=== PATIENT | male | born 1960 | race Caucasian/White ===

== ENCOUNTER 2020-01-16 08:37 | Day surgery (SDC) | payer OTHER, SELFPAY ==
[2020-01-12 08:25] VITALS: BMI 29.1
--- NOTE | 2020-01-15 09:43 | P.CONAN_ITS ---
Documented by User: Gill Shepherd 01/15/20 09:51 HPI - Anesthesia Eval Consult details Narrative: 59yo M for Upper Endoscopy and Colonoscopy Plavix for PAD - OK'd to stop 3 days preop per vascular H/O trach [facility] Past Medical History Medical History (Updated 01/16/20 @ 09:17 by Yuriy Hammond) Atrial fibrillation COPD (chronic obstructive pulmonary disease) GERD (gastroesophageal reflux disease) History of Palmer's esophagus History of femoral angiogram Lab test negative for COVID-19 virus Peripheral arterial disease Splenic vein thrombosis Surgical History Surgical History (Updated 01/15/20 @ 09:45 by Gill Shepherd) H/O colonoscopy History of esophagogastroduodenoscopy (EGD) Hx of tracheostomy Social History Social History (Updated 01/16/20 @ 09:24 by Yuriy Hammond) Smoking Status: Current every day smoker Packs Per Day: 1 Years Smoked: 40 Smoking Quit Date: 04/2019 started smoking again August 2019 Advance Directives Information Provided: No Meds Allergies Allergy/AdvReac Type Severity Reaction Status Date / Time No Known Allergies Allergy Verified 01/12/20 08:31 Home Medications Medication Instructions Recorded Confirmed Type aspirin [Aspirin Low Dose] 81 mg PO DAILY 01/12/20 01/16/20 History pantoprazole 40 mg PO DAILY 01/12/20 01/12/20 History tamsulosin 0.8 mg PO BEDTIME 01/12/20 01/12/20 History tiotropium bromide [Spiriva with 1 cap INHALATION DAILY 01/12/20 01/12/20 History HandiHaler] clopidogrel 1 tab PO DAILY 01/15/20 01/16/20 History Exam Exam Date and Time: January 15, 2020 0943 Height,Weight and Vital Signs: Height 6 ft Weight 97.522 kg Assessment and Plan Assessment Anesthesia Assessment: Chart Reviewed Documented by User: Yuriy Hammond 01/16/20 09:53 [facility] Past Medical History Medical History (Updated 01/16/20 @ 09:17 by Yuriy Hammond) Atrial fibrillation COPD (chronic obstructive pulmonary disease) GERD (gastroesophageal reflux disease) History of Palmer's esophagus History of femoral angiogram Lab test negative for COVID-19 virus Peripheral arterial disease Splenic vein thrombosis Surgical History Surgical History (Updated 01/15/20 @ 09:45 by Gill Shepherd) H/O colonoscopy History of esophagogastroduodenoscopy (EGD) Hx of tracheostomy Social History Social History (Updated 01/16/20 @ 09:24 by Yuriy Hammond) Smoking Status: Current every day smoker Packs Per Day: 1 Years Smoked: 40 Smoking Quit Date: 04/2019 started smoking again August 2019 Advance Directives Information Provided: No Meds Allergies Allergy/AdvReac Type Severity Reaction Status Date / Time No Known Allergies Allergy Verified 01/12/20 08:31 Home Medications Medication Instructions Recorded Confirmed Type aspirin [Aspirin Low Dose] 81 mg PO DAILY 01/12/20 01/16/20 History pantoprazole 40 mg PO DAILY 01/12/20 01/12/20 History tamsulosin 0.8 mg PO BEDTIME 01/12/20 01/12/20 History tiotropium bromide [Spiriva with 1 cap INHALATION DAILY 01/12/20 01/12/20 History HandiHaler] clopidogrel 1 tab PO DAILY 01/15/20 01/16/20 History Exam Airway Mallampati Class: II TM Dist: >3cm Neck ROM: Full Denture: Upper and Lower Heart: irreg Assessment and Plan Assessment Anesthesia Assessment: Anesthesia Plan Discussed Final Anesthetic Review NPO: Yes ASA Class: III Final Preanesthetic Review: Consent Obtained/Reviewed Anesthetic Plan Anesthetic Plan: MAC: Disposition: Standard PACU
[2020-01-16 08:55] VITALS: BP 138/93; PULSE 71; RESP 18; TEMP 36.6; O2SAT 97
[2020-01-16] MEDS: Lactated Ringers 1,000 ML 100 ML IVCONT (09:06)
[2020-01-16 09:44] LABS: COVID-19 Test Negative (Negative); IDNOW Serial# 9DD0AD1C
[2020-01-16] MEDS: Albuterol Sulfate (0.083%) 2.5 MG/3 ML VIAL.NEB INHALE (09:56)
[2020-01-16 11:09] VITALS: BP 107/76; PULSE 63; RESP 18; TEMP 36.2; O2SAT 99
--- NOTE | 2020-01-16 11:12 | PM.OP ---
Brief Operative Note Date of Service: 01/16/20 Pre-op diagnosis: Palmer's esophagus, Screening Post-op diagnosis: other (Hiatal hernia, Palmer's esophagus, Colon polyps) Procedure: EGD with biopsies, Colonoscopy to cecum and TI with biopsy and removal of polyps Surgeon: Quinton Campos Anesthesia: MAC Estimated blood loss (mL): 4.0 Pathology: other (A. EG Junction at 39cm B. Polyp at 30cm C. Rectal polyp) Condition: stable Disposition: PACU
[2020-01-16 11:24] VITALS: BP 111/67; PULSE 63; RESP 18; O2SAT 99
--- NOTE | 2020-01-16 11:28 | OP_ITS ---
SURGEON: Quinton Capmos MD INDICATIONS: The patient presents for evaluation of Palmer's esophagus and colorectal cancer screening. Full consent has been obtained from him for this, including risks of bleeding and perforation. PREOPERATIVE DIAGNOSIS: POSTOPERATIVE DIAGNOSIS: PROCEDURE PERFORMED: Esophagogastroduodenoscopy with biopsies, and colonoscopy to cecum and terminal ileum with biopsy and removal of polyps. ESTIMATED BLOOD LOSS: COMPLICATIONS: ANESTHESIA: Monitored anesthesia care. ASSISTANTS: SPECIMENS: PREOPERATIVE DIAGNOSES: Gastroesophageal reflux, Palmer's esophagus, colorectal cancer screening. POSTOPERATIVE DIAGNOSES: Gastroesophageal reflux, Palmer's esophagus, colorectal cancer screening, hiatal hernia, colon polyps, diverticulosis and internal hemorrhoids. DESCRIPTION OF PROCEDURE: The patient was placed in the left lateral decubitus position. The Olympus video gastroscope was passed in the posterior oropharynx and upper esophagus under direct vision. The scope was passed slowly into the distal esophagus. The gastroesophageal junction appeared at 39 cm. There was some small, less than 1 cm areas of probable Palmer's mucosa. There was no evidence of any inflammation, lesions, nor ulceration. The scope was entered into the stomach. There was a small hiatal hernia. The scope was advanced to the pylorus and the duodenum was cannulated to the descending portion. The duodenum including the bulb appeared normal without mass or ulceration. The scope was withdrawn back in the stomach. The gastric antrum and body appeared normal with good peristalsis. The scope was retroflexed visualizing the proximal stomach carefully, which appeared normal, without any sign of mass or ulceration. The scope was straightened out and withdrawn back into the esophagus. Biopsies were obtained at the EG junction at 39 cm. Proximal to that, the esophageal mucosa appeared normal. The scope was withdrawn from the patient. He was turned around for colonoscopy. The digital rectal exam revealed no abnormalities. The Olympus video pediatric colonoscope was entered into the rectum and advanced easily to the cecum. Once in the cecum, I did identify normal-appearing cecal pouch with appendiceal orifice and a normal-appearing ileocecal valve. The terminal ileum was cannulated and appeared normal. The scope was withdrawn back in the colon. The entire cecum and ileocecal valve appeared normal. The scope was slowly withdrawn assessing all mucosal surfaces carefully. Preparation was excellent. At 30 cm and in the rectum, were flat approximately 4 or 5 mm probable hyperplastic polyps, which were each biopsied and completely removed with cold biopsy forceps. I did not visualize any other polyps, colitis, nor angiodysplasia. There was a mild amount of sigmoid diverticulosis. In the rectum, scope was retroflexed visualizing internal hemorrhoids, but no other pathology. The rectal mucosa appeared normal. The scope was straightened out and withdrawn from the patient. He tolerated both procedures well and was returned to the recovery area in stable condition. IMPRESSION: 1. Gastroesophageal reflux, hiatal hernia, history of Palmer's esophagus. 2. Colon polyps. 3. Diverticulosis. 4. Internal hemorrhoids. PLAN: The results of the biopsies will be checked. I would recommend a repeat upper endoscopy in 3 years assuming the Palmer's esophagus biopsies, had no dysplasia. He will continue his pantoprazole. If the colon polyps are tubular adenoma, I would recommend a followup colonoscopy in 5 years. If they are only hyperplastic, I would recommend a followup colonoscopy in 10 years. He was advised to resume his aspirin and Plavix in the next 24 to 48 hours. MD DARREL Sharp/ALISON / [id number]
--- NOTE | 2020-01-16 12:06 | HO.POSTANES ---
Post Anesthesia Evaluation Post Anesthesia Evaluation Vital Signs: Vital Signs Temp Pulse Resp BP Pulse Ox 01/16/20 11:24 97.1 F 63 18 111/67 99 01/16/20 11:09 97.1 F 63 18 107/76 99 01/16/20 08:55 97.8 F 71 18 138/93 H 97 Anesthesia: Monitored Mental Status: Awake Pain Control: Satisfactory Nausea/Vomiting: None Hydration: Adequate Anesthesia-Related Issues: No Anes. Related Issues
== END 2020-01-16 12:06 | disposition home or self-care (01) ==
PROVIDERS: Anesthesiology; PCP Internal Medicine Medical Oncology; Visit Provider Internal Medicine
PROC: (CPT 45380; principal; 2020-01-16 09:40)
DX: Z12.11 Encounter for screening for malignant neoplasm of colon (principal); K63.5 Polyp of colon; K62.1 Rectal polyp; K57.30 Diverticulosis of large intestine without perforation or abscess without bleeding; K64.8 Other hemorrhoids; K22.70 Barrett's esophagus without dysplasia; K21.9 Gastro-esophageal reflux disease without esophagitis; K44.9 Diaphragmatic hernia without obstruction or gangrene; I48.91 Unspecified atrial fibrillation; J44.9 Chronic obstructive pulmonary disease, unspecified; F17.210 Nicotine dependence, cigarettes, uncomplicated; Z79.82 Long term (current) use of aspirin; Z79.899 Other long term (current) drug therapy; Z79.51 Long term (current) use of inhaled steroids
CPT/HCPCS: 45380; 43239; 87635; 88305

== ENCOUNTER 2020-03-24 13:15 | Outpatient (REF) | payer OTHER, SELFPAY ==
--- NOTE | 2020-03-24 | US_ITS ---
EXAMINATION: COLOR-FLOW DUPLEX IMAGING OF THE BILATERAL LOWER EXTREMITY ARTERIAL SYSTEM. VELOCITY MEASUREMENTS THROUGHOUT THE FEMORAL ARTERIES WITH ANKLE-BRACHIAL PERIPHERAL ARTERIAL TESTING. CLINICAL INFORMATION: This is a 58-year-old male with peripheral vascular disease. History of stenting. Interventional Radiologist: Elder Eisenberg M.D., F.S.I.R., F.A.C.R. RIGHT FEMORAL RUNOFF VELOCITIES: The right common femoral artery measures 219 cm/s and triphasic. The right profunda femoral artery is 256 cm/s and is biphasic. Right proximal superficial femoral artery measures 133 cm/s and triphasic. Mid superficial femoral artery is 114 cm/s and triphasic. Distal right superficial femoral artery measures 192 cm/s and is triphasic. Right popliteal velocity measures 116 cm/s and is triphasic. The posterior tibial artery velocity measures 26 cm/s and was monophasic. The right ankle-brachial index is 0.95. This is in the dorsalis pedis. The right ankle-brachial index in the posterior tibial measured 0.46. The stent on the right side was evaluated as below: [place] artery proximal to the stent: 192 cm/s and triphasic. Proximal stent: 182 cm/s and triphasic. Mid stent: 148 cm/s and triphasic. Distal stent: 122 cm/s and triphasic. The [place] artery distal to the stent 147 cm/s and triphasic. LEFT FEMORAL RUNOFF VELOCITIES: The left common femoral artery measures 236 cm/s and triphasic. The left profunda femoral artery is 200 cm/s and is triphasic. Left proximal superficial femoral artery measures 137 cm/s and triphasic. Mid superficial femoral artery is 120 cm/s and triphasic. Distal left superficial femoral artery measures 138 cm/s and is triphasic. Left popliteal velocity measures 129 cm/s and is triphasic. The posterior tibial artery velocity measures 72 cm/s and was monophasic. The left ankle-brachial index is 1.14. US/US VANCE complete IMPRESSION: 1. The stent in the right side appears to be patent without hemodynamically significant stenosis. 2. There are elevated velocities bilaterally within the common femoral arteries and profunda femoral arteries which is suspicious for hemodynamically significant inflow stenoses.
--- NOTE | 2020-03-24 | US_ITS ---
EXAMINATION: COLOR-FLOW DUPLEX IMAGING OF THE BILATERAL LOWER EXTREMITY ARTERIAL SYSTEM. VELOCITY MEASUREMENTS THROUGHOUT THE FEMORAL ARTERIES WITH ANKLE-BRACHIAL PERIPHERAL ARTERIAL TESTING. CLINICAL INFORMATION: This is a 58-year-old male with peripheral vascular disease. History of stenting. Interventional Radiologist: Elder Eisenberg M.D., F.S.I.R., F.A.C.R. RIGHT FEMORAL RUNOFF VELOCITIES: The right common femoral artery measures 219 cm/s and triphasic. The right profunda femoral artery is 256 cm/s and is biphasic. Right proximal superficial femoral artery measures 133 cm/s and triphasic. Mid superficial femoral artery is 114 cm/s and triphasic. Distal right superficial femoral artery measures 192 cm/s and is triphasic. Right popliteal velocity measures 116 cm/s and is triphasic. The posterior tibial artery velocity measures 26 cm/s and was monophasic. The right ankle-brachial index is 0.95. This is in the dorsalis pedis. The right ankle-brachial index in the posterior tibial measured 0.46. The stent on the right side was evaluated as below: [place] artery proximal to the stent: 192 cm/s and triphasic. Proximal stent: 182 cm/s and triphasic. Mid stent: 148 cm/s and triphasic. Distal stent: 122 cm/s and triphasic. [place] artery distal to the stent 147 cm/s and triphasic. LEFT FEMORAL RUNOFF VELOCITIES: The left common femoral artery measures 236 cm/s and triphasic. The left profunda femoral artery is 200 cm/s and is triphasic. Left proximal superficial femoral artery measures 137 cm/s and triphasic. Mid superficial femoral artery is 120 cm/s and triphasic. Distal left superficial femoral artery measures 138 cm/s and is triphasic. Left popliteal velocity measures 129 cm/s and is triphasic. The posterior tibial artery velocity measures 72 cm/s and was monophasic. The left ankle-brachial index is 1.14. US/US arterial duplex LE BI IMPRESSION: 1. The stent in the right side appears to be patent without hemodynamically significant stenosis. 2. There are elevated velocities bilaterally within the common femoral arteries and profunda femoral arteries which is suspicious for hemodynamically significant inflow stenoses.
== END 2020-03-24 13:16 | disposition home or self-care (01) ==
LOC: HO.US 13:15
PROVIDERS: Visit Provider Surgery Vascular Surgery
DX: I73.9 Peripheral vascular disease, unspecified (principal)
CPT/HCPCS: 93923; 93925

== ENCOUNTER → 2020-05-04 15:26 | Outpatient (BNVA) | payer OTHER, SELFPAY | PROVIDERS: PCP Internal Medicine Medical Oncology; Visit Provider Surgery Vascular Surgery ==

== ENCOUNTER 2023-04-11 08:55 | Outpatient (REF) | payer MEDICARE, SELFPAY ==
--- NOTE | ~2023-04-11 | XR_ITS ---
EXAMINATION: XR LUMBOSACRAL SPINE WITH OBLIQUES CLINICAL INFORMATION: Right-sided low back pain with right-sided sciatica COMPARISON: None available. TECHNIQUE: 6 views of the lumbosacral spine FINDINGS: Overlying bowel gas limits evaluation. No acute visible fracture or dislocation. Mild multilevel degenerative changes with disc space narrowing, osteophyte formation, and facet arthropathy. Vertebral body heights and disc spaces are maintained. Posterior elements are intact. Paraspinal soft tissues are unremarkable. XR/XR lumbar spine 4V min IMPRESSION: 1. Overlying bowel gas limits evaluation. 2. No acute visible fracture or dislocation. 3. Mild multilevel degenerative changes.
[2023-04-11 09:18] LABS: MANUAL DIFF FLAG NO
[2023-04-11 09:48] LABS: Basophils Absolute Auto 0.1 X10*3/uL (0.0-0.2); Basophils Percent Auto 0.9 % (0-2); Eosinophils Absolute Auto 0.1 X10*3/uL (0.0-0.4); Eosinophils Percent Auto 2.2 % (0-4); Hematocrit 51.2 % (42.0-52.0); Hemoglobin 17.1 g/dl (14.0-18.0); Imm Gran Abs Auto 0.02 X10*3/uL (0.00-0.03); Imm Gran Pct Auto 0.3 % (0.0-0.4); Lymphocytes Absolute Auto 1.5 X10*3/uL (1.2-4.9); Lymphocytes Percent Auto 26.3 % (20-40); Mean Corpuscular HGB Conc 33.4 g/dl (31.0-36.0); Mean Corpuscular Hemoglobin 31.8 pg (27.0-33.0); Mean Corpuscular Volume 95.2 fL (80.0-98.0); Mean Platelet Volume 9.6 fL (9.4-12.4); Monocytes Absolute Auto 0.6 X10*3/uL (0.1-1.2); Monocytes Percent Auto 9.9 % (2-11); Neutrophils Absolute Auto 3.5 x10*3/uL (2.0-8.3); Neutrophils Percent Auto 60.4 % (45-73); Platelet Count 299 X10*3/uL (160-400); Red Blood Count 5.38 X10*6/uL (4.60-5.80); Red Cell Distribution Width 12.1 % (11.0-16.0); White Blood Count 5.9 X10*3/uL (4.8-10.8)
[2023-04-11 10:32] LABS: Alanine Aminotransferase 15 U/L (0-40); Albumin Level 3.8 g/dL (3.5-5.0); Alkaline Phosphatase 61 U/L (39-117); Anion Gap 11 (12-20); Aspartate Amino Transferase 22 U/L (5-37); Bilirubin Total 0.8 mg/dL (0.0-1.0); Blood Urea Nitrogen 16 mg/dL (9-16); Calcium 9.3 mg/dL (8.4-10.2); Carbon Dioxide 28 mmol/L (22-29); Chloride 105 mmol/L (96-108); Cholesterol 148 mg/dL (<200); Estimated Glomerular Filt Rate > 60; Glucose Fasting 91 mg/dL (60-99); HDL Cholesterol 57 mg/dL (>40); LDL Cholesterol Calculated 77 mg/dL (<100); Potassium 4.3 mmol/L (3.3-5.1); Sodium 140 mmol/L (135-145); Total Protein 6.4 g/dL (6.5-8.0); Triglycerides 72 mg/dL (<150)
[2023-04-11 10:44] LABS: Prostate Specific Antigen 1.08 ng/mL (<0.05-4.0)
== END 2023-04-11 08:56 | disposition home or self-care (01) ==
LOC: HO.XRAY 08:55
PROVIDERS: Visit Provider Internal Medicine Medical Oncology
DX: M54.41 Lumbago with sciatica, right side (principal); N40.1 Benign prostatic hyperplasia with lower urinary tract symptoms; N13.8 Other obstructive and reflux uropathy; K22.70 Barrett's esophagus without dysplasia; E66.3 Overweight; I73.9 Peripheral vascular disease, unspecified; E78.2 Mixed hyperlipidemia; Z12.5 Encounter for screening for malignant neoplasm of prostate
CPT/HCPCS: 36415; 72110; 80053; 80061; 84153; 85025

== ENCOUNTER 2023-05-10 08:41 | Outpatient (REF) | payer MEDICARE, SELFPAY ==
--- NOTE | ~2023-05-10 | US_ITS ---
EXAMINATION: Noninvasive assessment of the bilateral lower extremities with ARTERIAL DUPLEX and ANKLE BRACHIAL INDICES (ABIs). CLINICAL INFORMATION: Peripheral vascular disease with claudication TECHNIQUE: Duplex Doppler techniques with waveform analysis and measurement of velocities in the bilateral common femoral, profunda femoris, superficial femoral, popliteal and tibial arteries were performed. Additionally, ankle pulse volume recordings, ankle pressure measurements and ankle brachial indices were obtained of the lower extremity arterial system bilaterally. The study was performed only at rest. COMPARISON: 03/24/2020 FINDINGS: DIRECT DUPLEX DOPPLER FINDINGS: RIGHT LEG: Common femoral artery: 145 cm/s, phasicity: Triphasic. Mild calcified plaque Profunda femoris artery: 130 cm/s, phasicity: Triphasic Superficial femoral artery (proximal): 133 cm/s, phasicity: Triphasic. Mild noncalcified plaque Superficial femoral artery (mid): 73.6 cm/s, phasicity: Monophasic Superficial femoral artery (distal): Underlying vascular stent with occlusion at the proximal margin. Collateral vessels arising from the distal superficial femoral artery. Popliteal artery: Proximal segment is occluded. Reconstituted flow in the mid to distal segment. 29.0 Cm/s, phasicity: Monophasic Posterior tibial artery: Proximal and mid segments are occluded with reconstituted flow in the distal segment. Velocity measures 15.8 cm/s, phasicity: Monophasic Peroneal artery: 10.9 cm/s, phasicity: Monophasic Anterior tibial artery: 22.5 cm/s, phasicity: Monophasic Dorsalis pedis artery: Occluded LEFT LEG: Common femoral artery: 117 cm/s, phasicity: Triphasic Profunda femoris artery: 163 cm/s, phasicity: Triphasic Superficial femoral artery (proximal): 148 cm/s, phasicity: Triphasic Superficial femoral artery (mid): 118 cm/s, phasicity: Triphasic Superficial femoral artery (distal): 126 cm/s, phasicity: Triphasic Popliteal artery: 96 cm/s, phasicity: Triphasic Posterior tibial artery: 17.3 cm/s, phasicity: Monophasic within the proximal segment. Mid and distal segments are occluded Peroneal artery: 73.1 cm/s, phasicity: Biphasic Anterior tibial artery: 70.8 cm/s, phasicity: Triphasic Dorsalis pedis artery: 48.4 cm/s, phasicity: Monophasic ANKLE-BRACHIAL INDEX: Right: Nondiagnostic? Left: Nondiagnostic ANKLE PRESSURES: Right: PT inaudible, DP inaudible Left: PT?inaudible, DP?inaudible ANKLE PVR WAVEFORMS: Right: Abnormal Left: Abnormal US/US arterial duplex LE BI IMPRESSION: Right leg: Stent in the distal superficial femoral artery is occluded with occlusion extending through the proximal popliteal artery. Reconstituted flow in the distal popliteal artery. Markedly dampened arterial waveforms in the below-knee runoff vessels with areas of occlusive changes in the posterior tibial and dorsalis pedis artery Left leg: Patent arterial flow within the left lower extremity except for occlusive changes in the mid to distal posterior tibial artery. This critical result was discussed with Dr. Payton at 1114 on 05/10/2023 and it was ascertained that the content and urgency of the report was understood at the time of direct communication. VANCE Reference: - >1.4 = calcified vessels - 0.9 - 1.4 = normal - no significant arterial disease - 0.7 - 0.89 = mild peripheral arterial disease - 0.51 - 0.69 = moderate peripheral arterial disease - ? 0.50 = severe peripheral arterial disease - < .30 = critical arterial disease
== END 2023-05-10 08:42 | disposition home or self-care (01) ==
LOC: HO.US 08:41
PROVIDERS: PCP Internal Medicine Medical Oncology; Visit Provider Surgery Vascular Surgery
DX: I70.213 Atherosclerosis of native arteries of extremities with intermittent claudication, bilateral legs (principal)
CPT/HCPCS: 93923; 93925

== ENCOUNTER → 2023-05-15 10:30 | Outpatient (BNVA) | payer MEDICARE, SELFPAY | PROVIDERS: PCP Internal Medicine Medical Oncology; Visit Provider Surgery Vascular Surgery | DX: I73.9 Peripheral vascular disease, unspecified (principal) | CPT/HCPCS: 99202 ==

== ENCOUNTER 2023-06-18 08:36 | Outpatient (REF) | payer MEDICARE, SELFPAY ==
[2023-06-18 09:44] LABS: Blood Urea Nitrogen 12 mg/dL (9-16); Estimated Glomerular Filt Rate > 60
== END 2023-06-18 08:37 | disposition home or self-care (01) ==
LOC: HO.LAB 08:36
PROVIDERS: PCP Internal Medicine Medical Oncology; Visit Provider Surgery Vascular Surgery
DX: I73.9 Peripheral vascular disease, unspecified (principal)
CPT/HCPCS: 36415; 82565; 84520

== ENCOUNTER 2023-06-28 08:18 | Outpatient (REF) | payer MEDICARE, SELFPAY ==
--- NOTE | ~2023-06-28 | CT_ITS ---
STUDY PERFORMED: CTA ABDOMEN, PELVIS AND LOWER EXTREMITY RUNOFF WITH CONTRAST HISTORY: Reason for Exam I73.9 - Peripheral vascular disease, unspecified DESCRIPTION: Routine abdominal aorta and lower extremity runoff CTA protocol with contrast was performed. 100 mL of Omnipaque was administered. 3D POSTPROCESSING: Multiple 3-D angiographic images were processed from the initial data set by the [facility] under concurrent physician supervision. DOSE LOWERING TECHNIQUES: This CT examination was performed using dose optimization techniques as appropriate, variously including the following: - Automated exposure control - Adjustment of mA and/or kV according to patient size (this includes techniques or standardized protocols for targeted exams where dose is matched to indication/reason for exam; i.e. extremities or head) - Use of iterative reconstruction technique DLP: 733 mGycm. COMPARISON: Lower extremity duplex and ABIs 05/10/2023 FINDINGS: VASCULAR: ABDOMINAL AORTA: patent and normal in caliber RIGHT LOWER EXTREMITY: - Common Iliac Artery: patent - Internal Iliac Artery: patent - External Iliac Artery: patent - Common Femoral Artery: patent - Profunda Femoral Artery: patent - Superficial Femoral Artery: Scattered calcific and fibrofatty plaque causing at most mild stenoses. - Popliteal Artery: Occluded stent. There is reconstitution of the distal popliteal artery. - Anterior Tibial Artery: Fibrofatty and calcific plaque throughout, but appears patent -Tibioperoneal trunk: patent - Posterior Tibial Artery: Fibrofatty and calcific plaque throughout, but appears patent - Peroneal Artery: Fibrofatty and calcific plaque throughout, but appears patent LEFT LOWER EXTREMITY: - Common Iliac Artery: patent - Internal Iliac Artery: patent - External Iliac Artery: patent - Common Femoral Artery: patent - Profunda Femoral Artery: patent - Superficial Femoral Artery: patent - Popliteal Artery: Fibrofatty plaque causing 50% stenosis at the level of the joint space. - Anterior Tibial Artery: Multifocal fibrofatty and calcific plaque causing multifocal stenoses, but overall patent. -Tibioperoneal trunk: patent - Posterior Tibial Artery: Multifocal fibrofatty and calcific plaque causing multifocal stenoses, but overall patent. - Peroneal Artery: patent CELIOMESENTERIC ARTERIES: The celiac artery, SMA, and RONDA are patent RENAL ARTERIES: patent bilateral renal arteries NONVASCULAR: Lung Bases: The visualized lung bases are unremarkable. Liver and Biliary Tree: The liver is normal in size, shape, and attenuation. No focal hepatic lesion or biliary ductal dilatation is present. Gallbladder: The gallbladder is unremarkable with no evidence of radiopaque gallstones, gallbladder wall thickening, or obvious pericholecystic inflammatory changes. Pancreas: Unremarkable. Spleen: Unremarkable. Adrenal Glands: Unremarkable. Kidneys and Ureters: The kidneys are normal in size. Mild left-sided hydronephrosis. No hydroureter. Bladder: Unremarkable. Gastrointestinal Tract: The small and large bowel are unremarkable. The appendix is unremarkable. Abdominal Wall: Small fat-containing periumbilical hernia. Lymph Nodes: Normal. Pelvic Viscera: The prostate is enlarged. Osseous Structures: Unremarkable. CT/CT angio abd aorta runoff IMPRESSION: Vascular: Right lower extremity: Inflow: Patent Femoral-popliteal: Occluded popliteal artery stent, with reconstitution of the distal popliteal artery Runoff: Multifocal disease within all 3 tibial arteries Left lower extremity: Inflow: Patent Femoral-popliteal: Fibrofatty plaque in the mid popliteal artery causing 50% stenosis at the level of the joint space Runoff: The peroneal artery is patent. Multifocal plaque within the anterior tibial artery and posterior tibial artery, which appear patent Nonvascular: Mild left-sided hydronephrosis, but no hydroureter
[2023-06-28] MEDS: iohexoL 350 MG/ML 100 ML INFUS..BTL IV (09:53)
== END 2023-06-28 08:19 | disposition home or self-care (01) ==
LOC: HO.CT 08:18
PROVIDERS: PCP Internal Medicine Medical Oncology; Visit Provider Surgery Vascular Surgery
DX: I73.9 Peripheral vascular disease, unspecified (principal)
CPT/HCPCS: 75635; Q9967

== ENCOUNTER 2023-07-03 11:15 | Outpatient (AMB) | payer MEDICARE, SELFPAY ==
--- NOTE | 2023-07-03 11:23 | MHC.OFFVIS ---
Intake Visit Reasons: f/u s/p CTA w/ runoff 06/28/23 *urgent* Intake Note: Patient presents for 06/28/23 CTA follow up. Patient is complaining about pain and numbing in the right foot, makes it hard for him to sleep. Taking tylenol and ibuprofen. Pain exasterbates with climbing stairs and walking. Right great toe has some swelling and patient states it seeps blood under the nail. Accompanied by: Self / Same As Patient Allergies No Known Allergies Allergy (Verified 07/03/23 11:27) HPI HPI f/u s/p CTA w/ runoff 06/28/23 *urgent*: Details: Pleasant 63-year-old gentleman presents for follow-up status post CT angiogram. He reports that he has continued claudication right more so than left. He can barely walk a block. Undergone right SFA plasty and stent in May of 2019. He was lost to follow-up. At the current time he works for [employer] and has difficulty doing his job. He now presents for follow-up. [facility] Medical History Atrial fibrillation History of Palmer's esophagus Splenic vein thrombosis History of femoral angiogram GERD (gastroesophageal reflux disease) Lab test negative for COVID-19 virus COPD (chronic obstructive pulmonary disease) Peripheral arterial disease Surgical History Hx of tracheostomy History of esophagogastroduodenoscopy (EGD) H/O colonoscopy Social History Patient Tobacco Use Status: Former Tobacco user Cigarette Packs Per Day: 1 Years Smoked: 40 Review of Systems Const All systems reviewed & are unremarkable except as noted in HPI and below Reports no additional complaints ENT Reports Normal hearing present Card Denies chest pain, Denies chest pain at rest, Denies chest pain with activity and Denies pedal edema Resp Denies cough GI Denies abdominal pain Musc Denies abnormal gait, Denies muscle cramps and Denies radiating pain into limb Skin/Breast Denies skin ulcer and Denies wounds Neuro Reports Normal hearing present and Denies abnormal gait Psych Reports no additional complaints Physical Exam Const General: cooperative, healthy appearing and comfortable Orientation/consciousness: oriented to person, oriented to place and oriented to time HEENT Head: Yes normal to inspection Neck Neck: Yes normal visual inspection Carotids: no bruits Chest Chest palpation & inspection: normal inspection of the chest Resp Effort & Inspection: normal respiratory effort and able to speak in complete sentences Auscultation: clear to auscultation bilaterally, no crackles, no rales, no rhonchi and no wheezes Cardio Other: Bilateral DP signals Rate: regular rate Rhythm: regular rhythm Heart sounds: S1 normal heart sound present and S2 normal heart sound present Bruits: no carotid bruits GI Inspection: Yes normal to inspection Skin Wounds: no wounds Hair: normal Neuro General: oriented to person, oriented to place and oriented to time Cranial nerves: Yes CN's II-XII intact bilaterally and Yes Normal hearing present Cognition (Neuro): normal cognition Motor exam (neuro): 5/5 motor strength present throughout Extrem Other: venous exam: No significant superficial varicosities or spider telangiectasias, minimal edema General: No clubbing, No cyanosis and No edema Psych Appearance: grossly normal Mental Status: mental status grossly normal Speech and movement: Normal speech and movement present Results Reviewed Results Reviewed: CT angiogram dated 06/28/2023 demonstrates right SFA stent occlusion. Written report and images were reviewed. Assessment & Plan Assessment & Plan (1) Peripheral arterial disease: Comment: 06/18/2019 right SFA stent right popliteal plasty Code(s): I73.9 - Peripheral vascular disease, unspecified Category: Medical Plan Patient notes leg pain when walking distances. I have discussed the pathophysiology of peripheral vascular disease with the patient. I have also discussed risk factor modification. I have reviewed the patient's CT scan demonstrates right SFA occlusion . the patient would benefit from a right leg endovascular peripheral angiogram with possible angioplasty, stent, and/or atherectomy. This has been discussed in detail with the patient along with risks, benefits, and complications. This includes but is not limited to bleeding, infection, heart attack, need for emergent surgical repair, limb ischemia, blood vessel damage, bleeding, puncture, kidney injury, bruising, allergic reaction, and skin reaction. The patient demonstrates a clear understanding. We will schedule for the next appropriate time. Thank you for allowing us to assist in this patient's care. Coding Level of Care Code Est Pt Level 4 (90667) Diagnoses Peripheral arterial disease I73.9
== END 2023-07-03 11:50 | disposition home or self-care (01) ==
PROVIDERS: PCP Internal Medicine Medical Oncology; Visit Provider Surgery Vascular Surgery
DX: I73.9 Peripheral vascular disease, unspecified (principal)
CPT/HCPCS: 99214

== ENCOUNTER → 2023-07-03 11:15 | Outpatient (BNVA) | payer MEDICARE, SELFPAY | PROVIDERS: PCP Internal Medicine Medical Oncology; Visit Provider Surgery Vascular Surgery | DX: I73.9 Peripheral vascular disease, unspecified (principal) | CPT/HCPCS: 99212 ==

== ENCOUNTER 2023-07-18 05:58 | Day surgery (SDC) | payer MEDICARE, SELFPAY ==
[2023-07-18] VITALS (8 sets, daily range): BP systolic 124–144; BP diastolic 60–75; PULSE 61–77; RESP 14–18; TEMP 37.1–37.2; O2SAT 95–99; BMI 25.4
[2023-07-18 06:25] LABS: MANUAL DIFF FLAG NO
[2023-07-18 06:26] LABS: Basophils Absolute Auto 0.1 X10*3/uL (0.0-0.2); Basophils Percent Auto 0.6 % (0-2); Eosinophils Absolute Auto 0.2 X10*3/uL (0.0-0.4); Eosinophils Percent Auto 3.1 % (0-4); Hematocrit 42.7 % (42.0-52.0); Imm Gran Abs Auto 0.03 X10*3/uL (0.00-0.03); Imm Gran Pct Auto 0.4 % (0.0-0.4); Lymphocytes Absolute Auto 1.9 X10*3/uL (1.2-4.9); Lymphocytes Percent Auto 25.2 % (20-40); Mean Corpuscular HGB Conc 35.1 g/dl (31.0-36.0); Mean Corpuscular Hemoglobin 33.3 pg (27.0-33.0); Mean Corpuscular Volume 94.7 fL (80.0-98.0); Mean Platelet Volume 9.3 fL (9.4-12.4); Monocytes Absolute Auto 0.8 X10*3/uL (0.1-1.2); Monocytes Percent Auto 10.8 % (2-11); Neutrophils Absolute Auto 4.6 x10*3/uL (2.0-8.3); Neutrophils Percent Auto 59.9 % (45-73); Platelet Count 303 X10*3/uL (160-400); Red Blood Count 4.51 X10*6/uL (4.60-5.80); Red Cell Distribution Width 13.4 % (11.0-16.0); White Blood Count 7.7 X10*3/uL (4.8-10.8)
[2023-07-18 06:52] LABS: Blood Urea Nitrogen 22 mg/dL (9-16); Creatinine Clr Calc Pharmacy 87.8; Estimated Glomerular Filt Rate > 60
[2023-07-18] MEDS: Albuterol Sulfate (0.083%) 2.5 MG/3 ML VIAL.NEB INHALE (07:17)
--- NOTE | 2023-07-18 07:24 | PC.NURSE ---
at 623 md made aware of questionable rhythm with irregularly regular. no ekg in computer to compare and none wanted today to be done per dr ortiz.
--- NOTE | 2023-07-18 09:21 | W.PM.OPN ---
Operative Note Operative Note Date of Service: 07/18/23 Narrative: Angiogram report from [facility] Preoperative diagnosis: Atherosclerosis of right lower extremity with activity limiting claudication Postoperative diagnosis: Same Procedure: 1. Ultrasound-guided left common femoral access 2. Aortogram with right lower extremity runoff Surgeon:Bimal Knott M.D., FACS, RPVI [place]pper Hand:None Anesthesia: Local with moderate conscious sedation. Total intraservice moderate sedation time was 47 minutes. I monitored the patient's level of consciousness and physiologic status continuously throughout the procedure. Specimens:none Drains:none Estimated blood loss: Less than 10 ml Implant: None Indications: Very pleasant 63-year-old gentleman who has had undergone prior right lower extremity stenting which has gone on to occlude. He now presents for angiogram with possible intervention. The patient has signed the informed consent after reviewing risks, complications, benefits, and alternatives previously discussed with the patient. The patient was given the opportunity to ask any additional questions or voice any concerns. All questions were answered to the patient's satisfaction. Procedure in detail: Patient was brought to the angiography suite prior to which a time-out was called for patient identification and site verification. Bilateral groins were prepped and draped in the standard surgical fashion. Under ultrasound guidance left common femoral was punctured with micro puncture needle and wire. Subsequently a precision 4 [place] sheath was then placed. Bentson wire was advanced to the level of the aorta. 4 [place] Flush catheter was brought up and parked at the level of the renal arteries. Aortogram was then undertaken. Catheter was brought down to the level of the iliac bifurcation. Iliacs were subsequently imaged. Catheter was then brought in up and over to the right side SFA. Runoff study was then undertaken. We then exchanged for an up and over 5 [place] sheath. At this time 5000 units of systemic heparin was administered. We used a Glidewire Advantage to try to advance through the prior right distal SFA occlusion. Multiple attempts were made to try to cross beyond the stent into the popliteal occlusion. We exchanged out for a stiff glidewire, and then a to room 0 mm wire which was an 018 wire. Multiple attempts with multiple orthogonal views were attempted to traverse this occlusion. We were unsuccessful. At this time we did a full on diagnostic angiogram catheter wire sheath was then brought back to the ipsilateral side and StarClose closure device was then deployed. Interpretation of films: 1. Ultrasound demonstrates appropriate femoral puncture. Image of which was saved. 2. Aortogram demonstrates appropriate caliber aorta. Minimal disease. Appropriate take-off of the renals. 3. Iliac images demonstrate no significant disease 4. Right Leg Common femoral artery: No significant disease Profundus Femoris: No significant disease Superficial femoral artery: Patent to Abbe's canal and occludes at the prior stent Popliteal artery (p1,p2,p3): P1 segment is occluded it reconstitutes at the P2 segment exactly at the behind knee popliteal Anterior tibial artery: Dominant runoff to the foot Peroneal artery: Occluded Posterior tibial artery: Occluded Dorsalis pedis/plantar arch: Incomplete Conclusion: 1. Successful diagnostic angiogram. Patient will require fem to below-knee popliteal bypass if required. 2. Anticoagulation status: No change This note is constructed using voice recognition software. While every effort has been made to ensure accuracy, vacuum technician errors may have been included. Thank you for allowing me to participate in the care of your patient. Yours sincerely, Bimal Knott MD, FACS, R.P.V.I.
[2023-07-18] MEDS: oxyCODONE HCl Immed Release 5 MG TABLET PO (10:41)
== END 2023-07-18 13:30 | disposition home or self-care (01) ==
PROVIDERS: PCP Internal Medicine Medical Oncology; Visit Provider Surgery Vascular Surgery
PROC: (CPT 36247; 2023-07-18 07:30)
DX: I70.211 Atherosclerosis of native arteries of extremities with intermittent claudication, right leg (principal); G89.4 Chronic pain syndrome; G90.521 Complex regional pain syndrome I of right lower limb; I48.91 Unspecified atrial fibrillation; J44.9 Chronic obstructive pulmonary disease, unspecified; K21.9 Gastro-esophageal reflux disease without esophagitis; Z87.19 Personal history of other diseases of the digestive system; Z87.891 Personal history of nicotine dependence
CPT/HCPCS: 36247; 36415; 75630; 76937; 82565; 84520; 85025; 94640; 99152; 99153; A4364; C1725; C1757; C1760; C1769; C1887; J1644; J2250; J2310; J3010; Q9967

== ENCOUNTER → 2023-07-18 05:58 | Outpatient (BNV) | payer MEDICARE, SELFPAY | PROVIDERS: PCP Internal Medicine Medical Oncology; Visit Provider Surgery Vascular Surgery | DX: I70.211 Atherosclerosis of native arteries of extremities with intermittent claudication, right leg (principal) | CPT/HCPCS: 36247; 75625; 75710; 76937; 99152 ==

== ENCOUNTER 2023-07-24 09:24 | Outpatient (AMB) | payer MEDICARE, SELFPAY ==
--- NOTE | 2023-07-24 09:29 | MHC.OFFVIS ---
Vital Signs 07/24/23 09:40 Height 6 ft Weight 197 lb BMI 26.7 Intake Visit Reasons: 1 week angio follow up 07/18/2023 Intake Note: RIght Leg Angio 07/18/23. Pt states Right LE calf pain after walking about 50 feet, foot pain is constant w/ or w/o ambulation. Pt stated that they cut back on tylenol and ibuprofen. Accompanied by: Self / Same As Patient Allergies No Known Allergies Allergy (Verified 07/24/23 09:42) HPI HPI 1 week angio follow up 07/18/2023: Details: Very pleasant 63-year-old gentleman presents for follow-up status post diagnostic angiogram on 07/18/2023. Demonstrated distal SFA along with popliteal occlusion up to the P2 segment. He ambulates 30 ft at most. He does have difficulty climbing up a flight of stairs and it is unclear whether this is the leg pain or other issues. Does occasionally get short of breath. He now presents for routine postprocedure follow-up. [facility] Medical History (Updated 07/24/23 @ 10:32 by Bimal Knott MD) S/P angiogram of extremity (07/18/23) Atrial fibrillation History of Palmer's esophagus Splenic vein thrombosis History of femoral angiogram GERD (gastroesophageal reflux disease) Lab test negative for COVID-19 virus COPD (chronic obstructive pulmonary disease) Peripheral arterial disease Surgical History Hx of tracheostomy History of esophagogastroduodenoscopy (EGD) H/O colonoscopy Social History Patient Tobacco Use Status: Former Tobacco user Cigarette Packs Per Day: 1 Years Smoked: 40 Review of Systems Const All systems reviewed & are unremarkable except as noted in HPI and below Reports no additional complaints ENT Reports Normal hearing present Card Denies chest pain, Denies chest pain at rest, Denies chest pain with activity and Denies pedal edema Resp Denies cough GI Denies abdominal pain Musc Denies abnormal gait, Denies muscle cramps and Denies radiating pain into limb Skin/Breast Denies skin ulcer and Denies wounds Neuro Reports Normal hearing present and Denies abnormal gait Psych Reports no additional complaints Physical Exam Vital Signs: BMI result Body Mass Index 26.7 Const General: cooperative, healthy appearing and comfortable Orientation/consciousness: oriented to person, oriented to place and oriented to time HEENT Head: Yes normal to inspection Neck Neck: Yes normal visual inspection Carotids: no bruits Chest Chest palpation & inspection: normal inspection of the chest Resp Effort & Inspection: normal respiratory effort and able to speak in complete sentences Auscultation: clear to auscultation bilaterally, no crackles, no rales, no rhonchi and no wheezes Cardio Other: Bilateral DP signals Rate: regular rate Rhythm: regular rhythm Heart sounds: S1 normal heart sound present and S2 normal heart sound present Bruits: no carotid bruits Peripheral pulses: Peripheral pulses 2+ throughout GI Inspection: Yes normal to inspection Skin Wounds: no wounds Hair: normal Neuro General: oriented to person, oriented to place and oriented to time Cranial nerves: Yes CN's II-XII intact bilaterally and Yes Normal hearing present Cognition (Neuro): normal cognition Motor exam (neuro): 5/5 motor strength present throughout Extrem Other: venous exam: No significant superficial varicosities or spider telangiectasias, minimal edema General: No clubbing, No cyanosis and No edema Psych Appearance: grossly normal Mental Status: mental status grossly normal Speech and movement: Normal speech and movement present Assessment & Plan Assessment & Plan (1) Peripheral arterial disease: Comment: 06/18/2019 right SFA stent right popliteal plasty 07/18/2023 - diagnostic angiogram Code(s): I73.9 - Peripheral vascular disease, unspecified Category: Medical Plan: In short, patient has gone on to occlude the right SFA stent and he has occlusion distal to that down into the popliteal artery. Patient will require right femoral to popliteal bypass. This will be an extended procedure as it will require vein harvesting as it will be a below-knee bypass. Risks benefits complications were discussed in detail with the patient. He understood and would like to move forward. We will obtain cardiac risk stratification. In addition we will obtain pulmonary evaluation as well as he does have occasional shortness of breath. He will require vein mapping for vein harvest for the bypass. Finally we did refer him to pain management as well as he did have excessively high use Tylenol and nonsteroidals. We will schedule as soon as possible. Thank you for allowing us to assist in his care. If there are any questions or concerns please do not hesitate to contact us Orders: Referrals Pain Management Referral [id number] - Pain in right leg Coding Level of Care Code Est Pt Level 4 (88878) Diagnoses Peripheral arterial disease I73.9
[2023-07-24 09:40] VITALS: BMI 26.7
== END 2023-07-24 10:10 | disposition home or self-care (01) ==
PROVIDERS: PCP Internal Medicine Medical Oncology; Visit Provider Surgery Vascular Surgery
DX: I73.9 Peripheral vascular disease, unspecified (principal)
CPT/HCPCS: 99214

== ENCOUNTER → 2023-07-24 09:24 | Outpatient (BNVA) | payer MEDICARE, SELFPAY | PROVIDERS: PCP Internal Medicine Medical Oncology; Visit Provider Surgery Vascular Surgery | DX: I73.9 Peripheral vascular disease, unspecified (principal) | CPT/HCPCS: 99212 ==

== ENCOUNTER 2023-07-25 10:54 | Outpatient (AMB) | payer MEDICARE, SELFPAY ==
--- NOTE | 2023-07-25 10:59 | A.OFFVIS_ITS ---
Vital Signs 07/25/23 11:11 Height 6 ft Weight 186 lb 4 oz BMI 25.3 BP 142/66 H Blood Pressure Location Lt brachial Position Sitting Respiration 16 Pulse 62 Pulse Source Pulse Oximeter Pulse Oximetry (%) 96 Oxygen Delivery Method Room Air Intake Visit Reasons: RIGHT LEG PAIN Intake Note: Patient comes in for initial visit was referred by [facility] Vascular surgeon. Reports pain 10/05. Allergies No Known Allergies Allergy (Verified 07/25/23 11:11) HPI Comments Details: Zan is very pleasant 63 years old gentleman who presents in my office with complains on pain in the right lower extremity. He reported the pain started 6 months ago. He is patient of Dr. Knott, he is under observation for PND. He had interventional stent placement previously however recently he has progression of the atherosclerosis of the right lower extremity and now Dr. Knott is considering to perform femoral popliteal bypass on this patient. The patient was sent here to discuss pain management with me. He reports typical symptoms of vascular claudication with pain getting stronger the longer the distance he were walking. He is reporting severe pain at night which prevents him from sleeping. He reports that he needs to keep his leg below the level of the bed to help the pain in the leg at night. He is taking exuberant doses of the ibuprofen and Tylenol to help his pain. He reports his pain in terms of tissue damage as pulsing, throbbing, pounding, pinching, cramping, crushing, tingling, stinging, tiring, exhausting. He reports that his pain is severely interfere with his activities of daily living. 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 He is scheduled for bypass surgery on August 12. He exhibits typical signs on physical exam of the vascular insufficiency of the lower extremity with signs of Complex regional pain syndrome present. On the angiogram he demonstrates distal SFA as well as popliteal artery occlusion. His past medical history significant for atrial fibrillation, COPD, GERD, Palmer's esophagus, peripheral arterial disease, history of splenic vein thrombosis. His past surgical history significant for gastroscopy, the insertion of the stent into SFA. 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 He denies drinking alcohol, admits smoking half a pack of cigarettes per day, he denies recreational drugs. [facility] Medical History (Updated 07/25/23 @ 12:14 by Jadon Payne MD) S/P angiogram of extremity (07/18/23) Atrial fibrillation History of Palmer's esophagus Splenic vein thrombosis History of femoral angiogram GERD (gastroesophageal reflux disease) Lab test negative for COVID-19 virus COPD (chronic obstructive pulmonary disease) Peripheral arterial disease Surgical History Hx of tracheostomy History of esophagogastroduodenoscopy (EGD) H/O colonoscopy Social History Patient Tobacco Use Status: Former Tobacco user Cigarette Packs Per Day: 1 Years Smoked: 40 Review of Systems Const All systems reviewed & are unremarkable except as noted in HPI and below Reports no additional complaints ENT Reports Normal hearing present Card Denies chest pain, Denies chest pain at rest, Denies chest pain with activity and Denies pedal edema Resp Denies cough GI Denies abdominal pain Musc Denies abnormal gait, Denies muscle cramps and Denies radiating pain into limb Skin/Breast Denies skin ulcer and Denies wounds Neuro Reports Normal hearing present and Denies abnormal gait Psych Reports no additional complaints Physical Exam Vital Signs: Last Vital Signs Pulse 62 07/25/23 11:11 Resp 16 07/25/23 11:11 BP 142/66 H 07/25/23 11:11 Pulse Ox 96 07/25/23 11:11 Oxygen Delivery Method Room Air 07/25/23 11:11 BMI result Body Mass Index 25.3 Const General: cooperative, healthy appearing and comfortable Orientation/consciousness: oriented to person, oriented to place and oriented to time HEENT Head: Yes normal to inspection Neck Neck: Yes normal visual inspection Carotids: no bruits Chest Chest palpation & inspection: normal inspection of the chest Resp Effort & Inspection: normal respiratory effort and able to speak in complete sentences Cardio Jugular venous distension: no JVD GI Inspection: Yes normal to inspection Skin Wounds: no wounds Hair: normal Neuro General: oriented to person, oriented to place and oriented to time Cranial nerves: Yes Normal hearing present Cognition (Neuro): normal cognition Motor exam (neuro): 5/5 motor strength present throughout Extrem Other: The skin of the lower portion of the lower right extremity is glossy on exam. There is minimal edema in the foot. The prominent red discoloration appears on the lower extremity with the patient keeping legs in dependent position. The dorsalis pedis is absent on the right, posterior tibial is absent on the right. The pulses are diminished however detectable on the left. Hyperalgesia is detected on the right lower extremity in the projection of the toes and the foot. There is tenderness on palpation in the toes when in dependent position. There is lack of hair in the projection of the anterior and lateral ellsworth on the right. General: No clubbing, No cyanosis and No edema Psych Appearance: grossly normal Mental Status: mental status grossly normal Speech and movement: Normal speech and movement present Results Reviewed Results Reviewed: CT angiogram dated 06/28/2023 demonstrates right SFA stent occlusion. Written report and images were reviewed. Assessment & Plan Assessment & Plan (1) Peripheral arterial disease: Comment: 06/18/2019 right SFA stent right popliteal plasty 07/18/2023 - diagnostic angiogram Code(s): I73.9 - Peripheral vascular disease, unspecified Category: Medical (2) Complex regional pain syndrome i of right lower limb: Code(s): G90.521 - Complex regional pain syndrome I of right lower limb Category: Medical (3) Chronic pain syndrome: Code(s): G89.4 - Chronic pain syndrome Category: Medical Plan This patient is suffering from severe right lower extremity pain. He is taking exuberant amount of NSAIDs and Tylenol. He is scheduled for fem-pop bypass with Dr. Knott on 08/13/2023. There will be no possibility to admit him into chronic opioid program on before his surgery, that is why I prescribed him short course of tramadol 50 mg q.i.d. for 10 days. 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 The patient expressed understanding and told me that he can not take 2 weeks off until his surgery, his pain is unbearable. I explained to him that most likely his pain will be improved after the bypass surgery with Dr. Knott, however if he wants to discuss treatment of the pain after Dr. Knott's surgery, whether this treatment would be with interventional pain management such as spinal cord stimulator or it would be in chronic opioid program frame, I would be glad to see him postoperatively. Explanation was given to the patient that administration of opioids usually does not have good results in case of not controlled peripheral vascular disease. The patient is a smoker, he needs his opioid risk for opioid addiction while on chronic opioid therapy needs to be evaluated if he wants to become a member of chronic opioid program. Copy of opioid contract, opioid consent, and opioid information page were given to the patient. Medications: New tramadol 50 mg PO Q6H 10 days PRN 40 tabs 0RF pain Patient Instructions: I here by testify that I spent 45 minutes in conversation with this patient as well as evaluating his prior records and images as well as organizing this note. Coding Level of Care Code New Pt Level 4 (70603) Diagnoses Peripheral arterial disease I73.9 Complex regional pain syndrome i of right lower limb G90.521 Chronic pain syndrome G89.4
[2023-07-25 11:11] VITALS: BP 142/66; PULSE 62; RESP 16; O2SAT 96; BMI 25.3
== END 2023-07-25 11:43 | disposition home or self-care (01) ==
PROVIDERS: PCP Internal Medicine Medical Oncology; Referring Provider Surgery Vascular Surgery; Visit Provider Anesthesiology
DX: I73.9 Peripheral vascular disease, unspecified (principal); G90.521 Complex regional pain syndrome I of right lower limb; G89.4 Chronic pain syndrome
CPT/HCPCS: 99204

== ENCOUNTER → 2023-07-25 10:54 | Outpatient (BNVA) | payer MEDICARE, SELFPAY | PROVIDERS: PCP Internal Medicine Medical Oncology; Referring Provider Surgery Vascular Surgery; Visit Provider Anesthesiology | DX: G90.521 Complex regional pain syndrome I of right lower limb (principal); I73.9 Peripheral vascular disease, unspecified; G89.4 Chronic pain syndrome | CPT/HCPCS: 99202 ==

== ENCOUNTER → 2023-08-03 13:21 | Outpatient (BNV) | payer MEDICARE, SELFPAY | PROVIDERS: Admitting Provider Surgery Vascular Surgery; PCP Internal Medicine Medical Oncology; Visit Provider Internal Medicine Cardiovascular Disease | DX: I49.1 Atrial premature depolarization (principal); I44.7 Left bundle-branch block, unspecified; Z01.810 Encounter for preprocedural cardiovascular examination | CPT/HCPCS: 93010 ==

== ENCOUNTER 2023-08-03 13:39 | Outpatient (REF) | payer MEDICARE, SELFPAY ==
[2023-08-03 10:35] VITALS: PULSE 72; RESP 16; O2SAT 97
--- NOTE | 2023-08-03 15:55 | PFT_ITS ---
Indication: Preop Spirometry [FEV1 to FVC 53%; FEV1 2.28 L; FVC 4.33 L. there was a significant response to bronchodilators noted. Maximum voluntary ventilation 65% predicted] Lung Volumes [Total lung capacity 99% predicted; residual volume 143% predicted] Diffusion Capacity [DLCO 82% predicted] Comparisons [None] Interpretation [There has an obstructive ventilatory defect consistent with likely moderate COPD. There was a significant response to bronchodilators noted. Mild decrease in the maximum voluntary ventilation secondary to deconditioning and also worsening dynamic inspiratory capacity. Diffusing capacity is low normal. Clinical correlation warranted.] MTDD
== END 2023-08-03 13:40 | disposition home or self-care (01) ==
LOC: HO.RESP 13:39
PROVIDERS: PCP Internal Medicine Medical Oncology; Visit Provider Surgery Vascular Surgery
DX: J44.9 Chronic obstructive pulmonary disease, unspecified (principal)
CPT/HCPCS: 94010; 94640; 94727; 94729

== ENCOUNTER → 2023-08-03 15:55 | Outpatient (BNV) | payer MEDICARE, SELFPAY | PROVIDERS: PCP Internal Medicine Medical Oncology; Visit Provider Hospitalist | DX: J44.9 Chronic obstructive pulmonary disease, unspecified (principal) | CPT/HCPCS: 94060; 94727; 94729 ==

== ENCOUNTER 2023-08-06 13:15 | Outpatient (AMB) | payer MEDICARE, SELFPAY ==
[2023-08-06 13:27] VITALS: BP 120/62; PULSE 65; BMI 25.4
--- NOTE | 2023-08-06 13:27 | MHC.OFFVIS ---
Vital Signs 08/06/23 13:27 Height 6 ft Weight 186 lb 15.232 oz BMI 25.4 BP 120/62 Blood Pressure Location Lt brachial Position Sitting Pulse 65 Intake Visit Reasons: Preop /OUTSOLE TACKER/ Hedy/ fem pop bypass 08/12 Supplier Quality Required: No Accompanied by: Self / Same As Patient Allergies No Known Allergies Allergy (Verified 07/25/23 11:11) Medication List - Last Reconciled 08/06/23 by Khalif Ferrer MD acetaminophen (Tylenol) 975 mg PO TID aspirin (Luis Low Dose Aspirin) 81 mg PO QAM atorvastatin 10 mg PO QAM ibuprofen 400 mg PO Q8H pantoprazole 80 mg PO QAM tamsulosin 0.8 mg PO QAM tramadol 50 mg PO Q6H PRN 10 days HPI Comments Details: 63-year-old gentleman with background history of tobacco use and peripheral vascular disease for which she underwent SFA stenting few years ago. Recently he started seeing vascular surgery for claudication in the right leg and underwent angio which showed occluded SFA. He is being consider for fem-pop bypass on the right side. He is here for perioperative cardiovascular risk assessment. He said he quit smokingeek ago. He does not have any history of hypertension. He has saying he had atrial fibrillation when he got admitted to [facility] or [facility] few years ago. Said he was observed overnight. We do not have any EKGs strips are rhythm strips currently in our system showing atrial fibrillation. He has also not anticoagulation currently. He also gets chest discomfort which he describes as tightness in the chest when he does physical exertion. He is saying it happened during 1 time when he took groceries upstairs and he had to go up and down the stairs 6 times. He hiss saying on a plane surface he can walk but gets claudication quite quickly which affects his right foot and calf. EKGs showing left bundle-branch block with premature atrial complexes. [facility] Medical History (Updated 08/06/23 @ 14:02 by Khalif Ferrer MD) Arthritis BPH (benign prostatic hyperplasia) Elevated cholesterol S/P angiogram of extremity (07/18/23) Atrial fibrillation History of Palmer's esophagus Splenic vein thrombosis History of femoral angiogram GERD (gastroesophageal reflux disease) COPD (chronic obstructive pulmonary disease) Peripheral arterial disease Surgical History Hx of oral surgery Hx of tracheostomy History of esophagogastroduodenoscopy (EGD) H/O colonoscopy Social History Are you a primary patient centered care specialist to a significant other at home: No Do you presently have visiting nurse or other home services: No Patient Tobacco Use Status: Former Tobacco user Tobacco use type: Cigarette Cigarette Packs Per Day: 1 Years Smoked: 41 Review of Systems Const Denies chills, Denies fatigue, Denies fever(s), Denies frequent falls, Denies weakness, Denies weight gain and Denies weight loss ENT Denies dizziness Card Denies chest pain, Denies leg edema, Denies lightheadedness, Denies palpitations, Denies dyspnea, Denies dyspnea on exertion and Denies orthopnea Resp Denies cough, Denies dyspnea and Denies dyspnea on exertion GI Denies bloating and Denies change in bowel habits Musc Denies muscle weakness, Denies numbness and Denies tingling Neuro Denies dizziness, Denies frequent falls, Denies numbness, Denies tingling and Denies weakness Endo Denies fatigue and Denies palpitations Physical Exam Vital Signs: Last Vital Signs Pulse 65 08/06/23 13:27 BP 120/62 08/06/23 13:27 BMI result Body Mass Index 25.4 GENERAL APPEARANCE: in no acute distress, pleasant. NECK: no carotid bruit, no jugular venous distention. SKIN: no suspicious lesions, warm and dry. HEART: no murmurs, regular rate and rhythm. LUNGS: clear to auscultation bilaterally. ABDOMEN: soft, nontender. EXTREMITIES: no edema. PERIPHERAL PULSES: equal. NEUROLOGIC: No gross deficits, AAO X 3 Office Procedures EKG Details: Sinus rhythm 65 beats per minute, premature atrial complexes, normal axis, left bundle-branch block with QRS duration 140 milliseconds, QTC 453 milliseconds. [id number], Complete Assessment & Plan Assessment & Plan (1) Peripheral arterial disease: Comment: 06/18/2019 right SFA stent right popliteal plasty 07/18/2023 - diagnostic angiogram Code(s): I73.9 - Peripheral vascular disease, unspecified Category: Medical (2) Preop cardiovascular exam: Code(s): Z01.810 - Encounter for preprocedural cardiovascular examination Category: Medical Plan Pleasant 63-year-old gentleman risk assessment before fem-pop bypass on the right leg. He has history of SFA stenting in the past and tobacco use. He is complaining of some chest discomfort with activity. Given risk factors for coronary disease and high-risk vascular surgery-he needs Lexiscan to rule out any obstructive coronary artery disease. Given left bundle-branch block-we will also do echocardiogram to rule out any cardiomyopathy continue aspirin 81 mg daily. Recommend increasing atorvastatin to 20 mg daily. He is reporting history of atrial fibrillation but there is no rhythm strip currently present in our system to confirm it. He has been getting some palpitations at home. He will be monitored in the hospital for vascular surgery and there is risk of developing atrial fibrillation in the perioperative period. If he does not develop atrial fibrillation while he is in-house then we can do cardiac event monitor him. If atrial fibrillation then anticoagulation is recommended given his CHADS-VASc score of 2 and significant vascular disease. I would favor using Xarelto in that case. Follow-up with us in few months. Once his testing is done then we can risk stratify him. Thank you for allowing me to participate in the care of your patient. Please feel free to contact me if you have any questions. Orders: Orders CA echo transthoracic complete Today Z01.810 - Encounter for preprocedural cardiovascular examination CA lexiscan stress w gosia Today Z01.810 - Encounter for preprocedural cardiovascular examination Coding Level of Care Code New Pt Level 5 (65618) Diagnoses Peripheral arterial disease I73.9 Preop cardiovascular exam Z01.810 CPT Codes EKG - CPT: 06900-[id number], Complete ([id number])
== END 2023-08-06 14:10 | disposition home or self-care (01) ==
PROVIDERS: PCP Internal Medicine Medical Oncology; Visit Provider Internal Medicine Cardiovascular Disease
DX: I73.9 Peripheral vascular disease, unspecified (principal); Z95.820 Peripheral vascular angioplasty status with implants and grafts; Z01.810 Encounter for preprocedural cardiovascular examination; I49.1 Atrial premature depolarization
CPT/HCPCS: 93010; 99205

== ENCOUNTER → 2023-08-06 13:15 | Outpatient (BNVA) | payer MEDICARE, SELFPAY | PROVIDERS: PCP Internal Medicine Medical Oncology; Visit Provider Internal Medicine Cardiovascular Disease | DX: Z01.810 Encounter for preprocedural cardiovascular examination (principal); I73.9 Peripheral vascular disease, unspecified; I49.1 Atrial premature depolarization; I44.7 Left bundle-branch block, unspecified | CPT/HCPCS: 93005; 99202 ==

== ENCOUNTER → 2023-08-07 08:56 | Outpatient (REF) | payer MEDICARE, SELFPAY ==
--- NOTE | 2023-08-07 09:00 | CA_ITS ---
Transthoracic Echocardiogram Patient (Last, First, Middle): Zan Encinas J Gender: Male Date of : 1960 Age: 63 Procedure Date: 08/07/2023 Procedure Type: Transthoracic Echocardiogram Location: OP Height: 182.88 cm Weight: 83.92 kg BSA: 2.06 m2 Heart Rate: bpm BP: 140 / 85 mmHg Electrical Instrument Maker: CAROLINA Referring MD: Khalif Ferrer MD Hydraulic Rubbish Compactor Mechanic: Khalif Ferrer MD Symptoms: Z01.810 - Encounter for preprocedural cardiovascular examination Study Quality: Adequate Conclusions: - Normal left ventricular size, thickness, and systolic function. The visually estimated ejection fraction is between 55-60%. - Normal right ventricular cavity size and systolic function. - There is mild dilatation of the ascending aorta measuring 3.40 cm. Findings Left Ventricle Normal left ventricular size, thickness, and systolic function. The visually estimated ejection fraction is between 55-60%. There is no evidence of regional wall motion abnormalities. There is paradoxical septal motion consistent with a left bundle branch block. Diastolic function is indeterminate on the basis of available data. Right Ventricle Normal right ventricular cavity size and systolic function. Atria The left atrium is normal in size. The right atrium is likely dilated. Aortic Valve There is a normal trileaflet aortic valve. There is mild calcification of the aortic valve. There is no aortic valve stenosis. There is no aortic valve regurgitation. Mitral Valve There is mild mitral annular calcification. There is no mitral valve regurgitation. There is no mitral valve stenosis. Pulmonic Valve The pulmonic valve is likely normal. Tricuspid Valve Normal tricuspid valve structure. There is trace tricuspid valve regurgitation. Normal right atrial pressure. There is no evidence of pulmonary hypertension. Great Vessels There is mild dilatation of the ascending aorta measuring 3.40 cm. Venous The inferior vena cava is normal in size and collapses greater than 50% with inspiration. Pericardium/Pleural There is no evidence of pericardial effusion. Prior Study Comparison No prior study available for comparison. Measurements 2D Linear Measurements IVSd: 1.05 0.6-0.9/0.6-1.0 cm LVIDd: 4.63 3.9-5.3/4.2-5.9 cm LVIDd Index: 2.25 2.4-3.2/2.2-3.1 cm/m2 LVIDs: 3.11 2.0-3.6 cm LVPWd: 0.80 0.7-1.1 cm LA Diam: 3.40 2.7-3.8/3.0-4.0 cm LAIDs Index: 1.65 1.5-2.3 cm/m2 LV Mass: 179.24 67-162/88-224 g LV Mass Index: 87.01 43-95/49-115 g/m2 LVOT Diam: 2.30 3.0+(-)1.3 cm 2D Systolic Function EF 4C: 50.50 >55% EF 2C: 63.10 >55% EF BiP: 60.70 >55% Mitral Valve MV Pk E: 0.78 MV PK A: 0.88 MV Decel Time: 249.00 E/A: 0.90 E'Lateral: 8.31 E'Medial: 6.72 E/E' Med: 11.60 E/E' Lat: 9.40 PHT: 73.00 MVA PHT: 3.01 Decel Piute: 3.18 Aortic Valve AoV Pk Gibran: 1.84 AoV Mn Gibran: 1.10 AoV VTI: 0.37 AoV Pk Grad: 14.00 Aov Mn Grad: 6.00 SHIVA Cont.VTI: 2.97 LVOT LVOT Pk Gibran: 1.29 LVOT Mn Gibran: 0.81 LVOT VTI: 0.26 LVOT Pk Grad: 7.00 LVOT Mn Grad: 3.00 LVOT Diam: 2.30 LVOT Area: 4.15 Diastolic Function MV Pk E: 0.78 MV Pk A: 0.88 E/A: 0.90 E'Medial: 6.72 E/E' Med: 11.60 E' Laterial: 8.31 E/E' Lat: 9.40 Right Ventricle TAPSE (mm): 25.20 TVS' Gibran: 12.80 Tricuspid Valve TR Pk Gibran: 1.97 TR Pk Grad: 16.00 RA Press: 3.00 RVSP: 19.00 Great Vessels Aorta Sinus of Valsalva: 3.37 2.0-3.[address] [place]: 2.65 1.7-3.4 cm Ao Asc: 3.40 2.1-3.4 cm Updated in Other Vendor System with Status of Final Khalif Ferrer MD electronically signed on 08/08/2023 1:25:26 PM with status of Final
== END ==
LOC: HO.CARD 08:56
PROVIDERS: PCP Internal Medicine Medical Oncology; Visit Provider Internal Medicine Cardiovascular Disease
DX: Z01.810 Encounter for preprocedural cardiovascular examination (principal); J44.9 Chronic obstructive pulmonary disease, unspecified; Z72.0 Tobacco use
CPT/HCPCS: 93306; 94640; 99202

== ENCOUNTER → 2023-08-07 09:00 | Outpatient (BNV) | payer MEDICARE, SELFPAY | PROVIDERS: PCP Internal Medicine Medical Oncology; Visit Provider Internal Medicine Cardiovascular Disease | DX: I34.81 Nonrheumatic mitral (valve) annulus calcification (principal); I35.8 Other nonrheumatic aortic valve disorders | CPT/HCPCS: 93306 ==

== ENCOUNTER 2023-08-07 10:57 | Outpatient (AMB) | payer MEDICARE, SELFPAY ==
[2023-08-07 11:03] VITALS: BP 120/78; PULSE 55; O2SAT 97; BMI 25.5
--- NOTE | 2023-08-07 11:03 | A.OFFVIS_ITS ---
Vital Signs 08/07/23 11:03 Height 6 ft Weight 188 lb 6 oz BMI 25.5 BP 120/78 Blood Pressure Location Lt brachial Position Sitting Pulse 55 Pulse Source Pulse Oximeter Pulse Oximetry (%) 97 Oxygen Delivery Method Room Air Intake Visit Reasons: Pre Op/Femoral Popliteal Bypass Graft (Dr. Knott) Allergies No Known Allergies Allergy (Verified 08/07/23 11:07) HPI HPI Pre Op/Femoral Popliteal Bypass Graft (Dr. Knott): Details: Zan is a pleasant 63-year-old male, former smoker with 75 pack year history, recently quit with underlying COPD, peripheral vascular disease and atrial fibrillation on ASA 81. He was referred by Dr. Knott for preoperative pulmonary evaluation for upcoming femoral popliteal bypass graft on the right. He was previously managed on Spiriva with moderate control of symptoms however due to insurance coverage had discontinued. He is not currently on any maintenance in halers. He reports occasional productive cough with clear to white sputum, wheezing and dyspnea on exertion. He reports history of asthma diagnosis as an adult, number requiring intubations. He has significant smoking history and recently quit the last week attempting to use 14 mg nicotine patches and vaping nicotine p.r.n. cravings. He is requesting 21 mg patches as he was previously smoking 1-1 and half packs per day. He denies any seasonal allergies. He denies any occupational exposures. He reports son with asthma and grandmother with some type of lung condition, unknown. He denies any recent respiratory infections, he denies any evaluations through urgent care or recent hospitalizations. He denies any need for supplemental oxygen. [facility] Medical History (Updated 08/08/23 @ 12:57 by Aleksandra Archuleta NP) Arthritis BPH (benign prostatic hyperplasia) Elevated cholesterol S/P angiogram of extremity (07/18/23) Atrial fibrillation History of Palmer's esophagus Splenic vein thrombosis History of femoral angiogram GERD (gastroesophageal reflux disease) COPD (chronic obstructive pulmonary disease) Peripheral arterial disease Surgical History Hx of oral surgery Hx of tracheostomy History of esophagogastroduodenoscopy (EGD) H/O colonoscopy Social History Are you a primary care management coordinator to a significant other at home: No Do you presently have visiting nurse or other home services: No Patient Tobacco Use Status: Former Tobacco user Tobacco use type: Cigarette Cigarette Packs Per Day: 1 Years Smoked: 41 Review of Systems Const Denies chills, Denies excessive sweating, Denies fever(s), Denies headache(s) and Denies night sweats Eyes Denies dry eyes, Denies irritation and Denies itchy eyes ENT Reports Normal hearing present, Denies headache(s), Denies nasal congestion, Denies nasal discharge, Denies post nasal drip and Denies sore throat Card Denies chest pain, Denies chest pain at rest, Denies chest pain with activity, Denies claudication, Denies leg edema, Denies orthopnea and Denies paroxysmal nocturnal dyspnea Resp Denies chest congestion, Denies excessive phlegm production, Denies pain on inspiration, Denies pain with cough and Denies stridor Musc Denies myalgias Neuro Reports Normal hearing present and Denies headache(s) Endo Denies excessive sweating Matt/Lymph Denies lymphadenopathy Aller/Immun Denies itchy eyes and Denies seasonal rhinorrhea Physical Exam Vital Signs: Last Vital Signs Pulse 55 08/07/23 11:03 BP 120/78 08/07/23 11:03 Pulse Ox 97 08/07/23 11:03 Oxygen Delivery Method Room Air 08/07/23 11:03 BMI result Body Mass Index 25.5 Const General: cooperative, healthy appearing, comfortable, no acute distress, well developed and alert Nutritional Appearance: obese Orientation/consciousness: patient oriented x3 Limitations: no limitations HEENT Head: Yes normal to inspection, Yes normocephalic and Yes atraumatic Ears: hearing grossly normal bilaterally and external ears normal Eyes General: appearance normal, both eyes and all related structures Eyelids: Yes eyelids normal Sclerae: sclerae normal EOM: EOMs intact bilaterally Neck Neck: Yes normal visual inspection and Yes no lymphadenopathy Lymphatic: no lymphadenopathy noted Chest Chest palpation & inspection: normal inspection of the chest Resp Other: Significantly diminished lung sounds and post exhalation cough, mildly improved with DuoNeb. Effort & Inspection: normal respiratory effort, able to speak in complete sentences, no audible wheezes, no cough, no stridor, not tachypneic, no tripod positioning and no use of accessory muscles Cardio Jugular venous distension: no JVD Rate: regular rate Rhythm: regular rhythm Skin Other: warm, dry General skin exam: no rashes or lesions noted Neuro General: patient oriented x3 Cranial nerves: Yes Normal hearing present Cognition (Neuro): normal cognition Gait exam (Neuro): Normal gait present Extrem General: Yes normal to inspection, Yes capillary refill normal, Yes no clubbing, cyanosis or edema and Yes no pedal edema Psych Appearance: grossly normal and well kempt Speech and movement: Normal speech and movement present and Clear speech present Affect: normal affect Attitude: cooperative Thought process: Normal thought process present Thought content: Normal thought content present Insight: Good insight present (Psych) Judgement: Good judgement present (Psych) Office Procedures Nebulizer Treatment Nebulizer Treatment [id number] RX initial, or Nebulizer Subsequent Treatment Office Meds ipratropium 0.5 mg-albuterol 3 mg (2.5 mg base)/3 mL nebulization soln Performing Provider: Aleksandra Archuleta NP Performing Location: [facility] [place] [facility] Administered by: Jessica Samuel LPN on 08/07/23 11:48 Dose Route Admin Location Dispensed Lot Number Expiration Date [facility] Safety Glass Installer 3 mL inhalation 3 mL [id number] 12/26/24 45286-562-16 [employer] Assessment & Plan Assessment & Plan (1) COPD (chronic obstructive pulmonary disease): Code(s): J44.9 - Chronic obstructive pulmonary disease, unspecified Category: Medical (2) Nicotine dependence, cigarettes, uncomplicated: Code(s): F17.210 - Nicotine dependence, cigarettes, uncomplicated Category: Medical (3) Encounter for preoperative pulmonary examination: Code(s): Z01.811 - Encounter for preprocedural respiratory examination Category: Medical Plan Zan presents for preoperative pulmonary evaluation for upcoming femoral popliteal bypass on the right with Dr. Knott next week. Reviewed PFT which revealed an obstructive ventilatory defect consistent with moderate COPD. There was a significant response to bronchodilators noted. Mild decrease in the maximum voluntary ventilation secondary to deconditioning and also worsening dynamic inspiratory capacity. Diffusing capacity is low normal. On exam patient with significantly diminished lung sounds and post exhalation cough, minimally improved with DuoNeb. Will send in prednisone as well start patient on ICS/LABA. Also send patient for a chest x-ray as there has been no recent imaging. In the future would like to obtain chest CT given significant smoking history. Patient denies any recent respiratory infections. He does not require any supplemental oxygen. Will send in nicotine patches starting at 21 mg for smoking cessation. At this time patient would be low to intermediate risk for any perioperative pulmonary complications for proposed femoral popliteal bypass. Consider bronchodilators during the perioperative. All questions were answered and patient is in agreement of plan. Will follow-up in 8-10 weeks to assess response to inhaler as well as chest CT. Orders: Orders XR chest 2V 08/07/23 F17.210 - Nicotine dependence, cigarettes, uncomplicated CT chest wo IV con Today - Nicotine dependence, cigarettes, uncomplicated AMB Nebulizer Treatment 08/07/23 J44.9 - Chronic obstructive pulmonary disease, unspecified Medications: New nicotine apply 1-21 mg NICOTINE PATCH daily for 28 days; follow with 1-14 mg PATCH daily for 14 days, then 1-7mg PATCH daily for 14 days transdermal 56 patches 0RF albuterol sulfate 90 mcg/actuation 2 puffs inhalation Q4-6H PRN 1 ea 6RF shortness of breath or wheezing fluticasone furoate-vilanterol 200-25 mcg/dose (Breo Ellipta) 1 inh inhalation DAILY 60 ea 6RF prednisone 40 mg (2 x 20 mg) PO DAILY 10 tabs 0RF Coding Level of Care Code New Pt Level 4 (32135) Diagnoses COPD (chronic obstructive pulmonary disease) J44.9 Nicotine dependence, cigarettes, uncomplicated F1 Encounter for preoperative pulmonary examination Z01.811 CPT Codes Nebulizer Treatment - Nebulizer Treatment, initial or subsequent: 69425- Nebulizer/MDI RX initial, or Nebulizer Subsequent Treatment ([id number])
== END 2023-08-07 12:08 | disposition home or self-care (01) ==
PROVIDERS: PCP Internal Medicine Medical Oncology; Referring Provider Surgery Vascular Surgery; Visit Provider Nurse Practitioner Family
DX: J44.9 Chronic obstructive pulmonary disease, unspecified (principal); F17.210 Nicotine dependence, cigarettes, uncomplicated; Z01.811 Encounter for preprocedural respiratory examination
CPT/HCPCS: 99204

== ENCOUNTER 2023-08-07 12:35 | Outpatient (REF) | payer MEDICARE, SELFPAY ==
--- NOTE | ~2023-08-07 | XR_ITS ---
EXAMINATION: XR CHEST CLINICAL INFORMATION: Nicotine, cigarettes uncomplicated. COMPARISON: October 15, 2018 TECHNIQUE: 2 views of the chest were obtained. FINDINGS: The lungs are well inflated. There is no gross pneumothorax. Heart size is normal. No pleural effusion. No new focal consolidation to suggest pneumonia. Degenerative changes in the thoracic spine. XR/XR chest 2V IMPRESSION: No evidence of pneumonia. LDCT should be considered for this patient with history of tobacco abuse.
== END 2023-08-07 12:36 | disposition home or self-care (01) ==
LOC: HO.XRAY 12:35
PROVIDERS: PCP Internal Medicine Medical Oncology; Visit Provider Nurse Practitioner Family
DX: F17.210 Nicotine dependence, cigarettes, uncomplicated (principal)
CPT/HCPCS: 71046

== ENCOUNTER → 2023-08-09 11:09 | Outpatient (REF) | payer MEDICARE, SELFPAY ==
--- NOTE | ~2023-08-09 | NM_ITS ---
Lexiscan Myocardial perfusion study Indication: Preoperative cardiovascular evaluation Technique: The patient was brought in for a Lexiscan perfusion study on 08/10/2023 and was injected 0.4 mg of Lexiscan intravenously. Within a minute of this injection 30 mCi of sestamibi was given intravenously. Images were obtained using the SPECT gamma camera interlaced with the gating device. Images were obtained in supine position. Resting perfusion study was performed on 08/09/2023. Patient was administered 30mCi of sestamibi intravenously at rest. Images were then obtained in supine position. Images were processed with the software and compared side to side in short axis, horizontal long axis and vertical long axis views. Total DLP 92mGy-cm. Findings: Raw acquisition reviewed. Arms by the patient's side. The stress perfusion study showed diminished tracer uptake in the distal part of anterior wall and adjacent apex. No major change with CT attenuation correction The gated study shows low normal LV systolic function with calculated LVEF of 52%. LV cavity is normal in size. The gated study shows diminished thickening/contractility in the apical part of anterior wall. Resting study shows diminished tracer uptake along the anterior wall, septum as well as parts of inferior wall. There is overall improved tracer uptake with CT attenuation correction suggestive of components of attenuation artifact. Gating at rest reveals possible diminished contractility in the distal anterior wall with LVEF of 52%. The findings are consistent with fixed distal anterior wall perfusion defect. NM/NM gosia perf SPECT rest & str Impression: 1. Myocardial perfusion imaging study shows fixed distal anterior defect; possible prior infarct. Cannot exclude findings of the left bundle branch block. 2. Gated LVEF 52% during stress and rest. 3. Transient ischemic dilatation not present. EKG component of the test reported separately.
--- NOTE | 2023-08-09 11:12 | CA_ITS ---
Acquisition Time: 2023-08-10 10:21:57 Total Exercise Time: 00:02:00 Test Indications: cp, afib, lbbb Medications: see h Protocol: LEXISCAN Max HR: 094 BPM 60% of Pred: 155 BPM Max BP: 122/074 mmHG Max Work Load: 1.0 METS Pharmacological stress test with Lexiscan injection while sitting, with1/10 chest tightness at baseline no change, without arrhythmias, with normotensive response to injection, with nondiagnositic EKGs. Nuclear images pending. Test reviewed with Dr Trejo. Referred By: Khalif Ferrer Overread By: Margie Cortes
== END ==
LOC: HO.CARD 11:09
PROVIDERS: PCP Internal Medicine Medical Oncology; Visit Provider Internal Medicine Cardiovascular Disease
DX: Z01.810 Encounter for preprocedural cardiovascular examination (principal)
CPT/HCPCS: 78452; 93017; A9500; J0280; J2785

== ENCOUNTER → 2023-08-09 11:12 | Outpatient (BNV) | payer MEDICARE, SELFPAY | PROVIDERS: PCP Internal Medicine Medical Oncology; Visit Provider Nurse Practitioner | DX: R07.9 Chest pain, unspecified (principal) | CPT/HCPCS: 78452; 93016; 93018 ==

== ENCOUNTER 2023-08-10 12:45 | Outpatient (REF) | payer MEDICARE, SELFPAY ==
--- NOTE | ~2023-08-10 | US_ITS ---
EXAMINATION: US LOWER EXTREMITY VEIN MAPPING, RIGHT CLINICAL INDICATION: Peripheral vascular disease COMPARISON: None. TECHNIQUE: Color flow triplex imaging and compression Doppler was performed to evaluate the superficial systems of the right lower extremity. FINDINGS: GREAT SAPHENOUS VEIN: Saphenofemoral Junction: 0.5 cm; depth: 1.5cm Proximal Thigh: 0.3 cm; depth: 1.0cm Mid Thigh: 0.2 cm; depth: 1.0cm Above Knee: 0.3 cm; depth: 1.1cm Duplicated GSV above knee: 0.1 cm; depth: 1.1cm At Knee: 0.3 cm; depth: 0.7cm Below Knee: 0.2 cm; depth: 0.5cm Mid Calf: 0.1 cm; depth: 0.6cm Ankle: 0.2 cm; depth: 0.8cm SMALL SAPHENOUS VEIN: Saphenopopliteal Junction: 0.3 cm; depth: 1.5cm Proximal: 0.2 cm; depth 0.7cm Mid: 0.3cm; depth 0.4cm Distal: 0.2 cm; depth 0.4cm US/US venous duplex LE RT IMPRESSION: Right lower extremity venous mapping. 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
== END 2023-08-10 12:46 | disposition home or self-care (01) ==
LOC: HO.US 12:45
PROVIDERS: PCP Internal Medicine Medical Oncology; Visit Provider Surgery Vascular Surgery
DX: I83.11 Varicose veins of right lower extremity with inflammation (principal)
CPT/HCPCS: 93971; J0280

== ENCOUNTER 2023-08-13 06:16 | Inpatient (IN) | payer MEDICARE, SELFPAY ==
--- NOTE | 2023-08-03 | ECG_ITS ---
Test Reason : PRE OP Blood Pressure : / mmHG Vent. Rate : 066 BPM Atrial Rate : 066 BPM P-R Int : 150 ms QRS Dur : 134 ms QT Int : 436 ms P-R-T Axes : 057 -43 097 degrees QTc Int : 457 ms Sinus rhythm with Premature atrial complexes Left axis deviation Left bundle branch block Abnormal ECG No previous ECGs available Referred By: Gill Shepherd Electronically Signed By:VINH SANCHEZ MD
[2023-08-03 12:21] VITALS: BP 133/82; PULSE 72; RESP 20; O2SAT 97; BMI 25.4
--- NOTE | 2023-08-03 12:35 | P.CONAN_ITS ---
HPI - Anesthesia Eval Consult details Narrative: 63yo M for Right Femoral Popliteal Bypass Graft Pending cardiac clear Pending pulmo clear (PFTs sched No recent illness No CP. Some HERNANDEZ. Remote hx of trach s/p infected tooth extraction ~1985 1 x hx afib. Vague hx GERD: ppi controls Smoker/COPD: quit 08/01/23, no inhalers PMFSH Active Problems Active Problems: All Active Problems Chronic pain syndrome (Acute) Complex regional pain syndrome i of right lower limb (Acute) Peripheral arterial disease (Acute) Atrial fibrillation (Acute) Past Medical History Medical History (Updated 08/14/23 @ 09:32 by Sawyer Case MD) Arthritis BPH (benign prostatic hyperplasia) Elevated cholesterol S/P angiogram of extremity (07/18/23) Atrial fibrillation History of Palmer's esophagus Splenic vein thrombosis History of femoral angiogram GERD (gastroesophageal reflux disease) COPD (chronic obstructive pulmonary disease) Peripheral arterial disease Family History Family history of problems with anesthesia: No Surgical History Surgical History (Updated 08/13/23 @ 14:23 by Sawyer Case MD) Hx of oral surgery Hx of tracheostomy History of esophagogastroduodenoscopy (EGD) H/O colonoscopy History of Problems with Anesthesia: No Social History Social History Household Members: None Housing: Apartment Are you a primary summer child caregiver to a significant other at home: No Do you presently have visiting nurse or other home services: No Patient Tobacco Use Status: Former Tobacco user Tobacco use type: Cigarette Cigarette Packs Per Day: 1 Cigarettes Per Day: 20.0 Years Smoked: 41 Smoked in Last 30 Days: Yes e-Cigarette/Vaping Use: Former Use Frequency of e-Cigarette/Vaping Use: Occasional Patient Interested in Nicotine Replacement: Yes Patient Given Instructions on How to Stop Smoking: No (Patient quit) Use of substances other than those prescribed or required for medical reasons: Yes Substance Use Type: Marijuana Substance Use Type Other:: smokes marijuana occasionally Substance Use Frequency: Occasionally Last Used Substance: Weeks (ago) Currently Displaying Signs/Symptoms of Drug Intoxication Withdrawal: No Have you been hit, kicked, punched, or otherwise hurt by someone within the past year? If so, by whom?: No Do you feel safe in your current relationship?: Yes Spiritism Healthcare Practices: Muslim Are you DNR?: No Advance Directives: No (son is primary contact) Advance Directives Information Provided: Yes Advance Directives on File: No Recently lost weight without trying: No Eating poorly because of decreased appetite: No Nutrition Risks: No Nutritional Risk Poor oral hygiene: No (edentulous) service: No Meds Allergies Allergy/AdvReac Type Severity Reaction Status Date / Time No Known Allergies Allergy Verified 08/07/23 11:07 Home Medications ?Medication ?Instructions ?Recorded ?Confirmed ?Last Taken ?Type aspirin 81 mg tablet,delayed 81 mg PO DAILY 01/12/20 08/14/23 08/12/23 History release (Luis Low Dose Aspirin) pantoprazole 40 mg tablet,delayed 80 mg PO DAILY@0630 01/12/20 08/14/23 08/13/23 History release tamsulosin 0.4 mg capsule 0.8 mg PO DAILY 01/12/20 08/14/23 08/13/23 History atorvastatin 10 mg tablet 10 mg PO DAILY 05/04/20 08/14/23 08/13/23 History acetaminophen 325 mg tablet 975 mg PO TID PRN Pain 08/03/23 08/14/23 Unknown History (Tylenol) ibuprofen 200 mg tablet 400 mg PO Q8H PRN Pain 08/03/23 08/13/23 08/06/23 History ascorbic acid (vitamin C) 500 mg 500 mg PO DAILY 08/14/23 08/14/23 08/12/23 History tablet (Vitamin C) vitamin E 268 mg (400 unit) capsule 268 mg PO DAILY 08/14/23 08/14/23 08/12/23 History Exam Height,Weight and Vital Signs: Height 6 ft Weight 84.822 kg Last Vital Signs Pulse 72 08/03/23 12:21 Resp 20 08/03/23 12:21 BP 133/82 08/03/23 12:21 Pulse Ox 97 08/03/23 12:21 Airway Mallampati Class: III TM Dist: >3cm Neck ROM: Full Heart: RRR Lungs: Faint expiratory wheeze throughout Assessment and Plan Assessment Anesthesia Assessment: Anesthesia Plan Discussed, Smoking Cess. Discussed and PAT Visit Final Anesthetic Review Family History of Problems with Anesthesia: No History of Problems with Anesthesia: No
[2023-08-13] VITALS (17 sets, daily range): BP systolic 99–135; BP diastolic 46–79; PULSE 63–84; RESP 12–23; TEMP 36.3–37.1; O2SAT 93–98
--- OUTSIDE RECORDS SUMMARY | 2023-08-13 06:26 | XMS_ITS | Patient Health Record ---
Author Organization Quinton Callahan III, MD Address [address] [place] [address] [place] [address] Care Team Providers Care Body Technician Name Role Phone Quinton Callahan Primary Care Provider [phone] ALLERGIES Allergen (clinical drug ingredient) Drug/Non Drug Allergy documented on EMR Reaction Allergy Type Onset Date Status No Known Drug Allergy Unknown Drug Allergy Active RESULTS Component Value Reference Range Notes Lipid Panel Reviewed date:04/15/2023 10:17:38 AM Interpretation: Performing Lab:[facility], [address] [place] [phone] Notes/Report: Triglycerides 72 <150 mg/dL Desirable Triglyceride: less than 150 mg/dL Borderline High Triglyceride 150-199 mg/dL High Triglyceride: 200-499 mg/dL Very High Triglyceride: greater than or equal to 5OO mg/dL Cholesterol 148 <200 mg/dL Desirable Cholesterol: less than 200 mg/dL Borderline High Cholesterol: 200-239 mg/dL High Cholesterol: greater than 239 mg/dL LDL Cholesterol Calculated 77 <100 mg/dL Desirable LDL: less than 100 mg/dL Near Optimal/Above Optimal LDL: 110-129 mg/dL Borderline High LDL: 130-159 mg/dL High LDL: 160-189 mg/dL Very High LDL: greater than or equal to 190 mg/dL HDL Cholesterol 57 >40 mg/dL Desirable HDL: greater than 40 mg/dL Note: This HDL assay may give artificially low results in patients with liver disease. Complete Blood Count Auto Di ff Reviewed date:04/15/2023 10:17:38 AM Interpretation: Performing Lab:[facility], [address] [place] [phone] Notes/Report: White Blood Count 5.9 4.8-10.8 X10*3/uL Red Blood Count 5.38 4.60-5.80 X10*6/uL Hemoglobin 17.1 14.0-18.0 g/dl Hematocrit 51.2 42.0-52.0 % Mean Corpuscular Volume 95.2 80.0-98.0 fL Mean Corpuscular Hemoglobin 31.8 27.0-33.0 pg Mean Corpuscular HGB Conc 33.4 31.0-36.0 g/dl Red Cell Distribution Width 12.1 11.0-16.0 % Platelet Count 299 160-400 X10*3/uL Mean Platelet Volume 9.6 9.4-12.4 fL Neutrophils Percent Auto 60.4 45-73 % Imm Gran Pct Auto 0.3 0.0-0.4 % Lymphocytes Percent Auto 26.3 20-40 % Monocytes Percent Auto 9.9 2-11 % Eosinophils Percent Auto 2.2 0-4 % Basophils Percent Auto 0.9 0-2 % NRBC Pct Auto 0.0 0.0-0.2 /100WBC Neutrophils Absolute Auto 3.5 2.0-8.3 x10*3/u L Imm Gran Abs Auto 0.02 0.00-0.03 X10*3/uL Lymphocytes Absolute Auto 1.5 1.2-4.9 X10*3/u L Monocytes Absolute Auto 0.6 0.1-1.2 X10*3/uL Eosinophils Absolute Auto 0.1 0.0-0.4 X10*3/u L Basophils Absolute Auto 0.1 0.0-0.2 X10*3/uL NRBC Abs Auto 0.000 0.0-0.012 X10*3/uL Comprehensive [place]. Panel Fa st Reviewed date:04/15/2023 10:17:38 AM Interpretation: Performing Lab:[facility], [address] [place] [phone] Notes/Report: Sodium 140 135-145 mmol/L Potassium 4.3 3.3-5.1 mmol/L Chloride 105 96-108 mmol/L Carbon Dioxide 28 22-29 mmol/L Anion Gap 11 12-20 Blood Urea Nitrogen 16 9-16 mg/dL Creatinine 1.00 0.5-1.4 mg/dL Estimated Glomerular Filt Rate > 60 NOTE: For -Latvian individuals, multiply the result by 1.210. Chronic Kidney Disease: Estimated GFR < 60 mL/min/1.73m2 Severe Kidney Disease: Estimated GFR < 15 mL/min/1.73m2 Glucose Fasting 91 60-99 mg/dL Calcium 9.3 8.4-10.2 mg/dL Bilirubin Total 0.8 0.0-1.0 mg/dL Aspartate Amino Transferase 22 5-37 U/L Alanine Aminotransferase 15 0-40 U/L Total Protein 6.4 6.5-8.0 g/dL Albumin Level 3.8 3.5-5.0 g/dL Alkaline Phosphatase 61 39-117 U/L Prostate Specific Antigen Reviewed date:04/15/2023 10:17:38 AM Interpretation: Performing Lab:[facility], [address] [place] [phone] Notes/Report: Prostate Specific Antigen 1.08 <0.05-4.0 ng/mL PSA methodology: Mehta Alinity i Chemiluminescent Microparticle Immunoassay (CMIA) XR lumbar spine 4V min Reviewed date:04/15/2023 10:17:38 AM Interpretation: Performing Lab: Notes/Report: [address] [address] XRay Report Signed Patient: Zan Encinas MR#: [id number] : 1960 Acct:[id number] Age/Sex: 63 / M ADM Date: 04/11/23 Loc: [facility] Attending Dr: Quinton Callahan MD Ordering Physician: Quinton Callahan MD Date of Service: 04/11/23 Procedure(s): XR lumbar spine 4V min Accession Number(s): [id number] cc: Quinton Callahan MD EXAMINATION: XR LUMBOSACRAL SPINE WITH OBLIQUES CLINICAL INFORMATION: Right-sided low back pain with right-sided sciatica COMPARISON: None available. TECHNIQUE: 6 views of the lumbosacral spine FINDINGS: Overlying bowel gas limits evaluation. No acute visible fracture or dislocation. Mild multilevel degenerative changes with disc space narrowing, osteophyte formation, and facet arthropathy. Vertebral body heights and disc spaces are maintained. Posterior elements are intact. Paraspinal soft tissues are unremarkable. XR/XR lumbar spine 4V min IMPRESSION: 1. Overlying bowel gas limits evaluation. 2. No acute visible fracture or dislocation. 3. Mild multilevel degenerative changes. Dictated By: Demetri Montanez MD Signed By: <Electronically signed by Demetri Montanez MD in OV> 04/11/23 1527 DD/ 0942 TD/TT: Risk Manager: US VANCE complete Reviewed date:05/12/2023 06:32:45 AM Interpretation: Performing Lab: Notes/Report: [address] [address] Ultrasound Report Signed Patient: Zan Encinas MR#: [id number] : 1960 Acct:[id number] Age/Sex: 63 / M ADM Date: 05/10/23 Loc: .US Attending Dr: Bimal Knott MD Ordering Physician: Bimal Knott MD Date of Service: 05/10/23 Procedure(s): US VANCE complete Accession Number(s): [id number] cc: Quinton Callahan MD; Bimal Knott MD EXAMINATION: Noninvasive assessment of the bilateral lower extremities with ARTERIAL DUPLEX and ANKLE BRACHIAL INDICES (ABIs). CLINICAL INFORMATION: Peripheral vascular disease with claudication TECHNIQUE: Duplex Doppler techniques with waveform analysis and measurement of velocities in the bilateral common femoral, profunda femoris, superficial femoral, popliteal and tibial arteries were performed. Additionally, ankle pulse volume recordings, ankle pressure measurements and ankle brachial indices were obtained of the lower extremity arterial system bilaterally. The study was performed only at rest. COMPARISON: 03/24/2020 FINDINGS: DIRECT DUPLEX DOPPLER FINDINGS: RIGHT LEG: Common femoral artery: 145 cm/s, phasicity: Triphasic. Mild calcified plaque Profunda femoris artery: 130 cm/s, phasicity: Triphasic Superficial femoral artery (proximal): 133 cm/s, phasicity: Triphasic. Mild noncalcified plaque Superficial femoral artery (mid): 73.6 cm/s, phasicity: Monophasic Superficial femoral artery (distal): Underlying vascular stent with occlusion at the proximal margin. Collateral vessels arising from the distal superficial femoral artery. Popliteal artery: Proximal segment is occluded. Reconstituted flow in the mid to distal segment. 29.0 Cm/s, phasicity: Monophasic Posterior tibial artery: Proximal and mid segments are occluded with reconstituted flow in the distal segment. Velocity measures 15.8 cm/s, phasicity: Monophasic Peroneal artery: 10.9 cm/s, phasicity: Monophasic Anterior tibial artery: 22.5 cm/s, phasicity: Monophasic Dorsalis pedis artery: Occluded LEFT LEG: Common femoral artery: 117 cm/s, phasicity: Triphasic Profunda femoris artery: 163 cm/s, phasicity: Triphasic Superficial femoral artery (proximal): 148 cm/s, phasicity: Triphasic Superficial femoral artery (mid): 118 cm/s, phasicity: Triphasic Superficial femoral artery (distal): 126 cm/s, phasicity: Triphasic Popliteal artery: 96 cm/s, phasicity: Triphasic Posterior tibial artery: 17.3 cm/s, phasicity: Monophasic within the proximal segment. Mid and distal segments are occluded Peroneal artery: 73.1 cm/s, phasicity: Biphasic Anterior tibial artery: 70.8 cm/s, phasicity: Triphasic Dorsalis pedis artery: 48.4 cm/s, phasicity: Monophasic ANKLE-BRACHIAL INDEX: Right: Nondiagnostic? Left: Nondiagnostic ANKLE PRESSURES: Right: PT inaudible, DP inaudible Left: PT?inaudible, DP?inaudible ANKLE PVR WAVEFORMS: Right: Abnormal Left: Abnormal US/US VANCE complete IMPRESSION: Right leg: Stent in the distal superficial femoral artery is occluded with occlusion extending through the proximal popliteal artery. Reconstituted flow in the distal popliteal artery. Markedly dampened arterial waveforms in the below-knee runoff vessels with areas of occlusive changes in the posterior tibial and dorsalis pedis artery Left leg: Patent arterial flow within the left lower extremity except for occlusive changes in the mid to distal posterior tibial artery. This critical result was discussed with Dr. Payton at 1114 on 05/10/2023 and it was ascertained that the content and urgency of the report was understood at the time of direct communication. VANCE Reference: - >1.4 = calcified vessels - 0.9 - 1.4 = normal - no significant arterial disease - 0.7 - 0.89 = mild peripheral arterial disease - 0.51 - 0.69 = moderate peripheral arterial disease - ? 0.50 = severe peripheral arterial disease - < .30 = critical arterial disease Dictated By: Coleman Chaidez MD Signed By: <Electronically signed by Coleman Chaidez MD in OV> 05/10/23 1114 DD/ 0949 TD/TT: Risk Manager: US arterial duplex LE BI Reviewed date:05/12/2023 06:32:45 AM Interpretation: Performing Lab: Notes/Report: [address] [address] Ultrasound Report Signed Patient: Zan Encinas MR#: [id number] : 1960 Acct:[id number] Age/Sex: 63 / M ADM Date: 05/10/23 Loc: . Attending Dr: Bimal Knott MD Ordering Physician: Bimal Knott MD Date of Service: 05/10/23 Procedure(s): US arterial duplex LE BI Accession Number(s): [id number] cc: Quinton Callahan MD; Bimal Knott MD EXAMINATION: Noninvasive assessment of the bilateral lower extremities with ARTERIAL DUPLEX and ANKLE BRACHIAL INDICES (ABIs). CLINICAL INFORMATION: Peripheral vascular disease with claudication TECHNIQUE: Duplex Doppler techniques with waveform analysis and measurement of velocities in the bilateral common femoral, profunda femoris, superficial femoral, popliteal and tibial arteries were performed. Additionally, ankle pulse volume recordings, ankle pressure measurements and ankle brachial indices were obtained of the lower extremity arterial system bilaterally. The study was performed only at rest. COMPARISON: 03/24/2020 FINDINGS: DIRECT DUPLEX DOPPLER FINDINGS: RIGHT LEG: Common femoral artery: 145 cm/s, phasicity: Triphasic. Mild calcified plaque Profunda femoris artery: 130 cm/s, phasicity: Triphasic Superficial femoral artery (proximal): 133 cm/s, phasicity: Triphasic. Mild noncalcified plaque Superficial femoral artery (mid): 73.6 cm/s, phasicity: Monophasic Superficial femoral artery (distal): Underlying vascular stent with occlusion at the proximal margin. Collateral vessels arising from the distal superficial femoral artery. Popliteal artery: Proximal segment is occluded. Reconstituted flow in the mid to distal segment. 29.0 Cm/s, phasicity: Monophasic Posterior tibial artery: Proximal and mid segments are occluded with reconstituted flow in the distal segment. Velocity measures 15.8 cm/s, phasicity: Monophasic Peroneal artery: 10.9 cm/s, phasicity: Monophasic Anterior tibial artery: 22.5 cm/s, phasicity: Monophasic Dorsalis pedis artery: Occluded LEFT LEG: Common femoral artery: 117 cm/s, phasicity: Triphasic Profunda femoris artery: 163 cm/s, phasicity: Triphasic Superficial femoral artery (proximal): 148 cm/s, phasicity: Triphasic Superficial femoral artery (mid): 118 cm/s, phasicity: Triphasic Superficial femoral artery (distal): 126 cm/s, phasicity: Triphasic Popliteal artery: 96 cm/s, phasicity: Triphasic Posterior tibial artery: 17.3 cm/s, phasicity: Monophasic within the proximal segment. Mid and distal segments are occluded Peroneal artery: 73.1 cm/s, phasicity: Biphasic Anterior tibial artery: 70.8 cm/s, phasicity: Triphasic Dorsalis pedis artery: 48.4 cm/s, phasicity: Monophasic ANKLE-BRACHIAL INDEX: Right: Nondiagnostic? Left: Nondiagnostic ANKLE PRESSURES: Right: PT inaudible, DP inaudible Left: PT?inaudible, DP?inaudible ANKLE PVR WAVEFORMS: Right: Abnormal Left: Abnormal US/US arterial duplex LE BI IMPRESSION: Right leg: Stent in the distal superficial femoral artery is occluded with occlusion extending through the proximal popliteal artery. Reconstituted flow in the distal popliteal artery. Markedly dampened arterial waveforms in the below-knee runoff vessels with areas of occlusive changes in the posterior tibial and dorsalis pedis artery Left leg: Patent arterial flow within the left lower extremity except for occlusive changes in the mid to distal posterior tibial artery. This critical result was discussed with Dr. Payton at 1114 on 05/10/2023 and it was ascertained that the content and urgency of the report was understood at the time of direct communication. VANCE Reference: - >1.4 = calcified vessels - 0.9 - 1.4 = normal - no significant arterial disease - 0.7 - 0.89 = mild peripheral arterial disease - 0.51 - 0.69 = moderate peripheral arterial disease - ? 0.50 = severe peripheral arterial disease - < .30 = critical arterial disease Dictated By: Coleman Chaidez MD Signed By: <Electronically signed by Coleman Chaidez MD in OV> 05/10/23 1114 DD/ 0949 TD/TT: Risk Manager: Blood Urea Nitrogen Reviewed date:06/18/2023 01:31:54 PM Interpretation: Performing Lab:[facility], [address] [place] [phone] Notes/Report: Blood Urea Nitrogen 12 9-16 mg/dL Creatinine Reviewed date:06/18/2023 01:31:54 PM Interpretation: Performing Lab:[facility], [address] [place] [phone] Notes/Report: Creatinine 0.74 0.5-1.4 mg/dL Estimated Glomerular Filt Rate > 60 NOTE: For -Latvian individuals, multiply the result by 1.210. Chronic Kidney Disease: Estimated GFR < 60 mL/min/1.73m2 Severe Kidney Disease: Estimated GFR < 15 mL/min/1.73m2 CT angio abd aorta runoff Reviewed date:07/03/2023 10:30:19 AM Interpretation: Performing Lab: Notes/Report: [address] [address] [address] Scan Report Signed Patient: Zan Encinas MR#: [id number] : 1960 Acct:[id number] Age/Sex: 63 / M ADM Date: 06/28/23 Loc: .CT Attending Dr: Bimal Knott MD Ordering Physician: Bimal Knott MD Date of Service: 06/28/23 Procedure(s): CT angio abd aorta runoff Accession Number(s): [id number] cc: Quinton Callahan MD; Bimal Knott MD STUDY PERFORMED: CTA ABDOMEN, PELVIS AND LOWER EXTREMITY RUNOFF WITH CONTRAST HISTORY: Reason for Exam I73.9 - Peripheral vascular disease, unspecified DESCRIPTION: Routine abdominal aorta and lower extremity runoff CTA protocol with contrast was performed. 100 mL of Omnipaque was administered. 3D POSTPROCESSING: Multiple 3-D angiographic images were processed from the initial data set by the [facility] under concurrent physician supervision. DOSE LOWERING TECHNIQUES: This CT examination was performed using dose optimization techniques as appropriate, variously including the following: - Automated exposure control - Adjustment of mA and/or kV according to patient size (this includes techniques or standardized protocols for targeted exams where dose is matched to indication/reason for exam; i.e. extremities or head) - Use of iterative reconstruction technique DLP: 733 mGycm. COMPARISON: Lower extremity duplex and ABIs 05/10/2023 FINDINGS: VASCULAR: ABDOMINAL AORTA: patent and normal in caliber RIGHT LOWER EXTREMITY: - Common Iliac Artery: patent - Internal Iliac Artery: patent - External Iliac Artery: patent - Common Femoral Artery: patent - Profunda Femoral Artery: patent - Superficial Femoral Artery: Scattered calcific and fibrofatty plaque causing at most mild stenoses. - Popliteal Artery: Occluded stent. There is reconstitution of the distal popliteal artery. - Anterior Tibial Artery: Fibrofatty and calcific plaque throughout, but appears patent -Tibioperoneal trunk: patent - Posterior Tibial Artery: Fibrofatty and calcific plaque throughout, but appears patent - Peroneal Artery: Fibrofatty and calcific plaque throughout, but appears patent LEFT LOWER EXTREMITY: - Common Iliac Artery: patent - Internal Iliac Artery: patent - External Iliac Artery: patent - Common Femoral Artery: patent - Profunda Femoral Artery: patent - Superficial Femoral Artery: patent - Popliteal Artery: Fibrofatty plaque causing 50% stenosis at the level of the joint space. - Anterior Tibial Artery: Multifocal fibrofatty and calcific plaque causing multifocal stenoses, but overall patent. -Tibioperoneal trunk: patent - Posterior Tibial Artery: Multifocal fibrofatty and calcific plaque causing multifocal stenoses, but overall patent. - Peroneal Artery: patent CELIOMESENTERIC ARTERIES: The celiac artery, SMA, and RONDA are patent RENAL ARTERIES: patent bilateral renal arteries NONVASCULAR: Lung Bases: The visualized lung bases are unremarkable. Liver and Biliary Tree: The liver is normal in size, shape, and attenuation. No focal hepatic lesion or biliary ductal dilatation is present. Gallbladder: The gallbladder is unremarkable with no evidence of radiopaque gallstones, gallbladder wall thickening, or obvious pericholecystic inflammatory changes. Pancreas: Unremarkable. Spleen: Unremarkable. Adrenal Glands: Unremarkable. Kidneys and Ureters: The kidneys are normal in size. Mild left-sided hydronephrosis. No hydroureter. Bladder: Unremarkable. Gastrointestinal Tract: The small and large bowel are unremarkable. The appendix is unremarkable. Abdominal Wall: Small fat-containing periumbilical hernia. Lymph Nodes: Normal. Pelvic Viscera: The prostate is enlarged. Osseous Structures: Unremarkable. CT/CT angio abd aorta runoff IMPRESSION: Vascular: Right lower extremity: Inflow: Patent Femoral-popliteal: Occluded popliteal artery stent, with reconstitution of the distal popliteal artery Runoff: Multifocal disease within all 3 tibial arteries Left lower extremity: Inflow: Patent Femoral-popliteal: Fibrofatty plaque in the mid popliteal artery causing 50% stenosis at the level of the joint space Runoff: The peroneal artery is patent. Multifocal plaque within the anterior tibial artery and posterior tibial artery, which appear patent Nonvascular: Mild left-sided hydronephrosis, but no hydroureter Dictated By: Reymundo Matson MD Signed By: <Electronically signed by Reymundo Matson MD in OV> 07/02/23 1003 DD/ 0900 TD/TT: Risk Manager: Complete Blood Count Auto Di ff Reviewed date:07/24/2023 09:31:57 AM Interpretation: Performing Lab:[facility], [address] [place] [phone] Notes/Report: White Blood Count 7.7 4.8-10.8 X10*3/uL Red Blood Count 4.51 4.60-5.80 X10*6/uL Hemoglobin 15.0 14.0-18.0 g/dl Hematocrit 42.7 42.0-52.0 % Mean Corpuscular Volume 94.7 80.0-98.0 fL Mean Corpuscular Hemoglobin 33.3 27.0-33.0 pg Mean Corpuscular HGB Conc 35.1 31.0-36.0 g/dl Red Cell Distribution Width 13.4 11.0-16.0 % Platelet Count 303 160-400 X10*3/uL Mean Platelet Volume 9.3 9.4-12.4 fL Neutrophils Percent Auto 59.9 45-73 % Imm Gran Pct Auto 0.4 0.0-0.4 % Lymphocytes Percent Auto 25.2 20-40 % Monocytes Percent Auto 10.8 2-11 % Eosinophils Percent Auto 3.1 0-4 % Basophils Percent Auto 0.6 0-2 % NRBC Pct Auto 0.0 0.0-0.2 /100WBC Neutrophils Absolute Auto 4.6 2.0-8.3 x10*3/u L Imm Gran Abs Auto 0.03 0.00-0.03 X10*3/uL Lymphocytes Absolute Auto 1.9 1.2-4.9 X10*3/u L Monocytes Absolute Auto 0.8 0.1-1.2 X10*3/uL Eosinophils Absolute Auto 0.2 0.0-0.4 X10*3/u L Basophils Absolute Auto 0.1 0.0-0.2 X10*3/uL NRBC Abs Auto 0.000 0.0-0.012 X10*3/uL Blood Urea Nitrogen Reviewed date:07/24/2023 09:31:57 AM Interpretation: Performing Lab:[address] [phone] Notes/Report: Blood Urea Nitrogen 22 9-16 mg/dL Creatinine Reviewed date:07/24/2023 09:31:57 AM Interpretation: Performing Lab:[address] [phone] Notes/Report: Creatinine 0.92 0.5-1.4 mg/dL Creatinine Clr Calc Pharmacy 87.8 eGFR (calculated from the MDRD study equation) and eCrCl (calculated from the Cockcroft-Gault equation) are based on different parameters and may not yield comparable results. If eCrCl result is absurd, please check patient's height/weight. Estimated Glomerular Filt Rate > 60 NOTE: For -Latvian individuals, multiply the result by 1.210. Chronic Kidney Disease: Estimated GFR < 60 mL/min/1.73m2 Severe Kidney Disease: Estimated GFR < 15 mL/min/1.73m2 Type and Screen Reviewed date:08/04/2023 05:32:19 AM Interpretation: Performing Lab:[address] [phone] Notes/Report: Spec expiration changed by BELLO on 08/03/23 Reason: PAT NURSING: Call Blood Bank (ext. [phone]) to band patient on admission. Type and Screen in effect until 2300 on 08/13/2023. Witnessed by HUSSEMIGUE Blood Type OP Antibody Screen NEGATIVE NM gosia perf SPECT rest & str Reviewed date:08/11/2023 05:22:23 AM Interpretation: Performing Lab: Notes/Report: [address] [address] Nuclear Medicine Report Signed Patient: Zan Encinas MR#: [id number] : 1960 Acct:[id number] Age/Sex: 63 / M ADM Date: 08/09/23 Loc: [facility] Attending Dr: Khalif Ferrer MD Ordering Physician: Khalif Ferrer MD Date of Service: 08/09/23 Procedure(s): NM gosia perf SPECT rest str Accession Number(s): [id number] cc: Quinton Callahan MD; Khalif Ferrer MD Lexiscan Myocardial perfusion study Indication: Preoperative cardiovascular evaluation Technique: The patient was brought in for a Lexiscan perfusion study on 08/10/2023 and was injected 0.4 mg of Lexiscan intravenously. Within a minute of this injection 30 mCi of sestamibi was given intravenously. Images were obtained using the SPECT gamma camera interlaced with the gating device. Images were obtained in supine position. Resting perfusion study was performed on 08/09/2023. Patient was administered 30mCi of sestamibi intravenously at rest. Images were then obtained in supine position. Images were processed with the software and compared side to side in short axis, horizontal long axis and vertical long axis views. Total DLP 92mGy-cm. Findings: Raw acquisition reviewed. Arms by the patient's side. The stress perfusion study showed diminished tracer uptake in the distal part of anterior wall and adjacent apex. No major change with CT attenuation correction The gated study shows low normal LV systolic function with calculated LVEF of 52%. LV cavity is normal in size. The gated study shows diminished thickening/contractility in the apical part of anterior wall. Resting study shows diminished tracer uptake along the anterior wall, septum as well as parts of inferior wall. There is overall improved tracer uptake with CT attenuation correction suggestive of components of attenuation artifact. Gating at rest reveals possible diminished contractility in the distal anterior wall with LVEF of 52%. The findings are consistent with fixed distal anterior wall perfusion defect. NM/NM gosia perf SPECT rest str Impression: 1. Myocardial perfusion imaging study shows fixed distal anterior defect; possible prior infarct. Cannot exclude findings of the left bundle branch block. 2. Gated LVEF 52% during stress and rest. 3. Transient ischemic dilatation not present. EKG component of the test reported separately. Dictated By: Delon Trejo MD Signed By: <Electronically signed by Delon Trejo MD in OV> 08/10/23 1257 DD/ 1120 TD/TT: Risk Manager: US venous duplex LE RT Reviewed date:08/11/2023 05:22:23 AM Interpretation: Performing Lab: Notes/Report: [address] [address] Ultrasound Report Signed Patient: Zan Encinas MR#: [id number] : 1960 Acct:[id number] Age/Sex: 63 / M ADM Date: 08/10/23 Loc: .[place] Attending Dr: Bimal Knott MD Ordering Physician: Bimal Knott MD Date of Service: 08/10/23 Procedure(s): US venous duplex LE RT Accession Number(s): [id number] cc: Quinton Callahan MD; Bimal Knott MD EXAMINATION: US LOWER EXTREMITY VEIN MAPPING, RIGHT CLINICAL INDICATION: Peripheral vascular disease COMPARISON: None. TECHNIQUE: Color flow triplex imaging and compression Doppler was performed to evaluate the superficial systems of the right lower extremity. FINDINGS: GREAT SAPHENOUS VEIN: Saphenofemoral Junction: 0.5 cm; depth: 1.5cm Proximal Thigh: 0.3 cm; depth: 1.0cm Mid Thigh: 0.2 cm; depth: 1.0cm Above Knee: 0.3 cm; depth: 1.1cm Duplicated GSV above knee: 0.1 cm; depth: 1.1cm At Knee: 0.3 cm; depth: 0.7cm Below Knee: 0.2 cm; depth: 0.5cm Mid Calf: 0.1 cm; depth: 0.6cm Ankle: 0.2 cm; depth: 0.8cm SMALL SAPHENOUS VEIN: Saphenopopliteal Junction: 0.3 cm; depth: 1.5cm Proximal: 0.2 cm; depth 0.7cm Mid: 0.3cm; depth 0.4cm Distal: 0.2 cm; depth 0.4cm US/US venous duplex LE RT IMPRESSION: Right lower extremity venous mapping. 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 Dictated By: Verena Marinelli MD Signed By: <Electronically signed by Verena Marinelli MD in OV> 08/10/23 1857 DD/ 1336 TD/TT: Risk Manager: PN REASON FOR REFERRAL Reason cintron's esophagiti s Diagnosis 1 Cintron's esophagus determined by endoscopy (K22.70) Referral Organization Quinton Callahan III, MD Referring Provider First Name Quinton Referring Provider Last Name [place] Referring Provider Speciality Internal M edicine Referred Provider Quinton Campos Referred Provider Specialty Gastroentero logy General Notes Jolie Connor DIRECTOR CRITICAL CARE 08/2023 02:22:46 PM EST > called made pt appt for 08/14/2023 at 10:30am info mailed to patient and ref/demo/progress note faxed to Dr Campos Referral Priority Routine Referral Appointment Date 08/14/2023 MEDICATIONS Medication SIG (Take, Route, Frequency, Duration) Notes Start Date End Date Status ASA 1 tab Oral Active Tylenol 325 MG 1 tablet as needed O rally every 4 hrs Active ibuprofen 1 tab Oral Active Pantoprazole Sodium 40 MG Take 2 tablets by mouth once daily Active Atorvastatin Calcium 10 MG Take 1 tablet by mouth once daily Active Tamsulosin HCl 0.4 MG Take 2 capsules by mouth once daily Active SOCIAL HISTORY Tobacco Use: Social History Observation Description Date Details (start date - stop date) Current Smoker NA - NA Sex Assigned At : Social History Observation Description Sex Assigned At Unknown Tobacco Use/Smoking Question Answer Notes Patient is a current smoker How often do you smoke cigarettes? every day How many cigarettes a day do you smoke? 21-30 How soon after you wake up d o you smoke your first cigarette? 31-60 minutes Are you interested in quitting? Thinking about q uitting Additional Findings: Tobacco User Modera te cigarette smoker (10-19 cigs/day) Alcohol Screen Question Answer Notes Did you have a drink containing alcohol in the p ast year? No Points 0 Interpretation Negative PROBLEMS Problem Type ICD Code Onset Dates Problem Status W/U Status Risk SNOMED Code Notes Problem Overweight (E66.3) Active confirmed 512359497 His body mass index is 29. We discussed diet and nutrition. I recommended aggressive weight loss and sodium restriction. Problem Mixed hyperlipidemia (E78.2) Active confirmed 521365588 A [facility] [facility] laboratory database with a fasting lipid profile will be obtained. He was continued on his currrent meddications. Problem Chronic obstructive pulmonary disease, unspecified COPD type (J44.9) Active confirmed 58001392 He stopped smoking a week ago. He says he intends to continue without tobacco use. I made him aware of the various smoking cessation programs in the area and strongly encouraged him to attend. Problem Tobacco dependence (F17.200) Active confirmed 12556825 I have counseled him about smoking cessation and offered to refer him to smoking cessation programs in the community. He said he would consider this and try to cut down. Problem Left bundle branch block (I44.7) Active confirmed Left bundle bra nch block (64529589) The newspaper photo editor's interpretation of the perfusion test was that the defect in the septum may be due to the bundle branch block. I will discuss this with cardiology. Problem Hiatal hernia (K44.9) Active confirmed 80240231 The symptoms o f his esophageal reflux and hiatal hernia well controlled with current medications. No change in his regimen as needed. Problem Peripheral arterial disease (I73.9) Active confirmed 609526703 His right leg is viable. He will proceed to the corrective bypass procedure with vascular surgery. He will then return to the office. Before surgery he will have the cardiac evaluation Problem Hoarseness (R49.0) Active confirmed Hoarseness (76270715) He will be referred to ENT for indirect laryngoscopy. Problem Umbilical hernia without obstruction and without gangrene (K42.9) Active confirmed 0987348 This is asymptomatic and requires no treatment at this time. Problem Benign prostatic hyperplasia with lower urinary tract symptoms (N40.1) Active confirmed 524738987 The tamsulosin was continued today. He will notify me if his symptoms worsen. He has had no retention. He has symptoms of prostatism. Problem Acute right-sided low back pain with right-sided sciatica (M54.41) Active confirmed 301417677 Problem Cintron's esophagus determined by endoscopy (K22.70) Active confirmed 318725748 He is due for an endoscopy and was referred back to his gastroenterolog ist, Dr. Quinton Campos. 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 Problem Carpal tunnel syndrome on both sides (G56.03) Active confirmed [id number] He has a history of carpal tunnel syndrome treated by Dr. Raphael. He is currently asymptomatic. VITAL SIGNS Heart Rate 85 /min 07/09/2023 Temperature 98.1 degrees Fahrenheit 07/09/2023 Blood pressure diastolic 85 mm Hg 07/09/2023 Height 73 in 07/24/2023 Blood pressure systolic 130 mm Hg 07/09/2023 Weight 190 lbs 07/24/2023 BMI 25.06 kg/m2 07/24/2023 Encounters Encounter Location Date Provider Diagnosis Quinton Clalahan III, MD [address] [place] [address] [place] [address] 04/17/2023 Quinton Callahan Chronic obstructive pulmonary disease, unspecified COPD type J44.9 ; Cintron's esophagus determined by endoscopy K22.70 ; Benign prostatic hyperplasia with lower urinary tract symptoms N40.1 ; Tobacco dependence F17.200 ; Peripheral arterial disease I73.9 and Hoarseness R49.0 Quinton Callahan III, MD [address] [place] [address] [place] [address] 04/04/2023 Quinton Callahan Benign prostatic hyperplasia with lower urinary tract symptoms N40.1 ; Cintron's esophagus determined by endoscopy K22.70 ; Peripheral arterial disease I73.9 ; Mixed hyperlipidemia E78.2 and Lumbar back pain M54.50 Quinton Callahan III, MD [address] [place] [address] [place] [address] 06/13/2023 Quinton Callahan Peripheral arterial disease I73.9 ; Tobacco dependence F17.200 ; Overweight E66.3 ; Umbilical hernia without obstruction and without gangrene K42.9 ; Acute right-sided low back pain with right-sided sciatica M54.41 ; Chronic obstructive pulmonary disease, unspecified COPD type J44.9 and Cintron's esophagus determined by endoscopy K22.70 Quinton Callahan III, MD [address] [place] [address] [place] [address] 07/09/2023 Quinton Callahan Peripheral arterial disease I73.9 ; Benign prostatic hyperplasia with lower urinary tract symptoms N40.1 ; Cintron's esophagus determined by endoscopy K22.70 ; Chronic obstructive pulmonary disease, unspecified COPD type J44.9 ; Hiatal hernia K44.9 ; Tobacco dependence F17.200 and Overweight E66.3 Quinton Callahan III, MD [address] [place] [address] [place] [address] 04/02/2023 Quinton Callahan III, MD [address] [place] [address] [place] [address] 04/02/2023 Quinton Callahan III, MD [address] [place] [address] [place] [address] 07/24/2023 Quinton Callahan III, MD [address] [place] [address] [place] [address] 08/02/2023 Quinton Callahan III, MD [address] [place] [address] [place] [address] 08/09/2023 Quinton Callahan III, MD [address] [place] [address] [place] [address] 07/24/2023 Quinton Callahan Peripheral arterial disease I73.9 ; Hiatal hernia K44.9 ; Splenic vein thrombosis I82.890 ; Cintron's esophagus determined by endoscopy K22.70 ; Benign prostatic hyperplasia with lower urinary tract symptoms N40.1 ; Tobacco dependence F17.200 ; Hoarseness R49.0 and Left bundle branch block I44.7 Quinton Callahan III, MD [address] [place] [address] [place] [address] 08/07/2023 Quinton Callahan Peripheral arterial disease I73.9 Quinton Callahan III, MD [address] [place] [address] [place] [address] 08/08/2023 Quinton Callahan Peripheral arterial disease I73.9 ; Benign prostatic hyperplasia with lower urinary tract symptoms N40.1 ; Cintron's esophagus determined by endoscopy K22.70 ; Chronic obstructive pulmonary disease, unspecified COPD type J44.9 ; Tobacco dependence F17.200 and Overweight E66.3 ASSESSMENTS Encounter Date Diagnosis Assessment Notes Treatment Notes Treatment Clinical Notes 04/17/2023 Chronic obstructive pulmonary disease, unspecified COPD type (ICD-10 - J44.9) He stopped smoking a week ago. He says he intends to continue without tobacco use. I made him aware of the various smoking cessation programs in the area and strongly encouraged him to attend. 04/17/2023 Cintron's esophagus determined by endoscopy (ICD-10 - K22.70) He is due for an endoscopy and was referred back to his filter pulp washer, Dr. Quinton Campos. 04/04/2023 Benign prostatic hyperplasia with lower urinary tract symptoms (ICD-10 - N40.1) The tamsulosin was continued today. He will notify me if his symptoms worsen. He has had no retention. He has symptoms of prostatism. 04/04/2023 Cintron's esophagus determined by endoscopy (ICD-10 - K22.70) He is due for an endoscopy and was referred back to his filter pulp washer, Dr. Quinton Campos. 06/13/2023 Tobacco dependence (ICD-10 - F17.200) I have counseled him about smoking cessation and offered to refer him to smoking cessation programs in the community. He said he would consider this and try to cut down. 06/13/2023 Peripheral arterial disease (ICD-10 - I73.9) His right leg is viable. He will proceed to theCT angiogram and a consultation with vascular surgery. He will then return to the office. 07/09/2023 Peripheral arterial disease (ICD-10 - I73.9) His right leg is viable. He will proceed to the corrective angiographical graphic procedure with vascular surgery. He will then return to the office. 07/09/2023 Benign prostatic hyperplasia with lower urinary tract symptoms (ICD-10 - N40.1) The tamsulosin was continued today. He will notify me if his symptoms worsen. He has had no retention. He has symptoms of prostatism. 07/24/2023 Hiatal hernia (ICD-10 - K44.9) The symptoms of his esophageal reflux and hiatal hernia well controlled with current medications. No change in his regimen as needed. 07/24/2023 Peripheral arterial disease (ICD-10 - I73.9) His right leg is viable. He will proceed to the corrective bypass procedure with vascular surgery. He will then return to the office. 08/07/2023 Peripheral arterial disease (ICD-10 - I73.9) His right leg is viable. He will proceed to the corrective bypass procedure with vascular surgery. He will then return to the office. 08/08/2023 Peripheral arterial disease (ICD-10 - I73.9) His right leg is viable. He will proceed to the corrective bypass procedure with vascular surgery. He will then return to the office. Before surgery he will have the cardiac evaluation 08/08/2023 Benign prostatic hyperplasia with lower urinary tract symptoms (ICD-10 - N40.1) The tamsulosin was continued today. He will notify me if his symptoms worsen. He has had no retention. He has symptoms of prostatism. 04/17/2023 Benign prostatic hyperplasia with lower urinary tract symptoms (ICD-10 - N40.1) The tamsulosin was continued today. He will notify me if his symptoms worsen. He has had no retention. He has symptoms of prostatism. 04/04/2023 Peripheral arterial disease (ICD-10 - I73.9) His right leg is viable. He will proceed to the ultrasound and a consultation with vascular surgery. He will then return to the office. 06/13/2023 Overweight (ICD-10 - E66.3) His body mass index is 29. We discussed diet and nutrition. I recommended aggressive weight loss and sodium restriction. 07/09/2023 Cintron's esophagus determined by endoscopy (ICD-10 - K22.70) He is due for an endoscopy and was referred back to his filter pulp washer, Dr. Quinton Campos. 07/24/2023 Splenic vein thrombosis (ICD-10 - I82.890) There have been no further signs of thromboembolism. 08/08/2023 Cintron's esophagus determined by endoscopy (ICD-10 - K22.70) He is due for an endoscopy and was referred back to his filter pulp washer, Dr. Quinton Campos. 04/17/2023 Tobacco dependence (ICD-10 - F17.200) I have counseled him about smoking cessation and offered to refer him to smoking cessation programs in the community. He said he would consider this and try to cut down. 04/04/2023 Mixed hyperlipidemia (ICD-10 - E78.2) A comprehensive laboratory database with a fasting lipid profile will be obtained. He was continued on his currrent meddications. 06/13/2023 Umbilical hernia without obstruction and without gangrene (ICD-10 - K42.9) This is asymptomatic and requires no treatment at this time. 07/09/2023 Chronic obstructive pulmonary disease, unspecified COPD type (ICD-10 - J44.9) He stopped smoking a week ago. He says he intends to continue without tobacco use. I made him aware of the various smoking cessation programs in the area and strongly encouraged him to attend. 07/24/2023 Cintron's esophagus determined by endoscopy (ICD-10 - K22.70) He is due for an endoscopy and was referred back to his filter pulp washer, Dr. Quinton Campos. 08/08/2023 Chronic obstructive pulmonary disease, unspecified COPD type (ICD-10 - J44.9) He stopped smoking a week ago. He says he intends to continue without tobacco use. I made him aware of the various smoking cessation programs in the area and strongly encouraged him to attend. 04/17/2023 Peripheral arterial disease (ICD-10 - I73.9) His right leg is viable. He will proceed to the ultrasound and a consultation with vascular surgery. He will then return to the office. 04/04/2023 Lumbar back pain (ICD-10 - M54.50) 06/13/2023 Acute right-sided low back pain with right-sided sciatica (ICD-10 - M54.41) 07/09/2023 Hiatal hernia (ICD-10 - K44.9) The symptoms of his esophageal reflux and hiatal hernia well controlled with current medications. No change in his regimen as needed. 07/24/2023 Benign prostatic hyperplasia with lower urinary tract symptoms (ICD-10 - N40.1) The tamsulosin was continued today. He will notify me if his symptoms worsen. He has had no retention. He has symptoms of prostatism. 08/08/2023 Tobacco dependence (ICD-10 - F17.200) I have counseled him about smoking cessation and offered to refer him to smoking cessation programs in the community. He said he would consider this and try to cut down. 04/17/2023 Hoarseness (ICD-10 - R49.0) He will be referred to ENT for indirect laryngoscopy. 06/13/2023 Chronic obstructive pulmonary disease, unspecified COPD type (ICD-10 - J44.9) He stopped smoking a week ago. He says he intends to continue without tobacco use. I made him aware of the various smoking cessation programs in the area and strongly encouraged him to attend. 07/09/2023 Tobacco dependence (ICD-10 - F17.200) I have counseled him about smoking cessation and offered to refer him to smoking cessation programs in the community. He said he would consider this and try to cut down. 07/24/2023 Tobacco dependence (ICD-10 - F17.200) I have counseled him about smoking cessation and offered to refer him to smoking cessation programs in the community. He said he would consider this and try to cut down. 08/08/2023 Overweight (ICD-10 - E66.3) His body mass index is 29. We discussed diet and nutrition. I recommended aggressive weight loss and sodium restriction. 06/13/2023 Cintron's esophagus determined by endoscopy (ICD-10 - K22.70) He is due for an endoscopy and was referred back to his filter pulp washer, Dr. Quinton Campos. 07/09/2023 Overweight (ICD-10 - E66.3) His body mass index is 29. We discussed diet and nutrition. I recommended aggressive weight loss and sodium restriction. 07/24/2023 Hoarseness (ICD-10 - R49.0) He will be referred to ENT for indirect laryngoscopy. 07/24/2023 Left bundle branch block (ICD-10 - I44.7) The newspaper photo editor's interpretation of the perfusion test was that the defect in the septum may be due to the bundle branch block. I will discuss this with cardiology. PLAN OF TREATMENT Pending Test Test Name Order Date PROFILE, FASTING (COMPREHENSIVE METABOLI C) 07/09/2019 PROFILE, FASTING (COMPREHENSIVE METABOLI C) 09/19/2019 LIPID PANEL 07/09/2019 LIPID PANEL 09/19/2019 LDH 09/19/2019 CPK 09/19/2019 CBC w DIFF 09/19/2019 CBC w DIFF 07/09/2019 NUC MYOCARDIAL PERF SPECT W MIBI 020 Echocardiogram 12/01/2019 Stress Test 12/01/2019 SARS COV2 RNA RT PCR 04/13/2020 SARS COV2 RNA RT PCR 09/29/2019 Next Appt Details Provider Name:Quinton Callahan, 08/27/2023 03:45:00 PM, [address] [place] [address] [address], [place], [address], Provider Name:Quinton Yusufrne, 10/15/2023 11:00:00 AM, [address] [place] [address] [address], [place], [address], Insurance Providers Payer Name Payer Address Payer Phone Subscriber Number Group Number Insured Name Patient Relationship to Insured Coverage Start Date Coverage End Date [employer] [address] [place] [phone] [id number] Zan Olivo Self - patient is the insured MEDICARE NGS [address] [place] [phone] [id number] Zan Olivo Self - patient is the insured MEDICAL (GENERAL) HISTORY Medical History History ICD Code Barretts esophagus without dysplasia K22 .70 clot in splenic veins COPD (chronic obstructive pulmonary dise ase) J44.9 benign prostatic hypertrophy tobacco dependence GERD thrombus splenic vein 2000 history of cardiac irregularity umbilical hernia hiatal hernia low back pain history of carpal tunnel syndrome overweight right calf claudication Surgical History Surgery Date(Month/Year) arteriogram right lower extremity 05/2019 upper endoscopy, [facility], Dr. Quinton Campos, Cintron's esophagus 2014 upper endoscopy and colonosc opy, [facility], Dr. 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
--- OUTSIDE RECORDS SUMMARY | 2023-08-13 06:26 | XMS_ITS | Patient Health Record ---
Author Organization [facility] Address [address] [place] [address] Care Team Providers Care Fur Drummer Name Role Phone Quinton Callahan MD Primary Care Provider Quinton Mao Unavailable [phone] REASON FOR REFERRAL No Information MEDICATIONS Medication SIG (Take, Route, Frequency, Duration) Notes Start Date End Date Status Aspir-81 81m 1 tablet orally 1 po qd Active Spiriva HandiHaler 18 MCG INHALE ONE CAP [place]ULAH BY MOUTH ONCE A DAY Inhalation for 30 Active Pantoprazole Sodium 40 MG 2 tablet orally Once a day Active Tamsulosin HCl 0.4 MG 2 tablets Orally O nce a day Active IMMUNIZATIONS Vaccine Route Administration Date Status Comme nts Influenza Unknown 06/11/2019 Refused SOCIAL HISTORY Tobacco Use: Social History Observation Description Date Details (start date - stop date) Former Smoker NA - NA Sex Assigned At : Social History Observation Description Sex Assigned At Unknown Tobacco Use/Smoking Question Answer Notes Patient is a former smoker How long has it been since you last smoked? < 1 month Alcohol Screen Question Answer Notes Did you have a drink contain ing alcohol in the past year? Yes How often did you have a dri nk containing alcohol in the past year? 2 to 3 times a week (3 points) How many drinks did you have on a typical day when you were drinking in the past year? 3 or 4 drinks (1 point) How often did you have 6 or more drinks on one occasion in the past year? Monthly (2 points) Points 6 Interpretation Positive PROBLEMS Problem Type ICD Code Onset Dates Problem Status W/U Status Risk SNOMED Code Notes Problem Encounter for screening for malignant neoplasm of colon (Z12.11) Active confirmed 330535924 Problem Palmer's esophagus without dysplasia (K22.70) Active confirmed 474177553 Problem Gastroesophageal reflux disease without esophagitis (K21.9) Active confirmed 509440469 PLAN OF TREATMENT Future Test Test Name Order Date UPPER GI ENDOSCOPY 03/19/2013 UPPER GI ENDOSCOPY 06/11/2019 COLONOSCOPY 06/11/2019 Next Appt Details Provider Name:Quinton Campos , 08/14/2023 10:30:00 AM, [address] [facility], [address], [place], [address], Insurance Providers Payer Name Payer Address Payer Phone Subscriber Number Group Number Insured Name Patient Relationship to Insured Coverage Start Date Coverage End Date MEDICARE OF [place] [address] [place] [address] [phone] [id number] JUAN FRANCISCO HOWELL Self - patient is the insured MEDICAL (GENERAL) HISTORY Medical History History ICD Code Colonoscopy in 12/2009 neg e xcept for a hyperplastic polyp, diverticulosis, and internal hemmorhoids GERD with a small area of Ba rrett's esophagus--EGD in 12/2009-small HH-bx neg for dysplasia Splenic vein thrombosis in approx 1999-- had previously been on Coumadin Denies VT,DM,CVA,renal disease EGD 04/2013 with small area o f Palmer's, no dysplasia nor esophagitis; small hiatal hernia COPD PVD with claudication as below Surgical History Surgery Date(Month/Year) 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 Knott 06/18/2019
--- NOTE | 2023-08-13 06:41 | PC.NURSE ---
patient has nicotine patch placed at home to right side chest under arm
[2023-08-13 06:42] LABS: Hematocrit 42.5 % (42.0-52.0); Hemoglobin 14.9 g/dl (14.0-18.0); Mean Corpuscular HGB Conc 35.1 g/dl (31.0-36.0); Mean Corpuscular Hemoglobin 33.6 pg (27.0-33.0); Mean Corpuscular Volume 95.7 fL (80.0-98.0); Mean Platelet Volume 9.5 fL (9.4-12.4); Platelet Count 294 X10*3/uL (160-400); Red Blood Count 4.44 X10*6/uL (4.60-5.80); Red Cell Distribution Width 13.1 % (11.0-16.0); White Blood Count 8.5 X10*3/uL (4.8-10.8)
[2023-08-13] MEDS: Lactated Ringers 1,000 ML 100 ML IVCONT (06:49)
[2023-08-13 06:51] LABS: INTERNATIONAL NORM RATIO 0.9 (0.9-1.1); Prothrombin Time 11.2 SEC (11.1-13.3)
[2023-08-13 06:54] LABS: Anion Gap 12 (12-20); Blood Urea Nitrogen 20 mg/dL (9-16); Calcium 9.4 mg/dL (8.4-10.2); Carbon Dioxide 25 mmol/L (22-29); Chloride 107 mmol/L (96-108); Creatinine Clr Calc Pharmacy 97.3; Estimated Glomerular Filt Rate > 60; Glucose Random 103 mg/dL (60-115); Partial Thromboplastin Time 26.7 SEC (26.0-36.8); Potassium 4.1 mmol/L (3.3-5.1); Sodium 140 mmol/L (135-145)
[2023-08-13] MEDS: Albuterol Sulfate (0.083%) 2.5 MG/3 ML VIAL.NEB INHALE (07:17)
--- NOTE | 2023-08-13 07:25 | MHC.SHP ---
Pre-Procedural Eval Section A - 24 Hr Update-Section A only Date of Service: 08/13/23 The patient is an INPATIENT: No Changes since office visit: Yes Patient answered all questions The patient has been examined within 24 hours of the surgical procedure. The History & Physical has been completed within 30 days and I have reviewed it.: Yes Section B - Complete if H&P > 30 days Chief Complaint: postop Allergies: Allergies Allergy/AdvReac Type Severity Reaction Status Date / Time No Known Allergies Allergy Verified 08/07/23 11:07 Plan I have reviewed the history and physical and performed a pertinent physical examination on my patient. No changes have occurred unless specified. Time Spent With Patient Time: Total time managing care of this patient today ____ minutes.
--- NOTE | 2023-08-13 07:37 | PC.NURSE ---
patients glasses in clear bag with patient label placed in his shoe.
--- NOTE | 2023-08-13 08:53 | HO.ANESPROP2 ---
[facility] Active Problems Active Problems: All Active Problems (Updated 08/08/23 @ 12:57 by Aleksandra Archuleta NP) Encounter for preoperative pulmonary examination (Acute) Nicotine dependence, cigarettes, uncomplicated (Acute) COPD (chronic obstructive pulmonary disease) (Acute) Preop cardiovascular exam (Acute) Chronic pain syndrome (Acute) Complex regional pain syndrome i of right lower limb (Acute) Peripheral arterial disease (Acute) Atrial fibrillation (Acute) Past Medical History Medical History (Updated 08/08/23 @ 12:57 by Aleksandra Archuleta NP) Arthritis BPH (benign prostatic hyperplasia) Elevated cholesterol S/P angiogram of extremity (07/18/23) Atrial fibrillation History of Palmer's esophagus Splenic vein thrombosis History of femoral angiogram GERD (gastroesophageal reflux disease) COPD (chronic obstructive pulmonary disease) Peripheral arterial disease Family History Family history of problems with anesthesia: No Surgical History Surgical History Hx of oral surgery Hx of tracheostomy History of esophagogastroduodenoscopy (EGD) H/O colonoscopy History of Problems with Anesthesia: No Social History Social History Are you a primary hemodialysis patient care specialist to a significant other at home: No Do you presently have visiting nurse or other home services: No Patient Tobacco Use Status: Former Tobacco user Tobacco use type: Cigarette Cigarette Packs Per Day: 1 Years Smoked: 41 Smoked in Last 30 Days: Yes Patient Interested in Nicotine Replacement: Yes Use of substances other than those prescribed or required for medical reasons: Yes Substance Use Type Other:: smokes marijuana occasionally Substance Use Frequency: Occasionally Have you been hit, kicked, punched, or otherwise hurt by someone within the past year? If so, by whom?: No Are you DNR?: No Advance Directives: No (son is primary contact) Advance Directives Information Provided: Yes Advance Directives on File: No Recently lost weight without trying: No Eating poorly because of decreased appetite: No Nutrition Risks: No Nutritional Risk Poor oral hygiene: No (edentulous) Meds Allergies Allergy/AdvReac Type Severity Reaction Status Date / Time No Known Allergies Allergy Verified 08/07/23 11:07 Active Medications: Current Medications Lactated Ringer's (Lr) 1,000 mls @ 100 mls/hr IVCONT .Q10H JOSETTE Last Admin: 08/13/23 06:49 Dose: 100 mls/hr Home Medications ?Medication ?Instructions ?Recorded ?Confirmed ?Last Taken ?Type aspirin 81 mg tablet,delayed 81 mg PO QAM 01/12/20 08/13/23 08/12/23 History release (Luis Low Dose Aspirin) pantoprazole 40 mg tablet,delayed 80 mg PO QAM 01/12/20 08/13/23 08/13/23 History release tamsulosin 0.4 mg capsule 0.8 mg PO QAM 01/12/20 08/13/23 08/13/23 History atorvastatin 10 mg tablet 10 mg PO QAM 05/04/20 08/13/23 08/13/23 History acetaminophen 325 mg tablet 975 mg PO TID 08/03/23 08/13/23 08/12/23 History (Tylenol) ibuprofen 200 mg tablet 400 mg PO Q8H 08/03/23 08/13/23 08/06/23 History Exam Height,Weight and Vital Signs: Height 6 ft Weight 84.822 kg Last Vital Signs Temp 97.5 F 08/13/23 06:40 Pulse 63 08/13/23 06:40 Resp 16 08/13/23 06:40 BP 135/71 08/13/23 06:40 Pulse Ox 98 08/13/23 06:40 O2 Del Method Room Air 08/13/23 06:40 Pertinent Lab Results Pertinent Lab Results: Laboratory Tests 08/03/23 08/13/23 13:08 06:28 WBC 8.5 RBC 4.44 L Hgb 14.9 Hct 42.5 MCV 95.7 MCH 33.6 H MCHC 35.1 RDW 13.1 Plt Count 294 MPV 9.5 Absolute Nucleated RBC 0.000 Nucleated RBC % (auto) 0.0 PT 11.2 INR 0.9 APTT 26.7 Sodium 140 Potassium 4.1 Chloride 107 Carbon Dioxide 25 Anion Gap 12 BUN 20 H Creatinine 0.83 Estim Creat Clear Calc 97.3 Estimated GFR > 60 Random Glucose 103 Calcium 9.4 Blood Type O Positive Antibody Screen NEGATIVE Assessment and Plan Final Anesthetic Review Family History of Problems with Anesthesia: No History of Problems with Anesthesia: No
--- NOTE | 2023-08-13 08:54 | HO.ANESPROP2 ---
[facility] Active Problems Active Problems: All Active Problems Encounter for preoperative pulmonary examination (Acute) Nicotine dependence, cigarettes, uncomplicated (Acute) COPD (chronic obstructive pulmonary disease) (Acute) Preop cardiovascular exam (Acute) Chronic pain syndrome (Acute) Complex regional pain syndrome i of right lower limb (Acute) Peripheral arterial disease (Acute) Atrial fibrillation (Acute) Past Medical History Medical History (Updated 08/08/23 @ 12:57 by Aleksandra Archuleta NP) Arthritis BPH (benign prostatic hyperplasia) Elevated cholesterol S/P angiogram of extremity (07/18/23) Atrial fibrillation History of Palmer's esophagus Splenic vein thrombosis History of femoral angiogram GERD (gastroesophageal reflux disease) COPD (chronic obstructive pulmonary disease) Peripheral arterial disease Functional capacity: independent ambulation Family History Family history of problems with anesthesia: No Surgical History Surgical History Hx of oral surgery Hx of tracheostomy History of esophagogastroduodenoscopy (EGD) H/O colonoscopy History of Problems with Anesthesia: No Social History Social History Are you a primary complex care nurse practitioner to a significant other at home: No Do you presently have visiting nurse or other home services: No Patient Tobacco Use Status: Former Tobacco user Tobacco use type: Cigarette Cigarette Packs Per Day: 1 Years Smoked: 41 Smoked in Last 30 Days: Yes Patient Interested in Nicotine Replacement: Yes Use of substances other than those prescribed or required for medical reasons: Yes Substance Use Type Other:: smokes marijuana occasionally Substance Use Frequency: Occasionally Have you been hit, kicked, punched, or otherwise hurt by someone within the past year? If so, by whom?: No Are you DNR?: No Advance Directives: No (son is primary contact) Advance Directives Information Provided: Yes Advance Directives on File: No Recently lost weight without trying: No Eating poorly because of decreased appetite: No Nutrition Risks: No Nutritional Risk Poor oral hygiene: No (edentulous) Meds Allergies Allergy/AdvReac Type Severity Reaction Status Date / Time No Known Allergies Allergy Verified 08/07/23 11:07 Active Medications: Current Medications Albuterol Sulfate (Albuterol Sulfate (0.083%) 2.5 Mg/3 Ml Vial.Neb) 2.5 mg INHALE ONCE PRN PRN Reason: Wheezing Stop: 08/13/23 14:53 Fentanyl (Fentanyl Citrate/Pf 100 Mcg/2 Ml Vial) 25 mcg IVPUSH Q5M PRN; Protocol PRN Reason: Pain, Moderate(Pain Scale 4-6) Stop: 08/13/23 14:53 Lactated Ringer's (Lr) 1,000 mls @ 100 mls/hr IVCONT .Q10H JOSETTE Last Admin: 08/13/23 06:49 Dose: 100 mls/hr Ondansetron HCl (Ondansetron Hcl 4 Mg/2 Ml Vial) 4 mg IVPUSH ONCE PRN PRN Reason: Nausea and Vomiting Stop: 08/13/23 14:53 Home Medications ?Medication ?Instructions ?Recorded ?Confirmed ?Last Taken ?Type aspirin 81 mg tablet,delayed 81 mg PO QAM 01/12/20 08/13/23 08/12/23 History release (Luis Low Dose Aspirin) pantoprazole 40 mg tablet,delayed 80 mg PO QAM 01/12/20 08/13/23 08/13/23 History release tamsulosin 0.4 mg capsule 0.8 mg PO QAM 01/12/20 08/13/23 08/13/23 History atorvastatin 10 mg tablet 10 mg PO QAM 05/04/20 08/13/23 08/13/23 History acetaminophen 325 mg tablet 975 mg PO TID 08/03/23 08/13/23 08/12/23 History (Tylenol) ibuprofen 200 mg tablet 400 mg PO Q8H 08/03/23 08/13/23 08/06/23 History Exam Height,Weight and Vital Signs: Height 6 ft Weight 84.822 kg Last Vital Signs Temp 97.5 F 08/13/23 06:40 Pulse 63 08/13/23 06:40 Resp 16 08/13/23 06:40 BP 135/71 08/13/23 06:40 Pulse Ox 98 08/13/23 06:40 O2 Del Method Room Air 08/13/23 06:40 Pertinent Lab Results Pertinent Lab Results: Laboratory Tests 08/03/23 08/13/23 13:08 06:28 WBC 8.5 RBC 4.44 L Hgb 14.9 Hct 42.5 MCV 95.7 MCH 33.6 H MCHC 35.1 RDW 13.1 Plt Count 294 MPV 9.5 Absolute Nucleated RBC 0.000 Nucleated RBC % (auto) 0.0 PT 11.2 INR 0.9 APTT 26.7 Sodium 140 Potassium 4.1 Chloride 107 Carbon Dioxide 25 Anion Gap 12 BUN 20 H Creatinine 0.83 Estim Creat Clear Calc 97.3 Estimated GFR > 60 Random Glucose 103 Calcium 9.4 Blood Type O Positive Antibody Screen NEGATIVE Airway Mallampati Class: III TM Dist: >3cm Denture: Upper and Lower Heart: RRR Lungs: BSdiminished BL Assessment and Plan Assessment Anesthesia Assessment: Anesthesia Plan Discussed and Smoking Cess. Discussed Final Anesthetic Review Family History of Problems with Anesthesia: No History of Problems with Anesthesia: No ASA Class: III Final Preanesthetic Review: Meds/Allgs Chart Reviewed, Consent Obtained/Reviewed and Anes Risks/Benef Reviewed Patient Risk: Intermediate Procedure Risk: Intermediate Anesthetic Plan Anesthetic Plan: GA Disposition: Standard PACU
--- NOTE | 2023-08-13 13:18 | W.PM.OPN ---
Operative Note Operative Note Date of Service: 08/13/23 Narrative: Operative note by [facility] Preoperative diagnosis: Peripheral vascular disease with rest pain Postoperative diagnosis: Same Procedure: Right distal SFA to below-knee popliteal bypass with reverse saphenous vein graft Surgeon:Bimal Knott M.D. Cut Lace Machine Operator: Fito Anesthesia: General Specimens: None Drains: None Estimated blood loss: 100 ml Indications: Very pleasant 63-year-old gentleman with a history of smoking and peripheral vascular disease now presents for bypass. He had a prior stenting of this right lower extremity which has gone on to occlude. The patient has signed the informed consent after reviewing risks, complications, benefits, and alternatives previously discussed with the patient. The patient was given the opportunity to ask any additional questions or voice any concerns. All questions were answered to the patient's satisfaction. Procedure in detail: Patient was brought to the operating room prior to which a time-out was called for patient identification and site verification. Right lower extremity was prepped and draped in standard surgical fashion. After perioperative anesthesia was administered we then created an incision at the above knee popliteal distal SFA. We carried out this incision on the medial aspect of the leg through the sartorius and vastus medialis. We were able to get in and eventually identify the popliteal artery which had occluded. The hardened area with the stent was easily identified. We went more proximal to this to the distal SFA and we found a patent area which appeared to be softened. In a similar fashion we went down to the below-knee popliteal. We made an incision between the tibia and the head of the gastroc. We got down through the fascia and we were able to eventually identify the below-knee popliteal. We isolated all of these vessels with silastic loops. At this time we then went on to identify the great saphenous vein from our most proximal incision to our distal incision. This had been prior marked with ultrasound by Radiology. We identified this vein and we harvested it from our most proximal incision on down to our distal beyond our distal incision. We harvested that entire length. Side branches were tied off with 3-0 silk ties along with clips. Once the vein was harvested it was reversed. We flushed this through and identified any bleeding sources. All bleeding sources were closed off with a 7 0 Prolene suture. It appeared to be adequate caliber vein. We then administered 5000 units of systemic heparin. After 5 minutes of circulation time we 1st turned our attention to the proximal incision where the distal SFA was. We isolated this with silastic loops along with clamps. We made an arteriotomy using an 11 blade. We circumferentially anastomosed the vein which had been trimmed to appropriate size using a 6 0 Prolene. Once this was accomplished we tunneled down to within the anatomic plane in the behind knee down to the below-knee popliteal. We trimmed the vein to the appropriate length. We then anastomosed using a 6 0 Prolene. Once this was all accomplished we used a Doppler to assess the graft. We did not appreciate appropriate flow through the graft. We returned our attention to the proximal anastomosis which did not appear to be filling. We took down this anastomosis we trimmed down the graft once again. We used coronary dilators to dilate up the vein. We once again then circumferentially anastomosed using a 6 0 Prolene. We prior to closure we flushed clear. We then closed. Of note during this portion an hour had passed and we administered an additional 2000 units of heparin. Once this was accomplished we closed this reanastomosis. Once closed we did a obtain an appropriate pulse throughout the graft. Once this was all accomplished adequate hemostasis was achieved. This Tisseel was used as a hemostatic agent. We reapproximated deep layer using 2 0 Polysorb superficial layer with 3-0 poly Sorb and finally skin with skin clips. At the end the case sponge instrument counts were correct. Patient tolerated the procedure well. Returned to recovery with stable vitals. This note is constructed using voice recognition software. While every effort has been made to ensure accuracy, construction code administrator errors may have been included. Thank you for allowing me to participate in the care of your patient. Yours sincerely, Bimal Knott MD, FACS, R.P.V.I.
[2023-08-13] MEDS: 0.9 % Sodium Chloride 1,000 ML 80 ML IVCONT (13:48)
--- NOTE | 2023-08-13 14:18 | P.HPCC_ITS ---
History of Present Illness Date of Service: 08/13/23 Chief Complaint: Status post elective right SFA-to-pop bypass 63-year-old gentleman former 75 pack-year smoker with underlying COPD, peripheral arterial disease, splenic vein thrombosis, AFib, BPH now status post elective right SFA-to-pop bypass being monitored in the intensive care unit. Review of Systems 2 Constitutional: Constitutional: Denies daytime sleepiness, Denies excessive sweating, Denies fatigue, Denies fever(s), Denies lethargy, Denies malaise, Denies night sweats, Denies snoring and Denies weight loss Eyes: Eyes: Denies blurry vision and Denies itchy eyes ENT: Denies nasal congestion, Denies post nasal drip, Denies sinus pain, Denies sinus pressure and Denies other ( Thrush) Cardiovascular: Cardiovascular: Denies chest pain, Denies pedal edema, Denies dyspnea, Denies orthopnea and Denies paroxysmal nocturnal dyspnea Respiratory: Respiratory: Denies cough, Denies hemoptysis, Denies excessive phlegm production, Denies dyspnea, Denies snoring and Denies wheezing Gastrointestinal: Gastrointestinal: Denies abdominal pain and Denies heartburn Musculoskeletal: Musculoskeletal: Denies myalgias, Denies arthralgias and Denies joint swelling Integumentary/Breasts: Skin/Breast: Denies rash Neurologic: Denies memory loss and Denies seizure-like activity Psychiatric: Psychiatric: Denies abnormal sleep pattern, Denies anxiety and Denies memory loss Endocrine: Endocrine: Denies excessive sweating, Denies fatigue and Denies heat intolerance Hematologic/Lymphatic: Hematologic/Lymphatic: Denies easy bruising Allergic/Immunologic: Allergic/Immunologic: Denies itchy eyes, Denies seasonal rhinorrhea and Denies wheezing PMFSH Past Medical History Medical History (Updated 08/08/23 @ 12:57 by Aleksandra Archuleta NP) Arthritis BPH (benign prostatic hyperplasia) Elevated cholesterol S/P angiogram of extremity (07/18/23) Atrial fibrillation History of Palmer's esophagus Splenic vein thrombosis History of femoral angiogram GERD (gastroesophageal reflux disease) COPD (chronic obstructive pulmonary disease) Peripheral arterial disease Surgical History Surgical History (Updated 08/13/23 @ 14:23 by Sawyer Case MD) Hx of oral surgery Hx of tracheostomy History of esophagogastroduodenoscopy (EGD) H/O colonoscopy Social History Social History Household Members: None Housing: Apartment Are you a primary pet care assistant to a significant other at home: No Do you presently have visiting nurse or other home services: No Patient Tobacco Use Status: Former Tobacco user Tobacco use type: Cigarette Cigarette Packs Per Day: 1 Cigarettes Per Day: 20.0 Years Smoked: 41 Smoked in Last 30 Days: Yes e-Cigarette/Vaping Use: Former Use Frequency of e-Cigarette/Vaping Use: Occasional Patient Interested in Nicotine Replacement: Yes Patient Given Instructions on How to Stop Smoking: No (Patient quit) Use of substances other than those prescribed or required for medical reasons: Yes Substance Use Type: Marijuana Substance Use Type Other:: smokes marijuana occasionally Substance Use Frequency: Occasionally Last Used Substance: Weeks (ago) Currently Displaying Signs/Symptoms of Drug Intoxication Withdrawal: No Have you been hit, kicked, punched, or otherwise hurt by someone within the past year? If so, by whom?: No Do you feel safe in your current relationship?: Yes [facility] Practices: Sikhism Are you DNR?: No Advance Directives: No (son is primary contact) Advance Directives Information Provided: Yes Advance Directives on File: No Recently lost weight without trying: No Eating poorly because of decreased appetite: No Nutrition Risks: No Nutritional Risk Poor oral hygiene: No (edentulous) Meds Allergies Allergy/AdvReac Type Severity Reaction Status Date / Time No Known Allergies Allergy Verified 08/07/23 11:07 Active Medications: Current Medications Acetaminophen (Acetaminophen 325 Mg Tablet) 650 mg PO Q6H PRN PRN Reason: Pain, Mild (Pain Scale 1-3), fever or headache Albuterol Sulfate (Albuterol Sulfate (0.083%) 2.5 Mg/3 Ml Vial.Neb) 2.5 mg INHALE ONCE PRN PRN Reason: Wheezing Stop: 08/13/23 14:53 Albuterol Sulfate (Albuterol Sulfate 90 Mcg 8 Gm Inhaler) 2 puff INHALE Q4H PRN PRN Reason: shortness of breath or wheezing Aspirin (Aspirin Enteric Coated 81 Mg Tablet.) 81 mg PO DAILY JOSETTE Atorvastatin Calcium (Atorvastatin Calcium 10 Mg Tablet) 10 mg PO DAILY JOSETTE Calcium Carbonate (Calcium Carbonate 750 Mg Tab.Chew) 750 mg PO Q4H PRN PRN Reason: Heartburn Fluticasone/Vilanterol (Fluticasone/Vilanterol 200/25 Blst.W.Dev) 1 puff INHALE RDAILY [facility] Sodium Chloride (Ns) 1,000 mls @ 80 mls/hr IVCONT .[id number] [facility] Last Admin: 08/13/23 13:48 Dose: 80 mls/hr Cefazolin Sodium/Dextrose (Ancef) 2 gm in 50 mls @ 100 mls/hr IV POSTOP ONE Stop: 08/13/23 14:29 Magnesium Hydroxide (Milk Of Magnesia 30 Ml Oral.Susp) 30 ml PO DAILY PRN PRN Reason: Constipation Melatonin (Melatonin 3 Mg Tablet) 6 mg PO BEDTIME PRN PRN Reason: Insomnia Morphine Sulfate (Morphine Sulfate 2 Mg/Ml Cartridge) 2 mg IVPUSH Q4H PRN; Protocol PRN Reason: Pain, Severe (Pain Scale 7-10) Nicotine (Nicotine 21 Mg Patch.Td24) 21 mg TRANSDERMA DAILY [facility] Omeprazole (Omeprazole 40 Mg Capsule.Dr) 40 mg PO DAILY@0630 [facility] Oxycodone HCl (Oxycodone Hcl Immed Release 5 Mg Tablet) 5 mg PO Q4H PRN PRN Reason: Pain, Moderate(Pain Scale 4-6) Prednisone (Prednisone 20 Mg Tablet) 40 mg PO DAILY [facility] Sodium Chloride (0.9 % Sodium Chloride Flush 3 Ml Syringe) 3 ml IVFLUSH QSHIFT [facility] Tamsulosin HCl (Tamsulosin Hcl 0.4 Mg Capsule) 0.8 mg PO DAILY [facility] Home Medications ?Medication ?Instructions ?Recorded ?Confirmed ?Last Taken ?Type aspirin 81 mg tablet,delayed 81 mg PO QAM 01/12/20 08/13/23 08/12/23 History release (Luis Low Dose Aspirin) pantoprazole 40 mg tablet,delayed 80 mg PO QAM 01/12/20 08/13/23 08/13/23 History release tamsulosin 0.4 mg capsule 0.8 mg PO QAM 01/12/20 08/13/23 08/13/23 History atorvastatin 10 mg tablet 10 mg PO QAM 05/04/20 08/13/23 08/13/23 History acetaminophen 325 mg tablet 975 mg PO TID 08/03/23 08/13/23 08/12/23 History (Tylenol) ibuprofen 200 mg tablet 400 mg PO Q8H 08/03/23 08/13/23 08/06/23 History Physical Exam 2 Vital Signs: Vital Signs: Last Vital Signs Temp 97.3 F 08/13/23 13:44 Pulse 73 08/13/23 14:00 Resp 18 08/13/23 14:00 BP 120/61 08/13/23 14:00 Pulse Ox 97 08/13/23 14:00 O2 Del Method Nasal Cannula wit h Capnography 08/13/23 13:44 O2 Flow Rate 2 08/13/23 13:44 BMI result Body Mass Index 25.4 Const: General: no acute distress, alert and awake Eyes: Sclerae: sclerae normal EOM: EOMs intact bilaterally Neck: Neck: Yes no lymphadenopathy, Yes trachea midline and Yes supple Resp: Effort & Inspection: normal respiratory effort and no respiratory distress Auscultation: clear to auscultation bilaterally Cardio: Rate: regular rate Rhythm: regular rhythm Heart sounds: no gallops, no murmurs and no rubs GI: Palpation (GI): Soft to palpation and Other GI palpation findings present ( Nontender) Auscultation: normal bowel sounds Extrem: General: Yes no pedal edema, No clubbing, No cyanosis and Yes other (Right lower extremity surgical sites without hematoma.) Results Labs 08/13/23 06:28 08/13/23 06:28 Labs: Laboratory Results - last 24 hr 08/13/23 06:28 MCV 95.7 MCH 33.6 H MCHC 35.1 RDW 13.1 Plt Count 294 MPV 9.5 Absolute Nucleated RBC 0.000 Nucleated RBC % (auto) 0.0 PT 11.2 INR 0.9 APTT 26.7 Anion Gap 12 Estim Creat Clear Calc 97.3 Estimated GFR > 60 Random Glucose 103 Calcium 9.4 Assessment and Plan (1) Status post femoral-popliteal bypass surgery: Status: Acute (2) COPD (chronic obstructive pulmonary disease): Status: Acute (3) Peripheral arterial disease: Status: Acute (4) Atrial fibrillation: Status: Acute Plan Assessment: 63-year-old gentleman postoperative day 0 status post elective right SFA to pop bypass being monitored in the intensive care unit. Plan: Neuro: No acute issues. Cardiac: Postoperative day 0 after an elective right SFA to pop bypass. Vascular surgery service care appreciated. Maintain SBP under 160. Underlying PVD. Pulmonary: No acute issues. Underlying COPD. Renal: No acute issues. Endo: No acute issues. GI: No acute issues. ID: No acute issues Heme/Onc: No acute issues. Psych: No acute issues. Miscellaneous: No acute issues. Prophylaxis: Per vascular surgery Diet: Regular
[2023-08-13] MEDS: Atorvastatin Calcium 10 MG TABLET PO (14:42)
[2023-08-13] MEDS: Aspirin Enteric Coated 81 MG TABLET.DR PO (14:43)
[2023-08-13] MEDS: Omeprazole 40 MG CAPSULE.DR PO (14:44)
[2023-08-13] MEDS: Tamsulosin HCL 0.4 MG CAPSULE 0.8 MG PO (14:44)
[2023-08-13] MEDS: Acetaminophen 325 MG TABLET 650 MG PO ×2 (14:44→21:12)
[2023-08-13] MEDS: ceFAZolin Sodium/Dextrose,Iso 2 GM/50 ML PIGGYBACK IV (14:45)
[2023-08-13] MEDS: oxyCODONE HCl Immed Release 5 MG TABLET PO ×2 (16:45→22:05)
[2023-08-13] MEDS: 0.9 % Sodium Chloride Flush 3 ML SYRINGE IVFLUSH ×2 (16:45→22:06)
[2023-08-14] VITALS (17 sets, daily range): BP systolic 109–154; BP diastolic 59–74; PULSE 59–90; RESP 11–20; TEMP 36.1–36.6; O2SAT 92–97; BMI 24.8
[2023-08-14] MEDS: 0.9 % Sodium Chloride 1,000 ML 80 ML IVCONT (02:18)
[2023-08-14] MEDS: oxyCODONE HCl Immed Release 5 MG TABLET PO ×4 (02:21→19:51)
[2023-08-14] MEDS: Morphine Sulfate 2 MG/ML CARTRIDGE IVPUSH ×2 (04:09→11:37)
[2023-08-14 05:40] LABS: MANUAL DIFF FLAG NO
[2023-08-14 05:49] LABS: Basophils Percent Auto 0.1 % (0-2); Eosinophils Percent Auto 0.3 % (0-4); Hematocrit 36.1 % (42.0-52.0); Hemoglobin 12.6 g/dl (14.0-18.0); Imm Gran Abs Auto 0.04 X10*3/uL (0.00-0.03); Imm Gran Pct Auto 0.4 % (0.0-0.4); Lymphocytes Absolute Auto 1.5 X10*3/uL (1.2-4.9); Lymphocytes Percent Auto 14.2 % (20-40); Mean Corpuscular HGB Conc 34.9 g/dl (31.0-36.0); Mean Corpuscular Hemoglobin 33.8 pg (27.0-33.0); Mean Corpuscular Volume 96.8 fL (80.0-98.0); Mean Platelet Volume 9.6 fL (9.4-12.4); Monocytes Absolute Auto 1.3 X10*3/uL (0.1-1.2); Neutrophils Absolute Auto 7.7 x10*3/uL (2.0-8.3); Platelet Count 215 X10*3/uL (160-400); Red Blood Count 3.73 X10*6/uL (4.60-5.80); Red Cell Distribution Width 13.1 % (11.0-16.0); White Blood Count 10.6 X10*3/uL (4.8-10.8)
[2023-08-14 06:00] LABS: Anion Gap 10 (12-20); Blood Urea Nitrogen 10 mg/dL (9-16); Calcium 8.5 mg/dL (8.4-10.2); Carbon Dioxide 27 mmol/L (22-29); Chloride 107 mmol/L (96-108); Creatinine Clr Calc Pharmacy 113.8; Estimated Glomerular Filt Rate > 60; Glucose Random 113 mg/dL (60-115); Phosphorus 2.4 mg/dL (2.7-4.5); Potassium 3.6 mmol/L (3.3-5.1); Sodium 140 mmol/L (135-145)
[2023-08-14] MEDS: Omeprazole 40 MG CAPSULE.DR PO (06:35)
--- NOTE | 2023-08-14 08:13 | PHA.MEDREC ---
Pharmacy Consult ? Medication Reconciliation Pharmacy has completed the medication reconciliation.
[2023-08-14] MEDS: Potassium Phosphate/NS 15 MMOL/250 ML PLAST..BAG 62.5 MMOL IV (08:55)
[2023-08-14] MEDS: 0.9 % Sodium Chloride Flush 3 ML SYRINGE IVFLUSH ×3 (08:57→19:52)
[2023-08-14] MEDS: Nicotine 21 MG PATCH.TD24 TRANSDERMA (09:26)
[2023-08-14] MEDS: Tamsulosin HCL 0.4 MG CAPSULE 0.8 MG PO (09:27)
[2023-08-14] MEDS: Aspirin Enteric Coated 81 MG TABLET.DR PO (09:28)
[2023-08-14] MEDS: Atorvastatin Calcium 10 MG TABLET PO (09:28)
[2023-08-14] MEDS: predniSONE 20 MG TABLET 40 MG PO (09:28)
--- NOTE | 2023-08-14 09:31 | P.PNCC_ITS ---
Subjective Subjective Date of Service: 08/14/23 Interval History: 63-year-old gentleman former 75 pack-year smoker with underlying COPD, peripheral arterial disease, splenic vein thrombosis, AFib, BPH now POD 1 status post elective right SFA-to-pop bypass being monitored in the intensive care unit. No events overnight. Critical Care Time (minutes): 0 Physical Exam 2 Vital Signs: Vital Signs: Last Vital Signs Temp 97.5 F 08/14/23 08:00 Pulse 65 08/14/23 09:00 Resp 18 08/14/23 09:00 BP 121/66 08/14/23 09:00 Pulse Ox 95 08/14/23 09:00 O2 Del Method Room Air 08/14/23 09:00 O2 Flow Rate 2 08/13/23 18:00 BMI result Body Mass Index 24.8 Const: General: no acute distress, alert and awake Eyes: Sclerae: sclerae normal EOM: EOMs intact bilaterally Neck: Neck: Yes no lymphadenopathy, Yes trachea midline and Yes supple Resp: Effort & Inspection: normal respiratory effort and no respiratory distress Auscultation: clear to auscultation bilaterally Cardio: Rate: regular rate Rhythm: regular rhythm Heart sounds: no gallops, no murmurs and no rubs GI: Palpation (GI): Soft to palpation and Other GI palpation findings present ( Nontender) Auscultation: normal bowel sounds Extrem: General: Yes no pedal edema, No clubbing, No cyanosis and Yes other (Right lower extremity surgical sites without hematoma) Objective Data Labs 08/14/23 05:14 08/14/23 05:14 Labs: Laboratory Results - last 24 hr 08/14/23 08/14/23 08/14/23 05:14 05:14 05:14 WBC 10.6 RBC 3.73 L Hgb 12.6 L Hct 36.1 L MCV 96.8 MCH 33.8 H MCHC 34.9 RDW 13.1 Plt Count 215 D MPV 9.6 Immature Gran % (Auto) 0.4 Neut % (Auto) 73.0 Lymph % (Auto) 14.2 L Atkinson % (Auto) 12.0 H Eos % (Auto) 0.3 Baso % (Auto) 0.1 Lymph # (Auto) 1.5 Atkinson # (Auto) 1.3 H Eos # (Auto) 0.0 Baso # (Auto) 0.0 Abs Immat Gran (auto) 0.04 H Absolute Neuts (auto) 7.7 Absolute Nucleated RBC 0.000 Nucleated RBC % (auto) 0.0 Sodium 140 Potassium 3.6 Chloride 107 Carbon Dioxide 27 Anion Gap 10 L BUN 10 Creatinine 0.71 Estim Creat Clear Calc 113.8 Estimated GFR > 60 Random Glucose 113 Calcium 8.5 D Phosphorus 2.4 L Cancelled Magnesium 2.0 Cancelled Progress Note: A&P Assessment and plan (1) Status post femoral-popliteal bypass surgery: Status: Acute (2) COPD (chronic obstructive pulmonary disease): Status: Acute (3) Atrial fibrillation: Status: Acute (4) BPH (benign prostatic hyperplasia): Status: Acute Plan Assessment: 63-year-old gentleman postoperative day 1 status post elective right SFA to pop bypass being monitored in the intensive care unit. Plan: Neuro: No acute issues. Cardiac: Postoperative day 1 after an elective right SFA to pop bypass. Vascular surgery service care appreciated. Maintain SBP under 160. Underlying PVD and AFib. Pulmonary: No acute issues. Underlying COPD. Renal: No acute issues. Endo: No acute issues. GI: No acute issues. ID: No acute issues Heme/Onc: No acute issues. Psych: No acute issues. Miscellaneous: No acute issues. Prophylaxis: Per vascular surgery Diet: Regular Quality Stroke Does the patient have a stroke diagnosis?: No VTE Prior VTE?: No VTE Risk Level:: Surgical - high VTE Device Contraindication: Treatment Not Indicated VTE Drug Contraindication: N/A - Med Ordered
--- NOTE | 2023-08-14 10:09 | MHC.CM.PN ---
Met w/pt to review d/c planning needs: pt resides alone but has adult children who live close and will assist w/pt's post op recovery. Pt drives, has no services or DME. States his HCP is at home. IMM completed: CM to follow for changes in d/c plan: home: no services
[2023-08-14] MEDS: Fluticasone/Vilanterol 200/25 BLST.W.DEV 1 PUFF INHALE (11:23)
--- NOTE | 2023-08-14 12:13 | PC.NURSE ---
ICU transfer to [facility] @ approx. 1200. Patient A&Ox4, pleasant, resting in bed comfortably after transfer, Vitals; T 96.9, R 14, HR 74, BP 122/59, 95% RA. Patient with some pain in right leg, s/p femoral popliteal bypass graft, pt was medicated with prn morphine right before transfer. Positive right popliteal pulse, weak posterier tibial pulse and absent pedal pulse, Dr. Knott aware. Pt is bedrest until further notice, villasenor removed in ICU, DTV by 1730, urinal given to pt.
--- NOTE | 2023-08-14 14:28 | HO.POSTANES ---
Post Anesthesia Evaluation Post Anesthesia Evaluation Date of Service: 08/13/23 Vital Signs: Vital Signs Temp Pulse Resp BP Pulse Ox O2 Del Method 08/14/23 12:03 96.9 F 74 14 122/59 L 95 Room Air 08/14/23 11:37 16 08/14/23 11:24 65 16 08/14/23 10:00 76 15 135/71 93 Room Air 08/14/23 09:00 65 18 121/66 95 Room Air 08/14/23 08:00 97.5 F 65 15 121/60 96 Room Air 08/14/23 07:00 59 20 132/61 95 Room Air 08/14/23 06:00 61 11 L 109/64 96 Room Air 08/14/23 05:00 63 17 119/62 93 Room Air 08/14/23 04:09 15 08/14/23 04:00 65 12 124/63 96 Room Air 08/14/23 03:00 59 17 134/74 93 Room Air Anesthesia: General Mental Status: Awake Pain Control: Satisfactory Nausea/Vomiting: None Hydration: Adequate Anesthesia-Related Issues: No Anes. Related Issues
--- NOTE | 2023-08-14 17:27 | HO.VASCPN ---
Subjective Subjective Date of Service: 08/14/23 Patient reports: no new complaints and feels better Interval history: Postop day 1 status post distal SFA to popliteal bypass. Patient doing well. Pain from operation is present but reports that his leg overall feels better. He is now for postop follow-up. Physical Exam Vital Signs: Vital Signs: Last Vital Signs Temp 97.8 F 08/14/23 16:00 Pulse 74 08/14/23 16:00 Resp 13 08/14/23 16:00 BP 121/59 L 08/14/23 16:00 Pulse Ox 94 08/14/23 16:00 O2 Del Method Room Air 08/14/23 16:00 O2 Flow Rate 2 08/13/23 18:00 BMI result Body Mass Index 24.8 Const: General: cooperative, healthy appearing and no acute distress Orientation/consciousness: oriented to person, oriented to place and oriented to time HEENT: Head: Yes normal to inspection Neck: Carotids: no bruits Chest: Chest palpation & inspection: normal inspection of the chest Resp: Effort & Inspection: normal respiratory effort and able to speak in complete sentences Auscultation: clear to auscultation bilaterally Cardio: Other: Triphasic signal in the popliteal region Rate: regular rate Heart sounds: S1 normal heart sound present and S2 normal heart sound present GI: Inspection: Yes normal to inspection Skin: General skin exam: no rashes or lesions noted Wounds: no wounds Neuro: General: oriented to person, oriented to place, oriented to time and CN's II-XI intact bilaterally Extrem: General: Yes normal to inspection, Yes full ROM and Yes no clubbing, cyanosis or edema Psych: Appearance: grossly normal and well kempt Speech and movement: Normal speech and movement present Affect: normal affect Progress Note: A&P Assessment and plan (1) Peripheral arterial disease: Status: Acute Assessment and Plan: Postop day 1 status post bypass. Patient doing extremely well. Stable for transfer to floor. BLANCA Guidry DC IV fluids. Bedrest for today. Time Spent With Patient Time: Total time managing care of this patient today ____ minutes. Procedures Date of Service Date of Service: 08/14/23 Quality Stroke Does the patient have a stroke diagnosis?: No VTE Prior VTE?: No VTE Risk Level:: Surgical - high VTE Device Contraindication: Treatment Not Indicated VTE Drug Contraindication: N/A - Med Ordered
[2023-08-15] VITALS (7 sets, daily range): BP systolic 131–143; BP diastolic 58–75; PULSE 65–78; RESP 16–18; TEMP 36.1–36.7; O2SAT 94–97
[2023-08-15] MEDS: Morphine Sulfate 2 MG/ML CARTRIDGE IVPUSH (00:07)
[2023-08-15] MEDS: Omeprazole 40 MG CAPSULE.DR PO (04:40)
[2023-08-15] MEDS: Milk of Magnesia 30 ML ORAL.SUSP PO (04:40)
[2023-08-15 06:11] LABS: MANUAL DIFF FLAG NO
[2023-08-15 06:16] LABS: Basophils Percent Auto 0.3 % (0-2); Eosinophils Absolute Auto 0.1 X10*3/uL (0.0-0.4); Eosinophils Percent Auto 0.7 % (0-4); Hemoglobin 13.5 g/dl (14.0-18.0); Imm Gran Abs Auto 0.05 X10*3/uL (0.00-0.03); Imm Gran Pct Auto 0.5 % (0.0-0.4); Lymphocytes Absolute Auto 1.6 X10*3/uL (1.2-4.9); Mean Corpuscular HGB Conc 34.6 g/dl (31.0-36.0); Mean Corpuscular Hemoglobin 33.5 pg (27.0-33.0); Mean Corpuscular Volume 96.8 fL (80.0-98.0); Monocytes Absolute Auto 1.3 X10*3/uL (0.1-1.2); Monocytes Percent Auto 11.7 % (2-11); Neutrophils Absolute Auto 7.7 x10*3/uL (2.0-8.3); Neutrophils Percent Auto 71.8 % (45-73); Platelet Count 213 X10*3/uL (160-400); Red Blood Count 4.03 X10*6/uL (4.60-5.80); White Blood Count 10.8 X10*3/uL (4.8-10.8)
[2023-08-15 06:30] LABS: Anion Gap 9 (12-20); Blood Urea Nitrogen 14 mg/dL (9-16); Carbon Dioxide 28 mmol/L (22-29); Chloride 104 mmol/L (96-108); Creatinine Clr Calc Pharmacy 103.6; Estimated Glomerular Filt Rate > 60; Glucose Random 117 mg/dL (60-115); Phosphorus 2.1 mg/dL (2.7-4.5); Potassium 3.6 mmol/L (3.3-5.1); Sodium 137 mmol/L (135-145)
[2023-08-15] MEDS: Fluticasone/Vilanterol 200/25 BLST.W.DEV 1 PUFF INHALE (08:36)
--- NOTE | 2023-08-15 09:06 | HO.PM.IMPN ---
Subjective Subjective Date of Service: 08/15/23 Review of Systems Follow up vascular consult still feeling pain at surgical site Physical Exam Vital Signs: Vital Signs: Last Vital Signs Temp 98.1 F 08/15/23 07:21 Pulse 65 08/15/23 08:37 Resp 16 08/15/23 08:37 BP 143/68 H 08/15/23 07:21 Pulse Ox 96 08/15/23 07:21 O2 Del Method Room Air 08/15/23 07:21 O2 Flow Rate 2 08/13/23 18:00 BMI result Body Mass Index 24.8 Appearing in no acute distress lung sounds are clear to auscultation heart regular rate rhythm, clear S1, S2 positive bowel sounds, abdomen is soft, nontender neuro patient is alert x3, no focal deficits Objective Data Active Medications Acetaminophen (Acetaminophen 325 Mg Tablet) 650 mg PO Q6H PRN PRN Reason: Pain, Mild (Pain Scale 1-3), fever or headache Last Admin: 08/13/23 21:12 Dose: 650 mg Documented By: BRENNEN Albuterol Sulfate (Albuterol Sulfate 90 Mcg 8 Gm Inhaler) 2 puff INHALE Q4H PRN PRN Reason: shortness of breath or wheezing Aspirin (Aspirin Enteric Coated 81 Mg Tablet.Dr) 81 mg PO DAILY [facility] Last Admin: 08/14/23 09:28 Dose: 81 mg Documented By: CHANDRIKA Atorvastatin Calcium (Atorvastatin Calcium 10 Mg Tablet) 10 mg PO DAILY [facility] Last Admin: 08/14/23 09:28 Dose: 10 mg Documented By: CHANDRIKA Calcium Carbonate (Calcium Carbonate 750 Mg Tab.Chew) 750 mg PO Q4H PRN PRN Reason: Heartburn Fluticasone/Vilanterol (Fluticasone/Vilanterol 200/25 Blst.W.Dev) 1 puff INHALE RDAILY [facility] Last Admin: 08/15/23 08:36 Dose: 1 puff Documented By: LORAINE Magnesium Hydroxide (Milk Of Magnesia 30 Ml Oral.Susp) 30 ml PO DAILY PRN PRN Reason: Constipation Last Admin: 08/15/23 04:40 Dose: 30 ml Documented By: YASEMIN Melatonin (Melatonin 3 Mg Tablet) 6 mg PO BEDTIME PRN PRN Reason: Insomnia Morphine Sulfate (Morphine Sulfate 2 Mg/Ml Cartridge) 2 mg IVPUSH Q4H PRN; Protocol PRN Reason: Pain, Severe (Pain Scale 7-10) Last Admin: 08/15/23 00:07 Dose: 2 mg Documented By: YASEMIN Nicotine (Nicotine 21 Mg Patch.Td24) 21 mg TRANSDERMA DAILY [facility] Last Admin: 08/14/23 09:26 Dose: 21 mg Documented By: CHANDRIKA Omeprazole (Omeprazole 40 Mg Capsule.Dr) 40 mg PO DAILY@0630 [facility] Last Admin: 08/15/23 04:40 Dose: 40 mg Documented By: YASEMIN Oxycodone HCl (Oxycodone Hcl Immed Release 5 Mg Tablet) 5 mg PO Q4H PRN PRN Reason: Pain, Moderate(Pain Scale 4-6) Last Admin: 08/14/23 19:51 Dose: 5 mg Documented By: YASEMIN Prednisone (Prednisone 20 Mg Tablet) 40 mg PO DAILY [facility] Last Admin: 08/14/23 09:28 Dose: 40 mg Documented By: CHANDRIKA Sodium Chloride (0.9 % Sodium Chloride Flush 3 Ml Syringe) 3 ml IVFLUSH QSHIFT [facility] Last Admin: 08/14/23 19:52 Dose: 3 ml Documented By: YASEMIN Tamsulosin HCl (Tamsulosin Hcl 0.4 Mg Capsule) 0.8 mg PO DAILY [facility] Last Admin: 08/14/23 09:27 Dose: 0.8 mg Documented By: CHANDRIKA Labs 08/15/23 05:33 08/15/23 05:33 Labs: Laboratory Results - last 24 hr 08/15/23 05:33 MCV 96.8 MCH 33.5 H MCHC 34.6 RDW 13.0 Plt Count 213 MPV 10.0 Immature Gran % (Auto) 0.5 H Neut % (Auto) 71.8 Lymph % (Auto) 15.0 L [place] % (Auto) 11.7 H Eos % (Auto) 0.7 Baso % (Auto) 0.3 Lymph # (Auto) 1.6 [place] # (Auto) 1.3 H Eos # (Auto) 0.1 Baso # (Auto) 0.0 Abs Immat Gran (auto) 0.05 H Absolute Neuts (auto) 7.7 Absolute Nucleated RBC 0.000 Nucleated RBC % (auto) 0.0 Anion Gap 9 L Estim Creat Clear Calc 103.6 Estimated GFR > 60 Random Glucose 117 H Calcium 9.0 Phosphorus 2.1 L Magnesium 2.0 Assessment and Plan (1) Status post femoral-popliteal bypass surgery: Status: Acute Plan 63-year-old man admitted by vascular surgery and is status post right distal SFA to below-knee popliteal bypass with reverse saphenous vein graft Right distal SFA Management as per vascular team Constipation Will add MiraLax and bisacodyl suppositories as needed COPD No exacerbation Continue albuterol as needed Paroxysmal atrial fibrillation Not on beta-nasrin or anticoagulation On aspirin BPH Continue tamsulosin GERD Continue PPI Hyperlipidemia/PAD Continue aspirin and statin Smoker Discussed importance of smoking cessation NRT DVT prophylaxis with pneumatic compression boots Full code Medical consultation complete. Will sign off Quality Stroke Does the patient have a stroke diagnosis?: No VTE Prior VTE?: No VTE Risk Level:: Surgical - high VTE Device Contraindication: Treatment Not Indicated VTE Drug Contraindication: N/A - Med Ordered
[2023-08-15] MEDS: polyethylene glycoL 3350 17 GM POWD.PACK PO (09:21)
[2023-08-15] MEDS: 0.9 % Sodium Chloride Flush 3 ML SYRINGE IVFLUSH ×3 (09:22→20:12)
[2023-08-15] MEDS: Nicotine 21 MG PATCH.TD24 TRANSDERMA (09:22)
[2023-08-15] MEDS: Atorvastatin Calcium 10 MG TABLET PO (09:22)
[2023-08-15] MEDS: oxyCODONE HCl Immed Release 5 MG TABLET PO ×3 (09:23→20:10)
[2023-08-15] MEDS: Aspirin Enteric Coated 81 MG TABLET.DR PO (09:23)
[2023-08-15] MEDS: Tamsulosin HCL 0.4 MG CAPSULE 0.8 MG PO (09:23)
--- NOTE | 2023-08-15 09:47 | HO.VASCPN ---
Subjective Subjective Date of Service: 08/15/23 Patient reports: no new complaints, feels better and tolerating a regular diet Interval history: Patient is postop day 2 status post right femoral to distal popliteal bypass. Appears to be doing extremely well postop. No interval issues. Tolerating a diet. Only complaints of a little constipation. Physical Exam Vital Signs: Vital Signs: Last Vital Signs Temp 98.1 F 08/15/23 07:21 Pulse 65 08/15/23 08:37 Resp 16 08/15/23 08:37 BP 143/68 H 08/15/23 07:21 Pulse Ox 96 08/15/23 07:21 O2 Del Method Room Air 08/15/23 07:21 O2 Flow Rate 2 08/13/23 18:00 BMI result Body Mass Index 24.8 Const: General: cooperative, healthy appearing and no acute distress Orientation/consciousness: oriented to person, oriented to place and oriented to time HEENT: Head: Yes normal to inspection Neck: Carotids: no bruits Chest: Chest palpation & inspection: normal inspection of the chest Resp: Effort & Inspection: normal respiratory effort and able to speak in complete sentences Auscultation: clear to auscultation bilaterally Cardio: Other: Right popliteal triphasic signal Rate: regular rate Heart sounds: S1 normal heart sound present and S2 normal heart sound present GI: Inspection: Yes normal to inspection Skin: Other: Incisions well healing General skin exam: no rashes or lesions noted Wounds: no wounds Neuro: General: oriented to person, oriented to place, oriented to time and CN's II-XI intact bilaterally Extrem: General: Yes normal to inspection, Yes full ROM and Yes no clubbing, cyanosis or edema Psych: Appearance: grossly normal and well kempt Speech and movement: Normal speech and movement present Affect: normal affect Progress Note: A&P Assessment and plan (1) Peripheral arterial disease: Status: Acute Assessment and Plan: In short patient is doing well status post fem-pop bypass. Will require physical therapy. We will get him out of bed to chair today. Will require additional day or 2 in the hospital as he is not mobile yet. Pain control seems to be an issue. Thank you for the hospitalist assistance in his care. Time Spent With Patient Time: Total time managing care of this patient today ____ minutes. Procedures Date of Service Date of Service: 08/15/23 Quality Stroke Does the patient have a stroke diagnosis?: No VTE Prior VTE?: No VTE Risk Level:: Surgical - high VTE Device Contraindication: Treatment Not Indicated VTE Drug Contraindication: N/A - Med Ordered
--- NOTE | 2023-08-15 12:01 | MHC.CM.PN ---
Addendum entered by Tanya Mccullough RN 08/15/23 14:06: PT rec home w/ services and walker. Patient states one of his adult children will get a walker prior to dc. Prefers [facility]. Referral placed. Original Note: EMR reviewed. Patient not medically cleared for dc at this time. Awaiting PT eval. CM will continue to follow.
[2023-08-16] VITALS (7 sets, daily range): BP systolic 139–148; BP diastolic 67–84; PULSE 68–91; RESP 16–18; TEMP 36–36.5; O2SAT 95–100
[2023-08-16] MEDS: oxyCODONE HCl Immed Release 5 MG TABLET PO ×4 (01:43→19:43)
[2023-08-16] MEDS: Omeprazole 40 MG CAPSULE.DR PO (06:17)
[2023-08-16] MEDS: Nicotine 21 MG PATCH.TD24 TRANSDERMA (08:15)
[2023-08-16] MEDS: Aspirin Enteric Coated 81 MG TABLET.DR PO (08:15)
[2023-08-16] MEDS: predniSONE 20 MG TABLET 40 MG PO (08:15)
[2023-08-16] MEDS: Atorvastatin Calcium 10 MG TABLET PO (08:15)
[2023-08-16] MEDS: Fluticasone/Vilanterol 200/25 BLST.W.DEV 1 PUFF INHALE (08:15)
[2023-08-16] MEDS: Tamsulosin HCL 0.4 MG CAPSULE 0.8 MG PO (08:15)
[2023-08-16] MEDS: 0.9 % Sodium Chloride Flush 3 ML SYRINGE IVFLUSH ×3 (08:18→19:44)
--- NOTE | 2023-08-16 15:59 | P.PNVS_ITS ---
Subjective Subjective Date of Service: 08/16/23 Patient reports: no new complaints and feels better Interval history: Patient is status post right fem-pop bypass. Doing extremely well. Pain appears to be well controlled. He is ambulating significantly better. T olerating regular diet. Did have bowel movement. Physical Exam Vital Signs: Vital Signs: Last Vital Signs Temp 97.7 F 08/16/23 15:37 Pulse 91 08/16/23 15:37 Resp 18 08/16/23 15:37 BP 139/84 08/16/23 15:37 Pulse Ox 95 08/16/23 15:37 O2 Del Method Room Air 08/16/23 15:37 O2 Flow Rate 2 08/13/23 18:00 BMI result Body Mass Index 24.8 Const: General: cooperative, healthy appearing and no acute distress Orientation/consciousness: oriented to person, oriented to place and oriented to time HEENT: Head: Yes normal to inspection Neck: Carotids: no bruits Chest: Chest palpation & inspection: normal inspection of the chest Resp: Effort & Inspection: normal respiratory effort and able to speak in complete sentences Auscultation: clear to auscultation bilaterally Cardio: Rate: regular rate Heart sounds: S1 normal heart sound present and S2 normal heart sound present GI: Inspection: Yes normal to inspection Skin: Other: Right leg incisions healing well General skin exam: no rashes or lesions noted Wounds: no wounds Neuro: General: oriented to person, oriented to place, oriented to time and CN's II-XI intact bilaterally Extrem: General: Yes normal to inspection, Yes full ROM and Yes no clubbing, cyanosis or edema Psych: Appearance: grossly normal and well kempt Speech and movement: Normal speech and movement present Affect: normal affect Progress Note: A&P Assessment and plan (1) Peripheral arterial disease: Status: Acute Assessment and Plan: Patient doing well status post fem-pop bypass. If tolerating well will plan to discharge tomorrow. He does have a son at home which will be able to assist with care. Time Spent With Patient Time: Total time managing care of this patient today ____ minutes. Procedures Date of Service Date of Service: 08/16/23 Quality Stroke Does the patient have a stroke diagnosis?: No VTE Prior VTE?: No VTE Risk Level:: Surgical - high VTE Device Contraindication: Treatment Not Indicated VTE Drug Contraindication: N/A - Med Ordered
[2023-08-16] MEDS: Acetaminophen 325 MG TABLET 650 MG PO (19:41)
[2023-08-17] MEDS: oxyCODONE HCl Immed Release 5 MG TABLET PO ×3 (00:09→09:08)
[2023-08-17 02:56] VITALS: BP 136/78; PULSE 66; RESP 20; TEMP 36.3; O2SAT 97
[2023-08-17] MEDS: Omeprazole 40 MG CAPSULE.DR PO (04:44)
[2023-08-17] MEDS: Acetaminophen 325 MG TABLET 650 MG PO (04:45)
[2023-08-17 07:39] VITALS: BP 144/80; PULSE 59; RESP 12; TEMP 36.2; O2SAT 96
[2023-08-17] MEDS: Fluticasone/Vilanterol 200/25 BLST.W.DEV 1 PUFF INHALE (07:50)
[2023-08-17 07:51] VITALS: PULSE 69; RESP 16; O2SAT 98
[2023-08-17] MEDS: Atorvastatin Calcium 10 MG TABLET PO (09:02)
[2023-08-17] MEDS: Aspirin Enteric Coated 81 MG TABLET.DR PO (09:02)
[2023-08-17] MEDS: Tamsulosin HCL 0.4 MG CAPSULE 0.8 MG PO (09:03)
[2023-08-17] MEDS: predniSONE 20 MG TABLET 40 MG PO (09:03)
[2023-08-17] MEDS: Nicotine 21 MG PATCH.TD24 TRANSDERMA (09:03)
[2023-08-17] MEDS: 0.9 % Sodium Chloride Flush 3 ML SYRINGE IVFLUSH (09:04)
--- NOTE | 2023-08-17 09:23 | PM.DS ---
DS: Providers Provider Date of Service: 08/17/23 Date of admission: 08/13/23 06:16 Primary care physician: Quinton Callahan MD Consults: 08/14/23 09:33 Consult to Hospitalist Routine Comment: Consulting Provider: Hospitalist Reason For Exam: Medical comanagement DS: Diagnosis Discharge Diagnosis (1) Peripheral arterial disease: Status: Acute DS: Summary Hospital Course Hospital Course: Patient underwent fem-pop bypass on SundayAugust 12. Postoperatively was observed in the ICU overnight and postop day 1 was transferred up to the floor. Reports that he was doing fairly well. He was progressing well did experience some lower extremity pain. As the pain did improve he started to work with physical therapy and became more ambulatory. Condition upon discharge was stable. Time Attestation Discharge Coordination Time (in mins): 35 Quality: Safe Use of Opioids Does Pt have an Active Cancer Diagnosis on the Problem List?: No Quality: Stroke Does the patient have a stroke diagnosis?: No Physical Exam Vital Signs: Vital Signs: Last Vital Signs Temp 97.2 F 08/17/23 07:39 Pulse 69 08/17/23 07:51 Resp 16 08/17/23 07:51 BP 144/80 H 08/17/23 07:39 Pulse Ox 96 08/17/23 07:39 O2 Del Method Room Air 08/17/23 07:39 O2 Flow Rate 2 08/13/23 18:00 BMI result Body Mass Index 24.8 Const: General: cooperative, healthy appearing and no acute distress Orientation/consciousness: oriented to person, oriented to place and oriented to time HEENT: Head: Yes normal to inspection Neck: Carotids: no bruits Chest: Chest palpation & inspection: normal inspection of the chest Resp: Effort & Inspection: normal respiratory effort and able to speak in complete sentences Auscultation: clear to auscultation bilaterally Cardio: Rate: regular rate Heart sounds: S1 normal heart sound present and S2 normal heart sound present GI: Inspection: Yes normal to inspection Skin: Other: Right leg incisions healing well General skin exam: no rashes or lesions noted Wounds: no wounds Neuro: General: oriented to person, oriented to place, oriented to time and CN's II-XI intact bilaterally Extrem: General: Yes normal to inspection, Yes full ROM and Yes no clubbing, cyanosis or edema Psych: Appearance: grossly normal and well kempt Speech and movement: Normal speech and movement present Affect: normal affect Discharge Plan Discharge Anticipated Discharge Date/Time: 08/17/23 09:19 Patient Disposition: Home, Self-Care Discharge Diagnosis: This post fem-pop bypass Referrals: [facility] [Outside] - 3-5 Days ([facility] will call you to schedule physical therapy appointments) Quinton Callahan MD [Primary Care Provider] - 1 Week Discharge Medications: New oxycodone-acetaminophen [Percocet] 5-325 mg tablet 1 tab PO TID PRN (Reason: pain) Qty: 20 0RF Rx Instructions: Partial Fill upon patient request. docusate sodium [Colace] 100 mg capsule 100 mg PO BID Qty: 20 0RF Continued nicotine 21 mg/24 hr patch 24 hour 1 patch transdermal DAILY Qty: 28 0RF aspirin [Luis Low Dose Aspirin] 81 mg Tablet,Delayed Release (Dr/Ec) 81 mg PO DAILY tamsulosin 0.4 mg Capsule 0.8 mg PO DAILY pantoprazole 40 mg Tablet,Delayed Release (Dr/Ec) 80 mg PO DAILY@0630 acetaminophen [Tylenol] 325 mg Tablet 975 mg PO TID PRN (Reason: Pain) ibuprofen 200 mg Tablet 400 mg PO Q8H PRN (Reason: Pain) ascorbic acid (vitamin C) [Vitamin C] 500 mg Tablet 500 mg PO DAILY vitamin E 268 mg (400 unit) Capsule 268 mg PO DAILY atorvastatin 10 mg tablet 10 mg PO DAILY albuterol sulfate 90 mcg/actuation HFA aerosol inhaler 2 puff inhalation Q4-6H PRN (Reason: shortness of breath or wheezing) Qty: 1 6RF fluticasone furoate-vilanterol [Breo Ellipta] 200-25 mcg/dose blister with device 1 inh inhalation DAILY Qty: 60 6RF Discontinued tramadol 50 mg tablet 50 mg PO Q6H PRN (Reason: pain) 10 Days Qty: 40 0RF Discharge Orders: Discharge Order (Routine); Ordered 08/17/23 Ordered By: Bimal Knott Diet: Advance to usual diet Activity on Discharge: As tolerated Stand Alone Forms: Patient Portal Discharge page Print Language: Slovak Care Plan Goals: Ambulate better Health Concerns: Peripheral vascular disease Plan of Treatment: Postop care from fem-pop bypass Assessment: Status post fem-pop bypass
--- NOTE | 2023-08-17 09:56 | MHC.CM.PN ---
Patient medically cleared for home w/ services via [facility]. Per PT, patient will need rx for walker. Request sent to MD. Patient's son will transport home ~11am. RN aware. IMM delivered.
[2023-08-17 09:59] VITALS: PULSE 69
--- NOTE | 2023-08-17 10:26 | W.MHC.F2F ---
Service Date Service Date: 08/17/23 Encounter Date of encounter: 08/17/23 Reasons for Services Signs and symptoms assessed: Blood pressure assessment in addition to right lower extremity wound check Reason for retirement: postoperative assessment and/or care Homebound: Leaving the home is medically contraindicated at this time without the asist of a device and/or another person due th the listed conditions above and below. Reason homebound: unsteady gait / fall risk Certification: Based on the above findings, I certify that this patient is confined to the home and needs intermittent retirement care, physical therapy and/or speech therapy, or continues to need occupational therapy. The patient is under my care, and I have initiated the establishment of the plan of care. The patient will be followed by a physician who will periodically review the plan of care. Time Spent With Patient Time: Total time managing care of this patient today ____ minutes.
[2023-08-17] MEDS: polyethylene glycoL 3350 17 GM POWD.PACK PO (10:45)
--- NOTE | 2023-10-07 05:45 | PC.NURSE ---
late entry; 08/17/23 0445, pt c/o pain 09/04. pt requested tylenol and oxycodone for pain. note; tylenol and oxycodone ordred for pain less than 7. pt requested tylenol and oxycondone for pt dc in am. pain meds given with good result.
== END 2023-08-17 11:43 | disposition home health service (06) | DRG 254 ==
LOC: HO.SSSA 06:51 → HO.ICU 13:00 → HO.S3 08-14 09:43
PROVIDERS: Internal Medicine Pulmonary Disease; Admitting Provider Surgery Vascular Surgery; PCP Internal Medicine Medical Oncology; Visit Provider Surgery Vascular Surgery
PROC: 041K09L Bypass Right Femoral Artery to Popliteal Artery with Autologous Venous Tissue, Open Approach (ICD-10-PCS; principal; 2023-08-13 07:30)
DX: I70.221 Atherosclerosis of native arteries of extremities with rest pain, right leg (principal); J44.9 Chronic obstructive pulmonary disease, unspecified; I48.0 Paroxysmal atrial fibrillation; N40.0 Benign prostatic hyperplasia without lower urinary tract symptoms; K59.00 Constipation, unspecified; Z87.891 Personal history of nicotine dependence; Z79.82 Long term (current) use of aspirin; Z79.51 Long term (current) use of inhaled steroids; Z79.899 Other long term (current) drug therapy
CPT/HCPCS: 36415; 80048; 83735; 84100; 85025; 85027; 85610; 85730; 86850; 86900; 86901; 93005; 94640; 97116; 97161; 97530; A4649; C1758; C1889; J0131; J0690; J1100; J1644; J2250; J2270; J2371; J2405; J2704; J2795; J3010

== ENCOUNTER → 2023-08-13 06:16 | Outpatient (BNV) | payer MEDICARE, SELFPAY | PROVIDERS: Admitting Provider Surgery Vascular Surgery; PCP Internal Medicine Medical Oncology; Visit Provider Surgery Vascular Surgery | DX: I73.9 Peripheral vascular disease, unspecified (principal) | CPT/HCPCS: 35556; 99024; G0180 ==

== ENCOUNTER → 2023-08-13 06:16 | Outpatient (BNV) | payer MEDICARE, SELFPAY | PROVIDERS: Admitting Provider Surgery Vascular Surgery; PCP Internal Medicine Medical Oncology; Visit Provider Internal Medicine Pulmonary Disease | DX: I48.91 Unspecified atrial fibrillation (principal); Z95.828 Presence of other vascular implants and grafts; J44.9 Chronic obstructive pulmonary disease, unspecified; N40.0 Benign prostatic hyperplasia without lower urinary tract symptoms | CPT/HCPCS: 99223; 99232 ==

== ENCOUNTER → 2023-08-13 06:16 | Outpatient (BNV) | payer MEDICARE, SELFPAY | PROVIDERS: Admitting Provider Surgery Vascular Surgery; PCP Internal Medicine Medical Oncology; Visit Provider Nurse Practitioner Acute Care | DX: Z95.828 Presence of other vascular implants and grafts (principal) | CPT/HCPCS: 99231 ==

== ENCOUNTER 2023-08-28 10:10 | Outpatient (AMB) | payer MEDICARE, SELFPAY ==
--- NOTE | 2023-08-28 10:15 | A.OFFVIS_ITS ---
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 Pt states he does get mild swelling and some heel numbness and knee pain on Left side. pt states he can lift 20 lbs comfortably Accompanied by: Self / Same As Patient Allergies No Known Allergies Allergy (Verified 08/28/23 10:21) HPI HPI 2 week f/u fem-pop bypass: Details: Very pleasant 63-year-old gentleman presents for follow-up status post right distal SFA to below-knee popliteal bypass with reverse saphenous vein graft. Reports he is doing extremely well postoperatively. He is ambulating at least a block with no significant leg pain. He notes that the toe numbness has resolved. 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 He now presents for routine postprocedure follow-up. [facility] Medical History Arthritis BPH (benign prostatic hyperplasia) Elevated cholesterol S/P angiogram of extremity (07/18/23) Atrial fibrillation History of Palmer's esophagus Splenic vein thrombosis History of femoral angiogram GERD (gastroesophageal reflux disease) COPD (chronic obstructive pulmonary disease) Peripheral arterial disease Surgical History Hx of oral surgery Hx of tracheostomy History of esophagogastroduodenoscopy (EGD) H/O colonoscopy Social History Household Members: None Housing: Apartment Are you a primary respiratory care instructor to a significant other at home: No Do you presently have visiting nurse or other home services: No Patient Tobacco Use Status: Former Tobacco user Tobacco use type: Cigarette Cigarette Packs Per Day: 1 Cigarettes Per Day: 20.0 Years Smoked: 41 e-Cigarette/Vaping Use: Former Use Substance Use Type: Marijuana service: No Review of Systems Const All systems reviewed & are unremarkable except as noted in HPI and below Reports no additional complaints ENT Reports Normal hearing present Card Denies chest pain, Denies chest pain at rest, Denies chest pain with activity and Denies pedal edema Resp Denies cough GI Denies abdominal pain Musc Denies abnormal gait, Denies muscle cramps and Denies radiating pain into limb Skin/Breast Denies skin ulcer and Denies wounds Neuro Reports Normal hearing present and Denies abnormal gait Psych Reports no additional complaints Physical Exam Const General: cooperative, healthy appearing and comfortable Orientation/consciousness: oriented to person, oriented to place and oriented to time HEENT Head: Yes normal to inspection Neck Neck: Yes normal visual inspection Carotids: no bruits Chest Chest palpation & inspection: normal inspection of the chest Resp Effort & Inspection: normal respiratory effort and able to speak in complete sentences Auscultation: clear to auscultation bilaterally, no crackles, no rales, no rhonchi and no wheezes Cardio Other: Right lower extremity popliteal triphasic signals Rate: regular rate Rhythm: regular rhythm Heart sounds: S1 normal heart sound present and S2 normal heart sound present Bruits: no carotid bruits GI Inspection: Yes normal to inspection Skin Other: Right leg incisions well healed Wounds: no wounds Hair: normal Neuro General: oriented to person, oriented to place and oriented to time Cranial nerves: Yes CN's II-XII intact bilaterally and Yes Normal hearing present Cognition (Neuro): normal cognition Motor exam (neuro): 5/5 motor strength present throughout Extrem Other: venous exam: No significant superficial varicosities or spider telangiectasi as, minimal edema General: No clubbing, No cyanosis and No edema Psych Appearance: grossly normal Mental Status: mental status grossly normal Speech and movement: Normal speech and movement present Assessment & Plan Assessment & Plan (1) Peripheral arterial disease: Comment: 06/18/2019 right SFA stent right popliteal plasty 07/18/2023 - diagnostic angiogram 08/13/2023 - right distal SFA to below-knee popliteal bypass with reverse saphenous vein graft Code(s): I73.9 - Peripheral vascular disease, unspecified Category: Medical Plan: In short patient is doing well status post bypass. We did discuss routine risk factor modification and the importance of ambulation. In addition he is on a daily aspirin which will be lifelong for him. I have scheduled him for 3 month arterial surveillance follow-up. Thank you for allowing us to assist in his care. If there are any questions or concerns please do not hesitate to contact us. Orders: Orders US arterial duplex LE BI 3 Months I73.9 - Peripheral vascular disease, unspecified Coding Level of Care Code Global (21398) Diagnoses Peripheral arterial disease I73.9
== END 2023-08-28 10:56 | disposition home or self-care (01) ==
PROVIDERS: PCP Internal Medicine Medical Oncology; Visit Provider Surgery Vascular Surgery
DX: I73.9 Peripheral vascular disease, unspecified (principal)
CPT/HCPCS: 99024

== ENCOUNTER → 2023-08-28 10:10 | Outpatient (BNVA) | payer MEDICARE, SELFPAY | PROVIDERS: PCP Internal Medicine Medical Oncology; Visit Provider Surgery Vascular Surgery | DX: I73.9 Peripheral vascular disease, unspecified (principal); Z95.820 Peripheral vascular angioplasty status with implants and grafts | CPT/HCPCS: 99212 ==

== ENCOUNTER 2023-09-17 15:55 | Emergency (ER) | payer MEDICARE, SELFPAY ==
--- NOTE | ~2023-09-17 | US_ITS ---
EXAMINATION: US VENOUS ULTRASOUND WITH DOPPLER LOWER EXTREMITY, RIGHT CLINICAL INFORMATION: Pain and swelling COMPARISON: None available. TECHNIQUE: Ultrasound of the deep veins is performed from the hip to the calf with compression sonography and color and pulse Doppler assessment. Spectral analysis with color-flow imaging is performed. FINDINGS: There is normal venous compression and respiratory variation and augmented flow. The visualized common femoral vein, superficial femoral vein, profunda femoral vein, popliteal vein, and the trifurcation region shows no evidence of deep venous thrombosis. In the medial right calf proximally, there is a 5.3 x 2.3 x 3.2 cm cystic structure. US/US venous duplex LE RT IMPRESSION: 1. No evidence of deep vein thrombosis in the right femoral-popliteal system. 2. Cystic structure in the medial proximal right calf, perhaps a dissected or ruptured Santoro cyst. Clinical follow-up and management recommended.
[2023-09-17 17:37] VITALS: BP 128/77; PULSE 76; RESP 17; TEMP 36.4; O2SAT 98; BMI 26.1
--- NOTE | 2023-09-17 17:38 | ED_ITS ---
HPI - General Adult General Chief complaint: General Medical Stated complaint: surgical site infection Time Seen by Provider: 09/17/23 20:22 Source: patient Mode of arrival: ambulatory Limitations: no limitations History of Present Illness ED Provider: oracio RAMOS narrative: Patient with status post CABG 08/10 after removal of the lazarus from the right lower extremity venous graft noticed slight opening of the wound about 2 weeks ago was seen at urgent care center 2 days ago and started on p.o. cephalexin today noticed little increased purulent discharge and slight redness around it no fever Related Data Home Medications ?Medication ?Instructions ?Recorded ?Confirmed aspirin 81 mg tablet,delayed 81 mg PO DAILY 01/12/20 08/14/23 release (Luis Low Dose Aspirin) pantoprazole 40 mg tablet,delayed 80 mg PO DAILY@0630 01/12/20 08/14/23 release tamsulosin 0.4 mg capsule 0.8 mg PO DAILY 01/12/20 08/14/23 atorvastatin 10 mg tablet 10 mg PO DAILY 05/04/20 08/14/23 acetaminophen 325 mg tablet 975 mg PO TID PRN Pain 08/03/23 08/14/23 (Tylenol) ibuprofen 200 mg tablet 400 mg PO Q8H PRN Pain 08/03/23 08/13/23 ascorbic acid (vitamin C) 500 mg 500 mg PO DAILY 08/14/23 08/14/23 tablet (Vitamin C) vitamin E 268 mg (400 unit) capsule 268 mg PO DAILY 08/14/23 08/14/23 Previous Rx's ?Medication ?Instructions ?Recorded albuterol sulfate 90 mcg/actuation 2 puff inhalation Q4-6H PRN 08/07/23 aerosol inhaler shortness of breath or wheezing #1 ea fluticasone furoate 200 1 inh inhalation DAILY #60 ea 08/07/23 mcg-vilanterol 25 mcg/dose inhalation powder (Breo Ellipta) nicotine 21 mg/24 hr daily 1 patch transdermal DAILY #28 ea 08/10/23 transdermal patch docusate sodium 100 mg capsule 100 mg PO BID #20 caps 08/17/23 (Colace) oxycodone-acetaminophen 5 mg-325 1 tab PO TID PRN pain #20 tabs 08/17/23 mg tablet (Percocet) doxycycline hyclate 100 mg tablet 100 mg PO BID #20 tabs 09/17/23 mupirocin 2 % topical ointment 1 appl topical TID #22 grams 09/17/23 Allergies Allergy/AdvReac Type Severity Reaction Status Date / Time No Known Allergies Allergy Verified 09/17/23 17:47 Review of Systems 2 Review of Systems: Yes all other systems are reviewed and are negative [facility] Past Medical History Medical History Arthritis BPH (benign prostatic hyperplasia) Elevated cholesterol S/P angiogram of extremity (07/18/23) Atrial fibrillation History of Palmer's esophagus Splenic vein thrombosis History of femoral angiogram GERD (gastroesophageal reflux disease) COPD (chronic obstructive pulmonary disease) Peripheral arterial disease Surgical History Hx of oral surgery Hx of tracheostomy History of esophagogastroduodenoscopy (EGD) H/O colonoscopy Social History Social History Household Members: None Housing: Apartment Are you a primary pharmacy customer care specialist to a significant other at home: No Do you presently have visiting nurse or other home services: No Patient Tobacco Use Status: Former Tobacco user Tobacco use type: Cigarette Cigarette Packs Per Day: 1 Cigarettes Per Day: 20.0 Years Smoked: 41 e-Cigarette/Vaping Use: Former Use Substance Use Type: Marijuana Advance Directives: No Advance Directives Information Provided: No Do you have a plan to hurt others: No Plan service: No Physical Exam ED Vital Signs: Vital Signs - 24 hr 09/17/23 17:37 09/17/23 20:22 09/17/23 21:05 Temperature 97.6 F 98 F 98 F Pulse Rate 76 77 77 Respiratory Rate 17 20 20 Blood Pressure 128/77 147/91 H 147/91 H Pulse Oximetry 98 98 98 Oxygen Delivery Method Room Air Room Air Room Air BMI result Body Mass Index 26.1 Extrem Upper/lower leg/hip images: 2 1. About 1 inch open wound of the lower end of venous graft right leg with purulent base no calf tenderness Homans sign negative no abscess palpable Course Course Course Narrative: This is an RME: Additional HPI, ROS, PE not included below will be deferred to primary provider. RME assessment and note performed by: Maria Ines Easton PA-C This is a 89-[id number]-male, with a hx of BPH, atrial fibrillation, GERD, COPD, and recent bypass surgery by Dr. Knott on 08/12, who presents to the ER with complaints of right lower extremity redness and swelling. Reports sunday he was seen at urgent care on sunday and was started on cephalexin, went back today and was told that the area is worse and needed to report to the ER. Surgical wound with wound dehisence noted with yellow/purulent drainage. No fevers. Plan: labs, US Medications Administered Discontinued Medications Generic Name Dose Route Start Last Admin Trade Name Freq PRN Reason Stop Dose Admin Doxycycline Monohydrate 100 mg 09/17/23 20:55 09/17/23 21:01 Doxycycline Monohydrate 100 Mg Capsule PO 09/17/23 20:56 100 mg ONCE ONE Administration Medical Decision Making Medical Decision Making [facility] Narrative: Patient had small dehiscence of surgical wound right leg had workup done prior to my evaluation including venous Doppler which was negative for DVT normal white counts patient is started on cephalexin will add doxycycline wound was cleaned using peroxide and iodoform gauze was placed with dressing Lab Data [facility] Lab Attestation statement: I reviewed the patient's lab results. 09/17/23 18:59 09/17/23 18:59 Labs: Lab Results 09/17/23 Range/Units 18:59 WBC 8.4 (4.8-10.8) X10*3/uL RBC 4.29 L (4.60-5.80) X10*6/uL Hgb 14.6 (14.0-18.0) g/dl Hct 43.2 (42.0-52.0) % MCV 100.7 H (80.0-98.0) fL MCH 34.0 H (27.0-33.0) pg MCHC 33.8 (31.0-36.0) g/dl RDW 12.3 (11.0-16.0) % Plt Count 254 (160-400) X10*3/uL MPV 9.6 (9.4-12.4) fL Immature Gran % (Auto) 0.4 (0.0-0.4) % Neut % (Auto) 66.6 (45-73) % Lymph % (Auto) 19.5 L (20-40) % [place] % (Auto) 10.1 (2-11) % Eos % (Auto) 2.7 (0-4) % Baso % (Auto) 0.7 (0-2) % Lymph # (Auto) 1.6 (1.2-4.9) X10*3/uL [place] # (Auto) 0.9 (0.1-1.2) X10*3/uL Eos # (Auto) 0.2 (0.0-0.4) X10*3/uL Baso # (Auto) 0.1 (0.0-0.2) X10*3/uL Abs Immat Gran (auto) 0.03 (0.00-0.03) X10*3/uL Absolute Neuts (auto) 5.6 (2.0-8.3) x10*3/uL Absolute Nucleated RBC 0.000 (0.0-0.012) X10*3/uL Nucleated RBC % (auto) 0.0 (0.0-0.2) /100WBC Sodium 143 (135-145) mmol/L Potassium 3.9 (3.3-5.1) mmol/L Chloride 108 (96-108) mmol/L Carbon Dioxide 26 (22-29) mmol/L Anion Gap 13 (12-20) BUN 23 H (9-16) mg/dL Creatinine 1.09 (0.5-1.4) mg/dL Estim Creat Clear Calc 74.1 Estimated GFR > 60 Random Glucose 86 (60-115) mg/dL Calcium 9.6 D (8.4-10.2) mg/dL Total Bilirubin 0.4 (0.0-1.0) mg/dL Direct Bilirubin 0.1 (0.0-0.5) mg/dL AST 21 (5-37) U/L ALT 18 (0-40) U/L Alkaline Phosphatase 78 (39-117) U/L Total Protein 7.0 (6.5-8.0) g/dL Albumin 4.1 (3.5-5.0) g/dL Independent Interpretation I performed an independent interpretation of an: Ultrasound Radiology Impression Discussion of test interpretation with radiology: I have reviewed the radiologist's reading. Discharge Plan Discharge Clinical Impression: Infected surgical wound Patient Disposition: Home, Self-Care Instructions: Surgical Site Infections (ED) Additional Instructions: Local care as advised Apply mupirocin ointment twice a day and use peroxide to clean Continue cephalexin will add doxycycline in the regime Follow up with PCP if not better//recheck wound in 2-3 days Prescriptions: New doxycycline hyclate 100 mg tablet 100 mg PO BID Qty: 20 0RF mupirocin 2 % ointment 1 appl topical TID Qty: 22 0RF No Action nicotine 21 mg/24 hr patch 24 hour 1 patch transdermal DAILY Qty: 28 0RF aspirin [Luis Low Dose Aspirin] 81 mg Tablet,Delayed Release (Dr/Ec) 81 mg PO DAILY tamsulosin 0.4 mg Capsule 0.8 mg PO DAILY pantoprazole 40 mg Tablet,Delayed Release (Dr/Ec) 80 mg PO DAILY@0630 acetaminophen [Tylenol] 325 mg Tablet 975 mg PO TID PRN (Reason: Pain) ibuprofen 200 mg Tablet 400 mg PO Q8H PRN (Reason: Pain) ascorbic acid (vitamin C) [Vitamin C] 500 mg Tablet 500 mg PO DAILY vitamin E 268 mg (400 unit) Capsule 268 mg PO DAILY oxycodone-acetaminophen [Percocet] 5-325 mg tablet 1 tab PO TID PRN (Reason: pain) Qty: 20 0RF Rx Instructions: Partial Fill upon patient request. docusate sodium [Colace] 100 mg capsule 100 mg PO BID Qty: 20 0RF atorvastatin 10 mg tablet 10 mg PO DAILY albuterol sulfate 90 mcg/actuation HFA aerosol inhaler 2 puff inhalation Q4-6H PRN (Reason: shortness of breath or wheezing) Qty: 1 6RF fluticasone furoate-vilanterol [Breo Ellipta] 200-25 mcg/dose blister with device 1 inh inhalation DAILY Qty: 60 6RF Interventions: ED Discharge Assessment Last Done: 09/17/23 21:05 Discharge Date/Time: 09/17/23 21:06 Print Language: [place]an
[2023-09-17 19:14] LABS: MANUAL DIFF FLAG NO
[2023-09-17 19:15] LABS: Basophils Absolute Auto 0.1 X10*3/uL (0.0-0.2); Basophils Percent Auto 0.7 % (0-2); Eosinophils Absolute Auto 0.2 X10*3/uL (0.0-0.4); Eosinophils Percent Auto 2.7 % (0-4); Hematocrit 43.2 % (42.0-52.0); Hemoglobin 14.6 g/dl (14.0-18.0); Imm Gran Abs Auto 0.03 X10*3/uL (0.00-0.03); Imm Gran Pct Auto 0.4 % (0.0-0.4); Lymphocytes Absolute Auto 1.6 X10*3/uL (1.2-4.9); Lymphocytes Percent Auto 19.5 % (20-40); Mean Corpuscular HGB Conc 33.8 g/dl (31.0-36.0); Mean Corpuscular Volume 100.7 fL (80.0-98.0); Mean Platelet Volume 9.6 fL (9.4-12.4); Monocytes Absolute Auto 0.9 X10*3/uL (0.1-1.2); Monocytes Percent Auto 10.1 % (2-11); Neutrophils Absolute Auto 5.6 x10*3/uL (2.0-8.3); Neutrophils Percent Auto 66.6 % (45-73); Platelet Count 254 X10*3/uL (160-400); Red Blood Count 4.29 X10*6/uL (4.60-5.80); Red Cell Distribution Width 12.3 % (11.0-16.0); White Blood Count 8.4 X10*3/uL (4.8-10.8)
[2023-09-17 19:30] LABS: Alanine Aminotransferase 18 U/L (0-40); Albumin Level 4.1 g/dL (3.5-5.0); Alkaline Phosphatase 78 U/L (39-117); Anion Gap 13 (12-20); Aspartate Amino Transferase 21 U/L (5-37); Bilirubin Direct 0.1 mg/dL (0.0-0.5); Bilirubin Total 0.4 mg/dL (0.0-1.0); Blood Urea Nitrogen 23 mg/dL (9-16); Calcium 9.6 mg/dL (8.4-10.2); Carbon Dioxide 26 mmol/L (22-29); Chloride 108 mmol/L (96-108); Creatinine Clr Calc Pharmacy 74.1; Estimated Glomerular Filt Rate > 60; Glucose Random 86 mg/dL (60-115); Potassium 3.9 mmol/L (3.3-5.1); Sodium 143 mmol/L (135-145)
[2023-09-17 20:22] VITALS: BP 147/91; PULSE 77; RESP 20; TEMP 36.6; O2SAT 98
--- NOTE | 2023-09-17 20:23 | PC.NURSE ---
Pt had quad bypass on 08/12 of his right leg, pt reporting he has not told Dr. Knott of current issues but there is a spot on his lowest incision of 7 lazarus that dehist pt has greenish discharge coming from incision. Pt noted to have redness/swelling/pain. PT reporting this started sunday he was seen at started on 2 PO antibiotics of which he has taken multiple doses but the redness is worsening. Denies fevers/n.v/d/sob/cp.
--- OUTSIDE RECORDS SUMMARY | 2023-09-17 20:26 | XMS_ITS ---
Author Organization Quinton Callahan III, MD Address [address] [address] Care Team Providers Care Educational Guidance Counselor Name Role Phone Quinton Callahan Primary Care Provider REASON FOR VISIT Message Encounters Encounter Location Date Provider Diagnosis Quinton Callahan III, MD [address] [place] [address] [place] [address] 08/20/2023 Quinton Callahan PLAN OF TREATMENT Next Appt Details Provider Name:Quinton Callahan, 10/15/2023 11:00:00 AM, [address] [place] [address] [place], [address],
--- OUTSIDE RECORDS SUMMARY | 2023-09-17 20:26 | XMS_ITS ---
Author Organization Quinton Callahan III, MD Address [address] [place] [address] Care Team Providers Care Septic Tank Installer Name Role Phone Quinton Callahan Primary Care Provider ALLERGIES Allergen (clinical drug ingredient) Drug/Non Drug Allergy documented on EMR Reaction Allergy Type Onset Date Status No Known Drug Allergy Unknown Drug Allergy Active REASON FOR VISIT Benign prostatic hypertrophy, Bariatrics esophagus, COPD, Umbilical hernia, Carpal tunnel syndrome,Tobacco dependence, Peripheral arterial disease, Hyperlipidemia, Back pain MEDICATIONS Medication SIG (Take, Route, Frequency, Duration) Notes Start Date End Date Status Tamsulosin HCl 0.4 MG Take 2 capsules by mouth once daily Active Pantoprazole Sodium 40 MG Take 2 tablets by mouth once daily Active Atorvastatin Calcium 10 MG Take 1 tablet by mouth once daily Active Tylenol 325 MG 1 tablet as needed O rally every 4 hrs Active ibuprofen 1 tab Oral Active ASA 1 tab Oral Active Albuterol Sulfate HFA 108 (90 Base) MCG/ACT INHALE 2 PUFFS BY MOUTH EVERY 4 TO 6 HOURS NEEDED FOR SHORTNESS OF BREATH OR WHEEZING Inhalation Active Breo Ellipta 200-25 MCG/ACT INHALE 1 PUF F BY MOUTH ONCE DAILY Inhalation Active SOCIAL HISTORY Tobacco Use: Social History [...] User Modera te cigarette smoker (10-19 cigs/day) VITAL SIGNS BMI 25.72 kg/m2 08/27/2023 Blood pressure systolic 109 mm Hg 08/27/19 24 Blood pressure diastolic 66 mm Hg 024 Heart Rate 68 /min 08/27/2023 Height 73 in 08/27/2023 Temperature 98.1 degrees Fahrenheit 08/27/19 24 Weight 195 lbs 08/27/2023 Encounters Encounter Location Date Provider Diagnosis Quinton Callahan III, MD [address] [place] [address] [place] [address] 08/27/2023 Quinton Callahan Peripheral arterial disease I73.9 ; Benign prostatic hyperplasia with lower urinary tract symptoms N40.1 ; Palmer's esophagus determined by endoscopy K22.70 ; Chronic obstructive pulmonary disease, unspecified COPD type J44.9 ; Overweight E66.3 ; Tobacco dependence F17.200 and Mixed hyperlipidemia E78.2 ASSESSMENTS Encounter Date Diagnosis Assessment Notes Treatment Notes Treatment Clinical Notes 08/27/2023 Peripheral arterial disease (ICD-10 - I73.9) His recent surgery was successful and the wound is healing well. He reports an absence of pain in the right foot at rest and a greater ability to walk without pain. 08/27/2023 Benign prostatic hyperplasia with lower urinary tract symptoms (ICD-10 - N40.1) The tamsulosin was continued today. He will notify me if his symptoms worsen. He has had no retention. He has symptoms of prostatism. 08/27/2023 Palmer's esophagus determined by endoscopy (ICD-10 - K22.70) He is due for an endoscopy and was referred back to his quality compliance consultant, Dr. uQinton Campos. 08/27/2023 Chronic obstructive pulmonary disease, unspecified COPD type (ICD-10 - J44.9) He has resumed smoking 5 cigarettes per day. He was counseled about this and made aware of the smoking cessation programs in the area. 08/27/2023 Overweight (ICD-10 - E66.3) His body mass index is 29. We discussed diet and nutrition. I recommended aggressive weight loss and sodium restriction. 08/27/2023 Tobacco dependence (ICD-10 - F17.200) I have counseled him about smoking cessation and offered to refer him to smoking cessation programs in the community. He said he would consider this and try to cut down. 08/27/2023 Mixed hyperlipidemia (ICD-10 - E78.2) A comprehensive laboratory database with a fasting lipid profile will be obtained. He was continued on his currrent meddications. PLAN OF TREATMENT Medication Medication Name Sig Start Date Stop Date Notes Tamsulosin HCl 0.4 MG Take 2 capsules by mouth once daily Pantoprazole Sodium 40 MG Take 2 tablets by mouth once daily Atorvastatin Calcium 10 MG Take 1 tablet by mouth once daily Tylenol 325 MG 1 tablet as needed O rally every 4 hrs ibuprofen 1 tab Oral ASA 1 tab Oral Albuterol Sulfate HFA 108 (9 0 Base) MCG/ACT INHALE 2 PUFFS BY MOUTH EVERY 4 TO 6 HOURS NEEDED FOR SHORTNESS OF BREATH OR WHEEZING Inhalation Breo Ellipta 200-25 MCG/ACT INHALE 1 PUF F BY MOUTH ONCE DAILY Inhalation Next Appt Details Follow Up: As Scheduled, Bailey son: Annual Exam, OV Provider Name:Quinton Callahan, 10/15/2023 11:00:00 AM, [address] [place] [address] [address], [place] [address], [place], [address], Progress Notes * Examination Category Sub-Category Detail Notes General Examination GENERAL APPEARANCE: pleasant , well nourished, well developed, in no acute distress, calm and relaxed , overweight , man HEAD: atraumatic, normocep halic EYES: eomi, perrla, anicte severiano, conjugate EARS: normal NOSE: septum intact NECK/THYROID: no jugular venous di stention, no carotid bruit, thyroid normal HEART: no clicks, gallops, murmurs, or rubs, regular rhythm, S1, S2 normal, no s3, or vascular bruits LUNGS: clear to auscultatio n ABDOMEN: bowel sounds normal, no ascites, no organomegaly, no mass , overweight NEUROLOGIC: alert and oriented, cranial nerves 2-12 grossly intact, deep tendon reflexes 2+ symmetrical, motor strength normal upper and lower extremities, sensory exam intact SKIN: no suspicious lesion s, anicteric PERIPHERAL PULSES: normal BREASTS: no masses palpable b ilaterally MUSCULOSKELETAL: extremities unremark able, no clubbing, cyanosis or edema, Several surgical incisions right thigh and lower right leg with lazarus remaining and no sign of infection healing well LYMPH NODES: no enlarged lymph no pinky,spleen normal RECTAL EXAM: not examined PSYCH: alert, oriented ORAL CAVITY: normal, unremarkable History and Physical Notes * HPI (History of Present Illness) Category Sub-Category Detail Notes COVID-19 Screening Questions Have you expe rienced fever, chills, cough, sore throat, shortness of breath, difficulty breathing, muscle aches, loss of taste or smell?: No Have you been exposed to the virus with n the last 10 days?: No Have you travelled internationally in [facility] last 10 days?: No Have you been exposed to COVID-19 in the past?: No
--- OUTSIDE RECORDS SUMMARY | 2023-09-17 20:26 | XMS_ITS ---
Author Organization Quinton Callahan III, MD Address [address] [place] [address] Care Team Providers Care Organ Grinder Name Role Phone Quinton Callahan Primary Care Provider REASON FOR VISIT Verbal Orders Encounters Encounter Location Date Provider Diagnosis Quinton Callahan III, MD [address] [place] [address] [place] [address] 08/16/2023 Quinton Callahan PLAN OF TREATMENT Next Appt Details Provider Name:Quinton Callahan, 10/15/2023 11:00:00 AM, [address] [place] [address] [place], [address],
--- OUTSIDE RECORDS SUMMARY | 2023-09-17 20:27 | XMS_ITS ---
Author Organization [facility] Address [address] [place] [address] Care Team Providers Care Process Control Manager Name Role Phone Quinton Callahan MD Primary Care Provider Unavailab Quinton Alvarez Unavailable [phone] REASON FOR VISIT Patient presents today for EGD, NUGENT'S ESOPHAGUS Encounters Encounter Location Date Provider Diagnosis [facility] [address] [place] [address] 08/14/2023 Quinton Campos PLAN OF TREATMENT No Information
--- OUTSIDE RECORDS SUMMARY | 2023-09-17 20:27 | XMS_ITS | Patient Health Record ---
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 Name Role Phone Quinton Callahan Primary Care Provider ALLERGIES Allergen (clinical drug ingredient) Drug/Non Drug Allergy documented on EMR Reaction Allergy Type Onset Date Status No Known Drug Allergy Unknown Drug Allergy Active RESULTS Component Value Reference Range Notes Lipid Panel Reviewed date:04/15/2023 10:17:38 AM Interpretation: Performing Lab:[facility], [address] [place] [phone] Notes/Report: Triglycerides 72 <150 mg/dL Desirable Triglyceride: [...] ff Reviewed date:04/15/2023 10:17:38 AM Interpretation: Performing Lab:[facility], [address] [place] [phone] Notes/Report: White Blood Count 5.9 4.8-10.8 X10*3/uL [...] NRBC Abs Auto 0.000 0.0-0.012 X10*3/uL Comprehensive [place]. Panel Fa st Reviewed date:04/15/2023 10:17:38 AM Interpretation: Performing Lab:[facility], [address] [place] [phone] Notes/Report: Sodium 140 135-145 mmol/L Potassium 4.3 3.3-5.1 mmol/L Chloride 105 96-108 mmol/L Carbon Dioxide 28 22-29 mmol/L Anion Gap 11 12-20 Blood Urea Nitrogen 16 9-16 mg/dL Creatinine 1.00 0.5-1.4 mg/dL Estimated Glomerular Filt Rate > 60 NOTE: For -[place] individuals, multiply the result by 1.210. Chronic [...] Antigen Reviewed date:04/15/2023 10:17:38 AM Interpretation: Performing Lab:[facility], [address] [place] [phone] Notes/Report: Prostate Specific Antigen 1.08 <0.05-4.0 ng/mL PSA methodology: Mehta Alinity i Chemiluminescent Microparticle Immunoassay (CMIA) XR lumbar spine 4V min Reviewed date:04/15/2023 10:17:38 AM Interpretation: Performing Lab: Notes/Report: [address] [address] XRay Report Signed Patient: Zan Encinas MR#: [id number] : 1960 Acct:[id number] Age/Sex: 63 / M ADM Date: 04/11/23 Loc: HO.TRISTEN Attending Dr: Quinton Callahan MD Ordering Physician: Quinton Callahan MD Date of Service: 04/11/23 Procedure(s): XR lumbar spine 4V min Accession Number(s): [id number] cc: Quinton Callahan MD EXAMINATION: XR LUMBOSACRAL [...] in OV> 04/11/23 1527 DD/ 0942 TD/TT: Econometrician: US VANCE complete Reviewed date:05/12/2023 06:32:45 AM Interpretation: Performing Lab: Notes/Report: [address] [address] Ultrasound Report Signed Patient: Zan Encinas MR#: [id number] : 1960 Acct:[id number] Age/Sex: 63 / M ADM Date: 05/10/23 Loc: .US Attending Dr: Bimal Knott MD Ordering Physician: Bimal Knott MD Date of Service: 05/10/23 Procedure(s): US VANCE complete Accession Number(s): [id number] cc: Quinton Callahan MD; Bimal Knott MD [...] in OV> 05/10/23 1114 DD/ 0949 TD/TT: Econometrician: US arterial duplex LE BI Reviewed date:05/12/2023 06:32:45 AM Interpretation: Performing Lab: Notes/Report: [address] [address] Ultrasound Report Signed Patient: Zan Encinas MR#: [id number] : 1960 Acct:[id number] Age/Sex: 63 / M ADM Date: 05/10/23 Loc: . Attending Dr: Bimal Knott MD Ordering Physician: Bimal Knott MD Date of Service: 05/10/23 Procedure(s): US arterial duplex LE BI Accession Number(s): [id number] cc: Quinton Callahan MD; Bimal Knott MD [...] in OV> 05/10/23 1114 DD/ 0949 TD/TT: Econometrician: Blood Urea Nitrogen Reviewed date:06/18/2023 01:31:54 PM Interpretation: Performing Lab:[facility], [address] [place] [phone] Notes/Report: Blood Urea Nitrogen 12 9-16 mg/dL Creatinine Reviewed date:06/18/2023 01:31:54 PM Interpretation: Performing Lab:[facility], [address] [place] [phone] Notes/Report: Creatinine 0.74 0.5-1.4 mg/dL Estimated Glomerular Filt Rate > 60 NOTE: For -[place] individuals, multiply the result by 1.210. Chronic Kidney Disease: Estimated GFR < 60 mL/min/1.73m2 Severe Kidney Disease: Estimated GFR < 15 mL/min/1.73m2 CT angio abd aorta runoff Reviewed date:07/03/2023 10:30:19 AM Interpretation: Performing Lab: Notes/Report: [address] [address] [address] Scan Report Signed Patient: Zan Encinas MR#: [id number] : 1960 Acct:[id number] Age/Sex: 63 / M ADM Date: 06/28/23 Loc: .CT Attending Dr: Bimal Knott MD Ordering Physician: Bimal Knott MD Date of Service: 06/28/23 Procedure(s): CT angio abd aorta runoff Accession Number(s): [id number] cc: Quinton Callahan MD; Bimal Knott MD STUDY PERFORMED: CTA ABDOMEN, PELVIS AND LOWER EXTREMITY RUNOFF WITH CONTRAST HISTORY: Reason for Exam I73.9 - Peripheral vascular disease, unspecified DESCRIPTION: Routine abdominal aorta and lower extremity runoff CTA protocol with contrast was performed. 100 mL of Omnipaque was administered. 3D POSTPROCESSING: Multiple 3-D angiographic images were processed from the initial data set by the [facility] 3D [facility] under concurrent physician supervision. [...] in OV> 07/02/23 1003 DD/ 0900 TD/TT: Econometrician: Complete Blood Count Auto Di ff Reviewed date:07/24/2023 09:31:57 AM Interpretation: Performing Lab:[facility], [address] [place] [phone] Notes/Report: White Blood Count 7.7 4.8-10.8 X10*3/uL [...] Nitrogen Reviewed date:07/24/2023 09:31:57 AM Interpretation: Performing Lab:[address] [address] Notes/Report: Blood Urea Nitrogen 22 9-16 mg/dL Creatinine Reviewed date:07/24/2023 09:31:57 AM Interpretation: Performing Lab:[address] [address] Notes/Report: Creatinine 0.92 0.5-1.4 mg/dL Creatinine Clr Calc Pharmacy 87.8 eGFR (calculated from the MDRD study equation) and eCrCl (calculated from the Cockcroft-Gault equation) are based on different parameters and may not yield comparable results. If eCrCl result is absurd, please check patient's height/weight. Estimated Glomerular Filt Rate > 60 NOTE: For -[place] individuals, multiply the result by 1.210. Chronic Kidney Disease: Estimated GFR < 60 mL/min/1.73m2 Severe Kidney Disease: Estimated GFR < 15 mL/min/1.73m2 Type and Screen Reviewed date:08/04/2023 05:32:19 AM Interpretation: Performing Lab:[address] [phone] Notes/Report: Spec expiration changed by BELLO on 08/03/23 Reason: PAT NURSING: Call Blood Bank (ext. [phone]) to band patient on admission. Type and Screen in effect until 2300 on 08/13/2023. Witnessed by HUSSEIS Blood Type OP Antibody Screen NEGATIVE XR chest 2V Reviewed date:08/28/2023 05:01:16 AM Interpretation: Performing Lab: Notes/Report: [address] [address] XRay Report Signed Patient: Zan Encinas MR#: [id number] : 1960 Acct:[id number] Age/Sex: 63 / M ADM Date: 08/07/23 Loc: MIAN Attending Dr: Aleksandra Archuleta NP Ordering Physician: Aleksandra Archuleta NP Date of Service: 08/07/23 Procedure(s): XR chest 2V Accession Number(s): [id number] cc: Quinton Callahan MD; Aleksandra Archuleta NP EXAMINATION: XR CHEST CLINICAL INFORMATION: Nicotine, cigarettes uncomplicated. COMPARISON: October 15, 2018 TECHNIQUE: 2 views of the chest were obtained. FINDINGS: The lungs are well inflated. There is no gross pneumothorax. Heart size is normal. No pleural effusion. No new focal consolidation to suggest pneumonia. Degenerative changes in the thoracic spine. XR/XR chest 2V IMPRESSION: No evidence of pneumonia. LDCT should be considered for this patient with history of tobacco abuse. Dictated By: Yudy Simon MD Signed By: <Electronically signed by Yudy Simon MD in OV> 08/20/23 0929 DD/ 1250 TD/TT: Econometrician: JESUS gosia perf SPECT rest & str Reviewed date:08/11/2023 05:22:23 AM Interpretation: Performing Lab: Notes/Report: [address] [address] Nuclear Medicine Report Signed Patient: Zan Encinas MR#: [id number] : 1960 Acct:[id number] Age/Sex: 63 / M ADM Date: 08/09/23 Loc: CARD Attending Dr: Khalif Ferrer MD Ordering Physician: Khalif Ferrer MD Date of Service: 08/09/23 Procedure(s): NM gosia perf SPECT rest str Accession Number(s): [id number] cc: Quinton Callahan MD; Khalif Ferrer MD [...] in OV> 08/10/23 1257 DD/ 1120 TD/TT: Econometrician: venous duplex MACARENA RT Reviewed date:08/11/2023 05:22:23 AM Interpretation: Performing Lab: Notes/Report: [address] [address] Ultrasound Report Signed Patient: Zan Encinas MR#: [id number] : 1960 Acct:[id number] Age/Sex: 63 / M ADM Date: 08/10/23 Loc: HO.US Attending Dr: Bimal Knott MD Ordering Physician: Bimal Knott MD Date of Service: 08/10/23 Procedure(s): US venous duplex LE RT Accession Number(s): [id number] cc: Quinton Callahan MD; Bimal Knott MD [...] in OV> 08/10/23 1857 DD/ 1336 TD/TT: Econometrician: MARY Complete Blood Count no Diff Reviewed date:08/16/2023 09:15:46 PM Interpretation: Performing Lab:[facility], [address] [place] [phone] Notes/Report: White Blood Count 8.5 4.8-10.8 X10*3/uL Red Blood Count 4.44 4.60-5.80 X10*6/uL Hemoglobin 14.9 14.0-18.0 g/dl Hematocrit 42.5 42.0-52.0 % Mean Corpuscular Volume 95.7 80.0-98.0 fL Mean Corpuscular Hemoglobin 33.6 27.0-33.0 pg Mean Corpuscular HGB Conc 35.1 31.0-36.0 g/dl Red Cell Distribution Width 13.1 11.0-16.0 % Platelet Count 294 160-400 X10*3/uL Mean Platelet Volume 9.5 9.4-12.4 fL NRBC Pct Auto 0.0 0.0-0.2 /100WBC NRBC Abs Auto 0.000 0.0-0.012 X10*3/uL Prothrombin Time INR Reviewed date:08/16/2023 09:15:46 PM Interpretation: Performing Lab:[address] [address] Notes/Report: Prothrombin Time 11.2 11.1-13.3 SEC INTERNATIONAL NORM RATIO 0.9 0.9-1.1 INTERNATIONAL NORMALIZED RATIO (INR) REFERENCE RANGES Reference Range For patients not on anticoagulant therapy: 0.9 - 1.1 INR ranges for oral anticoagulant therapy: For prevention and treatment of venous thrombosis and pulmonary embolism: 2.0 - 3.0 For acute myocardial infarction with aspirin therapy: 2.0 - 3.0 For acute myocardial infarction without aspirin therapy: 3.0 - 4.0 For patients with mechanical prosthetic heart valves: 2.5 - 3.5 Partial Thromboplastin Time Reviewed date:08/16/2023 09:15:46 PM Interpretation: Performing Lab:[facility], [address] [place] [phone] Notes/Report: Partial Thromboplastin Time 26.7 26.0-36.8 SEC For information regarding the monitoring of direct thrombin inhibitors, please refer to Pharmacy. Basic Metabolic Panel Reviewed date:08/16/2023 09:15:46 PM Interpretation: Performing Lab:[address] [phone] Notes/Report: Sodium 140 135-145 mmol/L Potassium 4.1 3.3-5.1 mmol/L Chloride 107 96-108 mmol/L Carbon Dioxide 25 22-29 mmol/L Anion Gap 12 12-20 Blood Urea Nitrogen 20 9-16 mg/dL Creatinine 0.83 0.5-1.4 mg/dL Creatinine Clr Calc Pharmacy 97.3 eGFR (calculated from the MDRD study equation) and eCrCl (calculated from the Cockcroft-Gault equation) are based on different parameters and may not yield comparable results. If eCrCl result is absurd, please check patient's height/weight. Estimated Glomerular Filt Rate > 60 NOTE: For -[place] individuals, multiply the result by 1.210. Chronic Kidney Disease: Estimated GFR < 60 mL/min/1.73m2 Severe Kidney Disease: Estimated GFR < 15 mL/min/1.73m2 Glucose Random 103 60-115 mg/dL Calcium 9.4 8.4-10.2 mg/dL Complete Blood Count Auto Di ff Reviewed date:08/16/2023 09:15:46 PM Interpretation: Performing Lab:[facility], [address] [place] [phone] Notes/Report: White Blood Count 10.6 4.8-10.8 X10*3/uL Red Blood Count 3.73 4.60-5.80 X10*6/uL Hemoglobin 12.6 14.0-18.0 g/dl Hematocrit 36.1 42.0-52.0 % Mean Corpuscular Volume 96.8 80.0-98.0 fL Mean Corpuscular Hemoglobin 33.8 27.0-33.0 pg Mean Corpuscular HGB Conc 34.9 31.0-36.0 g/dl Red Cell Distribution Width 13.1 11.0-16.0 % Platelet Count 215 160-400 X10*3/uL Mean Platelet Volume 9.6 9.4-12.4 fL Neutrophils Percent Auto 73.0 45-73 % Imm Gran Pct Auto 0.4 0.0-0.4 % Lymphocytes Percent Auto 14.2 20-40 % Monocytes Percent Auto 12.0 2-11 % Eosinophils Percent Auto 0.3 0-4 % Basophils Percent Auto 0.1 0-2 % NRBC Pct Auto 0.0 0.0-0.2 /100WBC Neutrophils Absolute Auto 7.7 2.0-8.3 x10*3/u L Imm Gran Abs Auto 0.04 0.00-0.03 X10*3/uL Lymphocytes Absolute Auto 1.5 1.2-4.9 X10*3/u L Monocytes Absolute Auto 1.3 0.1-1.2 X10*3/uL Eosinophils Absolute Auto 0.0 0.0-0.4 X10*3/u L Basophils Absolute Auto 0.0 0.0-0.2 X10*3/uL NRBC Abs Auto 0.000 0.0-0.012 X10*3/uL Basic Metabolic Panel Reviewed date:08/16/2023 09:15:46 PM Interpretation: Performing Lab:[address] [phone] Notes/Report: Sodium 140 135-145 mmol/L Potassium 3.6 3.3-5.1 mmol/L Chloride 107 96-108 mmol/L Carbon Dioxide 27 22-29 mmol/L Anion Gap 10 12-20 Blood Urea Nitrogen 10 9-16 mg/dL Creatinine 0.71 0.5-1.4 mg/dL Creatinine Clr Calc Pharmacy 113.8 eGFR (calculated from the MDRD study equation) and eCrCl (calculated from the Cockcroft-Gault equation) are based on different parameters and may not yield comparable results. If eCrCl result is absurd, please check patient's height/weight. Estimated Glomerular Filt Rate > 60 NOTE: For -[place] individuals, multiply the result by 1.210. Chronic Kidney Disease: Estimated GFR < 60 mL/min/1.73m2 Severe Kidney Disease: Estimated GFR < 15 mL/min/1.73m2 Glucose Random 113 60-115 mg/dL Calcium 8.5 8.4-10.2 mg/dL Phosphorus Reviewed date:08/16/2023 09:15:46 PM Interpretation: Performing Lab:[facility], [address] [place] [phone] Notes/Report: Phosphorus 2.4 2.7-4.5 mg/dL Magnesium Reviewed date:08/16/2023 09:15:46 PM Interpretation: Performing Lab:[facility], [address] [place] [phone] Notes/Report: Magnesium 2.0 1.6-2.6 mg/dL Complete Blood Count Auto Di ff Reviewed date:08/16/2023 09:15:45 PM Interpretation: Performing Lab:[facility], [address] [place] [phone] Notes/Report: White Blood Count 10.8 4.8-10.8 X10*3/uL Red Blood Count 4.03 4.60-5.80 X10*6/uL Hemoglobin 13.5 14.0-18.0 g/dl Hematocrit 39.0 42.0-52.0 % Mean Corpuscular Volume 96.8 80.0-98.0 fL Mean Corpuscular Hemoglobin 33.5 27.0-33.0 pg Mean Corpuscular HGB Conc 34.6 31.0-36.0 g/dl Red Cell Distribution Width 13.0 11.0-16.0 % Platelet Count 213 160-400 X10*3/uL Mean Platelet Volume 10.0 9.4-12.4 fL Neutrophils Percent Auto 71.8 45-73 % Imm Gran Pct Auto 0.5 0.0-0.4 % Lymphocytes Percent Auto 15.0 20-40 % Monocytes Percent Auto 11.7 2-11 % Eosinophils Percent Auto 0.7 0-4 % Basophils Percent Auto 0.3 0-2 % NRBC Pct Auto 0.0 0.0-0.2 /100WBC Neutrophils Absolute Auto 7.7 2.0-8.3 x10*3/u L Imm Gran Abs Auto 0.05 0.00-0.03 X10*3/uL Lymphocytes Absolute Auto 1.6 1.2-4.9 X10*3/u L Monocytes Absolute Auto 1.3 0.1-1.2 X10*3/uL Eosinophils Absolute Auto 0.1 0.0-0.4 X10*3/u L Basophils Absolute Auto 0.0 0.0-0.2 X10*3/uL NRBC Abs Auto 0.000 0.0-0.012 X10*3/uL Basic Metabolic Panel Reviewed date:08/16/2023 09:15:45 PM Interpretation: Performing Lab:[facility], [address] [place] [phone] Notes/Report: Sodium 137 135-145 mmol/L Potassium 3.6 3.3-5.1 mmol/L Chloride 104 96-108 mmol/L Carbon Dioxide 28 22-29 mmol/L Anion Gap 9 12-20 Blood Urea Nitrogen 14 9-16 mg/dL Creatinine 0.78 0.5-1.4 mg/dL Creatinine Clr Calc Pharmacy 103.6 eGFR (calculated from the MDRD study equation) and eCrCl (calculated from the Cockcroft-Gault equation) are based on different parameters and may not yield comparable results. If eCrCl result is absurd, please check patient's height/weight. Estimated Glomerular Filt Rate > 60 NOTE: For -[place] individuals, multiply the result by 1.210. Chronic Kidney Disease: Estimated GFR < 60 mL/min/1.73m2 Severe Kidney Disease: Estimated GFR < 15 mL/min/1.73m2 Glucose Random 117 60-115 mg/dL Calcium 9.0 8.4-10.2 mg/dL Phosphorus Reviewed date:08/16/2023 09:15:45 PM Interpretation: Performing Lab:[facility], [address] [place] [phone] Notes/Report: Phosphorus 2.1 2.7-4.5 mg/dL Magnesium Reviewed date:08/16/2023 09:15:46 PM Interpretation: Performing Lab:[facility], [address] [place] [phone] Notes/Report: Magnesium 2.0 1.6-2.6 mg/dL REASON FOR REFERRAL Reason cintron's esophagiti s Diagnosis 1 Cintron's esophagus determined by endoscopy (K22.70) Referral Organization Quinton Callahan III, MD Referring Provider First Name Quinton Referring Provider Last Name [place] Referring Provider Speciality Internal M edicine Referred Provider Quinton Campos Referred Provider Specialty Gastroentero logy General Notes Jolie Connor CMA 08/2023 02:22:46 PM EST > called made pt appt for 08/14/2023 at 10:30am info mailed to patient and ref/demo/progress note faxed to Dr Campos Referral Priority Routine Referral Appointment Date 08/14/2023 MEDICATIONS Medication SIG (Take, Route, Frequency, Duration) Notes Start Date End Date Status ASA 1 tab Oral Active Pantoprazole Sodium 40 MG Take 2 tablets by mouth once daily for 90 Active Albuterol Sulfate HFA 108 (90 Base) MCG/ACT INHALE 2 PUFFS BY MOUTH EVERY 4 TO 6 HOURS NEEDED FOR SHORTNESS OF BREATH OR WHEEZING Inhalation Active Breo Ellipta 200-25 MCG/ACT INHALE 1 PUF F BY MOUTH ONCE DAILY Inhalation Active Tamsulosin HCl 0.4 MG Take 2 capsules by mouth once daily Active Atorvastatin Calcium 10 MG Take 1 tablet by mouth once daily Active Tylenol 325 MG 1 tablet as needed O rally every 4 hrs Active ibuprofen 1 tab Oral Active SOCIAL HISTORY Tobacco Use: Social History [...] Code Notes Problem Overweight (E66.3) Active confirmed 974990905 His body mass index is 29. We discussed diet and nutrition. I recommended aggressive weight loss and sodium restriction. Problem Mixed hyperlipidemia (E78.2) Active confirmed [id number] A [employer] laboratory database with a fasting lipid profile will be obtained. He was continued on his currrent meddications. Problem Chronic obstructive pulmonary disease, unspecified COPD type (J44.9) Active confirmed 13284868 He has resumed smoking 5 cigarettes per day. He was counseled about this and made aware of the smoking cessation programs in the area. Problem Tobacco dependence (F17.200) Active confirmed 38567979 I have counseled him about smoking cessation and offered to refer him to smoking cessation programs in the community. He said he would consider this and try to cut down. Problem Left bundle branch block (I44.7) Active confirmed Left bundle bra nch block (46640296) The picture framer's interpretation of the perfusion test was that the defect in the septum may be due to the bundle branch block. I will discuss this with cardiology. Problem Hiatal hernia (K44.9) Active confirmed 01232927 The symptoms o f his esophageal reflux and hiatal hernia well controlled with current medications. No change in his regimen as needed. Problem Peripheral arterial disease (I73.9) Active confirmed 466786908 His recen t surgery was successful and the wound is healing well. He reports an absence of pain in the right foot at rest and a greater ability to walk without pain. Problem Hoarseness (R49.0) Active confirmed Hoarseness (95731216) He will be referred to ENT for indirect laryngoscopy. Problem Umbilical hernia without obstruction and without gangrene (K42.9) Active confirmed 0550008 This is asymptomatic and requires no treatment at this time. Problem Benign prostatic hyperplasia with lower urinary tract symptoms (N40.1) Active confirmed 409856616 The tamsulosin was continued today. He will notify me if his symptoms worsen. He has had no retention. He has symptoms of prostatism. Problem Acute right-sided low back pain with right-sided sciatica (M54.41) Active confirmed 616802300 Problem Cintron's esophagus determined by endoscopy (K22.70) Active confirmed 720201747 He is due for an endoscopy and was referred back to his gastroenterolog ist, Dr. Quinton Campos. 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 Problem Carpal tunnel syndrome on both sides (G56.03) Active confirmed [id number] He has a history of carpal tunnel syndrome treated by Dr. Raphael. He is currently asymptomatic. VITAL SIGNS Heart Rate 68 /min 08/27/2023 Temperature 98.1 degrees Fahrenheit 08/27/2023 Blood pressure diastolic 66 mm Hg 08/27/2023 Height 73 in 08/27/2023 Blood pressure systolic 109 mm Hg 08/27/2023 Weight 195 lbs 08/27/2023 BMI 25.72 kg/m2 08/27/2023 Encounters Encounter Location Date Provider Diagnosis Quinton Callahan III, MD [address] [place] [address] [place] [address] 04/17/2023 Quinton Callahan Chronic obstructive pulmonary disease, unspecified COPD type J44.9 ; Cintron's esophagus determined by endoscopy K22.70 ; Benign prostatic hyperplasia with lower urinary tract symptoms N40.1 ; Tobacco dependence F17.200 ; Peripheral arterial disease I73.9 and Hoarseness R49.0 Quinton Callahan III, MD [address] [place] [address] [place] [address] 04/04/2023 Quinton Callahan Benign prostatic hyperplasia with lower urinary tract symptoms N40.1 ; Cintron's esophagus determined by endoscopy K22.70 ; Peripheral arterial disease I73.9 ; Mixed hyperlipidemia E78.2 and Lumbar back pain M54.50 Quinton Callahan III, MD [address] [place] [address] [place] [address] 06/13/2023 Quinton Callahan Peripheral arterial disease I73.9 ; Tobacco dependence F17.200 ; Overweight E66.3 ; Umbilical hernia without obstruction and without gangrene K42.9 ; Acute right-sided low back pain with right-sided sciatica M54.41 ; Chronic obstructive pulmonary disease, unspecified COPD type J44.9 and Cintron's esophagus determined by endoscopy K22.70 Quinton Callahan III, MD [address] [place] [address] [place] [address] 07/09/2023 Quinton Callahan Peripheral arterial disease I73.9 ; Benign prostatic hyperplasia with lower urinary tract symptoms N40.1 ; Cintron's esophagus determined by endoscopy K22.70 ; Chronic obstructive pulmonary disease, unspecified COPD type J44.9 ; Hiatal hernia K44.9 ; Tobacco dependence F17.200 and Overweight E66.3 Quinton Callahan III, MD [address] [place] [address] [place] [address] 08/27/2023 Quinton Callahan Peripheral arterial disease I73.9 ; Benign prostatic hyperplasia with lower urinary tract symptoms N40.1 ; Cintron's esophagus determined by endoscopy K22.70 ; Chronic obstructive pulmonary disease, unspecified COPD type J44.9 ; Overweight E66.3 ; Tobacco dependence F17.200 and Mixed hyperlipidemia E78.2 Quinton Callahan III, MD [address] [place] [address] [place] [address] 04/02/2023 Quinton Callahan III, MD [address] [place] [address] [place] [address] 04/02/2023 Quinton Callahan III, MD [address] [place] [address] [place] [address] 07/24/2023 Quinton Callahan III, MD [address] [place] [address] [place] [address] 08/02/2023 Quinton Callahan III, MD [address] [place] [address] [place] [address] 08/09/2023 Quinton Callahan III, MD [address] [place] [address] [place] [address] 08/16/2023 Quinton Callahan III, MD [address] [place] [address] [place] [address] 08/20/2023 Quinton Callahan III, MD [address] [place] [address] [place] [address] 07/24/2023 Quinton Callahan Peripheral arterial disease I73.9 ; Hiatal hernia K44.9 ; Splenic vein thrombosis I82.890 ; Cintron's esophagus determined by endoscopy K22.70 ; Benign prostatic hyperplasia with lower urinary tract symptoms N40.1 ; Tobacco dependence F17.200 ; Hoarseness R49.0 and Left bundle branch block I44.7 Quinton Callahan III, MD [address] [place] [address] [place] [address] 08/07/2023 Quinton Callahan Peripheral arterial disease I73.9 Quinton Callahan III, MD [address] [place] [address] [place] [address] 08/08/2023 Quinton Callahan Peripheral arterial disease I73.9 [...] endoscopy and was referred back to his food prep worker, Dr. Quinton Campos. 04/04/2023 Benign prostatic hyperplasia with lower urinary tract symptoms (ICD-10 - N40.1) The tamsulosin was continued today. He will notify me if his symptoms worsen. He has had no retention. He has symptoms of prostatism. 04/04/2023 Cintron's esophagus determined by endoscopy (ICD-10 - K22.70) He is due for an endoscopy and was referred back to his food prep worker, Dr. Quinton Campos. 06/13/2023 Tobacco dependence (ICD-10 [...] retention. He has symptoms of prostatism. 08/27/2023 Peripheral arterial disease (ICD-10 - I73.9) [...] endoscopy and was referred back to his food prep worker, Dr. Quinton Campos. 08/27/2023 Cintron's esophagus determined by endoscopy (ICD-10 - K22.70) He is due for an endoscopy and was referred back to his food prep worker, Dr. Quinton Campos. 07/24/2023 Splenic vein thrombosis (ICD-10 - I82.890) There have been no further signs of thromboembolism. 08/08/2023 Cintron's esophagus determined by endoscopy (ICD-10 - K22.70) He is due for an endoscopy and was referred back to his food prep worker, Dr. Quinton Campos. 04/17/2023 Tobacco dependence (ICD-10 [...] area and strongly encouraged him to attend. 08/27/2023 Chronic obstructive pulmonary disease, unspecified COPD type (ICD-10 - J44.9) He has resumed smoking 5 cigarettes per day. He was counseled about this and made aware of the smoking cessation programs in the area. 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 Quinton Campos. 08/08/2023 Chronic obstructive pulmonary [...] No change in his regimen as needed. 08/27/2023 Overweight (ICD-10 - E66.3) His body mass index is 29. We discussed diet and nutrition. I recommended aggressive weight loss and sodium restriction. 07/24/2023 Benign prostatic hyperplasia with lower urinary [...] this and try to cut down. 08/27/2023 Tobacco dependence (ICD-10 - F17.200) I [...] endoscopy and was referred back to his food prep worker, Dr. Quinton Campos. 07/09/2023 Overweight (ICD-10 - E66.3) His body mass index is 29. We discussed diet and nutrition. I recommended aggressive weight loss and sodium restriction. 08/27/2023 Mixed hyperlipidemia (ICD-10 - E78.2) A comprehensive laboratory database with a fasting lipid profile will be obtained. He was continued on his currrent meddications. 07/24/2023 Hoarseness (ICD-10 - R49.0) He will be referred to ENT for indirect laryngoscopy. 07/24/2023 Left bundle branch block (ICD-10 - I44.7) The picture framer's interpretation of the perfusion test was that the defect in the septum may be due to the bundle branch block. I will discuss this with cardiology. PLAN OF TREATMENT Pending Test Test Name Order Date PROFILE, FASTING (COMPREHENSIVE METABOLI C) 07/09/2019 PROFILE, FASTING (COMPREHENSIVE METABOLI C) 09/19/2019 LIPID PANEL 09/19/2019 LIPID PANEL 07/09/2019 LDH 09/19/2019 CPK 09/19/2019 CBC w DIFF 09/19/2019 CBC w DIFF 07/09/2019 NUC MYOCARDIAL PERF SPECT W MIBI 020 Echocardiogram 12/01/2019 Stress Test 12/01/2019 SARS COV2 RNA RT PCR 04/13/2020 SARS COV2 RNA RT PCR 09/29/2019 Next Appt Details Provider Name:Quinton Callahan, 10/15/2023 11:00:00 AM, [address] [place] [address] KAILYN JURADO, [place], [address], Insurance Providers Payer Name Payer Address Payer Phone Subscriber Number Group Number Insured Name Patient Relationship to Insured Coverage Start Date Coverage End Date [employer] Medicare [address] [place] [address] [phone] [id number] Zan Olivo Self - patient is the insured MEDICARE NGS [address] [place] [phone] [id number] Zan Olivo Self - patient is the [...] arteriogram right lower extremity 05/2019 upper endoscopy, [facility], Dr. Quinton Campos, Cintron's esophagus 2014 upper endoscopy and colonosc opy, [facility], Dr. 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
--- OUTSIDE RECORDS SUMMARY | 2023-09-17 20:27 | XMS_ITS ---
Author Organization [facility] Address [address] [place] [address] Care Team Providers Care Mechanical Design Engineer Facilities Name Role Phone Quinton Callahan MD Primary Care Provider Unavailab Quinton Alvarez Unavailable [phone] REASON FOR VISIT no show Encounters Encounter Location Date Provider Diagnosis [facility] [address] [place] [address] 08/14/2023 Quinton Campos PLAN OF TREATMENT No Information
--- OUTSIDE RECORDS SUMMARY | 2023-09-17 20:28 | XMS_ITS | Patient Health Record ---
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) Active confirmed [id number] Problem Gastroesophageal reflux disease without esophagitis (K21.9) Active confirmed [id number] Encounters Encounter Location Date Provider Diagnosis [facility] [address] [place] [address] 08/14/2023 Quinton Campos [facility] [address] [place] [address] 08/14/2023 Quinton Campos PLAN OF TREATMENT Future Test Test Name Order Date UPPER GI ENDOSCOPY 03/19/2013 UPPER GI ENDOSCOPY 06/11/2019 COLONOSCOPY 06/11/2019 Insurance Providers Payer Name Payer Address Payer Phone Subscriber Number Group Number Insured Name Patient Relationship to Insured Coverage Start Date Coverage End Date MEDICARE OF [place] [address] [place] [address] [phone] [id number] JUAN FRANCISCO HOWELL Self - patient is the insured MEDICAL (GENERAL) HISTORY Medical History History ICD Code Colonoscopy in 12/2009 neg e xcept for a hyperplastic polyp, diverticulosis, and internal hemmorhoids GERD with a small area of Ba rrett's esophagus--EGD in 12/2009-small HH-bx neg for dysplasia Splenic vein thrombosis in approx 1999-- had previously been on Coumadin Denies AR,DM,CVA,renal disease EGD 04/2013 with small area o f Palmer's, no dysplasia nor esophagitis; small hiatal hernia COPD PVD with claudication as below Surgical History Surgery Date(Month/Year) 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 Knott 06/18/2019
[2023-09-17] MEDS: Doxycycline Monohydrate 100 MG CAPSULE PO (21:01)
[2023-09-17 21:05] VITALS: BP 147/91; PULSE 77; RESP 20; TEMP 36.6; O2SAT 98
== END 2023-09-17 21:06 | disposition home or self-care (01) ==
PROVIDERS: Physician Assistant Medical; Emergency Provider Internal Medicine
DX: L08.9 Local infection of the skin and subcutaneous tissue, unspecified (principal); R60.0 Localized edema; Z79.899 Other long term (current) drug therapy
CPT/HCPCS: 36415; 80048; 80076; 85025; 87040; 93971; 99284

== ENCOUNTER 2023-09-20 11:49 | Outpatient (REF) | payer MEDICARE, SELFPAY | END 2023-09-20 11:50 | disposition home or self-care (01) | LOC: HO.LNP 11:49 | PROVIDERS: Visit Provider Internal Medicine Medical Oncology | DX: T14.8XXA Other injury of unspecified body region, initial encounter (principal) | CPT/HCPCS: 87070; 87205 ==

== ENCOUNTER 2023-09-25 10:41 | Outpatient (AMB) | payer MEDICARE, SELFPAY ==
--- NOTE | 2023-09-25 10:45 | A.OFFVIS_ITS ---
Vital Signs 09/25/23 10:46 Height 6 ft Weight 192 lb BMI 26.0 Intake Visit Reasons: POst op issues s/p bypass per Intake Note: PRN follow up fem-pop bypass 08/13/23, has been seen in the ED and urgent Care and PCP since for infection. He is currently on keflex and doxycycline. States when he is walking his foot turns white and at rest his foot turns red and sta sameer he has very bad pain on the bottom of his foot. Pt states the bottom 2-3 inches on distal incision opened up and started the infection. Of note he does have severe swelling on the right LE. Accompanied by: Self / Same As Patient Allergies No Known Allergies Allergy (Verified 09/25/23 10:50) HPI HPI POst op issues s/p bypass per : Details: Pleasant 63-year-old gentleman presents for follow-up status post right distal SFA to below-knee popliteal bypass with reverse saphenous vein graft. He reports he is doing well in terms of the bypass. Able to ambulate. In the interim he has developed significant swelling and erythema of that lower extremity. There is minimal dehiscence of the inferior incision. Does report he is able to ambulate significantly better. [facility] Medical History Arthritis BPH (benign prostatic hyperplasia) Elevated cholesterol S/P angiogram of extremity (07/18/23) Atrial fibrillation History of Palmer's esophagus Splenic vein thrombosis History of femoral angiogram GERD (gastroesophageal reflux disease) COPD (chronic obstructive pulmonary disease) Peripheral arterial disease Surgical History Hx of oral surgery Hx of tracheostomy History of esophagogastroduodenoscopy (EGD) H/O colonoscopy Social History Household Members: None Housing: Apartment Are you a primary day care assistant to a significant other at home: No Do you presently have visiting nurse or other home services: No Patient Tobacco Use Status: Former Tobacco user Tobacco use type: Cigarette Cigarette Packs Per Day: 1 Cigarettes Per Day: 20.0 Years Smoked: 41 e-Cigarette/Vaping Use: Former Use Substance Use Type: Marijuana service: No Review of Systems Const All systems reviewed & are unremarkable except as noted in HPI and below Reports no additional complaints ENT Reports Normal hearing present Card Denies chest pain, Denies chest pain at rest, Denies chest pain with activity and Denies pedal edema Resp Denies cough GI Denies abdominal pain Musc Denies abnormal gait, Denies muscle cramps and Denies radiating pain into limb Skin/Breast Denies skin ulcer and Denies wounds Neuro Reports Normal hearing present and Denies abnormal gait Psych Reports no additional complaints Physical Exam Vital Signs: BMI result Body Mass Index 26.0 Const General: cooperative, healthy appearing and comfortable Orientation/consciousness: oriented to person, oriented to place and oriented to time HEENT Head: Yes normal to inspection Neck Neck: Yes normal visual inspection Carotids: no bruits Chest Chest palpation & inspection: normal inspection of the chest Resp Effort & Inspection: normal respiratory effort and able to speak in complete sentences Auscultation: clear to auscultation bilaterally, no crackles, no rales, no rhonchi and no wheezes Cardio Other: Right side bypass triphasic signal in the popliteal area Rate: regular rate Rhythm: regular rhythm Heart sounds: S1 normal heart sound present and S2 normal heart sound present Bruits: no carotid bruits Peripheral pulses: Peripheral pulses 2+ throughout GI Inspection: Yes normal to inspection Skin Wounds: no wounds Hair: normal Neuro General: oriented to person, oriented to place and oriented to time Cranial nerves: Yes CN's II-XII intact bilaterally and Yes Normal hearing present Cognition (Neuro): normal cognition Motor exam (neuro): 5/5 motor strength present throughout Extrem Other: Plus two edema right lower extremity with erythema tracking up to mid calf General: No clubbing, No cyanosis and No edema Psych Appearance: grossly normal Mental Status: mental status grossly normal Speech and movement: Normal speech and movement present Assessment & Plan Assessment & Plan (1) Peripheral arterial disease: Comment: 06/18/2019 right SFA stent right popliteal plasty 07/18/2023 - diagnostic angiogram 08/13/2023 - right distal SFA to below-knee popliteal bypass with reverse saphenous vein graft Code(s): I73.9 - Peripheral vascular disease, unspecified Category: Medical Plan: In terms of the patient's bypass graft is patent and functioning. Issue here is that he has developed swelling and cellulitis that lower extremity. Fortunately it is vein bypass and I am not concerned about a prosthetic infection. Will continue with this cephalexin and doxycycline. We did prescribe tubigrips leg elevation and offloading as much as possible. He will follow up with us in approximately 1 week's time. Should erythema increase he was instructed to contact our office so we can change up his antibiotic regimen. Thank you for allowing us to assist in his care. If there are any questions or concerns please do not hesitate to contact us. Coding Level of Care Code Est Pt Level 3 (14064) Diagnoses Peripheral arterial disease I73.9
[2023-09-25 10:46] VITALS: BMI 26.0
== END 2023-09-25 11:34 | disposition home or self-care (01) ==
PROVIDERS: Visit Provider Surgery Vascular Surgery
DX: I73.9 Peripheral vascular disease, unspecified (principal)
CPT/HCPCS: 99024

== ENCOUNTER → 2023-09-25 10:41 | Outpatient (BNVA) | payer MEDICARE, SELFPAY | PROVIDERS: Visit Provider Surgery Vascular Surgery | DX: I73.9 Peripheral vascular disease, unspecified (principal); Z87.891 Personal history of nicotine dependence | CPT/HCPCS: 99212 ==

== ENCOUNTER 2023-09-26 07:28 | Outpatient (REF) | payer MEDICARE, SELFPAY ==
--- NOTE | ~2023-09-26 | CT_ITS ---
EXAMINATION: CT CHEST WITHOUT CONTRAST CLINICAL INFORMATION: Nicotine dependence, uncomplicated COMPARISON: 08/07/2023, 06/28/23 TECHNIQUE: Multidetector volumetric CT imaging of the chest was done. Axial MIP volume rendering provided. Sagittal and coronal reformatted images were obtained. This CT examination was performed using dose optimization techniques as appropriate, variously including the following: *Automated exposure control *Adjustment of mA and/or kV according to patient size (this includes techniques or standardized protocols for targeted exams where dose is matched to indication/reason for exam; i.e. extremities or head) *Use of iterative reconstruction technique DLP: 204 mGy-cm FINDINGS: LUNGS: Central airways are patent. No suspicious pulmonary nodule. PLEURA: No pleural effusion. MEDIASTINUM: No cardiomegaly. Aorta and pulmonary artery are normal in caliber. No mediastinal adenopathy. Lack of IV contrast suspension for hilar adenopathy. CORONARY ARTERY CALCIFICATION: No coronary artery calcification appreciated. CHEST WALL/AXILLA: No axillary or internal mammary lymphadenopathy. UPPER ABDOMEN: There is large left hydronephrosis versus left renal cyst partially visualized. OSSEOUS STRUCTURES: Degenerative changes of the spine. CT/CT chest wo IV con IMPRESSION: * No suspicious pulmonary nodule. * Large left hydronephrosis versus left renal cyst partially visualized. This exam was submitted to the interpreting radiologist for interpretation on 11/05/2023 5:46 PM CDT. The report will be called to the ordering clinician by a [facility] Physician Balance Staff Staker. Electronically signed by: Stephanie Courtney MD 11/05/2023 06:52 PM EDT
== END 2023-09-26 07:29 | disposition home or self-care (01) ==
LOC: HO.CT 07:28
PROVIDERS: PCP Internal Medicine Medical Oncology; Visit Provider Nurse Practitioner Family
DX: F17.210 Nicotine dependence, cigarettes, uncomplicated (principal)
CPT/HCPCS: 71250

== ENCOUNTER 2023-10-01 17:25 | Inpatient (IN) | payer MEDICARE, SELFPAY ==
--- NOTE | ~2023-10-01 | XR_ITS ---
EXAMINATION: XR foot RT 2V, XR tibia fibula RT 2V INDICATION: redness. osteo? COMPARISON: No pertinent prior studies are currently available for comparison. TECHNIQUE: 2 views the right tibia and fibula and 3 views of the right foot FINDINGS: Vascular surgical clips are seen. Bones are normal anatomic alignment with no acute fracture or dislocation. No bony destructive lesions. Soft tissue swelling diffusely throughout the tibia and right ankle. Right foot: Degenerative changes first MTP joint. Bones are normal anatomic alignment with no acute fracture or dislocation seen. Diffuse soft tissue swelling is seen more so along the midfoot to forefoot. XR/XR tibia fibula RT 2V IMPRESSION: Diffuse soft tissue swelling but no acute fracture or dislocation. No bony destructive lesions. Vascular surgical clips are seen.
--- NOTE | ~2023-10-01 | XR_ITS ---
EXAMINATION: XR foot RT 2V, XR tibia fibula RT 2V INDICATION: redness. osteo? COMPARISON: No pertinent prior studies are currently available for comparison. TECHNIQUE: 2 views the right tibia and fibula and 3 views of the right foot FINDINGS: Vascular surgical clips are seen. Bones are normal anatomic alignment with no acute fracture or dislocation. No bony destructive lesions. Soft tissue swelling diffusely throughout the tibia and right ankle. Right foot: Degenerative changes first MTP joint. Bones are normal anatomic alignment with no acute fracture or dislocation seen. Diffuse soft tissue swelling is seen more so along the midfoot to forefoot. XR/XR foot RT 2V IMPRESSION: Diffuse soft tissue swelling but no acute fracture or dislocation. No bony destructive lesions. Vascular surgical clips are seen.
--- NOTE | ~2023-10-01 | US_ITS ---
EXAMINATION: US VENOUS ULTRASOUND WITH DOPPLER LOWER EXTREMITY, RIGHT CLINICAL INFORMATION: Redness and edema COMPARISON: None available. TECHNIQUE: Ultrasound of the deep veins is performed from the hip to the calf with compression sonography and color and pulse Doppler assessment. Spectral analysis with color-flow imaging is performed. FINDINGS: There is normal venous compression and respiratory variation and augmented flow. The visualized common femoral vein, superficial femoral vein, profunda femoral vein, popliteal vein, and the trifurcation region shows no evidence of deep venous thrombosis. There is no significant popliteal fossa cyst. There is a complex cystic structure in the proximal to mid medial calf again seen. This currently measures 5.1 x 2.5 x 3.2 cm in size. There is surrounding edema. If the patient's symptoms persist, followup ultrasound in 5 days 7 days might be of value to exclude proximal propagation from a non-visualized calf vein. US/US venous duplex LE RT IMPRESSION: No DVT demonstrated in the right lower extremity. 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 This was noted on the prior study as well and appears similar to that size.
[2023-10-01 17:29] VITALS: BP 130/62; PULSE 58; RESP 16; TEMP 36.4; O2SAT 94; BMI 26.4
--- NOTE | 2023-10-01 17:37 | ED_ITS ---
HPI - General Adult General Chief complaint: Extremity Problem Stated complaint: post op infection Time Seen by Provider: 10/01/23 23:56 Related Data Home Medications ?Medication ?Instructions ?Recorded ?Confirmed aspirin 81 mg tablet,delayed 81 mg PO DAILY 01/12/20 08/14/23 release (Luis Low Dose Aspirin) pantoprazole 40 mg tablet,delayed 80 mg PO DAILY@0630 01/12/20 08/14/23 release tamsulosin 0.4 mg capsule 0.8 mg PO DAILY 01/12/20 08/14/23 atorvastatin 10 mg tablet 10 mg PO DAILY 05/04/20 08/14/23 acetaminophen 325 mg tablet 975 mg PO TID PRN Pain 08/03/23 08/14/23 (Tylenol) ibuprofen 200 mg tablet 400 mg PO Q8H PRN Pain 08/03/23 08/13/23 ascorbic acid (vitamin C) 500 mg 500 mg PO DAILY 08/14/23 08/14/23 tablet (Vitamin C) vitamin E 268 mg (400 unit) capsule 268 mg PO DAILY 08/14/23 08/14/23 cephalexin 500 mg capsule 500 mg PO BID 09/25/23 Previous Rx's ?Medication ?Instructions ?Recorded albuterol sulfate 90 mcg/actuation 2 puff inhalation Q4-6H PRN 08/07/23 aerosol inhaler shortness of breath or wheezing #1 ea fluticasone furoate 200 1 inh inhalation DAILY #60 ea 08/07/23 mcg-vilanterol 25 mcg/dose inhalation powder (Breo Ellipta) nicotine 21 mg/24 hr daily 1 patch transdermal DAILY #28 ea 08/10/23 transdermal patch docusate sodium 100 mg capsule 100 mg PO BID #20 caps 08/17/23 (Colace) oxycodone-acetaminophen 5 mg-325 1 tab PO TID PRN pain #20 tabs 08/17/23 mg tablet (Percocet) doxycycline hyclate 100 mg capsule 100 mg PO BID 10 days #20 caps 09/18/23 mupirocin 2 % topical ointment 1 appl topical BID #22 grams 09/18/23 Allergies Allergy/AdvReac Type Severity Reaction Status Date / Time No Known Allergies Allergy Verified 10/01/23 17:40 [facility] Past Medical History Medical History Arthritis BPH (benign prostatic hyperplasia) Elevated cholesterol S/P angiogram of extremity (07/18/23) Atrial fibrillation History of Palmer's esophagus Splenic vein thrombosis History of femoral angiogram GERD (gastroesophageal reflux disease) COPD (chronic obstructive pulmonary disease) Peripheral arterial disease Surgical History Hx of oral surgery Hx of tracheostomy History of esophagogastroduodenoscopy (EGD) H/O colonoscopy Social History Social History Household Members: None Housing: Apartment Are you a primary healthcare representative to a significant other at home: No Do you presently have visiting nurse or other home services: No Patient Tobacco Use Status: Former Tobacco user Tobacco use type: Cigarette Cigarette Packs Per Day: 1 Cigarettes Per Day: 20.0 Years Smoked: 41 e-Cigarette/Vaping Use: Former Use Substance Use Type: Marijuana Advance Directives: No Advance Directives Information Provided: Yes service: No Physical Exam ED Vital Signs: Vital Signs - 24 hr 10/01/23 17:29 10/01/23 23:44 Temperature 97.6 F 98.2 F Pulse Rate 58 65 Respiratory Rate 16 16 Blood Pressure 130/62 137/84 Pulse Oximetry 94 99 Oxygen Delivery Method Room Air Room Air BMI result Body Mass Index 26.4 Course Course Course Narrative: RME: done by JO Cruz. 60-year-old male status post right leg surgery presents to the ED for redness and swelling of right leg and right foot. Patient was placed on oral antibiotics and there was no improvement in sent redness and swelling worsened. Patient states no chest pain or shortness of breath. Exam positive for right lower extremity swelling redness and tenderness of tibia and foot. Labs x-ray ultrasound ordered. Medications Administered Discontinued Medications Generic Name Dose Route Start Last Admin Trade Name Freq PRN Reason Stop Dose Admin Piperacillin Sod/Tazobactam 100 mls @ 200 mls/hr 10/02/23 00:21 10/02/23 01:05 Sod 4.5 gm/ Sodium Chloride IV 10/02/23 00:50 200 mls/hr ONCE ONE Administration Medical Decision Making Lab Data 10/01/23 19:14 10/01/23 19:14 Labs: Lab Results 10/01/23 10/02/23 Range/Units 19:14 00:47 WBC 11.0 H (4.8-10.8) X10*3/uL RBC 4.54 L (4.60-5.80) X10*6/uL Hgb 15.6 (14.0-18.0) g/dl Hct 45.0 (42.0-52.0) % MCV 99.1 H (80.0-98.0) fL MCH 34.4 H (27.0-33.0) pg MCHC 34.7 (31.0-36.0) g/dl RDW 11.9 (11.0-16.0) % Plt Count 284 (160-400) X10*3/uL MPV 9.5 (9.4-12.4) fL Immature Gran % (Auto) 0.5 H (0.0-0.4) % Neut % (Auto) 70.1 (45-73) % Lymph % (Auto) 18.9 L (20-40) % Spencer % (Auto) 8.4 (2-11) % Eos % (Auto) 1.4 (0-4) % Baso % (Auto) 0.7 (0-2) % Lymph # (Auto) 2.1 (1.2-4.9) X10*3/uL Spencer # (Auto) 0.9 (0.1-1.2) X10*3/uL Eos # (Auto) 0.2 (0.0-0.4) X10*3/uL Baso # (Auto) 0.1 (0.0-0.2) X10*3/uL Abs Immat Gran (auto) 0.06 H (0.00-0.03) X10*3/uL Absolute Neuts (auto) 7.7 (2.0-8.3) x10*3/uL Absolute Nucleated RBC 0.000 (0.0-0.012) X10*3/uL Nucleated RBC % (auto) 0.0 (0.0-0.2) /100WBC ESR 2 (0-15) MM/HR PT 11.2 (11.1-13.3) SEC INR 0.9 (0.9-1.1) APTT 29.0 (26.0-36.8) SEC Sodium 141 (135-145) mmol/L Potassium 3.9 (3.3-5.1) mmol/L Chloride 110 H (96-108) mmol/L Carbon Dioxide 24 (22-29) mmol/L Anion Gap 11 L (12-20) BUN 20 H (9-16) mg/dL Creatinine 0.88 (0.5-1.4) mg/dL Estim Creat Clear Calc 91.8 Estimated GFR > 60 Random Glucose 97 (60-115) mg/dL Lactic Acid 0.7 (0.5-2.0) mmol/L Calcium 9.7 (8.4-10.2) mg/dL Total Bilirubin 1.2 H (0.0-1.0) mg/dL AST 31 (5-37) U/L ALT 39 (0-40) U/L Alkaline Phosphatase 77 (39-117) U/L C-Reactive Protein < 0.04 (< or = 0.50) mg/dL Total Protein 6.6 (6.5-8.0) g/dL Albumin 4.1 (3.5-5.0) g/dL Discharge Plan Discharge Clinical Impression: Peripheral arterial disease, Atrial fibrillation, COPD (chronic obstructive pulmonary disease), Cellulitis Patient Disposition: Admitted As Inpatient Print Language: [place]
[2023-10-01 19:21] LABS: MANUAL DIFF FLAG NO
[2023-10-01 19:22] LABS: Basophils Absolute Auto 0.1 X10*3/uL (0.0-0.2); Basophils Percent Auto 0.7 % (0-2); Eosinophils Absolute Auto 0.2 X10*3/uL (0.0-0.4); Eosinophils Percent Auto 1.4 % (0-4); Hemoglobin 15.6 g/dl (14.0-18.0); Imm Gran Abs Auto 0.06 X10*3/uL (0.00-0.03); Imm Gran Pct Auto 0.5 % (0.0-0.4); Lymphocytes Absolute Auto 2.1 X10*3/uL (1.2-4.9); Lymphocytes Percent Auto 18.9 % (20-40); Mean Corpuscular HGB Conc 34.7 g/dl (31.0-36.0); Mean Corpuscular Hemoglobin 34.4 pg (27.0-33.0); Mean Corpuscular Volume 99.1 fL (80.0-98.0); Mean Platelet Volume 9.5 fL (9.4-12.4); Monocytes Absolute Auto 0.9 X10*3/uL (0.1-1.2); Monocytes Percent Auto 8.4 % (2-11); Neutrophils Absolute Auto 7.7 x10*3/uL (2.0-8.3); Neutrophils Percent Auto 70.1 % (45-73); Platelet Count 284 X10*3/uL (160-400); Red Blood Count 4.54 X10*6/uL (4.60-5.80); Red Cell Distribution Width 11.9 % (11.0-16.0)
[2023-10-01 19:41] LABS: INTERNATIONAL NORM RATIO 0.9 (0.9-1.1); Prothrombin Time 11.2 SEC (11.1-13.3)
[2023-10-01 19:49] LABS: Alanine Aminotransferase 39 U/L (0-40); Albumin Level 4.1 g/dL (3.5-5.0); Alkaline Phosphatase 77 U/L (39-117); Anion Gap 11 (12-20); Aspartate Amino Transferase 31 U/L (5-37); Bilirubin Total 1.2 mg/dL (0.0-1.0); Blood Urea Nitrogen 20 mg/dL (9-16); C Reactive Protein < 0.04 mg/dL (< or = 0.50); Calcium 9.7 mg/dL (8.4-10.2); Carbon Dioxide 24 mmol/L (22-29); Chloride 110 mmol/L (96-108); Creatinine Clr Calc Pharmacy 91.8; Estimated Glomerular Filt Rate > 60; Glucose Random 97 mg/dL (60-115); Potassium 3.9 mmol/L (3.3-5.1); Sodium 141 mmol/L (135-145); Total Protein 6.6 g/dL (6.5-8.0)
[2023-10-01 21:05] LABS: Erythrocyte Sedimentation Rate 2 MM/HR (0-15)
[2023-10-01 23:44] VITALS: BP 137/84; PULSE 65; RESP 16; TEMP 36.8; O2SAT 99
--- OUTSIDE RECORDS SUMMARY | 2023-10-01 23:58 | XMS_ITS ---
Author Organization [facility] Address [address] [place] [address] Care Team Providers Care Grain Thresher Name Role Phone Quinton Callahan MD Primary Care Provider Unavailab Quinton Alvarez Unavailable [phone] REASON FOR VISIT no show Encounters Encounter Location Date Provider Diagnosis [facility] [address] [place] [address] 08/14/2023 Quinton Campos PLAN OF TREATMENT No Information
--- OUTSIDE RECORDS SUMMARY | 2023-10-01 23:58 | XMS_ITS | Patient Health Record ---
Author Organization Quinton Callahan III, MD Address [address] [place] [address] [place] [address] Care Team Providers Care Internal Medicine Veterinary Technician Name Role Phone Quinton Callahan Primary Care Provider [phone] ALLERGIES Allergen (clinical drug ingredient) Drug/Non Drug Allergy documented on EMR Reaction Allergy Type Onset Date Status No Known Drug Allergy Unknown Drug Allergy Active RESULTS Component Value Reference Range Notes Lipid Panel Reviewed date:04/15/2023 10:17:38 AM Interpretation: Performing Lab:[facility], [address] [place] [phone] Notes/Report: Triglycerides 72 <150 mg/dL Desirable Triglyceride: [...] ff Reviewed date:04/15/2023 10:17:38 AM Interpretation: Performing Lab:[facility], [address] [place] [address] Notes/Report: White Blood Count 5.9 4.8-10.8 X10*3/uL [...] NRBC Abs Auto 0.000 0.0-0.012 X10*3/uL Comprehensive [place]. Panel Fa st Reviewed date:04/15/2023 10:17:38 AM Interpretation: Performing Lab:[facility], [address] [place] [address] Notes/Report: Sodium 140 135-145 mmol/L Potassium 4.3 3.3-5.1 mmol/L Chloride 105 96-108 mmol/L Carbon Dioxide 28 22-29 mmol/L Anion Gap 11 12-20 Blood Urea Nitrogen 16 9-16 mg/dL Creatinine 1.00 0.5-1.4 mg/dL Estimated Glomerular Filt Rate > 60 NOTE: For -Central [place] individuals, multiply the result by 1.210. Chronic [...] Antigen Reviewed date:04/15/2023 10:17:38 AM Interpretation: Performing Lab:[facility], [address] [place] [address] Notes/Report: Prostate Specific Antigen 1.08 <0.05-4.0 ng/mL PSA methodology: Mehta Alinity i Chemiluminescent Microparticle Immunoassay (CMIA) XR lumbar spine 4V min Reviewed date:04/15/2023 10:17:38 AM Interpretation: Performing Lab: Notes/Report: [address] [address] XRay Report Signed Patient: Zan Encinas MR#: [id number] : 1960 Acct:[id number] Age/Sex: 63 / M ADM Date: 04/11/23 Loc: HO.TRISTEN Attending Dr: Quinton Callahan MD Ordering Physician: Quinton Callahan MD Date of Service: 04/11/23 Procedure(s): XR lumbar spine 4V min Accession Number(s): [id number] cc: Quinton Callahan MD EXAMINATION: XR LUMBOSACRAL [...] in OV> 04/11/23 1527 DD/ 0942 TD/TT: Anatomic Pathologist: US VANCE complete Reviewed date:05/12/2023 06:32:45 AM Interpretation: Performing Lab: Notes/Report: [address] [address] Ultrasound Report Signed Patient: Zan Encinas MR#: [id number] : 1960 Acct:[id number] Age/Sex: 63 / M ADM Date: 05/10/23 Loc: .US Attending Dr: Bimal Knott MD Ordering Physician: Bimal Knott MD Date of Service: 05/10/23 Procedure(s): US VANCE complete Accession Number(s): [id number] cc: Quinton Callahan MD; Bimal Knott MD [...] in OV> 05/10/23 1114 DD/ 0949 TD/TT: Anatomic Pathologist: US arterial duplex LE BI Reviewed date:05/12/2023 06:32:45 AM Interpretation: Performing Lab: Notes/Report: [address] [address] Ultrasound Report Signed Patient: Zan Encinas MR#: [id number] : 1960 Acct:[id number] Age/Sex: 63 / M ADM Date: 05/10/23 Loc: . Attending Dr: Bimal Knott MD Ordering Physician: Bimal Knott MD Date of Service: 05/10/23 Procedure(s): US arterial duplex LE BI Accession Number(s): [id number] cc: Quinton Callahan MD; Bimal Knott MD [...] in OV> 05/10/23 1114 DD/ 0949 TD/TT: Anatomic Pathologist: Blood Urea Nitrogen Reviewed date:06/18/2023 01:31:54 PM Interpretation: Performing Lab:[facility], [address] [place] [address] Notes/Report: Blood Urea Nitrogen 12 9-16 mg/dL Creatinine Reviewed date:06/18/2023 01:31:54 PM Interpretation: Performing Lab:[facility], [address] [place] [address] Notes/Report: Creatinine 0.74 0.5-1.4 mg/dL Estimated Glomerular Filt Rate > 60 NOTE: For -[place] individuals, multiply the result by 1.210. Chronic Kidney Disease: Estimated GFR < 60 mL/min/1.73m2 Severe Kidney Disease: Estimated GFR < 15 mL/min/1.73m2 CT angio abd aorta runoff Reviewed date:07/03/2023 10:30:19 AM Interpretation: Performing Lab: Notes/Report: [address] [address] [address] Scan Report Signed Patient: Zan Encinas MR#: [id number] : 1960 Acct:[id number] Age/Sex: 63 / M ADM Date: 06/28/23 Loc: .CT Attending Dr: Bimal Knott MD Ordering Physician: Bimal Knott MD Date of Service: 06/28/23 Procedure(s): CT angio abd aorta runoff Accession Number(s): [id number] cc: Quinton Callahan MD; Bimal Knott MD STUDY PERFORMED: CTA ABDOMEN, PELVIS AND LOWER EXTREMITY RUNOFF WITH CONTRAST HISTORY: Reason for Exam I73.9 - Peripheral vascular disease, unspecified DESCRIPTION: Routine abdominal aorta and lower extremity runoff CTA protocol with contrast was performed. 100 mL of Omnipaque was administered. 3D POSTPROCESSING: Multiple 3-D angiographic images were processed from the initial data set by the [facility] under concurrent physician supervision. [...] in OV> 07/02/23 1003 DD/ 0900 TD/TT: Anatomic Pathologist: Complete Blood Count Auto Di ff Reviewed date:07/24/2023 09:31:57 AM Interpretation: Performing Lab:[facility], [address] [place] [phone] Notes/Report: White Blood Count 7.7 4.8-10.8 X10*3/uL [...] Nitrogen Reviewed date:07/24/2023 09:31:57 AM Interpretation: Performing Lab:[address] [address] Notes/Report: Blood Urea Nitrogen 22 9-16 mg/dL Creatinine Reviewed date:07/24/2023 09:31:57 AM Interpretation: Performing Lab:[address] [address] Notes/Report: Creatinine 0.92 0.5-1.4 mg/dL Creatinine Clr Calc Pharmacy 87.8 eGFR (calculated from the MDRD study equation) and eCrCl (calculated from the Cockcroft-Gault equation) are based on different parameters and may not yield comparable results. If eCrCl result is absurd, please check patient's height/weight. Estimated Glomerular Filt Rate > 60 NOTE: For -[place] individuals, multiply the result by 1.210. Chronic Kidney Disease: Estimated GFR < 60 mL/min/1.73m2 Severe Kidney Disease: Estimated GFR < 15 mL/min/1.73m2 Type and Screen Reviewed date:08/04/2023 05:32:19 AM Interpretation: Performing Lab:[address] [address] Notes/Report: Spec expiration changed by BELLO on 08/03/23 Reason: PAT NURSING: Call Blood Bank (ext. [phone]) to band patient on admission. Type and Screen in effect until 2300 on 08/13/2023. Witnessed by HUSSEIS Blood Type OP Antibody Screen NEGATIVE XR chest 2V Reviewed date:08/28/2023 05:01:16 AM Interpretation: Performing Lab: Notes/Report: [address] [address] XRay Report Signed Patient: Zan Encinas MR#: [id number] : 1960 Acct:[id number] Age/Sex: 63 / M ADM Date: 08/07/23 Loc: MIAN Attending Dr: Aleksandra Archuleta NP Ordering Physician: Aleksandra Archuleta NP Date of Service: 08/07/23 Procedure(s): XR chest 2V Accession Number(s): [id number] cc: Quinton Callahan MD; Aleksandra Archuleta NP [...] in OV> 08/20/23 0929 DD/ 1250 TD/TT: Anatomic Pathologist: JESUS gosia perf SPECT rest & str Reviewed date:08/11/2023 05:22:23 AM Interpretation: Performing Lab: Notes/Report: [address] [address] Nuclear Medicine Report Signed Patient: Zan Encinas MR#: [id number] : 1960 Acct:[id number] Age/Sex: 63 / M ADM Date: 08/09/23 Loc: CARD Attending Dr: hKalif Ferrer MD Ordering Physician: Khalif Ferrer MD Date of Service: 08/09/23 Procedure(s): NM gosia perf SPECT rest str Accession Number(s): [id number] cc: Quinton Callahan MD; Khalif Ferrer MD [...] in OV> 08/10/23 1257 DD/ 1120 TD/TT: Anatomic Pathologist: venous duplex MACARENA RT Reviewed date:08/11/2023 05:22:23 AM Interpretation: Performing Lab: Notes/Report: [address] [address] Ultrasound Report Signed Patient: Zan Encinas MR#: [id number] : 1960 Acct:[id number] Age/Sex: 63 / M ADM Date: 08/10/23 Loc: HO.US Attending Dr: Bimal Knott MD Ordering Physician: Bimal Knott MD Date of Service: 08/10/23 Procedure(s): US venous duplex LE RT Accession Number(s): [id number] cc: Quinton Callahan MD; Bimal Knott MD [...] in OV> 08/10/23 1857 DD/ 1336 TD/TT: Anatomic Pathologist: MARY Complete Blood Count no Diff Reviewed date:08/16/2023 09:15:46 PM Interpretation: Performing Lab:[facility], [address] [place] [address] Notes/Report: White Blood Count 8.5 4.8-10.8 X10*3/uL [...] INR Reviewed date:08/16/2023 09:15:46 PM Interpretation: Performing Lab:[address] [address] Notes/Report: Prothrombin Time 11.2 11.1-13.3 SEC INTERNATIONAL [...] Time Reviewed date:08/16/2023 09:15:46 PM Interpretation: Performing Lab:[facility], [address] [place] [address] Notes/Report: Partial Thromboplastin Time 26.7 26.0-36.8 SEC For information regarding the monitoring of direct thrombin inhibitors, please refer to Pharmacy. Basic Metabolic Panel Reviewed date:08/16/2023 09:15:46 PM Interpretation: Performing Lab:[address] [address] Notes/Report: Sodium 140 135-145 mmol/L Potassium 4.1 [...] Glomerular Filt Rate > 60 NOTE: For -Central [place] individuals, multiply the result by 1.210. Chronic Kidney Disease: Estimated GFR < 60 mL/min/1.73m2 Severe Kidney Disease: Estimated GFR < 15 mL/min/1.73m2 Glucose Random 103 60-115 mg/dL Calcium 9.4 8.4-10.2 mg/dL Complete Blood Count Auto Di ff Reviewed date:08/16/2023 09:15:46 PM Interpretation: Performing Lab:[facility], [address] [place] [phone] Notes/Report: White Blood Count 10.6 4.8-10.8 X10*3/uL [...] Panel Reviewed date:08/16/2023 09:15:46 PM Interpretation: Performing Lab:[address] [address] Notes/Report: Sodium 140 135-145 mmol/L Potassium 3.6 [...] Glomerular Filt Rate > 60 NOTE: For -[place] individuals, multiply the result by 1.210. Chronic Kidney Disease: Estimated GFR < 60 mL/min/1.73m2 Severe Kidney Disease: Estimated GFR < 15 mL/min/1.73m2 Glucose Random 113 60-115 mg/dL Calcium 8.5 8.4-10.2 mg/dL Phosphorus Reviewed date:08/16/2023 09:15:46 PM Interpretation: Performing Lab:[facility], [address] [place] [address] Notes/Report: Phosphorus 2.4 2.7-4.5 mg/dL Magnesium Reviewed date:08/16/2023 09:15:46 PM Interpretation: Performing Lab:[facility], [address] [place] [address] Notes/Report: Magnesium 2.0 1.6-2.6 mg/dL Complete Blood Count Auto Di ff Reviewed date:08/16/2023 09:15:45 PM Interpretation: Performing Lab:[facility], [address] [place] [address] Notes/Report: White Blood Count 10.8 4.8-10.8 X10*3/uL [...] Panel Reviewed date:08/16/2023 09:15:45 PM Interpretation: Performing Lab:[facility], [address] [place] [address] Notes/Report: Sodium 137 135-145 mmol/L Potassium 3.6 [...] Glomerular Filt Rate > 60 NOTE: For -[place] individuals, multiply the result by 1.210. Chronic Kidney Disease: Estimated GFR < 60 mL/min/1.73m2 Severe Kidney Disease: Estimated GFR < 15 mL/min/1.73m2 Glucose Random 117 60-115 mg/dL Calcium 9.0 8.4-10.2 mg/dL Phosphorus Reviewed date:08/16/2023 09:15:45 PM Interpretation: Performing Lab:[address] [address] Notes/Report: Phosphorus 2.1 2.7-4.5 mg/dL Magnesium Reviewed date:08/16/2023 09:15:46 PM Interpretation: Performing Lab:[address] [address] Notes/Report: Magnesium 2.0 1.6-2.6 mg/dL Gram stain Reviewed date:09/30/2023 06:32:33 AM Interpretation: Performing Lab:[facility], [address] [place] [address] Notes/Report: Gram stain Gram stain results: Gram stain No polys Gram stain 1+ epithelial cells Gram stain No organisms seen Routine Culture Reviewed date:09/30/2023 06:32:33 AM Interpretation: Performing Lab:[address] [address] Notes/Report: Routine Culture No growth after 2 days Complete Blood Count Auto Di ff (Not yet reviewed by provider) Interpretation: Performing Lab:[facility], [address] [place] [address] Notes/Report: White Blood Count 11.0 4.8-10.8 X10*3/uL Red Blood Count 4.54 4.60-5.80 X10*6/uL Hemoglobin 15.6 14.0-18.0 g/dl Hematocrit 45.0 42.0-52.0 % Mean Corpuscular Volume 99.1 80.0-98.0 fL Mean Corpuscular Hemoglobin 34.4 27.0-33.0 pg Mean Corpuscular HGB Conc 34.7 31.0-36.0 g/dl Red Cell Distribution Width 11.9 11.0-16.0 % Platelet Count 284 160-400 X10*3/uL Mean Platelet Volume 9.5 9.4-12.4 fL Neutrophils Percent Auto 70.1 45-73 % Imm Gran Pct Auto 0.5 0.0-0.4 % Lymphocytes Percent Auto 18.9 20-40 % Monocytes Percent Auto 8.4 2-11 % Eosinophils Percent Auto 1.4 0-4 % Basophils Percent Auto 0.7 0-2 % NRBC Pct Auto 0.0 0.0-0.2 /100WBC Neutrophils Absolute Auto 7.7 2.0-8.3 x10*3/u L Imm Gran Abs Auto 0.06 0.00-0.03 X10*3/uL Lymphocytes Absolute Auto 2.1 1.2-4.9 X10*3/u L Monocytes Absolute Auto 0.9 0.1-1.2 X10*3/uL Eosinophils Absolute Auto 0.2 0.0-0.4 X10*3/u L Basophils Absolute Auto 0.1 0.0-0.2 X10*3/uL NRBC Abs Auto 0.000 0.0-0.012 X10*3/uL Erythrocyte Sedimentation Ra te (Not yet reviewed by provider) Interpretation: Performing Lab:[facility], [address] [place] [phone] Notes/Report: Erythrocyte Sedimentation Rate 2 0-15 MM/HR Patients with polycythemia and many hemoglobin abnormalities may have depressed sed rates whereas patients with anemia may have elevated sed rates. Prothrombin Time INR (Not ye t reviewed by provider) Interpretation: Performing Lab:[address] [address] Notes/Report: Prothrombin Time 11.2 11.1-13.3 SEC INTERNATIONAL [...] valves: 2.5 - 3.5 Partial Thromboplastin Time (Not yet reviewed by provider) Interpretation: Performing Lab:[facility], [address] [place] [address] Notes/Report: Partial Thromboplastin Time 29.0 26.0-36.8 SEC For information regarding the monitoring of direct thrombin inhibitors, please refer to Pharmacy. Comprehensive Met. Panel (No t yet reviewed by provider) Interpretation: Performing Lab:[facility], [address] [place] [phone] Notes/Report: Sodium 141 135-145 mmol/L Potassium 3.9 3.3-5.1 mmol/L Chloride 110 96-108 mmol/L Carbon Dioxide 24 22-29 mmol/L Anion Gap 11 12-20 Blood Urea Nitrogen 20 9-16 mg/dL Creatinine 0.88 0.5-1.4 mg/dL Creatinine Clr Calc Pharmacy 91.8 eGFR (calculated from the MDRD study equation) and eCrCl (calculated from the Cockcroft-Gault equation) are based on different parameters and may not yield comparable results. If eCrCl result is absurd, please check patient's height/weight. Estimated Glomerular Filt Rate > 60 NOTE: For -[place] individuals, multiply the result by 1.210. Chronic Kidney Disease: Estimated GFR < 60 mL/min/1.73m2 Severe Kidney Disease: Estimated GFR < 15 mL/min/1.73m2 Glucose Random 97 60-115 mg/dL Calcium 9.7 8.4-10.2 mg/dL Bilirubin Total 1.2 0.0-1.0 mg/dL Aspartate Amino Transferase 31 5-37 U/L Alanine Aminotransferase 39 0-40 U/L Total Protein 6.6 6.5-8.0 g/dL Albumin Level 4.1 3.5-5.0 g/dL Alkaline Phosphatase 77 39-117 U/L C Reactive Protein (Not yet reviewed by provider) Interpretation: Performing Lab:[facility], [address] [place] [address] Notes/Report: C Reactive Protein < 0.04 < or = 0.50 mg/dL US venous duplex LE RT (Not yet reviewed by provider) Interpretation: Performing Lab: Notes/Report: [facility] [address] [place] [address] Ultrasound Report Signed Patient: Zan Encinas MR#: [id number] : 1960 Acct:[id number] Age/Sex: 63 / M ADM Date: 10/01/23 Loc: HO.ED Attending Dr: Ordering Physician: Gt Cruz Date of Service: 10/01/23 Procedure(s): US venous duplex LE RT Accession Number(s): [id number] cc: Gt Cruz; Quinton Callahan MD EXAMINATION: US VENOUS ULTRASOUND WITH DOPPLER LOWER EXTREMITY, RIGHT CLINICAL INFORMATION: Redness and edema COMPARISON: None available. TECHNIQUE: Ultrasound of the deep veins is performed from the hip to the calf with compression sonography and color and pulse Doppler assessment. Spectral analysis with color-flow imaging is performed. FINDINGS: There is normal venous compression and respiratory variation and augmented flow. The visualized common femoral vein, superficial femoral vein, profunda femoral vein, popliteal vein, and the trifurcation region shows no evidence of deep venous thrombosis. There is no significant popliteal fossa cyst. There is a complex cystic structure in the proximal to mid medial calf again seen. This currently measures 5.1 x 2.5 x 3.2 cm in size. There is surrounding edema. If the patient's symptoms persist, followup ultrasound in 5 days 7 days might be of value to exclude proximal propagation from a non-visualized calf vein. US/US venous duplex LE RT IMPRESSION: No DVT demonstrated in the right lower extremity. 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 This was noted on the prior study as well and appears similar to that size. Dictated By: Elder Gil MD Signed By: <Electronically signed by Elder Gil MD in OV> 08/05/24 1950 DD/ 43 TD/TT: Anatomic Pathologist: MO XR tibia fibula RT 2V (Not y et reviewed by provider) Interpretation: Performing Lab: Notes/Report: [address] [address] XRay Report Signed Patient: Zan Encinas MR#: [id number] : 1960 Acct:[id number] Age/Sex: 63 / M ADM Date: 10/01/23 Loc: HO.ED Attending Dr: Ordering Physician: Gt Cruz Date of Service: 10/01/23 Procedure(s): XR tibia fibula RT 2V Accession Number(s): [id number] cc: Gt Cruz; Quinton Callahan MD EXAMINATION: XR foot RT 2V, XR tibia fibula RT 2V INDICATION: redness. osteo? COMPARISON: No pertinent prior studies are currently available for comparison. TECHNIQUE: 2 views the right tibia and fibula and 3 views of the right foot FINDINGS: Vascular surgical clips are seen. Bones are normal anatomic alignment with no acute fracture or dislocation. No bony destructive lesions. Soft tissue swelling diffusely throughout the tibia and right ankle. Right foot: Degenerative changes first MTP joint. Bones are normal anatomic alignment with no acute fracture or dislocation seen. Diffuse soft tissue swelling is seen more so along the midfoot to forefoot. XR/XR tibia fibula RT 2V IMPRESSION: Diffuse soft tissue swelling but no acute fracture or dislocation. No bony destructive lesions. Vascular surgical clips are seen. Dictated By: Elder Gil MD Signed By: <Electronically signed by Elder Gil MD in OV> 10/01/231848 DD/ 58 TD/TT: Anatomic Pathologist: MO XR foot RT 2V (Not yet revie wed by provider) Interpretation: Performing Lab: Notes/Report: [address] [address] XRay Report Signed Patient: Zan Encinas MR#: [id number] : 1960 Acct:[id number] Age/Sex: 63 / M ADM Date: 10/01/23 Loc: HO.ED Attending Dr: Ordering Physician: Gt Cruz Date of Service: 10/01/23 Procedure(s): XR foot RT 2V Accession Number(s): [id number] cc: Gt Cruz; Quinton Callahan MD EXAMINATION: XR foot RT 2V, XR tibia fibula RT 2V INDICATION: redness. osteo? COMPARISON: No pertinent prior studies are currently available for comparison. TECHNIQUE: 2 views the right tibia and fibula and 3 views of the right foot FINDINGS: Vascular surgical clips are seen. Bones are normal anatomic alignment with no acute fracture or dislocation. No bony destructive lesions. Soft tissue swelling diffusely throughout the tibia and right ankle. Right foot: Degenerative changes first MTP joint. Bones are normal anatomic alignment with no acute fracture or dislocation seen. Diffuse soft tissue swelling is seen more so along the midfoot to forefoot. XR/XR foot RT 2V IMPRESSION: Diffuse soft tissue swelling but no acute fracture or dislocation. No bony destructive lesions. Vascular surgical clips are seen. Dictated By: Elder Gil MD Signed By: <Electronically signed by Elder Gil MD in OV> 10/01/231848 DD/ 58 TD/TT: Anatomic Pathologist: JOE REASON FOR REFERRAL Reason cintron's esophagiti s [...] 1 tablet by mouth once daily Active Pantoprazole Sodium 40 MG Take 2 tablets by mouth once daily Active Cephalexin 500 MG TAKE 1 CAPSULE BY MO UTH EVERY 6 HOURS FOR 10 DAYS Oral Active Breo Ellipta 200-25 MCG/ACT INHALE 1 PUF F BY MOUTH ONCE DAILY Inhalation Active Albuterol Sulfate HFA 108 (90 Base) MCG/ACT INHALE 2 PUFFS BY MOUTH EVERY 4 TO 6 HOURS NEEDED FOR SHORTNESS OF BREATH OR WHEEZING Inhalation Active Tylenol 325 MG 1 tablet as needed O rally every 4 hrs Active ASA 1 tab Oral Active ibuprofen 1 tab Oral Active SOCIAL [...] Code Notes Problem Overweight (E66.3) Active confirmed 742392241 His body mass index is 29. We discussed diet and nutrition. I recommended aggressive weight loss and sodium restriction. Problem Mixed hyperlipidemia (E78.2) Active confirmed 922683656 A [employer] laboratory database with a fasting lipid profile will be obtained. He was continued on his currrent meddications. Problem Chronic obstructive pulmonary disease, unspecified COPD type (J44.9) Active confirmed 71587740 He has resumed smoking 5 cigarettes per day. He was counseled about this and made aware of the smoking cessation programs in the area. Problem Tobacco dependence (F17.200) Active confirmed 29928663 I have counseled him about smoking cessation and offered to refer him to smoking cessation programs in the community. He said he would consider this and try to cut down. Problem Left bundle branch block (I44.7) Active confirmed Left bundle bra nch block (37013217) The head men's golf coach's interpretation of the perfusion test was that the defect in the septum may be due to the bundle branch block. I will discuss this with cardiology. Problem Hiatal hernia (K44.9) Active confirmed 63909875 The symptoms o f his esophageal reflux and hiatal hernia well controlled with current medications. No change in his regimen as needed. Problem Peripheral arterial disease (I73.9) Active confirmed 337515161 The right foot is warm and pink but swollen with edema extending detention up the right leg which is also red. Problem Hoarseness (R49.0) Active confirmed Hoarseness (90952209) He will be referred to ENT for indirect laryngoscopy. Problem Umbilical hernia without obstruction and without gangrene (K42.9) Active confirmed 6364368 This is asymptomatic and requires no treatment at this time. Problem Benign prostatic hyperplasia with lower urinary tract symptoms (N40.1) Active confirmed 946343481 The tamsulosin was continued today. He will notify me if his symptoms worsen. He has had no retention. He has symptoms of prostatism. Problem Acute right-sided low back pain with right-sided sciatica (M54.41) Active confirmed 163662509 Problem Cintron's esophagus determined by endoscopy (K22.70) Active confirmed 719835268 He is due for an endoscopy and was referred back to his gastroenterolog ist, Dr. Quinton Campos. 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 Problem Carpal tunnel syndrome on both sides (G56.03) Active confirmed [id number] He has a history of carpal tunnel syndrome treated by Dr. Raphael. He is currently asymptomatic. VITAL SIGNS Heart Rate 59 /min 09/24/2023 Temperature 99.0 degrees Fahrenheit 09/24/2023 Blood pressure diastolic 88 mm Hg 09/24/2023 Height 73 in 09/24/2023 Blood pressure systolic 115 mm Hg 09/24/2023 Weight 191 lbs 09/24/2023 BMI 25.2 kg/m2 09/24/2023 Encounters Encounter Location Date Provider Diagnosis Quinton Callahan III, MD [address] [place] [address] [place] [address] 04/17/2023 Quinton Callahan Chronic obstructive pulmonary disease, unspecified COPD type J44.9 ; Cintron's esophagus determined by endoscopy K22.70 ; Benign prostatic hyperplasia with lower urinary tract symptoms N40.1 ; Tobacco dependence F17.200 ; Peripheral arterial disease I73.9 and Hoarseness R49.0 Quinton Callahan III, MD [address] [place] [address] [place] [address] 04/04/2023 Quinton Callahan Benign prostatic hyperplasia with lower urinary tract symptoms N40.1 ; Cintron's esophagus determined by endoscopy K22.70 ; Peripheral arterial disease I73.9 ; Mixed hyperlipidemia E78.2 and Lumbar back pain M54.50 Quinton Callahan III, MD [address] [place] [address] [place] [address] 06/13/2023 Quinton Callahan Peripheral arterial disease I73.9 ; Tobacco dependence F17.200 ; Overweight E66.3 ; Umbilical hernia without obstruction and without gangrene K42.9 ; Acute right-sided low back pain with right-sided sciatica M54.41 ; Chronic obstructive pulmonary disease, unspecified COPD type J44.9 and Cintron's esophagus determined by endoscopy K22.70 Quinton Callahan III, MD [address] [place] [address] [place] [address] 07/09/2023 Quinton Callahan Peripheral arterial disease I73.9 ; Benign prostatic hyperplasia with lower urinary tract symptoms N40.1 ; Cintron's esophagus determined by endoscopy K22.70 ; Chronic obstructive pulmonary disease, unspecified COPD type J44.9 ; Hiatal hernia K44.9 ; Tobacco dependence F17.200 and Overweight E66.3 Quinton Callahan III, MD [address] [place] [address] [place] [address] 08/27/2023 Quinton Callahan Peripheral arterial disease I73.9 ; Benign prostatic hyperplasia with lower urinary tract symptoms N40.1 ; Cintron's esophagus determined by endoscopy K22.70 ; Chronic obstructive pulmonary disease, unspecified COPD type J44.9 ; Overweight E66.3 ; Tobacco dependence F17.200 and Mixed hyperlipidemia E78.2 Quinton Callahan III, MD [address] [place] [address] [place] [address] 09/19/2023 Quinton Callahan Peripheral arterial disease I73.9 ; Open wound T14.8XXA ; Benign prostatic hyperplasia with lower urinary tract symptoms N40.1 ; Cintron's esophagus determined by endoscopy K22.70 ; Chronic obstructive pulmonary disease, unspecified COPD type J44.9 ; Tobacco dependence F17.200 and Mixed hyperlipidemia E78.2 Quinton Callahan III, MD [address] [place] [address] [place] [address] 09/24/2023 Quinton Callahan Peripheral arterial disease I73.9 ; Edema of right lower extremity R60.0 ; Cintron's esophagus determined by endoscopy K22.70 ; Benign prostatic hyperplasia with lower urinary tract symptoms N40.1 ; Overweight E66.3 and Tobacco dependence F17.200 Quinton Callahan III, MD [address] [place] [address] [place] [address] 04/02/2023 Quinton Callahan III, MD [address] [place] [address] [place] [address] 04/02/2023 Quinton Callahan III, MD [address] [place] [address] [place] [address] 07/24/2023 Quinton Callahan III, MD [address] [place] [address] [place] [address] 08/02/2023 Quinton Callahan III, MD [address] [place] [address] [place] [address] 08/09/2023 Quinton Callahan III, MD [address] [place] [address] [place] [address] 08/16/2023 Quinton Callahan III, MD [address] [place] [address] [place] [address] 08/20/2023 Quinton Callahan III, MD [address] [place] [address] [place] [address] 07/24/2023 Quinton Callahan Peripheral arterial disease I73.9 ; Hiatal hernia K44.9 ; 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 Quinton Campos. 04/04/2023 Benign prostatic hyperplasia with lower urinary tract symptoms (ICD-10 - N40.1) The tamsulosin was continued today. He will notify me if his symptoms worsen. He has had no retention. He has symptoms of prostatism. 04/04/2023 Cintron's esophagus determined by endoscopy (ICD-10 - K22.70) He is due for an endoscopy and was referred back to his medical affairs director, Dr. Quinton Campos. 06/13/2023 Tobacco dependence (ICD-10 [...] no retention. He has symptoms of prostatism. 09/19/2023 Peripheral arterial disease (ICD-10 - I73.9) The graft is patent in the claudication has resolved. The superficial wound infection is healing. He will continue with nonadherent sterile dressings and mupirocine. 09/19/2023 Open wound (ICD-10 - T14.8XXA) 09/24/2023 Peripheral arterial disease (ICD-10 - I73.9) The right foot is warm and pink but swollen with edema extending detention up the right leg which is also red. 09/24/2023 Edema of right lower extremity (ICD-10 - R60.0) He is coming back to see the vascular surgeon in the near future. He'll continue on the antibiotic for now. 07/24/2023 Hiatal hernia (ICD-10 - K44.9) The [...] endoscopy and was referred back to his medical affairs director, Dr. Quinton Campos. 08/27/2023 Cintron's esophagus determined by endoscopy (ICD-10 - K22.70) He is due for an endoscopy and was referred back to his medical affairs director, Dr. Quinton Campos. 09/19/2023 Benign prostatic hyperplasia with lower urinary tract symptoms (ICD-10 - N40.1) The tamsulosin was continued today. He will notify me if his symptoms worsen. He has had no retention. He has symptoms of prostatism. 09/24/2023 Cintron's esophagus determined by endoscopy (ICD-10 - K22.70) He is due for an endoscopy and was referred back to his medical affairs director, Dr. Quinton Campos. 07/24/2023 Splenic vein thrombosis (ICD-10 - I82.890) There have been no further signs of thromboembolism. 08/08/2023 Cintron's esophagus determined by endoscopy (ICD-10 - K22.70) He is due for an endoscopy and was referred back to his medical affairs director, Dr. Quinton Campos. 04/17/2023 Tobacco dependence (ICD-10 [...] the smoking cessation programs in the area. 09/19/2023 Cintron's esophagus determined by endoscopy (ICD-10 - K22.70) He is due for an endoscopy and was referred back to his medical affairs director, Dr. Quinton Campos. 09/24/2023 Benign prostatic hyperplasia with lower urinary tract symptoms (ICD-10 - N40.1) The tamsulosin was continued today. He will notify me if his symptoms worsen. He has had no retention. He has symptoms of prostatism. 07/24/2023 Cintron's esophagus determined by endoscopy (ICD-10 - K22.70) He is due for an endoscopy and was referred back to his medical affairs director, Dr. Quinton Campos. 08/08/2023 Chronic obstructive pulmonary [...] recommended aggressive weight loss and sodium restriction. 09/19/2023 Chronic obstructive pulmonary disease, unspecified COPD type (ICD-10 - J44.9) He has resumed smoking 5 cigarettes per day. He was counseled about this and made aware of the smoking cessation programs in the area. 09/24/2023 Overweight (ICD-10 - E66.3) His body mass [...] consider this and try to cut down. 09/19/2023 Tobacco dependence (ICD-10 - F17.200) I have counseled him about smoking cessation and offered to refer him to smoking cessation programs in the community. He said he would consider this and try to cut down. 09/24/2023 Tobacco dependence (ICD-10 - F17.200) I have [...] endoscopy and was referred back to his medical affairs director, Dr. Quinton Campos. 07/09/2023 Overweight (ICD-10 - E66.3) His body mass index is 29. We discussed diet and nutrition. I recommended aggressive weight loss and sodium restriction. 08/27/2023 Mixed hyperlipidemia (ICD-10 - E78.2) A comprehensive laboratory database with a fasting lipid profile will be obtained. He was continued on his currrent meddications. 09/19/2023 Mixed hyperlipidemia (ICD-10 - E78.2) A comprehensive laboratory database with a fasting lipid profile will be obtained. He was continued on his currrent meddications. 07/24/2023 Hoarseness (ICD-10 - R49.0) He will be referred to ENT for indirect laryngoscopy. 07/24/2023 Left bundle branch block (ICD-10 - I44.7) The head men's golf coach's interpretation of the perfusion test was that [...] 04/13/2020 SARS COV2 RNA RT PCR 09/29/2019 Complete Blood Count Auto Diff 4 Erythrocyte Sedimentation Rate 08/05/202 4 Prothrombin Time INR 10/01/2023 Partial Thromboplastin Time 10/01/2023 Comprehensive Met. Panel 10/01/2023 C Reactive Protein 10/01/2023 US venous duplex LE RT 10/01/2023 XR tibia fibula RT 2V 10/01/2023 XR foot RT 2V 10/01/2023 Next Appt Details Provider Name:Quinton Callahan, 10/03/2023 02:45:00 PM, [address] [facility] [address], [place], [address], Provider Name:Quinton Callahan, 10/15/2023 11:00:00 AM, [address] [facility] [address], [place], [address], Insurance Providers Payer Name Payer Address Payer Phone Subscriber Number Group Number Insured Name Patient Relationship to Insured Coverage Start Date Coverage End Date [employer] [address] [place] [address] [phone] [id number] Zan Olivo Self - patient is the insured MEDICARE NGS [address] [place] [address] [id number] Zan Olivo Self - patient is the [...] arteriogram right lower extremity 05/2019 upper endoscopy, [facility], Dr. Quinton Campos, Cintron's esophagus 2014 upper endoscopy and colonosc opy, [facility], Dr. 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
--- OUTSIDE RECORDS SUMMARY | 2023-10-01 23:58 | XMS_ITS ---
Author Organization [facility] Address [address] [place] [address] Care Team Providers Care Director Economic Name Role Phone Quinton Callahan MD Primary Care Provider Unavailab Quinton Alvarez Unavailable [phone] REASON FOR VISIT Patient presents today for EGD, NUGENT'S ESOPHAGUS Encounters Encounter Location Date Provider Diagnosis [facility] [address] [place] [address] 08/14/2023 Quinton Campos PLAN OF TREATMENT No Information
--- OUTSIDE RECORDS SUMMARY | 2023-10-01 23:58 | XMS_ITS ---
Author Organization Quinton Callahan III, MD Address [address] [place] [place] [address] Care Team Providers Care Director Of Conservation Name Role Phone Quinton Callahan Primary Care Provider ALLERGIES Allergen (clinical drug ingredient) Drug/Non Drug Allergy documented on EMR Reaction Allergy Type Onset Date Status No Known Drug Allergy Unknown Drug Allergy Active RESULTS Component Value Reference Range Notes Routine Culture Reviewed date:09/30/2023 06:32:33 AM Interpretation: Performing Lab:[facility], [address] [place] [id number] Notes/Report: Routine Culture No growth after 2 days REASON FOR VISIT Peripheral arterial disease, Recent femoral-popliteal bypass surgery, Wound dehiscence with infection, Benign prostatic hypertrophy, Tobacco dependence, COPD MEDICATIONS Medication SIG (Take, Route, Frequency, Duration) Notes Start Date End Date Status ASA 1 tab Oral Active Breo Ellipta 200-25 MCG/ACT INHALE 1 PUF F BY MOUTH ONCE DAILY Inhalation Active Cephalexin 500 MG TAKE 1 CAPSULE BY [facility] EVERY 6 HOURS FOR 10 DAYS Oral Active Albuterol Sulfate HFA 108 (90 Base) MCG/ACT INHALE 2 PUFFS BY MOUTH EVERY 4 TO 6 HOURS NEEDED FOR SHORTNESS OF BREATH OR WHEEZING Inhalation Active Pantoprazole Sodium 40 MG Take 2 tablets by mouth once daily Active ibuprofen 1 tab Oral Active Tylenol 325 MG 1 tablet as needed O rally every 4 hrs Active Tamsulosin HCl 0.4 MG Take 2 capsules by mouth once daily Active Atorvastatin Calcium 10 MG Take 1 tablet by mouth once daily Active SOCIAL HISTORY [...] cigarette smoker (10-19 cigs/day) VITAL SIGNS BMI 25.59 kg/m2 09/19/2023 Blood pressure systolic 131 mm Hg 09/19/19 Blood pressure diastolic 85 mm Hg 024 Heart Rate 57 /min 09/19/2023 Height 73 in 09/19/2023 Temperature 97.3 degrees Fahrenheit 09/19/19 Weight 194 lbs 09/19/2023 Encounters Encounter Location Date Provider Diagnosis Quinton Callahan III, MD [address] [place] [address] [address] [place], [place] [address] 09/19/2023 Quinton Callahan Peripheral arterial disease I73.9 ; Open wound T14.8XXA ; Benign prostatic hyperplasia with lower urinary tract symptoms N40.1 ; Palmer's esophagus determined by endoscopy K22.70 ; Chronic obstructive pulmonary disease, unspecified COPD type J44.9 ; Tobacco dependence F17.200 and Mixed hyperlipidemia E78.2 ASSESSMENTS Encounter Date Diagnosis Assessment Notes Treatment Notes Treatment Clinical Notes 09/19/2023 Peripheral arterial disease (ICD-10 - I73.9) The graft is patent in the claudication has resolved. The superficial wound infection is healing. He will continue with nonadherent sterile dressings and mupirocine. 09/19/2023 Open wound (ICD-10 - T14.8XXA) 09/19/2023 Benign prostatic hyperplasia with lower urinary tract symptoms (ICD-10 - N40.1) The tamsulosin was continued today. He will notify me if his symptoms worsen. He has had no retention. He has symptoms of prostatism. 09/19/2023 Palmer's esophagus determined by endoscopy (ICD-10 - K22.70) He is due for an endoscopy and was referred back to his day camp counselor, Dr. Quinton Campos. 09/19/2023 Chronic obstructive pulmonary disease, unspecified COPD type (ICD-10 - J44.9) He has resumed smoking 5 cigarettes per day. He was counseled about this and made aware of the smoking cessation programs in the area. 09/19/2023 Tobacco dependence (ICD-10 - F17.200) I have counseled him about smoking cessation and offered to refer him to smoking cessation programs in the community. He said he would consider this and try to cut down. 09/19/2023 Mixed hyperlipidemia (ICD-10 - E78.2) A comprehensive laboratory database with a fasting lipid profile will be obtained. He was continued on his currrent meddications. PLAN OF TREATMENT Medication Medication Name Sig Start Date Stop Date Notes ASA 1 tab Oral Breo Ellipta 200-25 MCG/ACT INHALE 1 PUF F BY MOUTH ONCE DAILY Inhalation Cephalexin 500 MG TAKE 1 CAPSULE BY [facility] EVERY 6 HOURS FOR 10 DAYS Oral Albuterol Sulfate HFA 108 (9 0 Base) MCG/ACT INHALE 2 PUFFS BY MOUTH EVERY 4 TO 6 HOURS NEEDED FOR SHORTNESS OF BREATH OR WHEEZING Inhalation Pantoprazole Sodium 40 MG Take 2 tablets by mouth once daily ibuprofen 1 tab Oral Tylenol 325 MG 1 tablet as needed O rally every 4 hrs Tamsulosin HCl 0.4 MG Take 2 capsules by mouth once daily Atorvastatin Calcium 10 MG Take 1 tablet by mouth once daily Next Appt Details Follow Up: 2 Weeks, Reason: ov Provider Name:Quinton Callahan, 10/03/2023 02:45:00 PM, [address] [place] [address] [address], [place], [address], Provider Name:Quinton Callahan, 10/15/2023 11:00:00 AM, [address] [place] [address] [address], [place], [address], Progress Notes * Examination Category Sub-Category Detail [...] normal, no s3, or vascular bruits LUNGS: , diminished breath sounds throughout , no wheezes, rales, rhonchi , good air movement ABDOMEN: bowel sounds normal, no ascites, no organomegaly, no mass NEUROLOGIC: alert and oriented, cranial nerves 2-12 grossly intact, deep tendon reflexes 2+ symmetrical, motor strength normal upper and lower extremities, sensory exam intact SKIN: no suspicious lesion s, anicteric PERIPHERAL PULSES: normal BREASTS: no masses palpable b ilaterally MUSCULOSKELETAL: 4 cm open wound belo w right tibial plateau with superficial infection and resolving erythema. The right leg below the knee is warm with pulses LYMPH NODES: no enlarged lymph no pinky,spleen normal RECTAL EXAM: not examined PSYCH: alert, oriented ORAL CAVITY: normal, unremarkable
--- OUTSIDE RECORDS SUMMARY | 2023-10-01 23:58 | XMS_ITS ---
Author Organization Quinton Callahan III, MD Address [address] [facility] [place] [address] Care Team Providers Care Filenet Developer Name Role Phone Quinton Callahan Primary Care Provider ALLERGIES Allergen (clinical drug ingredient) Drug/Non Drug Allergy documented on EMR Reaction Allergy Type Onset Date Status No Known Drug Allergy Unknown Drug Allergy Active REASON FOR VISIT Cellulitis right leg, Recent right leg femoral-popliteal bypass graft, Peripheral arterial disease MEDICATIONS Medication SIG (Take, Route, Frequency, Duration) Notes Start Date End Date Status Pantoprazole Sodium 40 MG Take 2 tablets by mouth once daily Active Cephalexin 500 MG TAKE [address] [facility] EVERY 6 HOURS FOR 10 DAYS Oral Active Breo Ellipta 200-25 MCG/ACT INHALE 1 PUF F BY MOUTH ONCE DAILY Inhalation Active Albuterol Sulfate HFA 108 (90 Base) MCG/ACT INHALE 2 PUFFS BY MOUTH EVERY 4 TO 6 HOURS NEEDED FOR SHORTNESS OF BREATH OR WHEEZING Inhalation Active ASA 1 tab Oral Active Tamsulosin HCl 0.4 MG Take 2 [...] cigarette smoker (10-19 cigs/day) VITAL SIGNS BMI 25.2 kg/m2 09/24/2023 Blood pressure systolic 115 mm Hg 09/24/19 24 Blood pressure diastolic 88 mm Hg 024 Heart Rate 59 /min 09/24/2023 Height 73 in 09/24/2023 Temperature 99.0 degrees Fahrenheit 09/24/19 24 Weight 191 lbs 09/24/2023 Encounters Encounter Location Date Provider Diagnosis Quinton Callahan III, MD [address] [place] [address] [place] [address] 09/24/2023 Quinton Callahan Peripheral arterial disease I73.9 ; Edema of right lower extremity R60.0 ; Palmer's esophagus determined by endoscopy K22.70 ; Benign prostatic hyperplasia with lower urinary tract symptoms N40.1 ; Overweight E66.3 and Tobacco dependence F17.200 ASSESSMENTS Encounter Date Diagnosis Assessment Notes Treatment Notes Treatment Clinical Notes 09/24/2023 Peripheral arterial disease (ICD-10 - I73.9) The right foot is warm and pink but swollen with edema extending long-term up the right leg which is also red. 09/24/2023 Edema of right lower extremity (ICD-10 - R60.0) He is coming back to see the vascular surgeon in the near future. He'll continue on the antibiotic for now. 09/24/2023 Palmer's esophagus determined by endoscopy (ICD-10 - K22.70) He is due for an endoscopy and was referred back to his stock selector, Dr. Quinton Campos. 09/24/2023 Benign prostatic hyperplasia with lower urinary tract symptoms (ICD-10 - N40.1) The tamsulosin was continued today. He will notify me if his symptoms worsen. He has had no retention. He has symptoms of prostatism. 09/24/2023 Overweight (ICD-10 - E66.3) His body mass index is 29. We discussed diet and nutrition. I recommended aggressive weight loss and sodium restriction. 09/24/2023 Tobacco dependence (ICD-10 - F17.200) I have counseled him about smoking cessation and offered to refer him to smoking cessation programs in the community. He said he would consider this and try to cut down. PLAN OF TREATMENT Medication Medication Name Sig Start Date Stop Date Notes Pantoprazole Sodium 40 MG Take 2 tablets by mouth once daily Cephalexin 500 MG TAKE [address] [facility] EVERY 6 HOURS FOR 10 DAYS Oral Breo Ellipta 200-25 MCG/ACT INHALE 1 PUF F BY MOUTH ONCE DAILY Inhalation Albuterol Sulfate HFA 108 (9 0 Base) MCG/ACT INHALE 2 PUFFS BY MOUTH EVERY 4 TO 6 HOURS NEEDED FOR SHORTNESS OF BREATH OR WHEEZING Inhalation ASA 1 tab Oral Tamsulosin HCl 0.4 MG Take 2 capsules by mouth once daily Atorvastatin Calcium 10 MG Take 1 tablet by mouth once daily Tylenol 325 MG 1 tablet as needed O rally every 4 hrs ibuprofen 1 tab Oral Next Appt Details Follow Up: 2 Weeks, Reason: ov Provider Name:Quinton Callahan, 10/03/2023 02:45:00 PM, [address] [place] [address] [address], [place], [address], Provider Name:Quinton Callahan, 10/15/2023 11:00:00 AM, [address] [place] [address] [address], [place], [address], Progress Notes * Examination Category Sub-Category Detail [...] no suspicious lesion s, anicteric PERIPHERAL PULSES: Intact right foot BREASTS: no masses palpable b ilaterally MUSCULOSKELETAL: extremities unremark able, no clubbing, cyanosis or edema, Recent surgical incisions right leg, below right knee has open, there is no sign of infection, although the wound the right leg is edematous and erythematous. LYMPH NODES: no enlarged lymph no pinky,spleen [...] days?: No Have you travelled internationally in [facility] last 10 days?: No Have you been exposed to COVID-19 in the past?: No
--- OUTSIDE RECORDS SUMMARY | 2023-10-01 23:58 | XMS_ITS ---
Author Organization Quinton Callahan III, MD Address [address] [place] [address] Care Team Providers Care Ribbon Hanking Machine Operator Name Role Phone Quinton Callahan Primary Care [...] Date Provider Diagnosis Quinton Callahan III, MD [address] [place] [address] [place] [address] 08/27/2023 Quinton Callahan Peripheral arterial disease I73.9 [...] endoscopy and was referred back to his sampling theory teacher, Dr. Quinton Campos. 08/27/2023 Chronic obstructive pulmonary disease, unspecified [...] son: Annual Exam, OV Provider Name:Quinton Callahan, 10/03/2023 02:45:00 PM, [address] [place] [address] [address], [place], [address], Provider Name:Quinton Callahan, 10/15/2023 11:00:00 AM, [address] [place] [address] [address], [place], [address], Progress Notes * Examination Category Sub-Category Detail [...] Have you been exposed to the virus withi n the last 10 days?: No Have you travelled internationally in last 10 days?: No Have you been exposed to COVID-19 in the past?: No
--- OUTSIDE RECORDS SUMMARY | 2023-10-01 23:58 | XMS_ITS | Patient Health Record ---
Author Organization [facility] Address [address] [place] [address] Care Team Providers Care Customs Entry Clerk Name Role Phone Quinton Callahan MD Primary Care Provider Quinton Mao Unavailable [phone] REASON FOR REFERRAL No Information MEDICATIONS Medication [...] malignant neoplasm of colon (Z12.11) Active confirmed 731040208 Problem Palmer's esophagus without dysplasia (K22.70) Active confirmed [id number] Problem Gastroesophageal reflux disease without esophagitis (K21.9) Active confirmed [id number] Encounters Encounter Location Date Provider Diagnosis [facility] [address] [place] [address] 08/14/2023 Quinton Campos [facility] [address] [place] [address] 08/14/2023 Quinton Campos PLAN OF TREATMENT Future Test Test Name Order Date UPPER GI ENDOSCOPY 03/19/2013 UPPER GI ENDOSCOPY 06/11/2019 COLONOSCOPY 06/11/2019 Insurance Providers Payer Name Payer Address Payer Phone Subscriber Number Group Number Insured Name Patient Relationship to Insured Coverage Start Date Coverage End Date MEDICARE OF [place] [address] [place] [address] [id number] JUAN FRANCISCO HOWELL Self - patient is the insured MEDICAL (GENERAL) HISTORY Medical History History ICD Code Colonoscopy in 12/2009 neg e xcept for a hyperplastic polyp, diverticulosis, and internal hemmorhoids GERD with a small area of Ba rrett's esophagus--EGD in 12/2009-small HH-bx neg for dysplasia Splenic vein thrombosis in approx 1999-- had previously been on Coumadin Denies RI,DM,CVA,renal disease EGD 04/2013 with small area o f Palmer's, no dysplasia nor esophagitis; small hiatal hernia COPD PVD with claudication as below Surgical History Surgery Date(Month/Year) 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 Knott 06/18/2019
[2023-10-02] VITALS (7 sets, daily range): BP systolic 127–157; BP diastolic 66–75; PULSE 55–73; RESP 16–18; TEMP 36–36.8; O2SAT 97–98
--- NOTE | 2023-10-02 00:23 | ED.EXTPRO ---
HPI - Extremity Problem General Chief complaint: Extremity Problem Stated complaint: post op infection Time Seen by Provider: 10/01/23 23:56 History of Present Illness HPI Narrative: Patient is a 63-year-old male has a history of fem-pop bypass in July. It was done by Dr. Knott at [facility]. Presented today with having increasing swelling to the leg. Has been treated on an outpatient basis with Keflex and doxycycline in the past. Just finished his Keflex yesterday. Today the leg swelled up. Had increasing pain. Patient has no systemic fever. No vomiting. No chest pain or shortness of breath. No diaphoresis. Came in because of the increased redness. Patient also complained at at the bottom of the incision site there is an area that seems to be open with some purulent discharge noted. Positive history of COPD positive history of smoking positive history peripheral vascular disease positive history of atrial fibrillation no documented anticoagulation Related Data Home Medications ?Medication ?Instructions ?Recorded ?Confirmed aspirin 81 mg tablet,delayed 81 mg PO DAILY 01/12/20 08/14/23 release (Luis Low Dose Aspirin) pantoprazole 40 mg tablet,delayed 80 mg PO DAILY@0630 01/12/20 08/14/23 release tamsulosin 0.4 mg capsule 0.8 mg PO DAILY 01/12/20 08/14/23 atorvastatin 10 mg tablet 10 mg PO DAILY 05/04/20 08/14/23 acetaminophen 325 mg tablet 975 mg PO TID PRN Pain 08/03/23 08/14/23 (Tylenol) ibuprofen 200 mg tablet 400 mg PO Q8H PRN Pain 08/03/23 08/13/23 ascorbic acid (vitamin C) 500 mg 500 mg PO DAILY 08/14/23 08/14/23 tablet (Vitamin C) vitamin E 268 mg (400 unit) capsule 268 mg PO DAILY 08/14/23 08/14/23 cephalexin 500 mg capsule 500 mg PO BID 09/25/23 Previous Rx's ?Medication ?Instructions ?Recorded albuterol sulfate 90 mcg/actuation 2 puff inhalation Q4-6H PRN 08/07/23 aerosol inhaler shortness of breath or wheezing #1 ea fluticasone furoate 200 1 inh inhalation DAILY #60 ea 08/07/23 mcg-vilanterol 25 mcg/dose inhalation powder (Breo Ellipta) nicotine 21 mg/24 hr daily 1 patch transdermal DAILY #28 ea 08/10/23 transdermal patch docusate sodium 100 mg capsule 100 mg PO BID #20 caps 08/17/23 (Colace) oxycodone-acetaminophen 5 mg-325 1 tab PO TID PRN pain #20 tabs 08/17/23 mg tablet (Percocet) doxycycline hyclate 100 mg capsule 100 mg PO BID 10 days #20 caps 09/18/23 mupirocin 2 % topical ointment 1 appl topical BID #22 grams 09/18/23 Allergies Allergy/AdvReac Type Severity Reaction Status Date / Time No Known Allergies Allergy Verified 10/01/23 17:40 Review of Systems Review of Systems: Positive warmth and swelling to the right lower extremity Yes all other systems are reviewed and are negative [facility] Past Medical History Attestation statement: The following information was validated with the patient. Medical History Arthritis BPH (benign prostatic hyperplasia) Elevated cholesterol S/P angiogram of extremity (07/18/23) Atrial fibrillation History of Palmer's esophagus Splenic vein thrombosis History of femoral angiogram GERD (gastroesophageal reflux disease) COPD (chronic obstructive pulmonary disease) Peripheral arterial disease Surgical History Hx of oral surgery Hx of tracheostomy History of esophagogastroduodenoscopy (EGD) H/O colonoscopy Social History Social History Household Members: None Housing: Apartment Are you a primary healthcare corporate account director to a significant other at home: No Do you presently have visiting nurse or other home services: No Patient Tobacco Use Status: Former Tobacco user Tobacco use type: Cigarette Cigarette Packs Per Day: 1 Cigarettes Per Day: 20.0 Years Smoked: 41 e-Cigarette/Vaping Use: Former Use Substance Use Type: Marijuana Advance Directives: No Advance Directives Information Provided: Yes service: No Physical Exam Vital Signs: Vital Signs: Last Vital Signs Temp 98.2 F 10/01/23 23:44 Pulse 65 10/01/23 23:44 Resp 16 10/01/23 23:44 BP 137/84 10/01/23 23:44 Pulse Ox 99 10/01/23 23:44 O2 Del Method Room Air 10/01/23 23:44 BMI result Body Mass Index 26.4 Appearance: Alert. Oriented X3. No acute distress. Eyes: Pupils equal, round and reactive to light. ENT: Pharynx normal. Neck: Normal inspection. Neck supple. No lymph nodes noted. No crepitus CVS: Normal heart rate and rhythm. Pulses normal. Normal S1 and S2 Respiratory: No respiratory distress. Breath sounds normal. No Wheezing. No rales Abdomen: Soft and nontender. No rigidity. No distention. good BS x4 Skin: Skin warm and dry. Normal skin color. Normal skin turgor. Extremities: Right lower extremity shows significant redness swelling edema there is dopplerable pulses noted at dorsalis pedis. Patient's mood from the fem-pop in the more distal aspect is open. With small amount of purulent material being discharged. There is redness over the calf and over the foot. Swelling noted. Neuro: Oriented X 3. No motor deficit. No sensory deficit. Moving all extermities. No slurred speech Medical Decision Making Medical Decision Making MDM Narrative: Doppler of the lower extremity showed no evidence of DVT. Patient is not on any blood thinners. There is dopplerable pulses, most likely the graft is patent. Patient had a saphenous vein graft. Less likely to be infected. Patient is white count is slightly elevated at 11. Cultures were done. Antibiotic was started. Patient was given Zosyn and vancomycin for empiric coverage as patient failed outpatient therapy with Keflex and doxycycline. My interpretation patient's x-ray of the foot x-ray of the leg were both grossly negative. I reviewed radiology's reading. I discussed the case with patient and with Dr. Knott from vascular surgery. Agree with plan of admission. Wanted patient to be under the hospitalist service. Hospitalist service was consulted. Currently in stable condition awaiting admission Differential Diagnosis Differential Diagnoses: The differential diagnosis associated with the presentation includes Cellulitis Admission/Observation Consideration of admission/observation: Escalation of care including admission/observation considered Consult Healthcare Provider Management of the patient was discussed with: Hospitalist and Chief Building Inspector (Vascular surgery) Lab Data [facility] Lab Attestation statement: I reviewed the patient's lab results. 10/01/23 19:14 10/01/23 19:14 Labs: Lab Results 10/01/23 Range/Units 19:14 WBC 11.0 H (4.8-10.8) X10*3/uL RBC 4.54 L (4.60-5.80) X10*6/uL Hgb 15.6 (14.0-18.0) g/dl Hct 45.0 (42.0-52.0) % MCV 99.1 H (80.0-98.0) fL MCH 34.4 H (27.0-33.0) pg MCHC 34.7 (31.0-36.0) g/dl RDW 11.9 (11.0-16.0) % Plt Count 284 (160-400) X10*3/uL MPV 9.5 (9.4-12.4) fL Immature Gran % (Auto) 0.5 H (0.0-0.4) % Neut % (Auto) 70.1 (45-73) % Lymph % (Auto) 18.9 L (20-40) % [place] % (Auto) 8.4 (2-11) % Eos % (Auto) 1.4 (0-4) % Baso % (Auto) 0.7 (0-2) % Lymph # (Auto) 2.1 (1.2-4.9) X10*3/uL [place] # (Auto) 0.9 (0.1-1.2) X10*3/uL Eos # (Auto) 0.2 (0.0-0.4) X10*3/uL Baso # (Auto) 0.1 (0.0-0.2) X10*3/uL Abs Immat Gran (auto) 0.06 H (0.00-0.03) X10*3/uL Absolute Neuts (auto) 7.7 (2.0-8.3) x10*3/uL Absolute Nucleated RBC 0.000 (0.0-0.012) X10*3/uL Nucleated RBC % (auto) 0.0 (0.0-0.2) /100WBC ESR 2 (0-15) MM/HR PT 11.2 (11.1-13.3) SEC INR 0.9 (0.9-1.1) APTT 29.0 (26.0-36.8) SEC Sodium 141 (135-145) mmol/L Potassium 3.9 (3.3-5.1) mmol/L Chloride 110 H (96-108) mmol/L Carbon Dioxide 24 (22-29) mmol/L Anion Gap 11 L (12-20) BUN 20 H (9-16) mg/dL Creatinine 0.88 (0.5-1.4) mg/dL Estim Creat Clear Calc 91.8 Estimated GFR > 60 Random Glucose 97 (60-115) mg/dL Calcium 9.7 (8.4-10.2) mg/dL Total Bilirubin 1.2 H (0.0-1.0) mg/dL AST 31 (5-37) U/L ALT 39 (0-40) U/L Alkaline Phosphatase 77 (39-117) U/L C-Reactive Protein < 0.04 (< or = 0.50) mg/dL Total Protein 6.6 (6.5-8.0) g/dL Albumin 4.1 (3.5-5.0) g/dL Independent Interpretation I performed an independent interpretation of an: Plain X-Ray (X-rays of the foot and tib-fib showed no acute fracture) Radiology Impression Discussion of test interpretation with radiology: I have reviewed the radiologist's reading. External Record Review External record reviewed: Inpatient record Chronic Conditions Patient?s care impacted by: Hypertension Peripheral vascular disease status post fem-pop Discharge Plan Discharge Clinical Impression: Peripheral arterial disease, Atrial fibrillation, COPD (chronic obstructive pulmonary disease), Cellulitis Patient Disposition: Admitted As Inpatient Prescriptions: No Action nicotine 21 mg/24 hr patch 24 hour 1 patch transdermal DAILY Qty: 28 0RF aspirin [Luis Low Dose Aspirin] 81 mg Tablet,Delayed Release (Dr/Ec) 81 mg PO DAILY tamsulosin 0.4 mg Capsule 0.8 mg PO DAILY pantoprazole 40 mg Tablet,Delayed Release (Dr/Ec) 80 mg PO DAILY@0630 acetaminophen [Tylenol] 325 mg Tablet 975 mg PO TID PRN (Reason: Pain) ibuprofen 200 mg Tablet 400 mg PO Q8H PRN (Reason: Pain) ascorbic acid (vitamin C) [Vitamin C] 500 mg Tablet 500 mg PO DAILY vitamin E 268 mg (400 unit) Capsule 268 mg PO DAILY oxycodone-acetaminophen [Percocet] 5-325 mg tablet 1 tab PO TID PRN (Reason: pain) Qty: 20 0RF Rx Instructions: Partial Fill upon patient request. docusate sodium [Colace] 100 mg capsule 100 mg PO BID Qty: 20 0RF doxycycline hyclate 100 mg capsule 100 mg PO BID 10 Days Qty: 20 0RF mupirocin 2 % ointment 1 appl topical BID Qty: 22 0RF atorvastatin 10 mg tablet 10 mg PO DAILY albuterol sulfate 90 mcg/actuation HFA aerosol inhaler 2 puff inhalation Q4-6H PRN (Reason: shortness of breath or wheezing) Qty: 1 6RF fluticasone furoate-vilanterol [Breo Ellipta] 200-25 mcg/dose blister with device 1 inh inhalation DAILY Qty: 60 6RF cephalexin 500 mg capsule 500 mg PO BID Print Language: Portuguese
--- NOTE | 2023-10-02 00:46 | PC.NURSE ---
doppler pulse felt
[2023-10-02] MEDS: Piperacillin Sodium/Tazobactam 4.5 GM in 0.9 % Sodium Chloride 100 ML IV (01:05)
[2023-10-02 01:07] LABS: Lactic Acid 0.7 mmol/L (0.5-2.0)
[2023-10-02] MEDS: vancomycin HCL 1,250 MG in 0.9 % Sodium Chloride 250 ML 166.67 MG IV (01:41)
[2023-10-02] MEDS: Nicotine 21 MG PATCH.TD24 TRANSDERMA (02:45)
[2023-10-02] MEDS: oxyCODONE HCl Immed Release 5 MG TABLET PO (02:45)
--- NOTE | 2023-10-02 03:21 | P.HPHOSP_ITS ---
History of Present Illness Date of Service: 10/02/23 Attending physician on admission: Akash Navas Chief Complaint: Right leg swelling and pain Zan Encinas is a 63 years old man with past medical history significant for PAD s/p fem=pop bypass with reverse saphenous vein graft (July 2023) s/p right SFA stent right popliteal plasty, COPD -no home O2, and atrial fibrillation presents to the emergency department complaining of worsening right lower leg swelling, pain (8/10) and redness over the last 2 days. He has been taking a course of cephalexin and doxycycline. He denies fever or chills. He did not report any headache, palpitations or dizziness. Denied any acute cardiopulmonary or gastrointestinal symptoms. He has an ongoing tobacco smoker. Drinks alcohol 20 nips weekly. In the ED, he was found to have normal vital signs. Blood workup showed leukocytosis of 11.0. Hemoglobin and platelets are normal. INR is normal. There is no lactic acidosis. There are no significant electrolyte imbalances. Creatinine is normal. LFTs are normal except for minimal elevation of total bilirubin, 1.2. CRP < 0.04. Left lower extremity venous US shows acid collections seen in the medial calf possibly representing a dissecting Santoro's cyst. Left tib-fib x-ray showed diffuse soft tissue swelling but no acute fracture or dislocations. ED tx: Zosyn 4.5 g IV, vancomycin 1250 mg IV. Review of Systems 2 Review of Systems: All 12 systems were reviewed and normal except as noted in HPI. [facility] Medical History Arthritis BPH (benign prostatic hyperplasia) Elevated cholesterol S/P angiogram of extremity (07/18/23) Atrial fibrillation History of Palmer's esophagus Splenic vein thrombosis History of femoral angiogram GERD (gastroesophageal reflux disease) COPD (chronic obstructive pulmonary disease) Peripheral arterial disease Surgical History Hx of oral surgery Hx of tracheostomy History of esophagogastroduodenoscopy (EGD) H/O colonoscopy Social History Household Members: None Housing: Apartment Are you a primary home care aide to a significant other at home: No Do you presently have visiting nurse or other home services: No Patient Tobacco Use Status: Former Tobacco user Tobacco use type: Cigarette Cigarette Packs Per Day: 1 Cigarettes Per Day: 20.0 Years Smoked: 41 e-Cigarette/Vaping Use: Former Use Substance Use Type: Marijuana Advance Directives: No Advance Directives Information Provided: Yes service: No Meds Allergies Allergy/AdvReac Type Severity Reaction Status Date / Time No Known Allergies Allergy Verified 10/01/23 17:40 Active Medications: Current Medications Acetaminophen (Acetaminophen 325 Mg Tablet) 975 mg PO Q6H PRN PRN Reason: Pain, Mild (Pain Scale 1-3), fever or headache Enoxaparin Sodium (Enoxaparin Sodium 40 Mg/0.4 Ml Syringe) 40 mg SUBCUT Q24H [facility] Melatonin (Melatonin 3 Mg Tablet) 6 mg PO BEDTIME PRN PRN Reason: Insomnia Nicotine (Nicotine 21 Mg Patch.Td24) 21 mg TRANSDERMA DAILY [facility] Last Admin: 10/02/23 02:45 Dose: 21 mg Oxycodone HCl (Oxycodone Hcl Immed Release 5 Mg Tablet) 5 mg PO Q6H PRN PRN Reason: Pain, Severe (Pain Scale 7-10) Pharmacy Consult (Consult Rx Vancomycin Dosing) 1 each MISCELLANE DAILY PRN PRN Reason: Consult order Sodium Chloride (0.9 % Sodium Chloride Flush 3 Ml Syringe) 3 ml IVFLUSH QSHIFT [facility] Home Medications ?Medication ?Instructions ?Recorded ?Confirmed ?Last Taken ?Type aspirin 81 mg tablet,delayed 81 mg PO DAILY 01/12/20 08/14/23 08/12/23 History release (Luis Low Dose Aspirin) pantoprazole 40 mg tablet,delayed 80 mg PO DAILY@0630 01/12/20 08/14/23 08/13/23 History release tamsulosin 0.4 mg capsule 0.8 mg PO DAILY 01/12/20 08/14/23 08/13/23 History atorvastatin 10 mg tablet 10 mg PO DAILY 05/04/20 08/14/23 08/13/23 History acetaminophen 325 mg tablet 975 mg PO TID PRN Pain 08/03/23 08/14/23 Unknown History (Tylenol) ibuprofen 200 mg tablet 400 mg PO Q8H PRN Pain 08/03/23 08/13/23 08/06/23 History ascorbic acid (vitamin C) 500 mg 500 mg PO DAILY 08/14/23 08/14/23 08/12/23 History tablet (Vitamin C) vitamin E 268 mg (400 unit) capsule 268 mg PO DAILY 08/14/23 08/14/23 08/12/23 History cephalexin 500 mg capsule 500 mg PO BID 09/25/23 Unknown History Physical Exam 2 Vital Signs and Narrative: Vital Signs: Last Vital Signs Temp 98.2 F 10/02/23 01:52 Pulse 63 10/02/23 01:52 Resp 16 10/02/23 01:52 BP 127/69 10/02/23 01:52 Pulse Ox 97 10/02/23 01:52 O2 Del Method Room Air 10/02/23 01:52 BMI result Body Mass Index 26.4 Constitutional - Awake and Alert, No apparent distress HEENT - PERRL, EOMI Heart - S1S2, RRR, No edema Lungs - Normal lung expansion, Normal respiratory effort, No respiratory distress. Mild end expiratory wheezes Abdomen - NT / ND; +BS; No rebound or guarding Extremities: Left leg: distal pulses 1+ Musculoskeletal - Normal inspection, normal ROM Skin - Warm/Dry Neurological - Alert & oriented x3. No focal weakness grossly noted. Normal speech. Psychological - Appropriate affect Results Labs 10/01/23 19:14 10/01/23 19:14 Labs: Laboratory Results - last 24 hr 10/01/23 10/02/23 19:14 00:47 MCV 99.1 H MCH 34.4 H MCHC 34.7 RDW 11.9 Plt Count 284 MPV 9.5 Immature Gran % (Auto) 0.5 H Neut % (Auto) 70.1 Lymph % (Auto) 18.9 L [place] % (Auto) 8.4 Eos % (Auto) 1.4 Baso % (Auto) 0.7 Lymph # (Auto) 2.1 [place] # (Auto) 0.9 Eos # (Auto) 0.2 Baso # (Auto) 0.1 Abs Immat Gran (auto) 0.06 H Absolute Neuts (auto) 7.7 Absolute Nucleated RBC 0.000 Nucleated RBC % (auto) 0.0 ESR 2 PT 11.2 INR 0.9 APTT 29.0 Anion Gap 11 L Estim Creat Clear Calc 91.8 Estimated GFR > 60 Random Glucose 97 Lactic Acid 0.7 Calcium 9.7 Total Bilirubin 1.2 H AST 31 ALT 39 Alkaline Phosphatase 77 C-Reactive Protein < 0.04 Total Protein 6.6 Albumin 4.1 Imaging Radiologist's Impressions: Impressions Foot X-Ray 10/01/23 17:59 IMPRESSION: Diffuse soft tissue swelling but no acute fracture or dislocation. No bony destructive lesions. Vascular surgical clips are seen. Tibia/Fibula X-Ray 10/01/23 17:59 IMPRESSION: Diffuse soft tissue swelling but no acute fracture or dislocation. No bony destructive lesions. Vascular surgical clips are seen. Venous Duplex 10/01/23 18:44 IMPRESSION: No DVT demonstrated in the right lower extremity. 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 This was noted on the prior study as well and appears similar to that size. Assessment and Plan (1) Cellulitis of right lower extremity: Status: Acute (2) Nicotine dependence, cigarettes, uncomplicated: Status: Acute (3) Bakers cyst: Qualifiers: Laterality: right Qualified Code(s): M71.21 - Synovial cyst of popliteal space [Santoro], right knee Status: Acute Plan Zan Encinas is a 63 y/o man with PMHx significant for PAD s/p fem=pop bypass with reverse saphenous vein graft (July 2023) s/p right SFA stent right popliteal plasty admittted with: * Right lower extremity cellulitis associated with possible dissecting Santoro's cyst. Admit to hospitalist service. Continue empiric IV antibiotic therapy with vancomycin and Zosyn. Start therapy with Toradol IV and oxycodone as needed. Elevate extremity. Apply ice. Surgery consult. * Hyperlipidemia. Continue atorvastatin. * GERD. Continue pantoprazole. * COPD. Continue home inhalers. * BPH. Continue tamsulosin. * Tobacco smoking. Tobacco cessation education. Nicotine patch. DVT prophylaxis: Heparin Code status: Full Patient will need hospitalization for at least 2 midnights for right lower extremity cellulitis and possible dissecting Santoro's cyst treatment with IV antibiotic therapy, rest, ice and anti-inflammatory therapy. Patient also will need evaluation by surgery. Quality Stroke Does the patient have a stroke diagnosis?: No VTE Prior VTE?: No VTE Risk Level:: Medical - moderate - high VTE Device Contraindication: Treatment Not Indicated VTE Drug Contraindication: N/A - Med Ordered
[2023-10-02] MEDS: Ketorolac Tromethamine 15 MG/ML VIAL IVPUSH ×2 (04:35→09:05)
--- NOTE | 2023-10-02 05:35 | PC.NURSE ---
PP to right foot positive with Doppler, area marked down.
[2023-10-02] MEDS: Piperacillin Sodium/Tazobactam 3.375 GM in 0.9 % Sodium Chloride 50 ML IV ×3 (06:09→17:54)
--- NOTE | 2023-10-02 07:38 | PHA.PROG ---
Admission Date/Time: October 02, 2023 02:16 Indication: Weight in k.451 kg Adjusted body weight in Kg: [place] body weight in Kg: Obesity Dosing Indication % IBW: Serum Creatinine - Last 168 Hours 10/01/23 19:14 Creatinine 0.88 Estimated CrCl and GFR - Last 168 Hours 10/01/23 19:14 Estim Creat Clear Calc 91.8 Estimated GFR > 60 Vancomycin Loading Dose: 1250 mg Current Vancomycin Dosing Regimen: 1000 mg q12h Vancomycin Monitoring using AUC goal of 400 - 600 range with trough as surrogate marker: AUC 487 mg/L and trough 15.6 mg/L Date and Time for next Vancomycin Level to be drawn: 10/02 @1200 Pharmacist Comments on Vancomycin Plan: Received a 1250mg dose this morning at 0141. Will continue with 1g q12h and get a trough tomorrow before the 4th dose. Vancomycin dosing will take advantage of [employer] as a clinical decision support tool that uses Bayesian modeling to calculate individual patient's pharmacokinetic parameters and forecast the patient's drug concentration time course with the target goal AUC 24 range of 400 - 600 mg/L/hr.
[2023-10-02] MEDS: Enoxaparin Sodium 40 MG/0.4 ML SYRINGE SUBCUT (09:06)
[2023-10-02] MEDS: 0.9 % Sodium Chloride Flush 3 ML SYRINGE IVFLUSH ×2 (09:06→13:49)
--- NOTE | 2023-10-02 09:21 | HO.PM.IMPN ---
Subjective Subjective Date of Service: 10/02/23 Interval History: less rle pain Physical Exam Vital Signs: Vital Signs: Last Vital Signs Temp 98.3 F 10/02/23 07:32 Pulse 56 10/02/23 07:32 Resp 17 10/02/23 07:32 BP 131/72 10/02/23 07:32 Pulse Ox 97 10/02/23 07:32 O2 Del Method Room Air 10/02/23 07:32 BMI result Body Mass Index 26.4 RLE erythema, swelling, tender Objective Data Active Medications Acetaminophen (Acetaminophen 325 Mg Tablet) 975 mg PO Q6H PRN PRN Reason: Pain, Mild (Pain Scale 1-3), fever or headache Enoxaparin Sodium (Enoxaparin Sodium 40 Mg/0.4 Ml Syringe) 40 mg SUBCUT Q24H [facility] Last Admin: 10/02/23 09:06 Dose: 40 mg Documented By: JARET Piperacillin Sod/Tazobactam (Sod 3.375 gm/ Sodium Chloride) 50 mls @ 100 mls/hr IV 0000,0600,1200,1800 [facility] Last Infusion: 10/02/23 06:49 Dose: Infused Documented By: JARET Vancomycin HCl 1,000 mg/ (Sodium Chloride) 270 mls @ 270 mls/hr IV Q12H [facility] Ketorolac Tromethamine (Ketorolac Tromethamine 15 Mg/Ml Vial) 15 mg IVPUSH Q6H [facility] Stop: 10/02/23 10:01 Last Admin: 10/02/23 09:05 Dose: 15 mg Documented By: JARET Melatonin (Melatonin 3 Mg Tablet) 6 mg PO BEDTIME PRN PRN Reason: Insomnia Nicotine (Nicotine 21 Mg Patch.Td24) 21 mg TRANSDERMA DAILY [facility] Last Admin: 10/02/23 02:45 Dose: 21 mg Documented By: FREDERIC Oxycodone HCl (Oxycodone Hcl Immed Release 5 Mg Tablet) 5 mg PO Q6H PRN PRN Reason: Pain, Severe (Pain Scale 7-10) Pharmacy Consult (Consult Rx Vancomycin Dosing) 1 each MISCELLANE DAILY PRN PRN Reason: Consult order Sodium Chloride (0.9 % Sodium Chloride Flush 3 Ml Syringe) 3 ml IVFLUSH QSHIFT [facility] Last Admin: 10/02/23 09:06 Dose: 3 ml Documented By: JARET Labs 10/01/23 19:14 10/01/23 19:14 Labs: Laboratory Results - last 24 hr 10/01/23 10/02/23 19:14 00:47 MCV 99.1 H MCH 34.4 H MCHC 34.7 RDW 11.9 Plt Count 284 MPV 9.5 Immature Gran % (Auto) 0.5 H Neut % (Auto) 70.1 Lymph % (Auto) 18.9 L Barbour % (Auto) 8.4 Eos % (Auto) 1.4 Baso % (Auto) 0.7 Lymph # (Auto) 2.1 Barbour # (Auto) 0.9 Eos # (Auto) 0.2 Baso # (Auto) 0.1 Abs Immat Gran (auto) 0.06 H Absolute Neuts (auto) 7.7 Absolute Nucleated RBC 0.000 Nucleated RBC % (auto) 0.0 ESR 2 PT 11.2 INR 0.9 APTT 29.0 Anion Gap 11 L Estim Creat Clear Calc 91.8 Estimated GFR > 60 Random Glucose 97 Lactic Acid 0.7 Calcium 9.7 Total Bilirubin 1.2 H AST 31 ALT 39 Alkaline Phosphatase 77 C-Reactive Protein < 0.04 Total Protein 6.6 Albumin 4.1 Assessment and Plan (1) Cellulitis of right lower extremity: Status: Acute Plan 63M PMH pvd s/p fempop and right sfa stent, copd, pafib, bph, presented with rle pain and erythema RLE cellulitis continue vanc and zosyn, pain control pvd asa, statin bph flomax copd stable dvt prophylaxis - Lovenox full code reason for continued hospitalization: iv abx, rle still painful, swollen and red. Quality Stroke Does the patient have a stroke diagnosis?: No VTE Prior VTE?: No VTE Risk Level:: Medical - moderate - high VTE Device Contraindication: Treatment Not Indicated VTE Drug Contraindication: N/A - Med Ordered
--- NOTE | 2023-10-02 09:26 | PHA.MEDREC ---
Addendum entered by Yazmin Tate RPh 10/02/23 10:03: reviewed Original Note: Pharmacy Consult ? Medication Reconciliation Pharmacy has completed the medication reconciliation. Confirmed medications with patient. Patient states he was taking the Oxycodone-Acetaminophen 5-325mg and finished that yesterday due to him having some leg pain.
--- NOTE | 2023-10-02 10:10 | P.CONGS_ITS ---
History of Present Illness Consult details Consult date: 10/02/23 Reason for consult: other (cellulitis) Narrative: Very pleasant 63-year-old gentleman well known to me with a prior history of right side distal femoral to tibial bypass. Since that time he has had recurrent bouts of cellulitis. Had significant swelling. He had a trial of p.o. antibiotics. It had increased in gotten worse last night and he presented to the emergency room. Since that time he has been on vanco and Zosyn. He reports his leg is doing somewhat better. Erythema has decreased somewhat. Of note bypass is with a venous conduit. Review of Systems 2 Review of Systems: Yes all other systems are reviewed and are negative Constitutional: Constitutional: Reports no additional constitutional complaints ENT: Reports Normal hearing present Cardiovascular: Cardiovascular: Denies chest pain, Denies chest pain at rest, Denies chest pain with activity and Denies pedal edema Respiratory: Respiratory: Denies cough Gastrointestinal: Gastrointestinal: Denies abdominal pain Musculoskeletal: Musculoskeletal: Denies abnormal gait, Denies muscle cramps and Denies radiating pain into limb Integumentary/Breasts: Skin/Breast: Denies skin ulcer and Denies wounds Neurologic: Reports Normal hearing present and Denies abnormal gait Psychiatric: Psychiatric: Reports no additional psychiatric complaints PMFSH Past Medical History Medical History Arthritis BPH (benign prostatic hyperplasia) Elevated cholesterol S/P angiogram of extremity (07/18/23) Atrial fibrillation History of Palmer's esophagus Splenic vein thrombosis History of femoral angiogram GERD (gastroesophageal reflux disease) COPD (chronic obstructive pulmonary disease) Peripheral arterial disease Surgical History Surgical History Hx of oral surgery Hx of tracheostomy History of esophagogastroduodenoscopy (EGD) H/O colonoscopy Social History Social History Household Members: None Housing: Apartment Are you a primary coronary care unit nurse to a significant other at home: No Do you presently have visiting nurse or other home services: No Patient Tobacco Use Status: Current everyday Tobacco user Tobacco use type: Cigarette Cigarette Packs Per Day: 1 Cigarettes Per Day: 20.0 Years Smoked: 41 e-Cigarette/Vaping Use: Former Use Patient Interested in Nicotine Replacement: Yes Use of substances other than those prescribed or required for medical reasons: No Substance Use Type: Marijuana Currently Displaying Signs/Symptoms of Drug Intoxication Withdrawal: No Have you been hit, kicked, punched, or otherwise hurt by someone within the past year? If so, by whom?: No Do you feel safe in your current relationship?: No Current Relationship Is there a partner from a previous relationship who is making you feel unsafe now?: No Are you made to feel afraid or neglected: No Advance Directives: No Advance Directives Information Provided: Yes Do you have a plan to hurt others: No Plan Recently lost weight without trying: No Eating poorly because of decreased appetite: No Nutrition Risks: No Nutritional Risk Poor oral hygiene: No service: No Meds Allergies Allergy/AdvReac Type Severity Reaction Status Date / Time No Known Allergies Allergy Verified 10/01/23 17:40 Active Medications: Current Medications Acetaminophen (Acetaminophen 325 Mg Tablet) 975 mg PO Q6H PRN PRN Reason: Pain, Mild (Pain Scale 1-3), fever or headache Enoxaparin Sodium (Enoxaparin Sodium 40 Mg/0.4 Ml Syringe) 40 mg SUBCUT Q24H [facility] Last Admin: 10/02/23 09:06 Dose: 40 mg Piperacillin Sod/Tazobactam (Sod 3.375 gm/ Sodium Chloride) 50 mls @ 100 mls/hr IV 0000,0600,1200,1800 [facility] Last Infusion: 10/02/23 06:49 Dose: Infused Vancomycin HCl 1,000 mg/ (Sodium Chloride) 270 mls @ 270 mls/hr IV Q12H [facility] Melatonin (Melatonin 3 Mg Tablet) 6 mg PO BEDTIME PRN PRN Reason: Insomnia Nicotine (Nicotine 21 Mg Patch.Td24) 21 mg TRANSDERMA DAILY [facility] Last Admin: 10/02/23 02:45 Dose: 21 mg Oxycodone HCl (Oxycodone Hcl Immed Release 5 Mg Tablet) 5 mg PO Q6H PRN PRN Reason: Pain, Severe (Pain Scale 7-10) Pharmacy Consult (Consult Rx Vancomycin Dosing) 1 each MISCELLANE DAILY PRN PRN Reason: Consult order Sodium Chloride (0.9 % Sodium Chloride Flush 3 Ml Syringe) 3 ml IVFLUSH QSHIFT [facility] Last Admin: 08/06/24 09:06 Dose: 3 ml Home Medications ?Medication ?Instructions ?Recorded ?Confirmed ?Last Taken ?Type aspirin 81 mg tablet,delayed 81 mg PO DAILY 01/12/20 10/02/23 10/01/23 History release (Luis Low Dose Aspirin) pantoprazole 40 mg tablet,delayed 80 mg PO DAILY@0630 01/12/20 10/02/23 10/01/23 History release tamsulosin 0.4 mg capsule 0.8 mg PO DAILY 01/12/20 10/02/23 10/01/23 History atorvastatin 10 mg tablet 10 mg PO DAILY 05/04/20 10/02/23 10/01/23 History ibuprofen 200 mg tablet 400 mg PO Q8H PRN Pain 08/03/23 10/02/23 08/06/23 History ascorbic acid (vitamin C) 500 mg 500 mg PO DAILY 08/14/23 10/02/23 10/01/23 History tablet (Vitamin C) vitamin E 268 mg (400 unit) capsule 268 mg PO DAILY 08/14/23 10/02/23 10/01/23 History acetaminophen 500 mg tablet 1,000 mg PO TID PRN Pain 10/02/23 10/02/23 Unknown History ehffnhkz-vn-[id number] 300 mcg-K 60 1 tab PO DAILY 10/02/23 10/02/23 10/01/23 History mcg-lycop 600 mcg-lutein 300 mcg tablet (Centrum Silver Men) mupirocin 2 % topical ointment 1 appl topical BID PRN After 10/02/23 10/02/23 Unknown History Bandage Change Physical Exam 2 Vital Signs: Vital Signs: Last Vital Signs Temp 98.3 F 10/02/23 07:32 Pulse 56 10/02/23 07:32 Resp 17 10/02/23 07:32 BP 131/72 10/02/23 07:32 Pulse Ox 97 10/02/23 07:32 O2 Del Method Room Air 10/02/23 07:32 BMI result Body Mass Index 26.4 Const: General: cooperative, healthy appearing and comfortable O rientation/consciousness: oriented to person, oriented to place and oriented to time HEENT: Head: Yes normal to inspection Neck: Neck: Yes normal visual inspection Carotids: no bruits Chest: Chest palpation & inspection: normal inspection of the chest Resp: Effort & Inspection: normal respiratory effort and able to speak in complete sentences Auscultation: clear to auscultation bilaterally, no crackles, no rales, no rhonchi and no wheezes Cardio: Other: Triphasic Doppler signal over bypass Rate: regular rate Rhythm: regular rhythm Heart sounds: S1 normal heart sound present and S2 normal heart sound present Bruits: no carotid bruits Peripheral pulses: Peripheral pulses 2+ throughout GI: Inspection: Yes normal to inspection Skin: Other: Right foot cellulitis tracking up to mid calf Wounds: no wounds Hair: normal Neuro: General: oriented to person, oriented to place and oriented to time Cranial nerves: Yes CN's II-XII intact bilaterally and Yes Normal hearing present Cognition (Neuro): normal cognition Motor exam (neuro): 5/5 motor strength present throughout Extrem: Other: venous exam: No significant superficial varicosities or spider telangiectasias, minimal edema General: No clubbing, No cyanosis and No edema Psych: Appearance: grossly normal Mental Status: mental status grossly normal Speech and movement: Normal speech and movement present Results Labs 10/01/23 19:14 10/01/23 19:14 Labs: Abnormal lab results 10/01/23 Range/Units 19:14 WBC 11.0 H (4.8-10.8) X10*3/uL RBC 4.54 L (4.60-5.80) X10*6/uL MCV 99.1 H (80.0-98.0) fL MCH 34.4 H (27.0-33.0) pg Immature Gran % (Auto) 0.5 H (0.0-0.4) % Lymph % (Auto) 18.9 L (20-40) % Abs Immat Gran (auto) 0.06 H (0.00-0.03) X10*3/uL Chloride 110 H (96-108) mmol/L Anion Gap 11 L (12-20) BUN 20 H (9-16) mg/dL Total Bilirubin 1.2 H (0.0-1.0) mg/dL Short CBC 10/01/23 Range/Units 19:14 WBC 11.0 H (4.8-10.8) X10*3/uL Hgb 15.6 (14.0-18.0) g/dl Hct 45.0 (42.0-52.0) % Plt Count 284 (160-400) X10*3/uL BMP 10/01/23 19:14 Sodium 141 Potassium 3.9 Chloride 110 H Carbon Dioxide 24 BUN 20 H Creatinine 0.88 Calcium 9.7 Liver Function 10/01/23 Range/Units 19:14 Total Bilirubin 1.2 H (0.0-1.0) mg/dL AST 31 (5-37) U/L ALT 39 (0-40) U/L Alkaline Phosphatase 77 (39-117) U/L Albumin 4.1 (3.5-5.0) g/dL All other labs normal. Assessment and Plan (1) Cellulitis of right lower extremity: Status: Acute Plan In short patient is doing really well with right fem distal bypass. It is patent. The concern here is the recurrent bouts of cellulitis. He will require IV antibiotic therapy. Would get Infectious Disease evaluation. As the patient has failed outpatient treatment with doxy and Keflex. We will continue to monitor him closely through his hospitalization. Thank you for allowing us to assist in his care. If there are any questions or concerns please do not hesitate to contact us. Procedures Date of Service Date of Service: 10/02/23
--- NOTE | 2023-10-02 12:17 | MHC.CM.PN ---
IMM delivered. Patient lives in an apartment alone. Has a private aide 3-5x/wk who assists w/ home making and hygiene. Adult children live nearby and assist PRN. Has a walker in the home, but ambulating independently at this time. PCP Quinton Callahan MD No HCP on file. CM provided education and offered assistance. Patient declined. DP: Home, ?new VNA, has used [facility] in the past and would use their services again. Son or ALLOCATION ANALYST to transport. CM will continue to follow.
[2023-10-02] MEDS: vancomycin HCL 1,000 MG in 0.9 % Sodium Chloride 250 ML 270 MG IV (13:48)
--- NOTE | 2023-10-02 14:22 | HO.WOUND ---
Wound Consult: Initial 63yr old? [place] [facility] [place] - See progress notes and H&P for detailed history.? Wound consult placed for right lower medial leg dehisced incision.? Patient agreeable to assessment and photo documentation.? Patient reports he is a patient of Dr. Knott and due to schedules was not able to see Dr Knott more recently - he went to walk in clinic and was referred to here. Patient states he is compliant with medication, leg elevation anf wears newly prescribed compression stockings from Dr. Knott. 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 Etiology: ??Dehisced incision wound Present on Admission Measurements: 1.8cm x 0.5cm x 0.6cm Wound Bed: adherent yellow slough Drainage / Odor: none noted Edges: ? well defined Lucinda wound: ? immediate erythema, red hot white patched foot, +DP pulse noted, Form swelling noted Pain: painful to touch Goals of Treatment: ? Moisture management with Durafiber AG Recommendations: 1. Turn and Reposition every 2 hours and as needed for patient comfort.? Use pillows or wedges to support off loading positions. 2. Off Load all bony prominences with use of pillows and heel boots if needed.? Apply Preventative foams where needed. ? 3. Monitor for incontinence and moisture control, use barrier creams when needed for prevention and treatment. 4. Provide adequate and supplemental nutrition.? 5. Order low air loss mattress. 6. When applicable maintain blood glucose levels per Providers order. 7. Right Lower Medial Leg - Elevate lower Leg on several pillows. Cleanse and irrigate with NS, Pat dry.? Apply barrier to periwound, lightly pack with Durafiber AG, be sure to leave a wick to easy removal.? Cover with Foam dressing.? Change every other day. Recommend Dr. Knott Vascular Surgeon for outpatient follow up.? His office is located at [address] [place] [address] [id number], [place] [address], call for an appointment at time of discharge [phone] Re-consult wound care Nurse for wound deterioration or wound changes.
--- NOTE | 2023-10-02 14:45 | MHC.RECOVRN ---
AUDIT-C Brief Intervention Pt had positive screen for unhealthy alcohol use on admission. Attempted to meet with pt to discuss alcohol use and offer resources, pt declined.
[2023-10-02] MEDS: Tamsulosin HCL 0.4 MG CAPSULE 0.8 MG PO (17:18)
[2023-10-03] MEDS: Piperacillin Sodium/Tazobactam 3.375 GM in 0.9 % Sodium Chloride 50 ML IV ×2 (00:06→06:01)
[2023-10-03] MEDS: 0.9 % Sodium Chloride Flush 3 ML SYRINGE IVFLUSH ×2 (00:06→07:54)
--- NOTE | 2023-10-03 00:14 | P.CNID_ITS ---
History of Present Illness Data of Consult Service Date: 10/02/23 Requesting physician: Luciano Mari Primary Care Provider: Quinton Callahan MD HPI Reason for consult: recurrent RLE cellulitis He presents with swelling and redness RLE. He has right Bakers cyst. He also had fem/pop Dory Dr Knott. He has no DVT. There is no purulence at operative site. He has received po Keflex and Doxycycline. Review of Systems 2 Review of Systems: Yes all other systems are reviewed and are negative Musculoskeletal: Comments: redness leg area right PMFSH Past Medical History Medical History Arthritis BPH (benign prostatic hyperplasia) Elevated cholesterol S/P angiogram of extremity (07/18/23) Atrial fibrillation History of Palmer's esophagus Splenic vein thrombosis History of femoral angiogram GERD (gastroesophageal reflux disease) COPD (chronic obstructive pulmonary disease) Peripheral arterial disease Family History Family history: reviewed and not pertinent Surgical History Surgical History Hx of oral surgery Hx of tracheostomy History of esophagogastroduodenoscopy (EGD) H/O colonoscopy Social History Social History Household Members: None Housing: Apartment Are you a primary nanny caregiver to a significant other at home: No Do you presently have visiting nurse or other home services: No Patient Tobacco Use Status: Current everyday Tobacco user Tobacco use type: Cigarette Cigarette Packs Per Day: 1 Cigarettes Per Day: 20.0 Years Smoked: 41 e-Cigarette/Vaping Use: Former Use Patient Interested in Nicotine Replacement: Yes Use of substances other than those prescribed or required for medical reasons: No Substance Use Type: Marijuana Currently Displaying Signs/Symptoms of Drug Intoxication Withdrawal: No Have you been hit, kicked, punched, or otherwise hurt by someone within the past year? If so, by whom?: No Do you feel safe in your current relationship?: No Current Relationship Is there a partner from a previous relationship who is making you feel unsafe now?: No Are you made to feel afraid or neglected: No Advance Directives: No Advance Directives Information Provided: Yes Do you have a plan to hurt others: No Plan Recently lost weight without trying: No Eating poorly because of decreased appetite: No Nutrition Risks: No Nutritional Risk Poor oral hygiene: No service: No Meds Allergies Allergy/AdvReac Type Severity Reaction Status Date / Time No Known Allergies Allergy Verified 10/01/23 17:40 Active Medications: Current Medications Acetaminophen (Acetaminophen 325 Mg Tablet) 975 mg PO Q6H PRN PRN Reason: Pain, Mild (Pain Scale 1-3), fever or headache Ascorbic Acid (Ascorbic Acid 500 Mg Tablet) 500 mg PO DAILY [facility] Aspirin (Aspirin Enteric Coated 81 Mg Tablet.) 81 mg PO DAILY [facility] Atorvastatin Calcium (Atorvastatin Calcium 10 Mg Tablet) 10 mg PO DAILY [facility] Enoxaparin Sodium (Enoxaparin Sodium 40 Mg/0.4 Ml Syringe) 40 mg SUBCUT Q24H [facility] Last Admin: 10/02/23 09:06 Dose: 40 mg Fluticasone/Vilanterol (Fluticasone/Vilanterol 200/25 Blst.W.Dev) 1 puff INHALE RDAILY [facility] Piperacillin Sod/Tazobactam (Sod 3.375 gm/ Sodium Chloride) 50 mls @ 100 mls/hr IV 0000,0600,1200,1800 [facility] Last Admin: 10/03/23 00:06 Dose: 100 mls/hr Vancomycin HCl 1,000 mg/ (Sodium Chloride) 270 mls @ 270 mls/hr IV Q12H [facility] Last Infusion: 10/02/23 14:52 Dose: Infused Melatonin (Melatonin 3 Mg Tablet) 6 mg PO BEDTIME PRN PRN Reason: Insomnia Nicotine (Nicotine 21 Mg Patch.Td24) 21 mg TRANSDERMA DAILY [facility] Last Admin: 10/02/23 02:45 Dose: 21 mg Omeprazole (Omeprazole 20 Mg Capsule.) 20 mg PO DAILY@0630 [facility] Oxycodone HCl (Oxycodone Hcl Immed Release 5 Mg Tablet) 5 mg PO Q6H PRN PRN Reason: Pain, Severe (Pain Scale 7-10) Pharmacy Consult (Consult Rx Vancomycin Dosing) 1 each MISCELLANE DAILY PRN PRN Reason: Consult order Sodium Chloride (0.9 % Sodium Chloride Flush 3 Ml Syringe) 3 ml IVFLUSH QSHIFT [facility] Last Admin: 10/03/23 00:06 Dose: 3 ml Tamsulosin HCl (Tamsulosin Hcl 0.4 Mg Capsule) 0.8 mg PO DAILY [facility] Last Admin: 10/02/23 17:18 Dose: 0.8 mg Home Medications ?Medication ?Instructions ?Recorded ?Confirmed ?Last Taken ?Type aspirin 81 mg tablet,delayed 81 mg PO DAILY 01/12/20 10/02/23 10/01/23 History release (Luis Low Dose Aspirin) pantoprazole 40 mg tablet,delayed 80 mg PO DAILY@0630 01/12/20 10/02/23 10/01/23 History release tamsulosin 0.4 mg capsule 0.8 mg PO DAILY 01/12/20 10/02/23 10/01/23 History atorvastatin 10 mg tablet 10 mg PO DAILY 05/04/20 10/02/23 10/01/23 History ibuprofen 200 mg tablet 400 mg PO Q8H PRN Pain 08/03/23 10/02/23 08/06/23 History ascorbic acid (vitamin C) 500 mg 500 mg PO DAILY 08/14/23 10/02/23 10/01/23 History tablet (Vitamin C) vitamin E 268 mg (400 unit) capsule 268 mg PO DAILY 08/14/23 10/02/23 10/01/23 History acetaminophen 500 mg tablet 1,000 mg PO TID PRN Pain 10/02/23 10/02/23 Unknown History [id number]-rv-uuegd 300 mcg-K 60 1 tab PO DAILY 10/02/23 10/02/23 10/01/23 History mcg-lycop 600 mcg-lutein 300 mcg tablet (Centrum Silver Men) mupirocin 2 % topical ointment 1 appl topical BID PRN After 10/02/23 10/02/23 Unknown History Bandage Change Physical Exam 2 Vital Signs: Vital Signs: Last Vital Signs Temp 97 F 10/02/23 23:52 Pulse 73 10/02/23 23:52 Resp 18 10/02/23 23:52 BP 157/69 H 10/02/23 23:52 Pulse Ox 97 10/02/23 23:52 O2 Del Method Room Air 10/02/23 23:52 BMI result Body Mass Index 26.4 Const: General: cooperative HEENT: Head: Yes normal to inspection Face and sinus: Yes normal facial exam Mouth: Normal oral and palatal mucosa present Teeth and gingiva: d entition normal Eyes: General: appearance normal, both eyes and all related structures P upils: Equal, round and reactive pupils present Resp: Effort & Inspection: normal respiratory effort Cardio: Rate: regular rate Rhythm: regular rhythm GI: Palpation (GI): Soft to palpation and nontender : General: Yes no CVA tenderness Back/Spine/Pelvis: Back: no CVA tenderness Skin: General skin exam: no rashes or lesions noted Neuro: General: moves all extremities Cranial nerves: Yes Equal, round and reactive pupils present Extrem: Other: plus 3 swelling and mild erythema ,no drainage or tinea pedis pulses intact Psych: Appearance: grossly normal Results Labs 10/01/23 19:14 10/01/23 19:14 Assessment and Plan (1) Bakers cyst: Qualifiers: Laterality: right Qualified Code(s): M71.21 - Synovial cyst of popliteal space [Santoro], right knee Status: Acute (2) Complex regional pain syndrome i of right lower limb: Status: Acute (3) Peripheral arterial disease: Status: Acute Plan It appears with normal WBC and no fever and no response to antibiotics that infection isnt the main issue here. Most likely combination of Bakers cyst,PAD ,venous stasis and neurologic reaction possible reflex sympathetic dystrophy cause of physical findings. If leg was infected likely find redness with drainage as well. Would give po Doxycycline which is also antiinflammatory ,maybe gabapentin,address Santoro cyst and stop IV antibiotics within day or so.
[2023-10-03] MEDS: Albuterol/Iprat 2.5/0.5MG 3 ML AMPUL.NEB INHALE (01:09)
[2023-10-03 01:12] VITALS: PULSE 73; RESP 18; O2SAT 97
[2023-10-03] MEDS: vancomycin HCL 1,000 MG in 0.9 % Sodium Chloride 250 ML 270 MG IV (02:04)
[2023-10-03] MEDS: oxyCODONE HCl Immed Release 5 MG TABLET PO (02:09)
[2023-10-03 02:42] VITALS: BP 131/66; PULSE 69; RESP 18; TEMP 36.1; O2SAT 97
[2023-10-03] MEDS: Omeprazole 20 MG CAPSULE.DR PO (06:01)
[2023-10-03 07:04] VITALS: BP 129/73; PULSE 62; RESP 17; TEMP 36.6; O2SAT 98
[2023-10-03 07:07] LABS: Hematocrit 40.2 % (42.0-52.0); Hemoglobin 13.6 g/dl (14.0-18.0); Mean Corpuscular HGB Conc 33.8 g/dl (31.0-36.0); Mean Corpuscular Hemoglobin 33.9 pg (27.0-33.0); Mean Corpuscular Volume 100.2 fL (80.0-98.0); Platelet Count 215 X10*3/uL (160-400); Red Blood Count 4.01 X10*6/uL (4.60-5.80); Red Cell Distribution Width 11.8 % (11.0-16.0); White Blood Count 6.5 X10*3/uL (4.8-10.8)
[2023-10-03 07:24] LABS: Alanine Aminotransferase 26 U/L (0-40); Albumin Level 3.3 g/dL (3.5-5.0); Alkaline Phosphatase 55 U/L (39-117); Anion Gap 10 (12-20); Aspartate Amino Transferase 21 U/L (5-37); Bilirubin Total 0.4 mg/dL (0.0-1.0); Blood Urea Nitrogen 15 mg/dL (9-16); Carbon Dioxide 26 mmol/L (22-29); Chloride 108 mmol/L (96-108); Estimated Glomerular Filt Rate > 60; Glucose Fasting 100 mg/dL (60-99); Glucose Random 99 mg/dL (60-115); Sodium 140 mmol/L (135-145); Total Protein 5.2 g/dL (6.5-8.0)
[2023-10-03] MEDS: Aspirin Enteric Coated 81 MG TABLET.DR PO (07:45)
[2023-10-03] MEDS: Atorvastatin Calcium 10 MG TABLET PO (07:45)
[2023-10-03] MEDS: Nicotine 21 MG PATCH.TD24 TRANSDERMA (07:47)
[2023-10-03] MEDS: Tamsulosin HCL 0.4 MG CAPSULE 0.8 MG PO (07:47)
[2023-10-03] MEDS: Ascorbic Acid 500 MG TABLET PO (07:47)
[2023-10-03] MEDS: Enoxaparin Sodium 40 MG/0.4 ML SYRINGE SUBCUT (07:48)
[2023-10-03] MEDS: Doxycycline Monohydrate 100 MG CAPSULE PO (10:47)
[2023-10-03] MEDS: Gabapentin 100 MG CAPSULE PO (10:47)
--- NOTE | 2023-10-03 12:11 | PM.DS ---
DS: Providers Provider Date of Service: 10/03/23 Date of admission: 10/02/23 02:16 Primary care physician: Quinton Callahan MD Consults: 10/02/23 02:19 Consult to Vascular Surgery Routine Consulting Provider: [facility] [place] [facility] Reason for consultation: Right leg cellulitis, s/p right fem-pop bypass Has provider been notified: Yes 10/02/23 05:02 Addiction Medicine Routine Consulting Provider: Addiction Covering Reason for consultation: meets positive ETOH screening 10/02/23 05:11 Consult to Wound Care Routine Reason for consultation: cellulitis, swelling, small open area to right lower leg from bypass . 10/02/23 10:14 Consult to Infectious Diseases Routine Consulting Provider: [facility] [place] [facility] Reason for consultation: Recurrent right lower extremity cellulitis Has provider been notified: No DS: Diagnosis Discharge Diagnosis (1) Bakers cyst: Status: Acute (2) Complex regional pain syndrome i of right lower limb: Status: Acute (3) Peripheral arterial disease: Status: Acute (4) Cellulitis of right lower extremity: Status: Acute (5) Nicotine dependence, cigarettes, uncomplicated: Status: Acute DS: Summary Hospital Course Hospital Course: Admission note HPI Zan Encinas is a 63 years old man with past medical history significant for PAD s/p fem=pop bypass with reverse saphenous vein graft (July 2023) s/p right SFA stent right popliteal plasty, COPD -no home O2, and atrial fibrillation presents to the emergency department complaining of worsening right lower leg swelling, pain (8/10) and redness over the last 2 days. He has been taking a course of cephalexin and doxycycline. He denies fever or chills. He did not report any headache, palpitations or dizziness. Denied any acute cardiopulmonary or gastrointestinal symptoms. He has an ongoing tobacco smoker. Drinks alcohol 20 nips weekly. In the ED, he was found to have normal vital signs. Blood workup showed leukocytosis of 11.0. Hemoglobin and platelets are normal. INR is normal. There is no lactic acidosis. There are no significant electrolyte imbalances. Creatinine is normal. LFTs are normal except for minimal elevation of total bilirubin, 1.2. CRP < 0.04. Left lower extremity venous US shows acid collections seen in the medial calf possibly representing a dissecting Santoro's cyst. Left tib-fib x-ray showed diffuse soft tissue swelling but no acute fracture or dislocations. ED tx: Zosyn 4.5 g IV, vancomycin 1250 mg IV. Hospital course The patient was admitted for evaluation of RLE pain and swelling with erythema. No reported fever, chills, drainage, warmth or elevated WBCs. Treated primarly as cellulitis with broad spectrum antibiotics and pain pills. Evaluated by vascular surgery and infectious disease specialist who questioned infection as his foot tends to improved in pain, swelling and less erythema upon elevation and worsens with walking and keeping the foot down likely multifactorial with PAD, venous stasis, santoro cysts and possible cellulitis. suggested PO antibiotics and local measures upon discharge by keeping leg elevated and follow with dr Knott as outpatient. Vascular also suggested no need to intervene for the reprted Santoro cyst at this point and will continue to monitor as outpatient. Discharge plan Elevate your leg to decrease swelling and erythema Continue Doxycycline for 10 more days To follow with dr Knott in 2 weeks Gabapentin for pain management; follow with PCP as scheduled for dose adjustment Time Attestation Discharge Coordination Time (in mins): 42 Quality: Safe Use of Opioids Does Pt have an Active Cancer Diagnosis on the Problem List?: No Quality: Stroke Does the patient have a stroke diagnosis?: No Physical Exam Vital Signs: Vital Signs: Last Vital Signs Temp 98 F 10/03/23 07:04 Pulse 62 10/03/23 07:04 Resp 17 10/03/23 07:04 BP 129/73 10/03/23 07:04 Pulse Ox 98 10/03/23 07:04 O2 Del Method Room Air 10/03/23 07:04 BMI result Body Mass Index 26.4 Const: Other: Constitutional : Awake, interactive, not in distress Neck : Normal inspection, Supple Cardiovascular : RRR, no JVP, no lower extremity edema Respiratory : good bilateral air entry, no crackles, wheezes or rhonchi Gastrointestinal: soft, lax, Normal bowel sounds, Non tender Skin : Warm, Dry, RLE erythema improving, swelling resolving, non-tender, no drainage. Neurological : Alert & oriented x3, No focal deficit DS: Data Data Completed and Pending Completed studies during hospitalization [Text1]: Procedures Bypass Right Femoral Artery to Popliteal Artery with Autologous Venous Tissue, Open Approach (08/13/23) Excision of Right Saphenous Vein, Open Approach (08/13/23) Labs on day of discharge: Laboratory Results - last 24 hr 10/03/23 05:43 WBC 6.5 RBC 4.01 L Hgb 13.6 L Hct 40.2 L MCV 100.2 H MCH 33.9 H MCHC 33.8 RDW 11.8 Plt Count 215 MPV 10.0 Absolute Nucleated RBC 0.000 Nucleated RBC % (auto) 0.0 Sodium 140 Potassium 4.0 Chloride 108 Carbon Dioxide 26 Anion Gap 10 L BUN 15 Creatinine 0.85 Estim Creat Clear Calc 95.0 Estimated GFR > 60 Random Glucose 99 Fasting Glucose 100 H Calcium 9.0 D Total Bilirubin 0.4 AST 21 ALT 26 Alkaline Phosphatase 55 Total Protein 5.2 L Albumin 3.3 L Preliminary micro results at discharge 10/02/23 00:58 Blood Culture - Preliminary Blood - Venous No growth after 24 hours. 10/02/23 00:47 Blood Culture - Preliminary Blood - Venous No growth after 24 hours. Imaging Chest x-ray: Radiologist's impression: ITS Impressions Foot X-Ray 10/01/23 17:59 IMPRESSION: Diffuse soft tissue swelling but no acute fracture or dislocation. No bony destructive lesions. Vascular surgical clips are seen. Tibia/Fibula X-Ray 10/01/23 17:59 IMPRESSION: Diffuse soft tissue swelling but no acute fracture or dislocation. No bony destructive lesions. Vascular surgical clips are seen. Venous Duplex 10/01/23 18:44 IMPRESSION: No DVT demonstrated in the right lower extremity. 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 This was noted on the prior study as well and appears similar to that size. Discharge Plan Discharge Anticipated Discharge Date/Time: 10/03/23 12:00 Patient Disposition: Home, Self-Care Discharge Diagnosis: Cellulitis Venous stasis Referrals: Quinton Callahan MD [Primary Care Provider] - 1 Week Discharge Medications: New doxycycline monohydrate 100 mg Capsule 100 mg PO Q12H Qty: 20 0RF gabapentin 100 mg Capsule 100 mg PO BID Qty: 60 1RF Continued aspirin [Luis Low Dose Aspirin] 81 mg Tablet,Delayed Release (Dr/Ec) 81 mg PO DAILY tamsulosin 0.4 mg Capsule 0.8 mg PO DAILY pantoprazole 40 mg Tablet,Delayed Release (Dr/Ec) 80 mg PO DAILY@0630 acetaminophen 500 mg Tablet 1,000 mg PO TID PRN (Reason: Pain) Centrum Silver Men [phone] mcg Tablet 1 tab PO DAILY mupirocin 2 % ointment 1 appl topical BID PRN (Reason: After Bandage Change) nicotine 21 mg/24 hr patch 24 hour 1 patch transdermal DAILY Qty: 30 0RF ibuprofen 200 mg Tablet 400 mg PO Q8H PRN (Reason: Pain) ascorbic acid (vitamin C) [Vitamin C] 500 mg Tablet 500 mg PO DAILY vitamin E 268 mg (400 unit) Capsule 268 mg PO DAILY atorvastatin 10 mg tablet 10 mg PO DAILY albuterol sulfate 90 mcg/actuation HFA aerosol inhaler 2 puff inhalation Q4-6H PRN (Reason: shortness of breath or wheezing) Qty: 1 6RF fluticasone furoate-vilanterol [Breo Ellipta] 200-25 mcg/dose blister with device 1 inh inhalation DAILY Qty: 60 6RF Discharge Orders: Discharge Order (Routine); Ordered 10/03/23 Ordered By: Lorena Shrestha Diet: Advance to usual diet Activity on Discharge: As tolerated Stand Alone Forms: Patient Portal Discharge page Print Language: Thai Care Plan Goals: Elevate your leg to decrease swelling and erythema Continue Doxycycline for 10 more days To follow with dr Knott in 2 weeks Gabapentin for pain management; follow with PCP as scheduled for dose adjustment Health Concerns: Read below Plan of Treatment: Read below Assessment: Read below
[2023-10-03 12:33] LABS: Vancomycin Random 9.5 mcg/mL (15-20)
--- NOTE | 2023-10-03 12:33 | MHC.CM.PN ---
IMM 10/02/23 Patient is discharged to home self care. He has arranged for transportation home.
--- NOTE | 2023-10-03 12:49 | HO.VASCPN ---
Subjective Subjective Date of Service: 10/03/23 Patient reports: no new complaints and feels better Interval history: Patient seen and examined. No significant events overnight. Appears to be doing relatively well. Overall swelling and erythema have improved since he was hospitalized. Was seen by infectious disease. Physical Exam Vital Signs: Vital Signs: Last Vital Signs Temp 98 F 10/03/23 07:04 Pulse 62 10/03/23 07:04 Resp 17 10/03/23 07:04 BP 129/73 10/03/23 07:04 Pulse Ox 98 10/03/23 07:04 O2 Del Method Room Air 10/03/23 07:04 BMI result Body Mass Index 26.4 Const: General: cooperative, healthy appearing and comfortable Orientation/consciousness: oriented to person, oriented to place and oriented to time HEENT: Head: Yes normal to inspection Neck: Neck: Yes normal visual inspection Carotids: no bruits Chest: Chest palpation & inspection: normal inspection of the chest Resp: Effort & Inspection: normal respiratory effort and able to speak in complete sentences Auscultation: clear to auscultation bilaterally, no crackles, no rales, no rhonchi and no wheezes Cardio: Rate: regular rate Rhythm: regular rhythm Heart sounds: S1 normal heart sound present and S2 normal heart sound present Bruits: no carotid bruits Peripheral pulses: Peripheral pulses 2+ throughout GI: Inspection: Yes normal to inspection Skin: Wounds: no wounds Hair: normal Neuro: General: oriented to person, oriented to place and oriented to time Cranial nerves: Yes CN's II-XII intact bilaterally and Yes Normal hearing present Cognition (Neuro): normal cognition Motor exam (neuro): 5/5 motor strength present throughout Extrem: Other: venous exam: No significant superficial varicosities or spider telangiectasias, minimal edema General: No clubbing, No cyanosis and No edema Psych: Appearance: grossly normal Mental Status: mental status grossly normal Speech and movement: Normal speech and movement present Progress Note: A&P Assessment and plan (1) Cellulitis of right lower extremity: Status: Acute Assessment and Plan: Overall I do think the cellulitis and edema have significantly improved. Unclear if this is more of a dependent rubor versus cellulitis but in general he appears to be doing relatively well. I would follow Infectious Disease recommendations. He is stable from my perspective for discharge. He can be started on 10 days of p.o. doxycycline. Upon discharge he can see me as an outpatient in approximately 2 weeks time. Thank you for allowing us to assist in his care. If there are any questions or concerns please do not hesitate to contact us. Time Spent With Patient Time: Total time managing care of this patient today ____ minutes. Procedures Date of Service Date of Service: 10/03/23 Quality Stroke Does the patient have a stroke diagnosis?: No VTE Prior VTE?: No VTE Risk Level:: Medical - moderate - high VTE Device Contraindication: Treatment Not Indicated VTE Drug Contraindication: N/A - Med Ordered
== END 2023-10-03 13:21 | disposition home or self-care (01) | DRG 603 ==
LOC: HO.ED 10-02 00:49 → HO.EDOVER 10-02 02:21 → HO.S3 10-02 03:40
PROVIDERS: Internal Medicine; Physician Assistant; Admitting Provider Internal Medicine; Emergency Provider Emergency Medicine Emergency Medical Services; PCP Internal Medicine Medical Oncology; Visit Provider Student in an Organized Health Care Education/Training Program
DX: L03.115 Cellulitis of right lower limb (principal); J44.9 Chronic obstructive pulmonary disease, unspecified; F17.210 Nicotine dependence, cigarettes, uncomplicated; I87.8 Other specified disorders of veins; M71.21 Synovial cyst of popliteal space [Baker], right knee; E78.5 Hyperlipidemia, unspecified; K21.9 Gastro-esophageal reflux disease without esophagitis; I70.201 Unspecified atherosclerosis of native arteries of extremities, right leg; N40.0 Benign prostatic hyperplasia without lower urinary tract symptoms; Z71.6 Tobacco abuse counseling; Z79.51 Long term (current) use of inhaled steroids; Z79.82 Long term (current) use of aspirin; Z79.899 Other long term (current) drug therapy
CPT/HCPCS: 36415; 73590; 73620; 80048; 80053; 80202; 83605; 85025; 85027; 85610; 85652; 85730; 86140; 87040; 93971; 94640; 99285; J1650; J1885; J2543; J3370; J3371

== ENCOUNTER → 2023-10-02 02:16 | Outpatient (BNV) | payer MEDICARE, SELFPAY | PROVIDERS: Admitting Provider Internal Medicine; Emergency Provider Emergency Medicine Emergency Medical Services; PCP Internal Medicine Medical Oncology; Visit Provider Internal Medicine | DX: L03.115 Cellulitis of right lower limb (principal); F17.210 Nicotine dependence, cigarettes, uncomplicated; M71.21 Synovial cyst of popliteal space [Baker], right knee | CPT/HCPCS: 99222; 99239; 99499 ==

== ENCOUNTER → 2023-10-02 02:16 | Outpatient (BNV) | payer MEDICARE, SELFPAY | PROVIDERS: Admitting Provider Internal Medicine; Emergency Provider Emergency Medicine Emergency Medical Services; PCP Internal Medicine Medical Oncology; Visit Provider Surgery Vascular Surgery | DX: L03.115 Cellulitis of right lower limb (principal) | CPT/HCPCS: 99024 ==

== ENCOUNTER → 2023-10-02 02:16 | Outpatient (BNV) | payer MEDICARE, SELFPAY | PROVIDERS: Admitting Provider Internal Medicine; Emergency Provider Emergency Medicine Emergency Medical Services; PCP Internal Medicine Medical Oncology; Visit Provider Internal Medicine | DX: M71.21 Synovial cyst of popliteal space [Baker], right knee (principal); G90.521 Complex regional pain syndrome I of right lower limb; I73.9 Peripheral vascular disease, unspecified | CPT/HCPCS: 99222 ==

== ENCOUNTER 2023-10-18 09:44 | Outpatient (AMB) | payer MEDICARE, SELFPAY ==
--- NOTE | 2023-10-18 09:48 | A.OFFVIS_ITS ---
Intake Visit Reasons: Hospital follow up cellulitis Intake Note: Patient presents for follow up cellulitis. He feels it is looking better Was given gabapentin by his primary care and feels it is working. Allergies No Known Allergies Allergy (Verified 10/18/23 09:50) [facility] Hospital follow up cellulitis: Details: Pleasant 63-year-old gentleman presents for follow-up status post right SFA to below-knee popliteal bypass with reverse saphenous vein. He has significant swelling of that leg. It appears to have improved over the last 2 weeks. Now presents for routine follow-up. [facility] Medical History (Updated 10/19/23 @ 13:03 by Bimal Knott MD) Peripheral arterial disease Bakers cyst Nicotine dependence, cigarettes, uncomplicated Complex regional pain syndrome i of right lower limb Arthritis BPH (benign prostatic hyperplasia) Elevated cholesterol S/P angiogram of extremity (07/18/23) Atrial fibrillation History of Palmer's esophagus Splenic vein thrombosis History of femoral angiogram GERD (gastroesophageal reflux disease) COPD (chronic obstructive pulmonary disease) Surgical History Hx of oral surgery Hx of tracheostomy History of esophagogastroduodenoscopy (EGD) H/O colonoscopy Social History Household Members: None Housing: Apartment Are you a primary home care provider to a significant other at home: No Do you presently have visiting nurse or other home services: No Patient Tobacco Use Status: Current everyday Tobacco user Tobacco use type: Cigarette Cigarette Packs Per Day: 1 Cigarettes Per Day: 20.0 Years Smoked: 41 e-Cigarette/Vaping Use: Former Use Substance Use Type: Marijuana service: No Review of Systems Const All systems reviewed & are unremarkable except as noted in HPI and below Reports no additional complaints ENT Reports Normal hearing present Card Denies chest pain, Denies chest pain at rest, Denies chest pain with activity and Denies pedal edema Resp Denies cough GI Denies abdominal pain Musc Denies abnormal gait, Denies muscle cramps and Denies radiating pain into limb Skin/Breast Denies skin ulcer and Denies wounds Neuro Reports Normal hearing present and Denies abnormal gait Psych Reports no additional complaints Physical Exam Const General: cooperative, healthy appearing and comfortable Orientation/consciousness: oriented to person, oriented to place and oriented to time HEENT Head: Yes normal to inspection Neck Neck: Yes normal visual inspection Carotids: no bruits Chest Chest palpation & inspection: normal inspection of the chest Resp Effort & Inspection: normal respiratory effort and able to speak in complete sentences Auscultation: clear to auscultation bilaterally, no crackles, no rales, no rhonchi and no wheezes Cardio Other: Triphasic signal over graft Rate: regular rate Rhythm: regular rhythm Heart sounds: S1 normal heart sound present and S2 normal heart sound present Bruits: no carotid bruits Peripheral pulses: Peripheral pulses 2+ throughout GI Inspection: Yes normal to inspection Skin Wounds: no wounds Hair: normal Neuro General: oriented to person, oriented to place and oriented to time Cranial nerves: Yes CN's II-XII intact bilaterally and Yes Normal hearing present Cognition (Neuro): normal cognition Motor exam (neuro): 5/5 motor strength present throughout Extrem Other: venous exam: +2 edema of the right lower extremity General: No clubbing, No cyanosis and Yes edema Psych Appearance: grossly normal Mental Status: mental status grossly normal Speech and movement: Normal speech and movement present Assessment & Plan Assessment & Plan (1) Peripheral arterial disease: Comment: 06/18/2019 right SFA stent right popliteal plasty 07/18/2023 - diagnostic angiogram 08/13/2023 - right distal SFA to below-knee popliteal bypass with reverse saphenous vein graft Code(s): I73.9 - Peripheral vascular disease, unspecified Category: Medical Plan: In short the leg does appear to be doing better. I do believe that this is more of a reactive hyperemia than infection. His edema continues to improve and I do think it will continue to improve over time. I did discuss routine conservative measures including compression elevation and exercise. Will follow up with us in 2 weeks to ensure that it is progressing in the right direction. Thank you for allowing us to assist in his care. Please note a longitudinal relationship has been created with the patient and we have been following and surveillance this chronic condition. Coding Level of Care Code Est Pt Level 4 (51624) Complex EM visit Add On G2211 Diagnoses Peripheral arterial disease I73.9
== END 2023-10-18 10:07 | disposition home or self-care (01) ==
PROVIDERS: PCP Internal Medicine Medical Oncology; Visit Provider Surgery Vascular Surgery
DX: I73.9 Peripheral vascular disease, unspecified (principal)
CPT/HCPCS: 99024

== ENCOUNTER → 2023-10-18 09:44 | Outpatient (BNVA) | payer MEDICARE, SELFPAY | PROVIDERS: PCP Internal Medicine Medical Oncology; Visit Provider Surgery Vascular Surgery | DX: I73.9 Peripheral vascular disease, unspecified (principal) | CPT/HCPCS: 99212 ==

== ENCOUNTER 2023-11-01 11:00 | Outpatient (AMB) | payer MEDICARE, SELFPAY ==
--- NOTE | 2023-11-01 11:02 | A.OFFVIS_ITS ---
Intake Visit Reasons: 2 wk fu leg check Intake Note: 2 week follow up Right leg check redness and slow to heal incision. Pt states that he is working less on his feet and elevating when possible, walking daily. States when he elevates his leg turns white/joya and when he puts his leg down it turns red. Wearing compression daily. States when he is walking it does worsen. Pt states right foot is more painful than before surgery. Accompanied by: Self / Same As Patient Allergies No Known Allergies Allergy (Verified 11/01/23 11:06) HPI HPI 2 wk fu leg check: Details: Very pleasant 63-year-old gentleman presents for follow-up regarding right fem distal bypass. He has this persistent swollen and red leg. It has been a source of issues for him for the past 2 nearly 3 months. It is become quite concerning. Now presents for routine follow-up FORMERLY [facility] Medical History Peripheral arterial disease Bakers cyst Nicotine dependence, cigarettes, uncomplicated Complex regional pain syndrome i of right lower limb Arthritis BPH (benign prostatic hyperplasia) Elevated cholesterol S/P angiogram of extremity (07/18/23) Atrial fibrillation History of Palmer's esophagus Splenic vein thrombosis History of femoral angiogram GERD (gastroesophageal reflux disease) COPD (chronic obstructive pulmonary disease) Surgical History Hx of oral surgery Hx of tracheostomy History of esophagogastroduodenoscopy (EGD) H/O colonoscopy Social History Household Members: None Housing: Apartment Are you a primary resident care provider to a significant other at home: No Do you presently have visiting nurse or other home services: No Patient Tobacco Use Status: Current everyday Tobacco user Tobacco use type: Cigarette Cigarette Packs Per Day: 1 Cigarettes Per Day: 20.0 Years Smoked: 41 e-Cigarette/Vaping Use: Former Use Substance Use Type: Marijuana service: No Review of Systems Const All systems reviewed & are unremarkable except as noted in HPI and below Reports no additional complaints ENT Reports Normal hearing present Card Denies chest pain, Denies chest pain at rest, Denies chest pain with activity and Denies pedal edema Resp Denies cough GI Denies abdominal pain Musc Denies abnormal gait, Denies muscle cramps and Denies radiating pain into limb Skin/Breast Denies skin ulcer and Denies wounds Neuro Reports Normal hearing present and Denies abnormal gait Psych Reports no additional complaints Physical Exam Const General: cooperative, healthy appearing and comfortable Orientation/consciousness: oriented to person, oriented to place and oriented to time HEENT Head: Yes normal to inspection Neck Neck: Yes normal visual inspection Carotids: no bruits Chest Chest palpation & inspection: normal inspection of the chest Resp Effort & Inspection: normal respiratory effort and able to speak in complete sentences Auscultation: clear to auscultation bilaterally, no crackles, no rales, no rhonchi and no wheezes Cardio Other: Triphasic Doppler in popliteal; a T signals Rate: regular rate Rhythm: regular rhythm Heart sounds: S1 normal heart sound present and S2 normal heart sound present Bruits: no carotid bruits Peripheral pulses: Peripheral pulses 2+ throughout GI Inspection: Yes normal to inspection Skin Other: Right leg erythema Wounds: no wounds Hair: normal Neuro General: oriented to person, oriented to place and oriented to time Cranial nerves: Yes CN's II-XII intact bilaterally and Yes Normal hearing present Cognition (Neuro): normal cognition Motor exam (neuro): 5/5 motor strength present throughout Extrem Other: venous exam: No significant superficial varicosities or spider telangiectasias, minimal edema General: No clubbing, No cyanosis and No edema Psych Appearance: grossly normal Mental Status: mental status grossly normal Speech and movement: Normal speech and movement present Assessment & Plan Assessment & Plan (1) Peripheral arterial disease: Comment: 06/18/2019 right SFA stent right popliteal plasty 07/18/2023 - diagnostic angiogram 08/13/2023 - right distal SFA to below-knee popliteal bypass with reverse saphenous vein graft Code(s): I73.9 - Peripheral vascular disease, unspecified Category: Medical Plan: In short patient has persistently swollen lower extremity. It has become of concern for me. Will plan for right lower extremity arterial ultrasound to as sess the status of his flow. In addition I will start him back on antibiotics as his foot is quite erythematous. We did discuss conservative measures including leg elevation and ambulation. He will follow up with us after testing. Orders: Orders US arterial duplex LE RT Today I73.9 - Peripheral vascular disease, unspecified Coding Level of Care Code Est Pt Level 4 (14166) Diagnoses Peripheral arterial disease I73.9
== END 2023-11-01 11:38 | disposition home or self-care (01) ==
PROVIDERS: PCP Internal Medicine Medical Oncology; Visit Provider Surgery Vascular Surgery
DX: I73.9 Peripheral vascular disease, unspecified (principal)
CPT/HCPCS: 99024

== ENCOUNTER 2023-11-01 13:02 | Outpatient (REF) | payer MEDICARE, SELFPAY ==
--- NOTE | ~2023-11-01 | US_ITS ---
EXAMINATION: NONINVASIVE ASSESSMENT OF THE ARTERIES OF THE RIGHT LOWER EXTREMITY INTERPRETING VASCULAR & INTERVENTIONAL RADIOLOGIST: Frankie Jimenez MD CLINICAL INFORMATION: Peripheral vascular disease. Evaluate right distal femoral to below the knee bypass graft. TECHNIQUE: Right lower extremity duplex ultrasound was performed with velocity measurements and waveform analysis in the common femoral arteries, profunda femoris arteries, proximal mid and distal superficial femoral arteries, popliteal arteries and tibial vessels. Patient's bypass graft was also examined. This study was performed only at rest. COMPARISON: CT a abdomen and pelvis with bilateral runoff 06/28/2023 Lower extremity arterial duplex 05/10/2023 FINDINGS: Velocities in cm/sec and phasicity as well as the presence of plaque are reported below. RIGHT LEG: Common Femoral: 220, triphasic Profunda Femoris: 252, triphasic Proximal SFA: 213, triphasic Mid SFA: 107, monophasic Distal SFA: Occluded Popliteal: Occluded Tibial: Occluded Distal femoral to [id number] bypass graft: Occluded There is a large complex multiseptated cystic collection seen in the proximal calf US/US arterial duplex LE RT IMPRESSION: 1. There is occlusion of the distal SFA and popliteal artery with a distal femoral to [id number] bypass graft which is also occluded. 2. There is a large multiseptated cystic collection in the proximal calf. Electronically signed by: Frankie Jimenez MD 11/01/2023 04:34 PM EDT
== END 2023-11-01 13:03 | disposition home or self-care (01) ==
LOC: HO.US 13:02
PROVIDERS: PCP Internal Medicine Medical Oncology; Visit Provider Surgery Vascular Surgery
DX: I73.9 Peripheral vascular disease, unspecified (principal)
CPT/HCPCS: 93926; 99212

== ENCOUNTER 2023-11-06 11:02 | Outpatient (AMB) | payer MEDICARE, SELFPAY ==
--- NOTE | 2023-11-06 11:02 | A.OFFVIS_ITS ---
Intake Visit Reasons: 1 wk art US follow up Intake Note: Patient presents for one week follow up. Arterial US performed on October 31. Patient states he is taking 600 mg of gabapentin 4-5 times a day, so he is feeling a little better pain baez but still has a great amount of pain around 3-4 am; wakes him out of his sleep. Allergies No Known Allergies Allergy (Verified 11/06/23 11:08) HPI HPI 1 wk art US follow up: Details: Very pleasant 63-year-old gentleman presents for follow-up regarding his right lower extremity. This continues to be a source of concern for us. He reports pain and discomfort and has difficulty ambulating. He had undergone ultrasound and at that time blood thinners were prescribed for the patient. Unfortunately he was unable to get them due to a cost issue. We are awaiting CT angiogram. He is now for routine follow-up [facility] Medical History Peripheral arterial disease Bakers cyst Nicotine dependence, cigarettes, uncomplicated Complex regional pain syndrome i of right lower limb Arthritis BPH (benign prostatic hyperplasia) Elevated cholesterol S/P angiogram of extremity (07/18/23) Atrial fibrillation History of Palmer's esophagus Splenic vein thrombosis History of femoral angiogram GERD (gastroesophageal reflux disease) COPD (chronic obstructive pulmonary disease) Surgical History Hx of oral surgery Hx of tracheostomy History of esophagogastroduodenoscopy (EGD) H/O colonoscopy Social History Household Members: None Housing: Apartment Are you a primary customer care manager to a significant other at home: No Do you presently have visiting nurse or other home services: No Patient Tobacco Use Status: Current everyday Tobacco user Tobacco use type: Cigarette Cigarette Packs Per Day: 1 Cigarettes Per Day: 20.0 Years Smoked: 41 e-Cigarette/Vaping Use: Former Use Substance Use Type: Marijuana service: No Review of Systems Const All systems reviewed & are unremarkable except as noted in HPI and below Reports no additional complaints ENT Reports Normal hearing present Card Denies chest pain, Denies chest pain at rest, Denies chest pain with activity and Denies pedal edema Resp Denies cough GI Denies abdominal pain Musc Denies abnormal gait, Denies muscle cramps and Denies radiating pain into limb Skin/Breast Denies skin ulcer and Denies wounds Neuro Reports Normal hearing present and Denies abnormal gait Psych Reports no additional complaints Physical Exam Const General: cooperative, healthy appearing and comfortable Orientation/consciousness: oriented to person, oriented to place and oriented to time HEENT Head: Yes normal to inspection Neck Neck: Yes normal visual inspection Carotids: no bruits Chest Chest palpation & inspection: normal inspection of the chest Resp Effort & Inspection: normal respiratory effort and able to speak in complete sentences Auscultation: clear to auscultation bilaterally, no crackles, no rales, no rhonchi and no wheezes Cardio Rate: regular rate Rhythm: regular rhythm Heart sounds: S1 normal heart sound present and S2 normal heart sound present Bruits: no carotid bruits Peripheral pulses: Peripheral pulses 2+ throughout GI Inspection: Yes normal to inspection Skin Other: Erythematous right foot appears almost ischemic in nature. Wounds: no wounds Hair: normal Neuro General: oriented to person, oriented to place and oriented to time Cranial nerves: Yes CN's II-XII intact bilaterally and Yes Normal hearing present Cognition (Neuro): normal cognition Motor exam (neuro): 5/5 motor strength present throughout Extrem Other: venous exam: No significant superficial varicosities or spider telangiectasias, minimal edema General: No clubbing, No cyanosis and No edema Psych Appearance: grossly normal Mental Status: mental status grossly normal Speech and movement: Normal speech and movement present Results Reviewed Results Reviewed: Ultrasound demonstrates occluded bypass. Assessment & Plan Assessment & Plan (1) Peripheral arterial disease: Comment: 06/18/2019 right SFA stent right popliteal plasty 07/18/2023 - diagnostic angiogram 08/13/2023 - right distal SFA to below-knee popliteal bypass with reverse saphenous vein graft Code(s): I73.9 - Peripheral vascular disease, unspecified Category: Medical Plan: In short there is concern about bypass occlusion here. It is quite unusual as I do have reasonable dorsalis pedis signal. Taken the liberty of ordering a CT angiogram and we are trying to expedite this. Unfortunately due to scheduling and hospital issues we are unable to get this in a timely fashion. In addition unfortunately due to cost issues the patient did not get blood thinners. We have provided a coupon and I urged him to get this as soon as possible. We will see him back in a week. Should this progress he may require hospitalization and and this was discussed with the patient. Thank you for allowing us to assist in his care. If there are any questions or concerns please do not hesitate to contact us Coding Level of Care Code Est Pt Level 4 (28035) Diagnoses Peripheral arterial disease I73.9
== END 2023-11-06 11:24 | disposition home or self-care (01) ==
PROVIDERS: PCP Internal Medicine Medical Oncology; Visit Provider Surgery Vascular Surgery
DX: I73.9 Peripheral vascular disease, unspecified (principal)
CPT/HCPCS: 99024

== ENCOUNTER 2023-11-06 13:26 | Outpatient (AMB) | payer MEDICARE, SELFPAY ==
--- NOTE | 2023-11-06 13:28 | MHC.OFFVIS ---
Vital Signs 11/06/23 13:29 Height 6 ft Weight 198 lb BMI 26.9 BP 108/76 Blood Pressure Location Lt brachial Position Sitting Pulse 69 Pulse Source Pulse Oximeter Pulse Oximetry (%) 97 Oxygen Delivery Method Room Air Intake Visit Reasons: Pre Op/Femoral Popliteal Bypass Graft (Dr. Knott) Allergies No Known Allergies Allergy (Verified 11/06/23 13:33) HPI HPI Pre Op/Femoral Popliteal Bypass Graft (Dr. Knott): Details: Zan is a pleasant 63-year-old male, former smoker with 75 pack year history, recently quit with underlying COPD, peripheral vascular disease and atrial fibrillation on ASA 81. He was previously managed on Spiriva with moderate control of symptoms however due to insurance coverage had discontinued. At the last visit he was started on Breo with moderate improvement of symptoms, continues with dyspnea on exertion and dry cough. For the last two days patient developed productive cough with brown sputum, recently picked up rx of doxycyline for skin infection. He denies fevers, chills or chest congestion. Today he presents to review chest CT results. [facility] Medical History Peripheral arterial disease Bakers cyst Nicotine dependence, cigarettes, uncomplicated Complex regional pain syndrome i of right lower limb Arthritis BPH (benign prostatic hyperplasia) Elevated cholesterol S/P angiogram of extremity (07/18/23) Atrial fibrillation History of Palmer's esophagus Splenic vein thrombosis History of femoral angiogram GERD (gastroesophageal reflux disease) COPD (chronic obstructive pulmonary disease) Surgical History Hx of oral surgery Hx of tracheostomy History of esophagogastroduodenoscopy (EGD) H/O colonoscopy Social History Household Members: None Housing: Apartment Are you a primary rn patient care to a significant other at home: No Do you presently have visiting nurse or other home services: No Patient Tobacco Use Status: Current everyday Tobacco user Tobacco use type: Cigarette Cigarette Packs Per Day: 1 Cigarettes Per Day: 20.0 Years Smoked: 41 e-Cigarette/Vaping Use: Former Use Substance Use Type: Marijuana service: No Review of Systems Const Denies chills, Denies excessive sweating, Denies fever(s), Denies headache(s) and Denies night sweats Eyes Denies dry eyes, Denies irritation and Denies itchy eyes ENT Reports Normal hearing present, Denies headache(s), Denies nasal congestion, Denies nasal discharge, Denies post nasal drip and Denies sore throat Card Denies chest pain, Denies chest pain at rest, Denies chest pain with activity, Denies claudication, Denies leg edema, Denies orthopnea and Denies paroxysmal nocturnal dyspnea Resp Denies chest congestion, Denies excessive phlegm production, Denies pain on inspiration, Denies pain with cough and Denies stridor Musc Denies myalgias Neuro Reports Normal hearing present and Denies headache(s) Endo Denies excessive sweating Matt/Lymph Denies lymphadenopathy Aller/Immun Denies itchy eyes and Denies seasonal rhinorrhea Physical Exam Vital Signs: Last Vital Signs Pulse 69 11/06/23 13:29 BP 108/76 11/06/23 13:29 Pulse Ox 97 11/06/23 13:29 Oxygen Delivery Method Room Air 11/06/23 13:29 BMI result Body Mass Index 26.9 Const General: cooperative, healthy appearing, comfortable, no acute distress, well developed and alert Nutritional Appearance: obese Orientation/consciousness: patient oriented x3 Limitations: no limitations HEENT Head: Yes normal to inspection, Yes normocephalic and Yes atraumatic Ears: hearing grossly normal bilaterally and external ears normal Eyes General: appearance normal, both eyes and all related structures Eyelids: Yes eyelids normal Sclerae: sclerae normal EOM: EOMs intact bilaterally Neck Neck: Yes normal visual inspection and Yes no lymphadenopathy Lymphatic: no lymphadenopathy noted Chest Chest palpation & inspection: normal inspection of the chest Resp Effort & Inspection: normal respiratory effort, able to speak in complete sentences, no audible wheezes, no cough, no stridor, not tachypneic, no tripod positioning and no use of accessory muscles Auscultation: diminished lung sounds Cardio Jugular venous distension: no JVD Rate: regular rate Rhythm: regular rhythm Skin Other: warm, dry General skin exam: no rashes or lesions noted Neuro General: patient oriented x3 Cranial nerves: Yes Normal hearing present Cognition (Neuro): normal cognition Gait exam (Neuro): Normal gait present Extrem General: Yes normal to inspection, Yes capillary refill normal, Yes no clubbing, cyanosis or edema and Yes no pedal edema Psych Appearance: grossly normal and well kempt Speech and movement: Normal speech and movement present and Clear speech present Affect: normal affect Attitude: cooperative Thought process: Normal thought process present Thought content: Normal thought content present Insight: Good insight present (Psych) Judgement: Good judgement present (Psych) Results Reviewed Results Reviewed: [facility] [address] [place] [address] [place] [address] CT Scan Report Signed with Addenda Patient: Zan Encinas MR#: [id number] : 1960 Acct:[id number] Age/Sex: 63 / M ADM Date: 09/26/23 Loc: HO.CT Attending Dr: Aleksandra Archuleta NP Ordering Physician: Aleksandra Archuleta NP Date of Service: 09/26/23 Procedure(s): CT chest wo IV con Accession Number(s): [id number] cc: Quinton Callahan MD; Aleksandra Archuleta NP~ ADDENDUM ADDENDUM #1 Results Acknowledgement: Confirmed with Lauren Mejía MA, on 11/06/2023 at 11:03 AM. Report was received and forwarded to Aleksandra Archuleta NP. Rosa Maria Rasheed, 11/06/2023 11:09 AM Electronically signed by: Stephanie Courtney MD 11/12/2023 06:11 PM EDT Addendum Dictated By: Stephanie Courtney MD Addendum Signed By: <Electronically signed by Stephanie Courtney MD in OV> 11/12/231810 Addendum Cosigned By: DD/ TD/TT: 09/26/23 EXAMINATION: CT CHEST WITHOUT CONTRAST CLINICAL INFORMATION: Nicotine dependence, uncomplicated COMPARISON: 08/07/2023, 06/28/23 TECHNIQUE: Multidetector volumetric CT imaging of the chest was done. Axial MIP volume rendering provided. Sagittal and coronal reformatted images were obtained. This CT examination was performed using dose optimization techniques as appropriate, variously including the following: *Automated exposure control *Adjustment of mA and/or kV according to patient size (this includes techniques or standardized protocols for targeted exams where dose is matched to indication/reason for exam; i.e. extremities or head) *Use of iterative reconstruction technique DLP: 204 mGy-cm FINDINGS: LUNGS: Central airways are patent. No suspicious pulmonary nodule. PLEURA: No pleural effusion. MEDIASTINUM: No cardiomegaly. Aorta and pulmonary artery are normal in caliber. No mediastinal adenopathy. Lack of IV contrast suspension for hilar adenopathy. CORONARY ARTERY CALCIFICATION: No coronary artery calcification appreciated. CHEST WALL/AXILLA: No axillary or internal mammary lymphadenopathy. UPPER ABDOMEN: There is large left hydronephrosis versus left renal cyst partially visualized. OSSEOUS STRUCTURES: Degenerative changes of the spine. CT/CT chest wo IV con IMPRESSION: * No suspicious pulmonary nodule. * Large left hydronephrosis versus left renal cyst partially visualized. This exam was submitted to the interpreting radiologist for interpretation on 11/05/2023 5:46 PM CDT. The report will be called to the ordering clinician by a [facility] Physician Emergency Service Worker. Electronically signed by: Stephanie Courtney MD 11/05/2023 06:52 PM EDT RP Dictated By: Stephanie Courtney MD Signed By: <Electronically signed by Stephanie Courtney MD in OV> 11/05/23 1852 DD/ 0733 TD/TT: 09/26/23 0758 Eligibility Worker: Assessment & Plan Assessment & Plan (1) COPD (chronic obstructive pulmonary disease): Code(s): J44.9 - Chronic obstructive pulmonary disease, unspecified Category: Medical (2) Nicotine dependence, cigarettes, uncomplicated: Code(s): F17.210 - Nicotine dependence, cigarettes, uncomplicated Category: Medical Plan Reviewed chest CT which did not reveal any concerning pulmonary findings. However it did reveal large left hydronephrosis vs renal cyst. Will notify PCP. He reports suboptimal effect with Breo, will switch to Trelegy. Patient with bronchitic symptoms however on doxycycline, likely will cover for COPD exacerbation. If symptoms persist after completion patient aware to call office. All questions were answered and patient is in agreement of plan. Will follow-up in 6-8 weeks to assess response to inhaler or sooner if needed. Medications: New fwdwbnhviyq-makapjhuc-pxjndgax 200-62.5-25 mcg (Trelegy Ellipta) 1 inh inhalation DAILY 60 ea 6RF Discontinued fluticasone furoate-vilanterol 200-25 mcg/dose (Breo Ellipta) Discontinued Reason: Patient Completed Course 1 inh inhalation DAILY 60 ea 6RF Coding Level of Care Code Est Pt Level 4 (22359) Diagnoses COPD (chronic obstructive pulmonary disease) J44.9 Nicotine dependence, cigarettes, uncomplicated F17.210
[2023-11-06 13:29] VITALS: BP 108/76; PULSE 69; O2SAT 97; BMI 26.9
== END 2023-11-06 14:02 | disposition home or self-care (01) ==
PROVIDERS: PCP Internal Medicine Medical Oncology; Visit Provider Nurse Practitioner Family
DX: J44.9 Chronic obstructive pulmonary disease, unspecified (principal); F17.210 Nicotine dependence, cigarettes, uncomplicated
CPT/HCPCS: 99214

== ENCOUNTER → 2023-11-06 13:26 | Outpatient (BNVA) | payer MEDICARE, SELFPAY | PROVIDERS: PCP Internal Medicine Medical Oncology; Visit Provider Nurse Practitioner Family | DX: J44.9 Chronic obstructive pulmonary disease, unspecified (principal); F17.210 Nicotine dependence, cigarettes, uncomplicated | CPT/HCPCS: 99212 ==

== ENCOUNTER 2023-11-09 09:05 | Outpatient (REF) | payer MEDICARE, SELFPAY ==
--- NOTE | ~2023-11-09 | CT_ITS ---
EXAMINATION: CT ANGIOGRAPHY ABDOMEN, PELVIS AND LOWER EXTREMITY RUNOFF WITH CONTRAST CLINICAL INFORMATION: I73.9 - Peripheral vascular disease, unspecified COMPARISON: CTA runoff June 28, 2023 TECHNIQUE: Initial noncontrast localizing boilerhouse mechanic images were obtained. Timing boluses at the level of the celiac and popliteal arteries were calculated. Subsequently, arterial phase multidetector volumetric imaging was performed through the abdomen, pelvis and bilateral lower extremities following the administration of 100 mL Omnipaque 350 intravenous contrast. No contrast reaction reported Sagittal and coronal reformatted images were obtained on the technologist workstation. After extensive post-processing on a dedicated 3-D workstation, 3-D reformatted images were uploaded to PACS and reviewed as well. This CT examination was performed using dose optimization techniques as appropriate, variously including the following: *Automated exposure control *Adjustment of mA and/or kV according to patient size (this includes techniques or standardized protocols for targeted exams where dose is matched to indication/reason for exam; i.e. extremities or head) *Use of iterative reconstruction technique DLP: 793 mGy-cm FINDINGS: VASCULAR: Abdominal Aorta: Mild calcified atherosclerotic disease. No dissection or aneurysmal dilation. Normal aortic taper. Mesenteric Arteries: Celiac artery patent. Superior mesenteric artery patent. 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 Renal Artery: 3 right and 2 left renal arteries. Renal arteries are patent and without stenosis or other vascular anomaly. Right Lower Extremity: Right Common Iliac Artery: Patent. Mild calcified atherosclerotic disease resulting in no high grade stenosis. Right External Iliac Artery: Patent. Mild calcified atherosclerotic disease resulting in no high grade stenosis. Right Internal Iliac Artery: Patent. Common Femoral Artery: Patent. Mild calcified atherosclerotic disease resulting in no high grade stenosis. Superficial Femoral Artery: Patent. Mild calcified atherosclerotic disease resulting in no high grade stenosis. Distal SFA stent occluded. Profunda Femoris: Patent. Popliteal Artery: Popliteal stent occluded. [place] popliteal artery below stent occluded for a short segment until it re-opacifies at the level of the femoral condyles from intramuscular collaterals. Tibioperoneal Trunk: Patent. Anterior Tibial Artery: Patent. Peroneal Artery: Patent. Posterior Tibial Artery: Intermittent stenoses throughout its course until eventual nonopacification at the level of the distal tibia. Dorsalis Pedis: Diminutive in caliber and faintly opacified. Plantar Arch: Patent. Left lower extremity: Left Common Iliac Artery: Patent. Mild calcified atherosclerotic disease resulting in no high grade stenosis. Left External Iliac Artery: Patent. Mild calcified atherosclerotic disease resulting in no high grade stenosis. Left Internal Iliac Artery: Patent. Common Femoral Artery: Patent. Mild calcified atherosclerotic disease resulting in no high grade stenosis. Superficial Femoral Artery: Patent. Mild calcified atherosclerotic disease resulting in no high grade stenosis. Profunda Femoris: Patent. Popliteal Artery: Patent. Focal 50% stenosis at the level of tibial plateau. Tibioperoneal Trunk: Patent. Anterior Tibial Artery: Patent. Peroneal Artery: Patent. Posterior Tibial Artery: Intermittent stenosis versus long segment occlusion of the proximal segment. The mid to distal segment patent.. Dorsalis Pedis: Patent. Plantar Arch: Patent. NONVASCULAR FINDINGS: ABDOMEN/PELVIS: Lung Bases: The visualized lung bases are clear. Liver: Homogeneous in attenuation. Normal in size. Gallbladder: Noninflamed. Biliary System: No intrahepatic or extrahepatic biliary dilation. Pancreas: Homogeneous in attenuation. Spleen: Normal in size. Genitourinary: Bilateral kidneys demonstrate symmetric enhancement. No perinephric fluid collection. No renal calculi. No hydroureteronephrosis. Adrenal Glands: Unremarkable. Reproductive: Prostatomegaly Gastrointestinal: The visualized alimentary tract is normal in course. Diverticular disease without diverticulitis. No evidence of obstruction. Appendix: The appendix is seen in its entirety and is unremarkable. Peritoneum: No pneumoperitoneum. No intra-abdominal fluid collection. Lymph Nodes: No pathologically enlarged abdominal or pelvic lymph nodes. Soft Tissues/Musculoskeletal: Intramuscular cystic lesion measuring 2.9 x 2.8 cm along the medial aspect of right soleus muscle. Right dorsal foot soft tissue swelling. Degenerative disc disease at L3-4. No acute fractures or focal osseous lesions. CT/CT angio abd aorta runoff IMPRESSION: VASCULAR: Overall, below vascular findings are not significantly changed since prior CTA runoff June 28, 2023. Abdomen/Pelvis: No abdominal aortic aneurysm or dissection. Right Lower Extremity: 1. Occlusion of the distal superficial femoral and popliteal artery stent. 2. Below the stent, the kaw popliteal is occluded for a short segment with eventual string-like opacification at the level of the tibial plateau, where it receives supply from intramuscular collaterals. 3. Two-vessel runoff to the foot via the anterior tibial and peroneal arteries. Posterior tibial artery demonstrates intermittent stenoses throughout its course until eventual non-opacification at the level of the distal tibia. 4. Dorsalis pedis diminutive in caliber, but favored to be patent. 5. Plantar arch patent. Left Lower Extremity: 1. Short segment 50% stenosis of the popliteal artery at the level of the tibial plateau. 2. Three vessel runoff to the foot. However, there is intermittent stenosis versus long segment calcific occlusion of the proximal posterior tibial artery. Mid and distal segment of the posterior tibial artery is patent. 3. Dorsalis pedis and plantar arch patent. NONVASCULAR: Intramuscular fluid collection measuring 2.9 x 2.8 cm within the right medial soleus, new since prior CTA June 28, 2023. Fleischner guidelines were followed. Electronically signed by: Jb Richards DO 11/13/2023 03:17 PM EDT
[2023-11-09] MEDS: iohexoL 350 MG/ML 100 ML INFUS..BTL 99 ML IV (09:58)
[2023-11-12 08:11] LABS: Creatinine POC 0.8 mg/dL (0.5-1.4); GFR POC > 60
== END 2023-11-09 09:06 | disposition home or self-care (01) ==
LOC: HO.CT 09:05
PROVIDERS: PCP Internal Medicine Medical Oncology; Visit Provider Surgery Vascular Surgery
DX: I73.9 Peripheral vascular disease, unspecified (principal)
CPT/HCPCS: 75635; 82565; 99212; Q9967

== ENCOUNTER 2023-11-13 10:42 | Outpatient (AMB) | payer MEDICARE, SELFPAY ==
[2023-11-13 10:57] VITALS: BMI 26.9
--- NOTE | 2023-11-13 10:57 | A.OFFVIS_ITS ---
Vital Signs 11/13/23 10:57 Height 6 ft Weight 198 lb BMI 26.9 Intake Visit Reasons: 1w follow up CTA with runoff Intake Note: follow up CTA w/ runoff 11/09/23, pt states foot pain and throbbing constantly. States when he steps on foot or standing, at nighttime pain in the right foot. Pt states he taking gabapentin to help, but only helps so much. Pt states when his leg is elevated he has severe pain and also states foot goes white. Accompanied by: Self / Same As Patient Allergies No Known Allergies Allergy (Verified 11/13/23 11:01) HPI HPI 1w follow up CTA with runoff: Details: 63-year-old gentleman who had undergone right distal SFA to below-knee popliteal bypass with reverse saphenous vein presents for follow-up. He has undergone CT angiogram. Unfortunately this was a stat read and radiology has not provided a read. Multiple requests have been made yet they fail to follow-up. Unfortunately it appears that he has headed towards critical limb ischemia unclear of the status of the bypass graft but I do suspect it is occluded based on ultrasound and the minimal trickle flow that I do see through my interpretation of CT scan [facility] Medical History Peripheral arterial disease Bakers cyst Nicotine dependence, cigarettes, uncomplicated Complex regional pain syndrome i of right lower limb Arthritis BPH (benign prostatic hyperplasia) Elevated cholesterol S/P angiogram of extremity (07/18/23) Atrial fibrillation History of Palmer's esophagus Splenic vein thrombosis History of femoral angiogram GERD (gastroesophageal reflux disease) COPD (chronic obstructive pulmonary disease) Surgical History Hx of oral surgery Hx of tracheostomy History of esophagogastroduodenoscopy (EGD) H/O colonoscopy Social History Household Members: None Housing: Apartment Are you a primary care professional to a significant other at home: No Do you presently have visiting nurse or other home services: No Patient Tobacco Use Status: Current everyday Tobacco user Tobacco use type: Cigarette Cigarette Packs Per Day: 1 Cigarettes Per Day: 20.0 Years Smoked: 41 e-Cigarette/Vaping Use: Former Use Substance Use Type: Marijuana service: No Review of Systems Const All systems reviewed & are unremarkable except as noted in HPI and below Reports no additional complaints ENT Reports Normal hearing present Card Denies chest pain, Denies chest pain at rest, Denies chest pain with activity and Denies pedal edema Resp Denies cough GI Denies abdominal pain Musc Denies abnormal gait, Denies muscle cramps and Denies radiating pain into limb Skin/Breast Denies skin ulcer and Denies wounds Neuro Reports Normal hearing present and Denies abnormal gait Psych Reports no additional complaints Physical Exam Vital Signs: BMI result Body Mass Index 26.9 Const General: cooperative, healthy appearing and comfortable Orientation/consciousness: oriented to person, oriented to place and oriented to time HEENT Head: Yes normal to inspection Neck Neck: Yes normal visual inspection Carotids: no bruits Chest Chest palpation & inspection: normal inspection of the chest Resp Effort & Inspection: normal respiratory effort and able to speak in complete sentences Auscultation: clear to auscultation bilaterally, no crackles, no rales, no rhonchi and no wheezes Cardio Rate: regular rate Rhythm: regular rhythm Heart sounds: S1 normal heart sound present and S2 normal heart sound present Bruits: no carotid bruits Peripheral pulses: Peripheral pulses 2+ throughout GI Inspection: Yes normal to inspection Skin Other: Right foot erythematous with ulceration on dorsum of foot Wounds: no wounds Hair: normal Neuro General: oriented to person, oriented to place and oriented to time Cranial nerves: Yes CN's II-XII intact bilaterally and Yes Normal hearing present Cognition (Neuro): normal cognition Motor exam (neuro): 5/5 motor strength present throughout Extrem Other: venous exam: No significant superficial varicosities or spider telangiectasias, minimal edema General: No clubbing, No cyanosis and No edema Psych Appearance: grossly normal Mental Status: mental status grossly normal Speech and movement: Normal speech and movement present Assessment & Plan Assessment & Plan (1) Peripheral arterial disease: Code(s): I73.9 - Peripheral vascular disease, unspecified Category: Medical Plan: Patient appears to have critical right lower extremity ischemia. I have discussed the pathophysiology of peripheral vascular disease with the patient. I have also discussed risk factor modification. I have reviewed the patient's arterial testing which reveals occluded bypass. Unfortunately CT scan was ordered stat. Radiology has not responded for nearly 4 days. Multiple requests have been made it we have not gotten a read back yet. the patient would benefit from a right leg endovascular peripheral angiogram with possible angioplasty, stent, and/or atherectomy. This has been discussed in detail with the patient along with risks, benefits, and complications. This includes but is not limited to bleeding, infection, heart attack, need for emergent surgical repair, limb ischemia, blood vessel damage, bleeding, puncture, kidney injury, bruising, allergic reaction, and skin reaction. The patient demonstrates a clear understanding. We will schedule for the next appropriate time. Thank you for allowing us to assist in this patient's care. Coding Level of Care Code Est Pt Level 4 (93533) Diagnoses Peripheral arterial disease I73.9
== END 2023-11-13 11:24 | disposition home or self-care (01) ==
PROVIDERS: PCP Internal Medicine Medical Oncology; Visit Provider Surgery Vascular Surgery
DX: I73.9 Peripheral vascular disease, unspecified (principal)
CPT/HCPCS: 99214

== ENCOUNTER → 2023-11-13 10:42 | Outpatient (BNVA) | payer MEDICARE, SELFPAY | PROVIDERS: PCP Internal Medicine Medical Oncology; Visit Provider Surgery Vascular Surgery | DX: I73.9 Peripheral vascular disease, unspecified (principal) | CPT/HCPCS: 99212 ==

== ENCOUNTER 2023-11-19 07:21 | Day surgery (SDC) | payer MEDICARE, SELFPAY ==
[2023-11-19] VITALS (9 sets, daily range): BP systolic 123–144; BP diastolic 66–76; PULSE 54–64; RESP 14–18; TEMP 36.1–36.6; O2SAT 96–100; BMI 25.8
[2023-11-19 07:52] LABS: MANUAL DIFF FLAG NO
[2023-11-19 07:54] LABS: Basophils Absolute Auto 0.1 X10*3/uL (0.0-0.2); Basophils Percent Auto 0.8 % (0-2); Eosinophils Absolute Auto 0.3 X10*3/uL (0.0-0.4); Eosinophils Percent Auto 3.1 % (0-4); Hemoglobin 15.5 g/dl (14.0-18.0); Imm Gran Abs Auto 0.03 X10*3/uL (0.00-0.03); Imm Gran Pct Auto 0.4 % (0.0-0.4); Lymphocytes Absolute Auto 1.7 X10*3/uL (1.2-4.9); Lymphocytes Percent Auto 19.9 % (20-40); Mean Corpuscular HGB Conc 33.7 g/dl (31.0-36.0); Mean Corpuscular Hemoglobin 32.7 pg (27.0-33.0); Mean Platelet Volume 9.8 fL (9.4-12.4); Monocytes Absolute Auto 0.9 X10*3/uL (0.1-1.2); Monocytes Percent Auto 10.5 % (2-11); Neutrophils Absolute Auto 5.5 x10*3/uL (2.0-8.3); Neutrophils Percent Auto 65.3 % (45-73); Platelet Count 261 X10*3/uL (160-400); Red Blood Count 4.74 X10*6/uL (4.60-5.80); Red Cell Distribution Width 11.9 % (11.0-16.0); White Blood Count 8.4 X10*3/uL (4.8-10.8)
[2023-11-19 08:00] LABS: INTERNATIONAL NORM RATIO 0.9 (0.9-1.1); Prothrombin Time 10.3 SEC (10.9-12.4)
[2023-11-19 08:03] LABS: Partial Thromboplastin Time 31.9 SEC (26.0-36.8)
[2023-11-19 08:13] LABS: Anion Gap 11 (12-20); Blood Urea Nitrogen 20 mg/dL (9-16); Calcium 9.6 mg/dL (8.4-10.2); Carbon Dioxide 28 mmol/L (22-29); Chloride 109 mmol/L (96-108); Estimated Glomerular Filt Rate > 60; Glucose Random 99 mg/dL (60-115); Potassium 4.5 mmol/L (3.3-5.1); Sodium 143 mmol/L (135-145)
[2023-11-19] MEDS: 0.9 % Sodium Chloride 1,000 ML 100 ML IVCONT (08:35)
--- NOTE | 2023-11-19 10:35 | P.OP_ITS ---
Operative Note Operative Note Date of Service: 11/19/23 Narrative: Angiogram report from [facility] Preoperative diagnosis: Atherosclerosis of right lower extremity with nonhealing ulcer Postoperative diagnosis: Same Procedure: 1. Ultrasound-guided left common femoral access 2. Aortogram with right lower extremity runoff Surgeon:Bimal Knott M.D., FACS, RPVI Infusion Nurse:None Anesthesia: Local with moderate conscious sedation. Total intraservice moderate sedation time was 40 minutes. I monitored the patient's level of consciousness and physiologic status continuously throughout the procedure. Specimens:none Drains:none Estimated blood loss: Less than 10 ml Implant: None Indications: Very pleasant 63-year-old gentleman who had undergone right distal SFA to below-knee popliteal bypass that had gone on to occlude. He has developed nonhealing ulcers and has become quite painful for him. Now presents for endovascular intervention The patient has signed the informed consent after reviewing risks, complications, benefits, and alternatives previously discussed with the patient. The patient was given the opportunity to ask any additional questions or voice any concerns. All questions were answered to the patient's satisfaction. Procedure in detail: Patient was brought to the angiography suite prior to which a time-out was called for patient identification and site verification. Bilateral groins were prepped and draped in the standard surgical fashion. Under ultrasound guidance left common femoral was punctured with micro puncture needle and wire. Subsequently a precision 5 Guyanese sheath was then placed. Bentson wire was advanced to the level of the aorta. 5 Guyanese Flush catheter was brought up and parked at the level of the renal arteries. Aortogram was then undertaken. Catheter was brought down to the level of the iliac b ifurcation. Iliacs were subsequently imaged. Catheter was then brought in up and over to the right side SFA. Runoff study was then undertaken. We then advanced an [address] down into the distal SFA just above the occluded stent. Multiple attempts with a Navicross catheter and this advantage wire was used to try to cannulate the old bypass graft. The appeared to be completely occluded and we were unable to access this. We took multiple orthogonal views. In addition we exchanged out for an 018 Nitrex wire which we were unable to traverse this occlusion with as well. At this point we decided to take additional images and procedure was terminated. Catheter wire was brought back to the ipsilateral side. Through the sheath we imaged the femoral puncture. It demonstrated an appropriate stick. At this point a CELT 5 Guyanese closure device was then used. Adequate hemostasis was achieved. Patient had a nice palpable femoral pulse at the conclusion of this. Patient was brought back to the recovery with stable vitals. Interpretation of films: 1. Ultrasound demonstrates appropriate femoral access site. Vessel was patent with minimal stenosis. Needle entry was visualized. Image of ultrasound was saved. 2. Aortogram demonstrates appropriate caliber aorta. Minimal disease. Appropriate take-off of the renals. 3. Iliac images demonstrate no significant disease 4. Right Leg Common femoral artery: Patent Profundus Femoris: No significant disease Superficial femoral artery: Patent all the way up to the distal SFA. Occludes at the level of the stent. Above it should be the distal SFA to below-knee popliteal bypass which is totally occluded as well. Popliteal artery (p1,p2,p3): Total occlusion, reconstitutes at the below-knee level which is more likely the P3 Anterior tibial artery: Runoff to the foot Peroneal artery: Runoff to the foot Posterior tibial artery: Diminutive and occludes proximal 3rd Dorsalis pedis/plantar arch: Incomplete Conclusion: 1. Successful diagnostic angiogram. It appears that the bypass is occluded. We were unable to cannulate this. 2. Anticoagulation status: Resume Eliquis tonight This note is constructed using voice recognition software. While every effort has been made to ensure accuracy, civil engineer land development errors may have been included. Thank you for allowing me to participate in the care of your patient. Yours sincerely, Bimal Knott MD, FACS, R.P.V.I.
[2023-11-19] MEDS: Morphine Sulfate 2 MG/ML CARTRIDGE 4 MG IVPUSH (10:55)
== END 2023-11-19 14:20 | disposition home or self-care (01) ==
PROVIDERS: Radiology Vascular & Interventional Radiology; PCP Internal Medicine Medical Oncology; Visit Provider Surgery Vascular Surgery
PROC: (CPT 36245; principal; 2023-11-19 09:00)
DX: I70.238 Atherosclerosis of native arteries of right leg with ulceration of other part of lower leg (principal); I70.92 Chronic total occlusion of artery of the extremities; L97.819 Non-pressure chronic ulcer of other part of right lower leg with unspecified severity; F17.200 Nicotine dependence, unspecified, uncomplicated; Z79.01 Long term (current) use of anticoagulants
CPT/HCPCS: 36245; 36415; 75630; 76937; 80048; 85025; 85610; 85730; 99152; 99153; C1750; C1760; C1769; C1887; C1894; J1644; J2250; J2270; J2310; J3010; Q9967

== ENCOUNTER → 2023-11-19 07:21 | Outpatient (BNV) | payer MEDICARE, SELFPAY | PROVIDERS: PCP Internal Medicine Medical Oncology; Visit Provider Surgery Vascular Surgery | DX: I70.231 Atherosclerosis of native arteries of right leg with ulceration of thigh (principal) | CPT/HCPCS: 36247; 75625; 75710; 76937; 99152 ==

== ENCOUNTER 2023-12-17 12:55 | Outpatient (AMB) | payer MEDICARE, SELFPAY ==
--- NOTE | 2023-12-17 12:57 | A.OFFVIS_ITS ---
Intake Visit Reasons: staple removal Intake Note: pt here for staple removal s/p Right LE revascularization w/ Dr.Matthew Segundo who re-did a bypass 12/02/23. Has [facility]NA QOD or 3 times per week. Also has Right foot wound he states looks a little better. He states he had drains and wound vac in his incisions as well, they were removed last Sunday Accompanied by: Self / Same As Patient Allergies No Known Allergies Allergy (Verified 12/17/23 13:06) HPI HPI staple removal: Details: Zan is a 63-year-old pleasant male who is presenting today for a follow-up status post for revascularization due to a failed SFA to below-knee pop bypass with ipsilateral GSV performed by Dr. Powers at [facility] on 12/02/2023. He is being seen today for staple removal in the pretibial as well as the right groin area. He is having VNA services 3 times a week for wound care of an ulcer on his right big toe, which he states is healing. He states he overall feels m uch better and is very happy with the increased circulation to his leg. His pain is well controlled with Tylenol 1000 mg twice a day. He states that the swelling has decreased as well. He has not needed any other pain control for several days now. He did have a drain and wound VAC removed this past Sunday from the right groin area. He is asking when he can take a shower. He states he is able to get up and walk with his walker. He has been elevating his leg while sitting as well as at night. He is sleeping well. [facility] Medical History (Updated 12/17/23 @ 14:23 by Sera Saxena PA-C) Peripheral arterial disease Bakers cyst Nicotine dependence, cigarettes, uncomplicated Complex regional pain syndrome i of right lower limb Arthritis BPH (benign prostatic hyperplasia) Elevated cholesterol S/P angiogram of extremity (07/18/23) Atrial fibrillation History of Palmer's esophagus Splenic vein thrombosis History of femoral angiogram GERD (gastroesophageal reflux disease) COPD (chronic obstructive pulmonary disease) Surgical History Hx of oral surgery Hx of tracheostomy History of esophagogastroduodenoscopy (EGD) H/O colonoscopy Social History (Updated 12/17/23 @ 13:09 by Angella Jaramillo [facility]) Household Members: None Housing: Apartment Are you a primary care director to a significant other at home: No Do you presently have visiting nurse or other home services: No Patient Tobacco Use Status: Former Tobacco user Tobacco use type: Cigarette Cigarette Packs Per Day: 1 Cigarettes Per Day: 0 Years Smoked: 41 e-Cigarette/Vaping Use: Former Use Substance Use Type: Marijuana service: No Review of Systems Const Reports as per HPI and Denies weakness ENT Reports Normal hearing present and Denies dizziness Card Reports as per HPI, Denies chest pain, Denies chest pain at rest, Denies chest pain with activity, Denies dyspnea and Denies dyspnea on exertion Resp Reports as per HPI, Denies cough, Denies dyspnea and Denies dyspnea on exertion GI Reports as per HPI, Denies abdominal pain, Denies nausea and Denies vomiting Musc Denies numbness Skin/Breast Reports as per HPI, Denies erythema and Denies wounds Neuro Reports Normal hearing present, Denies dizziness, Denies numbness, Denies Sensory deficit (Neuro) and Denies weakness Psych Reports no additional complaints Endo Reports no additional complaints Physical Exam Const General: healthy appearing and no acute distress Orientation/consciousness: patient oriented x3 HEENT Head: Yes normal to inspection Ears: hearing grossly normal bilaterally Mouth: Normal oral and palatal mucosa present Resp Effort & Inspection: normal respiratory effort and able to speak in complete sentences Auscultation: clear to auscultation bilaterally Cardio Jugular venous distension: no JVD Rate: regular rate Rhythm: regular rhythm Heart sounds: S1 normal heart sound present and S2 normal heart sound present Bruits: no abdominal aortic bruits, no carotid bruits, no femoral bruits and no renal bruits Peripheral pulses: Peripheral pulses 2+ throughout GI Inspection: Yes normal to inspection Palpation (GI): No Abdominal aortic bruit present Skin Other: Right groin: 21 lazarus intact. Small area where drain was placed is healing, no concerns for infection. The lazarus are clean, dry, and intact. There is slight crusting around a couple of the lazarus. Patient states most painful in the area of the intertriginous region. Right tibial area: 7 lazarus intact. No erythema surrounding. Lazarus are clean, dry, and intact. Base of R1 toe: Clean dressing intact, sticking to wound bed. Saline used to take dressing off. Wound is approximately 3 cm x 1.5 cm. Periwound is clean, dry and pink. Dry skin easily debrided with forceps. Wound is nondraining with pink granulation tissue and small amount of dry eschar in the wound bed. Strong and palpable DP and PT pulses. Skin is warm, dry, and pink. General skin exam: no rashes or lesions noted Wounds: no wounds Hair: normal Neuro General: patient oriented x3 Cranial nerves: Yes Normal hearing present Cognition (Neuro): normal cognition Gait exam (Neuro): Normal gait present Motor exam (neuro): 5/5 motor strength present throughout Sensory Exam: No Sensory deficit (Neuro) Extrem General: Yes normal to inspection, Yes full ROM, Yes capillary refill normal and Yes normal gait Assessment & Plan Assessment & Plan (1) S/P angiogram of extremity: Onset Date: 07/18/23 Comment: 07/18/23-Right LE, diagnostic Code(s): Z98.890 - Other specified postprocedural states Category: Medical Plan: Zan presents today status post SFA to below-knee pop bypass with ipsilateral GSV from [facility] by Dr. Segundo on December 01. He is present today for staple removal of the pretibial and right groin areas. He had removal of drains and wound VAC on the right groin on Sunday. He states he is doing much better with less pain. We removed the 7 lazarus from the pretibial area 1st and then the 21 groin lazarus, which we did in steps due to the increased pain. They were all removed with success. We then covered the sites with bacitracin and Allevyn dressing. We discussed he can remove both of those dressings tomorrow and then take a shower. He has a healing ulcer on the base of the R1 toe. He is having dressing changes 3 times a week by VNA; they are just applying a dry dressing and Kerlix wrap. The wound is very dry we will be changing his dressing changes to a Xeroform, 4 x 4, and Kerlix to be changed by VNA 3 times a week. We discussed that the best course of action would be to take a shower prior to the VNA coming in and they could do the new dressings after he showers. We will have him continue Tylenol a 1000 mg twice a day; we did discuss that he could do 3 times a day if needed be for pain. He is on Augmentin for 10 days due to prevention of infection. He has a follow-up with Dr. Segundo in early January. Due to the ongoing wound, we will have him come back in 2 weeks for a wound care check. He is currently taking Chantix for for smoking cessation; we discussed that this is very important for his healing and encouraged him to continue. We discussed if that he has any questions or concerns he can call the office and we can squeeze him in sooner. Coding Level of Care Code Established Pt Est Pt Level 4 (47119) Established Pt Complex EM visit Add On G2211 Patient Type Established Diagnoses S/P angiogram of extremity Z98.890
== END 2023-12-17 13:46 | disposition home or self-care (01) ==
PROVIDERS: PCP Internal Medicine Medical Oncology; Visit Provider Physician Assistant Surgical
DX: Z98.890 Other specified postprocedural states (principal)
CPT/HCPCS: 99214; G2211

== ENCOUNTER → 2023-12-17 12:55 | Outpatient (BNVA) | payer MEDICARE, SELFPAY | PROVIDERS: PCP Internal Medicine Medical Oncology; Visit Provider Physician Assistant Surgical | DX: Z98.890 Other specified postprocedural states (principal) | CPT/HCPCS: 99212 ==

== ENCOUNTER 2023-12-24 07:57 | Outpatient (AMB) | payer MEDICARE, SELFPAY ==
--- NOTE | 2023-12-24 07:59 | A.OFFVIS_ITS ---
Intake Visit Reasons: possible left hydronephrosis Intake Note: New Patient presents for initial visit for hydronephrosis Urology Medications: tamsulosin Blood Thinner: eliquis Tactical Air Control Party Required: No Accompanied by: Self / Same As Patient Allergies No Known Allergies Allergy (Verified 12/24/23 09:27) Medication List - Last Reconciled 12/24/23 by JUNIOR Saenz albuterol sulfate 90 mcg/actuation 2 puffs inhalation Q4-6H PRN amoxicillin-pot clavulanate 875-125 mg 1 tab PO BID apixaban (Eliquis DVT-PE Treat 30D Start) PO PER PKG DIR apixaban (Eliquis) 5 mg PO BID ascorbic acid (vitamin C) (Vitamin C) 500 mg PO DAILY aspirin (Luis Low Dose Aspirin) 81 mg PO DAILY atorvastatin 10 mg PO DAILY rygojyaubbs-shfpepfra-flemfaea 200-62.5-25 mcg (Trelegy Ellipta) 1 inh inhalat ion DAILY gabapentin 100 mg PO BID gabapentin 800 mg PO BID metoprolol succinate ER 25 mg PO DAILY ej-dfq-tnraw-J0-upvfcjw-idrxrx 611-92-045-300 mcg (Centrum Silver Men) 1 tab PO DAILY oxycodone mg PO oxycodone-acetaminophen 5-325 mg (Percocet) 1 tab PO Q8H PRN oxycodone-acetaminophen 5-325 mg (Percocet) 1 tab PO TID PRN pantoprazole 80 mg PO DAILY@0630 tamsulosin 0.8 mg PO DAILY varenicline 0 ea PO HPI Comments Details: Zan is a very pleasant 63-year-old male patient of Dr. Callahan. He has a past medical history of peripheral arterial disease, nicotine dependence, BPH, elevated cholesterol, AFib, Palmer's esophagus, GERD, and COPD. He presents to the office today as a new patient for question renal cysts verses hydronephrosis. In discussion with the patient today he reports having followed up with pulmonology and undergoing surveillance monitoring of lung cancer as he has a longstanding history of nicotine dependence. He reports imaging noted potential swelling or cyst of left kidney and recommendations were made for urology referral for further assessment evaluation. These results were reviewed with the patient today. Large left hydronephrosis versus left renal cysts partially visualized. We discussed at length potential causes of hydronephrosis versus renal cysts. Discussed obtaining further imaging for further assessment evaluation. He reports a longstanding history of urinary issues since the early ages of 28 when he had experienced prostatitis. He reports being on Flomax 0.8 mg daily and feels this has been helpful however does continue to experience episodes of urinary hesitancy. In review of patient's chart it appears PSAs are as follows 04/21 1.1. In office urinalysis results reviewed with the patient today. He otherwise denies incontinence, nocturia, hematuria, dysuria, foul smelling urine, flank pain, fever, and or chills. He discusses his ongoing issues with his right foot/leg and undergoing multiple surgical interventions for circulation issues he has been experiencing. He otherwise offers no other issues or concerns at this time. [facility] Medical History Peripheral arterial disease Bakers cyst Nicotine dependence, cigarettes, uncomplicated Complex regional pain syndrome i of right lower limb Arthritis BPH (benign prostatic hyperplasia) Elevated cholesterol S/P angiogram of extremity (07/18/23) Atrial fibrillation History of Palmer's esophagus Splenic vein thrombosis History of femoral angiogram GERD (gastroesophageal reflux disease) COPD (chronic obstructive pulmonary disease) Surgical History Hx of oral surgery Hx of tracheostomy History of esophagogastroduodenoscopy (EGD) H/O colonoscopy Social History Household Members: None Housing: Apartment Are you a primary resident care manager rn to a significant other at home: No Do you presently have visiting nurse or other home services: No Patient Tobacco Use Status: Former Tobacco user Tobacco use type: Cigarette Cigarette Packs Per Day: 1 Cigarettes Per Day: 0 Years Smoked: 41 e-Cigarette/Vaping Use: Former Use Substance Use Type: Marijuana service: No Review of Systems Const Reports as per HPI Eyes Reports no additional complaints ENT Reports no additional complaints Card Reports as per [facility] Resp Reports as per [facility] GI Reports as per HPI Reports as per [facility] Musc Reports as per [facility] Skin/Breast Reports as per [facility] Neuro Reports no additional complaints Psych Reports no additional complaints Endo Reports no additional complaints Matt/Lymph Reports as per [facility] Aller/Immun Reports no additional complaints Physical Exam Const General: cooperative, comfortable, no acute distress, well developed, alert and awake Orientation/consciousness: patient oriented x3 Limitations: no limitations HEENT Head: Yes normal to inspection, Yes normocephalic and Yes atraumatic Ears: hearing grossly normal bilaterally Eyes General: appearance normal, both eyes and all related structures Neck Neck: Yes normal visual inspection and Yes trachea midline Chest Chest palpation & inspection: normal inspection of the chest Resp Effort & Inspection: normal respiratory effort and able to speak in complete sentences Cardio Rate: regular rate GI Inspection: Yes normal to inspection General: Yes no CVA tenderness Back/Spine/Pelvis Back: no CVA tenderness Skin General skin exam: no rashes or lesions noted Neuro General: patient oriented x3 Extrem General: Yes normal to inspection Psych Appearance: grossly normal and well kempt Mental Status: mental status grossly normal Speech and movement: Normal speech and movement present and Clear speech present Affect: normal affect Attitude: cooperative Thought process: Normal thought process present Thought content: Normal thought content present Insight: Fair insight present (Psych) Judgement: Fair judgement present (Psych) Results AMB Urinalysis, Automated UA Leukoctes 0 Karyna/uL Last Edit by [employer] on 12/24/23 08:20 UA Nitrite Last Edit by [employer] on 12/24/23 08:20 UA Urobilinogen 0.2 mg/dL Last Edit by [employer] on 12/24/23 08:20 UA Protein 15 mg/dL Last Edit by [employer] on 12/24/23 08:20 UA pH 6.0 Last Edit by [employer] on 12/24/23 08:20 UA Blood 0 Tunde/uL Last Edit by [employer] on 12/24/23 08:20 UA Specific [place] 1.015 Last Edit by [employer] on 12/24/23 08:20 UA Ketone Last Edit by [employer] on 12/24/23 08:20 UA Bilirubin 0 mg/dL Last Edit by Micah Vasquez on 12/24/23 08:20 UA Glucose 0 mg/dL Last Edit by Micah Vasquez on 12/24/23 08:20 Results Reviewed Results Reviewed: Laboratory Last Values Urine pH (Auto) 6.0 12/24/23 08:11 Specific [place] (Auto) 1.015 12/24/23 08:11 Urine Protein (Auto) 15 mg/dL 12/24/23 08:11 Glucose (UA)(Auto) 0 mg/dL 12/24/23 08:11 Urine Blood (Auto) 0 Tunde/uL 12/24/23 08:11 Urine Bilirubin (Auto) 0 mg/dL 12/24/23 08:11 Urine Urobilinogen (Auto) 0.2 mg/dL 12/24/23 08:11 Leukocyte Esterase (Auto) 0 Karyna/uL 12/24/23 08:11 Date of Service: 09/26/23 EXAMINATION: CT CHEST WITHOUT CONTRAST FINDINGS: LUNGS: Central airways are patent. No suspicious pulmonary nodule. PLEURA: No pleural effusion. MEDIASTINUM: No cardiomegaly. Aorta and pulmonary artery are normal in caliber. No mediastinal adenopathy. Lack of IV contrast suspension for hilar adenopathy. CORONARY ARTERY CALCIFICATION: No coronary artery calcification appreciated. CHEST WALL/AXILLA: No axillary or internal mammary lymphadenopathy. UPPER ABDOMEN: There is large left hydronephrosis versus left renal cyst partially visualized. OSSEOUS STRUCTURES: Degenerative changes of the spine. IMPRESSION: * No suspicious pulmonary nodule. * Large left hydronephrosis versus left renal cyst partially visualized. Assessment & Plan Assessment & Plan (1) Hydronephrosis: Code(s): N13.30 - Unspecified hydronephrosis Category: Medical (2) Renal cyst: Code(s): N28.1 - Cyst of kidney, acquired Category: Medical Plan In office urinalysis results reviewed with the patient today; as noted above. Recent CT results reviewed with the patient today; as noted above. Discussed at length potential causes of hydronephrosis verses renal cysts. Discussed possible initiation of terazosin; patient will think about this. Will obtain CT of the abdomen and pelvis for further assessment evaluation. BUN and creatinine ordered for imaging. Follow-up in 1-2 months with imaging and labs to be completed prior; or sooner with any issues, concerns, and or questions. Orders: Orders AMB Urinalysis Automated Today Z13.9 - Encounter for screening, unspecified CT abdomen pelvis wo/w IV con Today N13.30 - Unspecified hydronephrosis, N28.1 - Cyst of kidney, acquired Blood Urea Nitrogen Today N13.30 - Unspecified hydronephrosis, N28.1 - Cyst of kidney, acquired Creatinine Today N13.30 - Unspecified hydronephrosis, N28.1 - Cyst of kidney, acquired Patient Instructions: The patient had an opportunity to ask questions regarding the treatment plan. All questions were answered. Physical exam, labs, and imaging were discussed and reviewed in detail. As well as risks, benefits, and discussion of treatment choices. No major barriers to understanding were identified. The patient expressed understanding and agreement with the above treatment plan. The patient was made aware they should contact our office by phone for worsening of their current condition, the appearance of new symptoms, or with any questions or concerns. Compliance is encouraged with any medications and follow up testing that is ordered. It is a privilege to be allowed the opportunity to participate in? your urological care.? Again, if you have any questions or concerns If you have any questions or concerns please do not hesitate to contact me. The office is [phone]. This note is constructed using voice recognition software. While every effort has been made to ensure accuracy graphics programmer errors may have been included. Yours sincerely, JUNIOR Saenz Coding Level of Care Code New Pt Level 3 (59842) Diagnoses Hydronephrosis N13.30 Renal cyst N28.1
== END 2023-12-24 08:39 | disposition home or self-care (01) ==
PROVIDERS: PCP Internal Medicine Medical Oncology; Visit Provider Nurse Practitioner Family
DX: N13.30 Unspecified hydronephrosis (principal); N28.1 Cyst of kidney, acquired; Z13.9 Encounter for screening, unspecified
CPT/HCPCS: 99203

== ENCOUNTER → 2023-12-24 07:57 | Outpatient (BNVA) | payer MEDICARE, SELFPAY | PROVIDERS: PCP Internal Medicine Medical Oncology; Visit Provider Nurse Practitioner Family | DX: N13.30 Unspecified hydronephrosis (principal); N28.1 Cyst of kidney, acquired | CPT/HCPCS: 81003; 99202 ==

== ENCOUNTER 2024-01-01 11:17 | Outpatient (AMB) | payer MEDICARE, SELFPAY ==
--- NOTE | 2024-01-01 11:18 | A.OFFVIS_ITS ---
Vital Signs 01/01/24 11:19 Height 6 ft Weight 199 lb 2 oz BMI 27.0 BP 92/50 L Blood Pressure Location Lt brachial Position Sitting Pulse 44 L Pulse Source Pulse Oximeter Pulse Oximetry (%) 97 Oxygen Delivery Method Room Air Intake Visit Reasons: Pre Op/Femoral Popliteal Bypass Graft (Dr. Knott) Allergies No Known Allergies Allergy (Verified 01/01/24 13:15) HPI HPI Pre Op/Femoral Popliteal Bypass Graft (Dr. Knott): Details: Zan is a pleasant 63-year-old male, current 1/2 ppd smoker with 75 pack year history, with underlying COPD, peripheral vascular disease and atrial fibrillation on ASA 81. 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 He continues to report dyspnea on exertion and wheezing, using albuterol MDI QD. He currently denies cough. Since the last visit, he restarted smoking and is currently smoking 1/2 ppd. He was started on Chantix however this has been ineffective. He did note that his cravings were better controlled with NRT and has this at home. [facility] Medical History Peripheral arterial disease Bakers cyst Nicotine dependence, cigarettes, uncomplicated Complex regional pain syndrome i of right lower limb Arthritis BPH (benign prostatic hyperplasia) Elevated cholesterol S/P angiogram of extremity (07/18/23) Atrial fibrillation History of Palmer's esophagus Splenic vein thrombosis History of femoral angiogram GERD (gastroesophageal reflux disease) COPD (chronic obstructive pulmonary disease) Surgical History Hx of oral surgery Hx of tracheostomy History of esophagogastroduodenoscopy (EGD) H/O colonoscopy Social History Household Members: None Housing: Apartment Are you a primary disabilities caregiver to a significant other at home: No Do you presently have visiting nurse or other home services: No Patient Tobacco Use Status: Former Tobacco user Tobacco use type: Cigarette Cigarette Packs Per Day: 0.5 Cigarettes Per Day: 10 Years Smoked: 41 e-Cigarette/Vaping Use: Former Use Substance Use Type: Marijuana service: No Review of Systems Const Denies chills, Denies excessive sweating, Denies fever(s), Denies headache(s) and Denies night sweats Eyes Denies dry eyes, Denies irritation and Denies itchy eyes ENT Reports Normal hearing present, Denies headache(s), Denies nasal congestion, Denies nasal discharge, Denies post nasal drip and Denies sore throat Card Denies chest pain, Denies chest pain at rest, Denies chest pain with activity, Denies claudication, Denies leg edema, Reports dyspnea on exertion, Denies orthopnea and Denies paroxysmal nocturnal dyspnea Resp Denies chest congestion, Denies cough, Denies excessive phlegm production, Denies pain on inspiration, Denies pain with cough, Reports dyspnea on exertion, Denies stridor and Reports wheezing Musc Denies myalgias Neuro Reports Normal hearing present and Denies headache(s) Endo Denies excessive sweating Matt/Lymph Denies lymphadenopathy Aller/Immun Denies itchy eyes, Denies seasonal rhinorrhea and Reports wheezing Physical Exam Vital Signs: Last Vital Signs Pulse 44 L 01/01/24 11:19 BP 92/50 L 01/01/24 11:19 Pulse Ox 97 01/01/24 11:19 Oxygen Delivery Method Room Air 01/01/24 11:19 BMI result Body Mass Index 27.0 Const General: cooperative, healthy appearing, comfortable, no acute distress, well developed and alert Nutritional Appearance: obese Orientation/consciousness: patient oriented x3 Limitations: no limitations HEENT Head: Yes normal to inspection, Yes normocephalic and Yes atraumatic Ears: hearing grossly normal bilaterally and external ears normal Eyes General: appearance normal, both eyes and all related structures Eyelids: Yes eyelids normal Sclerae: sclerae normal EOM: EOMs intact bilaterally Neck Neck: Yes normal visual inspection and Yes no lymphadenopathy Lymphatic: no lymphadenopathy noted Chest Chest palpation & inspection: normal inspection of the chest Resp Effort & Inspection: normal respiratory effort, able to speak in complete sentences, no audible wheezes, no cough, no stridor, not tachypneic, no tripod positioning and no use of accessory muscles Auscultation: diminished lung sounds Cardio Jugular venous distension: no JVD Rate: regular rate Rhythm: regular rhythm Skin Other: warm, dry General skin exam: no rashes or lesions noted Neuro General: patient oriented x3 Cranial nerves: Yes Normal hearing present Cognition (Neuro): normal cognition Gait exam (Neuro): Normal gait present Extrem General: Yes normal to inspection, Yes capillary refill normal, Yes no clubbing, cyanosis or edema and Yes no pedal edema Psych Appearance: grossly normal and well kempt Speech and movement: Normal speech and movement present and Clear speech present Affect: normal affect Attitude: cooperative Thought process: Normal thought process present Thought content: Normal thought content present Insight: Good insight present (Psych) Judgement: Good judgement present (Psych) Assessment & Plan Assessment & Plan (1) COPD (chronic obstructive pulmonary disease): Code(s): J44.9 - Chronic obstructive pulmonary disease, unspecified Category: Medical (2) Nicotine dependence, cigarettes, uncomplicated: Code(s): F17.210 - Nicotine dependence, cigarettes, uncomplicated Category: Medical Plan Patient unable to afford Trelegy, and would likely benefit from triple therapy inhaler for COPD. Will send in Wixela and Spiriva. Will also give nebulizer for home use with DuoNeb to use PRN. We had long discussion regarding smoking cessation and patient making efforts towards this. Will reassess at next visit. Patient with low BP and HR, rechecked HR 50bpm, advised patient to increase fluid intake and reach out to cardiology to see if metoprolol dose needs adjus ting as he notes BP has been low on multiple occasions. All questions were answered and patient is in agreement of plan. Will follow-up in 6-8 weeks to assess response to medication regimen or sooner if needed. Medications: New fluticasone propion-salmeterol 500-50 mcg/dose (Wixela Inhub) 1 inh inhalation Q12H 60 ea 6RF tiotropium bromide 2.5 mcg/actuation (Spiriva Respimat) 2 puffs inhalation DAILY 4 grams 6RF ipratropium-albuterol 0.5 mg-3 mg(2.5 mg base)/3 mL 3 mL inhalation BID PRN 180 mL 0RF wheezing Discontinued zesppsygvtk-agawwmynt-zgdqmzgb 200-62.5-25 mcg (Trelegy Ellipta) Discontinued Reason: Insurance Denied 1 inh inhalation DAILY 60 ea 6RF Coding Level of Care Code Est Pt Level 4 (45439) Diagnoses COPD (chronic obstructive pulmonary disease) J44.9 Nicotine dependence, cigarettes, uncomplicated F17.210
[2024-01-01 11:19] VITALS: BP 92/50; PULSE 44; O2SAT 97; BMI 27.0
== END 2024-01-01 12:01 | disposition home or self-care (01) ==
LOC: HO.HPSW 11:17
PROVIDERS: PCP Internal Medicine Medical Oncology; Visit Provider Nurse Practitioner Family
DX: J44.9 Chronic obstructive pulmonary disease, unspecified (principal); F17.210 Nicotine dependence, cigarettes, uncomplicated
CPT/HCPCS: 99214

== ENCOUNTER → 2024-01-01 11:17 | Outpatient (BNVA) | payer MEDICARE, SELFPAY | PROVIDERS: PCP Internal Medicine Medical Oncology; Visit Provider Nurse Practitioner Family | DX: Z01.811 Encounter for preprocedural respiratory examination (principal); J44.9 Chronic obstructive pulmonary disease, unspecified; I73.9 Peripheral vascular disease, unspecified; I48.91 Unspecified atrial fibrillation; F17.210 Nicotine dependence, cigarettes, uncomplicated | CPT/HCPCS: 99212 ==

== ENCOUNTER 2024-01-01 12:35 | Outpatient (REF) | payer MEDICARE, SELFPAY | END 2024-01-01 12:36 | disposition home or self-care (01) | LOC: HO.LAB 12:35 | PROVIDERS: PCP Internal Medicine Medical Oncology; Visit Provider Nurse Practitioner Family | DX: Z53.9 Procedure and treatment not carried out, unspecified reason (principal) | CPT/HCPCS: 36415 ==

== ENCOUNTER 2024-01-01 13:03 | Outpatient (AMB) | payer MEDICARE, SELFPAY ==
--- NOTE | 2024-01-01 13:12 | MHC.OFFVIS ---
Vital Signs 01/01/24 13:13 Height 6 ft Weight 199 lb BMI 27.0 BP 100/50 L Blood Pressure Location Lt brachial Position Sitting Pulse 90 Pulse Source Pulse Oximeter Intake Visit Reasons: 2w wound check follow up Intake Note: followup Right LE revascularization w/ Dr. Segundo 12/02/23. Pt states that he is starting to get pain in his Right LE again like before. States he was seen at another doctors office today and BP and pulse was low. Also states [facility] comes 1 time per week. Pt states other incisions are closed as far as he is aware and he does change his great toe bandage QOD. His foot is very red. Pt complains on numbness and pain Accompanied by: Self / Same As Patient Allergies No Known Allergies Allergy (Verified 01/01/24 13:15) HPI HPI 2w wound check follow up: Details: Zan is coming in today for 2 week checkup he is status post revascularization due to a failed SFA to below-knee pop bypass with ipsilateral GSV with Dr. Powers at [facility] on December 01. He was doing well 2 weeks ago with increased circulation to his legs and decreased pain as well as swelling. He states over the last 3 days he has noticed his right foot is very red and cool and he is having some increased pain especially at night. He states he is very concerned about the changes and it seems like it is the same way it was prior to the surgery. He has no concerns about the groin incision. He states he has been having issues with his blood pressure is well; he was started on metoprolol and states his blood pressures have been in the 90s since starting it. He stopped the medication the other day and his blood pressure went up to 138 and VNA recommended that he restart it. He states earlier today at pulmonology his blood pressure was 90s over 50s in his heart rate was in the 40s. [facility] Medical History Peripheral arterial disease Bakers cyst Nicotine dependence, cigarettes, uncomplicated Complex regional pain syndrome i of right lower limb Arthritis BPH (benign prostatic hyperplasia) Elevated cholesterol S/P angiogram of extremity (07/18/23) Atrial fibrillation History of Palmer's esophagus Splenic vein thrombosis History of femoral angiogram GERD (gastroesophageal reflux disease) COPD (chronic obstructive pulmonary disease) Surgical History Hx of oral surgery Hx of tracheostomy History of esophagogastroduodenoscopy (EGD) H/O colonoscopy Social History Household Members: None Housing: Apartment Are you a primary palliative care coordinator to a significant other at home: No Do you presently have visiting nurse or other home services: No Patient Tobacco Use Status: Former Tobacco user Tobacco use type: Cigarette Cigarette Packs Per Day: 0.5 Cigarettes Per Day: 10 Years Smoked: 41 e-Cigarette/Vaping Use: Former Use Substance Use Type: Marijuana service: No Review of Systems Const Reports as per HPI and Denies weakness ENT Reports Normal hearing present and Denies dizziness Card Reports as per HPI, Denies chest pain, Denies chest pain at rest, Denies chest pain with activity, Denies dyspnea and Denies dyspnea on exertion Resp Reports as per HPI, Denies cough, Denies dyspnea and Denies dyspnea on exertion GI Reports as per HPI, Denies abdominal pain, Denies nausea and Denies vomiting Musc Denies numbness Skin/Breast Reports as per HPI, Denies erythema and Denies wounds Neuro Reports Normal hearing present, Denies dizziness, Denies numbness, Denies Sensory deficit (Neuro) and Denies weakness Psych Reports no additional complaints Endo Reports no additional complaints Physical Exam Vital Signs: Last Vital Signs Pulse 90 01/01/24 13:13 BP 100/50 L 01/01/24 13:13 BMI result Body Mass Index 27.0 Const General: healthy appearing and no acute distress Orientation/consciousness: patient oriented x3 HEENT Head: Yes normal to inspection Ears: hearing grossly normal bilaterally Mouth: Normal oral and palatal mucosa present Resp Effort & Inspection: normal respiratory effort and able to speak in complete sentences Auscultation: clear to auscultation bilaterally Cardio Jugular venous distension: no JVD Rate: regular rate Rhythm: regular rhythm Heart sounds: S1 normal heart sound present and S2 normal heart sound present Bruits: no abdominal aortic bruits, no carotid bruits, no femoral bruits and no renal bruits Peripheral pulses: Peripheral pulses 2+ throughout GI Inspection: Yes normal to inspection Palpation (GI): No Abdominal aortic bruit present Skin General skin exam: no rashes or lesions noted Wounds: no wounds Hair: normal Neuro General: patient oriented x3 Cranial nerves: Yes Normal hearing present Cognition (Neuro): normal cognition Gait exam (Neuro): Normal gait present Motor exam (neuro): 5/5 motor strength present throughout Sensory Exam: No Sensory deficit (Neuro) Extrem Other: Right foot: Very deep erythematous from the tip of the toes to mid foot. Cap refill over 5-6 seconds. Foot feels very cool to the touch. Faint but palpable DP pulses. Wound at base of R1 toe is scabbing over with dry eschar, some scab removed and wound bed is very pale color. General: Yes normal to inspection, Yes full ROM, Yes capillary refill normal and Yes normal gait Assessment & Plan Assessment & Plan (1) Peripheral arterial disease: Code(s): I73.9 - Peripheral vascular disease, unspecified Category: Medical Plan: Zan is presenting for a 2 week follow up status post revascularization due to a failed SFA to below-knee pop bypass with ipsilateral GSV done on December 01. He was doing well 2 weeks ago last time we saw him. The last few days he has had increased pain, swelling, and increased redness to his right foot. He has significant concerns; he states this is how his foot was prior to the surgery. He states he is having increased pain with walking and the pain is increased at night. He states he has been elevating it with little relief. We have ordered a stat ultrasound arterial duplex of the right lower extremity. We dressed his foot with Xeroform over the wound, 4 x 4, and Kerlix. We will follow up with him when we get the ultrasound results. We will also be reaching out to Dr. Powers at [facility]. Orders: Orders US arterial duplex LE RT Today I73.9 - Peripheral vascular disease, unspecified, Z98.890 - Other specified postprocedural states Coding Level of Care Code Est Pt Level 4 (17770) Diagnoses Peripheral arterial disease I73.9 Comment acute change of status
[2024-01-01 13:13] VITALS: BP 100/50; PULSE 90; BMI 27.0
== END 2024-01-01 13:36 | disposition home or self-care (01) ==
LOC: HO.HVS 13:04
PROVIDERS: PCP Internal Medicine Medical Oncology; Visit Provider Physician Assistant Surgical
DX: I73.9 Peripheral vascular disease, unspecified (principal)
CPT/HCPCS: 99214

== ENCOUNTER 2024-01-01 13:46 | Outpatient (REF) | payer MEDICARE, SELFPAY ==
--- NOTE | ~2024-01-01 | US_ITS ---
EXAMINATION: US NONINVASIVE ASSESSMENT OF THE RIGHT LOWER EXTREMITY WITH ARTERIAL DUPLEX AND ANKLE BRACHIAL INDICES (ABIS) CLINICAL INFORMATION: Peripheral vascular disease, history of right lower extremity bypass COMPARISON: 11/01/2023 TECHNIQUE: Duplex Doppler techniques with waveform analysis and measurement of velocities in the common femoral, profunda femoris, superficial femoral, popliteal and tibial arteries were performed. FINDINGS: RIGHT LOWER EXTREMITY DUPLEX ULTRASOUND: Common femoral artery: 103 cm/s. Diastolic flow reversal: Biphasic There is an old bypass graft off the common femoral artery extending through the thigh into the calf which is occluded Profunda femoris artery: Not visualized Superficial femoral artery (proximal): 91.7 cm/s. Diastolic flow reversal: Monophasic Superficial femoral artery (mid): A 4.7 cm/s. Diastolic flow reversal: Monophasic Superficial femoral artery (distal): Stent is present which is patent on color Doppler , previously occluded Proximal stent: 82.3 cm/s, monophasic Mid stent: 95.6 cm/s, monophasic Distal stent: 110 cm/s, monophasic Popliteal artery: 32.9 cm/s cm/s Diastolic flow reversal: Monophasic Posterior tibial artery: Occluded Anterior tibial artery: 21.1 cm/s Diastolic flow reversal: Monophasic Note is made of a complex fluid collection within the proximal calf most consistent with underlying hematoma measuring 3.3 x 4.9 x 2.0 cm US/US arterial duplex LE RT IMPRESSION: 1. Patent stent in the distal superficial femoral artery. 2. Occluded bypass graft in the right lower extremity. 3. Occlusive changes in the below-knee runoff vessels 4. Complex fluid collection in the proximal calf consistent with a hematoma. Electronically signed by: Coleman Chaidez MD 01/23/2024 01:03 PM EST
== END 2024-01-01 13:47 | disposition home or self-care (01) ==
LOC: HO.US 13:46
PROVIDERS: PCP Internal Medicine Medical Oncology; Visit Provider Surgery Vascular Surgery
DX: I73.9 Peripheral vascular disease, unspecified (principal); Z98.890 Other specified postprocedural states
CPT/HCPCS: 93926

== ENCOUNTER 2024-01-03 14:59 | Outpatient (AMB) | payer MEDICARE, SELFPAY ==
--- NOTE | 2024-01-03 15:05 | A.OFFVIS_ITS ---
Intake Visit Reasons: follow up Urgent Art US 01/01/24 Intake Note: Patient presents for follow up urgent arterial 12/31. Allergies No Known Allergies Allergy (Verified 01/03/24 15:05) HPI HPI follow up Urgent Art US 01/01/24: Details: Very pleasant 63-year-old gentleman presents for follow-up regarding his right extremity. He had undergone a bypass by me which had subsequently occluded. He was then sent to [facility] to Dr. Rhett Segundo where he underwent a fem tibial bypass. He returned to the office on the complaining of pain. He underwent an urgent ultrasound which demonstrated it was totally occluded. Also of note he has a nonhealing dorsum of foot ulcer. ON LICENSE OF [facility] Medical History Peripheral arterial disease Bakers cyst Nicotine dependence, cigarettes, uncomplicated Complex regional pain syndrome i of right lower limb Arthritis BPH (benign prostatic hyperplasia) Elevated cholesterol S/P angiogram of extremity (07/18/23) Atrial fibrillation History of Palmer's esophagus Splenic vein thrombosis History of femoral angiogram GERD (gastroesophageal reflux disease) COPD (chronic obstructive pulmonary disease) Surgical History Hx of oral surgery Hx of tracheostomy History of esophagogastroduodenoscopy (EGD) H/O colonoscopy Social History Household Members: None Housing: Apartment Are you a primary care information associate to a significant other at home: No Do you presently have visiting nurse or other home services: No Patient Tobacco Use Status: Former Tobacco user Tobacco use type: Cigarette Cigarette Packs Per Day: 0.5 Cigarettes Per Day: 10 Years Smoked: 41 e-Cigarette/Vaping Use: Former Use Substance Use Type: Marijuana service: No Review of Systems Const All systems reviewed & are unremarkable except as noted in HPI and below Reports no additional complaints ENT Reports Normal hearing present Card Denies chest pain, Denies chest pain at rest, Denies chest pain with activity and Denies pedal edema Resp Denies cough GI Denies abdominal pain Musc Denies abnormal gait, Denies muscle cramps and Denies radiating pain into limb Skin/Breast Denies skin ulcer and Denies wounds Neuro Reports Normal hearing present and Denies abnormal gait Psych Reports no additional complaints Physical Exam Const General: cooperative, healthy appearing and comfortable Orientation/consciousness: oriented to person, oriented to place and oriented to time HEENT Head: Yes normal to inspection Neck Neck: Yes normal visual inspection Carotids: no bruits Chest Chest palpation & inspection: normal inspection of the chest Resp Effort & Inspection: normal respiratory effort and able to speak in complete sentences Auscultation: clear to auscultation bilaterally, no crackles, no rales, no rhonchi and no wheezes Cardio Other: Right DP signals Rate: regular rate Rhythm: regular rhythm Heart sounds: S1 normal heart sound present and S2 normal heart sound present Peripheral pulses: Peripheral pulses 2+ throughout GI Inspection: Yes normal to inspection Skin Wounds: no wounds Hair: normal Neuro General: oriented to person, oriented to place and oriented to time Cranial nerves: Yes CN's II-XII intact bilaterally and Yes Normal hearing present Cognition (Neuro): normal cognition Motor exam (neuro): 5/5 motor strength present throughout Extrem Other: venous exam: No significant superficial varicosities or spider telangiectasias, minimal edema General: No clubbing, No cyanosis and No edema Psych Appearance: grossly normal Mental Status: mental status grossly normal Speech and movement: Normal speech and movement present Assessment & Plan Assessment & Plan (1) Peripheral arterial disease: Code(s): I73.9 - Peripheral vascular disease, unspecified Category: Medical Plan: In short patient has an occluded bypass graft. I did discuss the options of returning to [place] or being treated locally. He has elected to stay locally. I have discussed the pathophysiology of peripheral vascular disease with the patient. I have also discussed risk factor modification. I have reviewed the patient's arterial testing which reveals occluded bypass graft. the patient would benefit from a right leg endovascular peripheral angiogram with possible angioplasty, stent, and/or atherectomy and possible thrombolysis. This has been discussed in detail with the patient along with risks, benefits, and complications. This includes but is not limited to bleeding, infection, heart attack, need for emergent surgical repair, limb ischemia, blood vessel damage, bleeding, puncture, kidney injury, bruising, allergic reaction, and skin reaction. The patient demonstrates a clear understanding. We will schedule for the next appropriate time. Thank you for allowing us to assist in this patient's care. Coding Level of Care Code Est Pt Level 4 (09492) Complex EM visit Add On G2211 Diagnoses Peripheral arterial disease I73.9
== END 2024-01-03 15:33 | disposition home or self-care (01) ==
LOC: HO.HVS 15:00
PROVIDERS: PCP Internal Medicine Medical Oncology; Visit Provider Surgery Vascular Surgery
DX: I73.9 Peripheral vascular disease, unspecified (principal)
CPT/HCPCS: 99214; G2211

== ENCOUNTER → 2024-01-03 14:59 | Outpatient (BNVA) | payer MEDICARE, SELFPAY | PROVIDERS: PCP Internal Medicine Medical Oncology; Visit Provider Surgery Vascular Surgery | DX: I73.9 Peripheral vascular disease, unspecified (principal) | CPT/HCPCS: 99212 ==

== ENCOUNTER 2024-01-07 10:38 | Outpatient (BNV) | payer MEDICARE, SELFPAY | END 2024-01-10 09:27 | PROVIDERS: Admitting Provider Internal Medicine Pulmonary Disease; PCP Internal Medicine Medical Oncology; Visit Provider Internal Medicine Cardiovascular Disease | DX: I49.1 Atrial premature depolarization (principal); R94.31 Abnormal electrocardiogram [ECG] [EKG] | CPT/HCPCS: 93010 ==

== ENCOUNTER 2024-01-07 10:38 | Outpatient (BNV) | payer MEDICARE, SELFPAY | END 2024-01-11 19:23 | PROVIDERS: Admitting Provider Internal Medicine Pulmonary Disease; PCP Internal Medicine Medical Oncology; Visit Provider Internal Medicine Cardiovascular Disease | DX: R07.9 Chest pain, unspecified (principal); R00.0 Tachycardia, unspecified; R94.31 Abnormal electrocardiogram [ECG] [EKG] | CPT/HCPCS: 93010 ==

== ENCOUNTER 2024-01-07 10:38 | Inpatient (IN) | payer MEDICARE, SELFPAY ==
[2024-01-07] VITALS (18 sets, daily range): BP systolic 104–153; BP diastolic 51–90; PULSE 50–94; RESP 12–19; TEMP 36.7–37; O2SAT 95–100; BMI 27.1; BMI 27.8
--- NOTE | ~2024-01-07 | CT_ITS ---
EXAMINATION: CT ABDOMEN AND PELVIS WITH CONTRAST CLINICAL INFORMATION: Shock after procedure COMPARISON: CT angiogram aorta and runoff dated November 09, 2023 TECHNIQUE: Multidetector volumetric images were obtained from the superior aspect of the liver through the pubic symphysis following administration 85 mL of Omnipaque 350 intravenous contrast without reported immediate complications. Sagittal and coronal reformatted images were obtained on the technologist's workstation. Oral contrast: No This CT examination was performed using dose optimization techniques as appropriate, variously including the following: *Automated exposure control *Adjustment of mA and/or kV according to patient size (this includes techniques or standardized protocols for targeted exams where dose is matched to indication/reason for exam; i.e. extremities or head) *Use of iterative reconstruction technique DLP: 768 mGy-cm FINDINGS: There is a large volume, 27 x 11 x 12 cm heterogeneous mixed isodensity extending from the left inguinal canal to the left upper retroperitoneum anterior to the left psoas iliac muscle displacing the left kidney anterior medially and displacing the peritoneal contents medially into the right. There is dilatation of the left pelvicalyceal system and the proximal left ureter with fluid fluid levels in the pelvicalyceal system. There is a hyperdensity within the left inguinal scrotal canal. Tiny subcutaneous emphysema beneath the skin of the left inguinal region. LUNG BASES: Patchy groundglass, atelectasis in the lung bases. LIVER, GALLBLADDER, AND BILIARY TREE: Liver measures 15 cm. No focal mass. Tortuous enhancing vessels in the perihepatic region with the normal patency of the right portal vein and the confluence. I do not see patency of the left Main portal vein branch. Hepatic veins and intrahepatic portion of the IVC are patent. No pericholecystic fluid collection or gallbladder wall thickening. Common bile duct measures 5 mm. PANCREAS: No focal pancreatic mass. No main pancreatic ductal dilatation. No peripancreatic fluid collection. SPLEEN: Measures 8 cm. No focal mass. ADRENAL GLANDS: No nodular lesions. KIDNEYS AND URETERS: Right kidney demonstrates no hydronephrosis or gross mass. Left kidney has been described with dilatation of the left pelvicalyceal system extrarenal pelvis and displaced left ureter in the anterior medial retroperitoneal compartment BLADDER: Fluid-filled. GASTROINTESTINAL TRACT: No intestinal obstruction pattern. No pneumoperitoneum. No ascites. No pneumatosis intestinalis Appendix is normal. ABDOMINAL WALL: Fat-containing umbilical hernia and periumbilical hernia. Hyperdense fluid within the left inguinal scrotal region. LYMPH NODES: No gross lymphadenopathy. VASCULAR: Vascular abnormality in the left inguinal region involving the vein and arteries most likely the left common femoral vein. Intraluminal filling defects within the right superficial femoral vein. There are likely [place] bypass femoral, bilaterally.. OSSEOUS STRUCTURES: Multilevel thoracolumbar spondylosis without acute fracture or listhesis. Degenerative changes in the sacroiliac joints. CT/CT abdomen pelvis w IV con IMPRESSION: Large volume retroperitoneal hemorrhage/hematoma causing extrinsic compression upon the left ureter and hydroureteronephrosis. Vascular injury/pseudoaneurysm versus fistula in the left common femoral vessels should be considered. Concerning emboli/clot right common femoral arteries. Discussed with the requesting physician Dr.Andrey Caes at 12:03 PM Fleischner guidelines were followed. Electronically signed by: Theo Stern MD 01/08/2024 12:21 PM [facility]
--- NOTE | ~2024-01-07 | CT_ITS ---
EXAMINATION: CT ABDOMEN AND PELVIS WITH CONTRAST CLINICAL INFORMATION: Abdominal pain. Question bleed. COMPARISON: Most recent CT abdomen/pelvis dated 01/08/2024. TECHNIQUE: Multidetector volumetric images were obtained from the superior aspect of the liver through the pubic symphysis following administration 85 mL of Omnipaque 350 intravenous contrast. Sagittal and coronal reformatted images were obtained on the technologist's workstation. Oral contrast: No This CT examination was performed using dose optimization techniques as appropriate, variously including the following: *Automated exposure control *Adjustment of mA and/or kV according to patient size (this includes techniques or standardized protocols for targeted exams where dose is matched to indication/reason for exam; i.e. extremities or head) *Use of iterative reconstruction technique DLP: 1106 mGy-cm. FINDINGS: LUNG BASES: Small left-sided pleural effusion with adjacent atelectasis, new when compared to the prior examination. LIVER, GALLBLADDER, AND BILIARY TREE: The liver is normal in size, shape, and attenuation. No focal hepatic lesion or biliary ductal dilatation is present. The gallbladder is unremarkable with no evidence of radiopaque gallstones, gallbladder wall thickening, or obvious pericholecystic inflammatory changes. PANCREAS: Unremarkable. SPLEEN: Unremarkable. ADRENAL GLANDS: Unremarkable. KIDNEYS AND URETERS: There is a large, increasing left renal subcapsular hematoma with layering hyperdensity now measuring approximately 8.5 x 9.6 x 17.5 cm (AP x ML x CC) (previously 3.0 x 4.4 x 4.4 cm). There is severe mass effect on the left renal parenchyma with severe left-sided hydronephrosis and proximal hydroureter. There is hyperdensity within the severely dilated collecting system, likely representing blood products. The distal ureter is nondilated. Normal right renal shape and parenchymal density. No right renal parenchymal lesion. No right-sided hydronephrosis or nephrolithiasis. No renal or ureteral stone. BLADDER: Nondistended with hyperdensity in the lumen, consistent with blood or blood products. GASTROINTESTINAL TRACT: No small or large bowel obstruction. No bowel wall thickening or inflammatory change. Appendix not identified. PERITONEAL CAVITY: Redemonstration of a large left retroperitoneal hematoma which extends from the left angle region proximally to the level of the spleen. This appears similar in size when compared to the prior examination. Increasing abdominal ascites. No intra-abdominal free air. ABDOMINAL WALL: No significant hernia is appreciated. LYMPH NODES: No significant lymphadenopathy. VASCULAR: No abdominal aortic dilatation or dissection. Scattered atherosclerotic calcifications. Surgical clips in the left angle region. PELVIC VISCERA: Prostate calcifications. OSSEOUS STRUCTURES: No acute osseous abnormality. CT/CT abdomen pelvis w IV con IMPRESSION: 1. Large left renal subcapsular hematoma, increased in size when compared to the prior examination, now measuring up to 17.5 cm (previously 3.0 cm). Severe mass effect on the left renal parenchyma with severe left-sided hydronephrosis and proximal hydroureter. Hyperdensity within the severely dilated collecting system, likely representing blood products. The distal ureter is nondilated. 2. Redemonstration of a large left retroperitoneal hematoma, similar in size when compared to the prior examination. 3. Increasing abdominal ascites. No intra-abdominal free air. 4. Small left-sided pleural effusion with adjacent atelectasis, new when compared to the prior examination. Fleischner guidelines were followed. This critical result was discussed with Som Vela NP at 9:44 PM on 01/10/2024 and it was ascertained that the content and urgency of the report was understood at the time of direct communication. Electronically signed by: Jarret Ferrara MD 01/10/2024 10:00 PM [facility]
[2024-01-07 06:53] LABS: MANUAL DIFF FLAG NO
[2024-01-07 06:55] LABS: Basophils Absolute Auto 0.1 X10*3/uL (0.0-0.2); Basophils Percent Auto 0.7 % (0-2); Eosinophils Absolute Auto 0.4 X10*3/uL (0.0-0.4); Eosinophils Percent Auto 4.9 % (0-4); Hemoglobin 13.8 g/dl (14.0-18.0); Imm Gran Abs Auto 0.03 X10*3/uL (0.00-0.03); Imm Gran Pct Auto 0.4 % (0.0-0.4); Lymphocytes Absolute Auto 1.7 X10*3/uL (1.2-4.9); Mean Corpuscular HGB Conc 32.9 g/dl (31.0-36.0); Mean Corpuscular Volume 97.4 fL (80.0-98.0); Mean Platelet Volume 9.5 fL (9.4-12.4); Monocytes Absolute Auto 0.8 X10*3/uL (0.1-1.2); Monocytes Percent Auto 9.3 % (2-11); Neutrophils Absolute Auto 5.2 x10*3/uL (2.0-8.3); Neutrophils Percent Auto 63.7 % (45-73); Platelet Count 261 X10*3/uL (160-400); Red Blood Count 4.31 X10*6/uL (4.60-5.80); Red Cell Distribution Width 12.8 % (11.0-16.0); White Blood Count 8.2 X10*3/uL (4.8-10.8)
[2024-01-07 07:09] LABS: Blood Urea Nitrogen 16 mg/dL (9-16); Creatinine Clr Calc Pharmacy 99.7; Estimated Glomerular Filt Rate > 60
[2024-01-07] MEDS: Heparin Sodium,Porcine/1/2NS 25,000 UNIT/250 ML IV.SOLN 5 UNIT INTRAARTCO (10:09)
[2024-01-07] MEDS: Alteplase Cath Clear 5 MG in 0.9 % Sodium Chloride 495 ML 50 MG INTRAPLEUR ×2 (10:09→20:25)
[2024-01-07] MEDS: 0.9 % Sodium Chloride 1,000 ML 100 ML IVCONT ×2 (10:52→16:47)
[2024-01-07] MEDS: Morphine Sulfate 4 MG/ML CARTRIDGE IVPUSH ×5 (10:57→23:55)
[2024-01-07] MEDS: oxyCODONE HCl Immed Release 5 MG TABLET 10 MG PO ×3 (11:18→22:43)
--- NOTE | 2024-01-07 11:21 | PM.CCHP ---
History of Present Illness Date of Service: 01/07/24 Chief Complaint: Occluded femoral graft 63-year-old gentleman with underlying COPD, peripheral arterial disease, splenic vein thrombosis, AFib, BPH with prior right-sided popliteal bypasses with occlusion, now status post placement of intra-arterial tPA catheter being monitored in the intensive care unit. Review of Systems Constitutional: Constitutional: Denies daytime sleepiness, Denies excessive sweating, Denies fatigue, Denies fever(s), Denies lethargy, Denies malaise, Denies night sweats, Denies snoring and Denies weight loss Eyes: Eyes: Denies blurry vision and Denies itchy eyes ENT: Denies nasal congestion, Denies post nasal drip, Denies sinus pain, Denies sinus pressure and Denies other ( Thrush) Cardiovascular: Cardiovascular: Denies chest pain, Denies pedal edema, Denies dyspnea, Denies orthopnea and Denies paroxysmal nocturnal dyspnea Respiratory: Respiratory: Denies cough, Denies hemoptysis, Denies excessive phlegm production, Denies dyspnea, Denies snoring and Denies wheezing Gastrointestinal: Gastrointestinal: Denies abdominal pain and Denies heartburn Musculoskeletal: Musculoskeletal: Denies myalgias, Denies arthralgias and Denies joint swelling Integumentary/Breasts: Skin/Breast: Denies rash Neurologic: Denies memory loss and Denies seizure-like activity Psychiatric: Psychiatric: Denies abnormal sleep pattern, Denies anxiety and Denies memory loss Endocrine: Endocrine: Denies excessive sweating, Denies fatigue and Denies heat intolerance Hematologic/Lymphatic: Hematologic/Lymphatic: Denies easy bruising Allergic/Immunologic: Allergic/Immunologic: Denies itchy eyes, Denies seasonal rhinorrhea and Denies wheezing PMFSH Past Medical History Medical History Peripheral arterial disease Bakers cyst Nicotine dependence, cigarettes, uncomplicated Complex regional pain syndrome i of right lower limb Arthritis BPH (benign prostatic hyperplasia) Elevated cholesterol S/P angiogram of extremity (07/18/23) Atrial fibrillation History of Palmer's esophagus Splenic vein thrombosis History of femoral angiogram GERD (gastroesophageal reflux disease) COPD (chronic obstructive pulmonary disease) Surgical History Surgical History Hx of oral surgery Hx of tracheostomy History of esophagogastroduodenoscopy (EGD) H/O colonoscopy Social History Social History Household Members: None Housing: Apartment Are you a primary hearing care professional to a significant other at home: No Do you presently have visiting nurse or other home services: No Patient Tobacco Use Status: Current everyday Tobacco user Tobacco use type: Cigarette Cigarette Packs Per Day: 0.5 Cigarettes Per Day: 10 Years Smoked: 41 e-Cigarette/Vaping Use: Former Use Substance Use Type: Marijuana Have you been hit, kicked, punched, or otherwise hurt by someone within the past year? If so, by whom?: No Are you DNR?: No Advance Directives: No Advance Directives Information Provided: Yes Nutrition Risks: No Nutritional Risk service: No Meds Allergies Allergy/AdvReac Type Severity Reaction Status Date / Time No Known Allergies Allergy Verified 01/03/24 15:05 Active Medications: Current Medications Acetaminophen (Acetaminophen 325 Mg Tablet) 650 mg PO Q6H PRN PRN Reason: Pain, Mild (Pain Scale 1-3) Atorvastatin Calcium (Atorvastatin Calcium 10 Mg Tablet) 10 mg PO DAILY [facility] Sodium Chloride (Ns) 1,000 mls @ 100 mls/hr IVCONT .Q10H [facility] Last Admin: 01/07/24 10:52 Dose: 100 mls/hr Alteplase, Recombinant 5 mg/ (Sodium Chloride) 500 mls @ 50 mls/hr INTRAPLEUR .Q10H [facility] Stop: 01/07/24 19:29 Heparin Sodium/Sodium Chloride (Heparin Sodium,Porcine/1/2ns) 25,000 unit in 250 mls @ 5 mls/hr INTRAARTCO .Q24H [facility] Morphine Sulfate (Morphine Sulfate 4 Mg/Ml Cartridge) 4 mg IVPUSH Q2H PRN; Protocol PRN Reason: Pain, Severe (Pain Scale 7-10) Last Admin: 01/07/24 10:57 Dose: 4 mg Oxycodone HCl (Oxycodone Hcl Immed Release 5 Mg Tablet) 10 mg PO Q4H PRN PRN Reason: Pain, Moderate(Pain Scale 4-6) Last Admin: 01/07/24 11:18 Dose: 10 mg Home Medications ?Medication ?Instructions ?Recorded ?Confirmed ?Last Taken ?Type aspirin 81 mg tablet,delayed 81 mg PO DAILY 01/12/20 12/24/23 01/07/24 History release (Luis Low Dose Aspirin) pantoprazole 40 mg tablet,delayed 80 mg PO DAILY@0630 01/12/20 12/24/23 01/07/24 History release tamsulosin 0.4 mg capsule 0.8 mg PO DAILY 01/12/20 12/24/23 01/07/24 History atorvastatin 10 mg tablet 10 mg PO DAILY 05/04/20 12/24/23 01/07/24 History ascorbic acid (vitamin C) 500 mg 500 mg PO DAILY 08/14/23 12/24/23 01/07/24 History tablet (Vitamin C) [id number] 300 mcg-K 60 1 tab PO DAILY 10/02/23 12/24/23 01/07/24 History mcg-lycop 600 mcg-lutein 300 mcg tablet (Centrum Silver Men) amoxicillin 875 mg-potassium 1 tab PO BID 12/17/23 12/24/23 Unknown History clavulanate 125 mg tablet apixaban 5 mg tablet (Eliquis) 5 mg PO BID 12/17/23 12/24/23 Unknown History gabapentin 400 mg capsule 800 mg PO BID 12/17/23 12/24/23 01/07/24 History metoprolol succinate 25 mg 25 mg PO DAILY 12/17/23 12/24/23 01/07/24 History tablet,extended release 24 hr oxycodone 5 mg tablet mg PO 12/17/23 12/24/23 Unknown History varenicline 0.5 mg (11)-1 mg (42) 0 ea PO 12/17/23 12/24/23 Unknown History tablets in a dose pack Physical Exam Vital Signs: Vital Signs: Last Vital Signs Temp 98.5 F 01/07/24 06:33 Pulse 58 01/07/24 11:00 Resp 17 01/07/24 11:00 BP 140/74 H 01/07/24 11:00 Pulse Ox 100 01/07/24 11:00 O2 Del Method Room Air 01/07/24 11:00 BMI result Body Mass Index 27.1 Const: General: no acute distress, alert and awake Eyes: Sclerae: sclerae normal EOM: EOMs intact bilaterally Neck: Neck: Yes no lymphadenopathy, Yes trachea midline and Yes supple Resp: Effort & Inspection: normal respiratory effort and no respiratory distress Auscultation: clear to auscultation bilaterally Cardio: Rate: regular rate Rhythm: regular rhythm Heart sounds: no gallops, no murmurs and no rubs GI: Palpation (GI): Soft to palpation and Other GI palpation findings present ( Nontender) Auscultation: normal bowel sounds Extrem: General: Yes no pedal edema, No clubbing, No cyanosis and Yes other (Left femoral access site without hematoma.) Results Labs 01/07/24 06:48 01/07/24 06:48 Labs: Laboratory Results - last 24 hr 01/07/24 06:48 MCV 97.4 MCH 32.0 MCHC 32.9 RDW 12.8 Plt Count 261 MPV 9.5 Immature Gran % (Auto) 0.4 Neut % (Auto) 63.7 Lymph % (Auto) 21.0 [place] % (Auto) 9.3 Eos % (Auto) 4.9 H Baso % (Auto) 0.7 Lymph # (Auto) 1.7 [place] # (Auto) 0.8 Eos # (Auto) 0.4 Baso # (Auto) 0.1 Abs Immat Gran (auto) 0.03 Absolute Neuts (auto) 5.2 Absolute Nucleated RBC 0.000 Nucleated RBC % (auto) 0.0 Estim Creat Clear Calc 99.7 Estimated GFR > 60 Assessment and Plan (1) Peripheral arterial disease: Status: Acute Plan Assessment: 63-year-old gentleman with underlying peripheral arterial disease now status post placement of right sided intra-arterial tPA catheter for occluded popliteal graft, being monitored in the intensive care unit Plan: Neuro: No acute issues. Cardiac: Peripheral artery disease with an occluded popliteal graft on the right, now status post placement of intra-arterial tPA catheter. Vascular surgery service care appreciated. Planned for fluoroscopy in a.m.. Underlying history of AFib. Pulmonary: No acute issues. Underlying history of COPD. Renal: No acute issues. Endo: No acute issues. GI: No acute issues. ID: No acute issues Heme/Onc: No acute issues. Psych: No acute issues. Miscellaneous: No acute issues. Prophylaxis: Per vascular surgery Diet: NPO at midnight for repeat procedure
--- NOTE | 2024-01-07 11:43 | P.OP_ITS ---
Operative Note Operative Note Date of Service: 01/07/24 Narrative: Angiogram report from [facility] Preoperative diagnosis: Atherosclerosis of right lower extremity with nonhealing ulcer Postoperative diagnosis: Same Procedure: 1. Ultrasound-guided left common femoral access 2. Aortogram with right lower extremity runoff 3. Insertion of thrombolysis catheter Surgeon:Bimal Knott M.D., FACS, RPVI Hay Stacker Operator:None Anesthesia: Local with moderate conscious sedation. Total intraservice moderate sedation time was 50 minutes. I monitored the patient's level of consciousness and physiologic status continuously throughout the procedure. Specimens:none Drains:none Estimated blood loss: Less than 10 ml Implant: None Indications: Pleasant 63-year-old gentleman who has had a history of critical limb ischemia. It undergone femoral to anterior tibial bypass at [facility] in [place]. On follow-up ultrasound it was noted to be occluded. He now presents for thrombolysis. The patient has signed the informed consent after reviewing risks, complications, benefits, and alternatives previously discussed with the patient. The patient was given the opportunity to ask any additional questions or voice any concerns. All questions were answered to the patient's satisfaction. Procedure in detail: Patient was brought to the angiography suite prior to which a time-out was called for patient identification and site verification. Bilateral groins were prepped and draped in the standard surgical fashion. Under ultrasound guidance left common femoral was punctured with micro puncture needle and wire. Subsequently a precision 5 [place] sheath was then placed. Bentson wire was advanced to the level of the aorta. 5 [place] Flush catheter was brought up and parked at the level of the renal arteries. Aortogram was then undertaken. Catheter was brought down to the level of the iliac bifurcation. Iliacs were subsequently imaged. Catheter was then brought in up and over to the right side SFA. Runoff study was then undertaken. Clearly the graft was occluded. We placed an up and over 5 [place] sheath. At this time 5000 units of systemic heparin was administered. After 5 minutes of circulation time we then advanced a Glidewire advantage with a Navicross catheter. Once in appropriate position multiple orthogonal views were undertaken. After some undertaken we were finally able to traverse the occluded graft. We advanced a [id number] the way to the level of the anterior tibial. We were able to follow this with a trail Blazer catheter and confirmed true lumen in the anterior tibial artery. Once this was accomplished we exchanged out the 5 [place] up and over sheath for a Balkin 6 [place] sheath. We then placed a 50 cm Cragg Harvey catheter starting distally at the distal anastomosis of the anterior tibial on up into the graft. Once this was accomplished the sheath was sutured into position. Through the catheter we started infusing tPA at 0.5 milligrams/hour and heparin via the sheath at 500 units an hour. Patient tolerated the procedure well and was returned to ICU with stable vitals. Interpretation of films: 1. Ultrasound demonstrates appropriate femoral access site. Vessel was patent with minimal stenosis. Needle entry was visualized. Image of ultrasound was saved. 2. Aortogram demonstrates appropriate caliber aorta. Minimal disease. Appropriate take-off of the renals. 3. Iliac images demonstrate no significant disease 4. Right Leg Common femoral artery: Patent Profundus Femoris: No significant disease Superficial femoral artery: Occludes at the popliteal Bypass graft is occluded. Completion imaging demonstrated appropriate placement of thrombolysis catheter Conclusion: 1. Occluded bypass graft of right lower extremity. Appropriate placement of thrombolysis catheter. 2. Anticoagulation status: TPA at 0.5 mg with 500 units of heparin per hour. For follow-up angiogram for tomorrow. This note is constructed using voice recognition software. While every effort has been made to ensure accuracy, java software developer errors may have been included. Thank you for allowing me to participate in the care of your patient. Yours sincerely, Bimal Kntot MD, FACS, R.P.V.I.
--- NOTE | 2024-01-07 11:50 | HO.VASCH&P ---
History of Present Illness History of Present Illness Date of Service: 01/07/24 Chief complaint: PAD, RT LEG Narrative: Zan Encinas is a 63 year old male who had thrombolysis today due to acute limb ischemia. He had a nonhealing ulceration on the dorsum of his right foot. He has had multiple vascular procedures at [facility], as well as most recently, at [facility] in early November. On a follow-up last week, he was found to have increased pain in his right lower extremity with nonhealing of the ulceration. He also endorsed his right foot cold and he noticed his foot was getting a very deep red color again, which occurred prior to his other procedures. Review of Systems Constitutional: Constitutional: Reports as per HPI and Denies weakness ENT: Reports Normal hearing present and Denies dizziness Cardiovascular: Cardiovascular: Reports as per HPI, Denies chest pain, Denies chest pain at rest, Denies chest pain with activity, Denies dyspnea and Denies dyspnea on exertion Respiratory: Respiratory: Reports as per HPI, Denies cough, Denies dyspnea and Denies dyspnea on exertion Gastrointestinal: Gastrointestinal: Reports as per HPI, Denies abdominal pain, Denies nausea and Denies vomiting Musculoskeletal: Musculoskeletal: Denies numbness Integumentary/Breasts: Skin/Breast: Reports as per HPI, Denies erythema and Denies wounds Neurologic: Reports Normal hearing present, Denies dizziness, Denies numbness, Denies Sensory deficit (Neuro) and Denies weakness Psychiatric: Psychiatric: Reports no additional psychiatric complaints Endocrine: Endocrine: Reports no additional endocrine complaints PMFSH Past Medical History Medical History Peripheral arterial disease Bakers cyst Nicotine dependence, cigarettes, uncomplicated Complex regional pain syndrome i of right lower limb Arthritis BPH (benign prostatic hyperplasia) Elevated cholesterol S/P angiogram of extremity (07/18/23) Atrial fibrillation History of Palmer's esophagus Splenic vein thrombosis History of femoral angiogram GERD (gastroesophageal reflux disease) COPD (chronic obstructive pulmonary disease) Surgical History Surgical History Hx of oral surgery Hx of tracheostomy History of esophagogastroduodenoscopy (EGD) H/O colonoscopy Social History Social History Household Members: None Housing: Apartment Are you a primary rn care transition to a significant other at home: No Do you presently have visiting nurse or other home services: No Patient Tobacco Use Status: Current everyday Tobacco user Tobacco use type: Cigarette Cigarette Packs Per Day: 0.5 Cigarettes Per Day: 10 Years Smoked: 41 e-Cigarette/Vaping Use: Former Use Substance Use Type: Marijuana Have you been hit, kicked, punched, or otherwise hurt by someone within the past year? If so, by whom?: No Are you DNR?: No Advance Directives: No Advance Directives Information Provided: Yes Nutrition Risks: No Nutritional Risk service: No Meds Allergies Allergy/AdvReac Type Severity Reaction Status Date / Time No Known Allergies Allergy Verified 01/03/24 15:05 Active Medications: Current Medications Acetaminophen (Acetaminophen 325 Mg Tablet) 650 mg PO Q6H PRN PRN Reason: Pain, Mild (Pain Scale 1-3) Atorvastatin Calcium (Atorvastatin Calcium 10 Mg Tablet) 10 mg PO DAILY [facility] Sodium Chloride (Ns) 1,000 mls @ 100 mls/hr IVCONT .Q10H [facility] Last Admin: 01/07/24 10:52 Dose: 100 mls/hr Alteplase, Recombinant 5 mg/ (Sodium Chloride) 500 mls @ 50 mls/hr INTRAPLEUR .Q10H [facility] Stop: 01/07/24 19:29 Last Admin: 01/07/24 10:09 Dose: 0.5 mg/hr, 50 mls/hr Heparin Sodium/Sodium Chloride (Heparin Sodium,Porcine/1/2ns) 25,000 unit in 250 mls @ 5 mls/hr INTRAARTCO .Q24H [facility] Last Admin: 01/07/24 10:09 Dose: 500 unit/hr, 5 mls/hr Morphine Sulfate (Morphine Sulfate 4 Mg/Ml Cartridge) 4 mg IVPUSH Q2H PRN; Protocol PRN Reason: Pain, Severe (Pain Scale 7-10) Last Admin: 01/07/24 10:57 Dose: 4 mg Oxycodone HCl (Oxycodone Hcl Immed Release 5 Mg Tablet) 10 mg PO Q4H PRN PRN Reason: Pain, Moderate(Pain Scale 4-6) Last Admin: 01/07/24 11:18 Dose: 10 mg Home Medications ?Medication ?Instructions ?Recorded ?Confirmed ?Last Taken ?Type aspirin 81 mg tablet,delayed 81 mg PO DAILY 11/16/20 10/28/24 11/11/24 History release (Luis Low Dose Aspirin) pantoprazole 40 mg tablet,delayed 80 mg PO DAILY@0630 01/12/20 12/24/23 01/07/24 History release tamsulosin 0.4 mg capsule 0.8 mg PO DAILY 01/12/20 12/24/23 01/07/24 History atorvastatin 10 mg tablet 10 mg PO DAILY 05/04/20 12/24/23 01/07/24 History ascorbic acid (vitamin C) 500 mg 500 mg PO DAILY 08/14/23 12/24/23 01/07/24 History tablet (Vitamin C) oditywgp-ta-ktzoy 300 mcg-K 60 1 tab PO DAILY 10/02/23 12/24/23 01/07/24 History mcg-lycop 600 mcg-lutein 300 mcg tablet (Centrum Silver Men) amoxicillin 875 mg-potassium 1 tab PO BID 12/17/23 12/24/23 Unknown History clavulanate 125 mg tablet apixaban 5 mg tablet (Eliquis) 5 mg PO BID 12/17/23 12/24/23 Unknown History gabapentin 400 mg capsule 800 mg PO BID 12/17/23 12/24/23 01/07/24 History metoprolol succinate 25 mg 25 mg PO DAILY 12/17/23 12/24/23 01/07/24 History tablet,extended release 24 hr oxycodone 5 mg tablet mg PO 12/17/23 12/24/23 Unknown History varenicline 0.5 mg (11)-1 mg (42) 0 ea PO 12/17/23 12/24/23 Unknown History tablets in a dose pack Physical Exam Vital Signs: Vital Signs: Last Vital Signs Temp 98.5 F 01/07/24 06:33 Pulse 61 01/07/24 11:22 Resp 17 01/07/24 11:22 BP 140/74 H 01/07/24 11:22 Pulse Ox 100 01/07/24 11:00 O2 Del Method Room Air 01/07/24 11:00 BMI result Body Mass Index 27.1 Const: General: healthy appearing and no acute distress Orientation/consciousness: patient oriented x3 HEENT: Head: Yes normal to inspection Ears: hearing grossly normal bilaterally Mouth: Normal oral and palatal mucosa present Resp: Effort & Inspection: normal respiratory effort and able to speak in complete sentences Auscultation: clear to auscultation bilaterally Cardio: Jugular venous distension: no JVD Rate: regular rate Rhythm: regular rhythm Heart sounds: S1 normal heart sound present and S2 normal heart sound present Bruits: no abdominal aortic bruits, no carotid bruits, no femoral bruits and no renal bruits Peripheral pulses: Peripheral pulses 2+ throughout GI: Inspection: Yes normal to inspection Palpation (GI): No Abdominal aortic bruit present Skin: General skin exam: no rashes or lesions noted Wounds: no wounds Hair: normal Neuro: General: patient oriented x3 Cranial nerves: Yes Normal hearing present Cognition (Neuro): normal cognition Gait exam (Neuro): Normal gait present Motor exam (neuro): 5/5 motor strength present throughout Sensory Exam: No Sensory deficit (Neuro) Extrem: Other: Right lower extremity/foot: Ulceration noted on the dorsum of the foot. Deep erythematous throughout the foot. Unable to palpate DP pulses. Foot feels cool to the touch. General: Yes normal to inspection, Yes full ROM, Yes capillary refill normal and Yes normal gait Results Results Labs: Short CBC 01/07/24 Range/Units 06:48 WBC 8.2 (4.8-10.8) X10*3/uL Hgb 13.8 L (14.0-18.0) g/dl Hct 42.0 (42.0-52.0) % Plt Count 261 (160-400) X10*3/uL BMP 01/07/24 06:48 BUN 16 Creatinine 0.81 Assessment and Plan (1) Peripheral arterial disease: Status: Acute Plan Zan was brought in for a thrombolysis today in the IR suite with Dr. Sheehan and myself. He has acute limb ischemia of the right lower extremity. He was seen last week as a follow-up to a revascularization at [facility] in the beginning of November. He states the week prior his foot began feeling cool, discolored, and the ulceration was getting worse, not better. Due to this, we ordered a stat arterial ultrasound which revealed clotting back at the revascularization site. He tolerated the procedure well. He was brought to the ICU after the procedure. Refer to Dr. Knott's note for surgical procedure. Quality Stroke Does the patient have a stroke diagnosis?: No VTE Prior VTE?: No VTE Risk Level:: Surgical - high VTE Device Contraindication: N/A - Device Ordered VTE Drug Contraindication: N/A - Med Ordered Procedures Date of Service Date of Service: 01/07/24
[2024-01-07] MEDS: Acetaminophen 325 MG TABLET 650 MG PO ×3 (13:11→23:50)
--- NOTE | 2024-01-07 15:11 | MHC.CM.PN ---
Met with pt to review d/c planning needs: Pt independent - has a walker and nebulizer and follows w/Dr. Callahan. No services and HCP declined. Pt states his son will transport him to home and assist as needed w/care. IMM in chart. CM to follow.
--- NOTE | 2024-01-07 15:41 | PHA.MEDREC ---
Addendum entered by Cassidy Rodriguez RPh 01/07/24 15:48: reviewed by [facility]. Original Note: Pharmacy Consult ? Medication Reconciliation Pharmacy has completed the medication reconciliation. Spoke with patient and he confirmed his medications. He confirmed he is taking the Eliquis 5mg tab still and stated he stopped it for surgery on Thursday 01/[address] tells him to go back on it. He confirmed the Incruse Elipta inhaler but states he has not picked it up yet from his pharmacy. He states he took his morning meds this morning at 0500.
[2024-01-07 16:59] LABS: Fibrinogen 465 MG/DL (259-690)
[2024-01-07 17:02] LABS: PTT Heparin Drip 33.9 SEC (53-77.9)
--- NOTE | 2024-01-07 17:12 | PC.NURSE ---
Patient admitted to ICU 261, at approx 1040 am, post placement of intra-arterial tPA catheter for right-sided graft occlusion from popliteal bypasses. Bedside report received from IR nurses. Sera OSORIO, Dr Case, and Dr Knott made aware of CMS status of right foot - per providers, foot presentation is expected and last week pulses were not able to be found as well. No pedal pulses noted post tib or dorsal ped via doppler Right foot in pain, but also absent sensation when touched Right foot nancy and cool to touch, less ability to move right foot, compared to left foot. Moves toes small amt. Left groin insertion site of sheath assessed per order - No issues noted with bleeding or hematoma. Educated patient about notifying RN if any s/s of hematoma or bleeding. Neuros remained intact. Window dressing intact. Clarified labs expected to be drawn post procedure - heparin and TPA infusing - Dr Knott instructed to follow order sheet. Order sheet obtained from IR RN at approx 1600, labs and parameters ordered per order sheet. Fibrinogen Q4h post procedure for 24 hours and PTT Q8h for [address] Knott aware, fibrinogen was not drawn at 1400. No abnormal bleeding or bruising noted for patient. Dr Knott ordered to contact him about labs only if critical. Patient alert and oriented, verbalizing pain in right foot. Chronic venous ulcer on top of foot by right great toe. Right foot ulcer redressed with xeroform and dry sterile dressing. Sera OSORIO aware of pain control and pain medication patient receiving. Patient reports history of constipation with opiates, Dr Case aware and ordered lactulose. Both feet elevated on pillows. Report given to Geno VICTOIRA at approx 1500.
[2024-01-07] MEDS: Lactulose 20 GM/30 ML SOLUTION 30 GM PO (18:30)
--- NOTE | 2024-01-07 19:23 | PC.NURSE ---
PT A&OX3. C/o pain right foot and received morphine sulfate iv and oxycodone 10mg Po with some effect. No pulses to R foot with doppler. Pos pulses left foot with doppler. Pt also has no feeling in R foot with decreased mobility. Left foot sensation is good. Thrombolosys cath intact left groin. Dsg D&I. No hematoma noted. Heparin drip infusing as ordered with TPA intracath continuously as ordered. Both feet on pillow with heels off bed. BP stable. Monitor SR,60's occ PAC noted. Afebrile. Pt ate 1/2 of dinner and taking po fluids well. Voiding in urinol.
[2024-01-07 22:20] LABS: Fibrinogen 445 MG/DL (259-690)
[2024-01-08] VITALS (56 sets, daily range): BP systolic 53–176; BP diastolic 35–82; PULSE 52–120; RESP 12–22; TEMP 36.4–37; O2SAT 92–99; BMI 28.3
[2024-01-08] MEDS: 0.9 % Sodium Chloride 1,000 ML 100 ML IVCONT (02:22)
[2024-01-08 02:27] LABS: Fibrinogen 432 MG/DL (259-690)
[2024-01-08 02:29] LABS: PTT Heparin Drip 40.9 SEC (53-77.9)
[2024-01-08] MEDS: oxyCODONE HCl Immed Release 15 MG TABLET PO ×3 (03:15→18:10)
[2024-01-08] MEDS: Acetaminophen 325 MG TABLET 650 MG PO ×2 (04:30→19:56)
[2024-01-08] MEDS: Morphine Sulfate 4 MG/ML CARTRIDGE IVPUSH ×2 (04:30→19:57)
[2024-01-08] MEDS: Alteplase Cath Clear 5 MG in 0.9 % Sodium Chloride 495 ML 50 MG INTRAPLEUR (04:31)
[2024-01-08 06:04] LABS: MANUAL DIFF FLAG NO
[2024-01-08 06:08] LABS: Basophils Absolute Auto 0.1 X10*3/uL (0.0-0.2); Basophils Percent Auto 0.5 % (0-2); Eosinophils Absolute Auto 0.2 X10*3/uL (0.0-0.4); Eosinophils Percent Auto 1.6 % (0-4); Hematocrit 37.3 % (42.0-52.0); Hemoglobin 12.5 g/dl (14.0-18.0); Imm Gran Abs Auto 0.04 X10*3/uL (0.00-0.03); Imm Gran Pct Auto 0.4 % (0.0-0.4); Lymphocytes Absolute Auto 1.2 X10*3/uL (1.2-4.9); Lymphocytes Percent Auto 11.9 % (20-40); Mean Corpuscular HGB Conc 33.5 g/dl (31.0-36.0); Mean Corpuscular Hemoglobin 32.4 pg (27.0-33.0); Mean Corpuscular Volume 96.6 fL (80.0-98.0); Mean Platelet Volume 9.6 fL (9.4-12.4); Monocytes Absolute Auto 1.2 X10*3/uL (0.1-1.2); Monocytes Percent Auto 11.9 % (2-11); Neutrophils Absolute Auto 7.4 x10*3/uL (2.0-8.3); Neutrophils Percent Auto 73.7 % (45-73); Platelet Count 159 X10*3/uL (160-400); Red Blood Count 3.86 X10*6/uL (4.60-5.80); Red Cell Distribution Width 12.8 % (11.0-16.0); White Blood Count 10.1 X10*3/uL (4.8-10.8)
[2024-01-08 06:13] LABS: Fibrinogen 441 MG/DL (259-690)
[2024-01-08 06:27] LABS: Albumin Level 3.2 g/dL (3.5-5.0); Anion Gap 12 (12-20); Blood Urea Nitrogen 8 mg/dL (9-16); Calcium 8.7 mg/dL (8.4-10.2); Carbon Dioxide 22 mmol/L (22-29); Chloride 108 mmol/L (96-108); Creatinine Clr Calc Pharmacy 118.8; Estimated Glomerular Filt Rate > 60; Glucose Random 110 mg/dL (60-115); Magnesium 1.8 mg/dL (1.6-2.6); Phosphorus 2.9 mg/dL (2.7-4.5); Potassium 3.8 mmol/L (3.3-5.1); Sodium 138 mmol/L (135-145)
[2024-01-08] MEDS: Albumin Human 25 % 100 ML IV ×2 (07:32→14:25)
[2024-01-08] MEDS: fentaNYL citrate/PF 100 MCG/2 ML VIAL 25 MCG IVPUSH (08:39)
[2024-01-08] MEDS: Midazolam HCl/PF 2 MG/2 ML VIAL 0.5 MG IVPUSH (08:40)
[2024-01-08] MEDS: Heparin Sodium,Porcine 5,000 UNIT/ML VIAL 7000 UNIT IVPUSH (08:55)
--- NOTE | 2024-01-08 09:56 | P.OP_ITS ---
Operative Note Operative Note Date of Service: 01/08/24 Narrative: Angiogram report from [facility] Preoperative diagnosis: Atherosclerosis of right lower extremity with occluded bypass graft Postoperative diagnosis: Same Procedure: 1. Day 2 follow-up thrombolysis 2. Right lower extremity angiogram 3. Plasty of anterior tibial artery Surgeon:Bimal Knott M.D., FACS, RPVI Special Education Educational Assistant:None Anesthesia: Local with moderate conscious sedation. Total intraservice moder ate sedation time was 71 minutes. I monitored the patient's level of consciousness and physiologic status continuously throughout the procedure. Specimens:none Drains:none Estimated blood loss: Less than 10 ml Implant: None Indications: Pleasant 63-year-old gentleman who had an occluded bypass graft has undergone thrombolysis overnight. Appears to be doing significantly better. Now for follow-up. The patient has signed the informed consent after reviewing risks, complications, benefits, and alternatives previously discussed with the patient. The patient was given the opportunity to ask any additional questions or voice any concerns. All questions were answered to the patient's satisfaction. Procedure in detail: Patient was brought to the angiography suite prior to which a time-out was called for patient identification and site verification. Left groins were prepped and draped in the standard surgical fashion. We placed a Glidewire advantage through the previous Cragg Harvey catheter. Once in appropriate position the catheter was then remove. We also exchanged out the [place] sheath for a 6 [place] up and over destination sheath. At this time 7000 units of heparin was given and an additional 2000 units of heparin was required to achieve appropriate ACT. Once this was all accomplished angiogram demonstrated opening of the bypass graft but there was a stenosis at the distal anastomosis on the anterior tibial artery. We brought in a 3 x 40 balloon. This area was plasty did with this balloon in the anterior tibial artery. Completion angiogram demonstrated excellent result. Catheter wire sheath was brought back to the ipsilateral side and StarClose closure device was deployed. Adequate hemostasis was achieved. Patient tolerated the procedure well and returned to recovery with stable vitals. Interpretation of films: 1. Right leg demonstrated resolution of the thrombus of the graft. Completion angiogram demonstrated good flow throughout all the vessels do occlude at the level of the ankle. Tenuous runoff. 2. Post plasty of the anterior tibial demonstrated good flow at the distal anastomosis. Conclusion: 1. Successful follow-up to thrombolysis. Successful plasty of anterior tibial artery. 2. Anticoagulation status: Will restart on heparin drip and can be placed on Eliquis tomorrow. This note is constructed using voice recognition software. While every effort has been made to ensure accuracy, supervisor litharge errors may have been included. Thank you for allowing me to participate in the care of your patient. Yours sincerely, Bimal Knott MD, FACS, R.P.V.I.
--- NOTE | 2024-01-08 10:13 | P.PNCC_ITS ---
Subjective Subjective Date of Service: 01/08/24 Interval History: 63-year-old gentleman with underlying COPD, peripheral arterial disease, splenic vein thrombosis, AFib, BPH with prior right-sided popliteal bypasses with occlusion, now status post placement of intra-arterial tPA catheter monitored in the intensive care unit overnight. This a.m. status post to repeat fluoroscopy with demonstration of improved graft patency. Critical Care Time (minutes): 0 Physical Exam 2 Vital Signs: Vital Signs: Last Vital Signs Temp 98.6 F 01/08/24 04:31 Pulse 64 01/08/24 09:15 Resp 15 01/08/24 09:15 BP 102/53 L 01/08/24 09:15 Pulse Ox 98 01/08/24 09:15 O2 Del Method Room Air 01/08/24 09:15 O2 Flow Rate 2 01/08/24 09:15 BMI result Body Mass Index 28.3 Const: General: no acute distress, alert and awake Eyes: Sclerae: sclerae normal EOM: EOMs intact bilaterally Neck: Neck: Yes no lymphadenopathy, Yes trachea midline and Yes supple Resp: Effort & Inspection: normal respiratory effort and no respiratory distress Auscultation: clear to auscultation bilaterally Cardio: Rate: regular rate Rhythm: regular rhythm Heart sounds: no gallops, no murmurs and no rubs GI: Palpation (GI): Soft to palpation and Other GI palpation findings present ( Nontender) Auscultation: normal bowel sounds Extrem: General: Yes no pedal edema, No clubbing and No cyanosis Objective Data Labs 01/08/24 05:40 01/08/24 05:40 Labs: Laboratory Results - last 24 hr 01/07/24 01/07/24 01/08/24 16:49 22:03 02:12 WBC RBC Hgb Hct MCV MCH MCHC RDW Plt Count MPV Immature Gran % (Auto) Neut % (Auto) Lymph % (Auto) [place] % (Auto) Eos % (Auto) Baso % (Auto) Lymph # (Auto) [place] # (Auto) Eos # (Auto) Baso # (Auto) Abs Immat Gran (auto) Absolute Neuts (auto) Absolute Nucleated RBC Nucleated RBC % (auto) aPTT Heparin Protocol 33.9 L 40.9 L D Fibrinogen 465 445 432 Sodium Potassium Chloride Carbon Dioxide Anion Gap BUN Creatinine Estim Creat Clear Calc Estimated GFR Random Glucose Calcium Phosphorus Magnesium Albumin 01/08/24 05:40 WBC 10.1 RBC 3.86 L Hgb 12.5 L Hct 37.3 L MCV 96.6 MCH 32.4 MCHC 33.5 RDW 12.8 Plt Count 159 L D MPV 9.6 Immature Gran % (Auto) 0.4 Neut % (Auto) 73.7 H Lymph % (Auto) 11.9 L [place] % (Auto) 11.9 H Eos % (Auto) 1.6 Baso % (Auto) 0.5 Lymph # (Auto) 1.2 [place] # (Auto) 1.2 Eos # (Auto) 0.2 Baso # (Auto) 0.1 Abs Immat Gran (auto) 0.04 H Absolute Neuts (auto) 7.4 Absolute Nucleated RBC 0.000 Nucleated RBC % (auto) 0.0 aPTT Heparin Protocol Fibrinogen 441 Sodium 138 Potassium 3.8 Chloride 108 Carbon Dioxide 22 Anion Gap 12 BUN 8 L Creatinine 0.68 Estim Creat Clear Calc 118.8 Estimated GFR > 60 Random Glucose 110 Calcium 8.7 D Phosphorus 2.9 Magnesium 1.8 Albumin 3.2 L Progress Note: A&P Assessment and plan (1) Peripheral arterial disease: Status: Acute Plan Assessment: 63-year-old gentleman with underlying peripheral arterial disease now status post placement of right sided intra-arterial tPA catheter for occluded popliteal graft, now status post successful thrombolysis of of an occluded graft Plan: Neuro: No acute issues. Cardiac: Peripheral artery disease with an occluded popliteal graft on the right, now status post successful thrombolysis. Vascular surgery service care appreciated. Heparin drip as per vascular surgery. Underlying history of AFib. Pulmonary: No acute issues. Underlying history of COPD. Renal: No acute issues. Endo: No acute issues. GI: No acute issues. ID: No acute issues Heme/Onc: No acute issues. Psych: No acute issues. Miscellaneous: No acute issues. Prophylaxis: Heparin drip Diet: Regular Quality Stroke Does the patient have a stroke diagnosis?: No VTE Prior VTE?: No VTE Risk Level:: Surgical - high VTE Device Contraindication: N/A - Device Ordered VTE Drug Contraindication: N/A - Med Ordered
--- NOTE | 2024-01-08 10:13 | MHC.CM.PN ---
Pt continues care in ICU - femoral cath w/thrombolytic infusing. Pt will go to IR today for more imaging. Pt to return to home w/outpt follow up. CM to follow
[2024-01-08] MEDS: Norepinephrine Bitartrate/D5W 8 MG/250 ML PLAST..BAG 8.86 MG IVCONT (10:25)
[2024-01-08] MEDS: DOPamine HCL/D5W 400 MG/250 ML PLAST..BAG 17.72 MG IVCONT (10:43)
[2024-01-08 10:52] LABS: ABG Base Excess -1.2 mmol/L; ABG HCO3 22 mmol/L (22-26); ABG pCO2 34 mmHg (32-45); ABG pH 7.42 (7.35-7.45); ABG pO2 95 mmHg (83-108)
[2024-01-08] MEDS: Lactated Ringers 1,000 ML 999 ML IV (10:53)
[2024-01-08 11:01] LABS: Basophils Absolute Auto 0.1 X10*3/uL (0.0-0.2); Basophils Percent Auto 0.6 % (0-2); Eosinophils Absolute Auto 0.4 X10*3/uL (0.0-0.4); Eosinophils Percent Auto 1.9 % (0-4); Hematocrit 30.9 % (42.0-52.0); Hemoglobin 10.5 g/dl (14.0-18.0); Imm Gran Abs Auto 0.13 X10*3/uL (0.00-0.03); Imm Gran Pct Auto 0.6 % (0.0-0.4); Lymphocytes Absolute Auto 3.8 X10*3/uL (1.2-4.9); Lymphocytes Percent Auto 19.1 % (20-40); MANUAL DIFF FLAG SCAN; Mean Corpuscular Volume 97.2 fL (80.0-98.0); Mean Platelet Volume 9.7 fL (9.4-12.4); Monocytes Absolute Auto 2.3 X10*3/uL (0.1-1.2); Monocytes Percent Auto 11.5 % (2-11); Neutrophils Absolute Auto 13.3 x10*3/uL (2.0-8.3); Neutrophils Percent Auto 66.3 % (45-73); Platelet Count 270 X10*3/uL (160-400); Red Blood Count 3.18 X10*6/uL (4.60-5.80); Red Cell Distribution Width 12.8 % (11.0-16.0); SCAN SMEAR FLAG 1
[2024-01-08] MEDS: iohexoL 350 MG/ML 100 ML INFUS..BTL IV (11:16)
[2024-01-08] MEDS: ondansetron HCL 4 MG/2 ML VIAL IVPUSH (11:25)
[2024-01-08 11:34] LABS: SLIDE REVIEW VERIFIED
[2024-01-08 11:56] LABS: PTT Heparin Drip > 200.0 SEC (53-77.9)
[2024-01-08 12:12] LABS: ABG Refer to POC result
--- NOTE | 2024-01-08 12:34 | PC.NURSE ---
Assumed care at 0700- on assumption, pt. AOx4, SBPs 120s-130s with MAPs sustaining >65, HR 60s-70s SR with PACs. Pt. c/o right foot pain- see CMS assessment. Handoff given to IR RN by this RN and Pt. transported to IR at [address] Knott- see report. At approx 0930 pt. returned to ICU, transported by IR RNs, handoff complete. Pt. c/o new onset abdominal pain. Assisted onto bedpan by this RN and CCT- pt. with moderate firm BM. Pt. became visibly pale and diaphoretic, no complaints of headache or dizziness. SBPs sustaining 50s-70s, MAPs <65- Dr. Knott and Tinner Helper notified, coal loader at bedside. 1 L LR bolus given and Levophed gtt started and titrated per APR. HR decreased and sustaining 50s- dopamine started and titrated per APR. STAT ABG, CBC, and type and screen ordered and drawn- see results. Pt. transported to CT by this RN for STAT Abdominal/Pelvic scan- see report. On return to unit, pt. c/o nausea- zofran given per APR. Pt. resting in bed comfortably. Current VS-HR 90, BP 117/69 on levophed gtt, 99% on RA. Call le within reach, bed locked and in lowest position- Pt. laying supine s/p angiogram. Hovermat system in place, Q2 repositioning performed. Update given to pt. by Dr. Knott and this RN. Plan of care ongoing.
[2024-01-08] MEDS: fentaNYL citrate/PF 100 MCG/2 ML VIAL 50 MCG IVPUSH (14:44)
[2024-01-08 15:03] LABS: Hematocrit 31.4 % (42.0-52.0); Hemoglobin 10.3 g/dl (14.0-18.0); Mean Corpuscular HGB Conc 32.8 g/dl (31.0-36.0); Mean Corpuscular Volume 97.5 fL (80.0-98.0); Mean Platelet Volume 9.5 fL (9.4-12.4); Platelet Count 319 X10*3/uL (160-400); Red Blood Count 3.22 X10*6/uL (4.60-5.80); Red Cell Distribution Width 12.9 % (11.0-16.0); White Blood Count 28.7 X10*3/uL (4.8-10.8)
[2024-01-08] MEDS: Norepinephrine Bitartrate/D5W 8 MG/250 ML PLAST..BAG 21.26 MG IVCONT (18:03)
[2024-01-08 19:57] LABS: Basophils Absolute Auto 0.1 X10*3/uL (0.0-0.2); Basophils Percent Auto 0.3 % (0-2); Hematocrit 27.9 % (42.0-52.0); Hemoglobin 9.4 g/dl (14.0-18.0); Imm Gran Abs Auto 0.22 X10*3/uL (0.00-0.03); Lymphocytes Absolute Auto 1.6 X10*3/uL (1.2-4.9); Lymphocytes Percent Auto 7.3 % (20-40); MANUAL DIFF FLAG SCAN; Mean Corpuscular HGB Conc 33.7 g/dl (31.0-36.0); Mean Corpuscular Hemoglobin 32.8 pg (27.0-33.0); Mean Corpuscular Volume 97.2 fL (80.0-98.0); Mean Platelet Volume 9.7 fL (9.4-12.4); Monocytes Absolute Auto 1.9 X10*3/uL (0.1-1.2); Monocytes Percent Auto 8.5 % (2-11); Neutrophils Absolute Auto 18.1 x10*3/uL (2.0-8.3); Neutrophils Percent Auto 82.9 % (45-73); Platelet Count 292 X10*3/uL (160-400); Red Blood Count 2.87 X10*6/uL (4.60-5.80); SCAN SMEAR FLAG 1; White Blood Count 21.8 X10*3/uL (4.8-10.8)
[2024-01-08 20:15] LABS: Anion Gap 9 (12-20); Blood Urea Nitrogen 13 mg/dL (9-16); Calcium 8.4 mg/dL (8.4-10.2); Carbon Dioxide 23 mmol/L (22-29); Chloride 107 mmol/L (96-108); Creatinine Clr Calc Pharmacy 90.5; Estimated Glomerular Filt Rate > 60; Glucose Random 161 mg/dL (60-115); Magnesium 1.9 mg/dL (1.6-2.6); Phosphorus 4.1 mg/dL (2.7-4.5); Potassium 4.9 mmol/L (3.3-5.1); Sodium 134 mmol/L (135-145)
[2024-01-08 20:25] LABS: SLIDE REVIEW VERIFIED
[2024-01-09] VITALS (37 sets, daily range): BP systolic 94–127; BP diastolic 48–68; PULSE 61–86; RESP 11–23; TEMP 36.7–37.6; O2SAT 92–99; BMI 28.7
[2024-01-09] MEDS: oxyCODONE HCl Immed Release 15 MG TABLET PO ×4 (00:36→20:17)
[2024-01-09] MEDS: Morphine Sulfate 4 MG/ML CARTRIDGE IVPUSH ×3 (04:38→18:01)
[2024-01-09] MEDS: Albuterol Sulfate (0.083%) 2.5 MG/3 ML VIAL.NEB INHALE (05:04)
[2024-01-09 05:42] LABS: Basophils Absolute Auto 0.1 X10*3/uL (0.0-0.2); Basophils Percent Auto 0.4 % (0-2); Eosinophils Absolute Auto 0.1 X10*3/uL (0.0-0.4); Eosinophils Percent Auto 0.7 % (0-4); Hemoglobin 7.7 g/dl (14.0-18.0); Imm Gran Pct Auto 0.6 % (0.0-0.4); Lymphocytes Absolute Auto 2.7 X10*3/uL (1.2-4.9); MANUAL DIFF FLAG SCAN; Mean Corpuscular HGB Conc 33.5 g/dl (31.0-36.0); Mean Corpuscular Hemoglobin 32.2 pg (27.0-33.0); Mean Corpuscular Volume 96.2 fL (80.0-98.0); Monocytes Absolute Auto 2.1 X10*3/uL (0.1-1.2); Monocytes Percent Auto 12.5 % (2-11); Neutrophils Absolute Auto 11.6 x10*3/uL (2.0-8.3); Neutrophils Percent Auto 69.8 % (45-73); Platelet Count 220 X10*3/uL (160-400); Red Blood Count 2.39 X10*6/uL (4.60-5.80); Red Cell Distribution Width 12.8 % (11.0-16.0); SCAN SMEAR FLAG 1; White Blood Count 16.7 X10*3/uL (4.8-10.8)
[2024-01-09 05:54] LABS: Albumin Level 3.2 g/dL (3.5-5.0); Anion Gap 14 (12-20); Blood Urea Nitrogen 17 mg/dL (9-16); Calcium 8.7 mg/dL (8.4-10.2); Carbon Dioxide 22 mmol/L (22-29); Chloride 105 mmol/L (96-108); Creatinine Clr Calc Pharmacy 62.3; Estimated Glomerular Filt Rate 50; Glucose Random 127 mg/dL (60-115); Magnesium 1.9 mg/dL (1.6-2.6); Potassium 4.5 mmol/L (3.3-5.1); Sodium 136 mmol/L (135-145)
[2024-01-09 06:03] LABS: SLIDE REVIEW VERIFIED
[2024-01-09] MEDS: Pantoprazole Sodium 40 MG/10 ML VIAL IVPUSH ×2 (06:05→15:41)
[2024-01-09 08:28] LABS: Prothrombin Time 11.5 SEC (10.9-12.4)
[2024-01-09 08:31] LABS: PTT Heparin Drip 28.1 SEC (53-77.9)
[2024-01-09] MEDS: Lactulose 20 GM/30 ML SOLUTION 30 GM PO (08:32)
[2024-01-09] MEDS: Albumin Human 25 % 100 ML IV ×2 (08:32→14:41)
[2024-01-09] MEDS: Atorvastatin Calcium 10 MG TABLET PO (08:32)
[2024-01-09] MEDS: Heparin Sodium,Porcine/1/2NS 25,000 UNIT/250 ML IV.SOLN 10 UNIT IVCONT (08:45)
--- NOTE | 2024-01-09 09:17 | P.PNVS_ITS ---
Subjective Subjective Date of Service: 01/09/24 Patient reports: no new complaints and feels better Interval history: Patient seen and examined. No significant events overnight. Appears to be doing somewhat better today. Tolerating regular diet. His hemoglobin did drift down last night to 7.7. Doing much better in terms of hemodynamics. Now for postprocedure follow-up. Physical Exam Vital Signs: Vital Signs: Last Vital Signs Temp 98.7 F 01/09/24 08:00 Pulse 79 01/09/24 08:37 Resp 20 01/09/24 08:00 BP 108/50 L 01/09/24 08:37 Pulse Ox 96 01/09/24 08:00 O2 Del Method Room Air 01/09/24 08:00 O2 Flow Rate 2 01/08/24 09:15 BMI result Body Mass Index 28.7 Const: General: cooperative, healthy appearing and comfortable Orientation/consciousness: oriented to person, oriented to place and oriented to time HEENT: Head: Yes normal to inspection Neck: Neck: Yes normal visual inspection Carotids: no bruits Chest: Chest palpation & inspection: normal inspection of the chest Resp: Effort & Inspection: normal respiratory effort and able to speak in complete sentences Auscultation: clear to auscultation bilaterally, no crackles, no rales, no rhonchi and no wheezes Cardio: Other: Biphasic DP signals Rate: regular rate Rhythm: regular rhythm Heart sounds: S1 normal heart sound present and S2 normal heart sound present Bruits: no carotid bruits Peripheral pulses: Peripheral pulses 2+ throughout GI: Inspection: Yes normal to inspection Skin: Wounds: no wounds Hair: normal Neuro: General: oriented to person, oriented to place and oriented to time Cranial nerves: Yes CN's II-XII intact bilaterally and Yes Normal hearing present Cognition (Neuro): normal cognition Motor exam (neuro): 5/5 motor strength present throughout Extrem: Other: venous exam: No significant superficial varicosities or spider telangi ectasias, minimal edema General: No clubbing, No cyanosis and No edema Psych: Appearance: grossly normal Mental Status: mental status grossly normal Speech and movement: Normal speech and movement present Progress Note: A&P Assessment and plan (1) Peripheral arterial disease: Status: Acute Assessment and Plan: In short patient is doing well status post thrombolysis and plasty. Graft appears to be patent. Concern here now is this retroperitoneal hematoma. It appears to have stabilized. He will get an additional unit of blood in be restarted on heparin. The hope is that he does improve and would be stable for discharge tomorrow. I will be away the next few days. Should there be any int erval issues Sera Saxena my PA will be around in addition Dr. Payton will be covering. Thank you to the preparing box tender for their assistance in his care. Time Spent With Patient Time: Total time managing care of this patient today ____ minutes. Procedures Date of Service Date of Service: 01/09/24 Quality Stroke Does the patient have a stroke diagnosis?: No VTE Prior VTE?: No VTE Risk Level:: Surgical - high VTE Device Contraindication: N/A - Device Ordered VTE Drug Contraindication: N/A - Med Ordered
--- NOTE | 2024-01-09 10:32 | P.PNCC_ITS ---
Subjective Subjective Date of Service: 01/09/24 Interval History: 63-year-old gentleman with underlying COPD, peripheral arterial disease, splenic vein thrombosis, AFib, BPH with prior right-sided popliteal bypasses with occlusion, now status post placement of intra-arterial tPA catheter monitored in the intensive care unit overnight. On 01/08/2024 status post to repeat fluoroscopy with demonstration of improved graft patency, but with development of postprocedure left-sided retroperitoneal hematoma requiring pressor support. No events overnight. Slow drop in hemoglobin. Critical Care Time (minutes): 60 Physical Exam 2 Vital Signs: Vital Signs: Last Vital Signs Temp 98.5 F 01/09/24 09:52 Pulse 71 01/09/24 10:00 Resp 21 H 01/09/24 10:00 BP 109/51 L 01/09/24 10:00 Pulse Ox 97 01/09/24 10:00 O2 Del Method Room Air 01/09/24 10:00 O2 Flow Rate 2 01/08/24 09:15 BMI result Body Mass Index 28.7 Const: General: no acute distress, alert and awake Eyes: Sclerae: sclerae normal EOM: EOMs intact bilaterally Neck: Neck: Yes no lymphadenopathy, Yes trachea midline and Yes supple Resp: Effort & Inspection: normal respiratory effort and no respiratory distress Auscultation: clear to auscultation bilaterally Cardio: Rate: regular rate Rhythm: regular rhythm Heart sounds: no gallops, no murmurs and no rubs GI: Palpation (GI): Soft to palpation and Other GI palpation findings present (Tenderness in the left lower quadrant) Auscultation: normal bowel sounds Extrem: General: Yes no pedal edema, No clubbing and No cyanosis Objective Data Labs 01/09/24 05:34 01/09/24 05:34 Labs: Laboratory Results - last 24 hr 01/08/24 01/08/24 01/08/24 10:27 10:41 10:55 WBC 20.0 H RBC 3.18 L Hgb 10.5 L Hct 30.9 L MCV 97.2 MCH 33.0 MCHC 34.0 RDW 12.8 Plt Count 270 D MPV 9.7 Immature Gran % (Auto) 0.6 H Neut % (Auto) 66.3 Lymph % (Auto) 19.1 L [place] % (Auto) 11.5 H Eos % (Auto) 1.9 Baso % (Auto) 0.6 Lymph # (Auto) 3.8 [place] # (Auto) 2.3 H Eos # (Auto) 0.4 Baso # (Auto) 0.1 Abs Immat Gran (auto) 0.13 H Absolute Neuts (auto) 13.3 H Absolute Nucleated RBC 0.000 Nucleated RBC % (auto) 0.0 Smear Tech's Comments VERIFIED Hold Purple Top PT INR aPTT Heparin Protocol > 200.0 H* D O2 Saturation 99.0 ABG pH at Pt Temp 7.42 ABG pCO2 at Pt Temp 34 ABG pO2 at Pt Temp 95 ABG HCO3 22 ABG Base Excess (Actual) -1.2 Sodium Potassium Chloride Carbon Dioxide Anion Gap BUN Creatinine Estim Creat Clear Calc Estimated GFR Random Glucose Calcium Phosphorus Magnesium Albumin Hold Yellow Top Blood Type Antibody Screen Crossmatch 01/08/24 01/08/24 01/08/24 11:15 11:22 14:34 WBC 28.7 H RBC 3.22 L Hgb 10.3 L Hct 31.4 L MCV 97.5 MCH 32.0 MCHC 32.8 RDW 12.9 Plt Count 319 MPV 9.5 Immature Gran % (Auto) Neut % (Auto) Lymph % (Auto) [place] % (Auto) Eos % (Auto) Baso % (Auto) Lymph # (Auto) [place] # (Auto) Eos # (Auto) Baso # (Auto) Abs Immat Gran (auto) Absolute Neuts (auto) Absolute Nucleated RBC 0.000 Nucleated RBC % (auto) 0.0 Smear Tech's Comments Hold Purple Top SEE NOTE PT INR aPTT Heparin Protocol O2 Saturation ABG pH at Pt Temp ABG pCO2 at Pt Temp ABG pO2 at Pt Temp ABG HCO3 ABG Base Excess (Actual) Sodium Potassium Chloride Carbon Dioxide Anion Gap BUN Creatinine Estim Creat Clear Calc Estimated GFR Random Glucose Calcium Phosphorus Magnesium Albumin Hold Yellow Top See Note Blood Type O Positive Antibody Screen NEGATIVE Crossmatch See Detail 01/08/24 01/09/24 01/09/24 19:19 05:34 08:05 WBC 21.8 H 16.7 H RBC 2.87 L 2.39 L Hgb 9.4 L 7.7 L Hct 27.9 L 23.0 L MCV 97.2 96.2 MCH 32.8 32.2 MCHC 33.7 33.5 RDW 13.0 12.8 Plt Count 292 220 MPV 9.7 9.0 L Immature Gran % (Auto) 1.0 H 0.6 H Neut % (Auto) 82.9 H 69.8 Lymph % (Auto) 7.3 L 16.0 L [place] % (Auto) 8.5 12.5 H Eos % (Auto) 0.0 0.7 Baso % (Auto) 0.3 0.4 Lymph # (Auto) 1.6 2.7 [place] # (Auto) 1.9 H 2.1 H Eos # (Auto) 0.0 0.1 Baso # (Auto) 0.1 0.1 Abs Immat Gran (auto) 0.22 H 0.10 H Absolute Neuts (auto) 18.1 H 11.6 H Absolute Nucleated RBC 0.000 0.000 Nucleated RBC % (auto) 0.0 0.0 Smear Tech's Comments VERIFIED VERIFIED Hold Purple Top PT 11.5 INR 1.0 aPTT Heparin Protocol 28.1 L D O2 Saturation ABG pH at Pt Temp ABG pCO2 at Pt Temp ABG pO2 at Pt Temp ABG HCO3 ABG Base Excess (Actual) Sodium 134 L 136 Potassium 4.9 D 4.5 Chloride 107 105 Carbon Dioxide 23 22 Anion Gap 9 L 14 BUN 13 17 H Creatinine 0.97 1.41 H Estim Creat Clear Calc 90.5 62.3 Estimated GFR > 60 50 Random Glucose 161 H 127 H Calcium 8.4 8.7 Phosphorus 4.1 4.0 Magnesium 1.9 1.9 Albumin 3.2 L Hold Yellow Top Blood Type Antibody Screen Crossmatch Progress Note: A&P Assessment and plan (1) Retroperitoneal hematoma: Status: Acute (2) Peripheral arterial disease: Status: Acute Plan Assessment: 63-year-old gentleman with underlying peripheral arterial disease now status post placement of right sided intra-arterial tPA catheter for occluded popliteal graft, now status post successful thrombolysis of of an occluded graft Plan: Neuro: No acute issues. Cardiac: Peripheral artery disease with an occluded popliteal graft on the right, now status post successful thrombolysis. Vascular surgery service care appreciated. Complicated by left retroperitoneal hematoma, appears to be stabilized. Low-dose heparin drip with no bolus started this a.m. as per vascular surgery. Underlying history of AFib. Pulmonary: No acute issues. Underlying history of COPD. Renal: No acute issues. Endo: No acute issues. GI: No acute issues. ID: No acute issues Heme/Onc: No acute issues. Psych: No acute issues. Miscellaneous: No acute issues. Prophylaxis: Heparin drip Diet: Regular Quality Stroke Does the patient have a stroke diagnosis?: No VTE Prior VTE?: No VTE Risk Level:: Surgical - high VTE Device Contraindication: N/A - Device Ordered VTE Drug Contraindication: N/A - Med Ordered
[2024-01-09 14:21] LABS: MANUAL DIFF FLAG NO
[2024-01-09 14:27] LABS: Basophils Percent Auto 0.4 % (0-2); Eosinophils Absolute Auto 0.1 X10*3/uL (0.0-0.4); Eosinophils Percent Auto 1.2 % (0-4); Hemoglobin 7.5 g/dl (14.0-18.0); Imm Gran Abs Auto 0.04 X10*3/uL (0.00-0.03); Imm Gran Pct Auto 0.4 % (0.0-0.4); Lymphocytes Absolute Auto 1.8 X10*3/uL (1.2-4.9); Lymphocytes Percent Auto 16.4 % (20-40); Mean Corpuscular HGB Conc 34.1 g/dl (31.0-36.0); Mean Corpuscular Hemoglobin 31.6 pg (27.0-33.0); Mean Corpuscular Volume 92.8 fL (80.0-98.0); Mean Platelet Volume 9.5 fL (9.4-12.4); Monocytes Absolute Auto 1.4 X10*3/uL (0.1-1.2); Monocytes Percent Auto 12.9 % (2-11); Neutrophils Absolute Auto 7.4 x10*3/uL (2.0-8.3); Neutrophils Percent Auto 68.7 % (45-73); Platelet Count 158 X10*3/uL (160-400); Red Blood Count 2.37 X10*6/uL (4.60-5.80); Red Cell Distribution Width 14.5 % (11.0-16.0); White Blood Count 10.8 X10*3/uL (4.8-10.8)
--- NOTE | 2024-01-09 15:08 | MHC.CM.PN ---
Pt will continue IV thrombolytics for occluded graft: doing better - ? d/c on 01/09. Plan is for home with family support and outpt follow up. CM to follow
[2024-01-09 15:27] LABS: PTT Heparin Drip 34.2 SEC (53-77.9)
[2024-01-09 20:10] LABS: MANUAL DIFF FLAG NO
[2024-01-09 20:12] LABS: Basophils Percent Auto 0.5 % (0-2); Eosinophils Absolute Auto 0.2 X10*3/uL (0.0-0.4); Hematocrit 23.3 % (42.0-52.0); Hemoglobin 7.7 g/dl (14.0-18.0); Imm Gran Abs Auto 0.02 X10*3/uL (0.00-0.03); Imm Gran Pct Auto 0.2 % (0.0-0.4); Lymphocytes Absolute Auto 1.6 X10*3/uL (1.2-4.9); Lymphocytes Percent Auto 18.7 % (20-40); Mean Corpuscular Hemoglobin 30.9 pg (27.0-33.0); Mean Corpuscular Volume 93.6 fL (80.0-98.0); Mean Platelet Volume 10.5 fL (9.4-12.4); Monocytes Percent Auto 12.4 % (2-11); Neutrophils Absolute Auto 5.5 x10*3/uL (2.0-8.3); Neutrophils Percent Auto 66.2 % (45-73); Platelet Count 107 X10*3/uL (160-400); Red Blood Count 2.49 X10*6/uL (4.60-5.80); Red Cell Distribution Width 14.9 % (11.0-16.0); White Blood Count 8.4 X10*3/uL (4.8-10.8)
[2024-01-09 20:53] LABS: Anion Gap 15 (12-20); Blood Urea Nitrogen 18 mg/dL (9-16); Calcium 8.9 mg/dL (8.4-10.2); Carbon Dioxide 19 mmol/L (22-29); Chloride 106 mmol/L (96-108); Creatinine Clr Calc Pharmacy 92.1; Estimated Glomerular Filt Rate > 60; Glucose Random 99 mg/dL (60-115); Magnesium 2.2 mg/dL (1.6-2.6); Potassium 4.5 mmol/L (3.3-5.1); Sodium 135 mmol/L (135-145)
[2024-01-09 21:42] LABS: PTT Heparin Drip 55.2 SEC (53-77.9)
[2024-01-10] VITALS (38 sets, daily range): BP systolic 90–151; BP diastolic 44–76; PULSE 71–125; RESP 12–26; TEMP 36.6–37.3; O2SAT 93–99; BMI 28.7
[2024-01-10] MEDS: Morphine Sulfate 4 MG/ML CARTRIDGE IVPUSH ×4 (00:12→21:45)
[2024-01-10] MEDS: oxyCODONE HCl Immed Release 15 MG TABLET PO (03:53)
[2024-01-10] MEDS: Heparin Sodium,Porcine/1/2NS 25,000 UNIT/250 ML IV.SOLN 13.84 UNIT IVCONT (03:54)
[2024-01-10 04:09] LABS: PTT Heparin Drip 44.5 SEC (53-77.9)
[2024-01-10 05:12] LABS: Basophils Percent Auto 0.4 % (0-2); Eosinophils Absolute Auto 0.2 X10*3/uL (0.0-0.4); Eosinophils Percent Auto 1.6 % (0-4); Hematocrit 23.8 % (42.0-52.0); Imm Gran Abs Auto 0.05 X10*3/uL (0.00-0.03); Imm Gran Pct Auto 0.5 % (0.0-0.4); Lymphocytes Absolute Auto 1.3 X10*3/uL (1.2-4.9); MANUAL DIFF FLAG NO; Mean Corpuscular HGB Conc 33.6 g/dl (31.0-36.0); Mean Corpuscular Volume 92.2 fL (80.0-98.0); Mean Platelet Volume 9.3 fL (9.4-12.4); Monocytes Percent Auto 11.4 % (2-11); Neutrophils Absolute Auto 6.6 x10*3/uL (2.0-8.3); Neutrophils Percent Auto 72.1 % (45-73); Platelet Count 129 X10*3/uL (160-400); Red Blood Count 2.58 X10*6/uL (4.60-5.80); Red Cell Distribution Width 14.6 % (11.0-16.0); White Blood Count 9.2 X10*3/uL (4.8-10.8)
[2024-01-10 05:28] LABS: Prothrombin Time 12.1 SEC (10.9-12.4)
[2024-01-10 05:38] LABS: Albumin Level 3.5 g/dL (3.5-5.0); Anion Gap 12 (12-20); Blood Urea Nitrogen 16 mg/dL (9-16); Carbon Dioxide 25 mmol/L (22-29); Chloride 103 mmol/L (96-108); Creatinine Clr Calc Pharmacy 100.5; Estimated Glomerular Filt Rate > 60; Glucose Random 102 mg/dL (60-115); Phosphorus 2.8 mg/dL (2.7-4.5); Potassium 4.1 mmol/L (3.3-5.1); Sodium 136 mmol/L (135-145)
[2024-01-10] MEDS: Pantoprazole Sodium 40 MG/10 ML VIAL IVPUSH (06:23)
[2024-01-10] MEDS: Atorvastatin Calcium 10 MG TABLET PO (08:22)
--- NOTE | 2024-01-10 08:37 | P.PNCC_ITS ---
Subjective Subjective Date of Service: 01/10/24 Interval History: 63-year-old gentleman with underlying COPD, peripheral arterial disease, splenic vein thrombosis, AFib, BPH with prior right-sided popliteal bypasses with occlusion, now status post placement of intra-arterial tPA catheter monitored in the intensive care unit overnight. On 01/08/2024 status post to repeat fluoroscopy with demonstration of improved graft patency, but with development of postprocedure left-sided retroperitoneal hematoma requiring pressor support. No events overnight. Off pressor support. Hemoglobin stabilized. Critical Care Time (minutes): 0 Physical Exam 2 Vital Signs: Vital Signs: Last Vital Signs Temp 98.4 F 01/10/24 08:00 Pulse 85 01/10/24 08:25 Resp 20 01/10/24 08:00 BP 143/67 H 01/10/24 08:25 Pulse Ox 97 01/10/24 08:00 O2 Del Method Room Air 01/10/24 08:00 O2 Flow Rate 2 01/08/24 09:15 BMI result Body Mass Index 28.7 Const: General: no acute distress, alert and awake Eyes: Sclerae: sclerae normal EOM: EOMs intact bilaterally Neck: Neck: Yes no lymphadenopathy, Yes trachea midline and Yes supple Resp: Effort & Inspection: normal respiratory effort and no respiratory distress Auscultation: clear to auscultation bilaterally Cardio: Rate: regular rate Rhythm: regular rhythm Heart sounds: no gallops, no murmurs and no rubs GI: Palpation (GI): Soft to palpation and Other GI palpation findings present ( Nontender) Auscultation: normal bowel sounds Extrem: General: Yes no pedal edema, No clubbing and No cyanosis Objective Data Labs 01/10/24 04:59 01/10/24 04:59 Labs: Laboratory Results - last 24 hr 01/08/24 01/09/24 01/09/24 11:22 08:05 14:09 WBC 10.8 RBC 2.37 L Hgb 7.5 L Hct 22.0 L MCV 92.8 MCH 31.6 MCHC 34.1 RDW 14.5 Plt Count 158 L D MPV 9.5 Immature Gran % (Auto) 0.4 Neut % (Auto) 68.7 Lymph % (Auto) 16.4 L [place] % (Auto) 12.9 H Eos % (Auto) 1.2 Baso % (Auto) 0.4 Lymph # (Auto) 1.8 [place] # (Auto) 1.4 H Eos # (Auto) 0.1 Baso # (Auto) 0.0 Abs Immat Gran (auto) 0.04 H Absolute Neuts (auto) 7.4 Absolute Nucleated RBC 0.000 Nucleated RBC % (auto) 0.0 Hold Purple Top PT 11.5 INR 1.0 aPTT Heparin Protocol 28.1 L D Sodium Potassium Chloride Carbon Dioxide Anion Gap BUN Creatinine Estim Creat Clear Calc Estimated GFR Random Glucose Calcium Phosphorus Magnesium Albumin Blood Type O Positive Antibody Screen NEGATIVE Crossmatch See Detail 01/09/24 01/09/24 01/09/24 15:11 19:48 21:23 WBC 8.4 RBC 2.49 L Hgb 7.7 L Hct 23.3 L MCV 93.6 MCH 30.9 MCHC 33.0 RDW 14.9 Plt Count 107 L D MPV 10.5 Immature Gran % (Auto) 0.2 Neut % (Auto) 66.2 Lymph % (Auto) 18.7 L [place] % (Auto) 12.4 H Eos % (Auto) 2.0 Baso % (Auto) 0.5 Lymph # (Auto) 1.6 [place] # (Auto) 1.0 Eos # (Auto) 0.2 Baso # (Auto) 0.0 Abs Immat Gran (auto) 0.02 Absolute Neuts (auto) 5.5 Absolute Nucleated RBC 0.000 Nucleated RBC % (auto) 0.0 Hold Purple Top SEE NOTE PT INR aPTT Heparin Protocol 34.2 L D 55.2 D Sodium 135 Potassium 4.5 Chloride 106 Carbon Dioxide 19 L Anion Gap 15 BUN 18 H Creatinine 0.96 Estim Creat Clear Calc 92.1 Estimated GFR > 60 Random Glucose 99 Calcium 8.9 Phosphorus 3.0 Magnesium 2.2 Albumin Blood Type Antibody Screen Crossmatch 01/10/24 01/10/24 03:49 04:59 WBC 9.2 RBC 2.58 L Hgb 8.0 L Hct 23.8 L MCV 92.2 MCH 31.0 MCHC 33.6 RDW 14.6 Plt Count 129 L MPV 9.3 L Immature Gran % (Auto) 0.5 H Neut % (Auto) 72.1 Lymph % (Auto) 14.0 L [place] % (Auto) 11.4 H Eos % (Auto) 1.6 Baso % (Auto) 0.4 Lymph # (Auto) 1.3 [place] # (Auto) 1.0 Eos # (Auto) 0.2 Baso # (Auto) 0.0 Abs Immat Gran (auto) 0.05 H Absolute Neuts (auto) 6.6 Absolute Nucleated RBC 0.000 Nucleated RBC % (auto) 0.0 Hold Purple Top PT 12.1 INR 1.0 aPTT Heparin Protocol 44.5 L Sodium 136 Potassium 4.1 Chloride 103 Carbon Dioxide 25 Anion Gap 12 BUN 16 Creatinine 0.88 Estim Creat Clear Calc 100.5 Estimated GFR > 60 Random Glucose 102 Calcium 9.0 Phosphorus 2.8 Magnesium 2.0 Albumin 3.5 Blood Type Antibody Screen Crossmatch Progress Note: A&P Assessment and plan (1) Peripheral arterial disease: Status: Acute (2) Retroperitoneal hematoma: Status: Acute Plan Assessment: 63-year-old gentleman with underlying peripheral arterial disease now status post placement of right sided intra-arterial tPA catheter for occluded popliteal graft, now status post successful thrombolysis of of an occluded graft Plan: Neuro: No acute issues. Cardiac: Peripheral artery disease with an occluded popliteal graft on the right, now status post successful thrombolysis. Vascular surgery service care appreciated. Complicated by left retroperitoneal hematoma, stabilized. Low- dose heparin drip with no bolus as per vascular surgery. Underlying history of AFib. Pulmonary: No acute issues. Underlying history of COPD. Renal: No acute issues. Endo: No acute issues. GI: No acute issues. ID: No acute issues Heme/Onc: Acute blood loss secondary to retroperitoneal hematoma. Hemoglobin stabilized. Require total of 3 units of packed red blood cell. Continue to monitor hemoglobin level. Psych: No acute issues. Miscellaneous: No acute issues. Prophylaxis: Heparin drip Diet: Regular Quality Stroke Does the patient have a stroke diagnosis?: No VTE Prior VTE?: No VTE Risk Level:: Surgical - high VTE Device Contraindication: N/A - Device Ordered VTE Drug Contraindication: N/A - Med Ordered
--- NOTE | 2024-01-10 09:27 | ECG_ITS ---
Test Reason : check rthym Blood Pressure : / mmHG Vent. Rate : 078 BPM Atrial Rate : 078 BPM P-R Int : 140 ms QRS Dur : 140 ms QT Int : 414 ms P-R-T Axes : 091 002 147 degrees QTc Int : 471 ms Sinus rhythm with Premature supraventricular complexes Left bundle branch block Abnormal ECG When compared with ECG of 03-AUG-2023 13:21, QRS axis Shifted right T wave inversion now evident in Lateral leads Referred By: Sawyer Case Electronically Signed By:Khalif Ferrer
--- NOTE | 2024-01-10 09:30 | P.PNVS_ITS ---
Subjective Subjective Date of Service: 01/10/24 Interval history: Zan is doing only okay this morning. He continues to endorse generally not feeling well. He states his back is sore from lying down. He is not sleeping or eating well. He states he is drinking okay. He is endorsing pins and needles feeling in his right foot and has had decreased sensation in the right foot, starting since last night. He is not on the pressors, as his blood pressure has stabilized. He did require 3 units of packed red blood cells last night. His hemoglobin went from 7.7-8.0 this morning. Physical Exam Vital Signs: Vital Signs: Last Vital Signs Temp 98.4 F 01/10/24 08:00 Pulse 85 01/10/24 08:25 Resp 20 01/10/24 08:00 BP 143/67 H 01/10/24 08:25 Pulse Ox 97 01/10/24 08:00 O2 Del Method Room Air 01/10/24 08:00 O2 Flow Rate 2 01/08/24 09:15 BMI result Body Mass Index 28.7 Const: Other: Pale appearing General: comfortable, no acute distress and tired appearing Orientation/consciousness: patient oriented x3 HEENT: Ears: hearing grossly normal bilaterally Resp: Effort & Inspection: normal respiratory effort and able to speak in complete sentences Auscultation: clear to auscultation bilaterally Cardio: Rate: regular rate Rhythm: regular rhythm Heart sounds: S1 normal heart sound present and S2 normal heart sound present Bruits: no abdo naina aortic bruits, no carotid bruits, no femoral bruits and no renal bruits GI: Palpation (GI): No Abdominal aortic bruit present Neuro: General: patient oriented x3 Cranial nerves: Yes CN's II-XII intact bilaterally Extrem: Other: Right foot: Still warm to the touch. Decreased sensation in the toes. Palpable DP pulses. Progress Note: A&P Assessment and plan (1) Peripheral arterial disease: Status: Acute Assessment and Plan: Zan is status post thrombolysis with tPA and heparin on 01/06. His postop course has been complicated by a retroperitoneal hemorrhage, which has required pressors which he is now off and 3 units of packed red blood cells. His hemoglobin last night was 7.7 and has only increased to 8.0 this morning. He will likely need at least 1 more inpatient night stay. After discussion with the conference center manager, he will be moved up to the med/surg floor later today if he remains stable. We will continue to monitor. If there are any questions or comments, please do not hesitate to reach out to us. Time Spent With Patient Time: Total time managing care of this patient today _30___ minutes. Procedures Date of Service Date of Service: 01/10/24 Quality Stroke Does the patient have a stroke diagnosis?: No VTE Prior VTE?: No VTE Risk Level:: Surgical - high VTE Device Contraindication: N/A - Device Ordered VTE Drug Contraindication: N/A - Med Ordered
[2024-01-10] MEDS: Sennosides/Docusate Sodium TABLET 1 TAB PO (09:39)
--- NOTE | 2024-01-10 10:52 | MHC.CM.PN ---
Pt will transfer to [facility] today for continued anticoagulation to occluded stent. Extremity showing signs of improved profusion. Will refer pt to [facility] should he require additional assessment at d/c. Plan is to return to home with family transportation and support. CM to follow.
[2024-01-10] MEDS: HYDROmorphone HCl 0.5 MG/0.5 ML SYRINGE IVPUSH (11:02)
[2024-01-10 11:13] LABS: PTT Heparin Drip 80.2 SEC (53-77.9)
[2024-01-10 12:49] LABS: ACT 203 Celite s (79-173)
[2024-01-10 12:49] LABS: ACT 109 Celite s (79-173)
--- NOTE | 2024-01-10 14:05 | P.CDIM_ITS ---
PROVIDER RESPONSE TEXT: To clarify, the appropriate diagnosis supported by the clinical indicators: Hemorrhagic Shock QUERY TEXT: PHYSICIAN'S DOCUMENTATION REQUEST Date of Query: 01/10/2024 01:57 PM EST Patient Name: Zan Encinas Admit Date: 01/07/2024 Dear Sawyer Case MD, A review of the medical record indicates additional documentation may be needed. Please review below and update the documentation accordingly. Documentation in the medical record includes administration of Levophed Clinical Indicators: Per Critical Care Progress Note 01/09/24: with development of postprocedure left-sided retroperitoneal hematoma requiring pressor support Please provide the diagnosis(es) associated with the medication listed above Hemorrhagic Shock Other shock, please specify Other (explain) Clinically unable to determine (explain) Thank you, Zeinab Prince RN Use of terms such as suspected, likely, concern for, or probable (associated with a specific diagnosi s that is being evaluated, monitored, or treated as if it exists) are acceptable and can be coded in the inpatient se tting, when documented at the time of discharge. Please use your independent medical judgment in providing your response. THIS QUERY IS PART OF THE PERMANENT MEDICAL RECORD
--- NOTE | 2024-01-10 14:19 | HO.WOUND ---
Wound Consult: Initial 63yr old? [place] admitted [place] [facility] [place] - See progress notes and H&P for detailed history.? Wound consult placed for Right Great Toe Wound.? Patient agreeable to assessment and photo documentation.? Patient is currently followed by Vascular Surgery team this admission. D/C plan is follow up outpt with [facility] [place] [facility]. Right Great Toe Etiology: Arterial Wound ??Present on Admission Measurements: 1.4cm x 1.6cm x 0.2cm Wound Bed: central soft black eschar with moist yellow slough edges Drainage / Odor: None noted Edges: ? unattached Lucinda wound: ? pink erythema noted - remains blanchable Pain: denies at this time Goals of Treatment: ? Iodosorb to for biofilm treatment, antimicrobial properties and moisture management Recommendations: 1. Turn and Reposition every 2 hours and as needed for patient comfort.? Use pillows or wedges to support off loading positions. 2. Off Load all bony prominences with use of pillows and heel boots if needed.? Apply Preventative foams where needed. ? 3. Monitor for incontinence and moisture control, use barrier creams when needed for prevention and treatment. 4. Provide adequate and supplemental nutrition.? 5. Order low air loss mattress. 6. When applicable maintain blood glucose levels per Providers order. 7. Right Great Toe - Cleane with NS, pat dry. Apply Iodosorb to wound bed cover with gauze and tape. ?Change every other day to start, note the product will be applied brown and over the course of time as the Betadine is absorbed into the wound bed the color will change to yellow / cream signifying time to replace the product.?Iodosorb tube left at bedside available from wound care nurse. Recommend Dr. Knott Vascular Surgeon for outpatient follow up.? His office is located at [address] [place] [address] [id number], [place] [address], call for an appointment at time of discharge [phone] Re-consult wound care Nurse for wound deterioration or wound changes.
[2024-01-10] MEDS: Omeprazole 40 MG CAPSULE.DR PO (16:21)
[2024-01-10 18:35] LABS: MANUAL DIFF FLAG NO
[2024-01-10 19:04] LABS: Basophils Percent Auto 0.2 % (0-2); Eosinophils Percent Auto 0.2 % (0-4); Imm Gran Abs Auto 0.14 X10*3/uL (0.00-0.03); Imm Gran Pct Auto 0.8 % (0.0-0.4); Lymphocytes Absolute Auto 0.8 X10*3/uL (1.2-4.9); Lymphocytes Percent Auto 4.7 % (20-40); Mean Corpuscular HGB Conc 35.2 g/dl (31.0-36.0); Mean Corpuscular Hemoglobin 32.7 pg (27.0-33.0); Mean Corpuscular Volume 92.9 fL (80.0-98.0); Mean Platelet Volume 10.1 fL (9.4-12.4); Monocytes Absolute Auto 1.4 X10*3/uL (0.1-1.2); Monocytes Percent Auto 7.8 % (2-11); Neutrophils Absolute Auto 15.2 x10*3/uL (2.0-8.3); Neutrophils Percent Auto 86.3 % (45-73); Platelet Count 296 X10*3/uL (160-400); Red Blood Count 1.13 X10*6/uL (4.60-5.80); Red Cell Distribution Width 14.5 % (11.0-16.0); White Blood Count 17.6 X10*3/uL (4.8-10.8)
[2024-01-10 19:18] LABS: Hematocrit 10.5 % (42.0-52.0); Hemoglobin 3.7 g/dl (14.0-18.0)
--- NOTE | 2024-01-10 19:18 | PM.EVENT ---
Event Note Date of Service: 01/10/24 Event Note: Nurse reported heart rate in the 180s which lasted for 3 minutes. Discussed with Cardiology, concern for AFib/flutter. Patient's hemoglobin 3.7. Repeat hemoglobin 3.3. Blood pressure initially stable but trending down. Extensive discussion with Dr olmos and Dr. Case, ICU and patient to be transferred to ICU for further monitoring. CT abdomen/pelvis with contrast pending. Time Spent With Patient Time: Total time managing care of this patient today ____ minutes.
[2024-01-10] MEDS: Norepinephrine Bitartrate/D5W 8 MG/250 ML PLAST..BAG 9.01 MG IVCONT (19:45)
--- NOTE | 2024-01-10 19:58 | PC.NURSE ---
1942 Heparin drip paused per MD, witnessed with secondary RN
[2024-01-10 20:00] LABS: Hemoglobin 3.3 g/dl (14.0-18.0)
[2024-01-10 20:01] LABS: Hematocrit 9.9 % (42.0-52.0)
--- NOTE | 2024-01-10 20:07 | PC.NURSE ---
Patient at 18:53 heart rate into the 160s for 3 minutes, diaphoretic. vital signs obtained temp 98F, HR 115, BP 134/60, O2 97% on RA. Received critical call at 19:15 Hgb 3.7 and Hct 10.5. priority texted Dr. Menendez and Dr. Payton. Orders for 4 units RBCs placed STAT. Patient transferred to ICU.
[2024-01-10] MEDS: iohexoL 350 MG/ML 100 ML INFUS..BTL IV (20:18)
[2024-01-10] MEDS: iohexoL 350 MG/ML 100 ML INFUS..BTL 85 ML IV (20:21)
--- NOTE | 2024-01-10 20:42 | P.PNGS_ITS ---
Subjective Subjective Date of Service: 01/11/24 Interval history: called as coverage for Dr Knott pt had undergone undergone thrombolysis with TPA on Jan 06 for occluded fempop bypass graft has had multiple failed bypass in the past developed large retroperitoneal hematoma Hg had dropped to 7-8 on Jan 06 from baseline of around 12 was transfused 3 units Hg this AM was 7. pt transferred out of ICU however, tonight, pt was tachycardic, diaphoretic Hg 3.7, repeated - 3.3 transferred to ICU gietting pRBCS now on low dose pressors Physical Exam 2 Vital Signs: Vital Signs: Last Vital Signs Temp 98.4 F 01/10/24 19:46 Pulse 120 H 01/10/24 20:02 Resp 25 H 01/10/24 20:02 BP 120/54 L 01/10/24 20:02 Pulse Ox 99 01/10/24 20:00 O2 Del Method Room Air 01/10/24 20:00 O2 Flow Rate 2 01/08/24 09:15 BMI result Body Mass Index 28.7 Const: Other: Some shortness of breath Resp: Other: Some shortness of breath Cardio: Rate: tachycardic GI: Other: No obvious ecchymosis, no obvious hematoma Palpation (GI): Soft to palpation Objective Data Active Medications Acetaminophen (Acetaminophen 325 Mg Tablet) 650 mg PO Q4H PRN PRN Reason: Pain, Mild (Pain Scale 1-3) Last Admin: 01/08/24 19:56 Dose: 650 mg Documented By: DAVID Albuterol Sulfate (Albuterol Sulfate (0.083%) 2.5 Mg/3 Ml Vial.Neb) 2.5 mg INHALE Q4H PRN PRN Reason: Shortness of Breath/Wheezing Last Admin: 01/09/24 05:04 Dose: 2.5 mg Documented By: JOANA Atorvastatin Calcium (Atorvastatin Calcium 10 Mg Tablet) 10 mg PO DAILY [facility] Last Admin: 01/10/24 08:22 Dose: 10 mg Documented By: MARIELA Heparin Sodium/Sodium Chloride (Heparin Sodium,Porcine/1/2ns) 25,000 unit in 250 mls @ 0 mls/hr IVCONT .Q0M [facility]; Protocol Last Titration: 01/10/24 19:43 Dose: 0 units/kg/hr, 0 mls/hr Documented By: DENNYS Co-signed By: DOMINIQUE Lactated Ringer's (Lr) 1,000 mls @ 999 mls/hr IV .Q1H1M [facility] Stop: 01/10/24 21:30 Norepinephrine Bitartrate (Levophed) 8 mg in 250 mls @ 0 mls/hr IVCONT .Q0M [facility]; Protocol Morphine Sulfate (Morphine Sulfate 4 Mg/Ml Cartridge) 4 mg IVPUSH Q2H PRN; Protocol PRN Reason: Pain, Severe (Pain Scale 7-10) Last Admin: 01/10/24 10:29 Dose: 4 mg Documented By: MARIELA Omeprazole (Omeprazole 40 Mg Capsule.Dr) 40 mg PO BID@0630,1630 [facility] Last Admin: 01/10/24 16:21 Dose: 40 mg Documented By: CHINA Ondansetron HCl (Ondansetron Hcl 4 Mg/2 Ml Vial) 4 mg IVPUSH Q4H PRN PRN Reason: Nausea and Vomiting Last Admin: 01/08/24 11:25 Dose: 4 mg Documented By: MAYA Oxycodone HCl (Oxycodone Hcl Immed Release 15 Mg Tablet) 15 mg PO Q4H PRN PRN Reason: Pain, Moderate(Pain Scale 4-6) Last Admin: 01/10/24 03:53 Dose: 15 mg Documented By: KYLE Polyethylene Glycol (Polyethylene Glycol 3350 17 Gm Powd.Pack) 17 gm PO DAILY PRN PRN Reason: Constipation Senna/Docusate Sodium (Sennosides/Docusate Sodium Tablet) 1 tab PO DAILY [facility] Last Admin: 01/10/24 09:39 Dose: 1 tab Documented By: MARIELA Labs 01/11/24 13:42 01/11/24 04:33 Labs: Laboratory Results - last 24 hr 01/08/24 01/08/24 01/08/24 08:46 08:55 11:22 MCV MCH MCHC RDW Plt Count MPV Immature Gran % (Auto) Neut % (Auto) Lymph % (Auto) [place] % (Auto) Eos % (Auto) Baso % (Auto) Lymph # (Auto) [place] # (Auto) Eos # (Auto) Baso # (Auto) Abs Immat Gran (auto) Absolute Neuts (auto) Absolute Nucleated RBC Nucleated RBC % (auto) Hold Purple Top PT INR aPTT Heparin Protocol Activated Clotting Time 109 203 H Anion Gap Estim Creat Clear Calc Estimated GFR Random Glucose Calcium Phosphorus Magnesium Albumin Blood Type O Positive Antibody Screen NEGATIVE Crossmatch See Detail 01/09/24 01/09/24 01/10/24 19:48 21:23 03:49 MCV MCH MCHC RDW Plt Count MPV Immature Gran % (Auto) Neut % (Auto) Lymph % (Auto) [place] % (Auto) Eos % (Auto) Baso % (Auto) Lymph # (Auto) [place] # (Auto) Eos # (Auto) Baso # (Auto) Abs Immat Gran (auto) Absolute Neuts (auto) Absolute Nucleated RBC Nucleated RBC % (auto) Hold Purple Top SEE NOTE PT INR aPTT Heparin Protocol 55.2 D 44.5 L Activated Clotting Time Anion Gap 15 Estim Creat Clear Calc 92.1 Estimated GFR > 60 Random Glucose 99 Calcium 8.9 Phosphorus 3.0 Magnesium 2.2 Albumin Blood Type Antibody Screen Crossmatch 01/10/24 01/10/24 01/10/24 04:59 10:30 17:49 MCV 92.2 92.9 MCH 31.0 32.7 MCHC 33.6 35.2 RDW 14.6 14.5 Plt Count 129 L 296 D MPV 9.3 L 10.1 Immature Gran % (Auto) 0.5 H 0.8 H Neut % (Auto) 72.1 86.3 H Lymph % (Auto) 14.0 L 4.7 L [place] % (Auto) 11.4 H 7.8 Eos % (Auto) 1.6 0.2 Baso % (Auto) 0.4 0.2 Lymph # (Auto) 1.3 0.8 L [place] # (Auto) 1.0 1.4 H Eos # (Auto) 0.2 0.0 Baso # (Auto) 0.0 0.0 Abs Immat Gran (auto) 0.05 H 0.14 H Absolute Neuts (auto) 6.6 15.2 H Absolute Nucleated RBC 0.000 0.000 Nucleated RBC % (auto) 0.0 0.0 Hold Purple Top PT 12.1 INR 1.0 aPTT Heparin Protocol 80.2 H D 66.0 Activated Clotting Time Anion Gap 12 Estim Creat Clear Calc 100.5 Estimated GFR > 60 Random Glucose 102 Calcium 9.0 Phosphorus 2.8 Magnesium 2.0 Albumin 3.5 Blood Type Antibody Screen Crossmatch Procedures Date of Service Date of Service: 01/11/24 Progress Note: A&P Assessment and plan (1) Retroperitoneal hematoma: Status: Acute Assessment and Plan: With significant drop in hemoglobin Case reviewed with vascular service in [place] Dr. Hauser: No surgical intervention at this time Aggressively transfused with blood products Correct coagulopathy if appropriate Stop any anticoagulation including heparin Unfortunately, this may be at the expense of the graft occluding and patient may the limb support hemodynamically including pressors Retroperitoneum hematoma should tamponade after stopping heparin/ anticoagulation I will review case with IR tomorrow as well Discussed above with ICU team I spent over an hour coordinating care for this patient Time Spent With Patient Time: Total time managing care of this patient today ____ minutes. Quality Stroke Does the patient have a stroke diagnosis?: No VTE Prior VTE?: No VTE Risk Level:: Surgical - high VTE Device Contraindication: N/A - Device Ordered VTE Drug Contraindication: N/A - Med Ordered
[2024-01-10] MEDS: Lactated Ringers 1,000 ML 999 ML IV (21:00)
[2024-01-10 21:05] LABS: Alanine Aminotransferase 15 U/L (0-40); Albumin Level 3.7 g/dL (3.5-5.0); Alkaline Phosphatase 55 U/L (39-117); Anion Gap 19 (12-20); Aspartate Amino Transferase 32 U/L (5-37); Bilirubin Total 0.9 mg/dL (0.0-1.0); Blood Urea Nitrogen 23 mg/dL (9-16); Calcium 8.4 mg/dL (8.4-10.2); Carbon Dioxide 20 mmol/L (22-29); Chloride 101 mmol/L (96-108); Creatinine Clr Calc Pharmacy 65.5; Estimated Glomerular Filt Rate 53; Glucose Random 182 mg/dL (60-115); Potassium 4.9 mmol/L (3.3-5.1); Sodium 135 mmol/L (135-145); Total Protein 5.7 g/dL (6.5-8.0)
[2024-01-10 21:17] LABS: VBG Base Excess -6.7 mmol/L; VBG HCO3 16 mmol/L (22-26); VBG pCO2 25 mmHg; VBG pH 7.42 (7.32-7.43); VBG pO2 76 mmHg
[2024-01-10 21:18] LABS: Venous Blood Gas Refer to POC result
[2024-01-10 21:24] LABS: Lactic Acid 7.8 mmol/L (0.5-2.0)
[2024-01-10] MEDS: Calcium Gluconate/NaCl,Iso-Osm 1 GM/50 ML PLAST..BAG IV (21:29)
--- NOTE | 2024-01-10 21:43 | P.PNCC_ITS ---
Critical Care Event Note Summary Date of Service: 01/10/24 Code activated: No Narrative: This case had a high probability of a clinically significant, sudden, or life threatening deterioration of this patient's condition which required my full and direct attention, intervention and personal management. Critical Care Time (minutes): 60 Comment: The patient is a 63-year-old male with underlying COPD, peripheral arterial disease, splenic vein thrombosis, AFib, BPH with prior right-sided popliteal bypasses with occlusion, now status post placement of intra-arterial tPA catheter by vascular surgery Dr Knott and monitored by ICU team.? On 01/08/2024 status post to repeat fluoroscopy with demonstration of improved graft patency, but with development of postprocedure left-sided retroperitoneal hematoma requiring pressor support and 3units RBC. Heparin drip was stopped on 01/08/24 but resumed on 01/09/24 by vascular surgery. ? Hemoglobin stabilized,? vasopressors off since? the morning of 01/09/2024, patient transfer to medical floor earlier today.? Tonight, the patient became tachycardic to 180s which lasted approximately 3 minutes, ? H&H from 1749? noted to be 3.7/10.5,? at this time the patient?s blood pressure? was stable,? but continued to trend down.? Om my assessment,? patient noted to be more pale than before, BP 90/56.? Repeat hemoglobin confirmed? hemoglobin was 3.3/9.9. Heparin drip was held.? ? Hospital medicine physician contacted General surgery, Dr Payton, who is covering for Dr Knott, and informed of change in status and came to bedside ? 4 units of RBC,? 1 FFP, 1 platelet was ordered.? Patient was taken to CT scan. CT abdomen with contrast showed Large left renal subcapsular hematoma, increased in size when compared to the prior examination on 01/08/24, now measuring up to 17.5 cm (previously 3.0 cm).? Redemonstration of a large left retroperitoneal hematoma, similar in size when compared to the prior examination. Dr Payton notified of the CT findings. He contacted [facility] and reported patient was declined for transfer. Advises to cont blood products and cont to hold heparin?? Elevated lactic of 7.8, due to hemorrhagic shock, no evidence of septic shock.? Patient be transferred to ICU for hemodynamic monitoring hemorrhagic shock Attending Dr Case aware of plan
[2024-01-10] MEDS: HYDROmorphone HCl 1 MG/ML SYRINGE IVPUSH (22:24)
[2024-01-10 23:01] LABS: Reflex Lactate? Lactic Acid Added
[2024-01-10 23:49] LABS: ~Lactic Acid-LAB USE ONLY 1.9 mmol/L (0.5-2.0)
[2024-01-11] VITALS (33 sets, daily range): BP systolic 114–148; BP diastolic 59–103; PULSE 77–104; RESP 16–25; TEMP 36.4–37.4; O2SAT 93–98; BMI 28.7
[2024-01-11] MEDS: cefTRIAXone sodium 2 GM VIAL IVPUSH ×2 (00:24→23:02)
[2024-01-11 01:17] LABS: VBG HCO3 27 mmol/L (22-26); VBG pCO2 35 mmHg; VBG pH 7.49 (7.32-7.43); VBG pO2 57 mmHg
[2024-01-11 01:21] LABS: Basophils Percent Auto 0.2 % (0-2); Imm Gran Abs Auto 0.16 X10*3/uL (0.00-0.03); Imm Gran Pct Auto 0.9 % (0.0-0.4); Lymphocytes Absolute Auto 1.1 X10*3/uL (1.2-4.9); Lymphocytes Percent Auto 5.8 % (20-40); MANUAL DIFF FLAG SCAN; Mean Corpuscular HGB Conc 35.8 g/dl (31.0-36.0); Mean Corpuscular Hemoglobin 31.2 pg (27.0-33.0); Mean Platelet Volume 9.1 fL (9.4-12.4); Monocytes Absolute Auto 2.3 X10*3/uL (0.1-1.2); Monocytes Percent Auto 12.8 % (2-11); Neutrophils Absolute Auto 14.6 x10*3/uL (2.0-8.3); Neutrophils Percent Auto 80.3 % (45-73); Platelet Count 197 X10*3/uL (160-400); Red Blood Count 2.15 X10*6/uL (4.60-5.80); Red Cell Distribution Width 14.1 % (11.0-16.0); SCAN SMEAR FLAG 1; White Blood Count 18.2 X10*3/uL (4.8-10.8)
[2024-01-11 01:22] LABS: Hemoglobin 6.7 g/dl (14.0-18.0)
[2024-01-11 01:23] LABS: Hematocrit 18.7 % (42.0-52.0)
[2024-01-11 01:46] LABS: SLIDE REVIEW VERIFIED
[2024-01-11] MEDS: HYDROmorphone HCl 1 MG/ML SYRINGE IVPUSH ×2 (01:51→05:05)
[2024-01-11 02:30] LABS: Venous Blood Gas Refer to POC result
[2024-01-11 04:39] LABS: VBG Base Excess 3.7 mmol/L; VBG HCO3 28 mmol/L (22-26); VBG pCO2 42 mmHg; VBG pH 7.42 (7.32-7.43); VBG pO2 35 mmHg
[2024-01-11 04:40] LABS: Venous Blood Gas Refer to POC result
[2024-01-11 04:41] LABS: Basophils Percent Auto 0.2 % (0-2); Hematocrit 23.4 % (42.0-52.0); Hemoglobin 8.4 g/dl (14.0-18.0); Imm Gran Abs Auto 0.11 X10*3/uL (0.00-0.03); Imm Gran Pct Auto 0.7 % (0.0-0.4); Lymphocytes Absolute Auto 1.3 X10*3/uL (1.2-4.9); Lymphocytes Percent Auto 8.9 % (20-40); MANUAL DIFF FLAG SCAN; Mean Corpuscular HGB Conc 35.9 g/dl (31.0-36.0); Mean Corpuscular Hemoglobin 31.3 pg (27.0-33.0); Mean Corpuscular Volume 87.3 fL (80.0-98.0); Mean Platelet Volume 9.1 fL (9.4-12.4); Monocytes Percent Auto 13.5 % (2-11); Neutrophils Absolute Auto 11.4 x10*3/uL (2.0-8.3); Neutrophils Percent Auto 76.7 % (45-73); Platelet Count 192 X10*3/uL (160-400); Red Blood Count 2.68 X10*6/uL (4.60-5.80); SCAN SMEAR FLAG 1; White Blood Count 14.9 X10*3/uL (4.8-10.8)
[2024-01-11 04:59] LABS: Albumin Level 3.6 g/dL (3.5-5.0); Anion Gap 15 (12-20); Blood Urea Nitrogen 26 mg/dL (9-16); Calcium 9.2 mg/dL (8.4-10.2); Carbon Dioxide 24 mmol/L (22-29); Chloride 101 mmol/L (96-108); Creatinine Clr Calc Pharmacy 75.6; Estimated Glomerular Filt Rate > 60; Glucose Random 129 mg/dL (60-115); Magnesium 2.2 mg/dL (1.6-2.6); Phosphorus 4.3 mg/dL (2.7-4.5); Potassium 4.6 mmol/L (3.3-5.1); Sodium 135 mmol/L (135-145)
[2024-01-11] MEDS: Pantoprazole Sodium 40 MG/10 ML VIAL IVPUSH (05:01)
--- NOTE | 2024-01-11 05:49 | PC.NURSE ---
At approx 1930- AIRCRAFT MAINTENANCE TECHNICIAN not called but ICU consulted. BOARD MIXER TENDER Mirian and this RN to pt bedside on Med/Tele. Upon initial assessment- pt A&Ox4, drowsy, pale; HR 110-120s, on tele, SBP 90s, MAP < 65, levophed ordered and started per APR. Pt taken to CT scan stat at approx 2014 - provider aware of results. Pt transferred to ICU at approx 2029. Given total of 6 units pRBC, 2 units FFP, and 1 unit platelets- tolerated well with no s/s of transfusion reaction. Saturating well on room air. C/o 10/10 back pain- PRN dilaudid 1 mg IVP q2hr ordered and given per APR. Voiding well in urinal. Tolerating small amount of ice chips. Skin overall intact- previous surgical site, C/D/I, JASON. Right DP pulse present via doppler, +CSM. Repositioned in bed q2hr, bed locked in lowest position and alarm on, call le in reach.
--- NOTE | 2024-01-11 08:01 | PM.PNGS ---
Subjective Subjective Date of Service: 01/11/24 Interval history: More alert No further events Off pressors Transfused 4 units Physical Exam Vital Signs: Vital Signs: Last Vital Signs Temp 97.5 F 01/11/24 03:47 Pulse 85 01/11/24 07:00 Resp 21 H 01/11/24 07:00 BP 121/91 H 01/11/24 07:00 Pulse Ox 97 01/11/24 07:00 O2 Del Method Room Air 01/11/24 07:00 O2 Flow Rate 2 01/08/24 09:15 BMI result Body Mass Index 28.7 Const: Other: Says he feels ?okay? General: comfortable and no acute distress Resp: Effort & Inspection: normal respiratory effort Cardio: Rate: regular rate GI: Palpation (GI): Soft to palpation, not firm, nontender and no guarding Extrem: Other: Both legs warm to touch Objective Data Active Medications Acetaminophen (Acetaminophen 325 Mg Tablet) 650 mg PO Q4H PRN PRN Reason: Pain, Mild (Pain Scale 1-3) Last Admin: 01/08/24 19:56 Dose: 650 mg Documented By: DAVID Albuterol Sulfate (Albuterol Sulfate (0.083%) 2.5 Mg/3 Ml Vial.Neb) 2.5 mg INHALE Q4H PRN PRN Reason: Shortness of Breath/Wheezing Last Admin: 01/09/24 05:04 Dose: 2.5 mg Documented By: JOANA Atorvastatin Calcium (Atorvastatin Calcium 10 Mg Tablet) 10 mg PO DAILY [facility] Last Admin: 01/10/24 08:22 Dose: 10 mg Documented By: MARIELA Ceftriaxone Sodium (Ceftriaxone Sodium 2 Gm Vial) 2 gm IVPUSH Q24H [facility] Last Admin: 01/11/24 00:24 Dose: 2 gm Documented By: SARTHAK Hydromorphone HCl (Hydromorphone Hcl 1 Mg/Ml Syringe) 1 mg IVPUSH Q2H PRN; Protocol PRN Reason: Pain, Severe (Pain Scale 7-10) Last Admin: 01/11/24 05:05 Dose: 1 mg Documented By: SARTHAK Norepinephrine Bitartrate (Levophed) 8 mg in 250 mls @ 0 mls/hr IVCONT .Q0M [facility]; Protocol Last Titration: 01/10/24 22:19 Dose: 0 mcg/kg/min, 0 mls/hr Documented By: SARTHAK Ondansetron HCl (Ondansetron Hcl 4 Mg/2 Ml Vial) 4 mg IVPUSH Q4H PRN PRN Reason: Nausea and Vomiting Last Admin: 01/08/24 11:25 Dose: 4 mg Documented By: MAYA Oxycodone HCl (Oxycodone Hcl Immed Release 15 Mg Tablet) 15 mg PO Q4H PRN PRN Reason: Pain, Moderate(Pain Scale 4-6) Last Admin: 01/10/24 03:53 Dose: 15 mg Documented By: KYLE Pantoprazole Sodium (Pantoprazole Sodium 40 Mg/10 Ml Vial) 40 mg IVPUSH BID@0630,1630 [facility] Last Admin: 01/11/24 05:01 Dose: 40 mg Documented By: SARTHAK Polyethylene Glycol (Polyethylene Glycol 3350 17 Gm Powd.Pack) 17 gm PO DAILY PRN PRN Reason: Constipation Senna/Docusate Sodium (Sennosides/Docusate Sodium Tablet) 1 tab PO DAILY [facility] Last Admin: 01/10/24 09:39 Dose: 1 tab Documented By: MARIELA Sodium Chloride (0.9 % Sodium Chloride Flush 3 Ml Syringe) 3 ml IVFLUSH QSHIFT [facility] Last Admin: 01/10/24 23:07 Dose: Not Given Documented By: SARTHAK Non-Admin Reason: IV Running Labs 01/11/24 13:42 01/11/24 04:33 Labs: Laboratory Results - last 24 hr 01/08/24 01/08/24 01/08/24 08:46 08:55 11:22 MCV MCH MCHC RDW Plt Count MPV Immature Gran % (Auto) Neut % (Auto) Lymph % (Auto) [place] % (Auto) Eos % (Auto) Baso % (Auto) Lymph # (Auto) [place] # (Auto) Eos # (Auto) Baso # (Auto) Abs Immat Gran (auto) Absolute Neuts (auto) Absolute Nucleated RBC Nucleated RBC % (auto) Smear Tech's Comments aPTT Heparin Protocol Activated Clotting Time 109 203 H VBG pH VBG pCO2 VBG pO2 VBG HCO3 VBG O2 Saturation VBG Base Excess Anion Gap Estim Creat Clear Calc Estimated GFR Random Glucose Lactic Acid Lactic Acid F/U @ 2Hr Calcium Phosphorus Magnesium Total Bilirubin AST ALT Alkaline Phosphatase Total Protein Albumin Blood Type O Positive Antibody Screen NEGATIVE Crossmatch See Detail 01/10/24 01/10/24 01/10/24 10:30 17:49 19:44 MCV 92.9 MCH 32.7 MCHC 35.2 RDW 14.5 Plt Count 296 D MPV 10.1 Immature Gran % (Auto) 0.8 H Neut % (Auto) 86.3 H Lymph % (Auto) 4.7 L [place] % (Auto) 7.8 Eos % (Auto) 0.2 Baso % (Auto) 0.2 Lymph # (Auto) 0.8 L [place] # (Auto) 1.4 H Eos # (Auto) 0.0 Baso # (Auto) 0.0 Abs Immat Gran (auto) 0.14 H Absolute Neuts (auto) 15.2 H Absolute Nucleated RBC 0.000 Nucleated RBC % (auto) 0.0 Smear Tech's Comments aPTT Heparin Protocol 80.2 H D 66.0 Activated Clotting Time VBG pH VBG pCO2 VBG pO2 VBG HCO3 VBG O2 Saturation VBG Base Excess Anion Gap 19 Estim Creat Clear Calc 65.5 Estimated GFR 53 Random Glucose 182 H Lactic Acid Lactic Acid F/U @ 2Hr Calcium 8.4 D Phosphorus Magnesium Total Bilirubin 0.9 AST 32 ALT 15 Alkaline Phosphatase 55 Total Protein 5.7 L Albumin 3.7 Blood Type Antibody Screen Crossmatch 01/10/24 01/10/24 01/10/24 20:55 21:12 23:20 MCV MCH MCHC RDW Plt Count MPV Immature Gran % (Auto) Neut % (Auto) Lymph % (Auto) [place] % (Auto) Eos % (Auto) Baso % (Auto) Lymph # (Auto) [place] # (Auto) Eos # (Auto) Baso # (Auto) Abs Immat Gran (auto) Absolute Neuts (auto) Absolute Nucleated RBC Nucleated RBC % (auto) Smear Tech's Comments aPTT Heparin Protocol Activated Clotting Time VBG pH 7.42 VBG pCO2 25 VBG pO2 76 VBG HCO3 16 L VBG O2 Saturation TNP VBG Base Excess -6.7 Anion Gap Estim Creat Clear Calc Estimated GFR Random Glucose Lactic Acid 7.8 H* Lactic Acid F/U @ 2Hr 1.9 Calcium Phosphorus Magnesium Total Bilirubin AST ALT Alkaline Phosphatase Total Protein Albumin Blood Type Antibody Screen Crossmatch 01/11/24 01/11/24 01/11/24 01:05 01:10 04:28 MCV 87.0 D MCH 31.2 MCHC 35.8 RDW 14.1 Plt Count 197 D MPV 9.1 L Immature Gran % (Auto) 0.9 H Neut % (Auto) 80.3 H Lymph % (Auto) 5.8 L [place] % (Auto) 12.8 H Eos % (Auto) 0.0 Baso % (Auto) 0.2 Lymph # (Auto) 1.1 L [place] # (Auto) 2.3 H Eos # (Auto) 0.0 Baso # (Auto) 0.0 Abs Immat Gran (auto) 0.16 H Absolute Neuts (auto) 14.6 H Absolute Nucleated RBC 0.000 Nucleated RBC % (auto) 0.0 Smear Tech's Comments VERIFIED aPTT Heparin Protocol Activated Clotting Time VBG pH 7.49 H 7.42 VBG pCO2 35 42 VBG pO2 57 35 VBG HCO3 27 H 28 H VBG O2 Saturation 92.0 62.0 VBG Base Excess 4.0 3.7 Anion Gap Estim Creat Clear Calc Estimated GFR Random Glucose Lactic Acid Lactic Acid F/U @ 2Hr Calcium Phosphorus Magnesium Total Bilirubin AST ALT Alkaline Phosphatase Total Protein Albumin Blood Type Antibody Screen Crossmatch 01/11/24 04:33 MCV 87.3 MCH 31.3 MCHC 35.9 RDW 14.0 Plt Count 192 MPV 9.1 L Immature Gran % (Auto) 0.7 H Neut % (Auto) 76.7 H Lymph % (Auto) 8.9 L [place] % (Auto) 13.5 H Eos % (Auto) 0.0 Baso % (Auto) 0.2 Lymph # (Auto) 1.3 [place] # (Auto) 2.0 H Eos # (Auto) 0.0 Baso # (Auto) 0.0 Abs Immat Gran (auto) 0.11 H Absolute Neuts (auto) 11.4 H Absolute Nucleated RBC 0.000 Nucleated RBC % (auto) 0.0 Smear Tech's Comments aPTT Heparin Protocol Activated Clotting Time VBG pH VBG pCO2 VBG pO2 VBG HCO3 VBG O2 Saturation VBG Base Excess Anion Gap 15 Estim Creat Clear Calc 75.6 Estimated GFR > 60 Random Glucose 129 H Lactic Acid Lactic Acid F/U @ 2Hr Calcium 9.2 D Phosphorus 4.3 Magnesium 2.2 Total Bilirubin AST ALT Alkaline Phosphatase Total Protein Albumin 3.6 Blood Type Antibody Screen Crossmatch Procedures Date of Service Date of Service: 01/11/24 Progress Note: A&P Assessment and plan (1) Retroperitoneal hematoma: Status: Acute Assessment and Plan: Hematoma after tPA, anticoagulation with heparin for occluded graft CT scan last night shows large subcapsular hematoma around left kidney Heparin drip stopped Hemoglobin now much improved Patient looks much better Off pressors Repeat lactate normal Had long discussion with vascular service in [place] last night - no surgical intervention, hold any anticoagulation, follow H&H Right leg warm to touch, does not appear ischemic Follow H&H Time Spent With Patient Time: Total time managing care of this patient today ____ minutes. Quality Stroke Does the patient have a stroke diagnosis?: No VTE Prior VTE?: No VTE Risk Level:: Surgical - high VTE Device Contraindication: N/A - Device Ordered VTE Drug Contraindication: N/A - Med Ordered
[2024-01-11] MEDS: Sennosides/Docusate Sodium TABLET 1 TAB PO (08:40)
[2024-01-11] MEDS: Atorvastatin Calcium 10 MG TABLET PO (08:41)
[2024-01-11] MEDS: 0.9 % Sodium Chloride Flush 3 ML SYRINGE IVFLUSH ×3 (08:41→23:16)
--- NOTE | 2024-01-11 08:58 | HO.VASCPN ---
Subjective Subjective Date of Service: 01/11/24 Interval history: Zan remains stable this morning. He states he is feeling little bit better than he did last night. He remains confused as to what is going on. He had an episode of tachycardia and hypertension last night and was noted to have a hemoglobin of 3.3. He was transfused 4 units of packed red blood cells and his hemoglobin this morning is 8.4. Dr. Payton reached out to [facility] who stated to continue to trend the H&H and does not need any surgical intervention at this time. He was also found on CT of the abdomen a large left renal subcapsular hematoma which is increased in size from 3.0 cm (01/07) to 17.5 cm. The patient was discontinued off of heparin and transferred back to the ICU last night. Physical Exam Vital Signs: Vital Signs: Last Vital Signs Temp 98.4 F 01/11/24 08:00 Pulse 82 01/11/24 08:00 Resp 21 H 01/11/24 08:00 BP 131/74 01/11/24 08:00 Pulse Ox 97 01/11/24 08:00 O2 Del Method Room Air 01/11/24 08:00 O2 Flow Rate 2 01/08/24 09:15 BMI result Body Mass Index 28.7 Const: General: comfortable and no acute distress Orientation/consciousness: patient oriented x3 HEENT: Ears: hearing grossly normal bilaterally Resp: Effort & Inspection: normal respiratory effort and able to speak in complete sentences Auscultation: clear to auscultation bilaterally Cardio: Rate: regular rate Rhythm: regular rhythm Heart sounds: S1 normal heart sound present and S2 normal heart sound present Bruits: no abdominal aortic bruits, no carotid bruits, no femoral bruits and no renal bruits GI: Inspection: Yes distended Palpation (GI): No Abdominal aortic bruit present Neuro: General: patient oriented x3 Cranial nerves: Yes CN's II-XII intact bilaterally Extrem: Other: Right lower extremity: warm to the touch. Palpable DP pulses. Painful foot/lower leg. Decreased sensation in the toes. Progress Note: A&P Assessment and plan (1) Peripheral arterial disease: Status: Acute Assessment and Plan: Zan had an episode of hypotension and tachycardia last night and was found to have a hemoglobin of 3.3. He has since been transfused with 4 units of packed red blood cells; his hemoglobin this morning is 8.4. He states he is feeling a little bit better. His blood pressure and heart rate are stable this morning. His abdomen appears slightly distended this morning but not tender to palpation. He is confused as to what is going on and why his blood levels keep dropping. We did discuss with him that there is a hematoma around his kidney. We discussed that initially this may have been a complication from his angio, complicated by the IV heparin. We will keep him off of the heparin for now. We will continue to monitor and trend his hemoglobin and hematocrit. He will remain in the ICU for now. We will monitor him closely. I discussed with the speeder tender this morning the plan, that Dr. Payton discussed with me. If there are any questions or concerns, please do not hesitate to reach out to us. Time Spent With Patient Time: Total time managing care of this patient today _35___ minutes. Procedures Date of Service Date of Service: 01/11/24 Quality Stroke Does the patient have a stroke diagnosis?: No VTE Prior VTE?: No VTE Risk Level:: Surgical - high VTE Device Contraindication: N/A - Device Ordered VTE Drug Contraindication: N/A - Med Ordered
--- NOTE | 2024-01-11 10:56 | P.PNCC_ITS ---
Subjective Subjective Date of Service: 01/11/24 Interval History: 63-year-old gentleman with underlying COPD, peripheral arterial disease, splenic vein thrombosis, AFib, BPH with prior right-sided popliteal bypasses with occlusion, now status post placement of intra-arterial tPA catheter monitored in the intensive care unit overnight. On 01/08/2024 status post to repeat fluoroscopy with demonstration of improved graft patency, but with development of postprocedure left-sided retroperitoneal hematoma requiring pressor support. Hemoglobin stabilized and patient was transferred to telemetry on 01/10/2024. Overnight with drop in hemoglobin requiring initiation pressor support and transfusion of total of 6 units of packed red blood cells. CT with contrast with no extravasation, but worsening left renal subcapsular hematoma. Discussed with general surgery covering for vascular surgery with no interventions planned at this time. Critical Care Time (minutes): 60 Physical Exam 2 Vital Signs: Vital Signs: Last Vital Signs Temp 98.4 F 01/11/24 08:00 Pulse 80 01/11/24 10:00 Resp 23 H 01/11/24 10:00 BP 127/62 01/11/24 10:00 Pulse Ox 96 01/11/24 10:00 O2 Del Method Room Air 01/11/24 10:00 O2 Flow Rate 2 01/08/24 09:15 BMI result Body Mass Index 28.7 Const: General: no acute distress, alert and awake Eyes: Sclerae: sclerae normal EOM: EOMs intact bilaterally Neck: Neck: Yes no lymphadenopathy, Yes trachea midline and Yes supple Resp: Effort & Inspection: normal respiratory effort and no respiratory distress Auscultation: clear to auscultation bilaterally Cardio: Rate: regular rate Rhythm: regular rhythm Heart sounds: no gallops, no murmurs and no rubs GI: Palpation (GI): Soft to palpation and Other GI palpation findings present ( Nontender) Auscultation: normal bowel sounds Extrem: General: Yes no pedal edema, No clubbing and No cyanosis Objective Data Labs 01/11/24 04:33 01/11/24 04:33 Labs: Laboratory Results - last 24 hr 01/08/24 01/08/24 01/08/24 08:46 08:55 11:22 WBC RBC Hgb Hct MCV MCH MCHC RDW Plt Count MPV Immature Gran % (Auto) Neut % (Auto) Lymph % (Auto) [place] % (Auto) Eos % (Auto) Baso % (Auto) Lymph # (Auto) [place] # (Auto) Eos # (Auto) Baso # (Auto) Abs Immat Gran (auto) Absolute Neuts (auto) Absolute Nucleated RBC Nucleated RBC % (auto) Smear Tech's Comments Smear Path Review aPTT Heparin Protocol Activated Clotting Time 109 203 H VBG pH VBG pCO2 VBG pO2 VBG HCO3 VBG O2 Saturation VBG Base Excess Sodium Potassium Chloride Carbon Dioxide Anion Gap BUN Creatinine Estim Creat Clear Calc Estimated GFR Random Glucose Lactic Acid Lactic Acid F/U @ 2Hr Calcium Phosphorus Magnesium Total Bilirubin AST ALT Alkaline Phosphatase Total Protein Albumin Blood Type O Positive Antibody Screen NEGATIVE Crossmatch See Detail 01/10/24 01/10/24 01/10/24 10:30 17:49 19:44 WBC 17.6 H RBC 1.13 L D Hgb 3.7 L* D 3.3 L* Hct 10.5 L* D 9.9 L* MCV 92.9 MCH 32.7 MCHC 35.2 RDW 14.5 Plt Count 296 D MPV 10.1 Immature Gran % (Auto) 0.8 H Neut % (Auto) 86.3 H Lymph % (Auto) 4.7 L [place] % (Auto) 7.8 Eos % (Auto) 0.2 Baso % (Auto) 0.2 Lymph # (Auto) 0.8 L [place] # (Auto) 1.4 H Eos # (Auto) 0.0 Baso # (Auto) 0.0 Abs Immat Gran (auto) 0.14 H Absolute Neuts (auto) 15.2 H Absolute Nucleated RBC 0.000 Nucleated RBC % (auto) 0.0 Smear Tech's Comments Smear Path Review SEE NOTE aPTT Heparin Protocol 80.2 H D 66.0 Activated Clotting Time VBG pH VBG pCO2 VBG pO2 VBG HCO3 VBG O2 Saturation VBG Base Excess Sodium 135 Potassium 4.9 Chloride 101 Carbon Dioxide 20 L Anion Gap 19 BUN 23 H Creatinine 1.35 Estim Creat Clear Calc 65.5 Estimated GFR 53 Random Glucose 182 H Lactic Acid Lactic Acid F/U @ 2Hr Calcium 8.4 D Phosphorus Magnesium Total Bilirubin 0.9 AST 32 ALT 15 Alkaline Phosphatase 55 Total Protein 5.7 L Albumin 3.7 Blood Type Antibody Screen Crossmatch 01/10/24 01/10/24 01/10/24 20:55 21:12 23:20 WBC RBC Hgb Hct MCV MCH MCHC RDW Plt Count MPV Immature Gran % (Auto) Neut % (Auto) Lymph % (Auto) [place] % (Auto) Eos % (Auto) Baso % (Auto) Lymph # (Auto) [place] # (Auto) Eos # (Auto) Baso # (Auto) Abs Immat Gran (auto) Absolute Neuts (auto) Absolute Nucleated RBC Nucleated RBC % (auto) Smear Tech's Comments Smear Path Review aPTT Heparin Protocol Activated Clotting Time VBG pH 7.42 VBG pCO2 25 VBG pO2 76 VBG HCO3 16 L VBG O2 Saturation TNP VBG Base Excess -6.7 Sodium Potassium Chloride Carbon Dioxide Anion Gap BUN Creatinine Estim Creat Clear Calc Estimated GFR Random Glucose Lactic Acid 7.8 H* Lactic Acid F/U @ 2Hr 1.9 Calcium Phosphorus Magnesium Total Bilirubin AST ALT Alkaline Phosphatase Total Protein Albumin Blood Type Antibody Screen Crossmatch 01/11/24 01/11/24 01/11/24 01:05 01:10 04:28 WBC 18.2 H RBC 2.15 L D Hgb 6.7 L* D Hct 18.7 L* D MCV 87.0 D MCH 31.2 MCHC 35.8 RDW 14.1 Plt Count 197 D MPV 9.1 L Immature Gran % (Auto) 0.9 H Neut % (Auto) 80.3 H Lymph % (Auto) 5.8 L [place] % (Auto) 12.8 H Eos % (Auto) 0.0 Baso % (Auto) 0.2 Lymph # (Auto) 1.1 L [place] # (Auto) 2.3 H Eos # (Auto) 0.0 Baso # (Auto) 0.0 Abs Immat Gran (auto) 0.16 H Absolute Neuts (auto) 14.6 H Absolute Nucleated RBC 0.000 Nucleated RBC % (auto) 0.0 Smear Tech's Comments VERIFIED Smear Path Review aPTT Heparin Protocol Activated Clotting Time VBG pH 7.49 H 7.42 VBG pCO2 35 42 VBG pO2 57 35 VBG HCO3 27 H 28 H VBG O2 Saturation 92.0 62.0 VBG Base Excess 4.0 3.7 Sodium Potassium Chloride Carbon Dioxide Anion Gap BUN Creatinine Estim Creat Clear Calc Estimated GFR Random Glucose Lactic Acid Lactic Acid F/U @ 2Hr Calcium Phosphorus Magnesium Total Bilirubin AST ALT Alkaline Phosphatase Total Protein Albumin Blood Type Antibody Screen Crossmatch 01/11/24 04:33 WBC 14.9 H RBC 2.68 L D Hgb 8.4 L D Hct 23.4 L D MCV 87.3 MCH 31.3 MCHC 35.9 RDW 14.0 Plt Count 192 MPV 9.1 L Immature Gran % (Auto) 0.7 H Neut % (Auto) 76.7 H Lymph % (Auto) 8.9 L [place] % (Auto) 13.5 H Eos % (Auto) 0.0 Baso % (Auto) 0.2 Lymph # (Auto) 1.3 [place] # (Auto) 2.0 H Eos # (Auto) 0.0 Baso # (Auto) 0.0 Abs Immat Gran (auto) 0.11 H Absolute Neuts (auto) 11.4 H Absolute Nucleated RBC 0.000 Nucleated RBC % (auto) 0.0 Smear Tech's Comments Smear Path Review aPTT Heparin Protocol Activated Clotting Time VBG pH VBG pCO2 VBG pO2 VBG HCO3 VBG O2 Saturation VBG Base Excess Sodium 135 Potassium 4.6 Chloride 101 Carbon Dioxide 24 Anion Gap 15 BUN 26 H Creatinine 1.17 Estim Creat Clear Calc 75.6 Estimated GFR > 60 Random Glucose 129 H Lactic Acid Lactic Acid F/U @ 2Hr Calcium 9.2 D Phosphorus 4.3 Magnesium 2.2 Total Bilirubin AST ALT Alkaline Phosphatase Total Protein Albumin 3.6 Blood Type Antibody Screen Crossmatch Progress Note: A&P Assessment and plan (1) Peripheral arterial disease: Status: Acute (2) Retroperitoneal hematoma: Status: Acute (3) Subcapsular hematoma of kidney transplant: Status: Acute (4) Hemorrhagic shock: Status: Acute (5) Acute blood loss anemia: Status: Acute Plan Assessment: 63-year-old gentleman with underlying peripheral arterial disease now status post placement of right sided intra-arterial tPA catheter for occluded popliteal graft, now status post successful thrombolysis of of an occluded graft Plan: Neuro: No acute issues. Cardiac: Hemorrhagic shock, resolved, titrated off pressors. Peripheral artery disease with an occluded popliteal graft on the right, now status post successful thrombolysis. Vascular surgery service care appreciated. Complicated by left retroperitoneal and left renal subcapsular hematoma, initially stabilized, but with rebleeding and worsening of subcapsular hematoma on 01/10/2024 in the evening requiring additional 6 units of packed red blood cells. Heparin stopped. Discussed with general surgery covering for vascular surgery regarding intervention/transfer. General surgery reached out to [facility] with no transfer planned and no acute interventions planned. Underlying history of AFib. Pulmonary: No acute issues. Underlying history of COPD. Renal: No acute issues. Endo: No acute issues. GI: No acute issues. ID: No acute issues Heme/Onc: Acute blood loss secondary to retroperitoneal hematoma/subcapsular hematoma. Hemoglobin stabilized. Require total of 9 units of packed red blood cells, 2 FFP, and 1 of platelets. Continue to monitor hemoglobin level. Psych: No acute issues. Miscellaneous: No acute issues. Prophylaxis: Compression devices Diet: Regular Quality Stroke Does the patient have a stroke diagnosis?: No VTE Prior VTE?: No VTE Risk Level:: Surgical - high VTE Device Contraindication: N/A - Device Ordered VTE Drug Contraindication: N/A - Med Ordered
[2024-01-11] MEDS: polyethylene glycoL 3350 17 GM POWD.PACK PO (11:52)
[2024-01-11] MEDS: Acetaminophen 325 MG TABLET 650 MG PO (11:54)
[2024-01-11 13:58] LABS: Basophils Percent Auto 0.3 % (0-2); Eosinophils Percent Auto 0.1 % (0-4); Hematocrit 22.7 % (42.0-52.0); Hemoglobin 8.2 g/dl (14.0-18.0); Imm Gran Abs Auto 0.09 X10*3/uL (0.00-0.03); Imm Gran Pct Auto 0.6 % (0.0-0.4); Lymphocytes Absolute Auto 1.4 X10*3/uL (1.2-4.9); Lymphocytes Percent Auto 9.6 % (20-40); MANUAL DIFF FLAG SCAN; Mean Corpuscular HGB Conc 36.1 g/dl (31.0-36.0); Mean Corpuscular Hemoglobin 31.8 pg (27.0-33.0); Mean Platelet Volume 9.6 fL (9.4-12.4); Monocytes Absolute Auto 2.1 X10*3/uL (0.1-1.2); Monocytes Percent Auto 14.3 % (2-11); NRBC Pct Auto 0.1 /100WBC (0.0-0.2); Neutrophils Absolute Auto 10.7 x10*3/uL (2.0-8.3); Neutrophils Percent Auto 75.1 % (45-73); Platelet Count 221 X10*3/uL (160-400); Red Blood Count 2.58 X10*6/uL (4.60-5.80); Red Cell Distribution Width 14.6 % (11.0-16.0); SCAN SMEAR FLAG 1; White Blood Count 14.3 X10*3/uL (4.8-10.8)
--- NOTE | 2024-01-11 14:09 | MHC.CM.PN ---
Pt returned to ICU where he required numerous units of blood products for critical H&H. New hematoma on imaging - Heparin d/c'd. CM to follow for finalization of d/c needs.
[2024-01-11 14:26] LABS: SLIDE REVIEW VERIFIED
--- NOTE | 2024-01-11 15:55 | PM.EVENT ---
Event Note Date of Service: 01/12/24 Event Note: Seen on afternoon rounds Sitting up on recliner Comfortable He denies any pain Very alert Denies foot pain Abdomen is soft Vital signs stable without pressors Hemoglobin steady Keep off anticoagulation Continue to monitor H&H Large retroperitoneal hematoma, mostly perinephric Creatinine normal Time Spent With Patient Time: Total time managing care of this patient today ____ minutes.
[2024-01-11] MEDS: oxyCODONE HCl Immed Release 15 MG TABLET PO ×2 (16:30→23:02)
--- NOTE | 2024-01-11 19:23 | ECG_ITS ---
Test Reason : CHEST PAIN Blood Pressure : / mmHG Vent. Rate : 118 BPM Atrial Rate : 118 BPM P-R Int : 136 ms QRS Dur : 142 ms QT Int : 372 ms P-R-T Axes : 000 -02 141 degrees QTc Int : 521 ms Sinus tachycardia Left bundle branch block Abnormal ECG When compared with ECG of 10-JAN-2024 08:19, Premature supraventricular complexes are no longer Present Vent. rate has increased BY 40 BPM Referred By: Bimal Knott Electronically Signed By:Khalif Ferrer
[2024-01-11 20:56] LABS: Hematocrit 21.1 % (42.0-52.0); Hemoglobin 7.5 g/dl (14.0-18.0); Mean Corpuscular HGB Conc 35.5 g/dl (31.0-36.0); Mean Corpuscular Hemoglobin 31.5 pg (27.0-33.0); Mean Corpuscular Volume 88.7 fL (80.0-98.0); Mean Platelet Volume 9.5 fL (9.4-12.4); Platelet Count 206 X10*3/uL (160-400); Red Blood Count 2.38 X10*6/uL (4.60-5.80); Red Cell Distribution Width 15.3 % (11.0-16.0); White Blood Count 12.3 X10*3/uL (4.8-10.8)
[2024-01-11 21:12] LABS: Anion Gap 8 (12-20); Blood Urea Nitrogen 27 mg/dL (9-16); Calcium 8.8 mg/dL (8.4-10.2); Carbon Dioxide 27 mmol/L (22-29); Chloride 102 mmol/L (96-108); Creatinine Clr Calc Pharmacy 86.8; Estimated Glomerular Filt Rate > 60; Glucose Random 107 mg/dL (60-115); Magnesium 2.4 mg/dL (1.6-2.6); Phosphorus 2.7 mg/dL (2.7-4.5); Sodium 133 mmol/L (135-145)
[2024-01-12] VITALS (25 sets, daily range): BP systolic 120–144; BP diastolic 58–81; PULSE 75–87; RESP 14–22; TEMP 36.6–37.7; O2SAT 93–97; BMI 29.8
[2024-01-12 00:51] LABS: Basophils Absolute Auto 0.1 X10*3/uL (0.0-0.2); Basophils Percent Auto 0.5 % (0-2); Eosinophils Absolute Auto 0.1 X10*3/uL (0.0-0.4); Eosinophils Percent Auto 0.5 % (0-4); Hematocrit 21.3 % (42.0-52.0); Hemoglobin 7.6 g/dl (14.0-18.0); Imm Gran Abs Auto 0.08 X10*3/uL (0.00-0.03); Imm Gran Pct Auto 0.7 % (0.0-0.4); Lymphocytes Absolute Auto 1.2 X10*3/uL (1.2-4.9); Lymphocytes Percent Auto 10.5 % (20-40); MANUAL DIFF FLAG SCAN; Mean Corpuscular HGB Conc 35.7 g/dl (31.0-36.0); Mean Corpuscular Hemoglobin 31.8 pg (27.0-33.0); Mean Corpuscular Volume 89.1 fL (80.0-98.0); Mean Platelet Volume 10.7 fL (9.4-12.4); Monocytes Absolute Auto 1.6 X10*3/uL (0.1-1.2); Monocytes Percent Auto 14.6 % (2-11); NRBC Pct Auto 0.3 /100WBC (0.0-0.2); Neutrophils Percent Auto 73.2 % (45-73); PLT CLUMP 1; Red Blood Count 2.39 X10*6/uL (4.60-5.80); Red Cell Distribution Width 15.1 % (11.0-16.0); SCAN SMEAR FLAG 1
[2024-01-12 01:16] LABS: SLIDE REVIEW VERIFIED
[2024-01-12 05:20] LABS: VBG Base Excess 5.9 mmol/L; VBG HCO3 31 mmol/L (22-26); VBG pCO2 47 mmHg; VBG pH 7.41 (7.32-7.43); VBG pO2 34 mmHg
[2024-01-12] MEDS: oxyCODONE HCl Immed Release 15 MG TABLET PO ×2 (05:24→19:31)
[2024-01-12 05:55] LABS: Basophils Absolute Auto 0.1 X10*3/uL (0.0-0.2); Basophils Percent Auto 0.5 % (0-2); Eosinophils Absolute Auto 0.1 X10*3/uL (0.0-0.4); Eosinophils Percent Auto 1.1 % (0-4); Hemoglobin 7.7 g/dl (14.0-18.0); Imm Gran Abs Auto 0.07 X10*3/uL (0.00-0.03); Imm Gran Pct Auto 0.7 % (0.0-0.4); Lymphocytes Absolute Auto 1.2 X10*3/uL (1.2-4.9); Lymphocytes Percent Auto 11.4 % (20-40); MANUAL DIFF FLAG SCAN; Mean Corpuscular Hemoglobin 31.7 pg (27.0-33.0); Mean Corpuscular Volume 90.5 fL (80.0-98.0); Mean Platelet Volume 9.3 fL (9.4-12.4); Monocytes Absolute Auto 1.6 X10*3/uL (0.1-1.2); Neutrophils Absolute Auto 7.6 x10*3/uL (2.0-8.3); Neutrophils Percent Auto 71.3 % (45-73); Platelet Count 208 X10*3/uL (160-400); Red Blood Count 2.43 X10*6/uL (4.60-5.80); SCAN SMEAR FLAG 1; White Blood Count 10.7 X10*3/uL (4.8-10.8)
[2024-01-12 06:15] LABS: Alanine Aminotransferase 14 U/L (0-40); Albumin Level 3.5 g/dL (3.5-5.0); Alkaline Phosphatase 56 U/L (39-117); Anion Gap 14 (12-20); Aspartate Amino Transferase 27 U/L (5-37); Bilirubin Total 1.1 mg/dL (0.0-1.0); Blood Urea Nitrogen 25 mg/dL (9-16); Calcium 8.7 mg/dL (8.4-10.2); Carbon Dioxide 26 mmol/L (22-29); Chloride 103 mmol/L (96-108); Estimated Glomerular Filt Rate > 60; Glucose Random 94 mg/dL (60-115); Magnesium 2.3 mg/dL (1.6-2.6); Phosphorus 2.8 mg/dL (2.7-4.5); Potassium 3.9 mmol/L (3.3-5.1); Sodium 139 mmol/L (135-145); Total Protein 5.8 g/dL (6.5-8.0)
[2024-01-12 06:19] LABS: Venous Blood Gas Refer to POC result
[2024-01-12] MEDS: 0.9 % Sodium Chloride Flush 3 ML SYRINGE IVFLUSH ×3 (08:27→23:19)
[2024-01-12] MEDS: Atorvastatin Calcium 10 MG TABLET PO (08:27)
[2024-01-12] MEDS: Sennosides/Docusate Sodium TABLET 1 TAB PO (08:27)
[2024-01-12] MEDS: Acetaminophen 325 MG TABLET 650 MG PO ×2 (08:29→13:21)
--- NOTE | 2024-01-12 09:18 | P.PNGS_ITS ---
Subjective Subjective Date of Service: 01/12/24 Interval history: feels well denies foot pain denies abdl pain no events overnight stable VS Physical Exam 2 Vital Signs: Vital Signs: Last Vital Signs Temp 97.8 F 01/12/24 08:00 Pulse 81 01/12/24 08:00 Resp 20 01/12/24 08:00 BP 135/72 01/12/24 08:00 Pulse Ox 96 01/12/24 08:00 O2 Del Method Room Air 01/12/24 08:00 O2 Flow Rate 2 01/08/24 09:15 FiO2 30 01/11/24 18:00 BMI result Body Mass Index 29.8 Const: General: comfortable and no acute distress Resp: Effort & Inspection: normal respiratory effort Cardio: Rate: regular rate GI: Other: no ecchymoses, some fullness on left flank Palpation (GI): Soft to palpation, not firm, nontender and no guarding Extrem: Other: Doppler pulses on both feet, warm to touch Objective Data Active Medications Acetaminophen (Acetaminophen 325 Mg Tablet) 650 mg PO Q4H PRN PRN Reason: Pain, Mild (Pain Scale 1-3) Last Admin: 01/12/24 08:29 Dose: 650 mg Documented By: CHELSIE Albuterol Sulfate (Albuterol Sulfate (0.083%) 2.5 Mg/3 Ml Vial.Neb) 2.5 mg INHALE Q4H PRN PRN Reason: Shortness of Breath/Wheezing Last Admin: 01/09/24 05:04 Dose: 2.5 mg Documented By: JOANA Atorvastatin Calcium (Atorvastatin Calcium 10 Mg Tablet) 10 mg PO DAILY [facility] Last Admin: 01/12/24 08:27 Dose: 10 mg Documented By: CHELSIE Ceftriaxone Sodium (Ceftriaxone Sodium 2 Gm Vial) 2 gm IVPUSH Q24H [facility] Last Admin: 01/11/24 23:02 Dose: 2 gm Documented By: ROBERENEStefan Hydromorphone HCl (Hydromorphone Hcl 1 Mg/Ml Syringe) 1 mg IVPUSH Q2H PRN; Protocol PRN Reason: Pain, Severe (Pain Scale 7-10) Last Admin: 01/11/24 05:05 Dose: 1 mg Documented By: SARTHAK Norepinephrine Bitartrate (Levophed) 8 mg in 250 mls @ 0 mls/hr IVCONT .Q0M [facility]; Protocol Last Titration: 01/11/24 16:42 Dose: Infused Documented By: CHELSIE Ondansetron HCl (Ondansetron Hcl 4 Mg/2 Ml Vial) 4 mg IVPUSH Q4H PRN PRN Reason: Nausea and Vomiting Last Admin: 01/08/24 11:25 Dose: 4 mg Documented By: MAYA Oxycodone HCl (Oxycodone Hcl Immed Release 15 Mg Tablet) 15 mg PO Q4H PRN PRN Reason: Pain, Moderate(Pain Scale 4-6) Last Admin: 01/12/24 05:24 Dose: 15 mg Documented By: SHAQUILLE Polyethylene Glycol (Polyethylene Glycol 3350 17 Gm Powd.Pack) 17 gm PO DAILY PRN PRN Reason: Constipation Last Admin: 01/11/24 11:52 Dose: 17 gm Documented By: CHELSIE Senna/Docusate Sodium (Sennosides/Docusate Sodium Tablet) 1 tab PO DAILY [facility] Last Admin: 01/12/24 08:27 Dose: 1 tab Documented By: CHELSIE Sodium Chloride (0.9 % Sodium Chloride Flush 3 Ml Syringe) 3 ml IVFLUSH QSHIFT [facility] Last Admin: 01/12/24 08:27 Dose: 3 ml Documented By: CHELSIE Labs 01/12/24 14:31 01/12/24 05:14 Labs: Laboratory Results - last 24 hr 01/10/24 01/11/24 01/11/24 17:49 13:42 20:03 MCV 88.0 88.7 MCH 31.8 31.5 MCHC 36.1 H 35.5 RDW 14.6 15.3 Plt Count 221 206 MPV 9.6 9.5 Immature Gran % (Auto) 0.6 H Neut % (Auto) 75.1 H Lymph % (Auto) 9.6 L [place] % (Auto) 14.3 H Eos % (Auto) 0.1 Baso % (Auto) 0.3 Lymph # (Auto) 1.4 [place] # (Auto) 2.1 H Eos # (Auto) 0.0 Baso # (Auto) 0.0 Abs Immat Gran (auto) 0.09 H Absolute Neuts (auto) 10.7 H Absolute Nucleated RBC 0.020 H 0.000 Nucleated RBC % (auto) 0.1 0.0 Smear Tech's Comments VERIFIED Smear Path Review SEE NOTE VBG pH VBG pCO2 VBG pO2 VBG HCO3 VBG O2 Saturation VBG Base Excess Anion Gap 8 L Estim Creat Clear Calc 86.8 Estimated GFR > 60 Random Glucose 107 Calcium 8.8 Phosphorus 2.7 Magnesium 2.4 Total Bilirubin AST ALT Alkaline Phosphatase Total Protein Albumin 01/12/24 01/12/24 01/12/24 00:33 05:09 05:14 MCV 89.1 90.5 MCH 31.8 31.7 MCHC 35.7 35.0 RDW 15.1 15.0 Plt Count TNP 208 MPV 10.7 9.3 L Immature Gran % (Auto) 0.7 H 0.7 H Neut % (Auto) 73.2 H 71.3 Lymph % (Auto) 10.5 L 11.4 L [place] % (Auto) 14.6 H 15.0 H Eos % (Auto) 0.5 1.1 Baso % (Auto) 0.5 0.5 Lymph # (Auto) 1.2 1.2 [place] # (Auto) 1.6 H 1.6 H Eos # (Auto) 0.1 0.1 Baso # (Auto) 0.1 0.1 Abs Immat Gran (auto) 0.08 H 0.07 H Absolute Neuts (auto) 8.0 7.6 Absolute Nucleated RBC 0.030 H 0.000 Nucleated RBC % (auto) 0.3 H 0.0 Smear Tech's Comments VERIFIED Smear Path Review VBG pH 7.41 VBG pCO2 47 VBG pO2 34 VBG HCO3 31 H VBG O2 Saturation 56.0 VBG Base Excess 5.9 Anion Gap 14 Estim Creat Clear Calc 100.0 Estimated GFR > 60 Random Glucose 94 Calcium 8.7 Phosphorus 2.8 Magnesium 2.3 Total Bilirubin 1.1 H AST 27 ALT 14 Alkaline Phosphatase 56 Total Protein 5.8 L Albumin 3.5 Procedures Date of Service Date of Service: 01/12/24 Progress Note: A&P Assessment and plan (1) Retroperitoneal hematoma: Status: Acute Assessment and Plan: Hg has been stable x more than 24 hr hemodynamically stable looks well creatinine stable discussed with [facility] last night - continue current care, no surgical intervention, hold anticoag for now but will eventually need at least antiplatelet down the line to prevent graft thrombosis good Doppler pulses follow Hg Time Spent With Patient Time: Total time managing care of this patient today ____ minutes. Quality Stroke Does the patient have a stroke diagnosis?: No VTE Prior VTE?: No VTE Risk Level:: Surgical - high VTE Device Contraindication: N/A - Device Ordered VTE Drug Contraindication: N/A - Med Ordered
--- NOTE | 2024-01-12 10:03 | PM.CCPN ---
Subjective Subjective Date of Service: 01/12/24 Interval History: 63-year-old gentleman with underlying COPD, peripheral arterial disease, splenic vein thrombosis, AFib, BPH with prior right-sided popliteal bypasses with occlusion, now status post placement of intra-arterial tPA catheter monitored in the intensive care unit overnight. On 01/08/2024 status post to repeat fluoroscopy with demonstration of improved graft patency, but with development of postprocedure left-sided retroperitoneal hematoma requiring pressor support. Hemoglobin stabilized and patient was transferred to telemetry on 01/10/2024. However, had an episode of worsening retroperitoneal/subcapsular hemorrhage requiring pressor support and transfusion of additional 6 units of packed red blood cell transferred to the ICU for close monitor. Titrated off pressor support now remained stable. General surgery covering for vascular surgery discussed with [facility] around the event time about transfer or intervention with neither advised at that time. Effect of subcapsular hematoma discussed with urology with no concerns for viability of renal parenchyma at this time. No events overnight. Hemoglobin appears to to be re-equilibrating. Critical Care Time (minutes): 0 Physical Exam Vital Signs: Vital Signs: Last Vital Signs Temp 97.8 F 01/12/24 08:00 Pulse 80 01/12/24 09:00 Resp 14 01/12/24 09:00 BP 134/73 01/12/24 09:00 Pulse Ox 95 01/12/24 09:00 O2 Del Method Room Air 01/12/24 09:00 O2 Flow Rate 2 01/08/24 09:15 FiO2 30 01/11/24 18:00 BMI result Body Mass Index 29.8 Const: General: no acute distress, alert and awake Eyes: Sclerae: sclerae normal EOM: EOMs intact bilaterally Neck: Neck: Yes no lymphadenopathy, Yes trachea midline and Yes supple Resp: Effort & Inspection: normal respiratory effort and no respiratory distress Auscultation: clear to auscultation bilaterally Cardio: Rate: regular rate Rhythm: regular rhythm Heart sounds: no gallops, no murmurs and no rubs GI: Palpation (GI): Soft to palpation and Other GI palpation findings present ( Nontender) Auscultation: normal bowel sounds Extrem: General: Yes no pedal edema, No clubbing and No cyanosis Objective Data Labs 01/12/24 05:14 01/12/24 05:14 Labs: Laboratory Results - last 24 hr 01/11/24 01/11/24 01/12/24 13:42 20:03 00:33 WBC 14.3 H 12.3 H 11.0 H RBC 2.58 L 2.38 L 2.39 L Hgb 8.2 L 7.5 L 7.6 L Hct 22.7 L 21.1 L 21.3 L MCV 88.0 88.7 89.1 MCH 31.8 31.5 31.8 MCHC 36.1 H 35.5 35.7 RDW 14.6 15.3 15.1 Plt Count 221 206 TNP MPV 9.6 9.5 10.7 Immature Gran % (Auto) 0.6 H 0.7 H Neut % (Auto) 75.1 H 73.2 H Lymph % (Auto) 9.6 L 10.5 L [place] % (Auto) 14.3 H 14.6 H Eos % (Auto) 0.1 0.5 Baso % (Auto) 0.3 0.5 Lymph # (Auto) 1.4 1.2 [place] # (Auto) 2.1 H 1.6 H Eos # (Auto) 0.0 0.1 Baso # (Auto) 0.0 0.1 Abs Immat Gran (auto) 0.09 H 0.08 H Absolute Neuts (auto) 10.7 H 8.0 Absolute Nucleated RBC 0.020 H 0.000 0.030 H Nucleated RBC % (auto) 0.1 0.0 0.3 H Smear Tech's Comments VERIFIED VERIFIED VBG pH VBG pCO2 VBG pO2 VBG HCO3 VBG O2 Saturation VBG Base Excess Sodium 133 L Potassium 4.0 Chloride 102 Carbon Dioxide 27 Anion Gap 8 L BUN 27 H Creatinine 1.02 Estim Creat Clear Calc 86.8 Estimated GFR > 60 Random Glucose 107 Calcium 8.8 Phosphorus 2.7 Magnesium 2.4 Total Bilirubin AST ALT Alkaline Phosphatase Total Protein Albumin 01/12/24 01/12/24 05:09 05:14 WBC 10.7 RBC 2.43 L Hgb 7.7 L Hct 22.0 L MCV 90.5 MCH 31.7 MCHC 35.0 RDW 15.0 Plt Count 208 MPV 9.3 L Immature Gran % (Auto) 0.7 H Neut % (Auto) 71.3 Lymph % (Auto) 11.4 L [place] % (Auto) 15.0 H Eos % (Auto) 1.1 Baso % (Auto) 0.5 Lymph # (Auto) 1.2 [place] # (Auto) 1.6 H Eos # (Auto) 0.1 Baso # (Auto) 0.1 Abs Immat Gran (auto) 0.07 H Absolute Neuts (auto) 7.6 Absolute Nucleated RBC 0.000 Nucleated RBC % (auto) 0.0 Smear Tech's Comments VBG pH 7.41 VBG pCO2 47 VBG pO2 34 VBG HCO3 31 H VBG O2 Saturation 56.0 VBG Base Excess 5.9 Sodium 139 Potassium 3.9 Chloride 103 Carbon Dioxide 26 Anion Gap 14 BUN 25 H Creatinine 0.90 Estim Creat Clear Calc 100.0 Estimated GFR > 60 Random Glucose 94 Calcium 8.7 Phosphorus 2.8 Magnesium 2.3 Total Bilirubin 1.1 H AST 27 ALT 14 Alkaline Phosphatase 56 Total Protein 5.8 L Albumin 3.5 Progress Note: A&P Assessment and plan (1) Peripheral arterial disease: Status: Acute (2) Retroperitoneal hematoma: Status: Acute (3) Subcapsular hematoma of kidney transplant: Status: Acute (4) Acute blood loss anemia: Status: Acute Plan Assessment: 63-year-old gentleman with underlying peripheral arterial disease now status post placement of right sided intra-arterial tPA catheter for occluded popliteal graft, now status post successful thrombolysis of of an occluded graft Plan: Neuro: No acute issues. Cardiac: Hemorrhagic shock, resolved, titrated off pressors. Peripheral artery disease with an occluded popliteal graft on the right, now status post successful thrombolysis. Vascular and general surgery services care appreciated. Complicated by left retroperitoneal and left renal subcapsular hematoma with rebleeding, now hemoglobin appears to be stabilizing. Underlying history of AFib. Pulmonary: No acute issues. Underlying history of COPD. Renal: No acute issues. Endo: No acute issues. GI: No acute issues. ID: No acute issues Heme/Onc: Acute blood loss secondary to retroperitoneal hematoma/subcapsular hematoma. Hemoglobin stabilizing. Require total of 9 units of packed red blood cells, 2 FFP, and 1 of platelets. Continue to monitor hemoglobin level. Psych: No acute issues. Miscellaneous: No acute issues. Prophylaxis: Compression devices Diet: Regular Quality Stroke Does the patient have a stroke diagnosis?: No VTE Prior VTE?: No VTE Risk Level:: Surgical - high VTE Device Contraindication: N/A - Device Ordered VTE Drug Contraindication: N/A - Med Ordered
[2024-01-12 14:47] LABS: Basophils Absolute Auto 0.1 X10*3/uL (0.0-0.2); Basophils Percent Auto 0.4 % (0-2); Eosinophils Absolute Auto 0.1 X10*3/uL (0.0-0.4); Hematocrit 22.4 % (42.0-52.0); Hemoglobin 7.6 g/dl (14.0-18.0); Imm Gran Abs Auto 0.07 X10*3/uL (0.00-0.03); Imm Gran Pct Auto 0.6 % (0.0-0.4); Lymphocytes Absolute Auto 1.1 X10*3/uL (1.2-4.9); Lymphocytes Percent Auto 9.9 % (20-40); MANUAL DIFF FLAG NO; Mean Corpuscular HGB Conc 33.9 g/dl (31.0-36.0); Mean Corpuscular Hemoglobin 30.9 pg (27.0-33.0); Mean Corpuscular Volume 91.1 fL (80.0-98.0); Mean Platelet Volume 9.2 fL (9.4-12.4); Monocytes Absolute Auto 1.5 X10*3/uL (0.1-1.2); Monocytes Percent Auto 12.9 % (2-11); Neutrophils Absolute Auto 8.4 x10*3/uL (2.0-8.3); Neutrophils Percent Auto 75.2 % (45-73); Platelet Count 219 X10*3/uL (160-400); Red Blood Count 2.46 X10*6/uL (4.60-5.80); White Blood Count 11.2 X10*3/uL (4.8-10.8)
--- NOTE | 2024-01-12 14:47 | MHC.CM.PN ---
Patient remains in ICU. Received notification from ICU staff that patient wants to complete a HCP. Met with patient with blank HCP. Patient wants to name his daughter, Karolina, his HCP. However, he doesn't want to sign the form until his daughter is present. Blank HCP left with patient. Continue to monitor for d/c needs.
[2024-01-12 20:13] LABS: Hematocrit 22.7 % (42.0-52.0); Hemoglobin 7.8 g/dl (14.0-18.0); Mean Corpuscular HGB Conc 34.4 g/dl (31.0-36.0); Mean Corpuscular Hemoglobin 31.1 pg (27.0-33.0); Mean Corpuscular Volume 90.4 fL (80.0-98.0); Mean Platelet Volume 9.7 fL (9.4-12.4); Platelet Count 226 X10*3/uL (160-400); Red Blood Count 2.51 X10*6/uL (4.60-5.80); Red Cell Distribution Width 14.9 % (11.0-16.0); White Blood Count 11.9 X10*3/uL (4.8-10.8)
[2024-01-12] MEDS: cefTRIAXone sodium 2 GM VIAL IVPUSH (23:19)
[2024-01-13] VITALS (25 sets, daily range): BP systolic 110–157; BP diastolic 54–81; PULSE 72–89; RESP 16–24; TEMP 36.9–37.8; O2SAT 92–97
[2024-01-13] MEDS: oxyCODONE HCl Immed Release 15 MG TABLET PO ×5 (01:49→20:45)
[2024-01-13 02:24] LABS: Hematocrit 23.6 % (42.0-52.0); Mean Corpuscular HGB Conc 33.9 g/dl (31.0-36.0); Mean Corpuscular Hemoglobin 31.3 pg (27.0-33.0); Mean Corpuscular Volume 92.2 fL (80.0-98.0); Mean Platelet Volume 9.1 fL (9.4-12.4); Platelet Count 187 X10*3/uL (160-400); Red Blood Count 2.56 X10*6/uL (4.60-5.80); Red Cell Distribution Width 14.7 % (11.0-16.0); White Blood Count 12.6 X10*3/uL (4.8-10.8)
[2024-01-13 05:01] LABS: VBG Base Excess 3.2 mmol/L; VBG HCO3 27 mmol/L (22-26); VBG pCO2 37 mmHg; VBG pH 7.46 (7.32-7.43); VBG pO2 55 mmHg
[2024-01-13 05:24] LABS: MANUAL DIFF FLAG NO
[2024-01-13 05:26] LABS: Basophils Percent Auto 0.4 % (0-2); Eosinophils Absolute Auto 0.1 X10*3/uL (0.0-0.4); Eosinophils Percent Auto 1.1 % (0-4); Hematocrit 22.1 % (42.0-52.0); Hemoglobin 7.6 g/dl (14.0-18.0); Imm Gran Abs Auto 0.09 X10*3/uL (0.00-0.03); Imm Gran Pct Auto 0.8 % (0.0-0.4); Lymphocytes Absolute Auto 1.2 X10*3/uL (1.2-4.9); Lymphocytes Percent Auto 11.2 % (20-40); Mean Corpuscular HGB Conc 34.4 g/dl (31.0-36.0); Mean Corpuscular Hemoglobin 31.3 pg (27.0-33.0); Mean Corpuscular Volume 90.9 fL (80.0-98.0); Mean Platelet Volume 9.1 fL (9.4-12.4); Monocytes Absolute Auto 1.5 X10*3/uL (0.1-1.2); Monocytes Percent Auto 13.2 % (2-11); Neutrophils Absolute Auto 8.1 x10*3/uL (2.0-8.3); Neutrophils Percent Auto 73.3 % (45-73); Platelet Count 204 X10*3/uL (160-400); Red Blood Count 2.43 X10*6/uL (4.60-5.80); Red Cell Distribution Width 14.6 % (11.0-16.0); White Blood Count 11.1 X10*3/uL (4.8-10.8)
[2024-01-13 05:45] LABS: Albumin Level 3.5 g/dL (3.5-5.0); Anion Gap 14 (12-20); Blood Urea Nitrogen 19 mg/dL (9-16); Calcium 8.8 mg/dL (8.4-10.2); Carbon Dioxide 24 mmol/L (22-29); Chloride 103 mmol/L (96-108); Creatinine Clr Calc Pharmacy 121.6; Estimated Glomerular Filt Rate > 60; Glucose Random 90 mg/dL (60-115); Magnesium 2.3 mg/dL (1.6-2.6); Potassium 3.8 mmol/L (3.3-5.1); Sodium 137 mmol/L (135-145)
[2024-01-13 05:58] LABS: Venous Blood Gas Refer to POC result
[2024-01-13] MEDS: Sennosides/Docusate Sodium TABLET 1 TAB PO (07:44)
[2024-01-13] MEDS: Atorvastatin Calcium 10 MG TABLET PO (07:44)
[2024-01-13] MEDS: 0.9 % Sodium Chloride Flush 3 ML SYRINGE IVFLUSH ×3 (07:45→19:51)
[2024-01-13] MEDS: polyethylene glycoL 3350 17 GM POWD.PACK PO (07:45)
--- NOTE | 2024-01-13 09:29 | P.PNCC_ITS ---
Subjective Subjective Date of Service: 01/13/24 Interval History: 63-year-old gentleman with underlying COPD, peripheral arterial disease, splenic vein thrombosis, AFib, BPH with prior right-sided popliteal bypasses with occlusion, now status post placement of intra-arterial tPA catheter monitored in the intensive care unit overnight. On 01/08/2024 status post to repeat fluoroscopy with demonstration of improved graft patency, but with development of postprocedure left-sided retroperitoneal hematoma requiring pressor support. Hemoglobin stabilized and patient was transferred to telemetry on 01/10/2024. However, had an episode of worsening retroperitoneal/subcapsular hemorrhage requiring pressor support and transfusion of additional 6 units of packed red blood cell transferred to the ICU for close monitor. Titrated off pressor support now remained stable. General surgery covering for vascular surgery discussed with [facility] around the event time about transfer or intervention with neither advised at that time. Effect of subcapsular hematoma discussed with urology with no concerns for viability of renal parenchyma at this time. No events overnight. Right lower extremity with worsening distal pulses/increased cutaneous coolness covering general surgery notified and is in discussion with vascular/external facility regarding aspirin utilization as per nursing report. Critical Care Time (minutes): 0 Physical Exam 2 Vital Signs: Vital Signs: Last Vital Signs Temp 99.2 F 01/13/24 07:00 Pulse 81 01/13/24 09:00 Resp 19 01/13/24 09:00 BP 116/60 01/13/24 09:00 Pulse Ox 94 01/13/24 09:00 O2 Del Method Room Air 01/13/24 09:00 O2 Flow Rate 2 01/08/24 09:15 FiO2 30 01/11/24 18:00 BMI result Body Mass Index 29.8 Const: General: no acute distress, alert and awake Eyes: Sclerae: sclerae normal EOM: EOMs intact bilaterally Neck: Neck: Yes no lymphadenopathy, Yes trachea midline and Yes supple Resp: Effort & Inspection: normal respiratory effort and no respiratory distress Auscultation: clear to auscultation bilaterally Cardio: Rate: regular rate Rhythm: regular rhythm Heart sounds: no gallops, no murmurs and no rubs GI: Palpation (GI): Soft to palpation and Other GI palpation findings present ( Nontender) Auscultation: normal bowel sounds Extrem: Other: Right lower extremity distally cool as compared to the left and mildly tender to cutaneous palpation General: No clubbing, No cyanosis and Yes other Objective Data Labs 01/13/24 04:49 01/13/24 04:49 Labs: Laboratory Results - last 24 hr 01/12/24 01/12/24 01/13/24 14:31 19:28 02:00 WBC 11.2 H 11.9 H 12.6 H RBC 2.46 L 2.51 L 2.56 L Hgb 7.6 L 7.8 L 8.0 L Hct 22.4 L 22.7 L 23.6 L MCV 91.1 90.4 92.2 MCH 30.9 31.1 31.3 MCHC 33.9 34.4 33.9 RDW 15.0 14.9 14.7 Plt Count 219 226 187 MPV 9.2 L 9.7 9.1 L Immature Gran % (Auto) 0.6 H Neut % (Auto) 75.2 H Lymph % (Auto) 9.9 L [place] % (Auto) 12.9 H Eos % (Auto) 1.0 Baso % (Auto) 0.4 Lymph # (Auto) 1.1 L [place] # (Auto) 1.5 H Eos # (Auto) 0.1 Baso # (Auto) 0.1 Abs Immat Gran (auto) 0.07 H Absolute Neuts (auto) 8.4 H Absolute Nucleated RBC 0.000 0.000 0.000 Nucleated RBC % (auto) 0.0 0.0 0.0 VBG pH VBG pCO2 VBG pO2 VBG HCO3 VBG O2 Saturation VBG Base Excess Sodium Potassium Chloride Carbon Dioxide Anion Gap BUN Creatinine Estim Creat Clear Calc Estimated GFR Random Glucose Calcium Phosphorus Magnesium Albumin 01/13/24 01/13/24 04:49 04:51 WBC 11.1 H RBC 2.43 L Hgb 7.6 L Hct 22.1 L MCV 90.9 MCH 31.3 MCHC 34.4 RDW 14.6 Plt Count 204 MPV 9.1 L Immature Gran % (Auto) 0.8 H Neut % (Auto) 73.3 H Lymph % (Auto) 11.2 L [place] % (Auto) 13.2 H Eos % (Auto) 1.1 Baso % (Auto) 0.4 Lymph # (Auto) 1.2 [place] # (Auto) 1.5 H Eos # (Auto) 0.1 Baso # (Auto) 0.0 Abs Immat Gran (auto) 0.09 H Absolute Neuts (auto) 8.1 Absolute Nucleated RBC 0.000 Nucleated RBC % (auto) 0.0 VBG pH 7.46 H VBG pCO2 37 VBG pO2 55 VBG HCO3 27 H VBG O2 Saturation 87.0 VBG Base Excess 3.2 Sodium 137 Potassium 3.8 Chloride 103 Carbon Dioxide 24 Anion Gap 14 BUN 19 H Creatinine 0.74 Estim Creat Clear Calc 121.6 Estimated GFR > 60 Random Glucose 90 Calcium 8.8 Phosphorus 3.0 Magnesium 2.3 Albumin 3.5 Progress Note: A&P Assessment and plan (1) Peripheral arterial disease: Status: Acute (2) Retroperitoneal hematoma: Status: Acute (3) Acute blood loss anemia: Status: Acute (4) Vascular graft thrombosis: Status: Acute Plan Assessment: 63-year-old gentleman with underlying peripheral arterial disease now status post placement of right sided intra-arterial tPA catheter for occluded popliteal graft, now status post successful thrombolysis of of an occluded graft Plan: Neuro: No acute issues. Cardiac: Hemorrhagic shock, resolved, titrated off pressors. Peripheral artery disease with an occluded popliteal graft on the right, now status post successful thrombolysis. Vascular and general surgery services care appreciated. Complicated by left retroperitoneal and left renal subcapsular hematoma with rebleeding, now hemoglobin appears to be stabilizing. Underlying history of AFib. This a.m. right lower extremity cooler and more tender, concern for vascular graft thrombosis discussed with covering general surgery. Pulmonary: No acute issues. Underlying history of COPD. Renal: No acute issues. Endo: No acute issues. GI: No acute issues. ID: No acute issues Heme/Onc: Acute blood loss secondary to retroperitoneal hematoma/subcapsular hematoma. Hemoglobin stabilizing. Require total of 9 units of packed red blood cells, 2 FFP, and 1 of platelets. Continue to monitor hemoglobin level. Psych: No acute issues. Miscellaneous: No acute issues. Prophylaxis: Compression devices Diet: Regular Quality Stroke Does the patient have a stroke diagnosis?: No VTE Prior VTE?: No VTE Risk Level:: Surgical - high VTE Device Contraindication: N/A - Device Ordered VTE Drug Contraindication: N/A - Med Ordered
--- NOTE | 2024-01-13 09:42 | P.PNGS_ITS ---
Subjective Subjective Date of Service: 01/13/24 Interval history: Denies foot pain Says he feels well Denies abdominal pain or back pain Has had stable vital signs Physical Exam 2 Vital Signs: Vital Signs: Last Vital Signs Temp 99.2 F 01/13/24 07:00 Pulse 81 01/13/24 09:00 Resp 19 01/13/24 09:00 BP 116/60 01/13/24 09:00 Pulse Ox 94 01/13/24 09:00 O2 Del Method Room Air 01/13/24 09:00 O2 Flow Rate 2 01/08/24 09:15 FiO2 30 01/11/24 18:00 BMI result Body Mass Index 29.8 Const: General: comfortable and no acute distress Resp: Effort & Inspection: normal respiratory effort Cardio: Rate: regular rate GI: Palpation (GI): Soft to palpation and not firm Extrem: Other: Right foot seems cooler to touch compared to yesterday; Doppler signals not as strong on the DP; Objective Data Active Medications Acetaminophen (Acetaminophen 325 Mg Tablet) 650 mg PO Q4H PRN PRN Reason: Pain, Mild (Pain Scale 1-3) Last Admin: 01/12/24 13:21 Dose: 650 mg Documented By: CHELSIE Albuterol Sulfate (Albuterol Sulfate (0.083%) 2.5 Mg/3 Ml Vial.Neb) 2.5 mg INHALE Q4H PRN PRN Reason: Shortness of Breath/Wheezing Last Admin: 01/09/24 05:04 Dose: 2.5 mg Documented By: JOANA Atorvastatin Calcium (Atorvastatin Calcium 10 Mg Tablet) 10 mg PO DAILY [facility] Last Admin: 01/13/24 07:44 Dose: 10 mg Documented By: CHELSIE Ceftriaxone Sodium (Ceftriaxone Sodium 2 Gm Vial) 2 gm IVPUSH Q24H [facility] Last Admin: 01/12/24 23:19 Dose: 2 gm Documented By: SHAQUILLE Hydromorphone HCl (Hydromorphone Hcl 1 Mg/Ml Syringe) 1 mg IVPUSH Q2H PRN; Protocol PRN Reason: Pain, Severe (Pain Scale 7-10) Last Admin: 01/11/24 05:05 Dose: 1 mg Documented By: SARTHAK Norepinephrine Bitartrate (Levophed) 8 mg in 250 mls @ 0 mls/hr IVCONT .Q0M [facility]; Protocol Last Titration: 01/11/24 16:42 Dose: Infused Documented By: CHELSIE Ondansetron HCl (Ondansetron Hcl 4 Mg/2 Ml Vial) 4 mg IVPUSH Q4H PRN PRN Reason: Nausea and Vomiting Last Admin: 01/08/24 11:25 Dose: 4 mg Documented By: MAYA Oxycodone HCl (Oxycodone Hcl Immed Release 15 Mg Tablet) 15 mg PO Q4H PRN PRN Reason: Pain, Moderate(Pain Scale 4-6) Last Admin: 01/13/24 07:45 Dose: 15 mg Documented By: CHELSIE Polyethylene Glycol (Polyethylene Glycol 3350 17 Gm Powd.Pack) 17 gm PO DAILY PRN PRN Reason: Constipation Last Admin: 01/13/24 07:45 Dose: 17 gm Documented By: CHELSIE Senna/Docusate Sodium (Sennosides/Docusate Sodium Tablet) 1 tab PO DAILY [facility] Last Admin: 01/13/24 07:44 Dose: 1 tab Documented By: CHELSIE Sodium Chloride (0.9 % Sodium Chloride Flush 3 Ml Syringe) 3 ml IVFLUSH QSHIFT [facility] Last Admin: 01/13/24 07:45 Dose: 3 ml Documented By: CHELSIE Labs 01/13/24 04:49 01/13/24 04:49 Labs: Laboratory Results - last 24 hr 01/12/24 01/12/24 01/13/24 14:31 19:28 02:00 MCV 91.1 90.4 92.2 MCH 30.9 31.1 31.3 MCHC 33.9 34.4 33.9 RDW 15.0 14.9 14.7 Plt Count 219 226 187 MPV 9.2 L 9.7 9.1 L Immature Gran % (Auto) 0.6 H Neut % (Auto) 75.2 H Lymph % (Auto) 9.9 L [place] % (Auto) 12.9 H Eos % (Auto) 1.0 Baso % (Auto) 0.4 Lymph # (Auto) 1.1 L [place] # (Auto) 1.5 H Eos # (Auto) 0.1 Baso # (Auto) 0.1 Abs Immat Gran (auto) 0.07 H Absolute Neuts (auto) 8.4 H Absolute Nucleated RBC 0.000 0.000 0.000 Nucleated RBC % (auto) 0.0 0.0 0.0 VBG pH VBG pCO2 VBG pO2 VBG HCO3 VBG O2 Saturation VBG Base Excess Anion Gap Estim Creat Clear Calc Estimated GFR Random Glucose Calcium Phosphorus Magnesium Albumin 01/13/24 01/13/24 04:49 04:51 MCV 90.9 MCH 31.3 MCHC 34.4 RDW 14.6 Plt Count 204 MPV 9.1 L Immature Gran % (Auto) 0.8 H Neut % (Auto) 73.3 H Lymph % (Auto) 11.2 L [place] % (Auto) 13.2 H Eos % (Auto) 1.1 Baso % (Auto) 0.4 Lymph # (Auto) 1.2 [place] # (Auto) 1.5 H Eos # (Auto) 0.1 Baso # (Auto) 0.0 Abs Immat Gran (auto) 0.09 H Absolute Neuts (auto) 8.1 Absolute Nucleated RBC 0.000 Nucleated RBC % (auto) 0.0 VBG pH 7.46 H VBG pCO2 37 VBG pO2 55 VBG HCO3 27 H VBG O2 Saturation 87.0 VBG Base Excess 3.2 Anion Gap 14 Estim Creat Clear Calc 121.6 Estimated GFR > 60 Random Glucose 90 Calcium 8.8 Phosphorus 3.0 Magnesium 2.3 Albumin 3.5 Procedures Date of Service Date of Service: 01/13/24 Progress Note: A&P Assessment and plan (1) Retroperitoneal hematoma: Status: Acute Assessment and Plan: Hemoglobin has been stable for more than 48 hours Right foot cooler to touch compared to yesterday and Doppler signal less obvious We will start on aspirin 81 mg daily Unfortunately, we can not restart full anticoagulation because of retroperitoneal hematoma, with need to prioritize life over limb He looks well otherwise I was able to discuss the above with Dr. Knott Time Spent With Patient Time: Total time managing care of this patient today ____ minutes. Quality Stroke Does the patient have a stroke diagnosis?: No VTE Prior VTE?: No VTE Risk Level:: Surgical - high VTE Device Contraindication: N/A - Device Ordered VTE Drug Contraindication: N/A - Med Ordered
[2024-01-13] MEDS: Aspirin Enteric Coated 81 MG TABLET.DR PO (10:05)
[2024-01-13] MEDS: Acetaminophen 325 MG TABLET 650 MG PO ×2 (12:11→22:24)
[2024-01-13 14:58] LABS: Basophils Percent Auto 0.2 % (0-2); Eosinophils Absolute Auto 0.1 X10*3/uL (0.0-0.4); Hematocrit 23.3 % (42.0-52.0); Imm Gran Abs Auto 0.08 X10*3/uL (0.00-0.03); Imm Gran Pct Auto 0.6 % (0.0-0.4); Lymphocytes Absolute Auto 0.9 X10*3/uL (1.2-4.9); Lymphocytes Percent Auto 6.9 % (20-40); MANUAL DIFF FLAG SCAN; Mean Corpuscular HGB Conc 34.3 g/dl (31.0-36.0); Mean Corpuscular Hemoglobin 32.1 pg (27.0-33.0); Mean Corpuscular Volume 93.6 fL (80.0-98.0); Mean Platelet Volume 8.9 fL (9.4-12.4); Monocytes Percent Auto 15.9 % (2-11); Neutrophils Absolute Auto 9.5 x10*3/uL (2.0-8.3); Neutrophils Percent Auto 75.4 % (45-73); Platelet Count 231 X10*3/uL (160-400); Red Blood Count 2.49 X10*6/uL (4.60-5.80); Red Cell Distribution Width 14.9 % (11.0-16.0); SCAN SMEAR FLAG 1; White Blood Count 12.6 X10*3/uL (4.8-10.8)
[2024-01-13 15:19] LABS: SLIDE REVIEW VERIFIED
[2024-01-13] MEDS: Docusate Sodium 100 MG CAPSULE PO ×2 (15:40→20:44)
[2024-01-13 21:59] LABS: Basophils Percent Auto 0.3 % (0-2); Eosinophils Absolute Auto 0.1 X10*3/uL (0.0-0.4); Eosinophils Percent Auto 0.8 % (0-4); Hematocrit 23.9 % (42.0-52.0); Imm Gran Abs Auto 0.07 X10*3/uL (0.00-0.03); Imm Gran Pct Auto 0.5 % (0.0-0.4); Lymphocytes Percent Auto 7.4 % (20-40); MANUAL DIFF FLAG SCAN; Mean Corpuscular HGB Conc 33.5 g/dl (31.0-36.0); Mean Corpuscular Hemoglobin 31.3 pg (27.0-33.0); Mean Corpuscular Volume 93.4 fL (80.0-98.0); Mean Platelet Volume 9.1 fL (9.4-12.4); Monocytes Absolute Auto 2.1 X10*3/uL (0.1-1.2); Monocytes Percent Auto 15.7 % (2-11); Neutrophils Absolute Auto 9.8 x10*3/uL (2.0-8.3); Neutrophils Percent Auto 75.3 % (45-73); Platelet Count 249 X10*3/uL (160-400); Red Blood Count 2.56 X10*6/uL (4.60-5.80); Red Cell Distribution Width 14.9 % (11.0-16.0); SCAN SMEAR FLAG 1; White Blood Count 13.1 X10*3/uL (4.8-10.8)
[2024-01-13] MEDS: cefTRIAXone sodium 2 GM VIAL IVPUSH (22:24)
[2024-01-14] VITALS (17 sets, daily range): BP systolic 133–157; BP diastolic 51–88; PULSE 70–87; RESP 13–25; TEMP 36.3–37.4; O2SAT 92–100; BMI 28.7
[2024-01-14] MEDS: oxyCODONE HCl Immed Release 15 MG TABLET PO ×2 (04:15→16:53)
[2024-01-14] MEDS: Acetaminophen 325 MG TABLET 650 MG PO ×2 (05:23→19:57)
[2024-01-14 05:50] LABS: Basophils Percent Auto 0.3 % (0-2); Eosinophils Absolute Auto 0.1 X10*3/uL (0.0-0.4); Eosinophils Percent Auto 1.1 % (0-4); Hematocrit 23.8 % (42.0-52.0); Hemoglobin 7.8 g/dl (14.0-18.0); Imm Gran Pct Auto 0.8 % (0.0-0.4); Lymphocytes Absolute Auto 0.8 X10*3/uL (1.2-4.9); Lymphocytes Percent Auto 6.7 % (20-40); MANUAL DIFF FLAG SCAN; Mean Corpuscular HGB Conc 32.8 g/dl (31.0-36.0); Mean Corpuscular Volume 94.4 fL (80.0-98.0); Mean Platelet Volume 9.2 fL (9.4-12.4); Monocytes Absolute Auto 1.9 X10*3/uL (0.1-1.2); Monocytes Percent Auto 15.7 % (2-11); Neutrophils Absolute Auto 9.2 x10*3/uL (2.0-8.3); Neutrophils Percent Auto 75.4 % (45-73); Platelet Count 267 X10*3/uL (160-400); Red Blood Count 2.52 X10*6/uL (4.60-5.80); Red Cell Distribution Width 14.6 % (11.0-16.0); SCAN SMEAR FLAG 1; White Blood Count 12.1 X10*3/uL (4.8-10.8)
[2024-01-14 06:05] LABS: Albumin Level 3.4 g/dL (3.5-5.0); Anion Gap 15 (12-20); Blood Urea Nitrogen 21 mg/dL (9-16); Calcium 9.3 mg/dL (8.4-10.2); Carbon Dioxide 22 mmol/L (22-29); Chloride 103 mmol/L (96-108); Creatinine Clr Calc Pharmacy 97.2; Estimated Glomerular Filt Rate > 60; Glucose Random 123 mg/dL (60-115); Magnesium 2.2 mg/dL (1.6-2.6); Phosphorus 2.8 mg/dL (2.7-4.5); Potassium 3.8 mmol/L (3.3-5.1); Sodium 136 mmol/L (135-145)
[2024-01-14 06:13] LABS: SLIDE REVIEW VERIFIED
[2024-01-14] MEDS: Docusate Sodium 100 MG CAPSULE PO ×2 (07:57→19:56)
[2024-01-14] MEDS: Atorvastatin Calcium 10 MG TABLET PO (07:57)
[2024-01-14] MEDS: 0.9 % Sodium Chloride Flush 3 ML SYRINGE IVFLUSH ×3 (07:58→22:53)
--- NOTE | 2024-01-14 09:40 | PM.CCPN ---
Subjective Subjective Date of Service: 01/14/24 Critical Care Time (minutes): 35 Comment: No new complaints, hemoglobin remained stable over the past 3 days. Hemodynamically stable. Physical Exam Vital Signs: Vital Signs: Last Vital Signs Temp 98.5 F 01/14/24 08:00 Pulse 70 01/14/24 09:00 Resp 20 01/14/24 09:00 BP 137/72 01/14/24 08:00 Pulse Ox 95 01/14/24 09:00 O2 Del Method Room Air 01/14/24 09:00 O2 Flow Rate 2 01/08/24 09:15 FiO2 30 01/11/24 18:00 BMI result Body Mass Index 28.7 General: Not in acute distress Nutritional Appearance: well nourished and overweight Eyes: appearance normal, both eyes and all related structures; Alignment and Position: alignment normal and position normal Neck: No lymphadenopathy, no thyromegaly Resp: bilateral air entry equal, occasional added sounds present Cardio: Regular rate, regular rhythm; Heart sounds: S1 normal heart sound present and S2 normal heart sound present GI: soft, nontender, no guarding, no hepatosplenomegaly : bladder normal to inspection, bladder normal to palpation, no renal angle tenderness Skin: no rashes or lesions noted and elasticity normal Neuro: oriented to person, oriented to place, oriented to time and moves all extremities Objective Data Labs 01/14/24 05:14 01/14/24 05:14 Labs: Laboratory Results - last 24 hr 01/13/24 01/13/24 01/14/24 14:46 21:52 05:14 WBC 12.6 H 13.1 H 12.1 H RBC 2.49 L 2.56 L 2.52 L Hgb 8.0 L 8.0 L 7.8 L Hct 23.3 L 23.9 L 23.8 L MCV 93.6 93.4 94.4 MCH 32.1 31.3 31.0 MCHC 34.3 33.5 32.8 RDW 14.9 14.9 14.6 Plt Count 231 249 267 MPV 8.9 L 9.1 L 9.2 L Immature Gran % (Auto) 0.6 H 0.5 H 0.8 H Neut % (Auto) 75.4 H 75.3 H 75.4 H Lymph % (Auto) 6.9 L 7.4 L 6.7 L [place] % (Auto) 15.9 H 15.7 H 15.7 H Eos % (Auto) 1.0 0.8 1.1 Baso % (Auto) 0.2 0.3 0.3 Lymph # (Auto) 0.9 L 1.0 L 0.8 L [place] # (Auto) 2.0 H 2.1 H 1.9 H Eos # (Auto) 0.1 0.1 0.1 Baso # (Auto) 0.0 0.0 0.0 Abs Immat Gran (auto) 0.08 H 0.07 H 0.10 H Absolute Neuts (auto) 9.5 H 9.8 H 9.2 H Absolute Nucleated RBC 0.000 0.000 0.000 Nucleated RBC % (auto) 0.0 0.0 0.0 Smear Tech's Comments VERIFIED VERIFIED Sodium 136 Potassium 3.8 Chloride 103 Carbon Dioxide 22 Anion Gap 15 BUN 21 H Creatinine 0.91 Estim Creat Clear Calc 97.2 Estimated GFR > 60 Random Glucose 123 H Calcium 9.3 Phosphorus 2.8 Magnesium 2.2 Albumin 3.4 L Progress Note: A&P Assessment and plan (1) Peripheral arterial disease: Status: Acute (2) Retroperitoneal hematoma: Status: Acute (3) S/P angiogram of extremity: Status: Acute (4) Vascular graft thrombosis: Status: Acute (5) Acute blood loss anemia: Status: Acute (6) Hydronephrosis: Status: Acute Plan Acute blood loss anemia: Secondary to retroperitoneal hematoma, stable for the past 3 days. Hb stable since 01/11/2024, did not require any further PRBC transfusions since then; will decrease H&H checks to q12h. Aspirin restarted for peripheral artery disease, we will closely monitor for any hemodynamic changes Peripheral artery disease: right-sided popliteal bypasses with recurrent occlusion, s/p placement of intra-arterial tPA catheter On atorvastatin, aspirin restarted Blood pressure is under control Breathing status stable We will be transferred to floor today for continued monitoring Quality Stroke Does the patient have a stroke diagnosis?: No VTE Prior VTE?: No VTE Risk Level:: Surgical - high VTE Device Contraindication: N/A - Device Ordered VTE Drug Contraindication: N/A - Med Ordered
[2024-01-14] MEDS: Aspirin Enteric Coated 81 MG TABLET.DR PO (10:23)
--- NOTE | 2024-01-14 13:21 | P.PNIM_ITS ---
Subjective Subjective Date of Service: 01/14/24 <Grazyna Cota PA-C - Last Filed: 01/14/24 14:07> 01/14/24 <Tho Alba MD - Last Filed: 01/14/24 17:30> Interval History: Patient is a 63-year-old male with a past medical history significant for COPD, PID, splenic vein thrombosis, AFib, BPH and prior right-sided popliteal bypasses with occlusion now status post placement of intra-arterial tPA catheter by vascular surgery Dr. Knott on 01/07/2024. On 01/08/2024 repeat fluoroscopy with demonstration of improved graft patency, but with development of post procedural left-sided retroperitoneal hematoma requiring pressor support and 3 units PRBC. Heparin drip was stopped on 01/08/2024 but resumed on 01/09/2024 by vascular surgery, hemoglobin stabilized and patient was off pressors 01/09/24, transferred to the medical floor on 01/09 and became tachycardic in the 180s with a hemoglobin of 3.3 and heparin drip was held. He was given an additional 4 units of RBC, 1 FFP and [address] showed large left renal subcapsular hematoma increased in size when compared to prior exam on 01/08/2024, measuring up to 17.5 cm, previously 3.0 cm. Hemoglobin has remained stable over the past 3 days, transferred to the floor today for continued monitoring. <Grazyna Cota PA-C - Last Filed: 01/14/24 14:07> Constitutional Constitutional: Denies chills, Denies fever(s) and Denies headache(s) <Grazyna Cota PA-C - Last Filed: 01/14/24 14:07> Eyes Eyes: Denies blurry vision and Denies change in vision <ELDON Ellington Last Filed: 01/14/24 14:07> ENT Ears, Nose, Mouth, and Throat: Denies headache(s), Denies nasal congestion and Denies nasal discharge < Grazyna Cota PA-C - Last Filed: 01/14/24 14:07> Cardiovascular Cardiovascular: Denies chest pain, Denies rapid heart rate, Denies leg edema and Denies dyspnea <DARION [email or web address] [email or web address] Last Filed: 01/14/24 14:07> Respiratory Respiratory: Denies cough and Denies dyspnea <Grazyna Cota PA-C Zoie Last Filed: 01/14/24 14:07> Gastrointestinal Gastrointestinal: Denies constipation, Denies diarrhea, Denies nausea and Denies vomiting < DARION EllingtonChuy Lino Last Filed: 01/14/24 14:07> Genitourinary Genitourinary: Denies dysuria and Denies urinary urgency <DARION Ellington [email or web address] Last Filed: 01/14/24 14:07> Integumentary/Breasts Skin/Breast: Denies rash <Grazyna Cota PA-C [email or web address] Last Filed: 01/14/24 14:07> Neurologic Neurologic: Denies headache(s) and Denies memory loss <DARION EllingtonChuy Lino Last Filed: 01/14/24 14:07> Psychiatric Psychiatric: Denies memory loss <Grazyna Cota PA-C Zoie Last Filed: 01/14/24 14:07> Endocrine Endocrine: Reports heat intolerance <DARION [email or web address] [email or web address] Last Filed: 01/14/24 14:07> Physical Exam 2 Vital Signs: Vital Signs: Last Vital Signs Temp 98.3 F 01/14/24 12:00 Pulse 84 01/14/24 12:00 Resp 20 01/14/24 12:00 BP 136/66 01/14/24 12:00 Pulse Ox 95 01/14/24 12:00 O2 Del Method Room Air 01/14/24 12:00 O2 Flow Rate 2 01/08/24 09:15 FiO2 30 01/11/24 18:00 BMI result Body Mass Index 28.7 <Grazyna Cota PA-C [email or web address] Last Filed: 01/14/24 14:07> General: AOx3, no acute distress Resp: crackles bilaterally CVS: S1, S2, RRR GI: +BS, generalized tenderness, mild distention Skin: Warm, dry Extremities: No edema Psych: Appropriate affect <Grazyna Cota PA-C Zoie Last Filed: 01/14/24 14:07> Objective Data Active Medications Acetaminophen (Acetaminophen 325 Mg Tablet) 650 mg PO Q4H PRN PRN Reason: Pain, Mild (Pain Scale 1-3) Last Admin: 01/14/24 05:23 Dose: 650 mg Documented By: JOSÉ MIGUEL Albuterol Sulfate (Albuterol Sulfate (0.083%) 2.5 Mg/3 Ml Vial.Keely) 2.5 mg INHALE Q4H PRN PRN Reason: Shortness of Breath/Wheezing Last Admin: 01/09/24 05:04 Dose: 2.5 mg Documented By: JOANA Aspirin (Aspirin Enteric Coated 81 Mg Tablet.) 81 mg PO DAILY [facility] Last Admin: 01/14/24 10:23 Dose: 81 mg Documented By: CHANDRIKA Atorvastatin Calcium (Atorvastatin Calcium 10 Mg Tablet) 10 mg PO DAILY [facility] Last Admin: 01/14/24 07:57 Dose: 10 mg Documented By: CHANDRIKA Ceftriaxone Sodium (Ceftriaxone Sodium 2 Gm Vial) 2 gm IVPUSH Q24H [facility] Last Admin: 01/13/24 22:24 Dose: 2 gm Documented By: JOSÉ MIGUEL Docusate Sodium (Docusate Sodium 100 Mg Capsule) 100 mg PO BID [facility] Last Admin: 01/14/24 07:57 Dose: 100 mg Documented By: CHANDRIKA Hydromorphone HCl (Hydromorphone Hcl 1 Mg/Ml Syringe) 1 mg IVPUSH Q2H PRN; Protocol PRN Reason: Pain, Severe (Pain Scale 7-10) Last Admin: 01/11/24 05:05 Dose: 1 mg Documented By: SARTHAK Olanzapine (Olanzapine 10 Mg Vial) 5 mg IM DAILY PRN PRN Reason: anxiety/restlessness Ondansetron HCl (Ondansetron Hcl 4 Mg/2 Ml Vial) 4 mg IVPUSH Q4H PRN PRN Reason: Nausea and Vomiting Last Admin: 01/08/24 11:25 Dose: 4 mg Documented By: MAYA Oxycodone HCl (Oxycodone Hcl Immed Release 15 Mg Tablet) 15 mg PO Q4H PRN PRN Reason: Pain, Moderate(Pain Scale 4-6) Last Admin: 01/14/24 04:15 Dose: 15 mg Documented By: JOSÉ MIGUEL Polyethylene Glycol (Polyethylene Glycol 3350 17 Gm Powd.Pack) 17 gm PO DAILY PRN PRN Reason: Constipation Last Admin: 01/13/24 07:45 Dose: 17 gm Documented By: CTORRAmadou Sodium Chloride (0.9 % Sodium Chloride Flush 3 Ml Syringe) 3 ml IVFLUSH QSHIFT JOSETTE Last Admin: 01/14/24 07:58 Dose: 3 ml Documented By: CHANDRIKA <Grazyna Cota PA-C - Last Filed: 01/14/24 14:07> Labs CBC & Chem 7: 01/14/24 05:14 01/14/24 05:14 <Grazyna Cota PA-C - Last Filed: 01/14/24 14:07> Labs: Laboratory Results - last 24 hr 01/13/24 01/13/24 01/14/24 14:46 21:52 05:14 MCV 93.6 93.4 94.4 MCH 32.1 31.3 31.0 MCHC 34.3 33.5 32.8 RDW 14.9 14.9 14.6 Plt Count 231 249 267 MPV 8.9 L 9.1 L 9.2 L Immature Gran % (Auto) 0.6 H 0.5 H 0.8 H Neut % (Auto) 75.4 H 75.3 H 75.4 H Lymph % (Auto) 6.9 L 7.4 L 6.7 L Whitfield % (Auto) 15.9 H 15.7 H 15.7 H Eos % (Auto) 1.0 0.8 1.1 Baso % (Auto) 0.2 0.3 0.3 Lymph # (Auto) 0.9 L 1.0 L 0.8 L Whitfield # (Auto) 2.0 H 2.1 H 1.9 H Eos # (Auto) 0.1 0.1 0.1 Baso # (Auto) 0.0 0.0 0.0 Abs Immat Gran (auto) 0.08 H 0.07 H 0.10 H Absolute Neuts (auto) 9.5 H 9.8 H 9.2 H Absolute Nucleated RBC 0.000 0.000 0.000 Nucleated RBC % (auto) 0.0 0.0 0.0 Smear Tech's Comments VERIFIED VERIFIED Anion Gap 15 Estim Creat Clear Calc 97.2 Estimated GFR > 60 Random Glucose 123 H Calcium 9.3 Phosphorus 2.8 Magnesium 2.2 Albumin 3.4 L <DARION EllingtonC - Last Filed: 01/14/24 14:07> Assessment and Plan (1) Peripheral arterial disease: Status: Chronic <DARION EllingtonC - Last Filed: 01/14/24 14:07> (2) Retroperitoneal hematoma: Status: Acute <DARION EllingtonC - Last Filed: 01/14/24 14:07> (3) S/P angiogram of extremity: Status: Acute <JO Ellington-C - Last Filed: 01/14/24 14:07> (4) Vascular graft thrombosis: Status: Acute <DARION EllingtonC - Last Filed: 01/14/24 14:07> (5) Acute blood loss anemia: Status: Acute <DARION EllingtonC - Last Filed: 01/14/24 14:07> (6) Hydronephrosis: Status: Acute <DARION EllingtonC - Last Filed: 01/14/24 14:07> (7) Hemorrhagic shock: Status: Resolved <DARION EllingtonC - Last Filed: 01/14/24 14:07> Assessment and Plan: Patient is a 63-year-old male with a past medical history significant for COPD, PAD, splenic vein thrombosis, AFib, BPH and prior right-sided popliteal bypasses with occlusion status post placement of intra arterial t-PA catheter by vascular surgery Dr. Berg on 01/07/24 complicated by postprocedural left-sided retroperitoneal hematoma requiring multiple blood transfusions and pressor support, H and H and pressure is stabilized Acute blood loss anemia - Secondary to retroperitoneal hematoma, H+H stable since 01/11/2024 - H&H checks to q12h - continue pantoprazole 80 mg daily - Aspirin restarted for peripheral artery disease, we will closely monitor for any hemodynamic changes Peripheral artery disease - right-sided popliteal bypasses with recurrent occlusion, s/p placement of intra-arterial tPA catheter - on atorvastatin, aspirin restarted COPD, unspecified - no acute exacerbation -continue home inhalers AFib - no anticoagulation - continue metoprolol 25 mg daily BPH - continue tamsulosin Full code VTE prophylaxis: Compression therapy secondary to recent bleed Patient s/p placement of intra-arterial tPA catheter by vascular surgery on 01/06/14, complicated by acute blood loss anemia secondary to retroperitoneal hematoma requiring multiple blood transfusions pressors in ICU, stabilized for the past 3 days, admitted to hospital floor for further monitoring. <Grazyna Cota PA-C - Last Filed: 01/14/24 14:07> Quality Stroke Does the patient have a stroke diagnosis?: No <Grazyna Cota PA-C - Last Filed: 01/14/24 14:07> VTE Prior VTE?: No <Grazyna Cota PA-C - Last Filed: 01/14/24 14:07> VTE Risk Level:: Surgical - high <Grazyna Cota PA-C - Last Filed: 01/14/24 14:07> VTE Device Contraindication: N/A - Device Ordered <ELDON Ellington Last Filed: 01/14/24 14:07> VTE Drug Contraindication: Treatment Not Indicated <Grazyna Cota PA-C - Last Filed: 01/14/24 14:07>
--- NOTE | 2024-01-14 13:55 | P.EN_ITS ---
Event Note Date of Service: 01/14/24 Event Note: I have seen and evaluated the patient and agree with history, findings, assessment and plan documented by Sera Saxena PA-c. Her full progress note is to follow up. We evaluated the patient this morning in the ICU. He appears to be doing relatively well after reviewing all the events of the past weekend. He was transfused 9 units of packed red blood cells. He at the current time is up in a chair tolerating a regular diet actually had a bowel movement this morning. We did assess the right lower extremity and it appears that the graft may be occluded. Unfortunately due to all the events we will not intervene on this at the current time. This was discussed with the patient. He was in agreement. His H&H remained stable over the last day. He will be transferred up to a floor. I do think this will be a prolonged recovery as he did have significant blood and blood product transfusion. We will closely monitor his progress. Thank you to the dielectric testing machine operator and hospitalist for their care in this patient. Time Spent With Patient Time: Total time managing care of this patient today ____ minutes.
--- NOTE | 2024-01-14 14:27 | HO.VASCPN ---
Subjective Subjective Date of Service: 01/14/24 Interval history: Zan is doing a little better this morning. He is out of bed and eating a little bit. He continues to drink well. He states he generally feels better. He continues with discomfort/numbness in his right foot. He states he has been feeling very hot in his room; nursing was able to get him a box fan, which he states has been helping. Physical Exam Vital Signs: Vital Signs: Last Vital Signs Temp 98.3 F 01/14/24 12:00 Pulse 84 01/14/24 12:00 Resp 20 01/14/24 12:00 BP 136/66 01/14/24 12:00 Pulse Ox 95 01/14/24 12:00 O2 Del Method Room Air 01/14/24 12:00 O2 Flow Rate 2 01/08/24 09:15 FiO2 30 01/11/24 18:00 BMI result Body Mass Index 28.7 Const: General: comfortable and no acute distress Orientation/consciousness: patient oriented x3 HEENT: Ears: hearing grossly normal bilaterally Resp: Effort & Inspection: normal respiratory effort and able to speak in complete sentences Auscultation: clear to auscultation bilaterally Cardio: Rate: regular rate Rhythm: regular rhythm Heart sounds: S1 normal heart sound present and S2 normal heart sound present Bruits: no abdominal aortic bruits, no carotid bruits, no femoral bruits and no renal bruits GI: Palpation (GI): No Abdominal aortic bruit present Neuro: General: patient oriented x3 Cranial nerves: Yes CN's II-XII intact bilaterally Extrem: Other: Right foot: pulses difficult to obtain through Doppler. No palpable pulses. Foot and lower leg cool to the touch. Progress Note: A&P Assessment and plan (1) Peripheral arterial disease: Status: Chronic Assessment and Plan: Zan is doing better. He has been maintaining his H/H and has not needed any blood transfusions the last couple of days. He states he is feeling a little better. He will be moving upstairs to the med/surg floor later today; he appears to have stabilized. We will start him on ASA daily. We will continue to monitor him. At this point, we will need to do further evaluation and treatment in the outpatient setting. He will likely need a few more days inpatient to stabilize. If there are any questions or concerns, please do not hesitate to reach out to us. Time Spent With Patient Time: Total time managing care of this patient today ____ minutes. Procedures Date of Service Date of Service: 01/14/24 Quality Stroke Does the patient have a stroke diagnosis?: No VTE Prior VTE?: No VTE Risk Level:: Surgical - high VTE Device Contraindication: N/A - Device Ordered VTE Drug Contraindication: Treatment Not Indicated
[2024-01-14 21:20] LABS: Hematocrit 23.5 % (42.0-52.0); Hemoglobin 7.9 g/dl (14.0-18.0)
[2024-01-14] MEDS: cefTRIAXone sodium 2 GM VIAL IVPUSH (22:51)
[2024-01-15] VITALS (8 sets, daily range): BP systolic 115–145; BP diastolic 62–73; PULSE 70–81; RESP 13–18; TEMP 36.2–37.1; O2SAT 91–98; BMI 28.7
[2024-01-15] MEDS: Atorvastatin Calcium 10 MG TABLET PO (08:47)
[2024-01-15] MEDS: Aspirin Enteric Coated 81 MG TABLET.DR PO (08:47)
[2024-01-15] MEDS: 0.9 % Sodium Chloride Flush 3 ML SYRINGE IVFLUSH ×2 (08:48→15:35)
[2024-01-15] MEDS: Docusate Sodium 100 MG CAPSULE PO ×2 (08:48→22:36)
--- NOTE | 2024-01-15 09:14 | P.DS_ITS ---
DS: Providers Provider Date of Service: 01/15/24 Date of admission: 01/07/24 10:38 Date of discharge: 01/15/24 Primary care physician: Quinton Callahan MD Consults: 01/07/24 16:28 Consult to Wound Care Routine Reason for consultation: Right foot, great toe dorsal venous ulcer. Pic taken. Has provider been notified: Yes 01/14/24 12:26 Consult to Hospitalist Routine Comment: Consulting Provider: Hospitalist Reason For Exam: continued medical care DS: Diagnosis Discharge Diagnosis (1) Vascular graft thrombosis: Status: Acute (2) Peripheral arterial disease: Status: Chronic (3) Retroperitoneal hematoma: Status: Acute (4) S/P angiogram of extremity: Status: Acute (5) Acute blood loss anemia: Status: Acute (6) Hydronephrosis: Status: Acute (7) Hemorrhagic shock: Status: Resolved DS: Summary Hospital Course Hospital Course: Patient is a 63-year-old male with a past medical history significant for COPD, PID, splenic vein thrombosis, AFib, BPH and prior right-sided popliteal bypasses with occlusion now s/p placement of R popliteal intra-arterial tPA catheter by vascular surgery Dr. Knott on 01/07/2024. On 01/08/2024 repeat fluoroscopy with demonstration of improved graft patency, but with development of post procedural left-sided retroperitoneal hematoma and subsequent hemorrhagic shock, requiring pressor support and 3 units PRBC. Heparin drip was stopped on 01/08/2024 but resumed on 01/09/2024 by vascular surgery, hemoglobin stabilized and patient was off pressors. he was transferred to the medical floor on 01/09 and became tachycardic in the 180s, concern for a fib/flutter, with a hemoglobin of 3.7, repeat 3.3 and heparin drip was held. He was given an additional 4 units of RBC, 1 FFP and [address] showed large left renal subcapsular hematoma increased in size when compared to prior exam on 01/08/2024, measuring up to 17.5 cm, previously 3.0 cm. Transfer to [facility] were declined and he was transferred back to the ICU. Hemoglobin has remained stable over the past 3 days, transferred back to telemetry floor 01/14/24 for continued monitoring. H+H remains stable since 01/11/24, around 8. no further blood transfusions needed. BPs normal, abd pain improved. Pt would like to go home. Status at Discharge Functional status at discharge: uses cane/walker Overall status at discharge: patient is progressing back to baseline Time Attestation Discharge Coordination Time (in mins): 45 Quality: Safe Use of Opioids Does Pt have an Active Cancer Diagnosis on the Problem List?: No Quality: Stroke Does the patient have a stroke diagnosis?: No Physical Exam Vital Signs: Vital Signs: Last Vital Signs Temp 98.5 F 01/15/24 07:47 Pulse 80 01/15/24 07:47 Resp 18 01/15/24 07:47 BP 122/62 01/15/24 07:47 Pulse Ox 97 01/15/24 07:47 O2 Del Method Room Air 01/15/24 07:47 O2 Flow Rate 2 01/08/24 09:15 FiO2 30 01/11/24 18:00 BMI result Body Mass Index 28.7 General: AOx3, no acute distress Resp: CTA bilaterally CVS: S1, S2, RRR GI: +BS, NT, no distention Skin: Warm, dry Neuro: Cranial nerves II-XII grossly intact bilaterally. Motor grossly intact bilaterally Extremities: No edema Psych: Appropriate affect DS: Data Data Completed and Pending Completed studies during hospitalization [Text1]: Procedures Bypass Right Femoral Artery to Popliteal Artery with Autologous Venous Tissue, Open Approach (08/13/23) Excision of Right Saphenous Vein, Open Approach (08/13/23) Labs on day of discharge: Laboratory Results - last 24 hr 01/07/24 01/14/24 09:06 21:11 Hgb 7.9 L Hct 23.5 L Activated Clotting Time Discharge Plan Discharge Anticipated Discharge Date/Time: 01/15/24 09:31 Discharge Diagnosis: s/p intra-arterial tPA catheter left popliteal artery complicated by hemorrhagic shock secondary to left renal hematoma Referrals: Quinton Callahan MD [Primary Care Provider] - 1 Week Discharge Medications: No Action aspirin [Luis Low Dose Aspirin] 81 mg Tablet,Delayed Release (Dr/Ec) 81 mg PO DAILY tamsulosin 0.4 mg Capsule 0.8 mg PO DAILY pantoprazole 40 mg Tablet,Delayed Release (Dr/Ec) 80 mg PO DAILY@0630 Centrum Silver Men [id number] mcg Tablet 1 tab PO DAILY ascorbic acid (vitamin C) [Vitamin C] 500 mg Tablet 500 mg PO DAILY nystatin 100,000 unit/gram powder 1 appl topical BID PRN (Reason: Rash) albuterol sulfate 90 mcg/actuation HFA aerosol inhaler 2 puff inhalation Q4H PRN (Reason: shortness of breath or wheezing) Incruse Ellipta 62.5 mcg/actuation blister with device 1 inh INHALATION DAILY atorvastatin 10 mg tablet 10 mg PO DAILY fluticasone propion-salmeterol [Wixela Inhub] 500-50 mcg/dose blister with device 1 inh inhalation Q12H Qty: 60 6RF ipratropium-albuterol 0.5 mg-3 mg(2.5 mg base)/3 mL solution for nebulization 3 ml inhalation BID PRN (Reason: wheezing) Qty: 180 0RF gabapentin 400 mg capsule 400 mg PO QID PRN (Reason: pain) Eliquis 5 mg tablet 5 mg PO BID metoprolol succinate 25 mg tablet extended release 24 hr 25 mg PO DAILY Diet: Regular diet Print Language: Yoruba Activity Restrictions/Additional Instructions: Topical Wound Care Recommendations: Right Great Toe - Cleane with NS, pat dry. Apply Iodosorb to wound bed cover with gauze and tape. ?Change every other day to start, note the product will be applied brown and over the course of time as the Betadine is absorbed into the wound bed the color will change to yellow / cream signifying time to replace the product.?Iodosorb tube left at bedside available from wound care nurse. Recommend continued follow up with Dr. Knott Vascular Surgeon for outpatient follow up.? His office is located at [address] [place] [address] [id number], [place] [address], call for an appointment at time of discharge [phone]
[2024-01-15] MEDS: Ascorbic Acid 500 MG TABLET PO (09:23)
[2024-01-15] MEDS: Multivitamin TABLET 1 TAB PO (09:23)
[2024-01-15] MEDS: Metoprolol Succinate ER 25 MG TAB.ER.24H PO (09:23)
[2024-01-15] MEDS: Tamsulosin HCL 0.4 MG CAPSULE 0.8 MG PO (09:23)
--- NOTE | 2024-01-15 09:38 | HO.PM.IMPN ---
Subjective Subjective Date of Service: 01/15/24 Interval History: Patient is a 63-year-old male with a past medical history significant for COPD, PID, splenic vein thrombosis, AFib, BPH and prior right-sided popliteal bypasses with occlusion now status post placement of intra-arterial tPA catheter by vascular surgery Dr. Knott on 01/07/2024. On 01/08/2024 repeat fluoroscopy with demonstration of improved graft patency, but with development of post procedural left-sided retroperitoneal hematoma requiring pressor support and 3 units PRBC. Heparin drip was stopped on 01/08/2024 but resumed on 01/09/2024 by vascular surgery, hemoglobin stabilized and patient was off pressors 01/09/24, transferred to the medical floor on 01/09 and became tachycardic in the 180s with a hemoglobin of 3.3 and heparin drip was held. He was given an additional 4 units of RBC, 1 FFP and [address] showed large left renal subcapsular hematoma increased in size when compared to prior exam on 01/08/2024, measuring up to 17.5 cm, previously 3.0 cm. Hemoglobin has remained stable over the past 3 days, transferred to the floor today for continued monitoring. Physical Exam Vital Signs: Vital Signs: Last Vital Signs Temp 98.5 F 01/15/24 07:47 Pulse 80 01/15/24 07:47 Resp 18 01/15/24 07:47 BP 122/62 01/15/24 09:23 Pulse Ox 97 01/15/24 07:47 O2 Del Method Room Air 01/15/24 07:47 O2 Flow Rate 2 01/08/24 09:15 FiO2 30 01/11/24 18:00 BMI result Body Mass Index 28.7 General: AOx3, no acute distress Resp: crackles bilaterally CVS: S1, S2, RRR GI: +BS, generalized tenderness, mild distention Skin: Warm, dry Extremities: No edema Psych: Appropriate affect Objective Data Active Medications Acetaminophen (Acetaminophen 325 Mg Tablet) 650 mg PO Q4H PRN PRN Reason: Pain, Mild (Pain Scale 1-3) Last Admin: 01/14/24 19:57 Dose: 650 mg Documented By: HOBlancaBOURQC Albuterol Sulfate (Albuterol Sulfate (0.083%) 2.5 Mg/3 Ml Vial.Neb) 2.5 mg INHALE Q4H PRN PRN Reason: Shortness of Breath/Wheezing Last Admin: 01/09/24 05:04 Dose: 2.5 mg Documented By: JOANA Albuterol Sulfate (Albuterol Sulfate 90 Mcg 8 Gm Inhaler) 2 puff INHALE Q4H PRN PRN Reason: shortness of breath or wheezing Albuterol/Ipratropium (Albuterol/Iprat 2.5/0.5mg 3 Ml Ampul.Neb) 3 ml INHALE BID PRN PRN Reason: wheezing Ascorbic Acid (Ascorbic Acid 500 Mg Tablet) 500 mg PO DAILY [facility] Last Admin: 01/15/24 09:23 Dose: 500 mg Documented By: RAJINDER Aspirin (Aspirin Enteric Coated 81 Mg Tablet.) 81 mg PO DAILY [facility] Last Admin: 01/15/24 08:47 Dose: 81 mg Documented By: RAJINDER Atorvastatin Calcium (Atorvastatin Calcium 10 Mg Tablet) 10 mg PO DAILY [facility] Last Admin: 01/15/24 08:47 Dose: 10 mg Documented By: RAJINDER Ceftriaxone Sodium (Ceftriaxone Sodium 2 Gm Vial) 2 gm IVPUSH Q24H [facility] Last Admin: 01/14/24 22:51 Dose: 2 gm Documented By: ROSA Docusate Sodium (Docusate Sodium 100 Mg Capsule) 100 mg PO BID [facility] Last Admin: 01/15/24 08:48 Dose: 100 mg Documented By: RAJINDER Fluticasone/Vilanterol (Fluticasone/Vilanterol 200/25 Blst.W.Dev) 1 puff INHALE RDAILY [facility] Hydromorphone HCl (Hydromorphone Hcl 1 Mg/Ml Syringe) 1 mg IVPUSH Q2H PRN; Protocol PRN Reason: Pain, Severe (Pain Scale 7-10) Last Admin: 01/11/24 05:05 Dose: 1 mg Documented By: SARTHAK Metoprolol Succinate (Metoprolol Succinate Er 25 Mg Tab.Er.24h) 25 mg PO DAILY [facility]; Protocol Last Admin: 01/15/24 09:23 Dose: 25 mg Documented By: RAJINDER Multivitamins/Vitamin C (Multivitamin Tablet) 1 tab PO DAILY [facility] Last Admin: 01/15/24 09:23 Dose: 1 tab Documented By: RAJINDER Nystatin (Nystatin Powder 15 Gm Bottle) 1 appl TOPICAL BID PRN; Protocol PRN Reason: Rash Olanzapine (Olanzapine 10 Mg Vial) 5 mg IM DAILY PRN PRN Reason: anxiety/restlessness Ondansetron HCl (Ondansetron Hcl 4 Mg/2 Ml Vial) 4 mg IVPUSH Q4H PRN PRN Reason: Nausea and Vomiting Last Admin: 01/08/24 11:25 Dose: 4 mg Documented By: MAYA Oxycodone HCl (Oxycodone Hcl Immed Release 15 Mg Tablet) 15 mg PO Q4H PRN PRN Reason: Pain, Moderate(Pain Scale 4-6) Last Admin: 01/14/24 16:53 Dose: 15 mg Documented By: VAHE Pantoprazole Sodium (Pantoprazole Sodium 20 Mg Tablet.) 80 mg PO DAILY@0630 [facility] Polyethylene Glycol (Polyethylene Glycol 3350 17 Gm Powd.Pack) 17 gm PO DAILY PRN PRN Reason: Constipation Last Admin: 01/13/24 07:45 Dose: 17 gm Documented By: CHELSIE Sodium Chloride (0.9 % Sodium Chloride Flush 3 Ml Syringe) 3 ml IVFLUSH QSHIFT [facility] Last Admin: 01/15/24 08:48 Dose: 3 ml Documented By: RAJINDER Tamsulosin HCl (Tamsulosin Hcl 0.4 Mg Capsule) 0.8 mg PO DAILY [facility] Last Admin: 01/15/24 09:23 Dose: 0.8 mg Documented By: RAJINDER Labs 01/14/24 21:11 01/14/24 05:14 Labs: Laboratory Results - last 24 hr 01/07/24 09:06 Activated Clotting Time Assessment and Plan (1) Peripheral arterial disease: Status: Chronic (2) Retroperitoneal hematoma: Status: Acute (3) S/P angiogram of extremity: Status: Acute (4) Vascular graft thrombosis: Status: Acute (5) Acute blood loss anemia: Status: Acute (6) Hydronephrosis: Status: Acute (7) Hemorrhagic shock: Status: Resolved Plan 63-year-old male with a past medical history significant for COPD, PAD, splenic vein thrombosis, AFib, BPH and prior right-sided popliteal bypasses with occlusion status post placement of intra arterial t-PA catheter by vascular surgery Dr. Berg on 01/07/24 complicated by postprocedural left-sided retroperitoneal hematoma requiring multiple blood transfusions and pressor support, H and H and pressure is stabilized Acute blood loss anemia - Secondary to retroperitoneal hematoma, H+H stable since 01/11/2024 - daily cbc - continue pantoprazole 80 mg daily - Aspirin restarted for peripheral artery disease, we will closely monitor for any hemodynamic changes -hold eliquis until ok with vascular surgery Peripheral artery disease - right-sided popliteal bypasses with recurrent occlusion, s/p placement of intra-arterial tPA catheter - on atorvastatin, aspirin restarted COPD, unspecified - no acute exacerbation -continue home inhalers AFib - eliquis is being on hold d/t anemia - continue metoprolol 25 mg daily BPH - continue tamsulosin Full code VTE prophylaxis: Compression therapy secondary to recent bleed Patient s/p placement of intra-arterial tPA catheter by vascular surgery on 01/06/14, complicated by acute blood loss anemia secondary to retroperitoneal hematoma requiring multiple blood transfusions pressors in ICU, stabilized for the past 3 days, admitted to hospital floor for further monitoring. Quality Stroke Does the patient have a stroke diagnosis?: No VTE Prior VTE?: No VTE Risk Level:: Surgical - high VTE Device Contraindication: N/A - Device Ordered VTE Drug Contraindication: Treatment Not Indicated
[2024-01-15 10:40] LABS: Hemoglobin 8.4 g/dl (14.0-18.0); Mean Corpuscular HGB Conc 33.6 g/dl (31.0-36.0); Mean Corpuscular Hemoglobin 31.3 pg (27.0-33.0); Mean Corpuscular Volume 93.3 fL (80.0-98.0); Mean Platelet Volume 9.2 fL (9.4-12.4); Platelet Count 370 X10*3/uL (160-400); Red Blood Count 2.68 X10*6/uL (4.60-5.80); Red Cell Distribution Width 14.3 % (11.0-16.0); White Blood Count 12.7 X10*3/uL (4.8-10.8)
--- NOTE | 2024-01-15 10:59 | P.PNVS_ITS ---
Subjective Subjective Date of Service: 01/15/24 Interval history: Zan is doing well this morning. He states he is drinking well, but not eating as much. He is getting out of bed and states he worked with PT yesterday. He states he is still a little fuzzy about last week and what happened. He states with walking with the walker he is feeling good. Physical Exam Vital Signs: Vital Signs: Last Vital Signs Temp 98.5 F 01/15/24 07:47 Pulse 80 01/15/24 07:47 Resp 18 01/15/24 07:47 BP 122/62 01/15/24 09:23 Pulse Ox 97 01/15/24 07:47 O2 Del Method Room Air 01/15/24 07:47 O2 Flow Rate 2 01/08/24 09:15 FiO2 30 01/11/24 18:00 BMI result Body Mass Index 28.7 Const: General: comfortable and no acute distress Orientation/consciousness: patient oriented x3 HEENT: Ears: hearing grossly normal bilaterally Resp: Effort & Inspection: normal respiratory effort and able to speak in complete sentences Auscultation: clear to auscultation bilaterally Cardio: Rate: regular rate Rhythm: regular rhythm Heart sounds: S1 normal heart sound present and S2 normal heart sound present Bruits: no abdominal aortic bruits, no carotid bruits, no femoral bruits and no renal bruits GI: Palpation (GI): No Abdominal aortic bruit present Neuro: General: patient oriented x3 Cranial nerves: Yes CN's II-XII intact bilaterally Extrem: Other: Right lower extremity: foot cool to the touch. Pulses not palpable. Progress Note: A&P Assessment and plan (1) Vascular graft thrombosis: Status: Acute Assessment and Plan: Zan is remaining stable. He has been getting out of bed and states he is f eeling better. We had a discussion this morning about last week, he states the events are fuzzy to him. We discussed to have PT work with him with possibility of discharge later this week if he remains stable. We have ordered a CBC as well as PT referral to continue working with him. His Hgb has stabilized at 8.4 this morning, up from 7.8 and 7.9 yesterday. We will continue to monitor. We will order another CBC tomorrow morning. Time Spent With Patient Time: Total time managing care of this patient today ___30_ minutes. Procedures Date of Service Date of Service: 01/15/24 Quality Stroke Does the patient have a stroke diagnosis?: No VTE Prior VTE?: No VTE Risk Level:: Surgical - high VTE Device Contraindication: N/A - Device Ordered VTE Drug Contraindication: Treatment Not Indicated
[2024-01-15] MEDS: Fluticasone/Vilanterol 200/25 BLST.W.DEV 1 PUFF INHALE (12:09)
[2024-01-15] MEDS: oxyCODONE HCl Immed Release 15 MG TABLET PO ×2 (15:35→22:25)
[2024-01-15] MEDS: cefTRIAXone sodium 2 GM VIAL IVPUSH (22:36)
[2024-01-16 03:29] VITALS: BP 122/77; PULSE 74; RESP 18; TEMP 36.7; O2SAT 98
[2024-01-16 06:00] VITALS: BMI 28.7
[2024-01-16] MEDS: Pantoprazole Sodium 20 MG TABLET.DR 80 MG PO (06:15)
[2024-01-16] MEDS: oxyCODONE HCl Immed Release 15 MG TABLET PO ×2 (06:20→12:19)
[2024-01-16 07:00] LABS: Hematocrit 24.8 % (42.0-52.0); Hemoglobin 8.2 g/dl (14.0-18.0); Mean Corpuscular HGB Conc 33.1 g/dl (31.0-36.0); Mean Corpuscular Hemoglobin 30.8 pg (27.0-33.0); Mean Corpuscular Volume 93.2 fL (80.0-98.0); Mean Platelet Volume 8.8 fL (9.4-12.4); Platelet Count 365 X10*3/uL (160-400); Red Blood Count 2.66 X10*6/uL (4.60-5.80); Red Cell Distribution Width 13.8 % (11.0-16.0); White Blood Count 9.9 X10*3/uL (4.8-10.8)
[2024-01-16] MEDS: Fluticasone/Vilanterol 200/25 BLST.W.DEV 1 PUFF INHALE (07:23)
[2024-01-16 07:25] VITALS: PULSE 73; RESP 18; O2SAT 96
[2024-01-16 07:55] VITALS: PULSE 73
[2024-01-16 07:56] VITALS: BP 126/84; PULSE 78; RESP 20; TEMP 36.4; O2SAT 96
[2024-01-16 09:25] VITALS: BP 126/60; PULSE 70
[2024-01-16] MEDS: Multivitamin TABLET 1 TAB PO (09:25)
[2024-01-16] MEDS: Ascorbic Acid 500 MG TABLET PO (09:25)
[2024-01-16] MEDS: Atorvastatin Calcium 10 MG TABLET PO (09:25)
[2024-01-16] MEDS: Docusate Sodium 100 MG CAPSULE PO (09:25)
[2024-01-16] MEDS: Metoprolol Succinate ER 25 MG TAB.ER.24H PO (09:25)
[2024-01-16] MEDS: Aspirin Enteric Coated 81 MG TABLET.DR PO (09:25)
[2024-01-16] MEDS: Tamsulosin HCL 0.4 MG CAPSULE 0.8 MG PO (09:26)
[2024-01-16] MEDS: 0.9 % Sodium Chloride Flush 3 ML SYRINGE IVFLUSH ×2 (09:27)
[2024-01-16 11:13] VITALS: BP 143/73; PULSE 77; RESP 20; TEMP 36.7; O2SAT 97
--- NOTE | 2024-01-16 11:30 | P.DS_ITS ---
DS: Providers Provider Date of Service: 01/16/24 Date of admission: 01/07/24 10:38 Primary care physician: Quinton Callahan MD Consults: 01/07/24 16:28 Consult to Wound Care Routine Reason for consultation: Right foot, great toe dorsal venous ulcer. Pic taken. Has provider been notified: Yes 01/14/24 12:26 Consult to Hospitalist Routine Comment: Consulting Provider: Hospitalist Reason For Exam: continued medical care DS: Diagnosis Discharge Diagnosis (1) Vascular graft thrombosis: Status: Acute DS: Summary Hospital Course Hospital Course: Patient is a 63-year-old male with a past medical history significant for COPD, PID, splenic vein thrombosis, AFib, BPH and prior right-sided popliteal bypasses with occlusion now s/p placement of R popliteal intra-arterial tPA catheter by vascular surgery Dr. Knott on 01/07/2024. On 01/08/2024 repeat fluoroscopy with demonstration of improved graft patency, but with development of post procedural left-sided retroperitoneal hematoma and subsequent hemorrhagic shock, requiring pressor support and 3 units PRBC. Heparin drip was stopped on 01/08/2024 but resumed on 01/09/2024 by vascular surgery, hemoglobin stabilized and patient was off pressors. he was transferred to the medical floor on 01/09 and became tachycardic in the 180s, concern for a fib/flutter, with a hemoglobin of 3.7, repeat 3.3 and heparin drip was held. He was given an additional 4 units of RBC, 1 FFP and [address] showed large left renal subcapsular hematoma increased in size when compared to prior exam on 01/08/2024, measuring up to 17.5 cm, previously 3.0 cm. Transfer to [facility] were declined and he was transferred back to the ICU. Hemoglobin has remained stable over the past 3 days, transferred back to telemetry floor 01/14/24 for continued monitoring. H+H remains stable since 01/11/24, around 8. no further blood transfusions needed. BPs normal, abd pain improved. Patient continues to remain stable and will be discharged home today. We will see him back in the office in the next 2 weeks. Time Attestation Discharge Coordination Time (in mins): Forty-five Quality: Safe Use of Opioids Does Pt have an Active Cancer Diagnosis on the Problem List?: No Quality: Stroke Does the patient have a stroke diagnosis?: No Physical Exam Vital Signs: Vital Signs: Last Vital Signs Temp 98.1 F 01/16/24 11:13 Pulse 77 01/16/24 11:13 Resp 20 01/16/24 11:13 BP 143/73 H 01/16/24 11:13 Pulse Ox 97 01/16/24 11:13 O2 Del Method Room Air 01/16/24 11:13 O2 Flow Rate 2 01/08/24 09:15 FiO2 30 01/11/24 18:00 BMI result Body Mass Index 28.7 Const: General: comfortable and no acute distress Orientation/consciousness: patient oriented x3 HEENT: Ears: hearing grossly normal bilaterally Resp: Effort & Inspection: normal respiratory effort and able to speak in complete sentences Auscultation: clear to auscultation bilaterally Cardio: Rate: regular rate Rhythm: regular rhythm Heart sounds: S1 normal heart sound present and S2 normal heart sound present Bruits: no abdominal aortic bruits, no carotid bruits, no femoral bruits and no renal bruits GI: Palpation (GI): No Abdominal aortic bruit present Neuro: General: patient oriented x3 Cranial nerves: Yes CN's II-XII intact bilaterally Extrem: Other: Right foot wrapped. Wound care directions per wound care nurse. DS: Data Data Completed and Pending Completed studies during hospitalization [Text1]: Procedures Bypass Right Femoral Artery to Popliteal Artery with Autologous Venous Tissue, Open Approach (08/13/23) Excision of Right Saphenous Vein, Open Approach (08/13/23) Labs on day of discharge: Laboratory Results - last 24 hr 01/16/24 06:38 WBC 9.9 RBC 2.66 L Hgb 8.2 L Hct 24.8 L MCV 93.2 MCH 30.8 MCHC 33.1 RDW 13.8 Plt Count 365 MPV 8.8 L Absolute Nucleated RBC 0.000 Nucleated RBC % (auto) 0.0 Discharge Plan Discharge Anticipated Discharge Date/Time: 01/16/24 11:25 Patient Disposition: Home, Self-Care Discharge Diagnosis: s/p intra-arterial tPA catheter left popliteal artery complicated by hemorrhagic shock secondary to left renal hematoma Referrals: Quinton Callahan MD [Primary Care Provider] - 1 Week Discharge Medications: Continued aspirin [Luis Low Dose Aspirin] 81 mg Tablet,Delayed Release (Dr/Ec) 81 mg PO DAILY tamsulosin 0.4 mg Capsule 0.8 mg PO DAILY pantoprazole 40 mg Tablet,Delayed Release (Dr/Ec) 80 mg PO DAILY@0630 Centrum Silver Men [phone] mcg Tablet 1 tab PO DAILY ascorbic acid (vitamin C) [Vitamin C] 500 mg Tablet 500 mg PO DAILY nystatin 100,000 unit/gram powder 1 appl topical BID PRN (Reason: Rash) albuterol sulfate 90 mcg/actuation HFA aerosol inhaler 2 puff inhalation Q4H PRN (Reason: shortness of breath or wheezing) Incruse Ellipta 62.5 mcg/actuation blister with device 1 inh INHALATION DAILY atorvastatin 10 mg tablet 10 mg PO DAILY fluticasone propion-salmeterol [Wixela Inhub] 500-50 mcg/dose blister with device 1 inh inhalation Q12H Qty: 60 6RF ipratropium-albuterol 0.5 mg-3 mg(2.5 mg base)/3 mL solution for nebulization 3 ml inhalation BID PRN (Reason: wheezing) Qty: 180 0RF gabapentin 400 mg capsule 400 mg PO QID PRN (Reason: pain) Eliquis 5 mg tablet 5 mg PO BID metoprolol succinate 25 mg tablet extended release 24 hr 25 mg PO DAILY Discharge Orders: Discharge Order (Routine); Ordered 01/16/24 Ordered By: Sera Saxena Diet: Regular diet Activity on Discharge: As tolerated Stand Alone Forms: Patient Portal Discharge page Print Language: Icelandic Activity Restrictions/Additional Instructions: Topical Wound Care Recommendations: Right Great Toe - Cleane with NS, pat dry. Apply Iodosorb to wound bed cover with gauze and tape. ?Change every other day to start, note the product will be applied brown and over the course of time as the Betadine is absorbed into the wound bed the color will change to yellow / cream signifying time to replace the product.?Iodosorb tube left at bedside available from wound care nurse. Recommend continued follow up with Dr. Knott Vascular Surgeon for outpatient follow up.? His office is located at [address] [place] [address] [address], [place] [address], call for an appointment at time of discharge [phone] Care Plan Goals: Continue with wound care as mentioned above. Follow up with the office in 2 weeks. Health Concerns: Use caution when ambulating with the right foot. Plan of Treatment: Physical therapy at home. Follow up in our office in the next 2 weeks. Assessment: Status post thrombolysis with postop complications including a hematoma which required multiple units of packed red blood cells. Patient stable to be discharged home today.
--- NOTE | 2024-01-16 11:41 | HO.PM.IMPN ---
Subjective Subjective Date of Service: 01/16/24 Interval History: Patient is a 63-year-old male with a past medical history significant for COPD, PID, splenic vein thrombosis, AFib, BPH and prior right-sided popliteal bypasses with occlusion now status post placement of intra-arterial tPA catheter by vascular surgery Dr. Knott on 01/07/2024. On 01/08/2024 repeat fluoroscopy with demonstration of improved graft patency, but with development of post procedural left-sided retroperitoneal hematoma requiring pressor support and 3 units PRBC. Heparin drip was stopped on 01/08/2024 but resumed on 01/09/2024 by vascular surgery, hemoglobin stabilized and patient was off pressors 01/09/24, transferred to the medical floor on 01/09 and became tachycardic in the 180s with a hemoglobin of 3.3 and heparin drip was held. He was given an additional 4 units of RBC, 1 FFP and [address] showed large left renal subcapsular hematoma increased in size when compared to prior exam on 01/08/2024, measuring up to 17.5 cm, previously 3.0 cm. Hemoglobin has remained stable over the past 3 days, transferred to the floor today for continued monitoring. He has been having assymptomatic intermittent episodes of sinus tachycardia with PAC that self terminate Physical Exam Vital Signs: Vital Signs: Last Vital Signs Temp 98.1 F 01/16/24 11:13 Pulse 77 01/16/24 11:13 Resp 20 01/16/24 11:13 BP 143/73 H 01/16/24 11:13 Pulse Ox 97 01/16/24 11:13 O2 Del Method Room Air 01/16/24 11:13 O2 Flow Rate 2 01/08/24 09:15 FiO2 30 01/11/24 18:00 BMI result Body Mass Index 28.7 Const: Other: General: AO X 3, no acute distress Resp: CTA bilateral CVS: S1,S2,RRR GI: +BS, NT, no distention Skin: No rash Neuro: motor grossly intact Psych: appropriate affect Objective Data Active Medications Acetaminophen (Acetaminophen 325 Mg Tablet) 650 mg PO Q4H PRN PRN Reason: Pain, Mild (Pain Scale 1-3) Last Admin: 01/14/24 19:57 Dose: 650 mg Documented By: LAYTONQC Albuterol Sulfate (Albuterol Sulfate 90 Mcg 8 Gm Inhaler) 2 puff INHALE Q4H PRN PRN Reason: shortness of breath or wheezing Albuterol/Ipratropium (Albuterol/Iprat 2.5/0.5mg 3 Ml Ampul.Neb) 3 ml INHALE BID PRN PRN Reason: wheezing Ascorbic Acid (Ascorbic Acid 500 Mg Tablet) 500 mg PO DAILY [facility] Last Admin: 01/16/24 09:25 Dose: 500 mg Documented By: LAINEY Aspirin (Aspirin Enteric Coated 81 Mg Tablet.Dr) 81 mg PO DAILY [facility] Last Admin: 01/16/24 09:25 Dose: 81 mg Documented By: LAINEY Atorvastatin Calcium (Atorvastatin Calcium 10 Mg Tablet) 10 mg PO DAILY [facility] Last Admin: 01/16/24 09:25 Dose: 10 mg Documented By: LAINEY Ceftriaxone Sodium (Ceftriaxone Sodium 2 Gm Vial) 2 gm IVPUSH Q24H [facility] Last Admin: 01/15/24 22:36 Dose: 2 gm Documented By: DELPHINE Docusate Sodium (Docusate Sodium 100 Mg Capsule) 100 mg PO BID [facility] Last Admin: 01/16/24 09:25 Dose: 100 mg Documented By: LAINEY Fluticasone/Vilanterol (Fluticasone/Vilanterol 200/25 Blst.W.Dev) 1 puff INHALE RDAILY [facility] Last Admin: 01/16/24 07:23 Dose: 1 puff Documented By: LALA Metoprolol Succinate (Metoprolol Succinate Er 25 Mg Tab.Er.24h) 25 mg PO DAILY [facility]; Protocol Last Admin: 01/16/24 09:25 Dose: 25 mg Documented By: LAINEY Multivitamins/Vitamin C (Multivitamin Tablet) 1 tab PO DAILY [facility] Last Admin: 01/16/24 09:25 Dose: 1 tab Documented By: LAINEY Nystatin (Nystatin Powder 15 Gm Bottle) 1 appl TOPICAL BID PRN; Protocol PRN Reason: Rash Olanzapine (Olanzapine 10 Mg Vial) 5 mg IM DAILY PRN PRN Reason: anxiety/restlessness Ondansetron HCl (Ondansetron Hcl 4 Mg/2 Ml Vial) 4 mg IVPUSH Q4H PRN PRN Reason: Nausea and Vomiting Last Admin: 01/08/24 11:25 Dose: 4 mg Documented By: MAYA Oxycodone HCl (Oxycodone Hcl Immed Release 15 Mg Tablet) 15 mg PO Q4H PRN PRN Reason: Pain, Moderate(Pain Scale 4-6) Last Admin: 01/16/24 06:20 Dose: 15 mg Documented By: DELPHINE Pantoprazole Sodium (Pantoprazole Sodium 20 Mg Tablet.) 80 mg PO DAILY@0630 [facility] Last Admin: 01/16/24 06:15 Dose: 80 mg Documented By: DELPHINE Polyethylene Glycol (Polyethylene Glycol 3350 17 Gm Powd.Pack) 17 gm PO DAILY PRN PRN Reason: Constipation Last Admin: 01/13/24 07:45 Dose: 17 gm Documented By: CHELSIE Sodium Chloride (0.9 % Sodium Chloride Flush 3 Ml Syringe) 3 ml IVFLUSH QSHIFT [facility] Last Admin: 01/16/24 09:27 Dose: 3 ml Documented By: LAINEY Tamsulosin HCl (Tamsulosin Hcl 0.4 Mg Capsule) 0.8 mg PO DAILY [facility] Last Admin: 01/16/24 09:26 Dose: 0.8 mg Documented By: LAINEY Labs 01/16/24 06:38 01/16/24 11:56 Labs: Laboratory Results - last 24 hr 01/16/24 06:38 MCV 93.2 MCH 30.8 MCHC 33.1 RDW 13.8 Plt Count 365 MPV 8.8 L Absolute Nucleated RBC 0.000 Nucleated RBC % (auto) 0.0 Assessment and Plan (1) Peripheral arterial disease: Status: Chronic (2) Retroperitoneal hematoma: Status: Acute (3) S/P angiogram of extremity: Status: Acute (4) Vascular graft thrombosis: Status: Acute (5) Acute blood loss anemia: Status: Acute (6) Hydronephrosis: Status: Acute (7) Hemorrhagic shock: Status: Resolved Plan 63-year-old male with a past medical history significant for COPD, PAD, splenic vein thrombosis, AFib, BPH and prior right-sided popliteal bypasses with occlusion status post placement of intra arterial t-PA catheter by vascular surgery Dr. Berg on 01/07/24 complicated by postprocedural left-sided retroperitoneal hematoma requiring multiple blood transfusions and pressor support, H and H and pressure is stabilized Acute blood loss anemia - Secondary to retroperitoneal hematoma, H+H stable since 01/11/2024 - daily cbc - continue pantoprazole 80 mg daily - Aspirin restarted for peripheral artery disease, we will closely monitor for any hemodynamic changes -hold eliquis until ok with vascular surgery Peripheral artery disease - right-sided popliteal bypasses with recurrent occlusion, s/p placement of intra-arterial tPA catheter - on atorvastatin, aspirin restarted COPD, unspecified - no acute exacerbation -continue home inhalers AFib - eliquis is being on hold d/t anemia - continue metoprolol 25 mg daily -he should be reassess on outpatient basis for resumption of eliquis -intermittently having episodes of what appear to be sinus tach with PAC--recommended wathing adjusting metoprolol to short acting but patient has opted to go home and recommends outpatient follow up with pcp k and mag are normal BPH - continue tamsulosin Full code VTE prophylaxis: Compression therapy secondary to recent bleed Patient s/p placement of intra-arterial tPA catheter by vascular surgery on 01/06/14, complicated by acute blood loss anemia secondary to retroperitoneal hematoma requiring multiple blood transfusions pressors in ICU, stabilized for the past 3 days, admitted to hospital floor for further monitoring. Quality Stroke Does the patient have a stroke diagnosis?: No VTE Prior VTE?: No VTE Risk Level:: Surgical - high VTE Device Contraindication: N/A - Device Ordered VTE Drug Contraindication: Treatment Not Indicated
[2024-01-16 12:40] LABS: Anion Gap 12 (12-20); Blood Urea Nitrogen 21 mg/dL (9-16); Calcium 9.4 mg/dL (8.4-10.2); Carbon Dioxide 25 mmol/L (22-29); Chloride 102 mmol/L (96-108); Creatinine Clr Calc Pharmacy 107.9; Estimated Glomerular Filt Rate > 60; Glucose Random 140 mg/dL (60-115); Magnesium 2.3 mg/dL (1.6-2.6); Potassium 4.2 mmol/L (3.3-5.1); Sodium 135 mmol/L (135-145)
--- NOTE | 2024-01-16 12:40 | MHC.CM.PN ---
Addendum entered by Karolina Krueger RN 01/16/24 13:13: DISCHARGE CANCELLED D/T CARDIAC ISSUES PER NSG, [facility] NOTIFIED. Original Note: IMM 01/16/24, PT MEDICALLY CLEARED FOR DC W/RESUMP OF [facility] FOR RESUMP OF SN AND NEW HOME PT, PT WILL CALL FAMILY FOR RIDE HOME AFTER LUNCH.
--- NOTE | 2024-01-16 15:04 | HO.WOUND ---
Wound Consult: D/C order follow up 63yr old? Male admitted to [facility] on 01/07/24 - See progress notes and H&P for detailed history.? Wound consult placed for Right Great Toe Wound.? Direct care team requests d/c orders for topical wound care discussed with JO Avila and based on her last assessment xeroform is recommendation. D/C topical orders updated. D/C plan is follow up outpt with Vascular Surgery Office.
--- NOTE | 2024-01-17 08:33 | MHC.CM.PN ---
PT DISCHARGED 01/16 AFTER CM LEFT FOR DAY AND AFTER DC HAD BEEN CANCELLED, NO CHANGE TO DC SUMMARY, [facility] UPDATED AT 8:26AM [phone].
== END 2024-01-16 15:28 | disposition home health service (06) | DRG 314 ==
LOC: HO.SSSA 10:38 → HO.ICU 10:40 → HO.IMC 01-10 13:12 → HO.ICU 01-10 20:01 → HO.IMC 01-14 11:32
PROVIDERS: Internal Medicine; Internal Medicine Critical Care Medicine; Physician Assistant Surgical; Registered Nurse Community Health; Admitting Provider Internal Medicine Pulmonary Disease; PCP Internal Medicine Medical Oncology; Visit Provider Surgery Vascular Surgery
PROC: 3E05317 Introduction of Other Thrombolytic into Peripheral Artery, Percutaneous Approach (ICD-10-PCS; principal; 2024-01-07 08:00)
DX: T82.392A Other mechanical complication of femoral arterial graft (bypass), initial encounter (principal); R57.8 Other shock; D62 Acute posthemorrhagic anemia; N99.841 Postprocedural hematoma of a genitourinary system organ or structure following other procedure; K91.871 Postprocedural hematoma of a digestive system organ or structure following other procedure; N13.30 Unspecified hydronephrosis; D68.32 Hemorrhagic disorder due to extrinsic circulating anticoagulants; T45.615A Adverse effect of thrombolytic drugs, initial encounter; I70.235 Atherosclerosis of native arteries of right leg with ulceration of other part of foot; L97.519 Non-pressure chronic ulcer of other part of right foot with unspecified severity; N40.0 Benign prostatic hyperplasia without lower urinary tract symptoms; J44.9 Chronic obstructive pulmonary disease, unspecified; F17.210 Nicotine dependence, cigarettes, uncomplicated; Z71.6 Tobacco abuse counseling; Z79.51 Long term (current) use of inhaled steroids; Z79.899 Other long term (current) drug therapy
CPT/HCPCS: 36415; 36600; 37213; 37228; 74177; 75630; 75898; 76937; 80048; 80053; 82040; 82565; 82803; 83605; 83735; 84100; 84520; 85014; 85018; 85025; 85027; 85347; 85384; 85610; 85730; 86850; 86900; 86901; 86923; 93005; 94640; 97116; 97162; 97530; 99152; 99153; C1725; C1751; C1760; C1769; C1887; C1894; J0613; J0696; J1171; J1265; J1644; J2250; J2270; J2310; J2405; J2470; J2997; J3010; J7120; P9016; P9017; P9047; P9073; Q9967

== ENCOUNTER 2024-01-07 10:38 | Outpatient (BNV) | payer MEDICARE, SELFPAY | END 2024-01-08 11:05 | PROVIDERS: Admitting Provider Internal Medicine Pulmonary Disease; PCP Internal Medicine Medical Oncology; Visit Provider Radiology Diagnostic Radiology | DX: K68.3 Retroperitoneal hematoma (principal) | CPT/HCPCS: 74177 ==

== ENCOUNTER → 2024-01-07 10:38 | Outpatient (BNV) | payer MEDICARE, SELFPAY | PROVIDERS: Admitting Provider Internal Medicine Pulmonary Disease; PCP Internal Medicine Medical Oncology; Visit Provider Surgery Vascular Surgery | DX: I73.9 Peripheral vascular disease, unspecified (principal) | CPT/HCPCS: 37211; 37213; 37228; 75625; 75710; 76937; 99152; 99232 ==

== ENCOUNTER → 2024-01-07 10:38 | Outpatient (BNV) | payer MEDICARE, SELFPAY | PROVIDERS: Admitting Provider Internal Medicine Pulmonary Disease; PCP Internal Medicine Medical Oncology; Visit Provider Surgery | DX: K68.3 Retroperitoneal hematoma (principal) | CPT/HCPCS: 99232; 99233; 99499 ==

== ENCOUNTER → 2024-01-07 10:38 | Outpatient (BNV) | payer MEDICARE, SELFPAY | PROVIDERS: Admitting Provider Internal Medicine Pulmonary Disease; PCP Internal Medicine Medical Oncology; Visit Provider Student in an Organized Health Care Education/Training Program | DX: R57.8 Other shock (principal); I73.9 Peripheral vascular disease, unspecified; K68.3 Retroperitoneal hematoma; T82.868A Thrombosis due to vascular prosthetic devices, implants and grafts, initial encounter; Z98.890 Other specified postprocedural states; D62 Acute posthemorrhagic anemia; N13.30 Unspecified hydronephrosis | CPT/HCPCS: 99232; 99499 ==

== ENCOUNTER → 2024-01-07 10:38 | Outpatient (BNV) | payer MEDICARE, SELFPAY | PROVIDERS: Admitting Provider Internal Medicine Pulmonary Disease; PCP Internal Medicine Medical Oncology; Visit Provider Internal Medicine Pulmonary Disease | DX: I73.9 Peripheral vascular disease, unspecified (principal); K68.3 Retroperitoneal hematoma; T86.19 Other complication of kidney transplant; S37.019A Minor contusion of unspecified kidney, initial encounter; R57.8 Other shock; D62 Acute posthemorrhagic anemia | CPT/HCPCS: 99223; 99232; 99291 ==

== ENCOUNTER → 2024-01-07 10:38 | Outpatient (BNV) | payer MEDICARE, SELFPAY | PROVIDERS: Admitting Provider Internal Medicine Pulmonary Disease; PCP Internal Medicine Medical Oncology; Visit Provider Registered Nurse Community Health | DX: T82.868A Thrombosis due to vascular prosthetic devices, implants and grafts, initial encounter (principal); I73.9 Peripheral vascular disease, unspecified; K68.3 Retroperitoneal hematoma; Z98.890 Other specified postprocedural states | CPT/HCPCS: 99233; 99291 ==

== ENCOUNTER 2024-01-18 14:52 | Emergency (ER) | payer MEDICARE, SELFPAY ==
--- NOTE | ~2024-01-18 | US_ITS ---
EXAMINATION: US NONINVASIVE ASSESSMENT OF THE RIGHT LOWER EXTREMITY WITH ARTERIAL DUPLEX-Limited CLINICAL INFORMATION: Pain, recent bypass, evaluate bypass patency COMPARISON: 01/01/2024 and images from angiography 01/07/2024 TECHNIQUE: Limited sonographic evaluation with duplex Doppler, waveform analysis and measurement of velocities in the along the right lower extremity bypass graft was performed. FINDINGS: NONINVASIVE ASSESSMENT OF THE ARTERIES OF BILATERAL LOWER EXTREMITIES WITH ABIs: There is a bypass graft extending from the right common femoral artery to the anterior tibial artery. The graft is occluded along its length. There is no demonstrable color or spectral Doppler signal. 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 Electronically signed by: Placido Zarate MD 01/18/2024 08:33 PM [facility]
--- NOTE | ~2024-01-18 | XR_ITS ---
EXAMINATION: XR FOOT, RIGHT CLINICAL INFORMATION: pain COMPARISON: None available. TECHNIQUE: AP, lateral, and oblique views of the right foot. 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 Questionable erosion at the medial aspect of the base of the 1st proximal phalanx. No acute fracture or malalignment. Degenerative calcification at the distal Achilles insertion. XR/XR foot RT min 3V IMPRESSION: Mild degenerative changes as described. Questionable erosion at the medial aspect of the base of the 1st proximal phalanx. If clinical concern of osteomyelitis, MRI would be recommended. Electronically signed by: Kaushal Cohen MD 01/18/2024 04:19 PM [facility] GARBER
[2024-01-18 15:11] VITALS: BP 137/74; PULSE 79; RESP 16; TEMP 36.8; O2SAT 99; BMI 27.1
--- NOTE | 2024-01-18 15:15 | ED.GENADULT ---
HPI - General Adult General Chief complaint: Wound/Laceration Stated complaint: r foot pain Time Seen by Provider: 01/18/24 16:25 Source: patient Mode of arrival: ambulatory Limitations: no limitations History of Present Illness ED Provider: oracio RAMOS narrative: Patient is a 63-year-old male with a past medical history significant for COPD, PID, splenic vein thrombosis, AFib, BPH and prior right-sided popliteal bypasses with occlusion now s/p placement of R popliteal intra-arterial tPA catheter by vascular surgery Dr. Knott on 01/07/2024. On 01/08/2024 repeat fluoroscopy with demonstration of improved graft patency, but with development of post procedural left-sided retroperitoneal hematoma and subsequent hemorrhagic shock, requiring pressor support and 3 units PRBC does not have a palpable right dorsalis pedis has a chronic wound on the dorsum of the right greater toe for last few months comes here because it is getting worse foot is cold at the time of discharge also on 01/16/2024 was not able to feel the distal pulses Related Data Home Medications ?Medication ?Instructions ?Recorded ?Confirmed aspirin 81 mg tablet,delayed 81 mg PO DAILY 01/12/20 01/07/24 release (Luis Low Dose Aspirin) pantoprazole 40 mg tablet,delayed 80 mg PO DAILY@0630 01/12/20 01/07/24 release tamsulosin 0.4 mg capsule 0.8 mg PO DAILY 01/12/20 01/07/24 atorvastatin 10 mg tablet 10 mg PO DAILY 05/04/20 01/07/24 ascorbic acid (vitamin C) 500 mg 500 mg PO DAILY 08/14/23 01/07/24 tablet (Vitamin C) ikehefdg-ss-gpssj 300 mcg-K 60 1 tab PO DAILY 10/02/23 01/07/24 mcg-lycop 600 mcg-lutein 300 mcg tablet (Centrum Silver Men) gabapentin 400 mg capsule 400 mg PO QID PRN pain 12/17/23 01/07/24 metoprolol succinate 25 mg 25 mg PO DAILY 12/17/23 01/07/24 tablet,extended release 24 hr albuterol sulfate 90 mcg/actuation 2 puff inhalation Q4H PRN 01/07/24 01/07/24 aerosol inhaler shortness of breath or wheezing nystatin 100,000 unit/gram topical 1 appl topical BID PRN Rash 01/07/24 01/07/24 powder umeclidinium 62.5 mcg/actuation 1 inh inhalation DAILY 01/07/24 blister powder for inhalation (Incruse Ellipta) Previous Rx's ?Medication ?Instructions ?Recorded fluticasone 500 mcg-salmeterol 50 1 inh inhalation Q12H #60 ea 01/01/24 mcg/dose blistr powdr for inhalation (Wixela Inhub) ipratropium 0.5 mg-albuterol 3 mg 3 ml inhalation BID PRN wheezing 01/01/24 (2.5 mg base)/3 mL nebulization #180 mL soln cephalexin 500 mg capsule 500 mg PO QID 10 days #40 caps 01/18/24 doxycycline hyclate 100 mg tablet 100 mg PO BID #20 tabs 01/18/24 Allergies Allergy/AdvReac Type Severity Reaction Status Date / Time No Known Allergies Allergy Verified 01/18/24 15:11 Review of Systems Review of Systems: Yes all other systems are reviewed and are negative [facility] Past Medical History Medical History Krish angina Left bundle branch block Bakers cyst Nicotine dependence, cigarettes, uncomplicated Arthritis BPH (benign prostatic hyperplasia) Elevated cholesterol Complex regional pain syndrome i of right lower limb S/P angiogram of extremity (07/18/23) Atrial fibrillation History of Palmer's esophagus Splenic vein thrombosis History of femoral angiogram GERD (gastroesophageal reflux disease) COPD (chronic obstructive pulmonary disease) Peripheral arterial disease Surgical History Hx of oral surgery Hx of tracheostomy History of esophagogastroduodenoscopy (EGD) H/O colonoscopy Social History Social History Household Members: None Housing: Apartment Housing Other:: 3 stairs to climb Are you a primary care assistant to a significant other at home: No Do you presently have visiting nurse or other home services: Yes (comes once a week.) Comment: Dr Knott made aware of absent pulse and sensation in right foot Patient Tobacco Use Status: Current everyday Tobacco user Tobacco use type: Cigarette Cigarette Packs Per Day: 0.5 Cigarettes Per Day: 10.0 Years Smoked: 50 Smoked in Last 30 Days: No e-Cigarette/Vaping Use: Former Use Use of substances other than those prescribed or required for medical reasons: No Substance Use Type: Marijuana Advance Directives: No Advance Directives Information Provided: Yes Do you have a plan to hurt others: No Plan service: No Physical Exam ED Vital Signs: Vital Signs - 24 hr 01/18/24 15:11 01/18/24 19:23 Temperature 98.2 F 98.2 F Pulse Rate 79 79 Respiratory Rate 16 16 Blood Pressure 137/74 137/74 Pulse Oximetry 99 99 Oxygen Delivery Method Room Air Room Air BMI result Body Mass Index 27.1 Appearance: Alert. Oriented X3. No acute distress. Eyes: PERRLA, No Nystagmus ENT: Pharynx normal. Oral Mucosa moist Neck: Normal inspection. Neck supple. CVS: Normal heart rate and rhythm. Pulses normal. Respiratory: No respiratory distress. Equal air entry bilateral, no wheezing/rales/rhonchi Abdomen: Soft and nontender. Bowel sounds are present, no mass palpable, no CVA tenderness Skin: Right foot unable to palpate dorsalis pedis and posterior tibial even by the Doppler toes are cold with poor capillary filling nonhealing wound on the dorsum of the base of right greater toe Extremities: No lower extremity edema. No calf tenderness Neuro: Oriented X 3. No motor deficit. No sensory deficit.No cerebellar signs , cranial nerves II-XII intact Course Course Course Narrative: RME, this is a rapid medical exam performed by Placido Dunbar please refer to primary provider for complete H&P- 63-year-old male presents for evaluation of right great toe wound. He has had an ulceration with some swelling for months. He reportsSince yesterday the swelling has worsened he now has a drainage from the area and has significant pain to the area. of note, the patient was admitted here last week after a popliteal bypass on the same side as the wound today that had complications with retroperitoneal hemorrhage. plan for osteomyelitis workup with x-ray, labs including blood cultures Medications Administered Discontinued Medications Generic Name Dose Route Start Last Admin Trade Name Freq PRN Reason Stop Dose Admin Cephalexin HCl 500 mg 01/18/24 17:10 01/18/24 17:50 Cephalexin 500 Mg Capsule PO 01/18/24 17:11 500 mg ONCE ONE Administration Doxycycline Monohydrate 100 mg 01/18/24 17:10 01/18/24 17:50 Doxycycline Monohydrate 100 Mg Capsule PO 01/18/24 17:11 100 mg ONCE ONE Administration Medical Decision Making Medical Decision Making [facility] Narrative: Patient with peripheral vascular disease with occluded right popliteal graft with no sore palpable pulses in the dorsalis pedis with cold extremity a nonhealing case discussed Dr. Knott likely patient needs BKA but trying to hold off until Thanksgiving for now give antibiotic will discharge patient home advised to follow up as outpatient Lab Data [facility] Lab Attestation statement: I reviewed the patient's lab results. 01/18/24 15:29 01/18/24 15:28 Labs: Lab Results 01/18/24 01/18/24 Range/Units 15:28 15:29 WBC 12.0 H (4.8-10.8) X10*3/uL RBC 3.12 L (4.60-5.80) X10*6/uL Hgb 9.6 L (14.0-18.0) g/dl Hct 29.4 L (42.0-52.0) % MCV 94.2 (80.0-98.0) fL MCH 30.8 (27.0-33.0) pg MCHC 32.7 (31.0-36.0) g/dl RDW 14.2 (11.0-16.0) % Plt Count 595 H D (160-400) X10*3/uL MPV 8.5 L (9.4-12.4) fL Immature Gran % (Auto) 1.7 H (0.0-0.4) % Neut % (Auto) 71.2 (45-73) % Lymph % (Auto) 10.5 L (20-40) % Parmer % (Auto) 13.4 H (2-11) % Eos % (Auto) 2.5 (0-4) % Baso % (Auto) 0.7 (0-2) % Lymph # (Auto) 1.3 (1.2-4.9) X10*3/uL Parmer # (Auto) 1.6 H (0.1-1.2) X10*3/uL Eos # (Auto) 0.3 (0.0-0.4) X10*3/uL Baso # (Auto) 0.1 (0.0-0.2) X10*3/uL Abs Immat Gran (auto) 0.20 H (0.00-0.03) X10*3/uL Absolute Neuts (auto) 8.5 H (2.0-8.3) x10*3/uL Absolute Nucleated RBC 0.000 (0.0-0.012) X10*3/uL Nucleated RBC % (auto) 0.0 (0.0-0.2) /100WBC Smear Tech's Comments VERIFIED ESR 92 H (0-15) MM/HR PT 13.4 H (10.9-12.4) SEC INR 1.2 H (0.9-1.1) Sodium 134 L (135-145) mmol/L Potassium 4.2 (3.3-5.1) mmol/L Chloride 102 (96-108) mmol/L Carbon Dioxide 23 (22-29) mmol/L Anion Gap 13 (12-20) BUN 16 (9-16) mg/dL Creatinine 0.80 (0.5-1.4) mg/dL Estim Creat Clear Calc 101.0 Estimated GFR > 60 Random Glucose 119 H (60-115) mg/dL Lactic Acid 1.3 (0.5-2.0) mmol/L Calcium 9.6 (8.4-10.2) mg/dL Total Bilirubin 2.4 H (0.0-1.0) mg/dL AST 147 H (5-37) U/L ALT 280 H (0-40) U/L Alkaline Phosphatase 382 H (39-117) U/L C-Reactive Protein 14.10 H (< or = 0.50) mg/dL Total Protein 6.7 (6.5-8.0) g/dL Albumin 3.7 (3.5-5.0) g/dL Lipase 24 (8-78) U/L Discharge Plan Discharge Clinical Impression: Peripheral arterial disease, Non-healing wound of lower extremity Patient Disposition: Home, Self-Care Instructions: Wound Infection (ED), Peripheral Artery Disease (ED) Additional Instructions: Take antibiotic as prescribed Likely you need amputation of right leg follow up with vascular surgeon Dr. Knott Report to the ER if high fever or discoloration of the right leg Prescriptions: New cephalexin 500 mg capsule 500 mg PO QID 10 Days Qty: 40 0RF doxycycline hyclate 100 mg tablet 100 mg PO BID Qty: 20 0RF No Action aspirin [Luis Low Dose Aspirin] 81 mg Tablet,Delayed Release (Dr/Ec) 81 mg PO DAILY tamsulosin 0.4 mg Capsule 0.8 mg PO DAILY pantoprazole 40 mg Tablet,Delayed Release (Dr/Ec) 80 mg PO DAILY@0630 Centrum Silver Men [id number] mcg Tablet 1 tab PO DAILY ascorbic acid (vitamin C) [Vitamin C] 500 mg Tablet 500 mg PO DAILY nystatin 100,000 unit/gram powder 1 appl topical BID PRN (Reason: Rash) albuterol sulfate 90 mcg/actuation HFA aerosol inhaler 2 puff inhalation Q4H PRN (Reason: shortness of breath or wheezing) Incruse Ellipta 62.5 mcg/actuation blister with device 1 inh INHALATION DAILY atorvastatin 10 mg tablet 10 mg PO DAILY fluticasone propion-salmeterol [Wixela Inhub] 500-50 mcg/dose blister with device 1 inh inhalation Q12H Qty: 60 6RF ipratropium-albuterol 0.5 mg-3 mg(2.5 mg base)/3 mL solution for nebulization 3 ml inhalation BID PRN (Reason: wheezing) Qty: 180 0RF gabapentin 400 mg capsule 400 mg PO QID PRN (Reason: pain) metoprolol succinate 25 mg tablet extended release 24 hr 25 mg PO DAILY Interventions: ED Discharge Assessment Last Done: 01/18/24 19:23 Discharge Date/Time: 01/18/24 19:24 Print Language: Telugu
[2024-01-18 15:36] LABS: Basophils Absolute Auto 0.1 X10*3/uL (0.0-0.2); Basophils Percent Auto 0.7 % (0-2); Eosinophils Absolute Auto 0.3 X10*3/uL (0.0-0.4); Eosinophils Percent Auto 2.5 % (0-4); Hematocrit 29.4 % (42.0-52.0); Hemoglobin 9.6 g/dl (14.0-18.0); Imm Gran Pct Auto 1.7 % (0.0-0.4); Lymphocytes Absolute Auto 1.3 X10*3/uL (1.2-4.9); Lymphocytes Percent Auto 10.5 % (20-40); MANUAL DIFF FLAG SCAN; Mean Corpuscular HGB Conc 32.7 g/dl (31.0-36.0); Mean Corpuscular Hemoglobin 30.8 pg (27.0-33.0); Mean Corpuscular Volume 94.2 fL (80.0-98.0); Mean Platelet Volume 8.5 fL (9.4-12.4); Monocytes Absolute Auto 1.6 X10*3/uL (0.1-1.2); Monocytes Percent Auto 13.4 % (2-11); Neutrophils Absolute Auto 8.5 x10*3/uL (2.0-8.3); Neutrophils Percent Auto 71.2 % (45-73); Platelet Count 595 X10*3/uL (160-400); Red Blood Count 3.12 X10*6/uL (4.60-5.80); Red Cell Distribution Width 14.2 % (11.0-16.0); SCAN SMEAR FLAG 1
[2024-01-18 15:41] LABS: INTERNATIONAL NORM RATIO 1.2 (0.9-1.1); Prothrombin Time 13.4 SEC (10.9-12.4)
[2024-01-18 15:49] LABS: Lactic Acid 1.3 mmol/L (0.5-2.0)
[2024-01-18 15:52] LABS: Alanine Aminotransferase 280 U/L (0-40); Albumin Level 3.7 g/dL (3.5-5.0); Alkaline Phosphatase 382 U/L (39-117); Anion Gap 13 (12-20); Aspartate Amino Transferase 147 U/L (5-37); Bilirubin Total 2.4 mg/dL (0.0-1.0); Blood Urea Nitrogen 16 mg/dL (9-16); Calcium 9.6 mg/dL (8.4-10.2); Carbon Dioxide 23 mmol/L (22-29); Chloride 102 mmol/L (96-108); Estimated Glomerular Filt Rate > 60; Glucose Random 119 mg/dL (60-115); Lipase 24 U/L (8-78); Potassium 4.2 mmol/L (3.3-5.1); Sodium 134 mmol/L (135-145); Total Protein 6.7 g/dL (6.5-8.0)
[2024-01-18 16:00] LABS: SLIDE REVIEW VERIFIED
[2024-01-18 16:14] LABS: Erythrocyte Sedimentation Rate 92 MM/HR (0-15)
[2024-01-18] MEDS: Doxycycline Monohydrate 100 MG CAPSULE PO (17:50)
[2024-01-18] MEDS: cephALEXin 500 MG CAPSULE PO (17:50)
[2024-01-18 19:23] VITALS: BP 137/74; PULSE 79; RESP 16; TEMP 36.8; O2SAT 99
== END 2024-01-18 19:24 | disposition home or self-care (01) ==
PROVIDERS: Physician Assistant; Emergency Provider Internal Medicine; PCP Internal Medicine Medical Oncology
DX: I73.9 Peripheral vascular disease, unspecified (principal); S91.101A Unspecified open wound of right great toe without damage to nail, initial encounter; X58.XXXA Exposure to other specified factors, initial encounter; M79.674 Pain in right toe(s); E78.00 Pure hypercholesterolemia, unspecified; I48.91 Unspecified atrial fibrillation; J44.9 Chronic obstructive pulmonary disease, unspecified; G89.4 Chronic pain syndrome; F17.210 Nicotine dependence, cigarettes, uncomplicated; Z79.82 Long term (current) use of aspirin; Z79.02 Long term (current) use of antithrombotics/antiplatelets; Z79.899 Other long term (current) drug therapy; Y93.9 Activity, unspecified; Y92.9 Unspecified place or not applicable; Y99.9 Unspecified external cause status
CPT/HCPCS: 36415; 73630; 80053; 83605; 83690; 85025; 85610; 85652; 86140; 87040; 93926; 99284

== ENCOUNTER 2024-01-29 12:47 | Outpatient (AMB) | payer MEDICARE, SELFPAY ==
--- NOTE | 2024-01-29 12:55 | A.OFFVIS_ITS ---
Vital Signs 01/29/24 12:56 Height 6 ft Weight 200 lb BMI 27.1 Intake Visit Reasons: follow up hospital stay s/p Angio Intake Note: follow up Right Angio 01/08/24 and hospital stay. Pt has wound on Right LE. Pt states that heh has excruciating pain. Pt states he can only sleep in the sitting in the chair. Accompanied by: Self / Same As Patient Allergies No Known Allergies Allergy (Verified 01/29/24 13:05) HPI HPI follow up hospital stay s/p Angio: Details: Complex 63-year-old gentleman presents for follow-up regarding nonhealing right lower extremity ulcer. He has gone on to progress to critical limb ischemia. He has intractable pain. He now presents for routine follow-up after his hospital visit. During his hospital visit we did try an endovascular approach to open up his last bypass. Unfortunately he ended up with a significant postoperative bleed. It has stabilized. He now presents for follow-up [facility] Medical History Krish angina Left bundle branch block Bakers cyst Nicotine dependence, cigarettes, uncomplicated Arthritis BPH (benign prostatic hyperplasia) Elevated cholesterol Complex regional pain syndrome i of right lower limb S/P angiogram of extremity (07/18/23) Atrial fibrillation History of Palmer's esophagus Splenic vein thrombosis History of femoral angiogram GERD (gastroesophageal reflux disease) COPD (chronic obstructive pulmonary disease) Peripheral arterial disease Surgical History Hx of oral surgery Hx of tracheostomy History of esophagogastroduodenoscopy (EGD) H/O colonoscopy Social History Household Members: None Housing: Apartment Housing Other:: 3 stairs to climb Are you a primary administrator health care facility to a significant other at home: No Do you presently have visiting nurse or other home services: Yes (comes once a week.) Comment: Dr Knott made aware of absent pulse and sensation in right foot Patient Tobacco Use Status: Current everyday Tobacco user Tobacco use type: Cigarette Cigarette Packs Per Day: 0.5 Cigarettes Per Day: 10.0 Years Smoked: 50 e-Cigarette/Vaping Use: Former Use Substance Use Type: Marijuana service: No Review of Systems Const All systems reviewed & are unremarkable except as noted in HPI and below Reports no additional complaints ENT Reports Normal hearing present Card Denies chest pain, Denies chest pain at rest, Denies chest pain with activity and Denies pedal edema Resp Denies cough GI Denies abdominal pain Musc Denies abnormal gait, Denies muscle cramps and Denies radiating pain into limb Skin/Breast Denies skin ulcer and Denies wounds Neuro Reports Normal hearing present and Denies abnormal gait Psych Reports no additional complaints Physical Exam Vital Signs: BMI result Body Mass Index 27.1 Const General: cooperative, healthy appearing and comfortable Orientation/consciousness: oriented to person, oriented to place and oriented to time HEENT Head: Yes normal to inspection Neck Neck: Yes normal visual inspection Carotids: no bruits Chest Chest palpation & inspection: normal inspection of the chest Resp Effort & Inspection: normal respiratory effort and able to speak in complete sentences Auscultation: clear to auscultation bilaterally, no crackles, no rales, no rhonchi and no wheezes Cardio Rate: regular rate Rhythm: regular rhythm Heart sounds: S1 normal heart sound present and S2 normal heart sound present Bruits: no carotid bruits Peripheral pulses: Peripheral pulses 2+ throughout GI Inspection: Yes normal to inspection Skin Other: Right dorsum of the foot ulcer. Ischemic appearance of the foot poor capillary refill. Wounds: no wounds Hair: normal Neuro General: oriented to person, oriented to place and oriented to time Cranial nerves: Yes CN's II-XII intact bilaterally and Yes Normal hearing present Cognition (Neuro): normal cognition Motor exam (neuro): 5/5 motor strength present throughout Extrem Other: venous exam: No significant superficial varicosities or spider telangiec tasias, minimal edema General: No clubbing, No cyanosis and No edema Psych Appearance: grossly normal Mental Status: mental status grossly normal Speech and movement: Normal speech and movement present Assessment & Plan Assessment & Plan (1) Peripheral arterial disease: Code(s): I73.9 - Peripheral vascular disease, unspecified Category: Medical Plan: In short patient has progressed on to critical right lower extremity ischemia. Unfortunately he has intractable pain. He will require right below-knee amputation. Risks benefits complications of the operation were discussed in detail with the patient. He understood and consented. Would like to schedule as soon as possible. Thank you for allowing us to assist in his care. If there are any questions or concerns please do not hesitate to contact us. Coding Level of Care Code Est Pt Level 4 (58161) Complex EM visit Add On G2211 Diagnoses Peripheral arterial disease I73.9
[2024-01-29 12:56] VITALS: BMI 27.1
== END 2024-01-29 13:51 | disposition home or self-care (01) ==
PROVIDERS: PCP Internal Medicine Medical Oncology; Visit Provider Surgery Vascular Surgery
DX: I73.9 Peripheral vascular disease, unspecified (principal)
CPT/HCPCS: 99214; G2211

== ENCOUNTER → 2024-01-29 12:47 | Outpatient (BNVA) | payer MEDICARE, SELFPAY | PROVIDERS: PCP Internal Medicine Medical Oncology; Visit Provider Surgery Vascular Surgery | DX: I73.9 Peripheral vascular disease, unspecified (principal); L97.819 Non-pressure chronic ulcer of other part of right lower leg with unspecified severity; F17.210 Nicotine dependence, cigarettes, uncomplicated | CPT/HCPCS: 99212 ==

== ENCOUNTER 2024-02-04 10:23 | Inpatient (IN) | payer MEDICARE, SELFPAY ==
--- NOTE | 2024-02-01 09:49 | P.CONAN_ITS ---
HPI - Anesthesia Eval Consult details Narrative: 63yo M for Right Leg Amputation Below Knee s/p fem-pop 07/2023 with GA-ETT 7.5 (cardiac and pulmo optimized prior) [facility] admit 12/2023 Hospital Course Hospital Course: Patient is a 63-year-old male with a past medical history significant for COPD, PID, splenic vein thrombosis, AFib, BPH and prior right-sided popliteal bypasses with occlusion now s/p placement of R popliteal intra-arterial tPA catheter by vascular surgery Dr. Knott on 01/07/2024. On 01/08/2024 repeat fluoroscopy with demonstration of improved graft patency, but with development of post procedural left-sided retroperitoneal hematoma and subsequent hemorrhagic shock, requiring pressor support and 3 units PRBC. Heparin drip was stopped on 01/08/2024 but resumed on 01/09/2024 by vascular surgery, hemoglobin stabilized and patient was off pressors. he was transferred to the medical floor on 01/09 and became tachycardic in the 180s, concern for a fib/flutter, with a hemoglobin of 3.7, repeat 3.3 and heparin drip was held. He was given an additional 4 units of RBC , 1 FFP and [address] showed large left renal subcapsular hematoma increased in size when compared to prior exam on 01/08/2024, measuring up to 17.5 cm, previously 3.0 cm. Transfer to [facility] and [facility] were declined and he was transferred back to the ICU. Hemoglobin has remained stable over the past 3 days, transferred back to telemetry floor 01/14/24 for continued monitoring. H+H remains stable since 01/11/24, around 8. no further blood transfusions needed. BPs normal, abd pain improved. Patient continues to remain stable and will be discharged home today. We will see him back in the office in the next 2 weeks. [facility] Active Problems Active Problems: All Active Problems Renal cyst (Acute) Encounter for preoperative pulmonary examination (Acute) Preop cardiovascular exam (Acute) Chronic pain syndrome (Acute) Peripheral arterial disease (Chronic) BPH (benign prostatic hyperplasia) (Acute) Past Medical History Medical History Krish angina Left bundle branch block Bakers cyst Nicotine dependence, cigarettes, uncomplicated Arthritis BPH (benign prostatic hyperplasia) Elevated cholesterol Complex regional pain syndrome i of right lower limb S/P angiogram of extremity (07/18/23) Atrial fibrillation History of Palmer's esophagus Splenic vein thrombosis History of femoral angiogram GERD (gastroesophageal reflux disease) COPD (chronic obstructive pulmonary disease) Peripheral arterial disease Family History Family history of problems with anesthesia: No Surgical History Surgical History History of tonsillectomy Hx of oral surgery Hx of tracheostomy History of esophagogastroduodenoscopy (EGD) H/O colonoscopy History of Problems with Anesthesia: No Social History Social History Household Members: Family Household Members Other:: Son, son girlfriend, grandbaby Housing: Apartment Housing Other:: 3 stairs to climb Are you a primary before and after school daycare worker to a significant other at home: No Do you presently have visiting nurse or other home services: Yes Comment: Dr Knott made aware of absent pulse and sensation in right foot Patient Tobacco Use Status: Current everyday Tobacco user Tobacco use type: Cigarette Cigarette Packs Per Day: 0.5 Cigarettes Per Day: 10 Years Smoked: 50 e-Cigarette/Vaping Use: Former Use Second Hand Smoke Exposure: No Substance Use Type: Marijuana service: No Meds Allergies Allergy/AdvReac Type Severity Reaction Status Date / Time No Known Allergies Allergy Verified 01/29/24 13:05 Home Medications ?Medication ?Instructions ?Recorded ?Confirmed ?Last Taken ?Type aspirin 81 mg tablet,delayed 81 mg PO DAILY 01/12/20 02/04/24 02/04/24 06:00 History release (Luis Low Dose Aspirin) pantoprazole 40 mg tablet,delayed 80 mg PO DAILY@0630 01/12/20 02/04/24 02/04/24 06:00 History release tamsulosin 0.4 mg capsule 0.8 mg PO DAILY 01/12/20 02/04/24 02/04/24 06:00 History atorvastatin 10 mg tablet 10 mg PO DAILY 05/04/20 02/04/24 02/04/24 06:00 History pfecrupj-vi-jjems 300 mcg-K 60 1 tab PO DAILY 10/02/23 02/04/24 02/04/24 06:00 History mcg-lycop 600 mcg-lutein 300 mcg tablet (Centrum Silver Men) gabapentin 400 mg capsule 400 mg PO QID PRN pain 12/17/23 02/04/24 02/04/24 06:00 History metoprolol succinate 25 mg 25 mg PO DAILY 12/17/23 02/04/24 02/04/24 06:00 History tablet,extended release 24 hr albuterol sulfate 90 mcg/actuation 2 puff inhalation Q4H PRN 01/07/24 02/04/24 Unknown History aerosol inhaler shortness of breath or wheezing umeclidinium 62.5 mcg/actuation 1 inh inhalation DAILY 01/07/24 02/04/24 02/04/24 06:00 History blister powder for inhalation (Incruse Ellipta) Exam Pertinent Lab Results Pertinent Lab Results: Laboratory Tests 01/18/24 01/18/24 15:28 15:29 WBC 12.0 H Hgb 9.6 L Hct 29.4 L Plt Count 595 H D Sodium 134 L Potassium 4.2 Chloride 102 Carbon Dioxide 23 BUN 16 Creatinine 0.80 Narrative Narrative: EKG 12/2023 Vent. Rate : 118 BPM Atrial Rate : 118 BPM P-R Int : 136 ms QRS Dur : 142 ms QT Int : 372 ms P-R-T Axes : 000 -02 141 degrees QTc Int : 521 ms Sinus tachycardia Left bundle branch block Abnormal ECG When compared with ECG of 10-JAN-2024 08:19, Premature supraventricular complexes are no longer Present Vent. rate has increased BY 40 BPM NM gosia perf SPECT rest & str 07/2023 Impression: 1. Myocardial perfusion imaging study shows fixed distal anterior defect; possible prior infarct. Cannot exclude findings of the left bundle branch block. 2. Gated LVEF 52% during stress and rest. 3. Transient ischemic dilatation not present. Assessment and Plan Assessment Anesthesia Assessment: Chart Reviewed Final Anesthetic Review Family History of Problems with Anesthesia: No History of Problems with Anesthesia: No
[2024-02-04] VITALS (12 sets, daily range): BP systolic 117–168; BP diastolic 55–66; PULSE 67–80; RESP 16–21; TEMP 36.6–37.4; O2SAT 96–100; BMI 26.6; BMI 24.2
--- NOTE | 2024-02-04 07:40 | MHC.SHP ---
Pre-Procedural Eval Section A - 24 Hr Update-Section A only Date of Service: 02/04/24 The patient is an INPATIENT: No Changes since office visit: Yes Patient answered all questions The patient has been examined within 24 hours of the surgical procedure. The History & Physical has been completed within 30 days and I have reviewed it.: Yes Section B - Complete if H&P > 30 days Chief Complaint: Peripheral vascular disease, unspecified Allergies: Allergies Allergy/AdvReac Type Severity Reaction Status Date / Time No Known Allergies Allergy Verified 01/29/24 13:05 Plan I have reviewed the history and physical and performed a pertinent physical examination on my patient. No changes have occurred unless specified. Time Spent With Patient Time: Total time managing care of this patient today ____ minutes.
[2024-02-04 10:48] LABS: Mean Corpuscular HGB Conc 31.6 g/dl (31.0-36.0); Mean Corpuscular Hemoglobin 29.6 pg (27.0-33.0); Mean Corpuscular Volume 93.8 fL (80.0-98.0); Platelet Count 386 X10*3/uL (160-400); Red Blood Count 4.05 X10*6/uL (4.60-5.80); White Blood Count 11.5 X10*3/uL (4.8-10.8)
[2024-02-04 10:55] LABS: INTERNATIONAL NORM RATIO 1.1 (0.9-1.1)
[2024-02-04 10:58] LABS: Partial Thromboplastin Time 33.9 SEC (26.0-36.8)
[2024-02-04 11:01] LABS: Anion Gap 11 (12-20); Blood Urea Nitrogen 19 mg/dL (9-16); Calcium 9.7 mg/dL (8.4-10.2); Carbon Dioxide 26 mmol/L (22-29); Chloride 105 mmol/L (96-108); Creatinine Clr Calc Pharmacy 71.5; Estimated Glomerular Filt Rate > 60; Glucose Random 106 mg/dL (60-115); Potassium 4.4 mmol/L (3.3-5.1); Sodium 138 mmol/L (135-145)
[2024-02-04] MEDS: Lactated Ringers 1,000 ML 100 ML IVCONT (11:15)
--- NOTE | 2024-02-04 11:22 | PHA.MEDREC ---
Pharmacy Consult ? Medication Reconciliation Pharmacy has reviewed the medication reconciliation done by nursing. Matched claims and confirmed with patient that he stopped the Eliquis as noted in previous discharge packet.
[2024-02-04] MEDS: ceFAZolin Sodium/Dextrose,Iso 2 GM/50 ML PIGGYBACK IV ×2 (11:29→17:29)
--- NOTE | 2024-02-04 12:58 | W.PM.OPN ---
Operative Note Operative Note Date of Service: 02/04/24 Narrative: Operative note by [facility] Preoperative diagnosis: 1. Ischemic right lower extremity 2. Diabetic foot ulcer Postoperative diagnosis: Same Procedure: 1. Right Leg below-knee amputation 2. Myodesis Surgeon:Bimal Knott M.D. Automatic Glove Former: Sera OSORIO Anesthesia: General Specimens: One Drains: None Estimated blood loss:100 ml Indications: 63-year-old gentleman with a prior history of peripheral vascular disease. He had undergone 2 attempted bypass is which had subsequently failed. He went on to critical limb ischemia and rest pain equivalent along with ulceration of the great toe. He now presents for below-knee amputation. The patient has signed the informed consent after reviewing risks, complications, benefits, and alternatives previously discussed with the patient. The patient was given the opportunity to ask any additional questions or voice any concerns. All questions were answered to the patient's satisfaction. Procedure in detail: The patient was brought to the operating room prior to which a time-out was called for patient identification and site verification. The patient was placed in a supine position. The right lower extremity was prepped and draped in the standard surgical fashion. The intended incision site was marked. The anterior aspect of the incision was made approximately 10 cm below the right tibial tuberosity. The incision was carried through the fascia. The anterior compartment muscles were divided using electrocautery dissection. The tibia and fibula were cleared. Periosteal elevator was used to clear the periosteum from the tibia. The tibia was transected with a power reciprocating saw. This was done in a reverse hockey stick shaped cut. The fibula was transected approximately 2 in above the tibial transection site once again with a reciprocating saw. The amputation was then completed using electrocautery to create the posterior flap. The flap was debulked using electrocautery and Metzenbaum scissors. The nerve was placed on traction and ligated and divided sharply. The anterior tibial posterior tibial and peroneal vessels were or identified and tied off with 2-0 silk ties. We then performed a myodesis. In the tibia on the medial and lateral aspect using a drill holes were then created. Using 2-0 Polysorb, the muscle was then buttressed to the tibia. The wound was then closed using 2-0 poly Sorb. This was used to bring together the fascia from the posterior flap to the anterior cut. We then reapproximated the superficial layer with 3-0 poly Sorb suture. Finally skin was closed using 2-0 nylon in a mattress fashion. In addition we used skin clips. The stump was then dressed with Xeroform, Kerlix and an Abdoulaye wrap. The patient tolerated the procedure well. They were brought to recovery with stable vitals. At the end the case sponge needle instrument counts were correct x2. This note is constructed using voice recognition software. While every effort has been made to ensure accuracy, ammonia refrigeration worker errors may have been included. Thank you for allowing me to participate in the care of your patient. Yours sincerely, Bimal Knott MD, FACS, R.P.V.I.
[2024-02-04] MEDS: fentaNYL citrate/PF 100 MCG/2 ML VIAL 50 MCG IVPUSH (13:26)
[2024-02-04] MEDS: 0.9 % Sodium Chloride 1,000 ML 80 ML IVCONT (15:45)
[2024-02-04] MEDS: Heparin Sodium,Porcine 5,000 UNIT/ML VIAL 5000 UNIT SUBCUT ×2 (15:45→21:00)
[2024-02-04] MEDS: 0.9 % Sodium Chloride Flush 3 ML SYRINGE IVFLUSH (15:45)
[2024-02-04] MEDS: oxyCODONE HCl Immed Release 5 MG TABLET PO ×2 (15:50→20:59)
[2024-02-04] MEDS: Morphine Sulfate 2 MG/ML CARTRIDGE IVPUSH ×2 (17:26→22:21)
[2024-02-05] MEDS: HYDROmorphone HCl 2 MG/ML VIAL IVPUSH ×2 (02:21→09:09)
[2024-02-05] MEDS: 0.9 % Sodium Chloride 1,000 ML 80 ML IVCONT ×2 (02:25→13:31)
--- NOTE | 2024-02-05 02:53 | PC.NURSE ---
Pt not responding well to morphine, with not much effect still with 9/10 pain, new order placed by Dr. Knott, per APR.
[2024-02-05 04:00] VITALS: BP 124/60; PULSE 79; RESP 18; TEMP 36.8; O2SAT 96
[2024-02-05] MEDS: oxyCODONE HCl Immed Release 5 MG TABLET PO (05:00)
[2024-02-05] MEDS: Pantoprazole Sodium 20 MG TABLET.DR PO (05:00)
[2024-02-05 07:22] VITALS: BP 140/65; PULSE 78; RESP 16; TEMP 37; O2SAT 95
[2024-02-05 07:28] LABS: Basophils Percent Auto 0.3 % (0-2); Eosinophils Percent Auto 0.2 % (0-4); Hematocrit 30.8 % (42.0-52.0); Imm Gran Abs Auto 0.07 X10*3/uL (0.00-0.03); Imm Gran Pct Auto 0.6 % (0.0-0.4); Lymphocytes Absolute Auto 1.1 X10*3/uL (1.2-4.9); Lymphocytes Percent Auto 9.5 % (20-40); MANUAL DIFF FLAG SCAN; Mean Corpuscular HGB Conc 32.5 g/dl (31.0-36.0); Mean Corpuscular Hemoglobin 29.5 pg (27.0-33.0); Mean Corpuscular Volume 90.9 fL (80.0-98.0); Mean Platelet Volume 9.1 fL (9.4-12.4); Monocytes Absolute Auto 1.5 X10*3/uL (0.1-1.2); Monocytes Percent Auto 13.8 % (2-11); Neutrophils Absolute Auto 8.5 x10*3/uL (2.0-8.3); Neutrophils Percent Auto 75.6 % (45-73); Platelet Count 281 X10*3/uL (160-400); Red Blood Count 3.39 X10*6/uL (4.60-5.80); Red Cell Distribution Width 13.8 % (11.0-16.0); SCAN SMEAR FLAG 1; White Blood Count 11.2 X10*3/uL (4.8-10.8)
[2024-02-05 07:47] LABS: SLIDE REVIEW VERIFIED
[2024-02-05] MEDS: Morphine Sulfate 2 MG/ML CARTRIDGE IVPUSH (08:00)
[2024-02-05] MEDS: Atorvastatin Calcium 10 MG TABLET PO (08:03)
[2024-02-05] MEDS: Multivitamin TABLET 1 TAB PO (08:03)
[2024-02-05] MEDS: Tamsulosin HCL 0.4 MG CAPSULE 0.8 MG PO (08:03)
[2024-02-05] MEDS: Metoprolol Succinate ER 25 MG TAB.ER.24H PO (08:03)
[2024-02-05] MEDS: Aspirin Enteric Coated 81 MG TABLET.DR PO (08:03)
[2024-02-05] MEDS: 0.9 % Sodium Chloride Flush 3 ML SYRINGE IVFLUSH ×2 (08:10→20:25)
--- NOTE | 2024-02-05 09:21 | MHC.CM.PN ---
PATIENT ACTIVE WITH [facility]. [phone] HE RECEIVES RN SKILLS FOR WOUND CARE 2-3 X/WEEK AND PHYSICAL THERAPY. HE ALSO HAS A WALKER AND USES A NEBULIZER NEEDED SON ASSISTS WITH CARE NEEDS AND TRANSPORTATION. PATIENT CURRENTLY EXPRESSING HIGH LEVELS OF PAIN SECONDARY TO POSITIONING HE ASKS T/W TO SING IMM ON HIS BEHALF AND AGREES THAT HE UNDERSTANDS HIS MEDICARE RIGHTS IMM 02/04 IN CHART AND ORIGINAL LEFT WITH PATIENT.
--- NOTE | 2024-02-05 09:58 | HO.POSTANES ---
Post Anesthesia Evaluation Post Anesthesia Evaluation Date of Service: 02/05/24 Vital Signs: Vital Signs Temp Pulse Resp BP Pulse Ox O2 Del Method 02/05/24 07:22 98.6 F 78 16 140/65 H 95 Room Air 02/05/24 04:00 98.2 F 79 18 124/60 96 Room Air Anesthesia: General Mental Status: Awake Pain Control: Satisfactory Nausea/Vomiting: None Hydration: Adequate Anesthesia-Related Issues: No Anes. Related Issues
[2024-02-05 10:07] LABS: Anion Gap 12 (12-20); Blood Urea Nitrogen 11 mg/dL (9-16); Carbon Dioxide 26 mmol/L (22-29); Chloride 103 mmol/L (96-108); Creatinine Clr Calc Pharmacy 98.5; Estimated Glomerular Filt Rate > 60; Glucose Random 116 mg/dL (60-115); Potassium 3.9 mmol/L (3.3-5.1); Sodium 137 mmol/L (135-145)
--- NOTE | 2024-02-05 10:20 | HO.VASCPN ---
Subjective Subjective Date of Service: 02/05/24 Interval history: Zan is doing ok this morning. He continues to endorse significant pain. He states he has been getting shooting pains in his leg, from the amputation site to his groin. He denies any phantom pain. He did require additional IV pain medication on the overnight. He does not remember if he ate last night but did sleep a little. Physical Exam Vital Signs: Vital Signs: Last Vital Signs Temp 98.6 F 02/05/24 07:22 Pulse 78 02/05/24 07:22 Resp 16 02/05/24 07:22 BP 140/65 H 02/05/24 07:22 Pulse Ox 95 02/05/24 07:22 O2 Del Method Room Air 02/05/24 07:22 O2 Flow Rate 96 02/04/24 13:03 BMI result Body Mass Index 24.2 Const: General: comfortable and no acute distress Orientation/consciousness: patient oriented x3 HEENT: Ears: hearing grossly normal bilaterally Resp: Effort & Inspection: normal respiratory effort and able to speak in complete sentences Auscultation: clear to auscultation bilaterally Cardio: Rate: regular rate Rhythm: regular rhythm Heart sounds: S1 normal heart sound present and S2 normal heart sound present Bruits: no abdominal aortic bruits, no carotid bruits, no femoral bruits and no renal bruits GI: Palpation (GI): No Abdominal aortic bruit present Neuro: General: patient oriented x3 Cranial nerves: Yes CN's II-XII intact bilaterally Extrem: Other: Right BKA site: covered. Abdoulaye bandage removed. Dried blood noted on Kerlex. Will take down tomorrow and change the dressing. Progress Note: A&P Assessment and plan (1) Below-knee amputation of right lower extremity: Status: Acute Assessment and Plan: Zan is post op day 1 from a right BKA. He has been endorsing significant pain at the site and shooting pains up his leg. He did require extra pain medication on the overnight. We took down the Abdoulaye bandage this morning but will do a complete dressing change tomorrow. We will discontinue him off of IV pain meds and transistion him to Oxy ER 10mg bid and Oxy IR 10mg q4h prn for breakthrough pain. We have also placed a PT order. We will continue to monitor. If there are any questions or concerns, please do not hesitate to reach out to us. Time Spent With Patient Time: Total time managing care of this patient today ____ minutes. Procedures Date of Service Date of Service: 02/05/24 Quality Stroke Does the patient have a stroke diagnosis?: No VTE Prior VTE?: No VTE Risk Level:: Medical - moderate - high VTE Device Contraindication: Treatment Not Indicated VTE Drug Contraindication: N/A - Med Ordered
[2024-02-05] MEDS: oxyCODONE HCl ER 10 MG TAB.ER.12H PO ×2 (10:38→20:25)
[2024-02-05 11:08] LABS: Calcium 9.1 mg/dL (8.4-10.2)
[2024-02-05] MEDS: oxyCODONE HCl Immed Release 5 MG TABLET 10 MG PO ×3 (13:30→23:35)
[2024-02-05 15:32] VITALS: BP 128/60; PULSE 83; RESP 20; TEMP 37; O2SAT 97
--- NOTE | 2024-02-05 16:11 | P.CONHOSP_ITS ---
History of Present Illness Data of Consult Service Date: 02/05/24 Primary Care Provider: Quinton Callahan MD HPI 63-year-old gentleman with past medical history of peripheral arterial disease, COPD not on home O2, atrial fibrillation, BPH, history of splenic vein thrombosis, admitted under Dr. Knott and underwent right BKA postoperative day 1, today patient noted to have 3 episodes of hematuria, patient denies urinary urgency, no frequency, denies abdominal pain, no lightheadedness, no dizziness admits to have good pain control, denies chest pain, no shortness of breath. Denies nausea, no vomiting decreased by mouth intake, no diarrhea. 0 Review of Systems 2 Review of Systems: General no headache ,no dizziness no fever chills. CVS no chest pain, no palpitation. Respiratory no cough, no sob Gastrointestinal no nausea no vomiting, no abdominal pain PMFSH Medical History Krish angina Left bundle branch block Bakers cyst Nicotine dependence, cigarettes, uncomplicated Arthritis BPH (benign prostatic hyperplasia) Elevated cholesterol Complex regional pain syndrome i of right lower limb S/P angiogram of extremity (07/18/23) Atrial fibrillation History of Palmer's esophagus Splenic vein thrombosis History of femoral angiogram GERD (gastroesophageal reflux disease) COPD (chronic obstructive pulmonary disease) Peripheral arterial disease Surgical History History of tonsillectomy Hx of oral surgery Hx of tracheostomy History of esophagogastroduodenoscopy (EGD) H/O colonoscopy Social History Household Members: Family Household Members Other:: Son, son girlfriend, grandbaby Housing: Apartment Housing Other:: 3 stairs to climb Are you a primary healthcare applications analyst to a significant other at home: No Do you presently have visiting nurse or other home services: Yes Comment: Dr Knott made aware of absent pulse and sensation in right foot Patient Tobacco Use Status: Current everyday Tobacco user Tobacco use type: Cigarette Cigarette Packs Per Day: 0.5 Cigarettes Per Day: 10 Years Smoked: 50 Smoked in Last 30 Days: Yes e-Cigarette/Vaping Use: Former Use Patient Interested in Nicotine Replacement: Yes Patient Given Instructions on How to Stop Smoking: No Second Hand Smoke Exposure: No Use of substances other than those prescribed or required for medical reasons: Yes Substance Use Type: Marijuana Substance Use Frequency: Daily Last Used Substance: Days (ago) Last Used Substance Other:: 02/03/24 Currently Displaying Signs/Symptoms of Drug Intoxication Withdrawal: No Any prior treatment program specific to substance use: No Have you been hit, kicked, punched, or otherwise hurt by someone within the past year? If so, by whom?: No Do you feel safe in your current relationship?: Yes Is there a partner from a previous relationship who is making you feel unsafe now?: No Are you made to feel afraid or neglected: No Buddhist Healthcare Practices: Spiritism Are you DNR?: No Advance Directives: No Advance Directives Information Provided: No Advance Directives on File: No Recently lost weight without trying: No Nutrition Risks: No Nutritional Risk Poor oral hygiene: No service: No Meds Allergies Allergy/AdvReac Type Severity Reaction Status Date / Time No Known Allergies Allergy Verified 01/29/24 13:05 Active Medications: Current Medications Acetaminophen (Acetaminophen 325 Mg Tablet) 650 mg PO Q6H PRN PRN Reason: Pain, Mild (Pain Scale 1-3), fever or headache Albuterol Sulfate (Albuterol Sulfate 90 Mcg 8 Gm Inhaler) 2 puff INHALE Q4H PRN PRN Reason: shortness of breath or wheezing Albuterol/Ipratropium (Albuterol/Iprat 2.5/0.5mg 3 Ml Ampul.Neb) 3 ml INHALE BID PRN PRN Reason: wheezing Aspirin (Aspirin Enteric Coated 81 Mg Tablet.) 81 mg PO DAILY [facility] Last Admin: 02/05/24 08:03 Dose: 81 mg Atorvastatin Calcium (Atorvastatin Calcium 10 Mg Tablet) 10 mg PO DAILY [facility] Last Admin: 02/05/24 08:03 Dose: 10 mg Calcium Carbonate (Calcium Carbonate 750 Mg Tab.Chew) 750 mg PO Q4H PRN PRN Reason: Heartburn Fluticasone/Vilanterol (Fluticasone/Vilanterol 200/25 Blst.W.Dev) 1 puff INHALE RDAILY [facility] Last Admin: 02/05/24 09:50 Dose: Not Given Heparin Sodium (Porcine) (Heparin Sodium,Porcine 5,000 Unit/Ml Vial) 5,000 unit SUBCUT Q8H [facility] Last Admin: 02/05/24 14:52 Dose: Not Given Sodium Chloride (Ns) 1,000 mls @ 80 mls/hr IVCONT .[id number] [facility] Last Admin: 02/05/24 13:31 Dose: 80 mls/hr Magnesium Hydroxide (Milk Of Magnesia 30 Ml Oral.Susp) 30 ml PO DAILY PRN PRN Reason: Constipation Melatonin (Melatonin 3 Mg Tablet) 6 mg PO BEDTIME PRN PRN Reason: Insomnia Metoprolol Succinate (Metoprolol Succinate Er 25 Mg Tab.Er.24h) 25 mg PO DAILY [facility]; Protocol Last Admin: 02/05/24 08:03 Dose: 25 mg Multivitamins/Vitamin C (Multivitamin Tablet) 1 tab PO DAILY [facility] Last Admin: 02/05/24 08:03 Dose: 1 tab Naloxone HCl (Naloxone Hcl 0.4 Mg/Ml Vial) 0.04 mg IVPUSH Q5M PRN PRN Reason: Excessive sedation or RR < 8 Oxycodone HCl (Oxycodone Hcl Er 10 Mg Tab.Er.12h) 10 mg PO BID [facility] Last Admin: 02/05/24 10:38 Dose: 10 mg Oxycodone HCl (Oxycodone Hcl Immed Release 5 Mg Tablet) 10 mg PO Q4H PRN PRN Reason: Pain, Severe (Pain Scale 7-10) Last Admin: 02/05/24 13:30 Dose: 10 mg Pantoprazole Sodium (Pantoprazole Sodium 20 Mg Tablet.Dr) 20 mg PO DAILY@0630 [facility] Last Admin: 02/05/24 05:00 Dose: 20 mg Sodium Chloride (0.9 % Sodium Chloride Flush 3 Ml Syringe) 3 ml IVFLUSH QSHIFT [facility] Last Admin: 02/05/24 14:53 Dose: Not Given Tamsulosin HCl (Tamsulosin Hcl 0.4 Mg Capsule) 0.8 mg PO DAILY [facility] Last Admin: 02/05/24 08:03 Dose: 0.8 mg Tiotropium [place] (Tiotropium [place] 2.5 Mcg 1 Puff/2.5 Mcg Mist.Inhal) 2 puff INHALE DAILY [facility] Last Admin: 02/05/24 11:49 Dose: Not Given Home Medications ?Medication ?Instructions ?Recorded ?Confirmed ?Last Taken ?Type aspirin 81 mg tablet,delayed 81 mg PO DAILY 01/12/20 02/04/24 02/04/24 06:00 History release (Luis Low Dose Aspirin) pantoprazole 40 mg tablet,delayed 80 mg PO DAILY@0630 01/12/20 02/04/24 02/04/24 06:00 History release tamsulosin 0.4 mg capsule 0.8 mg PO DAILY 01/12/20 02/04/24 02/04/24 06:00 History atorvastatin 10 mg tablet 10 mg PO DAILY 05/04/20 02/04/24 02/04/24 06:00 History xuklioyk-dw-ndzyy 300 mcg-K 60 1 tab PO DAILY 10/02/23 02/04/24 02/04/24 06:00 History mcg-lycop 600 mcg-lutein 300 mcg tablet (Centrum Silver Men) gabapentin 400 mg capsule 400 mg PO QID PRN pain 12/17/23 02/04/24 02/04/24 06:00 History metoprolol succinate 25 mg 25 mg PO DAILY 12/17/23 02/04/24 02/04/24 06:00 History tablet,extended release 24 hr albuterol sulfate 90 mcg/actuation 2 puff inhalation Q4H PRN 01/07/24 02/04/24 Unknown History aerosol inhaler shortness of breath or wheezing umeclidinium 62.5 mcg/actuation 1 inh inhalation DAILY 01/07/24 02/04/24 02/04/24 06:00 History blister powder for inhalation (Incruse Ellipta) Physical Exam 2 Vital Signs and Narrative: Vital Signs: Last Vital Signs Temp 98.6 F 02/05/24 15:32 Pulse 83 02/05/24 15:32 Resp 20 02/05/24 15:32 BP 128/60 02/05/24 15:32 Pulse Ox 97 02/05/24 15:32 O2 Del Method Room Air 02/05/24 15:32 O2 Flow Rate 96 02/04/24 13:03 BMI result Body Mass Index 24.2 Const: Other: General esting comfortably in no acute distress. Neck supple ,no JVD. CVS regular rate rhythm, Respiratory lungs clear to auscultation, no respiratory distress, no wheeze, no rhonchi. Gastrointestinal abdomen soft, non tender, bowel sounds audible, no guarding , no rigidity. Extremities right BKA dressing saturated with blood, left lower extremity pitting edema Neuro non focal Skin no rash Psych appropriate affect Results Labs 02/05/24 07:15 02/05/24 09:09 Labs: Laboratory Results - last 24 hr 02/05/24 02/05/24 07:15 09:09 MCV 90.9 MCH 29.5 MCHC 32.5 RDW 13.8 Plt Count 281 D MPV 9.1 L Immature Gran % (Auto) 0.6 H Neut % (Auto) 75.6 H Lymph % (Auto) 9.5 L Foster % (Auto) 13.8 H Eos % (Auto) 0.2 Baso % (Auto) 0.3 Lymph # (Auto) 1.1 L Foster # (Auto) 1.5 H Eos # (Auto) 0.0 Baso # (Auto) 0.0 Abs Immat Gran (auto) 0.07 H Absolute Neuts (auto) 8.5 H Absolute Nucleated RBC 0.000 Nucleated RBC % (auto) 0.0 Smear Tech's Comments VERIFIED Anion Gap 12 Estim Creat Clear Calc 98.5 Estimated GFR > 60 Random Glucose 116 H Calcium 9.1 D Assessment and Plan (1) Hematuria: Status: Acute Plan 63-year-old gentleman with past medical history significant for atrial fibrillation not on anticoagulation, BPH, peripheral arterial disease, COPD, consult obtained for hematuria Acute hematuria: Patient noted to have 3 episodes of hematuria patient denies abdominal pain, no urinary symptoms of urgency and frequency will hold aspirin and heparin and check CBC How will consult Urology if hematuria persist will hold CBI at this time. Right below-knee amputation postoperative day 1: Good pain control Continue current analgesics Dressing saturated in blood recommend dressing change as per vascular surgery Monitor H&H COPD, - no acute exacerbation,continue home inhalers AFib stable heart rate not on anticoagulation continue metoprolol BPH - continue tamsulosin Full code VTE prophylaxis: Hold heparin due to hematuria /compression boot left leg Thank you for the consultation will follow patient along with you.
[2024-02-05 16:57] LABS: Hematocrit 29.6 % (42.0-52.0); Hemoglobin 9.7 g/dl (14.0-18.0); Mean Corpuscular HGB Conc 32.8 g/dl (31.0-36.0); Mean Corpuscular Hemoglobin 30.4 pg (27.0-33.0); Mean Corpuscular Volume 92.8 fL (80.0-98.0); Mean Platelet Volume 9.6 fL (9.4-12.4); Platelet Count 283 X10*3/uL (160-400); Red Blood Count 3.19 X10*6/uL (4.60-5.80); Red Cell Distribution Width 13.8 % (11.0-16.0); White Blood Count 9.4 X10*3/uL (4.8-10.8)
[2024-02-05 20:00] VITALS: BP 137/65; PULSE 70; RESP 20; TEMP 37.2; O2SAT 97
[2024-02-05] MEDS: Gabapentin 100 MG CAPSULE PO (20:25)
[2024-02-06 04:00] VITALS: BP 137/63; PULSE 74; RESP 20; TEMP 36.8; O2SAT 97
[2024-02-06] MEDS: oxyCODONE HCl Immed Release 5 MG TABLET 10 MG PO ×5 (04:21→21:08)
[2024-02-06] MEDS: Omeprazole 40 MG CAPSULE.DR PO (05:50)
[2024-02-06 06:59] LABS: Hematocrit 30.4 % (42.0-52.0); Hemoglobin 9.6 g/dl (14.0-18.0); Mean Corpuscular HGB Conc 31.6 g/dl (31.0-36.0); Mean Corpuscular Volume 91.8 fL (80.0-98.0); Mean Platelet Volume 9.7 fL (9.4-12.4); Platelet Count 309 X10*3/uL (160-400); Red Blood Count 3.31 X10*6/uL (4.60-5.80); Red Cell Distribution Width 13.6 % (11.0-16.0); White Blood Count 9.3 X10*3/uL (4.8-10.8)
[2024-02-06 07:12] LABS: Albumin Level 2.7 g/dL (3.5-5.0); Anion Gap 13 (12-20); Blood Urea Nitrogen 10 mg/dL (9-16); Calcium 8.9 mg/dL (8.4-10.2); Carbon Dioxide 24 mmol/L (22-29); Chloride 103 mmol/L (96-108); Creatinine Clr Calc Pharmacy 106.3; Estimated Glomerular Filt Rate > 60; Glucose Random 98 mg/dL (60-115); Potassium 3.8 mmol/L (3.3-5.1); Sodium 136 mmol/L (135-145)
[2024-02-06 08:00] VITALS: BP 128/60; PULSE 76; RESP 12; TEMP 36.4; O2SAT 97
[2024-02-06] MEDS: Tiotropium Bromide 2.5 mcg 1 PUFF/2.5 MCG MIST.INHAL 2 PUFF INHALE (08:08)
[2024-02-06] MEDS: Fluticasone/Vilanterol 200/25 BLST.W.DEV 1 PUFF INHALE (08:08)
[2024-02-06] MEDS: Tamsulosin HCL 0.4 MG CAPSULE 0.8 MG PO (08:09)
[2024-02-06] MEDS: Atorvastatin Calcium 10 MG TABLET PO (08:10)
[2024-02-06] MEDS: Gabapentin 100 MG CAPSULE PO ×3 (08:10→20:12)
[2024-02-06] MEDS: oxyCODONE HCl ER 10 MG TAB.ER.12H PO ×2 (08:10→20:12)
[2024-02-06] MEDS: Metoprolol Succinate ER 25 MG TAB.ER.24H PO (08:10)
[2024-02-06] MEDS: Multivitamin TABLET 1 TAB PO (08:10)
[2024-02-06] MEDS: 0.9 % Sodium Chloride Flush 3 ML SYRINGE IVFLUSH ×2 (08:10→16:14)
[2024-02-06 08:11] VITALS: PULSE 74; RESP 18; O2SAT 97
--- NOTE | 2024-02-06 09:40 | HO.VASCPN ---
Subjective Subjective Date of Service: 02/06/24 Patient reports: no new complaints and feels better Interval history: Patient seen and examined. Events over the last day noted. He continues to have pain which is out of proportion to what you would expect. Otherwise seems to be doing relatively well. White count is down. H&H appear to be stable. Now for routine dressing change. Physical Exam Vital Signs: Vital Signs: Last Vital Signs Temp 97.5 F 02/06/24 08:00 Pulse 74 02/06/24 08:11 Resp 18 02/06/24 08:11 BP 128/60 02/06/24 08:00 Pulse Ox 97 02/06/24 08:00 O2 Del Method Room Air 02/06/24 08:00 O2 Flow Rate 96 02/04/24 13:03 BMI result Body Mass Index 24.2 Const: General: cooperative, healthy appearing and comfortable Orientation/consciousness: oriented to person, oriented to place and oriented to time HEENT: Head: Yes normal to inspection Neck: Neck: Yes normal visual inspection Carotids: no bruits Chest: Chest palpation & inspection: normal inspection of the chest Resp: Effort & Inspection: normal respiratory effort and able to speak in complete sentences Auscultation: clear to auscultation bilaterally, no crackles, no rales, no rhonchi and no wheezes Cardio: Rate: regular rate Rhythm: regular rhythm Heart sounds: S1 normal heart sound present and S2 normal heart sound present Bruits: no carotid bruits Peripheral pulses: Peripheral pulses 2+ throughout GI: Inspection: Yes normal to inspection Skin: Other: Right BKA stump appears well healed Wounds: no wounds Hair: normal Neuro: General: oriented to person, oriented to place and oriented to time Cranial nerves: Yes CN's II-XII intact bilaterally and Yes Normal hearing present Cognition (Neuro): normal cognition Motor exam (neuro): 5/5 motor strength present throughout Extrem: Other: venous exam: No significant superficial varicosities or spider telangiectasias, minimal edema General: No clubbing, No cyanosis and No edema Psych: Appearance: grossly normal Mental Status: mental status grossly normal Speech and movement: Normal speech and movement present Progress Note: A&P Assessment and plan (1) Below-knee amputation of right lower extremity: Status: Acute Assessment and Plan: In short patient appears to be doing well status post BKA. Pain control continues to be an issue and we will have to sort that out. He will most likely require rehab placement. Continue with physical therapy. He has been started on gabapentin. If stable hopefully transfer to rehab tomorrow. Time Spent With Patient Time: Total time managing care of this patient today ____ minutes. Procedures Date of Service Date of Service: 02/06/24 Quality Stroke Does the patient have a stroke diagnosis?: No VTE Prior VTE?: No VTE Risk Level:: Medical - moderate - high VTE Device Contraindication: Treatment Not Indicated VTE Drug Contraindication: N/A - Med Ordered
--- NOTE | 2024-02-06 14:18 | PC.NURSE ---
DAVID dressing staining, surgeon approved this RN to change dressing
[2024-02-06 15:03] VITALS: BP 111/63; PULSE 67; RESP 16; TEMP 36.6; O2SAT 96
--- NOTE | 2024-02-06 15:15 | P.PNIM_ITS ---
Subjective Subjective Date of Service: 02/06/24 Interval History: Complaining of pain at site of surgery, decreased by mouth intake, persistent hematuria, no clots, denies abdominal pain, no urinary symptoms, no fevers, no chills. Review of Systems All other system reviewed and are negative. Physical Exam 2 Vital Signs: Vital Signs: Last Vital Signs Temp 97.9 F 02/06/24 15:03 Pulse 67 02/06/24 15:03 Resp 16 02/06/24 15:03 BP 111/63 02/06/24 15:03 Pulse Ox 96 02/06/24 15:03 O2 Del Method Room Air 02/06/24 15:03 O2 Flow Rate 96 02/04/24 13:03 BMI result Body Mass Index 24.2 Const: Other: General resting comfortably in no acute distress. Neck supple ,no JVD. CVS regular rate rhythm, Respiratory lungs clear to auscultation, no respiratory distress, no wheeze, no rhonchi. Gastrointestinal abdomen soft, non tender, bowel sounds audible, no guarding , no rigidity. Extremities right BKA dressing dry, left lower extremity pitting edema Neuro non focal Skin no rash Psych appropriate affect Objective Data Active Medications Acetaminophen (Acetaminophen 325 Mg Tablet) 650 mg PO Q6H PRN PRN Reason: Pain, Mild (Pain Scale 1-3), fever or headache Albuterol Sulfate (Albuterol Sulfate 90 Mcg 8 Gm Inhaler) 2 puff INHALE Q4H PRN PRN Reason: shortness of breath or wheezing Albuterol/Ipratropium (Albuterol/Iprat 2.5/0.5mg 3 Ml Ampul.Neb) 3 ml INHALE BID PRN PRN Reason: wheezing Atorvastatin Calcium (Atorvastatin Calcium 10 Mg Tablet) 10 mg PO DAILY [facility] Last Admin: 02/06/24 08:10 Dose: 10 mg Documented By: LUIS Calcium Carbonate (Calcium Carbonate 750 Mg Tab.Chew) 750 mg PO Q4H PRN PRN Reason: Heartburn Fluticasone/Vilanterol (Fluticasone/Vilanterol 200/25 Blst.W.Dev) 1 puff INHALE RDAILY [facility] Last Admin: 02/06/24 08:08 Dose: 1 puff Documented By: LALA Gabapentin (Gabapentin 100 Mg Capsule) 100 mg PO TID [facility] Last Admin: 02/06/24 08:10 Dose: 100 mg Documented By: LUIS Heparin Sodium (Porcine) (Heparin Sodium,Porcine 5,000 Unit/Ml Vial) 5,000 unit SUBCUT Q8H [facility] Last Admin: 02/05/24 14:52 Dose: Not Given Documented By: MAYA Non-Admin Reason: Patient Refused Magnesium Hydroxide (Milk Of Magnesia 30 Ml Oral.Susp) 30 ml PO DAILY PRN PRN Reason: Constipation Melatonin (Melatonin 3 Mg Tablet) 6 mg PO BEDTIME PRN PRN Reason: Insomnia Metoprolol Succinate (Metoprolol Succinate Er 25 Mg Tab.Er.24h) 25 mg PO DAILY [facility]; Protocol Last Admin: 02/06/24 08:10 Dose: 25 mg Documented By: LUIS Multivitamins/Vitamin C (Multivitamin Tablet) 1 tab PO DAILY [facility] Last Admin: 02/06/24 08:10 Dose: 1 tab Documented By: LUIS Naloxone HCl (Naloxone Hcl 0.4 Mg/Ml Vial) 0.04 mg IVPUSH Q5M PRN PRN Reason: Excessive sedation or RR < 8 Omeprazole (Omeprazole 40 Mg Capsule.Dr) 40 mg PO DAILY@0630 [facility] Last Admin: 02/06/24 05:50 Dose: 40 mg Documented By: ROSAMARIA Oxycodone HCl (Oxycodone Hcl Er 10 Mg Tab.Er.12h) 10 mg PO BID [facility] Last Admin: 02/06/24 08:10 Dose: 10 mg Documented By: LUIS Oxycodone HCl (Oxycodone Hcl Immed Release 5 Mg Tablet) 10 mg PO Q4H PRN PRN Reason: Pain, Severe (Pain Scale 7-10) Last Admin: 02/06/24 12:10 Dose: 10 mg Documented By: LUCIAME Sodium Chloride (0.9 % Sodium Chloride Flush 3 Ml Syringe) 3 ml IVFLUSH QSHIFT [facility] Last Admin: 02/06/24 08:10 Dose: 3 ml Documented By: LUIS Tamsulosin HCl (Tamsulosin Hcl 0.4 Mg Capsule) 0.8 mg PO DAILY [facility] Last Admin: 02/06/24 08:09 Dose: 0.8 mg Documented By: LUIS Tiotropium Rew (Tiotropium Rew 2.5 Mcg 1 Puff/2.5 Mcg Mist.Inhal) 2 puff INHALE DAILY [facility] Last Admin: 02/06/24 08:08 Dose: 2 puff Documented By: LALA Labs 02/06/24 05:36 02/06/24 05:36 Labs: Laboratory Results - last 24 hr 02/05/24 02/06/24 16:45 05:36 MCV 92.8 91.8 MCH 30.4 29.0 MCHC 32.8 31.6 RDW 13.8 13.6 Plt Count 283 309 MPV 9.6 9.7 Absolute Nucleated RBC 0.000 0.000 Nucleated RBC % (auto) 0.0 0.0 Anion Gap 13 Estim Creat Clear Calc 106.3 Estimated GFR > 60 Random Glucose 98 Calcium 8.9 Albumin 2.7 L Assessment and Plan (1) Hematuria: Status: Acute (2) BPH (benign prostatic hyperplasia): Status: Acute Plan 63-year-old gentleman with past medical history significant for atrial fibrillation not on anticoagulation, BPH, peripheral arterial disease, COPD, consult obtained for hematuria Acute hematuria: Persistent hematuria no clots,no abdominal pain, no urinary symptoms of urgency and frequency , hold aspirin and heparin and follow CBC consult Urology if hematuria persist will hold CBI at this time. Right below-knee amputation postoperative day 2: Continue current analgesics and management as per surgery Added ensure supplements t.i.d. ivf x 1 liter dec po intake. PT recommend acute rehab COPD, - no acute exacerbation,continue home inhalers AFib stable heart rate not on anticoagulation continue metoprolol BPH - continue tamsulosin Full code VTE prophylaxis: Hold heparin due to hematuria /compression boot left leg Quality Stroke Does the patient have a stroke diagnosis?: No VTE Prior VTE?: No VTE Risk Level:: Medical - moderate - high VTE Device Contraindication: Treatment Not Indicated VTE Drug Contraindication: N/A - Med Ordered
--- NOTE | 2024-02-06 15:49 | HO.WOUND ---
Wound Consult: Initial 63yr old?male admitted to [facility] [place] on 02/04/24 - See progress notes and H&P for detailed history.? Wound consult placed for blanchable redness to coccyx.? Patient agreeable to assessment and photo documentation.? Patient was admitted for Right BKA by Dr. Knott see history for details. The patient has had a complex medical history for the past few months - he reports he has been sedentary for the past two months spending many hours in his recliner at home. He reports pain and tenderness to his buttock area. He was repositioned and pillows placed for proper off loading - he reported feeling increased comfort and support. Recommend Q2hr turns with pillows. Sacrym / Buttock Etiology: ??Friction and MASD Wound Bed: red intact blanchable tissue - there are two areas that are dark red intact but remains blanchable they have epidermal peeling noted consisitent with friction. Patient reports he is scooting inbed and in the chair at home. Drainage / Odor: None Edges: ? irregular Lucinda wound: red pink blanchable tissue - ? No Induration, Fluctuance or Warmth noted Pain: pain and tenderness reported Goals of Treatment: ? Off Load Pressure - foam dressing to aid in pressure redistribution and to protect from friction. Of note the patient does not suffer from incontinence however his dry flow pad underneath him was moist with urine due to difficulty with urinal per patient statement. He reports he is comfortable with its use does not need alternative at this time. Importance of dry cool environment given to patient - demonstrates understanding. Recommendations: 1. Turn and Reposition every 2 hours and as needed for patient comfort.? Use pillows or wedges to support off loading positions. 2. Off Load all bony prominences with use of pillows and heel boots if needed.? Apply Preventative foams where needed. ? 3. Monitor for incontinence and moisture control, use barrier creams when needed for prevention and treatment. 4. Provide adequate and supplemental nutrition.? 5. Order low air loss mattress. 6. When applicable maintain blood glucose levels per Providers order. 7. Sacrum - Off Load Pressure with Q2hr turns and pillows. Cleanse with Ph balanced wipes, pat dry. Apply skin prep to skin. cover with sacral foam dressing. Change every 5 days and PRN. Re-consult wound care Nurse for wound deterioration or wound changes.
--- NOTE | 2024-02-06 15:52 | MHC.CM.PN ---
IMM 02/05/24 S/P RT BKA. PT REC ACUTE REHAB, PT DECLINES. DP Home with resumption of [facility]. Patients son will provide transportation home.
[2024-02-06] MEDS: Lactated Ringers 1,000 ML 100 ML IVCONT (16:14)
[2024-02-06 18:59] VITALS: BP 134/75; PULSE 70; RESP 18; TEMP 36.2; O2SAT 97
[2024-02-06] MEDS: Melatonin 3 MG TABLET 6 MG PO (20:12)
[2024-02-07] MEDS: oxyCODONE HCl Immed Release 5 MG TABLET 10 MG PO ×4 (01:49→15:56)
[2024-02-07 03:14] VITALS: BP 118/60; PULSE 79; RESP 16; TEMP 36.6; O2SAT 99
[2024-02-07] MEDS: Omeprazole 40 MG CAPSULE.DR PO (04:39)
[2024-02-07] MEDS: Heparin Sodium,Porcine 5,000 UNIT/ML VIAL 5000 UNIT SUBCUT ×3 (04:39→19:56)
[2024-02-07 06:15] LABS: Hematocrit 31.4 % (42.0-52.0); Hemoglobin 10.1 g/dl (14.0-18.0); Mean Corpuscular HGB Conc 32.2 g/dl (31.0-36.0); Mean Corpuscular Hemoglobin 29.3 pg (27.0-33.0); Mean Platelet Volume 9.3 fL (9.4-12.4); Platelet Count 352 X10*3/uL (160-400); Red Blood Count 3.45 X10*6/uL (4.60-5.80); Red Cell Distribution Width 13.5 % (11.0-16.0)
[2024-02-07 07:49] VITALS: BP 142/65; PULSE 74; RESP 17; TEMP 36.4; O2SAT 98
[2024-02-07] MEDS: Tiotropium Bromide 2.5 mcg 1 PUFF/2.5 MCG MIST.INHAL 2 PUFF INHALE (08:01)
[2024-02-07] MEDS: Fluticasone/Vilanterol 200/25 BLST.W.DEV 1 PUFF INHALE (08:01)
[2024-02-07 08:12] VITALS: PULSE 78; RESP 16; O2SAT 99
[2024-02-07] MEDS: 0.9 % Sodium Chloride Flush 3 ML SYRINGE IVFLUSH ×3 (09:30→19:57)
[2024-02-07] MEDS: oxyCODONE HCl ER 10 MG TAB.ER.12H PO ×2 (09:30→19:57)
[2024-02-07] MEDS: Multivitamin TABLET 1 TAB PO (09:30)
[2024-02-07] MEDS: Gabapentin 100 MG CAPSULE PO ×3 (09:30→19:57)
[2024-02-07 09:31] VITALS: BP 142/65; PULSE 78
[2024-02-07] MEDS: Atorvastatin Calcium 10 MG TABLET PO (09:31)
[2024-02-07] MEDS: Metoprolol Succinate ER 25 MG TAB.ER.24H PO (09:31)
[2024-02-07] MEDS: Tamsulosin HCL 0.4 MG CAPSULE 0.8 MG PO (09:31)
--- NOTE | 2024-02-07 09:50 | P.DS_ITS ---
DS: Providers Provider Date of Service: 02/07/24 Date of admission: 02/04/24 10:23 Primary care physician: Quinton Callahan MD Consults: 02/05/24 13:51 Consult to Hospitalist Routine Comment: Consulting Provider: [facility] [place] Hospitalists Reason For Exam: hematuria per RN 02/06/24 00:22 Consult to Wound Care Routine Reason for consultation: Redness/PI to coccyx DS: Diagnosis Discharge Diagnosis (1) Hematuria: Status: Acute (2) BPH (benign prostatic hyperplasia): Status: Acute DS: Summary Hospital Course Hospital Course: Zan is s/p right BKA from Sunday, Feb 06. He has been hemodynamically stable since. He does have complaints of pain out of proportion with exam/procedure. He does continue on both long acting and short acting pain medications and Gabapentin was added as well. We will continue with those upon discharge. PT has assessed him and we are in agreement that Zan should go to [facility] for ongoing rehab/therapy. The pt is in agreement with that this morning. We discussed the importance of good nutrition in healing this morning as well. The pt has had a decrease in PO intake, he states due to worrying/depression. We discussed the importance of drinking enough water as well. He has been having some hematuria, which we will have him follow up with Urology. We will have him follow up in our office in 2w for incision check. Time Attestation Total time managing care of this patient today: 45 mintues. Discharge Coordination Time (in mins): 45 Quality: Safe Use of Opioids Does Pt have an Active Cancer Diagnosis on the Problem List?: No Quality: Stroke Does the patient have a stroke diagnosis?: No Physical Exam Vital Signs: Vital Signs: Last Vital Signs Temp 97.6 F 02/07/24 07:49 Pulse 78 02/07/24 09:31 Resp 16 02/07/24 08:12 BP 142/65 H 02/07/24 09:31 Pulse Ox 98 02/07/24 07:49 O2 Del Method Room Air 02/07/24 07:49 O2 Flow Rate 96 02/04/24 13:03 BMI result Body Mass Index 24.2 Const: General: comfortable and no acute distress Orientation/consciousness: patient oriented x3 HEENT: Ears: hearing grossly normal bilaterally Resp: Effort & Inspection: normal respiratory effort and able to speak in complete sentences Auscultation: clear to auscultation bilaterally Cardio: Rate: regular rate Rhythm: regular rhythm Heart sounds: S1 normal heart sound present and S2 normal heart sound present Bruits: no abdominal aortic bruits, no carotid bruits, no femoral bruits and no renal bruits GI: Palpation (GI): No Abdominal aortic bruit present Neuro: General: patient oriented x3 Cranial nerves: Yes CN's II-XII intact bilaterally Extrem: Other: Right BKA site: dressing not taken down this morning. DS: Data Data Completed and Pending Completed studies during hospitalization [Text1]: Pending at discharge 02/04/24 11:58 Surgical [PTH] Routine Procedures Bypass Right Femoral Artery to Popliteal Artery with Autologous Venous Tissue, Open Approach (08/13/23) Excision of Right Saphenous Vein, Open Approach (08/13/23) Introduction of Other Thrombolytic into Peripheral Artery, Percutaneous Approach (01/07/24) Introduction of Vasopressor into Peripheral Vein, Percutaneous Approach (01/19) Transfusion of Nonautologous Frozen Plasma into Peripheral Vein, Percutaneous Approach (01/07/24) Transfusion of Nonautologous Platelets into Peripheral Vein, Percutaneous Approach (01/07/24) Transfusion of Nonautologous Red Blood Cells into Peripheral Vein, Percutaneous Approach (01/07/24) Labs on day of discharge: Laboratory Results - last 24 hr 02/07/24 05:57 WBC 9.0 RBC 3.45 L Hgb 10.1 L Hct 31.4 L MCV 91.0 MCH 29.3 MCHC 32.2 RDW 13.5 Plt Count 352 MPV 9.3 L Absolute Nucleated RBC 0.000 Nucleated RBC % (auto) 0.0 Discharge Plan Discharge Anticipated Discharge Date/Time: 02/07/24 09:58 Patient Disposition: Xfer Inpatient Rehab Fac Discharge Diagnosis: S/P right BKA Referrals: Quinton Callahan MD [Primary Care Provider] - 1 Week Discharge Medications: Continued oxycodone 10 mg tablet 10 mg PO TID PRN (Reason: pain) Qty: 30 0RF Rx Instructions: Partial Fill upon patient request. aspirin [Luis Low Dose Aspirin] 81 mg Tablet,Delayed Release (Dr/Ec) 81 mg PO DAILY tamsulosin 0.4 mg Capsule 0.8 mg PO DAILY pantoprazole 40 mg Tablet,Delayed Release (Dr/Ec) 80 mg PO DAILY@0630 [facility] [phone] mcg Tablet 1 tab PO DAILY albuterol sulfate 90 mcg/actuation HFA aerosol inhaler 2 puff inhalation Q4H PRN (Reason: shortness of breath or wheezing) Incruse Ellipta 62.5 mcg/actuation blister with device 1 inh INHALATION DAILY atorvastatin 10 mg tablet 10 mg PO DAILY fluticasone propion-salmeterol [Wixela Inhub] 500-50 mcg/dose blister with device 1 inh inhalation Q12H Qty: 60 6RF ipratropium-albuterol 0.5 mg-3 mg(2.5 mg base)/3 mL solution for nebulization 3 ml inhalation BID PRN (Reason: wheezing) Qty: 180 0RF gabapentin 400 mg capsule 400 mg PO QID PRN (Reason: pain) metoprolol succinate 25 mg tablet extended release 24 hr 25 mg PO DAILY Discharge Orders: Discharge Order (Routine); Ordered 02/07/24 Ordered By: Sera Saxena Activity on Discharge: As tolerated Stand Alone Forms: Patient Portal Discharge page Print Language: [place] Citizen Care Plan Goals: STR for PT/OT. Healing s/p right BKA. Eventual prosthetic once healing has completed. Health Concerns: S/P right BKA. Increased worry/depression. Plan of Treatment: STR for PT/OT prior to going home. Assessment: s/p right BKA
--- NOTE | 2024-02-07 11:18 | MHC.CM.PN ---
PT REQUESTING STR INSTEAD OF [facility], HE REPORTS [facility] [place] IS PREFERRED [facility] IS OFFERING A BED AND WILL SUBMIT FOR AUTH
--- NOTE | 2024-02-07 11:39 | HO.PM.IMPN ---
Subjective Subjective Date of Service: 02/07/24 Interval History: Feeling better this morning, stable pain control, hematuria resolved urine dark colored, denies chest pain, no epigastric discomfort, on aspirin for peripheral arterial disease. Appetite improved tolerating diet with no nausea, no vomiting or abdominal pain Review of Systems All other system reviewed and are negative. Physical Exam Vital Signs: Vital Signs: Last Vital Signs Temp 97.6 F 02/07/24 07:49 Pulse 78 02/07/24 09:31 Resp 16 02/07/24 08:12 BP 142/65 H 02/07/24 09:31 Pulse Ox 98 02/07/24 07:49 O2 Del Method Room Air 02/07/24 07:49 O2 Flow Rate 96 02/04/24 13:03 BMI result Body Mass Index 24.2 Const: Other: General resting comfortably in no acute distress. Neck supple ,no JVD. CVS regular rate rhythm, Respiratory lungs clear to auscultation, no respiratory distress, no wheeze, no rhonchi. Gastrointestinal abdomen soft, non tender, bowel sounds audible, no guarding , no rigidity. Extremities right BKA dressing dry, left lower extremity pitting edema improving Neuro non focal Skin no rash Psych appropriate affect Objective Data Active Medications Acetaminophen (Acetaminophen 325 Mg Tablet) 650 mg PO Q6H PRN PRN Reason: Pain, Mild (Pain Scale 1-3), fever or headache Albuterol Sulfate (Albuterol Sulfate 90 Mcg 8 Gm Inhaler) 2 puff INHALE Q4H PRN PRN Reason: shortness of breath or wheezing Albuterol/Ipratropium (Albuterol/Iprat 2.5/0.5mg 3 Ml Ampul.Neb) 3 ml INHALE BID PRN PRN Reason: wheezing Atorvastatin Calcium (Atorvastatin Calcium 10 Mg Tablet) 10 mg PO DAILY [facility] Last Admin: 02/07/24 09:31 Dose: 10 mg Documented By: CHELY Calcium Carbonate (Calcium Carbonate 750 Mg Tab.Chew) 750 mg PO Q4H PRN PRN Reason: Heartburn Fluticasone/Vilanterol (Fluticasone/Vilanterol 200/25 Blst.W.Dev) 1 puff INHALE RDAILY [facility] Last Admin: 02/07/24 08:01 Dose: 1 puff Documented By: KENJI Gabapentin (Gabapentin 100 Mg Capsule) 100 mg PO TID [facility] Last Admin: 02/07/24 09:30 Dose: 100 mg Documented By: CHELY Heparin Sodium (Porcine) (Heparin Sodium,Porcine 5,000 Unit/Ml Vial) 5,000 unit SUBCUT Q8H [facility] Last Admin: 02/07/24 04:39 Dose: 5,000 unit Documented By: ROSA Magnesium Hydroxide (Milk Of Magnesia 30 Ml Oral.Susp) 30 ml PO DAILY PRN PRN Reason: Constipation Melatonin (Melatonin 3 Mg Tablet) 6 mg PO BEDTIME PRN PRN Reason: Insomnia Last Admin: 02/06/24 20:12 Dose: 6 mg Documented By: ROSA Metoprolol Succinate (Metoprolol Succinate Er 25 Mg Tab.Er.24h) 25 mg PO DAILY [facility]; Protocol Last Admin: 02/07/24 09:31 Dose: 25 mg Documented By: CHELY Multivitamins/Vitamin C (Multivitamin Tablet) 1 tab PO DAILY [facility] Last Admin: 02/07/24 09:30 Dose: 1 tab Documented By: CHELY Naloxone HCl (Naloxone Hcl 0.4 Mg/Ml Vial) 0.04 mg IVPUSH Q5M PRN PRN Reason: Excessive sedation or RR < 8 Omeprazole (Omeprazole 40 Mg Capsule.Dr) 40 mg PO DAILY@0630 [facility] Last Admin: 02/07/24 04:39 Dose: 40 mg Documented By: ROSA Oxycodone HCl (Oxycodone Hcl Er 10 Mg Tab.Er.12h) 10 mg PO BID [facility] Last Admin: 02/07/24 09:30 Dose: 10 mg Documented By: CHELY Oxycodone HCl (Oxycodone Hcl Immed Release 5 Mg Tablet) 10 mg PO Q6H PRN PRN Reason: Pain, Severe (Pain Scale 7-10) Sodium Chloride (0.9 % Sodium Chloride Flush 3 Ml Syringe) 3 ml IVFLUSH QSHIFT [facility] Last Admin: 02/07/24 09:30 Dose: 3 ml Documented By: CHELY Tamsulosin HCl (Tamsulosin Hcl 0.4 Mg Capsule) 0.8 mg PO DAILY [facility] Last Admin: 02/07/24 09:31 Dose: 0.8 mg Documented By: HO.PARROWA Tiotropium [place] (Tiotropium [place] 2.5 Mcg 1 Puff/2.5 Mcg Mist.Inhal) 2 puff INHALE DAILY [facility] Last Admin: 02/07/24 08:01 Dose: 2 puff Documented By: KENJI Labs 02/07/24 05:57 02/06/24 05:36 Labs: Laboratory Results - last 24 hr 02/07/24 05:57 MCV 91.0 MCH 29.3 MCHC 32.2 RDW 13.5 Plt Count 352 MPV 9.3 L Absolute Nucleated RBC 0.000 Nucleated RBC % (auto) 0.0 Assessment and Plan (1) Hematuria: Status: Acute (2) Below-knee amputation of right lower extremity: Status: Acute Plan 63-year-old gentleman with past medical history significant for atrial fibrillation not on anticoagulation, BPH, peripheral arterial disease, COPD, consult obtained for hematuria Acute hematuria: Hematuria resolved, no clots,no abdominal pain, no urinary symptoms of urgency and frequency , Hematocrit stable resume aspirin and anticoagulation Right below-knee amputation postoperative day 3: Continue current analgesics and management as per surgery ensure supplements t.i.d. s/p ivf x 1 liter , encourage by mouth intake PT recommend acute rehab COPD, - no acute exacerbation,continue home inhalers AFib stable heart rate not on anticoagulation continue metoprolol BPH - continue tamsulosin Full code VTE prophylaxis: compression boot left leg Quality Stroke Does the patient have a stroke diagnosis?: No VTE Prior VTE?: No VTE Risk Level:: Medical - moderate - high VTE Device Contraindication: Treatment Not Indicated VTE Drug Contraindication: N/A - Med Ordered
[2024-02-07 16:00] VITALS: BP 122/59; PULSE 72; RESP 17; TEMP 36.8; O2SAT 99
--- NOTE | 2024-02-07 18:39 | PC.NURSE ---
PT not D/C Today to Rehab, still awaiting Auth from Insurance company to discharge patient.
[2024-02-07 19:08] VITALS: BP 118/64; PULSE 78; RESP 18; TEMP 36.8; O2SAT 100
[2024-02-07] MEDS: Melatonin 3 MG TABLET 6 MG PO (19:58)
[2024-02-08] VITALS (7 sets, daily range): BP systolic 119–125; BP diastolic 56–60; PULSE 55–70; RESP 16–18; TEMP 36.4–37.6; O2SAT 96–99
[2024-02-08] MEDS: Heparin Sodium,Porcine 5,000 UNIT/ML VIAL 5000 UNIT SUBCUT ×3 (05:05→20:59)
[2024-02-08] MEDS: Omeprazole 40 MG CAPSULE.DR PO (05:05)
[2024-02-08] MEDS: oxyCODONE HCl Immed Release 5 MG TABLET 10 MG PO ×2 (05:09→11:54)
[2024-02-08] MEDS: Tiotropium Bromide 2.5 mcg 1 PUFF/2.5 MCG MIST.INHAL 2 PUFF INHALE (08:07)
[2024-02-08] MEDS: Fluticasone/Vilanterol 200/25 BLST.W.DEV 1 PUFF INHALE (08:07)
[2024-02-08] MEDS: oxyCODONE HCl ER 10 MG TAB.ER.12H PO ×2 (09:14→20:59)
[2024-02-08] MEDS: 0.9 % Sodium Chloride Flush 3 ML SYRINGE IVFLUSH (09:14)
[2024-02-08] MEDS: Gabapentin 100 MG CAPSULE PO ×3 (09:14→20:59)
[2024-02-08] MEDS: Metoprolol Succinate ER 25 MG TAB.ER.24H PO (09:14)
[2024-02-08] MEDS: Tamsulosin HCL 0.4 MG CAPSULE 0.8 MG PO (09:14)
[2024-02-08] MEDS: Multivitamin TABLET 1 TAB PO (09:14)
[2024-02-08] MEDS: Atorvastatin Calcium 10 MG TABLET PO (09:15)
--- NOTE | 2024-02-08 11:36 | HO.PM.IMPN ---
Subjective Subjective Date of Service: 02/08/24 Interval History: Being followed for hematuria Good pain control status post right BKA, hematuria resolved denies urinary symptoms of urgency frequency or dysuria, no abdominal pain, no acute events overnight. Review of Systems All other system reviewed and are negative. Physical Exam Vital Signs: Vital Signs: Last Vital Signs Temp 98.8 F 02/08/24 07:48 Pulse 66 02/08/24 09:14 Resp 17 02/08/24 08:09 BP 121/57 L 02/08/24 09:14 Pulse Ox 98 02/08/24 07:48 O2 Del Method Room Air 02/08/24 07:48 O2 Flow Rate 96 02/04/24 13:03 BMI result Body Mass Index 24.2 Const: Other: General resting comfortably in no acute distress. Neck supple ,no JVD. CVS regular rate rhythm, Respiratory lungs clear to auscultation, no respiratory distress, no wheeze, no rhonchi. Gastrointestinal abdomen soft, non tender, bowel sounds audible, no guarding , no rigidity. Extremities right BKA dressing dry, left lower extremity pitting edema improving Neuro non focal Skin no rash Psych appropriate affect Objective Data Active Medications Acetaminophen (Acetaminophen 325 Mg Tablet) 650 mg PO Q6H PRN PRN Reason: Pain, Mild (Pain Scale 1-3), fever or headache Albuterol Sulfate (Albuterol Sulfate 90 Mcg 8 Gm Inhaler) 2 puff INHALE Q4H PRN PRN Reason: shortness of breath or wheezing Albuterol/Ipratropium (Albuterol/Iprat 2.5/0.5mg 3 Ml Ampul.Neb) 3 ml INHALE BID PRN PRN Reason: wheezing Atorvastatin Calcium (Atorvastatin Calcium 10 Mg Tablet) 10 mg PO DAILY [facility] Last Admin: 02/08/24 09:15 Dose: 10 mg Documented By: CHELY Calcium Carbonate (Calcium Carbonate 750 Mg Tab.Chew) 750 mg PO Q4H PRN PRN Reason: Heartburn Fluticasone/Vilanterol (Fluticasone/Vilanterol 200/25 Blst.W.Dev) 1 puff INHALE RDAILY [facility] Last Admin: 02/08/24 08:07 Dose: 1 puff Documented By: JERILYN Gabapentin (Gabapentin 100 Mg Capsule) 100 mg PO TID [facility] Last Admin: 02/08/24 09:14 Dose: 100 mg Documented By: CHELY Heparin Sodium (Porcine) (Heparin Sodium,Porcine 5,000 Unit/Ml Vial) 5,000 unit SUBCUT Q8H [facility] Last Admin: 02/08/24 05:05 Dose: 5,000 unit Documented By: ALE Magnesium Hydroxide (Milk Of Magnesia 30 Ml Oral.Susp) 30 ml PO DAILY PRN PRN Reason: Constipation Melatonin (Melatonin 3 Mg Tablet) 6 mg PO BEDTIME PRN PRN Reason: Insomnia Last Admin: 02/07/24 19:58 Dose: 6 mg Documented By: ALE Metoprolol Succinate (Metoprolol Succinate Er 25 Mg Tab.Er.24h) 25 mg PO DAILY [facility]; Protocol Last Admin: 02/08/24 09:14 Dose: 25 mg Documented By: CHELY Multivitamins/Vitamin C (Multivitamin Tablet) 1 tab PO DAILY [facility] Last Admin: 02/08/24 09:14 Dose: 1 tab Documented By: CHELY Naloxone HCl (Naloxone Hcl 0.4 Mg/Ml Vial) 0.04 mg IVPUSH Q5M PRN PRN Reason: Excessive sedation or RR < 8 Omeprazole (Omeprazole 40 Mg Capsule.Dr) 40 mg PO DAILY@0630 [facility] Last Admin: 02/08/24 05:05 Dose: 40 mg Documented By: ALE Oxycodone HCl (Oxycodone Hcl Er 10 Mg Tab.Er.12h) 10 mg PO BID [facility] Last Admin: 02/08/24 09:14 Dose: 10 mg Documented By: CHELY Oxycodone HCl (Oxycodone Hcl Immed Release 5 Mg Tablet) 10 mg PO Q6H PRN PRN Reason: Pain, Severe (Pain Scale 7-10) Last Admin: 02/08/24 05:09 Dose: 10 mg Documented By: ALE Sodium Chloride (0.9 % Sodium Chloride Flush 3 Ml Syringe) 3 ml IVFLUSH QSHIFT [facility] Last Admin: 02/08/24 09:14 Dose: 3 ml Documented By: CHELY Tamsulosin HCl (Tamsulosin Hcl 0.4 Mg Capsule) 0.8 mg PO DAILY [facility] Last Admin: 02/08/24 09:14 Dose: 0.8 mg Documented By: CHELY Tiotropium [place] (Tiotropium [place] 2.5 Mcg 1 Puff/2.5 Mcg Mist.Inhal) 2 puff INHALE DAILY [facility] Last Admin: 02/08/24 08:07 Dose: 2 puff Documented By: JERILYN Labs 02/07/24 05:57 02/06/24 05:36 Assessment and Plan (1) Hematuria: Status: Acute Plan 63-year-old gentleman with past medical history significant for atrial fibrillation not on anticoagulation, BPH, peripheral arterial disease, COPD, consult obtained for hematuria Acute hematuria: Hematuria resolved, no clots,no abdominal pain, no urinary symptoms of urgency and frequency , Hematocrit stable resume aspirin and anticoagulation Right below-knee amputation postoperative day 3: Continue current analgesics and management as per surgery ensure supplements t.i.d. PT recommend rehab COPD, - no acute exacerbation,continue home inhalers AFib stable heart rate not on anticoagulation continue metoprolol BPH - continue tamsulosin Full code VTE prophylaxis: compression boot left leg/heparin Will sign off Quality Stroke Does the patient have a stroke diagnosis?: No VTE Prior VTE?: No VTE Risk Level:: Medical - moderate - high VTE Device Contraindication: Treatment Not Indicated VTE Drug Contraindication: N/A - Med Ordered
--- NOTE | 2024-02-08 15:48 | MHC.CM.PN ---
PTS SON NOTIFIED OF DC TO [facility] AT 5
[2024-02-08] MEDS: Acetaminophen 325 MG TABLET 650 MG PO (16:03)
== END 2024-02-08 21:52 | DRG 241 ==
LOC: HO.SSSA 13:15 → HO.S3 13:27
PROVIDERS: Hospitalist; Physician Assistant Surgical; Admitting Provider Surgery Vascular Surgery; PCP Internal Medicine Medical Oncology; Visit Provider Surgery Vascular Surgery
PROC: 0Y6H0Z2 Detachment at Right Lower Leg, Mid, Open Approach (ICD-10-PCS; CPT 27880; principal; 2024-02-04 11:40)
DX: E11.51 Type 2 diabetes mellitus with diabetic peripheral angiopathy without gangrene (principal); L97.519 Non-pressure chronic ulcer of other part of right foot with unspecified severity; I70.235 Atherosclerosis of native arteries of right leg with ulceration of other part of foot; J44.9 Chronic obstructive pulmonary disease, unspecified; F17.210 Nicotine dependence, cigarettes, uncomplicated; N40.0 Benign prostatic hyperplasia without lower urinary tract symptoms; R31.9 Hematuria, unspecified; Z71.6 Tobacco abuse counseling; Z79.51 Long term (current) use of inhaled steroids; Z79.82 Long term (current) use of aspirin; Z79.899 Other long term (current) drug therapy
CPT/HCPCS: 36415; 80048; 82040; 85025; 85027; 85610; 85730; 86850; 86900; 86901; 88307; 88311; 94640; 97110; 97162; 97530; J0690; J1100; J1171; J1644; J2003; J2250; J2270; J2371; J2405; J2704; J2795; J3010; J7120

== ENCOUNTER → 2024-02-04 10:23 | Outpatient (BNV) | payer MEDICARE, SELFPAY | PROVIDERS: Admitting Provider Surgery Vascular Surgery; PCP Internal Medicine Medical Oncology; Visit Provider Hospitalist | DX: R31.9 Hematuria, unspecified (principal); N40.0 Benign prostatic hyperplasia without lower urinary tract symptoms | CPT/HCPCS: 99222; 99232 ==

== ENCOUNTER → 2024-02-04 10:23 | Outpatient (BNV) | payer MEDICARE, SELFPAY | PROVIDERS: Admitting Provider Surgery Vascular Surgery; PCP Internal Medicine Medical Oncology; Visit Provider Surgery Vascular Surgery | DX: S88.111A Complete traumatic amputation at level between knee and ankle, right lower leg, initial encounter (principal) | CPT/HCPCS: 27880; 99024 ==

== ENCOUNTER 2024-02-18 12:56 | Outpatient (AMB) | payer MEDICARE, SELFPAY ==
--- NOTE | 2024-02-18 12:58 | A.OFFVIS_ITS ---
Intake Visit Reasons: 2 week follow up s/p R BKA 02/04/2024 Intake Note: 2 week follow up Right BKA 02/04/24. Pt is at [facility] rehab. Pt states he is still having some phantom pain and some pain in the remainder of the leg. Pt states he has some issues w/ the dressing falling off and has some bleeding/d rainage. Pt has one spot over incision that has been draining heavily. Accompanied by: Self / Same As Patient Allergies No Known Allergies Allergy (Verified 02/18/24 13:05) HPI HPI 2 week follow up s/p R BKA 02/04/2024: Details: Zan is presenting today for a 2w f/up s/p right BKA on 02/03. He has been doing well, he is currently at [facility] in [place] for rehab. He states his pain has been controlled with Oxy, Braydon, and Tylenol. He states he is having both pain at the site of the BKA up his thigh as well as phantom pain. He states they are changing his dressings daily, sometimes 2-3/day due to drainage from one part of the BKA site. [facility] Medical History Krish angina Left bundle branch block Bakers cyst Nicotine dependence, cigarettes, uncomplicated Arthritis BPH (benign prostatic hyperplasia) Elevated cholesterol Complex regional pain syndrome i of right lower limb S/P angiogram of extremity (07/18/23) Atrial fibrillation History of Palmer's esophagus Splenic vein thrombosis History of femoral angiogram GERD (gastroesophageal reflux disease) COPD (chronic obstructive pulmonary disease) Peripheral arterial disease Surgical History History of tonsillectomy Hx of oral surgery Hx of tracheostomy History of esophagogastroduodenoscopy (EGD) H/O colonoscopy Social History (Updated 02/18/24 @ 13:06 by GILBERTO Gonzáles) Household Members: Family Household Members Other:: Son, son girlfriend, grandbaby Housing: Apartment Housing Other:: 3 stairs to climb Are you a primary critical care unit nurse to a significant other at home: No Do you presently have visiting nurse or other home services: Yes Comment: Dr Knott made aware of absent pulse and sensation in right foot Patient Tobacco Use Status: Former Tobacco user Tobacco use type: Cigarette Cigarette Packs Per Day: 0.5 Cigarettes Per Day: 10 Years Smoked: 50 e-Cigarette/Vaping Use: Former Use Second Hand Smoke Exposure: No Substance Use Type: Marijuana service: No Review of Systems Const Reports as per HPI and Denies weakness ENT Reports Normal hearing present and Denies dizziness Card Reports as per HPI, Denies chest pain, Denies chest pain at rest, Denies chest pain with activity, Denies dyspnea and Denies dyspnea on exertion Resp Reports as per HPI, Denies cough, Denies dyspnea and Denies dyspnea on exertion GI Reports as per HPI, Denies abdominal pain, Denies nausea and Denies vomiting Musc Denies numbness Skin/Breast Reports as per HPI, Denies erythema and Denies wounds Neuro Reports Normal hearing present, Denies dizziness, Denies numbness, Denies Sensory deficit (Neuro) and Denies weakness Psych Reports no additional complaints Endo Reports no additional complaints Physical Exam Const General: healthy appearing and no acute distress Orientation/consciousness: patient oriented x3 HEENT Head: Yes normal to inspection Ears: hearing grossly normal bilaterally Mouth: Normal oral and palatal mucosa present Resp Effort & Inspection: normal respiratory effort and able to speak in complete sentences Auscultation: clear to auscultation bilaterally Cardio Jugular venous distension: no JVD Rate: regular rate Rhythm: regular rhythm Heart sounds: S1 normal heart sound present and S2 normal heart sound present Bruits: no abdominal aortic bruits, no carotid bruits, no femoral bruits and no renal bruits Peripheral pulses: Peripheral pulses 2+ throughout GI Inspection: Yes normal to inspection Palpation (GI): No Abdominal aortic bruit present Skin General skin exam: no rashes or lesions noted Wounds: no wounds Hair: normal Neuro General: patient oriented x3 Cranial nerves: Yes Normal hearing present Cognition (Neuro): normal cognition Gait exam (Neuro): Normal gait present Motor exam (neuro): 5/5 motor strength present throughout Sensory Exam: No Sensory deficit (Neuro) Extrem Other: Right BKA site: small amount of yellow serous fluid draining from the middle of the site. Small amount wiped away. No bleeding noted. 11 lazarus removed, from both ends of the site. All sutures removed. Skin is approximating well. Some dry eschar/blood noted around lazarus remaining. No erythema noted around the site. No warmth. General: Yes normal to inspection, Yes full ROM, Yes capillary refill normal and Yes normal gait Assessment & Plan Assessment & Plan (1) Below-knee amputation of right lower extremity: Code(s): S88.111A - Complete traumatic amputation at level between knee and ankle, right lower leg, initial encounter Category: Medical Plan: Zan is presenting today s/p right BKA on 02/03. He has been doing a little better. He continues to endorse pain at the site and in the right thigh but it is much better and controlled. He does endorse phantom pain, which he states feels worse. We removed 11 lazarus from both distal ends of the site. The skin is approximating well. The sutures were removed as well. We will have him return in one week for removal of the rest of the lazarus. We have applied Xeroform, 4x4, and Kerlix wrap. We will have the facility continue with daily dressing changes. We discussed with the pt that if anything changes to reach out to us and we will see him sooner. Coding Level of Care Code Global (98245) Diagnoses Below-knee amputation of right lower extremity S88.111A
== END 2024-02-18 13:42 | disposition home or self-care (01) ==
PROVIDERS: PCP Internal Medicine Medical Oncology; Visit Provider Surgery Vascular Surgery
DX: S88.111A Complete traumatic amputation at level between knee and ankle, right lower leg, initial encounter (principal)
CPT/HCPCS: 99024

== ENCOUNTER → 2024-02-18 12:56 | Outpatient (BNVA) | payer MEDICARE, SELFPAY | PROVIDERS: PCP Internal Medicine Medical Oncology; Visit Provider Surgery Vascular Surgery | DX: Z47.81 Encounter for orthopedic aftercare following surgical amputation (principal); Z89.511 Acquired absence of right leg below knee | CPT/HCPCS: 99212 ==

== ENCOUNTER 2024-02-26 11:11 | Outpatient (AMB) | payer MEDICARE, SELFPAY ==
--- NOTE | 2024-02-26 11:28 | MHC.OFFVIS ---
Intake Visit Reasons: 1 week follow up/staple removal Intake Note: follow up Right BKA 02/04/24, the [facility] rehab. Does need lazarus removed Accompanied by: Self / Same As Patient Allergies No Known Allergies Allergy (Verified 02/26/24 11:29) HPI HPI 1 week follow up/staple removal: Details: Zan is presenting today for a one-week follow-up for the remaining lazarus to be removed. He states he is feeling a little bit better, states the pain is a little bit better controlled. He states since increasing the gabapentin at night he has been able to sleep better. He continues with phantom pain but states that is also getting better. He does continue to endorse some pain at the BKA site what appears is more tolerable. He denies any new complaints today. [facility] Medical History Krish angina Left bundle branch block Bakers cyst Nicotine dependence, cigarettes, uncomplicated Arthritis BPH (benign prostatic hyperplasia) Elevated cholesterol Complex regional pain syndrome i of right lower limb S/P angiogram of extremity (07/18/23) Atrial fibrillation History of Palmer's esophagus Splenic vein thrombosis History of femoral angiogram GERD (gastroesophageal reflux disease) COPD (chronic obstructive pulmonary disease) Peripheral arterial disease Surgical History History of tonsillectomy Hx of oral surgery Hx of tracheostomy History of esophagogastroduodenoscopy (EGD) H/O colonoscopy Social History Household Members: Family Household Members Other:: Son, son girlfriend, grandbaby Housing: Apartment Housing Other:: 3 stairs to climb Are you a primary home health care coordinator to a significant other at home: No Do you presently have visiting nurse or other home services: Yes Comment: Dr Knott made aware of absent pulse and sensation in right foot Patient Tobacco Use Status: Former Tobacco user Tobacco use type: Cigarette Cigarette Packs Per Day: 0.5 Cigarettes Per Day: 10 Years Smoked: 50 e-Cigarette/Vaping Use: Former Use Second Hand Smoke Exposure: No Substance Use Type: Marijuana service: No Review of Systems Const Reports as per HPI and Denies weakness ENT Reports Normal hearing present and Denies dizziness Card Reports as per HPI, Denies chest pain, Denies chest pain at rest, Denies chest pain with activity, Denies dyspnea and Denies dyspnea on exertion Resp Reports as per HPI, Denies cough, Denies dyspnea and Denies dyspnea on exertion GI Reports as per HPI, Denies abdominal pain, Denies nausea and Denies vomiting Musc Denies numbness Skin/Breast Reports as per HPI, Denies erythema and Denies wounds Neuro Reports Normal hearing present, Denies dizziness, Denies numbness, Denies Sensory deficit (Neuro) and Denies weakness Psych Reports no additional complaints Endo Reports no additional complaints Physical Exam Const General: healthy appearing and no acute distress Orientation/consciousness: patient oriented x3 HEENT Head: Yes normal to inspection Ears: hearing grossly normal bilaterally Mouth: Normal oral and palatal mucosa present Resp Effort & Inspection: normal respiratory effort and able to speak in complete sentences Auscultation: clear to auscultation bilaterally Cardio Jugular venous distension: no JVD Rate: regular rate Rhythm: regular rhythm Heart sounds: S1 normal heart sound present and S2 normal heart sound present Bruits: no abdominal aortic bruits, no carotid bruits, no femoral bruits and no renal bruits Peripheral pulses: Peripheral pulses 2+ throughout GI Inspection: Yes normal to inspection Palpation (GI): No Abdominal aortic bruit present Skin General skin exam: no rashes or lesions noted Wounds: no wounds Hair: normal Neuro General: patient oriented x3 Cranial nerves: Yes Normal hearing present Cognition (Neuro): normal cognition Gait exam (Neuro): Normal gait present Motor exam (neuro): 5/5 motor strength present throughout Sensory Exam: No Sensory deficit (Neuro) Extrem Other: Right BKA site: Lazarus in place, all were removed. There is a small area on the medial aspect of the incision site that is open with a small amount of yellow slough noted, the wound bed has pink granulation tissue. The BKA site overall looks very good. The lazarus that were removed last week is well-approximated and there is no scabbing noted. There is some dry blood noted between all the lazarus, easily removed with a 4x4s. General: Yes normal to inspection, Yes full ROM, Yes capillary refill normal and Yes normal gait Assessment & Plan Assessment & Plan (1) Below-knee amputation of right lower extremity: Code(s): S88.111A - Complete traumatic amputation at level between knee and ankle, right lower leg, initial encounter Category: Medical Qualifiers: Encounter type: subsequent encounter Qualified Code(s): S88.111D - Complete traumatic amputation at level between knee and ankle, right lower leg, subsequent encounter Plan: Zan is presenting today for one-week follow up for complete removal of all the lazarus from his BKA site. He states he is doing much better and the pain is a little more tolerable. He does continue with phantom pain but states that is also more tolerable and we discussed ways to deal with this type of pain. He states that the increase in the gabapentin that nighttime has been helping with him sleeping. We are able to successfully remove all the lazarus, the patient tolerated the procedure well. We then dressed the site with Xeroform, 4x4s, ABD pad, and Kerlix wrap. We filled out the paperwork for the rehab facility and discussed the do dressing changes daily. We will have him follow up in 2 weeks for a wound care check. There are any questions or concerns, please do not hesitate to reach out to us. Coding Level of Care Code Global (45173) Diagnoses Below-knee amputation of right lower extremity, subsequent encounter S88.111D Encounter type: subsequent encounter
== END 2024-02-26 12:02 | disposition home or self-care (01) ==
PROVIDERS: PCP Internal Medicine Medical Oncology; Visit Provider Physician Assistant Surgical
DX: S88.111D Complete traumatic amputation at level between knee and ankle, right lower leg, subsequent encounter (principal)
CPT/HCPCS: 99024

== ENCOUNTER → 2024-02-26 11:11 | Outpatient (BNVA) | payer MEDICARE, SELFPAY | PROVIDERS: PCP Internal Medicine Medical Oncology; Visit Provider Physician Assistant Surgical | DX: Z47.81 Encounter for orthopedic aftercare following surgical amputation (principal); Z89.511 Acquired absence of right leg below knee | CPT/HCPCS: 99212 ==

== ENCOUNTER 2024-03-11 11:34 | Outpatient (AMB) | payer MEDICARE, SELFPAY ==
--- NOTE | 2024-03-11 11:40 | A.OFFVIS_ITS ---
Intake Visit Reasons: 2 week follow up R BKA 02/04/24 Intake Note: follow up Right BKA 02/04/24, Pt has VNA 3 x per week, pt changinf dressing on other days, sometimes more tahn once per day. Pt states he is having issues with keeping the bandage on, seems to slide off. The VNA had called yesterday to state that pt had sudden increase of drainage and redness. Accompanied by: Self / Same As Patient Allergies No Known Allergies Allergy (Verified 03/11/24 11:47) HPI HPI 2 week follow up R BKA 02/04/24: Details: Zan is presenting today for a 2 week follow-up status post right BKA on 02/04/2024. He is back at home and gets VNA services 3 days a week. He states he is changing his dressing the other days nursing is not coming to his house. He did have some physical therapy, but they are holding off on that until gets further in his healing process. He also will be getting occupational therapy services twice a week. He states his son moved in with him to help him around the house. Zan stating that he has been decreasing his pain medication and using more Ibuprofen and Gabapentin for the pain management as opposed to the Oxycodone. He states generally he continues with phantom pain, mostly at night. He states he is feeling better overall. [facility] Medical History Krish angina Left bundle branch block Bakers cyst Nicotine dependence, cigarettes, uncomplicated Arthritis BPH (benign prostatic hyperplasia) Elevated cholesterol Complex regional pain syndrome i of right lower limb S/P angiogram of extremity (07/18/23) Atrial fibrillation History of Palmer's esophagus Splenic vein thrombosis History of femoral angiogram GERD (gastroesophageal reflux disease) COPD (chronic obstructive pulmonary disease) Peripheral arterial disease Surgical History History of tonsillectomy Hx of oral surgery Hx of tracheostomy History of esophagogastroduodenoscopy (EGD) H/O colonoscopy Social History Household Members: Family Household Members Other:: Son, son girlfriend, grandbaby Housing: Apartment Housing Other:: 3 stairs to climb Are you a primary animal caretaker supervisor to a significant other at home: No Do you presently have visiting nurse or other home services: Yes Comment: Dr Knott made aware of absent pulse and sensation in right foot Patient Tobacco Use Status: Former Tobacco user Tobacco use type: Cigarette Cigarette Packs Per Day: 0.5 Cigarettes Per Day: 10 Years Smoked: 50 e-Cigarette/Vaping Use: Former Use Second Hand Smoke Exposure: No Substance Use Type: Marijuana service: No Review of Systems Const Reports as per HPI and Denies weakness ENT Reports Normal hearing present and Denies dizziness Card Reports as per HPI, Denies chest pain, Denies chest pain at rest, Denies chest pain with activity, Denies dyspnea and Denies dyspnea on exertion Resp Reports as per HPI, Denies cough, Denies dyspnea and Denies dyspnea on exertion GI Reports as per HPI, Denies abdominal pain, Denies nausea and Denies vomiting Musc Denies numbness Skin/Breast Reports as per HPI, Denies erythema and Denies wounds Neuro Reports Normal hearing present, Denies dizziness, Denies numbness, Denies Sensory deficit (Neuro) and Denies weakness Psych Reports no additional complaints Endo Reports no additional complaints Physical Exam Const General: healthy appearing and no acute distress Orientation/consciousness: patient oriented x3 HEENT Head: Yes normal to inspection Ears: hearing grossly normal bilaterally Mouth: Normal oral and palatal mucosa present Resp Effort & Inspection: normal respiratory effort and able to speak in complete sentences Auscultation: clear to auscultation bilaterally Cardio Jugular venous distension: no JVD Rate: regular rate Rhythm: regular rhythm Heart sounds: S1 normal heart sound present and S2 normal heart sound present Bruits: no abdominal aortic bruits, no carotid bruits, no femoral bruits and no renal bruits Peripheral pulses: Peripheral pulses 2+ throughout GI Inspection: Yes normal to inspection Palpation (GI): No Abdominal aortic bruit present Skin General skin exam: no rashes or lesions noted Wounds: no wounds Hair: normal Neuro General: patient oriented x3 Cranial nerves: Yes Normal hearing present Cognition (Neuro): normal cognition Gait exam (Neuro): Normal gait present Motor exam (neuro): 5/5 motor strength present throughout Sensory Exam: No Sensory deficit (Neuro) Extrem Other: Right BKA site: 2 small wounds 1st one in the medial aspect of the site measuring 2.5 cm x 1 cm. Second wound in the central aspect of the site measuring 1.5 cm x 0.7 cm. The central wound appeared full and upon pressing down on the wound with a long Q-tip there was some serous fluid that leaked out. General: Yes normal to inspection, Yes full ROM, Yes capillary refill normal and Yes normal gait Assessment & Plan Assessment & Plan (1) Below-knee amputation of right lower extremity: Code(s): S88.111A - Complete traumatic amputation at level between knee and ankle, right lower leg, initial encounter Category: Medical Qualifiers: Encounter type: subsequent encounter Qualified Code(s): S88.111D - Comp lete traumatic amputation at level between knee and ankle, right lower leg, subsequent encounter Plan: Zan is presenting today as a 2 week follow up status right BKA on 02/04/2024. He has been discharged from the rehab and is now home. He states his son moved in with him to help him around the house. Does have VNA services 3 times a week and OT 2 times a week. He did have physical therapy but they are holding off on his therapy until he heals more. Juan does state that the last couple of days there has been more drainage from the BKA site, particularly in the middle section. Due to the serous fluid discharge as well as the 2 small open areas being on the moist side, we will change his dressings to alginate, 4x4s, Kerlix, and Tubigrip to be changed daily if the dressings were getting soaked; if they are not, then they can be changed every other day. We also discussed the importance of continue with the Ibuprofen and discussed not to go more than 2400 mg a day and to continue with the Gabapentin as well and wean himself off of the Oxycodone for pain control. We discussed a follow up in 2 weeks unless any other concerns come up and we discussed that he can call the office. There are any questions or concerns, please do not hesitate to reach out to us. Coding Level of Care Code Global (93993) Diagnoses Below-knee amputation of right lower extremity, subsequent encounter S88.111D Encounter type: subsequent encounter
== END 2024-03-11 15:23 | disposition home or self-care (01) ==
PROVIDERS: PCP Internal Medicine Medical Oncology; Visit Provider Physician Assistant Surgical
DX: S88.111D Complete traumatic amputation at level between knee and ankle, right lower leg, subsequent encounter (principal)
CPT/HCPCS: 99024

== ENCOUNTER → 2024-03-11 11:34 | Outpatient (BNVA) | payer MEDICARE, SELFPAY | PROVIDERS: PCP Internal Medicine Medical Oncology; Visit Provider Physician Assistant Surgical | DX: Z47.81 Encounter for orthopedic aftercare following surgical amputation (principal); Z89.511 Acquired absence of right leg below knee | CPT/HCPCS: 99212 ==

== ENCOUNTER 2024-03-25 13:08 | Outpatient (AMB) | payer MEDICARE, SELFPAY ==
--- NOTE | 2024-03-25 13:10 | A.OFFVIS_ITS ---
Intake Visit Reasons: 2 week follow up- R BKA Intake Note: Patient presents for 2 week follow up. Patients dressings are being changed three times a week by visiting nurse. Accompanied by: Self / Same As Patient Allergies No Known Allergies Allergy (Verified 03/25/24 13:16) HPI HPI 2 week follow up- R BKA: Details: Zan is presenting today is a 2 week follow up status post right BKA on 02/04/2024. He states he is doing well at home in his son has been helping around the house and driving in places. He states he is getting VNA services several times a week as well as PT and OT. He states he is also doing exercises when they are not at his house. He states that the nurse is impressed with how well the site is healing. The patient also states that he is happy with how it is healing. [facility] Medical History Krish angina Left bundle branch block Bakers cyst Nicotine dependence, cigarettes, uncomplicated Arthritis BPH (benign prostatic hyperplasia) Elevated cholesterol Complex regional pain syndrome i of right lower limb S/P angiogram of extremity (07/18/23) Atrial fibrillation History of Palmer's esophagus Splenic vein thrombosis History of femoral angiogram GERD (gastroesophageal reflux disease) COPD (chronic obstructive pulmonary disease) Peripheral arterial disease Surgical History History of tonsillectomy Hx of oral surgery Hx of tracheostomy History of esophagogastroduodenoscopy (EGD) H/O colonoscopy Social History Household Members: Family Household Members Other:: Son, son girlfriend, grandbaby Housing: Apartment Housing Other:: 3 stairs to climb Are you a primary resident care technician to a significant other at home: No Do you presently have visiting nurse or other home services: Yes Comment: Dr Knott made aware of absent pulse and sensation in right foot Patient Tobacco Use Status: Former Tobacco user Tobacco use type: Cigarette Cigarette Packs Per Day: 0.5 Cigarettes Per Day: 10 Years Smoked: 50 e-Cigarette/Vaping Use: Former Use Second Hand Smoke Exposure: No Substance Use Type: Marijuana service: No Review of Systems Const Reports as per HPI and Denies weakness ENT Reports Normal hearing present and Denies dizziness Card Reports as per HPI, Denies chest pain, Denies chest pain at rest, Denies chest pain with activity, Denies dyspnea and Denies dyspnea on exertion Resp Reports as per HPI, Denies cough, Denies dyspnea and Denies dyspnea on exertion GI Reports as per HPI, Denies abdominal pain, Denies nausea and Denies vomiting Musc Denies numbness Skin/Breast Reports as per HPI, Denies erythema and Denies wounds Neuro Reports Normal hearing present, Denies dizziness, Denies numbness, Denies Se nsory deficit (Neuro) and Denies weakness Psych Reports no additional complaints Endo Reports no additional complaints Physical Exam Const General: healthy appearing and no acute distress Orientation/consciousness: patient oriented x3 HEENT Head: Yes normal to inspection Ears: hearing grossly normal bilaterally Mouth: Normal oral and palatal mucosa present Resp Effort & Inspection: normal respiratory effort and able to speak in complete sentences Auscultation: clear to auscultation bilaterally Cardio Jugular venous distension: no JVD Rate: regular rate Rhythm: regular rhythm Heart sounds: S1 normal heart sound present and S2 normal heart sound present Bruits: no abdominal aortic bruits, no carotid bruits, no femoral bruits and no renal bruits Peripheral pulses: Peripheral pulses 2+ throughout GI Inspection: Yes normal to inspection Palpation (GI): No Abdominal aortic bruit present Skin General skin exam: no rashes or lesions noted Wounds: no wounds Hair: normal Neuro General: patient oriented x3 Cranial nerves: Yes Normal hearing present Cognition (Neuro): normal cognition Gait exam (Neuro): Normal gait present Motor exam (neuro): 5/5 motor strength present throughout Sensory Exam: No Sensory deficit (Neuro) Extrem Other: Right BKA site: Middle wound is measuring 1 cm x 1 cm x 0.5 cm (previous 1.5x0.7), with a small amount of serous drainage. The medial aspect wound is measuring 2.6 cm x 1.1 cm x 0.7 cm (previous 2.5x1) with also minimal drainage. The middle wound has gotten a little bit smaller the medial aspect wound has remained the same. General: Yes normal to inspection, Yes full ROM, Yes capillary refill normal and Yes normal gait Assessment & Plan Assessment & Plan (1) Below-knee amputation of right lower extremity: Code(s): S88.111A - Complete traumatic amputation at level between knee and ankle, right lower leg, initial encounter Category: Medical Qualifiers: Encounter type: subsequent encounter Qualified Code(s): S88.111D - Complete traumatic amputation at level between knee and ankle, right lower leg, subsequent encounter Plan: Zan has been doing well. He presents today for a 2 week follow up status post right BKA on 02/04/2024. He continues to get VNA, PT and OT services at home. He states he has been doing very well and has been working hard with exercising. He states he is happy with how the site is healing and he states the visiting nurse is stating the same. There continues to be a small amount of drainage from both sites, but has been lessening over the last few days per can. We will continue with the alginate dressing with 4x4s and Kerlix wrap, 3 times a week. We will follow up with us in 2 weeks. If there are any questions or concerns, please do not hesitate to reach out to us. Coding Level of Care Code Global (58518) Diagnoses Below-knee amputation of right lower extremity, subsequent encounter S88.111D Encounter type: subsequent encounter
--- OUTSIDE RECORDS SUMMARY | 2024-03-25 14:07 | XMS_ITS | Encounter Summary ---
Author Organization [facility] Address [phone] [place] [address] Care Team Providers Care Campus Supervisor Name Role Phone Quinton Callahan MD Primary Care Provider [phone] Encounter Details Date Type Department Care Team (Late st Contact Info) Description 12/08/[address] [facility] EKG [address] [place] [address] Social History Tobacco Use Types Packs/Day Years Used Date Smoking Tobacco: Never Assessed Education Answer Date Recorded Are you interested in more education? Not on trace e 11/26/2023 Are you concerned about learning? Not on file 11/26/2023 No 11/26/2023 No 11/26/2023 Digital Access Answer Date Recorded No 11/26/2023 No 11/26/2023 Reliable internet access at home? Not on file 11/26/2023 Device with a working camera? Not on file Intimate Partner Violence Answer Date R ecorded Are you denied basic needs s uch as food, clothing, or medical care? No 12/02/2023 In the past 12 months have y ou been in a relationship with a person who hurts, threatens, or tries to control you? No 12/02/2023 Are you denied basic needs s uch as food, clothing, or medical care? No 12/02/2023 In the past 12 months have y ou been in a relationship with a person who hurts, threatens, or tries to control you? No 12/02/2023 Sex and Gender Information Value Date Recorded Sex Assigned at Male 11/23/2023 11:14 AM EDT Gender Identity Male 11/23/2023 11:14 AM EDT Sexual Orientation Straight 11/23/2023 11 :14 AM EDT documented as of this encounter Plan of Treatment Not on file documented as of this encounter Visit Diagnoses Not on filedocumented in this encounter Care Teams Campus Supervisor Relationship Specialty Start Date End Date Quinton Callahan MD [address] [facility] [address] [place] [address] PCP - General Medical Oncology 11/23/23 documented as of this encounter Additional Source Comments The information contained in this document represents components of the legal health record. It is not the complete legal health record.[facility]
--- OUTSIDE RECORDS SUMMARY | 2024-03-25 14:07 | XMS_ITS | Continuity of Care Document ---
Author Organization [facility] Address [address] [place] [address] Care Team Providers Care Bar Tacker Name Role Phone [facility] KEON HEREDIA Primary Care Provider Assessment No assessment recorded. Plan of Treatment Reminders Order Date Submit Date Provider Last Modified By Organization Details Last Modified Time Details Appointments None record ed. Lab None record ed. Referral None record ed. Procedures None record ed. Surgeries None record ed. Imaging None record ed. Medication Orders None record ed. Patient TargetsNo targets recorded. Patient InstructionsNo instructions recorded. Reason for Referral None Reported. 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 2023 SAMANTHA [address] , [address], [place], [address], [facility] [employer] 4 10:18:23 Limb ischemia 9610754273691 5 Active 2023 [address] , [address], [place], [address], [facility] [employer] 4 10:19:49 Peripheral arterial disease 240472809 Active 2023 SAMANTHA [address] , [address], [place], [address], [facility] 4 10:21:45 Chronic obstructive pulmonary disease 70980734 Active [address], [address], [place], [address], [facility] 4 10:22:55 Gastroesoph ageal reflux disease 354289524 Active [address], [address], [place], [address], [facility] 4 10:23:11 Smoker 27789244 Active [address], [address], [place], [address], [facility] 4 10:23:08 Essential hypertensio n 91686162 Active [address], [address], [place], [address], [facility] 4 10:25:41 Hyperlipide angela 34286955 Active 2023 Yvonne Belcher [address] [facility], [address], [place], [address], [facility] 4 10:49:02 Peripheral vascular disease 020532197 Active 2023 Yvonne Belcher [address] [facility], [address], [place], [address], [facility] 4 10:49:07 Thrombosis of splenic artery 4617523250026 9106 Active 2023 ARaquel Belcher [address] [facility], [address], [place], [address], [facility] 4 10:49:17 Left bundle branch block 88515873 Active 2023 Elvaa Ye [address] 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, [address], [place], [address], [facility] 10:50:44 Problem Notes None recorded. Medical Equipment None Reported. Allergies No known drug allergies Medications Name Sig Start Date Stop Date Status Note LastModified by Organization Details LastModified Time oxycodone 5 mg tablet 10 mg po q 8 hrs and 10mg BID PRN pain 024 active Not Available Not Available Not Avai lable Vitals None Recorded Social History Question Answer Notes LastModified by Organizat ion Details LastModified Time Tobacco Smoking Status Current Every Day Smoker Iveth Diaz MD [address] [facility], [address], [place], [address], [facility] 02/11/2024 18:13:51 Do You Have An Advance Directive? Yes Information not available 02/11/2024 What Is Your Code Status? Full Code Information not available 02/11/2024 Which Illicit Or Recreational Drugs Have You Used? Cannabis Information not available 02/11/2024 Where Do You Live? Apartment Alone, 3 Steps To Enter Information not available 02/11/2024 Legal Guardian? No Informati on not available 02/11/2024 Do You Have A Medical Power Of Hospice Manager? Yes Information not available 02/11/2024 What Was The Date Of Your Most Recent Tobacco Screening? 02/11/2024 Information not available 02/11/2024 Do You Have An Out Of Hospital DNR? No Information not available 02/11/2024 How Much Tobacco Do You Smoke? 0.5 PPD Information not available 02/11/2024 Do You Use Any Illicit Or Recreational Drugs? Yes Information not available 02/11/2024 Has Tobacco Cessation Counseling Been Provided? Yes Information not available 02/11/2024 On What Date Was Tobacco Cessation Counseling Provided? 02/11/2024 Information not available 02/11/2024 How Many Years Have You Smoked Tobacco? 50 Information not available 02/11/2024 Have You Used IV Drugs? No Information not available 02/11/2024 Do You Or Have You Ever Used Any Other Forms Of Tobacco Or Nicotine? No Information not available 02/11/2024 Sex: Unknown Functional Status None recorded. Mental Status None recorded. Family History Relationship Description Onset Age of this Age Resolved Age Notes LastModified by Organization Details LastModified Time Father No current problems or disability glord Not available 02/09 10:19:41 Mother No current problems or disability glord Not available 02/09 10:19:41 Medical History No medical history recorded. Immunizations Vaccine Type Date Status Note Provider Nam e and Address Organization Details Recorded Time SARS-COV-2 (COVID-19) vaccine, UNSPECIFIED 06/25/2020 completed Nikiapeggy Montes [facility] [employer] [facility] 02/11/2024 12:20:14 SARS-COV-2 (COVID-19) vaccine, UNSPECIFIED 07/27/2020 completed Nikia Montes [facility] [employer] [facility] 02/11/2024 12:20:24 Past Encounters Encounter ID Performer Location Encounter Start Date Encounter Closed Date Diagnosis/Indication Diagnosis SNOMED-CT Code Diagnosis ICD10 Code Diagnosis Note [id number] SAMANTHA [facility] AT [address] [address] 02/10/2024 10:12:50 02/11/2024 14:36:04 Limb ischemia 0988824227 9105 I99.8 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 s/p R SFA - bk popliteal bypass with vein (Jones, 07/2023)con tinue oxycodone 10 mg TID PRNgabapen tin 400 mg QID PRN (odd, would make scheduled) monitor pain controlPT/ OT eval and treatfollo w up with surgeon in 2 weeksshrin ker to be placed once healed- add abd and celeste daily due to bleeding Peripheral arterial insufficiency 0052581868 34258 I73.9 see aboveASA 81 mg dailyfollo wed by vascular Benign pro static hyperplasia 387344451 N40.0 continue flomax 0.8 mg qhsmonitor for outflow issues Gastroesop hageal reflux disease 054863545 K21.9 pantoprazo le 80 mg dailyconsi lia reduction if toleratesm onitor reflux Blood in urine 95268857 R31.9 had inpatientm onitor for clearing Chronic ob structive pulmonary disease 44747926 J44.9 albuterol PRNincruse dailywixel a BIDmonitor resp status Essential hypertension 68355566 I10 assumed as pt is on metoprolol 25 mg daily but no documented htn dx at [facility] need to keep Constipation 56809782 K5 9.00 add colace 100 mg BIDmonitor for improvemen t [id number] Iveth Diaz MD [facility] AT [address] [address] 02/11/2024 15:43:03 02/12/2024 15:32:16 Limb ischemia 7932115884 9105 I99.8 Will change oxycodone to 10 mg q 6 hrs scheduled x 7 days, then 10 mg q 8 hrs scheduled x 7 days then 5 mg q 8 hrs prn.Will add APAP 975 mg TID and increase gabapentin to 600 mg TID.Contin ue ASA 81 mg qdMonitor pain controlNee ds PT/OT for strengthen ing, balance, gait training, safety and function.C ontinue fall precaution s.Monitor for safety.F/U with surgeon as planned. Peripheral arterial insufficiency 0180229361 51369 I73.89 Z89.511 As above. Benign pro static hyperplasia 233025524 N40.0 No current sxs.Contin ue tamsulosin 0.8 mg qhsMonitor urinary function Gastroesop hageal reflux disease 298957155 K21.9 No current sxs.Contin ue pantoprazo le 80 mg qdMonitor GI sxs. Blood in urine 17907350 R31.0 Had one episode inpt.Now resolved.M onitor for recurrence . Chronic ob structive pulmonary disease 64075647 J43.8 Resp status good at this time.Liv nue incruse ellipta qd, Wixela 500/50 BID, duonebs BID prn and albuterol MDI 2 puffs q 4 hrs prn.Monito r resp status. Essential hypertension 42053589 I10 In good control since here (HTN is on PCP problem list)Liv nue metoprolol 25 mg qdMonitor BP and labs. Constipation 45878158 K5 9.03 Will add miralax 17 gms qd and continue colace 100 mg BIDUse prn meds if needed.Mon itor bowel function. [id number] Nam [facility] AT [address] [address] 02/15/2024 10:31:46 02/18/2024 15:29:05 Postoperative wound cellulitis 121975652 L76.82 exam concerning for cellulitis with increased foul smelling discharges tart doxycyclin e 100mg BID x 10 days, probiotic qd x 14 dayscheck CBC w/diff, BMP Sundaywill obtain x-ray R stump r/o osteomonit or for worsening sxs Amputated below knee 299 381296 Z89.519 As above. Limb ischemia 3763706933 9105 I99.8 continue oxycodone to 10 mg q 6 hrs scheduled x 7 days, then 10 mg q 8 hrs scheduled x 7 days then 5 mg q 8 hrs prn.Add oxycodone 10mg q24h prn breakthrou gh paincontin ue APAP 975 mg TID and increase gabapentin to 600 mg TID.Contin ue ASA 81 mg qdF/U with surgeon as planned. [id number] Brandenshan Sharon [facility] AT [address] [address] 02/19/2024 07:36:20 02/21/2024 12:23:04 Postoperative wound cellulitis 097606633 L76.82 Continue doxycyclin e 100mg BID x 10 days, probiotic qd x 14 dayslabs and x-ray unremarkab lemonitor for resolution Limb ischemia 5112759731 9105 I99.8 continue oxycodone 10 mg q 8 hrs scheduled x 7 days then 5 mg q 8 hrs prn. oxycodone 10mg q24h prn breakthrou gh paincontin ue APAP 975 mg TID and gabapentin to 600 mg qam and afternoon, 900mg qhsContinu e ASA 81 mg qdconsult PMR management of painF/U with surgeon as planned. Amputated below knee 299 495961 Z89.519 As above. [id number] Brandenshan Sharon RUBIN AT [address] [address] 02/22/2024 09:19:49 02/25/2024 15:55:50 Postoperative wound cellulitis 370059291 L76.82 Continue doxycyclin e 100mg BID x 10 days, probiotic qd x 14 dayslabs and x-ray unremarkab lemonitor for resolution Limb ischemia 7982019011 9105 I99.8 continue oxycodone 10 mg q 8 hrs scheduled x 7 days then 5 mg q 8 hrs prn. oxycodone 10mg q24h prn breakthrou gh paincontin ue APAP 975 mg TID and gabapentin to 600 mg qam and afternoon, 900mg qhsContinu e ASA 81 mg qdconsult PMR management of painF/U with surgeon as planned. Amputated below knee 299 439025 Z89.519 As above. [id number] SanchezGayCooper [address]UNCAN[address] [address] 02/25/2024 07:30:39 02/26/2024 13:58:50 Postoperative wound cellulitis 745034318 L76.82 resolvedmo nitor for recurrence Limb ischemia 6654101469 9105 I99.8 continue oxycodone 10 mg q 8 hrs scheduled x 7 days then 5 mg q 8 hrs prn. oxycodone 10mg BID prn breakthrou gh paincontin ue APAP 975 mg TID, INcrease gabapentin to 900 mg qam and afternoon, 900mg qhsContinu e ASA 81 mg qdconsult PMR management of painF/U with surgeon as planned. Amputated below knee 299 052405 Z89.519 As above. [id number] Nam DUNCAN[address] [address] 02/28/2024 08:43:00 02/29/2024 10:22:21 Limb ischemia 1580278815 9105 I99.8 continue oxycodone 10 mg q 8 hrs scheduled x 7 days then 5 mg q 8 hrs prn. oxycodone 10mg BID prn breakthrou gh paincontin ue APAP 975 mg TID, gabapentin to 900 mg TIDContinu e ASA 81 mg qdconsult PMR management of painF/U with surgeon as planned. Amputated below knee 299 500463 Z89.519 As above. Health Concerns Section Related Observation LastModified by Organization Detai ls LastModified Time None Recorded Concern Status LastModified by Organization Details LastModified Time None Recorded Payers Encounter Date Sequence Insurance Name Policy Number Policy Matute Covered Member ID Matute Member ID Guarantor Name 02/28/2024 1 [employer] (MEDICARE REPLACEMENT PPO) [id number] Sanchez Encinas [id number] Zan Encinas Notes Date Note Type Note Provider Name and Address Organization Details Recorded Time 02/28/2024 text/html This is a 63 yo man who is being seen for acute rounding visit Patient had f/u vascular on 02/25recs to continue with daily dressing changes noted with small open area on medial aspectNo machine shorthand reporter or prosthesis yet. The site needs to be completely healed first. Can increase gabapentin 900mg TID and decrease oxycodone.f/u 03/11/24 Patient seen lying in bed with sales operations associate doing dressing change. He reports improvement in place with recent increase in gabapentin. He tells me he got 1-2 hours more sleep than usual and is happy about that His PMH includes HTN, COPD, splenic vein thrombosis (1999), GERD w/ Palmer's, BPH, current smoker and PAD s/p R SFA stent (2021) and recent R SFA-Bkpop bypass w/ vein (07/2023, Dr Bimal Knott), p/w ulcer of R great toe f/t/h occlusion of bypass now s/p R ELECTRICAL DRAFTER-AT bypass w ePTFE w/ patch angioplasties (Ratna 12/01). A_Cooper-Stuart is [address] [facility], [address], [place], [address], [facility] 02/28/2024 12:14:07
--- OUTSIDE RECORDS SUMMARY | 2024-03-25 14:07 | XMS_ITS | Continuity of Care Document ---
Author Organization [facility] Address [address] [place] [address] Care Team Providers Care Scrub Nurse Name Role Phone [facility] OTHER KEON HEREDIA Primary Care Provider [phone] Assessment No assessment recorded. 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 2023 SAMANTHA [address] , [address], [place], [address], [facility] [email or web address] 4 10:18:23 Limb ischemia 4784086114074 5 Active 2023 [address] , [address], [place], [address], [facility] [email or web address] 4 10:19:49 Peripheral arterial disease 960304742 Active 2023 SAMANTHA [address] , [address], [place], [address], [employer] [facility] 4 10:21:45 Chronic obstructive pulmonary disease 76543818 Active [address], [address], [place], [address], [employer] [facility] 4 10:22:55 Gastroesoph ageal reflux disease 942721363 Active [address], [address], [place], [address], [employer] [facility] 4 10:23:11 Smoker 59344176 Active [address], [address], [place], [address], [employer] [facility] 4 10:23:08 Essential hypertensio n 64535976 Active [address], [address], [place], [address], [employer] [facility] 4 10:25:41 Hyperlipide angela 98719404 Active 2023 Yvonne Belcher [address] [facility], [address], [place], [address], [employer] [facility] 4 10:49:02 Peripheral vascular disease 429100941 Active 2023 vYonne Belcher [address] [facility], [address], [place], [address], [employer] [facility] 4 10:49:07 Thrombosis of splenic artery 0435141871286 9106 Active 2023 ARaquel Belcher [address] [facility], [address], [place], [address], [employer] [facility] 4 10:49:17 Left bundle branch block 72954271 Active 2023 Elvaa Ye [address] [facility], [address], [place], [address], [employer] [facility] 4 10:49:21 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 Medical [...] Every Day Smoker Iveth Diaz MD [address] [facility], [address], [place], [address], [employer] [facility] 02/11/2024 18:13:51 Do You Have An [...] Do You Have A Medical Power Of Drive Man? Yes Information not available 02/11/2024 What Was [...] (COVID-19) vaccine, UNSPECIFIED 06/25/2020 completed Nikiapeggy Montes [facility] [employer] [facility] 02/11/2024 12:20:14 SARS-COV-2 (COVID-19) vaccine, UNSPECIFIED 07/27/2020 completed Nikia Montes [facility] [employer] [facility] 02/11/2024 12:20:24 Past Encounters Encounter ID Performer Location Encounter Start Date Encounter Closed Date Diagnosis/Indication Diagnosis SNOMED-CT Code Diagnosis ICD10 Code Diagnosis Note [id number] SAMANTHA [facility] AT [address] [address] 02/10/2024 10:12:50 02/11/2024 14:36:04 Limb ischemia 3611677650 9105 I99.8 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 s/p R SFA - bk popliteal bypass with vein ([place], 07/2023)con tinue oxycodone 10 mg TID PRNgabapen tin 400 mg QID PRN (odd, would make scheduled) monitor pain controlPT/ OT eval and treatfollo w up with surgeon in 2 weeksshrin ker to be placed once healed- add abd and celeste daily due to bleeding Peripheral arterial insufficiency 7438785704 92083 I73.9 see aboveASA 81 mg dailyfollo wed by vascular Benign pro static hyperplasia 450549167 N40.0 continue flomax 0.8 mg qhsmonitor for outflow issues Gastroesop hageal reflux disease 870425406 K21.9 pantoprazo le 80 mg dailyconsi lia reduction if toleratesm onitor reflux Blood in urine 52189595 R31.9 had inpatientm onitor for clearing Chronic ob structive pulmonary disease 65854940 J44.9 albuterol PRNincruse dailywixel a BIDmonitor resp status Essential hypertension 90945756 I10 assumed as pt is on metoprolol 25 mg daily but no documented htn dx at [facility] or [facility] need to keep Constipation 65383274 K5 9.00 add colace 100 mg BIDmonitor for improvemen t [id number] Iveth Diaz MD [facility] AT [address] [address] 02/11/2024 15:43:03 02/12/2024 15:32:16 Limb ischemia 0105079864 9105 I99.8 Will change oxycodone to 10 [...] with surgeon as planned. Peripheral arterial insufficiency 3448037524 86372 I73.89 Z89.511 As above. Benign pro static hyperplasia 350295373 N40.0 No current sxs.Contin ue tamsulosin 0.8 mg qhsMonitor urinary function Gastroesop hageal reflux disease 358308430 K21.9 No current sxs.Contin ue pantoprazo le 80 mg qdMonitor GI sxs. Blood in urine 62491831 R31.0 Had one episode inpt.Now resolved.M onitor for recurrence . Chronic ob structive pulmonary disease 86604309 J43.8 Resp status good at this time.Liv nue incruse ellipta qd, Wixela 500/50 BID, duonebs BID prn and albuterol MDI 2 puffs q 4 hrs prn.Monito r resp status. Essential hypertension 22476633 I10 In good control since here (HTN is on PCP problem list)Liv nue metoprolol 25 mg qdMonitor BP and labs. Constipation 55960203 K5 9.03 Will add miralax 17 gms qd and continue colace 100 mg BIDUse prn meds if needed.Mon itor bowel function. [id number] Nam [facility] AT [address] [address] 02/15/2024 10:31:46 02/18/2024 15:29:05 Postoperative wound cellulitis 931723402 L76.82 exam concerning for cellulitis with increased foul smelling discharges tart doxycyclin e 100mg BID x 10 days, probiotic qd x 14 dayscheck CBC w/diff, BMP Sundaywill obtain x-ray R stump r/o osteomonit or for worsening sxs Amputated below knee 299 550153 Z89.519 As above. Limb ischemia 2930547997 9105 I99.8 continue oxycodone to 10 mg q 6 hrs scheduled x 7 days, then 10 mg q 8 hrs scheduled x 7 days then 5 mg q 8 hrs prn.Add oxycodone 10mg q24h prn breakthrou gh paincontin ue APAP 975 mg TID and increase gabapentin to 600 mg TID.Contin ue ASA 81 mg qdF/U with surgeon as planned. [id number] Brandenshan Sharon [facility] AT [address] [address] 02/19/2024 07:36:20 02/21/2024 12:23:04 Postoperative wound cellulitis 261084659 L76.82 Continue doxycyclin e 100mg BID x 10 days, probiotic qd x 14 dayslabs and x-ray unremarkab lemonitor for resolution Limb ischemia 3644292940 9105 I99.8 continue oxycodone 10 mg q 8 hrs scheduled x 7 days then 5 mg q 8 hrs prn. oxycodone 10mg q24h prn breakthrou gh paincontin ue APAP 975 mg TID and gabapentin to 600 mg qam and afternoon, 900mg qhsContinu e ASA 81 mg qdconsult PMR management of painF/U with surgeon as planned. Amputated below knee 299 199750 Z89.519 As above. [id number] Brandenshan Sharon RUBIN AT [address] [address] 02/22/2024 09:19:49 02/25/2024 15:55:50 Postoperative wound cellulitis 495911449 L76.82 Continue doxycyclin e 100mg BID x 10 days, probiotic qd x 14 dayslabs and x-ray unremarkab lemonitor for resolution Limb ischemia 4021468652 9105 I99.8 continue oxycodone 10 mg q 8 hrs scheduled x 7 days then 5 mg q 8 hrs prn. oxycodone 10mg q24h prn breakthrou gh paincontin ue APAP 975 mg TID and gabapentin to 600 mg qam and afternoon, 900mg qhsContinu e ASA 81 mg qdconsult PMR management of painF/U with surgeon as planned. Amputated below knee 299 602724 Z89.519 As above. [id number] HallieCooper [address] [address] 02/25/2024 07:30:39 02/26/2024 13:58:50 Postoperative wound cellulitis 367693717 L76.82 resolvedmo nitor for recurrence Limb ischemia 5058506319 9105 I99.8 continue oxycodone 10 mg q 8 hrs scheduled x 7 days then 5 mg q 8 hrs prn. oxycodone 10mg BID prn breakthrou gh paincontin ue APAP 975 mg TID, INcrease gabapentin to 900 mg qam and afternoon, 900mg qhsContinu e ASA 81 mg qdconsult PMR management of painF/U with surgeon as planned. Amputated below knee 299 118620 Z89.519 As above. [id number] SanchezGayCooper [address] [address] 02/28/2024 08:43:00 02/29/2024 10:22:21 Limb ischemia 0678087565 9105 I99.8 continue oxycodone 10 mg q 8 hrs scheduled x 7 days then 5 mg q 8 hrs prn. oxycodone 10mg BID prn breakthrou gh paincontin ue APAP 975 mg TID, gabapentin to 900 mg TIDContinu e ASA 81 mg qdconsult PMR management of painF/U with surgeon as planned. Amputated below knee 299 219730 Z89.519 As above. [id number] Garrett Fletcher MD [facility] [address] [place] [address] 03/03/2024 11:24:29 03/03/2024 11:33:59 Limb ischemia 0902145102 9105 I99.8 s/p amputation cleared for discharge with services and ortho f/u in placedisch arged on oxycodone 5 mg q 8 prn pain #23 tablets given at time of dischargep atient will need appointmen t with PCP for f/u discussed with nursing to schedule prior to discharge Amputated below knee 299 881506 Z89.519 As above. Health Concerns Section Related Observation LastModified by Organization Detai ls LastModified Time None Recorded Concern Status LastModified by Organization Details LastModified Time None Recorded Payers Encounter Date Sequence Insurance Name Policy Number Policy Matute Covered Member ID Matute Member ID Guarantor Name 03/03/2024 1 [employer] (MEDICARE REPLACEMENT PPO) [id number] Zan Encinas [id number] Zan Encinas Notes Date Note Type Note Provider Name and Address Organization Details Recorded Time 03/03/2024 text/html Patient is a 63 yo male being discharged with provider out of building as patient no longer covered by insurance however social work does have services in place. Patient has follow up with ortho on 03/11 PCP follow up will be schedule for patient, discussed with nursing of note patient on oxycodone for pain and from admit note currently should be on 5 mg q 8 prn pain. Discharged with #23 tablets from initial history and physical note copied below This is a 63 yo man who is here for rehab after a hospitalization for a right BKA due to a non-healing RLE wound.He had been in and out of the hospital for wound infections and revascularization procedures. But continued with severe pain, so BKE was recommended.He was taken to the OR on 02/[address] Knott.Procedure was well tolerated.His pain remained diff to control and he was on both long and short acting opioids as well as gabapentin.He was transferred here on 02/07. Patient has improved by report with above f/u in place Garrett Fletcher MD [address] [facility], [address], [place], [address], [facility] [email or web address] 03/03/2024 11:33:58
--- OUTSIDE RECORDS SUMMARY | 2024-03-25 14:07 | XMS_ITS ---
Author Organization Quinton Callahan III, MD Address [address] [place] [place] [address] Care Team Providers Care Chest Pain Coordinator Name Role Phone Quinton Callahan Primary Care Provider REASON FOR VISIT Hospital Follow up Social History Sex Assigned At : Social History Observation Description Sex Assigned At Male Encounters Encounter Location Date Provider Diagnosis Quniton Callahan III, MD [address] [place] [address] [place] [address] 02/13/2024 Quinton Callahan Plan Of Treatment Next Appt Details Provider Name:Quinton Callahan, 10/15/2024 11:00:00 AM, [address] [place] [address] [place], [address], Progress Notes * Ana ENCINAShDOB:1960 (64 yo M)Acc No.[id number]:02/13/2024 Patient:?Zan ENCINAS Provider:?Quinton Callahan MD :1960???Age:63 Y???Sex:Male Duc e:02/13/2024 Address:[address] [place] [address], [facility] [address] [id number] Subjective: * Chief Complaints: * ???1. Hospital Follow up. * Medical History:? Objective: * Vitals:? Assessment: Plan: * Treatment: * Images: * The named appointment provid er may or may not be the originator of this progress note, and it is not deemed complete until electronically signed by the appointment provider. Sign off status: Pending * Provider:?Quinton Callahan MD Date:?01/26 Generated for Tristen bustamante/Jai/Henrry on:?03/25/2024 02:07 PM EST
--- OUTSIDE RECORDS SUMMARY | 2024-03-25 14:08 | XMS_ITS | Encounter Summary ---
Author Organization [facility] Address [phone] [place] [address] Care Team Providers Care Uniform Room Attendant Name Role Phone Quinton Callahan MD Primary Care Provider +1- [phone] Encounter Details Date Type Department Care Team (Late st Contact Info) Description 11/28/2023 Procedure Pass [facility] [address] [place] [address] Social History Tobacco Use Types Packs/Day Years [...] on filedocumented in this encounter Care Teams Uniform Room Attendant Relationship Specialty Start Date End Date Quinton Callahan MD [address] [facility] [address] [place] [address] PCP - General Medical Oncology 11/23/23 documented as of this encounter Additional Source Comments The information contained in this document represents components of the legal health record. It is not the complete legal health record.[facility]
--- OUTSIDE RECORDS SUMMARY | 2024-03-25 14:08 | XMS_ITS | Encounter Summary ---
Author Organization [facility] Address [phone] [place] [address] Care Team Providers Care Equity Manager Name Role Phone Quinton Callahan MD Primary Care Provider +1- [phone] Encounter Details Date Type Department Care Team (Late st Contact Info) Description 11/28/2023 Procedure Pass [facility] [address] [place] [address] Social History Tobacco Use Types Packs/Day Years [...] on filedocumented in this encounter Care Teams Equity Manager Relationship Specialty Start Date End Date Quinton Callahan MD [address] [facility] [address] [place] [address] PCP - General Medical Oncology 11/23/23 documented as of this encounter Additional Source Comments The information contained in this document represents components of the legal health record. It is not the complete legal health record.[facility]
--- OUTSIDE RECORDS SUMMARY | 2024-03-25 14:08 | XMS_ITS | Encounter Summary ---
Author Organization [facility] Address [phone] [place] [address] Care Team Providers Care Streetcar Starter Name Role Phone Quinton Callahan MD Primary Care Provider +1- [phone] Encounter Details Date Type Department Care Team (Late st Contact Info) Description 11/28/2023 Procedure Pass [facility] [address] [place] [address] Social History Tobacco Use Types Packs/Day Years [...] on filedocumented in this encounter Care Teams Streetcar Starter Relationship Specialty Start Date End Date Quinton Callahan MD [address] [facility] [address] [place] [address] PCP - General Medical Oncology 11/23/23 documented as of this encounter Additional Source Comments The information contained in this document represents components of the legal health record. It is not the complete legal health record.[facility]
--- OUTSIDE RECORDS SUMMARY | 2024-03-25 14:08 | XMS_ITS ---
Author Organization [facility] Address [address] [place] [address] Care Team Providers Care Senior Ui Ux Designer Name Role Phone Quinton Callahan MD Primary Care Provider Unavailab Quinton Alvarez Unavailable [phone] REASON FOR VISIT Patient presents today for EGD, NUGENT'S ESOPHAGUS Encounters Encounter Location Date Provider Diagnosis [facility] [address] [place] [address] 08/14/2023 Quinton Campos PLAN OF TREATMENT No Information
--- OUTSIDE RECORDS SUMMARY | 2024-03-25 14:08 | XMS_ITS | Encounter Summary ---
Author Organization [facility] Address [phone] [place] [address] Care Team Providers Care Lathe Turner Name Role Phone Quinton Callahan MD Primary Care Provider +1- [phone] Encounter Details Date Type Department Care Team (Late st Contact Info) Description 12/02/2023 Procedure Pass [facility] [address] [place] [address] Social History Tobacco Use Types Packs/Day Years [...] on filedocumented in this encounter Care Teams Lathe Turner Relationship Specialty Start Date End Date Quinton Callahan MD [address] [facility] [address] [place] [address] PCP - General Medical Oncology 11/23/23 documented as of this encounter Additional Source Comments The information contained in this document represents components of the legal health record. It is not the complete legal health record.[facility]
--- OUTSIDE RECORDS SUMMARY | 2024-03-25 14:08 | XMS_ITS | Continuity of Care Document ---
Author Organization [facility] [place] [facility] Address [address] [place] [id number] Care Team Providers Care Business Coordinator Name Role Phone [facility] [facility] OTHER KEON HEREDIA Primary Care Provider [phone] Assessment Encounter Date Assessment Date Assessment LastModified by Organization Details LastModified Time 02/25/2024 02/25/202402/17: wbc 8.40, hgb 11.2, hct 34.8, PLT 372, na 137, K 4.4, BUN/Cr 13/0.7 [email or web address] Not available 02/25/2024 09:44:31 Plan of Treatment Reminders Order Date Submit [...] Organization Details Recorded Time Blood in urine 32539301 Active 2023 SAMANTHA [address] , [address], [place], [address], [employer] 4 10:17:42 Benign prostatic hyperplasia 086861990 Active 2023 SAMANTHA [address] , [address], [place], [address], [facility] 4 10:17:40 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 2023 SAMANTHA [address] , [address], [place], [address], [facility] 4 10:18:23 Limb ischemia 8594095067617 5 Active [address], [address], [place], [address], [facility] 4 10:19:49 Peripheral arterial disease 998575266 Active [address], [address], [place], [address], [facility] 4 10:21:45 Chronic obstructive pulmonary disease 05832599 Active [address], [address], [place], [address], [facility] 4 10:22:55 Gastroesoph ageal reflux disease 714485242 Active [address], [address], [place], [address], [facility] 4 10:23:11 Smoker 68727238 Active [address], [address], [place], [address], [facility] 4 10:23:08 Essential hypertensio n 78018333 Active 2023 SAMANTHAMAURICE HENAO [address] [place] [address], [address], [place], [address], [facility] 4 10:25:41 Hyperlipide angela 81573267 Active 2023 Yvonne Belcher [address] [place] [address], [address], [place], [address], [facility] 4 10:49:02 Peripheral vascular disease 647219514 Active 2023 Yvonne Belcher [address] [facility] [facility], [address], [place], [address], [facility] 4 10:49:07 Thrombosis of splenic artery 8766861948029 9106 Active 2023 Yvonne Belcher [address], [address], [place], [address], [facility] 4 10:49:17 Left bundle branch block 21537590 Active 2023 Yvonne Belcher [address], [address], [place], [address], [employer] 4 10:49:21 Palmer's esophagus 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 Medical Equipment [...] Every Day Smoker Iveth Diaz MD [address] [facility], [address], [place], [address], [employer] 02/11/2024 18:13:51 Do You Have An Advance [...] Do You Have A Medical Power Of Clothing Room Supervisor? Yes Information not available 02/11/2024 What Was [...] Time SARS-COV-2 (COVID-19) vaccine, UNSPECIFIED 06/25/2020 completed Nikia Montes [facility] 02/11/2024 12:20:14 SARS-COV-2 (COVID-19) vaccine, UNSPECIFIED 07/27/2020 completed Nikia Montes [facility] 02/11/2024 12:20:24 Past Encounters Encounter ID Performer Location Encounter Start Date Encounter Closed Date Diagnosis/Indication Diagnosis SNOMED-CT Code Diagnosis ICD10 Code Diagnosis Note [id number] SAMANTHA DUNCANLEY AT [address] [address] 02/10/2024 10:12:50 02/11/2024 14:36:04 Limb ischemia 6154678609 9105 I99.8 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 s/p R SFA - bk popliteal bypass with vein (Rosalind, 07/2023)con tinue oxycodone 10 mg TID PRNgabapen tin 400 mg QID PRN (odd, would make scheduled) monitor pain controlPT/ OT eval and treatfollo w up with surgeon in 2 weeksshrin ker to be placed once healed- add abd and celeste daily due to bleeding Peripheral arterial insufficiency 3596744882 72353 I73.9 see aboveASA 81 mg dailyfollo wed by vascular Benign pro static hyperplasia 798857739 N40.0 continue flomax 0.8 mg qhsmonitor for outflow issues Gastroesop hageal reflux disease 749877226 K21.9 pantoprazo le 80 mg dailyconsi lia reduction if toleratesm onitor reflux Blood in urine 31030244 R31.9 had inpatientm onitor for clearing Chronic ob structive pulmonary disease 17246991 J44.9 albuterol PRNincruse dailywixel a BIDmonitor resp status Essential hypertension 18010139 I10 assumed as pt is on metoprolol 25 mg daily but no documented h[place] [facility] [place] [facility] need to keep Constipation 18450048 K5 9.00 add colace 100 mg BIDmonitor for improvemen t [id number] Iveth Diaz MD [place] AT [address] [address] 02/11/2024 15:43:03 02/12/2024 15:32:16 Limb ischemia 3989120223 9105 I99.8 Will change oxycodone to 10 [...] with surgeon as planned. Peripheral arterial insufficiency 4283924815 11186 I73.89 Z89.511 As above. Benign pro static hyperplasia 198072297 N40.0 No current sxs.Contin ue tamsulosin 0.8 mg qhsMonitor urinary function Gastroesop hageal reflux disease 940469362 K21.9 No current sxs.Contin ue pantoprazo le 80 mg qdMonitor GI sxs. Blood in urine 56428857 R31.0 Had one episode inpt.Now resolved.M onitor for recurrence . Chronic ob structive pulmonary disease 61067342 J43.8 Resp status good at this time.Liv nue incruse ellipta qd, Wixela 500/50 BID, duonebs BID prn and albuterol MDI 2 puffs q 4 hrs prn.Monito r resp status. Essential hypertension 41606676 I10 In good control since here (HTN is on PCP problem list)Liv nue metoprolol 25 mg qdMonitor BP and labs. Constipation 18806866 K5 9.03 Will add miralax 17 gms qd and continue colace 100 mg BIDUse prn meds if needed.Mon itor bowel function. [id number] Nam DUNCANLEY AT [address] [address] 02/15/2024 10:31:46 02/18/2024 15:29:05 Postoperative wound cellulitis 735550420 L76.82 exam concerning for cellulitis with increased foul smelling discharges tart doxycyclin e 100mg BID x 10 days, probiotic qd x 14 dayscheck CBC w/diff, BMP obtain x-ray R stump r/o osteomonit or for worsening sxs Amputated below knee 299 178940 Z89.519 As above. Limb ischemia 6925809848 9105 I99.8 continue oxycodone to 10 mg q 6 hrs scheduled x 7 days, then 10 mg q 8 hrs scheduled x 7 days then 5 mg q 8 hrs prn.Add oxycodone 10mg q24h prn breakthrou gh paincontin ue APAP 975 mg TID and increase gabapentin to 600 mg TID.Contin ue ASA 81 mg qdF/U with surgeon as planned. [id number] Nam DUNCANLEY AT [address] [address] 02/19/2024 07:36:20 02/21/2024 12:23:04 Postoperative wound cellulitis 926648676 L76.82 Continue doxycyclin e 100mg BID x 10 days, probiotic qd x 14 dayslabs and x-ray unremarkab lemonitor for resolution Limb ischemia 7446667846 9105 I99.8 continue oxycodone 10 mg q 8 hrs scheduled x 7 days then 5 mg q 8 hrs prn. oxycodone 10mg q24h prn breakthrou gh paincontin ue APAP 975 mg TID and gabapentin to 600 mg qam and afternoon, 900mg qhsContinu e ASA 81 mg qdconsult PMR management of painF/U with surgeon as planned. Amputated below knee 299 539742 Z89.519 As above. [id number] Nam DUNCANLEY AT [address] [address] 02/22/2024 09:19:49 02/25/2024 15:55:50 Postoperative wound cellulitis 363375892 L76.82 Continue doxycyclin e 100mg BID x 10 days, probiotic qd x 14 dayslabs and x-ray unremarkab lemonitor for resolution Limb ischemia 7855634281 9105 I99.8 continue oxycodone 10 mg q 8 hrs scheduled x 7 days then 5 mg q 8 hrs prn. oxycodone 10mg q24h prn breakthrou gh paincontin ue APAP 975 mg TID and gabapentin to 600 mg qam and afternoon, 900mg qhsContinu e ASA 81 mg qdconsult PMR management of painF/U with surgeon as planned. Amputated below knee 299 590891 Z89.519 As above. [id number] Nam CONKLIN AT [address] [address] 02/25/2024 07:30:39 02/26/2024 13:58:50 Postoperative wound cellulitis 330837394 L76.82 resolvedmo nitor for recurrence Limb ischemia 0043037610 9105 I99.8 continue oxycodone 10 mg q 8 hrs scheduled x 7 days then 5 mg q 8 hrs prn. oxycodone 10mg BID prn breakthrou gh paincontin ue APAP 975 mg TID, INcrease gabapentin to 900 mg qam and afternoon, 900mg qhsContinu e ASA 81 mg qdconsult PMR management of painF/U with surgeon as planned. Amputated below knee 299 902030 Z89.519 As above. Health Concerns Section Related Observation LastModified by Organization Detai ls LastModified Time None Recorded Concern Status LastModified by Organization Details LastModified Time None Recorded Payers Encounter Date Sequence Insurance Name Policy Number Policy Matute Covered Member ID Matute Member ID Guarantor Name 02/25/2024 1 [employer] (MEDICARE REPLACEMENT PPO) [id number] Sanchez Encinas [id number] Zan Encinas Notes Date Note Type Note Provider Name and Address Organization Details Recorded Time 02/25/2024 text/html This is a 63 yo man who is being seen for acute rounding visit Patient doing well todayPain controlled with oxycodone. Gabapentin increased last week at f/u vascular with IMprovement. Reported increased pain over the weekend with 1x dose oxycodone 10mg.Actively participating in therapyself-kizzy bustamante around unit in w/cPMR consulted Patient seen sitting in room in bed in [facility]. He tells me for the most part neuropathic pain improved with increase in gabapentin but still with residual pain. Tolerating reduction in scheduled oxycodone dose. Intermittently needs PRN due to pain exacerbated with therapy. He denies constipation. Doing well overall His PMH includes HTN, COPD, splenic vein thrombosis (1999), GERD w/ Palmer's, BPH, current smoker and PAD s/p R SFA stent (2021) and recent R SFA-Bkpop bypass w/ vein (07/2023, Dr Bimal Knott), p/w ulcer of R great toe f/t/h occlusion of bypass now s/p R [employer]AT bypass w ePTFE w/ patch angioplasties (Ratna 12/01). [facility] is [address] [facility], [address], [place], [address], [facility] 02/25/2024 11:08:05
--- OUTSIDE RECORDS SUMMARY | 2024-03-25 14:08 | XMS_ITS | Encounter Summary ---
Author Organization [facility] Address [phone] [place] [address] Care Team Providers Care Pit Crane Operator Name Role Phone Quinton Callahan MD Primary Care Provider [phone] Encounter Details Date Type Department Care Team (Late st Contact Info) Description 11/28/2023 Procedure Pass [facility] [address] [place] [address] Social History Tobacco Use Types Packs/Day Years [...] on filedocumented in this encounter Care Teams Pit Crane Operator Relationship Specialty Start Date End Date Quinton Callahan MD [address] [facility] [address] [facility] [address] [place] [address] PCP - General Medical Oncology 11/23/23 documented as of this encounter Additional Source Comments The information contained in this document represents components of the legal health record. It is not the complete legal health record.[facility]
--- OUTSIDE RECORDS SUMMARY | 2024-03-25 14:08 | XMS_ITS ---
Author Organization Quinton Callahan III, MD Address [address] [place] [address] Care Team Providers Care Braided Band Assembler Name Role Phone Quinton Callahan Primary Care Provider REASON FOR VISIT Message Social History Sex Assigned At : Social History Observation Description Sex Assigned At Male Encounters Encounter Location Date Provider Diagnosis Quinton Callahan III, MD [address] [place] [address] [place] [address] 02/12/2024 Quinton Callahan Plan Of Treatment Next Appt Details Provider Name:Quinton Callahan, 10/15/2024 11:00:00 AM, [address] [place] [address] K[address]YN JURADO, [place], [address], Progress Notes * Ana ENCINAShDOB:1960 (63 yo M)Acc No.[id number]:02/12/2024 Patient:?Zan ENCINAS :1960???Age:63 Y???Sex:Male Address:[address] [facility] [address], [place], [address] * true * Date:? Generated for Montanai robby/Jai/eTransmitting on:?03/25/2024 02:07 PM EST
--- OUTSIDE RECORDS SUMMARY | 2024-03-25 14:09 | XMS_ITS ---
Author Organization [facility] Address [address] [place] [address] Care Team Providers Care Vice President Tax Name Role Phone Quinton Callahan MD Primary Care Provider Unavailab Quinton Alvarez Unavailable [phone] REASON FOR VISIT no show Encounters Encounter Location Date Provider Diagnosis [facility] [address] [place] [address] 08/14/2023 Quinton Campos PLAN OF TREATMENT No Information
--- OUTSIDE RECORDS SUMMARY | 2024-03-25 14:09 | XMS_ITS | Clinical Summary ---
Author Organization [facility] Address [phone] [facility] [place] [address] Care Team Providers Care Supply Chain Procurement Manager Name Role Phone Quinton Callahan MD Primary Care Provider [phone] Allergies No known active allergies Medications Medication Sig Dispensed Refills Start Date End Date Status oxyCODONE-acetaminoph en (PERCOCET) 5-325 mg per tablet Take 1 tablet by mouth 3 (three) times a day as needed. 11/26/2023 Active gabapentin (NEURONTIN) 400 MG capsule Take 1 capsule by mouth 4 (four) times a day. 10/31/2023 Active tamsulosin (FLOMAX) 0.4 mg Cap Take 0.8 mg by mouth daily. Active nicotine (NICODERM CQ) 21 mg/[address] 1 patch onto the skin daily. 10/08/2023 Active BREO ELLIPTA 200-25 mcg/dose inhaler Inhale 1 puff into the lungs daily. Active atorvastatin (LIPITOR) 10 MG tablet Take 1 tablet by mouth daily. Active pantoprazole (PROTONIX) 40 MG tablet Take 2 tablets by mouth daily. Active albuterol 90 mcg/actuation inhaler Inhale 2 puffs into the lungs every 4 (four) hours as needed. Active multivitamin (MVI) Take 1 each by mouth daily. Active ginseng 250 mg Cap Take 500 mg by mouth daily. Active varenicline (CHANTIX AJ) 0.5 mg (11)- 1 mg (42) tablet Give with meals and with a full glass of water. 53 tablet 12/08/2023 Active acetaminophen (TYLENOL) 325 mg tablet Take 2 tablets (650 mg total) by mouth 4 (four) times a day. 12/08/2023 Active aspirin 81 MG EC tablet Take 1 tablet (81 mg total) by mouth daily. 90 tablet 2 12/09/2023 Active metoprolol succinate (TOPROL-XL) 25 MG 24 hr tablet Take 1 tablet (25 mg total) by mouth daily. 30 tablet 1 12/09/2023 Active oxyCODONE 5 MG immediate release tablet Take 1-2 tablets (5-10 mg total) by mouth every 4 (four) hours as needed. Partial fill ok 15 tablet 12/08/2023 Active apixaban (ELIQUIS) 5 mg tablet Take 1 tablet (5 mg total) by mouth 2 (two) times a day. 30 tablet 1 12/08/2023 Active Active Problems Problem Noted Date Diagnosed Date Ischemia of right lower extremity 11/27/2023 Encounters Date Type Department Care Team Description 02/18/2024 9:37 AM EST - 02/18/2024 11:59 PM EST Hospital Encounter [facility] Laboratory [address] [place] [address] Garrett Fletcher MD Discharge Disposition: Home or Self Care 02/11/2024 6:59 AM EST - 02/11/2024 11:59 PM EST Hospital Encounter [facility] [address] [place] [address] Garrett Fletcher MD Discharge Disposition: Home or Self Care 02/11/2024 Transcribe Orders [facility] Specimen Processing [address] [place] [address] Garrett Fletcher MD Atrial fibrillation, unspecified type (Primary Dx); BKA stump complication; Benign prostatic hyperplasia, unspecified whether lower urinary tract symptoms present from Last 3 Months Immunizations Name Administration Dates Next Due Influenza High-Dose Trivalent Preservative Free IM 12/08/2023 Social History Tobacco Use Types Packs/Day Years [...] Orientation Straight 11/23/2023 11 :14 AM EDT Last Filed Vital Signs Vital Sign Reading Time Taken Comments Blood Pressure 119/60 12/08/2023 3:33 PM EDT Pulse 77 12/08/2023 3:33 PM EDT Temperature 36.9 ??C (98.5 ??F) 12/08/2023 3:33 PM ED T Respiratory Rate 16 12/08/2023 3:33 PM EDT Oxygen Saturation 98% 12/08/2023 3:33 PM EDT Inhaled Oxygen Concentration - - Weight 93.6 kg (206 lb 6.4 oz) 12/08/2023 6:00 A M EDT Height 182.9 cm (6') 12/02/2023 11:41 AM EDT Body Mass Index 27.99 12/02/2023 11:41 AM EDT Plan of Treatment Health Maintenance Due Date Last Done Comments Adult Td,Tdap Booster 1958 DEPRESSION SCREENING 1970 SMOKING Hx and SMOKELESS TOBACCO SCREENING 1971 HEPATITIS B SCREENING 1976 HEPATITIS C SCREENING 1976 COLOGUARD 2003 COLONOSCOPY 2003 COLORECTAL CANCER SCREENING 2003 FIT TEST 2003 FOBT 2003 SIGMOIDOSCOPY 2003 VIRTUAL COLONOSCOPY 2003 PNEUMOCOCCAL VACCINES (50+ years) (1 of 1 - PCV) 2008 ZOSTER VACCINES (1 of 2) 2008 RSV VACCINE (1 - Risk 60-74 years 1-dose series) 2018 COVID-19 VACCINE ( season) 2023 07/27/2020, 06/25/2020 LIPID PANEL 11/27/2024 11/28/2023 CREATININE LEVEL 02/17/2025 02/18/2024, , 12/06/2023, Additional history exists SCREENING FOR DIABETES 02/17/2027 02/18/2024, 2023 INFLUENZA VACCINE Completed 12/08/2023, 11/17/2015 HEPATITIS A VACCINES Aged Out No long er eligible based on patient's age to complete this topic HEPATITIS B VACCINES Aged Out No long er eligible based on patient's age to complete this topic HIB VACCINES Aged Out No longer eligi ble based on patient's age to complete this topic MENINGOCOCCAL VACCINES (ACWY) Aged Out No longer eligible based on patient's age to complete this topic Medical Devices Implanted Type Area Industrial Recruiter Device Identifier Shelf Expiration Date Model / Serial / Lot Graft Vascular 6.0mmx60 70cm Propaten Heparin Carmeda Bioactive Surface Thin Wall Removable Ring Stretch - [id number] Implanted:Qty: 1 on 12/02/2023 by Percy Segundo MD at [facility] STANDARD Right: Vein [employer] [id number] 08/13/2026 [id number] / [id number] / Metal Clip Celd Left Groin 10/2023 Stent Right Femoral Artery Patch Pericardium 2cm 9cm Decellularized Bovine [employer] - [id number] Implanted:Qty: 1 on 12/02/2023 by Percy Segundo MD at [facility] Right: Vein [employer] [id number] 03/24/2025 [id number] / [id number] Procedures Procedure Name Priority Date/Time Associated Diagnosis Comments CBC AND DIFFERENTIAL Routine 02/18/2024 8:01 AM EST Aftercare for amputation stump BASIC METABOLIC PANEL Routine 02/18/2024 8:01 AM EST Aftercare for amputation stump CBC AND DIFFERENTIAL Routine 02/11/2024 5:10 AM EST Atrial fibrillation, unspecified type BKA stump complication Benign prostatic hyperplasia, unspecified whether lower urinary tract symptoms present COMPREHENSIVE METABOLIC PANEL Routine 02/11/2024 5:10 AM EST Atrial fibrillation, unspecified type BKA stump complication Benign prostatic hyperplasia, unspecified whether lower urinary tract symptoms present PATCH MONITOR UP TO 15 DAYS Routine 01/08/2024 9:50 AM EST Paroxysmal atrial fibrillation LIPID PANEL Routine 11/28/2023 1:21 AM EDT from Last 3 Months or Most Recently Relevant to Health Maintenance Results * (ABNORMAL) CBC and differential (02/18/2024 8:01 AM EST) Only the most recent of2 resultswithin the time period is included. WBC 8.40 4.00 - 11.00 K/uL [facility] RBC 3.83(L) 4.50 - 5.90 M/uL [facility] HGB 11.2(L) 13.5 - 17.5 g/dL [facility] HCT 34.8(L) 41.0 - 53.0 % [facility] PLT 372 150 - 450 K/uL [facility] MCV 90.9 80.0 - 100.0 fL [facility] MCH 29.2 27.0 - 31.0 pg [facility] MCHC 32.2 32.0 - 36.0 g/dL [facility] RDW 13.8 11.5 - 14.5 % [facility] MPV 9.4 8.4 - 12.0 fL [facility] NRBC 0.00 0.00 /100 WBCs [facility] ABSOLUTE NRBC 0.00 0.00 K/uL [facility] DIFF METHOD Auto [facility] NEUTS 65.7 48.0 - 76.0 % [facility] LYMPHS 19.0 18.0 - 41.0 % [facility] MONOS 10.4 4.0 - 11.0 % [facility] EOS 3.3 0.0 - 5.0 % [facility] BASOS 1.0 0.0 - 1.5 % [facility] Granulocytes, immature (%) 0.6 0.0 - 0.9 % [facility] ABSOLUTE NEUTS 5.52 1.92 - 7.60 K/uL [facility] ABSOLUTE LYMPHS 1.60 0.72 - 4.10 K/uL [facility] ABSOLUTE MONOS 0.87 0.16 - 1.10 K/uL [facility] ABSOLUTE EOS 0.28 0.00 - 0.50 K/uL [facility] ABSOLUTE BASOS 0.08 0.00 - 0.15 K/uL [facility] Granulocytes, immature 0.05 0.00 - 0.09 K/uL [facility] Blood 02/18/2024 8:01 AM EST 02/18/2024 10:00 AM EST Garrett Fletcher MD LAB BLOOD ORDERABLES Performing Organization Address City/State/[facility] Co de Phone Number [address] [address] * (ABNORMAL) Basic metabolic panel (02/18/2024 8:01 AM EST) SODIUM 137 133 - 146 mmol/L [facility] CHLORIDE 102 96 - 108 mmol/L [facility] POTASSIUM 4.4 3.3 - 5.1 mmol/L [facility] CO2 25 21 - 35 mmol/L [facility] BUN 13 6 - 19 mg/dL [facility] CREATININE 0.70 0.5 - 1.5 mg/dL [facility] GLUCOSE 101(H) 70 - 99 mg/dL [facility] CALCIUM 9.7 8.4 - 10.3 mg/dL [facility] EGFR 102 >59 mL/min/1.7 3m2 [facility] Comment:Estimated glomerular filtration rate calculated using the CKD-EPI refit equation. ANION GAP 14 10 - 20 mmol/L [facility] Blood 02/18/2024 8:01 AM EST 02/18/2024 10:00 AM EST Garrett Fletcher MD LAB BLOOD ORDERABLES [address] [address] * (ABNORMAL) Comprehensive metabolic panel (02/11/2024 5:10 AM EST) SODIUM 139 133 - 146 mmol/L [facility] POTASSIUM 4.4 3.3 - 5.1 mmol/L [facility] CHLORIDE 103 96 - 108 mmol/L [facility] CO2 25 21 - 35 mmol/L [facility] BUN 11 6 - 19 mg/dL [facility] CREATININE 0.60 0.5 - 1.5 mg/dL [facility] GLUCOSE 105(H) 70 - 99 mg/dL [facility] ALBUMIN 3.2(L) 3.9 - 4.8 g/dL [facility] TOTAL PROTEIN 5.7(L) 6.5 - 8.0 g/dL [facility] CALCIUM 9.3 8.4 - 10.3 mg/dL [facility] ALKALINE PHOSPHATASE 161(H) 39 - 117 U/L [facility] TOTAL BILIRUBIN 0.7 0.0 - 1.2 mg/dL [facility] AST 36 0 - 37 U/L [facility] ALT 60(H) 0 - 40 U/L [facility] GLOBULIN 2.5 1 - 4.8 g/dL [facility] EGFR 107 >59 mL/min/1.7 3m2 [facility] Comment:Estimated glomerular filtration rate calculated using the CKD-EPI refit equation. ANION GAP 15 10 - 20 mmol/L [facility] Blood 02/11/2024 5:10 AM EST 02/11/2024 7:12 AM EST Garrett Fletcher MD LAB BLOOD ORDERABLES [address] [address] * Patch Monitor up to 15 days (01/08/2024 9:50 AM EST) Narrative SYSTEMGENERATED, DOCUMENTATION - 01/15/2024 5:07 PM EST Preliminary Findings Patient had a min HR of 43 bpm, max HR of 184 bpm, and avg HR of 64 bpm. Predominant underlying rhythm was Sinus Rhythm. Bundle Branch Block/IVCD was present. 1 run of Ventricular Tachycardia occurred lasting 6 beats with a max rate of 158 bpm (avg 155 bpm). 99 Supraventricular Tachycardia runs occurred, the run with the fastest interval lasting 6 beats with a max rate of 184 bpm, the longest lasting 34.8 secs with an avg rate of 108 bpm. Isolated SVEs were frequent (23.2%, [id number]), SVE Couplets were rare (<1.0%, 1242), and SVE Triplets were rare (<1.0%, 460). Isolated VEs were occasional (1.1%, 86713), and no VE Couplets or VE Triplets were present. Final Interpretation 14 days of continuous monitoring, Baseline rhythm: sinus, Frequent PACs (23.2% burden), Rare PVCs, One NSVT run, 99 brief atrial runs. Patient triggered recordings: I personally reviewed this entire study and agree with the findings. Nickolas Rios MD CV CARDIAC SERVI MARYAM ORDERABLES * Lipid panel (11/28/2023 1:21 AM EDT) CHOLESTEROL 125 <200 mg/dL [facility] TRIGLYCERIDES 60 35 - 150 mg/dL [facility] HDL 60 40 - 80 mg/dL [facility] CALCULATED LDL 53 50 - 129 mg/dL [facility] VLDL 12 <31 mg/dL [facility] CARDIAC RISK RATIO 2.1 0.0 - 4.0 [facility] Blood 11/28/2023 1:21 AM EDT 11/28/2023 1:35 AM EDT Ayla Owens PA-C LAB BLOOD ORDERAB LES [facility] [address] [place] [address] from Last 3 Months or Most Recently Relevant to Health Maintenance Advance Directives * Full Code (Latest Code Status on File) Date Activated Date Inactivated Comments 11/27/2023 4:16 PM Question Answer Comments Code Status Confirmed With: Patient Care Teams Supply Chain Procurement Manager Relationship Specialty Start Date End Date Quintno Callahan MD [address] [place] [address] Drive [address] [place] [address] PCP - General Medical Oncology 11/23/23 Additional Source Comments The information contained in this document represents components of the legal health record. It is not the complete legal health record.[facility]
--- OUTSIDE RECORDS SUMMARY | 2024-03-25 14:09 | XMS_ITS | Patient Health Record ---
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) Active confirmed [id number] Problem Gastroesophageal reflux disease without esophagitis (K21.9) Active confirmed [id number] Encounters Encounter Location Date Provider Diagnosis [facility] [address] [place] [address] 08/14/2023 Quinton Campos [facility] [address] [place] [address] 08/14/2023 Quinton Campos PLAN OF TREATMENT Future Test Test Name Order Date UPPER GI ENDOSCOPY 03/19/2013 UPPER GI ENDOSCOPY 06/11/2019 COLONOSCOPY 06/11/2019 Insurance Providers Payer Name Payer Address Payer Phone Subscriber Number Group Number Insured Name Patient Relationship to Insured Coverage Start Date Coverage End Date MEDICARE OF [place] [address] [place] [address] [id number] JUAN FRANCISCO HOWELL Self - patient is [...]
--- OUTSIDE RECORDS SUMMARY | 2024-03-25 14:09 | XMS_ITS | Data Portability ---
Author Organization [facility], Main Office Address [address] [facility], [facility] [address] [place] [address] Care Team Providers Care External Relations Director Name Role Phone [facility] OTHER KEON HEREDIA Primary Care Provider Assessment Encounter Date Assessment Date Assessment LastModified by Organization Details LastModified Time 02/19/2024 02/19/202402/17: wbc 8.40, hgb 11.2, hct 34.8, PLT 372, na 137, K 4.4, BUN/Cr 13/0.7 [email or web address] Not available 02/19/2024 09:55:44 02/22/2024 02/22/202402/17: wbc 8.40, hgb 11.2, hct 34.8, PLT 372, na 137, K 4.4, BUN/Cr 13/0.7 [email or web address] Not available 02/22/2024 11:15:54 02/25/2024 02/25/202402/17: wbc 8.40, hgb 11.2, hct [...] Organization Details Recorded Time Blood in urine 42627061 Active [address], [address], [place], [address], [facility] 4 10:17:42 Benign prostatic hyperplasia 673958111 Active [address], [address], [place], [address], [facility] 4 10:17:40 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 [address], [address], [place], [address], [facility] 4 10:18:23 Limb ischemia 9130944207409 5 Active [address], [address], [place], [address], [facility] 4 10:19:49 Peripheral arterial disease 037864699 Active [address], [address], [place], [address], [facility] 4 10:21:45 Chronic obstructive pulmonary disease 93604928 Active [address], [address], [place], [address], [facility] 4 10:22:55 Gastroesoph ageal reflux disease 231159408 Active [address], [address], [place], [address], [facility] 4 10:23:11 Smoker 76854972 Active [address], [address], [place], [address], [facility] 4 10:23:08 Essential hypertensio n 74270581 Active [address], [address], [place], [address], [facility] 4 10:25:41 Hyperlipide angela 00155101 Active 2023 Yvonne Belcher [address] [place] [address], [address], [place], [address], [facility] 4 10:49:02 Peripheral vascular disease 599849609 Active 2023 Yvonne Belcher [address] [facility], [address], [place], [address], [facility] 4 10:49:07 Thrombosis of splenic artery 1264988531461 9106 Active 2023 Yvonne Belcher [address] [facility], [address], [place], [address], [facility] 4 10:49:17 Left bundle branch block 29434848 Active 2023 Yvonne Belcher [address] [place] [address], [address], [place], [address], [facility] 4 10:49:21 Palmer's esophagus 759021932 Active 2023 Yvonne Belcher [address] [place] [address], [facility] [address], [place], [address], [facility] 4 10:50:44 Problem Notes None recorded. Medical [...] Current Every Day Smoker Iveth Diaz MD [address] [place] [address], [address], [place], [address], [facility] 02/11/2024 18:13:51 Do You Have An [...] Do You Have A Medical Power Of Logging Assistant? Yes Information not available 02/11/2024 What Was [...] (COVID-19) vaccine, UNSPECIFIED 06/25/2020 completed Nikia Montes [facility] 02/11/2024 12:20:14 SARS-COV-2 (COVID-19) vaccine, UNSPECIFIED 07/27/2020 completed Nikia Montes [facility] 02/11/2024 12:20:24 Past Encounters Encounter ID Performer Location Encounter Start Date Encounter Closed Date Diagnosis/Indication Diagnosis SNOMED-CT Code Diagnosis ICD10 Code Diagnosis Note [id number] SAMANTHA CONKLIN AT [address] [address] 02/10/2024 10:12:50 02/11/2024 14:36:04 Limb ischemia 7196361224 9105 I99.8 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 s/p R SFA - bk popliteal bypass with vein ([place], 07/2023)con tinue oxycodone 10 mg TID PRNgabapen tin 400 mg QID PRN (odd, would make scheduled) monitor pain controlPT/ OT eval and treatfollo w up with surgeon in 2 weeksshrin ker to be placed once healed- add abd and celeste daily due to bleeding Peripheral arterial insufficiency 6712437165 92502 I73.9 see aboveASA 81 mg dailyfollo wed by vascular Benign pro static hyperplasia 964093776 N40.0 continue flomax 0.8 mg qhsmonitor for outflow issues Gastroesop hageal reflux disease 542996744 K21.9 pantoprazo le 80 mg dailyconsi lia reduction if toleratesm onitor reflux Blood in urine 82218846 R31.9 had inpatientm onitor for clearing Chronic ob structive pulmonary disease 65501546 J44.9 albuterol PRNincruse dailywixel a BIDmonitor resp status Essential hypertension 35154350 I10 assumed as pt is on metoprolol 25 mg daily but no documented [facility] Constipation 09002285 K5 9.00 add colace 100 mg BIDmonitor for improvemen t [id number] Iveth Diaz MD [facility] AT [address] [address] 02/11/2024 15:43:03 02/12/2024 15:32:16 Limb ischemia 0687790711 9105 I99.8 Will change oxycodone to 10 [...] with surgeon as planned. Peripheral arterial insufficiency 6362168426 07335 I73.89 Z89.511 As above. Benign pro static hyperplasia 386231130 N40.0 No current sxs.Contin ue tamsulosin 0.8 mg qhsMonitor urinary function Gastroesop hageal reflux disease 136107260 K21.9 No current sxs.Contin ue pantoprazo le 80 mg qdMonitor GI sxs. Blood in urine 64813046 R31.0 Had one episode inpt.Now resolved.M onitor for recurrence . Chronic ob structive pulmonary disease 15683011 J43.8 Resp status good at this time.Liv nue incruse ellipta qd, Wixela 500/50 BID, duonebs BID prn and albuterol MDI 2 puffs q 4 hrs prn.Monito r resp status. Essential hypertension 48330108 I10 In good control since here (HTN is on PCP problem list)Liv nue metoprolol 25 mg qdMonitor BP and labs. Constipation 77638772 K5 9.03 Will add miralax 17 gms qd and continue colace 100 mg BIDUse prn meds if needed.Mon itor bowel function. [id number] Nam CONK[facility] AT [address] [address] 02/15/2024 10:31:46 02/18/2024 15:29:05 Postoperative wound cellulitis 902344448 L76.82 exam concerning for cellulitis with increased foul smelling discharges tart doxycyclin e 100mg BID x 10 days, probiotic qd x 14 dayscheck CBC w/diff, BMP ll obtain x-ray R stump r/o osteomonit or for worsening sxs Amputated below knee 299 331470 Z89.519 As above. Limb ischemia 5448985441 9105 I99.8 continue oxycodone to 10 mg q 6 hrs scheduled x 7 days, then 10 mg q 8 hrs scheduled x 7 days then 5 mg q 8 hrs prn.Add oxycodone 10mg q24h prn breakthrou gh paincontin ue APAP 975 mg TID and increase gabapentin to 600 mg TID.Contin ue ASA 81 mg qdF/U with surgeon as planned. [id number] Nam CONKLIN AT [address] [address] 02/19/2024 07:36:20 02/21/2024 12:23:04 Postoperative wound cellulitis 250208979 L76.82 Continue doxycyclin e 100mg BID x 10 days, probiotic qd x 14 dayslabs and x-ray unremarkab lemonitor for resolution Limb ischemia 8614260126 9105 I99.8 continue oxycodone 10 mg q 8 hrs scheduled x 7 days then 5 mg q 8 hrs prn. oxycodone 10mg q24h prn breakthrou gh paincontin ue APAP 975 mg TID and gabapentin to 600 mg qam and afternoon, 900mg qhsContinu e ASA 81 mg qdconsult PMR management of painF/U with surgeon as planned. Amputated below knee 299 361179 Z89.519 As above. [id number] SanchezGayCooper CONKLIN AT [address] [address] 02/22/2024 09:19:49 02/25/2024 15:55:50 Postoperative wound cellulitis 643912718 L76.82 Continue doxycyclin e 100mg BID x 10 days, probiotic qd x 14 dayslabs and x-ray unremarkab lemonitor for resolution Limb ischemia 3945245938 9105 I99.8 continue oxycodone 10 mg q 8 hrs scheduled x 7 days then 5 mg q 8 hrs prn. oxycodone 10mg q24h prn breakthrou gh paincontin ue APAP 975 mg TID and gabapentin to 600 mg qam and afternoon, 900mg qhsContinu e ASA 81 mg qdconsult PMR management of painF/U with surgeon as planned. Amputated below knee 299 435463 Z89.519 As above. [id number] Nam CONKLIN AT [address] [address] 02/25/2024 07:30:39 02/26/2024 13:58:50 Postoperative wound cellulitis 156908845 L76.82 resolvedmo nitor for recurrence Limb ischemia 1375932826 9105 I99.8 continue oxycodone 10 mg q 8 hrs scheduled x 7 days then 5 mg q 8 hrs prn. oxycodone 10mg BID prn breakthrou gh paincontin ue APAP 975 mg TID, INcrease gabapentin to 900 mg qam and afternoon, 900mg qhsContinu e ASA 81 mg qdconsult PMR management of painF/U with surgeon as planned. Amputated below knee 299 279075 Z89.519 As above. [id number] HallieCooper CON[facility] AT [address] [address] 02/28/2024 08:43:00 02/29/2024 10:22:21 Limb ischemia 3136995047 9105 I99.8 continue oxycodone 10 mg q 8 hrs scheduled x 7 days then 5 mg q 8 hrs prn. oxycodone 10mg BID prn breakthrou gh paincontin ue APAP 975 mg TID, gabapentin to 900 mg TIDContinu e ASA 81 mg qdconsult PMR management of painF/U with surgeon as planned. Amputated below knee 299 407097 Z89.519 As above. [id number] MD RUBIN Enciso AT [address] [address] 03/03/2024 11:24:29 03/03/2024 11:33:59 Limb ischemia 5921287867 9105 I99.8 s/p amputation cleared for discharge with services and ortho f/u in placedisch arged on oxycodone 5 mg q 8 prn pain #23 tablets given at time of dischargep atient will need appointmen t with PCP for f/u discussed with nursing to schedule prior to discharge Amputated below knee 299 055905 Z89.519 As above. Health Concerns Section Related Observation LastModified by Organization Detai ls LastModified Time None Recorded Concern Status LastModified by Organization Details LastModified Time None Recorded Advance Directives Directive Y: Payers Encounter Date Sequence Insurance Name Policy Number Policy Matute Covered Member ID Matute Member ID Guarantor Name 02/19/2024 1 [employer] (MEDICARE REPLACEMENT PPO) [id number] 02/22/2024 1 [employer] (MEDICARE REPLACEMENT PPO) [id number] [facility] [id number] [facility] 02/25/2024 1 [employer] (MEDICARE REPLACEMENT PPO) [id number] Zan Encinas [id number] [facility] 02/28/2024 1 [employer] (MEDICARE REPLACEMENT PPO) [id number] Zan Encinas [id number] [facility] 03/03/2024 1 [employer] (MEDICARE REPLACEMENT PPO) [id number] Zan Schulerenter [id number] [facility] Notes Date Note Type Note Provider Name and Address Organization Details Recorded Time 02/19/2024 text/html This is a 63 yo man who is being seen for acute rounding visit here for rehab after a hospitalization for a right BKA due to a non-healing RLE wound.He had been in and out of the hospital for wound infections and revascularization procedures. But continued with severe pain, so BKE was recommended.He was taken to the OR on 02/[address] Knott. He was started on doxycycline on Sunday for concerns for infection secondary to foul smelling increased draining and sxs concerning for cellulitis. He had x-ray r/o osteo that was unremarkable. He went for f/u vascular yesterday, 11 lazarus removed, all sutures removed. The provider recommended applying xeroform, 4x4, and kerlix to the RBKA wound. They also increased Gabapentin to 600mg AM/AFT, and 900 mg QHS. Patient tells me they think pain is more phantom in nature. Patient tells me pain better today then sunday. He does have breakthrough pain at night which disrupts his sleep. Reviewed that he has prn dose q24h prn he can use. 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 [facility] [address] [facility], [address], [place], [address], [employer] 02/22/2024 11:16:10 02/25/2024 text/html This is a 63 yo man who is being seen for acute rounding visit Patient doing well todayPain controlled with oxycodone. Gabapentin increased last week at f/u vascular with IMprovement. Reported increased pain over the weekend with 1x dose oxycodone 10mg.Actively participating in therapyself-propelling around unit in w/cPMR consulted Patient seen sitting in room [facility]. 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 [facility] [address] [facility], [address], [place], [address], [employer] [facility] 02/25/2024 11:08:05 02/28/2024 text/html This is a 63 yo man who is being seen for acute rounding visit Patient had f/u vascular on 02/25recs to continue with daily dressing changes noted with small open area on medial aspectNo hot roll inspector or prosthesis yet. The site needs to be completely healed first. Can increase gabapentin 900mg TID and decrease oxycodone.f/u 03/11/24 Patient seen lying in bed with spar finisher doing dressing change. 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 [facility] [address] [facility], [address], [place], [address], [facility] [id number] 02/28/2024 12:14:07 03/03/2024 text/html Patient is a 63 yo [...] f/u in place Garrett Fletcher MD [address] [facility], [address], [place], [address], [facility] 03/03/2024 11:33:58
--- OUTSIDE RECORDS SUMMARY | 2024-03-25 14:09 | XMS_ITS ---
Author Organization [facility] Address Unknown Medications Medication Dose Frequency Directions Start Date End Duc e Tamsulosin HCl Capsule 0.8 mg Give 0.8 mg by mouth at bedtime for benign prostatic hyperplasia give (2) 0.4 mg tabs =0.8mg 02/09/2024 Centrum Silver Tablet 1 {tbl} 24 h Give 1 tablet by summer th one time a day for vitamin supplement 02/09/2024 Atorvastatin Calcium Oral Tablet 10 MG 1 {tbl} Give 1 tablet by summer th at bedtime for lipids 02/09/2024 Aspirin EC Tablet Delayed Release 81 MG 1 {tbl} 24 h Give 1 tablet by summer th one time a day for anticoag 02/09/2024 Albuterol Sulfate HFA Inhalation Aerosol Solution 108 (90 Base) MCG/ACT 2 2 puff inhale orally every 4 hours as needed for sob/wheeze 02/08/2024 Wixela Inhub Inhalation Aerosol Powder Breath Activated 500-50 MCG/ACT 1 12 h 1 inhalation inhale orally every 12 hours for copd Rinse mouth with water and spit back into cup after use 02/09/2024 Incruse Ellipta Inhalation Aerosol Powder Breath Activated 62.5 MCG/ACT 1 24 h 1 inhalation inhale orally one time a day for copd use actuation device 02/09/2024 Metoprolol Succinate ER Tablet Extended Release 24 Hour 25 MG 1 {tbl} 24 h Give 1 tablet by summer th one time a day for htn/pad 02/09/2024 Ipratropium-Albutero l Inhalation Solution 0.5-2.5 (3) MG/3ML 3 mL 3 ml inhale orally every 12 hours as needed for wheeze 02/08/2024 Milk of Magnesia Suspension 400 MG/5ML 30 mL Give 30 ml by mouth as needed for Constipation give at bedtime if no BM in 3 days 02/08/2024 Saline Laxative Enema 1 Insert 1 unit rectal ly as needed for Constipation if no result from Dulcolax within 2 hours. If no results from Saline laxative enema, call MD/advanced practice provider (MARY) for further orders. 02/08/2024 MiraLax Powder 17 Give 17 gram by mouth as needed for Constipation in 4 to 8 ounces of fluid-if resident has not had a bowel movement in past 72 hours. 02/08/2024 Dulcolax Suppository 10 MG 1 Insert 1 suppository rectally as needed for Constipation if no result from MOM Miralax by next shift 02/08/[address] 20 MG CAPSULE 1 {Capsule} 24 h Give 1 capsule by mo uth one time a day for gerd 02/10/2024 Colace Capsule 100 MG 1 {Capsule} 12 h Give 1 capsule by mo uth two times a day for Constipation 02/11/2024 MiraLax Oral Packet 17 GM 17 24 h Give 17 gram by mout h one time a day for Constipation 02/12/2024 oxyCODONE HCl Oral Tablet 5 MG 1 {tbl} Give 1 tablet by summer th every 8 hours as needed for Pain 02/26/2024 02/26/2024 Acetaminophen Oral Tablet 325 MG 3 {tbl} 8 h Give 3 tablet by summer th three times a day for Pain management 02/12/2024 oxyCODONE HCl Oral Tablet 5 MG 10 mg 8 h Give 10 mg by mouth every 8 hours for Pain management 02/19/2024 02/25/2024 Naloxone HCl Liquid 4 MG/0.1ML 0.4 mg/mL 0.4 mg/ml Alternatin g nostrils every 2 minutes as needed for sign of opioid overdose Maybe repeated every two (2)to three(3)minutes for unresponsiveness or difficulty breathing,until individual is breathing (respiratory rate greater than 10)Initiate emergency medical response protocol (e.g.,[id number])and transfer to the hospital 02/13/2024 oxyCODONE HCl Oral Tablet 10 MG 1 {tbl} Give 1 tablet by summer th every 24 hours as needed for increased pain 02/15/2024 02/25/2024 Doxycycline Monohydrate Oral Tablet 100 mg 12 h Give 100 mg by mouth two times a day for wound infection for 10 Days 02/16/2024 02/26/2024 Probiotic Oral Capsule 250 MG 1 {Capsule} 24 h Give 1 capsule by mo uth one time a day for probiotic for 14 Days 02/15/2024 02/29/2024 Gabapentin Capsule 300 MG 3 {Capsule} 24 h Give 3 capsule by [facility] one time a day for pain 02/19/2024 02/26/2024 Gabapentin Tablet 600 MG 1 {tbl} 24 h Give 1 tablet by [facility] one time a day for pain 02/19/2024 02/26/2024 Gabapentin Tablet 600 MG 1 {tbl} 24 h Give 1 tablet by [facility] one time a day for pain 02/19/2024 02/26/2024 GABAdone Oral Capsule 300 mg 12 h Give 300 mg by mouth two times a day for pain 02/25/2024 02/25/2024 Gabapentin Oral Capsule 300 MG 300 {Capsule} 12 h Give 300 capsule by mouth two times a day for pain 02/25/2024 02/26/2024 oxyCODONE HCl Oral Tablet 5 MG 10 mg Give 10 mg by mouth every 12 hours as needed for pain management 02/25/2024 03/03/2024 oxyCODONE HCl Oral Tablet 5 MG 10 mg 8 h Give 10 mg by mouth every 8 hours 02/25/2024 03/03/2024 Gabapentin Oral Capsule 300 MG 3 {Capsule} 8 h Give 3 capsule by [facility] three times a day for Pain management 02/26/2024 oxyCODONE HCl Oral Tablet 5 MG 1 {tbl} Give 1 tablet by [facility] every 8 hours as needed for pain 03/03/2024 Medications Administered Medication Dose Frequency Status Start Date End Date Tamsulosin HCl Capsule 0.8 mg 025 Centrum Silver Tablet 1 {tbl} 24 h 03/03/19 25 Atorvastatin Calcium Oral Ta blet 10 MG 1 {tbl} 03/03/2024 Aspirin EC Tablet Delayed Re lease 81 MG 1 {tbl} 24 h 03/03/2024 Albuterol Sulfate HFA Inhala tion Aerosol Solution 108 (90 Base) MCG/ACT 2 02/08/2024 Wixela Inhub Inhalation Aero lisette Powder Breath Activated 500-50 MCG/ACT 1 12 h 03/03/2024 Incruse Ellipta Inhalation A erosol Powder Breath Activated 62.5 MCG/ACT 1 24 h 03/03/2024 Metoprolol Succinate ER Tabl et Extended Release 24 Hour 25 MG 1 {tbl} 24 h 03/03/2024 Ipratropium-Albuterol Inhala tion Solution 0.5-2.5 (3) MG/3ML 3 mL 02/08/2024 Milk of Magnesia Suspension 400 MG/5ML 30 mL 02/15/2024 Saline Laxative Enema 1 02/08/20 24 MiraLax Powder 17 02/08/2024 Dulcolax Suppository [address] 20 MG CAPSULE 1 {Capsule} 24 h 03/03/2024 Colace Capsule 100 MG 1 {Capsule} 12 h 2024 MiraLax Oral Packet 17 GM 17 24 h 07/2024 oxyCODONE HCl Oral Tablet 5 MG 1 {tbl} 02/26/2024 Acetaminophen Oral Tablet 325 MG 3 {tbl} 8 h 03/03/2024 oxyCODONE HCl Oral Tablet 5 MG 10 mg 8 h 02/25/2024 Naloxone HCl Liquid 4 MG/0.1ML 0.4 mg/mL 02/13/2024 oxyCODONE HCl Oral Tablet 10 MG 1 {tbl} 02/21/2024 Doxycycline Monohydrate Oral Tablet 100 mg 12 h 02/25/2024 Probiotic Oral Capsule 250 MG 1 {Capsule} 24 h 02/28/2024 Gabapentin Capsule 300 MG 3 {Capsule} 24 h Gabapentin Tablet 600 MG 1 {tbl} 24 h 02/24 Gabapentin Tablet 600 MG 1 {tbl} 24 h 02/24 GABAdone Oral Capsule 300 mg 12 h 02/25/20 24 Gabapentin Oral Capsule 300 MG 300 {Capsule} 12 h 02/25/2024 oxyCODONE HCl Oral Tablet 5 MG 10 mg 03/02/2024 oxyCODONE HCl Oral Tablet 5 MG 10 mg 8 h 03/03/2024 Gabapentin Oral Capsule 300 MG 3 {Capsule} 8 h 03/03/2024 oxyCODONE HCl Oral Tablet 5 MG 1 {tbl} 03/03/2024 Problems Problem Status Start Date End Date ENCOUNTER FOR ORTHOPEDIC AFT ERCARE FOLLOWING SURGICAL AMPUTATION (Primary) (Z47.81 - ICD-10-CM) RESOLVED 02/08/2024 03/10/2024 OTHER MICROSCOPIC HEMATURIA (R31.29 - ICD-10-CM) RESOL PILLO 02/08/2024 03/10/2024 BENIGN PROSTATIC HYPERPLASIA WITHOUT LOWER URINARY TRACT SYMPTOMS (N40.0 - ICD-10-CM) RESOLVED 02/08/202403/10 PERIPHERAL VASCULAR DISEASE, UNSPECIFIED (I73.9 - ICD-10-CM) RESOLVED 02/08/2024 03/10/2024 CHRONIC OBSTRUCTIVE PULMONAR Y DISEASE, UNSPECIFIED (J44.9 - ICD-10-CM) RESOLVED 02/09/2024 03/10/2024 MUSCLE WEAKNESS (GENERALIZED) (M62.81 - ICD-10-CM) RES OLVED 02/08/2024 03/10/2024 UNSTEADINESS ON FEET (R26.81 - ICD-10-CM) RESOLVED 02/08/2024 03/10/2024 PAROXYSMAL ATRIAL FIBRILLATION (I48.0 - ICD-10-CM) RES OLVED 02/09/2024 03/10/2024 Results * Individual Tests: COVID Screening Performed by: Point of Care Testing Component Value Range Date SARS coronavirus 2 Ag Negative 2024 07:00 am EST * Individual Tests: COVID Screening Performed by: Point of Care Testing Component Value Range Date SARS coronavirus 2 Ag Negative 2024 07:00 am EST * KNEE 1 OR 2 VIEWS Performed by: [employer] Component Value Range Date KNEE 1 OR 2 VIEWS KNEE 1 OR 2 VIEWS, R IGHTFINDINGS: No acute fracture or dislocation. The osseous structures appear intact. Modest joint space narrowing. Soft tissues are unremarkable. Postoperative changes.CONCLUSION: No acute osseous findings. Recommend a repeat multi-view imaging in 1 week or sooner if clinically warranted especially if symptoms continue to persist or progress.ELECTRONICALLY SIGNED BY AYDE OSCAR M.D. 02/15/2024 11:45:43 AM EST.Reason for Study: M25.561 PAIN IN RIGHT KNEEPrincipal Result Technical Support Associate: AYDE OSCAR ([id number])Door Furring Installer: JOHNNY JACKSON (DCONDON)Maitre D' Door Furring Installer: MACARENA 02/15/2024 11:46 am EST Encounters Encounter Performer Performer Role Encounter Diagnoses Location Date Discharge - Discharged to home or self care - [facility] - Private home/apt. with home health services [facility] 02/08/2024 10:44 pm EST - 03/03/2024 12:20 pm EST Advance Directives Directive Description Verification DO NOT RESUSCITATE (DNR), SEE MOLST Other Direct ko Immunizations Vaccine Date TB 1 Step Mantoux (PPD) Social History Vital Signs Vital Sign Reading Time Taken respirations 18 /min 03/03/2024 11:16 am EST respirations 16 /min 03/03/2024 03:39 am EST respirations 18 /min 03/02/2024 10:16 pm EST respirations 16 /min 03/02/2024 09:33 am EST respirations 18 /min 03/02/2024 09:32 am EST respirations 15 /min 03/02/2024 03:52 am EST respirations 18 /min 03/01/2024 04:37 pm EST respirations 16 /min 03/01/2024 12:27 pm EST systolicValue 117 mm[Hg] 03/03/2024 11:16 am EST diastolicValue 80 mm[Hg] 03/03/2024 11:16 am EST systolicValue 128 mm[Hg] 03/02/2024 09:33 am EST diastolicValue 76 mm[Hg] 03/02/2024 09:33 am EST systolicValue 130 mm[Hg] 03/01/2024 07:59 pm EST diastolicValue 78 mm[Hg] 03/01/2024 07:59 pm EST temperature 97 [degF] 03/03/2024 11:16 am EST temperature 97.6 [degF] 03/03/2024 03:39 am EST temperature 97.3 [degF] 03/02/2024 10:16 pm EST temperature 97 [degF] 03/02/2024 09:33 am EST temperature 97.6 [degF] 03/02/2024 09:32 am EST temperature 98 [degF] 03/02/2024 03:52 am EST temperature 97.7 [degF] 03/01/2024 04:37 pm EST temperature 98.1 [degF] 03/01/2024 12:27 pm EST heartrate 65 /min 03/03/2024 11:16 am EST heartrate 70 /min 03/03/2024 03:39 am EST heartrate 62 /min 03/02/2024 10:16 pm EST heartrate 66 /min 03/02/2024 09:33 am EST heartrate 66 /min 03/02/2024 09:32 am EST heartrate 66 /min 03/02/2024 03:52 am EST heartrate 68 /min 03/01/2024 04:37 pm EST heartrate 70 /min 03/01/2024 12:27 pm EST oxygenSaturation 95 % 03/03/2024 11:1 6 am EST oxygenSaturation 97 % 03/03/2024 03:3 9 am EST oxygenSaturation 97 % 03/02/2024 10:1 6 pm EST oxygenSaturation 96 % 03/02/2024 09:3 3 am EST oxygenSaturation 96 % 03/02/2024 09:3 2 am EST oxygenSaturation 96 % 03/02/2024 03:5 2 am EST oxygenSaturation 94 % 03/01/2024 04:3 7 pm EST oxygenSaturation 98 % 03/01/2024 12:2 7 pm EST painLevel 6 {score} 03/03/2024 10:42 am EST painLevel 7 {score} 03/03/2024 06:49 am EST painLevel 0 {score} 03/03/2024 02:26 am EST painLevel 7 {score} 03/02/2024 11:59 pm EST painLevel 0 {score} 03/02/2024 11:58 pm EST painLevel 7 {score} 03/02/2024 09:37 pm EST painLevel 7 {score} 03/02/2024 01:04 pm EST painLevel 7 {score} 03/02/2024 12:37 pm EST painLevel 7 {score} 03/02/2024 12:36 pm EST painLevel 7 {score} 03/02/2024 09:41 am EST painLevel 4 {score} 03/02/2024 07:02 am EST painLevel 0 {score} 03/02/2024 01:12 am EST painLevel 7 {score} 03/01/2024 07:59 pm EST painLevel 0 {score} 03/01/2024 04:37 pm EST painLevel 0 {score} 03/01/2024 04:36 pm EST
--- OUTSIDE RECORDS SUMMARY | 2024-03-25 14:09 | XMS_ITS ---
Author Organization Quinton Callahan III, MD Address [address] [place] [address] Care Team Providers Care Director Of Athletics Name Role Phone Quinton Callahan Primary Care Provider [phone] REASON FOR VISIT Verbal Orders Social History Sex Assigned At : Social History Observation Description Sex Assigned At Male Encounters Encounter Location Date Provider Diagnosis Quinton Callahan III, MD [address] [place] [address] [place] [address] 03/04/2024 Quinton Callahan Plan Of Treatment Next Appt Details Provider Name:Quinton Callahan, 10/15/2024 11:00:00 AM, [address] [place] [address] KAILYN JURADO, [place], [address], Progress Notes * Ana ENCINAShDOB:1960 (63 yo M)Acc No.[id number]:03/04/2024 Patient:?Zan ENCINAS :1960???Age:63 Y???Sex:Male Address:[address] [place] [address], [address], [place], [address] * true * Date:? Generated for Montanai robby/Jai/eTransmitting on:?03/25/2024 02:08 PM EST
== END 2024-03-25 13:40 | disposition home or self-care (01) ==
PROVIDERS: PCP Internal Medicine Medical Oncology; Visit Provider Physician Assistant Surgical
DX: S88.111D Complete traumatic amputation at level between knee and ankle, right lower leg, subsequent encounter (principal)
CPT/HCPCS: 99024

== ENCOUNTER → 2024-03-25 13:08 | Outpatient (BNVA) | payer MEDICARE, SELFPAY | PROVIDERS: PCP Internal Medicine Medical Oncology; Visit Provider Physician Assistant Surgical | DX: Z47.81 Encounter for orthopedic aftercare following surgical amputation (principal); Z89.511 Acquired absence of right leg below knee | CPT/HCPCS: 99212 ==

== ENCOUNTER 2024-04-08 12:53 | Outpatient (AMB) | payer MEDICARE, SELFPAY ==
--- NOTE | 2024-04-08 12:56 | A.OFFVIS_ITS ---
Intake Visit Reasons: 2 week follow up R BKA Intake Note: 2 week follow up Right BKA 02/04/24, has 2 openings along the incision that are draining, currently has VNA 3 times per week although may be changing frequency soon. Using alginate to pack wounds, Does have drainage. Accompanied by: Self / Same As Patient Allergies No Known Allergies Allergy (Verified 04/08/24 13:06) HPI HPI 2 week follow up R BKA: Details: Zan is presenting today as a 2 week follow up follow up status BKA, performed on 02/04/2024. He states he has been doing well at home. He does continue getting VNA services 3 times a week, who do all of the dressing changes. He states he is getting physical therapy coming in a proximally 1 day a week. He states that he has been having occupational therapy as well coming in; however, he believes that they may be signing off soon due to him doing so well. They were able to get him an elevated toilet seat as well as a shower chair, which has been helping the patient doing his daily cleanings. He states he is very impressed with how well the site has been healing. [facility] Medical History Krish angina Left bundle branch block Bakers cyst Nicotine dependence, cigarettes, uncomplicated Arthritis BPH (benign prostatic hyperplasia) Elevated cholesterol Complex regional pain syndrome i of right lower limb S/P angiogram of extremity (07/18/23) Atrial fibrillation History of Palmer's esophagus Splenic vein thrombosis History of femoral angiogram GERD (gastroesophageal reflux disease) COPD (chronic obstructive pulmonary disease) Peripheral arterial disease Surgical History History of tonsillectomy Hx of oral surgery Hx of tracheostomy History of esophagogastroduodenoscopy (EGD) H/O colonoscopy Social History Household Members: Family Household Members Other:: Son, son girlfriend, grandbaby Housing: Apartment Housing Other:: 3 stairs to climb Are you a primary nursing care partner to a significant other at home: No Do you presently have visiting nurse or other home services: Yes Comment: Dr Knott made aware of absent pulse and sensation in right foot Patient Tobacco Use Status: Former Tobacco user Tobacco use type: Cigarette Cigarette Packs Per Day: 0.5 Cigarettes Per Day: 10 Years Smoked: 50 e-Cigarette/Vaping Use: Former Use Second Hand Smoke Exposure: No Substance Use Type: Marijuana service: No Review of Systems Const Reports as per HPI and Denies weakness ENT Reports Normal hearing present and Denies dizziness Card Reports as per HPI, Denies chest pain, Denies chest pain at rest, Denies chest pain with activity, Denies dyspnea and Denies dyspnea on exertion Resp Reports as per HPI, Denies cough, Denies dyspnea and Denies dyspnea on exertion GI Reports as per HPI, Denies abdominal pain, Denies nausea and Denies vomiting Musc Denies numbness Skin/Breast Reports as per HPI, Denies erythema and Denies wounds Neuro Reports Normal hearing present, Denies dizziness, Denies numbness, Denies Sensory deficit (Neuro) and Denies weakness Psych Reports no additional complaints Endo Reports no additional complaints Physical Exam Const General: healthy appearing and no acute distress Orientation/consciousness: patient oriented x3 HEENT Head: Yes normal to inspection Ears: hearing grossly normal bilaterally Mouth: Normal oral and palatal mucosa present Resp Effort & Inspection: normal respiratory effort and able to speak in complete sentences Auscultation: clear to auscultation bilaterally Cardio Jugular venous distension: no JVD Rate: regular rate Rhythm: regular rhythm Heart sounds: S1 normal heart sound present and S2 normal heart sound present Bruits: no abdominal aortic bruits, no carotid bruits, no femoral bruits and no renal bruits Peripheral pulses: Peripheral pulses 2+ throughout GI Inspection: Yes normal to inspection Palpation (GI): No Abdominal aortic bruit present Skin General skin exam: no rashes or lesions noted Wounds: no wounds Hair: normal Neuro General: patient oriented x3 Cranial nerves: Yes Normal hearing present Cognition (Neuro): normal cognition Gait exam (Neuro): Normal gait present Motor exam (neuro): 5/5 motor strength present throughout Sensory Exam: No Sensory deficit (Neuro) Extrem Other: Right BKA site: 2 small wounds continue, the rest of the site has healed very well. Middle site - measuring 0.5 cm x 0.3 cm x 0.3 cm, decreased from last visit of 1 cm x 1 cm x 0.5 cm (03/25), with a small amount of serous drainage. Medial aspect wound - measuring 2 cm by 0.5 cm x 0.4 cm, decreased from last visit of 2.6 cm x 1.1 cm x 0.75 cm (03/25), with minimal serous drainage. Both sides have decreased in size significantly. General: Yes normal to inspection, Yes full ROM, Yes capillary refill normal and Yes normal gait Assessment & Plan Assessment & Plan (1) Below-knee amputation of right lower extremity: Code(s): S88.111A - Complete traumatic amputation at level between knee and ankle, right lower leg, initial encounter Category: Medical Qualifiers: Encounter type: subsequent encounter Qualified Code(s): S88.111D - Complete traumatic amputation at level between knee and ankle, right lower leg, subsequent encounter Plan: Zan is presenting today as a 2 week follow status post right BKA on 02/04/2024. He continues with the VNA services 3 times a week. He states physical therapy is coming once a week. He states he is likely being discharged from OT. He has been doing very well at home and states she is very happy with the healing of the site. We will continue with the same dressings of alginate with ABD pads/4x4s and Kerlix wrap 3 times a week. We will have him follow up with us in 2 weeks. If there are any questions or concerns, please do not hesitate to reach out to us. Coding Level of Care Code Est Pt Level 4 (76505) Diagnoses Below-knee amputation of right lower extremity, subsequent encounter S88.111D Encounter type: subsequent encounter
--- OUTSIDE RECORDS SUMMARY | 2024-04-08 13:54 | XMS_ITS | Encounter Summary ---
Author Organization [facility] Address [phone] [place] [address] Care Team Providers Care Induction Coordination Power Engineer Name Role Phone Quinton Callahan MD Primary Care Provider [phone]- [phone] Encounter Details Date Type Department Care Team (Late st Contact Info) Description 11/28/2023 Procedure Pass [facility] [address] [place] [address] Social History Tobacco Use Types Packs/Day Years [...] on filedocumented in this encounter Care Teams Induction Coordination Power Engineer Relationship Specialty Start Date End Date Quinton Callahan MD [address] [facility] [address] [place] [address] PCP - General Medical Oncology 11/23/23 documented as of this encounter Additional Source Comments The information contained in this document represents components of the legal health record. It is not the complete legal health record.[facility]
--- OUTSIDE RECORDS SUMMARY | 2024-04-08 13:54 | XMS_ITS | Encounter Summary ---
Author Organization [facility] Address [phone] [place] [address] Care Team Providers Care Credit Report Checker Name Role Phone Quinton Callahan MD Primary Care Provider [phone]- [phone] Encounter Details Date Type Department Care Team (Late st Contact Info) Description 11/28/2023 Procedure [facility] [address] [place] [address] Social History Tobacco Use Types Packs/Day Years [...] on filedocumented in this encounter Care Teams Credit Report Checker Relationship Specialty Start Date End Date Quinton Callahan MD [address] [facility] [address] [place] [address] PCP - General Medical Oncology 11/23/23 documented as of this encounter Additional Source Comments The information contained in this document represents components of the legal health record. It is not the complete legal health record.[facility]
--- OUTSIDE RECORDS SUMMARY | 2024-04-08 13:54 | XMS_ITS | Encounter Summary ---
Author Organization [facility] Address [phone] [place] [address] Care Team Providers Care Hand Touch Up Painter Name Role Phone Quinton Callahan MD Primary Care Provider [phone]- [phone] Encounter Details Date Type Department Care Team (Late st Contact Info) Description 12/02/2023 Procedure Pass [facility] Periop [address] [place] [address] Social History Tobacco Use Types Packs/Day Years [...] on filedocumented in this encounter Care Teams Hand Touch Up Painter Relationship Specialty Start Date End Date Quinton Callahan MD [address] [facility] [address] [place] [address] PCP - General Medical Oncology 11/23/23 documented as of this encounter Additional Source Comments The information contained in this document represents components of the legal health record. It is not the complete legal health record.[facility]
--- OUTSIDE RECORDS SUMMARY | 2024-04-08 13:54 | XMS_ITS ---
Author Organization [facility] Address [address] [place] [address] Care Team Providers Care Developmental Training Counselor Name Role Phone Quinton Callahan MD Primary Care Provider Unavailab Quinton Alvarez Unavailable [phone] REASON FOR VISIT Patient presents today for EGD, NUGENT'S ESOPHAGUS Encounters Encounter Location Date Provider Diagnosis [facility] [address] [place] [address] 08/14/2023 Quinton Campos PLAN OF TREATMENT No Information
--- OUTSIDE RECORDS SUMMARY | 2024-04-08 13:54 | XMS_ITS | Encounter Summary ---
Author Organization [facility] Address [phone] [place] [address] Care Team Providers Care Strip Mine Supervisor Name Role Phone Quinton Callahan MD Primary Care Provider [phone]- [phone] Encounter Details Date Type Department Care Team (Late st Contact Info) Description 12/08/2023 Procedure Pass [facility] EKG [address] [place] [address] Social History Tobacco Use Types Packs/Day Years [...] on filedocumented in this encounter Care Teams Strip Mine Supervisor Relationship Specialty Start Date End Date Quinton Callahan MD [address] [facility] [address] [place] [address] PCP - General Medical Oncology 11/23/23 documented as of this encounter Additional Source Comments The information contained in this document represents components of the legal health record. It is not the complete legal health record.[facility]
--- OUTSIDE RECORDS SUMMARY | 2024-04-08 13:54 | XMS_ITS ---
Author Organization Quinton Callahan III, MD Address [address] [place] [address] Care Team Providers Care Educational Aide Name Role Phone Quinton Callahan Primary Care Provider REASON FOR VISIT Hospital Follow up Social History Sex Assigned At : Social History Observation Description Sex Assigned At Male Encounters Encounter Location Date Provider Diagnosis Quinton Callahan III, MD [address] [place] [address] [place] [address] 02/13/2024 Quinton Callahan Plan Of Treatment Next Appt Details Provider Name:Quinton Callahan, 10/15/2024 11:00:00 AM, [address] [place] [address] [place], [address], Progress Notes * Ana ENCINAShDOB:1960 (64 yo M)Acc No.[id number]:02/13/2024 Patient:?Zan ENCINAS Provider:?Quinton Callahan MD :1960???Age:63 Y???Sex:Male Duc e:02/13/2024 Address:[address] [place] [address], [facility] [address] [id number] Subjective: * Chief Complaints: * ???1. Hospital [...] Callahan MD Date:?01/26 Generated for Tristen bustamante/Jai/Henrry on:?04/08/2024 01:54 PM EST
--- OUTSIDE RECORDS SUMMARY | 2024-04-08 13:54 | XMS_ITS ---
Author Organization Quinton Callahan III, MD Address [address] [place] [address] Care Team Providers Care Military Science Instructor Name Role Phone Quinton Callahan Primary Care Provider REASON FOR VISIT Message Social History Sex Assigned At : Social History Observation Description Sex Assigned At Male Encounters Encounter Location Date Provider Diagnosis Quinton Callahan III, MD [address] [place] [address] [place] [address] 02/12/2024 Quinton Callahan Plan Of Treatment Next Appt Details Provider Name:Quinton Callahan, 10/15/2024 11:00:00 AM, [address] [place] [address] [address], [place], [address], Progress Notes * Ana ENCINAShDOB:1960 (63 yo M)Acc No.[id number]:02/12/2024 Patient:?Zan ENCINAS :1960???Age:63 Y???Sex:Male Address:[address] [facility], [place], [address] * true * Date:? Generated for Montanai robby/Jai/eTransmitting on:?04/08/2024 01:54 PM EST
--- OUTSIDE RECORDS SUMMARY | 2024-04-08 13:54 | XMS_ITS | Encounter Summary ---
Author Organization [facility] Address [phone] [place] [address] Care Team Providers Care Nurse Epidemiologist Name Role Phone Quinton Callahan MD Primary Care Provider +1- [phone] Encounter Details Date Type Department Care Team (Late st Contact Info) Description 11/28/2023 Procedure [facility] [address] [place] [address] Social History Tobacco Use Types Packs/Day Years [...] on filedocumented in this encounter Care Teams Nurse Epidemiologist Relationship Specialty Start Date End Date Quinton Callahan MD [address] [facility] [address] [place] [address] PCP - General Medical Oncology 11/23/23 documented as of this encounter Additional Source Comments The information contained in this document represents components of the legal health record. It is not the complete legal health record.[facility]
--- OUTSIDE RECORDS SUMMARY | 2024-04-08 13:55 | XMS_ITS | Encounter Summary ---
Author Organization [facility] Address [phone] [place] [address] Care Team Providers Care Band Nailer Name Role Phone Quinton Callahan MD Primary Care Provider +1- [phone] Encounter Details Date Type Department Care Team (Late st Contact Info) Description 11/28/2023 Procedure Pass [facility] [address] [place] [address] Social History Tobacco Use Types Packs/Day Years [...] on filedocumented in this encounter Care Teams Band Nailer Relationship Specialty Start Date End Date Quinton Callahan MD [address] [facility] [address] [place] [address] PCP - General Medical Oncology 11/23/23 documented as of this encounter Additional Source Comments The information contained in this document represents components of the legal health record. It is not the complete legal health record.[facility]
--- OUTSIDE RECORDS SUMMARY | 2024-04-08 13:55 | XMS_ITS | Clinical Summary ---
Author Organization [facility] Address [phone] [place] [address] Care Team Providers Care Pearl Digger Name Role Phone Quinton Callahan MD Primary Care Provider +1- [phone] Allergies No known active allergies Medications Medication [...] - 02/18/2024 11:59 PM EST Hospital Encounter [facility] [address] [place] [address] Garrett Fletcher MD Discharge Disposition: Home or Self Care 02/11/2024 6:59 AM EST - 02/11/2024 11:59 PM EST Hospital Encounter [facility] [address] [place] [address] Garrett Fletcher MD Discharge Disposition: Home or Self Care 02/11/2024 Transcribe Orders [facility] Specimen Processing [address] [place] [address] Garrett Fletcher MD Atrial fibrillation, unspecified type [...] this topic Medical Devices Implanted Type Area Hydrodynamics Professor Device Identifier Shelf Expiration Date Model / Serial / Lot Graft Vascular 6.0mmx60 70cm Propaten Heparin Carmeda Bioactive Surface Thin Wall Removable Ring Stretch - [id number] Implanted:Qty: 1 on 12/02/2023 by Percy Segundo MD at [facility] STANDARD Right: Vein [employer] [id number] 08/13/2026 [id number] / [id number] / Metal Clip Celd Left Groin 10/2023 Stent Right Femoral Artery Patch Pericardium 2cm 9cm Decellularized Bovine [employer] - [id number] Implanted:Qty: 1 on 12/02/2023 by Percy Segundo MD at [facility] Right: Vein [employer] [id number] 03/24/2025 [id number] / / [id number] Procedures Procedure Name Priority Date/Time Associated Diagnosis [...] included. WBC 8.40 4.00 - 11.00 K/uL [facility] RBC 3.83(L) 4.50 - 5.90 M/uL [facility] HGB 11.2(L) 13.5 - 17.5 g/dL [facility] HCT 34.8(L) 41.0 - 53.0 % [facility] PLT 372 150 - 450 K/uL [facility] MCV 90.9 80.0 - 100.0 fL [facility] MCH 29.2 27.0 - 31.0 pg [facility] MCHC 32.2 32.0 - 36.0 g/dL [facility] RDW 13.8 11.5 - 14.5 % [facility] MPV 9.4 8.4 - 12.0 fL [facility] NRBC 0.00 0.00 /100 WBCs [facility] ABSOLUTE NRBC 0.00 0.00 K/uL [facility] DIFF METHOD Auto [facility] NEUTS 65.7 48.0 - 76.0 % [facility] LYMPHS 19.0 18.0 - 41.0 % [facility] MONOS 10.4 4.0 - 11.0 % [facility] EOS 3.3 0.0 - 5.0 % [facility] BASOS 1.0 0.0 - 1.5 % [facility] Granulocytes, immature (%) 0.6 0.0 - 0.9 % [facility] ABSOLUTE NEUTS 5.52 1.92 - 7.60 K/uL [facility] ABSOLUTE LYMPHS 1.60 0.72 - 4.10 K/uL [facility] ABSOLUTE MONOS 0.87 0.16 - 1.10 K/uL [facility] ABSOLUTE EOS 0.28 0.00 - 0.50 K/uL [facility] ABSOLUTE BASOS 0.08 0.00 - 0.15 K/uL [facility] Granulocytes, immature 0.05 0.00 - 0.09 K/uL [facility] Blood 02/18/2024 8:01 AM EST 02/18/2024 10:00 AM EST Garrett Fletcher MD LAB BLOOD ORDERABLES Performing Organization Address City/State/[facility] Co de Phone Number [address] [address] * (ABNORMAL) Basic metabolic panel (02/18/2024 8:01 AM EST) SODIUM 137 133 - 146 mmol/L [facility] CHLORIDE 102 96 - 108 mmol/L [facility] POTASSIUM 4.4 3.3 - 5.1 mmol/L [facility] CO2 25 21 - 35 mmol/L [facility] BUN 13 6 - 19 mg/dL [facility] CREATININE 0.70 0.5 - 1.5 mg/dL [facility] GLUCOSE 101(H) 70 - 99 mg/dL [facility] CALCIUM 9.7 8.4 - 10.3 mg/dL [facility] EGFR 102 >59 mL/min/1.7 3m2 [facility] Comment:Estimated glomerular filtration rate calculated using the CKD-EPI refit equation. ANION GAP 14 10 - 20 mmol/L [facility] Blood 02/18/2024 8:01 AM EST 02/18/2024 10:00 AM EST Garrett Fletcher MD LAB BLOOD ORDERABLES [address] [address] * (ABNORMAL) Comprehensive metabolic panel (02/11/2024 5:10 AM EST) SODIUM 139 133 - 146 mmol/L [facility] POTASSIUM 4.4 3.3 - 5.1 mmol/L [facility] CHLORIDE 103 96 - 108 mmol/L [facility] CO2 25 21 - 35 mmol/L [facility] BUN 11 6 - 19 mg/dL [facility] CREATININE 0.60 0.5 - 1.5 mg/dL [facility] GLUCOSE 105(H) 70 - 99 mg/dL [facility] ALBUMIN 3.2(L) 3.9 - 4.8 g/dL [facility] TOTAL PROTEIN 5.7(L) 6.5 - 8.0 g/dL [facility] CALCIUM 9.3 8.4 - 10.3 mg/dL [facility] ALKALINE PHOSPHATASE 161(H) 39 - 117 U/L [facility] TOTAL BILIRUBIN 0.7 0.0 - 1.2 mg/dL [facility] AST 36 0 - 37 U/L [facility] ALT 60(H) 0 - 40 U/L [facility] GLOBULIN 2.5 1 - 4.8 g/dL [facility] EGFR 107 >59 mL/min/1.7 3m2 [facility] Comment:Estimated glomerular filtration rate calculated using the CKD-EPI refit equation. ANION GAP 15 10 - 20 mmol/L [facility] Blood 02/11/2024 5:10 AM EST 02/11/2024 7:12 AM EST Garrett Fletcher MD LAB BLOOD ORDERABLES [address] [address] * Patch Monitor up to 15 days [...] 108 bpm. Isolated SVEs were frequent (23.2%, [id number]), SVE Couplets were rare (<1.0%, 1242), and SVE Triplets were rare (<1.0%, 460). Isolated VEs were occasional (1.1%, 510[address]), and no VE Couplets or VE Triplets [...] 1:21 AM EDT) CHOLESTEROL 125 <200 mg/dL [facility] TRIGLYCERIDES 60 35 - 150 mg/dL [facility] HDL 60 40 - 80 mg/dL [facility] CALCULATED LDL 53 50 - 129 mg/dL [facility] VLDL 12 <31 mg/dL [facility] CARDIAC RISK RATIO 2.1 0.0 - 4.0 [facility] Blood 11/28/2023 1:21 AM EDT 11/28/2023 1:35 AM EDT Ayla Owens PA-C LAB BLOOD ORDERAB LES [facility] [address] [place] [address] from Last 3 Months or Most Recently Relevant to Health Maintenance Advance Directives * Full Code (Latest Code Status on File) Date Activated Date Inactivated Comments 11/27/2023 4:16 PM Question Answer Comments Code Status Confirmed With: Patient Care Teams Pearl Digger Relationship Specialty Start Date End Date Quinton Callahan MD [address] [place] [address] Drive [address] [place] [address] PCP - General Medical Oncology 11/23/23 Additional Source Comments The information contained in this document represents components of the legal health record. It is not the complete legal health record.[facility]
--- OUTSIDE RECORDS SUMMARY | 2024-04-08 13:55 | XMS_ITS ---
Author Organization Quinton Callahan III, MD Address [address] [address] Care Team Providers Care Block Piler Name Role Phone Quinton Callahan Primary Care Provider REASON FOR VISIT Verbal Orders Social History Sex Assigned At : Social History Observation Description Sex Assigned At Male Encounters Encounter Location Date Provider Diagnosis Quinton Callahan III, MD [address] [place] [address] [place] [address] 03/04/2024 Quinton Callahan Plan Of Treatment Next Appt Details Provider Name:Quinton Callahan, 10/15/2024 11:00:00 AM, [address] [place] [address] [address], [place], [address], Progress Notes * ENCINASAna RAMOShDOB:1960 (63 yo M)Acc No.[id number]:03/04/2024 Patient:?Zan ENCINAS :1960???Age:63 Y???Sex:Male Address:[address] [place] [address], [address], [place], [address] * true * Date:? Generated for Tristen bustamante/Jai/eTransmitting on:?04/08/2024 01:55 PM EST
--- OUTSIDE RECORDS SUMMARY | 2024-04-08 13:55 | XMS_ITS | Data Portability ---
Author Organization [facility], Main Office Address [address] [facility] [address] [place] [address] Care Team Providers Care Grape Crusher Name Role Phone [facility] [facility] OTHER KEON HEREDIA Primary Care Provider [phone] Assessment Encounter Date Assessment Date Assessment LastModified [...] Organization Details Recorded Time Blood in urine 84744293 Active [address], [address], [place], [address], [facility] 4 10:17:42 Benign prostatic hyperplasia 363665615 Active [address], [address], [place], [address], [facility] 4 10:17:40 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 [address], [address], [place], [address], [facility] 4 10:18:23 Limb ischemia 3645375478395 5 Active [address], [address], [place], [address], [facility] 4 10:19:49 Peripheral arterial disease 173755579 Active [address], [address], [place], [address], [facility] 4 10:21:45 Chronic obstructive pulmonary disease 35370369 Active [address], [address], [place], [address], [facility] 4 10:22:55 Gastroesoph ageal reflux disease 619224970 Active [address], [address], [place], [address], [facility] 4 10:23:11 Smoker 38697240 Active [address], [address], [place], [address], [facility] 4 10:23:08 Essential hypertensio n 41390028 Active [address], [address], [place], [address], [facility] 4 10:25:41 Hyperlipide angela 85983154 Active 2023 Yvonne Belcher [address] [place] [address], [address], [place], [address], [facility] 4 10:49:02 Peripheral vascular disease 787218065 Active 2023 Yvonne Belcher [address] [facility], [address], [place], [address], [facility] 4 10:49:07 Thrombosis of splenic artery 6515125600773 9106 Active 2023 Yvonne Belcher [address] [facility], [address], [place], [address], [facility] 4 10:49:17 Left bundle branch block 98802489 Active 2023 Yvonne Belcher [address] [place] [address], [address], [place], [address], [facility] 4 10:49:21 Palmer's esophagus 203293681 Active 2023 Yvonne Belcher [address] [place] [address], [facility] [address], [place], [address], [facility] 4 10:50:44 Problem Notes None recorded. [...] Current Every Day Smoker Iveth Diaz MD [address] [place] [address], [address], [place], [address], [facility] 02/11/2024 18:13:51 Do You Have An [...] Do You Have A Medical Power Of Office Chair Assembler? Yes Information not available 02/11/2024 What Was [...] (COVID-19) vaccine, UNSPECIFIED 06/25/2020 completed Nikia Montes [facility] [employer] [facility] 02/11/2024 12:20:14 SARS-COV-2 (COVID-19) vaccine, UNSPECIFIED 07/27/2020 completed Nikia Montes [facility] [employer] [facility] 02/11/2024 12:20:24 Past Encounters Encounter ID Performer Location Encounter Start Date Encounter Closed Date Diagnosis/Indication Diagnosis SNOMED-CT Code Diagnosis ICD10 Code Diagnosis Note [id number] SAMANTHA CONKLIN AT [address] [address] 02/10/2024 10:12:50 02/11/2024 14:36:04 Limb ischemia 8390481442 9105 I99.8 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 s/p R SFA - bk popliteal bypass with vein ([place], 07/2023)con tinue oxycodone 10 mg TID PRNgabapen tin 400 mg QID PRN (odd, would make scheduled) monitor pain controlPT/ OT eval and treatfollo w up with surgeon in 2 weeksshrin ker to be placed once healed- add abd and celeste daily due to bleeding Peripheral arterial insufficiency 4204102329 83485 I73.9 see aboveASA 81 mg dailyfollo wed by vascular Benign pro static hyperplasia 314850890 N40.0 continue flomax 0.8 mg qhsmonitor for outflow issues Gastroesop hageal reflux disease 896073518 K21.9 pantoprazo le 80 mg dailyconsi lia reduction if toleratesm onitor reflux Blood in urine 57042131 R31.9 had inpatientm onitor for clearing Chronic ob structive pulmonary disease 18331699 J44.9 albuterol PRNincruse dailywixel a BIDmonitor resp status Essential hypertension 89686209 I10 assumed as pt is on metoprolol 25 mg daily but no [facility] Constipation 83512170 K5 9.00 add colace 100 mg BIDmonitor for improvemen t [id number] Iveth Diaz MD [place] AT [address] [address] 02/11/2024 15:43:03 02/12/2024 15:32:16 Limb ischemia 2504483721 9105 I99.8 Will change oxycodone to 10 [...] with surgeon as planned. Peripheral arterial insufficiency 9158248942 69544 I73.89 Z89.511 As above. Benign pro static hyperplasia 763284901 N40.0 No current sxs.Contin ue tamsulosin 0.8 mg qhsMonitor urinary function Gastroesop hageal reflux disease 050112957 K21.9 No current sxs.Contin ue pantoprazo le 80 mg qdMonitor GI sxs. Blood in urine 70028374 R31.0 Had one episode inpt.Now resolved.M onitor for recurrence . Chronic ob structive pulmonary disease 54911133 J43.8 Resp status good at this time.Liv nue incruse ellipta qd, Wixela 500/50 BID, duonebs BID prn and albuterol MDI 2 puffs q 4 hrs prn.Monito r resp status. Essential hypertension 25840711 I10 In good control since here (HTN is on PCP problem list)Liv nue metoprolol 25 mg qdMonitor BP and labs. Constipation 80871339 K5 9.03 Will add miralax 17 gms qd and continue colace 100 mg BIDUse prn meds if needed.Mon itor bowel function. [id number] Nam CONKLIN AT [address] [address] 02/15/2024 10:31:46 02/18/2024 15:29:05 Postoperative wound cellulitis 452727192 L76.82 exam concerning for cellulitis with increased foul smelling discharges tart doxycyclin e 100mg BID x 10 days, probiotic qd x 14 dayscheck CBC w/diff, BMP ll obtain x-ray R stump r/o osteomonit or for worsening sxs Amputated below knee 299 615897 Z89.519 As above. Limb ischemia 6350287198 9105 I99.8 continue oxycodone to 10 mg q 6 hrs scheduled x 7 days, then 10 mg q 8 hrs scheduled x 7 days then 5 mg q 8 hrs prn.Add oxycodone 10mg q24h prn breakthrou gh paincontin ue APAP 975 mg TID and increase gabapentin to 600 mg TID.Contin ue ASA 81 mg qdF/U with surgeon as planned. [id number] Nam CONKLIN AT [address] [address] 02/19/2024 07:36:20 02/21/2024 12:23:04 Postoperative wound cellulitis 162897099 L76.82 Continue doxycyclin e 100mg BID x 10 days, probiotic qd x 14 dayslabs and x-ray unremarkab lemonitor for resolution Limb ischemia 9667527456 9105 I99.8 continue oxycodone 10 mg q 8 hrs scheduled x 7 days then 5 mg q 8 hrs prn. oxycodone 10mg q24h prn breakthrou gh paincontin ue APAP 975 mg TID and gabapentin to 600 mg qam and afternoon, 900mg qhsContinu e ASA 81 mg qdconsult PMR management of painF/U with surgeon as planned. Amputated below knee 299 959993 Z89.519 As above. [id number] SanchezGayCooper CONKLIN AT [address] [address] 02/22/2024 09:19:49 02/25/2024 15:55:50 Postoperative wound cellulitis 224701689 L76.82 Continue doxycyclin e 100mg BID x 10 days, probiotic qd x 14 dayslabs and x-ray unremarkab lemonitor for resolution Limb ischemia 6111744881 9105 I99.8 continue oxycodone 10 mg q 8 hrs scheduled x 7 days then 5 mg q 8 hrs prn. oxycodone 10mg q24h prn breakthrou gh paincontin ue APAP 975 mg TID and gabapentin to 600 mg qam and afternoon, 900mg qhsContinu e ASA 81 mg qdconsult PMR management of painF/U with surgeon as planned. Amputated below knee 299 390258 Z89.519 As above. [id number] Nam CONKLIN AT [address] [address] 02/25/2024 07:30:39 02/26/2024 13:58:50 Postoperative wound cellulitis 431351546 L76.82 resolvedmo nitor for recurrence Limb ischemia 7598885347 9105 I99.8 continue oxycodone 10 mg q 8 hrs scheduled x 7 days then 5 mg q 8 hrs prn. oxycodone 10mg BID prn breakthrou gh paincontin ue APAP 975 mg TID, INcrease gabapentin to 900 mg qam and afternoon, 900mg qhsContinu e ASA 81 mg qdconsult PMR management of painF/U with surgeon as planned. Amputated below knee 299 822031 Z89.519 As above. [id number] HallieCooper CONKLIN AT [address] [address] 02/28/2024 08:43:00 02/29/2024 10:22:21 Limb ischemia 4281666132 9105 I99.8 continue oxycodone 10 mg q 8 hrs scheduled x 7 days then 5 mg q 8 hrs prn. oxycodone 10mg BID prn breakthrou gh paincontin ue APAP 975 mg TID, gabapentin to 900 mg TIDContinu e ASA 81 mg qdconsult PMR management of painF/U with surgeon as planned. Amputated below knee 299 158843 Z89.519 As above. [id number] MD RUBIN Enciso AT [address] [address] 03/03/2024 11:24:29 03/27/2024 10:48:50 Limb ischemia 9509316562 9105 I99.8 s/p amputation cleared for discharge with services and ortho f/u in placedisch arged on oxycodone 5 mg q 8 prn pain #23 tablets given at time of dischargep atient will need appointmen t with PCP for f/u discussed with nursing to schedule prior to discharge Amputated below knee 299 196328 Z89.519 As above. Health Concerns Section Related Observation LastModified by Organization Detai ls LastModified Time None Recorded Concern Status LastModified by Organization Details LastModified Time None Recorded Advance Directives Directive Y: Payers Encounter Date Sequence Insurance Name Policy Number Policy Matute Covered Member ID Matute Member ID Guarantor Name 02/19/2024 1 [employer] (MEDICARE REPLACEMENT PPO) [id number] [id number] 02/22/2024 1 [employer] (MEDICARE REPLACEMENT PPO) [id number] [facility] [id number] [facility] 02/25/2024 1 [employer] (MEDICARE REPLACEMENT PPO) [id number] A Zan Encinas [id number] [facility] 02/28/2024 1 [employer] (MEDICARE REPLACEMENT PPO) [id number] A Zan Encinas [id number] [facility] 03/03/2024 1 [employer] (MEDICARE REPLACEMENT PPO) [id number] A Zan Schulerenter [id number] [facility] Notes Date Note Type Note Provider Name [...] f/t/h occlusion of bypass now s/p R ORTHOTICS PROSTHETICS ASSISTANT-AT bypass w ePTFE w/ patch angioplasties ([place] 12/01). [facility] [address] [place] [address], [address], [place], [address], [facility] 02/19/2024 09:56:01 02/22/2024 text/html This is a [...] f/t/h occlusion of bypass now s/p R ORTHOTICS PROSTHETICS ASSISTANT-AT bypass w ePTFE w/ patch angioplasties ([place] 12/01). [facility] [address] [facility], [address], [place], [address], [employer] 02/22/2024 11:16:10 02/25/2024 text/html This is a 63 yo man who is being seen for acute rounding visit Patient doing well todayPain controlled with oxycodone. Gabapentin increased last week at f/u vascular with IMprovement. Reported increased pain over the weekend with 1x dose oxycodone 10mg.Actively participating in therapyself-propelling around unit in w/cPMR consulted Patient seen sitting in room in bed in [facility]. He tells me for the most part [...] f/t/h occlusion of bypass now s/p R ORTHOTICS PROSTHETICS ASSISTANT-AT bypass w ePTFE w/ patch angioplasties ([place] 12/01). [facility] [address] [facility], [address], [place], [address], [facility] 02/25/2024 11:08:05 02/28/2024 text/html This is a 63 yo man who is being seen for acute rounding visit Patient had f/u vascular on 02/25recs to continue with daily dressing changes noted with small open area on medial aspectNo lamina searcher or prosthesis yet. The site needs to be completely healed first. Can increase gabapentin 900mg TID and decrease oxycodone.f/u 03/11/24 Patient seen lying in bed with rigging worker doing dressing change. He reports improvement in [...] f/t/h occlusion of bypass now s/p R ORTHOTICS PROSTHETICS ASSISTANT-AT bypass w ePTFE w/ patch angioplasties ([place] 12/01). [facility] [address] [facility], [address], [place], [address], [facility] 02/28/2024 12:14:07 03/03/2024 text/html Patient is a [...] f/u in place Garrett Fletcher MD [address] [facility], [address], [place], [address], [facility] 03/03/2024 11:33:58
--- OUTSIDE RECORDS SUMMARY | 2024-04-08 13:55 | XMS_ITS | Patient Health Record ---
Author Organization [facility] Address [address] [place] [address] Care Team Providers Care Slot Manager Name Role Phone Quinton Callahan MD Primary Care Provider Quinton Mao Unavailable [phone] REASON FOR REFERRAL No Information MEDICATIONS Medication [...] malignant neoplasm of colon (Z12.11) Active confirmed 560001906 Problem Palmer's esophagus without dysplasia (K22.70) Active confirmed 276432406 Problem Gastroesophageal reflux disease without esophagitis (K21.9) Active confirmed 494427554 Encounters Encounter Location Date Provider Diagnosis [facility] [address] [place] [address] 08/14/2023 Quinton Campos [facility] [address] [place] [address] 08/14/2023 Quinton Campos PLAN OF TREATMENT Future Test Test Name Order Date UPPER GI ENDOSCOPY 03/19/2013 UPPER GI ENDOSCOPY 06/11/2019 COLONOSCOPY 06/11/2019 Insurance Providers Payer Name Payer Address Payer Phone Subscriber Number Group Number Insured Name Patient Relationship to Insured Coverage Start Date Coverage End Date MEDICARE OF [place] [address] [facility] [address] [id number] JUAN FRANCISCO HOWELL Self - patient is the insured MEDICAL (GENERAL) HISTORY Medical History History ICD Code Colonoscopy in 12/2009 neg e xcept for a hyperplastic polyp, diverticulosis, and internal hemmorhoids GERD with a small area of Ba rrett's esophagus--EGD in 12/2009-small HH-bx neg for dysplasia 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 Knott 06/18/2019
--- OUTSIDE RECORDS SUMMARY | 2024-04-08 13:55 | XMS_ITS ---
Author Organization [facility] Address [address] [place] [address] Care Team Providers Care Tub Chucker Name Role Phone Quinton Callahan MD Primary Care Provider Unavailab Quinton Alvarez Unavailable [phone] REASON FOR VISIT no show Encounters Encounter Location Date Provider Diagnosis [facility] [address] [place] [address] 08/14/2023 Quinton Campos PLAN OF TREATMENT No Information
== END 2024-04-08 13:58 | disposition home or self-care (01) ==
PROVIDERS: PCP Internal Medicine Medical Oncology; Visit Provider Physician Assistant Surgical
DX: S88.111D Complete traumatic amputation at level between knee and ankle, right lower leg, subsequent encounter (principal)
CPT/HCPCS: 99024

== ENCOUNTER → 2024-04-08 12:53 | Outpatient (BNVA) | payer MEDICARE, SELFPAY | PROVIDERS: PCP Internal Medicine Medical Oncology; Visit Provider Physician Assistant Surgical | DX: Z47.81 Encounter for orthopedic aftercare following surgical amputation (principal); Z89.511 Acquired absence of right leg below knee | CPT/HCPCS: 99212 ==

== ENCOUNTER 2024-04-22 13:02 | Outpatient (AMB) | payer MEDICARE, SELFPAY ==
--- NOTE | 2024-04-22 13:02 | MHC.OFFVIS ---
Intake Visit Reasons: 2 week follow up Right BKA check Intake Note: Patient presents for follow up right bka check. States he slipped off his bed this morning and landed on his stump. States it started to bleed after falling. His visiting nurse comes twice a week now. Accompanied by: Self / Same As Patient Allergies No Known Allergies Allergy (Verified 04/22/24 13:05) HPI HPI 2 week follow up Right BKA check: Details: Zan is presenting today for a 2 week follow up status post right BKA performed on 02/04/2024. He has been doing well at home. He states he is very happy with how his healing is coming. He does state that this morning he accidentally lost his balance and fell onto the BKA stump, causing bleeding and some pain. He states he caught himself with his right hand onto the floor but did bang the BKA stump. He states the bleeding has stopped. He continues with the VNA Services, on Mondays and Fridays only now. Physical therapy has given him multiple activities/exercises to do, he states he is doing lower body exercises 3 times a week and 3 times a week upper body exercises, giving himself 1 day of rest. [facility]LY [facility], [facility] Medical History Krish angina Left bundle branch block Bakers cyst Nicotine dependence, cigarettes, uncomplicated Arthritis BPH (benign prostatic hyperplasia) Elevated cholesterol Complex regional pain syndrome i of right lower limb S/P angiogram of extremity (07/18/23) Atrial fibrillation History of Palmer's esophagus Splenic vein thrombosis History of femoral angiogram GERD (gastroesophageal reflux disease) COPD (chronic obstructive pulmonary disease) Peripheral arterial disease Surgical History History of tonsillectomy Hx of oral surgery Hx of tracheostomy History of esophagogastroduodenoscopy (EGD) H/O colonoscopy Social History Household Members: Family Household Members Other:: Son, son girlfriend, grandbaby Housing: Apartment Housing Other:: 3 stairs to climb Are you a primary director of patient care to a significant other at home: No Do you presently have visiting nurse or other home services: Yes Comment: Dr Knott made aware of absent pulse and sensation in right foot Patient Tobacco Use Status: Former Tobacco user Tobacco use type: Cigarette Cigarette Packs Per Day: 0.5 Cigarettes Per Day: 10 Years Smoked: 50 e-Cigarette/Vaping Use: Former Use Second Hand Smoke Exposure: No Substance Use Type: Marijuana service: No Review of Systems Const Reports as per HPI and Denies weakness ENT Reports Normal hearing present and Denies dizziness Card Reports as per HPI, Denies chest pain, Denies chest pain at rest, Denies chest pain with activity, Denies dyspnea and Denies dyspnea on exertion Resp Reports as per HPI, Denies cough, Denies dyspnea and Denies dyspnea on exertion GI Reports as per HPI, Denies abdominal pain, Denies nausea and Denies vomiting Musc Denies numbness Skin/Breast Reports as per HPI, Denies erythema and Denies wounds Neuro Reports Normal hearing present, Denies dizziness, Denies numbness, Denies Sensory deficit (Neuro) and Denies weakness Psych Reports no additional complaints Endo Reports no additional complaints Physical Exam Const General: healthy appearing and no acute distress Orientation/consciousness: patient oriented x3 HEENT Head: Yes normal to inspection Ears: hearing grossly normal bilaterally Mouth: Normal oral and palatal mucosa present Resp Effort & Inspection: normal respiratory effort and able to speak in complete sentences Auscultation: clear to auscultation bilaterally Cardio Jugular venous distension: no JVD Rate: regular rate Rhythm: regular rhythm Heart sounds: S1 normal heart sound present and S2 normal heart sound present Bruits: no abdominal aortic bruits, no carotid bruits, no femoral bruits and no renal bruits Peripheral pulses: Peripheral pulses 2+ throughout GI Inspection: Yes normal to inspection Palpation (GI): No Abdominal aortic bruit present Skin General skin exam: no rashes or lesions noted Wounds: no wounds Hair: normal Neuro General: patient oriented x3 Cranial nerves: Yes Normal hearing present Cognition (Neuro): normal cognition Gait exam (Neuro): Normal gait present Motor exam (neuro): 5/5 motor strength present throughout Sensory Exam: No Sensory deficit (Neuro) Extrem Other: Right BKA site: The 2 small wounds continue, the rest of the site is healed. Middle site measures 0.6 cm x0.3 cm, changed from last visit at 0.5 cm x 0.3 cm on 04/08/2024 with minimal serous drainage. There is a small amount of erythema just below this site, likely due to the fall. No bruising noted. This is the site where the bleeding came from. There is no bleeding at this point. The 2nd wound on the medial aspect is measuring 2 cm x 0.5 cm, the same as last visit on 04/08/24, with no drainage. General: Yes normal to inspection, Yes full ROM, Yes capillary refill normal and Yes normal gait Assessment & Plan Assessment & Plan (1) Below-knee amputation of right lower extremity: Code(s): S88.111A - Complete traumatic amputation at level between knee and ankle, right lower leg, initial encounter Category: Medical Qualifiers: Encounter type: subsequent encounter Qualified Code(s): S88.111D - Complete traumatic amputation at level between knee and ankle, right lower leg, subsequent encounter Plan: Zan is presenting today for a 2 week follow up status post right BKA on 02/04/2024. He continues to VNA services twice a week now on Mondays and Fridays only. He has been doing well at home and has been happy with the healing with the site. He has been decreasing his gabapentin dosage as to be 400 mg b.i.d. and 700 mg prior to bed. He states he will be likely decreasing it even more of the next couple of weeks. He does continue to endorse phantom pain, which is what he is using the gabapentin for. He had a fall earlier today which resulted in some bleeding in the middle open site of the BKA site. It is currently not bleeding. It has not opened up anymore. We dressed it with alginate, 4x4s, and Kerlix wrap. The patient utilizes Tubigrip at home and we will place it on when he gets home. He continues do very well. We will have him follow up with us in 2 weeks. If there are any questions or concerns, please do not hesitate to reach out to us. Coding Level of Care Code Global (73311) Diagnoses Below-knee amputation of right lower extremity, subsequent encounter S88.111D Encounter type: subsequent encounter
--- OUTSIDE RECORDS SUMMARY | 2024-04-22 15:58 | XMS_ITS | Encounter Summary ---
Author Organization [facility] Address [phone] [place] [address] Care Team Providers Care Pediatrics Hospitalist Name Role Phone Quinton Callahan MD Primary Care Provider [phone] Encounter Details Date Type Department Care Team (Late st Contact Info) Description 11/28/2023 Procedure Pass [facility] [address] [place] [address] Social History Tobacco Use Types Packs/Day Years [...] on filedocumented in this encounter Care Teams Pediatrics Hospitalist Relationship Specialty Start Date End Date Quinton Callahan MD [address] [facility] [address] [place] [address] PCP - General Medical Oncology 11/23/23 documented as of this encounter Additional Source Comments The information contained in this document represents components of the legal health record. It is not the complete legal health record.[facility]
--- OUTSIDE RECORDS SUMMARY | 2024-04-22 15:58 | XMS_ITS ---
Author Organization Quinton Callahan III, MD Address [address] [place] [address] Care Team Providers Care Air Brush Decorator Name Role Phone Quinton Callahan Primary Care Provider [phone] REASON FOR VISIT Message Social History Sex Assigned At : Social History Observation Description Sex Assigned At Male Encounters Encounter Location Date Provider Diagnosis Quinton Callahan III, MD [address] [place] [address] [place] [address] 02/12/2024 Quinton Callahan Plan Of Treatment Next Appt Details Provider Name:Quinton Callahan, 10/15/2024 11:00:00 AM, [address] [place] [address] [place], [place], [address], Progress Notes * Ana ENCINAShDOB:1960 (63 yo M)Acc No.[id number]:02/12/2024 Patient:?Zan ENCINAS :1960???Age:63 Y???Sex:Male Address:[address] [facility], [place], [address] * true * Date:? Generated for Montanai robby/Jai/eTransmitting on:?04/22/2024 03:58 PM EST
--- OUTSIDE RECORDS SUMMARY | 2024-04-22 15:58 | XMS_ITS | Encounter Summary ---
Author Organization [facility] Address [phone] [place] [address] Care Team Providers Care Accounting Administrative Assistant Name Role Phone Quinton Callahan MD Primary Care Provider +1- [phone] Encounter Details Date Type Department Care Team (Late st Contact Info) Description 11/28/2023 Procedure Pass [facility] [address] [place] [address] Social History Tobacco Use Types Packs/Day Years [...] on filedocumented in this encounter Care Teams Accounting Administrative Assistant Relationship Specialty Start Date End Date Quinton Callahan MD 10 [facility] [address] [place] [address] PCP - General Medical Oncology 11/23/23 documented as of this encounter Additional Source Comments The information contained in this document represents components of the legal health record. It is not the complete legal health record.[facility]
--- OUTSIDE RECORDS SUMMARY | 2024-04-22 15:58 | XMS_ITS | Encounter Summary ---
Author Organization [facility] Address [phone] [place] [address] Care Team Providers Care Chemical Tester Name Role Phone Quinton Callahan MD Primary Care Provider +1- [phone] Encounter Details Date Type Department Care Team (Late st Contact Info) Description 12/08/2023 Procedure Pass [facility] EKG [address] [place] [address] Social History Tobacco Use Types Packs/Day Years [...] on filedocumented in this encounter Care Teams Chemical Tester Relationship Specialty Start Date End Date Quinton Callahan MD 10 [facility] [address] [place] [address] PCP - General Medical Oncology 11/23/23 documented as of this encounter Additional Source Comments The information contained in this document represents components of the legal health record. It is not the complete legal health record.[facility]
--- OUTSIDE RECORDS SUMMARY | 2024-04-22 15:58 | XMS_ITS | Encounter Summary ---
Author Organization [facility] Address [phone] [place] [address] Care Team Providers Care Fish Hatchery Worker Name Role Phone Quinton Callahan MD Primary Care Provider +1- [phone] Encounter Details Date Type Department Care Team (Late st Contact Info) Description 12/02/2023 Procedure Pass [facility] Periop [address] [place] [address] Social History Tobacco Use Types Packs/Day Years [...] on filedocumented in this encounter Care Teams Fish Hatchery Worker Relationship Specialty Start Date End Date Quinton Callahan MD 10 [facility] [address] [place] [address] PCP - General Medical Oncology 11/23/23 documented as of this encounter Additional Source Comments The information contained in this document represents components of the legal health record. It is not the complete legal health record.[facility]
--- OUTSIDE RECORDS SUMMARY | 2024-04-22 15:58 | XMS_ITS ---
Author Organization Quinton Callahan III, MD Address [address] [place] [address] Care Team Providers Care Necktie Turner Name Role Phone Quinton Callahan Primary Care Provider REASON FOR VISIT Hospital Follow up Social History Sex Assigned At : Social History Observation Description Sex Assigned At Male Encounters Encounter Location Date Provider Diagnosis Quinton Callahan III, MD [address] [place] [address] [place] [address] 02/13/2024 Quinton Callahan Plan Of Treatment Next Appt Details Provider Name:Quinton Callahan, 10/15/2024 11:00:00 AM, [address] [place] [address] [place], [address], Progress Notes * Ana ENCINAShDOB:1960 (64 yo M)Acc No.[id number]:02/13/2024 Patient:?Zan ENCINAS Provider:?Quinton Callahan MD :1960???Age:63 Y???Sex:Male Duc e:02/13/2024 Address:[address] [place] [address], [facility] [address] [id number] Subjective: * Chief Complaints: * ???1. Hospital [...] Callahan MD Date:?01/26 Generated for Tristen bustamante/Jai/Henrry on:?04/22/2024 03:58 PM EST
--- OUTSIDE RECORDS SUMMARY | 2024-04-22 15:58 | XMS_ITS | Encounter Summary ---
Author Organization [facility] Address [phone] [place] [address] Care Team Providers Care Excavating Supervisor Name Role Phone Quinton Callahan MD Primary Care Provider +1- [phone] Encounter Details Date Type Department Care Team (Late st Contact Info) Description 11/28/2023 Procedure Pass [facility] [address] [place] [address] Social History Tobacco Use Types Packs/Day Years [...] on filedocumented in this encounter Care Teams Excavating Supervisor Relationship Specialty Start Date End Date Quinton Callahan MD 10 [facility] [address] [place] [address] PCP - General Medical Oncology 11/23/23 documented as of this encounter Additional Source Comments The information contained in this document represents components of the legal health record. It is not the complete legal health record.[facility]
--- OUTSIDE RECORDS SUMMARY | 2024-04-22 15:58 | XMS_ITS | Encounter Summary ---
Author Organization [facility] Address [phone] [place] [address] Care Team Providers Care Well Service Derrick Worker Name Role Phone Quinton Callahan MD Primary Care Provider +1- [phone] Encounter Details Date Type Department Care Team (Late st Contact Info) Description 11/28/2023 Procedure Pass [facility] [address] [place] [address] Social History Tobacco Use Types Packs/Day Years [...] on filedocumented in this encounter Care Teams Well Service Derrick Worker Relationship Specialty Start Date End Date Quinton Callahan MD 10 [facility] [address] [place] [address] PCP - General Medical Oncology 11/23/23 documented as of this encounter Additional Source Comments The information contained in this document represents components of the legal health record. It is not the complete legal health record.[facility]
--- OUTSIDE RECORDS SUMMARY | 2024-04-22 15:59 | XMS_ITS ---
Author Organization Quinton Callahan III, MD Address [address] [facility] [place] [address] Care Team Providers Care Developing Machine Tender Name Role Phone Quinton Callahan Primary Care Provider REASON FOR VISIT Verbal Orders Social History Sex Assigned At : Social History Observation Description Sex Assigned At Male Encounters Encounter Location Date Provider Diagnosis Quinton Callahan III, MD [address] [place] [address] [place] [address] 03/04/2024 Quinton Callahan Plan Of Treatment Next Appt Details Provider Name:Quinton Callahan, 10/15/2024 11:00:00 AM, [address] [place] [address] [place], [place], [address], Progress Notes * ENCINASAna RAMOShDOB:1960 (63 yo M)Acc No.[id number]:03/04/2024 Patient:?Zan ENCINAS :1960???Age:63 Y???Sex:Male Address:[address] [place] [address], [address], [place], [address] * true * Date:? Generated for Tristen bustamante/Jai/eTransmitting on:?04/22/2024 03:58 PM EST
--- OUTSIDE RECORDS SUMMARY | 2024-04-22 15:59 | XMS_ITS | Clinical Summary ---
Author Organization [facility] Address [phone] [place] [address] Care Team Providers Care Sprinkler Repair Technician Name Role Phone Quinton Callahan MD Primary Care Provider +1- [phone] Allergies No known active allergies Medications Medication [...] - 02/18/2024 11:59 PM EST Hospital Encounter [facility] [address] [place] [address] Garrett Fletcher MD Discharge Disposition: Home or Self Care 02/11/2024 6:59 AM EST - 02/11/2024 11:59 PM EST Hospital Encounter [facility] [address] [place] [address] Garrett Fletcher MD Discharge Disposition: Home or Self Care 02/11/2024 Transcribe Orders [facility] Specimen Processing [address] [place] [address] Garrett Fletcher MD Atrial fibrillation, unspecified type [...] this topic Medical Devices Implanted Type Area Retail Brand Ambassador Device Identifier Shelf Expiration Date Model / Serial / Lot Graft Vascular 6.0mmx60 70cm Propaten Heparin Carmeda Bioactive Surface Thin Wall Removable Ring Stretch - [id number] Implanted:Qty: 1 on 12/02/2023 by Percy Segundo MD at [facility] STANDARD Right: Vein [employer] [id number] 08/13/2026 [id number] / [id number] / Metal Clip Celd Left Groin 10/2023 Stent Right Femoral Artery Patch Pericardium 2cm 9cm Decellularized Bovine [employer] - [id number] Implanted:Qty: 1 on 12/02/2023 by Percy Segundo MD at [facility] Right: Vein [employer] [id number] 03/24/2025 [id number] / / [id number] Procedures Procedure Name Priority Date/Time Associated Diagnosis [...] unspecified whether lower urinary tract symptoms present LIPID PANEL Routine 11/28/2023 1:21 AM EDT from Last 3 Months or Most Recently Relevant to Health Maintenance Results * (ABNORMAL) CBC and differential (02/18/2024 8:01 AM EST) Only the most recent of2 resultswithin the time period is included. WBC 8.40 4.00 - 11.00 K/uL [facility] RBC 3.83(L) 4.50 - 5.90 M/uL [facility] HGB 11.2(L) 13.5 - 17.5 g/dL [facility] HCT 34.8(L) 41.0 - 53.0 % [facility] PLT 372 150 - 450 K/uL [facility] MCV 90.9 80.0 - 100.0 fL [facility] MCH 29.2 27.0 - 31.0 pg [facility] MCHC 32.2 32.0 - 36.0 g/dL [facility] RDW 13.8 11.5 - 14.5 % [facility] MPV 9.4 8.4 - 12.0 fL [facility] NRBC 0.00 0.00 /100 WBCs [facility] ABSOLUTE NRBC 0.00 0.00 K/uL [facility] DIFF METHOD Auto [facility] NEUTS 65.7 48.0 - 76.0 % [facility] LYMPHS 19.0 18.0 - 41.0 % [facility] MONOS 10.4 4.0 - 11.0 % [facility] EOS 3.3 0.0 - 5.0 % [facility] BASOS 1.0 0.0 - 1.5 % [facility] Granulocytes, immature (%) 0.6 0.0 - 0.9 % [facility] ABSOLUTE NEUTS 5.52 1.92 - 7.60 K/uL [facility] ABSOLUTE LYMPHS 1.60 0.72 - 4.10 K/uL [facility] ABSOLUTE MONOS 0.87 0.16 - 1.10 K/uL [facility] ABSOLUTE EOS 0.28 0.00 - 0.50 K/uL [facility] ABSOLUTE BASOS 0.08 0.00 - 0.15 K/uL [facility] Granulocytes, immature 0.05 0.00 - 0.09 K/uL [facility] Blood 02/18/2024 8:01 AM EST 02/18/2024 10:00 AM EST Garrett Fletcher MD LAB BLOOD ORDERABLES [address] [address] * (ABNORMAL) Basic metabolic panel (02/18/2024 8:01 AM EST) SODIUM 137 133 - 146 mmol/L [facility] CHLORIDE 102 96 - 108 mmol/L [facility] POTASSIUM 4.4 3.3 - 5.1 mmol/L [facility] CO2 25 21 - 35 mmol/L [facility] BUN 13 6 - 19 mg/dL [facility] CREATININE 0.70 0.5 - 1.5 mg/dL [facility] GLUCOSE 101(H) 70 - 99 mg/dL [facility] CALCIUM 9.7 8.4 - 10.3 mg/dL [facility] EGFR 102 >59 mL/min/1.7 3m2 [facility] Comment:Estimated glomerular filtration rate calculated using the CKD-EPI refit equation. ANION GAP 14 10 - 20 mmol/L [facility] Blood 02/18/2024 8:01 AM EST 02/18/2024 10:00 AM EST Garrett Fletcher MD LAB BLOOD ORDERABLES Performing Organization Address City/[facility]/ZIP Co de Phone Number [address] [address] * (ABNORMAL) Comprehensive metabolic panel (02/11/2024 5:10 AM EST) SODIUM 139 133 - 146 mmol/L [facility] POTASSIUM 4.4 3.3 - 5.1 mmol/L [facility] CHLORIDE 103 96 - 108 mmol/L [facility] CO2 25 21 - 35 mmol/L [facility] BUN 11 6 - 19 mg/dL [facility] CREATININE 0.60 0.5 - 1.5 mg/dL [facility] GLUCOSE 105(H) 70 - 99 mg/dL [facility] ALBUMIN 3.2(L) 3.9 - 4.8 g/dL [facility] TOTAL PROTEIN 5.7(L) 6.5 - 8.0 g/dL [facility] CALCIUM 9.3 8.4 - 10.3 mg/dL [facility] ALKALINE PHOSPHATASE 161(H) 39 - 117 U/L [facility] TOTAL BILIRUBIN 0.7 0.0 - 1.2 mg/dL [facility] AST 36 0 - 37 U/L [facility] ALT 60(H) 0 - 40 U/L [facility] GLOBULIN 2.5 1 - 4.8 g/dL [facility] EGFR 107 >59 mL/min/1.7 3m2 [facility] Comment:Estimated glomerular filtration rate calculated using the CKD-EPI refit equation. ANION GAP 15 10 - 20 mmol/L [facility] Blood 02/11/2024 5:10 AM EST 02/11/2024 7:12 AM EST Garrett Fletcher MD LAB BLOOD ORDERABLES [facility] [address] [place] [address] * Lipid panel (11/28/2023 1:21 AM EDT) CHOLESTEROL 125 <200 mg/dL [facility] TRIGLYCERIDES 60 35 - 150 mg/dL [facility] HDL 60 40 - 80 mg/dL [facility] CALCULATED LDL 53 50 - 129 mg/dL [facility] VLDL 12 <31 mg/dL [facility] CARDIAC RISK RATIO 2.1 0.0 - 4.0 [facility] Blood 11/28/2023 1:21 AM EDT 11/28/2023 1:35 AM EDT Ayla Owens PA-C LAB BLOOD ORDERAB LES [facility] [address] [place] [address] from Last 3 Months or Most Recently Relevant to Health Maintenance Advance Directives * Full Code (Latest Code Status on File) Date Activated Date Inactivated Comments 11/27/2023 4:16 PM Question Answer Comments Code Status Confirmed With: Patient Care Teams Sprinkler Repair Technician Relationship Specialty Start Date End Date Callahan, Quinton Rock[place], MD [address] [place] [address] PCP - General Medical Oncology 11/23/23 Additional Source Comments The information contained in this document represents components of the legal health record. It is not the complete legal health record.[facility]
== END 2024-04-22 13:48 | disposition home or self-care (01) ==
PROVIDERS: PCP Internal Medicine Medical Oncology; Visit Provider Physician Assistant Surgical
DX: S88.111D Complete traumatic amputation at level between knee and ankle, right lower leg, subsequent encounter (principal)
CPT/HCPCS: 99024

== ENCOUNTER → 2024-04-22 13:02 | Outpatient (BNVA) | payer MEDICARE, SELFPAY | PROVIDERS: PCP Internal Medicine Medical Oncology; Visit Provider Physician Assistant Surgical | DX: Z47.81 Encounter for orthopedic aftercare following surgical amputation (principal); Z89.511 Acquired absence of right leg below knee | CPT/HCPCS: 99212 ==

== ENCOUNTER → 2024-05-06 13:34 | Outpatient (BNVA) | payer MEDICARE, SELFPAY | PROVIDERS: PCP Internal Medicine Medical Oncology; Visit Provider Physician Assistant Surgical | DX: Z47.81 Encounter for orthopedic aftercare following surgical amputation (principal); Z89.511 Acquired absence of right leg below knee | CPT/HCPCS: 99212 ==

== ENCOUNTER 2024-05-06 13:35 | Outpatient (AMB) | payer MEDICARE, SELFPAY ==
--- NOTE | 2024-05-06 13:57 | MHC.OFFVIS ---
Intake Visit Reasons: 2 week follow up R BKA check Intake Note: Patient presents for 2 week follow up right BKA. Patient is still seeing [facility] once - twice a week. No complaints. Accompanied by: Self / Same As Patient Allergies No Known Allergies Allergy (Verified 05/06/24 13:58) HPI HPI 2 week follow up R BKA check: Details: Zan is presenting today for a 2w follow up s/p right BKA, performed on 02/04/24. He states he has been doing well at home and is getting outside as well. He continues to change his own dressings without difficulty. He states the pain has been getting better and is only getting intermittent nerve pain. He has no new concerns today. [facility] Medical History Krish angina Left bundle branch block Bakers cyst Nicotine dependence, cigarettes, uncomplicated Arthritis BPH (benign prostatic hyperplasia) Elevated cholesterol Complex regional pain syndrome i of right lower limb S/P angiogram of extremity (07/18/23) Atrial fibrillation History of Palmer's esophagus Splenic vein thrombosis History of femoral angiogram GERD (gastroesophageal reflux disease) COPD (chronic obstructive pulmonary disease) Peripheral arterial disease Surgical History History of tonsillectomy Hx of oral surgery Hx of tracheostomy History of esophagogastroduodenoscopy (EGD) H/O colonoscopy Social History Household Members: Family Household Members Other:: Son, son girlfriend, grandbaby Housing: Apartment Housing Other:: 3 stairs to climb Are you a primary patient care director to a significant other at home: No Do you presently have visiting nurse or other home services: Yes Comment: Dr Knott made aware of absent pulse and sensation in right foot Patient Tobacco Use Status: Former Tobacco user Tobacco use type: Cigarette Cigarette Packs Per Day: 0.5 Cigarettes Per Day: 10 Years Smoked: 50 e-Cigarette/Vaping Use: Former Use Second Hand Smoke Exposure: No Substance Use Type: Marijuana service: No Review of Systems Const Reports as per HPI and Denies weakness ENT Reports Normal hearing present and Denies dizziness Card Reports as per HPI, Denies chest pain, Denies chest pain at rest, Denies chest pain with activity, Denies dyspnea and Denies dyspnea on exertion Resp Reports as per HPI, Denies cough, Denies dyspnea and Denies dyspnea on exertion GI Reports as per HPI, Denies abdominal pain, Denies nausea and Denies vomiting Musc Denies numbness Skin/Breast Reports as per HPI, Denies erythema and Denies wounds Neuro Reports Normal hearing present, Denies dizziness, Denies numbness, Denies Sensory deficit (Neuro) and Denies weakness Psych Reports no additional complaints Endo Reports no additional complaints Physical Exam Const General: healthy appearing and no acute distress Orientation/consciousness: patient oriented x3 HEENT Head: Yes normal to inspection Ears: hearing grossly normal bilaterally Mouth: Normal oral and palatal mucosa present Resp Effort & Inspection: normal respiratory effort and able to speak in complete sentences Auscultation: clear to auscultation bilaterally Cardio Jugular venous distension: no JVD Rate: regular rate Rhythm: regular rhythm Heart sounds: S1 normal heart sound present and S2 normal heart sound present Bruits: no abdominal aortic bruits, no carotid bruits, no femoral bruits and no renal bruits Peripheral pulses: Peripheral pulses 2+ throughout GI Inspection: Yes normal to inspection Palpation (GI): No Abdominal aortic bruit present Skin General skin exam: no rashes or lesions noted Wounds: no wounds Hair: normal Neuro General: patient oriented x3 Cranial nerves: Yes Normal hearing present Cognition (Neuro): normal cognition Gait exam (Neuro): Normal gait present Motor exam (neuro): 5/5 motor strength present throughout Sensory Exam: No Sensory deficit (Neuro) Extrem Other: Right BKA site: the 2 small wounds continue; the rest of the site has completely healed. The middle site is 0.5cmx0.5cm, decreased from 0.6x0.3cm on 04/22; there is minimal serous drainage unless it is pressed on. The medial aspect wound is measuring 0.5cmx0.4cm, decreased significantly from 04/22, when it was 2cmx0.5cm. There is very minimal drainage noted from the site; the rest of the site is scabbed over from last visit. General: Yes normal to inspection, Yes full ROM, Yes capillary refill normal and Yes normal gait Assessment & Plan Assessment & Plan (1) Below-knee amputation of right lower extremity: Code(s): S88.111A - Complete traumatic amputation at level between knee and ankle, right lower leg, initial encounter Category: Medical Qualifiers: Encounter type: subsequent encounter Qualified Code(s): S88.111D - Complete traumatic amputation at level between knee and ankle, right lower leg, subsequent encounter Plan: Zan is doing very well. He is presenting today s/p right BKA, performed on 02/04/24. He has been very happy with how well the site is healing. He does continue with 2 small open areas, but they are also getting smaller. He states his phantom/nerve pain has been decreasing as well. He has been getting outside and doing more things around the house. We will be changing his dressing to Allevyn; this can be changed every 2-3 days, depending on drainage on the dressing. The pt is happy with the dressing change and not having to wrap the site. We will follow up with him in 2w. We discussed that the site will have to completely heal and then we will have him work with a prosthetic company. If there are any questions or concerns, please do not hesitate to reach out to us. Coding Level of Care Code Global (96519) Diagnoses Below-knee amputation of right lower extremity, subsequent encounter S88.111D Encounter type: subsequent encounter
--- OUTSIDE RECORDS SUMMARY | 2024-05-06 16:28 | XMS_ITS | Data Portability ---
Author Organization [facility], Main Office Address [address] [facility], [facility] [address] [place] [address] Care Team Providers Care Manager Compliance Name Role Phone [facility] OTHER KEON HEREDIA Primary Care Provider [...] Organization Details Recorded Time Blood in urine 28052721 Active [address], [address], [place], [address], [facility] 4 10:17:42 Benign prostatic hyperplasia 456443710 Active [address], [address], [place], [address], [facility] 4 10:17:40 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 [address], [address], [place], [address], [facility] 4 10:18:23 Limb ischemia 6176709758063 5 Active [address], [address], [place], [address], [facility] 4 10:19:49 Peripheral arterial disease 958813629 Active [address], [address], [place], [address], [facility] 4 10:21:45 Chronic obstructive pulmonary disease 12935239 Active [address], [address], [place], [address], [facility] 4 10:22:55 Gastroesoph ageal reflux disease 592597173 Active [address], [address], [place], [address], [facility] 4 10:23:11 Smoker 75831091 Active [address], [address], [place], [address], [facility] 4 10:23:08 Essential hypertensio n 06121067 Active [address], [address], [place], [address], [facility] 4 10:25:41 Hyperlipide angela 34415946 Active 2023 Yvonne Belcher [address] [place] [address], [address], [place], [address], [facility] 4 10:49:02 Peripheral vascular disease 547933611 Active 2023 Yvonne Belcher [address] [facility], [address], [place], [address], [facility] 4 10:49:07 Thrombosis of splenic artery 8966335466985 9106 Active 2023 Yvonne Belcher [address] [facility], [address], [place], [address], [facility] 4 10:49:17 Left bundle branch block 73677272 Active 2023 Yvonne Belcher [address] [place] [address], [address], [place], [address], [facility] 4 10:49:21 Palmer's esophagus 880019952 Active 2023 Yvonne Belcher [address] [place] [address], [facility] [address], [place], [address], [facility] 4 10:50:44 Problem Notes None recorded. [...] Current Every Day Smoker Iveth Diaz MD [address] [place] [address], [address], [place], [address], [facility] 02/11/2024 18:13:51 Do You Have An [...] Do You Have A Medical Power Of Utilization Management Manager? Yes Information not available 02/11/2024 What [...] (COVID-19) vaccine, UNSPECIFIED 06/25/2020 completed Nikia Montes [facility] 02/11/2024 12:20:14 SARS-COV-2 (COVID-19) vaccine, UNSPECIFIED 07/27/2020 completed Nikia Montes [facility] 02/11/2024 12:20:24 Past Encounters Encounter ID Performer Location Encounter Start Date Encounter Closed Date Diagnosis/Indication Diagnosis SNOMED-CT Code Diagnosis ICD10 Code Diagnosis Note [id number] SAMANTHA CONKLIN AT [address] [address] 02/10/2024 10:12:50 02/11/2024 14:36:04 Limb ischemia 6557797044 9105 I99.8 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 s/p R SFA - bk popliteal bypass with vein ([place], 07/2023)con tinue oxycodone 10 mg TID PRNgabapen tin 400 mg QID PRN (odd, would make scheduled) monitor pain controlPT/ OT eval and treatfollo w up with surgeon in 2 weeksshrin ker to be placed once healed- add abd and celeste daily due to bleeding Peripheral arterial insufficiency 1857469912 58395 I73.9 see aboveASA 81 mg dailyfollo wed by vascular Benign pro static hyperplasia 742127731 N40.0 continue flomax 0.8 mg qhsmonitor for outflow issues Gastroesop hageal reflux disease 196405772 K21.9 pantoprazo le 80 mg dailyconsi lia reduction if toleratesm onitor reflux Blood in urine 67441701 R31.9 had inpatientm onitor for clearing Chronic ob structive pulmonary disease 18234207 J44.9 albuterol PRNincruse dailywixel a BIDmonitor resp status Essential hypertension 28360822 I10 assumed as pt is on metoprolol 25 mg daily but no documented h[facility] Constipation 08635791 K5 9.00 add colace 100 mg BIDmonitor for improvemen t [id number] Iveth Diaz MD [facility] AT [address] [address] 02/11/2024 15:43:03 02/12/2024 15:32:16 Limb ischemia 0708601050 9105 I99.8 Will change oxycodone to 10 [...] with surgeon as planned. Peripheral arterial insufficiency 2612567671 41105 I73.89 Z89.511 As above. Benign pro static hyperplasia 774422375 N40.0 No current sxs.Contin ue tamsulosin 0.8 mg qhsMonitor urinary function Gastroesop hageal reflux disease 755975271 K21.9 No current sxs.Contin ue pantoprazo le 80 mg qdMonitor GI sxs. Blood in urine 13374383 R31.0 Had one episode inpt.Now resolved.M onitor for recurrence . Chronic ob structive pulmonary disease 85440358 J43.8 Resp status good at this time.Liv nue incruse ellipta qd, Wixela 500/50 BID, duonebs BID prn and albuterol MDI 2 puffs q 4 hrs prn.Monito r resp status. Essential hypertension 01090734 I10 In good control since here (HTN is on PCP problem list)Liv nue metoprolol 25 mg qdMonitor BP and labs. Constipation 37893517 K5 9.03 Will add miralax 17 gms qd and continue colace 100 mg BIDUse prn meds if needed.Mon itor bowel function. [id number] Nam CONKLIN AT [address] [address] 02/15/2024 10:31:46 02/18/2024 15:29:05 Postoperative wound cellulitis 431957606 L76.82 exam concerning for cellulitis with increased foul smelling discharges tart doxycyclin e 100mg BID x 10 days, probiotic qd x 14 dayscheck CBC w/diff, BMP ll obtain x-ray R stump r/o osteomonit or for worsening sxs Amputated below knee 299 636337 Z89.519 As above. Limb ischemia 1445951002 9105 I99.8 continue oxycodone to 10 mg q 6 hrs scheduled x 7 days, then 10 mg q 8 hrs scheduled x 7 days then 5 mg q 8 hrs prn.Add oxycodone 10mg q24h prn breakthrou gh paincontin ue APAP 975 mg TID and increase gabapentin to 600 mg TID.Contin ue ASA 81 mg qdF/U with surgeon as planned. [id number] Nam CONKLIN AT [address] [address] 02/19/2024 07:36:20 02/21/2024 12:23:04 Postoperative wound cellulitis 777233710 L76.82 Continue doxycyclin e 100mg BID x 10 days, probiotic qd x 14 dayslabs and x-ray unremarkab lemonitor for resolution Limb ischemia 5014957524 9105 I99.8 continue oxycodone 10 mg q 8 hrs scheduled x 7 days then 5 mg q 8 hrs prn. oxycodone 10mg q24h prn breakthrou gh paincontin ue APAP 975 mg TID and gabapentin to 600 mg qam and afternoon, 900mg qhsContinu e ASA 81 mg qdconsult PMR management of painF/U with surgeon as planned. Amputated below knee 299 265639 Z89.519 As above. [id number] SanchezGayCooper CONKLIN AT [address] [address] 02/22/2024 09:19:49 02/25/2024 15:55:50 Postoperative wound cellulitis 371589089 L76.82 Continue doxycyclin e 100mg BID x 10 days, probiotic qd x 14 dayslabs and x-ray unremarkab lemonitor for resolution Limb ischemia 6123945799 9105 I99.8 continue oxycodone 10 mg q 8 hrs scheduled x 7 days then 5 mg q 8 hrs prn. oxycodone 10mg q24h prn breakthrou gh paincontin ue APAP 975 mg TID and gabapentin to 600 mg qam and afternoon, 900mg qhsContinu e ASA 81 mg qdconsult PMR management of painF/U with surgeon as planned. Amputated below knee 299 221694 Z89.519 As above. [id number] Nam CONKLIN AT [address] [address] 02/25/2024 07:30:39 02/26/2024 13:58:50 Postoperative wound cellulitis 748960304 L76.82 resolvedmo nitor for recurrence Limb ischemia 6690465599 9105 I99.8 continue oxycodone 10 mg q 8 hrs scheduled x 7 days then 5 mg q 8 hrs prn. oxycodone 10mg BID prn breakthrou gh paincontin ue APAP 975 mg TID, INcrease gabapentin to 900 mg qam and afternoon, 900mg qhsContinu e ASA 81 mg qdconsult PMR management of painF/U with surgeon as planned. Amputated below knee 299 508681 Z89.519 As above. [id number] HallieCooper CONKLIN AT [address] [address] 02/28/2024 08:43:00 02/29/2024 10:22:21 Limb ischemia 4596130460 9105 I99.8 continue oxycodone 10 mg q 8 hrs scheduled x 7 days then 5 mg q 8 hrs prn. oxycodone 10mg BID prn breakthrou gh paincontin ue APAP 975 mg TID, gabapentin to 900 mg TIDContinu e ASA 81 mg qdconsult PMR management of painF/U with surgeon as planned. Amputated below knee 299 667100 Z89.519 As above. [id number] MD RUBIN Enciso AT [address] [address] 03/03/2024 11:24:29 03/27/2024 10:48:50 Limb ischemia 8385433622 9105 I99.8 s/p amputation cleared for discharge with services and ortho f/u in placedisch arged on oxycodone 5 mg q 8 prn pain #23 tablets given at time of dischargep atient will need appointmen t with PCP for f/u discussed with nursing to schedule prior to discharge Amputated below knee 299 668883 Z89.519 As above. Health Concerns Section Related Observation LastModified by Organization Detai ls LastModified Time None Recorded Concern Status LastModified by Organization Details LastModified Time None Recorded Advance Directives Directive Y: Payers Encounter Date Sequence Insurance Name Policy Number Policy Matute Covered Member ID Matute Member ID Guarantor Name 02/19/2024 1 [employer] (MEDICARE REPLACEMENT PPO) [id number] [facility] [id number] [facility] 02/22/2024 1 [employer] (MEDICARE REPLACEMENT PPO) [id number] [facility] [id number] [facility] 02/25/2024 1 [employer] (MEDICARE REPLACEMENT PPO) [id number] Zan Encinas [id number] [facility] 02/28/2024 1 [employer] (MEDICARE REPLACEMENT PPO) [id number] Zan Encinas [id number] [facility] 03/03/2024 1 [employer] (MEDICARE REPLACEMENT PPO) [id number] Zan Schulerenter [id number] [facility] Notes Date Note Type Note Provider Name [...] f/t/h occlusion of bypass now s/p R USABILITY ARCHITECT-AT bypass w ePTFE w/ patch angioplasties (Drew 12/01). [facility] [address] [place] [address], [address], [place], [address], [facility] [employer] 02/19/2024 09:56:01 02/22/2024 text/html This is a [...] f/t/h occlusion of bypass now s/p R USABILITY ARCHITECT-AT bypass w ePTFE w/ patch angioplasties (Drew 12/01). [facility] [address] [facility], [address], [place], [address], [employer] 02/22/2024 11:16:10 02/25/2024 text/html This is a 63 yo man who is being seen for acute rounding visit Patient doing well todayPain controlled with oxycodone. Gabapentin increased last week at f/u vascular with IMprovement. Reported increased pain over the weekend with 1x dose oxycodone 10mg.Actively participating in therapyself-propelling around unit in w/cPMR consulted Patient seen sitting in room in bed in [facility]. He tells me for the most [...] f/t/h occlusion of bypass now s/p R USABILITY ARCHITECT-AT bypass w ePTFE w/ patch angioplasties (Drew 12/01). [facility] [address] [facility], [address], [place], [address], [employer] [employer] [facility] 02/25/2024 11:08:05 02/28/2024 text/html This is a 63 yo man who is being seen for acute rounding visit Patient had f/u vascular on 02/25recs to continue with daily dressing changes noted with small open area on medial aspectNo gas meter prover or prosthesis yet. The site needs to be completely healed first. Can increase gabapentin 900mg TID and decrease oxycodone.f/u 03/11/24 Patient seen lying in bed with underpresser hand doing dressing change. He reports improvement in [...] f/t/h occlusion of bypass now s/p R USABILITY ARCHITECT-AT bypass w ePTFE w/ patch angioplasties (Ratna 12/01). [facility] [address] [facility], [address], [place], [address], [facility] [employer] 02/28/2024 12:14:07 03/03/2024 text/html Patient is a [...] in place Garrett Fletcher MD [address] [facility], [address], [place], [address], [facility] 03/03/2024 11:33:58
--- OUTSIDE RECORDS SUMMARY | 2024-05-06 16:28 | XMS_ITS ---
Author Organization [facility] Address [address] [place] [address] Care Team Providers Care Transfer Coordinator Name Role Phone London MORIN, Quinton Primary Care Provider Unavailab Quinton Alvarez [phone] REASON FOR VISIT Patient presents today for EGD, NUGENT'S ESOPHAGUS Encounters Encounter Location Date Provider Diagnosis [facility] [address] [place] [address] 08/14/2023 Quinton Campos Plan Of Treatment No Information Progress Notes * SHAUNA HERNANDEZHDOB:1960 (64 yo M)Acc No.[id number]:08/14/2023 Progress Notes Patient:?JUAN FRANCISCO HERNANDEZ Provider:?Quinton Campos MD :1960???Age:63 Y???Sex:Male Duc e:08/14/2023 Address:[address] [place] [address] [facility] Pcp:Quinton Callahan MD Subjective: * Chief Complaints: * ???1. Patient presents today for EGD, NUGENT'S ESOPHAGUS. * Medical History:? Objective: * Vitals:? Assessment: Plan: * Treatment: * * The named appointment provid er may or may not be the originator of this progress note, and it is not deemed complete until electronically signed by the appointment provider. Sign off status: Pending * Provider:?Quinton Campos MD Date:? 024 Generated for Printi ng/Faxing/eTransmitting on:?05/06/2024 04:28 PM EDT
--- OUTSIDE RECORDS SUMMARY | 2024-05-06 16:28 | XMS_ITS ---
Author Organization Quinton Callahan III, MD Address [address] [place] [address] Care Team Providers Care Dental Therapist Name Role Phone Quinton Callahan Primary Care Provider [phone] REASON FOR VISIT Verbal Orders Social History Sex Assigned At : Social History Observation Description Sex Assigned At Male Encounters Encounter Location Date Provider Diagnosis Quinton Callahan III, MD [address] [place] [address] [place] [address] 03/04/2024 Quinton Callahan Plan Of Treatment Next Appt Details Provider Name:Quinton Callahan, 10/15/2024 11:00:00 AM, [address] [place] [address] [place] [place], [place], [address], Progress Notes * ENCINASAna HEREDIAhDOB:1960 (63 yo M)Acc No.[id number]:03/04/2024 Patient:?Zan ENCINAS :1960???Age:63 Y???Sex:Male Address:[address] [place] [address], [address], [place], [address] * true * Date:? Generated for Montanai robby/Jai/eTransmitting on:?05/06/2024 04:28 PM EDT
--- OUTSIDE RECORDS SUMMARY | 2024-05-06 16:29 | XMS_ITS | Patient Health Record ---
Author Organization [facility] Address [address] [place] [address] Care Team Providers Care Ornamental Metalwork Designer Name Role Phone Quinton Callahan MD Primary Care Provider Quinton Mao Unavailable [phone] Reason For Referral No Information Medications Medication SIG (Take, Route, Frequency, Duration) Notes Start Date End Date Status Aspir-81 81m 1 tablet orally 1 po qd Active Spiriva HandiHaler 18 MCG INHALE ONE CAP BEULAH BY MOUTH ONCE A DAY Inhalation for 30 Active Pantoprazole Sodium 40 MG 2 tablet orally Once a day Active Tamsulosin HCl 0.4 MG 2 tablets Orally O nce a day Active Immunizations Vaccine Route Administration Date Status Comme nts Influenza Unknown 06/11/2019 Refused Social History Tobacco Use: Social History Observation Description Date Details (start date - stop date) Former Smoker NA - NA Tobacco Use/Smoking Question Answer Notes Patient is [...] Monthly (2 points) Points 6 Interpretation Positive Section Notes: He does smoke, but does not use any significant amount of alcohol He does smoke, but does not use any significant amount of alcohol Smoker but is trying to quit as of 06/09/2019; no significant alcohol Problems Problem Type SNOMED Code ICD Code Onset Dates Problem Status W/U Status Risk Notes Problem 688950084 Encounter for screening for malignant neoplasm of colon (Z12.11) Active confirmed Problem 275760084 Palmer's esopha xu without dysplasia (K22.70) Active confirmed Problem 900433706 Gastroesophageal reflux disease without esophagitis (K21.9) Active confirmed Encounters Encounter Location Date Provider Diagnosis [facility] [address] [place] [address] 08/14/2023 Quinton Campos Plan Of Treatment Future Test Test Name Order Date UPPER GI ENDOSCOPY 03/19/2013 UPPER GI ENDOSCOPY 06/11/2019 COLONOSCOPY 06/11/2019 Insurance Providers Payer Name Payer Address Payer Phone Subscriber Number Group Number Insured Name Patient Relationship to Insured Coverage Start Date Coverage End Date MEDICARE OF [place] [address] [place] [address] [id number] JUAN FRANCISCO HOWELL Self - patient is the insured Medical (General) History Medical History History ICD Code Colonoscopy in 12/2009 neg e xcept for a hyperplastic polyp, diverticulosis, and internal hemmorhoids GERD with a small area of Ba rrett's esophagus--EGD in 12/2009-small HH-bx neg for dysplasia Splenic vein thrombosis in approx 1999-- had previously been on Coumadin Denies [place],DM,CVA,renal disease EGD 04/2013 with small area o f Palmer's, no dysplasia nor esophagitis; small hiatal hernia COPD PVD with claudication as below Surgical History Surgery Date(Month/Year) 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 Knott 06/18/2019
--- OUTSIDE RECORDS SUMMARY | 2024-05-06 16:29 | XMS_ITS ---
Author Organization [facility] Address [address] [place] [address] Care Team Providers Care Sensory Scientist Name Role Phone London MORIN, Quinton Primary Care Provider Unavailab Quinton Alvarez Unavailable [phone] REASON FOR VISIT no show Encounters Encounter Location Date Provider Diagnosis [facility] [address] [place] [address] 08/14/2023 Quinton Campos Plan Of Treatment No Information Progress Notes * HERNANDEZJAZMINE HEREDIACARMENHDOB:1960 (63 yo M)Acc No.[id number]:08/14/2023 Patient:?JUAN FRANCISCO HERNANDEZ :1960???Age:63 Y???Sex:Male Address:[address] [place] [address] [place] [address] * true * Date:? Generated for Montanai robby/Jai/eTransmitting on:?05/06/2024 04:28 PM EDT
--- OUTSIDE RECORDS SUMMARY | 2024-05-06 16:29 | XMS_ITS ---
Author Organization Quinton Callahan III, MD Address [address] [facility] [place] [address] Care Team Providers Care Sales Representative Trainee Name Role Phone Quinton Callahan Primary Care Provider [phone] Medications Medication SIG (Take, Route, Frequency, Duration) Notes Start Date End Date Status Pantoprazole Sodium 40 MG Take 2 tablets by mouth once daily Active Albuterol Sulfate HFA 108 (90 Base) MCG/ACT INHALE 2 PUFFS BY MOUTH EVERY 4 TO 6 HOURS NEEDED FOR SHORTNESS OF BREATH OR WHEEZING Inhalation Active Metoprolol Succinate ER 25 MG Oral Active Gabapentin 400 MG 1 capsule Orally fou r times a day 10/31/2023 Active Eliquis 5 MG 1 Tablet Orally twic e a day Active Breo Ellipta 200-25 MCG/ACT INHALE 1 PUF F BY MOUTH ONCE DAILY Inhalation Active ibuprofen 1 tab Oral Active Tamsulosin HCl 0.4 MG Take 2 capsules by mouth once daily Active ASA 1 tab Oral Active Tylenol 325 MG 1 tablet as needed O rally every 4 hrs Active Atorvastatin Calcium 10 MG Take 1 tablet by mouth once daily Active Nystatin 370331 UNIT/GM 1 application Ex ternally Twice a day 12/21/2023 Active Social History Sex Assigned At : Social History Observation Description Sex Assigned At Male Encounters Encounter Location Date Provider Diagnosis Quinton Callahan III, MD [address] [place] [address] [place] [address] 05/02/2024 Quinton Callahan Plan Of Treatment Next Appt Details Provider Name:Quinton Callahan, 10/15/2024 11:00:00 AM, [address] [place] [address] [place], [address], Progress Notes * Ana ENCINAShDOB:1960 (64 yo M)Acc No.[id number]:05/02/2024 Patient:?Zan ENCINAS :1960???Age:64 Y???Sex:Male Address:[address] [place] [address], [address] Subjective: * Chief Complaints: * ??? * Medical History:? * Surgical History:? * Hospitalization/Major Diagno stic Procedure:? * Medications:?TakingNystatin 806574 UNIT/GM Powder 1 application Externally Twice a day Atorvastatin Calcium 10 MG Tablet Take 1 tablet by mouth once daily Tamsulosin HCl 0.4 MG Capsule Take 2 capsules by mouth once daily ibuprofen 1 tab Oral Tylenol 325 MG Tablet 1 tablet as needed Orally every 4 hrs ASA 1 tab Oral Breo Ellipta 200-25 MCG/ACT Aerosol Powder Breath Activated INHALE 1 PUFF BY MOUTH ONCE DAILY Inhalation Albuterol Sulfate HFA 108 (90 Base) MCG/ACT Aerosol Solution INHALE 2 PUFFS BY MOUTH EVERY 4 TO 6 HOURS NEEDED FOR SHORTNESS OF BREATH OR WHEEZING Inhalation Pantoprazole Sodium 40 MG Tablet Delayed Release Take 2 tablets by mouth once daily Gabapentin 400 MG Capsule 1 capsule Orally four times a day Metoprolol Succinate ER 25 MG Tablet Extended Release 24 Hour Oral Eliquis 5 MG Tablet 1 Tablet Orally twice a day Taking Nystatin 475547 UNIT/GM Powder 1 application Externally Twice a day Taking Atorvastatin Calcium 10 MG Tablet Take 1 tablet by mouth once daily Taking Tamsulosin HCl 0.4 MG Capsule Take 2 capsules by mouth once daily Taking ibuprofen 1 tab Oral Taking Tylenol 325 MG Tablet 1 tablet as needed Orally every 4 hrs Taking ASA 1 tab Oral Taking Breo Ellipta 200-25 MCG/ACT Aerosol Powder Breath Activated INHALE 1 PUFF BY MOUTH ONCE DAILY Inhalation Taking Albuterol Sulfate HFA 108 (90 Base) MCG/ACT Aerosol Solution INHALE 2 PUFFS BY MOUTH EVERY 4 TO 6 HOURS NEEDED FOR SHORTNESS OF BREATH OR WHEEZING Inhalation Taking Pantoprazole Sodium 40 MG Tablet Delayed Release Take 2 tablets by mouth once daily Taking Gabapentin 400 MG Capsule 1 capsule Orally four times a day Taking Metoprolol Succinate ER 25 MG Tablet Extended Release 24 Hour Oral Taking Eliquis 5 MG Tablet 1 Tablet Orally twice a day Objective: * Vitals:? * Physical Examination:? Assessment: Plan: * Treatment: * Procedure Codes:? * true * Date:? Generated for Tristen bustamante/Jai/Henrry on:?05/06/2024 04:29 PM EDT
--- OUTSIDE RECORDS SUMMARY | 2024-05-06 16:29 | XMS_ITS ---
Author Organization Quinton Callahan III, MD Address [address] [place] [address] Care Team Providers Care Credit Operations Processor Name Role Phone Quinton Callahan Primary Care Provider REASON FOR VISIT Rx Request Medications Medication SIG (Take, Route, Frequency, Duration) Notes Start Date End Date Status Metoprolol Succinate ER 25 MG 1 tablet Orally Once a day for 30 days Active Social History Sex Assigned At : Social History Observation Description Sex Assigned At Male Encounters Encounter Location Date Provider Diagnosis Quinton Callahan III, MD [address] [place] [address] [place] [address] 05/02/2024 Quinton Callahan Peripheral arterial disease I73.9 Assessments Encounter Date Diagnosis (ICD Code) Assessment Notes Treatment Notes Treatment Clinical Notes 05/02/2024 Peripheral arterial disease (ICD-10 - I73.9) Plan Of Treatment Medication Medication Name Sig Start Date Stop Date Notes Metoprolol Succinate ER 25 MG 1 tablet O rally Once a day for 30 days Next Appt Details Provider Name:Quinton Callahan, 10/15/2024 11:00:00 AM, [address] [place] [address] [place], [address], Progress Notes * HUANGAnahDOB:1960 (64 yo M)Acc No.[id number]:05/02/2024 Patient:?Zan ENCINAS :1960???Age:64 Y???Sex:Male Address:[address] [place] [address], [address], [place], [address] * Refills? Refill Metoprolol Succinate ER Tablet Extended Release 24 Hour, 25 MG, Orally, 30 Tablet, 1 tablet, Once a day, 30 days, Refills=11 * true * Date:? Generated for Tristen bustamante/Jai/Allysonitting on:?05/06/2024 04:29 PM EDT
--- OUTSIDE RECORDS SUMMARY | 2024-05-06 16:30 | XMS_ITS | Encounter Summary ---
Author Organization [facility] Address [address] [place] [address] [place] [address] Phone Care Team Providers Care Endoscopy Nurse Name Role Phone Quinton Callahan MD Primary Care Provider +1- [phone] Encounter Details Date Type Department Care Team (Late st Contact Info) Description 12/02/2023 Procedure Pass [facility] Periop [address] [place] [address] Social History Tobacco Use Types Packs/Day Years [...] on filedocumented in this encounter Care Teams Endoscopy Nurse Relationship Specialty Start Date End Date Quinton Callahan MD [address] [place] [phone] PCP - General Medical Oncology 11/23/23 documented as of this encounter Additional Source Comments The information contained in this document represents components of the legal health record. It is not the complete legal health record.[facility]
--- OUTSIDE RECORDS SUMMARY | 2024-05-06 16:30 | XMS_ITS | Encounter Summary ---
Author Organization [facility] Address [address] [place] [address] [place] [address] Phone Care Team Providers Care Major Assembly Lineman Name Role Phone Quinton Callahan MD Primary Care Provider +1- [phone] Encounter Details Date Type Department Care Team (Late st Contact Info) Description 12/08/2023 Procedure Pass [facility] EKG [address] [place] [address] Social History Tobacco Use Types Packs/Day Years [...] on filedocumented in this encounter Care Teams Major Assembly Lineman Relationship Specialty Start Date End Date Quinton Callahan MD [address] [place] [id number] PCP - General Medical Oncology 11/23/23 documented as of this encounter Additional Source Comments The information contained in this document represents components of the legal health record. It is not the complete legal health record.[facility]
--- OUTSIDE RECORDS SUMMARY | 2024-05-06 16:31 | XMS_ITS | Clinical Summary ---
Author Organization [facility] Address [address] [place] [address] Phone Care Team Providers Care Medical Videographer Name Role Phone Quinton Callahan MD Primary Care Provider +1- [phone] Allergies No known active allergies Medications Medication [...] - 02/18/2024 11:59 PM EST Hospital Encounter [facility] Laboratory [address] [place] [address] Garrett Fletcher MD Discharge Disposition: Home or Self Care 02/11/2024 6:59 AM EST - 02/11/2024 11:59 PM [facility] Hospital Encounter [facility] Laboratory [address] [place] [address] Garrett Fletcher MD Discharge Disposition: Home or Self Care 02/11/2024 Transcribe Orders [facility] Specimen Processing [address] [place] [address] Garrett Fletcher MD Atrial fibrillation, unspecified type [...] Hx and SMOKELESS TOBACCO SCREENING 1971 HEPATITIS C SCREENING 1976 COLOGUARD 2003 COLONOSCOPY [...] this topic Medical Devices Implanted Type Area Dental Services Director Device Identifier Shelf Expiration Date Model / Serial / Lot Graft Vascular 6.0mmx60 70cm Propaten Heparin Likeedsmeda Bioactive Surface Thin Wall Removable Ring Stretch - [id number] Implanted:Qty: 1 on 12/02/2023 by Percy Segundo MD at [facility] STANDARD Right: Vein [employer] [id number] 08/13/2026 [id number] / [id number] / Metal Clip Celd Left Groin 10/2023 Stent Right Femoral Artery Patch Pericardium 2cm 9cm Decellularized Bovine [employer] - [id number] Implanted:Qty: 1 on 12/02/2023 by Percy Segundo MD at [facility] Right: Vein [employer] [id number] 03/24/2025 [id number] / [id number] Procedures Procedure Name Priority Date/Time Associated Diagnosis [...] included. WBC 8.40 4.00 - 11.00 K/uL [facility] RBC 3.83(L) 4.50 - 5.90 M/uL [facility] HGB 11.2(L) 13.5 - 17.5 g/dL [facility] HCT 34.8(L) 41.0 - 53.0 % [facility] PLT 372 150 - 450 K/uL [facility] MCV 90.9 80.0 - 100.0 fL [facility] MCH 29.2 27.0 - 31.0 pg [facility] MCHC 32.2 32.0 - 36.0 g/dL [facility] RDW 13.8 11.5 - 14.5 % [facility] MPV 9.4 8.4 - 12.0 fL [facility] NRBC 0.00 0.00 /100 WBCs [facility] ABSOLUTE NRBC 0.00 0.00 K/uL [facility] DIFF METHOD Auto [facility] NEUTS 65.7 48.0 - 76.0 % [facility] LYMPHS 19.0 18.0 - 41.0 % [facility] MONOS 10.4 4.0 - 11.0 % [facility] EOS 3.3 0.0 - 5.0 % [facility] BASOS 1.0 0.0 - 1.5 % [facility] Granulocytes, immature (%) 0.6 0.0 - 0.9 % [facility] ABSOLUTE NEUTS 5.52 1.92 - 7.60 K/uL [facility] ABSOLUTE LYMPHS 1.60 0.72 - 4.10 K/uL [facility] ABSOLUTE MONOS 0.87 0.16 - 1.10 K/uL [facility] ABSOLUTE EOS 0.28 0.00 - 0.50 K/uL [facility] ABSOLUTE BASOS 0.08 0.00 - 0.15 K/uL [facility] Granulocytes, immature 0.05 0.00 - 0.09 K/uL [facility] Blood 02/18/2024 8:01 AM EST 02/18/2024 10:00 AM EST Garrett Fletcher MD LAB BLOOD ORDERABLES [address] [address] * (ABNORMAL) Basic metabolic panel (02/18/2024 8:01 AM EST) SODIUM 137 133 - 146 mmol/L [facility] CHLORIDE 102 96 - 108 mmol/L [facility] POTASSIUM 4.4 3.3 - 5.1 mmol/L [facility] CO2 25 21 - 35 mmol/L [facility] BUN 13 6 - 19 mg/dL [facility] CREATININE 0.70 0.5 - 1.5 mg/dL [facility] GLUCOSE 101(H) 70 - 99 mg/dL [facility] CALCIUM 9.7 8.4 - 10.3 mg/dL [facility] EGFR 102 >59 mL/min/1.7 3m2 [facility] Comment:Estimated glomerular filtration rate calculated using the CKD-EPI refit equation. ANION GAP 14 10 - 20 mmol/L [facility] Blood 02/18/2024 8:01 AM EST 02/18/2024 10:00 AM EST Garrett Fletcher MD LAB BLOOD ORDERABLES Performing Organization Address City/[facility]/ZIP Co de Phone Number [address] [address] * (ABNORMAL) Comprehensive metabolic panel (02/11/2024 5:10 AM EST) SODIUM 139 133 - 146 mmol/L [facility] POTASSIUM 4.4 3.3 - 5.1 mmol/L [facility] CHLORIDE 103 96 - 108 mmol/L [facility] CO2 25 21 - 35 mmol/L [facility] BUN 11 6 - 19 mg/dL [facility] CREATININE 0.60 0.5 - 1.5 mg/dL [facility] GLUCOSE 105(H) 70 - 99 mg/dL [facility] ALBUMIN 3.2(L) 3.9 - 4.8 g/dL [facility] TOTAL PROTEIN 5.7(L) 6.5 - 8.0 g/dL [facility] CALCIUM 9.3 8.4 - 10.3 mg/dL [facility] ALKALINE PHOSPHATASE 161(H) 39 - 117 U/L [facility] TOTAL BILIRUBIN 0.7 0.0 - 1.2 mg/dL [facility] AST 36 0 - 37 U/L [facility] ALT 60(H) 0 - 40 U/L [facility] GLOBULIN 2.5 1 - 4.8 g/dL [facility] EGFR 107 >59 mL/min/1.7 3m2 [facility] Comment:Estimated glomerular filtration rate calculated using the CKD-EPI refit equation. ANION GAP 15 10 - 20 mmol/L [facility] Blood 02/11/2024 5:10 AM EST 02/11/2024 7:12 AM EST Garrett Fletcher MD LAB BLOOD ORDERABLES [address] [address] * Lipid panel (11/28/2023 1:21 AM EDT) CHOLESTEROL 125 <200 mg/dL [facility] TRIGLYCERIDES 60 35 - 150 mg/dL [facility] HDL 60 40 - 80 mg/dL [facility] CALCULATED LDL 53 50 - 129 mg/dL [facility] VLDL 12 <31 mg/dL [facility] CARDIAC RISK RATIO 2.1 0.0 - 4.0 [facility] Blood 11/28/2023 1:21 AM EDT 11/28/2023 1:35 AM EDT Ayla Owens PA-C LAB BLOOD ORDERAB LES [facility] [address] [place] [address] from Last 3 Months or Most Recently Relevant to Health Maintenance Advance Directives For more information, please contact: [phone] (9AM - 5PM [facility], Sunday-Sunday) * Full Code (Latest Code Status on File) Date Activated Date Inactivated Comments 11/27/2023 4:16 PM Question Answer Comments Code Status Confirmed With: Patient Care Teams Medical Videographer Relationship Specialty Start Date End Date Quinton Callahan MD [address] [place] [id number] PCP - General Medical Oncology 11/23/23 Additional Source Comments The information contained in this document represents components of the legal health record. It is not the complete legal health record.[facility]
--- OUTSIDE RECORDS SUMMARY | 2024-05-06 16:31 | XMS_ITS | Encounter Summary ---
Author Organization [facility] Address [address] [place] [address] [place] [phone] Phone Care Team Providers Care Vulnerability Assessment Analyst Name Role Phone Quinton Callahan MD Primary Care Provider +1- [phone] Encounter Details Date Type Department Care Team (Late st Contact Info) Description 11/28/2023 Procedure Pass [facility] [address] [place] [address] Social History Tobacco Use Types Packs/Day Years [...] on filedocumented in this encounter Care Teams Vulnerability Assessment Analyst Relationship Specialty Start Date End Date Quinton Callahan MD [address] [place] [phone] PCP - General Medical Oncology 11/23/23 documented as of this encounter Additional Source Comments The information contained in this document represents components of the legal health record. It is not the complete legal health record.[facility]
--- OUTSIDE RECORDS SUMMARY | 2024-05-06 16:31 | XMS_ITS | Encounter Summary ---
Author Organization [facility] Address [address] [place] [address] [place] [phone] Phone Care Team Providers Care Hotbed Transfer Operator Name Role Phone Quinton Callahan MD Primary Care Provider +1- [phone] Encounter Details Date Type Department Care Team (Late st Contact Info) Description 11/28/2023 Procedure Pass [facility] [address] [place] [address] Social History Tobacco Use Types Packs/Day Years [...] on filedocumented in this encounter Care Teams Hotbed Transfer Operator Relationship Specialty Start Date End Date Quinton Callahan MD [address] [place] [address] PCP - General Medical Oncology 11/23/23 documented as of this encounter Additional Source Comments The information contained in this document represents components of the legal health record. It is not the complete legal health record.[facility]
--- OUTSIDE RECORDS SUMMARY | 2024-05-06 16:31 | XMS_ITS | Patient Health Record ---
Author Organization Quinton Callahan III, MD Address [address] [place] [address] Care Team Providers Care Paver Name Role Phone Quinton Callahan Primary Care Provider Allergies Allergen (clinical drug ingredient) Drug/Non Drug Allergy documented on EMR Reaction Allergy Type Onset Date Status No Known Drug Allergy Unknown Drug Allergy Active Results Component Value Reference Range Notes Routine Culture Reviewed date:09/30/2023 06:32:33 AM Interpretation: Performing Lab:[facility], [address] [place] [phone] Notes/Report: Routine Culture No growth after 2 days URINE DIP STICK Reviewed date:10/15/2023 11:04:15 AM Interpretation: Performing Lab: Notes/Report: SG 1.020 1.005 - 1.025 pH 5.0 5.0 - 9.0 HÉCTOR Negative Negative - NIT Negative Negative - PRO 15 Negative - Trace GLU Negative Negative - KET 5 Negative - UBG 0.2 0.1 - 1.8 SCARLET Negative 0.2 - 1.3 BLD Negative Negative - US VANCE complete Reviewed date:05/12/2023 06:32:45 AM Interpretation: Performing Lab: Notes/Report: [address] [address] Ultrasound Report Signed Patient: Zan Encinas MR#: [id number] : 1960 Acct:[id number] Age/Sex: 63 / M ADM Date: 05/10/23 Loc: HO.US Attending Dr: Bimal Knott MD Ordering Physician: Bimal Knott MD Date of Service: 05/10/23 Procedure(s): US VANCE complete Accession Number(s): [id number] cc: Quinton Callahan MD; Bimal Knott MD [...] in OV> 05/10/23 1114 DD/ 0949 TD/TT: Clerical Grader: [place] [address] Ultrasound Report Signed Patient: Zan Encinas MR#: [id number] : 1960 Acct:[id number] Age/Sex: 63 / M ADM Date: 05/10/23 Loc: .US Attending Dr: Bimal Knott MD Ordering Physician: Bimal Knott MD Date of Service: 05/10/23 Procedure(s): US VANCE complete Accession Number(s): [id number] cc: Quinton Callahan MD; Bimal Knott MD EXAMINATION: Noninvasive assessme nt of the bilateral lower extremities with ARTERIAL DUPLEX and ANKLE BRACHIAL INDICES (ABIs). CLINICAL INFORMATION: Peripheral vascular disease with claudication TECHNIQUE: Duplex Doppler techniques with waveform analysis and measurement of velocities in the bilateral common femoral, profunda femoris, superficial femoral, popliteal and tibial arteries were performed. Additionally, ankle pulse volume recordings, ankle pressure measurements and ank le brachial indices were obtained of the lower extremity arterial system bilaterally. The study was performed only at rest. COMPARISON: 03/24/2020 FINDINGS: DIRECT DUPLEX DOPPLE R FINDINGS: RIGHT LEG: Common femoral arter y: 145 cm/s, phasicity: Triphasic. Mild calcified plaque Profunda femoris art noemi: 130 cm/s, phasicity: Triphasic Superficial femoral artery [...] segment. 29.0 Cm/s, phasicity: Monophasic Posterior tibial art noemi: Proximal and mid segments are occluded with reconstituted flow i n the distal segment. Velocity measures 15.8 cm/s, phasicity: Monophasic Peroneal artery: 10. 9 cm/s, phasicity: Monophasic Anterior tibial jane ry: 22.5 cm/s, phasicity: Monophasic Dorsalis pedis arter y: Occluded LEFT LEG: Common femoral arter y: 117 cm/s, phasicity: Triphasic Profunda femoris art noemi: 163 cm/s, phasicity: Triphasic Superficial femoral artery (proximal): 148 cm/s, phasicity: Triphasic Superficial femoral artery (mid): 118 cm/s, phasicity: Triphasic Superficial femoral artery (distal): 126 cm/s, phasicity: Triphasic Popliteal artery: 96 cm/s, phasicity: Triphasic Posterior tibial art noemi: 17.3 cm/s, phasicity: Monophasic within the proximal segment. Mi d and distal segments are occluded Peroneal artery: 73. 1 cm/s, phasicity: Biphasic Anterior tibial jane ry: 70.8 cm/s, phasicity: Triphasic Dorsalis pedis arter y: 48.4 cm/s, phasicity: Monophasic ANKLE-BRACHIAL INDEX: Right: Nondiagnostic? Left: Nondiagnostic ANKLE PRESSURES: Right: PT inaudible, DP inaudible Left: PT?inaudible, DP?inaudible ANKLE PVR WAVEFORMS: Right: Abnormal Left: Abnormal U S/US VANCE complete IMPRESSION: Right leg: Stent in the distal superficial femoral artery is occluded with occlusion exten ding through the proximal popliteal artery. Reconstituted flow i n the distal popliteal artery. Markedly dampened arterial waveforms i n the below-knee runoff vessels with areas of occlusive changes in the posterior tibial and dorsalis pedis artery Left leg: Patent arterial flow within the left lower extremity except for occlusive change s in the mid to distal posterior tibial artery. This critical result was discussed with Dr. Payton at 1114 on 05/10/2023 and it was ascertained that the content and urgency of the report was understoo d at the time of direct communication. VANCE Reference: - >1.4 = calcified vessels - 0.9 - 1.4 = normal - no significant arterial disease - 0.7 - 0.89 = mild peripheral arterial disease - 0.51 - 0.69 = mode rate peripheral arterial disease - ? 0.50 = severe peripheral arterial disease - < .30 = critical arterial disease Dictated By: Coleman Chaidez MD Signed By: <Electronically signed by Coleman Chaidez MD in OV> 05/10/23 1114 DD/ 0949 TD/TT: Clerical Grader: US arterial duplex LE BI Reviewed date:05/12/2023 06:32:45 AM Interpretation: Performing Lab: Notes/Report: [address] [address] Ultrasound Report Signed Patient: Zan Encinas MR#: [id number] : 1960 Acct:[id number] Age/Sex: 63 / M ADM Date: 05/10/23 Loc: HO.US Attending Dr: Bimal Knott MD Ordering Physician: Bimal Knott MD Date of Service: 05/10/23 Procedure(s): US arterial duplex LE BI Accession Number(s): [id number] cc: Quinton Callahan MD; Hedy,Bimal T MD EXAMINATION: Noninvasive assessment of the bilateral [...] in OV> 05/10/23 1114 DD/ 0949 TD/TT: Clerical Grader: [place] [address] Ultrasound Report Signed Patient: Zan Encinas MR#: [id number] : 1960 Acct:[id number] Age/Sex: 63 / M ADM Date: 05/10/23 Loc: . Attending Dr: Bimal Knott MD Ordering Physician: Bimal Knott MD Date of Service: 05/10/23 Procedure(s): US arterial duplex LE BI Accession Number(s): [id number] cc: Quinton Callahan MD; Bimal Knott MD EXAMINATION: Noninvasive assessme nt of the bilateral lower extremities with ARTERIAL DUPLEX and ANKLE BRACHIAL INDICES (ABIs). CLINICAL INFORMATION: Peripheral vascular disease with claudication TECHNIQUE: Duplex Doppler techniques with waveform analysis and measurement of velocities in the bilateral common femoral, profunda femoris, superficial femoral, popliteal and tibial arteries were performed. Additionally, ankle pulse volume recordings, ankle pressure measurements and ank le brachial indices were obtained of the lower extremity arterial system bilaterally. The study was performed only at rest. COMPARISON: 03/24/2020 FINDINGS: DIRECT DUPLEX DOPPLE R FINDINGS: RIGHT LEG: Common femoral arter y: 145 cm/s, phasicity: Triphasic. Mild calcified plaque Profunda femoris art noemi: 130 cm/s, phasicity: Triphasic Superficial femoral artery [...] segment. 29.0 Cm/s, phasicity: Monophasic Posterior tibial art noemi: Proximal and mid segments are occluded with reconstituted flow i n the distal segment. Velocity measures 15.8 cm/s, phasicity: Monophasic Peroneal artery: 10. 9 cm/s, phasicity: Monophasic Anterior tibial jane ry: 22.5 cm/s, phasicity: Monophasic Dorsalis pedis arter y: Occluded LEFT LEG: Common femoral arter y: 117 cm/s, phasicity: Triphasic Profunda femoris art noemi: 163 cm/s, phasicity: Triphasic Superficial femoral artery (proximal): 148 cm/s, phasicity: Triphasic Superficial femoral artery (mid): 118 cm/s, phasicity: Triphasic Superficial femoral artery (distal): 126 cm/s, phasicity: Triphasic Popliteal artery: 96 cm/s, phasicity: Triphasic Posterior tibial art noemi: 17.3 cm/s, phasicity: Monophasic within the proximal segment. Mi d and distal segments are occluded Peroneal artery: 73. 1 cm/s, phasicity: Biphasic Anterior tibial jane ry: 70.8 cm/s, phasicity: Triphasic Dorsalis pedis arter y: 48.4 cm/s, phasicity: Monophasic ANKLE-BRACHIAL INDEX: Right: Nondiagnostic? Left: Nondiagnostic ANKLE PRESSURES: Right: PT inaudible, DP inaudible Left: PT?inaudible, DP?inaudible ANKLE PVR WAVEFORMS: Right: Abnormal Left: Abnormal U S/US arterial duplex LE BI IMPRESSION: Right leg: Stent in the distal superficial femoral artery is occluded with occlusion exten ding through the proximal popliteal artery. Reconstituted flow i n the distal popliteal artery. Markedly dampened arterial waveforms i n the below-knee runoff vessels with areas of occlusive changes in the posterior tibial and dorsalis pedis artery Left leg: Patent arterial flow within the left lower extremity except for occlusive change s in the mid to distal posterior tibial artery. This critical result was discussed with Dr. Payton at 1114 on 05/10/2023 and it was ascertained that the content and urgency of the report was understoo d at the time of direct communication. VANCE Reference: - >1.4 = calcified vessels - 0.9 - 1.4 = normal - no significant arterial disease - 0.7 - 0.89 = mild peripheral arterial disease - 0.51 - 0.69 = mode rate peripheral arterial disease - ? 0.50 = severe peripheral arterial disease - < .30 = critical arterial disease Dictated By: Coleman Chaidez MD Signed By: <Electronically signed by Coleman Chaidez MD in OV> 05/10/23 1114 DD/ 0949 TD/TT: Clerical Grader: Blood Urea Nitrogen Reviewed date:06/18/2023 01:31:54 PM Interpretation: Performing Lab:[facility], [address] [place] [phone] Notes/Report: Blood Urea Nitrogen 12 9-16 mg/dL Creatinine Reviewed date:06/18/2023 01:31:54 PM Interpretation: Performing Lab:[facility], [address] [place] [phone] Notes/Report: Creatinine 0.74 0.5-1.4 mg/dL Estimated Glomerular Filt Rate > 60 NOTE: For -[place] individuals, multiply the result by 1.210. Chronic Kidney Disease: Estimated GFR < 60 mL/min/1.73m2 Severe Kidney Disease: Estimated GFR < 15 mL/min/1.73m2 CT angio abd aorta runoff Reviewed date:07/03/2023 10:30:19 AM Interpretation: Performing Lab: Notes/Report: [address] [address] [address] Scan Report Signed Patient: Zan Encinas MR#: [id number] : 1960 Acct:[id number] Age/Sex: 63 / M ADM Date: 06/28/23 Loc: .CT Attending Dr: Bimal Knott MD Ordering Physician: Bimal Knott MD Date of Service: 06/28/23 Procedure(s): CT angio abd aorta runoff Accession Number(s): [id number] cc: Quinton Callahan MD; Bimal Knott MD STUDY PERFORMED: CTA ABDOMEN, PELVIS AND LOWER EXTREMITY RUNOFF WITH CONTRAST HISTORY: Reason for Exam I73.9 - Peripheral vascular disease, unspecified DESCRIPTION: Routine abdominal aorta and lower extremity runoff CTA protocol with contrast was performed. 100 mL of Omnipaque was administered. 3D POSTPROCESSING: Multiple 3-D angiographic images were processed from the initial data set by the [facility] under concurrent physician supervision. [...] in OV> 07/02/23 1003 DD/ 0900 TD/TT: Clerical Grader: [address] [address] [address] Scan Report Signed Patient: Zan Encinas MR#: [id number] : 1960 Acct:[id number] Age/Sex: 63 / M ADM Date: 06/28/23 Loc: HO.CT Attending Dr: Bimal Knott MD Ordering Physician: Bimal Knott MD Date of Service: 06/28/23 Procedure(s): CT ang io abd aorta runoff Accession Number(s): [id number] cc: Quinton Callahan MD; Bimal Knott MD STUDY PERFORMED: CTA ABDOMEN, PELVIS AND LOWER EXTREMITY RUNOFF WITH CONTRAST HISTORY: Reason for Exam I73. 9 - Peripheral vascular disease, unspecified DESCRIPTION: Routine abdominal ao rta and lower extremity runoff CTA protocol with contrast was perform ed. 100 mL of Omnipaque was administered. 3D POSTPROCESSING: Multiple 3-D angiographic images were processed from the initial data set by the [facility] under concurrent physician supervision. DOSE LOWERING TECHNIQUES: This CT examination was performed using dose optimization techniq ues as appropriate, variously including the following: - Automated exposure control - Adjustment of mA and/or kV according to patient size (this includes techniques or standardized protocols for targeted exams where dose is matched to indication/reason for exam; i.e. extremities or head) - Use of iterative reconstruction technique DLP: 733 mGycm. COMPARISON: Lower extremity dupl ex and ABIs 05/10/2023 FINDINGS: VASCULAR: ABDOMINAL AORTA: pat ent and normal in caliber RIGHT LOWER EXTREMITY: - Common Iliac Arter y: patent - Internal Iliac Art noemi: patent - External Iliac Art noemi: patent - Common Femoral Art noemi: patent - Profunda Femoral Artery: patent - Superficial Femora l Artery: Scattered calcific and fibrofatty plaque causing at most mild stenoses. - Popliteal Artery: Occluded stent. There is reconstitution of the distal popliteal artery. - Anterior Tibial Artery: Fibrofatty and calcific plaque throughout, but appears patent -Tibioperoneal trunk : patent - Posterior Tibial Artery: Fibrofatty and calcific plaque throughout, but appears patent - Peroneal Artery: Fibrofatty and calcific plaque throughout, but appears patent LEFT LOWER EXTREMITY: - Common Iliac Arter y: patent - Internal Iliac Art noemi: patent - External Iliac Art noemi: patent - Common Femoral Art noemi: patent - Profunda Femoral Artery: patent - Superficial Femora l Artery: patent - Popliteal Artery: Fibrofatty plaque causing 50% stenosis at the level of the joint space. - Anterior Tibial Artery: Multifocal fibrofatty and calcific plaque causing multifocal stenoses, but overall patent. -Tibioperoneal trunk : patent - Posterior Tibial Artery: Multifocal fibrofatty and calcific plaque causing multifocal stenoses, but overall patent. - Peroneal Artery: patent CELIOMESENTERIC ARTERIES: The celiac artery, SMA, and RONDA are patent RENAL ARTERIES: heart nt bilateral renal arteries NONVASCULAR: Lung Bases: The visualized lung bases are unremarkable. Liver and Biliary Tr ee: The liver is normal in size, shape, and attenuation. No foca l hepatic lesion or biliary ductal dilatation is present. Gallbladder: The gallbladder is unremarkable with no evidence of radiopaque gallstone s, gallbladder wall thickening, or obvious pericholecystic inflammatory changes. Pancreas: Unremarkable. Spleen: Unremarkable. Adrenal Glands: Unremarkable. Kidneys and Ureters: The kidneys are normal in size. Mild left-sided hydronephrosis. No hydroureter. Bladder: Unremarkable. Gastrointestinal Tra ct: The small and large bowel are unremarkable. The appendix is unremarkable. Abdominal Wall: Smal l fat-containing periumbilical hernia. Lymph Nodes: Normal. Pelvic Viscera: The prostate is enlarged. Osseous Structures: Unremarkable. C T/CT angio abd aorta runoff IMPRESSION: Vascular: Right lower extremity: Inflow: Patent Femoral-popliteal: Occluded popliteal artery stent, with reconstitution of the distal poplit eal artery Runoff: Multifocal disease within all 3 tibial arteries Left lower extremity: Inflow: Patent Femoral-popliteal: Fibrofatty plaque in the mid popliteal artery causing 50% stenosis at the level of the joint space Runoff: The peroneal artery is patent. Multifocal plaque within the anterior tibial jane ry and posterior tibial artery, which appear patent Nonvascular: Mild left-sided hydronephrosis, but no hydroureter Dictated By: Reymundo Matson MD Signed By: <Electronically signed by Reymundo Matson MD in OV> 07/02/23 1003 DD/ 0900 TD/TT: Clerical Grader: Complete Blood Count Auto Di ff Reviewed date:07/24/2023 09:31:57 AM Interpretation: Performing Lab:[facility], [address] [place] [phone] Notes/Report: White Blood Count 7.7 4.8-10.8 X10*3/uL [...] 0.0-0.2 /100WBC Neutrophils Absolute Auto 4.6 2.0-8.3 x10*3/uL Imm Gran Abs Auto 0.03 0.00-0.03 X10*3/uL Lymphocytes Absolute Auto 1.9 1.2-4.9 X10*3/uL Monocytes Absolute Auto 0.8 0.1-1.2 X10*3/uL Eosinophils Absolute Auto 0.2 0.0-0.4 X10*3/uL Basophils Absolute Auto 0.1 0.0-0.2 X10*3/uL NRBC Abs Auto 0.000 0.0-0.012 X10*3/uL Blood Urea Nitrogen Reviewed date:07/24/2023 09:31:57 AM Interpretation: Performing Lab:[address] [address] Notes/Report: Blood Urea Nitrogen 22 9-16 mg/dL Creatinine Reviewed date:07/24/2023 09:31:57 AM Interpretation: Performing Lab:[address] [address] Notes/Report: Creatinine 0.92 0.5-1.4 mg/dL Creatinine Clr Calc Pharmacy 87.8 eGFR (calculated from the MDRD study equation) and eCrCl (calculated from the Cockcroft-Gault equation) are based on different parameters and may not yield comparable results. If eCrCl result is absurd, please check patient's height/weight. Estimated Glomerular Filt Rate > 60 NOTE: For -[place] individuals, multiply the result by 1.210. Chronic Kidney Disease: Estimated GFR < 60 mL/min/1.73m2 Severe Kidney Disease: Estimated GFR < 15 mL/min/1.73m2 Type and Screen Reviewed date:08/04/2023 05:32:19 AM Interpretation: Performing Lab:[facility], [address] [place] [phone] Notes/Report: Spec expiration changed by BELLO on 08/03/23 Reason: PAT NURSING: Call Blood Bank (ext. [phone]) to band patient on admission. Type and Screen in effect until 2300 on 08/13/2023. Witnessed by HUSSEIS Blood Type OP Antibody Screen NEGATIVE XR chest 2V Reviewed date:08/28/2023 05:01:16 AM Interpretation: Performing Lab: Notes/Report: [address] [address] XRay Report Signed Patient: Zan Encinas MR#: [id number] : 1960 Acct:[id number] Age/Sex: 63 / M ADM Date: 08/07/23 Loc: MIAN Attending Dr: Aleksadnra Archuleta GLASS ETCHER Ordering Physician: Aleksandra Archuleta NP Date of Service: 08/07/23 Procedure(s): XR chest 2V Accession Number(s): [id number] cc: Quinton Callahan MD; Aleksandra Archuleta GLASS ETCHER EXAMINATION: XR CHEST CLINICAL INFORMATION: Nicotine, cigarettes [...] signed by Yudy Simon MD in OV> 08/20/[address] DD/ 1250 TD/TT: Clerical Grader: [address] [address] XRay Report Signed Patient: Zan Encinas MR#: [id number] : 1960 Acct:[id number] Age/Sex: 63 / M ADM Date: 08/07/23 Loc: HO.XRAY Attending Dr: Apolonia Archuleta NP Ordering Physician: Aleksandra Archuleta NP Date of Service: 08/07/23 Procedure(s): XR tory st 2V Accession Number(s): [id number] cc: Quinton Callahan MD; Aleksandra Archuleta NP EXAMINATION: XR CHEST CLINICAL INFORMATION: Nicotine, cigarettes uncomplicated. COMPARISON: October 15, 2018 TECHNIQUE: 2 views of the chest were obtained. FINDINGS: The lungs are well inflated. There is no gross pneumothorax. Heart size is normal. No pleural effusion. No new focal consolidation to suggest pneumonia. Degenerative changes in the thoracic spine. X R/XR chest 2V IMPRESSION: No evidence of pneumonia. 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 Dictated By: Yudy Simon MD Signed By: <Electronically signed by Yudy Simon MD in OV> 08/20/[address] DD/ 1250 TD/TT: Clerical Grader: JESUS garcia SPECT rest & str Reviewed date:08/11/2023 05:22:23 AM Interpretation: Performing Lab: Notes/Report: [address] [address] Nuclear Medicine Report Signed Patient: Zan Encinas MR#: [id number] : 1960 Acct:[id number] Age/Sex: 63 / M ADM Date: 08/09/23 Loc: HO.CARD Attending Dr: Khalif Ferrer MD Ordering Physician: Khalif Ferrer MD Date of Service: 08/09/23 Procedure(s): NM gosia perf SPECT rest str Accession Number(s): [id number] cc: Quinton Callahan MD; Khalif Ferrer MD [...] in OV> 08/10/23 1257 DD/ 1120 TD/TT: Clerical Grader: [address] [address] Nuclear Medicine Report Signed Patient: Zan Encinas MR#: [id number] : 1960 Acct:[id number] Age/Sex: 63 / M ADM Date: 08/09/23 Loc: MANUELA Attending Dr: Khalif Ferrer MD Ordering Physician: Khalif Ferrer MD Date of Service: 08/09/23 Procedure(s): NM gosia perf SPECT rest str Accession Number(s): [id number] cc: Quinton Callahan MD; Khalif Ferrer MD Lexiscan Myocardial perfusion study Indication: Preoperative cardiovascular evaluation Technique: The patient was brou ght in for a Lexiscan perfusion study on 08/10/2023 and was injected 0.4 mg of Lexiscan intravenously. Within a minute of this injection 30 mC i of sestamibi was given intravenously. Images were obtained using the Syncurity gamma camera interlaced with the gating device. Images were obtained in supine position. Resting perfusion st udy was performed on 08/09/2023. Patient was administered 30mCi o f sestamibi intravenously at rest. Images were then obtained in supine position. Images were processe d with the software and compared side to side in short axis, horizont al long axis and vertical long axis views. Total DLP 92mGy-cm. Findings: Raw acquisition reviewed. Arms by the patient's side. The stress perfusion study showed diminished tracer uptake in the distal part of anter ior wall and adjacent apex. No major change with CT attenuation correcti on The gated study shows low normal LV systolic function with calcul ated LVEF of 52%. LV cavity is normal in size. The gated study shows diminished thickening/contractility in the apical part of anterior wall. Resting study shows diminished tracer uptake along the anterior wall, septum as well as pa rts of inferior wall. There is overall improved tracer uptake with C T attenuation correction suggestive of components of attenuation artif act. Gating at rest reveals possible diminished contractility in the distal anterior wall with LVEF of 52%. The findings are consistent with fixed distal anterior wall perfusion defect. N M/NM gosia perf SPECT rest str Impression: 1. Myocardial perfus ion imaging study shows fixed distal anterior defect; possible shai or infarct. Cannot exclude findings of the left bundle branch block. 2. Gated LVEF 52% du ring stress and rest. 3. Transient ischemi c dilatation not present. EKG component of the test reported separately. Dictated By: Delon Trejo MD Signed By: <Electronically signed by Delon Trejo MD in OV> 08/10/23 1257 DD/ 1120 TD/TT: Clerical Grader: US venous duplex LE RT Reviewed date:08/11/2023 05:22:23 AM Interpretation: Performing Lab: Notes/Report: [address] [address] Ultrasound Report Signed Patient: Zan Encinas MR#: [id number] : 1960 Acct:[id number] Age/Sex: 63 / M ADM Date: 08/10/23 Loc: HO.US Attending Dr: Bimal Knott MD Ordering Physician: Bimal Knott MD Date of Service: 08/10/23 Procedure(s): US venous duplex LE RT Accession Number(s): [id number] cc: Quinton Callahan MD; Bimal Knott MD [...] in OV> 08/10/23 1857 DD/ 1336 TD/TT: Clerical Grader: [place] [address] Ultrasound Report Signed Patient: Zan Encinas MR#: [id number] : 1960 Acct:[id number] Age/Sex: 63 / M ADM Date: 08/10/23 Loc: . Attending Dr: Bimal Knott MD Ordering Physician: Bimal Knott MD Date of Service: 08/10/23 Procedure(s): US lazaro ous duplex LE RT Accession Number(s): [id number] cc: Quinton Callahan MD; Bimal Knott MD EXAMINATION: US LOWER EXTREMITY V EIN MAPPING, RIGHT CLINICAL INDICATION: Peripheral vascular disease COMPARISON: None. TECHNIQUE: Color flow triplex imaging and compression Doppler was performed to evaluate the superfi cial systems of the right lower extremity. FINDINGS: GREAT SAPHENOUS VEIN: Saphenofemoral Junct ion: 0.5 cm; depth: 1.5cm Proximal Thigh: 0.3 cm; depth: 1.0cm Mid Thigh: 0.2 cm; depth: 1.0cm Above Knee: 0.3 cm; depth: 1.1cm Duplicated GSV above knee: 0.1 cm; depth: 1.1cm At Knee: 0.3 cm; dep th: 0.7cm Below Knee: 0.2 cm; depth: 0.5cm Mid Calf: 0.1 cm; de pth: 0.6cm Ankle: 0.2 cm; depth : 0.8cm SMALL SAPHENOUS VEIN: Saphenopopliteal Junction: 0.3 cm; depth: 1.5cm Proximal: 0.2 cm; de pth 0.7cm Mid: 0.3cm; depth 0.4cm Distal: 0.2 cm; dept h 0.4cm U S/US venous duplex LE RT IMPRESSION: Right lower extremit y venous mapping. Patent right GSV with a duplicated portion a minnie the knee. Dictated By: Verena Marinelli MD Signed By: <Electronically signed by Verena Marinelli MD in OV> 08/10/23 1857 DD/ 1336 TD/TT: Research Environmental Scientist ist: PN Complete Blood Count no Diff Reviewed date:08/16/2023 09:15:46 PM Interpretation: Performing Lab:[facility], [address] [place] [phone] Notes/Report: White Blood Count 8.5 4.8-10.8 X10*3/uL [...] INR Reviewed date:08/16/2023 09:15:46 PM Interpretation: Performing Lab:[facility], [address] [place] [phone] Notes/Report: Prothrombin Time 11.2 11.1-13.3 [employer] [...] Time Reviewed date:08/16/2023 09:15:46 PM Interpretation: Performing Lab:[facility], [address] [place] [phone] Notes/Report: Partial Thromboplastin Time 26.7 26.0-36.8 SEC For information regarding the monitoring of direct thrombin inhibitors, please refer to Pharmacy. Basic Metabolic Panel Reviewed date:08/16/2023 09:15:46 PM Interpretation: Performing Lab:[facility], [address] [place] [phone] Notes/Report: Sodium 140 135-145 mmol/L Potassium 4.1 [...] Glomerular Filt Rate > 60 NOTE: For -Tanzanian individuals, multiply the result by 1.210. Chronic Kidney Disease: Estimated GFR < 60 mL/min/1.73m2 Severe Kidney Disease: Estimated GFR < 15 mL/min/1.73m2 Glucose Random 103 60-115 mg/dL Calcium 9.4 8.4-10.2 mg/dL Complete Blood Count Auto Di ff Reviewed date:08/16/2023 09:15:46 PM Interpretation: Performing Lab:[facility], [address] [place] [phone] Notes/Report: White Blood Count 10.6 4.8-10.8 X10*3/uL [...] 0.0-0.2 /100WBC Neutrophils Absolute Auto 7.7 2.0-8.3 x10*3/uL Imm Gran Abs Auto 0.04 0.00-0.03 X10*3/uL Lymphocytes Absolute Auto 1.5 1.2-4.9 X10*3/uL Monocytes Absolute Auto 1.3 0.1-1.2 X10*3/uL Eosinophils Absolute Auto 0.0 0.0-0.4 X10*3/uL Basophils Absolute Auto 0.0 0.0-0.2 X10*3/uL NRBC Abs Auto 0.000 0.0-0.012 X10*3/uL Basic Metabolic Panel Reviewed date:08/16/2023 09:15:46 PM Interpretation: Performing Lab:[facility], [address] [place] [phone] Notes/Report: Sodium 140 135-145 mmol/L Potassium 3.6 [...] Glomerular Filt Rate > 60 NOTE: For -Tanz[place] individuals, multiply the result by 1.210. Chronic Kidney Disease: Estimated GFR < 60 mL/min/1.73m2 Severe Kidney Disease: Estimated GFR < 15 mL/min/1.73m2 Glucose Random 113 60-115 mg/dL Calcium 8.5 8.4-10.2 mg/dL Phosphorus Reviewed date:08/16/2023 09:15:46 PM Interpretation: Performing Lab:[address] [phone] Notes/Report: Phosphorus 2.4 2.7-4.5 mg/dL Magnesium Reviewed date:08/16/2023 09:15:46 PM Interpretation: Performing Lab:[facility], [address] [place] [phone] Notes/Report: Magnesium 2.0 1.6-2.6 mg/dL Complete Blood Count Auto Di ff Reviewed date:08/16/2023 09:15:45 PM Interpretation: Performing Lab:[facility], [address] [place] [phone] Notes/Report: White Blood Count 10.8 4.8-10.8 X10*3/uL [...] 0.0-0.2 /100WBC Neutrophils Absolute Auto 7.7 2.0-8.3 x10*3/uL Imm Gran Abs Auto 0.05 0.00-0.03 X10*3/uL Lymphocytes Absolute Auto 1.6 1.2-4.9 X10*3/uL Monocytes Absolute Auto 1.3 0.1-1.2 X10*3/uL Eosinophils Absolute Auto 0.1 0.0-0.4 X10*3/uL Basophils Absolute Auto 0.0 0.0-0.2 X10*3/uL NRBC Abs Auto 0.000 0.0-0.012 X10*3/uL Basic Metabolic Panel Reviewed date:08/16/2023 09:15:45 PM Interpretation: Performing Lab:[address] [phone] Notes/Report: Sodium 137 135-145 mmol/L Potassium 3.6 [...] Glomerular Filt Rate > 60 NOTE: For -Tanz[place] individuals, multiply the result by 1.210. Chronic Kidney Disease: Estimated GFR < 60 mL/min/1.73m2 Severe Kidney Disease: Estimated GFR < 15 mL/min/1.73m2 Glucose Random 117 60-115 mg/dL Calcium 9.0 8.4-10.2 mg/dL Phosphorus Reviewed date:08/16/2023 09:15:45 PM Interpretation: Performing Lab:[address] [address] Notes/Report: Phosphorus 2.1 2.7-4.5 mg/dL Magnesium Reviewed date:08/16/2023 09:15:46 PM Interpretation: Performing Lab:[address] [address] Notes/Report: Magnesium 2.0 1.6-2.6 mg/dL Gram stain Reviewed date:09/30/2023 06:32:33 AM Interpretation: Performing Lab:[address] [phone] Notes/Report: Gram stain Gram stain results: Gram stain No polys Gram stain 1+ epithelial cells Gram stain No organisms seen CT chest wo con Reviewed date:11/15/2023 07:43:48 PM Interpretation: Performing Lab: Notes/Report: [address] [place] [address] CT Scan Report Signed with Carlos Patient: Zan Encinas MR#: [id number] : 1960 Acct:[id number] Age/Sex: 63 / M ADM Date: 09/26/23 Loc: HO.CT Attending Dr: Aleksandra Archuleta NP Ordering Physician: Aleksandra Archuleta NP Date of Service: 09/26/23 Procedure(s): CT chest wo IV con Accession Number(s): [id number] cc: Quinton Callahan MD; Aleksandra Archuleta NP ADDENDUM ADDENDUM #1 Results Acknowledgement: Confirmed with Lauren Mejía MA, on 11/06/2023 at 11:03 AM. Report was received and forwarded to Aleksandra Archuleta NP. Rosa Maria Rasheed, 11/06/2023 11:09 AM Electronically signed by: Stephanie Courtney MD 11/12/2023 06:11 PM EDT Addendum Dictated By: Stephanie Courtney MD Addendum Signed By: <Electronically signed by Stephanie Courtney MD in OV> 11/12/231810 Addendum Cosigned By: DD/ TD/TT: 09/26/23 EXAMINATION: CT CHEST WITHOUT CONTRAST CLINICAL INFORMATION: Nicotine dependence, uncomplicated COMPARISON: 08/07/2023, 06/28/23 TECHNIQUE: Multidetector volumetric CT imaging of the chest was done. Axial MIP volume rendering provided. Sagittal and coronal reformatted images were obtained. This CT examination was performed using dose optimization techniques as appropriate, variously including the following: *Automated exposure control *Adjustment of mA and/or kV according to patient size (this includes techniques or standardized protocols for targeted exams where dose is matched to indication/reason for exam; i.e. extremities or head) *Use of iterative reconstruction technique DLP: 204 mGy-cm FINDINGS: LUNGS: Central airways are patent. No suspicious pulmonary nodule. PLEURA: No pleural effusion. MEDIASTINUM: No cardiomegaly. Aorta and pulmonary artery are normal in caliber. No mediastinal adenopathy. Lack of IV contrast suspension for hilar adenopathy. CORONARY ARTERY CALCIFICATION: No coronary artery calcification appreciated. CHEST WALL/AXILLA: No axillary or internal mammary lymphadenopathy. UPPER ABDOMEN: There is large left hydronephrosis versus left renal cyst partially visualized. OSSEOUS STRUCTURES: Degenerative changes of the spine. CT/CT chest wo IV con IMPRESSION: * No suspicious pulmonary nodule. * Large left hydronephrosis versus left renal cyst partially visualized. This exam was submitted to the interpreting radiologist for interpretation on 11/05/2023 5:46 PM CDT. The report will be called to the ordering clinician by a [facility] Physician Financial Intern. Electronically signed by: Stephanie Courtney MD 11/05/2023 06:52 PM EDT RP Dictated By: Stephanie Courtney MD Signed By: <Electronically signed by Stephanie Courtney MD in OV> 11/05/23 1852 DD/ 0733 TD/TT: 09/26/23 0758 Clerical Grader: [address] [address] [address] Scan Report Signed with Addenda Patient: Zan Encinas MR#: [id number] : 1960 Acct:[id number] Age/Sex: 63 / M ADM Date: 09/26/23 Loc: HO.CT Attending Dr: Apolonia Archuleta NP Ordering Physician: Aleksandra Archuleta NP Date of Service: 09/26/23 Procedure(s): CT tory st wo IV con Accession Number(s): [id number] cc: Quinton Callahan MD; Aleksandra Archuleta NP ADDENDUM ADDENDUM #1 Results Acknowledgement: Confirmed with Lauren Mejía MA, on 11/06/2023 at 11:03 AM. Report was received and forward ed to Aleksandra Archuleta NP. Rosa Maria Rasheed, 11/06/2023 11:09 AM Electronically ivania d by: Stephanie Courtney MD 11/12/2023 06:11 PM EDT RP Addendum Dictated By : Stephanie Courtney MD Addendum Signed By: <Electronically signed by Stephanie Courtney MD in OV> 11/12/231810 Addendum Cosigned By: DD/ TD/TT: 09/26/23 EXAMINATION: CT CHEST WITHOUT CONTRAST CLINICAL INFORMATION: Nicotine dependence, uncomplicated COMPARISON: 08/07/2023, 06/28/23 TECHNIQUE: Multidetector volume tric CT imaging of the chest was done. Axial MIP volume rendering provided. Sagittal and coronal reformatted images were obtained. This CT examination was performed using dose optimization techniques as appropriate, various ly including the following: *Automated exposure control *Adjustment of mA an d/or kV according to patient size (this includes techniques or standardized protocols for targeted exams where dose is matched to indication/reason for exam; i.e. extremities or head) *Use of iterative reconstruction technique DLP: 204 mGy-cm FINDINGS: LUNGS: Central airwa ys are patent. No suspicious pulmonary nodule. PLEURA: No pleural effusion. MEDIASTINUM: No cardiomegaly. Aorta and pulmonary artery are normal in caliber. No mediasti nal adenopathy. Lack of IV contrast suspension for hilar adenopathy. CORONARY ARTERY CALCIFICATION: No coronary artery calcification appreciated. CHEST WALL/AXILLA: N o axillary or internal mammary lymphadenopathy. UPPER ABDOMEN: There is large left hydronephrosis versus left renal cyst partially visualized. OSSEOUS STRUCTURES: Degenerative changes of the spine. C T/CT chest wo IV con IMPRESSION: * No suspicious pulmonary nodule. * Large left hydronephrosis versus left renal cyst partially visualized. This exam was submit eliezer to the interpreting radiologist for interpretation on 11/05/2023 5:46 PM CDT. The report will be called to the ordering clinician by a [facility] Phys[facility] Financial Intern. Electronically ivania d by: Stephanie Courtney MD 11/05/2023 06:52 PM EDT Dictated By: Stephanie Courtney MD Signed By: <Electronically signed by Stephanie Courtney MD in OV> 11/05/231851 DD/ TD/TT: 09/26/23 0758 Clerical Grader: Complete Blood Count Auto Di ff Reviewed date:10/02/2023 07:28:20 AM Interpretation: Performing Lab:[facility], [address] [place] [phone] Notes/Report: White Blood Count 11.0 4.8-10.8 X10*3/uL [...] 0.0-0.2 /100WBC Neutrophils Absolute Auto 7.7 2.0-8.3 x10*3/uL Imm Gran Abs Auto 0.06 0.00-0.03 X10*3/uL Lymphocytes Absolute Auto 2.1 1.2-4.9 X10*3/uL Monocytes Absolute Auto 0.9 0.1-1.2 X10*3/uL Eosinophils Absolute Auto 0.2 0.0-0.4 X10*3/uL Basophils Absolute Auto 0.1 0.0-0.2 X10*3/uL NRBC Abs Auto 0.000 0.0-0.012 X10*3/uL Erythrocyte Sedimentation Ra te Reviewed date:10/02/2023 07:28:20 AM Interpretation: Performing Lab:[address] [address] Notes/Report: Erythrocyte Sedimentation Rate 2 0-15 MM/HR Patients with polycythemia and many hemoglobin abnormalities may have depressed sed rates whereas patients with anemia may have elevated sed rates. Prothrombin Time INR Reviewed date:10/02/2023 07:28:20 AM Interpretation: Performing Lab:[facility], [address] [place] [phone] Notes/Report: Prothrombin Time 11.2 11.1-13.3 SEC INTERNATIONAL [...] 2.5 - 3.5 Partial Thromboplastin Time Reviewed date:10/02/2023 07:28:20 AM Interpretation: Performing Lab:[address] [address] Notes/Report: Partial Thromboplastin Time 29.0 26.0-36.8 SEC For information regarding the monitoring of direct thrombin inhibitors, please refer to Pharmacy. Comprehensive Met. Panel Reviewed date:10/02/2023 07:28:20 AM Interpretation: Performing Lab:[facility], [address] [place] [phone] Notes/Report: Sodium 141 135-145 mmol/L Potassium 3.9 [...] Glomerular Filt Rate > 60 NOTE: For -Tanz[place] individuals, multiply the result by 1.210. Chronic [...] Phosphatase 77 39-117 U/L C Reactive Protein Reviewed date:10/02/2023 07:28:20 AM Interpretation: Performing Lab:[facility], [address] [place] [phone] Notes/Report: C Reactive Protein < 0.04 < or = 0.50 mg/dL US venous duplex LE RT Reviewed date:10/02/2023 07:28:20 AM Interpretation: Performing Lab: Notes/Report: [address] [address] Ultrasound Report Signed Patient: Zan Encinas MR#: [id number] : 1960 Acct:[id number] Age/Sex: 63 / M ADM Date: 10/01/23 Loc: .ED Attending Dr: Ordering Physician: Gt Cruz Date of Service: 10/01/23 Procedure(s): US venous duplex LE RT Accession Number(s): [id number] cc: Gt Cruz; Quinton Callahan MD EXAMINATION: [...] MD Signed By: <Electronically signed by Elder iGl MD in OV> 10/01/231949 DD/ 43 TD/TT: Clerical Grader: [place] [address] Ultrasound Report Signed Patient: Zan Encinas MR#: [id number] : 1960 Acct:[id number] Age/Sex: 63 / M ADM Date: 10/01/23 Loc: HO.ED Attending Dr: Ordering Physician: Gt Cruz Date of Service: 10/01/23 Procedure(s): US lazaro ous duplex LE RT Accession Number(s): [id number] cc: Gt Cruz; Quinton Callahan MD EXAMINATION: US VENOUS ULTRASOUND WITH DOPPLER LOWER EXTREMITY, RIGHT CLINICAL INFORMATION: Redness and edema COMPARISON: None available. TECHNIQUE: Ultrasound of the de ep veins is performed from the hip to the calf with compression sonograp hy and color and pulse Doppler assessment. Spectral analysis with color- flow imaging is performed. FINDINGS: There is normal veno us compression and respiratory variation and augmented flow. The visualized common femoral vein, superficial femoral vein, profunda femor al vein, popliteal vein, and the trifurcation region shows no evid ence of deep venous thrombosis. There is no significant poplitea l fossa cyst. There is a complex cystic structure in the proximal to m id medial calf again seen. This currently measures 5.1 x 2.5 x 3.2 cm i n size. There is surrounding edema. If the patient's symptoms persist, followup ultrasound in 5 days 7 days might be of value to exclude proximal propagation from a non-visualized calf vein. U S/US venous duplex LE RT IMPRESSION: No DVT demonstrated in the right lower extremity. 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 This was noted on the prior study as well and appears similar to that size. Dictated By: Elder Gil MD Signed By: <Electronically signed by Elder Gil MD in OV> 10/01/231949 DD/ 43 TD/TT: Research Environmental Scientist ist: [place] XR tibia fibula RT 2V Reviewed date:10/02/2023 07:28:20 AM Interpretation: Performing Lab: Notes/Report: [address] [address] XRay Report Signed Patient: Zan Encinas MR#: [id number] : 1960 Acct:[id number] Age/Sex: 63 / M ADM Date: 10/01/23 Loc: HO.ED Attending Dr: Ordering Physician: Gt Cruz Date of Service: 10/01/23 Procedure(s): XR tibia fibula RT 2V Accession Number(s): [id number] cc: Gt Cruz; Quinton Callahan MD EXAMINATION: [...] MD in OV> 10/01/231848 DD/ 58 TD/TT: Clerical Grader: JOE [address] [address] XRay Report Signed Patient: Zan Encinas MR#: [id number] : 1960 Acct:[id number] Age/Sex: 63 / M ADM Date: 10/01/23 Loc: HO.ED Attending Dr: Ordering Physician: Gt Cruz Date of Service: 10/01/23 Procedure(s): XR tib ia fibula RT 2V Accession Number(s): [id number] cc: Gt Cruz; Quinton Callahan MD EXAMINATION: XR foot RT 2V, XR tibia fibula RT 2V INDICATION: redness. osteo? COMPARISON: No perti nent prior studies are currently available for comparison. TECHNIQUE: 2 views t he right tibia and fibula and 3 views of the right foot FINDINGS: Vascular surgical clips are seen. Bones are normal anatomic alignment with no ac andrea fracture or dislocation. No bony destructive lesions. Soft tissue swelling diffusely throughout the tibia and right ankle. Right foot: Degenera tive changes first MTP joint. Bones are normal anatomic alignment w ith no acute fracture or dislocation seen. Diffuse soft tissue swelling is seen more so along the midfoot to forefoot. X R/XR tibia fibula RT 2V IMPRESSION: Diffuse soft tissue swelling but no acute fracture or dislocation. No bony destructive lesions. Vascular surgical clips are seen. Dictated By: Elder Gil MD Signed By: <Electronically signed by Elder Gil MD in OV> 10/01/231848 DD/ 58 TD/TT: Research Environmental Scientist ist: JOE XR foot RT 2V Reviewed date:10/02/2023 07:28:20 AM Interpretation: Performing Lab: Notes/Report: [address] [address] XRay Report Signed Patient: Zan Encinas MR#: [id number] : 1960 Acct:[id number] Age/Sex: 63 / M ADM Date: 10/01/23 Loc: HO.ED Attending Dr: Ordering Physician: Gt Cruz Date of Service: 10/01/23 Procedure(s): XR foot RT 2V Accession Number(s): [id number] cc: Gt Cruz; Quinton Callahan MD EXAMINATION: [...] MD in OV> 10/01/231848 DD/ 58 TD/TT: Clerical Grader: [place] [address] XRay Report Signed Patient: Zan Encinas MR#: [id number] : 1960 Acct:[id number] Age/Sex: 63 / M ADM Date: 10/01/23 Loc: HO.ED Attending Dr: Ordering Physician: Gt Cruz Date of Service: 10/01/23 Procedure(s): XR chito t RT 2V Accession Number(s): [id number] cc: Gt Cruz; Quinton Callahan MD EXAMINATION: XR foot RT 2V, XR tibia fibula RT 2V INDICATION: redness. osteo? COMPARISON: No perti nent prior studies are currently available for comparison. TECHNIQUE: 2 views t he right tibia and fibula and 3 views of the right foot FINDINGS: Vascular surgical clips are seen. Bones are normal anatomic alignment with no ac andrea fracture or dislocation. No bony destructive lesions. Soft tissue swelling diffusely throughout the tibia and right ankle. Right foot: Degenera tive changes first MTP joint. Bones are normal anatomic alignment w ith no acute fracture or dislocation seen. Diffuse soft tissue swelling is seen more so along the midfoot to forefoot. X R/XR foot RT 2V IMPRESSION: Diffuse soft tissue swelling but no acute fracture or dislocation. No bony destructive lesions. Vascular surgical clips are seen. Dictated By: Elder Gil MD Signed By: <Electronically signed by Elder Gil MD in OV> 10/01/231848 DD/ 58 TD/TT: Research Environmental Scientist ist: MO Lactic Acid Reviewed date:10/02/2023 07:28:20 AM Interpretation: Performing Lab:[address] [address] Notes/Report: Lactic Acid 0.7 0.5-2.0 mmol/L Blood Culture (First) Reviewed date:10/14/2023 07:03:40 AM Interpretation: Performing Lab:[address] [address] Notes/Report: Blood Culture (First) No growth after 5 days. Blood Culture (Second) Reviewed date:10/14/2023 07:03:40 AM Interpretation: Performing Lab:[address] [address] Notes/Report: Blood Culture (Second) No growth after 5 days. Complete Blood Count no Diff Reviewed date:10/04/2023 06:10:55 AM Interpretation: Performing Lab:[address] [address] Notes/Report: White Blood Count 6.5 4.8-10.8 X10*3/uL Red Blood Count 4.01 4.60-5.80 X10*6/uL Hemoglobin 13.6 14.0-18.0 g/dl Hematocrit 40.2 42.0-52.0 % Mean Corpuscular Volume 100.2 80.0-98.0 fL Mean Corpuscular Hemoglobin 33.9 27.0-33.0 pg Mean Corpuscular HGB Conc 33.8 31.0-36.0 g/dl Red Cell Distribution Width 11.8 11.0-16.0 % Platelet Count 215 160-400 X10*3/uL Mean Platelet Volume 10.0 9.4-12.4 fL NRBC Pct Auto 0.0 0.0-0.2 /100WBC NRBC Abs Auto 0.000 0.0-0.012 X10*3/uL Comprehensive Met. Panel Reviewed date:10/04/2023 06:10:55 AM Interpretation: Performing Lab:[address] [address] Notes/Report: Sodium 140 135-145 mmol/L Potassium 4.0 3.3-5.1 mmol/L Chloride 108 96-108 mmol/L Carbon Dioxide 26 22-29 mmol/L Anion Gap 10 12-20 Blood Urea Nitrogen 15 9-16 mg/dL Creatinine 0.85 0.5-1.4 mg/dL Creatinine Clr Calc Pharmacy 95.0 eGFR (calculated from the MDRD study equation) and eCrCl (calculated from the Cockcroft-Gault equation) are based on different parameters and may not yield comparable results. If eCrCl result is absurd, please check patient's height/weight. Estimated Glomerular Filt Rate > 60 NOTE: For -Tanzanian individuals, multiply the result by 1.210. Chronic Kidney Disease: Estimated GFR < 60 mL/min/1.73m2 Severe Kidney Disease: Estimated GFR < 15 mL/min/1.73m2 Glucose Random 99 60-115 mg/dL Calcium 9.0 8.4-10.2 mg/dL Bilirubin Total 0.4 0.0-1.0 mg/dL Aspartate Amino Transferase 21 5-37 U/L Alanine Aminotransferase 26 0-40 U/L Total Protein 5.2 6.5-8.0 g/dL Albumin Level 3.3 3.5-5.0 g/dL Alkaline Phosphatase 55 39-117 U/L Basic Metabolic Panel Fastin g Reviewed date:10/04/2023 06:10:55 AM Interpretation: Performing Lab:[facility], [address] [place] [phone] Notes/Report: Glucose Fasting 100 60-99 mg/dL A fasting glucose from 100-125 mg/dl is considered impaired (pre-diabetes). Vancomycin Random Reviewed date:10/04/2023 06:10:55 AM Interpretation: Performing Lab:[facility], [address] [place] [phone] Notes/Report: Vancomycin Random 9.5 15-20 mcg/mL US arterial duplex LE RT Reviewed date:11/15/2023 07:43:48 PM Interpretation: Performing Lab: Notes/Report: [address] [address] Ultrasound Report Signed Patient: Zan Encinas MR#: [id number] : 1960 Acct:[id number] Age/Sex: 63 / M ADM Date: 11/01/23 Loc: .US Attending Dr: Bimal Knott MD Ordering Physician: Bimal Knott MD Date of Service: 11/01/23 Procedure(s): US arterial duplex LE RT Accession Number(s): [id number] cc: Quinton Callahan MD; Bimal Knott MD EXAMINATION: NONINVASIVE ASSESSMENT OF THE ARTERIES OF THE RIGHT LOWER EXTREMITY INTERPRETING VASCULAR INTERVENTIONAL RADIOLOGIST: Frankie Jimenez MD CLINICAL INFORMATION: Peripheral vascular disease. Evaluate right distal femoral to below the knee bypass graft. TECHNIQUE: Right lower extremity duplex ultrasound was performed with velocity measurements and waveform analysis in the common femoral arteries, profunda femoris arteries, proximal mid and distal superficial femoral arteries, popliteal arteries and tibial vessels. Patient's bypass graft was also examined. This study was performed only at rest. COMPARISON: CT a abdomen and pelvis with bilateral runoff 06/28/2023 Lower extremity arterial duplex 05/10/2023 FINDINGS: Velocities in cm/sec and phasicity as well as the presence of plaque are reported below. RIGHT LEG: Common Femoral: 220, triphasic Profunda Femoris: 252, triphasic Proximal SFA: 213, triphasic Mid SFA: 107, monophasic Distal SFA: Occluded Popliteal: Occluded Tibial: Occluded Distal femoral to [id number] bypass graft: Occluded There is a large complex multiseptated cystic collection seen in the proximal calf US/US arterial duplex LE RT IMPRESSION: 1. There is occlusion of the distal SFA and popliteal artery with a distal femoral to [id number] bypass graft which is also occluded. 2. There is a large multiseptated cystic collection in the proximal calf. Electronically signed by: Frankie Jimenez MD 11/01/2023 04:34 PM EDT RP Dictated By: Frankie Jimenez MD Signed By: <Electronically signed by Frankie Jimenez MD in OV> 11/01/23 1634 DD/ 1313 TD/TT: 11/01/23 1400 Clerical Grader: [place] [address] Ultrasound Report Signed Patient: Zan Encinas MR#: [id number] : 1960 Acct:[id number] Age/Sex: 63 / M ADM Date: 11/01/23 Loc: . Attending Dr: Bimal Knott MD Ordering Physician: Bimal Knott MD Date of Service: 11/01/23 Procedure(s): US arterial duplex LE RT Accession Number(s): [id number] cc: Quinton Callahan MD; Bimal Knott MD EXAMINATION: NONINVASIVE ASSESSME NT OF THE ARTERIES OF THE RIGHT LOWER EXTREMITY INTERPRETING VASCULA R INTERVENTIONAL RADIOLOGIST: Frankie Jimenez MD CLINICAL INFORMATION: Peripheral vascular disease. Evaluate right distal femoral to below the knee bypass graft. TECHNIQUE: Right lower extremit y duplex ultrasound was performed with velocity measurements and waveform analysis in the common femoral arteries, profunda femoris arteries, proximal mid and distal superficial femoral arteries, popliteal arteries and tibial vessels. Patient's bypass graft was also examined. T his study was performed only at rest. COMPARISON: CT a abdomen and pel vis with bilateral runoff 06/28/2023 Lower extremity jane rial duplex 05/10/2023 FINDINGS: Velocities in cm/sec and phasicity as well as the presence of plaque are reported below. RIGHT LEG: Common Femoral: 220, triphasic Profunda Femoris: 25 2, triphasic Proximal SFA: 213, triphasic Mid SFA: 107, monophasic Distal SFA: Occluded Popliteal: Occluded Tibial: Occluded Distal femoral to [id number] bypass graft: Occluded There is a large com plex multiseptated cystic collection seen in the proximal calf U S/US arterial duplex LE RT IMPRESSION: 1. There is occlusio n of the distal SFA and popliteal artery with a distal femoral to zrtaq-[id number] bypass graft which is also occluded. 2. There is a large multiseptated cystic collection in the proximal calf. Electronically ivania d by: Frankie Jimenez MD 11/01/2023 04:34 PM EDT RP Dictated By: Frankie Jimenez MD Signed By: <Electronically signed by Frankie Jimenez MD in OV> 11/01/23 1634 DD/ 1313 TD/TT: 11/01/23 1400 Clerical Grader: Creatinine GFR POC Reviewed date:11/15/2023 07:43:48 PM Interpretation: Performing Lab:[facility], [address] [place] [phone] Notes/Report: [phone] 0.78 >60 0928 HO.THEBODA Creatinine POC 0.8 0.5-1.4 mg/dL GFR POC > 60 Chronic Kidney Disease: Estimated GFR < 60 mL/min/1.73m2 Severe Kidney Disease: Estimated GFR < 15 mL/min/1.73m2 CT angio abd aorta runoff Reviewed date:11/15/2023 07:43:48 PM Interpretation: Performing Lab: Notes/Report: [address] [address] [address] Scan Report Signed Patient: Zan Encinas MR#: [id number] : 1960 Acct:[id number] Age/Sex: 63 / M ADM Date: 11/09/23 Loc: HO.CT Attending Dr: Bimal Knott MD Ordering Physician: Bimal Knott MD Date of Service: 11/09/23 Procedure(s): CT angio abd aorta runoff Accession Number(s): [id number] cc: Quinton Callahan MD; Bimal Knott MD EXAMINATION: CT ANGIOGRAPHY ABDOMEN, PELVIS AND LOWER EXTREMITY RUNOFF WITH CONTRAST CLINICAL INFORMATION: I73.9 - Peripheral vascular disease, unspecified COMPARISON: CTA runoff June 28, 2023 TECHNIQUE: Initial noncontrast localizing scout executive images were obtained. Timing boluses at the level of the celiac and popliteal arteries were calculated. Subsequently, arterial phase multidetector volumetric imaging was performed through the abdomen, pelvis and bilateral lower extremities following the administration of 100 mL Omnipaque 350 intravenous contrast. No contrast reaction reported Sagittal and coronal reformatted images were obtained on the technologist workstation. After extensive post-processing on a dedicated 3-D workstation, 3-D reformatted images were uploaded to PACS and reviewed as well. This CT examination was performed using dose optimization techniques as appropriate, variously including the following: *Automated exposure control *Adjustment of mA and/or kV according to patient size (this includes techniques or standardized protocols for targeted exams where dose is matched to indication/reason for exam; i.e. extremities or head) *Use of iterative reconstruction technique DLP: 793 mGy-cm FINDINGS: VASCULAR: Abdominal Aorta: Mild calcified atherosclerotic disease. No dissection or aneurysmal dilation. Normal aortic taper. Mesenteric Arteries: Celiac artery patent. Superior mesenteric artery patent. 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 Renal Artery: 3 right and 2 left renal arteries. Renal arteries are patent and without stenosis or other vascular anomaly. Right Lower Extremity: Right Common Iliac Artery: Patent. Mild calcified atherosclerotic disease resulting in no high grade stenosis. Right External Iliac Artery: Patent. Mild calcified atherosclerotic disease resulting in no high grade stenosis. Right Internal Iliac Artery: Patent. Common Femoral Artery: Patent. Mild calcified atherosclerotic disease resulting in no high grade stenosis. Superficial Femoral Artery: Patent. Mild calcified atherosclerotic disease resulting in no high grade stenosis. Distal SFA stent occluded. Profunda Femoris: Patent. Popliteal Artery: Popliteal stent occluded. [place] popliteal artery below stent occluded for a short segment until it re-opacifies at the level of the femoral condyles from intramuscular collaterals. Tibioperoneal Trunk: Patent. Anterior Tibial Artery: Patent. Peroneal Artery: Patent. Posterior Tibial Artery: Intermittent stenoses throughout its course until eventual nonopacification at the level of the distal tibia. Dorsalis Pedis: Diminutive in caliber and faintly opacified. Plantar Arch: Patent. Left lower extremity: Left Common Iliac Artery: Patent. Mild calcified atherosclerotic disease resulting in no high grade stenosis. Left External Iliac Artery: Patent. Mild calcified atherosclerotic disease resulting in no high grade stenosis. Left Internal Iliac Artery: Patent. Common Femoral Artery: Patent. Mild calcified atherosclerotic disease resulting in no high grade stenosis. Superficial Femoral Artery: Patent. Mild calcified atherosclerotic disease resulting in no high grade stenosis. Profunda Femoris: Patent. Popliteal Artery: Patent. Focal 50% stenosis at the level of tibial plateau. Tibioperoneal Trunk: Patent. Anterior Tibial Artery: Patent. Peroneal Artery: Patent. Posterior Tibial Artery: Intermittent stenosis versus long segment occlusion of the proximal segment. The mid to distal segment patent.. Dorsalis Pedis: Patent. Plantar Arch: Patent. NONVASCULAR FINDINGS: ABDOMEN/PELVIS: Lung Bases: The visualized lung bases are clear. Liver: Homogeneous in attenuation. Normal in size. Gallbladder: Noninflamed. Biliary System: No intrahepatic or extrahepatic biliary dilation. Pancreas: Homogeneous in attenuation. Spleen: Normal in size. Genitourinary: Bilateral kidneys demonstrate symmetric enhancement. No perinephric fluid collection. No renal calculi. No hydroureteronephrosis. Adrenal Glands: Unremarkable. Reproductive: Prostatomegaly Gastrointestinal: The visualized alimentary tract is normal in course. Diverticular disease without diverticulitis. No evidence of obstruction. Appendix: The appendix is seen in its entirety and is unremarkable. Peritoneum: No pneumoperitoneum. No intra-abdominal fluid collection. Lymph Nodes: No pathologically enlarged abdominal or pelvic lymph nodes. Soft Tissues/Musculoskeletal: Intramuscular cystic lesion measuring 2.9 x 2.8 cm along the medial aspect of right soleus muscle. Right dorsal foot soft tissue swelling. Degenerative disc disease at L3-4. No acute fractures or focal osseous lesions. CT/CT angio abd aorta runoff IMPRESSION: VASCULAR: Overall, below vascular findings are not significantly changed since prior CTA runoff June 28, 2023. Abdomen/Pelvis: No abdominal aortic aneurysm or dissection. Right Lower Extremity: 1. Occlusion of the distal superficial femoral and popliteal artery stent. 2. Below the stent, the [place] popliteal is occluded for a short segment with eventual string-like opacification at the level of the tibial plateau, where it receives supply from intramuscular collaterals. 3. Two-vessel runoff to the foot via the anterior tibial and peroneal arteries. Posterior tibial artery demonstrates intermittent stenoses throughout its course until eventual non-opacification at the level of the distal tibia. 4. Dorsalis pedis diminutive in caliber, but favored to be patent. 5. Plantar arch patent. Left Lower Extremity: 1. Short segment 50% stenosis of the popliteal artery at the level of the tibial plateau. 2. Three vessel runoff to the foot. However, there is intermittent stenosis versus long segment calcific occlusion of the proximal posterior tibial artery. Mid and distal segment of the posterior tibial artery is patent. 3. Dorsalis pedis and plantar arch patent. NONVASCULAR: Intramuscular fluid collection measuring 2.9 x 2.8 cm within the right medial soleus, new since prior CTA June 28, 2023. Fleischner guidelines were followed. Electronically signed by: Jb Richards DO 11/13/2023 03:17 PM EDT Dictated By: Jb Richards Signed By: <Electronically signed by Jb Richards in OV> 11/13/23 1517 DD/ 0926 TD/TT: 11/09/23 1013 Clerical Grader: [place] [id number] CT Scan Report Signed Patient: Zan Encinas MR#: [id number] : 1960 Acct:[id number] Age/Sex: 63 / M ADM Date: 11/09/23 Loc: .CT Attending Dr: Bimal Knott MD Ordering Physician: Bimal Knott MD Date of Service: 11/09/23 Procedure(s): CT ang io abd aorta runoff Accession Number(s): [id number] cc: Quinton Callahan MD; Bimal Knott MD EXAMINATION: CT ANGIOGRAPHY ABDOM EN, PELVIS AND LOWER EXTREMITY RUNOFF WITH CONTRAST CLINICAL INFORMATION: I73.9 - Peripheral vascular disease, unspecified COMPARISON: CTA runoff June 28, 2023 TECHNIQUE: Initial noncontrast localizing scout executive images were obtained. Timing boluses at the level of the celiac and popliteal arteries were calculated. Subsequently, arterial phase multidetector volumetric imaging was performe d through the abdomen, pelvis and bilateral lower extremities followin g the administration of 100 mL Omnipaque 350 intravenous contrast. No contrast reaction reported Sagittal and coronal reformatted images were obtained on the technologist workstation. After extensive post-processing on a dedicated 3-D workstation, 3-D reformatted images w ere uploaded to PACS and reviewed as well. This CT examination was performed using dose optimization techniques as appropriate, various ly including the following: *Automated exposure control *Adjustment of mA an d/or kV according to patient size (this includes techniques or standardized protocols for targeted exams where dose is matched to indication/reason for exam; i.e. extremities or head) *Use of iterative reconstruction technique DLP: 793 mGy-cm FINDINGS: VASCULAR: Abdominal Aorta: Mil d calcified atherosclerotic disease. No dissection or aneurysmal dilati on. Normal aortic taper. Mesenteric Arteries: Celiac artery patent. Superior mesenteric artery patent. 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 Renal Artery: 3 righ t and 2 left renal arteries. Renal arteries are patent and without stenosis or other vascular anomaly. Right Lower Extremity: Right Common Iliac Artery: Patent. Mild calcified atherosclerotic disease resulting in no high grade stenosis. Right External Iliac Artery: Patent. Mild calcified atherosclerotic disease resulting in no high grade stenosis. Right Internal Iliac Artery: Patent. Common Femoral Arter y: Patent. Mild calcified atherosclerotic disease resulting in no high grade stenosis. Superficial Femoral Artery: Patent. Mild calcified atherosclerotic disease resulting in no high grade stenosis. Distal SFA stent occluded. Profunda Femoris: Patent. Popliteal Artery: Popliteal stent occluded. [place] popliteal artery below stent occluded for a short segment until it re-opacifies at the level of the femoral condyles from intramuscular collaterals. Tibioperoneal Trunk: Patent. Anterior Tibial Jane ry: Patent. Peroneal Artery: Patent. Posterior Tibial Art noemi: Intermittent stenoses throughout its course until eventual nonopacification at the level of the distal tibia. Dorsalis Pedis: Diminutive in caliber and faintly opacified. Plantar Arch: Patent. Left lower extremity: Left Common Iliac Artery: Patent. Mild calcified atherosclerotic disease resulting in no high grade stenosis. Left External Iliac Artery: Patent. Mild calcified atherosclerotic disease resulting in no high grade stenosis. Left Internal Iliac Artery: Patent. Common Femoral Arter y: Patent. Mild calcified atherosclerotic disease resulting in no high grade stenosis. Superficial Femoral Artery: Patent. Mild calcified atherosclerotic disease resulting in no high grade stenosis. Profunda Femoris: Patent. Popliteal Artery: Patent. Focal 50% stenosis at the level of tibial plateau. Tibioperoneal Trunk: Patent. Anterior Tibial Jane ry: Patent. Peroneal Artery: Patent. Posterior Tibial Art noemi: Intermittent stenosis versus long segment occlusion of the proximal segment. The mid to distal segment patent.. Dorsalis Pedis: Patent. Plantar Arch: Patent. NONVASCULAR FINDINGS: ABDOMEN/PELVIS: Lung Bases: The visualized lung bases are clear. Liver: Homogeneous i n attenuation. Normal in size. Gallbladder: Noninflamed. Biliary System: No intrahepatic or extrahepatic biliary dilation. Pancreas: Homogeneou s in attenuation. Spleen: Normal in size. Genitourinary: Bilat eral kidneys demonstrate symmetric enhancement. No perinephric fluid collection. No renal calculi. No hydroureteronephrosis. Adrenal Glands: Unremarkable. Reproductive: Prostatomegaly Gastrointestinal: Th e visualized alimentary tract is normal in course. Diverticular disease without diverticulitis. No evidence of obstruction. Appendix: The append ix is seen in its entirety and is unremarkable. Peritoneum: No pneumoperitoneum. No intra-abdominal fluid collection. Lymph Nodes: No pathologically enlarged abdominal or pelvic lymph nodes. Soft Tissues/Musculoskeletal: Intramuscular cystic lesion measuring 2.9 x 2.8 cm along the medial aspect of right soleus muscle. Right dorsal foot soft tissue swelling. Degenerative disc disease at L3-4. No acute fractures or focal osseous lesions. C T/CT angio abd aorta runoff IMPRESSION: VASCULAR: Overall, below vascu lar findings are not significantly changed since prior CTA runoff June 28, 2023. Abdomen/Pelvis: No abdominal aortic aneurysm or dissection. Right Lower Extremity: 1. Occlusion of the distal superficial femoral and popliteal artery stent. 2. Below the stent, the [place] popliteal is occluded for a short segment with eventua l string-like opacification at the level of the tibial plateau, wher e it receives supply from intramuscular collaterals. 3. Two-vessel runoff to the foot via the anterior tibial and peroneal arteries. Posterior tibial artery demonstrates intermittent stenoses throughout its cours e until eventual non-opacification at the level of the distal tibia. 4. Dorsalis pedis diminutive in caliber, but favored to be patent. 5. Plantar arch patent. Left Lower Extremity: 1. Short segment 50% stenosis of the popliteal artery at the level of the tibial plateau. 2. Three vessel runo ff to the foot. However, there is intermittent stenosis versus long segment calcific occlusion of the proximal posterior tibial art noemi. Mid and distal segment of the posterior tibial artery is patent. 3. Dorsalis pedis a nd plantar arch patent. NONVASCULAR: Intramuscular fluid collection measuring 2.9 x 2.8 cm within the right med ial soleus, new since prior CTA June 28, 2023. Fleischner guideline s were followed. Electronically ivania d by: Jb Richards DO 11/13/2023 03:17 PM EDT Dictated By: Jb Richards Signed By: <Electronically signed by Jb Richards in OV> 11/13/23 1517 DD/ TD/TT: 11/09/23 1013 Clerical Grader: Complete Blood Count Auto Di ff Reviewed date:11/21/2023 06:36:35 AM Interpretation: Performing Lab:[facility], [address] [place] [phone] Notes/Report: White Blood Count 8.4 4.8-10.8 X10*3/uL Red Blood Count 4.74 4.60-5.80 X10*6/uL Hemoglobin 15.5 14.0-18.0 g/dl Hematocrit 46.0 42.0-52.0 % Mean Corpuscular Volume 97.0 80.0-98.0 fL Mean Corpuscular Hemoglobin 32.7 27.0-33.0 pg Mean Corpuscular HGB Conc 33.7 31.0-36.0 g/dl Red Cell Distribution Width 11.9 11.0-16.0 % Platelet Count 261 160-400 X10*3/uL Mean Platelet Volume 9.8 9.4-12.4 fL Neutrophils Percent Auto 65.3 45-73 % Imm Gran Pct Auto 0.4 0.0-0.4 % Lymphocytes Percent Auto 19.9 20-40 % Monocytes Percent Auto 10.5 2-11 % Eosinophils Percent Auto 3.1 0-4 % Basophils Percent Auto 0.8 0-2 % NRBC Pct Auto 0.0 0.0-0.2 /100WBC Neutrophils Absolute Auto 5.5 2.0-8.3 x10*3/uL Imm Gran Abs Auto 0.03 0.00-0.03 X10*3/uL Lymphocytes Absolute Auto 1.7 1.2-4.9 X10*3/uL Monocytes Absolute Auto 0.9 0.1-1.2 X10*3/uL Eosinophils Absolute Auto 0.3 0.0-0.4 X10*3/uL Basophils Absolute Auto 0.1 0.0-0.2 X10*3/uL NRBC Abs Auto 0.000 0.0-0.012 X10*3/uL Prothrombin Time INR Reviewed date:11/21/2023 06:36:35 AM Interpretation: Performing Lab:[address] [phone] Notes/Report: Prothrombin Time 10.3 10.9-12.4 SEC INTERNATIONAL NORM RATIO 0.9 0.9-1.1 INTERNATIONAL [...] 2.5 - 3.5 Partial Thromboplastin Time Reviewed date:11/21/2023 06:36:35 AM Interpretation: Performing Lab:[facility], [address] [place] [phone] Notes/Report: Partial Thromboplastin Time 31.9 26.0-36.8 SEC For information regarding the monitoring of direct thrombin inhibitors, please refer to Pharmacy. Basic Metabolic Panel Reviewed date:11/21/2023 06:36:35 AM Interpretation: Performing Lab:[address] [phone] Notes/Report: Sodium 143 135-145 mmol/L Potassium 4.5 3.3-5.1 mmol/L Chloride 109 96-108 mmol/L Carbon Dioxide 28 22-29 mmol/L Anion Gap 11 12-20 Blood Urea Nitrogen 20 9-16 mg/dL Creatinine 0.95 0.5-1.4 mg/dL Creatinine Clr Calc Pharmacy 85.0 eGFR (calculated from the MDRD study equation) and eCrCl (calculated from the Cockcroft-Gault equation) are based on different parameters and may not yield comparable results. If eCrCl result is absurd, please check patient's height/weight. Estimated Glomerular Filt Rate > 60 NOTE: For -[place] individuals, multiply the result by 1.210. Chronic Kidney Disease: Estimated GFR < 60 mL/min/1.73m2 Severe Kidney Disease: Estimated GFR < 15 mL/min/1.73m2 Glucose Random 99 60-115 mg/dL Calcium 9.6 8.4-10.2 mg/dL Cancelled Chem Reviewed date:01/07/2024 01:28:15 PM Interpretation: Performing Lab:[facility], [address] [place] [phone] Notes/Report: Cancelled Chem SEE NOTE NO SPECIMEN R ECEIVED FOR BUN AND CREAT US arterial duplex LE RT Reviewed date:01/24/2024 07:41:27 AM Interpretation: Performing Lab: Notes/Report: [address] [address] Ultrasound Report Signed Patient: Zan Encinas MR#: [id number] : 1960 Acct:[id number] Age/Sex: 63 / M ADM Date: 01/01/24 Loc: . Attending Dr: Bimal Knott MD Ordering Physician: Sera Saxena PA-C Date of Service: 01/01/24 Procedure(s): US arterial duplex LE RT Accession Number(s): [id number] cc: Quinton Callahan MD; Sera Saxena PA-C EXAMINATION: US NONINVASIVE ASSESSMENT OF THE RIGHT LOWER EXTREMITY WITH ARTERIAL DUPLEX AND ANKLE BRACHIAL INDICES (ABIS) CLINICAL INFORMATION: Peripheral vascular disease, history of right lower extremity bypass COMPARISON: 11/01/2023 TECHNIQUE: Duplex Doppler techniques with waveform analysis and measurement of velocities in the common femoral, profunda femoris, superficial femoral, popliteal and tibial arteries were performed. FINDINGS: RIGHT LOWER EXTREMITY DUPLEX ULTRASOUND: Common femoral artery: 103 cm/s. Diastolic flow reversal: Biphasic There is an old bypass graft off the common femoral artery extending through the thigh into the calf which is occluded Profunda femoris artery: Not visualized Superficial femoral artery (proximal): 91.7 cm/s. Diastolic flow reversal: Monophasic Superficial femoral artery (mid): A 4.7 cm/s. Diastolic flow reversal: Monophasic Superficial femoral artery (distal): Stent is present which is patent on color Doppler , previously occluded Proximal stent: 82.3 cm/s, monophasic Mid stent: 95.6 cm/s, monophasic Distal stent: 110 cm/s, monophasic Popliteal artery: 32.9 cm/s cm/s Diastolic flow reversal: Monophasic Posterior tibial artery: Occluded Anterior tibial artery: 21.1 cm/s Diastolic flow reversal: Monophasic Note is made of a complex fluid collection within the proximal calf most consistent with underlying hematoma measuring 3.3 x 4.9 x 2.0 cm US/US arterial duplex LE RT IMPRESSION: 1. Patent stent in the distal superficial femoral artery. 2. Occluded bypass graft in the right lower extremity. 3. Occlusive changes in the below-knee runoff vessels 4. Complex fluid collection in the proximal calf consistent with a hematoma. Electronically signed by: Coleman Chaidez MD 01/23/2024 01:03 PM [facility] Dictated By: Coleman Chaidez MD Signed By: <Electronically signed by Coleman Chaidez MD in OV> 01/23/24 1303 DD/ 1430 TD/TT: 01/01/24 1517 Clerical Grader: [place] [address] Ultrasound Report Signed Patient: Zan Encinas MR#: [id number] : 1960 Acct:[id number] Age/Sex: 63 / M ADM Date: 01/01/24 Loc: . Attending Dr: Bimal Knott MD Ordering Physician: Sera Saxena PA-C Date of Service: 01/01/24 Procedure(s): US arterial duplex LE RT Accession Number(s): [id number] cc: Quinton Callahan MD; Sera Saxena PA-C EXAMINATION: US NONINVASIVE ASSESSMENT OF THE RIGHT LOWER EXTREMITY WITH ARTERIAL DUPLEX AND ANKLE BRACHIAL INDICES (ABIS) CLINICAL INFORMATION: Peripheral vascular disease, history of right lower extremity bypass COMPARISON: 11/01/2023 TECHNIQUE: Duplex Doppler techniques with waveform analysis and measurement of velocities in the co mmon femoral, profunda femoris, superficial femoral, popliteal a nd tibial arteries were performed. FINDINGS: RIGHT LOWER EXTREMIT Y DUPLEX ULTRASOUND: Common femoral arter y: 103 cm/s. Diastolic flow rever ben: Biphasic There is an old bypa ss graft off the common femoral artery extending through the thigh in to the calf which is occluded Profunda femoris art noemi: Not visualized Superficial femoral artery (proximal): 91.7 cm/s. Diastolic flow rever ben: Monophasic Superficial femoral artery (mid): A 4.7 cm/s. Diastolic flow rever ben: Monophasic Superficial femoral artery (distal): Stent is present which is patent on color Doppler , previously occluded Proximal stent: 82.3 cm/s, monophasic Mid stent: 95.6 cm/s , monophasic Distal stent: 110 cm /s, monophasic Popliteal artery: 32 .9 cm/s cm/s Diastolic flow rever ben: Monophasic Posterior tibial art noemi: Occluded Anterior tibial jane ry: 21.1 cm/s Diastolic flow rever ben: Monophasic Note is made of a complex fluid collection within the proximal calf most consistent with underlying hematoma measuring 3.3 x 4.9 x 2.0 cm U S/US arterial duplex LE RT IMPRESSION: 1. Patent stent in t he distal superficial femoral artery. 2. Occluded bypass g raft in the right lower extremity. 3. Occlusive changes in the below-knee runoff vessels 4. Complex fluid collection in the proximal calf consistent with a hematoma. Electronically ivania d by: Coleman Chaidez MD 01/23/2024 01:03 PM [facility] Dictated By: Coleman Chaidez MD Signed By: <Electronically signed by Coleman Chaidez MD in OV> 01/23/24 1303 DD/ 1430 TD/TT: 01/01/24 1517 Clerical Grader: Complete Blood Count Auto Di ff Reviewed date:01/07/2024 01:28:15 PM Interpretation: Performing Lab:[facility], [address] [place] [phone] Notes/Report: White Blood Count 8.2 4.8-10.8 X10*3/uL Red Blood Count 4.31 4.60-5.80 X10*6/uL Hemoglobin 13.8 14.0-18.0 g/dl Hematocrit 42.0 42.0-52.0 % Mean Corpuscular Volume 97.4 80.0-98.0 fL Mean Corpuscular Hemoglobin 32.0 27.0-33.0 pg Mean Corpuscular HGB Conc 32.9 31.0-36.0 g/dl Red Cell Distribution Width 12.8 11.0-16.0 % Platelet Count 261 160-400 X10*3/uL Mean Platelet Volume 9.5 9.4-12.4 fL Neutrophils Percent Auto 63.7 45-73 % Imm Gran Pct Auto 0.4 0.0-0.4 % Lymphocytes Percent Auto 21.0 20-40 % Monocytes Percent Auto 9.3 2-11 % Eosinophils Percent Auto 4.9 0-4 % Basophils Percent Auto 0.7 0-2 % NRBC Pct Auto 0.0 0.0-0.2 /100WBC Neutrophils Absolute Auto 5.2 2.0-8.3 x10*3/uL Imm Gran Abs Auto 0.03 0.00-0.03 X10*3/uL Lymphocytes Absolute Auto 1.7 1.2-4.9 X10*3/uL Monocytes Absolute Auto 0.8 0.1-1.2 X10*3/uL Eosinophils Absolute Auto 0.4 0.0-0.4 X10*3/uL Basophils Absolute Auto 0.1 0.0-0.2 X10*3/uL NRBC Abs Auto 0.000 0.0-0.012 X10*3/uL PTT Heparin Drip Reviewed date:01/08/2024 08:33:39 AM Interpretation: Performing Lab:[facility], [address] [place] [phone] Notes/Report: PTT Heparin Drip 33.9 53-77.9 SEC For information regarding the monitoring of heparin therapy, please refer to Pharmacy. Fibrinogen Reviewed date:01/08/2024 08:33:39 AM Interpretation: Performing Lab:[facility], [address] [place] [phone] Notes/Report: Fibrinogen 465 259-690 MG/DL Blood Urea Nitrogen Reviewed date:01/07/2024 01:28:15 PM Interpretation: Performing Lab:[facility], [address] [place] [phone] Notes/Report: Blood Urea Nitrogen 16 9-16 mg/dL Creatinine Reviewed date:01/07/2024 01:28:15 PM Interpretation: Performing Lab:[facility], [address] [place] [phone] Notes/Report: Creatinine 0.81 0.5-1.4 mg/dL Creatinine Clr Calc Pharmacy 99.7 eGFR (calculated from the MDRD study equation) and eCrCl (calculated from the Cockcroft-Gault equation) are based on different parameters and may not yield comparable results. If eCrCl result is absurd, please check patient's height/weight. Estimated Glomerular Filt Rate > 60 NOTE: For -[place] individuals, multiply the result by 1.210. Chronic Kidney Disease: Estimated GFR < 60 mL/min/1.73m2 Severe Kidney Disease: Estimated GFR < 15 mL/min/1.73m2 ACT LR Reviewed date:01/16/2024 08:51:12 AM Interpretation: Performing Lab:[facility], [address] [place] [phone] Notes/Report: out of range low [id number] HO.MARUSA [id number] HO.MULVEC Fibrinogen Reviewed date:01/08/2024 08:33:39 AM Interpretation: Performing Lab:[facility], [address] [place] [phone] Notes/Report: Fibrinogen 445 259-690 MG/DL Complete Blood Count no Diff Reviewed date:01/10/2024 09:47:57 AM Interpretation: Performing Lab:[address] [phone] Notes/Report: White Blood Count 28.7 4.8-10.8 X10*3/uL Red Blood Count 3.22 4.60-5.80 X10*6/uL Hemoglobin 10.3 14.0-18.0 g/dl Hematocrit 31.4 42.0-52.0 % Mean Corpuscular Volume 97.5 80.0-98.0 fL Mean Corpuscular Hemoglobin 32.0 27.0-33.0 pg Mean Corpuscular HGB Conc 32.8 31.0-36.0 g/dl Red Cell Distribution Width 12.9 11.0-16.0 % Platelet Count 319 160-400 X10*3/uL Mean Platelet Volume 9.5 9.4-12.4 fL NRBC Pct Auto 0.0 0.0-0.2 /100WBC NRBC Abs Auto 0.000 0.0-0.012 X10*3/uL Complete Blood Count Auto Di ff Reviewed date:01/08/2024 08:33:39 AM Interpretation: Performing Lab:[facility], [address] [place] [phone] Notes/Report: White Blood Count 10.1 4.8-10.8 X10*3/uL Red Blood Count 3.86 4.60-5.80 X10*6/uL Hemoglobin 12.5 14.0-18.0 g/dl Hematocrit 37.3 42.0-52.0 % Mean Corpuscular Volume 96.6 80.0-98.0 fL Mean Corpuscular Hemoglobin 32.4 27.0-33.0 pg Mean Corpuscular HGB Conc 33.5 31.0-36.0 g/dl Red Cell Distribution Width 12.8 11.0-16.0 % Platelet Count 159 160-400 X10*3/uL Mean Platelet Volume 9.6 9.4-12.4 fL Neutrophils Percent Auto 73.7 45-73 % Imm Gran Pct Auto 0.4 0.0-0.4 % Lymphocytes Percent Auto 11.9 20-40 % Monocytes Percent Auto 11.9 2-11 % Eosinophils Percent Auto 1.6 0-4 % Basophils Percent Auto 0.5 0-2 % NRBC Pct Auto 0.0 0.0-0.2 /100WBC Neutrophils Absolute Auto 7.4 2.0-8.3 x10*3/uL Imm Gran Abs Auto 0.04 0.00-0.03 X10*3/uL Lymphocytes Absolute Auto 1.2 1.2-4.9 X10*3/uL Monocytes Absolute Auto 1.2 0.1-1.2 X10*3/uL Eosinophils Absolute Auto 0.2 0.0-0.4 X10*3/uL Basophils Absolute Auto 0.1 0.0-0.2 X10*3/uL NRBC Abs Auto 0.000 0.0-0.012 X10*3/uL Hold Lav - Possible Hematolo gy Reviewed date:01/08/2024 02:05:08 PM Interpretation: Performing Lab:[facility], [address] [place] [phone] Notes/Report: Hold Lav - Possible Hematology SEE NOTE Specimen will be held untested for 8 hours. Call Hematology if testing is desired. PTT Heparin Drip Reviewed date:01/08/2024 08:33:39 AM Interpretation: Performing Lab:[facility], [address] [place] [phone] Notes/Report: PTT Heparin Drip 40.9 53-77.9 SEC For information regarding the monitoring of heparin therapy, please refer to Pharmacy. Fibrinogen Reviewed date:01/08/2024 08:33:39 AM Interpretation: Performing Lab:[facility], [address] [place] [phone] Notes/Report: Fibrinogen 432 259-690 MG/DL Basic Metabolic Panel Reviewed date:01/08/2024 08:33:39 AM Interpretation: Performing Lab:[facility], [address] [place] [phone] Notes/Report: Sodium 138 135-145 mmol/L Potassium 3.8 3.3-5.1 mmol/L Chloride 108 96-108 mmol/L Carbon Dioxide 22 22-29 mmol/L Anion Gap 12 12-20 Blood Urea Nitrogen 8 9-16 mg/dL Creatinine 0.68 0.5-1.4 mg/dL Creatinine Clr Calc Pharmacy 118.8 eGFR (calculated from the MDRD study equation) and eCrCl (calculated from the Cockcroft-Gault equation) are based on different parameters and may not yield comparable results. If eCrCl result is absurd, please check patient's height/weight. Estimated Glomerular Filt Rate > 60 Chronic Kidney Disease: Estimated GFR < 60 mL/min/1.73m2 Severe Kidney Disease: Estimated GFR < 15 mL/min/1.73m2 Glucose Random 110 60-115 mg/dL Calcium 8.7 8.4-10.2 mg/dL Phosphorus Reviewed date:01/08/2024 08:33:39 AM Interpretation: Performing Lab:[facility], [address] [place] [phone] Notes/Report: Phosphorus 2.9 2.7-4.5 mg/dL Magnesium Reviewed date:01/08/2024 08:33:39 AM Interpretation: Performing Lab:[facility], [address] [place] [phone] Notes/Report: Magnesium 1.8 1.6-2.6 mg/dL Albumin Level Reviewed date:01/08/2024 08:33:39 AM Interpretation: Performing Lab:[facility], [address] [place] [phone] Notes/Report: Albumin Level 3.2 3.5-5.0 g/dL ACT LR Reviewed date:01/11/2024 01:49:27 PM Interpretation: Performing Lab:[facility], [address] [place] [phone] Notes/Report: 109 [id number] HO.MARUSA 0846 HO.MULVEC ACT 109 79-173 Celite s Results are converted to a reference Celite ACT value in seconds. A reference interval is unavailable for ACT. Kathy Flores Reviewed date:01/08/2024 02:05:08 PM Interpretation: Performing Lab:[facility], [address] [place] [phone] Notes/Report: Kathy Flores See Note Specimen held untested for 24 hours; Call to request Chemistry testing. SLIDE REVIEW Reviewed date:01/08/2024 02:05:08 PM Interpretation: Performing Lab:[facility], [address] [place] [phone] Notes/Report: SLIDE REVIEW VERIFIED Type and Screen Reviewed date:01/11/2024 01:49:26 PM Interpretation: Performing Lab:[facility], [address] [place] [phone] Notes/Report: Results at Issue Units as of 01/09/24 0930 ... Test View Group: Most Recent HGB HCT Results LABORATORY Date Time Test Result Flag Normal Range 01/09/24 0534 HGB 7.7 L 14.0-18.0 g/dl 01/09/24 0534 HCT 23.0 L 42.0-52.0 % Results at Issue Units as of 01/09/24 1521 ... Test View Group: Most Recent HGB HCT Results LABORATORY Date Time Test Result Flag Normal Range 01/09/241999 HGB PENDING RECEIPT 14.0-18.0 g/dl 01/09/24 140 HGB 7.5 L 14.0-18.0 g/dl 01/09/241999 HCT PENDING RECEIPT 42.0-52.0 % 01/09/241408 HCT 22.0 L 42.0-52.0 % Results at Issue Units as of 01/10/24 0157 ... Test View Group: Most Recent HGB HCT Results LABORATORY Date Time Test Result Flag Normal Range 01/10/24499 HGB PENDING RECEIPT 14.0-18.0 g/dl 01/09/241947 HGB 7.7 L 14.0-18.0 g/dl 01/10/24499 HCT PENDING RECEIPT 42.0-52.0 % 01/09/241947 HCT 23.3 L 42.0-52.0 % Results at Issue Units as of 01/10/241939 ... Test View Group: Most Recent HGB HCT Results LABORATORY Date Time Test Result Flag Normal Range 01/10/241934 HGB PENDING RECEIPT 14.0-18.0 g/dl 01/10/241748 HGB 3.7 #*L 14.0-18.0 g/dl Results of HGB called to and read back by JONAS on 01/10/24 at 1916 by BORIS. 01/10/241934 HCT PENDING RECEIPT 42.0-52.0 % 01/10/241748 HCT 10.5 #*L 42.0-52.0 % Results of HCT called to and read back by JONAS on 01/10/24 at 1917 by BORIS. mL/HR Rate to transfuse BBK Product 100 mL/HR Rate to transfuse BBK Product 100 Results at Issue Units as of 01/10/242027 ... Test View Group: Most Recent HGB HCT Results LABORATORY Date Time Test Result Flag Normal Range 01/10/241943 HGB 3.3 *L 14.0-18.0 g/dl Results of HGB called to and read back by JONAS on 01/10/24 at 1959 by BORIS. 01/10/241943 HCT 9.9 *L 42.0-52.0 % Results of HCT called to and read back by JONAS on 01/10/24 at 2000 by BORIS. Results at Issue Units as of 01/10/242027 ... Test View Group: Most Recent HGB HCT Results LABORATORY Date Time Test Result Flag Normal Range 01/10/241943 HGB 3.3 *L 14.0-18.0 g/dl Results of HGB called to and read back by JONAS on 01/10/24 at 9 by BORIS. 01/10/241943 HCT 9.9 *L 42.0-52.0 % Results of HCT called to and read back by JONAS on 01/10/24 at 2000 by BORIS. Results at Issue Units as of 01/10/242156 ... Test View Group: Most Recent Coag Results LABORATORY Date Time Test Result Flag Normal Range 01/10/24 0459 PT* 12.1 10.9-12.4 SEC Results at Issue Units as of 01/10/242156 ... Test View Group: Most Recent HGB HCT Results LABORATORY Date Time Test Result Flag Normal Range 01/10/241943 HGB 3.3 *L 14.0-18.0 g/dl Results of HGB called to and read back by JONAS on 01/10/24 at 1958 by BORIS. 01/10/241943 HCT 9.9 *L 42.0-52.0 % Results of HCT called to and read back by [employer] on 01/10/24 at 2000 by BORIS. Results at Issue Units as of 01/10/242156 ... Test View Group: Most Recent Coag Results LABORATORY Date Time Test Result Flag Normal Range 01/10/24 0459 PT* 12.1 10.9-12.4 SEC Results at Issue Units as of 01/10/242156 ... Test View Group: Most Recent HGB HCT Results LABORATORY Date Time Test Result Flag Normal Range 01/10/241943 HGB 3.3 *L 14.0-18.0 g/dl Results of HGB called to and read back by JONAS on 01/10/24 at 9 by BORIS. 01/10/241943 HCT 9.9 *L 42.0-52.0 % Results of HCT called to and read back by JONAS on 01/10/24 at 2000 by BORIS. Results at Issue Units as of 01/11/244 ... Test View Group: Most Recent Platelet Count LABORATORY Date Time Test Result Flag Normal Range 01/11/24 0500 PLT PENDING RECEIPT 160-400 X10*3/uL 01/11/24 0110 PLT 197 # 160-400 X10*3/uL mL/HR Rate to transfuse BBK Product 100 Results at Issue Units as of 01/11/24 0201 ... Test View Group: Most Recent Coag Results LABORATORY Date Time Test Result Flag Normal Range 01/10/24 0459 PT* 12.1 10.9-12.4 SEC Results at Issue Units as of 01/11/24 0201 ... Test View Group: Most Recent HGB HCT Results LABORATORY Date Time Test Result Flag Normal Range 01/11/24 0500 HGB PENDING RECEIPT 14.0-18.0 g/dl 01/11/24 0110 HGB 6.7 #*L 14.0-18.0 g/dl Results of HEMOGLOBIN called to and read back by SARTHAK on 01/11/24 at 0122 by JEWELS. 01/11/24 0500 HCT PENDING RECEIPT 42.0-52.0 % 01/11/24109 HCT 18.7 #*L 42.0-52.0 % Results of HEMATOCRIT called to and read back by SARTHAK on 01/11/24 at 0123 by JEWELS. MTP MTP None available No Blood Type OP Antibody Screen NEGATIVE Red Blood Cells Reviewed date:01/11/2024 01:49:26 PM Interpretation: Performing Lab:[facility], [address] [place] [phone] Notes/Report: Red Blood Cells [id number] ON RC Red Blood Cells TRANSFUSED 01/09/24 0929 Red Blood Cells [id number] OP RC Red Blood Cells TRANSFUSED 01/09/24 1520 Red Blood Cells [id number] OP RC Red Blood Cells TRANSFUSED 01/10/24 0154 Red Blood Cells [id number] OP RC Red Blood Cells TRANSFUSED 01/10/24 1938 Red Blood Cells [id number] OP RC Red Blood Cells TRANSFUSED 01/10/242025 Red Blood Cells [id number] OP RC Red Blood Cells TRANSFUSED 01/10/24 2156 Red Blood Cells [id number] OP RC Red Blood Cells TRANSFUSED 01/10/242025 Red Blood Cells [id number] OP RC Red Blood Cells TRANSFUSED 01/11/24 0159 Red Blood Cells [id number] OP RC Red Blood Cells TRANSFUSED 01/11/24 0159 Arterial Blood Gases - POC Reviewed date:01/08/2024 02:05:08 PM Interpretation: Performing Lab:[facility], [address] [place] [phone] Notes/Report: ABG pH 7.42 7.35-7.45 METER #: [id number] additional_comment: Cbgreavet ctrbpavlova ABG pCO2 34 32-45 mmHg METER #: [id number] additional_comment: Cbgreavet ctrbpavlova ABG pO2 95 83-108 mmHg METER #: [id number] additional_comment: Cbgreavet ctrbpavlova ABG Base Excess -1.2 METER #: [id number] additional_comment: Cbgreavet ctrbpavlova ABG HCO3 22 22-26 mmol/L METER #: [id number] additional_comment: Cbgreavet ctrbpavlova ABG O2 % Saturation 99.0 METER #: [id number] additional_comment: Cbgreavet ctrbpavlova Pheresis Platelets Reviewed date:01/11/2024 01:49:27 PM Interpretation: Performing Lab:[facility], [address] [place] [phone] Notes/Report: Pheresis Platelets [id number] OP PHPLT Pheresis Platelets TRANSFUSED 01/11/24 0133 Hold Green Gel Reviewed date:01/08/2024 02:05:08 PM Interpretation: Performing Lab:[facility], [address] [place] [phone] Notes/Report: Hold Green Gel See Note Specimen held untested for 24 hours; Call to request Chemistry testing. Fresh Frozen Plasma Reviewed date:01/11/2024 01:49:27 PM Interpretation: Performing Lab:[facility], [address] [place] [phone] Notes/Report: Fresh Frozen Plasma [id number] AP FFP Fresh Frozen Plasma TRANSFUSED 01/11/24 0159 Fresh Frozen Plasma [id number] OP FFP Fresh Frozen Plasma TRANSFUSED 01/10/[address] abdomen pelvis w con Reviewed date:01/08/2024 02:05:08 PM Interpretation: Performing Lab: Notes/Report: [address] [place] [address] CT Scan Report Signed Patient: Zan Encinas MR#: [id number] : 1960 Acct:[id number] Age/Sex: 63 / M ADM Date: 01/07/24 Loc: [facility] 255-[address]: Bimal Knott MD Ordering Physician: Sawyer Case MD Date of Service: 01/08/24 Procedure(s): CT abdomen pelvis w IV con Accession Number(s): [id number] cc: Quinton Callahan MD; Sawyer Case MD EXAMINATION: CT ABDOMEN AND PELVIS WITH CONTRAST CLINICAL INFORMATION: Shock after procedure COMPARISON: CT angiogram aorta and runoff dated November 09, 2023 TECHNIQUE: Multidetector volumetric images were obtained from the superior aspect of the liver through the pubic symphysis following administration 85 mL of Omnipaque 350 intravenous contrast without reported immediate complications. Sagittal and coronal reformatted images were obtained on the technologist's workstation. Oral contrast: No This CT examination was performed using dose optimization techniques as appropriate, variously including the following: *Automated exposure control *Adjustment of mA and/or kV according to patient size (this includes techniques or standardized protocols for targeted exams where dose is matched to indication/reason for exam; i.e. extremities or head) *Use of iterative reconstruction technique DLP: 768 mGy-cm FINDINGS: There is a large volume, 27 x 11 x 12 cm heterogeneous mixed isodensity extending from the left inguinal canal to the left upper retroperitoneum anterior to the left psoas iliac muscle displacing the left kidney anterior medially and displacing the peritoneal contents medially into the right. There is dilatation of the left pelvicalyceal system and the proximal left ureter with fluid fluid levels in the pelvicalyceal system. There is a hyperdensity within the left inguinal scrotal canal. Tiny subcutaneous emphysema beneath the skin of the left inguinal region. LUNG BASES: Patchy groundglass, atelectasis in the lung bases. LIVER, GALLBLADDER, AND BILIARY TREE: Liver measures 15 cm. No focal mass. Tortuous enhancing vessels in the perihepatic region with the normal patency of the right portal vein and the confluence. I do not see patency of the left Main portal vein branch. Hepatic veins and intrahepatic portion of the IVC are patent. No pericholecystic fluid collection or gallbladder wall thickening. Common bile duct measures 5 mm. PANCREAS: No focal pancreatic mass. No main pancreatic ductal dilatation. No peripancreatic fluid collection. SPLEEN: Measures 8 cm. No focal mass. ADRENAL GLANDS: No nodular lesions. KIDNEYS AND URETERS: Right kidney demonstrates no hydronephrosis or gross mass. Left kidney has been described with dilatation of the left pelvicalyceal system extrarenal pelvis and displaced left ureter in the anterior medial retroperitoneal compartment BLADDER: Fluid-filled. GASTROINTESTINAL TRACT: No intestinal obstruction pattern. No pneumoperitoneum. No ascites. No pneumatosis intestinalis Appendix is normal. ABDOMINAL WALL: Fat-containing umbilical hernia and periumbilical hernia. Hyperdense fluid within the left inguinal scrotal region. LYMPH NODES: No gross lymphadenopathy. VASCULAR: Vascular abnormality in the left inguinal region involving the vein and arteries most likely the left common femoral vein. Intraluminal filling defects within the right superficial femoral vein. There are likely [place]-Ariel bypass femoral, bilaterally.. OSSEOUS STRUCTURES: Multilevel thoracolumbar spondylosis without acute fracture or listhesis. Degenerative changes in the sacroiliac joints. CT/CT abdomen pelvis w IV con IMPRESSION: Large volume retroperitoneal hemorrhage/hematoma causing extrinsic compression upon the left ureter and hydroureteronephrosis. Vascular injury/pseudoaneurysm versus fistula in the left common femoral vessels should be considered. Concerning emboli/clot right common femoral arteries. Discussed with the requesting physician Dr.Andrey Case at 12:03 PM Fleischner guidelines were followed. Electronically signed by: Theo Stern MD 01/08/2024 12:21 PM EST Dictated By: Theo Lagunas MD Signed By: <Electronically signed by Theo Steven MD in OV> 01/08/24 1221 DD/ 1105 TD/TT: 01/08/24 1125 Clerical Grader: [place] [id number] CT Scan Report Signed Patient: Zan Encinas MR#: [id number] : 1960 Acct:[id number] Age/Sex: 63 / M ADM Date: 01/07/24 Loc: .[facility] 255-[address]: Bimal Knott MD Ordering Physician: Sawyer Case MD Date of Service: 01/08/24 Procedure(s): CT abd omen pelvis w IV con Accession Number(s): [id number] cc: Quinton Callahan MD; Sawyer Case MD EXAMINATION: CT ABDOMEN AND PELVI S WITH CONTRAST CLINICAL INFORMATION: Shock after procedure COMPARISON: CT angiogram aorta a nd runoff dated November 09, 2023 TECHNIQUE: Multidetector volume tric images were obtained from the superior aspect of the liver through the pubic symphysis following administration 85 mL of Omnipaque 350 intravenous contrast without reported immediate complications. Sagit nehemiah and coronal reformatted images were obtained on the technologist's workstation. Oral contrast: No This CT examination was performed using dose optimization techniques as appropriate, various ly including the following: *Automated exposure control *Adjustment of mA an d/or kV according to patient size (this includes techniques or standardized protocols for targeted exams where dose is matched to indication/reason for exam; i.e. extremities or head) *Use of iterative reconstruction technique DLP: 768 mGy-cm FINDINGS: There is a large vol ume, 27 x 11 x 12 cm heterogeneous mixed isodensity extending from the l eft inguinal canal to the left upper retroperitoneum ante rior to the left psoas iliac muscle displacing the left kidney anterior medially and displacing the peritoneal contents medially into the right. There is dilatation of the left pelvicalyceal system and the proximal left ureter with flu id fluid levels in the pelvicalyceal system. There is a hyperdens ity within the left inguinal scrotal canal. Tiny subcutaneous emphyse ma beneath the skin of the left inguinal region. LUNG BASES: Patchy groundglass, atelectasis in the lung bases. LIVER, GALLBLADDER, AND BILIARY TREE: Liver measures 15 cm. No focal mass. Tortuous enhan cing vessels in the perihepatic region with the normal patency of th e right portal vein and the confluence. I do not see patency of the l eft Main portal vein branch. Hepatic veins and intrahepatic portion of the IVC are patent. No pericholecystic fluid collection or gallbladder wall thickening. Common bile duct measures 5 mm. PANCREAS: No focal pancreatic mass. No main pancreatic ductal dilatation. No peripancreatic fluid collection. SPLEEN: Measures 8 c m. No focal mass. ADRENAL GLANDS: No nodular lesions. KIDNEYS AND URETERS: Right kidney demonstrates no hydronephrosis or gross mass. Left kid luz has been described with dilatation of the left pelvicalyceal system extrarenal pelvis and displaced left ureter in the anterior medial retroperitoneal compartment BLADDER: Fluid-filled. GASTROINTESTINAL TRA CT: No intestinal obstruction pattern. No pneumoperitoneum. No ascites. No pneumatosis intestinalis Appendix is normal. ABDOMINAL WALL: Fat-containing umbilical hernia and periumbilical hernia. Hyperdense f luid within the left inguinal scrotal region. LYMPH NODES: No rosmery s lymphadenopathy. VASCULAR: Vascular abnormality in the left inguinal region involving the vein and arterie s most likely the left common femoral vein. Intraluminal filling defects within the right superficial femoral vein. There are likely [place]-Ariel bypass femoral, bilaterally.. OSSEOUS STRUCTURES: Multilevel thoracolumbar spondylosis without acute fracture or listhesi s. Degenerative changes in the sacroiliac joints. C T/CT abdomen pelvis w IV con IMPRESSION: Large volume retroperitoneal hemorrhage/hematoma causing extrinsic compression upon the left ureter and hydroureteronephrosis. Vascular injury/pseudoaneurysm versus fistula in the left common femoral vessels shou ld be considered. Concerning emboli/cl ot right common femoral arteries. Discussed with the requesting physician Dr.Andrey Case at 12:03 PM Fleischner guideline s were followed. Electronically ivania d by: Theo Stern MD 01/08/2024 12:21 PM EST Dictated By: Theo Sawyer MD Signed By: <Electronically signed by Theo Steven MD in OV> 01/08/24 1221 DD/ 1105 TD/TT: 01/08/24 1125 Clerical Grader: Fibrinogen Reviewed date:01/08/2024 08:33:39 AM Interpretation: Performing Lab:[facility], [address] [place] [phone] Notes/Report: Fibrinogen 441 259-690 MG/DL Complete Blood Count Auto Di ff Reviewed date:01/08/2024 02:05:08 PM Interpretation: Performing Lab:[facility], [address] [place] [phone] Notes/Report: White Blood Count 20.0 4.8-10.8 X10*3/uL Red Blood Count 3.18 4.60-5.80 X10*6/uL Hemoglobin 10.5 14.0-18.0 g/dl Hematocrit 30.9 42.0-52.0 % Mean Corpuscular Volume 97.2 80.0-98.0 fL Mean Corpuscular Hemoglobin 33.0 27.0-33.0 pg Mean Corpuscular HGB Conc 34.0 31.0-36.0 g/dl Red Cell Distribution Width 12.8 11.0-16.0 % Platelet Count 270 160-400 X10*3/uL Mean Platelet Volume 9.7 9.4-12.4 fL Neutrophils Percent Auto 66.3 45-73 % Imm Gran Pct Auto 0.6 0.0-0.4 % Lymphocytes Percent Auto 19.1 20-40 % Monocytes Percent Auto 11.5 2-11 % Eosinophils Percent Auto 1.9 0-4 % Basophils Percent Auto 0.6 0-2 % NRBC Pct Auto 0.0 0.0-0.2 /100WBC Neutrophils Absolute Auto 13.3 2.0-8.3 x10*3/uL Imm Gran Abs Auto 0.13 0.00-0.03 X10*3/uL Lymphocytes Absolute Auto 3.8 1.2-4.9 X10*3/uL Monocytes Absolute Auto 2.3 0.1-1.2 X10*3/uL Eosinophils Absolute Auto 0.4 0.0-0.4 X10*3/uL Basophils Absolute Auto 0.1 0.0-0.2 X10*3/uL NRBC Abs Auto 0.000 0.0-0.012 X10*3/uL White Blood Count 20.0 4.8-10.8 X10*3/uL Red Blood Count 3.18 4.60-5.80 X10*6/uL Hemoglobin 10.5 14.0-18.0 g/dl Hematocrit 30.9 42.0-52.0 % Mean Corpuscular Volume 97.2 80.0-98.0 fL Mean Corpuscular Hemoglobin 33.0 27.0-33.0 pg Mean Corpuscular HGB Conc 34.0 31.0-36.0 g/dl Red Cell Distribution Width 12.8 11.0-16.0 % Platelet Count 270 160-400 X10*3/uL Mean Platelet Volume 9.7 9.4-12.4 fL Neutrophils Percent Auto 66.3 45-73 % Imm Gran Pct Auto 0.6 0.0-0.4 % Lymphocytes Percent Auto 19.1 20-40 % Monocytes Percent Auto 11.5 2-11 % Eosinophils Percent Auto 1.9 0-4 % Basophils Percent Auto 0.6 0-2 % NRBC Pct Auto 0.0 0.0-0.2 /100WBC Neutrophils Absolute Auto 13.3 2.0-8.3 x10*3/uL Imm Gran Abs Auto 0.13 0.00-0.03 X10*3/uL Lymphocytes Absolute Auto 3.8 1.2-4.9 X10*3/uL Monocytes Absolute Auto 2.3 0.1-1.2 X10*3/uL Eosinophils Absolute Auto 0.4 0.0-0.4 X10*3/uL Basophils Absolute Auto 0.1 0.0-0.2 X10*3/uL NRBC Abs Auto 0.000 0.0-0.012 X10*3/uL CO RRECTED REPORT CO RRECTED REPORT PTT Heparin Drip Reviewed date:01/08/2024 02:05:08 PM Interpretation: Performing Lab:[facility], [address] [place] [phone] Notes/Report: PTT Heparin Drip > 200.0 53-77.9 SEC Results of PTT-HD called to and read back by MARIELA on 01/08/24 at 1155 by FROY. For information regarding the monitoring of heparin therapy, please refer to Pharmacy. Basic Metabolic Panel Reviewed date:01/10/2024 09:47:57 AM Interpretation: Performing Lab:[facility], [address] [place] [phone] Notes/Report: Sodium 134 135-145 mmol/L Potassium 4.9 3.3-5.1 mmol/L Chloride 107 96-108 mmol/L Carbon Dioxide 23 22-29 mmol/L Anion Gap 9 12-20 Blood Urea Nitrogen 13 9-16 mg/dL Creatinine 0.97 0.5-1.4 mg/dL Creatinine Clr Calc Pharmacy 90.5 eGFR (calculated from the MDRD study equation) and eCrCl (calculated from the Cockcroft-Gault equation) are based on different parameters and may not yield comparable results. If eCrCl result is absurd, please check patient's height/weight. Estimated Glomerular Filt Rate > 60 Chronic Kidney Disease: Estimated GFR < 60 mL/min/1.73m2 Severe Kidney Disease: Estimated GFR < 15 mL/min/1.73m2 Glucose Random 161 60-115 mg/dL Calcium 8.4 8.4-10.2 mg/dL Phosphorus Reviewed date:01/10/2024 09:47:57 AM Interpretation: Performing Lab:[facility], [address] [place] [phone] Notes/Report: Phosphorus 4.1 2.7-4.5 mg/dL Magnesium Reviewed date:01/10/2024 09:47:57 AM Interpretation: Performing Lab:[facility], [address] [place] [phone] Notes/Report: Magnesium 1.9 1.6-2.6 mg/dL Complete Blood Count Auto Di ff Reviewed date:01/10/2024 09:47:57 AM Interpretation: Performing Lab:[facility], [address] [place] [phone] Notes/Report: White Blood Count 21.8 4.8-10.8 X10*3/uL Red Blood Count 2.87 4.60-5.80 X10*6/uL Hemoglobin 9.4 14.0-18.0 g/dl Hematocrit 27.9 42.0-52.0 % Mean Corpuscular Volume 97.2 80.0-98.0 fL Mean Corpuscular Hemoglobin 32.8 27.0-33.0 pg Mean Corpuscular HGB Conc 33.7 31.0-36.0 g/dl Red Cell Distribution Width 13.0 11.0-16.0 % Platelet Count 292 160-400 X10*3/uL Mean Platelet Volume 9.7 9.4-12.4 fL Neutrophils Percent Auto 82.9 45-73 % Imm Gran Pct Auto 1.0 0.0-0.4 % Lymphocytes Percent Auto 7.3 20-40 % Monocytes Percent Auto 8.5 2-11 % Eosinophils Percent Auto 0.0 0-4 % Basophils Percent Auto 0.3 0-2 % NRBC Pct Auto 0.0 0.0-0.2 /100WBC Neutrophils Absolute Auto 18.1 2.0-8.3 x10*3/uL Imm Gran Abs Auto 0.22 0.00-0.03 X10*3/uL Lymphocytes Absolute Auto 1.6 1.2-4.9 X10*3/uL Monocytes Absolute Auto 1.9 0.1-1.2 X10*3/uL Eosinophils Absolute Auto 0.0 0.0-0.4 X10*3/uL Basophils Absolute Auto 0.1 0.0-0.2 X10*3/uL NRBC Abs Auto 0.000 0.0-0.012 X10*3/uL White Blood Count 21.8 4.8-10.8 X10*3/uL Red Blood Count 2.87 4.60-5.80 X10*6/uL Hemoglobin 9.4 14.0-18.0 g/dl Hematocrit 27.9 42.0-52.0 % Mean Corpuscular Volume 97.2 80.0-98.0 fL Mean Corpuscular Hemoglobin 32.8 27.0-33.0 pg Mean Corpuscular HGB Conc 33.7 31.0-36.0 g/dl Red Cell Distribution Width 13.0 11.0-16.0 % Platelet Count 292 160-400 X10*3/uL Mean Platelet Volume 9.7 9.4-12.4 fL Neutrophils Percent Auto 82.9 45-73 % Imm Gran Pct Auto 1.0 0.0-0.4 % Lymphocytes Percent Auto 7.3 20-40 % Monocytes Percent Auto 8.5 2-11 % Eosinophils Percent Auto 0.0 0-4 % Basophils Percent Auto 0.3 0-2 % NRBC Pct Auto 0.0 0.0-0.2 /100WBC Neutrophils Absolute Auto 18.1 2.0-8.3 x10*3/uL Imm Gran Abs Auto 0.22 0.00-0.03 X10*3/uL Lymphocytes Absolute Auto 1.6 1.2-4.9 X10*3/uL Monocytes Absolute Auto 1.9 0.1-1.2 X10*3/uL Eosinophils Absolute Auto 0.0 0.0-0.4 X10*3/uL Basophils Absolute Auto 0.1 0.0-0.2 X10*3/uL NRBC Abs Auto 0.000 0.0-0.012 X10*3/uL CO RRECTED REPORT CO RRECTED REPORT SLIDE REVIEW Reviewed date:01/10/2024 09:47:57 AM Interpretation: Performing Lab:[facility], [address] [place] [phone] Notes/Report: SLIDE REVIEW VERIFIED ACT LR Reviewed date:01/11/2024 01:49:27 PM Interpretation: Performing Lab:[facility], [address] [place] [phone] Notes/Report: [id number] HOASHLEY 0855 mulvec ACT 203 [id number] Celite s Results are converted to a reference Celite ACT value in seconds. A reference interval is unavailable for ACT. Complete Blood Count Auto Di ff Reviewed date:01/10/2024 09:47:57 AM Interpretation: Performing Lab:[facility], [address] [place] [phone] Notes/Report: White Blood Count 16.7 4.8-10.8 X10*3/uL Red Blood Count 2.39 4.60-5.80 X10*6/uL Hemoglobin 7.7 14.0-18.0 g/dl Hematocrit 23.0 42.0-52.0 % Mean Corpuscular Volume 96.2 80.0-98.0 fL Mean Corpuscular Hemoglobin 32.2 27.0-33.0 pg Mean Corpuscular HGB Conc 33.5 31.0-36.0 g/dl Red Cell Distribution Width 12.8 11.0-16.0 % Platelet Count 220 160-400 X10*3/uL Mean Platelet Volume 9.0 9.4-12.4 fL Neutrophils Percent Auto 69.8 45-73 % Imm Gran Pct Auto 0.6 0.0-0.4 % Lymphocytes Percent Auto 16.0 20-40 % Monocytes Percent Auto 12.5 2-11 % Eosinophils Percent Auto 0.7 0-4 % Basophils Percent Auto 0.4 0-2 % NRBC Pct Auto 0.0 0.0-0.2 /100WBC Neutrophils Absolute Auto 11.6 2.0-8.3 x10*3/uL Imm Gran Abs Auto 0.10 0.00-0.03 X10*3/uL Lymphocytes Absolute Auto 2.7 1.2-4.9 X10*3/uL Monocytes Absolute Auto 2.1 0.1-1.2 X10*3/uL Eosinophils Absolute Auto 0.1 0.0-0.4 X10*3/uL Basophils Absolute Auto 0.1 0.0-0.2 X10*3/uL NRBC Abs Auto 0.000 0.0-0.012 X10*3/uL White Blood Count 16.7 4.8-10.8 X10*3/uL Red Blood Count 2.39 4.60-5.80 X10*6/uL Hemoglobin 7.7 14.0-18.0 g/dl Hematocrit 23.0 42.0-52.0 % Mean Corpuscular Volume 96.2 80.0-98.0 fL Mean Corpuscular Hemoglobin 32.2 27.0-33.0 pg Mean Corpuscular HGB Conc 33.5 31.0-36.0 g/dl Red Cell Distribution Width 12.8 11.0-16.0 % Platelet Count 220 160-400 X10*3/uL Mean Platelet Volume 9.0 9.4-12.4 fL Neutrophils Percent Auto 69.8 45-73 % Imm Gran Pct Auto 0.6 0.0-0.4 % Lymphocytes Percent Auto 16.0 20-40 % Monocytes Percent Auto 12.5 2-11 % Eosinophils Percent Auto 0.7 0-4 % Basophils Percent Auto 0.4 0-2 % NRBC Pct Auto 0.0 0.0-0.2 /100WBC Neutrophils Absolute Auto 11.6 2.0-8.3 x10*3/uL Imm Gran Abs Auto 0.10 0.00-0.03 X10*3/uL Lymphocytes Absolute Auto 2.7 1.2-4.9 X10*3/uL Monocytes Absolute Auto 2.1 0.1-1.2 X10*3/uL Eosinophils Absolute Auto 0.1 0.0-0.4 X10*3/uL Basophils Absolute Auto 0.1 0.0-0.2 X10*3/uL NRBC Abs Auto 0.000 0.0-0.012 X10*3/uL CO RRECTED REPORT CO RRECTED REPORT Hold Lav - Possible Hematolo gy Reviewed date:01/10/2024 09:47:57 AM Interpretation: Performing Lab:[facility], [address] [place] [phone] Notes/Report: Hold Lav - Possible Hematology SEE NOTE Specimen will be held untested for 8 hours. Call Hematology if testing is desired. Prothrombin Time INR Reviewed date:01/10/2024 09:47:57 AM Interpretation: Performing Lab:[facility], [address] [place] [phone] Notes/Report: Prothrombin Time 11.5 10.9-12.4 SEC INTERNATIONAL NORM RATIO 1.0 0.9-1.1 INTERNATIONAL NORMALIZED RATIO (INR) REFERENCE RANGES [...] mechanical prosthetic heart valves: 2.5 - 3.5 PTT Heparin Drip Reviewed date:01/10/2024 09:47:57 AM Interpretation: Performing Lab:[facility], [address] [place] [phone] Notes/Report: PTT Heparin Drip 28.1 53-77.9 SEC For information regarding the monitoring of heparin therapy, please refer to Pharmacy. Basic Metabolic Panel Reviewed date:01/10/2024 09:47:57 AM Interpretation: Performing Lab:[facility], [address] [place] [phone] Notes/Report: Sodium 136 135-145 mmol/L Potassium 4.5 3.3-5.1 mmol/L Chloride 105 96-108 mmol/L Carbon Dioxide 22 22-29 mmol/L Anion Gap 14 12-20 Blood Urea Nitrogen 17 9-16 mg/dL Creatinine 1.41 0.5-1.4 mg/dL Creatinine Clr Calc Pharmacy 62.3 eGFR (calculated from the MDRD study equation) and eCrCl (calculated from the Cockcroft-Gault equation) are based on different parameters and may not yield comparable results. If eCrCl result is absurd, please check patient's height/weight. Estimated Glomerular Filt Rate 50 Chronic Kidney Disease: Estimated GFR < 60 mL/min/1.73m2 Severe Kidney Disease: Estimated GFR < 15 mL/min/1.73m2 Glucose Random 127 60-115 mg/dL Calcium 8.7 8.4-10.2 mg/dL Phosphorus Reviewed date:01/10/2024 09:47:57 AM Interpretation: Performing Lab:[facility], [address] [place] [phone] Notes/Report: Phosphorus 4.0 2.7-4.5 mg/dL Magnesium Reviewed date:01/10/2024 09:47:57 AM Interpretation: Performing Lab:[facility], [address] [place] [phone] Notes/Report: Magnesium 1.9 1.6-2.6 mg/dL Albumin Level Reviewed date:01/10/2024 09:47:57 AM Interpretation: Performing Lab:[facility], [address] [place] [phone] Notes/Report: Albumin Level 3.2 3.5-5.0 g/dL SLIDE REVIEW Reviewed date:01/10/2024 09:47:57 AM Interpretation: Performing Lab:[facility], [address] [place] [phone] Notes/Report: SLIDE REVIEW VERIFIED Complete Blood Count Auto Di ff Reviewed date:01/10/2024 09:47:57 AM Interpretation: Performing Lab:[facility], [address] [place] [phone] Notes/Report: White Blood Count 10.8 4.8-10.8 X10*3/uL Red Blood Count 2.37 4.60-5.80 X10*6/uL Hemoglobin 7.5 14.0-18.0 g/dl Hematocrit 22.0 42.0-52.0 % Mean Corpuscular Volume 92.8 80.0-98.0 fL Mean Corpuscular Hemoglobin 31.6 27.0-33.0 pg Mean Corpuscular HGB Conc 34.1 31.0-36.0 g/dl Red Cell Distribution Width 14.5 11.0-16.0 % Platelet Count 158 160-400 X10*3/uL Mean Platelet Volume 9.5 9.4-12.4 fL Neutrophils Percent Auto 68.7 45-73 % Imm Gran Pct Auto 0.4 0.0-0.4 % Lymphocytes Percent Auto 16.4 20-40 % Monocytes Percent Auto 12.9 2-11 % Eosinophils Percent Auto 1.2 0-4 % Basophils Percent Auto 0.4 0-2 % NRBC Pct Auto 0.0 0.0-0.2 /100WBC Neutrophils Absolute Auto 7.4 2.0-8.3 x10*3/uL Imm Gran Abs Auto 0.04 0.00-0.03 X10*3/uL Lymphocytes Absolute Auto 1.8 1.2-4.9 X10*3/uL Monocytes Absolute Auto 1.4 0.1-1.2 X10*3/uL Eosinophils Absolute Auto 0.1 0.0-0.4 X10*3/uL Basophils Absolute Auto 0.0 0.0-0.2 X10*3/uL NRBC Abs Auto 0.000 0.0-0.012 X10*3/uL PTT Heparin Drip Reviewed date:01/10/2024 09:47:57 AM Interpretation: Performing Lab:[facility], [address] [place] [phone] Notes/Report: PTT Heparin Drip 34.2 53-77.9 SEC For information regarding the monitoring of heparin therapy, please refer to Pharmacy. Complete Blood Count Auto Di ff Reviewed date:01/10/2024 09:47:57 AM Interpretation: Performing Lab:[facility], [address] [place] [phone] Notes/Report: White Blood Count 8.4 4.8-10.8 X10*3/uL Red Blood Count 2.49 4.60-5.80 X10*6/uL Hemoglobin 7.7 14.0-18.0 g/dl Hematocrit 23.3 42.0-52.0 % Mean Corpuscular Volume 93.6 80.0-98.0 fL Mean Corpuscular Hemoglobin 30.9 27.0-33.0 pg Mean Corpuscular HGB Conc 33.0 31.0-36.0 g/dl Red Cell Distribution Width 14.9 11.0-16.0 % Platelet Count 107 160-400 X10*3/uL Mean Platelet Volume 10.5 9.4-12.4 fL Neutrophils Percent Auto 66.2 45-73 % Imm Gran Pct Auto 0.2 0.0-0.4 % Lymphocytes Percent Auto 18.7 20-40 % Monocytes Percent Auto 12.4 2-11 % Eosinophils Percent Auto 2.0 0-4 % Basophils Percent Auto 0.5 0-2 % NRBC Pct Auto 0.0 0.0-0.2 /100WBC Neutrophils Absolute Auto 5.5 2.0-8.3 x10*3/uL Imm Gran Abs Auto 0.02 0.00-0.03 X10*3/uL Lymphocytes Absolute Auto 1.6 1.2-4.9 X10*3/uL Monocytes Absolute Auto 1.0 0.1-1.2 X10*3/uL Eosinophils Absolute Auto 0.2 0.0-0.4 X10*3/uL Basophils Absolute Auto 0.0 0.0-0.2 X10*3/uL NRBC Abs Auto 0.000 0.0-0.012 X10*3/uL Basic Metabolic Panel Reviewed date:01/10/2024 09:47:57 AM Interpretation: Performing Lab:[address] [phone] Notes/Report: Sodium 135 135-145 mmol/L Potassium 4.5 3.3-5.1 mmol/L Slight Hemolysis.Interpret result with caution. Chloride 106 96-108 mmol/L Carbon Dioxide 19 22-29 mmol/L Anion Gap 15 12-20 Blood Urea Nitrogen 18 9-16 mg/dL Creatinine 0.96 0.5-1.4 mg/dL Creatinine Clr Calc Pharmacy 92.1 eGFR (calculated from the MDRD study equation) and eCrCl (calculated from the Cockcroft-Gault equation) are based on different parameters and may not yield comparable results. If eCrCl result is absurd, please check patient's height/weight. Estimated Glomerular Filt Rate > 60 Chronic Kidney Disease: Estimated GFR < 60 mL/min/1.73m2 Severe Kidney Disease: Estimated GFR < 15 mL/min/1.73m2 Glucose Random 99 60-115 mg/dL Calcium 8.9 8.4-10.2 mg/dL Phosphorus Reviewed date:01/10/2024 09:47:57 AM Interpretation: Performing Lab:[address] [phone] Notes/Report: Phosphorus 3.0 2.7-4.5 mg/dL Magnesium Reviewed date:01/10/2024 09:47:57 AM Interpretation: Performing Lab:[facility], [address] [place] [phone] Notes/Report: Magnesium 2.2 1.6-2.6 mg/dL PTT Heparin Drip Reviewed date:01/10/2024 09:47:57 AM Interpretation: Performing Lab:[facility], [address] [place] [phone] Notes/Report: PTT Heparin Drip 55.2 53-77.9 SEC For information regarding the monitoring of heparin therapy, please refer to Pharmacy. Complete Blood Count Auto Di ff Reviewed date:01/10/2024 09:47:57 AM Interpretation: Performing Lab:[facility], [address] [place] [phone] Notes/Report: White Blood Count 9.2 4.8-10.8 X10*3/uL Red Blood Count 2.58 4.60-5.80 X10*6/uL Hemoglobin 8.0 14.0-18.0 g/dl Hematocrit 23.8 42.0-52.0 % Mean Corpuscular Volume 92.2 80.0-98.0 fL Mean Corpuscular Hemoglobin 31.0 27.0-33.0 pg Mean Corpuscular HGB Conc 33.6 31.0-36.0 g/dl Red Cell Distribution Width 14.6 11.0-16.0 % Platelet Count 129 160-400 X10*3/uL Mean Platelet Volume 9.3 9.4-12.4 fL Neutrophils Percent Auto 72.1 45-73 % Imm Gran Pct Auto 0.5 0.0-0.4 % Lymphocytes Percent Auto 14.0 20-40 % Monocytes Percent Auto 11.4 2-11 % Eosinophils Percent Auto 1.6 0-4 % Basophils Percent Auto 0.4 0-2 % NRBC Pct Auto 0.0 0.0-0.2 /100WBC Neutrophils Absolute Auto 6.6 2.0-8.3 x10*3/uL Imm Gran Abs Auto 0.05 0.00-0.03 X10*3/uL Lymphocytes Absolute Auto 1.3 1.2-4.9 X10*3/uL Monocytes Absolute Auto 1.0 0.1-1.2 X10*3/uL Eosinophils Absolute Auto 0.2 0.0-0.4 X10*3/uL Basophils Absolute Auto 0.0 0.0-0.2 X10*3/uL NRBC Abs Auto 0.000 0.0-0.012 X10*3/uL Hemoglobin and Hematocrit Reviewed date:01/11/2024 01:49:27 PM Interpretation: Performing Lab:[address] [phone] Notes/Report: Hemoglobin 3.3 14.0-18.0 g/dl Results of HGB called to and read back by JONAS on 01/10/24 at 1959 by BORIS. Hematocrit 9.9 42.0-52.0 % Results of HCT called to and read back by JONAS on 01/10/24 at 2000 by BORIS. Pathologist Review - CBC Reviewed date:01/11/2024 01:49:26 PM Interpretation: Performing Lab:[address] [phone] Notes/Report: Pathologist Review - CBC SEE NOTE Normochromic normocytic anemia. - Javi Farias M.D. Pathology Prothrombin Time INR Reviewed date:01/10/2024 09:47:57 AM Interpretation: Performing Lab:[address] [phone] Notes/Report: Prothrombin Time 12.1 10.9-12.4 SEC INTERNATIONAL NORM RATIO 1.0 0.9-1.1 INTERNATIONAL NORMALIZED RATIO (INR) REFERENCE RANGES [...] mechanical prosthetic heart valves: 2.5 - 3.5 PTT Heparin Drip Reviewed date:01/10/2024 09:47:57 AM Interpretation: Performing Lab:[address] [phone] Notes/Report: PTT Heparin Drip 44.5 53-77.9 SEC For information regarding the monitoring of heparin therapy, please refer to Pharmacy. Comprehensive Met. Panel Reviewed date:01/11/2024 01:49:27 PM Interpretation: Performing Lab:[facility], [address] [place] [phone] Notes/Report: Sodium 135 135-145 mmol/L Potassium 4.9 3.3-5.1 mmol/L Chloride 101 96-108 mmol/L Carbon Dioxide 20 22-29 mmol/L Anion Gap 19 12-20 Blood Urea Nitrogen 23 9-16 mg/dL Creatinine 1.35 0.5-1.4 mg/dL Creatinine Clr Calc Pharmacy 65.5 eGFR (calculated from the MDRD study equation) and eCrCl (calculated from the Cockcroft-Gault equation) are based on different parameters and may not yield comparable results. If eCrCl result is absurd, please check patient's height/weight. Estimated Glomerular Filt Rate 53 Chronic Kidney Disease: Estimated GFR < 60 mL/min/1.73m2 Severe Kidney Disease: Estimated GFR < 15 mL/min/1.73m2 Glucose Random 182 60-115 mg/dL Calcium 8.4 8.4-10.2 mg/dL Bilirubin Total 0.9 0.0-1.0 mg/dL Aspartate Amino Transferase 32 5-37 U/L Alanine Aminotransferase 15 0-40 U/L Total Protein 5.7 6.5-8.0 g/dL Albumin Level 3.7 3.5-5.0 g/dL Alkaline Phosphatase 55 39-117 U/L Basic Metabolic Panel Reviewed date:01/10/2024 09:47:57 AM Interpretation: Performing Lab:[facility], [address] [place] [phone] Notes/Report: Sodium 136 135-145 mmol/L Potassium 4.1 3.3-5.1 mmol/L Chloride 103 96-108 mmol/L Carbon Dioxide 25 22-29 mmol/L Anion Gap 12 12-20 Blood Urea Nitrogen 16 9-16 mg/dL Creatinine 0.88 0.5-1.4 mg/dL Creatinine Clr Calc Pharmacy 100.5 eGFR (calculated from the MDRD study equation) and eCrCl (calculated from the Cockcroft-Gault equation) are based on different parameters and may not yield comparable results. If eCrCl result is absurd, please check patient's height/weight. Estimated Glomerular Filt Rate > 60 Chronic Kidney Disease: Estimated GFR < 60 mL/min/1.73m2 Severe Kidney Disease: Estimated GFR < 15 mL/min/1.73m2 Glucose Random 102 60-115 mg/dL Calcium 9.0 8.4-10.2 mg/dL Lactic Acid Reviewed date:01/11/2024 01:49:27 PM Interpretation: Performing Lab:[facility], [address] [place] [phone] Notes/Report: Lactic Acid 7.8 0.5-2.0 mmol/L Critical value for test(s): LACTA Results called to and read back by:VIKRAM Person calling: TANG Date:01-10-2024 Time:2121 Phosphorus Reviewed date:01/10/2024 09:47:57 AM Interpretation: Performing Lab:[facility], [address] [place] [phone] Notes/Report: Phosphorus 2.8 2.7-4.5 mg/dL Magnesium Reviewed date:01/10/2024 09:47:57 AM Interpretation: Performing Lab:[facility], [address] [place] [phone] Notes/Report: Magnesium 2.0 1.6-2.6 mg/dL Albumin Level Reviewed date:01/10/2024 09:47:57 AM Interpretation: Performing Lab:[facility], [address] [place] [phone] Notes/Report: Albumin Level 3.5 3.5-5.0 g/dL Lactic Acid-LAB USE ONLY Reviewed date:01/11/2024 01:49:27 PM Interpretation: Performing Lab:[facility], [address] [place] [phone] Notes/Report: Lactic Acid-LAB USE ONLY 1.9 0.5-2.0 mmol/L Venous Blood Gases - POC Reviewed date:01/11/2024 01:49:27 PM Interpretation: Performing Lab:[facility], [address] [place] [phone] Notes/Report: VBG pH 7.42 7.32-7.43 METER #: [id number] 0250C VBG pCO2 25 METER #: [id number] 0250C VBG pO2 76 METER #: [id number] 0250C VBG Base Excess -6.7 METER #: [id number] VBG HCO3 16 22-26 mmol/L METER #: [id number] 0250C VBG O2 % Saturation TNP Hold Green Gel Reviewed date:01/11/2024 01:49:27 PM Interpretation: Performing Lab:[facility], [address] [place] [phone] Notes/Report: Hold Green Gel See Note Specimen held untested for 24 hours; Call to request Chemistry testing. CT abdomen pelvis w con Reviewed date:01/11/2024 01:49:27 PM Interpretation: Performing Lab: Notes/Report: [address] [place] [address] CT Scan Report Signed Patient: Zan Encinas MR#: [id number] : 1960 Acct:[id number] Age/Sex: 63 / M ADM Date: 01/07/24 Loc: .ICU 255-[address]: Bimal Knott MD Ordering Physician: Som Vela NP Date of Service: 01/10/24 Procedure(s): CT abdomen pelvis w IV con Accession Number(s): [id number] cc: Quinton Callahan MD; Som Vela NP EXAMINATION: CT ABDOMEN AND PELVIS WITH CONTRAST CLINICAL INFORMATION: Abdominal pain. Question bleed. COMPARISON: Most recent CT abdomen/pelvis dated 01/08/2024. TECHNIQUE: Multidetector volumetric images were obtained from the superior aspect of the liver through the pubic symphysis following administration 85 mL of Omnipaque 350 intravenous contrast. Sagittal and coronal reformatted images were obtained on the technologist's workstation. Oral contrast: No This CT examination was performed using dose optimization techniques as appropriate, variously including the following: *Automated exposure control *Adjustment of mA and/or kV according to patient size (this includes techniques or standardized protocols for targeted exams where dose is matched to indication/reason for exam; i.e. extremities or head) *Use of iterative reconstruction technique DLP: 1106 mGy-cm. FINDINGS: LUNG BASES: Small left-sided pleural effusion with adjacent atelectasis, new when compared to the prior examination. LIVER, GALLBLADDER, AND BILIARY TREE: The liver is normal in size, shape, and attenuation. No focal hepatic lesion or biliary ductal dilatation is present. The gallbladder is unremarkable with no evidence of radiopaque gallstones, gallbladder wall thickening, or obvious pericholecystic inflammatory changes. PANCREAS: Unremarkable. SPLEEN: Unremarkable. ADRENAL GLANDS: Unremarkable. KIDNEYS AND URETERS: There is a large, increasing left renal subcapsular hematoma with layering hyperdensity now measuring approximately 8.5 x 9.6 x 17.5 cm (AP x ML x CC) (previously 3.0 x 4.4 x 4.4 cm). There is severe mass effect on the left renal parenchyma with severe left-sided hydronephrosis and proximal hydroureter. There is hyperdensity within the severely dilated collecting system, likely representing blood products. The distal ureter is nondilated. Normal right renal shape and parenchymal density. No right renal parenchymal lesion. No right-sided hydronephrosis or nephrolithiasis. No renal or ureteral stone. BLADDER: Nondistended with hyperdensity in the lumen, consistent with blood or blood products. GASTROINTESTINAL TRACT: No small or large bowel obstruction. No bowel wall thickening or inflammatory change. Appendix not identified. PERITONEAL CAVITY: Redemonstration of a large left retroperitoneal hematoma which extends from the left angle region proximally to the level of the spleen. This appears similar in size when compared to the prior examination. Increasing abdominal ascites. No intra-abdominal free air. ABDOMINAL WALL: No significant hernia is appreciated. LYMPH NODES: No significant lymphadenopathy. VASCULAR: No abdominal aortic dilatation or dissection. Scattered atherosclerotic calcifications. Surgical clips in the left angle region. PELVIC VISCERA: Prostate calcifications. OSSEOUS STRUCTURES: No acute osseous abnormality. CT/CT abdomen pelvis w IV con IMPRESSION: 1. Large left renal subcapsular hematoma, increased in size when compared to the prior examination, now measuring up to 17.5 cm (previously 3.0 cm). Severe mass effect on the left renal parenchyma with severe left-sided hydronephrosis and proximal hydroureter. Hyperdensity within the severely dilated collecting system, likely representing blood products. The distal ureter is nondilated. 2. Redemonstration of a large left retroperitoneal hematoma, similar in size when compared to the prior examination. 3. Increasing abdominal ascites. No intra-abdominal free air. 4. Small left-sided pleural effusion with adjacent atelectasis, new when compared to the prior examination. Fleischner guidelines were followed. This critical result was discussed with Som Vela NP at 9:44 PM on 01/10/2024 and it was ascertained that the content and urgency of the report was understood at the time of direct communication. Electronically signed by: Jarret Ferrara MD 01/10/2024 10:00 PM [facility] Workstation: [id number] Dictated By: Jarret Ferrara MD Signed By: <Electronically signed by Jarret Ferrara MD in OV> 01/10/242199 DD/ 21 TD/TT: 01/10/242021 Clerical Grader: [place] [id number] CT Scan Report Signed Patient: Zan Encinas MR#: [id number] : 1960 Acct:[id number] Age/Sex: 63 / M ADM Date: 01/07/24 Loc: .ICU 255-[address]: Bimal Knott MD Ordering Physician: Som Vela NP Date of Service: 01/10/24 Procedure(s): CT abd omen pelvis w IV con Accession Number(s): [id number] cc: Quinton Callahan MD; Som Vela NP EXAMINATION: CT ABDOMEN AND PELVI S WITH CONTRAST CLINICAL INFORMATION: Abdominal pain. Ques tion bleed. COMPARISON: Most recent CT abdomen/pelvis dated 01/08/2024. TECHNIQUE: Multidetector volume tric images were obtained from the superior aspect of the liver through the pubic symphysis following administration 85 mL of Omnipaque 350 intravenous contrast. Sagittal and coronal reformatted images were obtained on the technologist's workstation. Oral contrast: No This CT examination was performed using dose optimization techniques as appropriate, various ly including the following: *Automated exposure control *Adjustment of mA an d/or kV according to patient size (this includes techniques or standardized protocols for targeted exams where dose is matched to indication/reason for exam; i.e. extremities or head) *Use of iterative reconstruction technique DLP: 1106 mGy-cm. FINDINGS: LUNG BASES: Small left-sided pleural effusion with adjacent atelectasis, new whe n compared to the prior examination. LIVER, GALLBLADDER, AND BILIARY TREE: The liver is normal in size, shape, and attenuati on. No focal hepatic lesion or biliary ductal dilatation is presen t. The gallbladder is unremarkable with no evidence of radiopaque gallstones, gallbladder wall thickening, or obvious pericholecystic inflammatory changes. PANCREAS: Unremarkable. SPLEEN: Unremarkable. ADRENAL GLANDS: Unremarkable. KIDNEYS AND URETERS: There is a large, increasing left renal subcapsular hematoma with layering hyperdensity now measuring approximately 8.5 x 9.6 x 17.5 cm (AP x ML x CC) (previously 3.0 x 4.4 x 4.4 cm). There is severe mass effect on the left renal parenchyma with severe left-miryam ed hydronephrosis and proximal hydroureter. There is hyperdensity with in the severely dilated collecting system, likely representing blood products. The distal ureter is nondilated. Normal right renal s hape and parenchymal density. No right renal parenchymal lesion. No right-sided hydronephrosis or nephrolithiasis. No renal or ureteral stone. BLADDER: Nondistende d with hyperdensity in the lumen, consistent with blood or blood products. GASTROINTESTINAL TRA CT: No small or large bowel obstruction. No bowel wall thickening or inflammatory change. Appendix not identified. PERITONEAL CAVITY: Redemonstration of a large left retroperitoneal hematoma which exten ds from the left angle region proximally to the level of the spleen. This appears similar in size when compared to the prior examination. Increasing abdominal ascites. No intra-abdominal free air. ABDOMINAL WALL: No significant hernia is appreciated. LYMPH NODES: No significant lymphadenopathy. VASCULAR: No abdomin al aortic dilatation or dissection. Scattered atherosclerotic calcifications. Surgical clips in the left angle region. PELVIC VISCERA: Pros brandon calcifications. OSSEOUS STRUCTURES: No acute osseous abnormality. C T/CT abdomen pelvis w IV con IMPRESSION: 1. Large left renal subcapsular hematoma, increased in size when compared to the prio r examination, now measuring up to 17.5 cm (previously 3.0 cm). Severe mass effect on the left renal parenchyma with severe left-miryam ed hydronephrosis and proximal hydroureter. Hyperdensity within the severely dilated collecting system, likely representing blood products. The distal ureter is nondilated. 2. Redemonstration o f a large left retroperitoneal hematoma, similar in size when compared t o the prior examination. 3. Increasing abdomi nal ascites. No intra-abdominal free air. 4. Small left-sided pleural effusion with adjacent atelectasis, new when compared to the prior examination. Fleischner guideline s were followed. This critical result was discussed with Som Vela NP at 9:44 PM on 01/10/2024 and it was ascertained that the content and urgency of the report was understood at the time of direct communication. Electronically ivania d by: Jarret Ferrara MD 01/10/2024 10:00 PM [facility] Dictated By: Jarret Ferrara MD Signed By: <Electronically signed by Jarret Ferrara MD in OV> 01/10/242199 DD/ 21 TD/TT: 01/10/242021 Clerical Grader: PTT Heparin Drip Reviewed date:01/11/2024 01:49:27 PM Interpretation: Performing Lab:[address] [phone] Notes/Report: PTT Heparin Drip 80.2 53-77.9 SEC For information regarding the monitoring of heparin therapy, please refer to Pharmacy. PTT Heparin Drip Reviewed date:01/11/2024 01:49:27 PM Interpretation: Performing Lab:[facility], [address] [place] [phone] Notes/Report: PTT Heparin Drip 66.0 53-77.9 SEC For information regarding the monitoring of heparin therapy, please refer to Pharmacy. Complete Blood Count Auto Di ff Reviewed date:01/11/2024 01:49:26 PM Interpretation: Performing Lab:[facility], [address] [place] [phone] Notes/Report: White Blood Count 17.6 4.8-10.8 X10*3/uL Red Blood Count 1.13 4.60-5.80 X10*6/uL Hemoglobin 3.7 14.0-18.0 g/dl Results of HGB called to and read back by JONAS on 01/10/24 at 1916 by BORIS. Hematocrit 10.5 42.0-52.0 % Results of HCT called to and read back by JONAS on 01/10/24 at 1918 by BORIS. Mean Corpuscular Volume 92.9 80.0-98.0 fL Mean Corpuscular Hemoglobin 32.7 27.0-33.0 pg Mean Corpuscular HGB Conc 35.2 31.0-36.0 g/dl Red Cell Distribution Width 14.5 11.0-16.0 % Platelet Count 296 160-400 X10*3/uL Mean Platelet Volume 10.1 9.4-12.4 fL Neutrophils Percent Auto 86.3 45-73 % Imm Gran Pct Auto 0.8 0.0-0.4 % Lymphocytes Percent Auto 4.7 20-40 % Monocytes Percent Auto 7.8 2-11 % Eosinophils Percent Auto 0.2 0-4 % Basophils Percent Auto 0.2 0-2 % NRBC Pct Auto 0.0 0.0-0.2 /100WBC Neutrophils Absolute Auto 15.2 2.0-8.3 x10*3/uL Imm Gran Abs Auto 0.14 0.00-0.03 X10*3/uL Lymphocytes Absolute Auto 0.8 1.2-4.9 X10*3/uL Monocytes Absolute Auto 1.4 0.1-1.2 X10*3/uL Eosinophils Absolute Auto 0.0 0.0-0.4 X10*3/uL Basophils Absolute Auto 0.0 0.0-0.2 X10*3/uL NRBC Abs Auto 0.000 0.0-0.012 X10*3/uL Complete Blood Count no Diff Reviewed date:01/12/2024 07:43:31 AM Interpretation: Performing Lab:[facility], [address] [place] [phone] Notes/Report: White Blood Count 12.3 4.8-10.8 X10*3/uL Red Blood Count 2.38 4.60-5.80 X10*6/uL Hemoglobin 7.5 14.0-18.0 g/dl Hematocrit 21.1 42.0-52.0 % Mean Corpuscular Volume 88.7 80.0-98.0 fL Mean Corpuscular Hemoglobin 31.5 27.0-33.0 pg Mean Corpuscular HGB Conc 35.5 31.0-36.0 g/dl Red Cell Distribution Width 15.3 11.0-16.0 % Platelet Count 206 160-400 X10*3/uL Mean Platelet Volume 9.5 9.4-12.4 fL NRBC Pct Auto 0.0 0.0-0.2 /100WBC NRBC Abs Auto 0.000 0.0-0.012 X10*3/uL Complete Blood Count Auto Di ff Reviewed date:01/11/2024 01:49:26 PM Interpretation: Performing Lab:[facility], [address] [place] [phone] Notes/Report: White Blood Count 18.2 4.8-10.8 X10*3/uL Red Blood Count 2.15 4.60-5.80 X10*6/uL Hemoglobin 6.7 14.0-18.0 g/dl Results of HEMOGLOBIN called to and read back by SARTHAK Results of HEMOGLOBIN called to and read back by SARTHAK on 01/11/24 at 0122 by JEWELS. on 01/11/24 at 0122 by JEWELS. Hematocrit 18.7 42.0-52.0 % Results of HEMATOCRIT called to and read back by SARTHAK Results of HEMATOCRIT called to and read back by SARTHAK on 01/11/24 at 0123 by JEWELS. on 01/11/24 at 0123 by JEWELS. Mean Corpuscular Volume 87.0 80.0-98.0 fL Mean Corpuscular Hemoglobin 31.2 27.0-33.0 pg Mean Corpuscular HGB Conc 35.8 31.0-36.0 g/dl Red Cell Distribution Width 14.1 11.0-16.0 % Platelet Count 197 160-400 X10*3/uL Mean Platelet Volume 9.1 9.4-12.4 fL Neutrophils Percent Auto 80.3 45-73 % Imm Gran Pct Auto 0.9 0.0-0.4 % Lymphocytes Percent Auto 5.8 20-40 % Monocytes Percent Auto 12.8 2-11 % Eosinophils Percent Auto 0.0 0-4 % Basophils Percent Auto 0.2 0-2 % NRBC Pct Auto 0.0 0.0-0.2 /100WBC Neutrophils Absolute Auto 14.6 2.0-8.3 x10*3/uL Imm Gran Abs Auto 0.16 0.00-0.03 X10*3/uL Lymphocytes Absolute Auto 1.1 1.2-4.9 X10*3/uL Monocytes Absolute Auto 2.3 0.1-1.2 X10*3/uL Eosinophils Absolute Auto 0.0 0.0-0.4 X10*3/uL Basophils Absolute Auto 0.0 0.0-0.2 X10*3/uL NRBC Abs Auto 0.000 0.0-0.012 X10*3/uL White Blood Count 18.2 4.8-10.8 X10*3/uL Red Blood Count 2.15 4.60-5.80 X10*6/uL Hemoglobin 6.7 14.0-18.0 g/dl Results of HEMOGLOBIN called to and read back by SARTHAK Results of HEMOGLOBIN called to and read back by SARTHAK on 01/11/24 at 0122 by JEWELS. on 01/11/24 at 0122 by JEWELS. Hematocrit 18.7 42.0-52.0 % Results of HEMATOCRIT called to and read back by SARTHAK Results of HEMATOCRIT called to and read back by SARTHAK on 01/11/24 at 0123 by JEWELS. on 01/11/24 at 0123 by JEWELS. Mean Corpuscular Volume 87.0 80.0-98.0 fL Mean Corpuscular Hemoglobin 31.2 27.0-33.0 pg Mean Corpuscular HGB Conc 35.8 31.0-36.0 g/dl Red Cell Distribution Width 14.1 11.0-16.0 % Platelet Count 197 160-400 X10*3/uL Mean Platelet Volume 9.1 9.4-12.4 fL Neutrophils Percent Auto 80.3 45-73 % Imm Gran Pct Auto 0.9 0.0-0.4 % Lymphocytes Percent Auto 5.8 20-40 % Monocytes Percent Auto 12.8 2-11 % Eosinophils Percent Auto 0.0 0-4 % Basophils Percent Auto 0.2 0-2 % NRBC Pct Auto 0.0 0.0-0.2 /100WBC Neutrophils Absolute Auto 14.6 2.0-8.3 x10*3/uL Imm Gran Abs Auto 0.16 0.00-0.03 X10*3/uL Lymphocytes Absolute Auto 1.1 1.2-4.9 X10*3/uL Monocytes Absolute Auto 2.3 0.1-1.2 X10*3/uL Eosinophils Absolute Auto 0.0 0.0-0.4 X10*3/uL Basophils Absolute Auto 0.0 0.0-0.2 X10*3/uL NRBC Abs Auto 0.000 0.0-0.012 X10*3/uL CO RRECTED REPORT CO RRECTED REPORT Basic Metabolic Panel Reviewed date:01/11/2024 01:49:26 PM Interpretation: Performing Lab:[facility], [address] [place] [phone] Notes/Report: Sodium 135 135-145 mmol/L Potassium 4.6 3.3-5.1 mmol/L Chloride 101 96-108 mmol/L Carbon Dioxide 24 22-29 mmol/L Anion Gap 15 12-20 Blood Urea Nitrogen 26 9-16 mg/dL Creatinine 1.17 0.5-1.4 mg/dL Creatinine Clr Calc Pharmacy 75.6 eGFR (calculated from the MDRD study equation) and eCrCl (calculated from the Cockcroft-Gault equation) are based on different parameters and may not yield comparable results. If eCrCl result is absurd, please check patient's height/weight. Estimated Glomerular Filt Rate > 60 Chronic Kidney Disease: Estimated GFR < 60 mL/min/1.73m2 Severe Kidney Disease: Estimated GFR < 15 mL/min/1.73m2 Glucose Random 129 60-115 mg/dL Calcium 9.2 8.4-10.2 mg/dL Phosphorus Reviewed date:01/11/2024 01:49:26 PM Interpretation: Performing Lab:[address] [phone] Notes/Report: Phosphorus 4.3 2.7-4.5 mg/dL Magnesium Reviewed date:01/11/2024 01:49:26 PM Interpretation: Performing Lab:[facility], [address] [place] [phone] Notes/Report: Magnesium 2.2 1.6-2.6 mg/dL Albumin Level Reviewed date:01/11/2024 01:49:26 PM Interpretation: Performing Lab:[address] [phone] Notes/Report: Albumin Level 3.6 3.5-5.0 g/dL SLIDE REVIEW Reviewed date:01/11/2024 01:49:26 PM Interpretation: Performing Lab:[facility], [address] [place] [phone] Notes/Report: SLIDE REVIEW VERIFIED Venous Blood Gases - POC Reviewed date:01/11/2024 01:49:26 PM Interpretation: Performing Lab:[address] [phone] Notes/Report: VBG pH 7.49 7.32-7.43 METER #: [id number] additional_comment: Jeovany burgess elva saucedo VBG pCO2 35 METER #: [id number] additional_comment: Jeovany burgess elva southrim[place]a VBG pO2 57 METER #: [id number] additional_comment: Jeovany burgess elva saucedo VBG Base Excess 4.0 METER #: [id number] additional_comment: Jeovany burgess elva saucedo VBG HCO3 27 22-26 mmol/L METER #: [id number] additional_comment: Jeovany burgess elva [place]a VBG O2 % Saturation 92.0 METER #: [id number] additional_comment: Jeovany burgess elva saucedo Venous Blood Gases - POC Reviewed date:01/11/2024 01:49:26 PM Interpretation: Performing Lab:[facility], [address] [place] [phone] Notes/Report: VBG pH 7.42 7.32-7.43 METER #: [id number] additional_comment: Jeovany stevenson henriquemarek VBG pCO2 42 METER #: [id number] additional_comment: Jeovany aguilarbb henriquezc VBG pO2 35 METER #: [id number] additional_comment: Jeovany aguilarbb henriquezc VBG Base Excess 3.7 METER #: [id number] additional_comment: Jeovany stevenson henriquezcharbel VBG HCO3 28 22-26 mmol/L METER #: [id number] additional_comment: Jeovany stevenson henriquezc VBG O2 % Saturation 62.0 METER #: [id number] additional_comment: Jeovany stevenson henriquezc Complete Blood Count Auto Di ff Reviewed date:01/11/2024 01:49:26 PM Interpretation: Performing Lab:[facility], [address] [place] [phone] Notes/Report: White Blood Count 14.9 4.8-10.8 X10*3/uL Red Blood Count 2.68 4.60-5.80 X10*6/uL Hemoglobin 8.4 14.0-18.0 g/dl Hematocrit 23.4 42.0-52.0 % Mean Corpuscular Volume 87.3 80.0-98.0 fL Mean Corpuscular Hemoglobin 31.3 27.0-33.0 pg Mean Corpuscular HGB Conc 35.9 31.0-36.0 g/dl Red Cell Distribution Width 14.0 11.0-16.0 % Platelet Count 192 160-400 X10*3/uL Mean Platelet Volume 9.1 9.4-12.4 fL Neutrophils Percent Auto 76.7 45-73 % Imm Gran Pct Auto 0.7 0.0-0.4 % Lymphocytes Percent Auto 8.9 20-40 % Monocytes Percent Auto 13.5 2-11 % Eosinophils Percent Auto 0.0 0-4 % Basophils Percent Auto 0.2 0-2 % NRBC Pct Auto 0.0 0.0-0.2 /100WBC Neutrophils Absolute Auto 11.4 2.0-8.3 x10*3/uL Imm Gran Abs Auto 0.11 0.00-0.03 X10*3/uL Lymphocytes Absolute Auto 1.3 1.2-4.9 X10*3/uL Monocytes Absolute Auto 2.0 0.1-1.2 X10*3/uL Eosinophils Absolute Auto 0.0 0.0-0.4 X10*3/uL Basophils Absolute Auto 0.0 0.0-0.2 X10*3/uL NRBC Abs Auto 0.000 0.0-0.012 X10*3/uL CO RRECTED REPORT Complete Blood Count Auto Di ff Reviewed date:01/11/2024 08:19:34 PM Interpretation: Performing Lab:[facility], [address] [place] [phone] Notes/Report: White Blood Count 14.3 4.8-10.8 X10*3/uL Red Blood Count 2.58 4.60-5.80 X10*6/uL Hemoglobin 8.2 14.0-18.0 g/dl Hematocrit 22.7 42.0-52.0 % Mean Corpuscular Volume 88.0 80.0-98.0 fL Mean Corpuscular Hemoglobin 31.8 27.0-33.0 pg Mean Corpuscular HGB Conc 36.1 31.0-36.0 g/dl Red Cell Distribution Width 14.6 11.0-16.0 % Platelet Count 221 160-400 X10*3/uL Mean Platelet Volume 9.6 9.4-12.4 fL Neutrophils Percent Auto 75.1 45-73 % Imm Gran Pct Auto 0.6 0.0-0.4 % Lymphocytes Percent Auto 9.6 20-40 % Monocytes Percent Auto 14.3 2-11 % Eosinophils Percent Auto 0.1 0-4 % Basophils Percent Auto 0.3 0-2 % NRBC Pct Auto 0.1 0.0-0.2 /100WBC Neutrophils Absolute Auto 10.7 2.0-8.3 x10*3/uL Imm Gran Abs Auto 0.09 0.00-0.03 X10*3/uL Lymphocytes Absolute Auto 1.4 1.2-4.9 X10*3/uL Monocytes Absolute Auto 2.1 0.1-1.2 X10*3/uL Eosinophils Absolute Auto 0.0 0.0-0.4 X10*3/uL Basophils Absolute Auto 0.0 0.0-0.2 X10*3/uL NRBC Abs Auto 0.020 0.0-0.012 X10*3/uL White Blood Count 14.3 4.8-10.8 X10*3/uL Red Blood Count 2.58 4.60-5.80 X10*6/uL Hemoglobin 8.2 14.0-18.0 g/dl Hematocrit 22.7 42.0-52.0 % Mean Corpuscular Volume 88.0 80.0-98.0 fL Mean Corpuscular Hemoglobin 31.8 27.0-33.0 pg Mean Corpuscular HGB Conc 36.1 31.0-36.0 g/dl Red Cell Distribution Width 14.6 11.0-16.0 % Platelet Count 221 160-400 X10*3/uL Mean Platelet Volume 9.6 9.4-12.4 fL Neutrophils Percent Auto 75.1 45-73 % Imm Gran Pct Auto 0.6 0.0-0.4 % Lymphocytes Percent Auto 9.6 20-40 % Monocytes Percent Auto 14.3 2-11 % Eosinophils Percent Auto 0.1 0-4 % Basophils Percent Auto 0.3 0-2 % NRBC Pct Auto 0.1 0.0-0.2 /100WBC Neutrophils Absolute Auto 10.7 2.0-8.3 x10*3/uL Imm Gran Abs Auto 0.09 0.00-0.03 X10*3/uL Lymphocytes Absolute Auto 1.4 1.2-4.9 X10*3/uL Monocytes Absolute Auto 2.1 0.1-1.2 X10*3/uL Eosinophils Absolute Auto 0.0 0.0-0.4 X10*3/uL Basophils Absolute Auto 0.0 0.0-0.2 X10*3/uL NRBC Abs Auto 0.020 0.0-0.012 X10*3/uL CO RRECTED REPORT CO RRECTED REPORT SLIDE REVIEW Reviewed date:01/11/2024 08:19:34 PM Interpretation: Performing Lab:[facility], [address] [place] [phone] Notes/Report: SLIDE REVIEW VERIFIED Basic Metabolic Panel Reviewed date:01/12/2024 07:43:31 AM Interpretation: Performing Lab:[facility], [address] [place] [phone] Notes/Report: Sodium 133 135-145 mmol/L Potassium 4.0 3.3-5.1 mmol/L Chloride 102 96-108 mmol/L Carbon Dioxide 27 22-29 mmol/L Anion Gap 8 12-20 Blood Urea Nitrogen 27 9-16 mg/dL Creatinine 1.02 0.5-1.4 mg/dL Creatinine Clr Calc Pharmacy 86.8 eGFR (calculated from the MDRD study equation) and eCrCl (calculated from the Cockcroft-Gault equation) are based on different parameters and may not yield comparable results. If eCrCl result is absurd, please check patient's height/weight. Estimated Glomerular Filt Rate > 60 Chronic Kidney Disease: Estimated GFR < 60 mL/min/1.73m2 Severe Kidney Disease: Estimated GFR < 15 mL/min/1.73m2 Glucose Random 107 60-115 mg/dL Calcium 8.8 8.4-10.2 mg/dL Phosphorus Reviewed date:01/12/2024 07:43:31 AM Interpretation: Performing Lab:[address] [phone] Notes/Report: Phosphorus 2.7 2.7-4.5 mg/dL Magnesium Reviewed date:01/12/2024 07:43:31 AM Interpretation: Performing Lab:[facility], [address] [place] [phone] Notes/Report: Magnesium 2.4 1.6-2.6 mg/dL Complete Blood Count no Diff Reviewed date:01/13/2024 07:58:52 PM Interpretation: Performing Lab:[facility], [address] [place] [phone] Notes/Report: White Blood Count 11.9 4.8-10.8 X10*3/uL Red Blood Count 2.51 4.60-5.80 X10*6/uL Hemoglobin 7.8 14.0-18.0 g/dl Hematocrit 22.7 42.0-52.0 % Mean Corpuscular Volume 90.4 80.0-98.0 fL Mean Corpuscular Hemoglobin 31.1 27.0-33.0 pg Mean Corpuscular HGB Conc 34.4 31.0-36.0 g/dl Red Cell Distribution Width 14.9 11.0-16.0 % Platelet Count 226 160-400 X10*3/uL Mean Platelet Volume 9.7 9.4-12.4 fL NRBC Pct Auto 0.0 0.0-0.2 /100WBC NRBC Abs Auto 0.000 0.0-0.012 X10*3/uL Complete Blood Count Auto Di ff Reviewed date:01/12/2024 07:43:31 AM Interpretation: Performing Lab:[facility], [address] [place] [phone] Notes/Report: White Blood Count 11.0 4.8-10.8 X10*3/uL Red Blood Count 2.39 4.60-5.80 X10*6/uL Hemoglobin 7.6 14.0-18.0 g/dl Hematocrit 21.3 42.0-52.0 % Mean Corpuscular Volume 89.1 80.0-98.0 fL Mean Corpuscular Hemoglobin 31.8 27.0-33.0 pg Mean Corpuscular HGB Conc 35.7 31.0-36.0 g/dl Red Cell Distribution Width 15.1 11.0-16.0 % Platelet Count TNP 160-400 X10*3/uL Mean Platelet Volume 10.7 9.4-12.4 fL Neutrophils Percent Auto 73.2 45-73 % Imm Gran Pct Auto 0.7 0.0-0.4 % Lymphocytes Percent Auto 10.5 20-40 % Monocytes Percent Auto 14.6 2-11 % Eosinophils Percent Auto 0.5 0-4 % Basophils Percent Auto 0.5 0-2 % NRBC Pct Auto 0.3 0.0-0.2 /100WBC Neutrophils Absolute Auto 8.0 2.0-8.3 x10*3/uL Imm Gran Abs Auto 0.08 0.00-0.03 X10*3/uL Lymphocytes Absolute Auto 1.2 1.2-4.9 X10*3/uL Monocytes Absolute Auto 1.6 0.1-1.2 X10*3/uL Eosinophils Absolute Auto 0.1 0.0-0.4 X10*3/uL Basophils Absolute Auto 0.1 0.0-0.2 X10*3/uL NRBC Abs Auto 0.030 0.0-0.012 X10*3/uL White Blood Count 11.0 4.8-10.8 X10*3/uL Red Blood Count 2.39 4.60-5.80 X10*6/uL Hemoglobin 7.6 14.0-18.0 g/dl Hematocrit 21.3 42.0-52.0 % Mean Corpuscular Volume 89.1 80.0-98.0 fL Mean Corpuscular Hemoglobin 31.8 27.0-33.0 pg Mean Corpuscular HGB Conc 35.7 31.0-36.0 g/dl Red Cell Distribution Width 15.1 11.0-16.0 % Platelet Count TNP 160-400 X10*3/uL Mean Platelet Volume 10.7 9.4-12.4 fL Neutrophils Percent Auto 73.2 45-73 % Imm Gran Pct Auto 0.7 0.0-0.4 % Lymphocytes Percent Auto 10.5 20-40 % Monocytes Percent Auto 14.6 2-11 % Eosinophils Percent Auto 0.5 0-4 % Basophils Percent Auto 0.5 0-2 % NRBC Pct Auto 0.3 0.0-0.2 /100WBC Neutrophils Absolute Auto 8.0 2.0-8.3 x10*3/uL Imm Gran Abs Auto 0.08 0.00-0.03 X10*3/uL Lymphocytes Absolute Auto 1.2 1.2-4.9 X10*3/uL Monocytes Absolute Auto 1.6 0.1-1.2 X10*3/uL Eosinophils Absolute Auto 0.1 0.0-0.4 X10*3/uL Basophils Absolute Auto 0.1 0.0-0.2 X10*3/uL NRBC Abs Auto 0.030 0.0-0.012 X10*3/uL CO RRECTED REPORT CO RRECTED REPORT Comprehensive Met. Panel Reviewed date:01/12/2024 07:43:31 AM Interpretation: Performing Lab:[facility], [address] [place] [phone] Notes/Report: Sodium 139 135-145 mmol/L Potassium 3.9 3.3-5.1 mmol/L Chloride 103 96-108 mmol/L Carbon Dioxide 26 22-29 mmol/L Anion Gap 14 12-20 Blood Urea Nitrogen 25 9-16 mg/dL Creatinine 0.90 0.5-1.4 mg/dL Creatinine Clr Calc Pharmacy 100.0 eGFR (calculated from the MDRD study equation) and eCrCl (calculated from the Cockcroft-Gault equation) are based on different parameters and may not yield comparable results. If eCrCl result is absurd, please check patient's height/weight. Estimated Glomerular Filt Rate > 60 Chronic Kidney Disease: Estimated GFR < 60 mL/min/1.73m2 Severe Kidney Disease: Estimated GFR < 15 mL/min/1.73m2 Glucose Random 94 60-115 mg/dL Calcium 8.7 8.4-10.2 mg/dL Bilirubin Total 1.1 0.0-1.0 mg/dL Aspartate Amino Transferase 27 5-37 U/L Alanine Aminotransferase 14 0-40 U/L Total Protein 5.8 6.5-8.0 g/dL Albumin Level 3.5 3.5-5.0 g/dL Alkaline Phosphatase 56 39-117 U/L Phosphorus Reviewed date:01/12/2024 07:43:31 AM Interpretation: Performing Lab:[facility], [address] [place] [phone] Notes/Report: Phosphorus 2.8 2.7-4.5 mg/dL Magnesium Reviewed date:01/12/2024 07:43:31 AM Interpretation: Performing Lab:[facility], [address] [place] [phone] Notes/Report: Magnesium 2.3 1.6-2.6 mg/dL SLIDE REVIEW Reviewed date:01/12/2024 07:43:31 AM Interpretation: Performing Lab:[facility], [address] [place] [phone] Notes/Report: SLIDE REVIEW VERIFIED Venous Blood Gases - POC Reviewed date:01/12/2024 07:43:31 AM Interpretation: Performing Lab:[facility], [address] [place] [phone] Notes/Report: VBG pH 7.41 7.32-7.43 METER #: [id number] additional_comment: Jeovany burgess ctrbb henric VBG pCO2 47 METER #: [id number] additional_comment: Cb aditya ctrbb henric VBG pO2 34 METER #: [id number] additional_comment: Jeovany burgess ctrbb henric VBG Base Excess 5.9 METER #: [id number] additional_comment: Jeovany burgess ctrbb henric VBG HCO3 31 22-26 mmol/L METER #: [id number] additional_comment: Jeovany burgess ctrbb henric VBG O2 % Saturation 56.0 METER #: [id number] additional_comment: Jeovany burgess ctrbb henric Complete Blood Count Auto Di ff Reviewed date:01/12/2024 07:43:31 AM Interpretation: Performing Lab:[facility], [address] [place] [phone] Notes/Report: White Blood Count 10.7 4.8-10.8 X10*3/uL Red Blood Count 2.43 4.60-5.80 X10*6/uL Hemoglobin 7.7 14.0-18.0 g/dl Hematocrit 22.0 42.0-52.0 % Mean Corpuscular Volume 90.5 80.0-98.0 fL Mean Corpuscular Hemoglobin 31.7 27.0-33.0 pg Mean Corpuscular HGB Conc 35.0 31.0-36.0 g/dl Red Cell Distribution Width 15.0 11.0-16.0 % Platelet Count 208 160-400 X10*3/uL Mean Platelet Volume 9.3 9.4-12.4 fL Neutrophils Percent Auto 71.3 45-73 % Imm Gran Pct Auto 0.7 0.0-0.4 % Lymphocytes Percent Auto 11.4 20-40 % Monocytes Percent Auto 15.0 2-11 % Eosinophils Percent Auto 1.1 0-4 % Basophils Percent Auto 0.5 0-2 % NRBC Pct Auto 0.0 0.0-0.2 /100WBC Neutrophils Absolute Auto 7.6 2.0-8.3 x10*3/uL Imm Gran Abs Auto 0.07 0.00-0.03 X10*3/uL Lymphocytes Absolute Auto 1.2 1.2-4.9 X10*3/uL Monocytes Absolute Auto 1.6 0.1-1.2 X10*3/uL Eosinophils Absolute Auto 0.1 0.0-0.4 X10*3/uL Basophils Absolute Auto 0.1 0.0-0.2 X10*3/uL NRBC Abs Auto 0.000 0.0-0.012 X10*3/uL CO RRECTED REPORT Complete Blood Count Auto Di ff Reviewed date:01/13/2024 07:58:52 PM Interpretation: Performing Lab:[facility], [address] [place] [phone] Notes/Report: White Blood Count 11.2 4.8-10.8 X10*3/uL Red Blood Count 2.46 4.60-5.80 X10*6/uL Hemoglobin 7.6 14.0-18.0 g/dl Hematocrit 22.4 42.0-52.0 % Mean Corpuscular Volume 91.1 80.0-98.0 fL Mean Corpuscular Hemoglobin 30.9 27.0-33.0 pg Mean Corpuscular HGB Conc 33.9 31.0-36.0 g/dl Red Cell Distribution Width 15.0 11.0-16.0 % Platelet Count 219 160-400 X10*3/uL Mean Platelet Volume 9.2 9.4-12.4 fL Neutrophils Percent Auto 75.2 45-73 % Imm Gran Pct Auto 0.6 0.0-0.4 % Lymphocytes Percent Auto 9.9 20-40 % Monocytes Percent Auto 12.9 2-11 % Eosinophils Percent Auto 1.0 0-4 % Basophils Percent Auto 0.4 0-2 % NRBC Pct Auto 0.0 0.0-0.2 /100WBC Neutrophils Absolute Auto 8.4 2.0-8.3 x10*3/uL Imm Gran Abs Auto 0.07 0.00-0.03 X10*3/uL Lymphocytes Absolute Auto 1.1 1.2-4.9 X10*3/uL Monocytes Absolute Auto 1.5 0.1-1.2 X10*3/uL Eosinophils Absolute Auto 0.1 0.0-0.4 X10*3/uL Basophils Absolute Auto 0.1 0.0-0.2 X10*3/uL NRBC Abs Auto 0.000 0.0-0.012 X10*3/uL Complete Blood Count no Diff Reviewed date:01/13/2024 07:58:52 PM Interpretation: Performing Lab:[facility], [address] [place] [id number] Notes/Report: White Blood Count 12.6 4.8-10.8 X10*3/uL Red Blood Count 2.56 4.60-5.80 X10*6/uL Hemoglobin 8.0 14.0-18.0 g/dl Hematocrit 23.6 42.0-52.0 % Mean Corpuscular Volume 92.2 80.0-98.0 fL Mean Corpuscular Hemoglobin 31.3 27.0-33.0 pg Mean Corpuscular HGB Conc 33.9 31.0-36.0 g/dl Red Cell Distribution Width 14.7 11.0-16.0 % Platelet Count 187 160-400 X10*3/uL Mean Platelet Volume 9.1 9.4-12.4 fL NRBC Pct Auto 0.0 0.0-0.2 /100WBC NRBC Abs Auto 0.000 0.0-0.012 X10*3/uL Complete Blood Count Auto Di ff Reviewed date:01/13/2024 07:58:52 PM Interpretation: Performing Lab:[address] [id number] Notes/Report: White Blood Count 11.1 4.8-10.8 X10*3/uL Red Blood Count 2.43 4.60-5.80 X10*6/uL Hemoglobin 7.6 14.0-18.0 g/dl Hematocrit 22.1 42.0-52.0 % Mean Corpuscular Volume 90.9 80.0-98.0 fL Mean Corpuscular Hemoglobin 31.3 27.0-33.0 pg Mean Corpuscular HGB Conc 34.4 31.0-36.0 g/dl Red Cell Distribution Width 14.6 11.0-16.0 % Platelet Count 204 160-400 X10*3/uL Mean Platelet Volume 9.1 9.4-12.4 fL Neutrophils Percent Auto 73.3 45-73 % Imm Gran Pct Auto 0.8 0.0-0.4 % Lymphocytes Percent Auto 11.2 20-40 % Monocytes Percent Auto 13.2 2-11 % Eosinophils Percent Auto 1.1 0-4 % Basophils Percent Auto 0.4 0-2 % NRBC Pct Auto 0.0 0.0-0.2 /100WBC Neutrophils Absolute Auto 8.1 2.0-8.3 x10*3/uL Imm Gran Abs Auto 0.09 0.00-0.03 X10*3/uL Lymphocytes Absolute Auto 1.2 1.2-4.9 X10*3/uL Monocytes Absolute Auto 1.5 0.1-1.2 X10*3/uL Eosinophils Absolute Auto 0.1 0.0-0.4 X10*3/uL Basophils Absolute Auto 0.0 0.0-0.2 X10*3/uL NRBC Abs Auto 0.000 0.0-0.012 X10*3/uL Basic Metabolic Panel Reviewed date:01/13/2024 07:58:52 PM Interpretation: Performing Lab:[facility] [address] [phone] Notes/Report: Sodium 137 135-145 mmol/L Potassium 3.8 3.3-5.1 mmol/L Chloride 103 96-108 mmol/L Carbon Dioxide 24 22-29 mmol/L Anion Gap 14 12-20 Blood Urea Nitrogen 19 9-16 mg/dL Creatinine 0.74 0.5-1.4 mg/dL Creatinine Clr Calc Pharmacy 121.6 eGFR (calculated from the MDRD study equation) and eCrCl (calculated from the Cockcroft-Gault equation) are based on different parameters and may not yield comparable results. If eCrCl result is absurd, please check patient's height/weight. Estimated Glomerular Filt Rate > 60 Chronic Kidney Disease: Estimated GFR < 60 mL/min/1.73m2 Severe Kidney Disease: Estimated GFR < 15 mL/min/1.73m2 Glucose Random 90 60-115 mg/dL Calcium 8.8 8.4-10.2 mg/dL Phosphorus Reviewed date:01/13/2024 07:58:52 PM Interpretation: Performing Lab:[facility], [address] [place] [phone] Notes/Report: Phosphorus 3.0 2.7-4.5 mg/dL Magnesium Reviewed date:01/13/2024 07:58:52 PM Interpretation: Performing Lab:[facility], [address] [place] [phone] Notes/Report: Magnesium 2.3 1.6-2.6 mg/dL Albumin Level Reviewed date:01/13/2024 07:58:52 PM Interpretation: Performing Lab:[facility], [address] [place] [phone] Notes/Report: Albumin Level 3.5 3.5-5.0 g/dL SLIDE REVIEW Reviewed date:01/13/2024 07:58:52 PM Interpretation: Performing Lab:[address] [phone] Notes/Report: SLIDE REVIEW VERIFIED Venous Blood Gases - POC Reviewed date:01/13/2024 07:58:52 PM Interpretation: Performing Lab:[facility], [address] [place] [phone] Notes/Report: VBG pH 7.46 7.32-7.43 METER #: [id number] additional_comment: Jeovany schwartz VBG pCO2 37 METER #: [id number] additional_comment: Jeovany schwartz VBG pO2 55 METER #: [id number] additional_comment: Jeovany schwartz VBG Base Excess 3.2 METER #: [id number] additional_comment: Jeovany schwartz VBG HCO3 27 22-26 mmol/L METER #: [id number] additional_comment: Jeovany schwartz VBG O2 % Saturation 87.0 METER #: [id number] additional_comment: Jeovany schwartz Complete Blood Count Auto Di ff Reviewed date:01/13/2024 07:58:52 PM Interpretation: Performing Lab:[facility], [address] [place] [phone] Notes/Report: White Blood Count 12.6 4.8-10.8 X10*3/uL Red Blood Count 2.49 4.60-5.80 X10*6/uL Hemoglobin 8.0 14.0-18.0 g/dl Hematocrit 23.3 42.0-52.0 % Mean Corpuscular Volume 93.6 80.0-98.0 fL Mean Corpuscular Hemoglobin 32.1 27.0-33.0 pg Mean Corpuscular HGB Conc 34.3 31.0-36.0 g/dl Red Cell Distribution Width 14.9 11.0-16.0 % Platelet Count 231 160-400 X10*3/uL Mean Platelet Volume 8.9 9.4-12.4 fL Neutrophils Percent Auto 75.4 45-73 % Imm Gran Pct Auto 0.6 0.0-0.4 % Lymphocytes Percent Auto 6.9 20-40 % Monocytes Percent Auto 15.9 2-11 % Eosinophils Percent Auto 1.0 0-4 % Basophils Percent Auto 0.2 0-2 % NRBC Pct Auto 0.0 0.0-0.2 /100WBC Neutrophils Absolute Auto 9.5 2.0-8.3 x10*3/uL Imm Gran Abs Auto 0.08 0.00-0.03 X10*3/uL Lymphocytes Absolute Auto 0.9 1.2-4.9 X10*3/uL Monocytes Absolute Auto 2.0 0.1-1.2 X10*3/uL Eosinophils Absolute Auto 0.1 0.0-0.4 X10*3/uL Basophils Absolute Auto 0.0 0.0-0.2 X10*3/uL NRBC Abs Auto 0.000 0.0-0.012 X10*3/uL White Blood Count 12.6 4.8-10.8 X10*3/uL Red Blood Count 2.49 4.60-5.80 X10*6/uL Hemoglobin 8.0 14.0-18.0 g/dl Hematocrit 23.3 42.0-52.0 % Mean Corpuscular Volume 93.6 80.0-98.0 fL Mean Corpuscular Hemoglobin 32.1 27.0-33.0 pg Mean Corpuscular HGB Conc 34.3 31.0-36.0 g/dl Red Cell Distribution Width 14.9 11.0-16.0 % Platelet Count 231 160-400 X10*3/uL Mean Platelet Volume 8.9 9.4-12.4 fL Neutrophils Percent Auto 75.4 45-73 % Imm Gran Pct Auto 0.6 0.0-0.4 % Lymphocytes Percent Auto 6.9 20-40 % Monocytes Percent Auto 15.9 2-11 % Eosinophils Percent Auto 1.0 0-4 % Basophils Percent Auto 0.2 0-2 % NRBC Pct Auto 0.0 0.0-0.2 /100WBC Neutrophils Absolute Auto 9.5 2.0-8.3 x10*3/uL Imm Gran Abs Auto 0.08 0.00-0.03 X10*3/uL Lymphocytes Absolute Auto 0.9 1.2-4.9 X10*3/uL Monocytes Absolute Auto 2.0 0.1-1.2 X10*3/uL Eosinophils Absolute Auto 0.1 0.0-0.4 X10*3/uL Basophils Absolute Auto 0.0 0.0-0.2 X10*3/uL NRBC Abs Auto 0.000 0.0-0.012 X10*3/uL CO RRECTED REPORT CO RRECTED REPORT Complete Blood Count Auto Di ff Reviewed date:01/15/2024 06:02:02 AM Interpretation: Performing Lab:[facility], [address] [place] [phone] Notes/Report: White Blood Count 13.1 4.8-10.8 X10*3/uL Red Blood Count 2.56 4.60-5.80 X10*6/uL Hemoglobin 8.0 14.0-18.0 g/dl Hematocrit 23.9 42.0-52.0 % Mean Corpuscular Volume 93.4 80.0-98.0 fL Mean Corpuscular Hemoglobin 31.3 27.0-33.0 pg Mean Corpuscular HGB Conc 33.5 31.0-36.0 g/dl Red Cell Distribution Width 14.9 11.0-16.0 % Platelet Count 249 160-400 X10*3/uL Mean Platelet Volume 9.1 9.4-12.4 fL Neutrophils Percent Auto 75.3 45-73 % Imm Gran Pct Auto 0.5 0.0-0.4 % Lymphocytes Percent Auto 7.4 20-40 % Monocytes Percent Auto 15.7 2-11 % Eosinophils Percent Auto 0.8 0-4 % Basophils Percent Auto 0.3 0-2 % NRBC Pct Auto 0.0 0.0-0.2 /100WBC Neutrophils Absolute Auto 9.8 2.0-8.3 x10*3/uL Imm Gran Abs Auto 0.07 0.00-0.03 X10*3/uL Lymphocytes Absolute Auto 1.0 1.2-4.9 X10*3/uL Monocytes Absolute Auto 2.1 0.1-1.2 X10*3/uL Eosinophils Absolute Auto 0.1 0.0-0.4 X10*3/uL Basophils Absolute Auto 0.0 0.0-0.2 X10*3/uL NRBC Abs Auto 0.000 0.0-0.012 X10*3/uL CO RRECTED REPORT Complete Blood Count Auto Di ff Reviewed date:01/15/2024 06:02:02 AM Interpretation: Performing Lab:[facility], [address] [place] [phone] Notes/Report: White Blood Count 12.1 4.8-10.8 X10*3/uL Red Blood Count 2.52 4.60-5.80 X10*6/uL Hemoglobin 7.8 14.0-18.0 g/dl Hematocrit 23.8 42.0-52.0 % Mean Corpuscular Volume 94.4 80.0-98.0 fL Mean Corpuscular Hemoglobin 31.0 27.0-33.0 pg Mean Corpuscular HGB Conc 32.8 31.0-36.0 g/dl Red Cell Distribution Width 14.6 11.0-16.0 % Platelet Count 267 160-400 X10*3/uL Mean Platelet Volume 9.2 9.4-12.4 fL Neutrophils Percent Auto 75.4 45-73 % Imm Gran Pct Auto 0.8 0.0-0.4 % Lymphocytes Percent Auto 6.7 20-40 % Monocytes Percent Auto 15.7 2-11 % Eosinophils Percent Auto 1.1 0-4 % Basophils Percent Auto 0.3 0-2 % NRBC Pct Auto 0.0 0.0-0.2 /100WBC Neutrophils Absolute Auto 9.2 2.0-8.3 x10*3/uL Imm Gran Abs Auto 0.10 0.00-0.03 X10*3/uL Lymphocytes Absolute Auto 0.8 1.2-4.9 X10*3/uL Monocytes Absolute Auto 1.9 0.1-1.2 X10*3/uL Eosinophils Absolute Auto 0.1 0.0-0.4 X10*3/uL Basophils Absolute Auto 0.0 0.0-0.2 X10*3/uL NRBC Abs Auto 0.000 0.0-0.012 X10*3/uL White Blood Count 12.1 4.8-10.8 X10*3/uL Red Blood Count 2.52 4.60-5.80 X10*6/uL Hemoglobin 7.8 14.0-18.0 g/dl Hematocrit 23.8 42.0-52.0 % Mean Corpuscular Volume 94.4 80.0-98.0 fL Mean Corpuscular Hemoglobin 31.0 27.0-33.0 pg Mean Corpuscular HGB Conc 32.8 31.0-36.0 g/dl Red Cell Distribution Width 14.6 11.0-16.0 % Platelet Count 267 160-400 X10*3/uL Mean Platelet Volume 9.2 9.4-12.4 fL Neutrophils Percent Auto 75.4 45-73 % Imm Gran Pct Auto 0.8 0.0-0.4 % Lymphocytes Percent Auto 6.7 20-40 % Monocytes Percent Auto 15.7 2-11 % Eosinophils Percent Auto 1.1 0-4 % Basophils Percent Auto 0.3 0-2 % NRBC Pct Auto 0.0 0.0-0.2 /100WBC Neutrophils Absolute Auto 9.2 2.0-8.3 x10*3/uL Imm Gran Abs Auto 0.10 0.00-0.03 X10*3/uL Lymphocytes Absolute Auto 0.8 1.2-4.9 X10*3/uL Monocytes Absolute Auto 1.9 0.1-1.2 X10*3/uL Eosinophils Absolute Auto 0.1 0.0-0.4 X10*3/uL Basophils Absolute Auto 0.0 0.0-0.2 X10*3/uL NRBC Abs Auto 0.000 0.0-0.012 X10*3/uL CO RRECTED REPORT CO RRECTED REPORT Hemoglobin and Hematocrit Reviewed date:01/15/2024 06:02:02 AM Interpretation: Performing Lab:[facility], [address] [place] [phone] Notes/Report: Hemoglobin 7.9 14.0-18.0 g/dl Hematocrit 23.5 42.0-52.0 % Basic Metabolic Panel Reviewed date:01/15/2024 06:02:02 AM Interpretation: Performing Lab:[facility], [address] [place] [phone] Notes/Report: Sodium 136 135-145 mmol/L Potassium 3.8 3.3-5.1 mmol/L Chloride 103 96-108 mmol/L Carbon Dioxide 22 22-29 mmol/L Anion Gap 15 12-20 Blood Urea Nitrogen 21 9-16 mg/dL Creatinine 0.91 0.5-1.4 mg/dL Creatinine Clr Calc Pharmacy 97.2 eGFR (calculated from the MDRD study equation) and eCrCl (calculated from the Cockcroft-Gault equation) are based on different parameters and may not yield comparable results. If eCrCl result is absurd, please check patient's height/weight. Estimated Glomerular Filt Rate > 60 Chronic Kidney Disease: Estimated GFR < 60 mL/min/1.73m2 Severe Kidney Disease: Estimated GFR < 15 mL/min/1.73m2 Glucose Random 123 60-115 mg/dL Calcium 9.3 8.4-10.2 mg/dL Phosphorus Reviewed date:01/15/2024 06:02:02 AM Interpretation: Performing Lab:[facility], [address] [place] [phone] Notes/Report: Phosphorus 2.8 2.7-4.5 mg/dL Magnesium Reviewed date:01/15/2024 06:02:02 AM Interpretation: Performing Lab:[facility], [address] [place] [phone] Notes/Report: Magnesium 2.2 1.6-2.6 mg/dL Albumin Level Reviewed date:01/15/2024 06:02:02 AM Interpretation: Performing Lab:[address] [phone] Notes/Report: Albumin Level 3.4 3.5-5.0 g/dL SLIDE REVIEW Reviewed date:01/15/2024 06:02:02 AM Interpretation: Performing Lab:[facility], [address] [place] [phone] Notes/Report: SLIDE REVIEW VERIFIED Complete Blood Count no Diff Reviewed date:01/16/2024 08:51:12 AM Interpretation: Performing Lab:[facility], [address] [place] [phone] Notes/Report: White Blood Count 12.7 4.8-10.8 X10*3/uL Red Blood Count 2.68 4.60-5.80 X10*6/uL Hemoglobin 8.4 14.0-18.0 g/dl Hematocrit 25.0 42.0-52.0 % Mean Corpuscular Volume 93.3 80.0-98.0 fL Mean Corpuscular Hemoglobin 31.3 27.0-33.0 pg Mean Corpuscular HGB Conc 33.6 31.0-36.0 g/dl Red Cell Distribution Width 14.3 11.0-16.0 % Platelet Count 370 160-400 X10*3/uL Mean Platelet Volume 9.2 9.4-12.4 fL NRBC Pct Auto 0.0 0.0-0.2 /100WBC NRBC Abs Auto 0.000 0.0-0.012 X10*3/uL Complete Blood Count no Diff Reviewed date:01/16/2024 08:51:12 AM Interpretation: Performing Lab:[facility], [address] [place] [phone] Notes/Report: White Blood Count 9.9 4.8-10.8 X10*3/uL Red Blood Count 2.66 4.60-5.80 X10*6/uL Hemoglobin 8.2 14.0-18.0 g/dl Hematocrit 24.8 42.0-52.0 % Mean Corpuscular Volume 93.2 80.0-98.0 fL Mean Corpuscular Hemoglobin 30.8 27.0-33.0 pg Mean Corpuscular HGB Conc 33.1 31.0-36.0 g/dl Red Cell Distribution Width 13.8 11.0-16.0 % Platelet Count 365 160-400 X10*3/uL Mean Platelet Volume 8.8 9.4-12.4 fL NRBC Pct Auto 0.0 0.0-0.2 /100WBC NRBC Abs Auto 0.000 0.0-0.012 X10*3/uL Basic Metabolic Panel Reviewed date:01/17/2024 05:05:01 AM Interpretation: Performing Lab:[facility], [address] [place] [phone] Notes/Report: Sodium 135 135-145 mmol/L Potassium 4.2 3.3-5.1 mmol/L Chloride 102 96-108 mmol/L Carbon Dioxide 25 22-29 mmol/L Anion Gap 12 12-20 Blood Urea Nitrogen 21 9-16 mg/dL Creatinine 0.82 0.5-1.4 mg/dL Creatinine Clr Calc Pharmacy 107.9 eGFR (calculated from the MDRD study equation) and eCrCl (calculated from the Cockcroft-Gault equation) are based on different parameters and may not yield comparable results. If eCrCl result is absurd, please check patient's height/weight. Estimated Glomerular Filt Rate > 60 Chronic Kidney Disease: Estimated GFR < 60 mL/min/1.73m2 Severe Kidney Disease: Estimated GFR < 15 mL/min/1.73m2 Glucose Random 140 60-115 mg/dL Calcium 9.4 8.4-10.2 mg/dL Magnesium Reviewed date:01/17/2024 05:05:01 AM Interpretation: Performing Lab:[facility], [address] [place] [phone] Notes/Report: Magnesium 2.3 1.6-2.6 mg/dL Complete Blood Count Auto Di ff Reviewed date:01/18/2024 08:33:04 PM Interpretation: Performing Lab:[facility], [address] [place] [phone] Notes/Report: White Blood Count 12.0 4.8-10.8 X10*3/uL Red Blood Count 3.12 4.60-5.80 X10*6/uL Hemoglobin 9.6 14.0-18.0 g/dl Hematocrit 29.4 42.0-52.0 % Mean Corpuscular Volume 94.2 80.0-98.0 fL Mean Corpuscular Hemoglobin 30.8 27.0-33.0 pg Mean Corpuscular HGB Conc 32.7 31.0-36.0 g/dl Red Cell Distribution Width 14.2 11.0-16.0 % Platelet Count 595 160-400 X10*3/uL Mean Platelet Volume 8.5 9.4-12.4 fL Neutrophils Percent Auto 71.2 45-73 % Imm Gran Pct Auto 1.7 0.0-0.4 % Lymphocytes Percent Auto 10.5 20-40 % Monocytes Percent Auto 13.4 2-11 % Eosinophils Percent Auto 2.5 0-4 % Basophils Percent Auto 0.7 0-2 % NRBC Pct Auto 0.0 0.0-0.2 /100WBC Neutrophils Absolute Auto 8.5 2.0-8.3 x10*3/uL Imm Gran Abs Auto 0.20 0.00-0.03 X10*3/uL Lymphocytes Absolute Auto 1.3 1.2-4.9 X10*3/uL Monocytes Absolute Auto 1.6 0.1-1.2 X10*3/uL Eosinophils Absolute Auto 0.3 0.0-0.4 X10*3/uL Basophils Absolute Auto 0.1 0.0-0.2 X10*3/uL NRBC Abs Auto 0.000 0.0-0.012 X10*3/uL White Blood Count 12.0 4.8-10.8 X10*3/uL Red Blood Count 3.12 4.60-5.80 X10*6/uL Hemoglobin 9.6 14.0-18.0 g/dl Hematocrit 29.4 42.0-52.0 % Mean Corpuscular Volume 94.2 80.0-98.0 fL Mean Corpuscular Hemoglobin 30.8 27.0-33.0 pg Mean Corpuscular HGB Conc 32.7 31.0-36.0 g/dl Red Cell Distribution Width 14.2 11.0-16.0 % Platelet Count 595 160-400 X10*3/uL Mean Platelet Volume 8.5 9.4-12.4 fL Neutrophils Percent Auto 71.2 45-73 % Imm Gran Pct Auto 1.7 0.0-0.4 % Lymphocytes Percent Auto 10.5 20-40 % Monocytes Percent Auto 13.4 2-11 % Eosinophils Percent Auto 2.5 0-4 % Basophils Percent Auto 0.7 0-2 % NRBC Pct Auto 0.0 0.0-0.2 /100WBC Neutrophils Absolute Auto 8.5 2.0-8.3 x10*3/uL Imm Gran Abs Auto 0.20 0.00-0.03 X10*3/uL Lymphocytes Absolute Auto 1.3 1.2-4.9 X10*3/uL Monocytes Absolute Auto 1.6 0.1-1.2 X10*3/uL Eosinophils Absolute Auto 0.3 0.0-0.4 X10*3/uL Basophils Absolute Auto 0.1 0.0-0.2 X10*3/uL NRBC Abs Auto 0.000 0.0-0.012 X10*3/uL CO RRECTED REPORT CO RRECTED REPORT Erythrocyte Sedimentation Ra te Reviewed date:01/18/2024 08:33:04 PM Interpretation: Performing Lab:[address] [phone] Notes/Report: Erythrocyte Sedimentation Rate 92 0-15 MM/HR Patients with polycythemia and many hemoglobin abnormalities may have depressed sed rates whereas patients with anemia may have elevated sed rates. Prothrombin Time INR Reviewed date:01/18/2024 08:33:04 PM Interpretation: Performing Lab:[address] [phone] Notes/Report: Prothrombin Time 13.4 10.9-12.4 SEC INTERNATIONAL NORM RATIO 1.2 0.9-1.1 INTERNATIONAL NORMALIZED RATIO (INR) REFERENCE RANGES [...] mechanical prosthetic heart valves: 2.5 - 3.5 Comprehensive Met. Panel Reviewed date:01/18/2024 08:33:04 PM Interpretation: Performing Lab:[address] [phone] Notes/Report: Sodium 134 135-145 mmol/L Potassium 4.2 3.3-5.1 mmol/L Chloride 102 96-108 mmol/L Carbon Dioxide 23 22-29 mmol/L Anion Gap 13 12-20 Blood Urea Nitrogen 16 9-16 mg/dL Creatinine 0.80 0.5-1.4 mg/dL Creatinine Clr Calc Pharmacy 101.0 eGFR (calculated from the MDRD study equation) and eCrCl (calculated from the Cockcroft-Gault equation) are based on different parameters and may not yield comparable results. If eCrCl result is absurd, please check patient's height/weight. Estimated Glomerular Filt Rate > 60 Chronic Kidney Disease: Estimated GFR < 60 mL/min/1.73m2 Severe Kidney Disease: Estimated GFR < 15 mL/min/1.73m2 Glucose Random 119 60-115 mg/dL Calcium 9.6 8.4-10.2 mg/dL Bilirubin Total 2.4 0.0-1.0 mg/dL Slight Icte dai. Aspartate Amino Transferase 147 5-37 U/L Alanine Aminotransferase 280 0-40 U/L Total Protein 6.7 6.5-8.0 g/dL Albumin Level 3.7 3.5-5.0 g/dL Alkaline Phosphatase 382 39-117 U/L Lactic Acid Reviewed date:01/18/2024 08:33:04 PM Interpretation: Performing Lab:[address] [phone] Notes/Report: Lactic Acid 1.3 0.5-2.0 mmol/L C Reactive Protein Reviewed date:01/18/2024 08:33:04 PM Interpretation: Performing Lab:[facility], [address] [place] [phone] Notes/Report: C Reactive Protein 14.10 < or = 0.50 mg/dL Lipase Reviewed date:01/18/2024 08:33:04 PM Interpretation: Performing Lab:[address] [phone] Notes/Report: Lipase 24 8-78 U/L SLIDE REVIEW Reviewed date:01/18/2024 08:33:04 PM Interpretation: Performing Lab:[address] [place] [address] Notes/Report: SLIDE REVIEW VERIFIED Blood Culture (First) Reviewed date:01/24/2024 07:41:27 AM Interpretation: Performing Lab:[facility], [address] [place] [phone] Notes/Report: Blood Culture (First) No growth after 5 days. Blood Culture (Second) Reviewed date:01/24/2024 07:41:27 AM Interpretation: Performing Lab:[facility], [address] [place] [phone] Notes/Report: Blood Culture (Second) No growth after 5 days. US arterial duplex LE RT Reviewed date:01/21/2024 07:35:28 AM Interpretation: Performing Lab: Notes/Report: [address] [address] Ultrasound Report Signed with Addenda Patient: Zan Encinas MR#: [id number] : 1960 Acct:[id number] Age/Sex: 63 / M ADM Date: 01/18/24 Loc: .ED Attending Dr: Ordering Physician: Yuriy Dunbar Date of Service: 01/18/24 Procedure(s): US arterial duplex LE RT Accession Number(s): [id number] cc: Quinton Callahan MD; Yuriy Dunbar ADDENDUM ADDENDUM #1 Findings were communicated by telephone with Dr. Gerard by Dr. Zarate at 2034 hours. Electronically signed by: Placido Zarate MD 01/18/2024 08:41 PM [facility] Addendum Dictated By: Yuriy Zarate MD Addendum Signed By: <Electronically signed by Yuriy Zarate MD in OV> 01/18/242040 Addendum Cosigned By: DD/ TD/TT: 01/18/24 EXAMINATION: US NONINVASIVE ASSESSMENT OF THE RIGHT LOWER EXTREMITY WITH ARTERIAL DUPLEX-Limited CLINICAL INFORMATION: Pain, recent bypass, evaluate bypass patency COMPARISON: 01/01/2024 and images from angiography 01/07/2024 TECHNIQUE: Limited sonographic evaluation with duplex Doppler, waveform analysis and measurement of velocities in the along the right lower extremity bypass graft was performed. FINDINGS: NONINVASIVE ASSESSMENT OF THE ARTERIES OF BILATERAL LOWER EXTREMITIES WITH ABIs: There is a bypass graft extending from the right common femoral artery to the anterior tibial artery. The graft is occluded along its length. There is no demonstrable color or spectral Doppler signal. 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 Electronically signed by: Placido Zarate MD 01/18/2024 08:33 PM EST RP Dictated By: Yuriy Zarate MD Signed By: <Electronically signed by Yuriy Zarate MD in OV> 01/18/242032 DD/ 02 TD/TT: 01/18/241505 Clerical Grader: [place] [id number] Ultrasound Report Signed with Addenda Patient: Zan Encinas MR#: [id number] : 1960 Acct:[id number] Age/Sex: 63 / M ADM Date: 01/18/24 Loc: .ED Attending Dr: Ordering Physician: Yuriy Dunbar Date of Service: 01/18/24 Procedure(s): US arterial duplex LE RT Accession Number(s): [id number] cc: Quinton Callahan MD; Yuriy Dunbar ADDENDUM ADDENDUM #1 Findings were communicated by telephone with Dr. Gerard by Dr. Zarate at 4 hours. Electronically ivania d by: Placido Zarate MD 01/18/2024 08:41 PM EST RP Addendum Dictated By : Yuriy Zarate MD Addendum Signed By: <Electronically signed by Yuriy Zarate MD in OV> 01/18/242040 Addendum Cosigned By: DD/ TD/TT: 01/18/24 EXAMINATION: US NONINVASIVE ASSESSMENT OF THE RIGHT LOWER EXTREMITY WITH ARTERIAL DUPLEX-Limited CLINICAL INFORMATION: Pain, recent bypass, evaluate bypass patency COMPARISON: 01/01/2024 and images from angiography 01/07/2024 TECHNIQUE: Limited sonographic evaluation with duplex Doppler, waveform analysis and measurement of velocities in the along the right lower extremity bypass graft was performed. FINDINGS: NONINVASIVE ASSESSME NT OF THE ARTERIES OF BILATERAL LOWER EXTREMITIES WITH ABIs: There is a bypass gr aft extending from the right common femoral artery to the anterior tibi al artery. The graft is occluded along its length. There is no demonstr able color or spectral Doppler signal. 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 Electronically ivania d by: Placido Zarate MD 01/18/2024 08:33 PM [facility] Dictated By: Yuriy Zarate MD Signed By: <Electronically signed by Yuriy Zarate MD in OV> 01/18/242032 DD/ 1503 TD/TT: 01/18/24 1506 Clerical Grader: BLANCA XR foot RT min 3V Reviewed date:01/18/2024 08:33:04 PM Interpretation: Performing Lab: Notes/Report: [address] [address] XRay Report Signed Patient: Zan Encinas MR#: [id number] : 1960 Acct:[id number] Age/Sex: 63 / M ADM Date: 01/18/24 Loc: HO.ED Attending Dr: Ordering Physician: Yuriy Dunbar Date of Service: 01/18/24 Procedure(s): XR foot RT min 3V Accession Number(s): [id number] cc: Quinton Callahan MD; Yuriy Dunbar EXAMINATION: XR FOOT, RIGHT CLINICAL INFORMATION: pain COMPARISON: None available. TECHNIQUE: AP, lateral, and oblique views of the right foot. 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 Questionable erosion at the medial aspect of the base of the 1st proximal phalanx. No acute fracture or malalignment. Degenerative calcification at the distal Achilles insertion. XR/XR foot RT min 3V IMPRESSION: Mild degenerative changes as described. Questionable erosion at the medial aspect of the base of the 1st proximal phalanx. If clinical concern of osteomyelitis, MRI would be recommended. Electronically signed by: Kaushal Cohen MD 01/18/2024 04:19 PM EST RP Dictated By: Kaushal Cohen MD Signed By: <Electronically signed by Kaushal Cohen MD in OV> 01/18/24 1619 DD/ 1516 TD/TT: 01/18/24 1534 Clerical Grader: MICHELA [place] [address] XRay Report Signed Patient: Zan Encinas MR#: [id number] : 1960 Acct:[id number] Age/Sex: 63 / M ADM Date: 01/18/24 Loc: HO.ED Attending Dr: Ordering Physician: Yuriy Dunbar Date of Service: 01/18/24 Procedure(s): XR chito t RT min 3V Accession Number(s): [id number] cc: Quinton Callahan MD; Yuriy Dunbar EXAMINATION: XR FOOT, RIGHT CLINICAL INFORMATION: pain COMPARISON: None available. TECHNIQUE: AP, lateral, and obl ique views of the right foot. 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 Questionable erosion at the medial aspect of the base of the 1st proximal phalanx. No acute fracture or malalignment. Degenerative calcification at the distal Achilles insertion. X R/XR foot RT min 3V IMPRESSION: Mild degenerative changes as described. Questionable erosion at the medial aspect of the base of the 1st proximal phalanx. If clinical concern of osteomyelitis, MRI would be recommended. Electronically ivania d by: Kaushla Cohen MD 01/18/2024 04:19 PM EST RP Dictated By: Kaushal Cohen MD Signed By: <Electronically signed by Kaushal Cohen MD in OV> 01/18/24 1619 DD/ 1516 TD/TT: 01/18/24 1534 Clerical Grader: MICHELA Complete Blood Count no Diff Reviewed date:02/04/2024 11:35:53 AM Interpretation: Performing Lab:[address] [id number] Notes/Report: White Blood Count 11.5 4.8-10.8 X10*3/uL Red Blood Count 4.05 4.60-5.80 X10*6/uL Hemoglobin 12.0 14.0-18.0 g/dl Hematocrit 38.0 42.0-52.0 % Mean Corpuscular Volume 93.8 80.0-98.0 fL Mean Corpuscular Hemoglobin 29.6 27.0-33.0 pg Mean Corpuscular HGB Conc 31.6 31.0-36.0 g/dl Red Cell Distribution Width 14.0 11.0-16.0 % Platelet Count 386 160-400 X10*3/uL Mean Platelet Volume 9.0 9.4-12.4 fL NRBC Pct Auto 0.0 0.0-0.2 /100WBC NRBC Abs Auto 0.000 0.0-0.012 X10*3/uL Prothrombin Time INR Reviewed date:02/04/2024 11:35:53 AM Interpretation: Performing Lab:[address] [id number] Notes/Report: Prothrombin Time 13.0 10.9-12.4 SEC INTERNATIONAL NORM RATIO 1.1 0.9-1.1 INTERNATIONAL NORMALIZED RATIO (INR) REFERENCE RANGES [...] 2.5 - 3.5 Partial Thromboplastin Time Reviewed date:02/04/2024 11:35:53 AM Interpretation: Performing Lab:[address] [id number] Notes/Report: Partial Thromboplastin Time 33.9 26.0-36.8 SEC For information regarding the monitoring of direct thrombin inhibitors, please refer to Pharmacy. Basic Metabolic Panel Reviewed date:02/04/2024 11:35:53 AM Interpretation: Performing Lab:[facility], [address] [place] [id number] Notes/Report: Sodium 138 135-145 mmol/L Potassium 4.4 3.3-5.1 mmol/L Chloride 105 96-108 mmol/L Carbon Dioxide 26 22-29 mmol/L Anion Gap 11 12-20 Blood Urea Nitrogen 19 9-16 mg/dL Creatinine 1.13 0.5-1.4 mg/dL Creatinine Clr Calc Pharmacy 71.5 eGFR (calculated from the MDRD study equation) and eCrCl (calculated from the Cockcroft-Gault equation) are based on different parameters and may not yield comparable results. If eCrCl result is absurd, please check patient's height/weight. Estimated Glomerular Filt Rate > 60 Chronic Kidney Disease: Estimated GFR < 60 mL/min/1.73m2 Severe Kidney Disease: Estimated GFR < 15 mL/min/1.73m2 Glucose Random 106 60-115 mg/dL Calcium 9.7 8.4-10.2 mg/dL Pathology Reviewed date:02/08/2024 08:35:16 AM Interpretation: Performing Lab:[facility], [address] [place] [phone] Notes/Report: ---- Name: Toney Encinas Age/Sex: 63/M : 1960 Unit#: [id number] Attend Dr: Bimal Knott MD Re02/04/24 Status : ADM IN Location: [facility] 364-1 Disch: ---- SPEC : [id number] RECD : 02/04/24 STATUS: YUSUF MATHUR NUM: [id number] FRANTZ: 02/04/[address] [facility] [address]: Bimal Knott MD ENTERED: 02/04/24 16 SP TYPE: Surgical OTHR DR: Quinton Callahan MD ORDERED: Gross Micro L5 Diagnosis Leg, right (below-kn ee amputation): -Gangrenous necrosis of the hallux, involving skin and soft tissue. -Bone with focally necrotic marrow, but no acute osteomyelitis seen. -Bone, skin and soft tissue margins appear viable macroscopically. -Atherosclerosis wit h luminal narrowing and organizing clot, involving the posterior tibial vessels (malik re with focal osseous metaplasia) and anterior tibial vessels. Clinical History PVD Microscopic Description Microscopic sections reviewed. Material Received Right leg Gross Description Received fresh label ed ?right leg? is a right adabr-dpt-buny amputation specimen which measures 34.0 cm in length from the skin margin of resection to the volar aspect of the heel with approximately 1 0.0 cm of exposed tibia and fibula at the margin of resection. There is moderate edema of th e lower leg, however, the skin, subcutaneous tissue, muscle and bone at the margin of resect ion appear viable. The proximal hallux is remarkable for a 2.5 cm pale peripherally erythematous arnold ulcer. Sectioning reveals edematous and necrotic, fibrotic dermal and subcutane ous tissues. The subjacent distal phalangeal bone is dense, arnold-yellow and arnold-pink. A vasc ular dissection is performed which reveals focal calcific atherosclerosis and occlusion of the posterior tibial artery with small caliber vessels. The marrow at the ma rgin of resection is fatty, estrada-yellow. No other erosions or ulcers are identified. Blood Bank Laboratory Technologist sections are submitted labeled as follows: A1 and A2 sections f rom the proximal hallux; A3 distal phalangeal bone from the hallux, following decalcification; A4 anterior tibial vessels; A5 posterior tibial vessels; A6 a sample of marjuan w from the margin of resection. Cassettes A3 A4 and A5 are submitted following decalcification. CEDS CONTINUED ON NEXT PAGE ---- Name: Toney Encinas joanie Cuevas Age/Sex: 63/M : 1960 Unit#: [id number] Attend Dr: Bimal Knott MD Re02/04/24 Status : ADM IN Location: [facility] 364-1 Disch: ---- SPEC : [id number] RECD : 02/04/24 STATUS: YUSUF MATHUR NUM: [id number] FRANTZ: 02/04/24-[address] [facility] [address]: Bimal Knott MD ENTERED: 02/04/24- 16 SP TYPE: Surgical OTHR DR: Quinton Callahan MD ORDERED: Gross Micro L5 Copies To: Quinton Callahan MD [address] [facility], [address] [place] [id number] Bimal Knott MD [facility] Vascular Services [address] [facility] [address] [place] [address] ---- Signed (signature on file) Val Cris 02/06/24 1550 ---- END OF REPORT Type and Screen Reviewed date:02/04/2024 11:35:53 AM Interpretation: Performing Lab:[facility], [address] [place] [phone] Notes/Report: Blood Type OP Antibody Screen NEGATIVE Complete Blood Count no Diff Reviewed date:02/08/2024 08:35:16 AM Interpretation: Performing Lab:[facility], [address] [place] [phone] Notes/Report: White Blood Count 9.4 4.8-10.8 X10*3/uL Red Blood Count 3.19 4.60-5.80 X10*6/uL Hemoglobin 9.7 14.0-18.0 g/dl Hematocrit 29.6 42.0-52.0 % Mean Corpuscular Volume 92.8 80.0-98.0 fL Mean Corpuscular Hemoglobin 30.4 27.0-33.0 pg Mean Corpuscular HGB Conc 32.8 31.0-36.0 g/dl Red Cell Distribution Width 13.8 11.0-16.0 % Platelet Count 283 160-400 X10*3/uL Mean Platelet Volume 9.6 9.4-12.4 fL NRBC Pct Auto 0.0 0.0-0.2 /100WBC NRBC Abs Auto 0.000 0.0-0.012 X10*3/uL Complete Blood Count Auto Di ff Reviewed date:02/08/2024 08:35:16 AM Interpretation: Performing Lab:[facility], [address] [place] [phone] Notes/Report: White Blood Count 11.2 4.8-10.8 X10*3/uL Red Blood Count 3.39 4.60-5.80 X10*6/uL Hemoglobin 10.0 14.0-18.0 g/dl Hematocrit 30.8 42.0-52.0 % Mean Corpuscular Volume 90.9 80.0-98.0 fL Mean Corpuscular Hemoglobin 29.5 27.0-33.0 pg Mean Corpuscular HGB Conc 32.5 31.0-36.0 g/dl Red Cell Distribution Width 13.8 11.0-16.0 % Platelet Count 281 160-400 X10*3/uL Mean Platelet Volume 9.1 9.4-12.4 fL Neutrophils Percent Auto 75.6 45-73 % Imm Gran Pct Auto 0.6 0.0-0.4 % Lymphocytes Percent Auto 9.5 20-40 % Monocytes Percent Auto 13.8 2-11 % Eosinophils Percent Auto 0.2 0-4 % Basophils Percent Auto 0.3 0-2 % NRBC Pct Auto 0.0 0.0-0.2 /100WBC Neutrophils Absolute Auto 8.5 2.0-8.3 x10*3/uL Imm Gran Abs Auto 0.07 0.00-0.03 X10*3/uL Lymphocytes Absolute Auto 1.1 1.2-4.9 X10*3/uL Monocytes Absolute Auto 1.5 0.1-1.2 X10*3/uL Eosinophils Absolute Auto 0.0 0.0-0.4 X10*3/uL Basophils Absolute Auto 0.0 0.0-0.2 X10*3/uL NRBC Abs Auto 0.000 0.0-0.012 X10*3/uL White Blood Count 11.2 4.8-10.8 X10*3/uL Red Blood Count 3.39 4.60-5.80 X10*6/uL Hemoglobin 10.0 14.0-18.0 g/dl Hematocrit 30.8 42.0-52.0 % Mean Corpuscular Volume 90.9 80.0-98.0 fL Mean Corpuscular Hemoglobin 29.5 27.0-33.0 pg Mean Corpuscular HGB Conc 32.5 31.0-36.0 g/dl Red Cell Distribution Width 13.8 11.0-16.0 % Platelet Count 281 160-400 X10*3/uL Mean Platelet Volume 9.1 9.4-12.4 fL Neutrophils Percent Auto 75.6 45-73 % Imm Gran Pct Auto 0.6 0.0-0.4 % Lymphocytes Percent Auto 9.5 20-40 % Monocytes Percent Auto 13.8 2-11 % Eosinophils Percent Auto 0.2 0-4 % Basophils Percent Auto 0.3 0-2 % NRBC Pct Auto 0.0 0.0-0.2 /100WBC Neutrophils Absolute Auto 8.5 2.0-8.3 x10*3/uL Imm Gran Abs Auto 0.07 0.00-0.03 X10*3/uL Lymphocytes Absolute Auto 1.1 1.2-4.9 X10*3/uL Monocytes Absolute Auto 1.5 0.1-1.2 X10*3/uL Eosinophils Absolute Auto 0.0 0.0-0.4 X10*3/uL Basophils Absolute Auto 0.0 0.0-0.2 X10*3/uL NRBC Abs Auto 0.000 0.0-0.012 X10*3/uL CO RRECTED REPORT CO RRECTED REPORT Basic Metabolic Panel Reviewed date:02/08/2024 08:35:16 AM Interpretation: Performing Lab:[facility], [address] [place] [phone] Notes/Report: Sodium 137 135-145 mmol/L Potassium 3.9 3.3-5.1 mmol/L Chloride 103 96-108 mmol/L Carbon Dioxide 26 22-29 mmol/L Anion Gap 12 12-20 Blood Urea Nitrogen 11 9-16 mg/dL Creatinine 0.82 0.5-1.4 mg/dL Creatinine Clr Calc Pharmacy 98.5 eGFR (calculated from the MDRD study equation) and eCrCl (calculated from the Cockcroft-Gault equation) are based on different parameters and may not yield comparable results. If eCrCl result is absurd, please check patient's height/weight. Estimated Glomerular Filt Rate > 60 Chronic Kidney Disease: Estimated GFR < 60 mL/min/1.73m2 Severe Kidney Disease: Estimated GFR < 15 mL/min/1.73m2 Glucose Random 116 60-115 mg/dL Calcium 9.1 8.4-10.2 mg/dL SLIDE REVIEW Reviewed date:02/08/2024 08:35:16 AM Interpretation: Performing Lab:[address] [phone] Notes/Report: SLIDE REVIEW VERIFIED Complete Blood Count no Diff Reviewed date:02/08/2024 08:35:16 AM Interpretation: Performing Lab:[address] [phone] Notes/Report: White Blood Count 9.3 4.8-10.8 X10*3/uL Red Blood Count 3.31 4.60-5.80 X10*6/uL Hemoglobin 9.6 14.0-18.0 g/dl Hematocrit 30.4 42.0-52.0 % Mean Corpuscular Volume 91.8 80.0-98.0 fL Mean Corpuscular Hemoglobin 29.0 27.0-33.0 pg Mean Corpuscular HGB Conc 31.6 31.0-36.0 g/dl Red Cell Distribution Width 13.6 11.0-16.0 % Platelet Count 309 160-400 X10*3/uL Mean Platelet Volume 9.7 9.4-12.4 fL NRBC Pct Auto 0.0 0.0-0.2 /100WBC NRBC Abs Auto 0.000 0.0-0.012 X10*3/uL Basic Metabolic Panel Reviewed date:02/08/2024 08:35:16 AM Interpretation: Performing Lab:[address] [phone] Notes/Report: Sodium 136 135-145 mmol/L Potassium 3.8 3.3-5.1 mmol/L Chloride 103 96-108 mmol/L Carbon Dioxide 24 22-29 mmol/L Anion Gap 13 12-20 Blood Urea Nitrogen 10 9-16 mg/dL Creatinine 0.76 0.5-1.4 mg/dL Creatinine Clr Calc Pharmacy 106.3 eGFR (calculated from the MDRD study equation) and eCrCl (calculated from the Cockcroft-Gault equation) are based on different parameters and may not yield comparable results. If eCrCl result is absurd, please check patient's height/weight. Estimated Glomerular Filt Rate > 60 Chronic Kidney Disease: Estimated GFR < 60 mL/min/1.73m2 Severe Kidney Disease: Estimated GFR < 15 mL/min/1.73m2 Glucose Random 98 60-115 mg/dL Calcium 8.9 8.4-10.2 mg/dL Albumin Level Reviewed date:02/08/2024 08:35:16 AM Interpretation: Performing Lab:[address] [phone] Notes/Report: Albumin Level 2.7 3.5-5.0 g/dL Complete Blood Count no Diff Reviewed date:02/08/2024 08:35:16 AM Interpretation: Performing Lab:[address] [phone] Notes/Report: White Blood Count 9.0 4.8-10.8 X10*3/uL Red Blood Count 3.45 4.60-5.80 X10*6/uL Hemoglobin 10.1 14.0-18.0 g/dl Hematocrit 31.4 42.0-52.0 % Mean Corpuscular Volume 91.0 80.0-98.0 fL Mean Corpuscular Hemoglobin 29.3 27.0-33.0 pg Mean Corpuscular HGB Conc 32.2 31.0-36.0 g/dl Red Cell Distribution Width 13.5 11.0-16.0 % Platelet Count 352 160-400 X10*3/uL Mean Platelet Volume 9.3 9.4-12.4 fL NRBC Pct Auto 0.0 0.0-0.2 /100WBC NRBC Abs Auto 0.000 0.0-0.012 X10*3/uL Hold Green Gel Reviewed date:02/08/2024 08:35:16 AM Interpretation: Performing Lab:[address] [phone] Notes/Report: Hold Green Gel See Note Specimen held untested for 24 hours; Call to request Chemistry testing. Reason For Referral No Information Medications Medication [...] F BY MOUTH ONCE DAILY Inhalation Active Metoprolol Succinate ER 25 MG 1 tablet Orally Once a day for 30 days Active ibuprofen 1 tab Oral Active Tamsulosin HCl 0.4 MG Take 2 capsules by mouth once daily Active ASA 1 tab Oral Active Tylenol 325 MG 1 tablet as needed O rally every 4 hrs Active Gabapentin 400 MG 1 capsule Orally fou r times a day 10/31/2023 Active Atorvastatin Calcium 10 MG Take 1 tablet by mouth once daily Active Nystatin 364909 UNIT/GM 1 application Ex ternally Twice a day 12/21/2023 Active Eliquis 5 MG 1 Tablet Orally twic e a day Active Social History Tobacco Use: Social History Observation Description Date Details (start date - stop date) Current Smoker NA - NA Sex Assigned At : Social History Observation Description Sex Assigned At Male Tobacco Use/Smoking Question Answer Notes Patient is a current smoker How often do you smoke cigarettes? every day How many cigarettes a day do you smoke? 6-10 Additional Findings: Tobacco User Light cigarett e smoker ((1-9 cigs/day) Additional Findings: Tobacco Non-User Ex -moderate cigarette smoker (10-19/day) Alcohol Screen Question Answer Notes Did you have a drink contain ing alcohol in the past year? Yes How often did you have a dri nk containing alcohol in the past year? Monthly or less (1 point) How many drinks did you have on a typical day when you were drinking in the past year? 1 or 2 drinks (0 point) How often did you have 6 or more drinks on one occasion in the past year? Never (0 point) Points 1 Interpretation Negative Problems Problem Type SNOMED Code ICD Code Onset Dates Problem Status W/U Status Risk Notes Problem 910451036 Overweight (E66.3) Active confirmed His body mass index is 29. We discussed diet and nutrition. I recommended aggressive weight loss and sodium restriction. Problem [id number] Mixed hyperlipidemia (E78.2) Active confirmed A comprehensive laboratory database with a fasting lipid profile will be obtained. He was continued on his currrent meddications. Problem 67239423 Chronic obstructive pulmonary disease, unspecified COPD type (J44.9) Active confirmed He has resumed smoking 5 cigarettes per day. He was counseled about this and made aware of the smoking cessation programs in the area. Problem 92729177 Tobacco dependence (F17.200) Active confirmed I have counseled him about smoking cessation and offered to refer him to smoking cessation programs in the community. He said he would consider this and try to cut down. Problem Left bundle branch block (42407057) Left bundle branch block (I44.7) Active confirmed The director of sleep's interpretation of the perfusion test was that the defect in the septum may be due to the bundle branch block. I will discuss this with cardiology. Problem 82573115 Hiatal hernia (K44.9) Active confirmed The symptoms of his esophageal reflux and hiatal hernia well controlled with current medications. No change in his regimen as needed. Problem 505695064 Peripheral arterial disease (I73.9) Active confirmed He states clearly that his claudication is much improved in the right legg. The surgical wound is healing well. He recently had bypass surgery. He reports the leg turns white and cold if he elevates it. He was instructed to bring this to the attention the vascular surgeon at the next visit in a few days and to keep the leg down interarterial position. Problem Hoarseness (43047832) Hoarseness (R49.0) Active confirmed He will be referred to ENT for indirect laryngoscopy. Problem 3827059 Umbilical hernia without obstruction and without gangrene (K42.9) Active confirmed This is asymptomatic and requires no treatment at this time. Problem 810545178 Benign prostatic hyperplasia with lower urinary tract symptoms (N40.1) Active confirmed The tamsulosin was continued today. He will notify me if his symptoms worsen. He has had no retention. He has symptoms of prostatism. Problem 310418718 Acute right-sided low back pain with right-sided sciatica (M54.41) Active confirmed His back pain continues and I have increased the gabapentin. Problem 821172092 Palmer's esophagus determined by endoscopy (K22.70) Active confirmed He is due for an endoscopy and was referred back to his gastroenterolog ist, Dr. Quinton Campos. 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 Problem 38771216986126159 Carpal tunnel syndrome on both sides (G56.03) Active confirmed He has a history of carpal tunnel syndrome treated by Dr. Raphael. He is currently asymptomatic. Vital Signs Heart Rate 54 /min 12/28/2023 Temperature 97.9 degrees Fahrenheit 12/28/2023 Blood pressure diastolic 60 mm Hg 12/28/2023 Height 73 in 12/28/2023 Blood pressure systolic 97 mm Hg 12/28/2023 Weight 197 lbs 12/28/2023 BMI 25.99 kg/m2 12/28/2023 Encounters Encounter Location Date Provider Diagnosis Quinton Callahan III, MD [address] [place] [address] [place] [phone] 06/13/2023 Quinton Callahan Peripheral arterial disease I73.9 ; Tobacco dependence F17.200 ; Overweight E66.3 ; Umbilical hernia without obstruction and without gangrene K42.9 ; Acute right-sided low back pain with right-sided sciatica M54.41 ; Chronic obstructive pulmonary disease, unspecified COPD type J44.9 and Palmer's esophagus determined by endoscopy K22.70 Quinton Callahan III, MD [address] [place] [address] [place] [phone] 07/09/2023 Quinton Callahan Peripheral arterial disease I73.9 ; Benign prostatic hyperplasia with lower urinary tract symptoms N40.1 ; Palmer's esophagus determined by endoscopy K22.70 ; Chronic obstructive pulmonary disease, unspecified COPD type J44.9 ; Hiatal hernia K44.9 ; Tobacco dependence F17.200 and Overweight E66.3 Quinton Callahan III, MD [address] [place] [address] [place] [phone] 07/24/2023 Quinton Callahan Peripheral arterial disease I73.9 ; Hiatal hernia K44.9 ; Splenic vein thrombosis I82.890 ; Palmer's esophagus determined by endoscopy K22.70 ; Benign prostatic hyperplasia with lower urinary tract symptoms N40.1 ; Tobacco dependence F17.200 ; Hoarseness R49.0 and Left bundle branch block I44.7 Quinton Callahan III, MD [address] [place] [address] [place] [phone] 08/08/2023 Quinton Callahan Peripheral arterial disease I73.9 ; Benign prostatic hyperplasia with lower urinary tract symptoms N40.1 ; Palmer's esophagus determined by endoscopy K22.70 ; Chronic obstructive pulmonary disease, unspecified COPD type J44.9 ; Tobacco dependence F17.200 and Overweight E66.3 Quinton Callahan III, MD [address] [place] [address] [place] [address] 08/27/2023 Quinton Callahan Peripheral arterial disease I73.9 ; Benign prostatic hyperplasia with lower urinary tract symptoms N40.1 ; Palmer's esophagus determined by endoscopy K22.70 ; Chronic obstructive pulmonary disease, unspecified COPD type J44.9 ; Overweight E66.3 ; Tobacco dependence F17.200 and Mixed hyperlipidemia E78.2 Quinton Callahan III, MD [address] [place] [address] [place] [address] 09/19/2023 Quinton Callahan Peripheral arterial disease I73.9 ; Open wound T14.8XXA ; Benign prostatic hyperplasia with lower urinary tract symptoms N40.1 ; Palmer's esophagus determined by endoscopy K22.70 ; Chronic obstructive pulmonary disease, unspecified COPD type J44.9 ; Tobacco dependence F17.200 and Mixed hyperlipidemia E78.2 Quinton Callahan III, MD [address] [place] [address] [place] [phone] 09/24/2023 Quinton Callahan Peripheral arterial disease I73.9 ; Edema of right lower extremity R60.0 ; Palmer's esophagus determined by endoscopy K22.70 ; Benign prostatic hyperplasia with lower urinary tract symptoms N40.1 ; Overweight E66.3 and Tobacco dependence F17.200 Quinton Clalahan III, MD [address] [place] [address] [place] [phone] 10/15/2023 Quinton Callahan Peripheral arterial disease I73.9 ; Palmer's esophagus determined by endoscopy K22.70 ; Chronic obstructive pulmonary disease, unspecified COPD type J44.9 ; Tobacco dependence F17.200 and Mixed hyperlipidemia E78.2 Quinton Callahan III, MD [address] [place] [address] [place] [address] 10/31/2023 Quinton Callahan Peripheral arterial disease I73.9 ; Benign prostatic hyperplasia with lower urinary tract symptoms N40.1 ; Palmer's esophagus determined by endoscopy K22.70 ; Chronic obstructive pulmonary disease, unspecified COPD type J44.9 ; Tobacco dependence F17.200 ; Mixed hyperlipidemia E78.2 ; Acute right-sided low back pain with right-sided sciatica M54.41 and Overweight E66.3 Quinton Callahan III, MD [address] [place] [address] [place] [address] 12/28/2023 Quinton Callahan Peripheral arterial disease I73.9 ; Chronic obstructive pulmonary disease, unspecified COPD type J44.9 ; Benign prostatic hyperplasia with lower urinary tract symptoms N40.1 ; Palmer's esophagus determined by endoscopy K22.70 ; Hiatal hernia K44.9 ; Overweight E66.3 ; Tobacco dependence F17.200 and Mixed hyperlipidemia E78.2 Quinton Callahan III, MD [address] [place] [address] [place] [address] 07/24/2023 Quinton Callahan III, MD [address] [place] [address] [place] [address] 08/02/2023 Quinton Callahan III, MD [address] [place] [address] [place] [address] 08/09/2023 Quinton Callahan III, MD [address] [place] [address] [place] [address] 08/16/2023 Quinton Callahan III, MD [address] [place] [address] [place] [address] 08/20/2023 Quinton Callahan III, MD [address] [place] [address] [place] [address] 11/27/2023 Quinton Callahan III, MD [address] [place] [address] [place] [address] 12/18/2023 Quinton Callahan III, MD [address] [place] [address] [place] [address] 12/21/2023 Quinton Callahan III, MD [address] [place] [address] [place] [address] 12/21/2023 Quinton Callahan III, MD [address] [place] [address] [place] [address] 02/12/2024 Quinton Callahan III, MD [address] [place] [address] [address] [place] [address] 03/04/2024 Quinton Callahan III, MD [address] [place] [address] [address] [place], [place] [address] 05/02/2024 Quinton Callahan III, MD [address] [place] [address] [address] [place] [address] 05/02/2024 Quinton Callahan Peripheral arterial disease I73.9 Assessments Encounter Date Diagnosis (ICD Code) Assessment Notes Treat ment Notes Treatment Clinical Notes 06/13/2023 Tobacco dependence (ICD-10 - F17.200) I [...] and pink but swollen with edema extending jail up the right leg which is also red. 09/24/2023 Edema of right lower extremity (ICD-10 - R60.0) He is coming back to see the vascular surgeon in the near future. He'll continue on the antibiotic for now. 10/15/2023 Peripheral arterial disease (ICD-10 - I73.9) He continues to have significant dependent rubor in the right leg but the infection is resolving. The surgical wound is healing well 10/15/2023 Palmer's esophagus determined by endoscopy (ICD-10 - K22.70) He is due for an endoscopy and was referred back to his care transitions nurse, Dr. Quinton Campos. 10/31/2023 Peripheral arterial disease (ICD-10 - I73.9) He continues to have significant dependent rubor in the right leg but the infection is resolving. The surgical wound is healing well. He recently had bypass surgery. He reports the leg turns white and cold if he elevates it. He was instructed to bring this to the attention the vascular surgeon at the next visit in a few days and to keep the leg down interarterial position. 10/31/2023 Benign prostatic hyperplasia with lower urinary tract symptoms (ICD-10 - N40.1) The tamsulosin was continued today. He will notify me if his symptoms worsen. He has had no retention. He has symptoms of prostatism. 12/28/2023 Chronic obstructive pulmonary disease, unspecified COPD type (ICD-10 - J44.9) He has resumed smoking 5 cigarettes per day. He was counseled about this and made aware of the smoking cessation programs in the area. 12/28/2023 Peripheral arterial disease (ICD-10 - I73.9) He states clearly that his claudication is much improved in the right legg. The surgical wound is healing well. He recently had bypass surgery. He reports the leg turns white and cold if he elevates it. He was instructed to bring this to the attention the vascular surgeon at the next visit in a few days and to keep the leg down interarterial position. 05/02/2024 Peripheral arterial disease (ICD-10 - I73.9) 06/13/2023 Overweight (ICD-10 - E66.3) His body mass index is 29. We discussed diet and nutrition. I recommended aggressive weight loss and sodium restriction. 07/09/2023 Palmer's esophagus determined by endoscopy (ICD-10 - K22.70) He is due for an endoscopy and was referred back to his care transitions nurse, Dr. Quinton Campos. 07/24/2023 Splenic vein thrombosis (ICD-10 - I82.890) There have been no further signs of thromboembolism. 08/08/2023 Palmer's esophagus determined by endoscopy (ICD-10 - K22.70) He is due for an endoscopy and was referred back to his care transitions nurse, Dr. Quinton Campos. 08/27/2023 Palmer's esophagus determined by endoscopy (ICD-10 - K22.70) He is due for an endoscopy and was referred back to his care transitions nurse, Dr. Quinton Campos. 09/19/2023 Benign prostatic hyperplasia with lower urinary tract symptoms (ICD-10 - N40.1) The tamsulosin was continued today. He will notify me if his symptoms worsen. He has had no retention. He has symptoms of prostatism. 09/24/2023 Palmer's esophagus determined by endoscopy (ICD-10 - K22.70) He is due for an endoscopy and was referred back to his care transitions nurse, Dr. Quinton Campos. 10/15/2023 Chronic obstructive pulmonary disease, unspecified COPD type (ICD-10 - J44.9) He has resumed smoking 5 cigarettes per day. He was counseled about this and made aware of the smoking cessation programs in the area. 10/31/2023 Palmer's esophagus determined by endoscopy (ICD-10 - K22.70) He is due for an endoscopy and was referred back to his care transitions nurse, Dr. Quinton Campos. 12/28/2023 Benign prostatic hyperplasia with lower urinary tract symptoms (ICD-10 - N40.1) The tamsulosin was continued today. He will notify me if his symptoms worsen. He has had no retention. He has symptoms of prostatism. 06/13/2023 Umbilical hernia without obstruction and without [...] and strongly encouraged him to attend. 07/24/2023 Palmer's esophagus determined by endoscopy (ICD-10 - K22.70) He is due for an endoscopy and was referred back to his care transitions nurse, Dr. Quinton Campos. 08/08/2023 Chronic obstructive pulmonary [...] smoking cessation programs in the area. 09/19/2023 Palmer's esophagus determined by endoscopy (ICD-10 - K22.70) He is due for an endoscopy and was referred back to his care transitions nurse, Dr. Quinton Campos. 09/24/2023 Benign prostatic hyperplasia with lower urinary tract symptoms (ICD-10 - N40.1) The tamsulosin was continued today. He will notify me if his symptoms worsen. He has had no retention. He has symptoms of prostatism. 10/15/2023 Tobacco dependence (ICD-10 - F17.200) I have counseled him about smoking cessation and offered to refer him to smoking cessation programs in the community. He said he would consider this and try to cut down. 10/31/2023 Chronic obstructive pulmonary disease, unspecified COPD type (ICD-10 - J44.9) He has resumed smoking 5 cigarettes per day. He was counseled about this and made aware of the smoking cessation programs in the area. 12/28/2023 Palemr's esophagus determined by endoscopy (ICD-10 - K22.70) He is due for an endoscopy and was referred back to his care transitions nurse, Dr. Quinton Campos. 06/13/2023 Acute right-sided low back pain with [...] this and try to cut down. 08/27/2023 Overweight (ICD-10 - E66.3) His body [...] recommended aggressive weight loss and sodium restriction. 10/15/2023 Mixed hyperlipidemia (ICD-10 - E78.2) A comprehensive laboratory database with a fasting lipid profile will be obtained. He was continued on his currrent meddications. 10/31/2023 Tobacco dependence (ICD-10 - F17.200) I have counseled him about smoking cessation and offered to refer him to smoking cessation programs in the community. He said he would consider this and try to cut down. 12/28/2023 Hiatal hernia (ICD-10 - K44.9) The symptoms of his esophageal reflux and hiatal hernia well controlled with current medications. No change in his regimen as needed. 06/13/2023 Chronic obstructive pulmonary disease, unspecified COPD [...] consider this and try to cut down. 10/31/2023 Mixed hyperlipidemia (ICD-10 - E78.2) A comprehensive laboratory database with a fasting lipid profile will be obtained. He was continued on his currrent meddications. 12/28/2023 Overweight (ICD-10 - E66.3) His body mass index is 29. We discussed diet and nutrition. I recommended aggressive weight loss and sodium restriction. 06/13/2023 Palmer's esophagus determined by endoscopy (ICD-10 - K22.70) He is due for an endoscopy and was referred back to his care transitions nurse, Dr. Quinton Campos. 07/09/2023 Overweight (ICD-10 - E66.3) His body mass index is 29. We discussed diet and nutrition. I recommended aggressive weight loss and sodium restriction. 07/24/2023 Hoarseness (ICD-10 - R49.0) He will be referred to ENT for indirect laryngoscopy. 08/27/2023 Mixed hyperlipidemia (ICD-10 - E78.2) A comprehensive laboratory database with a fasting lipid profile will be obtained. He was continued on his currrent meddications. 09/19/2023 Mixed hyperlipidemia (ICD-10 - E78.2) A comprehensive laboratory database with a fasting lipid profile will be obtained. He was continued on his currrent meddications. 10/31/2023 Acute right-sided low back pain with right-sided sciatica (ICD-10 - M54.41) His back pain continues and I have increased the gabapentin. 12/28/2023 Tobacco dependence (ICD-10 - F17.200) I have counseled him about smoking cessation and offered to refer him to smoking cessation programs in the community. He said he would consider this and try to cut down. 07/24/2023 Left bundle branch block (ICD-10 - I44.7) The director of sleep's interpretation of the perfusion test was that the defect in the septum may be due to the bundle branch block. I will discuss this with cardiology. 10/31/2023 Overweight (ICD-10 - E66.3) His body mass index is 29. We discussed diet and nutrition. I recommended aggressive weight loss and sodium restriction. 12/28/2023 Mixed hyperlipidemia (ICD-10 - E78.2) A comprehensive laboratory database with a fasting lipid profile will be obtained. He was continued on his currrent meddications. Plan Of Treatment Pending Test Test Name Order Date PROFILE, [...] PCR 09/29/2019 Next Appt Details Provider Name:Quinton London, 10/15/2024 11:00:00 AM, [address] [facility] [address], [address], [place], [address], Insurance Providers Payer Name Payer Address Payer Phone Subscriber Number Group Number Insured Name Patient Relationship to Insured Coverage Start Date Coverage End Date [employer] [address] [place] [phone] [id number] Zan Olivo Self - patient is the insured 4 MEDICARE NGS [address] [place] [phone] [id number] Zan Olivo Self - patient is the insured Medical (General) History Medical History History ICD Code Barretts esophagus without dysplasia K22 .70 clot in splenic veins COPD (chronic obstructive pulmonary dise ase) J44.9 benign prostatic hypertrophy tobacco dependence GERD thrombus splenic vein 2000 history of cardiac irregularity umbilical hernia hiatal hernia low back pain history of carpal tunnel syndrome overweight right calf claudication Surgical History Surgery Date(Month/Year) arteriogram right lower extremity 05/2019 upper endoscopy, [facility], Dr. Quinton Campos, Palmer's esophagus 2014 upper endoscopy and colonosc opy, [facility], Dr. 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
--- OUTSIDE RECORDS SUMMARY | 2024-05-06 16:31 | XMS_ITS | Encounter Summary ---
Author Organization [facility] Address [address] [place] [address] [place] [address] Phone Care Team Providers Care Proof Carrier Name Role Phone Quinton Callahan MD Primary Care Provider [phone]- [phone] Encounter Details Date Type Department Care Team (Late st Contact Info) Description 11/28/2023 Procedure [facility] [address] [place] [address] Social History Tobacco Use Types Packs/Day Years [...] on filedocumented in this encounter Care Teams Proof Carrier Relationship Specialty Start Date End Date Quinton Callahan MD [address] [place] [id number] PCP - General Medical Oncology 11/23/23 documented as of this encounter Additional Source Comments The information contained in this document represents components of the legal health record. It is not the complete legal health record.[facility]
--- OUTSIDE RECORDS SUMMARY | 2024-05-06 16:31 | XMS_ITS | Encounter Summary ---
Author Organization [facility] Address [address] [place] [address] [place] [address] Phone Care Team Providers Care Partner Marketing Manager Name Role Phone Quinton Callahan MD Primary Care Provider [phone]- [phone] Encounter Details Date Type Department Care Team (Late st Contact Info) Description 11/28/2023 Procedure [facility] [address] [place] [address] Social History Tobacco Use Types Packs/Day Years [...] on filedocumented in this encounter Care Teams Partner Marketing Manager Relationship Specialty Start Date End Date Quinton Callahan MD [address] [place] [phone] PCP - General Medical Oncology 11/23/23 documented as of this encounter Additional Source Comments The information contained in this document represents components of the legal health record. It is not the complete legal health record.[facility]
== END 2024-05-06 14:16 | disposition home or self-care (01) ==
PROVIDERS: PCP Internal Medicine Medical Oncology; Visit Provider Physician Assistant Surgical
DX: S88.111D Complete traumatic amputation at level between knee and ankle, right lower leg, subsequent encounter (principal)
CPT/HCPCS: 99024

== ENCOUNTER 2024-05-20 12:58 | Outpatient (AMB) | payer MEDICARE, SELFPAY ==
--- NOTE | 2024-05-20 13:04 | MHC.OFFVIS ---
Intake Visit Reasons: 2 week follow up R BKA Intake Note: 2 week follow up Right BKA, pt states that has increased pain s/p decrease gabapentin dosage, pt states throbbing and nerve pain, similar to the pain before surgery. Also [facility] had called on Sunday w/ concern on change in drainage and color of amp. Also concern of irritation from adhesive. Lithograph Press Operator Required: No Accompanied by: Self / Same As Patient Allergies No Known Allergies Allergy (Verified 05/20/24 13:11) HPI HPI 2 week follow up R BKA: Details: Zan is presenting today to follow up to right BKA. He endorses increased drainage from the middle wound, worsening over the last week. [facility] reached out to us on Sunday to discuss this increased drainage and we had him follow up today. He continues with [facility] services twice a week. The patient states he is changing the dressings at least every day. He states his pain is increased as well, more like a nerve type pain. [facility] Medical History Krish angina Left bundle branch block Bakers cyst Nicotine dependence, cigarettes, uncomplicated Arthritis BPH (benign prostatic hyperplasia) Elevated cholesterol Complex regional pain syndrome i of right lower limb S/P angiogram of extremity (07/18/23) Atrial fibrillation History of Palmer's esophagus Splenic vein thrombosis History of femoral angiogram GERD (gastroesophageal reflux disease) COPD (chronic obstructive pulmonary disease) Peripheral arterial disease Surgical History History of tonsillectomy Hx of oral surgery Hx of tracheostomy History of esophagogastroduodenoscopy (EGD) H/O colonoscopy Social History Household Members: Family Household Members Other:: Son, son girlfriend, grandbaby Housing: Apartment Housing Other:: 3 stairs to climb Are you a primary career development consultant to a significant other at home: No Do you presently have visiting nurse or other home services: Yes Comment: Dr Knott made aware of absent pulse and sensation in right foot Patient Tobacco Use Status: Former Tobacco user Tobacco use type: Cigarette Cigarette Packs Per Day: 0.5 Cigarettes Per Day: 10 Years Smoked: 50 e-Cigarette/Vaping Use: Former Use Second Hand Smoke Exposure: No Substance Use Type: Marijuana service: No Review of Systems ENT Reports Normal hearing present Neuro Reports Normal hearing present and Denies Sensory deficit (Neuro) Physical Exam Const General: healthy appearing and no acute distress Orientation/consciousness: patient oriented x3 HEENT Head: Yes normal to inspection Ears: hearing grossly normal bilaterally Mouth: Normal oral and palatal mucosa present Resp Effort & Inspection: normal respiratory effort and able to speak in complete sentences Auscultation: clear to auscultation bilaterally Cardio Jugular venous distension: no JVD Rate: regular rate Rhythm: regular rhythm Heart sounds: S1 normal heart sound present and S2 normal heart sound present Bruits: no abdominal aortic bruits, no carotid bruits, no femoral bruits and no renal bruits Peripheral pulses: Peripheral pulses 2+ throughout GI Inspection: Yes normal to inspection Palpation (GI): No Abdominal aortic bruit present Skin General skin exam: no rashes or lesions noted Wounds: no wounds Hair: normal Neuro General: patient oriented x3 Cranial nerves: Yes CN's II-XII intact bilaterally and Yes Normal hearing present Cognition (Neuro): normal cognition Gait exam (Neuro): Normal gait present Motor exam (neuro): 5/5 motor strength present throughout Sensory Exam: No Sensory deficit (Neuro) Extrem Other: Right BKA site: Medial wound closed and scabbing over. Mid-incision - measuring 0.5cmx0.5cm, unchanged from 05/06. Increased serous drainage noted. Able to probe to the bone, appx 1cm down. No bleeding noted. Slight erythema noted around the area but not warm or painful to palpation. General: Yes normal to inspection, Yes full ROM, Yes capillary refill normal and Yes normal gait Assessment & Plan Assessment & Plan (1) Below-knee amputation of right lower extremity: Code(s): S88.111A - Complete traumatic amputation at level between knee and ankle, right lower leg, initial encounter Category: Medical Qualifiers: Encounter type: subsequent encounter Qualified Code(s): S88.111D - Complete traumatic amputation at level between knee and ankle, right lower leg, subsequent encounter Plan: Zan is presenting today for a 2w follow up, s/p right BKA on 02/04/24. He states he has had increased drainage from the middle open area, particularly in the last week. He has been changing the dressings daily. He states he has had increased pain as well. We are able to probe to the bone. There is sanguineous drainage noted. There is slight erythema surrounding the site, but no warmth, pain, or swelling. We have ordered a stat MRI to r/o osteo. I discussed with the pt to continue with daily dressing changes of Alginate, 4x4, Allevyn dressing, and tubigrip/les wrap. I discussed with him that if there is significant increased drainage, redness, pain, or fever/chills, to reach out to us right away. We will have him follow up in 2w, unless he needs to be seen sooner, pending the MRI results. If there are any questions or concerns, please do not hesitate to reach to us. Orders: Orders MR femur RT w con Today S88.111D - Complete traumatic amputation at level between knee and ankle, right lower leg, subsequent encounter Coding Level of Care Code Est Pt Level 4 (14845) Diagnoses Below-knee amputation of right lower extremity, subsequent encounter S88.111D Encounter type: subsequent encounter
== END 2024-05-20 13:39 | disposition home or self-care (01) ==
LOC: HO.HVS 12:59
PROVIDERS: PCP Internal Medicine Medical Oncology; Visit Provider Physician Assistant Surgical
DX: Z09 Encounter for follow-up examination after completed treatment for conditions other than malignant neoplasm (principal)
CPT/HCPCS: 99024

== ENCOUNTER → 2024-05-20 12:58 | Outpatient (BNVA) | payer MEDICARE, SELFPAY | PROVIDERS: PCP Internal Medicine Medical Oncology; Visit Provider Physician Assistant Surgical | DX: Z47.81 Encounter for orthopedic aftercare following surgical amputation (principal); Z89.511 Acquired absence of right leg below knee | CPT/HCPCS: 99212 ==

== ENCOUNTER 2024-05-26 14:43 | Inpatient (IN) | payer MEDICARE, SELFPAY ==
--- NOTE | ~2024-05-26 | MR_ITS ---
EXAMINATION: MR KNEE WITHOUT AND WITH CONTRAST, RIGHT CLINICAL INFORMATION: BKA, redness, discharge, rule out osteomyelitis. COMPARISON: No prior MRI. Correlation made with plain films right knee/leg 05/26/2024. TECHNIQUE: MRI of the right knee/leg was performed before and after the intravenous administration of 8.5 mL Gadavist on a high-field 1.5 Dior Siemens scanner. FINDINGS: There has been a below the knee amputation. There has been muscle flap fold over repair of the distal osteotomy. There is patchy bone marrow edema, low T1 signal, and enhancement extending from the edge of the osteotomy site approximately 2.8 cm caudally. Findings are consistent with osteomyelitis of the distal bony stump. There is a thin tract of enhancement and edema/fluid extending from the osteotomy site to the most anterior aspect of the stump, measuring approximately 4.3 cm in AP, by 4.4 cm in transverse, by 1.0 cm in craniocaudad dimension. This is consistent with soft tissue infection, likely self decompressing. There are susceptibility foci in the soft tissues abutting the distal osteotomy site, consistent with surgical clips. Examination not tailored for evaluation of meniscal and ligamentous structures although grossly the cruciate ligament, medial and lateral meniscus, MCL, LCL, and iliotibial band appear intact. There is no additional soft tissue evidence of abscess or drainable collection. There is diffuse subcutaneous edema present. MR/MR knee RT wo/w con IMPRESSION: 1. Findings consistent with osteomyelitis of the distal osseous stump, with bony signal changes/enhancement involving the entire distal osteotomy site and extending approximately 2.8 cm cephalad. 2. There is a tract of enhancement and edema/fluid extending from the distal bony osteotomy site, into the ventral soft tissues at the margin of the flap repair, likely a self decompressing soft tissue infection. 3. No additional drainable abscess or fluid collection. 4. Diffuse subcutaneous edema. Electronically signed by: Alvarado Cortes MD 05/27/2024 04:26 PM EDT
--- NOTE | ~2024-05-26 | XR_ITS ---
EXAMINATION: XR KNEE, RIGHT CLINICAL INFORMATION: Right stump erythema/pus discharge COMPARISON: 10/01/2023. TECHNIQUE: Four views of the right knee. FINDINGS: There is mild generalized osteopenia. There has been a [id number] amputation. There are no permeative changes involving the osteotomy sites. There is soft tissue swelling and induration of the stump. There are surgical clips in the distal and medial soft tissues. There is a stent in the distal SFA. No joint effusion. Normal alignment of the knee joint. Preserved joint spaces. No fracture or dislocation. XR/XR knee RT 4V IMPRESSION: 1. Below the knee amputation without radiographic changes of osteomyelitis evident. 2. Osteopenia. 3. Stent in the SFA. 4. Soft edema of the distal stump. Electronically signed by: Alvarado Cortes MD 05/26/2024 03:32 PM EDT
--- NOTE | 2024-05-26 14:54 | ED_ITS ---
HPI - General Adult General Chief complaint: Wound/Laceration Stated complaint: R Leg Infection Time Seen by Provider: 05/26/24 20:01 Source: patient Mode of arrival: ambulatory Limitations: no limitations History of Present Illness ED Provider: Dr. Aleksandra Yepez HPI narrative: Patient comes to the emergency room complaining of about a week of gradually worsening pain in the right stump. Patient had a BKA done on January of 2024. Patient states that over last few days he has noted that he has been draining pus, very tender to touch. Denies fever chills. Patient states that he was seen less than a week ago by vascular surgery, they were trying to get him to get an MRI as soon as possible to rule out osteomyelitis. Patient states that he is very scared that this may be osteomyelitis, as he has been trying to get a prosthetic leg as soon as possible Related Data Home Medications ?Medication ?Instructions ?Recorded ?Confirmed aspirin 81 mg tablet,delayed 81 mg PO DAILY 01/12/20 05/26/24 release (Luis Low Dose Aspirin) pantoprazole 40 mg tablet,delayed 80 mg PO DAILY@0630 01/12/20 05/26/24 release tamsulosin 0.4 mg capsule 0.8 mg PO DAILY 01/12/20 05/26/24 atorvastatin 10 mg tablet 10 mg PO DAILY 05/04/20 05/26/24 krwijopt-eb-yawhi 300 mcg-K 60 1 tab PO DAILY 10/02/23 05/26/24 mcg-lycop 600 mcg-lutein 300 mcg tablet (Centrum Silver Men) metoprolol succinate 25 mg 25 mg PO DAILY 12/17/23 05/26/24 tablet,extended release 24 hr albuterol sulfate 90 mcg/actuation 2 puff inhalation Q4H PRN 01/07/24 05/26/24 aerosol inhaler shortness of breath or wheezing umeclidinium 62.5 mcg/actuation 1 inh inhalation DAILY 01/07/24 05/26/24 blister powder for inhalation (Incruse Ellipta) fluticasone 500 mcg-salmeterol 50 1 inh inhalation BID 05/26/24 05/26/24 mcg/dose blistr powdr for inhalation (Wixela Inhub) gabapentin 300 mg capsule 300 mg PO TID@1000,1700,2100 05/26/24 05/26/24 ibuprofen 200 mg tablet 600 mg PO TID@1000,1700,2100 05/26/24 05/26/24 Previous Rx's ?Medication ?Instructions ?Recorded ipratropium 0.5 mg-albuterol 3 mg 3 ml inhalation BID PRN wheezing 01/01/24 (2.5 mg base)/3 mL nebulization #180 mL soln Allergies Allergy/AdvReac Type Severity Reaction Status Date / Time No Known Allergies Allergy Verified 05/26/24 14:59 Review of Systems 2 Review of Systems: Constitutional : No Weight loss, No Fever, No Chills, No Night Sweats, No Fatigue, No Malaise ENT/Mouth : No Hearing loss, No Ear Pain, No Nasal Congestion, No Sinus Pain, No Hoarseness, No sore throat, No Rhinorrhea, No Swallowing Difficulty Eyes: No Eye Pain, No Swelling, No Redness, No Foreign Body, No Discharge, No Vision Changes Cardiovascular : No Chest Pain, No SOB, No Dyspnea on Exertion, No Orthopnea, No Edema, No Palpitations Respiratory : No Cough, No Sputum, No Wheezing, No Smoke Exposure, No Dyspnea Gastrointestinal : No Nausea, No Vomiting, No Diarrhea, No Constipation, No abdominal Pain, No Hematochezia, No Melena Genitourinary : no irregular bleeding, No Dysuria, No Urinary Frequency, No Hematuria, No Urinary Incontinence, No Urgency, No Flank Pain, No Urinary Flow Changes, No Hesitancy Musculoskeletal : No joint pain, No Myalgias, No Joint Swelling Skin : complaining of stump pus drainage, erythema and pain Neuro : No Weakness, No Numbness, No Paresthesias, No Loss of Consciousness, No Dizziness, No Headache Psych : No Anxiety/Panic, No Depression, No SI/HI/AH/VH, No Social Issues, Heme/Lymph: No Bruising, No Bleeding,No Lymphadenopathy Endocrine : No Polyuria, No Polydipsia, No Temperature Intolerance [facility] Past Medical History Medical History Krish angina Left bundle branch block Bakers cyst Nicotine dependence, cigarettes, uncomplicated Arthritis BPH (benign prostatic hyperplasia) Elevated cholesterol Complex regional pain syndrome i of right lower limb S/P angiogram of extremity (07/18/23) Atrial fibrillation History of Palmer's esophagus Splenic vein thrombosis History of femoral angiogram GERD (gastroesophageal reflux disease) COPD (chronic obstructive pulmonary disease) Peripheral arterial disease Surgical History History of tonsillectomy Hx of oral surgery Hx of tracheostomy History of esophagogastroduodenoscopy (EGD) H/O colonoscopy Social History Social History Household Members: Family Household Members Other:: Son, son girlfriend, grandbaby Housing: Apartment Housing Other:: 3 stairs to climb Are you a primary palliative care specialist to a significant other at home: No Do you presently have visiting nurse or other home services: Yes Comment: Dr Knott made aware of absent pulse and sensation in right foot Patient Tobacco Use Status: Former Tobacco user Tobacco use type: Cigarette Cigarette Packs Per Day: 0.5 Cigarettes Per Day: 10 Years Smoked: 50 Smoked in Last 30 Days: Yes e-Cigarette/Vaping Use: Former Use Second Hand Smoke Exposure: No Use of substances other than those prescribed or required for medical reasons: Yes Substance Use Type: Marijuana Substance Use Frequency: Chronic Longstanding Advance Directives: No Advance Directives Information Provided: No Nutrition Risks: No Nutritional Risk service: No Physical Exam ED Vital Signs: Vital Signs - 24 hr 05/26/24 14:56 05/26/24 19:57 05/26/24 20:19 Temperature 98.3 F 98.4 F 98.4 F Pulse Rate 62 65 65 Respiratory Rate 18 16 16 Blood Pressure 132/101 H 124/75 124/75 Pulse Oximetry 97 98 98 Oxygen Delivery Method Room Air Room Air Room Air 05/26/24 21:48 Temperature 99.4 F Pulse Rate 52 Respiratory Rate 16 Blood Pressure 132/69 Pulse Oximetry 95 Oxygen Delivery Method Room Air BMI result Body Mass Index 25.1 Const Other: Appearance: Alert. Oriented X3. No acute distress. Eyes: Pupils equal, round and reactive to light. ENT: Pharynx normal. Neck: Normal inspection. Neck supple. No lymph nodes noted. No crepitus CVS: Normal heart rate and rhythm. Pulses normal. Normal S1 and S2 Respiratory: No respiratory distress. Breath sounds normal. No Wheezing. No rales Abdomen: Soft and nontender. No rigidity. No distention. Skin: Skin warm and dry. Normal skin color. Normal skin turgor. the stump is a bit erythematous, there is a scant amount of pus drainage, very tender to touch Extremities: No lower extremity edema. No Lacerations. No Rash, sees skin above Neuro: Oriented X 3. No motor deficit. No sensory deficit. Moving all extremities. No slurred speech. CN 2 through 12 grossly intact Psych: calm, cooperative, normal affect Course Course Course Narrative: RME: 64 yold male with pmh of Right BKA Stump redness with pus discharge for 2 weeks. patient sent by PCP for work up. labs and xray ordered. Medications Administered Generic Name Dose Route Start Last Admin Trade Name Freq PRN Reason Stop Dose Admin Enoxaparin Sodium 40 mg 05/26/24 22:00 05/26/24 22:41 Enoxaparin Sodium 40 Mg/0.4 Ml Syringe SUBCUT 40 mg Q24H JOSETTE Administration Gabapentin 300 mg 05/26/24 22:10 05/26/24 22:33 Gabapentin 300 Mg Capsule PO 300 mg TID@1000,1700,2100 JOSETTE Administration Discontinued Medications Generic Name Dose Route Start Last Admin Trade Name Freq PRN Reason Stop Dose Admin Vancomycin HCl 2,000 mg in 500 mls @ 250 mls/hr 05/26/24 20:55 05/26/24 22:11 Vancomycin/Ns IV 05/26/24 22:54 250 mls/hr ONCE ONE Administration Piperacillin Sod/Tazobactam 50 mls @ 100 mls/hr 05/26/24 20:55 05/26/24 22:01 Sod 3.375 gm/ Sodium Chloride IV 05/26/24 21:24 Infused ONCE ONE Infusion Medical Decision Making Medical Decision Making [place] Narrative: my interpretation of labs: Patient's white blood cell count slightly elevated, 10.9. Lactic acid within normal limits. X-rays do not show any suspicious for osteomyelitis. However, it can not be ruled out. We ordered an MRI. However it can not be done today. Patient is on the schedule for tomorrow. Patient was started on vancomycin and Zosyn, discussed with our hospitalist Dr. Menendez, patient accepted to the medicine service Differential Diagnosis Differential Diagnoses: The differential diagnosis associated with the presentation includes ( cellulitis, osteomyelitis, abscess) Admission/Observation Consideration of admission/observation: Escalation of care including admission/observation considered Consult Healthcare Provider Management of the patient was discussed with: Hospitalist Lab Data MDM Lab Attestation statement: I reviewed the patient's lab results. 05/26/24 15:18 05/26/24 15:18 Labs: Lab Results 05/26/24 05/26/24 Range/Units 15:18 17:08 WBC 10.9 H (4.8-10.8) X10*3/uL RBC 5.43 D (4.60-5.80) X10*6/uL Hgb 16.0 D (14.0-18.0) g/dl Hct 48.4 D (42.0-52.0) % MCV 89.1 (80.0-98.0) fL MCH 29.5 (27.0-33.0) pg MCHC 33.1 (31.0-36.0) g/dl RDW 14.1 (11.0-16.0) % Plt Count 327 (160-400) X10*3/uL MPV 10.0 (9.4-12.4) fL Immature Gran % (Auto) 0.4 (0.0-0.4) % Neut % (Auto) 70.5 (45-73) % Lymph % (Auto) 16.8 L (20-40) % [place] % (Auto) 9.1 (2-11) % Eos % (Auto) 2.6 (0-4) % Baso % (Auto) 0.6 (0-2) % Lymph # (Auto) 1.8 (1.2-4.9) X10*3/uL [place] # (Auto) 1.0 (0.1-1.2) X10*3/uL Eos # (Auto) 0.3 (0.0-0.4) X10*3/uL Baso # (Auto) 0.1 (0.0-0.2) X10*3/uL Abs Immat Gran (auto) 0.04 H (0.00-0.03) X10*3/uL Absolute Neuts (auto) 7.7 (2.0-8.3) x10*3/uL Absolute Nucleated RBC 0.000 (0.0-0.012) X10*3/uL Nucleated RBC % (auto) 0.0 (0.0-0.2) /100WBC ESR 10 (0-15) MM/HR Sodium 138 (135-145) mmol/L Potassium 4.3 (3.3-5.1) mmol/L Chloride 107 (96-108) mmol/L Carbon Dioxide 21 L (22-29) mmol/L Anion Gap 14 (12-20) BUN 16 (9-16) mg/dL Creatinine 0.80 (0.5-1.4) mg/dL Estim Creat Clear Calc 99.6 Estimated GFR > 60 Random Glucose 94 (60-115) mg/dL Lactic Acid 1.4 (0.5-2.0) mmol/L Calcium 9.1 (8.4-10.2) mg/dL Total Bilirubin 0.4 (0.0-1.0) mg/dL AST 23 (5-37) U/L ALT 13 (0-40) U/L Alkaline Phosphatase 92 (39-117) U/L C-Reactive Protein 1.01 H (< or = 0.50) mg/dL Total Protein 6.5 (6.5-8.0) g/dL Albumin 3.6 (3.5-5.0) g/dL Independent Interpretation I performed an independent interpretation of an: Plain X-Ray Radiology Impression Discussion of test interpretation with radiology: I have reviewed the radiologist's reading. Radiologist Impression: There is mild generalized osteopenia. There has been a bgadn-ivo-mmft amputation. There are no permeative changes involving the osteotomy sites. There is soft tissue swelling and induration of the stump. There are surgical clips in the distal and medial soft tissues. There is a stent in the distal SFA. No joint effusion. Normal alignment of the knee joint. Preserved joint spaces. No fracture or dislocation. XR/XR knee RT 4V IMPRESSION: 1. Below the knee amputation without radiographic changes of osteomyelitis evident. 2. Osteopenia. 3. Stent in the SFA. 4. Soft edema of the distal stump. Critical Care Time Critical Care Time Critical Care Time: Yes Total Critical Care Time: 45 Attestation: I have personally provided critical care time. Time includes review of lab data, radiology results, discussion with consultants, and monitoring for potential decompensation. Intervention performed as documented. Discharge Plan Discharge Clinical Impression: Cellulitis Patient Disposition: Admitted As Inpatient
[2024-05-26 14:56] VITALS: BP 132/101; PULSE 62; RESP 18; TEMP 36.8; O2SAT 97; BMI 25.1
[2024-05-26 15:23] LABS: MANUAL DIFF FLAG NO
[2024-05-26 15:47] LABS: Lactic Acid 1.4 mmol/L (0.5-2.0)
[2024-05-26 16:04] LABS: Alanine Aminotransferase 13 U/L (0-40); Albumin Level 3.6 g/dL (3.5-5.0); Anion Gap 14 (12-20); Aspartate Amino Transferase 23 U/L (5-37); Bilirubin Total 0.4 mg/dL (0.0-1.0); Blood Urea Nitrogen 16 mg/dL (9-16); C Reactive Protein 1.01 mg/dL (< or = 0.50); Calcium 9.1 mg/dL (8.4-10.2); Carbon Dioxide 21 mmol/L (22-29); Chloride 107 mmol/L (96-108); Creatinine Clr Calc Pharmacy 99.6; Estimated Glomerular Filt Rate > 60; Glucose Random 94 mg/dL (60-115); Potassium 4.3 mmol/L (3.3-5.1); Sodium 138 mmol/L (135-145); Total Protein 6.5 g/dL (6.5-8.0)
[2024-05-26 16:09] LABS: Alkaline Phosphatase 92 U/L (39-117)
[2024-05-26 16:11] LABS: Basophils Absolute Auto 0.1 X10*3/uL (0.0-0.2); Basophils Percent Auto 0.6 % (0-2); Eosinophils Absolute Auto 0.3 X10*3/uL (0.0-0.4); Eosinophils Percent Auto 2.6 % (0-4); Hematocrit 48.4 % (42.0-52.0); Imm Gran Abs Auto 0.04 X10*3/uL (0.00-0.03); Imm Gran Pct Auto 0.4 % (0.0-0.4); Lymphocytes Absolute Auto 1.8 X10*3/uL (1.2-4.9); Lymphocytes Percent Auto 16.8 % (20-40); Mean Corpuscular HGB Conc 33.1 g/dl (31.0-36.0); Mean Corpuscular Hemoglobin 29.5 pg (27.0-33.0); Mean Corpuscular Volume 89.1 fL (80.0-98.0); Monocytes Percent Auto 9.1 % (2-11); Neutrophils Absolute Auto 7.7 x10*3/uL (2.0-8.3); Neutrophils Percent Auto 70.5 % (45-73); Platelet Count 327 X10*3/uL (160-400); Red Blood Count 5.43 X10*6/uL (4.60-5.80); Red Cell Distribution Width 14.1 % (11.0-16.0); White Blood Count 10.9 X10*3/uL (4.8-10.8)
[2024-05-26 17:52] LABS: Erythrocyte Sedimentation Rate 10 MM/HR (0-15)
[2024-05-26 19:57] VITALS: BP 124/75; PULSE 65; RESP 16; TEMP 36.9; O2SAT 98
--- OUTSIDE RECORDS SUMMARY | 2024-05-26 19:57 | XMS_ITS | Clinical Summary ---
Author Organization [facility] Address [address] [place] [address] Phone Care Team Providers Care Vending Machine Operator Name Role Phone Quinton Callahan MD Primary Care Provider +1- [phone] Allergies No known active allergies Medications Medication [...] Date Ischemia of right lower extremity 11/27/2023 Immunizations Name Administration Dates Next Due Influenza [...] this topic Medical Devices Implanted Type Area Hot Saw Helper Device Identifier Shelf Expiration Date Model / Serial / Lot Graft Vascular 6.0mmx60 70cm Propaten Heparin Carmeda Bioactive Surface Thin Wall Removable Ring Stretch - [id number] Implanted:Qty: 1 on 12/02/2023 by Percy Segundo MD at [facility] STANDARD Right: Vein [employer] [id number] 08/13/2026 [id number] / [id number] / Metal Clip Celd Left Groin 10/2023 Stent Right Femoral Artery Patch Pericardium 2cm 9cm Decellularized Bovine [employer] - [id number] Implanted:Qty: 1 on 12/02/2023 by Percy Segundo MD at [facility] Right: Vein [employer] [id number] 03/24/2025 [id number] / / [id number] Procedures Procedure Name Priority Date/Time Associated Diagnosis Comments BASIC METABOLIC PANEL Routine 02/18/2024 8:01 AM EST Aftercare for amputation stump LIPID PANEL Routine 11/28/2023 1:21 AM EDT from Last 3 Months or Most Recently Relevant to Health Maintenance Results * (ABNORMAL) Basic metabolic panel (02/18/2024 8:01 AM EST) SODIUM 137 133 - 146 mmol/L [facility] CHLORIDE 102 96 - 108 mmol/L [facility] POTASSIUM 4.4 3.3 - 5.1 mmol/L [facility] CO2 25 21 - 35 mmol/L [facility] BUN 13 6 - 19 mg/dL [facility] CREATININE 0.70 0.5 - 1.5 mg/dL [facility] GLUCOSE 101(H) 70 - 99 mg/dL [facility] CALCIUM 9.7 8.4 - 10.3 mg/dL [facility] EGFR 102 >59 mL/min/1.7 3m2 [facility] Comment:Estimated glomerular filtration rate calculated using the CKD-EPI refit equation. ANION GAP 14 10 - 20 mmol/L [facility] Blood 02/18/2024 8:01 AM EST 02/18/2024 10:00 AM EST Garrett Fletcher MD LAB BLOOD ORDERABLES [facility] [address] [place] [address] * Lipid panel (11/28/2023 1:21 AM EDT) CHOLESTEROL 125 <200 mg/dL [facility] TRIGLYCERIDES 60 35 - 150 mg/dL [facility] HDL 60 40 - 80 mg/dL [facility] CALCULATED LDL 53 50 - 129 mg/dL [facility] VLDL 12 <31 mg/dL [facility] CARDIAC RISK RATIO 2.1 0.0 - 4.0 [facility] Blood 11/28/2023 1:21 AM EDT 11/28/2023 1:35 AM EDT Ayla Owens PA-C LAB BLOOD ORDERAB LES [facility] [address] [place] [address] from Last 3 Months or Most Recently Relevant to Health Maintenance Advance Directives For more information, please contact: [phone] (9AM - 5PM [facility], Sunday-Sunday) * Full Code (Latest Code Status on File) Date Activated Date Inactivated Comments 11/27/2023 4:16 PM Question Answer Comments Code Status Confirmed With: Patient Care Teams Vending Machine Operator Relationship Specialty Start Date End Date Quinton Callahan MD [address] [place] [address] PCP - General Medical Oncology 11/23/23 Additional Source Comments The information contained in this document represents components of the legal health record. It is not the complete legal health record.[facility]
--- OUTSIDE RECORDS SUMMARY | 2024-05-26 19:57 | XMS_ITS ---
Author Organization [facility] Address [address] [place] [address] Care Team Providers Care Knife Glazer Name Role Phone oLndon MORIN, Quinton Primary Care Provider Unavailab Quinton Alvarez Unavailable [phone] REASON FOR VISIT no show Encounters Encounter Location Date Provider Diagnosis [facility] [address] [place] [address] 08/14/2023 Quinton Campos Plan Of Treatment No Information Progress Notes * HERNANDEZJAZMINE HEREDIACARMENHDOB:1960 (63 yo M)Acc No.[id number]:08/14/2023 Patient:?JUAN FRANCISCO HERNANDEZ :1960???Age:63 Y???Sex:Male Address:[address] [place] [address] [place] [address] * true * Date:? Generated for Montanai robby/Jai/eTransmitting on:?05/26/2024 07:57 PM EDT
--- OUTSIDE RECORDS SUMMARY | 2024-05-26 19:57 | XMS_ITS ---
Author Organization Quinton Callahan III, MD Address [address] [place] [address] Care Team Providers Care Powder Operator Name Role Phone Quinton Callahan Primary Care Provider REASON FOR VISIT Verbal Orders Social History Sex Assigned At : Social History Observation Description Sex Assigned At Male Encounters Encounter Location Date Provider Diagnosis Quinton Callahan III, MD [address] [place] [address] [place] [address] 03/04/2024 Quinton Callahan Plan Of Treatment Next Appt Details Provider Name:Quinton Callahan, 10/15/2024 11:00:00 AM, [address] [place] [address] K[address]YN [place]AD[place], [place], [address], Progress Notes * ENCINASAna HEREDIAhDOB:1960 (63 yo M)Acc No.[id number]:03/04/2024 Patient:?Zan ENCINAS :1960???Age:63 Y???Sex:Male Address:[address] [place] [address], [address], [place], [address] * true * Date:? Generated for Montanai robby/Jai/eTransmitting on:?05/26/2024 07:57 PM EDT
--- OUTSIDE RECORDS SUMMARY | 2024-05-26 19:57 | XMS_ITS | Encounter Summary ---
Author Organization [facility] Address [address] [place] [address] [place] [address] Phone Care Team Providers Care Director Telecommunications Name Role Phone Quinton Callahan MD Primary Care Provider +1- [phone] Encounter Details Date Type Department Care Team (Late st Contact Info) Description 12/08/2023 Procedure Pass [facility] EKG [address] [place] [address] Social History Tobacco Use Types Packs/Day Years [...] on filedocumented in this encounter Care Teams Director Telecommunications Relationship Specialty Start Date End Date Quinton Callahan MD [address] [place] [address] PCP - General Medical Oncology 11/23/23 documented as of this encounter Additional Source Comments The information contained in this document represents components of the legal health record. It is not the complete legal health record.[facility]
--- OUTSIDE RECORDS SUMMARY | 2024-05-26 19:57 | XMS_ITS | Encounter Summary ---
Author Organization [facility] Address [address] [place] [address] [place] [address] Phone Care Team Providers Care Yarn Texture Machine Operator Name Role Phone Quinton Callahan MD Primary Care Provider +1- [phone] Encounter Details Date Type Department Care Team (Late st Contact Info) Description 12/02/2023 Procedure Pass [facility] Periop [address] [place] [address] Social History Tobacco Use Types Packs/Day Years [...] on filedocumented in this encounter Care Teams Yarn Texture Machine Operator Relationship Specialty Start Date End Date Quinton Callahan MD [address] [place] [address] PCP - General Medical Oncology 11/23/23 documented as of this encounter Additional Source Comments The information contained in this document represents components of the legal health record. It is not the complete legal health record.[facility]
--- OUTSIDE RECORDS SUMMARY | 2024-05-26 19:58 | XMS_ITS | Encounter Summary ---
Author Organization [facility] Address [address] [place] [address] [place] [address] Phone Care Team Providers Care Supervisor [employer] Name Role Phone Quinton Callahan MD Primary Care Provider +1- [phone] Encounter Details Date Type Department Care Team (Late st Contact Info) Description 11/28/2023 Procedure Pass [facility] [address] [place] [address] Social History Tobacco Use Types Packs/Day Years [...] on filedocumented in this encounter Care Teams Supervisor [employer] Relationship Specialty Start Date End Date Quinton Callahan MD [address] [place] [address] PCP - General Medical Oncology 11/23/23 documented as of this encounter Additional Source Comments The information contained in this document represents components of the legal health record. It is not the complete legal health record.[facility]
--- OUTSIDE RECORDS SUMMARY | 2024-05-26 19:58 | XMS_ITS | Encounter Summary ---
Author Organization [facility] Address [address] [place] [address] [place] [address] Phone Care Team Providers Care Stabilizing Machine Operator Name Role Phone Quinton Callahan MD Primary Care Provider +1- [phone] Encounter Details Date Type Department Care Team (Late st Contact Info) Description 11/28/2023 Procedure Pass [facility] [address] [place] [address] Social History Tobacco Use Types Packs/Day Years [...] on filedocumented in this encounter Care Teams Stabilizing Machine Operator Relationship Specialty Start Date End Date Quinton Callahan MD [address] [place] [address] PCP - General Medical Oncology 11/23/23 documented as of this encounter Additional Source Comments The information contained in this document represents components of the legal health record. It is not the complete legal health record.[facility]
--- OUTSIDE RECORDS SUMMARY | 2024-05-26 19:58 | XMS_ITS | Encounter Summary ---
Author Organization [facility] Address [address] [place] [address] [place] [address] Phone Care Team Providers Care Chief Legal Officer Name Role Phone Quinton Callahan MD Primary Care Provider +1- [phone] Encounter Details Date Type Department Care Team (Late st Contact Info) Description 11/28/2023 Procedure Pass [facility] [address] [place] [address] Social History Tobacco Use Types Packs/Day Years [...] on filedocumented in this encounter Care Teams Chief Legal Officer Relationship Specialty Start Date End Date Quinton Callahan MD [address] [place] [address] PCP - General Medical Oncology 11/23/23 documented as of this encounter Additional Source Comments The information contained in this document represents components of the legal health record. It is not the complete legal health record.[facility]
--- OUTSIDE RECORDS SUMMARY | 2024-05-26 19:58 | XMS_ITS | Patient Health Record ---
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 Problem [id number] Gastroesophageal reflux disease without esophagitis (K21.9) Active confirmed Encounters Encounter Location Date Provider Diagnosis [facility] [address] [place] [address] 08/14/2023 Quinton Campos Plan Of Treatment Future Test Test Name Order Date UPPER GI ENDOSCOPY 03/19/2013 UPPER GI ENDOSCOPY 06/11/2019 COLONOSCOPY 06/11/2019 Insurance Providers Payer Name Payer Address Payer Phone Subscriber Number Group Number Insured Name Patient Relationship to Insured Coverage Start Date Coverage End Date MEDICARE OF [place] [address] [facility] [place] [address] [id number] JUAN FRANCISCO HOWELL Self - patient is the insured Medical (General) History Medical History History ICD Code Colonoscopy in 12/2009 neg e xcept for a hyperplastic polyp, diverticulosis, and internal hemmorhoids GERD with a small area of Ba rrett's esophagus--EGD in 12/2009-small HH-bx neg for dysplasia 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 Knott 06/18/2019
--- OUTSIDE RECORDS SUMMARY | 2024-05-26 19:58 | XMS_ITS | Encounter Summary ---
Author Organization [facility] Address [address] [place] [address] [place] [address] Phone Care Team Providers Care Clinical Research Nurse Name Role Phone Quinton Callahan MD Primary Care Provider [phone]- [phone] Encounter Details Date Type Department Care Team (Late st Contact Info) Description 11/28/2023 Procedure Pass [facility] [address] [place] [address] Social History Tobacco Use Types Packs/Day Years [...] on filedocumented in this encounter Care Teams Clinical Research Nurse Relationship Specialty Start Date End Date Quinton Callahan MD [address] [place] [address] PCP - General Medical Oncology 11/23/23 documented as of this encounter Additional Source Comments The information contained in this document represents components of the legal health record. It is not the complete legal health record.[facility]
--- OUTSIDE RECORDS SUMMARY | 2024-05-26 19:58 | XMS_ITS | Data Portability ---
Author Organization [facility], Main Office Address [address] [facility], [facility] [address] [place] [address] Care Team Providers Care Fmd Teacher Name Role Phone [facility] OTHER KEON HEREDIA Primary Care Provider [...] Organization Details Recorded Time Blood in urine 41477969 Active [address], [address], [place], [address], [facility] 4 10:17:42 Benign prostatic hyperplasia 151674224 Active [address], [address], [place], [address], [facility] 4 10:17:40 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 [address], [address], [place], [address], [facility] 4 10:18:23 Limb ischemia 2655176009804 5 Active [address], [address], [place], [address], [facility] 4 10:19:49 Peripheral arterial disease 558374791 Active [address], [address], [place], [address], [facility] 4 10:21:45 Chronic obstructive pulmonary disease 38824503 Active [address], [address], [place], [address], [facility] 4 10:22:55 Gastroesoph ageal reflux disease 340008599 Active [address], [address], [place], [address], [facility] 4 10:23:11 Smoker 63479524 Active [address], [address], [place], [address], [facility] 4 10:23:08 Essential hypertensio n 37316408 Active [address], [address], [place], [address], [facility] 4 10:25:41 Hyperlipide angela 71451259 Active 2023 Yvonne Belcher [address] [place] [address], [address], [place], [address], [facility] 4 10:49:02 Peripheral vascular disease 573547191 Active 2023 Yvonne Belcher [address] [facility], [address], [place], [address], [facility] 4 10:49:07 Thrombosis of splenic artery 9779847771102 9106 Active 2023 Yvonne Belcher [address] [facility], [address], [place], [address], [facility] 4 10:49:17 Left bundle branch block 42178371 Active 2023 Yvonne Belcher [address] [place] [address], [address], [place], [address], [facility] 4 10:49:21 Palmer's esophagus 752086911 Active 2023 Yvonne Belcher [address] [place] [address], [facility] [address], [place], [address], [facility] 4 10:50:44 Problem Notes None recorded. [...] Current Every Day Smoker Iveth Diaz MD [address] [place] [address], [address], [place], [address], [facility] 02/11/2024 18:13:51 Do You Have An [...] Do You Have A Medical Power Of Day Care Worker? Yes Information not available 02/11/2024 What Was [...] (COVID-19) vaccine, UNSPECIFIED 06/25/2020 completed [facility] [facility] 02/11/2024 12:20:14 SARS-COV-2 (COVID-19) vaccine, UNSPECIFIED 07/27/2020 completed [facility] [employer] [facility] 02/11/2024 12:20:24 Past Encounters Encounter ID Performer Location Encounter Start Date Encounter Closed Date Diagnosis/Indication Diagnosis SNOMED-CT Code Diagnosis ICD10 Code Diagnosis Note [id number] SAMANTHA CONKLIN AT [address] [address] 02/10/2024 10:12:50 02/11/2024 14:36:04 Limb ischemia 9994760862 9105 I99.8 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 s/p R SFA - bk popliteal bypass with vein ([place], 07/2023)con tinue oxycodone 10 mg TID PRNgabapen tin 400 mg QID PRN (odd, would make scheduled) monitor pain controlPT/ OT eval and treatfollo w up with surgeon in 2 weeksshrin ker to be placed once healed- add abd and celeste daily due to bleeding Peripheral arterial insufficiency 1483919010 73114 I73.9 see aboveASA 81 mg dailyfollo wed by vascular Benign pro static hyperplasia 070947467 N40.0 continue flomax 0.8 mg qhsmonitor for outflow issues Gastroesop hageal reflux disease 338790677 K21.9 pantoprazo le 80 mg dailyconsi lia reduction if toleratesm onitor reflux Blood in urine 98624808 R31.9 had inpatientm onitor for clearing Chronic ob structive pulmonary disease 32286930 J44.9 albuterol PRNincruse dailywixel a BIDmonitor resp status Essential hypertension 51694833 I10 assumed as pt is on metoprolol 25 mg daily but no documented htn [facility] need [facility] keep Constipation 90527939 K5 9.00 add colace 100 mg BIDmonitor for improvemen t [id number] Iveth Diaz MD [place] AT [address] [address] 02/11/2024 15:43:03 02/12/2024 15:32:16 Limb ischemia 1287346244 9105 I99.8 Will change oxycodone to 10 [...] with surgeon as planned. Peripheral arterial insufficiency 0590288158 42992 I73.89 Z89.511 As above. Benign pro static hyperplasia 341887860 N40.0 No current sxs.Contin ue tamsulosin 0.8 mg qhsMonitor urinary function Gastroesop hageal reflux disease 742475019 K21.9 No current sxs.Contin ue pantoprazo le 80 mg qdMonitor GI sxs. Blood in urine 05795047 R31.0 Had one episode inpt.Now resolved.M onitor for recurrence . Chronic ob structive pulmonary disease 10938547 J43.8 Resp status good at this time.Liv nue incruse ellipta qd, Wixela 500/50 BID, duonebs BID prn and albuterol MDI 2 puffs q 4 hrs prn.Monito r resp status. Essential hypertension 90739612 I10 In good control since here (HTN is on PCP problem list)Liv nue metoprolol 25 mg qdMonitor BP and labs. Constipation 33256682 K5 9.03 Will add miralax 17 gms qd and continue colace 100 mg BIDUse prn meds if needed.Mon itor bowel function. [id number] Nam CONKLIN AT [address] [address] 02/15/2024 10:31:46 02/18/2024 15:29:05 Postoperative wound cellulitis 928769797 L76.82 exam concerning for cellulitis with increased foul smelling discharges tart doxycyclin e 100mg BID x 10 days, probiotic qd x 14 dayscheck CBC w/diff, BMP ll obtain x-ray R stump r/o osteomonit or for worsening sxs Amputated below knee 299 333779 Z89.519 As above. Limb ischemia 6556673519 9105 I99.8 continue oxycodone to 10 mg q 6 hrs scheduled x 7 days, then 10 mg q 8 hrs scheduled x 7 days then 5 mg q 8 hrs prn.Add oxycodone 10mg q24h prn breakthrou gh paincontin ue APAP 975 mg TID and increase gabapentin to 600 mg TID.Contin ue ASA 81 mg qdF/U with surgeon as planned. [id number] Nam CONKLIN AT [address] [address] 02/19/2024 07:36:20 02/21/2024 12:23:04 Postoperative wound cellulitis 934492243 L76.82 Continue doxycyclin e 100mg BID x 10 days, probiotic qd x 14 dayslabs and x-ray unremarkab lemonitor for resolution Limb ischemia 5148614406 9105 I99.8 continue oxycodone 10 mg q 8 hrs scheduled x 7 days then 5 mg q 8 hrs prn. oxycodone 10mg q24h prn breakthrou gh paincontin ue APAP 975 mg TID and gabapentin to 600 mg qam and afternoon, 900mg qhsContinu e ASA 81 mg qdconsult PMR management of painF/U with surgeon as planned. Amputated below knee 299 185881 Z89.519 As above. [id number] SanchezGayCooper [facility] AT [address] [address] 02/22/2024 09:19:49 02/25/2024 15:55:50 Postoperative wound cellulitis 696251088 L76.82 Continue doxycyclin e 100mg BID x 10 days, probiotic qd x 14 dayslabs and x-ray unremarkab lemonitor for resolution Limb ischemia 9055725015 9105 I99.8 continue oxycodone 10 mg q 8 hrs scheduled x 7 days then 5 mg q 8 hrs prn. oxycodone 10mg q24h prn breakthrou gh paincontin ue APAP 975 mg TID and gabapentin to 600 mg qam and afternoon, 900mg qhsContinu e ASA 81 mg qdconsult PMR management of painF/U with surgeon as planned. Amputated below knee 299 684491 Z89.519 As above. [id number] Nam CONKLIN AT [address] [address] 02/25/2024 07:30:39 02/26/2024 13:58:50 Postoperative wound cellulitis 594505923 L76.82 resolvedmo nitor for recurrence Limb ischemia 9364012594 9105 I99.8 continue oxycodone 10 mg q 8 hrs scheduled x 7 days then 5 mg q 8 hrs prn. oxycodone 10mg BID prn breakthrou gh paincontin ue APAP 975 mg TID, INcrease gabapentin to 900 mg qam and afternoon, 900mg qhsContinu e ASA 81 mg qdconsult PMR management of painF/U with surgeon as planned. Amputated below knee 299 532338 Z89.519 As above. [id number] HallieCooper [facility] AT [address] [address] 02/28/2024 08:43:00 02/29/2024 10:22:21 Limb ischemia 9333670536 9105 I99.8 continue oxycodone 10 mg q 8 hrs scheduled x 7 days then 5 mg q 8 hrs prn. oxycodone 10mg BID prn breakthrou gh paincontin ue APAP 975 mg TID, gabapentin to 900 mg TIDContinu e ASA 81 mg qdconsult PMR management of painF/U with surgeon as planned. Amputated below knee 299 702445 Z89.519 As above. [id number] MD RUBIN Enciso AT [address] [address] 03/03/2024 11:24:29 03/27/2024 10:48:50 Limb ischemia 3920609476 9105 I99.8 s/p amputation cleared for discharge with services and ortho f/u in placedisch arged on oxycodone 5 mg q 8 prn pain #23 tablets given at time of dischargep atient will need appointmen t with PCP for f/u discussed with nursing to schedule prior to discharge Amputated below knee 299 530192 Z89.519 As above. Health Concerns Section Related Observation LastModified by Organization Detai ls LastModified Time None Recorded Concern Status LastModified by Organization Details LastModified Time None Recorded Advance Directives Directive Y: Payers Encounter Date Sequence Insurance Name Policy Number Policy Matute Covered Member ID Matute Member ID Guarantor Name 02/19/2024 1 [employer] (MEDICARE REPLACEMENT PPO) [id number] [id number] [facility] 02/22/2024 1 [employer] (MEDICARE REPLACEMENT PPO) [id number] [facility] [id number] [facility] 02/25/2024 1 [employer] (MEDICARE REPLACEMENT PPO) [id number] Zan Encinas [id number] [facility] 02/28/2024 1 [employer] (MEDICARE REPLACEMENT PPO) [id number] Zan Encinas [id number] [facility] 03/03/2024 1 [employer] (MEDICARE REPLACEMENT PPO) [id number] Zan Schulerenter [id number] [facility] Notes Date Note Type Note Provider [...] f/t/h occlusion of bypass now s/p R TUBULAR STOCK GLASS BULB MACHINE FORMER-AT bypass w ePTFE w/ patch angioplasties ([place] 12/01). [facility] [address] [place] [address], [address], [place], [address], [facility] [employer] 02/19/2024 09:56:01 02/22/2024 text/html This is a [...] f/t/h occlusion of bypass now s/p R TUBULAR STOCK GLASS BULB MACHINE FORMER-AT bypass w ePTFE w/ patch angioplasties ([place] 12/01). [facility] [address] [facility], [address], [place], [address], [employer] 02/22/2024 11:16:10 02/25/2024 text/html This is a 63 yo man who is being seen for acute rounding visit Patient doing well todayPain controlled with oxycodone. Gabapentin increased last week at f/u vascular with IMprovement. Reported increased pain over the weekend with 1x dose oxycodone 10mg.Actively participating in therapyself-propelling around unit in w/cPMR consulted Patient seen sitting in room in bed in [facility]. He tells me for the most part [...] f/t/h occlusion of bypass now s/p R TUBULAR STOCK GLASS BULB MACHINE FORMER-AT bypass w ePTFE w/ patch angioplasties ([place] 12/01). [facility] [address] [facility], [address], [place], [address], [employer] [facility] 02/25/2024 11:08:05 02/28/2024 text/html This is a 63 yo man who is being seen for acute rounding visit Patient had f/u vascular on 02/25recs to continue with daily dressing changes noted with small open area on medial aspectNo film touch up inspector or prosthesis yet. The site needs to be completely healed first. Can increase gabapentin 900mg TID and decrease oxycodone.f/u 03/11/24 Patient seen lying in bed with benefits administrator doing dressing change. He reports improvement in [...] f/t/h occlusion of bypass now s/p R TUBULAR STOCK GLASS BULB MACHINE FORMER-AT bypass w ePTFE w/ patch angioplasties ([place] 12/01). [facility] [address] [facility], [address], [place], [address], [facility] [employer] 02/28/2024 12:14:07 03/03/2024 text/html Patient is a [...] f/u in place Garrett Fletcher MD [address] [facility], [address], [place], [address], [facility] 03/03/2024 11:33:58
--- OUTSIDE RECORDS SUMMARY | 2024-05-26 19:58 | XMS_ITS ---
Author Organization [facility] Address [address] [place] [address] Care Team Providers Care Diesel Tractor Operator Name Role Phone [place] MORIN, Quinton Primary Care Provider Unavailab Quinton Alvarez [phone] REASON FOR VISIT Patient presents today for EGD, NUGENT'S ESOPHAGUS Encounters Encounter Location Date Provider Diagnosis [facility] [address] [place] [address] 08/14/2023 Quinton Campos Plan Of Treatment No Information Progress Notes * SHAUNA HERNANDEZHDOB:1960 (64 yo M)Acc No.[id number]:08/14/2023 Progress Notes Patient:?JUAN FRANCISCO HERNANDEZ Provider:?Quinton Campos MD :1960???Age:63 Y???Sex:Male Duc e:08/14/2023 Address:[address] [place] [address] [facility] Pcp:Quinton Callahan MD Subjective: * Chief Complaints: [...] MD Date:? 024 Generated for Printi ng/Faxing/eTransmitting on:?05/26/2024 07:57 PM EDT
--- OUTSIDE RECORDS SUMMARY | 2024-05-26 19:58 | XMS_ITS ---
Author Organization Quinton Callahan III, MD Address [address] [place] [address] Care Team Providers Care Food And Beverage Lead Name Role Phone Quinton Callahan Primary Care Provider Medications Medication SIG (Take, Route, Frequency, Duration) [...] tablet by mouth once daily Active Nystatin 683304 UNIT/GM 1 application Ex ternally Twice a day 12/21/2023 Active Social History Sex Assigned At : Social History Observation Description Sex Assigned At Male Encounters Encounter Location Date Provider Diagnosis Quinton Callahan III, MD [address] [place] [address] [place] [address] 05/02/2024 Quinton Callahan Plan Of Treatment Next Appt Details Provider Name:Quinton Callahan, 10/15/2024 11:00:00 AM, [address] [place] [address] [place], [address], Progress Notes * Ana ENCINAShDOB:1960 (64 yo M)Acc No.[id number]:05/02/2024 Patient:?Zan ENCINAS :1960???Age:64 Y???Sex:Male Address:[address] [place] [address], [address] Subjective: * Chief Complaints: * ??? * Medical History:? * Surgical History:? * Hospitalization/Major Diagno stic Procedure:? * Medications:?TakingNystatin 876771 UNIT/GM Powder 1 application Externally Twice a [...] Tablet Orally twice a day Taking Nystatin 507782 UNIT/GM Powder 1 application Externally Twice a [...] true * Date:? Generated for Tristen bustamante/Jai/Henrry on:?05/26/2024 07:58 PM EDT
--- OUTSIDE RECORDS SUMMARY | 2024-05-26 19:58 | XMS_ITS ---
Author Organization Quinton Callahan III, MD Address [address] [place] [address] Care Team Providers Care Investment Advisor Name Role Phone Quinton Callahan Primary Care [...] Date Provider Diagnosis Quinton Callahan III, MD [address] [place] [address] [place] [address] 05/02/2024 Quinton Callahan Peripheral arterial disease I73.9 Assessments Encounter Date Diagnosis (ICD Code) Assessment Notes Treatment Notes Treatment Clinical Notes 05/02/2024 Peripheral arterial disease (ICD-10 - I73.9) Plan Of Treatment Medication Medication Name Sig Start Date Stop Date Notes Metoprolol Succinate ER 25 MG 1 tablet O rally Once a day for 30 days Next Appt Details Provider Name:Quinton Callahan, 10/15/2024 11:00:00 AM, [address] [place] [address] [place], [address], Progress Notes * ENCINASAnahDOB:1960 (64 yo M)Acc No.[id number]:05/02/2024 Patient:?Zan ENCINAS :1960???Age:64 Y???Sex:Male Address:[address] [place] [address], [address], [place], [address] * Refills? Refill Metoprolol Succinate ER Tablet Extended Release 24 Hour, 25 MG, Orally, 30 Tablet, 1 tablet, Once a day, 30 days, Refills=11 * true * Date:? Generated for Tristen bustamante/Jai/Allysonitting on:?05/26/2024 07:58 PM EDT
[2024-05-26 20:19] VITALS: BP 124/75; PULSE 65; RESP 16; TEMP 36.9; O2SAT 98
[2024-05-26] MEDS: Piperacillin Sodium/Tazobactam 3.375 GM in 0.9 % Sodium Chloride 50 ML IV (21:26)
[2024-05-26 21:48] VITALS: BP 132/69; PULSE 52; RESP 16; TEMP 37.4; O2SAT 95
--- NOTE | 2024-05-26 21:50 | PHA.MEDREC ---
Pharmacy Consult ? Medication Reconciliation Pharmacy has completed the medication reconciliation. Spoke with patient in ED who knew all meds and doses. Patient states he has been taking an extra gabapentin capsule before bedtime to help with pain. He takes his ibuprofen with his gabapentin.
--- NOTE | 2024-05-26 22:02 | P.HPHOSP_ITS ---
History of Present Illness Date of Service: 05/26/24 Chief Complaint: Leg infection This is a 64-year-old male with pertinent history of PAD status post right BKA, atrial fibrillation not on anticoagulation, BPH, gastroesophageal reflux disease, COPD not on home oxygen who presents to the emergency department for evaluation of worsening redness and pain over right BKA stump. Patient underwent right BKA on 02/04/2024. He is followed by vascular surgery who he last saw on 05/20/24. Patient states that over the last 1 week he has noticed increased pain and redness over the right BKA stump. Also noticed purulent foul-smelling drainage that has increased over the last 1 week. Admits chills but no documented temperature. No nausea, vomiting, chest pain, palpitations, shortness of breath, abdominal pain, changes in urinary or bowel habits. In the emergency department, imaging with soft edema of the distal stump. Patient was given IV vancomycin and IV Zosyn Review of Systems 2 Constitutional: Constitutional: Reports chills Cardiovascular: Cardiovascular: Reports no additional cardiovascular complaints Respiratory: Respiratory: Reports no additional respiratory complaints Gastrointestinal: Gastrointestinal: Reports no additional gastrointestinal complaints Genitourinary: Genitourinary: Reports no additional male genitourinary complaints [facility] Medical History Krish angina Left bundle branch block Bakers cyst Nicotine dependence, cigarettes, uncomplicated Arthritis BPH (benign prostatic hyperplasia) Elevated cholesterol Complex regional pain syndrome i of right lower limb S/P angiogram of extremity (07/18/23) Atrial fibrillation History of Palmer's esophagus Splenic vein thrombosis History of femoral angiogram GERD (gastroesophageal reflux disease) COPD (chronic obstructive pulmonary disease) Peripheral arterial disease Surgical History History of tonsillectomy Hx of oral surgery Hx of tracheostomy History of esophagogastroduodenoscopy (EGD) H/O colonoscopy Social History Household Members: Family Household Members Other:: Son, son girlfriend, grandbaby Housing: Apartment Housing Other:: 3 stairs to climb Are you a primary physician primary care sports medicine to a significant other at home: No Do you presently have visiting nurse or other home services: Yes Comment: Dr Knott made aware of absent pulse and sensation in right foot Patient Tobacco Use Status: Former Tobacco user Tobacco use type: Cigarette Cigarette Packs Per Day: 0.5 Cigarettes Per Day: 10 Years Smoked: 50 Smoked in Last 30 Days: Yes e-Cigarette/Vaping Use: Former Use Second Hand Smoke Exposure: No Use of substances other than those prescribed or required for medical reasons: Yes Substance Use Type: Marijuana Substance Use Frequency: Chronic Longstanding Advance Directives: No Advance Directives Information Provided: No service: No Meds Allergies Allergy/AdvReac Type Severity Reaction Status Date / Time No Known Allergies Allergy Verified 05/26/24 14:59 Active Medications: Current Medications Acetaminophen (Acetaminophen 325 Mg Tablet) 650 mg PO Q6H PRN PRN Reason: Pain, Mild 1-3,fever,headache Calcium Carbonate (Calcium Carbonate 750 Mg Tab.Chew) 750 mg PO Q4H PRN PRN Reason: Heartburn Enoxaparin Sodium (Enoxaparin Sodium 40 Mg/0.4 Ml Syringe) 40 mg SUBCUT Q24H [facility] Vancomycin HCl (Vancomycin/Ns) 2,000 mg in 500 mls @ 250 mls/hr IV ONCE ONE Stop: 05/26/24 22:54 Magnesium Hydroxide (Milk Of Magnesia 30 Ml Oral.Susp) 30 ml PO DAILY PRN PRN Reason: Constipation Melatonin (Melatonin 3 Mg Tablet) 6 mg PO BEDTIME PRN PRN Reason: Insomnia Pharmacy Consult (Consult Rx Vancomycin Dosing) 1 each MISCELLANE DAILY PRN PRN Reason: Consult order Sodium Chloride (0.9 % Sodium Chloride Flush 3 Ml Syringe) 3 ml IVFLUSH QSHIFT [facility] Home Medications ?Medication ?Instructions ?Recorded ?Confirmed ?Last Taken ?Type aspirin 81 mg tablet,delayed 81 mg PO DAILY 01/12/20 05/26/24 05/26/24 History release (Luis Low Dose Aspirin) pantoprazole 40 mg tablet,delayed 80 mg PO DAILY@0630 01/12/20 05/26/24 05/26/24 History release tamsulosin 0.4 mg capsule 0.8 mg PO DAILY 01/12/20 05/26/24 05/26/24 History atorvastatin 10 mg tablet 10 mg PO DAILY 05/04/20 05/26/24 05/26/24 History amwgpxmx-fx-kmuza 300 mcg-K 60 1 tab PO DAILY 10/02/23 05/26/24 05/26/24 History mcg-lycop 600 mcg-lutein 300 mcg tablet (Centrdenis Ovalle Men) metoprolol succinate 25 mg 25 mg PO DAILY 12/17/23 05/26/24 05/26/24 History tablet,extended release 24 hr albuterol sulfate 90 mcg/actuation 2 puff inhalation Q4H PRN 01/07/24 05/26/24 Unknown History aerosol inhaler shortness of breath or wheezing umeclidinium 62.5 mcg/actuation 1 inh inhalation DAILY 01/07/24 05/26/24 05/26/24 History blister powder for inhalation (Incruse Ellipta) fluticasone 500 mcg-salmeterol 50 1 inh inhalation BID 05/26/24 05/26/24 05/26/24 History mcg/dose blistr powdr for inhalation (Wixela Inhub) gabapentin 300 mg capsule 300 mg PO TID@1000,1700,2100 05/26/24 05/26/24 05/26/24 History ibuprofen 200 mg tablet 600 mg PO TID@1000,1700,2100 05/26/24 05/26/24 05/26/24 History Physical Exam 2 Vital Signs and Narrative: Vital Signs: Last Vital Signs Temp 99.4 F 05/26/24 21:48 Pulse 52 05/26/24 21:48 Resp 16 05/26/24 21:48 BP 132/69 05/26/24 21:48 Pulse Ox 95 05/26/24 21:48 O2 Del Method Room Air 05/26/24 21:48 BMI result Body Mass Index 25.1 Middle-aged male lying in bed in no distress Neck supple, no JVD Regular rate and rhythm, S1-S2 heard Regular breath sounds bilaterally, no wheezing or crackles appreciated Abdomen soft nontender, no guarding, no rigidity Patient is awake, alert and oriented to self, place, time and person ; no focal motor deficit Psych: Normal mood Right BKA stump with erythema, tenderness and purulent drainage Results Labs 05/26/24 15:18 05/26/24 15:18 Labs: Laboratory Results - last 24 hr 05/26/24 05/26/24 15:18 17:08 MCV 89.1 MCH 29.5 MCHC 33.1 RDW 14.1 Plt Count 327 MPV 10.0 Immature Gran % (Auto) 0.4 Neut % (Auto) 70.5 Lymph % (Auto) 16.8 L Ogle % (Auto) 9.1 Eos % (Auto) 2.6 Baso % (Auto) 0.6 Lymph # (Auto) 1.8 Ogle # (Auto) 1.0 Eos # (Auto) 0.3 Baso # (Auto) 0.1 Abs Immat Gran (auto) 0.04 H Absolute Neuts (auto) 7.7 Absolute Nucleated RBC 0.000 Nucleated RBC % (auto) 0.0 ESR 10 Anion Gap 14 Estim Creat Clear Calc 99.6 Estimated GFR > 60 Random Glucose 94 Lactic Acid 1.4 Calcium 9.1 Total Bilirubin 0.4 AST 23 ALT 13 Alkaline Phosphatase 92 C-Reactive Protein 1.01 H Total Protein 6.5 Albumin 3.6 Imaging Radiologist's Impressions: Impressions Knee X-Ray 05/26/24 14:52 IMPRESSION: 1. Below the knee amputation without radiographic changes of osteomyelitis evident. 2. Osteopenia. 3. Stent in the SFA. 4. Soft edema of the distal stump. Electronically signed by: Alvarado Cortes MD 05/26/2024 03:32 PM EDT RP Assessment and Plan (1) Cellulitis: Status: Acute Plan This is a 64-year-old male with pertinent history of PAD status post right BKA, atrial fibrillation not on anticoagulation, BPH, gastroesophageal reflux disease, COPD not on home oxygen who presents to the emergency department for evaluation of worsening redness and pain over right BKA stump. #. Right BKA stump cellulitis: Will admit patient with IV vancomycin due to extensive cellulitis. No sepsis. Obtaining MRI to rule out underlying osteo. #. COPD: No exacerbation during admission. Continue home inhalers #. Peripheral arterial disease: On aspirin, statin and gabapentin #. BPH: On Flomax #. Gastroesophageal reflux disease: On PPI DVT prophylaxis: Lovenox Full code Admit as inpatient and will require two night minimum hospital stay for IV antibiotics (as above), which is not possible in a lesser acute setting. Quality Stroke Does the patient have a stroke diagnosis?: No VTE Prior VTE?: No VTE Risk Level:: Medical - moderate - high VTE Device Contraindication: Treatment Not Indicated VTE Drug Contraindication: N/A - Med Ordered
--- NOTE | 2024-05-26 22:07 | MHC.EDTECH ---
2200 rounding done ,vitals taken ,Patient belongings list done ,Call le within Pt reach .
[2024-05-26] MEDS: vancomycin/NS 2,000 MG/500 ML PLAST..BAG 250 MG IV (22:11)
--- NOTE | 2024-05-26 22:19 | PHA.PROG ---
Admission Date/Time: May 26, 2024 21:58 Indication: skin + skin structure Weight in k.915 kg Adjusted body weight in Kg: [place] body weight in Kg: Obesity Dosing Indication % IBW: BMI 25.1 Serum Creatinine - Last 168 Hours 05/26/24 15:18 Creatinine 0.80 Estimated CrCl and GFR - Last 168 Hours 05/26/24 15:18 Estim Creat Clear Calc 99.6 Estimated GFR > 60 Vancomycin Loading Dose: 2000mg X1 Current Vancomycin Dosing Regimen: 1000mg Q12H Vancomycin Monitoring using AUC goal of 400 - 600 range with trough as surrogate marker: 481 Date and Time for next Vancomycin Level to be drawn: 05/27 @2100 Pharmacist Comments on Vancomycin Plan: Starting off less aggressive as pt BMI is good and renal function appears stable (+indication), predicted trough 15.1. To be checked tomorrow before 3rd dose. Vancomycin dosing will take advantage of [employer] as a clinical decision support tool that uses Bayesian modeling to calculate individual patient's pharmacokinetic parameters and forecast the patient's drug concentration time course with the target goal AUC 24 range of 400 - 600 mg/L/hr.
[2024-05-26] MEDS: Gabapentin 300 MG CAPSULE PO (22:33)
[2024-05-26] MEDS: Enoxaparin Sodium 40 MG/0.4 ML SYRINGE SUBCUT (22:41)
--- NOTE | 2024-05-26 22:55 | PC.NURSE ---
Report given to JULIEN Contreras.
--- NOTE | 2024-05-26 23:30 | PC.NURSE ---
Pt aox4, resting at the bedside. R BKA with purulent drainage and redness at the wound site. Pt reports pain at the site, /. Wound pat dry with gauze, applied dry sterile dressing to keep he wound covered and cleaned. Pt aware of plan of care. Pending bed assingment.
[2024-05-26 23:35] VITALS: BP 138/69; PULSE 60; RESP 16; TEMP 36.9; O2SAT 96
[2024-05-27 02:10] VITALS: BP 139/71; PULSE 66; RESP 18; TEMP 36.5; O2SAT 95
--- NOTE | 2024-05-27 02:41 | PC.NURSE ---
pt all settled into room, call le within reach, bed alarm on, wheelchair at bedside, new dressing placed to KA, erythema noted with some purulent drainage noted, rinsed with saline, silver alginate applied with gauze sponge, and gauze wrap
--- NOTE | 2024-05-27 03:05 | HO.SKINPHOTO ---
Location: RBKA infection Category: Stage: Length: Width: Depth: cm Location: Category: Stage: Length: Width: Depth: cm Location: Category: Stage: Length: Width: Depth: cm Location: Category: Stage: Length: Width: Depth: cm Location: Category: Stage: Length: Width: Depth: cm Location: Category: Stage: Length: Width: Depth: c
[2024-05-27] MEDS: Omeprazole 40 MG CAPSULE.DR PO (05:45)
[2024-05-27 06:38] LABS: MANUAL DIFF FLAG NO
[2024-05-27 06:45] LABS: Basophils Absolute Auto 0.1 X10*3/uL (0.0-0.2); Basophils Percent Auto 0.9 % (0-2); Eosinophils Absolute Auto 0.3 X10*3/uL (0.0-0.4); Eosinophils Percent Auto 2.9 % (0-4); Hematocrit 46.3 % (42.0-52.0); Hemoglobin 15.4 g/dl (14.0-18.0); Imm Gran Abs Auto 0.04 X10*3/uL (0.00-0.03); Imm Gran Pct Auto 0.4 % (0.0-0.4); Lymphocytes Absolute Auto 1.8 X10*3/uL (1.2-4.9); Mean Corpuscular HGB Conc 33.3 g/dl (31.0-36.0); Mean Corpuscular Hemoglobin 29.8 pg (27.0-33.0); Mean Corpuscular Volume 89.6 fL (80.0-98.0); Mean Platelet Volume 9.6 fL (9.4-12.4); Monocytes Percent Auto 11.2 % (2-11); Neutrophils Percent Auto 65.6 % (45-73); Platelet Count 286 X10*3/uL (160-400); Red Blood Count 5.17 X10*6/uL (4.60-5.80); Red Cell Distribution Width 13.8 % (11.0-16.0); White Blood Count 9.2 X10*3/uL (4.8-10.8)
[2024-05-27 07:03] LABS: Creatinine Clr Calc Pharmacy 94.9; Estimated Glomerular Filt Rate > 60
[2024-05-27 07:28] LABS: Anion Gap 10 (12-20); Blood Urea Nitrogen 11 mg/dL (9-16); Carbon Dioxide 27 mmol/L (22-29); Chloride 107 mmol/L (96-108); Creatinine Clr Calc Pharmacy 99.6; Estimated Glomerular Filt Rate > 60; Glucose Random 102 mg/dL (60-115); Potassium 3.8 mmol/L (3.3-5.1); Sodium 140 mmol/L (135-145)
[2024-05-27 07:48] VITALS: BP 145/74; PULSE 59; RESP 18; TEMP 36.6; O2SAT 97
[2024-05-27] MEDS: Tamsulosin HCL 0.4 MG CAPSULE 0.8 MG PO (08:03)
[2024-05-27] MEDS: Metoprolol Succinate ER 25 MG TAB.ER.24H PO (08:04)
[2024-05-27] MEDS: Multivitamin TABLET 1 TAB PO (08:04)
[2024-05-27] MEDS: Aspirin Enteric Coated 81 MG TABLET.DR PO (08:04)
[2024-05-27] MEDS: Atorvastatin Calcium 10 MG TABLET PO (08:04)
[2024-05-27] MEDS: Acetaminophen 325 MG TABLET 650 MG PO (08:04)
[2024-05-27] MEDS: 0.9 % Sodium Chloride Flush 3 ML SYRINGE IVFLUSH ×2 (08:06→15:17)
--- NOTE | 2024-05-27 09:36 | P.CONGS_ITS ---
<Statement entered by Bimal Knott MD - 05/28/24 11:41> I have seen and evaluated the patient and agree with history, findings, assessment and plan documented by Sera Saxena PA-c. Positive for osteomyelitis. Will require 6 weeks of IV antibiotic therapy. History of Present Illness Consult details Consult date: 05/27/24 Narrative: We were consulted on Zan, for concerns of cellulitis in the right BKA site. He was recently seen at our office last week, which we did order an outpatient MRI for concerns of osteo, not done yet. He presented to the ER yesterday with concerns of increased pain, redness, and swelling in the area of the small open wound in the middle of the BKA site. He states that over the last week there has been more yellow-green drainage with increased pain and redness over the last couple of days. He denied any fever but states he did have some chills a couple of days ago and felt feverish. He was admitted and started on IV Vanco and Zosyn. He states he feels a little better this morning. He has not eaten this morning but states he slept better than he has in the last couple of days. Review of Systems 2 Constitutional: Constitutional: Reports as per HPI and Denies weakness ENT: Reports Normal hearing present and Denies dizziness Cardiovascular: Cardiovascular: Reports as per HPI, Denies chest pain, Denies chest pain at rest, Denies chest pain with activity, Denies dyspnea and Denies dyspnea on exertion Respiratory: Respiratory: Reports as per HPI, Denies cough, Denies dyspnea and Denies dyspnea on exertion Gastrointestinal: Gastrointestinal: Reports as per HPI, Denies abdominal pain, Denies nausea and Denies vomiting Musculoskeletal: Musculoskeletal: Denies numbness Integumentary/Breasts: Skin/Breast: Reports as per HPI, Denies erythema and Denies wounds Neurologic: Reports Normal hearing present, Denies dizziness, Denies numbness, Denies Sensory deficit (Neuro) and Denies weakness Psychiatric: Psychiatric: Reports no additional psychiatric complaints Endocrine: Endocrine: Reports no additional endocrine complaints PMFSH Past Medical History Medical History Krish angina Left bundle branch block Bakers cyst Nicotine dependence, cigarettes, uncomplicated Arthritis BPH (benign prostatic hyperplasia) Elevated cholesterol Complex regional pain syndrome i of right lower limb S/P angiogram of extremity (07/18/23) Atrial fibrillation History of Palmer's esophagus Splenic vein thrombosis History of femoral angiogram GERD (gastroesophageal reflux disease) COPD (chronic obstructive pulmonary disease) Peripheral arterial disease Surgical History Surgical History History of tonsillectomy Hx of oral surgery Hx of tracheostomy History of esophagogastroduodenoscopy (EGD) H/O colonoscopy Social History Social History Household Members: None Household Members Other:: Son, son girlfriend, grandbaby Housing: House Housing Other:: 3 stairs to climb Are you a primary career development counselor to a significant other at home: No Do you presently have visiting nurse or other home services: Yes Comment: Dr Knott made aware of absent pulse and sensation in right foot Patient Tobacco Use Status: Current everyday Tobacco user Tobacco use type: Cigarette Cigarette Packs Per Day: 0.5 Cigarettes Per Day: 10 Years Smoked: 50 e-Cigarette/Vaping Use: Currently Using Second Hand Smoke Exposure: No Substance Use Type: Marijuana service: No Meds Allergies Allergy/AdvReac Type Severity Reaction Status Date / Time No Known Allergies Allergy Verified 05/26/24 14:59 Active Medications: Current Medications Acetaminophen (Acetaminophen 325 Mg Tablet) 650 mg PO Q6H PRN PRN Reason: Pain, Mild 1-3,fever,headache Last Admin: 05/27/24 08:04 Dose: 650 mg Albuterol Sulfate (Albuterol Sulfate 90 Mcg 8 Gm Inhaler) 2 puff INHALE Q4H PRN PRN Reason: shortness of breath or wheezing Albuterol/Ipratropium (Albuterol/Iprat 2.5/0.5mg 3 Ml Ampul.Neb) 3 ml INHALE BID PRN PRN Reason: wheezing Aspirin (Aspirin Enteric Coated 81 Mg Tablet.) 81 mg PO DAILY [facility] Last Admin: 05/27/24 08:04 Dose: 81 mg Atorvastatin Calcium (Atorvastatin Calcium 10 Mg Tablet) 10 mg PO DAILY [facility] Last Admin: 05/27/24 08:04 Dose: 10 mg Calcium Carbonate (Calcium Carbonate 750 Mg Tab.Chew) 750 mg PO Q4H PRN PRN Reason: Heartburn Enoxaparin Sodium (Enoxaparin Sodium 40 Mg/0.4 Ml Syringe) 40 mg SUBCUT Q24H [facility] Last Admin: 05/26/24 22:41 Dose: 40 mg Fluticasone/Vilanterol (Fluticasone/Vilanterol 200/25 Blst.W.Dev) 1 puff [facility] Gab[facility]entin (Gabapentin 300 Mg Capsule) 300 mg PO TID@1000,1700,2100 [facility] Last Admin: 05/26/24 22:33 Dose: 300 mg Vancomycin HCl 1,000 mg/ (Sodium Chloride) 270 mls @ 270 mls/hr IV Q12H [facility] Magnesium Hydroxide (Milk Of Magnesia 30 Ml Oral.Susp) 30 ml PO DAILY PRN PRN Reason: Constipation Melatonin (Melatonin 3 Mg Tablet) 6 mg PO BEDTIME PRN PRN Reason: Insomnia Metoprolol Succinate (Metoprolol Succinate Er 25 Mg Tab.Er.24h) 25 mg PO DAILY [facility]; Protocol Last Admin: 05/27/24 08:04 Dose: 25 mg Multivitamins/Vitamin C (Multivitamin Tablet) 1 tab PO DAILY [facility] Last Admin: 05/27/24 08:04 Dose: 1 tab Omeprazole (Omeprazole 40 Mg Capsule.Dr) 40 mg PO DAILY@0630 [facility] Last Admin: 05/27/24 05:45 Dose: 40 mg Pharmacy Consult (Consult Rx Vancomycin Dosing) 1 each MISCELLANE DAILY PRN PRN Reason: Consult order Sodium Chloride (0.9 % Sodium Chloride Flush 3 Ml Syringe) 3 ml IVFLUSH QSHIFT [facility] Last Admin: 05/27/24 08:06 Dose: 3 ml Tamsulosin HCl (Tamsulosin Hcl 0.4 Mg Capsule) 0.8 mg PO DAILY [facility] Last Admin: 05/27/24 08:03 Dose: 0.8 mg Tiotropium [place] (Tiotropium [place] 2.5 Mcg 1 Puff/2.5 Mcg Mist.Inhal) 2 puff INHALE [facility] Home Medications ?Medication ?Instructions ?Recorded ?Confirmed ?Last Taken ?Type aspirin 81 mg tablet,delayed 81 mg PO DAILY 01/12/20 05/26/24 05/26/24 History release (Luis Low Dose Aspirin) pantoprazole 40 mg tablet,delayed 80 mg PO DAILY@0630 01/12/20 05/26/24 05/26/24 History release tamsulosin 0.4 mg capsule 0.8 mg PO DAILY 01/12/20 05/26/24 05/26/24 History atorvastatin 10 mg tablet 10 mg PO DAILY 05/04/20 05/26/24 05/26/24 History cipozqmg-mx-bzybv 300 mcg-K 60 1 tab PO DAILY 10/02/23 05/26/24 05/26/24 History mcg-lycop 600 mcg-lutein [facility] metoprolol succinate 25 mg 25 mg PO DAILY 12/17/23 05/26/24 05/26/24 History tablet,extended release 24 hr albuterol sulfate 90 mcg/actuation 2 puff inhalation Q4H PRN 01/07/24 05/26/24 Unknown History aerosol inhaler shortness of breath or wheezing umeclidinium 62.5 mcg/actuation 1 inh inhalation DAILY 01/07/24 05/26/24 05/26/24 History blister powder for inhalation (Incruse Ellipta) fluticasone 500 mcg-salmeterol 50 1 inh inhalation BID 05/26/24 05/26/24 05/26/24 History mcg/dose blistr powdr for inhalation (Wixela Inhub) gabapentin 300 mg capsule 300 mg PO TID@1000,1700,2100 05/26/24 05/26/24 05/26/24 History ibuprofen 200 mg tablet 600 mg PO TID@1000,1700,2100 05/26/24 05/26/24 05/26/24 History Physical Exam 2 Vital Signs: Vital Signs: Last Vital Signs Temp 97.9 F 05/27/24 07:48 Pulse 59 05/27/24 07:48 Resp 18 05/27/24 07:48 BP 145/74 H 05/27/24 07:48 Pulse Ox 97 05/27/24 07:48 O2 Del Method Room Air 05/27/24 07:48 BMI result Body Mass Index 25.1 Const: General: healthy appearing and no acute distress O rientation/consciousness: patient oriented x3 HEENT: Head: Yes normal to inspection Ears: hearing grossly normal bilaterally Mouth: Normal oral and palatal mucosa present Resp: Effort & Inspection: normal respiratory effort and able to speak in complete sentences Auscultation: clear to auscultation bilaterally Cardio: Jugular venous distension: no JVD Rate: regular rate Rhythm: r egular rhythm Heart sounds: S1 normal heart sound present and S2 normal heart sound present Bruits: no abdominal aortic bruits, no carotid bruits, no femoral bruits and no renal bruits Peripheral pulses: Peripheral pulses 2+ throughout GI: Inspection: Yes normal to inspection Palpation (GI): No Abdominal aortic bruit present Skin: General skin exam: no rashes or lesions noted Wounds: no wounds H air: normal Neuro: General: patient oriented x3 Cranial nerves: Yes Normal hearing present Cognition (Neuro): normal cognition Gait exam (Neuro): Normal gait present Motor exam (neuro): 5/5 motor strength present throughout Sensory Exam: No Sensory deficit (Neuro) Extrem: Other: Right BKA site: Medial wound closed and scabbing over. Mid-incision - measuring 0.5cmx0.5cm, unchanged from 05/06. Increased serous yellow drainage noted. Able to probe to the bone, appx 1cm down. No bleeding noted. Erythema noted above and below the open area, painful to palpation. General: Yes normal to inspection, Yes full ROM, Yes capillary refill normal and Yes normal gait Results Labs 05/27/24 05:55 05/27/24 05:55 Labs: Abnormal lab results 05/26/24 05/27/24 Range/Units 15:18 05:55 WBC 10.9 H (4.8-10.8) X10*3/uL Lymph % (Auto) 16.8 L 19.0 L (20-40) % Ray % (Auto) 11.2 H (2-11) % Abs Immat Gran (auto) 0.04 H 0.04 H (0.00-0.03) X10*3/uL Carbon Dioxide 21 L (22-29) mmol/L Anion Gap 10 L (12-20) C-Reactive Protein 1.01 H (< or = 0.50) mg/dL Short CBC 05/26/24 05/27/24 Range/Units 15:18 05:55 WBC 10.9 H 9.2 (4.8-10.8) X10*3/uL Hgb 16.0 D 15.4 (14.0-18.0) g/dl Hct 48.4 D 46.3 (42.0-52.0) % Plt Count 327 286 (160-400) X10*3/uL BMP 05/26/24 05/27/24 05/27/24 15:18 05:55 05:55 Sodium 138 140 Potassium 4.3 3.8 Chloride 107 107 Carbon Dioxide 21 L 27 BUN 16 11 Creatinine 0.80 0.80 0.84 Calcium 9.1 9.0 Liver Function 05/26/24 Range/Units 15:18 Total Bilirubin 0.4 (0.0-1.0) mg/dL AST 23 (5-37) U/L ALT 13 (0-40) U/L Alkaline Phosphatase 92 (39-117) U/L Albumin 3.6 (3.5-5.0) g/dL All other labs normal. Assessment and Plan (1) Cellulitis: Qualifiers: Site of cellulitis: extremity Site of cellulitis of extremity: lower extremity Laterality: right Qualified Code(s): L03.115 - Cellulitis of right lower limb Status: Acute Plan We were consulted on Zan, for concerns of cellulitis of the right BKA site. He is s/p right BKA on 02/03; we have been following him weekly. He presented to the ER with concerns of redness, slight swelling, and increased pain at the site with increased yellow/green drainage noted. He was admitted for cellulitis. XR was negative for osteo and he will be having an MRI today. We would continue with IV Abx. At this point there is no acute vascular surgical intervention. We will continue to monitor. If there are any questions or concerns, do not hesitate to reach out to us. Procedures Date of Service Date of Service: 05/27/24
[2024-05-27] MEDS: Gabapentin 300 MG CAPSULE PO ×3 (09:53→20:21)
[2024-05-27] MEDS: vancomycin HCL 1,000 MG in 0.9 % Sodium Chloride 250 ML 270 MG IV ×2 (10:23→22:34)
[2024-05-27] MEDS: Tiotropium Bromide 2.5 mcg 1 PUFF/2.5 MCG MIST.INHAL 2 PUFF INHALE (10:50)
[2024-05-27] MEDS: Fluticasone/Vilanterol 200/25 BLST.W.DEV 1 PUFF INHALE (10:50)
--- NOTE | 2024-05-27 10:55 | MHC.CM.PN ---
IMM DELIVERED PT LIVES WITH FAMILY AND HAS A WALKER/W/C FOR MOBILITY. PT ABLE TO TRANSFER SELF. PT HAS RAISED TOILET SEAT, HAND RAILS AND TRANSFER BENCH IN BR. PT IS ACTIVE WITH [facility] FOR SN. +HCP ON FILE. PCP DR. HEREDIA. DP: HOME WITH RESUMPTION OF SERVICES WITH [facility], MAY NEED LT IV ABT PENDING MRI. [facility]. SON WILL TRANSPORT HOME. CM WILL CONTINUE TO FOLLOW FOR ANY CHANGE TO DC PLAN/NEEDS.
--- NOTE | 2024-05-27 11:05 | P.PNIM_ITS ---
Subjective Subjective Date of Service: 05/27/24 Interval History: no complaints Physical Exam 2 Vital Signs: Vital Signs: Last Vital Signs Temp 97.9 F 05/27/24 07:48 Pulse 59 05/27/24 07:48 Resp 18 05/27/24 07:48 BP 145/74 H 05/27/24 07:48 Pulse Ox 97 05/27/24 07:48 O2 Del Method Room Air 05/27/24 07:48 BMI result Body Mass Index 25.1 Extrem: Other: Right BKA site: Medial wound closed and scabbing over. Mid-incision - measuring 0.5cmx0.5cm, unchanged from 05/06. Increased serous yellow drainage noted. Able to probe to the bone, appx 1cm down. No bleeding noted. Erythema noted above and below the open area, painful to palpation. Objective Data Active Medications Acetaminophen (Acetaminophen 325 Mg Tablet) 650 mg PO Q6H PRN PRN Reason: Pain, Mild 1-3,fever,headache Last Admin: 05/27/24 08:04 Dose: 650 mg Documented By: JARET Albuterol Sulfate (Albuterol Sulfate 90 Mcg 8 Gm Inhaler) 2 puff INHALE Q4H PRN PRN Reason: shortness of breath or wheezing Albuterol/Ipratropium (Albuterol/Iprat 2.5/0.5mg 3 Ml Ampul.Neb) 3 ml INHALE BID PRN PRN Reason: wheezing Aspirin (Aspirin Enteric Coated 81 Mg Tablet.) 81 mg PO DAILY [facility] Last Admin: 05/27/24 08:04 Dose: 81 mg Documented By: JARET Atorvastatin Calcium (Atorvastatin Calcium 10 Mg Tablet) 10 mg PO DAILY [facility] Last Admin: 05/27/24 08:04 Dose: 10 mg Documented By: JARET Calcium Carbonate (Calcium Carbonate 750 Mg Tab.Chew) 750 mg PO Q4H PRN PRN Reason: Heartburn Enoxaparin Sodium (Enoxaparin Sodium 40 Mg/0.4 Ml Syringe) 40 mg SUBCUT Q24H [facility] Last Admin: 05/26/24 22:41 Dose: 40 mg Documented By: LAURA Fluticasone/Vilanterol (Fluticasone/Vilanterol 200/25 Blst.W.Dev) 1 puff INHALE RDAILY [facility] Last Admin: 05/27/24 10:50 Dose: 1 puff Documented By: JARET Gabapentin (Gabapentin 300 Mg Capsule) 300 mg PO TID@1000,1700,2100 [facility] Last Admin: 05/27/24 09:53 Dose: 300 mg Documented By: JARET Vancomycin HCl 1,000 mg/ (Sodium Chloride) 270 mls @ 270 mls/hr IV Q12H [facility] Last Admin: 05/27/24 10:23 Dose: 270 mls/hr Documented By: JARET Magnesium Hydroxide (Milk Of Magnesia 30 Ml Oral.Susp) 30 ml PO DAILY PRN PRN Reason: Constipation Melatonin (Melatonin 3 Mg Tablet) 6 mg PO BEDTIME PRN PRN Reason: Insomnia Metoprolol Succinate (Metoprolol Succinate Er 25 Mg Tab.Er.24h) 25 mg PO DAILY [facility]; Protocol Last Admin: 05/27/24 08:04 Dose: 25 mg Documented By: JARET Multivitamins/Vitamin C (Multivitamin Tablet) 1 tab PO DAILY [facility] Last Admin: 05/27/24 08:04 Dose: 1 tab Documented By: JARET Omeprazole (Omeprazole 40 Mg Capsule.Dr) 40 mg PO DAILY@0630 [facility] Last Admin: 05/27/24 05:45 Dose: 40 mg Documented By: ROSAMARIA Pharmacy Consult (Consult Rx Vancomycin Dosing) 1 each MISCELLANE DAILY PRN PRN Reason: Consult order Sodium Chloride (0.9 % Sodium Chloride Flush 3 Ml Syringe) 3 ml IVFLUSH QSHIFT [facility] Last Admin: 05/27/24 08:06 Dose: 3 ml Documented By: JARET Tamsulosin HCl (Tamsulosin Hcl 0.4 Mg Capsule) 0.8 mg PO DAILY [facility] Last Admin: 05/27/24 08:03 Dose: 0.8 mg Documented By: JARET Tiotropium [place] (Tiotropium [place] 2.5 Mcg 1 Puff/2.5 Mcg Mist.Inhal) 2 puff INHALE RDAILY [facility] Last Admin: 05/27/24 10:50 Dose: 2 puff Documented By: JARET Labs 05/27/24 05:55 05/27/24 05:55 Labs: Laboratory Results - last 24 hr 05/26/24 05/26/24 05/27/24 15:18 17:08 05:55 MCV 89.1 89.6 MCH 29.5 29.8 MCHC 33.1 33.3 RDW 14.1 13.8 Plt Count 327 286 MPV 10.0 9.6 Immature Gran % (Auto) 0.4 0.4 Neut % (Auto) 70.5 65.6 Lymph % (Auto) 16.8 L 19.0 L [place] % (Auto) 9.1 11.2 H Eos % (Auto) 2.6 2.9 Baso % (Auto) 0.6 0.9 Lymph # (Auto) 1.8 1.8 [place] # (Auto) 1.0 1.0 Eos # (Auto) 0.3 0.3 Baso # (Auto) 0.1 0.1 Abs Immat Gran (auto) 0.04 H 0.04 H Absolute Neuts (auto) 7.7 6.0 Absolute Nucleated RBC 0.000 0.000 Nucleated RBC % (auto) 0.0 0.0 ESR 10 Anion Gap 14 10 L Estim Creat Clear Calc 99.6 99.6 Estimated GFR > 60 Random Glucose 94 Lactic Acid 1.4 Calcium 9.1 Total Bilirubin 0.4 AST 23 ALT 13 Alkaline Phosphatase 92 C-Reactive Protein 1.01 H Total Protein 6.5 Albumin 3.6 05/27/24 05/27/24 05:55 05:55 MCV MCH MCHC RDW Plt Count MPV Immature Gran % (Auto) Neut % (Auto) Lymph % (Auto) [place] % (Auto) Eos % (Auto) Baso % (Auto) Lymph # (Auto) [place] # (Auto) Eos # (Auto) Baso # (Auto) Abs Immat Gran (auto) Absolute Neuts (auto) Absolute Nucleated RBC Nucleated RBC % (auto) ESR Anion Gap Estim Creat Clear Calc 94.9 Estimated GFR > 60 > 60 Random Glucose 102 Lactic Acid Calcium 9.0 Total Bilirubin AST ALT Alkaline Phosphatase C-Reactive Protein Total Protein Albumin Assessment and Plan (1) Peripheral arterial disease: Status: Chronic Plan 64M PMH peripheral vascular disease status post right BKA, atrial fibrillation not on anticoagulation, BPH, GERD, COPD presented with redness at right BKA stump Right BKA stump infection Cellulitis with possibility of acute osteomyelitis Continue IV vancomycin, ID eval, MRI to rule out osteo Peripheral vascular disease Continue aspirin and statin COPD Stable bph flomax DVT prophylaxis Lovenox Full Code reason for continued hospitalization:mri pending Quality Stroke Does the patient have a stroke diagnosis?: No VTE Prior VTE?: No VTE Risk Level:: Medical - moderate - high VTE Device Contraindication: Treatment Not Indicated VTE Drug Contraindication: N/A - Med Ordered
[2024-05-27 15:53] VITALS: BP 141/73; PULSE 56; RESP 18; TEMP 36.4; O2SAT 98
[2024-05-27] MEDS: gadobutroL 10 ML VIAL IVPUSH (15:57)
[2024-05-27 19:38] VITALS: BP 140/69; PULSE 51; RESP 18; TEMP 36.2; O2SAT 98
[2024-05-27 19:47] VITALS: BP 124/72; PULSE 62; RESP 20; TEMP 36.6; O2SAT 99
[2024-05-27] MEDS: Enoxaparin Sodium 40 MG/0.4 ML SYRINGE SUBCUT (20:21)
[2024-05-27] MEDS: Morphine Sulfate 4 MG/ML CARTRIDGE IVPUSH (20:54)
[2024-05-27 21:38] LABS: Vancomycin Random 13.2 mcg/mL (15-20)
--- NOTE | 2024-05-27 22:17 | W.PM.IDCN ---
History of Present Illness Data of Consult Service Date: 05/27/24 Requesting physician: Luciano Mari Primary Care Provider: Quinton Callahan MD HPI Reason for consult: infection right stump He presents with right stump redness and yellowish drainage. He has no fever or chills now. I had seen him 09/2023 and he had leg ischemia. He presents with critical leg ischemia and had right BKA on 02/03. He has MRI OM distal osseous areas. Review of Systems Review of Systems: Yes all other systems are reviewed and are negative [facility] Past Medical History Medical History (Updated 05/27/24 @ 22:21 by Berenice Andre MD) Osteomyelitis Krish angina Left bundle branch block Bakers cyst Nicotine dependence, cigarettes, uncomplicated Arthritis BPH (benign prostatic hyperplasia) Elevated cholesterol Complex regional pain syndrome i of right lower limb S/P angiogram of extremity (07/18/23) Atrial fibrillation History of Palmer's esophagus Splenic vein thrombosis History of femoral angiogram GERD (gastroesophageal reflux disease) COPD (chronic obstructive pulmonary disease) Peripheral arterial disease Family History Family history: reviewed and not pertinent Surgical History Surgical History History of tonsillectomy Hx of oral surgery Hx of tracheostomy History of esophagogastroduodenoscopy (EGD) H/O colonoscopy Social History Social History Household Members: None Household Members Other:: Son, son girlfriend, grandbaby Housing: House Housing Other:: 3 stairs to climb Are you a primary day care attendant to a significant other at home: No Do you presently have visiting nurse or other home services: Yes Comment: Dr Knott made aware of absent pulse and sensation in right foot Patient Tobacco Use Status: Current everyday Tobacco user Tobacco use type: Cigarette Cigarette Packs Per Day: 0.5 Cigarettes Per Day: 10 Years Smoked: 50 e-Cigarette/Vaping Use: Currently Using Second Hand Smoke Exposure: No Substance Use Type: Marijuana service: No Meds Allergies Allergy/AdvReac Type Severity Reaction Status Date / Time No Known Allergies Allergy Verified 05/26/24 14:59 Active Medications: Current Medications Acetaminophen (Acetaminophen 325 Mg Tablet) 650 mg PO Q6H PRN PRN Reason: Pain, Mild 1-3,fever,headache Last Admin: 05/27/24 08:04 Dose: 650 mg Albuterol Sulfate (Albuterol Sulfate 90 Mcg 8 Gm Inhaler) 2 puff INHALE Q4H PRN PRN Reason: shortness of breath or wheezing Albuterol/Ipratropium (Albuterol/Iprat 2.5/0.5mg 3 Ml Ampul.Neb) 3 ml INHALE BID PRN PRN Reason: wheezing Aspirin (Aspirin Enteric Coated 81 Mg Tablet.) 81 mg PO DAILY [facility] Last Admin: 05/27/24 08:04 Dose: 81 mg Atorvastatin Calcium (Atorvastatin Calcium 10 Mg Tablet) 10 mg PO DAILY [facility] Last Admin: 05/27/24 08:04 Dose: 10 mg Calcium Carbonate (Calcium Carbonate 750 Mg Tab.Chew) 750 mg PO Q4H PRN PRN Reason: Heartburn Enoxaparin Sodium (Enoxaparin Sodium 40 Mg/0.4 Ml Syringe) 40 mg SUBCUT Q24H [facility] Last Admin: 05/27/24 20:21 Dose: 40 mg Fluticasone/Vilanterol (Fluticasone/Vilanterol 200/25 Blst.W.Dev) 1 puff INHALE RDAILY [facility] Last Admin: 05/27/24 10:50 Dose: 1 puff Gabapentin (Gabapentin 300 Mg Capsule) 300 mg PO TID@1000,1700,2100 [facility] Last Admin: 05/27/24 20:21 Dose: 300 mg Vancomycin HCl 1,000 mg/ (Sodium Chloride) 270 mls @ 270 mls/hr IV Q12H [facility] Last Infusion: 05/27/24 11:23 Dose: Infused Magnesium Hydroxide (Milk Of Magnesia 30 Ml Oral.Susp) 30 ml PO DAILY PRN PRN Reason: Constipation Melatonin (Melatonin 3 Mg Tablet) 6 mg PO BEDTIME PRN PRN Reason: Insomnia Metoprolol Succinate (Metoprolol Succinate Er 25 Mg Tab.Er.24h) 25 mg PO DAILY [facility]; Protocol Last Admin: 05/27/24 08:04 Dose: 25 mg Multivitamins/Vitamin C (Multivitamin Tablet) 1 tab PO DAILY [facility] Last Admin: 05/27/24 08:04 Dose: 1 tab Omeprazole (Omeprazole 40 Mg Capsule.) 40 mg PO DAILY@0630 [facility] Last Admin: 05/27/24 05:45 Dose: 40 mg Pharmacy Consult (Consult Rx Vancomycin Dosing) 1 each MISCELLANE DAILY PRN PRN Reason: Consult order Sodium Chloride (0.9 % Sodium Chloride Flush 3 Ml Syringe) 3 ml IVFLUSH QSHIFT [facility] Last Admin: 05/27/24 15:17 Dose: 3 ml Tamsulosin HCl (Tamsulosin Hcl 0.4 Mg Capsule) 0.8 mg PO DAILY [facility] Last Admin: 05/27/24 08:03 Dose: 0.8 mg Tiotropium Tyler (Tiotropium Tyler 2.5 Mcg 1 Puff/2.5 Mcg Mist.Inhal) 2 puff INHALE RDAILY [facility] Last Admin: 05/27/24 10:50 Dose: 2 puff Home Medications ?Medication ?Instructions ?Recorded ?Confirmed ?Last Taken ?Type aspirin 81 mg tablet,delayed 81 mg PO DAILY 01/12/20 05/26/24 05/26/24 History release (Luis Low Dose Aspirin) pantoprazole 40 mg tablet,delayed 80 mg PO DAILY@0630 01/12/20 05/26/24 05/26/24 History release tamsulosin 0.4 mg capsule 0.8 mg PO DAILY 01/12/20 05/26/24 05/26/24 History atorvastatin 10 mg tablet 10 mg PO DAILY 05/04/20 05/26/24 05/26/24 History fxtppebv-ts-pgjlt 300 mcg-K 60 1 tab PO DAILY 10/02/23 05/26/24 05/26/24 History mcg-lycop 600 mcg-lutein 300 mcg tablet (Centrum Silver Men) metoprolol succinate 25 mg 25 mg PO DAILY 12/17/23 05/26/24 05/26/24 History tablet,extended release 24 hr albuterol sulfate 90 mcg/actuation 2 puff inhalation Q4H PRN 01/07/24 05/26/24 Unknown History aerosol inhaler shortness of breath or wheezing umeclidinium 62.5 mcg/actuation 1 inh inhalation DAILY 01/07/24 05/26/24 05/26/24 History blister powder for inhalation (Incruse Ellipta) fluticasone 500 mcg-salmeterol 50 1 inh inhalation BID 05/26/24 05/26/24 05/26/24 History mcg/dose blistr powdr for inhalation (Wixela Inhub) gabapentin 300 mg capsule 300 mg PO TID@1000,1700,2100 05/26/24 05/26/24 05/26/24 History ibuprofen 200 mg tablet 600 mg PO TID@1000,1700,2100 05/26/24 05/26/24 05/26/24 History Physical Exam Vital Signs: Vital Signs: Last Vital Signs Temp 97.8 F 05/27/24 19:47 Pulse 62 05/27/24 19:47 Resp 20 05/27/24 19:47 BP 124/72 05/27/24 19:47 Pulse Ox 99 05/27/24 19:47 O2 Del Method Room Air 05/27/24 19:47 BMI result Body Mass Index 25.1 Const: General: cooperative HEENT: Head: Yes normal to inspection Face and sinus: Yes normal facial exam Mouth: Normal oral and palatal mucosa present Teeth and gingiva: dentition normal Eyes: General: appearance normal, both eyes and all related structures Pupils: Equal, round and reactive pupils present Resp: Effort & Inspection: normal respiratory effort Cardio: Rate: regular rate Rhythm: regular rhythm GI: Palpation (GI): Soft to palpation and nontender : General: Yes no CVA tenderness Back/Spine/Pelvis: Back: no CVA tenderness Skin: General skin exam: no rashes or lesions noted Neuro: General: moves all extremities Cranial nerves: Yes Equal, round and reactive pupils present Extrem: Other: right yellow drainage from right BKA site General: Yes normal to inspection Psych: Appearance: grossly normal Results Labs 05/27/24 05:55 05/27/24 05:55 Labs: Short CBC 05/27/24 Range/Units 05:55 WBC 9.2 (4.8-10.8) X10*3/uL Hgb 15.4 (14.0-18.0) g/dl Hct 46.3 (42.0-52.0) % Plt Count 286 (160-400) X10*3/uL BMP 05/27/24 05/27/24 05:55 05:55 Sodium 140 Potassium 3.8 Chloride 107 Carbon Dioxide 27 BUN 11 Creatinine 0.80 0.84 Calcium 9.0 Microbiology Microbiology Results: Microbiology 05/26/24 17:08 Blood - Venous Blood Culture - Preliminary No growth after 24 hours. 05/26/24 15:18 Blood - Venous Blood Culture - Preliminary No growth after 24 hours. Assessment and Plan (1) Osteomyelitis: Status: Acute Plan He has MRI c/w OM at site of right BKA. There is no organism Probably IV Ertapenem for six weeks with weekly CBC and creatinine.
[2024-05-27 23:53] VITALS: BP 136/71; PULSE 53; RESP 18; TEMP 36.7; O2SAT 96
[2024-05-28] MEDS: Omeprazole 40 MG CAPSULE.DR PO (05:31)
[2024-05-28 06:43] LABS: Creatinine Clr Calc Pharmacy 98.4; Estimated Glomerular Filt Rate > 60
[2024-05-28 07:05] VITALS: BP 131/71; PULSE 78; RESP 16; TEMP 36.1; O2SAT 98
[2024-05-28] MEDS: Tamsulosin HCL 0.4 MG CAPSULE 0.8 MG PO (07:41)
[2024-05-28] MEDS: Atorvastatin Calcium 10 MG TABLET PO (07:42)
[2024-05-28] MEDS: Metoprolol Succinate ER 25 MG TAB.ER.24H PO (07:42)
[2024-05-28] MEDS: Acetaminophen 325 MG TABLET 650 MG PO ×3 (07:42→23:27)
[2024-05-28] MEDS: Multivitamin TABLET 1 TAB PO (07:42)
[2024-05-28] MEDS: Aspirin Enteric Coated 81 MG TABLET.DR PO (07:42)
[2024-05-28] MEDS: 0.9 % Sodium Chloride Flush 3 ML SYRINGE IVFLUSH ×3 (07:44→20:25)
[2024-05-28 07:49] VITALS: BP 144/69; PULSE 58; RESP 18; TEMP 36.6; O2SAT 97
[2024-05-28] MEDS: Fluticasone/Vilanterol 200/25 BLST.W.DEV 1 PUFF INHALE (08:03)
[2024-05-28] MEDS: Tiotropium Bromide 2.5 mcg 1 PUFF/2.5 MCG MIST.INHAL 2 PUFF INHALE (08:03)
[2024-05-28 08:05] VITALS: PULSE 58; RESP 18; O2SAT 95
--- NOTE | 2024-05-28 09:16 | P.PNIM_ITS ---
Subjective Subjective Date of Service: 05/28/24 Interval History: no complaints Physical Exam 2 Vital Signs: Vital Signs: Last Vital Signs Temp 97.8 F 05/28/24 07:49 Pulse 58 05/28/24 08:05 Resp 18 05/28/24 08:05 BP 144/69 H 05/28/24 07:49 Pulse Ox 97 05/28/24 07:49 O2 Del Method Room Air 05/28/24 07:49 BMI result Body Mass Index 25.1 Const: General: cooperative HEENT: Head: Yes normal to inspection Face and sinus: Yes normal facial exam Mouth: Normal oral and palatal mucosa present Teeth and gingiva: d entition normal Eyes: General: appearance normal, both eyes and all related structures P upils: Equal, round and reactive pupils present Resp: Effort & Inspection: normal respiratory effort Cardio: Rate: regular rate Rhythm: regular rhythm GI: Palpation (GI): Soft to palpation and nontender : General: Yes no CVA tenderness Back/Spine/Pelvis: Back: no CVA tenderness Skin: General skin exam: no rashes or lesions noted Neuro: General: moves all extremities Cranial nerves: Yes Equal, round and reactive pupils present Extrem: Other: right yellow drainage from right BKA site General: Yes normal to inspection Psych: Appearance: grossly normal Objective Data Active Medications Acetaminophen (Acetaminophen 325 Mg Tablet) 650 mg PO Q6H PRN PRN Reason: Pain, Mild 1-3,fever,headache Last Admin: 05/28/24 07:42 Dose: 650 mg Documented By: JARET Albuterol Sulfate (Albuterol Sulfate 90 Mcg 8 Gm Inhaler) 2 puff INHALE Q4H PRN PRN Reason: shortness of breath or wheezing Albuterol/Ipratropium (Albuterol/Iprat 2.5/0.5mg 3 Ml Ampul.Neb) 3 ml INHALE BID PRN PRN Reason: wheezing Aspirin (Aspirin Enteric Coated 81 Mg Tablet.) 81 mg PO DAILY [facility] Last Admin: 05/28/24 07:42 Dose: 81 mg Documented By: JARET Atorvastatin Calcium (Atorvastatin Calcium 10 Mg Tablet) 10 mg PO DAILY [facility] Last Admin: 05/28/24 07:42 Dose: 10 mg Documented By: JARET Calcium Carbonate (Calcium Carbonate 750 Mg Tab.Chew) 750 mg PO Q4H PRN PRN Reason: Heartburn Enoxaparin Sodium (Enoxaparin Sodium 40 Mg/0.4 Ml Syringe) 40 mg SUBCUT Q24H [facility] Last Admin: 05/27/24 20:21 Dose: 40 mg Documented By: RACQUEL Fluticasone/Vilanterol (Fluticasone/Vilanterol 200/25 Blst.W.Dev) 1 puff INHALE RDAILY [facility] Last Admin: 05/28/24 08:03 Dose: 1 puff Documented By: JERILYN Gabapentin (Gabapentin 300 Mg Capsule) 300 mg PO TID@1000,1700,2100 [facility] Last Admin: 05/27/24 20:21 Dose: 300 mg Documented By: RACQUEL Vancomycin HCl 1,000 mg/ (Sodium Chloride) 270 mls @ 270 mls/hr IV Q12H [facility] Last Infusion: 05/27/24 23:35 Dose: Infused Documented By: RACQUEL Magnesium Hydroxide (Milk Of Magnesia 30 Ml Oral.Susp) 30 ml PO DAILY PRN PRN Reason: Constipation Melatonin (Melatonin 3 Mg Tablet) 6 mg PO BEDTIME PRN PRN Reason: Insomnia Metoprolol Succinate (Metoprolol Succinate Er 25 Mg Tab.Er.24h) 25 mg PO DAILY [facility]; Protocol Last Admin: 05/28/24 07:42 Dose: 25 mg Documented By: JARET Multivitamins/Vitamin C (Multivitamin Tablet) 1 tab PO DAILY [facility] Last Admin: 05/28/24 07:42 Dose: 1 tab Documented By: JARET Omeprazole (Omeprazole 40 Mg Capsule.) 40 mg PO DAILY@0630 [facility] Last Admin: 05/28/24 05:31 Dose: 40 mg Documented By: RACQUEL Pharmacy Consult (Consult Rx Vancomycin Dosing) 1 each MISCELLANE DAILY PRN PRN Reason: Consult order Sodium Chloride (0.9 % Sodium Chloride Flush 3 Ml Syringe) 3 ml IVFLUSH QSHIFT [facility] Last Admin: 05/28/24 07:44 Dose: 3 ml Documented By: JARET Tamsulosin HCl (Tamsulosin Hcl 0.4 Mg Capsule) 0.8 mg PO DAILY [facility] Last Admin: 05/28/24 07:41 Dose: 0.8 mg Documented By: JARET Tiotropium [place] (Tiotropium [place] 2.5 Mcg 1 Puff/2.5 Mcg Mist.Inhal) 2 puff INHALE RDAILY [facility] Last Admin: 05/28/24 08:03 Dose: 2 puff Documented By: JERILYN Labs 05/27/24 05:55 05/28/24 06:15 Labs: Laboratory Results - last 24 hr 05/27/24 05/28/24 21:01 06:15 Estim Creat Clear Calc 98.4 Estimated GFR > 60 Random Vancomycin 13.2 L Microbiology Microbiology Results: Microbiology 05/26/24 17:08 Blood Culture - Preliminary Blood - Venous No growth after 24 hours. 05/26/24 15:18 Blood Culture - Preliminary Blood - Venous No growth after 24 hours. Assessment and Plan (1) Peripheral arterial disease: Status: Chronic Plan 64M PMH peripheral vascular disease status post right BKA, atrial fibrillation not on anticoagulation, BPH, GERD, COPD presented with redness at right BKA stump Right BKA stump infection Cellulitis and acute osteomyelitis (mri positive) Continue IV vancomycin for now, ID appreciated, plan for 6 weeks iv ertapenem - weekly labs including cpk, end july 07, 2024 picc line after 48hr negative culture, patient to administer abx at home Peripheral vascular disease Continue aspirin and statin COPD Stable bph flomax DVT prophylaxis Lovenox Full Code reason for continued hospitalization: needs picc and home iv abx set up Quality Stroke Does the patient have a stroke diagnosis?: No VTE Prior VTE?: No VTE Risk Level:: Medical - moderate - high VTE Device Contraindication: Treatment Not Indicated VTE Drug Contraindication: N/A - Med Ordered
--- NOTE | 2024-05-28 11:10 | P.PNVS_ITS ---
Subjective Subjective Date of Service: 05/28/24 Interval history: Zan is doing well this morning. He is OOB in the chair. He is eating, drinking, and sleeping well. He continues to endorse pain at the BKA site. Physical Exam Vital Signs: Vital Signs: Last Vital Signs Temp 97.8 F 05/28/24 07:49 Pulse 58 05/28/24 08:05 Resp 18 05/28/24 08:05 BP 144/69 H 05/28/24 07:49 Pulse Ox 97 05/28/24 07:49 O2 Del Method Room Air 05/28/24 07:49 BMI result Body Mass Index 25.1 Const: General: comfortable and no acute distress Orientation/consciousness: patient oriented x3 HEENT: Ears: hearing grossly normal bilaterally Resp: Effort & Inspection: normal respiratory effort and able to speak in complete sentences Auscultation: clear to auscultation bilaterally Cardio: Rate: regular rate Rhythm: regular rhythm Heart sounds: S1 normal heart sound present and S2 normal heart sound present Bruits: no abdominal aortic bruits, no carotid bruits, no femoral bruits and no renal bruits GI: Palpation (GI): No Abdominal aortic bruit present Neuro: General: patient oriented x3 Cranial nerves: Yes CN's II-XII intact bilaterally Extrem: Other: Right BKA site: Medial wound closed and scabbing over. Mid-incision - measuring 0.5cmx0.5cm, unchanged from 05/06, depth is 0.8cm, to the bone. Increased serous yellow drainage noted. No bleeding noted. Slight erythema noted above and below the open area, painful to palpation, decreased from yesterday. Progress Note: A&P Assessment and plan (1) Osteomyelitis: Status: Acute Assessment and Plan: Zan is s/p right BKA, performed on 02/03, who presented to the ER the other day for concerns of osteo/cellulitis. He continues to endorse increased pain to the BKA site with drainage from the open area in the mid-incision. MRI was noteable for osteo of the distal osseous stump with bony significant changes/enhancement involving the entire distal osteotomy site and extending 2.8cm cephaled; there is also soft tissue infection in the distal bony osteotomy site into the ventral soft tissues at the margin of flap repair. ID was c onsulted, whom recommended 6w of IV Ertapenem with weekly Cr and CBC checks. There is no growth in blood cultures. The pt will be going for a PICC line. We recommend a dry protective dressing, to be changed daily; we will be using Allevyn while inpatient, which can be changed every other day, depending on drainage. We will continue to monitor. If there are any questions or concerns, please do not hesitate to reach out to us. Time Spent With Patient Time: Total time managing care of this patient today ____ minutes. Procedures Date of Service Date of Service: 05/28/24 Quality Stroke Does the patient have a stroke diagnosis?: No VTE Prior VTE?: No VTE Risk Level:: Medical - moderate - high VTE Device Contraindication: Treatment Not Indicated VTE Drug Contraindication: N/A - Med Ordered
[2024-05-28] MEDS: vancomycin HCL 1,000 MG in 0.9 % Sodium Chloride 250 ML 270 MG IV ×2 (11:17→22:21)
[2024-05-28] MEDS: Gabapentin 300 MG CAPSULE PO ×3 (11:17→20:10)
--- NOTE | 2024-05-28 12:02 | MHC.CM.PN ---
Patient will need 6 wks IV Ertapenem on dc. Discussed w/ patient and son, Devendra. Devendra will assist. [facility] RN scheduled teach for tomorrow @0800 w/ son and patient. Anticipate dc tomorrow pending PICC placement. [facility] updated.
--- NOTE | 2024-05-28 14:53 | HO.WOUND ---
Wound consult: Initial 64yr old Male admitted to [facility] 05/26/24 see H&P for detailed history. Wound consult placed for Right residual leg wound. Chart review completed - seen by vascular service. Foam dressing removed and wound bed assessed. Per patient he reports Dr. Knott was by recently and would prefer topical recommendations to be made by Vascular Surgery team at this time. TT to Dr. Knott and Sera OSORIO for vascular service and observations noted and photo sent for review - Sera OSORIO reports they will make topical recommendations for the right residual leg wound. Defer to Vascular Surgery topical orders. Inpatient wound care nurse will not make topical recommendations at this time.
[2024-05-28 15:09] VITALS: BP 134/76; PULSE 60; RESP 18; TEMP 36.6; O2SAT 98
[2024-05-28] MEDS: Morphine Sulfate 4 MG/ML CARTRIDGE IVPUSH (20:23)
[2024-05-28 21:29] LABS: Vancomycin Random 13.4 mcg/mL (15-20)
--- NOTE | 2024-05-28 21:45 | HE.PHANOTE ---
Re: Radhao Stable renal function. Trough returned at 13.4, pt is therapeutic. Continue current dose of 1000 q12h, with predicted AUC 447, predicted trough of 13.4. Next trough 05/30 @ 0900.
[2024-05-28] MEDS: Enoxaparin Sodium 40 MG/0.4 ML SYRINGE SUBCUT (22:11)
[2024-05-28] MEDS: Melatonin 3 MG TABLET 6 MG PO (23:27)
[2024-05-28 23:37] VITALS: BP 121/71; PULSE 54; RESP 16; TEMP 36.3; O2SAT 94
[2024-05-29] MEDS: Acetaminophen 325 MG TABLET 650 MG PO (06:01)
[2024-05-29] MEDS: Omeprazole 40 MG CAPSULE.DR PO (06:01)
[2024-05-29 06:26] LABS: Creatinine Clr Calc Pharmacy 100.9; Estimated Glomerular Filt Rate > 60
[2024-05-29 07:09] VITALS: BP 148/72; PULSE 52; RESP 14; TEMP 37.2; O2SAT 97
[2024-05-29] MEDS: Metoprolol Succinate ER 25 MG TAB.ER.24H PO (07:47)
[2024-05-29] MEDS: Aspirin Enteric Coated 81 MG TABLET.DR PO (07:47)
[2024-05-29] MEDS: Atorvastatin Calcium 10 MG TABLET PO (07:47)
[2024-05-29] MEDS: Tamsulosin HCL 0.4 MG CAPSULE 0.8 MG PO (07:47)
[2024-05-29] MEDS: Multivitamin TABLET 1 TAB PO (07:47)
[2024-05-29] MEDS: 0.9 % Sodium Chloride Flush 3 ML SYRINGE IVFLUSH (07:49)
[2024-05-29] MEDS: Tiotropium Bromide 2.5 mcg 1 PUFF/2.5 MCG MIST.INHAL 2 PUFF INHALE (08:12)
[2024-05-29] MEDS: Fluticasone/Vilanterol 200/25 BLST.W.DEV 1 PUFF INHALE (08:12)
[2024-05-29 08:16] VITALS: PULSE 53; RESP 16; O2SAT 99
--- NOTE | 2024-05-29 09:56 | HO.VASCPN ---
Subjective Subjective Date of Service: 05/29/24 Interval history: Zan is doing well this morning, he is OOB to the chair. He has been eating, drinking, and sleeping well. He states the pain is better in his BKA site. He has no new concerns this morning. Physical Exam Vital Signs: Vital Signs: Last Vital Signs Temp 98.9 F 05/29/24 07:09 Pulse 53 05/29/24 08:16 Resp 16 05/29/24 08:16 BP 148/72 H 05/29/24 07:09 Pulse Ox 97 05/29/24 07:09 O2 Del Method Room Air 05/29/24 07:09 BMI result Body Mass Index 25.1 Const: General: comfortable and no acute distress Orientation/consciousness: patient oriented x3 HEENT: Ears: hearing grossly normal bilaterally Resp: Effort & Inspection: normal respiratory effort and able to speak in complete sentences Auscultation: clear to auscultation bilaterally Cardio: Rate: regular rate Rhythm: regular rhythm Heart sounds: S1 normal heart sound present and S2 normal heart sound present Bruits: no abdominal aortic bruits, no carotid bruits, no femoral bruits and no renal bruits GI: Palpation (GI): No Abdominal aortic bruit present Neuro: General: patient oriented x3 Cranial nerves: Yes CN's II-XII intact bilaterally Extrem: Other: Right BKA site: dressing not taken down this morning; nursing states they took it down this morning due to the bandage being saturated. Progress Note: A&P Assessment and plan (1) Osteomyelitis: Status: Acute Assessment and Plan: Zan remains stable from a vascular standpoint. He will be continuing with IV Abx, Vanco, for 6w, ending on 07/07/24. He will be getting a PICC line placed today and possibly discharged home later. We recommend continuing with a dry protective dressing, we are using Allevyn in the hospital, to be changed every other day or daily, if there is increased drainage. We will have him follow up with us outpatient in 2 weeks. If there are any questions or concerns, please do not hesitate to reach out to us. Time Spent With Patient Time: Total time managing care of this patient today ____ minutes. Procedures Date of Service Date of Service: 05/29/24 Quality Stroke Does the patient have a stroke diagnosis?: No VTE Prior VTE?: No VTE Risk Level:: Medical - moderate - high VTE Device Contraindication: Treatment Not Indicated VTE Drug Contraindication: N/A - Med Ordered
--- NOTE | 2024-05-29 11:07 | HO.PICC ---
PICC Line Insertion NPICC Diagnosis: Osteomyelitis right BKA Indication: termite helper antibiotics Pertinent Labs: Reviewed Technique: Following informed consent including risks, benefits and alternatives and using sterile technique including cap and mask, sterile gown, glove and drape, the right arm was prepped and draped in the usual sterile fashion of full barrier technique with CHG. Following completion of [place] Protocol the skin and soft tissues were anesthetized with 1% Lidocaine plain. Using ultrasound guidance, the right brachial vein access was obtained in a single attempt by this RN. Over an 0.018 wire through peel-away sheath, a a 4 [place] single lumen PASV PICC line was positioned. Catheter length is 43cm internal length, the external length is at the 0cm external berry, for a total trimmed length of 43cm. The procedure was performed in S272. Tip verification was performed by Sourav Post with Sherlock 3CG. Tip located in SVC. Ultrasound was used to document vein patency and for needle entry. A formal ultrasound picture and cardiac rhythm strip was recorded. Vascular Content Assistant has released the line for use and it is currently dressed with a StatLock, Tegaderm, and CHG disc. Verification has been performed for blood return and line patency. Arm Circumference: 33 cm Equipment: Anne Fogarty PowerPICC SOLO Catheter with Sherlock 3CG Tip Catheter Type: 4 [place] single lumen PASV PICC Lot #: [id number]
[2024-05-29] MEDS: Gabapentin 300 MG CAPSULE PO (11:24)
[2024-05-29] MEDS: vancomycin HCL 1,000 MG in 0.9 % Sodium Chloride 250 ML 270 MG IV (11:24)
--- NOTE | 2024-05-29 12:00 | W.MHC.F2F ---
Service Date Service Date: 05/29/24 Encounter Date of encounter: 05/29/24 Reasons for Services Signs and symptoms assessed: wound physical deconditioning Reason for residential: wound care (dry protective dressing Q2 Days, teach patient for daily ) and teach disease management Reason for physical therapy: home safety and mobility and therapeutic exercises Homebound: Leaving the home is medically contraindicated at this time without the asist of a device and/or another person due th the listed conditions above and below. Reason homebound: unsteady gait / fall risk and unable to drive Certification: Based on the above findings, I certify that this patient is confined to the home and needs intermittent residential care, physical therapy and/or speech therapy, or continues to need occupational therapy. The patient is under my care, and I have initiated the establishment of the plan of care. The patient will be followed by a physician who will periodically review the plan of care. Time Spent With Patient Time: Total time managing care of this patient today ____ minutes.
--- NOTE | 2024-05-29 12:01 | P.DS_ITS ---
DS: Providers Provider Date of Service: 05/29/24 Date of admission: 05/26/24 21:58 Date of discharge: 05/29/24 Primary care physician: Quinton Callahan MD Consults: 05/27/24 02:25 Consult to Wound Care Routine Reason for consultation: RBKA infection, ?cellulitis 05/27/24 07:26 Consult to Vascular Surgery [place]ine [place] [facility] Reason for consultation: right bka celluliutis 05/27/24 11:05 Consult to Infectious Diseases Routine Consulting Provider[place] [facility] [place] [facility] Reason for consultation: ?om DS: Diagnosis Discharge Diagnosis (1) Osteomyelitis: Status: Acute (2) Cellulitis: Status: Acute DS: Summary Hospital Course Hospital Course: Admission note HPI This is a 64-year-old male with pertinent history of PAD status post right BKA, atrial fibrillation not on anticoagulation, BPH, gastroesophageal reflux disease, COPD not on home oxygen who presents to the emergency department for evaluation of worsening redness and pain over right BKA stump. Patient underwent right BKA on 02/04/2024. He is followed by vascular surgery who he last saw on 05/20/24. Patient states that over the last 1 week he has noticed increased pain and redness over the right BKA stump. Also noticed purulent foul-smelling drainage that has increased over the last 1 week. Admits chills but no documented temperature. No nausea, vomiting, chest pain, palpitations, shortness of breath, abdominal pain, changes in urinary or bowel habits. In the emergency department, imaging with soft edema of the distal stump. Patient was given IV vancomycin and IV Zosyn Hospital course The patient was admitted for treatment of Right BKA stump infection with Cellulitis and acute osteomyelitis as shown in MRI images. Treated with IV vancomycin as ID evaluated the patient and recommended plan for 6 weeks iv ertapenem but patient unable to afford it so plan to go home on Vancomycin 1 gm Q12 hours with plan to end by July 07, 2024. PICC line placed as negative culture after 48 hours. [facility] will follow at home to administer antibiotics and arrange wound care. For Peripheral vascular disease, Continue aspirin and statin and follow with vascular as outpatient Discharge plan dry protective dressing Vancomycin For 39 more days Vascular surgery follow up Time Attestation Discharge Coordination Time (in mins): 41 Quality: Safe Use of Opioids Does Pt have an Active Cancer Diagnosis on the Problem List?: No Quality: Stroke Does the patient have a stroke diagnosis?: No Physical Exam Vital Signs: Vital Signs: Last Vital Signs Temp 98.9 F 05/29/24 07:09 Pulse 53 05/29/24 08:16 Resp 16 05/29/24 08:16 BP 148/72 H 05/29/24 07:09 Pulse Ox 97 05/29/24 07:09 O2 Del Method Room Air 05/29/24 07:09 BMI result Body Mass Index 25.1 Const: Other: Constitutional : Awake, interactive, not in distress Neck : Normal inspection, Supple Cardiovascular : RRR, no JVP, no lower extremity edema Respiratory : good bilateral air entry, no crackles, wheezes or rhonchi Gastrointestinal: soft, lax, Normal bowel sounds, Non tender Skin : Warm, Dry Extremities: RLE above knee amputation site wound covered with dry dressing, no erythema or drainage Neurological : Alert & oriented x3, No focal deficit DS: Data Data Completed and Pending Completed studies during hospitalization [Text1]: Procedures Bypass Right Femoral Artery to Popliteal Artery with Autologous Venous Tissue, Open Approach (08/13/23) Detachment at Right Lower Leg, Mid, Open Approach (02/04/24) Excision of Right Saphenous Vein, Open Approach (08/13/23) Introduction of Other Thrombolytic into Peripheral Artery, Percutaneous Approach (01/07/24) Introduction of Vasopressor into Peripheral Vein, Percutaneous Approach (01/07/24) Transfusion of Nonautologous Frozen Plasma into Peripheral Vein, Percutaneous Approach (01/07/24) Transfusion of Nonautologous Platelets into Peripheral Vein, Percutaneous Approach (01/07/24) Transfusion of Nonautologous Red Blood Cells into Peripheral Vein, Percutaneous Approach (01/07/24) Labs on day of discharge: Laboratory Results - last 24 hr 05/28/24 05/29/24 21:06 05:09 Hold Purple Top SEE NOTE Creatinine 0.79 Estim Creat Clear Calc 100.9 Estimated GFR > 60 Random Vancomycin 13.4 L Preliminary micro results at discharge 05/26/24 17:08 Blood Culture - Preliminary Blood - Venous No growth after 48 hours. 05/26/24 15:18 Blood Culture - Preliminary Blood - Venous No growth after 48 hours. Imaging Chest x-ray: Radiologist's impression: ITS Impressions Knee X-Ray 05/26/24 14:52 IMPRESSION: 1. Below the knee amputation without radiographic changes of osteomyelitis evident. 2. Osteopenia. 3. Stent in the SFA. 4. Soft edema of the distal stump. Electronically signed by: Alvarado Cortes MD 05/26/2024 03:32 PM EDT RP Knee MRI 05/27/24 15:27 IMPRESSION: 1. Findings consistent with osteomyelitis of the distal osseous stump, with bony signal changes/enhancement involving the entire distal osteotomy site and extending approximately 2.8 cm cephalad. 2. There is a tract of enhancement and edema/fluid extending from the distal bony osteotomy site, into the ventral soft tissues at the margin of the flap repair, likely a self decompressing soft tissue infection. 3. No additional drainable abscess or fluid collection. 4. Diffuse subcutaneous edema. Electronically signed by: Alvarado Cortes MD 05/27/2024 04:26 PM EDT RP Discharge Plan Discharge Anticipated Discharge Date/Time: 05/29/24 11:57 Patient Disposition: Home Health Service Discharge Diagnosis: Osteomyelitis Referrals: Quinton Callahan MD [Primary Care Provider] - 1 Week Discharge Medications: New vancomycin 1,000 mg recon soln 1 g IV Q12H 39 Days Qty: 78 0RF Continued aspirin [Luis Low Dose Aspirin] 81 mg Tablet,Delayed Release (Dr/Ec) 81 mg PO DAILY tamsulosin 0.4 mg Capsule 0.8 mg PO DAILY pantoprazole 40 mg Tablet,Delayed Release (Dr/Ec) 80 mg PO DAILY@0630 Centrum Silver Men [id number] mcg Tablet 1 tab PO DAILY albuterol sulfate 90 mcg/actuation HFA aerosol inhaler 2 puff inhalation Q4H PRN (Reason: shortness of breath or wheezing) Incruse Ellipta 62.5 mcg/actuation blister with device 1 inh INHALATION DAILY ibuprofen 200 mg Tablet 600 mg PO TID@1000,1700,2100 Rx Instructions: takes with gabapentin fluticasone propion-salmeterol [Wixela Inhub] 500-50 mcg/dose blister with device 1 inh inhalation BID gabapentin 300 mg capsule 300 mg PO TID@1000,1700,2100 atorvastatin 10 mg tablet 10 mg PO DAILY ipratropium-albuterol 0.5 mg-3 mg(2.5 mg base)/3 mL solution for nebulization 3 ml inhalation BID PRN (Reason: wheezing) Qty: 180 0RF metoprolol succinate 25 mg tablet extended release 24 hr 25 mg PO DAILY Discharge Orders: Discharge Order (Routine); Ordered 05/29/24 Ordered By: Lorena Shrestha Diet: Advance to usual diet Activity on Discharge: As tolerated Stand Alone Forms: Patient Portal Discharge page Print Language: Sen[place]alese Activity Restrictions/Additional Instructions: Wound care: dry protective dressing, to be changed daily. Follow up with Dr Knott's office in 2 weeks, call [phone] for an appointment. Care Plan Goals: Iv Vancomycin 1 gm Every 12 hours Wound care Follow with dr Knott in 2 weeks in office Health Concerns: Osteomyelitis Plan of Treatment: Antibiotics Wound care Assessment: as above
--- NOTE | 2024-05-29 12:40 | MHC.CM.PN ---
Patient medically cleared for dc home w/ [facility] for IV Vanco. [facility] RN provided teach at bedside w/ patient and son. Both feel comfortable w/ plan. Son will transport.
[2024-05-29 12:54] VITALS: BP 142/61; PULSE 52; RESP 16; TEMP 36.3; O2SAT 98
== END 2024-05-29 13:38 | disposition home health service (06) | DRG 565 ==
LOC: HO.ED 21:01 → HO.EDOVER 22:05 → HO.S3 05-27 01:18
PROVIDERS: Physician Assistant; Admitting Provider Student in an Organized Health Care Education/Training Program; Emergency Provider Emergency Medicine; PCP Internal Medicine Medical Oncology; Visit Provider Student in an Organized Health Care Education/Training Program
DX: T87.43 Infection of amputation stump, right lower extremity (principal); L03.115 Cellulitis of right lower limb; M86.18 Other acute osteomyelitis, other site; F17.210 Nicotine dependence, cigarettes, uncomplicated; N40.0 Benign prostatic hyperplasia without lower urinary tract symptoms; K21.9 Gastro-esophageal reflux disease without esophagitis; J44.9 Chronic obstructive pulmonary disease, unspecified; Z71.6 Tobacco abuse counseling; Z87.891 Personal history of nicotine dependence; Z79.51 Long term (current) use of inhaled steroids; Z79.82 Long term (current) use of aspirin; Z79.899 Other long term (current) drug therapy
CPT/HCPCS: 36415; 36573; 73564; 73723; 80048; 80053; 80202; 82565; 83605; 85025; 85652; 86140; 87040; 94664; 99285; A9585; C1751; J1650; J2270; J2543; J3370

== ENCOUNTER → 2024-05-26 14:52 | Outpatient (BNV) | payer MEDICARE, SELFPAY | PROVIDERS: PCP Internal Medicine Medical Oncology; Visit Provider Radiology Diagnostic Radiology | DX: M85.861 Other specified disorders of bone density and structure, right lower leg (principal); R60.0 Localized edema | CPT/HCPCS: 73564 ==

== ENCOUNTER 2024-05-26 21:58 | Outpatient (BNV) | payer MEDICARE, SELFPAY | END 2024-05-27 15:27 | PROVIDERS: Admitting Provider Student in an Organized Health Care Education/Training Program; Emergency Provider Emergency Medicine; PCP Internal Medicine Medical Oncology; Visit Provider Radiology Diagnostic Radiology | DX: R60.0 Localized edema (principal) | CPT/HCPCS: 73723 ==

== ENCOUNTER → 2024-05-26 21:58 | Outpatient (BNV) | payer MEDICARE, SELFPAY | PROVIDERS: Admitting Provider Student in an Organized Health Care Education/Training Program; Emergency Provider Emergency Medicine; PCP Internal Medicine Medical Oncology; Visit Provider Internal Medicine | DX: M86.9 Osteomyelitis, unspecified (principal) | CPT/HCPCS: 99222 ==

== ENCOUNTER → 2024-05-26 21:58 | Outpatient (BNV) | payer MEDICARE, SELFPAY | PROVIDERS: Admitting Provider Student in an Organized Health Care Education/Training Program; Emergency Provider Emergency Medicine; PCP Internal Medicine Medical Oncology; Visit Provider Physician Assistant Surgical | DX: M86.9 Osteomyelitis, unspecified (principal) | CPT/HCPCS: 99222; 99232 ==

== ENCOUNTER → 2024-05-26 21:58 | Outpatient (BNV) | payer MEDICARE, SELFPAY | PROVIDERS: Admitting Provider Student in an Organized Health Care Education/Training Program; Emergency Provider Emergency Medicine; PCP Internal Medicine Medical Oncology; Visit Provider Student in an Organized Health Care Education/Training Program | DX: L03.115 Cellulitis of right lower limb (principal); M86.9 Osteomyelitis, unspecified; T87.43 Infection of amputation stump, right lower extremity | CPT/HCPCS: 99222; 99232; 99239; G0180 ==

== ENCOUNTER 2024-06-12 12:54 | Outpatient (AMB) | payer MEDICARE, SELFPAY ==
--- NOTE | 2024-06-12 13:03 | MHC.OFFVIS ---
Intake Visit Reasons: 2 week follow up hospital Intake Note: 2 week follow up right BKA non-healing wound hospital follow up. Pt has Pic line in for ABx. VNA comes every Sunday. Accompanied by: Self / Same As Patient Allergies No Known Allergies Allergy (Verified 06/12/24 13:07) HPI HPI 2 week follow up hospital: Details: Zan is presenting today for a 2w follow up to hospital visit, where he was admitted for osteo. He states he has been doing much better at home with the pain as well as drainage from the BKA site. He continues with IV Vanco until 07/10. He states he has been tolerating it well but states he has been getting some nausea/upset stomach, for which he has been eating a couple of yogurts a day, and that has been helping. He states the site has not been draining as much as it was and he feels like it is closing up more. He has no new concerns today. [facility] Medical History Osteomyelitis Krish angina Left bundle branch block Bakers cyst Nicotine dependence, cigarettes, uncomplicated Arthritis BPH (benign prostatic hyperplasia) Elevated cholesterol Complex regional pain syndrome i of right lower limb S/P angiogram of extremity (07/18/23) Atrial fibrillation History of Palmer's esophagus Splenic vein thrombosis History of femoral angiogram GERD (gastroesophageal reflux disease) COPD (chronic obstructive pulmonary disease) Peripheral arterial disease Surgical History History of tonsillectomy Hx of oral surgery Hx of tracheostomy History of esophagogastroduodenoscopy (EGD) H/O colonoscopy Social History Household Members: None Household Members Other:: Son, son girlfriend, grandbaby Housing: House Housing Other:: 3 stairs to climb Are you a primary acute care registered nurse to a significant other at home: No Do you presently have visiting nurse or other home services: Yes Comment: Dr Knott made aware of absent pulse and sensation in right foot Patient Tobacco Use Status: Current everyday Tobacco user Tobacco use type: Cigarette Cigarette Packs Per Day: 0.5 Cigarettes Per Day: 10 Years Smoked: 50 e-Cigarette/Vaping Use: Currently Using Second Hand Smoke Exposure: No Substance Use Type: Marijuana service: No Review of Systems Const Reports as per HPI and Denies weakness ENT Reports Normal hearing present and Denies dizziness Card Reports as per HPI, Denies chest pain, Denies chest pain at rest, Denies chest pain with activity, Denies dyspnea and Denies dyspnea on exertion Resp Reports as per HPI, Denies cough, Denies dyspnea and Denies dyspnea on exertion GI Reports as per HPI, Denies abdominal pain, Denies nausea and Denies vomiting Musc Denies numbness Skin/Breast Reports as per HPI, Denies erythema and Denies wounds Neuro Reports Normal hearing present, Denies dizziness, Denies numbness, Denies Sensory deficit (Neuro) and Denies weakness Psych Reports no additional complaints Endo Reports no additional complaints Physical Exam Const General: healthy appearing and no acute distress Orientation/consciousness: patient oriented x3 HEENT Head: Yes normal to inspection Ears: hearing grossly normal bilaterally Mouth: Normal oral and palatal mucosa present Resp Effort & Inspection: normal respiratory effort and able to speak in complete sentences Auscultation: clear to auscultation bilaterally Cardio Jugular venous distension: no JVD Rate: regular rate Rhythm: regular rhythm Heart sounds: S1 normal heart sound present and S2 normal heart sound present Bruits: no abdominal aortic bruits, no carotid bruits, no femoral bruits and no renal bruits Peripheral pulses: Peripheral pulses 2+ throughout GI Inspection: Yes normal to inspection Palpation (GI): No Abdominal aortic bruit present Skin General skin exam: no rashes or lesions noted Wounds: no wounds Hair: normal Neuro General: patient oriented x3 Cranial nerves: Yes Normal hearing present Cognition (Neuro): normal cognition Gait exam (Neuro): Normal gait present Motor exam (neuro): 5/5 motor strength present throughout Sensory Exam: No Sensory deficit (Neuro) Extrem Other: Right BKA site: opening measuring 0.4cmx0.2cm, decreased from last measurement in the office on 05/20 of 0.5cmx0.5cm. Minimal serous drainage noted on the bandage. Not painful to palpation. General: Yes normal to inspection, Yes full ROM, Yes capillary refill normal and Yes normal gait Assessment & Plan Assessment & Plan (1) Below-knee amputation of right lower extremity: Code(s): S88.111A - Complete traumatic amputation at level between knee and ankle, right lower leg, initial encounter Category: Medical Qualifiers: Encounter type: subsequent encounter Qualified Code(s): S88.111D - Complete traumatic amputation at level between knee and ankle, right lower leg, subsequent encounter Plan: Zan is presenting today for a 2w hospital follow up due to findings of osteo in the right BKA. He states he is doing much better and feeling much better. He states the drainage has decreased significantly and the site is getting smaller. The site has gotten smaller and there is less serous drainage. We will continue with dressing changes every 2-3 days, depending on the amount of drainage, with Allevyn dressings. We discussed decreasing the Gabapentin; he states currently he is taking 300mg bid and 600mg at bedtime; he states bedtime is the time he has the most pain. We discussed to start alternating Tylenol and Ibuprofen during the day and then using the Braydon at night. He is in agreement to this. We discussed to continue with the current dressing changes and we will follow up with him in 1m. We discussed that if anything comes up in between now and then, to call us. If there are any questions or concerns, please do not hesitate to reach out to us. Coding Level of Care Code Est Pt Level 3 (52303) Diagnoses Below-knee amputation of right lower extremity, subsequent encounter S88.111D Encounter type: subsequent encounter
--- OUTSIDE RECORDS SUMMARY | 2024-06-12 15:45 | XMS_ITS | Encounter Summary ---
Author Organization [facility] Address [address] [place] [address] [place] [address] Phone Care Team Providers Care Recycling Coordinator Name Role Phone Quinton Callahan MD Primary Care Provider +1- [phone] Encounter Details Date Type Department Care Team (Late st Contact Info) Description 12/02/2023 Procedure Pass [facility] Periop [address] [place] [address] Social History Tobacco Use Types Packs/Day Years [...] on filedocumented in this encounter Care Teams Recycling Coordinator Relationship Specialty Start Date End Date Quinton Callahan MD [address] [place] [address] PCP - General Medical Oncology 11/23/23 documented as of this encounter Additional Source Comments The information contained in this document represents components of the legal health record. It is not the complete legal health record.[facility]
--- OUTSIDE RECORDS SUMMARY | 2024-06-12 15:45 | XMS_ITS ---
Author Organization [facility] Address [address] [place] [address] Care Team Providers Care Pillow Agent Name Role Phone London MORIN, Quinton Primary Care Provider Unavailab Quinton Alvarez Unavailable [phone] REASON FOR VISIT no show Encounters Encounter Location Date Provider Diagnosis [facility] [address] [place] [address] 08/14/2023 Quinton Campos Plan Of Treatment No Information Progress Notes * HERNANDEZJAZMINE HEREDIACARMENHDOB:1960 (63 yo M)Acc No.[id number]:08/14/2023 Patient:?JUAN FRANCISCO HERNANDEZ :1960???Age:63 Y???Sex:Male Address:[address] [place] [address] [place] [address] * true * Date:? Generated for Montanai robby/Jai/eTransmitting on:?06/12/2024 03:45 PM EDT
--- OUTSIDE RECORDS SUMMARY | 2024-06-12 15:45 | XMS_ITS ---
Author Organization Quinton Callahan III, MD Address [address] [place] [address] Care Team Providers Care Enrollment Representative Name Role Phone Quinton Callahan Primary Care Provider REASON FOR VISIT Message Social History Sex Assigned At : Social History Observation Description Sex Assigned At Male Encounters Encounter Location Date Provider Diagnosis [address] [id number] 06/02/2024 Quinton Callahan Plan Of Treatment Next Appt Details Provider Name:Quinton Callahan, 07/10/2024 11:45:00 AM, [address] [place] [address] [place], [address], Provider Name:Quinton Callahan, 10/15/2024 11:00:00 AM, [address] [place] [address] [place], [address], Progress Notes * ENCINASJuanrheahDOB:1960 (64 yo M)Acc No.[id number]:06/02/2024 Patient:?Zan ENCINAS :1960???Age:64 Y???Sex:Male Address:[address] [place] [address], [facility], [place], [address] * true * Date:? Generated for Printi ng/Faxing/eTransmitting on:?06/12/2024 03:45 PM EDT
--- OUTSIDE RECORDS SUMMARY | 2024-06-12 15:45 | XMS_ITS | Clinical Summary ---
Author Organization [facility] Address [address] [place] [address] Phone Care Team Providers Care Programmer Numerical Control Name Role Phone Quinton Callahan MD Primary Care Provider +1- [phone] Allergies No known active allergies Medications Medication [...] exists SCREENING FOR DIABETES 02/17/2027 02/18/2024, 2023 HEPATITIS A VACCINES Aged Out No long er eligible based on patient's age to complete this topic HIB VACCINES Aged Out No longer eligi ble based on patient's age to complete this topic MENINGOCOCCAL VACCINES (ACWY) Aged Out No longer eligible based on patient's age to complete this topic Medical Devices Implanted Type Area Sign Hanger Supervisor Device Identifier Shelf Expiration Date Model / Serial / Lot Graft Vascular 6.0mmx60 70cm Propaten Heparin Carmeda Bioactive Surface Thin Wall Removable Ring Stretch - [id number] Implanted:Qty: 1 on 12/02/2023 by Percy Segundo MD at [facility] STANDARD Right: Vein [employer] [id number] 08/13/2026 [id number] / [id number] / Metal Clip Celd Left Groin 10/2023 Stent Right Femoral Artery Patch Pericardium 2cm 9cm Decellularized Bovine [employer] - [id number] Implanted:Qty: 1 on 12/02/2023 by Percy Segundo MD at [facility] Right: Vein [employer] [id number] 03/24/2025 [id number] / / [id number] Procedures Procedure Name Priority Date/Time Associated Diagnosis Comments BASIC METABOLIC PANEL Routine 02/18/2024 8:01 AM EST Aftercare for amputation stump LIPID PANEL Routine 11/28/2023 1:21 AM EDT from Last 3 Months or Most Recently Relevant to Health Maintenance Results * (ABNORMAL) Basic metabolic panel (02/18/2024 8:01 AM EST) SODIUM 137 133 - 146 mmol/L [facility] CHLORIDE 102 96 - 108 mmol/L [facility] POTASSIUM 4.4 3.3 - 5.1 mmol/L [facility] CO2 25 21 - 35 mmol/L [facility] BUN 13 6 - 19 mg/dL [facility] CREATININE 0.70 0.5 - 1.5 mg/dL [facility] GLUCOSE 101(H) 70 - 99 mg/dL [facility] CALCIUM 9.7 8.4 - 10.3 mg/dL [facility] EGFR 102 >59 mL/min/1.7 3m2 [facility] Comment:Estimated glomerular filtration rate calculated using the CKD-EPI refit equation. ANION GAP 14 10 - 20 mmol/L [facility] Blood 02/18/2024 8:01 AM EST 02/18/2024 10:00 AM EST Garrett Fletcher MD LAB BLOOD ORDERABLES [facility] [address] [place] [address] * Lipid panel (11/28/2023 1:21 AM EDT) CHOLESTEROL 125 <200 mg/dL [facility] TRIGLYCERIDES 60 35 - 150 mg/dL [facility] HDL 60 40 - 80 mg/dL [facility] CALCULATED LDL 53 50 - 129 mg/dL [facility] VLDL 12 <31 mg/dL [facility] CARDIAC RISK RATIO 2.1 0.0 - 4.0 [facility] Blood 11/28/2023 1:21 AM EDT 11/28/2023 1:35 AM EDT Ayla Owens PA-C LAB BLOOD ORDERAB LES [facility] [address] [place] [address] from Last 3 Months or Most Recently Relevant to Health Maintenance Advance Directives For more information, please contact: [phone] (9AM - 5PM [facility], Sunday-Sunday) * Full Code (Latest Code Status on File) Date Activated Date Inactivated Comments 11/27/2023 4:16 PM Question Answer Comments Code Status Confirmed With: Patient Care Teams Programmer Numerical Control Relationship Specialty Start Date End Date Quinton Callahan MD [address] [place] [address] PCP - General Medical Oncology 11/23/23 Additional Source Comments The information contained in this document represents components of the legal health record. It is not the complete legal health record.[facility]
--- OUTSIDE RECORDS SUMMARY | 2024-06-12 15:45 | XMS_ITS | Encounter Summary ---
Author Organization [facility] Address [address] [place] [address] [place] [address] Phone Care Team Providers Care Yarrow Gatherer Name Role Phone Quinton Callahan MD Primary Care Provider +1- [phone] Encounter Details Date Type Department Care Team (Late st Contact Info) Description 12/08/[address] [facility] EKG [address] [place] [address] Social History Tobacco Use Types Packs/Day Years [...] on filedocumented in this encounter Care Teams Yarrow Gatherer Relationship Specialty Start Date End Date Quinton Callahan MD [address] [place] [address] PCP - General Medical Oncology 11/23/23 documented as of this encounter Additional Source Comments The information contained in this document represents components of the legal health record. It is not the complete legal health record.[facility]
--- OUTSIDE RECORDS SUMMARY | 2024-06-12 15:46 | XMS_ITS | Encounter Summary ---
Author Organization [facility] Address [address] [place] [address] [place] [address] Phone Care Team Providers Care Ladle Puller Name Role Phone Quinton Callahan MD Primary Care Provider +1- [phone] Encounter Details Date Type Department Care Team (Late st Contact Info) Description 11/28/2023 Procedure Pass [facility] [address] [place] [address] Social History Tobacco Use Types Packs/Day Years [...] on filedocumented in this encounter Care Teams Ladle Puller Relationship Specialty Start Date End Date Quinton Callahan MD [address] [place] [address] PCP - General Medical Oncology 11/23/23 documented as of this encounter Additional Source Comments The information contained in this document represents components of the legal health record. It is not the complete legal health record.[facility]
--- OUTSIDE RECORDS SUMMARY | 2024-06-12 15:46 | XMS_ITS | Encounter Summary ---
Author Organization [facility] Address [address] [place] [address] [place] [address] Phone Care Team Providers Care Photolithographer Name Role Phone Quinton Callahan MD Primary Care Provider +1- [phone] Encounter Details Date Type Department Care Team (Late st Contact Info) Description 11/28/2023 Procedure Pass [facility] [address] [place] [address] Social History Tobacco Use Types Packs/Day Years [...] on filedocumented in this encounter Care Teams Photolithographer Relationship Specialty Start Date End Date Quinton Callahan MD [address] [place] [address] PCP - General Medical Oncology 11/23/23 documented as of this encounter Additional Source Comments The information contained in this document represents components of the legal health record. It is not the complete legal health record.[facility]
--- OUTSIDE RECORDS SUMMARY | 2024-06-12 15:46 | XMS_ITS | Encounter Summary ---
Author Organization [facility] Address [address] [place] [address] [place] [address] Phone Care Team Providers Care Lanolin Plant Operator Name Role Phone Quinton Callahan MD Primary Care Provider +1- [phone] Encounter Details Date Type Department Care Team (Late st Contact Info) Description 11/28/2023 Procedure Pass [facility] [address] [place] [address] Social History Tobacco Use Types Packs/Day Years [...] on filedocumented in this encounter Care Teams Lanolin Plant Operator Relationship Specialty Start Date End Date Quinton Callahan MD [address] [place] [address] PCP - General Medical Oncology 11/23/23 documented as of this encounter Additional Source Comments The information contained in this document represents components of the legal health record. It is not the complete legal health record.[facility]
--- OUTSIDE RECORDS SUMMARY | 2024-06-12 15:46 | XMS_ITS | Encounter Summary ---
Author Organization [facility] Address [address] [place] [address] [place] [address] Phone Care Team Providers Care Electroencephalogram Technologist Name Role Phone Quinton Callahan MD Primary Care Provider +1- [phone] Encounter Details Date Type Department Care Team (Late st Contact Info) Description 11/28/2023 Procedure Pass [facility] [address] [place] [address] Social History Tobacco Use Types Packs/Day Years [...] on filedocumented in this encounter Care Teams Electroencephalogram Technologist Relationship Specialty Start Date End Date Quinton Callahan MD [address] [place] [address] PCP - General Medical Oncology 11/23/23 documented as of this encounter Additional Source Comments The information contained in this document represents components of the legal health record. It is not the complete legal health record.[facility]
--- OUTSIDE RECORDS SUMMARY | 2024-06-12 15:46 | XMS_ITS ---
Author Organization [facility] Address [address] [place] [address] Care Team Providers Care Product Specialist Name Role Phone London MORIN, Quinton Primary Care Provider Unavailab Quinton Alvarez [phone] REASON FOR VISIT Patient presents today for EGD, NUGENT'S ESOPHAGUS Encounters Encounter Location Date Provider Diagnosis [facility] [address] [place] [address] 08/14/2023 Quinton Campos Plan Of Treatment No Information Progress Notes * SHAUNA HERNANDEZHDOB:1960 (64 yo M)Acc No.[id number]:08/14/2023 Progress Notes Patient:?JUAN FRANCISCO HERNANDEZ Provider:?Quinton Campos MD :1960???Age:63 Y???Sex:Male Duc e:08/14/2023 Address:[address] [place] [address] [place] [facility] Pcp:Quinton Callahan MD Subjective: * Chief Complaints: * ???1. Patient presents today for EGD, NUGENT'S ESOPHAGUS. * Medical History:? Objective: * Vitals:? Assessment: Plan: * Treatment: * * The named appointment provid er may or may not be the originator of this progress note, and it is not deemed complete until electronically signed by the appointment provider. Sign off status: Pending * Provider:?Quinton Capmos MD Date:? 024 Generated for Printi ng/Faxing/eTransmitting on:?06/12/2024 03:46 PM EDT
--- OUTSIDE RECORDS SUMMARY | 2024-06-12 15:46 | XMS_ITS ---
Author Organization Quinton Callahan III, MD Address [address] [place] [address] Care Team Providers Care Children Librarian Name Role Phone Quinton Callahan Primary Care Provider Allergies Allergen (clinical drug ingredient) Drug/Non Drug Allergy documented on EMR Reaction Allergy Type Onset Date Status No Known Drug Allergy Unknown Drug Allergy Active REASON FOR VISIT Hospital Follow up Medications Medication SIG (Take, Route, Frequency, Duration) Notes Start Date End Date Status Pantoprazole Sodium 40 MG Take 2 tablets by mouth once daily Active Albuterol Sulfate HFA 108 (90 Base) MCG/ACT INHALE 2 PUFFS BY MOUTH EVERY 4 TO 6 HOURS NEEDED FOR SHORTNESS OF BREATH OR WHEEZING Inhalation Active Gabapentin 300 MG 1 capsule Orally fou r times a day for 30 days 06/12/2024 Active Eliquis 5 MG 1 Tablet Orally twic e a day Active Vancomycin HCl 10 GM Intravenous for 8 Days Active Gabapentin 400 MG 1 capsule Orally fou r times a day 10/31/2023 Active ASA 1 tab Oral Active Tylenol 325 MG 1 tablet as needed O rally every 4 hrs Active Breo Ellipta 200-25 MCG/ACT INHALE 1 PUF F BY MOUTH ONCE DAILY Inhalation Active Atorvastatin Calcium 10 MG Take 1 tablet by mouth once daily Active Nystatin 615624 UNIT/GM 1 application Ex ternally Twice a [...] degrees Fahrenheit 06/13/19 25 Blood pressure systolic 148 mm Hg 06/13/19 25 Blood pressure diastolic 85 mm Hg 025 Heart Rate 46 /min 06/12/2024 Height 73 in 06/12/2024 Weight 193 lbs 06/12/2024 BMI 25.46 kg/m2 06/12/2024 Encounters Encounter Location Date Provider Diagnosis Quinton Callahan III, MD [address] [place] [address] [address] [place] [address] 06/12/2024 Quinton Callahan Peripheral arterial disease I73.9 Assessments Encounter Date Diagnosis (ICD Code) Assessment Notes Treatment Notes Treatment Clinical Notes 06/12/2024 Peripheral arterial disease (ICD-10 - I73.9) Plan Of Treatment Medication Medication Name Sig Start Date Stop Date Notes Pantoprazole Sodium 40 MG Take 2 tablets by mouth once daily Albuterol Sulfate HFA 108 (9 0 Base) MCG/ACT INHALE 2 PUFFS BY MOUTH EVERY 4 TO 6 HOURS NEEDED FOR SHORTNESS OF BREATH OR WHEEZING Inhalation Gabapentin 300 MG 1 capsule Orally fou r times a day for 30 days 06/12/2024 Eliquis 5 MG 1 Tablet Orally twice a day ASA 1 tab Oral Tylenol 325 MG 1 tablet as needed O rally every 4 hrs Breo Ellipta 200-25 MCG/ACT INHALE 1 PUF F BY MOUTH ONCE DAILY Inhalation Atorvastatin Calcium 10 MG Take 1 tablet by mouth once daily Nystatin 780654 UNIT/GM 1 application Ex ternally Twice a day 12/21/2023 Metoprolol Succinate ER 25 MG 1 tablet Orally Once a day ibuprofen 1 tab Oral Tamsulosin HCl 0.4 MG Take 2 capsules by mouth once daily Next Appt Details Follow Up: 4 Weeks, Reason: OV Provider Name:Quinton Callahan, 07/10/2024 11:45:00 AM, [address] [place] [address] [address], [place], [address], Provider Name:Quinton Callahan, 10/15/2024 11:00:00 AM, [address] [facility], [place], [address], Progress Notes * nAa ENCINAShDOB:1960 (64 yo M)Acc No.[id number]:06/12/2024 Patient:?Zan ENCINAS Provider:?Quinton Callahan MD :1960???Age:64 Y???Sex:Male Duc e:06/12/2024 Address:[address] [place] [address], [facility], [id number] Subjective: * Chief Complaints: * ???1. Hospital Follow up. * HPI: ???COVID-19 [place]ening:[place] [place] ec 9 angel, bleed behind the kidney, off anticoag eliquis, slow afib today, vNCO may 12 end of iv atb jaworek, 10 cig, noct x 2, EDENTULOUS, sees? angel q 2 weeks,. ?Questions?Have you had any new onset fever, chills, cough, congestion, sore throat, shortness of breath, muscle aches??No * ROS:?General/Constitutional:?pain?only normal aches and pains.?Chills?denies.?Fatigue?admits.?Fever?denies.?ENT:?Decreased hearing?denies.?Respiratory:?Cough?denies.?Cardiovascular:?Chest pain with exertion?denies.?Dyspnea on exertion?denies.?Shortness of breath?denies.?Gastrointestinal:?Constipation?denies.?Decreased appetite?denies.?Diarrhea?denies.?Heartburn?denies.?Nausea?denies.?Rectal bleeding?denies.?Vomiting?denies.?Hematology:?bruising?denies.?petechiae?denies.?Swollen glands?none have been noted.?Genitourinary:?Frequent urination?denies.?Musculoskeletal:?Muscle aches?denies.?Painful joints?denies.?Sciatica?denies.?Weakness?denies.?Skin:?Itching?denies.?Rash?denies.?Skin lesion(s)?denies.?Neurologic:?Difficulty speaking?denies.?Dizziness?denies.?Headache?denies.?Low back pain?denies.?Psychiatric:?Depressed mood?denies.? * Medical History:?Barretts es ophagus without dysplasia, Clot in splenic veins, COPD (chronic obstructive pulmonary disease), Benign prostatic hypertrophy, Tobacco dependence, GERD, Thrombus splenic vein 2000, History of cardiac irregularity, Umbilical hernia, Hiatal hernia, Low back pain, History of carpal tunnel syndrome, Overweight, Right calf claudication. * Surgical History:?tonsillect delia age 6 , tracheotomy due to Krish's angina after dental work 1985, upper endoscopy and colonoscopy, [facility], Dr. Quinton Campos 2009, upper endoscopy, [facility], Dr. Quinton Campos, Palmer's esophagus 2013, arteriogram right lower extremity 05/2019. * Hospitalization/Major Diagno stic Procedure:?Denies Past Hospitalization. * Family History:?Father: dece ased 73 yrs, Diabetes mellitus, coronary artery disease, myocardial infarction, coma with rhabdomyolysis, diagnosed with CVD, DM.?Mother: alive 80 yrs, Several skin cancers, healthy and well, adult-onset diabetes, hypertension, diagnosed with HTN, Cancer, DM.?Siblings: .?Paternal Grand Father: , diagnosed with Cancer.?Paternal Grand Mother: , diagnosed with Cancer.? paternal Grandfather disease Dx with Lung CA. Paternal grandmother disease Dx with pancreatic CA. He has 6 healthy children and 11 healthy grandchildren. One of his siblings has Mqghtdi-Pvavb-Yrghy disease. One of his children has had an appendectomy. A paternal grandfather of lung cancer and a paternal grandmother of pancreatic cancer. 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 He was born in [place], [place]. He came to [place] in 1984. He is with 6 children. He has 11 grandchildren. He is a of [employer]. He trained at [employer] and served in [employer] * Medications:?Taking Nystatin 702656 UNIT/GM Powder 1 application Externally Twice a day , Taking Atorvastatin Calcium 10 MG Tablet Take 1 tablet by mouth once daily , Taking Tamsulosin HCl 0.4 MG Capsule Take 2 capsules by mouth once daily , Taking ibuprofen 1 tab Oral , Taking Tylenol 325 MG Tablet 1 tablet as needed Orally every 4 hrs , Taking ASA 1 tab Oral , Taking Breo Ellipta 200-25 MCG/ACT Aerosol Powder Breath Activated INHALE 1 PUFF BY MOUTH ONCE DAILY Inhalation , Taking Albuterol Sulfate HFA 108 (90 Base) MCG/ACT Aerosol Solution INHALE 2 PUFFS BY MOUTH EVERY 4 TO 6 HOURS NEEDED FOR SHORTNESS OF BREATH OR WHEEZING Inhalation , Taking Pantoprazole Sodium 40 MG Tablet Delayed Release Take 2 tablets by mouth once daily , Taking Gabapentin 400 MG Capsule 1 capsule Orally four times a day , Taking Metoprolol Succinate ER 25 MG Tablet Extended Release 24 Hour 1 tablet Orally Once a day , Taking Vancomycin HCl 10 GM Solution Reconstituted Intravenous , Discontinued Eliquis 5 MG Tablet 1 Tablet Orally twice a day , Medication List reviewed and reconciled with the patient * Allergies:?No Known Drug All ergy. Objective: * Vitals:?Ht: 73, Wt:193, BMI: 25.46, BP:148/85, HR:46, Temp:98.6, Ht-cm: 185.42, Wt-k.54. * Examination: ???General Examination: ?GENERAL APPEARANCE:?pleasant, well nourished, well developed, in no acute distress, calm and relaxed.?HEAD:?atraumatic, normocephalic.?EYES:?eomi, perrla, anicteric, conjugate.?EARS:?normal.?NOSE:?septum intact.?ORAL CAVITY:?normal, unremarkable.?NECK/THYROID:?no jugular venous distention, no carotid bruit, thyroid normal.?LYMPH NODES:?no enlarged lymph nodes,spleen normal.?SKIN:?no suspicious lesions, anicteric.?HEART:?no clicks, gallops, murmurs, or rubs, regular rhythm, S1, S2 normal, no s3, or vascular bruits.?LUNGS:?clear to auscultation .?BREASTS:??no masses palpable bilaterally.?ABDOMEN:?bowel sounds normal, no ascites, no organomegaly, no mass.?RECTAL EXAM:?not examined.?MUSCULOSKELETAL:?extremities unremarkable, no clubbing, cyanosis or edema.?PERIPHERAL PULSES:?normal.?NEUROLOGIC:?alert and oriented, cranial nerves 2-12 grossly intact, deep tendon reflexes 2+ symmetrical, motor strength normal upper and lower extremities, sensory exam intact.?PSYCH:?alert, oriented.? Assessment: * Assessment: 1.?Peripheral arterial disea se - I73.9??? Plan: * Treatment: 2.?Others? Continue Nystatin Powder, 338920 UNIT/GM, 1 application, Externally, Twice a day;?Continue Atorvastatin Calcium Tablet, 10 MG, Take 1 tablet by mouth once daily;?Continue Tamsulosin HCl Capsule, 0.4 MG, Take 2 capsules by mouth once daily;?Continue Pantoprazole Sodium Tablet Delayed Release, 40 MG, Take 2 tablets by mouth once daily.?? * Follow Up:?4 Weeks (Reason: OV) * Images: * The named appointment provid er may or may not be the originator of this progress note, and it is not deemed complete until electronically signed by the appointment provider. Sign off status: Pending * Provider:?Quinton Callahan MD Date:?05/27 Generated for Tristen bustamante/Jai/eTransmitting on:?06/12/2024 03:45 PM EDT History and Physical Notes * HPI (History of Present Illness) Category Sub-Category Detail Notes COVID-19 Screening Questions Have you had any new onset fever, chills, cough, congestion, sore throat, shortness of breath, muscle aches?: No Examination Category Sub-Category Detail Notes General Examination GENERAL APPEARANCE: pleasant , well nourished, well developed, in no acute distress, calm and relaxed HEAD: atraumatic, normocep halic EYES: eomi, perrla, [...] extremities unremark able, no clubbing, cyanosis or edema LYMPH NODES: no enlarged lymph no pinky,spleen normal RECTAL EXAM: not examined PSYCH: alert, oriented ORAL CAVITY: normal, unremarkable
--- OUTSIDE RECORDS SUMMARY | 2024-06-12 15:46 | XMS_ITS ---
Author Organization Quinton Callahan III, MD Address [address] [place] [address] Care Team Providers Care Model Maker Firearms Name Role Phone Quinton Callahan Primary Care [...] Provider Diagnosis Quinton Callahan III, MD [address] [place] [address] [place] [address] 05/02/2024 Quinton Callahan Peripheral arterial disease I73.9 Assessments Encounter Date Diagnosis (ICD Code) Assessment Notes Treatment Notes Treatment Clinical Notes 05/02/2024 Peripheral arterial disease (ICD-10 - I73.9) Plan Of Treatment Medication Medication Name Sig Start Date Stop Date Notes Metoprolol Succinate ER 25 MG 1 tablet O rally Once a day for 30 days Next Appt Details Provider Name:Quinton Callahan, 07/10/2024 11:45:00 AM, [address] [place] [address] [place], [address], Provider Name:Quinton Callahan, 10/15/2024 11:00:00 AM, [address] [place] [address] [place], [address], Progress Notes * Katie ENCINASOB:1960 (64 yo M)Acc No.[id number]:05/02/2024 Patient:?Zan ENCINAS :1960???Age:64 Y???Sex:Male Address:[address] [place] [address], [facility], [place], [address] * Refills? Refill Metoprolol Succinate ER Tablet Extended Release 24 Hour, 25 MG, Orally, 30 Tablet, 1 tablet, Once a day, 30 days, Refills=11 * true * Date:? Generated for Tristen bustamante/Jai/eTransmitting on:?06/12/2024 03:46 PM EDT
--- OUTSIDE RECORDS SUMMARY | 2024-06-12 15:46 | XMS_ITS | Patient Health Record ---
Author Organization Quinton Callahan III, MD Address [address] [place] [address] Care Team Providers Care Micro Paleontologist Name Role Phone Quinton Callahan Primary Care Provider [phone] Allergies Allergen (clinical drug ingredient) Drug/Non Drug Allergy documented on EMR Reaction Allergy Type Onset Date Status No Known Drug Allergy Unknown Drug Allergy Active Results Component Value Reference Range Notes Routine Culture Reviewed date:09/30/2023 06:32:33 AM Interpretation: Performing Lab:[facility], [address] [place] [phone] Notes/Report: Routine Culture No growth after 2 [...] 0.2 - 1.3 BLD Negative Negative - Blood Urea Nitrogen Reviewed date:06/18/2023 01:31:54 PM Interpretation: Performing Lab:[facility], [address] [place] [phone] Notes/Report: Blood Urea Nitrogen 12 9-16 mg/dL Creatinine Reviewed date:06/18/2023 01:31:54 PM Interpretation: Performing Lab:[facility], [address] [place] [phone] Notes/Report: Creatinine 0.74 0.5-1.4 mg/dL Estimated Glomerular Filt Rate > 60 NOTE: For -[place]icarag[place] individuals, multiply the result by 1.210. Chronic Kidney Disease: Estimated GFR < 60 mL/min/1.73m2 Severe Kidney Disease: Estimated GFR < 15 mL/min/1.73m2 CT angio abd aorta runoff Reviewed date:07/03/2023 10:30:19 AM Interpretation: Performing Lab: Notes/Report: [address] [address] [address] Scan Report Signed Patient: Zan Encinas MR#: [id number] : 1960 Acct:[id number] Age/Sex: 63 / M ADM Date: 06/28/23 Loc: HO.CT Attending Dr: Bimal Knott MD Ordering Physician: Bimal Knott MD Date of Service: 06/28/23 Procedure(s): CT angio abd aorta runoff Accession Number(s): [id number] cc: Quinton Callahan MD; Bimal Knott MD STUDY PERFORMED: CTA ABDOMEN, PELVIS AND LOWER EXTREMITY RUNOFF WITH CONTRAST HISTORY: Reason for Exam I73.9 - Peripheral vascular disease, unspecified DESCRIPTION: Routine abdominal aorta and lower extremity runoff CTA protocol with contrast was performed. 100 mL of Omnipaque was administered. 3D POSTPROCESSING: Multiple 3-D angiographic images were processed from the initial data set by the [facility] under concurrent physician supervision. [...] in OV> 07/02/23 1003 DD/ 0900 TD/TT: Direct Marketing Intern: [address] [address] [address] Scan Report Signed Patient: Zan Encinas MR#: [id number] : 1960 Acct:[id number] Age/Sex: 63 / M ADM Date: 06/28/23 Loc: HO.CT Attending Dr: Bimal Knott MD Ordering Physician: Bimal Knott MD Date of Service: 06/28/23 Procedure(s): CT ang io abd aorta runoff Accession Number(s): [id number] cc: Quinton Callahan MD; Bimal Knott MD [...] from the initial data set by the [facility] under concurrent physician supervision. [...] left-sided hydronephrosis, but no hydroureter Dictated By: Matson,Reymundo MD Signed By: <Electronically signed by Reymundo Matson MD in OV> 07/02/23 1003 DD/ 0900 TD/TT: Direct Marketing Intern: Complete Blood Count Auto Di ff Reviewed date:07/24/2023 09:31:57 AM Interpretation: Performing Lab:[facility], [address] [place] [phone] Notes/Report: White Blood Count 7.7 4.8-10.8 X10*3/uL [...] Nitrogen Reviewed date:07/24/2023 09:31:57 AM Interpretation: Performing Lab:[facility], [address] [place] [phone] Notes/Report: Blood Urea Nitrogen 22 9-16 mg/dL Creatinine Reviewed date:07/24/2023 09:31:57 AM Interpretation: Performing Lab:[facility], [address] [place] [phone] Notes/Report: Creatinine 0.92 0.5-1.4 mg/dL Creatinine Clr Calc Pharmacy 87.8 eGFR (calculated from the MDRD study equation) and eCrCl (calculated from the Cockcroft-Gault equation) are based on different parameters and may not yield comparable results. If eCrCl result is absurd, please check patient's height/weight. Estimated Glomerular Filt Rate > 60 NOTE: For -[place]icaraguan individuals, multiply the result by 1.210. Chronic Kidney Disease: Estimated GFR < 60 mL/min/1.73m2 Severe Kidney Disease: Estimated GFR < 15 mL/min/1.73m2 Type and Screen Reviewed date:08/04/2023 05:32:19 AM Interpretation: Performing Lab:[facility], [address] [place] [phone] Notes/Report: Spec expiration changed by BELLO on 08/03/23 Reason: PAT NURSING: Call Blood Bank (ext. [phone]) to band patient on admission. Type and Screen in effect until 2300 on 08/13/2023. Witnessed by HUSSEIS Blood Type OP Antibody Screen NEGATIVE XR chest 2V Reviewed date:08/28/2023 05:01:16 AM Interpretation: Performing Lab: Notes/Report: [address] [address] XRay Report Signed Patient: Zan Encinas MR#: [id number] : 1960 Acct:[id number] Age/Sex: 63 / M ADM Date: 08/07/23 Loc: MIAN Attending Dr: Aleksandra Archuleta NP Ordering Physician: Aleksandra Archuleta NP Date of Service: 08/07/23 Procedure(s): XR chest 2V Accession Number(s): [id number] cc: Quinton Callahan MD; Aleksandra Archuleta LAND APPRAISER EXAMINATION: XR CHEST CLINICAL INFORMATION: Nicotine, cigarettes [...] MD in OV> 08/20/23928 DD/ 1250 TD/TT: Direct Marketing Intern: [address] [address] XRay Report Signed Patient: Zan Encinas MR#: [id number] : 1960 Acct:[id number] Age/Sex: 63 / M ADM Date: 08/07/23 Loc: MIAN Attending Dr: Apolonia Archuleta LAND APPRAISER Ordering Physician: Aleksandra Archuleta NP Date of Service: 08/07/23 Procedure(s): XR tory st 2V Accession Number(s): [id number] cc: Quinton Callahan MD; Aleksandra Archuleta LAND APPRAISER EXAMINATION: XR CHEST CLINICAL INFORMATION: Nicotine, cigarettes [...] for this patient 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 Dictated By: Yudy Simon MD Signed By: <Electronically signed by Yudy Simon MD in OV> 08/20/23928 DD/ 1250 TD/TT: Direct Marketing Intern: JESUS garcia SPECT rest & str Reviewed date:08/11/2023 05:22:23 AM Interpretation: Performing Lab: Notes/Report: [place] [address] Nuclear Medicine Report Signed Patient: Zan Encinas MR#: [id number] : 1960 Acct:[id number] Age/Sex: 63 / M ADM Date: 08/09/23 [facility] Dr: Khalif Ferrer MD Ordering Physician: Khalif Ferrer MD Date of Service: 08/09/23 Procedure(s): NM gosia perf SPECT rest str Accession Number(s): [id number] cc: Quinton Callahan MD; Khalif Ferrer MD [...] in OV> 08/10/23 1257 DD/ 1120 TD/TT: Direct Marketing Intern: [place] [address] Nuclear Medicine Report Signed Patient: Zan Encinas MR#: [id number] : 1960 Acct:[id number] Age/Sex: 63 / M ADM Date: 08/09/23 Loc: [facility] Attending Dr: Khalif Ferrer MD Ordering Physician: Khalif Ferrer MD Date of Service: 08/09/23 Procedure(s): NM gosia perf SPECT rest str Accession Number(s): [id number] cc: Quinton Callahan MD; Khalif Ferrer MD Lexiscan Myocardial perfusion study Indication: Preoperative cardiovascular evaluation Technique: The patient was brou ght in for a Lexiscan perfusion study on 08/10/2023 and was injected 0.4 mg of Lexiscan intravenously. Within a minute of this injection 30 mC i of sestamibi was given intravenously. Images were obtained using the [employer] gamma camera interlaced with the gating device. [...] in OV> 08/10/23 1257 DD/ 1120 TD/TT: Direct Marketing Intern: US venous duplex LE RT Reviewed date:08/11/2023 05:22:23 AM Interpretation: Performing Lab: Notes/Report: [place] [address] Ultrasound Report Signed Patient: Zan Encinas MR#: [id number] : 1960 Acct:[id number] Age/Sex: 63 / M ADM Date: 08/10/23 Loc: HO.US Attending Dr: Bimal Knott MD Ordering Physician: Bimal Knott MD Date of Service: 08/10/23 Procedure(s): US venous duplex LE RT Accession Number(s): [id number] cc: Quinton Callahan MD; Bimal Knott MD [...] by Verena Marinelli MD in OV> 08/10/23 5107 DD/ 1336 TD/TT: Direct Marketing Intern: [place] [address] Ultrasound Report Signed Patient: Zan Encinas MR#: [id number] : 1960 Acct:[id number] Age/Sex: 63 / M ADM Date: 08/10/23 Loc: .US Attending Dr: Bimal Knott MD Ordering Physician: Bimal Knott MD Date of Service: 08/10/23 Procedure(s): US lazaro ous duplex LE RT Accession Number(s): [id number] cc: Quinton Callahan MD; Bimal Knott MD [...] in OV> 08/10/23 1857 DD/ 1336 TD/TT: Briefcase Sewer ist: PN Complete Blood Count no Diff Reviewed date:08/16/2023 09:15:46 PM Interpretation: Performing Lab:[address] [address] Notes/Report: White Blood Count 8.5 4.8-10.8 X10*3/uL [...] INR Reviewed date:08/16/2023 09:15:46 PM Interpretation: Performing Lab:[address] [address] Notes/Report: Prothrombin Time 11.2 11.1-13.3 SEC INTERNATIONAL [...] Time Reviewed date:08/16/2023 09:15:46 PM Interpretation: Performing Lab:[address] [address] Notes/Report: Partial Thromboplastin Time 26.7 26.0-36.8 SEC For information regarding the monitoring of direct thrombin inhibitors, please refer to Pharmacy. Basic Metabolic Panel Reviewed date:08/16/2023 09:15:46 PM Interpretation: Performing Lab:[address] [address] Notes/Report: Sodium 140 135-145 mmol/L Potassium 4.1 [...] Glomerular Filt Rate > 60 NOTE: For -[place]icarag[place] individuals, multiply the result by 1.210. Chronic Kidney Disease: Estimated GFR < 60 mL/min/1.73m2 Severe Kidney Disease: Estimated GFR < 15 mL/min/1.73m2 Glucose Random 103 60-115 mg/dL Calcium 9.4 8.4-10.2 mg/dL Complete Blood Count Auto Di ff Reviewed date:08/16/2023 09:15:46 PM Interpretation: Performing Lab:[address] [address] Notes/Report: White Blood Count 10.6 4.8-10.8 X10*3/uL [...] Panel Reviewed date:08/16/2023 09:15:46 PM Interpretation: Performing Lab:[facility], [address] [place] [address] Notes/Report: Sodium 140 135-145 mmol/L Potassium 3.6 [...] Glomerular Filt Rate > 60 NOTE: For -[place]icarag[place] individuals, multiply the result by 1.210. Chronic Kidney Disease: Estimated GFR < 60 mL/min/1.73m2 Severe Kidney Disease: Estimated GFR < 15 mL/min/1.73m2 Glucose Random 113 60-115 mg/dL Calcium 8.5 8.4-10.2 mg/dL Phosphorus Reviewed date:08/16/2023 09:15:46 PM Interpretation: Performing Lab:[facility], [address] [place] [phone] Notes/Report: Phosphorus 2.4 2.7-4.5 mg/dL Magnesium Reviewed date:08/16/2023 09:15:46 PM Interpretation: Performing Lab:[facility], [address] [place] [phone] Notes/Report: Magnesium 2.0 1.6-2.6 mg/dL Complete Blood Count Auto Di ff Reviewed date:08/16/2023 09:15:45 PM Interpretation: Performing Lab:[facility], [address] [place] [address] Notes/Report: White Blood Count 10.8 4.8-10.8 X10*3/uL [...] Panel Reviewed date:08/16/2023 09:15:45 PM Interpretation: Performing Lab:[facility], [address] [place] [address] Notes/Report: Sodium 137 135-145 mmol/L Potassium 3.6 [...] Glomerular Filt Rate > 60 NOTE: For -[place]icarag[place] individuals, multiply the result by 1.210. Chronic Kidney Disease: Estimated GFR < 60 mL/min/1.73m2 Severe Kidney Disease: Estimated GFR < 15 mL/min/1.73m2 Glucose Random 117 60-115 mg/dL Calcium 9.0 8.4-10.2 mg/dL Phosphorus Reviewed date:08/16/2023 09:15:45 PM Interpretation: Performing Lab:[facility], [address] [place] [address] Notes/Report: Phosphorus 2.1 2.7-4.5 mg/dL Magnesium Reviewed date:08/16/2023 09:15:46 PM Interpretation: Performing Lab:[facility], [address] [place] [address] Notes/Report: Magnesium 2.0 1.6-2.6 mg/dL Gram stain Reviewed date:09/30/2023 06:32:33 AM Interpretation: Performing Lab:[facility], [address] [place] [address] Notes/Report: Gram stain Gram stain results: Gram stain No polys Gram stain 1+ epithelial cells Gram stain No organisms seen CT chest wo con Reviewed date:11/15/2023 07:43:48 PM Interpretation: Performing Lab: Notes/Report: [address] [address] [address] Scan Report Signed with Addenda Patient: Zan Encinas MR#: [id number] : 1960 Acct:[id number] Age/Sex: 63 / M ADM Date: 09/26/23 Loc: HO.CT Attending Dr: Aleksandra Archuleta NP Ordering Physician: Aleksandra Archuleta NP Date of Service: 09/26/23 Procedure(s): CT chest wo IV con Accession Number(s): [id number] cc: Quinton Callahan MD; Aleksandra Archuleta NP ADDENDUM ADDENDUM #1 Results Acknowledgement: Confirmed with Lauren Mejía MA, on 11/06/2023 at 11:03 AM. Report was received and forwarded to Aleksandra Archuleta NP. Rosa Maria Rasheed, 11/06/2023 11:09 AM Electronically signed by: Stephanie Courtney MD 11/12/2023 06:11 PM EDT RP Addendum Dictated By: Stephanie Courtney MD Addendum [...] called to the ordering clinician by a [facility] Phys[facility] Game Tester. Electronically signed by: Stephanie Courtney MD 11/05/2023 06:52 PM EDT Dictated By: Stephanie Courtney MD Signed By: <Electronically signed by Stephanie Courtney MD in OV> 11/05/23 1852 DD/ 0733 TD/TT: 09/26/23 0758 Direct Marketing Intern: [address] [address] [address] Scan Report Signed with Carlos Patient: Zan Encinas MR#: [id number] : 1960 Acct:[id number] Age/Sex: 63 / M ADM Date: 09/26/23 Loc: HO.CT Attending Dr: Apolonia Archuleta NP Ordering Physician: Aleksandra Archuleta NP Date of Service: 09/26/23 Procedure(s): CT tory st wo IV con Accession Number(s): [id number] cc: Quinton Callahan MD; Aleksandra Archuleta NP [...] called to the ordering clinician by a [facility] Phys[facility] Game Tester. Electronically ivania d by: Stephanie Courtney MD 11/05/2023 06:52 PM EDT RP Dictated By: Stephanie Courtney MD Signed By: <Electronically signed by Stephanie Courtney MD in OV> 11/05/23 1852 DD/ 0733 TD/TT: 09/26/23 0758 Direct Marketing Intern: Complete Blood Count Auto Di ff Reviewed date:10/02/2023 07:28:20 AM Interpretation: Performing Lab:[facility], [address] [place] [address] Notes/Report: White Blood Count 11.0 4.8-10.8 X10*3/uL [...] te Reviewed date:10/02/2023 07:28:20 AM Interpretation: Performing Lab:[facility], [address] [place] [address] Notes/Report: Erythrocyte Sedimentation Rate 2 0-15 MM/HR Patients with polycythemia and many hemoglobin abnormalities may have depressed sed rates whereas patients with anemia may have elevated sed rates. Prothrombin Time INR Reviewed date:10/02/2023 07:28:20 AM Interpretation: Performing Lab:[address] [address] Notes/Report: Prothrombin Time 11.2 11.1-13.3 SEC INTERNATIONAL [...] Time Reviewed date:10/02/2023 07:28:20 AM Interpretation: Performing Lab:[facility], [address] [place] [address] Notes/Report: Partial Thromboplastin Time 29.0 26.0-36.8 SEC For information regarding the monitoring of direct thrombin inhibitors, please refer to Pharmacy. Comprehensive Met. Panel Reviewed date:10/02/2023 07:28:20 AM Interpretation: Performing Lab:[address] [address] Notes/Report: Sodium 141 135-145 mmol/L Potassium 3.9 [...] Glomerular Filt Rate > 60 NOTE: For -[place]icarag[place] individuals, multiply the result by 1.210. Chronic [...] Protein Reviewed date:10/02/2023 07:28:20 AM Interpretation: Performing Lab:[facility], [address] [place] [phone] Notes/Report: C Reactive Protein < 0.04 < or = 0.50 mg/dL US venous duplex LE RT Reviewed date:10/02/2023 07:28:20 AM Interpretation: Performing Lab: Notes/Report: [address] [address] Ultrasound Report Signed Patient: Zan Encinas MR#: [id number] : 1960 Acct:[id number] Age/Sex: 63 / M ADM Date: 10/01/23 Loc: .ED Attending Dr: Ordering Physician: Gt Cruz Date of Service: 10/01/23 Procedure(s): US venous duplex LE RT Accession Number(s): [id number] cc: Gt Cruz; Quinton Callahan MD EXAMINATION: [...] MD in OV> 10/01/231949 DD/ 43 TD/TT: Direct Marketing Intern: [place] [address] Ultrasound Report Signed Patient: Zan Encinas MR#: [id number] : 1960 Acct:[id number] Age/Sex: 63 / M ADM Date: 10/01/23 Loc: HO.ED Attending Dr: Ordering Physician: Gt Cruz Date of Service: 10/01/23 Procedure(s): US lazaro ous duplex LE RT Accession Number(s): [id number] cc: Gt Cruz; Quinton Calalhan MD EXAMINATION: US VENOUS ULTRASOUND WITH DOPPLER [...] MD in OV> 10/01/231949 DD/ 43 TD/TT: Briefcase Sewer ist: MO XR tibia fibula RT 2V Reviewed date:10/02/2023 07:28:20 AM Interpretation: Performing Lab: Notes/Report: [address] [address] XRay Report Signed Patient: Zan Encinas MR#: [id number] : 1960 Acct:[id number] Age/Sex: 63 / M ADM Date: 10/01/23 Loc: HO.ED Attending Dr: Ordering Physician: Gt Cruz Date of Service: 10/01/23 Procedure(s): XR tibia fibula RT 2V Accession Number(s): [id number] cc: Gt Cruz; Quinton Callahan MD EXAMINATION: [...] MD in OV> 10/01/231848 DD/ 58 TD/TT: Direct Marketing Intern: [address] [address] XRay Report Signed Patient: Zan Encinas MR#: [id number] : 1960 Acct:[id number] Age/Sex: 63 / M ADM Date: 10/01/23 Loc: .ED Attending Dr: Ordering Physician: Gt Cruz Date of Service: 10/01/23 Procedure(s): XR tib ia fibula RT 2V Accession Number(s): [id number] cc: Gt Cruz; Quinton Callahan MD EXAMINATION: XR foot RT 2V, XR tibia fibula RT 2V INDICATION: redness. osteo? COMPARISON: No perti nent prior studies are currently available for comparison. TECHNIQUE: 2 views t he right tibia and fibula and 3 views of the right foot FINDINGS: Vascular surgical clips are seen. Bones are normal anatomic alignment with no ac point hope ira fracture or dislocation. No bony destructive lesions. [...] MD in OV> 10/01/231848 DD/ 58 TD/TT: Briefcase Sewer ist: MO XR foot RT 2V Reviewed date:10/02/2023 07:28:20 AM Interpretation: Performing Lab: Notes/Report: [address] [address] XRay Report Signed Patient: Zan Encinas MR#: [id number] : 1960 Acct:[id number] Age/Sex: 63 / M ADM Date: 10/01/23 Loc: HO.ED Attending Dr: Ordering Physician: Gt Cruz Date of Service: 10/01/23 Procedure(s): XR foot RT 2V Accession Number(s): [id number] cc: Gt Cruz; Quinton Callahan MD EXAMINATION: [...] MD in OV> 10/01/231848 DD/ 58 TD/TT: Direct Marketing Intern: JOE [address] [address] XRay Report Signed Patient: Zan Encinas MR#: [id number] : 1960 Acct:[id number] Age/Sex: 63 / M ADM Date: 10/01/23 Loc: HO.ED Attending Dr: Ordering Physician: Gt Cruz Date of Service: 10/01/23 Procedure(s): XR chito t RT 2V Accession Number(s): [id number] cc: Gt Cruz; Quinton Callahan MD EXAMINATION: XR foot RT 2V, XR tibia fibula RT 2V INDICATION: redness. osteo? COMPARISON: No perti nent prior studies are currently available for comparison. TECHNIQUE: 2 views t he right tibia and fibula and 3 views of the right foot FINDINGS: Vascular surgical clips are seen. Bones are normal anatomic alignment with no ac point hope ira fracture or dislocation. No bony destructive lesions. [...] signed by Elder Gil MD in OV> 10/01/23 1849 DD/ TD/TT: Briefcase Sewer ist: MO Lactic Acid Reviewed date:10/02/2023 07:28:20 AM Interpretation: Performing Lab:[address] [address] Notes/Report: Lactic Acid 0.7 0.5-2.0 mmol/L Blood Culture (First) Reviewed date:10/14/2023 07:03:40 AM Interpretation: Performing Lab:[facility], [address] [place] [address] Notes/Report: Blood Culture (First) No growth after 5 days. Blood Culture (Second) Reviewed date:10/14/2023 07:03:40 AM Interpretation: Performing Lab:[address] [address] Notes/Report: Blood Culture (Second) No growth after 5 days. Complete Blood Count no Diff Reviewed date:10/04/2023 06:10:55 AM Interpretation: Performing Lab:[facility], [address] [place] [address] Notes/Report: White Blood Count 6.5 4.8-10.8 X10*3/uL [...] Panel Reviewed date:10/04/2023 06:10:55 AM Interpretation: Performing Lab:[facility], [address] [place] [address] Notes/Report: Sodium 140 135-145 mmol/L Potassium 4.0 [...] Glomerular Filt Rate > 60 NOTE: For -[place]icarag[place] individuals, multiply the result by 1.210. Chronic [...] g Reviewed date:10/04/2023 06:10:55 AM Interpretation: Performing Lab:[facility], [address] [place] [address] Notes/Report: Glucose Fasting 100 60-99 mg/dL A fasting glucose from 100-125 mg/dl is considered impaired (pre-diabetes). Vancomycin Random Reviewed date:10/04/2023 06:10:55 AM Interpretation: Performing Lab:[facility], [address] [place] [phone] Notes/Report: Vancomycin Random 9.5 15-20 mcg/mL US arterial duplex LE RT Reviewed date:11/15/2023 07:43:48 PM Interpretation: Performing Lab: Notes/Report: [address] [address] Ultrasound Report Signed Patient: Zan Encinas MR#: [id number] : 1960 Acct:[id number] Age/Sex: 63 / M ADM Date: 11/01/23 Loc: HO. Attending Dr: Bimal Knott MD Ordering Physician: Bimal Knott MD Date of Service: 11/01/23 Procedure(s): US arterial duplex LE RT Accession Number(s): [id number] cc: Quinton Callahan MD; Bimal Knott MD [...] Popliteal: Occluded Tibial: Occluded Distal femoral to ovcnk-lha-kivf bypass graft: Occluded There is a large complex multiseptated cystic collection seen in the proximal calf US/US arterial duplex LE RT IMPRESSION: 1. There is occlusion of the distal SFA and popliteal artery with a distal femoral to xhfkp-lel-iuve bypass graft which is also occluded. 2. There is a large multiseptated cystic collection in the proximal calf. Electronically signed by: Frankie Jimenez MD 11/01/2023 04:34 PM EDT RP Dictated By: Frankie Jimenez MD Signed By: <Electronically signed by Frankie Jimenez MD in OV> 11/01/23 1634 DD/ 1313 TD/TT: 11/01/23 1400 Direct Marketing Intern: [place] [address] Ultrasound Report Signed Patient: Zan Encinas MR#: [id number] : 1960 Acct:[id number] Age/Sex: 63 / M ADM Date: 11/01/23 Loc: . Attending Dr: Bimal Knott MD Ordering Physician: Bimal Knott MD Date of Service: 11/01/23 Procedure(s): US arterial duplex LE RT Accession Number(s): [id number] cc: Quinton Callahan MD; Bimal Knott MD [...] Popliteal: Occluded Tibial: Occluded Distal femoral to nrhqh-mtl-fqea bypass graft: Occluded There is a large com plex multiseptated cystic collection seen in the proximal calf U S/US arterial duplex LE RT IMPRESSION: 1. There is occlusio n of the distal SFA and popliteal artery with a distal femoral to dofqj-yzc-wlte bypass graft which is also occluded. 2. There is a large multiseptated cystic collection in the proximal calf. Electronically ivania d by: Frankie Jimenez MD 11/01/2023 04:34 PM EDT RP Dictated By: Frankie Jimenez MD Signed By: <Electronically signed by Frankie Jimenez MD in OV> 11/01/23 1634 DD/ 1313 TD/TT: 11/01/23 1400 Direct Marketing Intern: AMARA Creatinine GFR POC Reviewed date:11/15/2023 07:43:48 PM Interpretation: Performing Lab:[facility], [address] [place] [address] Notes/Report: [id number] 0.78 >60 0928 HO.THEBODA Creatinine POC 0.8 0.5-1.4 mg/dL GFR POC > 60 Chronic Kidney Disease: Estimated GFR < 60 mL/min/1.73m2 Severe Kidney Disease: Estimated GFR < 15 mL/min/1.73m2 CT angio abd aorta runoff Reviewed date:11/15/2023 07:43:48 PM Interpretation: Performing Lab: Notes/Report: [address] [address] [address] Scan Report Signed Patient: Zan Encinas MR#: [id number] : 1960 Acct:[id number] Age/Sex: 63 / M ADM Date: 11/09/23 Loc: .CT Attending Dr: Bimal Knott MD Ordering Physician: Bimal Knott MD Date of Service: 11/09/23 Procedure(s): CT angio abd aorta runoff Accession Number(s): [id number] cc: Quinton Callahan MD; Bimal Knott MD EXAMINATION: CT ANGIOGRAPHY ABDOMEN, PELVIS AND LOWER EXTREMITY RUNOFF WITH CONTRAST CLINICAL INFORMATION: I73.9 - Peripheral vascular disease, unspecified COMPARISON: CTA runoff June 28, 2023 TECHNIQUE: Initial noncontrast localizing classroom technology coach images were obtained. Timing boluses at the [...] Femoris: Patent. Popliteal Artery: Popliteal stent occluded. [place] popliteal artery below stent occluded for a [...] artery stent. 2. Below the stent, the [place] popliteal is occluded for a short segment [...] Jb Richards in OV> 11/13/23 1517 DD/ 5 TD/TT: 11/09/23 1013 Direct Marketing Intern: [place] [address] [address] Scan Report Signed Patient: Zan Encinas MR#: [id number] : 1960 Acct:[id number] Age/Sex: 63 / M ADM Date: 11/09/23 Loc: HO.CT Attending Dr: Bimal Knott MD Ordering Physician: Bimal Knott MD Date of Service: 11/09/23 Procedure(s): CT ang io abd aorta runoff Accession Number(s): [id number] cc: Quinton Callahan MD; Bimal Knott MD EXAMINATION: CT ANGIOGRAPHY ABDOM EN, PELVIS AND LOWER EXTREMITY RUNOFF WITH CONTRAST CLINICAL INFORMATION: I73.9 - Peripheral vascular disease, unspecified COMPARISON: CTA runoff June 28, 2023 TECHNIQUE: Initial noncontrast localizing classroom technology coach images were obtained. Timing boluses at the [...] Femoris: Patent. Popliteal Artery: Popliteal stent occluded. [place] popliteal artery below stent occluded for a [...] artery stent. 2. Below the stent, the [place] popliteal is occluded for a short segment [...] tibial artery is patent. 3. Dorsalis pedis an d plantar arch patent. NONVASCULAR: Intramuscular fluid collection measuring 2.9 x 2.8 cm within the right med ial soleus, new since prior CTA June 28, 2023. Fleischner guideline s were followed. Electronically ivania d by: Jb Richards DO 11/13/2023 03:17 PM EDT Dictated By: Jb Richards Signed By: <Electronically signed by Jb Richards in OV> 11/13/23 1517 DD/ 0926 TD/TT: 11/09/23 1013 Direct Marketing Intern: Complete Blood Count Auto Di ff Reviewed date:11/21/2023 06:36:35 AM Interpretation: Performing Lab:[facility], [address] [place] [phone] Notes/Report: White Blood Count 8.4 4.8-10.8 X10*3/uL [...] INR Reviewed date:11/21/2023 06:36:35 AM Interpretation: Performing Lab:[address] [address] Notes/Report: Prothrombin Time 10.3 10.9-12.4 SEC INTERNATIONAL [...] Time Reviewed date:11/21/2023 06:36:35 AM Interpretation: Performing Lab:[address] [phone] Notes/Report: Partial Thromboplastin Time 31.9 26.0-36.8 SEC For information regarding the monitoring of direct thrombin inhibitors, please refer to Pharmacy. Basic Metabolic Panel Reviewed date:11/21/2023 06:36:35 AM Interpretation: Performing Lab:[address] [address] Notes/Report: Sodium 143 135-145 mmol/L Potassium 4.5 [...] Glomerular Filt Rate > 60 NOTE: For -[place] individuals, multiply the result by 1.210. Chronic Kidney Disease: Estimated GFR < 60 mL/min/1.73m2 Severe Kidney Disease: Estimated GFR < 15 mL/min/1.73m2 Glucose Random 99 60-115 mg/dL Calcium 9.6 8.4-10.2 mg/dL Cancelled Chem Reviewed date:01/07/2024 01:28:15 PM Interpretation: Performing Lab:[facility], [address] [place] [phone] Notes/Report: Cancelled Chem SEE NOTE NO SPECIMEN R ECEIVED FOR BUN AND CREAT US arterial duplex LE RT Reviewed date:01/24/2024 07:41:27 AM Interpretation: Performing Lab: Notes/Report: [address] [address] Ultrasound Report Signed Patient: Zan Encinas MR#: [id number] : 1960 Acct:[id number] Age/Sex: 63 / M ADM Date: 01/01/24 Loc: HO.US Attending Dr: Bimal Knott MD Ordering Physician: Sera Saxena PA-C Date of Service: 01/01/24 Procedure(s): US arterial duplex LE RT Accession Number(s): [id number] cc: Quinton Callahan MD; Sera Saxena PA-C [...] by: Coleman Chaidez MD 01/23/2024 01:03 PM [facility] Dictated By: Coleman Chaidez MD Signed By: <Electronically signed by Coleman Chaidez MD in OV> 01/23/24 1303 DD/ 1430 TD/TT: 01/01/24 1517 Direct Marketing Intern: [place] [address] Ultrasound Report Signed Patient: Zan Encinas MR#: [id number] : 1960 Acct:[id number] Age/Sex: 63 / M ADM Date: 01/01/24 Loc: HO.US Attending Dr: Bimal Knott MD Ordering Physician: Hemanth,Sera S PA-C Date of Service: 01/01/24 Procedure(s): US arterial duplex LE RT Accession Number(s): [id number] cc: Quinton Callahan MD; Sera Saxena PA-C [...] by: Coleman Chaidez MD 01/23/2024 01:03 PM EST Dictated By: Coleman Chaidez MD Signed By: <Electronically signed by Coleman Chaidez MD in OV> 01/23/24 1303 DD/ 1430 TD/TT: 01/01/24 1517 Direct Marketing Intern: Complete Blood Count Auto Di ff Reviewed date:01/07/2024 01:28:15 PM Interpretation: Performing Lab:[facility], [address] [place] [address] Notes/Report: White Blood Count 8.2 4.8-10.8 X10*3/uL [...] Drip Reviewed date:01/08/2024 08:33:39 AM Interpretation: Performing Lab:[facility], [address] [place] [phone] Notes/Report: PTT Heparin Drip 33.9 53-77.9 SEC For information regarding the monitoring of heparin therapy, please refer to Pharmacy. Fibrinogen Reviewed date:01/08/2024 08:33:39 AM Interpretation: Performing Lab:[address] [address] Notes/Report: Fibrinogen 465 259-690 MG/DL Blood Urea Nitrogen Reviewed date:01/07/2024 01:28:15 PM Interpretation: Performing Lab:[address] [address] Notes/Report: Blood Urea Nitrogen 16 9-16 mg/dL Creatinine Reviewed date:01/07/2024 01:28:15 PM Interpretation: Performing Lab:[address] [address] Notes/Report: Creatinine 0.81 0.5-1.4 mg/dL Creatinine Clr Calc Pharmacy 99.7 eGFR (calculated from the MDRD study equation) and eCrCl (calculated from the Cockcroft-Gault equation) are based on different parameters and may not yield comparable results. If eCrCl result is absurd, please check patient's height/weight. Estimated Glomerular Filt Rate > 60 NOTE: For -[place] individuals, multiply the result by 1.210. Chronic Kidney Disease: Estimated GFR < 60 mL/min/1.73m2 Severe Kidney Disease: Estimated GFR < 15 mL/min/1.73m2 ACT LR Reviewed date:01/16/2024 08:51:12 AM Interpretation: Performing Lab:[address] [address] Notes/Report: out of range low [id number] HO.MARUSA 0906 HO.MULVEC Fibrinogen Reviewed date:01/08/2024 08:33:39 AM Interpretation: Performing Lab:[address] [address] Notes/Report: Fibrinogen 445 259-690 MG/DL Complete Blood Count no Diff Reviewed date:01/10/2024 09:47:57 AM Interpretation: Performing Lab:[address] [address] Notes/Report: White Blood Count 28.7 4.8-10.8 X10*3/uL [...] ff Reviewed date:01/08/2024 08:33:39 AM Interpretation: Performing Lab:[facility], [address] [place] [address] Notes/Report: White Blood Count 10.1 4.8-10.8 X10*3/uL [...] gy Reviewed date:01/08/2024 02:05:08 PM Interpretation: Performing Lab:[facility], [address] [place] [address] Notes/Report: Hold Lav - Possible Hematology SEE NOTE Specimen will be held untested for 8 hours. Call Hematology if testing is desired. PTT Heparin Drip Reviewed date:01/08/2024 08:33:39 AM Interpretation: Performing Lab:[facility], [address] [place] [address] Notes/Report: PTT Heparin Drip 40.9 53-77.9 SEC For information regarding the monitoring of heparin therapy, please refer to Pharmacy. Fibrinogen Reviewed date:01/08/2024 08:33:39 AM Interpretation: Performing Lab:[facility], [address] [place] [address] Notes/Report: Fibrinogen 432 259-690 MG/DL Basic Metabolic Panel Reviewed date:01/08/2024 08:33:39 AM Interpretation: Performing Lab:[facility], [address] [place] [address] Notes/Report: Sodium 138 135-145 mmol/L Potassium 3.8 [...] Phosphorus Reviewed date:01/08/2024 08:33:39 AM Interpretation: Performing Lab:[facility], [address] [place] [phone] Notes/Report: Phosphorus 2.9 2.7-4.5 mg/dL Magnesium Reviewed date:01/08/2024 08:33:39 AM Interpretation: Performing Lab:[facility], [address] [place] [address] Notes/Report: Magnesium 1.8 1.6-2.6 mg/dL Albumin Level Reviewed date:01/08/2024 08:33:39 AM Interpretation: Performing Lab:[facility], [address] [place] [address] Notes/Report: Albumin Level 3.2 3.5-5.0 g/dL ACT LR Reviewed date:01/11/2024 01:49:27 PM Interpretation: Performing Lab:[facility], [address] [place] [address] Notes/Report: 109 [id number] HO.MARUSA 0846 HO.MULVEC ACT 109 79-173 Celite s Results are converted to a reference Celite ACT value in seconds. A reference interval is unavailable for ACT. Kathy Flores Reviewed date:01/08/2024 02:05:08 PM Interpretation: Performing Lab:[facility], [address] [place] [phone] Notes/Report: Kathy Flores See Note Specimen held untested for 24 hours; Call to request Chemistry testing. SLIDE REVIEW Reviewed date:01/08/2024 02:05:08 PM Interpretation: Performing Lab:[facility], [address] [place] [address] Notes/Report: SLIDE REVIEW VERIFIED Type and Screen Reviewed date:01/11/2024 01:49:26 PM Interpretation: Performing Lab:[facility], [address] [place] [address] Notes/Report: Results at Issue Units as of [...] 01/09/241999 HGB PENDING RECEIPT 14.0-18.0 g/dl 01/09/24 1409 HGB 7.5 L 14.0-18.0 g/dl 01/09/241999 HCT PENDING RECEIPT 42.0-52.0 % 01/09/24 1409 HCT 22.0 L 42.0-52.0 % Results at Issue Units as of 01/10/24 0157 ... Test View Group: Most Recent HGB HCT Results LABORATORY Date Time Test Result Flag Normal Range 01/10/240 HGB PENDING RECEIPT 14.0-18.0 g/dl 01/09/241947 HGB 7.7 L 14.0-18.0 g/dl 01/10/24 0500 HCT PENDING RECEIPT 42.0-52.0 % 01/09/241947 HCT 23.3 L 42.0-52.0 % Results at Issue Units as of 01/10/241939 ... Test View Group: Most Recent HGB HCT Results LABORATORY Date Time Test Result Flag Normal Range 01/10/241934 HGB PENDING RECEIPT 14.0-18.0 g/dl 01/10/241748 HGB 3.7 #*L 14.0-18.0 g/dl Results of HGB called to and read back by PERFECTOGood Chow HoldingsLisa on 01/10/24 at 6 by BORIS. 01/10/241934 HCT PENDING RECEIPT 42.0-52.0 % 01/10/241748 HCT 10.5 #*L 42.0-52.0 % Results of HCT called to and read back by PERFECTOGood Chow HoldingsLisa on 01/10/24 at 1918 by BORIS. mL/HR Rate to transfuse BBK Product 100 mL/HR Rate to transfuse BBK Product 100 Results at Issue Units as of 01/10/242027 ... Test View Group: Most Recent HGB HCT Results LABORATORY Date Time Test Result Flag Normal Range 01/10/241943 HGB 3.3 *L 14.0-18.0 g/dl Results of HGB called to and read back by Page FoundryLisa on 01/10/24 at 9 by BORIS. 01/10/241943 HCT 9.9 *L 42.0-52.0 % Results of HCT called to and read back by PERFECTOHONORIO on 01/10/24 at 2000 by BORIS. Results [...] SEC Results at Issue Units as of 01/10/247 ... Test View Group: Most Recent HGB [...] 01/11/24 0500 PLT PENDING RECEIPT 160-400 X10*3/uL 11/15/24 0110 PLT 197 # 160-400 X10*3/uL mL/HR Rate to transfuse BBK Product 100 Results at Issue Units as of 01/11/24200 ... Test View Group: Most Recent Coag Results LABORATORY Date Time Test Result Flag Normal Range 01/10/24 0459 PT* 12.1 10.9-12.4 SEC Results at Issue Units as of 01/11/24 0201 ... Test View Group: Most Recent HGB HCT Results LABORATORY Date Time Test Result Flag Normal Range 01/11/24 050 HGB PENDING RECEIPT 14.0-18.0 g/dl 01/11/24109 HGB 6.7 #*L 14.0-18.0 g/dl Results of [...] Cells Reviewed date:01/11/2024 01:49:26 PM Interpretation: Performing Lab:[facility], [address] [place] [phone] Notes/Report: Red Blood Cells [id number] ON RC Red Blood Cells TRANSFUSED 01/09/24 0929 Red Blood Cells [id number] OP RC Red Blood Cells TRANSFUSED 01/09/24 1520 Red Blood Cells [id number] OP RC Red Blood Cells TRANSFUSED 01/10/24 0154 Red Blood Cells [id number] OP RC Red Blood Cells TRANSFUSED 01/10/24 1938 Red Blood Cells [id number] OP RC Red Blood Cells TRANSFUSED 01/10/242025 Red Blood Cells [id number] OP RC Red Blood Cells TRANSFUSED 01/10/24 2156 Red Blood Cells [id number] OP RC Red Blood Cells TRANSFUSED 01/10/242025 Red Blood Cells [id number] OP RC Red Blood Cells TRANSFUSED 01/11/24 0159 Red Blood Cells [id number] OP RC Red Blood Cells TRANSFUSED 01/11/24 0159 Arterial Blood Gases - POC Reviewed date:01/08/2024 02:05:08 PM Interpretation: Performing Lab:[facility], [address] [place] [phone] Notes/Report: ABG pH 7.42 7.35-7.45 METER #: [id number] additional_comment: Cbgreavet ctrbpavlova ABG pCO2 34 32-45 mmHg METER #: [id number] additional_comment: Cbgreavet ctrbpavlova ABG pO2 95 83-108 mmHg METER #: [id number] additional_comment: Cbgreavet ctrbpavlova ABG Base Excess -1.2 METER #: [id number] additional_comment: Cbgreavet ctrbpavlova ABG HCO3 22 22-26 mmol/L METER #: [id number] additional_comment: Cbgreavet ctrbpavlova ABG O2 % Saturation 99.0 METER #: [id number] additional_comment: Cbgreavet ctrbpavlova Pheresis Platelets Reviewed date:01/11/2024 01:49:27 PM Interpretation: Performing Lab:[facility], [address] [place] [phone] Notes/Report: Pheresis Platelets [id number] OP PHPLT Pheresis Platelets TRANSFUSED 01/11/24 0133 Hold Green Gel Reviewed date:01/08/2024 02:05:08 PM Interpretation: Performing Lab:[facility], [address] [place] [phone] Notes/Report: Hold Green Gel See Note Specimen held untested for 24 hours; Call to request Chemistry testing. Fresh Frozen Plasma Reviewed date:01/11/2024 01:49:27 PM Interpretation: Performing Lab:[facility], [address] [place] [phone] Notes/Report: Fresh Frozen Plasma [id number] AP FFP Fresh Frozen Plasma TRANSFUSED 01/11/24 0159 Fresh Frozen Plasma [id number] OP FFP Fresh Frozen Plasma TRANSFUSED 01/10/[address] abdomen pelvis w con Reviewed date:01/08/2024 02:05:08 PM Interpretation: Performing Lab: Notes/Report: [address] [place] [address] CT Scan Report Signed Patient: Zan Encinas MR#: [id number] : 1960 Acct:[id number] Age/Sex: 63 / M ADM Date: 01/07/24 Loc: [facility] 255-[address]: Bimal Knott MD Ordering Physician: Sawyer Case MD Date of Service: 01/08/24 Procedure(s): CT abdomen pelvis w IV con Accession Number(s): [id number] cc: Quinton Callahan MD; Sawyer Case MD [...] right superficial femoral vein. There are likely [place] bypass femoral, bilaterally.. OSSEOUS STRUCTURES: Multilevel thoracolumbar [...] 01/08/24 1221 DD/ 1105 TD/TT: 01/08/24 1125 Direct Marketing Intern: [place] [address] CT Scan Report Signed Patient: Zan Encinas MR#: [id number] : 1960 Acct:[id number] Age/Sex: 63 / M ADM Date: 01/07/24 Loc: [facility] 255-[address]: Bimal Knott MD Ordering Physician: Sawyer Case MD Date of Service: 01/08/24 Procedure(s): CT abd omen pelvis w IV con Accession Number(s): [id number] cc: Quinton Callahan MD; Sawyer Case MD [...] right superficial femoral vein. There are likely [place] bypass femoral, bilaterally.. OSSEOUS STRUCTURES: Multilevel thoracolumbar [...] by: Theo Stern MD 01/08/2024 12:21 PM [facility] Dictated By: Theo Sawyer MD Signed By: <Electronically signed by Theo Steven MD in OV> 01/08/24 1221 DD/ 1105 TD/TT: 01/08/24 1125 Direct Marketing Intern: Fibrinogen Reviewed date:01/08/2024 08:33:39 AM Interpretation: Performing Lab:[facility], [address] [place] [phone] Notes/Report: Fibrinogen 441 259-690 MG/DL Complete Blood Count Auto Di ff Reviewed date:01/08/2024 02:05:08 PM Interpretation: Performing Lab:[facility], [address] [place] [address] Notes/Report: White Blood Count 20.0 4.8-10.8 X10*3/uL [...] Drip Reviewed date:01/08/2024 02:05:08 PM Interpretation: Performing Lab:[facility], [address] [place] [address] Notes/Report: PTT Heparin Drip > 200.0 53-77.9 SEC Results of PTT-HD called to and read back by MARIELA on 01/08/24 at 1155 by FROY. For information regarding the monitoring of heparin therapy, please refer to Pharmacy. Basic Metabolic Panel Reviewed date:01/10/2024 09:47:57 AM Interpretation: Performing Lab:[facility], [address] [place] [phone] Notes/Report: Sodium 134 135-145 mmol/L Potassium 4.9 [...] Phosphorus Reviewed date:01/10/2024 09:47:57 AM Interpretation: Performing Lab:[facility], [address] [place] [phone] Notes/Report: Phosphorus 4.1 2.7-4.5 mg/dL Magnesium Reviewed date:01/10/2024 09:47:57 AM Interpretation: Performing Lab:[facility], [address] [place] [address] Notes/Report: Magnesium 1.9 1.6-2.6 mg/dL Complete Blood Count Auto Di ff Reviewed date:01/10/2024 09:47:57 AM Interpretation: Performing Lab:[facility], [address] [place] [address] Notes/Report: White Blood Count 21.8 4.8-10.8 X10*3/uL [...] REVIEW Reviewed date:01/10/2024 09:47:57 AM Interpretation: Performing Lab:[facility], [address] [place] [phone] Notes/Report: SLIDE REVIEW VERIFIED ACT LR Reviewed date:01/11/2024 01:49:27 PM Interpretation: Performing Lab:[facility], [address] [place] [address] Notes/Report: 203 [id number] HO.SETHUSA 0855 mulvec ACT 203 79-173 Celite s Results are converted to a reference Celite ACT value in seconds. A reference interval is unavailable for ACT. Complete Blood Count Auto Di ff Reviewed date:01/10/2024 09:47:57 AM Interpretation: Performing Lab:[facility], [address] [place] [address] Notes/Report: White Blood Count 16.7 4.8-10.8 X10*3/uL [...] gy Reviewed date:01/10/2024 09:47:57 AM Interpretation: Performing Lab:[facility], [address] [place] [address] Notes/Report: Hold Lav - Possible Hematology SEE NOTE Specimen will be held untested for 8 hours. Call Hematology if testing is desired. Prothrombin Time INR Reviewed date:01/10/2024 09:47:57 AM Interpretation: Performing Lab:[facility], [address] [place] [address] Notes/Report: Prothrombin Time 11.5 10.9-12.4 SEC INTERNATIONAL [...] Drip Reviewed date:01/10/2024 09:47:57 AM Interpretation: Performing Lab:[facility], [address] [place] [phone] Notes/Report: PTT Heparin Drip 28.1 53-77.9 SEC For information regarding the monitoring of heparin therapy, please refer to Pharmacy. Basic Metabolic Panel Reviewed date:01/10/2024 09:47:57 AM Interpretation: Performing Lab:[facility], [address] [place] [address] Notes/Report: Sodium 136 135-145 mmol/L Potassium 4.5 [...] Phosphorus Reviewed date:01/10/2024 09:47:57 AM Interpretation: Performing Lab:[facility], [address] [place] [address] Notes/Report: Phosphorus 4.0 2.7-4.5 mg/dL Magnesium Reviewed date:01/10/2024 09:47:57 AM Interpretation: Performing Lab:[facility], [address] [place] [phone] Notes/Report: Magnesium 1.9 1.6-2.6 mg/dL Albumin Level Reviewed date:01/10/2024 09:47:57 AM Interpretation: Performing Lab:[facility], [address] [place] [address] Notes/Report: Albumin Level 3.2 3.5-5.0 g/dL SLIDE REVIEW Reviewed date:01/10/2024 09:47:57 AM Interpretation: Performing Lab:[facility], [address] [place] [phone] Notes/Report: SLIDE REVIEW VERIFIED Complete Blood Count Auto Di ff Reviewed date:01/10/2024 09:47:57 AM Interpretation: Performing Lab:[facility], [address] [place] [address] Notes/Report: White Blood Count 10.8 4.8-10.8 X10*3/uL [...] Drip Reviewed date:01/10/2024 09:47:57 AM Interpretation: Performing Lab:[facility], [address] [place] [phone] Notes/Report: PTT Heparin Drip 34.2 53-77.9 SEC For information regarding the monitoring of heparin therapy, please refer to Pharmacy. Complete Blood Count Auto Di ff Reviewed date:01/10/2024 09:47:57 AM Interpretation: Performing Lab:[facility], [address] [place] [phone] Notes/Report: White Blood Count 8.4 4.8-10.8 X10*3/uL [...] Panel Reviewed date:01/10/2024 09:47:57 AM Interpretation: Performing Lab:[facility], [address] [place] [phone] Notes/Report: Sodium 135 135-145 mmol/L Potassium 4.5 [...] Phosphorus Reviewed date:01/10/2024 09:47:57 AM Interpretation: Performing Lab:[facility], [address] [place] [phone] Notes/Report: Phosphorus 3.0 2.7-4.5 mg/dL Magnesium Reviewed date:01/10/2024 09:47:57 AM Interpretation: Performing Lab:[facility], [address] [place] [phone] Notes/Report: Magnesium 2.2 1.6-2.6 mg/dL PTT Heparin Drip Reviewed date:01/10/2024 09:47:57 AM Interpretation: Performing Lab:[facility], [address] [place] [phone] Notes/Report: PTT Heparin Drip 55.2 53-77.9 SEC For information regarding the monitoring of heparin therapy, please refer to Pharmacy. Complete Blood Count Auto Di ff Reviewed date:01/10/2024 09:47:57 AM Interpretation: Performing Lab:[facility], [address] [place] [phone] Notes/Report: White Blood Count 9.2 4.8-10.8 X10*3/uL [...] Hematocrit Reviewed date:01/11/2024 01:49:27 PM Interpretation: Performing Lab:[facility], [address] [place] [address] Notes/Report: Hemoglobin 3.3 14.0-18.0 g/dl Results of HGB called to and read back by JONAS on 01/10/24 at 1959 by BORIS. Hematocrit 9.9 42.0-52.0 % Results of HCT called to and read back by JONAS on 01/10/24 at 2001 by BORIS. Pathologist Review - CBC Reviewed date:01/11/2024 01:49:26 PM Interpretation: Performing Lab:[facility], [address] [place] [phone] Notes/Report: Pathologist Review - CBC SEE NOTE Normochromic normocytic anemia. - Javi Farias M.D. Pathology Prothrombin Time INR Reviewed date:01/10/2024 09:47:57 AM Interpretation: Performing Lab:[facility], [address] [place] [phone] Notes/Report: Prothrombin Time 12.1 10.9-12.4 SEC INTERNATIONAL [...] Drip Reviewed date:01/10/2024 09:47:57 AM Interpretation: Performing Lab:[facility], [address] [place] [phone] Notes/Report: PTT Heparin Drip 44.5 53-77.9 SEC For information regarding the monitoring of heparin therapy, please refer to Pharmacy. Comprehensive Met. Panel Reviewed date:01/11/2024 01:49:27 PM Interpretation: Performing Lab:[facility], [address] [place] [phone] Notes/Report: Sodium 135 135-145 mmol/L Potassium 4.9 [...] Panel Reviewed date:01/10/2024 09:47:57 AM Interpretation: Performing Lab:[facility], [address] [place] [phone] Notes/Report: Sodium 136 135-145 mmol/L Potassium 4.1 [...] Acid Reviewed date:01/11/2024 01:49:27 PM Interpretation: Performing Lab:[address] [address] Notes/Report: Lactic Acid 7.8 0.5-2.0 mmol/L Critical value for test(s): LACTA Results called to and read back by:VIKRAM Person calling: MARGIEF Date:01-10-2024 Time:2121 Phosphorus Reviewed date:01/10/2024 09:47:57 AM Interpretation: Performing Lab:[address] [phone] Notes/Report: Phosphorus 2.8 2.7-4.5 mg/dL Magnesium Reviewed date:01/10/2024 09:47:57 AM Interpretation: Performing Lab:[address] [phone] Notes/Report: Magnesium 2.0 1.6-2.6 mg/dL Albumin Level Reviewed date:01/10/2024 09:47:57 AM Interpretation: Performing Lab:[address] [phone] Notes/Report: Albumin Level 3.5 3.5-5.0 g/dL Lactic Acid-LAB USE ONLY Reviewed date:01/11/2024 01:49:27 PM Interpretation: Performing Lab:[address] [phone] Notes/Report: Lactic Acid-LAB USE ONLY 1.9 0.5-2.0 mmol/L Venous Blood Gases - POC Reviewed date:01/11/2024 01:49:27 PM Interpretation: Performing Lab:[address] [address] Notes/Report: VBG pH 7.42 7.32-7.43 METER #: [id number] 0250C VBG pCO2 25 METER #: [id number] 0250C VBG pO2 76 METER #: [id number] 0250C VBG Base Excess -6.7 METER #: [id number] VBG HCO3 16 22-26 mmol/L METER #: [id number] 0250C VBG O2 % Saturation TNP Hold Green Gel Reviewed date:01/11/2024 01:49:27 PM Interpretation: Performing Lab:[address] [address] Notes/Report: Hold Green Gel See Note Specimen held untested for 24 hours; Call to request Chemistry testing. CT abdomen pelvis w con Reviewed date:01/11/2024 01:49:27 PM Interpretation: Performing Lab: Notes/Report: [address] [address] [address] Scan Report Signed Patient: Zan Encinas MR#: [id number] : 1960 Acct:[id number] Age/Sex: 63 / M ADM Date: 01/07/24 Loc: [facility] 255-[address]: Bimal Knott MD Ordering Physician: Som Vela NP Date of Service: 01/10/24 Procedure(s): CT abdomen pelvis w IV con Accession Number(s): [id number] cc: Quinton Callahan MD; Som Vela NP [...] by: Jarret Ferrara MD 01/10/2024 10:00 PM [facility] Dictated By: Jarret Ferrara MD Signed By: <Electronically signed by Jarret Ferrara MD in [place]> 01/10/242199 DD/ 21 TD/TT: 01/10/242021 Direct Marketing Intern: [place] [address] CT Scan Report Signed Patient: Zan Encinas MR#: [id number] : 1960 Acct:[id number] Age/Sex: 63 / M ADM Date: 01/07/24 Loc: .ICU 255-[address]: Bimal Knott MD Ordering Physician: Som Vela NP Date of Service: 01/10/24 Procedure(s): CT abd omen pelvis w IV con Accession Number(s): [id number] cc: Quinton Callahan MD; Som Vela NP [...] by: Jarret Ferrara MD 01/10/2024 10:00 PM [facility] Dictated By: Jarret Ferrara MD Signed By: <Electronically signed by Jarret Ferrara MD in OV> 01/10/242199 DD/ 21 TD/TT: 01/10/242021 Direct Marketing Intern: PTT Heparin Drip Reviewed date:01/11/2024 01:49:27 PM Interpretation: Performing Lab:[facility], [address] [place] [phone] Notes/Report: PTT Heparin Drip 80.2 53-77.9 SEC For information regarding the monitoring of heparin therapy, please refer to Pharmacy. PTT Heparin Drip Reviewed date:01/11/2024 01:49:27 PM Interpretation: Performing Lab:[facility], [address] [place] [phone] Notes/Report: PTT Heparin Drip 66.0 53-77.9 SEC For information regarding the monitoring of heparin therapy, please refer to Pharmacy. Complete Blood Count Auto Di ff Reviewed date:01/11/2024 01:49:26 PM Interpretation: Performing Lab:[facility], [address] [place] [phone] Notes/Report: White Blood Count 17.6 4.8-10.8 X10*3/uL [...] Diff Reviewed date:01/12/2024 07:43:31 AM Interpretation: Performing Lab:[facility], [address] [place] [phone] Notes/Report: White Blood Count 12.3 4.8-10.8 X10*3/uL [...] ff Reviewed date:01/11/2024 01:49:26 PM Interpretation: Performing Lab:[facility], [address] [place] [phone] Notes/Report: White Blood Count 18.2 4.8-10.8 X10*3/uL [...] Panel Reviewed date:01/11/2024 01:49:26 PM Interpretation: Performing Lab:[facility], [address] [place] [phone] Notes/Report: Sodium 135 135-145 mmol/L Potassium 4.6 [...] Phosphorus Reviewed date:01/11/2024 01:49:26 PM Interpretation: Performing Lab:[facility], [address] [place] [phone] Notes/Report: Phosphorus 4.3 2.7-4.5 mg/dL Magnesium Reviewed date:01/11/2024 01:49:26 PM Interpretation: Performing Lab:[facility], [address] [place] [phone] Notes/Report: Magnesium 2.2 1.6-2.6 mg/dL Albumin Level Reviewed date:01/11/2024 01:49:26 PM Interpretation: Performing Lab:[facility], [address] [place] [phone] Notes/Report: Albumin Level 3.6 3.5-5.0 g/dL SLIDE REVIEW Reviewed date:01/11/2024 01:49:26 PM Interpretation: Performing Lab:[facility], [address] [place] [phone] Notes/Report: SLIDE REVIEW VERIFIED Venous Blood Gases - POC Reviewed date:01/11/2024 01:49:26 PM Interpretation: Performing Lab:[facility], [address] [place] [phone] Notes/Report: VBG pH 7.49 7.32-7.43 METER #: [id number] additional_comment: Jeovany aditya elva sauecdo VBG pCO2 35 METER #: [id number] additional_comment: Jeovany aditya elva henriquemarek VBG pO2 57 METER #: [id number] additional_comment: Cb aditya elva southrimichaela VBG Base Excess 4.0 METER #: [id number] additional_comment: Jeovany saucedo VBG HCO3 27 22-26 mmol/L METER #: [id number] additional_comment: Jeovany southriangelac VBG O2 % Saturation 92.0 METER #: [id number] additional_comment: Jeovany southrimichaela Venous Blood Gases - POC Reviewed date:01/11/2024 01:49:26 PM Interpretation: Performing Lab:[address] [phone] Notes/Report: VBG pH 7.42 7.32-7.43 METER #: [id number] additional_comment: Jeovany stevenson henrimichaela VBG pCO2 42 METER #: [id number] additional_comment: Jeovany stevenson henriangelac VBG pO2 35 METER #: [id number] additional_comment: Jeovany saucedo VBG Base Excess 3.7 METER #: [id number] additional_comment: Jeovany stevenson henluz VBG HCO3 28 22-26 mmol/L METER #: [id number] additional_comment: Jeovany saucedo VBG O2 % Saturation 62.0 METER #: [id number] additional_comment: Jeovany stevenson henrimichazc Complete Blood Count Auto Di ff Reviewed date:01/11/2024 01:49:26 PM Interpretation: Performing Lab:[address] [phone] Notes/Report: White Blood Count 14.9 4.8-10.8 X10*3/uL [...] ff Reviewed date:01/11/2024 08:19:34 PM Interpretation: Performing Lab:[facility], [address] [place] [phone] Notes/Report: White Blood Count 14.3 4.8-10.8 X10*3/uL [...] REVIEW Reviewed date:01/11/2024 08:19:34 PM Interpretation: Performing Lab:[facility], [address] [place] [phone] Notes/Report: SLIDE REVIEW VERIFIED Basic Metabolic Panel Reviewed date:01/12/2024 07:43:31 AM Interpretation: Performing Lab:[facility], [address] [place] [phone] Notes/Report: Sodium 133 135-145 mmol/L Potassium 4.0 [...] Phosphorus Reviewed date:01/12/2024 07:43:31 AM Interpretation: Performing Lab:[facility], [address] [place] [phone] Notes/Report: Phosphorus 2.7 2.7-4.5 mg/dL Magnesium Reviewed date:01/12/2024 07:43:31 AM Interpretation: Performing Lab:[facility], [address] [place] [phone] Notes/Report: Magnesium 2.4 1.6-2.6 mg/dL Complete Blood Count no Diff Reviewed date:01/13/2024 07:58:52 PM Interpretation: Performing Lab:[facility], [address] [place] [phone] Notes/Report: White Blood Count 11.9 4.8-10.8 X10*3/uL [...] ff Reviewed date:01/12/2024 07:43:31 AM Interpretation: Performing Lab:[facility], [address] [place] [phone] Notes/Report: White Blood Count 11.0 4.8-10.8 X10*3/uL [...] Panel Reviewed date:01/12/2024 07:43:31 AM Interpretation: Performing Lab:[facility], [address] [place] [address] Notes/Report: Sodium 139 135-145 mmol/L Potassium 3.9 [...] Phosphorus Reviewed date:01/12/2024 07:43:31 AM Interpretation: Performing Lab:[facility], [address] [place] [phone] Notes/Report: Phosphorus 2.8 2.7-4.5 mg/dL Magnesium Reviewed date:01/12/2024 07:43:31 AM Interpretation: Performing Lab:[address] [address] Notes/Report: Magnesium 2.3 1.6-2.6 mg/dL SLIDE REVIEW Reviewed date:01/12/2024 07:43:31 AM Interpretation: Performing Lab:[facility], [address] [place] [phone] Notes/Report: SLIDE REVIEW VERIFIED Venous Blood Gases - POC Reviewed date:01/12/2024 07:43:31 AM Interpretation: Performing Lab:[address] [phone] Notes/Report: VBG pH 7.41 7.32-7.43 METER #: [id number] additional_comment: Jeovany aguilarbb henric VBG pCO2 47 METER #: [id number] additional_comment: Jeovany burgess ctrbb henric VBG pO2 34 METER #: [id number] additional_comment: Cb aditya ctrbb henric VBG Base Excess 5.9 METER #: [id number] additional_comment: Cb aditya aguilarbb henric VBG HCO3 31 22-26 mmol/L METER #: [id number] additional_comment: Cb aditya ctrbb henric VBG O2 % Saturation 56.0 METER #: [id number] additional_comment: Jeovany burgess ctrbb henric Complete Blood Count Auto Di ff Reviewed date:01/12/2024 07:43:31 AM Interpretation: Performing Lab:[facility], [address] [place] [phone] Notes/Report: White Blood Count 10.7 4.8-10.8 X10*3/uL [...] ff Reviewed date:01/13/2024 07:58:52 PM Interpretation: Performing Lab:[facility], [address] [place] [phone] Notes/Report: White Blood Count 11.2 4.8-10.8 X10*3/uL [...] Diff Reviewed date:01/13/2024 07:58:52 PM Interpretation: Performing Lab:[facility], [address] [place] [phone] Notes/Report: White Blood Count 12.6 4.8-10.8 X10*3/uL [...] ff Reviewed date:01/13/2024 07:58:52 PM Interpretation: Performing Lab:[facility], [address] [place] [phone] Notes/Report: White Blood Count 11.1 4.8-10.8 X10*3/uL [...] Panel Reviewed date:01/13/2024 07:58:52 PM Interpretation: Performing Lab:[facility], [address] [place] [phone] Notes/Report: Sodium 137 135-145 mmol/L Potassium 3.8 [...] Phosphorus Reviewed date:01/13/2024 07:58:52 PM Interpretation: Performing Lab:[facility], [address] [place] [phone] Notes/Report: Phosphorus 3.0 2.7-4.5 mg/dL Magnesium Reviewed date:01/13/2024 07:58:52 PM Interpretation: Performing Lab:[facility], [address] [place] [phone] Notes/Report: Magnesium 2.3 1.6-2.6 mg/dL Albumin Level Reviewed date:01/13/2024 07:58:52 PM Interpretation: Performing Lab:[facility], [address] [place] [phone] Notes/Report: Albumin Level 3.5 3.5-5.0 g/dL SLIDE REVIEW Reviewed date:01/13/2024 07:58:52 PM Interpretation: Performing Lab:[facility], [address] [place] [phone] Notes/Report: SLIDE REVIEW VERIFIED Venous Blood Gases - POC Reviewed date:01/13/2024 07:58:52 PM Interpretation: Performing Lab:[facility], [address] [place] [phone] Notes/Report: VBG pH 7.46 7.32-7.43 METER #: [id number] additional_comment: Jeovany stevenson henric VBG pCO2 37 METER #: [id number] additional_comment: Jeovany aguilarbb henric VBG pO2 55 METER #: [id number] additional_comment: Jeovany aguilarbb henric VBG Base Excess 3.2 METER #: [id number] additional_comment: Jeovany aguilarbb henric VBG HCO3 27 22-26 mmol/L METER #: [id number] additional_comment: Jeovany aguilarbb henric VBG O2 % Saturation 87.0 METER #: [id number] additional_comment: Jeovany aguilarbb henric Complete Blood Count Auto Di ff Reviewed date:01/13/2024 07:58:52 PM Interpretation: Performing Lab:[facility], [address] [place] [phone] Notes/Report: White Blood Count 12.6 4.8-10.8 X10*3/uL [...] CO RRECTED REPORT Complete Blood Count Auto Darlyn ff Reviewed date:01/15/2024 06:02:02 AM Interpretation: Performing Lab:[facility], [address] [place] [phone] Notes/Report: White Blood Count 13.1 4.8-10.8 X10*3/uL [...] ff Reviewed date:01/15/2024 06:02:02 AM Interpretation: Performing Lab:[facility], [address] [place] [phone] Notes/Report: White Blood Count 12.1 4.8-10.8 X10*3/uL [...] Hematocrit Reviewed date:01/15/2024 06:02:02 AM Interpretation: Performing Lab:[facility], [address] [place] [phone] Notes/Report: Hemoglobin 7.9 14.0-18.0 g/dl Hematocrit 23.5 42.0-52.0 % Basic Metabolic Panel Reviewed date:01/15/2024 06:02:02 AM Interpretation: Performing Lab:[facility], [address] [place] [phone] Notes/Report: Sodium 136 135-145 mmol/L Potassium 3.8 [...] Phosphorus Reviewed date:01/15/2024 06:02:02 AM Interpretation: Performing Lab:[facility], [address] [place] [phone] Notes/Report: Phosphorus 2.8 2.7-4.5 mg/dL Magnesium Reviewed date:01/15/2024 06:02:02 AM Interpretation: Performing Lab:[facility], [address] [place] [phone] Notes/Report: Magnesium 2.2 1.6-2.6 mg/dL Albumin Level Reviewed date:01/15/2024 06:02:02 AM Interpretation: Performing Lab:[facility], [address] [place] [address] Notes/Report: Albumin Level 3.4 3.5-5.0 g/dL SLIDE REVIEW Reviewed date:01/15/2024 06:02:02 AM Interpretation: Performing Lab:[facility], [address] [place] [phone] Notes/Report: SLIDE REVIEW VERIFIED Complete Blood Count no Diff Reviewed date:01/16/2024 08:51:12 AM Interpretation: Performing Lab:[facility], [address] [place] [phone] Notes/Report: White Blood Count 12.7 4.8-10.8 X10*3/uL [...] Diff Reviewed date:01/16/2024 08:51:12 AM Interpretation: Performing Lab:[facility], [address] [place] [address] Notes/Report: White Blood Count 9.9 4.8-10.8 X10*3/uL [...] Panel Reviewed date:01/17/2024 05:05:01 AM Interpretation: Performing Lab:[address] [address] Notes/Report: Sodium 135 135-145 mmol/L Potassium 4.2 [...] Magnesium Reviewed date:01/17/2024 05:05:01 AM Interpretation: Performing Lab:[address] [address] Notes/Report: Magnesium 2.3 1.6-2.6 mg/dL Complete Blood Count Auto Di ff Reviewed date:01/18/2024 08:33:04 PM Interpretation: Performing Lab:[address] [address] Notes/Report: White Blood Count 12.0 4.8-10.8 X10*3/uL [...] te Reviewed date:01/18/2024 08:33:04 PM Interpretation: Performing Lab:[address] [phone] Notes/Report: Erythrocyte Sedimentation Rate 92 0-15 MM/HR Patients with polycythemia and many hemoglobin abnormalities may have depressed sed rates whereas patients with anemia may have elevated sed rates. Prothrombin Time INR Reviewed date:01/18/2024 08:33:04 PM Interpretation: Performing Lab:[address] [phone] Notes/Report: Prothrombin Time 13.4 10.9-12.4 SEC INTERNATIONAL [...] Panel Reviewed date:01/18/2024 08:33:04 PM Interpretation: Performing Lab:[facility], [address] [place] [phone] Notes/Report: Sodium 134 135-145 mmol/L Potassium 4.2 [...] Acid Reviewed date:01/18/2024 08:33:04 PM Interpretation: Performing Lab:[facility], [address] [place] [phone] Notes/Report: Lactic Acid 1.3 0.5-2.0 mmol/L C Reactive Protein Reviewed date:01/18/2024 08:33:04 PM Interpretation: Performing Lab:[facility], [address] [place] [address] Notes/Report: C Reactive Protein 14.10 < or = 0.50 mg/dL Lipase Reviewed date:01/18/2024 08:33:04 PM Interpretation: Performing Lab:[facility], [address] [place] [address] Notes/Report: Lipase 24 8-78 U/L SLIDE REVIEW Reviewed date:01/18/2024 08:33:04 PM Interpretation: Performing Lab:[facility], [address] [place] [phone] Notes/Report: SLIDE REVIEW VERIFIED Blood Culture (First) Reviewed date:01/24/2024 07:41:27 AM Interpretation: Performing Lab:[facility], [address] [place] [address] Notes/Report: Blood Culture (First) No growth after 5 days. Blood Culture (Second) Reviewed date:01/24/2024 07:41:27 AM Interpretation: Performing Lab:[facility], [address] [place] [phone] Notes/Report: Blood Culture (Second) No growth after 5 days. US arterial duplex LE RT Reviewed date:01/21/2024 07:35:28 AM Interpretation: Performing Lab: Notes/Report: [address] [place] [address] Ultrasound Report Signed with Addenda Patient: Zan Encinas MR#: [id number] : 1960 Acct:[id number] Age/Sex: 63 / M ADM Date: 01/18/24 Loc: .ED Attending Dr: Ordering Physician: Yuriy Dunbar Date of Service: 01/18/24 Procedure(s): US arterial duplex LE RT Accession Number(s): [id number] cc: Quinton Callahan MD; Yuriy Dunbar ADDENDUM ADDENDUM #1 Findings were communicated by telephone with Dr. Gerard by Dr. Zarate at 2034 hours. Electronically signed by: Placido Zarate MD 01/18/2024 08:41 PM [facility] Addendum Dictated By: Yuriy Zarate MD Addendum [...] in OV> 01/18/242032 DD/ 02 TD/TT: 01/18/241505 Direct Marketing Intern: BLANCA [place] [address] Ultrasound Report Signed with Addenda Patient: Zan Encinas MR#: [id number] : 1960 Acct:[id number] Age/Sex: 63 / M ADM Date: 01/18/24 Loc: .ED Attending Dr: Ordering Physician: Yuriy Dunbar Date of Service: 01/18/24 Procedure(s): US arterial duplex LE RT Accession Number(s): [id number] cc: Quinton Callahan MD; Yuriy Dunbar ADDENDUM ADDENDUM #1 Findings were communicated by telephone with Dr. Gerard by Dr. Zarate at 2034 hours. Electronically ivania d by: Placido Zarate [...] in OV> 01/18/242032 DD/ 02 TD/TT: 01/18/241505 Direct Marketing Intern: BLANCA XR foot RT min 3V Reviewed date:01/18/2024 08:33:04 PM Interpretation: Performing Lab: Notes/Report: [address] [address] XRay Report Signed Patient: Zan Encinas MR#: [id number] : 1960 Acct:[id number] Age/Sex: 63 / M ADM Date: 01/18/24 Loc: .ED Attending Dr: Ordering Physician: Yuriy Dunbar Date of Service: 01/18/24 Procedure(s): XR foot RT min 3V Accession Number(s): [id number] cc: Quinton Callahan MD; Yuriy Dunbar EXAMINATION: [...] by: Kaushal Cohen MD 01/18/2024 04:19 PM [facility] Dictated By: Kaushal Cohen MD Signed By: <Electronically signed by Kaushal Cohen MD in OV> 01/18/24 1619 DD/ 1516 TD/TT: 01/18/24 1534 Direct Marketing Intern: MICHELA [place] [address] XRay Report Signed Patient: Zan Encinas MR#: [id number] : 1960 Acct:[id number] Age/Sex: 63 / M ADM Date: 01/18/24 Loc: HO.ED Attending Dr: Ordering Physician: Yuriy Dunbar Date of Service: 01/18/24 Procedure(s): XR chito t RT min 3V Accession Number(s): [id number] cc: Quinton Callahan MD; Yuriy Dunbar EXAMINATION: [...] would be recommended. Electronically ivania d by: Kaushal Cohen MD 01/18/2024 04:19 PM [facility] Dictated By: Kaushal Cohen MD Signed By: <Electronically signed by Kaushal Cohen MD in OV> 01/18/24 1619 DD/ 1516 TD/TT: 01/18/24 1534 Direct Marketing Intern: MICHELA Complete Blood Count no Diff Reviewed date:02/04/2024 11:35:53 AM Interpretation: Performing Lab:[facility], [address] [place] [phone] Notes/Report: White Blood Count 11.5 4.8-10.8 X10*3/uL [...] INR Reviewed date:02/04/2024 11:35:53 AM Interpretation: Performing Lab:[facility], [address] [place] [phone] Notes/Report: Prothrombin Time 13.0 10.9-12.4 SEC INTERNATIONAL [...] Time Reviewed date:02/04/2024 11:35:53 AM Interpretation: Performing Lab:[facility], [address] [place] [phone] Notes/Report: Partial Thromboplastin Time 33.9 26.0-36.8 SEC For information regarding the monitoring of direct thrombin inhibitors, please refer to Pharmacy. Basic Metabolic Panel Reviewed date:02/04/2024 11:35:53 AM Interpretation: Performing Lab:[facility], [address] [place] [phone] Notes/Report: Sodium 138 135-145 mmol/L Potassium 4.4 [...] Pathology Reviewed date:02/08/2024 08:35:16 AM Interpretation: Performing Lab:[facility], [address] [place] [phone] Notes/Report: ---- Name: Toney Encinas Age/Sex: 63/M : 1960 [facility]#: [id number] Unit#: [id number] Attend Dr: Bimal Knott MD Re02/04/24 Status : ADM IN Location: [facility] 364-1 Disch: ---- SPEC : [id number] RECD : 02/04/24 STATUS: YUSUF MATHUR NUM: [id number] FRANTZ: 02/04/24-[address]: Bimal Knott MD ENTERED: 02/04/24- 16 [...] organizing clot, involving the posterior tibial vessels (mailk re with focal osseous metaplasia) and anterior tibial vessels. Clinical History PVD Microscopic Description Microscopic sections reviewed. Material Received Right leg Gross Description Received fresh label ed ?right leg? is a right whhhp-uol-kajl amputation specimen which measures 34.0 cm in [...] No other erosions or ulcers are identified. Door Assembler sections are submitted labeled as follows: A1 and A2 sections f rom the proximal hallux; A3 distal phalangeal bone from the hallux, following decalcification; A4 anterior tibial vessels; A5 posterior tibial vessels; A6 a sample of maria g chase from the margin of resection. Cassettes A3 A4 and A5 are submitted following decalcification. CEDS CONTINUED ON NEXT PAGE ---- Name: HuangToney Age/Sex: 63/M : 1960 Unit#: [id number] Attend Dr: Bimal Knott MD Re02/04/24 Status : ADM IN Location: [facility] 364-1 Disch: ---- SPEC : [id number] RECD : 02/04/24 STATUS: YUSUF MATHUR NUM: [id number] FRANTZ: 02/04/[address] [facility] [address]: Bimal Knott MD ENTERED: 02/04/24- 16 SP TYPE: Surgical OTHR DR: Quinton Callahan MD ORDERED: Gross Micro L5 Copies To: Quinton Callahan MD [address] [facility] [place] [address] Bimal Knott MD [facility] [address] [place] [address] ---- Signed (signature on file) Val Cris 02/06/24 1550 ---- END OF REPORT Type and Screen Reviewed date:02/04/2024 11:35:53 AM Interpretation: Performing Lab:[facility], [address] [place] [phone] Notes/Report: Blood Type OP Antibody Screen NEGATIVE Complete Blood Count no Diff Reviewed date:02/08/2024 08:35:16 AM Interpretation: Performing Lab:[facility], [address] [place] [phone] Notes/Report: White Blood Count 9.4 4.8-10.8 X10*3/uL [...] ff Reviewed date:02/08/2024 08:35:16 AM Interpretation: Performing Lab:[facility], [address] [place] [phone] Notes/Report: White Blood Count 11.2 4.8-10.8 X10*3/uL [...] Panel Reviewed date:02/08/2024 08:35:16 AM Interpretation: Performing Lab:[facility], [address] [place] [phone] Notes/Report: Sodium 137 135-145 mmol/L Potassium 3.9 [...] REVIEW Reviewed date:02/08/2024 08:35:16 AM Interpretation: Performing Lab:[facility], [address] [place] [phone] Notes/Report: SLIDE REVIEW VERIFIED Complete Blood Count no Diff Reviewed date:02/08/2024 08:35:16 AM Interpretation: Performing Lab:[facility], [address] [place] [phone] Notes/Report: White Blood Count 9.3 4.8-10.8 X10*3/uL [...] Panel Reviewed date:02/08/2024 08:35:16 AM Interpretation: Performing Lab:[facility], [address] [place] [phone] Notes/Report: Sodium 136 135-145 mmol/L Potassium 3.8 [...] Level Reviewed date:02/08/2024 08:35:16 AM Interpretation: Performing Lab:[facility], [address] [place] [phone] Notes/Report: Albumin Level 2.7 3.5-5.0 g/dL Complete Blood Count no Diff Reviewed date:02/08/2024 08:35:16 AM Interpretation: Performing Lab:[facility], [address] [place] [phone] Notes/Report: White Blood Count 9.0 4.8-10.8 X10*3/uL [...] Gel Reviewed date:02/08/2024 08:35:16 AM Interpretation: Performing Lab:[facility], [address] [place] [phone] Notes/Report: Hold Green Gel See Note Specimen held untested for 24 hours; Call to request Chemistry testing. Complete Blood Count Auto Di ff Reviewed date:05/27/2024 08:42:02 AM Interpretation: Performing Lab:[facility], [address] [place] [phone] Notes/Report: White Blood Count 10.9 4.8-10.8 X10*3/uL Red Blood Count 5.43 4.60-5.80 X10*6/uL Hemoglobin 16.0 14.0-18.0 g/dl Hematocrit 48.4 42.0-52.0 % Mean Corpuscular Volume 89.1 80.0-98.0 fL Mean Corpuscular Hemoglobin 29.5 27.0-33.0 pg Mean Corpuscular HGB Conc 33.1 31.0-36.0 g/dl Red Cell Distribution Width 14.1 11.0-16.0 % Platelet Count 327 160-400 X10*3/uL Mean Platelet Volume 10.0 9.4-12.4 fL Neutrophils Percent Auto 70.5 45-73 % Imm Gran Pct Auto 0.4 0.0-0.4 % Lymphocytes Percent Auto 16.8 20-40 % Monocytes Percent Auto 9.1 2-11 % Eosinophils Percent Auto 2.6 0-4 % Basophils Percent Auto 0.6 0-2 % NRBC Pct Auto 0.0 0.0-0.2 /100WBC Neutrophils Absolute Auto 7.7 2.0-8.3 x10*3/uL Imm Gran Abs Auto 0.04 0.00-0.03 X10*3/uL Lymphocytes Absolute Auto 1.8 1.2-4.9 X10*3/uL Monocytes Absolute Auto 1.0 0.1-1.2 X10*3/uL Eosinophils Absolute Auto 0.3 0.0-0.4 X10*3/uL Basophils Absolute Auto 0.1 0.0-0.2 X10*3/uL NRBC Abs Auto 0.000 0.0-0.012 X10*3/uL Erythrocyte Sedimentation Ra te Reviewed date:05/27/2024 08:42:02 AM Interpretation: Performing Lab:[facility], [address] [place] [id number] Notes/Report: Erythrocyte Sedimentation Rate 10 0-15 MM/HR Patients with polycythemia and many hemoglobin abnormalities may have depressed sed rates whereas patients with anemia may have elevated sed rates. Comprehensive Met. Panel Reviewed date:05/27/2024 08:42:02 AM Interpretation: Performing Lab:[facility], [address] [place] [id number] Notes/Report: Sodium 138 135-145 mmol/L Potassium 4.3 3.3-5.1 mmol/L Chloride 107 96-108 mmol/L Carbon Dioxide 21 22-29 mmol/L Anion Gap 14 12-20 Blood Urea Nitrogen 16 9-16 mg/dL Creatinine 0.80 0.5-1.4 mg/dL Creatinine Clr Calc Pharmacy 99.6 eGFR (calculated from the MDRD study equation) and eCrCl (calculated from the Cockcroft-Gault equation) are based on different parameters and may not yield comparable results. If eCrCl result is absurd, please check patient's height/weight. Estimated Glomerular Filt Rate > 60 Chronic Kidney Disease: Estimated GFR < 60 mL/min/1.73m2 Severe Kidney Disease: Estimated GFR < 15 mL/min/1.73m2 Glucose Random 94 60-115 mg/dL Calcium 9.1 8.4-10.2 mg/dL Bilirubin Total 0.4 0.0-1.0 mg/dL Aspartate Amino Transferase 23 5-37 U/L Alanine Aminotransferase 13 0-40 U/L Total Protein 6.5 6.5-8.0 g/dL Albumin Level 3.6 3.5-5.0 g/dL Alkaline Phosphatase 92 39-117 U/L Lactic Acid Reviewed date:05/27/2024 08:42:02 AM Interpretation: Performing Lab:[facility], [address] [place] [phone] Notes/Report: Lactic Acid 1.4 0.5-2.0 mmol/L C Reactive Protein Reviewed date:05/27/2024 08:42:02 AM Interpretation: Performing Lab:[facility], [address] [place] [phone] Notes/Report: C Reactive Protein 1.01 < or = 0.50 mg/dL Blood Culture (First) Reviewed date:06/07/2024 04:51:50 AM Interpretation: Performing Lab:[address] [phone] Notes/Report: Blood Culture (First) No growth after 5 days. Blood Culture (Second) Reviewed date:06/07/2024 04:51:50 AM Interpretation: Performing Lab:[address] [phone] Notes/Report: Blood Culture (Second) No growth after 5 days. XR knee RT 4V Reviewed date:05/27/2024 08:42:02 AM Interpretation: Performing Lab: Notes/Report: [address] [place] [address] XRay Report Signed Patient: Zan Encinas MR#: [id number] : 1960 Acct:[id number] Age/Sex: 64 / M ADM Date: 05/26/24 Loc: .ED Attending Dr: Ordering Physician: Gt Cruz Date of Service: 05/26/24 Procedure(s): XR knee RT 4V Accession Number(s): [id number] cc: Gt Cruz; Quinton Callahan MD EXAMINATION: XR KNEE, RIGHT CLINICAL INFORMATION: Right stump erythema/pus discharge COMPARISON: 10/01/2023. TECHNIQUE: Four views of the right knee. FINDINGS: There is mild generalized osteopenia. There has been a smfhl-lbl-xykm amputation. There are no permeative changes involving the osteotomy sites. There is soft tissue swelling and induration of the stump. There are surgical clips in the distal and medial soft tissues. There is a stent in the distal SFA. No joint effusion. Normal alignment of the knee joint. Preserved joint spaces. No fracture or dislocation. XR/XR knee RT 4V IMPRESSION: 1. Below the knee amputation without radiographic changes of osteomyelitis evident. 2. Osteopenia. 3. Stent in the SFA. 4. Soft edema of the distal stump. Electronically signed by: Alvarado Cortes MD 05/26/2024 03:32 PM EDT RP Dictated By: Alvarado Cortes MD Signed By: <Electronically signed by Alvarado Cortes MD in OV> 05/26/24 1532 DD/ 1452 TD/TT: 05/26/24 1510 Direct Marketing Intern: [place] [address] XRay Report Signed Patient: Zan Encinas MR#: [id number] : 1960 Acct:[id number] Age/Sex: 64 / M ADM Date: 05/26/24 Loc: .ED Attending Dr: Ordering Physician: Gt Cruz Date of Service: 05/26/24 Procedure(s): XR kne e RT 4V Accession Number(s): [id number] cc: Gt Cruz; Quinton Callahan MD EXAMINATION: XR KNEE, RIGHT CLINICAL INFORMATION: Right stump erythema /pus discharge COMPARISON: 10/01/2023. TECHNIQUE: Four views of the ri t knee. FINDINGS: There is mild generalized osteopenia. There has been a ovrxi-oye-iwpy amputation. There are no permeative changes involving th e osteotomy sites. There is soft tissue swelling and induration of th e stump. There are surgical clips in the distal and medial soft tissues. There is a stent in the distal SFA. No joint effusion. Normal alignment of the knee joint. Preserved joint spaces. No fracture or dislocation. X R/XR knee RT 4V IMPRESSION: 1. Below the knee amputation without radiographic changes of osteomyelitis evident. 2. Osteopenia. 3. Stent in the SFA. 4. Soft edema of the distal stump. Electronically ivania d by: Alvarado Cortes MD 05/26/2024 03:32 PM EDT RP Dictated By: Alvarado Cortes MD Signed By: <Electronically signed by Alvarado Cortes MD in OV> 05/26/24 1532 DD/ 1452 TD/TT: 05/26/24 1510 Direct Marketing Intern: Complete Blood Count Auto Di ff Reviewed date:05/27/2024 08:42:02 AM Interpretation: Performing Lab:[address] [phone] Notes/Report: White Blood Count 9.2 4.8-10.8 X10*3/uL Red Blood Count 5.17 4.60-5.80 X10*6/uL Hemoglobin 15.4 14.0-18.0 g/dl Hematocrit 46.3 42.0-52.0 % Mean Corpuscular Volume 89.6 80.0-98.0 fL Mean Corpuscular Hemoglobin 29.8 27.0-33.0 pg Mean Corpuscular HGB Conc 33.3 31.0-36.0 g/dl Red Cell Distribution Width 13.8 11.0-16.0 % Platelet Count 286 160-400 X10*3/uL Mean Platelet Volume 9.6 9.4-12.4 fL Neutrophils Percent Auto 65.6 45-73 % Imm Gran Pct Auto 0.4 0.0-0.4 % Lymphocytes Percent Auto 19.0 20-40 % Monocytes Percent Auto 11.2 2-11 % Eosinophils Percent Auto 2.9 0-4 % Basophils Percent Auto 0.9 0-2 % NRBC Pct Auto 0.0 0.0-0.2 /100WBC Neutrophils Absolute Auto 6.0 2.0-8.3 x10*3/uL Imm Gran Abs Auto 0.04 0.00-0.03 X10*3/uL Lymphocytes Absolute Auto 1.8 1.2-4.9 X10*3/uL Monocytes Absolute Auto 1.0 0.1-1.2 X10*3/uL Eosinophils Absolute Auto 0.3 0.0-0.4 X10*3/uL Basophils Absolute Auto 0.1 0.0-0.2 X10*3/uL NRBC Abs Auto 0.000 0.0-0.012 X10*3/uL Basic Metabolic Panel Reviewed date:05/27/2024 08:42:02 AM Interpretation: Performing Lab:[facility], [address] [place] [phone] Notes/Report: Sodium 140 135-145 mmol/L Potassium 3.8 3.3-5.1 mmol/L Chloride 107 96-108 mmol/L Carbon Dioxide 27 22-29 mmol/L Anion Gap 10 12-20 Blood Urea Nitrogen 11 9-16 mg/dL Creatinine 0.80 0.5-1.4 mg/dL Creatinine Clr Calc Pharmacy 99.6 eGFR (calculated from the MDRD study equation) [...] 102 60-115 mg/dL Calcium 9.0 8.4-10.2 mg/dL Creatinine Reviewed date:05/27/2024 08:42:02 AM Interpretation: Performing Lab:[facility], [address] [place] [phone] Notes/Report: Creatinine 0.84 0.5-1.4 mg/dL Creatinine Clr Calc Pharmacy 94.9 eGFR (calculated from the MDRD study equation) and eCrCl (calculated from the Cockcroft-Gault equation) are based on different parameters and may not yield comparable results. If eCrCl result is absurd, please check patient's height/weight. Estimated Glomerular Filt Rate > 60 Chronic Kidney Disease: Estimated GFR < 60 mL/min/1.73m2 Severe Kidney Disease: Estimated GFR < 15 mL/min/1.73m2 Vancomycin Random Reviewed date:05/28/2024 04:55:44 AM Interpretation: Performing Lab:[facility], [address] [place] [phone] Notes/Report: Vancomycin Random 13.2 15-20 mcg/mL MR knee RT wo/w con Reviewed date:05/28/2024 04:55:44 AM Interpretation: Performing Lab: Notes/Report: [address] [address] Magnetic Resonance Report Signed Patient: Zan Encinas MR#: [id number] : 1960 Acct:[id number] Age/Sex: 64 / M ADM Date: 05/26/24 Loc: .S3 376-[address]: Luciano Mari MD Ordering Physician: Keith Menendez MD Date of Service: 05/27/24 Procedure(s): MR knee RT wo/w con Accession Number(s): [id number] cc: Quinton Callahan MD; Keith Menendez MD EXAMINATION: MR KNEE WITHOUT AND WITH CONTRAST, RIGHT CLINICAL INFORMATION: BKA, redness, discharge, rule out osteomyelitis. COMPARISON: No prior MRI. Correlation made with plain films right knee/leg 05/26/2024. TECHNIQUE: MRI of the right knee/leg was performed before and after the intravenous administration of 8.5 mL Gadavist on a high-field 1.5 Dior Siemens scanner. FINDINGS: There has been a below the knee amputation. There has been muscle flap fold over repair of the distal osteotomy. There is patchy bone marrow edema, low T1 signal, and enhancement extending from the edge of the osteotomy site approximately 2.8 cm caudally. Findings are consistent with osteomyelitis of the distal bony stump. There is a thin tract of enhancement and edema/fluid extending from the osteotomy site to the most anterior aspect of the stump, measuring approximately 4.3 cm in AP, by 4.4 cm in transverse, by 1.0 cm in craniocaudad dimension. This is consistent with soft tissue infection, likely self decompressing. There are susceptibility foci in the soft tissues abutting the distal osteotomy site, consistent with surgical clips. Examination not tailored for evaluation of meniscal and ligamentous structures although grossly the cruciate ligament, medial and lateral meniscus, MCL, LCL, and iliotibial band appear intact. There is no additional soft tissue evidence of abscess or drainable collection. There is diffuse subcutaneous edema present. MR/MR knee RT wo/w con IMPRESSION: 1. Findings consistent with osteomyelitis of the distal osseous stump, with bony signal changes/enhancement involving the entire distal osteotomy site and extending approximately 2.8 cm cephalad. 2. There is a tract of enhancement and edema/fluid extending from the distal bony osteotomy site, into the ventral soft tissues at the margin of the flap repair, likely a self decompressing soft tissue infection. 3. No additional drainable abscess or fluid collection. 4. Diffuse subcutaneous edema. Electronically signed by: Alvarado Cortes MD 05/27/2024 04:26 PM EDT RP Dictated By: Alvarado Cortes MD Signed By: <Electronically signed by Alvarado Cortes MD in OV> 05/27/24 1626 DD/ 1527 TD/TT: 05/27/24 1549 Direct Marketing Intern: [place] [address] Magnetic Resonance Report Signed Patient: Zan Encinas MR#: [id number] : 1960 Acct:[id number] Age/Sex: 64 / M ADM Date: 05/26/24 [facility]: Alfredo Mari MD Ordering Physician: Keith Menendez MD Date of Service: 05/27/24 Procedure(s): MR kngenevieve e RT wo/w con Accession Number(s): [id number] cc: Quinton Callahan MD; Keith Menendez MD EXAMINATION: MR KNEE WITHOUT AND WITH CONTRAST, RIGHT CLINICAL INFORMATION: BKA, redness, discha rge, rule out osteomyelitis. COMPARISON: No prior MRI. Correlation made with plain films right knee/leg 05/26/2024. TECHNIQUE: MRI of the right knee/leg was performed before and after the intravenous administration of 8.5 mL Gadavist on a high-field 1.5 Dior Siemens scanner. FINDINGS: There has been a bel ow the knee amputation. There has been muscle flap fold over repair of the distal osteotomy. There is patchy bone marrow edema, low T1 signal, and enhancement extending from the e dge of the osteotomy site approximately 2.8 cm caudally. Findings a re consistent with osteomyelitis of the distal bony stump. There is a thin trac t of enhancement and edema/fluid extending from the osteotomy site to th e most anterior aspect of the stump, measuring approximately 4.3 cm in AP, by 4.4 cm in transverse, by 1.0 cm in craniocaudad dimensi on. This is consistent with soft tissue infection, likely self decompressing. There are susceptibi lity foci in the soft tissues abutting the distal osteotomy site, consistent with surgical clips. Examination not tail ored for evaluation of meniscal and ligamentous structures although grossly the cruciate ligament, medial and lateral meniscus, MCL, LCL, and iliotibial band appear intact. There is no addition al soft tissue evidence of abscess or drainable collection. There is diffuse subcutaneous edema present. M R/MR knee RT wo/w con IMPRESSION: 1. Findings consiste nt with osteomyelitis of the distal osseous stump, with bony signal changes/enhancement involving the entire distal osteotomy site and extending approximately 2.8 cm cephalad. 2. There is a tract of enhancement and edema/fluid extending from the distal bony osteotom y site, into the ventral soft tissues at the margin of the flap repair, likely a self decompressing soft tissue infection. 3. No additional drainable abscess or fluid collection. 4. Diffuse subcutane ous edema. Electronically ivania d by: Alvarado Cortes MD 05/27/2024 04:26 PM EDT RP Dictated By: Alvarado Cortes MD Signed By: <Electronically signed by Alvarado Cortes MD in OV> 05/27/24 1626 DD/ 1527 TD/TT: 05/27/24 1549 Direct Marketing Intern: Creatinine Reviewed date:05/28/2024 02:19:09 PM Interpretation: Performing Lab:[address] [phone] Notes/Report: Creatinine 0.81 0.5-1.4 mg/dL Creatinine Clr Calc Pharmacy 98.4 eGFR (calculated from the MDRD study equation) and eCrCl (calculated from the Cockcroft-Gault equation) are based on different parameters and may not yield comparable results. If eCrCl result is absurd, please check patient's height/weight. Estimated Glomerular Filt Rate > 60 Chronic Kidney Disease: Estimated GFR < 60 mL/min/1.73m2 Severe Kidney Disease: Estimated GFR < 15 mL/min/1.73m2 Vancomycin Random Reviewed date:05/30/2024 07:30:54 PM Interpretation: Performing Lab:[facility], [address] [place] [phone] Notes/Report: Vancomycin Random 13.4 15-20 mcg/mL Hold Lav - Possible Hematolo gy Reviewed date:05/30/2024 07:30:54 PM Interpretation: Performing Lab:[facility], [address] [place] [phone] Notes/Report: Hold Lav - Possible Hematology SEE NOTE Specimen will be held untested for 8 hours. Call Hematology if testing is desired. Creatinine Reviewed date:05/30/2024 07:30:54 PM Interpretation: Performing Lab:[facility], [address] [place] [phone] Notes/Report: Creatinine 0.79 0.5-1.4 mg/dL Creatinine Clr Calc Pharmacy 100.9 eGFR (calculated from the MDRD study equation) and eCrCl (calculated from the Cockcroft-Gault equation) are based on different parameters and may not yield comparable results. If eCrCl result is absurd, please check patient's height/weight. Estimated Glomerular Filt Rate > 60 Chronic Kidney Disease: Estimated GFR < 60 mL/min/1.73m2 Severe Kidney Disease: Estimated GFR < 15 mL/min/1.73m2 Reason For Referral No Information Medications Medication SIG (Take, Route, Frequency, Duration) Notes Start Date End Date Status Pantoprazole Sodium 40 MG Take 2 tablets by mouth once daily Active Albuterol Sulfate HFA 108 (90 Base) MCG/ACT INHALE 2 PUFFS BY MOUTH EVERY 4 TO 6 HOURS NEEDED FOR SHORTNESS OF BREATH OR WHEEZING Inhalation Active Gabapentin 400 MG 1 capsule Orally fou r times a day 10/31/2023 Active Gabapentin 300 MG 1 capsule Orally fou r times a day for 30 days 06/12/2024 Active Atorvastatin Calcium 10 MG Take 1 tablet by mouth once daily Active Nystatin 653515 UNIT/GM 1 application Ex ternally Twice a day 12/21/2023 Active Metoprolol Succinate ER 25 MG 1 tablet Orally Once a day Active Eliquis 5 MG 1 Tablet Orally twic e a day Active ASA 1 tab Oral Active Tylenol 325 MG 1 tablet as needed O rally every 4 hrs Active ibuprofen 1 tab Oral Active Tamsulosin HCl 0.4 MG Take 2 capsules by mouth once daily Active Vancomycin HCl 10 GM Intravenous for 8 Days Active Breo Ellipta 200-25 MCG/ACT INHALE 1 PUF F BY MOUTH ONCE DAILY Inhalation Active Social History Tobacco Use: Social History [...] Problem Status W/U Status Risk Notes Problem 797912001 Overweight (E66.3) Active confirmed His body mass index is 29. We discussed diet and nutrition. I recommended aggressive weight loss and sodium restriction. Problem 379117368 Mixed hyperlipidemia (E78.2) Active confirmed A comprehensive laboratory database with a fasting lipid profile will be obtained. He was continued on his currrent meddications. Problem 58153643 Chronic obstructive pulmonary disease, unspecified COPD type (J44.9) Active confirmed He has resumed smoking 5 cigarettes per day. He was counseled about this and made aware of the smoking cessation programs in the area. Problem 97186493 Tobacco dependence (F17.200) Active confirmed I have counseled him about smoking cessation and offered to refer him to smoking cessation programs in the community. He said he would consider this and try to cut down. Problem Left bundle branch block (89073965) Left bundle branch block (I44.7) Active confirmed The architectural examiner's interpretation of the perfusion test was that the defect in the septum may be due to the bundle branch block. I will discuss this with cardiology. Problem 42896411 Hiatal hernia (K44.9) Active confirmed The symptoms of his esophageal reflux and hiatal hernia well controlled with current medications. No change in his regimen as needed. Problem 982552048 Peripheral arterial disease (I73.9) Active confirmed He [...] the leg down interarterial position. Problem Hoarseness (38430211) Hoarseness (R49.0) Active confirmed He will be referred to ENT for indirect laryngoscopy. Problem 6324545 Umbilical hernia without obstruction and without gangrene (K42.9) Active confirmed This is asymptomatic and requires no treatment at this time. Problem 197058974 Benign prostatic hyperplasia with lower urinary tract symptoms (N40.1) Active confirmed The tamsulosin was continued today. He will notify me if his symptoms worsen. He has had no retention. He has symptoms of prostatism. Problem 567166918 Acute right-sided low back pain with right-sided sciatica (M54.41) Active confirmed His back pain continues and I have increased the gabapentin. Problem 092862286 Palmer's esophagus determined by endoscopy (K22.70) Active confirmed He is due for an endoscopy and was referred back to his gastroenterolog ist, Dr. Quinton Campos. 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 Problem 26209828722929850 Carpal tunnel syndrome on both sides (G56.03) Active confirmed He has a history of carpal tunnel syndrome treated by Dr. Raphael. He is currently asymptomatic. Vital Signs Heart Rate 46 /min 06/12/2024 Temperature 98.6 degrees Fahrenheit 06/12/2024 Blood pressure diastolic 85 mm Hg 06/12/2024 Height 73 in 06/12/2024 Blood pressure systolic 148 mm Hg 06/12/2024 Weight 193 lbs 06/12/2024 BMI 25.46 kg/m2 06/12/2024 Encounters Encounter Location Date Provider Diagnosis Quinton Callahan III, MD [address] [place] [address] [place] [phone] 06/12/2024 Quinton Callahan Peripheral arterial disease I73.9 Quinton Callahan III, MD [address] [place] [address] [place] [phone] 06/13/2023 Quinton Callahan Peripheral arterial disease I73.9 ; Tobacco dependence F17.200 ; Overweight E66.3 ; Umbilical hernia without obstruction and without gangrene K42.9 ; Acute right-sided low back pain with right-sided sciatica M54.41 ; Chronic obstructive pulmonary disease, unspecified COPD type J44.9 and Palmer's esophagus determined by endoscopy K22.70 Quinton Callahan III, MD [address] [place] [address] [place] [id number] 07/09/2023 Quinton Callahan Peripheral arterial disease I73.9 ; Benign prostatic hyperplasia with lower urinary tract symptoms N40.1 ; Palmer's esophagus determined by endoscopy K22.70 ; Chronic obstructive pulmonary disease, unspecified COPD type J44.9 ; Hiatal hernia K44.9 ; Tobacco dependence F17.200 and Overweight E66.3 Quinton Callahan III, MD [address] [place] [address] [place] [id number] 07/24/2023 Quinton Callahan Peripheral arterial disease I73.9 ; Hiatal hernia K44.9 ; Splenic vein thrombosis I82.890 ; Palmer's esophagus determined by endoscopy K22.70 ; Benign prostatic hyperplasia with lower urinary tract symptoms N40.1 ; Tobacco dependence F17.200 ; Hoarseness R49.0 and Left bundle branch block I44.7 Quinton Callahan III, MD [address] [place] [address] [place] [id number] 08/08/2023 Quinton Callahan Peripheral arterial disease I73.9 ; Benign prostatic hyperplasia with lower urinary tract symptoms N40.1 ; Palmer's esophagus determined by endoscopy K22.70 ; Chronic obstructive pulmonary disease, unspecified COPD type J44.9 ; Tobacco dependence F17.200 and Overweight E66.3 Quinton Callahan III, MD [address] [place] [address] [place] [id number] 08/27/2023 Quinton Callahan Peripheral arterial disease I73.9 ; Benign prostatic hyperplasia with lower urinary tract symptoms N40.1 ; Palmer's esophagus determined by endoscopy K22.70 ; Chronic obstructive pulmonary disease, unspecified COPD type J44.9 ; Overweight E66.3 ; Tobacco dependence F17.200 and Mixed hyperlipidemia E78.2 Quinton Callahan III, MD [address] [place] [address] [place] [id number] 09/19/2023 Quinton Callahan Peripheral arterial disease I73.9 ; Open wound T14.8XXA ; Benign prostatic hyperplasia with lower urinary tract symptoms N40.1 ; Palmer's esophagus determined by endoscopy K22.70 ; Chronic obstructive pulmonary disease, unspecified COPD type J44.9 ; Tobacco dependence F17.200 and Mixed hyperlipidemia E78.2 Quinton Callahan III, MD [address] [place] [address] [place] [id number] 09/24/2023 Quinton Callahan Peripheral arterial disease I73.9 ; Edema of right lower extremity R60.0 ; Palmer's esophagus determined by endoscopy K22.70 ; Benign prostatic hyperplasia with lower urinary tract symptoms N40.1 ; Overweight E66.3 and Tobacco dependence F17.200 Quinton Callahan III, MD [address] [place] [address] [place] [id number] 10/15/2023 Quinton Callahan Peripheral arterial disease I73.9 ; Palmer's esophagus determined by endoscopy K22.70 ; Chronic obstructive pulmonary disease, unspecified COPD type J44.9 ; Tobacco dependence F17.200 and Mixed hyperlipidemia E78.2 Quinton Callahan III, MD [address] [place] [address] [place] [id number] 10/31/2023 Quinton Callahan Peripheral arterial disease I73.9 ; Benign prostatic hyperplasia with lower urinary tract symptoms N40.1 ; Palmer's esophagus determined by endoscopy K22.70 ; Chronic obstructive pulmonary disease, unspecified COPD type J44.9 ; Tobacco dependence F17.200 ; Mixed hyperlipidemia E78.2 ; Acute right-sided low back pain with right-sided sciatica M54.41 and Overweight E66.3 Quinton Callahan III, MD [address] [place] [address] [place] [id number] 12/28/2023 Quinton Callahan Peripheral arterial disease I73.9 ; Chronic obstructive pulmonary disease, unspecified COPD type J44.9 ; Benign prostatic hyperplasia with lower urinary tract symptoms N40.1 ; Palmer's esophagus determined by endoscopy K22.70 ; Hiatal hernia K44.9 ; Overweight E66.3 ; Tobacco dependence F17.200 and Mixed hyperlipidemia E78.2 Quinton Callahan III, MD [address] [place] [address] [place] [id number] 07/24/2023 Quinton Callahan III, MD [address] [place] [address] [place] [id number] 08/02/2023 Quinton Callahan III, MD [address] [facility] [id number] 08/09/2023 Quinton Callahan III, MD [address] [place] [address] [place] [id number] 08/16/2023 Quinton Callahan III, MD [address] [facility] [id number] 08/20/2023 Quinton Callahan III, MD [address] [facility] [id number] 11/27/2023 Quinton Callhaan III, MD [address] [place] [address] [place] [id number] 12/18/2023 Quinton Callahan III, MD [address] [place] [address] [place] [id number] 12/21/2023 Quinton Callahan III, MD [address] [place] [address] [place] [id number] 12/21/2023 Quinton Callahan III, MD [address] [place] [address] [place] [id number] 02/12/2024 Quinton Callahan III, MD [address] [place] [address] [place] [id number] 03/04/2024 Quinton Callahan III, MD [address] [place] [address] [place] [id number] 05/02/2024 Quinton Callahan III, MD [address] [place] [address] [place] [id number] 05/02/2024 Quinton Callahan Peripheral arterial disease I73.[address] [id number] 06/02/2024 Quinton Callahan Assessments Encounter Date Diagnosis (ICD Code) Assessment Notes Treat ment Notes Treatment Clinical Notes 06/12/2024 Peripheral arterial disease (ICD-10 - I73.9) 06/13/2023 Tobacco dependence (ICD-10 - F17.200) I [...] endoscopy and was referred back to his chief meter reader, Dr. Quinton Campos. 10/31/2023 Peripheral arterial disease [...] endoscopy and was referred back to his chief meter reader, Dr. Quinton Campos. 07/24/2023 Splenic vein thrombosis (ICD-10 - I82.890) There have been no further signs of thromboembolism. 08/08/2023 Palmer's esophagus determined by endoscopy (ICD-10 - K22.70) He is due for an endoscopy and was referred back to his chief meter reader, Dr. Quinton Campos. 08/27/2023 Palmer's esophagus determined by endoscopy (ICD-10 - K22.70) He is due for an endoscopy and was referred back to his chief meter reader, Dr. Quinton Campos. 09/19/2023 Benign prostatic hyperplasia with lower urinary tract symptoms (ICD-10 - N40.1) The tamsulosin was continued today. He will notify me if his symptoms worsen. He has had no retention. He has symptoms of prostatism. 09/24/2023 Palmer's esophagus determined by endoscopy (ICD-10 - K22.70) He is due for an endoscopy and was referred back to his chief meter reader, Dr. Quinton Campos. 10/15/2023 Chronic obstructive pulmonary disease, unspecified COPD type (ICD-10 - J44.9) He has resumed smoking 5 cigarettes per day. He was counseled about this and made aware of the smoking cessation programs in the area. 10/31/2023 Palmer's esophagus determined by endoscopy (ICD-10 - K22.70) He is due for an endoscopy and was referred back to his chief meter reader, Dr. Quinton Campos. 12/28/2023 Benign prostatic hyperplasia [...] endoscopy and was referred back to his chief meter reader, Dr. Quinton Campos. 08/08/2023 Chronic obstructive pulmonary [...] endoscopy and was referred back to his chief meter reader, Dr. Quinton Campos. 09/24/2023 Benign prostatic hyperplasia [...] smoking cessation programs in the area. 12/28/2023 Palmer's esophagus determined by endoscopy (ICD-10 - K22.70) He is due for an endoscopy and was referred back to his chief meter reader, Dr. Quinton Campos. 06/13/2023 Acute right-sided low [...] endoscopy and was referred back to his chief meter reader, Dr. Quinton Campos. 07/09/2023 Overweight (ICD-10 - [...] bundle branch block (ICD-10 - I44.7) The architectural examiner's interpretation of the perfusion test was that [...] 09/29/2019 Next Appt Details Provider Name:Quinton Callahan, 07/10/2024 11:45:00 AM, [address] [place] [address] [place], [address], Provider Name:Quinton Callahan, 10/15/2024 11:00:00 AM, [address] [place] [address] [address], [place], [address], Insurance Providers Payer Name Payer Address Payer Phone Subscriber Number Group Number Insured Name Patient Relationship to Insured Coverage Start Date Coverage End Date [employer] [address] [place] [phone] [id number] Zan Olivo Self - patient is the insured 4 MEDICARE NGS [address] [place] [phone] [id number] Zan Olivo Self - patient is the [...] right lower extremity 05/2019 upper endoscopy, [facility], Dr. Quinton Campos, Palmer's esophagus 2014 upper endoscopy and colonosc opy, [facility], Dr. 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
--- OUTSIDE RECORDS SUMMARY | 2024-06-12 15:47 | XMS_ITS | Patient Health Record ---
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 Name Role Phone Quinton Callahan MD Primary Care Provider Quinton Mao Unavailable [phone] Reason For Referral No Information Medications Medication [...] Problem Status W/U Status Risk Notes Problem [id number] Encounter for screening for malignant neoplasm of colon (Z12.11) Active confirmed Problem [id number] Palmer's esopha xu without dysplasia (K22.70) Active confirmed Problem [id number] Gastroesophageal reflux disease without esophagitis (K21.9) Active confirmed Encounters Encounter Location Date Provider Diagnosis [facility] [address] [place] [address] 08/14/2023 Quinton Campos Plan Of Treatment Future Test Test Name Order Date UPPER GI ENDOSCOPY 03/19/2013 UPPER GI ENDOSCOPY 06/11/2019 COLONOSCOPY 06/11/2019 Insurance Providers Payer Name Payer Address Payer Phone Subscriber Number Group Number Insured Name Patient Relationship to Insured Coverage Start Date Coverage End Date MEDICARE OF [place] [address] [facility] [address] [id number] JUAN FRANCISCO HOWELL Self - patient is the insured Medical (General) History Medical History History ICD Code Colonoscopy in 12/2009 neg e xcept for a hyperplastic polyp, diverticulosis, and internal hemmorhoids GERD with a small area of Ba rrett's esophagus--EGD in 12/2009-small HH-bx neg for dysplasia Splenic vein thrombosis in approx 1999-- had previously been on Coumadin Denies CO,DM,CVA,renal disease EGD 04/2013 with small area o f Palmer's, no dysplasia nor esophagitis; small hiatal hernia COPD PVD with claudication as below Surgical History Surgery Date(Month/Year) 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 Knott 06/18/2019
== END 2024-06-12 13:26 | disposition home or self-care (01) ==
LOC: HO.HVS 12:55
PROVIDERS: PCP Internal Medicine Medical Oncology; Visit Provider Physician Assistant Surgical
DX: S88.111D Complete traumatic amputation at level between knee and ankle, right lower leg, subsequent encounter (principal)
CPT/HCPCS: 99213

== ENCOUNTER → 2024-06-12 12:54 | Outpatient (BNVA) | payer MEDICARE, SELFPAY | PROVIDERS: PCP Internal Medicine Medical Oncology; Visit Provider Physician Assistant Surgical | DX: S88.111D Complete traumatic amputation at level between knee and ankle, right lower leg, subsequent encounter (principal); M86.9 Osteomyelitis, unspecified; Z79.2 Long term (current) use of antibiotics | CPT/HCPCS: 99212 ==

== ENCOUNTER 2024-06-30 10:41 | Outpatient (AMB) | payer MEDICARE, SELFPAY ==
--- NOTE | 2024-06-30 10:41 | MHC.OFFVIS ---
Vital Signs 06/30/24 10:44 Pulse 60 Pulse Source Pulse Oximeter Pulse Oximetry (%) 99 Oxygen Delivery Method Room Air Intake Visit Reasons: [facility]/osteomyelitis ertapenem Allergies No Known Allergies Allergy (Verified 06/30/24 10:45) HPI HPI [facility]/osteomyelitis ertapenem: Details: He has been taking Vancomycin ,not Ertapenenm. He has right PICC line but staff unable to draw from arms. He has OM right BKA site and started on 05/26 and is done with Vancomycin on 07/07. He has still open pinpoint area but less drainage but still some. He has no fever or chills. [facility] Medical History Osteomyelitis Krish angina Left bundle branch block Bakers cyst Nicotine dependence, cigarettes, uncomplicated Arthritis BPH (benign prostatic hyperplasia) Elevated cholesterol Complex regional pain syndrome i of right lower limb S/P angiogram of extremity (07/18/23) Atrial fibrillation History of Palmer's esophagus Splenic vein thrombosis History of femoral angiogram GERD (gastroesophageal reflux disease) COPD (chronic obstructive pulmonary disease) Peripheral arterial disease Surgical History History of tonsillectomy Hx of oral surgery Hx of tracheostomy History of esophagogastroduodenoscopy (EGD) H/O colonoscopy Social History Household Members: None Household Members Other:: Son, son girlfriend, grandbaby Housing: House Housing Other:: 3 stairs to climb Are you a primary healthcare facility administrator to a significant other at home: No Do you presently have visiting nurse or other home services: Yes Comment: Dr Knott made aware of absent pulse and sensation in right foot Patient Tobacco Use Status: Current everyday Tobacco user Tobacco use type: Cigarette Cigarette Packs Per Day: 0.5 Cigarettes Per Day: 10 Years Smoked: 50 e-Cigarette/Vaping Use: Currently Using Second Hand Smoke Exposure: No Substance Use Type: Marijuana service: No Physical Exam Vital Signs: Last Vital Signs Pulse 60 06/30/24 10:44 Pulse Ox 99 06/30/24 10:44 Oxygen Delivery Method Room Air 06/30/24 10:44 Const Other: General: cooperative Orientation/consciousness: patient oriented x3 HEENT Head: Yes normal to inspection Mouth: Normal oral and palatal mucosa present Eyes General: appearance normal, both eyes and all related structures Pupils: Equal, round and reactive pupils present Resp Effort & Inspection: normal respiratory effort Cardio Rate: regular rate Rhythm: regular rhythm GI Palpation (GI): Soft to palpation and nontender General: Yes no CVA tenderness Back/Spine/Pelvis Back: no CVA tenderness Skin General skin exam: no rashes or lesions noted Neuro General: patient oriented x3 Cranial nerves: Yes CN's II-XII intact bilaterally and Yes Equal, round and reactive pupils present Extrem General: Yes normal to inspection Psych Appearance: grossly normal Assessment & Plan Assessment & Plan (1) Osteomyelitis: Comment: He still has some active infection likely but maximum benefit also likely antibiotics. Code(s): M86.9 - Osteomyelitis, unspecified Category: Medical Plan: Would give two months po Doxycycline. See Vascular debridement or AKA possible. Televisit in two months. Orders: Orders IR cvc remove any age Today M86.9 - Osteomyelitis, unspecified Creatinine Today M86.9 - Osteomyelitis, unspecified Vancomycin Trough Today M86.9 - Osteomyelitis, unspecified Complete Blood Count Auto Diff Today M86.9 - Osteomyelitis, unspecified Medications: New doxycycline hyclate 100 mg PO BID 30 days 60 caps 1RF Coding Level of Care Code Est Pt Level 3 (27092) Diagnoses Osteomyelitis M86.9
[2024-06-30 10:44] VITALS: PULSE 60; O2SAT 99
--- OUTSIDE RECORDS SUMMARY | 2024-06-30 12:08 | XMS_ITS | Encounter Summary ---
Author Organization [facility] Address [address] [place] [address] [place] [address] Phone Care Team Providers Care Umbrella Tipper Machine Name Role Phone Quinton Callahan MD Primary Care Provider +1- [phone] Encounter Details Date Type Department Care Team (Late st Contact Info) Description 12/02/2023 Procedure Pass [facility] Periop [address] [place] [address] Social History Tobacco Use Types Packs/Day Years [...] on filedocumented in this encounter Care Teams Umbrella Tipper Machine Relationship Specialty Start Date End Date Quinton Callahan MD [address] [place] [address] PCP - General Medical Oncology 11/23/23 documented as of this encounter Additional Source Comments The information contained in this document represents components of the legal health record. It is not the complete legal health record.[facility]
--- OUTSIDE RECORDS SUMMARY | 2024-06-30 12:08 | XMS_ITS | Encounter Summary ---
Author Organization [facility] Address [address] [place] [address] [place] [address] Phone Care Team Providers Care Sales Representative Facility Services Name Role Phone Quinton Callahan MD Primary Care Provider +1- [phone] Encounter Details Date Type Department Care Team (Late st Contact Info) Description 12/08/2023 Procedure Pass [facility] EKG [address] [place] [address] Social History Tobacco Use Types Packs/Day Years [...] on filedocumented in this encounter Care Teams Sales Representative Facility Services Relationship Specialty Start Date End Date Quinton Callahan MD [address] [place] [address] PCP - General Medical Oncology 11/23/23 documented as of this encounter Additional Source Comments The information contained in this document represents components of the legal health record. It is not the complete legal health record.[facility]
--- OUTSIDE RECORDS SUMMARY | 2024-06-30 12:08 | XMS_ITS ---
Author Organization [facility] Address [address] [place] [address] Care Team Providers Care Horse Race Timer Name Role Phone [place] MORIN, Quinton Primary Care Provider Unavailab Quinton Alvarez Unavailable [phone] REASON FOR VISIT no show Encounters Encounter Location Date Provider Diagnosis [facility] [address] [place] [address] 08/14/2023 Quinton Campos Plan Of Treatment No Information Progress Notes * HERNANDEZJAZMINE HEREDIACARMENHDOB:1960 (63 yo M)Acc No.[id number]:08/14/2023 Patient:?JUAN FRANCISCO HERNANDEZ :1960???Age:63 Y???Sex:Male Address:[address] [place] [address] [place] [address] * true * Date:? Generated for Montanai robby/Jai/eTransmitting on:?06/30/2024 12:08 PM EDT
--- OUTSIDE RECORDS SUMMARY | 2024-06-30 12:08 | XMS_ITS | Clinical Summary ---
Author Organization [facility] Address [address] [place] [address] Phone Care Team Providers Care Travel Trailer Components Assembler Name Role Phone Quinton Callahan MD Primary Care Provider +1- [phone] Allergies No known active allergies Medications Medication [...] this topic Medical Devices Implanted Type Area Internal Combustion Engine Subassembler Device Identifier Shelf Expiration Date Model / Serial / Lot Graft Vascular 6.0mmx60 70cm Propaten Heparin Carmeda Bioactive Surface Thin Wall Removable Ring Stretch - [id number] Implanted:Qty: 1 on 12/02/2023 by Percy Segundo MD at [facility] STANDARD Right: Vein [employer] [id number] 08/13/2026 [id number] / [id number] / Metal Clip Celd Left Groin 10/2023 Stent Right Femoral Artery Patch Pericardium 2cm 9cm Decellularized Bovine [employer] - [id number] Implanted:Qty: 1 on 12/02/2023 by Percy Segundo MD at [facility] Right: Vein [employer] [id number] 03/24/2025 [id number] / / [id number] Procedures Procedure Name Priority Date/Time Associated Diagnosis Comments BASIC METABOLIC PANEL Routine 02/18/2024 8:01 AM EST Aftercare for amputation stump LIPID PANEL Routine 11/28/2023 1:21 AM EDT from Last 3 Months or Most Recently Relevant to Health Maintenance Results * (ABNORMAL) Basic metabolic panel (02/18/2024 8:01 AM EST) SODIUM 137 133 - 146 mmol/L [facility] CHLORIDE 102 96 - 108 mmol/L [facility] POTASSIUM 4.4 3.3 - 5.1 mmol/L [facility] CO2 25 21 - 35 mmol/L [facility] BUN 13 6 - 19 mg/dL [facility] CREATININE 0.70 0.5 - 1.5 mg/dL [facility] GLUCOSE 101(H) 70 - 99 mg/dL [facility] CALCIUM 9.7 8.4 - 10.3 mg/dL [facility] EGFR 102 >59 mL/min/1.7 3m2 [facility] Comment:Estimated glomerular filtration rate calculated using the CKD-EPI refit equation. ANION GAP 14 10 - 20 mmol/L [facility] Blood 02/18/2024 8:01 AM EST 02/18/2024 10:00 AM EST Garrett Fletcher MD LAB BLOOD ORDERABLES [facility] [address] [place] [address] * Lipid panel (11/28/2023 1:21 AM EDT) CHOLESTEROL 125 <200 mg/dL [facility] TRIGLYCERIDES 60 35 - 150 mg/dL [facility] HDL 60 40 - 80 mg/dL [facility] CALCULATED LDL 53 50 - 129 mg/dL [facility] VLDL 12 <31 mg/dL [facility] CARDIAC RISK RATIO 2.1 0.0 - 4.0 [facility] Blood 11/28/2023 1:21 AM EDT 11/28/2023 1:35 AM EDT Ayla Owens PA-C LAB BLOOD ORDERAB LES [facility] [address] [place] [address] from Last 3 Months or Most Recently Relevant to Health Maintenance Advance Directives For more information, please contact: [phone] (9AM - 5PM [facility], Sunday-Sunday) * Full Code (Latest Code Status on File) Date Activated Date Inactivated Comments 11/27/2023 4:16 PM Question Answer Comments Code Status Confirmed With: Patient Care Teams Travel Trailer Components Assembler Relationship Specialty Start Date End Date Quinton Callahan MD [address] [place] [phone] PCP - General Medical Oncology 11/23/23 Additional Source Comments The information contained in this document represents components of the legal health record. It is not the complete legal health record.[facility]
--- OUTSIDE RECORDS SUMMARY | 2024-06-30 12:09 | XMS_ITS ---
Author Organization Quinton Callahan III, MD Address [address] [place] [address] Care Team Providers Care Sales Account Representative Name Role Phone Quinton Callahan Primary [...] tablet by mouth once daily Active Nystatin 763981 UNIT/GM 1 application Ex ternally Twice a [...] Date Provider Diagnosis Quinton Callahan III, MD [address] [place] [address] [place] [address] 06/12/2024 Quinton Callahan Peripheral arterial disease I73.9 [...] endoscopy and was referred back to his plaster model and mold maker, Dr. Quinton Campos. 06/12/2024 Chronic obstructive pulmonary [...] 1 tablet by mouth once daily Nystatin 264788 UNIT/GM 1 application Ex ternally Twice a day 12/21/2023 Metoprolol Succinate ER 25 MG 1 tablet Orally Once a day ibuprofen 1 tab Oral Tamsulosin HCl 0.4 MG Take 2 capsules by mouth once daily Next Appt Details Follow Up: 4 Weeks, Reason: OV Provider Name:Quinton Callahan, 07/10/2024 11:45:00 AM, [address] [place] [address] [address], [place], [id number], Provider Name:Quinton Callahan, 10/15/2024 11:00:00 AM, [address] [place] [address] [address], [place], [id number], Progress Notes * Ana ENCINAShDOB:1960 (64 yo M)Acc No.[id number]:06/12/2024 Patient:?Zan ENCINAS Provider:?Quinton Callahan MD :1960???Age:64 Y???Sex:Male Duc e:06/12/2024 Address:[address] [place], [place] [id number] Subjective: * Chief Complaints: * ???Right BKAPeripheral arter ial diseaseBenign prostatic hypertrophyCOPDUmbilical herniaBarrett's esophagusTobacco dependenceChronic low back pain * HPI: ???COVID-19 Screening:?He returns to the office after several hospitalizations.? In recent months He has been hospitalized several times with ischemia to the right leg.? He has a long history of peripheral arterial disease and recently had a below the knee amputation of the right leg On February 04, 2024..? After that he was readmitted to [facility] with infection of the stump and then osteomyelitis of the remaining tibia.? He was discharged on May 29, 2024 to home still receiving intravenous antibiotics. He came to the office today wheelchair.? The stump itself is well healed and pink and warm with no sign of skin infection.? His hospitalization and surgery was complicated by retroperitoneal bleeding and his anticoagulant with apixaban was stopped and remains stopped.? He was in a irregular irregular but slow rhythm today.? He is due to and his intravenous antibiotic theerapy July 07, 2024.? He is experiencing nocturia twice a night.? He is smoking 10 cigarettes a day.? He is trying to cut down.? He is seeing his vascular surgeon, Dr. Knott.? Every 2 weeks. ?Questions?Have you had any new onset fever, chills, cough, congestion, sore throat, shortness of breath, muscle aches??No * ROS:?General/Constitutional:?pain?only normal aches and pains.?Chills?denies.?Fatigue?admits.?Fever?denies.?ENT:?Decreased hearing?denies.?Respiratory:?Cough?denies.?Cardiovascular:?Chest pain with exertion?denies.?Dyspnea on exertion?denies.?Shortness of breath?denies.?Gastrointestinal:?Constipation?occasional.?Decreased appetite?denies.?Diarrhea?denies.?Heartburn?occasional.?Nausea?denies.?Rectal bleeding?denies.?Vomiting?denies.?Hematology:?bruising?denies.?petechiae?denies.?Swollen glands?none have been noted.?Genitourinary:?Frequent urination?twice a night.?Musculoskeletal:?Muscle aches?denies.?Painful joints?denies.?Sciatica?denies.?Weakness?denies.?Skin:?Itching?denies.?Rash?denies.?Skin lesion(s)?denies.?Neurologic:?Difficulty speaking?denies.?Dizziness?denies.?Headache?denies.?Low back pain?denies.?Psychiatric:?Depressed mood?which is mild.? * Medical History:? * Surgical History:?tonsillect delia age 6 tracheotomy due to Krish's angina after dental work 1986upper endoscopy and colonoscopy, [facility], Dr. Quinton Campos 2009upper endoscopy, [facility], Dr. Qiunton Campos, Palmer's esophagus 2014arteriogram right lower extremity 05/2019Right nsohi-hql-iptt amputation 02-04-2024 * Hospitalization/Major Diagno stic Procedure:?Denies Past Hospitalization * Family History:?Father: dece ased 73 yrs, [...] healthy grandchildren. One of his siblings has Vhyddjw-Trxwe-Bryzl disease. One of his children has had an appendectomy. A paternal grandfather of lung cancer and a paternal grandmother of pancreatic cancer. 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 He was born in [place], [place]. He came to [place] in 1984. He is with 6 children. He has 11 grandchildren. He is a of [employer]. He trained at [employer] and served in [employer]. * Medications:?TakingNystatin 328088 UNIT/GM Powder 1 application Externally Twice a [...] 10 GM Solution Reconstituted Intravenous Taking Nystatin 594296 UNIT/GM Powder 1 application Externally Twice a [...] the patient * Allergies:?No Known Drug All ergyno[Allergies Verified] Objective: * Vitals:?Ht: 73, Wt:193, BMI: 25.46, BP:138/75, HR:46, Temp:98.6, Ht-cm: 185.42, Wt-k.54. * ???Past Orders: ???Imaging:XR knee RT 4V (Or lia Date - 05/26/2024) (Performed Date - 05/26/2024) [...] Order Date 05/28/2024 05/27/2024 10/03/2023 Vancomycin Random 13.4?L (Ref Range: 15-20 mcg/mL) 13.2?L (Ref Range: 15-20 mcg/mL) 9.5?L (Ref Range: 15-20 mcg/mL) * Lab:Complete Blood Count Aut o Diff * Collection Date 05/27/2024 05/26/2024 02/05/2024 Collection Time 05:55 AM 03:18 PM 07:15 AM Order Date 05/27/2024 05/26/2024 02/05/2024 White Blood Count 9.2 (Ref Range: 4.8-10.8 X10*3/uL) 10.9?H (Ref Range: 4.8-10.8 X10*3/uL) 11.2?H (Ref Range: 4.8-10.8 X10*3/uL) Red Blood Count 5.17 (Ref Range: 4.60-5.80 X10*6/uL) 5.43 (Ref Range: 4.60-5.80 X10*6/uL) 3.39?L (Ref Range: 4.60-5.80 X10*6/uL) Hemoglobin 15.4 (Ref Range: 14.0-18.0 g/dl) 16.0 (Ref Range: 14.0-18.0 g/dl) 10.0?L (Ref Range: 14.0-18.0 g/dl) Hematocrit 46.3 (Ref Range: 42.0-52.0 %) 48.4 (Ref Range: 42.0-52.0 %) 30.8?L (Ref Range: 42.0-52.0 %) Mean Corpuscular Volume [...] 9.4-12.4 fL) 10.0 (Ref Range: 9.4-12.4 fL) 9.1?L (Ref Range: 9.4-12.4 fL) Neutrophils Percent Auto 65.6 (Ref Range: 45-73 %) 70.5 (Ref Range: 45-73 %) 75.6?H (Ref Range: 45-73 %) Imm Gran Pct Auto 0.4 (Ref Range: 0.0-0.4 %) 0.4 (Ref Range: 0.0-0.4 %) 0.6?H (Ref Range: 0.0-0.4 %) Lymphocytes Percent Auto 19.0?L (Ref Range: 20-40 %) 16.8?L (Ref Range: 20-40 %) 9.5?L (Ref Range: 20-40 %) Monocytes Percent Auto 11.2?H (Ref Range: 2-11 %) 9.1 (Ref Range: 2-11 %) 13.8?H (Ref Range: 2-11 %) Eosinophils Percent Auto [...] 2.0-8.3 x10*3/uL) 7.7 (Ref Range: 2.0-8.3 x10*3/uL) 8.5?H (Ref Range: 2.0-8.3 x10*3/uL) Imm Gran Abs Auto 0.04?H (Ref Range: 0.00-0.03 X10*3/uL) 0.04?H (Ref Range: 0.00-0.03 X10*3/uL) 0.07?H (Ref Range: 0.00-0.03 X10*3/uL) Lymphocytes Absolute Auto 1.8 (Ref Range: 1.2-4.9 X10*3/uL) 1.8 (Ref Range: 1.2-4.9 X10*3/uL) 1.1?L (Ref Range: 1.2-4.9 X10*3/uL) Monocytes Absolute Auto 1.0 (Ref Range: 0.1-1.2 X10*3/uL) 1.0 (Ref Range: 0.1-1.2 X10*3/uL) 1.5?H (Ref Range: 0.1-1.2 X10*3/uL) Eosinophils Absolute Auto [...] 60-115 mg/dL) 98 (Ref Range: 60-115 mg/dL) 116?H (Ref Range: 60-115 mg/dL) Calcium 9.0 (Ref [...] 26 (Ref Range: 22-29 mmol/L) Anion Gap 10?L (Ref Range: 12-20) 13 (Ref Range: 12-20) [...] Sedimentation Rate 10 (Ref Range: 0-15 MM/HR) 92?H (Ref Range: 0-15 MM/HR) 2 (Ref Range: 0-15 MM/HR) * Lab:C Reactive Protein * Collection Date 05/26/2024 01/18/2024 10/01/2023 Collection Time 03:18 PM 03:28 PM 07:14 PM Order Date 05/26/2024 01/18/2024 10/01/2023 C Reactive Protein 1.01?H (Ref Range: < or = 0.50 mg/dL) 14.10?H (Ref Range: < or = 0.50 mg/dL) < 0.04 (Ref Range: < or = 0.50 mg/dL) * Lab:Lactic Acid * Collection Date 05/26/2024 01/18/2024 01/10/2024 Collection Time 03:18 PM 03:28 PM 08:55 PM Order Date 05/26/2024 01/18/2024 01/10/2024 Lactic Acid 1.4 (Ref Range: 0.5-2.0 mmol/L) 1.3 (Ref Range: 0.5-2.0 mmol/L) 7.8?HH (Ref Range: 0.5-2.0 mmol/L) * Lab:Comprehensive Met. Panel * Collection Date 05/26/2024 01/18/2024 01/12/2024 Collection Time 03:18 PM 03:28 PM 05:14 AM Order Date 05/26/2024 01/18/2024 01/12/2024 Sodium 138 (Ref Range: 135-145 mmol/L) 134?L (Ref Range: 135-145 mmol/L) 139 (Ref Range: 135-145 mmol/L) Bilirubin Total 0.4 (Ref Range: 0.0-1.0 mg/dL) 2.4?H (Ref Range: 0.0-1.0 mg/dL) 1.1?H (Ref Range: 0.0-1.0 mg/dL) Aspartate Amino Transferase 23 (Ref Range: 5-37 U/L) 147?H (Ref Range: 5-37 U/L) 27 (Ref Range: 5-37 U/L) Alanine Aminotransferase 13 (Ref Range: 0-40 U/L) 280?H (Ref Range: 0-40 U/L) 14 (Ref Range: 0-40 U/L) Total Protein 6.5 (Ref Range: 6.5-8.0 g/dL) 6.7 (Ref Range: 6.5-8.0 g/dL) 5.8?L (Ref Range: 6.5-8.0 g/dL) Albumin Level 3.6 (Ref Range: 3.5-5.0 g/dL) 3.7 (Ref Range: 3.5-5.0 g/dL) 3.5 (Ref Range: 3.5-5.0 g/dL) Alkaline Phosphatase 92 (Ref Range: 39-117 U/L) 382?H (Ref Range: 39-117 U/L) 56 (Ref Range: 39-117 U/L) Potassium 4.3 (Ref Range: 3.3-5.1 mmol/L) 4.2 (Ref Range: 3.3-5.1 mmol/L) 3.9 (Ref Range: 3.3-5.1 mmol/L) Chloride 107 (Ref Range: 96-108 mmol/L) 102 (Ref Range: 96-108 mmol/L) 103 (Ref Range: 96-108 mmol/L) Carbon Dioxide 21?L (Ref Range: 22-29 mmol/L) 23 (Ref Range: 22-29 mmol/L) 26 (Ref Range: 22-29 mmol/L) Anion Gap 14 (Ref Range: 12-20) 13 (Ref Range: 12-20) 14 (Ref Range: 12-20) Blood Urea Nitrogen 16 (Ref Range: 9-16 mg/dL) 16 (Ref Range: 9-16 mg/dL) 25?H (Ref Range: 9-16 mg/dL) Creatinine 0.80 (Ref Range: 0.5-1.4 mg/dL) 0.80 (Ref Range: 0.5-1.4 mg/dL) 0.90 (Ref Range: 0.5-1.4 mg/dL) Estimated Glomerular Filt Rate > 60 > 60 > 60 Glucose Random 94 (Ref Range: 60-115 mg/dL) 119?H (Ref Range: 60-115 mg/dL) 94 (Ref Range: 60-115 mg/dL) Calcium 9.1 (Ref Range: 8.4-10.2 mg/dL) 9.6 (Ref Range: 8.4-10.2 mg/dL) 8.7 (Ref Range: 8.4-10.2 mg/dL) Creatinine Clr Calc Pharmacy 99.6 101.0 100.0 * Examination: ???General Examination: ?GENERAL APPEARANCE:?pleasant, well nourished, well developed, in no acute distress, calm and relaxed, overweight, man.?HEAD:?atraumatic, normocephalic.?EYES:?eomi, perrla, anicteric, conjugate.?EARS:?normal.?NOSE:?septum intact.?ORAL CAVITY:?normal, unremarkable.?NECK/THYROID:?no jugular venous distention, no carotid bruit, thyroid normal.?LYMPH NODES:?no enlarged lymph nodes,spleen normal.?SKIN:?no suspicious lesions, anicteric.?HEART:?no clicks, gallops, murmurs, or rubs, regular rhythm, S1, S2 normal, no s3, or vascular bruits.?LUNGS:?, diminished breath sounds throughout, rhonchi on the RIGHT, rhonchi on the LEFT, good air movement.?BREASTS:??no masses palpable bilaterally.?ABDOMEN:?bowel sounds normal, no ascites, no organomegaly, no mass.?RECTAL EXAM:?not examined.?MUSCULOSKELETAL:?I leg stump well healed pink and warm.?PERIPHERAL PULSES:?normal.?NEUROLOGIC:?alert and oriented, cranial nerves 2-12 grossly intact, deep tendon reflexes 2+ symmetrical, motor strength normal upper and lower extremities, sensory exam intact.?PSYCH:?alert, oriented.? Assessment: * Assessment: 1.?Peripheral arterial disea se - I73.9 (Primary)???Notes :He is seeing the vascular surgeon rita 2 weeks.? He has had an amputation of his right leg and at this time is not ambulatory.? The plan is to fit him for a prosthesis.? He denies any ulcers or claudication in the left leg.???2.?Benign prostatic hyperplasia with lower urinary tract symptoms - N40.1???Notes :The tamsulosin was continued today. He will notify me if his symptoms worsen. He has had no retention. He has symptoms of prostatism.???3.?Palmer's esophagus determined by endoscopy - K22.70???Notes :He is due for an endoscopy and was referred back to his plaster model and mold maker, Dr. Quinton Campos.???4.?Chronic obstructive pulmonary disease, unspecified COPD type - J44.9???Notes :He has resumed smoking 5 cigarettes per day. He was counseled about this and made aware of the smoking cessation programs in the area.???5.?Overweight - E66.3???Notes :His body mass index is 29. We discussed diet and nutrition. I recommended aggressive weight loss and sodium restriction.???6.?Tobacco dependence - F17.200???Notes :I have counseled him about smoking cessation and offered to refer him to smoking cessation programs in the community. He said he would consider this and try to cut down.???7.?Mixed hyperlipidemia - E78.2???Notes :A comprehensive laboratory database with a fasting lipid profile will be obtained. He was continued on his currrent meddications.??? Plan: * Treatment: 2.?Others? Continue Nystatin Powder, 238268 UNIT/GM, 1 application, Externally, Twice a day;?Continue Atorvastatin Calcium Tablet, 10 MG, Take 1 tablet by mouth once daily;?Continue Tamsulosin HCl Capsule, 0.4 MG, Take 2 capsules by mouth once daily;?Continue Pantoprazole Sodium Tablet Delayed Release, 40 MG, Take 2 tablets by mouth once daily.?? * Procedure Codes:?63600 TRANS CARE MGMT 14 DAY DISCH * Preventive Medicine:? ??Counseling:?Care goal follow-up plan:?Counseling for abnormal BMI given?Yes ?Above Normal BMI Follow-up?Dietary management education, guidance, and counseling, Dietary needs education ?Smoking/Tobacco Use?Patient counseled on the dangers of tobacco use and urged to quit.?06/12/2024 ?Patient Lifestyle Goals?Patient wants to quit ?Treatment Goals?Set a quit date, Cut down by 1 cigarette a week ?Barriers?Social smoker, Stress ?Self-Management Plan?Make a plan to cut down number of cigarettes over time and set a date to work towards quitting ??COPD Care Plan:?Patient Lifestyle Goals?Relieve symptoms and improve quality of life, Reduce number of ED and hospitalizations, Be able to be more active with friends and family.?Treatment Goals?Quit Smoking.?Barriers?no barriers.?Self-Managment Goals?Make a plan for quitting smoking.? * Follow Up:?4 Weeks (Reason: OV) * Images: * Sign off status: Completed true * Provider:?Quinton Callahan MD Date:?05/27 Generated for Tristen bustamante/Jai/Allysonitting on:?06/30/2024 12:09 PM EDT History and Physical Notes * [...]
--- OUTSIDE RECORDS SUMMARY | 2024-06-30 12:09 | XMS_ITS | Data Portability ---
Author Organization [facility], Main Office Address [address] [facility], [facility] [address] [place] [address] Care Team Providers Care Digital Account Executive Name Role Phone [facility] OTHER KEON HEREDIA Primary Care Provider [phone] Assessment Encounter Date Assessment Date Assessment LastModified [...] Organization Details Recorded Time Blood in urine [id number] Active [address], [address], [place], [address], [facility] 4 10:17:42 Benign prostatic hyperplasia 442475149 Active [address], [address], [place], [address], [facility] 4 10:17:40 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 [address], [address], [place], [address], [facility] 4 10:18:23 Limb ischemia 1569262932686 5 Active [address], [address], [place], [address], [facility] 4 10:19:49 Peripheral arterial disease 146702379 Active [address], [address], [place], [address], [facility] 4 10:21:45 Chronic obstructive pulmonary disease 23829088 Active [address], [address], [place], [address], [facility] 4 10:22:55 Gastroesoph ageal reflux disease 278858724 Active [address], [address], [place], [address], [facility] 4 10:23:11 Smoker 11359671 Active [address], [address], [place], [address], [facility] 4 10:23:08 Essential hypertensio n 56334760 Active [address], [address], [place], [address], [facility] 4 10:25:41 Hyperlipide angela 08274685 Active 2023 Yvonne Belcher [address] [place] [address], [address], [place], [address], [place] [facility] 4 10:49:02 Peripheral vascular disease 359308171 Active 2023 Yvonne Belcher [address] [facility], [address], [place], [address], [place] [facility] 4 10:49:07 Thrombosis of splenic artery 7439499265007 9106 Active 2023 Yvonne Belcher [address] [facility], [address], [place], [address], [facility] 4 10:49:17 Left bundle branch block 68668934 Active 2023 Yvonne Belcher [address] [place] [address], [address], [place], [address], [facility] 4 10:49:21 Palmer's esophagus 913193006 Active 2023 Yvonne Belcher [address] [place] [address], [facility] [address], [place], [address], [facility] 4 10:50:44 Problem Notes None recorded. [...] Current Every Day Smoker Iveth Diaz MD [address] [place] [address], [address], [place], [address], [facility] 02/11/2024 18:13:51 Do You Have An [...] Do You Have A Medical Power Of Associate Product Integrity Engineer? Yes Information not available 02/11/2024 What Was [...] (COVID-19) vaccine, UNSPECIFIED 06/25/2020 completed Nikia Montes [facility] 02/11/2024 12:20:14 SARS-COV-2 (COVID-19) vaccine, UNSPECIFIED 07/27/2020 completed Nikia Montes [facility] 02/11/2024 12:20:24 Past Encounters Encounter ID Performer Location Encounter Start Date Encounter Closed Date Diagnosis/Indication Diagnosis SNOMED-CT Code Diagnosis ICD10 Code Diagnosis Note [id number] SAMANTHA CONKLIN AT [address] [address] 02/10/2024 10:12:50 02/11/2024 14:36:04 Limb ischemia 5312939737 9105 I99.8 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 s/p R SFA - bk popliteal bypass with vein ([place], 07/2023)con tinue oxycodone 10 mg TID PRNgabapen tin 400 mg QID PRN (odd, would make scheduled) monitor pain controlPT/ OT eval and treatfollo w up with surgeon in 2 weeksshrin ker to be placed once healed- add abd and celeste daily due to bleeding Peripheral arterial insufficiency 7494755730 14261 I73.9 see aboveASA 81 mg dailyfollo wed by vascular Benign pro static hyperplasia 924941218 N40.0 continue flomax 0.8 mg qhsmonitor for outflow issues Gastroesop hageal reflux disease 432460947 K21.9 pantoprazo le 80 mg dailyconsi lia reduction if toleratesm onitor reflux Blood in urine 87730462 R31.9 had inpatientm onitor for clearing Chronic ob structive pulmonary disease 48148172 J44.9 albuterol PRNincruse dailywixel a BIDmonitor resp status Essential hypertension 80370373 I10 assumed as pt is on metoprolol 25 mg daily but no documented [facility] to [facility] Constipation 05654915 K5 9.00 add colace 100 mg BIDmonitor for improvemen t [id number] Iveth Diaz MD [place] AT [address] [address] 02/11/2024 15:43:03 02/12/2024 15:32:16 Limb ischemia 5520044642 9105 I99.8 Will change oxycodone to 10 [...] with surgeon as planned. Peripheral arterial insufficiency 7876047897 66583 I73.89 Z89.511 As above. Benign pro static hyperplasia 145736954 N40.0 No current sxs.Contin ue tamsulosin 0.8 mg qhsMonitor urinary function Gastroesop hageal reflux disease 041808154 K21.9 No current sxs.Contin ue pantoprazo le 80 mg qdMonitor GI sxs. Blood in urine 92132760 R31.0 Had one episode inpt.Now resolved.M onitor for recurrence . Chronic ob structive pulmonary disease 94924254 J43.8 Resp status good at this time.Liv nue incruse ellipta qd, Wixela 500/50 BID, duonebs BID prn and albuterol MDI 2 puffs q 4 hrs prn.Monito r resp status. Essential hypertension 17530769 I10 In good control since here (HTN is on PCP problem list)Liv nue metoprolol 25 mg qdMonitor BP and labs. Constipation 17662471 K5 9.03 Will add miralax 17 gms qd and continue colace 100 mg BIDUse prn meds if needed.Mon itor bowel function. [id number] Nam CONKLIN AT [address] [address] 02/15/2024 10:31:46 02/18/2024 15:29:05 Postoperative wound cellulitis 003193618 L76.82 exam concerning for cellulitis with increased foul smelling discharges tart doxycyclin e 100mg BID x 10 days, probiotic qd x 14 dayscheck CBC w/diff, BMP ll obtain x-ray R stump r/o osteomonit or for worsening sxs Amputated below knee 299 422742 Z89.519 As above. Limb ischemia 3304503728 9105 I99.8 continue oxycodone to 10 mg q 6 hrs scheduled x 7 days, then 10 mg q 8 hrs scheduled x 7 days then 5 mg q 8 hrs prn.Add oxycodone 10mg q24h prn breakthrou gh paincontin ue APAP 975 mg TID and increase gabapentin to 600 mg TID.Contin ue ASA 81 mg qdF/U with surgeon as planned. [id number] Nam CONKLIN AT [address] [address] 02/19/2024 07:36:20 02/21/2024 12:23:04 Postoperative wound cellulitis 509023970 L76.82 Continue doxycyclin e 100mg BID x 10 days, probiotic qd x 14 dayslabs and x-ray unremarkab lemonitor for resolution Limb ischemia 1575178200 9105 I99.8 continue oxycodone 10 mg q 8 hrs scheduled x 7 days then 5 mg q 8 hrs prn. oxycodone 10mg q24h prn breakthrou gh paincontin ue APAP 975 mg TID and gabapentin to 600 mg qam and afternoon, 900mg qhsContinu e ASA 81 mg qdconsult PMR management of painF/U with surgeon as planned. Amputated below knee 299 024957 Z89.519 As above. [id number] SanchezGayCooper CONKLIN AT [address] [address] 02/22/2024 09:19:49 02/25/2024 15:55:50 Postoperative wound cellulitis 269931385 L76.82 Continue doxycyclin e 100mg BID x 10 days, probiotic qd x 14 dayslabs and x-ray unremarkab lemonitor for resolution Limb ischemia 6963964579 9105 I99.8 continue oxycodone 10 mg q 8 hrs scheduled x 7 days then 5 mg q 8 hrs prn. oxycodone 10mg q24h prn breakthrou gh paincontin ue APAP 975 mg TID and gabapentin to 600 mg qam and afternoon, 900mg qhsContinu e ASA 81 mg qdconsult PMR management of painF/U with surgeon as planned. Amputated below knee 299 910771 Z89.519 As above. [id number] Nam CONKLIN AT [address] [address] 02/25/2024 07:30:39 02/26/2024 13:58:50 Postoperative wound cellulitis 857708983 L76.82 resolvedmo nitor for recurrence Limb ischemia 9483188706 9105 I99.8 continue oxycodone 10 mg q 8 hrs scheduled x 7 days then 5 mg q 8 hrs prn. oxycodone 10mg BID prn breakthrou gh paincontin ue APAP 975 mg TID, INcrease gabapentin to 900 mg qam and afternoon, 900mg qhsContinu e ASA 81 mg qdconsult PMR management of painF/U with surgeon as planned. Amputated below knee 299 014387 Z89.519 As above. [id number] HallieCooper CONKLIN AT [address] [address] 02/28/2024 08:43:00 02/29/2024 10:22:21 Limb ischemia 3173965004 9105 I99.8 continue oxycodone 10 mg q 8 hrs scheduled x 7 days then 5 mg q 8 hrs prn. oxycodone 10mg BID prn breakthrou gh paincontin ue APAP 975 mg TID, gabapentin to 900 mg TIDContinu e ASA 81 mg qdconsult PMR management of painF/U with surgeon as planned. Amputated below knee 299 708659 Z89.519 As above. [id number] MD RUBIN Enciso AT [address] [address] 03/03/2024 11:24:29 03/27/2024 10:48:50 Limb ischemia 7050138049 9105 I99.8 s/p amputation cleared for discharge with services and ortho f/u in placedisch arged on oxycodone 5 mg q 8 prn pain #23 tablets given at time of dischargep atient will need appointmen t with PCP for f/u discussed with nursing to schedule prior to discharge Amputated below knee 299 714940 Z89.519 As above. Health Concerns Section Related Observation LastModified by Organization Detai ls LastModified Time None Recorded Concern Status LastModified by Organization Details LastModified Time None Recorded Advance Directives Directive Y: Payers Encounter Date Sequence Insurance Name Policy Number Policy Matute Covered Member ID Matute Member ID Guarantor Name 02/19/2024 1 [employer] (MEDICARE REPLACEMENT PPO) [id number] 02/22/2024 1 [employer] (MEDICARE REPLACEMENT PPO) [id number] [facility] [id number] [facility] 02/25/2024 1 [employer] (MEDICARE REPLACEMENT PPO) [id number] Zan Encinas [id number] [facility] 02/28/2024 1 [employer] (MEDICARE REPLACEMENT PPO) [id number] Zan Encinas [id number] [facility] 03/03/2024 1 [employer] (MEDICARE REPLACEMENT PPO) [id number] Zan Schulerenter [id number] [facility] Notes Date Note Type Note Provider [...] f/t/h occlusion of bypass now s/p R FIELD CARE MANAGER-AT bypass w ePTFE w/ patch angioplasties ([place] 12/01). [facility] [address] [place] [address], [address], [place], [address], [facility] [employer] 02/19/2024 09:56:01 02/22/2024 text/html This is a [...] f/t/h occlusion of bypass now s/p R FIELD CARE MANAGER-AT bypass w ePTFE w/ patch angioplasties ([place] 12/01). [facility] [address] [facility], [address], [place], [address], [employer] 02/22/2024 11:16:10 02/25/2024 text/html This is a 63 yo man who is being seen for acute rounding visit Patient doing well todayPain controlled with oxycodone. Gabapentin increased last week at f/u vascular with IMprovement. Reported increased pain over the weekend with 1x dose oxycodone 10mg.Actively participating in therapyself-propelling around unit in w/cPMR consulted Patient seen sitting in room in bed in [facility]. He tells me for the most [...] f/t/h occlusion of bypass now s/p R FIELD CARE MANAGER-AT bypass w ePTFE w/ patch angioplasties ([place] 12/01). [facility] [address] [facility], [address], [place], [address], [employer] [facility] 02/25/2024 11:08:05 02/28/2024 text/html This is a 63 yo man who is being seen for acute rounding visit Patient had f/u vascular on 02/25recs to continue with daily dressing changes noted with small open area on medial aspectNo used car renovator or prosthesis yet. The site needs to be completely healed first. 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 He reports improvement in [...] f/t/h occlusion of bypass now s/p R FIELD CARE MANAGER-AT bypass w ePTFE w/ patch angioplasties ([place] 12/01). [facility] [address] [facility], [address], [place], [address], [facility] [employer] 02/28/2024 12:14:07 03/03/2024 text/html Patient is a [...] [facility], [address], [place], [address], [facility] 03/03/2024 11:33:58
--- OUTSIDE RECORDS SUMMARY | 2024-06-30 12:09 | XMS_ITS | Patient Health Record ---
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 date:01/07/2024 01:28:15 PM Interpretation: Performing Lab:[address] [address] Notes/Report: Blood Urea Nitrogen 16 9-16 mg/dL Creatinine Reviewed date:01/07/2024 01:28:15 PM Interpretation: Performing Lab:[address] [address] Notes/Report: Creatinine 0.81 0.5-1.4 mg/dL Creatinine Clr Calc Pharmacy 99.7 eGFR (calculated from the MDRD study equation) and eCrCl (calculated from the Cockcroft-Gault equation) are based on different parameters and may not yield comparable results. If eCrCl result is absurd, please check patient's height/weight. Estimated Glomerular Filt Rate > 60 NOTE: For -L[place]uanian individuals, multiply the result by 1.210. Chronic Kidney Disease: Estimated GFR < 60 mL/min/1.73m2 Severe Kidney Disease: Estimated GFR < 15 mL/min/1.73m2 ACT LR Reviewed date:01/16/2024 08:51:12 AM Interpretation: Performing Lab:[address] [address] Notes/Report: out of range low [id number] HO.MARUSA 0906 HO.MULVEC Fibrinogen Reviewed date:01/08/2024 08:33:39 AM Interpretation: Performing Lab:[facility], [address] [place] [phone] Notes/Report: Fibrinogen 445 259-690 MG/DL Complete Blood Count no Diff Reviewed date:01/10/2024 09:47:57 AM Interpretation: Performing Lab:[address] [address] Notes/Report: White Blood Count 28.7 4.8-10.8 X10*3/uL [...] ff Reviewed date:01/08/2024 08:33:39 AM Interpretation: Performing Lab:[facility], [address] [place] [address] Notes/Report: White Blood Count 10.1 4.8-10.8 X10*3/uL [...] gy Reviewed date:01/08/2024 02:05:08 PM Interpretation: Performing Lab:[facility], [address] [place] [phone] Notes/Report: Hold Lav - Possible Hematology SEE NOTE Specimen will be held untested for 8 hours. Call Hematology if testing is desired. PTT Heparin Drip Reviewed date:01/08/2024 08:33:39 AM Interpretation: Performing Lab:[facility], [address] [place] [phone] Notes/Report: PTT Heparin Drip 40.9 53-77.9 SEC For information regarding the monitoring of heparin therapy, please refer to Pharmacy. Fibrinogen Reviewed date:01/08/2024 08:33:39 AM Interpretation: Performing Lab:[facility], [address] [place] [phone] Notes/Report: Fibrinogen 432 259-690 MG/DL Basic Metabolic Panel Reviewed date:01/08/2024 08:33:39 AM Interpretation: Performing Lab:[address] [address] Notes/Report: Sodium 138 135-145 mmol/L Potassium 3.8 [...] Phosphorus Reviewed date:01/08/2024 08:33:39 AM Interpretation: Performing Lab:[address] [address] Notes/Report: Phosphorus 2.9 2.7-4.5 mg/dL Magnesium Reviewed date:01/08/2024 08:33:39 AM Interpretation: Performing Lab:[facility], [address] [place] [phone] Notes/Report: Magnesium 1.8 1.6-2.6 mg/dL Albumin Level Reviewed date:01/08/2024 08:33:39 AM Interpretation: Performing Lab:[facility], [address] [place] [address] Notes/Report: Albumin Level 3.2 3.5-5.0 g/dL ACT LR Reviewed date:01/11/2024 01:49:27 PM Interpretation: Performing Lab:[facility], [address] [place] [address] Notes/Report: 109 [id number] HOASHLEY 0846 HOYUNIOR ACT 109 79-173 Celite s Results are converted to a reference Celite ACT value in seconds. A reference interval is unavailable for ACT. Kathy Flores Reviewed date:01/08/2024 02:05:08 PM Interpretation: Performing Lab:[facility], [address] [place] [phone] Notes/Report: Kathy Flores See Note Specimen held untested for 24 hours; Call to request Chemistry testing. SLIDE REVIEW Reviewed date:01/08/2024 02:05:08 PM Interpretation: Performing Lab:[facility], [address] [place] [phone] Notes/Report: SLIDE REVIEW VERIFIED Type and Screen Reviewed date:01/11/2024 01:49:26 PM Interpretation: Performing Lab:[facility], [address] [place] [phone] Notes/Report: Results at Issue Units as of 01/09/2430 ... Test View Group: Most Recent HGB HCT Results LABORATORY Date Time Test Result Flag Normal Range 01/09/24533 HGB 7.7 L 14.0-18.0 g/dl 01/09/2434 HCT 23.0 L 42.0-52.0 % Results at Issue Units as of 01/09/24 1521 ... Test View Group: Most Recent HGB HCT Results LABORATORY Date Time Test Result Flag Normal Range 01/09/241999 HGB PENDING RECEIPT 14.0-18.0 g/dl 01/09/24 140 HGB 7.5 L 14.0-18.0 g/dl 01/09/241999 HCT PENDING RECEIPT 42.0-52.0 % 01/09/24 140 HCT 22.0 L 42.0-52.0 % Results at Issue Units as of 01/10/24 0157 ... Test View Group: Most Recent HGB HCT Results LABORATORY Date Time Test Result Flag Normal Range 01/10/24 0500 HGB PENDING RECEIPT 14.0-18.0 g/dl 01/09/241947 HGB 7.7 L 14.0-18.0 g/dl 01/10/24 050 HCT PENDING RECEIPT 42.0-52.0 % 01/09/241947 HCT 23.3 L 42.0-52.0 % Results at Issue Units as of 01/10/24 1940 ... Test View Group: Most Recent HGB HCT Results LABORATORY Date Time Test Result Flag Normal Range 01/10/241934 HGB PENDING RECEIPT 14.0-18.0 g/dl 01/10/24 1749 HGB 3.7 #*L 14.0-18.0 g/dl Results of HGB called to and read back by JONAS on 01/10/24 at 1916 by BORIS. 01/10/241934 HCT PENDING RECEIPT 42.0-52.0 % 01/10/241748 HCT 10.5 #*L 42.0-52.0 % Results of HCT called to and read back by JONAS on 01/10/24 at 1918 by BORIS. mL/HR [...] BORIS. Results at Issue Units as of 01/10/247 ... Test View Group: Most Recent Coag [...] BORIS. Results at Issue Units as of 01/10/247 ... Test View Group: Most Recent Coag Results LABORATORY Date Time Test Result Flag Normal Range 01/10/24 0459 PT* 12.1 10.9-12.4 SEC Results at Issue Units as of 01/10/24 2157 ... Test View Group: Most Recent HGB HCT Results LABORATORY Date Time Test Result Flag Normal Range 01/10/241943 HGB 3.3 *L 14.0-18.0 g/dl Results of HGB called to and read back by JONAS on 01/10/24 at 1959 by BORIS. 01/10/241943 HCT 9.9 *L 42.0-52.0 % Results of HCT called to and read back by [employer] on 01/10/24 at 2000 by BORIS. Results at Issue Units as of 01/11/24 0134 ... Test View Group: Most Recent Platelet [...] 01/11/24 0500 HCT PENDING RECEIPT 42.0-52.0 % 01/11/24 011 HCT 18.7 #*L 42.0-52.0 % Results of HEMATOCRIT called to and read back by SARTHAK on 01/11/24 at 0123 by JEWELS. MTP MTP None available No Blood Type OP Antibody Screen NEGATIVE Red Blood Cells Reviewed date:01/11/2024 01:49:26 PM Interpretation: Performing Lab:[facility], [address] [place] [phone] Notes/Report: Red Blood Cells [id number] ON RC Red Blood Cells TRANSFUSED 01/09/24 0929 Red Blood Cells [id number] OP RC Red Blood Cells TRANSFUSED 01/09/24 1520 Red Blood Cells [id number] OP RC Red Blood Cells TRANSFUSED 01/10/24 0154 Red Blood Cells [id number] OP RC Red Blood Cells TRANSFUSED 01/10/24 1938 Red Blood Cells [id number] OP RC Red Blood Cells TRANSFUSED 01/10/242025 Red Blood Cells [id number] OP RC Red Blood Cells TRANSFUSED 01/10/24 2156 Red Blood Cells [id number] OP RC Red Blood Cells TRANSFUSED 01/10/242025 Red Blood Cells [id number] OP RC Red Blood Cells TRANSFUSED 01/11/24 0159 Red Blood Cells [id number] OP RC Red Blood Cells TRANSFUSED 01/11/24 0159 Arterial Blood Gases - POC Reviewed date:01/08/2024 02:05:08 PM Interpretation: Performing Lab:[facility], [address] [place] [address] Notes/Report: ABG pH 7.42 7.35-7.45 METER #: [id number] additional_comment: Cbgreavet ctrbpavlova ABG pCO2 34 32-45 mmHg METER #: [id number] additional_comment: Cbgreavet ctrbpavlova ABG pO2 95 83-108 mmHg METER #: [id number] additional_comment: Cbgreavet ctrbpavlova ABG Base Excess -1.2 METER #: [id number] additional_comment: Cbgreavet ctrbpavlova ABG HCO3 22 22-26 mmol/L METER #: [id number] additional_comment: Cbgreavet ctrbpavlova ABG O2 % Saturation 99.0 METER #: [id number] additional_comment: Cbgreavet ctrbpavlova Pheresis Platelets Reviewed date:01/11/2024 01:49:27 PM Interpretation: Performing Lab:[facility], [address] [place] [phone] Notes/Report: Pheresis Platelets [id number] OP PHPLT Pheresis Platelets TRANSFUSED 01/11/24 0133 Hold Green Gel Reviewed date:01/08/2024 02:05:08 PM Interpretation: Performing Lab:[facility], [address] [place] [phone] Notes/Report: Hold Green Gel See Note Specimen held untested for 24 hours; Call to request Chemistry testing. Fresh Frozen Plasma Reviewed date:01/11/2024 01:49:27 PM Interpretation: Performing Lab:[facility], [address] [place] [phone] Notes/Report: Fresh Frozen Plasma [id number] AP FFP Fresh Frozen Plasma TRANSFUSED 01/11/24 0159 Fresh Frozen Plasma [id number] OP FFP Fresh Frozen Plasma TRANSFUSED 01/10/[address] abdomen pelvis w con Reviewed date:01/08/2024 02:05:08 PM Interpretation: Performing Lab: Notes/Report: [address] [address] [address] Scan Report Signed Patient: Zan Encinas MR#: [id number] : 1960 Acct:[id number] Age/Sex: 63 / M ADM Date: 01/07/24 Loc: .[facility] 255-[address]: Bimal Knott MD Ordering Physician: Sawyer Case MD Date of Service: 01/08/24 Procedure(s): CT abdomen pelvis w IV con Accession Number(s): [id number] cc: Quinton Callahan MD; Sawyer Case MD [...] right superficial femoral vein. There are likely Garden-Ariel bypass femoral, bilaterally.. OSSEOUS STRUCTURES: Multilevel thoracolumbar [...] by: Theo Stern MD 01/08/2024 12:21 PM [facility] Dictated By: Theo Lagunas MD Signed By: <Electronically signed by Theo Steven MD in OV> 01/08/24 1221 DD/ 1105 TD/TT: 01/08/24 1125 Suspender Cutter: [address] [address] [address] Scan Report Signed Patient: Zan Encinas MR#: [id number] : 1960 Acct:[id number] Age/Sex: 63 / M ADM Date: 01/07/24 Loc: HO.ICU 255-[address]: Bimal Knott MD Ordering Physician: Sawyer Case MD Date of Service: 01/08/24 Procedure(s): CT abd omen pelvis w IV con Accession Number(s): [id number] cc: Quinton Callahan MD; Sawyer Case MD [...] right superficial femoral vein. There are likely Garden-Ariel bypass femoral, bilaterally.. OSSEOUS STRUCTURES: Multilevel thoracolumbar [...] by: Theo Stern MD 01/08/2024 12:21 PM [facility] Dictated By: Theo Sawyer MD Signed By: <Electronically signed by Theo Steven MD in OV> 01/08/24 1221 DD/ 1105 TD/TT: 01/08/24 1125 Suspender Cutter: Fibrinogen Reviewed date:01/08/2024 08:33:39 AM Interpretation: Performing Lab:[facility], [address] [place] [phone] Notes/Report: Fibrinogen 441 259-690 MG/DL Complete Blood Count Auto Di ff Reviewed date:01/08/2024 02:05:08 PM Interpretation: Performing Lab:[facility], [address] [place] [phone] Notes/Report: White Blood Count 20.0 4.8-10.8 X10*3/uL [...] Drip Reviewed date:01/08/2024 02:05:08 PM Interpretation: Performing Lab:[facility], [address] [place] [address] Notes/Report: PTT Heparin Drip > 200.0 53-77.9 SEC Results of PTT-HD called to and read back by MARIELA on 01/08/24 at 1155 by FROY. For information regarding the monitoring of heparin therapy, please refer to Pharmacy. Basic Metabolic Panel Reviewed date:01/10/2024 09:47:57 AM Interpretation: Performing Lab:[facility], [address] [place] [phone] Notes/Report: Sodium 134 135-145 mmol/L Potassium 4.9 [...] Phosphorus Reviewed date:01/10/2024 09:47:57 AM Interpretation: Performing Lab:[facility], [address] [place] [address] Notes/Report: Phosphorus 4.1 2.7-4.5 mg/dL Magnesium Reviewed date:01/10/2024 09:47:57 AM Interpretation: Performing Lab:[facility], [address] [place] [phone] Notes/Report: Magnesium 1.9 1.6-2.6 mg/dL Complete Blood Count Auto Di ff Reviewed date:01/10/2024 09:47:57 AM Interpretation: Performing Lab:[facility], [address] [place] [phone] Notes/Report: White Blood Count 21.8 4.8-10.8 X10*3/uL [...] REVIEW Reviewed date:01/10/2024 09:47:57 AM Interpretation: Performing Lab:[facility], [address] [place] [address] Notes/Report: SLIDE REVIEW VERIFIED ACT LR Reviewed date:01/11/2024 01:49:27 PM Interpretation: Performing Lab:[facility], [address] [place] [address] Notes/Report: 203 [id number] HO.GUILHERME 0855 mulvec ACT 203 79-173 Celite s Results are converted to a reference Celite ACT value in seconds. A reference interval is unavailable for ACT. Complete Blood Count Auto Di ff Reviewed date:01/10/2024 09:47:57 AM Interpretation: Performing Lab:[facility], [address] [place] [phone] Notes/Report: White Blood Count 16.7 4.8-10.8 X10*3/uL [...] gy Reviewed date:01/10/2024 09:47:57 AM Interpretation: Performing Lab:[address] [address] Notes/Report: Hold Lav - Possible Hematology SEE NOTE Specimen will be held untested for 8 hours. Call Hematology if testing is desired. Prothrombin Time INR Reviewed date:01/10/2024 09:47:57 AM Interpretation: Performing Lab:[facility], [address] [place] [address] Notes/Report: Prothrombin Time 11.5 10.9-12.4 SEC INTERNATIONAL [...] Drip Reviewed date:01/10/2024 09:47:57 AM Interpretation: Performing Lab:[address] [address] Notes/Report: PTT Heparin Drip 28.1 53-77.9 SEC For information regarding the monitoring of heparin therapy, please refer to Pharmacy. Basic Metabolic Panel Reviewed date:01/10/2024 09:47:57 AM Interpretation: Performing Lab:[address] [address] Notes/Report: Sodium 136 135-145 mmol/L Potassium 4.5 [...] Phosphorus Reviewed date:01/10/2024 09:47:57 AM Interpretation: Performing Lab:[address] [address] Notes/Report: Phosphorus 4.0 2.7-4.5 mg/dL Magnesium Reviewed date:01/10/2024 09:47:57 AM Interpretation: Performing Lab:[facility], [address] [place] [address] Notes/Report: Magnesium 1.9 1.6-2.6 mg/dL Albumin Level Reviewed date:01/10/2024 09:47:57 AM Interpretation: Performing Lab:[facility], [address] [place] [phone] Notes/Report: Albumin Level 3.2 3.5-5.0 g/dL SLIDE REVIEW Reviewed date:01/10/2024 09:47:57 AM Interpretation: Performing Lab:[facility], [address] [place] [phone] Notes/Report: SLIDE REVIEW VERIFIED Complete Blood Count Auto Di ff Reviewed date:01/10/2024 09:47:57 AM Interpretation: Performing Lab:[facility], [address] [place] [phone] Notes/Report: White Blood Count 10.8 4.8-10.8 X10*3/uL [...] Drip Reviewed date:01/10/2024 09:47:57 AM Interpretation: Performing Lab:[facility], [address] [place] [address] Notes/Report: PTT Heparin Drip 34.2 53-77.9 SEC For information regarding the monitoring of heparin therapy, please refer to Pharmacy. Complete Blood Count Auto Di ff Reviewed date:01/10/2024 09:47:57 AM Interpretation: Performing Lab:[facility], [address] [place] [phone] Notes/Report: White Blood Count 8.4 4.8-10.8 X10*3/uL [...] Panel Reviewed date:01/10/2024 09:47:57 AM Interpretation: Performing Lab:[facility], [address] [place] [phone] Notes/Report: Sodium 135 135-145 mmol/L Potassium 4.5 [...] Phosphorus Reviewed date:01/10/2024 09:47:57 AM Interpretation: Performing Lab:[facility], [address] [place] [phone] Notes/Report: Phosphorus 3.0 2.7-4.5 mg/dL Magnesium Reviewed date:01/10/2024 09:47:57 AM Interpretation: Performing Lab:[facility], [address] [place] [address] Notes/Report: Magnesium 2.2 1.6-2.6 mg/dL PTT Heparin Drip Reviewed date:01/10/2024 09:47:57 AM Interpretation: Performing Lab:[facility], [address] [place] [address] Notes/Report: PTT Heparin Drip 55.2 53-77.9 SEC For information regarding the monitoring of heparin therapy, please refer to Pharmacy. Complete Blood Count Auto Di ff Reviewed date:01/10/2024 09:47:57 AM Interpretation: Performing Lab:[facility], [address] [place] [address] Notes/Report: White Blood Count 9.2 4.8-10.8 X10*3/uL [...] Hematocrit Reviewed date:01/11/2024 01:49:27 PM Interpretation: Performing Lab:[facility], [address] [place] [phone] Notes/Report: Hemoglobin 3.3 14.0-18.0 g/dl Results of HGB called to and read back by JONAS on 01/10/24 at 1959 by BORIS. Hematocrit 9.9 42.0-52.0 % Results of HCT called to and read back by JONAS on 01/10/24 at 2001 by BORIS. Pathologist Review - CBC Reviewed date:01/11/2024 01:49:26 PM Interpretation: Performing Lab:[facility], [address] [place] [phone] Notes/Report: Pathologist Review - CBC SEE NOTE Normochromic normocytic anemia. - Javi Farias M.D. Pathology Prothrombin Time INR Reviewed date:01/10/2024 09:47:57 AM Interpretation: Performing Lab:[facility], [address] [place] [phone] Notes/Report: Prothrombin Time 12.1 10.9-12.4 SEC INTERNATIONAL [...] Drip Reviewed date:01/10/2024 09:47:57 AM Interpretation: Performing Lab:[facility], [address] [place] [address] Notes/Report: PTT Heparin Drip 44.5 53-77.9 SEC For information regarding the monitoring of heparin therapy, please refer to Pharmacy. Comprehensive Met. Panel Reviewed date:01/11/2024 01:49:27 PM Interpretation: Performing Lab:[facility], [address] [place] [phone] Notes/Report: Sodium 135 135-145 mmol/L Potassium 4.9 [...] Panel Reviewed date:01/10/2024 09:47:57 AM Interpretation: Performing Lab:[facility], [address] [place] [phone] Notes/Report: Sodium 136 135-145 mmol/L Potassium 4.1 [...] Acid Reviewed date:01/11/2024 01:49:27 PM Interpretation: Performing Lab:[facility], [address] [place] [phone] Notes/Report: Lactic Acid 7.8 0.5-2.0 mmol/L Critical value for test(s): LACTA Results called to and read back by:VIKRAM Person calling: TANG Date:01-10-2024 Time:2121 Phosphorus Reviewed date:01/10/2024 09:47:57 AM Interpretation: Performing Lab:[facility], [address] [place] [address] Notes/Report: Phosphorus 2.8 2.7-4.5 mg/dL Magnesium Reviewed date:01/10/2024 09:47:57 AM Interpretation: Performing Lab:[facility], [address] [place] [phone] Notes/Report: Magnesium 2.0 1.6-2.6 mg/dL Albumin Level Reviewed date:01/10/2024 09:47:57 AM Interpretation: Performing Lab:[facility], [address] [place] [phone] Notes/Report: Albumin Level 3.5 3.5-5.0 g/dL Lactic Acid-LAB USE ONLY Reviewed date:01/11/2024 01:49:27 PM Interpretation: Performing Lab:[facility], [address] [place] [phone] Notes/Report: Lactic Acid-LAB USE ONLY 1.9 0.5-2.0 mmol/L Venous Blood Gases - POC Reviewed date:01/11/2024 01:49:27 PM Interpretation: Performing Lab:[facility], [address] [place] [phone] Notes/Report: VBG pH 7.42 7.32-7.43 METER #: [id number] 0250C VBG pCO2 25 METER #: [id number] 0250C VBG pO2 76 METER #: [id number] 0250C VBG Base Excess -6.7 METER #: [id number] VBG HCO3 16 22-26 mmol/L METER #: [id number] 0250C VBG O2 % Saturation TNP Hold Green Gel Reviewed date:01/11/2024 01:49:27 PM Interpretation: Performing Lab:[facility], [address] [place] [phone] Notes/Report: Hold Green Gel See Note Specimen held untested for 24 hours; Call to request Chemistry testing. CT abdomen pelvis w con Reviewed date:01/11/2024 01:49:27 PM Interpretation: Performing Lab: Notes/Report: [address] [place] [address] CT Scan Report Signed Patient: Zan Encinas MR#: [id number] : 1960 Acct:[id number] Age/Sex: 63 / M ADM Date: 01/07/24 Loc: [facility] 255-[address]: Bimal Knott MD Ordering Physician: Som Vela NP Date of Service: 01/10/24 Procedure(s): CT abdomen pelvis w IV con Accession Number(s): [id number] cc: Quinton Callahan MD; Som Vela NP [...] by: Jarret Ferrara MD 01/10/2024 10:00 PM [facility] Dictated By: Jarret Ferrara MD Signed By: <Electronically signed by Jarret Ferrara MD in OV> 01/10/240 DD/ 21 TD/TT: 01/10/242021 Suspender Cutter: [place] [address] CT Scan Report Signed Patient: Zan Encinas MR#: [id number] : 1960 Acct:[id number] Age/Sex: 63 / M ADM Date: 01/07/24 Loc: .ICU 255-[address]: Bimal Knott MD Ordering Physician: Som Vela NP Date of Service: 01/10/24 Procedure(s): CT abd omen pelvis w IV con Accession Number(s): [id number] cc: Quinton Callahan MD; Som Vela NP [...] by: Jarret Ferrara MD 01/10/2024 10:00 PM [facility] Workstation: [id number] Dictated By: Jarret Ferrara MD Signed By: <Electronically signed by Jarret Ferrara MD in OV> 01/10/242199 DD/ 21 TD/TT: 01/10/242021 Suspender Cutter: PTT Heparin Drip Reviewed date:01/11/2024 01:49:27 PM Interpretation: Performing Lab:[facility], [address] [place] [phone] Notes/Report: PTT Heparin Drip 80.2 53-77.9 SEC For information regarding the monitoring of heparin therapy, please refer to Pharmacy. PTT Heparin Drip Reviewed date:01/11/2024 01:49:27 PM Interpretation: Performing Lab:[facility], [address] [place] [phone] Notes/Report: PTT Heparin Drip 66.0 53-77.9 SEC For information regarding the monitoring of heparin therapy, please refer to Pharmacy. Complete Blood Count Auto Di ff Reviewed date:01/11/2024 01:49:26 PM Interpretation: Performing Lab:[facility], [address] [place] [phone] Notes/Report: White Blood Count 17.6 4.8-10.8 X10*3/uL [...] Diff Reviewed date:01/12/2024 07:43:31 AM Interpretation: Performing Lab:[facility], [address] [place] [phone] Notes/Report: White Blood Count 12.3 4.8-10.8 X10*3/uL [...] ff Reviewed date:01/11/2024 01:49:26 PM Interpretation: Performing Lab:[facility], [address] [place] [phone] Notes/Report: White Blood Count 18.2 4.8-10.8 X10*3/uL [...] Panel Reviewed date:01/11/2024 01:49:26 PM Interpretation: Performing Lab:[address] [id number] Notes/Report: Sodium 135 135-145 mmol/L Potassium 4.6 [...] Phosphorus Reviewed date:01/11/2024 01:49:26 PM Interpretation: Performing Lab:[facility], [address] [place] [phone] Notes/Report: Phosphorus 4.3 2.7-4.5 mg/dL Magnesium Reviewed date:01/11/2024 01:49:26 PM Interpretation: Performing Lab:[facility], [address] [place], [place] [phone] Notes/Report: Magnesium 2.2 1.6-2.6 mg/dL Albumin Level Reviewed date:01/11/2024 01:49:26 PM Interpretation: Performing Lab:[facility], [address] [place] [phone] Notes/Report: Albumin Level 3.6 3.5-5.0 g/dL SLIDE REVIEW Reviewed date:01/11/2024 01:49:26 PM Interpretation: Performing Lab:[facility], [address] [place] [phone] Notes/Report: SLIDE REVIEW VERIFIED Venous Blood Gases - POC Reviewed date:01/11/2024 01:49:26 PM Interpretation: Performing Lab:[facility], [address] [place] [address] Notes/Report: VBG pH 7.49 7.32-7.43 METER #: [id number] additional_comment: Jeovany burgess ctrbb henriquezc VBG pCO2 35 METER #: [id number] additional_comment: Jeovany burgess laurenbb henriquezc VBG pO2 57 METER #: [id number] additional_comment: Jeovany burgess ctrbb henriquezc VBG Base Excess 4.0 METER #: [id number] additional_comment: Jeovany burgess ctrbb henriquezc VBG HCO3 27 22-26 mmol/L METER #: [id number] additional_comment: Jeovany burgess ctrbb henriquezc VBG O2 % Saturation 92.0 METER #: [id number] additional_comment: Jeovany burgess ctrbb henriquegiovannic Venous Blood Gases - POC Reviewed date:01/11/2024 01:49:26 PM Interpretation: Performing Lab:[facility], [address] [place] [phone] Notes/Report: VBG pH 7.42 7.32-7.43 METER #: [id number] additional_comment: Jeovany cazarse ctrbb henriquezc VBG pCO2 42 METER #: [id number] additional_comment: Jeovany saucedo VBG pO2 35 METER #: [id number] additional_comment: Jeovany saucedo VBG Base Excess 3.7 METER #: [id number] additional_comment: Jeovany saucedo VBG HCO3 28 22-26 mmol/L METER #: [id number] additional_comment: Jeovany saucedo VBG O2 % Saturation 62.0 METER #: [id number] additional_comment: Jeovany velac Complete Blood Count Auto Di ff Reviewed date:01/11/2024 01:49:26 PM Interpretation: Performing Lab:[facility], [address] [place] [address] Notes/Report: White Blood Count 14.9 4.8-10.8 X10*3/uL [...] ff Reviewed date:01/11/2024 08:19:34 PM Interpretation: Performing Lab:[facility], [address] [place] [address] Notes/Report: White Blood Count 14.3 4.8-10.8 X10*3/uL [...] REVIEW Reviewed date:01/11/2024 08:19:34 PM Interpretation: Performing Lab:[facility], [address] [place] [phone] Notes/Report: SLIDE REVIEW VERIFIED Basic Metabolic Panel Reviewed date:01/12/2024 07:43:31 AM Interpretation: Performing Lab:[facility], [address] [place] [address] Notes/Report: Sodium 133 135-145 mmol/L Potassium 4.0 [...] Phosphorus Reviewed date:01/12/2024 07:43:31 AM Interpretation: Performing Lab:[facility], [address] [place] [address] Notes/Report: Phosphorus 2.7 2.7-4.5 mg/dL Magnesium Reviewed date:01/12/2024 07:43:31 AM Interpretation: Performing Lab:[facility], [address] [place] [address] Notes/Report: Magnesium 2.4 1.6-2.6 mg/dL Complete Blood Count no Diff Reviewed date:01/13/2024 07:58:52 PM Interpretation: Performing Lab:[facility], [address] [place] [address] Notes/Report: White Blood Count 11.9 4.8-10.8 X10*3/uL [...] ff Reviewed date:01/12/2024 07:43:31 AM Interpretation: Performing Lab:[facility], [address] [place] [phone] Notes/Report: White Blood Count 11.0 4.8-10.8 X10*3/uL [...] Panel Reviewed date:01/12/2024 07:43:31 AM Interpretation: Performing Lab:[address] [address] Notes/Report: Sodium 139 135-145 mmol/L Potassium 3.9 [...] Phosphorus Reviewed date:01/12/2024 07:43:31 AM Interpretation: Performing Lab:[address] [address] Notes/Report: Phosphorus 2.8 2.7-4.5 mg/dL Magnesium Reviewed date:01/12/2024 07:43:31 AM Interpretation: Performing Lab:[address] [address] Notes/Report: Magnesium 2.3 1.6-2.6 mg/dL SLIDE REVIEW Reviewed date:01/12/2024 07:43:31 AM Interpretation: Performing Lab:[facility], [address] [place] [phone] Notes/Report: SLIDE REVIEW VERIFIED Venous Blood Gases - POC Reviewed date:01/12/2024 07:43:31 AM Interpretation: Performing Lab:[facility], [address] [place] [address] Notes/Report: VBG pH 7.41 7.32-7.43 METER #: [id number] additional_comment: Jeovany stevenson henric VBG pCO2 47 METER #: [id number] additional_comment: Jeovany aguilarbb henric VBG pO2 34 METER #: [id number] additional_comment: Jeovany aguilarbb henric VBG Base Excess 5.9 METER #: [id number] additional_comment: Jeovany aguilarbb henric VBG HCO3 31 22-26 mmol/L METER #: [id number] additional_comment: Jeovany aguilarbb henric VBG O2 % Saturation 56.0 METER #: [id number] additional_comment: Jeovany aguilarbb henric Complete Blood Count Auto Di ff Reviewed date:01/12/2024 07:43:31 AM Interpretation: Performing Lab:[facility], [address] [place] [phone] Notes/Report: White Blood Count 10.7 4.8-10.8 X10*3/uL [...] ff Reviewed date:01/13/2024 07:58:52 PM Interpretation: Performing Lab:[facility], [address] [place] [address] Notes/Report: White Blood Count 11.2 4.8-10.8 X10*3/uL [...] Diff Reviewed date:01/13/2024 07:58:52 PM Interpretation: Performing Lab:[address] [address] Notes/Report: White Blood Count 12.6 4.8-10.8 X10*3/uL [...] ff Reviewed date:01/13/2024 07:58:52 PM Interpretation: Performing Lab:[address] [address] Notes/Report: White Blood Count 11.1 4.8-10.8 X10*3/uL [...] Panel Reviewed date:01/13/2024 07:58:52 PM Interpretation: Performing Lab:[facility], [address] [place] [address] Notes/Report: Sodium 137 135-145 mmol/L Potassium 3.8 [...] Phosphorus Reviewed date:01/13/2024 07:58:52 PM Interpretation: Performing Lab:[facility], [address] [place] [address] Notes/Report: Phosphorus 3.0 2.7-4.5 mg/dL Magnesium Reviewed date:01/13/2024 07:58:52 PM Interpretation: Performing Lab:[facility], [address] [place] [address] Notes/Report: Magnesium 2.3 1.6-2.6 mg/dL Albumin Level Reviewed date:01/13/2024 07:58:52 PM Interpretation: Performing Lab:[facility], [address] [place] [address] Notes/Report: Albumin Level 3.5 3.5-5.0 g/dL SLIDE REVIEW Reviewed date:01/13/2024 07:58:52 PM Interpretation: Performing Lab:[facility], [address] [place] [phone] Notes/Report: SLIDE REVIEW VERIFIED Venous Blood Gases - POC Reviewed date:01/13/2024 07:58:52 PM Interpretation: Performing Lab:[facility], [address] [place] [address] Notes/Report: VBG pH 7.46 7.32-7.43 METER #: [id number] additional_comment: Jeovany martinez laurenbb henric VBG pCO2 37 METER #: [id number] additional_comment: Jeovany janayprakashraiza ctrbb henric VBG pO2 55 METER #: [id number] additional_comment: Jeovany martinez ctrbb henric VBG Base Excess 3.2 METER #: [id number] additional_comment: Jeovany schwartz VBG HCO3 27 22-26 mmol/L METER #: [id number] additional_comment: Jeovany schwartz VBG O2 % Saturation 87.0 METER #: [id number] additional_comment: Jeovany schwartz Complete Blood Count Auto Di ff Reviewed date:01/13/2024 07:58:52 PM Interpretation: Performing Lab:[facility], [address] [place] [address] Notes/Report: White Blood Count 12.6 4.8-10.8 X10*3/uL [...] ff Reviewed date:01/15/2024 06:02:02 AM Interpretation: Performing Lab:[facility], [address] [place] [phone] Notes/Report: White Blood Count 13.1 4.8-10.8 X10*3/uL [...] ff Reviewed date:01/15/2024 06:02:02 AM Interpretation: Performing Lab:[facility], [address] [place] [address] Notes/Report: White Blood Count 12.1 4.8-10.8 X10*3/uL [...] Hematocrit Reviewed date:01/15/2024 06:02:02 AM Interpretation: Performing Lab:[facility], [address] [place] [address] Notes/Report: Hemoglobin 7.9 14.0-18.0 g/dl Hematocrit 23.5 42.0-52.0 % Basic Metabolic Panel Reviewed date:01/15/2024 06:02:02 AM Interpretation: Performing Lab:[facility], [address] [place] [phone] Notes/Report: Sodium 136 135-145 mmol/L Potassium 3.8 [...] Phosphorus Reviewed date:01/15/2024 06:02:02 AM Interpretation: Performing Lab:[facility], [address] [place] [address] Notes/Report: Phosphorus 2.8 2.7-4.5 mg/dL Magnesium Reviewed date:01/15/2024 06:02:02 AM Interpretation: Performing Lab:[facility], [address] [place] [address] Notes/Report: Magnesium 2.2 1.6-2.6 mg/dL Albumin Level Reviewed date:01/15/2024 06:02:02 AM Interpretation: Performing Lab:[facility], [address] [place] [address] Notes/Report: Albumin Level 3.4 3.5-5.0 g/dL SLIDE REVIEW Reviewed date:01/15/2024 06:02:02 AM Interpretation: Performing Lab:[facility], [address] [place] [address] Notes/Report: SLIDE REVIEW VERIFIED Complete Blood Count no Diff Reviewed date:01/16/2024 08:51:12 AM Interpretation: Performing Lab:[facility], [address] [place] [address] Notes/Report: White Blood Count 12.7 4.8-10.8 X10*3/uL [...] Diff Reviewed date:01/16/2024 08:51:12 AM Interpretation: Performing Lab:[address] [address] Notes/Report: White Blood Count 9.9 4.8-10.8 X10*3/uL [...] Panel Reviewed date:01/17/2024 05:05:01 AM Interpretation: Performing Lab:[address] [address] Notes/Report: Sodium 135 135-145 mmol/L Potassium 4.2 [...] Magnesium Reviewed date:01/17/2024 05:05:01 AM Interpretation: Performing Lab:[facility], [address] [place] [address] Notes/Report: Magnesium 2.3 1.6-2.6 mg/dL Complete Blood Count Auto Di ff Reviewed date:01/18/2024 08:33:04 PM Interpretation: Performing Lab:[facility], [address] [place] [address] Notes/Report: White Blood Count 12.0 4.8-10.8 X10*3/uL [...] te Reviewed date:01/18/2024 08:33:04 PM Interpretation: Performing Lab:[address] [address] Notes/Report: Erythrocyte Sedimentation Rate 92 0-15 MM/HR Patients with polycythemia and many hemoglobin abnormalities may have depressed sed rates whereas patients with anemia may have elevated sed rates. Prothrombin Time INR Reviewed date:01/18/2024 08:33:04 PM Interpretation: Performing Lab:[address] [address] Notes/Report: Prothrombin Time 13.4 10.9-12.4 SEC INTERNATIONAL [...] Panel Reviewed date:01/18/2024 08:33:04 PM Interpretation: Performing Lab:[address] [address] Notes/Report: Sodium 134 135-145 mmol/L Potassium 4.2 [...] Acid Reviewed date:01/18/2024 08:33:04 PM Interpretation: Performing Lab:[facility], [address] [place] [phone] Notes/Report: Lactic Acid 1.3 0.5-2.0 mmol/L C Reactive Protein Reviewed date:01/18/2024 08:33:04 PM Interpretation: Performing Lab:[facility], [address] [place] [address] Notes/Report: C Reactive Protein 14.10 < or = 0.50 mg/dL Lipase Reviewed date:01/18/2024 08:33:04 PM Interpretation: Performing Lab:[facility], [address] [place] [address] Notes/Report: Lipase 24 8-78 U/L SLIDE REVIEW Reviewed date:01/18/2024 08:33:04 PM Interpretation: Performing Lab:[address] [address] Notes/Report: SLIDE REVIEW VERIFIED Blood Culture (First) Reviewed date:01/24/2024 07:41:27 AM Interpretation: Performing Lab:[facility], [address] [place] [address] Notes/Report: Blood Culture (First) No growth after 5 days. Blood Culture (Second) Reviewed date:01/24/2024 07:41:27 AM Interpretation: Performing Lab:[facility], [address] [place] [address] Notes/Report: Blood Culture (Second) No growth after 5 days. US arterial duplex LE RT Reviewed date:01/21/2024 07:35:28 AM Interpretation: Performing Lab: Notes/Report: [facility] [address] [place] [address] Ultrasound Report Signed with Addenda Patient: Zan Encinas MR#: [id number] : 1960 Acct:[id number] Age/Sex: 63 / M ADM Date: 01/18/24 Loc: .ED Attending Dr: Ordering Physician: Yuriy Dunbar Date of Service: 01/18/24 Procedure(s): US arterial duplex LE RT Accession Number(s): [id number] cc: Quinton Callahan MD; Yuriy Dunbar ADDENDUM ADDENDUM #1 Findings were communicated by telephone with Dr. Gerard by Dr. Zarate at 2034 hours. Electronically signed by: Placido Zarate MD 01/18/2024 08:41 PM [facility] Addendum Dictated By: Yuriy Zarate MD Addendum [...] Yuriy Zarate MD in OV> 01/18/242032 DD/ 150 TD/TT: 01/18/241505 Suspender Cutter: BLANCA [place] [address] Ultrasound Report Signed with Addenda Patient: Zan Encinas MR#: [id number] : 1960 Acct:[id number] Age/Sex: 63 / M ADM Date: 01/18/24 Loc: .ED Attending Dr: Ordering Physician: Yuriy Dunbar Date of Service: 01/18/24 Procedure(s): US arterial duplex LE RT Accession Number(s): [id number] cc: Quinton Callahan MD; Yuriy Dunbar ADDENDUM ADDENDUM #1 Findings were communicated by telephone with Dr. Gerard by Dr. Zarate at 2033 hours. Electronically ivania d by: Placido Zarate [...] Yuriy Zarate MD in OV> 01/18/242032 DD/ 150 TD/TT: 01/18/24 1506 Suspender Cutter: BLANCA XR foot RT min 3V Reviewed date:01/18/2024 08:33:04 PM Interpretation: Performing Lab: Notes/Report: [address] [address] XRay Report Signed Patient: Zan Encinas MR#: [id number] : 1960 Acct:[id number] Age/Sex: 63 / M ADM Date: 01/18/24 Loc: .ED Attending Dr: Ordering Physician: Yuriy Dunbar Date of Service: 01/18/24 Procedure(s): XR foot RT min 3V Accession Number(s): [id number] cc: Quinton Callahan MD; Yuriy Dunbar EXAMINATION: [...] 01/18/24 1619 DD/ 1516 TD/TT: 01/18/24 1534 Suspender Cutter: MICHELA [address] [address] XRay Report Signed Patient: Zan Encinas MR#: [id number] : 1960 Acct:[id number] Age/Sex: 63 / M ADM Date: 01/18/24 Loc: HO.ED Attending Dr: Ordering Physician: Yuriy Dunbar Date of Service: 01/18/24 Procedure(s): XR chito t RT min 3V Accession Number(s): [id number] cc: Quinton Callahan MD; Yuriy Dunbar EXAMINATION: [...] by: Kaushal Cohen MD 01/18/2024 04:19 PM [facility] Dictated By: Kaushal Cohen MD Signed By: <Electronically signed by Kaushal Cohen MD in OV> 01/18/24 1619 DD/ 1516 TD/TT: 01/18/24 1534 Suspender Cutter: MICHELA Complete Blood Count no Diff Reviewed date:02/04/2024 11:35:53 AM Interpretation: Performing Lab:[facility], [address] [place] [address] Notes/Report: White Blood Count 11.5 4.8-10.8 X10*3/uL [...] INR Reviewed date:02/04/2024 11:35:53 AM Interpretation: Performing Lab:[address] [address] Notes/Report: Prothrombin Time 13.0 10.9-12.4 SEC INTERNATIONAL [...] Time Reviewed date:02/04/2024 11:35:53 AM Interpretation: Performing Lab:[facility], [address] [place] [phone] Notes/Report: Partial Thromboplastin Time 33.9 26.0-36.8 SEC For information regarding the monitoring of direct thrombin inhibitors, please refer to Pharmacy. Basic Metabolic Panel Reviewed date:02/04/2024 11:35:53 AM Interpretation: Performing Lab:[address] [address] Notes/Report: Sodium 138 135-145 mmol/L Potassium 4.4 [...] Pathology Reviewed date:02/08/2024 08:35:16 AM Interpretation: Performing Lab:[facility], [address] [place] [phone] Notes/Report: ---- Name: Toney Encinas Age/Sex: 63/M : 1960 Unit#: [id number] Attend Dr: Bimal Knott MD Re02/04/24 Status : ADM IN Location: [facility] 364-1 Disch: ---- SPEC : [id number] RECD : 02/04/24-1214 STATUS: YUSUF MATHUR NUM: [id number] FRANTZ: 02/04/24-[address]: Bimal Knott MD [...] label ed ?right leg? is a right gyjyt-hug-qmkg amputation specimen which measures 34.0 cm in [...] No other erosions or ulcers are identified. Info Specialist sections are submitted labeled as follows: A1 and A2 sections f rom the proximal hallux; A3 distal phalangeal bone from the hallux, following decalcification; A4 anterior tibial vessels; A5 posterior tibial vessels; A6 a sample of marjuan w from the margin of resection. Cassettes A3 A4 and A5 are submitted following decalcification. CEDS CONTINUED ON NEXT PAGE ---- Name: Toney Encinas Age/Sex: 63/M : 1960 Unit#: [id number] Attend Dr: Bimal Knott MD Re02/04/24 Status : ADM IN Location: [facility] 364-1 Disch: ---- SPEC : [id number] RECD : 02/04/24 STATUS: YUSUF KEVAN NUM: [id number] FRANTZ: 02/04/[address] [facility] [address]: Bimal Knott MD ENTERED: 02/04/24- 16 SP TYPE: Surgical OTHR DR: Quinton Callahan MD ORDERED: Gross Micro L5 Copies To: Quinton Callahan MD [address] [facility] [place] [id number] Bimal Knott MD [facility] [address] [facility] [address] [place] [address] ---- Signed (signature on file) Val Cris 02/06/24 1550 ---- END OF REPORT Type and Screen Reviewed date:02/04/2024 11:35:53 AM Interpretation: Performing Lab:[facility], [address] [place] [address] Notes/Report: Blood Type OP Antibody Screen NEGATIVE Complete Blood Count no Diff Reviewed date:02/08/2024 08:35:16 AM Interpretation: Performing Lab:[facility], [address] [place] [phone] Notes/Report: White Blood Count 9.4 4.8-10.8 X10*3/uL [...] ff Reviewed date:02/08/2024 08:35:16 AM Interpretation: Performing Lab:[facility], [address] [place] [phone] Notes/Report: White Blood Count 11.2 4.8-10.8 X10*3/uL [...] Panel Reviewed date:02/08/2024 08:35:16 AM Interpretation: Performing Lab:[facility], [address] [place] [address] Notes/Report: Sodium 137 135-145 mmol/L Potassium 3.9 [...] REVIEW Reviewed date:02/08/2024 08:35:16 AM Interpretation: Performing Lab:[facility], [address] [place] [phone] Notes/Report: SLIDE REVIEW VERIFIED Complete Blood Count no Diff Reviewed date:02/08/2024 08:35:16 AM Interpretation: Performing Lab:[facility], [address] [place] [address] Notes/Report: White Blood Count 9.3 4.8-10.8 X10*3/uL [...] Panel Reviewed date:02/08/2024 08:35:16 AM Interpretation: Performing Lab:[address] [address] Notes/Report: Sodium 136 135-145 mmol/L Potassium 3.8 [...] Level Reviewed date:02/08/2024 08:35:16 AM Interpretation: Performing Lab:[facility], [address] [place] [address] Notes/Report: Albumin Level 2.7 3.5-5.0 g/dL Complete Blood Count no Diff Reviewed date:02/08/2024 08:35:16 AM Interpretation: Performing Lab:[facility], [address] [place] [address] Notes/Report: White Blood Count 9.0 4.8-10.8 X10*3/uL [...] Gel Reviewed date:02/08/2024 08:35:16 AM Interpretation: Performing Lab:[facility], [address] [place] [address] Notes/Report: Hold Green Gel See Note Specimen held untested for 24 hours; Call to request Chemistry testing. Complete Blood Count Auto Di ff Reviewed date:05/27/2024 08:42:02 AM Interpretation: Performing Lab:[facility], [address] [place] [address] Notes/Report: White Blood Count 10.9 4.8-10.8 X10*3/uL [...] te Reviewed date:05/27/2024 08:42:02 AM Interpretation: Performing Lab:[facility], [address] [place] [phone] Notes/Report: Erythrocyte Sedimentation Rate 10 0-15 MM/HR Patients with polycythemia and many hemoglobin abnormalities may have depressed sed rates whereas patients with anemia may have elevated sed rates. Comprehensive Met. Panel Reviewed date:05/27/2024 08:42:02 AM Interpretation: Performing Lab:[facility], [address] [place] [address] Notes/Report: Sodium 138 135-145 mmol/L Potassium 4.3 [...] Acid Reviewed date:05/27/2024 08:42:02 AM Interpretation: Performing Lab:[address] [address] Notes/Report: Lactic Acid 1.4 0.5-2.0 mmol/L C Reactive Protein Reviewed date:05/27/2024 08:42:02 AM Interpretation: Performing Lab:[address] [address] Notes/Report: C Reactive Protein 1.01 < or = 0.50 mg/dL Blood Culture (First) Reviewed date:06/07/2024 04:51:50 AM Interpretation: Performing Lab:[address] [address] Notes/Report: Blood Culture (First) No growth after 5 days. Blood Culture (Second) Reviewed date:06/07/2024 04:51:50 AM Interpretation: Performing Lab:[address] [address] Notes/Report: Blood Culture (Second) No growth after 5 days. XR knee RT 4V Reviewed date:05/27/2024 08:42:02 AM Interpretation: Performing Lab: Notes/Report: [address] [address] XRay Report Signed Patient: Zan Encinas MR#: [id number] : 1960 Acct:[id number] Age/Sex: 64 / M ADM Date: 05/26/24 Loc: HO.ED Attending Dr: Ordering Physician: Gt Cruz Date of Service: 05/26/24 Procedure(s): XR knee RT 4V Accession Number(s): [id number] cc: Gt Cruz; Quinton Callahan MD EXAMINATION: XR KNEE, RIGHT CLINICAL INFORMATION: Right stump erythema/pus discharge COMPARISON: 10/01/2023. TECHNIQUE: Four views of the right knee. FINDINGS: There is mild generalized osteopenia. There has been a ijsnk-uoi-wvww amputation. There are no permeative changes involving [...] Alvarado Cortes MD 05/26/2024 03:32 PM EDT Dictated By: Alvarado Cortes MD Signed By: <Electronically signed by Alvarado Cortes MD in OV> 05/26/24 1532 DD/ 1452 TD/TT: 05/26/24 1510 Suspender Cutter: [address] [address] XRay Report Signed Patient: Zan Encinas MR#: [id number] : 1960 Acct:[id number] Age/Sex: 64 / M ADM Date: 05/26/24 Loc: HO.ED Attending Dr: Ordering Physician: Gt Cruz Date of Service: 05/26/24 Procedure(s): XR kne e RT 4V Accession Number(s): [id number] cc: Gt Cruz; Quinton Callahan MD EXAMINATION: XR KNEE, RIGHT CLINICAL INFORMATION: Right stump erythema /pus discharge COMPARISON: 10/01/2023. TECHNIQUE: Four views of the ri ght knee. FINDINGS: There is mild generalized osteopenia. There has been a kkucu-mgx-hxom amputation. There are no permeative changes involving [...] Alvarado Cortes MD 05/26/2024 03:32 PM EDT Dictated By: Alvarado Cortes MD Signed By: <Electronically signed by Alvarado Cortes MD in OV> 05/26/24 1532 DD/ 1452 TD/TT: 05/26/24 1510 Suspender Cutter: Complete Blood Count Auto Di ff Reviewed date:05/27/2024 08:42:02 AM Interpretation: Performing Lab:[facility], [address] [place] [id number] Notes/Report: White Blood Count 9.2 4.8-10.8 X10*3/uL [...] Panel Reviewed date:05/27/2024 08:42:02 AM Interpretation: Performing Lab:[facility], [address] [place] [phone] Notes/Report: Sodium 140 135-145 mmol/L Potassium 3.8 [...] Creatinine Reviewed date:05/27/2024 08:42:02 AM Interpretation: Performing Lab:[facility], [address] [place] [phone] Notes/Report: Creatinine 0.84 0.5-1.4 mg/dL Creatinine Clr [...] Random Reviewed date:05/28/2024 04:55:44 AM Interpretation: Performing Lab:[facility], [address] [place] [phone] Notes/Report: Vancomycin Random 13.2 15-20 mcg/mL MR knee RT wo/w con Reviewed date:05/28/2024 04:55:44 AM Interpretation: Performing Lab: Notes/Report: [address] [address] Magnetic Resonance Report Signed Patient: Zan Encinas MR#: [id number] : 1960 Acct:[id number] Age/Sex: 64 / M ADM Date: 05/26/24 Loc: .S3 376-[address]: Luciano Mari MD Ordering Physician: Keith Menendez MD Date of Service: 05/27/24 Procedure(s): MR knee RT wo/w con Accession Number(s): [id number] cc: Quinton Callahan MD; Keith Menendez MD [...] Alvarado Cortes MD 05/27/2024 04:26 PM EDT Dictated By: Alvarado Cortes MD Signed By: <Electronically signed by Alvarado Cortes MD in [place]> 05/27/24 1626 DD/ 1527 TD/TT: 05/27/24 1549 Suspender Cutter: [address] [address] Magnetic Resonance Report Signed Patient: Zan Encinas MR#: [id number] : 1960 Acct:[id number] Age/Sex: 64 / M ADM Date: 05/26/24 Loc: [facility] [id number]: Alfredo Mari MD Ordering Physician: Keith Menendez MD Date of Service: 05/27/24 Procedure(s): kngenevieve e RT wo/w con Accession Number(s): [id number] cc: Quinton Callahan MD; Keith Menendez MD [...] 05/27/24 1626 DD/ 1527 TD/TT: 05/27/24 1549 Suspender Cutter: Creatinine Reviewed date:05/28/2024 02:19:09 PM Interpretation: Performing Lab:[facility], [address] [place] [address] Notes/Report: Creatinine 0.81 0.5-1.4 mg/dL Creatinine Clr [...] Random Reviewed date:05/30/2024 07:30:54 PM Interpretation: Performing Lab:[facility], [address] [place] [address] Notes/Report: Vancomycin Random 13.4 15-20 mcg/mL Hold Lav - Possible Hematolo gy Reviewed date:05/30/2024 07:30:54 PM Interpretation: Performing Lab:[address] [address] Notes/Report: Hold Lav - Possible Hematology SEE NOTE Specimen will be held untested for 8 hours. Call Hematology if testing is desired. Creatinine Reviewed date:05/30/2024 07:30:54 PM Interpretation: Performing Lab:[facility], [address] [place] [address] Notes/Report: Creatinine 0.79 0.5-1.4 mg/dL Creatinine Clr [...] Kidney Disease: Estimated GFR < 15 mL/min/1.73m2 Complete Blood Count Auto Di ff (Not yet reviewed by provider) Interpretation: Performing Lab:[address] [address] Notes/Report: White Blood Count 8.9 4.8-10.8 X10*3/uL Red Blood Count 5.18 4.60-5.80 X10*6/uL Hemoglobin 15.8 14.0-18.0 g/dl Hematocrit 47.4 42.0-52.0 % Mean Corpuscular Volume 91.5 80.0-98.0 fL Mean Corpuscular Hemoglobin 30.5 27.0-33.0 pg Mean Corpuscular HGB Conc 33.3 31.0-36.0 g/dl Red Cell Distribution Width 13.0 11.0-16.0 % Platelet Count 286 160-400 X10*3/uL Mean Platelet Volume 9.6 9.4-12.4 fL Neutrophils Percent Auto 69.3 45-73 % Imm Gran Pct Auto 0.5 0.0-0.4 % Lymphocytes Percent Auto 16.4 20-40 % Monocytes Percent Auto 9.3 2-11 % Eosinophils Percent Auto 3.7 0-4 % Basophils Percent Auto 0.8 0-2 % NRBC Pct Auto 0.0 0.0-0.2 /100WBC Neutrophils Absolute Auto 6.1 2.0-8.3 x10*3/uL Imm Gran Abs Auto 0.04 0.00-0.03 X10*3/uL Lymphocytes Absolute Auto 1.5 1.2-4.9 X10*3/uL Monocytes Absolute Auto 0.8 0.1-1.2 X10*3/uL Eosinophils Absolute Auto 0.3 0.0-0.4 X10*3/uL Basophils Absolute Auto 0.1 0.0-0.2 X10*3/uL NRBC Abs Auto 0.000 0.0-0.012 X10*3/uL Creatinine (Not yet reviewe d by provider) Interpretation: Performing Lab:[facility], [address] [place] [address] Notes/Report: Creatinine 1.10 0.5-1.4 mg/dL Estimated Glomerular Filt Rate > 60 Chronic Kidney Disease: Estimated GFR < 60 mL/min/1.73m2 Severe Kidney Disease: Estimated GFR < 15 mL/min/1.73m2 Vancomycin Trough (Not yet r eviewed by provider) Interpretation: Performing Lab:[facility], [address] [place] [address] Notes/Report: Vancomycin Trough 20.4 10.0-20.0 mcg/mL Reason For Referral No Information Medications Medication [...] tablet by mouth once daily Active Nystatin 781051 UNIT/GM 1 application Ex ternally Twice a day 12/21/2023 Active Metoprolol Succinate ER 25 MG 1 tablet Orally Once a day Active Eliquis 5 MG 1 Tablet Orally twic e a day Active ASA 1 tab Oral Active Tylenol 325 MG 1 tablet as needed O rally every 4 hrs Active ibuprofen 1 tab Oral Active Gabapentin 400 MG 1 capsule Orally fou r times a day 10/31/2023 Active Tamsulosin HCl 0.4 MG Take 2 capsules by mouth once daily Active Vancomycin HCl 10 GM Intravenous Active Breo Ellipta 200-25 MCG/ACT INHALE 1 [...] Problem Status W/U Status Risk Notes Problem 049868707 Overweight (E66.3) Active confirmed His body mass index is 29. We discussed diet and nutrition. I recommended aggressive weight loss and sodium restriction. Problem 993747394 Mixed hyperlipidemia (E78.2) Active confirmed A comprehensive laboratory database with a fasting lipid profile will be obtained. He was continued on his currrent meddications. Problem 08925545 Chronic obstructive pulmonary disease, unspecified COPD type (J44.9) Active confirmed He has resumed smoking 5 cigarettes per day. He was counseled about this and made aware of the smoking cessation programs in the area. Problem 90408277 Tobacco dependence (F17.200) Active confirmed I have counseled him about smoking cessation and offered to refer him to smoking cessation programs in the community. He said he would consider this and try to cut down. Problem Left bundle branch block (I44.7) Active confirmed The mortician helper's interpretation of the perfusion test was that the defect in the septum may be due to the bundle branch block. I will discuss this with cardiology. Problem 12457383 Hiatal hernia (K44.9) Active confirmed The symptoms of his esophageal reflux and hiatal hernia well controlled with current medications. No change in his regimen as needed. Problem 859597655 Peripheral arterial disease (I73.9) Active confirmed He is seeing the vascular surgeon rita 2 weeks. 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 The plan is to fit him for a prosthesis. He denies any ulcers or claudication in the left leg. Problem Hoarseness (25291974) Hoarseness (R49.0) Active confirmed He will be referred to ENT for indirect laryngoscopy. Problem 9165685 Umbilical hernia without obstruction and without gangrene (K42.9) Active confirmed This is asymptomatic and requires no treatment at this time. Problem 004137862 Benign prostatic hyperplasia with lower urinary tract symptoms (N40.1) Active confirmed The tamsulosin was continued today. He will notify me if his symptoms worsen. He has had no retention. He has symptoms of prostatism. Problem 017432448 Acute right-sided low back pain with right-sided sciatica (M54.41) Active confirmed His back pain continues and I have increased the gabapentin. Problem 685744460 Palmer's esophagus determined by endoscopy (K22.70) Active confirmed He is due for an endoscopy and was referred back to his gastroenterolog ist, Dr. Quinton Campos. 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 Problem 93607135913439848 Carpal tunnel syndrome on both sides (G56.03) Active confirmed He has a history of carpal tunnel syndrome treated by Dr. Raphael. He is currently asymptomatic. Vital Signs Heart Rate 46 /min 06/12/2024 Temperature 98.6 degrees Fahrenheit 06/12/2024 Blood pressure diastolic 75 mm Hg 06/12/2024 Height 73 in 06/12/2024 Blood pressure systolic 138 mm Hg 06/12/2024 Weight 193 lbs 06/12/2024 BMI 25.46 kg/m2 06/12/2024 Encounters Encounter Location Date Provider Diagnosis Quinton Callahan III, MD [address] [place] [address] [place] [phone] 07/09/2023 Quinton Callahan Peripheral arterial disease I73.9 ; Benign prostatic hyperplasia with lower urinary tract symptoms N40.1 ; Palmer's esophagus determined by endoscopy K22.70 ; Chronic obstructive pulmonary disease, unspecified COPD type J44.9 ; Hiatal hernia K44.9 ; Tobacco dependence F17.200 and Overweight E66.3 Quinton Callahan III, MD [address] [place] [address] [place] [address] 07/24/2023 Quinton Callahan Peripheral arterial disease I73.9 ; Hiatal hernia K44.9 ; Splenic vein thrombosis I82.890 ; Palmer's esophagus determined by endoscopy K22.70 ; Benign prostatic hyperplasia with lower urinary tract symptoms N40.1 ; Tobacco dependence F17.200 ; Hoarseness R49.0 and Left bundle branch block I44.7 Quinton Callahan III, MD [address] [place] [address] [place] [address] 08/08/2023 Quinton Callahan Peripheral arterial disease I73.9 ; Benign prostatic hyperplasia with lower urinary tract symptoms N40.1 ; Palmer's esophagus determined by endoscopy K22.70 ; Chronic obstructive pulmonary disease, unspecified COPD type J44.9 ; Tobacco dependence F17.200 and Overweight E66.3 Quinton Callahan III, MD [address] [place] [address] [place] [address] 08/27/2023 Quinton Callahan Peripheral arterial disease I73.9 ; Benign prostatic hyperplasia with lower urinary tract symptoms N40.1 ; Palmer's esophagus determined by endoscopy K22.70 ; Chronic obstructive pulmonary disease, unspecified COPD type J44.9 ; Overweight E66.3 ; Tobacco dependence F17.200 and Mixed hyperlipidemia E78.2 Quinton Callahan III, MD [address] [place] [address] [place] [address] 09/19/2023 Quinton Callahan Peripheral arterial disease I73.9 ; Open wound T14.8XXA ; Benign prostatic hyperplasia with lower urinary tract symptoms N40.1 ; Palmer's esophagus determined by endoscopy K22.70 ; Chronic obstructive pulmonary disease, unspecified COPD type J44.9 ; Tobacco dependence F17.200 and Mixed hyperlipidemia E78.2 Quinton Callahan III, MD [address] [place] [address] [place] [address] 09/24/2023 Quinton Callahan Peripheral arterial disease I73.9 ; Edema of right lower extremity R60.0 ; Palmer's esophagus determined by endoscopy K22.70 ; Benign prostatic hyperplasia with lower urinary tract symptoms N40.1 ; Overweight E66.3 and Tobacco dependence F17.200 Quinton Callahan III, MD [address] [place] [address] [place] [address] 10/15/2023 Quinton Callahan Peripheral arterial disease I73.9 ; Palmer's esophagus determined by endoscopy K22.70 ; Chronic obstructive pulmonary disease, unspecified COPD type J44.9 ; Tobacco dependence F17.200 and Mixed hyperlipidemia E78.2 Quinton Callahan III, MD [address] [place] [address] [place] [address] 10/31/2023 Quinton Callahan Peripheral arterial disease I73.9 ; Benign prostatic hyperplasia with lower urinary tract symptoms N40.1 ; Palmer's esophagus determined by endoscopy K22.70 ; Chronic obstructive pulmonary disease, unspecified COPD type J44.9 ; Tobacco dependence F17.200 ; Mixed hyperlipidemia E78.2 ; Acute right-sided low back pain with right-sided sciatica M54.41 and Overweight E66.3 Quinton Callahan III, MD [address] [place] [address] [place] [address] 12/28/2023 Quinton Callahan Peripheral arterial disease I73.9 ; Chronic obstructive pulmonary disease, unspecified COPD type J44.9 ; Benign prostatic hyperplasia with lower urinary tract symptoms N40.1 ; Palmer's esophagus determined by endoscopy K22.70 ; Hiatal hernia K44.9 ; Overweight E66.3 ; Tobacco dependence F17.200 and Mixed hyperlipidemia E78.2 Quinton Callahan III, MD [address] [place] [address] [place] [address] 06/12/2024 Quinton Callahan Peripheral arterial disease I73.9 ; Benign prostatic hyperplasia with lower urinary tract symptoms N40.1 ; Palmer's esophagus determined by endoscopy K22.70 ; Chronic obstructive pulmonary disease, unspecified COPD type J44.9 ; Overweight E66.3 ; Tobacco dependence F17.200 and Mixed hyperlipidemia E78.2 Quinton Callahan III, MD [address] [place] [address] [place] [address] 07/24/2023 Quinton Callahan III, MD [address] [place] [address] [place] [address] 08/02/2023 Quinton Callahan III, MD [address] [place] [address] [place] [address] 08/09/2023 Quinton Callahan III, MD [address] [place] [address] [place] [address] 08/16/2023 Quinton Callahan III, MD [address] [place] [address] [place] [address] 08/20/2023 Quinton Callahan III, MD [address] [place] [address] [place] [address] 11/27/2023 Quinton Callahan III, MD [address] [place] [address] [place] [address] 12/18/2023 Quinton Callahan III MD [address] [place] [address] [place] [address] 12/21/2023 Quinton Callahan III, MD [address] [place] [address] [place] [address] 12/21/2023 Quinton Callahan III, MD [address] [place] [address] [place] [address] 02/12/2024 Quinton Callahan III, MD [address] [place] [address] [place] [address] 03/04/2024 Quinton Callahan III, MD [address] [place] [address] [place] [address] 05/02/2024 Quinton Callahan III, MD [address] [place] [address] [place] [address] 05/02/2024 Quinton Callahna Peripheral arterial disease I73.[address] [id number] 06/02/2024 Quinton Callahan Assessments Encounter Date Diagnosis (ICD Code) Assessment Notes Treat ment Notes Treatment Clinical Notes 07/09/2023 Peripheral arterial disease (ICD-10 - I73.9) [...] and pink but swollen with edema extending chcf up the right leg which is also [...] endoscopy and was referred back to his wedding makeup artist, Dr. Quinton Campos. 10/31/2023 Peripheral arterial disease [...] to keep the leg down interarterial position. 06/12/2024 Peripheral arterial disease (ICD-10 - I73.9) He is seeing the vascular surgeon eevery 2 [...] no retention. He has symptoms of prostatism. 05/02/2024 Peripheral arterial disease (ICD-10 - I73.9) 07/09/2023 Palmer's esophagus determined by endoscopy (ICD-10 - K22.70) He is due for an endoscopy and was referred back to his wedding makeup artist, Dr. Quinton Campos. 07/24/2023 Splenic vein thrombosis (ICD-10 - I82.890) There have been no further signs of thromboembolism. 08/08/2023 Palmer's esophagus determined by endoscopy (ICD-10 - K22.70) He is due for an endoscopy and was referred back to his wedding makeup artist, Dr. Quinton Campos. 08/27/2023 Palmer's esophagus determined by endoscopy (ICD-10 - K22.70) He is due for an endoscopy and was referred back to his wedding makeup artist, Dr. Quinton Campos. 09/19/2023 Benign prostatic hyperplasia with lower urinary tract symptoms (ICD-10 - N40.1) The tamsulosin was continued today. He will notify me if his symptoms worsen. He has had no retention. He has symptoms of prostatism. 09/24/2023 Palmer's esophagus determined by endoscopy (ICD-10 - K22.70) He is due for an endoscopy and was referred back to his wedding makeup artist, Dr. Quinton Campos. 10/15/2023 Chronic obstructive pulmonary disease, unspecified COPD type (ICD-10 - J44.9) He has resumed smoking 5 cigarettes per day. He was counseled about this and made aware of the smoking cessation programs in the area. 10/31/2023 Palmer's esophagus determined by endoscopy (ICD-10 - K22.70) He is due for an endoscopy and was referred back to his wedding makeup artist, Dr. Quinton Campos. 12/28/2023 Benign prostatic hyperplasia with lower urinary tract symptoms (ICD-10 - N40.1) The tamsulosin was continued today. He will notify me if his symptoms worsen. He has had no retention. He has symptoms of prostatism. 06/12/2024 Palmer's esophagus determined by endoscopy (ICD-10 - K22.70) He is due for an endoscopy and was referred back to his wedding makeup artist, Dr. Quinton Campos. 07/09/2023 Chronic obstructive pulmonary disease, unspecified COPD [...] endoscopy and was referred back to his wedding makeup artist, Dr. Quinton Campos. 08/08/2023 Chronic obstructive pulmonary [...] endoscopy and was referred back to his wedding makeup artist, Dr. Quinton Campos. 09/24/2023 Benign prostatic hyperplasia [...] endoscopy and was referred back to his wedding makeup artist, Dr. Quinton Campos. 06/12/2024 Chronic obstructive pulmonary disease, unspecified COPD type (ICD-10 - J44.9) He has resumed smoking 5 cigarettes per day. He was counseled about this and made aware of the smoking cessation programs in the area. 07/09/2023 Hiatal hernia (ICD-10 - K44.9) The [...] No change in his regimen as needed. 06/12/2024 Overweight (ICD-10 - E66.3) His body mass index is 29. We discussed diet and nutrition. I recommended aggressive weight loss and sodium restriction. 07/09/2023 Tobacco dependence (ICD-10 - F17.200) I [...] consider this and try to cut down. 07/09/2023 Overweight (ICD-10 - E66.3) His body [...] was continued on his currrent meddications. 07/24/2023 Left bundle branch block (ICD-10 - I44.7) The mortician helper's interpretation of the perfusion test was that [...] PCR 09/29/2019 Complete Blood Count Auto Diff 5 Creatinine 06/30/2024 Vancomycin Trough 06/30/2024 Next Appt Details Provider Name:Quinton Callahan, 07/10/2024 11:45:00 AM, [address] [place] [address] [address], [place], [address], Provider Name:Quinton Callahan, 10/15/2024 11:00:00 AM, [address] [place] [address] [address], [facility] [place], [address], Insurance Providers Payer Name Payer Address Payer Phone Subscriber Number Group Number Insured Name Patient Relationship to Insured Coverage Start Date Coverage End Date [employer] [address] [place] [phone] [id number] Zan Olivo Self - patient is the insured 4 MEDICARE NGS [address] [place] [phone] [id number] Alcon mcnally Zan Self - patient is the insured Medical (General) History Medical History History ICD Code Barretts esophagus without dysplasia K22 .70 clot in splenic veins COPD (chronic obstructive pulmonary dise ase) J44.9 benign prostatic hypertrophy tobacco dependence GERD thrombus splenic vein 2000 history of cardiac irregularity umbilical hernia hiatal hernia low back pain history of carpal tunnel syndrome overweight right calf claudication 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 Quinton Campos, Palmer's esophagus 2014 upper endoscopy and colonosc opy, [facility], Dr. 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
--- OUTSIDE RECORDS SUMMARY | 2024-06-30 12:10 | XMS_ITS | Patient Health Record ---
Author Organization [facility] Address [address] [place] [address] Care Team Providers Care Flood Control Engineer Name Role Phone Quinton Callahan MD Primary Care Provider Quinton Mao Unavailable [phone] Reason For Referral No Information Medications Medication [...] Problem Status W/U Status Risk Notes Problem 233604259 Encounter for screening for malignant neoplasm of colon (Z12.11) Active confirmed Problem 689214891 Palmer's esopha xu without dysplasia (K22.70) Active confirmed Problem 695804927 Gastroesophageal reflux disease without esophagitis (K21.9) Active confirmed Encounters Encounter Location Date Provider Diagnosis [facility] [address] [place] [address] 08/14/2023 Quinton Campos Plan Of Treatment Future Test Test Name Order Date UPPER GI ENDOSCOPY 03/19/2013 UPPER GI ENDOSCOPY 06/11/2019 COLONOSCOPY 06/11/2019 Insurance Providers Payer Name Payer Address Payer Phone Subscriber Number Group Number Insured Name Patient Relationship to Insured Coverage Start Date Coverage End Date MEDICARE OF [place] [address] [place] [address] [id number] JUAN FRANCISCO HOWELL Self - patient is [...]
--- OUTSIDE RECORDS SUMMARY | 2024-06-30 12:10 | XMS_ITS ---
Author Organization Quinton Callahan III, MD Address [address] [place] [address] Care Team Providers Care Materials Tech Name Role Phone Quinton Callahan Primary Care [...] Date Provider Diagnosis Quinton Callahan III, MD [address] [place] [address] [place] [address] 05/02/2024 Quinton Callahan Peripheral arterial disease I73.9 Assessments Encounter Date Diagnosis (ICD Code) Assessment Notes Treatment Notes Treatment Clinical Notes 05/02/2024 Peripheral arterial disease (ICD-10 - I73.9) Plan Of Treatment Medication Medication Name Sig Start Date Stop Date Notes Metoprolol Succinate ER 25 MG 1 tablet O rally Once a day for 30 days Next Appt Details Provider Name:Quinton Callahan, 07/10/2024 11:45:00 AM, [address] [place] [address] [place], [address], Provider Name:Quinton Callahan, 10/15/2024 11:00:00 AM, [address] [place] [address] [place], [address], Progress Notes * Katie ENCINASOB:1960 (64 yo M)Acc No.[id number]:05/02/2024 Patient:?Zan ENCINAS :1960???Age:64 Y???Sex:Male Address:[address] [place] [address], [facility], [place], [address] * Refills? Refill Metoprolol Succinate ER Tablet Extended Release 24 Hour, 25 MG, Orally, 30 Tablet, 1 tablet, Once a day, 30 days, Refills=11 * true * Date:? Generated for Tristen bustamante/Jai/eTransmitting on:?06/30/2024 12:10 PM EDT
--- OUTSIDE RECORDS SUMMARY | 2024-06-30 12:10 | XMS_ITS | Encounter Summary ---
Author Organization [facility] Address [address] [place] [address] [place] [address] Phone Care Team Providers Care Kosher Dietary Service Supervisor Name Role Phone Quinton Callahan MD Primary Care Provider +1- [phone] Encounter Details Date Type Department Care Team (Late st Contact Info) Description 11/28/2023 Procedure Pass [facility] [address] [place] [address] Social History Tobacco Use Types Packs/Day Years [...] on filedocumented in this encounter Care Teams Kosher Dietary Service Supervisor Relationship Specialty Start Date End Date Quinton Callahan MD [address] [place] [address] PCP - General Medical Oncology 11/23/23 documented as of this encounter Additional Source Comments The information contained in this document represents components of the legal health record. It is not the complete legal health record.[facility]
--- OUTSIDE RECORDS SUMMARY | 2024-06-30 12:10 | XMS_ITS ---
Author Organization [facility] Address [address] [place] [address] Care Team Providers Care Fuels Engineer Name Role Phone [place] MORIN, Quinton Primary Care Provider Unavailab Quinton Alvarez [phone] REASON FOR VISIT Patient presents today for EGD, NUGENT'S ESOPHAGUS Encounters Encounter Location Date Provider Diagnosis [facility] [address] [place] [address] 08/14/2023 Quinton Campos Plan Of Treatment No Information Progress Notes * SHAUNA HERNANDEZHDOB:1960 (64 yo M)Acc No.[id number]:08/14/2023 Progress Notes Patient:?JUAN FRANCISCO HERNANDEZ Provider:?Quinton Campos MD :1960???Age:63 Y???Sex:Male Duc e:08/14/2023 Address:[address] [place] [address] [id number] Pcp:Quinton Callahan MD Subjective: * Chief Complaints: [...] MD Date:? 024 Generated for Printi ng/Faxing/eTransmitting on:?06/30/2024 12:09 PM EDT
--- OUTSIDE RECORDS SUMMARY | 2024-06-30 12:10 | XMS_ITS | Encounter Summary ---
Author Organization [facility] Address [address] [place] [address] [place] [address] Phone Care Team Providers Care Wall Cleaner Name Role Phone Quinton Callahan MD Primary Care Provider +1- [phone] Encounter Details Date Type Department Care Team (Late st Contact Info) Description 11/28/2023 Procedure Pass [facility] [address] [place] [address] Social History Tobacco Use Types Packs/Day Years [...] on filedocumented in this encounter Care Teams Wall Cleaner Relationship Specialty Start Date End Date Quinton Callahan MD [address] [place] [address] PCP - General Medical Oncology 11/23/23 documented as of this encounter Additional Source Comments The information contained in this document represents components of the legal health record. It is not the complete legal health record.[facility]
--- OUTSIDE RECORDS SUMMARY | 2024-06-30 12:10 | XMS_ITS | Encounter Summary ---
Author Organization [facility] Address [address] [place] [address] [place] [phone] Phone Care Team Providers Care Intelligence Group Supervisor Name Role Phone Quinton Callahan MD Primary Care Provider [phone]- [phone] Encounter Details Date Type Department Care Team (Late st Contact Info) Description 11/28/2023 Procedure Pass [facility] [address] [place] [address] Social History Tobacco Use Types Packs/Day Years [...] on filedocumented in this encounter Care Teams Intelligence Group Supervisor Relationship Specialty Start Date End Date Quinton Callahan MD [address] [place] [id number] PCP - General Medical Oncology 11/23/23 documented as of this encounter Additional Source Comments The information contained in this document represents components of the legal health record. It is not the complete legal health record.[facility]
--- OUTSIDE RECORDS SUMMARY | 2024-06-30 12:10 | XMS_ITS | Encounter Summary ---
Author Organization [facility] Address [address] [place] [address] [place] [phone] Phone Care Team Providers Care Deputy Commonwealth'S Attorney Name Role Phone Quinton Callahan MD Primary Care Provider [phone]- [phone] Encounter Details Date Type Department Care Team (Late st Contact Info) Description 11/28/2023 Procedure Pass [facility] [address] [place] [address] Social History Tobacco Use Types Packs/Day Years [...] on filedocumented in this encounter Care Teams Deputy Commonwealth'S Attorney Relationship Specialty Start Date End Date Quinton Callahan MD [address] [place] [id number] PCP - General Medical Oncology 11/23/23 documented as of this encounter Additional Source Comments The information contained in this document represents components of the legal health record. It is not the complete legal health record.[facility]
== END 2024-06-30 11:55 | disposition home or self-care (01) ==
LOC: HO.HID 10:41
PROVIDERS: PCP Internal Medicine Medical Oncology; Visit Provider Internal Medicine
DX: M86.9 Osteomyelitis, unspecified (principal)
CPT/HCPCS: 99213

== ENCOUNTER 2024-06-30 10:41 | Outpatient (REF) | payer MEDICARE, SELFPAY ==
[2024-06-30 11:47] LABS: MANUAL DIFF FLAG NO
[2024-06-30 11:49] LABS: Basophils Absolute Auto 0.1 X10*3/uL (0.0-0.2); Basophils Percent Auto 0.8 % (0-2); Eosinophils Absolute Auto 0.3 X10*3/uL (0.0-0.4); Eosinophils Percent Auto 3.7 % (0-4); Hematocrit 47.4 % (42.0-52.0); Hemoglobin 15.8 g/dl (14.0-18.0); Imm Gran Abs Auto 0.04 X10*3/uL (0.00-0.03); Imm Gran Pct Auto 0.5 % (0.0-0.4); Lymphocytes Absolute Auto 1.5 X10*3/uL (1.2-4.9); Lymphocytes Percent Auto 16.4 % (20-40); Mean Corpuscular HGB Conc 33.3 g/dl (31.0-36.0); Mean Corpuscular Hemoglobin 30.5 pg (27.0-33.0); Mean Corpuscular Volume 91.5 fL (80.0-98.0); Mean Platelet Volume 9.6 fL (9.4-12.4); Monocytes Absolute Auto 0.8 X10*3/uL (0.1-1.2); Monocytes Percent Auto 9.3 % (2-11); Neutrophils Absolute Auto 6.1 x10*3/uL (2.0-8.3); Neutrophils Percent Auto 69.3 % (45-73); Platelet Count 286 X10*3/uL (160-400); Red Blood Count 5.18 X10*6/uL (4.60-5.80); White Blood Count 8.9 X10*3/uL (4.8-10.8)
[2024-06-30 12:05] LABS: Estimated Glomerular Filt Rate > 60
[2024-06-30 12:06] LABS: Vancomycin Trough 20.4 mcg/mL (10.0-20.0)
--- OUTSIDE RECORDS SUMMARY | 2024-06-30 13:19 | XMS_ITS ---
Author Organization Quinton Callahan III, MD Address [address] [place] [address] Care Team Providers Care Utilization Review Rn Name Role Phone Quinton Callahan Primary Care Provider [phone] REASON FOR VISIT Message Social History Sex Assigned At : Social History Observation Description Sex Assigned At Male Encounters Encounter Location Date Provider Diagnosis [address] [id number] 06/02/2024 Quinton Callahan Plan Of Treatment Next Appt Details Provider Name:Quinton Callahan, 07/10/2024 11:45:00 AM, [address] [place] [address] [place], [address], Provider Name:Quinton Callahan, 10/15/2024 11:00:00 AM, [address] [place] [address] [place], [address], Progress Notes * ENCINASJuan RAMOSrheahDOB:1960 (64 yo M)Acc No.[id number]:06/02/2024 Patient:?Zan ENCINAS :1960???Age:64 Y???Sex:Male Address:[address] [place] [address], [facility] [address], [place], [address] * true * Date:? Generated for Printi ng/Faxing/eTransmitting on:?06/30/2024 01:19 PM EDT
== END 2024-06-30 10:42 | disposition home or self-care (01) ==
LOC: HO.LAB 10:41
PROVIDERS: PCP Internal Medicine Medical Oncology; Visit Provider Internal Medicine
DX: M86.9 Osteomyelitis, unspecified (principal)
CPT/HCPCS: 36415; 80202; 82565; 85025; 99212

== ENCOUNTER 2024-07-10 12:54 | Outpatient (AMB) | payer MEDICARE, SELFPAY ==
--- NOTE | 2024-07-10 12:57 | A.OFFVIS_ITS ---
Intake Visit Reasons: 1 month follow up R leg check Intake Note: 1 mo follow up Right BKA non-healing wound. Pt states IV vanco is complete and per ID started PO doxycycline. Pt states had consult w/ ID and states she recommended debridement or AKA. Physician Extender Required: No Accompanied by: Self / Same As Patient Allergies No Known Allergies Allergy (Verified 07/10/24 13:06) HPI HPI 1 month follow up R leg check: Details: Zan is presenting today for a 1m follow up s/p right BKA, performed on 02/03. His recovery has been complicated with osteo, diagnosed on 05/26/24. He has completed 6w of Vanco, ending on 07/07. He recently was seen by ID, who recommended continuing with 2m of oral Doxy bid. Juan states the site looks be tter with less drainage. He states that when the bandage used to fill up within one day of drainage, it only saturates a small portion. He denies any fever or chills. He states the his leg feels good without any swelling or redness. He is happy with how it has been progressing. He has concerns today due to the ID provider stating that he may need an AKA to fully recover from the osteo. He continues with VNA services once a week but has been doing his own dressing changes. [facility] Medical History Osteomyelitis Krish angina Left bundle branch block Bakers cyst Nicotine dependence, cigarettes, uncomplicated Arthritis BPH (benign prostatic hyperplasia) Elevated cholesterol Complex regional pain syndrome i of right lower limb S/P angiogram of extremity (07/18/23) Atrial fibrillation History of Palmer's esophagus Splenic vein thrombosis History of femoral angiogram GERD (gastroesophageal reflux disease) COPD (chronic obstructive pulmonary disease) Peripheral arterial disease Surgical History History of tonsillectomy Hx of oral surgery Hx of tracheostomy History of esophagogastroduodenoscopy (EGD) H/O colonoscopy Social History Household Members: None Household Members Other:: Son, son girlfriend, grandbaby Housing: House Housing Other:: 3 stairs to climb Are you a primary manager home healthcare to a significant other at home: No Do you presently have visiting nurse or other home services: Yes Comment: Dr Knott made aware of absent pulse and sensation in right foot Patient Tobacco Use Status: Current everyday Tobacco user Tobacco use type: Cigarette Cigarette Packs Per Day: 0.5 Cigarettes Per Day: 10 Years Smoked: 50 e-Cigarette/Vaping Use: Currently Using Second Hand Smoke Exposure: No Substance Use Type: Marijuana service: No Review of Systems Const Reports as per HPI and Denies weakness ENT Reports Normal hearing present and Denies dizziness Card Reports as per HPI, Denies chest pain, Denies chest pain at rest, Denies chest pain with activity, Denies dyspnea and Denies dyspnea on exertion Resp Reports as per HPI, Denies cough, Denies dyspnea and Denies dyspnea on exertion GI Reports as per HPI, Denies abdominal pain, Denies nausea and Denies vomiting Musc Denies numbness Skin/Breast Reports as per HPI, Denies erythema and Denies wounds Neuro Reports Normal hearing present, Denies dizziness, Denies numbness, Denies Sensory deficit (Neuro) and Denies weakness Psych Reports no additional complaints Endo Reports no additional complaints Physical Exam Const General: healthy appearing and no acute distress Orientation/consciousness: patient oriented x3 HEENT Head: Yes normal to inspection Ears: hearing grossly normal bilaterally Mouth: Normal oral and palatal mucosa present Resp Effort & Inspection: normal respiratory effort and able to speak in complete sentences Auscultation: clear to auscultation bilaterally Cardio Jugular venous distension: no JVD Rate: regular rate Rhythm: regular rhythm Heart sounds: S1 normal heart sound present and S2 normal heart sound present Bruits: no abdominal aortic bruits, no carotid bruits, no femoral bruits and no renal bruits Peripheral pulses: Peripheral pulses 2+ throughout GI Inspection: Yes normal to inspection Palpation (GI): No Abdominal aortic bruit present Skin General skin exam: no rashes or lesions noted Wounds: no wounds Hair: normal Neuro General: patient oriented x3 Cranial nerves: Yes Normal hearing present Cognition (Neuro): normal cognition Gait exam (Neuro): Normal gait present Motor exam (neuro): 5/5 motor strength present throughout Sensory Exam: No Sensory deficit (Neuro) Extrem Other: Right BKA site: small amount of drainage noted on bandage, none noted with bandage off. The site is measuring 0.7x0.4x0.2 (able to touch bone with qtip), slightly longer than previous visit appx 1m ago. No drainage noted the entire time the site was open, appx 30min. No erythema or swelling noted. Not painful to palpation. General: Yes normal to inspection, Yes full ROM, Yes capillary refill normal and Yes normal gait Assessment & Plan Assessment & Plan (1) Below-knee amputation of right lower extremity: Code(s): S88.111A - Complete traumatic amputation at level between knee and ankle, right lower leg, initial encounter Category: Medical Qualifiers: Encounter type: subsequent encounter Qualified Code(s): S88.111D - Complete traumatic amputation at level between knee and ankle, right lower leg, subsequent encounter Plan: Zan is presenting today on a follow up to osteo in his right BKA site. The BKA was performed on 02/03 and he had been healing well until 05/26, when he began having swelling, increased pain, and erythema around the BKA site. He was found to have osteo and sent home with 6w of [facility]. He has since seen ID, whom has switched him to oral Doxy bid for 2m. I discussed with him the importance of taking an oral probiotic daily and eating yogurt to protect his gut health. We had a lengthy discussion about the AKA that was mentioned at the ID visit; we do not believe that we are at that point yet. We will have him continue to take the oral abx, keep the wound clean and dry with daily dressing changes if needed, and close follow up with us. We discussed that if he gets fever, chills, and body aches and there is any swelling, erythema, or increased pain at the BKA site, to reach out to us. We will have him follow up in 3w. If there are any questions or concerns, please do not hesitate to reach out to us. Coding Level of Care Code Est Pt Level 3 (48227) Diagnoses Below-knee amputation of right lower extremity, subsequent encounter S88.111D Encounter type: subsequent encounter
--- OUTSIDE RECORDS SUMMARY | 2024-07-10 13:30 | XMS_ITS ---
Author Organization Quinton Callahan III, MD Address [address] [place] [address] Care Team Providers Care Cafe Or Restaurant Manager Name Role Phone Quinton Callahan Primary Care Provider [phone] REASON FOR VISIT Message Social History Sex Assigned At : Social History Observation Description Sex Assigned At Male Encounters Encounter Location Date Provider Diagnosis [address] [id number] 06/02/2024 Quinton Callahan Plan Of Treatment Next Appt Details Provider Name:Quinton Callahan, 09/09/2024 11:30:00 AM, [address] [place] [address] [place], [address], Provider Name:Quinton Callahan, 10/15/2024 11:00:00 AM, [address] [place] [address] [place], [address], Progress Notes * ENCINASJuanrheahDOB:1960 (64 yo M)Acc No.[id number]:06/02/2024 Patient:?Zan ENCINAS :1960???Age:64 Y???Sex:Male Address:[address] [place] [address], [facility], [place], [address] * true * Date:? Generated for Printi ng/Faxing/eTransmitting on:?07/10/2024 01:30 PM EDT
--- OUTSIDE RECORDS SUMMARY | 2024-07-10 13:30 | XMS_ITS | Encounter Summary ---
Author Organization [facility] Address [address] [place] [address] [place] [address] Phone Care Team Providers Care Private Secretary Name Role Phone Quinton Callahan MD Primary Care Provider +1- [phone] Encounter Details Date Type Department Care Team (Late st Contact Info) Description 12/08/[address] [facility] EKG [address] [place] [address] Social History Tobacco Use Types Packs/Day Years [...] Assigned at Male 11/23/2023 11:14 AM EDT Legal Sex Male 5:43 PM EDT Gender Identity Male 11/23/2023 11:14 AM EDT Sexual Orientation Straight 11/23/2023 11 :14 AM EDT documented as of this encounter Plan of Treatment Not on file documented as of this encounter Visit Diagnoses Not on filedocumented in this encounter Care Teams Private Secretary Relationship Specialty Start Date End Date Quinton Callahan MD [address] [place] [address] PCP - General Medical Oncology 11/23/23 documented as of this encounter Additional Source Comments The information contained in this document represents components of the legal health record. It is not the complete legal health record.[facility]
--- OUTSIDE RECORDS SUMMARY | 2024-07-10 13:30 | XMS_ITS ---
Author Organization [facility] Address [address] [place] [address] Care Team Providers Care Management Accounts Manager Name Role Phone London MORIN, Quinton Primary Care Provider Unavailab Quinton Alvarez Unavailable [phone] REASON FOR VISIT no show Encounters Encounter Location Date Provider Diagnosis [facility] [address] [place] [address] 08/14/2023 Quinton Campos Plan Of Treatment No Information Progress Notes * HERNANDEZJAZMINE HEREDIACARMENHDOB:1960 (63 yo M)Acc No.[id number]:08/14/2023 Patient:?JUAN FRANCISCO HERNANDEZ :1960???Age:63 Y???Sex:Male Address:[address] [address] [place] [address] * true * Date:? Generated for Montanai robby/Jai/eTransmitting on:?07/10/2024 01:30 PM EDT
--- OUTSIDE RECORDS SUMMARY | 2024-07-10 13:30 | XMS_ITS | Clinical Summary ---
Author Organization [facility] Address [address] [place] [address] Phone Care Team Providers Care Welfare Case Worker Name Role Phone Quinton Callahan MD Primary Care Provider +1- [phone] Allergies No known active allergies Medications oxyCODONE-aceta minophen (PERCOCET) 5-325 mg per tablet Take 1 [...] Ischemia of right lower extremity 11/27/2023 Immunizations Immunization Administration Dates Next Due Influenza High-Dose Trivalent [...] this topic Medical Devices Implanted Type Area Rental Salesperson Device Identifier Shelf Expiration Date Model / Serial / Lot Graft Vascular 6.0mmx60 70cm Propaten Heparin Carmeda Bioactive Surface Thin Wall Removable Ring Stretch - [id number] Implanted:Qty: 1 on 12/02/2023 by Percy Segundo MD at [facility] STANDARD Right: Vein [employer] [id number] 08/13/2026 [id number] / [id number] / Metal Clip Celd Left Groin 10/2023 Stent Right Femoral Artery Patch Pericardium 2cm 9cm Decellularized Bovine [employer] - [id number] Implanted:Qty: 1 on 12/02/2023 by Percy Segundo MD at [facility] Right: Vein [employer] [id number] 03/24/2025 [id number] / / [id number] Procedures Procedure Name Priority Date/Time Associated Diagnosis Comments BASIC METABOLIC PANEL Routine 02/18/2024 8:01 AM EST Aftercare for amputation stump LIPID PANEL Routine 11/28/2023 1:21 AM EDT from Last 3 Months or Most Recently Relevant to Health Maintenance Results * (ABNORMAL) Basic metabolic panel (02/18/2024 8:01 AM EST) SODIUM 137 133 - 146 mmol/L [facility] CHLORIDE 102 96 - 108 mmol/L [facility] POTASSIUM 4.4 3.3 - 5.1 mmol/L [facility] CO2 25 21 - 35 mmol/L [facility] BUN 13 6 - 19 mg/dL [facility] CREATININE 0.70 0.5 - 1.5 mg/dL [facility] GLUCOSE 101(H) 70 - 99 mg/dL [facility] CALCIUM 9.7 8.4 - 10.3 mg/dL [facility] EGFR 102 >59 mL/min/1.7 3m2 [facility] Comment:Estimated glomerular filtration rate calculated using the CKD-EPI refit equation. ANION GAP 14 10 - 20 mmol/L [facility] Blood 02/18/2024 8:01 AM EST 02/18/2024 10:00 AM EST us Garrett Fletcher MD LAB BLOOD ORDERABLES Final Resul t [facility] [address] [place] [address] * Lipid panel (11/28/2023 1:21 AM EDT) CHOLESTEROL 125 <200 mg/dL [facility] TRIGLYCERIDES 60 35 - 150 mg/dL [facility] HDL 60 40 - 80 mg/dL [facility] CALCULATED LDL 53 50 - 129 mg/dL [facility] VLDL 12 <31 mg/dL [facility] CARDIAC RISK RATIO 2.1 0.0 - 4.0 [facility] Blood 11/28/2023 1:21 AM EDT 11/28/2023 1:35 AM EDT us Ayla Owens PA-C LAB BLOOD ORDERABLES Clementina l Result [facility] [address] [place] [address] from Last 3 Months or Most Recently Relevant to Health Maintenance Insurance [employer] PPO MEDICARE REPLACEMENT MEDICARE PART A & B [employer] O MEDICARE REPLACEMENT MEDICARE PART A & B [employer] O MEDICARE REPLACEMENT MEDICARE PART A & B [employer] PPO MEDICARE REPLACEMENT MEDICARE PART A & B [employer] O MEDICARE REPLACEMENT MEDICARE PART A & B [employer] PPO MEDICARE REPLACEMENT MEDICARE PART A & B Advance Directives For more information, please contact: [phone] (9AM - 5PM Swati/[facility], Sunday-Sunday) * Full Code (Latest Code Status on File) Date Activated Date Inactivated Comments 11/27/2023 4:16 PM Question Answer Comments Code Status Confirmed With: Patient Care Teams Welfare Case Worker Relationship Specialty Start Date End Date Quinton Callahan MD [address] [place] [address] PCP - General Medical Oncology 11/23/23 Additional Source Comments The information contained in this document represents components of the legal health record. It is not the complete legal health record.[facility]
--- OUTSIDE RECORDS SUMMARY | 2024-07-10 13:30 | XMS_ITS | Encounter Summary ---
Author Organization [facility] Address [address] [place] [address] [place] [address] Phone Care Team Providers Care Monument Carver Name Role Phone Quinton Callahan MD Primary Care Provider +1- [phone] Encounter Details Date Type Department Care Team (Late st Contact Info) Description 12/02/2023 Procedure Pass [facility] Periop [address] [place] [address] Social History Tobacco Use Types Packs/Day Years [...] on filedocumented in this encounter Care Teams Monument Carver Relationship Specialty Start Date End Date Quinton Callahan MD [address] [place] [address] PCP - General Medical Oncology 11/23/23 documented as of this encounter Additional Source Comments The information contained in this document represents components of the legal health record. It is not the complete legal health record.[facility]
--- OUTSIDE RECORDS SUMMARY | 2024-07-10 13:31 | XMS_ITS ---
Author Organization Quinton Callahan III, MD Address [address] [place] [address] Care Team Providers Care Trimming Inspector Name Role Phone Quinton Callahan Primary Care Provider [phone] Allergies Allergen (clinical drug ingredient) Drug/Non Drug [...] tablet by mouth once daily Active Nystatin 646674 UNIT/GM 1 application Ex ternally Twice a [...] Provider Diagnosis Quinton Callahan III, MD [address] [place] [address] [place] [address] 06/12/2024 Quinton Callahan Peripheral arterial disease I73.9 [...] endoscopy and was referred back to his social security assessor, Dr. Quinton Campos. 06/12/2024 Chronic obstructive pulmonary [...] 1 tablet by mouth once daily Nystatin 340818 UNIT/GM 1 application Ex ternally Twice a day 12/21/2023 Metoprolol Succinate ER 25 MG 1 tablet Orally Once a day ibuprofen 1 tab Oral Tamsulosin HCl 0.4 MG Take 2 capsules by mouth once daily Next Appt Details Follow Up: 4 Weeks, Reason: OV Provider Name:Quinton Callahan, 09/09/2024 11:30:00 AM, [address] [place] [address] [address], [place], [address], Provider Name:Quinton Callahan, 10/15/2024 11:00:00 AM, [address] [place] [address] [address], [place], [address], Progress Notes * Ana ENCINAShDOB:1960 (64 yo M)Acc No.[id number]:06/12/2024 Patient:?Zan ENCINSA Provider:?Quinton Callahan MD :1960???Age:64 Y???Sex:Male Duc e:06/12/2024 Address:[address] [place], [place] [id number] Subjective: * Chief Complaints: * ???Right BKAPeripheral [...] that he was readmitted to [facility] with infection of the stump and [...] after dental work 1986upper endoscopy and colonoscopy, [facility], Dr. Quinton Campos 2009upper endoscopy, [facility], Dr. Quinton Campos, Palmer's esophagus 2014arteriogram right lower extremity 05/2019Right znmik-vtg-ovtc amputation 02-04-2024 * Hospitalization/Major Diagno stic Procedure:?Denies [...] healthy grandchildren. One of his siblings has Makekyc-Drgdn-Dfgwx disease. One of his children has had an appendectomy. A paternal grandfather of lung cancer and a paternal grandmother of pancreatic cancer. 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 He was born in [place], [place]. He came to [place] in 1984. He is with 6 children. He has 11 grandchildren. He is a of [employer]. He trained at [employer] and served in [employer]. * Medications:?TakingNystatin 591697 UNIT/GM Powder 1 application Externally Twice a [...] 10 GM Solution Reconstituted Intravenous Taking Nystatin 899041 UNIT/GM Powder 1 application Externally Twice a [...] endoscopy and was referred back to his social security assessor, Dr. Quinton Campos.???4.?Chronic obstructive pulmonary disease, unspecified [...] Plan: * Treatment: 2.?Others? Continue Nystatin Powder, 173136 UNIT/GM, 1 application, Externally, Twice a day;?Continue Atorvastatin Calcium Tablet, 10 MG, Take 1 tablet by mouth once daily;?Continue Tamsulosin HCl Capsule, 0.4 MG, Take 2 capsules by mouth once daily;?Continue Pantoprazole Sodium Tablet Delayed Release, 40 MG, Take 2 tablets by mouth once daily.?? * Procedure Codes:?81177 TRANS CARE MGMT 14 DAY DISCH * [...] Callahan MD Date:?05/27 Generated for Tristen bustamante/Jai/Allysonitting on:?07/10/2024 01:31 PM EDT History and Physical Notes * [...]
--- OUTSIDE RECORDS SUMMARY | 2024-07-10 13:31 | XMS_ITS ---
Author Organization [facility] Address [address] [place] [address] Care Team Providers Care Housing And Residence Life Director Name Role Phone London MORIN, Quinton Primary Care Provider Unavailab Quinton Alvarez [phone] REASON FOR VISIT Patient presents today for EGD, NUGENT'S ESOPHAGUS Encounters Encounter Location Date Provider Diagnosis [facility] [address] [place] [address] 08/14/2023 Quinton Campos Plan Of Treatment No Information Progress Notes * SHAUNA HERNANDEZHDOB:1960 (64 yo M)Acc No.[id number]:08/14/2023 Progress Notes Patient:?JUAN FRANCISCO HERNANDEZ Provider:?Quinton Campos MD :1960???Age:63 Y???Sex:Male Duc e:08/14/2023 Address:[address] [place] [address] [facility] Pcp:Quinton Callahan MD Subjective: * Chief Complaints: [...] MD Date:? 024 Generated for Printi ng/Faxing/eTransmitting on:?07/10/2024 01:31 PM EDT
--- OUTSIDE RECORDS SUMMARY | 2024-07-10 13:31 | XMS_ITS | Patient Health Record ---
Author Organization Quinton Callahan III, MD Address [address] [place] [address] Care Team Providers Care Garde Manger Name Role Phone Quinton Callahan Primary Care Provider [phone] Allergies Allergen (clinical drug ingredient) Drug/Non Drug Allergy documented on EMR Reaction Allergy Type Onset Date Status No Known Drug Allergy Unknown Drug Allergy Active Results Component Value Reference Range Notes Routine Culture Reviewed date:09/30/2023 06:32:33 AM Interpretation: Performing Lab:[address] [address] Notes/Report: Routine Culture No growth after 2 [...] ff Reviewed date:07/24/2023 09:31:57 AM Interpretation: Performing Lab:[address] [address] Notes/Report: White Blood Count 7.7 4.8-10.8 X10*3/uL [...] Nitrogen Reviewed date:07/24/2023 09:31:57 AM Interpretation: Performing Lab:[facility], [address] [place] [address] Notes/Report: Blood Urea Nitrogen 22 9-16 mg/dL Creatinine Reviewed date:07/24/2023 09:31:57 AM Interpretation: Performing Lab:[facility], [address] [place] [address] Notes/Report: Creatinine 0.92 0.5-1.4 mg/dL Creatinine Clr Calc Pharmacy 87.8 eGFR (calculated from the MDRD study equation) and eCrCl (calculated from the Cockcroft-Gault equation) are based on different parameters and may not yield comparable results. If eCrCl result is absurd, please check patient's height/weight. Estimated Glomerular Filt Rate > 60 NOTE: For -Cuban individuals, multiply the result by 1.210. Chronic Kidney Disease: Estimated GFR < 60 mL/min/1.73m2 Severe Kidney Disease: Estimated GFR < 15 mL/min/1.73m2 Type and Screen Reviewed date:08/04/2023 05:32:19 AM Interpretation: Performing Lab:[facility], [address] [place] [address] Notes/Report: Spec expiration changed by BELLO on 08/03/23 Reason: PAT NURSING: Call Blood Bank (ext. [phone]) to band patient on admission. Type and Screen in effect until 2300 on 08/13/2023. Witnessed by HUSSEIS Blood Type OP Antibody Screen NEGATIVE XR chest 2V Reviewed date:08/28/2023 05:01:16 AM Interpretation: Performing Lab: Notes/Report: [address] [address] XRay Report Signed Patient: Zan Encinas MR#: [id number] : 1960 Acct:[id number] Age/Sex: 63 / M ADM Date: 08/07/23 Loc: MIAN Attending Dr: Aleksandra Archuleta COMPUTER HARDWARE DEVELOPER Ordering Physician: Aleksandra Archuleta NP Date of Service: 08/07/23 Procedure(s): XR chest 2V Accession Number(s): [id number] cc: Quinton Callahan MD; Aleksandra Archuleta NP [...] in OV> 08/20/23 0929 DD/ 1250 TD/TT: Motors And Generators Inspector: [address] [address] XRay Report Signed Patient: Zna Encinas MR#: [id number] : 1960 Acct:[id number] Age/Sex: 63 / M ADM Date: 08/07/23 Loc: HOSILVER[facility] Attending Dr: Apolonia Archuleta NP Ordering Physician: Aleksandra Archuleta NP Date of Service: 08/07/23 Procedure(s): XR tory st 2V Accession Number(s): [id number] cc: Quinton Callahan MD; Aleksandra Archuleta NP [...] for this patient with history of toba tobacco educator abuse. Dictated By: Yudy Simon MD Signed By: <Electronically signed by Yudy Simon MD in OV> 08/20/23 0929 DD/ 1250 TD/TT: Motors And Generators Inspector: JESUS gosia perf SPECT rest & str Reviewed date:08/11/2023 05:22:23 AM Interpretation: Performing Lab: Notes/Report: [address] [address] Nuclear Medicine Report Signed Patient: Zan Encinas MR#: [id number] : 1960 Acct:[id number] Age/Sex: 63 / M ADM Date: 08/09/23 Loc: HO.CARD Attending Dr: Khalif Ferrer MD Ordering Physician: Khalif Ferrer MD Date of Service: 08/09/23 Procedure(s): NM gosia perf SPECT rest str Accession Number(s): [id number] cc: Quinton Callahan MD; Khalif Ferrer MD [...] in OV> 08/10/23 1257 DD/ 1120 TD/TT: Motors And Generators Inspector: [place] [address] Nuclear Medicine Report Signed Patient: Zan Encinas MR#: [id number] : 1960 Acct:[id number] Age/Sex: 63 / M ADM Date: 08/09/23 Loc: [facility] Attending Dr: Khalif Ferrer MD Ordering Physician: Khalif Ferrer MD Date of Service: 08/09/23 Procedure(s): NM gosia perf SPECT rest str Accession Number(s): [id number] cc: Quinton Callahan MD; Khalif Ferrer MD Lexiscan Myocardial perfusion study Indication: Preoperative cardiovascular evaluation Technique: The patient was brou t in for a Lexiscan perfusion study on 08/10/2023 and was injected 0.4 mg of Lexiscan intravenously. Within a minute of this injection 30 mC i of sestamibi was given intravenously. Images were obtained using the S [employer] gamma camera interlaced with the gating device. [...] in OV> 08/10/23 1257 DD/ 1120 TD/TT: Motors And Generators Inspector: US venous duplex LE RT Reviewed date:08/11/2023 05:22:23 AM Interpretation: Performing Lab: Notes/Report: [address] [address] Ultrasound Report Signed Patient: Zan Encinas MR#: [id number] : 1960 Acct:[id number] Age/Sex: 63 / M ADM Date: 08/10/23 Loc: .US Attending Dr: Bimal Knott MD Ordering Physician: Bimal Knott MD Date of Service: 08/10/23 Procedure(s): US venous duplex LE RT Accession Number(s): [id number] cc: Quinton Callahan MD; Bimal Knott MD [...] by Verena Marinelli MD in OV> 08/10/23 5557 DD/ 1336 TD/TT: Motors And Generators Inspector: MARY [address] [address] Ultrasound Report Signed Patient: Zan Encinas MR#: [id number] : 1960 Acct:[id number] Age/Sex: 63 / M ADM Date: 08/10/23 Loc: . Attending Dr: Bimal Knott MD Ordering Physician: Bimal Knott MD Date of Service: 08/10/23 Procedure(s): US lazaro ous duplex LE RT Accession Number(s): [id number] cc: Quinton Callahan MD; Bimal Knott MD [...] in OV> 08/10/23 9197 DD/ 1336 TD/TT: Motors And Generators Inspector: MARY Complete Blood Count no Diff Reviewed date:08/16/2023 09:15:46 PM Interpretation: Performing Lab:[facility], [address] [place] [address] Notes/Report: White Blood Count 8.5 4.8-10.8 X10*3/uL [...] INR Reviewed date:08/16/2023 09:15:46 PM Interpretation: Performing Lab:[facility], [address] [place] [address] Notes/Report: Prothrombin Time 11.2 11.1-13.3 SEC INTERNATIONAL [...] Time Reviewed date:08/16/2023 09:15:46 PM Interpretation: Performing Lab:[facility], [address] [place] [address] Notes/Report: Partial Thromboplastin Time 26.7 26.0-36.8 SEC For information regarding the monitoring of direct thrombin inhibitors, please refer to Pharmacy. Basic Metabolic Panel Reviewed date:08/16/2023 09:15:46 PM Interpretation: Performing Lab:[facility], [address] [place] [address] Notes/Report: Sodium 140 135-145 mmol/L Potassium 4.1 [...] Glomerular Filt Rate > 60 NOTE: For -Cuban individuals, multiply the result by 1.210. Chronic Kidney Disease: Estimated GFR < 60 mL/min/1.73m2 Severe Kidney Disease: Estimated GFR < 15 mL/min/1.73m2 Glucose Random 103 60-115 mg/dL Calcium 9.4 8.4-10.2 mg/dL Complete Blood Count Auto Di ff Reviewed date:08/16/2023 09:15:46 PM Interpretation: Performing Lab:[facility], [address] [place] [address] Notes/Report: White Blood Count 10.6 4.8-10.8 X10*3/uL [...] Panel Reviewed date:08/16/2023 09:15:46 PM Interpretation: Performing Lab:[address] [address] Notes/Report: Sodium 140 135-145 mmol/L Potassium 3.6 [...] Glomerular Filt Rate > 60 NOTE: For -Cuban individuals, multiply the result by 1.210. Chronic Kidney Disease: Estimated GFR < 60 mL/min/1.73m2 Severe Kidney Disease: Estimated GFR < 15 mL/min/1.73m2 Glucose Random 113 60-115 mg/dL Calcium 8.5 8.4-10.2 mg/dL Phosphorus Reviewed date:08/16/2023 09:15:46 PM Interpretation: Performing Lab:[facility], [address] [place] [phone] Notes/Report: Phosphorus 2.4 2.7-4.5 mg/dL Magnesium Reviewed date:08/16/2023 09:15:46 PM Interpretation: Performing Lab:[facility], [address] [place] [address] Notes/Report: Magnesium 2.0 1.6-2.6 mg/dL Complete Blood Count Auto Di ff Reviewed date:08/16/2023 09:15:45 PM Interpretation: Performing Lab:[facility], [address] [place] [address] Notes/Report: White Blood Count 10.8 4.8-10.8 X10*3/uL [...] Panel Reviewed date:08/16/2023 09:15:45 PM Interpretation: Performing Lab:[facility], [address] [place] [address] Notes/Report: Sodium 137 135-145 mmol/L Potassium 3.6 [...] Glomerular Filt Rate > 60 NOTE: For -Cuban individuals, multiply the result by 1.210. Chronic Kidney Disease: Estimated GFR < 60 mL/min/1.73m2 Severe Kidney Disease: Estimated GFR < 15 mL/min/1.73m2 Glucose Random 117 60-115 mg/dL Calcium 9.0 8.4-10.2 mg/dL Phosphorus Reviewed date:08/16/2023 09:15:45 PM Interpretation: Performing Lab:[facility], [address] [place] [address] Notes/Report: Phosphorus 2.1 2.7-4.5 mg/dL Magnesium Reviewed date:08/16/2023 09:15:46 PM Interpretation: Performing Lab:[facility], [address] [place] [address] Notes/Report: Magnesium 2.0 1.6-2.6 mg/dL Gram stain Reviewed date:09/30/2023 06:32:33 AM Interpretation: Performing Lab:[facility], [address] [place] [address] Notes/Report: Gram stain Gram stain results: Gram stain No polys Gram stain 1+ epithelial cells Gram stain No organisms seen CT chest wo con Reviewed date:11/15/2023 07:43:48 PM Interpretation: Performing Lab: Notes/Report: [address] [address] [address] Scan Report Signed with Carlos Patient: Zan Encinas MR#: [id number] : 1960 Acct:[id number] Age/Sex: 63 / M ADM Date: 09/26/23 Loc: HO.CT Attending Dr: Aleksandra Archuleta NP Ordering Physician: Aleksandra Archuleta NP Date of Service: 09/26/23 Procedure(s): CT chest wo IV con Accession Number(s): [id number] cc: Quinton Callahan MD; Aleksandra Archuleta NP [...] called to the ordering clinician by a [place] Radiology Physician Geophysical Support Specialist. Electronically signed by: Stephanie Courtney MD 11/05/2023 06:52 PM EDT RP Dictated By: Stephanie Courtney MD Signed By: <Electronically signed by Stephanie Courtney MD in OV> 11/05/23 1852 DD/ 0733 TD/TT: 09/26/23 0758 Motors And Generators Inspector: [address] [address] [address] Scan Report Signed with Addenda Patient: Zan Encinas MR#: [id number] : 1960 Acct:[id number] Age/Sex: 63 / M ADM Date: 09/26/23 Loc: HO.CT Attending Dr: Apolonia Archuleta NP Ordering Physician: Aleksandra Archuleta NP Date of Service: 09/26/23 Procedure(s): CT tory st wo IV con Accession Number(s): [id number] cc: Quinton Callahan MD; Aleksandra Archuleta NP [...] called to the ordering clinician by a [place] Radiology Physician Geophysical Support Specialist. Electronically ivania d by: Stephanie Courtney MD 11/05/2023 06:52 PM EDT RP Dictated By: Stephanie Courtney MD Signed By: <Electronically signed by Stephanie Courtney MD in OV> 11/05/23 185 DD/ 2 TD/TT: 09/26/23757 Motors And Generators Inspector: Complete Blood Count Auto Di ff Reviewed date:10/02/2023 07:28:20 AM Interpretation: Performing Lab:[facility], [address] [place] [address] Notes/Report: White Blood Count 11.0 4.8-10.8 X10*3/uL [...] te Reviewed date:10/02/2023 07:28:20 AM Interpretation: Performing Lab:[facility], [address] [place] [address] Notes/Report: Erythrocyte Sedimentation Rate 2 0-15 MM/HR Patients with polycythemia and many hemoglobin abnormalities may have depressed sed rates whereas patients with anemia may have elevated sed rates. Prothrombin Time INR Reviewed date:10/02/2023 07:28:20 AM Interpretation: Performing Lab:[facility], [address] [place] [address] Notes/Report: Prothrombin Time 11.2 11.1-13.3 SEC INTERNATIONAL [...] Time Reviewed date:10/02/2023 07:28:20 AM Interpretation: Performing Lab:[facility], [address] [place] [phone] Notes/Report: Partial Thromboplastin Time 29.0 26.0-36.8 SEC For information regarding the monitoring of direct thrombin inhibitors, please refer to Pharmacy. Comprehensive Met. Panel Reviewed date:10/02/2023 07:28:20 AM Interpretation: Performing Lab:[facility], [address] [place] [address] Notes/Report: Sodium 141 135-145 mmol/L Potassium 3.9 [...] Glomerular Filt Rate > 60 NOTE: For -Cuban individuals, multiply the result by 1.210. Chronic [...] Protein Reviewed date:10/02/2023 07:28:20 AM Interpretation: Performing Lab:[facility], [address] [place] [address] Notes/Report: C Reactive Protein < 0.04 < or = 0.50 mg/dL US venous duplex LE RT Reviewed date:10/02/2023 07:28:20 AM Interpretation: Performing Lab: Notes/Report: [address] [address] Ultrasound Report Signed Patient: Zan Encinas MR#: [id number] : 1960 Acct:[id number] Age/Sex: 63 / M ADM Date: 10/01/23 Loc: .ED Attending Dr: Ordering Physician: Gt Cruz Date of Service: 10/01/23 Procedure(s): US venous duplex LE RT Accession Number(s): [id number] cc: Gt Cruz; Quinton Callahan MD EXAMINATION: [...] MD in OV> 10/01/231949 DD/ 43 TD/TT: Motors And Generators Inspector: [address] [address] Ultrasound Report Signed Patient: Zan Encinas MR#: [id number] : 1960 Acct:[id number] Age/Sex: 63 / M ADM Date: 10/01/23 Loc: .ED Attending Dr: Ordering Physician: Gt Cruz Date of Service: 10/01/23 Procedure(s): US lazaro ous duplex LE RT Accession Number(s): [id number] cc: Gt Cruz; Quinton Callahan MD EXAMINATION: [...] MD in OV> 10/01/231949 DD/ 43 TD/TT: Brand Sales Manager ist: JOE XR tibia fibula RT 2V Reviewed date:10/02/2023 07:28:20 AM Interpretation: Performing Lab: Notes/Report: [address] [address] XRay Report Signed Patient: Zan Encinas MR#: [id number] : 1960 Acct:[id number] Age/Sex: 63 / M ADM Date: 10/01/23 Loc: HO.ED Attending Dr: Ordering Physician: Gt Cruz Date of Service: 10/01/23 Procedure(s): XR tibia fibula RT 2V Accession Number(s): [id number] cc: Gt Cruz; Quinton Callahan MD EXAMINATION: [...] MD in OV> 10/01/231848 DD/ 58 TD/TT: Motors And Generators Inspector: JOE [address] [address] XRay Report Signed Patient: Zan Encinas MR#: [id number] : 1960 Acct:[id number] Age/Sex: 63 / M ADM Date: 10/01/23 Loc: HO.ED Attending Dr: Ordering Physician: Gt Cruz Date of Service: 10/01/23 Procedure(s): XR tib ia fibula RT 2V Accession Number(s): [id number] cc: Gt Cruz; Quinton Callahan MD EXAMINATION: XR foot RT 2V, XR tibia fibula RT 2V INDICATION: redness. osteo? COMPARISON: No perti nent prior studies are currently available for comparison. TECHNIQUE: 2 views t he right tibia and fibula and 3 views of the right foot FINDINGS: Vascular surgical clips are seen. Bones are normal anatomic alignment with no ac grand traverse fracture or dislocation. No bony destructive lesions. [...] MD in OV> 10/01/231848 DD/ 58 TD/TT: Brand Sales Manager ist: MO XR foot RT 2V Reviewed date:10/02/2023 07:28:20 AM Interpretation: Performing Lab: Notes/Report: [address] [address] XRay Report Signed Patient: Zan Encinas MR#: [id number] : 1960 Acct:[id number] Age/Sex: 63 / M ADM Date: 10/01/23 Loc: .ED Attending Dr: Ordering Physician: Gt Cruz Date of Service: 10/01/23 Procedure(s): XR foot RT 2V Accession Number(s): [id number] cc: Gt Cruz; Quinton Callahan MD EXAMINATION: [...] MD in OV> 10/01/231848 DD/ 58 TD/TT: Motors And Generators Inspector: [place] [address] XRay Report Signed Patient: Zan Encinas MR#: [id number] : 1960 Acct:[id number] Age/Sex: 63 / M ADM Date: 10/01/23 Loc: .ED Attending Dr: Ordering Physician: Gt Cruz Date of Service: 10/01/23 Procedure(s): XR chito t RT 2V Accession Number(s): [id number] cc: Gt Cruz; Quinton Callahan MD EXAMINATION: XR foot RT 2V, XR tibia fibula RT 2V INDICATION: redness. osteo? COMPARISON: No perti nent prior studies are currently available for comparison. TECHNIQUE: 2 views t he right tibia and fibula and 3 views of the right foot FINDINGS: Vascular surgical clips are seen. Bones are normal anatomic alignment with no ac grand traverse fracture or dislocation. No bony destructive lesions. [...] in OV> 10/01/23 1849 DD/ 58 TD/TT: Brand Sales Manager ist: MO Lactic Acid Reviewed date:10/02/2023 07:28:20 AM Interpretation: Performing Lab:[facility], [address] [place] [phone] Notes/Report: Lactic Acid 0.7 0.5-2.0 mmol/L Blood Culture (First) Reviewed date:10/14/2023 07:03:40 AM Interpretation: Performing Lab:[facility], [address] [place] [phone] Notes/Report: Blood Culture (First) No growth after 5 days. Blood Culture (Second) Reviewed date:10/14/2023 07:03:40 AM Interpretation: Performing Lab:[facility], [address] [place] [address] Notes/Report: Blood Culture (Second) No growth after 5 days. Complete Blood Count no Diff Reviewed date:10/04/2023 06:10:55 AM Interpretation: Performing Lab:[facility], [address] [place] [address] Notes/Report: White Blood Count 6.5 4.8-10.8 X10*3/uL [...] Panel Reviewed date:10/04/2023 06:10:55 AM Interpretation: Performing Lab:[facility], [address] [place] [address] Notes/Report: Sodium 140 135-145 mmol/L Potassium 4.0 [...] Glomerular Filt Rate > 60 NOTE: For -Cuban individuals, multiply the result by 1.210. Chronic [...] g Reviewed date:10/04/2023 06:10:55 AM Interpretation: Performing Lab:[facility], [address] [place] [address] Notes/Report: Glucose Fasting 100 60-99 mg/dL A fasting glucose from 100-125 mg/dl is considered impaired (pre-diabetes). Vancomycin Random Reviewed date:10/04/2023 06:10:55 AM Interpretation: Performing Lab:[facility], [address] [place] [address] Notes/Report: Vancomycin Random 9.5 15-20 mcg/mL US arterial duplex LE RT Reviewed date:11/15/2023 07:43:48 PM Interpretation: Performing Lab: Notes/Report: [address] [address] Ultrasound Report Signed Patient: Zan Encinas MR#: [id number] : 1960 Acct:[id number] Age/Sex: 63 / M ADM Date: 11/01/23 Loc: HO.US Attending Dr: Bimal Knott MD Ordering Physician: Bimal Knott MD Date of Service: 11/01/23 Procedure(s): US arterial duplex LE RT Accession Number(s): [id number] cc: Quinton Callahan MD; Bimal Knott MD [...] Popliteal: Occluded Tibial: Occluded Distal femoral to dopwl-udf-vobf bypass graft: Occluded There is a large complex multiseptated cystic collection seen in the proximal calf US/US arterial duplex LE RT IMPRESSION: 1. 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 2. There is a large multiseptated cystic collection in the proximal calf. Electronically signed by: Frankie Jimenez MD 11/01/2023 04:34 PM EDT Dictated By: Frankie Jimenez MD Signed By: <Electronically signed by Frankie Jimenez MD in OV> 11/01/23 1634 DD/ 1313 TD/TT: 11/01/23 1400 Motors And Generators Inspector: AMARA [address] [address] Ultrasound Report Signed Patient: Zan Encinas MR#: [id number] : 1960 Acct:[id number] Age/Sex: 63 / M ADM Date: 11/01/23 Loc: HO.US Attending Dr: Bimal Knott MD Ordering Physician: Bimal Knott MD Date of Service: 11/01/23 Procedure(s): US arterial duplex LE RT Accession Number(s): [id number] cc: Quinton Callahan MD; Bimal Knott MD [...] Popliteal: Occluded Tibial: Occluded Distal femoral to zpcyl-tbx-mvmb bypass graft: Occluded There is a large com plex multiseptated cystic collection seen in the proximal calf U S/US arterial duplex LE RT IMPRESSION: 1. There is occlusi on of the distal SFA and popliteal artery with a distal femoral to hvwxa-xnj-evod bypass graft which is also occluded. 2. There is a large multiseptated cystic collection in the proximal calf. Electronically ivania d by: Frankie Jimenez MD 11/01/2023 04:34 PM EDT RP Dictated By: Frankie Jimenez MD Signed By: <Electronically signed by Frankie Jimenez MD in OV> 11/01/23 1634 DD/ 1313 TD/TT: 11/01/23 1400 Motors And Generators Inspector: SS Creatinine GFR POC Reviewed date:11/15/2023 07:43:48 PM Interpretation: Performing Lab:[facility], [address] [place] [address] Notes/Report: [id number] 0.78 >60 0928 HO.THEBODA Creatinine POC 0.8 0.5-1.4 mg/dL GFR POC > 60 Chronic Kidney Disease: Estimated GFR < 60 mL/min/1.73m2 Severe Kidney Disease: Estimated GFR < 15 mL/min/1.73m2 CT angio abd aorta runoff Reviewed date:11/15/2023 07:43:48 PM Interpretation: Performing Lab: Notes/Report: [address] [address] [address] Scan Report Signed Patient: Zan nEcinas MR#: [id number] : 1960 Acct:[id number] Age/Sex: 63 / M ADM Date: 11/09/23 Loc: HO.CT Attending Dr: Bimal Knott MD Ordering Physician: Bimal Knott MD Date of Service: 11/09/23 Procedure(s): CT angio abd aorta runoff Accession Number(s): [id number] cc: Quinton Callahan MD; Bimal Knott MD EXAMINATION: CT ANGIOGRAPHY ABDOMEN, PELVIS AND LOWER EXTREMITY RUNOFF WITH CONTRAST CLINICAL INFORMATION: I73.9 - Peripheral vascular disease, unspecified COMPARISON: CTA runoff June 28, 2023 TECHNIQUE: Initial noncontrast localizing assessment rn images were obtained. Timing boluses at the [...] Femoris: Patent. Popliteal Artery: Popliteal stent occluded. [place] popliteal artery below stent occluded for a [...] artery stent. 2. Below the stent, the [place] popliteal is occluded for a short segment [...] 11/13/23 1517 DD/ 5 TD/TT: 11/09/23 1013 Motors And Generators Inspector: [place] [address] CT Scan Report Signed Patient: Zan Encinas MR#: [id number] : 1960 Acct:[id number] Age/Sex: 63 / M ADM Date: 11/09/23 Loc: HO.CT Attending Dr: Bimal Knott MD Ordering Physician: Bimal Knott MD Date of Service: 11/09/23 Procedure(s): CT ang io abd aorta runoff Accession Number(s): [id number] cc: Quinton Callahan MD; Bimal Knott MD EXAMINATION: CT ANGIOGRAPHY ABDOM EN, PELVIS AND LOWER EXTREMITY RUNOFF WITH CONTRAST CLINICAL INFORMATION: I73.9 - Peripheral vascular disease, unspecified COMPARISON: CTA runoff June 28, 2023 TECHNIQUE: Initial noncontrast localizing assessment rn images were obtained. Timing boluses at the [...] Femoris: Patent. Popliteal Artery: Popliteal stent occluded. [place] popliteal artery below stent occluded for a [...] artery stent. 2. Below the stent, the [place] popliteal is occluded for a short segment [...] 11/13/23 1517 DD/ 0926 TD/TT: 11/09/23 1013 Motors And Generators Inspector: Complete Blood Count Auto Di ff Reviewed date:11/21/2023 06:36:35 AM Interpretation: Performing Lab:[facility], [address] [place] [address] Notes/Report: White Blood Count 8.4 4.8-10.8 X10*3/uL [...] INR Reviewed date:11/21/2023 06:36:35 AM Interpretation: Performing Lab:[facility], [address] [place] [address] Notes/Report: Prothrombin Time 10.3 10.9-12.4 SEC INTERNATIONAL [...] Time Reviewed date:11/21/2023 06:36:35 AM Interpretation: Performing Lab:[facility], [address] [place] [address] Notes/Report: Partial Thromboplastin Time 31.9 26.0-36.8 SEC For information regarding the monitoring of direct thrombin inhibitors, please refer to Pharmacy. Basic Metabolic Panel Reviewed date:11/21/2023 06:36:35 AM Interpretation: Performing Lab:[address] [address] Notes/Report: Sodium 143 135-145 mmol/L Potassium 4.5 [...] Glomerular Filt Rate > 60 NOTE: For -Cuban individuals, multiply the result by 1.210. Chronic Kidney Disease: Estimated GFR < 60 mL/min/1.73m2 Severe Kidney Disease: Estimated GFR < 15 mL/min/1.73m2 Glucose Random 99 60-115 mg/dL Calcium 9.6 8.4-10.2 mg/dL Cancelled Chem Reviewed date:01/07/2024 01:28:15 PM Interpretation: Performing Lab:[facility], [address] [place] [address] Notes/Report: Cancelled Chem SEE NOTE NO SPECIMEN R ECEIVED FOR BUN AND CREAT US arterial duplex LE RT Reviewed date:01/24/2024 07:41:27 AM Interpretation: Performing Lab: Notes/Report: [facility] [address] [place] [address] Ultrasound Report Signed Patient: Zan Encinas MR#: [id number] : 1960 Acct:[id number] Age/Sex: 63 / M ADM Date: 01/01/24 Loc: .US Attending Dr: Bimal Knott MD Ordering Physician: Sera Saxena PA-C Date of Service: 01/01/24 Procedure(s): US arterial duplex LE RT Accession Number(s): [id number] cc: Quinton Callahan MD; Sera Saxena PA-C [...] by: Coleman Chaidez MD 01/23/2024 01:03 PM [facility] Dictated By: Coleman Chaidez MD Signed By: <Electronically signed by Coleman Chaidez MD in OV> 01/23/24 1303 DD/ 1430 TD/TT: 01/01/24 1517 [employer] Inspector: [place] [address] Ultrasound Report Signed Patient: Zan Encinas MR#: [id number] : 1960 Acct:[id number] Age/Sex: 63 / M ADM Date: 01/01/24 Loc: . Attending Dr: Bimal Knott MD Ordering Physician: Sera Saxena PA-C Date of Service: 01/01/24 Procedure(s): US arterial duplex LE RT Accession Number(s): [id number] cc: Quinton Callahan MD; Sera Saxena PA-C [...] by: Coleman Chaidez MD 01/23/2024 01:03 PM [facility] Dictated By: Coleman Chaidez MD Signed By: <Electronically signed by Coleman Chaidez MD in OV> 01/23/24 1303 DD/ 1430 TD/TT: 01/01/24 1517 [employer] Inspector: Complete Blood Count Auto Di ff Reviewed date:01/07/2024 01:28:15 PM Interpretation: Performing Lab:[facility], [address] [place] [address] Notes/Report: White Blood Count 8.2 4.8-10.8 X10*3/uL [...] Drip Reviewed date:01/08/2024 08:33:39 AM Interpretation: Performing Lab:[address] [address] Notes/Report: PTT Heparin Drip 33.9 53-77.9 SEC For information regarding the monitoring of heparin therapy, please refer to Pharmacy. Fibrinogen Reviewed date:01/08/2024 08:33:39 AM Interpretation: Performing Lab:[facility], [address] [place] [address] Notes/Report: Fibrinogen 465 259-690 MG/DL Blood Urea Nitrogen Reviewed date:01/07/2024 01:28:15 PM Interpretation: Performing Lab:[address] [address] Notes/Report: Blood Urea Nitrogen 16 9-16 mg/dL Creatinine Reviewed date:01/07/2024 01:28:15 PM Interpretation: Performing Lab:[address] [address] Notes/Report: Creatinine 0.81 0.5-1.4 mg/dL Creatinine Clr Calc Pharmacy 99.7 eGFR (calculated from the MDRD study equation) and eCrCl (calculated from the Cockcroft-Gault equation) are based on different parameters and may not yield comparable results. If eCrCl result is absurd, please check patient's height/weight. Estimated Glomerular Filt Rate > 60 NOTE: For -Cub[place] individuals, multiply the result by 1.210. Chronic Kidney Disease: Estimated GFR < 60 mL/min/1.73m2 Severe Kidney Disease: Estimated GFR < 15 mL/min/1.73m2 ACT LR Reviewed date:01/16/2024 08:51:12 AM Interpretation: Performing Lab:[address] [address] Notes/Report: out of range low [id number] HO.MARUSA 0906 HO.MULVEC Fibrinogen Reviewed date:01/08/2024 08:33:39 AM Interpretation: Performing Lab:[facility], [address] [place] [address] Notes/Report: Fibrinogen 445 259-690 MG/DL Complete Blood Count no Diff Reviewed date:01/10/2024 09:47:57 AM Interpretation: Performing Lab:[address] [address] Notes/Report: White Blood Count 28.7 4.8-10.8 X10*3/uL [...] ff Reviewed date:01/08/2024 08:33:39 AM Interpretation: Performing Lab:[facility], [address] [place] [address] Notes/Report: White Blood Count 10.1 4.8-10.8 X10*3/uL [...] gy Reviewed date:01/08/2024 02:05:08 PM Interpretation: Performing Lab:[facility], [address] [place] [address] Notes/Report: Hold Lav - Possible Hematology SEE NOTE Specimen will be held untested for 8 hours. Call Hematology if testing is desired. PTT Heparin Drip Reviewed date:01/08/2024 08:33:39 AM Interpretation: Performing Lab:[facility], [address] [place] [address] Notes/Report: PTT Heparin Drip 40.9 53-77.9 SEC For information regarding the monitoring of heparin therapy, please refer to Pharmacy. Fibrinogen Reviewed date:01/08/2024 08:33:39 AM Interpretation: Performing Lab:[facility], [address] [place] [address] Notes/Report: Fibrinogen 432 259-690 MG/DL Basic Metabolic Panel Reviewed date:01/08/2024 08:33:39 AM Interpretation: Performing Lab:[address] [address] Notes/Report: Sodium 138 135-145 mmol/L Potassium 3.8 [...] Phosphorus Reviewed date:01/08/2024 08:33:39 AM Interpretation: Performing Lab:[address] [address] Notes/Report: Phosphorus 2.9 2.7-4.5 mg/dL Magnesium Reviewed date:01/08/2024 08:33:39 AM Interpretation: Performing Lab:[facility], [address] [place] [address] Notes/Report: Magnesium 1.8 1.6-2.6 mg/dL Albumin Level Reviewed date:01/08/2024 08:33:39 AM Interpretation: Performing Lab:[facility], [address] [place] [address] Notes/Report: Albumin Level 3.2 3.5-5.0 g/dL ACT LR Reviewed date:01/11/2024 01:49:27 PM Interpretation: Performing Lab:[facility], [address] [place] [address] Notes/Report: 109 [id number] HOASHLEY 0846 HOYUNIOR ACT 109 79-173 Celite s Results are converted to a reference Celite ACT value in seconds. A reference interval is unavailable for ACT. Kathy Flores Reviewed date:01/08/2024 02:05:08 PM Interpretation: Performing Lab:[facility], [address] [place] [address] Notes/Report: Kathy Flores See Note Specimen held untested for 24 hours; Call to request Chemistry testing. SLIDE REVIEW Reviewed date:01/08/2024 02:05:08 PM Interpretation: Performing Lab:[facility], [address] [place] [address] Notes/Report: SLIDE REVIEW VERIFIED Type and Screen Reviewed date:01/11/2024 01:49:26 PM Interpretation: Performing Lab:[facility], [address] [place] [address] Notes/Report: Results at Issue Units as of [...] HCT called to and read back by CrowdTwistRaiza on 01/10/24 at 2000 by BORIS. Results [...] Cells Reviewed date:01/11/2024 01:49:26 PM Interpretation: Performing Lab:[facility], [address] [place] [address] Notes/Report: Red Blood Cells [id number] ON RC Red Blood Cells TRANSFUSED 01/09/24 0929 Red Blood Cells [id number] OP RC Red Blood Cells TRANSFUSED 01/09/24 1520 Red Blood Cells [id number] OP RC Red Blood Cells TRANSFUSED 01/10/24 0154 Red Blood Cells [id number] OP RC Red Blood Cells TRANSFUSED 01/10/24 1938 Red Blood Cells [id number] OP RC Red Blood Cells TRANSFUSED 01/10/242025 Red Blood Cells [id number] OP RC Red Blood Cells TRANSFUSED 01/10/24 2156 Red Blood Cells [id number] OP RC Red Blood Cells TRANSFUSED 01/10/242025 Red Blood Cells [id number] OP RC Red Blood Cells TRANSFUSED 01/11/24 0159 Red Blood Cells [id number] OP RC Red Blood Cells TRANSFUSED 01/11/24 0159 Arterial Blood Gases - POC Reviewed date:01/08/2024 02:05:08 PM Interpretation: Performing Lab:[facility], [address] [place] [address] Notes/Report: ABG pH 7.42 7.35-7.45 METER #: [id number] additional_comment: Cbgreavet ctrbpavlova ABG pCO2 34 32-45 mmHg METER #: [id number] additional_comment: Cbgreavet ctrbpavlova ABG pO2 95 83-108 mmHg METER #: [id number] additional_comment: Cbgreavet ctrbpavlova ABG Base Excess -1.2 METER #: [id number] additional_comment: Cbgreavet ctrbpavlova ABG HCO3 22 22-26 mmol/L METER #: [id number] additional_comment: Cbgreavet ctrbpavlova ABG O2 % Saturation 99.0 METER #: [id number] additional_comment: Cbgreavet ctrbpavlova Pheresis Platelets Reviewed date:01/11/2024 01:49:27 PM Interpretation: Performing Lab:[facility], [address] [place] [address] Notes/Report: Pheresis Platelets [id number] OP PHPLT Pheresis Platelets TRANSFUSED 01/11/24 0133 Hold Green Gel Reviewed date:01/08/2024 02:05:08 PM Interpretation: Performing Lab:[facility], [address] [place] [address] Notes/Report: Hold Green Gel See Note Specimen held untested for 24 hours; Call to request Chemistry testing. Fresh Frozen Plasma Reviewed date:01/11/2024 01:49:27 PM Interpretation: Performing Lab:[facility], [address] [place] [address] Notes/Report: Fresh Frozen Plasma [id number] AP FFP Fresh Frozen Plasma TRANSFUSED 01/11/24 0159 Fresh Frozen Plasma [id number] OP FFP Fresh Frozen Plasma TRANSFUSED 01/10/[address] abdomen pelvis w con Reviewed date:01/08/2024 02:05:08 PM Interpretation: Performing Lab: Notes/Report: [address] [address] [address] Scan Report Signed Patient: Zan Encinas MR#: [id number] : 1960 Acct:[id number] Age/Sex: 63 / M ADM Date: 01/07/24 Loc: .[facility] 255-[address]: Bimal Knott MD Ordering Physician: Sawyer Case MD Date of Service: 01/08/24 Procedure(s): CT abdomen pelvis w IV con Accession Number(s): [id number] cc: Quinton Callahan MD; Sawyer Case MD [...] right superficial femoral vein. There are likely [place] bypass femoral, bilaterally.. OSSEOUS STRUCTURES: Multilevel thoracolumbar [...] by: Theo Stern MD 01/08/2024 12:21 PM [facility] Dictated By: Theo Lagunas MD Signed By: <Electronically signed by Theo Steven MD in OV> 01/08/24 1221 DD/ 1105 TD/TT: 01/08/24 1125 [employer] Inspector: [address] [address] [address] Scan Report Signed Patient: Zan Encinas MR#: [id number] : 1960 Acct:[id number] Age/Sex: 63 / M ADM Date: 01/07/24 Loc: HO.ICU 255-[address]: Bimal Knott MD Ordering Physician: Sawyer Case MD Date of Service: 01/08/24 Procedure(s): CT abd omen pelvis w IV con Accession Number(s): [id number] cc: Quinton Callahan MD; Sawyer Case MD [...] right superficial femoral vein. There are likely [place] bypass femoral, bilaterally.. OSSEOUS STRUCTURES: Multilevel thoracolumbar [...] by: Theo Stern MD 01/08/2024 12:21 PM [facility] Dictated By: Theo Sawyer MD Signed By: <Electronically signed by Theo Steven MD in OV> 01/08/24 1221 DD/ 1105 TD/TT: 01/08/24 1125 [employer] Inspector: Fibrinogen Reviewed date:01/08/2024 08:33:39 AM Interpretation: Performing Lab:[facility], [address] [place] [address] Notes/Report: Fibrinogen 441 259-690 MG/DL Complete Blood Count Auto Di ff Reviewed date:01/08/2024 02:05:08 PM Interpretation: Performing Lab:[facility], [address] [place] [address] Notes/Report: White Blood Count 20.0 4.8-10.8 X10*3/uL [...] Drip Reviewed date:01/08/2024 02:05:08 PM Interpretation: Performing Lab:[facility], [address] [place] [address] Notes/Report: PTT Heparin Drip > 200.0 53-77.9 SEC Results of PTT-HD called to and read back by MARIELA on 01/08/24 at 1155 by FROY. For information regarding the monitoring of heparin therapy, please refer to Pharmacy. Basic Metabolic Panel Reviewed date:01/10/2024 09:47:57 AM Interpretation: Performing Lab:[facility], [address] [place] [address] Notes/Report: Sodium 134 135-145 mmol/L Potassium 4.9 [...] Phosphorus Reviewed date:01/10/2024 09:47:57 AM Interpretation: Performing Lab:[facility], [address] [place] [address] Notes/Report: Phosphorus 4.1 2.7-4.5 mg/dL Magnesium Reviewed date:01/10/2024 09:47:57 AM Interpretation: Performing Lab:[facility], [address] [place] [address] Notes/Report: Magnesium 1.9 1.6-2.6 mg/dL Complete Blood Count Auto Di ff Reviewed date:01/10/2024 09:47:57 AM Interpretation: Performing Lab:[facility], [address] [place] [address] Notes/Report: White Blood Count 21.8 4.8-10.8 X10*3/uL [...] REVIEW Reviewed date:01/10/2024 09:47:57 AM Interpretation: Performing Lab:[facility], [address] [place] [address] Notes/Report: SLIDE REVIEW VERIFIED ACT LR Reviewed date:01/11/2024 01:49:27 PM Interpretation: Performing Lab:[facility], [address] [place] [address] Notes/Report: 203 [id number] HO.GUILHERME 0855 mulvec ACT 203 79-173 Celite s Results are converted to a reference Celite ACT value in seconds. A reference interval is unavailable for ACT. Complete Blood Count Auto Di ff Reviewed date:01/10/2024 09:47:57 AM Interpretation: Performing Lab:[facility], [address] [place] [address] Notes/Report: White Blood Count 16.7 4.8-10.8 X10*3/uL [...] gy Reviewed date:01/10/2024 09:47:57 AM Interpretation: Performing Lab:[address] [address] Notes/Report: Hold Lav - Possible Hematology SEE NOTE Specimen will be held untested for 8 hours. Call Hematology if testing is desired. Prothrombin Time INR Reviewed date:01/10/2024 09:47:57 AM Interpretation: Performing Lab:[facility], [address] [place] [address] Notes/Report: Prothrombin Time 11.5 10.9-12.4 SEC INTERNATIONAL [...] Drip Reviewed date:01/10/2024 09:47:57 AM Interpretation: Performing Lab:[address] [address] Notes/Report: PTT Heparin Drip 28.1 53-77.9 SEC For information regarding the monitoring of heparin therapy, please refer to Pharmacy. Basic Metabolic Panel Reviewed date:01/10/2024 09:47:57 AM Interpretation: Performing Lab:[address] [address] Notes/Report: Sodium 136 135-145 mmol/L Potassium 4.5 [...] Phosphorus Reviewed date:01/10/2024 09:47:57 AM Interpretation: Performing Lab:[address] [address] Notes/Report: Phosphorus 4.0 2.7-4.5 mg/dL Magnesium Reviewed date:01/10/2024 09:47:57 AM Interpretation: Performing Lab:[facility], [address] [place] [address] Notes/Report: Magnesium 1.9 1.6-2.6 mg/dL Albumin Level Reviewed date:01/10/2024 09:47:57 AM Interpretation: Performing Lab:[facility], [address] [place] [address] Notes/Report: Albumin Level 3.2 3.5-5.0 g/dL SLIDE REVIEW Reviewed date:01/10/2024 09:47:57 AM Interpretation: Performing Lab:[facility], [address] [place] [address] Notes/Report: SLIDE REVIEW VERIFIED Complete Blood Count Auto Di ff Reviewed date:01/10/2024 09:47:57 AM Interpretation: Performing Lab:[facility], [address] [place] [address] Notes/Report: White Blood Count 10.8 4.8-10.8 X10*3/uL [...] Drip Reviewed date:01/10/2024 09:47:57 AM Interpretation: Performing Lab:[facility], [address] [place] [address] Notes/Report: PTT Heparin Drip 34.2 53-77.9 SEC For information regarding the monitoring of heparin therapy, please refer to Pharmacy. Complete Blood Count Auto Di ff Reviewed date:01/10/2024 09:47:57 AM Interpretation: Performing Lab:[facility], [address] [place] [address] Notes/Report: White Blood Count 8.4 4.8-10.8 X10*3/uL [...] Panel Reviewed date:01/10/2024 09:47:57 AM Interpretation: Performing Lab:[facility], [address] [place] [address] Notes/Report: Sodium 135 135-145 mmol/L Potassium 4.5 [...] Phosphorus Reviewed date:01/10/2024 09:47:57 AM Interpretation: Performing Lab:[facility], [address] [place] [address] Notes/Report: Phosphorus 3.0 2.7-4.5 mg/dL Magnesium Reviewed date:01/10/2024 09:47:57 AM Interpretation: Performing Lab:[facility], [address] [place] [address] Notes/Report: Magnesium 2.2 1.6-2.6 mg/dL PTT Heparin Drip Reviewed date:01/10/2024 09:47:57 AM Interpretation: Performing Lab:[facility], [address] [place] [address] Notes/Report: PTT Heparin Drip 55.2 53-77.9 SEC For information regarding the monitoring of heparin therapy, please refer to Pharmacy. Complete Blood Count Auto Di ff Reviewed date:01/10/2024 09:47:57 AM Interpretation: Performing Lab:[facility], [address] [place] [address] Notes/Report: White Blood Count 9.2 4.8-10.8 X10*3/uL [...] Hematocrit Reviewed date:01/11/2024 01:49:27 PM Interpretation: Performing Lab:[facility], [address] [place] [address] Notes/Report: Hemoglobin 3.3 14.0-18.0 g/dl Results of HGB called to and read back by JONAS on 01/10/24 at 1959 by BORIS. Hematocrit 9.9 42.0-52.0 % Results of HCT called to and read back by JONAS on 01/10/24 at 2001 by BORIS. Pathologist Review - CBC Reviewed date:01/11/2024 01:49:26 PM Interpretation: Performing Lab:[facility], [address] [place] [address] Notes/Report: Pathologist Review - CBC SEE NOTE Normochromic normocytic anemia. - Javi Farias M.D. Pathology Prothrombin Time INR Reviewed date:01/10/2024 09:47:57 AM Interpretation: Performing Lab:[facility], [address] [place] [address] Notes/Report: Prothrombin Time 12.1 10.9-12.4 SEC INTERNATIONAL [...] Drip Reviewed date:01/10/2024 09:47:57 AM Interpretation: Performing Lab:[facility], [address] [place] [address] Notes/Report: PTT Heparin Drip 44.5 53-77.9 SEC For information regarding the monitoring of heparin therapy, please refer to Pharmacy. Comprehensive Met. Panel Reviewed date:01/11/2024 01:49:27 PM Interpretation: Performing Lab:[facility], [address] [place] [address] Notes/Report: Sodium 135 135-145 mmol/L Potassium 4.9 [...] Panel Reviewed date:01/10/2024 09:47:57 AM Interpretation: Performing Lab:[facility], [address] [place] [address] Notes/Report: Sodium 136 135-145 mmol/L Potassium 4.1 [...] Acid Reviewed date:01/11/2024 01:49:27 PM Interpretation: Performing Lab:[facility], [address] [place] [address] Notes/Report: Lactic Acid 7.8 0.5-2.0 mmol/L Critical value for test(s): LACTA Results called to and read back by:VIKRAM Person calling: TANG Date:01-10-2024 Time:2121 Phosphorus Reviewed date:01/10/2024 09:47:57 AM Interpretation: Performing Lab:[facility], [address] [place] [address] Notes/Report: Phosphorus 2.8 2.7-4.5 mg/dL Magnesium Reviewed date:01/10/2024 09:47:57 AM Interpretation: Performing Lab:[facility], [address] [place] [address] Notes/Report: Magnesium 2.0 1.6-2.6 mg/dL Albumin Level Reviewed date:01/10/2024 09:47:57 AM Interpretation: Performing Lab:[facility], [address] [place] [address] Notes/Report: Albumin Level 3.5 3.5-5.0 g/dL Lactic Acid-LAB USE ONLY Reviewed date:01/11/2024 01:49:27 PM Interpretation: Performing Lab:[facility], [address] [place] [address] Notes/Report: Lactic Acid-LAB USE ONLY 1.9 0.5-2.0 mmol/L Venous Blood Gases - POC Reviewed date:01/11/2024 01:49:27 PM Interpretation: Performing Lab:[facility], [address] [place] [address] Notes/Report: VBG pH 7.42 7.32-7.43 METER #: [id number] VBG pCO2 25 METER #: [id number] 0250C VBG pO2 76 METER #: [id number] 0250C VBG Base Excess -6.7 METER #: [id number] VBG HCO3 16 22-26 mmol/L METER #: [id number] 0250C VBG O2 % Saturation TNP Hold Green Gel Reviewed date:01/11/2024 01:49:27 PM Interpretation: Performing Lab:[facility], [address] [place] [address] Notes/Report: Hold Green Gel See Note Specimen held untested for 24 hours; Call to request Chemistry testing. CT abdomen pelvis w con Reviewed date:01/11/2024 01:49:27 PM Interpretation: Performing Lab: Notes/Report: [address] [place] [address] CT Scan Report Signed Patient: Zan Encinas MR#: [id number] : 1960 Acct:[id number] Age/Sex: 63 / M ADM Date: 01/07/24 Loc: [facility] 255-[address]: Bimal Knott MD Ordering Physician: Som Vela NP Date of Service: 01/10/24 Procedure(s): CT abdomen pelvis w IV con Accession Number(s): [id number] cc: Quinton Callahan MD; Som Vela NP [...] by: Jarret Ferrara MD 01/10/2024 10:00 PM [facility] Dictated By: Jarret Ferrara MD Signed By: <Electronically signed by Jarret Ferrara MD in OV> 01/10/240 DD/ 21 TD/TT: 01/10/242021 [employer] Inspector: [place] [address] CT Scan Report Signed Patient: Zan Encinas MR#: [id number] : 1960 Acct:[id number] Age/Sex: 63 / M ADM Date: 01/07/24 Loc: .ICU 255-[address]: Bimal Knott MD Ordering Physician: Som Vela NP Date of Service: 01/10/24 Procedure(s): CT abd omen pelvis w IV con Accession Number(s): [id number] cc: Quinton Callahan MD; Som Vela NP [...] by: Jarret Ferrara MD 01/10/2024 10:00 PM [facility] Workstation: [id number] Dictated By: Jarret Ferrara MD Signed By: <Electronically signed by Jarret Ferrara MD in OV> 01/10/242199 DD/ 21 TD/TT: 01/10/242021 [employer] Inspector: PTT Heparin Drip Reviewed date:01/11/2024 01:49:27 PM Interpretation: Performing Lab:[facility], [address] [place] [address] Notes/Report: PTT Heparin Drip 80.2 53-77.9 SEC For information regarding the monitoring of heparin therapy, please refer to Pharmacy. PTT Heparin Drip Reviewed date:01/11/2024 01:49:27 PM Interpretation: Performing Lab:[facility], [address] [place] [address] Notes/Report: PTT Heparin Drip 66.0 53-77.9 SEC For information regarding the monitoring of heparin therapy, please refer to Pharmacy. Complete Blood Count Auto Di ff Reviewed date:01/11/2024 01:49:26 PM Interpretation: Performing Lab:[facility], [address] [place] [address] Notes/Report: White Blood Count 17.6 4.8-10.8 X10*3/uL [...] Diff Reviewed date:01/12/2024 07:43:31 AM Interpretation: Performing Lab:[facility], [address] [place] [address] Notes/Report: White Blood Count 12.3 4.8-10.8 X10*3/uL [...] ff Reviewed date:01/11/2024 01:49:26 PM Interpretation: Performing Lab:[facility], [address] [place] [address] Notes/Report: White Blood Count 18.2 4.8-10.8 X10*3/uL [...] Panel Reviewed date:01/11/2024 01:49:26 PM Interpretation: Performing Lab:[address] [address] Notes/Report: Sodium 135 135-145 mmol/L Potassium 4.6 [...] Phosphorus Reviewed date:01/11/2024 01:49:26 PM Interpretation: Performing Lab:[facility], [address] [place] [address] Notes/Report: Phosphorus 4.3 2.7-4.5 mg/dL Magnesium Reviewed date:01/11/2024 01:49:26 PM Interpretation: Performing Lab:[facility], [address] [place] [address] Notes/Report: Magnesium 2.2 1.6-2.6 mg/dL Albumin Level Reviewed date:01/11/2024 01:49:26 PM Interpretation: Performing Lab:[facility], [address] [place] [address] Notes/Report: Albumin Level 3.6 3.5-5.0 g/dL SLIDE REVIEW Reviewed date:01/11/2024 01:49:26 PM Interpretation: Performing Lab:[facility], [address] [place] [address] Notes/Report: SLIDE REVIEW VERIFIED Venous Blood Gases - POC Reviewed date:01/11/2024 01:49:26 PM Interpretation: Performing Lab:[facility], [address] [place] [address] Notes/Report: VBG pH 7.49 7.32-7.43 METER #: [id number] additional_comment: Jeovany burgess ctrbb henriquezc VBG pCO2 35 METER #: [id number] additional_comment: Jeovany burgess laurenbb henriquezc VBG pO2 57 METER #: [id number] additional_comment: Jeovany burgess ctrbb henriquezc VBG Base Excess 4.0 METER #: [id number] additional_comment: Jeovany burgess ctrbb henriquezc VBG HCO3 27 22-26 mmol/L METER #: [id number] additional_comment: Jeovany burgess ctrbb henriquezc VBG O2 % Saturation 92.0 METER #: [id number] additional_comment: Jeovany burgess ctrbb henriquegiovannic Venous Blood Gases - POC Reviewed date:01/11/2024 01:49:26 PM Interpretation: Performing Lab:[facility], [address] [place] [address] Notes/Report: VBG pH 7.42 7.32-7.43 METER #: [id number] additional_comment: Jeovany cazares ctrbb henriquezc VBG pCO2 42 METER #: [id number] additional_comment: Jeovany saucedo VBG pO2 35 METER #: [id number] additional_comment: Jeovany saucedo VBG Base Excess 3.7 METER #: [id number] additional_comment: Jeovany saucedo VBG HCO3 28 22-26 mmol/L METER #: [id number] additional_comment: Jeovany saucedo VBG O2 % Saturation 62.0 METER #: [id number] additional_comment: Jeovany velac Complete Blood Count Auto Di ff Reviewed date:01/11/2024 01:49:26 PM Interpretation: Performing Lab:[facility], [address] [place] [id number] Notes/Report: White Blood Count 14.9 4.8-10.8 X10*3/uL [...] ff Reviewed date:01/11/2024 08:19:34 PM Interpretation: Performing Lab:[facility], [address] [place] [id number] Notes/Report: White Blood Count 14.3 4.8-10.8 X10*3/uL [...] REVIEW Reviewed date:01/11/2024 08:19:34 PM Interpretation: Performing Lab:[facility], [address] [place] [address] Notes/Report: SLIDE REVIEW VERIFIED Basic Metabolic Panel Reviewed date:01/12/2024 07:43:31 AM Interpretation: Performing Lab:[facility], [address] [place] [address] Notes/Report: Sodium 133 135-145 mmol/L Potassium 4.0 [...] Phosphorus Reviewed date:01/12/2024 07:43:31 AM Interpretation: Performing Lab:[facility], [address] [place] [address] Notes/Report: Phosphorus 2.7 2.7-4.5 mg/dL Magnesium Reviewed date:01/12/2024 07:43:31 AM Interpretation: Performing Lab:[facility], [address] [place] [address] Notes/Report: Magnesium 2.4 1.6-2.6 mg/dL Complete Blood Count no Diff Reviewed date:01/13/2024 07:58:52 PM Interpretation: Performing Lab:[facility], [address] [place] [address] Notes/Report: White Blood Count 11.9 4.8-10.8 X10*3/uL [...] ff Reviewed date:01/12/2024 07:43:31 AM Interpretation: Performing Lab:[facility], [address] [place] [address] Notes/Report: White Blood Count 11.0 4.8-10.8 X10*3/uL [...] Panel Reviewed date:01/12/2024 07:43:31 AM Interpretation: Performing Lab:[address] [address] Notes/Report: Sodium 139 135-145 mmol/L Potassium 3.9 [...] Phosphorus Reviewed date:01/12/2024 07:43:31 AM Interpretation: Performing Lab:[address] [address] Notes/Report: Phosphorus 2.8 2.7-4.5 mg/dL Magnesium Reviewed date:01/12/2024 07:43:31 AM Interpretation: Performing Lab:[address] [address] Notes/Report: Magnesium 2.3 1.6-2.6 mg/dL SLIDE REVIEW Reviewed date:01/12/2024 07:43:31 AM Interpretation: Performing Lab:[facility], [address] [place] [address] Notes/Report: SLIDE REVIEW VERIFIED Venous Blood Gases - POC Reviewed date:01/12/2024 07:43:31 AM Interpretation: Performing Lab:[facility], [address] [place] [address] Notes/Report: VBG pH 7.41 7.32-7.43 METER #: [id number] additional_comment: Jeovany stevenson henric VBG pCO2 47 METER #: [id number] additional_comment: Jeovany aguilarbb henric VBG pO2 34 METER #: [id number] additional_comment: Jeovany aguilarbb henric VBG Base Excess 5.9 METER #: [id number] additional_comment: Jeovany aguilarbb henric VBG HCO3 31 22-26 mmol/L METER #: [id number] additional_comment: Jeovany aguilarbb henric VBG O2 % Saturation 56.0 METER #: [id number] additional_comment: Jeovany aguilarbb henric Complete Blood Count Auto Di ff Reviewed date:01/12/2024 07:43:31 AM Interpretation: Performing Lab:[facility], [address] [place] [address] Notes/Report: White Blood Count 10.7 4.8-10.8 X10*3/uL [...] ff Reviewed date:01/13/2024 07:58:52 PM Interpretation: Performing Lab:[facility], [address] [place] [address] Notes/Report: White Blood Count 11.2 4.8-10.8 X10*3/uL [...] Diff Reviewed date:01/13/2024 07:58:52 PM Interpretation: Performing Lab:[address] [address] Notes/Report: White Blood Count 12.6 4.8-10.8 X10*3/uL [...] ff Reviewed date:01/13/2024 07:58:52 PM Interpretation: Performing Lab:[address] [address] Notes/Report: White Blood Count 11.1 4.8-10.8 X10*3/uL [...] Panel Reviewed date:01/13/2024 07:58:52 PM Interpretation: Performing Lab:[facility], [address] [place] [address] Notes/Report: Sodium 137 135-145 mmol/L Potassium 3.8 [...] Phosphorus Reviewed date:01/13/2024 07:58:52 PM Interpretation: Performing Lab:[facility], [address] [place] [address] Notes/Report: Phosphorus 3.0 2.7-4.5 mg/dL Magnesium Reviewed date:01/13/2024 07:58:52 PM Interpretation: Performing Lab:[facility], [address] [place] [address] Notes/Report: Magnesium 2.3 1.6-2.6 mg/dL Albumin Level Reviewed date:01/13/2024 07:58:52 PM Interpretation: Performing Lab:[facility], [address] [place] [address] Notes/Report: Albumin Level 3.5 3.5-5.0 g/dL SLIDE REVIEW Reviewed date:01/13/2024 07:58:52 PM Interpretation: Performing Lab:[facility], [address] [place] [address] Notes/Report: SLIDE REVIEW VERIFIED Venous Blood Gases - POC Reviewed date:01/13/2024 07:58:52 PM Interpretation: Performing Lab:[facility], [address] [place] [address] Notes/Report: VBG pH 7.46 7.32-7.43 METER #: [id number] additional_comment: Jeovany martinez laurenbb henric VBG pCO2 37 METER #: [id number] additional_comment: Jeovany janayprakashraiza ctrbb henric VBG pO2 55 METER #: [id number] additional_comment: Jeovany martinez ctrbb henric VBG Base Excess 3.2 METER #: [id number] additional_comment: Jeovany schwartz VBG HCO3 27 22-26 mmol/L METER #: [id number] additional_comment: Jeovany schwartz VBG O2 % Saturation 87.0 METER #: [id number] additional_comment: Jeovany schwartz Complete Blood Count Auto Di ff Reviewed date:01/13/2024 07:58:52 PM Interpretation: Performing Lab:[facility], [address] [place] [address] Notes/Report: White Blood Count 12.6 4.8-10.8 X10*3/uL [...] ff Reviewed date:01/15/2024 06:02:02 AM Interpretation: Performing Lab:[facility], [address] [place] [address] Notes/Report: White Blood Count 13.1 4.8-10.8 X10*3/uL [...] ff Reviewed date:01/15/2024 06:02:02 AM Interpretation: Performing Lab:[facility], [address] [place] [address] Notes/Report: White Blood Count 12.1 4.8-10.8 X10*3/uL [...] Hematocrit Reviewed date:01/15/2024 06:02:02 AM Interpretation: Performing Lab:[facility], [address] [place] [address] Notes/Report: Hemoglobin 7.9 14.0-18.0 g/dl Hematocrit 23.5 42.0-52.0 % Basic Metabolic Panel Reviewed date:01/15/2024 06:02:02 AM Interpretation: Performing Lab:[facility], [address] [place] [address] Notes/Report: Sodium 136 135-145 mmol/L Potassium 3.8 [...] Phosphorus Reviewed date:01/15/2024 06:02:02 AM Interpretation: Performing Lab:[facility], [address] [place] [address] Notes/Report: Phosphorus 2.8 2.7-4.5 mg/dL Magnesium Reviewed date:01/15/2024 06:02:02 AM Interpretation: Performing Lab:[facility], [address] [place] [address] Notes/Report: Magnesium 2.2 1.6-2.6 mg/dL Albumin Level Reviewed date:01/15/2024 06:02:02 AM Interpretation: Performing Lab:[facility], [address] [place] [address] Notes/Report: Albumin Level 3.4 3.5-5.0 g/dL SLIDE REVIEW Reviewed date:01/15/2024 06:02:02 AM Interpretation: Performing Lab:[facility], [address] [place] [address] Notes/Report: SLIDE REVIEW VERIFIED Complete Blood Count no Diff Reviewed date:01/16/2024 08:51:12 AM Interpretation: Performing Lab:[facility], [address] [place] [address] Notes/Report: White Blood Count 12.7 4.8-10.8 X10*3/uL [...] Diff Reviewed date:01/16/2024 08:51:12 AM Interpretation: Performing Lab:[address] [address] Notes/Report: White Blood Count 9.9 4.8-10.8 X10*3/uL [...] Panel Reviewed date:01/17/2024 05:05:01 AM Interpretation: Performing Lab:[address] [address] Notes/Report: Sodium 135 135-145 mmol/L Potassium 4.2 [...] Magnesium Reviewed date:01/17/2024 05:05:01 AM Interpretation: Performing Lab:[facility], [address] [place] [address] Notes/Report: Magnesium 2.3 1.6-2.6 mg/dL Complete Blood Count Auto Di ff Reviewed date:01/18/2024 08:33:04 PM Interpretation: Performing Lab:[facility], [address] [place] [address] Notes/Report: White Blood Count 12.0 4.8-10.8 X10*3/uL [...] te Reviewed date:01/18/2024 08:33:04 PM Interpretation: Performing Lab:[address] [address] Notes/Report: Erythrocyte Sedimentation Rate 92 0-15 MM/HR Patients with polycythemia and many hemoglobin abnormalities may have depressed sed rates whereas patients with anemia may have elevated sed rates. Prothrombin Time INR Reviewed date:01/18/2024 08:33:04 PM Interpretation: Performing Lab:[address] [address] Notes/Report: Prothrombin Time 13.4 10.9-12.4 SEC INTERNATIONAL [...] Panel Reviewed date:01/18/2024 08:33:04 PM Interpretation: Performing Lab:[address] [address] Notes/Report: Sodium 134 135-145 mmol/L Potassium 4.2 [...] Acid Reviewed date:01/18/2024 08:33:04 PM Interpretation: Performing Lab:[facility], [address] [place] [address] Notes/Report: Lactic Acid 1.3 0.5-2.0 mmol/L C Reactive Protein Reviewed date:01/18/2024 08:33:04 PM Interpretation: Performing Lab:[facility], [address] [place] [address] Notes/Report: C Reactive Protein 14.10 < or = 0.50 mg/dL Lipase Reviewed date:01/18/2024 08:33:04 PM Interpretation: Performing Lab:[facility], [address] [place] [address] Notes/Report: Lipase 24 8-78 U/L SLIDE REVIEW Reviewed date:01/18/2024 08:33:04 PM Interpretation: Performing Lab:[address] [address] Notes/Report: SLIDE REVIEW VERIFIED Blood Culture (First) Reviewed date:01/24/2024 07:41:27 AM Interpretation: Performing Lab:[facility], [address] [place] [address] Notes/Report: Blood Culture (First) No growth after 5 days. Blood Culture (Second) Reviewed date:01/24/2024 07:41:27 AM Interpretation: Performing Lab:[facility], [address] [place] [address] Notes/Report: Blood Culture (Second) No growth after 5 days. US arterial duplex LE RT Reviewed date:01/21/2024 07:35:28 AM Interpretation: Performing Lab: Notes/Report: [facility] [address] [facility] [place] [address] Ultrasound Report Signed with Addenda Patient: Zan Encinas MR#: [id number] : 1960 Acct:[id number] Age/Sex: 63 / M ADM Date: 01/18/24 Loc: .ED Attending Dr: Ordering Physician: Yuriy Dunbar Date of Service: 01/18/24 Procedure(s): US arterial duplex LE RT Accession Number(s): [id number] cc: Quinton Callahan MD; Yuriy Dunbar ADDENDUM ADDENDUM #1 Findings were communicated by telephone with Dr. Gerard by Dr. Zarate at 2034 hours. Electronically signed by: Placido Zarate MD 01/18/2024 08:41 PM [facility] Addendum Dictated By: Yuriy Zarate [...] in OV> 01/18/242032 DD/ 150 TD/TT: 01/18/241505 [employer] Inspector: BLANCA [place] [address] Ultrasound Report Signed with Addenda Patient: Zan Encinas MR#: [id number] : 1960 Acct:[id number] Age/Sex: 63 / M ADM Date: 01/18/24 Loc: .ED Attending Dr: Ordering Physician: Yuriy Dunbar Date of Service: 01/18/24 Procedure(s): US arterial duplex LE RT Accession Number(s): [id number] cc: Quinton Callahan MD; Yuriy Dunbar ADDENDUM [...] OV> 01/18/242032 DD/ 150 TD/TT: 01/18/24 1506 [employer] Inspector: BLANCA XR foot RT min 3V Reviewed date:01/18/2024 08:33:04 PM Interpretation: Performing Lab: Notes/Report: [address] [address] XRay Report Signed Patient: Zan Encinas MR#: [id number] : 1960 Acct:[id number] Age/Sex: 63 / M ADM Date: 01/18/24 Loc: .ED Attending Dr: Ordering Physician: Yuriy Dunbar Date of Service: 01/18/24 Procedure(s): XR foot RT min 3V Accession Number(s): [id number] cc: Quinton Callahan MD; Yuriy Dunbar EXAMINATION: [...] 01/18/24 1619 DD/ 1516 TD/TT: 01/18/24 1534 [employer] Inspector: MICHELA [address] [address] XRay Report Signed Patient: Zan Encinas MR#: [id number] : 1960 Acct:[id number] Age/Sex: 63 / M ADM Date: 01/18/24 Loc: HO.ED Attending Dr: Ordering Physician: Yuriy Dunbar Date of Service: 01/18/24 Procedure(s): XR chito t RT min 3V Accession Number(s): [id number] cc: Quinton Callahan MD; Yuriy Dunbar EXAMINATION: [...] of osteomyelitis, MRI would be recommended. Electronically ivnaia d by: Kaushal Cohen MD 01/18/2024 04:19 PM [facility] Dictated By: Kaushal Cohen MD Signed By: <Electronically signed by Kaushal Cohen MD in OV> 01/18/24 1619 DD/ 1516 TD/TT: 01/18/24 1534 [employer] Inspector: MICHELA Complete Blood Count no Diff Reviewed date:02/04/2024 11:35:53 AM Interpretation: Performing Lab:[facility], [address] [place] [address] Notes/Report: White Blood Count 11.5 4.8-10.8 X10*3/uL [...] INR Reviewed date:02/04/2024 11:35:53 AM Interpretation: Performing Lab:[address] [address] Notes/Report: Prothrombin Time 13.0 10.9-12.4 SEC INTERNATIONAL [...] Time Reviewed date:02/04/2024 11:35:53 AM Interpretation: Performing Lab:[facility], [address] [place] [address] Notes/Report: Partial Thromboplastin Time 33.9 26.0-36.8 SEC For information regarding the monitoring of direct thrombin inhibitors, please refer to Pharmacy. Basic Metabolic Panel Reviewed date:02/04/2024 11:35:53 AM Interpretation: Performing Lab:[address] [address] Notes/Report: Sodium 138 135-145 mmol/L Potassium 4.4 [...] Pathology Reviewed date:02/08/2024 08:35:16 AM Interpretation: Performing Lab:[facility], [address] [place] [address] Notes/Report: ---- Name: Tnoey Encinas Age/Sex: 63/M : 1960 Unit#: [id number] Attend Dr: Bimal Knott MD Re02/04/24 Status : ADM IN Location: [facility] 364-1 Disch: ---- SPEC : [id number] RECD : 02/04/24-1214 STATUS: YUSUF MATHUR NUM: [id number] FRANTZ: 02/04/24-[address]: Bimal Knott MD [...] label ed ?right leg? is a right fwtgr-qwy-wdwv amputation specimen which measures 34.0 cm in [...] No other erosions or ulcers are identified. Shipping And Receiving Assistant sections are submitted labeled as follows: A1 [...] Toney Encinas Age/Sex: 63/M : 1960 Unit#: [id number] Attend Dr: Bimal Knott MD Re02/04/24 Status : ADM IN Location: [facility] 364-1 Disch: ---- SPEC : [id number] RECD : 02/04/24 STATUS: YUSUF KEVAN NUM: [id number] FRANTZ: 02/04/24 [facility] DR: Bimal Knott MD ENTERED: 02/04/24- 16 SP TYPE: Surgical OTHR DR: Quinton Callahan MD ORDERED: Gross Micro L5 Copies To: Quinton Callahan MD [address] [facility] [place] [id number] Bimal Knott MD [facility] Vascular Services [address] [facility] [address] [place] [address] ---- Signed (signature on file) Val Cris 02/06/24 1550 ---- END OF REPORT Type and Screen Reviewed date:02/04/2024 11:35:53 AM Interpretation: Performing Lab:[facility], [address] [place] [address] Notes/Report: Blood Type OP Antibody Screen NEGATIVE Complete Blood Count no Diff Reviewed date:02/08/2024 08:35:16 AM Interpretation: Performing Lab:[facility], [address] [place] [address] Notes/Report: White Blood Count 9.4 4.8-10.8 X10*3/uL [...] ff Reviewed date:02/08/2024 08:35:16 AM Interpretation: Performing Lab:[facility], [address] [place] [address] Notes/Report: White Blood Count 11.2 4.8-10.8 X10*3/uL [...] Panel Reviewed date:02/08/2024 08:35:16 AM Interpretation: Performing Lab:[facility], [address] [place] [address] Notes/Report: Sodium 137 135-145 mmol/L Potassium 3.9 [...] REVIEW Reviewed date:02/08/2024 08:35:16 AM Interpretation: Performing Lab:[facility], [address] [place] [address] Notes/Report: SLIDE REVIEW VERIFIED Complete Blood Count no Diff Reviewed date:02/08/2024 08:35:16 AM Interpretation: Performing Lab:[facility], [address] [place] [address] Notes/Report: White Blood Count 9.3 4.8-10.8 X10*3/uL [...] Panel Reviewed date:02/08/2024 08:35:16 AM Interpretation: Performing Lab:[address] [address] Notes/Report: Sodium 136 135-145 mmol/L Potassium 3.8 [...] Level Reviewed date:02/08/2024 08:35:16 AM Interpretation: Performing Lab:[facility], [address] [place] [address] Notes/Report: Albumin Level 2.7 3.5-5.0 g/dL Complete Blood Count no Diff Reviewed date:02/08/2024 08:35:16 AM Interpretation: Performing Lab:[facility], [address] [place] [address] Notes/Report: White Blood Count 9.0 4.8-10.8 X10*3/uL [...] Gel Reviewed date:02/08/2024 08:35:16 AM Interpretation: Performing Lab:[facility], [address] [place] [address] Notes/Report: Hold Green Gel See Note Specimen held untested for 24 hours; Call to request Chemistry testing. Complete Blood Count Auto Di ff Reviewed date:05/27/2024 08:42:02 AM Interpretation: Performing Lab:[facility], [address] [place] [address] Notes/Report: White Blood Count 10.9 4.8-10.8 X10*3/uL [...] te Reviewed date:05/27/2024 08:42:02 AM Interpretation: Performing Lab:[facility], [address] [place] [address] Notes/Report: Erythrocyte Sedimentation Rate 10 0-15 MM/HR Patients with polycythemia and many hemoglobin abnormalities may have depressed sed rates whereas patients with anemia may have elevated sed rates. Comprehensive Met. Panel Reviewed date:05/27/2024 08:42:02 AM Interpretation: Performing Lab:[facility], [address] [place] [address] Notes/Report: Sodium 138 135-145 mmol/L Potassium 4.3 [...] Acid Reviewed date:05/27/2024 08:42:02 AM Interpretation: Performing Lab:[address] [address] Notes/Report: Lactic Acid 1.4 0.5-2.0 mmol/L C Reactive Protein Reviewed date:05/27/2024 08:42:02 AM Interpretation: Performing Lab:[address] [address] Notes/Report: C Reactive Protein 1.01 < or = 0.50 mg/dL Blood Culture (First) Reviewed date:06/07/2024 04:51:50 AM Interpretation: Performing Lab:[address] [address] Notes/Report: Blood Culture (First) No growth after 5 days. Blood Culture (Second) Reviewed date:06/07/2024 04:51:50 AM Interpretation: Performing Lab:[address] [address] Notes/Report: Blood Culture (Second) No growth after 5 days. XR knee RT 4V Reviewed date:05/27/2024 08:42:02 AM Interpretation: Performing Lab: Notes/Report: [address] [address] XRay Report Signed Patient: Zan Encinas MR#: [id number] : 1960 Acct:[id number] Age/Sex: 64 / M ADM Date: 05/26/24 Loc: HO.ED Attending Dr: Ordering Physician: Gt Cruz Date of Service: 05/26/24 Procedure(s): XR knee RT 4V Accession Number(s): [id number] cc: Gt Cruz; Quinton Callahan MD EXAMINATION: XR KNEE, RIGHT CLINICAL INFORMATION: Right stump erythema/pus discharge COMPARISON: 10/01/2023. TECHNIQUE: Four views of the right knee. FINDINGS: There is mild generalized osteopenia. There has been a umetz-jub-uurp amputation. There are no permeative changes involving [...] 05/26/24 1532 DD/ 1452 TD/TT: 05/26/24 1510 [employer] Inspector: [address] [address] XRay Report Signed Patient: Zan Encinas MR#: [id number] : 1960 Acct:[id number] Age/Sex: 64 / M ADM Date: 05/26/24 Loc: HO.ED Attending Dr: Ordering Physician: Gt Cruz Date of Service: 05/26/24 Procedure(s): XR kne e RT 4V Accession Number(s): [id number] cc: Gt Cruz; Quinton Callahan MD EXAMINATION: XR KNEE, RIGHT CLINICAL INFORMATION: Right stump erythema /pus discharge COMPARISON: 10/01/2023. TECHNIQUE: Four views of the ri ght knee. FINDINGS: There is mild generalized osteopenia. There has been a hrgdl-lms-vswf amputation. There are no permeative changes involving [...] 05/26/24 1532 DD/ 1452 TD/TT: 05/26/24 1510 [employer] Inspector: Complete Blood Count Auto Di ff Reviewed date:05/27/2024 08:42:02 AM Interpretation: Performing Lab:[facility], [address] [place] [address] Notes/Report: White Blood Count 9.2 4.8-10.8 X10*3/uL [...] Panel Reviewed date:05/27/2024 08:42:02 AM Interpretation: Performing Lab:[facility], [address] [place] [address] Notes/Report: Sodium 140 135-145 mmol/L Potassium 3.8 [...] Creatinine Reviewed date:05/27/2024 08:42:02 AM Interpretation: Performing Lab:[facility], [address] [place] [address] Notes/Report: Creatinine 0.84 0.5-1.4 mg/dL Creatinine Clr [...] Random Reviewed date:05/28/2024 04:55:44 AM Interpretation: Performing Lab:[facility], [address] [place] [address] Notes/Report: Vancomycin Random 13.2 15-20 mcg/mL MR knee RT wo/w con Reviewed date:05/28/2024 04:55:44 AM Interpretation: Performing Lab: Notes/Report: [address] [address] Magnetic Resonance Report Signed Patient: Zan Encinas MR#: [id number] : 1960 Acct:[id number] Age/Sex: 64 / M ADM Date: 05/26/24 Loc: .S3 376-[address]: Luciano Mari MD Ordering Physician: Keith Menendez MD Date of Service: 05/27/24 Procedure(s): MR knee RT wo/w con Accession Number(s): [id number] cc: Quinton Callahan MD; Keith Menendez MD [...] 05/27/24 1626 DD/ 1527 TD/TT: 05/27/24 1549 [employer] Inspector: [address] [address] Magnetic Resonance Report Signed Patient: Zan Encinas MR#: [id number] : 1960 Acct:[id number] Age/Sex: 64 / M ADM Date: 05/26/24 Loc: [facility] 376-[address]: Alfredo Mari MD Ordering Physician: Keith Menendez MD Date of Service: 05/27/24 Procedure(s): kngenevieve e RT wo/w con Accession Number(s): [id number] cc: Quinton Callahan MD; Keith Menendez MD [...] 05/27/24 1626 DD/ 1527 TD/TT: 05/27/24 1549 [employer] Inspector: Creatinine Reviewed date:05/28/2024 02:19:09 PM Interpretation: Performing Lab:[facility], [address] [place] [address] Notes/Report: Creatinine 0.81 0.5-1.4 mg/dL Creatinine Clr [...] Random Reviewed date:05/30/2024 07:30:54 PM Interpretation: Performing Lab:[facility], [address] [place] [address] Notes/Report: Vancomycin Random 13.4 15-20 mcg/mL Hold Lav - Possible Hematolo gy Reviewed date:05/30/2024 07:30:54 PM Interpretation: Performing Lab:[address] [address] Notes/Report: Hold Lav - Possible Hematology SEE NOTE Specimen will be held untested for 8 hours. Call Hematology if testing is desired. Creatinine Reviewed date:05/30/2024 07:30:54 PM Interpretation: Performing Lab:[facility], [address] [place] [address] Notes/Report: Creatinine 0.79 0.5-1.4 mg/dL Creatinine Clr [...] mL/min/1.73m2 Complete Blood Count Auto Di ff Reviewed date:07/01/2024 10:06:14 AM Interpretation: Performing Lab:[facility], [address] [place] [address] Notes/Report: White Blood Count 8.9 4.8-10.8 X10*3/uL [...] NRBC Abs Auto 0.000 0.0-0.012 X10*3/uL Creatinine Reviewed date:07/01/2024 10:06:14 AM Interpretation: Performing Lab:[facility], [address] [place] [address] Notes/Report: Creatinine 1.10 0.5-1.4 mg/dL Estimated Glomerular Filt Rate > 60 Chronic Kidney Disease: Estimated GFR < 60 mL/min/1.73m2 Severe Kidney Disease: Estimated GFR < 15 mL/min/1.73m2 Vancomycin Trough Reviewed date:07/01/2024 10:06:14 AM Interpretation: Performing Lab:[facility], [address] [place] [address] Notes/Report: Vancomycin Trough 20.4 10.0-20.0 mcg/mL Reason For Referral No Information Medications Medication SIG (Take, Route, Frequency, Duration) Notes Start Date End Date Status Breo Ellipta 200-25 MCG/ACT INHALE 1 PUF F BY MOUTH ONCE DAILY Inhalation Active Albuterol Sulfate HFA 108 (90 Base) MCG/ACT INHALE 2 PUFFS BY MOUTH EVERY 4 TO 6 HOURS NEEDED FOR SHORTNESS OF BREATH OR WHEEZING Inhalation Active Pantoprazole Sodium 40 MG Take 2 tablets by mouth once daily Active Eliquis 5 MG 1 Tablet Orally twic e a day Active Gabapentin 400 MG 1 capsule Orally fou r times a day 10/31/2023 Active Vancomycin HCl 10 GM Intravenous Active Gabapentin 300 MG 1 capsule Orally fou r times a day 06/12/2024 Active Metoprolol Succinate ER 25 MG 1 tablet Orally Once a day Active Nystatin [id number] UNIT/GM 1 application Ex ternally Twice a day 12/21/2023 Active Atorvastatin Calcium 10 MG Take 1 tablet by mouth once daily Active Tamsulosin HCl 0.4 MG Take 2 capsules by mouth once daily Active Doxycycline Hyclate 100 MG 1 capsule Ora lly twice a day 07/10/2024 Active ibuprofen 1 tab Oral Active Tylenol 325 MG 1 tablet as needed O rally every 4 hrs Active ASA 1 tab Oral Active Social History Tobacco Use: Social History [...] Problem Status W/U Status Risk Notes Problem 911483583 Overweight (E66.3) Active confirmed His body mass index is 29. We discussed diet and nutrition. I recommended aggressive weight loss and sodium restriction. Problem 187752146 Mixed hyperlipidemia (E78.2) Active confirmed A comprehensive laboratory database with a fasting lipid profile will be obtained. He was continued on his currrent meddications. Problem 01007412 Chronic obstructive pulmonary disease, unspecified COPD type (J44.9) Active confirmed He has resumed smoking 5 cigarettes per day. He was counseled about this and made aware of the smoking cessation programs in the area. Problem 79938281 Tobacco dependence (F17.200) Active confirmed I have counseled him about smoking cessation and offered to refer him to smoking cessation programs in the community. He said he would consider this and try to cut down. Problem Left bundle branch block (I44.7) Active confirmed The metal and plastic heater's interpretation of the perfusion test was that the defect in the septum may be due to the bundle branch block. I will discuss this with cardiology. Problem 43082911 Hiatal hernia (K44.9) Active confirmed The symptoms of his esophageal reflux and hiatal hernia well controlled with current medications. No change in his regimen as needed. Problem 864290285 Peripheral arterial disease (I73.9) Active confirmed He is seeing the vascular surgeon eebrock 2 weeks. 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 The plan is to fit him for a prosthesis. He denies any ulcers or claudication in the left leg. Problem Hoarseness (74584767) Hoarseness (R49.0) Active confirmed He will be referred to ENT for indirect laryngoscopy. Problem 2554743 Umbilical hernia without obstruction and without gangrene (K42.9) Active confirmed This is asymptomatic and requires no treatment at this time. Problem 619119990 Benign prostatic hyperplasia with lower urinary tract symptoms (N40.1) Active confirmed The tamsulosin was continued today. He will notify me if his symptoms worsen. He has had no retention. He has symptoms of prostatism. Problem 306167231 Acute right-sided low back pain with right-sided sciatica (M54.41) Active confirmed His back pain continues and I have increased the gabapentin. Problem 752644993 Palmer's esophagus determined by endoscopy (K22.70) Active confirmed He is due for an endoscopy and was referred back to his gastroenterolog ist, Dr. Quinton Campos. Problem 94814295 Splenic vein thrombosis (I82.890) Active confirmed There have been no further signs of thromboembolism . Problem [id number] Carpal tunnel syndrome on both sides (G56.03) Active confirmed He has a history of carpal tunnel syndrome treated by Dr. Raphael. He is currently asymptomatic. Vital Signs Heart Rate 70 /min 07/10/2024 Temperature 98.6 degrees Fahrenheit 07/10/2024 Blood pressure diastolic 53 mm Hg 07/10/2024 Height 73 in 07/10/2024 Blood pressure systolic 108 mm Hg 07/10/2024 Weight 185 lbs 07/10/2024 BMI 24.41 kg/m2 07/10/2024 Encounters Encounter Location Date Provider Diagnosis Quinton Callahan III, MD [address] [place] [address] [place] [address] 07/10/2024 Quinton Callahan Peripheral arterial disease I73.9 ; Benign prostatic hyperplasia with lower urinary tract symptoms N40.1 ; Palmer's esophagus determined by endoscopy K22.70 ; Chronic obstructive pulmonary disease, unspecified COPD type J44.9 ; Splenic vein thrombosis I82.890 ; Hiatal hernia K44.9 ; Umbilical hernia without obstruction and without gangrene K42.9 and Tobacco dependence F17.200 Quinton Callahan III, MD [address] [place] [address] [place] [address] 07/24/2023 Quinton Callahan Peripheral arterial disease I73.9 ; Hiatal hernia K44.9 ; Splenic vein thrombosis I82.890 ; Palmer's esophagus determined by endoscopy K22.70 ; Benign prostatic hyperplasia with lower urinary tract symptoms N40.1 ; Tobacco dependence F17.200 ; Hoarseness R49.0 and Left bundle branch block I44.7 Quinton Callahan III, MD [address] [place] [address] [place] [address] 08/08/2023 Quinton Callahan Peripheral arterial disease I73.9 ; Benign prostatic hyperplasia with lower urinary tract symptoms N40.1 ; Palmer's esophagus determined by endoscopy K22.70 ; Chronic obstructive pulmonary disease, unspecified COPD type J44.9 ; Tobacco dependence F17.200 and Overweight E66.3 Quinton Callahan III, MD [address] [place] [address] [place] [address] 08/27/2023 Quinton Callahan Peripheral arterial disease I73.9 ; Benign prostatic hyperplasia with lower urinary tract symptoms N40.1 ; Palmer's esophagus determined by endoscopy K22.70 ; Chronic obstructive pulmonary disease, unspecified COPD type J44.9 ; Overweight E66.3 ; Tobacco dependence F17.200 and Mixed hyperlipidemia E78.2 Quinton Callahan III, MD [address] [place] [address] [place] [address] 09/19/2023 Quinton Callahan Peripheral arterial disease I73.9 ; Open wound T14.8XXA ; Benign prostatic hyperplasia with lower urinary tract symptoms N40.1 ; Palmer's esophagus determined by endoscopy K22.70 ; Chronic obstructive pulmonary disease, unspecified COPD type J44.9 ; Tobacco dependence F17.200 and Mixed hyperlipidemia E78.2 Quinton Callahan III, MD [address] [place] [address] [place] [address] 09/24/2023 Quinton Callahan Peripheral arterial disease I73.9 ; Edema of right lower extremity R60.0 ; Palmer's esophagus determined by endoscopy K22.70 ; Benign prostatic hyperplasia with lower urinary tract symptoms N40.1 ; Overweight E66.3 and Tobacco dependence F17.200 Quinton Callahan III, MD [address] [place] [address] [place] [address] 10/15/2023 Quinton Callahan Peripheral arterial disease I73.9 ; Palmer's esophagus determined by endoscopy K22.70 ; Chronic obstructive pulmonary disease, unspecified COPD type J44.9 ; Tobacco dependence F17.200 and Mixed hyperlipidemia E78.2 Quinton Callahan III, MD [address] [place] [address] [place] [address] 10/31/2023 Quinton Callahan Peripheral arterial disease I73.9 ; Benign prostatic hyperplasia with lower urinary tract symptoms N40.1 ; Palmer's esophagus determined by endoscopy K22.70 ; Chronic obstructive pulmonary disease, unspecified COPD type J44.9 ; Tobacco dependence F17.200 ; Mixed hyperlipidemia E78.2 ; Acute right-sided low back pain with right-sided sciatica M54.41 and Overweight E66.3 Quinton Callahan III, MD [address] [place] [address] [place] [address] 12/28/2023 Quinton Callahan Peripheral arterial disease I73.9 ; Chronic obstructive pulmonary disease, unspecified COPD type J44.9 ; Benign prostatic hyperplasia with lower urinary tract symptoms N40.1 ; Palmer's esophagus determined by endoscopy K22.70 ; Hiatal hernia K44.9 ; Overweight E66.3 ; Tobacco dependence F17.200 and Mixed hyperlipidemia E78.2 Quinton Callahan III, MD [address] [place] [address] [place] [address] 06/12/2024 Quinton Callahan Peripheral arterial disease I73.9 ; Benign prostatic hyperplasia with lower urinary tract symptoms N40.1 ; Palmer's esophagus determined by endoscopy K22.70 ; Chronic obstructive pulmonary disease, unspecified COPD type J44.9 ; Overweight E66.3 ; Tobacco dependence F17.200 and Mixed hyperlipidemia E78.2 Quinton Callahan III, MD [address] [place] [address] [place] [address] 07/24/2023 Quinton Callahan III, MD [address] [place] [address] [place] [address] 08/02/2023 Quinton Callahan III, MD [address] [place] [address] [place] [address] 08/09/2023 Quinton Callahan III, MD [address] [place] [address] [place] [address] 08/16/2023 Quinton Callahan III, MD [address] [place] [address] [place] [address] 08/20/2023 Quinton Callahan III, MD [address] [place] [address] [place] [address] 11/27/2023 Quinton Callahan III, MD [address] [facility] [place] [address] 12/18/2023 Quinton Callahan III, MD [address] [place] [address] [place] [address] 12/21/2023 Quinton Callahan III, MD [address] [place] [address] [place] [address] 12/21/2023 Quinton Callahan III, MD [address] [place] [address] [place] [address] 02/12/2024 Quinton Callahan III, MD [address] [place] [address] [place] [address] 03/04/2024 Quinton Callahan III, MD [address] [place] [address] [place] [address] 05/02/2024 Quinton Callahan III, MD [address] [place] [address] [place] [address] 05/02/2024 Quinton Callahan Peripheral arterial disease I73.[address] [id number] 06/02/2024 Quinton Callahan Assessments Encounter Date Diagnosis [...] ulcers or claudication in the left leg. 07/24/2023 Hiatal hernia (ICD-10 - K44.9) The [...] and pink but swollen with edema extending longterm up the right leg which is also [...] endoscopy and was referred back to his aluminum fabrication supervisor, Dr. Quinton Campos. 10/31/2023 Peripheral arterial disease [...] 05/02/2024 Peripheral arterial disease (ICD-10 - I73.9) 07/10/2024 Benign prostatic hyperplasia with lower urinary tract symptoms (ICD-10 - N40.1) The tamsulosin was continued today. He will notify me if his symptoms worsen. He has had no retention. He has symptoms of prostatism. 07/24/2023 Splenic vein thrombosis (ICD-10 - I82.890) There have been no further signs of thromboembolism. 08/08/2023 Palmer's esophagus determined by endoscopy (ICD-10 - K22.70) He is due for an endoscopy and was referred back to his aluminum fabrication supervisor, Dr. Quinton Campos. 08/27/2023 Palmer's esophagus determined by endoscopy (ICD-10 - K22.70) He is due for an endoscopy and was referred back to his aluminum fabrication supervisor, Dr. Quinton Campos. 09/19/2023 Benign prostatic hyperplasia with lower urinary tract symptoms (ICD-10 - N40.1) The tamsulosin was continued today. He will notify me if his symptoms worsen. He has had no retention. He has symptoms of prostatism. 09/24/2023 Palmer's esophagus determined by endoscopy (ICD-10 - K22.70) He is due for an endoscopy and was referred back to his aluminum fabrication supervisor, Dr. Quinton Campos. 10/15/2023 Chronic obstructive pulmonary disease, unspecified COPD type (ICD-10 - J44.9) He has resumed smoking 5 cigarettes per day. He was counseled about this and made aware of the smoking cessation programs in the area. 10/31/2023 Palmer's esophagus determined by endoscopy (ICD-10 - K22.70) He is due for an endoscopy and was referred back to his aluminum fabrication supervisor, Dr. Quinton Campos. 12/28/2023 Benign prostatic hyperplasia with lower urinary tract symptoms (ICD-10 - N40.1) The tamsulosin was continued today. He will notify me if his symptoms worsen. He has had no retention. He has symptoms of prostatism. 06/12/2024 Palmer's esophagus determined by endoscopy (ICD-10 - K22.70) He is due for an endoscopy and was referred back to his aluminum fabrication supervisor, Dr. Quinton Campos. 07/10/2024 Palmer's esophagus determined by endoscopy (ICD-10 - K22.70) He is due for an endoscopy and was referred back to his aluminum fabrication supervisor, Dr. Quinton Campos. 07/24/2023 Palmer's esophagus determined by endoscopy (ICD-10 - K22.70) He is due for an endoscopy and was referred back to his aluminum fabrication supervisor, Dr. Quinton Campos. 08/08/2023 Chronic obstructive pulmonary [...] endoscopy and was referred back to his aluminum fabrication supervisor, Dr. Quinton Campos. 09/24/2023 Benign prostatic hyperplasia [...] endoscopy and was referred back to his aluminum fabrication supervisor, Dr. Quinton Campos. 06/12/2024 Chronic obstructive pulmonary disease, unspecified COPD type (ICD-10 - J44.9) He has resumed smoking 5 cigarettes per day. He was counseled about this and made aware of the smoking cessation programs in the area. 07/10/2024 Chronic obstructive pulmonary disease, unspecified COPD type (ICD-10 - J44.9) He has resumed smoking 5 cigarettes per day. He was counseled about this and made aware of the smoking cessation programs in the area. 07/24/2023 Benign prostatic hyperplasia with lower urinary [...] recommended aggressive weight loss and sodium restriction. 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 07/24/2023 Tobacco dependence (ICD-10 - F17.200) I [...] consider this and try to cut down. 07/10/2024 Hiatal hernia (ICD-10 - K44.9) The symptoms of his esophageal reflux and hiatal hernia well controlled with current medications. No change in his regimen as needed. 07/24/2023 Hoarseness (ICD-10 - R49.0) He will [...] He was continued on his currrent meddications. 07/10/2024 Umbilical hernia without obstruction and without gangrene (ICD-10 - K42.9) This is asymptomatic and requires no treatment at this time. 07/24/2023 Left bundle branch block (ICD-10 - I44.7) The metal and plastic heater's interpretation of the perfusion test was that [...] He was continued on his currrent meddications. 07/10/2024 Tobacco dependence (ICD-10 - F17.200) I have counseled him about smoking cessation and offered to refer him to smoking cessation programs in the community. He said he would consider this and try to cut down. Plan Of Treatment Pending Test Test Name [...] 09/29/2019 Next Appt Details Provider Name:Quinton Callahan, 09/09/2024 11:30:00 AM, [address] [facility] [address], [place], [address], Provider Name:Quinton Callahan, 10/15/2024 11:00:00 AM, [address] [facility] [address], [place], [address], Insurance Providers Payer Name Payer Address Payer Phone Subscriber Number Group Number Insured Name Patient Relationship to Insured Coverage Start Date Coverage End Date [employer] [address] [place] [phone] [id number] Zan Olivo Self - patient is the insured 4 MEDICARE NGS [address] [place] [phone] [id number] Alcon Juan [id number] Self - patient is the insured Medical [...] right leg Surgical History Surgery Date(Month/Year) Right xqzmz-[id number] amputation 4 arteriogram right lower extremity 05/2019 upper endoscopy, [facility], Dr. Quinton Campos, Palmer's esophagus 2014 upper endoscopy and colonosc opy, [facility], Dr. 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
--- OUTSIDE RECORDS SUMMARY | 2024-07-10 13:33 | XMS_ITS | Encounter Summary ---
Author Organization [facility] Address [address] [place] [address] [place] [address] Phone Care Team Providers Care Salon Receptionist Name Role Phone Quinton Callahan MD Primary Care Provider [phone]- [phone] Encounter Details Date Type Department Care Team (Late st Contact Info) Description 11/28/2023 Procedure [facility] [address] [place] [address] Social History Tobacco Use Types Packs/Day Years [...] on filedocumented in this encounter Care Teams Salon Receptionist Relationship Specialty Start Date End Date Quinton Callahan MD [address] [place] [id number] PCP - General Medical Oncology 11/23/23 documented as of this encounter Additional Source Comments The information contained in this document represents components of the legal health record. It is not the complete legal health record.[facility]
--- OUTSIDE RECORDS SUMMARY | 2024-07-10 13:33 | XMS_ITS | Encounter Summary ---
Author Organization [facility] Address [address] [place] [address] [place] [address] Phone Care Team Providers Care Overcoiler Name Role Phone Quinton Callahan MD Primary Care Provider [phone]- [phone] Encounter Details Date Type Department Care Team (Late st Contact Info) Description 11/28/2023 Procedure [facility] [address] [place] [address] Social History Tobacco Use Types Packs/Day Years [...] on filedocumented in this encounter Care Teams Overcoiler Relationship Specialty Start Date End Date Quinton Callahan MD [address] [place] [address] PCP - General Medical Oncology 11/23/23 documented as of this encounter Additional Source Comments The information contained in this document represents components of the legal health record. It is not the complete legal health record.[facility]
--- OUTSIDE RECORDS SUMMARY | 2024-07-10 13:33 | XMS_ITS ---
Author Organization Quinton Callahan III, MD Address [address] [place] [address] Care Team Providers Care Laser Systems Engineer Name Role Phone Quinton Callahan Primary Care Provider Allergies Allergen (clinical drug ingredient) Drug/Non Drug Allergy documented on EMR Reaction Allergy Type Onset Date Status No Known Drug Allergy Unknown Drug Allergy Active REASON FOR VISIT Follow up Medications Medication SIG (Take, Route, [...] 2 tablets by mouth once daily Active Tylenol 325 MG 1 tablet as needed O rally every 4 hrs Active ASA 1 tab Oral Active Metoprolol Succinate ER 25 MG 1 tablet Orally Once a day Active Nystatin 938326 UNIT/GM 1 application Ex ternally Twice a day 12/21/2023 Active Atorvastatin Calcium 10 MG Take 1 tablet by mouth once daily Active Tamsulosin HCl 0.4 MG Take 2 capsules by mouth once daily Active ibuprofen 1 tab Oral Active Doxycycline Hyclate 100 MG 1 capsule Ora lly twice a day 07/10/2024 Active Social History Tobacco Use: Social History [...] (10-19/day) Vital Signs Temperature 98.6 degrees Fahrenheit 07/11/19 25 Blood pressure systolic 108 mm Hg 07/11/19 25 Blood pressure diastolic 53 mm Hg 025 Heart Rate 70 /min 07/10/2024 Height 73 in 07/10/2024 Weight 185 lbs 07/10/2024 BMI 24.41 kg/m2 07/10/2024 Encounters Encounter Location Date Provider Diagnosis Quinton Callahan III, MD [address] [place] [address] [place] [address] 07/10/2024 Quinton Callahan Peripheral arterial disease I73.9 [...] Assessment Notes Treatment Notes Treatment Clinical Notes 07/10/2024 Peripheral arterial disease (ICD-10 - I73.9) He is seeing the vascular surgeon rita 2 weeks. 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 The plan is to fit him for a prosthesis. He denies any ulcers or claudication in the left leg. 07/10/2024 Benign prostatic hyperplasia with lower urinary tract symptoms (ICD-10 - N40.1) The tamsulosin was continued today. He will notify me if his symptoms worsen. He has had no retention. He has symptoms of prostatism. 07/10/2024 Palmer's esophagus determined by endoscopy (ICD-10 - K22.70) He is due for an endoscopy and was referred back to his pin inserter regulator, Dr. Quinton Campos. 07/10/2024 Chronic obstructive pulmonary [...] Take 2 tablets by mouth once daily Tylenol 325 MG 1 tablet as needed O rally every 4 hrs ASA 1 tab Oral Metoprolol Succinate ER 25 MG 1 tablet Orally Once a day Nystatin 013632 UNIT/GM 1 application Ex ternally Twice a day 12/21/2023 Atorvastatin Calcium 10 MG Take 1 tablet by mouth once daily Tamsulosin HCl 0.4 MG Take 2 capsules by mouth once daily ibuprofen 1 tab Oral Next Appt Details Follow Up: 2 Months, Reason: OV Provider Name:Quinton Callahan, 09/09/2024 11:30:00 AM, [address] [place] [address], [address], Provider Name:Quinton Calalhan, 10/15/2024 11:00:00 AM, [address] [facility] [place], [place], [address], Progress Notes * Katie ENCINASOB:1960 (64 yo M)Acc No.[id number]:07/10/2024 Progress Notes Patient:?Zan ENCINAS Provider:?Quinton Callahan MD :1960???Age:64 Y???Sex:Male Duc e:07/10/2024 Address:[address] [place] [address], [address] [id number] Subjective: * Chief Complaints: * ???1. Follow up. * HPI: ???COVID-19 Screening:?mon charlene changed vanco to doxy, causes naausea, saw charlene last week thinks needs aka, one pack a day. 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 * Surgical History:?tonsillect delia age 6 , tracheotomy due to Krish's angina after dental work 1985, upper endoscopy and colonoscopy, [facility], Dr. Quinton Campos 2009, upper endoscopy, [facility], Dr. Quinton Campos, Palmer's esophagus 2013, arteriogram right lower extremity 05/2019, Right [id number]-[id number]-bfgo amputation 02-04-2024. * Hospitalization/Major Diagno stic Procedure:?Denies Past Hospitalization. * Family History:?Father: dece ased 73 yrs, Diabetes mellitus, coronary artery disease, myocardial infarction, coma with rhabdomyolysis, diagnosed with DM, CVD.?Mother: alive 80 yrs, Several skin cancers, healthy and well, adult-onset diabetes, hypertension, diagnosed with Cancer, DM, HTN.?Siblings: .?Paternal Grand Father: , diagnosed with Cancer.?Paternal Grand Mother: , diagnosed with Cancer.? paternal Grandfather disease Dx with Lung CA. Paternal grandmother disease Dx with pancreatic CA. He has 6 healthy children and 11 healthy grandchildren. One of his siblings has Jakxwgf-Vqttt-Tpbwb disease. One of his children has had an appendectomy. A paternal grandfather of lung cancer and a paternal grandmother of pancreatic cancer. 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 He was born in [place], [place]. He came to [place] in 1984. He is with 6 children. He has 11 grandchildren. He is a of [employer]. He trained at [employer] and served in [employer]. * Medications:?Taking Doxycycl ine Hyclate 100 MG Capsule 1 capsule Orally twice a day , Taking Metoprolol Succinate ER 25 MG Tablet Extended Release 24 Hour 1 tablet Orally Once a day , Taking Nystatin 129191 UNIT/GM Powder 1 application Externally Twice a [...] tablets by mouth once daily , Taking Eliquis 5 MG Tablet 1 Tablet Orally twice a day , Taking Gabapentin 300 MG Capsule 1 capsule Orally four times a day , Taking Gabapentin 400 MG Capsule 1 capsule Orally four times a day , Discontinued Vancomycin HCl 10 GM Solution Reconstituted Intravenous , Medication List reviewed and reconciled with the patient * Allergies:?No Known Drug All ergy. Objective: * Vitals:?Ht: 73, Wt:185, BMI: 24.41, BP:108/53, HR:70, Temp:98.6, Ht-cm: 185.42, Wt-k.91. * Examination: ???General Examination: ?GENERAL APPEARANCE:?pleasant, well nourished, well developed, in no acute distress, calm and relaxed.?HEAD:?atraumatic, normocephalic.?EYES:?eomi, perrla, anicteric, conjugate.?EARS:?normal.?NOSE:?septum intact.?ORAL CAVITY:?normal, unremarkable.?NECK/THYROID:?no jugular venous distention, no carotid bruit, thyroid normal.?LYMPH NODES:?no enlarged lymph nodes,spleen normal.?SKIN:?no suspicious lesions, anicteric.?HEART:?no clicks, gallops, murmurs, or rubs, regular rhythm, S1, S2 normal, no s3, or vascular bruits.?LUNGS:??diminished breath sounds throughout, rhonchi on the RIGHT, rhonchi on the LEFT, scattered inspiratory wheezes.?BREASTS:??no masses palpable bilaterally.?ABDOMEN:?bowel sounds normal, no ascites, no organomegaly, no mass.?RECTAL EXAM:?not examined.?MUSCULOSKELETAL:?extremities unremarkable, no clubbing, cyanosis or edema, 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 Assessment: * Assessment: 1.?Peripheral arterial disea se - I73.9???Notes :He is seeing the vascular surgeon rita [...] endoscopy and was referred back to his pin inserter regulator, Dr. Quinton Campos.???4.?Chronic obstructive pulmonary disease, unspecified COPD type - J44.9???Notes :He has resumed smoking 5 cigarettes per day. He was counseled about this and made aware of the smoking cessation programs in the area.???5.?Splenic vein thrombosis - I82.890???Notes :There have been no further signs of thromboembolism.???6.?Hiatal hernia - K44.9???Notes :The symptoms of his esophageal reflux and hiatal hernia well controlled with current medications. No change in his regimen as needed.???7.?Umbilical hernia without obstruction and without gangrene - K42.9???Notes :This is asymptomatic and requires no treatment at this time.???8.?Tobacco dependence - F17.200???Notes :I have counseled him about smoking cessation and offered to refer him to smoking cessation programs in the community. He said he would consider this and try to cut down.??? Plan: * Treatment: 2.?Others? Continue Nystatin Powder, 394937 UNIT/GM, 1 application, Externally, Twice a day;?Continue Atorvastatin Calcium Tablet, 10 MG, Take 1 tablet by mouth once daily;?Continue Tamsulosin HCl Capsule, 0.4 MG, Take 2 capsules by mouth once daily;?Continue Pantoprazole Sodium Tablet Delayed Release, 40 MG, Take 2 tablets by mouth once daily.?? * Follow Up:?2 Months (Reason: OV) * Images: * The named appointment provid er may or may not be the originator of this progress note, and it is not deemed complete until electronically signed by the appointment provider. Sign off status: Pending * Provider:?Quinton Callahan MD Date:?06/26 Generated for Tristen bustamante/Jai/Allysonitting on:?07/10/2024 01:32 PM EDT History and Physical Notes * [...] RECTAL EXAM: not examined PSYCH: alert, oriented, pizza cook perative with exam, cognitive function intact, good eye contact, speech clear, mood depressed ORAL CAVITY: normal, unremarkable
--- OUTSIDE RECORDS SUMMARY | 2024-07-10 13:33 | XMS_ITS | Patient Health Record ---
Author Organization [facility] Address [address] [place] [address] Care Team Providers Care Manager Behavior Name Role Phone Quinton Callahan MD Primary Care Provider Quinton Mao Unavailable [phone] Reason For Referral No Information Medications Medication [...] Problem Status W/U Status Risk Notes Problem [id number] Encounter for screening for malignant neoplasm of colon (Z12.11) Active confirmed Problem [id number] Aplmer's esopha xu without dysplasia (K22.70) Active confirmed Problem 146786463 Gastroesophageal reflux disease without esophagitis (K21.9) Active confirmed Encounters Encounter Location Date Provider Diagnosis [facility] [address] [place] [address] 08/14/2023 Quinton Campos Plan Of Treatment Future Test Test Name Order Date UPPER GI ENDOSCOPY 03/19/2013 UPPER GI ENDOSCOPY 06/11/2019 COLONOSCOPY 06/11/2019 Insurance Providers Payer Name Payer Address Payer Phone Subscriber Number Group Number Insured Name Patient Relationship to Insured Coverage Start Date Coverage End Date MEDICARE OF [place] [address] [place] [facility] [place] [address] [id number] JUAN FRANCISCO HOWELL Self - patient is the insured Medical (General) History Medical History History ICD Code Colonoscopy in 12/2009 neg e xcept for a hyperplastic polyp, diverticulosis, and internal hemmorhoids GERD with a small area of Ba rrett's esophagus--EGD in 12/2009-small HH-bx neg for dysplasia Splenic vein thrombosis in approx 1999-- had previously been on Coumadin Denies HI,DM,CVA,renal disease EGD 04/2013 with small area o f Palmer's, no dysplasia nor esophagitis; small hiatal hernia COPD PVD with claudication as below Surgical History Surgery Date(Month/Year) 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 Knott 06/18/2019
--- OUTSIDE RECORDS SUMMARY | 2024-07-10 13:33 | XMS_ITS | Encounter Summary ---
Author Organization [facility] Address [address] [place] [address] [place] [address] Phone Care Team Providers Care Building Construction Superintendent Name Role Phone Quinton Callahan MD Primary Care Provider [phone] Encounter Details Date Type Department Care Team (Late st Contact Info) Description 11/28/2023 Procedure [facility] [address] [place] [address] Social History Tobacco Use Types Packs/Day Years [...] on filedocumented in this encounter Care Teams Building Construction Superintendent Relationship Specialty Start Date End Date Quinton Callahan MD [address] [place] [address] PCP - General Medical Oncology 11/23/23 documented as of this encounter Additional Source Comments The information contained in this document represents components of the legal health record. It is not the complete legal health record.[facility]
== END 2024-07-10 13:37 | disposition home or self-care (01) ==
LOC: HO.HVS 12:54
PROVIDERS: PCP Internal Medicine Medical Oncology; Visit Provider Physician Assistant Surgical
DX: S88.111D Complete traumatic amputation at level between knee and ankle, right lower leg, subsequent encounter (principal)
CPT/HCPCS: 99213

== ENCOUNTER → 2024-07-10 12:54 | Outpatient (BNVA) | payer MEDICARE, SELFPAY | PROVIDERS: PCP Internal Medicine Medical Oncology; Visit Provider Physician Assistant Surgical | DX: Z47.81 Encounter for orthopedic aftercare following surgical amputation (principal); Z89.511 Acquired absence of right leg below knee | CPT/HCPCS: 99212 ==

== ENCOUNTER 2024-07-31 13:03 | Outpatient (AMB) | payer MEDICARE, SELFPAY ==
--- NOTE | 2024-07-31 13:13 | MHC.OFFVIS ---
Intake Visit Reasons: 3w follow up R leg check Intake Note: 3 wk follow up Right BKA. Pt states he is still taking abx, still has small non-healing medial incision. changes dressing daily Interventional Pain Physician Required: No Accompanied by: Self / Same As Patient Allergies No Known Allergies Allergy (Verified 07/31/24 13:18) HPI HPI 3w follow up R leg check: Details: Zan is presenting today for a 3w follow up, s/p right BKA. He continues to have VNA services at home and is doing dressing changes several times a week. He states that he thinks the site is getting smaller and there is less thick drainage; he states the drainage is more clear and watery. He states his pain levels have decreased significantly as well, he does continue to endorse pain at night. He states he continues on the Doxy bid; he states it has really been affecting his appetite but he is taking probiotics daily, eating yogurt when he can, and adjusting his food intake. He has no new concerns today. [facility] Medical History Osteomyelitis Krish angina Left bundle branch block Bakers cyst Nicotine dependence, cigarettes, uncomplicated Arthritis BPH (benign prostatic hyperplasia) Elevated cholesterol Complex regional pain syndrome i of right lower limb S/P angiogram of extremity (07/18/23) Atrial fibrillation History of Palmer's esophagus Splenic vein thrombosis History of femoral angiogram GERD (gastroesophageal reflux disease) COPD (chronic obstructive pulmonary disease) Peripheral arterial disease Surgical History History of tonsillectomy Hx of oral surgery Hx of tracheostomy History of esophagogastroduodenoscopy (EGD) H/O colonoscopy Social History Household Members: None Household Members Other:: Son, son girlfriend, grandbaby Housing: House Housing Other:: 3 stairs to climb Are you a primary associate director career services to a significant other at home: No Do you presently have visiting nurse or other home services: Yes Comment: Dr Knott made aware of absent pulse and sensation in right foot Patient Tobacco Use Status: Current everyday Tobacco user Tobacco use type: Cigarette Cigarette Packs Per Day: 0.5 Cigarettes Per Day: 10 Years Smoked: 50 e-Cigarette/Vaping Use: Currently Using Second Hand Smoke Exposure: No Substance Use Type: Marijuana service: No Review of Systems Const Reports as per HPI and Denies weakness ENT Reports Normal hearing present and Denies dizziness Card Reports as per HPI, Denies chest pain, Denies chest pain at rest, Denies chest pain with activity, Denies dyspnea and Denies dyspnea on exertion Resp Reports as per HPI, Denies cough, Denies dyspnea and Denies dyspnea on exertion GI Reports as per HPI, Denies abdominal pain, Denies nausea and Denies vomiting Musc Denies numbness Skin/Breast Reports as per HPI, Denies erythema and Denies wounds Neuro Reports Normal hearing present, Denies dizziness, Denies numbness, Denies Sensory deficit (Neuro) and Denies weakness Psych Reports no additional complaints Endo Reports no additional complaints Physical Exam Const General: healthy appearing and no acute distress Orientation/consciousness: patient oriented x3 HEENT Head: Yes normal to inspection Ears: hearing grossly normal bilaterally Mouth: Normal oral and palatal mucosa present Resp Effort & Inspection: normal respiratory effort and able to speak in complete sentences Auscultation: clear to auscultation bilaterally Cardio Jugular venous distension: no JVD Rate: regular rate Rhythm: regular rhythm Heart sounds: S1 normal heart sound present and S2 normal heart sound present Bruits: no abdominal aortic bruits, no carotid bruits, no femoral bruits and no renal bruits Peripheral pulses: Peripheral pulses 2+ throughout GI Inspection: Yes normal to inspection Palpation (GI): No Abdominal aortic bruit present Skin General skin exam: no rashes or lesions noted Wounds: no wounds Hair: normal Neuro General: patient oriented x3 Cranial nerves: Yes Normal hearing present Cognition (Neuro): normal cognition Gait exam (Neuro): Normal gait present Motor exam (neuro): 5/5 motor strength present throughout Sensory Exam: No Sensory deficit (Neuro) Extrem Other: Right BKA site: Miniscule amt of clear serous drainage noted on bandage. The site is now measuring 0.5x0.3x0.1cm, decreased from 0.7x0.4x0.2 on the previous visit 3w ago. No drainage noted the entire time the site was open, appx 30min. No erythema or swelling noted. Not painful to palpation. General: Yes normal to inspection, Yes full ROM, Yes capillary refill normal and Yes normal gait Assessment & Plan Assessment & Plan (1) Below-knee amputation of right lower extremity: Code(s): S88.111A - Complete traumatic amputation at level between knee and ankle, right lower leg, initial encounter Category: Medical Qualifiers: Encounter type: subsequent encounter Qualified Code(s): S88.111D - Complete traumatic amputation at level between knee and ankle, right lower leg, subsequent encounter Plan: Zan is presenting today on a follow up to osteo in his right BKA site. The BKA was performed on 02/04/24 and he had been healing well until 05/26, when he began having swelling, increased pain, and erythema around the BKA site. He was found to have osteo and sent home with 6w of Vanco. He has since seen ID, whom has switched him to oral Doxy bid for 2m; he continues on the Doxy and has appx 1m left. The site has gotten slightly smaller all around (length, width, and depth) and there is now very slight clear serous drainage noted. He states he is having difficulty with the Doxy and his appetite has decreased. We will change the dressing to Iodoform packing, / with a small bandage over it. I discussed with him to only put a small amount in the wound, not to pack it too tight but don't let it fall out. I discussed with him that if he is not able to put the packing in, then to switch the dressing back to a bandage only. We discussed to continue with the probiotic daily to help his gut with the Doxy. We will have him follow up with us in 1m. If there are any questions or concerns, please do not hesitate to reach out to us. Coding Level of Care Code Est Pt Level 3 (88316) Diagnoses Below-knee amputation of right lower extremity, subsequent encounter S88.111D Encounter type: subsequent encounter
--- OUTSIDE RECORDS SUMMARY | 2024-07-31 15:14 | XMS_ITS ---
Author Organization [facility] Address [address] [place] [address] Care Team Providers Care Information Technology Technician Name Role Phone [place] MORIN, Quinton Primary Care Provider Unavailab Quinton Alvarez Unavailable [phone] REASON FOR VISIT no show Encounters Encounter Location Date Provider Diagnosis [facility] [address] [place] [address] 08/14/2023 Quinton Campos Plan Of Treatment No Information Progress Notes * HERNANDEZJAZMINE HEREDIACARMENHDOB:1960 (63 yo M)Acc No.[id number]:08/14/2023 Patient:?JUAN FRANCISCO HERNANDEZ :1960???Age:63 Y???Sex:Male Address:[address] [place] [address] [place] [address] * true * Date:? Generated for Montanai robby/Jai/eTransmitting on:?07/31/2024 03:13 PM EDT
== END 2024-07-31 13:34 | disposition home or self-care (01) ==
LOC: HO.HVS 13:04
PROVIDERS: PCP Internal Medicine Medical Oncology; Visit Provider Physician Assistant Surgical
DX: T87.89 Other complications of amputation stump (principal)
CPT/HCPCS: 99213

== ENCOUNTER → 2024-07-31 13:03 | Outpatient (BNVA) | payer MEDICARE, SELFPAY | PROVIDERS: PCP Internal Medicine Medical Oncology; Visit Provider Physician Assistant Surgical | DX: Z47.81 Encounter for orthopedic aftercare following surgical amputation (principal); Z89.511 Acquired absence of right leg below knee | CPT/HCPCS: 99212 ==

== ENCOUNTER 2024-08-26 13:02 | Outpatient (AMB) | payer MEDICARE, SELFPAY ==
--- OUTSIDE RECORDS SUMMARY | 2023-08-14 06:30 | XMS_ITS ---
Author Organization [facility] Address [address] [place] [address] Care Team Providers Care Vocational Rehabilitation Teacher Name Role Phone Quinton Callahan MD Primary Care Provider Unavailab Quinton Alvarez [phone] REASON FOR VISIT Patient presents today for EGD, NUGENT'S ESOPHAGUS Encounters Encounter Location Date Provider Diagnosis [facility] [address] [place] [address] 08/14/2023 Quinton Campos Plan Of Treatment No Information Progress Notes * SHAUNA HERNANDEZHDOB:1960 (64 yo M)Acc No.[id number]:08/14/2023 Progress Notes Patient: JUAN FRANCISCO TONG Provider: Angeles Campos MD :1960 A ge:63 Y S ex:Male Date:08/14/2023 Address:[address] [place] [address] [place] [facility] Pcp:Quinton Callahan MD Subjective: * Chief Complaints: [...] Date: 08/14/2023 Generated for Printi ng/Fayuryg/eTransmitting on: 08/26/2024 02:02 PM EDT
--- NOTE | 2024-08-26 13:01 | MHC.OFFVIS ---
Intake Visit Reasons: 1 month follow up Intake Note: Patient presents for 1 month follow up. Patient changes dressings every other day. Notices less drainage and believes his wound is closing. Accompanied by: Self / Same As Patient Allergies No Known Allergies Allergy (Verified 08/26/24 13:04) HPI HPI 1 month follow up: Details: Zan is presenting today on a 1m follow up s/p right BKA. He states he has been doing well at home. He does currently continue with VNA services once a week but he states that will probably end this week, he does not believe he needs them at this point. He states that the open area appears to be closing up and there is minimal drainage; he states he is changing the Allevyn every 2-3 days. He states the pain has been coming and going, with the pain worse at night; he states it feels like a cramping in the BKA stump/back of the thigh. He has no new concerns today. [facility] Medical History Osteomyelitis Krish angina Left bundle branch block Bakers cyst Nicotine dependence, cigarettes, uncomplicated Arthritis BPH (benign prostatic hyperplasia) Elevated cholesterol Complex regional pain syndrome i of right lower limb S/P angiogram of extremity (07/18/23) Atrial fibrillation History of Palmer's esophagus Splenic vein thrombosis History of femoral angiogram GERD (gastroesophageal reflux disease) COPD (chronic obstructive pulmonary disease) Peripheral arterial disease Surgical History History of tonsillectomy Hx of oral surgery Hx of tracheostomy History of esophagogastroduodenoscopy (EGD) H/O colonoscopy Social History Household Members: None Household Members Other:: Son, son girlfriend, grandbaby Housing: House Housing Other:: 3 stairs to climb Are you a primary animal care attendant to a significant other at home: No Do you presently have visiting nurse or other home services: Yes Comment: Dr Knott made aware of absent pulse and sensation in right foot Patient Tobacco Use Status: Current everyday Tobacco user Tobacco use type: Cigarette Cigarette Packs Per Day: 0.5 Cigarettes Per Day: 10 Years Smoked: 50 e-Cigarette/Vaping Use: Currently Using Second Hand Smoke Exposure: No Substance Use Type: Marijuana service: No Review of Systems Const Reports as per HPI and Denies weakness ENT Reports Normal hearing present and Denies dizziness Card Reports as per HPI, Denies chest pain, Denies chest pain at rest, Denies chest pain with activity, Denies dyspnea and Denies dyspnea on exertion Resp Reports as per HPI, Denies cough, Denies dyspnea and Denies dyspnea on exertion GI Reports as per HPI, Denies abdominal pain, Denies nausea and Denies vomiting Musc Denies numbness Skin/Breast Reports as per HPI, Denies erythema and Denies wounds Neuro Reports Normal hearing present, Denies dizziness, Denies numbness, Denies Sensory deficit (Neuro) and Denies weakness Psych Reports no additional complaints Endo Reports no additional complaints Physical Exam Const General: healthy appearing and no acute distress Orientation/consciousness: patient oriented x3 HEENT Head: Yes normal to inspection Ears: hearing grossly normal bilaterally Mouth: Normal oral and palatal mucosa present Resp Effort & Inspection: normal respiratory effort and able to speak in complete sentences Auscultation: clear to auscultation bilaterally Cardio Jugular venous distension: no JVD Rate: regular rate Rhythm: regular rhythm Heart sounds: S1 normal heart sound present and S2 normal heart sound present Bruits: no abdominal aortic bruits, no carotid bruits, no femoral bruits and no renal bruits Peripheral pulses: Peripheral pulses 2+ throughout GI Inspection: Yes normal to inspection Palpation (GI): No Abdominal aortic bruit present Skin General skin exam: no rashes or lesions noted Wounds: no wounds Hair: normal Neuro General: patient oriented x3 Cranial nerves: Yes Normal hearing present Cognition (Neuro): normal cognition Gait exam (Neuro): Normal gait present Motor exam (neuro): 5/5 motor strength present throughout Sensory Exam: No Sensory deficit (Neuro) Extrem Other: Right BKA site: Miniscule amt of clear serous drainage noted on bandage. Site not measured today; the site is closing and appears smaller. No drainage noted the entire time the site was open in this visit. No erythema or swelling noted. Not painful to palpation. General: Yes normal to inspection, Yes full ROM, Yes capillary refill normal and Yes normal gait Assessment & Plan Assessment & Plan (1) Below-knee amputation of right lower extremity: Code(s): S88.111A - Complete traumatic amputation at level between knee and ankle, right lower leg, initial encounter Category: Medical Qualifiers: Encounter type: subsequent encounter Qualified Code(s): S88.111D - Complete traumatic amputation at level between knee and ankle, right lower leg, subsequent encounter Plan: Zan is presenting today on a 1m follow up s/p right BKA, performed on 02/04/24 and he had been healing well until 05/26, when he began having swelling, increased pain, and erythema around the BKA site. He was found to have osteo and sent home with 6w of Vanco. He has since seen ID, whom has switched him to oral Doxy bid for 2m; he continues on the Doxy and has appx 10d left and is following up with ID next Sunday. The site has gotten slightly smaller all around (length, width, and depth) and there is now very minimal slight clear serous drainage noted; he is noticing only a small amount of drainage every 2-3 days. He states he is having continued difficulty with the Doxy and his appetite has decreased. He states it has gotten a little better since taking probiotics. We will change his dressing to just a bandaid/bandage, to be changed daily to prevent any periwound irritation/skin damage. We will have him follow up in 1m. If there are any questions or concerns, please do not hesitate to reach out to us. Coding Level of Care Code Est Pt Level 4 (19027) Diagnoses Below-knee amputation of right lower extremity, subsequent encounter S88.111D Encounter type: subsequent encounter
--- OUTSIDE RECORDS SUMMARY | 2024-08-26 14:02 | XMS_ITS | Patient Health Record ---
Author Organization Quinton Callahan III, MD Address [address] [address] Care Team Providers Care Campaign Advisor Name Role Phone Quinton Callahan Primary Care Provider Allergies Allergen (clinical drug ingredient) Drug/Non Drug Allergy documented on EMR Reaction Allergy Type Onset Date Status No Known Drug Allergy Unknown Drug Allergy Active Results Component Value Reference Range Notes Routine Culture Reviewed date:09/30/2023 06:32:33 AM Interpretation: Performing Lab:[facility] [place], [address] [place] [phone] Notes/Report: Routine Culture No growth after 2 [...] 0.2 - 1.3 BLD Negative Negative - Gram stain Reviewed date:09/30/2023 06:32:33 AM Interpretation: Performing Lab:[facility] [place], [address] [place] [phone] Notes/Report: Gram stain Gram stain results: Gram stain No polys Gram stain 1+ epithelial cells Gram stain No organisms seen CT chest wo con Reviewed date:11/15/2023 07:43:48 PM Interpretation: Performing Lab: Notes/Report: [address] [address] [address] Scan Report Signed with Addenda Patient: Zan Encinas MR#: [id number] : 1960 Acct:[id number] Age/Sex: 63 / M ADM Date: 09/26/23 Loc: HO.CT Attending Dr: Aleksandra Archuleta NP Ordering Physician: Aleksandra Archuleta NP Date of Service: 09/26/23 Procedure(s): CT chest wo IV con Accession Number(s): [id number] cc: Quinton Callahan MD; Aleksandra Archuleta NP ADDENDUM ADDENDUM #1 Results Acknowledgement: Confirmed with Lauren Mejía MA, on 11/06/2023 at 11:03 AM. Report was received and forwarded to Aelksandra Archuleta NP. Rosa Maria Rasheed, 11/06/2023 11:09 [...] called to the ordering clinician by a [place] [facility] Physician Metal Stud Framer. Electronically signed by: Stephanie Courtney MD 11/05/2023 06:52 PM EDT RP Dictated By: Stephanie Courtney MD Signed By: <Electronically signed by Stephanie Courtney MD in OV> 11/05/23 1852 DD/ 0733 TD/TT: 09/26/23 0758 Manager Printing: [address] [address] [address] Scan Report Signed with Addenda Patient: Zan Encinas MR#: [id number] : 1960 Acct:[id number] Age/Sex: 63 / M ADM Date: 09/26/23 Loc: .CT Attending Dr: Apolonia Archuleta NP Ordering Physician: Aleksandra Archuleta NP Date of Service: 09/26/23 Procedure(s): CT tory st wo IV con Accession Number(s): [id number] cc: Quinton Callahan MD; Aleksandra Archuleta NP [...] called to the ordering clinician by a [place] Radiology Physician Metal Stud Framer. Electronically ivania d by: Stephanie Courtney MD 11/05/2023 06:52 PM EDT RP Dictated By: Stephanie Courtney MD Signed By: <Electronically signed by Stephanie Courtney MD in OV> 11/05/23 185 DD/ 2 TD/TT: 09/26/23757 Manager Printing: Complete Blood Count Auto Di ff Reviewed date:10/02/2023 07:28:20 AM Interpretation: Performing Lab:[facility] [place], [address] [place] [address] Notes/Report: White Blood Count 11.0 4.8-10.8 X10*3/uL [...] te Reviewed date:10/02/2023 07:28:20 AM Interpretation: Performing Lab:[facility] [place], [address] [place] [phone] Notes/Report: Erythrocyte Sedimentation Rate 2 0-15 MM/HR Patients with polycythemia and many hemoglobin abnormalities may have depressed sed rates whereas patients with anemia may have elevated sed rates. Prothrombin Time INR Reviewed date:10/02/2023 07:28:20 AM Interpretation: Performing Lab:[facility] [place], [address] [place] [address] Notes/Report: Prothrombin Time 11.2 11.1-13.3 SEC INTERNATIONAL [...] Time Reviewed date:10/02/2023 07:28:20 AM Interpretation: Performing Lab:[facility] [place], [address] [place] [phone] Notes/Report: Partial Thromboplastin Time 29.0 26.0-36.8 SEC For information regarding the monitoring of direct thrombin inhibitors, please refer to Pharmacy. Comprehensive Met. Panel Reviewed date:10/02/2023 07:28:20 AM Interpretation: Performing Lab:[facility] [place], [address] [place] [phone] Notes/Report: Sodium 141 135-145 mmol/L Potassium 3.9 [...] Glomerular Filt Rate > 60 NOTE: For -Omani individuals, multiply the result by 1.210. Chronic [...] Protein Reviewed date:10/02/2023 07:28:20 AM Interpretation: Performing Lab:[facility] [place], [address] [place] [phone] Notes/Report: C Reactive Protein < 0.04 < or = 0.50 mg/dL US venous duplex LE RT Reviewed date:10/02/2023 07:28:20 AM Interpretation: Performing Lab: Notes/Report: [address] [address] Ultrasound Report Signed Patient: Zan Encinas MR#: [id number] : 1960 Acct:[id number] Age/Sex: 63 / M ADM Date: 10/01/23 Loc: HO.ED Attending Dr: Ordering Physician: Gt Cruz Date of Service: 10/01/23 Procedure(s): US venous duplex LE RT Accession Number(s): [id number] cc: Gt Cruz; Quinton Callahan MD EXAMINATION: [...] MD in OV> 10/01/231949 DD/ 43 TD/TT: Manager Printing: [address] [address] Ultrasound Report Signed Patient: Zan Encinas MR#: [id number] : 1960 Acct:[id number] Age/Sex: 63 / M ADM Date: 10/01/23 Loc: .ED Attending Dr: Ordering Physician: Gt Cruz Date of Service: 10/01/23 Procedure(s): US lazaro ous duplex LE RT Accession Number(s): [id number] cc: Gt Cruz; Quinton Callahan MD EXAMINATION: [...] MD in OV> 10/01/231949 DD/ 43 TD/TT: Ecosystem Ecology Professor ist: JOE XR tibia fibula RT 2V Reviewed date:10/02/2023 07:28:20 AM Interpretation: Performing Lab: Notes/Report: [address] [address] XRay Report Signed Patient: Zan Encinas MR#: [id number] : 1960 Acct:[id number] Age/Sex: 63 / M ADM Date: 10/01/23 Loc: HO.ED Attending Dr: Ordering Physician: Gt Cruz Date of Service: 10/01/23 Procedure(s): XR tibia fibula RT 2V Accession Number(s): [id number] cc: Gt Cruz; Quinton Callahan MD EXAMINATION: [...] MD in OV> 10/01/231848 DD/ 58 TD/TT: Manager Printing: JOE [address] [address] XRay Report Signed Patient: Zan Encinas MR#: [id number] : 1960 Acct:[id number] Age/Sex: 63 / M ADM Date: 10/01/23 Loc: HO.ED Attending Dr: Ordering Physician: Gt Cruz Date of Service: 10/01/23 Procedure(s): XR tib ia fibula RT 2V Accession Number(s): [id number] cc: Gt Cruz; Quinton Callahan MD EXAMINATION: XR foot RT 2V, XR tibia fibula RT 2V INDICATION: redness. osteo? COMPARISON: No perti nent prior studies are currently available for comparison. TECHNIQUE: 2 views t he right tibia and fibula and 3 views of the right foot FINDINGS: Vascular surgical clips are seen. Bones are normal anatomic alignment with no ac [place] fracture or dislocation. No bony destructive lesions. [...] by Elder Gil MD in OV> 10/01/23 184 DD/ 58 TD/TT: Ecosystem Ecology Professor ist: MO XR foot RT 2V Reviewed date:10/02/2023 07:28:20 AM Interpretation: Performing Lab: Notes/Report: [address] [address] XRay Report Signed Patient: Zan Encinas MR#: [id number] : 1960 Acct:[id number] Age/Sex: 63 / M ADM Date: 10/01/23 Loc: HO.ED Attending Dr: Ordering Physician: Gt Cruz Date of Service: 10/01/23 Procedure(s): XR foot RT 2V Accession Number(s): [id number] cc: Gt Cruz; Quinton Callahan MD EXAMINATION: [...] in OV> 10/01/23 1849 DD/ 58 TD/TT: Manager Printing: [place] [address] XRay Report Signed Patient: Zan Encinas MR#: [id number] : 1960 Acct:[id number] Age/Sex: 63 / M ADM Date: 10/01/23 Loc: .ED Attending Dr: Ordering Physician: Gt Cruz Date of Service: 10/01/23 Procedure(s): XR chito t RT 2V Accession Number(s): [id number] cc: Gt Cruz; Quinton Callahan MD EXAMINATION: XR foot RT 2V, XR tibia fibula RT 2V INDICATION: redness. osteo? COMPARISON: No perti nent prior studies are currently available for comparison. TECHNIQUE: 2 views t he right tibia and fibula and 3 views of the right foot FINDINGS: Vascular surgical clips are seen. Bones are normal anatomic alignment with no ac [place] fracture or dislocation. No bony destructive lesions. [...] in OV> 10/01/23 1849 DD/ 58 TD/TT: Manager Printing: [place] Lactic Acid Reviewed date:10/02/2023 07:28:20 AM Interpretation: Performing Lab:[facility] [place], [address] [place] [phone] Notes/Report: Lactic Acid 0.7 0.5-2.0 mmol/L Blood Culture (First) Reviewed date:10/14/2023 07:03:40 AM Interpretation: Performing Lab:[facility] [place], [address] [place] [address] Notes/Report: Blood Culture (First) No growth after 5 days. Blood Culture (Second) Reviewed date:10/14/2023 07:03:40 AM Interpretation: Performing Lab:[facility] [place], [address] [place] [phone] Notes/Report: Blood Culture (Second) No growth after 5 days. Complete Blood Count no Diff Reviewed date:10/04/2023 06:10:55 AM Interpretation: Performing Lab:[facility] [place], [address] [place] [phone] Notes/Report: White Blood Count 6.5 4.8-10.8 X10*3/uL [...] Panel Reviewed date:10/04/2023 06:10:55 AM Interpretation: Performing Lab:[facility] [place], [address] [place] [phone] Notes/Report: Sodium 140 135-145 mmol/L Potassium 4.0 [...] Glomerular Filt Rate > 60 NOTE: For -Omani individuals, multiply the result by 1.210. Chronic [...] g Reviewed date:10/04/2023 06:10:55 AM Interpretation: Performing Lab:[facility] [place], [address] [place] [phone] Notes/Report: Glucose Fasting 100 60-99 mg/dL A fasting glucose from 100-125 mg/dl is considered impaired (pre-diabetes). Vancomycin Random Reviewed date:10/04/2023 06:10:55 AM Interpretation: Performing Lab:[facility] [place], [address] [place] [phone] Notes/Report: Vancomycin Random 9.5 15-20 mcg/mL US arterial duplex LE RT Reviewed date:11/15/2023 07:43:48 PM Interpretation: Performing Lab: Notes/Report: [facility] [address] [place] [address] Ultrasound Report Signed Patient: Zan Encinas MR#: [id number] : 1960 Acct:[id number] Age/Sex: 63 / M ADM Date: 11/01/23 Loc: HO.US Attending Dr: Bimal Knott MD Ordering Physician: Bimal Knott MD Date of Service: 11/01/23 Procedure(s): US arterial duplex LE RT Accession Number(s): [id number] cc: Quinton Callahan MD; Bimal Knott MD [...] Popliteal: Occluded Tibial: Occluded Distal femoral to dufup-ipi-nodf bypass graft: Occluded There is a large complex multiseptated cystic collection seen in the proximal calf US/US arterial duplex LE RT IMPRESSION: 1. There is occlusion of the distal SFA and popliteal artery with a distal femoral to mdwxm-ohn-zwar bypass graft which is also occluded. 2. There is a large multiseptated cystic collection in the proximal calf. Electronically signed by: Frankie Jimenez MD 11/01/2023 04:34 PM EDT Dictated By: Frankie Jimenez MD Signed By: <Electronically signed by Frankie Jimenez MD in OV> 11/01/23 1634 DD/ 1313 TD/TT: 11/01/23 1400 Manager Printing: [place] [address] Ultrasound Report Signed Patient: Zan Encinas MR#: [id number] : 1960 Acct:[id number] Age/Sex: 63 / M ADM Date: 11/01/23 Loc: HO.US Attending Dr: Bimal Knott MD Ordering Physician: Bimal Knott MD Date of Service: 11/01/23 Procedure(s): US arterial duplex LE RT Accession Number(s): [id number] cc: Quinton Callahan MD; Bimal Knott MD [...] Popliteal: Occluded Tibial: Occluded Distal femoral to ffosw-rgt-dncy bypass graft: Occluded There is a large com plex multiseptated cystic collection seen in the proximal calf U S/US arterial duplex LE RT IMPRESSION: 1. There is occlusio n of the distal SFA and popliteal artery with a distal femoral to fcebt-kxi-pusl bypass graft which is also occluded. 2. There is a large multiseptated cystic collection in the proximal calf. Electronically ivania d by: Frankie Jimenez MD 11/01/2023 04:34 PM EDT RP Dictated By: Frankie Jimenez MD Signed By: <Electronically signed by Frankie Jimenez MD in OV> 11/01/23 1634 DD/ 1313 TD/TT: 11/01/23 1400 Manager Printing: SS Creatinine GFR POC Reviewed date:11/15/2023 07:43:48 PM Interpretation: Performing Lab:[facility] [place], [address] [place] [address] Notes/Report: [phone] 0.78 >60 0928 HO.[place] Creatinine POC 0.8 0.5-1.4 mg/dL GFR POC > 60 Chronic Kidney Disease: Estimated GFR < 60 mL/min/1.73m2 Severe Kidney Disease: Estimated GFR < 15 mL/min/1.73m2 CT angio abd aorta runoff Reviewed date:11/15/2023 07:43:48 PM Interpretation: Performing Lab: Notes/Report: [address] [address] [address] Scan Report Signed Patient: Zan Encinas MR#: [id number] : 1960 Acct:[id number] Age/Sex: 63 / M ADM Date: 11/09/23 Loc: HO.CT Attending Dr: Bimal Knott MD Ordering Physician: Bimal Knott MD Date of Service: 11/09/23 Procedure(s): CT angio abd aorta runoff Accession Number(s): [id number] cc: Quinton Callahan MD; Bimal Knott MD EXAMINATION: CT ANGIOGRAPHY ABDOMEN, PELVIS AND LOWER EXTREMITY RUNOFF WITH CONTRAST CLINICAL INFORMATION: I73.9 - Peripheral vascular disease, unspecified COMPARISON: CTA runoff June 28, 2023 TECHNIQUE: Initial noncontrast localizing chiropractic doctor images were obtained. Timing boluses at the [...] Femoris: Patent. Popliteal Artery: Popliteal stent occluded. [place] popliteal artery below stent occluded for a [...] artery stent. 2. Below the stent, the [place] popliteal is occluded for a short segment [...] 11/13/23 1517 DD/ 0926 TD/TT: 11/09/23 1013 Manager Printing: [place] [address] CT Scan Report Signed Patient: Zan Encinas MR#: [id number] : 1960 Acct:[id number] Age/Sex: 63 / M ADM Date: 11/09/23 Loc: HO.CT Attending Dr: Bimal Knott MD Ordering Physician: Bimal Knott MD Date of Service: 11/09/23 Procedure(s): CT ang io abd aorta runoff Accession Number(s): [id number] cc: Quinton Callahan MD; Bimal Knott MD EXAMINATION: CT ANGIOGRAPHY ABDOM EN, PELVIS AND LOWER EXTREMITY RUNOFF WITH CONTRAST CLINICAL INFORMATION: I73.9 - Peripheral vascular disease, unspecified COMPARISON: CTA runoff June 28, 2023 TECHNIQUE: Initial noncontrast localizing chiropractic doctor images were obtained. Timing boluses at the [...] Femoris: Patent. Popliteal Artery: Popliteal stent occluded. [place] popliteal artery below stent occluded for a [...] artery stent. 2. Below the stent, the [place] popliteal is occluded for a short segment [...] 11/13/23 1517 DD/ 0926 TD/TT: 11/09/23 1013 Manager Printing: Complete Blood Count Auto Di ff Reviewed date:11/21/2023 06:36:35 AM Interpretation: Performing Lab:[facility] [place], [address] [place] [phone] Notes/Report: White Blood Count 8.4 4.8-10.8 X10*3/uL [...] INR Reviewed date:11/21/2023 06:36:35 AM Interpretation: Performing Lab:[facility] [place], [address] [place] [phone] Notes/Report: Prothrombin Time 10.3 10.9-12.4 SEC INTERNATIONAL [...] Time Reviewed date:11/21/2023 06:36:35 AM Interpretation: Performing Lab:[facility] [place], [address] [place] [address] Notes/Report: Partial Thromboplastin Time 31.9 26.0-36.8 SEC For information regarding the monitoring of direct thrombin inhibitors, please refer to Pharmacy. Basic Metabolic Panel Reviewed date:11/21/2023 06:36:35 AM Interpretation: Performing Lab:[facility] [place], [address] [place] [phone] Notes/Report: Sodium 143 135-145 mmol/L Potassium 4.5 [...] Glomerular Filt Rate > 60 NOTE: For -Omani individuals, multiply the result by 1.210. Chronic Kidney Disease: Estimated GFR < 60 mL/min/1.73m2 Severe Kidney Disease: Estimated GFR < 15 mL/min/1.73m2 Glucose Random 99 60-115 mg/dL Calcium 9.6 8.4-10.2 mg/dL Cancelled Chem Reviewed date:01/07/2024 01:28:15 PM Interpretation: Performing Lab:[facility] [place], [address] [place] [address] Notes/Report: Cancelled Chem SEE NOTE NO SPECIMEN R ECEIVED FOR BUN AND CREAT US arterial duplex LE RT Reviewed date:01/24/2024 07:41:27 AM Interpretation: Performing Lab: Notes/Report: [facility] [address] [facility] [place] [address] Ultrasound Report Signed Patient: Zan Encinas MR#: [id number] : 1960 Acct:[id number] Age/Sex: 63 / M ADM Date: 01/01/24 Loc: .US Attending Dr: Bimal Knott MD Ordering Physician: Sera Saxena PA-C Date of Service: 01/01/24 Procedure(s): US arterial duplex LE RT Accession Number(s): [id number] cc: Quinton Callahan MD; Sera Saxena PA-C [...] by: Coleman Chaidez MD 01/23/2024 01:03 PM [facility] Dictated By: Coleman Chaidez MD Signed By: <Electronically signed by Coleman Chaidez MD in OV> 01/23/24 1303 DD/ 1430 TD/TT: 01/01/24 1517 Manager Printing: [place] [address] Ultrasound Report Signed Patient: Zan Encinas MR#: [id number] : 1960 Acct:[id number] Age/Sex: 63 / M ADM Date: 01/01/24 Loc: . Attending Dr: Bimal Knott MD Ordering Physician: Sera Saxena PA-C Date of Service: 01/01/24 Procedure(s): US arterial duplex LE RT Accession Number(s): [id number] cc: Quinton Callahan MD; Sera Saxena PA-C [...] by: Coleman Chaidez MD 01/23/2024 01:03 PM [facility] Dictated By: Coleman Chaidez MD Signed By: <Electronically signed by Coleman Chaidez MD in OV> 01/23/24 1303 DD/ 1430 TD/TT: 01/01/24 1517 Manager Printing: Complete Blood Count Auto Di ff Reviewed date:01/07/2024 01:28:15 PM Interpretation: Performing Lab:[facility] [place], [address] [place] [address] Notes/Report: White Blood Count 8.2 4.8-10.8 X10*3/uL [...] Drip Reviewed date:01/08/2024 08:33:39 AM Interpretation: Performing Lab:[address] [address] Notes/Report: PTT Heparin Drip 33.9 53-77.9 SEC For information regarding the monitoring of heparin therapy, please refer to Pharmacy. Fibrinogen Reviewed date:01/08/2024 08:33:39 AM Interpretation: Performing Lab:[address] [address] Notes/Report: Fibrinogen 465 259-690 MG/DL Blood Urea Nitrogen Reviewed date:01/07/2024 01:28:15 PM Interpretation: Performing Lab:[address] [address] Notes/Report: Blood Urea Nitrogen 16 9-16 mg/dL Creatinine Reviewed date:01/07/2024 01:28:15 PM Interpretation: Performing Lab:[address] [address] Notes/Report: Creatinine 0.81 0.5-1.4 mg/dL Creatinine Clr Calc Pharmacy 99.7 eGFR (calculated from the MDRD study equation) and eCrCl (calculated from the Cockcroft-Gault equation) are based on different parameters and may not yield comparable results. If eCrCl result is absurd, please check patient's height/weight. Estimated Glomerular Filt Rate > 60 NOTE: For -Omani individuals, multiply the result by 1.210. Chronic Kidney Disease: Estimated GFR < 60 mL/min/1.73m2 Severe Kidney Disease: Estimated GFR < 15 mL/min/1.73m2 ACT LR Reviewed date:01/16/2024 08:51:12 AM Interpretation: Performing Lab:[address] [address] Notes/Report: out of range low [id number] HO.[place] 0906 HO.MULVEC Fibrinogen Reviewed date:01/08/2024 08:33:39 AM Interpretation: Performing Lab:[address] [address] Notes/Report: Fibrinogen 445 259-690 MG/DL Complete Blood Count no Diff Reviewed date:01/10/2024 09:47:57 AM Interpretation: Performing Lab:[address] [address] Notes/Report: White Blood Count 28.7 4.8-10.8 X10*3/uL [...] ff Reviewed date:01/08/2024 08:33:39 AM Interpretation: Performing Lab:[facility] [place], [address] [place] [address] Notes/Report: White Blood Count 10.1 4.8-10.8 X10*3/uL [...] gy Reviewed date:01/08/2024 02:05:08 PM Interpretation: Performing Lab:[facility] [place], [address] [place] [address] Notes/Report: Hold Lav - Possible Hematology SEE NOTE Specimen will be held untested for 8 hours. Call Hematology if testing is desired. PTT Heparin Drip Reviewed date:01/08/2024 08:33:39 AM Interpretation: Performing Lab:[address] [address] Notes/Report: PTT Heparin Drip 40.9 53-77.9 SEC For information regarding the monitoring of heparin therapy, please refer to Pharmacy. Fibrinogen Reviewed date:01/08/2024 08:33:39 AM Interpretation: Performing Lab:[facility] [place], [address] [place] [address] Notes/Report: Fibrinogen 432 259-690 MG/DL Basic Metabolic Panel Reviewed date:01/08/2024 08:33:39 AM Interpretation: Performing Lab:[address] [address] Notes/Report: Sodium 138 135-145 mmol/L Potassium 3.8 [...] Phosphorus Reviewed date:01/08/2024 08:33:39 AM Interpretation: Performing Lab:[facility] [place], [address] [place] [address] Notes/Report: Phosphorus 2.9 2.7-4.5 mg/dL Magnesium Reviewed date:01/08/2024 08:33:39 AM Interpretation: Performing Lab:[facility] [place], [address] [place] [address] Notes/Report: Magnesium 1.8 1.6-2.6 mg/dL Albumin Level Reviewed date:01/08/2024 08:33:39 AM Interpretation: Performing Lab:[facility] [place], [address] [place] [address] Notes/Report: Albumin Level 3.2 3.5-5.0 g/dL ACT LR Reviewed date:01/11/2024 01:49:27 PM Interpretation: Performing Lab:[facility] [place], [address] [place] [address] Notes/Report: 109 [id number] HO.[place] 0846 HO.MULVEC ACT 109 79-173 Celite s Results are converted to a reference Celite ACT value in seconds. A reference interval is unavailable for ACT. Kathy Flores Reviewed date:01/08/2024 02:05:08 PM Interpretation: Performing Lab:[facility] [place], [address] [place] [address] Notes/Report: Kathy Flores See Note Specimen held untested for 24 hours; Call to request Chemistry testing. SLIDE REVIEW Reviewed date:01/08/2024 02:05:08 PM Interpretation: Performing Lab:[facility] [place], [address] [place] [address] Notes/Report: SLIDE REVIEW VERIFIED Type and Screen Reviewed date:01/11/2024 01:49:26 PM Interpretation: Performing Lab:[facility] [place], [address] [place] [address] Notes/Report: Results at Issue Units as of 01/09/24 0930 ... Test View Group: Most Recent HGB HCT Results LABORATORY Date Time Test Result Flag Normal Range 01/09/2434 HGB 7.7 L 14.0-18.0 g/dl 01/09/24 0534 [...] JONAS on 01/10/24 at 1916 by BORIS. 11/14/24 1935 HCT PENDING RECEIPT 42.0-52.0 % 01/10/24 1749 HCT 10.5 #*L 42.0-52.0 % Results of [...] HCT called to and read back by allyve on 01/10/24 at 2000 by BORIS. Results at Issue Units as of 01/11/24 0134 ... Test View Group: Most Recent Platelet Count LABORATORY Date Time Test Result Flag Normal Range 01/11/24 0500 PLT PENDING RECEIPT 160-400 X10*3/uL 01/11/24 0110 PLT 197 # 160-400 X10*3/uL mL/HR Rate to transfuse BBK Product 100 Results at Issue Units as of 01/11/241 ... Test View Group: Most Recent Coag [...] Cells Reviewed date:01/11/2024 01:49:26 PM Interpretation: Performing Lab:[facility] [place], [address] [place] [address] Notes/Report: Red Blood Cells [id number] ON RC Red Blood Cells TRANSFUSED 01/09/24 0929 Red Blood Cells [id number] OP RC Red Blood Cells TRANSFUSED 01/09/24 1520 Red Blood Cells [id number] OP RC Red Blood Cells TRANSFUSED 01/10/24 0154 Red Blood Cells [id number] OP RC Red Blood Cells TRANSFUSED 01/10/24 1938 Red Blood Cells [id number] OP RC Red Blood Cells TRANSFUSED 01/10/242025 Red Blood Cells [id number] OP RC Red Blood Cells TRANSFUSED 01/10/24 215 Red Blood Cells [id number] OP RC Red Blood Cells TRANSFUSED 01/10/242025 Red Blood Cells [id number] OP RC Red Blood Cells TRANSFUSED 01/11/24 0159 Red Blood Cells [id number] OP RC Red Blood Cells TRANSFUSED 01/11/24 0159 Arterial Blood Gases - POC Reviewed date:01/08/2024 02:05:08 PM Interpretation: Performing Lab:[facility] [place], [address] [place] [address] Notes/Report: ABG pH 7.42 7.35-7.45 METER #: [id number] additional_comment: Cbgreavet ctrbpavlova ABG pCO2 34 32-45 mmHg METER #: [id number] additional_comment: Cbgreavet ctrbpavlova ABG pO2 95 83-108 mmHg METER #: [id number] additional_comment: Cbgreavet ctrbpavlova ABG Base Excess -1.2 METER #: [id number] additional_comment: Cbgreavet ctrbpavlova ABG HCO3 22 22-26 mmol/L METER #: [id number] additional_comment: Cbgreavet ctrbpavlova ABG O2 % Saturation 99.0 METER #: [id number] additional_comment: Cbgreavet ctrbpavlova Pheresis Platelets Reviewed date:01/11/2024 01:49:27 PM Interpretation: Performing Lab:[facility], [place], [address] [place] [address] Notes/Report: Pheresis Platelets [id number] OP PHPLT Pheresis Platelets TRANSFUSED 01/11/24 0133 Hold Green Gel Reviewed date:01/08/2024 02:05:08 PM Interpretation: Performing Lab:[facility], [place], [address] [place] [address] Notes/Report: Hold Green Gel See Note Specimen held untested for 24 hours; Call to request Chemistry testing. Fresh Frozen Plasma Reviewed date:01/11/2024 01:49:27 PM Interpretation: Performing Lab:[facility], [place], [address] [place] [address] Notes/Report: Fresh Frozen Plasma [id number] AP FFP Fresh Frozen Plasma TRANSFUSED 01/11/24 0159 Fresh Frozen Plasma [id number] OP FFP Fresh Frozen Plasma TRANSFUSED 01/10/[address] abdomen pelvis w con Reviewed date:01/08/2024 02:05:08 PM Interpretation: Performing Lab: Notes/Report: [address] [address] [address] Scan Report Signed Patient: Zan Encinas MR#: [id number] : 1960 Acct:[id number] Age/Sex: 63 / M ADM Date: 01/07/24 Loc: [facility] 255-[address]: Bimal Knott MD Ordering Physician: Sawyer Case MD Date of Service: 01/08/24 Procedure(s): CT abdomen pelvis w IV con Accession Number(s): [id number] cc: Quinton Callahan MD; Sawyer Case MD [...] right superficial femoral vein. 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 OSSEOUS STRUCTURES: Multilevel thoracolumbar [...] by: Theo Stern MD 01/08/2024 12:21 PM [facility] Dictated By: Theo Lagunas MD Signed By: <Electronically signed by Theo Steven MD in OV> 01/08/24 1221 DD/ 1105 TD/TT: 01/08/24 1125 Manager Printing: [address] [address] [address] Scan Report Signed Patient: Zan Encinas MR#: [id number] : 1960 Acct:[id number] Age/Sex: 63 / M ADM Date: 01/07/24 Loc: .ICU 255-[address]: Bimal Knott MD Ordering Physician: Sawyer Case MD Date of Service: 01/08/24 Procedure(s): CT abd omen pelvis w IV con Accession Number(s): [id number] cc: Quinton Callahan MD; Sawyer Case MD [...] right superficial femoral vein. 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 OSSEOUS STRUCTURES: Multilevel thoracolumbar [...] by: Theo Stern MD 01/08/2024 12:21 PM [facility] Dictated By: Theo Sawyer MD Signed By: <Electronically signed by Theo Steven MD in OV> 01/08/24 1221 DD/ 1105 TD/TT: 01/08/24 1125 Manager Printing: Fibrinogen Reviewed date:01/08/2024 08:33:39 AM Interpretation: Performing Lab:[facility], [place], [address] [place] [address] Notes/Report: Fibrinogen 441 259-690 MG/DL Complete Blood Count Auto Di ff Reviewed date:01/08/2024 02:05:08 PM Interpretation: Performing Lab:[facility] [place], [address] [place] [address] Notes/Report: White Blood Count 20.0 4.8-10.8 X10*3/uL [...] Drip Reviewed date:01/08/2024 02:05:08 PM Interpretation: Performing Lab:[facility] [place], [address] [place] [address] Notes/Report: PTT Heparin Drip > 200.0 53-77.9 SEC Results of PTT-HD called to and read back by MARIELA on 01/08/24 at 1155 by FROY. For information regarding the monitoring of heparin therapy, please refer to Pharmacy. Basic Metabolic Panel Reviewed date:01/10/2024 09:47:57 AM Interpretation: Performing Lab:[facility] [place], [address] [place] [address] Notes/Report: Sodium 134 135-145 mmol/L Potassium 4.9 [...] Phosphorus Reviewed date:01/10/2024 09:47:57 AM Interpretation: Performing Lab:[facility] [place], [address] [place] [address] Notes/Report: Phosphorus 4.1 2.7-4.5 mg/dL Magnesium Reviewed date:01/10/2024 09:47:57 AM Interpretation: Performing Lab:[facility] [place], [address] [place] [address] Notes/Report: Magnesium 1.9 1.6-2.6 mg/dL Complete Blood Count Auto Di ff Reviewed date:01/10/2024 09:47:57 AM Interpretation: Performing Lab:[facility] [place], [address] [place] [address] Notes/Report: White Blood Count 21.8 4.8-10.8 X10*3/uL [...] REVIEW Reviewed date:01/10/2024 09:47:57 AM Interpretation: Performing Lab:[facility] [place], [address] [place] [address] Notes/Report: SLIDE REVIEW VERIFIED ACT LR Reviewed date:01/11/2024 01:49:27 PM Interpretation: Performing Lab:[facility] [place], [address] [place] [address] Notes/Report: 203 [id number] HO.GUILHERME 0855 mulvec ACT 203 79-173 Celite s Results are converted to a reference Celite ACT value in seconds. A reference interval is unavailable for ACT. Complete Blood Count Auto Di ff Reviewed date:01/10/2024 09:47:57 AM Interpretation: Performing Lab:[facility] [place], [address] [place] [address] Notes/Report: White Blood Count 16.7 4.8-10.8 X10*3/uL [...] gy Reviewed date:01/10/2024 09:47:57 AM Interpretation: Performing Lab:[address] [address] Notes/Report: Hold Lav - Possible Hematology SEE NOTE Specimen will be held untested for 8 hours. Call Hematology if testing is desired. Prothrombin Time INR Reviewed date:01/10/2024 09:47:57 AM Interpretation: Performing Lab:[address] [address] Notes/Report: Prothrombin Time 11.5 10.9-12.4 SEC INTERNATIONAL [...] Drip Reviewed date:01/10/2024 09:47:57 AM Interpretation: Performing Lab:[address] [address] Notes/Report: PTT Heparin Drip 28.1 53-77.9 SEC For information regarding the monitoring of heparin therapy, please refer to Pharmacy. Basic Metabolic Panel Reviewed date:01/10/2024 09:47:57 AM Interpretation: Performing Lab:[address] [address] Notes/Report: Sodium 136 135-145 mmol/L Potassium 4.5 [...] Phosphorus Reviewed date:01/10/2024 09:47:57 AM Interpretation: Performing Lab:[address] [address] Notes/Report: Phosphorus 4.0 2.7-4.5 mg/dL Magnesium Reviewed date:01/10/2024 09:47:57 AM Interpretation: Performing Lab:[facility] [place], [address] [place] [address] Notes/Report: Magnesium 1.9 1.6-2.6 mg/dL Albumin Level Reviewed date:01/10/2024 09:47:57 AM Interpretation: Performing Lab:[facility] [place], [address] [place] [address] Notes/Report: Albumin Level 3.2 3.5-5.0 g/dL SLIDE REVIEW Reviewed date:01/10/2024 09:47:57 AM Interpretation: Performing Lab:[facility] [place], [address] [place] [address] Notes/Report: SLIDE REVIEW VERIFIED Complete Blood Count Auto Di ff Reviewed date:01/10/2024 09:47:57 AM Interpretation: Performing Lab:[facility] [place], [address] [place] [address] Notes/Report: White Blood Count 10.8 4.8-10.8 X10*3/uL [...] Drip Reviewed date:01/10/2024 09:47:57 AM Interpretation: Performing Lab:[facility] [place], [address] [place] [address] Notes/Report: PTT Heparin Drip 34.2 53-77.9 SEC For information regarding the monitoring of heparin therapy, please refer to Pharmacy. Complete Blood Count Auto Di ff Reviewed date:01/10/2024 09:47:57 AM Interpretation: Performing Lab:[facility] [place], [address] [place] [address] Notes/Report: White Blood Count 8.4 4.8-10.8 X10*3/uL [...] Panel Reviewed date:01/10/2024 09:47:57 AM Interpretation: Performing Lab:[facility] [place], [address] [place] [address] Notes/Report: Sodium 135 135-145 mmol/L Potassium 4.5 [...] Phosphorus Reviewed date:01/10/2024 09:47:57 AM Interpretation: Performing Lab:[facility] [place], [address] [place] [address] Notes/Report: Phosphorus 3.0 2.7-4.5 mg/dL Magnesium Reviewed date:01/10/2024 09:47:57 AM Interpretation: Performing Lab:[facility] [place], [address] [place] [address] Notes/Report: Magnesium 2.2 1.6-2.6 mg/dL PTT Heparin Drip Reviewed date:01/10/2024 09:47:57 AM Interpretation: Performing Lab:[facility] [place], [address] [place] [address] Notes/Report: PTT Heparin Drip 55.2 53-77.9 SEC For information regarding the monitoring of heparin therapy, please refer to Pharmacy. Complete Blood Count Auto Di ff Reviewed date:01/10/2024 09:47:57 AM Interpretation: Performing Lab:[facility] [place], [address] [place] [address] Notes/Report: White Blood Count 9.2 4.8-10.8 X10*3/uL [...] Hematocrit Reviewed date:01/11/2024 01:49:27 PM Interpretation: Performing Lab:[facility] [place], [address] [place] [address] Notes/Report: Hemoglobin 3.3 14.0-18.0 g/dl Results of HGB called to and read back by JONAS on 01/10/24 at 1959 by BORIS. Hematocrit 9.9 42.0-52.0 % Results of HCT called to and read back by JONAS on 01/10/24 at 2001 by BORIS. Pathologist Review - CBC Reviewed date:01/11/2024 01:49:26 PM Interpretation: Performing Lab:[address] [address] Notes/Report: Pathologist Review - CBC SEE NOTE Normochromic normocytic anemia. - Javi Farias M.D. Pathology Prothrombin Time INR Reviewed date:01/10/2024 09:47:57 AM Interpretation: Performing Lab:[facility] [place], [address] [place] [address] Notes/Report: Prothrombin Time 12.1 10.9-12.4 SEC INTERNATIONAL [...] Drip Reviewed date:01/10/2024 09:47:57 AM Interpretation: Performing Lab:[address] [address] Notes/Report: PTT Heparin Drip 44.5 53-77.9 SEC For information regarding the monitoring of heparin therapy, please refer to Pharmacy. Comprehensive Met. Panel Reviewed date:01/11/2024 01:49:27 PM Interpretation: Performing Lab:[address] [address] Notes/Report: Sodium 135 135-145 mmol/L Potassium 4.9 [...] Panel Reviewed date:01/10/2024 09:47:57 AM Interpretation: Performing Lab:[facility] [place], [address] [place] [address] Notes/Report: Sodium 136 135-145 mmol/L Potassium 4.1 [...] Acid Reviewed date:01/11/2024 01:49:27 PM Interpretation: Performing Lab:[facility] [place], [address] [place] [address] Notes/Report: Lactic Acid 7.8 0.5-2.0 mmol/L Critical value for test(s): LACTA Results called to and read back by:VIKRAM Person calling: TANG Date:01-10-2024 Time:2121 Phosphorus Reviewed date:01/10/2024 09:47:57 AM Interpretation: Performing Lab:[facility] [place], [address] [place] [address] Notes/Report: Phosphorus 2.8 2.7-4.5 mg/dL Magnesium Reviewed date:01/10/2024 09:47:57 AM Interpretation: Performing Lab:[facility] [place], [address] [place] [address] Notes/Report: Magnesium 2.0 1.6-2.6 mg/dL Albumin Level Reviewed date:01/10/2024 09:47:57 AM Interpretation: Performing Lab:[facility] [place], [address] [place] [address] Notes/Report: Albumin Level 3.5 3.5-5.0 g/dL Lactic Acid-LAB USE ONLY Reviewed date:01/11/2024 01:49:27 PM Interpretation: Performing Lab:[facility] [place], [address] [place] [address] Notes/Report: Lactic Acid-LAB USE ONLY 1.9 0.5-2.0 mmol/L Venous Blood Gases - POC Reviewed date:01/11/2024 01:49:27 PM Interpretation: Performing Lab:[facility] [place], [address] [place] [address] Notes/Report: VBG pH 7.42 7.32-7.43 METER #: [id number] 0250C VBG pCO2 25 METER #: [id number] 0250C VBG pO2 76 METER #: [id number] 0250C VBG Base Excess -6.7 METER #: [id number] VBG HCO3 16 22-26 mmol/L METER #: [id number] 0250C VBG O2 % Saturation TNP Hold Green Gel Reviewed date:01/11/2024 01:49:27 PM Interpretation: Performing Lab:[facility] [place], [address] [place] [address] Notes/Report: Hold Green Gel See Note Specimen held untested for 24 hours; Call to request Chemistry testing. CT abdomen pelvis w con Reviewed date:01/11/2024 01:49:27 PM Interpretation: Performing Lab: Notes/Report: [address] [place] [address] CT Scan Report Signed Patient: Zan Encinas MR#: [id number] : 1960 Acct:[id number] Age/Sex: 63 / M ADM Date: 01/07/24 Loc: .[facility] 255-[address]: Bimal Knott MD Ordering Physician: Som Vela NP Date of Service: 01/10/24 Procedure(s): CT abdomen pelvis w IV con Accession Number(s): [id number] cc: Quinton Callahan MD; Som Vela NP [...] by: Jarret Ferrara MD 01/10/2024 10:00 PM [facility] Dictated By: Jarret Ferrara MD Signed By: <Electronically signed by Jarret Ferrara MD in OV> 01/10/242199 DD/ 21 TD/TT: 01/10/242021 Manager Printing: [address] [address] [address] Scan Report Signed Patient: Zan Encinas MR#: [id number] : 1960 Acct:[id number] Age/Sex: 63 / M ADM Date: 01/07/24 Loc: .ICU 255-[address]: Bimal Knott MD Ordering Physician: Som Vela NP Date of Service: 01/10/24 Procedure(s): CT abd omen pelvis w IV con Accession Number(s): [id number] cc: Quinton Callahan MD; Som Vela NP [...] by: Jarret Ferrara MD 01/10/2024 10:00 PM [facility] Dictated By: Jarret Ferrara MD Signed By: <Electronically signed by Jarret Ferrara MD in OV> 01/10/242199 DD/ 21 TD/TT: 01/10/242021 Manager Printing: PTT Heparin Drip Reviewed date:01/11/2024 01:49:27 PM Interpretation: Performing Lab:[facility] [place], [address] [place] [address] Notes/Report: PTT Heparin Drip 80.2 53-77.9 SEC For information regarding the monitoring of heparin therapy, please refer to Pharmacy. PTT Heparin Drip Reviewed date:01/11/2024 01:49:27 PM Interpretation: Performing Lab:[facility] [place], [address] [place] [address] Notes/Report: PTT Heparin Drip 66.0 53-77.9 SEC For information regarding the monitoring of heparin therapy, please refer to Pharmacy. Complete Blood Count Auto Di ff Reviewed date:01/11/2024 01:49:26 PM Interpretation: Performing Lab:[facility] [place], [address] [place] [address] Notes/Report: White Blood Count 17.6 4.8-10.8 X10*3/uL [...] Diff Reviewed date:01/12/2024 07:43:31 AM Interpretation: Performing Lab:[facility] [place], [address] [place] [address] Notes/Report: White Blood Count 12.3 4.8-10.8 X10*3/uL [...] ff Reviewed date:01/11/2024 01:49:26 PM Interpretation: Performing Lab:[facility] [place], [address] [place] [address] Notes/Report: White Blood Count 18.2 4.8-10.8 X10*3/uL [...] Panel Reviewed date:01/11/2024 01:49:26 PM Interpretation: Performing Lab:[address] [address] Notes/Report: Sodium 135 135-145 mmol/L Potassium 4.6 [...] Phosphorus Reviewed date:01/11/2024 01:49:26 PM Interpretation: Performing Lab:[address] [address] Notes/Report: Phosphorus 4.3 2.7-4.5 mg/dL Magnesium Reviewed date:01/11/2024 01:49:26 PM Interpretation: Performing Lab:[facility] [place], [address] [place] [address] Notes/Report: Magnesium 2.2 1.6-2.6 mg/dL Albumin Level Reviewed date:01/11/2024 01:49:26 PM Interpretation: Performing Lab:[facility] [place], [address] [place] [address] Notes/Report: Albumin Level 3.6 3.5-5.0 g/dL SLIDE REVIEW Reviewed date:01/11/2024 01:49:26 PM Interpretation: Performing Lab:[facility] [place], [address] [place] [address] Notes/Report: SLIDE REVIEW VERIFIED Venous Blood Gases - POC Reviewed date:01/11/2024 01:49:26 PM Interpretation: Performing Lab:[facility] [place], [address] [place] [address] Notes/Report: VBG pH 7.49 7.32-7.43 METER #: [id number] additional_comment: Cb aditya ctrbb henriquezc VBG pCO2 35 METER #: [id number] additional_comment: Cb aditya ctrbb henriquezc VBG pO2 57 METER #: [id number] additional_comment: Cb aditya ctrbb henriquezc VBG Base Excess 4.0 METER #: [id number] additional_comment: Cb aditya ctrbb henriquezc VBG HCO3 27 22-26 mmol/L METER #: [id number] additional_comment: Cb aditya ctrbb henriquezc VBG O2 % Saturation 92.0 METER #: [id number] additional_comment: Jeovany burgess ctrbb henriquezc Venous Blood Gases - POC Reviewed date:01/11/2024 01:49:26 PM Interpretation: Performing Lab:[facility] [place], [address] [place] [address] Notes/Report: VBG pH 7.42 7.32-7.43 METER #: [id number] additional_comment: Cb debora ctrbb henriquezc VBG pCO2 42 METER #: [id number] additional_comment: Jeovany stevenson henriquezc VBG pO2 35 METER #: [id number] additional_comment: Jeovany stevenson henriquezc VBG Base Excess 3.7 METER #: [id number] additional_comment: Jeovany stevenson henrimichazc VBG HCO3 28 22-26 mmol/L METER #: [id number] additional_comment: Jeovany stevenson henriquezc VBG O2 % Saturation 62.0 METER #: [id number] additional_comment: Jeovany stevenson henriquezc Complete Blood Count Auto Di ff Reviewed date:01/11/2024 01:49:26 PM Interpretation: Performing Lab:[facility] [place], [address] [place] [address] Notes/Report: White Blood Count 14.9 4.8-10.8 X10*3/uL [...] ff Reviewed date:01/11/2024 08:19:34 PM Interpretation: Performing Lab:[facility] [place], [address] [place] [address] Notes/Report: White Blood Count 14.3 4.8-10.8 X10*3/uL [...] REVIEW Reviewed date:01/11/2024 08:19:34 PM Interpretation: Performing Lab:[facility] [place], [address] [place] [address] Notes/Report: SLIDE REVIEW VERIFIED Basic Metabolic Panel Reviewed date:01/12/2024 07:43:31 AM Interpretation: Performing Lab:[facility] [place], [address] [place] [address] Notes/Report: Sodium 133 135-145 mmol/L Potassium 4.0 [...] Phosphorus Reviewed date:01/12/2024 07:43:31 AM Interpretation: Performing Lab:[facility] [place], [address] [place] [address] Notes/Report: Phosphorus 2.7 2.7-4.5 mg/dL Magnesium Reviewed date:01/12/2024 07:43:31 AM Interpretation: Performing Lab:[facility] [place], [address] [place] [address] Notes/Report: Magnesium 2.4 1.6-2.6 mg/dL Complete Blood Count no Diff Reviewed date:01/13/2024 07:58:52 PM Interpretation: Performing Lab:[facility] [place], [address] [place] [address] Notes/Report: White Blood Count 11.9 4.8-10.8 X10*3/uL [...] ff Reviewed date:01/12/2024 07:43:31 AM Interpretation: Performing Lab:[facility] [place], [address] [place] [address] Notes/Report: White Blood Count 11.0 4.8-10.8 X10*3/uL [...] Panel Reviewed date:01/12/2024 07:43:31 AM Interpretation: Performing Lab:[address] [address] Notes/Report: Sodium 139 135-145 mmol/L Potassium 3.9 [...] Phosphorus Reviewed date:01/12/2024 07:43:31 AM Interpretation: Performing Lab:[address] [address] Notes/Report: Phosphorus 2.8 2.7-4.5 mg/dL Magnesium Reviewed date:01/12/2024 07:43:31 AM Interpretation: Performing Lab:[address] [place] [address] Notes/Report: Magnesium 2.3 1.6-2.6 mg/dL SLIDE REVIEW Reviewed date:01/12/2024 07:43:31 AM Interpretation: Performing Lab:[facility] [place], [address] [place] [address] Notes/Report: SLIDE REVIEW VERIFIED Venous Blood Gases - POC Reviewed date:01/12/2024 07:43:31 AM Interpretation: Performing Lab:[facility] [place], [address] [place] [address] Notes/Report: VBG pH 7.41 7.32-7.43 METER #: [id number] additional_comment: Jeovany stevenson henric VBG pCO2 47 METER #: [id number] additional_comment: Jeovany burgess ctrbb henric VBG pO2 34 METER #: [id number] additional_comment: Jeovany aguilarbb henric VBG Base Excess 5.9 METER #: [id number] additional_comment: Jeovany aguilarbb henric VBG HCO3 31 22-26 mmol/L METER #: [id number] additional_comment: Jeovany aguilarbb henric VBG O2 % Saturation 56.0 METER #: [id number] additional_comment: Jeovany aguilarbb henric Complete Blood Count Auto Di ff Reviewed date:01/12/2024 07:43:31 AM Interpretation: Performing Lab:[facility] [place], [address] [place] [address] Notes/Report: White Blood Count 10.7 4.8-10.8 X10*3/uL [...] ff Reviewed date:01/13/2024 07:58:52 PM Interpretation: Performing Lab:[facility] [place], [address] [place] [address] Notes/Report: White Blood Count 11.2 4.8-10.8 X10*3/uL [...] Diff Reviewed date:01/13/2024 07:58:52 PM Interpretation: Performing Lab:[address] [address] Notes/Report: White Blood Count 12.6 4.8-10.8 X10*3/uL [...] ff Reviewed date:01/13/2024 07:58:52 PM Interpretation: Performing Lab:[address] [address] Notes/Report: White Blood Count 11.1 4.8-10.8 X10*3/uL [...] Panel Reviewed date:01/13/2024 07:58:52 PM Interpretation: Performing Lab:[facility] [place], [address] [place] [address] Notes/Report: Sodium 137 135-145 mmol/L Potassium 3.8 [...] Phosphorus Reviewed date:01/13/2024 07:58:52 PM Interpretation: Performing Lab:[facility] [place], [address] [place] [address] Notes/Report: Phosphorus 3.0 2.7-4.5 mg/dL Magnesium Reviewed date:01/13/2024 07:58:52 PM Interpretation: Performing Lab:[facility] [place], [address] [place] [address] Notes/Report: Magnesium 2.3 1.6-2.6 mg/dL Albumin Level Reviewed date:01/13/2024 07:58:52 PM Interpretation: Performing Lab:[facility] [place], [address] [place] [address] Notes/Report: Albumin Level 3.5 3.5-5.0 g/dL SLIDE REVIEW Reviewed date:01/13/2024 07:58:52 PM Interpretation: Performing Lab:[facility] [place], [address] [place] [address] Notes/Report: SLIDE REVIEW VERIFIED Venous Blood Gases - POC Reviewed date:01/13/2024 07:58:52 PM Interpretation: Performing Lab:[facility] [place], [address] [place] [address] Notes/Report: VBG pH 7.46 7.32-7.43 METER #: [id number] additional_comment: Jeovany janayprakashraiza laurenbb henric VBG pCO2 37 METER #: [id number] additional_comment: Jeovany martinez ctrbb henric VBG pO2 55 METER #: [id number] additional_comment: Jeovany janayespinoza ctrbb henric VBG Base Excess 3.2 METER #: [id number] additional_comment: Jeovany stevenson henric VBG HCO3 27 22-26 mmol/L METER #: [id number] additional_comment: Jeovany stevenson henric VBG O2 % Saturation 87.0 METER #: [id number] additional_comment: Jeovany stevenson henric Complete Blood Count Auto Di ff Reviewed date:01/13/2024 07:58:52 PM Interpretation: Performing Lab:[facility] [place], [address] [place] [address] Notes/Report: White Blood Count 12.6 4.8-10.8 X10*3/uL [...] ff Reviewed date:01/15/2024 06:02:02 AM Interpretation: Performing Lab:[facility] [place], [address] [place] [address] Notes/Report: White Blood Count 13.1 4.8-10.8 X10*3/uL [...] ff Reviewed date:01/15/2024 06:02:02 AM Interpretation: Performing Lab:[facility], [place], [address] [place] [address], [place] [phone] Notes/Report: White Blood Count 12.1 4.8-10.8 X10*3/uL [...] Hematocrit Reviewed date:01/15/2024 06:02:02 AM Interpretation: Performing Lab:[address] [phone] Notes/Report: Hemoglobin 7.9 14.0-18.0 g/dl Hematocrit 23.5 42.0-52.0 % Basic Metabolic Panel Reviewed date:01/15/2024 06:02:02 AM Interpretation: Performing Lab:[facility], [place], [address] [place] [phone] Notes/Report: Sodium 136 135-145 mmol/L Potassium 3.8 [...] Phosphorus Reviewed date:01/15/2024 06:02:02 AM Interpretation: Performing Lab:[facility], [place], [address] [place] [phone] Notes/Report: Phosphorus 2.8 2.7-4.5 mg/dL Magnesium Reviewed date:01/15/2024 06:02:02 AM Interpretation: Performing Lab:[facility], [place], [address] [place] [phone] Notes/Report: Magnesium 2.2 1.6-2.6 mg/dL Albumin Level Reviewed date:01/15/2024 06:02:02 AM Interpretation: Performing Lab:[facility], [place], [address] [place], [place] [address] Notes/Report: Albumin Level 3.4 3.5-5.0 g/dL SLIDE REVIEW Reviewed date:01/15/2024 06:02:02 AM Interpretation: Performing Lab:[facility] [place], [address] [place] [address] Notes/Report: SLIDE REVIEW VERIFIED Complete Blood Count no Diff Reviewed date:01/16/2024 08:51:12 AM Interpretation: Performing Lab:[facility] [place], [address] [place] [address] Notes/Report: White Blood Count 12.7 4.8-10.8 X10*3/uL [...] Diff Reviewed date:01/16/2024 08:51:12 AM Interpretation: Performing Lab:[address] [address] Notes/Report: White Blood Count 9.9 4.8-10.8 X10*3/uL [...] Panel Reviewed date:01/17/2024 05:05:01 AM Interpretation: Performing Lab:[address] [address] Notes/Report: Sodium 135 135-145 mmol/L Potassium 4.2 [...] Magnesium Reviewed date:01/17/2024 05:05:01 AM Interpretation: Performing Lab:[facility] [place], [address] [place] [address] Notes/Report: Magnesium 2.3 1.6-2.6 mg/dL Complete Blood Count Auto Di ff Reviewed date:01/18/2024 08:33:04 PM Interpretation: Performing Lab:[facility] [place], [address] [place] [address] Notes/Report: White Blood Count 12.0 4.8-10.8 X10*3/uL [...] te Reviewed date:01/18/2024 08:33:04 PM Interpretation: Performing Lab:[address] [address] Notes/Report: Erythrocyte Sedimentation Rate 92 0-15 MM/HR Patients with polycythemia and many hemoglobin abnormalities may have depressed sed rates whereas patients with anemia may have elevated sed rates. Prothrombin Time INR Reviewed date:01/18/2024 08:33:04 PM Interpretation: Performing Lab:[address] [address] Notes/Report: Prothrombin Time 13.4 10.9-12.4 SEC INTERNATIONAL [...] Panel Reviewed date:01/18/2024 08:33:04 PM Interpretation: Performing Lab:[address] [address] Notes/Report: Sodium 134 135-145 mmol/L Potassium 4.2 [...] Acid Reviewed date:01/18/2024 08:33:04 PM Interpretation: Performing Lab:[address] [address] Notes/Report: Lactic Acid 1.3 0.5-2.0 mmol/L C Reactive Protein Reviewed date:01/18/2024 08:33:04 PM Interpretation: Performing Lab:[address] [address] Notes/Report: C Reactive Protein 14.10 < or = 0.50 mg/dL Lipase Reviewed date:01/18/2024 08:33:04 PM Interpretation: Performing Lab:[address] [address] Notes/Report: Lipase 24 8-78 U/L SLIDE REVIEW Reviewed date:01/18/2024 08:33:04 PM Interpretation: Performing Lab:[address] [address] Notes/Report: SLIDE REVIEW VERIFIED Blood Culture (First) Reviewed date:01/24/2024 07:41:27 AM Interpretation: Performing Lab:[address] [address] Notes/Report: Blood Culture (First) No growth after 5 days. Blood Culture (Second) Reviewed date:01/24/2024 07:41:27 AM Interpretation: Performing Lab:[facility] [place], [address] [place] [address] Notes/Report: Blood Culture (Second) No growth after 5 days. US arterial duplex LE RT Reviewed date:01/21/2024 07:35:28 AM Interpretation: Performing Lab: Notes/Report: [facility] [address] [place] [address] Ultrasound Report Signed with Addenda Patient: Zan Encinas MR#: [id number] : 1960 Acct:[id number] Age/Sex: 63 / M ADM Date: 01/18/24 Loc: .ED Attending Dr: Ordering Physician: Yuriy Dunbar Date of Service: 01/18/24 Procedure(s): US arterial duplex LE RT Accession Number(s): [id number] cc: Quinton Callahan MD; Yuriy Dunbar ADDENDUM ADDENDUM #1 Findings were communicated by telephone with Dr. Gerard by Dr. Zarate at 4 hours. Electronically signed by: Placido Zarate MD 01/18/2024 08:41 PM [facility] Addendum Dictated By: Yuriy [...] in OV> 01/18/242032 DD/ 150 TD/TT: 01/18/241505 Manager Printing: [employer] [address] Ultrasound Report Signed with Addenda Patient: Zan Encinas MR#: [id number] : 1960 Acct:[id number] Age/Sex: 63 / M ADM Date: 01/18/24 Loc: .ED Attending Dr: Ordering Physician: Yuriy Dunbar Date of Service: 01/18/24 Procedure(s): US arterial duplex LE RT Accession Number(s): [id number] cc: Quinton Callahan MD; Yuriy Dunbar ADDENDUM [...] demonstr able color or spectral Doppler signal. 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 Electronically ivania d by: Placido Zarate MD 01/18/2024 08:33 PM EST RP Dictated By: Yuriy Zarate MD Signed By: <Electronically signed by Yuriy Zarate MD in OV> 01/18/242032 DD/ 02 TD/TT: 01/18/24 1506 Manager Printing: BLANCA XR foot RT min 3V Reviewed date:01/18/2024 08:33:04 PM Interpretation: Performing Lab: Notes/Report: [address] [address] XRay Report Signed Patient: Zan Encinas MR#: [id number] : 1960 Acct:[id number] Age/Sex: 63 / M ADM Date: 01/18/24 Loc: HO.ED Attending Dr: Ordering Physician: Yuriy Dunbar Date of Service: 01/18/24 Procedure(s): XR foot RT min 3V Accession Number(s): [id number] cc: Quinton Callahan MD; Yuriy Dunbar EXAMINATION: [...] 01/18/24 1619 DD/ 1516 TD/TT: 01/18/24 1534 Manager Printing: MICHELA [address] [address] XRay Report Signed Patient: Zan Encinas MR#: [id number] : 1960 Acct:[id number] Age/Sex: 63 / M ADM Date: 01/18/24 Loc: HO.ED Attending Dr: Ordering Physician: Yuriy Dunbar Date of Service: 01/18/24 Procedure(s): XR chito t RT min 3V Accession Number(s): [id number] cc: Quinton Callahan MD; Yuriy Dunbar EXAMINATION: [...] by: Kaushal Cohen MD 01/18/2024 04:19 PM [facility] Dictated By: Kaushal Cohen MD Signed By: <Electronically signed by Kaushal Cohen MD in OV> 01/18/24 1619 DD/ 1516 TD/TT: 01/18/24 1534 Manager Printing: MICHELA Complete Blood Count no Diff Reviewed date:02/04/2024 11:35:53 AM Interpretation: Performing Lab:[facility] [place], [address] [place] [address] Notes/Report: White Blood Count 11.5 4.8-10.8 X10*3/uL [...] INR Reviewed date:02/04/2024 11:35:53 AM Interpretation: Performing Lab:[address] [address] Notes/Report: Prothrombin Time 13.0 10.9-12.4 SEC INTERNATIONAL [...] Time Reviewed date:02/04/2024 11:35:53 AM Interpretation: Performing Lab:[facility] [place], [address] [place] [address] Notes/Report: Partial Thromboplastin Time 33.9 26.0-36.8 SEC For information regarding the monitoring of direct thrombin inhibitors, please refer to Pharmacy. Basic Metabolic Panel Reviewed date:02/04/2024 11:35:53 AM Interpretation: Performing Lab:[address] [address] Notes/Report: Sodium 138 135-145 mmol/L Potassium 4.4 [...] Pathology Reviewed date:02/08/2024 08:35:16 AM Interpretation: Performing Lab:[facility] [place], [address] [place] [address] Notes/Report: ---- Name: Juan Encinaseun Cuevas Age/Sex: 63/M : 1960 Unit#: [id number] Attend Dr: Bimal Knott MD Re02/04/24 Status : ADM IN Location: [facility] 364-1 Disch: ---- SPEC : [id number] RECD : 12/ STATUS: YUSUF MATHUR NUM: [id number] FRANTZ: 02/04/24-[address]: Bimal Knott MD ENTERED: 02/04/24 SP TYPE: Surgical OTHR DR: Quinton Callahan [...] label ed ?right leg? is a right uduii-keq-iusq amputation specimen which measures 34.0 cm in [...] No other erosions or ulcers are identified. [employer] sections are submitted labeled as follows: A1 and A2 sections f rom the proximal hallux; A3 distal phalangeal bone from the hallux, following decalcification; A4 anterior tibial vessels; A5 posterior tibial vessels; A6 a sample of marro w from the margin of resection. Cassettes A3 A4 and A5 are submitted following decalcification. CEDS CONTINUED ON NEXT PAGE ---- Name: Toney Encinas Age/Sex: 63/M : 1960 Unit#: [id number] Attend Dr: Bimal Knott MD Re02/04/24 Status : ADM IN Location: [facility] 364-1 Disch: ---- SPEC : [id number] RECD : 02/04/245 STATUS: YUSUF MATHUR NUM: [id number] FRANTZ: 02/04/24-[address] [facility] [address]: Bimal Knott MD ENTERED: 02/04/24- 216 SP TYPE: Surgical OTHR DR: Quinton Callahan MD ORDERED: Gross Micro L5 Copies To: Quinton Callahan MD [address] [facility], [address] [place] [id number] Bimal Knott MD [facility] [address] [facility] [address] [place] [address] ---- Signed (signature on file) Val Cris 02/06/24 1550 ---- END OF REPORT Type and Screen Reviewed date:02/04/2024 11:35:53 AM Interpretation: Performing Lab:[facility] [place], [address] [place] [address] Notes/Report: Blood Type OP Antibody Screen NEGATIVE Complete Blood Count no Diff Reviewed date:02/08/2024 08:35:16 AM Interpretation: Performing Lab:[facility] [place], [address] [place] [address] Notes/Report: White Blood Count 9.4 4.8-10.8 X10*3/uL [...] ff Reviewed date:02/08/2024 08:35:16 AM Interpretation: Performing Lab:[facility] [place], [address] [place] [address] Notes/Report: White Blood Count 11.2 4.8-10.8 X10*3/uL [...] Panel Reviewed date:02/08/2024 08:35:16 AM Interpretation: Performing Lab:[facility] [place], [address] [place] [address] Notes/Report: Sodium 137 135-145 mmol/L Potassium 3.9 [...] REVIEW Reviewed date:02/08/2024 08:35:16 AM Interpretation: Performing Lab:[address] [address] Notes/Report: SLIDE REVIEW VERIFIED Complete Blood Count no Diff Reviewed date:02/08/2024 08:35:16 AM Interpretation: Performing Lab:[facility] [place], [address] [place] [address] Notes/Report: White Blood Count 9.3 4.8-10.8 X10*3/uL [...] Panel Reviewed date:02/08/2024 08:35:16 AM Interpretation: Performing Lab:[address] [address] Notes/Report: Sodium 136 135-145 mmol/L Potassium 3.8 [...] Level Reviewed date:02/08/2024 08:35:16 AM Interpretation: Performing Lab:[facility] [place], [address] [place] [address] Notes/Report: Albumin Level 2.7 3.5-5.0 g/dL Complete Blood Count no Diff Reviewed date:02/08/2024 08:35:16 AM Interpretation: Performing Lab:[facility] [place], [address] [place] [address] Notes/Report: White Blood Count 9.0 4.8-10.8 X10*3/uL [...] Gel Reviewed date:02/08/2024 08:35:16 AM Interpretation: Performing Lab:[address] [address] Notes/Report: Hold Green Gel See Note Specimen held untested for 24 hours; Call to request Chemistry testing. Complete Blood Count Auto Di ff Reviewed date:05/27/2024 08:42:02 AM Interpretation: Performing Lab:[facility] [place], [address] [place] [address] Notes/Report: White Blood Count 10.9 4.8-10.8 X10*3/uL [...] te Reviewed date:05/27/2024 08:42:02 AM Interpretation: Performing Lab:[address] [address] Notes/Report: Erythrocyte Sedimentation Rate 10 0-15 MM/HR Patients with polycythemia and many hemoglobin abnormalities may have depressed sed rates whereas patients with anemia may have elevated sed rates. Comprehensive Met. Panel Reviewed date:05/27/2024 08:42:02 AM Interpretation: Performing Lab:[address] [address] Notes/Report: Sodium 138 135-145 mmol/L Potassium 4.3 [...] Acid Reviewed date:05/27/2024 08:42:02 AM Interpretation: Performing Lab:[address] [address] Notes/Report: Lactic Acid 1.4 0.5-2.0 mmol/L C Reactive Protein Reviewed date:05/27/2024 08:42:02 AM Interpretation: Performing Lab:[address] [address] Notes/Report: C Reactive Protein 1.01 < or = 0.50 mg/dL Blood Culture (First) Reviewed date:06/07/2024 04:51:50 AM Interpretation: Performing Lab:[address] [address] Notes/Report: Blood Culture (First) No growth after 5 days. Blood Culture (Second) Reviewed date:06/07/2024 04:51:50 AM Interpretation: Performing Lab:[address] [address] Notes/Report: Blood Culture (Second) No growth after 5 days. XR knee RT 4V Reviewed date:05/27/2024 08:42:02 AM Interpretation: Performing Lab: Notes/Report: [address] [address] XRay Report Signed Patient: Zan Encinas MR#: [id number] : 1960 Acct:[id number] Age/Sex: 64 / M ADM Date: 05/26/24 Loc: HO.ED Attending Dr: Ordering Physician: Gt Cruz Date of Service: 05/26/24 Procedure(s): XR knee RT 4V Accession Number(s): [id number] cc: Gt Cruz; Quinton Callahan MD EXAMINATION: XR KNEE, RIGHT CLINICAL INFORMATION: Right stump erythema/pus discharge COMPARISON: 10/01/2023. TECHNIQUE: Four views of the right knee. FINDINGS: There is mild generalized osteopenia. There has been a gzahm-onv-dqjx amputation. There are no permeative changes involving [...] 05/26/24 1532 DD/ 1452 TD/TT: 05/26/24 1510 Manager Printing: [address] [address] XRay Report Signed Patient: Zan Encinas MR#: [id number] : 1960 Acct:[id number] Age/Sex: 64 / M ADM Date: 05/26/24 Loc: HO.ED Attending Dr: Ordering Physician: Gt Cruz Date of Service: 05/26/24 Procedure(s): XR kne e RT 4V Accession Number(s): [id number] cc: Gt Cruz; Quinton Callahan MD EXAMINATION: XR KNEE, RIGHT CLINICAL INFORMATION: Right stump erythema /pus discharge COMPARISON: 10/01/2023. TECHNIQUE: Four views of the ri ght knee. FINDINGS: There is mild generalized osteopenia. There has been a zxmhh-bej-tllw amputation. There are no permeative changes involving [...] 05/26/24 1532 DD/ 1452 TD/TT: 05/26/24 1510 Manager Printing: Complete Blood Count Auto Di ff Reviewed date:05/27/2024 08:42:02 AM Interpretation: Performing Lab:[facility] [place], [address] [place] [address] Notes/Report: White Blood Count 9.2 4.8-10.8 X10*3/uL [...] Panel Reviewed date:05/27/2024 08:42:02 AM Interpretation: Performing Lab:[facility] [place], [address] [place] [address] Notes/Report: Sodium 140 135-145 mmol/L Potassium 3.8 [...] Creatinine Reviewed date:05/27/2024 08:42:02 AM Interpretation: Performing Lab:[address] [address] Notes/Report: Creatinine 0.84 0.5-1.4 mg/dL Creatinine Clr [...] Random Reviewed date:05/28/2024 04:55:44 AM Interpretation: Performing Lab:[address] [address] Notes/Report: Vancomycin Random 13.2 15-20 mcg/mL MR knee RT wo/w con Reviewed date:05/28/2024 04:55:44 AM Interpretation: Performing Lab: Notes/Report: [address] [address] Magnetic Resonance Report Signed Patient: Zan Encinas MR#: [id number] : 1960 Acct:[id number] Age/Sex: 64 / M ADM Date: 05/26/24 Loc: .S3 376-[address]: Luciano Mari MD Ordering Physician: Keith Menendez MD Date of Service: 05/27/24 Procedure(s): MR knee RT wo/w con Accession Number(s): [id number] cc: Quinton Callahan MD; Keith Menendez MD [...] 05/27/24 1626 DD/ 1527 TD/TT: 05/27/24 1549 Manager Printing: [address] [address] Magnetic Resonance Report Signed Patient: Zan Encinas MR#: [id number] : 1960 Acct:[id number] Age/Sex: 64 / M ADM Date: 05/26/24 Loc: [facility] 376-[address]: Alfredo Mari MD Ordering Physician: Keith Menendez MD Date of Service: 05/27/24 Procedure(s): MR green e RT wo/w con Accession Number(s): [id number] cc: Quinton Callahan MD; Keith Menendez MD [...] 05/27/24 1626 DD/ 1527 TD/TT: 05/27/24 1549 Manager Printing: Creatinine Reviewed date:05/28/2024 02:19:09 PM Interpretation: Performing Lab:[address] [address] Notes/Report: Creatinine 0.81 0.5-1.4 mg/dL Creatinine Clr [...] Random Reviewed date:05/30/2024 07:30:54 PM Interpretation: Performing Lab:[address] [address] Notes/Report: Vancomycin Random 13.4 15-20 mcg/mL Hold Lav - Possible Hematolo gy Reviewed date:05/30/2024 07:30:54 PM Interpretation: Performing Lab:[address] [address] Notes/Report: Hold Lav - Possible Hematology SEE NOTE Specimen will be held untested for 8 hours. Call Hematology if testing is desired. Creatinine Reviewed date:05/30/2024 07:30:54 PM Interpretation: Performing Lab:[address] [address] Notes/Report: Creatinine 0.79 0.5-1.4 mg/dL Creatinine Clr [...] ff Reviewed date:07/01/2024 10:06:14 AM Interpretation: Performing Lab:[facility] [place], [address] [place] [address] Notes/Report: White Blood Count 8.9 4.8-10.8 X10*3/uL [...] Creatinine Reviewed date:07/01/2024 10:06:14 AM Interpretation: Performing Lab:[facility] [place], [address] [place] [address] Notes/Report: Creatinine 1.10 0.5-1.4 mg/dL Estimated Glomerular Filt Rate > 60 Chronic Kidney Disease: Estimated GFR < 60 mL/min/1.73m2 Severe Kidney Disease: Estimated GFR < 15 mL/min/1.73m2 Vancomycin Trough Reviewed date:07/01/2024 10:06:14 AM Interpretation: Performing Lab:[facility] [place], [address] [place] [address] Notes/Report: Vancomycin Trough 20.4 10.0-20.0 mcg/mL Reason For Referral No Information Medications Medication SIG (Take, Route, Frequency, Duration) Notes Start Date End Date Status Doxycycline Hyclate 100 MG 1 capsule Ora lly twice a day 07/10/2024 Active Tamsulosin HCl 0.4 MG 2 capsule Orally O nce a day for 90 days Active Breo Ellipta 200-25 MCG/ACT INHALE 1 PUF F BY MOUTH ONCE DAILY Inhalation Active Albuterol Sulfate HFA 108 (90 Base) MCG/ACT INHALE 2 PUFFS BY MOUTH EVERY 4 TO 6 HOURS NEEDED FOR SHORTNESS OF BREATH OR WHEEZING Inhalation Active Eliquis 5 MG 1 Tablet Orally twic e a day Active Gabapentin 400 MG 1 capsule Orally fou r times a day 10/31/2023 Active Vancomycin HCl 10 GM Intravenous Active Gabapentin 300 MG 1 capsule Orally fou r times a day 06/12/2024 Active Metoprolol Succinate ER 25 MG 1 tablet Orally Once a day Active Pantoprazole Sodium 40 MG Take 2 tablets by mouth once daily for 90 Active Nystatin 436894 UNIT/GM 1 application Ex ternally Twice a day 12/21/2023 Active Atorvastatin Calcium 10 MG Take 1 tablet by mouth once daily Active ibuprofen 1 [...] Problem Status W/U Status Risk Notes Problem 802002656 Overweight (E66.3) Active confirmed His body mass index is 29. We discussed diet and nutrition. I recommended aggressive weight loss and sodium restriction. Problem 826908702 Mixed hyperlipidemia (E78.2) Active confirmed A comprehensive laboratory database with a fasting lipid profile will be obtained. He was continued on his currrent meddications. Problem 63893282 Chronic obstructive pulmonary disease, unspecified COPD type (J44.9) Active confirmed He has resumed smoking 5 cigarettes per day. He was counseled about this and made aware of the smoking cessation programs in the area. Problem 56830008 Tobacco dependence (F17.200) Active confirmed I have counseled him about smoking cessation and offered to refer him to smoking cessation programs in the community. He said he would consider this and try to cut down. Problem Left bundle branch block (I44.7) Active confirmed The engineering manager electronics's interpretation of the perfusion test was that the defect in the septum may be due to the bundle branch block. I will discuss this with cardiology. Problem 06511780 Hiatal hernia (K44.9) Active confirmed The symptoms of his esophageal reflux and hiatal hernia well controlled with current medications. No change in his regimen as needed. Problem 103160158 Peripheral arterial disease (I73.9) Active confirmed He is seeing the vascular surgeon eevery 2 weeks. 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 The plan is to fit him for a prosthesis. He denies any ulcers or claudication in the left leg. Problem Hoarseness (81250562) Hoarseness (R49.0) Active confirmed He will be referred to ENT for indirect laryngoscopy. Problem 8764317 Umbilical hernia without obstruction and without gangrene (K42.9) Active confirmed This is asymptomatic and requires no treatment at this time. Problem 384346428 Benign prostatic hyperplasia with lower urinary tract symptoms (N40.1) Active confirmed The tamsulosin was continued today. He will notify me if his symptoms worsen. He has had no retention. He has symptoms of prostatism. Problem 179456277 Acute right-sided low back pain with right-sided sciatica (M54.41) Active confirmed His back pain continues and I have increased the gabapentin. Problem 821090740 Palmer's esophagus determined by endoscopy (K22.70) Active confirmed He is due for an endoscopy and was referred back to his gastroenterolog ist, Dr. Quinton Campos. 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 Problem 68189715749372400 Carpal tunnel syndrome on both sides (G56.03) Active confirmed He has a history of carpal tunnel syndrome treated by Dr. Raphael. He is currently asymptomatic. 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 There has been talk of an above the knee right amputation. This will depend upon the chronicity of the drainage in the infection. Vital Signs Heart Rate 70 /min 07/10/2024 Temperature 98.6 degrees Fahrenheit 07/10/2024 Blood pressure diastolic 53 mm Hg 07/10/2024 Height 73 in 07/10/2024 Blood pressure systolic 108 mm Hg 07/10/2024 Weight 185 lbs 07/10/2024 BMI 24.41 kg/m2 07/10/2024 Encounters Encounter Location Date Provider Diagnosis Quinton Callahan III, MD [address] [place] [address] [place] [address] 08/27/2023 Quinton Callahan Peripheral arterial disease I73.9 ; Benign prostatic hyperplasia with lower urinary tract symptoms N40.1 ; Palmer's esophagus determined by endoscopy K22.70 ; Chronic obstructive pulmonary disease, unspecified COPD type J44.9 ; Overweight E66.3 ; Tobacco dependence F17.200 and Mixed hyperlipidemia E78.2 Quinton Callahan III, MD [address] [place] [address] [place] [address] 09/19/2023 Quinton Callahan Peripheral arterial disease I73.9 ; Open wound T14.8XXA ; Benign prostatic hyperplasia with lower urinary tract symptoms N40.1 ; Palmer's esophagus determined by endoscopy K22.70 ; Chronic obstructive pulmonary disease, unspecified COPD type J44.9 ; Tobacco dependence F17.200 and Mixed hyperlipidemia E78.2 Quinton Callahan III, MD [address] [place] [address] [place] [address] 09/24/2023 Quinton Callahan Peripheral arterial disease I73.9 ; Edema of right lower extremity R60.0 ; Palmer's esophagus determined by endoscopy K22.70 ; Benign prostatic hyperplasia with lower urinary tract symptoms N40.1 ; Overweight E66.3 and Tobacco dependence F17.200 Quinton Callahan III, MD [address] [place] [address] [place] [address] 10/15/2023 Quinton Callahan Peripheral arterial disease I73.9 ; Palmer's esophagus determined by endoscopy K22.70 ; Chronic obstructive pulmonary disease, unspecified COPD type J44.9 ; Tobacco dependence F17.200 and Mixed hyperlipidemia E78.2 Quinton Callahan III, MD [address] [place] [address] [place] [address] 10/31/2023 Quinton Callahan Peripheral arterial disease I73.9 ; Benign prostatic hyperplasia with lower urinary tract symptoms N40.1 ; Palmer's esophagus determined by endoscopy K22.70 ; Chronic obstructive pulmonary disease, unspecified COPD type J44.9 ; Tobacco dependence F17.200 ; Mixed hyperlipidemia E78.2 ; Acute right-sided low back pain with right-sided sciatica M54.41 and Overweight E66.3 Quinton Callahan III, MD [address] [place] [address] [place] [address] 12/28/2023 Quinton Callahan Peripheral arterial disease I73.9 ; Chronic obstructive pulmonary disease, unspecified COPD type J44.9 ; Benign prostatic hyperplasia with lower urinary tract symptoms N40.1 ; Palmer's esophagus determined by endoscopy K22.70 ; Hiatal hernia K44.9 ; Overweight E66.3 ; Tobacco dependence F17.200 and Mixed hyperlipidemia E78.2 Quinton Callahan III, MD [address] [place] [address] [place] [address] 06/12/2024 Quinton Callahan Peripheral arterial disease I73.9 ; Benign prostatic hyperplasia with lower urinary tract symptoms N40.1 ; Palmer's esophagus determined by endoscopy K22.70 ; Chronic obstructive pulmonary disease, unspecified COPD type J44.9 ; Overweight E66.3 ; Tobacco dependence F17.200 and Mixed hyperlipidemia E78.2 Quinton Callahan III, MD [address] [place] [address] [place] [address] 07/10/2024 Quinton Callahan Peripheral arterial disease I73.9 [...] Tobacco dependence F17.200 Quinton Callahan III, MD [address] [place] [address] [address] [place] [address] 11/27/2023 Quinton Callahan III, MD [address] [place] [address] [place] [address] 12/18/2023 Quinton Callahan III, MD [address] [place] [address] [place] [address] 12/21/2023 Quinton Callahan III, MD [address] [place] [address] [place] [address] 12/21/2023 Quinton Callahan III, MD [address] [place] [address] [place] [address] 02/12/2024 Quinton Callahan III, MD [address] [place] [address] [place] [address] 03/04/2024 Quinton Callahan III, MD [address] [place] [address] [place] [address] 05/02/2024 Quinton Callahan III, MD [address] [place] [address] [place] [address] 05/02/2024 Quinton Callahan Peripheral arterial disease I73.[address] [id number] 06/02/2024 Quinton Callahan III, MD [address] [place] [address] [place] [address] 07/23/2024 Quinton Callahan Assessments Encounter Date Diagnosis (ICD Code) Assessment Notes Treat ment Notes Treatment Clinical Notes 08/27/2023 Peripheral arterial [...] and pink but swollen with edema extending snf up the right leg which is also [...] endoscopy and was referred back to his sheet layer, Dr. Quinton Campos. 10/31/2023 Peripheral arterial disease [...] retention. He has symptoms of prostatism. 07/10/2024 Peripheral arterial disease (ICD-10 - I73.9) He is seeing the vascular surgeon rita 2 weeks. 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 The plan is to fit him for a prosthesis. He denies any ulcers or claudication in the left leg. 07/10/2024 Chronic osteomyeliti s of right tibia with draining sinus (ICD-10 - M86.461) He is under the care of infectious disease on oral doxycycline long-term. There has been talk of an above the knee right amputation. This will depend upon the chronicity of the drainage in the infection. 05/02/2024 Peripheral arterial disease (ICD-10 - I73.9) 08/27/2023 Palmer's esophagus determined by endoscopy (ICD-10 - K22.70) He is due for an endoscopy and was referred back to his sheet layer, Dr. Quinton Campos. 09/19/2023 Benign prostatic hyperplasia with lower urinary tract symptoms (ICD-10 - N40.1) The tamsulosin was continued today. He will notify me if his symptoms worsen. He has had no retention. He has symptoms of prostatism. 09/24/2023 Palmer's esophagus determined by endoscopy (ICD-10 - K22.70) He is due for an endoscopy and was referred back to his sheet layer, Dr. Quinton Campos. 10/15/2023 Chronic obstructive pulmonary disease, unspecified COPD type (ICD-10 - J44.9) He has resumed smoking 5 cigarettes per day. He was counseled about this and made aware of the smoking cessation programs in the area. 10/31/2023 Palmer's esophagus determined by endoscopy (ICD-10 - K22.70) He is due for an endoscopy and was referred back to his sheet layer, Dr. Quinton Campos. 12/28/2023 Benign prostatic hyperplasia with lower urinary tract symptoms (ICD-10 - N40.1) The tamsulosin was continued today. He will notify me if his symptoms worsen. He has had no retention. He has symptoms of prostatism. 06/12/2024 Palmer's esophagus determined by endoscopy (ICD-10 - K22.70) He is due for an endoscopy and was referred back to his sheet layer, Dr. Quinton Campos. 07/10/2024 Benign prostatic hyperplasia with lower urinary tract symptoms (ICD-10 - N40.1) The tamsulosin was continued today. He will notify me if his symptoms worsen. He has had no retention. He has symptoms of prostatism. 08/27/2023 Chronic obstructive pulmonary disease, unspecified COPD type (ICD-10 - J44.9) He has resumed smoking 5 cigarettes per day. He was counseled about this and made aware of the smoking cessation programs in the area. 09/19/2023 Palmer's esophagus determined by endoscopy (ICD-10 - K22.70) He is due for an endoscopy and was referred back to his sheet layer, Dr. Quinton Campos. 09/24/2023 Benign prostatic hyperplasia [...] endoscopy and was referred back to his sheet layer, Dr. Quinton Campos. 06/12/2024 Chronic obstructive pulmonary disease, unspecified COPD type (ICD-10 - J44.9) He has resumed smoking 5 cigarettes per day. He was counseled about this and made aware of the smoking cessation programs in the area. 07/10/2024 Palmer's esophagus determined by endoscopy (ICD-10 - K22.70) He is due for an endoscopy and was referred back to his sheet layer, Dr. Quinton Campos. 08/27/2023 Overweight (ICD-10 - E66.3) His body [...] try to cut down. 12/28/2023 Hiatal hernia (ICD-1 0 - K44.9) The symptoms of his esophageal reflux and hiatal hernia well controlled with current medications. No change in his regimen as needed. 06/12/2024 Overweight (ICD-10 - E66.3) His body mass index is 29. We discussed diet and nutrition. I recommended aggressive weight loss and sodium restriction. 07/10/2024 Chronic obstructive pulmonary disease, unspecified COPD type (ICD-10 - J44.9) He has resumed smoking 5 cigarettes per day. He was counseled about this and made aware of the smoking cessation programs in the area. 08/27/2023 Tobacco dependence (ICD-10 - F17.200) I [...] this and try to cut down. 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 08/27/2023 Mixed hyperlipidemia (ICD-10 - E78.2) A comprehensive laboratory database with a fasting lipid profile will be obtained. He was continued on his currrent meddications. 09/19/2023 Mixed hyperlipidemia (ICD-10 - E78.2) A comprehensive laboratory database with a fasting lipid profile will be obtained. He was continued on his currrent meddications. 10/31/2023 Acute right-sided lo w back pain with right-sided sciatica (ICD-10 - [...] was continued on his currrent meddications. 07/10/2024 Hiatal hernia (ICD-1 0 - K44.9) The symptoms of his esophageal reflux and hiatal hernia well controlled with current medications. No change in his regimen as needed. 10/31/2023 Overweight (ICD-10 - E66.3) His body [...] Provider Name:Quinton Callahan, 09/09/2024 11:30:00 AM, [address] [facility] [address], [place], [address], Provider Name:Quinton Callahan, 10/15/2024 11:00:00 AM, [address] [place] [address] [address], [place], [address], Insurance Providers Payer Name Payer Address Payer Phone Subscriber Number Group Number Insured Name Patient Relationship to Insured Coverage Start Date Coverage End Date [employer] [address] [place] [phone] [id number] Zan Olivo Self - patient is the insured 4 MEDICARE NGS [address] [place] [address] [id number] Zan Olivo Self - patient is the [...] right leg Surgical History Surgery Date(Month/Year) Right hutzp-rzo-avcl amputation 4 arteriogram right lower extremity 05/2019 upper endoscopy, [facility], Dr. Quinton Campos, Palmer's esophagus 2014 upper endoscopy and colonosc opy, [facility], Dr. 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
--- OUTSIDE RECORDS SUMMARY | 2024-08-26 14:03 | XMS_ITS | Data Portability ---
Author Organization 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 Name Role Phone [facility] OTHER KEON HEREDIA Primary Care Provider [phone] Assessment Encounter Date Assessment Date Assessment LastModified [...] Organization Details Recorded Time Blood in urine 54825182 Active [address], [address], [place], [address], [facility] 4 10:17:42 Benign prostatic hyperplasia 536095663 Active [address], [address], [place], [address], [facility] 4 10:17:40 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 [address], [address], [place], [address], [facility] 4 10:18:23 Limb ischemia 0393569386537 5 Active [address], [address], [place], [address], [facility] 4 10:19:49 Peripheral arterial disease 609247656 Active [address], [address], [place], [address], [facility] 4 10:21:45 Chronic obstructive pulmonary disease 78605109 Active [address], [address], [place], [address], [facility] 4 10:22:55 Gastroesoph ageal reflux disease 618630800 Active [address], [address], [place], [address], [facility] 4 10:23:11 Smoker 05137589 Active [address], [address], [place], [address], [facility] 4 10:23:08 Essential hypertensio n 58446977 Active [address], [address], [place], [address], [facility] 4 10:25:41 Hyperlipide angela 08856256 Active 2023 Yvonne Belcher [address] [facility], [address], [place], [address], [facility] 4 10:49:02 Peripheral vascular disease 400074465 Active 2023 Yvonne Belcher [address] [facility], [address], [place], [address], [facility] 4 10:49:07 Thrombosis of splenic artery 0847200302120 9106 Active 2023 Yvonne Belcher [address] [facility], [address], [place], [address], [facility] 4 10:49:17 Left bundle branch block 28249415 Active 2023 Yvonne Belcher [address] [facility], [address], [place], [address], [facility] 4 10:49:21 Palmer's esophagus 984048652 Active 2023 Yvonne Belcher [address] [facility], [address], [place], [address], [facility] 4 10:50:44 Problem Notes None recorded. 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 02/11/2024 Information not available 02/11/2024 Do You Have An Out Of Hospital DNR? No Information not available 02/11/2024 How Much Tobacco Do You Smoke? 0.5 PPD Information not available 02/11/2024 Has Tobacco Cessation Counseling Been Provided? Yes Information not available 02/11/2024 On What Date Was Tobacco Cessation Counseling Provided? 02/11/2024 Information not available 02/11/2024 How Many Years Have You Smoked Tobacco? 50 Information not available 02/11/2024 Have You Used IV Drugs? No Information not available 02/11/2024 Sex: Unknown Functional Status Question Answer Note LastModified by Organizat ion Details LastModified Time Do you use any illicit or recreational drugs? Yes Information not available 02/11/2024 Do you or have you ever used any other forms of tobacco or nicotine? No Information not available 02/11/2024 Mental Status None recorded. Family History Relationship [...] (COVID-19) vaccine, UNSPECIFIED 06/25/2020 completed [facility] 02/11/2024 12:20:14 SARS-COV-2 (COVID-19) vaccine, UNSPECIFIED 07/27/2020 completed [facility] 02/11/2024 12:20:24 Past Encounters Encounter ID Performer Location Encounter Start Date Encounter Closed Date Diagnosis/Indication Diagnosis SNOMED-CT Code Diagnosis ICD10 Code Diagnosis Note [id number] SAMANTHA CONKLIN AT [address] [address] 02/10/2024 10:12:50 02/11/2024 14:36:04 Limb ischemia 4472575671 9105 I99.8 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 s/p R SFA - bk popliteal bypass with vein ([place], 07/2023)con tinue oxycodone 10 mg TID PRNgabapen tin 400 mg QID PRN (odd, would make scheduled) monitor pain controlPT/ OT eval and treatfollo w up with surgeon in 2 weeksshrin ker to be placed once healed- add abd and celeste daily due to bleeding Peripheral arterial insufficiency 7232155880 41734 I73.9 see aboveASA 81 mg dailyfollo wed by vascular Benign pro static hyperplasia 309425563 N40.0 continue flomax 0.8 mg qhsmonitor for outflow issues Gastroesop hageal reflux disease 135616723 K21.9 pantoprazo le 80 mg dailyconsi lia reduction if toleratesm onitor reflux Blood in urine 34377511 R31.9 had inpatientm onitor for clearing Chronic ob structive pulmonary disease 93628598 J44.9 albuterol PRNincruse dailywixel a BIDmonitor resp status Essential hypertension 87304219 I10 assumed as pt is on metoprolol 25 mg daily but no documented [facility] Constipation 41629541 K5 9.00 add colace 100 mg BIDmonitor for improvemen t [id number] Iveth Diaz MD [facility] AT [address] [address] 02/11/2024 15:43:03 02/12/2024 15:32:16 Limb ischemia 9936297744 9105 I99.8 Will change oxycodone to 10 [...] with surgeon as planned. Peripheral arterial insufficiency 3079699186 10534 I73.89 Z89.511 As above. Benign pro static hyperplasia 492871767 N40.0 No current sxs.Contin ue tamsulosin 0.8 mg qhsMonitor urinary function Gastroesop hageal reflux disease 968511368 K21.9 No current sxs.Contin ue pantoprazo le 80 mg qdMonitor GI sxs. Blood in urine 34584074 R31.0 Had one episode inpt.Now resolved.M onitor for recurrence . Chronic ob structive pulmonary disease 62738971 J43.8 Resp status good at this time.Liv nue incruse ellipta qd, Wixela 500/50 BID, duonebs BID prn and albuterol MDI 2 puffs q 4 hrs prn.Monito r resp status. Essential hypertension 76856055 I10 In good control since here (HTN is on PCP problem list)Liv nue metoprolol 25 mg qdMonitor BP and labs. Constipation 37508920 K5 9.03 Will add miralax 17 gms qd and continue colace 100 mg BIDUse prn meds if needed.Mon itor bowel function. [id number] Nam CONKLIN AT [address] [address] 02/15/2024 10:31:46 02/18/2024 15:29:05 Postoperative wound cellulitis 328949013 L76.82 exam concerning for cellulitis with increased foul smelling discharges tart doxycyclin e 100mg BID x 10 days, probiotic qd x 14 dayscheck CBC w/diff, BMP ll obtain x-ray R stump r/o osteomonit or for worsening sxs Amputated below knee 299 774698 Z89.519 As above. Limb ischemia 1512790048 9105 I99.8 continue oxycodone to 10 mg q 6 hrs scheduled x 7 days, then 10 mg q 8 hrs scheduled x 7 days then 5 mg q 8 hrs prn.Add oxycodone 10mg q24h prn breakthrou gh paincontin ue APAP 975 mg TID and increase gabapentin to 600 mg TID.Contin ue ASA 81 mg qdF/U with surgeon as planned. [id number] Nam CONKLIN AT [address] [address] 02/19/2024 07:36:20 02/21/2024 12:23:04 Postoperative wound cellulitis 734587610 L76.82 Continue doxycyclin e 100mg BID x 10 days, probiotic qd x 14 dayslabs and x-ray unremarkab lemonitor for resolution Limb ischemia 9981748243 9105 I99.8 continue oxycodone 10 mg q 8 hrs scheduled x 7 days then 5 mg q 8 hrs prn. oxycodone 10mg q24h prn breakthrou gh paincontin ue APAP 975 mg TID and gabapentin to 600 mg qam and afternoon, 900mg qhsContinu e ASA 81 mg qdconsult PMR management of painF/U with surgeon as planned. Amputated below knee 299 879639 Z89.519 As above. [id number] Nam CONKLIN AT [address] [address] 02/22/2024 09:19:49 02/25/2024 15:55:50 Postoperative wound cellulitis 478668286 L76.82 Continue doxycyclin e 100mg BID x 10 days, probiotic qd x 14 dayslabs and x-ray unremarkab lemonitor for resolution Limb ischemia 0088428940 9105 I99.8 continue oxycodone 10 mg q 8 hrs scheduled x 7 days then 5 mg q 8 hrs prn. oxycodone 10mg q24h prn breakthrou gh paincontin ue APAP 975 mg TID and gabapentin to 600 mg qam and afternoon, 900mg qhsContinu e ASA 81 mg qdconsult PMR management of painF/U with surgeon as planned. Amputated below knee 299 612250 Z89.519 As above. [id number] Nam CONKLIN AT [address] [address] 02/25/2024 07:30:39 02/26/2024 13:58:50 Postoperative wound cellulitis 677572528 L76.82 resolvedmo nitor for recurrence Limb ischemia 1636717216 9105 I99.8 continue oxycodone 10 mg q 8 hrs scheduled x 7 days then 5 mg q 8 hrs prn. oxycodone 10mg BID prn breakthrou gh paincontin ue APAP 975 mg TID, INcrease gabapentin to 900 mg qam and afternoon, 900mg qhsContinu e ASA 81 mg qdconsult PMR management of painF/U with surgeon as planned. Amputated below knee 299 371172 Z89.519 As above. [id number] Nam CONKLIN AT [address] [address] 02/28/2024 08:43:00 02/29/2024 10:22:21 Limb ischemia 8015741585 9105 I99.8 continue oxycodone 10 mg q 8 hrs scheduled x 7 days then 5 mg q 8 hrs prn. oxycodone 10mg BID prn breakthrou gh paincontin ue APAP 975 mg TID, gabapentin to 900 mg TIDContinu e ASA 81 mg qdconsult PMR management of painF/U with surgeon as planned. Amputated below knee 299 487624 Z89.519 As above. [id number] MD RUBIN Enciso AT [address] [address] 03/03/2024 11:24:29 03/27/2024 10:48:50 Limb ischemia 6686574549 9105 I99.8 s/p amputation cleared for discharge with services and ortho f/u in placedisch arged on oxycodone 5 mg q 8 prn pain #23 tablets given at time of dischargep atient will need appointmen t with PCP for f/u discussed with nursing to schedule prior to discharge Amputated below knee 299 739566 Z89.519 As above. Health Concerns Section Related Observation LastModified by Organization Detai ls LastModified Time None Recorded Concern Status LastModified by Organization Details LastModified Time None Recorded Advance Directives Directive Y: Payers Insurance Date Sequence Insurance Name Policy Number Policy Matute Covered Member ID Matute Member ID Guarantor Name 03/27/2024 1 [employer] (MEDICARE REPLACEMENT/ ADVANTAGE - PPO) [id number] Zan Encinas [id number] Zan Encinas Notes Date Note Type Note [...] f/t/h occlusion of bypass now s/p R SAP DATA ANALYST-AT bypass w ePTFE w/ patch angioplasties ([place] 12/01). [facility] [address] [place] [address], [address], [place], [address], [facility] 02/19/2024 09:56:01 02/22/2024 text/html This is a [...] f/t/h occlusion of bypass now s/p R SAP DATA ANALYST-AT bypass w ePTFE w/ patch angioplasties ([place] 12/01). [facility] [address] [facility], [address], [place], [address], [facility] 02/22/2024 11:16:10 02/25/2024 text/html This is a 63 yo man who is being seen for acute rounding visit Patient doing well todayPain controlled with oxycodone. Gabapentin increased last week at f/u vascular with IMprovement. Reported increased pain over the weekend with 1x dose oxycodone 10mg.Actively participating in therapyself-propelling around unit in w/cPMR consulted Patient seen sitting in room in bed in [facility]. He tells me for the most [...] f/t/h occlusion of bypass now s/p R SAP DATA ANALYST-AT bypass w ePTFE w/ patch angioplasties ([place] 12/01). [facility] [address] [facility], [address], [place], [address], [facility] 02/25/2024 11:08:05 02/28/2024 text/html This is a 63 yo man who is being seen for acute rounding visit Patient had f/u vascular on 02/25recs to continue with daily dressing changes noted with small open area on medial aspectNo wire coiler machine operator or prosthesis yet. The site needs to be completely healed first. Can increase gabapentin 900mg TID and decrease oxycodone.f/u 03/11/24 Patient seen lying in bed with radar repairer doing dressing change. He reports improvement in [...] f/t/h occlusion of bypass now s/p R SAP DATA ANALYST-AT bypass w ePTFE w/ patch angioplasties ([place] 12/01). [facility] [address] [facility], [address], [place], [address], [facility] 02/28/2024 12:14:07 03/03/2024 text/html Patient is a [...] f/u in place Garrett Fletcher MD [address] [facility], [address], [place], [address], [facility] 03/03/2024 11:33:58
== END 2024-08-26 13:26 | disposition home or self-care (01) ==
LOC: HO.HVS 13:02
PROVIDERS: PCP Internal Medicine Medical Oncology; Visit Provider Physician Assistant Surgical
DX: T87.89 Other complications of amputation stump (principal)
CPT/HCPCS: 99214

== ENCOUNTER → 2024-08-26 13:02 | Outpatient (BNVA) | payer MEDICARE, SELFPAY | PROVIDERS: PCP Internal Medicine Medical Oncology; Visit Provider Physician Assistant Surgical | DX: S88.111D Complete traumatic amputation at level between knee and ankle, right lower leg, subsequent encounter (principal); Z98.890 Other specified postprocedural states | CPT/HCPCS: 99212 ==

== ENCOUNTER 2024-09-01 13:34 | Outpatient (AMB) | payer MEDICARE, SELFPAY ==
--- OUTSIDE RECORDS SUMMARY | 2023-08-14 06:30 | XMS_ITS ---
Author Organization [facility] Address [address] [place] [address] Care Team Providers Care Pastry Baker Name Role Phone Quinton Callahan MD Primary Care Provider Unavailab Quinton Alvarez [phone] REASON FOR VISIT Patient presents today for EGD, NUGENT'S ESOPHAGUS Encounters Encounter Location Date Provider Diagnosis [facility] [address] [place] [address] 08/14/2023 Quinton Campos Plan Of Treatment No Information Progress Notes * SHAUNA HERNANDEZHDOB:1960 (64 yo M)Acc No.[id number]:08/14/2023 Progress Notes Patient: JUAN FRANCISCO TONG Provider: Angeles Campos MD :1960 A ge:63 Y S ex:Male Date:08/14/2023 Address:[address] [place] [address] [place] [facility] Pcp:Quinton Callahan MD Subjective: * Chief Complaints: [...] Pending * Provider: Angeles Campos MD Date: 08/14/2023 Generated for Printi ng/Fayuryg/eTransmitting on: 09/01/2024 02:02 PM EDT
--- NOTE | 2024-09-01 13:40 | A.OFFVIS_ITS ---
Vital Signs 3 09/01/24 13:45 Pulse 54 Pulse Source Pulse Oximeter Pulse Oximetry (%) 98 Oxygen Delivery Method Room Air Intake Visit Reasons: Ostemylite Allergies No Known Allergies Allergy (Verified 09/01/24 13:45) HPI HPI Ostemylite: Details: He has had IV Vancomycin and then po Doxycycline and has five days left. He still has some light yellow drainage from mid pole of incision at times. He has no fever or chills. [facility] Medical History Osteomyelitis Krish angina Left bundle branch block Bakers cyst Nicotine dependence, cigarettes, uncomplicated Arthritis BPH (benign prostatic hyperplasia) Elevated cholesterol Complex regional pain syndrome i of right lower limb S/P angiogram of extremity (07/18/23) Atrial fibrillation History of Palmer's esophagus Splenic vein thrombosis History of femoral angiogram GERD (gastroesophageal reflux disease) COPD (chronic obstructive pulmonary disease) Peripheral arterial disease Surgical History History of tonsillectomy Hx of oral surgery Hx of tracheostomy History of esophagogastroduodenoscopy (EGD) H/O colonoscopy Social History Household Members: None Household Members Other:: Son, son girlfriend, grandbaby Housing: House Housing Other:: 3 stairs to climb Are you a primary career development coordinator/teacher to a significant other at home: No Do you presently have visiting nurse or other home services: Yes Comment: Dr Knott made aware of absent pulse and sensation in right foot Patient Tobacco Use Status: Current everyday Tobacco user Tobacco use type: Cigarette Cigarette Packs Per Day: 0.5 Cigarettes Per Day: 10 Years Smoked: 50 e-Cigarette/Vaping Use: Currently Using Second Hand Smoke Exposure: No Substance Use Type: Marijuana service: No Review of Systems Const All systems reviewed & are unremarkable except as noted in HPI and below Physical Exam Vital Signs: Last Vital Signs Pulse 54 09/01/24 13:45 Pulse Ox 98 09/01/24 13:45 Oxygen Delivery Method Room Air 09/01/24 13:45 Const General: cooperative Orientation/consciousness: patient oriented x3 HEENT Head: Yes normal to inspection Mouth: Normal oral and palatal mucosa present Eyes General: appearance normal, both eyes and all related structures Pupils: Equal, round and reactive pupils present Resp Effort & Inspection: normal respiratory effort Cardio Rate: regular rate Rhythm: regular rhythm GI Palpation (GI): Soft to palpation and nontender General: Yes no CVA tenderness Back/Spine/Pelvis Back: no CVA tenderness Skin General skin exam: no rashes or lesions noted Neuro General: patient oriented x3 Cranial nerves: Yes CN's II-XII intact bilaterally and Yes Equal, round and reactive pupils present Extrem Other: Psych Appearance: grossly normal Assessment & Plan Assessment & Plan (1) Osteomyelitis: Comment: He has nearly healed area OM Code(s): M86.9 - Osteomyelitis, unspecified Category: Medical Plan: Finish antibiotics. If hot or red go to ER. Otherwise see Vascular. He is aware may recur. Coding Level of Care Code Est Pt Level 3 (12234) Diagnoses Osteomyelitis M86.9
[2024-09-01 13:45] VITALS: PULSE 54; O2SAT 98
--- OUTSIDE RECORDS SUMMARY | 2024-09-01 14:03 | XMS_ITS | Patient Health Record ---
Author Organization Quinton Callahan III, MD Address [address] [place] [address] Care Team Providers Care Deburring Technician Name Role Phone Quinton Callahan Primary Care Provider [phone] Allergies Allergen (clinical drug ingredient) Drug/Non Drug Allergy documented on EMR Reaction Allergy Type Onset Date Status No Known Drug Allergy Unknown Drug Allergy Active Results Component Value Reference Range Notes Routine Culture Reviewed date:09/30/2023 06:32:33 AM Interpretation: Performing Lab:[facility], [address] [place] [address] Notes/Report: Routine Culture No growth after 2 [...] stain Reviewed date:09/30/2023 06:32:33 AM Interpretation: Performing Lab:[facility], [address] [place] [address] Notes/Report: Gram stain Gram stain results: Gram stain No polys Gram stain 1+ epithelial cells Gram stain No organisms seen CT chest wo con Reviewed date:11/15/2023 07:43:48 PM Interpretation: Performing Lab: Notes/Report: [address] [address] [address] Scan Report Signed with Addenda Patient: Zan Encinas MR#: [id number] : 1960 Acct:[id number] Age/Sex: 63 / M ADM Date: 09/26/23 Loc: HO.CT Attending Dr: Aleksandra Archuleta NP Ordering Physician: Aleksandra Archuleta NP Date of Service: 09/26/23 Procedure(s): CT chest wo IV con Accession Number(s): [id number] cc: Quinton Callahan MD; Aleksandra Archuleta NP [...] called to the ordering clinician by a [facility] Physician Storekeeper Steward. Electronically signed by: Stephanie Courtney MD 11/05/2023 06:52 PM EDT RP Dictated By: Stephanie Courtney MD Signed By: <Electronically signed by Stephanie Courtney MD in OV> 11/05/23 1852 DD/ 0733 TD/TT: 09/26/23 0758 Coat Room Attendant: [address] [address] [address] Scan Report Signed with Addenda Patient: Zan Encinas MR#: [id number] : 1960 Acct:[id number] Age/Sex: 63 / M ADM Date: 09/26/23 Loc: .CT Attending Dr: Apolonia Archuleta NP Ordering Physician: Aleksandra Archuleta NP Date of Service: 09/26/23 Procedure(s): CT tory st wo IV con Accession Number(s): [id number] cc: Quinton Callahan MD; Aleksandra Archuleta NP [...] called to the ordering clinician by a [facility] Phys[facility] Storekeeper Steward. Electronically ivania d by: Stephanie Courtney MD 11/05/2023 06:52 PM EDT RP Dictated By: Stephanie Courtney MD Signed By: <Electronically signed by Stephanie Courtney MD in OV> 11/05/23 185 DD/ 2 TD/TT: 09/26/23757 Coat Room Attendant: Complete Blood Count Auto Di ff Reviewed date:10/02/2023 07:28:20 AM Interpretation: Performing Lab:[facility], [address] [place] [phone] Notes/Report: White Blood Count 11.0 4.8-10.8 X10*3/uL [...] te Reviewed date:10/02/2023 07:28:20 AM Interpretation: Performing Lab:[facility], [address] [place] [address] Notes/Report: Erythrocyte Sedimentation Rate 2 0-15 MM/HR Patients with polycythemia and many hemoglobin abnormalities may have depressed sed rates whereas patients with anemia may have elevated sed rates. Prothrombin Time INR Reviewed date:10/02/2023 07:28:20 AM Interpretation: Performing Lab:[facility], [address] [place] [address] Notes/Report: Prothrombin Time 11.2 11.1-13.3 SEC INTERNATIONAL [...] Time Reviewed date:10/02/2023 07:28:20 AM Interpretation: Performing Lab:[facility], [address] [place] [phone] Notes/Report: Partial Thromboplastin Time 29.0 26.0-36.8 SEC For information regarding the monitoring of direct thrombin inhibitors, please refer to Pharmacy. Comprehensive Met. Panel Reviewed date:10/02/2023 07:28:20 AM Interpretation: Performing Lab:[facility], [address] [place] [phone] Notes/Report: Sodium 141 135-145 mmol/L Potassium 3.9 [...] Glomerular Filt Rate > 60 NOTE: For -Prydeinig individuals, multiply the result by 1.210. Chronic [...] Protein Reviewed date:10/02/2023 07:28:20 AM Interpretation: Performing Lab:[facility], [address] [place] [phone] Notes/Report: C Reactive Protein < 0.04 < or = 0.50 mg/dL US venous duplex LE RT Reviewed date:10/02/2023 07:28:20 AM Interpretation: Performing Lab: Notes/Report: [address] [address] Ultrasound Report Signed Patient: Zan Encinas MR#: [id number] : 1960 Acct:[id number] Age/Sex: 63 / M ADM Date: 10/01/23 Loc: HO.ED Attending Dr: Ordering Physician: Gt Cruz Date of Service: 10/01/23 Procedure(s): US venous duplex LE RT Accession Number(s): [id number] cc: Gt Cruz; Quinton Callahan MD EXAMINATION: [...] MD in OV> 10/01/231949 DD/ 43 TD/TT: Coat Room Attendant: [address] [address] Ultrasound Report Signed Patient: Zan Encinas MR#: [id number] : 1960 Acct:[id number] Age/Sex: 63 / M ADM Date: 10/01/23 Loc: .ED Attending Dr: Ordering Physician: Gt Cruz Date of Service: 10/01/23 Procedure(s): US lazaro ous duplex LE RT Accession Number(s): [id number] cc: Gt Cruz; Quinton Callahan MD EXAMINATION: [...] MD in OV> 10/01/231949 DD/ 43 TD/TT: Airport Traffic Controller ist: JOE XR tibia fibula RT 2V Reviewed date:10/02/2023 07:28:20 AM Interpretation: Performing Lab: Notes/Report: [address] [address] XRay Report Signed Patient: Zan Encinas MR#: [id number] : 1960 Acct:[id number] Age/Sex: 63 / M ADM Date: 10/01/23 Loc: HO.ED Attending Dr: Ordering Physician: Gt Cruz Date of Service: 10/01/23 Procedure(s): XR tibia fibula RT 2V Accession Number(s): [id number] cc: Gt Cruz; Quinton Callahan MD EXAMINATION: [...] MD in OV> 10/01/231848 DD/ 58 TD/TT: Coat Room Attendant: JOE [address] [address] XRay Report Signed Patient: Zan Encinas MR#: [id number] : 1960 Acct:[id number] Age/Sex: 63 / M ADM Date: 10/01/23 Loc: HO.ED Attending Dr: Ordering Physician: Gt Cruz Date of Service: 10/01/23 Procedure(s): XR tib ia fibula RT 2V Accession Number(s): [id number] cc: Gt Cruz; Quinton Callahan MD EXAMINATION: XR foot RT 2V, XR tibia fibula RT 2V INDICATION: redness. osteo? COMPARISON: No perti nent prior studies are currently available for comparison. TECHNIQUE: 2 views t he right tibia and fibula and 3 views of the right foot FINDINGS: Vascular surgical clips are seen. Bones are normal anatomic alignment with no ac [place] fracture or dislocation. No bony destructive lesions. [...] in OV> 10/01/23 184 DD/ 58 TD/TT: Airport Traffic Controller ist: MO XR foot RT 2V Reviewed date:10/02/2023 07:28:20 AM Interpretation: Performing Lab: Notes/Report: [address] [address] XRay Report Signed Patient: Zan Encinas MR#: [id number] : 1960 Acct:[id number] Age/Sex: 63 / M ADM Date: 10/01/23 Loc: HO.ED Attending Dr: Ordering Physician: Gt Cruz Date of Service: 10/01/23 Procedure(s): XR foot RT 2V Accession Number(s): [id number] cc: Gt Cruz; Quinton Callahan MD EXAMINATION: [...] in OV> 10/01/23 1849 DD/ 58 TD/TT: Coat Room Attendant: [place] [address] XRay Report Signed Patient: Zan Encinas MR#: [id number] : 1960 Acct:[id number] Age/Sex: 63 / M ADM Date: 10/01/23 Loc: .ED Attending Dr: Ordering Physician: Gt Cruz Date of Service: 10/01/23 Procedure(s): XR chito t RT 2V Accession Number(s): [id number] cc: Gt Cruz; Quinton Callahan MD EXAMINATION: XR foot RT 2V, XR tibia fibula RT 2V INDICATION: redness. osteo? COMPARISON: No perti nent prior studies are currently available for comparison. TECHNIQUE: 2 views t he right tibia and fibula and 3 views of the right foot FINDINGS: Vascular surgical clips are seen. Bones are normal anatomic alignment with no ac [place] fracture or dislocation. No bony destructive lesions. [...] in OV> 10/01/23 1849 DD/ 58 TD/TT: Coat Room Attendant: MO Lactic Acid Reviewed date:10/02/2023 07:28:20 AM Interpretation: Performing Lab:[facility], [address] [place] [phone] Notes/Report: Lactic Acid 0.7 0.5-2.0 mmol/L Blood Culture (First) Reviewed date:10/14/2023 07:03:40 AM Interpretation: Performing Lab:[facility], [address] [place] [phone] Notes/Report: Blood Culture (First) No growth after 5 days. Blood Culture (Second) Reviewed date:10/14/2023 07:03:40 AM Interpretation: Performing Lab:[facility], [address] [place] [phone] Notes/Report: Blood Culture (Second) No growth after 5 days. Complete Blood Count no Diff Reviewed date:10/04/2023 06:10:55 AM Interpretation: Performing Lab:[facility], [address] [place] [phone] Notes/Report: White Blood Count 6.5 4.8-10.8 X10*3/uL [...] Panel Reviewed date:10/04/2023 06:10:55 AM Interpretation: Performing Lab:[facility], [address] [place] [phone] Notes/Report: Sodium 140 135-145 mmol/L Potassium 4.0 [...] Glomerular Filt Rate > 60 NOTE: For -Prydeinig individuals, multiply the result by 1.210. Chronic [...] g Reviewed date:10/04/2023 06:10:55 AM Interpretation: Performing Lab:[facility], [address] [place] [phone] Notes/Report: Glucose Fasting 100 60-99 mg/dL A fasting glucose from 100-125 mg/dl is considered impaired (pre-diabetes). Vancomycin Random Reviewed date:10/04/2023 06:10:55 AM Interpretation: Performing Lab:[facility], [address] [place] [phone] Notes/Report: Vancomycin Random 9.5 15-20 mcg/mL US arterial duplex LE RT Reviewed date:11/15/2023 07:43:48 PM Interpretation: Performing Lab: Notes/Report: [facility] [address] [place] [address] Ultrasound Report Signed Patient: Zan Encinas MR#: [id number] : 1960 Acct:[id number] Age/Sex: 63 / M ADM Date: 11/01/23 Loc: HO.US Attending Dr: Bimal Knott MD Ordering Physician: Bimal Knott MD Date of Service: 11/01/23 Procedure(s): US arterial duplex LE RT Accession Number(s): [id number] cc: Quinton Callahan MD; Bimal Knott MD [...] Popliteal: Occluded Tibial: Occluded Distal femoral to rxvqc-als-fatn bypass graft: Occluded There is a large complex multiseptated cystic collection seen in the proximal calf US/US arterial duplex LE RT IMPRESSION: 1. There is occlusion of the distal SFA and popliteal artery with a distal femoral to pphdu-nuc-ubqx bypass graft which is also occluded. 2. There is a large multiseptated cystic collection in the proximal calf. Electronically signed by: Frankie Jimenez MD 11/01/2023 04:34 PM EDT Dictated By: Frankie Jimenez MD Signed By: <Electronically signed by Frankie Jimenez MD in OV> 11/01/23 1634 DD/ 1313 TD/TT: 11/01/23 1400 Coat Room Attendant: AMARA [place] [address] Ultrasound Report Signed Patient: Zan Encinas MR#: [id number] : 1960 Acct:[id number] Age/Sex: 63 / M ADM Date: 11/01/23 Loc: HO.US Attending Dr: Bimal Knott MD Ordering Physician: Bimal Knott MD Date of Service: 11/01/23 Procedure(s): US arterial duplex LE RT Accession Number(s): [id number] cc: Quinton Callahan MD; Bimal Knott MD [...] Popliteal: Occluded Tibial: Occluded Distal femoral to cowyl-uqw-iuxi bypass graft: Occluded There is a large com plex multiseptated cystic collection seen in the proximal calf U S/US arterial duplex LE RT IMPRESSION: 1. There is occlusio n of the distal SFA and popliteal artery with a distal femoral to vssup-alq-kbyi bypass graft which is also occluded. 2. There is a large multiseptated cystic collection in the proximal calf. Electronically ivania d by: Frankie Jimenez MD 11/01/2023 04:34 PM EDT RP Dictated By: Frankie Jimenez MD Signed By: <Electronically signed by Frankie Jimenez MD in OV> 11/01/23 1634 DD/ 1313 TD/TT: 11/01/23 1400 Coat Room Attendant: SS Creatinine GFR POC Reviewed date:11/15/2023 07:43:48 PM Interpretation: Performing Lab:[facility], [address] [place] [address] Notes/Report: [id number] 0.78 >60 0928 HO.[place] Creatinine POC 0.8 0.5-1.4 mg/dL GFR POC > 60 Chronic Kidney Disease: Estimated GFR < 60 mL/min/1.73m2 Severe Kidney Disease: Estimated GFR < 15 mL/min/1.73m2 CT angio abd aorta runoff Reviewed date:11/15/2023 07:43:48 PM Interpretation: Performing Lab: Notes/Report: [address] [address] [address] Scan Report Signed Patient: Zan Encinas MR#: [id number] : 1960 Acct:[id number] Age/Sex: 63 / M ADM Date: 11/09/23 Loc: HO.CT Attending Dr: Bimal Knott MD Ordering Physician: Bimal Knott MD Date of Service: 11/09/23 Procedure(s): CT angio abd aorta runoff Accession Number(s): [id number] cc: Quinton Callahan MD; Bimal Knott MD EXAMINATION: CT ANGIOGRAPHY ABDOMEN, PELVIS AND LOWER EXTREMITY RUNOFF WITH CONTRAST CLINICAL INFORMATION: I73.9 - Peripheral vascular disease, unspecified COMPARISON: CTA runoff June 28, 2023 TECHNIQUE: Initial noncontrast localizing talent scout images were obtained. Timing boluses at the [...] Femoris: Patent. Popliteal Artery: Popliteal stent occluded. [place] popliteal artery below stent occluded for a [...] artery stent. 2. Below the stent, the [place] popliteal is occluded for a short segment [...] 11/13/23 1517 DD/ 0926 TD/TT: 11/09/23 1013 Coat Room Attendant: [place] [address] CT Scan Report Signed Patient: Zan Encinas MR#: [id number] : 1960 Acct:[id number] Age/Sex: 63 / M ADM Date: 11/09/23 Loc: HO.CT Attending Dr: Bimal Knott MD Ordering Physician: Bimal Knott MD Date of Service: 11/09/23 Procedure(s): CT ang io abd aorta runoff Accession Number(s): [id number] cc: Quinton Callahan MD; Bimal Knott MD EXAMINATION: CT ANGIOGRAPHY ABDOM EN, PELVIS AND LOWER EXTREMITY RUNOFF WITH CONTRAST CLINICAL INFORMATION: I73.9 - Peripheral vascular disease, unspecified COMPARISON: CTA runoff June 28, 2023 TECHNIQUE: Initial noncontrast localizing talent scout images were obtained. Timing boluses at the [...] Femoris: Patent. Popliteal Artery: Popliteal stent occluded. [place] popliteal artery below stent occluded for a [...] artery stent. 2. Below the stent, the [place] popliteal is occluded for a short segment [...] 11/13/23 1517 DD/ 0926 TD/TT: 11/09/23 1013 Coat Room Attendant: Complete Blood Count Auto Di ff Reviewed date:11/21/2023 06:36:35 AM Interpretation: Performing Lab:[facility], [address] [place] [address] Notes/Report: White Blood Count 8.4 4.8-10.8 X10*3/uL [...] INR Reviewed date:11/21/2023 06:36:35 AM Interpretation: Performing Lab:[facility], [address] [place] [phone] Notes/Report: Prothrombin Time 10.3 10.9-12.4 SEC INTERNATIONAL [...] Time Reviewed date:11/21/2023 06:36:35 AM Interpretation: Performing Lab:[facility], [address] [place] [phone] Notes/Report: Partial Thromboplastin Time 31.9 26.0-36.8 SEC For information regarding the monitoring of direct thrombin inhibitors, please refer to Pharmacy. Basic Metabolic Panel Reviewed date:11/21/2023 06:36:35 AM Interpretation: Performing Lab:[facility], [address] [place] [phone] Notes/Report: Sodium 143 135-145 mmol/L Potassium 4.5 [...] Glomerular Filt Rate > 60 NOTE: For -Prydeinig individuals, multiply the result by 1.210. Chronic Kidney Disease: Estimated GFR < 60 mL/min/1.73m2 Severe Kidney Disease: Estimated GFR < 15 mL/min/1.73m2 Glucose Random 99 60-115 mg/dL Calcium 9.6 8.4-10.2 mg/dL Cancelled Chem Reviewed date:01/07/2024 01:28:15 PM Interpretation: Performing Lab:[facility], [address] [place] [address] Notes/Report: Cancelled Chem SEE NOTE NO SPECIMEN R ECEIVED FOR BUN AND CREAT US arterial duplex LE RT Reviewed date:01/24/2024 07:41:27 AM Interpretation: Performing Lab: Notes/Report: [facility] [address] [place] [address] Ultrasound Report Signed Patient: Zan Encinas MR#: [id number] : 1960 Acct:[id number] Age/Sex: 63 / M ADM Date: 01/01/24 Loc: .US Attending Dr: Bimal Knott MD Ordering Physician: Sera Saxena PA-C Date of Service: 01/01/24 Procedure(s): US arterial duplex LE RT Accession Number(s): [id number] cc: Quinton Callahan MD; Sera Saxena PA-C [...] by: Coleman Chaidez MD 01/23/2024 01:03 PM [facility] Dictated By: Coleman Chaidez MD Signed By: <Electronically signed by Coleman Chaidez MD in OV> 01/23/24 1303 DD/ 1430 TD/TT: 01/01/24 1517 Coat Room Attendant: [place] [address] Ultrasound Report Signed Patient: Zan Encinas MR#: [id number] : 1960 Acct:[id number] Age/Sex: 63 / M ADM Date: 01/01/24 Loc: . Attending Dr: Bimal Knott MD Ordering Physician: Sera Saxena PA-C Date of Service: 01/01/24 Procedure(s): US arterial duplex LE RT Accession Number(s): [id number] cc: Quinton Callahan MD; Sera Saxena PA-C [...] with a hematoma. Electronically ivania d by: Cloeman Chaidez MD 01/23/2024 01:03 PM [facility] Dictated By: Coleman Chaidez MD Signed By: <Electronically signed by Coleman Chaidez MD in OV> 01/23/24 1303 DD/ 1430 TD/TT: 01/01/24 1517 Coat Room Attendant: Complete Blood Count Auto Di ff Reviewed date:01/07/2024 01:28:15 PM Interpretation: Performing Lab:[facility], [address] [place] [phone] Notes/Report: White Blood Count 8.2 4.8-10.8 X10*3/uL [...] Drip Reviewed date:01/08/2024 08:33:39 AM Interpretation: Performing Lab:[address] [address] Notes/Report: PTT Heparin Drip 33.9 53-77.9 SEC For information regarding the monitoring of heparin therapy, please refer to Pharmacy. Fibrinogen Reviewed date:01/08/2024 08:33:39 AM Interpretation: Performing Lab:[address] [address] Notes/Report: Fibrinogen 465 259-690 MG/DL Blood Urea Nitrogen Reviewed date:01/07/2024 01:28:15 PM Interpretation: Performing Lab:[address] [address] Notes/Report: Blood Urea Nitrogen 16 9-16 mg/dL Creatinine Reviewed date:01/07/2024 01:28:15 PM Interpretation: Performing Lab:[address] [address] Notes/Report: Creatinine 0.81 0.5-1.4 mg/dL Creatinine Clr Calc Pharmacy 99.7 eGFR (calculated from the MDRD study equation) and eCrCl (calculated from the Cockcroft-Gault equation) are based on different parameters and may not yield comparable results. If eCrCl result is absurd, please check patient's height/weight. Estimated Glomerular Filt Rate > 60 NOTE: For -Prydeinig individuals, multiply the result by 1.210. Chronic Kidney Disease: Estimated GFR < 60 mL/min/1.73m2 Severe Kidney Disease: Estimated GFR < 15 mL/min/1.73m2 ACT LR Reviewed date:01/16/2024 08:51:12 AM Interpretation: Performing Lab:[address] [address] Notes/Report: out of range low [id number] HO.[place] 0906 HO.MULVEC Fibrinogen Reviewed date:01/08/2024 08:33:39 AM Interpretation: Performing Lab:[address] [address] Notes/Report: Fibrinogen 445 259-690 MG/DL Complete Blood Count no Diff Reviewed date:01/10/2024 09:47:57 AM Interpretation: Performing Lab:[address] [address] Notes/Report: White Blood Count 28.7 4.8-10.8 X10*3/uL [...] ff Reviewed date:01/08/2024 08:33:39 AM Interpretation: Performing Lab:[facility], [address] [place] [address] Notes/Report: White Blood Count 10.1 4.8-10.8 X10*3/uL [...] gy Reviewed date:01/08/2024 02:05:08 PM Interpretation: Performing Lab:[facility], [address] [place] [address] Notes/Report: Hold Lav - Possible Hematology SEE NOTE Specimen will be held untested for 8 hours. Call Hematology if testing is desired. PTT Heparin Drip Reviewed date:01/08/2024 08:33:39 AM Interpretation: Performing Lab:[address] [address] Notes/Report: PTT Heparin Drip 40.9 53-77.9 SEC For information regarding the monitoring of heparin therapy, please refer to Pharmacy. Fibrinogen Reviewed date:01/08/2024 08:33:39 AM Interpretation: Performing Lab:[facility], [address] [place] [address] Notes/Report: Fibrinogen 432 259-690 MG/DL Basic Metabolic Panel Reviewed date:01/08/2024 08:33:39 AM Interpretation: Performing Lab:[address] [address] Notes/Report: Sodium 138 135-145 mmol/L Potassium 3.8 [...] Phosphorus Reviewed date:01/08/2024 08:33:39 AM Interpretation: Performing Lab:[facility], [address] [place] [address] Notes/Report: Phosphorus 2.9 2.7-4.5 mg/dL Magnesium Reviewed date:01/08/2024 08:33:39 AM Interpretation: Performing Lab:[facility], [address] [place] [address] Notes/Report: Magnesium 1.8 1.6-2.6 mg/dL Albumin Level Reviewed date:01/08/2024 08:33:39 AM Interpretation: Performing Lab:[facility], [address] [place] [address] Notes/Report: Albumin Level 3.2 3.5-5.0 g/dL ACT LR Reviewed date:01/11/2024 01:49:27 PM Interpretation: Performing Lab:[facility], [address] [place] [address] Notes/Report: 109 [id number] HO.[place] 0846 HO.MULVEC ACT 109 79-173 Celite s Results are converted to a reference Celite ACT value in seconds. A reference interval is unavailable for ACT. Kathy Flores Reviewed date:01/08/2024 02:05:08 PM Interpretation: Performing Lab:[facility], [address] [place] [address] Notes/Report: Kathy Flores See Note Specimen held untested for 24 hours; Call to request Chemistry testing. SLIDE REVIEW Reviewed date:01/08/2024 02:05:08 PM Interpretation: Performing Lab:[facility], [address] [place] [address] Notes/Report: SLIDE REVIEW VERIFIED Type and Screen Reviewed date:01/11/2024 01:49:26 PM Interpretation: Performing Lab:[facility], [address] [place] [address] Notes/Report: Results at Issue Units as of [...] HCT called to and read back by IGG on 01/10/24 at 2000 by BORIS. Results [...] Cells Reviewed date:01/11/2024 01:49:26 PM Interpretation: Performing Lab:[facility], [address] [place] [address] Notes/Report: Red Blood Cells [id number] ON RC Red Blood Cells TRANSFUSED 01/09/24 0929 Red Blood Cells [id number] OP RC Red Blood Cells TRANSFUSED 01/09/24 1520 Red Blood Cells [id number] OP RC Red Blood Cells TRANSFUSED 01/10/24 0154 Red Blood Cells [id number] OP RC Red Blood Cells TRANSFUSED 01/10/24 1938 Red Blood Cells [id number] OP RC Red Blood Cells TRANSFUSED 01/10/242025 Red Blood Cells [id number] OP RC Red Blood Cells TRANSFUSED 01/10/24 215 Red Blood Cells [id number] OP RC Red Blood Cells TRANSFUSED 01/10/242025 Red Blood Cells [id number] OP RC Red Blood Cells TRANSFUSED 01/11/24 0159 Red Blood Cells [id number] OP RC Red Blood Cells TRANSFUSED 01/11/24 0159 Arterial Blood Gases - POC Reviewed date:01/08/2024 02:05:08 PM Interpretation: Performing Lab:[facility], [address] [place] [address] Notes/Report: ABG pH 7.42 7.35-7.45 METER #: [id number] additional_comment: Cbgreavet ctrbpavlova ABG pCO2 34 32-45 mmHg METER #: [id number] additional_comment: Cbgreavet ctrbpavlova ABG pO2 95 83-108 mmHg METER #: [id number] additional_comment: Cbgreavet ctrbpavlova ABG Base Excess -1.2 METER #: [id number] additional_comment: Cbgreavet ctrbpavlova ABG HCO3 22 22-26 mmol/L METER #: [id number] additional_comment: Cbgreavet ctrbpavlova ABG O2 % Saturation 99.0 METER #: [id number] additional_comment: Cbgreavet ctrbpavlova Pheresis Platelets Reviewed date:01/11/2024 01:49:27 PM Interpretation: Performing Lab:[facility], [address] [place] [address] Notes/Report: Pheresis Platelets [id number] OP PHPLT Pheresis Platelets TRANSFUSED 01/11/24 0133 Hold Green Gel Reviewed date:01/08/2024 02:05:08 PM Interpretation: Performing Lab:[facility], [address] [place] [phone] Notes/Report: Hold Green Gel See Note Specimen held untested for 24 hours; Call to request Chemistry testing. Fresh Frozen Plasma Reviewed date:01/11/2024 01:49:27 PM Interpretation: Performing Lab:[facility], [address] [place] [address] Notes/Report: Fresh Frozen Plasma [id number] AP FFP Fresh Frozen Plasma TRANSFUSED 01/11/24 0159 Fresh Frozen Plasma [id number] OP FFP Fresh Frozen Plasma TRANSFUSED 01/10/[address] abdomen pelvis w con Reviewed date:01/08/2024 02:05:08 PM Interpretation: Performing Lab: Notes/Report: [address] [address] [address] Scan Report Signed Patient: Zan Encinas MR#: [id number] : 1960 Acct:[id number] Age/Sex: 63 / M ADM Date: 01/07/24 Loc: [facility] - [address]: Bimal Knott MD Ordering Physician: Sawyer Case MD Date of Service: 01/08/24 Procedure(s): CT abdomen pelvis w IV con Accession Number(s): [id number] cc: Quinton Callahan MD; Sawyer Case MD [...] right superficial femoral vein. There are likely Kingsbury-Ariel bypass femoral, bilaterally.. OSSEOUS STRUCTURES: Multilevel thoracolumbar [...] by: Theo Stern MD 01/08/2024 12:21 PM [facility] Dictated By: Theo Lagunas MD Signed By: <Electronically signed by Theo Steven MD in OV> 01/08/24 1221 DD/ 1105 TD/TT: 01/08/24 1125 Coat Room Attendant: [address] [address] [address] Scan Report Signed Patient: Zan Encinas MR#: [id number] : 1960 Acct:[id number] Age/Sex: 63 / M ADM Date: 01/07/24 Loc: .ICU 255-[address]: Bimal Knott MD Ordering Physician: Sawyer Case MD Date of Service: 01/08/24 Procedure(s): CT abd omen pelvis w IV con Accession Number(s): [id number] cc: Quinton Callahan MD; Sawyer Case MD [...] right superficial femoral vein. There are likely Kingsbury-Ariel bypass femoral, bilaterally.. OSSEOUS STRUCTURES: Multilevel thoracolumbar [...] by: Theo Stern MD 01/08/2024 12:21 PM [facility] Dictated By: Theo Sawyer MD Signed By: <Electronically signed by Theo Steven MD in OV> 01/08/24 1221 DD/ 1105 TD/TT: 01/08/24 1125 Coat Room Attendant: Fibrinogen Reviewed date:01/08/2024 08:33:39 AM Interpretation: Performing Lab:[facility], [address] [place] [phone] Notes/Report: Fibrinogen 441 259-690 MG/DL Complete Blood Count Auto Di ff Reviewed date:01/08/2024 02:05:08 PM Interpretation: Performing Lab:[facility], [address] [place] [phone] Notes/Report: White Blood Count 20.0 4.8-10.8 X10*3/uL [...] Drip Reviewed date:01/08/2024 02:05:08 PM Interpretation: Performing Lab:[facility], [address] [place] [phone] Notes/Report: PTT Heparin Drip > 200.0 53-77.9 SEC Results of PTT-HD called to and read back by MARIELA on 01/08/24 at 1155 by FROY. For information regarding the monitoring of heparin therapy, please refer to Pharmacy. Basic Metabolic Panel Reviewed date:01/10/2024 09:47:57 AM Interpretation: Performing Lab:[facility], [address] [place] [phone] Notes/Report: Sodium 134 135-145 mmol/L Potassium 4.9 [...] Phosphorus Reviewed date:01/10/2024 09:47:57 AM Interpretation: Performing Lab:[facility], [address] [place] [phone] Notes/Report: Phosphorus 4.1 2.7-4.5 mg/dL Magnesium Reviewed date:01/10/2024 09:47:57 AM Interpretation: Performing Lab:[facility], [address] [place] [phone] Notes/Report: Magnesium 1.9 1.6-2.6 mg/dL Complete Blood Count Auto Di ff Reviewed date:01/10/2024 09:47:57 AM Interpretation: Performing Lab:[facility], [address] [place] [phone] Notes/Report: White Blood Count 21.8 4.8-10.8 X10*3/uL [...] REVIEW Reviewed date:01/10/2024 09:47:57 AM Interpretation: Performing Lab:[facility], [address] [place] [phone] Notes/Report: SLIDE REVIEW VERIFIED ACT LR Reviewed date:01/11/2024 01:49:27 PM Interpretation: Performing Lab:[facility], [address] [place] [phone] Notes/Report: 203 [id number] HO.GUILHERME 0855 mulvec ACT 203 79-173 Celite s Results are converted to a reference Celite ACT value in seconds. A reference interval is unavailable for ACT. Complete Blood Count Auto Di ff Reviewed date:01/10/2024 09:47:57 AM Interpretation: Performing Lab:[facility], [address] [place] [phone] Notes/Report: White Blood Count 16.7 4.8-10.8 X10*3/uL [...] gy Reviewed date:01/10/2024 09:47:57 AM Interpretation: Performing Lab:[address] [address] Notes/Report: Hold Lav - Possible Hematology SEE NOTE Specimen will be held untested for 8 hours. Call Hematology if testing is desired. Prothrombin Time INR Reviewed date:01/10/2024 09:47:57 AM Interpretation: Performing Lab:[address] [address] Notes/Report: Prothrombin Time 11.5 10.9-12.4 SEC INTERNATIONAL [...] Drip Reviewed date:01/10/2024 09:47:57 AM Interpretation: Performing Lab:[address] [address] Notes/Report: PTT Heparin Drip 28.1 53-77.9 SEC For information regarding the monitoring of heparin therapy, please refer to Pharmacy. Basic Metabolic Panel Reviewed date:01/10/2024 09:47:57 AM Interpretation: Performing Lab:[address] [address] Notes/Report: Sodium 136 135-145 mmol/L Potassium 4.5 [...] Phosphorus Reviewed date:01/10/2024 09:47:57 AM Interpretation: Performing Lab:[address] [address] Notes/Report: Phosphorus 4.0 2.7-4.5 mg/dL Magnesium Reviewed date:01/10/2024 09:47:57 AM Interpretation: Performing Lab:[facility], [address] [place] [address] Notes/Report: Magnesium 1.9 1.6-2.6 mg/dL Albumin Level Reviewed date:01/10/2024 09:47:57 AM Interpretation: Performing Lab:[facility], [address] [place] [phone] Notes/Report: Albumin Level 3.2 3.5-5.0 g/dL SLIDE REVIEW Reviewed date:01/10/2024 09:47:57 AM Interpretation: Performing Lab:[facility], [address] [place] [phone] Notes/Report: SLIDE REVIEW VERIFIED Complete Blood Count Auto Di ff Reviewed date:01/10/2024 09:47:57 AM Interpretation: Performing Lab:[facility], [address] [place] [phone] Notes/Report: White Blood Count 10.8 4.8-10.8 X10*3/uL [...] Drip Reviewed date:01/10/2024 09:47:57 AM Interpretation: Performing Lab:[facility], [address] [place] [address] Notes/Report: PTT Heparin Drip 34.2 53-77.9 SEC For information regarding the monitoring of heparin therapy, please refer to Pharmacy. Complete Blood Count Auto Di ff Reviewed date:01/10/2024 09:47:57 AM Interpretation: Performing Lab:[facility], [address] [place] [phone] Notes/Report: White Blood Count 8.4 4.8-10.8 X10*3/uL [...] Panel Reviewed date:01/10/2024 09:47:57 AM Interpretation: Performing Lab:[facility], [address] [place] [phone] Notes/Report: Sodium 135 135-145 mmol/L Potassium 4.5 [...] Phosphorus Reviewed date:01/10/2024 09:47:57 AM Interpretation: Performing Lab:[facility], [address] [place] [phone] Notes/Report: Phosphorus 3.0 2.7-4.5 mg/dL Magnesium Reviewed date:01/10/2024 09:47:57 AM Interpretation: Performing Lab:[facility], [address] [place] [phone] Notes/Report: Magnesium 2.2 1.6-2.6 mg/dL PTT Heparin Drip Reviewed date:01/10/2024 09:47:57 AM Interpretation: Performing Lab:[facility], [address] [place] [phone] Notes/Report: PTT Heparin Drip 55.2 53-77.9 SEC For information regarding the monitoring of heparin therapy, please refer to Pharmacy. Complete Blood Count Auto Di ff Reviewed date:01/10/2024 09:47:57 AM Interpretation: Performing Lab:[facility], [address] [place] [phone] Notes/Report: White Blood Count 9.2 4.8-10.8 X10*3/uL [...] Hematocrit Reviewed date:01/11/2024 01:49:27 PM Interpretation: Performing Lab:[facility], [address] [place] [phone] Notes/Report: Hemoglobin 3.3 14.0-18.0 g/dl Results of HGB called to and read back by JONAS on 01/10/24 at 1959 by BORIS. Hematocrit 9.9 42.0-52.0 % Results of HCT called to and read back by JONAS on 01/10/24 at 2001 by BORIS. Pathologist Review - CBC Reviewed date:01/11/2024 01:49:26 PM Interpretation: Performing Lab:[address] [address] Notes/Report: Pathologist Review - CBC SEE NOTE Normochromic normocytic anemia. - Javi Farias M.D. Pathology Prothrombin Time INR Reviewed date:01/10/2024 09:47:57 AM Interpretation: Performing Lab:[facility], [address] [place] [phone] Notes/Report: Prothrombin Time 12.1 10.9-12.4 SEC INTERNATIONAL [...] Drip Reviewed date:01/10/2024 09:47:57 AM Interpretation: Performing Lab:[address] [address] Notes/Report: PTT Heparin Drip 44.5 53-77.9 SEC For information regarding the monitoring of heparin therapy, please refer to Pharmacy. Comprehensive Met. Panel Reviewed date:01/11/2024 01:49:27 PM Interpretation: Performing Lab:[address] [address] Notes/Report: Sodium 135 135-145 mmol/L Potassium 4.9 [...] Panel Reviewed date:01/10/2024 09:47:57 AM Interpretation: Performing Lab:[facility], [address] [place] [phone] Notes/Report: Sodium 136 135-145 mmol/L Potassium 4.1 [...] Acid Reviewed date:01/11/2024 01:49:27 PM Interpretation: Performing Lab:[facility], [address] [place] [phone] Notes/Report: Lactic Acid 7.8 0.5-2.0 mmol/L Critical value for test(s): LACTA Results called to and read back by:VIKRAM Person calling: TANG Date:01-10-2024 Time:2121 Phosphorus Reviewed date:01/10/2024 09:47:57 AM Interpretation: Performing Lab:[facility], [address] [place] [phone] Notes/Report: Phosphorus 2.8 2.7-4.5 mg/dL Magnesium Reviewed date:01/10/2024 09:47:57 AM Interpretation: Performing Lab:[facility], [address] [place] [phone] Notes/Report: Magnesium 2.0 1.6-2.6 mg/dL Albumin Level Reviewed date:01/10/2024 09:47:57 AM Interpretation: Performing Lab:[facility], [address] [place] [phone] Notes/Report: Albumin Level 3.5 3.5-5.0 g/dL Lactic Acid-LAB USE ONLY Reviewed date:01/11/2024 01:49:27 PM Interpretation: Performing Lab:[facility], [address] [place] [phone] Notes/Report: Lactic Acid-LAB USE ONLY 1.9 0.5-2.0 mmol/L Venous Blood Gases - POC Reviewed date:01/11/2024 01:49:27 PM Interpretation: Performing Lab:[facility], [address] [place] [phone] Notes/Report: VBG pH 7.42 7.32-7.43 METER #: [id number] VBG pCO2 25 METER #: [id number] 0250C VBG pO2 76 METER #: [id number] 0250C VBG Base Excess -6.7 METER #: [id number] VBG HCO3 16 22-26 mmol/L METER #: [id number] 0250C VBG O2 % Saturation TNP Hold Green Gel Reviewed date:01/11/2024 01:49:27 PM Interpretation: Performing Lab:[facility], [address] [place] [phone] Notes/Report: Hold Green Gel See Note Specimen held untested for 24 hours; Call to request Chemistry testing. CT abdomen pelvis w con Reviewed date:01/11/2024 01:49:27 PM Interpretation: Performing Lab: Notes/Report: [address] [place] [address] CT Scan Report Signed Patient: Zan Encinas MR#: [id number] : 1960 Acct:[id number] Age/Sex: 63 / M ADM Date: 01/07/24 Loc: .[facility] 255-[address]: Bimal Knott MD Ordering Physician: Som Vela NP Date of Service: 01/10/24 Procedure(s): CT abdomen pelvis w IV con Accession Number(s): [id number] cc: Quinton Callahan MD; Som Vela NP [...] by: Jarret Ferrara MD 01/10/2024 10:00 PM [facility] Dictated By: Jarret Ferrara MD Signed By: <Electronically signed by Jarret Ferrara MD in OV> 01/10/242199 DD/ 21 TD/TT: 01/10/242021 Coat Room Attendant: [address] [address] [address] Scan Report Signed Patient: Zan Encinas MR#: [id number] : 1960 Acct:[id number] Age/Sex: 63 / M ADM Date: 01/07/24 Loc: .ICU 255-[address]: Bimal Knott MD Ordering Physician: Som Vela NP Date of Service: 01/10/24 Procedure(s): CT abd omen pelvis w IV con Accession Number(s): [id number] cc: Quinton Callahan MD; Som Vela NP [...] by: Jarret Ferrara MD 01/10/2024 10:00 PM [facility] Dictated By: Jarret Ferrara MD Signed By: <Electronically signed by Jarret Ferrara MD in OV> 01/10/242199 DD/ 21 TD/TT: 01/10/242021 Coat Room Attendant: PTT Heparin Drip Reviewed date:01/11/2024 01:49:27 PM Interpretation: Performing Lab:[facility], [address] [place] [phone] Notes/Report: PTT Heparin Drip 80.2 53-77.9 SEC For information regarding the monitoring of heparin therapy, please refer to Pharmacy. PTT Heparin Drip Reviewed date:01/11/2024 01:49:27 PM Interpretation: Performing Lab:[facility], [address] [place] [phone] Notes/Report: PTT Heparin Drip 66.0 53-77.9 SEC For information regarding the monitoring of heparin therapy, please refer to Pharmacy. Complete Blood Count Auto Di ff Reviewed date:01/11/2024 01:49:26 PM Interpretation: Performing Lab:[facility], [address] [place] [phone] Notes/Report: White Blood Count 17.6 4.8-10.8 X10*3/uL [...] Diff Reviewed date:01/12/2024 07:43:31 AM Interpretation: Performing Lab:[facility], [address] [place] [phone] Notes/Report: White Blood Count 12.3 4.8-10.8 X10*3/uL [...] ff Reviewed date:01/11/2024 01:49:26 PM Interpretation: Performing Lab:[facility], [address] [place] [phone] Notes/Report: White Blood Count 18.2 4.8-10.8 X10*3/uL [...] Panel Reviewed date:01/11/2024 01:49:26 PM Interpretation: Performing Lab:[address] [address] Notes/Report: Sodium 135 135-145 mmol/L Potassium 4.6 [...] Phosphorus Reviewed date:01/11/2024 01:49:26 PM Interpretation: Performing Lab:[address] [address] Notes/Report: Phosphorus 4.3 2.7-4.5 mg/dL Magnesium Reviewed date:01/11/2024 01:49:26 PM Interpretation: Performing Lab:[facility], [address] [place] [phone] Notes/Report: Magnesium 2.2 1.6-2.6 mg/dL Albumin Level Reviewed date:01/11/2024 01:49:26 PM Interpretation: Performing Lab:[facility], [address] [place] [phone] Notes/Report: Albumin Level 3.6 3.5-5.0 g/dL SLIDE REVIEW Reviewed date:01/11/2024 01:49:26 PM Interpretation: Performing Lab:[facility], [address] [place] [phone] Notes/Report: SLIDE REVIEW VERIFIED Venous Blood Gases - POC Reviewed date:01/11/2024 01:49:26 PM Interpretation: Performing Lab:[facility], [address] [place] [phone] Notes/Report: VBG pH 7.49 7.32-7.43 METER #: [id number] additional_comment: Cb aditya ctrbb henriquezc VBG pCO2 35 METER #: [id number] additional_comment: Cb aditya ctrbb henriquezc VBG pO2 57 METER #: [id number] additional_comment: Cb aditya ctrbb henriquezc VBG Base Excess 4.0 METER #: [id number] additional_comment: Cb aditya ctrbb henriquezc VBG HCO3 27 22-26 mmol/L METER #: [id number] additional_comment: Cb aditya ctrbb henriquezc VBG O2 % Saturation 92.0 METER #: [id number] additional_comment: Jeovany burgess ctrbb henriquezc Venous Blood Gases - POC Reviewed date:01/11/2024 01:49:26 PM Interpretation: Performing Lab:[facility], [address] [place] [phone] Notes/Report: VBG pH 7.42 7.32-7.43 METER #: [id number] additional_comment: Cb debora ctrbb henriquezc VBG pCO2 42 METER #: [id number] additional_comment: Jeovany stevenson henriquezc VBG pO2 35 METER #: [id number] additional_comment: Jeovany stevenson henriquezc VBG Base Excess 3.7 METER #: [id number] additional_comment: Jeovany stevenson henrimichazc VBG HCO3 28 22-26 mmol/L METER #: [id number] additional_comment: Jeovany stevenson henriquezc VBG O2 % Saturation 62.0 METER #: [id number] additional_comment: Jeovany stevenson henriquezc Complete Blood Count Auto Di ff Reviewed date:01/11/2024 01:49:26 PM Interpretation: Performing Lab:[facility], [address] [place] [phone] Notes/Report: White Blood Count 14.9 4.8-10.8 X10*3/uL [...] ff Reviewed date:01/11/2024 08:19:34 PM Interpretation: Performing Lab:[facility], [address] [place] [phone] Notes/Report: White Blood Count 14.3 4.8-10.8 X10*3/uL [...] REVIEW Reviewed date:01/11/2024 08:19:34 PM Interpretation: Performing Lab:[facility], [address] [place] [address] Notes/Report: SLIDE REVIEW VERIFIED Basic Metabolic Panel Reviewed date:01/12/2024 07:43:31 AM Interpretation: Performing Lab:[facility], [address] [place] [phone] Notes/Report: Sodium 133 135-145 mmol/L Potassium 4.0 [...] Phosphorus Reviewed date:01/12/2024 07:43:31 AM Interpretation: Performing Lab:[facility], [address] [place] [phone] Notes/Report: Phosphorus 2.7 2.7-4.5 mg/dL Magnesium Reviewed date:01/12/2024 07:43:31 AM Interpretation: Performing Lab:[facility], [address] [place] [phone] Notes/Report: Magnesium 2.4 1.6-2.6 mg/dL Complete Blood Count no Diff Reviewed date:01/13/2024 07:58:52 PM Interpretation: Performing Lab:[facility], [address] [place] [phone] Notes/Report: White Blood Count 11.9 4.8-10.8 X10*3/uL [...] ff Reviewed date:01/12/2024 07:43:31 AM Interpretation: Performing Lab:[facility], [address] [place] [phone] Notes/Report: White Blood Count 11.0 4.8-10.8 X10*3/uL [...] Panel Reviewed date:01/12/2024 07:43:31 AM Interpretation: Performing Lab:[address] [address] Notes/Report: Sodium 139 135-145 mmol/L Potassium 3.9 [...] Phosphorus Reviewed date:01/12/2024 07:43:31 AM Interpretation: Performing Lab:[address] [address] Notes/Report: Phosphorus 2.8 2.7-4.5 mg/dL Magnesium Reviewed date:01/12/2024 07:43:31 AM Interpretation: Performing Lab:[address] [place] [address] Notes/Report: Magnesium 2.3 1.6-2.6 mg/dL SLIDE REVIEW Reviewed date:01/12/2024 07:43:31 AM Interpretation: Performing Lab:[facility], [address] [place] [phone] Notes/Report: SLIDE REVIEW VERIFIED Venous Blood Gases - POC Reviewed date:01/12/2024 07:43:31 AM Interpretation: Performing Lab:[facility], [address] [place] [phone] Notes/Report: VBG pH 7.41 7.32-7.43 METER #: [id number] additional_comment: Jeovany stevenson henric VBG pCO2 47 METER #: [id number] additional_comment: Jeovany burgess ctrbb henric VBG pO2 34 METER #: [id number] additional_comment: Jeovany aguilarbb henric VBG Base Excess 5.9 METER #: [id number] additional_comment: Jeovany aguilarbb henric VBG HCO3 31 22-26 mmol/L METER #: [id number] additional_comment: Jeovany aguilarbb henric VBG O2 % Saturation 56.0 METER #: [id number] additional_comment: Jeovany aguilarbb henric Complete Blood Count Auto Di ff Reviewed date:01/12/2024 07:43:31 AM Interpretation: Performing Lab:[facility], [address] [place] [phone] Notes/Report: White Blood Count 10.7 4.8-10.8 X10*3/uL [...] ff Reviewed date:01/13/2024 07:58:52 PM Interpretation: Performing Lab:[facility], [address] [place] [phone] Notes/Report: White Blood Count 11.2 4.8-10.8 X10*3/uL [...] Diff Reviewed date:01/13/2024 07:58:52 PM Interpretation: Performing Lab:[address] [address] Notes/Report: White Blood Count 12.6 4.8-10.8 X10*3/uL [...] ff Reviewed date:01/13/2024 07:58:52 PM Interpretation: Performing Lab:[address] [address] Notes/Report: White Blood Count 11.1 4.8-10.8 X10*3/uL [...] Panel Reviewed date:01/13/2024 07:58:52 PM Interpretation: Performing Lab:[facility], [address] [place] [phone] Notes/Report: Sodium 137 135-145 mmol/L Potassium 3.8 [...] Phosphorus Reviewed date:01/13/2024 07:58:52 PM Interpretation: Performing Lab:[facility], [address] [place] [address] Notes/Report: Phosphorus 3.0 2.7-4.5 mg/dL Magnesium Reviewed date:01/13/2024 07:58:52 PM Interpretation: Performing Lab:[facility], [address] [place] [address] Notes/Report: Magnesium 2.3 1.6-2.6 mg/dL Albumin Level Reviewed date:01/13/2024 07:58:52 PM Interpretation: Performing Lab:[facility], [address] [place] [phone] Notes/Report: Albumin Level 3.5 3.5-5.0 g/dL SLIDE REVIEW Reviewed date:01/13/2024 07:58:52 PM Interpretation: Performing Lab:[facility], [address] [place] [address] Notes/Report: SLIDE REVIEW VERIFIED Venous Blood Gases - POC Reviewed date:01/13/2024 07:58:52 PM Interpretation: Performing Lab:[facility], [address] [place] [address] Notes/Report: VBG pH 7.46 7.32-7.43 METER #: [id number] additional_comment: Jeovany janayprakashraiza laurenbb henric VBG pCO2 37 METER #: [id number] additional_comment: Jeovany martinez ctrbb henric VBG pO2 55 METER #: [id number] additional_comment: Jeovany janayespinoza ctrbb henric VBG Base Excess 3.2 METER #: [id number] additional_comment: Jeovany stevenson henric VBG HCO3 27 22-26 mmol/L METER #: [id number] additional_comment: Jeovany stevenson henric VBG O2 % Saturation 87.0 METER #: [id number] additional_comment: Jeovnay stevenson henric Complete Blood Count Auto Di ff Reviewed date:01/13/2024 07:58:52 PM Interpretation: Performing Lab:[facility], [address] [place] [phone] Notes/Report: White Blood Count 12.6 4.8-10.8 X10*3/uL [...] ff Reviewed date:01/15/2024 06:02:02 AM Interpretation: Performing Lab:[facility], [address] [place] [phone] Notes/Report: White Blood Count 13.1 4.8-10.8 X10*3/uL [...] ff Reviewed date:01/15/2024 06:02:02 AM Interpretation: Performing Lab:[facility], [address] [place] [address], [place] [address] Notes/Report: White Blood Count 12.1 4.8-10.8 X10*3/uL [...] Hematocrit Reviewed date:01/15/2024 06:02:02 AM Interpretation: Performing Lab:[address] [address] Notes/Report: Hemoglobin 7.9 14.0-18.0 g/dl Hematocrit 23.5 42.0-52.0 % Basic Metabolic Panel Reviewed date:01/15/2024 06:02:02 AM Interpretation: Performing Lab:[facility], [address] [place] [address] Notes/Report: Sodium 136 135-145 mmol/L Potassium 3.8 [...] Phosphorus Reviewed date:01/15/2024 06:02:02 AM Interpretation: Performing Lab:[facility], [address] [place] [phone] Notes/Report: Phosphorus 2.8 2.7-4.5 mg/dL Magnesium Reviewed date:01/15/2024 06:02:02 AM Interpretation: Performing Lab:[facility], [address] [place] [phone] Notes/Report: Magnesium 2.2 1.6-2.6 mg/dL Albumin Level Reviewed date:01/15/2024 06:02:02 AM Interpretation: Performing Lab:[facility], [address] [place] [phone] Notes/Report: Albumin Level 3.4 3.5-5.0 g/dL SLIDE REVIEW Reviewed date:01/15/2024 06:02:02 AM Interpretation: Performing Lab:[facility], [address] [place] [phone] Notes/Report: SLIDE REVIEW VERIFIED Complete Blood Count no Diff Reviewed date:01/16/2024 08:51:12 AM Interpretation: Performing Lab:[facility], [address] [place] [phone] Notes/Report: White Blood Count 12.7 4.8-10.8 X10*3/uL [...] Diff Reviewed date:01/16/2024 08:51:12 AM Interpretation: Performing Lab:[address] [phone] Notes/Report: White Blood Count 9.9 4.8-10.8 X10*3/uL [...] Panel Reviewed date:01/17/2024 05:05:01 AM Interpretation: Performing Lab:[address] [phone] Notes/Report: Sodium 135 135-145 mmol/L Potassium 4.2 [...] Magnesium Reviewed date:01/17/2024 05:05:01 AM Interpretation: Performing Lab:[facility], [address] [place] [phone] Notes/Report: Magnesium 2.3 1.6-2.6 mg/dL Complete Blood Count Auto Di ff Reviewed date:01/18/2024 08:33:04 PM Interpretation: Performing Lab:[facility], [address] [place] [phone] Notes/Report: White Blood Count 12.0 4.8-10.8 X10*3/uL [...] te Reviewed date:01/18/2024 08:33:04 PM Interpretation: Performing Lab:[address] [phone] Notes/Report: Erythrocyte Sedimentation Rate 92 0-15 MM/HR Patients with polycythemia and many hemoglobin abnormalities may have depressed sed rates whereas patients with anemia may have elevated sed rates. Prothrombin Time INR Reviewed date:01/18/2024 08:33:04 PM Interpretation: Performing Lab:[address] [phone] Notes/Report: Prothrombin Time 13.4 10.9-12.4 [employer] [...] Panel Reviewed date:01/18/2024 08:33:04 PM Interpretation: Performing Lab:[address] [phone] Notes/Report: Sodium 134 135-145 mmol/L Potassium 4.2 [...] Acid Reviewed date:01/18/2024 08:33:04 PM Interpretation: Performing Lab:[address] [phone] Notes/Report: Lactic Acid 1.3 0.5-2.0 mmol/L C Reactive Protein Reviewed date:01/18/2024 08:33:04 PM Interpretation: Performing Lab:[address] [address] Notes/Report: C Reactive Protein 14.10 < or = 0.50 mg/dL Lipase Reviewed date:01/18/2024 08:33:04 PM Interpretation: Performing Lab:[address] [address] Notes/Report: Lipase 24 8-78 U/L SLIDE REVIEW Reviewed date:01/18/2024 08:33:04 PM Interpretation: Performing Lab:[address] [address] Notes/Report: SLIDE REVIEW VERIFIED Blood Culture (First) Reviewed date:01/24/2024 07:41:27 AM Interpretation: Performing Lab:[address] [address] Notes/Report: Blood Culture (First) No growth after 5 days. Blood Culture (Second) Reviewed date:01/24/2024 07:41:27 AM Interpretation: Performing Lab:[facility], [address] [place] [address] Notes/Report: Blood Culture (Second) No growth after 5 days. US arterial duplex LE RT Reviewed date:01/21/2024 07:35:28 AM Interpretation: Performing Lab: Notes/Report: [facility] [address] [place] [address] Ultrasound Report Signed with Addenda Patient: Zan Encinas MR#: [id number] : 1960 Acct:[id number] Age/Sex: 63 / M ADM Date: 01/18/24 Loc: .ED Attending Dr: Ordering Physician: Yuriy Dunbar Date of Service: 01/18/24 Procedure(s): US arterial duplex LE RT Accession Number(s): [id number] cc: Quinton Callahan MD; Yuriy Dunbar ADDENDUM ADDENDUM #1 Findings were communicated by telephone with Dr. Gerard by Dr. Zarate at 4 hours. Electronically signed by: Placido Zarate MD 01/18/2024 08:41 PM [facility] Addendum Dictated By: Yuriy Zarate [...] in OV> 01/18/242032 DD/ 150 TD/TT: 01/18/241505 Coat Room Attendant: BLANCA [place] [address] Ultrasound Report Signed with Addenda Patient: Zan Encinas MR#: [id number] : 1960 Acct:[id number] Age/Sex: 63 / M ADM Date: 01/18/24 Loc: .ED Attending Dr: Ordering Physician: Yuriy Dunbar Date of Service: 01/18/24 Procedure(s): US arterial duplex LE RT Accession Number(s): [id number] cc: Quinton Callaahn MD; Yuriy Dunbar ADDENDUM ADDENDUM #1 Findings [...] OV> 01/18/242032 DD/ 02 TD/TT: 01/18/24 1506 Coat Room Attendant: BLANCA XR foot RT min 3V Reviewed date:01/18/2024 08:33:04 PM Interpretation: Performing Lab: Notes/Report: [address] [address] XRay Report Signed Patient: Zan Encinas MR#: [id number] : 1960 Acct:[id number] Age/Sex: 63 / M ADM Date: 01/18/24 Loc: HO.ED Attending Dr: Ordering Physician: Yuriy Dunbar Date of Service: 01/18/24 Procedure(s): XR foot RT min 3V Accession Number(s): [id number] cc: Quinton Callahan MD; Yuriy Dunbar EXAMINATION: [...] 01/18/24 1619 DD/ 1516 TD/TT: 01/18/24 1534 Coat Room Attendant: MICHELA [address] [address] XRay Report Signed Patient: Zan Encinas MR#: [id number] : 1960 Acct:[id number] Age/Sex: 63 / M ADM Date: 01/18/24 Loc: HO.ED Attending Dr: Ordering Physician: Yuriy Dunbar Date of Service: 01/18/24 Procedure(s): XR chito t RT min 3V Accession Number(s): [id number] cc: Quinton Callahan MD; Yuriy Dunbar EXAMINATION: [...] by: Kaushal Cohen MD 01/18/2024 04:19 PM [facility] Dictated By: Kaushal Cohen MD Signed By: <Electronically signed by Kaushal Cohen MD in OV> 01/18/24 1619 DD/ 1516 TD/TT: 01/18/24 1534 Coat Room Attendant: MICHELA Complete Blood Count no Diff Reviewed date:02/04/2024 11:35:53 AM Interpretation: Performing Lab:[facility], [address] [place] [address] Notes/Report: White Blood Count 11.5 4.8-10.8 X10*3/uL [...] INR Reviewed date:02/04/2024 11:35:53 AM Interpretation: Performing Lab:[address] [address] Notes/Report: Prothrombin Time 13.0 10.9-12.4 SEC INTERNATIONAL [...] Time Reviewed date:02/04/2024 11:35:53 AM Interpretation: Performing Lab:[facility], [address] [place] [address] Notes/Report: Partial Thromboplastin Time 33.9 26.0-36.8 SEC For information regarding the monitoring of direct thrombin inhibitors, please refer to Pharmacy. Basic Metabolic Panel Reviewed date:02/04/2024 11:35:53 AM Interpretation: Performing Lab:[address] [address] Notes/Report: Sodium 138 135-145 mmol/L Potassium 4.4 [...] Pathology Reviewed date:02/08/2024 08:35:16 AM Interpretation: Performing Lab:[facility], [address] [place] [address] Notes/Report: ---- Name: Juan Encinaseun Cuevas Age/Sex: 63/M : 1960 Unit#: [id number] Attend Dr: Bimal Knott MD Re02/04/24 Status : ADM IN Location: [facility] 364-1 Disch: ---- SPEC : [id number] RECD : 12/ STATUS: YUSUF MATHUR NUM: [id number] FRANTZ: 02/04/24-[address]: Bimal Knott MD [...] label ed ?right leg? is a right zryyf-igk-hlxw amputation specimen which measures 34.0 cm in [...] No other erosions or ulcers are identified. Panel Saw Operator sections are submitted labeled as follows: A1 [...] Toney Encinas Age/Sex: 63/M : 1960 Unit#: [id number] Attend Dr: Bimal Knott MD Re02/04/24 Status : ADM IN Location: [facility] 364-1 Disch: ---- SPEC : [id number] RECD : 02/04/245 STATUS: YUSUF MATHUR NUM: [id number] FRANTZ: 02/04/24-1158 [facility] DR: Bimal Knott MD ENTERED: 02/04/24- 216 SP TYPE: Surgical OTHR DR: Quinton Callahan MD ORDERED: Gross Micro L5 Copies To: Quinton Callahan MD [address] [facility], [address] [place] [id number] Bimal Knott MD [facility] [address] [place] [address] ---- Signed (signature on file) Val Cris 02/06/24 1550 ---- END OF REPORT Type and Screen Reviewed date:02/04/2024 11:35:53 AM Interpretation: Performing Lab:[facility], [address] [place] [address] Notes/Report: Blood Type OP Antibody Screen NEGATIVE Complete Blood Count no Diff Reviewed date:02/08/2024 08:35:16 AM Interpretation: Performing Lab:[facility], [address] [place] [address] Notes/Report: White Blood Count 9.4 4.8-10.8 X10*3/uL [...] ff Reviewed date:02/08/2024 08:35:16 AM Interpretation: Performing Lab:[facility], [address] [place] [address] Notes/Report: White Blood Count 11.2 4.8-10.8 X10*3/uL [...] Panel Reviewed date:02/08/2024 08:35:16 AM Interpretation: Performing Lab:[facility], [address] [place] [address] Notes/Report: Sodium 137 135-145 mmol/L Potassium 3.9 [...] REVIEW Reviewed date:02/08/2024 08:35:16 AM Interpretation: Performing Lab:[address] [address] Notes/Report: SLIDE REVIEW VERIFIED Complete Blood Count no Diff Reviewed date:02/08/2024 08:35:16 AM Interpretation: Performing Lab:[facility], [address] [place] [address] Notes/Report: White Blood Count 9.3 4.8-10.8 X10*3/uL [...] Panel Reviewed date:02/08/2024 08:35:16 AM Interpretation: Performing Lab:[address] [address] Notes/Report: Sodium 136 135-145 mmol/L Potassium 3.8 [...] Level Reviewed date:02/08/2024 08:35:16 AM Interpretation: Performing Lab:[facility], [address] [place] [address] Notes/Report: Albumin Level 2.7 3.5-5.0 g/dL Complete Blood Count no Diff Reviewed date:02/08/2024 08:35:16 AM Interpretation: Performing Lab:[facility], [address] [place] [address] Notes/Report: White Blood Count 9.0 4.8-10.8 X10*3/uL [...] Gel Reviewed date:02/08/2024 08:35:16 AM Interpretation: Performing Lab:[address] [address] Notes/Report: Hold Green Gel See Note Specimen held untested for 24 hours; Call to request Chemistry testing. Complete Blood Count Auto Di ff Reviewed date:05/27/2024 08:42:02 AM Interpretation: Performing Lab:[facility], [address] [place] [address] Notes/Report: White Blood Count 10.9 4.8-10.8 X10*3/uL [...] te Reviewed date:05/27/2024 08:42:02 AM Interpretation: Performing Lab:[address] [address] Notes/Report: Erythrocyte Sedimentation Rate 10 0-15 MM/HR Patients with polycythemia and many hemoglobin abnormalities may have depressed sed rates whereas patients with anemia may have elevated sed rates. Comprehensive Met. Panel Reviewed date:05/27/2024 08:42:02 AM Interpretation: Performing Lab:[address] [address] Notes/Report: Sodium 138 135-145 mmol/L Potassium 4.3 [...] Acid Reviewed date:05/27/2024 08:42:02 AM Interpretation: Performing Lab:[address] [address] Notes/Report: Lactic Acid 1.4 0.5-2.0 mmol/L C Reactive Protein Reviewed date:05/27/2024 08:42:02 AM Interpretation: Performing Lab:[address] [address] Notes/Report: C Reactive Protein 1.01 < or = 0.50 mg/dL Blood Culture (First) Reviewed date:06/07/2024 04:51:50 AM Interpretation: Performing Lab:[address] [address] Notes/Report: Blood Culture (First) No growth after 5 days. Blood Culture (Second) Reviewed date:06/07/2024 04:51:50 AM Interpretation: Performing Lab:[address] [address] Notes/Report: Blood Culture (Second) No growth after 5 days. XR knee RT 4V Reviewed date:05/27/2024 08:42:02 AM Interpretation: Performing Lab: Notes/Report: [address] [address] XRay Report Signed Patient: Zan Encinas MR#: [id number] : 1960 Acct:[id number] Age/Sex: 64 / M ADM Date: 05/26/24 Loc: HO.ED Attending Dr: Ordering Physician: Gt Cruz Date of Service: 05/26/24 Procedure(s): XR knee RT 4V Accession Number(s): [id number] cc: Gt Cruz; Quinton Callahan MD EXAMINATION: XR KNEE, RIGHT CLINICAL INFORMATION: Right stump erythema/pus discharge COMPARISON: 10/01/2023. TECHNIQUE: Four views of the right knee. FINDINGS: There is mild generalized osteopenia. There has been a rwerw-pjh-ptqo amputation. There are no permeative changes involving [...] 05/26/24 1532 DD/ 1452 TD/TT: 05/26/24 1510 Coat Room Attendant: [address] [address] XRay Report Signed Patient: Zan Encinas MR#: [id number] : 1960 Acct:[id number] Age/Sex: 64 / M ADM Date: 05/26/24 Loc: HO.ED Attending Dr: Ordering Physician: Gt Cruz Date of Service: 05/26/24 Procedure(s): XR kne e RT 4V Accession Number(s): [id number] cc: Gt Cruz; Quinton Callahan MD EXAMINATION: XR KNEE, RIGHT CLINICAL INFORMATION: Right stump erythema /pus discharge COMPARISON: 10/01/2023. TECHNIQUE: Four views of the ri ght knee. FINDINGS: There is mild generalized osteopenia. There has been a ajyoq-vjm-naau amputation. There are no permeative changes involving [...] 05/26/24 1532 DD/ 1452 TD/TT: 05/26/24 1510 Coat Room Attendant: Complete Blood Count Auto Di ff Reviewed date:05/27/2024 08:42:02 AM Interpretation: Performing Lab:[facility], [address] [place] [address] Notes/Report: White Blood Count 9.2 4.8-10.8 X10*3/uL [...] Panel Reviewed date:05/27/2024 08:42:02 AM Interpretation: Performing Lab:[facility], [address] [place] [address] Notes/Report: Sodium 140 135-145 mmol/L Potassium 3.8 [...] Creatinine Reviewed date:05/27/2024 08:42:02 AM Interpretation: Performing Lab:[address] [address] Notes/Report: Creatinine 0.84 0.5-1.4 mg/dL Creatinine Clr [...] Random Reviewed date:05/28/2024 04:55:44 AM Interpretation: Performing Lab:[address] [address] Notes/Report: Vancomycin Random 13.2 15-20 mcg/mL MR knee RT wo/w con Reviewed date:05/28/2024 04:55:44 AM Interpretation: Performing Lab: Notes/Report: [address] [address] Magnetic Resonance Report Signed Patient: Zan Encinas MR#: [id number] : 1960 Acct:[id number] Age/Sex: 64 / M ADM Date: 05/26/24 Loc: .S3 376-[address]: Luciano Mari MD Ordering Physician: Keith Menendez MD Date of Service: 05/27/24 Procedure(s): MR knee RT wo/w con Accession Number(s): [id number] cc: Quinton Callahan MD; Keith Menendez MD [...] Cortes MD Signed By: <Electronically signed by Alavrado Cortes MD in OV> 05/27/24 1626 DD/ 1527 TD/TT: 05/27/24 1549 Coat Room Attendant: [address] [address] Magnetic Resonance Report Signed Patient: Zan Encinas MR#: [id number] : 1960 Acct:[id number] Age/Sex: 64 / M ADM Date: 05/26/24 Loc: [facility] 376-[address]: Alfredo Mari MD Ordering Physician: Keith Menendez MD Date of Service: 05/27/24 Procedure(s): MR green e RT wo/w con Accession Number(s): [id number] cc: Quinton Callahan MD; Keith Menendez MD [...] 05/27/24 1626 DD/ 1527 TD/TT: 05/27/24 1549 Coat Room Attendant: Creatinine Reviewed date:05/28/2024 02:19:09 PM Interpretation: Performing Lab:[address] [address] Notes/Report: Creatinine 0.81 0.5-1.4 mg/dL Creatinine Clr [...] Random Reviewed date:05/30/2024 07:30:54 PM Interpretation: Performing Lab:[address] [address] Notes/Report: Vancomycin Random 13.4 15-20 mcg/mL Hold Lav - Possible Hematolo gy Reviewed date:05/30/2024 07:30:54 PM Interpretation: Performing Lab:[address] [address] Notes/Report: Hold Lav - Possible Hematology SEE NOTE Specimen will be held untested for 8 hours. Call Hematology if testing is desired. Creatinine Reviewed date:05/30/2024 07:30:54 PM Interpretation: Performing Lab:[address] [address] Notes/Report: Creatinine 0.79 0.5-1.4 mg/dL Creatinine Clr [...] ff Reviewed date:07/01/2024 10:06:14 AM Interpretation: Performing Lab:[facility], [address] [place] [address] Notes/Report: White Blood Count 8.9 4.8-10.8 X10*3/uL [...] Creatinine Reviewed date:07/01/2024 10:06:14 AM Interpretation: Performing Lab:[facility], [address] [place] [address] Notes/Report: Creatinine 1.10 0.5-1.4 mg/dL Estimated Glomerular Filt Rate > 60 Chronic Kidney Disease: Estimated GFR < 60 mL/min/1.73m2 Severe Kidney Disease: Estimated GFR < 15 mL/min/1.73m2 Vancomycin Trough Reviewed date:07/01/2024 10:06:14 AM Interpretation: Performing Lab:[facility], [address] [place] [address] Notes/Report: Vancomycin Trough 20.4 10.0-20.0 mcg/mL Reason [...] mouth once daily for 90 Active Nystatin 520800 UNIT/GM 1 application Ex ternally Twice a [...] Problem Status W/U Status Risk Notes Problem 416446684 Overweight (E66.3) Active confirmed His body mass index is 29. We discussed diet and nutrition. I recommended aggressive weight loss and sodium restriction. Problem 450799792 Mixed hyperlipidemia (E78.2) Active confirmed A comprehensive laboratory database with a fasting lipid profile will be obtained. He was continued on his currrent meddications. Problem 52770609 Chronic obstructive pulmonary disease, unspecified COPD type (J44.9) Active confirmed He has resumed smoking 5 cigarettes per day. He was counseled about this and made aware of the smoking cessation programs in the area. Problem 16033977 Tobacco dependence (F17.200) Active confirmed I have counseled him about smoking cessation and offered to refer him to smoking cessation programs in the community. He said he would consider this and try to cut down. Problem Left bundle branch block (I44.7) Active confirmed The administrative liaison's interpretation of the perfusion test was that the defect in the septum may be due to the bundle branch block. I will discuss this with cardiology. Problem 45746398 Hiatal hernia (K44.9) Active confirmed The symptoms of his esophageal reflux and hiatal hernia well controlled with current medications. No change in his regimen as needed. Problem 991195230 Peripheral arterial disease (I73.9) Active confirmed He is seeing the vascular surgeon eevery 2 weeks. 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 The plan is to fit him for a prosthesis. He denies any ulcers or claudication in the left leg. Problem Hoarseness (28177049) Hoarseness (R49.0) Active confirmed He will be referred to ENT for indirect laryngoscopy. Problem 1284303 Umbilical hernia without obstruction and without gangrene (K42.9) Active confirmed This is asymptomatic and requires no treatment at this time. Problem 393962820 Benign prostatic hyperplasia with lower urinary tract symptoms (N40.1) Active confirmed The tamsulosin was continued today. He will notify me if his symptoms worsen. He has had no retention. He has symptoms of prostatism. Problem 681802693 Acute right-sided low back pain with right-sided sciatica (M54.41) Active confirmed His back pain continues and I have increased the gabapentin. Problem 574123327 Palmer's esophagus determined by endoscopy (K22.70) Active confirmed He is due for an endoscopy and was referred back to his gastroenterolog ist, Dr. Quinton Campos. 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 Problem 91738973956285713 Carpal tunnel syndrome on both sides (G56.03) Active confirmed He has a history of carpal tunnel syndrome treated by Dr. Raphael. He is currently asymptomatic. Problem 8579682122927689 Chronic osteomyelitis of right tibia with draining [...] Date Provider Diagnosis Quinton Callahan III, MD [address] [place] [address] [place] [address] 09/19/2023 Quinton Callahan Peripheral arterial disease I73.9 ; Open wound T14.8XXA ; Benign prostatic hyperplasia with lower urinary tract symptoms N40.1 ; Palmer's esophagus determined by endoscopy K22.70 ; Chronic obstructive pulmonary disease, unspecified COPD type J44.9 ; Tobacco dependence F17.200 and Mixed hyperlipidemia E78.2 Quinton Callahan III, MD [address] [place] [address] [place] [address] 09/24/2023 Quinton Callahan Peripheral arterial disease I73.9 ; Edema of right lower extremity R60.0 ; Palmer's esophagus determined by endoscopy K22.70 ; Benign prostatic hyperplasia with lower urinary tract symptoms N40.1 ; Overweight E66.3 and Tobacco dependence F17.200 Quinton Callahan III, MD [address] [place] [address] [place] [address] 10/15/2023 Quinton Callahan Peripheral arterial disease I73.9 ; Palmer's esophagus determined by endoscopy K22.70 ; Chronic obstructive pulmonary disease, unspecified COPD type J44.9 ; Tobacco dependence F17.200 and Mixed hyperlipidemia E78.2 Quinton Callahan III, MD [address] [place] [address] [place] [address] 10/31/2023 Quinton Callahan Peripheral arterial disease I73.9 ; Benign prostatic hyperplasia with lower urinary tract symptoms N40.1 ; Palmer's esophagus determined by endoscopy K22.70 ; Chronic obstructive pulmonary disease, unspecified COPD type J44.9 ; Tobacco dependence F17.200 ; Mixed hyperlipidemia E78.2 ; Acute right-sided low back pain with right-sided sciatica M54.41 and Overweight E66.3 Quinton Callahan III, MD [address] [place] [address] [place] [address] 12/28/2023 Quinton Callahan Peripheral arterial disease I73.9 ; Chronic obstructive pulmonary disease, unspecified COPD type J44.9 ; Benign prostatic hyperplasia with lower urinary tract symptoms N40.1 ; Palmer's esophagus determined by endoscopy K22.70 ; Hiatal hernia K44.9 ; Overweight E66.3 ; Tobacco dependence F17.200 and Mixed hyperlipidemia E78.2 Quinton Callahan III, MD [address] [place] [address] [place] [address] 06/12/2024 Quinton Callahan Peripheral arterial disease I73.9 ; Benign prostatic hyperplasia with lower urinary tract symptoms N40.1 ; Palmer's esophagus determined by endoscopy K22.70 ; Chronic obstructive pulmonary disease, unspecified COPD type J44.9 ; Overweight E66.3 ; Tobacco dependence F17.200 and Mixed hyperlipidemia E78.2 Quinton Callahan III, MD [address] [place] [address] [place] [address] 07/10/2024 Quinton Callahan Peripheral arterial disease I73.9 [...] Tobacco dependence F17.200 Quinton Callahan III, MD [address] [place] [address] [place] [address] 08/27/2024 Quinton Callahan III, MD [address] [place] [address] [place] [address] 11/27/2023 Quinton Callahan III, MD [address] [place] [address] [place] [address] 12/18/2023 Quinton Callahan III, MD [address] [place] [address] [place] [address] 12/21/2023 Quinton Callahan III, MD [address] [place] [address] [place] [address] 12/21/2023 Quinton Callahan III, MD [address] [place] [address] [place] [address] 02/12/2024 Quinton Callahan III, MD [address] [place] [address] [place] [address] 03/04/2024 Quinton Callahan III, MD [address] [place] [address] [place] [address] 05/02/2024 Quinton Callahan III, MD [address] [place] [address] [place] [address] 05/02/2024 Quinton Callahan Peripheral arterial disease I73.[address] [id number] 06/02/2024 Quinton Callahan III, MD [address] [place] [address] [place] [address] 07/23/2024 Quinton Callahan Assessments Encounter Date Diagnosis (ICD Code) Assessment Notes Treat ment Notes Treatment Clinical Notes 09/19/2023 Peripheral arterial disease (ICD-10 - I73.9) The graft is patent in the claudication has resolved. The superficial wound infection is healing. He will continue with nonadherent sterile dressings and mupirocine. 09/19/2023 Open wound (ICD-10 - T14.8XXA) 09/24/2023 Peripheral arterial disease (ICD-10 - I73.9) The right foot is warm and pink but swollen with edema extending residential up the right leg which is also [...] endoscopy and was referred back to his busboy, Dr. Quinton Campos. 10/31/2023 Peripheral arterial disease [...] 05/02/2024 Peripheral arterial disease (ICD-10 - I73.9) 09/19/2023 Benign prostatic hyperplasia with lower urinary tract symptoms (ICD-10 - N40.1) The tamsulosin was continued today. He will notify me if his symptoms worsen. He has had no retention. He has symptoms of prostatism. 09/24/2023 Palmer's esophagus determined by endoscopy (ICD-10 - K22.70) He is due for an endoscopy and was referred back to his busboy, Dr. Quinton Campos. 10/15/2023 Chronic obstructive pulmonary disease, unspecified COPD type (ICD-10 - J44.9) He has resumed smoking 5 cigarettes per day. He was counseled about this and made aware of the smoking cessation programs in the area. 10/31/2023 Palmer's esophagus determined by endoscopy (ICD-10 - K22.70) He is due for an endoscopy and was referred back to his busboy, Dr. Quinton Campos. 12/28/2023 Benign prostatic hyperplasia with lower urinary tract symptoms (ICD-10 - N40.1) The tamsulosin was continued today. He will notify me if his symptoms worsen. He has had no retention. He has symptoms of prostatism. 06/12/2024 Palmer's esophagus determined by endoscopy (ICD-10 - K22.70) He is due for an endoscopy and was referred back to his busboy, Dr. Quinton Campos. 07/10/2024 Benign prostatic hyperplasia with lower urinary tract symptoms (ICD-10 - N40.1) The tamsulosin was continued today. He will notify me if his symptoms worsen. He has had no retention. He has symptoms of prostatism. 09/19/2023 Palmer's esophagus determined by endoscopy (ICD-10 - K22.70) He is due for an endoscopy and was referred back to his busboy, Dr. Quinton Campos. 09/24/2023 Benign prostatic hyperplasia [...] endoscopy and was referred back to his busboy, Dr. Quinton Campos. 06/12/2024 Chronic obstructive pulmonary disease, unspecified COPD type (ICD-10 - J44.9) He has resumed smoking 5 cigarettes per day. He was counseled about this and made aware of the smoking cessation programs in the area. 07/10/2024 Palmer's esophagus determined by endoscopy (ICD-10 - K22.70) He is due for an endoscopy and was referred back to his busboy, Dr. Quinton Campos. 09/19/2023 Chronic obstructive pulmonary [...] have been no further signs of thromboembolism. 09/19/2023 Mixed hyperlipidemia (ICD-10 - E78.2) A [...] PCR 09/29/2019 Next Appt Details Provider Name:Quinton Yusufrne, 09/09/2024 11:30:00 AM, [address] [place] [address] [address], [place], [address], Provider Name:Quinton Yusufrne, 10/15/2024 11:00:00 AM, [address] [place] [address] [address], [place], [address], Insurance Providers Payer Name Payer Address Payer Phone Subscriber Number Group Number Insured Name Patient Relationship to Insured Coverage Start Date Coverage End Date [employer] [address] [place] [phone] [id number] Zan Olivo Self - patient is the insured 4 MEDICARE NGS [address] [place] [phone] [id number] Zan Olivo Self - patient is the [...] right leg Surgical History Surgery Date(Month/Year) Right ymwqo-kjv-ompw amputation 4 arteriogram right lower extremity 05/2019 upper endoscopy, [facility], Dr. Quinton Campos, Palmer's esophagus 2014 upper endoscopy and colonosc opy, [facility], Dr. 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
--- OUTSIDE RECORDS SUMMARY | 2024-09-01 14:03 | XMS_ITS | Data Portability ---
Author Organization [facility], Main Office Address [address] [place] [address] 204 [address] [place] [address] Care Team Providers Care Adult Ministries Director Name Role Phone [facility] OTHER KEON HEREDIA Primary Care Provider [...] Organization Details Recorded Time Blood in urine 48310293 Active [address], [address], [place], [address], [facility] 4 10:17:42 Benign prostatic hyperplasia 142539348 Active [address], [address], [place], [address], [facility] 4 10:17:40 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 [address], [address], [place], [address], [facility] 4 10:18:23 Limb ischemia 3421936064079 5 Active [address], [address], [place], [address], [facility] 4 10:19:49 Peripheral arterial disease 507397864 Active [address], [address], [place], [address], [facility] 4 10:21:45 Chronic obstructive pulmonary disease 63136878 Active [address], [address], [place], [address], [facility] 4 10:22:55 Gastroesoph ageal reflux disease 162995568 Active [address], [address], [place], [address], [facility] 4 10:23:11 Smoker 62165760 Active [address], [address], [place], [address], [facility] 4 10:23:08 Essential hypertensio n 05481387 Active [address], [address], [place], [address], [facility] 4 10:25:41 Hyperlipide angela 58975272 Active 2023 Yvonne Belcher [address] [facility], [address], [place], [address], [facility] 4 10:49:02 Peripheral vascular disease 414792760 Active 2023 Yvonne Belcher [address] [facility], [address], [place], [address], [facility] 4 10:49:07 Thrombosis of splenic artery 9535800788644 9106 Active 2023 Yvonne Belcher [address] [facility], [address], [place], [address], [facility] 4 10:49:17 Left bundle branch block 46759563 Active 2023 Yvonne Belcher [address] [facility], [address], [place], [address], [facility] 4 10:49:21 Palmer's esophagus 652301375 Active 2023 Yvonne Belcher [address] [facility], [address], [place], [address], [facility] 4 10:50:44 Problem Notes None recorded. [...] Every Day Smoker Iveth Diaz MD [address] [facility], [facility] [address], [place], [address], [facility] 02/11/2024 18:13:51 Do You Have An [...] Do You Have A Medical Power Of Apprenticeship Consultant? Yes Information not available 02/11/2024 What Was [...] (COVID-19) vaccine, UNSPECIFIED 06/25/2020 completed Nikia Montes [facility] 02/11/2024 12:20:14 SARS-COV-2 (COVID-19) vaccine, UNSPECIFIED 07/27/2020 completed Nikia Montes [facility] 02/11/2024 12:20:24 Past Encounters Encounter ID Performer Location Encounter Start Date Encounter Closed Date Diagnosis/Indication Diagnosis SNOMED-CT Code Diagnosis ICD10 Code Diagnosis Note [id number] SAMANTHA CONKLIN AT [address] [address] 02/10/2024 10:12:50 02/11/2024 14:36:04 Limb ischemia 0316177241 9105 I99.8 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 s/p R SFA - bk popliteal bypass with vein (Fletcher, 07/2023)con tinue oxycodone 10 mg TID PRNgabapen tin 400 mg QID PRN (odd, would make scheduled) monitor pain controlPT/ OT eval and treatfollo w up with surgeon in 2 weeksshrin ker to be placed once healed- add abd and celeste daily due to bleeding Peripheral arterial insufficiency 1637416177 23756 I73.9 see aboveASA 81 mg dailyfollo wed by vascular Benign pro static hyperplasia 653719180 N40.0 continue flomax 0.8 mg qhsmonitor for outflow issues Gastroesop hageal reflux disease 969153006 K21.9 pantoprazo le 80 mg dailyconsi lia reduction if toleratesm onitor reflux Blood in urine 61295944 R31.9 had inpatientm onitor for clearing Chronic ob structive pulmonary disease 62348904 J44.9 albuterol PRNincruse dailywixel a BIDmonitor resp status Essential hypertension 30929543 I10 assumed as pt is on metoprolol 25 mg daily but no documented htn [facility] Constipation 19012979 K5 9.00 add colace 100 mg BIDmonitor for improvemen t [id number] Iveth Diaz MD [place] AT [address] [address] 02/11/2024 15:43:03 02/12/2024 15:32:16 Limb ischemia 3624697956 9105 I99.8 Will change oxycodone to 10 [...] with surgeon as planned. Peripheral arterial insufficiency 6220333615 69879 I73.89 Z89.511 As above. Benign pro static hyperplasia 673795402 N40.0 No current sxs.Contin ue tamsulosin 0.8 mg qhsMonitor urinary function Gastroesop hageal reflux disease 190713358 K21.9 No current sxs.Contin ue pantoprazo le 80 mg qdMonitor GI sxs. Blood in urine 38951709 R31.0 Had one episode inpt.Now resolved.M onitor for recurrence . Chronic ob structive pulmonary disease 76575038 J43.8 Resp status good at this time.Liv nue incruse ellipta qd, Wixela 500/50 BID, duonebs BID prn and albuterol MDI 2 puffs q 4 hrs prn.Monito r resp status. Essential hypertension 75797384 I10 In good control since here (HTN is on PCP problem list)Liv nue metoprolol 25 mg qdMonitor BP and labs. Constipation 82942628 K5 9.03 Will add miralax 17 gms qd and continue colace 100 mg BIDUse prn meds if needed.Mon itor bowel function. [id number] Nam CONKLIN AT [address] [address] 02/15/2024 10:31:46 02/18/2024 15:29:05 Postoperative wound cellulitis 035411740 L76.82 exam concerning for cellulitis with increased foul smelling discharges tart doxycyclin e 100mg BID x 10 days, probiotic qd x 14 dayscheck CBC w/diff, BMP ll obtain x-ray R stump r/o osteomonit or for worsening sxs Amputated below knee 299 756113 Z89.519 As above. Limb ischemia 0670205401 9105 I99.8 continue oxycodone to 10 mg q 6 hrs scheduled x 7 days, then 10 mg q 8 hrs scheduled x 7 days then 5 mg q 8 hrs prn.Add oxycodone 10mg q24h prn breakthrou gh paincontin ue APAP 975 mg TID and increase gabapentin to 600 mg TID.Contin ue ASA 81 mg qdF/U with surgeon as planned. [id number] Nam CONKLIN AT [address] [address] 02/19/2024 07:36:20 02/21/2024 12:23:04 Postoperative wound cellulitis 871898314 L76.82 Continue doxycyclin e 100mg BID x 10 days, probiotic qd x 14 dayslabs and x-ray unremarkab lemonitor for resolution Limb ischemia 1534025712 9105 I99.8 continue oxycodone 10 mg q 8 hrs scheduled x 7 days then 5 mg q 8 hrs prn. oxycodone 10mg q24h prn breakthrou gh paincontin ue APAP 975 mg TID and gabapentin to 600 mg qam and afternoon, 900mg qhsContinu e ASA 81 mg qdconsult PMR management of painF/U with surgeon as planned. Amputated below knee 299 439789 Z89.519 As above. [id number] Nam CONKLIN AT [address] [address] 02/22/2024 09:19:49 02/25/2024 15:55:50 Postoperative wound cellulitis 181399295 L76.82 Continue doxycyclin e 100mg BID x 10 days, probiotic qd x 14 dayslabs and x-ray unremarkab lemonitor for resolution Limb ischemia 9937017828 9105 I99.8 continue oxycodone 10 mg q 8 hrs scheduled x 7 days then 5 mg q 8 hrs prn. oxycodone 10mg q24h prn breakthrou gh paincontin ue APAP 975 mg TID and gabapentin to 600 mg qam and afternoon, 900mg qhsContinu e ASA 81 mg qdconsult PMR management of painF/U with surgeon as planned. Amputated below knee 299 982569 Z89.519 As above. [id number] Nam CONKLIN AT [address] [address] 02/25/2024 07:30:39 02/26/2024 13:58:50 Postoperative wound cellulitis 639470687 L76.82 resolvedmo nitor for recurrence Limb ischemia 9321267378 9105 I99.8 continue oxycodone 10 mg q 8 hrs scheduled x 7 days then 5 mg q 8 hrs prn. oxycodone 10mg BID prn breakthrou gh paincontin ue APAP 975 mg TID, INcrease gabapentin to 900 mg qam and afternoon, 900mg qhsContinu e ASA 81 mg qdconsult PMR management of painF/U with surgeon as planned. Amputated below knee 299 991701 Z89.519 As above. [id number] Nam CONKLIN AT [address] [address] 02/28/2024 08:43:00 02/29/2024 10:22:21 Limb ischemia 0886467132 9105 I99.8 continue oxycodone 10 mg q 8 hrs scheduled x 7 days then 5 mg q 8 hrs prn. oxycodone 10mg BID prn breakthrou gh paincontin ue APAP 975 mg TID, gabapentin to 900 mg TIDContinu e ASA 81 mg qdconsult PMR management of painF/U with surgeon as planned. Amputated below knee 299 949930 Z89.519 As above. [id number] MD RUBIN Enciso AT [address] [address] 03/03/2024 11:24:29 03/27/2024 10:48:50 Limb ischemia 1338309064 9105 I99.8 s/p amputation cleared for discharge with services and ortho f/u in placedisch arged on oxycodone 5 mg q 8 prn pain #23 tablets given at time of dischargep atient will need appointmen t with PCP for f/u discussed with nursing to schedule prior to discharge Amputated below knee 299 773958 Z89.519 As above. Health Concerns Section Related Observation LastModified by Organization Detai ls LastModified Time None Recorded Concern Status LastModified by Organization Details LastModified Time None Recorded Advance Directives Directive Y: Payers Insurance Date Sequence Insurance Name Policy Number Policy Matute Covered Member ID Matute Member ID Guarantor Name 03/27/2024 1 [employer] (MEDICARE REPLACEMENT/ ADVANTAGE - PPO) [id number] Zan Encinas [id number] Zan Encinas Notes Date Note Type Note [...] f/t/h occlusion of bypass now s/p R CHAR FILTER OPERATOR-AT bypass w ePTFE w/ patch angioplasties (Hillman 12/01). 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 [facility] [address] [facility], [address], [place], [address], [facility] 02/22/2024 11:16:10 02/25/2024 text/html This is a 63 yo man who is being seen for acute rounding visit Patient doing well todayPain controlled with oxycodone. Gabapentin increased last week at f/u vascular with IMprovement. Reported increased pain over the weekend with 1x dose oxycodone 10mg.Actively participating in therapyself-propelling around unit in w/cPMR consulted Patient seen sitting in room in bed in [facility]. 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 [facility] [address] [facility], [address], [place], [address], [facility] 02/25/2024 11:08:05 02/28/2024 text/html This is a 63 yo man who is being seen for acute rounding visit Patient had f/u vascular on 02/25recs to continue with daily dressing changes noted with small open area on medial aspectNo headhunter or prosthesis yet. The site needs to be completely healed first. Can increase gabapentin 900mg TID and decrease oxycodone.f/u 03/11/24 Patient seen lying in bed with veneer sander doing dressing change. He reports improvement in [...] f/t/h occlusion of bypass now s/p R CHAR FILTER OPERATOR-AT bypass w ePTFE w/ patch angioplasties (Ratna 12/01). [facility] [address] [facility], [address], [place], [address], [facility] 02/28/2024 12:14:07 03/03/2024 text/html Patient is [...] f/u in place Garrett Fletcher MD [address] [facility], [address], [place], [address], [facility] 03/03/2024 11:33:58
== END 2024-09-01 14:10 | disposition home or self-care (01) ==
LOC: HO.HID 13:34
PROVIDERS: PCP Internal Medicine Medical Oncology; Visit Provider Internal Medicine
DX: M86.9 Osteomyelitis, unspecified (principal)
CPT/HCPCS: 99213

== ENCOUNTER → 2024-09-01 13:34 | Outpatient (BNVA) | payer MEDICARE, SELFPAY | PROVIDERS: PCP Internal Medicine Medical Oncology; Visit Provider Internal Medicine | DX: M86.9 Osteomyelitis, unspecified (principal); G90.521 Complex regional pain syndrome I of right lower limb | CPT/HCPCS: 99212 ==

== ENCOUNTER 2024-09-23 12:56 | Outpatient (AMB) | payer MEDICARE, SELFPAY ==
--- OUTSIDE RECORDS SUMMARY | 2023-08-14 06:30 | XMS_ITS ---
Author Organization [facility] Address [address] [place] [address] Care Team Providers Care Shake Sawyer Name Role Phone Quinton Callahan MD Primary Care Provider Unavailab Quinton Alvarez [phone] REASON FOR VISIT Patient presents today for EGD, NUGENT'S ESOPHAGUS Encounters Encounter Location Date Provider Diagnosis [facility] [address] [place] [address] 08/14/2023 Quinton Campos Plan Of Treatment No Information Progress Notes * SHAUNA HERNANDEZHDOB:1960 (64 yo M)Acc No.[id number]:08/14/2023 Progress Notes Patient: JUAN FRANCISCO TONG Provider: Angeles Campos MD :1960 A ge:63 Y S ex:Male Date:08/14/2023 Address:[address] [place] [address] [place] [facility] Pcp:Quinton Callahan MD Subjective: * Chief Complaints: [...] Date: 08/14/2023 Generated for Printi ng/Fayuryg/eTransmitting on: 09/23/2024 01:43 PM EDT
--- OUTSIDE RECORDS SUMMARY | 2024-09-09 07:30 | XMS_ITS ---
Author Organization Quinton Callahan III, MD Address [address] [place] [address] Care Team Providers Care Nuclear Weapons Specialist Name Role Phone Quinton Callahan Primary Care Provider [phone] Allergies Allergen (clinical drug ingredient) Drug/Non Drug [...] Provider Speciality Internal M edicine Referred Provider [facility] er, Cardiology Referred Provider Specialty Cardiology [...] Date Provider Diagnosis Quinton Callahan III, MD [address] [place] [address] [place] [address] 09/09/2024 Quinton Callahan Irregular heart rate I49.9 [...] endoscopy and was referred back to his radio program checker, Dr. Quinton Campos. 09/09/2024 Chronic obstructive pulmonary [...] Irregular Heart Rate History of A-Fib, Cardiology [facility] Next Appt Details Follow Up: 3 Weeks, Reason: OV Provider Name:Quinton Callahan, 09/30/2024 02:00:00 PM, [address] [place] [address] [address], [place], [address], Provider Name:Quinton Callahan, 10/15/2024 11:00:00 AM, [address] [place] [address] [address], [place], [address], Progress Notes * Ana ENCINAShDOB:1960 (64 yo M)Acc No.[id number]:09/09/2024 Progress Notes Patient: Zan TONG Provider: Angeles Callahan MD :1960 A ge:64 Y S ex:Male Date:09/09/2024 Address:[address] [place], [place] [phone] Subjective: * Chief Complaints: * R ight [...] after dental work 1986upper endoscopy and colonoscopy, [facility], Dr. Quinton Campos 2009upper endoscopy, [facility], Dr. Quinton Campos, Palmer's esophagus 2014arteriogram right lower extremity 05/2019Right yyhyq-les-ckda amputation 02-04-2024 * Hospitalization/Major Diagno stic Procedure: [...] healthy grandchildren. One of his siblings has Wacznjt-Cobey-Xopcb disease. 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 He was born in [place], [place]. He came to [place] in 1984. He is with 6 children. He has 11 grandchildren. He is a of [employer]. He trained at [employer] and served in [employer]. * Medications: T akingMetoprolol Succinate ER 25 [...] 2 tablets by mouth once daily DiscontinuedNystatin 987597 UNIT/GM Powder 1 application Externally Twice a [...] reviewed and reconciled with the patientDiscontinued Nystatin 811978 UNIT/GM Powder 1 application Externally Twice a [...] endoscopy and was referred back to his radio program checker, Dr. Quinton Campos. 5 . C hronic [...] * Treatment: 2. O thers Referral To:Cardiology [facility] Cardiology Reason:Evaluate and Treat Irregular Heart [...] Callahan MD Date: 09/09/2024 Generated for Tristen bustamante/Jai/Henrry on: 09/23/2024 01:42 PM EDT History and Physical Notes * [...] Referred Provider Not es 09/09/2024 Quinton Callahan [facility], Cardiology Evaluate and Treat Irregular Heart Rate History of A-Fib
--- NOTE | 2024-09-23 13:01 | A.OFFVIS_ITS ---
Intake Visit Reasons: BKA follow up redness per VNA Intake Note: Follow up for increased drainage, pain and redness on Right BKA stump. VNA had called last week w/ concern. Still not healed, changes bandage daily. VNA once per week. 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 He continues to have a persistently open small area on the stump incision line. There was some erythema and drainage which was concerning to visiting nurses. He was subsequently sent in for evaluation [facility] Medical History Osteomyelitis Krish angina Left bundle branch block Bakers cyst Nicotine dependence, cigarettes, uncomplicated Arthritis BPH (benign prostatic hyperplasia) Elevated cholesterol Complex regional pain syndrome i of right lower limb S/P angiogram of extremity (07/18/23) Atrial fibrillation History of Palmer's esophagus Splenic vein thrombosis History of femoral angiogram GERD (gastroesophageal reflux disease) COPD (chronic obstructive pulmonary disease) Peripheral arterial disease Surgical History History of tonsillectomy Hx of oral surgery Hx of tracheostomy History of esophagogastroduodenoscopy (EGD) H/O colonoscopy Social History Household Members: None Household Members Other:: Son, son girlfriend, grandbaby Housing: House Housing Other:: 3 stairs to climb Are you a primary geriatric personal care aide to a significant other at home: No Do you presently have visiting nurse or other home services: Yes Comment: Dr Knott made aware of absent pulse and sensation in right foot Patient Tobacco Use Status: Current everyday Tobacco user Tobacco use type: Cigarette Cigarette Packs Per Day: 0.5 Cigarettes Per Day: 10 Years Smoked: 50 e-Cigarette/Vaping Use: Currently Using Second Hand Smoke Exposure: No Substance Use Type: Marijuana service: No Review of Systems Const All systems reviewed & are unremarkable except as noted in HPI and below Reports no additional complaints ENT Reports Normal hearing present Card Denies chest pain, Denies chest pain at rest, Denies chest pain with activity and Denies pedal edema Resp Denies cough GI Denies abdominal pain Musc Denies abnormal gait, Denies muscle cramps and Denies radiating pain into limb Skin/Breast Denies skin ulcer and Denies wounds Neuro Reports Normal hearing present and Denies abnormal gait Psych Reports no additional complaints Physical Exam Const General: cooperative, healthy appearing and comfortable Orientation/consciousness: oriented to person, oriented to place and oriented to time HEENT Head: Yes normal to inspection Neck Neck: Yes normal visual inspection Carotids: no bruits Chest Chest palpation & inspection: normal inspection of the chest Resp Effort & Inspection: normal respiratory effort and able to speak in complete sentences Auscultation: clear to auscultation bilaterally, no crackles, no rales, no rhonchi and no wheezes Cardio Rate: regular rate Rhythm: regular rhythm Heart sounds: S1 normal heart sound present and S2 normal heart sound present Bruits: no carotid bruits Peripheral pulses: Peripheral pulses 2+ throughout GI Inspection: Yes normal to inspection Skin Other: Right BKA stump 0.3 cm opening. Mild erythema. When probed probes down to bone. Wounds: no wounds Hair: normal Neuro General: oriented to person, oriented to place and oriented to time Cranial nerves: Yes CN's II-XII intact bilaterally and Yes Normal hearing present Cognition (Neuro): normal cognition Motor exam (neuro): 5/5 motor strength present throughout Extrem Other: venous exam: No significant superficial varicosities or spider telangiectasias, minimal edema General: No clubbing, No cyanosis and No edema Psych Appearance: grossly normal Mental Status: mental status grossly normal Speech and movement: Normal speech and movement present Assessment & Plan Assessment & Plan (1) Below-knee amputation of right lower extremity: Code(s): S88.111A - Complete traumatic amputation at level between knee and ankle, right lower leg, initial encounter Category: Medical Qualifiers: Encounter type: subsequent encounter Qualified Code(s): S88.111D - Complete traumatic amputation at level between knee and ankle, right lower leg, subsequent encounter Plan: In short patient has nonhealing BKA stump incision line. The concern here is the exposure of bone. We have tried several conservative measures including long-term IV antibiotics. We will try with p.o. antibiotics to control that and see if it closes over. If not he may need require trip to the operating room for re-resection to resect that portion of bone to allow better healing. This was discussed with him and he was in agreement. He will follow up with us in approximately 2 weeks time. Medications: New cephalexin 500 mg PO BID 20 caps 0RF Coding Level of Care Code Est Pt Level 4 (52873) Diagnoses Below-knee amputation of right lower extremity, subsequent encounter S88.111D Encounter type: subsequent encounter
--- OUTSIDE RECORDS SUMMARY | 2024-09-23 13:43 | XMS_ITS | Clinical Summary ---
Author Organization [facility] Address [address] [place] [address] Phone Care Team Providers Care Proof Technician Name Role Phone Quinton Callahan MD Primary Care Provider [phone] Allergies No known active allergies Medications oxyCODONE-aceta [...] 77 12/08/2023 3:33 PM EDT Temperature 36.9 C (98.5 F) 12/08/2023 3:33 PM EDT Respiratory Rate 16 12/08/2023 3:33 PM EDT [...] age to complete this topic MENINGOCOCCAL VACCINES (B) Aged Out N o longer eligible based on patient's age to complete this topic Medical Devices Implanted Type Area Hay Buckler Device Identifier Shelf Expiration Date Model / Serial / Lot Graft Vascular 6.0mmx60 70cm Propaten Heparin Carmeda Bioactive Surface Thin Wall Removable Ring Stretch - [id number] Implanted:Qty: 1 on 12/02/2023 by Percy Segundo MD at [facility] STANDARD Right: Vein [employer] [id number] 08/13/2026 [id number] / [id number] / Metal Clip Celd Left Groin 10/2023 Stent Right Femoral Artery Patch Pericardium 2cm 9cm Decellularized Bovine [employer] - [id number] Implanted:Qty: 1 on 12/02/2023 by Percy Segundo MD at [facility] Right: Vein [employer] [id number] 03/24/2025 [id number] / / [id number] Procedures Procedure Name Priority Date/Time Associated Diagnosis Comments BASIC METABOLIC PANEL Routine 02/18/2024 8:01 AM EST Aftercare for amputation stump LIPID PANEL Routine 11/28/2023 1:21 AM EDT from Last 3 Months or Most Recently Relevant to Health Maintenance Results * (ABNORMAL) Basic metabolic panel (02/18/2024 8:01 AM EST) SODIUM 137 133 - 146 mmol/L [facility] CHLORIDE 102 96 - 108 mmol/L [facility] POTASSIUM 4.4 3.3 - 5.1 mmol/L [facility] CO2 25 21 - 35 mmol/L [facility] BUN 13 6 - 19 mg/dL [facility] CREATININE 0.70 0.5 - 1.5 mg/dL [facility] GLUCOSE 101(H) 70 - 99 mg/dL [facility] CALCIUM 9.7 8.4 - 10.3 mg/dL [facility] EGFR 102 >59 mL/min/1.7 3m2 [facility] Comment:Estimated glomerular filtration rate calculated using the CKD-EPI refit equation. ANION GAP 14 10 - 20 mmol/L [facility] Blood 02/18/2024 8:01 AM EST 02/18/2024 10:00 AM EST us Garrett Fletcher MD LAB BLOOD ORDERABLES Final Resul t [facility] [address] [place] [address] * Lipid panel (11/28/2023 1:21 AM EDT) CHOLESTEROL 125 <200 mg/dL [facility] TRIGLYCERIDES 60 35 - 150 mg/dL [facility] HDL 60 40 - 80 mg/dL [facility] CALCULATED LDL 53 50 - 129 mg/dL [facility] VLDL 12 <31 mg/dL [facility] CARDIAC RISK RATIO 2.1 0.0 - 4.0 [facility] Blood 11/28/2023 1:21 AM EDT 11/28/2023 1:35 AM EDT us Ayla Owens PA-C LAB BLOOD ORDERABLES Clementina l Result [facility] [address] [place] [id number] from Last 3 Months or Most Recently Relevant to Health Maintenance Insurance [employer] PPO MEDICARE REPLACEMENT MEDICARE PART A & B Member Subscriber Plan / Payer (Ef fective 2023-Present) Name:Zan Encinas Member ID:[id number] Relation to Subscriber:Self Name:Zan Encinas Subscriber ID:[id number] Payer ID:[id number] Group ID:Not on file Type:Medicare Address: [facility] [address] [place] [address] [employer] O MEDICARE REPLACEMENT MEDICARE PART A & B [employer]ET[employer] O MEDICARE REPLACEMENT MEDICARE PART A & B [employer] O MEDICARE REPLACEMENT MEDICARE PART A & B [employer] PPO MEDICARE REPLACEMENT MEDICARE PART A & B [facility] MEDICARE REPLACEMENT MEDICARE PART A & B Advance Directives For more information, please contact: [phone] (9AM - 5PM Swati/[facility], Sunday-Sunday) * Full Code (Latest Code Status on File) Date Activated Date Inactivated Comments 11/27/2023 4:16 PM Question Answer Comments Code Status Confirmed With: Patient Care Teams Proof Technician Relationship Specialty Start Date End Date Quinton Callahan MD [address] [place] [id number] PCP - General Medical Oncology 11/23/23 Additional Source Comments The information contained in this document represents components of the legal health record. It is not the complete legal health record.[facility]
--- OUTSIDE RECORDS SUMMARY | 2024-09-23 13:43 | XMS_ITS | Data Portability ---
Author Organization [facility], Main Office Address [address] [place] [address] [address] [place] [address] Care Team Providers Care Corrections Unit Supervisor Name Role Phone [facility] OTHER KEON HERDEIA Primary Care Provider Assessment Encounter Date Assessment [...] Organization Details Recorded Time Blood in urine 00344100 Active [address], [address], [place], [address], [email or web address] 4 10:17:42 Benign prostatic hyperplasia 887620595 Active [address], [address], [place], [address], [email or web address] 4 10:17:40 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 [address], [address], [place], [address], [email or web address] 4 10:18:23 Limb ischemia 8621165142450 5 Active [address], [address], [place], [address], [email or web address] 4 10:19:49 Peripheral arterial disease 233243912 Active [address], [address], [place], [address], [email or web address] 4 10:21:45 Chronic obstructive pulmonary disease 75847239 Active [address], [address], [place], [address], [email or web address] 4 10:22:55 Gastroesoph ageal reflux disease 949968467 Active [address], [address], [place], [address], [email or web address] 4 10:23:11 Smoker 92681721 Active [address], [address], [place], [address], [email or web address] 4 10:23:08 Essential hypertensio n 07659085 Active [address], [address], [place], [address], [email or web address] 4 10:25:41 Hyperlipide angela 50019298 Active 2023 Yvonne Belcher [address], [address], [place], [address], [email or web address] 4 10:49:02 Peripheral vascular disease 089014362 Active 2023 Yvonne Belcher [address], [address], [place], [address], [email or web address] 4 10:49:07 Thrombosis of splenic artery 7538568099818 9106 Active 2023 Yvonne Belcher [address], [address], [place], [address], [email or web address] 4 10:49:17 Left bundle branch block 72113202 Active 2023 Yvonne Belcher [address], [address], [place], [address], [email or web address] 4 10:49:21 Palmer's esophagus 435019005 Active 2023 Yvonne Belcher [address], [address], [place], [address], [email or web address] 4 10:50:44 Problem Notes None recorded. 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 Yes Information not available 02/11/2024 What [...] (COVID-19) vaccine, UNSPECIFIED 06/25/2020 completed Nikia Montes [facility] 02/11/2024 12:20:14 SARS-COV-2 (COVID-19) vaccine, UNSPECIFIED 07/27/2020 completed Nikia Montes [facility] 02/11/2024 12:20:24 Past Encounters Encounter ID Performer Location Encounter Start Date Encounter Closed Date Diagnosis/Indication Diagnosis SNOMED-CT Code Diagnosis ICD10 Code Diagnosis Note [id number] SAMANTHA CONK[facility] AT [address] [address] 02/10/2024 10:12:50 02/11/2024 14:36:04 Limb ischemia 4206656940 9105 I99.8 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 s/p R SFA - bk popliteal bypass with vein ([place], 07/2023)con tinue oxycodone 10 mg TID PRNgabapen tin 400 mg QID PRN (odd, would make scheduled) monitor pain controlPT/ OT eval and treatfollo w up with surgeon in 2 weeksshrin ker to be placed once healed- add abd and celeste daily due to bleeding Peripheral arterial insufficiency 8481360057 59700 I73.9 see aboveASA 81 mg dailyfollo wed by vascular Benign pro static hyperplasia 738202683 N40.0 continue flomax 0.8 mg qhsmonitor for outflow issues Gastroesop hageal reflux disease 980735543 K21.9 pantoprazo le 80 mg dailyconsi lia reduction if toleratesm onitor reflux Blood in urine 75010239 R31.9 had inpatientm onitor for clearing Chronic ob structive pulmonary disease 05353993 J44.9 albuterol PRNincruse dailywixel a BIDmonitor resp status Essential hypertension 57498205 I10 assumed as pt is on metoprolol 25 mg daily but no documented [facility] to keep Constipation 58896578 K5 9.00 add colace 100 mg BIDmonitor for improvemen t [id number] Iveth Diaz MD [facility] AT [address] [address] 02/11/2024 15:43:03 02/12/2024 15:32:16 Limb ischemia 9887081912 9105 I99.8 Will change oxycodone to 10 [...] with surgeon as planned. Peripheral arterial insufficiency 5172815094 09735 I73.89 Z89.511 As above. Benign pro static hyperplasia 612297672 N40.0 No current sxs.Contin ue tamsulosin 0.8 mg qhsMonitor urinary function Gastroesop hageal reflux disease 340660619 K21.9 No current sxs.Contin ue pantoprazo le 80 mg qdMonitor GI sxs. Blood in urine 60456547 R31.0 Had one episode inpt.Now resolved.M onitor for recurrence . Chronic ob structive pulmonary disease 37262498 J43.8 Resp status good at this time.Liv nue incruse ellipta qd, Wixela 500/50 BID, duonebs BID prn and albuterol MDI 2 puffs q 4 hrs prn.Monito r resp status. Essential hypertension 74631399 I10 In good control since here (HTN is on PCP problem list)Liv nue metoprolol 25 mg qdMonitor BP and labs. Constipation 11308057 K5 9.03 Will add miralax 17 gms qd and continue colace 100 mg BIDUse prn meds if needed.Mon itor bowel function. [id number] Nam CONKLIN AT [address] [address] 02/15/2024 10:31:46 02/18/2024 15:29:05 Postoperative wound cellulitis 931709563 L76.82 exam concerning for cellulitis with increased foul smelling discharges tart doxycyclin e 100mg BID x 10 days, probiotic qd x 14 dayscheck CBC w/diff, BMP ll obtain x-ray R stump r/o osteomonit or for worsening sxs Amputated below knee 299 533241 Z89.519 As above. Limb ischemia 0331099254 9105 I99.8 continue oxycodone to 10 mg q 6 hrs scheduled x 7 days, then 10 mg q 8 hrs scheduled x 7 days then 5 mg q 8 hrs prn.Add oxycodone 10mg q24h prn breakthrou gh paincontin ue APAP 975 mg TID and increase gabapentin to 600 mg TID.Contin ue ASA 81 mg qdF/U with surgeon as planned. [id number] Nam CONKLIN AT [address] [address] 02/19/2024 07:36:20 02/21/2024 12:23:04 Postoperative wound cellulitis 760756849 L76.82 Continue doxycyclin e 100mg BID x 10 days, probiotic qd x 14 dayslabs and x-ray unremarkab lemonitor for resolution Limb ischemia 6634930898 9105 I99.8 continue oxycodone 10 mg q 8 hrs scheduled x 7 days then 5 mg q 8 hrs prn. oxycodone 10mg q24h prn breakthrou gh paincontin ue APAP 975 mg TID and gabapentin to 600 mg qam and afternoon, 900mg qhsContinu e ASA 81 mg qdconsult PMR management of painF/U with surgeon as planned. Amputated below knee 299 741051 Z89.519 As above. [id number] Nam CONKLIN AT [address] [address] 02/22/2024 09:19:49 02/25/2024 15:55:50 Postoperative wound cellulitis 359798655 L76.82 Continue doxycyclin e 100mg BID x 10 days, probiotic qd x 14 dayslabs and x-ray unremarkab lemonitor for resolution Limb ischemia 4810082115 9105 I99.8 continue oxycodone 10 mg q 8 hrs scheduled x 7 days then 5 mg q 8 hrs prn. oxycodone 10mg q24h prn breakthrou gh paincontin ue APAP 975 mg TID and gabapentin to 600 mg qam and afternoon, 900mg qhsContinu e ASA 81 mg qdconsult PMR management of painF/U with surgeon as planned. Amputated below knee 299 851341 Z89.519 As above. [id number] Nam CONKLIN AT [address] [address] 02/25/2024 07:30:39 02/26/2024 13:58:50 Postoperative wound cellulitis 497898011 L76.82 resolvedmo nitor for recurrence Limb ischemia 9831604695 9105 I99.8 continue oxycodone 10 mg q 8 hrs scheduled x 7 days then 5 mg q 8 hrs prn. oxycodone 10mg BID prn breakthrou gh paincontin ue APAP 975 mg TID, INcrease gabapentin to 900 mg qam and afternoon, 900mg qhsContinu e ASA 81 mg qdconsult PMR management of painF/U with surgeon as planned. Amputated below knee 299 916037 Z89.519 As above. [id number] Nam CONKLIN AT [address] [address] 02/28/2024 08:43:00 02/29/2024 10:22:21 Limb ischemia 1935771304 9105 I99.8 continue oxycodone 10 mg q 8 hrs scheduled x 7 days then 5 mg q 8 hrs prn. oxycodone 10mg BID prn breakthrou gh paincontin ue APAP 975 mg TID, gabapentin to 900 mg TIDContinu e ASA 81 mg qdconsult PMR management of painF/U with surgeon as planned. Amputated below knee 299 051714 Z89.519 As above. [id number] MD RUBIN Enciso AT [address] [address] 03/03/2024 11:24:29 03/27/2024 10:48:50 Limb ischemia 4899993748 9105 I99.8 s/p amputation cleared for discharge with services and ortho f/u in placedisch arged on oxycodone 5 mg q 8 prn pain #23 tablets given at time of dischargep atient will need appointmen t with PCP for f/u discussed with nursing to schedule prior to discharge Amputated below knee 299 057741 Z89.519 As above. Health Concerns Section Related Observation LastModified by Organization Detai ls LastModified Time None Recorded Concern Status LastModified by Organization Details LastModified Time None Recorded Advance Directives Directive Y: Payers Insurance Date Sequence Insurance Name Policy Number Policy Matute Covered Member ID Matute Member ID Guarantor Name 03/27/2024 1 [employer] (MEDICARE REPLACEMENT/ ADVANTAGE - PPO) [id number] Zan Encinas [id number] Zan Encinas
== END 2024-09-23 13:32 | disposition home or self-care (01) ==
LOC: HO.HVS 12:56
PROVIDERS: PCP Internal Medicine Medical Oncology; Visit Provider Surgery Vascular Surgery
DX: S88.111D Complete traumatic amputation at level between knee and ankle, right lower leg, subsequent encounter (principal)
CPT/HCPCS: 99214

== ENCOUNTER → 2024-09-23 12:56 | Outpatient (BNVA) | payer MEDICARE, SELFPAY | PROVIDERS: PCP Internal Medicine Medical Oncology; Visit Provider Surgery Vascular Surgery | DX: S88.111A Complete traumatic amputation at level between knee and ankle, right lower leg, initial encounter (principal) | CPT/HCPCS: 99212 ==

== ENCOUNTER 2024-10-07 13:01 | Outpatient (AMB) | payer MEDICARE, SELFPAY ==
--- OUTSIDE RECORDS SUMMARY | 2023-08-14 06:30 | XMS_ITS ---
Author Organization [facility] Address [address] [place] [address] Care Team Providers Care Investment Banking Manager Name Role Phone Quinton Callahan MD Primary Care Provider Unavailab Quinton Alvarez [phone] REASON FOR VISIT Patient presents today for EGD, NUGENT'S ESOPHAGUS Encounters Encounter Location Date Provider Diagnosis [facility] [address] [facility] [address] [place] [address] 08/14/2023 Quinton Campos Plan Of Treatment Next Appt Details Provider Name:Quinton Campos , 02/04/2025 01:00:00 PM, [address], [address], [place], [address], Progress Notes * ANGELA HERNANDEZOB:1960 (64 yo M)Acc No.[id number]:08/14/2023 Progress Notes Patient: JUAN FRANCISCO TONG Provider: Angeles Campos MD :1960 A ge:63 Y S ex:Male Date:08/14/2023 Address:[address] [place] [address] [place] Pcp:Quinton Callahan MD Subjective: * Chief Complaints: [...] 08/14/2023 Generated for Tristen bustamante/Jai/Allysonitting on: 0 10/07/2024 01:49 PM EDT
--- OUTSIDE RECORDS SUMMARY | 2024-09-09 07:30 | XMS_ITS ---
Author Organization Quinton Callahan III, MD Address [address] [place] [address] Care Team Providers Care Conservation Science Officer Name Role Phone Quinton Callahan Primary Care [...] Provider Speciality Internal M edicine Referred Provider [facility] er, Cardiology Referred Provider Specialty Cardiology General Notes DLuz 09/22/2024 11:10:39 AM > Faxed referral with progress note Referral Priority Routine REASON FOR VISIT Right below the knee [...] Date Provider Diagnosis Quinton Callahan III, MD [address] [place] [address] [place] [address] 09/09/2024 Quinton Callahan Irregular heart rate I49.9 [...] endoscopy and was referred back to his car usher, Dr. Quinton Campos. 09/09/2024 Chronic obstructive pulmonary [...] Irregular Heart Rate History of A-Fib, Cardiology [facility] Next Appt Details Follow Up: 3 Weeks, Reason: OV Provider Name:Quinton London, 10/29/2024 02:30:00 PM, [address] [place] [address] [address], [place], [address], Provider Name:Quinton Callahan, 02/04/2025 02:00:00 PM, [address] [place] [address] [address], [place], [address], Progress Notes * Ana ENCINAShDOB:1960 (64 yo M)Acc No.[id number]:09/09/2024 Progress Notes Patient: Zan TONG Provider: Angeles Callahan MD :1960 A ge:64 Y S ex:Male Date:09/09/2024 Address:[address] [place], [place] [id number] Subjective: * Chief Complaints: * R ight [...] after dental work 1986upper endoscopy and colonoscopy, [facility], Dr. Quinton Campos 2009upper endoscopy, [facility], Dr. Quinton Campos, Palmer's esophagus 2014arteriogram right lower extremity 05/2019Right ecehp-irk-cqzm amputation 02-04-2024 * Hospitalization/Major Diagno stic Procedure: [...] healthy grandchildren. One of his siblings has Fcacutk-Nzvln-Jndzj disease. 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 He was born in [place], [place]. He came to [place] in 1984. He is with 6 children. He has 11 grandchildren. He is a of [employer]. He trained at [employer] and served in [employer]. * Medications: T akingMetoprolol Succinate ER 25 [...] 2 tablets by mouth once daily DiscontinuedNystatin 455501 UNIT/GM Powder 1 application Externally Twice a [...] reviewed and reconciled with the patientDiscontinued Nystatin 018313 UNIT/GM Powder 1 application Externally Twice a [...] endoscopy and was referred back to his car usher, Dr. Quinton Campos. 5 . C hronic [...] * Treatment: 2. O thers Referral To:Cardiology [facility] Cardiology Reason:Evaluate and Treat Irregular Heart Rate [...] MD Date: 0 09/09/2024 Generated for Tristen bustamante/Jai/Henrry on: 0 10/07/2024 01:49 PM EDT History and Physical Notes * [...] Referral Date Referring Provider Referred Provider Not es 09/09/2024 Quinton Callahan [facility], Cardiology Evaluate and Treat Irregular Heart Rate History of A-Fib
--- NOTE | 2024-10-07 13:02 | MHC.OFFVIS ---
Intake Visit Reasons: 2 week stump check Intake Note: 2 week follow up Right BKA incision that is slow to heal. Pt states he completed Abx and pain has reduced but still has pinhole w/ drainage. Accompanied by: Self / Same As Patient Allergies No Known Allergies Allergy (Verified 10/07/24 13:04) HPI HPI 2 week stump check: Details: Very pleasant 64-year-old gentleman presents for follow-up regarding his right BKA. He has been on antibiotics. He has a persistent small draining sinus in the middle that incision measuring a proximally 2 cm in diameter. When probed it does have exposed bone underlying. He now presents for routine follow-up. [facility] Medical History Osteomyelitis Krish angina Left bundle branch block Bakers cyst Nicotine dependence, cigarettes, uncomplicated Arthritis BPH (benign prostatic hyperplasia) Elevated cholesterol Complex regional pain syndrome i of right lower limb S/P angiogram of extremity (07/18/23) Atrial fibrillation History of Palmer's esophagus Splenic vein thrombosis History of femoral angiogram GERD (gastroesophageal reflux disease) COPD (chronic obstructive pulmonary disease) Peripheral arterial disease Surgical History History of tonsillectomy Hx of oral surgery Hx of tracheostomy History of esophagogastroduodenoscopy (EGD) H/O colonoscopy Social History Household Members: None Household Members Other:: Son, son girlfriend, grandbaby Housing: House Housing Other:: 3 stairs to climb Are you a primary director medicare sales to a significant other at home: No Do you presently have visiting nurse or other home services: Yes Comment: Dr Knott made aware of absent pulse and sensation in right foot Patient Tobacco Use Status: Current everyday Tobacco user Tobacco use type: Cigarette Cigarette Packs Per Day: 0.5 Cigarettes Per Day: 10 Years Smoked: 50 e-Cigarette/Vaping Use: Currently Using Second Hand Smoke Exposure: No Substance Use Type: Marijuana service: No Review of Systems Const All systems reviewed & are unremarkable except as noted in HPI and below Reports no additional complaints ENT Reports Normal hearing present Card Denies chest pain, Denies chest pain at rest, Denies chest pain with activity and Denies pedal edema Resp Denies cough GI Denies abdominal pain Musc Denies abnormal gait, Denies muscle cramps and Denies radiating pain into limb Skin/Breast Denies skin ulcer and Denies wounds Neuro Reports Normal hearing present and Denies abnormal gait Psych Reports no additional complaints Physical Exam Const General: cooperative, healthy appearing and comfortable Orientation/consciousness: oriented to person, oriented to place and oriented to time HEENT Head: Yes normal to inspection Neck Neck: Yes normal visual inspection Carotids: no bruits Chest Chest palpation & inspection: normal inspection of the chest Resp Effort & Inspection: normal respiratory effort and able to speak in complete sentences Auscultation: clear to auscultation bilaterally, no crackles, no rales, no rhonchi and no wheezes Cardio Rate: regular rate Rhythm: regular rhythm Heart sounds: S1 normal heart sound present and S2 normal heart sound present Bruits: no carotid bruits Peripheral pulses: Peripheral pulses 2+ throughout GI Inspection: Yes normal to inspection Skin Other: Right BKA stump 2 cm opening. Wounds: amputation site Hair: normal Neuro General: oriented to person, oriented to place and oriented to time Cranial nerves: Yes CN's II-XII intact bilaterally and Yes Normal hearing present Cognition (Neuro): normal cognition Motor exam (neuro): 5/5 motor strength present throughout Extrem Other: venous exam: No significant superficial varicosities or spider telangiectasias, minimal edema General: No clubbing, No cyanosis and No edema Psych Appearance: grossly normal Mental Status: mental status grossly normal Speech and movement: Normal speech and movement present Assessment & Plan Assessment & Plan (1) Below-knee amputation of right lower extremity: Code(s): S88.111A - Complete traumatic amputation at level between knee and ankle, right lower leg, initial encounter Category: Medical Qualifiers: Encounter type: subsequent encounter Qualified Code(s): S88.111D - Complete traumatic amputation at level between knee and ankle, right lower leg, subsequent encounter Plan: In short patient has nonhealing right below-knee amputation. He will require revision of the right below-knee amputation. Risks benefits complications including but not limited to bleeding infection nonhealing were discussed in detail with the patient. He understood would like to move forward. We will try to schedule as soon as possible. Thank you for allowing us to assist in his care. Coding Level of Care Code Est Pt Level 4 (15695) Diagnoses Below-knee amputation of right lower extremity, subsequent encounter S88.111D Encounter type: subsequent encounter
--- OUTSIDE RECORDS SUMMARY | 2024-10-07 13:49 | XMS_ITS | Clinical Summary ---
Author Organization [facility] Address [address] [place] [phone] Phone Care Team Providers Care Registered Medical Transcriptionist Name Role Phone Quinton Callahan MD Primary Care Provider [phone]- [phone] Allergies No known active allergies Medications oxyCODONE-aceta [...] this topic Medical Devices Implanted Type Area Train Director Device Identifier Shelf Expiration Date Model / Serial / Lot Graft Vascular 6.0mmx60 70cm Propaten Heparin Carmeda Bioactive Surface Thin Wall Removable Ring Stretch - [id number] Implanted:Qty: 1 on 12/02/2023 by Percy Segundo MD at [facility] STANDARD Right: Vein [employer] [id number] 08/13/2026 [id number] / [id number] / Metal Clip Celd Left Groin 10/2023 Stent Right Femoral Artery Patch Pericardium 2cm 9cm Decellularized Bovine Photofix - [id number] Implanted:Qty: 1 on 12/02/2023 by Percy Segundo MD at [facility] Right: Vein [employer] [id number] 03/24/2025 [id number] / / [id number] Procedures Procedure Name Priority Date/Time Associated Diagnosis Comments BASIC METABOLIC PANEL Routine 02/18/2024 8:01 AM EST Aftercare for amputation stump LIPID PANEL Routine 11/28/2023 1:21 AM EDT from Last 3 Months or Most Recently Relevant to Health Maintenance Results * (ABNORMAL) Basic metabolic panel (02/18/2024 8:01 AM EST) SODIUM 137 133 - 146 mmol/L [facility] CHLORIDE 102 96 - 108 mmol/L [facility] POTASSIUM 4.4 3.3 - 5.1 mmol/L [facility] CO2 25 21 - 35 mmol/L [facility] BUN 13 6 - 19 mg/dL [facility] CREATININE 0.70 0.5 - 1.5 mg/dL [facility] GLUCOSE 101(H) 70 - 99 mg/dL [facility] CALCIUM 9.7 8.4 - 10.3 mg/dL [facility] EGFR 102 >59 mL/min/1.7 3m2 [facility] Comment:Estimated glomerular filtration rate calculated using the CKD-EPI refit equation. ANION GAP 14 10 - 20 mmol/L [facility] Blood 02/18/2024 8:01 AM EST 02/18/2024 10:00 AM EST us Garrett Fletcher MD LAB BLOOD ORDERABLES Final Resul t [facility] [address] [place] [address] * Lipid panel (11/28/2023 1:21 AM EDT) CHOLESTEROL 125 <200 mg/dL [facility] TRIGLYCERIDES 60 35 - 150 mg/dL [facility] HDL 60 40 - 80 mg/dL [facility] CALCULATED LDL 53 50 - 129 mg/dL [facility] VLDL 12 <31 mg/dL [facility] CARDIAC RISK RATIO 2.1 0.0 - 4.0 [facility] Blood 11/28/2023 1:21 AM EDT 11/28/2023 1:35 AM EDT us Ayla Owens PA-C LAB BLOOD ORDERABLES Clementina l Result [facility] [address] [place] [address] from Last 3 Months or Most Recently Relevant to Health Maintenance Insurance [employer] PPO MEDICARE REPLACEMENT MEDICARE PART A & B Member Subscriber Plan / Payer (Ef fective 2023-Present) Name:Zan Encinas Member ID:[id number] Relation to Subscriber:Self Name:Zan Encinas Subscriber ID:[id number] Payer ID:[id number] Group ID:Not on file Type:Medicare Address: [facility] [employer] [facility] [address] [place] [address] AET[employer] O MEDICARE REPLACEMENT MEDICARE PART A & B AET[employer] O MEDICARE REPLACEMENT MEDICARE PART A & B AET[employer] O MEDICARE REPLACEMENT MEDICARE PART A & B [employer] PPO MEDICARE REPLACEMENT MEDICARE PART A & B [facility] MEDICARE REPLACEMENT MEDICARE PART A & B Advance Directives For more information, please contact: [phone] (9AM - 5PM Swati/[facility], Sunday-Sunday) * Full Code (Latest Code Status on File) Date Activated Date Inactivated Comments 11/27/2023 4:16 PM Question Answer Comments Code Status Confirmed With: Patient Care Teams Registered Medical Transcriptionist Relationship Specialty Start Date End Date Quinton Callahan MD [address] [place] [phone] PCP - General Medical Oncology 11/23/23 Additional Source Comments The information contained in this document represents components of the legal health record. It is not the complete legal health record.[facility]
== END 2024-10-07 13:28 | disposition home or self-care (01) ==
LOC: HO.HVS 13:01
PROVIDERS: PCP Internal Medicine Medical Oncology; Visit Provider Surgery Vascular Surgery
DX: T87.89 Other complications of amputation stump (principal); Z89.511 Acquired absence of right leg below knee
CPT/HCPCS: 99214

== ENCOUNTER → 2024-10-07 13:01 | Outpatient (BNVA) | payer MEDICARE, SELFPAY | PROVIDERS: PCP Internal Medicine Medical Oncology; Visit Provider Surgery Vascular Surgery | DX: Z89.511 Acquired absence of right leg below knee (principal) | CPT/HCPCS: 99212 ==

== ENCOUNTER 2024-10-10 09:06 | Day surgery (SDC) | payer MEDICARE, SELFPAY ==
--- OUTSIDE RECORDS SUMMARY | 2023-08-14 06:30 | XMS_ITS ---
Author Organization [facility] Address [address] [place] [address] Care Team Providers Care Associate Name Role Phone Quinton Callahan MD Primary Care Provider Unavailab Quinton Alvarez [phone] REASON FOR VISIT Patient presents today for EGD, NUGENT'S ESOPHAGUS Encounters Encounter Location Date Provider Diagnosis [facility] [address] [facility] [address] [place] [address] 08/14/2023 Quinton Campos Plan Of Treatment Next Appt Details Provider Name:Quinton Campos , 02/04/2025 01:00:00 PM, [address], [address], [place], [address], Progress Notes * ANGELA HERNANDEZOB:1960 (64 yo M)Acc No.[id number]:08/14/2023 Progress Notes Patient: JUAN FRANCISCO TONG Provider: Angeles Campos MD :1960 A ge:63 Y S ex:Male Date:08/14/2023 Address:[address] [place] [address] [place] Pcp:Quinton Callahan MD Subjective: * Chief Complaints: [...] 08/14/2023 Generated for Tristen bustamante/Jai/Allysonitting on: 0 10/08/2024 07:04 AM EDT
--- OUTSIDE RECORDS SUMMARY | 2024-09-09 07:30 | XMS_ITS ---
Author Organization Quinton Callahan III, MD Address [address] [place] [address] Care Team Providers Care Gas Load Dispatcher Name Role Phone Quinton Callahan Primary Care Provider [phone] Allergies Allergen (clinical drug ingredient) Drug/Non Drug [...] Provider Speciality Internal M edicine Referred Provider [facility] er, Cardiology Referred Provider Specialty Cardiology [...] Provider Diagnosis Quinton Callahan III, MD [address] [place] [address] [place] [address] 09/09/2024 Quinton Callahan Irregular heart rate I49.9 [...] endoscopy and was referred back to his chimney repairer, Dr. Quinton Campos. 09/09/2024 Chronic obstructive pulmonary [...] Irregular Heart Rate History of A-Fib, Cardiology [facility] Next Appt Details Follow Up: 3 Weeks, Reason: OV Provider Name:Quinton London, 10/29/2024 02:30:00 PM, [address] [place] [address] [address], [place], [address], Provider Name:Quinton Callahan, 02/04/2025 02:00:00 PM, [address] [place] [address] [address], [place], [address], Progress Notes * Ana ENCINAShDOB:1960 (64 yo M)Acc No.[id number]:09/09/2024 Progress Notes Patient: Zan TONG Provider: Angeles Callahan MD :1960 A ge:64 Y S ex:Male Date:09/09/2024 Address:[address] [place], [place] [phone] Subjective: * Chief Complaints: * R ight [...] after dental work 1986upper endoscopy and colonoscopy, [facility], Dr. Quinton Campos 2009upper endoscopy, [facility], Dr. Quinton Campos, Palmer's esophagus 2014arteriogram right lower extremity 05/2019Right scshg-eab-eugh amputation 02-04-2024 * Hospitalization/Major Diagno stic Procedure: [...] healthy grandchildren. One of his siblings has Xjbxrcd-Ewfsr-Erohi disease. 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 He was born in [place], [place]. He came to [place] in 1984. He is with 6 children. He has 11 grandchildren. He is a of [employer]. He trained at [place] and served in [employer]. * Medications: T akingMetoprolol Succinate ER 25 [...] 2 tablets by mouth once daily DiscontinuedNystatin 149327 UNIT/GM Powder 1 application Externally Twice a [...] reviewed and reconciled with the patientDiscontinued Nystatin 689800 UNIT/GM Powder 1 application Externally Twice a [...] endoscopy and was referred back to his chimney repairer, Dr. Quinton Campos. 5 . C hronic [...] * Treatment: 2. O thers Referral To:Cardiology [facility] Cardiology Reason:Evaluate and Treat Irregular Heart [...] 09/09/2024 Generated for Tristen bustamante/Jai/Henrry on: 0 10/08/2024 07:04 AM EDT History and Physical Notes * HPI [...] Referred Provider Not es 09/09/2024 Quinton Callahan [facility], Cardiology Evaluate and Treat Irregular Heart Rate History of A-Fib
--- OUTSIDE RECORDS SUMMARY | 2024-10-08 07:04 | XMS_ITS | Clinical Summary ---
Author Organization [facility] Address [address] [place] [address] Phone Care Team Providers Care Tensioning Machine Operator Name Role Phone Quinton Callahan MD Primary Care Provider +1- [phone] Allergies No known active allergies Medications oxyCODONE-aceta [...] this topic Medical Devices Implanted Type Area Bridal Service Sales And Management Device Identifier Shelf Expiration Date Model / Serial / Lot Graft Vascular 6.0mmx60 70cm Propaten Heparin Carmeda Bioactive Surface Thin Wall Removable Ring Stretch - [id number] Implanted:Qty: 1 on 12/02/2023 by Percy Segundo MD at [facility] STANDARD Right: Vein [employer] [id number] 08/13/2026 [id number] / [id number] / Metal Clip Celd Left Groin 10/2023 Stent Right Femoral Artery Patch Pericardium 2cm 9cm Decellularized Bovine Photofix - [id number] Implanted:Qty: 1 on 12/02/2023 by Percy Segundo MD at [facility] Right: Vein [employer] [id number] 03/24/2025 [id number] / / [id number] Procedures Procedure Name Priority Date/Time Associated Diagnosis Comments BASIC METABOLIC PANEL Routine 02/18/2024 8:01 AM EST Aftercare for amputation stump LIPID PANEL Routine 11/28/2023 1:21 AM EDT from Last 3 Months or Most Recently Relevant to Health Maintenance Results * (ABNORMAL) Basic metabolic panel (02/18/2024 8:01 AM EST) SODIUM 137 133 - 146 mmol/L [facility] CHLORIDE 102 96 - 108 mmol/L [facility] POTASSIUM 4.4 3.3 - 5.1 mmol/L [facility] CO2 25 21 - 35 mmol/L [facility] BUN 13 6 - 19 mg/dL [facility] CREATININE 0.70 0.5 - 1.5 mg/dL [facility] GLUCOSE 101(H) 70 - 99 mg/dL [facility] CALCIUM 9.7 8.4 - 10.3 mg/dL [facility] EGFR 102 >59 mL/min/1.7 3m2 [facility] Comment:Estimated glomerular filtration rate calculated using the CKD-EPI refit equation. ANION GAP 14 10 - 20 mmol/L [facility] Blood 02/18/2024 8:01 AM EST 02/18/2024 10:00 AM EST us Garrett Fletcher MD LAB BLOOD ORDERABLES Final Resul t [facility] [address] [place] [address] * Lipid panel (11/28/2023 1:21 AM EDT) CHOLESTEROL 125 <200 mg/dL [facility] TRIGLYCERIDES 60 35 - 150 mg/dL [facility] HDL 60 40 - 80 mg/dL [facility] CALCULATED LDL 53 50 - 129 mg/dL [facility] VLDL 12 <31 mg/dL [facility] CARDIAC RISK RATIO 2.1 0.0 - 4.0 [facility] Blood 11/28/2023 1:21 AM EDT 11/28/2023 1:35 AM EDT us Ayla Owens PA-C LAB BLOOD ORDERABLES Clementina l Result [facility] [address] [place] [address] from Last 3 Months or Most Recently Relevant to Health Maintenance Insurance [employer] PPO MEDICARE REPLACEMENT MEDICARE PART A & B AETNA O MEDICARE REPLACEMENT MEDICARE PART A & B AETNA O MEDICARE REPLACEMENT MEDICARE PART A & B AETNA O MEDICARE REPLACEMENT MEDICARE PART A & B [employer] PPO MEDICARE REPLACEMENT MEDICARE PART A & B [facility] MEDICARE REPLACEMENT MEDICARE PART A & B Advance Directives For more information, please contact: [phone] (9AM - 5PM Swati/[facility], Sunday-Sunday) * Full Code (Latest Code Status on File) Date Activated Date Inactivated Comments 11/27/2023 4:16 PM Question Answer Comments Code Status Confirmed With: Patient Care Teams Tensioning Machine Operator Relationship Specialty Start Date End Date Quinton Callahan MD [address] [place] [phone] PCP - General Medical Oncology 11/23/23 Additional Source Comments The information contained in this document represents components of the legal health record. It is not the complete legal health record.[facility]
--- NOTE | 2024-10-08 15:03 | HO.ANESPROP2 ---
Documented by User: Gill Shepherd NP 10/09/24 10:37 HPI - Anesthesia Eval Consult details Narrative: 64yo M for Right Leg Amputation Below Knee REVISION s/p amp 01/2024 with GA-LMA 5 s/p fem pop 07/2023 (cardiac optimized prior) [facility] Cardiology eval and optimization prior to fem pop - testing ok and no further f/u with cardiology ? afib in the past - no anticoag, no previous documented occurence PMFSH Active Problems Active Problems: All Active Problems Osteomyelitis (Acute) Hematuria (Acute) Below-knee amputation of right lower extremity (Acute) Renal cyst (Acute) Encounter for preoperative pulmonary examination (Acute) Preop cardiovascular exam (Acute) Chronic pain syndrome (Acute) BPH (benign prostatic hyperplasia) (Acute) Past Medical History Medical History Osteomyelitis Krish angina Left bundle branch block Bakers cyst Nicotine dependence, cigarettes, uncomplicated Arthritis BPH (benign prostatic hyperplasia) Elevated cholesterol Complex regional pain syndrome i of right lower limb S/P angiogram of extremity (07/18/23) Atrial fibrillation History of Palmer's esophagus Splenic vein thrombosis History of femoral angiogram GERD (gastroesophageal reflux disease) COPD (chronic obstructive pulmonary disease) Peripheral arterial disease Family History Family history of problems with anesthesia: No Surgical History Surgical History (Updated 10/09/24 @ 10:20 by Karolina Ramachandran LPN) Hx of BKA History of tonsillectomy Hx of oral surgery Hx of tracheostomy History of esophagogastroduodenoscopy (EGD) H/O colonoscopy History of Problems with Anesthesia: No Social History Social History Household Members: None Household Members Other:: Son, son girlfriend, grandbaby Housing: House Housing Other:: 3 stairs to climb Are you a primary chronic care nurse to a significant other at home: No Do you presently have visiting nurse or other home services: Yes Comment: Dr Knott made aware of absent pulse and sensation in right foot Patient Tobacco Use Status: Current everyday Tobacco user Tobacco use type: Cigarette Cigarette Packs Per Day: 1 Cigarettes Per Day: 20.0 Years Smoked: 50 e-Cigarette/Vaping Use: Currently Using Second Hand Smoke Exposure: No Use of substances other than those prescribed or required for medical reasons: Yes Substance Use Type: Marijuana Are you DNR?: No Advance Directives: No Advance Directives Information Provided: Yes Poor oral hygiene: No service: No Meds Allergies Allergy/AdvReac Type Severity Reaction Status Date / Time No Known Allergies Allergy Verified 10/07/24 13:04 Home Medications ?Medication ?Instructions ?Recorded ?Confirmed ?Last Taken ?Type aspirin 81 mg tablet,delayed 81 mg PO DAILY 01/12/20 10/10/24 05/26/24 History release (Luis Low Dose Aspirin) pantoprazole 40 mg tablet,delayed 80 mg PO DAILY@0630 01/12/20 10/10/24 05/26/24 History release tamsulosin 0.4 mg capsule 0.8 mg PO DAILY 01/12/20 10/10/24 05/26/24 History atorvastatin 10 mg tablet 10 mg PO DAILY 05/04/20 10/10/24 05/26/24 History xlqnfzrq-ow-pzqdk 300 mcg-K 60 1 tab PO DAILY 10/02/23 10/10/24 05/26/24 History mcg-lycop 600 mcg-lutein 300 mcg tablet (Centrum Silver Men) metoprolol succinate 25 mg 25 mg PO DAILY 12/17/23 10/10/24 05/26/24 History tablet,extended release 24 hr albuterol sulfate 90 mcg/actuation 2 puff inhalation Q4H PRN 01/07/24 10/10/24 Unknown History aerosol inhaler shortness of breath or wheezing fluticasone 500 mcg-salmeterol 50 1 inh inhalation BID 05/26/24 10/10/24 05/26/24 History mcg/dose blistr powdr for inhalation (Wixela Inhub) gabapentin 300 mg capsule 300 mg PO QID 05/26/24 10/10/24 10/10/24 History acetaminophen 500 mg tablet 1,000 mg PO Q6H PRN Pain 10/07/24 10/10/24 Unknown History (Tylenol Extra Strength) ibuprofen 200 mg capsule 400 mg PO Q6H 10/07/24 10/10/24 Unknown History Exam Narrative Narrative: EKG 12/2023 Vent. Rate : 118 BPM Atrial Rate : 118 BPM P-R Int : 136 ms QRS Dur : 142 ms QT Int : 372 ms P-R-T Axes : 000 -02 141 degrees QTc Int : 521 ms Sinus tachycardia Left bundle branch block Abnormal ECG When compared with ECG of 10-JAN-2024 08:19, Premature supraventricular complexes are no longer Present Vent. rate has increased BY 40 BPM ECHO 2023 Conclusions: - Normal left ventricular size, thickness, and systolic function. The visually estimated ejection fraction is between 55-60%. - Normal right ventricular cavity size and systolic function. - There is mild dilatation of the ascending aorta measuring 3.40 cm. NM gosia perf SPECT rest & str 07/2023 Impression: 1. Myocardial perfusion imaging study shows fixed distal anterior defect; possible prior infarct. Cannot exclude findings of the left bundle branch block. 2. Gated LVEF 52% during stress and rest. 3. Transient ischemic dilatation not present. Assessment and Plan Assessment Anesthesia Assessment: Chart Reviewed Final Anesthetic Review Family History of Problems with Anesthesia: No History of Problems with Anesthesia: No Documented by User: Lopez Cardenas MD 10/10/24 10:16 [facility] Past Medical History Medical History Osteomyelitis Krish angina Left bundle branch block Bakers cyst Nicotine dependence, cigarettes, uncomplicated Arthritis BPH (benign prostatic hyperplasia) Elevated cholesterol Complex regional pain syndrome i of right lower limb S/P angiogram of extremity (07/18/23) Atrial fibrillation History of Palmer's esophagus Splenic vein thrombosis History of femoral angiogram GERD (gastroesophageal reflux disease) COPD (chronic obstructive pulmonary disease) Peripheral arterial disease Surgical History Surgical History (Updated 10/09/24 @ 10:20 by Karolina Ramachandran LPN) Hx of BKA History of tonsillectomy Hx of oral surgery Hx of tracheostomy History of esophagogastroduodenoscopy (EGD) H/O colonoscopy Social History Social History Household Members: None Household Members Other:: Son, son girlfriend, grandbaby Housing: House Housing Other:: 3 stairs to climb Are you a primary chronic care nurse to a significant other at home: No Do you presently have visiting nurse or other home services: Yes Comment: Dr Knott made aware of absent pulse and sensation in right foot Patient Tobacco Use Status: Current everyday Tobacco user Tobacco use type: Cigarette Cigarette Packs Per Day: 1 Cigarettes Per Day: 20.0 Years Smoked: 50 e-Cigarette/Vaping Use: Currently Using Second Hand Smoke Exposure: No Use of substances other than those prescribed or required for medical reasons: Yes Substance Use Type: Marijuana Are you DNR?: No Advance Directives: No Advance Directives Information Provided: Yes Poor oral hygiene: No service: No Meds Allergies Allergy/AdvReac Type Severity Reaction Status Date / Time No Known Allergies Allergy Verified 10/07/24 13:04 Home Medications ?Medication ?Instructions ?Recorded ?Confirmed ?Last Taken ?Type aspirin 81 mg tablet,delayed 81 mg PO DAILY 01/12/20 10/10/24 05/26/24 History release (Luis Low Dose Aspirin) pantoprazole 40 mg tablet,delayed 80 mg PO DAILY@0630 01/12/20 10/10/24 05/26/24 History release tamsulosin 0.4 mg capsule 0.8 mg PO DAILY 01/12/20 10/10/24 05/26/24 History atorvastatin 10 mg tablet 10 mg PO DAILY 05/04/20 10/10/24 05/26/24 History xjcqlobj-zj-ojycm 300 mcg-K 60 1 tab PO DAILY 10/02/23 10/10/24 05/26/24 History mcg-lycop 600 mcg-lutein 300 mcg tablet (Centrum Silver Men) metoprolol succinate 25 mg 25 mg PO DAILY 12/17/23 10/10/24 05/26/24 History tablet,extended release 24 hr albuterol sulfate 90 mcg/actuation 2 puff inhalation Q4H PRN 01/07/24 10/10/24 Unknown History aerosol inhaler shortness of breath or wheezing fluticasone 500 mcg-salmeterol 50 1 inh inhalation BID 05/26/24 10/10/24 05/26/24 History mcg/dose blistr powdr for inhalation (Wixela Inhub) gabapentin 300 mg capsule 300 mg PO QID 05/26/24 10/10/24 10/10/24 History acetaminophen 500 mg tablet 1,000 mg PO Q6H PRN Pain 10/07/24 10/10/24 Unknown History (Tylenol Extra Strength) ibuprofen 200 mg capsule 400 mg PO Q6H 10/07/24 10/10/24 Unknown History Exam Airway Mallampati Class: II TM Dist: >3cm Neck ROM: Full Denture: Upper and Lower Heart: ok Lungs: ok Assessment and Plan Assessment Anesthesia Assessment: Anesthesia Plan Discussed Final Anesthetic Review NPO: Yes ASA Class: III Final Preanesthetic Review: No Changes in Pt Med Stat, Meds/Allgs Chart Reviewed, Consent Obtained/Reviewed and Anes Risks/Benef Reviewed Patient Risk: Intermediate Procedure Risk: Low Anesthetic Plan Anesthetic Plan: GA and Agree w/ Assess. and Plan Disposition: Standard PACU
[2024-10-10] VITALS (8 sets, daily range): BP systolic 100–126; BP diastolic 62–78; PULSE 56–68; RESP 16–21; TEMP 36.2–36.6; O2SAT 97–100; BMI 25.5
--- NOTE | 2024-10-10 08:44 | MHC.SHP ---
Pre-Procedural Eval Section A - 24 Hr Update-Section A only Date of Service: 10/10/24 The patient is an INPATIENT: No Changes since office visit: Yes Patient answered all questions The patient has been examined within 24 hours of the surgical procedure. The History & Physical has been completed within 30 days and I have reviewed it.: Yes Section B - Complete if H&P > 30 days Chief Complaint: Complete traumatic amputation at level between Allergies: Allergies Allergy/AdvReac Type Severity Reaction Status Date / Time No Known Allergies Allergy Verified 10/07/24 13:04 Plan I have reviewed the history and physical and performed a pertinent physical examination on my patient. No changes have occurred unless specified. Time Spent With Patient Time: Total time managing care of this patient today ____ minutes.
--- NOTE | 2024-10-10 09:14 | ECG_ITS ---
Test Reason : preop, afib, pad, copd Blood Pressure : */* mmHG Vent. Rate : 57 BPM Atrial Rate : 57 BPM P-R Int : 180 ms QRS Dur : 140 ms QT Int : 452 ms P-R-T Axes : 41 -10 101 degrees QTcB Int : 439 ms Sinus bradycardia with Blocked Premature atrial complexes Left bundle branch block Abnormal ECG When compared with ECG of 10-Jan-2024 19:23, Premature atrial complexes are now Present Vent. rate has decreased by 61 bpm Referred By: Gill Shepherd Electronically Signed By: Khalif Ferrer
[2024-10-10 09:43] LABS: Hematocrit 46.8 % (42.0-52.0); Hemoglobin 15.7 g/dl (14.0-18.0); Mean Corpuscular HGB Conc 33.5 g/dl (31.0-36.0); Mean Corpuscular Hemoglobin 31.2 pg (27.0-33.0); Mean Corpuscular Volume 92.9 fL (80.0-98.0); NRBC Abs Auto 0.000 X10*3/uL (0.0-0.012); NRBC Pct Auto 0.0 /100WBC (0.0-0.2); Platelet Count 251 X10*3/uL (160-400); Red Blood Count 5.04 X10*6/uL (4.60-5.80); White Blood Count 8.2 X10*3/uL (4.8-10.8)
[2024-10-10] MEDS: Albuterol Sulfate (0.083%) 2.5 MG/3 ML VIAL.NEB INHALE (09:50)
[2024-10-10 10:06] LABS: Anion Gap 14 (12-20); Blood Urea Nitrogen 18 mg/dL (9-16); Calcium 9.6 mg/dL (8.4-10.2); Carbon Dioxide 26 mmol/L (22-29); Chloride 107 mmol/L (96-108); Creatinine Clr Calc Pharmacy 69.3; Estimated Glomerular Filt Rate > 60; Potassium 4.5 mmol/L (3.3-5.1); Sodium 142 mmol/L (135-145)
[2024-10-10] MEDS: Lactated Ringers 1,000 ML 100 ML IVCONT (10:13)
--- NOTE | 2024-10-10 11:23 | W.PM.OPN ---
Operative Note Operative Note Date of Service: 10/10/24 Narrative: Operative note by [facility] Preoperative diagnosis: Nonhealing right BKA stump 2. Osteomyelitis Postoperative diagnosis: Same Procedure: Revision of right BKA stump Surgeon:Bimal Knott M.D. Pharmaceutical Analyst: Lester OSORIO Anesthesia: General by Dr. Lopez arreaga Specimens: 2 - deep culture and bone culture Drains: None Estimated blood loss: Minimal Indications: 64-year-old gentleman who had a prior BKA past January has a nonhealing central ulcer of about 0.5 cm. It has been nonhealing for 2 months months now. There is underlying exposed bone. He now presents for revision of BKA. The patient has signed the informed consent after reviewing risks, complications, benefits, and alternatives previously discussed with the patient. The patient was given the opportunity to ask any additional questions or voice any concerns. All questions were answered to the patient's satisfaction. Procedure in detail: Patient was brought to the operating room prior to which a time-out was called for patient identification and site verification right BKA stump was prepped and draped in standard surgical fashion. Proximally a 10 cm incision was made across the pretibial surface on the prior flap stump line. We then used electrocautery to dissect down onto the tibial bone. We then dissected around the tibia circumferentially freeing up all the tissue from the bony edges. We then used a periosteal elevator to retract back and dissect out the bone. Retractor hooks were used to retract the skin away from the bone. Using a powered saw we created an angled cut across the pretibial surface. We at that point sent off a piece of bone for specimen in addition we took a deep culture. Wound was thoroughly irrigated out. We reapproximated deep layer using 2-0 Polysorb skin was closed with a 3-0 nylon in a mattress fashion with skin clips. Sterile dressing was applied. At the end of the case sponge instrument counts were correct. Patient tolerated the procedure well. Returned to recovery with stable vitals. This note is constructed using voice recognition software. While every effort has been made to ensure accuracy, attorney errors may have been included. Thank you for allowing me to participate in the care of your patient. Yours sincerely, Bimal Knott MD, FACS, R.P.V.I.
[2024-10-10] MEDS: oxyCODONE HCl Immed Release 5 MG TABLET PO (11:25)
== END 2024-10-10 14:07 | disposition home or self-care (01) ==
PROVIDERS: PCP Internal Medicine Medical Oncology; Visit Provider Surgery Vascular Surgery
PROC: (CPT 27880; principal; 2024-10-10 10:50)
DX: T87.43 Infection of amputation stump, right lower extremity (principal); L97.818 Non-pressure chronic ulcer of other part of right lower leg with other specified severity; M86.471 Chronic osteomyelitis with draining sinus, right ankle and foot; B95.61 Methicillin susceptible Staphylococcus aureus infection as the cause of diseases classified elsewhere; G90.521 Complex regional pain syndrome I of right lower limb; I73.9 Peripheral vascular disease, unspecified; Z89.511 Acquired absence of right leg below knee
CPT/HCPCS: 27886; 36415; 80048; 85027; 87070; 87073; 87077; 87186; 87205; 93005; J0690; J2003; J2704; J2795; J3010

== ENCOUNTER → 2024-10-10 09:06 | Outpatient (BNV) | payer MEDICARE, SELFPAY | PROVIDERS: PCP Internal Medicine Medical Oncology; Visit Provider Surgery Vascular Surgery | DX: T87.43 Infection of amputation stump, right lower extremity (principal); Z89.511 Acquired absence of right leg below knee | CPT/HCPCS: 27886; 99499 ==

== ENCOUNTER → 2024-10-10 09:14 | Outpatient (BNV) | payer MEDICARE, SELFPAY | PROVIDERS: PCP Internal Medicine Medical Oncology; Visit Provider Internal Medicine Cardiovascular Disease | DX: I49.1 Atrial premature depolarization (principal); I44.7 Left bundle-branch block, unspecified; R00.1 Bradycardia, unspecified | CPT/HCPCS: 93010 ==

== ENCOUNTER 2024-10-20 12:23 | Inpatient (IN) | payer MEDICARE, SELFPAY ==
--- OUTSIDE RECORDS SUMMARY | 2023-08-14 06:30 | XMS_ITS ---
Author Organization [facility] Address [address] [place] [address] Care Team Providers Care Crime Scene Photographer Name Role Phone Quinton Callahan MD Primary Care Provider Unavailab Quinton Alvarez [phone] REASON FOR VISIT Patient presents today for EGD, NUGENT'S ESOPHAGUS Encounters Encounter Location Date Provider Diagnosis [facility] [address] [facility] [address] [place] [address] 08/14/2023 Quinton Campos Plan Of Treatment Next Appt Details Provider Name:Quinton Campos , 02/04/2025 01:00:00 PM, [address], [address], [place], [address], Progress Notes * ANGELA HERNANDEZOB:1960 (64 yo M)Acc No.[id number]:08/14/2023 Progress Notes Patient: JUAN FRANCISCO TONG Provider: Angeles Campos MD :1960 A ge:63 Y S ex:Male Date:08/14/2023 Address:[address] [place] [address] [place] Pcp:Quinton Callahan MD Subjective: * Chief Complaints: [...] 08/14/2023 Generated for Tristen bustamante/Jai/Allysonitting on: 0 10/20/2024 01:45 PM EDT
--- OUTSIDE RECORDS SUMMARY | 2024-09-09 07:30 | XMS_ITS ---
Author Organization Quinton Callahan III, MD Address [address] [place] [address] Care Team Providers Care Historical Records Administrator Name Role Phone Quinton Callahan Primary Care Provider [phone] Allergies Allergen (clinical drug ingredient) Drug/Non Drug [...] Provider Speciality Internal M edicine Referred Provider [facility] er, Cardiology Referred Provider Specialty Cardiology [...] is able to be seen sooner than 01/28/25. Referral Priority Routine REASON FOR VISIT Right [...] Provider Diagnosis Quinton Callahan III, MD [address] [place] [address] [place] [address] 09/09/2024 Quinton Callahan Irregular heart rate I49.9 [...] endoscopy and was referred back to his combustion analyst, Dr. Quinton Campos. 09/09/2024 Chronic obstructive pulmonary [...] Irregular Heart Rate History of A-Fib, Cardiology [facility] Next Appt Details Follow Up: 3 Weeks, Reason: OV Provider Name:Quinton Callahan, 10/29/2024 02:30:00 PM, [address] [place] [address] [address], [place], [address], Provider Name:Quinton Callahan, 02/04/2025 02:00:00 PM, [address] [place] [address] [address], [place], [address], Progress Notes * Ana ENCINAShDOB:1960 (64 yo M)Acc No.[id number]:09/09/2024 Progress Notes Patient: Zan TONG Provider: Angeles Callahan MD :1960 A ge:64 Y S ex:Male Date:09/09/2024 Address:[address] [place] [address], [address]-[phone] Subjective: * Chief Complaints: * R ight [...] after dental work 1986upper endoscopy and colonoscopy, [facility], Dr. Quinton Campos 2009upper endoscopy, [facility], Dr. Quinton Campos, Palmer's esophagus 2014arteriogram right lower extremity 05/2019Right ykenn-xuc-kgtm amputation 02-04-2024 * Hospitalization/Major Diagno stic Procedure: [...] healthy grandchildren. One of his siblings has Jtkxjyf-Ittqe-Veisu disease. 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 He was born in [place], [place]. He came to [place] in 1984. He is with 6 children. He has 11 grandchildren. He is a of [employer]. He trained at [employer] and served in [employer]. * Medications: T akingMetoprolol Succinate ER 25 [...] 2 tablets by mouth once daily DiscontinuedNystatin 010510 UNIT/GM Powder 1 application Externally Twice a [...] reviewed and reconciled with the patientDiscontinued Nystatin 036159 UNIT/GM Powder 1 application Externally Twice a [...] endoscopy and was referred back to his combustion analyst, Dr. Quinton Campos. 5 . C hronic [...] * Treatment: 2. O thers Referral To:Cardiology [facility] Cardiology Reason:Evaluate and Treat Irregular [...] 0 09/09/2024 Generated for Tristen bustamante/Jai/eTransmitting on: 0 10/20/2024 01:45 PM EDT History and Physical Notes * [...] Referred Provider Not nicholas 09/09/2024 Quinton Callahan [facility], Cardiology Evaluate and Treat Irregular Heart Rate History of A-Fib
--- NOTE | 2024-10-20 | ECG_ITS ---
Test Reason : low HR Blood Pressure : */* mmHG Vent. Rate : 48 BPM Atrial Rate : * BPM P-R Int : * ms QRS Dur : 136 ms QT Int : 504 ms P-R-T Axes : * -27 90 degrees QTcB Int : 450 ms Normal sinus rhythm Premature atrial complexes Left bundle branch block Abnormal ECG When compared with ECG of 10-Oct-2024 10:03, No significant changes seen Referred By: Yaritza Feliz Electronically Signed By: ROSAURA SCHILLING
--- NOTE | ~2024-10-20 | XR_ITS ---
EXAMINATION: XR KNEE, RIGHT CLINICAL INFORMATION: BKA, concern for osteo COMPARISON: May 26, 2024 TECHNIQUE: Four views of the right knee. FINDINGS: Redemonstrated are changes related to below the knee amputation through the proximal diaphysis of the tibia and fibula. Numerous surgical clips are again noted in the medial and posterior central soft tissues. Vascular stent is redemonstrated in the distal femoral artery. There is soft tissue swelling in the region of the stump. There are new skin lazarus distally. There is diffuse osteopenia. There is patchy focal lytic areas in the distal end of the remaining tibia that are new when compared to the prior. The distal end of the dictated fibula appears stable. XR/XR knee RT 4V IMPRESSION: Possible osteomyelitis in the distal end of the remaining right tibia. Increasing diffuse osteopenia could be related to disuse. Electronically signed by: Alfredo Kumar MD 10/20/2024 01:11 PM EDT
[2024-10-20 12:25] VITALS: BP 130/86; PULSE 70; RESP 17; TEMP 36.5; O2SAT 99; BMI 25.8
--- NOTE | 2024-10-20 12:31 | ED_ITS ---
HPI - General Adult General Chief complaint: Wound/Laceration Stated complaint: problems with amputation site Time Seen by Provider: 10/20/24 12:53 Source: patient, RN notes reviewed and old records reviewed Mode of arrival: wheelchair Limitations: no limitations History of Present Illness ED Provider: Trini Vigil PA-C HPI narrative: 64-year-old male with medical history of arthritis, BPH, HLD, AFib not on AC, Palmer's esophagus, GERD, COPD, PID, s/p BKA 01/2024 with revision on 09/2024, presents to the ED due to persistent right BKA pain and drainage from incision site. Patient states original surgery of lower right BKA occur January 2024 and has completed several antibiotic courses due to difficulty with wound healing. Patient states most recently he had osteomyelitis and was hospitalized 05/2024 for cellulitis with osteomyelitis and had evaluation with Infectious Disease, and treated with IV antibiotics. Patient had revision of right BKA done 10 days ago on 10/10/2024 and is complaining of worsening pain, redness and purulent drainage. Patient states he has been on Keflex, with last dose taken this morning. Patient states this morning when home nurse came to visit and change dressing, nurses concerned about the redness and drainage and advised him to come to the ED for further evaluation. MD complaint: R BKA stump pain and drainage Related Data Home Medications ?Medication ?Instructions ?Recorded ?Confirmed aspirin 81 mg tablet,delayed 81 mg PO DAILY 01/12/20 0 10/10/24 release (Luis Low Dose Aspirin) pantoprazole 40 mg tablet,delayed 80 mg PO DAILY@0630 01/12/20 10/10/24 release tamsulosin 0.4 mg capsule 0.8 mg PO DAILY 01/12/20 atorvastatin 10 mg tablet 10 mg PO DAILY 05/04/2009/26 ynydonve-bd-nhutw 300 mcg-K 60 1 tab PO DAILY 10/02/23 10/10/24 mcg-lycop 600 mcg-lutein 300 mcg tablet (Centrum Silver Men) metoprolol succinate 25 mg 25 mg PO DAILY 12/17/23 tablet,extended release 24 hr albuterol sulfate 90 mcg/actuation 2 puff inhalation Q 4H PRN 01/07/24 10/10/24 aerosol inhaler shortness of breath or wheez ing fluticasone 500 mcg-salmeterol 50 1 inh inhalation BID 05/26/24 10/10/24 mcg/dose blistr powdr for inhalation (Josexela Inhub) gabapentin 300 mg capsule 300 mg PO QID 05/26/2410/10 acetaminophen 500 mg tablet 1,000 mg PO Q6H PRN Pain 0 10/07/24 10/10/24 (Tylenol Extra Strength) ibuprofen 200 mg capsule 400 mg PO Q6H 10/07/2410/10 Previous Rx's ?Medication ?Instructions ?Recorded ipratropium 0.5 mg-albuterol 3 mg 3 ml inhalation BID PRN wheezing 01/01/24 (2.5 mg base)/3 mL nebulization #180 mL soln cephalexin 500 mg capsule 500 mg PO BID #20 caps 10/10 oxycodone-acetaminophen 5 mg-325 1 tab PO Q8H PRN pain #10 tabs 10/10/24 mg tablet (Endocet) Allergies Allergy/AdvReac Type Severity Reaction Status Date / Time No Known Allergies Allergy Verified 10/20/24 12:28 Review of Systems 2 Review of Systems: CONST: Negative for fever, body aches and chills. HENT: Negative for neck pain/stiffness, headache, congestion, sore throat, swelling. EYES: Negative for discharge/pain or vision changes. RESP: Negative for cough/hemoptysis and shortness of breath. CV: Negative chest pain, difficulty breathing, palpitations. ABD: Negative pain, nausea, vomiting. : Negative increase frequency, dysuria, blood in urine or stool. MUSC: Negative for muscle aches, edema. POS R BKA stump pain and drainage SKIN: Negative rash, lesions/sores. NEURO: Negative headache, dizziness, weakness. Yes all other systems are reviewed and are negative [facility] Past Medical History Attestation statement: The following information was validated with the patient. Source: old records reviewed and nursing notes reviewed Medical History Osteomyelitis Krish angina Left bundle branch block Bakers cyst Nicotine dependence, cigarettes, uncomplicated Arthritis BPH (benign prostatic hyperplasia) Elevated cholesterol Complex regional pain syndrome i of right lower limb S/P angiogram of extremity (07/18/23) Atrial fibrillation History of Palmer's esophagus Splenic vein thrombosis History of femoral angiogram GERD (gastroesophageal reflux disease) COPD (chronic obstructive pulmonary disease) Peripheral arterial disease Surgical History Hx of BKA History of tonsillectomy Hx of oral surgery Hx of tracheostomy History of esophagogastroduodenoscopy (EGD) H/O colonoscopy Social History Social History Household Members: None Household Members Other:: Son, son girlfriend, grandbaby Housing: House Housing Other:: 3 stairs to climb Are you a primary health care liaison to a significant other at home: No Do you presently have visiting nurse or other home services: Yes Comment: Dr Knott made aware of absent pulse and sensation in right foot Patient Tobacco Use Status: Current everyday Tobacco user Tobacco use type: Cigarette Cigarette Packs Per Day: 1 Cigarettes Per Day: 20.0 Years Smoked: 50 e-Cigarette/Vaping Use: Currently Using Second Hand Smoke Exposure: No Substance Use Type: Marijuana Advance Directives: Yes Advance Directives on File: Yes Advance Directives Date on File: 01/17/24 Do you have a plan to hurt others: No Plan service: No Physical Exam ED Vital Signs: Vital Signs - 24 hr 10/20/24 12:25 10/20/24 15:18 Temperature 97.7 F 97.8 F Pulse Rate 70 46 L Respiratory Rate 17 10 L Blood Pressure 130/86 133/68 Pulse Oximetry 99 97 Oxygen Delivery Method Room Air Room Air BMI result Body Mass Index 25.8 GENERAL APPEARANCE: ?AxOx4, generally well-appearing, no acute distress. HEENT: ?NC, AT. MMM. EOMI, clear conjunctiva, oropharynx clear. NECK: ?Supple without lymphadenopathy.? No stiffness or restricted ROM. HEART:? Normal rate and regular rhythm, normal S1/S1, no m/r/g LUNGS:? CTAB, moving air well. No crackles or wheezes are heard. ABDOMEN: ?Soft, nontender, nondistended with good bowel sounds heard. BACK: No CVAT, no obvious deformity. EXTREMITIES: ?Without cyanosis, clubbing or edema. R stump with mild dehiscence, yellow purulent drainage, TTP over distal stump. SEE PHOTOS NEUROLOGICAL: ?Grossly nonfocal. Alert and oriented, moving all 4 extremities. Observed to ambulate with normal gait. Skin: ?Warm and dry without any rash. Course Course Course Narrative: Rapid medical examination performed in triage by Pooja Tapia PA-C. Patient is a 64 year old assigned male at presenting to the emergency department with right BKA that occurred last week. Patient states he had a recent right BKA that is causing him continual pain and recently completed ABX. Detailed physical exam and review of systems are deferred to the recruiting intern. Labs and imaging ordered. Patient placed back in the waiting room pending room availability and results. Medications Administered Discontinued Medications Generic Name Dose Route Start Last Admin Trade Name Freq PRN Reason Stop Dose Admin Cefepime HCl 2 gm in 50 mls @ 100 mls/hr 10/20/24 14:37 10/20/24 15:06 Maxipime IV 10/20/24 15:06 100 mls/hr ONCE ONE Administration Morphine Sulfate 4 mg 10/20/24 14:37 10/20/24 15:06 Morphine Sulfate 4 Mg/Ml Cartridge IVPUSH 10/20/24 14:38 4 mg ONCE ONE Administration Protocol Medical Decision Making Medical Decision Making MDM Narrative: 64-year-old male with medical history of arthritis, BPH, HLD, AFib not on AC, Palmer's esophagus, GERD, COPD, PID, s/p BKA 01/2024 with revision on 09/2024, presents to the ED due to persistent right BKA pain and drainage from incision site. Patient states original surgery of lower right BKA occur January 2024 and has completed several antibiotic courses due to difficulty with wound healing. Patient states most recently he had osteomyelitis and was hospitalized 05/2024 for cellulitis with osteomyelitis and had evaluation with Infectious Disease, and treated with IV antibiotics. Patient had revision of right BKA done 10 days ago on 10/10/2024 and is complaining of worsening pain, redness and purulent drainage. Patient states he has been on Keflex, with last dose taken this morning. Patient states this morning when home nurse came to visit and change dressing, nurses concerned about the redness and drainage and advised him to come to the ED for further evaluation. VS on initial observation-BP 130/86, pulse rate of 70, respiratory rate of 17, afebrile with oral temp of 97.7, O2 saturation 99 percent on room air Labs without leukocytosis/leukopenia, H&H stable, no evidence of electrolyte abnormality, CRP elevated at 0.52 XR R Knee with possible osteomyelitis of the distal remaining tibia. I reached out to Dr. Payton who was covering vascular for Dr. Knott who suggested patient to be admitted to medicine with IV abx. I started patient on IV vancomycin and cefepime for possible pseudomonas coverage. I spoke with Hospitalist DWAIN Vitale who will admit to medicine for treatment. Patient given 4mg morphine for pain management Differential Diagnosis Differential Diagnoses: The differential diagnosis associated with the presentation includes Cellulitis Osteomyelitis Necrotizing fasciitis Consult Healthcare Provider Management of the patient was discussed with: Hospitalist (DWAIN Vitale ) Lab Data MDM Lab Attestation statement: I reviewed the patient's lab results. 10/20/24 12:47 10/20/24 12:47 Labs: Lab Results 10/20/24 Range/Units 12:47 WBC 8.1 (4.8-10.8) X10*3/uL RBC 4.59 L (4.60-5.80) X10*6/uL Hgb 14.4 (14.0-18.0) g/dl Hct 42.8 (42.0-52.0) % MCV 93.2 (80.0-98.0) fL MCH 31.4 (27.0-33.0) pg MCHC 33.6 (31.0-36.0) g/dl RDW 13.2 (11.0-16.0) % Plt Count 233 (160-400) X10*3/uL MPV 9.7 (9.4-12.4) fL Immature Gran % (Auto) 0.4 (0.0-0.4) % Neut % (Auto) 70.6 (45-73) % Lymph % (Auto) 16.8 L (20-40) % [place] % (Auto) 8.8 (2-11) % Eos % (Auto) 2.8 (0-4) % Baso % (Auto) 0.6 (0-2) % Lymph # (Auto) 1.4 (1.2-4.9) X10*3/uL [place] # (Auto) 0.7 (0.1-1.2) X10*3/uL Eos # (Auto) 0.2 (0.0-0.4) X10*3/uL Baso # (Auto) 0.1 (0.0-0.2) X10*3/uL Abs Immat Gran (auto) 0.03 (0.00-0.03) X10*3/uL Absolute Neuts (auto) 5.7 (2.0-8.3) x10*3/uL Absolute Nucleated RBC 0.000 (0.0-0.012) X10*3/uL Nucleated RBC % (auto) 0.0 (0.0-0.2) /100WBC ESR 5 (0-15) MM/HR Sodium 139 (135-145) mmol/L Potassium 4.3 (3.3-5.1) mmol/L Chloride 107 (96-108) mmol/L Carbon Dioxide 26 (22-29) mmol/L Anion Gap 10 L (12-20) BUN 18 H (9-16) mg/dL Creatinine 1.07 (0.5-1.4) mg/dL Estim Creat Clear Calc 74.5 Estimated GFR > 60 Random Glucose 94 (60-115) mg/dL Calcium 8.9 D (8.4-10.2) mg/dL Total Bilirubin 0.4 (0.0-1.0) mg/dL AST 21 (5-37) U/L ALT 16 (0-40) U/L Alkaline Phosphatase 75 (39-117) U/L C-Reactive Protein 0.52 H (< or = 0.50) mg/dL Total Protein 5.9 L (6.5-8.0) g/dL Albumin 3.8 (3.5-5.0) g/dL Radiology Impression Discussion of test interpretation with radiology: I have reviewed the radiologist's reading. Radiologist Impression: XR R knee FINDINGS: Redemonstrated are changes related to below the knee amputation through the proximal diaphysis of the tibia and fibula. Numerous surgical clips are again noted in the medial and posterior central soft tissues. Vascular stent is redemonstrated in the distal femoral artery. There is soft tissue swelling in the region of the stump. There are new skin lazarus distally. There is diffuse osteopenia. There is patchy focal lytic areas in the distal end of the remaining tibia that are new when compared to the prior. The distal end of the dictated fibula appears stable. XR/XR knee RT 4V IMPRESSION: Possible osteomyelitis in the distal end of the remaining right tibia. Increasing diffuse osteopenia could be related to disuse. Electronically signed by: Alfredo Kumar MD 10/20/2024 01:11 PM EDT RP Dictated By: Alfredo Kumar MD Signed By: <Electronically signed by Alfredo Kumar MD in OV> 10/20/24 1311 External Record Review External record reviewed: Inpatient record, Office record and Outpatient record Chronic Conditions Patient?s care impacted by: Other (arthritis, BPH, HLD, AFib not on AC, Palmer's esophagus, GERD, COPD, PID, s/p BKA 01/2024 with revision on 09/2024,) Social Determinants Patient?s care significantly limited by Social Determinants of Health including: Other Social Determinant of Health Discharge Plan Discharge Patient Disposition: Admitted As Inpatient Print Language: Chinese
--- NOTE | 2024-10-20 12:47 | MHC.EDTECH ---
Patient brought into triage area,labs drawn and sent to lab.
[2024-10-20 12:51] LABS: MANUAL DIFF FLAG NO
[2024-10-20 12:54] LABS: Hematocrit 42.8 % (42.0-52.0); Hemoglobin 14.4 g/dl (14.0-18.0); Imm Gran Abs Auto 0.03 X10*3/uL (0.00-0.03); Imm Gran Pct Auto 0.4 % (0.0-0.4); Lymphocytes Absolute Auto 1.4 X10*3/uL (1.2-4.9); Mean Corpuscular HGB Conc 33.6 g/dl (31.0-36.0); Mean Corpuscular Hemoglobin 31.4 pg (27.0-33.0); Mean Corpuscular Volume 93.2 fL (80.0-98.0); NRBC Abs Auto 0.000 X10*3/uL (0.0-0.012); NRBC Pct Auto 0.0 /100WBC (0.0-0.2); Platelet Count 233 X10*3/uL (160-400); Red Blood Count 4.59 X10*6/uL (4.60-5.80); White Blood Count 8.1 X10*3/uL (4.8-10.8)
[2024-10-20 13:08] LABS: Alanine Aminotransferase 16 U/L (0-40); Albumin Level 3.8 g/dL (3.5-5.0); Alkaline Phosphatase 75 U/L (39-117); Anion Gap 10 (12-20); Aspartate Amino Transferase 21 U/L (5-37); Blood Urea Nitrogen 18 mg/dL (9-16); Calcium 8.9 mg/dL (8.4-10.2); Carbon Dioxide 26 mmol/L (22-29); Chloride 107 mmol/L (96-108); Creatinine Clr Calc Pharmacy 74.5; Estimated Glomerular Filt Rate > 60; Potassium 4.3 mmol/L (3.3-5.1); Sodium 139 mmol/L (135-145); Total Protein 5.9 g/dL (6.5-8.0)
--- OUTSIDE RECORDS SUMMARY | 2024-10-20 13:45 | XMS_ITS | Clinical Summary ---
Author Organization [facility] Address [address] [place] [id number] Phone Care Team Providers Care Compliance Quality Performance Analyst Name Role Phone Quinton Callahan MD Primary Care Provider [phone] Allergies No known active allergies Medications oxyCODONE-aceta [...] this topic Medical Devices Implanted Type Area Eeler Device Identifier Shelf Expiration Date Model / Serial / Lot Graft Vascular 6.0mmx60 70cm Propaten Heparin Carmeda Bioactive Surface Thin Wall Removable Ring Stretch - [id number] Implanted:Qty: 1 on 12/02/2023 by Percy Segundo MD at [facility] STANDARD Right: Vein [employer] [id number] 08/13/2026 [id number] / [id number] / Metal Clip Celd Left Groin 10/2023 Stent Right Femoral Artery Patch Pericardium 2cm 9cm Decellularized Bovine [employer] - [id number] Implanted:Qty: 1 on 12/02/2023 by Percy Segundo MD at [facility] Right: Vein [employer] [id number] 03/24/2025 [id number] / / [id number] Procedures Procedure Name Priority Date/Time Associated Diagnosis Comments BASIC METABOLIC PANEL Routine 02/18/2024 8:01 AM EST Aftercare for amputation stump LIPID PANEL Routine 11/28/2023 1:21 AM EDT from Last 3 Months or Most Recently Relevant to Health Maintenance Results * (ABNORMAL) Basic metabolic panel (02/18/2024 8:01 AM EST) SODIUM 137 133 - 146 mmol/L [facility] CHLORIDE 102 96 - 108 mmol/L [facility] POTASSIUM 4.4 3.3 - 5.1 mmol/L [facility] CO2 25 21 - 35 mmol/L [facility] BUN 13 6 - 19 mg/dL [facility] CREATININE 0.70 0.5 - 1.5 mg/dL [facility] GLUCOSE 101(H) 70 - 99 mg/dL [facility] CALCIUM 9.7 8.4 - 10.3 mg/dL [facility] EGFR 102 >59 mL/min/1.7 3m2 [facility] Comment:Estimated glomerular filtration rate calculated using the CKD-EPI refit equation. ANION GAP 14 10 - 20 mmol/L [facility] Blood 02/18/2024 8:01 AM EST 02/18/2024 10:00 AM EST us Garrett Fletcher MD LAB BLOOD ORDERABLES Final Resul t [facility] [address] [place] [address] * Lipid panel (11/28/2023 1:21 AM EDT) CHOLESTEROL 125 <200 mg/dL [facility] TRIGLYCERIDES 60 35 - 150 mg/dL [facility] HDL 60 40 - 80 mg/dL [facility] CALCULATED LDL 53 50 - 129 mg/dL [facility] VLDL 12 <31 mg/dL [facility] CARDIAC RISK RATIO 2.1 0.0 - 4.0 [facility] Blood 11/28/2023 1:21 AM EDT 11/28/2023 1:35 AM EDT us Ayla Owens PA-C LAB BLOOD ORDERABLES Clementina l Result [facility] [address] [place] [id number] from Last 3 Months or Most Recently Relevant to Health Maintenance Insurance [employer] PPO MEDICARE REPLACEMENT MEDICARE PART A & B Member Subscriber Plan / Payer (Ef fective 2023-Present) Name:Zan Encinas Member ID:[id number] Relation to Subscriber:Self Name:Zan Encinas Subscriber ID:[id number] Payer ID:[id number] Group ID:Not on file Type:Medicare Address: [facility] [employer] [facility] [address] [place] [address] A[employer] O MEDICARE REPLACEMENT MEDICARE PART A & B [employer] O MEDICARE REPLACEMENT MEDICARE PART A & B [employer] O MEDICARE REPLACEMENT MEDICARE PART A & B [employer] PPO MEDICARE REPLACEMENT MEDICARE PART A & B [facility] MEDICARE REPLACEMENT MEDICARE PART A & B Advance Directives For more information, please contact: [phone] (9AM - 5PM Swati/[facility], Sunday-Sunday) * Full Code (Latest Code Status on File) Date Activated Date Inactivated Comments 11/27/2023 4:16 PM Question Answer Comments Code Status Confirmed With: Patient Care Teams Compliance Quality Performance Analyst Relationship Specialty Start Date End Date Quinton Callaahn MD [address] [place] [id number] PCP - General Medical Oncology 11/23/23 Additional Source Comments The information contained in this document represents components of the legal health record. It is not the complete legal health record.[facility]
[2024-10-20] MEDS: cefEPime HCl/D5W 2 GM/50 ML PIGGYBACK IV ×2 (15:06→23:14)
--- NOTE | 2024-10-20 15:10 | PC.NURSE ---
Pt with dressing removed from R BKA and prurulence/redness noted at incision site; wound culture obtained/sent; pt medicated for pain and IV ABX started per orders
[2024-10-20 15:18] VITALS: BP 133/68; PULSE 46; RESP 10; TEMP 36.6; O2SAT 97
[2024-10-20] MEDS: vancomycin/NS 2,000 MG/500 ML PLAST..BAG 250 MG IV (15:47)
--- NOTE | 2024-10-20 17:03 | PHA.MEDREC ---
Addendum entered by Yazmin Tate [facility] 10/20/24 17:15: reviewed Original Note: Pharmacy Consult ? Medication Reconciliation Pharmacy has completed the medication reconciliation. Spoke with pt and he confirmed his medications. Per pt, he takes an Albuterol inhaler as needed for SOB/Wheezing and Atorvastatin 10mg once daily; pt confirmed those are being filled at [facility] in [place], I called them and the confirmed the Albuterol was last filled 08/07/2023 and the Atorvastatin was last picked up 12/03/2023, pt confirmed he takes his Gabapentin 300mg tabs 2 BID now instead of 1 tab QID as written. Pt confirmed he finished the Cephalexin regimen this morning.
--- NOTE | 2024-10-20 17:10 | P.CONGS_ITS ---
History of Present Illness Consult details Consult date: 10/20/24 Narrative: 64M with known PAD, COPD, and atrial fibrillation, not on anticoagulation, sent to the ED by his visiting nurse tino of redness and drainage of his surgical incision. He had undergone BKA of the right leg with Dr. Knott for critical limb ischemia last 2023. He underwent revision of the BKA stump last October [address] Knott because of ainus and nonhealing of the stump. He is being followed by a visiting nurse for wound care. His incision was noted to have erythema and scanty drainage this morning so he was sent to the ED by his nurse. He denies any fever or chills. He denies severe pain on the stump. Review of Systems 2 Constitutional: Constitutional: Denies chills and Denies fever(s) Cardiovascular: Cardiovascular: Denies chest pain, Denies dyspnea and Denies dyspnea on exertion Respiratory: Respiratory: Denies cough, Denies dyspnea and Denies dyspnea on exertion Gastrointestinal: Gastrointestinal: Denies hematochezia and Denies change in bowel habits Genitourinary: Genitourinary: Denies hematuria and Denies difficulty urinating Musculoskeletal: Musculoskeletal: Denies back pain and Denies limited range of motion Neurologic: Denies focal weakness and Denies convulsions Psychiatric: Psychiatric: Denies depression and Denies mood swings PMFSH Past Medical History Medical History Osteomyelitis Krish angina Left bundle branch block Bakers cyst Nicotine dependence, cigarettes, uncomplicated Arthritis BPH (benign prostatic hyperplasia) Elevated cholesterol Complex regional pain syndrome i of right lower limb S/P angiogram of extremity (07/18/23) Atrial fibrillation History of Palmer's esophagus Splenic vein thrombosis History of femoral angiogram GERD (gastroesophageal reflux disease) COPD (chronic obstructive pulmonary disease) Peripheral arterial disease Surgical History Surgical History Hx of BKA History of tonsillectomy Hx of oral surgery Hx of tracheostomy History of esophagogastroduodenoscopy (EGD) H/O colonoscopy Social History Social History Household Members: Family and Children Household Members Other:: Son, son girlfriend, grandbaby Housing: Apartment Housing Other:: 3 stairs to climb Are you a primary emergency care attendant to a significant other at home: No Do you presently have visiting nurse or other home services: Yes Comment: Dr Knott made aware of absent pulse and sensation in right foot Patient Tobacco Use Status: Current everyday Tobacco user Tobacco use type: Cigarette Cigarette Packs Per Day: 1 Cigarettes Per Day: 20.0 Years Smoked: 50 Smoked in Last 30 Days: Yes e-Cigarette/Vaping Use: Never Used Patient Interested in Nicotine Replacement: Yes Patient Given Instructions on How to Stop Smoking: Yes Date Education Initiated: 10/20/24 Second Hand Smoke Exposure: No Substance Use Type: Marijuana Currently Displaying Signs/Symptoms of Drug Intoxication Withdrawal: No Advance Directives: Yes Advance Directives on File: Yes Advance Directives Date on File: 01/17/24 Do you have a plan to hurt others: No Plan Recently lost weight without trying: No Nutrition Risks: No Nutritional Risk Poor oral hygiene: No service: Yes Meds Allergies Allergy/AdvReac Type Severity Reaction Status Date / Time No Known Allergies Allergy Verified 10/20/24 12:28 Active Medications: Current Medications Acetaminophen (Acetaminophen 325 Mg Tablet) 650 mg PO Q6H PRN PRN Reason: Pain, Mild 1-3,fever,headache Calcium Carbonate (Calcium Carbonate 750 Mg Tab.Chew) 750 mg PO Q4H PRN PRN Reason: Heartburn Enoxaparin Sodium (Enoxaparin Sodium 40 Mg/0.4 Ml Syringe) 40 mg SUBCUT Q24H JOSETTE Magnesium Hydroxide (Milk Of Magnesia 30 Ml Oral.Susp) 30 ml PO DAILY PRN PRN Reason: Constipation Melatonin (Melatonin 3 Mg Tablet) 6 mg PO BEDTIME PRN PRN Reason: Insomnia Sodium Chloride (0.9 % Sodium Chloride Flush 3 Ml Syringe) 3 ml IVFLUSH QSHIFT [facility] Home Medications ?Medication ?Instructions ?Recorded ?Confirmed ?Last Taken ?Type aspirin 81 mg tablet,delayed 81 mg PO DAILY 01/12/20 0 10/20/24 10/20/24 History release (Luis Low Dose Aspirin) pantoprazole 40 mg tablet,delayed 80 mg PO DAILY@0630 01/12/20 10/20/24 10/20/24 History release tamsulosin 0.4 mg capsule 0.8 mg PO DAILY 01/12/2010/20/25 History atorvastatin 10 mg tablet 10 mg PO DAILY 05/04/20 08/07/2010/20/24 History ikbhovmv-qs-ujvau 300 mcg-K 60 1 tab PO DAILY 10/02/23 10/20/24 10/20/24 History mcg-lycop 600 mcg-lutein 300 mcg tablet (Centrum Silver Men) metoprolol succinate 25 mg 25 mg PO DAILY 12/17/2310/20/24 History tablet,extended release 24 hr albuterol sulfate 90 mcg/actuation 2 puff inhalation Q 4H PRN 01/07/24 10/20/24 Unknown History aerosol inhaler shortness of breath or wheez ing gabapentin 300 mg capsule 600 mg PO BID 05/26/2410/2010/20/24 History acetaminophen 500 mg tablet 1,000 mg PO Q6H PRN Pain 0 10/07/24 10/20/24 Unknown History (Tylenol Extra Strength) Physical Exam 2 Vital Signs: Vital Signs: Last Vital Signs Temp 97.8 F 10/20/24 15:18 Pulse 46 L 10/20/24 15:18 Resp 10 L 10/20/24 15:18 BP 133/68 10/20/24 15:18 Pulse Ox 97 10/20/24 15:18 O2 Del Method Room Air 10/20/24 15:18 BMI result Body Mass Index 25.8 Const: General: comfortable and no acute distress O rientation/consciousness: patient oriented x3 Neck: Neck: Yes no lymphadenopathy Resp: Auscultation: clear to auscultation bilaterally Cardio: Rhythm: abnormal rhythm (irregular) GI: Palpation (GI): Soft to palpation, nontender and no guarding Neuro: General: patient oriented x3 Extrem: Other: right BKA stump - erythema along incision, scanty drainage, lazarus and sutures in place, Results Labs 10/21/24 06:27 10/23/24 07:19 Labs: Abnormal lab results 10/20/24 Range/Units 12:47 RBC 4.59 L (4.60-5.80) X10*6/uL Lymph % (Auto) 16.8 L (20-40) % Anion Gap 10 L (12-20) BUN 18 H (9-16) mg/dL C-Reactive Protein 0.52 H (< or = 0.50) mg/dL Total Protein 5.9 L (6.5-8.0) g/dL Short CBC 10/20/24 Range/Units 12:47 WBC 8.1 (4.8-10.8) X10*3/uL Hgb 14.4 (14.0-18.0) g/dl Hct 42.8 (42.0-52.0) % Plt Count 233 (160-400) X10*3/uL BMP 10/20/24 12:47 Sodium 139 Potassium 4.3 Chloride 107 Carbon Dioxide 26 BUN 18 H Creatinine 1.07 Calcium 8.9 D Liver Function 10/20/24 Range/Units 12:47 Total Bilirubin 0.4 (0.0-1.0) mg/dL AST 21 (5-37) U/L ALT 16 (0-40) U/L Alkaline Phosphatase 75 (39-117) U/L Albumin 3.8 (3.5-5.0) g/dL All other labs normal. Assessment and Plan (1) Infected surgical wound: Status: Inactive He has what appears to have an infection of his incision from his revision of his right BKA stump done last October 10, [address] Knott. The changes seen on the tibial stump are likely due to recent postop, and not osteomyelitis. I recommend putting him on antibiotics for now. He will need good wound care. He appears well and is not septic looking. I will follow along while he is in the hospital. Dr. Knott is out of town and I am covering for him for the day, and I will follow this patient. Procedures Date of Service Date of Service: 10/23/24
[2024-10-20 18:15] VITALS: BP 145/69; PULSE 77; RESP 18; TEMP 36.2; O2SAT 99
[2024-10-20 18:17] VITALS: BMI 26.5
--- NOTE | 2024-10-20 18:51 | P.HPHOSP_ITS ---
History of Present Illness Date of Service: 10/20/24 Attending physician on admission: Melquiades Poe Chief Complaint: Right stump pain Pt is a 64-year-old male with a PMH significant for?PAD s/p right BKA on 01/2024 with revision on 10/10/2024, paroxysmal AFib not on anticoagulation, COPD not on home O2, GERD, Palmer's esophagus, HLD, and BPH who presents to the ED for evaluation of worsening right stump pain and drainage from stump revision surgical site. Pt reports has had drainage from BKA revision incision since surgery on 10/10. Originally drainage was yellowish/orangish and mostly clear, though lately has had thick pus draining from it. Pain especially became intense about 3 days ago and area turned red. Today visiting nurse advised pt come to the ED as incision site looked worse than before. Pt was prescribed a 10 day course of Keflex post surgery, for which he took his last dose earlier this morning. No fever or chills. Denies any nausea or vomiting. No chest pain/pressure. Denies shortness or breath or difficulty breathing. Of note, pt had prior hospitalization to [facility] in May with cellulitis and osteomyelitis of right stump. Was seen and evaluated by ID who suggested 6 weeks of or dependent, but pt was unable to complete optimal treatment due to costs. In the ED pt was bradycardic in the 40s, vitals otherwise stable and WNL. Labs were significant for mildly elevated CRP of 0.5 gene, otherwise unremarkable and WNL. No leukocytosis. ESR WNL. No significant electrolyte abnormalities. Renal and hepatic function WNL. Right knee x-ray showing possible osteomyelitis at the distal end of remaining right tibia. EKG demonstrated AFib with slow ventricular response with chronic LBBB but without evidence of significant ST elevations or depressions. Pt was treated in the ED with morphine, cefepime, and vancomycin. Pt is admitted to the hospital for treatment and further evaluation of right stump cellulitis concerning for osteomyelitis. Review of Systems 2 Review of Systems: Negative except for that which is stated in the [facility] Medical History Osteomyelitis Krish angina Left bundle branch block Bakers cyst Nicotine dependence, cigarettes, uncomplicated Arthritis BPH (benign prostatic hyperplasia) Elevated cholesterol Complex regional pain syndrome i of right lower limb S/P angiogram of extremity (07/18/23) Atrial fibrillation History of Palmer's esophagus Splenic vein thrombosis History of femoral angiogram GERD (gastroesophageal reflux disease) COPD (chronic obstructive pulmonary disease) Peripheral arterial disease Surgical History Hx of BKA History of tonsillectomy Hx of oral surgery Hx of tracheostomy History of esophagogastroduodenoscopy (EGD) H/O colonoscopy Social History Household Members: Family and Children Household Members Other:: Son, son girlfriend, grandbaby Housing: Apartment Housing Other:: 3 stairs to climb Are you a primary home health care case manager to a significant other at home: No Do you presently have visiting nurse or other home services: Yes Comment: Dr Knott made aware of absent pulse and sensation in right foot Patient Tobacco Use Status: Current everyday Tobacco user Tobacco use type: Cigarette Cigarette Packs Per Day: 1 Cigarettes Per Day: 20.0 Years Smoked: 50 Smoked in Last 30 Days: Yes e-Cigarette/Vaping Use: Never Used Patient Interested in Nicotine Replacement: Yes Patient Given Instructions on How to Stop Smoking: Yes Date Education Initiated: 10/20/24 Second Hand Smoke Exposure: No Substance Use Type: Marijuana Advance Directives: Yes Advance Directives on File: Yes Advance Directives Date on File: 01/17/24 Do you have a plan to hurt others: No Plan Recently lost weight without trying: No Nutrition Risks: No Nutritional Risk Poor oral hygiene: No service: No Meds Allergies Allergy/AdvReac Type Severity Reaction Status Date / Time No Known Allergies Allergy Verified 10/20/24 12:28 Active Medications: Current Medications Acetaminophen (Acetaminophen 325 Mg Tablet) 650 mg PO Q6H PRN PRN Reason: Pain, Mild 1-3,fever,headache Albuterol Sulfate (Albuterol Sulfate 90 Mcg 8 Gm Inhaler) 2 puff INHALE RQ4H PRN PRN Reason: shortness of breath or wheezing Aspirin (Aspirin Enteric Coated 81 Mg Tablet.) 81 mg PO DAILY JOSETTE Atorvastatin Calcium (Atorvastatin Calcium 10 Mg Tablet) 10 mg PO DAILY JOSETTE Calcium Carbonate (Calcium Carbonate 750 Mg Tab.Chew) 750 mg PO Q4H PRN PRN Reason: Heartburn Enoxaparin Sodium (Enoxaparin Sodium 40 Mg/0.4 Ml Syringe) 40 mg SUBCUT Q24H [facility] Gabapentin (Gabapentin 300 Mg Capsule) 600 mg PO BID [facility] Cefepime HCl (Maxipime) 2 gm in 50 mls @ 100 mls/hr IV Q8H [facility] Magnesium Hydroxide (Milk Of Magnesia 30 Ml Oral.Susp) 30 ml PO DAILY PRN PRN Reason: Constipation Melatonin (Melatonin 3 Mg Tablet) 6 mg PO BEDTIME PRN PRN Reason: Insomnia Metoprolol Succinate (Metoprolol Succinate Er 25 Mg Tab.Er.24h) 25 mg PO DAILY [facility]; Protocol Morphine Sulfate (Morphine Sulfate 4 Mg/Ml Cartridge) 4 mg IVPUSH ONCE PRN; Protocol PRN Reason: Pain, Severe (Pain Scale 7-10) Multivitamins/Vitamin C (Multivitamin Tablet) 1 tab PO DAILY [facility] Nicotine (Nicotine 21 Mg Patch.Td24) 21 mg TRANSDERMA DAILY [facility] Pantoprazole Sodium (Pantoprazole Sodium 20 Mg Tablet.Dr) 80 mg PO DAILY@0630 [facility] Pharmacy Consult (Consult Rx Vancomycin Dosing) 1 each MISCELLANE DAILY PRN PRN Reason: Consult order Sodium Chloride (0.9 % Sodium Chloride Flush 3 Ml Syringe) 3 ml IVFLUSH QSHIFT [facility] Tamsulosin HCl (Tamsulosin Hcl 0.4 Mg Capsule) 0.8 mg PO DAILY [facility] Home Medications ?Medication ?Instructions ?Recorded ?Confirmed ?Last Taken ?Type aspirin 81 mg tablet,delayed 81 mg PO DAILY 01/12/20 0 10/20/24 10/20/24 History release (Luis Low Dose Aspirin) pantoprazole 40 mg tablet,delayed 80 mg PO DAILY@0630 01/12/20 10/20/24 10/20/24 History release tamsulosin 0.4 mg capsule 0.8 mg PO DAILY 01/12/2010/20/24 History atorvastatin 10 mg tablet 10 mg PO DAILY 05/04/2009/2710/20/24 History mjcfvhok-by-mnums 300 mcg-K 60 1 tab PO DAILY 10/02/23 10/20/24 10/20/24 History mcg-lycop 600 mcg-lutein 300 mcg tablet (Centrum Silver Men) metoprolol succinate 25 mg 25 mg PO DAILY 12/17/2310/20/24 History tablet,extended release 24 hr albuterol sulfate 90 mcg/actuation 2 puff inhalation Q 4H PRN 01/07/24 10/20/24 Unknown History aerosol inhaler shortness of breath or wheez ing gabapentin 300 mg capsule 600 mg PO BID 05/26/2410/2010/20/24 History acetaminophen 500 mg tablet 1,000 mg PO Q6H PRN Pain 0 10/07/24 10/20/24 Unknown History (Tylenol Extra Strength) Physical Exam 2 Vital Signs and Narrative: Vital Signs: Last Vital Signs Temp 97.2 F 10/20/24 18:15 Pulse 77 10/20/24 18:15 Resp 18 10/20/24 18:15 BP 145/69 H 10/20/24 18:15 Pulse Ox 99 10/20/24 18:15 O2 Del Method Room Air 10/20/24 18:15 BMI result Body Mass Index 26.5 General: AOx3, no acute distress Resp: CTA bilaterally CVS: S1, S2, RRR GI: +BS, NT, no distention Skin: Warm, dry Neuro: Cranial nerves II-XII grossly intact bilaterally. Motor grossly intact bilaterally Extremities: Right stump as pictured below Psych: Appropriate affect Results Labs 10/20/24 12:47 10/20/24 12:47 Labs: Laboratory Results - last 24 hr 10/20/24 12:47 MCV 93.2 MCH 31.4 MCHC 33.6 RDW 13.2 Plt Count 233 MPV 9.7 Immature Gran % (Auto) 0.4 Neut % (Auto) 70.6 Lymph % (Auto) 16.8 L Ceiba % (Auto) 8.8 Eos % (Auto) 2.8 Baso % (Auto) 0.6 Lymph # (Auto) 1.4 Ceiba # (Auto) 0.7 Eos # (Auto) 0.2 Baso # (Auto) 0.1 Abs Immat Gran (auto) 0.03 Absolute Neuts (auto) 5.7 Absolute Nucleated RBC 0.000 Nucleated RBC % (auto) 0.0 ESR 5 Anion Gap 10 L Estim Creat Clear Calc 74.5 Estimated GFR > 60 Random Glucose 94 Calcium 8.9 D Total Bilirubin 0.4 AST 21 ALT 16 Alkaline Phosphatase 75 C-Reactive Protein 0.52 H Total Protein 5.9 L Albumin 3.8 Imaging Radiologist's Impressions: Impressions Knee X-Ray 10/20/24 11:56 IMPRESSION: Possible osteomyelitis in the distal end of the remaining right tibia. Increasing diffuse osteopenia could be related to disuse. Electronically signed by: Alfredo Kumar MD 10/20/2024 01:11 PM EDT Assessment and Plan (1) Cellulitis of right lower extremity: Status: Resolved Plan Pt is a 64-year-old male with a PMH significant for?PAD s/p right BKA on 01/2024 with revision on 10/10/2024, paroxysmal AFib not on anticoagulation, COPD not on home O2, GERD, Palmer's esophagus, HLD, and BPH who presents to the ED for evaluation of worsening right stump pain and drainage from stump revision surgical site. Pt is admitted to the hospital for treatment and further evaluation of right stump cellulitis concerning for osteomyelitis. Right stump cellulitis concerning for osteomyelitis Recent stump revision on 10/10/2024 Erythema, pain, purulent drainage, x-ray concerning for acute osteomyelitis; ESR and CRP not significantly elevated No sepsis Will empirically treat with vancomycin and cefepime, day 1 General surgery consult Infectious disease consult Bradycardia EKG showing AFib with slow ventricular response; HR in the 40s and 50s in the ED Pt asymptomatic Hold metoprolol Monitor on telemetry Consider cardiology consult COPD Not in acute exacerbation Continue home inhalers PAD Continue aspirin, statin, gabapentin GERD PPI BPH Tamsulosin Full Code Attending:?Dr. Poe DVT Prophylaxis: Lovenox Pt will require a hospitalization of at least two nights for treatment of?right stump cellulitis concerning for osteomyelitis requiring IV antibiotics and specialist consultation with Infectious Disease and General surgery. Quality Stroke Does the patient have a stroke diagnosis?: No VTE Prior VTE?: No VTE Risk Level:: Medical - moderate - high VTE Device Contraindication: Treatment Not Indicated VTE Drug Contraindication: N/A - Med Ordered
[2024-10-20] MEDS: Nicotine 21 MG PATCH.TD24 TRANSDERMA (18:53)
--- NOTE | 2024-10-20 19:00 | PHA.PROG ---
Admission Date/Time: October 20, 2024 15:31 Indication: osteo Weight in k.5 kg Adjusted body weight in Kg: [place] body weight in Kg: Obesity Dosing Indication % IBW: Serum Creatinine - Last 168 Hours 10/20/24 12:47 Creatinine 1.07 Estimated CrCl and GFR - Last 168 Hours 10/20/24 12:47 Estim Creat Clear Calc 74.5 Estimated GFR > 60 Vancomycin Loading Dose: 2000 Current Vancomycin Dosing Regimen: 1000 Q24h Vancomycin Monitoring using AUC goal of 400 - 600 range with trough as surrogate marker: 586 Date and Time for next Vancomycin Level to be drawn: 10/21 @1400 Pharmacist Comments on Vancomycin Plan: due to the timing being during pharmacy off hours, a level will be drawn after the load and one dose of 1000 mg to ensure safety vs efficacy Vancomycin dosing will take advantage of [employer] as a clinical decision support tool that uses Bayesian modeling to calculate individual patient's pharmacokinetic parameters and forecast the patient's drug concentration time course with the target goal AUC 24 range of 400 - 600 mg/L/hr.
[2024-10-20 20:00] VITALS: BP 137/62; PULSE 55; RESP 16; TEMP 36.3; O2SAT 98
[2024-10-20] MEDS: 0.9 % Sodium Chloride Flush 3 ML SYRINGE IVFLUSH (21:16)
[2024-10-21] VITALS (8 sets, daily range): BP systolic 114–144; BP diastolic 58–74; PULSE 47–62; RESP 16–20; TEMP 36.3–37.1; O2SAT 95–100
[2024-10-21 07:24] LABS: Hematocrit 40.9 % (42.0-52.0); Hemoglobin 13.9 g/dl (14.0-18.0); Mean Corpuscular HGB Conc 34.0 g/dl (31.0-36.0); Mean Corpuscular Hemoglobin 31.4 pg (27.0-33.0); Mean Corpuscular Volume 92.3 fL (80.0-98.0); NRBC Abs Auto 0.000 X10*3/uL (0.0-0.012); NRBC Pct Auto 0.0 /100WBC (0.0-0.2); Platelet Count 211 X10*3/uL (160-400); Red Blood Count 4.43 X10*6/uL (4.60-5.80); White Blood Count 6.8 X10*3/uL (4.8-10.8)
[2024-10-21 07:37] LABS: Anion Gap 12 (12-20); Blood Urea Nitrogen 13 mg/dL (9-16); Calcium 8.6 mg/dL (8.4-10.2); Carbon Dioxide 26 mmol/L (22-29); Chloride 108 mmol/L (96-108); Creatinine Clr Calc Pharmacy 84.8; Estimated Glomerular Filt Rate > 60; Potassium 4.3 mmol/L (3.3-5.1); Sodium 142 mmol/L (135-145)
[2024-10-21] MEDS: Aspirin Enteric Coated 81 MG TABLET.DR PO (08:01)
[2024-10-21] MEDS: cefEPime HCl/D5W 2 GM/50 ML PIGGYBACK IV ×2 (08:01→16:17)
[2024-10-21] MEDS: 0.9 % Sodium Chloride Flush 3 ML SYRINGE IVFLUSH ×2 (08:02→20:11)
[2024-10-21] MEDS: Nicotine 21 MG PATCH.TD24 TRANSDERMA (08:02)
[2024-10-21] MEDS: oxyCODONE HCl Immed Release 5 MG TABLET PO ×4 (08:02→21:39)
--- NOTE | 2024-10-21 09:19 | MHC.CM.PN ---
Addendum entered by Iveth Jackson 10/21/24 09:25: Patient's Daughter, Karolina, is the HCP. Original Note: CM met with Patient at bedside and addressed IMM with him, providing Patient with the original and a copy has been placed on the chart. Patient lives in an apartment with his Adult Son, Son's Girlfriend & his young Grandson. Patient is active with [facility] in [facility] and home/resume said services is the goal. CM has initiated and will follow for dc planning. Patient has had [facility] in the past and he was able to manage home IV ABX himself. PCP is Dr. Quinton Callahan and Patient's Son will transport to home @ dc. Patient has a (R) BKA and uses a w/c for mobility.
--- NOTE | 2024-10-21 12:47 | P.PNIM_ITS ---
Subjective Subjective Date of Service: 10/21/24 Interval History: Some breakthrough pain last night Currently pain better controlled No fever or chills No acute events overnight Seen and evaluated by General surgery who feel x-ray findings are post operative changes rather than osteomyelitis Review of Systems Review of Systems: Yes all other systems are reviewed and are negative Physical Exam 2 Exam: Exam: General: AOx3, no acute distress Resp: CTA bilaterally CVS: S1, S2, RRR GI: +BS, NT, no distention Skin: Warm, dry Neuro: Cranial nerves II-XII grossly intact bilaterally. Motor grossly intact bilaterally Extremities: Right stump with dehisced wound with small amount of purulent drainage and surrounding area of erythema, improved from yesterday. Psych: Appropriate affect Vital Signs: Vital Signs: Last Vital Signs Temp 98.7 F 10/21/24 11:31 Pulse 62 10/21/24 11:31 Resp 20 10/21/24 11:31 BP 119/64 10/21/24 11:31 Pulse Ox 96 10/21/24 11:31 O2 Del Method Room Air 10/21/24 11:31 BMI result Body Mass Index 26.5 Objective Data Active Medications Acetaminophen (Acetaminophen 325 Mg Tablet) 650 mg PO Q6H PRN PRN Reason: Pain, Mild 1-3,fever,headache Last Admin: 10/21/24 10:49 Dose: 650 mg Documented By: RAJINDER Albuterol Sulfate (Albuterol Sulfate 90 Mcg 8 Gm Inhaler) 2 puff INHALE RQ4H PRN PRN Reason: shortness of breath or wheezing Aspirin (Aspirin Enteric Coated 81 Mg Tablet.) 81 mg PO DAILY [facility] Last Admin: 10/21/24 08:01 Dose: 81 mg Documented By: RAJINDER Atorvastatin Calcium (Atorvastatin Calcium 10 Mg Tablet) 10 mg PO DAILY [facility] Last Admin: 10/21/24 08:01 Dose: 10 mg Documented By: RAJINDER Calcium Carbonate (Calcium Carbonate 750 Mg Tab.Chew) 750 mg PO Q4H PRN PRN Reason: Heartburn Enoxaparin Sodium (Enoxaparin Sodium 40 Mg/0.4 Ml Syringe) 40 mg SUBCUT Q24H [facility] Last Admin: 10/20/24 18:52 Dose: 40 mg Documented By: RAJINDER Gabapentin (Gabapentin 300 Mg Capsule) 600 mg PO BID [facility] Last Admin: 10/21/24 08:01 Dose: 600 mg Documented By: RAJINDER Vancomycin HCl 1,000 mg/ (Sodium Chloride) 270 mls @ 270 mls/hr IV Q12H [facility] Last Infusion: 10/21/24 05:12 Dose: Infused Documented By: DERRELL Cefepime HCl (Maxipime) 2 gm in 50 mls @ 100 mls/hr IV Q8H [facility] Last Infusion: 10/21/24 09:07 Dose: Infused Documented By: RAJINDER Magnesium Hydroxide (Milk Of Magnesia 30 Ml Oral.Susp) 30 ml PO DAILY PRN PRN Reason: Constipation Melatonin (Melatonin 3 Mg Tablet) 6 mg PO BEDTIME PRN PRN Reason: Insomnia Morphine Sulfate (Morphine Sulfate 4 Mg/Ml Cartridge) 4 mg IVPUSH Q4H PRN; Protocol PRN Reason: Pain, Severe (Pain Scale 7-10) Multivitamins/Vitamin C (Multivitamin Tablet) 1 tab PO DAILY [facility] Last Admin: 10/21/24 08:02 Dose: 1 tab Documented By: RAJINDER Nicotine (Nicotine 21 Mg Patch.Td24) 21 mg TRANSDERMA DAILY [facility] Last Admin: 10/21/24 08:02 Dose: 21 mg Documented By: RAJINDER Oxycodone HCl (Oxycodone Hcl Immed Release 5 Mg Tablet) 5 mg PO Q4H PRN PRN Reason: Pain, Moderate(Pain Scale 4-6) Last Admin: 10/21/24 08:02 Dose: 5 mg Documented By: RAJINDER Pantoprazole Sodium (Pantoprazole Sodium 20 Mg Tablet.) 80 mg PO DAILY@0630 [facility] Last Admin: 10/21/24 08:01 Dose: 80 mg Documented By: RAJINDER Pharmacy Consult (Consult Rx Vancomycin Dosing) 1 each MISCELLANE DAILY PRN PRN Reason: Consult order Sodium Chloride (0.9 % Sodium Chloride Flush 3 Ml Syringe) 3 ml IVFLUSH QSHIFT [facility] Last Admin: 10/21/24 08:02 Dose: 3 ml Documented By: RAJINDER Tamsulosin HCl (Tamsulosin Hcl 0.4 Mg Capsule) 0.8 mg PO DAILY [facility] Last Admin: 10/21/24 08:01 Dose: 0.8 mg Documented By: HO.LESSARL Labs 10/21/24 06:27 10/21/24 06:27 Labs: Laboratory Results - last 24 hr 10/20/24 10/21/24 12:47 06:27 MCV 93.2 92.3 MCH 31.4 31.4 MCHC 33.6 34.0 RDW 13.2 13.2 Plt Count 233 211 MPV 9.7 10.3 Immature Gran % (Auto) 0.4 Neut % (Auto) 70.6 Lymph % (Auto) 16.8 L [place] % (Auto) 8.8 Eos % (Auto) 2.8 Baso % (Auto) 0.6 Lymph # (Auto) 1.4 [place] # (Auto) 0.7 Eos # (Auto) 0.2 Baso # (Auto) 0.1 Abs Immat Gran (auto) 0.03 Absolute Neuts (auto) 5.7 Absolute Nucleated RBC 0.000 0.000 Nucleated RBC % (auto) 0.0 0.0 ESR 5 Anion Gap 10 L 12 Estim Creat Clear Calc 74.5 84.8 Estimated GFR > 60 > 60 Random Glucose 94 85 Calcium 8.9 D 8.6 Total Bilirubin 0.4 AST 21 ALT 16 Alkaline Phosphatase 75 C-Reactive Protein 0.52 H Total Protein 5.9 L Albumin 3.8 TSH 1.34 Microbiology Microbiology Results: Microbiology 10/20/24 14:58 Gram Stain - Final Incision Routine Culture - Preliminary Culture in progress. Assessment and Plan (1) Cellulitis of right lower extremity: Status: Resolved Plan Pt is a 64-year-old male with a PMH significant for?PAD s/p right BKA on 01/2024 with revision on 10/10/2024, paroxysmal AFib not on anticoagulation, COPD not on home O2, GERD, Palmer's esophagus, HLD, and BPH who presents to the ED for evaluation of worsening right stump pain and drainage from stump revision surgical site. Pt is admitted to the hospital for treatment and further evaluation of right stump cellulitis concerning for osteomyelitis. Right stump cellulitis concerning for osteomyelitis Recent stump revision on 10/10/2024 Erythema, pain, purulent drainage, x-ray concerning for acute osteomyelitis; ESR and CRP not significantly elevated No sepsis Will empirically treat with vancomycin and cefepime, day 2 General surgery consulted, think x-ray findings likely secondary to recent surgical vision, not osteomyelitis Infectious disease consult Wound care consult Hold off on MRI pending ID recommendations Bradycardia EKG showing AFib with slow ventricular response; HR in the 40s and 50s in the ED Pt asymptomatic Hold metoprolol Monitor on telemetry Consider cardiology consult if persists COPD Not in acute exacerbation Continue home inhalers PAD Continue aspirin, statin, gabapentin GERD PPI BPH Tamsulosin Full Code DVT Prophylaxis: Lovenox Pt requires additional hospitalization due to need for IV antibiotics and Infectious Disease consultation for possible additional workup for long-term IV antibiotics. Quality Stroke Does the patient have a stroke diagnosis?: No VTE Prior VTE?: No VTE Risk Level:: Medical - moderate - high VTE Device Contraindication: Treatment Not Indicated VTE Drug Contraindication: N/A - Med Ordered
--- NOTE | 2024-10-21 14:00 | HO.WOUND ---
Wound Consult: Initial 64yr old male admitted to [facility] on 10/20/24- See progress notes and H&P for detailed history. Wound consult placed for right BKA. Patient agreeable to assessment and photo documentation. patient with history of multiple vascular procedures and rigth BKA 01/2024, subsequently underwent revision due to presence of osteo 10/10/24. patient reports noting drainage and increased pain from the wound and was encouraged to come to the ER by visiting nurse. followed by Dr. Knott. Etiology: dehisced surgical incision Measurements: 1cm x 5cm x 1cm Wound Bed: moist pink/yellow, probes to bone, sutures and lazarus intact, with two lazarus loose centrally Drainage / Odor: creamy yellow, small/moderate, no odor Edges: ? attached Lucinda wound: ? No Induration, Fluctuance or Warmth noted, mild localized redness Pain: patient reports pain, endorses pain with wound assessment Goals of Treatment: ? moist wound healing Recommendations: 1. Turn and Reposition every 2 hours and as needed for patient comfort. Use pillows or wedges to support off loading positions. 2. Off Load all bony prominences with use of pillows and heel boots if needed. Apply Preventative foams where needed. 3. Monitor for incontinence and moisture control, use barrier creams when needed for prevention and treatment. 4. Provide adequate and supplemental nutrition. 5. Order or Continue low air loss mattress. 6. When applicable maintain blood glucose levels per Providers order. Right BKA: cleansed with normal saline, apply durafiber ag, cover with ABD pad, secure with stretch netting. Re-consult wound care Nurse for wound deterioration or wound changes.
--- NOTE | 2024-10-21 14:26 | HE.PHANOTE ---
Re: Pedro Renal function is improving. Trough returned at 12.7. Continue current dose of 1g q12h with predicted trough 15.7, predicted AUC 482. Next trough 10/22 @ 1400.
--- NOTE | 2024-10-21 14:55 | P.PNGS_ITS ---
Subjective Subjective Date of Service: 10/21/24 Interval history: No new complaints No fever No significant pain on BKA stump Physical Exam 2 Vital Signs: Vital Signs: Last Vital Signs Temp 98.7 F 10/21/24 11:31 Pulse 62 10/21/24 11:31 Resp 20 10/21/24 11:31 BP 119/64 10/21/24 11:31 Pulse Ox 96 10/21/24 11:31 O2 Del Method Room Air 10/21/24 11:31 BMI result Body Mass Index 26.5 Const: General: comfortable and no acute distress Resp: Effort & Inspection: normal respiratory effort Cardio: Rate: regular rate GI: Palpation (GI): Soft to palpation, not firm and nontender Extrem: Other: BKA stump with some he had separation, scanty drainage, mild redness on the skin edges Objective Data Active Medications Acetaminophen (Acetaminophen 325 Mg Tablet) 650 mg PO Q6H PRN PRN Reason: Pain, Mild 1-3,fever,headache Last Admin: 10/21/24 10:49 Dose: 650 mg Documented By: RAJINDER Albuterol Sulfate (Albuterol Sulfate 90 Mcg 8 Gm Inhaler) 2 puff INHALE RQ4H PRN PRN Reason: shortness of breath or wheezing Aspirin (Aspirin Enteric Coated 81 Mg Tablet.Dr) 81 mg PO DAILY [facility] Last Admin: 10/21/24 08:01 Dose: 81 mg Documented By: RAJINDER Atorvastatin Calcium (Atorvastatin Calcium 10 Mg Tablet) 10 mg PO DAILY [facility] Last Admin: 10/21/24 08:01 Dose: 10 mg Documented By: RAJINDER Calcium Carbonate (Calcium Carbonate 750 Mg Tab.Chew) 750 mg PO Q4H PRN PRN Reason: Heartburn Enoxaparin Sodium (Enoxaparin Sodium 40 Mg/0.4 Ml Syringe) 40 mg SUBCUT Q24H [facility] Last Admin: 10/20/24 18:52 Dose: 40 mg Documented By: RAJINDER Gabapentin (Gabapentin 300 Mg Capsule) 600 mg PO BID [facility] Last Admin: 10/21/24 08:01 Dose: 600 mg Documented By: RAJINDER Vancomycin HCl 1,000 mg/ (Sodium Chloride) 270 mls @ 270 mls/hr IV Q12H [facility] Last Infusion: 10/21/24 05:12 Dose: Infused Documented By: DERRELL Cefepime HCl (Maxipime) 2 gm in 50 mls @ 100 mls/hr IV Q8H [facility] Last Infusion: 10/21/24 09:07 Dose: Infused Documented By: RAJINDER Magnesium Hydroxide (Milk Of Magnesia 30 Ml Oral.Susp) 30 ml PO DAILY PRN PRN Reason: Constipation Melatonin (Melatonin 3 Mg Tablet) 6 mg PO BEDTIME PRN PRN Reason: Insomnia Morphine Sulfate (Morphine Sulfate 4 Mg/Ml Cartridge) 4 mg IVPUSH Q4H PRN; Protocol PRN Reason: Pain, Severe (Pain Scale 7-10) Multivitamins/Vitamin C (Multivitamin Tablet) 1 tab PO DAILY [facility] Last Admin: 10/21/24 08:02 Dose: 1 tab Documented By: RAJINDER Nicotine (Nicotine 21 Mg Patch.Td24) 21 mg TRANSDERMA DAILY [facility] Last Admin: 10/21/24 08:02 Dose: 21 mg Documented By: RAJINDER Oxycodone HCl (Oxycodone Hcl Immed Release 5 Mg Tablet) 5 mg PO Q4H PRN PRN Reason: Pain, Moderate(Pain Scale 4-6) Last Admin: 10/21/24 13:13 Dose: 5 mg Documented By: RAJINDER Pantoprazole Sodium (Pantoprazole Sodium 20 Mg Tablet.) 80 mg PO DAILY@0630 [facility] Last Admin: 10/21/24 08:01 Dose: 80 mg Documented By: RAJINDER Pharmacy Consult (Consult Rx Vancomycin Dosing) 1 each MISCELLANE DAILY PRN PRN Reason: Consult order Sodium Chloride (0.9 % Sodium Chloride Flush 3 Ml Syringe) 3 ml IVFLUSH QSHIFT [facility] Last Admin: 10/21/24 08:02 Dose: 3 ml Documented By: RAJINDER Tamsulosin HCl (Tamsulosin Hcl 0.4 Mg Capsule) 0.8 mg PO DAILY [facility] Last Admin: 10/21/24 08:01 Dose: 0.8 mg Documented By: RAJINDER Labs 10/21/24 06:27 10/21/24 06:27 Labs: Laboratory Results - last 24 hr 10/21/24 10/21/24 06:27 14:01 MCV 92.3 MCH 31.4 MCHC 34.0 RDW 13.2 Plt Count 211 MPV 10.3 Absolute Nucleated RBC 0.000 Nucleated RBC % (auto) 0.0 Anion Gap 12 Estim Creat Clear Calc 84.8 Estimated GFR > 60 Random Glucose 85 Calcium 8.6 TSH 1.34 Random Vancomycin 12.7 L Microbiology Microbiology Results: Microbiology 10/20/24 14:58 Gram Stain - Final Incision Routine Culture - Preliminary Culture in progress. Procedures Date of Service Date of Service: 10/21/24 Progress Note: A&P Assessment and plan (1) Below-knee amputation of right lower extremity: Status: Acute Assessment and Plan: Note of some skin redness, scanty drainage Wound care as per wound care nurse - durafiber dressing changes for now Antibiotics as well Otherwise patient looks clinically well Continue current care Discussed with wound care nurse Time Spent With Patient Time: Total time managing care of this patient today ____ minutes. Quality Stroke Does the patient have a stroke diagnosis?: No VTE Prior VTE?: No VTE Risk Level:: Medical - moderate - high VTE Device Contraindication: Treatment Not Indicated VTE Drug Contraindication: N/A - Med Ordered
[2024-10-22] MEDS: cefEPime HCl/D5W 2 GM/50 ML PIGGYBACK IV ×4 (00:04→23:43)
[2024-10-22 03:14] VITALS: BP 136/73; PULSE 65; RESP 18; TEMP 36.2; O2SAT 94
[2024-10-22] MEDS: oxyCODONE HCl Immed Release 5 MG TABLET PO ×4 (03:26→21:20)
[2024-10-22 07:08] LABS: Creatinine Clr Calc Pharmacy 73.1; Estimated Glomerular Filt Rate > 60
[2024-10-22 07:43] VITALS: BP 140/72; PULSE 52; RESP 18; TEMP 36.5; O2SAT 97
[2024-10-22] MEDS: Nicotine 21 MG PATCH.TD24 TRANSDERMA (09:45)
[2024-10-22] MEDS: Aspirin Enteric Coated 81 MG TABLET.DR PO (09:45)
[2024-10-22] MEDS: 0.9 % Sodium Chloride Flush 3 ML SYRINGE IVFLUSH ×3 (09:46→21:22)
[2024-10-22 11:34] VITALS: BP 136/75; PULSE 53; RESP 18; TEMP 36.4; O2SAT 96
--- NOTE | 2024-10-22 11:59 | HO.PM.IMPN ---
Subjective Subjective Date of Service: 10/22/24 Interval History: Pt seen resting comfortably in bed No acute events overnight Doing well, pain well-controlled No acute complaints Review of Systems Review of Systems: Yes all other systems are reviewed and are negative Physical Exam Exam: Exam: General: AOx3, no acute distress Resp: CTA bilaterally CVS: S1, S2, RRR GI: +BS, NT, no distention Skin: Warm, dry Neuro: Cranial nerves II-XII grossly intact bilaterally. Motor grossly intact bilaterally Extremities: Right stump with dehisced wound with small amount of purulent drainage. Small area of erythema, improved from yesterday. Psych: Appropriate affect Vital Signs: Vital Signs: Last Vital Signs Temp 97.5 F 10/22/24 11:34 Pulse 53 10/22/24 11:34 Resp 18 10/22/24 11:34 BP 136/75 10/22/24 11:34 Pulse Ox 96 10/22/24 11:34 O2 Del Method Room Air 10/22/24 11:34 BMI result Body Mass Index 26.5 Objective Data Active Medications Acetaminophen (Acetaminophen 325 Mg Tablet) 650 mg PO Q6H PRN PRN Reason: Pain, Mild 1-3,fever,headache Last Admin: 10/21/24 17:29 Dose: 650 mg Documented By: RAJINDER Albuterol Sulfate (Albuterol Sulfate 90 Mcg 8 Gm Inhaler) 2 puff INHALE RQ4H PRN PRN Reason: shortness of breath or wheezing Aspirin (Aspirin Enteric Coated 81 Mg Tablet.) 81 mg PO DAILY [facility] Last Admin: 10/22/24 09:45 Dose: 81 mg Documented By: WALDEMAR Atorvastatin Calcium (Atorvastatin Calcium 10 Mg Tablet) 10 mg PO DAILY [facility] Last Admin: 10/22/24 09:45 Dose: 10 mg Documented By: WALDEMAR Calcium Carbonate (Calcium Carbonate 750 Mg Tab.Chew) 750 mg PO Q4H PRN PRN Reason: Heartburn Enoxaparin Sodium (Enoxaparin Sodium 40 Mg/0.4 Ml Syringe) 40 mg SUBCUT Q24H [facility] Last Admin: 10/21/24 17:30 Dose: 40 mg Documented By: RAJINDER Gabapentin (Gabapentin 300 Mg Capsule) 600 mg PO BID [facility] Last Admin: 10/22/24 09:45 Dose: 600 mg Documented By: WALDEMAR Vancomycin HCl 1,000 mg/ (Sodium Chloride) 270 mls @ 270 mls/hr IV Q12H [facility] Last Infusion: 10/22/24 04:29 Dose: Infused Documented By: MEGAN Cefepime HCl (Maxipime) 2 gm in 50 mls @ 100 mls/hr IV Q8H [facility] Last Infusion: 10/22/24 10:16 Dose: Infused Documented By: WALDEMAR Magnesium Hydroxide (Milk Of Magnesia 30 Ml Oral.Susp) 30 ml PO DAILY PRN PRN Reason: Constipation Melatonin (Melatonin 3 Mg Tablet) 6 mg PO BEDTIME PRN PRN Reason: Insomnia Morphine Sulfate (Morphine Sulfate 4 Mg/Ml Cartridge) 4 mg IVPUSH Q4H PRN; Protocol PRN Reason: Pain, Severe (Pain Scale 7-10) Last Admin: 10/22/24 00:04 Dose: 4 mg Documented By: DOMINIQUE Multivitamins/Vitamin C (Multivitamin Tablet) 1 tab PO DAILY [facility] Last Admin: 10/22/24 09:45 Dose: 1 tab Documented By: WALDEMAR Nicotine (Nicotine 21 Mg Patch.Td24) 21 mg TRANSDERMA DAILY [facility] Last Admin: 10/22/24 09:45 Dose: 21 mg Documented By: WALDEMAR Oxycodone HCl (Oxycodone Hcl Immed Release 5 Mg Tablet) 5 mg PO Q4H PRN PRN Reason: Pain, Moderate(Pain Scale 4-6) Last Admin: 10/22/24 09:45 Dose: 5 mg Documented By: WALDEMAR Pantoprazole Sodium (Pantoprazole Sodium 20 Mg Tablet.) 80 mg PO DAILY@0630 [facility] Last Admin: 10/22/24 06:19 Dose: 80 mg Documented By: MEGAN Pharmacy Consult (Consult Rx Vancomycin Dosing) 1 each MISCELLANE DAILY PRN PRN Reason: Consult order Sodium Chloride (0.9 % Sodium Chloride Flush 3 Ml Syringe) 3 ml IVFLUSH QSHIFT [facility] Last Admin: 10/22/24 09:46 Dose: 3 ml Documented By: WALDEMAR Tamsulosin HCl (Tamsulosin Hcl 0.4 Mg Capsule) 0.8 mg PO DAILY [facility] Last Admin: 10/22/24 09:45 Dose: 0.8 mg Documented By: WALDEMAR Labs 10/21/24 06:27 10/22/24 05:47 Labs: Laboratory Results - last 24 hr 10/21/24 10/22/24 14:01 05:47 Hold Purple Top SEE NOTE Estim Creat Clear Calc 73.1 Estimated GFR > 60 Random Vancomycin 12.7 L Microbiology Microbiology Results: Microbiology 10/20/24 14:58 Gram Stain - Final Incision Routine Culture - Preliminary Pseudomonas species 10/20/24 14:56 Blood Culture - Preliminary Blood - Venous No growth after 24 hours. 10/20/24 14:56 Blood Culture - Preliminary Blood - Venous No growth after 24 hours. Assessment and Plan (1) Cellulitis of right lower extremity: Status: Acute Plan Pt is a 64-year-old male with a PMH significant for?PAD s/p right BKA on 01/2024 with revision on 10/10/2024, paroxysmal AFib not on anticoagulation, COPD not on home O2, GERD, Palmer's esophagus, HLD, and BPH who presents to the ED for evaluation of worsening right stump pain and drainage from stump revision surgical site. Pt is admitted to the hospital for treatment and further evaluation of right stump cellulitis concerning for osteomyelitis. Right stump cellulitis concerning for osteomyelitis Recent stump revision on 10/10/2024 Erythema, pain, purulent drainage, x-ray concerning for acute osteomyelitis; ESR and CRP not significantly elevated No sepsis Will empirically treat with vancomycin and cefepime, day 3 General surgery consulted, think x-ray findings likely secondary to recent surgical vision, not osteomyelitis Infectious disease consult; will wait on MRI pending ID recommendations Wound care consult Bradycardia EKG showing AFib with slow ventricular response; HR in the 40s and 50s in the ED Pt asymptomatic Hold metoprolol Monitor on telemetry COPD Not in acute exacerbation Continue home inhalers PAD Continue aspirin, statin, gabapentin GERD PPI BPH Tamsulosin Full Code DVT Prophylaxis: Lovenox Pt requires additional hospitalization due to need for IV antibiotics and Infectious Disease consultation for possible additional workup for long-term IV antibiotics. Quality Stroke Does the patient have a stroke diagnosis?: No VTE Prior VTE?: No VTE Risk Level:: Medical - moderate - high VTE Device Contraindication: Treatment Not Indicated VTE Drug Contraindication: N/A - Med Ordered
[2024-10-22 16:00] VITALS: BP 122/74; PULSE 50; RESP 20; TEMP 36.9; O2SAT 96
--- NOTE | 2024-10-22 16:29 | W.PM.IDCN ---
History of Present Illness Data of Consult Service Date: 10/22/24 Requesting physician: David Berry Primary Care Provider: Quinton Callahan MD HPI Reason for consult: right stump persistent infection He has had unfortunately right limb infection persistently and most recently failure to heal stump. He has completed six weeks Vancomycin and two months Doxycycline in spring. He has persistent drainage and debridement per Dr Knott. He has now Pseudomonas superficial. Final cultures pending. Review of Systems Review of Systems: Yes all other systems are reviewed and are negative [facility] Past Medical History Medical History Osteomyelitis Krish angina Left bundle branch block Bakers cyst Nicotine dependence, cigarettes, uncomplicated Arthritis BPH (benign prostatic hyperplasia) Elevated cholesterol Complex regional pain syndrome i of right lower limb S/P angiogram of extremity (07/18/23) Atrial fibrillation History of Palmer's esophagus Splenic vein thrombosis History of femoral angiogram GERD (gastroesophageal reflux disease) COPD (chronic obstructive pulmonary disease) Peripheral arterial disease Family History Family history: reviewed and not pertinent Surgical History Surgical History Hx of BKA History of tonsillectomy Hx of oral surgery Hx of tracheostomy History of esophagogastroduodenoscopy (EGD) H/O colonoscopy Social History Social History Household Members: Family and Children Household Members Other:: Son, son girlfriend, grandbaby Housing: Apartment Housing Other:: 3 stairs to climb Are you a primary interior plant caretaker to a significant other at home: No Do you presently have visiting nurse or other home services: Yes Comment: Dr Knott made aware of absent pulse and sensation in right foot Patient Tobacco Use Status: Current everyday Tobacco user Tobacco use type: Cigarette Cigarette Packs Per Day: 1 Cigarettes Per Day: 20.0 Years Smoked: 50 Smoked in Last 30 Days: Yes e-Cigarette/Vaping Use: Never Used Patient Interested in Nicotine Replacement: Yes Patient Given Instructions on How to Stop Smoking: Yes Date Education Initiated: 10/20/24 Second Hand Smoke Exposure: No Substance Use Type: Marijuana Currently Displaying Signs/Symptoms of Drug Intoxication Withdrawal: No Advance Directives: Yes Advance Directives on File: Yes Advance Directives Date on File: 01/17/24 Do you have a plan to hurt others: No Plan Recently lost weight without trying: No Nutrition Risks: No Nutritional Risk Poor oral hygiene: No service: Yes Meds Allergies Allergy/AdvReac Type Severity Reaction Status Date / Time No Known Allergies Allergy Verified 10/20/24 12:28 Active Medications: Current Medications Acetaminophen (Acetaminophen 325 Mg Tablet) 650 mg PO Q6H PRN PRN Reason: Pain, Mild 1-3,fever,headache Last Admin: 10/21/24 17:29 Dose: 650 mg Albuterol Sulfate (Albuterol Sulfate 90 Mcg 8 Gm Inhaler) 2 puff INHALE RQ4H PRN PRN Reason: shortness of breath or wheezing Aspirin (Aspirin Enteric Coated 81 Mg Tablet.Dr) 81 mg PO DAILY [facility] Last Admin: 10/22/24 09:45 Dose: 81 mg Atorvastatin Calcium (Atorvastatin Calcium 10 Mg Tablet) 10 mg PO DAILY [facility] Last Admin: 10/22/24 09:45 Dose: 10 mg Calcium Carbonate (Calcium Carbonate 750 Mg Tab.Chew) 750 mg PO Q4H PRN PRN Reason: Heartburn Enoxaparin Sodium (Enoxaparin Sodium 40 Mg/0.4 Ml Syringe) 40 mg SUBCUT Q24H [facility] Last Admin: 10/21/24 17:30 Dose: 40 mg Gabapentin (Gabapentin 300 Mg Capsule) 600 mg PO BID [facility] Last Admin: 10/22/24 09:45 Dose: 600 mg Cefepime HCl (Maxipime) 2 gm in 50 mls @ 100 mls/hr IV Q8H [facility] Last Infusion: 10/22/24 16:08 Dose: Infused Vancomycin HCl 1,250 mg/ (Sodium Chloride) 250 mls @ 166.667 mls/hr IV Q12H [facility] Last Admin: 10/22/24 16:06 Dose: 166.67 mls/hr Magnesium Hydroxide (Milk Of Magnesia 30 Ml Oral.Susp) 30 ml PO DAILY PRN PRN Reason: Constipation Melatonin (Melatonin 3 Mg Tablet) 6 mg PO BEDTIME PRN PRN Reason: Insomnia Morphine Sulfate (Morphine Sulfate 4 Mg/Ml Cartridge) 4 mg IVPUSH Q4H PRN; Protocol PRN Reason: Pain, Severe (Pain Scale 7-10) Last Admin: 10/22/24 00:04 Dose: 4 mg Multivitamins/Vitamin C (Multivitamin Tablet) 1 tab PO DAILY [facility] Last Admin: 10/22/24 09:45 Dose: 1 tab Nicotine (Nicotine 21 Mg Patch.Td24) 21 mg TRANSDERMA DAILY [facility] Last Admin: 10/22/24 09:45 Dose: 21 mg Oxycodone HCl (Oxycodone Hcl Immed Release 5 Mg Tablet) 5 mg PO Q4H PRN PRN Reason: Pain, Moderate(Pain Scale 4-6) Last Admin: 10/22/24 14:21 Dose: 5 mg Pantoprazole Sodium (Pantoprazole Sodium 20 Mg Tablet.Dr) 80 mg PO DAILY@629 [facility] Last Admin: 10/22/24 06:19 Dose: 80 mg Pharmacy Consult (Consult Rx Vancomycin Dosing) 1 each MISCELLANE DAILY PRN PRN Reason: Consult order Sodium Chloride (0.9 % Sodium Chloride Flush 3 Ml Syringe) 3 ml IVFLUSH QSHIFT [facility] Last Admin: 10/22/24 15:40 Dose: 3 ml Tamsulosin HCl (Tamsulosin Hcl 0.4 Mg Capsule) 0.8 mg PO DAILY [facility] Last Admin: 10/22/24 09:45 Dose: 0.8 mg Home Medications ?Medication ?Instructions ?Recorded ?Confirmed ?Last Taken ?Type aspirin 81 mg tablet,delayed 81 mg PO DAILY 01/12/20 10/20/24 10/20/24 History release (Luis Low Dose Aspirin) pantoprazole 40 mg tablet,delayed 80 mg PO DAILY@0630 01/12/20 10/20/24 10/20/24 History release tamsulosin 0.4 mg capsule 0.8 mg PO DAILY 01/12/20 10/20/24 10/20/24 History atorvastatin 10 mg tablet 10 mg PO DAILY 05/04/20 10/20/24 10/20/24 History livvsdvi-nz-gykdc 300 mcg-K 60 1 tab PO DAILY 10/02/23 10/20/24 10/20/24 History mcg-lycop 600 mcg-lutein 300 mcg tablet (Centrum Silver Men) metoprolol succinate 25 mg 25 mg PO DAILY 12/17/23 10/20/24 10/20/24 History tablet,extended release 24 hr albuterol sulfate 90 mcg/actuation 2 puff inhalation Q4H PRN 01/07/24 10/20/24 Unknown History aerosol inhaler shortness of breath or wheezing gabapentin 300 mg capsule 600 mg PO BID 05/26/24 10/20/24 10/20/24 History acetaminophen 500 mg tablet 1,000 mg PO Q6H PRN Pain 10/07/24 10/20/24 Unknown History (Tylenol Extra Strength) Physical Exam Vital Signs: Vital Signs: Last Vital Signs Temp 98.4 F 10/22/24 16:00 Pulse 50 10/22/24 16:00 Resp 20 10/22/24 16:00 BP 122/74 10/22/24 16:00 Pulse Ox 96 10/22/24 16:00 O2 Del Method Room Air 10/22/24 16:00 BMI result Body Mass Index 26.5 Const: General: cooperative HEENT: Head: Yes normal to inspection Face and sinus: Yes normal facial exam Mouth: Normal oral and palatal mucosa present Teeth and gingiva: dentition normal Eyes: General: appearance normal, both eyes and all related structures Pupils: Equal, round and reactive pupils present Resp: Effort & Inspection: normal respiratory effort Cardio: Rate: regular rate Rhythm: regular rhythm GI: Palpation (GI): Soft to palpation and nontender : General: Yes no CVA tenderness Back/Spine/Pelvis: Back: no CVA tenderness Skin: General skin exam: no rashes or lesions noted Neuro: General: moves all extremities Cranial nerves: Yes Equal, round and reactive pupils present Extrem: Other: right BKA stump wrapped,no spreading cellulitis Psych: Appearance: grossly normal Results Labs 10/21/24 06:27 10/22/24 05:47 Labs: BMP 10/22/24 05:47 Creatinine 1.09 Microbiology Microbiology Results: Microbiology 10/20/24 14:58 Incision Gram Stain - Final 10/20/24 14:58 Incision Routine Culture - Preliminary Pseudomonas species 10/20/24 14:56 Blood - Venous Blood Culture - Preliminary No growth after 24 hours. 10/20/24 14:56 Blood - Venous Blood Culture - Preliminary No growth after 24 hours. Assessment and Plan (1) Below-knee amputation of right lower extremity: Qualifiers: Encounter type: subsequent encounter Qualified Code(s): S88.111D - Complete traumatic amputation at level between knee and ankle, right lower leg, subsequent encounter Status: Acute (2) Cellulitis of right lower extremity: Status: Acute Plan Would give Levaquin if superficial infection due to Pseudomonas sensitive. If not sensitive would give specific antibiotic IV it is sensitive to for 14 days. If recurs or ongoing nonhealing ?AKA(hopefully not) as OM chronic.
[2024-10-22 20:00] VITALS: BP 137/65; PULSE 68; RESP 16; TEMP 36.3; O2SAT 94
[2024-10-22] MEDS: Milk of Magnesia 30 ML ORAL.SUSP PO (21:21)
[2024-10-22 23:44] VITALS: BP 143/64; PULSE 63; RESP 16; TEMP 36; O2SAT 94
[2024-10-23] MEDS: oxyCODONE HCl Immed Release 5 MG TABLET 10 MG PO (01:38)
[2024-10-23 03:55] VITALS: BP 127/60; PULSE 58; RESP 16; TEMP 35.7; O2SAT 95
[2024-10-23] MEDS: oxyCODONE HCl Immed Release 5 MG TABLET PO ×2 (06:42→11:16)
[2024-10-23 07:55] LABS: Creatinine Clr Calc Pharmacy 69.9; Estimated Glomerular Filt Rate > 60
[2024-10-23] MEDS: Aspirin Enteric Coated 81 MG TABLET.DR PO (07:56)
[2024-10-23 07:58] VITALS: BP 133/72; PULSE 59; RESP 18; TEMP 36.2; O2SAT 95
[2024-10-23] MEDS: Nicotine 21 MG PATCH.TD24 TRANSDERMA (07:59)
[2024-10-23] MEDS: cefEPime HCl/D5W 2 GM/50 ML PIGGYBACK IV (07:59)
[2024-10-23] MEDS: 0.9 % Sodium Chloride Flush 3 ML SYRINGE IVFLUSH (08:03)
--- NOTE | 2024-10-23 11:14 | MHC.CM.PN ---
Patient has been medically cleared for dc to home today, with services. Patient is active with [facility], who has been made aware of today's dc. Last IMM was addressed on 10/21/2024.
--- NOTE | 2024-10-23 11:19 | P.DS_ITS ---
DS: Providers Provider Date of Service: 10/23/24 Date of admission: 10/20/24 15:31 Date of discharge: 10/23/24 Primary care physician: Quinton Callahan MD Consults: 10/20/24 18:28 Consult to Wound Care Routine Reason for consultation: infected surgical incision 10/20/24 18:45 Consult to General Surgery Routine Consulting Provider: [facility] [facility] Reason for consultation: BKA revision 10/10, concern for osteo, wound dehisced 10/20/24 18:48 Consult to Infectious Diseases Routine Consulting Provider: [facility] [place] [facility] Reason for consultation: BKA stump osteo DS: Diagnosis Discharge Diagnosis (1) Infected surgical wound: Status: Inactive DS: Summary Hospital Course Hospital Course: From admission HPI: Date of Service: 10/20/24 Attending physician on admission: Melquiades Poe Chief Complaint: Right stump pain Pt is a 64-year-old male with a PMH significant for?PAD s/p right BKA on 01/2024 with revision on 10/10/2024, paroxysmal AFib not on anticoagulation, COPD not on home O2, GERD, Palmer's esophagus, HLD, and BPH who presents to the ED for evaluation of worsening right stump pain and drainage from stump revision surgical site. Pt reports has had drainage from BKA revision incision since surgery on 10/10. Originally drainage was yellowish/orangish and mostly clear, though lately has had thick pus draining from it. Pain especially became intense about 3 days ago and area turned red. Today visiting nurse advised pt come to the ED as incision site looked worse than before. Pt was prescribed a 10 day course of Keflex post surgery, for which he took his last dose earlier this morning. No fever or chills. Denies any nausea or vomiting. No chest pain/pressure. Denies shortness or breath or difficulty breathing. Of note, pt had prior hospitalization to [facility] [place] in May with cellulitis and osteomyelitis of right stump. Was seen and evaluated by ID who suggested 6 weeks of or dependent, but pt was unable to complete optimal treatment due to costs. In the ED pt was bradycardic in the 40s, vitals otherwise stable and WNL. Labs were significant for mildly elevated CRP of 0.5 gene, otherwise unremarkable and WNL. No leukocytosis. ESR WNL. No significant electrolyte abnormalities. Renal and hepatic function WNL. Right knee x-ray showing possible osteomyelitis at the distal end of remaining right tibia. EKG demon strated AFib with slow ventricular response with chronic LBBB but without evidence of significant ST elevations or depressions. Pt was treated in the ED with morphine, cefepime, and vancomycin. Pt is admitted to the hospital for treatment and further evaluation of right stump cellulitis concerning for osteomyelitis. Hospital Course: The pt was admitted to the hospital for acute cellulitis of right lower extremity stump secondary to infected surgical incision wound. Concern was for osteomyelitis, but pt was seen by both General surgery and Infectious Disease who thought osteomyelitis chronic and not acute. Imaging more suggestive of recent surgical changes. Pt was treated with IV cefepime and vancomycin while in the hospital. Wound culture grew Pseudomonas that was susceptible to levo floxacin. Overall patient's hospital stay was uncomplicated. He will be discharged home on levofloxacin 750 mg daily for the next 11 days, ending on 11/03. Pt should follow up with Dr. Knott in vascular surgery at previously scheduled appointment on 10/28. Of note, pt was found to be in AFib with slow ventricular response. Metoprolol was held. Further details concerning hospital stay indicated in problem list below. Right stump cellulitis concerning for osteomyelitis Recent stump revision on 10/10/2024 Erythema, pain, purulent drainage, x-ray concerning for acute osteomyelitis; ESR and CRP not significantly elevated; no sepsis Empirically treat with vancomycin and cefepime x4 days General surgery consulted, think x-ray findings likely secondary to recent surgical vision, not osteomyelitis Infectious disease consulted, think OM chronic and suggest 14 days of oral antibiotics depending on sensitivities Wound care consult, recommend cleaning with normal saline, apply durafiber ag, cover with ABD pad, secure with stretch netting Wound culture grew Pseudomonas sensitive to levofloxacin Bradycardia EKG showing AFib with slow ventricular response; HR in the 40s and 50s in the ED Pt asymptomatic Metoprolol on hold, continue holding until follow up with primary care or Cardiology to consider resuming were stopping completely Monitor on telemetry COPD Not in acute exacerbation Continue home inhalers PAD Continue aspirin, statin, gabapentin GERD Continue PPI BPH Continue tamsulosin Time Attestation Discharge Coordination Time (in mins): 35 Quality: Safe Use of Opioids Does Pt have an Active Cancer Diagnosis on the Problem List?: No Quality: Stroke Does the patient have a stroke diagnosis?: No Physical Exam Exam: Exam: General: AOx3, no acute distress Resp: CTA bilaterally CVS: S1, S2, RRR GI: +BS, NT, no distention Skin: Warm, dry Neuro: Cranial nerves II-XII grossly intact bilaterally. Motor grossly intact bilaterally Extremities: Right stump with dehisced wound with small amount of purulent drainage. Erythema mostly resolved Psych: Appropriate affect Vital Signs: Vital Signs: Last Vital Signs Temp 97.1 F 10/23/24 07:58 Pulse 59 10/23/24 07:58 Resp 18 10/23/24 07:58 BP 133/72 10/23/24 07:58 Pulse Ox 95 10/23/24 07:58 O2 Del Method Room Air 10/23/24 07:58 BMI result Body Mass Index 26.5 DS: Data Data Completed and Pending Completed studies during hospitalization [Text1]: Procedures Bypass Right Femoral Artery to Popliteal Artery with Autologous Venous Tissue, Open Approach (08/13/23) Detachment at Right Lower Leg, Mid, Open Approach (02/04/24) Excision of Right Saphenous Vein, Open Approach (08/13/23) Insertion of Infusion Device into Superior Vena Cava, Percutaneous Approach (05/26/24) Introduction of Other Thrombolytic into Peripheral Artery, Percutaneous Approach (01/07/24) Introduction of Vasopressor into Peripheral Vein, Percutaneous Approach (01/07/24) Transfusion of Nonautologous Frozen Plasma into Peripheral Vein, Percutaneous Approach (01/07/24) Transfusion of Nonautologous Platelets into Peripheral Vein, Percutaneous Approach (01/07/24) Transfusion of Nonautologous Red Blood Cells into Peripheral Vein, Percutaneous Approach (01/07/24) Ultrasonography of Superior Vena Cava, Guidance (05/26/24) Labs on day of discharge: Laboratory Results - last 24 hr 10/22/24 10/23/24 13:56 07:19 Hold Purple Top SEE NOTE Creatinine 1.14 Estim Creat Clear Calc 69.9 Estimated GFR > 60 Random Vancomycin 12.4 L Preliminary micro results at discharge 10/20/24 14:56 Blood Culture - Preliminary Blood - Venous No growth after 48 hours. 10/20/24 14:56 Blood Culture - Preliminary Blood - Venous No growth after 48 hours. Discharge Plan Discharge Anticipated Discharge Date/Time: 10/23/24 10:55 Patient Disposition: Home Health Service Discharge Diagnosis: Acute right lower extremity cellulitis from surgical incision wound Referrals: [facility] [Other] - 1 Week Quinton Callahan MD [Primary Care Provider, Internal Medicine] - 1 Week Discharge Medications: New levofloxacin 750 mg tablet 750 mg PO DAILY Qty: 11 0RF Rx Instructions: Take 1 tablet daily for the next 11 days, starting 10/24 and ending on 10/03 Continued aspirin [Luis Low Dose Aspirin] 81 mg Tablet,Delayed Release (Dr/Ec) 81 mg PO DAILY tamsulosin 0.4 mg Capsule 0.8 mg PO DAILY pantoprazole 40 mg Tablet,Delayed Release (Dr/Ec) 80 mg PO DAILY@0630 Centrum Silver Men [id number] mcg Tablet 1 tab PO DAILY albuterol sulfate 90 mcg/actuation HFA aerosol inhaler 2 puff inhalation Q4H PRN (Reason: shortness of breath or wheezing) gabapentin 300 mg capsule 600 mg PO BID atorvastatin 10 mg tablet 10 mg PO DAILY acetaminophen [Tylenol Extra Strength] 500 mg tablet 1,000 mg PO Q6H PRN (Reason: Pain) Held metoprolol succinate 25 mg tablet extended release 24 hr 25 mg PO DAILY Hold Instructions: Resume on 11/10/24. Your metoprolol was held because your heart rate was low while in the hospital. Heart rate and blood pressure were well-controlled throughout hospital stay. Continue to hold metoprolol at this time until you follow up with your PCP to consider whether stopping medication or resuming it at a later date. Discharge Orders: Discharge Order (Routine); Ordered 10/23/24 Ordered By: David Berry Activity on Discharge: As tolerated Stand Alone Forms: Patient Portal Discharge page Print Language: Cook Islander Care Plan Goals: See below Health Concerns: Right leg cellulitis Acute on chronic osteomyelitis Plan of Treatment: You were admitted the hospital for acute right stump cellulitis at site of surgical wound with concerns for acute on chronic osteomyelitis. You were seen by both General surgery and Infectious Disease who thought osteomyelitis is chronic and not acute. Wound cultures were positive for Pseudomonas susceptible to levofloxacin. You will be discharged on oral antibiotics and should follow up with vascular surgery next week. -- for acute cellulitis, take levofloxacin 750 mg daily for the next 11 days, starting on 10/24 and ending on 11/03 -- follow up with Dr. Knott in vascular surgery at previously scheduled appointment on 10/28 -- for wound care, clean with normal saline, apply durafiber ag, cover with ABD pad, secure with stretch netting. Dressing change daily for now. Follow up with Dr. Knott for additional wound care instructions -- your metoprolol 25 mg ER daily was held due to low heart rate when you 1st arrived to the ED. Your heart rate and blood pressure will well-controlled throughout hospital stay. Please continue to hold medication until you follow up with your PCP to consider whether to restart medication or stop it completely. -- resume all of your other home meds Assessment: See discharge summary
[2024-10-23 11:26] VITALS: BP 125/64; PULSE 60; RESP 18; TEMP 36.4; O2SAT 93
--- NOTE | 2024-10-23 14:27 | HE.PHANOTE ---
RE: Pedro Renal function has declined. Trough returned at 18.9, pt is therapeutic. Continue current dose of 1250mg q12h with predicted AUC 599, predicted trough 18.7. Next trough 10/23 @ 1400.
== END 2024-10-23 14:57 | disposition home health service (06) | DRG 565 ==
LOC: HO.ED 15:44 → HO.EDOVER 15:53 → HO.IMC 17:17
PROVIDERS: Physician Assistant Medical; Admitting Provider Student in an Organized Health Care Education/Training Program; Emergency Provider Emergency Medicine; PCP Internal Medicine Medical Oncology; Visit Provider Student in an Organized Health Care Education/Training Program
DX: T87.43 Infection of amputation stump, right lower extremity (principal); L03.115 Cellulitis of right lower limb; M86.661 Other chronic osteomyelitis, right tibia and fibula; F17.210 Nicotine dependence, cigarettes, uncomplicated; J44.9 Chronic obstructive pulmonary disease, unspecified; B96.5 Pseudomonas (aeruginosa) (mallei) (pseudomallei) as the cause of diseases classified elsewhere; I70.201 Unspecified atherosclerosis of native arteries of extremities, right leg; K21.9 Gastro-esophageal reflux disease without esophagitis; N40.0 Benign prostatic hyperplasia without lower urinary tract symptoms; Z71.6 Tobacco abuse counseling; Z79.82 Long term (current) use of aspirin; Z79.899 Other long term (current) drug therapy
CPT/HCPCS: 36415; 73564; 80048; 80053; 80202; 82565; 84443; 85025; 85027; 85652; 86140; 87040; 87070; 87077; 87186; 87205; 93005; 99285; J0692; J1171; J1650; J2270; J3373; J3374

== ENCOUNTER → 2024-10-20 12:32 | Outpatient (BNV) | payer MEDICARE, SELFPAY | PROVIDERS: Emergency Provider Emergency Medicine; PCP Internal Medicine Medical Oncology; Visit Provider Radiology Diagnostic Radiology | DX: R22.41 Localized swelling, mass and lump, right lower limb (principal) | CPT/HCPCS: 73564 ==

== ENCOUNTER 2024-10-20 15:31 | Outpatient (BNV) | payer MEDICARE, SELFPAY | END 2024-10-20 16:02 | PROVIDERS: Admitting Provider Student in an Organized Health Care Education/Training Program; Emergency Provider Emergency Medicine; PCP Internal Medicine Medical Oncology; Visit Provider Internal Medicine | DX: I49.1 Atrial premature depolarization (principal); I44.7 Left bundle-branch block, unspecified | CPT/HCPCS: 93010 ==

== ENCOUNTER → 2024-10-20 15:31 | Outpatient (BNV) | payer MEDICARE, SELFPAY | PROVIDERS: Admitting Provider Student in an Organized Health Care Education/Training Program; Emergency Provider Emergency Medicine; PCP Internal Medicine Medical Oncology; Visit Provider Surgery | DX: S88.111D Complete traumatic amputation at level between knee and ankle, right lower leg, subsequent encounter (principal) | CPT/HCPCS: 99232 ==

== ENCOUNTER → 2024-10-20 15:31 | Outpatient (BNV) | payer MEDICARE, SELFPAY | PROVIDERS: Admitting Provider Student in an Organized Health Care Education/Training Program; Emergency Provider Emergency Medicine; PCP Internal Medicine Medical Oncology; Visit Provider Student in an Organized Health Care Education/Training Program | DX: L03.115 Cellulitis of right lower limb (principal) | CPT/HCPCS: 99223; 99233 ==

== ENCOUNTER → 2024-10-20 15:31 | Outpatient (BNV) | payer MEDICARE, SELFPAY | PROVIDERS: Admitting Provider Student in an Organized Health Care Education/Training Program; Emergency Provider Emergency Medicine; PCP Internal Medicine Medical Oncology; Visit Provider Internal Medicine | DX: S88.111D Complete traumatic amputation at level between knee and ankle, right lower leg, subsequent encounter (principal); L03.115 Cellulitis of right lower limb | CPT/HCPCS: 99222 ==

== ENCOUNTER 2024-10-28 13:01 | Outpatient (AMB) | payer MEDICARE, SELFPAY ==
--- NOTE | 2024-10-28 13:12 | MHC.OFFVIS ---
Intake Visit Reasons: 2w follow up R BKA revision 10/10/24 Intake Note: 2 wk follow up Right BKA revision 10/10/24, pt states starting yesterday it is looking much better. Was admitted last week to the hospital for infection. Clinical Assistant Professor Required: No Accompanied by: Self / Same As Patient Allergies No Known Allergies Allergy (Verified 10/28/24 13:15) HPI HPI 2w follow up R BKA revision 10/10/24: Details: Is for follow-up status post BKA revision. He had been doing relatively well and unfortunately in the interim developed questionable infection. He ended up in the emergency room and subsequently admitted for antibiotic therapy. He is currently being maintained on levofloxacin for antibiotic coverage. In general feels pretty well. Did have some pain issues but in general appears to be doing relatively well. [facility] Medical History Osteomyelitis Krish angina Left bundle branch block Bakers cyst Nicotine dependence, cigarettes, uncomplicated Arthritis BPH (benign prostatic hyperplasia) Elevated cholesterol Complex regional pain syndrome i of right lower limb S/P angiogram of extremity (07/18/23) Atrial fibrillation History of Palmer's esophagus Splenic vein thrombosis History of femoral angiogram GERD (gastroesophageal reflux disease) COPD (chronic obstructive pulmonary disease) Peripheral arterial disease Surgical History Hx of BKA History of tonsillectomy Hx of oral surgery Hx of tracheostomy History of esophagogastroduodenoscopy (EGD) H/O colonoscopy Social History Household Members: Family and Children Household Members Other:: Son, son girlfriend, grandbaby Housing: Apartment Housing Other:: 3 stairs to climb Are you a primary primary care nurse to a significant other at home: No Do you presently have visiting nurse or other home services: Yes Comment: Dr Knott made aware of absent pulse and sensation in right foot Patient Tobacco Use Status: Current everyday Tobacco user Tobacco use type: Cigarette Cigarette Packs Per Day: 1 Cigarettes Per Day: 20.0 Years Smoked: 50 e-Cigarette/Vaping Use: Never Used Second Hand Smoke Exposure: No Substance Use Type: Marijuana Advance Directives Date on File: 01/17/24 service: Yes Review of Systems Const All systems reviewed & are unremarkable except as noted in HPI and below Reports no additional complaints ENT Reports Normal hearing present Card Denies chest pain, Denies chest pain at rest, Denies chest pain with activity and Denies pedal edema Resp Denies cough GI Denies abdominal pain Musc Denies abnormal gait, Denies muscle cramps and Denies radiating pain into limb Skin/Breast Denies skin ulcer and Denies wounds Neuro Reports Normal hearing present and Denies abnormal gait Psych Reports no additional complaints Physical Exam Const General: cooperative, healthy appearing and comfortable Orientation/consciousness: oriented to person, oriented to place and oriented to time HEENT Head: Yes normal to inspection Neck Neck: Yes normal visual inspection Carotids: no bruits Chest Chest palpation & inspection: normal inspection of the chest Resp Effort & Inspection: normal respiratory effort and able to speak in complete sentences Auscultation: clear to auscultation bilaterally, no crackles, no rales, no rhonchi and no wheezes Cardio Rate: regular rate Rhythm: regular rhythm Heart sounds: S1 normal heart sound present and S2 normal heart sound present Bruits: no carotid bruits Peripheral pulses: Peripheral pulses 2+ throughout GI Inspection: Yes normal to inspection Skin Other: Right stump incision line healing well central portion opening of 4 x 0.5 x 0.5 cm. Relatively clean minimal erythema. Wounds: no wounds Hair: normal Neuro General: oriented to person, oriented to place and oriented to time Cranial nerves: Yes CN's II-XII intact bilaterally and Yes Normal hearing present Cognition (Neuro): normal cognition Motor exam (neuro): 5/5 motor strength present throughout Extrem Other: venous exam: No significant superficial varicosities or spider telangiectasias, minimal edema General: No clubbing, No cyanosis and No edema Psych Appearance: grossly normal Mental Status: mental status grossly normal Speech and movement: Normal speech and movement present Assessment & Plan Assessment & Plan (1) Below-knee amputation of right lower extremity: Code(s): S88.111A - Complete traumatic amputation at level between knee and ankle, right lower leg, initial encounter Category: Medical Qualifiers: Encounter type: subsequent encounter Qualified Code(s): S88.111D - Complete traumatic amputation at level between knee and ankle, right lower leg, subsequent encounter Plan: In general doing well status post stump revision. Will need local wound care with alginate dressings. He will continue to complete his antibiotic regimen. He is scheduled for 2 week follow-up to ensure that this is progressing in the right direction. Thank you for allowing us to assist in his care. If there are any questions or concerns please do not hesitate to contact us. Coding Level of Care Code Est Pt Level 3 (14386) Diagnoses Below-knee amputation of right lower extremity, subsequent encounter S88.111D Encounter type: subsequent encounter
--- OUTSIDE RECORDS SUMMARY | 2024-10-28 14:22 | XMS_ITS | Clinical Summary ---
Author Organization [facility] Address [address] [place] [address] Phone Care Team Providers Care Auto Tire Recapper Name Role Phone Quinton Callahan MD Primary Care Provider +1- [phone] Allergies No known active allergies Medications oxyCODONE-aceta [...] this topic Medical Devices Implanted Type Area Mis Director Device Identifier Shelf Expiration Date Model / Serial / Lot Graft Vascular 6.0mmx60 70cm Propaten Heparin Carmeda Bioactive Surface Thin Wall Removable Ring Stretch - [id number] Implanted:Qty: 1 on 12/02/2023 by Percy Segundo MD at [facility] STANDARD Right: Vein [employer] [id number] 08/13/2026 [id number] / [id number] / Metal Clip Celd Left Groin 10/2023 Stent Right Femoral Artery Patch Pericardium 2cm 9cm Decellularized Bovine [employer] - [id number] Implanted:Qty: 1 on 12/02/2023 by Percy Segundo MD at [facility] Right: Vein [employer] [id number] 03/24/2025 [id number] / / [id number] Procedures Procedure Name Priority Date/Time Associated Diagnosis Comments BASIC METABOLIC PANEL Routine 02/18/2024 8:01 AM EST Aftercare for amputation stump LIPID PANEL Routine 11/28/2023 1:21 AM EDT from Last 3 Months or Most Recently Relevant to Health Maintenance Results * (ABNORMAL) Basic metabolic panel (02/18/2024 8:01 AM EST) SODIUM 137 133 - 146 mmol/L [facility] CHLORIDE 102 96 - 108 mmol/L [facility] POTASSIUM 4.4 3.3 - 5.1 mmol/L [facility] CO2 25 21 - 35 mmol/L [facility] BUN 13 6 - 19 mg/dL [facility] CREATININE 0.70 0.5 - 1.5 mg/dL [facility] GLUCOSE 101(H) 70 - 99 mg/dL [facility] CALCIUM 9.7 8.4 - 10.3 mg/dL [facility] EGFR 102 >59 mL/min/1.7 3m2 [facility] Comment:Estimated glomerular filtration rate calculated using the CKD-EPI refit equation. ANION GAP 14 10 - 20 mmol/L [facility] Blood 02/18/2024 8:01 AM EST 02/18/2024 10:00 AM EST us Garrett Fletcher MD LAB BLOOD ORDERABLES Final Resul t [facility] [address] [place] [address] * Lipid panel (11/28/2023 1:21 AM EDT) CHOLESTEROL 125 <200 mg/dL [facility] TRIGLYCERIDES 60 35 - 150 mg/dL [facility] HDL 60 40 - 80 mg/dL [facility] CALCULATED LDL 53 50 - 129 mg/dL [facility] VLDL 12 <31 mg/dL [facility] CARDIAC RISK RATIO 2.1 0.0 - 4.0 [facility] Blood 11/28/2023 1:21 AM EDT 11/28/2023 1:35 AM EDT us Ayla Owens PA-C LAB BLOOD ORDERABLES Celmentina l Result [facility] [address] [place] [id number] from Last 3 Months or Most Recently Relevant to Health Maintenance Insurance [employer] PPO MEDICARE REPLACEMENT MEDICARE PART A & B [employer] O MEDICARE REPLACEMENT MEDICARE PART A & B [employer] O MEDICARE REPLACEMENT MEDICARE PART A & B [employer] O MEDICARE REPLACEMENT MEDICARE PART A & B [employer] PPO MEDICARE REPLACEMENT MEDICARE PART A & B [facility] MEDICARE REPLACEMENT MEDICARE PART A & B Advance Directives For more information, please contact: [phone] (9AM - 5PM [facility], Sunday-Sunday) * Full Code (Latest Code Status on File) Date Activated Date Inactivated Comments 11/27/2023 4:16 PM Question Answer Comments Code Status Confirmed With: Patient Care Teams Auto Tire Recapper Relationship Specialty Start Date End Date Quinton Callahan MD [address] [place] [id number] PCP - General Medical Oncology 11/23/23 Additional Source Comments The information contained in this document represents components of the legal health record. It is not the complete legal health record.[facility]
--- OUTSIDE RECORDS SUMMARY | 2024-10-28 14:22 | XMS_ITS | Encounter Summary ---
Author Organization [facility] Address [address] [place] [address] [place] [address] Phone Care Team Providers Care Physical Medicine Teacher Name Role Phone Quinton Callahan MD Primary Care Provider +1- [phone] Encounter Details Date Type Department Care Team (Late st Contact Info) Description 11/28/2023 Procedure Pass [facility] [address] [place] [address] Social History Tobacco Use Types Packs/Day Years [...] on filedocumented in this encounter Care Teams Physical Medicine Teacher Relationship Specialty Start Date End Date Quinton Callahan MD [address] [place] [id number] PCP - General Medical Oncology 11/23/23 documented as of this encounter Additional Source Comments The information contained in this document represents components of the legal health record. It is not the complete legal health record.[facility]
--- OUTSIDE RECORDS SUMMARY | 2024-10-28 14:22 | XMS_ITS | Encounter Summary ---
Author Organization [facility] Address [address] [place] [address] [place] [address] Phone Care Team Providers Care Blanket Winder Operator Name Role Phone Quinton Callahan MD Primary Care Provider +1- [phone] Encounter Details Date Type Department Care Team (Late st Contact Info) Description 11/28/2023 Procedure [facility] [address] [place] [address] Social History Tobacco Use Types Packs/Day Years [...] on filedocumented in this encounter Care Teams Blanket Winder Operator Relationship Specialty Start Date End Date Quinton Callahan MD [address] [place] [phone] PCP - General Medical Oncology 11/23/23 documented as of this encounter Additional Source Comments The information contained in this document represents components of the legal health record. It is not the complete legal health record.[facility]
--- OUTSIDE RECORDS SUMMARY | 2024-10-28 14:22 | XMS_ITS | Encounter Summary ---
Author Organization [facility] Address [address] [place] [address] [place] [address] Phone Care Team Providers Care Ceo Na Name Role Phone Quinton Callahan MD Primary Care Provider +1- [phone] Encounter Details Date Type Department Care Team (Late st Contact Info) Description 12/08/2023 Procedure Pass [facility] E[facility] [address] [place] [address] Social History Tobacco Use Types Packs/Day Years [...] on filedocumented in this encounter Care Teams Ceo Na Relationship Specialty Start Date End Date Quinton Callahan MD [address] [place] [address] PCP - General Medical Oncology 11/23/23 documented as of this encounter Additional Source Comments The information contained in this document represents components of the legal health record. It is not the complete legal health record.[facility]
--- OUTSIDE RECORDS SUMMARY | 2024-10-28 14:22 | XMS_ITS | Encounter Summary ---
Author Organization [facility] Address [address] [place] [address] [place] [address] Phone Care Team Providers Care Aircraft Structural Repairer Name Role Phone Quinton Callahan MD Primary Care Provider +1- [phone] Encounter Details Date Type Department Care Team (Late st Contact Info) Description 12/02/2023 Procedure Pass [facility] Periop [address] [place] [address] Social History Tobacco Use Types Packs/Day Years [...] on filedocumented in this encounter Care Teams Aircraft Structural Repairer Relationship Specialty Start Date End Date Quinton Callahan MD [address] [place] [phone] PCP - General Medical Oncology 11/23/23 documented as of this encounter Additional Source Comments The information contained in this document represents components of the legal health record. It is not the complete legal health record.[facility]
--- OUTSIDE RECORDS SUMMARY | 2024-10-28 14:22 | XMS_ITS | Encounter Summary ---
Author Organization [facility] Address [address] [place] [address] [place] [address] Phone Care Team Providers Care Extrusion Engineer Name Role Phone Quinton Callahan MD Primary Care Provider +1- [phone] Encounter Details Date Type Department Care Team (Late st Contact Info) Description 11/28/2023 Procedure Pass [facility] [address] [place] [address] Social History Tobacco Use Types Packs/Day Years [...] on filedocumented in this encounter Care Teams Extrusion Engineer Relationship Specialty Start Date End Date Quinton Callahan MD [address] [place] [phone] PCP - General Medical Oncology 11/23/23 documented as of this encounter Additional Source Comments The information contained in this document represents components of the legal health record. It is not the complete legal health record.[facility]
--- OUTSIDE RECORDS SUMMARY | 2024-10-28 14:22 | XMS_ITS | Encounter Summary ---
Author Organization [facility] Address [address] [place] [address] [place] [address] Phone Care Team Providers Care Outside Upholsterer Name Role Phone Quinton Callahan MD Primary Care Provider +1- [phone] Encounter Details Date Type Department Care Team (Late st Contact Info) Description 11/28/2023 Procedure Pass [facility] [address] [place] [address] Social History Tobacco Use Types Packs/Day Years [...] on filedocumented in this encounter Care Teams Outside Upholsterer Relationship Specialty Start Date End Date Quinton Callahan MD [address] [place] [phone] PCP - General Medical Oncology 11/23/23 documented as of this encounter Additional Source Comments The information contained in this document represents components of the legal health record. It is not the complete legal health record.[facility]
== END 2024-10-28 13:49 | disposition home or self-care (01) ==
LOC: HO.HVS 13:01
PROVIDERS: PCP Internal Medicine Medical Oncology; Visit Provider Surgery Vascular Surgery
DX: S88.111D Complete traumatic amputation at level between knee and ankle, right lower leg, subsequent encounter (principal)
CPT/HCPCS: 99024

== ENCOUNTER → 2024-10-28 13:01 | Outpatient (BNVA) | payer MEDICARE, SELFPAY | PROVIDERS: PCP Internal Medicine Medical Oncology; Visit Provider Surgery Vascular Surgery | DX: S88.111D Complete traumatic amputation at level between knee and ankle, right lower leg, subsequent encounter (principal); Z98.890 Other specified postprocedural states | CPT/HCPCS: 99212 ==

== ENCOUNTER 2024-11-11 13:17 | Outpatient (AMB) | payer MEDICARE, SELFPAY ==
--- OUTSIDE RECORDS SUMMARY | 2023-08-14 06:30 | XMS_ITS ---
Author Organization [facility] Address [address] [place] [address] Care Team Providers Care Medical Billing Coordinator Name Role Phone Quinton Callahan MD Primary Care Provider Unavailab Quinton Alvarez [phone] REASON FOR VISIT Patient presents today for EGD, NUGENT'S ESOPHAGUS Encounters Encounter Location Date Provider Diagnosis [facility] [address] [facility] [address] [place] [address] 08/14/2023 Quinton Campos Plan Of Treatment Next Appt Details Provider Name:Quinton Campos , 02/04/2025 01:00:00 PM, [address], [address], [place], [address], Progress Notes * ANGELA HERNANDEZOB:1960 (64 yo M)Acc No.[id number]:08/14/2023 Progress Notes Patient: JUAN FRANCISCO TONG Provider: Angeles Capmos MD :1960 A ge:63 Y S ex:Male Date:08/14/2023 Address:[address] [place] [address] [place] Pcp:Quinton Callahan MD Subjective: * Chief Complaints: [...] MD Date: 0 08/14/2023 Generated for Tristen bustamante/Jai/Allysonitting on: 0 11/11/2024 05:10 PM EDT
--- OUTSIDE RECORDS SUMMARY | 2024-09-04 07:30 | XMS_ITS ---
Author Organization Quinton Callahan III, MD Address [address] [place] [address] [place] [address] Care Team Providers Care Cow Rider Name Role Phone Quinton Callahan Primary Care Provider [phone] REASON FOR VISIT update on pt condition Social History Sex Assigned At : Social History Observation Description Sex Assigned At Male Encounters Encounter Location Date Provider Diagnosis Quinton Callahan III, MD [address] [place] [address] [place] [address] 09/04/2024 Quinton Callahan Plan Of Treatment Next Appt Details Provider Name:Quinton Callahan, 12/02/2024 03:00:00 PM, [address] [place] [address] [address], [place], [address], Progress Notes * HUANG JuanrheahDOB:1960 (64 yo M)Acc No.[id number]:09/04/2024 Patient: Chuy FALGUNI Zan :1960 A ge:64 Y S ex:Male Address:[address] [place] [address], [address], [place], [address] * true * Date: Generated for Montanai ng/Fayuryg/eTransmitting on: 0 11/11/2024 05:11 PM EDT
--- OUTSIDE RECORDS SUMMARY | 2024-09-09 07:30 | XMS_ITS ---
Author Organization Quinton Callahan III, MD Address [address] [place] [address] Care Team Providers Care Wire Repairer Name Role Phone Quinton Callahan Primary Care Provider [phone] Allergies Allergen (clinical drug ingredient) Drug/Non Drug [...] Provider Speciality Internal M edicine Referred Provider [facility] er, Cardiology Referred Provider Specialty Cardiology [...] is able to be seen sooner than 01/28/25., Luz Welsh 10/22/2024 02:20:35 PM > Patient is currently Admitted into . Referral Priority Routine REASON FOR VISIT Right [...] Provider Diagnosis Quinton Callahan III, MD [address] [place] [address] [place] [address] 09/09/2024 Quinton Callahan Irregular heart rate I49.9 [...] endoscopy and was referred back to his mechatronics engineer, Dr. Quinton Campos. 09/09/2024 Chronic obstructive pulmonary [...] Irregular Heart Rate History of A-Fib, Cardiology [facility] Next Appt Details Follow Up: 3 Weeks, Reason: OV Provider Name:Quinton Callahan, 12/02/2024 03:00:00 PM, [address] [place] [address] , [place] [address], [place], [address], Progress Notes * Ana ENCINAShDOB:1960 (64 yo M)Acc No.[id number]:09/09/2024 Progress Notes Patient: Zan TONG Provider: Angeles Callahan MD :1960 A ge:64 Y S ex:Male Date:09/09/2024 Address:[address] [place], [place] [id number] Subjective: * Chief Complaints: * R ight [...] after dental work 1986upper endoscopy and colonoscopy, [facility], Dr. Quinton Campos 2009upper endoscopy, [facility], Dr. Quinton Campos, Palmer's esophagus 2014arteriogram right lower extremity 05/2019Right uztso-wby-mqsf amputation 02-04-2024 * Hospitalization/Major Diagno stic Procedure: [...] healthy grandchildren. One of his siblings has Ivtplrw-Cqttf-Vwgdo disease. 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 He was born in [place], [place]. He came to [place] in 1984. He is with 6 children. He has 11 grandchildren. He is a of [employer]. He trained at [employer] and served in [employer]. * Medications: T akingMetoprolol Succinate ER 25 [...] 2 tablets by mouth once daily DiscontinuedNystatin 705965 UNIT/GM Powder 1 application Externally Twice a [...] reviewed and reconciled with the patientDiscontinued Nystatin 533084 UNIT/GM Powder 1 application Externally Twice a [...] endoscopy and was referred back to his mechatronics engineer, Dr. Quinton Campos. 5 . C hronic [...] * Treatment: 2. O thers Referral To:Cardiology [facility] Cardiology Reason:Evaluate and Treat Irregular Heart [...] 09/09/2024 Generated for Tristen bustamante/Jai/eTransmitting on: 0 11/11/2024 05:10 PM EDT History and Physical Notes * [...] Referred Provider Not nicholas 09/09/2024 Quinton Callahan [facility], Cardiology Evaluate and Treat Irregular Heart Rate History of A-Fib
--- OUTSIDE RECORDS SUMMARY | 2024-09-30 10:00 | XMS_ITS ---
Author Organization Quinton Callahan III, MD Address [address] [place] [address] [place] [address] Care Team Providers Care Window And Door Installer Name Role Phone Quinton Callahan Primary Care Provider [phone] Allergies Allergen (clinical drug ingredient) Drug/Non Drug [...] Provider Specialty Urology General Notes Jolie Gonzalez [facility] 09/30 03:24:56 PM >I called Dr Flores office made patient an appt for 12/03/2024 at 2:45pm pt is established with Dr Flores so no records were sent . [facility] appt information was [...] Specialty Gastroentero logy General Notes Jolie Gonzalez [facility] 09/30 03:23:14 PM >Called Dr Campos [...] Date Provider Diagnosis Quinton Callahan III, MD [address] [place] [address] [address] [place], [place] [phone] 09/30/2024 Quinton Callahan Chronic osteomyeliti s of [...] endoscopy and was referred back to his customer advisor specialist, Dr. Quinton Campos. 09/30/2024 Tobacco dependence (ICD-10 [...] 500 MG TAKE 1 CAPSULE BY MO [facility] TWICE DAILY Oral Albuterol Sulfate HFA 108 [...] october, Reason: OV no tests Provider Name:Quinton Callahan, 12/02/2024 03:00:00 PM, [address] [place] [address], [id number], Progress Notes * Ana ENCINAShDOB:1960 (64 yo M)Acc No.[id number]:09/30/2024 Progress Notes Patient: Zan TONG Provider: Angeles Callahan MD :1960 A ge:64 Y S ex:Male Date:09/30/2024 Address:[address] [place], [place] [id number] Subjective: * Chief Complaints: * R ecurrent [...] esophagus and was referred back to his customer advisor specialist today. He umbilical hernia is not symptomatic.? He continues to smoke 17 cigarettes a day and is reducing this number. He had a cyst removed from his back by the vba programmer. Questions H ave you had any new [...] after dental work 1985upper endoscopy and colonoscopy, [facility], Dr. Quinton Campos 2009upper endoscopy, [facility], Dr. Quinton Campos, Palmer's esophagus 2014arteriogram right lower extremity 05/2019Right ubzqs-tca-vjbb amputation 02-04-2024 * Hospitalization/Major Diagno stic Procedure: [...] healthy grandchildren. One of his siblings has Mzfiwtq-Tueqb-Gbchq disease. 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 He was born in [place], [place]. He came to [place] in 1984. He is with 6 children. He has 11 grandchildren. He is a of [employer]. He trained at [employer] and served in [employer]. * Medications: T akingMetoprolol Succinate ER 25 [...] endoscopy and was referred back to his customer advisor specialist, Dr. Quinton Campos. 8 . T obacco [...] 09/30/2024 Generated for Tristen bustamante/Jai/Allysonitting on: 0 11/11/2024 05:11 PM EDT History and Physical Notes * [...] Referring Provider Referred Provider Not es 09/30/2024 Quniton Callahan Amie left renal hem atoma evaluate and treatment 09/30/2024 Quinton Callahan Robert evaluate and treatment Barretts esophagus barretts Esophagus Due for EGD
--- OUTSIDE RECORDS SUMMARY | 2024-10-15 13:00 | XMS_ITS ---
Author Organization Quinton Callahan III, MD Address [address] [place] [address] Care Team Providers Care Plodder Operator Name Role Phone Quinton Callahan Primary Care Provider [phone] REASON FOR VISIT Annual Exam Social History Sex Assigned At : Social History Observation Description Sex Assigned At Male Encounters Encounter Location Date Provider Diagnosis Quinton Callahan III, MD [address] [place] [address] [place] [address] 10/15/2024 Quinton Callahan Plan Of Treatment Next Appt Details Provider Name:Quinton Callahan, 12/02/2024 03:00:00 PM, [address] [place] [address] [place], [address], Progress Notes * Ana ENCINAShDOB:1960 (64 yo M)Acc No.[id number]:10/15/2024 Progress Notes Patient: Zan TONG Provider: Angeles Callahan MD :1960 A ge:64 Y S ex:Male Date:10/15/2024 Address:[address] [place] [address], [address] [place] [id number] Subjective: * Chief Complaints: * 1 . [...] 0 10/15/2024 Generated for Tristen bustamante/Jai/Henrry on: 0 11/11/2024 05:11 PM EDT
--- OUTSIDE RECORDS SUMMARY | 2024-10-29 10:30 | XMS_ITS ---
Author Organization Quinton Callahan III, MD Address [address] [place] [address] [place] [address] Care Team Providers Care Traffic Analysis Technician Name Role Phone Quinton Callahan Primary [...] Provider Diagnosis Quinton Callahan III, MD [address] [place] [address] DR [place], [place] [address] 10/29/2024 Quinton Callahan Chronic osteomyeliti s of [...] endoscopy and was referred back to his missile inspector, Dr. Quinton Campos. 10/29/2024 Chronic obstructive pulmonary [...] Weeks, Reason: Annual Exam, OV Provider Name:Quinton Callahan, 12/02/2024 03:00:00 PM, [address] [place] [address], [address], Progress Notes * Ana ENCINAShDOB:1960 (64 yo M)Acc No.[id number]:10/29/2024 Patient: Zan TONG Provider: Angeles Callahan MD :1960 A ge:64 Y S ex:Male Date:10/29/2024 Address:[address] [place] [address], [phone] Subjective: * Chief Complaints: * R ight [...] after dental work 1985upper endoscopy and colonoscopy, [facility], Dr. Quinton Campos 2009upper endoscopy, [facility], Dr. Quinton Campos, [place]'s esophagus 2014arteriogram right lower extremity 05/2019Right ohjeo-igc-nbiu amputation 02-04-2024 * Hospitalization/Major Diagno stic Procedure: D enies Past Hospitalization * Family History: F ather: 73 yrs, Diabetes mellitus, coronary artery disease, myocardial infarction, coma with rhabdomyolysis, diagnosed with DM, CVD. M other: alive 80 yrs, Several skin cancers, healthy and well, adult-onset diabetes, hypertension, diagnosed with DM, HTN, Cancer. S iblings: . P aternaflo Grand Father: , diagnosed with Cancer. P ategermanl Grand Mother: , diagnosed with Cancer. paternal Grandfather disease Dx with Lung CA. Paternal grandmother disease Dx with pancreatic CA. He has 6 healthy children and 11 healthy grandchildren. One of his siblings has Biortfu-Evsmp-Wxxqy disease. 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 He was born in [place], [place]. He came to [place] in 1984. He is with 6 children. He has 11 grandchildren. He is a of [employer]. He trained at [employer] and served in [employer]. * Medications: T akingAtorvastatin Calcium 10 MG [...] endoscopy and was referred back to his missile inspector, Dr. Quinton Campos. 5 . C hronic [...] Angeles Callahan MD Date: 10/29/2024 Generated for Tristen bustamante/Jai/eTransmitting on: 11/11/2024 05:11 PM EDT History and Physical [...]
--- NOTE | 2024-11-11 13:28 | A.OFFVIS_ITS ---
Intake Visit Reasons: 2 week follow up wound check Intake Note: 2 week follow up Right BKA revision 10/10/24 Superintendent Drilling And Production Required: No Accompanied by: Self / Same As Patient Allergies No Known Allergies Allergy (Verified 11/11/24 13:30) HPI HPI 2 week follow up wound check: Details: Patient seen and examined. No significant events. Overall he is doing well after his right BKA revision. No fever chills. He has finished his levofloxacin. In general appears to be doing fairly well. No significant pain control issues. [facility] Medical History (Updated 11/12/24 @ 08:52 by Bimal Knott MD) Peripheral arterial disease Below-knee amputation of right lower extremity Osteomyelitis Krish angina Left bundle branch block Bakers cyst Nicotine dependence, cigarettes, uncomplicated Arthritis BPH (benign prostatic hyperplasia) Elevated cholesterol Complex regional pain syndrome i of right lower limb S/P angiogram of extremity (07/18/23) Atrial fibrillation History of Palmer's esophagus Splenic vein thrombosis History of femoral angiogram GERD (gastroesophageal reflux disease) COPD (chronic obstructive pulmonary disease) Surgical History Hx of BKA History of tonsillectomy Hx of oral surgery Hx of tracheostomy History of esophagogastroduodenoscopy (EGD) H/O colonoscopy Social History Household Members: Family and Children Household Members Other:: Son, son girlfriend, grandbaby Housing: Apartment Housing Other:: 3 stairs to climb Are you a primary hospice spiritual care coordinator to a significant other at home: No Do you presently have visiting nurse or other home services: Yes Comment: Dr Knott made aware of absent pulse and sensation in right foot Patient Tobacco Use Status: Current everyday Tobacco user Tobacco use type: Cigarette Cigarette Packs Per Day: 1 Cigarettes Per Day: 20.0 Years Smoked: 50 e-Cigarette/Vaping Use: Never Used Second Hand Smoke Exposure: No Substance Use Type: Marijuana Advance Directives Date on File: 01/17/24 service: Yes Review of Systems Const All systems reviewed & are unremarkable except as noted in HPI and below Reports no additional complaints ENT Reports Normal hearing present Card Denies chest pain, Denies chest pain at rest, Denies chest pain with activity and Denies pedal edema Resp Denies cough GI Denies abdominal pain Musc Denies abnormal gait, Denies muscle cramps and Denies radiating pain into limb Skin/Breast Denies skin ulcer and Denies wounds Neuro Reports Normal hearing present and Denies abnormal gait Psych Reports no additional complaints Physical Exam Const General: cooperative, healthy appearing and comfortable Orientation/consciousness: oriented to person, oriented to place and oriented to time HEENT Head: Yes normal to inspection Neck Neck: Yes normal visual inspection Carotids: no bruits Chest Chest palpation & inspection: normal inspection of the chest Resp Effort & Inspection: normal respiratory effort and able to speak in complete sentences Auscultation: clear to auscultation bilaterally, no crackles, no rales, no rhonchi and no wheezes Cardio Rate: regular rate Rhythm: regular rhythm Heart sounds: S1 normal heart sound present and S2 normal heart sound present Bruits: no carotid bruits Peripheral pulses: Peripheral pulses 2+ throughout GI Inspection: Yes normal to inspection Skin Other: Stump right stump central opening measures 3.2 x 1 x 0.4 cm. Clean granulation base. No bony exposure. Wounds: no wounds Hair: normal Neuro General: oriented to person, oriented to place and oriented to time Cranial nerves: Yes CN's II-XII intact bilaterally and Yes Normal hearing present Cognition (Neuro): normal cognition Motor exam (neuro): 5/5 motor strength present throughout Extrem Other: venous exam: No significant superficial varicosities or spider telangiectasias, minimal edema General: No clubbing, No cyanosis and No edema Psych Appearance: grossly normal Mental Status: mental status grossly normal Speech and movement: Normal speech and movement present Assessment & Plan Assessment & Plan (1) Peripheral arterial disease: Code(s): I73.9 - Peripheral vascular disease, unspecified Category: Medical Plan: In short right BKA stump seems to be doing well. Would continue with local wound care. Plan for three-week surveillance follow-up. We did discuss risk factor modification and the importance of good nutrition. Once again he will follow up with us in 3 weeks' time. Coding Level of Care Code Est Pt Level 4 (83984) Diagnoses Peripheral arterial disease I73.9
--- OUTSIDE RECORDS SUMMARY | 2024-11-11 17:10 | XMS_ITS | Encounter Summary ---
Author Organization [facility] Address [address] [place] [address] [place] [address] Phone Care Team Providers Care Registry Rn Name Role Phone Quinton Callahan MD Primary Care Provider +1- [phone] Encounter Details Date Type Department Care Team (Late st Contact Info) Description 12/08/2023 Procedure Pass [facility] EKG [address] [place] [address] Social History Tobacco Use Types Packs/Day Years [...] on filedocumented in this encounter Care Teams Registry Rn Relationship Specialty Start Date End Date Quinton Callahan MD [address] [place] [address] PCP - General Medical Oncology 11/23/23 documented as of this encounter Additional Source Comments The information contained in this document represents components of the legal health record. It is not the complete legal health record.[facility]
--- OUTSIDE RECORDS SUMMARY | 2024-11-11 17:10 | XMS_ITS | Encounter Summary ---
Author Organization [facility] Address [address] [place] [address] [place] [address] Phone Care Team Providers Care Barber Stylist Name Role Phone Quinton Callahan MD Primary Care Provider +1- [phone] Encounter Details Date Type Department Care Team (Late st Contact Info) Description 12/02/2023 Procedure Pass [facility] Periop [address] [place] [address] Social History Tobacco Use Types Packs/Day Years [...] on filedocumented in this encounter Care Teams Barber Stylist Relationship Specialty Start Date End Date Quinton Callahan MD [address] [place] [address] PCP - General Medical Oncology 11/23/23 documented as of this encounter Additional Source Comments The information contained in this document represents components of the legal health record. It is not the complete legal health record.[facility]
--- OUTSIDE RECORDS SUMMARY | 2024-11-11 17:10 | XMS_ITS | Clinical Summary ---
Author Organization [facility] Address [address] [place] [address] Phone Care Team Providers Care Disposal Plant Operator Name Role Phone Quinton Callahan MD Primary Care Provider +1- [phone] Allergies No known active allergies Medications oxyCODONE-aceta [...] - Risk 60-74 years 1-dose series) 2018 INFLUENZA VACCINE (#1) 2024 12/08/2023, 2015 COVID-19 VACCINE (3 - season) 2024 07/27/2020, 06/25/2020 LIPID PANEL 11/27/2024 11/28/2023 CREATININE [...] this topic Medical Devices Implanted Type Area Agency Owner Device Identifier Shelf Expiration Date Model / Serial / Lot Graft Vascular 6.0mmx60 70cm Propaten Heparin [employer] Bioactive Surface Thin Wall Removable Ring Stretch - [id number] Implanted:Qty: 1 on 12/02/2023 by Percy Segundo MD at [facility] STANDARD Right: Vein [employer] [id number] 08/13/2026 [id number] / [id number] / Metal Clip Celd Left Groin 10/2023 Stent Right Femoral Artery Patch Pericardium 2cm 9cm Decellularized Bovine [employer] - [id number] Implanted:Qty: 1 on 12/02/2023 by Percy Segundo MD at [facility] Right: Vein [employer] [id number] 03/24/2025 [id number] / / [id number] Procedures Procedure Name Priority Date/Time Associated Diagnosis Comments BASIC METABOLIC PANEL Routine 02/18/2024 8:01 AM EST Aftercare for amputation stump LIPID PANEL Routine 11/28/2023 1:21 AM EDT from Last 3 Months or Most Recently Relevant to Health Maintenance Results * (ABNORMAL) Basic metabolic panel (02/18/2024 8:01 AM EST) SODIUM 137 133 - 146 mmol/L [facility] CHLORIDE 102 96 - 108 mmol/L [facility] POTASSIUM 4.4 3.3 - 5.1 mmol/L [facility] CO2 25 21 - 35 mmol/L [facility] BUN 13 6 - 19 mg/dL [facility] CREATININE 0.70 0.5 - 1.5 mg/dL [facility] GLUCOSE 101(H) 70 - 99 mg/dL [facility] CALCIUM 9.7 8.4 - 10.3 mg/dL [facility] EGFR 102 >59 mL/min/1.7 3m2 [facility] Comment:Estimated glomerular filtration rate calculated using the CKD-EPI refit equation. ANION GAP 14 10 - 20 mmol/L [facility] Blood 02/18/2024 8:01 AM EST 02/18/2024 10:00 AM EST us Garrett Fletcher MD LAB BLOOD ORDERABLES Final Resul t [facility] [address] [place] [address] * Lipid panel (11/28/2023 1:21 AM EDT) CHOLESTEROL 125 <200 mg/dL [facility] TRIGLYCERIDES 60 35 - 150 mg/dL [facility] HDL 60 40 - 80 mg/dL [facility] CALCULATED LDL 53 50 - 129 mg/dL [facility] VLDL 12 <31 mg/dL [facility] CARDIAC RISK RATIO 2.1 0.0 - 4.0 [facility] Blood 11/28/2023 1:21 AM EDT 11/28/2023 1:35 AM EDT us Ayla Owens PA-C LAB BLOOD ORDERABLES Clementina flo Result [facility] [address] [place] [address] from Last 3 Months or Most Recently Relevant to Health Maintenance Insurance [employer] PPO MEDICARE REPLACEMENT MEDICARE PART A & B [employer] O MEDICARE REPLACEMENT MEDICARE PART A & B [employer] O MEDICARE REPLACEMENT MEDICARE PART A & B AETNA [facility] MEDICARE REPLACEMENT MEDICARE PART A & B [facility] MEDICARE REPLACEMENT MEDICARE PART A & B [facility] MEDICARE REPLACEMENT MEDICARE PART A & B Advance Directives For more information, please contact: [phone] (9AM - 5PM Swati/[facility], Sunday-Sunday) * Full Code (Latest Code Status on File) Date Activated Date Inactivated Comments 11/27/2023 4:16 PM Question Answer Comments Code Status Confirmed With: Patient Care Teams Disposal Plant Operator Relationship Specialty Start Date End Date Quinton Callahan MD [address] [place] [address] PCP - General Medical Oncology 11/23/23 Additional Source Comments The information contained in this document represents components of the legal health record. It is not the complete legal health record.[facility]
--- OUTSIDE RECORDS SUMMARY | 2024-11-11 17:11 | XMS_ITS | Encounter Summary ---
Author Organization [facility] Address [address] [place] [address] [place] [id number] Phone Care Team Providers Care Physical Therapy Asst Name Role Phone Quinton Callahan MD Primary Care Provider +1- [phone] Encounter Details Date Type Department Care Team (Late st Contact Info) Description 11/28/2023 Procedure Pass [facility] [address] [place] [address] Social History Tobacco Use Types Packs/Day Years [...] filedocumented in this encounter Care Teams Physical Therapy Asst Relationship Specialty Start Date End Date Quinton Callahan MD [address] [place] [id number] PCP - General Medical Oncology 11/23/23 documented as of this encounter Additional Source Comments The information contained in this document represents components of the legal health record. It is not the complete legal health record.[facility]
--- OUTSIDE RECORDS SUMMARY | 2024-11-11 17:11 | XMS_ITS | Encounter Summary ---
Author Organization [facility] Address [address] [place] [address] [place] [id number] Phone Care Team Providers Care Thiokol Operator Name Role Phone Quinton Callahan MD Primary Care Provider [phone]- [phone] Encounter Details Date Type Department Care Team (Late st Contact Info) Description 11/28/2023 Procedure Pass [facility] [address] [place] [address] Social History Tobacco Use Types Packs/Day Years [...] on filedocumented in this encounter Care Teams Thiokol Operator Relationship Specialty Start Date End Date Quinton Callahan MD [address] [place] [id number] PCP - General Medical Oncology 11/23/23 documented as of this encounter Additional Source Comments The information contained in this document represents components of the legal health record. It is not the complete legal health record.[facility]
--- OUTSIDE RECORDS SUMMARY | 2024-11-11 17:11 | XMS_ITS | Patient Health Record ---
Author Organization Quinton Callahan III, MD Address [address] [place] [address] Care Team Providers Care Hand Fur Cleaner Name Role Phone Quinton Callahan Primary Care Provider Allergies Allergen (clinical drug ingredient) Drug/Non Drug Allergy documented on EMR Reaction Allergy Type Onset Date Status No Known Drug Allergy Unknown Drug Allergy Active Results Component Value Reference Range Notes Complete Blood Count Auto Di ff Reviewed date:11/21/2023 06:36:35 AM Interpretation: Performing Lab:[facility], [address] [place] [phone] Notes/Report: White Blood Count 8.4 4.8-10.8 X10*3/uL [...] INR Reviewed date:11/21/2023 06:36:35 AM Interpretation: Performing Lab:[address] [address] Notes/Report: Prothrombin Time 10.3 10.9-12.4 SEC INTERNATIONAL [...] Time Reviewed date:11/21/2023 06:36:35 AM Interpretation: Performing Lab:[address] [address] Notes/Report: Partial Thromboplastin Time 31.9 26.0-36.8 SEC For information regarding the monitoring of direct thrombin inhibitors, please refer to Pharmacy. Basic Metabolic Panel Reviewed date:11/21/2023 06:36:35 AM Interpretation: Performing Lab:[address] [address] Notes/Report: Sodium 143 135-145 mmol/L Potassium 4.5 [...] Glomerular Filt Rate > 60 NOTE: For -[place]anaian individuals, multiply the result by 1.210. Chronic Kidney Disease: Estimated GFR < 60 mL/min/1.73m2 Severe Kidney Disease: Estimated GFR < 15 mL/min/1.73m2 Glucose Random 99 60-115 mg/dL Calcium 9.6 8.4-10.2 mg/dL Cancelled Chem Reviewed date:01/07/2024 01:28:15 PM Interpretation: Performing Lab:[facility], [address] [place] [phone] Notes/Report: Cancelled Chem SEE NOTE NO SPECIMEN R ECEIVED FOR BUN AND CREAT US arterial duplex LE RT Reviewed date:01/24/2024 07:41:27 AM Interpretation: Performing Lab: Notes/Report: [address] [place] [address] Ultrasound Report Signed Patient: Zan Encinas MR#: [id number] : 1960 Acct:[id number] Age/Sex: 63 / M ADM Date: 01/01/24 Loc: .US Attending Dr: Bimal Knott MD Ordering Physician: Sera Saxena PA-C Date of Service: 01/01/24 Procedure(s): US arterial duplex LE RT Accession Number(s): [id number] cc: Quinton Callahan MD; Sera Saxena PA-C [...] 01/23/2024 01:03 PM [facility] Dictated By: Coleman Chaidez MD Signed By: <Electronically signed by Coleman Chaidze MD in OV> 01/23/24 1303 DD/ 1430 TD/TT: 01/01/24 1517 Net Repairer: [place] [address] Ultrasound Report Signed Patient: Zan Encinas MR#: [id number] : 1960 Acct:[id number] Age/Sex: 63 / M ADM Date: 01/01/24 Loc: . Attending Dr: Bimal Knott MD Ordering Physician: Sera Saxena PA-C Date of Service: 01/01/24 Procedure(s): US arterial duplex LE RT Accession Number(s): [id number] cc: Quinton Callahan MD; Sera Saxena PA-C [...] Posterior tibial art noemi: [place] Anterior tibial rony ry: 21.1 cm/s Diastolic flow rever ben: [...] 01/23/2024 01:03 PM [facility] Dictated By: Coleman Chaidez MD Signed By: <Electronically signed by Coleman Chaidez MD in OV> 01/23/24 1303 DD/ 1430 TD/TT: 01/01/24 1517 Net Repairer: Complete Blood Count Auto Di ff Reviewed date:01/07/2024 01:28:15 PM Interpretation: Performing Lab:[facility], [address] [place] [phone] Notes/Report: White Blood Count 8.2 4.8-10.8 X10*3/uL [...] Drip Reviewed date:01/08/2024 08:33:39 AM Interpretation: Performing Lab:[address] [address] Notes/Report: PTT Heparin Drip 33.9 53-77.9 SEC For information regarding the monitoring of heparin therapy, please refer to Pharmacy. Fibrinogen Reviewed date:01/08/2024 08:33:39 AM Interpretation: Performing Lab:[address] [address] Notes/Report: Fibrinogen 465 259-690 MG/DL Blood Urea Nitrogen Reviewed date:01/07/2024 01:28:15 PM Interpretation: Performing Lab:[address] [address] Notes/Report: Blood Urea Nitrogen 16 9-16 mg/dL Creatinine Reviewed date:01/07/2024 01:28:15 PM Interpretation: Performing Lab:[address] [address] Notes/Report: Creatinine 0.81 0.5-1.4 mg/dL Creatinine Clr Calc Pharmacy 99.7 eGFR (calculated from the MDRD study equation) and eCrCl (calculated from the Cockcroft-Gault equation) are based on different parameters and may not yield comparable results. If eCrCl result is absurd, please check patient's height/weight. Estimated Glomerular Filt Rate > 60 NOTE: For -[place]anaian individuals, multiply the result by 1.210. Chronic Kidney Disease: Estimated GFR < 60 mL/min/1.73m2 Severe Kidney Disease: Estimated GFR < 15 mL/min/1.73m2 ACT LR Reviewed date:01/16/2024 08:51:12 AM Interpretation: Performing Lab:[address] [address] Notes/Report: out of range low [id number] HO.MARUSA 0906 HO.MULVEC Fibrinogen Reviewed date:01/08/2024 08:33:39 AM Interpretation: Performing Lab:[address] [address] Notes/Report: Fibrinogen 445 259-690 MG/DL Complete Blood Count no Diff Reviewed date:01/10/2024 09:47:57 AM Interpretation: Performing Lab:[address] [address] Notes/Report: White Blood Count 28.7 4.8-10.8 X10*3/uL [...] ff Reviewed date:01/08/2024 08:33:39 AM Interpretation: Performing Lab:[facility], [address] [place] [phone] Notes/Report: White Blood Count 10.1 4.8-10.8 X10*3/uL [...] gy Reviewed date:01/08/2024 02:05:08 PM Interpretation: Performing Lab:[facility], [address] [place] [phone] Notes/Report: Hold Lav - Possible Hematology SEE NOTE Specimen will be held untested for 8 hours. Call Hematology if testing is desired. PTT Heparin Drip Reviewed date:01/08/2024 08:33:39 AM Interpretation: Performing Lab:[facility], [address] [place] [phone] Notes/Report: PTT Heparin Drip 40.9 53-77.9 SEC For information regarding the monitoring of heparin therapy, please refer to Pharmacy. Fibrinogen Reviewed date:01/08/2024 08:33:39 AM Interpretation: Performing Lab:[facility], [address] [place] [phone] Notes/Report: Fibrinogen 432 259-690 MG/DL Basic Metabolic Panel Reviewed date:01/08/2024 08:33:39 AM Interpretation: Performing Lab:[address] [address] Notes/Report: Sodium 138 135-145 mmol/L Potassium 3.8 [...] Phosphorus Reviewed date:01/08/2024 08:33:39 AM Interpretation: Performing Lab:[facility], [address] [place] [phone] Notes/Report: Phosphorus 2.9 2.7-4.5 mg/dL Magnesium Reviewed date:01/08/2024 08:33:39 AM Interpretation: Performing Lab:[facility], [address] [place] [phone] Notes/Report: Magnesium 1.8 1.6-2.6 mg/dL Albumin Level Reviewed date:01/08/2024 08:33:39 AM Interpretation: Performing Lab:[facility], [address] [place] [phone] Notes/Report: Albumin Level 3.2 3.5-5.0 g/dL ACT LR Reviewed date:01/11/2024 01:49:27 PM Interpretation: Performing Lab:[facility], [address] [place] [phone] Notes/Report: 109 [id number] HO.MARUSA 0846 HO.MULVEC ACT 109 79-173 Celite s Results are converted to a reference Celite ACT value in seconds. A reference interval is unavailable for ACT. Kathy Flores Reviewed date:01/08/2024 02:05:08 PM Interpretation: Performing Lab:[facility], [address] [place] [phone] Notes/Report: Kathy Flores See Note Specimen held untested for 24 hours; Call to request Chemistry testing. SLIDE REVIEW Reviewed date:01/08/2024 02:05:08 PM Interpretation: Performing Lab:[facility], [address] [place] [phone] Notes/Report: SLIDE REVIEW VERIFIED Type and Screen Reviewed date:01/11/2024 01:49:26 PM Interpretation: Performing Lab:[facility], [address] [place] [phone] Notes/Report: Results at Issue Units as of [...] 01/10/24 0500 HCT PENDING RECEIPT 42.0-52.0 % 01/09/24 1948 HCT 23.3 L 42.0-52.0 % Results at Issue Units as of 01/10/241939 ... Test View Group: Most Recent HGB HCT Results LABORATORY Date Time Test Result Flag Normal Range 01/10/241934 HGB PENDING RECEIPT 14.0-18.0 g/dl 01/10/241748 HGB 3.7 #*L 14.0-18.0 g/dl Results of HGB called to and read back by CARMENWerkadooLisa on 01/10/24 at 1916 by BORIS. 01/10/241934 HCT PENDING RECEIPT 42.0-52.0 % 01/10/241748 HCT 10.5 #*L 42.0-52.0 % Results of HCT called to and read back by PERFECTOBCR EnvironmentalLisa on 01/10/24 at 1918 by BORIS. mL/HR Rate to transfuse BBK Product 100 mL/HR Rate to transfuse BBK Product 100 Results at Issue Units as of 01/10/242027 ... Test View Group: Most Recent HGB HCT Results LABORATORY Date Time Test Result Flag Normal Range 01/10/241943 HGB 3.3 *L 14.0-18.0 g/dl Results of HGB called to and read back by DeerTechLisa on 01/10/24 at 1959 by BORIS. 01/10/241943 HCT 9.9 *L 42.0-52.0 % Results of HCT called to and read back by DeerTechLisa on 01/10/24 at 2000 by BORIS. Results at Issue Units as of 01/10/242027 ... Test View Group: Most Recent HGB HCT Results LABORATORY Date Time Test Result Flag Normal Range 01/10/241943 HGB 3.3 *L 14.0-18.0 g/dl Results of HGB called to and read back by PERFECTOBCR EnvironmentalLisa on 01/10/24 at 9 by BORIS. 01/10/241943 HCT 9.9 *L 42.0-52.0 % Results of HCT called to and read back by PERFECTOBCR EnvironmentalLisa on 01/10/24 at 2000 by BORIS. Results [...] HGB called to and read back by CARMENWerkadooLisa on 01/10/24 at 1959 by BORIS. 01/10/241943 [...] Cells Reviewed date:01/11/2024 01:49:26 PM Interpretation: Performing Lab:[facility], [address] [place] [phone] Notes/Report: Red Blood Cells [id number] ON RC Red Blood Cells TRANSFUSED 01/09/24 0929 Red Blood Cells [id number] OP RC Red Blood Cells TRANSFUSED 01/09/24 1520 Red Blood Cells [id number] OP RC Red Blood Cells TRANSFUSED 01/10/24 0154 Red Blood Cells [id number] OP RC Red Blood Cells TRANSFUSED 01/10/24 1938 Red Blood Cells [id number] OP RC Red Blood Cells TRANSFUSED 01/10/242025 Red Blood Cells [id number] OP RC Red Blood Cells TRANSFUSED 01/10/24 2156 Red Blood Cells [id number] OP RC Red Blood Cells TRANSFUSED 01/10/242025 Red Blood Cells [id number] OP RC Red Blood Cells TRANSFUSED 01/11/24 0159 Red Blood Cells [id number] OP RC Red Blood Cells TRANSFUSED 01/11/24 0159 Arterial Blood Gases - POC Reviewed date:01/08/2024 02:05:08 PM Interpretation: Performing Lab:[facility], [address] [place] [phone] Notes/Report: ABG pH 7.42 7.35-7.45 METER #: [id number] additional_comment: Cbgreavet ctrbpavlova ABG pCO2 34 32-45 mmHg METER #: [id number] additional_comment: Cbgreavet ctrbpavlova ABG pO2 95 83-108 mmHg METER #: [id number] additional_comment: Cbgreavet ctrbpavlova ABG Base Excess -1.2 METER #: [id number] additional_comment: Cbgreavet ctrbpavlova ABG HCO3 22 22-26 mmol/L METER #: [id number] additional_comment: Cbgreavet ctrbpavlova ABG O2 % Saturation 99.0 METER #: [id number] additional_comment: Cbgreavet ctrbpavlova Pheresis Platelets Reviewed date:01/11/2024 01:49:27 PM Interpretation: Performing Lab:[facility], [address] [place] [phone] Notes/Report: Pheresis Platelets [id number] OP PHPLT Pheresis Platelets TRANSFUSED 01/11/24 0133 Hold Green Gel Reviewed date:01/08/2024 02:05:08 PM Interpretation: Performing Lab:[facility], [address] [place] [phone] Notes/Report: Hold Green Gel See Note Specimen held untested for 24 hours; Call to request Chemistry testing. Fresh Frozen Plasma Reviewed date:01/11/2024 01:49:27 PM Interpretation: Performing Lab:[facility], [address] [place] [phone] Notes/Report: Fresh Frozen Plasma [id number] AP FFP Fresh Frozen Plasma TRANSFUSED 01/11/24 0159 Fresh Frozen Plasma [id number] OP FFP Fresh Frozen Plasma TRANSFUSED 01/10/242155 CT abdomen pelvis w con Reviewed date:01/08/2024 02:05:08 PM Interpretation: Performing Lab: Notes/Report: [address] [place] [address] CT Scan Report Signed Patient: Zan Encinas MR#: [id number] : 1960 Acct:[id number] Age/Sex: 63 / M ADM Date: 01/07/24 Loc: [facility] 255-[address]: Bimal Knott MD Ordering Physician: Sawyer Case MD Date of Service: 01/08/24 Procedure(s): CT abdomen pelvis w IV con Accession Number(s): [id number] cc: Qiunton Callahan MD; Sawyer Case MD EXAMINATION: CT [...] right superficial femoral vein. There are likely [place]-Ariel bypass femoral, bilaterally.. OSSEOUS STRUCTURES: Multilevel thoracolumbar [...] 01/08/24 1221 DD/ 1105 TD/TT: 01/08/24 1125 Net Repairer: [place] [address] CT Scan Report Signed Patient: aZn Encinas MR#: [id number] : 1960 Acct:[id number] Age/Sex: 63 / M ADM Date: 01/07/24 Loc: .ICU 255-[address]: Bimal Knott MD Ordering Physician: Sawyer Case MD Date of Service: 01/08/24 Procedure(s): CT abd omen pelvis w IV con Accession Number(s): [id number] cc: Quinton Callahan MD; Sawyer Case MD [...] left inguinal scrotal region. LYMPH NODES: No rosemry s lymphadenopathy. VASCULAR: Vascular abnormality in the left inguinal region involving the vein and arterie s most likely the left common femoral vein. Intraluminal filling defects within the right superficial femoral vein. There are likely [place]-Ariel bypass femoral, bilaterally.. OSSEOUS STRUCTURES: Multilevel thoracolumbar [...] 01/08/2024 12:21 PM [facility] Dictated By: Theo Sawyer MD Signed By: <Electronically signed by Theo Steven MD in OV> 01/08/24 1221 DD/ 1105 TD/TT: 01/08/24 1125 Net Repairer: Fibrinogen Reviewed date:01/08/2024 08:33:39 AM Interpretation: Performing Lab:[facility], [address] [place] [phone] Notes/Report: Fibrinogen 441 259-690 MG/DL Complete Blood Count Auto Di ff Reviewed date:01/08/2024 02:05:08 PM Interpretation: Performing Lab:[facility], [address] [place] [phone] Notes/Report: White Blood Count 20.0 4.8-10.8 X10*3/uL [...] Drip Reviewed date:01/08/2024 02:05:08 PM Interpretation: Performing Lab:[facility], [address] [place] [phone] Notes/Report: PTT Heparin Drip > 200.0 53-77.9 SEC Results of PTT-HD called to and read back by MARIELA on 01/08/24 at 1155 by FROY. For information regarding the monitoring of heparin therapy, please refer to Pharmacy. Basic Metabolic Panel Reviewed date:01/10/2024 09:47:57 AM Interpretation: Performing Lab:[address] [address] Notes/Report: Sodium 134 135-145 mmol/L Potassium 4.9 [...] Phosphorus Reviewed date:01/10/2024 09:47:57 AM Interpretation: Performing Lab:[facility], [address] [place] [phone] Notes/Report: Phosphorus 4.1 2.7-4.5 mg/dL Magnesium Reviewed date:01/10/2024 09:47:57 AM Interpretation: Performing Lab:[facility], [address] [place] [address] Notes/Report: Magnesium 1.9 1.6-2.6 mg/dL Complete Blood Count Auto Di ff Reviewed date:01/10/2024 09:47:57 AM Interpretation: Performing Lab:[facility], [address] [place] [address] Notes/Report: White Blood Count 21.8 4.8-10.8 X10*3/uL [...] REVIEW Reviewed date:01/10/2024 09:47:57 AM Interpretation: Performing Lab:[facility], [address] [place] [phone] Notes/Report: SLIDE REVIEW VERIFIED ACT LR Reviewed date:01/11/2024 01:49:27 PM Interpretation: Performing Lab:[facility], [address] [place] [phone] Notes/Report: 203 [id number] AGUILA 0855 mulvec ACT 203 79-173 Celite s Results are converted to a reference Celite ACT value in seconds. A reference interval is unavailable for ACT. Complete Blood Count Auto Di ff Reviewed date:01/10/2024 09:47:57 AM Interpretation: Performing Lab:[facility], [address] [place] [phone] Notes/Report: White Blood Count 16.7 4.8-10.8 X10*3/uL [...] gy Reviewed date:01/10/2024 09:47:57 AM Interpretation: Performing Lab:[facility], [address] [place] [phone] Notes/Report: Hold Lav - Possible Hematology SEE NOTE Specimen will be held untested for 8 hours. Call Hematology if testing is desired. Prothrombin Time INR Reviewed date:01/10/2024 09:47:57 AM Interpretation: Performing Lab:[facility], [address] [place] [phone] Notes/Report: Prothrombin Time 11.5 10.9-12.4 SEC INTERNATIONAL [...] Drip Reviewed date:01/10/2024 09:47:57 AM Interpretation: Performing Lab:[facility], [address] [place] [phone] Notes/Report: PTT Heparin Drip 28.1 53-77.9 SEC For information regarding the monitoring of heparin therapy, please refer to Pharmacy. Basic Metabolic Panel Reviewed date:01/10/2024 09:47:57 AM Interpretation: Performing Lab:[facility], [address] [place] [phone] Notes/Report: Sodium 136 135-145 mmol/L Potassium 4.5 [...] Phosphorus Reviewed date:01/10/2024 09:47:57 AM Interpretation: Performing Lab:[facility], [address] [place] [phone] Notes/Report: Phosphorus 4.0 2.7-4.5 mg/dL Magnesium Reviewed date:01/10/2024 09:47:57 AM Interpretation: Performing Lab:[facility], [address] [place] [phone] Notes/Report: Magnesium 1.9 1.6-2.6 mg/dL Albumin Level Reviewed date:01/10/2024 09:47:57 AM Interpretation: Performing Lab:[facility], [address] [place] [phone] Notes/Report: Albumin Level 3.2 3.5-5.0 g/dL SLIDE REVIEW Reviewed date:01/10/2024 09:47:57 AM Interpretation: Performing Lab:[facility], [address] [place] [phone] Notes/Report: SLIDE REVIEW VERIFIED Complete Blood Count Auto Di ff Reviewed date:01/10/2024 09:47:57 AM Interpretation: Performing Lab:[facility], [address] [place] [phone] Notes/Report: White Blood Count 10.8 4.8-10.8 X10*3/uL [...] Drip Reviewed date:01/10/2024 09:47:57 AM Interpretation: Performing Lab:[facility], [address] [place] [phone] Notes/Report: PTT Heparin Drip 34.2 53-77.9 SEC For information regarding the monitoring of heparin therapy, please refer to Pharmacy. Complete Blood Count Auto Di ff Reviewed date:01/10/2024 09:47:57 AM Interpretation: Performing Lab:[facility], [address] [place] [phone] Notes/Report: White Blood Count 8.4 4.8-10.8 X10*3/uL [...] Panel Reviewed date:01/10/2024 09:47:57 AM Interpretation: Performing Lab:[facility], [address] [place] [phone] Notes/Report: Sodium 135 135-145 mmol/L Potassium 4.5 [...] Phosphorus Reviewed date:01/10/2024 09:47:57 AM Interpretation: Performing Lab:[facility], [address] [place] [phone] Notes/Report: Phosphorus 3.0 2.7-4.5 mg/dL Magnesium Reviewed date:01/10/2024 09:47:57 AM Interpretation: Performing Lab:[facility], [address] [place] [phone] Notes/Report: Magnesium 2.2 1.6-2.6 mg/dL PTT Heparin Drip Reviewed date:01/10/2024 09:47:57 AM Interpretation: Performing Lab:[facility], [address] [place] [phone] Notes/Report: PTT Heparin Drip 55.2 53-77.9 SEC For information regarding the monitoring of heparin therapy, please refer to Pharmacy. Complete Blood Count Auto Di ff Reviewed date:01/10/2024 09:47:57 AM Interpretation: Performing Lab:[facility], [address] [place] [phone] Notes/Report: White Blood Count 9.2 4.8-10.8 X10*3/uL [...] Hematocrit Reviewed date:01/11/2024 01:49:27 PM Interpretation: Performing Lab:[address] [address] Notes/Report: Hemoglobin 3.3 14.0-18.0 g/dl Results of HGB called to and read back by JONAS on 01/10/24 at 1959 by BORIS. Hematocrit 9.9 42.0-52.0 % Results of HCT called to and read back by JONAS on 01/10/24 at 2001 by BORIS. Pathologist Review - CBC Reviewed date:01/11/2024 01:49:26 PM Interpretation: Performing Lab:[facility], [address] [place] [phone] Notes/Report: Pathologist Review - CBC SEE NOTE Normochromic normocytic anemia. - Javi Farias M.D. Pathology Prothrombin Time INR Reviewed date:01/10/2024 09:47:57 AM Interpretation: Performing Lab:[facility], [address] [place] [phone] Notes/Report: Prothrombin Time 12.1 10.9-12.4 SEC INTERNATIONAL [...] Drip Reviewed date:01/10/2024 09:47:57 AM Interpretation: Performing Lab:[facility], [address] [place] [phone] Notes/Report: PTT Heparin Drip 44.5 53-77.9 SEC For information regarding the monitoring of heparin therapy, please refer to Pharmacy. Comprehensive Met. Panel Reviewed date:01/11/2024 01:49:27 PM Interpretation: Performing Lab:[facility], [address] [place] [phone] Notes/Report: Sodium 135 135-145 mmol/L Potassium 4.9 [...] Panel Reviewed date:01/10/2024 09:47:57 AM Interpretation: Performing Lab:[facility], [address] [place] [phone] Notes/Report: Sodium 136 135-145 mmol/L Potassium 4.1 [...] Acid Reviewed date:01/11/2024 01:49:27 PM Interpretation: Performing Lab:[facility], [address] [place] [phone] Notes/Report: Lactic Acid 7.8 0.5-2.0 mmol/L Critical value for test(s): LACTA Results called to and read back by:VIKRAM Person calling: TANG Date:01-10-2024 Time:2121 Phosphorus Reviewed date:01/10/2024 09:47:57 AM Interpretation: Performing Lab:[facility], [address] [place] [phone] Notes/Report: Phosphorus 2.8 2.7-4.5 mg/dL Magnesium Reviewed date:01/10/2024 09:47:57 AM Interpretation: Performing Lab:[facility], [address] [place] [phone] Notes/Report: Magnesium 2.0 1.6-2.6 mg/dL Albumin Level Reviewed date:01/10/2024 09:47:57 AM Interpretation: Performing Lab:[facility], [address] [place] [phone] Notes/Report: Albumin Level 3.5 3.5-5.0 g/dL Lactic Acid-LAB USE ONLY Reviewed date:01/11/2024 01:49:27 PM Interpretation: Performing Lab:[facility], [address] [place] [phone] Notes/Report: Lactic Acid-LAB USE ONLY 1.9 0.5-2.0 mmol/L Venous Blood Gases - POC Reviewed date:01/11/2024 01:49:27 PM Interpretation: Performing Lab:[facility], [address] [place] [phone] Notes/Report: VBG pH 7.42 7.32-7.43 METER #: [id number] 0250C VBG pCO2 25 METER #: [id number] 0250C VBG pO2 76 METER #: [id number] 0250C VBG Base Excess -6.7 METER #: [id number] VBG HCO3 16 22-26 mmol/L METER #: [id number] 0250C VBG O2 % Saturation TNP Hold Green Gel Reviewed date:01/11/2024 01:49:27 PM Interpretation: Performing Lab:[facility], [address] [place] [phone] Notes/Report: Hold Green Gel See Note Specimen held untested for 24 hours; Call to request Chemistry testing. CT abdomen pelvis w con Reviewed date:01/11/2024 01:49:27 PM Interpretation: Performing Lab: Notes/Report: [address] [place] [address] CT Scan Report Signed Patient: Zan Encinas MR#: [id number] : 1960 Acct:[id number] Age/Sex: 63 / M ADM Date: 01/07/24 Loc: [facility] 255-[address]: Bimal Knott MD Ordering Physician: Som Vela NP Date of Service: 01/10/24 Procedure(s): CT abdomen pelvis w IV con Accession Number(s): [id number] cc: Quinton Callahan MD; Som Vela NP [...] 01/10/2024 10:00 PM [facility] Dictated By: Jarret Ferrara MD Signed By: <Electronically signed by Jarret Ferrara MD in [place]> 01/10/242199 DD/ 21 TD/TT: 01/10/242021 Net Repairer: [place] [address] CT Scan Report Signed Patient: Zan Encinas MR#: [id number] : 1960 Acct:[id number] Age/Sex: 63 / M ADM Date: 01/07/24 Loc: .[facility] 255-[address]: Bimal Knott MD Ordering Physician: Som Vela NP Date of Service: 01/10/24 Procedure(s): CT abd omen pelvis w IV con Accession Number(s): [id number] cc: Quinton Callahan MD; Som Vela NP [...] 01/10/2024 10:00 PM [facility] Dictated By: Jarret Ferrara MD Signed By: <Electronically signed by Jarret Ferrara MD in OV> 01/10/242199 DD/ 21 TD/TT: 01/10/242021 Net Repairer: PTT Heparin Drip Reviewed date:01/11/2024 01:49:27 PM Interpretation: Performing Lab:[facility], [address] [place] [phone] Notes/Report: PTT Heparin Drip 80.2 53-77.9 SEC For information regarding the monitoring of heparin therapy, please refer to Pharmacy. PTT Heparin Drip Reviewed date:01/11/2024 01:49:27 PM Interpretation: Performing Lab:[facility], [address] [place] [phone] Notes/Report: PTT Heparin Drip 66.0 53-77.9 SEC For information regarding the monitoring of heparin therapy, please refer to Pharmacy. Complete Blood Count Auto Di ff Reviewed date:01/11/2024 01:49:26 PM Interpretation: Performing Lab:[facility], [address] [place] [phone] Notes/Report: White Blood Count 17.6 4.8-10.8 X10*3/uL [...] Diff Reviewed date:01/12/2024 07:43:31 AM Interpretation: Performing Lab:[facility], [address] [place] [phone] Notes/Report: White Blood Count 12.3 4.8-10.8 X10*3/uL [...] ff Reviewed date:01/11/2024 01:49:26 PM Interpretation: Performing Lab:[facility], [address] [place] [phone] Notes/Report: White Blood Count 18.2 4.8-10.8 X10*3/uL [...] Panel Reviewed date:01/11/2024 01:49:26 PM Interpretation: Performing Lab:[facility], [address] [place] [phone] Notes/Report: Sodium 135 135-145 mmol/L Potassium 4.6 [...] Phosphorus Reviewed date:01/11/2024 01:49:26 PM Interpretation: Performing Lab:[facility], [address] [place] [phone] Notes/Report: Phosphorus 4.3 2.7-4.5 mg/dL Magnesium Reviewed date:01/11/2024 01:49:26 PM Interpretation: Performing Lab:[facility], [address] [place] [phone] Notes/Report: Magnesium 2.2 1.6-2.6 mg/dL Albumin Level Reviewed date:01/11/2024 01:49:26 PM Interpretation: Performing Lab:[facility], [address] [place] [phone] Notes/Report: Albumin Level 3.6 3.5-5.0 g/dL SLIDE REVIEW Reviewed date:01/11/2024 01:49:26 PM Interpretation: Performing Lab:[facility], [address] [place] [phone] Notes/Report: SLIDE REVIEW VERIFIED Venous Blood Gases - POC Reviewed date:01/11/2024 01:49:26 PM Interpretation: Performing Lab:[facility], [address] [place] [phone] Notes/Report: VBG pH 7.49 7.32-7.43 METER #: [id number] additional_comment: Jeovany burgess [facility] sheryl VBG pCO2 35 METER #: [id number] additional_comment: Jeovany burgess [facility] sheryl VBG pO2 57 METER #: [id number] additional_comment: Jeovany burgess [facility] carolyn VBG Base Excess 4.0 METER #: [id number] additional_comment: Jeovany burgess [facility] sheryl VBG HCO3 27 22-26 mmol/L METER #: [id number] additional_comment: Jeovany [facility]gess [facility] henriquezc VBG O2 % Saturation 92.0 METER #: [id number] additional_comment: Jeovany stevenson henriquezc Venous Blood Gases - POC Reviewed date:01/11/2024 01:49:26 PM Interpretation: Performing Lab:[facility], [address] [place] [phone] Notes/Report: VBG pH 7.42 7.32-7.43 METER #: [id number] additional_comment: Jeovany aguilarbb henriquezc VBG pCO2 42 METER #: [id number] additional_comment: Jeovany stevenson henriquezc VBG pO2 35 METER #: [id number] additional_comment: Jeovany stevenson henriquezc VBG Base Excess 3.7 METER #: [id number] additional_comment: Jeovany stevenson henriquezc VBG HCO3 28 22-26 mmol/L METER #: [id number] additional_comment: Jeovany stevenson henriquezc VBG O2 % Saturation 62.0 METER #: [id number] additional_comment: Jeovany stevenson henriquezc Complete Blood Count Auto Di ff Reviewed date:01/11/2024 01:49:26 PM Interpretation: Performing Lab:[facility], [address] [place] [phone] Notes/Report: White Blood Count 14.9 4.8-10.8 X10*3/uL [...] ff Reviewed date:01/11/2024 08:19:34 PM Interpretation: Performing Lab:[facility], [address] [place] [phone] Notes/Report: White Blood Count 14.3 4.8-10.8 X10*3/uL [...] REVIEW Reviewed date:01/11/2024 08:19:34 PM Interpretation: Performing Lab:[facility], [address] [place] [phone] Notes/Report: SLIDE REVIEW VERIFIED Basic Metabolic Panel Reviewed date:01/12/2024 07:43:31 AM Interpretation: Performing Lab:[facility], [address] [place] [phone] Notes/Report: Sodium 133 135-145 mmol/L Potassium 4.0 [...] Phosphorus Reviewed date:01/12/2024 07:43:31 AM Interpretation: Performing Lab:[facility], [address] [place] [phone] Notes/Report: Phosphorus 2.7 2.7-4.5 mg/dL Magnesium Reviewed date:01/12/2024 07:43:31 AM Interpretation: Performing Lab:[facility], [address] [place] [phone] Notes/Report: Magnesium 2.4 1.6-2.6 mg/dL Complete Blood Count no Diff Reviewed date:01/13/2024 07:58:52 PM Interpretation: Performing Lab:[facility], [address] [place] [phone] Notes/Report: White Blood Count 11.9 4.8-10.8 X10*3/uL [...] ff Reviewed date:01/12/2024 07:43:31 AM Interpretation: Performing Lab:[facility], [address] [place] [phone] Notes/Report: White Blood Count 11.0 4.8-10.8 X10*3/uL [...] Panel Reviewed date:01/12/2024 07:43:31 AM Interpretation: Performing Lab:[facility], [address] [place] [phone] Notes/Report: Sodium 139 135-145 mmol/L Potassium 3.9 [...] Phosphorus Reviewed date:01/12/2024 07:43:31 AM Interpretation: Performing Lab:[facility], [address] [place] [phone] Notes/Report: Phosphorus 2.8 2.7-4.5 mg/dL Magnesium Reviewed date:01/12/2024 07:43:31 AM Interpretation: Performing Lab:[facility], [address] [place] [phone] Notes/Report: Magnesium 2.3 1.6-2.6 mg/dL SLIDE REVIEW Reviewed date:01/12/2024 07:43:31 AM Interpretation: Performing Lab:[address] [phone] Notes/Report: SLIDE REVIEW VERIFIED Venous Blood Gases - POC Reviewed date:01/12/2024 07:43:31 AM Interpretation: Performing Lab:[address] [address] Notes/Report: VBG pH 7.41 7.32-7.43 METER #: [id number] additional_comment: Jeovany stevenson henric VBG pCO2 47 METER #: [id number] additional_comment: Jeovany aguilarbb henric VBG pO2 34 METER #: [id number] additional_comment: Jeovany aguilarbb henric VBG Base Excess 5.9 METER #: [id number] additional_comment: Jeovany aguilarbb henric VBG HCO3 31 22-26 mmol/L METER #: [id number] additional_comment: Jeovany stevenson henric VBG O2 % Saturation 56.0 METER #: [id number] additional_comment: Jeovany southric Complete Blood Count Auto Di ff Reviewed date:01/12/2024 07:43:31 AM Interpretation: Performing Lab:[address] [phone] Notes/Report: White Blood Count 10.7 4.8-10.8 X10*3/uL [...] ff Reviewed date:01/13/2024 07:58:52 PM Interpretation: Performing Lab:[facility], [address] [place] [phone] Notes/Report: White Blood Count 11.2 4.8-10.8 X10*3/uL [...] Diff Reviewed date:01/13/2024 07:58:52 PM Interpretation: Performing Lab:[facility], [address] [place] [phone] Notes/Report: White Blood Count 12.6 4.8-10.8 X10*3/uL [...] ff Reviewed date:01/13/2024 07:58:52 PM Interpretation: Performing Lab:[facility], [address] [place] [phone] Notes/Report: White Blood Count 11.1 4.8-10.8 X10*3/uL [...] Panel Reviewed date:01/13/2024 07:58:52 PM Interpretation: Performing Lab:[facility], [address] [place] [phone] Notes/Report: Sodium 137 135-145 mmol/L Potassium 3.8 [...] Phosphorus Reviewed date:01/13/2024 07:58:52 PM Interpretation: Performing Lab:[facility], [address] [place] [phone] Notes/Report: Phosphorus 3.0 2.7-4.5 mg/dL Magnesium Reviewed date:01/13/2024 07:58:52 PM Interpretation: Performing Lab:[facility], [address] [place] [phone] Notes/Report: Magnesium 2.3 1.6-2.6 mg/dL Albumin Level Reviewed date:01/13/2024 07:58:52 PM Interpretation: Performing Lab:[facility], [address] [place] [phone] Notes/Report: Albumin Level 3.5 3.5-5.0 g/dL SLIDE REVIEW Reviewed date:01/13/2024 07:58:52 PM Interpretation: Performing Lab:[facility], [address] [place] [phone] Notes/Report: SLIDE REVIEW VERIFIED Venous Blood Gases - POC Reviewed date:01/13/2024 07:58:52 PM Interpretation: Performing Lab:[facility], [address] [place] [phone] Notes/Report: VBG pH 7.46 7.32-7.43 METER #: [id number] additional_comment: Jeovany stevenson henric VBG pCO2 37 METER #: [id number] additional_comment: Jeovany stevenson henric VBG pO2 55 METER #: [id number] additional_comment: Jeovany stevenson henric VBG Base Excess 3.2 METER #: [id number] additional_comment: Jeovany stevenson henric VBG HCO3 27 22-26 mmol/L METER #: [id number] additional_comment: Jeovany stevenson henric VBG O2 % Saturation 87.0 METER #: [id number] additional_comment: Jeovany southric Complete Blood Count Auto Di ff Reviewed date:01/13/2024 07:58:52 PM Interpretation: Performing Lab:[facility], [address] [place] [phone] Notes/Report: White Blood Count 12.6 4.8-10.8 X10*3/uL [...] ff Reviewed date:01/15/2024 06:02:02 AM Interpretation: Performing Lab:[facility], [address] [place] [phone] Notes/Report: White Blood Count 13.1 4.8-10.8 X10*3/uL [...] ff Reviewed date:01/15/2024 06:02:02 AM Interpretation: Performing Lab:[facility], [address] [place] [phone] Notes/Report: White Blood Count 12.1 4.8-10.8 X10*3/uL [...] Hematocrit Reviewed date:01/15/2024 06:02:02 AM Interpretation: Performing Lab:[facility], [address] [place] [phone] Notes/Report: Hemoglobin 7.9 14.0-18.0 g/dl Hematocrit 23.5 42.0-52.0 % Basic Metabolic Panel Reviewed date:01/15/2024 06:02:02 AM Interpretation: Performing Lab:[facility], [address] [place] [phone] Notes/Report: Sodium 136 135-145 mmol/L Potassium 3.8 [...] Phosphorus Reviewed date:01/15/2024 06:02:02 AM Interpretation: Performing Lab:[facility], [address] [place] [phone] Notes/Report: Phosphorus 2.8 2.7-4.5 mg/dL Magnesium Reviewed date:01/15/2024 06:02:02 AM Interpretation: Performing Lab:[facility], [address] [place] [phone] Notes/Report: Magnesium 2.2 1.6-2.6 mg/dL Albumin Level Reviewed date:01/15/2024 06:02:02 AM Interpretation: Performing Lab:[facility], [address] [place] [phone] Notes/Report: Albumin Level 3.4 3.5-5.0 g/dL SLIDE REVIEW Reviewed date:01/15/2024 06:02:02 AM Interpretation: Performing Lab:[facility], [address] [place] [phone] Notes/Report: SLIDE REVIEW VERIFIED Complete Blood Count no Diff Reviewed date:01/16/2024 08:51:12 AM Interpretation: Performing Lab:[facility], [address] [place] [phone] Notes/Report: White Blood Count 12.7 4.8-10.8 X10*3/uL [...] Diff Reviewed date:01/16/2024 08:51:12 AM Interpretation: Performing Lab:[facility], [address] [place] [phone] Notes/Report: White Blood Count 9.9 4.8-10.8 X10*3/uL [...] Panel Reviewed date:01/17/2024 05:05:01 AM Interpretation: Performing Lab:[facility], [address] [place] [phone] Notes/Report: Sodium 135 135-145 mmol/L Potassium 4.2 [...] Magnesium Reviewed date:01/17/2024 05:05:01 AM Interpretation: Performing Lab:[facility], [address] [place] [phone] Notes/Report: Magnesium 2.3 1.6-2.6 mg/dL Complete Blood Count Auto Di ff Reviewed date:01/18/2024 08:33:04 PM Interpretation: Performing Lab:[facility], [address] [place] [phone] Notes/Report: White Blood Count 12.0 4.8-10.8 X10*3/uL [...] te Reviewed date:01/18/2024 08:33:04 PM Interpretation: Performing Lab:[address] [address] Notes/Report: Erythrocyte Sedimentation Rate 92 0-15 MM/HR Patients with polycythemia and many hemoglobin abnormalities may have depressed sed rates whereas patients with anemia may have elevated sed rates. Prothrombin Time INR Reviewed date:01/18/2024 08:33:04 PM Interpretation: Performing Lab:[facility], [address] [place] [phone] Notes/Report: Prothrombin Time 13.4 10.9-12.4 SEC INTERNATIONAL [...] Panel Reviewed date:01/18/2024 08:33:04 PM Interpretation: Performing Lab:[address] [address] Notes/Report: Sodium 134 135-145 mmol/L Potassium 4.2 [...] Acid Reviewed date:01/18/2024 08:33:04 PM Interpretation: Performing Lab:[facility], [address] [place] [phone] Notes/Report: Lactic Acid 1.3 0.5-2.0 mmol/L C Reactive Protein Reviewed date:01/18/2024 08:33:04 PM Interpretation: Performing Lab:[facility], [address] [place] [phone] Notes/Report: C Reactive Protein 14.10 < or = 0.50 mg/dL Lipase Reviewed date:01/18/2024 08:33:04 PM Interpretation: Performing Lab:[address] [address] Notes/Report: Lipase 24 8-78 U/L SLIDE REVIEW Reviewed date:01/18/2024 08:33:04 PM Interpretation: Performing Lab:[facility], [address] [place] [phone] Notes/Report: SLIDE REVIEW VERIFIED Blood Culture (First) Reviewed date:01/24/2024 07:41:27 AM Interpretation: Performing Lab:[facility], [address] [place] [phone] Notes/Report: Blood Culture (First) No growth after 5 days. Blood Culture (Second) Reviewed date:01/24/2024 07:41:27 AM Interpretation: Performing Lab:[facility], [address] [place] [phone] Notes/Report: Blood Culture (Second) No growth after 5 days. US arterial duplex LE RT Reviewed date:01/21/2024 07:35:28 AM Interpretation: Performing Lab: Notes/Report: [address] [address] Ultrasound Report Signed with Addenda Patient: Zan Encinas MR#: [id number] : 1960 Acct:[id number] Age/Sex: 63 / M ADM Date: 01/18/24 Loc: .ED Attending Dr: Ordering Physician: Yuriy Dunbar Date of Service: 01/18/24 Procedure(s): US arterial duplex LE RT Accession Number(s): [id number] cc: Quinton Callahan MD; Yuriy Dunbar ADDENDUM ADDENDUM #1 Findings were communicated by telephone with Dr. Gerard by Dr. Zarate at 2034 hours. Electronically signed by: Placido Zarate MD 01/18/2024 08:41 PM [facility] Addendum Dictated By: Yuriy Zarate MD Addendum [...] OV> 01/18/242032 DD/ 1503 TD/TT: 01/18/24 1506 Net Repairer: [place] [address] Ultrasound Report Signed with Addenda Patient: Zan Encinas MR#: [id number] : 1960 Acct:[id number] Age/Sex: 63 / M ADM Date: 01/18/24 Loc: .ED Attending Dr: Ordering Physician: Yuriy Dunbar Date of Service: 01/18/24 Procedure(s): US arterial duplex LE RT Accession Number(s): [id number] cc: Quinton Callahan MD; Yuriy Dunbar ADDENDUM [...] by: Placido Zarate MD 01/18/2024 08:33 PM [facility] Dictated By: Yuriy Zarate MD Signed By: <Electronically signed by Yuriy Zarate MD in OV> 01/18/242032 DD/ 02 TD/TT: 01/18/241505 Net Repairer: DC XR foot RT min 3V Reviewed date:01/18/2024 08:33:04 PM Interpretation: Performing Lab: Notes/Report: [address] [address] XRay Report Signed Patient: Zan Encinas MR#: [id number] : 1960 Acct:[id number] Age/Sex: 63 / M ADM Date: 01/18/24 Loc: HO.ED Attending Dr: Ordering Physician: Yuriy Dunbar Date of Service: 01/18/24 Procedure(s): XR foot RT min 3V Accession Number(s): [id number] cc: Quinton Callahan MD; Yuriy Dunbar EXAMINATION: [...] 01/18/24 1619 DD/ 1516 TD/TT: 01/18/24 1534 Net Repairer: MICHELA [place] [address] XRay Report Signed Patient: Zan Encinas MR#: [id number] : 1960 Acct:[id number] Age/Sex: 63 / M ADM Date: 01/18/24 Loc: .ED Attending Dr: Ordering Physician: Yuriy Dunbar Date of Service: 01/18/24 Procedure(s): XR chito t RT min 3V Accession Number(s): [id number] cc: Quinton Callahan MD; Yuriy Dunbar EXAMINATION: [...] 01/18/24 1619 DD/ 1516 TD/TT: 01/18/24 1534 Net Repairer: MICHELA Complete Blood Count no Diff Reviewed date:02/04/2024 11:35:53 AM Interpretation: Performing Lab:[facility], [address] [place] [phone] Notes/Report: White Blood Count 11.5 4.8-10.8 X10*3/uL [...] INR Reviewed date:02/04/2024 11:35:53 AM Interpretation: Performing Lab:[facility], [address] [place] [phone] Notes/Report: Prothrombin Time 13.0 10.9-12.4 SEC INTERNATIONAL [...] Time Reviewed date:02/04/2024 11:35:53 AM Interpretation: Performing Lab:[facility], [address] [place] [phone] Notes/Report: Partial Thromboplastin Time 33.9 26.0-36.8 SEC For information regarding the monitoring of direct thrombin inhibitors, please refer to Pharmacy. Basic Metabolic Panel Reviewed date:02/04/2024 11:35:53 AM Interpretation: Performing Lab:[facility], [address] [place] [phone] Notes/Report: Sodium 138 135-145 mmol/L Potassium 4.4 [...] Pathology Reviewed date:02/08/2024 08:35:16 AM Interpretation: Performing Lab:[facility], [address] [place] [phone] Notes/Report: ---- Name: Toney Encinas joanie Cuevas Age/Sex: 63/M : 1960 Unit#: [id number] Attend Dr: Bimal Knott MD Re02/04/24 Status : ADM IN Location: [facility] 364-1 Disch: ---- SPEC : [id number] RECD : 02/04/24 STATUS: YUSUF MATHUR NUM: [id number] FRANTZ: 02/04/[address]: Bimal Knott MD ENTERED: 02/04/24 [...] label ed ?right leg? is a right nfsza-ncd-pzpa amputation specimen which measures 34.0 cm in [...] No other erosions or ulcers are identified. Hand Buffer sections are submitted labeled as follows: A1 and A2 sections f rom the proximal hallux; A3 distal phalangeal bone from the hallux, following decalcification; A4 anterior tibial vessels; A5 posterior tibial vessels; A6 a sample of maria g chase from the margin of resection. Cassettes A3 A4 and A5 are submitted following decalcification. CEDS CONTINUED ON NEXT PAGE ---- Name: HuangToneyeun Cuevas Age/Sex: 63/M : 1960 Unit#: [id number] Attend Dr: Bimal Knott MD Re02/04/24 Status : ADM IN Location: [facility] 364-1 Disch: ---- SPEC : [id number] RECD : 02/04/24 STATUS: YUSUF CANOClemente NUM: [id number] FRANTZ: 02/04/24-8 [facility] DR: Bimal Knott MD ENTERED: 02/04/24- 16 SP TYPE: Surgical OTHR DR: Quinton Callahan MD ORDERED: Gross Micro L5 Copies To: Quinton Callahan MD [address] [facility] [place] [address] Bimal Knott MD [facility] [address] [place], [place] [id number] ---- Signed (signature on file) Val Milton 02/06/24 1550 ---- END OF REPORT Type and Screen Reviewed date:02/04/2024 11:35:53 AM Interpretation: Performing Lab:[facility], [address] [place] [phone] Notes/Report: Blood Type OP Antibody Screen NEGATIVE Complete Blood Count no Diff Reviewed date:02/08/2024 08:35:16 AM Interpretation: Performing Lab:[facility], [address] [place] [phone] Notes/Report: White Blood Count 9.4 4.8-10.8 X10*3/uL [...] ff Reviewed date:02/08/2024 08:35:16 AM Interpretation: Performing Lab:[facility], [address] [place] [phone] Notes/Report: White Blood Count 11.2 4.8-10.8 X10*3/uL [...] Panel Reviewed date:02/08/2024 08:35:16 AM Interpretation: Performing Lab:[facility], [address] [place] [phone] Notes/Report: Sodium 137 135-145 mmol/L Potassium 3.9 [...] REVIEW Reviewed date:02/08/2024 08:35:16 AM Interpretation: Performing Lab:[address] [address] Notes/Report: SLIDE REVIEW VERIFIED Complete Blood Count no Diff Reviewed date:02/08/2024 08:35:16 AM Interpretation: Performing Lab:[address] [address] Notes/Report: White Blood Count 9.3 4.8-10.8 X10*3/uL [...] Panel Reviewed date:02/08/2024 08:35:16 AM Interpretation: Performing Lab:[address] [address] Notes/Report: Sodium 136 135-145 mmol/L Potassium 3.8 [...] Level Reviewed date:02/08/2024 08:35:16 AM Interpretation: Performing Lab:[facility], [address] [place] [phone] Notes/Report: Albumin Level 2.7 3.5-5.0 g/dL Complete Blood Count no Diff Reviewed date:02/08/2024 08:35:16 AM Interpretation: Performing Lab:[facility], [address] [place] [phone] Notes/Report: White Blood Count 9.0 4.8-10.8 X10*3/uL [...] Gel Reviewed date:02/08/2024 08:35:16 AM Interpretation: Performing Lab:[facility], [address] [place] [phone] Notes/Report: Hold Green Gel See Note Specimen held untested for 24 hours; Call to request Chemistry testing. Complete Blood Count Auto Di ff Reviewed date:05/27/2024 08:42:02 AM Interpretation: Performing Lab:[facility], [address] [place] [phone] Notes/Report: White Blood Count 10.9 4.8-10.8 X10*3/uL [...] te Reviewed date:05/27/2024 08:42:02 AM Interpretation: Performing Lab:[address] [address] Notes/Report: Erythrocyte Sedimentation Rate 10 0-15 MM/HR Patients with polycythemia and many hemoglobin abnormalities may have depressed sed rates whereas patients with anemia may have elevated sed rates. Comprehensive Met. Panel Reviewed date:05/27/2024 08:42:02 AM Interpretation: Performing Lab:[facility], [address] [place] [phone] Notes/Report: Sodium 138 135-145 mmol/L Potassium 4.3 [...] Acid Reviewed date:05/27/2024 08:42:02 AM Interpretation: Performing Lab:[address] [address] Notes/Report: Lactic Acid 1.4 0.5-2.0 mmol/L C Reactive Protein Reviewed date:05/27/2024 08:42:02 AM Interpretation: Performing Lab:[facility], [address] [place] [phone] Notes/Report: C Reactive Protein 1.01 < or = 0.50 mg/dL Blood Culture (First) Reviewed date:06/07/2024 04:51:50 AM Interpretation: Performing Lab:[facility], [address] [place] [phone] Notes/Report: Blood Culture (First) No growth after 5 days. Blood Culture (Second) Reviewed date:06/07/2024 04:51:50 AM Interpretation: Performing Lab:[facility], [address] [place] [phone] Notes/Report: Blood Culture (Second) No growth after 5 days. XR knee RT 4V Reviewed date:05/27/2024 08:42:02 AM Interpretation: Performing Lab: Notes/Report: [address] [address] XRay Report Signed Patient: Zan Encinas MR#: [id number] : 1960 Acct:[id number] Age/Sex: 64 / M ADM Date: 05/26/24 Loc: HO.ED Attending Dr: Ordering Physician: Gt Cruz Date of Service: 05/26/24 Procedure(s): XR knee RT 4V Accession Number(s): [id number] cc: Gt Cruz; Quinton Callahan MD EXAMINATION: XR KNEE, RIGHT CLINICAL INFORMATION: Right stump erythema/pus discharge COMPARISON: 10/01/2023. TECHNIQUE: Four views of the right knee. FINDINGS: There is mild generalized osteopenia. There has been a gvazw-hbs-fhuz amputation. There are no permeative changes involving [...] signed by Alvarado Cortes MD in OV> 05/26/241531 DD/ 51 TD/TT: 05/26/24 151 Net Repairer: [address] [address] XRay Report Signed Patient: Zan Encinas MR#: [id number] : 1960 Acct:[id number] Age/Sex: 64 / M ADM Date: 05/26/24 Loc: HO.ED Attending Dr: Ordering Physician: Gt Cruz Date of Service: 05/26/24 Procedure(s): XR kne e RT 4V Accession Number(s): [id number] cc: Gt Cruz; Quinton Callahan MD EXAMINATION: XR KNEE, RIGHT CLINICAL INFORMATION: Right stump erythema /pus discharge COMPARISON: 10/01/2023. TECHNIQUE: Four views of the multicare [facility]. FINDINGS: There is mild generalized osteopenia. There has been a afday-arg-suex amputation. There are no permeative changes involving [...] signed by Alvarado Cortes MD in OV> 05/26/241531 DD/ 51 TD/TT: 05/26/24 1510 Net Repairer: Complete Blood Count Auto Di ff Reviewed date:05/27/2024 08:42:02 AM Interpretation: Performing Lab:[facility], [address] [place] [phone] Notes/Report: White Blood Count 9.2 4.8-10.8 X10*3/uL [...] Panel Reviewed date:05/27/2024 08:42:02 AM Interpretation: Performing Lab:[facility], [address] [place] [phone] Notes/Report: Sodium 140 135-145 mmol/L Potassium 3.8 [...] Creatinine Reviewed date:05/27/2024 08:42:02 AM Interpretation: Performing Lab:[address] [address] Notes/Report: Creatinine 0.84 0.5-1.4 mg/dL Creatinine Clr [...] Random Reviewed date:05/28/2024 04:55:44 AM Interpretation: Performing Lab:[facility], [address] [place] [phone] Notes/Report: Vancomycin Random 13.2 15-20 mcg/mL MR knee RT wo/w con Reviewed date:05/28/2024 04:55:44 AM Interpretation: Performing Lab: Notes/Report: [address] [address] Magnetic Resonance Report Signed Patient: Zan Encinas MR#: [id number] : 1960 Acct:[id number] Age/Sex: 64 / M ADM Date: 05/26/24 Loc: HO.S3 376-[address]: Luciano Mari MD Ordering Physician: Keith Menendez MD Date of Service: 05/27/24 Procedure(s): MR knee RT wo/w con Accession Number(s): [id number] cc: Quinton Callahan MD; Keith Menendez MD [...] 05/27/24 1626 DD/ 1527 TD/TT: 05/27/24 1549 Net Repairer: [place] [address] Magnetic Resonance Report Signed Patient: Zan Encinas MR#: [id number] : 1960 Acct:[id number] Age/Sex: 64 / M ADM Date: 05/26/24 Loc: [facility] 376-[address]: Alfredo Mari MD Ordering Physician: Keith Menendez MD Date of Service: 05/27/24 Procedure(s): MR norma e RT wo/w con Accession Number(s): [id number] cc: Quinton Callahan MD; Keith Menendez MD [...] 05/27/24 1626 DD/ 1527 TD/TT: 05/27/24 1549 Net Repairer: Creatinine Reviewed date:05/28/2024 02:19:09 PM Interpretation: Performing Lab:[facility], [address] [place] [phone] Notes/Report: Creatinine 0.81 0.5-1.4 mg/dL Creatinine Clr [...] Random Reviewed date:05/30/2024 07:30:54 PM Interpretation: Performing Lab:[facility], [address] [place] [phone] Notes/Report: Vancomycin Random 13.4 15-20 mcg/mL Hold Lav - Possible Hematolo gy Reviewed date:05/30/2024 07:30:54 PM Interpretation: Performing Lab:[facility], [address] [place] [phone] Notes/Report: Hold Lav - Possible Hematology SEE NOTE Specimen will be held untested for 8 hours. Call Hematology if testing is desired. Creatinine Reviewed date:05/30/2024 07:30:54 PM Interpretation: Performing Lab:[facility], [address] [place] [phone] Notes/Report: Creatinine 0.79 0.5-1.4 mg/dL Creatinine Clr [...] ff Reviewed date:07/01/2024 10:06:14 AM Interpretation: Performing Lab:[facility], [address] [place] [phone] Notes/Report: White Blood Count 8.9 4.8-10.8 X10*3/uL [...] Creatinine Reviewed date:07/01/2024 10:06:14 AM Interpretation: Performing Lab:[facility], [address] [place] [phone] Notes/Report: Creatinine 1.10 0.5-1.4 mg/dL Estimated Glomerular Filt Rate > 60 Chronic Kidney Disease: Estimated GFR < 60 mL/min/1.73m2 Severe Kidney Disease: Estimated GFR < 15 mL/min/1.73m2 Vancomycin Trough Reviewed date:07/01/2024 10:06:14 AM Interpretation: Performing Lab:[facility], [address] [place] [phone] Notes/Report: Vancomycin Trough 20.4 10.0-20.0 mcg/mL Complete Blood Count no Diff Reviewed date:10/13/2024 03:48:51 PM Interpretation: Performing Lab:[facility], [address] [place] [phone] Notes/Report: White Blood Count 8.2 4.8-10.8 X10*3/uL Red Blood Count 5.04 4.60-5.80 X10*6/uL Hemoglobin 15.7 14.0-18.0 g/dl Hematocrit 46.8 42.0-52.0 % Mean Corpuscular Volume 92.9 80.0-98.0 fL Mean Corpuscular Hemoglobin 31.2 27.0-33.0 pg Mean Corpuscular HGB Conc 33.5 31.0-36.0 g/dl Red Cell Distribution Width 13.1 11.0-16.0 % Platelet Count 251 160-400 X10*3/uL Mean Platelet Volume 9.4 9.4-12.4 fL NRBC Pct Auto 0.0 0.0-0.2 /100WBC NRBC Abs Auto 0.000 0.0-0.012 X10*3/uL Basic Metabolic Panel Reviewed date:10/13/2024 03:48:51 PM Interpretation: Performing Lab:[address] [phone] Notes/Report: Sodium 142 135-145 mmol/L Potassium 4.5 3.3-5.1 mmol/L Chloride 107 96-108 mmol/L Carbon Dioxide 26 22-29 mmol/L Anion Gap 14 12-20 Blood Urea Nitrogen 18 9-16 mg/dL Creatinine 1.15 0.5-1.4 mg/dL Creatinine Clr Calc Pharmacy 69.3 eGFR (calculated from the MDRD study equation) and eCrCl (calculated from the Cockcroft-Gault equation) are based on different parameters and may not yield comparable results. If eCrCl result is absurd, please check patient's height/weight. Estimated Glomerular Filt Rate > 60 Chronic Kidney Disease: Estimated GFR < 60 mL/min/1.73m2 Severe Kidney Disease: Estimated GFR < 15 mL/min/1.73m2 Glucose Random 95 60-115 mg/dL Calcium 9.6 8.4-10.2 mg/dL Gram stain Reviewed date:10/21/2024 05:29:45 AM Interpretation: Performing Lab:[address] [phone] Notes/Report: BONE RIGHT TIBIA BONE RIGHT TIBIA Gram stain Gram stain results: Gram stain No polys Gram stain 4+ red blood cells Gram stain No organisms seen Routine Culture Reviewed date:10/13/2024 03:48:51 PM Interpretation: Performing Lab:[address] [phone] Notes/Report: RIGHT BKA DEEP CULTURE Routine Culture Report - external Routine Culture 1+ Mixed skin rocio O:STAAUR Staphylococcus aureus Routine Culture Quant Org ID Routine Culture 1+ Clindamycin <=0.25 Erythromycin <=0.25 Levofloxacin 0.25 Oxacillin 0.5 Penicillin-G >=0.5 Tetracycline <=1 Trimethoprim/Sulfamethox azole <=10 Anaerobic Culture Reviewed date:10/21/2024 05:29:45 AM Interpretation: Performing Lab:[address] [place] [address] Notes/Report: BONE RIGHT TIBIA BONE RIGHT TIBIA Anaerobic Culture Report Anaerobic Culture No anaerobes isolated. Gram stain Reviewed date:10/13/2024 03:48:51 PM Interpretation: Performing Lab:[facility], [address] [place] [phone] Notes/Report: RIGHT BKA DEEP CULTURE Gram stain Gram stain results: Gram stain 1+ polys Gram stain 4+ red blood cells Gram stain No organisms seen Routine Culture Reviewed date:10/21/2024 05:29:45 AM Interpretation: Performing Lab:[facility], [address] [place] [phone] Notes/Report: Clindamycin <=0.25 Erythromycin <=0.25 Levofloxacin 0.25 Oxacillin 0.5 Penicillin-G >=0.5 Tetracycline <=1 Trimethoprim/Sulfamethox azole <=10 Clindamycin >=8 Erythromycin >=8 Levofloxacin <=0.12 Oxacillin >=4 Penicillin-G >=0.5 Tetracycline >=16 Trimethoprim/Sulfamethox azole 160 Vancomycin 1 Complete Blood Count Auto Di ff Reviewed date:10/21/2024 05:29:45 AM Interpretation: Performing Lab:[facility], [address] [place] [phone] Notes/Report: White Blood Count 8.1 4.8-10.8 X10*3/uL Red Blood Count 4.59 4.60-5.80 X10*6/uL Hemoglobin 14.4 14.0-18.0 g/dl Hematocrit 42.8 42.0-52.0 % Mean Corpuscular Volume 93.2 80.0-98.0 fL Mean Corpuscular Hemoglobin 31.4 27.0-33.0 pg Mean Corpuscular HGB Conc 33.6 31.0-36.0 g/dl Red Cell Distribution Width 13.2 11.0-16.0 % Platelet Count 233 160-400 X10*3/uL Mean Platelet Volume 9.7 9.4-12.4 fL Neutrophils Percent Auto 70.6 45-73 % Imm Gran Pct Auto 0.4 0.0-0.4 % Lymphocytes Percent Auto 16.8 20-40 % Monocytes Percent Auto 8.8 2-11 % Eosinophils Percent Auto 2.8 0-4 % Basophils Percent Auto 0.6 0-2 % NRBC Pct Auto 0.0 0.0-0.2 /100WBC Neutrophils Absolute Auto 5.7 2.0-8.3 x10*3/uL Imm Gran Abs Auto 0.03 0.00-0.03 X10*3/uL Lymphocytes Absolute Auto 1.4 1.2-4.9 X10*3/uL Monocytes Absolute Auto 0.7 0.1-1.2 X10*3/uL Eosinophils Absolute Auto 0.2 0.0-0.4 X10*3/uL Basophils Absolute Auto 0.1 0.0-0.2 X10*3/uL NRBC Abs Auto 0.000 0.0-0.012 X10*3/uL Erythrocyte Sedimentation Ra te Reviewed date:10/21/2024 05:29:45 AM Interpretation: Performing Lab:[address] [phone] Notes/Report: Erythrocyte Sedimentation Rate 5 0-15 MM/HR Patients with polycythemia and many hemoglobin abnormalities may have depressed sed rates whereas patients with anemia may have elevated sed rates. Comprehensive Met. Panel Reviewed date:10/21/2024 05:29:45 AM Interpretation: Performing Lab:[address] [phone] Notes/Report: Sodium 139 135-145 mmol/L Potassium 4.3 3.3-5.1 mmol/L Chloride 107 96-108 mmol/L Carbon Dioxide 26 22-29 mmol/L Anion Gap 10 12-20 Blood Urea Nitrogen 18 9-16 mg/dL Creatinine 1.07 0.5-1.4 mg/dL Creatinine Clr Calc Pharmacy 74.5 eGFR (calculated from the MDRD study equation) and eCrCl (calculated from the Cockcroft-Gault equation) are based on different parameters and may not yield comparable results. If eCrCl result is absurd, please check patient's height/weight. Estimated Glomerular Filt Rate > 60 Chronic Kidney Disease: Estimated GFR < 60 mL/min/1.73m2 Severe Kidney Disease: Estimated GFR < 15 mL/min/1.73m2 Glucose Random 94 60-115 mg/dL Calcium 8.9 8.4-10.2 mg/dL Bilirubin Total 0.4 0.0-1.0 mg/dL Aspartate Amino Transferase 21 5-37 U/L Alanine Aminotransferase 16 0-40 U/L Total Protein 5.9 6.5-8.0 g/dL Albumin Level 3.8 3.5-5.0 g/dL Alkaline Phosphatase 75 39-117 U/L C Reactive Protein Reviewed date:10/21/2024 05:29:45 AM Interpretation: Performing Lab:[facility], [address] [place] [phone] Notes/Report: C Reactive Protein 0.52 < or = 0.50 mg/dL Gram stain Reviewed date:10/24/2024 02:48:30 PM Interpretation: Performing Lab:[address] [address] Notes/Report: R BKA surgical site Gram stain Gram stain results: Gram stain 3+ polys Gram stain 2+ epithelial cells Gram stain 3+ Gram-negative rods Gram stain 1+ Gram-positive cocci Routine Culture Reviewed date:10/24/2024 02:48:30 PM Interpretation: Performing Lab:[facility], [address] [place] [phone] Notes/Report: R BKA surgical site O:PSEAER Pseudomonas aeruginosa Routine Culture Quant Org ID Routine Culture 3+ O:CORSPE Corynebacterium species Routine Culture No susc Routine Culture Standard methods for susceptibility testing not established. Routine Culture Quant Org ID Routine Culture 2+ Cefepime 2 Ciprofloxacin 0.12 Gentamicin <=1 Meropenem 0.5 Piperacillin/Tazobactam <=4 Blood Culture (First) Reviewed date:11/07/2024 05:47:41 AM Interpretation: Performing Lab:[facility], [address] [place] [phone] Notes/Report: Blood Culture (First) No growth after 5 days. Blood Culture (Second) Reviewed date:11/07/2024 05:47:41 AM Interpretation: Performing Lab:[address] [phone] Notes/Report: Blood Culture (Second) No growth after 5 days. XR knee RT 4V Reviewed date:10/21/2024 05:29:45 AM Interpretation: Performing Lab: Notes/Report: [address] [address] XRay Report Signed Patient: Zan Encinas MR#: [id number] : 1960 Acct:[id number] Age/Sex: 64 / M ADM Date: 10/20/24 Loc: HO.ED Attending Dr: Ordering Physician: Pooja Tapia Date of Service: 10/20/24 Procedure(s): XR knee RT 4V Accession Number(s): [id number] cc: Quinton Callahan MD; Pooja Tapia EXAMINATION: XR KNEE, RIGHT CLINICAL INFORMATION: BKA, concern for osteo COMPARISON: May 26, 2024 TECHNIQUE: Four views of the right knee. FINDINGS: Redemonstrated are changes related to below the knee amputation through the proximal diaphysis of the tibia and fibula. Numerous surgical clips are again noted in the medial and posterior central soft tissues. Vascular stent is redemonstrated in the distal femoral artery. There is soft tissue swelling in the region of the stump. There are new skin lazarus distally. There is diffuse osteopenia. There is patchy focal lytic areas in the distal end of the remaining tibia that are new when compared to the prior. The distal end of the dictated fibula appears stable. XR/XR knee RT 4V IMPRESSION: Possible osteomyelitis in the distal end of the remaining right tibia. Increasing diffuse osteopenia could be related to disuse. Electronically signed by: Alfredo Kumar MD 10/20/2024 01:11 PM EDT Dictated By: Alfredo Kumar MD Signed By: <Electronically signed by Alfredo Kumar MD in OV> 10/20/24 1311 DD/ 1156 TD/TT: 10/20/24 1300 Net Repairer: [address] [address] XRay Report Signed Patient: Zan Encinas MR#: [id number] : 1960 Acct:[id number] Age/Sex: 64 / M ADM Date: 10/20/24 Loc: HO.ED Attending Dr: Ordering Physician: Pooja Tapia Date of Service: 10/20/24 Procedure(s): XR kne e RT 4V Accession Number(s): [id number] cc: Quinton Callahan MD; Pooja Tapia EXAMINATION: XR KNEE, RIGHT CLINICAL INFORMATION: BKA, concern for osteo COMPARISON: May 26, 2024 TECHNIQUE: Four views of the ri ght knee. FINDINGS: Redemonstrated are changes related to below the knee amputation through the proximal diaphys is of the tibia and fibula. Numerous surgical cl ips are again noted in the medial and posterior central soft tissues. Vascular stent is redemonstrated in the distal femoral artery. There is soft tissue swelling in the region of the stump. There are new skin lazarus distally. There is diffuse osteopenia. There is patchy foca l lytic areas in the distal end of the remaining tibia that are new w hen compared to the prior. The distal end of th e dictated fibula appears stable. X R/XR knee RT 4V IMPRESSION: Possible osteomyelit is in the distal end of the remaining right tibia. Increasing diffuse osteopenia could be related to disuse. Electronically ivania d by: Alfreod Kumar MD 10/20/2024 01:11 PM EDT Dictated By: Alfredo Kumar MD Signed By: <Electronically signed by Alfredo Kumar MD in OV> 10/20/24 1311 DD/ 1156 TD/TT: 10/20/24 1300 Net Repairer: Complete Blood Count no Diff Reviewed date:10/24/2024 02:48:30 PM Interpretation: Performing Lab:[facility], [address] [place] [phone] Notes/Report: White Blood Count 6.8 4.8-10.8 X10*3/uL Red Blood Count 4.43 4.60-5.80 X10*6/uL Hemoglobin 13.9 14.0-18.0 g/dl Hematocrit 40.9 42.0-52.0 % Mean Corpuscular Volume 92.3 80.0-98.0 fL Mean Corpuscular Hemoglobin 31.4 27.0-33.0 pg Mean Corpuscular HGB Conc 34.0 31.0-36.0 g/dl Red Cell Distribution Width 13.2 11.0-16.0 % Platelet Count 211 160-400 X10*3/uL Mean Platelet Volume 10.3 9.4-12.4 fL NRBC Pct Auto 0.0 0.0-0.2 /100WBC NRBC Abs Auto 0.000 0.0-0.012 X10*3/uL Basic Metabolic Panel Reviewed date:10/24/2024 02:48:30 PM Interpretation: Performing Lab:[facility], [address] [place] [phone] Notes/Report: Sodium 142 135-145 mmol/L Potassium 4.3 3.3-5.1 mmol/L Chloride 108 96-108 mmol/L Carbon Dioxide 26 22-29 mmol/L Anion Gap 12 12-20 Blood Urea Nitrogen 13 9-16 mg/dL Creatinine 0.94 0.5-1.4 mg/dL Creatinine Clr Calc Pharmacy 84.8 eGFR (calculated from the MDRD study equation) and eCrCl (calculated from the Cockcroft-Gault equation) are based on different parameters and may not yield comparable results. If eCrCl result is absurd, please check patient's height/weight. Estimated Glomerular Filt Rate > 60 Chronic Kidney Disease: Estimated GFR < 60 mL/min/1.73m2 Severe Kidney Disease: Estimated GFR < 15 mL/min/1.73m2 Glucose Random 85 60-115 mg/dL Calcium 8.6 8.4-10.2 mg/dL TSH reflex Free T4 Reviewed date:10/24/2024 02:48:30 PM Interpretation: Performing Lab:[facility], [address] [place] [phone] Notes/Report: TSH reflex Free T4 1.34 0.32-4.0 uIU/mL Vancomycin Random Reviewed date:10/24/2024 02:48:30 PM Interpretation: Performing Lab:[facility], [address] [place] [phone] Notes/Report: Vancomycin Random 12.7 15-20 mcg/mL Hold Lav - Possible Hematolo gy Reviewed date:10/24/2024 02:48:30 PM Interpretation: Performing Lab:[facility], [address] [place] [phone] Notes/Report: Hold Lav - Possible Hematology SEE NOTE Specimen will be held untested for 8 hours. Call Hematology if testing is desired. Creatinine Reviewed date:10/24/2024 02:48:30 PM Interpretation: Performing Lab:[facility], [address] [place] [phone] Notes/Report: Creatinine 1.09 0.5-1.4 mg/dL Creatinine Clr Calc Pharmacy 73.1 eGFR (calculated from the MDRD study equation) and eCrCl (calculated from the Cockcroft-Gault equation) are based on different parameters and may not yield comparable results. If eCrCl result is absurd, please check patient's height/weight. Estimated Glomerular Filt Rate > 60 Chronic Kidney Disease: Estimated GFR < 60 mL/min/1.73m2 Severe Kidney Disease: Estimated GFR < 15 mL/min/1.73m2 Vancomycin Random Reviewed date:10/24/2024 02:48:30 PM Interpretation: Performing Lab:[facility], [address] [place] [phone] Notes/Report: Vancomycin Random 12.4 15-20 mcg/mL Hold Lav - Possible Hematolo gy Reviewed date:10/24/2024 02:48:30 PM Interpretation: Performing Lab:[facility], [address] [place] [phone] Notes/Report: Hold Lav - Possible Hematology SEE NOTE Specimen will be held untested for 8 hours. Call Hematology if testing is desired. Creatinine Reviewed date:10/24/2024 02:48:30 PM Interpretation: Performing Lab:[facility], [address] [place] [phone] Notes/Report: Creatinine 1.14 0.5-1.4 mg/dL Creatinine Clr Calc Pharmacy 69.9 eGFR (calculated from the MDRD study equation) and eCrCl (calculated from the Cockcroft-Gault equation) are based on different parameters and may not yield comparable results. If eCrCl result is absurd, please check patient's height/weight. Estimated Glomerular Filt Rate > 60 Chronic Kidney Disease: Estimated GFR < 60 mL/min/1.73m2 Severe Kidney Disease: Estimated GFR < 15 mL/min/1.73m2 Vancomycin Random Reviewed date:10/24/2024 02:48:30 PM Interpretation: Performing Lab:[facility], [address] [place] [phone] Notes/Report: Vancomycin Random 18.9 15-20 mcg/mL Reason For Referral Reason Evaluate and Treat Irregular Heart Rate History of A-Fib Diagnosis 1 Irregular heart rate (I49.9) Diagnosis 2 Left bundle branch b lock (I44.7) Diagnosis 3 History of atrial fi brillation (Z86.79) Referral Organization Quinton Callahan III, MD Referring Provider First Name [place] Referring Provider Last Name [place] Referring Provider Speciality Internal edicine Referred Provider [facility] er, Cardiology Referred Provider Specialty [...] currently Admitted into . Referral Priority Routine Reason left renal hematoma evaluate and treatment Diagnosis 1 Hematoma of left kid luz, initial encounter (S37.012A) Referral Organization Quinton Callahan III, MD Referring Provider First Name Quinton Referring Provider Last Name [place] Referring Provider Speciality Internal edicine Referred Provider Chloe Flores Referred Provider Specialty Urology General Notes Jolie Gonzalez CMA 09/30 03:24:56 PM >I called Dr Flores [...] Specialty Gastroentero logy General Notes Jolie Gonzalez VALE 09/30 03:23:14 PM >Called Dr Campos office pt missed his appt in July due to being in the hospital . Per Dr Callahan rescheduled his appt they scheduled the appt for 02/04/2025 at 1pm patient mailed this appt information . pt has been seen there before so no records needed to be sent Referral Priority Routine Referral Appointment Date 02/04/2025 Medications Medication SIG (Take, Route, Frequency, Duration) [...] 1 tablet by mouth once daily Active Social History [...] Problem Status W/U Status Risk Notes Problem 227513327 Overweight (E66.3) Active confirmed His body mass index is 29. We discussed diet and nutrition. I recommended aggressive weight loss and sodium restriction. Problem 310148932 Mixed hyperlipidemia (E78.2) Active confirmed A comprehensive laboratory database with a fasting lipid profile will be obtained. He was continued on his currrent meddications. Problem 35444977 Chronic obstructive pulmonary disease, unspecified COPD type (J44.9) Active confirmed He has resumed smoking 5 cigarettes per day. He was counseled about this and made aware of the smoking cessation programs in the area. Problem 84059400 Tobacco dependence (F17.200) Active confirmed I have counseled him about smoking cessation and offered to refer him to smoking cessation programs in the community. He said he would consider this and try to cut down. Problem Left bundle branch block (90002728) Left bundle branch block (I44.7) Active confirmed The metal sprayer machined parts's interpretation of the perfusion test was that the defect in the septum may be due to the bundle branch block. I will discuss this with cardiology. Problem 46322620 Hiatal hernia (K44.9) Active confirmed The symptoms of his esophageal reflux and hiatal hernia well controlled with current medications. No change in his regimen as needed. Problem 983575396 Peripheral arterial disease (I73.9) Active confirmed He is seeing the vascular surgeon eevery 2 weeks. 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 The plan is to fit him for a prosthesis. He denies any ulcers or claudication in the left leg. Problem Hoarseness (64112202) Hoarseness (R49.0) Active confirmed He will be referred to ENT for indirect laryngoscopy. Problem 2227960 Umbilical hernia without obstruction and without gangrene (K42.9) Active confirmed This is asymptomatic and requires no treatment at this time. Problem 836813574 Benign prostatic hyperplasia with lower urinary tract symptoms (N40.1) Active confirmed The tamsulosin was continued today. He will notify me if his symptoms worsen. He has had no retention. He has symptoms of prostatism. Problem 124893543 Acute right-sided low back pain with right-sided sciatica (M54.41) Active confirmed His back pain continues and I have increased the gabapentin. Problem Cardiac arrhythmia (690614352) Irregular heart rate (I49.9) Active confirmed These episodes had night have increased lately. He has had no chest pain. He has had no increase in his chronic dyspnea. Holter monitor has been ordered. He is not anticoagulated. Problem 421359381 Palmer's esophagus determined by endoscopy (K22.70) Active confirmed He is due for an endoscopy and was referred back to his gastroenterolog ist, Dr. Quinton Campos. 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 Problem 45744086671616578 Carpal tunnel syndrome on both sides (G56.03) Active confirmed He has a history of carpal tunnel syndrome treated by Dr. Raphael. He is currently asymptomatic. 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 He is currently on an antibiotic. His pain is mild. Vital Signs Heart Rate 66 /min 10/29/2024 Temperature 98.9 degrees Fahrenheit 10/29/2024 Blood pressure diastolic 86 mm Hg 10/29/2024 Height 73 in 10/29/2024 Blood pressure systolic 127 mm Hg 10/29/2024 Weight 187 lbs 10/29/2024 BMI 24.67 kg/m2 10/29/2024 Encounters Encounter Location Date Provider Diagnosis Quinton Callahan III, MD [address] [place] [address] [place] [address] 12/28/2023 Quinton Callahan Peripheral arterial disease I73.9 ; Chronic obstructive pulmonary disease, unspecified COPD type J44.9 ; Benign prostatic hyperplasia with lower urinary tract symptoms N40.1 ; Palmer's esophagus determined by endoscopy K22.70 ; Hiatal hernia K44.9 ; Overweight E66.3 ; Tobacco dependence F17.200 and Mixed hyperlipidemia E78.2 Quinton Callahan III, MD [address] [place] [address] [place] [phone] 06/12/2024 Quinton Callahan Peripheral arterial disease I73.9 ; Benign prostatic hyperplasia with lower urinary tract symptoms N40.1 ; Palmer's esophagus determined by endoscopy K22.70 ; Chronic obstructive pulmonary disease, unspecified COPD type J44.9 ; Overweight E66.3 ; Tobacco dependence F17.200 and Mixed hyperlipidemia E78.2 Quinton Callahan III, MD [address] [place] [address] [place] [id number] 07/10/2024 Quinton Callahan Peripheral arterial disease I73.9 [...] Tobacco dependence F17.200 Quinton Callahan III, MD [address] [place] [address] [place] [id number] 09/09/2024 Quinton Callahan Irregular heart rate I49.9 [...] of right tibia with draining sinus M86.461 Quinton Callahan III, MD [address] [place] [address] [place] [id number] 09/30/2024 Quinton Callahan Chronic osteomyeliti s of right tibia with draining sinus M86.461 ; Overweight E66.3 ; Umbilical hernia without obstruction and without gangrene K42.9 ; Peripheral arterial disease I73.9 ; Chronic obstructive pulmonary disease, unspecified COPD type J44.9 ; Splenic vein thrombosis I82.890 ; Palmer's esophagus determined by endoscopy K22.70 and Tobacco dependence F17.200 Quinton Callahan III, MD [address] [place] [address] [place] [id number] 10/29/2024 Quinton Callahan Chronic osteomyeliti s of right tibia with draining sinus M86.461 ; Tobacco dependence F17.200 ; Peripheral arterial disease I73.9 ; Palmer's esophagus determined by endoscopy K22.70 ; Chronic obstructive pulmonary disease, unspecified COPD type J44.9 ; Hiatal hernia K44.9 and Mixed hyperlipidemia E78.2 Quinton Callahan III, MD [address] [facility] [place] [id number] 11/27/2023 Quinton Callahan III, MD [address] [facility] [place] [id number] 12/18/2023 Quinton Callahan III, MD [address] [facility] [place] [id number] 12/21/2023 Quinton Callahan III, MD [address] [place] [address] [place] [id number] 12/21/2023 Quinton Callahan III, MD [address] [place] [address] [place] [id number] 02/12/2024 Quinton Callahan III, MD [address] [place] [address] [place] [id number] 03/04/2024 Quinton Callahan III, MD [address] [place] [address] [place] [id number] 05/02/2024 Quinton Callahan III, MD [address] [place] [address] [place] [id number] 05/02/2024 Quinton Callahan Peripheral arterial disease I73.[address] [id number] 06/02/2024 Quinton Callahan III, MD [address] [place] [address] [place] [id number] 07/23/2024 Quinton Calalhan III, MD [address] [place] [address] [place] [id number] 08/27/2024 Quinton Callahan III, MD [address] [place] [address] [place] [phone] 09/04/2024 Quinton Callahan Assessments Encounter Date Diagnosis (ICD Code) Assessment Notes Treat ment Notes Treatment Clinical Notes 12/28/2023 Chronic obstructive pulmonary disease, unspecified COPD [...] chronicity of the drainage in the infection. 09/09/2024 Tobacco dependence (ICD-10 - F17.200) I have counseled him about smoking cessation and offered to refer him to smoking cessation programs in the community. He said he would consider this and try to cut down. 09/09/2024 Irregular heart rate (ICD-10 - I49.9) These episodes had night have increased lately. He has had no chest pain. He has had no increase in his chronic dyspnea. Holter monitor has been ordered. He is not anticoagulated. 09/30/2024 Overweight (ICD-10 - E66.3) His body mass index is 29. We discussed diet and nutrition. I recommended aggressive weight loss and sodium restriction. 09/30/2024 Chronic osteomyeliti s of right tibia with draining sinus (ICD-10 - M86.461) He has been to vascular surgery and he may need more surgery. He is currently on an antibiotic. 10/29/2024 Tobacco dependence (ICD-10 - F17.200) I have counseled him about smoking cessation and offered to refer him to smoking cessation programs in the community. He said he would consider this and try to cut down. 10/29/2024 Chronic osteomyeliti s of right tibia with draining sinus (ICD-10 - M86.461) He was recently hospitalized and underwent further surgery to try to cure the osteomyelitis. He is currently on an antibiotic. His pain is mild. 05/02/2024 Peripheral arterial disease (ICD-10 - I73.9) 12/28/2023 Benign prostatic hyperplasia with lower urinary tract symptoms (ICD-10 - N40.1) The tamsulosin was continued today. He will notify me if his symptoms worsen. He has had no retention. He has symptoms of prostatism. 06/12/2024 Palmer's esophagus determined by endoscopy (ICD-10 - K22.70) He is due for an endoscopy and was referred back to his rubbing bed operator, Dr. Quinton Campos. 07/10/2024 Benign prostatic hyperplasia with lower urinary tract symptoms (ICD-10 - N40.1) The tamsulosin was continued today. He will notify me if his symptoms worsen. He has had no retention. He has symptoms of prostatism. 09/09/2024 Benign prostatic hyperplasia with lower urinary tract symptoms (ICD-10 - N40.1) The tamsulosin was continued today. He will notify me if his symptoms worsen. He has had no retention. He has symptoms of prostatism. 09/30/2024 Umbilical hernia without obstruction and without gangrene (ICD-10 - K42.9) This is asymptomatic and requires no treatment at this time. 10/29/2024 Peripheral arterial disease (ICD-10 - I73.9) He is seeing the vascular surgeon eebrock 2 weeks. 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 The plan is to fit him for a prosthesis. He denies any ulcers or claudication in the left leg. 12/28/2023 Palmer's esophagus determined by endoscopy (ICD-10 - K22.70) He is due for an endoscopy and was referred back to his rubbing bed operator, Dr. Quinton Campos. 06/12/2024 Chronic obstructive pulmonary disease, unspecified COPD type (ICD-10 - J44.9) He has resumed smoking 5 cigarettes per day. He was counseled about this and made aware of the smoking cessation programs in the area. 07/10/2024 Palmer's esophagus determined by endoscopy (ICD-10 - K22.70) He is due for an endoscopy and was referred back to his rubbing bed operator, Dr. Quinton Campos. 09/09/2024 Palmer's esophagus determined by endoscopy (ICD-10 - K22.70) He is due for an endoscopy and was referred back to his rubbing bed operator, Dr. Quinton Campos. 09/30/2024 Peripheral arterial disease (ICD-10 - I73.9) [...] endoscopy and was referred back to his rubbing bed operator, Dr. Quinton Campos. 12/28/2023 Hiatal hernia (ICD-1 0 - K44.9) [...] smoking cessation programs in the area. 09/09/2024 Chronic obstructive pulmonary disease, unspecified COPD type (ICD-10 - J44.9) He has resumed smoking 5 cigarettes per day. He was counseled about this and made aware of the smoking cessation programs in the area. 09/30/2024 Chronic obstructive pulmonary disease, unspecified COPD type (ICD-10 - J44.9) He has resumed smoking 5 cigarettes per day. He was counseled about this and made aware of the smoking cessation programs in the area. 10/29/2024 Chronic obstructive pulmonary disease, unspecified COPD type (ICD-10 - J44.9) He has resumed smoking 5 cigarettes per day. He was counseled about this and made aware of the smoking cessation programs in the area. 12/28/2023 Overweight (ICD-10 - E66.3) His body [...] been no further signs of thromboembolism. 09/09/2024 Splenic vein thrombosis (ICD-10 - I82.890) There have been no further signs of thromboembolism. 09/30/2024 Splenic vein thrombosis (ICD-10 - I82.890) There have been no further signs of thromboembolism. 10/29/2024 Hiatal hernia (ICD-1 0 - K44.9) The symptoms of his esophageal reflux and hiatal hernia well controlled with current medications. No change in his regimen as needed. 12/28/2023 Tobacco dependence (ICD-10 - F17.200) I [...] change in his regimen as needed. 09/09/2024 Hiatal hernia (ICD-1 0 - K44.9) The symptoms of his esophageal reflux and hiatal hernia well controlled with current medications. No change in his regimen as needed. 09/30/2024 Palmer's esophagus determined by endoscopy (ICD-10 - K22.70) He is due for an endoscopy and was referred back to his rubbing bed operator, Dr. Quinton Campos. 10/29/2024 Mixed hyperlipidemia (ICD-10 - E78.2) A comprehensive laboratory database with a fasting lipid profile will be obtained. He was continued on his currrent meddications. 12/28/2023 Mixed hyperlipidemia (ICD-10 - E78.2) A comprehensive laboratory database with a fasting lipid profile will be obtained. He was continued on his currrent meddications. 07/10/2024 Umbilical hernia without obstruction and without gangrene (ICD-10 - K42.9) This is asymptomatic and requires no treatment at this time. 09/09/2024 Hoarseness (ICD-10 - R49.0) He will be referred to ENT for indirect laryngoscopy. 09/30/2024 Tobacco dependence (ICD-10 - F17.200) I have counseled him about smoking cessation and offered to refer him to smoking cessation programs in the community. He said he would consider this and try to cut down. 07/10/2024 Tobacco dependence (ICD-10 - F17.200) I have counseled him about smoking cessation and offered to refer him to smoking cessation programs in the community. He said he would consider this and try to cut down. 09/09/2024 Peripheral arterial disease (ICD-10 - I73.9) [...] evaluate the open wound. Plan Of Treatment Pending Test Test Name Order Date PROFILE, FASTING (COMPREHENSIVE METABOLI C) 07/09/2019 PROFILE, FASTING (COMPREHENSIVE METABOLI C) 09/19/2019 LIPID PANEL 09/19/2019 LIPID PANEL 07/09/2019 LDH 09/19/2019 CPK 09/19/2019 CBC w DIFF 09/19/2019 CBC w DIFF 07/09/2019 NUC MYOCARDIAL PERF SPECT W MIBI 020 Echocardiogram 12/01/2019 Stress Test 12/01/2019 SARS COV2 RNA RT PCR 09/29/2019 SARS COV2 RNA RT PCR 04/13/2020 ECG 7 day holter monitor 09/09/2024 Next Appt Details Provider Name:Quinton Callahan, 12/02/2024 03:00:00 PM, [address] [place] [address] , [address], [place], [address], Insurance Providers Payer Name Payer Address Payer Phone Subscriber Number Group Number Insured Name Patient Relationship to Insured Coverage Start Date Coverage End Date [employer] [address] [place] [address] [id number] Zan Olivo Self - patient is the insured 4 MEDICARE NGS [address] [place] [address] [id number] Zan Olivo Self - patient is the [...] right leg Surgical History Surgery Date(Month/Year) Right exfrv-lxu-cpef amputation 4 arteriogram right lower extremity 05/2019 upper endoscopy, [facility], Dr. Quinton Campos, Palmer's esophagus 2014 upper endoscopy and colonosc opy, [facility], Dr. 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
--- OUTSIDE RECORDS SUMMARY | 2024-11-11 17:11 | XMS_ITS | Encounter Summary ---
Author Organization [facility] Address [address] [place] [address] [place] [address] Phone Care Team Providers Care Medical Laboratory Scientist Name Role Phone Quinton Callahan MD Primary Care Provider [phone]- [phone] Encounter Details Date Type Department Care Team (Late st Contact Info) Description 11/28/2023 Procedure [facility] [address] [place] [address] Social History Tobacco Use Types Packs/Day Years [...] on filedocumented in this encounter Care Teams Medical Laboratory Scientist Relationship Specialty Start Date End Date Quinton Callahan MD [address] [place] [address] PCP - General Medical Oncology 11/23/23 documented as of this encounter Additional Source Comments The information contained in this document represents components of the legal health record. It is not the complete legal health record.[facility]
--- OUTSIDE RECORDS SUMMARY | 2024-11-11 17:11 | XMS_ITS | Patient Health Record ---
Author Organization [facility] Address [address] [place] [address] Care Team Providers Care Ice Cream Dipper Name Role Phone Quinton Callahan MD Primary Care Provider Quinton Mao Unavailable [phone] Reason For Referral No Information Medications Medication [...] Problem Status W/U Status Risk Notes Problem [id number] Encounter for screening for malignant neoplasm of colon (Z12.11) Active confirmed Problem [id number] Palmer's esopha xu without dysplasia (K22.70) Active confirmed Problem [id number] Gastroesophageal reflux disease without esophagitis (K21.9) Active confirmed Plan Of Treatment Future Test Test Name Order Date UPPER GI ENDOSCOPY 03/19/2013 UPPER GI ENDOSCOPY 06/11/2019 COLONOSCOPY 06/11/2019 Next Appt Details Provider Name:Quinton Valle Campos , 02/04/2025 01:00:00 PM, [address] [place] [address], [address], [place], [address], Insurance Providers Payer Name Payer Address Payer Phone Subscriber Number Group Number Insured Name Patient Relationship to Insured Coverage Start Date Coverage End Date MEDICARE OF [place] [address] [place] [address] [id number] JUAN FRANCISCO HOWELL Self - patient is the insured Medical (General) History Medical History History ICD Code Colonoscopy in 12/2009 neg e xcept for a hyperplastic polyp, diverticulosis, and internal hemmorhoids GERD with a small area of Ba rrett's esophagus--EGD in 12/2009-small HH-bx neg for dysplasia Splenic vein thrombosis in approx 1999-- had previously been on Coumadin Denies KS,DM,CVA,renal disease EGD 04/2013 with small area o f Palmer's, no dysplasia nor esophagitis; small hiatal hernia COPD PVD with claudication as below Surgical History Surgery Date(Month/Year) 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 Knott 06/18/2019
--- OUTSIDE RECORDS SUMMARY | 2024-11-11 17:11 | XMS_ITS | Encounter Summary ---
Author Organization [facility] Address [address] [place] [address] [place] [address] Phone Care Team Providers Care Protection Analyst Name Role Phone Quinton Callahan MD Primary Care Provider +1- [phone] Encounter Details Date Type Department Care Team (Late st Contact Info) Description 11/28/2023 Procedure Pass [facility] [address] [place] [address] Social History Tobacco Use Types Packs/Day Years [...] on filedocumented in this encounter Care Teams Protection Analyst Relationship Specialty Start Date End Date Quinton Callahan MD [address] [place] [address] PCP - General Medical Oncology 11/23/23 documented as of this encounter Additional Source Comments The information contained in this document represents components of the legal health record. It is not the complete legal health record.[facility]
== END 2024-11-11 14:07 | disposition home or self-care (01) ==
LOC: HO.HVS 13:17
PROVIDERS: PCP Internal Medicine Medical Oncology; Visit Provider Surgery Vascular Surgery
DX: I73.9 Peripheral vascular disease, unspecified (principal)
CPT/HCPCS: 99024

== ENCOUNTER → 2024-11-11 13:17 | Outpatient (BNVA) | payer MEDICARE, SELFPAY | PROVIDERS: PCP Internal Medicine Medical Oncology; Visit Provider Surgery Vascular Surgery | DX: I73.9 Peripheral vascular disease, unspecified (principal); Z98.890 Other specified postprocedural states | CPT/HCPCS: 99212 ==

== ENCOUNTER → 2024-11-19 12:57 | Outpatient (REF) | payer MEDICARE, SELFPAY ==
--- OUTSIDE RECORDS SUMMARY | 2023-08-14 06:30 | XMS_ITS ---
Author Organization [facility] Address [address] [place] [address] Care Team Providers Care Filler Spreader Name Role Phone Quinton Callahan MD Primary Care Provider Unavailab Quinton Alvarez [phone] REASON FOR VISIT Patient presents today for EGD, NUGENT'S ESOPHAGUS Encounters Encounter Location Date Provider Diagnosis [facility] [address] [facility] [address] [place] [address] 08/14/2023 Quinton Campos Plan Of Treatment Next Appt Details Provider Name:Quinton Campos , 02/04/2025 01:00:00 PM, [address], [address], [place], [address], Progress Notes * ANGELA HERNANDEZOB:1960 (64 yo M)Acc No.[id number]:08/14/2023 Progress Notes Patient: JUAN FRANCISCO TONG Provider: Angeles Campos MD :1960 A ge:63 Y S ex:Male Date:08/14/2023 Address:[address] [place] [address] Pcp:Quinton Callahan MD Subjective: * Chief Complaints: [...] 08/14/2023 Generated for Tristen bustamante/Jai/Allysonitting on: 0 11/19/2024 03:23 PM EDT
--- OUTSIDE RECORDS SUMMARY | 2024-09-04 07:30 | XMS_ITS ---
Author Organization Quinton Callahan III, MD Address [address] [place] [address] [place] [address] Care Team Providers Care Custom Protection Officer Name Role Phone Dr. Quinton Callahan III Primary Care Provider REASON FOR VISIT update on pt condition Social History Sex Assigned At : Social History Observation Description Sex Assigned At Male Encounters Encounter Location Date Provider Diagnosis Quinton Callahan III, MD [address] [place] [address] [place] [address] 09/04/2024 Quinton Callahan Plan Of Treatment Next Appt Details Provider Name:Quinton Callahan , 12/02/2024 03:00:00 PM, [address] [place] [address] [address] [place], [place], [address], Progress Notes * Ana ENCINAShDOB:1960 (64 yo M)Acc No.[id number]:09/04/2024 Patient: Zan TONG :1960 A ge:64 Y S ex:Male Address:[address] [place] [address], [address], [place], [address] * true * Date: Generated for Printi ng/Faxing/eTransmitting on: 0 11/19/2024 03:23 PM EDT
--- OUTSIDE RECORDS SUMMARY | 2024-09-09 07:30 | XMS_ITS ---
Author Organization Quinton Callahan III, MD Address [address] [place] [address] [place] [address] Care Team Providers Care Catalytic Case Operator Name Role Phone Dr. Quinton Callahan [...] Provider Speciality Internal M edicine Referred Provider [facility] er, Cardiology Referred Provider Specialty Cardiology [...] in a message to Dr. Ferrer's medical supervisor to ask if the patient can be seen with the nurse practitioner. Stated they will contact the patient directly. Referral Priority Routine REASON FOR VISIT Right [...] Provider Diagnosis Quinton Callahan III, MD [address] [place] [address] [address] [place], [place] [address] 09/09/2024 Quinton Callahan Irregular heart rate I49.9 [...] endoscopy and was referred back to his industrial automation specialist, Dr. Quinton Campos. 09/09/2024 Chronic obstructive pulmonary [...] Irregular Heart Rate History of A-Fib, Cardiology [facility] Next Appt Details Follow Up: 3 Weeks, Reason: OV Provider Name:Quinton Callahan , 12/02/2024 03:00:00 PM, [address] [place] [address] [address] [place] [address], [place], [address], Progress Notes * Ana ENCINAShDOB:1960 (64 yo M)Acc No.[id number]:09/09/2024 Progress Notes Patient: Zan TONG Provider: Angeles Callahan MD :1960 A ge:64 Y S ex:Male Date:09/09/2024 Address:[address] [place], [place] [phone] Subjective: * Chief Complaints: * R ight [...] after dental work 1985upper endoscopy and colonoscopy, [facility], Dr. Quinton Campos 2009upper endoscopy, [facility], Dr. Quinton Campos, Palmer's esophagus 2014arteriogram right lower extremity 05/2019Right crysd-ldk-pbmb amputation 02-04-2024 * Hospitalization/Major Diagno stic Procedure: [...] healthy grandchildren. One of his siblings has Ptmwlgu-Dlhca-Qrktb disease. 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 He was born in [place], [place]. He came to [place] in 1984. He is with 6 children. He has 11 grandchildren. He is a of [employer]. He trained at [employer] and served in [employer]. * Medications: T akingMetoprolol Succinate ER 25 [...] 2 tablets by mouth once daily DiscontinuedNystatin 431815 UNIT/GM Powder 1 application Externally Twice a [...] reviewed and reconciled with the patientDiscontinued Nystatin 966923 UNIT/GM Powder 1 application Externally Twice a [...] endoscopy and was referred back to his industrial automation specialist, Dr. Quinton Campos. 5 . C hronic [...] otes :He is seeing the vascular surgeon rita [...] * Treatment: 2. O thers Referral To:Cardiology [facility] Cardiology Reason:Evaluate and Treat Irregular Heart [...] true * Provider: Angeles Callahan MD Date: 09/09/2024 Generated for Tristen bustamante/Jai/Allysonitting on: 0 11/19/2024 03:22 PM EDT History and Physical Notes * [...] Notes Referral Date Referring Provider Referred Provider Karin peterson 09/09/2024 Quinton Callahan [facility], Cardiology Evaluate and Treat Irregular Heart Rate History of A-Fib
--- OUTSIDE RECORDS SUMMARY | 2024-09-30 10:00 | XMS_ITS ---
Author Organization Quinton Callahan III, MD Address [address] [place] [address] [place] [address] Care Team Providers Care Green Building Materials Designer Name Role Phone Dr. Quinton Callahan III [...] Provider Specialty Urology General Notes Jolie Gonzalez [facility] 09/30 03:24:56 PM >I called Dr Flores office made patient an appt for 12/03/2024 at 2:45pm pt is established with Dr Flores so no records were sent . [facility] appt information was [...] Specialty Gastroentero logy General Notes Jolie Gonzalez [facility] 09/30 03:23:14 PM >Called Dr Campos [...] Date Provider Diagnosis Quinton Callahan III, MD [address] [place] [address] [address] [place], [place] [address] 09/30/2024 Quinton Callahan Chronic osteomyeliti s of [...] endoscopy and was referred back to his hose mender, Dr. Quinton Campos. 09/30/2024 Tobacco dependence (ICD-10 [...] 500 MG TAKE 1 CAPSULE BY [facility] TWICE DAILY Oral Albuterol Sulfate HFA [...] OV no tests Provider Name:Quinton Callahan , 12/02/2024 03:00:00 PM, [address] [place] [address], [place] [address], [place], [address], Progress Notes * ENCINASAna HEREDIAhDOB:1960 (64 yo M)Acc No.[id number]:09/30/2024 Progress Notes Patient: Zan TONG Provider: Angeles Callahan MD :1960 A ge:64 Y S ex:Male Date:09/30/2024 Address:[address] [place], [place] [id number] Subjective: * Chief Complaints: * R ecurrent [...] esophagus and was referred back to his hose mender today. He umbilical hernia is not symptomatic.? He continues to smoke 17 cigarettes a day and is reducing this number. He had a cyst removed from his back by the analytical research chemist. Questions H ave you had any new [...] after dental work 1985upper endoscopy and colonoscopy, [facility], Dr. Quinton Campos 2009upper endoscopy, [facility], Dr. Quinton Campos, Palmer's esophagus 2014arteriogram right lower extremity 05/2019Right waqgs-bgx-xjjk amputation 02-04-2024 * Hospitalization/Major Diagno stic Procedure: [...] healthy grandchildren. One of his siblings has Wtxrvit-Bxzqf-Masvd disease. 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 He was born in [place], [place]. He came to [place] in 1984. He is with 6 children. He has 11 grandchildren. He is a of [employer]. He trained at [employer] and served in [employer]. * Medications: T akingMetoprolol Succinate ER 25 [...] endoscopy and was referred back to his hose mender, Dr. Quinton Campos. 8 . T obacco [...] MD Date: 0 09/30/2024 Generated for Tristen bustamante/Jai/Allysonitting on: 0 11/19/2024 03:23 PM EDT History and Physical Notes * [...]
--- OUTSIDE RECORDS SUMMARY | 2024-10-15 13:00 | XMS_ITS ---
Author Organization Quinton Callahan III, MD Address [address] [place] [address] [place] [address] Care Team Providers Care Photo Technician Name Role Phone Dr. Quinton Callahan III Primary Care Provider REASON FOR VISIT Annual Exam Social History Sex Assigned At : Social History Observation Description Sex Assigned At Male Encounters Encounter Location Date Provider Diagnosis Quinton Callahan III, MD [address] [place] [address] [place] [address] 10/15/2024 Quinton Callahan Plan Of Treatment Next Appt Details Provider Name:Quinton Callahan , 12/02/2024 03:00:00 PM, [address] [place] [address] [place], [address], Progress Notes * Ana ENCINAShDOB:1960 (64 yo M)Acc No.[id number]:10/15/2024 Progress Notes Patient: Zan TONG Provider: Angeles Callahan MD :1960 A ge:64 Y S ex:Male Date:10/15/2024 Address:[address] [place] [address], [facility] [address] [id number] Subjective: * Chief Complaints: * 1 . [...] 10/15/2024 Generated for Tristen bustamante/Jai/Henrry on: 0 11/19/2024 03:23 PM EDT
--- OUTSIDE RECORDS SUMMARY | 2024-10-29 10:30 | XMS_ITS ---
Author Organization Quinton Callahan III, MD Address [address] [place] [address] [place] [address] Care Team Providers Care Child Protective Services Specialist Name Role Phone Dr. Quinton Callahan [...] Date Provider Diagnosis Quinton Callahan III, MD [address] [place] [address] [place] [address] 10/29/2024 Quinton Callahan Chronic osteomyeliti s of [...] endoscopy and was referred back to his commercial loan underwriter, Dr. Quinton Campos. 10/29/2024 Chronic obstructive pulmonary [...] Annual Exam, OV Provider Name:Quinton Callahan , 12/02/2024 03:00:00 PM, [address] [place] [address], [address], Progress Notes * ENCINASAna HEREDIAhDOB:1960 (64 yo M)Acc No.[id number]:10/29/2024 Patient: Zan TONG Provider: Angeles Callahan MD :1960 A ge:64 Y S ex:Male Date:10/29/2024 Address:[address] [place] [address], [phone] Subjective: * Chief Complaints: * R [...] after dental work 1985upper endoscopy and colonoscopy, [facility], Dr. Quinton Campos 2009upper endoscopy, [facility], Dr. Quinton Campos, Palmer's esophagus 2014arteriogram right lower extremity 05/2019Right jwtxl-sml-ugie amputation 02-04-2024 * Hospitalization/Major Diagno stic Procedure: [...] healthy grandchildren. One of his siblings has Wyfytib-Pgpmm-Ecwvk disease. 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 He was born in [place], [place]. He came to [place] in 1984. He is with 6 children. He has 11 grandchildren. He is a of [employer]. He trained at [place] [employer] and served in [email or web address]. * Medications: T akingAtorvastatin Calcium 10 MG [...] endoscopy and was referred back to his commercial loan underwriter, Dr. Quinton Campos. 5 . C hronic [...] true * Provider: Angeles Callahan MD Date: 10/29/2024 Generated for Montanai robby/Jai/eTransmitting on: 0 11/19/2024 03:23 PM EDT History [...]
--- NOTE | 2024-11-19 | HM_ITS ---
Conclusion: 1. Patient was monitored for total period of 6 days and 23 hours 2. Baseline was normal sinus rhythm with average heart of 62 beats per minute 3. Frequent PACs noted with total burden of 26.3% with frequent short runs of SVE, longest lasting 38 beats at 155 beats per minute consistent with SVT 4. No significant pauses noted 5. No patient reported events MTDD
--- OUTSIDE RECORDS SUMMARY | 2024-11-19 15:23 | XMS_ITS | Encounter Summary ---
Author Organization [facility] Address [address] [place] [address] [place] [address] Phone Care Team Providers Care Licensed Insurance Agent Name Role Phone Quinton Callahan MD Primary Care Provider +1- [phone] Encounter Details Date Type Department Care Team (Late st Contact Info) Description 11/28/2023 Procedure Pass [facility] [address] [place] [address] Social History Tobacco Use Types Packs/Day Years [...] on filedocumented in this encounter Care Teams Licensed Insurance Agent Relationship Specialty Start Date End Date Quinton Callahan MD PCP - General Medical Oncology 11/23/23 documented as of this encounter Additional Source Comments The information contained in this document represents components of the legal health record. It is not the complete legal health record.[facility]
--- OUTSIDE RECORDS SUMMARY | 2024-11-19 15:23 | XMS_ITS | Encounter Summary ---
Author Organization [facility] Address [address] [place] [address] [place] [phone] Phone Care Team Providers Care Foreign Collection Clerk Name Role Phone Quinton Callahan MD Primary Care Provider [phone]- [phone] Encounter Details Date Type Department Care Team (Late st Contact Info) Description 11/28/2023 Procedure [facility] [address] [place] [address] Social History Tobacco Use Types Packs/Day Years [...] on filedocumented in this encounter Care Teams Foreign Collection Clerk Relationship Specialty Start Date End Date Quinton Callahan MD PCP - General Medical Oncology 11/23/23 documented as of this encounter Additional Source Comments The information contained in this document represents components of the legal health record. It is not the complete legal health record.[facility]
--- OUTSIDE RECORDS SUMMARY | 2024-11-19 15:23 | XMS_ITS | Patient Health Record ---
Author Organization [facility] Address [address] [place] [address] Care Team Providers Care Operations Analyst Name Role Phone Quinton Callahan MD Primary Care Provider Quinton Mao Unavailable [phone] Reason For Referral No Information Medications Medication [...] Problem Status W/U Status Risk Notes Problem [id number] Encounter for screening for malignant neoplasm of colon (Z12.11) Active confirmed Problem [id number] Palmer's esopha xu without dysplasia (K22.70) Active confirmed Problem [id number] Gastroesophageal reflux disease without esophagitis (K21.9) Active confirmed Plan Of Treatment Future Test Test Name Order Date UPPER GI ENDOSCOPY 03/19/2013 UPPER GI ENDOSCOPY 06/11/2019 COLONOSCOPY 06/11/2019 Next Appt Details Provider Name:Quinton Valle Campos , 02/04/2025 01:00:00 PM, [address] [place] [address], [address], [place], [address], Insurance Providers Payer Name Payer Address Payer Phone Subscriber Number Group Number Insured Name Patient Relationship to Insured Coverage Start Date Coverage End Date MEDICARE OF [place] [address] [facility] [address] [id number] JUAN FRANCISCO HOWELL Self - patient is the insured Medical (General) History Medical History History ICD Code Colonoscopy in 12/2009 neg e xcept for a hyperplastic polyp, diverticulosis, and internal hemmorhoids GERD with a small area of Ba rrett's esophagus--EGD in 12/2009-small HH-bx neg for dysplasia Splenic vein thrombosis in approx 1999-- had previously been on Coumadin Denies ND,DM,CVA,renal disease EGD 04/2013 with small area o f Palmer's, no dysplasia nor esophagitis; small hiatal hernia COPD PVD with claudication as below Surgical History Surgery Date(Month/Year) 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 Knott 06/18/2019
--- OUTSIDE RECORDS SUMMARY | 2024-11-19 15:23 | XMS_ITS | Patient Health Record ---
Author Organization Quinton Callahan III, MD Address [address] [place] [address] Care Team Providers Care Director [employer] Name Role Phone Dr. Quinton Callahan III Primary Care Provider [phone] Allergies Allergen (clinical drug ingredient) Drug/Non Drug Allergy documented on EMR Reaction Allergy Type Onset Date Status No Known Drug Allergy Unknown Drug Allergy Active Results Component Value Reference Range Notes Cancelled Chem Reviewed date:01/07/2024 01:28:15 PM Interpretation: Performing Lab:[facility], [address] [place] [address] Notes/Report: Cancelled Chem SEE NOTE NO SPECIMEN R ECEIVED FOR BUN AND CREAT US arterial duplex LE RT Reviewed date:01/24/2024 07:41:27 AM Interpretation: Performing Lab: Notes/Report: [address] [address] Ultrasound Report Signed Patient: Zan Encinas MR#: [id number] : 1960 Acct:[id number] Age/Sex: 63 / M ADM Date: 01/01/24 Loc: HO.US Attending Dr: Bimal Knott MD Ordering Physician: Sera Saxena PA-C Date of Service: 01/01/24 Procedure(s): US arterial duplex LE RT Accession Number(s): [id number] cc: Quinton Callahan MD; Sera Saxena PA-C [...] by: Coleman Chaidez MD 01/23/2024 01:03 PM [facility] Dictated By: Coleman Chaidez MD Signed By: <Electronically signed by Coleman Chaidez MD in OV> 01/23/24 1303 DD/ 1430 TD/TT: 01/01/24 1517 Watch Hairspring Assembler: [place] [id number] Ultrasound Report Signed Patient: Zan Encinas MR#: [id number] : 1960 Acct:[id number] Age/Sex: 63 / M ADM Date: 01/01/24 Loc: HO.US Attending Dr: Bimal Knott MD Ordering Physician: Sera Saxena PA-C Date of Service: 01/01/24 Procedure(s): US arterial duplex LE RT Accession Number(s): [id number] cc: Quinton Callahan MD; Sera Saxena PA-C [...] by: Coleman Chaidez MD 01/23/2024 01:03 PM [facility] Dictated By: Coleman Chaidez MD Signed By: <Electronically signed by Coleman Chaidez MD in OV> 01/23/24 1303 DD/ 1430 TD/TT: 01/01/24 1517 Watch Hairspring Assembler: Complete Blood Count Auto Di ff Reviewed date:01/07/2024 01:28:15 PM Interpretation: Performing Lab:[facility], [address] [place] [address] Notes/Report: White Blood Count 8.2 4.8-10.8 X10*3/uL [...] Drip Reviewed date:01/08/2024 08:33:39 AM Interpretation: Performing Lab:[facility], [address] [place] [address] Notes/Report: PTT Heparin Drip 33.9 53-77.9 SEC For information regarding the monitoring of heparin therapy, please refer to Pharmacy. Fibrinogen Reviewed date:01/08/2024 08:33:39 AM Interpretation: Performing Lab:[facility], [address] [place] [address] Notes/Report: Fibrinogen 465 259-690 MG/DL Blood Urea Nitrogen Reviewed date:01/07/2024 01:28:15 PM Interpretation: Performing Lab:[facility], [address] [place] [phone] Notes/Report: Blood Urea Nitrogen 16 9-16 mg/dL Creatinine Reviewed date:01/07/2024 01:28:15 PM Interpretation: Performing Lab:[address] [address] Notes/Report: Creatinine 0.81 0.5-1.4 mg/dL Creatinine Clr Calc Pharmacy 99.7 eGFR (calculated from the MDRD study equation) and eCrCl (calculated from the Cockcroft-Gault equation) are based on different parameters and may not yield comparable results. If eCrCl result is absurd, please check patient's height/weight. Estimated Glomerular Filt Rate > 60 NOTE: For -[place] Islander individuals, multiply the result by 1.210. Chronic Kidney Disease: Estimated GFR < 60 mL/min/1.73m2 Severe Kidney Disease: Estimated GFR < 15 mL/min/1.73m2 ACT LR Reviewed date:01/16/2024 08:51:12 AM Interpretation: Performing Lab:[address] [address] Notes/Report: out of range low [id number] HO.MARUSA 0906 HO.MULVEC Fibrinogen Reviewed date:01/08/2024 08:33:39 AM Interpretation: Performing Lab:[address] [address] Notes/Report: Fibrinogen 445 259-690 MG/DL Complete Blood Count no Diff Reviewed date:01/10/2024 09:47:57 AM Interpretation: Performing Lab:[address] [address] Notes/Report: White Blood Count 28.7 4.8-10.8 X10*3/uL [...] ff Reviewed date:01/08/2024 08:33:39 AM Interpretation: Performing Lab:[facility], [address] [place] [address] Notes/Report: White Blood Count 10.1 4.8-10.8 X10*3/uL [...] gy Reviewed date:01/08/2024 02:05:08 PM Interpretation: Performing Lab:[facility], [address] [place] [address] Notes/Report: Hold Lav - Possible Hematology SEE NOTE Specimen will be held untested for 8 hours. Call Hematology if testing is desired. PTT Heparin Drip Reviewed date:01/08/2024 08:33:39 AM Interpretation: Performing Lab:[facility], [address] [place] [address] Notes/Report: PTT Heparin Drip 40.9 53-77.9 SEC For information regarding the monitoring of heparin therapy, please refer to Pharmacy. Fibrinogen Reviewed date:01/08/2024 08:33:39 AM Interpretation: Performing Lab:[facility], [address] [place] [address] Notes/Report: Fibrinogen 432 259-690 MG/DL Basic Metabolic Panel Reviewed date:01/08/2024 08:33:39 AM Interpretation: Performing Lab:[address] [address] Notes/Report: Sodium 138 135-145 mmol/L Potassium 3.8 [...] Phosphorus Reviewed date:01/08/2024 08:33:39 AM Interpretation: Performing Lab:[facility], [address] [place] [address] Notes/Report: Phosphorus 2.9 2.7-4.5 mg/dL Magnesium Reviewed date:01/08/2024 08:33:39 AM Interpretation: Performing Lab:[facility], [address] [place] [address] Notes/Report: Magnesium 1.8 1.6-2.6 mg/dL Albumin Level Reviewed date:01/08/2024 08:33:39 AM Interpretation: Performing Lab:[facility], [address] [place] [address] Notes/Report: Albumin Level 3.2 3.5-5.0 g/dL ACT LR Reviewed date:01/11/2024 01:49:27 PM Interpretation: Performing Lab:[address] [address] Notes/Report: 109 [id number] HO.MARUSA 0846 HO.MULVEC ACT 109 79-173 Celite s Results are converted to a reference Celite ACT value in seconds. A reference interval is unavailable for ACT. Kathy Flores Reviewed date:01/08/2024 02:05:08 PM Interpretation: Performing Lab:[facility], [address] [place] [address] Notes/Report: Kathy Flores See Note Specimen held untested for 24 hours; Call to request Chemistry testing. SLIDE REVIEW Reviewed date:01/08/2024 02:05:08 PM Interpretation: Performing Lab:[facility], [address] [place] [address] Notes/Report: SLIDE REVIEW VERIFIED Type and Screen Reviewed date:01/11/2024 01:49:26 PM Interpretation: Performing Lab:[facility], [address] [place] [address], [place] [address] Notes/Report: Results at Issue Units as of [...] g/dl 01/09/241947 HGB 7.7 L 14.0-18.0 g/dl 01/10/240 HCT PENDING RECEIPT 42.0-52.0 % 01/09/241947 HCT [...] 01/11/24 0500 HGB PENDING RECEIPT 14.0-18.0 g/dl 01/11/24109 HGB [...] Cells Reviewed date:01/11/2024 01:49:26 PM Interpretation: Performing Lab:[facility], [address] [place] [address] Notes/Report: Red Blood Cells [id number] ON RC Red Blood Cells TRANSFUSED 01/09/24 0929 Red Blood Cells [id number] OP RC Red Blood Cells TRANSFUSED 01/09/24 1520 Red Blood Cells [id number] OP RC Red Blood Cells TRANSFUSED 01/10/24 0154 Red Blood Cells [id number] OP RC Red Blood Cells TRANSFUSED 01/10/24 1938 Red Blood Cells [id number] OP RC Red Blood Cells TRANSFUSED 01/10/242025 Red Blood Cells [id number] OP RC Red Blood Cells TRANSFUSED 01/10/24 2156 Red Blood Cells [id number] OP RC Red Blood Cells TRANSFUSED 01/10/242025 Red Blood Cells [id number] OP RC Red Blood Cells TRANSFUSED 01/11/24 0159 Red Blood Cells [id number] OP RC Red Blood Cells TRANSFUSED 01/11/24 0159 Arterial Blood Gases - POC Reviewed date:01/08/2024 02:05:08 PM Interpretation: Performing Lab:[facility], [address] [place] [address] Notes/Report: ABG pH 7.42 7.35-7.45 METER #: [id number] additional_comment: Cbgreavet ctrbpavlova ABG pCO2 34 32-45 mmHg METER #: [id number] additional_comment: Cbgreavet ctrbpavlova ABG pO2 95 83-108 mmHg METER #: [id number] additional_comment: Cbgreavet ctrbpavlova ABG Base Excess -1.2 METER #: [id number] additional_comment: Cbgreavet ctrbpavlova ABG HCO3 22 22-26 mmol/L METER #: [id number] additional_comment: Cbgreavet ctrbpavlova ABG O2 % Saturation 99.0 METER #: [id number] additional_comment: Cbgreavet ctrbpavlova Pheresis Platelets Reviewed date:01/11/2024 01:49:27 PM Interpretation: Performing Lab:[facility], [address] [place] [address] Notes/Report: Pheresis Platelets [id number] OP PHPLT Pheresis Platelets TRANSFUSED 01/11/24 0133 Hold Green Gel Reviewed date:01/08/2024 02:05:08 PM Interpretation: Performing Lab:[facility], [address] [place] [address] Notes/Report: Hold Green Gel See Note Specimen held untested for 24 hours; Call to request Chemistry testing. Fresh Frozen Plasma Reviewed date:01/11/2024 01:49:27 PM Interpretation: Performing Lab:[facility], [address] [place] [address] Notes/Report: Fresh Frozen Plasma [id number] AP FFP Fresh Frozen Plasma TRANSFUSED 01/11/24 0159 Fresh Frozen Plasma [id number] OP FFP Fresh Frozen Plasma TRANSFUSED 01/10/[address] abdomen pelvis w con Reviewed date:01/08/2024 02:05:08 PM Interpretation: Performing Lab: Notes/Report: [address] [place] [address] CT Scan Report Signed Patient: Zan Encinas MR#: [id number] : 1960 Acct:[id number] Age/Sex: 63 / M ADM Date: 01/07/24 Loc: .[facility] 255-[address]: Bimal Knott MD Ordering Physician: Sawyer Case MD Date of Service: 01/08/24 Procedure(s): CT abdomen pelvis w IV con Accession Number(s): [id number] cc: Quinton Callahan MD; Sawyer Case MD [...] right superficial femoral vein. There are likely [place] bypass femoral, bilaterally.. OSSEOUS STRUCTURES: Multilevel thoracolumbar [...] 01/08/24 1221 DD/ 1105 TD/TT: 01/08/24 1125 Watch Hairspring Assembler: [place] [address] CT Scan Report Signed Patient: Zan Encinas MR#: [id number] : 1960 Acct:[id number] Age/Sex: 63 / M ADM Date: 01/07/24 Loc: [facility] 255-[address]: Bimal Knott MD Ordering Physician: Sawyer Case MD Date of Service: 01/08/24 Procedure(s): CT abd omen pelvis w IV con Accession Number(s): [id number] cc: Quinton Callahan MD; Sawyer Case MD [...] right superficial femoral vein. There are likely [place] bypass femoral, bilaterally.. OSSEOUS STRUCTURES: Multilevel thoracolumbar [...] 01/08/24 1221 DD/ 1105 TD/TT: 01/08/24 1125 Watch Hairspring Assembler: Fibrinogen Reviewed date:01/08/2024 08:33:39 AM Interpretation: Performing Lab:[facility], [address] [place] [address] Notes/Report: Fibrinogen 441 259-690 MG/DL Complete Blood Count Auto Di ff Reviewed date:01/08/2024 02:05:08 PM Interpretation: Performing Lab:[facility], [address] [place] [address] Notes/Report: White Blood Count 20.0 4.8-10.8 X10*3/uL [...] Drip Reviewed date:01/08/2024 02:05:08 PM Interpretation: Performing Lab:[facility], [address] [place] [address] Notes/Report: PTT Heparin Drip > 200.0 53-77.9 SEC Results of PTT-HD called to and read back by MARIELA on 01/08/24 at 1155 by FROY. For information regarding the monitoring of heparin therapy, please refer to Pharmacy. Basic Metabolic Panel Reviewed date:01/10/2024 09:47:57 AM Interpretation: Performing Lab:[facility], [address] [place] [address] Notes/Report: Sodium 134 135-145 mmol/L Potassium 4.9 [...] Phosphorus Reviewed date:01/10/2024 09:47:57 AM Interpretation: Performing Lab:[facility], [address] [place] [address] Notes/Report: Phosphorus 4.1 2.7-4.5 mg/dL Magnesium Reviewed date:01/10/2024 09:47:57 AM Interpretation: Performing Lab:[facility], [address] [place] [address] Notes/Report: Magnesium 1.9 1.6-2.6 mg/dL Complete Blood Count Auto Di ff Reviewed date:01/10/2024 09:47:57 AM Interpretation: Performing Lab:[facility], [address] [place] [address] Notes/Report: White Blood Count 21.8 4.8-10.8 X10*3/uL [...] REVIEW Reviewed date:01/10/2024 09:47:57 AM Interpretation: Performing Lab:[facility], [address] [place] [phone] Notes/Report: SLIDE REVIEW VERIFIED ACT LR Reviewed date:01/11/2024 01:49:27 PM Interpretation: Performing Lab:[facility], [address] [place] [address] Notes/Report: 203 [id number] HO.GUILHERME 0855 mulvec ACT 203 79-173 Celite s Results are converted to a reference Celite ACT value in seconds. A reference interval is unavailable for ACT. Complete Blood Count Auto Di ff Reviewed date:01/10/2024 09:47:57 AM Interpretation: Performing Lab:[facility], [address] [place] [address] Notes/Report: White Blood Count 16.7 4.8-10.8 X10*3/uL [...] gy Reviewed date:01/10/2024 09:47:57 AM Interpretation: Performing Lab:[facility], [address] [place] [address] Notes/Report: Hold Lav - Possible Hematology SEE NOTE Specimen will be held untested for 8 hours. Call Hematology if testing is desired. Prothrombin Time INR Reviewed date:01/10/2024 09:47:57 AM Interpretation: Performing Lab:[facility], [address] [place] [address] Notes/Report: Prothrombin Time 11.5 10.9-12.4 SEC INTERNATIONAL [...] Drip Reviewed date:01/10/2024 09:47:57 AM Interpretation: Performing Lab:[facility], [address] [place] [phone] Notes/Report: PTT Heparin Drip 28.1 53-77.9 SEC For information regarding the monitoring of heparin therapy, please refer to Pharmacy. Basic Metabolic Panel Reviewed date:01/10/2024 09:47:57 AM Interpretation: Performing Lab:[address] [address] Notes/Report: Sodium 136 135-145 mmol/L Potassium 4.5 [...] Phosphorus Reviewed date:01/10/2024 09:47:57 AM Interpretation: Performing Lab:[facility], [address] [place] [address] Notes/Report: Phosphorus 4.0 2.7-4.5 mg/dL Magnesium Reviewed date:01/10/2024 09:47:57 AM Interpretation: Performing Lab:[facility], [address] [place] [address] Notes/Report: Magnesium 1.9 1.6-2.6 mg/dL Albumin Level Reviewed date:01/10/2024 09:47:57 AM Interpretation: Performing Lab:[facility], [address] [place] [address] Notes/Report: Albumin Level 3.2 3.5-5.0 g/dL SLIDE REVIEW Reviewed date:01/10/2024 09:47:57 AM Interpretation: Performing Lab:[facility], [address] [place] [address] Notes/Report: SLIDE REVIEW VERIFIED Complete Blood Count Auto Di ff Reviewed date:01/10/2024 09:47:57 AM Interpretation: Performing Lab:[facility], [address] [place] [address] Notes/Report: White Blood Count 10.8 4.8-10.8 X10*3/uL [...] Drip Reviewed date:01/10/2024 09:47:57 AM Interpretation: Performing Lab:[facility], [address] [place] [address] Notes/Report: PTT Heparin Drip 34.2 53-77.9 SEC For information regarding the monitoring of heparin therapy, please refer to Pharmacy. Complete Blood Count Auto Di ff Reviewed date:01/10/2024 09:47:57 AM Interpretation: Performing Lab:[facility], [address] [place] [address] Notes/Report: White Blood Count 8.4 4.8-10.8 X10*3/uL [...] Panel Reviewed date:01/10/2024 09:47:57 AM Interpretation: Performing Lab:[facility], [address] [place] [address] Notes/Report: Sodium 135 135-145 mmol/L Potassium 4.5 [...] Phosphorus Reviewed date:01/10/2024 09:47:57 AM Interpretation: Performing Lab:[facility], [address] [place] [address] Notes/Report: Phosphorus 3.0 2.7-4.5 mg/dL Magnesium Reviewed date:01/10/2024 09:47:57 AM Interpretation: Performing Lab:[facility], [address] [place] [address] Notes/Report: Magnesium 2.2 1.6-2.6 mg/dL PTT Heparin Drip Reviewed date:01/10/2024 09:47:57 AM Interpretation: Performing Lab:[facility], [address] [place] [address] Notes/Report: PTT Heparin Drip 55.2 53-77.9 SEC For information regarding the monitoring of heparin therapy, please refer to Pharmacy. Complete Blood Count Auto Di ff Reviewed date:01/10/2024 09:47:57 AM Interpretation: Performing Lab:[facility], [address] [place] [phone] Notes/Report: White Blood Count 9.2 4.8-10.8 X10*3/uL [...] Hematocrit Reviewed date:01/11/2024 01:49:27 PM Interpretation: Performing Lab:[facility], [address] [place] [address] Notes/Report: Hemoglobin 3.3 14.0-18.0 g/dl Results of HGB called to and read back by JONAS on 01/10/24 at 1959 by BORIS. Hematocrit 9.9 42.0-52.0 % Results of HCT called to and read back by JONAS on 01/10/24 at 2001 by BORIS. Pathologist Review - CBC Reviewed date:01/11/2024 01:49:26 PM Interpretation: Performing Lab:[facility], [address] [place] [address] Notes/Report: Pathologist Review - CBC SEE NOTE Normochromic normocytic anemia. - Javi Farias M.D. Pathology Prothrombin Time INR Reviewed date:01/10/2024 09:47:57 AM Interpretation: Performing Lab:[facility], [address] [place] [address] Notes/Report: Prothrombin Time 12.1 10.9-12.4 SEC INTERNATIONAL [...] Drip Reviewed date:01/10/2024 09:47:57 AM Interpretation: Performing Lab:[facility], [address] [place] [address] Notes/Report: PTT Heparin Drip 44.5 53-77.9 SEC For information regarding the monitoring of heparin therapy, please refer to Pharmacy. Comprehensive Met. Panel Reviewed date:01/11/2024 01:49:27 PM Interpretation: Performing Lab:[facility], [address] [place] [address] Notes/Report: Sodium 135 135-145 mmol/L Potassium 4.9 [...] Panel Reviewed date:01/10/2024 09:47:57 AM Interpretation: Performing Lab:[facility], [address] [place] [address] Notes/Report: Sodium 136 135-145 mmol/L Potassium 4.1 [...] Acid Reviewed date:01/11/2024 01:49:27 PM Interpretation: Performing Lab:[address] [address] Notes/Report: Lactic Acid 7.8 0.5-2.0 mmol/L Critical value for test(s): LACTA Results called to and read back by:VIKRAM Person calling: TANG Date:01-10-2024 Time:2121 Phosphorus Reviewed date:01/10/2024 09:47:57 AM Interpretation: Performing Lab:[facility], [address] [place] [address] Notes/Report: Phosphorus 2.8 2.7-4.5 mg/dL Magnesium Reviewed date:01/10/2024 09:47:57 AM Interpretation: Performing Lab:[facility], [address] [place] [address] Notes/Report: Magnesium 2.0 1.6-2.6 mg/dL Albumin Level Reviewed date:01/10/2024 09:47:57 AM Interpretation: Performing Lab:[address] [address] Notes/Report: Albumin Level 3.5 3.5-5.0 g/dL Lactic Acid-LAB USE ONLY Reviewed date:01/11/2024 01:49:27 PM Interpretation: Performing Lab:[facility], [address] [place] [address] Notes/Report: Lactic Acid-LAB USE ONLY 1.9 0.5-2.0 mmol/L Venous Blood Gases - POC Reviewed date:01/11/2024 01:49:27 PM Interpretation: Performing Lab:[facility], [address] [place] [address] Notes/Report: VBG pH 7.42 7.32-7.43 METER #: [id number] 0250C VBG pCO2 25 METER #: [id number] 0250C VBG pO2 76 METER #: [id number] 0250C VBG Base Excess -6.7 METER #: [id number] VBG HCO3 16 22-26 mmol/L METER #: [id number] 0250C VBG O2 % Saturation TNP Hold Green Gel Reviewed date:01/11/2024 01:49:27 PM Interpretation: Performing Lab:[facility], [address] [place] [address] Notes/Report: Hold Green Gel See Note Specimen held untested for 24 hours; Call to request Chemistry testing. CT abdomen pelvis w con Reviewed date:01/11/2024 01:49:27 PM Interpretation: Performing Lab: Notes/Report: [address] [address] [address] Scan Report Signed Patient: Zan Encinas MR#: [id number] : 1960 Acct:[id number] Age/Sex: 63 / M ADM Date: 01/07/24 Loc: [facility] 255-[address]: Bimal Knott MD Ordering Physician: Som Vela NP Date of Service: 01/10/24 Procedure(s): CT abdomen pelvis w IV con Accession Number(s): [id number] cc: Quinton Callahan MD; Som Vela NP [...] by: Jarret Ferrara MD 01/10/2024 10:00 PM [facility] Dictated By: Jarret Ferrara MD Signed By: <Electronically signed by Jarret Ferrara MD in OV> 01/10/242199 DD/ 21 TD/TT: 01/10/242021 Watch Hairspring Assembler: [place] [address] CT Scan Report Signed Patient: Zan Encinas MR#: [id number] : 1960 Acct:[id number] Age/Sex: 63 / M ADM Date: 01/07/24 Loc: .[facility] 255-[address]: Bimal Knott MD Ordering Physician: Som Vela NP Date of Service: 01/10/24 Procedure(s): CT abd omen pelvis w IV con Accession Number(s): [id number] cc: Quinton Callahan MD; Som Vela NP [...] by: Jarret Ferrara MD 01/10/2024 10:00 PM [facility] Dictated By: Jarret Ferrara MD Signed By: <Electronically signed by Jarret Ferrara MD in OV> 01/10/242199 DD/ 21 TD/TT: 01/10/242021 Watch Hairspring Assembler: PTT Heparin Drip Reviewed date:01/11/2024 01:49:27 PM Interpretation: Performing Lab:[facility], [address] [place] [address] Notes/Report: PTT Heparin Drip 80.2 53-77.9 SEC For information regarding the monitoring of heparin therapy, please refer to Pharmacy. PTT Heparin Drip Reviewed date:01/11/2024 01:49:27 PM Interpretation: Performing Lab:[facility], [address] [place] [address] Notes/Report: PTT Heparin Drip 66.0 53-77.9 SEC For information regarding the monitoring of heparin therapy, please refer to Pharmacy. Complete Blood Count Auto Di ff Reviewed date:01/11/2024 01:49:26 PM Interpretation: Performing Lab:[facility], [address] [place] [address] Notes/Report: White Blood Count 17.6 4.8-10.8 X10*3/uL [...] Diff Reviewed date:01/12/2024 07:43:31 AM Interpretation: Performing Lab:[facility], [address] [place] [address] Notes/Report: White Blood Count 12.3 4.8-10.8 X10*3/uL [...] ff Reviewed date:01/11/2024 01:49:26 PM Interpretation: Performing Lab:[facility], [address] [place] [address] Notes/Report: White Blood Count 18.2 4.8-10.8 X10*3/uL [...] Panel Reviewed date:01/11/2024 01:49:26 PM Interpretation: Performing Lab:[facility], [address] [place] [phone] Notes/Report: Sodium 135 135-145 mmol/L Potassium 4.6 [...] Phosphorus Reviewed date:01/11/2024 01:49:26 PM Interpretation: Performing Lab:[facility], [address] [place] [phone] Notes/Report: Phosphorus 4.3 2.7-4.5 mg/dL Magnesium Reviewed date:01/11/2024 01:49:26 PM Interpretation: Performing Lab:[facility], [address] [place] [phone] Notes/Report: Magnesium 2.2 1.6-2.6 mg/dL Albumin Level Reviewed date:01/11/2024 01:49:26 PM Interpretation: Performing Lab:[facility], [address] [place] [phone] Notes/Report: Albumin Level 3.6 3.5-5.0 g/dL SLIDE REVIEW Reviewed date:01/11/2024 01:49:26 PM Interpretation: Performing Lab:[facility], [address] [place] [address] Notes/Report: SLIDE REVIEW VERIFIED Venous Blood Gases - POC Reviewed date:01/11/2024 01:49:26 PM Interpretation: Performing Lab:[facility], [address] [place] [address] Notes/Report: VBG pH 7.49 7.32-7.43 METER #: [id number] additional_comment: Jeovany southrimichaela VBG pCO2 35 METER #: [id number] additional_comment: Jeovany rubioyady elva henrimichaela VBG pO2 57 METER #: [id number] additional_comment: Cb crochia ctrbb henriquezc VBG Base Excess 4.0 METER #: [id number] additional_comment: Jeovany stevenson henriquezc VBG HCO3 27 22-26 mmol/L METER #: [id number] additional_comment: Jeovany aguilarbb henriquezc VBG O2 % Saturation 92.0 METER #: [id number] additional_comment: Jeovany stevenson henriquezc Venous Blood Gases - POC Reviewed date:01/11/2024 01:49:26 PM Interpretation: Performing Lab:[address] [address] Notes/Report: VBG pH 7.42 7.32-7.43 METER #: [id number] additional_comment: Jeovany aguilarbb henriquezc VBG pCO2 42 METER #: [id number] additional_comment: Jeovany stevenson henriquezc VBG pO2 35 METER #: [id number] additional_comment: Jeovany aguilarbb henriquezc VBG Base Excess 3.7 METER #: [id number] additional_comment: Jeovany stevenson henriquezc VBG HCO3 28 22-26 mmol/L METER #: [id number] additional_comment: Jeovany aguilarbb henriquezc VBG O2 % Saturation 62.0 METER #: [id number] additional_comment: Jeovany aguilarbb henriquezc Complete Blood Count Auto Di ff Reviewed date:01/11/2024 01:49:26 PM Interpretation: Performing Lab:[address] [address] Notes/Report: White Blood Count 14.9 4.8-10.8 X10*3/uL [...] ff Reviewed date:01/11/2024 08:19:34 PM Interpretation: Performing Lab:[facility], [address] [place] [address] Notes/Report: White Blood Count 14.3 4.8-10.8 X10*3/uL [...] REVIEW Reviewed date:01/11/2024 08:19:34 PM Interpretation: Performing Lab:[facility], [address] [place] [phone] Notes/Report: SLIDE REVIEW VERIFIED Basic Metabolic Panel Reviewed date:01/12/2024 07:43:31 AM Interpretation: Performing Lab:[address] [address] Notes/Report: Sodium 133 135-145 mmol/L Potassium 4.0 [...] Phosphorus Reviewed date:01/12/2024 07:43:31 AM Interpretation: Performing Lab:[facility], [address] [place] [address] Notes/Report: Phosphorus 2.7 2.7-4.5 mg/dL Magnesium Reviewed date:01/12/2024 07:43:31 AM Interpretation: Performing Lab:[facility], [address] [place] [address] Notes/Report: Magnesium 2.4 1.6-2.6 mg/dL Complete Blood Count no Diff Reviewed date:01/13/2024 07:58:52 PM Interpretation: Performing Lab:[facility], [address] [place] [address] Notes/Report: White Blood Count 11.9 4.8-10.8 X10*3/uL [...] ff Reviewed date:01/12/2024 07:43:31 AM Interpretation: Performing Lab:[facility], [address] [place] [phone] Notes/Report: White Blood Count 11.0 4.8-10.8 X10*3/uL [...] Panel Reviewed date:01/12/2024 07:43:31 AM Interpretation: Performing Lab:[facility], [address] [place] [address] Notes/Report: Sodium 139 135-145 mmol/L Potassium 3.9 [...] Phosphorus Reviewed date:01/12/2024 07:43:31 AM Interpretation: Performing Lab:[facility], [address] [place] [address] Notes/Report: Phosphorus 2.8 2.7-4.5 mg/dL Magnesium Reviewed date:01/12/2024 07:43:31 AM Interpretation: Performing Lab:[facility], [address] [place] [address] Notes/Report: Magnesium 2.3 1.6-2.6 mg/dL SLIDE REVIEW Reviewed date:01/12/2024 07:43:31 AM Interpretation: Performing Lab:[facility], [address] [place] [address] Notes/Report: SLIDE REVIEW VERIFIED Venous Blood Gases - POC Reviewed date:01/12/2024 07:43:31 AM Interpretation: Performing Lab:[facility], [address] [place] [address] Notes/Report: VBG pH 7.41 7.32-7.43 METER #: [id number] additional_comment: Jeovany stevenson henric VBG pCO2 47 METER #: [id number] additional_comment: Jeovany aguilarbb henric VBG pO2 34 METER #: [id number] additional_comment: eJovany aguilarbb henric VBG Base Excess 5.9 METER #: [id number] additional_comment: Jeovany aguilarbb henric VBG HCO3 31 22-26 mmol/L METER #: [id number] additional_comment: Jeovany aguilarbb henric VBG O2 % Saturation 56.0 METER #: [id number] additional_comment: Jeovany stevenson henric Complete Blood Count Auto Di ff Reviewed date:01/12/2024 07:43:31 AM Interpretation: Performing Lab:[facility], [address] [place] [address] Notes/Report: White Blood Count 10.7 4.8-10.8 X10*3/uL [...] ff Reviewed date:01/13/2024 07:58:52 PM Interpretation: Performing Lab:[facility], [address] [place] [address] Notes/Report: White Blood Count 11.2 4.8-10.8 X10*3/uL [...] Diff Reviewed date:01/13/2024 07:58:52 PM Interpretation: Performing Lab:[facility], [address] [place] [address] Notes/Report: White Blood Count 12.6 4.8-10.8 X10*3/uL [...] ff Reviewed date:01/13/2024 07:58:52 PM Interpretation: Performing Lab:[facility], [address] [place] [address] Notes/Report: White Blood Count 11.1 4.8-10.8 X10*3/uL [...] Panel Reviewed date:01/13/2024 07:58:52 PM Interpretation: Performing Lab:[facility], [address] [place] [address] Notes/Report: Sodium 137 135-145 mmol/L Potassium 3.8 [...] Phosphorus Reviewed date:01/13/2024 07:58:52 PM Interpretation: Performing Lab:[facility], [address] [place] [address] Notes/Report: Phosphorus 3.0 2.7-4.5 mg/dL Magnesium Reviewed date:01/13/2024 07:58:52 PM Interpretation: Performing Lab:[facility], [address] [place] [address] Notes/Report: Magnesium 2.3 1.6-2.6 mg/dL Albumin Level Reviewed date:01/13/2024 07:58:52 PM Interpretation: Performing Lab:[facility], [address] [place] [address] Notes/Report: Albumin Level 3.5 3.5-5.0 g/dL SLIDE REVIEW Reviewed date:01/13/2024 07:58:52 PM Interpretation: Performing Lab:[facility], [address] [place] [address] Notes/Report: SLIDE REVIEW VERIFIED Venous Blood Gases - POC Reviewed date:01/13/2024 07:58:52 PM Interpretation: Performing Lab:[facility], [address] [place] [address] Notes/Report: VBG pH 7.46 7.32-7.43 METER #: [id number] additional_comment: Jeovany martinez ctrbb henric VBG pCO2 37 METER #: [id number] additional_comment: Jeovany martinez ctrbb henric VBG pO2 55 METER #: [id number] additional_comment: Jeovany martinez ctrbb henric VBG Base Excess 3.2 METER #: [id number] additional_comment: Jeovany martinez ctrbb henric VBG HCO3 27 22-26 mmol/L METER #: [id number] additional_comment: Jeovany martinez ctrbb henric VBG O2 % Saturation 87.0 METER #: [id number] additional_comment: Jeovany martinez ctrbb henric Complete Blood Count Auto Di ff Reviewed date:01/13/2024 07:58:52 PM Interpretation: Performing Lab:[facility], [address] [place] [phone] Notes/Report: White Blood Count 12.6 4.8-10.8 X10*3/uL [...] ff Reviewed date:01/15/2024 06:02:02 AM Interpretation: Performing Lab:[facility], [address] [place] [address] Notes/Report: White Blood Count 13.1 4.8-10.8 X10*3/uL [...] ff Reviewed date:01/15/2024 06:02:02 AM Interpretation: Performing Lab:[facility], [address] [place] [address] Notes/Report: White Blood Count 12.1 4.8-10.8 X10*3/uL [...] Hematocrit Reviewed date:01/15/2024 06:02:02 AM Interpretation: Performing Lab:[facility], [address] [place] [address] Notes/Report: Hemoglobin 7.9 14.0-18.0 g/dl Hematocrit 23.5 42.0-52.0 % Basic Metabolic Panel Reviewed date:01/15/2024 06:02:02 AM Interpretation: Performing Lab:[facility], [address] [place] [address] Notes/Report: Sodium 136 135-145 mmol/L Potassium 3.8 [...] Phosphorus Reviewed date:01/15/2024 06:02:02 AM Interpretation: Performing Lab:[facility], [address] [place] [address] Notes/Report: Phosphorus 2.8 2.7-4.5 mg/dL Magnesium Reviewed date:01/15/2024 06:02:02 AM Interpretation: Performing Lab:[facility], [address] [place] [address] Notes/Report: Magnesium 2.2 1.6-2.6 mg/dL Albumin Level Reviewed date:01/15/2024 06:02:02 AM Interpretation: Performing Lab:[facility], [address] [place] [address] Notes/Report: Albumin Level 3.4 3.5-5.0 g/dL SLIDE REVIEW Reviewed date:01/15/2024 06:02:02 AM Interpretation: Performing Lab:[facility], [address] [place] [address] Notes/Report: SLIDE REVIEW VERIFIED Complete Blood Count no Diff Reviewed date:01/16/2024 08:51:12 AM Interpretation: Performing Lab:[facility], [address] [place] [address] Notes/Report: White Blood Count 12.7 4.8-10.8 X10*3/uL [...] Diff Reviewed date:01/16/2024 08:51:12 AM Interpretation: Performing Lab:[facility], [address] [place] [address] Notes/Report: White Blood Count 9.9 4.8-10.8 X10*3/uL [...] Panel Reviewed date:01/17/2024 05:05:01 AM Interpretation: Performing Lab:[address] [address] Notes/Report: Sodium 135 135-145 mmol/L Potassium 4.2 [...] Magnesium Reviewed date:01/17/2024 05:05:01 AM Interpretation: Performing Lab:[facility], [address] [place] [address] Notes/Report: Magnesium 2.3 1.6-2.6 mg/dL Complete Blood Count Auto Di ff Reviewed date:01/18/2024 08:33:04 PM Interpretation: Performing Lab:[address] [address] Notes/Report: White Blood Count 12.0 4.8-10.8 X10*3/uL [...] te Reviewed date:01/18/2024 08:33:04 PM Interpretation: Performing Lab:[address] [address] Notes/Report: Erythrocyte Sedimentation Rate 92 0-15 MM/HR Patients with polycythemia and many hemoglobin abnormalities may have depressed sed rates whereas patients with anemia may have elevated sed rates. Prothrombin Time INR Reviewed date:01/18/2024 08:33:04 PM Interpretation: Performing Lab:[address] [address] Notes/Report: Prothrombin Time 13.4 10.9-12.4 SEC INTERNATIONAL [...] Panel Reviewed date:01/18/2024 08:33:04 PM Interpretation: Performing Lab:[facility], [address] [place] [address] Notes/Report: Sodium 134 135-145 mmol/L Potassium 4.2 [...] Acid Reviewed date:01/18/2024 08:33:04 PM Interpretation: Performing Lab:[facility], [address] [place] [address] Notes/Report: Lactic Acid 1.3 0.5-2.0 mmol/L C Reactive Protein Reviewed date:01/18/2024 08:33:04 PM Interpretation: Performing Lab:[facility], [address] [place] [address] Notes/Report: C Reactive Protein 14.10 < or = 0.50 mg/dL Lipase Reviewed date:01/18/2024 08:33:04 PM Interpretation: Performing Lab:[facility], [address] [place] [address] Notes/Report: Lipase 24 8-78 U/L SLIDE REVIEW Reviewed date:01/18/2024 08:33:04 PM Interpretation: Performing Lab:[facility], [address] [place] [address] Notes/Report: SLIDE REVIEW VERIFIED Blood Culture (First) Reviewed date:01/24/2024 07:41:27 AM Interpretation: Performing Lab:[facility], [address] [place] [address] Notes/Report: Blood Culture (First) No growth after 5 days. Blood Culture (Second) Reviewed date:01/24/2024 07:41:27 AM Interpretation: Performing Lab:[facility], [address] [place] [address] Notes/Report: Blood Culture (Second) No growth after 5 days. US arterial duplex LE RT Reviewed date:01/21/2024 07:35:28 AM Interpretation: Performing Lab: Notes/Report: [address] [address] Ultrasound Report Signed with Addenda Patient: Zan Encinas MR#: [id number] : 1960 Acct:[id number] Age/Sex: 63 / M ADM Date: 01/18/24 Loc: .ED Attending Dr: Ordering Physician: Yuriy Dunbar Date of Service: 01/18/24 Procedure(s): US arterial duplex LE RT Accession Number(s): [id number] cc: Quinton Callahan MD; Yuriy Dunbar ADDENDUM ADDENDUM #1 Findings were communicated by telephone with Dr. Gerard by Dr. Zarate at 2034 hours. Electronically signed by: Placido Zarate MD 01/18/2024 08:41 PM [facility] Addendum Dictated By: Yuriy Zarate MD Addendum [...] by: Placido Zarate MD 01/18/2024 08:33 PM [facility] Dictated By: Yuriy Zarate MD Signed By: <Electronically signed by Yuriy Zarate MD in OV> 01/18/242032 DD/ 02 TD/TT: 01/18/241505 Watch Hairspring Assembler: BLANCA [place] [address] Ultrasound Report Signed with Addenda Patient: Zan Encinas MR#: [id number] : 1960 Acct:[id number] Age/Sex: 63 / M ADM Date: 01/18/24 Loc: .ED Attending Dr: Ordering Physician: Yuriy Dunbar Date of Service: 01/18/24 Procedure(s): US arterial duplex LE RT Accession Number(s): [id number] cc: Quinton Callahan MD; Yuriy Dunbar ADDENDUM [...] in OV> 01/18/242032 DD/ 02 TD/TT: 01/18/241505 Watch Hairspring Assembler: BLANCA XR foot RT min 3V Reviewed date:01/18/2024 08:33:04 PM Interpretation: Performing Lab: Notes/Report: [address] [address] XRay Report Signed Patient: Zan Encinas MR#: [id number] : 1960 Acct:[id number] Age/Sex: 63 / M ADM Date: 01/18/24 Loc: .ED Attending Dr: Ordering Physician: Yuriy Dunbar Date of Service: 01/18/24 Procedure(s): XR foot RT min 3V Accession Number(s): [id number] cc: Quinton Callahan MD; Yuriy Dunbar EXAMINATION: [...] by: Kaushal Cohen MD 01/18/2024 04:19 PM [facility] Dictated By: Kaushal Cohen MD Signed By: <Electronically signed by Kaushal Cohen MD in OV> 01/18/24 1619 DD/ 1516 TD/TT: 01/18/24 1534 Watch Hairspring Assembler: MICHELA [place] [address] XRay Report Signed Patient: Zan Encinas MR#: [id number] : 1960 Acct:[id number] Age/Sex: 63 / M ADM Date: 01/18/24 Loc: .ED Attending Dr: Ordering Physician: Yuriy Dunbar Date of Service: 01/18/24 Procedure(s): XR chito t RT min 3V Accession Number(s): [id number] cc: Quinton Callahan MD; Yuriy Dunbar EXAMINATION: [...] by: Kaushal Cohen MD 01/18/2024 04:19 PM [facility] Dictated By: Kaushal Cohen MD Signed By: <Electronically signed by Kaushal Cohen MD in OV> 01/18/24 1619 DD/ 1516 TD/TT: 01/18/24 1534 Watch Hairspring Assembler: MICHELA Complete Blood Count no Diff Reviewed date:02/04/2024 11:35:53 AM Interpretation: Performing Lab:[facility], [address] [place] [address] Notes/Report: White Blood Count 11.5 4.8-10.8 X10*3/uL [...] INR Reviewed date:02/04/2024 11:35:53 AM Interpretation: Performing Lab:[facility], [address] [place] [address] Notes/Report: Prothrombin Time 13.0 10.9-12.4 SEC INTERNATIONAL [...] Time Reviewed date:02/04/2024 11:35:53 AM Interpretation: Performing Lab:[facility], [address] [place] [address] Notes/Report: Partial Thromboplastin Time 33.9 26.0-36.8 SEC For information regarding the monitoring of direct thrombin inhibitors, please refer to Pharmacy. Basic Metabolic Panel Reviewed date:02/04/2024 11:35:53 AM Interpretation: Performing Lab:[facility], [address] [place] [address] Notes/Report: Sodium 138 135-145 mmol/L Potassium 4.4 [...] Pathology Reviewed date:02/08/2024 08:35:16 AM Interpretation: Performing Lab:[facility], [address] [place] [address] Notes/Report: ---- Name: Toney Encinas Age/Sex: 63/M [facility] 1960 [id number]#: [id number] Attend Dr: Bimal Knott MD Re02/04/24 Status : ADM IN Location: [facility] 364-1 Disch: ---- SPEC : [id number] RECD : 02/04/24 STATUS: YUSUF MATHUR NUM: [id number] FRANTZ: 02/04/24-[address]: Bimal Knott MD ENTERED: 02/04/24-02 10 SP TYPE: Surgical OTHR DR: Quinton Callahan [...] label ed ?right leg? is a right uyjtx-qjq-rvkk amputation specimen which measures 34.0 cm in [...] No other erosions or ulcers are identified. [employer] sections are submitted labeled as follows: A1 and A2 sections f rom the proximal hallux; A3 distal phalangeal bone from the hallux, following decalcification; A4 anterior tibial vessels; A5 posterior tibial vessels; A6 a sample of maria g w from the margin of resection. Cassettes A3 A4 and A5 are submitted following decalcification. CEDS CONTINUED ON NEXT PAGE ---- Name: Toney Encinas Age/Sex: 63/M : 1960 Unit#: [id number] Attend Dr: Bimal Knott MD Re02/04/24 Status : ADM IN Location: [facility] 364-1 Disch: ---- SPEC : [id number] RECD : 02/04/24 STATUS: YUSUF REClemente NUM: [id number] FRANTZ: 02/04/24-[address] [facility] [address]: Bimal Knott MD ENTERED: 02/04/24- 16 SP TYPE: Surgical OTHR DR: Quinton Callahan MD ORDERED: Gross Micro L5 Copies To: Quinton Callahan MD [address] [place] [address], [address] [id number] Bimal Knott MD [facility] [address] [place] [address] ---- Signed (signature on file) Val Uneeda 02/06/24 1550 ---- END OF REPORT Type and Screen Reviewed date:02/04/2024 11:35:53 AM Interpretation: Performing Lab:[facility], [address] [place] [address] Notes/Report: Blood Type OP Antibody Screen NEGATIVE Complete Blood Count no Diff Reviewed date:02/08/2024 08:35:16 AM Interpretation: Performing Lab:[facility], [address] [place] [address] Notes/Report: White Blood Count 9.4 4.8-10.8 X10*3/uL [...] ff Reviewed date:02/08/2024 08:35:16 AM Interpretation: Performing Lab:[facility], [address] [place] [address] Notes/Report: White Blood Count 11.2 4.8-10.8 X10*3/uL [...] Panel Reviewed date:02/08/2024 08:35:16 AM Interpretation: Performing Lab:[facility], [address] [place] [address] Notes/Report: Sodium 137 135-145 mmol/L Potassium 3.9 [...] REVIEW Reviewed date:02/08/2024 08:35:16 AM Interpretation: Performing Lab:[facility], [address] [place] [address] Notes/Report: SLIDE REVIEW VERIFIED Complete Blood Count no Diff Reviewed date:02/08/2024 08:35:16 AM Interpretation: Performing Lab:[address] [address] Notes/Report: White Blood Count 9.3 4.8-10.8 X10*3/uL [...] Panel Reviewed date:02/08/2024 08:35:16 AM Interpretation: Performing Lab:[address] [address] Notes/Report: Sodium 136 135-145 mmol/L Potassium 3.8 [...] Level Reviewed date:02/08/2024 08:35:16 AM Interpretation: Performing Lab:[facility], [address] [place] [address] Notes/Report: Albumin Level 2.7 3.5-5.0 g/dL Complete Blood Count no Diff Reviewed date:02/08/2024 08:35:16 AM Interpretation: Performing Lab:[address] [address] Notes/Report: White Blood Count 9.0 4.8-10.8 X10*3/uL [...] Gel Reviewed date:02/08/2024 08:35:16 AM Interpretation: Performing Lab:[facility], [address] [place] [address] Notes/Report: Hold Green Gel See Note Specimen held untested for 24 hours; Call to request Chemistry testing. Complete Blood Count Auto Di ff Reviewed date:05/27/2024 08:42:02 AM Interpretation: Performing Lab:[facility], [address] [place] [address] Notes/Report: White Blood Count 10.9 4.8-10.8 X10*3/uL [...] te Reviewed date:05/27/2024 08:42:02 AM Interpretation: Performing Lab:[facility], [address] [place] [address] Notes/Report: Erythrocyte Sedimentation Rate 10 0-15 MM/HR Patients with polycythemia and many hemoglobin abnormalities may have depressed sed rates whereas patients with anemia may have elevated sed rates. Comprehensive Met. Panel Reviewed date:05/27/2024 08:42:02 AM Interpretation: Performing Lab:[address] [address] Notes/Report: Sodium 138 135-145 mmol/L Potassium 4.3 [...] Acid Reviewed date:05/27/2024 08:42:02 AM Interpretation: Performing Lab:[address] [address] Notes/Report: Lactic Acid 1.4 0.5-2.0 mmol/L C Reactive Protein Reviewed date:05/27/2024 08:42:02 AM Interpretation: Performing Lab:[address] [address] Notes/Report: C Reactive Protein 1.01 < or = 0.50 mg/dL Blood Culture (First) Reviewed date:06/07/2024 04:51:50 AM Interpretation: Performing Lab:[address] [address] Notes/Report: Blood Culture (First) No growth after 5 days. Blood Culture (Second) Reviewed date:06/07/2024 04:51:50 AM Interpretation: Performing Lab:[address] [address] Notes/Report: Blood Culture (Second) No growth after 5 days. XR knee RT 4V Reviewed date:05/27/2024 08:42:02 AM Interpretation: Performing Lab: Notes/Report: [address] [address] XRay Report Signed Patient: Zan Encinas MR#: [id number] : 1960 Acct:[id number] Age/Sex: 64 / M ADM Date: 05/26/24 Loc: .ED Attending Dr: Ordering Physician: Gt Cruz Date of Service: 05/26/24 Procedure(s): XR knee RT 4V Accession Number(s): [id number] cc: Gt Cruz; Quinton Callahan MD EXAMINATION: XR KNEE, RIGHT CLINICAL INFORMATION: Right stump erythema/pus discharge COMPARISON: 10/01/2023. TECHNIQUE: Four views of the right knee. FINDINGS: There is mild generalized osteopenia. There has been a kwzxk-hsb-znox amputation. There are no permeative changes involving [...] 05/26/24 1532 DD/ 1452 TD/TT: 05/26/24 1510 Watch Hairspring Assembler: [address] [address] XRay Report Signed Patient: Zan Encinas MR#: [id number] : 1960 Acct:[id number] Age/Sex: 64 / M ADM Date: 05/26/24 Loc: .ED Attending Dr: Ordering Physician: Gt Cruz Date of Service: 05/26/24 Procedure(s): XR kne e RT 4V Accession Number(s): [id number] cc: Gt Cruz; Quinton Callahan MD EXAMINATION: XR KNEE, RIGHT CLINICAL INFORMATION: Right stump erythema /pus discharge COMPARISON: 10/01/2023. TECHNIQUE: Four views of the ri t knee. FINDINGS: There is mild generalized osteopenia. There has been a lujgt-szd-zaul amputation. There are no permeative changes involving [...] 05/26/24 1532 DD/ 1452 TD/TT: 05/26/24 1510 Watch Hairspring Assembler: Complete Blood Count Auto Di ff Reviewed date:05/27/2024 08:42:02 AM Interpretation: Performing Lab:[address] [id number] Notes/Report: White Blood Count 9.2 4.8-10.8 X10*3/uL [...] Panel Reviewed date:05/27/2024 08:42:02 AM Interpretation: Performing Lab:[facility], [address] [place] [phone] Notes/Report: Sodium 140 135-145 mmol/L Potassium 3.8 [...] Creatinine Reviewed date:05/27/2024 08:42:02 AM Interpretation: Performing Lab:[facility], [address] [place] [phone] Notes/Report: Creatinine 0.84 0.5-1.4 mg/dL Creatinine Clr [...] Random Reviewed date:05/28/2024 04:55:44 AM Interpretation: Performing Lab:[facility], [address] [place] [phone] Notes/Report: Vancomycin Random 13.2 15-20 mcg/mL MR knee RT wo/w con Reviewed date:05/28/2024 04:55:44 AM Interpretation: Performing Lab: Notes/Report: [address] [place] [address] Magnetic Resonance Report Signed Patient: Zan Encinas MR#: [id number] : 1960 Acct:[id number] Age/Sex: 64 / M ADM Date: 05/26/24 Loc: HO.S3 376-[address]: Luciano Mari MD Ordering Physician: Keith Menendez MD Date of Service: 05/27/24 Procedure(s): MR knee RT wo/w con Accession Number(s): [id number] cc: Quinton Callahan MD; Keith Menendez MD [...] 05/27/24 1626 DD/ 1527 TD/TT: 05/27/24 1549 Watch Hairspring Assembler: [place] [address] Magnetic Resonance Report Signed Patient: Zan Encinas MR#: [id number] : 1960 Acct:[id number] Age/Sex: 64 / M ADM Date: 05/26/24 Loc: [facility] 376-[address]: Alfredo Mari MD Ordering Physician: Keith Menendez MD Date of Service: 05/27/24 Procedure(s): MR kngenevieve e RT wo/w con Accession Number(s): [id number] cc: Quinton Callahan MD; Keith Menendez MD [...] 05/27/24 1626 DD/ 1527 TD/TT: 05/27/24 1549 Watch Hairspring Assembler: Creatinine Reviewed date:05/28/2024 02:19:09 PM Interpretation: Performing Lab:[address] [address] Notes/Report: Creatinine 0.81 0.5-1.4 mg/dL Creatinine Clr [...] Random Reviewed date:05/30/2024 07:30:54 PM Interpretation: Performing Lab:[address] [address] Notes/Report: Vancomycin Random 13.4 15-20 mcg/mL Hold Lav - Possible Hematolo gy Reviewed date:05/30/2024 07:30:54 PM Interpretation: Performing Lab:[facility], [address] [place] [address] Notes/Report: Hold Lav - Possible Hematology SEE NOTE Specimen will be held untested for 8 hours. Call Hematology if testing is desired. Creatinine Reviewed date:05/30/2024 07:30:54 PM Interpretation: Performing Lab:[facility], [address] [place] [address] Notes/Report: Creatinine 0.79 0.5-1.4 mg/dL Creatinine Clr [...] ff Reviewed date:07/01/2024 10:06:14 AM Interpretation: Performing Lab:[facility], [address] [place] [address] Notes/Report: White Blood Count 8.9 4.8-10.8 X10*3/uL [...] Creatinine Reviewed date:07/01/2024 10:06:14 AM Interpretation: Performing Lab:[facility], [address] [place] [address] Notes/Report: Creatinine 1.10 0.5-1.4 mg/dL Estimated Glomerular Filt Rate > 60 Chronic Kidney Disease: Estimated GFR < 60 mL/min/1.73m2 Severe Kidney Disease: Estimated GFR < 15 mL/min/1.73m2 Vancomycin Trough Reviewed date:07/01/2024 10:06:14 AM Interpretation: Performing Lab:[facility], [address] [place] [address] Notes/Report: Vancomycin Trough 20.4 10.0-20.0 mcg/mL Complete Blood Count no Diff Reviewed date:10/13/2024 03:48:51 PM Interpretation: Performing Lab:[facility], [address] [place] [address] Notes/Report: White Blood Count 8.2 4.8-10.8 X10*3/uL [...] Panel Reviewed date:10/13/2024 03:48:51 PM Interpretation: Performing Lab:[address] [address] Notes/Report: Sodium 142 135-145 mmol/L Potassium 4.5 [...] stain Reviewed date:10/21/2024 05:29:45 AM Interpretation: Performing Lab:[address] [address] Notes/Report: BONE RIGHT TIBIA BONE RIGHT TIBIA Gram stain Gram stain results: Gram stain No polys Gram stain 4+ red blood cells Gram stain No organisms seen Routine Culture Reviewed date:10/13/2024 03:48:51 PM Interpretation: Performing Lab:[address] [address] Notes/Report: RIGHT BKA DEEP CULTURE Routine Culture Report - external Routine Culture 1+ Mixed skin rocio O:STAAUR Staphylococcus aureus Routine Culture Quant Org ID Routine Culture 1+ Clindamycin <=0.25 Erythromycin <=0.25 Levofloxacin 0.25 Oxacillin 0.5 Penicillin-G >=0.5 Tetracycline <=1 Trimethoprim/Sulfamethox azole <=10 Anaerobic Culture Reviewed date:10/21/2024 05:29:45 AM Interpretation: Performing Lab:[facility], [address] [place] [address] Notes/Report: BONE RIGHT TIBIA BONE RIGHT TIBIA Anaerobic Culture Report Anaerobic Culture No anaerobes isolated. Gram stain Reviewed date:10/13/2024 03:48:51 PM Interpretation: Performing Lab:[facility], [address] [place] [address] Notes/Report: RIGHT BKA DEEP CULTURE Gram stain Gram stain results: Gram stain 1+ polys Gram stain 4+ red blood cells Gram stain No organisms seen Routine Culture Reviewed date:10/21/2024 05:29:45 AM Interpretation: Performing Lab:[facility], [address] [place] [address] Notes/Report: Clindamycin <=0.25 Erythromycin <=0.25 Levofloxacin 0.25 Oxacillin 0.5 Penicillin-G >=0.5 Tetracycline <=1 Trimethoprim/Sulfamethox azole <=10 Clindamycin >=8 Erythromycin >=8 Levofloxacin <=0.12 Oxacillin >=4 Penicillin-G >=0.5 Tetracycline >=16 Trimethoprim/Sulfamethox azole 160 Vancomycin 1 Complete Blood Count Auto Di ff Reviewed date:10/21/2024 05:29:45 AM Interpretation: Performing Lab:[facility], [address] [place] [address] Notes/Report: White Blood Count 8.1 4.8-10.8 X10*3/uL [...] te Reviewed date:10/21/2024 05:29:45 AM Interpretation: Performing Lab:[address] [address] Notes/Report: Erythrocyte Sedimentation Rate 5 0-15 MM/HR Patients with polycythemia and many hemoglobin abnormalities may have depressed sed rates whereas patients with anemia may have elevated sed rates. Comprehensive Met. Panel Reviewed date:10/21/2024 05:29:45 AM Interpretation: Performing Lab:[address] [address] Notes/Report: Sodium 139 135-145 mmol/L Potassium 4.3 [...] Protein Reviewed date:10/21/2024 05:29:45 AM Interpretation: Performing Lab:[address] [address] Notes/Report: C Reactive Protein 0.52 < or = 0.50 mg/dL Gram stain Reviewed date:10/24/2024 02:48:30 PM Interpretation: Performing Lab:[address] [address] Notes/Report: R BKA surgical site Gram stain Gram stain results: Gram stain 3+ polys Gram stain 2+ epithelial cells Gram stain 3+ Gram-negative rods Gram stain 1+ Gram-positive cocci Routine Culture Reviewed date:10/24/2024 02:48:30 PM Interpretation: Performing Lab:[address] [address] Notes/Report: R BKA surgical site O:PSEAER Pseudomonas aeruginosa Routine Culture Quant Org ID Routine Culture 3+ O:CORSPE Corynebacterium species Routine Culture No susc Routine Culture Standard methods for susceptibility testing not established. Routine Culture Quant Org ID Routine Culture 2+ Cefepime 2 Ciprofloxacin 0.12 Gentamicin <=1 Meropenem 0.5 Piperacillin/Tazobactam <=4 Blood Culture (First) Reviewed date:11/07/2024 05:47:41 AM Interpretation: Performing Lab:[address] [address] Notes/Report: Blood Culture (First) No growth after 5 days. Blood Culture (Second) Reviewed date:11/07/2024 05:47:41 AM Interpretation: Performing Lab:[facility], [address] [place] [address] Notes/Report: Blood Culture (Second) No growth after 5 days. XR knee RT 4V Reviewed date:10/21/2024 05:29:45 AM Interpretation: Performing Lab: Notes/Report: [address] [address] XRay Report Signed Patient: Zan Encinas MR#: [id number] : 1960 Acct:[id number] Age/Sex: 64 / M ADM Date: 10/20/24 Loc: HO.ED Attending Dr: Ordering Physician: Pooja Tapia Date of Service: 10/20/24 Procedure(s): XR knee RT 4V Accession Number(s): [id number] cc: Quinton Callahan MD; Pooja Tapia EXAMINATION: [...] 10/20/24 1311 DD/ 1156 TD/TT: 10/20/24 1300 Watch Hairspring Assembler: [place] [address] XRay Report Signed Patient: Zan Encinas MR#: [id number] : 1960 Acct:[id number] Age/Sex: 64 / M ADM Date: 10/20/24 Loc: HO.ED Attending Dr: Ordering Physician: Pooja Tapia Date of Service: 10/20/24 Procedure(s): XR kne e RT 4V Accession Number(s): [id number] cc: Quinton Callahan MD; Pooja Tapia EXAMINATION: [...] related to disuse. Electronically ivania d by: Alfredo Kumar MD 10/20/2024 01:11 PM EDT Dictated By: Alfredo Kumar MD Signed By: <Electronically signed by Alfredo Kumar MD in OV> 10/20/24 1311 DD/ 1156 TD/TT: 10/20/24 1300 Watch Hairspring Assembler: Complete Blood Count no Diff Reviewed date:10/24/2024 02:48:30 PM Interpretation: Performing Lab:[facility], [address] [place] [address] Notes/Report: White Blood Count 6.8 4.8-10.8 X10*3/uL [...] Panel Reviewed date:10/24/2024 02:48:30 PM Interpretation: Performing Lab:[address] [address] Notes/Report: Sodium 142 135-145 mmol/L Potassium 4.3 [...] T4 Reviewed date:10/24/2024 02:48:30 PM Interpretation: Performing Lab:[address] [address] Notes/Report: TSH reflex Free T4 1.34 0.32-4.0 uIU/mL Vancomycin Random Reviewed date:10/24/2024 02:48:30 PM Interpretation: Performing Lab:[facility], [address] [place] [address] Notes/Report: Vancomycin Random 12.7 15-20 mcg/mL Hold Lav - Possible Hematolo gy Reviewed date:10/24/2024 02:48:30 PM Interpretation: Performing Lab:[facility], [address] [place] [address] Notes/Report: Hold Lav - Possible Hematology SEE NOTE Specimen will be held untested for 8 hours. Call Hematology if testing is desired. Creatinine Reviewed date:10/24/2024 02:48:30 PM Interpretation: Performing Lab:[facility], [address] [place] [address] Notes/Report: Creatinine 1.09 0.5-1.4 mg/dL Creatinine Clr [...] Random Reviewed date:10/24/2024 02:48:30 PM Interpretation: Performing Lab:[facility], [address] [place] [address] Notes/Report: Vancomycin Random 12.4 15-20 mcg/mL Hold Lav - Possible Hematolo gy Reviewed date:10/24/2024 02:48:30 PM Interpretation: Performing Lab:[facility], [address] [place] [address] Notes/Report: Hold Lav - Possible Hematology SEE NOTE Specimen will be held untested for 8 hours. Call Hematology if testing is desired. Creatinine Reviewed date:10/24/2024 02:48:30 PM Interpretation: Performing Lab:[facility], [address] [place] [address] Notes/Report: Creatinine 1.14 0.5-1.4 mg/dL Creatinine Clr [...] Random Reviewed date:10/24/2024 02:48:30 PM Interpretation: Performing Lab:[facility], [address] [place] [address] Notes/Report: Vancomycin Random 18.9 15-20 mcg/mL Reason For Referral Reason Evaluate and Treat Irregular Heart Rate History of A-Fib Diagnosis 1 Irregular heart rate (I49.9) Diagnosis 2 Left bundle branch b lock (I44.7) Diagnosis 3 History of atrial fi brillation (Z86.79) Referral Organization Quinton Callahan III, MD Referring Provider First Name Quinton Referring Provider Last Name [place] Referring Provider [facility]ity [facility] Referred Provider [facility] er, Cardiology Referred Provider Specialty Cardiology General Notes D 09/22/2024 11:10:39 AM > Faxed referral with progress note, Blaise 10/09/2024 10:26:29 AM > patient was seen [...] in a message to Dr. Ferrer's medical office clerk to ask if the patient can be seen with the nurse practitioner. Stated they will contact the patient directly. Referral Priority Routine Reason left renal hematoma evaluate and treatment Diagnosis 1 Hematoma of left kid luz, initial encounter (S37.012A) Referral Organization Quinton Callahan III, MD Referring Provider First Name Quinton Referring Provider Last Name [place] Referring Provider Speciality Internal M edicine Referred Provider Chloe Flores Referred Provider Specialty Urology General Notes Jolie Gonzalez [employer] SERVICE LEAD 09/30 03:24:56 PM >I called Dr Flores office made patient an appt for 12/03/2024 at 2:45pm pt is established with Dr Flores so no records were sent . th appt information was mailed to patient Referral Priority Routine Referral Appointment Date 12/03/2024 Reason evaluate and treatme nt Barretts esophagus barretts Esophagus Due for EGD Diagnosis 1 Palmer's esophagus determined by endoscopy (K22.70) Referral Organization Quinton Callahan III, MD Referring Provider First Name Quinton Referring Provider Last Name [place] [facility] Referred Provider Quinton Campos Referred Provider Specialty Gastroentero logy General Notes [facility] 09/30 03:23:14 PM >Called Dr Campos [...] Problem Status W/U Status Risk Notes Problem 890171891 Overweight (E66.3) Active confirmed His body mass index is 29. We discussed diet and nutrition. I recommended aggressive weight loss and sodium restriction. Problem 210103837 Mixed hyperlipidemia (E78.2) Active confirmed A comprehensive laboratory database with a fasting lipid profile will be obtained. He was continued on his currrent meddications. Problem 36171811 Chronic obstructive pulmonary disease, unspecified COPD type (J44.9) Active confirmed He has resumed smoking 5 cigarettes per day. He was counseled about this and made aware of the smoking cessation programs in the area. Problem 98002241 Tobacco dependence (F17.200) Active confirmed I have counseled him about smoking cessation and offered to refer him to smoking cessation programs in the community. He said he would consider this and try to cut down. Problem Left bundle branch block (66903034) Left bundle branch block (I44.7) Active confirmed The basting cleaner's interpretation of the perfusion test was that the defect in the septum may be due to the bundle branch block. I will discuss this with cardiology. Problem 86660725 Hiatal hernia (K44.9) Active confirmed The symptoms of his esophageal reflux and hiatal hernia well controlled with current medications. No change in his regimen as needed. Problem 896159179 Peripheral arterial disease (I73.9) Active confirmed He is seeing the vascular surgeon eevery 2 weeks. 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 The plan is to fit him for a prosthesis. He denies any ulcers or claudication in the left leg. Problem Hoarseness (48499797) Hoarseness (R49.0) Active confirmed He will be referred to ENT for indirect laryngoscopy. Problem 6442003 Umbilical hernia without obstruction and without gangrene (K42.9) Active confirmed This is asymptomatic and requires no treatment at this time. Problem 144933761 Benign prostatic hyperplasia with lower urinary tract symptoms (N40.1) Active confirmed The tamsulosin was continued today. He will notify me if his symptoms worsen. He has had no retention. He has symptoms of prostatism. Problem 118747126 Acute right-sided low back pain with right-sided sciatica (M54.41) Active confirmed His back pain continues and I have increased the gabapentin. Problem Cardiac arrhythmia (789872711) Irregular heart rate (I49.9) Active confirmed These episodes had night have increased lately. He has had no chest pain. He has had no increase in his chronic dyspnea. Holter monitor has been ordered. He is not anticoagulated. Problem 853880337 Palmer's esophagus determined by endoscopy (K22.70) Active confirmed He is due for an endoscopy and was referred back to his gastroenterolog ist, Dr. Quinton Campos. 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 Problem 57027225013654784 Carpal tunnel syndrome on both sides (G56.03) Active confirmed He has a history of carpal tunnel syndrome treated by Dr. Raphael. He is currently asymptomatic. Problem 9608490643164720 Chronic osteomyelitis of right tibia with draining [...] Date Provider Diagnosis Quinton Callahan III, MD [address] [place] [address] [address] [place], [place] [address] 12/28/2023 Quinton Callahan Peripheral arterial disease I73.9 ; Chronic obstructive pulmonary disease, unspecified COPD type J44.9 ; Benign prostatic hyperplasia with lower urinary tract symptoms N40.1 ; Palmer's esophagus determined by endoscopy K22.70 ; Hiatal hernia K44.9 ; Overweight E66.3 ; Tobacco dependence F17.200 and Mixed hyperlipidemia E78.2 Quinton Callahan III, MD [address] [place] [address] [place] [address] 06/12/2024 Quinton Callahan Peripheral arterial disease I73.9 ; Benign prostatic hyperplasia with lower urinary tract symptoms N40.1 ; Palmer's esophagus determined by endoscopy K22.70 ; Chronic obstructive pulmonary disease, unspecified COPD type J44.9 ; Overweight E66.3 ; Tobacco dependence F17.200 and Mixed hyperlipidemia E78.2 Quinton Callahan III, MD [address] [place] [address] [place] [address] 07/10/2024 Quinton Callahan Peripheral arterial disease I73.9 [...] Tobacco dependence F17.200 Quinton Callahan III, MD [address] [place] [address] [place] [address] 09/09/2024 Quinton Callahan Irregular heart rate I49.9 [...] draining sinus M86.461 Quinton Callahan III, MD [address] [place] [address] [place] [address] 09/30/2024 Quinton Callahan Chronic osteomyeliti s of right tibia with draining sinus M86.461 ; Overweight E66.3 ; Umbilical hernia without obstruction and without gangrene K42.9 ; Peripheral arterial disease I73.9 ; Chronic obstructive pulmonary disease, unspecified COPD type J44.9 ; Splenic vein thrombosis I82.890 ; Palmer's esophagus determined by endoscopy K22.70 and Tobacco dependence F17.200 Quinton Callahan III, MD [address] [place] [address] [place] [address] 10/29/2024 Quinton Callahan Chronic osteomyeliti s of right tibia with draining sinus M86.461 ; Tobacco dependence F17.200 ; Peripheral arterial disease I73.9 ; Palmer's esophagus determined by endoscopy K22.70 ; Chronic obstructive pulmonary disease, unspecified COPD type J44.9 ; Hiatal hernia K44.9 and Mixed hyperlipidemia E78.2 Quinton Callahan III, MD [address] [place] [address] [place] [address] 11/27/2023 Quinton Callahan III, MD [address] [place] [address] [place] [address] 12/18/2023 Quinton Callahan III, MD [address] [place] [address] [place] [address] 12/21/2023 Quinton Callahan III, MD [address] [place] [address] [place] [address] 12/21/2023 Quinton Callahan III, MD [address] [place] [address] [place] [address] 02/12/2024 Quinton Callahan III, MD [address] [place] [address] [place] [address] 03/04/2024 Quinton Callahan III, MD [address] [place] [address] [place] [address] 05/02/2024 Quinton Callahan III, MD [address] [place] [address] [place] [address] 05/02/2024 Quinton Callahan Peripheral arterial disease I73.9 [facility] [address] [place] [id number] 06/02/2024 Quinton Callahan III, MD [address] [place] [address] [place] [address] 07/23/2024 Quinton Callahan III, MD [address] [place] [address] [place] [address] 08/27/2024 Quinton Callahan III, MD [address] [place] [address] [address] [place], [place] [phone] 09/04/2024 Quinton Callahan Assessments Encounter Date Diagnosis [...] endoscopy and was referred back to his inspector and unloader, Dr. Quinton Campos. 07/10/2024 Benign prostatic hyperplasia [...] endoscopy and was referred back to his inspector and unloader, Dr. Quinton Campos. 06/12/2024 Chronic obstructive pulmonary disease, unspecified COPD type (ICD-10 - J44.9) He has resumed smoking 5 cigarettes per day. He was counseled about this and made aware of the smoking cessation programs in the area. 07/10/2024 Palmer's esophagus determined by endoscopy (ICD-10 - K22.70) He is due for an endoscopy and was referred back to his inspector and unloader, Dr. Quinton Campos. 09/09/2024 Palmer's esophagus determined by endoscopy (ICD-10 - K22.70) He is due for an endoscopy and was referred back to his inspector and unloader, Dr. Quinton Campos. 09/30/2024 Peripheral arterial disease [...] endoscopy and was referred back to his inspector and unloader, Dr. Quinton Campos. 12/28/2023 Hiatal hernia (ICD-1 [...] endoscopy and was referred back to his inspector and unloader, Dr. Quinton Campos. 10/29/2024 Mixed hyperlipidemia (ICD-10 [...] 04/13/2020 SARS COV2 RNA RT PCR 09/29/2019 ECG 7 day holter monitor 09/09/2024 Next Appt Details Provider Name:Quinton Callahan , 12/02/2024 03:00:00 PM, [address] [place] [address] , [place] [address], [place], [address], Insurance Providers Payer Name Payer Address Payer Phone Subscriber Number Group Number Insured Name Patient Relationship to Insured Coverage Start Date Coverage End Date [employer] [address] [place] [address] [id number] Zan Olivo Self - patient is the insured 4 MEDICARE NGS [address] [place] [address] [id number] Zan Olivo Self - patient is the [...] right leg Surgical History Surgery Date(Month/Year) Right mrrqm-upd-zmsw amputation 4 arteriogram right lower extremity 05/2019 upper endoscopy, [facility], Dr. Quinton Campos, Palmer's esophagus 2014 upper endoscopy and colonosc opy, [facility], Dr. 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
--- OUTSIDE RECORDS SUMMARY | 2024-11-19 15:23 | XMS_ITS | Encounter Summary ---
Author Organization [facility] Address [address] [place] [address] [place] [address] Phone Care Team Providers Care Project Engineering Director Name Role Phone Quinton Callahan MD Primary Care Provider +1- [phone] Encounter Details Date Type Department Care Team (Late st Contact Info) Description 11/28/2023 Procedure Pass [facility] [address] [place] [address] Social History Tobacco Use Types Packs/Day Years [...] on filedocumented in this encounter Care Teams Project Engineering Director Relationship Specialty Start Date End Date Quinton Callahan MD PCP - General Medical Oncology 11/23/23 documented as of this encounter Additional Source Comments The information contained in this document represents components of the legal health record. It is not the complete legal health record.[facility]
--- OUTSIDE RECORDS SUMMARY | 2024-11-19 15:23 | XMS_ITS | Encounter Summary ---
Author Organization [facility] Address [address] [place] [address] [place] [phone] Phone Care Team Providers Care Item Processor Name Role Phone Quinton Callahan MD Primary Care Provider +1- [phone] Encounter Details Date Type Department Care Team (Late st Contact Info) Description 12/08/2023 Procedure Pass [facility] E[facility] [address] [place] [address] Social History Tobacco Use Types Packs/Day Years [...] on filedocumented in this encounter Care Teams Item Processor Relationship Specialty Start Date End Date Quinton Callahan MD PCP - General Medical Oncology 11/23/23 documented as of this encounter Additional Source Comments The information contained in this document represents components of the legal health record. It is not the complete legal health record.[facility]
--- OUTSIDE RECORDS SUMMARY | 2024-11-19 15:23 | XMS_ITS | Encounter Summary ---
Author Organization [facility] Address [address] [place] [address] [place] [address] Phone Care Team Providers Care Chipper Machine Operator Name Role Phone Quinton Callahan MD Primary Care Provider +1- [phone] Encounter Details Date Type Department Care Team (Late st Contact Info) Description 11/28/2023 Procedure [facility] [address] [place] [address] Social History Tobacco Use Types Packs/Day Years [...] on filedocumented in this encounter Care Teams Chipper Machine Operator Relationship Specialty Start Date End Date Quinton Callahan MD PCP - General Medical Oncology 11/23/23 documented as of this encounter Additional Source Comments The information contained in this document represents components of the legal health record. It is not the complete legal health record.[facility]
--- OUTSIDE RECORDS SUMMARY | 2024-11-19 15:23 | XMS_ITS | Clinical Summary ---
Author Organization [facility] Address [address] [place] [address] Phone Care Team Providers Care Cereal Maker Name Role Phone Quinton Callahan MD Primary Care Provider +1- [phone] Allergies No known active allergies Medications oxyCODONE-aceta [...] this topic Medical Devices Implanted Type Area Technical Healthcare Consultant Device Identifier Shelf Expiration Date Model / Serial / Lot Graft Vascular 6.0mmx60 70cm Propaten Heparin Carmeda Bioactive Surface Thin Wall Removable Ring Stretch - [id number] Implanted:Qty: 1 on 12/02/2023 by Percy Segundo MD at [facility] STANDARD Right: Vein [employer] [id number] 08/13/2026 [id number] / [id number] / Metal Clip Celd Left Groin 10/2023 Stent Right Femoral Artery Patch Pericardium 2cm 9cm Decellularized Bovine [employer] - [id number] Implanted:Qty: 1 on 12/02/2023 by Percy Segundo MD at [facility] Right: Vein [employer] [id number] 03/24/2025 [id number] / / [id number] Procedures Procedure Name Priority Date/Time Associated Diagnosis Comments BASIC METABOLIC PANEL Routine 02/18/2024 8:01 AM EST Aftercare for amputation stump LIPID PANEL Routine 11/28/2023 1:21 AM EDT from Last 3 Months or Most Recently Relevant to Health Maintenance Results * (ABNORMAL) Basic metabolic panel (02/18/2024 8:01 AM EST) SODIUM 137 133 - 146 mmol/L [facility] CHLORIDE 102 96 - 108 mmol/L [facility] POTASSIUM 4.4 3.3 - 5.1 mmol/L [facility] CO2 25 21 - 35 mmol/L [facility] BUN 13 6 - 19 mg/dL [facility] CREATININE 0.70 0.5 - 1.5 mg/dL [facility] GLUCOSE 101(H) 70 - 99 mg/dL [facility] CALCIUM 9.7 8.4 - 10.3 mg/dL [facility] EGFR 102 >59 mL/min/1.7 3m2 [facility] Comment:Estimated glomerular filtration rate calculated using the CKD-EPI refit equation. ANION GAP 14 10 - 20 mmol/L [facility] Blood 02/18/2024 8:01 AM EST 02/18/2024 10:00 AM EST us Garrett Fletcher MD LAB BLOOD ORDERABLES Final Resul t [facility] [address] [place] [address] * Lipid panel (11/28/2023 1:21 AM EDT) CHOLESTEROL 125 <200 mg/dL [facility] TRIGLYCERIDES 60 35 - 150 mg/dL [facility] HDL 60 40 - 80 mg/dL [facility] CALCULATED LDL 53 50 - 129 mg/dL [facility] VLDL 12 <31 mg/dL [facility] CARDIAC RISK RATIO 2.1 0.0 - 4.0 [facility] Blood 11/28/2023 1:21 AM EDT 11/28/2023 1:35 AM EDT us Ayla Owens PA-C LAB BLOOD ORDERABLES Clementina flo Result [facility] [address] [place] [id number] from Last 3 Months or Most Recently Relevant to Health Maintenance Insurance [employer] PPO MEDICARE REPLACEMENT MEDICARE PART A & B [employer] O MEDICARE REPLACEMENT MEDICARE PART A & B AET[employer] O MEDICARE REPLACEMENT MEDICARE PART A & B AETNA [facility] MEDICARE REPLACEMENT MEDICARE PART A & B [facility] MEDICARE REPLACEMENT MEDICARE PART A & B [facility] MEDICARE REPLACEMENT MEDICARE PART A & B Advance Directives For more information, please contact: [phone] (9AM - 5PM Swati/[facility], Sunday-Sunday) * Full Code (Latest Code Status on File) Date Activated Date Inactivated Comments 11/27/2023 4:16 PM Question Answer Comments Code Status Confirmed With: Patient Care Teams Cereal Maker Relationship Specialty Start Date End Date Quinton Callahan MD PCP - General Medical Oncology 11/23/23 Additional Source Comments The information contained in this document represents components of the legal health record. It is not the complete legal health record.[facility]
--- OUTSIDE RECORDS SUMMARY | 2024-11-19 15:23 | XMS_ITS | Encounter Summary ---
Author Organization [facility] Address [address] [place] [address] [place] [address] Phone Care Team Providers Care Pipe Setter Name Role Phone Quinton Callahan MD Primary Care Provider +1- [phone] Encounter Details Date Type Department Care Team (Late st Contact Info) Description 12/02/2023 Procedure Pass [facility] [address] [place] [address] Social History Tobacco Use Types Packs/Day Years [...] on filedocumented in this encounter Care Teams Pipe Setter Relationship Specialty Start Date End Date Quinton Callahan MD PCP - General Medical Oncology 11/23/23 documented as of this encounter Additional Source Comments The information contained in this document represents components of the legal health record. It is not the complete legal health record.[facility]
== END ==
LOC: HO.CARD 12:57
PROVIDERS: PCP Internal Medicine Medical Oncology; Visit Provider Internal Medicine Medical Oncology
DX: I49.8 Other specified cardiac arrhythmias (principal); I49.2 Junctional premature depolarization
CPT/HCPCS: 93005; 93242; 99212

== ENCOUNTER 2024-11-19 15:00 | Outpatient (AMB) | payer MEDICARE, SELFPAY ==
[2024-11-19 15:04] VITALS: BP 108/50; PULSE 57; BMI 25.5
--- NOTE | 2024-11-19 15:04 | A.OFFVIS_ITS ---
Vital Signs 11/19/24 15:04 Height 6 ft Weight 188 lb BMI 25.5 BP 108/50 L Pulse 57 Pulse Source Monitor Intake Visit Reasons: sooner appt Hx of AFIB, LBBB Accompanied by: Self / Same As Patient Allergies No Known Allergies Allergy (Verified 11/19/24 15:08) Medication List - Last Reconciled 11/19/24 by Gary Hylton NP acetaminophen (Tylenol Extra Strength) 1,000 mg PO Q6H PRN albuterol sulfate 90 mcg/actuation 2 puffs inhalation Q4H PRN aspirin (Luis Low Dose Aspirin) 81 mg PO DAILY atorvastatin 10 mg PO DAILY gabapentin 600 mg PO BID metoprolol succinate ER 25 mg PO DAILY Held on 10/23/24. Instructions: Resume on 11/10/24. Your metoprolol was held because your heart rate was low while in the hospital. Heart rate and blood pressure were well-controlled throughout hospital stay. Continue to hold metoprolol at this time until you follow up with your PCP to consider whether stopping medication or resuming it at a later date. [phone] mcg (Centrum Silver Men) 1 tab PO DAILY pantoprazole 80 mg PO DAILY@0630 tamsulosin 0.8 mg PO DAILY HPI Comments Details: This is a 64-year-old male patient coming in for a hospital discharge follow-up visit. Patient with a history of peripheral arterial disease status post right BKA on January 2024 with a revision in September 2024 was in worsening right stump pain and drainage was treated for acute cellulitis with chronic osteomyelitis. Patient says it in the past due to developing multiple clots in the legs, Dr. Knott had put him on Eliquis but developed bleeding and was discontinued. In the past there has been questions about AFib for the patient with no clear record. During this hospital visit, there has been a question about AFib in the ER with slow heart rate and therefore patient's metoprolol was on hold. His PCP recently got him on Holter monitor to see if patient truly has AFib. Patient is reporting palpitations intermittently mostly with exertion otherwise is denying any exertional chest pain, shortness of breath, dizziness, orthopnea, PND, leg edema, presyncope or syncope. Patient is reporting compliance with all his med ications. [facility] Medical History Peripheral arterial disease Below-knee amputation of right lower extremity Osteomyelitis Krish angina Left bundle branch block Bakers cyst Nicotine dependence, cigarettes, uncomplicated Arthritis BPH (benign prostatic hyperplasia) Elevated cholesterol Complex regional pain syndrome i of right lower limb S/P angiogram of extremity (07/18/23) Atrial fibrillation History of Palmer's esophagus Splenic vein thrombosis History of femoral angiogram GERD (gastroesophageal reflux disease) COPD (chronic obstructive pulmonary disease) Surgical History Hx of BKA History of tonsillectomy Hx of oral surgery Hx of tracheostomy History of esophagogastroduodenoscopy (EGD) H/O colonoscopy Social History Household Members: Family and Children Household Members Other:: Son, son girlfriend, grandbaby Housing: Apartment Housing Other:: 3 stairs to climb Are you a primary critical care paramedic to a significant other at home: No Do you presently have visiting nurse or other home services: Yes Comment: Dr Knott made aware of absent pulse and sensation in right foot Patient Tobacco Use Status: Current everyday Tobacco user Tobacco use type: Cigarette Cigarette Packs Per Day: 1 Cigarettes Per Day: 20.0 Years Smoked: 50 e-Cigarette/Vaping Use: Never Used Second Hand Smoke Exposure: No Substance Use Type: Marijuana Advance Directives Date on File: 01/17/24 service: Yes Review of Systems Const Denies daytime sleepiness, Denies difficulty sleeping, Denies snoring, Denies stops breathing during sleep and Denies weakness Card Reports chest pain, Denies rapid heart rate, Denies irregular heart rhythm, Denies claudication, Denies leg edema, Denies lightheadedness, Reports palpitations, Reports dyspnea, Denies dyspnea on exertion, Denies orthopnea, Denies paroxysmal nocturnal dyspnea and Denies slow heart rate Resp Denies cough, Reports dyspnea, Denies dyspnea on exertion and Denies snoring GI Reports no additional complaints, Denies hematochezia, Denies change in stool character and Denies dyspepsia Musc Denies abnormal gait, Denies muscle weakness and Denies numbness Neuro Denies abnormal gait, Denies numbness and Denies weakness Endo Reports palpitations Physical Exam Vital Signs: Last Vital Signs Pulse 57 11/19/24 15:04 BP 108/50 L 11/19/24 15:04 BMI result Body Mass Index 25.5 Const General: cooperative, healthy appearing, comfortable and no acute distress Orientation/consciousness: patient oriented x3 HEENT Head: Yes normal to inspection Neck Neck: Yes normal visual inspection, Yes trachea midline and Yes supple Chest Chest palpation & inspection: normal inspection of the chest Resp Effort & Inspection: normal respiratory effort Auscultation: clear to auscultation bilaterally, no crackles, no rales, no rhonchi and no wheezes Cardio Jugular venous distension: no JVD Palpation: normal PMI Rate: regular rate Rhythm: regular rhythm Heart sounds: S1 normal heart sound present, S2 normal heart sound present, no click, no gallops, no murmurs and no rubs Peripheral pulses: Peripheral pulses 2+ throughout GI Inspection: Yes normal to inspection Palpation (GI): Soft to palpation Auscultation: normal bowel sounds Skin General skin exam: no rashes or lesions noted Neuro General: patient oriented x3 Extrem Other: Right BKA General: Yes normal to inspection, No no pedal edema and No calf tenderness Psych Appearance: grossly normal Mental Status: mental status grossly normal Speech and movement: Normal speech and movement present Office Procedures EKG Details: EKG today showed sinus bradycardia, rate 57 beats per minute, left bundle branch block, [place], [place]. [id number], Complete Assessment & Plan Assessment & Plan (1) Palpitations: Code(s): R00.2 - Palpitations Category: Medical Plan: Recent hospitalization, there has been questions about AFib but upon further review an EKG, it looks to be sinus bradycardia with PACs. Patient currently is wearing a Holter monitor for 7 days prescribed by his PCP. Pathophysiology of AFib discussed in detail with the patient. Patient understanding that if he has true AFib then patient will need to go on anticoagulation. Patient will most probably be on Xarelto given the fact that patient did not tolerate Eliquis in the past. If patient has any intolerance to anticoagulation with bleeds then patient may need a Watchman device implanted. Patient understanding of the plan. At this time, patient's heart rate is at 57. We will continue to hold metoprolol. Further treatment based on findings. (2) Left bundle branch block: Code(s): I44.7 - Left bundle-branch block, unspecified Category: Medical Plan: Chronic left bundle branch block. Clinically stable. (3) Peripheral arterial disease: Code(s): I73.9 - Peripheral vascular disease, unspecified Category: Medical Plan: Follows with Dr. Knott. On aspirin currently. (4) Hospital discharge follow-up: Code(s): Z09 - Encounter for follow-up examination after completed treatment for conditions other than malignant neoplasm Plan: As above. Advised on heart healthy diet, exercise as tolerated, avoiding stimulants such as caffeinated beverages/ alcohol/ tobacco use, med compliance, and management of vascular risk factors. Follow up in 2-3 months. In the interim, patient will call the office with any concerns or change in symptoms. This note was generated using voice recognition software. While every effort has been made to ensure accuracy and proper content management specialist, there may be occasional errors that could affect the content or meaning of the described symptoms. Orders: Orders AMB EKG-In Office Today R00.2 - Palpitations Coding Level of Care Code Est Pt Level 4 (90203) Complex EM visit Add On G2211 Diagnoses Palpitations R00.2 Left bundle branch block I44.7 Peripheral arterial disease I73.9 Hospital discharge follow-up Z09 CPT Codes EKG - CPT: 43288-[id number], Complete ([id number]) Time Spent (min) 32 Comment Time spent in reviewing the chart, test results, assessment, counseling and documentation.
== END 2024-11-19 15:47 | disposition home or self-care (01) ==
LOC: HO.HCS 15:00
PROVIDERS: PCP Internal Medicine Medical Oncology
DX: R00.2 Palpitations (principal); I44.7 Left bundle-branch block, unspecified; I73.9 Peripheral vascular disease, unspecified; Z09 Encounter for follow-up examination after completed treatment for conditions other than malignant neoplasm
CPT/HCPCS: 93010; 99214; G2211

== ENCOUNTER 2024-12-02 13:01 | Outpatient (AMB) | payer MEDICARE, SELFPAY ==
--- OUTSIDE RECORDS SUMMARY | 2023-08-14 06:30 | XMS_ITS ---
Author Organization [facility] Address [address] [place] [address] Care Team Providers Care Glass Carrier Name Role Phone Quinton Callahan MD Primary Care Provider Unavailab Quinton Alvarez [phone] REASON FOR VISIT Patient presents today for EGD, NUGENT'S ESOPHAGUS Encounters Encounter Location Date Provider Diagnosis [facility] [address] [facility] [address] [place] [address] 08/14/2023 Quinton Campos Plan Of Treatment Next Appt Details Provider Name:Quinton Campos , 02/04/2025 01:00:00 PM, [address], [address], [place], [address], Progress Notes * ANGELA HERNANDEZOB:1960 (64 yo M)Acc No.[id number]:08/14/2023 Progress Notes Patient: JUAN FRANCISCO TONG Provider: Angeles Campos MD :1960 A ge:63 Y S ex:Male Date:08/14/2023 Address:[address] [place] [address] [place] Pcp:Quinton Callahan MD Subjective: * Chief Complaints: [...] 08/14/2023 Generated for Tristen bustamante/Jai/Henrry on: 1 03:57 PM EDT
--- OUTSIDE RECORDS SUMMARY | 2024-09-09 07:30 | XMS_ITS ---
Author Organization Quinton Callahan III, MD Address [address] [place] [address] Care Team Providers Care Ball Truing Machine Operator Name Role Phone Dr. Quinton [...] Provider Speciality Internal M edicine Referred Provider [facility] er, Cardiology Referred Provider Specialty Cardiology [...] putting in a message to Dr. Ferrer's certified medical coding specialist to ask if the patient can be [...] Date Provider Diagnosis Quinton Callahan III, MD [address] [place] [address] [place] [address] 09/09/2024 Quinton Callahan Irregular heart rate I49.9 [...] endoscopy and was referred back to his gravity prospector, Dr. Quinton Campos. 09/09/2024 Chronic obstructive pulmonary [...] Irregular Heart Rate History of A-Fib, Cardiology [facility] Next Appt Details Follow Up: 3 Weeks, Reason: OV Provider Name:Quinton Callahan , 01/06/2025 02:30:00 PM, [address] [place] [address] [address], [place], [address], Provider Name:Quinton Callahan , 12/08/2025 02:30:00 PM, [address] [place] [address] [address], [place], [address], Progress Notes * Ana ENCINAShDOB:1960 (64 yo M)Acc No.[id number]:09/09/2024 Progress Notes Patient: Zan TONG Provider: Angeles Callahan MD :1960 A ge:64 Y S ex:Male Date:09/09/2024 Address:[address] [place] [address], [facility] [id number] Subjective: * Chief Complaints: * R ight [...] after dental work 1985upper endoscopy and colonoscopy, [facility], Dr. Quinton Campos 2009upper endoscopy, [facility], Dr. Quinton Campos, Palmer's esophagus 2014arteriogram right lower extremity 05/2019Right qstmd-reo-ufkd amputation 02-04-2024 * Hospitalization/Major Diagno stic Procedure: [...] healthy grandchildren. One of his siblings has Nyvrtsf-Lavlx-Zlodd disease. 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 He was born in [place], [place]. He came to [place] in 1984. He is with 6 children. He has 11 grandchildren. He is a of [employer]. He trained at [employer] and served in [employer]. * Medications: T akingMetoprolol Succinate ER 25 [...] 2 tablets by mouth once daily DiscontinuedNystatin 491702 UNIT/GM Powder 1 application Externally Twice a [...] reviewed and reconciled with the patientDiscontinued Nystatin 281207 UNIT/GM Powder 1 application Externally Twice a [...] endoscopy and was referred back to his gravity prospector, Dr. Quinton Campos. 5 . C hronic [...] * Treatment: 2. O thers Referral To:Cardiology [facility] Cardiology Reason:Evaluate and Treat Irregular Heart [...] 09/09/2024 Generated for Tristen bustamante/Jai/eTransmitting on: 1 03:57 PM EDT History and Physical Notes * [...] Referred Provider Not nicholas 09/09/2024 Quinton Callahan [facility], Cardiology Evaluate and Treat Irregular Heart Rate History of A-Fib
--- OUTSIDE RECORDS SUMMARY | 2024-09-30 10:00 | XMS_ITS ---
Author Organization Quinton Callahan III, MD Address [address] [place] [address] [place] [address] Care Team Providers Care Electronics Recycler Name Role Phone Dr. Quinton Callahan III [...] Provider Specialty Urology General Notes Jolie Gonzalez [facility] 09/30 03:24:56 PM >I called Dr Flores office made patient an appt for 12/03/2024 at 2:45pm pt is established with Dr Flores so no records were sent . [facility] appt information was mailed to patient [...] Specialty Gastroentero logy General Notes Jolie Gonzalez [facility] 09/30 03:23:14 PM >Called Dr Campos [...] Date Provider Diagnosis Quinton Callahan III, MD [address] [place] [address] [address] [place], [place] [address] 09/30/2024 Quinton Callahan Chronic osteomyeliti s of [...] endoscopy and was referred back to his interior design program chair, Dr. Quinton Campos. 09/30/2024 Tobacco dependence (ICD-10 [...] Cephalexin 500 MG TAKE 1 CAPSULE BY [facility] TWICE DAILY Oral Albuterol Sulfate HFA [...] Provider Name:Quinton Callahan , 01/06/2025 02:30:00 PM, [address] [place] [address] [address], [place], [address], Provider Name:Quinton Callahan , 12/08/2025 02:30:00 PM, [address] [place] [address] [address], [place], [address], Progress Notes * Ana ENCINAShDOB:1960 (64 yo M)Acc No.[id number]:09/30/2024 Progress Notes Patient: Zan TONG Provider: Angeles Callahan MD :1960 A ge:64 Y S ex:Male Date:09/30/2024 Address:[address] [place] [phone] Subjective: * Chief Complaints: * R ecurrent [...] esophagus and was referred back to his interior design program chair today. He umbilical hernia is not symptomatic.? He continues to smoke 17 cigarettes a day and is reducing this number. He had a cyst removed from his back by the software development leader. Questions H ave you had any new [...] after dental work 1986upper endoscopy and colonoscopy, [facility], Dr. Quinton Campos 2009upper endoscopy, [facility], Dr. Quinton Campos, Palmer's esophagus 2014arteriogram right lower extremity 05/2019Right ncvsf-moz-kyqz amputation 02-04-2024 * Hospitalization/Major Diagno stic Procedure: [...] healthy grandchildren. One of his siblings has Gtmfrbu-Ioksf-Rdmui disease. 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 He was born in [place], [place]. He came to [place] in 1984. He is with 6 children. He has 11 grandchildren. He is a of [employer]. He trained at [employer] and served in [employer]. * Medications: T akingMetoprolol Succinate ER 25 [...] endoscopy and was referred back to his interior design program chair, Dr. Quinton Campos. 8 . T obacco [...] 09/30/2024 Generated for Tristen bustamante/Jai/Henrry on: 1 03:58 PM EDT History and Physical Notes * [...]
--- OUTSIDE RECORDS SUMMARY | 2024-10-15 13:00 | XMS_ITS ---
Author Organization Quinton Callahan III, MD Address [address] [place] [address] [place] [address] Care Team Providers Care Technology Adoption Manager Name Role Phone Dr. Quinton Callahan III Primary Care Provider REASON FOR VISIT Annual Exam Social History Sex Assigned At : Social History Observation Description Sex Assigned At Male Encounters Encounter Location Date Provider Diagnosis Quinton Callahan III, MD [address] [place] [address] [place] [address] 10/15/2024 Quinton Callahan Plan Of Treatment Next Appt Details Provider Name:Quinton Callahan , 01/06/2025 02:30:00 PM, [address] [place] [address] [place], [address], Provider Name:Quinton Callahan , 12/08/2025 02:30:00 PM, [address] [place] [address] [place], [address], Progress Notes * Ana ENCINAShDOB:1960 (64 yo M)Acc No.[id number]:10/15/2024 Progress Notes Patient: Zan TONG Provider: Angeles Callahan MD :1960 A ge:64 Y S ex:Male Date:10/15/2024 Address:[address] [place] [address], [address] [place] [id number] Subjective: * Chief Complaints: * 1 . [...] 10/15/2024 Generated for Tristen bustamante/Jai/Henrry on: 1 03:58 PM EDT
--- OUTSIDE RECORDS SUMMARY | 2024-10-29 10:30 | XMS_ITS ---
Author Organization Quinton Callahan III, MD Address [address] [place] [address] [place] [address] Care Team Providers Care Signal Fitter Name Role Phone Dr. Quinton Callahan III [...] Provider Diagnosis Quinton Callahan III, MD [address] [place] [address] [place] [address] 10/29/2024 Quinton Callahan Chronic osteomyeliti s of [...] endoscopy and was referred back to his poker room manager, Dr. Quinton Campos. 10/29/2024 Chronic obstructive pulmonary [...] Name:Quinton Callahan , 01/06/2025 02:30:00 PM, [address] [place] [address] KAILYN JURDAO, [place], [address], Provider Name:Quinton Callahan , 12/08/2025 02:30:00 PM, [address] [place] [address] KAILYN JURADO, [place], [address], Progress Notes * Ana ENCIANShDOB:1960 (64 yo M)Acc No.[id number]:10/29/2024 Patient: Zan TONG Provider: Angeles Callahan MD :1960 A ge:64 Y S ex:Male Date:10/29/2024 Address:[address] [place], [place] [phone] Subjective: * Chief Complaints: * R ight [...] Palmer's esophagus 2014arteriogram right lower extremity 05/2019Right zniye-qax-lnqj amputation 02-04-2024 * Hospitalization/Major Diagno stic Procedure: [...] healthy grandchildren. One of his siblings has Dmuyqov-Qvfah-Dayxe disease. 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 He was born in [place], [place]. He came to [place] in 1984. He is with 6 children. He has 11 grandchildren. He is a of [employer]. He trained at [employer] and served in [employer]. * Medications: T akingAtorvastatin Calcium 10 MG [...] endoscopy and was referred back to his poker room manager, Dr. Quinton Campos. 5 . C hronic [...] 10/29/2024 Generated for Tristen bustamante/Jai/Allysonitting on: 1 03:58 PM EDT History and [...]
--- OUTSIDE RECORDS SUMMARY | 2024-12-02 11:00 | XMS_ITS ---
Author Organization Quinton Callahan III, MD Address [address] [place] [address] Care Team Providers Care Icing Machine Operator Name Role Phone Dr. Quinton Callahan III Primary Care Provider Allergies Allergen (clinical drug ingredient) Drug/Non Drug Allergy documented on EMR Reaction Allergy Type Onset Date Status No Known Drug Allergy Unknown Drug Allergy Active No Known Food Allergy Unknown Drug Allergy Active REASON FOR VISIT Annual Exam, Have appointment for a Colonoscopy Consult with Dr. Campos, Rib injury, Right Medications Medication SIG (Take, Route, Frequency, Duration) [...] 100.1 degrees Fahrenheit 025 Blood pressure systolic 145 mm Hg 12/03/19 Blood pressure diastolic 91 mm Hg 025 Heart Rate 64 /min 12/02/2024 Respiratory Rate 15 /min 12/02/2024 Height 73 in 12/02/2024 Weight 197 lbs 12/02/2024 BMI 25.99 kg/m2 12/02/2024 Oximetry 96 % 12/02/2024 Encounters Encounter Location Date Provider Diagnosis Quinton Callahan III, MD [address] [place] [address] [place] [address] 12/02/2024 Quinton Callahna Chronic osteomyeliti s of right tibia with draining sinus M86.461 Assessments Encounter Date Diagnosis (ICD Code) Assessment Notes Treat ment Notes Treatment Clinical Notes 12/02/2024 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 He is currently on an antibiotic. His pain is mild. Plan Of Treatment Medication Medication Name Sig [...] Provider Name:Quinton Callahan , 01/06/2025 02:30:00 PM, [address] [place] [address] [address], [place], [address], Provider Name:Quinton Callahan , 12/08/2025 02:30:00 PM, [address] [place] [address] [address], [place], [address], Progress Notes * Ana ENCINAShDOB:1960 (64 yo M)Acc No.[id number]:12/02/2024 Progress Notes Patient: Zan TONG Provider: Angeles Callahan MD :1960 A ge:64 Y S ex:Male Date:12/02/2024 Address:[address] [place] [address], [facility], [id number] Subjective: * Chief Complaints: * 1 . Annual Exam. 2. Have appointment for a Colonoscopy Consult with Dr. Campos. 3. Rib injury, Right. * HPI: D epression Screening: just saw angel. PHQ-9 L ittle interest or pleasure in [...] past year * ROS: G eneral/Constitutional: pain o nly normal aches and pains. C hills d enies.?Fatigue a dmits. F ever d enies. E NT: Decreased hearing d enies. R espiratory: Cough d enies. C ardiovascular: Chest pain with exertion d enies. D yspnea on exertion?denies. S hortness of breath d enies. G astrointestinal: Constipation d enies. D ecreased [...] Depressed mood d enies. * Medical History: B arretts esophagus without dysplasia, Clot in splenic veins, COPD (chronic obstructive pulmonary disease), Benign prostatic hypertrophy, Tobacco dependence, GERD, Thrombus splenic vein 2000, History of cardiac irregularity, Umbilical hernia, Hiatal hernia, Low back pain, History of carpal tunnel syndrome, Overweight, Right calf claudication, Osteomyelitis of the tibial stump right leg. * Surgical History: t onsillectomy age 6 , tracheotomy due to Krish's angina after dental work 1985, upper endoscopy and colonoscopy, [facility], Dr. Quinton Campos 2009, upper endoscopy, [facility], Dr. Quinton Campos, Palmer's esophagus 2013, arteriogram right lower extremity 05/2019, Right qkufo-iiz-ygir amputation 02-04-2024. * Hospitalization/Major Diagno stic Procedure: D mandeep Past Hospitalization. * Family History: F ather: 73 yrs, [...] healthy grandchildren. One of his siblings has Jheesyu-Nqnwj-Mwcfm disease. 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 He was born in [place], [place]. He came to [place] in 1984. He is with 6 children. He has 11 grandchildren. He is a of [employer]. He trained at [employer] and served in [employer]. * Medications: T aking Atorvastatin Calcium 10 MG Tablet Take 1 tablet by mouth once daily , Taking ASA 1 tab Oral , Taking Breo Ellipta 200-25 MCG/ACT Aerosol Powder Breath Activated INHALE 1 PUFF BY MOUTH ONCE DAILY Inhalation , Taking Albuterol Sulfate HFA 108 (90 Base) MCG/ACT Aerosol Solution INHALE 2 PUFFS BY MOUTH EVERY 4 TO 6 HOURS NEEDED FOR SHORTNESS OF BREATH OR WHEEZING Inhalation , Taking Gabapentin 400 MG Capsule 1 capsule Orally four times a day , Taking Tamsulosin HCl 0.4 MG Capsule 2 capsule Orally Once a day , Taking Pantoprazole Sodium 40 MG Tablet Delayed Release Take 2 tablets by mouth once daily , Taking Metoprolol Succinate ER 25 MG Tablet Extended Release 24 Hour 1 tablet Orally Once a day , Discontinued levoFLOXacin 750 MG Tablet Oral , Medication List reviewed and reconciled with the patient * Allergies: N o Known Drug Allergy, No Known Food Allergy. Objective: * Vitals: H t: 73, Wt:197, BMI:25.99, BP:145/91, HR:64, RR:15, Temp:100.1, Oxygen sat %:96, Ht-cm: [...] developed, in no acute distress, calm and relaxed. HEAD: a traumatic, normocephalic. EYES: e karina, [...] e xtremities unremarkable, no clubbing, cyanosis or edema. PERIPHERAL PULSES: n ormal. NEUROLOGIC: a lert and oriented, cranial nerves 2-12 grossly intact, deep tendon reflexes 2+ symmetrical, motor strength normal upper and lower extremities, sensory exam intact. PSYCH: a lert, oriented. Assessment: * Assessment: 1. C hronic osteomyelitis of right tibia with draining sinus - M86.461 N otes :He was recently hospitalized and underwent further surgery to try to cure the osteomyelitis. He is currently on an antibiotic. His pain is mild. Plan: * Treatment: 2. O thers Continue [...] 9 4760 MEASURE BLOOD OXYGEN LEVEL * Follow Up: 4 Weeks (Reason: OV) * Images: * The named appointment provid er may or may not be the originator of this progress note, and it is not deemed complete until electronically signed by the appointment provider. Sign off status: Pending * Provider: Angeles Callahan MD Date: Generated for Tristen bustamante/Jai/Allysonitting on: 03:57 PM EDT History and Physical Notes [...]
[2024-12-02 13:02] VITALS: BMI 25.5
--- NOTE | 2024-12-02 13:02 | A.OFFVIS_ITS ---
Vital Signs 12/02/24 13:02 Height 6 ft Weight 188 lb BMI 25.5 Intake Visit Reasons: 3 week follow up Intake Note: 3 week follow up Right BKA revision 10/10/24. [facility] coming out twice per week. They are starting to use collagen when the order comes in. RN told pt to relay that there is some tunneling to bone, pt also states he feels something is going on because of an increase in pain/tenderness, losing sleep at night Envelope Sealer Required: No Accompanied by: Self / Same As Patient Allergies No Known Allergies Allergy (Verified 12/02/24 13:08) HPI HPI 3 week follow up: Details: The patient is a 64-year-old male presenting for a routine wound check following a right below-knee amputation. The patient underwent a revision surgery on October 10, 2024, with no interval changes noted since then. He reports significant pain in the last few days, describing it as nerve-related and sore, particularly upon touch. The patient completed a course of antibiotics approximately three weeks ago but reports persistent soreness and warmth around the wound site. The nurse noted bone exposure, and the patient describes the area as warm and red, with increased drainage recently. The patient has been on various antibiotics previously, including levofloxacin, which caused nausea unless taken with food. He has been using yogurt and prebiotics to mitigate gastrointestinal side effects. [facility] Medical History Peripheral arterial disease Below-knee amputation of right lower extremity Osteomyelitis Krish angina Left bundle branch block Bakers cyst Nicotine dependence, cigarettes, uncomplicated Arthritis BPH (benign prostatic hyperplasia) Elevated cholesterol Complex regional pain syndrome i of right lower limb S/P angiogram of extremity (07/18/23) Atrial fibrillation History of Palmer's esophagus Splenic vein thrombosis History of femoral angiogram GERD (gastroesophageal reflux disease) COPD (chronic obstructive pulmonary disease) Surgical History Hx of BKA History of tonsillectomy Hx of oral surgery Hx of tracheostomy History of esophagogastroduodenoscopy (EGD) H/O colonoscopy Social History Household Members: Family and Children Household Members Other:: Son, son girlfriend, grandbaby Housing: Apartment Housing Other:: 3 stairs to climb Are you a primary manager career to a significant other at home: No Do you presently have visiting nurse or other home services: Yes Comment: Dr Knott made aware of absent pulse and sensation in right foot Patient Tobacco Use Status: Current everyday Tobacco user Tobacco use type: Cigarette Cigarette Packs Per Day: 1 Cigarettes Per Day: 20.0 Years Smoked: 50 e-Cigarette/Vaping Use: Never Used Second Hand Smoke Exposure: No Substance Use Type: Marijuana Advance Directives Date on File: 01/17/24 service: Yes Review of Systems Const All systems reviewed & are unremarkable except as noted in HPI and below Reports no additional complaints ENT Reports Normal hearing present Card Denies chest pain, Denies chest pain at rest, Denies chest pain with activity and Denies pedal edema Resp Denies cough GI Denies abdominal pain Musc Denies abnormal gait, Denies muscle cramps and Denies radiating pain into limb Skin/Breast Denies skin ulcer and Denies wounds Neuro Reports Normal hearing present and Denies abnormal gait Psych Reports no additional complaints Physical Exam Vital Signs: BMI result Body Mass Index 25.5 Const General: cooperative, healthy appearing and comfortable Orientation/consciousness: oriented to person, oriented to place and oriented to time HEENT Head: Yes normal to inspection Neck Neck: Yes normal visual inspection Carotids: no bruits Chest Chest palpation & inspection: normal inspection of the chest Resp Effort & Inspection: normal respiratory effort and able to speak in complete sentences Auscultation: clear to auscultation bilaterally, no crackles, no rales, no rhonchi and no wheezes Cardio Rate: regular rate Rhythm: regular rhythm Heart sounds: S1 normal heart sound present and S2 normal heart sound present Bruits: no carotid bruits Peripheral pulses: Peripheral pulses 2+ throughout GI Inspection: Yes normal to inspection Skin Other: Right BKA amp site has a 3.5 x 1.5 x 1.5 nonhealing incision line wound. In general good granulation base. In the stump there is some mild erythema. Wounds: wounds noted Hair: normal Neuro General: oriented to person, oriented to place and oriented to time Cranial nerves: Yes CN's II-XII intact bilaterally and Yes Normal hearing present Cognition (Neuro): normal cognition Motor exam (neuro): 5/5 motor strength present throughout Extrem Other: venous exam: No significant superficial varicosities or spider telangiectasias, minimal edema General: No clubbing, No cyanosis and No edema Psych Appearance: grossly normal Mental Status: mental status grossly normal Speech and movement: Normal speech and movement present Assessment & Plan Assessment & Plan (1) Peripheral arterial disease: Code(s): I73.9 - Peripheral vascular disease, unspecified Category: Medical Plan: In short patient is doing well with BKA. Fortunately part is we are not able to get the central portion to heal up. He has had a revision of this amp site continues to be nonhealing. There is once again some surrounding cellulitis. We will plan for p.o. antibiotics. In addition may be worthwhile to get infectious disease evaluation as well. Thank you for allowing us to assist in his care. If there are any questions or concerns please do not hesitate to contact us. Orders: Referrals Infectious Disease Referral L03.115 - Cellulitis of right lower limb Medications: New levofloxacin 500 mg PO DAILY 10 tabs 0RF Coding Level of Care Code Est Pt Level 4 (70749) Diagnoses Peripheral arterial disease I73.9
--- OUTSIDE RECORDS SUMMARY | 2024-12-02 15:57 | XMS_ITS | Clinical Summary ---
Author Organization [facility] Address [address] [place] [address] Phone Care Team Providers Care Custodial Officer Name Role Phone Quinton Callahan MD Primary Care Provider +1- [phone] Allergies No known active allergies Medications oxyCODONE-aceta [...] 2008 ZOSTER VACCINES (1 of 2) 2008 INFLUENZA VACCINE (#1) 2024 12/08/2023, 2015 COVID-19 VACCINE ( season) 2024 07/27/2020, 06/25/2020 CREATININE LEVEL 02/17/2025 02/18/2024, , 12/06/2023, Additional history exists SCREENING FOR DIABETES 02/17/2027 02/18/2024, 2023 LIPID PANEL 11/27/2028 11/28/2023 RSV VACCINE (1 - 1-dose 75+ series) 2033 HEPATITIS A VACCINES Aged Out No long [...] this topic Medical Devices Implanted Type Area Social Service Worker Device Identifier Shelf Expiration Date Model / Serial / Lot Graft Vascular 6.0mmx60 70cm Propaten Heparin [employer]med[employer] Bioactive Surface Thin Wall Removable Ring Stretch - [id number] Implanted:Qty: 1 on 12/02/2023 by Percy Segundo MD at [facility] STANDARD Right: Vein [employer] [id number] 08/13/2026 [id number] / [id number] / Metal Clip Celd Left Groin 10/2023 Stent Right Femoral Artery Patch Pericardium 2cm 9cm Decellularized Bovine [employer] - [id number] Implanted:Qty: 1 on 12/02/2023 by Percy Segundo MD at [facility] Right: Vein [employer] [id number] 03/24/2025 [id number] / / [id number] Procedures Procedure Name Priority Date/Time Associated Diagnosis Comments BASIC METABOLIC PANEL Routine 02/18/2024 8:01 AM EST Aftercare for amputation stump LIPID PANEL Routine 11/28/2023 1:21 AM EDT from Last 3 Months or Most Recently Relevant to Health Maintenance Results * (ABNORMAL) Basic metabolic panel (02/18/2024 8:01 AM EST) SODIUM 137 133 - 146 mmol/L [facility] CHLORIDE 102 96 - 108 mmol/L [facility] POTASSIUM 4.4 3.3 - 5.1 mmol/L [facility] CO2 25 21 - 35 mmol/L [facility] BUN 13 6 - 19 mg/dL [facility] CREATININE 0.70 0.5 - 1.5 mg/dL [facility] GLUCOSE 101(H) 70 - 99 mg/dL [facility] CALCIUM 9.7 8.4 - 10.3 mg/dL [facility] EGFR 102 >59 mL/min/1.7 3m2 [facility] Comment:Estimated glomerular filtration rate calculated using the CKD-EPI refit equation. ANION GAP 14 10 - 20 mmol/L [facility] Blood 02/18/2024 8:01 AM EST 02/18/2024 10:00 AM EST us Garrett Fletcher MD LAB BLOOD ORDERABLES Final Resul t [facility] [address] [place] [address] * Lipid panel (11/28/2023 1:21 AM EDT) CHOLESTEROL 125 <200 mg/dL [facility] TRIGLYCERIDES 60 35 - 150 mg/dL [facility] HDL 60 40 - 80 mg/dL [facility] CALCULATED LDL 53 50 - 129 mg/dL [facility] VLDL 12 <31 mg/dL [facility] CARDIAC RISK RATIO 2.1 0.0 - 4.0 [facility] Blood 11/28/2023 1:21 AM EDT 11/28/2023 1:35 AM EDT Ayla Owens PA-C LAB BLOOD ORDERABLES Clementina rossi Result [facility] [address] [place] [id number] from Last 3 Months or Most Recently Relevant to Health Maintenance Insurance [employer] PPO MEDICARE REPLACEMENT MEDICARE PART A & B [employer]ET[employer] [facility] MEDICARE REPLACEMENT MEDICARE PART A & B [employer] O MEDICARE REPLACEMENT MEDICARE PART A & B [employer] PPO MEDICARE REPLACEMENT MEDICARE PART A & B [facility] MEDICARE REPLACEMENT MEDICARE PART A & B [facility] MEDICARE REPLACEMENT MEDICARE PART A & B Advance Directives For more information, please contact: [phone] (9AM - 5PM Swati/[facility], Sunday-Sunday) * Full Code (Latest Code Status on File) Date Activated Date Inactivated Comments 11/27/2023 4:16 PM Question Answer Comments Code Status Confirmed With: Patient Care Teams Custodial Officer Relationship Specialty Start Date End Date Quinton Callahan MD [address] [place] [address] [address] [place] [address] PCP - General Medical Oncology 11/23/23 Additional Source Comments The information contained in this document represents components of the legal health record. It is not the complete legal health record.[facility]
--- OUTSIDE RECORDS SUMMARY | 2024-12-02 15:57 | XMS_ITS | Encounter Summary ---
Author Organization [facility] Address [address] [place] [address] [place] [address] Phone Care Team Providers Care Quality Facilitator Name Role Phone Quinton Callahan MD Primary Care Provider +1- [phone] Encounter Details Date Type Department Care Team (Late st Contact Info) Description 12/02/2023 Procedure Pass [facility] Periop [address] [place] [address] Social History Tobacco Use Types Packs/Day Years [...] on filedocumented in this encounter Care Teams Quality Facilitator Relationship Specialty Start Date End Date Quinton Callahan MD [address] [place] [address] [place] [address] PCP - General Medical Oncology 11/23/23 documented as of this encounter Additional Source Comments The information contained in this document represents components of the legal health record. It is not the complete legal health record.[facility]
--- OUTSIDE RECORDS SUMMARY | 2024-12-02 15:57 | XMS_ITS | Encounter Summary ---
Author Organization [facility] Address [address] [place] [address] [place] [address] Phone Care Team Providers Care Fertilizing Machine Operator Name Role Phone Quinton Callahan MD Primary Care Provider +1- [phone] Encounter Details Date Type Department Care Team (Late st Contact Info) Description 12/08/2023 Procedure Pass [facility] EKG [address] [place] [address] Social History Tobacco Use Types Packs/Day Years [...] on filedocumented in this encounter Care Teams Fertilizing Machine Operator Relationship Specialty Start Date End Date Quinton Callahan MD [address] [place] [address] [place] [address] PCP - General Medical Oncology 11/23/23 documented as of this encounter Additional Source Comments The information contained in this document represents components of the legal health record. It is not the complete legal health record.[facility]
--- OUTSIDE RECORDS SUMMARY | 2024-12-02 15:58 | XMS_ITS | Encounter Summary ---
Author Organization [facility] Address [address] [place] [address] [place] [address] Phone Care Team Providers Care Teacher Of Gifted Students Name Role Phone Quinton Callahan MD Primary Care Provider +1- [phone] Encounter Details Date Type Department Care Team (Late st Contact Info) Description 11/28/2023 Procedure Pass [facility] [address] [place] [address] Social History Tobacco Use Types Packs/Day Years [...] on filedocumented in this encounter Care Teams Teacher Of Gifted Students Relationship Specialty Start Date End Date Quinton Callahan MD [address] [place] [address] [place] [address] PCP - General Medical Oncology 11/23/23 documented as of this encounter Additional Source Comments The information contained in this document represents components of the legal health record. It is not the complete legal health record.[facility]
--- OUTSIDE RECORDS SUMMARY | 2024-12-02 15:58 | XMS_ITS | Encounter Summary ---
Author Organization [facility] Address [address] [place] [address] [place] [address] Phone Care Team Providers Care Tractor Trailer Moving Van Driver Name Role Phone Quinton Callahan MD Primary Care Provider +1- [phone] Encounter Details Date Type Department Care Team (Late st Contact Info) Description 11/28/2023 Procedure Pass [facility] [address] [place] [address] Social History Tobacco Use Types Packs/Day Years [...] on filedocumented in this encounter Care Teams Tractor Trailer Moving Van Driver Relationship Specialty Start Date End Date Quinton Callahan MD [address] [place] [address] [place] [address] PCP - General Medical Oncology 11/23/23 documented as of this encounter Additional Source Comments The information contained in this document represents components of the legal health record. It is not the complete legal health record.[facility]
--- OUTSIDE RECORDS SUMMARY | 2024-12-02 15:58 | XMS_ITS | Encounter Summary ---
Author Organization [facility] Address [address] [place] [address] [place] [address] Phone Care Team Providers Care Field Organizer Name Role Phone Quinton Callahan MD Primary Care Provider +1- [phone] Encounter Details Date Type Department Care Team (Late st Contact Info) Description 11/28/2023 Procedure Pass [facility] [address] [place] [address] Social History Tobacco Use Types Packs/Day Years [...] on filedocumented in this encounter Care Teams Field Organizer Relationship Specialty Start Date End Date Quinton Callahan MD [address] [place] [address] [place] [address] PCP - General Medical Oncology 11/23/23 documented as of this encounter Additional Source Comments The information contained in this document represents components of the legal health record. It is not the complete legal health record.[facility]
--- OUTSIDE RECORDS SUMMARY | 2024-12-02 15:58 | XMS_ITS | Patient Health Record ---
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 Quinton Callahan III Primary Care Provider Allergies Allergen (clinical drug ingredient) Drug/Non Drug Allergy documented on EMR Reaction Allergy Type Onset Date Status No Known Drug Allergy Unknown Drug Allergy Active No Known Food Allergy Unknown Drug Allergy Active Results Component Value Reference Range Notes Cancelled Chem Reviewed date:01/07/2024 01:28:15 PM Interpretation: Performing Lab:[facility], [address] [place] [address] Notes/Report: Cancelled Chem SEE NOTE NO SPECIMEN R ECEIVED FOR BUN AND CREAT US arterial duplex LE RT Reviewed date:01/24/2024 07:41:27 AM Interpretation: Performing Lab: Notes/Report: [address] [address] Ultrasound Report Signed Patient: Zan Encinas MR#: [id number] : 1960 Acct:[id number] Age/Sex: 63 / M ADM Date: 01/01/24 Loc: HO.US Attending Dr: Bimal Knott MD Ordering Physician: Sera Saxena PA-C Date of Service: 01/01/24 Procedure(s): US arterial duplex LE RT Accession Number(s): [id number] cc: Quinton Callahan MD; Sera Saxena PA-C [...] by: Coleman Chaidez MD 01/23/2024 01:03 PM [facility] Dictated By: Coleman Chaidez MD Signed By: <Electronically signed by Coleman Chaidez MD in OV> 01/23/24 1303 DD/ 1430 TD/TT: 01/01/24 1517 [address]: [address] [address] Ultrasound Report Signed Patient: Zan Encinas MR#: [id number] : 1960 Acct:[id number] Age/Sex: 63 / M ADM Date: 01/01/24 Loc: HO.US Attending Dr: Bimal Knott MD Ordering Physician: Sera Saxena PA-C Date of Service: 01/01/24 Procedure(s): US arterial duplex LE RT Accession Number(s): [id number] cc: Quinton Callahan MD; Sera Saxena PA-C [...] by: Coleman Chaidez MD 01/23/2024 01:03 PM [facility] Dictated By: Coleman Chaidez MD Signed By: <Electronically signed by Coleman Chaidez MD in OV> 01/23/24 1303 DD/ 1430 TD/TT: 01/01/24 1517 [address]: Complete Blood Count Auto Di ff Reviewed date:01/07/2024 01:28:15 PM Interpretation: Performing Lab:[address] [address] Notes/Report: White Blood Count 8.2 4.8-10.8 X10*3/uL [...] Drip Reviewed date:01/08/2024 08:33:39 AM Interpretation: Performing Lab:[facility], [address] [place] [address] Notes/Report: PTT Heparin Drip 33.9 53-77.9 SEC For information regarding the monitoring of heparin therapy, please refer to Pharmacy. Fibrinogen Reviewed date:01/08/2024 08:33:39 AM Interpretation: Performing Lab:[facility], [address] [place] [address] Notes/Report: Fibrinogen 465 259-690 MG/DL Blood Urea Nitrogen Reviewed date:01/07/2024 01:28:15 PM Interpretation: Performing Lab:[facility], [address] [place] [address] Notes/Report: Blood Urea Nitrogen 16 9-16 mg/dL Creatinine Reviewed date:01/07/2024 01:28:15 PM Interpretation: Performing Lab:[address] [address] Notes/Report: Creatinine 0.81 0.5-1.4 mg/dL Creatinine Clr Calc Pharmacy 99.7 eGFR (calculated from the MDRD study equation) and eCrCl (calculated from the Cockcroft-Gault equation) are based on different parameters and may not yield comparable results. If eCrCl result is absurd, please check patient's height/weight. Estimated Glomerular Filt Rate > 60 NOTE: For -Filipino individuals, multiply the result by 1.210. Chronic Kidney Disease: Estimated GFR < 60 mL/min/1.73m2 Severe Kidney Disease: Estimated GFR < 15 mL/min/1.73m2 ACT LR Reviewed date:01/16/2024 08:51:12 AM Interpretation: Performing Lab:[address] [address] Notes/Report: out of range low [id number] HO.MARUSA 0906 HO.MULVEC Fibrinogen Reviewed date:01/08/2024 08:33:39 AM Interpretation: Performing Lab:[address] [address] Notes/Report: Fibrinogen 445 259-690 MG/DL Complete Blood Count no Diff Reviewed date:01/10/2024 09:47:57 AM Interpretation: Performing Lab:[facility], [address] [place] [address] Notes/Report: White Blood Count 28.7 4.8-10.8 X10*3/uL [...] ff Reviewed date:01/08/2024 08:33:39 AM Interpretation: Performing Lab:[facility], [address] [place] [address] Notes/Report: White Blood Count 10.1 4.8-10.8 X10*3/uL [...] gy Reviewed date:01/08/2024 02:05:08 PM Interpretation: Performing Lab:[facility], [address] [place] [address] Notes/Report: Hold Lav - Possible Hematology SEE NOTE Specimen will be held untested for 8 hours. Call Hematology if testing is desired. PTT Heparin Drip Reviewed date:01/08/2024 08:33:39 AM Interpretation: Performing Lab:[facility], [address] [place] [address] Notes/Report: PTT Heparin Drip 40.9 53-77.9 SEC For information regarding the monitoring of heparin therapy, please refer to Pharmacy. Fibrinogen Reviewed date:01/08/2024 08:33:39 AM Interpretation: Performing Lab:[facility], [address] [place] [address] Notes/Report: Fibrinogen 432 259-690 MG/DL Basic Metabolic Panel Reviewed date:01/08/2024 08:33:39 AM Interpretation: Performing Lab:[facility], [address] [place] [address] Notes/Report: Sodium 138 135-145 mmol/L Potassium 3.8 [...] Phosphorus Reviewed date:01/08/2024 08:33:39 AM Interpretation: Performing Lab:[address] [address] Notes/Report: Phosphorus 2.9 2.7-4.5 mg/dL Magnesium Reviewed date:01/08/2024 08:33:39 AM Interpretation: Performing Lab:[address] [address] Notes/Report: Magnesium 1.8 1.6-2.6 mg/dL Albumin Level Reviewed date:01/08/2024 08:33:39 AM Interpretation: Performing Lab:[address] [address] Notes/Report: Albumin Level 3.2 3.5-5.0 g/dL ACT LR Reviewed date:01/11/2024 01:49:27 PM Interpretation: Performing Lab:[address] [address] Notes/Report: 109 [id number] HO.MARUSA 0846 HO.MULVEC ACT 109 79-173 Celite s Results are converted to a reference Celite ACT value in seconds. A reference interval is unavailable for ACT. Kathy Flores Reviewed date:01/08/2024 02:05:08 PM Interpretation: Performing Lab:[address] [address] Notes/Report: Kathy Flores See Note Specimen held untested for 24 hours; Call to request Chemistry testing. SLIDE REVIEW Reviewed date:01/08/2024 02:05:08 PM Interpretation: Performing Lab:[address] [address] Notes/Report: SLIDE REVIEW VERIFIED Type and Screen Reviewed date:01/11/2024 01:49:26 PM Interpretation: Performing Lab:[facility], [address] [place] [address] Notes/Report: Results at Issue Units as of [...] by JONAS on 01/10/24 at 1918 by OBRIS. mL/HR Rate to transfuse BBK Product 100 [...] Date Time Test Result Flag Normal Range 11/14/24 1944 HGB 3.3 *L 14.0-18.0 g/dl Results of [...] 0500 HGB PENDING RECEIPT 14.0-18.0 g/dl 01/11/24 011 HGB 6.7 #*L 14.0-18.0 g/dl Results of HEMOGLOBIN called to and read back by SARTHAK on 01/11/24 at 0122 by JEWELS. 01/11/24 0500 HCT PENDING RECEIPT 42.0-52.0 % 01/11/24109 HCT 18.7 #*L 42.0-52.0 % Results of HEMATOCRIT called to and read back by SARTAHK on 01/11/24 at 0123 by JEWELS. MTP MTP None available No Blood Type OP Antibody Screen NEGATIVE Red Blood Cells Reviewed date:01/11/2024 01:49:26 PM Interpretation: Performing Lab:[facility], [address] [place] [address] Notes/Report: Red Blood Cells [id number] ON RC Red Blood Cells TRANSFUSED 01/09/24 0929 Red Blood Cells [id number] OP RC Red Blood Cells TRANSFUSED 01/09/24 1520 Red Blood Cells [id number] OP RC Red Blood Cells TRANSFUSED 01/10/24 0154 Red Blood Cells [id number] OP RC Red Blood Cells TRANSFUSED 01/10/24 1938 Red Blood Cells [id number] OP RC Red Blood Cells TRANSFUSED 01/10/242025 Red Blood Cells [id number] OP RC Red Blood Cells TRANSFUSED 01/10/24 2156 Red Blood Cells [id number] OP RC Red Blood Cells TRANSFUSED 01/10/242025 Red Blood Cells [id number] OP RC Red Blood Cells TRANSFUSED 01/11/24 0159 Red Blood Cells [id number] OP RC Red Blood Cells TRANSFUSED 01/11/24 0159 Arterial Blood Gases - POC Reviewed date:01/08/2024 02:05:08 PM Interpretation: Performing Lab:[facility], [address] [place] [address] Notes/Report: ABG pH 7.42 7.35-7.45 METER #: [id number] additional_comment: Cbgreavet ctrbpavlova ABG pCO2 34 32-45 mmHg METER #: [id number] additional_comment: Cbgreavet ctrbpavlova ABG pO2 95 83-108 mmHg METER #: [id number] additional_comment: Cbgreavet ctrbpavlova ABG Base Excess -1.2 METER #: [id number] additional_comment: Cbgreavet ctrbpavlova ABG HCO3 22 22-26 mmol/L METER #: [id number] additional_comment: Cbgreavet ctrbpavlova ABG O2 % Saturation 99.0 METER #: [id number] additional_comment: Cbgreavet ctrbpavlova Pheresis Platelets Reviewed date:01/11/2024 01:49:27 PM Interpretation: Performing Lab:[facility], [address] [place] [address] Notes/Report: Pheresis Platelets [id number] OP PHPLT Pheresis Platelets TRANSFUSED 01/11/24 0133 Hold Green Gel Reviewed date:01/08/2024 02:05:08 PM Interpretation: Performing Lab:[facility], [address] [place] [address] Notes/Report: Hold Green Gel See Note Specimen held untested for 24 hours; Call to request Chemistry testing. Fresh Frozen Plasma Reviewed date:01/11/2024 01:49:27 PM Interpretation: Performing Lab:[facility], [address] [place] [address] Notes/Report: Fresh Frozen Plasma [id number] AP FFP Fresh Frozen Plasma TRANSFUSED 01/11/24 0159 Fresh Frozen Plasma [id number] OP FFP Fresh Frozen Plasma TRANSFUSED 01/10/[address] abdomen pelvis w con Reviewed date:01/08/2024 02:05:08 PM Interpretation: Performing Lab: Notes/Report: [address] [address] [address] Scan Report Signed Patient: Zan Encinas MR#: [id number] : 1960 Acct:[id number] Age/Sex: 63 / M ADM Date: 01/07/24 Loc: [facility] 255-[address]: Bimal Knott MD Ordering Physician: Sawyer Case MD Date of Service: 01/08/24 Procedure(s): CT abdomen pelvis w IV con Accession Number(s): [id number] cc: Quinton Callahan MD; Sawyer Case MD [...] right superficial femoral vein. There are likely Free[place]-Ariel bypass femoral, bilaterally.. OSSEOUS STRUCTURES: Multilevel thoracolumbar [...] by: Theo Stern MD 01/08/2024 12:21 PM [facility] Dictated By: Theo Lagunas MD Signed By: <Electronically signed by Theo Steven MD in OV> 01/08/24 1221 DD/ 1105 TD/TT: 01/08/24 [address]: [place] [address] [address] Scan Report Signed Patient: Zan Encinas MR#: [id number] : 1960 Acct:[id number] Age/Sex: 63 / M ADM Date: 01/07/24 Loc: [facility] 255-[address]: Bimal Knott MD Ordering Physician: Sawyer Case MD Date of Service: 01/08/24 Procedure(s): CT abd omen pelvis w IV con Accession Number(s): [id number] cc: Quinton Callahan MD; Sawyer Case MD [...] right superficial femoral vein. There are likely Free[place]-Ariel bypass femoral, bilaterally.. OSSEOUS STRUCTURES: Multilevel thoracolumbar [...] 01/08/24 1221 DD/ 1105 TD/TT: 01/08/24 1125 [address]: Fibrinogen Reviewed date:01/08/2024 08:33:39 AM Interpretation: Performing Lab:[facility], [address] [place] [address] Notes/Report: Fibrinogen 441 259-690 MG/DL Complete Blood Count Auto Di ff Reviewed date:01/08/2024 02:05:08 PM Interpretation: Performing Lab:[facility], [address] [place] [address] Notes/Report: White Blood Count 20.0 4.8-10.8 X10*3/uL [...] Drip Reviewed date:01/08/2024 02:05:08 PM Interpretation: Performing Lab:[facility], [address] [place] [address] Notes/Report: PTT Heparin Drip > 200.0 53-77.9 SEC Results of PTT-HD called to and read back by MARIELA on 01/08/24 at 1155 by FROY. For information regarding the monitoring of heparin therapy, please refer to Pharmacy. Basic Metabolic Panel Reviewed date:01/10/2024 09:47:57 AM Interpretation: Performing Lab:[facility], [address] [place] [address] Notes/Report: Sodium 134 135-145 mmol/L Potassium 4.9 [...] Phosphorus Reviewed date:01/10/2024 09:47:57 AM Interpretation: Performing Lab:[facility], [address] [place] [address] Notes/Report: Phosphorus 4.1 2.7-4.5 mg/dL Magnesium Reviewed date:01/10/2024 09:47:57 AM Interpretation: Performing Lab:[facility], [address] [place] [address] Notes/Report: Magnesium 1.9 1.6-2.6 mg/dL Complete Blood Count Auto Di ff Reviewed date:01/10/2024 09:47:57 AM Interpretation: Performing Lab:[facility], [address] [place] [address] Notes/Report: White Blood Count 21.8 4.8-10.8 X10*3/uL [...] REVIEW Reviewed date:01/10/2024 09:47:57 AM Interpretation: Performing Lab:[facility], [address] [place] [address] Notes/Report: SLIDE REVIEW VERIFIED ACT LR Reviewed date:01/11/2024 01:49:27 PM Interpretation: Performing Lab:[facility], [address] [place] [address] Notes/Report: 203 [id number] HOASHLEY 0855 mulvec ACT 203 79-173 Celite s Results are converted to a reference Celite ACT value in seconds. A reference interval is unavailable for ACT. Complete Blood Count Auto Di ff Reviewed date:01/10/2024 09:47:57 AM Interpretation: Performing Lab:[facility], [address] [place] [address] Notes/Report: White Blood Count 16.7 4.8-10.8 X10*3/uL [...] gy Reviewed date:01/10/2024 09:47:57 AM Interpretation: Performing Lab:[address] [address] Notes/Report: Hold Lav - Possible Hematology SEE NOTE Specimen will be held untested for 8 hours. Call Hematology if testing is desired. Prothrombin Time INR Reviewed date:01/10/2024 09:47:57 AM Interpretation: Performing Lab:[facility], [address] [place] [address] Notes/Report: Prothrombin Time 11.5 10.9-12.4 SEC INTERNATIONAL [...] Drip Reviewed date:01/10/2024 09:47:57 AM Interpretation: Performing Lab:[address] [address] Notes/Report: PTT Heparin Drip 28.1 53-77.9 SEC For information regarding the monitoring of heparin therapy, please refer to Pharmacy. Basic Metabolic Panel Reviewed date:01/10/2024 09:47:57 AM Interpretation: Performing Lab:[address] [address] Notes/Report: Sodium 136 135-145 mmol/L Potassium 4.5 [...] Phosphorus Reviewed date:01/10/2024 09:47:57 AM Interpretation: Performing Lab:[address] [address] Notes/Report: Phosphorus 4.0 2.7-4.5 mg/dL Magnesium Reviewed date:01/10/2024 09:47:57 AM Interpretation: Performing Lab:[address] [address] Notes/Report: Magnesium 1.9 1.6-2.6 mg/dL Albumin Level Reviewed date:01/10/2024 09:47:57 AM Interpretation: Performing Lab:[address] [address] Notes/Report: Albumin Level 3.2 3.5-5.0 g/dL SLIDE REVIEW Reviewed date:01/10/2024 09:47:57 AM Interpretation: Performing Lab:[address] [address] Notes/Report: SLIDE REVIEW VERIFIED Complete Blood Count Auto Di ff Reviewed date:01/10/2024 09:47:57 AM Interpretation: Performing Lab:[address] [address] Notes/Report: White Blood Count 10.8 4.8-10.8 X10*3/uL [...] Drip Reviewed date:01/10/2024 09:47:57 AM Interpretation: Performing Lab:[facility], [address] [place] [address] Notes/Report: PTT Heparin Drip 34.2 53-77.9 SEC For information regarding the monitoring of heparin therapy, please refer to Pharmacy. Complete Blood Count Auto Di ff Reviewed date:01/10/2024 09:47:57 AM Interpretation: Performing Lab:[facility], [address] [place] [address] Notes/Report: White Blood Count 8.4 4.8-10.8 X10*3/uL [...] Panel Reviewed date:01/10/2024 09:47:57 AM Interpretation: Performing Lab:[facility], [address] [place] [address] Notes/Report: Sodium 135 135-145 mmol/L Potassium 4.5 [...] Phosphorus Reviewed date:01/10/2024 09:47:57 AM Interpretation: Performing Lab:[facility], [address] [place] [address] Notes/Report: Phosphorus 3.0 2.7-4.5 mg/dL Magnesium Reviewed date:01/10/2024 09:47:57 AM Interpretation: Performing Lab:[facility], [address] [place] [address] Notes/Report: Magnesium 2.2 1.6-2.6 mg/dL PTT Heparin Drip Reviewed date:01/10/2024 09:47:57 AM Interpretation: Performing Lab:[facility], [address] [place] [address] Notes/Report: PTT Heparin Drip 55.2 53-77.9 SEC For information regarding the monitoring of heparin therapy, please refer to Pharmacy. Complete Blood Count Auto Di ff Reviewed date:01/10/2024 09:47:57 AM Interpretation: Performing Lab:[facility], [address] [place] [address] Notes/Report: White Blood Count 9.2 4.8-10.8 X10*3/uL [...] Hematocrit Reviewed date:01/11/2024 01:49:27 PM Interpretation: Performing Lab:[address] [address] Notes/Report: Hemoglobin 3.3 14.0-18.0 g/dl Results of HGB called to and read back by JONAS on 01/10/24 at 1959 by BORIS. Hematocrit 9.9 42.0-52.0 % Results of HCT called to and read back by JONAS on 01/10/24 at 2001 by BORIS. Pathologist Review - CBC Reviewed date:01/11/2024 01:49:26 PM Interpretation: Performing Lab:[facility], [address] [place] [address] Notes/Report: Pathologist Review - CBC SEE NOTE Normochromic normocytic anemia. - Javi Farias M.D. Pathology Prothrombin Time INR Reviewed date:01/10/2024 09:47:57 AM Interpretation: Performing Lab:[address] [address] Notes/Report: Prothrombin Time 12.1 10.9-12.4 SEC INTERNATIONAL [...] Drip Reviewed date:01/10/2024 09:47:57 AM Interpretation: Performing Lab:[facility], [address] [place] [address] Notes/Report: PTT Heparin Drip 44.5 53-77.9 SEC For information regarding the monitoring of heparin therapy, please refer to Pharmacy. Comprehensive Met. Panel Reviewed date:01/11/2024 01:49:27 PM Interpretation: Performing Lab:[facility], [address] [place] [address] Notes/Report: Sodium 135 135-145 mmol/L Potassium 4.9 [...] Panel Reviewed date:01/10/2024 09:47:57 AM Interpretation: Performing Lab:[facility], [address] [place] [address] Notes/Report: Sodium 136 135-145 mmol/L Potassium 4.1 [...] Acid Reviewed date:01/11/2024 01:49:27 PM Interpretation: Performing Lab:[facility], [address] [place] [address] Notes/Report: Lactic Acid 7.8 0.5-2.0 mmol/L Critical value for test(s): LACTA Results called to and read back by:VIKRAM Person calling: TANG Date:01-10-2024 Time:2121 Phosphorus Reviewed date:01/10/2024 09:47:57 AM Interpretation: Performing Lab:[facility], [address] [place] [address] Notes/Report: Phosphorus 2.8 2.7-4.5 mg/dL Magnesium Reviewed date:01/10/2024 09:47:57 AM Interpretation: Performing Lab:[facility], [address] [place] [address] Notes/Report: Magnesium 2.0 1.6-2.6 mg/dL Albumin Level Reviewed date:01/10/2024 09:47:57 AM Interpretation: Performing Lab:[facility], [address] [place] [address] Notes/Report: Albumin Level 3.5 3.5-5.0 g/dL Lactic Acid-LAB USE ONLY Reviewed date:01/11/2024 01:49:27 PM Interpretation: Performing Lab:[facility], [address] [place] [address] Notes/Report: Lactic Acid-LAB USE ONLY 1.9 0.5-2.0 mmol/L Venous Blood Gases - POC Reviewed date:01/11/2024 01:49:27 PM Interpretation: Performing Lab:[facility], [address] [place] [address] Notes/Report: VBG pH 7.42 7.32-7.43 METER #: [id number] 0250C VBG pCO2 25 METER #: [id number] 0250C VBG pO2 76 METER #: [id number] 0250C VBG Base Excess -6.7 METER #: [id number] VBG HCO3 16 22-26 mmol/L METER #: [id number] 0250C VBG O2 % Saturation TNP Hold Green Gel Reviewed date:01/11/2024 01:49:27 PM Interpretation: Performing Lab:[facility], [address] [place] [address] Notes/Report: Hold Green Gel See Note Specimen held untested for 24 hours; Call to request Chemistry testing. CT abdomen pelvis w con Reviewed date:01/11/2024 01:49:27 PM Interpretation: Performing Lab: Notes/Report: [address] [address] [address] Scan Report Signed Patient: Zan Encinas MR#: [id number] : 1960 Acct:[id number] Age/Sex: 63 / M ADM Date: 01/07/24 Loc: [facility] 255-[address]: Bimal Knott MD Ordering Physician: Som Vela NP Date of Service: 01/10/24 Procedure(s): CT abdomen pelvis w IV con Accession Number(s): [id number] cc: Quinton Callahan MD; Som Vela NP [...] by: Jarret Ferrara MD 01/10/2024 10:00 PM [facility] Dictated By: Jarret Ferrara MD Signed By: <Electronically signed by Jarret Ferrara MD in OV> 01/10/242199 DD/ 21 TD/TT: 01/10/242021 [address] Net: [place] [address] [address] Scan Report Signed Patient: Zan Encinas MR#: [id number] : 1960 Acct:[id number] Age/Sex: 63 / M ADM Date: 01/07/24 Loc: [facility] 255-[address]: Bimal Knott MD Ordering Physician: Som Vela NP Date of Service: 01/10/24 Procedure(s): CT abd omen pelvis w IV con Accession Number(s): [id number] cc: Quinton Callahan MD; Som Vela NP [...] by: Jarret Ferrara MD 01/10/2024 10:00 PM [facility] Dictated By: Jarret Ferrara MD Signed By: <Electronically signed by Jarret Ferrara MD in OV> 01/10/242199 DD/ 21 TD/TT: 01/10/242021 [address]: PTT Heparin Drip Reviewed date:01/11/2024 01:49:27 PM Interpretation: Performing Lab:[facility], [address] [place] [address] Notes/Report: PTT Heparin Drip 80.2 53-77.9 SEC For information regarding the monitoring of heparin therapy, please refer to Pharmacy. PTT Heparin Drip Reviewed date:01/11/2024 01:49:27 PM Interpretation: Performing Lab:[facility], [address] [place] [address] Notes/Report: PTT Heparin Drip 66.0 53-77.9 SEC For information regarding the monitoring of heparin therapy, please refer to Pharmacy. Complete Blood Count Auto Di ff Reviewed date:01/11/2024 01:49:26 PM Interpretation: Performing Lab:[facility], [address] [place] [address] Notes/Report: White Blood Count 17.6 4.8-10.8 X10*3/uL [...] Diff Reviewed date:01/12/2024 07:43:31 AM Interpretation: Performing Lab:[facility], [address] [place] [address] Notes/Report: White Blood Count 12.3 4.8-10.8 X10*3/uL [...] ff Reviewed date:01/11/2024 01:49:26 PM Interpretation: Performing Lab:[facility], [address] [place] [address] Notes/Report: White Blood Count 18.2 4.8-10.8 X10*3/uL [...] Panel Reviewed date:01/11/2024 01:49:26 PM Interpretation: Performing Lab:[facility], [address] [place] [address] Notes/Report: Sodium 135 135-145 mmol/L Potassium 4.6 [...] Phosphorus Reviewed date:01/11/2024 01:49:26 PM Interpretation: Performing Lab:[facility], [address] [place] [phone] Notes/Report: Phosphorus 4.3 2.7-4.5 mg/dL Magnesium Reviewed date:01/11/2024 01:49:26 PM Interpretation: Performing Lab:[facility], [address] [place] [phone] Notes/Report: Magnesium 2.2 1.6-2.6 mg/dL Albumin Level Reviewed date:01/11/2024 01:49:26 PM Interpretation: Performing Lab:[facility], [address] [place] [phone] Notes/Report: Albumin Level 3.6 3.5-5.0 g/dL SLIDE REVIEW Reviewed date:01/11/2024 01:49:26 PM Interpretation: Performing Lab:[facility], [address] [place] [phone] Notes/Report: SLIDE REVIEW VERIFIED Venous Blood Gases - POC Reviewed date:01/11/2024 01:49:26 PM Interpretation: Performing Lab:[facility], [address] [place] [phone] Notes/Report: VBG pH 7.49 7.32-7.43 METER #: [id number] additional_comment: Jeovany saucedo VBG pCO2 35 METER #: [id number] additional_comment: Jeovany saucedo VBG pO2 57 METER #: [id number] additional_comment: Cb crochia ctrbb henriquezc VBG Base Excess 4.0 METER #: [id number] additional_comment: Jeovany aguilarbb henriquezc VBG HCO3 27 22-26 mmol/L METER #: [id number] additional_comment: Jeovany aguilarbb henriquezc VBG O2 % Saturation 92.0 METER #: [id number] additional_comment: Jeovany stevenson henriquemarek Venous Blood Gases - POC Reviewed date:01/11/2024 01:49:26 PM Interpretation: Performing Lab:[address] [address] Notes/Report: VBG pH 7.42 7.32-7.43 METER #: [id number] additional_comment: Jeovany aguilarbb henriquezc VBG pCO2 42 METER #: [id number] additional_comment: Jeovany aguilarbb henriquezc VBG pO2 35 METER #: [id number] additional_comment: Jeovany stevenson henriquezc VBG Base Excess 3.7 METER #: [id number] additional_comment: Jeovany stevenson henriquezc VBG HCO3 28 22-26 mmol/L METER #: [id number] additional_comment: Jeovany aguilarbb henriquezc VBG O2 % Saturation 62.0 METER #: [id number] additional_comment: Jeovany aguilarbb henriquezc Complete Blood Count Auto Di ff Reviewed date:01/11/2024 01:49:26 PM Interpretation: Performing Lab:[address] [address] Notes/Report: White Blood Count 14.9 4.8-10.8 X10*3/uL [...] ff Reviewed date:01/11/2024 08:19:34 PM Interpretation: Performing Lab:[facility], [address] [place] [address] Notes/Report: White Blood Count 14.3 4.8-10.8 X10*3/uL [...] REVIEW Reviewed date:01/11/2024 08:19:34 PM Interpretation: Performing Lab:[facility], [address] [place] [address] Notes/Report: SLIDE REVIEW VERIFIED Basic Metabolic Panel Reviewed date:01/12/2024 07:43:31 AM Interpretation: Performing Lab:[facility], [address] [place] [address] Notes/Report: Sodium 133 135-145 mmol/L Potassium 4.0 [...] Phosphorus Reviewed date:01/12/2024 07:43:31 AM Interpretation: Performing Lab:[facility], [address] [place] [address] Notes/Report: Phosphorus 2.7 2.7-4.5 mg/dL Magnesium Reviewed date:01/12/2024 07:43:31 AM Interpretation: Performing Lab:[facility], [address] [place] [address] Notes/Report: Magnesium 2.4 1.6-2.6 mg/dL Complete Blood Count no Diff Reviewed date:01/13/2024 07:58:52 PM Interpretation: Performing Lab:[facility], [address] [place] [address] Notes/Report: White Blood Count 11.9 4.8-10.8 X10*3/uL [...] ff Reviewed date:01/12/2024 07:43:31 AM Interpretation: Performing Lab:[address] [address] Notes/Report: White Blood Count 11.0 4.8-10.8 X10*3/uL [...] Panel Reviewed date:01/12/2024 07:43:31 AM Interpretation: Performing Lab:[facility], [address] [place] [address] Notes/Report: Sodium 139 135-145 mmol/L Potassium 3.9 [...] Phosphorus Reviewed date:01/12/2024 07:43:31 AM Interpretation: Performing Lab:[facility], [address] [place] [address] Notes/Report: Phosphorus 2.8 2.7-4.5 mg/dL Magnesium Reviewed date:01/12/2024 07:43:31 AM Interpretation: Performing Lab:[facility], [address] [place] [address] Notes/Report: Magnesium 2.3 1.6-2.6 mg/dL SLIDE REVIEW Reviewed date:01/12/2024 07:43:31 AM Interpretation: Performing Lab:[facility], [address] [place] [address] Notes/Report: SLIDE REVIEW VERIFIED Venous Blood Gases - POC Reviewed date:01/12/2024 07:43:31 AM Interpretation: Performing Lab:[facility], [address] [place] [address] Notes/Report: VBG pH 7.41 7.32-7.43 METER #: [id number] additional_comment: Jeovany burgess ctrbb henric VBG pCO2 47 METER #: [id number] additional_comment: Jeovany burgess ctrbb henric VBG pO2 34 METER #: [id number] additional_comment: Jeovany burgess ctrbb henric VBG Base Excess 5.9 METER #: [id number] additional_comment: Jeovany burgess ctrbb henric VBG HCO3 31 22-26 mmol/L METER #: [id number] additional_comment: Jeovany burgess ctrbb henric VBG O2 % Saturation 56.0 METER #: [id number] additional_comment: Jeovany burgess ctrbb henric Complete Blood Count Auto Di ff Reviewed date:01/12/2024 07:43:31 AM Interpretation: Performing Lab:[facility], [address] [place] [address], [place] [address] Notes/Report: White Blood Count 10.7 4.8-10.8 X10*3/uL [...] ff Reviewed date:01/13/2024 07:58:52 PM Interpretation: Performing Lab:[facility], [address] [place] [address] Notes/Report: White Blood Count 11.2 4.8-10.8 X10*3/uL [...] Diff Reviewed date:01/13/2024 07:58:52 PM Interpretation: Performing Lab:[facility], [address] [place] [address] Notes/Report: White Blood Count 12.6 4.8-10.8 X10*3/uL [...] ff Reviewed date:01/13/2024 07:58:52 PM Interpretation: Performing Lab:[facility], [address] [place] [address] Notes/Report: White Blood Count 11.1 4.8-10.8 X10*3/uL [...] Panel Reviewed date:01/13/2024 07:58:52 PM Interpretation: Performing Lab:[facility], [address] [place] [address] Notes/Report: Sodium 137 135-145 mmol/L Potassium 3.8 [...] Phosphorus Reviewed date:01/13/2024 07:58:52 PM Interpretation: Performing Lab:[facility], [address] [place] [address] Notes/Report: Phosphorus 3.0 2.7-4.5 mg/dL Magnesium Reviewed date:01/13/2024 07:58:52 PM Interpretation: Performing Lab:[facility], [address] [place] [address] Notes/Report: Magnesium 2.3 1.6-2.6 mg/dL Albumin Level Reviewed date:01/13/2024 07:58:52 PM Interpretation: Performing Lab:[facility], [address] [place] [address] Notes/Report: Albumin Level 3.5 3.5-5.0 g/dL SLIDE REVIEW Reviewed date:01/13/2024 07:58:52 PM Interpretation: Performing Lab:[facility], [address] [place] [address] Notes/Report: SLIDE REVIEW VERIFIED Venous Blood Gases - POC Reviewed date:01/13/2024 07:58:52 PM Interpretation: Performing Lab:[facility], [address] [place] [address] Notes/Report: VBG pH 7.46 7.32-7.43 METER #: [id number] additional_comment: Jeovany aguilarbb henric VBG pCO2 37 METER #: [id number] additional_comment: Jeovany martinez ctrbb henric VBG pO2 55 METER #: [id number] additional_comment: Jeovany martinez ctrbb henric VBG Base Excess 3.2 METER #: [id number] additional_comment: Jeovany martinez ctrbb henric VBG HCO3 27 22-26 mmol/L METER #: [id number] additional_comment: Jeovany martinez ctrbb henric VBG O2 % Saturation 87.0 METER #: [id number] additional_comment: Jeovany martinez ctrbb henric Complete Blood Count Auto Di ff Reviewed date:01/13/2024 07:58:52 PM Interpretation: Performing Lab:[facility], [address] [place] [address] Notes/Report: White Blood Count 12.6 4.8-10.8 X10*3/uL [...] ff Reviewed date:01/15/2024 06:02:02 AM Interpretation: Performing Lab:[facility], [address] [place] [address] Notes/Report: White Blood Count 13.1 4.8-10.8 X10*3/uL [...] ff Reviewed date:01/15/2024 06:02:02 AM Interpretation: Performing Lab:[facility], [address] [place] [address] Notes/Report: White Blood Count 12.1 4.8-10.8 X10*3/uL [...] Hematocrit Reviewed date:01/15/2024 06:02:02 AM Interpretation: Performing Lab:[facility], [address] [place] [address] Notes/Report: Hemoglobin 7.9 14.0-18.0 g/dl Hematocrit 23.5 42.0-52.0 % Basic Metabolic Panel Reviewed date:01/15/2024 06:02:02 AM Interpretation: Performing Lab:[facility], [address] [place] [address] Notes/Report: Sodium 136 135-145 mmol/L Potassium 3.8 [...] Phosphorus Reviewed date:01/15/2024 06:02:02 AM Interpretation: Performing Lab:[facility], [address] [place] [address] Notes/Report: Phosphorus 2.8 2.7-4.5 mg/dL Magnesium Reviewed date:01/15/2024 06:02:02 AM Interpretation: Performing Lab:[facility], [address] [place] [address] Notes/Report: Magnesium 2.2 1.6-2.6 mg/dL Albumin Level Reviewed date:01/15/2024 06:02:02 AM Interpretation: Performing Lab:[facility], [address] [place] [address] Notes/Report: Albumin Level 3.4 3.5-5.0 g/dL SLIDE REVIEW Reviewed date:01/15/2024 06:02:02 AM Interpretation: Performing Lab:[facility], [address] [place] [address] Notes/Report: SLIDE REVIEW VERIFIED Complete Blood Count no Diff Reviewed date:01/16/2024 08:51:12 AM Interpretation: Performing Lab:[facility], [address] [place] [address] Notes/Report: White Blood Count 12.7 4.8-10.8 X10*3/uL [...] Diff Reviewed date:01/16/2024 08:51:12 AM Interpretation: Performing Lab:[facility], [address] [place] [address] Notes/Report: White Blood Count 9.9 4.8-10.8 X10*3/uL [...] Panel Reviewed date:01/17/2024 05:05:01 AM Interpretation: Performing Lab:[facility], [address] [place] [address] Notes/Report: Sodium 135 135-145 mmol/L Potassium 4.2 [...] Magnesium Reviewed date:01/17/2024 05:05:01 AM Interpretation: Performing Lab:[facility], [address] [place] [address] Notes/Report: Magnesium 2.3 1.6-2.6 mg/dL Complete Blood Count Auto Di ff Reviewed date:01/18/2024 08:33:04 PM Interpretation: Performing Lab:[facility], [address] [place] [address] Notes/Report: White Blood Count 12.0 4.8-10.8 X10*3/uL [...] te Reviewed date:01/18/2024 08:33:04 PM Interpretation: Performing Lab:[address] [address] Notes/Report: Erythrocyte Sedimentation Rate 92 0-15 MM/HR Patients with polycythemia and many hemoglobin abnormalities may have depressed sed rates whereas patients with anemia may have elevated sed rates. Prothrombin Time INR Reviewed date:01/18/2024 08:33:04 PM Interpretation: Performing Lab:[address] [address] Notes/Report: Prothrombin Time 13.4 10.9-12.4 SEC INTERNATIONAL [...] Panel Reviewed date:01/18/2024 08:33:04 PM Interpretation: Performing Lab:[facility], [address] [place] [address] Notes/Report: Sodium 134 135-145 mmol/L Potassium 4.2 [...] Acid Reviewed date:01/18/2024 08:33:04 PM Interpretation: Performing Lab:[facility], [address] [place] [address] Notes/Report: Lactic Acid 1.3 0.5-2.0 mmol/L C Reactive Protein Reviewed date:01/18/2024 08:33:04 PM Interpretation: Performing Lab:[facility], [address] [place] [address] Notes/Report: C Reactive Protein 14.10 < or = 0.50 mg/dL Lipase Reviewed date:01/18/2024 08:33:04 PM Interpretation: Performing Lab:[facility], [address] [place] [address] Notes/Report: Lipase 24 8-78 U/L SLIDE REVIEW Reviewed date:01/18/2024 08:33:04 PM Interpretation: Performing Lab:[facility], [address] [place] [address] Notes/Report: SLIDE REVIEW VERIFIED Blood Culture (First) Reviewed date:01/24/2024 07:41:27 AM Interpretation: Performing Lab:[facility], [address] [place] [address] Notes/Report: Blood Culture (First) No growth after 5 days. Blood Culture (Second) Reviewed date:01/24/2024 07:41:27 AM Interpretation: Performing Lab:[facility], [address] [place] [address] Notes/Report: Blood Culture (Second) No growth after 5 days. US arterial duplex LE RT Reviewed date:01/21/2024 07:35:28 AM Interpretation: Performing Lab: Notes/Report: [address] [address] Ultrasound Report Signed with Addenda Patient: Zan Encinas MR#: [id number] : 1960 Acct:[id number] Age/Sex: 63 / M ADM Date: 01/18/24 Loc: .ED Attending Dr: Ordering Physician: Yuriy Dunbar Date of Service: 01/18/24 Procedure(s): US arterial duplex LE RT Accession Number(s): [id number] cc: Quinton Callahan MD; Yuriy Dunbar ADDENDUM ADDENDUM #1 Findings were communicated by telephone with Dr. Gerard by Dr. Zarate at 2034 hours. Electronically signed by: Placido Zarate MD 01/18/2024 08:41 PM [facility] Addendum Dictated By: Yuriy Zarate MD [...] by: Placido Zarate MD 01/18/2024 08:33 PM [facility] Dictated By: Yuriy Zarate MD Signed By: <Electronically signed by Yuriy Zarate MD in OV> 01/18/242032 DD/ 02 TD/TT: 01/18/241505 [address]: [place] [address] Ultrasound Report Signed with Addenda Patient: Zan Encinas MR#: [id number] : 1960 Acct:[id number] Age/Sex: 63 / M ADM Date: 01/18/24 Loc: .ED Attending Dr: Ordering Physician: Yuriy Dunbar Date of Service: 01/18/24 Procedure(s): US arterial duplex LE RT Accession Number(s): [id number] cc: Quinton Callahan MD; Yuriy Dunbar ADDENDUM ADDENDUM #1 Findings were communicated by telephone with Dr. Gerard by Dr. Zarate at 4 hours. Electronically ivania d by: Placido Zarate MD 01/18/2024 08:41 PM EST RP Addendum Dictated By : Yuriy Zaarte MD Addendum Signed By: <Electronically signed by [...] in OV> 01/18/242032 DD/ 02 TD/TT: 01/18/241505 [address]: [place] XR foot RT min 3V Reviewed date:01/18/2024 08:33:04 PM Interpretation: Performing Lab: Notes/Report: [address] [address] XRay Report Signed Patient: Zan Encinas MR#: [id number] : 1960 Acct:[id number] Age/Sex: 63 / M ADM Date: 01/18/24 Loc: .ED Attending Dr: Ordering Physician: Yuriy Dunbar Date of Service: 01/18/24 Procedure(s): XR foot RT min 3V Accession Number(s): [id number] cc: Quinton Callahan MD; Yuriy Dunbar EXAMINATION: [...] by: Kaushal Cohen MD 01/18/2024 04:19 PM [facility] Dictated By: Kaushal Cohen MD Signed By: <Electronically signed by Kaushal Cohen MD in OV> 01/18/24 1619 DD/ 1516 TD/TT: 01/18/24 1534 [address]: [place] [address] XRay Report Signed Patient: Zan Encinas MR#: [id number] : 1960 Acct:[id number] Age/Sex: 63 / M ADM Date: 01/18/24 Loc: .ED Attending Dr: Ordering Physician: Yuriy Dunbar Date of Service: 01/18/24 Procedure(s): XR chito t RT min 3V Accession Number(s): [id number] cc: Quinton Callahan MD; Yuriy Dunbar EXAMINATION: [...] by: Kaushal Cohen MD 01/18/2024 04:19 PM [facility] Dictated By: Kaushal Cohen MD Signed By: <Electronically signed by Kaushal Cohen MD in OV> 01/18/24 1619 DD/ 1516 TD/TT: 01/18/24 1534 [address]: [place] Complete Blood Count no Diff Reviewed date:02/04/2024 11:35:53 AM Interpretation: Performing Lab:[facility], [address] [place] [address] Notes/Report: White Blood Count 11.5 4.8-10.8 X10*3/uL [...] INR Reviewed date:02/04/2024 11:35:53 AM Interpretation: Performing Lab:[facility], [address] [place] [address] Notes/Report: Prothrombin Time 13.0 10.9-12.4 SEC INTERNATIONAL [...] Time Reviewed date:02/04/2024 11:35:53 AM Interpretation: Performing Lab:[facility], [address] [place] [address] Notes/Report: Partial Thromboplastin Time 33.9 26.0-36.8 SEC For information regarding the monitoring of direct thrombin inhibitors, please refer to Pharmacy. Basic Metabolic Panel Reviewed date:02/04/2024 11:35:53 AM Interpretation: Performing Lab:[facility], [address] [place] [address] Notes/Report: Sodium 138 135-145 mmol/L Potassium 4.4 [...] Pathology Reviewed date:02/08/2024 08:35:16 AM Interpretation: Performing Lab:[facility], [address] [place] [address] Notes/Report: ---- Name: Toney Encinas Age/Sex: 63/M : 1960 [facility] [id number] Unit#: [id number] Attend Dr: Bimal Knott MD Re02/04/24 Status : ADM IN Location: [facility] 364-1 Disch: ---- SPEC : [id number] RECD : 02/04/24-1214 STATUS: YUSUF MATHUR NUM: [id number] FRANTZ: 02/04/24-[address]: Bimal Knott MD [...] label ed ?right leg? is a right oymtk-hbg-ooby amputation specimen which measures 34.0 cm in [...] No other erosions or ulcers are identified. 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 Cassettes A3 A4 and A5 are submitted following decalcification. CEDS CONTINUED ON NEXT PAGE ---- Name: EncinasToney Age/Sex: 63/M : 1960 Unit#: [id number] Attend Dr: Bimal Knott MD Re02/04/24 Status : ADM IN Location: [facility] 364-1 Disch: ---- SPEC : [id number] RECD : 02/04/24 STATUS: YUSUF KEVAN NUM: [id number] FRANTZ: 02/04/24-[address] [facility] [address]: Bimal Knott MD ENTERED: 02/04/24- 16 SP TYPE: Surgical OTHR DR: Quinton Callahan MD ORDERED: Gross Micro L5 Copies To: Quinton Callahan MD [address] [place] [address], [place] [id number] Bimal Knott MD [facility] [address] [place] [address] ---- Signed (signature on file) [place] 02/06/24 1550 ---- END OF REPORT Type and Screen Reviewed date:02/04/2024 11:35:53 AM Interpretation: Performing Lab:[facility], [address] [place] [address] Notes/Report: Blood Type OP Antibody Screen NEGATIVE Complete Blood Count no Diff Reviewed date:02/08/2024 08:35:16 AM Interpretation: Performing Lab:[facility], [address] [place] [address] Notes/Report: White Blood Count 9.4 4.8-10.8 X10*3/uL [...] ff Reviewed date:02/08/2024 08:35:16 AM Interpretation: Performing Lab:[facility], [address] [place] [address] Notes/Report: White Blood Count 11.2 4.8-10.8 X10*3/uL [...] Panel Reviewed date:02/08/2024 08:35:16 AM Interpretation: Performing Lab:[facility], [address] [place] [address] Notes/Report: Sodium 137 135-145 mmol/L Potassium 3.9 [...] REVIEW Reviewed date:02/08/2024 08:35:16 AM Interpretation: Performing Lab:[address] [address] Notes/Report: SLIDE REVIEW VERIFIED Complete Blood Count no Diff Reviewed date:02/08/2024 08:35:16 AM Interpretation: Performing Lab:[address] [address] Notes/Report: White Blood Count 9.3 4.8-10.8 X10*3/uL [...] Panel Reviewed date:02/08/2024 08:35:16 AM Interpretation: Performing Lab:[address] [address] Notes/Report: Sodium 136 135-145 mmol/L Potassium 3.8 [...] Level Reviewed date:02/08/2024 08:35:16 AM Interpretation: Performing Lab:[facility], [address] [place] [address] Notes/Report: Albumin Level 2.7 3.5-5.0 g/dL Complete Blood Count no Diff Reviewed date:02/08/2024 08:35:16 AM Interpretation: Performing Lab:[facility], [address] [place] [address] Notes/Report: White Blood Count 9.0 4.8-10.8 X10*3/uL [...] Gel Reviewed date:02/08/2024 08:35:16 AM Interpretation: Performing Lab:[facility], [address] [place] [address] Notes/Report: Hold Green Gel See Note Specimen held untested for 24 hours; Call to request Chemistry testing. Complete Blood Count Auto Di ff Reviewed date:05/27/2024 08:42:02 AM Interpretation: Performing Lab:[facility], [address] [place] [address] Notes/Report: White Blood Count 10.9 4.8-10.8 X10*3/uL [...] te Reviewed date:05/27/2024 08:42:02 AM Interpretation: Performing Lab:[address] [address] Notes/Report: Erythrocyte Sedimentation Rate 10 0-15 MM/HR Patients with polycythemia and many hemoglobin abnormalities may have depressed sed rates whereas patients with anemia may have elevated sed rates. Comprehensive Met. Panel Reviewed date:05/27/2024 08:42:02 AM Interpretation: Performing Lab:[address] [address] Notes/Report: Sodium 138 135-145 mmol/L Potassium 4.3 [...] Acid Reviewed date:05/27/2024 08:42:02 AM Interpretation: Performing Lab:[address] [address] Notes/Report: Lactic Acid 1.4 0.5-2.0 mmol/L C Reactive Protein Reviewed date:05/27/2024 08:42:02 AM Interpretation: Performing Lab:[facility], [address] [place] [address] Notes/Report: C Reactive Protein 1.01 < or = 0.50 mg/dL Blood Culture (First) Reviewed date:06/07/2024 04:51:50 AM Interpretation: Performing Lab:[facility], [address] [place] [address] Notes/Report: Blood Culture (First) No growth after 5 days. Blood Culture (Second) Reviewed date:06/07/2024 04:51:50 AM Interpretation: Performing Lab:[facility], [address] [place] [address] Notes/Report: Blood Culture (Second) No growth after 5 days. XR knee RT 4V Reviewed date:05/27/2024 08:42:02 AM Interpretation: Performing Lab: Notes/Report: [address] [place] [address] XRay Report Signed Patient: Zan Encinas MR#: [id number] : 1960 Acct:[id number] Age/Sex: 64 / M ADM Date: 05/26/24 Loc: .ED Attending Dr: Ordering Physician: Gt Cruz Date of Service: 05/26/24 Procedure(s): XR knee RT 4V Accession Number(s): [id number] cc: Gt Cruz; Quinton Callahan MD EXAMINATION: XR KNEE, RIGHT CLINICAL INFORMATION: Right stump erythema/pus discharge COMPARISON: 10/01/2023. TECHNIQUE: Four views of the right knee. FINDINGS: There is mild generalized osteopenia. There has been a vlylr-veg-mubj amputation. There are no permeative changes involving [...] 05/26/24 1532 DD/ 1452 TD/TT: 05/26/24 1510 [address]: [address] [address] XRay Report Signed Patient: Zan Encinas MR#: [id number] : 1960 Acct:[id number] Age/Sex: 64 / M ADM Date: 05/26/24 Loc: .ED Attending Dr: Ordering Physician: Gt Cruz Date of Service: 05/26/24 Procedure(s): XR kne e RT 4V Accession Number(s): [id number] cc: Gt Cruz; Quinton Callahan MD EXAMINATION: XR KNEE, RIGHT CLINICAL INFORMATION: Right stump erythema /pus discharge COMPARISON: 10/01/2023. TECHNIQUE: Four views of the ri ght knee. FINDINGS: There is mild generalized osteopenia. There has been a sgfqg-mtk-azoq amputation. There are no permeative changes involving [...] 05/26/24 1532 DD/ 1452 TD/TT: 05/26/24 1510 [address]: Complete Blood Count Auto Di ff Reviewed date:05/27/2024 08:42:02 AM Interpretation: Performing Lab:[address] [address] Notes/Report: White Blood Count 9.2 4.8-10.8 X10*3/uL [...] Panel Reviewed date:05/27/2024 08:42:02 AM Interpretation: Performing Lab:[facility], [address] [place] [address] Notes/Report: Sodium 140 135-145 mmol/L Potassium 3.8 [...] Creatinine Reviewed date:05/27/2024 08:42:02 AM Interpretation: Performing Lab:[facility], [address] [place] [phone] Notes/Report: Creatinine 0.84 0.5-1.4 mg/dL Creatinine Clr [...] Random Reviewed date:05/28/2024 04:55:44 AM Interpretation: Performing Lab:[facility], [address] [place] [phone] Notes/Report: Vancomycin Random 13.2 15-20 mcg/mL MR knee RT wo/w con Reviewed date:05/28/2024 04:55:44 AM Interpretation: Performing Lab: Notes/Report: [address] [place] [address] Magnetic Resonance Report Signed Patient: Zan Encinas MR#: [id number] : 1960 Acct:[id number] Age/Sex: 64 / M ADM Date: 05/26/24 Loc: .S3 376-[address]: Luciano Mari MD Ordering Physician: Keith Menendez MD Date of Service: 05/27/24 Procedure(s): MR knee RT wo/w con Accession Number(s): [id number] cc: Quinton Callahan MD; Keith Menendez MD [...] 05/27/24 1626 DD/ 1527 TD/TT: 05/27/24 [address]: [place] [address] Magnetic Resonance Report Signed Patient: Zan Encinas MR#: [id number] : 1960 Acct:[id number] Age/Sex: 64 / M ADM Date: 05/26/24 Loc: .S3 376-[address]: Alfredo Mari MD Ordering Physician: Keith Menendez MD Date of Service: 05/27/24 Procedure(s): MR green e RT wo/w con Accession Number(s): [id number] cc: Quinton Callahan MD; Keith Menendez MD [...] 05/27/24 1626 DD/ 1527 TD/TT: 05/27/24 [address]: Creatinine Reviewed date:05/28/2024 02:19:09 PM Interpretation: Performing Lab:[facility], [address] [place] [phone] Notes/Report: Creatinine 0.81 0.5-1.4 mg/dL Creatinine Clr [...] Random Reviewed date:05/30/2024 07:30:54 PM Interpretation: Performing Lab:[address] [address] Notes/Report: Vancomycin Random 13.4 15-20 mcg/mL Hold Lav - Possible Hematolo gy Reviewed date:05/30/2024 07:30:54 PM Interpretation: Performing Lab:[address] [address] Notes/Report: Hold Lav - Possible Hematology SEE NOTE Specimen will be held untested for 8 hours. Call Hematology if testing is desired. Creatinine Reviewed date:05/30/2024 07:30:54 PM Interpretation: Performing Lab:[facility], [address] [place] [address] Notes/Report: Creatinine 0.79 0.5-1.4 mg/dL Creatinine Clr [...] ff Reviewed date:07/01/2024 10:06:14 AM Interpretation: Performing Lab:[facility], [address] [place] [address] Notes/Report: White Blood Count 8.9 4.8-10.8 X10*3/uL [...] Creatinine Reviewed date:07/01/2024 10:06:14 AM Interpretation: Performing Lab:[address] [address] Notes/Report: Creatinine 1.10 0.5-1.4 mg/dL Estimated Glomerular Filt Rate > 60 Chronic Kidney Disease: Estimated GFR < 60 mL/min/1.73m2 Severe Kidney Disease: Estimated GFR < 15 mL/min/1.73m2 Vancomycin Trough Reviewed date:07/01/2024 10:06:14 AM Interpretation: Performing Lab:[facility], [address] [place] [address] Notes/Report: Vancomycin Trough 20.4 10.0-20.0 mcg/mL Complete Blood Count no Diff Reviewed date:10/13/2024 03:48:51 PM Interpretation: Performing Lab:[facility], [address] [place] [address] Notes/Report: White Blood Count 8.2 4.8-10.8 X10*3/uL [...] Panel Reviewed date:10/13/2024 03:48:51 PM Interpretation: Performing Lab:[address] [address] Notes/Report: Sodium 142 135-145 mmol/L Potassium 4.5 [...] stain Reviewed date:10/21/2024 05:29:45 AM Interpretation: Performing Lab:[address] [address] Notes/Report: BONE RIGHT TIBIA BONE RIGHT TIBIA Gram stain Gram stain results: Gram stain No polys Gram stain 4+ red blood cells Gram stain No organisms seen Routine Culture Reviewed date:10/13/2024 03:48:51 PM Interpretation: Performing Lab:[address] [address] Notes/Report: RIGHT BKA DEEP CULTURE Routine Culture Report - external Routine Culture 1+ Mixed skin rocio O:STAAUR Staphylococcus aureus Routine Culture Quant Org ID Routine Culture 1+ Clindamycin <=0.25 Erythromycin <=0.25 Levofloxacin 0.25 Oxacillin 0.5 Penicillin-G >=0.5 Tetracycline <=1 Trimethoprim/Sulfamethox azole <=10 Anaerobic Culture Reviewed date:10/21/2024 05:29:45 AM Interpretation: Performing Lab:[facility], [address] [place] [address] Notes/Report: BONE RIGHT TIBIA BONE RIGHT TIBIA Anaerobic Culture Report Anaerobic Culture No anaerobes isolated. Gram stain Reviewed date:10/13/2024 03:48:51 PM Interpretation: Performing Lab:[facility], [address] [place] [address] Notes/Report: RIGHT BKA DEEP CULTURE Gram stain Gram stain results: Gram stain 1+ polys Gram stain 4+ red blood cells Gram stain No organisms seen Routine Culture Reviewed date:10/21/2024 05:29:45 AM Interpretation: Performing Lab:[facility], [address] [place] [address] Notes/Report: Clindamycin <=0.25 Erythromycin <=0.25 Levofloxacin 0.25 Oxacillin 0.5 Penicillin-G >=0.5 Tetracycline <=1 Trimethoprim/Sulfamethox azole <=10 Clindamycin >=8 Erythromycin >=8 Levofloxacin <=0.12 Oxacillin >=4 Penicillin-G >=0.5 Tetracycline >=16 Trimethoprim/Sulfamethox azole 160 Vancomycin 1 Complete Blood Count Auto Di ff Reviewed date:10/21/2024 05:29:45 AM Interpretation: Performing Lab:[facility], [address] [place] [address] Notes/Report: White Blood Count 8.1 4.8-10.8 X10*3/uL [...] te Reviewed date:10/21/2024 05:29:45 AM Interpretation: Performing Lab:[address] [address] Notes/Report: Erythrocyte Sedimentation Rate 5 0-15 MM/HR Patients with polycythemia and many hemoglobin abnormalities may have depressed sed rates whereas patients with anemia may have elevated sed rates. Comprehensive Met. Panel Reviewed date:10/21/2024 05:29:45 AM Interpretation: Performing Lab:[address] [address] Notes/Report: Sodium 139 135-145 mmol/L Potassium 4.3 [...] Protein Reviewed date:10/21/2024 05:29:45 AM Interpretation: Performing Lab:[address] [address] Notes/Report: C Reactive Protein 0.52 < or = 0.50 mg/dL Gram stain Reviewed date:10/24/2024 02:48:30 PM Interpretation: Performing Lab:[facility], [address] [place] [address] Notes/Report: R BKA surgical site Gram stain Gram stain results: Gram stain 3+ polys Gram stain 2+ epithelial cells Gram stain 3+ Gram-negative rods Gram stain 1+ Gram-positive cocci Routine Culture Reviewed date:10/24/2024 02:48:30 PM Interpretation: Performing Lab:[facility], [address] [place] [address] Notes/Report: R BKA surgical site O:PSEAER Pseudomonas aeruginosa Routine Culture Quant Org ID Routine Culture 3+ O:CORSPE Corynebacterium species Routine Culture No susc Routine Culture Standard methods for susceptibility testing not established. Routine Culture Quant Org ID Routine Culture 2+ Cefepime 2 Ciprofloxacin 0.12 Gentamicin <=1 Meropenem 0.5 Piperacillin/Tazobactam <=4 Blood Culture (First) Reviewed date:11/07/2024 05:47:41 AM Interpretation: Performing Lab:[facility], [address] [place] [address] Notes/Report: Blood Culture (First) No growth after 5 days. Blood Culture (Second) Reviewed date:11/07/2024 05:47:41 AM Interpretation: Performing Lab:[facility], [address] [place] [address] Notes/Report: Blood Culture (Second) No growth after 5 days. XR knee RT 4V Reviewed date:10/21/2024 05:29:45 AM Interpretation: Performing Lab: Notes/Report: [facility] [address] [facility] [place] [address] XRay Report Signed Patient: Zan Encinas MR#: [id number] : 1960 Acct:[id number] Age/Sex: 64 / M ADM Date: 10/20/24 Loc: HO.ED Attending Dr: Ordering Physician: Pooja Tapia Date of Service: 10/20/24 Procedure(s): XR knee RT 4V Accession Number(s): [id number] cc: Quinton Callahan MD; Pooja Tapia EXAMINATION: [...] 10/20/24 1311 DD/ 1156 TD/TT: 10/20/24 [address]: [address] [address] XRay Report Signed Patient: Zan Encinas MR#: [id number] : 1960 Acct:[id number] Age/Sex: 64 / M ADM Date: 10/20/24 Loc: HO.ED Attending Dr: Ordering Physician: Pooja Tapia Date of Service: 10/20/24 Procedure(s): XR kne e RT 4V Accession Number(s): [id number] cc: Quinton Callahan MD; Pooja Tapia EXAMINATION: [...] 10/20/24 1311 DD/ 1156 TD/TT: 10/20/24 [address]: Complete Blood Count no Diff Reviewed date:10/24/2024 02:48:30 PM Interpretation: Performing Lab:[facility], [address] [place] [address] Notes/Report: White Blood Count 6.8 4.8-10.8 X10*3/uL [...] Panel Reviewed date:10/24/2024 02:48:30 PM Interpretation: Performing Lab:[address] [address] Notes/Report: Sodium 142 135-145 mmol/L Potassium 4.3 [...] T4 Reviewed date:10/24/2024 02:48:30 PM Interpretation: Performing Lab:[address] [address] Notes/Report: TSH reflex Free T4 1.34 0.32-4.0 uIU/mL Vancomycin Random Reviewed date:10/24/2024 02:48:30 PM Interpretation: Performing Lab:[facility], [address] [place] [address] Notes/Report: Vancomycin Random 12.7 15-20 mcg/mL Hold Lav - Possible Hematolo gy Reviewed date:10/24/2024 02:48:30 PM Interpretation: Performing Lab:[facility], [address] [place] [address] Notes/Report: Hold Lav - Possible Hematology SEE NOTE Specimen will be held untested for 8 hours. Call Hematology if testing is desired. Creatinine Reviewed date:10/24/2024 02:48:30 PM Interpretation: Performing Lab:[facility], [address] [place] [address] Notes/Report: Creatinine 1.09 0.5-1.4 mg/dL Creatinine Clr [...] Random Reviewed date:10/24/2024 02:48:30 PM Interpretation: Performing Lab:[facility], [address] [place] [address] Notes/Report: Vancomycin Random 12.4 15-20 mcg/mL Hold Lav - Possible Hematolo gy Reviewed date:10/24/2024 02:48:30 PM Interpretation: Performing Lab:[facility], [address] [place] [address] Notes/Report: Hold Lav - Possible Hematology SEE NOTE Specimen will be held untested for 8 hours. Call Hematology if testing is desired. Creatinine Reviewed date:10/24/2024 02:48:30 PM Interpretation: Performing Lab:[facility], [address] [place] [address] Notes/Report: Creatinine 1.14 0.5-1.4 mg/dL Creatinine Clr [...] Random Reviewed date:10/24/2024 02:48:30 PM Interpretation: Performing Lab:[facility], [address] [place] [address] Notes/Report: Vancomycin Random 18.9 15-20 mcg/mL Reason [...] Provider Speciality Internal M edicine Referred Provider [facility] er, Cardiology Referred Provider Specialty Cardiology General Notes DLuz 09/22/2024 11:10:39 AM > Faxed referral with progress noteBlaise Amber 10/09/2024 10:26:29 AM > patient was seen in the past on 08/06/2023 and has a follow up appointment scheduled for 01/28/25 @ 1:15pm. Spoke with Gill stated they did not receive the referral and to refax it so the patient is able to be seen sooner than 01/28/25.Blaise Amber 10/22/2024 02:20:35 PM > Patient is currently Admitted into .Blaise Amber 11/14/2024 02:25:27 PM > Spoke with Marlena patient has not been contacted or seen sooner. Stated she will be putting in a message to Dr. Ferrer's medical laboratory technicians to ask if the patient can be seen with the nurse practitioner. Stated they will contact the patient directly. Referral Priority Routine Referral Appointment Date 11/19/2024 Reason left renal hematoma evaluate and treatment Diagnosis 1 Hematoma of left kid luz, initial encounter (S37.012A) Referral Organization Quinton Callahan III, MD Referring Provider First Name Quinton Referring Provider Last Name Callahan Referring Provider Speciality Internal M edicine Referred Provider Chloe Flores Referred Provider Specialty Urology General Notes SJolie [facility] 09/30 03:24:56 PM >I called Dr Flores office made patient an appt for 12/03/2024 at 2:45pm pt is established with Dr Flores so no records were sent . [facility] appt information was mailed to patient Referral Priority Routine Referral Appointment Date 12/03/2024 Reason evaluate and treatme nt Barretts esophagus barretts Esophagus Due for EGD Diagnosis 1 Palmer's esophagus determined by endoscopy (K22.70) Referral Organization Quinton Callahan III, MD Referring Provider First Name Quinton Referring Provider Last Name [place] Referring Provider Speciality Internal edicine Referred Provider Quinton Campos Referred Provider Specialty Gastroentero logy General Notes Jolie Gonzalez [facility] 09/30 03:23:14 PM >Called Dr Campos [...] SHORTNESS OF BREATH OR WHEEZING Inhalation Active Atorvastatin Calcium 10 MG Take 1 tablet by mouth once daily Active Breo Ellipta 200-25 MCG/ACT INHALE 1 PUF F BY MOUTH ONCE DAILY Inhalation Active ASA 1 tab Oral Active Pantoprazole Sodium 40 MG Take 2 tablets by mouth once daily Active Metoprolol Succinate ER 25 MG 1 tablet Orally Once a day Active Tamsulosin HCl 0.4 MG 2 capsule Orally O nce a day Active Immunizations Vaccine Route Administration Date Status Comme nts Flu-IIv4pf Unknown 11/17/2015 Administered Moderna COVID 19 Spikevax Unknown 06/25/2020 Administer ed Moderna COVID 19 Spikevax Unknown 07/27/2020 Administer ed Social History Tobacco Use: Social History Observation [...] ast year? No Points 0 Interpretation Negative Problems Problem Type SNOMED Code ICD Code Onset Dates Problem Status W/U Status Risk Notes Problem 814124830 Overweight (E66.3) Active confirmed His body mass index is 29. We discussed diet and nutrition. I recommended aggressive weight loss and sodium restriction. Problem 835368209 Mixed hyperlipidemia (E78.2) Active confirmed A comprehensive laboratory database with a fasting lipid profile will be obtained. He was continued on his currrent meddications. Problem 13599814 Chronic obstructive pulmonary disease, unspecified COPD type (J44.9) Active confirmed He has resumed smoking 5 cigarettes per day. He was counseled about this and made aware of the smoking cessation programs in the area. Problem 72462060 Tobacco dependence (F17.200) Active confirmed I have counseled him about smoking cessation and offered to refer him to smoking cessation programs in the community. He said he would consider this and try to cut down. Problem Left bundle branch block (68667527) Left bundle branch block (I44.7) Active confirmed The imcu specialist's interpretation of the perfusion test was that the defect in the septum may be due to the bundle branch block. I will discuss this with cardiology. Problem 25302393 Hiatal hernia (K44.9) Active confirmed The symptoms of his esophageal reflux and hiatal hernia well controlled with current medications. No change in his regimen as needed. Problem 317479508 Peripheral arterial disease (I73.9) Active confirmed He is seeing the vascular surgeon eevery 2 weeks. 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 The plan is to fit him for a prosthesis. He denies any ulcers or claudication in the left leg. Problem Hoarseness (69691475) Hoarseness (R49.0) Active confirmed He will be referred to ENT for indirect laryngoscopy. Problem 7160573 Umbilical hernia without obstruction and without gangrene (K42.9) Active confirmed This is asymptomatic and requires no treatment at this time. Problem 608385773 Benign prostatic hyperplasia with lower urinary tract symptoms (N40.1) Active confirmed The tamsulosin was continued today. He will notify me if his symptoms worsen. He has had no retention. He has symptoms of prostatism. Problem 482405854 Acute right-sided low back pain with right-sided sciatica (M54.41) Active confirmed His back pain continues and I have increased the gabapentin. Problem Cardiac arrhythmia (837605922) Irregular heart rate (I49.9) Active confirmed These episodes had night have increased lately. He has had no chest pain. He has had no increase in his chronic dyspnea. Holter monitor has been ordered. He is not anticoagulated. Problem 316556155 Palmer's esophagus determined by endoscopy (K22.70) Active confirmed He is due for an endoscopy and was referred back to his gastroenterolog ist, Dr. Quinton Campos. 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 Problem 58318401815861439 Carpal tunnel syndrome on both sides (G56.03) Active confirmed He has a history of carpal tunnel syndrome treated by Dr. Raphael. He is currently asymptomatic. 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 He is currently on an antibiotic. His pain is mild. Vital Signs Heart Rate 64 /min 12/02/2024 Temperature 100.1 degrees Fahrenheit 12/02/2024 Respiratory Rate 15 /min 12/02/2024 Oximetry 96 % 12/02/2024 Blood pressure diastolic 91 mm Hg 12/02/2024 Height 73 in 12/02/2024 Blood pressure systolic 145 mm Hg 12/02/2024 Weight 197 lbs 12/02/2024 BMI 25.99 kg/m2 12/02/2024 Encounters Encounter Location Date Provider Diagnosis Quinton Callahan III, MD [address] [place] [address] [place] [address] 12/02/2024 Quinton Callahan Chronic osteomyeliti s of right tibia with draining sinus M86.461 Quinton Callahan III, MD [address] [place] [address] [place] [address] 12/28/2023 Quinton Callahan Peripheral arterial disease I73.9 ; Chronic obstructive pulmonary disease, unspecified COPD type J44.9 ; Benign prostatic hyperplasia with lower urinary tract symptoms N40.1 ; Palmer's esophagus determined by endoscopy K22.70 ; Hiatal hernia K44.9 ; Overweight E66.3 ; Tobacco dependence F17.200 and Mixed hyperlipidemia E78.2 Quinton Callahan III, MD [address] [place] [address] [place] [address] 06/12/2024 Quinton Callahan Peripheral arterial disease I73.9 ; Benign prostatic hyperplasia with lower urinary tract symptoms N40.1 ; Palmer's esophagus determined by endoscopy K22.70 ; Chronic obstructive pulmonary disease, unspecified COPD type J44.9 ; Overweight E66.3 ; Tobacco dependence F17.200 and Mixed hyperlipidemia E78.2 Quinton Callahan III, MD [address] [place] [address] [place] [address] 07/10/2024 Quinton Callahan Peripheral arterial disease I73.9 [...] gangrene K42.9 and Tobacco dependence F17.200 Quinton Clalahan III, MD [address] [place] [address] [place] [address] 09/09/2024 Quinton Callahan Irregular heart rate I49.9 [...] draining sinus M86.461 Quinton Callahan III, MD [address] [place] [address] [place] [address] 09/30/2024 Quinton Callahan Chronic osteomyeliti s of right tibia with draining sinus M86.461 ; Overweight E66.3 ; Umbilical hernia without obstruction and without gangrene K42.9 ; Peripheral arterial disease I73.9 ; Chronic obstructive pulmonary disease, unspecified COPD type J44.9 ; Splenic vein thrombosis I82.890 ; Palmer's esophagus determined by endoscopy K22.70 and Tobacco dependence F17.200 Quinton Callahan III, MD [address] [place] [address] [place] [address] 10/29/2024 Quinton Callahan Chronic osteomyeliti s of right tibia with draining sinus M86.461 ; Tobacco dependence F17.200 ; Peripheral arterial disease I73.9 ; Palmer's esophagus determined by endoscopy K22.70 ; Chronic obstructive pulmonary disease, unspecified COPD type J44.9 ; Hiatal hernia K44.9 and Mixed hyperlipidemia E78.2 Quinton Callahan III, MD [address] [place] [address] [place] [address] 12/18/2023 Quinton Callahan III, MD [address] [place] [address] [place] [address] 12/21/2023 Quinton Callahan III, MD [address] [place] [address] [place] [address] 12/21/2023 Quinton Callahan III, MD [address] [place] [address] [place] [address] 02/12/2024 Quinton Callahan III, MD [address] [place] [address] [place] [address] 03/04/2024 Quinton Callahan III, MD [address] [place] [address] [place] [address] 05/02/2024 Quinton Callahan III, MD [address] [place] [address] [place] [address] 05/02/2024 Quinton Callahan Peripheral arterial disease I73.9 [facility] [address] [place] [phone] 06/02/2024 Quinton Callahan III, MD [address] [place] [address] [address] [place] [address] 07/23/2024 Quinton Callahan III, MD [address] [place] [address] [address] [place] [address] 08/27/2024 Quinton Callahan III, MD [address] [place] [address] [address] [place] [address] 09/04/2024 Quinton Callahan Assessments Encounter Date Diagnosis (ICD Code) Assessment Notes Treat ment Notes Treatment Clinical Notes 12/02/2024 Chronic osteomyeliti s of right tibia with draining sinus (ICD-10 - M86.461) He was recently hospitalized and underwent further surgery to try to cure the osteomyelitis. He is currently on an antibiotic. His pain is mild. 12/28/2023 Chronic obstructive pulmonary disease, unspecified COPD [...] endoscopy and was referred back to his rn anesthetist, Dr. Quinton Campos. 07/10/2024 Benign prostatic hyperplasia [...] endoscopy and was referred back to his rn anesthetist, Dr. Quinton Campos. 06/12/2024 Chronic obstructive pulmonary disease, unspecified COPD type (ICD-10 - J44.9) He has resumed smoking 5 cigarettes per day. He was counseled about this and made aware of the smoking cessation programs in the area. 07/10/2024 Palmer's esophagus determined by endoscopy (ICD-10 - K22.70) He is due for an endoscopy and was referred back to his rn anesthetist, Dr. Quinton Campos. 09/09/2024 Palmer's esophagus determined by endoscopy (ICD-10 - K22.70) He is due for an endoscopy and was referred back to his rn anesthetist, Dr. Quinton Campos. 09/30/2024 Peripheral arterial disease [...] endoscopy and was referred back to his rn anesthetist, Dr. Quinton Campos. 12/28/2023 Hiatal hernia (ICD-1 [...] endoscopy and was referred back to his rn anesthetist, Dr. Quinton Campos. 10/29/2024 Mixed hyperlipidemia (ICD-10 [...] Provider Name:Quinton Callahan , 01/06/2025 02:30:00 PM, [address] [place] [address] [address], [place], [address], Provider Name:Quinton Callahan , 12/08/2025 02:30:00 PM, [address] [place] [address] [address], [place], [address], Insurance Providers Payer Name Payer Address Payer Phone Subscriber Number Group Number Insured Name Patient Relationship to Insured Coverage Start Date Coverage End Date [employer] [address] [place] [address] [id number] Zan Olivo Self - patient is the insured 4 MEDICARE NGS [address] [place] [address] [id number] Zan Olivo Self - patient is the [...] right leg Surgical History Surgery Date(Month/Year) Right [id number] amputation 4 arteriogram right lower extremity 05/2019 upper endoscopy, [facility], Dr. Quinton Campos, Palmer's esophagus 2014 upper endoscopy and colonosc opy, [facility], Dr. 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
--- OUTSIDE RECORDS SUMMARY | 2024-12-02 15:58 | XMS_ITS | Patient Health Record ---
Author Organization [facility] Address [address] [place] [address] Care Team Providers Care Box Bender Name Role Phone Quinton Callahan MD Primary Care Provider Quinton Mao Unavailable [phone] Reason For Referral No Information Medications Medication [...] Problem Status W/U Status Risk Notes Problem 072440394 Encounter for screening for malignant neoplasm of colon (Z12.11) Active confirmed Problem 711049529 Palmer's esopha xu without dysplasia (K22.70) Active confirmed Problem 379690196 Gastroesophageal reflux disease without esophagitis (K21.9) Active confirmed Plan Of Treatment Future Test Test Name Order Date UPPER GI ENDOSCOPY 03/19/2013 UPPER GI ENDOSCOPY 06/11/2019 COLONOSCOPY 06/11/2019 Next Appt Details Provider Name:Quinton Valle Campos , 02/04/2025 01:00:00 PM, [address] [place] [address], [address], [place], [address], Insurance Providers Payer Name Payer Address Payer Phone Subscriber Number Group Number Insured Name Patient Relationship to Insured Coverage Start Date Coverage End Date MEDICARE OF [place] [address] [place] [address] [id number] JUAN FRANCISCO HOWELL Self - patient is the insured Medical (General) History Medical History History ICD Code Colonoscopy in 12/2009 neg e xcept for a hyperplastic polyp, diverticulosis, and internal hemmorhoids GERD with a small area of Ba rrett's esophagus--EGD in 12/2009-small HH-bx neg for dysplasia Splenic vein thrombosis in approx 1999-- had previously been on Coumadin Denies [place],DM,CVA,renal disease EGD 04/2013 with small area o f Palmer's, no dysplasia nor esophagitis; small hiatal hernia COPD PVD with claudication as below Surgical History Surgery Date(Month/Year) 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 Knott 06/18/2019
--- OUTSIDE RECORDS SUMMARY | 2024-12-02 15:58 | XMS_ITS | Encounter Summary ---
Author Organization [facility] Address [address] [place] [address] [place] [id number] Phone Care Team Providers Care Cooking Casing And Drying Supervisor Name Role Phone Quinton Callahan MD Primary Care Provider [phone] Encounter Details Date Type Department Care Team (Late st Contact Info) Description 11/28/2023 Procedure [facility] [address] [place] [address] Social History Tobacco Use Types Packs/Day Years [...] on filedocumented in this encounter Care Teams Cooking Casing And Drying Supervisor Relationship Specialty Start Date End Date Quinton Callahan MD [address] [place] [address] [place] [id number] PCP - General Medical Oncology 11/23/23 documented as of this encounter Additional Source Comments The information contained in this document represents components of the legal health record. It is not the complete legal health record.[facility]
== END 2024-12-02 13:47 | disposition home or self-care (01) ==
LOC: HO.HVS 13:02
PROVIDERS: PCP Internal Medicine Medical Oncology; Visit Provider Surgery Vascular Surgery
DX: T87.89 Other complications of amputation stump (principal); Z89.511 Acquired absence of right leg below knee
CPT/HCPCS: 99024

== ENCOUNTER → 2024-12-02 13:01 | Outpatient (BNVA) | payer MEDICARE, SELFPAY | PROVIDERS: PCP Internal Medicine Medical Oncology; Visit Provider Surgery Vascular Surgery | DX: I73.9 Peripheral vascular disease, unspecified (principal); L03.115 Cellulitis of right lower limb; Z89.511 Acquired absence of right leg below knee | CPT/HCPCS: 99212 ==

== ENCOUNTER 2024-12-03 14:50 | Outpatient (AMB) | payer MEDICARE, SELFPAY ==
--- NOTE | 2024-12-03 14:55 | MHC.OFFVIS ---
Intake Visit Reasons: 1 year f/up hydronephrosis Intake Note: patient presents today for: 1yr follow up hydronephrosis urology medications: tamsulosin blood thinners: aspirin Intelligence Operations Required: No Accompanied by: Self / Same As Patient Allergies No Known Allergies Allergy (Verified 12/03/24 21:16) Medication List - Last Reconciled 12/03/24 by BARBARA Saenz-GARCIA acetaminophen (Tylenol Extra Strength) 1,000 mg PO Q6H PRN albuterol sulfate 90 mcg/actuation 2 puffs inhalation Q4H PRN aspirin (Luis Low Dose Aspirin) 81 mg PO DAILY atorvastatin 10 mg PO DAILY gabapentin 600 mg PO BID levofloxacin 500 mg PO DAILY metoprolol succinate ER 25 mg PO DAILY Held on 10/23/24. Instructions: Resume on 11/10/24. Your metoprolol was held because your heart rate was low while in the hospital. Heart rate and blood pressure were well-controlled throughout hospital stay. Continue to hold metoprolol at this time until you follow up with your PCP to consider whether stopping medication or resuming it at a later date. [id number] [phone] mcg (Centrum Silver Men) 1 tab PO DAILY pantoprazole 80 mg PO DAILY@0630 tamsulosin 0.8 mg PO DAILY HPI Comments Details: Zan is a very pleasant 64-year-old male patient of Dr. Callahan. He has a past medical history of peripheral arterial disease, nicotine dependence, BPH, elevated cholesterol, AFib, Palmer's esophagus, GERD, and COPD. He presents to the office today for follow-up. Of note, patient was seen approximately 1 year ago as a new patient for question renal cysts verses hydronephrosis at which time recommendations were made for a CT of the abdomen and pelvis to be performed. However, in discussion with the patient today he reports shortly after his initial appointment he had followed up with vascular and underwent multiple procedures in attempt to assist with vascularization however shortly after vascular procedures he underwent right-sided ydcmm-gay-[id number] amputation. He discusses his ongoing issues with healing and has been following up with vascular as well as his primary care provider. In review of patient's chart it appears patient was hospitalized 01/19 as patient with prior right-sided popliteal bypasses with occlusion, status post placement of intra-arterial tPA catheter by vascular. On 01/08/2024 status post to repeat fluoroscopy with demonstration of improved graft patency, but with development of postprocedure left-sided retroperitoneal hematoma requiring pressor support and 3units RBC. We discussed obtaining more recent imaging as in review of patient's chart it appears imaging from 2023. Labs are as follows: BUN: 11/19 20, 01/19 16, 01/19 8, 01/19 13, 01/19 17, 01/19 18, 01/19 16, 01/19 23, 01/19 26, 01/19 27, 01/19 25, 01/19 19, 01/19 21, 01/19, 21, 01/19 16, 02/18 19, 02/18 11, 02/18 10, 05/20 16, 06/20 11, 10/20 18, 825 18, 10/20 13 Creatinine: 11/19 0.95, 01/19 , 01/19 0.68, 01/19 0.97, 01/19 1.41, 01/19 0.96, 01/19 0.88, 01/19 1.35, 01/19 1.17, 01/19 1.02, 01/19 0.90, 01/19 0.74, 01/19 0.91, 01/19 0.82, 01/19 0.80, 02/18 1/13, 02/18 0.82, 02/18 0.76, 05/20 0.80, 06/20 0.80, 06/20 0.84, 06/20 0.81, 06/20 0.79, 07/20 1.10, 10/20 1/15, 10/20 1.07, 10/20 0.94, 10/20 1.09, 10/20 1.14 He reports a longstanding history of urinary issues since the early ages of 28 when he had experienced prostatitis. He reports being on Flomax 0.8 mg daily and feels this has been helpful however does continue to experience episodes of urinary hesitancy and nocturia. In review of patient's chart it appears PSAs are as follows 04/21 1.1. In office urinalysis results reviewed with the patient today. He otherwise denies incontinence, hematuria, dysuria, foul smelling urine, flank pain, fever, and or chills. He otherwise offers no other issues or concerns at this time. [facility] Medical History Peripheral arterial disease Below-knee amputation of right lower extremity Osteomyelitis Krish angina Left bundle branch block Bakers cyst Nicotine dependence, cigarettes, uncomplicated Arthritis BPH (benign prostatic hyperplasia) Elevated cholesterol Complex regional pain syndrome i of right lower limb S/P angiogram of extremity (07/18/23) Atrial fibrillation History of Palmer's esophagus Splenic vein thrombosis History of femoral angiogram GERD (gastroesophageal reflux disease) COPD (chronic obstructive pulmonary disease) Surgical History Hx of BKA History of tonsillectomy Hx of oral surgery Hx of tracheostomy History of esophagogastroduodenoscopy (EGD) H/O colonoscopy Social History Household Members: Family and Children Household Members Other:: Son, son girlfriend, grandbaby Housing: Apartment Housing Other:: 3 stairs to climb Are you a primary primary care nurse practitioner to a significant other at home: No Do you presently have visiting nurse or other home services: Yes Comment: Dr Knott made aware of absent pulse and sensation in right foot Patient Tobacco Use Status: Current everyday Tobacco user Tobacco use type: Cigarette Cigarette Packs Per Day: 1 Cigarettes Per Day: 20.0 Years Smoked: 50 e-Cigarette/Vaping Use: Never Used Second Hand Smoke Exposure: No Substance Use Type: Marijuana Advance Directives Date on File: 01/17/24 service: Yes Review of Systems Const Reports as per HPI Eyes Reports no additional complaints ENT Reports no additional complaints Card Reports as per HPI Resp Reports as per HPI GI Reports as per HPI Reports as per HPI Musc Reports as per HPI Skin/Breast Reports as per HPI Neuro Reports no additional complaints Psych Reports no additional complaints Endo Reports no additional complaints Matt/Lymph Reports as per HPI Aller/Immun Reports no additional complaints Physical Exam Const General: cooperative, healthy appearing, comfortable, no acute distress, well developed, alert and awake Orientation/consciousness: patient oriented x3 Limitations: wheelchair HEENT Head: Yes normal to inspection, Yes normocephalic and Yes atraumatic Ears: hearing grossly normal bilaterally Eyes General: appearance normal, both eyes and all related structures Neck Neck: Yes normal visual inspection and Yes trachea midline Chest Chest palpation & inspection: normal inspection of the chest Resp Effort & Inspection: normal respiratory effort and able to speak in complete sentences Cardio Rate: regular rate GI Inspection: Yes normal to inspection General: Yes no CVA tenderness Back/Spine/Pelvis Back: no CVA tenderness Skin General skin exam: no rashes or lesions noted Neuro General: patient oriented x3 Extrem Other: Patient with right mfwms-onm-xlkf amputation Psych Appearance: grossly normal and well kempt Mental Status: mental status grossly normal Speech and movement: Normal speech and movement present and Clear speech present Affect: normal affect Attitude: cooperative Thought process: Normal thought process present Thought content: Normal thought content present Insight: Fair insight present (Psych) Judgement: Fair judgement present (Psych) Results AMB Urinalysis, Automated UA Leukoctes 0 Karyna/uL Last Edit by HU Earl on 12/03/24 15:18 UA Nitrite Last Edit by HU Earl on 12/03/24 15:18 UA Urobilinogen 0.2 mg/dL Last Edit by HU Earl on 12/03/24 15:18 UA Protein 15 mg/dL Last Edit by HU Earl on 12/03/24 15:18 UA pH 6.0 Last Edit by HU Earl on 12/03/24 15:18 UA Blood 0 Tunde/uL Last Edit by HU Earl on 12/03/24 15:18 UA Specific [place]ickory 1.015 Last Edit by HU Earl on 12/03/24 15:18 UA Ketone Last Edit by HU Earl on 12/03/24 15:18 UA Bilirubin 0 mg/dL Last Edit by HU Earl on 12/03/24 15:18 UA Glucose 0 mg/dL Last Edit by HU Earl on 12/03/24 15:18 Results Reviewed Results Reviewed: Laboratory Last Values Urine pH (Auto) 6.0 12/03/24 15:17 Specific Hickory (Auto) 1.015 12/03/24 15:17 Urine Protein (Auto) 15 mg/dL 12/03/24 15:17 Glucose (UA)(Auto) 0 mg/dL 12/03/24 15:17 Urine Blood (Auto) 0 Tunde/uL 12/03/24 15:17 Urine Bilirubin (Auto) 0 mg/dL 12/03/24 15:17 Urine Urobilinogen (Auto) 0.2 mg/dL 12/03/24 15:17 Leukocyte Esterase (Auto) 0 Karyna/uL 12/03/24 15:17 Date of Service: 01/10/24 Procedure(s): CT abdomen pelvis w IV con FINDINGS: LUNG BASES: Small left-sided pleural effusion with adjacent atelectasis, new when compared to the prior examination. LIVER, GALLBLADDER, AND BILIARY TREE: The liver is normal in size, shape, and attenuation. No focal hepatic lesion or biliary ductal dilatation is present. The gallbladder is unremarkable with no evidence of radiopaque gallstones, gallbladder wall thickening, or obvious pericholecystic inflammatory changes. PANCREAS: Unremarkable. SPLEEN: Unremarkable. ADRENAL GLANDS: Unremarkable. KIDNEYS AND URETERS: There is a large, increasing left renal subcapsular hematoma with layering hyperdensity now measuring approximately 8.5 x 9.6 x 17.5 cm (AP x ML x CC) (previously 3.0 x 4.4 x 4.4 cm). There is severe mass effect on the left renal parenchyma with severe left-sided hydronephrosis and proximal hydroureter. There is hyperdensity within the severely dilated collecting system, likely representing blood products. The distal ureter is nondilated. Normal right renal shape and parenchymal density. No right renal parenchymal lesion. No right-sided hydronephrosis or nephrolithiasis. No renal or ureteral stone. BLADDER: Nondistended with hyperdensity in the lumen, consistent with blood or blood products. GASTROINTESTINAL TRACT: No small or large bowel obstruction. No bowel wall thickening or inflammatory change. Appendix not identified. PERITONEAL CAVITY: Redemonstration of a large left retroperitoneal hematoma which extends from the left angle region proximally to the level of the spleen. This appears similar in size when compared to the prior examination. Increasing abdominal ascites. No intra-abdominal free air. ABDOMINAL WALL: No significant hernia is appreciated. LYMPH NODES: No significant lymphadenopathy. VASCULAR: No abdominal aortic dilatation or dissection. Scattered atherosclerotic calcifications. Surgical clips in the left angle region. PELVIC VISCERA: Prostate calcifications. OSSEOUS STRUCTURES: No acute osseous abnormality. IMPRESSION: 1. Large left renal subcapsular hematoma, increased in size when compared to the prior examination, now measuring up to 17.5 cm (previously 3.0 cm). Severe mass effect on the left renal parenchyma with severe left-sided hydronephrosis and proximal hydroureter. Hyperdensity within the severely dilated collecting system, likely representing blood products. The distal ureter is nondilated. 2. Redemonstration of a large left retroperitoneal hematoma, similar in size when compared to the prior examination. 3. Increasing abdominal ascites. No intra-abdominal free air. 4. Small left-sided pleural effusion with adjacent atelectasis, new when compared to the prior examination. Assessment & Plan Assessment & Plan (1) Renal cyst: Code(s): N28.1 - Cyst of kidney, acquired Category: Medical (2) Hydronephrosis: Code(s): N13.30 - Unspecified hydronephrosis Category: Medical (3) BPH (benign prostatic hyperplasia): Code(s): N40.0 - Benign prostatic hyperplasia without lower urinary tract symptoms Category: Medical (4) Hydronephrosis: Code(s): N13.30 - Unspecified hydronephrosis Plan In office urinalysis results reviewed with the patient today; as noted above. We discussed obtaining more recent renal ultrasound for further assessment evaluation. Continue Flomax as discussed and prescribed. We discussed obtaining PSA, BUN, and creatinine Most recent BUN and creatinine results reviewed with the patient today; as noted above. We did discussed importance of limiting fluids 2-3 hours prior to bed to decrease episodes of nocturia. We also discussed the importance of limiting/quitting nicotine dependence for overall health and well-being. Continue to follow-up with cardiology, PCP, and vascular as planned. Follow-up in 1-2 weeks with imaging and labs; or sooner with any issues, concerns, and or questions. Orders: Orders AMB Urinalysis Automated Today Z13.9 - Encounter for screening, unspecified Prostate Specific Antigen Today N13.30 - Unspecified hydronephrosis, N28.1 - Cyst of kidney, acquired, N40.0 - Benign prostatic hyperplasia without lower urinary tract symptoms Blood Urea Nitrogen Today N40.0 - Benign prostatic hyperplasia without lower urinary tract symptoms US renal BI Today N13.30 - Unspecified hydronephrosis, N28.1 - Cyst of kidney, acquired Creatinine Today N28.1 - Cyst of kidney, acquired Patient Instructions: The patient had an opportunity to ask questions regarding the treatment plan. All questions were answered. Physical exam, labs, and imaging were discussed and reviewed in detail. As well as risks, benefits, and discussion of treatment choices. No major barriers to understanding were identified. The patient expressed understanding and agreement with the above treatment plan. The patient was made aware they should contact our office by phone for worsening of their current condition, the appearance of new symptoms, or with any questions or concerns. Compliance is encouraged with any medications and follow up testing that is ordered. It is a privilege to be allowed the opportunity to participate in? your urological care.? Again, if you have any questions or concerns If you have any questions or concerns please do not hesitate to contact me. The office is [phone]. This note is constructed using voice recognition software. While every effort has been made to ensure accuracy baby stroller rental clerk errors may have been included. Yours sincerely, JUNIOR Saenz Coding Level of Care Code Est Pt Level 4 (43748) Complex EM visit Add On G2211 Diagnoses Renal cyst N28.1 Hydronephrosis N13.30 BPH (benign prostatic hyperplasia) N40.0 Time Spent (min) 40
== END 2024-12-03 15:34 | disposition home or self-care (01) ==
LOC: HO.HUSH 14:51
PROVIDERS: PCP Internal Medicine Medical Oncology; Visit Provider Nurse Practitioner Family
DX: N28.1 Cyst of kidney, acquired (principal); N13.30 Unspecified hydronephrosis; N40.0 Benign prostatic hyperplasia without lower urinary tract symptoms; Z13.9 Encounter for screening, unspecified
CPT/HCPCS: 99214; G2211

== ENCOUNTER → 2024-12-03 14:50 | Outpatient (BNVA) | payer MEDICARE, SELFPAY | PROVIDERS: PCP Internal Medicine Medical Oncology; Visit Provider Nurse Practitioner Family | DX: N40.0 Benign prostatic hyperplasia without lower urinary tract symptoms (principal); N13.30 Unspecified hydronephrosis; N28.1 Cyst of kidney, acquired | CPT/HCPCS: 81003; 99212 ==

== ENCOUNTER 2024-12-04 10:08 | Outpatient (REF) | payer MEDICARE, SELFPAY ==
--- NOTE | ~2024-12-04 | US_ITS ---
CLINICAL HISTORY: N28.1 - Cyst of kidney, acquired US Renal Comparison: None provided Findings: Right kidney normal size and echotexture, 12.4 cm length. Left kidney normal size and echotexture, 11.7 cm length. Mild left hydronephrosis. Heterogeneous region of echogenicity lateral to the left kidney measuring 57 mm x 12 mm x 10 mm which is indeterminate. No hydronephrosis of either kidney. Normal color Doppler IMPRESSION: 1. Mild left hydronephrosis. 2. Indeterminate heterogeneous region adjacent to the left kidney as described above. Further assessment with renal protocol CT is recommended. This document has been electronically signed by: Pineda Benito MD on 12/05/2024 13:46:59
== END 2024-12-04 10:09 | disposition home or self-care (01) ==
LOC: HO.US 10:08
PROVIDERS: PCP Internal Medicine Medical Oncology; Visit Provider Nurse Practitioner Family
DX: N28.1 Cyst of kidney, acquired (principal); N13.30 Unspecified hydronephrosis
CPT/HCPCS: 76775

== ENCOUNTER → 2024-12-04 10:11 | Outpatient (BNV) | payer MEDICARE, SELFPAY | PROVIDERS: PCP Internal Medicine Medical Oncology; Visit Provider Radiology Diagnostic Radiology | DX: N13.39 Other hydronephrosis (principal) | CPT/HCPCS: 76775 ==

== ENCOUNTER 2024-12-10 16:09 | Outpatient (AMB) | payer MEDICARE, SELFPAY ==
--- OUTSIDE RECORDS SUMMARY | 2023-08-14 06:30 | XMS_ITS ---
Author Organization [facility] Address [address] [place] [address] Care Team Providers Care Size Changer Name Role Phone Quinton Callahan MD Primary Care Provider Unavailab Quinton Alvarez [phone] REASON FOR VISIT Patient presents today for EGD, NUGENT'S ESOPHAGUS Encounters Encounter Location Date Provider Diagnosis [facility] [address] [facility] [address] [place] [address] 08/14/2023 Quinton Campos Plan Of Treatment Next Appt Details Provider Name:Quinton Campos , 02/04/2025 01:00:00 PM, [address], [address], [place], [address], Progress Notes * ANGELA HERNANDEZOB:1960 (64 yo M)Acc No.[id number]:08/14/2023 Progress Notes Patient: JUAN FRANCISCO TONG Provider: Angeles Campos MD :1960 A ge:63 Y S ex:Male Date:08/14/2023 Address:[address] [place] [address] [place] Pcp:Quinton Callahan MD Subjective: * Chief Complaints: [...] 08/14/2023 Generated for Tristen bustamante/Jai/Allysonitting on: 1 07:19 PM EDT
--- OUTSIDE RECORDS SUMMARY | 2024-09-09 07:30 | XMS_ITS ---
Author Organization Quinton Callahan III, MD Address [address] [place] [address] Care Team Providers Care Painting Technician Name Role Phone Dr. Quinton Callahan III [...] Provider Speciality Internal M edicine Referred Provider [facility] er, Cardiology Referred Provider Specialty Cardiology [...] putting in a message to Dr. Ferrer's biomedical scientist to ask if the patient can be [...] Date Provider Diagnosis Quinton Callahan III, MD [address] [place] [address] [place] [address] 09/09/2024 Quinton Callahan Irregular heart rate I49.9 [...] endoscopy and was referred back to his vascular tech, Dr. Quinton Campos. 09/09/2024 Chronic obstructive pulmonary [...] Provider Name:Quinton Callahan , 01/06/2025 02:30:00 PM, [address] [place] [address] [address], [place], [address], Provider Name:Quinton Callahan , 12/08/2025 02:30:00 PM, [address] [place] [address] [address], [place], [address], Progress Notes * Ana ENCINAShDOB:1960 (64 yo M)Acc No.[id number]:09/09/2024 Progress Notes Patient: Zan TONG Provider: Angeles Callahan MD :1960 A ge:64 Y S ex:Male Date:09/09/2024 Address:[address] [place] [address], [facility] [id number] Subjective: * Chief Complaints: * R ight [...] Palmer's esophagus 2014arteriogram right lower extremity 05/2019Right dfvpo-rnr-ktht amputation 02-04-2024 * Hospitalization/Major Diagno stic Procedure: [...] healthy grandchildren. One of his siblings has Qgwuwxi-Vyomd-Iukqq disease. 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 He was born in [place], [place]. He came to [place] in 1984. He is with 6 children. He has 11 grandchildren. He is a of [employer]. He trained at [employer] and served in [employer]. * Medications: T akingMetoprolol Succinate ER 25 [...] 2 tablets by mouth once daily DiscontinuedNystatin 709829 UNIT/GM Powder 1 application Externally Twice a [...] reviewed and reconciled with the patientDiscontinued Nystatin 385401 UNIT/GM Powder 1 application Externally Twice a [...] endoscopy and was referred back to his vascular tech, Dr. Quinton Campos. 5 . C hronic [...] 09/09/2024 Generated for Tristen bustamante/Jai/eTransmitting on: 1 07:18 PM EDT History and Physical Notes * [...]
--- OUTSIDE RECORDS SUMMARY | 2024-09-30 10:00 | XMS_ITS ---
Author Organization uQinton Callahan III, MD Address [address] [place] [address] [place] [address] Care Team Providers Care Butcherette Name Role Phone Dr. Quinton Callahan III Primary Care Provider [phone] Allergies Allergen (clinical drug ingredient) Drug/Non Drug [...] Provider Specialty Urology General Notes Jolie Gonzalez [facility] 09/30 03:24:56 PM >I called Dr Flores office made patient an appt for 12/03/2024 at 2:45pm pt is established with Dr Flores so no records were sent . [facility] appt information was mailed to patient Referral [...] Specialty Gastroentero logy General Notes Jolie Gonzalez [facility] 09/30 03:23:14 PM >Called Dr Campos [...] Date Provider Diagnosis Quinton Callahan III, MD [address] [place] [address] [address] [place], [place] [phone] 09/30/2024 Quinton Callahan Chronic osteomyeliti s of [...] endoscopy and was referred back to his ear pull machine operator, Dr. Quinton Campos. 09/30/2024 Tobacco dependence [...] Cephalexin 500 MG TAKE 1 CAPSULE BY [facility] TWICE DAILY Oral Albuterol Sulfate [...] Provider Name:Quinton Callahan , 01/06/2025 02:30:00 PM, [address] [place] [address] [address], [place], [address], Provider Name:Quinton Callahan , 12/08/2025 02:30:00 PM, [address] [place] [address] [address], [place], [address], Progress Notes * Ana ENCINAShDOB:1960 (64 yo M)Acc No.[id number]:09/30/2024 Progress Notes Patient: Zan TONG Provider: Angeles Callahan MD :1960 A ge:64 Y S ex:Male Date:09/30/2024 Address:[address] [place] [phone] Subjective: * Chief Complaints: * R ecurrent [...] esophagus and was referred back to his ear pull machine operator today. He umbilical hernia is not symptomatic.? He continues to smoke 17 cigarettes a day and is reducing this number. He had a cyst removed from his back by the grain trader. Questions H ave you had any new [...] after dental work 1986upper endoscopy and colonoscopy, [facility], Dr. Quinton Campos 2009upper endoscopy, [facility], Dr. Quinton Campos, Palmer's esophagus 2014arteriogram right lower extremity 05/2019Right cwzre-qut-faqr amputation 02-04-2024 * Hospitalization/Major Diagno stic Procedure: [...] healthy grandchildren. One of his siblings has Wytgivz-Tahbv-Rwach disease. 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 He was born in [place], [place]. He came to [place] in 1984. He is with 6 children. He has 11 grandchildren. He is a of [employer]. He trained at [employer] and served in [employer]. * Medications: T akingMetoprolol Succinate ER 25 [...] endoscopy and was referred back to his ear pull machine operator, Dr. Quinton Campos. 8 . T [...] 09/30/2024 Generated for Tristen bustamante/Jai/Henrry on: 1 07:20 PM EDT History and Physical Notes * [...]
--- OUTSIDE RECORDS SUMMARY | 2024-10-15 13:00 | XMS_ITS ---
Author Organization Quinton Callahan III, MD Address [address] [place] [address] [place] [address] Care Team Providers Care Vegetable Scullion Name Role Phone Dr. Quinton Callahan III Primary Care Provider REASON FOR VISIT Annual Exam Social History Sex Assigned At : Social History Observation Description Sex Assigned At Male Encounters Encounter Location Date Provider Diagnosis Quinton Callahan III, MD [address] [place] [address] [place] [address] 10/15/2024 Quinton Callahan Plan Of Treatment Next Appt Details Provider Name:Quinton Callahan , 01/06/2025 02:30:00 PM, [address] [place] [address] [place], [address], Provider Name:Quinton Callahan , 12/08/2025 02:30:00 PM, [address] [place] [address] [place], [address], Progress Notes * Ana ENCINAShDOB:1960 (64 yo M)Acc No.[id number]:10/15/2024 Progress Notes Patient: Zan TONG Provider: Angeles Callahan MD :1960 A ge:64 Y S ex:Male Date:10/15/2024 Address:[address] [place] [address], [address] [place] [id number] Subjective: * Chief Complaints: * 1 . [...] 0 10/15/2024 Generated for Tristen bustamante/Jai/Henrry on: 07:20 PM EDT
--- OUTSIDE RECORDS SUMMARY | 2024-10-29 10:30 | XMS_ITS ---
Author Organization Quinton Callahan III, MD Address [address] [place] [address] [place] [address] Care Team Providers Care Page Designer Name Role Phone Dr. Quinton Callahan [...] Date Provider Diagnosis Quinton Callahan III, MD [address] [place] [address] [place] [address] 10/29/2024 Quinton Callahan Chronic osteomyeliti s of [...] endoscopy and was referred back to his lead miner blasting, Dr. Quinton Campos. 10/29/2024 Chronic obstructive pulmonary [...] Provider Name:Quinton Callahan , 01/06/2025 02:30:00 PM, [address] [place] [address] KAILYN JURADO, [place], [address], Provider Name:Quinton Callahan , 12/08/2025 02:30:00 PM, [address] [place] [address] KAILYN JURADO, [place], [address], Progress Notes * Ana ENCINAShDOB:1960 (64 yo M)Acc No.[id number]:10/29/2024 Patient: Zan TONG Provider: Angeles Callahan MD :1960 A ge:64 Y S ex:Male Date:10/29/2024 Address:[address] [place], [place] [id number] Subjective: * Chief Complaints: * R ight [...] after dental work 1986upper endoscopy and colonoscopy, [facility], Dr. Quinton Campos 2009upper endoscopy, [facility], Dr. Quinton Campos, Palmer's esophagus 2014arteriogram right lower extremity 05/2019Right gloiw-weh-rcwm amputation 02-04-2024 * Hospitalization/Major Diagno stic Procedure: [...] healthy grandchildren. One of his siblings has Vjfdzgv-Feotf-Raowp disease. 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 He was born in [place], [place]. He came to [place] in 1984. He is with 6 children. He has 11 grandchildren. He is a of [employer] He trained at [employer] and served in [employer]. * Medications: T akingAtorvastatin Calcium 10 MG [...] endoscopy and was referred back to his lead miner blasting, Dr. Quinton Campos. 5 . C hronic [...] 10/29/2024 Generated for Tristen bustamante/Jai/Allysonitting on: 1 07:19 PM EDT History and Physical Notes * [...]
--- OUTSIDE RECORDS SUMMARY | 2024-12-02 11:00 | XMS_ITS ---
Author Organization Quinton Callahan III, MD Address [address] [place] [address] Care Team Providers Care Rhic Systems Safety Engineer Name Role Phone Dr. Quinton Callahan [...] Date Provider Diagnosis Quinton Callahan III, MD [address] [place] [address] [place] [address] 12/02/2024 Quinton Callahan Chronic osteomyeliti s of [...] I today discussed the possibility of an frjaj-nrz-pbep amputation and what it would be like [...] endoscopy and was referred back to his biomedical equipment tech , Dr. Quinton Campos. 12/02/2024 Benign prostatic [...] Provider Name:Quinton Callahan , 01/06/2025 02:30:00 PM, [address] [place] [address] [address], [place], [address], Provider Name:Quinton Callahan , 12/08/2025 02:30:00 PM, [address] [place] [address] [place], [address], Progress Notes * Ana ENICNAShDOB:1960 (64 yo M)Acc No.[id number]:12/02/2024 Progress Notes Patient: Chuy MCCULLOUGHGERALDZan Provider: Angeles Callahan MD :1960 A ge:64 Y S ex:Male Date:12/02/2024 Address:[address] [place] [address], [place], [id number] Subjective: * Chief [...] likely he is going to need an szyke-onm-payw amputation but we will see what infectious disease service first. He also reports that he was bending forward his wheelchair to strip picker something on the floor he felt [...] for colonoscopy with Dr. Quinton Campos at [facility]. This is currently being arranged. PHQ-9 [...] after dental work 1986upper endoscopy and colonoscopy, [facility], Dr. Quinton Campos 2009upper endoscopy, [facility], Dr. Quinton Campos, Palmer's esophagus 2014arteriogram right lower extremity 05/2019Right nzbba-feq-leab amputation 02-04-2024 * Hospitalization/Major Diagno stic Procedure: [...] healthy grandchildren. One of his siblings has Qxcygkb-Erdro-Dawjp disease. 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 He was born in [place], [place]. He came to [place] in 1984. He is with 6 children. He has 11 grandchildren. He is a of [employer]. He trained at [employer] and served in [employer]. * Medications: T akingAtorvastatin Calcium 10 MG [...] I today discussed the possibility of an fbaou-oll-knto amputation and what it would be like walking. 3 . B arrett's esophagus determined by endoscopy - K22.70 N otes :He is due for an endoscopy and was referred back to his biomedical equipment tech, Dr. Quinton Campos. 4 . B enign [...] MD Date: Generated for Tristen bustamante/Jai/eTransmitting on: 07:18 PM EDT History and Physical Notes [...]
--- NOTE | 2024-12-10 16:30 | A.OFFVIS_ITS ---
Intake Visit Reasons: 1w/US Intake Note: patient presents today for: 1wk/US urology medications: tamsulosin blood thinners: aspirin US done: 12/05/24 today's PVR: 0mls Director Of Gift Planning Required: No Accompanied by: Self / Same As Patient Allergies No Known Allergies Allergy (Verified 12/10/24 21:50) Medication List - Last Reconciled 12/10/24 by BARBARA Saenz-GARCIA acetaminophen (Tylenol Extra Strength) 1,000 mg PO Q6H PRN albuterol sulfate 90 mcg/actuation 2 puffs inhalation Q4H PRN aspirin (Luis Low Dose Aspirin) 81 mg PO DAILY atorvastatin 10 mg PO DAILY gabapentin 600 mg PO BID levofloxacin 500 mg PO DAILY metoprolol succinate ER 25 mg PO DAILY Held on 10/23/24. Instructions: Resume on 11/10/24. Your metoprolol was held because your heart rate was low while in the hospital. Heart rate and blood pressure were well-controlled throughout hospital stay. Continue to hold metoprolol at this time until you follow up with your PCP to consider whether stopping medication or resuming it at a later date. [id number]-[id number]-[id number] mcg (Centrum Silver Men) 1 tab PO DAILY pantoprazole 80 mg PO DAILY@0630 tamsulosin 0.8 mg PO DAILY HPI Comments Details: Zan is a very pleasant 64-year-old male patient of Dr. Callahan. He has a past medical history of peripheral arterial disease, nicotine dependence, BPH, elevated cholesterol, AFib, Palmer's esophagus, GERD, and COPD. He presents to the office today for follow-up. Of note, patient was seen approximately 1 week ago at which time a renal ultrasound was ordered for further assessment evaluation question of renal cysts verses hydronephrosis. Recent renal imaging results were reviewed with the patient today 12/20 mild left hydronephrosis. Indeterminate heterogeneous region adjacent to the left kidney measuring 57 mm x 12 mm x 10 mm which is indeterminate. Further assessment renal protocol CT is recommended per radiology report. During last office visit recommendations were also made to obtain labs for further assessment evaluation however patient was unable to obtain these however he does plan to do so. He discusses his ongoing issues with healing to his right xmupy-ycu-zdsr amputation. He continues to follow-up with vascular and his PCP. He discusses upcoming appointment with infectious disease the end of this week. In office urinalysis results reviewed with the patient today. PVR 0 mL. He reports compliance with Flomax as prescribed and does feel this has been helpful in episodes of urinary hesitancy and nocturia he had been experiencing. He currently denies any bothersome urinary issues. We discussed obtaining CT renal mass protocol and importance of obtaining labs as planned. He is agreeable. All questions were answered. He discusses his ongoing issues with healing and has been following up with vascular as well as his primary care provider. In review of patient's chart it appears patient was hospitalized 01/19 as patient with prior right-sided popliteal bypasses with occlusion, status post placement of intra-arterial tPA catheter by vascular. On 01/08/2024 status post to repeat fluoroscopy with demonstration of improved graft patency, but with development of postprocedure left-sided retroperitoneal hematoma requiring pressor support and 3units RBC. Labs are as follows: BUN: 11/19 20, 01/19 16, 01/19 8, 01/19 13, 01/19 17, 01/19 18, 01/19 16, 01/19 23, 01/19 26, 01/19 27, 01/19 25, 01/19 19, 01/19 21, 01/19, 21, 01/19 16, 02/18 19, 02/18 11, 02/18 10, 05/20 16, 06/20 11, 10/20 18, 825 18, 10/20 13 Creatinine: 11/19 0.95, 01/19 , 01/19 0.68, 01/19 0.97, 01/19 1.41, 01/19 0.96, 01/19 0.88, 01/19 1.35, 01/19 1.17, 01/19 1.02, 01/19 0.90, 01/19 0.74, 01/19 0.91, 01/19 0.82, 01/19 0.80, 02/18 1/13, 02/18 0.82, 02/18 0.76, 05/20 0.80, 06/20 0.80, 06/20 0.84, 06/20 0.81, 06/20 0.79, 07/20 1.10, 10/20 1/15, 10/20 1.07, 10/20 0.94, 10/20 1.09, 10/20 1.14 He reports a longstanding history of urinary issues since the early ages of 28 when he had experienced prostatitis. In review of patient's chart it appears PSAs are as follows 04/21 1.1. He otherwise denies incontinence, hematuria, dysuria, foul smelling urine, flank pain, fever, and or chills. [facility] Medical History Peripheral arterial disease Below-knee amputation of right lower extremity Osteomyelitis Krish angina Left bundle branch block Bakers cyst Nicotine dependence, cigarettes, uncomplicated Arthritis BPH (benign prostatic hyperplasia) Elevated cholesterol Complex regional pain syndrome i of right lower limb S/P angiogram of extremity (07/18/23) Atrial fibrillation History of Palmer's esophagus Splenic vein thrombosis History of femoral angiogram GERD (gastroesophageal reflux disease) COPD (chronic obstructive pulmonary disease) Surgical History Hx of BKA History of tonsillectomy Hx of oral surgery Hx of tracheostomy History of esophagogastroduodenoscopy (EGD) H/O colonoscopy Social History Household Members: Family and Children Household Members Other:: Son, son girlfriend, grandbaby Housing: Apartment Housing Other:: 3 stairs to climb Are you a primary manager medicare marketing to a significant other at home: No Do you presently have visiting nurse or other home services: Yes Comment: Dr Knott made aware of absent pulse and sensation in right foot Patient Tobacco Use Status: Current everyday Tobacco user Tobacco use type: Cigarette Cigarette Packs Per Day: 1 Cigarettes Per Day: 20.0 Years Smoked: 50 e-Cigarette/Vaping Use: Never Used Second Hand Smoke Exposure: No Substance Use Type: Marijuana Advance Directives Date on File: 01/17/24 service: Yes Review of Systems Const Reports as per HPI Eyes Reports no additional complaints ENT Reports no additional complaints Card Reports as per HPI Resp Reports as per HPI GI Reports as per HPI Reports as per HPI Musc Reports as per HPI Skin/Breast Reports as per HPI Neuro Reports no additional complaints Psych Reports no additional complaints Endo Reports no additional complaints Matt/Lymph Reports as per HPI Aller/Immun Reports no additional complaints Physical Exam Const General: cooperative, healthy appearing, comfortable, no acute distress, well developed, alert and awake Orientation/consciousness: patient oriented x3 Limitations: wheelchair HEENT Head: Yes normal to inspection, Yes normocephalic and Yes atraumatic Ears: hearing grossly normal bilaterally Eyes General: appearance normal, both eyes and all related structures Neck Neck: Yes normal visual inspection and Yes trachea midline Chest Chest palpation & inspection: normal inspection of the chest Resp Effort & Inspection: normal respiratory effort and able to speak in complete sentences Cardio Rate: regular rate GI Inspection: Yes normal to inspection General: Yes no CVA tenderness Back/Spine/Pelvis Back: no CVA tenderness Skin General skin exam: no rashes or lesions noted Neuro General: patient oriented x3 Extrem Other: Patient with right zlygm-fmb-sfzo amputation Psych Appearance: grossly normal and well kempt Mental Status: mental status grossly normal Speech and movement: Normal speech and movement present and Clear speech present Affect: normal affect Attitude: cooperative Thought process: Normal thought process present Thought content: Normal thought content present Insight: Fair insight present (Psych) Judgement: Fair judgement present (Psych) Office Procedures Post Void Residual Post Residual Void Post Void Residual (PVR): 0 [id number]-[id number] Void Residual by ultrasound Results AMB Urinalysis, Automated UA Leukoctes 70 Karyna/uL Last Edit by HU Earl on 12/10/24 16:39 UA Nitrite Last Edit by HU Earl on 12/10/24 16:39 UA Urobilinogen 0.2 mg/dL Last Edit by HU Earl on 12/10/24 16:3 9 UA Protein 30 mg/dL Last Edit by HU Earl on 12/10/24 16:39 UA pH 5.5 Last Edit by HU Earl on 12/10/24 16:39 UA Blood 0 Tunde/uL Last Edit by HU Earl on 12/10/24 16:39 UA Specific [place] 1.020 Last Edit by HU Earl on 12/10/24 16: 39 UA Ketone Last Edit by HU Earl on 12/10/24 16:39 UA Bilirubin 1 mg/dL Last Edit by HU Earl on 12/10/24 16:39 UA Glucose 0 mg/dL Last Edit by HU Earl on 12/10/24 16:39 Results Reviewed Results Reviewed: Laboratory Last Values Urine pH (Auto) 5.5 12/10/24 16:38 Specific [place] (Auto) 1.020 12/10/24 16:38 Urine Protein (Auto) 30 mg/dL 12/10/24 16:38 Glucose (UA)(Auto) 0 mg/dL 12/10/24 16:38 Urine Blood (Auto) 0 Tunde/uL 12/10/24 16:38 Urine Bilirubin (Auto) 1 mg/dL 12/10/24 16:38 Urine Urobilinogen (Auto) 0.2 mg/dL 12/10/24 16:38 Leukocyte Esterase (Auto) 70 Karyna/uL 12/10/24 16:38 Date of Service: 12/04/24 Procedure(s): US renal BI Findings: Right kidney normal size and echotexture, 12.4 cm length. Left kidney normal size and echotexture, 11.7 cm length. Mild left hydronephrosis. Heterogeneous region of echogenicity lateral to the left kidney measuring 57 mm x 12 mm x 10 mm which is indeterminate. No hydronephrosis of either kidney. Normal color Doppler IMPRESSION: 1. Mild left hydronephrosis. 2. Indeterminate heterogeneous region adjacent to the left kidney as described above. Further assessment with renal protocol CT is recommended. Assessment & Plan Assessment & Plan (1) Renal cyst: Code(s): N28.1 - Cyst of kidney, acquired Category: Medical (2) BPH (benign prostatic hyperplasia): Code(s): N40.0 - Benign prostatic hyperplasia without lower urinary tract symptoms Category: Medical (3) Hydronephrosis: Code(s): N13.30 - Unspecified hydronephrosis Category: Medical Plan In office urinalysis results with the patient today; as noted above. Recent renal imaging results reviewed with the patient today; as noted above. Continue Flomax. We discussed importance of obtaining labs as discussed (BUN/creatinine/PSA) He currently denies any bothersome urinary issues or concerns. He reports be happy with current voiding parameters. Continue to follow-up with PCP, infectious disease, and vascular as planned. Will obtain CT renal mass protocol We also discussed the importance of limiting/quitting nicotine dependence for overall health and well-being Follow-up in 1-3 months with imaging, labs, and PVR; or sooner with any issues, concerns, and or questions. Orders: Orders AMB Post Void Residual by ultrasound Today N40.0 - Benign prostatic hyperplasia without lower urinary tract symptoms CT abdomen pelvis wo/w IV con Today N28.1 - Cyst of kidney, acquired AMB Urinalysis Automated Today Z13.9 - Encounter for screening, unspecified Patient Instructions: The patient had an opportunity to ask questions regarding the treatment plan. All questions were answered. Physical exam, labs, and imaging were discussed and reviewed in detail. As well as risks, benefits, and discussion of treatment ch oices. No major barriers to understanding were identified. The patient expressed understanding and agreement with the above treatment plan. The patient was made aware they should contact our office by phone for worsening of their current condition, the appearance of new symptoms, or with any questions or concerns. Compliance is encouraged with any medications and follow up testing that is ordered. It is a privilege to be allowed the opportunity to participate in? your urological care.? Again, if you have any questions or concerns If you have any questions or concerns please do not hesitate to contact me. The office is [phone]. This note is constructed using voice recognition software. While every effort has been made to ensure accuracy equipment associate errors may have been included. Yours sincerely, JUNIOR Saenz Coding Level of Care Code Est Pt Level 3 (13257) Complex EM visit Add On G2211 Diagnoses Renal cyst N28.1 BPH (benign prostatic hyperplasia) N40.0 Hydronephrosis N13.30 CPT Codes Post Residual Void - PVR CPT Code: 81308-Wmcl Void Residual by ultrasound ([id number])
--- OUTSIDE RECORDS SUMMARY | 2024-12-10 19:18 | XMS_ITS | Clinical Summary ---
Author Organization [facility] Address [address] [place] [address] Phone Care Team Providers Care Data Mining Analyst Name Role Phone Quinton Callahan MD Primary Care Provider +1- [phone] Allergies No known active allergies Medications oxyCODONE-aceta [...] this topic Medical Devices Implanted Type Area Hyperion Administrator Device Identifier Shelf Expiration Date Model / Serial / Lot Graft Vascular 6.0mmx60 70cm Propaten Heparin Carmeda Bioactive Surface Thin Wall Removable Ring Stretch - [id number] Implanted:Qty: 1 on 12/02/2023 by Percy Segundo MD at [facility] STANDARD Right: Vein [employer] [id number] 08/13/2026 [id number] / [id number] / Metal Clip Celd Left Groin 10/2023 Stent Right Femoral Artery Patch Pericardium 2cm 9cm Decellularized Bovine [employer] - [id number] Implanted:Qty: 1 on 12/02/2023 by Percy Segundo MD at [facility] Right: Vein [employer] [id number] 03/24/2025 [id number] / / [id number] Procedures Procedure Name Priority Date/Time Associated Diagnosis Comments BASIC METABOLIC PANEL Routine 02/18/2024 8:01 AM EST Aftercare for amputation stump LIPID PANEL Routine 11/28/2023 1:21 AM EDT from Last 3 Months or Most Recently Relevant to Health Maintenance Results * (ABNORMAL) Basic metabolic panel (02/18/2024 8:01 AM EST) SODIUM 137 133 - 146 mmol/L [facility] CHLORIDE 102 96 - 108 mmol/L [facility] POTASSIUM 4.4 3.3 - 5.1 mmol/L [facility] CO2 25 21 - 35 mmol/L [facility] BUN 13 6 - 19 mg/dL [facility] CREATININE 0.70 0.5 - 1.5 mg/dL [facility] GLUCOSE 101(H) 70 - 99 mg/dL [facility] CALCIUM 9.7 8.4 - 10.3 mg/dL [facility] EGFR 102 >59 mL/min/1.7 3m2 [facility] Comment:Estimated glomerular filtration rate calculated using the CKD-EPI refit equation. ANION GAP 14 10 - 20 mmol/L [facility] Blood 02/18/2024 8:01 AM EST 02/18/2024 10:00 AM EST us Garrett Fletcher MD LAB BLOOD ORDERABLES Final Resul t [facility] [address] [place] [address] * Lipid panel (11/28/2023 1:21 AM EDT) CHOLESTEROL 125 <200 mg/dL [facility] TRIGLYCERIDES 60 35 - 150 mg/dL [facility] HDL 60 40 - 80 mg/dL [facility] CALCULATED LDL 53 50 - 129 mg/dL [facility] VLDL 12 <31 mg/dL [facility] CARDIAC RISK RATIO 2.1 0.0 - 4.0 [facility] Blood 11/28/2023 1:21 AM EDT 11/28/2023 1:35 AM EDT Ayla Owens PA-C LAB BLOOD ORDERABLES Clementina rossi Result [facility] [address] [place] [phone] from Last 3 Months or Most Recently Relevant to Health Maintenance Insurance [employer] PPO MEDICARE REPLACEMENT MEDICARE PART A & B [employer]ET[employer] [facility] MEDICARE REPLACEMENT MEDICARE PART A & B [employer] O MEDICARE REPLACEMENT MEDICARE PART A & B [employer] PPO MEDICARE REPLACEMENT MEDICARE PART A & B [facility] MEDICARE REPLACEMENT MEDICARE PART A & B [facility] MEDICARE REPLACEMENT MEDICARE PART A & B Advance Directives For more information, please contact: [phone] (9AM - 5PM Swati/[facility] [place], Sunday-Sunday) * Full Code (Latest Code Status on File) Date Activated Date Inactivated Comments 11/27/2023 4:16 PM Question Answer Comments Code Status Confirmed With: Patient Care Teams Data Mining Analyst Relationship Specialty Start Date End Date Quinton Callahan MD [address] [place] [address] [address] [place] [address] PCP - General Medical Oncology 11/23/23 Additional Source Comments The information contained in this document represents components of the legal health record. It is not the complete legal health record.[facility]
--- OUTSIDE RECORDS SUMMARY | 2024-12-10 19:19 | XMS_ITS | Encounter Summary ---
Author Organization [facility] Address [address] [place] [address] [place] [phone] Phone Care Team Providers Care Mounter Clarinets Name Role Phone Quinton Callahan MD Primary Care Provider +1- [phone] Encounter Details Date Type Department Care Team (Late st Contact Info) Description 11/28/2023 Procedure [facility] [address] [place] [address] Social History Tobacco Use Types Packs/Day Years [...] on filedocumented in this encounter Care Teams Mounter Clarinets Relationship Specialty Start Date End Date Quinton Callahan MD [address] [place] [address] [place] [address] PCP - General Medical Oncology 11/23/23 documented as of this encounter Additional Source Comments The information contained in this document represents components of the legal health record. It is not the complete legal health record.[facility]
--- OUTSIDE RECORDS SUMMARY | 2024-12-10 19:19 | XMS_ITS | Data Portability ---
Author Organization [facility], Main Office Address [address] [place] [address] 204 [address] [place] [address] Care Team Providers Care Dry Curer Name Role Phone [facility] OTHER KEON HEREDIA Primary Care Provider [phone] Assessment Encounter Date Assessment Date Assessment LastModified [...] Organization Details Recorded Time Blood in urine 20199791 Active [address], [address], [place], [address], [facility] 4 10:17:42 Benign prostatic hyperplasia 722918635 Active [address], [address], [place], [address], [facility] 4 10:17:40 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 Active [address], [address], [place], [address], [facility] 4 10:18:23 Limb ischemia 2375769080161 5 Active [address], [address], [place], [address], [facility] 4 10:19:49 Peripheral arterial disease 802773745 Active [address], [address], [place], [address], [facility] 4 10:21:45 Chronic obstructive pulmonary disease 98871548 Active [address], [address], [place], [address], [facility] 4 10:22:55 Gastroesoph ageal reflux disease 345836214 Active [address], [address], [place], [address], [facility] 4 10:23:11 Smoker 40269083 Active [address], [address], [place], [address], [facility] 4 10:23:08 Essential hypertensio n 36807577 Active [address], [address], [place], [address], [facility] 4 10:25:41 Hyperlipide angela 91311117 Active [address] [place] [address], [address], [place], [address], [facility] 4 10:49:02 Peripheral vascular disease 822482015 Active [address] [facility], [address], [place], [address], [facility] 4 10:49:07 Thrombosis of splenic artery 0987019148858 9106 Active [address] [facility], [address], [place], [address], [facility] 4 10:49:17 Left bundle branch block 77870365 Active [address] 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, [address], [place], [address], [facility] 4 10:50:44 Problem Notes None recorded. [...] Every Day Smoker Iveth Diaz MD [address] [facility], [address], [place], [address], [facility] 02/11/2024 18:13:51 Do You Have An [...] Do You Have A Medical Power Of Cadastral Surveyor? Yes Information not available 02/11/2024 What Was [...] (COVID-19) vaccine, UNSPECIFIED 06/25/2020 completed Nikia Montes [facility] 02/11/2024 12:20:14 SARS-COV-2 (COVID-19) vaccine, UNSPECIFIED 07/27/2020 completed Nikia Montes [facility] 02/11/2024 12:20:24 Past Encounters Encounter ID Performer Location Encounter Start Date Encounter Closed Date Diagnosis/Indication Diagnosis SNOMED-CT Code Diagnosis ICD10 Code Diagnosis IMO Codes Diagnosis Note [id number] SAMANTHA BROWNE [address] [address] 02/10/2024 10:12:50 02/11/2024 14:36:04 Limb ischemia 9108765545 9105 I99.8 now s/p right BKA due [...] daily due to bleeding Peripheral arterial insufficiency 5931781415 51816 I73.9 see aboveASA 81 mg dailyfollo wed by vascular Benign pro static hyperplasia 385348334 N40.0 continue flomax 0.8 mg qhsmonitor for outflow issues Gastroesop hageal reflux disease 441024575 K21.9 pantoprazo le 80 mg dailyconsi lia reduction if toleratesm onitor reflux Blood in urine 70462796 R31.9 had inpatientm onitor for clearing Chronic ob structive pulmonary disease 47634050 J44.9 albuterol PRNincruse dailywixel a BIDmonitor resp status Essential hypertension 49751372 I10 assumed as pt is on metoprolol 25 mg daily but no documented [facility] Constipation 07258748 K5 9.00 add colace 100 mg BIDmonitor for improvemen t [id number] Iveth Diaz MD [facility] [address] [address] 02/11/2024 15:43:03 02/12/2024 15:32:16 Limb ischemia 3317766092 9105 I99.8 Will change oxycodone to 10 [...] with surgeon as planned. Peripheral arterial insufficiency 0481859309 19007 I73.89 Z89.511 As above. Benign pro static hyperplasia 993511191 N40.0 No current sxs.Contin ue tamsulosin 0.8 mg qhsMonitor urinary function Gastroesop hageal reflux disease 611461710 K21.9 No current sxs.Contin ue pantoprazo le 80 mg qdMonitor GI sxs. Blood in urine 00906551 R31.0 Had one episode inpt.Now resolved.M onitor for recurrence . Chronic ob structive pulmonary disease 37157686 J43.8 Resp status good at this time.Liv nue incruse ellipta qd, Wixela 500/50 BID, duonebs BID prn and albuterol MDI 2 puffs q 4 hrs prn.Monito r resp status. Essential hypertension 45114107 I10 In good control since here (HTN is on PCP problem list)Liv nue metoprolol 25 mg qdMonitor BP and labs. Constipation 35458813 K5 9.03 Will add miralax 17 gms qd and continue colace 100 mg BIDUse prn meds if needed.Mon itor bowel function. [id number] Nam CONKLIN AT [address] [address] 02/15/2024 10:31:46 02/18/2024 15:29:05 Postoperative wound cellulitis 458168531 L76.82 exam concerning for cellulitis with increased foul smelling discharges tart doxycyclin e 100mg BID x 10 days, probiotic qd x 14 dayscheck CBC w/diff, BMP obtain x-ray R stump r/o osteomonit or for worsening sxs Amputated below knee 299 867529 Z89.519 As above. Limb ischemia 3825370652 9105 I99.8 continue oxycodone to 10 mg q 6 hrs scheduled x 7 days, then 10 mg q 8 hrs scheduled x 7 days then 5 mg q 8 hrs prn.Add oxycodone 10mg q24h prn breakthrou gh paincontin ue APAP 975 mg TID and increase gabapentin to 600 mg TID.Contin ue ASA 81 mg qdF/U with surgeon as planned. [id number] Nam CONKLIN AT [address] [address] 02/19/2024 07:36:20 02/21/2024 12:23:04 Postoperative wound cellulitis 813202310 L76.82 Continue doxycyclin e 100mg BID x 10 days, probiotic qd x 14 dayslabs and x-ray unremarkab lemonitor for resolution Limb ischemia 1729568943 9105 I99.8 continue oxycodone 10 mg q 8 hrs scheduled x 7 days then 5 mg q 8 hrs prn. oxycodone 10mg q24h prn breakthrou gh paincontin ue APAP 975 mg TID and gabapentin to 600 mg qam and afternoon, 900mg qhsContinu e ASA 81 mg qdconsult PMR management of painF/U with surgeon as planned. Amputated below knee 299 919650 Z89.519 As above. [id number] Brandenmkasad Herrera RUBIN AT [address] [address] 02/22/2024 09:19:49 02/25/2024 15:55:50 Postoperative wound cellulitis 622556479 L76.82 Continue doxycyclin e 100mg BID x 10 days, probiotic qd x 14 dayslabs and x-ray unremarkab lemonitor for resolution Limb ischemia 0185892771 9105 I99.8 continue oxycodone 10 mg q 8 hrs scheduled x 7 days then 5 mg q 8 hrs prn. oxycodone 10mg q24h prn breakthrou gh paincontin ue APAP 975 mg TID and gabapentin to 600 mg qam and afternoon, 900mg qhsContinu e ASA 81 mg qdconsult PMR management of painF/U with surgeon as planned. Amputated below knee 299 705937 Z89.519 As above. [id number] Nam DUNCANLEY AT [address] [address] 02/25/2024 07:30:39 02/26/2024 13:58:50 Postoperative wound cellulitis 682830012 L76.82 resolvedmo nitor for recurrence Limb ischemia 5732235062 9105 I99.8 continue oxycodone 10 mg q 8 hrs scheduled x 7 days then 5 mg q 8 hrs prn. oxycodone 10mg BID prn breakthrou gh paincontin ue APAP 975 mg TID, INcrease gabapentin to 900 mg qam and afternoon, 900mg qhsContinu e ASA 81 mg qdconsult PMR management of painF/U with surgeon as planned. Amputated below knee 299 273261 Z89.519 As above. [id number] Nam CONKLIN AT [address] [address] 02/28/2024 08:43:00 02/29/2024 10:22:21 Limb ischemia 8245507329 9105 I99.8 continue oxycodone 10 mg q 8 hrs scheduled x 7 days then 5 mg q 8 hrs prn. oxycodone 10mg BID prn breakthrou gh paincontin ue APAP 975 mg TID, gabapentin to 900 mg TIDContinu e ASA 81 mg qdconsult PMR management of painF/U with surgeon as planned. Amputated below knee 299 868070 Z89.519 As above. [id number] MD RUBIN Enciso AT [address] [address] 03/03/2024 11:24:29 03/27/2024 10:48:50 Limb ischemia 6262104198 9105 I99.8 s/p amputation cleared for discharge with services and ortho f/u in placedisch arged on oxycodone 5 mg q 8 prn pain #23 tablets given at time of dischargep atient will need appointmen t with PCP for f/u discussed with nursing to schedule prior to discharge Amputated below knee 299 814724 Z89.519 As above. 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 Sanchez_Cooper-Aaron vis [address] [facility], [address], [place], [address], [facility] 02/22/2024 11:16:10 02/25/2024 text/html This is a 63 yo man who is being seen for acute rounding visit Patient doing well todayPain controlled with oxycodone. Gabapentin increased last week at f/u vascular with IM[facility]ment. Reported increased pain over the weekend with 1x dose oxycodone 10mg.Actively participating in therapyself-propelling around unit in w/cPMR consulted Patient seen sitting in room in bed in [facility]. 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 [facility]Cooper[facility]Aaron vis [address] [facility], [address], [place], [address], [facility] 02/25/2024 11:08:05 02/28/2024 text/html This is a 63 yo man who is being seen for acute rounding visit Patient had f/u vascular on 02/25recs to continue with daily dressing changes noted with small open area on medial aspectNo appointment setter or prosthesis yet. The site needs to be completely healed first. Can increase gabapentin 900mg TID and decrease oxycodone.f/u 03/11/24 Patient seen lying in bed with manufacturing quality manager doing dressing change. 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 A_Tremblay-Da vis [address] [facility], [address], [place], [address], [facility] 02/28/2024 12:14:07 03/03/2024 text/html Patient is a [...] f/u in place Garrett Fletcher MD [address] [facility], [address], [place], [address], [facility] 03/03/2024 11:33:58
--- OUTSIDE RECORDS SUMMARY | 2024-12-10 19:19 | XMS_ITS | Encounter Summary ---
Author Organization [facility] Address [address] [place] [address] [place] [address] Phone Care Team Providers Care Coding Technician Name Role Phone Quinton Callahan MD Primary Care Provider +1- [phone] Encounter Details Date Type Department Care Team (Late st Contact Info) Description 11/28/2023 Procedure Pass [facility] [address] [place] [address] Social History Tobacco Use Types Packs/Day Years [...] on filedocumented in this encounter Care Teams Coding Technician Relationship Specialty Start Date End Date Quinton Callahan MD [address] [place] [address] [place] [address] PCP - General Medical Oncology 11/23/23 documented as of this encounter Additional Source Comments The information contained in this document represents components of the legal health record. It is not the complete legal health record.[facility]
--- OUTSIDE RECORDS SUMMARY | 2024-12-10 19:19 | XMS_ITS | Encounter Summary ---
Author Organization [facility] Address [address] [place] [address] [place] [address] Phone Care Team Providers Care Repairer Pump Name Role Phone Quinton Callahan MD Primary Care Provider +1- [phone] Encounter Details Date Type Department Care Team (Late st Contact Info) Description 11/28/2023 Procedure [facility] [address] [place] [address] Social History Tobacco Use Types Packs/Day Years [...] on filedocumented in this encounter Care Teams Repairer Pump Relationship Specialty Start Date End Date Quinton Callahan MD [address] [place] [address] [place] [address] PCP - General Medical Oncology 11/23/23 documented as of this encounter Additional Source Comments The information contained in this document represents components of the legal health record. It is not the complete legal health record.[facility]
--- OUTSIDE RECORDS SUMMARY | 2024-12-10 19:19 | XMS_ITS | Encounter Summary ---
Author Organization [facility] Address [address] [place] [address] [place] [address] Phone Care Team Providers Care Practical Ministries Professor Name Role Phone Quinton Callahan MD Primary Care Provider +1- [phone] Encounter Details Date Type Department Care Team (Late st Contact Info) Description 12/08/2023 Procedure Pass [facility] EKG [address] [place] [address] Social History Tobacco Use Types Packs/Day Years [...] on filedocumented in this encounter Care Teams Practical Ministries Professor Relationship Specialty Start Date End Date Quinton Callahan MD [address] [place] [address] [place] [address] PCP - General Medical Oncology 11/23/23 documented as of this encounter Additional Source Comments The information contained in this document represents components of the legal health record. It is not the complete legal health record.[facility]
--- OUTSIDE RECORDS SUMMARY | 2024-12-10 19:19 | XMS_ITS | Encounter Summary ---
Author Organization [facility] Address [address] [place] [address] [place] [address] Phone Care Team Providers Care Gas Shovel Operator Name Role Phone Quinton Callahan MD Primary Care Provider +1- [phone] Encounter Details Date Type Department Care Team (Late st Contact Info) Description 12/02/2023 Procedure Pass [facility] Periop [address] [place] [address] Social History Tobacco Use Types Packs/Day Years [...] on filedocumented in this encounter Care Teams Gas Shovel Operator Relationship Specialty Start Date End Date Quinton Callahan MD [address] [place] [address] [place] [address] PCP - General Medical Oncology 11/23/23 documented as of this encounter Additional Source Comments The information contained in this document represents components of the legal health record. It is not the complete legal health record.[facility]
--- OUTSIDE RECORDS SUMMARY | 2024-12-10 19:19 | XMS_ITS | Patient Health Record ---
Author Organization Quinton Callahan III, MD Address [address] [place] [address] Care Team Providers Care Cement Despatch Operator Name Role Phone Dr. Quinton Callahan III Primary Care Provider Allergies Allergen (clinical drug ingredient) Drug/Non Drug Allergy documented on EMR Reaction Allergy Type Onset Date Status No Known Drug Allergy Unknown Drug Allergy Active No Known Food Allergy Unknown Drug Allergy Active Results Component Value Reference Range Notes Cancelled Chem Reviewed date:01/07/2024 01:28:15 PM Interpretation: Performing Lab:[facility], [address] [place] [phone] Notes/Report: Cancelled Chem SEE NOTE NO SPECIMEN R ECEIVED FOR BUN AND CREAT US arterial duplex LE RT Reviewed date:01/24/2024 07:41:27 AM Interpretation: Performing Lab: Notes/Report: [address] [address] Ultrasound Report Signed Patient: Zan Encinas MR#: [id number] : 1960 Acct:[id number] Age/Sex: 63 / M ADM Date: 01/01/24 Loc: HO.US Attending Dr: Bimal Knott MD Ordering Physician: Sera Saxena PA-C Date of Service: 01/01/24 Procedure(s): US arterial duplex LE RT Accession Number(s): [id number] cc: Quinton Callahan MD; Sera Saxena PA-C [...] by: Coleman Chaidez MD 01/23/2024 01:03 PM [facility] Dictated By: Coleman Chaidez MD Signed By: <Electronically signed by Coleman Chaidez MD in OV> 01/23/24 1303 DD/ 1430 TD/TT: 01/01/24 1517 Liaison Engineer: [address] [address] Ultrasound Report Signed Patient: Zan Encinas MR#: [id number] : 1960 Acct:[id number] Age/Sex: 63 / M ADM Date: 01/01/24 Loc: HO.US Attending Dr: Bimal Knott MD Ordering Physician: Sera Saxena PA-C Date of Service: 01/01/24 Procedure(s): US arterial duplex LE RT Accession Number(s): [id number] cc: Quinton Callahan MD; Sera Saxena PA-C [...] by: Coleman Chaidez MD 01/23/2024 01:03 PM [facility] Dictated By: Coleman Chaidez MD Signed By: <Electronically signed by Coleman Chaidez MD in OV> 01/23/24 1303 DD/ 1430 TD/TT: 01/01/24 1517 Liaison Engineer: Complete Blood Count Auto Di ff Reviewed date:01/07/2024 01:28:15 PM Interpretation: Performing Lab:[address] [address] Notes/Report: White Blood Count 8.2 4.8-10.8 X10*3/uL [...] Drip Reviewed date:01/08/2024 08:33:39 AM Interpretation: Performing Lab:[facility], [address] [place] [phone] Notes/Report: PTT Heparin Drip 33.9 53-77.9 SEC For information regarding the monitoring of heparin therapy, please refer to Pharmacy. Fibrinogen Reviewed date:01/08/2024 08:33:39 AM Interpretation: Performing Lab:[facility], [address] [place] [phone] Notes/Report: Fibrinogen 465 259-690 MG/DL Blood Urea Nitrogen Reviewed date:01/07/2024 01:28:15 PM Interpretation: Performing Lab:[facility], [address] [place] [phone] Notes/Report: Blood Urea Nitrogen 16 9-16 mg/dL Creatinine Reviewed date:01/07/2024 01:28:15 PM Interpretation: Performing Lab:[address] [phone] Notes/Report: Creatinine 0.81 0.5-1.4 mg/dL Creatinine Clr Calc Pharmacy 99.7 eGFR (calculated from the MDRD study equation) and eCrCl (calculated from the Cockcroft-Gault equation) are based on different parameters and may not yield comparable results. If eCrCl result is absurd, please check patient's height/weight. Estimated Glomerular Filt Rate > 60 NOTE: For -[place] individuals, multiply the result by 1.210. Chronic Kidney Disease: Estimated GFR < 60 mL/min/1.73m2 Severe Kidney Disease: Estimated GFR < 15 mL/min/1.73m2 ACT LR Reviewed date:01/16/2024 08:51:12 AM Interpretation: Performing Lab:[address] [address] Notes/Report: out of range low [id number] HO.MARUSA 0906 HO.MULVEC Fibrinogen Reviewed date:01/08/2024 08:33:39 AM Interpretation: Performing Lab:[address] [address] Notes/Report: Fibrinogen 445 259-690 MG/DL Complete Blood Count no Diff Reviewed date:01/10/2024 09:47:57 AM Interpretation: Performing Lab:[facility], [address] [place] [phone] Notes/Report: White Blood Count 28.7 4.8-10.8 X10*3/uL [...] ff Reviewed date:01/08/2024 08:33:39 AM Interpretation: Performing Lab:[facility], [address] [place] [phone] Notes/Report: White Blood Count 10.1 4.8-10.8 X10*3/uL [...] gy Reviewed date:01/08/2024 02:05:08 PM Interpretation: Performing Lab:[facility], [address] [place] [phone] Notes/Report: Hold Lav - Possible Hematology SEE NOTE Specimen will be held untested for 8 hours. Call Hematology if testing is desired. PTT Heparin Drip Reviewed date:01/08/2024 08:33:39 AM Interpretation: Performing Lab:[facility], [address] [place] [phone] Notes/Report: PTT Heparin Drip 40.9 53-77.9 SEC For information regarding the monitoring of heparin therapy, please refer to Pharmacy. Fibrinogen Reviewed date:01/08/2024 08:33:39 AM Interpretation: Performing Lab:[facility], [address] [place] [phone] Notes/Report: Fibrinogen 432 259-690 MG/DL Basic Metabolic Panel Reviewed date:01/08/2024 08:33:39 AM Interpretation: Performing Lab:[facility], [address] [place] [phone] Notes/Report: Sodium 138 135-145 mmol/L Potassium 3.8 [...] Phosphorus Reviewed date:01/08/2024 08:33:39 AM Interpretation: Performing Lab:[address] [address] Notes/Report: Phosphorus 2.9 2.7-4.5 mg/dL Magnesium Reviewed date:01/08/2024 08:33:39 AM Interpretation: Performing Lab:[address] [address] Notes/Report: Magnesium 1.8 1.6-2.6 mg/dL Albumin Level Reviewed date:01/08/2024 08:33:39 AM Interpretation: Performing Lab:[address] [address] Notes/Report: Albumin Level 3.2 3.5-5.0 g/dL ACT LR Reviewed date:01/11/2024 01:49:27 PM Interpretation: Performing Lab:[address] [address] Notes/Report: 109 [id number] HO.MARUSA 0846 HO.MULVEC ACT 109 79-173 Celite s Results are converted to a reference Celite ACT value in seconds. A reference interval is unavailable for ACT. Kathy Flores Reviewed date:01/08/2024 02:05:08 PM Interpretation: Performing Lab:[address] [address] Notes/Report: Kathy Flores See Note Specimen held untested for 24 hours; Call to request Chemistry testing. SLIDE REVIEW Reviewed date:01/08/2024 02:05:08 PM Interpretation: Performing Lab:[address] [address] Notes/Report: SLIDE REVIEW VERIFIED Type and Screen Reviewed date:01/11/2024 01:49:26 PM Interpretation: Performing Lab:[facility], [address] [place] [phone] Notes/Report: Results at Issue Units as of [...] Cells Reviewed date:01/11/2024 01:49:26 PM Interpretation: Performing Lab:[facility], [address] [place] [phone] Notes/Report: Red Blood Cells [id number] ON RC Red Blood Cells TRANSFUSED 01/09/24 0929 Red Blood Cells [id number] OP RC Red Blood Cells TRANSFUSED 01/09/24 1520 Red Blood Cells [id number] OP RC Red Blood Cells TRANSFUSED 01/10/24 0154 Red Blood Cells [id number] OP RC Red Blood Cells TRANSFUSED 01/10/24 1938 Red Blood Cells [id number] OP RC Red Blood Cells TRANSFUSED 01/10/242025 Red Blood Cells [id number] OP RC Red Blood Cells TRANSFUSED 01/10/24 2156 Red Blood Cells [id number] OP RC Red Blood Cells TRANSFUSED 01/10/242025 Red Blood Cells [id number] OP RC Red Blood Cells TRANSFUSED 01/11/24 0159 Red Blood Cells [id number] OP RC Red Blood Cells TRANSFUSED 01/11/24 0159 Arterial Blood Gases - POC Reviewed date:01/08/2024 02:05:08 PM Interpretation: Performing Lab:[facility], [address] [place] [phone] Notes/Report: ABG pH 7.42 7.35-7.45 METER #: [id number] additional_comment: Cbgreavet ctrbpavlova ABG pCO2 34 32-45 mmHg METER #: [id number] additional_comment: Cbgreavet ctrbpavlova ABG pO2 95 83-108 mmHg METER #: [id number] additional_comment: Cbgreavet ctrbpavlova ABG Base Excess -1.2 METER #: [id number] additional_comment: Cbgreavet ctrbpavlova ABG HCO3 22 22-26 mmol/L METER #: [id number] additional_comment: Cbgreavet ctrbpavlova ABG O2 % Saturation 99.0 METER #: [id number] additional_comment: Cbgreavet ctrbpavlova Pheresis Platelets Reviewed date:01/11/2024 01:49:27 PM Interpretation: Performing Lab:[facility], [address] [place] [phone] Notes/Report: Pheresis Platelets [id number] OP PHPLT Pheresis Platelets TRANSFUSED 01/11/24 0133 Hold Green Gel Reviewed date:01/08/2024 02:05:08 PM Interpretation: Performing Lab:[facility], [address] [place] [phone] Notes/Report: Hold Green Gel See Note Specimen held untested for 24 hours; Call to request Chemistry testing. Fresh Frozen Plasma Reviewed date:01/11/2024 01:49:27 PM Interpretation: Performing Lab:[facility], [address] [place] [phone] Notes/Report: Fresh Frozen Plasma [id number] AP FFP Fresh Frozen Plasma TRANSFUSED 01/11/24 0159 Fresh Frozen Plasma [id number] OP FFP Fresh Frozen Plasma TRANSFUSED 01/10/[address] abdomen pelvis w con Reviewed date:01/08/2024 02:05:08 PM Interpretation: Performing Lab: Notes/Report: [address] [address] [address] Scan Report Signed Patient: Zan Encinas MR#: [id number] : 1960 Acct:[id number] Age/Sex: 63 / M ADM Date: 01/07/24 Loc: [facility] 255-[address]: Bimal Knott MD Ordering Physician: Sawyer Case MD Date of Service: 01/08/24 Procedure(s): CT abdomen pelvis w IV con Accession Number(s): [id number] cc: Quinton Callahan MD; Sawyer Case MD [...] right superficial femoral vein. There are likely [place] bypass femoral, bilaterally.. OSSEOUS STRUCTURES: Multilevel thoracolumbar [...] by: Theo Stern MD 01/08/2024 12:21 PM [facility] Dictated By: Theo Lagunas MD Signed By: <Electronically signed by Theo Steven MD in OV> 01/08/24 1221 DD/ 1105 TD/TT: 01/08/24 1125 Liaison Engineer: [place] [address] CT Scan Report Signed Patient: Zan Encinas MR#: [id number] : 1960 Acct:[id number] Age/Sex: 63 / M ADM Date: 01/07/24 Loc: [facility] 255-[address]: Bimal Knott MD Ordering Physician: Sawyer Case MD Date of Service: 01/08/24 Procedure(s): CT abd omen pelvis w IV con Accession Number(s): [id number] cc: Quinton Callahan MD; Swayer Case MD EXAMINATION: CT ABDOMEN AND PELVI [...] right superficial femoral vein. There are likely [place] bypass femoral, bilaterally.. OSSEOUS STRUCTURES: Multilevel thoracolumbar [...] 01/08/24 1221 DD/ 1105 TD/TT: 01/08/24 1125 Liaison Engineer: Fibrinogen Reviewed date:01/08/2024 08:33:39 AM Interpretation: Performing Lab:[facility], [address] [place] [phone] Notes/Report: Fibrinogen 441 259-690 MG/DL Complete Blood Count Auto Di ff Reviewed date:01/08/2024 02:05:08 PM Interpretation: Performing Lab:[facility], [address] [place] [phone] Notes/Report: White Blood Count 20.0 4.8-10.8 X10*3/uL [...] Drip Reviewed date:01/08/2024 02:05:08 PM Interpretation: Performing Lab:[facility], [address] [place] [phone] Notes/Report: PTT Heparin Drip > 200.0 53-77.9 SEC Results of PTT-HD called to and read back by MARIELA on 01/08/24 at 1155 by FROY. For information regarding the monitoring of heparin therapy, please refer to Pharmacy. Basic Metabolic Panel Reviewed date:01/10/2024 09:47:57 AM Interpretation: Performing Lab:[facility], [address] [place] [phone] Notes/Report: Sodium 134 135-145 mmol/L Potassium 4.9 [...] Phosphorus Reviewed date:01/10/2024 09:47:57 AM Interpretation: Performing Lab:[facility], [address] [place] [phone] Notes/Report: Phosphorus 4.1 2.7-4.5 mg/dL Magnesium Reviewed date:01/10/2024 09:47:57 AM Interpretation: Performing Lab:[facility], [address] [place] [phone] Notes/Report: Magnesium 1.9 1.6-2.6 mg/dL Complete Blood Count Auto Di ff Reviewed date:01/10/2024 09:47:57 AM Interpretation: Performing Lab:[facility], [address] [place] [address] Notes/Report: White Blood Count 21.8 4.8-10.8 X10*3/uL [...] REVIEW Reviewed date:01/10/2024 09:47:57 AM Interpretation: Performing Lab:[facility], [address] [place] [phone] Notes/Report: SLIDE REVIEW VERIFIED ACT LR Reviewed date:01/11/2024 01:49:27 PM Interpretation: Performing Lab:[facility], [address] [place] [address] Notes/Report: 203 [id number] HOASHLEY 0855 mulvec ACT 203 79-173 Celite s Results are converted to a reference Celite ACT value in seconds. A reference interval is unavailable for ACT. Complete Blood Count Auto Di ff Reviewed date:01/10/2024 09:47:57 AM Interpretation: Performing Lab:[facility], [address] [place] [phone] Notes/Report: White Blood Count 16.7 4.8-10.8 X10*3/uL [...] Reviewed date:01/10/2024 09:47:57 AM Interpretation: Performing Lab:[address] [address] Notes/Report: Hold Lav - Possible Hematology SEE NOTE Specimen will be held untested for 8 hours. Call Hematology if testing is desired. Prothrombin Time INR Reviewed date:01/10/2024 09:47:57 AM Interpretation: Performing Lab:[facility], [address] [place] [address] Notes/Report: Prothrombin Time 11.5 10.9-12.4 SEC INTERNATIONAL [...] Reviewed date:01/10/2024 09:47:57 AM Interpretation: Performing Lab:[address] [address] Notes/Report: PTT Heparin Drip 28.1 53-77.9 SEC For information regarding the monitoring of heparin therapy, please refer to Pharmacy. Basic Metabolic Panel Reviewed date:01/10/2024 09:47:57 AM Interpretation: Performing Lab:[address] [address] Notes/Report: Sodium 136 135-145 mmol/L Potassium 4.5 [...] Reviewed date:01/10/2024 09:47:57 AM Interpretation: Performing Lab:[address] [address] Notes/Report: Phosphorus 4.0 2.7-4.5 mg/dL Magnesium Reviewed date:01/10/2024 09:47:57 AM Interpretation: Performing Lab:[address] [address] Notes/Report: Magnesium 1.9 1.6-2.6 mg/dL Albumin Level Reviewed date:01/10/2024 09:47:57 AM Interpretation: Performing Lab:[address] [address] Notes/Report: Albumin Level 3.2 3.5-5.0 g/dL SLIDE REVIEW Reviewed date:01/10/2024 09:47:57 AM Interpretation: Performing Lab:[address] [address] Notes/Report: SLIDE REVIEW VERIFIED Complete Blood Count Auto Di ff Reviewed date:01/10/2024 09:47:57 AM Interpretation: Performing Lab:[address] [address] Notes/Report: White Blood Count 10.8 4.8-10.8 X10*3/uL [...] Drip Reviewed date:01/10/2024 09:47:57 AM Interpretation: Performing Lab:[facility], [address] [place] [phone] Notes/Report: PTT Heparin Drip 34.2 53-77.9 SEC For information regarding the monitoring of heparin therapy, please refer to Pharmacy. Complete Blood Count Auto Di ff Reviewed date:01/10/2024 09:47:57 AM Interpretation: Performing Lab:[facility], [address] [place] [address] Notes/Report: White Blood Count 8.4 4.8-10.8 X10*3/uL [...] Panel Reviewed date:01/10/2024 09:47:57 AM Interpretation: Performing Lab:[facility], [address] [place] [phone] Notes/Report: Sodium 135 135-145 mmol/L Potassium 4.5 [...] Phosphorus Reviewed date:01/10/2024 09:47:57 AM Interpretation: Performing Lab:[facility], [address] [place] [phone] Notes/Report: Phosphorus 3.0 2.7-4.5 mg/dL Magnesium Reviewed date:01/10/2024 09:47:57 AM Interpretation: Performing Lab:[facility], [address] [place] [address] Notes/Report: Magnesium 2.2 1.6-2.6 mg/dL PTT Heparin Drip Reviewed date:01/10/2024 09:47:57 AM Interpretation: Performing Lab:[facility], [address] [place] [phone] Notes/Report: PTT Heparin Drip 55.2 53-77.9 SEC For information regarding the monitoring of heparin therapy, please refer to Pharmacy. Complete Blood Count Auto Di ff Reviewed date:01/10/2024 09:47:57 AM Interpretation: Performing Lab:[facility], [address] [place] [phone] Notes/Report: White Blood Count 9.2 4.8-10.8 X10*3/uL [...] Hematocrit Reviewed date:01/11/2024 01:49:27 PM Interpretation: Performing Lab:[address] [address] Notes/Report: Hemoglobin 3.3 14.0-18.0 g/dl Results of HGB called to and read back by JONAS on 01/10/24 at 1959 by BORIS. Hematocrit 9.9 42.0-52.0 % Results of HCT called to and read back by JONAS on 01/10/24 at 2001 by BORIS. Pathologist Review - CBC Reviewed date:01/11/2024 01:49:26 PM Interpretation: Performing Lab:[facility], [address] [place] [phone] Notes/Report: Pathologist Review - CBC SEE NOTE Normochromic normocytic anemia. - Javi Farias M.D. Pathology Prothrombin Time INR Reviewed date:01/10/2024 09:47:57 AM Interpretation: Performing Lab:[address] [address] Notes/Report: Prothrombin Time 12.1 10.9-12.4 SEC INTERNATIONAL [...] Drip Reviewed date:01/10/2024 09:47:57 AM Interpretation: Performing Lab:[facility], [address] [place] [address] Notes/Report: PTT Heparin Drip 44.5 53-77.9 SEC For information regarding the monitoring of heparin therapy, please refer to Pharmacy. Comprehensive Met. Panel Reviewed date:01/11/2024 01:49:27 PM Interpretation: Performing Lab:[facility], [address] [place] [phone] Notes/Report: Sodium 135 135-145 mmol/L Potassium 4.9 [...] Panel Reviewed date:01/10/2024 09:47:57 AM Interpretation: Performing Lab:[facility], [address] [place] [address] Notes/Report: Sodium 136 135-145 mmol/L Potassium 4.1 [...] Acid Reviewed date:01/11/2024 01:49:27 PM Interpretation: Performing Lab:[facility], [address] [place] [phone] Notes/Report: Lactic Acid 7.8 0.5-2.0 mmol/L Critical value for test(s): LACTA Results called to and read back by:VIKRAM Person calling: TANG Date:01-10-2024 Time:2121 Phosphorus Reviewed date:01/10/2024 09:47:57 AM Interpretation: Performing Lab:[facility], [address] [place] [phone] Notes/Report: Phosphorus 2.8 2.7-4.5 mg/dL Magnesium Reviewed date:01/10/2024 09:47:57 AM Interpretation: Performing Lab:[facility], [address] [place] [phone] Notes/Report: Magnesium 2.0 1.6-2.6 mg/dL Albumin Level Reviewed date:01/10/2024 09:47:57 AM Interpretation: Performing Lab:[facility], [address] [place] [phone] Notes/Report: Albumin Level 3.5 3.5-5.0 g/dL Lactic Acid-LAB USE ONLY Reviewed date:01/11/2024 01:49:27 PM Interpretation: Performing Lab:[facility], [address] [place] [address] Notes/Report: Lactic Acid-LAB USE ONLY 1.9 0.5-2.0 mmol/L Venous Blood Gases - POC Reviewed date:01/11/2024 01:49:27 PM Interpretation: Performing Lab:[facility], [address] [place] [address] Notes/Report: VBG pH 7.42 7.32-7.43 METER #: [id number] VBG pCO2 25 METER #: [id number] VBG pO2 76 METER #: [id number] 0250C VBG Base Excess -6.7 METER #: [id number] VBG HCO3 16 22-26 mmol/L METER #: [id number] VBG O2 % Saturation TNP Hold Green Gel Reviewed date:01/11/2024 01:49:27 PM Interpretation: Performing Lab:[facility], [address] [place] [phone] Notes/Report: Hold Green Gel See Note Specimen held untested for 24 hours; Call to request Chemistry testing. CT abdomen pelvis w con Reviewed date:01/11/2024 01:49:27 PM Interpretation: Performing Lab: Notes/Report: [address] [address] [address] Scan Report Signed Patient: Zan Encinas MR#: [id number] : 1960 Acct:[id number] Age/Sex: 63 / M ADM Date: 01/07/24 Loc: .[facility] 255-[address]: Bimal Knott MD Ordering Physician: Som Vela NP Date of Service: 01/10/24 Procedure(s): CT abdomen pelvis w IV con Accession Number(s): [id number] cc: Quinton Callahan MD; Som Vela NP [...] by: Jarret Ferrara MD 01/10/2024 10:00 PM [facility] Dictated By: Jarret Ferrara MD Signed By: <Electronically signed by Jarret Ferrara MD in OV> 01/10/242199 DD/ 21 TD/TT: 01/10/242021 Liaison Engineer: [place] [address] CT Scan Report Signed Patient: Zan Encinas MR#: [id number] : 1960 Acct:[id number] Age/Sex: 63 / M ADM Date: 01/07/24 Loc: .[facility] 255-[address]: Bimal Knott MD Ordering Physician: Som Vela NP Date of Service: 01/10/24 Procedure(s): CT abd omen pelvis w IV con Accession Number(s): [id number] cc: Quinton Callahan MD; Som Veal NP EXAMINATION: CT ABDOMEN AND PELVI S [...] by: Jarret Ferrara MD 01/10/2024 10:00 PM [facility] Dictated By: Jarret Ferrara MD Signed By: <Electronically signed by Jarret Ferrara MD in OV> 01/10/242199 DD/ 21 TD/TT: 01/10/242021 Liaison Engineer: PTT Heparin Drip Reviewed date:01/11/2024 01:49:27 PM Interpretation: Performing Lab:[facility], [address] [place] [phone] Notes/Report: PTT Heparin Drip 80.2 53-77.9 SEC For information regarding the monitoring of heparin therapy, please refer to Pharmacy. PTT Heparin Drip Reviewed date:01/11/2024 01:49:27 PM Interpretation: Performing Lab:[facility], [address] [place] [phone] Notes/Report: PTT Heparin Drip 66.0 53-77.9 SEC For information regarding the monitoring of heparin therapy, please refer to Pharmacy. Complete Blood Count Auto Di ff Reviewed date:01/11/2024 01:49:26 PM Interpretation: Performing Lab:[facility], [address] [place] [phone] Notes/Report: White Blood Count 17.6 4.8-10.8 X10*3/uL [...] Diff Reviewed date:01/12/2024 07:43:31 AM Interpretation: Performing Lab:[facility], [address] [place] [phone] Notes/Report: White Blood Count 12.3 4.8-10.8 X10*3/uL [...] ff Reviewed date:01/11/2024 01:49:26 PM Interpretation: Performing Lab:[facility], [address] [place] [phone] Notes/Report: White Blood Count 18.2 4.8-10.8 X10*3/uL [...] by SARTHAK on 01/11/24 at 0123 by JEWESL. on 01/11/24 at 0123 by JEWELS. Mean [...] Panel Reviewed date:01/11/2024 01:49:26 PM Interpretation: Performing Lab:[facility], [address] [place] [phone] Notes/Report: Sodium 135 135-145 mmol/L Potassium 4.6 [...] Phosphorus Reviewed date:01/11/2024 01:49:26 PM Interpretation: Performing Lab:[facility], [address] [place] [phone] Notes/Report: Phosphorus 4.3 2.7-4.5 mg/dL Magnesium Reviewed date:01/11/2024 01:49:26 PM Interpretation: Performing Lab:[facility], [address] [place] [phone] Notes/Report: Magnesium 2.2 1.6-2.6 mg/dL Albumin Level Reviewed date:01/11/2024 01:49:26 PM Interpretation: Performing Lab:[facility], [address] [place] [phone] Notes/Report: Albumin Level 3.6 3.5-5.0 g/dL SLIDE REVIEW Reviewed date:01/11/2024 01:49:26 PM Interpretation: Performing Lab:[facility], [address] [place] [phone] Notes/Report: SLIDE REVIEW VERIFIED Venous Blood Gases - POC Reviewed date:01/11/2024 01:49:26 PM Interpretation: Performing Lab:[facility], [address] [place] [phone] Notes/Report: VBG pH 7.49 7.32-7.43 METER #: [id number] additional_comment: Jeovany saucedo VBG pCO2 35 METER #: [id number] additional_comment: Jeovany saucedo VBG pO2 57 METER #: [id number] additional_comment: Cb crochia ctrbb henriquezc VBG Base Excess 4.0 METER #: [id number] additional_comment: Jeovany aguilarbb henriquezc VBG HCO3 27 22-26 mmol/L METER #: [id number] additional_comment: Jeovany aguilarbb henriquezc VBG O2 % Saturation 92.0 METER #: [id number] additional_comment: Jeovany stevenson henriquemarek Venous Blood Gases - POC Reviewed date:01/11/2024 01:49:26 PM Interpretation: Performing Lab:[address] [phone] Notes/Report: VBG pH 7.42 7.32-7.43 METER #: [id number] additional_comment: Jeovany aguilarbb henriquezc VBG pCO2 42 METER #: [id number] additional_comment: Jeovany aguilarbb henriquezc VBG pO2 35 METER #: [id number] additional_comment: Jeovany stevenson henriquezc VBG Base Excess 3.7 METER #: [id number] additional_comment: Jeovany stevenson henriquezc VBG HCO3 28 22-26 mmol/L METER #: [id number] additional_comment: Jeovany aguilarbb henriquezc VBG O2 % Saturation 62.0 METER #: [id number] additional_comment: Jeovany aguilarbb henriquezc Complete Blood Count Auto Di ff Reviewed date:01/11/2024 01:49:26 PM Interpretation: Performing Lab:[address] [address] Notes/Report: White Blood Count 14.9 4.8-10.8 X10*3/uL [...] ff Reviewed date:01/11/2024 08:19:34 PM Interpretation: Performing Lab:[facility], [address] [place] [phone] Notes/Report: White Blood Count 14.3 4.8-10.8 X10*3/uL [...] REVIEW Reviewed date:01/11/2024 08:19:34 PM Interpretation: Performing Lab:[facility], [address] [place] [phone] Notes/Report: SLIDE REVIEW VERIFIED Basic Metabolic Panel Reviewed date:01/12/2024 07:43:31 AM Interpretation: Performing Lab:[facility], [address] [place] [phone] Notes/Report: Sodium 133 135-145 mmol/L Potassium 4.0 [...] Phosphorus Reviewed date:01/12/2024 07:43:31 AM Interpretation: Performing Lab:[facility], [address] [place] [phone] Notes/Report: Phosphorus 2.7 2.7-4.5 mg/dL Magnesium Reviewed date:01/12/2024 07:43:31 AM Interpretation: Performing Lab:[facility], [address] [place] [phone] Notes/Report: Magnesium 2.4 1.6-2.6 mg/dL Complete Blood Count no Diff Reviewed date:01/13/2024 07:58:52 PM Interpretation: Performing Lab:[facility], [address] [place] [phone] Notes/Report: White Blood Count 11.9 4.8-10.8 X10*3/uL [...] ff Reviewed date:01/12/2024 07:43:31 AM Interpretation: Performing Lab:[address] [phone] Notes/Report: White Blood Count 11.0 4.8-10.8 X10*3/uL [...] Panel Reviewed date:01/12/2024 07:43:31 AM Interpretation: Performing Lab:[facility], [address] [place] [phone] Notes/Report: Sodium 139 135-145 mmol/L Potassium 3.9 [...] Phosphorus Reviewed date:01/12/2024 07:43:31 AM Interpretation: Performing Lab:[facility], [address] [place] [phone] Notes/Report: Phosphorus 2.8 2.7-4.5 mg/dL Magnesium Reviewed date:01/12/2024 07:43:31 AM Interpretation: Performing Lab:[facility], [address] [place] [phone] Notes/Report: Magnesium 2.3 1.6-2.6 mg/dL SLIDE REVIEW Reviewed date:01/12/2024 07:43:31 AM Interpretation: Performing Lab:[facility], [address] [place] [phone] Notes/Report: SLIDE REVIEW VERIFIED Venous Blood Gases - POC Reviewed date:01/12/2024 07:43:31 AM Interpretation: Performing Lab:[facility], [address] [place] [phone] Notes/Report: VBG pH 7.41 7.32-7.43 METER #: [id number] additional_comment: Jeovany burgess ctrbb henric VBG pCO2 47 METER #: [id number] additional_comment: Jeovany burgess ctrbb henric VBG pO2 34 METER #: [id number] additional_comment: Jeovany burgess ctrbb henric VBG Base Excess 5.9 METER #: [id number] additional_comment: Jeovany burgess ctrbb henric VBG HCO3 31 22-26 mmol/L METER #: [id number] additional_comment: Jeovany burgess ctrbb henric VBG O2 % Saturation 56.0 METER #: [id number] additional_comment: Jeovany burgess ctrbb henric Complete Blood Count Auto Di ff Reviewed date:01/12/2024 07:43:31 AM Interpretation: Performing Lab:[facility], [address] [place] [address], [place] [address] Notes/Report: White Blood Count 10.7 4.8-10.8 X10*3/uL [...] ff Reviewed date:01/13/2024 07:58:52 PM Interpretation: Performing Lab:[facility], [address] [place] [phone] Notes/Report: White Blood Count 11.2 4.8-10.8 X10*3/uL [...] Diff Reviewed date:01/13/2024 07:58:52 PM Interpretation: Performing Lab:[facility], [address] [place] [phone] Notes/Report: White Blood Count 12.6 4.8-10.8 X10*3/uL [...] ff Reviewed date:01/13/2024 07:58:52 PM Interpretation: Performing Lab:[facility], [address] [place] [phone] Notes/Report: White Blood Count 11.1 4.8-10.8 X10*3/uL [...] Panel Reviewed date:01/13/2024 07:58:52 PM Interpretation: Performing Lab:[facility], [address] [place] [phone] Notes/Report: Sodium 137 135-145 mmol/L Potassium 3.8 [...] Phosphorus Reviewed date:01/13/2024 07:58:52 PM Interpretation: Performing Lab:[facility], [address] [place] [address] Notes/Report: Phosphorus 3.0 2.7-4.5 mg/dL Magnesium Reviewed date:01/13/2024 07:58:52 PM Interpretation: Performing Lab:[facility], [address] [place] [phone] Notes/Report: Magnesium 2.3 1.6-2.6 mg/dL Albumin Level Reviewed date:01/13/2024 07:58:52 PM Interpretation: Performing Lab:[facility], [address] [place] [phone] Notes/Report: Albumin Level 3.5 3.5-5.0 g/dL SLIDE REVIEW Reviewed date:01/13/2024 07:58:52 PM Interpretation: Performing Lab:[facility], [address] [place] [phone] Notes/Report: SLIDE REVIEW VERIFIED Venous Blood Gases - POC Reviewed date:01/13/2024 07:58:52 PM Interpretation: Performing Lab:[facility], [address] [place] [phone] Notes/Report: VBG pH 7.46 7.32-7.43 METER #: [id number] additional_comment: Jeovany aguilarbb henric VBG pCO2 37 METER #: [id number] additional_comment: Jeovany martinez ctrbb henric VBG pO2 55 METER #: [id number] additional_comment: Jeovany martinez ctrbb henric VBG Base Excess 3.2 METER #: [id number] additional_comment: Jeovany martinez ctrbb henric VBG HCO3 27 22-26 mmol/L METER #: [id number] additional_comment: Jeovany martinez ctrbb henric VBG O2 % Saturation 87.0 METER #: [id number] additional_comment: Jeovany martinez ctrbb henric Complete Blood Count Auto Di ff Reviewed date:01/13/2024 07:58:52 PM Interpretation: Performing Lab:[facility], [address] [place] [phone] Notes/Report: White Blood Count 12.6 4.8-10.8 X10*3/uL [...] ff Reviewed date:01/15/2024 06:02:02 AM Interpretation: Performing Lab:[facility], [address] [place] [phone] Notes/Report: White Blood Count 13.1 4.8-10.8 X10*3/uL [...] ff Reviewed date:01/15/2024 06:02:02 AM Interpretation: Performing Lab:[facility], [address] [place] [phone] Notes/Report: White Blood Count 12.1 4.8-10.8 X10*3/uL [...] Hematocrit Reviewed date:01/15/2024 06:02:02 AM Interpretation: Performing Lab:[facility], [address] [place] [phone] Notes/Report: Hemoglobin 7.9 14.0-18.0 g/dl Hematocrit 23.5 42.0-52.0 % Basic Metabolic Panel Reviewed date:01/15/2024 06:02:02 AM Interpretation: Performing Lab:[facility], [address] [place] [phone] Notes/Report: Sodium 136 135-145 mmol/L Potassium 3.8 [...] Phosphorus Reviewed date:01/15/2024 06:02:02 AM Interpretation: Performing Lab:[facility], [address] [place] [phone] Notes/Report: Phosphorus 2.8 2.7-4.5 mg/dL Magnesium Reviewed date:01/15/2024 06:02:02 AM Interpretation: Performing Lab:[facility], [address] [place] [phone] Notes/Report: Magnesium 2.2 1.6-2.6 mg/dL Albumin Level Reviewed date:01/15/2024 06:02:02 AM Interpretation: Performing Lab:[facility], [address] [place] [phone] Notes/Report: Albumin Level 3.4 3.5-5.0 g/dL SLIDE REVIEW Reviewed date:01/15/2024 06:02:02 AM Interpretation: Performing Lab:[facility], [address] [place] [phone] Notes/Report: SLIDE REVIEW VERIFIED Complete Blood Count no Diff Reviewed date:01/16/2024 08:51:12 AM Interpretation: Performing Lab:[facility], [address] [place] [phone] Notes/Report: White Blood Count 12.7 4.8-10.8 X10*3/uL [...] Diff Reviewed date:01/16/2024 08:51:12 AM Interpretation: Performing Lab:[facility], [address] [place] [phone] Notes/Report: White Blood Count 9.9 4.8-10.8 X10*3/uL [...] Panel Reviewed date:01/17/2024 05:05:01 AM Interpretation: Performing Lab:[facility], [address] [place] [phone] Notes/Report: Sodium 135 135-145 mmol/L Potassium 4.2 [...] Magnesium Reviewed date:01/17/2024 05:05:01 AM Interpretation: Performing Lab:[facility], [address] [place] [phone] Notes/Report: Magnesium 2.3 1.6-2.6 mg/dL Complete Blood Count Auto Di ff Reviewed date:01/18/2024 08:33:04 PM Interpretation: Performing Lab:[facility], [address] [place] [phone] Notes/Report: White Blood Count 12.0 4.8-10.8 X10*3/uL [...] Reviewed date:01/18/2024 08:33:04 PM Interpretation: Performing Lab:[address] [phone] Notes/Report: Erythrocyte Sedimentation Rate 92 0-15 MM/HR Patients with polycythemia and many hemoglobin abnormalities may have depressed sed rates whereas patients with anemia may have elevated sed rates. Prothrombin Time INR Reviewed date:01/18/2024 08:33:04 PM Interpretation: Performing Lab:[address] [address] Notes/Report: Prothrombin Time 13.4 10.9-12.4 SEC INTERNATIONAL [...] Panel Reviewed date:01/18/2024 08:33:04 PM Interpretation: Performing Lab:[facility], [address] [place] [phone] Notes/Report: Sodium 134 135-145 mmol/L Potassium 4.2 [...] Acid Reviewed date:01/18/2024 08:33:04 PM Interpretation: Performing Lab:[facility], [address] [place] [phone] Notes/Report: Lactic Acid 1.3 0.5-2.0 mmol/L C Reactive Protein Reviewed date:01/18/2024 08:33:04 PM Interpretation: Performing Lab:[facility], [address] [place] [phone] Notes/Report: C Reactive Protein 14.10 < or = 0.50 mg/dL Lipase Reviewed date:01/18/2024 08:33:04 PM Interpretation: Performing Lab:[facility], [address] [place] [phone] Notes/Report: Lipase 24 8-78 U/L SLIDE REVIEW Reviewed date:01/18/2024 08:33:04 PM Interpretation: Performing Lab:[facility], [address] [place] [phone] Notes/Report: SLIDE REVIEW VERIFIED Blood Culture (First) Reviewed date:01/24/2024 07:41:27 AM Interpretation: Performing Lab:[facility], [address] [place] [phone] Notes/Report: Blood Culture (First) No growth after 5 days. Blood Culture (Second) Reviewed date:01/24/2024 07:41:27 AM Interpretation: Performing Lab:[facility], [address] [place] [phone] Notes/Report: Blood Culture (Second) No growth after 5 days. US arterial duplex LE RT Reviewed date:01/21/2024 07:35:28 AM Interpretation: Performing Lab: Notes/Report: [address] [address] Ultrasound Report Signed with Addenda Patient: Zan Encinas MR#: [id number] : 1960 Acct:[id number] Age/Sex: 63 / M ADM Date: 01/18/24 Loc: .ED Attending Dr: Ordering Physician: Yuriy Dunbar Date of Service: 01/18/24 Procedure(s): US arterial duplex LE RT Accession Number(s): [id number] cc: Quinton Callahan MD; Yuriy Dunbar ADDENDUM ADDENDUM #1 Findings were communicated by telephone with Dr. Gerard by Dr. Zarate at 2034 hours. Electronically signed by: Placido Zarate MD 01/18/2024 08:41 PM [facility] Addendum Dictated By: Yuriy Zarate MD Addendum [...] by: Placido Zarate MD 01/18/2024 08:33 PM [facility] Dictated By: Yuriy Zarate MD Signed By: <Electronically signed by Yuriy Zarate MD in OV> 01/18/242032 DD/ 02 TD/TT: 01/18/241505 Liaison Engineer: BLANCA [place] [address] Ultrasound Report Signed with Addenda Patient: Zan Encinas MR#: [id number] : 1960 Acct:[id number] Age/Sex: 63 / M ADM Date: 01/18/24 Loc: .ED Attending Dr: Ordering Physician: Yuriy Dunbar Date of Service: 01/18/24 Procedure(s): US arterial duplex LE RT Accession Number(s): [id number] cc: Quinton Callahan MD; Yuriy Dunbar ADDENDUM [...] in OV> 01/18/242032 DD/ 02 TD/TT: 01/18/241505 Liaison Engineer: BLANCA XR foot RT min 3V Reviewed date:01/18/2024 08:33:04 PM Interpretation: Performing Lab: Notes/Report: [address] [address] XRay Report Signed Patient: Zan Encinas MR#: [id number] : 1960 Acct:[id number] Age/Sex: 63 / M ADM Date: 01/18/24 Loc: .ED Attending Dr: Ordering Physician: Yuriy Dunbar Date of Service: 01/18/24 Procedure(s): XR foot RT min 3V Accession Number(s): [id number] cc: Quinton Callahan MD; Yuriy Dunbar EXAMINATION: [...] by: Kaushal Cohen MD 01/18/2024 04:19 PM [facility] Dictated By: Kaushal Cohen MD Signed By: <Electronically signed by Kaushal Cohen MD in OV> 01/18/24 1619 DD/ 1516 TD/TT: 01/18/24 1534 Liaison Engineer: MICHELA [place] [address] XRay Report Signed Patient: Zan Encinas MR#: [id number] : 1960 Acct:[id number] Age/Sex: 63 / M ADM Date: 01/18/24 Loc: .ED Attending Dr: Ordering Physician: Yuriy Dunbar Date of Service: 01/18/24 Procedure(s): XR chito t RT min 3V Accession Number(s): [id number] cc: Quinton Callahan MD; Yuriy Dunbar EXAMINATION: [...] by: Kaushal Cohen MD 01/18/2024 04:19 PM [facility] Dictated By: Kaushal Cohen MD Signed By: <Electronically signed by Kaushal Cohen MD in OV> 01/18/24 1619 DD/ 1516 TD/TT: 01/18/24 1534 Liaison Engineer: MICHELA Complete Blood Count no Diff Reviewed date:02/04/2024 11:35:53 AM Interpretation: Performing Lab:[facility], [address] [place] [phone] Notes/Report: White Blood Count 11.5 4.8-10.8 X10*3/uL [...] INR Reviewed date:02/04/2024 11:35:53 AM Interpretation: Performing Lab:[facility], [address] [place] [phone] Notes/Report: Prothrombin Time 13.0 10.9-12.4 SEC INTERNATIONAL [...] Time Reviewed date:02/04/2024 11:35:53 AM Interpretation: Performing Lab:[facility], [address] [place] [phone] Notes/Report: Partial Thromboplastin Time 33.9 26.0-36.8 SEC For information regarding the monitoring of direct thrombin inhibitors, please refer to Pharmacy. Basic Metabolic Panel Reviewed date:02/04/2024 11:35:53 AM Interpretation: Performing Lab:[facility], [address] [place] [phone] Notes/Report: Sodium 138 135-145 mmol/L Potassium 4.4 [...] Pathology Reviewed date:02/08/2024 08:35:16 AM Interpretation: Performing Lab:[facility], [address] [place] [phone] Notes/Report: ---- Name: Toney Encinas Age/Sex: 63/M : 1960 [place] Llct#: [id number] Unit#: [id number] Attend Dr: Bimal Knott MD Re02/04/24 Status : ADM IN Location: [facility] 364-1 Disch: ---- SPEC : [id number] RECD : 02/04/24-1214 STATUS: YUSUF MATHUR NUM: [id number] FRANTZ: 02/04/24-[address]: Bimal Knott MD [...] label ed ?right leg? is a right spsqs-wfo-zfyv amputation specimen which measures 34.0 cm in [...] No other erosions or ulcers are identified. Hot Kettle Tender sections are submitted labeled as follows: A1 [...] Name: EncinasToney Age/Sex: 63/M : 1960 Unit#: [id number] Attend Dr: Bimal Knott MD Re02/04/24 Status : ADM IN Location: [facility] 364-1 Disch: ---- SPEC : [id number] RECD : 02/04/24 STATUS: YUSUF KEVAN NUM: [id number] FRANTZ: 02/04/24-[address] [facility] [address]: Bimal Knott MD ENTERED: 02/04/24- 16 SP TYPE: Surgical OTHR DR: Quinton Callahan MD ORDERED: Gross Micro L5 Copies To: Quinton Callahan MD [address] [place] [address], [place] [phone] Bimal Knott MD [facility] [address] [place] [address] ---- Signed (signature on file) Val Lee 02/06/24 1550 ---- END OF REPORT Type and Screen Reviewed date:02/04/2024 11:35:53 AM Interpretation: Performing Lab:[facility], [address] [place] [phone] Notes/Report: Blood Type OP Antibody Screen NEGATIVE Complete Blood Count no Diff Reviewed date:02/08/2024 08:35:16 AM Interpretation: Performing Lab:[facility], [address] [place] [phone] Notes/Report: White Blood Count 9.4 4.8-10.8 X10*3/uL [...] ff Reviewed date:02/08/2024 08:35:16 AM Interpretation: Performing Lab:[facility], [address] [place] [phone] Notes/Report: White Blood Count 11.2 4.8-10.8 X10*3/uL [...] Panel Reviewed date:02/08/2024 08:35:16 AM Interpretation: Performing Lab:[facility], [address] [place] [phone] Notes/Report: Sodium 137 135-145 mmol/L Potassium 3.9 [...] Reviewed date:02/08/2024 08:35:16 AM Interpretation: Performing Lab:[address] [address] Notes/Report: SLIDE REVIEW VERIFIED Complete Blood Count no Diff Reviewed date:02/08/2024 08:35:16 AM Interpretation: Performing Lab:[address] [phone] Notes/Report: White Blood Count 9.3 4.8-10.8 X10*3/uL [...] Reviewed date:02/08/2024 08:35:16 AM Interpretation: Performing Lab:[address] [address] Notes/Report: Sodium 136 135-145 mmol/L Potassium 3.8 [...] Level Reviewed date:02/08/2024 08:35:16 AM Interpretation: Performing Lab:[facility], [address] [place] [phone] Notes/Report: Albumin Level 2.7 3.5-5.0 g/dL Complete Blood Count no Diff Reviewed date:02/08/2024 08:35:16 AM Interpretation: Performing Lab:[facility], [address] [place] [phone] Notes/Report: White Blood Count 9.0 4.8-10.8 X10*3/uL [...] Gel Reviewed date:02/08/2024 08:35:16 AM Interpretation: Performing Lab:[facility], [address] [place] [phone] Notes/Report: Hold Green Gel See Note Specimen held untested for 24 hours; Call to request Chemistry testing. Complete Blood Count Auto Di ff Reviewed date:05/27/2024 08:42:02 AM Interpretation: Performing Lab:[facility], [address] [place] [phone] Notes/Report: White Blood Count 10.9 4.8-10.8 X10*3/uL [...] Reviewed date:05/27/2024 08:42:02 AM Interpretation: Performing Lab:[address] [address] Notes/Report: Erythrocyte Sedimentation Rate 10 0-15 MM/HR Patients with polycythemia and many hemoglobin abnormalities may have depressed sed rates whereas patients with anemia may have elevated sed rates. Comprehensive Met. Panel Reviewed date:05/27/2024 08:42:02 AM Interpretation: Performing Lab:[address] [address] Notes/Report: Sodium 138 135-145 mmol/L Potassium 4.3 [...] Reviewed date:05/27/2024 08:42:02 AM Interpretation: Performing Lab:[address] [address] Notes/Report: Lactic Acid 1.4 0.5-2.0 mmol/L C Reactive Protein Reviewed date:05/27/2024 08:42:02 AM Interpretation: Performing Lab:[facility], [address] [place] [phone] Notes/Report: C Reactive Protein 1.01 < or = 0.50 mg/dL Blood Culture (First) Reviewed date:06/07/2024 04:51:50 AM Interpretation: Performing Lab:[facility], [address] [place] [phone] Notes/Report: Blood Culture (First) No growth after 5 days. Blood Culture (Second) Reviewed date:06/07/2024 04:51:50 AM Interpretation: Performing Lab:[facility], [address] [place] [phone] Notes/Report: Blood Culture (Second) No growth after 5 days. XR knee RT 4V Reviewed date:05/27/2024 08:42:02 AM Interpretation: Performing Lab: Notes/Report: [address] [place] [address] XRay Report Signed Patient: Zan Encinas MR#: [id number] : 1960 Acct:[id number] Age/Sex: 64 / M ADM Date: 05/26/24 Loc: .ED Attending Dr: Ordering Physician: Gt Cruz Date of Service: 05/26/24 Procedure(s): XR knee RT 4V Accession Number(s): [id number] cc: Gt Cruz; Quinton Callahan MD EXAMINATION: XR KNEE, RIGHT CLINICAL INFORMATION: Right stump erythema/pus discharge COMPARISON: 10/01/2023. TECHNIQUE: Four views of the right knee. FINDINGS: There is mild generalized osteopenia. There has been a otqii-cco-uyaj amputation. There are no permeative changes involving [...] 05/26/24 1532 DD/ 1452 TD/TT: 05/26/24 1510 Liaison Engineer: [address] [address] XRay Report Signed Patient: Zan Encinas MR#: [id number] : 1960 Acct:[id number] Age/Sex: 64 / M ADM Date: 05/26/24 Loc: .ED Attending Dr: Ordering Physician: Gt Cruz Date of Service: 05/26/24 Procedure(s): XR kne e RT 4V Accession Number(s): [id number] cc: Gt Cruz; Quinton Callahan MD EXAMINATION: XR KNEE, RIGHT CLINICAL INFORMATION: Right stump erythema /pus discharge COMPARISON: 10/01/2023. TECHNIQUE: Four views of the ri ght knee. FINDINGS: There is mild generalized osteopenia. There has been a tgzkm-ewy-tcqz amputation. There are no permeative changes involving [...] Cortes MD Signed By: <Electronically signed by Alvraado Cortes MD in OV> 05/26/24 1532 DD/ 1452 TD/TT: 05/26/24 1510 Liaison Engineer: Complete Blood Count Auto Di ff Reviewed date:05/27/2024 08:42:02 AM Interpretation: Performing Lab:[address] [address] Notes/Report: White Blood Count 9.2 4.8-10.8 X10*3/uL [...] Panel Reviewed date:05/27/2024 08:42:02 AM Interpretation: Performing Lab:[facility], [address] [place] [phone] Notes/Report: Sodium 140 135-145 mmol/L Potassium 3.8 [...] Creatinine Reviewed date:05/27/2024 08:42:02 AM Interpretation: Performing Lab:[facility], [address] [place] [phone] Notes/Report: Creatinine 0.84 0.5-1.4 mg/dL Creatinine Clr [...] Random Reviewed date:05/28/2024 04:55:44 AM Interpretation: Performing Lab:[facility], [address] [place] [phone] Notes/Report: Vancomycin Random 13.2 15-20 mcg/mL MR knee RT wo/w con Reviewed date:05/28/2024 04:55:44 AM Interpretation: Performing Lab: Notes/Report: [address] [place] [address] Magnetic Resonance Report Signed Patient: Zan Encinas MR#: [id number] : 1960 Acct:[id number] Age/Sex: 64 / M ADM Date: 05/26/24 Loc: .S3 376-[address]: Luciano Mari MD Ordering Physician: Keith Menendez MD Date of Service: 05/27/24 Procedure(s): MR knee RT wo/w con Accession Number(s): [id number] cc: Quinton Callahan MD; Keith Menendez MD [...] 05/27/24 1626 DD/ 1527 TD/TT: 05/27/24 1549 Liaison Engineer: [place] [address] Magnetic Resonance Report Signed Patient: Zan Encinas MR#: [id number] : 1960 Acct:[id number] Age/Sex: 64 / M ADM Date: 05/26/24 Loc: .S3 376-[address]: Alfredo Mari MD Ordering Physician: Keith Menendez MD Date of Service: 05/27/24 Procedure(s): MR green e RT wo/w con Accession Number(s): [id number] cc: Quinton Callahan MD; Keith Menendez MD [...] 05/27/24 1626 DD/ 1527 TD/TT: 05/27/24 1549 Liaison Engineer: Creatinine Reviewed date:05/28/2024 02:19:09 PM Interpretation: Performing Lab:[facility], [address] [place] [phone] Notes/Report: Creatinine 0.81 0.5-1.4 mg/dL Creatinine Clr [...] Reviewed date:05/30/2024 07:30:54 PM Interpretation: Performing Lab:[address] [phone] Notes/Report: Vancomycin Random 13.4 15-20 mcg/mL Hold Lav - Possible Hematolo gy Reviewed date:05/30/2024 07:30:54 PM Interpretation: Performing Lab:[address] [address] Notes/Report: Hold Lav - Possible Hematology SEE NOTE Specimen will be held untested for 8 hours. Call Hematology if testing is desired. Creatinine Reviewed date:05/30/2024 07:30:54 PM Interpretation: Performing Lab:[facility], [address] [place] [phone] Notes/Report: Creatinine 0.79 0.5-1.4 mg/dL Creatinine Clr [...] ff Reviewed date:07/01/2024 10:06:14 AM Interpretation: Performing Lab:[facility], [address] [place] [phone] Notes/Report: White Blood Count 8.9 4.8-10.8 X10*3/uL [...] Creatinine Reviewed date:07/01/2024 10:06:14 AM Interpretation: Performing Lab:[address] [address] Notes/Report: Creatinine 1.10 0.5-1.4 mg/dL Estimated Glomerular Filt Rate > 60 Chronic Kidney Disease: Estimated GFR < 60 mL/min/1.73m2 Severe Kidney Disease: Estimated GFR < 15 mL/min/1.73m2 Vancomycin Trough Reviewed date:07/01/2024 10:06:14 AM Interpretation: Performing Lab:[facility], [address] [place] [phone] Notes/Report: Vancomycin Trough 20.4 10.0-20.0 mcg/mL Complete Blood Count no Diff Reviewed date:10/13/2024 03:48:51 PM Interpretation: Performing Lab:[facility], [address] [place] [phone] Notes/Report: White Blood Count 8.2 4.8-10.8 X10*3/uL [...] Panel Reviewed date:10/13/2024 03:48:51 PM Interpretation: Performing Lab:[address] [address] Notes/Report: Sodium 142 135-145 mmol/L Potassium 4.5 [...] stain Reviewed date:10/21/2024 05:29:45 AM Interpretation: Performing Lab:[address] [address] Notes/Report: BONE RIGHT TIBIA BONE RIGHT TIBIA Gram stain Gram stain results: Gram stain No polys Gram stain 4+ red blood cells Gram stain No organisms seen Routine Culture Reviewed date:10/13/2024 03:48:51 PM Interpretation: Performing Lab:[address] [address] Notes/Report: RIGHT BKA DEEP CULTURE Routine Culture Report - external Routine Culture 1+ Mixed skin roico O:STAAUR Staphylococcus aureus Routine Culture Quant Org ID Routine Culture 1+ Clindamycin <=0.25 Erythromycin <=0.25 Levofloxacin 0.25 Oxacillin 0.5 Penicillin-G >=0.5 Tetracycline <=1 Trimethoprim/Sulfamethox azole <=10 Anaerobic Culture Reviewed date:10/21/2024 05:29:45 AM Interpretation: Performing Lab:[facility], [address] [place] [phone] Notes/Report: BONE RIGHT TIBIA BONE RIGHT TIBIA Anaerobic Culture Report Anaerobic Culture No anaerobes isolated. Gram stain Reviewed date:10/13/2024 03:48:51 PM Interpretation: Performing Lab:[facility], [address] [place] [phone] Notes/Report: RIGHT BKA DEEP CULTURE Gram stain Gram stain results: Gram stain 1+ polys Gram stain 4+ red blood cells Gram stain No organisms seen Routine Culture Reviewed date:10/21/2024 05:29:45 AM Interpretation: Performing Lab:[facility], [address] [place] [phone] Notes/Report: Clindamycin <=0.25 Erythromycin <=0.25 Levofloxacin 0.25 Oxacillin 0.5 Penicillin-G >=0.5 Tetracycline <=1 Trimethoprim/Sulfamethox azole <=10 Clindamycin >=8 Erythromycin >=8 Levofloxacin <=0.12 Oxacillin >=4 Penicillin-G >=0.5 Tetracycline >=16 Trimethoprim/Sulfamethox azole 160 Vancomycin 1 Complete Blood Count Auto Di ff Reviewed date:10/21/2024 05:29:45 AM Interpretation: Performing Lab:[facility], [address] [place] [phone] Notes/Report: White Blood Count 8.1 4.8-10.8 X10*3/uL [...] te Reviewed date:10/21/2024 05:29:45 AM Interpretation: Performing Lab:[address] [address] Notes/Report: Erythrocyte Sedimentation Rate 5 0-15 MM/HR Patients with polycythemia and many hemoglobin abnormalities may have depressed sed rates whereas patients with anemia may have elevated sed rates. Comprehensive Met. Panel Reviewed date:10/21/2024 05:29:45 AM Interpretation: Performing Lab:[address] [address] Notes/Report: Sodium 139 135-145 mmol/L Potassium 4.3 [...] Protein Reviewed date:10/21/2024 05:29:45 AM Interpretation: Performing Lab:[address] [address] Notes/Report: C Reactive Protein 0.52 < or = 0.50 mg/dL Gram stain Reviewed date:10/24/2024 02:48:30 PM Interpretation: Performing Lab:[facility], [address] [place] [phone] Notes/Report: R BKA surgical site Gram stain Gram stain results: Gram stain 3+ polys Gram stain 2+ epithelial cells Gram stain 3+ Gram-negative rods Gram stain 1+ Gram-positive cocci Routine Culture Reviewed date:10/24/2024 02:48:30 PM Interpretation: Performing Lab:[facility], [address] [place] [phone] Notes/Report: R BKA surgical site O:PSEAER Pseudomonas aeruginosa Routine Culture Quant Org ID Routine Culture 3+ O:CORSPE Corynebacterium species Routine Culture No susc Routine Culture Standard methods for susceptibility testing not established. Routine Culture Quant Org ID Routine Culture 2+ Cefepime 2 Ciprofloxacin 0.12 Gentamicin <=1 Meropenem 0.5 Piperacillin/Tazobactam <=4 Blood Culture (First) Reviewed date:11/07/2024 05:47:41 AM Interpretation: Performing Lab:[facility], [address] [place] [phone] Notes/Report: Blood Culture (First) No growth after 5 days. Blood Culture (Second) Reviewed date:11/07/2024 05:47:41 AM Interpretation: Performing Lab:[facility], [address] [place] [address] Notes/Report: Blood Culture (Second) No growth after 5 days. XR knee RT 4V Reviewed date:10/21/2024 05:29:45 AM Interpretation: Performing Lab: Notes/Report: [facility] [address] [place] [address] XRay Report Signed Patient: Zan Encinas MR#: [id number] : 1960 Acct:[id number] Age/Sex: 64 / M ADM Date: 10/20/24 Loc: HO.ED Attending Dr: Ordering Physician: Pooja Tapia Date of Service: 10/20/24 Procedure(s): XR knee RT 4V Accession Number(s): [id number] cc: Quinton Callahan MD; Pooja Tapia EXAMINATION: [...] 10/20/24 1311 DD/ 1156 TD/TT: 10/20/24 1300 Liaison Engineer: [address] [address] XRay Report Signed Patient: Zan Encinas MR#: [id number] : 1960 Acct:[id number] Age/Sex: 64 / M ADM Date: 10/20/24 Loc: HO.ED Attending Dr: Ordering Physician: Pooja Tapia Date of Service: 10/20/24 Procedure(s): XR kne e RT 4V Accession Number(s): [id number] cc: Quinton Callahan MD; Pooja Tapia EXAMINATION: [...] 10/20/24 1311 DD/ 1156 TD/TT: 10/20/24 1300 Liaison Engineer: Complete Blood Count no Diff Reviewed date:10/24/2024 02:48:30 PM Interpretation: Performing Lab:[facility], [address] [place] [phone] Notes/Report: White Blood Count 6.8 4.8-10.8 X10*3/uL [...] Panel Reviewed date:10/24/2024 02:48:30 PM Interpretation: Performing Lab:[address] [address] Notes/Report: Sodium 142 135-145 mmol/L Potassium 4.3 [...] T4 Reviewed date:10/24/2024 02:48:30 PM Interpretation: Performing Lab:[address] [address] Notes/Report: TSH reflex Free T4 1.34 0.32-4.0 uIU/mL Vancomycin Random Reviewed date:10/24/2024 02:48:30 PM Interpretation: Performing Lab:[facility], [address] [place] [phone] Notes/Report: Vancomycin Random 12.7 15-20 mcg/mL Hold Lav - Possible Hematolo gy Reviewed date:10/24/2024 02:48:30 PM Interpretation: Performing Lab:[facility], [address] [place] [phone] Notes/Report: Hold Lav - Possible Hematology SEE NOTE Specimen will be held untested for 8 hours. Call Hematology if testing is desired. Creatinine Reviewed date:10/24/2024 02:48:30 PM Interpretation: Performing Lab:[facility], [address] [place] [phone] Notes/Report: Creatinine 1.09 0.5-1.4 mg/dL Creatinine Clr [...] Random Reviewed date:10/24/2024 02:48:30 PM Interpretation: Performing Lab:[facility], [address] [place] [phone] Notes/Report: Vancomycin Random 12.4 15-20 mcg/mL Hold Lav - Possible Hematolo gy Reviewed date:10/24/2024 02:48:30 PM Interpretation: Performing Lab:[facility], [address] [place] [phone] Notes/Report: Hold Lav - Possible Hematology SEE NOTE Specimen will be held untested for 8 hours. Call Hematology if testing is desired. Creatinine Reviewed date:10/24/2024 02:48:30 PM Interpretation: Performing Lab:[facility], [address] [place] [phone] Notes/Report: Creatinine 1.14 0.5-1.4 mg/dL Creatinine Clr [...] Random Reviewed date:10/24/2024 02:48:30 PM Interpretation: Performing Lab:[facility], [address] [place] [phone] Notes/Report: Vancomycin Random 18.9 15-20 mcg/mL US renal BI Reviewed date:12/06/2024 06:19:52 AM Interpretation: Performing Lab: Notes/Report: [address] [address] Ultrasound Report Signed Patient: Zan Encinas MR#: [id number] : 1960 Acct:[id number] Age/Sex: 64 / M ADM Date: 12/04/24 Loc: HO.US Attending Dr: Chloe PACHECO Ordering Physician: Chloe Flores Date of Service: 12/04/24 Procedure(s): US renal BI Accession Number(s): [id number] cc: Quinton Callahan MD; Chloe Flores Reason for Exam: N28.1 - Cyst of kidney, acquired CLINICAL HISTORY: N28.1 - Cyst of kidney, acquired US Renal Comparison: None provided Findings: Right kidney normal size and echotexture, 12.4 cm length. Left kidney normal size and echotexture, 11.7 cm length. Mild left hydronephrosis. Heterogeneous region of echogenicity lateral to the left kidney measuring 57 mm x 12 mm x 10 mm which is indeterminate. No hydronephrosis of either kidney. Normal color Doppler IMPRESSION: 1. Mild left hydronephrosis. 2. Indeterminate heterogeneous region adjacent to the left kidney as described above. Further assessment with renal protocol CT is recommended. This document has been electronically signed by: Pineda Benito MD on 12/05/2024 13:46:59 Dictated By: Pineda Benito MD Signed By: <Electronically signed by Pineda Benito MD in [place]> 12/05/241346 DD/ 45 TD/TT: 12/05/241345 Liaison Engineer: [address] [address] Ultrasound Report Signed Patient: Zan Encinas MR#: [id number] : 1960 Acct:[id number] Age/Sex: 64 / M ADM Date: 12/04/24 Loc: HO.US Attending Dr: Chloe mcqueen [facility] Ordering Physician: Chloe Flores [facility] Date of Service: 12/04/24 Procedure(s): US hubert Proctor Accession Number(s): [id number] cc: Quinton Callahan MD; Chloe Flores [facility] Reason for Exam: N28 .1 - Cyst of kidney, acquired CLINICAL HISTORY: N2 8.1 - Cyst of kidney, acquired US Renal Comparison: None provided Findings: Right kidney normal size and echotexture, 12.4 cm length. Left kidney normal s ize and echotexture, 11.7 cm length. Mild left hydronephrosis. Heterogeneous region of echogenicity lateral to the left kidney measuring 57 mm x 12 mm x 10 mm which is indeterminate. No hydronephrosis of either kidney. Normal color Doppler IMPRESSION: 1. Mild left hydronephrosis. 2. Indeterminate heterogeneous region adjacent to the left kidney as described above. Fur ther assessment with renal protocol CT is recommended. This document has be en electronically signed by: Pineda Benito MD on 12/05/2024 13:46:59 Dictated By: Pineda Benito MD Signed By: <Electronically signed by Pineda Benito MD in OV> 12/05/24 134 DD/ 45 TD/TT: 12/05/241345 Liaison Engineer: Reason For Referral Reason Evaluate and Treat Irregular Heart Rate History of A-Fib Diagnosis 1 Irregular heart rate (I49.9) Diagnosis 2 Left bundle branch b lock (I44.7) Diagnosis 3 History of atrial fi brillation (Z86.79) Referral Organization Quinton Callahan III, MD Referring Provider First Name Quinton Referring Provider Last Name Callahan Referring Provider Speciality Internal edicine Referred Provider [facility] er, Cardiology Referred Provider Specialty [...] > Patient is currently Admitted into ., Blaise 11/14/2024 02:25:27 PM > Spoke with Marlena patient has not been contacted or seen sooner. Stated she will be putting in a message to Dr. Ferrer's medical insurance clerk to ask if the patient can be seen with the nurse practitioner. Stated they will contact the patient directly. Referral Priority Routine Referral Appointment Date 11/19/2024 Reason left renal hematoma evaluate and treatment Diagnosis 1 Hematoma of left kid luz, initial encounter (S37.012A) Referral Organization Quinton Callahan III, MD Referring Provider First Name Quinton Referring Provider Last Name Callahan Referring Provider [facility] edicine Referred Provider Chloe Flores Referred Provider Specialty Urology General Notes Lisa Jolie VALE 09/30 03:24:56 PM >I called Dr Flores office made patient an appt for 12/03/2024 at 2:45pm pt is established with Dr Flores so no records were sent . [facility] appt information was mailed to patient Referral Priority Routine Referral Appointment Date 12/03/2024 Reason evaluate and treatme nt Barretts esophagus barretts Esophagus Due for EGD Diagnosis 1 Palmer's esophagus determined by endoscopy (K22.70) Referral Organization Quinton Callahan III, MD Referring Provider First Name Quinton Referring Provider Last Name Callahan Referring Provider Speciality Internal edicine Referred Provider Quinton Campos Referred Provider Specialty Gastroentero logy General Notes S Jolie YARN WINDER 09/30 03:23:14 PM >Called Dr Campos office [...] Take 1 tablet by mouth once daily for 90 Active ASA 1 tab Oral Active Pantoprazole [...] Problem Status W/U Status Risk Notes Problem 680204443 Overweight (E66.3) Active confirmed His body mass index is 29. We discussed diet and nutrition. I recommended aggressive weight loss and sodium restriction. Problem 290734243 Mixed hyperlipidemia (E78.2) Active confirmed A comprehensive laboratory database with a fasting lipid profile will be obtained. He was continued on his currrent meddications. Problem 34433922 Chronic obstructive pulmonary disease, unspecified COPD type (J44.9) Active confirmed He has resumed smoking 5 cigarettes per day. He was counseled about this and made aware of the smoking cessation programs in the area. Problem 66781770 Tobacco dependence (F17.200) Active confirmed I have counseled him about smoking cessation and offered to refer him to smoking cessation programs in the community. He said he would consider this and try to cut down. Problem Left bundle branch block (17299418) Left bundle branch block (I44.7) Active confirmed The fur dyer's interpretation of the perfusion test was that the defect in the septum may be due to the bundle branch block. I will discuss this with cardiology. Problem 63854355 Hiatal hernia (K44.9) Active confirmed The symptoms of his esophageal reflux and hiatal hernia well controlled with current medications. No change in his regimen as needed. Problem 777452906 Peripheral arterial disease (I73.9) Active confirmed He is seeing the vascular surgeon rita 2 weeks. 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 The plan is to fit him for a prosthesis. He denies any ulcers or claudication in the left leg. Problem Hoarseness (26947569) Hoarseness (R49.0) Active confirmed He will be referred to ENT for indirect laryngoscopy. Problem 5725656 Umbilical hernia without obstruction and without gangrene (K42.9) Active confirmed This is asymptomatic and requires no treatment at this time. Problem 784813065 Benign prostatic hyperplasia with lower urinary tract symptoms (N40.1) Active confirmed The tamsulosin was continued today. He will notify me if his symptoms worsen. He has had no retention. He has symptoms of prostatism. Problem 419761308 Acute right-sided low back pain with right-sided sciatica (M54.41) Active confirmed His back pain continues and I have increased the gabapentin. Problem Cardiac arrhythmia (604811490) Irregular heart rate (I49.9) Active confirmed These episodes had night have increased lately. He has had no chest pain. He has had no increase in his chronic dyspnea. Holter monitor has been ordered. He is not anticoagulated. Problem 123982043 Palmer's esophagus determined by endoscopy (K22.70) Active confirmed He is due for an endoscopy and was referred back to his gastroenterolog ist, Dr. Quinton Campos. 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 Problem 82346307315104871 Carpal tunnel syndrome on both sides (G56.03) Active confirmed He has a history of carpal tunnel syndrome treated by Dr. Raphael. He is currently asymptomatic. 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 Vascular has referred him to infectious disease for an opinion. The patient I today discussed the possibility of an jjzjn-bkx-beqk amputation and what it would be like walking. Vital Signs Heart Rate 64 /min 12/02/2024 Temperature 100.1 degrees Fahrenheit 12/02/2024 Respiratory Rate 15 /min 12/02/2024 Oximetry 96 % 12/02/2024 Blood pressure diastolic 81 mm Hg 12/02/2024 Height 73 in 12/02/2024 Blood pressure systolic 135 mm Hg 12/02/2024 Weight 197 lbs 12/02/2024 BMI 25.99 kg/m2 12/02/2024 Encounters Encounter Location Date Provider Diagnosis Quinton Callahan III, MD [address] [place] [address] [place] [address] 12/28/2023 Quinton Callahan Peripheral arterial disease I73.9 ; Chronic obstructive pulmonary disease, unspecified COPD type J44.9 ; Benign prostatic hyperplasia with lower urinary tract symptoms N40.1 ; Palmer's esophagus determined by endoscopy K22.70 ; Hiatal hernia K44.9 ; Overweight E66.3 ; Tobacco dependence F17.200 and Mixed hyperlipidemia E78.2 Quinton Callahan III, MD [address] [place] [address] [place] [address] 06/12/2024 Quinton Callahan Peripheral arterial disease I73.9 ; Benign prostatic hyperplasia with lower urinary tract symptoms N40.1 ; Palmer's esophagus determined by endoscopy K22.70 ; Chronic obstructive pulmonary disease, unspecified COPD type J44.9 ; Overweight E66.3 ; Tobacco dependence F17.200 and Mixed hyperlipidemia E78.2 Quinton Callahan III, MD [address] [place] [address] [place] [address] 07/10/2024 Quinton Callahan Peripheral arterial disease I73.9 [...] Tobacco dependence F17.200 Quinton Callahan III, MD [address] [place] [address] [place] [address] 09/09/2024 Quinton Callahan Irregular heart rate I49.9 [...] draining sinus M86.461 Quinton Callahan III, MD [address] [place] [address] [place] [address] 09/30/2024 Quinton Callahan Chronic osteomyeliti s of right tibia with draining sinus M86.461 ; Overweight E66.3 ; Umbilical hernia without obstruction and without gangrene K42.9 ; Peripheral arterial disease I73.9 ; Chronic obstructive pulmonary disease, unspecified COPD type J44.9 ; Splenic vein thrombosis I82.890 ; Palmer's esophagus determined by endoscopy K22.70 and Tobacco dependence F17.200 Quinton Callahan III, MD [address] [place] [address] [place] [address] 10/29/2024 Quinton Callahan Chronic osteomyeliti s of right tibia with draining sinus M86.461 ; Tobacco dependence F17.200 ; Peripheral arterial disease I73.9 ; Palmer's esophagus determined by endoscopy K22.70 ; Chronic obstructive pulmonary disease, unspecified COPD type J44.9 ; Hiatal hernia K44.9 and Mixed hyperlipidemia E78.2 Quinton Callahan III, MD [address] [place] [address] [place] [address] 12/02/2024 Quinton Callahan Chronic osteomyeliti s of right tibia with draining sinus M86.461 ; Chronic obstructive pulmonary disease, unspecified COPD type J44.9 ; Palmer's esophagus determined by endoscopy K22.70 ; Benign prostatic hyperplasia with lower urinary tract symptoms N40.1 ; Splenic vein thrombosis I82.890 ; Hiatal hernia K44.9 ; Tobacco dependence F17.200 and Overweight E66.3 Quinton Callahan III, MD [address] [place] [address] [place] [address] 12/18/2023 Quinton Callahan III, MD [address] [place] [address] [place] [address] 12/21/2023 Quinton Callahan III, MD [address] [place] [address] [place] [address] 12/21/2023 Quinton Callahan III, MD [address] [place] [address] [place] [address] 02/12/2024 Quinton Callahan III, MD [address] [place] [address] [place] [address] 03/04/2024 Quinton Callahan III, MD [address] [place] [address] [place] [address] 05/02/2024 Quinton Callahan III, MD [address] [place] [address] [place] [address] 05/02/2024 Quinton Callahan Peripheral arterial disease I73.[address] [id number] 06/02/2024 Quinton Callahan III, MD [address] [place] [address] [place] [address] 07/23/2024 Quinton Callahan III, MD [address] [place] [address] [place] [address] 08/27/2024 Quinton Callahan III, MD [address] [place] [address] [place] [address] 09/04/2024 Quinton Callahan Assessments Encounter Date Diagnosis [...] on an antibiotic. His pain is mild. 12/02/2024 Chronic obstructive pulmonary disease, unspecified COPD type (ICD-10 - J44.9) He has resumed smoking 5 cigarettes per day. He was counseled about this and made aware of the smoking cessation programs in the area. 12/02/2024 Chronic osteomyeliti s of right tibia with draining sinus (ICD-10 - M86.461) He was seen by vascular surgery just before today's visit. Vascular has referred him to infectious disease for an opinion. The patient I today discussed the possibility of an spqko-qfv-leos amputation and what it would be like walking. 05/02/2024 Peripheral arterial disease (ICD-10 - I73.9) 12/28/2023 Benign prostatic hyperplasia with lower urinary tract symptoms (ICD-10 - N40.1) The tamsulosin was continued today. He will notify me if his symptoms worsen. He has had no retention. He has symptoms of prostatism. 06/12/2024 Palmer's esophagus determined by endoscopy (ICD-10 - K22.70) He is due for an endoscopy and was referred back to his bonus clerk, Dr. Quinton Campos. 07/10/2024 Benign prostatic hyperplasia [...] ulcers or claudication in the left leg. 12/02/2024 Palmer's esophagus determined by endoscopy (ICD-10 - K22.70) He is due for an endoscopy and was referred back to his bonus clerk, Dr. Quinton Campos. 12/28/2023 Palmer's esophagus determined by endoscopy (ICD-10 - K22.70) He is due for an endoscopy and was referred back to his bonus clerk, Dr. Quinton Campos. 06/12/2024 Chronic obstructive pulmonary disease, unspecified COPD type (ICD-10 - J44.9) He has resumed smoking 5 cigarettes per day. He was counseled about this and made aware of the smoking cessation programs in the area. 07/10/2024 Palmer's esophagus determined by endoscopy (ICD-10 - K22.70) He is due for an endoscopy and was referred back to his bonus clerk, Dr. Quinton Campos. 09/09/2024 Palmer's esophagus determined by endoscopy (ICD-10 - K22.70) He is due for an endoscopy and was referred back to his bonus clerk, Dr. Quinton Campos. 09/30/2024 Peripheral arterial disease [...] endoscopy and was referred back to his bonus clerk, Dr. Quinton Campos. 12/02/2024 Benign prostatic hyperplasia with lower urinary tract symptoms (ICD-10 - N40.1) The tamsulosin was continued today. He will notify me if his symptoms worsen. He has had no retention. He has symptoms of prostatism. 12/28/2023 Hiatal hernia (ICD-1 0 - K44.9) [...] smoking cessation programs in the area. 12/02/2024 Splenic vein thrombosis (ICD-10 - I82.890) There have been no further signs of thromboembolism. 12/28/2023 Overweight (ICD-10 - E66.3) His body [...] change in his regimen as needed. 12/02/2024 Hiatal hernia (ICD-1 0 - K44.9) The [...] endoscopy and was referred back to his bonus clerk, Dr. Quinton Campos. 10/29/2024 Mixed hyperlipidemia (ICD-10 - E78.2) A comprehensive laboratory database with a fasting lipid profile will be obtained. He was continued on his currrent meddications. 12/02/2024 Tobacco dependence (ICD-10 - F17.200) I have counseled him about smoking cessation and offered to refer him to smoking cessation programs in the community. He said he would consider this and try to cut down. 12/28/2023 Mixed hyperlipidemia (ICD-10 - E78.2) A [...] aggressive weight loss and sodium restriction. 07/10/2024 Tobacco dependence (ICD-10 - F17.200) I [...] Provider Name:Quinton Callahan , 01/06/2025 02:30:00 PM, [address] [facility] [address], [place], [address], Provider Name:Quinton Callahan , 12/08/2025 02:30:00 PM, [address] [facility] [address], [place], [address], Insurance Providers Payer Name Payer Address Payer Phone Subscriber Number Group Number Insured Name Patient Relationship to Insured Coverage Start Date Coverage End Date [employer] [address] [place] [address] [id number] Zan Olivo Self - patient is the insured 4 MEDICARE NGS [address] [place] [address] [id number] Zan Olivo Self - patient is the [...] right leg Surgical History Surgery Date(Month/Year) Right cqdbi-pmg-hird amputation 4 arteriogram right lower extremity 05/2019 upper endoscopy, [facility], Dr. Quinton Campos, Palmer's esophagus 2014 upper endoscopy and colonosc opy, [facility], Dr. 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
--- OUTSIDE RECORDS SUMMARY | 2024-12-10 19:19 | XMS_ITS | Encounter Summary ---
Author Organization [facility] Address [address] [place] [address] [place] [address] Phone Care Team Providers Care Copy Lathe Tender Name Role Phone Quinton Callahan MD Primary Care Provider +1- [phone] Encounter Details Date Type Department Care Team (Late st Contact Info) Description 11/28/2023 Procedure Pass [facility] [address] [place] [address] Social History Tobacco Use Types Packs/Day Years [...] on filedocumented in this encounter Care Teams Copy Lathe Tender Relationship Specialty Start Date End Date Quinton Callahan MD [address] [place] [address] [place] [address] PCP - General Medical Oncology 11/23/23 documented as of this encounter Additional Source Comments The information contained in this document represents components of the legal health record. It is not the complete legal health record.[facility]
--- OUTSIDE RECORDS SUMMARY | 2024-12-10 19:20 | XMS_ITS | Patient Health Record ---
Author Organization [facility] Address [address] [place] [address] Care Team Providers Care Power Tool Repairer Name Role Phone Quinotn Callahan MD Primary Care Provider Quinton Mao Unavailable [phone] Reason For Referral No Information Medications Medication SIG (Take, Route, Frequency, Duration) Notes Start Date End Date Status Aspir-81 81m 1 tablet orally 1 po qd Active Spiriva HandiHaler 18 MCG INHALE ONE CAP BEULAH BY MOUTH ONCE A DAY Inhalation; Duration: 30 Active Pantoprazole Sodium 40 MG 2 [...] Problem Status W/U Status Risk Notes Problem Screening for malignant neoplasm of colon (631744348) Encounter for screening for malignant neoplasm of colon (Z12.11) Active confirmed Problem Palmer's esophagus (848116636) Palmer's esophagus without dysplasia (K22.70) Active confirmed Problem Gastroesophageal reflux disease without esophagitis (279086322) Gastroesophageal reflux disease without esophagitis (K21.9) Active confirmed Plan Of Treatment Future Test Test Name Order Date UPPER GI ENDOSCOPY 03/19/2013 UPPER GI ENDOSCOPY 06/11/2019 COLONOSCOPY 06/11/2019 Next Appt Details Provider Name:Quinton Valle Campos , 02/04/2025 01:00:00 PM, [address] [place] [address], [address], [place], [address], Insurance Providers Payer Name Payer Address Payer Phone Subscriber Number Group Number Insured Name Patient Relationship to Insured Coverage Start Date Coverage End Date MEDICARE OF [place] [address] [facility] [place] [address] [id number] JUAN FRANCISCO HOWELL Self - patient is the insured Medical (General) History Medical History History ICD Code Colonoscopy in 12/2009 neg e xcept for a hyperplastic polyp, diverticulosis, and internal hemmorhoids GERD with a small area of Ba rrett's esophagus--EGD in 12/2009-small HH-bx neg for dysplasia Splenic vein thrombosis in 1999-- had previously been on Coumadin Denies NC,DM,CVA,renal disease EGD 04/2013 with small area o f Palmer's, no dysplasia nor esophagitis; small hiatal hernia COPD PVD with claudication as below Surgical History Surgery Date(Month/Year) 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 Knott 06/18/2019
== END 2024-12-10 16:45 | disposition home or self-care (01) ==
LOC: HO.HUSH 16:10
PROVIDERS: PCP Internal Medicine Medical Oncology; Visit Provider Nurse Practitioner Family
DX: N28.1 Cyst of kidney, acquired (principal); N40.0 Benign prostatic hyperplasia without lower urinary tract symptoms; N13.30 Unspecified hydronephrosis; Z13.9 Encounter for screening, unspecified
CPT/HCPCS: 99213; G2211

== ENCOUNTER → 2024-12-10 16:09 | Outpatient (BNVA) | payer MEDICARE, SELFPAY | PROVIDERS: PCP Internal Medicine Medical Oncology; Visit Provider Nurse Practitioner Family | DX: N28.1 Cyst of kidney, acquired (principal); N40.0 Benign prostatic hyperplasia without lower urinary tract symptoms; N13.30 Unspecified hydronephrosis | CPT/HCPCS: 51798; 81003; 99212 ==

== ENCOUNTER 2024-12-12 15:30 | Outpatient (AMB) | payer MEDICARE, SELFPAY ==
--- OUTSIDE RECORDS SUMMARY | 2023-08-14 06:30 | XMS_ITS ---
Author Organization [facility] Address [address] [place] [address] Care Team Providers Care Compactor Driver Name Role Phone Quinton Callahan MD Primary Care Provider Unavailab Quinton Alvarez [phone] REASON FOR VISIT Patient presents today for EGD, NUGENT'S ESOPHAGUS Encounters Encounter Location Date Provider Diagnosis [facility] [address] [facility] [address] [place] [address] 08/14/2023 Quinton Campos Plan Of Treatment Next Appt Details Provider Name:Quinton Campos , 02/04/2025 01:00:00 PM, [address], [address], [place], [address], Progress Notes * ANGELA HERNANDEZOB:1960 (64 yo M)Acc No.[id number]:08/14/2023 Progress Notes Patient: JUAN FRANCISCO TONG Provider: Angeles Campos MD :1960 A ge:63 Y S ex:Male Date:08/14/2023 Address:[address] [place] [address] [place] Pcp:Quinton Callahan MD Subjective: * Chief Complaints: [...] 08/14/2023 Generated for Tristen bustamante/Jai/Allysonitting on: 1 05:57 PM EDT
--- OUTSIDE RECORDS SUMMARY | 2024-06-12 07:30 | XMS_ITS ---
Author Organization Quinton Callahan III, MD Address [address] [place] [address] Care Team Providers Care Toggler Name Role Phone Dr. Quinton Callahan III [...] tablet by mouth once daily Active Nystatin 139834 UNIT/GM 1 application Ex ternally Twice a [...] Date Provider Diagnosis Quinton Callahan III, MD [address] [place] [address] [address] [place], [place] [phone] 06/12/2024 Quinton Callahan Peripheral arterial disease I73.9 [...] endoscopy and was referred back to his pickle pumper, Dr. Quinton Campos. 06/12/2024 Chronic obstructive pulmonary [...] 1 tablet by mouth once daily Nystatin 064983 UNIT/GM 1 application Ex ternally Twice a day 12/21/2023 Metoprolol Succinate ER 25 MG 1 tablet Orally Once a day ibuprofen 1 tab Oral Tamsulosin HCl 0.4 MG Take 2 capsules by mouth once daily Next Appt Details Follow Up: 4 Weeks, Reason: OV Provider Name:Quinton Callahan , 01/06/2025 02:30:00 PM, [address] [place] [address] [address], [place], [phone], Provider Name:Quinton Callahan , 12/08/2025 02:30:00 PM, [address] [place] [address] [address], [place], [address], Progress Notes * Ana ENCINAShDOB:1960 (64 yo M)Acc No.[id number]:06/12/2024 Patient: Zan TONG Provider: Angeles Callahan MD :1960 A ge:64 Y S ex:Male Date:06/12/2024 Address:[address] [place], [place] [id number] Subjective: * Chief Complaints: * R ight [...] 2024.. After that he was readmitted to [facility] with infection of the stump and then [...] after dental work 1986upper endoscopy and colonoscopy, [facility], Dr. Quinton Campos 2009upper endoscopy, [facility], Dr. Quinton Campos, Palmer's esophagus 2014arteriogram right lower extremity 05/2019Right krcvl-hof-tfmh amputation 02-04-2024 * Hospitalization/Major Diagno stic Procedure: [...] healthy grandchildren. One of his siblings has Hfyfuvw-Otzbl-Juopc disease. 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 He was born in [place], [place]. He came to [place] in 1984. He is with 6 children. He has 11 grandchildren. He is a of [employer]. He trained at [employer] and served in [employer]. * Medications: T akingNystatin 589994 UNIT/GM Powder 1 application Externally Twice a [...] 10 GM Solution Reconstituted Intravenous Taking Nystatin 143204 UNIT/GM Powder 1 application Externally Twice a [...] endoscopy and was referred back to his pickle pumper, Dr. Quinton Campos. 4 . C hronic [...] Treatment: 2. O thers Continue Nystatin Powder, 592432 UNIT/GM, 1 application, Externally, Twice a day; [...] 06/12/2024 Generated for Tristen bustamante/Jai/Lvransmitting on: 1 05:58 PM EDT History and Physical Notes * [...]
--- OUTSIDE RECORDS SUMMARY | 2024-07-10 07:45 | XMS_ITS ---
Author Organization Quinton Callahan III, MD Address [address] [place] [address] Care Team Providers Care Career Placement Services Counselor Name Role Phone Dr. 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 Vascular has referred him to infectious disease for an opinion. The patient I today discussed the possibility of an hpikv-hdz-mi ee amputation and what it would be like walking. Vital Signs Temperature 98.6 degrees Fahrenheit 07/11/19 25 Blood pressure systolic 108 mm Hg 07/11/19 25 Blood pressure diastolic 53 mm Hg 025 Heart Rate 70 /min 07/10/2024 Height 73 in 07/10/2024 Weight 185 lbs 07/10/2024 BMI 24.41 kg/m2 07/10/2024 Encounters Encounter Location Date Provider Diagnosis Quinton Callahan III, MD [address] [place] [address] [place] [address] 07/10/2024 Quinton Callahan Peripheral arterial disease I73.9 [...] endoscopy and was referred back to his crayon sorting machine feeder, Dr. Quinton Campos. 07/10/2024 Chronic obstructive pulmonary [...] a day ASA 1 tab Oral Nystatin 532194 UNIT/GM 1 application Ex ternally Twice a [...] Provider Name:Quinton Callahan , 01/06/2025 02:30:00 PM, [address] [place] [address] [address], [place], [address], Provider Name:Quinton Callahan , 12/08/2025 02:30:00 PM, [address] [place] [address] [address], [place], [address], Progress Notes * Ana ENCINAShDOB:1960 (64 yo M)Acc No.[id number]:07/10/2024 Progress Notes Patient: Zan TONG Provider: Angeles Callahan MD :1960 A ge:64 Y S ex:Male Date:07/10/2024 Address:[address] [place], [place] [address] Subjective: * Chief Complaints: * O steomyelitis [...] still. There has been discussion of an bfbmp-ceu-klhx amputation. He is currently being treated with [...] after dental work 1986upper endoscopy and colonoscopy, [facility], Dr. Quinton Campos 2009upper endoscopy, [facility], Dr. Quinton Campos, Palmer's esophagus 2014arteriogram right lower extremity 05/2019Right bocoq-ute-qttp amputation 02-04-2024 * Hospitalization/Major Diagno stic Procedure: [...] healthy grandchildren. One of his siblings has Qjgbdmn-Nimyu-Ececm disease. 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 He was born in [place], [place]. He came to [place] in 1984. He is with 6 children. He has 11 grandchildren. He is a of [employer]. He trained at [employer] and served in [employer]. * Medications: T akingDoxycycline Hyclate 100 MG Capsule 1 capsule Orally twice a day Metoprolol Succinate ER 25 MG Tablet Extended Release 24 Hour 1 tablet Orally Once a day Nystatin 324279 UNIT/GM Powder 1 application Externally Twice a [...] tablet Orally Once a day Taking Nystatin 700009 UNIT/GM Powder 1 application Externally Twice a [...] & Time - 06/30/2024 11:45 AM)?ValueReference Range?Vancomycin Sdsvio24.4H 10.0-20.0 - mcg/mL ???Imaging:MR knee RT wo/w [...] otes :He is seeing the vascular surgeon eebrock 2 weeks. He has had an amputation [...] endoscopy and was referred back to his crayon sorting machine feeder, Dr. Quinton Campos. 5 . C hronic [...] Treatment: 2. O thers Continue Nystatin Powder, 077315 UNIT/GM, 1 application, Externally, Twice a day; [...] 07/10/2024 Generated for Printi ng/Faxing/eTransmitting on: 1 05:57 PM EDT History and Physical Notes * [...] RECTAL EXAM: not examined PSYCH: alert, oriented, research coordinator perative with exam, cognitive function intact, good eye contact, speech clear, mood depressed ORAL CAVITY: normal, unremarkable
--- OUTSIDE RECORDS SUMMARY | 2024-07-23 10:04 | XMS_ITS ---
Author Organization Quinton Callahan III, MD Address [address] [place] [address] [place] [address] Care Team Providers Care Circle Shear Operator Name Role Phone Dr. Quinton Callahan III Primary Care Provider REASON FOR VISIT Message Social History Sex Assigned At : Social History Observation Description Sex Assigned At Male Encounters Encounter Location Date Provider Diagnosis Quinton Callahan III, MD [address] [place] [address] [place] [address] 07/23/2024 Quinton Callahan Plan Of Treatment Next Appt Details Provider Name:Quinton Callahan , 01/06/2025 02:30:00 PM, [address] [place] [address] [place], [address], Provider Name:Quinton Callahan , 12/08/2025 02:30:00 PM, [address] [place] [address] [place], [address], Progress Notes * MARY JaunrheahDOB:1960 (64 yo M)Acc No.[id number]:07/23/2024 Patient: Ana TONGh :1960 A ge:64 Y S ex:Male Address:[address] [place] [address], [facility] [address], [place], [address] * true * Date: Generated for Printi ng/Faxing/eTransmitting on: 1 05:57 PM EDT
--- OUTSIDE RECORDS SUMMARY | 2024-08-27 09:45 | XMS_ITS ---
Author Organization Quinton Callahan III, MD Address [address] [place] [address] [place] [address] Care Team Providers Care Health Care Consultant Name Role Phone Dr. Quinton Callahan III Primary Care Provider [phone] REASON FOR VISIT ? Medication hold Social History Sex Assigned At : Social History Observation Description Sex Assigned At Male Encounters Encounter Location Date Provider Diagnosis Quinton Callahan III, MD [address] [place] [address] [place] [address] 08/27/2024 Quinton Callahan Plan Of Treatment Next Appt Details Provider Name:Quinton Callahan , 01/06/2025 02:30:00 PM, [address] [place] [address] [place], [address], Provider Name:Quinton Callahan , 12/08/2025 02:30:00 PM, [address] [place] [address] [place], [address], Progress Notes * HUANG JuanrheahDOB:1960 (64 yo M)Acc No.[id number]:08/27/2024 Patient: Zan TONG :1960 A ge:64 Y S ex:Male Address:[address] [place] [address], [address], [place], [address] * true * Date: Generated for Printi ng/Faxing/eTransmitting on: 1 05:58 PM EDT
--- OUTSIDE RECORDS SUMMARY | 2024-09-04 07:30 | XMS_ITS ---
Author Organization Quinton Callahan III, MD Address [address] [place] [address] [place] [address] Care Team Providers Care Sports Fitness And Wellness Director Name Role Phone Dr. Quinton Callahan III Primary Care Provider REASON FOR VISIT update on pt condition Social History Sex Assigned At : Social History Observation Description Sex Assigned At Male Encounters Encounter Location Date Provider Diagnosis Quinton Callahan III, MD [address] [place] [address] [place] [address] 09/04/2024 Quinton Callahan Plan Of Treatment Next Appt Details Provider Name:Quinton Callahan , 01/06/2025 02:30:00 PM, [address] [place] [address] [place], [address], Provider Name:Quinton Callahan , 12/08/2025 02:30:00 PM, [address] [place] [address] [place], [address], Progress Notes * HUANGAnahDOB:1960 (64 yo M)Acc No.[id number]:09/04/2024 Patient: Zan TONG :1960 A ge:64 Y S ex:Male Address:[address] [place] [address], [address], [place], [address] * true * Date: Generated for Printi ng/Faxing/eTransmitting on: 1 05:57 PM EDT
--- OUTSIDE RECORDS SUMMARY | 2024-09-09 07:30 | XMS_ITS ---
Author Organization Quinton Callahan III, MD Address [address] [place] [address] Care Team Providers Care Carbon Plant Grinder Name Role Phone Dr. Quinton Callahan III [...] Provider Speciality Internal M edicine Referred Provider [facility] er, Cardiology Referred Provider Specialty Cardiology General [...] in a message to Dr. Ferrer's medical technologist chief to ask if the patient can be [...] Date Provider Diagnosis Quinton Callahan III, MD [address] [place] [address] [place] [address] 09/09/2024 Quinton Callahan Irregular heart rate I49.9 [...] endoscopy and was referred back to his on site soil evaluator, Dr. Quinton Campos. 09/09/2024 Chronic obstructive pulmonary [...] Irregular Heart Rate History of A-Fib, Cardiology [facility] Next Appt Details Follow Up: 3 Weeks, Reason: OV Provider Name:Quinton Callahan , 01/06/2025 02:30:00 PM, [address] [place] [address] [address], [place], [address], Provider Name:Quinton Callahan , 12/08/2025 02:30:00 PM, [address] [place] [address] [address], [place], [address], Progress Notes * Ana ENCINAShDOB:1960 (64 yo M)Acc No.[id number]:09/09/2024 Progress Notes Patient: Zan TONG Provider: Angeles Callahan MD :1960 A ge:64 Y S ex:Male Date:09/09/2024 Address:[address] [place] [address], [facility] [id number] Subjective: * Chief Complaints: * R ight [...] after dental work 1985upper endoscopy and colonoscopy, [facility], Dr. Quinton Campos 2009upper endoscopy, [facility], Dr. Quinton Campos, Palmer's esophagus 2014arteriogram right lower extremity 05/2019Right vcsgl-aaz-rhsp amputation 02-04-2024 * Hospitalization/Major Diagno stic Procedure: [...] healthy grandchildren. One of his siblings has Trjpnbo-Fygfn-Fmhft disease. 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 He was born in [place], [place]. He came to [place] in 1984. He is with 6 children. He has 11 grandchildren. He is a of [employer]. He trained at [employer] and served in [employer]. * Medications: T akingMetoprolol Succinate ER 25 [...] 2 tablets by mouth once daily DiscontinuedNystatin 043395 UNIT/GM Powder 1 application Externally Twice a [...] reviewed and reconciled with the patientDiscontinued Nystatin 518312 UNIT/GM Powder 1 application Externally Twice a [...] endoscopy and was referred back to his on site soil evaluator, Dr. Quinton Campos. 5 . C hronic [...] * Treatment: 2. O thers Referral To:Cardiology [facility] Cardiology Reason:Evaluate and Treat Irregular [...] MD Date: 0 09/09/2024 Generated for Tristen bustamante/Jai/eTransmitting on: 1 05:58 PM EDT History and [...] Referred Provider Not nicholas 09/09/2024 Quinton Callahan [facility], Cardiology Evaluate and Treat Irregular Heart Rate History of A-Fib
--- OUTSIDE RECORDS SUMMARY | 2024-09-30 10:00 | XMS_ITS ---
Author Organization Quinton Callahan III, MD Address [address] [place] [address] [place] [address] Care Team Providers Care Returned Goods Receiving Clerk Name Role Phone Dr. Quinton Callahan III [...] Provider Specialty Urology General Notes Jolie Gonzalez [facility] 09/30 03:24:56 PM >I called Dr Flores [...] Specialty Gastroentero logy General Notes Jolie Gonzalez [facility] 09/30 03:23:14 PM >Called Dr Campos office [...] Date Provider Diagnosis Quinton Callahan III, MD [address] [place] [address] [address] [place], [place] [phone] 09/30/2024 Quinton Callahan Chronic osteomyeliti s of [...] endoscopy and was referred back to his information systems coordinator, Dr. Quinton Campos. 09/30/2024 Tobacco dependence (ICD-10 [...] Cephalexin 500 MG TAKE 1 CAPSULE BY [facility] TWICE DAILY Oral Albuterol Sulfate HFA [...] Provider Name:Quinton Callahan , 01/06/2025 02:30:00 PM, [address] [place] [address] [address], [place], [address], Provider Name:Quinton Callahan , 12/08/2025 02:30:00 PM, [address] [place] [address] [address], [place], [address], Progress Notes * Ana ENCINAShDOB:1960 (64 yo M)Acc No.[id number]:09/30/2024 Progress Notes Patient: Zan TONG Provider: Angeles Callahan MD :1960 A ge:64 Y S ex:Male Date:09/30/2024 Address:[address] [place] [phone] Subjective: * Chief Complaints: * R ecurrent [...] esophagus and was referred back to his information systems coordinator today. He umbilical hernia is not symptomatic.? He continues to smoke 17 cigarettes a day and is reducing this number. He had a cyst removed from his back by the film composer. Questions H ave you had any new [...] after dental work 1986upper endoscopy and colonoscopy, [facility], Dr. Quinton Campos 2009upper endoscopy, [facility], Dr. Quinton Campos, Palmer's esophagus 2014arteriogram right lower extremity 05/2019Right lcink-cvq-brcz amputation 02-04-2024 * Hospitalization/Major Diagno stic Procedure: [...] healthy grandchildren. One of his siblings has Lhebmek-Zonfh-Zelia disease. 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 He was born in [place], [place]. He came to [place] in 1984. He is with 6 children. He has 11 grandchildren. He is a of [employer]. He trained at [employer] and served in [employer]. * Medications: T akingMetoprolol Succinate ER 25 [...] endoscopy and was referred back to his information systems coordinator, Dr. Quinton Campos. 8 . T obacco [...] 09/30/2024 Generated for Tristen bustamante/Jai/Henrry on: 1 05:58 PM EDT History and [...]
--- OUTSIDE RECORDS SUMMARY | 2024-10-15 13:00 | XMS_ITS ---
Author Organization Quinton Callahan III, MD Address [address] [place] [address] [place] [address] Care Team Providers Care Schedule Planning Manager Name Role Phone Dr. Quinton Callahan III Primary Care Provider REASON FOR VISIT Annual Exam Social History Sex Assigned At : Social History Observation Description Sex Assigned At Male Encounters Encounter Location Date Provider Diagnosis Quinton Callahan III, MD [address] [place] [address] [place] [address] 10/15/2024 Quinton Callahan Plan Of Treatment Next Appt Details Provider Name:Quinton Callahan , 01/06/2025 02:30:00 PM, [address] [place] [address] [place], [address], Provider Name:Quinton Callahan , 12/08/2025 02:30:00 PM, [address] [place] [address] [place], [address], Progress Notes * Ana ENCINAShDOB:1960 (64 yo M)Acc No.[id number]:10/15/2024 Progress Notes Patient: Zan TONG Provider: Angeles Callahan MD :1960 A ge:64 Y S ex:Male Date:10/15/2024 Address:[address] [place] [address], [address] [place] [id number] Subjective: * Chief Complaints: * 1 . [...] 10/15/2024 Generated for Tristen bustamante/Jai/Henrry on: 1 05:58 PM EDT
--- OUTSIDE RECORDS SUMMARY | 2024-10-29 10:30 | XMS_ITS ---
Author Organization Quinton Callahan III, MD Address [address] [place] [address] Care Team Providers Care Entertainment Lawyer Name Role Phone Dr. Quinton Callahan III Primary Care Provider [phone] Allergies Allergen (clinical drug ingredient) Drug/Non Drug [...] Quinton Callahan III, MD [address] [place] [address] [place] [address] 10/29/2024 Quinton Callahan Chronic osteomyeliti s of [...] endoscopy and was referred back to his dramatic critic, Dr. Quinton Campos. 10/29/2024 Chronic obstructive pulmonary [...] Provider Name:Quinton Callahan , 01/06/2025 02:30:00 PM, [address] [place] [address] KAILYN JURADO, [place], [address], Provider Name:Quinton Callahan , 12/08/2025 02:30:00 PM, [address] [place] [address] KAILYN JURADO, [place], [address], Progress Notes * Ana ENCINAShDOB:1960 (64 yo M)Acc No.[id number]:10/29/2024 Patient: Zan TONG Provider: Angeles Callahan MD :1960 A ge:64 Y S ex:Male Date:10/29/2024 Address:[address] [place], [place] [phone] Subjective: * Chief Complaints: * R ight [...] Palmer's esophagus 2014arteriogram right lower extremity 05/2019Right wafxy-bmj-cyxf amputation 02-04-2024 * Hospitalization/Major Diagno stic Procedure: [...] healthy grandchildren. One of his siblings has Ecdshdo-Cyems-Houza disease. 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 He was born in [place], [place]. He came to [place] in 1984. He is with 6 children. He has 11 grandchildren. He is a of [employer]. He trained at [employer] and served in [employer]. * Medications: T akingAtorvastatin Calcium 10 MG [...] endoscopy and was referred back to his dramatic critic, Dr. Quinton Campos. 5 . C hronic [...] 10/29/2024 Generated for Tristen bustamante/Jai/Allysonitting on: 1 05:57 PM EDT History and [...]
--- OUTSIDE RECORDS SUMMARY | 2024-12-02 11:00 | XMS_ITS ---
Author Organization Quinton Callahan III, MD Address [address] [place] [address] Care Team Providers Care Thermostat Repairer Name Role Phone Dr. Quinton Callahan III Primary Care Provider [phone] Allergies Allergen (clinical drug ingredient) Drug/Non Drug [...] Provider Diagnosis Quinton Callahan III, MD [address] [place] [address] [place] [address] 12/02/2024 Quinton Callahan Chronic osteomyeliti s of [...] I today discussed the possibility of an wluue-tsu-yqcl amputation and what it would be like [...] endoscopy and was referred back to his lasting room machine operator , Dr. Quinton Campos. 12/02/2024 Benign prostatic [...] Name:Quinton Callahan , 01/06/2025 02:30:00 PM, [address] [place] [address] [address], [place], [address], Provider Name:Quinton Callahan , 12/08/2025 02:30:00 PM, [address] [place] [address] [place], [address], Progress Notes * Ana ENCINAShDOB:1960 (64 yo M)Acc No.[id number]:12/02/2024 Progress Notes Patient: Chuy MCCULLOUGHGERALDZan Provider: nAgeles Callahan MD :1960 A ge:64 Y S ex:Male Date:12/02/2024 Address:[address] [place] [address], [place], [id number] Subjective: * Chief Complaints: * A nnual [...] likely he is going to need an tanbh-rej-sptn amputation but we will see what infectious disease service first. He also reports that he was bending forward his wheelchair to rock picker something on the floor he felt [...] for colonoscopy with Dr. Quinton Campos at [facility]. This is currently being arranged. PHQ-9 [...] after dental work 1986upper endoscopy and colonoscopy, [facility], Dr. Quinton Campos 2009upper endoscopy, [facility], Dr. Quinton Campos, Palmer's esophagus 2014arteriogram right lower extremity 05/2019Right gsdle-ixs-oonq amputation 02-04-2024 * Hospitalization/Major Diagno stic Procedure: D enmei Past Hospitalization * Family History: F ather: [...] healthy grandchildren. One of his siblings has Shnzeyo-Hzfas-Pskyv disease. 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 He was born in [place], [place]. He came to [place] in 1984. He is with 6 children. He has 11 grandchildren. He is a of [employer]. He trained at [employer] and served in [employer]. * Medications: T akingAtorvastatin Calcium 10 MG [...] I today discussed the possibility of an diejz-pbu-inht amputation and what it would be like walking. 3 . B arrett's esophagus determined by endoscopy - K22.70 N otes :He is due for an endoscopy and was referred back to his lasting room machine operator, Dr. Quinton Campos. 4 . B enign [...] MD Date: Generated for Tristen bustamante/Jai/eTransmitting on: 05:56 PM EDT History and Physical Notes * [...]
--- NOTE | 2024-12-12 15:32 | A.OFFVIS_ITS ---
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 He reports that the wound has not improved despite ongoing treatment, including collagen therapy and in-home nursing care. The patient attributes his impaired wound healing, in part, to his continued tobacco use, smoking a pack of cigarettes daily. He receives regular follow-up with Dr. Knott. The patient denies alcohol use and reports no additional systemic symptoms. He has stable vital signs, and a chronic wound with exposure to bone is present on the right stump. Review of Systems - Constitutional: Denies fever or malaise. - Respiratory: Denies symptoms; lungs described as clear. - Cardiovascular: Denies symptoms; heart rate rhythm reported as clear. - Gastrointestinal: Denies abdominal issues; described as soft and nontender. - Extremities: Reports chronic open wound on the right lower extremity with exposure to bone. Physical Exam - Vitals- Stable. - Cardiopulmonary- Lungs clear; heart rate rhythm clear. - Abdomen- Soft and nontender. - Extremities- Chronic open wound on the stump of the right lower extremity with exposure to bone. Results Plan Patient was informed and verbally consented to the use of an ambient scribe for clinic note documentation during this visit. 1. Chronic Osteomyelitis Of Right Lower Limb Stump I prescribed doxycycline 100 mg BID for prevention as the patient's chronic osteomyelitis persists. We discussed the limited success with prior treatments and concluded with transitioning off Levaquin. An above-knee amputation (AKA) is a potential solution if healing continues to falter, though a wound vacuum- assisted closure (VAC) was deemed unlikely to help. Smoking cessation was highlighted for improved healing. 2. Non-Healing Wound Of Right Lower Limb Stump Management includes continued wound care and antibiotics. I emphasized smoking cessation's importance in wound healing and discussed surgical intervention options if the wound remains non-healing. The patient receives collagen treatment and home nursing care, crucial in his care plan. Discussion Notes I have reviewed with Zan Encinas the lack of healing in his right lower extremity stump wound, emphasizing the role of chronic osteomyelitis. I discussed the risks and benefits of continuing doxycycline therapy and the potential need for more invasive procedures such as an above-knee amputation if no improvement is observed. We thoroughly discussed the effects of smoking on wound healing and strongly recommended cessation. The patient is aware of the need to stay engaged with ongoing wound care. Medical Decision Making Shanices chronic osteomyelitis and non-healing stump wound present challenges due to ongoing infection risks and his continuing smoking habit. Transitioning to doxycycline offers preventive antibacterial coverage, crucial given osteomyelitis's chronic nature. I considered his tasks of compliance with collagen therapy and collaboration with wound center staff. Achieving smoking cessation is imperative for healing, albeit the patient's current struggle. The risk for increased complications weighs heavily without lifestyle changes or potential future surgical interventions, should other measures not suffice. Patient Instructions - Take prescribed doxycycline 100 mg twice daily as directed. - Continue with collagen treatments and follow wound care instructions provided by the visiting nurse. - Strongly consider quitting smoking. Support and resources for cessation can improve wound healing. - Follow up with Dr. Knott as scheduled. - Monitor wound status and report any signs of infection, such as increased redness, swelling, or fever. - Notify healthcare providers if no improvement in wound healing is noticed in the coming weeks. HPI Comments Details: [facility] Medical History Peripheral arterial disease Below-knee amputation of right lower extremity Osteomyelitis Krish angina Left bundle branch block Bakers cyst Nicotine dependence, cigarettes, uncomplicated Arthritis BPH (benign prostatic hyperplasia) Elevated cholesterol Complex regional pain syndrome i of right lower limb S/P angiogram of extremity (07/18/23) Atrial fibrillation History of Palmer's esophagus Splenic vein thrombosis History of femoral angiogram GERD (gastroesophageal reflux disease) COPD (chronic obstructive pulmonary disease) Surgical History Hx of BKA History of tonsillectomy Hx of oral surgery Hx of tracheostomy History of esophagogastroduodenoscopy (EGD) H/O colonoscopy Social History Household Members: Family and Children Household Members Other:: Son, son girlfriend, grandbaby Housing: Apartment Housing Other:: 3 stairs to climb Are you a primary aged or disabled care worker to a significant other at home: No Do you presently have visiting nurse or other home services: Yes Comment: Dr Knott made aware of absent pulse and sensation in right foot Patient Tobacco Use Status: Current everyday Tobacco user Tobacco use type: Cigarette Cigarette Packs Per Day: 1 Cigarettes Per Day: 20.0 Years Smoked: 50 e-Cigarette/Vaping Use: Never Used Second Hand Smoke Exposure: No Substance Use Type: Marijuana Advance Directives Date on File: 01/17/24 service: Yes Physical Exam Vital Signs: Last Vital Signs Pulse 63 12/12/24 15:37 Pulse Ox 98 12/12/24 15:37 Assessment & Plan Assessment & Plan (1) Cellulitis of right lower extremity: Code(s): L03.115 - Cellulitis of right lower limb Category: Medical Plan as above Medications: New 2 doxycycline hyclate 100 mg PO BID 60 caps 3RF 30 days Coding Level of Care Code Est Pt Level 3 (58002) Diagnoses Cellulitis of right lower extremity L03.115
[2024-12-12 15:37] VITALS: PULSE 63; O2SAT 98
--- OUTSIDE RECORDS SUMMARY | 2024-12-12 17:56 | XMS_ITS | Encounter Summary ---
Author Organization [facility] Address [address] [place] [address] [place] [address] Phone Care Team Providers Care Bundle Cutter Name Role Phone Quinton Callahan MD Primary Care Provider +1- [phone] Encounter Details Date Type Department Care Team (Late st Contact Info) Description 12/02/2023 Procedure Pass [facility] Periop [address] [place] [address] Social History Tobacco Use Types Packs/Day Years [...] on filedocumented in this encounter Care Teams Bundle Cutter Relationship Specialty Start Date End Date Quinton Callahan MD [address] [place] [address] [place] [address] PCP - General Medical Oncology 11/23/23 documented as of this encounter Additional Source Comments The information contained in this document represents components of the legal health record. It is not the complete legal health record.[facility]
--- OUTSIDE RECORDS SUMMARY | 2024-12-12 17:56 | XMS_ITS | Encounter Summary ---
Author Organization [facility] Address [address] [place] [address] [place] [address] Phone Care Team Providers Care Box Lining Machine Feeder Name Role Phone Quinton Callahan MD Primary Care Provider +1- [phone] Encounter Details Date Type Department Care Team (Late st Contact Info) Description 12/08/2023 Procedure Pass [facility] EKG [address] [place] [address] Social History Tobacco Use Types Packs/Day Years [...] on filedocumented in this encounter Care Teams Box Lining Machine Feeder Relationship Specialty Start Date End Date Quinton Callahan MD [address] [place] [address] [place] [address] PCP - General Medical Oncology 11/23/23 documented as of this encounter Additional Source Comments The information contained in this document represents components of the legal health record. It is not the complete legal health record.[facility]
--- OUTSIDE RECORDS SUMMARY | 2024-12-12 17:57 | XMS_ITS | Patient Health Record ---
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 Quinton Callahan III Primary Care Provider Allergies Allergen (clinical drug ingredient) Drug/Non Drug Allergy documented on EMR Reaction Allergy Type Onset Date Status No Known Drug Allergy Unknown Drug Allergy Active No Known Food Allergy Unknown Drug Allergy Active Results Component Value Reference Range Notes Cancelled Chem Reviewed date:01/07/2024 01:28:15 PM Interpretation: Performing Lab:[facility], [address] [place] [phone] Notes/Report: Cancelled Chem SEE NOTE NO SPECIMEN R ECEIVED FOR BUN AND CREAT US arterial duplex LE RT Reviewed date:01/24/2024 07:41:27 AM Interpretation: Performing Lab: Notes/Report: [address] [address] Ultrasound Report Signed Patient: Zan Encinas MR#: [id number] : 1960 Acct:[id number] Age/Sex: 63 / M ADM Date: 01/01/24 Loc: HO.US Attending Dr: Bimal Knott MD Ordering Physician: Sera Saxena PA-C Date of Service: 01/01/24 Procedure(s): US arterial duplex LE RT Accession Number(s): [id number] cc: Quinton Callahan MD; Sera Saxena PA-C [...] 01/23/2024 01:03 PM [facility] Dictated By: Coleman Chaidez MD Signed By: <Electronically signed by Coleman Chaidez MD in OV> 01/23/24 1303 DD/ 1430 TD/TT: 01/01/24 1517 Route Sales Driver: [address] [address] Ultrasound Report Signed Patient: Zan Encinas MR#: [id number] : 1960 Acct:[id number] Age/Sex: 63 / M ADM Date: 01/01/24 Loc: HO.US Attending Dr: Bimal Knott MD Ordering Physician: Sera Saxena PA-C Date of Service: 01/01/24 Procedure(s): US arterial duplex LE RT Accession Number(s): [id number] cc: Quinton Callahan MD; Sera Saxena PA-C [...] 01/23/2024 01:03 PM [facility] Dictated By: Coleman Chaidez MD Signed By: <Electronically signed by Coleman Chaidez MD in OV> 01/23/24 1303 DD/ 1430 TD/TT: 01/01/24 1517 Route Sales Driver: Complete Blood Count Auto Di ff Reviewed date:01/07/2024 01:28:15 PM Interpretation: Performing Lab:[address] [phone] Notes/Report: White Blood Count 8.2 4.8-10.8 X10*3/uL [...] Drip Reviewed date:01/08/2024 08:33:39 AM Interpretation: Performing Lab:[facility], [address] [place] [phone] Notes/Report: PTT Heparin Drip 33.9 53-77.9 SEC For information regarding the monitoring of heparin therapy, please refer to Pharmacy. Fibrinogen Reviewed date:01/08/2024 08:33:39 AM Interpretation: Performing Lab:[facility], [address] [place] [phone] Notes/Report: Fibrinogen 465 259-690 MG/DL Blood Urea Nitrogen Reviewed date:01/07/2024 01:28:15 PM Interpretation: Performing Lab:[facility], [address] [place] [phone] Notes/Report: Blood Urea Nitrogen 16 9-16 mg/dL Creatinine Reviewed date:01/07/2024 01:28:15 PM Interpretation: Performing Lab:[address] [address] Notes/Report: Creatinine 0.81 0.5-1.4 mg/dL Creatinine Clr Calc Pharmacy 99.7 eGFR (calculated from the MDRD study equation) and eCrCl (calculated from the Cockcroft-Gault equation) are based on different parameters and may not yield comparable results. If eCrCl result is absurd, please check patient's height/weight. Estimated Glomerular Filt Rate > 60 NOTE: For -[place]onese individuals, multiply the result by 1.210. Chronic Kidney Disease: Estimated GFR < 60 mL/min/1.73m2 Severe Kidney Disease: Estimated GFR < 15 mL/min/1.73m2 ACT LR Reviewed date:01/16/2024 08:51:12 AM Interpretation: Performing Lab:[address] [address] Notes/Report: out of range low [id number] HO.MARUSA 0906 HO.MULVEC Fibrinogen Reviewed date:01/08/2024 08:33:39 AM Interpretation: Performing Lab:[address] [address] Notes/Report: Fibrinogen 445 259-690 MG/DL Complete Blood Count no Diff Reviewed date:01/10/2024 09:47:57 AM Interpretation: Performing Lab:[facility], [address] [place] [phone] Notes/Report: White Blood Count 28.7 4.8-10.8 X10*3/uL [...] ff Reviewed date:01/08/2024 08:33:39 AM Interpretation: Performing Lab:[facility], [address] [place] [phone] Notes/Report: White Blood Count 10.1 4.8-10.8 X10*3/uL [...] gy Reviewed date:01/08/2024 02:05:08 PM Interpretation: Performing Lab:[facility], [address] [place] [phone] Notes/Report: Hold Lav - Possible Hematology SEE NOTE Specimen will be held untested for 8 hours. Call Hematology if testing is desired. PTT Heparin Drip Reviewed date:01/08/2024 08:33:39 AM Interpretation: Performing Lab:[facility], [address] [place] [phone] Notes/Report: PTT Heparin Drip 40.9 53-77.9 SEC For information regarding the monitoring of heparin therapy, please refer to Pharmacy. Fibrinogen Reviewed date:01/08/2024 08:33:39 AM Interpretation: Performing Lab:[facility], [address] [place] [phone] Notes/Report: Fibrinogen 432 259-690 MG/DL Basic Metabolic Panel Reviewed date:01/08/2024 08:33:39 AM Interpretation: Performing Lab:[facility], [address] [place] [phone] Notes/Report: Sodium 138 135-145 mmol/L Potassium 3.8 [...] Phosphorus Reviewed date:01/08/2024 08:33:39 AM Interpretation: Performing Lab:[address] [phone] Notes/Report: Phosphorus 2.9 2.7-4.5 mg/dL Magnesium Reviewed date:01/08/2024 08:33:39 AM Interpretation: Performing Lab:[address] [address] Notes/Report: Magnesium 1.8 1.6-2.6 mg/dL Albumin Level Reviewed date:01/08/2024 08:33:39 AM Interpretation: Performing Lab:[address] [phone] Notes/Report: Albumin Level 3.2 3.5-5.0 g/dL ACT LR Reviewed date:01/11/2024 01:49:27 PM Interpretation: Performing Lab:[address] [address] Notes/Report: 109 [id number] HO.MARUSA 0846 HO.MULVEC ACT 109 79-173 Celite s Results are converted to a reference Celite ACT value in seconds. A reference interval is unavailable for ACT. Kathy Flores Reviewed date:01/08/2024 02:05:08 PM Interpretation: Performing Lab:[address] [phone] Notes/Report: Kathy Flores See Note Specimen held untested for 24 hours; Call to request Chemistry testing. SLIDE REVIEW Reviewed date:01/08/2024 02:05:08 PM Interpretation: Performing Lab:[address] [phone] Notes/Report: SLIDE REVIEW VERIFIED Type and Screen Reviewed date:01/11/2024 01:49:26 PM Interpretation: Performing Lab:[facility], [address] [place] [phone] Notes/Report: Results at Issue Units as of [...] Cells Reviewed date:01/11/2024 01:49:26 PM Interpretation: Performing Lab:[facility], [address] [place] [phone] Notes/Report: Red Blood Cells [id number] ON RC Red Blood Cells TRANSFUSED 01/09/24 0929 Red Blood Cells [id number] OP RC Red Blood Cells TRANSFUSED 01/09/24 1520 Red Blood Cells [id number] OP RC Red Blood Cells TRANSFUSED 01/10/24 0154 Red Blood Cells [id number] OP RC Red Blood Cells TRANSFUSED 01/10/24 1938 Red Blood Cells [id number] OP RC Red Blood Cells TRANSFUSED 01/10/242025 Red Blood Cells [id number] OP RC Red Blood Cells TRANSFUSED 01/10/24 2156 Red Blood Cells [id number] OP RC Red Blood Cells TRANSFUSED 01/10/242025 Red Blood Cells [id number] OP RC Red Blood Cells TRANSFUSED 01/11/24 0159 Red Blood Cells [id number] OP RC Red Blood Cells TRANSFUSED 01/11/24 0159 Arterial Blood Gases - POC Reviewed date:01/08/2024 02:05:08 PM Interpretation: Performing Lab:[facility], [address] [place] [phone] Notes/Report: ABG pH 7.42 7.35-7.45 METER #: [id number] additional_comment: Cbgreavet ctrbpavlova ABG pCO2 34 32-45 mmHg METER #: [id number] additional_comment: Cbgreavet ctrbpavlova ABG pO2 95 83-108 mmHg METER #: [id number] additional_comment: Cbgreavet ctrbpavlova ABG Base Excess -1.2 METER #: [id number] additional_comment: Cbgreavet ctrbpavlova ABG HCO3 22 22-26 mmol/L METER #: [id number] additional_comment: Cbgreavet ctrbpavlova ABG O2 % Saturation 99.0 METER #: [id number] additional_comment: Cbgreavet ctrbpavlova Pheresis Platelets Reviewed date:01/11/2024 01:49:27 PM Interpretation: Performing Lab:[facility], [address] [place] [phone] Notes/Report: Pheresis Platelets [id number] OP PHPLT Pheresis Platelets TRANSFUSED 01/11/24 0133 Hold Green Gel Reviewed date:01/08/2024 02:05:08 PM Interpretation: Performing Lab:[facility], [address] [place] [phone] Notes/Report: Hold Green Gel See Note Specimen held untested for 24 hours; Call to request Chemistry testing. Fresh Frozen Plasma Reviewed date:01/11/2024 01:49:27 PM Interpretation: Performing Lab:[facility], [address] [place] [phone] Notes/Report: Fresh Frozen Plasma [id number] AP FFP Fresh Frozen Plasma TRANSFUSED 01/11/24 0159 Fresh Frozen Plasma [id number] OP FFP Fresh Frozen Plasma TRANSFUSED 01/10/[address] abdomen pelvis w con Reviewed date:01/08/2024 02:05:08 PM Interpretation: Performing Lab: Notes/Report: [address] [address] [address] Scan Report Signed Patient: Zan Encinas MR#: [id number] : 1960 Acct:[id number] Age/Sex: 63 / M ADM Date: 01/07/24 Loc: [facility] 255-[address]: Bimal Knott MD Ordering Physician: Sawyer Case MD Date of Service: 01/08/24 Procedure(s): CT abdomen pelvis w IV con Accession Number(s): [id number] cc: Quinton Callahan MD; Sawyer Case MD [...] right superficial femoral vein. There are likely [place] bypass femoral, bilaterally.. OSSEOUS STRUCTURES: Multilevel thoracolumbar [...] 01/08/2024 12:21 PM [facility] Dictated By: Theo Lagunas MD Signed By: <Electronically signed by Theo Steven MD in OV> 01/08/24 1221 DD/ 1105 TD/TT: 01/08/24 1125 Route Sales Driver: [place] [address] CT Scan Report Signed Patient: Zan Encinas MR#: [id number] : 1960 Acct:[id number] Age/Sex: 63 / M ADM Date: 01/07/24 Loc: [facility] 255-[address]: Bimal Knott MD Ordering Physician: Sawyer Case MD Date of Service: 01/08/24 Procedure(s): CT abd omen pelvis w IV con Accession Number(s): [id number] cc: Quinton Callahan MD; Sawyer Case MD [...] right superficial femoral vein. There are likely [place] bypass femoral, bilaterally.. OSSEOUS STRUCTURES: Multilevel thoracolumbar [...] 01/08/24 1221 DD/ 1105 TD/TT: 01/08/24 1125 Route Sales Driver: Fibrinogen Reviewed date:01/08/2024 08:33:39 AM Interpretation: Performing Lab:[facility], [address] [place] [phone] Notes/Report: Fibrinogen 441 259-690 MG/DL Complete Blood Count Auto Di ff Reviewed date:01/08/2024 02:05:08 PM Interpretation: Performing Lab:[facility], [address] [place] [phone] Notes/Report: White Blood Count 20.0 4.8-10.8 X10*3/uL [...] Drip Reviewed date:01/08/2024 02:05:08 PM Interpretation: Performing Lab:[facility], [address] [place] [phone] Notes/Report: PTT Heparin Drip > 200.0 53-77.9 SEC Results of PTT-HD called to and read back by MARIELA on 01/08/24 at 1155 by FROY. For information regarding the monitoring of heparin therapy, please refer to Pharmacy. Basic Metabolic Panel Reviewed date:01/10/2024 09:47:57 AM Interpretation: Performing Lab:[facility], [address] [place] [phone] Notes/Report: Sodium 134 135-145 mmol/L Potassium 4.9 [...] Phosphorus Reviewed date:01/10/2024 09:47:57 AM Interpretation: Performing Lab:[facility], [address] [place] [phone] Notes/Report: Phosphorus 4.1 2.7-4.5 mg/dL Magnesium Reviewed date:01/10/2024 09:47:57 AM Interpretation: Performing Lab:[facility], [address] [place] [phone] Notes/Report: Magnesium 1.9 1.6-2.6 mg/dL Complete Blood Count Auto Di ff Reviewed date:01/10/2024 09:47:57 AM Interpretation: Performing Lab:[facility], [address] [place] [phone] Notes/Report: White Blood Count 21.8 4.8-10.8 X10*3/uL [...] REVIEW Reviewed date:01/10/2024 09:47:57 AM Interpretation: Performing Lab:[facility], [address] [place] [phone] Notes/Report: SLIDE REVIEW VERIFIED ACT LR Reviewed date:01/11/2024 01:49:27 PM Interpretation: Performing Lab:[facility], [address] [place] [phone] Notes/Report: 203 [id number] HOASHLEY 0855 mulvec ACT 203 79-173 Celite s Results are converted to a reference Celite ACT value in seconds. A reference interval is unavailable for ACT. Complete Blood Count Auto Di ff Reviewed date:01/10/2024 09:47:57 AM Interpretation: Performing Lab:[facility], [address] [place] [phone] Notes/Report: White Blood Count 16.7 4.8-10.8 X10*3/uL [...] gy Reviewed date:01/10/2024 09:47:57 AM Interpretation: Performing Lab:[address] [address] Notes/Report: Hold Lav - Possible Hematology SEE NOTE Specimen will be held untested for 8 hours. Call Hematology if testing is desired. Prothrombin Time INR Reviewed date:01/10/2024 09:47:57 AM Interpretation: Performing Lab:[facility], [address] [place] [phone] Notes/Report: Prothrombin Time 11.5 10.9-12.4 SEC INTERNATIONAL [...] Drip Reviewed date:01/10/2024 09:47:57 AM Interpretation: Performing Lab:[address] [phone] Notes/Report: PTT Heparin Drip 28.1 53-77.9 SEC For information regarding the monitoring of heparin therapy, please refer to Pharmacy. Basic Metabolic Panel Reviewed date:01/10/2024 09:47:57 AM Interpretation: Performing Lab:[address] [address] Notes/Report: Sodium 136 135-145 mmol/L Potassium 4.5 [...] Phosphorus Reviewed date:01/10/2024 09:47:57 AM Interpretation: Performing Lab:[address] [address] Notes/Report: Phosphorus 4.0 2.7-4.5 mg/dL Magnesium Reviewed date:01/10/2024 09:47:57 AM Interpretation: Performing Lab:[address] [address] Notes/Report: Magnesium 1.9 1.6-2.6 mg/dL Albumin Level Reviewed date:01/10/2024 09:47:57 AM Interpretation: Performing Lab:[address] [address] Notes/Report: Albumin Level 3.2 3.5-5.0 g/dL SLIDE REVIEW Reviewed date:01/10/2024 09:47:57 AM Interpretation: Performing Lab:[address] [address] Notes/Report: SLIDE REVIEW VERIFIED Complete Blood Count Auto Di ff Reviewed date:01/10/2024 09:47:57 AM Interpretation: Performing Lab:[address] [address] Notes/Report: White Blood Count 10.8 4.8-10.8 X10*3/uL [...] Drip Reviewed date:01/10/2024 09:47:57 AM Interpretation: Performing Lab:[facility], [address] [place] [phone] Notes/Report: PTT Heparin Drip 34.2 53-77.9 SEC For information regarding the monitoring of heparin therapy, please refer to Pharmacy. Complete Blood Count Auto Di ff Reviewed date:01/10/2024 09:47:57 AM Interpretation: Performing Lab:[facility], [address] [place] [phone] Notes/Report: White Blood Count 8.4 4.8-10.8 X10*3/uL [...] Panel Reviewed date:01/10/2024 09:47:57 AM Interpretation: Performing Lab:[facility], [address] [place] [phone] Notes/Report: Sodium 135 135-145 mmol/L Potassium 4.5 [...] Phosphorus Reviewed date:01/10/2024 09:47:57 AM Interpretation: Performing Lab:[facility], [address] [place] [phone] Notes/Report: Phosphorus 3.0 2.7-4.5 mg/dL Magnesium Reviewed date:01/10/2024 09:47:57 AM Interpretation: Performing Lab:[facility], [address] [place] [phone] Notes/Report: Magnesium 2.2 1.6-2.6 mg/dL PTT Heparin Drip Reviewed date:01/10/2024 09:47:57 AM Interpretation: Performing Lab:[facility], [address] [place] [phone] Notes/Report: PTT Heparin Drip 55.2 53-77.9 SEC For information regarding the monitoring of heparin therapy, please refer to Pharmacy. Complete Blood Count Auto Di ff Reviewed date:01/10/2024 09:47:57 AM Interpretation: Performing Lab:[facility], [address] [place] [phone] Notes/Report: White Blood Count 9.2 4.8-10.8 X10*3/uL [...] Hematocrit Reviewed date:01/11/2024 01:49:27 PM Interpretation: Performing Lab:[address] [phone] Notes/Report: Hemoglobin 3.3 14.0-18.0 g/dl Results of HGB called to and read back by JONAS on 01/10/24 at 1959 by BORIS. Hematocrit 9.9 42.0-52.0 % Results of HCT called to and read back by JONAS on 01/10/24 at 2001 by BORIS. Pathologist Review - CBC Reviewed date:01/11/2024 01:49:26 PM Interpretation: Performing Lab:[facility], [address] [place] [phone] Notes/Report: Pathologist Review - CBC SEE NOTE Normochromic normocytic anemia. - Javi Farias M.D. Pathology Prothrombin Time INR Reviewed date:01/10/2024 09:47:57 AM Interpretation: Performing Lab:[address] [address] Notes/Report: Prothrombin Time 12.1 10.9-12.4 SEC INTERNATIONAL [...] Drip Reviewed date:01/10/2024 09:47:57 AM Interpretation: Performing Lab:[facility], [address] [place] [phone] Notes/Report: PTT Heparin Drip 44.5 53-77.9 SEC For information regarding the monitoring of heparin therapy, please refer to Pharmacy. Comprehensive Met. Panel Reviewed date:01/11/2024 01:49:27 PM Interpretation: Performing Lab:[facility], [address] [place] [phone] Notes/Report: Sodium 135 135-145 mmol/L Potassium 4.9 [...] Panel Reviewed date:01/10/2024 09:47:57 AM Interpretation: Performing Lab:[facility], [address] [place] [phone] Notes/Report: Sodium 136 135-145 mmol/L Potassium 4.1 [...] Acid Reviewed date:01/11/2024 01:49:27 PM Interpretation: Performing Lab:[facility], [address] [place] [phone] Notes/Report: Lactic Acid 7.8 0.5-2.0 mmol/L Critical value for test(s): LACTA Results called to and read back by:VIKRAM Person calling: TANG Date:01-10-2024 Time:2121 Phosphorus Reviewed date:01/10/2024 09:47:57 AM Interpretation: Performing Lab:[facility], [address] [place] [phone] Notes/Report: Phosphorus 2.8 2.7-4.5 mg/dL Magnesium Reviewed date:01/10/2024 09:47:57 AM Interpretation: Performing Lab:[facility], [address] [place] [phone] Notes/Report: Magnesium 2.0 1.6-2.6 mg/dL Albumin Level Reviewed date:01/10/2024 09:47:57 AM Interpretation: Performing Lab:[facility], [address] [place] [phone] Notes/Report: Albumin Level 3.5 3.5-5.0 g/dL Lactic Acid-LAB USE ONLY Reviewed date:01/11/2024 01:49:27 PM Interpretation: Performing Lab:[facility], [address] [place] [phone] Notes/Report: Lactic Acid-LAB USE ONLY 1.9 0.5-2.0 mmol/L Venous Blood Gases - POC Reviewed date:01/11/2024 01:49:27 PM Interpretation: Performing Lab:[facility], [address] [place] [phone] Notes/Report: VBG pH 7.42 7.32-7.43 METER #: [id number] VBG pCO2 25 METER #: [id number] VBG pO2 76 METER #: [id number] 0250C VBG Base Excess -6.7 METER #: [id number] VBG HCO3 16 22-26 mmol/L METER #: [id number] 0250C VBG O2 % Saturation TNP Hold Green Gel Reviewed date:01/11/2024 01:49:27 PM Interpretation: Performing Lab:[facility], [address] [place] [phone] Notes/Report: Hold Green Gel See Note Specimen held untested for 24 hours; Call to request Chemistry testing. CT abdomen pelvis w con Reviewed date:01/11/2024 01:49:27 PM Interpretation: Performing Lab: Notes/Report: [address] [address] [address] Scan Report Signed Patient: Zan Encinas MR#: [id number] : 1960 Acct:[id number] Age/Sex: 63 / M ADM Date: 01/07/24 Loc: .[facility] 255-[address]: Bimal Knott MD Ordering Physician: Som Vela NP Date of Service: 01/10/24 Procedure(s): CT abdomen pelvis w IV con Accession Number(s): [id number] cc: Quinton Callahan MD; Som Vela NP [...] 01/10/2024 10:00 PM [facility] Dictated By: Jarret Ferrara MD Signed By: <Electronically signed by Jarret Ferrara MD in OV> 01/10/242199 DD/ 21 TD/TT: 01/10/242021 Route Sales Driver: [place] [address] CT Scan Report Signed Patient: Zan Encinas MR#: [id number] : 1960 Acct:[id number] Age/Sex: 63 / M ADM Date: 01/07/24 Loc: .[facility] 255-[address]: Bimal Knott MD Ordering Physician: Som Vela NP Date of Service: 01/10/24 Procedure(s): CT abd omen pelvis w IV con Accession Number(s): [id number] cc: Quinton Callahan MD; Som Vela NP [...] 01/10/2024 10:00 PM [facility] Dictated By: Jarret Ferrara MD Signed By: <Electronically signed by Jarret Ferrara MD in OV> 01/10/242199 DD/ 21 TD/TT: 01/10/242021 Route Sales Driver: PTT Heparin Drip Reviewed date:01/11/2024 01:49:27 PM Interpretation: Performing Lab:[facility], [address] [place] [phone] Notes/Report: PTT Heparin Drip 80.2 53-77.9 SEC For information regarding the monitoring of heparin therapy, please refer to Pharmacy. PTT Heparin Drip Reviewed date:01/11/2024 01:49:27 PM Interpretation: Performing Lab:[facility], [address] [place] [phone] Notes/Report: PTT Heparin Drip 66.0 53-77.9 SEC For information regarding the monitoring of heparin therapy, please refer to Pharmacy. Complete Blood Count Auto Di ff Reviewed date:01/11/2024 01:49:26 PM Interpretation: Performing Lab:[facility], [address] [place] [phone] Notes/Report: White Blood Count 17.6 4.8-10.8 X10*3/uL [...] Diff Reviewed date:01/12/2024 07:43:31 AM Interpretation: Performing Lab:[facility], [address] [place] [phone] Notes/Report: White Blood Count 12.3 4.8-10.8 X10*3/uL [...] ff Reviewed date:01/11/2024 01:49:26 PM Interpretation: Performing Lab:[facility], [address] [place] [phone] Notes/Report: White Blood Count 18.2 4.8-10.8 X10*3/uL [...] Panel Reviewed date:01/11/2024 01:49:26 PM Interpretation: Performing Lab:[facility], [address] [place] [phone] Notes/Report: Sodium 135 135-145 mmol/L Potassium 4.6 [...] Phosphorus Reviewed date:01/11/2024 01:49:26 PM Interpretation: Performing Lab:[facility], [address] [place] [phone] Notes/Report: Phosphorus 4.3 2.7-4.5 mg/dL Magnesium Reviewed date:01/11/2024 01:49:26 PM Interpretation: Performing Lab:[facility], [address] [place] [place] [phone] Notes/Report: Magnesium 2.2 1.6-2.6 mg/dL Albumin Level Reviewed date:01/11/2024 01:49:26 PM Interpretation: Performing Lab:[facility], [address] [place] [place] [phone] Notes/Report: Albumin Level 3.6 3.5-5.0 g/dL SLIDE REVIEW Reviewed date:01/11/2024 01:49:26 PM Interpretation: Performing Lab:[facility], [address] [place] [place] [phone] Notes/Report: SLIDE REVIEW VERIFIED Venous Blood Gases - POC Reviewed date:01/11/2024 01:49:26 PM Interpretation: Performing Lab:[facility], [address] [place] [phone] Notes/Report: VBG pH 7.49 7.32-7.43 METER #: [id number] additional_comment: Jeovany saucedo VBG pCO2 35 METER #: [id number] additional_comment: Jeoavny saucedo VBG pO2 57 METER #: [id number] additional_comment: Cb crochia ctrbb henriquezc VBG Base Excess 4.0 METER #: [id number] additional_comment: Jeovany aguilarbb henriquezc VBG HCO3 27 22-26 mmol/L METER #: [id number] additional_comment: Jeovany aguilarbb henriquezc VBG O2 % Saturation 92.0 METER #: [id number] additional_comment: Jeovany stevenson henriquemarek Venous Blood Gases - POC Reviewed date:01/11/2024 01:49:26 PM Interpretation: Performing Lab:[address] [phone] Notes/Report: VBG pH 7.42 7.32-7.43 METER #: [id number] additional_comment: Jeovany aguilarbb henriquezc VBG pCO2 42 METER #: [id number] additional_comment: Jeovany aguilarbb henriquezc VBG pO2 35 METER #: [id number] additional_comment: Jeovany stevenson henriquezc VBG Base Excess 3.7 METER #: [id number] additional_comment: Jeovany stevenson henriquezc VBG HCO3 28 22-26 mmol/L METER #: [id number] additional_comment: Jeovany aguilarbb henriquezc VBG O2 % Saturation 62.0 METER #: [id number] additional_comment: Jeovany aguilarbb henriquezc Complete Blood Count Auto Di ff Reviewed date:01/11/2024 01:49:26 PM Interpretation: Performing Lab:[address] [phone] Notes/Report: White Blood Count 14.9 4.8-10.8 X10*3/uL [...] ff Reviewed date:01/11/2024 08:19:34 PM Interpretation: Performing Lab:[facility], [address] [place] [phone] Notes/Report: White Blood Count 14.3 4.8-10.8 X10*3/uL [...] REVIEW Reviewed date:01/11/2024 08:19:34 PM Interpretation: Performing Lab:[facility], [address] [place] [phone] Notes/Report: SLIDE REVIEW VERIFIED Basic Metabolic Panel Reviewed date:01/12/2024 07:43:31 AM Interpretation: Performing Lab:[facility], [address] [place] [phone] Notes/Report: Sodium 133 135-145 mmol/L Potassium 4.0 [...] Phosphorus Reviewed date:01/12/2024 07:43:31 AM Interpretation: Performing Lab:[facility], [address] [place] [phone] Notes/Report: Phosphorus 2.7 2.7-4.5 mg/dL Magnesium Reviewed date:01/12/2024 07:43:31 AM Interpretation: Performing Lab:[facility], [address] [place] [phone] Notes/Report: Magnesium 2.4 1.6-2.6 mg/dL Complete Blood Count no Diff Reviewed date:01/13/2024 07:58:52 PM Interpretation: Performing Lab:[facility], [address] [place] [phone] Notes/Report: White Blood Count 11.9 4.8-10.8 X10*3/uL [...] ff Reviewed date:01/12/2024 07:43:31 AM Interpretation: Performing Lab:[address] [phone] Notes/Report: White Blood Count 11.0 4.8-10.8 X10*3/uL [...] Panel Reviewed date:01/12/2024 07:43:31 AM Interpretation: Performing Lab:[facility], [address] [place] [phone] Notes/Report: Sodium 139 135-145 mmol/L Potassium 3.9 [...] Phosphorus Reviewed date:01/12/2024 07:43:31 AM Interpretation: Performing Lab:[facility], [address] [place] [phone] Notes/Report: Phosphorus 2.8 2.7-4.5 mg/dL Magnesium Reviewed date:01/12/2024 07:43:31 AM Interpretation: Performing Lab:[facility], [address] [place] [phone] Notes/Report: Magnesium 2.3 1.6-2.6 mg/dL SLIDE REVIEW Reviewed date:01/12/2024 07:43:31 AM Interpretation: Performing Lab:[facility], [address] [place] [phone] Notes/Report: SLIDE REVIEW VERIFIED Venous Blood Gases - POC Reviewed date:01/12/2024 07:43:31 AM Interpretation: Performing Lab:[facility], [address] [place] [phone] Notes/Report: VBG pH 7.41 7.32-7.43 METER #: [id number] additional_comment: Jeovany burgess ctrbb henric VBG pCO2 47 METER #: [id number] additional_comment: Jeovany burgess ctrbb henric VBG pO2 34 METER #: [id number] additional_comment: Jeovany burgess ctrbb henric VBG Base Excess 5.9 METER #: [id number] additional_comment: Jeovany burgess ctrbb henric VBG HCO3 31 22-26 mmol/L METER #: [id number] additional_comment: Jeovany bugress ctrbb henric VBG O2 % Saturation 56.0 METER #: [id number] additional_comment: Jeovany burgess ctrbb henric Complete Blood Count Auto Di ff Reviewed date:01/12/2024 07:43:31 AM Interpretation: Performing Lab:[facility], [address] [place] [address], [place] [address] Notes/Report: White Blood Count 10.7 4.8-10.8 X10*3/uL [...] ff Reviewed date:01/13/2024 07:58:52 PM Interpretation: Performing Lab:[facility], [address] [place] [phone] Notes/Report: White Blood Count 11.2 4.8-10.8 X10*3/uL [...] Diff Reviewed date:01/13/2024 07:58:52 PM Interpretation: Performing Lab:[facility], [address] [place] [phone] Notes/Report: White Blood Count 12.6 4.8-10.8 X10*3/uL [...] ff Reviewed date:01/13/2024 07:58:52 PM Interpretation: Performing Lab:[facility], [address] [place] [phone] Notes/Report: White Blood Count 11.1 4.8-10.8 X10*3/uL [...] Panel Reviewed date:01/13/2024 07:58:52 PM Interpretation: Performing Lab:[facility], [address] [place] [phone] Notes/Report: Sodium 137 135-145 mmol/L Potassium 3.8 [...] Phosphorus Reviewed date:01/13/2024 07:58:52 PM Interpretation: Performing Lab:[facility], [address] [place] [phone] Notes/Report: Phosphorus 3.0 2.7-4.5 mg/dL Magnesium Reviewed date:01/13/2024 07:58:52 PM Interpretation: Performing Lab:[facility], [address] [place] [phone] Notes/Report: Magnesium 2.3 1.6-2.6 mg/dL Albumin Level Reviewed date:01/13/2024 07:58:52 PM Interpretation: Performing Lab:[facility], [address] [place] [phone] Notes/Report: Albumin Level 3.5 3.5-5.0 g/dL SLIDE REVIEW Reviewed date:01/13/2024 07:58:52 PM Interpretation: Performing Lab:[facility], [address] [place] [phone] Notes/Report: SLIDE REVIEW VERIFIED Venous Blood Gases - POC Reviewed date:01/13/2024 07:58:52 PM Interpretation: Performing Lab:[facility], [address] [place] [phone] Notes/Report: VBG pH 7.46 7.32-7.43 METER #: [id number] additional_comment: Jeovany aguilarbb henric VBG pCO2 37 METER #: [id number] additional_comment: Jeovany martinez ctrbb henric VBG pO2 55 METER #: [id number] additional_comment: Jeovany martinez ctrbb henric VBG Base Excess 3.2 METER #: [id number] additional_comment: Jeovany martinez ctrbb henric VBG HCO3 27 22-26 mmol/L METER #: [id number] additional_comment: Jeovany martinez ctrbb henric VBG O2 % Saturation 87.0 METER #: [id number] additional_comment: Jeovany martinez ctrbb henric Complete Blood Count Auto Di ff Reviewed date:01/13/2024 07:58:52 PM Interpretation: Performing Lab:[facility], [address] [place] [phone] Notes/Report: White Blood Count 12.6 4.8-10.8 X10*3/uL [...] ff Reviewed date:01/15/2024 06:02:02 AM Interpretation: Performing Lab:[facility], [address] [place] [phone] Notes/Report: White Blood Count 13.1 4.8-10.8 X10*3/uL [...] ff Reviewed date:01/15/2024 06:02:02 AM Interpretation: Performing Lab:[facility], [address] [place] [phone] Notes/Report: White Blood Count 12.1 4.8-10.8 X10*3/uL [...] Hematocrit Reviewed date:01/15/2024 06:02:02 AM Interpretation: Performing Lab:[facility], [address] [place] [phone] Notes/Report: Hemoglobin 7.9 14.0-18.0 g/dl Hematocrit 23.5 42.0-52.0 % Basic Metabolic Panel Reviewed date:01/15/2024 06:02:02 AM Interpretation: Performing Lab:[facility], [address] [place] [phone] Notes/Report: Sodium 136 135-145 mmol/L Potassium 3.8 [...] Phosphorus Reviewed date:01/15/2024 06:02:02 AM Interpretation: Performing Lab:[facility], [address] [place] [phone] Notes/Report: Phosphorus 2.8 2.7-4.5 mg/dL Magnesium Reviewed date:01/15/2024 06:02:02 AM Interpretation: Performing Lab:[facility], [address] [place] [phone] Notes/Report: Magnesium 2.2 1.6-2.6 mg/dL Albumin Level Reviewed date:01/15/2024 06:02:02 AM Interpretation: Performing Lab:[facility], [address] [place] [phone] Notes/Report: Albumin Level 3.4 3.5-5.0 g/dL SLIDE REVIEW Reviewed date:01/15/2024 06:02:02 AM Interpretation: Performing Lab:[facility], [address] [place] [phone] Notes/Report: SLIDE REVIEW VERIFIED Complete Blood Count no Diff Reviewed date:01/16/2024 08:51:12 AM Interpretation: Performing Lab:[facility], [address] [place] [phone] Notes/Report: White Blood Count 12.7 4.8-10.8 X10*3/uL [...] Diff Reviewed date:01/16/2024 08:51:12 AM Interpretation: Performing Lab:[facility], [address] [place] [phone] Notes/Report: White Blood Count 9.9 4.8-10.8 X10*3/uL [...] Panel Reviewed date:01/17/2024 05:05:01 AM Interpretation: Performing Lab:[facility], [address] [place] [phone] Notes/Report: Sodium 135 135-145 mmol/L Potassium 4.2 [...] Magnesium Reviewed date:01/17/2024 05:05:01 AM Interpretation: Performing Lab:[facility], [address] [place] [phone] Notes/Report: Magnesium 2.3 1.6-2.6 mg/dL Complete Blood Count Auto Di ff Reviewed date:01/18/2024 08:33:04 PM Interpretation: Performing Lab:[facility], [address] [place] [phone] Notes/Report: White Blood Count 12.0 4.8-10.8 X10*3/uL [...] te Reviewed date:01/18/2024 08:33:04 PM Interpretation: Performing Lab:[address] [address] Notes/Report: Erythrocyte Sedimentation Rate 92 0-15 MM/HR Patients with polycythemia and many hemoglobin abnormalities may have depressed sed rates whereas patients with anemia may have elevated sed rates. Prothrombin Time INR Reviewed date:01/18/2024 08:33:04 PM Interpretation: Performing Lab:[address] [address] Notes/Report: Prothrombin Time 13.4 10.9-12.4 SEC INTERNATIONAL [...] Panel Reviewed date:01/18/2024 08:33:04 PM Interpretation: Performing Lab:[facility], [address] [place] [phone] Notes/Report: Sodium 134 135-145 mmol/L Potassium 4.2 [...] Acid Reviewed date:01/18/2024 08:33:04 PM Interpretation: Performing Lab:[facility], [address] [place] [phone] Notes/Report: Lactic Acid 1.3 0.5-2.0 mmol/L C Reactive Protein Reviewed date:01/18/2024 08:33:04 PM Interpretation: Performing Lab:[facility], [address] [place] [phone] Notes/Report: C Reactive Protein 14.10 < or = 0.50 mg/dL Lipase Reviewed date:01/18/2024 08:33:04 PM Interpretation: Performing Lab:[facility], [address] [place] [phone] Notes/Report: Lipase 24 8-78 U/L SLIDE REVIEW Reviewed date:01/18/2024 08:33:04 PM Interpretation: Performing Lab:[facility], [address] [place] [phone] Notes/Report: SLIDE REVIEW VERIFIED Blood Culture (First) Reviewed date:01/24/2024 07:41:27 AM Interpretation: Performing Lab:[facility], [address] [place] [phone] Notes/Report: Blood Culture (First) No growth after 5 days. Blood Culture (Second) Reviewed date:01/24/2024 07:41:27 AM Interpretation: Performing Lab:[facility], [address] [place] [phone] Notes/Report: Blood Culture (Second) No growth after 5 days. US arterial duplex LE RT Reviewed date:01/21/2024 07:35:28 AM Interpretation: Performing Lab: Notes/Report: [address] [address] Ultrasound Report Signed with Addenda Patient: Zan Encinas MR#: [id number] : 1960 Acct:[id number] Age/Sex: 63 / M ADM Date: 01/18/24 Loc: .ED Attending Dr: Ordering Physician: Yuriy Dunbar Date of Service: 01/18/24 Procedure(s): US arterial duplex LE RT Accession Number(s): [id number] cc: Quinton Callahan MD; Yuriy Dunbar ADDENDUM ADDENDUM #1 Findings were communicated by telephone with Dr. Gerard by Dr. Zarate at 2034 hours. Electronically signed by: Placido Zarate MD 01/18/2024 08:41 PM [facility] Addendum Dictated By: Yuriy Zarate MD Addendum [...] by: Placido Zarate MD 01/18/2024 08:33 PM [facility] Dictated By: Yuriy Zarate MD Signed By: <Electronically signed by Yuriy Zarate MD in OV> 01/18/242032 DD/ 02 TD/TT: 01/18/241505 Route Sales Driver: BLANCA [place] [address] Ultrasound Report Signed with Addenda Patient: Zan Encinas MR#: [id number] : 1960 Acct:[id number] Age/Sex: 63 / M ADM Date: 01/18/24 Loc: .ED Attending Dr: Ordering Physician: Yuriy Dunbar Date of Service: 01/18/24 Procedure(s): US arterial duplex LE RT Accession Number(s): [id number] cc: Quinton Callahan MD; Yuriy Dunbar ADDENDUM [...] in OV> 01/18/242032 DD/ 02 TD/TT: 01/18/241505 Route Sales Driver: BLANCA XR foot RT min 3V Reviewed date:01/18/2024 08:33:04 PM Interpretation: Performing Lab: Notes/Report: [address] [address] XRay Report Signed Patient: Zan Encinas MR#: [id number] : 1960 Acct:[id number] Age/Sex: 63 / M ADM Date: 01/18/24 Loc: .ED Attending Dr: Ordering Physician: Yuriy Dunbar Date of Service: 01/18/24 Procedure(s): XR foot RT min 3V Accession Number(s): [id number] cc: Quinton Callahan MD; Yuriy Dunbar EXAMINATION: [...] 01/18/2024 04:19 PM [facility] Dictated By: Kaushal Cohen MD Signed By: <Electronically signed by Kaushal Cohen MD in OV> 01/18/24 1619 DD/ 1516 TD/TT: 01/18/24 1534 Route Sales Driver: MICHELA [place] [address] XRay Report Signed Patient: Zan Encinas MR#: [id number] : 1960 Acct:[id number] Age/Sex: 63 / M ADM Date: 01/18/24 Loc: .ED Attending Dr: Ordering Physician: Yuriy Dunbar Date of Service: 01/18/24 Procedure(s): XR chito t RT min 3V Accession Number(s): [id number] cc: Quinton Callahan MD; Yuriy Dunbar EXAMINATION: [...] 01/18/2024 04:19 PM [facility] Dictated By: Kaushal Cohen MD Signed By: <Electronically signed by Kaushal Cohen MD in OV> 01/18/24 1619 DD/ 1516 TD/TT: 01/18/24 1534 Route Sales Driver: MICHELA Complete Blood Count no Diff Reviewed date:02/04/2024 11:35:53 AM Interpretation: Performing Lab:[facility], [address] [place] [phone] Notes/Report: White Blood Count 11.5 4.8-10.8 X10*3/uL [...] INR Reviewed date:02/04/2024 11:35:53 AM Interpretation: Performing Lab:[facility], [address] [place] [phone] Notes/Report: Prothrombin Time 13.0 10.9-12.4 SEC INTERNATIONAL [...] Time Reviewed date:02/04/2024 11:35:53 AM Interpretation: Performing Lab:[facility], [address] [place] [phone] Notes/Report: Partial Thromboplastin Time 33.9 26.0-36.8 SEC For information regarding the monitoring of direct thrombin inhibitors, please refer to Pharmacy. Basic Metabolic Panel Reviewed date:02/04/2024 11:35:53 AM Interpretation: Performing Lab:[facility], [address] [place] [phone] Notes/Report: Sodium 138 135-145 mmol/L Potassium 4.4 [...] Pathology Reviewed date:02/08/2024 08:35:16 AM Interpretation: Performing Lab:[facility], [address] [place] [phone] Notes/Report: ---- Name: Toney Encinas Age/Sex: 63/M : 1960 [id number] [id number] Attend Dr: Bimal Knott MD Re02/04/24 Status : ADM IN Location: [facility] 364-1 Disch: ---- SPEC : [id number] RECD : 02/04/24-1214 STATUS: YUSUF MATHUR NUM: [id number] FRANTZ: 02/04/24-[address]: Bimal Knott MD [...] label ed ?right leg? is a right ducjm-kid-rsex amputation specimen which measures 34.0 cm in [...] No other erosions or ulcers are identified. [employer] Supervisor sections are submitted labeled as follows: A1 [...] Name: EncinasToney Age/Sex: 63/M : 1960 Unit#: [id number] Attend Dr: Bimal Knott MD Re02/04/24 Status : ADM IN Location: [facility] 364-1 Disch: ---- SPEC : [id number] RECD : 02/04/24 STATUS: YUSUF KEVAN NUM: [id number] FRANTZ: 02/04/24-8 [facility] DR: Bimal Knott MD ENTERED: 02/04/24- 16 SP TYPE: Surgical OTHR DR: Quinton Callahan MD ORDERED: Gross Micro L5 Copies To: Quinton Callahan MD [address] [place] [address], [place] [id number] Bimal Knott MD [facility] Services [address] [place] [address] ---- Signed (signature on file) [place] 02/06/24 1550 ---- END OF REPORT Type and Screen Reviewed date:02/04/2024 11:35:53 AM Interpretation: Performing Lab:[facility], [address] [place] [phone] Notes/Report: Blood Type OP Antibody Screen NEGATIVE Complete Blood Count no Diff Reviewed date:02/08/2024 08:35:16 AM Interpretation: Performing Lab:[facility], [address] [place] [phone] Notes/Report: White Blood Count 9.4 4.8-10.8 X10*3/uL [...] ff Reviewed date:02/08/2024 08:35:16 AM Interpretation: Performing Lab:[facility], [address] [place] [phone] Notes/Report: White Blood Count 11.2 4.8-10.8 X10*3/uL [...] Panel Reviewed date:02/08/2024 08:35:16 AM Interpretation: Performing Lab:[facility], [address] [place] [phone] Notes/Report: Sodium 137 135-145 mmol/L Potassium 3.9 [...] REVIEW Reviewed date:02/08/2024 08:35:16 AM Interpretation: Performing Lab:[address] [address] Notes/Report: SLIDE REVIEW VERIFIED Complete Blood Count no Diff Reviewed date:02/08/2024 08:35:16 AM Interpretation: Performing Lab:[address] [phone] Notes/Report: White Blood Count 9.3 4.8-10.8 X10*3/uL [...] Panel Reviewed date:02/08/2024 08:35:16 AM Interpretation: Performing Lab:[address] [phone] Notes/Report: Sodium 136 135-145 mmol/L Potassium 3.8 [...] Level Reviewed date:02/08/2024 08:35:16 AM Interpretation: Performing Lab:[facility], [address] [place] [phone] Notes/Report: Albumin Level 2.7 3.5-5.0 g/dL Complete Blood Count no Diff Reviewed date:02/08/2024 08:35:16 AM Interpretation: Performing Lab:[facility], [address] [place] [phone] Notes/Report: White Blood Count 9.0 4.8-10.8 X10*3/uL [...] Gel Reviewed date:02/08/2024 08:35:16 AM Interpretation: Performing Lab:[facility], [address] [place] [phone] Notes/Report: Hold Green Gel See Note Specimen held untested for 24 hours; Call to request Chemistry testing. Complete Blood Count Auto Di ff Reviewed date:05/27/2024 08:42:02 AM Interpretation: Performing Lab:[facility], [address] [place] [phone] Notes/Report: White Blood Count 10.9 4.8-10.8 X10*3/uL [...] te Reviewed date:05/27/2024 08:42:02 AM Interpretation: Performing Lab:[address] [address] Notes/Report: Erythrocyte Sedimentation Rate 10 0-15 MM/HR Patients with polycythemia and many hemoglobin abnormalities may have depressed sed rates whereas patients with anemia may have elevated sed rates. Comprehensive Met. Panel Reviewed date:05/27/2024 08:42:02 AM Interpretation: Performing Lab:[address] [address] Notes/Report: Sodium 138 135-145 mmol/L Potassium 4.3 [...] Acid Reviewed date:05/27/2024 08:42:02 AM Interpretation: Performing Lab:[address] [address] Notes/Report: Lactic Acid 1.4 0.5-2.0 mmol/L C Reactive Protein Reviewed date:05/27/2024 08:42:02 AM Interpretation: Performing Lab:[facility], [address] [place] [phone] Notes/Report: C Reactive Protein 1.01 < or = 0.50 mg/dL Blood Culture (First) Reviewed date:06/07/2024 04:51:50 AM Interpretation: Performing Lab:[facility], [address] [place] [phone] Notes/Report: Blood Culture (First) No growth after 5 days. Blood Culture (Second) Reviewed date:06/07/2024 04:51:50 AM Interpretation: Performing Lab:[facility], [address] [place] [phone] Notes/Report: Blood Culture (Second) No growth after 5 days. XR knee RT 4V Reviewed date:05/27/2024 08:42:02 AM Interpretation: Performing Lab: Notes/Report: [address] [place] [address] XRay Report Signed Patient: Zan Encinas MR#: [id number] : 1960 Acct:[id number] Age/Sex: 64 / M ADM Date: 05/26/24 Loc: .ED Attending Dr: Ordering Physician: Gt Cruz Date of Service: 05/26/24 Procedure(s): XR knee RT 4V Accession Number(s): [id number] cc: Gt Cruz; Quinton Callahan MD EXAMINATION: XR KNEE, RIGHT CLINICAL INFORMATION: Right stump erythema/pus discharge COMPARISON: 10/01/2023. TECHNIQUE: Four views of the right knee. FINDINGS: There is mild generalized osteopenia. There has been a qvcbq-pva-gjso amputation. There are no permeative changes involving [...] 05/26/24 1532 DD/ 1452 TD/TT: 05/26/24 1510 Route Sales Driver: [address] [address] XRay Report Signed Patient: Zan Encinas MR#: [id number] : 1960 Acct:[id number] Age/Sex: 64 / M ADM Date: 05/26/24 Loc: .ED Attending Dr: Ordering Physician: Gt Cruz Date of Service: 05/26/24 Procedure(s): XR kne e RT 4V Accession Number(s): [id number] cc: tG Cruz; Quinton Callahan MD EXAMINATION: XR KNEE, RIGHT CLINICAL INFORMATION: Right stump erythema /pus discharge COMPARISON: 10/01/2023. TECHNIQUE: Four views of the ri ght knee. FINDINGS: There is mild generalized osteopenia. There has been a ubjsw-dvm-hdld amputation. There are no permeative changes involving [...] 05/26/24 1532 DD/ 1452 TD/TT: 05/26/24 1510 Route Sales Driver: Complete Blood Count Auto Di ff Reviewed date:05/27/2024 08:42:02 AM Interpretation: Performing Lab:[address] [address] Notes/Report: White Blood Count 9.2 4.8-10.8 X10*3/uL [...] Panel Reviewed date:05/27/2024 08:42:02 AM Interpretation: Performing Lab:[facility], [address] [place] [place] [phone] Notes/Report: Sodium 140 135-145 mmol/L Potassium 3.8 [...] Creatinine Reviewed date:05/27/2024 08:42:02 AM Interpretation: Performing Lab:[facility], [address] [place] [place] [phone] Notes/Report: Creatinine 0.84 0.5-1.4 mg/dL Creatinine Clr [...] Random Reviewed date:05/28/2024 04:55:44 AM Interpretation: Performing Lab:[facility], [address] [place] [place] [phone] Notes/Report: Vancomycin Random 13.2 15-20 mcg/mL MR knee RT wo/w con Reviewed date:05/28/2024 04:55:44 AM Interpretation: Performing Lab: Notes/Report: [address] [place] [address] Magnetic Resonance Report Signed Patient: Zan Encinas MR#: [id number] : 1960 Acct:[id number] Age/Sex: 64 / M ADM Date: 05/26/24 Loc: .S3 376-[address]: Luciano Mari MD Ordering Physician: Keith Menendez MD Date of Service: 05/27/24 Procedure(s): MR knee RT wo/w con Accession Number(s): [id number] cc: Quinton Callahan MD; Keith Menendez MD [...] 05/27/24 1626 DD/ 1527 TD/TT: 05/27/24 1549 Route Sales Driver: [place] [address] Magnetic Resonance Report Signed Patient: Zan Encinas MR#: [id number] : 1960 Acct:[id number] Age/Sex: 64 / M ADM Date: 05/26/24 Loc: .S3 376-[address]: Alfredo Mari MD Ordering Physician: Keith Menendez MD Date of Service: 05/27/24 Procedure(s): MR green e RT wo/w con Accession Number(s): [id number] cc: Quinton Callahan MD; Keith Menendez MD [...] 05/27/24 1626 DD/ 1527 TD/TT: 05/27/24 1549 Route Sales Driver: Creatinine Reviewed date:05/28/2024 02:19:09 PM Interpretation: Performing Lab:[facility], [address] [place] [id number] Notes/Report: Creatinine 0.81 0.5-1.4 mg/dL Creatinine Clr [...] Random Reviewed date:05/30/2024 07:30:54 PM Interpretation: Performing Lab:[address] [id number] Notes/Report: Vancomycin Random 13.4 15-20 mcg/mL Hold Lav - Possible Hematolo gy Reviewed date:05/30/2024 07:30:54 PM Interpretation: Performing Lab:[address] [id number] Notes/Report: Hold Lav - Possible Hematology SEE NOTE Specimen will be held untested for 8 hours. Call Hematology if testing is desired. Creatinine Reviewed date:05/30/2024 07:30:54 PM Interpretation: Performing Lab:[facility], [address] [place] [phone] Notes/Report: Creatinine 0.79 0.5-1.4 mg/dL Creatinine Clr [...] ff Reviewed date:07/01/2024 10:06:14 AM Interpretation: Performing Lab:[facility], [address] [place] [phone] Notes/Report: White Blood Count 8.9 4.8-10.8 X10*3/uL [...] Creatinine Reviewed date:07/01/2024 10:06:14 AM Interpretation: Performing Lab:[address] [address] Notes/Report: Creatinine 1.10 0.5-1.4 mg/dL Estimated Glomerular Filt Rate > 60 Chronic Kidney Disease: Estimated GFR < 60 mL/min/1.73m2 Severe Kidney Disease: Estimated GFR < 15 mL/min/1.73m2 Vancomycin Trough Reviewed date:07/01/2024 10:06:14 AM Interpretation: Performing Lab:[facility], [address] [place] [phone] Notes/Report: Vancomycin Trough 20.4 10.0-20.0 mcg/mL Complete Blood Count no Diff Reviewed date:10/13/2024 03:48:51 PM Interpretation: Performing Lab:[facility], [address] [place] [phone] Notes/Report: White Blood Count 8.2 4.8-10.8 X10*3/uL [...] Panel Reviewed date:10/13/2024 03:48:51 PM Interpretation: Performing Lab:[address] [address] Notes/Report: Sodium 142 135-145 mmol/L Potassium 4.5 [...] stain Reviewed date:10/21/2024 05:29:45 AM Interpretation: Performing Lab:[address] [address] Notes/Report: BONE RIGHT TIBIA BONE RIGHT TIBIA Gram stain Gram stain results: Gram stain No polys Gram stain 4+ red blood cells Gram stain No organisms seen Routine Culture Reviewed date:10/13/2024 03:48:51 PM Interpretation: Performing Lab:[address] [address] Notes/Report: RIGHT BKA DEEP CULTURE Routine Culture Report - external Routine Culture 1+ Mixed skin rocio O:STAAUR Staphylococcus aureus Routine Culture Quant Org ID Routine Culture 1+ Clindamycin <=0.25 Erythromycin <=0.25 Levofloxacin 0.25 Oxacillin 0.5 Penicillin-G >=0.5 Tetracycline <=1 Trimethoprim/Sulfamethox azole <=10 Anaerobic Culture Reviewed date:10/21/2024 05:29:45 AM Interpretation: Performing Lab:[facility], [address] [place] [phone] Notes/Report: BONE RIGHT TIBIA BONE RIGHT TIBIA Anaerobic Culture Report Anaerobic Culture No anaerobes isolated. Gram stain Reviewed date:10/13/2024 03:48:51 PM Interpretation: Performing Lab:[facility], [address] [place] [phone] Notes/Report: RIGHT BKA DEEP CULTURE Gram stain Gram stain results: Gram stain 1+ polys Gram stain 4+ red blood cells Gram stain No organisms seen Routine Culture Reviewed date:10/21/2024 05:29:45 AM Interpretation: Performing Lab:[facility], [address] [place] [phone] Notes/Report: Clindamycin <=0.25 Erythromycin <=0.25 Levofloxacin 0.25 Oxacillin 0.5 Penicillin-G >=0.5 Tetracycline <=1 Trimethoprim/Sulfamethox azole <=10 Clindamycin >=8 Erythromycin >=8 Levofloxacin <=0.12 Oxacillin >=4 Penicillin-G >=0.5 Tetracycline >=16 Trimethoprim/Sulfamethox azole 160 Vancomycin 1 Complete Blood Count Auto Di ff Reviewed date:10/21/2024 05:29:45 AM Interpretation: Performing Lab:[facility], [address] [place] [phone] Notes/Report: White Blood Count 8.1 4.8-10.8 X10*3/uL [...] te Reviewed date:10/21/2024 05:29:45 AM Interpretation: Performing Lab:[address] [address] Notes/Report: Erythrocyte Sedimentation Rate 5 0-15 MM/HR Patients with polycythemia and many hemoglobin abnormalities may have depressed sed rates whereas patients with anemia may have elevated sed rates. Comprehensive Met. Panel Reviewed date:10/21/2024 05:29:45 AM Interpretation: Performing Lab:[address] [address] Notes/Report: Sodium 139 135-145 mmol/L Potassium 4.3 [...] Protein Reviewed date:10/21/2024 05:29:45 AM Interpretation: Performing Lab:[address] [phone] Notes/Report: C Reactive Protein 0.52 < or = 0.50 mg/dL Gram stain Reviewed date:10/24/2024 02:48:30 PM Interpretation: Performing Lab:[facility], [address] [place] [phone] Notes/Report: R BKA surgical site Gram stain Gram stain results: Gram stain 3+ polys Gram stain 2+ epithelial cells Gram stain 3+ Gram-negative rods Gram stain 1+ Gram-positive cocci Routine Culture Reviewed date:10/24/2024 02:48:30 PM Interpretation: Performing Lab:[facility], [address] [place] [phone] Notes/Report: R BKA surgical site O:PSEAER Pseudomonas aeruginosa Routine Culture Quant Org ID Routine Culture 3+ O:CORSPE Corynebacterium species Routine Culture No susc Routine Culture Standard methods for susceptibility testing not established. Routine Culture Quant Org ID Routine Culture 2+ Cefepime 2 Ciprofloxacin 0.12 Gentamicin <=1 Meropenem 0.5 Piperacillin/Tazobactam <=4 Blood Culture (First) Reviewed date:11/07/2024 05:47:41 AM Interpretation: Performing Lab:[facility], [address] [place] [phone] Notes/Report: Blood Culture (First) No growth after 5 days. Blood Culture (Second) Reviewed date:11/07/2024 05:47:41 AM Interpretation: Performing Lab:[facility], [address] [place] [address] Notes/Report: Blood Culture (Second) No growth after 5 days. XR knee RT 4V Reviewed date:10/21/2024 05:29:45 AM Interpretation: Performing Lab: Notes/Report: [facility] [address] [place] [address] XRay Report Signed Patient: Zan Encinas MR#: [id number] : 1960 Acct:[id number] Age/Sex: 64 / M ADM Date: 10/20/24 Loc: HO.ED Attending Dr: Ordering Physician: Pooja Tapia Date of Service: 10/20/24 Procedure(s): XR knee RT 4V Accession Number(s): [id number] cc: Quinton Callahan MD; Pooja Tapia EXAMINATION: [...] 10/20/24 1311 DD/ 1156 TD/TT: 10/20/24 1300 Route Sales Driver: [address] [address] XRay Report Signed Patient: Zan Encinas MR#: [id number] : 1960 Acct:[id number] Age/Sex: 64 / M ADM Date: 10/20/24 Loc: HO.ED Attending Dr: Ordering Physician: Pooja Tapia Date of Service: 10/20/24 Procedure(s): XR kne e RT 4V Accession Number(s): [id number] cc: Quinton Callahan MD; Pooja Tapia EXAMINATION: [...] 10/20/24 1311 DD/ 1156 TD/TT: 10/20/24 1300 Route Sales Driver: Complete Blood Count no Diff Reviewed date:10/24/2024 02:48:30 PM Interpretation: Performing Lab:[facility], [address] [place] [address] Notes/Report: White Blood Count 6.8 4.8-10.8 X10*3/uL [...] Panel Reviewed date:10/24/2024 02:48:30 PM Interpretation: Performing Lab:[address] [address] Notes/Report: Sodium 142 135-145 mmol/L Potassium 4.3 [...] T4 Reviewed date:10/24/2024 02:48:30 PM Interpretation: Performing Lab:[address] [address] Notes/Report: TSH reflex Free T4 1.34 0.32-4.0 uIU/mL Vancomycin Random Reviewed date:10/24/2024 02:48:30 PM Interpretation: Performing Lab:[facility], [address] [place] [address] Notes/Report: Vancomycin Random 12.7 15-20 mcg/mL Hold Lav - Possible Hematolo gy Reviewed date:10/24/2024 02:48:30 PM Interpretation: Performing Lab:[facility], [address] [place] [address] Notes/Report: Hold Lav - Possible Hematology SEE NOTE Specimen will be held untested for 8 hours. Call Hematology if testing is desired. Creatinine Reviewed date:10/24/2024 02:48:30 PM Interpretation: Performing Lab:[facility], [address] [place] [phone] Notes/Report: Creatinine 1.09 0.5-1.4 mg/dL Creatinine Clr [...] Random Reviewed date:10/24/2024 02:48:30 PM Interpretation: Performing Lab:[facility], [address] [place] [phone] Notes/Report: Vancomycin Random 12.4 15-20 mcg/mL Hold Lav - Possible Hematolo gy Reviewed date:10/24/2024 02:48:30 PM Interpretation: Performing Lab:[facility], [address] [place] [address] Notes/Report: Hold Lav - Possible Hematology SEE NOTE Specimen will be held untested for 8 hours. Call Hematology if testing is desired. Creatinine Reviewed date:10/24/2024 02:48:30 PM Interpretation: Performing Lab:[facility], [address] [place] [address] Notes/Report: Creatinine 1.14 0.5-1.4 mg/dL Creatinine Clr [...] Random Reviewed date:10/24/2024 02:48:30 PM Interpretation: Performing Lab:[facility], [address] [place] [phone] Notes/Report: Vancomycin Random 18.9 15-20 mcg/mL US renal BI Reviewed date:12/06/2024 06:19:52 AM Interpretation: Performing Lab: Notes/Report: [address] [address] Ultrasound Report Signed Patient: Zan Encinas MR#: [id number] : 1960 Acct:[id number] Age/Sex: 64 / M ADM Date: 12/04/24 Loc: HO.US Attending Dr: Chloe PACHECO Ordering Physician: Chloe Flores Date of Service: 12/04/24 Procedure(s): US renal BI Accession Number(s): [id number] cc: Quinton Callahan MD; Chloe Flores Reason [...] in OV> 12/05/241346 DD/ 45 TD/TT: 12/05/241345 Route Sales Driver: [address] [address] Ultrasound Report Signed Patient: Zan Encinas MR#: [id number] : 1960 Acct:[id number] Age/Sex: 64 / M ADM Date: 12/04/24 Loc: HO.US Attending Dr: Chloe mcqueen [facility] Ordering Physician: [facility] Date of Service: 12/04/24 Procedure(s): US hubert Proctor Accession Number(s): [id number] cc: Quinton Callahan MD; Chloe Flores [facility] Reason for Exam: N28 .1 - Cyst [...] document has be en electronically signed by: iPneda Benito MD on 12/05/2024 13:46:59 Dictated By: Pineda Benito MD Signed By: <Electronically signed by Pineda Benito MD in OV> 12/05/24 134 DD/ 45 TD/TT: 12/05/241345 Route Sales Driver: Reason For Referral Reason Evaluate and Treat Irregular Heart Rate History of A-Fib Diagnosis 1 Irregular heart rate (I49.9) Diagnosis 2 Left bundle branch b lock (I44.7) Diagnosis 3 History of atrial fi brillation (Z86.79) Referral Organization Quinton Callahan III, MD Referring Provider First Name Quinton Referring Provider Last Name Callahan Referring Provider Speciality Internal edicine Referred Provider [facility] er, Cardiology Referred Provider Specialty Cardiology [...] in a message to Dr. Ferrer's medical oncology physician to ask if the patient can be seen with the nurse practitioner. Stated they will contact the patient directly. Referral Priority Routine Referral Appointment Date 11/19/2024 Reason left renal hematoma evaluate and treatment Diagnosis 1 Hematoma of left kid luz, initial encounter (S37.012A) Referral Organization Quinton Callahan III, MD Referring Provider First Name Quinton Referring Provider Last Name Callahan Referring Provider [facility] edicine Referred Provider Chloe Flores Referred Provider Specialty Urology General Notes Lisa Jolie VALE 09/30 03:24:56 PM >I called Dr Flores office made patient an appt for 12/03/2024 at 2:45pm pt is established with Dr Flores so no records were sent . [facility] appt information was mailed to patient [...] Specialty Gastroentero logy General Notes S Jolie [facility] PRACT[facility]ER 09/30 03:23:14 PM >Called Dr Campos office [...] Problem Status W/U Status Risk Notes Problem 543697279 Overweight (E66.3) Active confirmed His body mass index is 29. We discussed diet and nutrition. I recommended aggressive weight loss and sodium restriction. Problem 200672787 Mixed hyperlipidemia (E78.2) Active confirmed A comprehensive laboratory database with a fasting lipid profile will be obtained. He was continued on his currrent meddications. Problem 45526528 Chronic obstructive pulmonary disease, unspecified COPD type (J44.9) Active confirmed He has resumed smoking 5 cigarettes per day. He was counseled about this and made aware of the smoking cessation programs in the area. Problem 52913144 Tobacco dependence (F17.200) Active confirmed I have counseled him about smoking cessation and offered to refer him to smoking cessation programs in the community. He said he would consider this and try to cut down. Problem Left bundle branch block (39286846) Left bundle branch block (I44.7) Active confirmed The integrated program teacher's interpretation of the perfusion test was that the defect in the septum may be due to the bundle branch block. I will discuss this with cardiology. Problem 27722310 Hiatal hernia (K44.9) Active confirmed The symptoms of his esophageal reflux and hiatal hernia well controlled with current medications. No change in his regimen as needed. Problem 280816826 Peripheral arterial disease (I73.9) Active confirmed He is seeing the vascular surgeon rita 2 weeks. 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 The plan is to fit him for a prosthesis. He denies any ulcers or claudication in the left leg. Problem Hoarseness (08170767) Hoarseness (R49.0) Active confirmed He will be referred to ENT for indirect laryngoscopy. Problem 8747242 Umbilical hernia without obstruction and without gangrene (K42.9) Active confirmed This is asymptomatic and requires no treatment at this time. Problem 619227184 Benign prostatic hyperplasia with lower urinary tract symptoms (N40.1) Active confirmed The tamsulosin was continued today. He will notify me if his symptoms worsen. He has had no retention. He has symptoms of prostatism. Problem 701866230 Acute right-sided low back pain with right-sided sciatica (M54.41) Active confirmed His back pain continues and I have increased the gabapentin. Problem Cardiac arrhythmia (026384523) Irregular heart rate (I49.9) Active confirmed These episodes had night have increased lately. He has had no chest pain. He has had no increase in his chronic dyspnea. Holter monitor has been ordered. He is not anticoagulated. Problem 193825826 Palmer's esophagus determined by endoscopy (K22.70) Active confirmed He is due for an endoscopy and was referred back to his gastroenterolog ist, Dr. Quitnon Campos. 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 Problem 70484550770084976 Carpal tunnel syndrome on both sides (G56.03) Active confirmed He has a history of carpal tunnel syndrome treated by Dr. Raphael. He is currently asymptomatic. 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 Vascular has referred him to infectious disease for an opinion. The patient I today discussed the possibility of an ikwyb-dpl-igdh amputation and what it would be like [...] Provider Diagnosis Quinton Callahan III, MD [address] [place] [address] [place] [address] 12/28/2023 Quinton Callahan Peripheral arterial disease I73.9 ; Chronic obstructive pulmonary disease, unspecified COPD type J44.9 ; Benign prostatic hyperplasia with lower urinary tract symptoms N40.1 ; Palmer's esophagus determined by endoscopy K22.70 ; Hiatal hernia K44.9 ; Overweight E66.3 ; Tobacco dependence F17.200 and Mixed hyperlipidemia E78.2 Quinton Callahan III, MD [address] [place] [address] [place] [address] 06/12/2024 Quinton Callahan Peripheral arterial disease I73.9 ; Benign prostatic hyperplasia with lower urinary tract symptoms N40.1 ; Pamler's esophagus determined by endoscopy K22.70 ; Chronic obstructive pulmonary disease, unspecified COPD type J44.9 ; Overweight E66.3 ; Tobacco dependence F17.200 and Mixed hyperlipidemia E78.2 Quinton Callahan III, MD [address] [place] [address] [place] [address] 07/10/2024 Quinton Callahan Peripheral arterial disease I73.9 [...] Tobacco dependence F17.200 Quinton Callahan III, MD [address] [place] [address] [place] [address] 09/09/2024 Quinton Callahan Irregular heart rate I49.9 [...] draining sinus M86.461 Quinton Callahan III, MD [address] [place] [address] [place] [address] 09/30/2024 Quinton Callahan Chronic osteomyeliti s of right tibia with draining sinus M86.461 ; Overweight E66.3 ; Umbilical hernia without obstruction and without gangrene K42.9 ; Peripheral arterial disease I73.9 ; Chronic obstructive pulmonary disease, unspecified COPD type J44.9 ; Splenic vein thrombosis I82.890 ; Palmer's esophagus determined by endoscopy K22.70 and Tobacco dependence F17.200 Quinton Callahan III, MD [address] [place] [address] [place] [address] 10/29/2024 Quinton Callahan Chronic osteomyeliti s of right tibia with draining sinus M86.461 ; Tobacco dependence F17.200 ; Peripheral arterial disease I73.9 ; Palmer's esophagus determined by endoscopy K22.70 ; Chronic obstructive pulmonary disease, unspecified COPD type J44.9 ; Hiatal hernia K44.9 and Mixed hyperlipidemia E78.2 Quinton Callahan III, MD [address] [place] [address] [place] [address] 12/02/2024 Quinton Callahan Chronic osteomyeliti s of right tibia with draining sinus M86.461 ; Chronic obstructive pulmonary disease, unspecified COPD type J44.9 ; Palmer's esophagus determined by endoscopy K22.70 ; Benign prostatic hyperplasia with lower urinary tract symptoms N40.1 ; Splenic vein thrombosis I82.890 ; Hiatal hernia K44.9 ; Tobacco dependence F17.200 and Overweight E66.3 Quinton Callahan III, MD [address] [place] [address] [place] [address] 12/18/2023 Quinton Callahan III, MD [address] [place] [address] [place] [address] 12/21/2023 Quinton Callahan III, MD [address] [place] [address] [place] [address] 12/21/2023 Quinton Callahan III, MD [address] [place] [address] [place] [address] 02/12/2024 Quinton Callahan III, MD [address] [place] [address] [place] [address] 03/04/2024 Quinton Callahan III, MD [address] [place] [address] [place] [address] 05/02/2024 Quinton Callahan III, MD [address] [place] [address] [place] [address] 05/02/2024 Quinton Callahan Peripheral arterial disease I73.[address] [id number] 06/02/2024 Quinton Callahan III, MD [address] [place] [address] [place] [address] 07/23/2024 Quinton Callahan III, MD [address] [place] [address] [place] [address] 08/27/2024 Quinton Callahan III, MD [address] [place] [address] [place] [address] 09/04/2024 Quinton Callahan Assessments Encounter Date Diagnosis [...] I today discussed the possibility of an mnkbx-lnn-qsdc amputation and what it would be like [...] endoscopy and was referred back to his bilingual secretary, Dr. Quinton Campos. 07/10/2024 Benign prostatic hyperplasia [...] endoscopy and was referred back to his bilingual secretary, Dr. Quinton Campos. 12/28/2023 Palmer's esophagus determined by endoscopy (ICD-10 - K22.70) He is due for an endoscopy and was referred back to his bilingual secretary, Dr. Quinton Campos. 06/12/2024 Chronic obstructive pulmonary disease, unspecified COPD type (ICD-10 - J44.9) He has resumed smoking 5 cigarettes per day. He was counseled about this and made aware of the smoking cessation programs in the area. 07/10/2024 Palmer's esophagus determined by endoscopy (ICD-10 - K22.70) He is due for an endoscopy and was referred back to his bilingual secretary, Dr. Quinton Campos. 09/09/2024 Palmer's esophagus determined by endoscopy (ICD-10 - K22.70) He is due for an endoscopy and was referred back to his bilingual secretary, Dr. Quinton Campos. 09/30/2024 Peripheral arterial disease [...] endoscopy and was referred back to his bilingual secretary, Dr. Quinton Campos. 12/02/2024 Benign prostatic hyperplasia [...] endoscopy and was referred back to his bilingual secretary, Dr. Quinton Campos. 10/29/2024 Mixed hyperlipidemia (ICD-10 [...] Name:Quinton Callahan , 01/06/2025 02:30:00 PM, [address] [facility] [address], [place], [address], Provider Name:Quinton Callahan , 12/08/2025 02:30:00 PM, [address] [facility] [address], [place], [address], Insurance Providers Payer Name Payer Address Payer Phone Subscriber Number Group Number Insured Name Patient Relationship to Insured Coverage Start Date Coverage End Date [employer] [address] [place] [address] [phone] [id number] Zan Olivo Self - patient is the insured 4 MEDICARE NGS [address] [place] [address] [id number] Zan Olivo Self - patient is the [...] right leg Surgical History Surgery Date(Month/Year) Right ujsyg-hyw-jxqj amputation 4 arteriogram right lower extremity 05/2019 upper endoscopy, [facility], Dr. Quinton Campos, Palmer's esophagus 2014 upper endoscopy and colonosc opy, [facility], Dr. 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
--- OUTSIDE RECORDS SUMMARY | 2024-12-12 17:57 | XMS_ITS | Encounter Summary ---
Author Organization [facility] Address [address] [place] [address] [place] [address] Phone Care Team Providers Care Distribution Center Administrator Name Role Phone Quinton Callahan MD Primary Care Provider +1- [phone] Encounter Details Date Type Department Care Team (Late st Contact Info) Description 11/28/2023 Procedure Pass [facility] [address] [place] [address] Social History Tobacco Use Types Packs/Day Years [...] on filedocumented in this encounter Care Teams Distribution Center Administrator Relationship Specialty Start Date End Date Quinton Callahan MD [address] [place] [address] [place] [address] PCP - General Medical Oncology 11/23/23 documented as of this encounter Additional Source Comments The information contained in this document represents components of the legal health record. It is not the complete legal health record.[facility]
--- OUTSIDE RECORDS SUMMARY | 2024-12-12 17:57 | XMS_ITS | Encounter Summary ---
Author Organization [facility] Address [address] [place] [address] [place] [address] Phone Care Team Providers Care Dance Choreographer Name Role Phone Quinton Callahan MD Primary Care Provider +1- [phone] Encounter Details Date Type Department Care Team (Late st Contact Info) Description 11/28/2023 Procedure [facility] [address] [place] [address] Social History Tobacco Use Types Packs/Day Years [...] on filedocumented in this encounter Care Teams Dance Choreographer Relationship Specialty Start Date End Date Quinton Callahan MD [address] [place] [address] [place] [address] PCP - General Medical Oncology 11/23/23 documented as of this encounter Additional Source Comments The information contained in this document represents components of the legal health record. It is not the complete legal health record.[facility]
--- OUTSIDE RECORDS SUMMARY | 2024-12-12 17:57 | XMS_ITS | Encounter Summary ---
Author Organization [facility] Address [address] [place] [address] [place] [address] Phone Care Team Providers Care Truck Shop Mechanic Name Role Phone Quinton Callahan MD Primary Care Provider +1- [phone] Encounter Details Date Type Department Care Team (Late st Contact Info) Description 11/28/2023 Procedure Pass [facility] [address] [place] [address] Social History Tobacco Use Types Packs/Day Years [...] on filedocumented in this encounter Care Teams Truck Shop Mechanic Relationship Specialty Start Date End Date Quinton Callahan MD [address] [place] [address] [place] [address] PCP - General Medical Oncology 11/23/23 documented as of this encounter Additional Source Comments The information contained in this document represents components of the legal health record. It is not the complete legal health record.[facility]
--- OUTSIDE RECORDS SUMMARY | 2024-12-12 17:57 | XMS_ITS | Encounter Summary ---
Author Organization [facility] Address [address] [place] [address] [place] [address] Phone Care Team Providers Care Pie Filler Name Role Phone Quinton Callahan MD Primary Care Provider +1- [phone] Encounter Details Date Type Department Care Team (Late st Contact Info) Description 11/28/2023 Procedure Pass [facility] [address] [place] [address] Social History Tobacco Use Types Packs/Day Years [...] on filedocumented in this encounter Care Teams Pie Filler Relationship Specialty Start Date End Date Quinton Callahan MD [address] [place] [address] [place] [address] PCP - General Medical Oncology 11/23/23 documented as of this encounter Additional Source Comments The information contained in this document represents components of the legal health record. It is not the complete legal health record.[facility]
--- OUTSIDE RECORDS SUMMARY | 2024-12-12 17:58 | XMS_ITS | Clinical Summary ---
Author Organization [facility] Address [address] [place] [address] Phone Care Team Providers Care Senior Physical Therapist Name Role Phone Quinton Callahan MD Primary Care Provider +1- [phone] Allergies No known active allergies Medications oxyCODONE-aceta [...] this topic Medical Devices Implanted Type Area Metal Bonding Helper Device Identifier Shelf Expiration Date Model / Serial / Lot Graft Vascular 6.0mmx60 70cm Propaten Heparin Carmeda Bioactive Surface Thin Wall Removable Ring Stretch - [id number] Implanted:Qty: 1 on 12/02/2023 by Percy Segundo MD at [facility] STANDARD Right: Vein [employer] [id number] 08/13/2026 [id number] / [id number] / Metal Clip Celd Left Groin 10/2023 Stent Right Femoral Artery Patch Pericardium 2cm 9cm Decellularized Bovine [employer] - [id number] Implanted:Qty: 1 on 12/02/2023 by Percy Segundo MD at [facility] Right: Vein [employer] [id number] 03/24/2025 [id number] / / [id number] Procedures Procedure Name Priority Date/Time Associated Diagnosis Comments BASIC METABOLIC PANEL Routine 02/18/2024 8:01 AM EST Aftercare for amputation stump LIPID PANEL Routine 11/28/2023 1:21 AM EDT from Last 3 Months or Most Recently Relevant to Health Maintenance Results * (ABNORMAL) Basic metabolic panel (02/18/2024 8:01 AM EST) SODIUM 137 133 - 146 mmol/L [facility] CHLORIDE 102 96 - 108 mmol/L [facility] POTASSIUM 4.4 3.3 - 5.1 mmol/L [facility] CO2 25 21 - 35 mmol/L [facility] BUN 13 6 - 19 mg/dL [facility] CREATININE 0.70 0.5 - 1.5 mg/dL [facility] GLUCOSE 101(H) 70 - 99 mg/dL [facility] CALCIUM 9.7 8.4 - 10.3 mg/dL [facility] EGFR 102 >59 mL/min/1.7 3m2 [facility] Comment:Estimated glomerular filtration rate calculated using the CKD-EPI refit equation. ANION GAP 14 10 - 20 mmol/L [facility] Blood 02/18/2024 8:01 AM EST 02/18/2024 10:00 AM EST us Garrett Fletcher MD LAB BLOOD ORDERABLES Final Resul t [facility] [address] [place] [address] * Lipid panel (11/28/2023 1:21 AM EDT) CHOLESTEROL 125 <200 mg/dL [facility] TRIGLYCERIDES 60 35 - 150 mg/dL [facility] HDL 60 40 - 80 mg/dL [facility] CALCULATED LDL 53 50 - 129 mg/dL [facility] VLDL 12 <31 mg/dL [facility] CARDIAC RISK RATIO 2.1 0.0 - 4.0 [facility] Blood 11/28/2023 1:21 AM EDT 11/28/2023 1:35 AM EDT Ayla Owens PA-C LAB BLOOD ORDERABLES Clementina rossi Result [facility] [address] [place] [id number] from Last 3 Months or Most Recently Relevant to Health Maintenance Insurance [employer] PPO MEDICARE REPLACEMENT MEDICARE PART A & B AETNA [facility] MEDICARE REPLACEMENT MEDICARE PART A & B [employer] O MEDICARE REPLACEMENT MEDICARE PART A & B [employer] PPO MEDICARE REPLACEMENT MEDICARE PART A & B [facility] MEDICARE REPLACEMENT MEDICARE PART A & B [facility] MEDICARE REPLACEMENT MEDICARE PART A & B Advance Directives For more information, please contact: [phone] (9AM - 5PM [facility], Sunday-Sunday) * Full Code (Latest Code Status on File) Date Activated Date Inactivated Comments 11/27/2023 4:16 PM Question Answer Comments Code Status Confirmed With: Patient Care Teams Senior Physical Therapist Relationship Specialty Start Date End Date Qiunton Callahan MD [address] [place] [address] [place] [address] PCP - General Medical Oncology 11/23/23 Additional Source Comments The information contained in this document represents components of the legal health record. It is not the complete legal health record.[facility]
--- OUTSIDE RECORDS SUMMARY | 2024-12-12 17:59 | XMS_ITS | Patient Health Record ---
Author Organization [facility] Address [address] [place] [address] Care Team Providers Care Silversmith Apprentice Name Role Phone Quinton Callahan MD Primary Care Provider Quinton Mao Unavailable [phone] Reason For Referral No Information Medications Medication [...] Problem Screening for malignant neoplasm of colon (874272465) Encounter for screening for malignant neoplasm of colon (Z12.11) Active confirmed Problem Palmer's esophagus (983364541) Palmer's esophagus without dysplasia (K22.70) Active confirmed Problem Gastroesophageal reflux disease without esophagitis (494179100) Gastroesophageal reflux disease without esophagitis (K21.9) Active confirmed Plan Of Treatment Future Test Test Name Order Date UPPER GI ENDOSCOPY 03/19/2013 UPPER GI ENDOSCOPY 06/11/2019 COLONOSCOPY 06/11/2019 Next Appt Details Provider Name:Quinton Valle Campos , 02/04/2025 01:00:00 PM, [address] [place] [address], [address], [place], [address], Insurance Providers Payer Name Payer Address Payer Phone Subscriber Number Group Number Insured Name Patient Relationship to Insured Coverage Start Date Coverage End Date MEDICARE OF [place] [address] [place] [address] [id number] JUAN FRANCISCO HOWELL Self - patient is the insured Medical (General) History Medical History History ICD Code Colonoscopy in 12/2009 neg e xcept for a hyperplastic polyp, diverticulosis, and internal hemmorhoids GERD with a small area of Ba rrett's esophagus--EGD in 12/2009-small HH-bx neg for dysplasia Splenic vein thrombosis in 1999-- had previously been on Coumadin Denies SC,DM,CVA,renal disease EGD 04/2013 with small area o f Palmer's, no dysplasia nor esophagitis; small hiatal hernia COPD PVD with claudication as below Surgical History Surgery Date(Month/Year) 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 Knott 06/18/2019
== END 2024-12-12 16:09 | disposition home or self-care (01) ==
LOC: HO.HID 15:30
PROVIDERS: PCP Internal Medicine Medical Oncology; Visit Provider Internal Medicine
DX: L03.115 Cellulitis of right lower limb (principal)
CPT/HCPCS: 99213

== ENCOUNTER → 2024-12-12 15:30 | Outpatient (BNVA) | payer MEDICARE, SELFPAY | PROVIDERS: PCP Internal Medicine Medical Oncology; Visit Provider Internal Medicine | DX: L03.115 Cellulitis of right lower limb (principal) | CPT/HCPCS: 99212 ==

== ENCOUNTER 2024-12-16 13:02 | Outpatient (AMB) | payer MEDICARE, SELFPAY ==
--- OUTSIDE RECORDS SUMMARY | 2023-08-14 06:30 | XMS_ITS ---
Author Organization [facility] Address [address] [place] [address] Care Team Providers Care Information Technology Security Analyst Name Role Phone Quinton Callahan MD Primary Care Provider Unavailab Quinton Alvarez [phone] REASON FOR VISIT Patient presents today for EGD, NUGENT'S ESOPHAGUS Encounters Encounter Location Date Provider Diagnosis [facility] [address] [facility] [address] [place] [address] 08/14/2023 Quinton Campos Plan Of Treatment Next Appt Details Provider Name:Quinton Campos , 02/04/2025 01:00:00 PM, [address], [address], [place], [address], Progress Notes * ANGELA HERNANDEZOB:1960 (64 yo M)Acc No.[id number]:08/14/2023 Progress Notes Patient: JUAN FRANCISCO TONG Provider: Angeles Campos MD :1960 A ge:63 Y S ex:Male Date:08/14/2023 Address:[address] [place] [address] [place] Pcp:Quinton Callahan MD Subjective: * Chief Complaints: [...] 0 08/14/2023 Generated for Tristen bustamante/Jai/Allysonitting on: 1 04:45 PM EDT
--- OUTSIDE RECORDS SUMMARY | 2024-06-12 07:30 | XMS_ITS ---
Author Organization Quinton Callahan III, MD Address [address] [place] [address] Care Team Providers Care Radio Station Operator Name Role Phone Dr. Quinton Callahan III Primary Care Provider Allergies Allergen (clinical drug ingredient) Drug/Non Drug Allergy documented on EMR Reaction Allergy Type Onset Date Status No Known Drug Allergy Unknown Drug Allergy Active REASON FOR VISIT Right BKA, Peripheral arterial disease, Benign prostatic hypertrophy, COPD, Umbilical hernia, Palmer's esophagus, Tobacco dependence, Chronic low back pain Medications Medication SIG (Take, Route, Frequency, Duration) Notes Start Date End Date Status Pantoprazole Sodium 40 MG Take 2 tablets by mouth once daily Active Gabapentin 300 MG 1 capsule Orally fou r times a day for 30 days 06/12/2024 Active Eliquis 5 MG 1 Tablet Orally twic e a day Active Gabapentin 400 MG 1 capsule Orally fou r times a day 10/31/2023 Active Vancomycin HCl 10 GM Intravenous Active Albuterol Sulfate HFA 108 (90 Base) MCG/ACT INHALE 2 PUFFS BY MOUTH EVERY 4 TO 6 HOURS NEEDED FOR SHORTNESS OF BREATH OR WHEEZING Inhalation Active ASA 1 tab Oral Active Tylenol 325 MG 1 tablet as needed O rally every 4 hrs Active Breo Ellipta 200-25 MCG/ACT INHALE 1 PUF F BY MOUTH ONCE DAILY Inhalation Active Atorvastatin Calcium 10 MG Take 1 tablet by mouth once daily Active Nystatin 892078 UNIT/GM 1 application Ex ternally Twice a day 12/21/2023 Active Metoprolol Succinate ER 25 MG 1 tablet Orally Once a day Active ibuprofen 1 tab Oral Active Tamsulosin HCl 0.4 MG Take 2 capsules by mouth once daily Active Social History Tobacco Use: Social History [...] Tobacco Non-User Ex -moderate cigarette smoker (10-19/day) Vital Signs Temperature 98.6 degrees Fahrenheit 06/13/19 25 Blood pressure systolic 138 mm Hg 06/13/19 25 Blood pressure diastolic 75 mm Hg 025 Heart Rate 46 /min 06/12/2024 Height 73 in 06/12/2024 Weight 193 lbs 06/12/2024 BMI 25.46 kg/m2 06/12/2024 Encounters Encounter Location Date Provider Diagnosis Quinton Callahan III, MD [address] [place] [address] [address] [place], [place] [id number] 06/12/2024 Quinton Callahan Peripheral arterial disease I73.9 ; Benign prostatic hyperplasia with lower urinary tract symptoms N40.1 ; Palmer's esophagus determined by endoscopy K22.70 ; Chronic obstructive pulmonary disease, unspecified COPD type J44.9 ; Overweight E66.3 ; Tobacco dependence F17.200 and Mixed hyperlipidemia E78.2 Assessments Encounter Date Diagnosis (ICD Code) Assessment Notes Treat ment Notes Treatment Clinical Notes 06/12/2024 Peripheral arterial disease (ICD-10 - I73.9) He is seeing the vascular surgeon rita 2 weeks. 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 The plan is to fit him for a prosthesis. He denies any ulcers or claudication in the left leg. 06/12/2024 Benign prostatic hyperplasia with lower urinary tract symptoms (ICD-10 - N40.1) The tamsulosin was continued today. He will notify me if his symptoms worsen. He has had no retention. He has symptoms of prostatism. 06/12/2024 Palmer's esophagus determined by endoscopy (ICD-10 - K22.70) He is due for an endoscopy and was referred back to his medical delivery technician, Dr. Quinton Campos. 06/12/2024 Chronic obstructive pulmonary disease, unspecified COPD type (ICD-10 - J44.9) He has resumed smoking 5 cigarettes per day. He was counseled about this and made aware of the smoking cessation programs in the area. 06/12/2024 Overweight (ICD-10 - E66.3) His body mass index is 29. We discussed diet and nutrition. I recommended aggressive weight loss and sodium restriction. 06/12/2024 Tobacco dependence (ICD-10 - F17.200) I have counseled him about smoking cessation and offered to refer him to smoking cessation programs in the community. He said he would consider this and try to cut down. 06/12/2024 Mixed hyperlipidemia (ICD-10 - E78.2) A comprehensive laboratory database with a fasting lipid profile will be obtained. He was continued on his currrent meddications. Plan Of Treatment Medication Medication Name Sig Start Date Stop Date Notes Pantoprazole Sodium 40 MG Take 2 tablets by mouth once daily Gabapentin 300 MG 1 capsule Orally fou r times a day for 30 days 06/12/2024 Eliquis 5 MG 1 Tablet Orally twice a day Gabapentin 400 MG 1 capsule Orally fou r times a day 10/31/2023 Vancomycin HCl 10 GM Intravenous Albuterol Sulfate HFA 108 (9 0 Base) MCG/ACT INHALE 2 PUFFS BY MOUTH EVERY 4 TO 6 HOURS NEEDED FOR SHORTNESS OF BREATH OR WHEEZING Inhalation ASA 1 tab Oral Tylenol 325 MG 1 tablet as needed O rally every 4 hrs Breo Ellipta 200-25 MCG/ACT INHALE 1 PUF F BY MOUTH ONCE DAILY Inhalation Atorvastatin Calcium 10 MG Take 1 tablet by mouth once daily Nystatin 254352 UNIT/GM 1 application Ex ternally Twice a day 12/21/2023 Metoprolol Succinate ER 25 MG 1 tablet Orally Once a day ibuprofen 1 tab Oral Tamsulosin HCl 0.4 MG Take 2 capsules by mouth once daily Next Appt Details Follow Up: 4 Weeks, Reason: OV Provider Name:Quinton Callahan , 01/06/2025 02:30:00 PM, [address] [place] [address] [address], [place], [phone], Provider Name:Quinton Callahan , 12/08/2025 02:30:00 PM, [address] [place] [address] [address], [place], [phone], Progress Notes * Ana ENCINAShDOB:1960 (64 yo M)Acc No.[id number]:06/12/2024 Patient: Zan TONG Provider: Angeles Callahan MD :1960 A ge:64 Y S ex:Male Date:06/12/2024 Address:[address] [place], [place] [id number] Subjective: * Chief Complaints: * R ight BKAPeripheral arterial diseaseBenign prostatic hypertrophyCOPDUmbilical herniaBarrett's esophagusTobacco dependenceChronic low back pain * HPI: C OVID-19 Screening: He returns to the office after several hospitalizations. In recent months He has been hospitalized several times with ischemia to the right leg. He has a long history of peripheral arterial disease and recently had a below the knee amputation of the right leg On February 04, 2024.. After that he was readmitted to [facility] with infection of the stump and then osteomyelitis of the remaining tibia. He was discharged on May 29, 2024 to home still receiving intravenous antibiotics. He came to the office today wheelchair. The stump itself is well healed and pink and warm with no sign of skin infection. His hospitalization and surgery was complicated by retroperitoneal bleeding and his anticoagulant with apixaban was stopped and remains stopped. He was in a irregular irregular but slow rhythm today. He is due to and his intravenous antibiotic theerapy July 07, 2024. He is experiencing nocturia twice a night. He is smoking 10 cigarettes a day. He is trying to cut down. He is seeing his vascular surgeon, Dr. Knott. Every 2 weeks. Questions H ave you had any new onset fever, chills, cough, congestion, sore throat, shortness of breath, muscle aches? N o * ROS: G eneral/Constitutional: pain o nly normal aches and pains. C hills d enies.?Fatigue a dmits. F ever d enies. E NT: Decreased hearing d enies. R espiratory: Cough d enies. C ardiovascular: Chest pain with exertion d enies. D yspnea on exertion?denies. S hortness of breath d enies. G astrointestinal: Constipation o ccasional. D ecreased appetite d enies. D iarrhea d enies. H eartburn o ccasional. N ausea d enies. R ectal bleeding d enies. V omiting d enies. H ematology: bruising d enies. p etechiae d enies. S wollen glands n one have been noted. G enitourinary: Frequent urination t wice a night. M usculoskeletal: Muscle aches d enies. P ainful joints d enies. S ciatica d enies. W eakness d enies. S kin: Itching d enies. R husam d enies. S kin lesion(s)?denies. N eurologic: Difficulty speaking d enies. D izziness d enies.?Headache d enies. L ow back pain d enies. P sychiatric: Depressed mood w hich is mild. * Medical History: * Surgical History: t onsillectomy age 6 tracheotomy due to Krish's angina after dental work 1986upper endoscopy and colonoscopy, [facility], Dr. Quinton Campos 2009upper endoscopy, [facility], Dr. Quinton Campos, Palmer's esophagus 2014arteriogram right lower extremity 05/2019Right [id number] amputation 02-04-2024 * Hospitalization/Major Diagno stic Procedure: D enies Past Hospitalization * Family History: F ather: 73 yrs, Diabetes mellitus, coronary artery disease, myocardial infarction, coma with rhabdomyolysis, diagnosed with CVD, DM. M other: alive 80 yrs, Several skin cancers, healthy and well, adult-onset diabetes, hypertension, diagnosed with HTN, Cancer, DM. S iblings: . P aternal Grand Father: , diagnosed with Cancer. P aternal Grand Mother: , diagnosed with Cancer. paternal Grandfather disease Dx with Lung CA. Paternal grandmother disease Dx with pancreatic CA. He has 6 healthy children and 11 healthy grandchildren. One of his siblings has Nszitwy-Kjcmf-Bhbdz disease. One of his children has had an appendectomy. A paternal grandfather of lung cancer and a paternal grandmother of pancreatic cancer. * Social History: T obacco Use: T obacco Use/Smoking P atangie is a c urrent smoker H ow often do you smoke cigarettes? e very day H ow many cigarettes a day do you smoke? 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 He was born in [place], [place]. He came to [place] in 1984. He is with 6 children. He has 11 grandchildren. He is a of [employer]. He trained at [place] and served in [employer]. * Medications: T akingNystatin 136476 UNIT/GM Powder 1 application Externally Twice a [...] 25 MG Tablet Extended Release 24 Hour 1 tablet Orally Once a day Vancomycin HCl 10 GM Solution Reconstituted Intravenous Taking Nystatin 609946 UNIT/GM Powder 1 application Externally Twice a [...] 25 MG Tablet Extended Release 24 Hour 1 tablet Orally Once a day Taking Vancomycin HCl 10 GM Solution Reconstituted Intravenous DiscontinuedEliquis 5 MG Tablet 1 Tablet Orally twice a day Medication List reviewed and reconciled with the patientDiscontinued Eliquis 5 MG Tablet 1 Tablet Orally twice a day Medication List reviewed and reconciled with the patient * Allergies: N o Known Drug Allergyno[Allergies Verified] Objective: * Vitals: H t: 73, Wt:193, BMI:25.46, BP:138/75, HR:46, Temp:98.6, Ht-cm: 185.42, Wt-k.54. * P ast Orders: I maging:XR knee RT 4V (Order Date - 05/26/2024) (Performed Date - 05/26/2024) Lab:Hold Lav - Possible Matt tology * Collection Date 05/29/2024 01/09/2024 01/08/2024 Collection Time 05:09 AM 09:23 PM 11:15 AM Order Date 05/29/2024 01/09/2024 01/08/2024 Hold Lav - Possible Hematology SEE NOTE SEE NOTE SEE NOTE * Lab:Creatinine * Collection Date 05/29/2024 05/28/2024 05/27/2024 Collection Time 05:09 AM 06:15 AM 05:55 AM Order Date 05/29/2024 05/28/2024 05/27/2024 Creatinine 0.79 (Ref Range: 0.5-1.4 mg/dL) 0.81 (Ref Range: 0.5-1.4 mg/dL) 0.84 (Ref Range: 0.5-1.4 mg/dL) Creatinine Clr Calc Pharmacy 100.9 98.4 94.9 Estimated Glomerular Filt Rate > 60 > 60 > 60 * Lab:Vancomycin Random * Collection Date 05/28/2024 05/27/2024 10/03/2023 Collection Time 09:06 PM 09:01 PM 11:59 AM Order Date 05/28/2024 05/27/2024 10/03/2023 Vancomycin Random 13.4 L (Ref Range: 15-20 mcg/mL) 13.2 L (Ref Range: 15-20 mcg/mL) 9.5 L (Ref Range: 15-20 mcg/mL) * Lab:Complete Blood Count Aut o Diff * Collection Date 05/27/2024 05/26/2024 02/05/2024 Collection Time 05:55 AM 03:18 PM 07:15 AM Order Date 05/27/2024 05/26/2024 02/05/2024 White Blood Count 9.2 (Ref Range: 4.8-10.8 X10*3/uL) 10.9 H (Ref Range: 4.8-10.8 X10*3/uL) 11.2 H (Ref Range: 4.8-10.8 X10*3/uL) Red Blood Count 5.17 (Ref Range: 4.60-5.80 X10*6/uL) 5.43 (Ref Range: 4.60-5.80 X10*6/uL) 3.39 L (Ref Range: 4.60-5.80 X10*6/uL) Hemoglobin 15.4 (Ref Range: 14.0-18.0 g/dl) 16.0 (Ref Range: 14.0-18.0 g/dl) 10.0 L (Ref Range: 14.0-18.0 g/dl) Hematocrit 46.3 (Ref Range: 42.0-52.0 %) 48.4 (Ref Range: 42.0-52.0 %) 30.8 L (Ref Range: 42.0-52.0 %) Mean Corpuscular Volume 89.6 (Ref Range: 80.0-98.0 fL) 89.1 (Ref Range: 80.0-98.0 fL) 90.9 (Ref Range: 80.0-98.0 fL) Mean Corpuscular Hemoglobin 29.8 (Ref Range: 27.0-33.0 pg) 29.5 (Ref Range: 27.0-33.0 pg) 29.5 (Ref Range: 27.0-33.0 pg) Mean Corpuscular HGB Conc 33.3 (Ref Range: 31.0-36.0 g/dl) 33.1 (Ref Range: 31.0-36.0 g/dl) 32.5 (Ref Range: 31.0-36.0 g/dl) Red Cell Distribution Width 13.8 (Ref Range: 11.0-16.0 %) 14.1 (Ref Range: 11.0-16.0 %) 13.8 (Ref Range: 11.0-16.0 %) Platelet Count 286 (Ref Range: 160-400 X10*3/uL) 327 (Ref Range: 160-400 X10*3/uL) 281 (Ref Range: 160-400 X10*3/uL) Mean Platelet Volume 9.6 (Ref Range: 9.4-12.4 fL) 10.0 (Ref Range: 9.4-12.4 fL) 9.1 L (Ref Range: 9.4-12.4 fL) Neutrophils Percent Auto 65.6 (Ref Range: 45-73 %) 70.5 (Ref Range: 45-73 %) 75.6 H (Ref Range: 45-73 %) Imm Gran Pct Auto 0.4 (Ref Range: 0.0-0.4 %) 0.4 (Ref Range: 0.0-0.4 %) 0.6 H (Ref Range: 0.0-0.4 %) Lymphocytes Percent Auto 19.0 L (Ref Range: 20-40 %) 16.8 L (Ref Range: 20-40 %) 9.5 L (Ref Range: 20-40 %) Monocytes Percent Auto 11.2 H (Ref Range: 2-11 %) 9.1 (Ref Range: 2-11 %) 13.8 H (Ref Range: 2-11 %) Eosinophils Percent Auto 2.9 (Ref Range: 0-4 %) 2.6 (Ref Range: 0-4 %) 0.2 (Ref Range: 0-4 %) Basophils Percent Auto 0.9 (Ref Range: 0-2 %) 0.6 (Ref Range: 0-2 %) 0.3 (Ref Range: 0-2 %) NRBC Pct Auto 0.0 (Ref Range: 0.0-0.2 /100WBC) 0.0 (Ref Range: 0.0-0.2 /100WBC) 0.0 (Ref Range: 0.0-0.2 /100WBC) Neutrophils Absolute Auto 6.0 (Ref Range: 2.0-8.3 x10*3/uL) 7.7 (Ref Range: 2.0-8.3 x10*3/uL) 8.5 H (Ref Range: 2.0-8.3 x10*3/uL) Imm Gran Abs Auto 0.04 H (Ref Range: 0.00-0.03 X10*3/uL) 0.04 H (Ref Range: 0.00-0.03 X10*3/uL) 0.07 H (Ref Range: 0.00-0.03 X10*3/uL) Lymphocytes Absolute Auto 1.8 (Ref Range: 1.2-4.9 X10*3/uL) 1.8 (Ref Range: 1.2-4.9 X10*3/uL) 1.1 L (Ref Range: 1.2-4.9 X10*3/uL) Monocytes Absolute Auto 1.0 (Ref Range: 0.1-1.2 X10*3/uL) 1.0 (Ref Range: 0.1-1.2 X10*3/uL) 1.5 H (Ref Range: 0.1-1.2 X10*3/uL) Eosinophils Absolute Auto 0.3 (Ref Range: 0.0-0.4 X10*3/uL) 0.3 (Ref Range: 0.0-0.4 X10*3/uL) 0.0 (Ref Range: 0.0-0.4 X10*3/uL) Basophils Absolute Auto 0.1 (Ref Range: 0.0-0.2 X10*3/uL) 0.1 (Ref Range: 0.0-0.2 X10*3/uL) 0.0 (Ref Range: 0.0-0.2 X10*3/uL) NRBC Abs Auto 0.000 (Ref Range: 0.0-0.012 X10*3/uL) 0.000 (Ref Range: 0.0-0.012 X10*3/uL) 0.000 (Ref Range: 0.0-0.012 X10*3/uL) * Lab:Basic Metabolic Panel * Collection Date 05/27/2024 02/06/2024 02/05/2024 Collection Time 05:55 AM 05:36 AM 09:09 AM Order Date 05/27/2024 02/06/2024 02/05/2024 Sodium 140 (Ref Range: 135-145 mmol/L) 136 (Ref Range: 135-145 mmol/L) 137 (Ref Range: 135-145 mmol/L) Blood Urea Nitrogen 11 (Ref Range: 9-16 mg/dL) 10 (Ref Range: 9-16 mg/dL) 11 (Ref Range: 9-16 mg/dL) Creatinine 0.80 (Ref Range: 0.5-1.4 mg/dL) 0.76 (Ref Range: 0.5-1.4 mg/dL) 0.82 (Ref Range: 0.5-1.4 mg/dL) Glucose Random 102 (Ref Range: 60-115 mg/dL) 98 (Ref Range: 60-115 mg/dL) 116 H (Ref Range: 60-115 mg/dL) Calcium 9.0 (Ref Range: 8.4-10.2 mg/dL) 8.9 (Ref Range: 8.4-10.2 mg/dL) 9.1 (Ref Range: 8.4-10.2 mg/dL) Potassium 3.8 (Ref Range: 3.3-5.1 mmol/L) 3.8 (Ref Range: 3.3-5.1 mmol/L) 3.9 (Ref Range: 3.3-5.1 mmol/L) Chloride 107 (Ref Range: 96-108 mmol/L) 103 (Ref Range: 96-108 mmol/L) 103 (Ref Range: 96-108 mmol/L) Carbon Dioxide 27 (Ref Range: 22-29 mmol/L) 24 (Ref Range: 22-29 mmol/L) 26 (Ref Range: 22-29 mmol/L) Anion Gap 10 L (Ref Range: 12-20) 13 (Ref Range: 12-20) 12 (Ref Range: 12-20) Estimated Glomerular Filt Rate > 60 > 60 > 60 Creatinine Clr Calc Pharmacy 99.6 106.3 98.5 * Lab:Blood Culture (First) * Collection Date 05/26/2024 01/18/2024 10/02/2023 Collection Time 03:18 PM 03:28 PM 12:47 AM Order Date 05/26/2024 01/18/2024 10/02/2023 Blood Culture (First) No growth after 5 days. No growth after 5 days. No growth after 5 days. * Lab:Blood Culture (Second) * Collection Date 05/26/2024 01/18/2024 10/02/2023 Collection Time 05:08 PM 03:27 PM 12:58 AM Order Date 05/26/2024 01/18/2024 10/02/2023 Blood Culture (Second) No growth after 5 days. No growth after 5 days. No growth after 5 days. ???Imaging:MR knee RT wo/w con (Order Date - 05/27/2024) (Performed Date - 05/27/2024) * Lab:Erythrocyte Sedimentatio n Rate * Collection Date 05/26/2024 01/18/2024 10/01/2023 Collection Time 05:08 PM 03:28 PM 07:14 PM Order Date 05/26/2024 01/18/2024 10/01/2023 Erythrocyte Sedimentation Rate 10 (Ref Range: 0-15 MM/HR) 92 H (Ref Range: 0-15 MM/HR) 2 (Ref Range: 0-15 MM/HR) * Lab:C Reactive Protein * Collection Date 05/26/2024 01/18/2024 10/01/2023 Collection Time 03:18 PM 03:28 PM 07:14 PM Order Date 05/26/2024 01/18/2024 10/01/2023 C Reactive Protein 1.01 H (Ref Range: < or = 0.50 mg/dL) 14.10 H (Ref Range: < or = 0.50 mg/dL) < 0.04 (Ref Range: < or = 0.50 mg/dL) * Lab:Lactic Acid * Collection Date 05/26/2024 01/18/2024 01/10/2024 Collection Time 03:18 PM 03:28 PM 08:55 PM Order Date 05/26/2024 01/18/2024 01/10/2024 Lactic Acid 1.4 (Ref Range: 0.5-2.0 mmol/L) 1.3 (Ref Range: 0.5-2.0 mmol/L) 7.8 HH (Ref Range: 0.5-2.0 mmol/L) * Lab:Comprehensive Met. Panel * Collection Date 05/26/2024 01/18/2024 01/12/2024 Collection Time 03:18 PM 03:28 PM 05:14 AM Order Date 05/26/2024 01/18/2024 01/12/2024 Sodium 138 (Ref Range: 135-145 mmol/L) 134 L (Ref Range: 135-145 mmol/L) 139 (Ref Range: 135-145 mmol/L) Bilirubin Total 0.4 (Ref Range: 0.0-1.0 mg/dL) 2.4 H (Ref Range: 0.0-1.0 mg/dL) 1.1 H (Ref Range: 0.0-1.0 mg/dL) Aspartate Amino Transferase 23 (Ref Range: 5-37 U/L) 147 H (Ref Range: 5-37 U/L) 27 (Ref Range: 5-37 U/L) Alanine Aminotransferase 13 (Ref Range: 0-40 U/L) 280 H (Ref Range: 0-40 U/L) 14 (Ref Range: 0-40 U/L) Total Protein 6.5 (Ref Range: 6.5-8.0 g/dL) 6.7 (Ref Range: 6.5-8.0 g/dL) 5.8 L (Ref Range: 6.5-8.0 g/dL) Albumin Level 3.6 (Ref Range: 3.5-5.0 g/dL) 3.7 (Ref Range: 3.5-5.0 g/dL) 3.5 (Ref Range: 3.5-5.0 g/dL) Alkaline Phosphatase 92 (Ref Range: 39-117 U/L) 382 H (Ref Range: 39-117 U/L) 56 (Ref Range: 39-117 U/L) Potassium 4.3 (Ref Range: 3.3-5.1 mmol/L) 4.2 (Ref Range: 3.3-5.1 mmol/L) 3.9 (Ref Range: 3.3-5.1 mmol/L) Chloride 107 (Ref Range: 96-108 mmol/L) 102 (Ref Range: 96-108 mmol/L) 103 (Ref Range: 96-108 mmol/L) Carbon Dioxide 21 L (Ref Range: 22-29 mmol/L) 23 (Ref Range: 22-29 mmol/L) 26 (Ref Range: 22-29 mmol/L) Anion Gap 14 (Ref Range: 12-20) 13 (Ref Range: 12-20) 14 (Ref Range: 12-20) Blood Urea Nitrogen 16 (Ref Range: 9-16 mg/dL) 16 (Ref Range: 9-16 mg/dL) 25 H (Ref Range: 9-16 mg/dL) Creatinine 0.80 (Ref Range: 0.5-1.4 mg/dL) 0.80 (Ref Range: 0.5-1.4 mg/dL) 0.90 (Ref Range: 0.5-1.4 mg/dL) Estimated Glomerular Filt Rate > 60 > 60 > 60 Glucose Random 94 (Ref Range: 60-115 mg/dL) 119 H (Ref Range: 60-115 mg/dL) 94 (Ref Range: 60-115 mg/dL) Calcium 9.1 (Ref Range: 8.4-10.2 mg/dL) 9.6 (Ref Range: 8.4-10.2 mg/dL) 8.7 (Ref Range: 8.4-10.2 mg/dL) Creatinine Clr Calc Pharmacy 99.6 101.0 100.0 * Examination: G eneral Examination: GENERAL APPEARANCE: p leasant, well nourished, well developed, in no acute distress, calm and relaxed, overweight, man. HEAD: a traumatic, normocephalic. EYES: e karina, perrla, anicteric, conjugate. EARS: n ormal. NOSE: s eptum intact. ORAL CAVITY: n ormal, unremarkable. NECK/THYROID: n o jugular venous distention, no carotid bruit, thyroid normal. LYMPH NODES: n o enlarged lymph nodes,spleen normal. SKIN: n o suspicious lesions, anicteric. HEART: n o clicks, gallops, murmurs, or rubs, regular rhythm, S1, S2 normal, no s3, or vascular bruits. LUNGS: , diminished breath sounds throughout, rhonchi on the RIGHT, rhonchi on the LEFT, good air movement. BREASTS: no masses palpable bilaterally. ABDOMEN: b owel sounds normal, no ascites, no organomegaly, no mass. RECTAL EXAM: n ot examined. MUSCULOSKELETAL: I leg stump well healed pink and warm.? PERIPHERAL PULSES: n ormal. NEUROLOGIC: a lert and oriented, cranial nerves 2-12 grossly intact, deep tendon reflexes 2+ symmetrical, motor strength normal upper and lower extremities, sensory exam intact. PSYCH: a lert, oriented. Assessment: * Assessment: 1. P eripheral arterial disease - I73.9 (Primary) N otes :He is seeing the vascular surgeon eevery 2 weeks. 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 The plan is to fit him for a prosthesis. He denies any ulcers or claudication in the left leg. 2 . B enign prostatic hyperplasia with lower urinary tract symptoms - N40.1? Notes :The tamsulosin was continued today. He will notify me if his symptoms worsen. He has had no retention. He has symptoms of prostatism. 3 . B arrett's esophagus determined by endoscopy - K22.70 N otes :He is due for an endoscopy and was referred back to his medical delivery technician, Dr. Quinton Campos. 4 . C hronic obstructive pulmonary disease, unspecified COPD type - J44.9 N otes :He has resumed smoking 5 cigarettes per day. He was counseled about this and made aware of the smoking cessation programs in the area. 5 . O verweight - E66.3 N otes :His body mass index is 29. We discussed diet and nutrition. I recommended aggressive weight loss and sodium restriction. 6 . T obacco dependence - F17.200 N otes :I have counseled him about smoking cessation and offered to refer him to smoking cessation programs in the community. He said he would consider this and try to cut down. 7 . M ixed hyperlipidemia - E78.2 N otes :A comprehensive laboratory database with a fasting lipid profile will be obtained. He was continued on his currrent meddications. Plan: * Treatment: 2. O thers Continue Nystatin Powder, 836118 UNIT/GM, 1 application, Externally, Twice a day; C ontinue Atorvastatin Calcium Tablet, 10 MG, Take 1 tablet by mouth once daily; C ontinue Tamsulosin HCl Capsule, 0.4 MG, Take 2 capsules by mouth once daily; C ontinue Pantoprazole Sodium Tablet Delayed Release, 40 MG, Take 2 tablets by mouth once daily. * Procedure Codes: 9 9495 TRANS CARE MGMT 14 DAY DISCH * Preventive Medicine: Counseling: C are goal follow-up plan: Counseling for abnormal BMI given Y es Above Normal BMI Follow-up D ietary management education, guidance, and counseling, Dietary needs education S moking/Tobacco Use Patient counseled on the dangers of tobacco use and urged to quit. 0 06/12/2024 Patient Lifestyle Goals P atient wants to quit Treatment Goals S et a quit date, Cut down by 1 cigarette a week Barriers S ocial smoker, Stress Self-Management Plan M rashida a plan to cut down number of cigarettes over time and set a date to work towards quitting COPD Care Plan: P atient Lifestyle Goals R elieve symptoms and improve quality of life, Reduce number of ED and hospitalizations, Be able to be more active with friends and family. T reatment Goals Q uit Smoking. B arriers n o barriers. S elf-Managment Goals M rashida a plan for quitting smoking. * Follow Up: 4 Weeks (Reason: OV) * Images: * Sign off status: Completed true * Provider: Angeles Callahan MD Date: 0 06/12/2024 Generated for Tristen bustamante/Jai/Lvransmitting on: 1 04:48 PM EDT History and Physical Notes * HPI (History of Present Illness) Category Sub-Category Detail Notes COVID-19 Screening Questions Have you had any new onset fever, chills, cough, congestion, sore throat, shortness of breath, muscle aches?: No Examination Category Sub-Category Detail Notes General Examination GENERAL APPEARANCE: pleasant , well nourished, well developed, in no acute distress, calm and relaxed, overweight, man HEAD: atraumatic, normocep halic EYES: eomi, perrla, anicte severiano, conjugate EARS: normal NOSE: septum intact NECK/THYROID: no jugular venous di stention, no carotid bruit, thyroid normal HEART: no clicks, gallops, murmurs, or rubs, regular rhythm, S1, S2 normal, no s3, or vascular bruits LUNGS: , diminished breath sounds throughout, rhonchi on the RIGHT, rhonchi on the LEFT, good air movement ABDOMEN: bowel sounds normal, no ascites, no organomegaly, no mass NEUROLOGIC: alert and oriented, cranial nerves 2-12 grossly intact, deep tendon reflexes 2+ symmetrical, motor strength normal upper and lower extremities, sensory exam intact SKIN: no suspicious lesion s, anicteric PERIPHERAL PULSES: normal BREASTS: no masses palpable b ilaterally MUSCULOSKELETAL: I leg stump well hea led pink and warm LYMPH NODES: no enlarged lymph no pinky,spleen normal RECTAL EXAM: not examined PSYCH: alert, oriented ORAL CAVITY: normal, unremarkable
--- OUTSIDE RECORDS SUMMARY | 2024-07-10 07:45 | XMS_ITS ---
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 Quinton Callahan III Primary Care Provider Allergies Allergen (clinical drug ingredient) Drug/Non Drug Allergy documented on EMR Reaction Allergy Type Onset Date Status No Known Drug Allergy Unknown Drug Allergy Active REASON FOR VISIT Osteomyelitis right tibia, Recent right below the knee amputation, Peripheral vascular disease, Benign prostatic hypertrophy, COPD, Palmer's esophagus, Tobacco dependence, Hyperlipidemia Medications Medication SIG (Take, Route, Frequency, Duration) Notes Start Date End Date Status Eliquis 5 MG 1 Tablet Orally twic e a day Active Gabapentin 400 MG 1 capsule Orally fou r times a day 10/31/2023 Active Vancomycin HCl 10 GM Intravenous Active Gabapentin 300 MG 1 capsule Orally fou r times a day 06/12/2024 Active Breo Ellipta 200-25 MCG/ACT INHALE 1 PUF F BY MOUTH ONCE DAILY Inhalation Active Albuterol Sulfate HFA 108 (90 Base) MCG/ACT INHALE 2 PUFFS BY MOUTH EVERY 4 TO 6 HOURS NEEDED FOR SHORTNESS OF BREATH OR WHEEZING Inhalation Active Pantoprazole Sodium 40 MG Take 2 tablets by mouth once daily Active Doxycycline Hyclate 100 MG 1 capsule Ora lly twice a day 07/10/2024 Active ASA 1 tab Oral Active Nystatin 429575 UNIT/GM 1 application Ex ternally Twice a day 12/21/2023 Active Atorvastatin Calcium 10 MG Take 1 tablet by mouth once daily Active Tamsulosin HCl 0.4 MG Take 2 capsules by mouth once daily Active ibuprofen 1 tab Oral Active Tylenol 325 MG 1 tablet as needed O rally every 4 hrs Active Metoprolol Succinate ER 25 MG 1 tablet Orally Once a day Active Social History Tobacco Use: [...] Tobacco Non-User Ex -moderate cigarette smoker (10-19/day) Problems Problem Type SNOMED Code ICD Code Onset Dates Problem Status W/U Status Risk Notes Problem [id number] 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 Vascular has referred him to infectious disease for an opinion. The patient I today discussed the possibility of an jgscf-gwl-dk ee amputation and what it would be like walking. 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 The plan is to fit him for a prosthesis. He denies any ulcers or claudication in the left leg. 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 There has been talk of an above the knee right amputation. This will depend upon the chronicity of the drainage in the infection. 07/10/2024 Benign prostatic hyperplasia with lower urinary tract symptoms (ICD-10 - N40.1) The tamsulosin was continued today. He will notify me if his symptoms worsen. He has had no retention. He has symptoms of prostatism. 07/10/2024 Palmer's esophagus determined by endoscopy (ICD-10 - K22.70) He is due for an endoscopy and was referred back to his planner internship, Dr. Quinton Campos. 07/10/2024 Chronic obstructive pulmonary disease, unspecified COPD type (ICD-10 - J44.9) He has resumed smoking 5 cigarettes per day. He was counseled about this and made aware of the smoking cessation programs in the area. 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 07/10/2024 Hiatal hernia (ICD-10 - K44.9) The symptoms of his esophageal reflux and hiatal hernia well controlled with current medications. No change in his regimen as needed. 07/10/2024 Umbilical hernia without obstruction and without gangrene (ICD-10 - K42.9) This is asymptomatic and requires no treatment at this time. 07/10/2024 Tobacco dependence (ICD-10 - F17.200) I have counseled him about smoking cessation and offered to refer him to smoking cessation programs in the community. He said he would consider this and try to cut down. Plan Of Treatment Medication Medication Name Sig Start Date Stop Date Notes Eliquis 5 MG 1 Tablet Orally twice a day Gabapentin 400 MG 1 capsule Orally fou r times a day 10/31/2023 Vancomycin HCl 10 GM Intravenous Gabapentin 300 MG 1 capsule Orally fou r times a day 06/12/2024 Breo Ellipta 200-25 MCG/ACT INHALE 1 PUF F BY MOUTH ONCE DAILY Inhalation Albuterol Sulfate HFA 108 (9 0 Base) MCG/ACT INHALE 2 PUFFS BY MOUTH EVERY 4 TO 6 HOURS NEEDED FOR SHORTNESS OF BREATH OR WHEEZING Inhalation Pantoprazole Sodium 40 MG Take 2 tablets by mouth once daily Doxycycline Hyclate 100 MG 1 capsule Orally twice a day ASA 1 tab Oral Nystatin 822310 UNIT/GM 1 application Ex ternally Twice a day 12/21/2023 Atorvastatin Calcium 10 MG Take 1 tablet by mouth once daily Tamsulosin HCl 0.4 MG Take 2 capsules by mouth once daily ibuprofen 1 tab Oral Tylenol 325 MG 1 tablet as needed O rally every 4 hrs Metoprolol Succinate ER 25 MG 1 tablet Orally Once a day Next Appt Details Follow Up: 2 Months, Reason: OV Provider Name:Quinton Callahan , 01/06/2025 02:30:00 PM, [address] [place] [address] [place], [place], [address], Provider Name:Quinton Callahan , 12/08/2025 02:30:00 PM, [address] [place] [address] KAILYN JURADO, [place], [phone], Progress Notes * Ana ENCINAShDOB:1960 (64 yo M)Acc No.[id number]:07/10/2024 Progress Notes Patient: Zan TONG Provider: Angeles Callahan MD :1960 A ge:64 Y S ex:Male Date:07/10/2024 Address:[address] [place], [place] [id number] Subjective: * Chief Complaints: * O steomyelitis right tibiaRecent right below the knee amputationPeripheral vascular diseaseBenign prostatic hypertrophyCOPDBarrett's esophagusTobacco dependenceHyperlipidemia * HPI: C OVID-19 Screening: Sanjana vallejo returns for management of multiple medical problems. He continues on antibiotics through Dr. Berenice Andre Of infectious disease for osteomyelitis of the tibial stump. He has a small opening in the stone with purulent drainage still. There has been discussion of an mgdkk-puj-xgdr amputation. He is currently being treated with long-term doxycycline which he says causes nausea. He saw infectious disease last week. He continues to smoke a package of cigarettes per day. He is wheelchair confined and nonambulatory. Is living at home. Questions H ave you had any new onset fever, chills, cough, congestion, sore throat, shortness of breath, muscle aches? N o * ROS: G eneral/Constitutional: pain o nly normal aches and pains. C hills d enies.?Fatigue a dmits. F ever d enies. E NT: Decreased hearing d enies. R espiratory: Cough n on-productive. C ardiovascular: Chest pain with exertion d enies. D yspnea on exertion?denies. S hortness of breath w ith exertion. G astrointestinal: Constipation o ccasional. D ecreased appetite d enies. D iarrhea d enies. H eartburn d enies. N ausea d enies. R ectal bleeding d enies. V omiting d enies. H ematology: bruising d enies. p etechiae d enies. S wollen glands n one have been noted. G enitourinary: Frequent urination o nce a night. M usculoskeletal: Muscle aches d enies. P ainful joints d enies. S ciatica d enies. W eakness d enies. S kin: Itching d enies. R husam d enies. S kin lesion(s)?denies. N eurologic: Difficulty speaking d enies. D izziness d enies.?Headache d enies. L ow back pain d enies. P sychiatric: Depressed mood d enies. * Medical History: * Surgical History: t onsillectomy age 6 tracheotomy due to Krish's angina after dental work 1986upper endoscopy and colonoscopy, [facility], Dr. Quinton Campos 2009upper endoscopy, [facility], Dr. Quinton Campos, Palmer's esophagus 2014arteriogram right lower extremity 05/2019Right gwuwv-ini-cbqh amputation 02-04-2024 * Hospitalization/Major Diagno stic Procedure: D enies Past Hospitalization * Family History: F ather: 73 yrs, Diabetes mellitus, coronary artery disease, myocardial infarction, coma with rhabdomyolysis, diagnosed with DM, CVD. M other: alive 80 yrs, Several skin cancers, healthy and well, adult-onset diabetes, hypertension, diagnosed with Cancer, DM, HTN. S iblings: . P aterogelio Grand Father: , diagnosed with Cancer. P aterogelio Grand Mother: , diagnosed with Cancer. paternal Grandfather disease Dx with Lung CA. Paternal grandmother disease Dx with pancreatic CA. He has 6 healthy children and 11 healthy grandchildren. One of his siblings has Xoywkqc-Ecsdy-Dvrab disease. 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 He was born in [place], [place]. He came to [place] in 1984. He is with 6 children. He has 11 grandchildren. He is a of [employer]. He trained at [employer] and served in [employer]. * Medications: T akingDoxycycline Hyclate 100 MG Capsule 1 capsule Orally twice a day Metoprolol Succinate ER 25 MG Tablet Extended Release 24 Hour 1 tablet Orally Once a day Nystatin 312450 UNIT/GM Powder 1 application Externally Twice a [...] Take 2 tablets by mouth once daily Eliquis 5 MG Tablet 1 Tablet Orally twice a day Gabapentin 300 MG Capsule 1 capsule Orally four times a day Gabapentin 400 MG Capsule 1 capsule Orally four times a day Taking Doxycycline Hyclate 100 MG Capsule 1 capsule Orally twice a day Taking Metoprolol Succinate ER 25 MG Tablet Extended Release 24 Hour 1 tablet Orally Once a day Taking Nystatin 755680 UNIT/GM Powder 1 application Externally Twice a [...] 2 tablets by mouth once daily Taking Eliquis 5 MG Tablet 1 Tablet Orally twice a day Taking Gabapentin 300 MG Capsule 1 capsule Orally four times a day Taking Gabapentin 400 MG Capsule 1 capsule Orally four times a day DiscontinuedVancomycin HCl 10 GM Solution Reconstituted Intravenous Medication List reviewed and reconciled with the patientDiscontinued Vancomycin HCl 10 GM Solution Reconstituted Intravenous Medication List reviewed and reconciled with the patient * Allergies: N o Known Drug Allergyno[Allergies Verified] Objective: * Vitals: H t: 73, Wt:185, BMI:24.41, BP:108/53, HR:70, Temp:98.6, Ht-cm: 185.42, Wt-k.91. * P ast Orders: I maging:XR knee RT 4V (Order Date - 05/26/2024) (Performed Date - 05/26/2024) Lab:C Reactive Protein * Collection Date 05/26/2024 01/18/2024 10/01/2023 Collection Time 03:18 PM 03:28 PM 07:14 PM Order Date 05/26/2024 01/18/2024 10/01/2023 C Reactive Protein 1.01 H (Ref Range: < or = 0.50 mg/dL) 14.10 H (Ref Range: < or = 0.50 mg/dL) < 0.04 (Ref Range: < or = 0.50 mg/dL) * Lab:Blood Culture (First) * Collection Date 05/26/2024 01/18/2024 10/02/2023 Collection Time 03:18 PM 03:28 PM 12:47 AM Order Date 05/26/2024 01/18/2024 10/02/2023 Blood Culture (First) No growth after 5 days. No growth after 5 days. No growth after 5 days. * Lab:Complete Blood Count Aut o Diff * Collection Date 06/30/2024 05/27/2024 05/26/2024 Collection Time 11:45 AM 05:55 AM 03:18 PM Order Date 06/30/2024 05/27/2024 05/26/2024 White Blood Count 8.9 (Ref Range: 4.8-10.8 X10*3/uL) 9.2 (Ref Range: 4.8-10.8 X10*3/uL) 10.9 H (Ref Range: 4.8-10.8 X10*3/uL) Red Blood Count 5.18 (Ref Range: 4.60-5.80 X10*6/uL) 5.17 (Ref Range: 4.60-5.80 X10*6/uL) 5.43 (Ref Range: 4.60-5.80 X10*6/uL) Hemoglobin 15.8 (Ref Range: 14.0-18.0 g/dl) 15.4 (Ref Range: 14.0-18.0 g/dl) 16.0 (Ref Range: 14.0-18.0 g/dl) Hematocrit 47.4 (Ref Range: 42.0-52.0 %) 46.3 (Ref Range: 42.0-52.0 %) 48.4 (Ref Range: 42.0-52.0 %) Mean Corpuscular Volume 91.5 (Ref Range: 80.0-98.0 fL) 89.6 (Ref Range: 80.0-98.0 fL) 89.1 (Ref Range: 80.0-98.0 fL) Mean Corpuscular Hemoglobin 30.5 (Ref Range: 27.0-33.0 pg) 29.8 (Ref Range: 27.0-33.0 pg) 29.5 (Ref Range: 27.0-33.0 pg) Mean Corpuscular HGB Conc 33.3 (Ref Range: 31.0-36.0 g/dl) 33.3 (Ref Range: 31.0-36.0 g/dl) 33.1 (Ref Range: 31.0-36.0 g/dl) Red Cell Distribution Width 13.0 (Ref Range: 11.0-16.0 %) 13.8 (Ref Range: 11.0-16.0 %) 14.1 (Ref Range: 11.0-16.0 %) Platelet Count 286 (Ref Range: 160-400 X10*3/uL) 286 (Ref Range: 160-400 X10*3/uL) 327 (Ref Range: 160-400 X10*3/uL) Mean Platelet Volume 9.6 (Ref Range: 9.4-12.4 fL) 9.6 (Ref Range: 9.4-12.4 fL) 10.0 (Ref Range: 9.4-12.4 fL) Neutrophils Percent Auto 69.3 (Ref Range: 45-73 %) 65.6 (Ref Range: 45-73 %) 70.5 (Ref Range: 45-73 %) Imm Gran Pct Auto 0.5 H (Ref Range: 0.0-0.4 %) 0.4 (Ref Range: 0.0-0.4 %) 0.4 (Ref Range: 0.0-0.4 %) Lymphocytes Percent Auto 16.4 L (Ref Range: 20-40 %) 19.0 L (Ref Range: 20-40 %) 16.8 L (Ref Range: 20-40 %) Monocytes Percent Auto 9.3 (Ref Range: 2-11 %) 11.2 H (Ref Range: 2-11 %) 9.1 (Ref Range: 2-11 %) Eosinophils Percent Auto 3.7 (Ref Range: 0-4 %) 2.9 (Ref Range: 0-4 %) 2.6 (Ref Range: 0-4 %) Basophils Percent Auto 0.8 (Ref Range: 0-2 %) 0.9 (Ref Range: 0-2 %) 0.6 (Ref Range: 0-2 %) NRBC Pct Auto 0.0 (Ref Range: 0.0-0.2 /100WBC) 0.0 (Ref Range: 0.0-0.2 /100WBC) 0.0 (Ref Range: 0.0-0.2 /100WBC) Neutrophils Absolute Auto 6.1 (Ref Range: 2.0-8.3 x10*3/uL) 6.0 (Ref Range: 2.0-8.3 x10*3/uL) 7.7 (Ref Range: 2.0-8.3 x10*3/uL) Imm Gran Abs Auto 0.04 H (Ref Range: 0.00-0.03 X10*3/uL) 0.04 H (Ref Range: 0.00-0.03 X10*3/uL) 0.04 H (Ref Range: 0.00-0.03 X10*3/uL) Lymphocytes Absolute Auto 1.5 (Ref Range: 1.2-4.9 X10*3/uL) 1.8 (Ref Range: 1.2-4.9 X10*3/uL) 1.8 (Ref Range: 1.2-4.9 X10*3/uL) Monocytes Absolute Auto 0.8 (Ref Range: 0.1-1.2 X10*3/uL) 1.0 (Ref Range: 0.1-1.2 X10*3/uL) 1.0 (Ref Range: 0.1-1.2 X10*3/uL) Eosinophils Absolute Auto 0.3 (Ref Range: 0.0-0.4 X10*3/uL) 0.3 (Ref Range: 0.0-0.4 X10*3/uL) 0.3 (Ref Range: 0.0-0.4 X10*3/uL) Basophils Absolute Auto 0.1 (Ref Range: 0.0-0.2 X10*3/uL) 0.1 (Ref Range: 0.0-0.2 X10*3/uL) 0.1 (Ref Range: 0.0-0.2 X10*3/uL) NRBC Abs Auto 0.000 (Ref Range: 0.0-0.012 X10*3/uL) 0.000 (Ref Range: 0.0-0.012 X10*3/uL) 0.000 (Ref Range: 0.0-0.012 X10*3/uL) * Lab:Blood Culture (Second) * Collection Date 05/26/2024 01/18/2024 10/02/2023 Collection Time 05:08 PM 03:27 PM 12:58 AM Order Date 05/26/2024 01/18/2024 10/02/2023 Blood Culture (Second) No growth after 5 days. No growth after 5 days. No growth after 5 days. * Lab:Erythrocyte Sedimentatio n Rate * Collection Date 05/26/2024 01/18/2024 10/01/2023 Collection Time 05:08 PM 03:28 PM 07:14 PM Order Date 05/26/2024 01/18/2024 10/01/2023 Erythrocyte Sedimentation Rate 10 (Ref Range: 0-15 MM/HR) 92 H (Ref Range: 0-15 MM/HR) 2 (Ref Range: 0-15 MM/HR) * Lab:Comprehensive Met. Panel * Collection Date [...] Clr Calc Pharmacy 99.6 101.0 100.0 * Lab:Lactic Acid * Collection Date 05/26/2024 01/18/2024 01/10/2024 Collection Time 03:18 PM 03:28 PM 08:55 PM Order Date 05/26/2024 01/18/2024 01/10/2024 Lactic Acid 1.4 (Ref Range: 0.5-2.0 mmol/L) 1.3 (Ref Range: 0.5-2.0 mmol/L) 7.8 HH (Ref Range: 0.5-2.0 mmol/L) * Lab:Creatinine * Collection Date 06/30/2024 05/29/2024 05/28/2024 Collection Time 11:45 AM 05:09 AM 06:15 AM 05:55 AM Order Date 06/30/2024 05/29/2024 05/28/2024 05/27/2024 Creatinine 1.10 (Ref Range: 0.5-1.4 mg/dL) 0.79 (Ref Range: 0.5-1.4 mg/dL) 0.81 (Ref Range: 0.5-1.4 mg/dL) 0.84 (Ref Range: 0.5-1.4 mg/dL) Creatinine Clr Calc Pharmacy NR 100.9 98.4 94.9 Estimated Glomerular Filt Rate > 60 > 60 > 60 > 60 * Lab:Vancomycin Random * Collection Date 05/28/2024 05/27/2024 10/03/2023 Collection Time 09:06 PM 09:01 PM 11:59 AM Order Date 05/28/2024 05/27/2024 10/03/2023 Vancomycin Random 13.4 L (Ref Range: 15-20 mcg/mL) 13.2 L (Ref Range: 15-20 mcg/mL) 9.5 L (Ref Range: 15-20 mcg/mL) * Lab:Basic Metabolic Panel * Collection Date [...] Clr Calc Pharmacy 99.6 106.3 98.5 * Lab:Hold Lav - Possible Matt tology * Collection Date 05/29/2024 01/09/2024 01/08/2024 Collection Time 05:09 AM 09:23 PM 11:15 AM Order Date 05/29/2024 01/09/2024 01/08/2024 Hold Lav - Possible Hematology SEE NOTE SEE NOTE SEE NOTE ???Lab:Vancomycin Trough (Order Date - 06/30/2024) (Collection Date & Time - 06/30/2024 11:45 AM)?ValueReference Range?Vancomycin Bhbmuh83.4H 10.0-20.0 - mcg/mL ???Imaging:MR knee RT wo/w con (Order Date - 05/27/2024) (Performed Date - 05/27/2024) * Examination: G eneral Examination: GENERAL APPEARANCE: p leasant, well nourished, well developed, in no acute distress, calm and relaxed, manSeen in a wheelchair. HEAD: a traumatic, normocephalic. EYES: e karina, [...] normal, no s3, or vascular bruits. LUNGS: diminished breath sounds throughout, rhonchi on the RIGHT, rhonchi on the LEFT, scattered inspiratory wheezes. BREASTS: no masses palpable bilaterally. ABDOMEN: b owel sounds normal, no ascites, no organomegaly, no mass. RECTAL EXAM: n ot examined. MUSCULOSKELETAL: e xtremities unremarkable, no clubbing, cyanosis or edema, right BKA with open sinus draining pus. PERIPHERAL PULSES: n ormal. NEUROLOGIC: a lert and oriented, cranial nerves 2-12 grossly intact, deep tendon reflexes 2+ symmetrical, motor strength normal upper and lower extremities, sensory exam intact. PSYCH: a lert, oriented, cooperative with exam, cognitive function intact, good eye contact, speech clear, mood depressed. Assessment: * Assessment: 1. C hronic osteomyelitis of right tibia with draining sinus - M86.461 (Primary) ?Notes :He is under the care of infectious disease on oral doxycycline long- term. There has been talk of an above the knee right amputation. This will depend upon the chronicity of the drainage in the infection. 2 . P eripheral arterial disease - I73.9 N otes :He is seeing the vascular surgeon eebrcok 2 weeks. 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 The plan is to fit him for a prosthesis. He denies any ulcers or claudication in the left leg. 3 . B enign prostatic hyperplasia with lower urinary tract symptoms - N40.1? Notes :The tamsulosin was continued today. He will notify me if his symptoms worsen. He has had no retention. He has symptoms of prostatism. 4 . B arrett's esophagus determined by endoscopy - K22.70 N otes :He is due for an endoscopy and was referred back to his planner internship, Dr. Quinton Campos. 5 . C hronic obstructive pulmonary disease, unspecified COPD type - J44.9 N otes :He has resumed smoking 5 cigarettes per day. He was counseled about this and made aware of the smoking cessation programs in the area. 6 . S plenic vein thrombosis - I82.890 N otes :There have been no further signs of thromboembolism. 7 . H iatal hernia - K44.9 N otes :The symptoms of his esophageal reflux and hiatal hernia well controlled with current medications. No change in his regimen as needed. 8 . U mbilical hernia without obstruction and without gangrene - K42.9 ? N otes :This is asymptomatic and requires no treatment at this time. 9 . T obacco dependence - F17.200 N otes :I have counseled him about smoking cessation and offered to refer him to smoking cessation programs in the community. He said he would consider this and try to cut down. Plan: * Treatment: 2. O thers Continue Nystatin Powder, 915683 UNIT/GM, 1 application, Externally, Twice a day; C ontinue Atorvastatin Calcium Tablet, 10 MG, Take 1 tablet by mouth once daily; C ontinue Tamsulosin HCl Capsule, 0.4 MG, Take 2 capsules by mouth once daily; C ontinue Pantoprazole Sodium Tablet Delayed Release, 40 MG, Take 2 tablets by mouth once daily. * Procedure Codes: * Preventive Medicine: Counseling: S moking/Tobacco Use Patient counseled on the dangers of tobacco use and urged to quit. 0 07/10/2024 Patient Lifestyle Goals P atient wants to quit Treatment Goals S et a quit date, Cut down by 1 cigarette a week Barriers S tress, Social smoker Self-Management Plan M rashida a plan to [...] M rashida a plan for quitting smoking. E xpected Outcomes i mproving quality of life, maintaining functional ability to perform daily activities. * Follow Up: 2 Months (Reason: OV) * Images: * Sign off status: Completed true * Provider: Angeles Callahan MD Date: 0 07/10/2024 Generated for Printi ng/Faxing/eTransmitting on: 1 04:47 PM EDT History and Physical Notes * HPI (History of Present Illness) Category Sub-Category Detail Notes COVID-19 Screening Questions Have you had any new onset fever, chills, cough, congestion, sore throat, shortness of breath, muscle aches?: No Examination Category Sub-Category Detail Notes General Examination GENERAL APPEARANCE: pleasant , well nourished, well developed, in no acute distress, calm and relaxed, manSeen in a wheelchair HEAD: atraumatic, normocep halic EYES: eomi, perrla, anicte severiano, conjugate EARS: normal NOSE: septum intact NECK/THYROID: no jugular venous di stention, no carotid bruit, thyroid normal HEART: no clicks, gallops, murmurs, or rubs, regular rhythm, S1, S2 normal, no s3, or vascular bruits LUNGS: diminished breath so unds throughout, rhonchi on the RIGHT, rhonchi on the LEFT, scattered inspiratory wheezes ABDOMEN: bowel sounds normal, no ascites, no organomegaly, no mass NEUROLOGIC: alert and oriented, cranial nerves 2-12 grossly intact, deep tendon reflexes 2+ symmetrical, motor strength normal upper and lower extremities, sensory exam intact SKIN: no suspicious lesion s, anicteric PERIPHERAL PULSES: normal BREASTS: no masses palpable b ilaterally MUSCULOSKELETAL: extremities unremark able, no clubbing, cyanosis or edema, right BKA with open sinus draining pus LYMPH NODES: no enlarged lymph no pinky,spleen normal RECTAL EXAM: not examined PSYCH: alert, oriented, clinic office coordinator perative with exam, cognitive function intact, good eye contact, speech clear, mood depressed ORAL CAVITY: normal, unremarkable
--- OUTSIDE RECORDS SUMMARY | 2024-07-23 10:04 | XMS_ITS ---
Author Organization Quinton Callahan III, MD Address [address] [place] [address] [place] [address] Care Team Providers Care Friction Welding Machine Operator Name Role Phone Dr. Quinton Callahan III Primary Care Provider [phone] REASON FOR VISIT Message Social History Sex Assigned At : Social History Observation Description Sex Assigned At Male Encounters Encounter Location Date Provider Diagnosis Quinton Callahan III, MD [address] [place] [address] [place] [address] 07/23/2024 Quinton Callahan Plan Of Treatment Next Appt Details Provider Name:Quinton Callahan , 01/06/2025 02:30:00 PM, [address] [place] [address] [place], [address], Provider Name:Quinton Callahan , 12/08/2025 02:30:00 PM, [address] [place] [address] [place], [address], Progress Notes * MARY JuanrheahDOB:1960 (64 yo M)Acc No.[id number]:07/23/2024 Patient: Ana TONGh :1960 A ge:64 Y S ex:Male Address:[address] [place] [address], [address], [place], [address] * true * Date: Generated for Printi ng/Faxing/eTransmitting on: 04:45 PM EDT
--- OUTSIDE RECORDS SUMMARY | 2024-08-27 09:45 | XMS_ITS ---
Author Organization Quinton Callahan III, MD Address [address] [place] [address] [place] [address] Care Team Providers Care Subacute Nurse Name Role Phone Dr. Quinton Callahan III Primary Care Provider REASON FOR VISIT ? Medication hold Social History Sex Assigned At : Social History Observation Description Sex Assigned At Male Encounters Encounter Location Date Provider Diagnosis Quinton Callahan III, MD [address] [place] [address] [place] [address] 08/27/2024 Quinton Callahan Plan Of Treatment Next Appt Details Provider Name:Quinton Callahan , 01/06/2025 02:30:00 PM, [address] [place] [address] [place], [address], Provider Name:Quinton Callahan , 12/08/2025 02:30:00 PM, [address] [place] [address] [place], [address], Progress Notes * MARY JuanrheahDOB:1960 (64 yo M)Acc No.[id number]:08/27/2024 Patient: Zan TONG :1960 A ge:64 Y S ex:Male Address:[address] [place] [address], [address], [place], [address] * true * Date: Generated for Printi ng/Faxing/eTransmitting on: 04:48 PM EDT
--- OUTSIDE RECORDS SUMMARY | 2024-09-04 07:30 | XMS_ITS ---
Author Organization Quinton Callahan III, MD Address [address] [place] [address] [place] [address] Care Team Providers Care Private Tutors And Teachers Name Role Phone Dr. Quinton Callahan III Primary Care Provider [phone] REASON FOR VISIT update on pt condition Social History Sex Assigned At : Social History Observation Description Sex Assigned At Male Encounters Encounter Location Date Provider Diagnosis Quinton Callahan III, MD [address] [place] [address] [place] [address] 09/04/2024 Quinton Callahan Plan Of Treatment Next Appt Details Provider Name:Quinton Callahan , 01/06/2025 02:30:00 PM, [address] [place] [address] [place], [address], Provider Name:Quinton Callahan , 12/08/2025 02:30:00 PM, [address] [place] [address] [place], [address], Progress Notes * HUANGAnahDOB:1960 (64 yo M)Acc No.[id number]:09/04/2024 Patient: Zan TONG :1960 A ge:64 Y S ex:Male Address:[address] [place] [address], [address], [place], [address] * true * Date: Generated for Printi ng/Faxing/eTransmitting on: 04:46 PM EDT
--- OUTSIDE RECORDS SUMMARY | 2024-09-09 07:30 | XMS_ITS ---
Author Organization Quinton Callahan III, MD Address [address] [place] [address] [place] [address] Care Team Providers Care Compressor Engineer Name Role Phone Dr. Quinton Callahan III [...] Provider Speciality Internal M edicine Referred Provider [facility] er, Cardiology Referred Provider Specialty Cardiology [...] in a message to Dr. Ferrer's medical claims representative to ask if the patient can be [...] Provider Diagnosis Quinton Callahan III, MD [address] [place] [address] [place] [address] 09/09/2024 Quinton Callahan Irregular heart rate I49.9 [...] endoscopy and was referred back to his ibm mainframe developer, Dr. Quinton Campos. 09/09/2024 Chronic obstructive pulmonary [...] Irregular Heart Rate History of A-Fib, Cardiology [facility] Next Appt Details Follow Up: 3 Weeks, Reason: OV Provider Name:Quinton Callahan , 01/06/2025 02:30:00 PM, [address] [place] [address] [address], [place], [address], Provider Name:Quinton Callahan , 12/08/2025 02:30:00 PM, [address] [place] [address] [address], [place], [address], Progress Notes * Ana ENCINAShDOB:1960 (64 yo M)Acc No.[id number]:09/09/2024 Progress Notes Patient: Zan TONG Provider: Angeles Callahan MD :1960 A ge:64 Y S ex:Male Date:09/09/2024 Address:[address] [place] [address], [facility] [id number] Subjective: * Chief Complaints: * R ight [...] after dental work 1985upper endoscopy and colonoscopy, [facility], Dr. Quinton Campos 2009upper endoscopy, [facility], Dr. Quinton Campos, Palmer's esophagus 2014arteriogram right lower extremity 05/2019Right vjqwe-rqv-sxoe amputation 02-04-2024 * Hospitalization/Major Diagno stic Procedure: [...] healthy grandchildren. One of his siblings has Sutmssx-Dkgcg-Jefdg disease. 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 He was born in [place], [place]. He came to [place] in 1984. He is with 6 children. He has 11 grandchildren. He is a of [employer]. He trained at [employer] and served in [employer]. * Medications: T akingMetoprolol Succinate ER 25 [...] 2 tablets by mouth once daily DiscontinuedNystatin 430804 UNIT/GM Powder 1 application Externally Twice a [...] reviewed and reconciled with the patientDiscontinued Nystatin 500594 UNIT/GM Powder 1 application Externally Twice a [...] endoscopy and was referred back to his ibm mainframe developer, Dr. Quinton Campos. 5 . C hronic [...] * Treatment: 2. O thers Referral To:Cardiology [facility] Cardiology Reason:Evaluate and Treat Irregular [...] 09/09/2024 Generated for Tristen bustamante/Jai/eTransmitting on: 1 04:48 PM EDT History and [...] Referred Provider Not nicholas 09/09/2024 Quinton Callahan [facility], Cardiology Evaluate and Treat Irregular Heart Rate History of A-Fib
--- OUTSIDE RECORDS SUMMARY | 2024-09-30 10:00 | XMS_ITS ---
Author Organization Quinton Callahan III, MD Address [address] [place] [address] [place] [phone] Care Team Providers Care Sales Account Specialist Name Role Phone Dr. Quinton Callahan III Primary Care Provider [phone] Allergies Allergen (clinical drug ingredient) Drug/Non Drug [...] Provider Specialty Urology General Notes Jolie Gonzalez [facility] 09/30 03:24:56 PM >I called Dr Flores office made patient an appt for 12/03/2024 at 2:45pm pt is established with Dr Flores so no records were sent . [facility] appt information was mailed to patient [...] Specialty Gastroentero logy General Notes Jolie Gonzalez [facility] 09/30 03:23:14 PM >Called Dr Campos [...] Date Provider Diagnosis Quinton Callahan III, MD [address] [place] [address] [address], [place] [phone] 09/30/2024 Quinton Callahan Chronic osteomyeliti s of [...] endoscopy and was referred back to his die equipment operator, Dr. Quinton Campos. 09/30/2024 Tobacco dependence (ICD-10 [...] Cephalexin 500 MG TAKE 1 CAPSULE BY [facility] TWICE DAILY Oral Albuterol Sulfate HFA [...] OV no tests Provider Name:Quinton Callahan , 01/06/2025 02:30:00 PM, [address] [place] [address] [address], [place], [phone], Provider Name:Quinton Callahan , 12/08/2025 02:30:00 PM, [address] [place] [address] [address], [place], [address], Progress Notes * Ana ENCINAShDOB:1960 (64 yo M)Acc No.[id number]:09/30/2024 Progress Notes Patient: Zan TONG Provider: Angeles Callahan MD :1960 A ge:64 Y S ex:Male Date:09/30/2024 Address:[address] [place] [id number] Subjective: * Chief Complaints: * R ecurrent [...] esophagus and was referred back to his die equipment operator today. He umbilical hernia is not symptomatic.? He continues to smoke 17 cigarettes a day and is reducing this number. He had a cyst removed from his back by the medical esthetician. Questions H ave you had any new [...] after dental work 1986upper endoscopy and colonoscopy, [facility], Dr. Quinton Campos 2009upper endoscopy, [facility], Dr. Quinton Campos, Palmer's esophagus 2014arteriogram right lower extremity 05/2019Right nypyl-cbc-llzh amputation 02-04-2024 * Hospitalization/Major Diagno stic Procedure: [...] healthy grandchildren. One of his siblings has Iilkxqc-Rpwit-Cczqx disease. 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 He was born in [place], [place]. He came to [place] in 1984. He is with 6 children. He has 11 grandchildren. He is a of [employer]. He trained at [employer] and served in [employer]. * Medications: T akingMetoprolol Succinate ER 25 [...] endoscopy and was referred back to his die equipment operator, Dr. Quinton Campos. 8 . T obacco [...] 09/30/2024 Generated for Tristen bustamante/Jai/Henrry on: 1 04:49 PM EDT History and Physical Notes * [...]
--- OUTSIDE RECORDS SUMMARY | 2024-10-15 13:00 | XMS_ITS ---
Author Organization Quinton Callahan III, MD Address [address] [place] [address] [place] [address] Care Team Providers Care Outside Parts Salesman Name Role Phone Dr. Quinton Callahan III Primary Care Provider [phone] REASON FOR VISIT Annual Exam Social History Sex Assigned At : Social History Observation Description Sex Assigned At Male Encounters Encounter Location Date Provider Diagnosis Quinton Callahan III, MD [address] [place] [address] [place] [address] 10/15/2024 Quinton Callahan Plan Of Treatment Next Appt Details Provider Name:Quinton Callahan , 01/06/2025 02:30:00 PM, [address] [place] [address] [place], [address], Provider Name:Quinton Callahan , 12/08/2025 02:30:00 PM, [address] [place] [address] [place], [address], Progress Notes * Ana ENCINAShDOB:1960 (64 yo M)Acc No.[id number]:10/15/2024 Progress Notes Patient: Zan TONG Provider: Angeles Callahan MD :1960 A ge:64 Y S ex:Male Date:10/15/2024 Address:[address] [place] [address], [address] [place] [id number] Subjective: * Chief Complaints: * 1 . [...] 10/15/2024 Generated for Tristen bustamante/Jai/Henrry on: 1 04:49 PM EDT
--- OUTSIDE RECORDS SUMMARY | 2024-10-29 10:30 | XMS_ITS ---
Author Organization Quinton Callahan III, MD Address [address] [place] [address] [place] [address] Care Team Providers Care Regulatory Leader Name Role Phone Dr. Quinton Callahan III [...] Provider Diagnosis Quinton Callahan III, MD [address] [place] [address] [place] [address] 10/29/2024 Quinton Callahan Chronic osteomyeliti s of [...] endoscopy and was referred back to his professional services specialist, Dr. Quinton Campos. 10/29/2024 Chronic obstructive pulmonary [...] Annual Exam, OV Provider Name:Quinton Callahan , 01/06/2025 02:30:00 PM, [address] [place] [address] KAILYN JURADO, [place], [address], Provider Name:Quinton Callahan , 12/08/2025 02:30:00 PM, [address] [place] [address] KAILYN JURADO, [place], [address], Progress Notes * Ana ENCINAShDOB:1960 (64 yo M)Acc No.[id number]:10/29/2024 Patient: Zan TONG Provider: Angeles Callahan MD :1960 A ge:64 Y S ex:Male Date:10/29/2024 Address:[address] [place], [place] [phone] Subjective: * Chief Complaints: * R ight [...] after dental work 1986upper endoscopy and colonoscopy, [facility], Dr. Quinton Campos 2009upper endoscopy, [facility], Dr. Quinton Campos, Palmer's esophagus 2014arteriogram right lower extremity 05/2019Right pkxts-rkk-hvfl amputation 02-04-2024 * Hospitalization/Major Diagno stic Procedure: Blaise kaufman Past Hospitalization * Family History: F ather: [...] healthy grandchildren. One of his siblings has Eafgjgl-Rptcv-Zlshh disease. One of his children has had an appendectomy. A paternal grandfather of lung cancer and a paternal grandmother of pancreatic cancer. * Social History: T obacco Use: T obacco Use/Smoking P leora is a c urrent smoker H ow often do you smoke cigarettes? e very day H ow many cigarettes a day do you smoke? 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 He was born in [place], [place]. He came to [place] in 1984. He is with 6 children. He has 11 grandchildren. He is a of [employer]. He trained at [employer] and served in [employer]. * Medications: T akingAtorvastatin Calcium 10 MG [...] endoscopy and was referred back to his professional services specialist, Dr. Quinton Campos. 5 . C [...] MD Date: 0 10/29/2024 Generated for Tristen bustamante/Jai/Allysonitting on: 1 04:47 PM EDT History and [...]
--- OUTSIDE RECORDS SUMMARY | 2024-12-02 11:00 | XMS_ITS ---
Author Organization Quinton Callahan III, MD Address [address] [place] [address] Care Team Providers Care Solderer Barrel Ribs Name Role Phone Dr. Quinton Callahan III Primary Care Provider [phone] Allergies Allergen (clinical drug ingredient) Drug/Non Drug [...] Date Provider Diagnosis Quinton Callahan III, MD [address] [place] [address] [place] [address] 12/02/2024 Quinton Callahan Chronic osteomyeliti s of [...] I today discussed the possibility of an wdwiw-fjd-jdhr amputation and what it would be like [...] endoscopy and was referred back to his branch logistics supervisor , Dr. Quinton Campos. 12/02/2024 Benign prostatic [...] Provider Name:Quinton Callahan , 01/06/2025 02:30:00 PM, [address] [place] [address] [address], [place], [address], Provider Name:Quinton Callahan , 12/08/2025 02:30:00 PM, [address] [place] [address] [place], [address], Progress Notes * Ana ENCINAShDOB:1960 (64 yo M)Acc No.[id number]:12/02/2024 Progress Notes Patient: Chuy MCCULLOUGHGERALDZan Provider: Angeles Callahan MD :1960 A ge:64 Y S ex:Male Date:12/02/2024 Address:[address] [place] [address], [place] [address], [id number] Subjective: * Chief [...] likely he is going to need an uplqu-utx-vvar amputation but we will see what infectious disease service first. He also reports that he was bending forward his wheelchair to pickling operator something on the floor he felt a snap in the right side of his chest. Examination today the costochondral margin of one of the ribs severely tender to palpation. It is likely he disrupted this joint with The unusual stress. He declined the offer of an x-ray. We'll contiinue with current therapy. Also, he is due for colonoscopy with Dr. Quinton Campos at [facility]. This is currently being arranged. PHQ-9 [...] after dental work 1986upper endoscopy and colonoscopy, [facility], Dr. Quinton Campos 2009upper endoscopy, [facility], Dr. Quinton Campos, Palmer's esophagus 2014arteriogram right lower extremity 05/2019Right wbnwf-wcz-bxve amputation 02-04-2024 * Hospitalization/Major Diagno stic Procedure: [...] healthy grandchildren. One of his siblings has Mgkjaxh-Rwggz-Lxbpe disease. 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 He was born in [place], [place]. He came to [place] in 1984. He is with 6 children. He has 11 grandchildren. He is a of [employer]. He trained at [place] and served in [employer]. * Medications: T akingAtorvastatin Calcium 10 MG [...] I today discussed the possibility of an baezl-wwz-iijr amputation and what it would be like walking. 3 . B arrett's esophagus determined by endoscopy - K22.70 N otes :He is due for an endoscopy and was referred back to his branch logistics supervisor, Dr. Quinton Campos. 4 . B enign [...] MD Date: Generated for Tristen bustamante/Jai/eTransmitting on: 04:44 PM EDT History and Physical Notes * [...]
[2024-12-16 13:06] VITALS: BMI 25.5
--- NOTE | 2024-12-16 13:06 | A.OFFVIS_ITS ---
Vital Signs 12/16/24 13:06 Height 6 ft Weight 188 lb BMI 25.5 Intake Visit Reasons: 2 week R stump check Intake Note: 2 week wound check Left BKA non healing revision. Pt seen by ID on 12/12/24, pt was given 3 mo of Abx. Pt states he started Augustina and aquacel on the wound QD. Pt states drainage is minimal. VNA twice per week. Nail Welter Required: No Accompanied by: Self / Same As Patient Allergies No Known Allergies Allergy (Verified 12/16/24 13:08) HPI HPI 2 week R stump check: Details: The patient is a 64-year-old male presenting with a routine follow-up for the revision of the right below-knee amputation and wound management. The patient underwent a revision of the right below-knee amputation on October 10, 2024, and has been receiving care from visiting nurses. He reports that the wound appears to be improving. The patient was prescribed doxycycline for four months by , with a follow-up scheduled in three months. He noted that upon discontinuation of the previous antibiotic, the wound would become inflamed and painful, indicating a recurring infection. The wound currently has a layer of collagen on top, which typically dissolves into the wound. The patient has been advised to rough up the wound to encourage bleeding, which is beneficial for healing. He now presents for follow-up with wound check. [facility] Medical History Peripheral arterial disease Below-knee amputation of right lower extremity Osteomyelitis Krish angina Left bundle branch block Bakers cyst Nicotine dependence, cigarettes, uncomplicated Arthritis BPH (benign prostatic hyperplasia) Elevated cholesterol Complex regional pain syndrome i of right lower limb S/P angiogram of extremity (07/18/23) Atrial fibrillation History of Palmer's esophagus Splenic vein thrombosis History of femoral angiogram GERD (gastroesophageal reflux disease) COPD (chronic obstructive pulmonary disease) Surgical History Hx of BKA History of tonsillectomy Hx of oral surgery Hx of tracheostomy History of esophagogastroduodenoscopy (EGD) H/O colonoscopy Social History Household Members: Family and Children Household Members Other:: Son, son girlfriend, grandbaby Housing: Apartment Housing Other:: 3 stairs to climb Are you a primary career coordinator to a significant other at home: No Do you presently have visiting nurse or other home services: Yes Comment: Dr Knott made aware of absent pulse and sensation in right foot Patient Tobacco Use Status: Current everyday Tobacco user Tobacco use type: Cigarette Cigarette Packs Per Day: 1 Cigarettes Per Day: 20.0 Years Smoked: 50 e-Cigarette/Vaping Use: Never Used Second Hand Smoke Exposure: No Substance Use Type: Marijuana Advance Directives Date on File: 01/17/24 service: Yes Review of Systems Const All systems reviewed & are unremarkable except as noted in HPI and below Reports no additional complaints ENT Reports Normal hearing present Card Denies chest pain, Denies chest pain at rest, Denies chest pain with activity and Denies pedal edema Resp Denies cough GI Denies abdominal pain Musc Denies abnormal gait, Denies muscle cramps and Denies radiating pain into limb Skin/Breast Denies skin ulcer and Denies wounds Neuro Reports Normal hearing present and Denies abnormal gait Psych Reports no additional complaints Physical Exam Vital Signs: BMI result Body Mass Index 25.5 Const General: cooperative, healthy appearing and comfortable Orientation/consciousness: oriented to person, oriented to place and oriented to time HEENT Head: Yes normal to inspection Neck Neck: Yes normal visual inspection Carotids: no bruits Chest Chest palpation & inspection: normal inspection of the chest Resp Effort & Inspection: normal respiratory effort and able to speak in complete sentences Auscultation: clear to auscultation bilaterally, no crackles, no rales, no rhonchi and no wheezes Cardio Rate: regular rate Rhythm: regular rhythm Heart sounds: S1 normal heart sound present and S2 normal heart sound present Bruits: no carotid bruits Peripheral pulses: Peripheral pulses 2+ throughout GI Inspection: Yes normal to inspection Skin Other: Wound measures 4 x 1 x 1.8 cm. Underlying tissue appears to be relatively clean with good granulation base. Wounds: amputation site (Nonhealing incision) Hair: normal Neuro General: oriented to person, oriented to place and oriented to time Cranial nerves: Yes CN's II-XII intact bilaterally and Yes Normal hearing present Cognition (Neuro): normal cognition Motor exam (neuro): 5/5 motor strength present throughout Extrem Other: venous exam: No significant superficial varicosities or spider telangiectasias, minimal edema General: No clubbing, No cyanosis and No edema Psych Appearance: grossly normal Mental Status: mental status grossly normal Speech and movement: Normal speech and movement present Assessment & Plan Assessment & Plan (1) Peripheral arterial disease: Code(s): I73.9 - Peripheral vascular disease, unspecified Category: Medical Plan: During the visit, we discussed the ongoing management of the wound following the revision of the right below-knee amputation. The patient is to continue doxycycline for four months, with a follow-up in three months to evaluate the wound's healing progress. We also considered the potential use of a skin s ubstitute if the wound does not heal as expected. Plan Patient was informed and verbally consented to the use of an ambient scribe for clinic note documentation during this visit. Coding Level of Care Code Est Pt Level 3 (64176) Diagnoses Peripheral arterial disease I73.9
--- OUTSIDE RECORDS SUMMARY | 2024-12-16 16:45 | XMS_ITS | Encounter Summary ---
Author Organization [facility] Address [address] [place] [address] [place] [address] Phone Care Team Providers Care Cardiology Nurse Name Role Phone Quinton Callahan MD Primary Care Provider +1- [phone] Encounter Details Date Type Department Care Team (Late st Contact Info) Description 12/08/2023 Procedure Pass [facility] EKG [address] [place] [address] Social History Tobacco Use Types Packs/Day Years [...] on filedocumented in this encounter Care Teams Cardiology Nurse Relationship Specialty Start Date End Date Quinton Callahan MD [address] [place] [address] [place] [address] PCP - General Medical Oncology 11/23/23 documented as of this encounter Additional Source Comments The information contained in this document represents components of the legal health record. It is not the complete legal health record.[facility]
--- OUTSIDE RECORDS SUMMARY | 2024-12-16 16:45 | XMS_ITS | Encounter Summary ---
Author Organization [facility] Address [address] [place] [address] [place] [address] Phone Care Team Providers Care Optometric Assistant Name Role Phone Quinton Callahan MD Primary Care Provider +1- [phone] Encounter Details Date Type Department Care Team (Late st Contact Info) Description 12/02/2023 Procedure Pass [facility] Periop [address] [place] [address] Social History Tobacco Use Types Packs/Day Years [...] on filedocumented in this encounter Care Teams Optometric Assistant Relationship Specialty Start Date End Date Quinton Callahan MD [address] [place] [address] [place] [address] PCP - General Medical Oncology 11/23/23 documented as of this encounter Additional Source Comments The information contained in this document represents components of the legal health record. It is not the complete legal health record.[facility]
--- OUTSIDE RECORDS SUMMARY | 2024-12-16 16:46 | XMS_ITS | Encounter Summary ---
Author Organization [facility] Address [address] [place] [address] [place] [phone] Phone Care Team Providers Care Purse Maker Name Role Phone Quinton Callahan MD Primary Care Provider +1- [phone] Encounter Details Date Type Department Care Team (Late st Contact Info) Description 11/28/2023 Procedure Pass [facility] [address] [place] [address] Social History Tobacco Use Types Packs/Day Years [...] on filedocumented in this encounter Care Teams Purse Maker Relationship Specialty Start Date End Date Quinton Callahan MD [address] [place] [address] [place] [address] PCP - General Medical Oncology 11/23/23 documented as of this encounter Additional Source Comments The information contained in this document represents components of the legal health record. It is not the complete legal health record.[facility]
--- OUTSIDE RECORDS SUMMARY | 2024-12-16 16:46 | XMS_ITS | Patient Health Record ---
Author Organization Quinton Callahan III, MD Address [address] [place] [address] Care Team Providers Care Coroner Transport Technician Name Role Phone Dr. Quinton Callahan III Primary Care Provider [phone] Allergies Allergen (clinical drug ingredient) Drug/Non Drug Allergy documented on EMR Reaction Allergy Type Onset Date Status No Known Drug Allergy Unknown Drug Allergy Active No Known Food Allergy Unknown Drug Allergy Active Results Component Value Reference Range Notes Cancelled Chem Reviewed date:01/07/2024 01:28:15 PM Interpretation: Performing Lab:[facility], [address] [place] [address] Notes/Report: Cancelled Chem SEE NOTE NO SPECIMEN R ECEIVED FOR BUN AND CREAT US arterial duplex LE RT Reviewed date:01/24/2024 07:41:27 AM Interpretation: Performing Lab: Notes/Report: [address] [address] Ultrasound Report Signed Patient: Zan Encinas MR#: [id number] : 1960 Acct:[id number] Age/Sex: 63 / M ADM Date: 01/01/24 Loc: HO.US Attending Dr: Bimal Knott MD Ordering Physician: Sera Saxena PA-C Date of Service: 01/01/24 Procedure(s): US arterial duplex LE RT Accession Number(s): [id number] cc: Quinton Callahan MD; Sera Saxena PA-C [...] Coleman Chaidez MD 01/23/2024 01:03 PM [facility] [place], [place] Dictated By: Coleman Chaidez MD Signed By: <Electronically signed by Coleman Chaidez MD in OV> 01/23/24 1303 DD/ 1430 TD/TT: 01/01/24 1517 Wage Analyst: [address] [address] Ultrasound Report Signed Patient: Zan Encinas MR#: [id number] : 1960 Acct:[id number] Age/Sex: 63 / M ADM Date: 01/01/24 Loc: HO.US Attending Dr: Bimal Knott MD Ordering Physician: Sera Saxena PA-C Date of Service: 01/01/24 Procedure(s): US arterial duplex LE RT Accession Number(s): [id number] cc: Quinton Callahan MD; Sera Saxena PA-C [...] Coleman Chaidez MD 01/23/2024 01:03 PM [facility] [place] [place] Dictated By: Coleman Chaidez MD Signed By: <Electronically signed by Coleman Chaidez MD in OV> 01/23/24 1303 DD/ 1430 TD/TT: 01/01/24 1517 Wage Analyst: Complete Blood Count Auto Di ff Reviewed date:01/07/2024 01:28:15 PM Interpretation: Performing Lab:[address] [address] Notes/Report: White Blood Count 8.2 4.8-10.8 X10*3/uL [...] Drip Reviewed date:01/08/2024 08:33:39 AM Interpretation: Performing Lab:[facility], [address] [place] [address] Notes/Report: PTT Heparin Drip 33.9 53-77.9 SEC For information regarding the monitoring of heparin therapy, please refer to Pharmacy. Fibrinogen Reviewed date:01/08/2024 08:33:39 AM Interpretation: Performing Lab:[facility], [address] [place] [address] Notes/Report: Fibrinogen 465 259-690 MG/DL Blood Urea Nitrogen Reviewed date:01/07/2024 01:28:15 PM Interpretation: Performing Lab:[facility], [address] [place] [address] Notes/Report: Blood Urea Nitrogen 16 9-16 mg/dL Creatinine Reviewed date:01/07/2024 01:28:15 PM Interpretation: Performing Lab:[address] [address] Notes/Report: Creatinine 0.81 0.5-1.4 mg/dL Creatinine Clr Calc Pharmacy 99.7 eGFR (calculated from the MDRD study equation) and eCrCl (calculated from the Cockcroft-Gault equation) are based on different parameters and may not yield comparable results. If eCrCl result is absurd, please check patient's height/weight. Estimated Glomerular Filt Rate > 60 NOTE: For -Citizen Of [place] individuals, multiply the result by 1.210. Chronic Kidney Disease: Estimated GFR < 60 mL/min/1.73m2 Severe Kidney Disease: Estimated GFR < 15 mL/min/1.73m2 ACT LR Reviewed date:01/16/2024 08:51:12 AM Interpretation: Performing Lab:[address] [address] Notes/Report: out of range low [id number] HO.MARUSA 0906 HO.MULVEC Fibrinogen Reviewed date:01/08/2024 08:33:39 AM Interpretation: Performing Lab:[address] [address] Notes/Report: Fibrinogen 445 259-690 MG/DL Complete Blood Count no Diff Reviewed date:01/10/2024 09:47:57 AM Interpretation: Performing Lab:[facility], [address] [place] [address] Notes/Report: White Blood Count 28.7 4.8-10.8 X10*3/uL [...] ff Reviewed date:01/08/2024 08:33:39 AM Interpretation: Performing Lab:[facility], [address] [place] [address] Notes/Report: White Blood Count 10.1 4.8-10.8 X10*3/uL [...] gy Reviewed date:01/08/2024 02:05:08 PM Interpretation: Performing Lab:[facility], [address] [place] [address] Notes/Report: Hold Lav - Possible Hematology SEE NOTE Specimen will be held untested for 8 hours. Call Hematology if testing is desired. PTT Heparin Drip Reviewed date:01/08/2024 08:33:39 AM Interpretation: Performing Lab:[facility], [address] [place] [address] Notes/Report: PTT Heparin Drip 40.9 53-77.9 SEC For information regarding the monitoring of heparin therapy, please refer to Pharmacy. Fibrinogen Reviewed date:01/08/2024 08:33:39 AM Interpretation: Performing Lab:[facility], [address] [place] [address] Notes/Report: Fibrinogen 432 259-690 MG/DL Basic Metabolic Panel Reviewed date:01/08/2024 08:33:39 AM Interpretation: Performing Lab:[facility], [address] [place] [address] Notes/Report: Sodium 138 135-145 mmol/L Potassium 3.8 [...] Phosphorus Reviewed date:01/08/2024 08:33:39 AM Interpretation: Performing Lab:[address] [address] Notes/Report: Phosphorus 2.9 2.7-4.5 mg/dL Magnesium Reviewed date:01/08/2024 08:33:39 AM Interpretation: Performing Lab:[address] [address] Notes/Report: Magnesium 1.8 1.6-2.6 mg/dL Albumin Level Reviewed date:01/08/2024 08:33:39 AM Interpretation: Performing Lab:[address] [address] Notes/Report: Albumin Level 3.2 3.5-5.0 g/dL ACT LR Reviewed date:01/11/2024 01:49:27 PM Interpretation: Performing Lab:[address] [address] Notes/Report: 109 [id number] HO.MARUSA 0846 HO.MULVEC ACT 109 79-173 Celite s Results are converted to a reference Celite ACT value in seconds. A reference interval is unavailable for ACT. Kathy Flores Reviewed date:01/08/2024 02:05:08 PM Interpretation: Performing Lab:[address] [address] Notes/Report: Kathy Flores See Note Specimen held untested for 24 hours; Call to request Chemistry testing. SLIDE REVIEW Reviewed date:01/08/2024 02:05:08 PM Interpretation: Performing Lab:[address] [address] Notes/Report: SLIDE REVIEW VERIFIED Type and Screen Reviewed date:01/11/2024 01:49:26 PM Interpretation: Performing Lab:[facility], [address] [place] [address] Notes/Report: Results at Issue Units as of [...] Cells Reviewed date:01/11/2024 01:49:26 PM Interpretation: Performing Lab:[facility], [address] [place] [address] Notes/Report: Red Blood Cells [id number] ON RC Red Blood Cells TRANSFUSED 01/09/24 0929 Red Blood Cells [id number] OP RC Red Blood Cells TRANSFUSED 01/09/24 1520 Red Blood Cells [id number] OP RC Red Blood Cells TRANSFUSED 01/10/24 0154 Red Blood Cells [id number] OP RC Red Blood Cells TRANSFUSED 01/10/24 1938 Red Blood Cells [id number] OP RC Red Blood Cells TRANSFUSED 01/10/242025 Red Blood Cells [id number] OP RC Red Blood Cells TRANSFUSED 01/10/24 2156 Red Blood Cells [id number] OP RC Red Blood Cells TRANSFUSED 01/10/242025 Red Blood Cells [id number] OP RC Red Blood Cells TRANSFUSED 01/11/24 0159 Red Blood Cells [id number] OP RC Red Blood Cells TRANSFUSED 01/11/24 0159 Arterial Blood Gases - POC Reviewed date:01/08/2024 02:05:08 PM Interpretation: Performing Lab:[facility], [address] [place] [address] Notes/Report: ABG pH 7.42 7.35-7.45 METER #: [id number] additional_comment: Cbgreavet ctrbpavlova ABG pCO2 34 32-45 mmHg METER #: [id number] additional_comment: Cbgreavet ctrbpavlova ABG pO2 95 83-108 mmHg METER #: [id number] additional_comment: Cbgreavet ctrbpavlova ABG Base Excess -1.2 METER #: [id number] additional_comment: Cbgreavet ctrbpavlova ABG HCO3 22 22-26 mmol/L METER #: [id number] additional_comment: Cbgreavet ctrbpavlova ABG O2 % Saturation 99.0 METER #: [id number] additional_comment: Cbgreavet ctrbpavlova Pheresis Platelets Reviewed date:01/11/2024 01:49:27 PM Interpretation: Performing Lab:[facility], [address] [place] [address] Notes/Report: Pheresis Platelets [id number] OP PHPLT Pheresis Platelets TRANSFUSED 01/11/24 0133 Hold Green Gel Reviewed date:01/08/2024 02:05:08 PM Interpretation: Performing Lab:[facility], [address] [place] [address] Notes/Report: Hold Green Gel See Note Specimen held untested for 24 hours; Call to request Chemistry testing. Fresh Frozen Plasma Reviewed date:01/11/2024 01:49:27 PM Interpretation: Performing Lab:[facility], [address] [place] [address] Notes/Report: Fresh Frozen Plasma [id number] AP FFP Fresh Frozen Plasma TRANSFUSED 01/11/24 0159 Fresh Frozen Plasma [id number] OP FFP Fresh Frozen Plasma TRANSFUSED 01/10/[address] abdomen pelvis w con Reviewed date:01/08/2024 02:05:08 PM Interpretation: Performing Lab: Notes/Report: [address] [address] [address] Scan Report Signed Patient: Zan Encinas MR#: [id number] : 1960 Acct:[id number] Age/Sex: 63 / M ADM Date: 01/07/24 Loc: [facility] 255-[address]: Bimal Knott MD Ordering Physician: Sawyer Case MD Date of Service: 01/08/24 Procedure(s): CT abdomen pelvis w IV con Accession Number(s): [id number] cc: Quinton Callahan MD; Sawyer Case MD [...] right superficial femoral vein. 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 OSSEOUS STRUCTURES: Multilevel thoracolumbar [...] Theo Stern MD 01/08/2024 12:21 PM [facility] [place], [place] Dictated By: Theo Lagunas MD Signed By: <Electronically signed by Theo Steven MD in OV> 01/08/24 1221 DD/ 1105 TD/TT: 01/08/24 1125 Wage Analyst: [place] [address] [address] Scan Report Signed Patient: Zan Encinas MR#: [id number] : 1960 Acct:[id number] Age/Sex: 63 / M ADM Date: 01/07/24 Loc: [facility] 255-[address]: Bimal Knott MD Ordering Physician: Sawyer Case MD Date of Service: 01/08/24 Procedure(s): CT abd omen pelvis w IV con Accession Number(s): [id number] cc: Quinton Callahan MD; Sawyer Case MD [...] right superficial femoral vein. 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 OSSEOUS STRUCTURES: Multilevel thoracolumbar [...] 01/08/24 1221 DD/ 1105 TD/TT: 01/08/24 1125 Wage Analyst: Fibrinogen Reviewed date:01/08/2024 08:33:39 AM Interpretation: Performing Lab:[facility], [address] [place] [address] Notes/Report: Fibrinogen 441 259-690 MG/DL Complete Blood Count Auto Di ff Reviewed date:01/08/2024 02:05:08 PM Interpretation: Performing Lab:[facility], [address] [place] [address] Notes/Report: White Blood Count 20.0 4.8-10.8 X10*3/uL [...] Drip Reviewed date:01/08/2024 02:05:08 PM Interpretation: Performing Lab:[facility], [address] [place] [address] Notes/Report: PTT Heparin Drip > 200.0 53-77.9 SEC Results of PTT-HD called to and read back by MARIELA on 01/08/24 at 1155 by FROY. For information regarding the monitoring of heparin therapy, please refer to Pharmacy. Basic Metabolic Panel Reviewed date:01/10/2024 09:47:57 AM Interpretation: Performing Lab:[facility], [address] [place] [address] Notes/Report: Sodium 134 135-145 mmol/L Potassium 4.9 [...] Phosphorus Reviewed date:01/10/2024 09:47:57 AM Interpretation: Performing Lab:[facility], [address] [place] [address] Notes/Report: Phosphorus 4.1 2.7-4.5 mg/dL Magnesium Reviewed date:01/10/2024 09:47:57 AM Interpretation: Performing Lab:[facility], [address] [place] [address] Notes/Report: Magnesium 1.9 1.6-2.6 mg/dL Complete Blood Count Auto Di ff Reviewed date:01/10/2024 09:47:57 AM Interpretation: Performing Lab:[facility], [address] [place] [address] Notes/Report: White Blood Count 21.8 4.8-10.8 X10*3/uL [...] REVIEW Reviewed date:01/10/2024 09:47:57 AM Interpretation: Performing Lab:[facility], [address] [place] [address] Notes/Report: SLIDE REVIEW VERIFIED ACT LR Reviewed date:01/11/2024 01:49:27 PM Interpretation: Performing Lab:[facility], [address] [place] [address] Notes/Report: 203 [id number] HOASHLEY 0855 mulvec ACT 203 79-173 Celite s Results are converted to a reference Celite ACT value in seconds. A reference interval is unavailable for ACT. Complete Blood Count Auto Di ff Reviewed date:01/10/2024 09:47:57 AM Interpretation: Performing Lab:[facility], [address] [place] [address] Notes/Report: White Blood Count 16.7 4.8-10.8 X10*3/uL [...] gy Reviewed date:01/10/2024 09:47:57 AM Interpretation: Performing Lab:[address] [address] Notes/Report: Hold Lav - Possible Hematology SEE NOTE Specimen will be held untested for 8 hours. Call Hematology if testing is desired. Prothrombin Time INR Reviewed date:01/10/2024 09:47:57 AM Interpretation: Performing Lab:[facility], [address] [place] [address] Notes/Report: Prothrombin Time 11.5 10.9-12.4 SEC INTERNATIONAL [...] Drip Reviewed date:01/10/2024 09:47:57 AM Interpretation: Performing Lab:[address] [address] Notes/Report: PTT Heparin Drip 28.1 53-77.9 SEC For information regarding the monitoring of heparin therapy, please refer to Pharmacy. Basic Metabolic Panel Reviewed date:01/10/2024 09:47:57 AM Interpretation: Performing Lab:[address] [address] Notes/Report: Sodium 136 135-145 mmol/L Potassium 4.5 [...] Phosphorus Reviewed date:01/10/2024 09:47:57 AM Interpretation: Performing Lab:[address] [address] Notes/Report: Phosphorus 4.0 2.7-4.5 mg/dL Magnesium Reviewed date:01/10/2024 09:47:57 AM Interpretation: Performing Lab:[address] [address] Notes/Report: Magnesium 1.9 1.6-2.6 mg/dL Albumin Level Reviewed date:01/10/2024 09:47:57 AM Interpretation: Performing Lab:[address] [address] Notes/Report: Albumin Level 3.2 3.5-5.0 g/dL SLIDE REVIEW Reviewed date:01/10/2024 09:47:57 AM Interpretation: Performing Lab:[address] [address] Notes/Report: SLIDE REVIEW VERIFIED Complete Blood Count Auto Di ff Reviewed date:01/10/2024 09:47:57 AM Interpretation: Performing Lab:[address] [address] Notes/Report: White Blood Count 10.8 4.8-10.8 X10*3/uL [...] Drip Reviewed date:01/10/2024 09:47:57 AM Interpretation: Performing Lab:[facility], [address] [place] [address] Notes/Report: PTT Heparin Drip 34.2 53-77.9 SEC For information regarding the monitoring of heparin therapy, please refer to Pharmacy. Complete Blood Count Auto Di ff Reviewed date:01/10/2024 09:47:57 AM Interpretation: Performing Lab:[facility], [address] [place] [address] Notes/Report: White Blood Count 8.4 4.8-10.8 X10*3/uL [...] Panel Reviewed date:01/10/2024 09:47:57 AM Interpretation: Performing Lab:[facility], [address] [place] [address] Notes/Report: Sodium 135 135-145 mmol/L Potassium 4.5 [...] Phosphorus Reviewed date:01/10/2024 09:47:57 AM Interpretation: Performing Lab:[facility], [address] [place] [address] Notes/Report: Phosphorus 3.0 2.7-4.5 mg/dL Magnesium Reviewed date:01/10/2024 09:47:57 AM Interpretation: Performing Lab:[facility], [address] [place] [address] Notes/Report: Magnesium 2.2 1.6-2.6 mg/dL PTT Heparin Drip Reviewed date:01/10/2024 09:47:57 AM Interpretation: Performing Lab:[facility], [address] [place] [address] Notes/Report: PTT Heparin Drip 55.2 53-77.9 SEC For information regarding the monitoring of heparin therapy, please refer to Pharmacy. Complete Blood Count Auto Di ff Reviewed date:01/10/2024 09:47:57 AM Interpretation: Performing Lab:[facility], [address] [place] [address] Notes/Report: White Blood Count 9.2 4.8-10.8 X10*3/uL [...] Hematocrit Reviewed date:01/11/2024 01:49:27 PM Interpretation: Performing Lab:[address] [address] Notes/Report: Hemoglobin 3.3 14.0-18.0 g/dl Results of HGB called to and read back by JONAS on 01/10/24 at 1959 by BORIS. Hematocrit 9.9 42.0-52.0 % Results of HCT called to and read back by JONAS on 01/10/24 at 2001 by BORIS. Pathologist Review - CBC Reviewed date:01/11/2024 01:49:26 PM Interpretation: Performing Lab:[facility], [address] [place] [address] Notes/Report: Pathologist Review - CBC SEE NOTE Normochromic normocytic anemia. - Javi Farias M.D. Pathology Prothrombin Time INR Reviewed date:01/10/2024 09:47:57 AM Interpretation: Performing Lab:[address] [address] Notes/Report: Prothrombin Time 12.1 10.9-12.4 SEC INTERNATIONAL [...] Drip Reviewed date:01/10/2024 09:47:57 AM Interpretation: Performing Lab:[facility], [address] [place] [address] Notes/Report: PTT Heparin Drip 44.5 53-77.9 SEC For information regarding the monitoring of heparin therapy, please refer to Pharmacy. Comprehensive Met. Panel Reviewed date:01/11/2024 01:49:27 PM Interpretation: Performing Lab:[facility], [address] [place] [address] Notes/Report: Sodium 135 135-145 mmol/L Potassium 4.9 [...] Panel Reviewed date:01/10/2024 09:47:57 AM Interpretation: Performing Lab:[facility], [address] [place] [address] Notes/Report: Sodium 136 135-145 mmol/L Potassium 4.1 [...] Acid Reviewed date:01/11/2024 01:49:27 PM Interpretation: Performing Lab:[facility], [address] [place] [address] Notes/Report: Lactic Acid 7.8 0.5-2.0 mmol/L Critical value for test(s): LACTA Results called to and read back by:VIKRAM Person calling: TANG Date:01-10-2024 Time:2121 Phosphorus Reviewed date:01/10/2024 09:47:57 AM Interpretation: Performing Lab:[facility], [address] [place] [address] Notes/Report: Phosphorus 2.8 2.7-4.5 mg/dL Magnesium Reviewed date:01/10/2024 09:47:57 AM Interpretation: Performing Lab:[facility], [address] [place] [address] Notes/Report: Magnesium 2.0 1.6-2.6 mg/dL Albumin Level Reviewed date:01/10/2024 09:47:57 AM Interpretation: Performing Lab:[facility], [address] [place] [address] Notes/Report: Albumin Level 3.5 3.5-5.0 g/dL Lactic Acid-LAB USE ONLY Reviewed date:01/11/2024 01:49:27 PM Interpretation: Performing Lab:[facility], [address] [place] [address] Notes/Report: Lactic Acid-LAB USE ONLY 1.9 0.5-2.0 mmol/L Venous Blood Gases - POC Reviewed date:01/11/2024 01:49:27 PM Interpretation: Performing Lab:[facility], [address] [place] [address] Notes/Report: VBG pH 7.42 7.32-7.43 METER #: [id number] VBG pCO2 25 METER #: [id number] 0250C VBG pO2 76 METER #: [id number] 0250C VBG Base Excess -6.7 METER #: [id number] VBG HCO3 16 22-26 mmol/L METER #: [id number] 0250C VBG O2 % Saturation TNP Hold Green Gel Reviewed date:01/11/2024 01:49:27 PM Interpretation: Performing Lab:[facility], [address] [place] [address] Notes/Report: Hold Green Gel See Note Specimen held untested for 24 hours; Call to request Chemistry testing. CT abdomen pelvis w con Reviewed date:01/11/2024 01:49:27 PM Interpretation: Performing Lab: Notes/Report: [address] [address] [address] Scan Report Signed Patient: Zan Encinas MR#: [id number] : 1960 Acct:[id number] Age/Sex: 63 / M ADM Date: 01/07/24 Loc: .[facility] 255-[address]: Bimal Knott MD Ordering Physician: Som Vela NP Date of Service: 01/10/24 Procedure(s): CT abdomen pelvis w IV con Accession Number(s): [id number] cc: Quinton Callahan MD; oSm Vela NP EXAMINATION: CT ABDOMEN AND PELVIS [...] Jarret Ferrara MD 01/10/2024 10:00 PM [facility] [place], [place] Dictated By: Jarret Ferrara MD Signed By: <Electronically signed by Jarret Ferrara MD in OV> 01/10/242199 DD/ 21 TD/TT: 01/10/242021 Wage Analyst: [place] [address] [address] Scan Report Signed Patient: Zan Encinas MR#: [id number] : 1960 Acct:[id number] Age/Sex: 63 / M ADM Date: 01/07/24 Loc: .[facility] 255-[address]: Bimal Knott MD Ordering Physician: Som Vela NP Date of Service: 01/10/24 Procedure(s): CT abd omen pelvis w IV con Accession Number(s): [id number] cc: Quinton Callahan MD; Som Vela NP [...] Jarret Ferrara MD 01/10/2024 10:00 PM [facility] [place] [place] Dictated By: Jarret Ferrara MD Signed By: <Electronically signed by Jarret Ferrara MD in OV> 01/10/242199 DD/ 21 TD/TT: 01/10/242021 Wage Analyst: PTT Heparin Drip Reviewed date:01/11/2024 01:49:27 PM Interpretation: Performing Lab:[facility], [address] [place] [address] Notes/Report: PTT Heparin Drip 80.2 53-77.9 SEC For information regarding the monitoring of heparin therapy, please refer to Pharmacy. PTT Heparin Drip Reviewed date:01/11/2024 01:49:27 PM Interpretation: Performing Lab:[facility], [address] [place] [address] Notes/Report: PTT Heparin Drip 66.0 53-77.9 SEC For information regarding the monitoring of heparin therapy, please refer to Pharmacy. Complete Blood Count Auto Di ff Reviewed date:01/11/2024 01:49:26 PM Interpretation: Performing Lab:[facility], [address] [place] [address] Notes/Report: White Blood Count 17.6 4.8-10.8 X10*3/uL [...] Diff Reviewed date:01/12/2024 07:43:31 AM Interpretation: Performing Lab:[facility], [address] [place] [address] Notes/Report: White Blood Count 12.3 4.8-10.8 X10*3/uL [...] ff Reviewed date:01/11/2024 01:49:26 PM Interpretation: Performing Lab:[facility], [address] [place] [address] Notes/Report: White Blood Count 18.2 4.8-10.8 X10*3/uL [...] Panel Reviewed date:01/11/2024 01:49:26 PM Interpretation: Performing Lab:[facility], [address] [place] [address] Notes/Report: Sodium 135 135-145 mmol/L Potassium 4.6 [...] Phosphorus Reviewed date:01/11/2024 01:49:26 PM Interpretation: Performing Lab:[facility], [address] [place] [address] Notes/Report: Phosphorus 4.3 2.7-4.5 mg/dL Magnesium Reviewed date:01/11/2024 01:49:26 PM Interpretation: Performing Lab:[facility], [address] [place] [address] Notes/Report: Magnesium 2.2 1.6-2.6 mg/dL Albumin Level Reviewed date:01/11/2024 01:49:26 PM Interpretation: Performing Lab:[facility], [address] [place] [address] Notes/Report: Albumin Level 3.6 3.5-5.0 g/dL SLIDE REVIEW Reviewed date:01/11/2024 01:49:26 PM Interpretation: Performing Lab:[facility], [address] [place] [address] Notes/Report: SLIDE REVIEW VERIFIED Venous Blood Gases - POC Reviewed date:01/11/2024 01:49:26 PM Interpretation: Performing Lab:[facility], [address] [place] [address] Notes/Report: VBG pH 7.49 7.32-7.43 METER #: [id number] additional_comment: Jeovany saucedo VBG pCO2 35 METER #: [id number] additional_comment: Jeovany saucedo VBG pO2 57 METER #: [id number] additional_comment: Cb crochia ctrbb henriquezc VBG Base Excess 4.0 METER #: [id number] additional_comment: Jeovany aguilarbb henriquezc VBG HCO3 27 22-26 mmol/L METER #: [id number] additional_comment: Jeovany aguilarbb henriquezc VBG O2 % Saturation 92.0 METER #: [id number] additional_comment: Jeovany stevenson henriquemarek Venous Blood Gases - POC Reviewed date:01/11/2024 01:49:26 PM Interpretation: Performing Lab:[address] [address] Notes/Report: VBG pH 7.42 7.32-7.43 METER #: [id number] additional_comment: Jeovany aguilarbb henriquezc VBG pCO2 42 METER #: [id number] additional_comment: Jeovany aguilarbb henriquezc VBG pO2 35 METER #: [id number] additional_comment: Jeovany stevenson henriquezc VBG Base Excess 3.7 METER #: [id number] additional_comment: Jeovany stevenson henriquezc VBG HCO3 28 22-26 mmol/L METER #: [id number] additional_comment: Jeovany aguilarbb henriquezc VBG O2 % Saturation 62.0 METER #: [id number] additional_comment: Jeovany aguilarbb henriquezc Complete Blood Count Auto Di ff Reviewed date:01/11/2024 01:49:26 PM Interpretation: Performing Lab:[address] [address] Notes/Report: White Blood Count 14.9 4.8-10.8 X10*3/uL [...] ff Reviewed date:01/11/2024 08:19:34 PM Interpretation: Performing Lab:[facility], [address] [place] [address] Notes/Report: White Blood Count 14.3 4.8-10.8 X10*3/uL [...] REVIEW Reviewed date:01/11/2024 08:19:34 PM Interpretation: Performing Lab:[facility], [address] [place] [address] Notes/Report: SLIDE REVIEW VERIFIED Basic Metabolic Panel Reviewed date:01/12/2024 07:43:31 AM Interpretation: Performing Lab:[facility], [address] [place] [address] Notes/Report: Sodium 133 135-145 mmol/L Potassium 4.0 [...] Phosphorus Reviewed date:01/12/2024 07:43:31 AM Interpretation: Performing Lab:[facility], [address] [place] [phone] Notes/Report: Phosphorus 2.7 2.7-4.5 mg/dL Magnesium Reviewed date:01/12/2024 07:43:31 AM Interpretation: Performing Lab:[facility], [address] [place] [address] Notes/Report: Magnesium 2.4 1.6-2.6 mg/dL Complete Blood Count no Diff Reviewed date:01/13/2024 07:58:52 PM Interpretation: Performing Lab:[facility], [address] [place] [address] Notes/Report: White Blood Count 11.9 4.8-10.8 X10*3/uL [...] ff Reviewed date:01/12/2024 07:43:31 AM Interpretation: Performing Lab:[address] [address] Notes/Report: White Blood Count 11.0 4.8-10.8 X10*3/uL [...] Panel Reviewed date:01/12/2024 07:43:31 AM Interpretation: Performing Lab:[facility], [address] [place] [address] Notes/Report: Sodium 139 135-145 mmol/L Potassium 3.9 [...] Phosphorus Reviewed date:01/12/2024 07:43:31 AM Interpretation: Performing Lab:[facility], [address] [place] [phone] Notes/Report: Phosphorus 2.8 2.7-4.5 mg/dL Magnesium Reviewed date:01/12/2024 07:43:31 AM Interpretation: Performing Lab:[facility], [address] [place] [address] Notes/Report: Magnesium 2.3 1.6-2.6 mg/dL SLIDE REVIEW Reviewed date:01/12/2024 07:43:31 AM Interpretation: Performing Lab:[facility], [address] [place] [address] Notes/Report: SLIDE REVIEW VERIFIED Venous Blood Gases - POC Reviewed date:01/12/2024 07:43:31 AM Interpretation: Performing Lab:[facility], [address] [place] [address] Notes/Report: VBG pH 7.41 7.32-7.43 METER #: [id number] additional_comment: Jeovany burgess ctrbb henric VBG pCO2 47 METER #: [id number] additional_comment: Jeovany burgess ctrbb henric VBG pO2 34 METER #: [id number] additional_comment: Jeovany burgess ctrbb henric VBG Base Excess 5.9 METER #: [id number] additional_comment: Jeovany burgess ctrbb henric VBG HCO3 31 22-26 mmol/L METER #: [id number] additional_comment: Jeovany burgess ctrbb henric VBG O2 % Saturation 56.0 METER #: [id number] additional_comment: Jeovany burgess ctrbb henric Complete Blood Count Auto Di ff Reviewed date:01/12/2024 07:43:31 AM Interpretation: Performing Lab:[facility], [address] [place] [address], [place] [address] Notes/Report: White Blood Count 10.7 4.8-10.8 X10*3/uL [...] ff Reviewed date:01/13/2024 07:58:52 PM Interpretation: Performing Lab:[facility], [address] [place] [address] Notes/Report: White Blood Count 11.2 4.8-10.8 X10*3/uL [...] Diff Reviewed date:01/13/2024 07:58:52 PM Interpretation: Performing Lab:[facility], [address] [place] [address] Notes/Report: White Blood Count 12.6 4.8-10.8 X10*3/uL [...] ff Reviewed date:01/13/2024 07:58:52 PM Interpretation: Performing Lab:[facility], [address] [place] [address] Notes/Report: White Blood Count 11.1 4.8-10.8 X10*3/uL [...] Panel Reviewed date:01/13/2024 07:58:52 PM Interpretation: Performing Lab:[facility], [address] [place] [address] Notes/Report: Sodium 137 135-145 mmol/L Potassium 3.8 [...] Phosphorus Reviewed date:01/13/2024 07:58:52 PM Interpretation: Performing Lab:[facility], [address] [place] [address] Notes/Report: Phosphorus 3.0 2.7-4.5 mg/dL Magnesium Reviewed date:01/13/2024 07:58:52 PM Interpretation: Performing Lab:[facility], [address] [place] [address] Notes/Report: Magnesium 2.3 1.6-2.6 mg/dL Albumin Level Reviewed date:01/13/2024 07:58:52 PM Interpretation: Performing Lab:[facility], [address] [place] [address] Notes/Report: Albumin Level 3.5 3.5-5.0 g/dL SLIDE REVIEW Reviewed date:01/13/2024 07:58:52 PM Interpretation: Performing Lab:[facility], [address] [place] [address] Notes/Report: SLIDE REVIEW VERIFIED Venous Blood Gases - POC Reviewed date:01/13/2024 07:58:52 PM Interpretation: Performing Lab:[facility], [address] [place] [address] Notes/Report: VBG pH 7.46 7.32-7.43 METER #: [id number] additional_comment: Jeovany aguilarbb henric VBG pCO2 37 METER #: [id number] additional_comment: Jeovany martinez ctrbb henric VBG pO2 55 METER #: [id number] additional_comment: Jeovany martinez ctrbb henric VBG Base Excess 3.2 METER #: [id number] additional_comment: Jeovany martinez ctrbb henric VBG HCO3 27 22-26 mmol/L METER #: [id number] additional_comment: Jeovany martinez ctrbb henric VBG O2 % Saturation 87.0 METER #: [id number] additional_comment: Jeovany martinez ctrbb henric Complete Blood Count Auto Di ff Reviewed date:01/13/2024 07:58:52 PM Interpretation: Performing Lab:[facility], [address] [place] [address] Notes/Report: White Blood Count 12.6 4.8-10.8 X10*3/uL [...] ff Reviewed date:01/15/2024 06:02:02 AM Interpretation: Performing Lab:[facility], [address] [place] [address] Notes/Report: White Blood Count 13.1 4.8-10.8 X10*3/uL [...] ff Reviewed date:01/15/2024 06:02:02 AM Interpretation: Performing Lab:[facility], [address] [place] [address] Notes/Report: White Blood Count 12.1 4.8-10.8 X10*3/uL [...] Hematocrit Reviewed date:01/15/2024 06:02:02 AM Interpretation: Performing Lab:[facility], [address] [place] [address] Notes/Report: Hemoglobin 7.9 14.0-18.0 g/dl Hematocrit 23.5 42.0-52.0 % Basic Metabolic Panel Reviewed date:01/15/2024 06:02:02 AM Interpretation: Performing Lab:[facility], [address] [place] [address] Notes/Report: Sodium 136 135-145 mmol/L Potassium 3.8 [...] Phosphorus Reviewed date:01/15/2024 06:02:02 AM Interpretation: Performing Lab:[facility], [address] [place] [address] Notes/Report: Phosphorus 2.8 2.7-4.5 mg/dL Magnesium Reviewed date:01/15/2024 06:02:02 AM Interpretation: Performing Lab:[facility], [address] [place] [address] Notes/Report: Magnesium 2.2 1.6-2.6 mg/dL Albumin Level Reviewed date:01/15/2024 06:02:02 AM Interpretation: Performing Lab:[facility], [address] [place] [address] Notes/Report: Albumin Level 3.4 3.5-5.0 g/dL SLIDE REVIEW Reviewed date:01/15/2024 06:02:02 AM Interpretation: Performing Lab:[facility], [address] [place] [address] Notes/Report: SLIDE REVIEW VERIFIED Complete Blood Count no Diff Reviewed date:01/16/2024 08:51:12 AM Interpretation: Performing Lab:[facility], [address] [place] [address] Notes/Report: White Blood Count 12.7 4.8-10.8 X10*3/uL [...] Diff Reviewed date:01/16/2024 08:51:12 AM Interpretation: Performing Lab:[facility], [address] [place] [address] Notes/Report: White Blood Count 9.9 4.8-10.8 X10*3/uL [...] Panel Reviewed date:01/17/2024 05:05:01 AM Interpretation: Performing Lab:[facility], [address] [place] [address] Notes/Report: Sodium 135 135-145 mmol/L Potassium 4.2 [...] Magnesium Reviewed date:01/17/2024 05:05:01 AM Interpretation: Performing Lab:[facility], [address] [place] [address] Notes/Report: Magnesium 2.3 1.6-2.6 mg/dL Complete Blood Count Auto Di ff Reviewed date:01/18/2024 08:33:04 PM Interpretation: Performing Lab:[facility], [address] [place] [address] Notes/Report: White Blood Count 12.0 4.8-10.8 X10*3/uL [...] te Reviewed date:01/18/2024 08:33:04 PM Interpretation: Performing Lab:[address] [address] Notes/Report: Erythrocyte Sedimentation Rate 92 0-15 MM/HR Patients with polycythemia and many hemoglobin abnormalities may have depressed sed rates whereas patients with anemia may have elevated sed rates. Prothrombin Time INR Reviewed date:01/18/2024 08:33:04 PM Interpretation: Performing Lab:[address] [address] Notes/Report: Prothrombin Time 13.4 10.9-12.4 SEC INTERNATIONAL [...] Panel Reviewed date:01/18/2024 08:33:04 PM Interpretation: Performing Lab:[facility], [address] [place] [address] Notes/Report: Sodium 134 135-145 mmol/L Potassium 4.2 [...] Acid Reviewed date:01/18/2024 08:33:04 PM Interpretation: Performing Lab:[facility], [address] [place] [address] Notes/Report: Lactic Acid 1.3 0.5-2.0 mmol/L C Reactive Protein Reviewed date:01/18/2024 08:33:04 PM Interpretation: Performing Lab:[facility], [address] [place] [address] Notes/Report: C Reactive Protein 14.10 < or = 0.50 mg/dL Lipase Reviewed date:01/18/2024 08:33:04 PM Interpretation: Performing Lab:[facility], [address] [place] [address] Notes/Report: Lipase 24 8-78 U/L SLIDE REVIEW Reviewed date:01/18/2024 08:33:04 PM Interpretation: Performing Lab:[facility], [address] [place] [address] Notes/Report: SLIDE REVIEW VERIFIED Blood Culture (First) Reviewed date:01/24/2024 07:41:27 AM Interpretation: Performing Lab:[facility], [address] [place] [address] Notes/Report: Blood Culture (First) No growth after 5 days. Blood Culture (Second) Reviewed date:01/24/2024 07:41:27 AM Interpretation: Performing Lab:[facility], [address] [place] [address] Notes/Report: Blood Culture (Second) No growth after 5 days. US arterial duplex LE RT Reviewed date:01/21/2024 07:35:28 AM Interpretation: Performing Lab: Notes/Report: [address] [address] Ultrasound Report Signed with Addenda Patient: Zan Encinas MR#: [id number] : 1960 Acct:[id number] Age/Sex: 63 / M ADM Date: 01/18/24 Loc: .ED Attending Dr: Ordering Physician: Yuriy Dunbar Date of Service: 01/18/24 Procedure(s): US arterial duplex LE RT Accession Number(s): [id number] cc: Quinton Callahan MD; Yuriy Dunbar ADDENDUM ADDENDUM #1 Findings were communicated by telephone with Dr. Gerard by Dr. Zarate at 2034 hours. Electronically signed by: Placido Zarate MD 01/18/2024 08:41 PM [facility] [place], [place] Addendum Dictated By: Yuriy Zarate MD Addendum [...] Placido Zarate MD 01/18/2024 08:33 PM [facility] [place] [place] Dictated By: Yuriy Zarate MD Signed By: <Electronically signed by Yuriy Zarate MD in OV> 01/18/242032 DD/ 02 TD/TT: 01/18/241505 Wage Analyst: BLANCA [place] [address] Ultrasound Report Signed with Addenda Patient: Zan Encinas MR#: [id number] : 1960 Acct:[id number] Age/Sex: 63 / M ADM Date: 01/18/24 Loc: .ED Attending Dr: Ordering Physician: Yuriy Dunbar Date of Service: 01/18/24 Procedure(s): US arterial duplex LE RT Accession Number(s): [id number] cc: Quinton Callahan MD; Yuriy Dunbar ADDENDUM [...] in OV> 01/18/242032 DD/ 02 TD/TT: 01/18/241505 Wage Analyst: BLANCA XR foot RT min 3V Reviewed date:01/18/2024 08:33:04 PM Interpretation: Performing Lab: Notes/Report: [address] [address] XRay Report Signed Patient: Zan Encinas MR#: [id number] : 1960 Acct:[id number] Age/Sex: 63 / M ADM Date: 01/18/24 Loc: .ED Attending Dr: Ordering Physician: Yuriy Dunbar Date of Service: 01/18/24 Procedure(s): XR foot RT min 3V Accession Number(s): [id number] cc: Quinton Callahan MD; Yuriy Dunbar EXAMINATION: [...] Kaushal Cohen MD 01/18/2024 04:19 PM [facility] [place] [place] Dictated By: Kaushal Cohen MD Signed By: <Electronically signed by Kaushal Cohen MD in OV> 01/18/24 1619 DD/ 1516 TD/TT: 01/18/24 1534 Wage Analyst: MICHELA [place] [address] XRay Report Signed Patient: Zan Encinas MR#: [id number] : 1960 Acct:[id number] Age/Sex: 63 / M ADM Date: 01/18/24 Loc: .ED Attending Dr: Ordering Physician: Yuriy Dunbar Date of Service: 01/18/24 Procedure(s): XR chito t RT min 3V Accession Number(s): [id number] cc: Quinton Callahan MD; Yuriy Dunbar EXAMINATION: [...] Kaushal Cohen MD 01/18/2024 04:19 PM [facility] [place] [place] Dictated By: Kaushal Cohen MD Signed By: <Electronically signed by Kaushal Cohen MD in OV> 01/18/24 1619 DD/ 1516 TD/TT: 01/18/24 1534 Wage Analyst: MICHELA Complete Blood Count no Diff Reviewed date:02/04/2024 11:35:53 AM Interpretation: Performing Lab:[facility], [address] [place] [address] Notes/Report: White Blood Count 11.5 4.8-10.8 X10*3/uL [...] INR Reviewed date:02/04/2024 11:35:53 AM Interpretation: Performing Lab:[facility], [address] [place] [address] Notes/Report: Prothrombin Time 13.0 10.9-12.4 SEC INTERNATIONAL [...] Time Reviewed date:02/04/2024 11:35:53 AM Interpretation: Performing Lab:[facility], [address] [place] [address] Notes/Report: Partial Thromboplastin Time 33.9 26.0-36.8 SEC For information regarding the monitoring of direct thrombin inhibitors, please refer to Pharmacy. Basic Metabolic Panel Reviewed date:02/04/2024 11:35:53 AM Interpretation: Performing Lab:[facility], [address] [place] [address] Notes/Report: Sodium 138 135-145 mmol/L Potassium 4.4 [...] Pathology Reviewed date:02/08/2024 08:35:16 AM Interpretation: Performing Lab:[facility], [address] [place] [address] Notes/Report: ---- Name: Toney Encinas Age/Sex: 63/M : 1960 [id number]#: [id number] Attend Dr: Bimal Knott MD Re02/04/24 Status : ADM IN Location: [facility] 364-1 Disch: ---- SPEC : [id number] RECD : 02/04/24-1214 STATUS: YUSUF MATHUR NUM: [id number] FRANTZ: 02/04/24-[address]: Bimal Knott MD [...] label ed ?right leg? is a right bjydr-anx-zjxb amputation specimen which measures 34.0 cm in [...] No other erosions or ulcers are identified. Cell Manager sections are submitted labeled as follows: A1 [...] Name: EncinasToney Age/Sex: 63/M : 1960 Unit#: [id number] Attend Dr: Bimal Knott MD Re02/04/24 Status : ADM IN Location: [facility] 364-1 Disch: ---- SPEC : [id number] RECD : 02/04/24 STATUS: YUSUF KEVAN NUM: [id number] FRANTZ: 02/04/24-8 [facility] DR: Bimal Knott MD ENTERED: 02/04/24- 16 SP TYPE: Surgical OTHR DR: Quinton Callahan MD ORDERED: Gross Micro L5 Copies To: Quinton Callahan MD [address] [place] [address], [place] [address] Bimal Knott MD [facility] [address] [place] [address] ---- Signed (signature on file) Val Somerset 02/06/24 1550 ---- END OF REPORT Type and Screen Reviewed date:02/04/2024 11:35:53 AM Interpretation: Performing Lab:[facility], [address] [place] [address] Notes/Report: Blood Type OP Antibody Screen NEGATIVE Complete Blood Count no Diff Reviewed date:02/08/2024 08:35:16 AM Interpretation: Performing Lab:[facility], [address] [place] [address] Notes/Report: White Blood Count 9.4 4.8-10.8 X10*3/uL [...] ff Reviewed date:02/08/2024 08:35:16 AM Interpretation: Performing Lab:[facility], [address] [place] [address] Notes/Report: White Blood Count 11.2 4.8-10.8 X10*3/uL [...] Panel Reviewed date:02/08/2024 08:35:16 AM Interpretation: Performing Lab:[facility], [address] [place] [address] Notes/Report: Sodium 137 135-145 mmol/L Potassium 3.9 [...] REVIEW Reviewed date:02/08/2024 08:35:16 AM Interpretation: Performing Lab:[address] [address] Notes/Report: SLIDE REVIEW VERIFIED Complete Blood Count no Diff Reviewed date:02/08/2024 08:35:16 AM Interpretation: Performing Lab:[address] [address] Notes/Report: White Blood Count 9.3 4.8-10.8 X10*3/uL [...] Panel Reviewed date:02/08/2024 08:35:16 AM Interpretation: Performing Lab:[address] [address] Notes/Report: Sodium 136 135-145 mmol/L Potassium 3.8 [...] Level Reviewed date:02/08/2024 08:35:16 AM Interpretation: Performing Lab:[facility], [address] [place] [address] Notes/Report: Albumin Level 2.7 3.5-5.0 g/dL Complete Blood Count no Diff Reviewed date:02/08/2024 08:35:16 AM Interpretation: Performing Lab:[facility], [address] [place] [address] Notes/Report: White Blood Count 9.0 4.8-10.8 X10*3/uL [...] Gel Reviewed date:02/08/2024 08:35:16 AM Interpretation: Performing Lab:[facility], [address] [place] [address] Notes/Report: Hold Green Gel See Note Specimen held untested for 24 hours; Call to request Chemistry testing. Complete Blood Count Auto Di ff Reviewed date:05/27/2024 08:42:02 AM Interpretation: Performing Lab:[facility], [address] [place] [address] Notes/Report: White Blood Count 10.9 4.8-10.8 X10*3/uL [...] te Reviewed date:05/27/2024 08:42:02 AM Interpretation: Performing Lab:[address] [address] Notes/Report: Erythrocyte Sedimentation Rate 10 0-15 MM/HR Patients with polycythemia and many hemoglobin abnormalities may have depressed sed rates whereas patients with anemia may have elevated sed rates. Comprehensive Met. Panel Reviewed date:05/27/2024 08:42:02 AM Interpretation: Performing Lab:[address] [address] Notes/Report: Sodium 138 135-145 mmol/L Potassium 4.3 [...] Acid Reviewed date:05/27/2024 08:42:02 AM Interpretation: Performing Lab:[address] [address] Notes/Report: Lactic Acid 1.4 0.5-2.0 mmol/L C Reactive Protein Reviewed date:05/27/2024 08:42:02 AM Interpretation: Performing Lab:[facility], [address] [place] [address] Notes/Report: C Reactive Protein 1.01 < or = 0.50 mg/dL Blood Culture (First) Reviewed date:06/07/2024 04:51:50 AM Interpretation: Performing Lab:[facility], [address] [place] [address] Notes/Report: Blood Culture (First) No growth after 5 days. Blood Culture (Second) Reviewed date:06/07/2024 04:51:50 AM Interpretation: Performing Lab:[facility], [address] [place] [address] Notes/Report: Blood Culture (Second) No growth after 5 days. XR knee RT 4V Reviewed date:05/27/2024 08:42:02 AM Interpretation: Performing Lab: Notes/Report: [address] [place] [address] XRay Report Signed Patient: Zan Encinas MR#: [id number] : 1960 Acct:[id number] Age/Sex: 64 / M ADM Date: 05/26/24 Loc: .ED Attending Dr: Ordering Physician: Gt Cruz Date of Service: 05/26/24 Procedure(s): XR knee RT 4V Accession Number(s): [id number] cc: Gt Cruz; Quinton Callahan MD EXAMINATION: XR KNEE, RIGHT CLINICAL INFORMATION: Right stump erythema/pus discharge COMPARISON: 10/01/2023. TECHNIQUE: Four views of the right knee. FINDINGS: There is mild generalized osteopenia. There has been a sojbv-jnj-ncxv amputation. There are no permeative changes involving [...] 05/26/24 1532 DD/ 1452 TD/TT: 05/26/24 1510 Wage Analyst: [address] [address] XRay Report Signed Patient: Zan Encinas MR#: [id number] : 1960 Acct:[id number] Age/Sex: 64 / M ADM Date: 05/26/24 Loc: .ED Attending Dr: Ordering Physician: Gt Cruz Date of Service: 05/26/24 Procedure(s): XR kne e RT 4V Accession Number(s): [id number] cc: Gt Cruz; Quinton Callahan MD EXAMINATION: XR KNEE, RIGHT CLINICAL INFORMATION: Right stump erythema /pus discharge COMPARISON: 10/01/2023. TECHNIQUE: Four views of the ri ght knee. FINDINGS: There is mild generalized osteopenia. There has been a zrvfq-szy-tjcx amputation. There are no permeative changes involving [...] 05/26/24 1532 DD/ 1452 TD/TT: 05/26/24 1510 Wage Analyst: Complete Blood Count Auto Di ff Reviewed date:05/27/2024 08:42:02 AM Interpretation: Performing Lab:[address] [address] Notes/Report: White Blood Count 9.2 4.8-10.8 X10*3/uL [...] Panel Reviewed date:05/27/2024 08:42:02 AM Interpretation: Performing Lab:[facility], [address] [place] [address] Notes/Report: Sodium 140 135-145 mmol/L Potassium 3.8 [...] Creatinine Reviewed date:05/27/2024 08:42:02 AM Interpretation: Performing Lab:[facility], [address] [place] [address] Notes/Report: Creatinine 0.84 0.5-1.4 mg/dL Creatinine Clr [...] Random Reviewed date:05/28/2024 04:55:44 AM Interpretation: Performing Lab:[facility], [address] [place] [address] Notes/Report: Vancomycin Random 13.2 15-20 mcg/mL MR knee RT wo/w con Reviewed date:05/28/2024 04:55:44 AM Interpretation: Performing Lab: Notes/Report: [address] [place] [address] Magnetic Resonance Report Signed Patient: Zan Encinas MR#: [id number] : 1960 Acct:[id number] Age/Sex: 64 / M ADM Date: 05/26/24 Loc: .S3 376-[address]: Luciano Mari MD Ordering Physician: Keith Menendez MD Date of Service: 05/27/24 Procedure(s): MR knee RT wo/w con Accession Number(s): [id number] cc: Quinton Callahan MD; Keith Menendez MD [...] 05/27/24 1626 DD/ 1527 TD/TT: 05/27/24 1549 Wage Analyst: [place] [address] Magnetic Resonance Report Signed Patient: Zan Encinas MR#: [id number] : 1960 Acct:[id number] Age/Sex: 64 / M ADM Date: 05/26/24 Loc: .S3 376-[address]: Alfredo Mari MD Ordering Physician: Keith Menendez MD Date of Service: 05/27/24 Procedure(s): MR green e RT wo/w con Accession Number(s): [id number] cc: Quinton Callahan MD; Keith Menendez MD [...] 05/27/24 1626 DD/ 1527 TD/TT: 05/27/24 1549 Wage Analyst: Creatinine Reviewed date:05/28/2024 02:19:09 PM Interpretation: Performing Lab:[facility], [address] [place] [address] Notes/Report: Creatinine 0.81 0.5-1.4 mg/dL Creatinine Clr [...] Random Reviewed date:05/30/2024 07:30:54 PM Interpretation: Performing Lab:[address] [address] Notes/Report: Vancomycin Random 13.4 15-20 mcg/mL Hold Lav - Possible Hematolo gy Reviewed date:05/30/2024 07:30:54 PM Interpretation: Performing Lab:[address] [address] Notes/Report: Hold Lav - Possible Hematology SEE NOTE Specimen will be held untested for 8 hours. Call Hematology if testing is desired. Creatinine Reviewed date:05/30/2024 07:30:54 PM Interpretation: Performing Lab:[facility], [address] [place] [address] Notes/Report: Creatinine 0.79 0.5-1.4 mg/dL Creatinine Clr [...] ff Reviewed date:07/01/2024 10:06:14 AM Interpretation: Performing Lab:[facility], [address] [place] [phone] Notes/Report: White Blood Count 8.9 4.8-10.8 X10*3/uL [...] Creatinine Reviewed date:07/01/2024 10:06:14 AM Interpretation: Performing Lab:[address] [phone] Notes/Report: Creatinine 1.10 0.5-1.4 mg/dL Estimated Glomerular Filt Rate > 60 Chronic Kidney Disease: Estimated GFR < 60 mL/min/1.73m2 Severe Kidney Disease: Estimated GFR < 15 mL/min/1.73m2 Vancomycin Trough Reviewed date:07/01/2024 10:06:14 AM Interpretation: Performing Lab:[facility], [address] [place] [phone] Notes/Report: Vancomycin Trough 20.4 10.0-20.0 mcg/mL Complete Blood Count no Diff Reviewed date:10/13/2024 03:48:51 PM Interpretation: Performing Lab:[facility], [address] [place] [phone] Notes/Report: White Blood Count 8.2 4.8-10.8 X10*3/uL [...] Panel Reviewed date:10/13/2024 03:48:51 PM Interpretation: Performing Lab:[address] [phone] Notes/Report: Sodium 142 135-145 mmol/L Potassium 4.5 [...] stain Reviewed date:10/21/2024 05:29:45 AM Interpretation: Performing Lab:[address] [phone] Notes/Report: BONE RIGHT TIBIA BONE RIGHT TIBIA Gram stain Gram stain results: Gram stain No polys Gram stain 4+ red blood cells Gram stain No organisms seen Routine Culture Reviewed date:10/13/2024 03:48:51 PM Interpretation: Performing Lab:[address] [address] Notes/Report: RIGHT BKA DEEP CULTURE Routine Culture Report - external Routine Culture 1+ Mixed skin rocio O:STAAUR Staphylococcus aureus Routine Culture Quant Org ID Routine Culture 1+ Clindamycin <=0.25 Erythromycin <=0.25 Levofloxacin 0.25 Oxacillin 0.5 Penicillin-G >=0.5 Tetracycline <=1 Trimethoprim/Sulfamethox azole <=10 Anaerobic Culture Reviewed date:10/21/2024 05:29:45 AM Interpretation: Performing Lab:[facility], [address] [place] [address] Notes/Report: BONE RIGHT TIBIA BONE RIGHT TIBIA Anaerobic Culture Report Anaerobic Culture No anaerobes isolated. Gram stain Reviewed date:10/13/2024 03:48:51 PM Interpretation: Performing Lab:[facility], [address] [place] [address] Notes/Report: RIGHT BKA DEEP CULTURE Gram stain Gram stain results: Gram stain 1+ polys Gram stain 4+ red blood cells Gram stain No organisms seen Routine Culture Reviewed date:10/21/2024 05:29:45 AM Interpretation: Performing Lab:[facility], [address] [place] [address] Notes/Report: Clindamycin <=0.25 Erythromycin <=0.25 Levofloxacin 0.25 Oxacillin 0.5 Penicillin-G >=0.5 Tetracycline <=1 Trimethoprim/Sulfamethox azole <=10 Clindamycin >=8 Erythromycin >=8 Levofloxacin <=0.12 Oxacillin >=4 Penicillin-G >=0.5 Tetracycline >=16 Trimethoprim/Sulfamethox azole 160 Vancomycin 1 Complete Blood Count Auto Di ff Reviewed date:10/21/2024 05:29:45 AM Interpretation: Performing Lab:[facility], [address] [place] [address] Notes/Report: White Blood Count 8.1 4.8-10.8 X10*3/uL [...] te Reviewed date:10/21/2024 05:29:45 AM Interpretation: Performing Lab:[address] [address] Notes/Report: Erythrocyte Sedimentation Rate 5 0-15 MM/HR Patients with polycythemia and many hemoglobin abnormalities may have depressed sed rates whereas patients with anemia may have elevated sed rates. Comprehensive Met. Panel Reviewed date:10/21/2024 05:29:45 AM Interpretation: Performing Lab:[address] [address] Notes/Report: Sodium 139 135-145 mmol/L Potassium 4.3 [...] Protein Reviewed date:10/21/2024 05:29:45 AM Interpretation: Performing Lab:[address] [address] Notes/Report: C Reactive Protein 0.52 < or = 0.50 mg/dL Gram stain Reviewed date:10/24/2024 02:48:30 PM Interpretation: Performing Lab:[facility], [address] [place] [address] Notes/Report: R BKA surgical site Gram stain Gram stain results: Gram stain 3+ polys Gram stain 2+ epithelial cells Gram stain 3+ Gram-negative rods Gram stain 1+ Gram-positive cocci Routine Culture Reviewed date:10/24/2024 02:48:30 PM Interpretation: Performing Lab:[facility], [address] [place] [address] Notes/Report: R BKA surgical site O:PSEAER Pseudomonas aeruginosa Routine Culture Quant Org ID Routine Culture 3+ O:CORSPE Corynebacterium species Routine Culture No susc Routine Culture Standard methods for susceptibility testing not established. Routine Culture Quant Org ID Routine Culture 2+ Cefepime 2 Ciprofloxacin 0.12 Gentamicin <=1 Meropenem 0.5 Piperacillin/Tazobactam <=4 Blood Culture (First) Reviewed date:11/07/2024 05:47:41 AM Interpretation: Performing Lab:[facility], [address] [place] [address] Notes/Report: Blood Culture (First) No growth after 5 days. Blood Culture (Second) Reviewed date:11/07/2024 05:47:41 AM Interpretation: Performing Lab:[facility], [address] [place] [address] Notes/Report: Blood Culture (Second) No growth after 5 days. XR knee RT 4V Reviewed date:10/21/2024 05:29:45 AM Interpretation: Performing Lab: Notes/Report: [facility] [address] [facility] [place] [address] XRay Report Signed Patient: Zan Encinas MR#: [id number] : 1960 Acct:[id number] Age/Sex: 64 / M ADM Date: 10/20/24 Loc: HO.ED Attending Dr: Ordering Physician: Pooja Tapia Date of Service: 10/20/24 Procedure(s): XR knee RT 4V Accession Number(s): [id number] cc: Quinton Callahan MD; Pooja Tapia EXAMINATION: [...] 10/20/24 1311 DD/ 1156 TD/TT: 10/20/24 1300 Wage Analyst: [address] [address] XRay Report Signed Patient: Zan Encinas MR#: [id number] : 1960 Acct:[id number] Age/Sex: 64 / M ADM Date: 10/20/24 Loc: HO.ED Attending Dr: Ordering Physician: Pooja Tapia Date of Service: 10/20/24 Procedure(s): XR kne e RT 4V Accession Number(s): [id number] cc: Quinton Callahan MD; Pooja Tapia EXAMINATION: [...] 10/20/24 1311 DD/ 1156 TD/TT: 10/20/24 1300 Wage Analyst: Complete Blood Count no Diff Reviewed date:10/24/2024 02:48:30 PM Interpretation: Performing Lab:[facility], [address] [place] [address] Notes/Report: White Blood Count 6.8 4.8-10.8 X10*3/uL [...] Panel Reviewed date:10/24/2024 02:48:30 PM Interpretation: Performing Lab:[address] [address] Notes/Report: Sodium 142 135-145 mmol/L Potassium 4.3 [...] T4 Reviewed date:10/24/2024 02:48:30 PM Interpretation: Performing Lab:[address] [address] Notes/Report: TSH reflex Free T4 1.34 0.32-4.0 uIU/mL Vancomycin Random Reviewed date:10/24/2024 02:48:30 PM Interpretation: Performing Lab:[facility], [address] [place] [address] Notes/Report: Vancomycin Random 12.7 15-20 mcg/mL Hold Lav - Possible Hematolo gy Reviewed date:10/24/2024 02:48:30 PM Interpretation: Performing Lab:[facility], [address] [place] [address] Notes/Report: Hold Lav - Possible Hematology SEE NOTE Specimen will be held untested for 8 hours. Call Hematology if testing is desired. Creatinine Reviewed date:10/24/2024 02:48:30 PM Interpretation: Performing Lab:[facility], [address] [place] [address] Notes/Report: Creatinine 1.09 0.5-1.4 mg/dL Creatinine Clr [...] Random Reviewed date:10/24/2024 02:48:30 PM Interpretation: Performing Lab:[facility], [address] [place] [address] Notes/Report: Vancomycin Random 12.4 15-20 mcg/mL Hold Lav - Possible Hematolo gy Reviewed date:10/24/2024 02:48:30 PM Interpretation: Performing Lab:[facility], [address] [place] [address] Notes/Report: Hold Lav - Possible Hematology SEE NOTE Specimen will be held untested for 8 hours. Call Hematology if testing is desired. Creatinine Reviewed date:10/24/2024 02:48:30 PM Interpretation: Performing Lab:[facility], [address] [place] [address] Notes/Report: Creatinine 1.14 0.5-1.4 mg/dL Creatinine Clr [...] Random Reviewed date:10/24/2024 02:48:30 PM Interpretation: Performing Lab:[facility], [address] [place] [address] Notes/Report: Vancomycin Random 18.9 15-20 mcg/mL US renal BI Reviewed date:12/06/2024 06:19:52 AM Interpretation: Performing Lab: Notes/Report: [address] [address] Ultrasound Report Signed Patient: Zan Encinas MR#: [id number] : 1960 Acct:[id number] Age/Sex: 64 / M ADM Date: 12/04/24 Loc: HO.US Attending Dr: Chloe PACHECO Ordering Physician: Chloe Flores Date of Service: 12/04/24 Procedure(s): US renal BI Accession Number(s): [id number] cc: Quinton Callahan MD; Chloe Flores Reason [...] in OV> 12/05/241346 DD/ 45 TD/TT: 12/05/241345 Wage Analyst: [address] [address] Ultrasound Report Signed Patient: Zan Encinas MR#: [id number] : 1960 Acct:[id number] Age/Sex: 64 / M ADM Date: 12/04/24 Loc: HO.US Attending Dr: Chloe mcqueen [facility] Ordering Physician: [facility] Date of Service: 12/04/24 Procedure(s): US hubert Proctor Accession Number(s): [id number] cc: Quinton Callahan MD; Chloe Flores [facility] Reason for Exam: N28 .1 - [...] OV> 12/05/24 134 DD/ 45 TD/TT: 12/05/241345 Wage Analyst: Reason For Referral Reason Evaluate and Treat Irregular Heart Rate History of A-Fib Diagnosis 1 Irregular heart rate (I49.9) Diagnosis 2 Left bundle branch b lock (I44.7) Diagnosis 3 History of atrial fi brillation (Z86.79) Referral Organization Quinton Callahan III, MD Referring Provider First Name Quinton Referring Provider Last Name Callahan Referring Provider Speciality Internal edicine Referred Provider [facility] er, Cardiology Referred Provider Specialty [...] a message to Dr. Ferrer's medical records field technician to ask if the patient can be seen with the nurse practitioner. Stated they will contact the patient directly. Referral Priority Routine Referral Appointment Date 11/19/2024 Reason left renal hematoma evaluate and treatment Diagnosis 1 Hematoma of left kid luz, initial encounter (S37.012A) Referral Organization Quinton Callahan III, MD Referring Provider First Name Quinton Referring Provider Last Name Callahan Referring Provider [facility] edicine Referred Provider Chloe Flores Referred Provider Specialty Urology General Notes Lisa Jolie VALE 09/30 03:24:56 PM >I called Dr Flores office made patient an appt for 12/03/2024 at 2:45pm pt is established with Dr Flores so no records were sent . [facility] appt information was mailed to patient [...] Specialty Gastroentero logy General Notes S Jolie ADVICE CLERK 09/30 03:23:14 PM >Called Dr Campos office [...] Problem Status W/U Status Risk Notes Problem 816875237 Overweight (E66.3) Active confirmed His body mass index is 29. We discussed diet and nutrition. I recommended aggressive weight loss and sodium restriction. Problem 062395720 Mixed hyperlipidemia (E78.2) Active confirmed A comprehensive laboratory database with a fasting lipid profile will be obtained. He was continued on his currrent meddications. Problem 92972298 Chronic obstructive pulmonary disease, unspecified COPD type (J44.9) Active confirmed He has resumed smoking 5 cigarettes per day. He was counseled about this and made aware of the smoking cessation programs in the area. Problem 65286974 Tobacco dependence (F17.200) Active confirmed I have counseled him about smoking cessation and offered to refer him to smoking cessation programs in the community. He said he would consider this and try to cut down. Problem Left bundle branch block (22202950) Left bundle branch block (I44.7) Active confirmed The sld teacher's interpretation of the perfusion test was that the defect in the septum may be due to the bundle branch block. I will discuss this with cardiology. Problem 09555564 Hiatal hernia (K44.9) Active confirmed The symptoms of his esophageal reflux and hiatal hernia well controlled with current medications. No change in his regimen as needed. Problem 319739910 Peripheral arterial disease (I73.9) Active confirmed He is seeing the vascular surgeon rita 2 weeks. 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 The plan is to fit him for a prosthesis. He denies any ulcers or claudication in the left leg. Problem Hoarseness (98513990) Hoarseness (R49.0) Active confirmed He will be referred to ENT for indirect laryngoscopy. Problem 6194069 Umbilical hernia without obstruction and without gangrene (K42.9) Active confirmed This is asymptomatic and requires no treatment at this time. Problem 347338417 Benign prostatic hyperplasia with lower urinary tract symptoms (N40.1) Active confirmed The tamsulosin was continued today. He will notify me if his symptoms worsen. He has had no retention. He has symptoms of prostatism. Problem 266530072 Acute right-sided low back pain with right-sided sciatica (M54.41) Active confirmed His back pain continues and I have increased the gabapentin. Problem Cardiac arrhythmia (916526005) Irregular heart rate (I49.9) Active confirmed These episodes had night have increased lately. He has had no chest pain. He has had no increase in his chronic dyspnea. Holter monitor has been ordered. He is not anticoagulated. Problem 597149545 Palmer's esophagus determined by endoscopy (K22.70) Active confirmed He is due for an endoscopy and was referred back to his gastroenterolog ist, Dr. Quinton Campos. 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 Problem 29339285883972707 Carpal tunnel syndrome on both sides (G56.03) Active confirmed He has a history of carpal tunnel syndrome treated by Dr. Raphael. He is currently asymptomatic. 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 Vascular has referred him to infectious disease for an opinion. The patient I today discussed the possibility of an gltea-quj-jhwb amputation and what it would be like [...] Date Provider Diagnosis Quinton Callahan III, MD [address] [place] [address] [place] [address] 12/28/2023 Quinton Callahan Peripheral arterial disease I73.9 ; Chronic obstructive pulmonary disease, unspecified COPD type J44.9 ; Benign prostatic hyperplasia with lower urinary tract symptoms N40.1 ; Palmer's esophagus determined by endoscopy K22.70 ; Hiatal hernia K44.9 ; Overweight E66.3 ; Tobacco dependence F17.200 and Mixed hyperlipidemia E78.2 Quinton Callahan III, MD [address] [place] [address] [place] [address] 06/12/2024 Quinton Callahan Peripheral arterial disease I73.9 ; Benign prostatic hyperplasia with lower urinary tract symptoms N40.1 ; Palmer's esophagus determined by endoscopy K22.70 ; Chronic obstructive pulmonary disease, unspecified COPD type J44.9 ; Overweight E66.3 ; Tobacco dependence F17.200 and Mixed hyperlipidemia E78.2 Quinton Callahan III, MD [address] [place] [address] [place] [address] 07/10/2024 Quinton Callahan Peripheral arterial disease I73.9 [...] Tobacco dependence F17.200 Quinton Callahan III, MD [address] [place] [address] [place] [address] 09/09/2024 Quinton Callahan Irregular heart rate I49.9 [...] draining sinus M86.461 Quinton Callahan III, MD [address] [place] [address] [place] [address] 09/30/2024 Quinton Callahan Chronic osteomyeliti s of right tibia with draining sinus M86.461 ; Overweight E66.3 ; Umbilical hernia without obstruction and without gangrene K42.9 ; Peripheral arterial disease I73.9 ; Chronic obstructive pulmonary disease, unspecified COPD type J44.9 ; Splenic vein thrombosis I82.890 ; Palmer's esophagus determined by endoscopy K22.70 and Tobacco dependence F17.200 Quinton Callahan III, MD [address] [place] [address] [place] [address] 10/29/2024 Quinton Callahan Chronic osteomyeliti s of right tibia with draining sinus M86.461 ; Tobacco dependence F17.200 ; Peripheral arterial disease I73.9 ; Palmer's esophagus determined by endoscopy K22.70 ; Chronic obstructive pulmonary disease, unspecified COPD type J44.9 ; Hiatal hernia K44.9 and Mixed hyperlipidemia E78.2 Quinton Callahan III, MD [address] [place] [address] [place] [address] 12/02/2024 Quinton Callahan Chronic osteomyeliti s of right tibia with draining sinus M86.461 ; Chronic obstructive pulmonary disease, unspecified COPD type J44.9 ; Palmer's esophagus determined by endoscopy K22.70 ; Benign prostatic hyperplasia with lower urinary tract symptoms N40.1 ; Splenic vein thrombosis I82.890 ; Hiatal hernia K44.9 ; Tobacco dependence F17.200 and Overweight E66.3 Quinton Callahan III, MD [address] [place] [address] [place] [address] 12/18/2023 Quinton Callahan III, MD [address] [place] [address] [place] [address] 12/21/2023 Quinton Callahan III, MD [address] [place] [address] [place] [address] 12/21/2023 Quinton Callahan III, MD [address] [place] [address] [place] [address] 02/12/2024 Quinton Callahan III, MD [address] [place] [address] [place] [address] 03/04/2024 Quinton Callahan III, MD [address] [place] [address] [place] [address] 05/02/2024 Quinton Callahan III, MD [address] [place] [address] [place] [address] 05/02/2024 Quinton Callahan Peripheral arterial disease I73.[address] [id number] 06/02/2024 Quinton Callahan III, MD [address] [place] [address] [place] [address] 07/23/2024 Quinton Callahan III, MD [address] [place] [address] [place] [address] 08/27/2024 Quinton Callahan III, MD [address] [place] [address] [place] [address] 09/04/2024 Quinton Callahan Assessments Encounter Date Diagnosis [...] I today discussed the possibility of an rlknn-olw-npnv amputation and what it would be like [...] endoscopy and was referred back to his fashion designer, Dr. Quinton Campos. 07/10/2024 Benign prostatic hyperplasia [...] endoscopy and was referred back to his fashion designer, Dr. Quinton Campos. 12/28/2023 Palmer's esophagus determined by endoscopy (ICD-10 - K22.70) He is due for an endoscopy and was referred back to his fashion designer, Dr. Quinton Campos. 06/12/2024 Chronic obstructive pulmonary disease, unspecified COPD type (ICD-10 - J44.9) He has resumed smoking 5 cigarettes per day. He was counseled about this and made aware of the smoking cessation programs in the area. 07/10/2024 Palmer's esophagus determined by endoscopy (ICD-10 - K22.70) He is due for an endoscopy and was referred back to his fashion designer, Dr. Quinton Campos. 09/09/2024 Palmer's esophagus determined by endoscopy (ICD-10 - K22.70) He is due for an endoscopy and was referred back to his fashion designer, Dr. Quinton Campos. 09/30/2024 Peripheral arterial disease [...] endoscopy and was referred back to his fashion designer, Dr. Quinton Campos. 12/02/2024 Benign prostatic hyperplasia [...] endoscopy and was referred back to his fashion designer, Dr. Quinton Campos. 10/29/2024 Mixed hyperlipidemia (ICD-10 [...] Name:Quinton Callahan , 01/06/2025 02:30:00 PM, [address] [facility] [address], [place], [address], Provider Name:Quinton Callahan , 12/08/2025 02:30:00 PM, [address] [facility] [address], [place], [address], Insurance Providers Payer Name Payer Address Payer Phone Subscriber Number Group Number Insured Name Patient Relationship to Insured Coverage Start Date Coverage End Date [employer] [address] [place] [phone] [id number] Zan Olivo Self - patient is the insured 4 MEDICARE NGS [address] [place] [address] [id number] Zan Olivo Self - patient is the [...] right leg Surgical History Surgery Date(Month/Year) Right uaasx-qve-dlsa amputation 4 arteriogram right lower extremity 05/2019 upper endoscopy, [facility], Dr. Quinton Campos, Palmer's esophagus 2014 upper endoscopy and colonosc opy, [facility], Dr. 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
--- OUTSIDE RECORDS SUMMARY | 2024-12-16 16:46 | XMS_ITS | Encounter Summary ---
Author Organization [facility] Address [address] [place] [address] [place] [address] Phone Care Team Providers Care Top Polisher Name Role Phone Quinton Callahan MD Primary Care Provider [phone]- [phone] Encounter Details Date Type Department Care Team (Late st Contact Info) Description 11/28/2023 Procedure [facility] [address] [place] [address] Social History Tobacco Use Types Packs/Day Years [...] on filedocumented in this encounter Care Teams Top Polisher Relationship Specialty Start Date End Date Quinton Callahan MD [address] [place] [address] [place] [id number] PCP - General Medical Oncology 11/23/23 documented as of this encounter Additional Source Comments The information contained in this document represents components of the legal health record. It is not the complete legal health record.[facility]
--- OUTSIDE RECORDS SUMMARY | 2024-12-16 16:46 | XMS_ITS | Encounter Summary ---
Author Organization [facility] Address [address] [place] [address] [place] [address] Phone Care Team Providers Care Cane Splicer Name Role Phone Quinton Callahan MD Primary Care Provider +1- [phone] Encounter Details Date Type Department Care Team (Late st Contact Info) Description 11/28/2023 Procedure [facility] [address] [place] [address] Social History Tobacco Use Types Packs/Day Years [...] on filedocumented in this encounter Care Teams Cane Splicer Relationship Specialty Start Date End Date Quinton Callahan MD [address] [place] [address] [place] [id number] PCP - General Medical Oncology 11/23/23 documented as of this encounter Additional Source Comments The information contained in this document represents components of the legal health record. It is not the complete legal health record.[facility]
--- OUTSIDE RECORDS SUMMARY | 2024-12-16 16:47 | XMS_ITS | Data Portability ---
Author Organization [facility], Main Office Address [address] [place] [address] [address] [place] [address] Care Team Providers Care Investigations Manager Name Role Phone [facility] OTHER KEON HEREDIA Primary Care Provider [...] Organization Details Recorded Time Blood in urine 85851055 Active [address], [address], [place], [address], [facility] 4 10:17:42 Benign prostatic hyperplasia 849386738 Active [address], [address], [place], [address], [facility] 4 10:17:40 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 Active [address], [address], [place], [address], [facility] 4 10:18:23 Limb ischemia 3738598429986 5 Active [address], [address], [place], [address], [facility] 4 10:19:49 Peripheral arterial disease 016369202 Active [address], [address], [place], [address], [facility] 4 10:21:45 Chronic obstructive pulmonary disease 57191595 Active [address], [address], [place], [address], [facility] 4 10:22:55 Gastroesoph ageal reflux disease 126556670 Active [address], [address], [place], [address], [facility] 4 10:23:11 Smoker 55268394 Active [address], [address], [place], [address], [facility] 4 10:23:08 Essential hypertensio n 34321843 Active [address], [address], [place], [address], [facility] 4 10:25:41 Hyperlipide angela 77836427 Active 2023 Yvonne Belcher [address] [place] [address], [address], [place], [address], [facility] 4 10:49:02 Peripheral vascular disease 949078011 Active 2023 Yvonne Belcher [address] [facility], [address], [place], [address], [facility] 4 10:49:07 Thrombosis of splenic artery 3697522629320 9106 Active 2023 Yvonne Belcher [address] [facility], [address], [place], [address], [facility] 4 10:49:17 Left bundle branch block 27714086 Active 2023 Yvonne Belcher [address] [facility], [address], [place], [address], [facility] 4 10:49:21 Palmer's esophagus 472862393 Active 2023 Yvonne Belcher [address] [facility], [address], [place], [address], [facility] 4 10:50:44 Problem Notes None recorded. [...] Every Day Smoker Iveth Diaz MD [address] [facility], [address], [place], [address], [facility] 02/11/2024 18:13:51 Do You Have An [...] Do You Have A Medical Power Of Agriculture Engineer? Yes Information not available 02/11/2024 What [...] (COVID-19) vaccine, UNSPECIFIED 06/25/2020 completed Nikia Montes [facility] 02/11/2024 12:20:14 SARS-COV-2 (COVID-19) vaccine, UNSPECIFIED 07/27/2020 completed Nikia Montes [facility] 02/11/2024 12:20:24 Past Encounters Encounter ID Performer Location Encounter Start Date Encounter Closed Date Diagnosis/Indication Diagnosis SNOMED-CT Code Diagnosis ICD10 Code Diagnosis IMO Codes Diagnosis Note [id number] SAMANTHA BROWNE [address] [address] 02/10/2024 10:12:50 02/11/2024 14:36:04 Limb ischemia 1082327455 9105 I99.8 now s/p right BKA due [...] daily due to bleeding Peripheral arterial insufficiency 9574988875 87092 I73.9 see aboveASA 81 mg dailyfollo wed by vascular Benign pro static hyperplasia 847993112 N40.0 continue flomax 0.8 mg qhsmonitor for outflow issues Gastroesop hageal reflux disease 352155405 K21.9 pantoprazo le 80 mg dailyconsi lia reduction if toleratesm onitor reflux Blood in urine 94553126 R31.9 had inpatientm onitor for clearing Chronic ob structive pulmonary disease 17512214 J44.9 albuterol PRNincruse dailywixel a BIDmonitor resp status Essential hypertension 24903221 I10 assumed as pt is on metoprolol 25 mg daily but no documented h[facility] to [facility] Constipation 42090834 K5 9.00 add colace 100 mg BIDmonitor for improvemen t [id number] Iveth Diaz MD [facility] [address] [address] 02/11/2024 15:43:03 02/12/2024 15:32:16 Limb ischemia 4393939638 9105 I99.8 Will change oxycodone to 10 [...] with surgeon as planned. Peripheral arterial insufficiency 4333639930 52722 I73.89 Z89.511 As above. Benign pro static hyperplasia 191696641 N40.0 No current sxs.Contin ue tamsulosin 0.8 mg qhsMonitor urinary function Gastroesop hageal reflux disease 676080453 K21.9 No current sxs.Contin ue pantoprazo le 80 mg qdMonitor GI sxs. Blood in urine 01166286 R31.0 Had one episode inpt.Now resolved.M onitor for recurrence . Chronic ob structive pulmonary disease 83034267 J43.8 Resp status good at this time.Liv nue incruse ellipta qd, Wixela 500/50 BID, duonebs BID prn and albuterol MDI 2 puffs q 4 hrs prn.Monito r resp status. Essential hypertension 31550447 I10 In good control since here (HTN is on PCP problem list)Liv nue metoprolol 25 mg qdMonitor BP and labs. Constipation 58760963 K5 9.03 Will add miralax 17 gms qd and continue colace 100 mg BIDUse prn meds if needed.Mon itor bowel function. [id number] Nam CONKLIN AT [address] [address] 02/15/2024 10:31:46 02/18/2024 15:29:05 Postoperative wound cellulitis 046327624 L76.82 exam concerning for cellulitis with increased foul smelling discharges tart doxycyclin e 100mg BID x 10 days, probiotic qd x 14 dayscheck CBC w/diff, BMP obtain x-ray R stump r/o osteomonit or for worsening sxs Amputated below knee 299 834289 Z89.519 As above. Limb ischemia 6761463690 9105 I99.8 continue oxycodone to 10 mg q 6 hrs scheduled x 7 days, then 10 mg q 8 hrs scheduled x 7 days then 5 mg q 8 hrs prn.Add oxycodone 10mg q24h prn breakthrou gh paincontin ue APAP 975 mg TID and increase gabapentin to 600 mg TID.Contin ue ASA 81 mg qdF/U with surgeon as planned. [id number] Nam CONKLIN AT [address] [address] 02/19/2024 07:36:20 02/21/2024 12:23:04 Postoperative wound cellulitis 188115270 L76.82 Continue doxycyclin e 100mg BID x 10 days, probiotic qd x 14 dayslabs and x-ray unremarkab lemonitor for resolution Limb ischemia 2796726798 9105 I99.8 continue oxycodone 10 mg q 8 hrs scheduled x 7 days then 5 mg q 8 hrs prn. oxycodone 10mg q24h prn breakthrou gh paincontin ue APAP 975 mg TID and gabapentin to 600 mg qam and afternoon, 900mg qhsContinu e ASA 81 mg qdconsult PMR management of painF/U with surgeon as planned. Amputated below knee 299 693871 Z89.519 As above. [id number] Brandenmkasad Herrera RUBIN AT [address] [address] 02/22/2024 09:19:49 02/25/2024 15:55:50 Postoperative wound cellulitis 674716024 L76.82 Continue doxycyclin e 100mg BID x 10 days, probiotic qd x 14 dayslabs and x-ray unremarkab lemonitor for resolution Limb ischemia 6906567667 9105 I99.8 continue oxycodone 10 mg q 8 hrs scheduled x 7 days then 5 mg q 8 hrs prn. oxycodone 10mg q24h prn breakthrou gh paincontin ue APAP 975 mg TID and gabapentin to 600 mg qam and afternoon, 900mg qhsContinu e ASA 81 mg qdconsult PMR management of painF/U with surgeon as planned. Amputated below knee 299 582263 Z89.519 As above. [id number] Nam DUNCANLEY AT [address] [address] 02/25/2024 07:30:39 02/26/2024 13:58:50 Postoperative wound cellulitis 433048229 L76.82 resolvedmo nitor for recurrence Limb ischemia 4269465921 9105 I99.8 continue oxycodone 10 mg q 8 hrs scheduled x 7 days then 5 mg q 8 hrs prn. oxycodone 10mg BID prn breakthrou gh paincontin ue APAP 975 mg TID, INcrease gabapentin to 900 mg qam and afternoon, 900mg qhsContinu e ASA 81 mg qdconsult PMR management of painF/U with surgeon as planned. Amputated below knee 299 603242 Z89.519 As above. [id number] Nam CONKLIN AT [address] [address] 02/28/2024 08:43:00 02/29/2024 10:22:21 Limb ischemia 5015355455 9105 I99.8 continue oxycodone 10 mg q 8 hrs scheduled x 7 days then 5 mg q 8 hrs prn. oxycodone 10mg BID prn breakthrou gh paincontin ue APAP 975 mg TID, gabapentin to 900 mg TIDContinu e ASA 81 mg qdconsult PMR management of painF/U with surgeon as planned. Amputated below knee 299 118954 Z89.519 As above. [id number] MD RUBIN Enciso AT [address] [address] 03/03/2024 11:24:29 03/27/2024 10:48:50 Limb ischemia 0363484794 9105 I99.8 s/p amputation cleared for discharge with services and ortho f/u in placedisch arged on oxycodone 5 mg q 8 prn pain #23 tablets given at time of dischargep atient will need appointmen t with PCP for f/u discussed with nursing to schedule prior to discharge Amputated below knee 299 462488 Z89.519 As above. Health Concerns Section Related Observation LastModified by Organization Detai ls LastModified Time None Recorded Concern Status LastModified by Organization Details LastModified Time None Recorded Advance Directives Directive Y: Payers Insurance Date Sequence Insurance Name Policy Number Policy Matute Covered Member ID Matute Member ID Guarantor Name 03/27/2024 1 [employer] (MEDICARE REPLACEMENT/ ADVANTAGE - PPO) [id number] Zan Encinas [id number] Zan Encinas Notes Date Note Type Note [...] f/t/h occlusion of bypass now s/p R SUPERVISOR COOLER SERVICE-AT bypass w ePTFE w/ patch angioplasties ([place] 12/01). [facility] [address] [place] [address], [address], [place], [address], [facility] [employer] 02/19/2024 09:56:01 02/22/2024 text/html This is a 63 yo man who is being seen for acute rounding visit Patient doing well todayPain controlledActively participating in therapyself-propelling around unit in w/c His PMH includes HTN, COPD, splenic vein thrombosis (1999), GERD w/ Pamler's, BPH, current smoker and PAD s/p R SFA stent (2021) and recent R SFA-Bkpop bypass w/ vein (07/2023, Dr Bimal Knott), p/w ulcer of R great toe f/t/h occlusion of bypass now s/p R SUPERVISOR COOLER SERVICE-AT bypass w ePTFE w/ patch angioplasties ([place] 12/01). [facility] [address] [facility], [address], [place], [address], [facility] 02/22/2024 11:16:10 02/25/2024 text/html This is a 63 yo man who is being seen for acute rounding visit Patient doing well todayPain controlled with oxycodone. Gabapentin increased last week at f/u vascular with IMprovement. Reported increased pain over the weekend with 1x dose oxycodone 10mg.Actively participating in therapyself-propelling around unit in w/cPMR consulted Patient seen sitting in room in bed in [facility]. He tells me for the most [...] f/t/h occlusion of bypass now s/p R SUPERVISOR COOLER SERVICE-AT bypass w ePTFE w/ patch angioplasties ([place] 12/01). [facility] [address] [facility], [address], [place], [address], [facility] 02/25/2024 11:08:05 02/28/2024 text/html This is a 63 yo man who is being seen for acute rounding visit Patient had f/u vascular on 02/25recs to continue with daily dressing changes noted with small open area on medial aspectNo lining scrubber or prosthesis yet. The site needs to be completely healed first. Can increase gabapentin 900mg TID and decrease oxycodone.f/u 03/11/24 Patient seen lying in bed with hansard reporter doing dressing change. He reports improvement in [...] f/t/h occlusion of bypass now s/p R SUPERVISOR COOLER SERVICE-AT bypass w ePTFE w/ patch angioplasties ([place] 12/01). [facility] [address] [facility], [address], [place], [address], [facility] 02/28/2024 12:14:07 03/03/2024 text/html Patient is a [...] f/u in place Garrett Fletcher MD [address] [facility], [address], [place], [address], [facility] 03/03/2024 11:33:58
--- OUTSIDE RECORDS SUMMARY | 2024-12-16 16:47 | XMS_ITS | Encounter Summary ---
Author Organization [facility] Address [address] [place] [address] [place] [address] Phone Care Team Providers Care Boilermaker Apprentice Name Role Phone Quinton Callahan MD Primary Care Provider [phone] Encounter Details Date Type Department Care Team (Late st Contact Info) Description 11/28/2023 Procedure Pass [facility] [address] [place] [address] Social History Tobacco Use Types Packs/Day Years [...] on filedocumented in this encounter Care Teams Boilermaker Apprentice Relationship Specialty Start Date End Date Quinton Callahan MD [address] [place] [address] [place] [address] PCP - General Medical Oncology 11/23/23 documented as of this encounter Additional Source Comments The information contained in this document represents components of the legal health record. It is not the complete legal health record.[facility]
--- OUTSIDE RECORDS SUMMARY | 2024-12-16 16:48 | XMS_ITS | Clinical Summary ---
Author Organization [facility] Address [address] [place] [address] Phone Care Team Providers Care Senior Solutions Workflow Consultant Name Role Phone Quinton Callahan MD Primary Care Provider [phone] Allergies No known active allergies Medications oxyCODONE-aceta [...] this topic Medical Devices Implanted Type Area Piccoloist Device Identifier Shelf Expiration Date Model / Serial / Lot Graft Vascular 6.0mmx60 70cm Propaten Heparin Carmeda Bioactive Surface Thin Wall Removable Ring Stretch - [id number] Implanted:Qty: 1 on 12/02/2023 by Percy Segundo MD at [facility] STANDARD Right: Vein [employer] [id number] 08/13/2026 [id number] / [id number] / Metal Clip Celd Left Groin 10/2023 Stent Right Femoral Artery Patch Pericardium 2cm 9cm Decellularized Bovine [employer] - [id number] Implanted:Qty: 1 on 12/02/2023 by Percy Segundo MD at [facility] Right: Vein [employer] [id number] 03/24/2025 [id number] / / [id number] Procedures Procedure Name Priority Date/Time Associated Diagnosis Comments BASIC METABOLIC PANEL Routine 02/18/2024 8:01 AM EST Aftercare for amputation stump LIPID PANEL Routine 11/28/2023 1:21 AM EDT from Last 3 Months or Most Recently Relevant to Health Maintenance Results * (ABNORMAL) Basic metabolic panel (02/18/2024 8:01 AM EST) SODIUM 137 133 - 146 mmol/L [facility] CHLORIDE 102 96 - 108 mmol/L [facility] POTASSIUM 4.4 3.3 - 5.1 mmol/L [facility] CO2 25 21 - 35 mmol/L [facility] BUN 13 6 - 19 mg/dL [facility] CREATININE 0.70 0.5 - 1.5 mg/dL [facility] GLUCOSE 101(H) 70 - 99 mg/dL [facility] CALCIUM 9.7 8.4 - 10.3 mg/dL [facility] EGFR 102 >59 mL/min/1.7 3m2 [facility] Comment:Estimated glomerular filtration rate calculated using the CKD-EPI refit equation. ANION GAP 14 10 - 20 mmol/L [facility] Blood 02/18/2024 8:01 AM EST 02/18/2024 10:00 AM EST us Garrett Fletcher MD LAB BLOOD ORDERABLES Final Resul t [facility] [address] [place] [address] * Lipid panel (11/28/2023 1:21 AM EDT) CHOLESTEROL 125 <200 mg/dL [facility] TRIGLYCERIDES 60 35 - 150 mg/dL [facility] HDL 60 40 - 80 mg/dL [facility] CALCULATED LDL 53 50 - 129 mg/dL [facility] VLDL 12 <31 mg/dL [facility] CARDIAC RISK RATIO 2.1 0.0 - 4.0 [facility] Blood 11/28/2023 1:21 AM EDT 11/28/2023 1:35 AM EDT Ayla Owens PA-C LAB BLOOD ORDERABLES Clementina rossi Result [facility] [address] [place] [address] from Last 3 Months or Most Recently Relevant to Health Maintenance Insurance A[employer] PPO MEDICARE REPLACEMENT MEDICARE PART A & B AETNA [facility] MEDICARE REPLACEMENT MEDICARE PART A & B AET[employer] O MEDICARE REPLACEMENT MEDICARE PART A & B [employer] PPO MEDICARE REPLACEMENT MEDICARE PART A & B [facility] MEDICARE REPLACEMENT MEDICARE PART A & B [facility] MEDICARE REPLACEMENT MEDICARE PART A & B Advance Directives For more information, please contact: [phone] (9AM - 5PM [facility], Sunday-Sunday) * Full Code (Latest Code Status on File) Date Activated Date Inactivated Comments 11/27/2023 4:16 PM Question Answer Comments Code Status Confirmed With: Patient Care Teams Senior Solutions Workflow Consultant Relationship Specialty Start Date End Date Quinton Callahan MD [address] [place] [address] [place] [address] PCP - General Medical Oncology 11/23/23 Additional Source Comments The information contained in this document represents components of the legal health record. It is not the complete legal health record.[facility]
--- OUTSIDE RECORDS SUMMARY | 2024-12-16 16:49 | XMS_ITS | Patient Health Record ---
Author Organization [facility] Address [address] [place] [address] Care Team Providers Care Mine Expert Name Role Phone Quinton Callahan MD Primary Care Provider Quinton Mao Unavailable [phone] Reason For Referral No Information Medications Medication [...] Problem Screening for malignant neoplasm of colon (905008517) Encounter for screening for malignant neoplasm of colon (Z12.11) Active confirmed Problem Palmer's esophagus (812163729) Palmer's esophagus without dysplasia (K22.70) Active confirmed Problem Gastroesophageal reflux disease without esophagitis (339657102) Gastroesophageal reflux disease without esophagitis (K21.9) Active confirmed Plan Of Treatment Future Test Test Name Order Date UPPER GI ENDOSCOPY 03/19/2013 UPPER GI ENDOSCOPY 06/11/2019 COLONOSCOPY 06/11/2019 Next Appt Details Provider Name:Quinton Valle Campos , 02/04/2025 01:00:00 PM, [address] [place] [address], [address], [place], [address], Insurance Providers Payer Name Payer Address Payer Phone Subscriber Number Group Number Insured Name Patient Relationship to Insured Coverage Start Date Coverage End Date MEDICARE OF [place] [address] [place] [place] [address] [id number] JUAN FRANCISCO HOWELL Self - patient is the insured Medical (General) History Medical History History ICD Code Colonoscopy in 12/2009 neg e xcept for a hyperplastic polyp, diverticulosis, and internal hemmorhoids GERD with a small area of Ba rrett's esophagus--EGD in 12/2009-small HH-bx neg for dysplasia Splenic vein thrombosis in 1999-- had previously been on Coumadin Denies NM,DM,CVA,renal disease EGD 04/2013 with small area o f Palmer's, no dysplasia nor esophagitis; small hiatal hernia COPD PVD with claudication as below Surgical History Surgery Date(Month/Year) 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 Knott 06/18/2019
== END 2024-12-16 13:47 | disposition home or self-care (01) ==
LOC: HO.HVS 13:03
PROVIDERS: PCP Internal Medicine Medical Oncology; Visit Provider Surgery Vascular Surgery
DX: I73.9 Peripheral vascular disease, unspecified (principal); Z89.512 Acquired absence of left leg below knee
CPT/HCPCS: 99024

== ENCOUNTER → 2024-12-16 13:02 | Outpatient (BNVA) | payer MEDICARE, SELFPAY | PROVIDERS: PCP Internal Medicine Medical Oncology; Visit Provider Surgery Vascular Surgery | DX: Z48.89 Encounter for other specified surgical aftercare (principal); T81.89XA Other complications of procedures, not elsewhere classified, initial encounter; I73.9 Peripheral vascular disease, unspecified | CPT/HCPCS: 99212 ==

== ENCOUNTER 2025-01-06 12:54 | Outpatient (REF) | payer MEDICARE, SELFPAY ==
[2025-01-06 16:08] LABS: Blood Urea Nitrogen 16 mg/dL (9-16); Estimated Glomerular Filt Rate > 60
[2025-01-06 16:47] LABS: Prostate Specific Antigen 1.63 ng/mL (<0.05-4.0)
== END 2025-01-06 12:55 | disposition home or self-care (01) ==
LOC: HO.LAB 12:54
PROVIDERS: Absent Provider Nurse Practitioner Family; PCP Internal Medicine Medical Oncology; Visit Provider Surgery Vascular Surgery
DX: N40.0 Benign prostatic hyperplasia without lower urinary tract symptoms (principal); N28.1 Cyst of kidney, acquired; N13.30 Unspecified hydronephrosis; I73.9 Peripheral vascular disease, unspecified; Z12.5 Encounter for screening for malignant neoplasm of prostate
CPT/HCPCS: 36415; 82565; 84153; 84520; 99212

== ENCOUNTER 2025-01-06 12:54 | Outpatient (AMB) | payer MEDICARE, SELFPAY ==
--- OUTSIDE RECORDS SUMMARY | 2023-08-14 05:30 | XMS_ITS ---
Author Organization [facility] Address [address] [place] [address] Care Team Providers Care Polysomnographic Technologist Name Role Phone Quinton Callahan MD Primary Care Provider Unavailab Quinton Alvarez [phone] REASON FOR VISIT Patient presents today for EGD, NUGENT'S ESOPHAGUS Encounters Encounter Location Date Provider Diagnosis [facility] [address] [facility] [address] [place] [address] 08/14/2023 Quinton Campos Plan Of Treatment Next Appt Details Provider Name:Quinton Campos , 02/04/2025 01:00:00 PM, [address], [address], [place], [address], Progress Notes * ANGELA HERNANDEZOB:1960 (64 yo M)Acc No.[id number]:08/14/2023 Progress Notes Patient: JUAN FRANCISCO TONG Provider: Angeles Campos MD :1960 A ge:63 Y S ex:Male Date:08/14/2023 Address:[address] [place] [address] [place] Pcp:Quinton Callahan MD Subjective: * Chief Complaints: * 1 . Patient presents today for EGD, NUGENT'S ESOPHAGUS. * Medical History: Objective: * Vitals: Assessment: Plan: * Treatment: * * The named appointment provid er may or may not be the originator of this progress note, and it is not deemed complete until electronically signed by the appointment provider. Sign off status: Pending * Provider: Angeles Campos MD Date: 0 08/14/2023 Generated for Tristen bustamante/Jai/Henrry on: 1 03/08/2024 02:38 PM EST
--- OUTSIDE RECORDS SUMMARY | 2024-09-09 06:30 | XMS_ITS ---
Author Organization Quinton Callahan III, MD Address [address] [place] [place] [address] Care Team Providers Care Horse Trader Name Role Phone Dr. Quinton Callahan III Primary Care Provider Allergies Allergen (clinical drug ingredient) Drug/Non Drug Allergy documented on EMR Reaction Allergy Type Onset Date Status No Known Drug Allergy Unknown Drug Allergy Active Reason For Referral Reason Evaluate and Treat Irregular Heart Rate History of A-Fib Diagnosis 1 Irregular heart rate (I49.9) Diagnosis 2 Left bundle branch b lock (I44.7) Diagnosis 3 History of atrial fi brillation (Z86.79) Referral Organization Quinton Callahan III, MD Referring Provider First Name Quinton Referring Provider Last Name London Referring Provider Speciality Internal M edicine Referred Provider [facility] er, Cardiology Referred Provider Specialty Cardiology General Notes Luz Welsh 09/22/2024 11:10:39 AM > Faxed referral with progress note, Luz Welsh 10/09/2024 10:26:29 AM > patient was seen in the past on 08/06/2023 and has a follow up appointment scheduled for 01/28/25 @ 1:15pm. Spoke with Gill stated they did not receive the referral and to refax it so the patient is able to be seen sooner than 01/28/25.Blaise Amber 10/22/2024 02:20:35 PM > Patient is currently Admitted into ., Luz Welsh 11/14/2024 02:25:27 PM > Spoke with Marlena patient has not been contacted or seen sooner. Stated she will be putting in a message to Dr. Ferrer's medical records technician to ask if the patient can be seen with the nurse practitioner. Stated they will contact the patient directly. Referral Priority Routine Referral Appointment Date 11/19/2024 REASON FOR VISIT Right below the knee amputation, Palpitations with irregular heart rate, Benign prostatic hypertrophy, COPD, Umbilical hernia, Tobacco dependence, Osteomyelitis of the right tibia Medications Medication SIG (Take, Route, Frequency, Duration) Notes Start Date End Date Status Atorvastatin Calcium 10 MG Take 1 tablet by mouth once daily Active Breo Ellipta 200-25 MCG/ACT INHALE 1 PUF F BY MOUTH ONCE DAILY Inhalation Active ASA 1 tab Oral Active Metoprolol Succinate ER 25 MG 1 tablet Orally Once a day Active Gabapentin 400 MG 1 capsule Orally fou r times a day 10/31/2023 Active Albuterol Sulfate HFA 108 (90 Base) MCG/ACT INHALE 2 PUFFS BY MOUTH EVERY 4 TO 6 HOURS NEEDED FOR SHORTNESS OF BREATH OR WHEEZING Inhalation Active Tamsulosin HCl 0.4 MG 2 capsule Orally O nce a day Active Pantoprazole Sodium 40 MG Take 2 tablets by mouth once daily Active Social History [...] -moderate cigarette smoker (10-19/day) Vital Signs Temperature 97.2 degrees Fahrenheit 09/10/19 25 Blood pressure systolic 122 mm Hg 09/10/19 25 Blood pressure diastolic 67 mm Hg 025 Heart Rate 42 /min 09/09/2024 Height 73 in 09/09/2024 Weight 184 lbs 09/09/2024 BMI 24.27 kg/m2 09/09/2024 184 Encounters Encounter Location Date Provider Diagnosis Quinton Callahan III, MD [address] [place] [address] [place] [address] 09/09/2024 Quinton Callahan Irregular heart rate I49.9 ; Tobacco dependence F17.200 ; Benign prostatic hyperplasia with lower urinary tract symptoms N40.1 ; Palmer's esophagus determined by endoscopy K22.70 ; Chronic obstructive pulmonary disease, unspecified COPD type J44.9 ; Splenic vein thrombosis I82.890 ; Hiatal hernia K44.9 ; Hoarseness R49.0 ; Peripheral arterial disease I73.9 ; Mixed hyperlipidemia E78.2 and 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 He has had no chest pain. He has had no increase in his chronic dyspnea. Holter monitor has been ordered. He is not anticoagulated. 09/09/2024 Tobacco dependence (ICD-10 - F17.200) I have counseled him about smoking cessation and offered to refer him to smoking cessation programs in the community. He said he would consider this and try to cut down. 09/09/2024 Benign prostatic hyperplasia with lower urinary tract symptoms (ICD-10 - N40.1) The tamsulosin was continued today. He will notify me if his symptoms worsen. He has had no retention. He has symptoms of prostatism. 09/09/2024 Palmer's esophagus determined by endoscopy (ICD-10 - K22.70) He is due for an endoscopy and was referred back to his driver license technician, Dr. Quinton Campos. 09/09/2024 Chronic obstructive pulmonary disease, unspecified COPD type (ICD-10 - J44.9) He has resumed smoking 5 cigarettes per day. He was counseled about this and made aware of the smoking cessation programs in the area. 09/09/2024 Splenic vein thrombosis (ICD-10 - I82.890) There have been no further signs of thromboembolism. 09/09/2024 Hiatal hernia (ICD-1 0 - K44.9) The symptoms of his esophageal reflux and hiatal hernia well controlled with current medications. No change in his regimen as needed. 09/09/2024 Hoarseness (ICD-10 - R49.0) He will be referred to ENT for indirect laryngoscopy. 09/09/2024 Peripheral arterial disease (ICD-10 - I73.9) He is seeing the vascular surgeon eejannethy 2 weeks. 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 The plan is to fit him for a prosthesis. He denies any ulcers or claudication in the left leg. 09/09/2024 Mixed hyperlipidemia (ICD-10 - E78.2) A comprehensive laboratory database with a fasting lipid profile will be obtained. He was continued on his currrent meddications. 09/09/2024 Chronic osteomyeliti s of right tibia with draining sinus (ICD-10 - M86.461) He will be referred back to orthopedics to evaluate the open wound. Plan Of Treatment Medication Medication Name Sig Start Date Stop Date Notes Atorvastatin Calcium 10 MG Take 1 tablet by mouth once daily Breo Ellipta 200-25 MCG/ACT INHALE 1 PUF F BY MOUTH ONCE DAILY Inhalation ASA 1 tab Oral Metoprolol Succinate ER 25 MG 1 tablet Orally Once a day Gabapentin 400 MG 1 capsule Orally fou r times a day 10/31/2023 Albuterol Sulfate HFA 108 (9 0 Base) MCG/ACT INHALE 2 PUFFS BY MOUTH EVERY 4 TO 6 HOURS NEEDED FOR SHORTNESS OF BREATH OR WHEEZING Inhalation Tamsulosin HCl 0.4 MG 2 capsule Orally Once a day Pantoprazole Sodium 40 MG Take 2 tablets by mouth once daily Pending Test Test Name Order Date ECG 7 day holter monitor 09/09/2024 Referrals Referral Date Details 09/09/2024 09/09/2024, Evaluate and Treat Irregular Heart Rate History of A-Fib, Cardiology [facility] Next Appt Details Follow Up: 3 Weeks, Reason: OV Provider Name:Quinton Callahan , 12/08/2025 02:30:00 PM, [address] [place] [address] , [facility] [address], [place], [address], Progress Notes * Ana ENCINAShDOB:1960 (64 yo M)Acc No.[id number]:09/09/2024 Progress Notes Patient: Zan TONG Provider: Angeles Callahan MD :1960 A ge:64 Y S ex:Male Date:09/09/2024 Address:[address] [place], [place] [id number] Subjective: * Chief Complaints: * R ight below the knee amputationPalpitations with irregular heart rateBenign prostatic hypertrophyCOPDUmbilical herniaTobacco dependenceOsteomyelitis of the right tibia * HPI: C OVID-19 Screening: He returns for medical management. A small area has opened and the wound in the bottom of the right leg stump with a clear discharge. He has no decubitus ulcers. He says he feels healthy and well. He is not yet weightbearing. He has noticed episodes of palpitations in the middle of the night which lasted only a minute or 2. He has said he has had these for a few years but they have increased in frequency. He is not anticoagulated. He had a significant episode of bleeding while on Eliquis and his vascular surgeon discontinued that medication. Holter monitor has been ordered.He has an appointment soon with orthopedic surgery. Questions H ave you had any new [...] with exertion d enies. D yspnea on exertion?with moderate activity. S hortness of breath w ith exertion. [...] Muscle aches d enies. P ainful joints R ight knee.?Sciatica d enies. W eakness d enies. S kin: Itching d enies. R husam d enies. S kin lesion(s)?denies. N eurologic: Difficulty speaking H olderness. D izziness d enies. H eadache d enies. L ow back pain d enies. P sychiatric: Depressed mood d enies. * Medical History: * Surgical History: t onsillectomy age 6 tracheotomy due to Krish's angina after dental work 1985upper endoscopy and colonoscopy, [facility], Dr. Quinton Campos 2009upper endoscopy, [facility], Dr. Quinton Campos, Palmer's esophagus 2014arteriogram right lower extremity 05/2019Right geogi-qvv-oqbi amputation 02-04-2024 * Hospitalization/Major Diagno stic Procedure: D enies Past Hospitalization * Family History: F ather: 73 yrs, Diabetes mellitus, coronary artery disease, myocardial infarction, coma with rhabdomyolysis, diagnosed with DM, CVD. M other: alive 80 yrs, Several skin cancers, healthy and well, adult-onset diabetes, hypertension, diagnosed with Cancer, DM, HTN. S iblings: . P aternal Grand Father: , diagnosed with Cancer. P aternal Grand Mother: , diagnosed with Cancer. paternal Grandfather disease Dx with Lung CA. Paternal grandmother disease Dx with pancreatic CA. He has 6 healthy children and 11 healthy grandchildren. One of his siblings has Dqmuinn-Eowoj-Wpmuc disease. One of his children has had an appendectomy. A paternal grandfather of lung cancer and a paternal grandmother of pancreatic cancer. * Social History: T obacco Use: T obacco Use/Smoking P atient is a c urrent smoker H ow often do you smoke cigarettes? e very day H ow many cigarettes a day do you smoke? 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 He was born in [place], [place]. He came to [place] in 1984. He is with 6 children. He has 11 grandchildren. He is a of [employer]. He trained at [employer] and served in [employer]. * Medications: T akingMetoprolol Succinate ER 25 MG Tablet Extended Release 24 Hour 1 tablet Orally Once a day Atorvastatin Calcium 10 MG Tablet Take 1 tablet by mouth once daily ASA 1 tab Oral Breo Ellipta 200-25 MCG/ACT Aerosol Powder Breath Activated INHALE 1 PUFF BY MOUTH ONCE DAILY Inhalation Albuterol Sulfate HFA 108 (90 Base) MCG/ACT Aerosol Solution INHALE 2 PUFFS BY MOUTH EVERY 4 TO 6 HOURS NEEDED FOR SHORTNESS OF BREATH OR WHEEZING Inhalation Gabapentin 400 MG Capsule 1 capsule Orally four times a day Tamsulosin HCl 0.4 MG Capsule 2 capsule Orally Once a day Pantoprazole Sodium 40 MG Tablet Delayed Release Take 2 tablets by mouth once daily Taking Metoprolol Succinate ER 25 MG Tablet Extended Release 24 Hour 1 tablet Orally Once a day Taking Atorvastatin Calcium 10 MG Tablet Take 1 tablet by mouth once daily Taking ASA 1 tab Oral Taking Breo Ellipta 200-25 MCG/ACT Aerosol Powder Breath Activated INHALE 1 PUFF BY MOUTH ONCE DAILY Inhalation Taking Albuterol Sulfate HFA 108 (90 Base) MCG/ACT Aerosol Solution INHALE 2 PUFFS BY MOUTH EVERY 4 TO 6 HOURS NEEDED FOR SHORTNESS OF BREATH OR WHEEZING Inhalation Taking Gabapentin 400 MG Capsule 1 capsule Orally four times a day Taking Tamsulosin HCl 0.4 MG Capsule 2 capsule Orally Once a day Taking Pantoprazole Sodium 40 MG Tablet Delayed Release Take 2 tablets by mouth once daily DiscontinuedNystatin 979059 UNIT/GM Powder 1 application Externally Twice a day ibuprofen 1 tab Oral Tylenol 325 MG Tablet 1 tablet as needed Orally every 4 hrs Eliquis 5 MG Tablet 1 Tablet Orally twice a day Vancomycin HCl 10 GM Solution Reconstituted Intravenous Gabapentin 300 MG Capsule 1 capsule Orally four times a day Doxycycline Hyclate 100 MG Capsule 1 capsule Orally twice a day Medication List reviewed and reconciled with the patientDiscontinued Nystatin 447884 UNIT/GM Powder 1 application Externally Twice a day Discontinued ibuprofen 1 tab Oral Discontinued Tylenol 325 MG Tablet 1 tablet as needed Orally every 4 hrs Discontinued Eliquis 5 MG Tablet 1 Tablet Orally twice a day Discontinued Vancomycin HCl 10 GM Solution Reconstituted Intravenous Discontinued Gabapentin 300 MG Capsule 1 capsule Orally four times a day Discontinued Doxycycline Hyclate 100 MG Capsule 1 capsule Orally twice a day Medication List reviewed and reconciled with the patient * Allergies: N o Known Drug Allergyno[Allergies Verified] Objective: * Vitals: H t: 73, Wt:184, BMI:24.27, BP:122/67, HR:42, Temp:97.2, Ht-cm: 185.42, Wt-k.46. 184. * Examination: G eneral Examination: GENERAL APPEARANCE: p leasant, well nourished, well developed, in no acute distress, calm and relaxed, man. HEAD: a traumatic, normocephalic. EYES: e [...] rhonchi on the RIGHT, rhonchi on the LEFT. BREASTS: no masses palpable bilaterally. ABDOMEN: b owel sounds normal, no ascites, no organomegaly, no mass. RECTAL EXAM: n ot examined. MUSCULOSKELETAL: R ight below the knee amputation, 1 cm area bottom of stone draining a clear liquid. PERIPHERAL PULSES: n ormal. NEUROLOGIC: a lert and oriented, cranial nerves 2-12 grossly intact, deep tendon reflexes 2+ symmetrical, motor strength normal upper and lower extremities, sensory exam intact. PSYCH: a lert, oriented. Assessment: * Assessment: 1. I rregular heart rate - I49.9 (Primary) N otes :These episodes had night have increased lately. He has had no chest pain. He has had no increase in his chronic dyspnea. Holter monitor has been ordered. He is not anticoagulated. 2 . T obacco dependence - F17.200 N otes :I have counseled him about smoking cessation and offered to refer him to smoking cessation programs in the community. He said he would consider this and try to cut down. 3 . B enign prostatic hyperplasia with lower urinary tract symptoms - N40.1? Notes :The tamsulosin was continued today. He will notify me if his symptoms worsen. He has had no retention. He has symptoms of prostatism. 4 . B arrett's esophagus determined by endoscopy - K22.70 N otes :He is due for an endoscopy and was referred back to his driver license technician, Dr. Quinton Campos. 5 . C hronic [...] in his regimen as needed. 8 . H oarseness - R49.0 N otes :He will be referred to ENT for indirect laryngoscopy. 9 . P eripheral arterial disease - I73.9 N otes :He is seeing the vascular surgeon eejannethy 2 weeks. 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 The plan is to fit him for a prosthesis. He denies any ulcers or claudication in the left leg. 1 0. M ixed hyperlipidemia - E78.2 N otes :A comprehensive laboratory database with a fasting lipid profile will be obtained. He was continued on his currrent meddications. 1 1. C hronic osteomyelitis of right tibia with draining sinus - M86.461 ? N otes :He will be referred back to orthopedics to evaluate the open wound. Plan: * Treatment: 2. O thers Referral To:Cardiology [facility] Cardiology Reason:Evaluate and Treat Irregular Heart Rate History of A-Fib * Procedure Codes: * Preventive Medicine: Counseling: S moking/Tobacco Use Patient counseled on the dangers of tobacco use and urged to quit. 0 09/09/2024 Patient Lifestyle Goals P atient wants to quit Treatment Goals S et a quit date, Cut down by 1 cigarette a week Barriers S ocial smoker, Stress Self-Management Plan M rashida a plan to cut down number of cigarettes over time and set a date to work towards quitting * Follow Up: 3 Weeks (Reason: OV) * Images: * Sign off status: Completed true * Provider: Angeles Callahan MD Date: 0 09/09/2024 Generated for Tristen bustamante/Jai/Lvransmitting on: 03/08/2024 02:39 PM EST History and Physical Notes * HPI (History of Present Illness) Category Sub-Category Detail Notes COVID-19 Screening Questions Have you had any new onset fever, chills, cough, congestion, sore throat, shortness of breath, muscle aches?: No Examination Category Sub-Category Detail Notes General Examination GENERAL APPEARANCE: pleasant , well nourished, well developed, in no acute distress, calm and relaxed, man HEAD: atraumatic, normocep halic EYES: eomi, perrla, anicte severiano, conjugate EARS: normal NOSE: septum intact NECK/THYROID: no jugular venous di stention, no carotid bruit, thyroid normal HEART: no clicks, gallops, murmurs, or rubs, regular rhythm, S1, S2 normal, no s3, or vascular bruits LUNGS: , diminished breath sounds throughout, rhonchi on the RIGHT, rhonchi on the LEFT ABDOMEN: bowel sounds normal, no ascites, no organomegaly, no mass NEUROLOGIC: alert and oriented, cranial nerves 2-12 grossly intact, deep tendon reflexes 2+ symmetrical, motor strength normal upper and lower extremities, sensory exam intact SKIN: no suspicious lesion s, anicteric PERIPHERAL PULSES: normal BREASTS: no masses palpable b ilaterally MUSCULOSKELETAL: Right below the knee amputation, 1 cm area bottom of stone draining a clear liquid LYMPH NODES: no enlarged lymph no pinky,spleen normal RECTAL EXAM: not examined PSYCH: alert, oriented ORAL CAVITY: normal, unremarkable Consultation Request Notes Referral Date Referring Provider Referred Provider Not nicholas 09/09/2024 Quinton Callahan [facility], Cardiology Evaluate and Treat Irregular Heart Rate History of A-Fib
--- OUTSIDE RECORDS SUMMARY | 2024-09-30 09:00 | XMS_ITS ---
Author Organization Quinton Callahan III, MD Address [address] [place] [address] [place] [id number] Care Team Providers Care Distiller Name Role Phone Dr. Quinton Callahan III Primary Care Provider [phone] Allergies Allergen (clinical drug ingredient) Drug/Non Drug [...] Provider Specialty Urology General Notes Jolie Gonzalez [facility] 09/30 03:24:56 PM >I called Dr Flores office made patient an appt for 12/03/2024 at 2:45pm pt is established with Dr Flores so no records were sent . [facility] appt information was mailed to patient Referral [...] Specialty Gastroentero logy General Notes Jolie Gonzalez [facility] 09/30 03:23:14 PM >Called Dr Campos office [...] Date Provider Diagnosis Quinton Callahan III, MD [address] [place] [address] [address] [place], [place] [phone] 09/30/2024 Quinton Callahan Chronic osteomyeliti s of [...] endoscopy and was referred back to his intake counselor, Dr. Quinton Campos. 09/30/2024 Tobacco dependence (ICD-10 [...] 500 MG TAKE 1 CAPSULE BY MO [facility] TWICE DAILY Oral Albuterol Sulfate HFA 108 [...] OV no tests Provider Name:Quinton Callahan , 12/08/2025 02:30:00 PM, [address] [place] [address], [place] [address], [place], [address], Progress Notes * ENCINASAna HEREDIAhDOB:1960 (64 yo M)Acc No.[id number]:09/30/2024 Progress Notes Patient: Zan TONG Provider: Angeles Callahan MD :1960 A ge:64 Y S ex:Male Date:09/30/2024 Address:[address] [place], [place] [id number] Subjective: * Chief Complaints: * R ecurrent [...] esophagus and was referred back to his intake counselor today. He umbilical hernia is not symptomatic.? He continues to smoke 17 cigarettes a day and is reducing this number. He had a cyst removed from his back by the retail administrative assistant. Questions H ave you had any new [...] after dental work 1985upper endoscopy and colonoscopy, [facility], Dr. Quinton Campos 2009upper endoscopy, [facility], Dr. Quinton Campos, Palmer's esophagus 2014arteriogram right lower extremity 05/2019Right mrlcm-pou-rvor amputation 02-04-2024 * Hospitalization/Major Diagno stic Procedure: D enies Past Hospitalization * Family History: F ather: 73 yrs, Diabetes mellitus, coronary artery disease, myocardial infarction, coma with rhabdomyolysis, diagnosed with DM, CVD. M other: alive 80 yrs, Several skin cancers, healthy and well, adult-onset diabetes, hypertension, diagnosed with DM, HTN, Cancer. S iblings: . P aternaflo Grand Father: , diagnosed with Cancer. P aternal Grand Mother: , diagnosed with Cancer. paternal Grandfather disease Dx with Lung CA. Paternal grandmother disease Dx with pancreatic CA. He has 6 healthy children and 11 healthy grandchildren. One of his siblings has Majjqwk-Anyoc-Efips disease. 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 He was born in [place], [place]. He came to [place] in 1984. He is with 6 children. He has 11 grandchildren. He is a of [employer]. He trained at [employer] and served in [employer]. * Medications: T akingMetoprolol Succinate ER 25 [...] endoscopy and was referred back to his intake counselor, Dr. Quinton Campos. 8 . T obacco [...] plan for quitting smoking. * Follow Up: e gilles october (Reason: OV no tests) * Images: * Sign off status: Completed true * Provider: Angeles Callahan MD Date: 0 09/30/2024 Generated for Tristen bustamante/Jai/Henrry on: 1 03/08/2024 02:39 PM EST History and Physical [...]
--- OUTSIDE RECORDS SUMMARY | 2024-10-15 12:00 | XMS_ITS ---
Author Organization Quinton Callahan III, MD Address [address] [place] [address] [place] [phone] Care Team Providers Care Event Marketing Assistant Name Role Phone Dr. Quinton Callahan III Primary Care Provider [phone] REASON FOR VISIT Annual Exam Social History Sex Assigned At : Social History Observation Description Sex Assigned At Male Encounters Encounter Location Date Provider Diagnosis Quinton Callahan III, MD [address] [place] [address] [place] [phone] 10/15/2024 Quinton Callahan Plan Of Treatment Next Appt Details Provider Name:Quinton Callahan , 12/08/2025 02:30:00 PM, [address] [place] [address] [place], [phone], Progress Notes * Ana ENCINAShDOB:1960 (64 yo M)Acc No.[id number]:10/15/2024 Progress Notes Patient: Zan TONG Provider: Angeles Callahan MD :1960 A ge:64 Y S ex:Male Date:10/15/2024 Address:[address] [place] [address], [facility] [address] [id number] Subjective: * Chief Complaints: * 1 . Annual Exam. * Medical History: Objective: * Vitals: Assessment: Plan: * Treatment: * Images: * The named appointment provid er may or may not be the originator of this progress note, and it is not deemed complete until electronically signed by the appointment provider. Sign off status: Pending * Provider: Angeles Callahan MD Date: 0 10/15/2024 Generated for Tristen bustamante/Jai/Henrry on: 1 03/08/2024 02:39 PM EST
--- OUTSIDE RECORDS SUMMARY | 2024-10-29 09:30 | XMS_ITS ---
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 Quinton Callahan III Primary Care Provider Allergies Allergen (clinical drug ingredient) Drug/Non Drug Allergy documented on EMR Reaction Allergy Type Onset Date Status No Known Drug Allergy Unknown Drug Allergy Active REASON FOR VISIT Right below the knee amputation, Osteomyelitis right tibia, Palmer's esophagus, COPD, Peripheral arterial disease, Tobacco dependence Medications Medication SIG (Take, Route, Frequency, Duration) Notes Start Date End Date Status Albuterol Sulfate HFA 108 (90 Base) MCG/ACT INHALE 2 PUFFS BY MOUTH EVERY 4 TO 6 HOURS NEEDED FOR SHORTNESS OF BREATH OR WHEEZING Inhalation Active Breo Ellipta 200-25 MCG/ACT INHALE 1 PUF F BY MOUTH ONCE DAILY Inhalation Active ASA 1 tab Oral Active Atorvastatin Calcium 10 MG Take 1 tablet by mouth once daily Active Metoprolol Succinate ER 25 MG 1 tablet Orally Once a day Active levoFLOXacin 750 MG Oral Active Pantoprazole Sodium 40 MG Take 2 tablets by mouth once daily Active Tamsulosin HCl 0.4 MG 2 capsule Orally O nce a day Active Gabapentin 400 MG 1 capsule Orally fou r times a day 10/31/2023 Active Social History Tobacco Use: Social History [...] -moderate cigarette smoker (10-19/day) Vital Signs Temperature 98.9 degrees Fahrenheit 10/30/19 25 Blood pressure systolic 127 mm Hg 10/30/19 25 Blood pressure diastolic 86 mm Hg 025 Heart Rate 66 /min 10/29/2024 Height 73 in 10/29/2024 Weight 187 lbs 10/29/2024 BMI 24.67 kg/m2 10/29/2024 Encounters Encounter Location Date Provider Diagnosis Quinton Callahan III, MD [address] [place] [address] [place] [address] 10/29/2024 Quinton Callahan Chronic osteomyeliti s of right tibia with draining sinus M86.461 ; Tobacco dependence F17.200 ; Peripheral arterial disease I73.9 ; Palmer's esophagus determined by endoscopy K22.70 ; Chronic obstructive pulmonary disease, unspecified COPD type J44.9 ; Hiatal hernia K44.9 and Mixed hyperlipidemia E78.2 Assessments Encounter Date Diagnosis (ICD Code) Assessment Notes Treat ment Notes Treatment Clinical Notes 10/29/2024 Chronic osteomyeliti s of right tibia with draining sinus (ICD-10 - M86.461) He was recently hospitalized and underwent further surgery to try to cure the osteomyelitis. He is currently on an antibiotic. His pain is mild. 10/29/2024 Tobacco dependence (ICD-10 - F17.200) I have counseled him about smoking cessation and offered to refer him to smoking cessation programs in the community. He said he would consider this and try to cut down. 10/29/2024 Peripheral arterial disease (ICD-10 - I73.9) He is seeing the vascular surgeon rita 2 weeks. 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 The plan is to fit him for a prosthesis. He denies any ulcers or claudication in the left leg. 10/29/2024 Palmer's esophagus determined by endoscopy (ICD-10 - K22.70) He is due for an endoscopy and was referred back to his leaded glass installer, Dr. Quinton Campos. 10/29/2024 Chronic obstructive pulmonary disease, unspecified COPD type (ICD-10 - J44.9) He has resumed smoking 5 cigarettes per day. He was counseled about this and made aware of the smoking cessation programs in the area. 10/29/2024 Hiatal hernia (ICD-1 0 - K44.9) The symptoms of his esophageal reflux and hiatal hernia well controlled with current medications. No change in his regimen as needed. 10/29/2024 Mixed hyperlipidemia (ICD-10 - E78.2) A comprehensive laboratory database with a fasting lipid profile will be obtained. He was continued on his currrent meddications. Plan Of Treatment Medication Medication Name Sig Start Date Stop Date Notes Albuterol Sulfate HFA 108 (9 0 Base) MCG/ACT INHALE 2 PUFFS BY MOUTH EVERY 4 TO 6 HOURS NEEDED FOR SHORTNESS OF BREATH OR WHEEZING Inhalation Breo Ellipta 200-25 MCG/ACT INHALE 1 PUF F BY MOUTH ONCE DAILY Inhalation ASA 1 tab Oral Atorvastatin Calcium 10 MG Take 1 tablet by mouth once daily Metoprolol Succinate ER 25 MG 1 tablet Orally Once a day levoFLOXacin 750 MG Oral Pantoprazole Sodium 40 MG Take 2 tablets by mouth once daily Tamsulosin HCl 0.4 MG 2 capsule Orally Once a day Gabapentin 400 MG 1 capsule Orally fou r times a day 10/31/2023 Next Appt Details Follow Up: 4 Weeks, Reason: Annual Exam, OV Provider Name:Quinton Callahan , 12/08/2025 02:30:00 PM, [address] [place] [address], [address], Progress Notes * ENCINASAna HEREDIAhDOB:1960 (64 yo M)Acc No.[id number]:10/29/2024 Patient: Zan TONG Provider: Angeles Callahan MD :1960 A ge:64 Y S ex:Male Date:10/29/2024 Address:[address] [place] [address], [address]-[address] Subjective: * Chief Complaints: * R ight below the knee amputationOsteomyelitis right tibiaBarrett's esophagusCOPDPeripheral arterial diseaseTobacco dependence * HPI: C OVID-19 Screening: . After his last visit he was hospitalized and underwent surgery with debridement of the right tibia and excision of bone. The wound is still open with a drain in it. There is no sign of cellulitis. Drainage is purulent. He has mild to moderate pain in the right leg.? He is currently taking an antibiotic. It is Levaquin. He was wheezing slightly today but he was in sinus rhythm. Questions H ave you had any new onset fever, chills, cough, congestion, sore throat, shortness of breath, muscle aches? N o * ROS: G eneral/Constitutional: pain R ight leg below-knee. C hills d enies. F atigue a [...] after dental work 1985upper endoscopy and colonoscopy, [facility], Dr. Quinton Campos 2009upper endoscopy, [facility], Dr. Quinton Campos, Palmer's esophagus 2014arteriogram right lower extremity 05/2019Right qymix-doq-vree amputation 02-04-2024 * Hospitalization/Major Diagno stic Procedure: [...] healthy grandchildren. One of his siblings has Pbdmruv-Pksbq-Dfjzh disease. 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 He was born in [place], [place]. He came to [place] in 1984. He is with 6 children. He has 11 grandchildren. He is a of [employer]. He trained at [employer] and served in [employer]. * Medications: T akingAtorvastatin Calcium 10 MG Tablet Take 1 tablet [...] Take 2 tablets by mouth once daily levoFLOXacin 750 MG Tablet Oral Taking Atorvastatin Calcium 10 MG Tablet Take [...] 2 tablets by mouth once daily Taking levoFLOXacin 750 MG Tablet Oral Not-Taking/PRNMetoprolol Succinate ER 25 MG Tablet Extended Release 24 Hour 1 tablet Orally Once a day Not-Taking/PRN Metoprolol Succinate ER 25 MG Tablet Extended Release 24 Hour 1 tablet Orally Once a day DiscontinuedCephalexin 500 MG Capsule TAKE 1 CAPSULE BY MOUTH TWICE DAILY Oral Medication List reviewed and reconciled with the patientDiscontinued Cephalexin 500 MG Capsule TAKE 1 CAPSULE BY MOUTH TWICE DAILY Oral Medication List reviewed and reconciled with the patient * Allergies: N o Known Drug Allergyno[Allergies Verified] Objective: * Vitals: H t: 73, Wt:187, BMI:24.67, BP:127/86, HR:66, Temp:98.9, Ht-cm: 185.42, Wt-k.82. * P ast Orders: Lab:Routine Culture * Collection Date 10/20/2024 10/10/2024 10/10/2024 Collection Time 02:58 PM 10:51 AM 10:40 AM Order Date 10/20/2024 10/10/2024 10/10/2024 Routine Culture 2+ NR 1+ O:STAAUR NR NR Staphylococcus aureus Clindamycin NR >=8 R <=0.25 S Erythromycin NR >=8 R <=0.25 S Levofloxacin NR <=0.12 S 0.25 S Oxacillin NR >=4 R 0.5 S Penicillin-G NR >=0.5 R >=0.5 R Tetracycline NR >=16 R <=1 S Trimethoprim/Sulfamethoxazo le NR 160 R <=10 S Vancomycin NR 1 S NR O:CORSPE Corynebacterium spec ies NR NR Gentamicin <=1 S NR NR O:PSEAER Pseudomonas aerugino sa NR NR Meropenem 0.5 S NR NR Piperacillin/Tazobactam <=4 S NR NR Cefepime 2 S NR NR Ciprofloxacin 0.12 S NR NR ???Lab:Anaerobic Culture (Order Date - 10/10/2024) (Collection Date & Time - 10/10/2024 10:51 AM)?ValueReference Range?Anaerobic CultureNo anaerobes isolated.- * Lab:Gram stain * Collection Date 10/20/2024 10/10/2024 10/10/2024 Collection Time 02:58 PM 10:51 AM 10:40 AM Order Date 10/20/2024 10/10/2024 10/10/2024 Gram stain 1+ Gram-positive eder ci No organisms seen No organisms seen * Lab:Complete Blood Count no Diff * Collection Date 10/21/2024 10/10/2024 02/07/2024 Collection Time 06:27 AM 09:32 AM 05:57 AM Order Date 10/21/2024 10/10/2024 02/07/2024 White Blood Count 6.8 (Ref Range: 4.8-10.8 X10*3/uL) 8.2 (Ref Range: 4.8-10.8 X10*3/uL) 9.0 (Ref Range: 4.8-10.8 X10*3/uL) Red Blood Count 4.43 L (Ref Range: 4.60-5.80 X10*6/uL) 5.04 (Ref Range: 4.60-5.80 X10*6/uL) 3.45 L (Ref Range: 4.60-5.80 X10*6/uL) Hemoglobin 13.9 L (Ref Range: 14.0-18.0 g/dl) 15.7 (Ref Range: 14.0-18.0 g/dl) 10.1 L (Ref Range: 14.0-18.0 g/dl) Hematocrit 40.9 L (Ref Range: 42.0-52.0 %) 46.8 (Ref Range: 42.0-52.0 %) 31.4 L (Ref Range: 42.0-52.0 %) Mean Corpuscular Volume 92.3 (Ref Range: 80.0-98.0 fL) 92.9 (Ref Range: 80.0-98.0 fL) 91.0 (Ref Range: 80.0-98.0 fL) Mean Corpuscular Hemoglobin 31.4 (Ref Range: 27.0-33.0 pg) 31.2 (Ref Range: 27.0-33.0 pg) 29.3 (Ref Range: 27.0-33.0 pg) Mean Corpuscular HGB Conc 34.0 (Ref Range: 31.0-36.0 g/dl) 33.5 (Ref Range: 31.0-36.0 g/dl) 32.2 (Ref Range: 31.0-36.0 g/dl) Red Cell Distribution Width 13.2 (Ref Range: 11.0-16.0 %) 13.1 (Ref Range: 11.0-16.0 %) 13.5 (Ref Range: 11.0-16.0 %) Platelet Count 211 (Ref Range: 160-400 X10*3/uL) 251 (Ref Range: 160-400 X10*3/uL) 352 (Ref Range: 160-400 X10*3/uL) Mean Platelet Volume 10.3 (Ref Range: 9.4-12.4 fL) 9.4 (Ref Range: 9.4-12.4 fL) 9.3 L (Ref Range: 9.4-12.4 fL) NRBC Pct Auto 0.0 (Ref Range: 0.0-0.2 /100WBC) 0.0 (Ref Range: 0.0-0.2 /100WBC) 0.0 (Ref Range: 0.0-0.2 /100WBC) NRBC Abs Auto 0.000 (Ref Range: 0.0-0.012 X10*3/uL) 0.000 (Ref Range: 0.0-0.012 X10*3/uL) 0.000 (Ref Range: 0.0-0.012 X10*3/uL) * Lab:Basic Metabolic Panel * Collection Date 10/21/2024 10/10/2024 05/27/2024 Collection Time 06:27 AM 09:32 AM 05:55 AM Order Date 10/21/2024 10/10/2024 05/27/2024 Sodium 142 (Ref Range: 135-145 mmol/L) 142 (Ref Range: 135-145 mmol/L) 140 (Ref Range: 135-145 mmol/L) Blood Urea Nitrogen 13 (Ref Range: 9-16 mg/dL) 18 H (Ref Range: 9-16 mg/dL) 11 (Ref Range: 9-16 mg/dL) Creatinine 0.94 (Ref Range: 0.5-1.4 mg/dL) 1.15 (Ref Range: 0.5-1.4 mg/dL) 0.80 (Ref Range: 0.5-1.4 mg/dL) Glucose Random 85 (Ref Range: 60-115 mg/dL) 95 (Ref Range: 60-115 mg/dL) 102 (Ref Range: 60-115 mg/dL) Calcium 8.6 (Ref Range: 8.4-10.2 mg/dL) 9.6 (Ref Range: 8.4-10.2 mg/dL) 9.0 (Ref Range: 8.4-10.2 mg/dL) Potassium 4.3 (Ref Range: 3.3-5.1 mmol/L) 4.5 (Ref Range: 3.3-5.1 mmol/L) 3.8 (Ref Range: 3.3-5.1 mmol/L) Chloride 108 (Ref Range: 96-108 mmol/L) 107 (Ref Range: 96-108 mmol/L) 107 (Ref Range: 96-108 mmol/L) Carbon Dioxide 26 (Ref Range: 22-29 mmol/L) 26 (Ref Range: 22-29 mmol/L) 27 (Ref Range: 22-29 mmol/L) Anion Gap 12 (Ref Range: 12-20) 14 (Ref Range: 12-20) 10 L (Ref Range: 12-20) Estimated Glomerular Filt Rate > 60 > 60 > 60 Creatinine Clr Calc Pharmacy 84.8 69.3 99.6 * Lab:Complete Blood Count Aut o Diff * Collection Date 10/20/2024 06/30/2024 05/27/2024 Collection Time 12:47 PM 11:45 AM 05:55 AM Order Date 10/20/2024 06/30/2024 05/27/2024 White Blood Count 8.1 (Ref Range: 4.8-10.8 X10*3/uL) 8.9 (Ref Range: 4.8-10.8 X10*3/uL) 9.2 (Ref Range: 4.8-10.8 X10*3/uL) Red Blood Count 4.59 L (Ref Range: 4.60-5.80 X10*6/uL) 5.18 (Ref Range: 4.60-5.80 X10*6/uL) 5.17 (Ref Range: 4.60-5.80 X10*6/uL) Hemoglobin 14.4 (Ref Range: 14.0-18.0 g/dl) 15.8 (Ref Range: 14.0-18.0 g/dl) 15.4 (Ref Range: 14.0-18.0 g/dl) Hematocrit 42.8 (Ref Range: 42.0-52.0 %) 47.4 (Ref Range: 42.0-52.0 %) 46.3 (Ref Range: 42.0-52.0 %) Mean Corpuscular Volume 93.2 (Ref Range: 80.0-98.0 fL) 91.5 (Ref Range: 80.0-98.0 fL) 89.6 (Ref Range: 80.0-98.0 fL) Mean Corpuscular Hemoglobin 31.4 (Ref Range: 27.0-33.0 pg) 30.5 (Ref Range: 27.0-33.0 pg) 29.8 (Ref Range: 27.0-33.0 pg) Mean Corpuscular HGB Conc 33.6 (Ref Range: 31.0-36.0 g/dl) 33.3 (Ref Range: 31.0-36.0 g/dl) 33.3 (Ref Range: 31.0-36.0 g/dl) Red Cell Distribution Width 13.2 (Ref Range: 11.0-16.0 %) 13.0 (Ref Range: 11.0-16.0 %) 13.8 (Ref Range: 11.0-16.0 %) Platelet Count 233 (Ref Range: 160-400 X10*3/uL) 286 (Ref Range: 160-400 X10*3/uL) 286 (Ref Range: 160-400 X10*3/uL) Mean Platelet Volume 9.7 (Ref Range: 9.4-12.4 fL) 9.6 (Ref Range: 9.4-12.4 fL) 9.6 (Ref Range: 9.4-12.4 fL) Neutrophils Percent Auto 70.6 (Ref Range: 45-73 %) 69.3 (Ref Range: 45-73 %) 65.6 (Ref Range: 45-73 %) Imm Gran Pct Auto 0.4 (Ref Range: 0.0-0.4 %) 0.5 H (Ref Range: 0.0-0.4 %) 0.4 (Ref Range: 0.0-0.4 %) Lymphocytes Percent Auto 16.8 L (Ref Range: 20-40 %) 16.4 L (Ref Range: 20-40 %) 19.0 L (Ref Range: 20-40 %) Monocytes Percent Auto 8.8 (Ref Range: 2-11 %) 9.3 (Ref Range: 2-11 %) 11.2 H (Ref Range: 2-11 %) Eosinophils Percent Auto 2.8 (Ref Range: 0-4 %) 3.7 (Ref Range: 0-4 %) 2.9 (Ref Range: 0-4 %) Basophils Percent Auto 0.6 (Ref Range: 0-2 %) 0.8 (Ref Range: 0-2 %) 0.9 (Ref Range: 0-2 %) NRBC Pct Auto 0.0 (Ref Range: 0.0-0.2 /100WBC) 0.0 (Ref Range: 0.0-0.2 /100WBC) 0.0 (Ref Range: 0.0-0.2 /100WBC) Neutrophils Absolute Auto 5.7 (Ref Range: 2.0-8.3 x10*3/uL) 6.1 (Ref Range: 2.0-8.3 x10*3/uL) 6.0 (Ref Range: 2.0-8.3 x10*3/uL) Imm Gran Abs Auto 0.03 (Ref Range: 0.00-0.03 X10*3/uL) 0.04 H (Ref Range: 0.00-0.03 X10*3/uL) 0.04 H (Ref Range: 0.00-0.03 X10*3/uL) Lymphocytes Absolute Auto 1.4 (Ref Range: 1.2-4.9 X10*3/uL) 1.5 (Ref Range: 1.2-4.9 X10*3/uL) 1.8 (Ref Range: 1.2-4.9 X10*3/uL) Monocytes Absolute Auto 0.7 (Ref Range: 0.1-1.2 X10*3/uL) 0.8 (Ref Range: 0.1-1.2 X10*3/uL) 1.0 (Ref Range: 0.1-1.2 X10*3/uL) Eosinophils Absolute Auto 0.2 (Ref Range: 0.0-0.4 X10*3/uL) 0.3 (Ref Range: 0.0-0.4 X10*3/uL) 0.3 (Ref Range: 0.0-0.4 X10*3/uL) Basophils Absolute Auto 0.1 (Ref Range: 0.0-0.2 X10*3/uL) 0.1 (Ref Range: 0.0-0.2 X10*3/uL) 0.1 (Ref Range: 0.0-0.2 X10*3/uL) NRBC Abs Auto 0.000 (Ref Range: 0.0-0.012 X10*3/uL) 0.000 (Ref Range: 0.0-0.012 X10*3/uL) 0.000 (Ref Range: 0.0-0.012 X10*3/uL) * Lab:Erythrocyte Sedimentatio n Rate * Collection Date 10/20/2024 05/26/2024 01/18/2024 Collection Time 12:47 PM 05:08 PM 03:28 PM Order Date 10/20/2024 05/26/2024 01/18/2024 Erythrocyte Sedimentation Rate 5 (Ref Range: 0-15 MM/HR) 10 (Ref Range: 0-15 MM/HR) 92 H (Ref Range: 0-15 MM/HR) * Lab:Comprehensive Met. Panel * Collection Date 10/20/2024 05/26/2024 01/18/2024 Collection Time 12:47 PM 03:18 PM 03:28 PM Order Date 10/20/2024 05/26/2024 01/18/2024 Sodium 139 (Ref Range: 135-145 mmol/L) 138 (Ref Range: 135-145 mmol/L) 134 L (Ref Range: 135-145 mmol/L) Bilirubin Total 0.4 (Ref Range: 0.0-1.0 mg/dL) 0.4 (Ref Range: 0.0-1.0 mg/dL) 2.4 H (Ref Range: 0.0-1.0 mg/dL) Aspartate Amino Transferase 21 (Ref Range: 5-37 U/L) 23 (Ref Range: 5-37 U/L) 147 H (Ref Range: 5-37 U/L) Alanine Aminotransferase 16 (Ref Range: 0-40 U/L) 13 (Ref Range: 0-40 U/L) 280 H (Ref Range: 0-40 U/L) Total Protein 5.9 L (Ref Range: 6.5-8.0 g/dL) 6.5 (Ref Range: 6.5-8.0 g/dL) 6.7 (Ref Range: 6.5-8.0 g/dL) Albumin Level 3.8 (Ref Range: 3.5-5.0 g/dL) 3.6 (Ref Range: 3.5-5.0 g/dL) 3.7 (Ref Range: 3.5-5.0 g/dL) Alkaline Phosphatase 75 (Ref Range: 39-117 U/L) 92 (Ref Range: 39-117 U/L) 382 H (Ref Range: 39-117 U/L) Potassium 4.3 (Ref Range: 3.3-5.1 mmol/L) 4.3 (Ref Range: 3.3-5.1 mmol/L) 4.2 (Ref Range: 3.3-5.1 mmol/L) Chloride 107 (Ref Range: 96-108 mmol/L) 107 (Ref Range: 96-108 mmol/L) 102 (Ref Range: 96-108 mmol/L) Carbon Dioxide 26 (Ref Range: 22-29 mmol/L) 21 L (Ref Range: 22-29 mmol/L) 23 (Ref Range: 22-29 mmol/L) Anion Gap 10 L (Ref Range: 12-20) 14 (Ref Range: 12-20) 13 (Ref Range: 12-20) Blood Urea Nitrogen 18 H (Ref Range: 9-16 mg/dL) 16 (Ref Range: 9-16 mg/dL) 16 (Ref Range: 9-16 mg/dL) Creatinine 1.07 (Ref Range: 0.5-1.4 mg/dL) 0.80 (Ref Range: 0.5-1.4 mg/dL) 0.80 (Ref Range: 0.5-1.4 mg/dL) Estimated Glomerular Filt Rate > 60 > 60 > 60 Glucose Random 94 (Ref Range: 60-115 mg/dL) 94 (Ref Range: 60-115 mg/dL) 119 H (Ref Range: 60-115 mg/dL) Calcium 8.9 (Ref Range: 8.4-10.2 mg/dL) 9.1 (Ref Range: 8.4-10.2 mg/dL) 9.6 (Ref Range: 8.4-10.2 mg/dL) Creatinine Clr Calc Pharmacy 74.5 99.6 101.0 * Lab:C Reactive Protein * Collection Date 10/20/2024 05/26/2024 01/18/2024 Collection Time 12:47 PM 03:18 PM 03:28 PM Order Date 10/20/2024 05/26/2024 01/18/2024 C Reactive Protein 0.52 H (Ref Range: < or = 0.50 mg/dL) 1.01 H (Ref Range: < or = 0.50 mg/dL) 14.10 H (Ref Range: < or = 0.50 mg/dL) * Lab:Hold Lav - Possible Matt tology * Collection Date 10/23/2024 10/22/2024 05/29/2024 Collection Time 07:19 AM 05:47 AM 05:09 AM Order Date 10/23/2024 10/22/2024 05/29/2024 Hold Lav - Possible Hematology SEE NOTE SEE NOTE SEE NOTE * Lab:Creatinine * Collection Date 10/23/2024 10/22/2024 06/30/2024 Collection Time 07:19 AM 05:47 AM 11:45 AM Order Date 10/23/2024 10/22/2024 06/30/2024 Creatinine 1.14 (Ref Range: 0.5-1.4 mg/dL) 1.09 (Ref Range: 0.5-1.4 mg/dL) 1.10 (Ref Range: 0.5-1.4 mg/dL) Creatinine Clr Calc Pharmacy 69.9 73.1 NR Estimated Glomerular Filt Rate > 60 > 60 > 60 * Imaging:XR knee RT 4V * Performed Date 10/20/2024 05/26/2024 11:56 AM 02:52 PM Order Date 10/20/2024 05/26/2024 * Lab:Vancomycin Random * Collection Date 10/23/2024 10/22/2024 10/21/2024 Collection Time 01:58 PM 01:56 PM 02:01 PM Order Date 10/23/2024 10/22/2024 10/21/2024 Vancomycin Random 18.9 (Ref Range: 15-20 mcg/mL) 12.4 L (Ref Range: 15-20 mcg/mL) 12.7 L (Ref Range: 15-20 mcg/mL) ???Lab:TSH reflex Free T4 (Order Date - 10/21/2024) (Collection Date & Time - 10/21/2024 06:27 AM)?ValueReference Range?TSH reflex Free T41.34 0.32-4.0 - uIU/mL * Examination: G eneral Examination: GENERAL APPEARANCE: [...] normal, no s3, or vascular bruits. LUNGS: c lear to auscultation . BREASTS: no masses palpable bilaterally. ABDOMEN: b owel sounds normal, no ascites, no organomegaly, no mass. RECTAL EXAM: n ot examined. MUSCULOSKELETAL: L eft leg is unremarkable, right below-knee amputation, recent surgical incision on stump, 3 inch open area with drain present. PERIPHERAL PULSES: n ormal. NEUROLOGIC: a lert and oriented, cranial nerves 2-12 grossly intact, deep tendon reflexes 2+ symmetrical, motor strength normal upper and lower extremities, sensory exam intact. PSYCH: a lert, oriented. Assessment: * Assessment: 1. C hronic osteomyelitis of right tibia with draining sinus - M86.461 (Primary) ?Notes :He was recently hospitalized and underwent further surgery to try to cure the osteomyelitis. He is currently on an antibiotic. His pain is mild. 2 . T obacco dependence - F17.200 N otes :I have counseled him about smoking cessation and offered to refer him to smoking cessation programs in the community. He said he would consider this and try to cut down. 3 . P eripheral arterial disease - I73.9 N otes :He is seeing the vascular surgeon eebrock 2 weeks. 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 The plan is to fit him for a prosthesis. He denies any ulcers or claudication in the left leg. 4 . B arrett's esophagus determined by endoscopy - K22.70 N otes :He is due for an endoscopy and was referred back to his leaded glass installer, Dr. Quinton Campos. 5 . C hronic obstructive pulmonary disease, unspecified COPD type - J44.9 N otes :He has resumed smoking 5 cigarettes per day. He was counseled about this and made aware of the smoking cessation programs in the area. 6 . H iatal hernia - K44.9 N otes :The symptoms of his esophageal reflux and hiatal hernia well controlled with current medications. No change in his regimen as needed. 7 . M ixed hyperlipidemia - E78.2 N otes :A comprehensive laboratory database with a fasting lipid profile will be obtained. He was continued on his currrent meddications. Plan: * Treatment: 2. O thers Continue Atorvastatin Calcium Tablet, 10 MG, Take 1 [...] tobacco use and urged to quit. 0 10/29/2024 Patient Lifestyle Goals P atient wants to [...] smoking. * Follow Up: 4 Weeks (Reason: Annual Exam, OV) * Images: * Sign off status: Completed true * Provider: Angeles Callahan MD Date: 0 10/29/2024 Generated for Tristen bustamante/Jai/eTransmitting on: 1 03/08/2024 02:38 PM EST History and Physical Notes * [...] BREASTS: no masses palpable b ilaterally MUSCULOSKELETAL: Left leg is unremark able, right below-knee amputation, recent surgical incision on stump, 3 inch open area with drain present LYMPH NODES: no enlarged lymph no pinky,spleen normal RECTAL EXAM: not examined PSYCH: alert, oriented ORAL CAVITY: normal, unremarkable
--- OUTSIDE RECORDS SUMMARY | 2024-12-02 10:00 | XMS_ITS ---
Author Organization Quinton Callahan III, MD Address [address] [place] [address] Care Team Providers Care Pari Mutuel Ticket Cashier Name Role Phone Dr. Quinton Callahan III Primary Care Provider Allergies Allergen (clinical drug ingredient) Drug/Non Drug Allergy documented on EMR Reaction Allergy Type Onset Date Status No Known Drug Allergy Unknown Drug Allergy Active No Known Food Allergy Unknown Drug Allergy Active REASON FOR VISIT Annual Exam Medications Medication SIG (Take, Route, Frequency, Duration) [...] 2 tablets by mouth once daily Active Metoprolol Succinate ER 25 MG 1 tablet Orally Once a day Active Tamsulosin HCl 0.4 MG 2 capsule Orally O nce a day Active Atorvastatin Calcium 10 MG Take 1 tablet by mouth once daily Active Breo Ellipta 200-25 MCG/ACT INHALE 1 PUF F BY MOUTH ONCE DAILY Inhalation Active ASA 1 tab Oral Active Social History Tobacco Use: Social History Observation Description Date Details (start date - stop date) Current Smoker NA - NA Sex Assigned At : Social History Observation Description Sex Assigned At Male Tobacco Control (Standard) Question Answer Notes Tobacco use: Current smoker How often do you smoke cigarettes? Every day How many cigarettes a day do you smoke? 11-20 How soon after you wake up d o you smoke your first cigarette? Within 5 minutes Are you interested in quitting? Thinking about q uitting Additional Findings: Tobacco user Modera te cigarette smoker (10-19 cigs/day) AUDIT-C (Standard) Question Answer Notes Did you have a drink containing alcohol in the p ast year? No Points 0 Interpretation Negative Vital Signs Temperature 100.1 degrees Fahrenheit 025 Blood pressure systolic 135 mm Hg 12/03/19 25 Blood pressure diastolic 81 mm Hg Heart Rate 64 /min 12/02/2024 Respiratory Rate 15 /min 12/02/2024 Height 73 in 12/02/2024 Weight 197 lbs 12/02/2024 BMI 25.99 kg/m2 12/02/2024 Oximetry 96 % 12/02/2024 Encounters Encounter Location Date Provider Diagnosis Quinton Callahan III, MD [address] [place] [address] [place] [phone] 12/02/2024 Quinton Callahan Chronic osteomyeliti s of right tibia with draining sinus M86.461 ; Chronic obstructive pulmonary disease, unspecified COPD type J44.9 ; Palmer's esophagus determined by endoscopy K22.70 ; Benign prostatic hyperplasia with lower urinary tract symptoms N40.1 ; Splenic vein thrombosis I82.890 ; Hiatal hernia K44.9 ; Tobacco dependence F17.200 and Overweight E66.3 Assessments Encounter Date Diagnosis (ICD Code) Assessment Notes Treat ment Notes Treatment Clinical Notes 12/02/2024 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 Vascular has referred him to infectious disease for an opinion. The patient I today discussed the possibility of an qtfzz-cgi-kmxv amputation and what it would be like walking. 12/02/2024 Chronic obstructive pulmonary disease, unspecified COPD type (ICD-10 - J44.9) He has resumed smoking 5 cigarettes per day. He was counseled about this and made aware of the smoking cessation programs in the area. 12/02/2024 Palmer's esophagus determined by endoscopy (ICD-10 - K22.70) He is due for an endoscopy and was referred back to his director medical affairs , Dr. Quinton Campos. 12/02/2024 Benign prostatic hyperplasia with lower urinary tract symptoms (ICD-10 - N40.1) The tamsulosin was continued today. He will notify me if his symptoms worsen. He has had no retention. He has symptoms of prostatism. 12/02/2024 Splenic vein thrombosis (ICD-10 - I82.890) There have been no further signs of thromboembolism. 12/02/2024 Hiatal hernia (ICD-10 - K44.9) The symptoms of his esophageal reflux and hiatal hernia well controlled with current medications. No change in his regimen as needed. 12/02/2024 Tobacco dependence (ICD-10 - F17.200) I have counseled him about smoking cessation and offered to refer him to smoking cessation programs in the community. He said he would consider this and try to cut down. 12/02/2024 Overweight (ICD-10 - E66.3) His body mass index is 29. We discussed diet and nutrition. I recommended aggressive weight loss and sodium restriction. Plan Of Treatment Medication Medication Name Sig Start Date Stop Date Notes Gabapentin 400 MG 1 capsule Orally fou r times a day 10/31/2023 Albuterol Sulfate HFA 108 (9 0 Base) MCG/ACT INHALE 2 PUFFS BY MOUTH EVERY 4 TO 6 HOURS NEEDED FOR SHORTNESS OF BREATH OR WHEEZING Inhalation Pantoprazole Sodium 40 MG Take 2 tablets by mouth once daily Metoprolol Succinate ER 25 MG 1 tablet Orally Once a day Tamsulosin HCl 0.4 MG 2 capsule Orally Once a day Atorvastatin Calcium 10 MG Take 1 tablet by mouth once daily Breo Ellipta 200-25 MCG/ACT INHALE 1 PUF F BY MOUTH ONCE DAILY Inhalation ASA 1 tab Oral Next Appt Details Follow Up: 4 Weeks, Reason: OV Provider Name:Quinton Callahan , 12/08/2025 02:30:00 PM, [address] [place] [address] [address] [address], [place], [address], Progress Notes * Ana ENCINAShDOB:1960 (64 yo M)Acc No.[id number]:12/02/2024 Progress Notes Patient: Zan TONG Provider: Angeles Callahan MD :1960 A ge:64 Y S ex:Male Date:12/02/2024 Address:[address] [place] [address] [phone] Subjective: * Chief Complaints: * A nnual Exam * HPI: D epression Screening: .He returns for ongoing medical management of several acute problems. He has recently undergone a right below the knee amputation for irreversible ischemia. This has been complicated by osteomyelitis of the distal tibial fragment. He saw his vascular surgeon this morning who noted worsening of the discharge from the opening in the stone and referred him back to infectious disease. He came. Afterwards. Examination stump showed a much larger open area in the incision with copious purulent discharge. To stump is pink and warm. It is likely he is going to need an higiy-rsq-amyj amputation but we will see what infectious disease service first. He also reports that he was bending forward his wheelchair to seed cone picker something on the floor he felt a snap in the right side of his chest. Examination today the costochondral margin of one of the ribs severely tender to palpation. It is likely he disrupted this joint with The unusual stress. He declined the offer of an x-ray. We'll contiinue with current therapy. Also, he is due for colonoscopy with Dr. Quinton Campos at [facility]. This is currently being arranged. PHQ-9 L ittle interest or pleasure in doing things?Not at all F eeling down, depressed, or hopeless N ot at all T rouble falling or staying asleep, or sleeping too much M ore than half the days F eeling tired or having little energy S everal days P oor appetite or overeating N ot at all F eeling bad about yourself or that you are a failure, or have let yourself or your family down N ot at all T rouble concentrating on things, such as reading the newspaper or watching television N ot at all M oving or speaking so slowly that other people could have noticed; or the opposite, being so fidgety or restless that you have been moving around a lot more than usual N ot at all T houghts that you would be better off or of hurting yourself in some way N ot at all T otal Score 3 I nterpretation M inimal Depression C OVID-19 Screening: Questions H ave you had any new onset fever, chills, cough, congestion, sore throat, shortness of breath, muscle aches? N o S TSERING Questions: SDOH Questions I n the past year have you or any family members you live with been unable to get any of the following when it was really needed? Check all that apply: D ecline to answer F all Risk Screening: Fall History H ave you had any falls with injury in the past year? N o H ave you had two or more falls in the past year? N o F all Risk Assessment: N o falls in the past year * ROS: G eneral/Constitutional: pain R ight leg stump, otherwise only normal aches and pains. C hills d enies. F atigue a dmits. F ever d enies. E NT: Decreased hearing d enies. R espiratory: Cough n on-productive. C ardiovascular: Chest pain with exertion a dmits. D yspnea on exertion?with moderate activity. S hortness of breath t hat is moderate. G astrointestinal: Constipation d enies. D ecreased appetite d enies.?Diarrhea d enies. H eartburn d enies. N ausea d enies. R ectal bleeding?denies. V omiting d enies. H ematology: bruising [...] after dental work 1985upper endoscopy and colonoscopy, [facility], Dr. Quinton Campos 2009upper endoscopy, [facility], Dr. Quinton Campos, Palmer's esophagus 2014arteriogram right lower extremity 05/2019Right panlg-gyz-xvnk amputation 02-04-2024 * Hospitalization/Major Diagno stic Procedure: [...] healthy grandchildren. One of his siblings has Eshfemn-Vyifp-Phuam disease. One of his children has had an appendectomy. A paternal grandfather of lung cancer and a paternal grandmother of pancreatic cancer. * Social History: T obacco Use: T obacco Control (Standard) T obacco use: C urrent smoker H ow often do you smoke cigarettes? E very day H ow many cigarettes a day do you smoke? 1 1-20 H ow soon after you wake up do you smoke your first cigarette? W ithin 5 minutes A re you interested in quitting? T hinking about quitting A dditional Findings: Tobacco user M oderate cigarette smoker (10-19 cigs/day) D rugs/Alcohol: D rugs H ave you used drugs other than those for medical reasons in the past 12 months? Y es M arijuana? Y es D rug/Alcohol: A CHIQUITA-C (Standard) D id you have a drink containing alcohol in the past year? 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 He was born in [place], [place]. He came to [place] in 1984. He is with 6 children. He has 11 grandchildren. He is a of [employer]. He trained at [employer] and served in [employer]. * Medications: T akingAtorvastatin Calcium 10 MG [...] Take 2 tablets by mouth once daily Metoprolol Succinate ER 25 MG Tablet Extended [...] Hour 1 tablet Orally Once a day DiscontinuedlevoFLOXacin 750 MG Tablet Oral Medication List reviewed and reconciled with the patientDiscontinued levoFLOXacin 750 MG Tablet Oral Medication List reviewed and reconciled with the patient * Allergies: N o Known Drug AllergyNo Known Food Allergyno[Allergies Verified] Objective: * Vitals: H t: 73, Wt:197, BMI:25.99, BP:135/81, HR:64, RR:15, Temp:100.1, Oxygen sat %:96, Ht-cm: 185.42, Wt-k.36. * P ast Orders: Imaging:XR knee RT 4V * Performed Date 10/20/2024 05/26/2024 11:56 AM 02:52 PM Order Date 10/20/2024 05/26/2024 * Lab:Gram stain * Collection Date 10/20/2024 10/10/2024 10/10/2024 Collection Time 02:58 PM 10:51 AM 10:40 AM Order Date 10/20/2024 10/10/2024 10/10/2024 Gram stain 1+ Gram-positive eder ci No organisms seen No organisms seen ???Lab:Anaerobic Culture (Order Date - 10/10/2024) (Collection Date & Time - 10/10/2024 10:51 AM)?ValueReference Range?Anaerobic CultureNo anaerobes isolated.- * Lab:Routine Culture * Collection Date 10/20/2024 10/10/2024 [...] NR NR Ciprofloxacin 0.12 S NR NR * Lab:Complete Blood Count no Diff * [...] Clr Calc Pharmacy 84.8 69.3 99.6 * Lab:Blood Culture (Second) * Collection Date 10/20/2024 05/26/2024 01/18/2024 Collection Time 02:56 PM 05:08 PM 03:27 PM Order Date 10/20/2024 05/26/2024 01/18/2024 Blood Culture (Second) No growth after 5 days. No growth after 5 days. No growth after 5 days. * Lab:Comprehensive Met. Panel * Collection Date [...] Range: < or = 0.50 mg/dL) * Lab:Complete Blood Count Aut o Diff [...] (Ref Range: 0.0-0.012 X10*3/uL) * Lab:Blood Culture (First) * Collection Date 10/20/2024 05/26/2024 01/18/2024 Collection Time 02:56 PM 03:18 PM 03:28 PM Order Date 10/20/2024 05/26/2024 01/18/2024 Blood Culture (First) No growth after 5 days. No growth after 5 days. No growth after 5 days. * Lab:Erythrocyte Sedimentatio n Rate * Collection Date 10/20/2024 05/26/2024 01/18/2024 Collection Time 12:47 PM 05:08 PM 03:28 PM Order Date 10/20/2024 05/26/2024 01/18/2024 Erythrocyte Sedimentation Rate 5 (Ref Range: 0-15 MM/HR) 10 (Ref Range: 0-15 MM/HR) 92 H (Ref Range: 0-15 MM/HR) * Lab:Vancomycin Random * Collection Date 10/23/2024 [...] reflex Free T41.34 0.32-4.0 - uIU/mL * Lab:Hold Lav - Possible Matt tology [...] in no acute distress, calm and relaxed: overweight: man. HEAD: a traumatic, normocephalic. EYES: e [...] bruits. LUNGS: : diminished breath sounds throughout: rhonchi on the LEFT. BREASTS: no masses palpable bilaterally. ABDOMEN: b owel sounds normal, no ascites, no organomegaly, no mass: overweight. RECTAL EXAM: n ot examined. MUSCULOSKELETAL: R ight below the knee amputation. 2 inch area on the stump incision line training copious white without bleeding. PERIPHERAL PULSES: n ormal. NEUROLOGIC: a lert and oriented, cranial nerves 2-12 grossly intact, deep tendon reflexes 2+ symmetrical, motor strength normal upper and lower extremities, sensory exam intact. PSYCH: a lert, oriented. Assessment: * Assessment: 1. C hronic obstructive pulmonary disease, unspecified COPD type - J44.9 (Primary) ?Notes :He has resumed smoking 5 cigarettes per day. He was counseled about this and made aware of the smoking cessation programs in the area. 2 . C hronic osteomyelitis of right tibia with draining sinus - M86.461 ? N otes :He was seen by vascular surgery just before today's visit. Vascular has referred him to infectious disease for an opinion. The patient I today discussed the possibility of an khefj-jcu-gleo amputation and what it would be like walking. 3 . B arrett's esophagus determined by endoscopy - K22.70 N otes :He is due for an endoscopy and was referred back to his director medical affairs, Dr. Quinton Campos. 4 . B enign prostatic hyperplasia with lower urinary tract symptoms - N40.1? Notes :The tamsulosin was continued today. He will notify me if his symptoms worsen. He has had no retention. He has symptoms of prostatism. 5 . S plenic vein thrombosis - I82.890 N otes :There have been no further signs of thromboembolism. 6 . H iatal hernia - K44.9 N otes :The symptoms of his esophageal reflux and hiatal hernia well controlled with current medications. No change in his regimen as needed. 7 . T obacco dependence - F17.200 N otes :I have counseled him about smoking cessation and offered to refer him to smoking cessation programs in the community. He said he would consider this and try to cut down. 8 . O verweight - E66.3 N otes :His body mass index is 29. We discussed diet and nutrition. I recommended aggressive weight loss and sodium restriction. Plan: * Treatment: 2. O thers Continue [...] mouth once daily. * Procedure Codes: 9 4760 MEASURE BLOOD OXYGEN LEVEL * Preventive Medicine: Counseling: C are goal follow-up plan: Counseling for abnormal BMI given Y es Above Normal BMI Follow-up D ietary management education, guidance, and counseling COPD Care Plan: P atient Lifestyle Goals R elieve symptoms and improve quality of life, Reduce number of ED and hospitalizations, Be able to be more active with friends and family. T reatment Goals E xercise to help whole body, including lungs, Quit Smoking. B arriers n o barriers. S elf-Managment Goals M rashida a plan for quitting smoking. * Follow Up: 4 Weeks (Reason: OV) * Images: * Sign off status: Completed true * Provider: Angeles Callahan MD Date: Generated for Tristen bustamante/Jai/eTcindysmitting on: 03/08/2024 02:37 PM EST History and Physical Notes * HPI (History of Present Illness) Category Sub-Category Detail Notes Depression Screening PHQ-9 Little inte rest or pleasure in doing things: Not at all Feeling down, depressed, or hopeless: No t at all Trouble falling or staying a sleep, or sleeping too much: More than half the days Feeling tired or having little energy: S everal days Poor appetite or overeating: Not at all Feeling bad about yourself o r that you are a failure, or have let yourself or your family down: Not at all Trouble concentrating on thi ngs, such as reading the newspaper or watching television: Not at all Moving or speaking so slowly that other people could have noticed; or the opposite, being so fidgety or restless that you have been moving around a lot more than usual: Not at all Thoughts that you would be b marv off or of hurting yourself in some way: Not at all Total Score: 3 Interpretation: Minimal Depression Fall Risk Screening Fall History Have you had any falls with injury in the past year?: No Have you had two or more falls in the year?: No Fall Risk Assessment:: No falls in the year COVID-19 Screening Questions Have you had any new onset fever, chills, cough, congestion, sore throat, shortness of breath, muscle aches?: No SDOH Questions SDOH Questions In the past year have you or any family members you live with been unable to get any of the following when it was really needed? Check all that apply:: Decline to answer Examination Category Sub-Category Detail Notes General Examination GENERAL APPEARANCE: pleasant , well nourished, well developed, in no acute distress, calm and relaxed: overweight: man HEAD: atraumatic, normocep halic EYES: eomi, perrla, anicte severiano, conjugate EARS: normal NOSE: septum intact NECK/THYROID: no jugular venous di stention, no carotid bruit, thyroid normal HEART: no clicks, gallops, murmurs, or rubs, regular rhythm, S1, S2 normal, no s3, or vascular bruits LUNGS: : diminished breath sounds throughout: rhonchi on the LEFT ABDOMEN: bowel sounds normal, no ascites, no organomegaly, no mass: overweight NEUROLOGIC: alert and oriented, cranial nerves 2-12 grossly intact, deep tendon reflexes 2+ symmetrical, motor strength normal upper and lower extremities, sensory exam intact SKIN: no suspicious lesion s, anicteric PERIPHERAL PULSES: normal BREASTS: no masses palpable b ilaterally MUSCULOSKELETAL: Right below the knee amputation. 2 inch area on the stump incision line training copious white without bleeding LYMPH NODES: no enlarged lymph no pinky,spleen normal RECTAL EXAM: not examined PSYCH: alert, oriented ORAL CAVITY: normal, unremarkable
--- OUTSIDE RECORDS SUMMARY | 2024-12-25 10:58 | XMS_ITS ---
Author Organization Quinton Callahan III, MD Address [address] [place] [address] [place] [address] Care Team Providers Care Licensed Prosthetist/Orthotist Name Role Phone Dr. Quinton Callahan III Primary Care Provider REASON FOR VISIT Message Social History Sex Assigned At : Social History Observation Description Sex Assigned At Male Encounters Encounter Location Date Provider Diagnosis Quinton Callahan III, MD [address] [place] [address] [place] [address] 12/25/2024 Quinton Callahan Plan Of Treatment Next Appt Details Provider Name:Quinton Callahan , 12/08/2025 02:30:00 PM, [address] [place] [address] [address], [place], [address], Progress Notes * HUANG JuanrheahDOB:1960 (64 yo M)Acc No.[id number]:12/25/2024 Patient: Chuy MONTES DE OCA Zan :1960 A ge:64 Y S ex:Male Address:[address] [place] [address], [address], [place], [address] * true * Date: Generated for Tristen bustamante/Jai/eTransmitting on: 03/08/2024 02:37 PM EST
--- OUTSIDE RECORDS SUMMARY | 2024-12-30 11:07 | XMS_ITS ---
Author Organization Quinton Callahan III, MD Address [address] [place] [address] [place] [address] Care Team Providers Care Security Intern Name Role Phone Dr. Quinton Callahan III Primary Care Provider REASON FOR VISIT Rx Wheelchair Social History Sex Assigned At : Social History Observation Description Sex Assigned At Male Encounters Encounter Location Date Provider Diagnosis Quinton Callahan III, MD [address] [place] [address] [place] [address] 12/30/2024 Quinton Callahan Plan Of Treatment Next Appt Details Provider Name:Quinton Callahan , 12/08/2025 02:30:00 PM, [address] [place] [address] [address], [place], [address], Progress Notes * MARY JuanrheahDOB:1960 (64 yo M)Acc No.[id number]:12/30/2024 Patient: Zan TONG :1960 A ge:64 Y S ex:Male Address:[address] [place] [address], [address], [place], [address] * true * Date: Generated for Montanai robby/Jai/eTransmitting on: 03/08/2024 02:37 PM EST
--- OUTSIDE RECORDS SUMMARY | 2025-01-01 06:00 | XMS_ITS ---
Author Organization Quinton Callahan III, MD Address [address] [place] [address] [place] [address] Care Team Providers Care Education Assistant Name Role Phone Dr. Quinton Callahan III Primary Care Provider [phone] REASON FOR VISIT Refused Wound Care Visit Social History Sex Assigned At : Social History Observation Description Sex Assigned At Male Encounters Encounter Location Date Provider Diagnosis Quinton Callahan III, MD [address] [place] [address] [address] [facility] [place] [address] 01/01/2025 Quinton Callahan Plan Of Treatment Next Appt Details Provider Name:Quinton Callahan , 12/08/2025 02:30:00 PM, [address] [place] [address] [address], [place], [address], Progress Notes * Ana ENCINAShDOB:1960 (64 yo M)Acc No.[id number]:01/01/2025 Patient: Zan TONG :1960 A ge:64 Y S ex:Male Address:[address] [place] [address], [address], [place], [address] * true * Date: Generated for Montanai robby/Butchg/eTransmitting on: 03/08/2024 02:39 PM EST
--- OUTSIDE RECORDS SUMMARY | 2025-01-01 08:55 | XMS_ITS ---
Author Organization Quinton Callahan III, MD Address [address] [place] [address] [place] [address] Care Team Providers Care Opal Miner Name Role Phone Dr. Quinton Callahan III Primary Care Provider REASON FOR VISIT Message Social History Sex Assigned At : Social History Observation Description Sex Assigned At Male Encounters Encounter Location Date Provider Diagnosis Quinton Callahan III, MD [address] [place] [address] [place] [address] 01/01/2025 Quinton Callahan Plan Of Treatment Next Appt Details Provider Name:Quinton Callahan , 12/08/2025 02:30:00 PM, [address] [place] [address] [address], [place], [address], Progress Notes * MARY JuanrheahDOB:1960 (64 yo M)Acc No.[id number]:01/01/2025 Patient: Zan TONG :1960 A ge:64 Y S ex:Male Address:[address] [place] [address], [address], [place], [address] * * Date:
--- OUTSIDE RECORDS SUMMARY | 2025-01-06 09:30 | XMS_ITS ---
Author Organization Quinton Callahan III, MD Address [address] [place] [address] Care Team Providers Care Steno Pool Supervisor Name Role Phone Dr. Quinton Callahan III [...] fou r times a day 10/31/2023 Active Doxycycline Hyclate 100 MG TAKE 1 CAPSUL E BY MOUTH TWICE DAILY Oral Active Albuterol Sulfate HFA 108 (90 Base) MCG/ACT INHALE 2 PUFFS BY MOUTH EVERY 4 TO 6 HOURS NEEDED FOR SHORTNESS OF BREATH OR WHEEZING Inhalation Active ASA 1 tab Oral Active DuoNeb Active Social History Tobacco Use: Social History [...] user Modera te cigarette smoker (10-19 cigs/day) Vital Signs Temperature 98.6 degrees Fahrenheit 01/07/20 25 Blood pressure systolic 141 mm Hg 01/07/20 25 Blood pressure diastolic 85 mm Hg 025 Heart Rate 73 /min 01/06/2025 Height 73 in 01/06/2025 Weight 197 lbs 01/06/2025 BMI 25.99 kg/m2 01/06/2025 Encounters Encounter Location Date Provider Diagnosis Quinton Callahan III, MD [address] [place] [address] [address] [facility] [place] [address] 01/06/2025 Quinton Callahan Chronic osteomyeliti s of right tibia with draining sinus M86.461 Assessments Encounter Date Diagnosis (ICD Code) Assessment Notes Treat ment Notes Treatment Clinical Notes 01/06/2025 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 Vascular has referred him to infectious disease for an opinion. The patient I today discussed the possibility of an ljbbt-mbi-wyyn amputation and what it would be like walking. Plan Of Treatment Medication Medication Name Sig Start Date Stop Date Notes Atorvastatin Calcium 10 MG Take 1 tablet by mouth once daily Pantoprazole Sodium 40 MG Take 2 tablets by mouth once daily Tamsulosin HCl 0.4 MG 2 capsule Orally Once a day Gabapentin 400 MG 1 capsule Orally fou r times a day 10/31/2023 Doxycycline Hyclate 100 MG TAKE 1 CAPSUL E BY MOUTH TWICE DAILY Oral Albuterol Sulfate HFA 108 (9 0 Base) MCG/ACT INHALE 2 PUFFS BY MOUTH EVERY 4 TO 6 HOURS NEEDED FOR SHORTNESS OF BREATH OR WHEEZING Inhalation ASA 1 tab Oral DuoNeb Next Appt Details Provider Name:Quinton Callahan , 12/08/2025 02:30:00 PM, [address] [place] [address] [address], [place], [address], Progress Notes * ENCINASAna HEREDIAhDOB:1960 (64 yo M)Acc No.[id number]:01/06/2025 Progress Notes Patient: Zan TONG Provider: Angeles Callahan MD :1960 A ge:64 Y S ex:Male Date:01/06/2025 Address:[address] [place] [address], [facility] [phone] Subjective: * Chief Complaints: * 1 . Follow up. * HPI: C OVID-19 Screening: Questions H ave you [...] dental work 1985, upper endoscopy and colonoscopy, [facility], Dr. Quinton Campos 2009, upper endoscopy, [facility], Dr. Quinton Campos, Palmer's esophagus 2013, arteriogram right lower extremity 05/2019, Right ouczg-qcc-swap amputation 02-04-2024. * Hospitalization/Major Diagno stic Procedure: D enies Past Hospitalization. * Family History: F ather: [...] healthy grandchildren. One of his siblings has Wdwecif-Ubboi-Yewqe disease. 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 He was born in [place], [place]. He came to [place] in 1984. He is with 6 children. He has 11 grandchildren. He is a of [employer]. He trained at [employer] and served in [employer]. * Medications: T brock Roth , Taking ASA 1 tab Oral , Taking Albuterol Sulfate HFA 108 (90 [...] tablets by mouth once daily , Taking Atorvastatin Calcium 10 MG Tablet Take 1 tablet by mouth once daily , Taking Doxycycline Hyclate 100 MG Capsule TAKE 1 CAPSULE BY MOUTH TWICE DAILY Oral , Discontinued Gabapentin 300 MG Capsule Oral , Discontinued Atorvastatin Calcium 10 MG Tablet Oral , Discontinued Breo Ellipta 200-25 MCG/ACT Aerosol Powder Breath Activated INHALE 1 PUFF BY MOUTH ONCE DAILY Inhalation , Discontinued Metoprolol Succinate ER 25 MG Tablet Extended Release 24 Hour 1 tablet Orally Once a day , Medication List reviewed and reconciled with the patient * Allergies: N o Known Drug Allergy, No Known Food Allergy. Objective: * Vitals: H t: 73, Wt:197, BMI:25.99, BP:141/85, HR:73, Temp:98.6, Ht-cm: 185.42, Wt-k.36. * P ast Orders: I maging:US renal BI (Order Date - 12/05/2024) (Performed Date - 12/05/2024) * Examination: G eneral Examination: GENERAL APPEARANCE: [...] sinus - M86.461 N otes :He was seen by vascular surgery just before today's visit. Vascular has referred him to infectious disease for an opinion. The patient I today discussed the possibility of an dxcwf-rjf-teou amputation and what it would be like walking. Plan: * Treatment: * Images: * The named appointment provid er may or may not be the originator of this progress note, and it is not deemed complete until electronically signed by the appointment provider. Sign off status: Pending * Provider: Angeles Callahan MD Date: 03/08/2024 Generated for Tristen bustamante/Jai/Lvransmitting on: 03/08/2024 02:39 [...]
[2025-01-06 12:56] VITALS: BMI 25.5
--- NOTE | 2025-01-06 12:56 | A.OFFVIS_ITS ---
Vital Signs 01/06/25 12:56 Height 6 ft Weight 188 lb BMI 25.5 Intake Visit Reasons: 3 week stump check Intake Note: 3 week follow up Right stump check, has some drainage. VNA twice per week. 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 Appears to be doing relatively well. He continues to be on doxycycline which does occasionally cause him GI discomfort. He is on probiotics and appears to be doing relatively well with that. He now presents for routine follow-up. [facility] Medical History Peripheral arterial disease Below-knee amputation of right lower extremity Osteomyelitis Krish angina Left bundle branch block Bakers cyst Nicotine dependence, cigarettes, uncomplicated Arthritis BPH (benign prostatic hyperplasia) Elevated cholesterol Complex regional pain syndrome i of right lower limb S/P angiogram of extremity (07/18/23) Atrial fibrillation History of Palmer's esophagus Splenic vein thrombosis History of femoral angiogram GERD (gastroesophageal reflux disease) COPD (chronic obstructive pulmonary disease) Surgical History Hx of BKA History of tonsillectomy Hx of oral surgery Hx of tracheostomy History of esophagogastroduodenoscopy (EGD) H/O colonoscopy Social History Household Members: Family and Children Household Members Other:: Son, son girlfriend, grandbaby Housing: Apartment Housing Other:: 3 stairs to climb Are you a primary patient care director to a significant other at home: No Do you presently have visiting nurse or other home services: Yes Comment: Dr Knott made aware of absent pulse and sensation in right foot Patient Tobacco Use Status: Current everyday Tobacco user Tobacco use type: Cigarette Cigarette Packs Per Day: 1 Cigarettes Per Day: 20.0 Years Smoked: 50 e-Cigarette/Vaping Use: Never Used Second Hand Smoke Exposure: No Substance Use Type: Marijuana Advance Directives Date on File: 01/17/24 service: Yes Review of Systems Const All systems reviewed & are unremarkable except as noted in HPI and below Reports no additional complaints ENT Reports Normal hearing present Card Denies chest pain, Denies chest pain at rest, Denies chest pain with activity and Denies pedal edema Resp Denies cough GI Denies abdominal pain Musc Denies abnormal gait, Denies muscle cramps and Denies radiating pain into limb Skin/Breast Denies skin ulcer and Denies wounds Neuro Reports Normal hearing present and Denies abnormal gait Psych Reports no additional complaints Physical Exam Vital Signs: BMI result Body Mass Index 25.5 Const General: cooperative, healthy appearing and comfortable Orientation/consciousness: oriented to person, oriented to place and oriented to time HEENT Head: Yes normal to inspection Neck Neck: Yes normal visual inspection Carotids: no bruits Chest Chest palpation & inspection: normal inspection of the chest Resp Effort & Inspection: normal respiratory effort and able to speak in complete sentences Auscultation: clear to auscultation bilaterally, no crackles, no rales, no rhonchi and no wheezes Cardio Rate: regular rate Rhythm: regular rhythm Heart sounds: S1 normal heart sound present and S2 normal heart sound present Bruits: no carotid bruits Peripheral pulses: Peripheral pulses 2+ throughout GI Inspection: Yes normal to inspection Skin Other: Right stump has an opening on the dorsum measuring 3 x 1 x 1 cm. Wounds: no wounds Hair: normal Neuro General: oriented to person, oriented to place and oriented to time Cranial nerves: Yes CN's II-XII intact bilaterally and Yes Normal hearing present Cognition (Neuro): normal cognition Motor exam (neuro): 5/5 motor strength present throughout Extrem Other: venous exam: No significant superficial varicosities or spider telangiectasias, minimal edema General: No clubbing, No cyanosis and No edema Psych Appearance: grossly normal Mental Status: mental status grossly normal Speech and movement: Normal speech and movement present Assessment & Plan Assessment & Plan (1) Peripheral arterial disease: Code(s): I73.9 - Peripheral vascular disease, unspecified Category: Medical Plan: In short right EMILIE appears to be doing relatively well. The opening continues to close nicely. He denies any pain. The current time would continue with current dressings and he will follow up with us in approximately 3 weeks' time. Should there be any interval changes he was requested to contact us. Should we not see any improvement within the next few weeks we will consider skin substitute. Thank you for allowing us to assist in his care. Coding Level of Care Code Est Pt Level 4 (29627) Diagnoses Peripheral arterial disease I73.9
--- OUTSIDE RECORDS SUMMARY | 2025-01-06 14:37 | XMS_ITS | Encounter Summary ---
Author Organization [facility] Address [address] [place] [address] [place] [id number] Phone Care Team Providers Care Building Maintenance Worker Name Role Phone Quinton Callahan MD Primary Care Provider [phone]- [phone] Encounter Details Date Type Department Care Team (Late st Contact Info) Description 12/08/2023 Procedure Pass [facility] EKG [address] [place] [address] Social History Tobacco Use Types Packs/Day Years [...] filedocumented in this encounter Care Teams Building Maintenance Worker Relationship Specialty Start Date End Date Quinton Callahan MD [address] [place] [address] [place] [address] PCP - General Medical Oncology 11/23/23 documented as of this encounter Additional Source Comments The information contained in this document represents components of the legal health record. It is not the complete legal health record.[facility]
--- OUTSIDE RECORDS SUMMARY | 2025-01-06 14:38 | XMS_ITS | Encounter Summary ---
Author Organization [facility] Address [address] [place] [address] [place] [phone] Phone Care Team Providers Care House Mover Name Role Phone Quinton Callahan MD Primary Care Provider [phone]- [phone] Encounter Details Date Type Department Care Team (Late st Contact Info) Description 12/02/2023 Procedure Pass [facility] Periop [address] [place] [address] Social History Tobacco Use Types Packs/Day Years [...] on filedocumented in this encounter Care Teams House Mover Relationship Specialty Start Date End Date Quinton Callahan MD [address] [place] [address] [place] [address] PCP - General Medical Oncology 11/23/23 documented as of this encounter Additional Source Comments The information contained in this document represents components of the legal health record. It is not the complete legal health record.[facility]
--- OUTSIDE RECORDS SUMMARY | 2025-01-06 14:38 | XMS_ITS | Patient Health Record ---
Author Organization Quinton Callahan III, MD Address [address] [place] [address] Care Team Providers Care Flight Surgeon Name Role Phone Dr. Quinton Callahan III Primary Care Provider [phone] Allergies Allergen (clinical drug ingredient) Drug/Non Drug Allergy documented on EMR Reaction Allergy Type Onset Date Status No Known Drug Allergy Unknown Drug Allergy Active No Known Food Allergy Unknown Drug Allergy Active Results Component Value Reference Range Notes Complete Blood Count Auto Di ff Reviewed date:01/07/2024 01:28:15 PM Interpretation: Performing Lab:[facility], [address] [place] [phone] Notes/Report: White Blood Count 8.2 4.8-10.8 X10*3/uL [...] Drip Reviewed date:01/08/2024 08:33:39 AM Interpretation: Performing Lab:[facility], [address] [place] [address] Notes/Report: PTT Heparin Drip 33.9 53-77.9 SEC For information regarding the monitoring of heparin therapy, please refer to Pharmacy. Fibrinogen Reviewed date:01/08/2024 08:33:39 AM Interpretation: Performing Lab:[facility], [address] [place] [phone] Notes/Report: Fibrinogen 465 259-690 MG/DL Blood Urea Nitrogen Reviewed date:01/07/2024 01:28:15 PM Interpretation: Performing Lab:[facility], [address] [place] [phone] Notes/Report: Blood Urea Nitrogen 16 9-16 mg/dL Creatinine Reviewed date:01/07/2024 01:28:15 PM Interpretation: Performing Lab:[facility], [address] [place] [address] Notes/Report: Creatinine 0.81 0.5-1.4 mg/dL Creatinine Clr Calc Pharmacy 99.7 eGFR (calculated from the MDRD study equation) and eCrCl (calculated from the Cockcroft-Gault equation) are based on different parameters and may not yield comparable results. If eCrCl result is absurd, please check patient's height/weight. Estimated Glomerular Filt Rate > 60 NOTE: For -Banglades[place] individuals, multiply the result by 1.210. Chronic Kidney Disease: Estimated GFR < 60 mL/min/1.73m2 Severe Kidney Disease: Estimated GFR < 15 mL/min/1.73m2 ACT LR Reviewed date:01/16/2024 08:51:12 AM Interpretation: Performing Lab:[address] [address] Notes/Report: out of range low [id number] HO.MARUSA 0906 HO.MULVEC Fibrinogen Reviewed date:01/08/2024 08:33:39 AM Interpretation: Performing Lab:[facility], [address] [place] [address] Notes/Report: Fibrinogen 445 259-690 MG/DL Complete Blood Count no Diff Reviewed date:01/10/2024 09:47:57 AM Interpretation: Performing Lab:[address] [phone] Notes/Report: White Blood Count 28.7 4.8-10.8 X10*3/uL [...] ff Reviewed date:01/08/2024 08:33:39 AM Interpretation: Performing Lab:[address] [address] Notes/Report: White Blood Count 10.1 4.8-10.8 X10*3/uL [...] Reviewed date:01/08/2024 02:05:08 PM Interpretation: Performing Lab:[facility], [address] [place] [phone] Notes/Report: Hold Lav - Possible Hematology SEE NOTE Specimen will be held untested for 8 hours. Call Hematology if testing is desired. PTT Heparin Drip Reviewed date:01/08/2024 08:33:39 AM Interpretation: Performing Lab:[facility], [address] [place] [phone] Notes/Report: PTT Heparin Drip 40.9 53-77.9 SEC For information regarding the monitoring of heparin therapy, please refer to Pharmacy. Fibrinogen Reviewed date:01/08/2024 08:33:39 AM Interpretation: Performing Lab:[facility], [address] [place] [phone] Notes/Report: Fibrinogen 432 259-690 MG/DL Basic Metabolic Panel Reviewed date:01/08/2024 08:33:39 AM Interpretation: Performing Lab:[facility], [address] [place] [address] Notes/Report: Sodium 138 135-145 mmol/L Potassium 3.8 [...] Reviewed date:01/08/2024 08:33:39 AM Interpretation: Performing Lab:[facility], [address] [place] [address] Notes/Report: Phosphorus 2.9 2.7-4.5 mg/dL Magnesium Reviewed date:01/08/2024 08:33:39 AM Interpretation: Performing Lab:[facility], [address] [place] [address] Notes/Report: Magnesium 1.8 1.6-2.6 mg/dL Albumin Level Reviewed date:01/08/2024 08:33:39 AM Interpretation: Performing Lab:[facility], [address] [place] [phone] Notes/Report: Albumin Level 3.2 3.5-5.0 g/dL ACT LR Reviewed date:01/11/2024 01:49:27 PM Interpretation: Performing Lab:[facility], [address] [place] [phone] Notes/Report: 109 [id number] AGUILA 0846 EZRA ACT 109 79-173 Celite s Results are converted to a reference Celite ACT value in seconds. A reference interval is unavailable for ACT. Kathy Flores Reviewed date:01/08/2024 02:05:08 PM Interpretation: Performing Lab:[facility], [address] [place] [phone] Notes/Report: Kathy Flores See Note Specimen held untested for 24 hours; Call to request Chemistry testing. SLIDE REVIEW Reviewed date:01/08/2024 02:05:08 PM Interpretation: Performing Lab:[facility], [address] [place] [phone] Notes/Report: SLIDE REVIEW VERIFIED Type and Screen Reviewed date:01/11/2024 01:49:26 PM Interpretation: Performing Lab:[facility], [address] [place] [phone] Notes/Report: Results at Issue Units as of [...] JONAS on 01/10/24 at 1916 by BORIS. 01/10/24 193 HCT PENDING RECEIPT 42.0-52.0 % 01/10/24 1749 [...] Date Time Test Result Flag Normal Range 01/10/249 PT* 12.1 10.9-12.4 SEC Results at Issue [...] SEC Results at Issue Units as of 01/11/241 ... Test View Group: Most Recent HGB HCT Results LABORATORY Date Time Test Result Flag Normal Range 01/11/24 0500 HGB PENDING RECEIPT 14.0-18.0 g/dl 01/11/24 0110 HGB 6.7 #*L 14.0-18.0 g/dl Results of HEMOGLOBIN called to and read back by SARTHAK on 01/11/24 at 0122 by JEWELS. 01/11/24 0500 HCT PENDING RECEIPT 42.0-52.0 % 01/11/24 0110 HCT 18.7 #*L 42.0-52.0 % Results of HEMATOCRIT called to and read back by SARTHAK on 01/11/24 at 0123 by JEWELS. MTP MTP None available No Blood Type OP Antibody Screen NEGATIVE Red Blood Cells Reviewed date:01/11/2024 01:49:26 PM Interpretation: Performing Lab:[facility], [address] [place] [phone] Notes/Report: Red Blood Cells [id number] ON RC Red Blood Cells TRANSFUSED 01/09/24 0929 Red Blood Cells [id number] OP RC Red Blood Cells TRANSFUSED 01/09/24 1520 Red Blood Cells [id number] OP RC Red Blood Cells TRANSFUSED 01/10/24 0154 Red Blood Cells [id number] OP RC Red Blood Cells TRANSFUSED 01/10/24 1938 Red Blood Cells [id number] OP RC Red Blood Cells TRANSFUSED 01/10/242025 Red Blood Cells [id number] OP RC Red Blood Cells TRANSFUSED 01/10/24 2156 Red Blood Cells [id number] OP RC Red Blood Cells TRANSFUSED 01/10/242025 Red Blood Cells [id number] OP RC Red Blood Cells TRANSFUSED 01/11/24 0159 Red Blood Cells [id number] OP RC Red Blood Cells TRANSFUSED 01/11/24 0159 Arterial Blood Gases - POC Reviewed date:01/08/2024 02:05:08 PM Interpretation: Performing Lab:[facility], [address] [place] [phone] Notes/Report: ABG pH 7.42 7.35-7.45 METER #: [id number] additional_comment: Cbgreavet ctrbpavlova ABG pCO2 34 32-45 mmHg METER #: [id number] additional_comment: Cbgreavet ctrbpavlova ABG pO2 95 83-108 mmHg METER #: [id number] additional_comment: Cbgreavet ctrbpavlova ABG Base Excess -1.2 METER #: [id number] additional_comment: Cbgreavet ctrbpavlova ABG HCO3 22 22-26 mmol/L METER #: [id number] additional_comment: Cbgreavet ctrbpavlova ABG O2 % Saturation 99.0 METER #: [id number] additional_comment: Cbgreavet ctrbpavlova Pheresis Platelets Reviewed date:01/11/2024 01:49:27 PM Interpretation: Performing Lab:[facility], [address] [place] [phone] Notes/Report: Pheresis Platelets [id number] OP PHPLT Pheresis Platelets TRANSFUSED 01/11/24 0133 Hold Green Gel Reviewed date:01/08/2024 02:05:08 PM Interpretation: Performing Lab:[facility], [address] [place] [address] Notes/Report: Hold Green Gel See Note Specimen held untested for 24 hours; Call to request Chemistry testing. Fresh Frozen Plasma Reviewed date:01/11/2024 01:49:27 PM Interpretation: Performing Lab:[facility], [address] [place] [address] Notes/Report: Fresh Frozen Plasma [id number] AP FFP Fresh Frozen Plasma TRANSFUSED 01/11/24 0159 Fresh Frozen Plasma [id number] OP FFP Fresh Frozen Plasma TRANSFUSED 01/10/242155 CT abdomen pelvis w con Reviewed date:01/08/2024 02:05:08 PM Interpretation: Performing Lab: Notes/Report: [address] [place] [address] CT Scan Report Signed Patient: Zan Encinas MR#: [id number] : 1960 Acct:[id number] Age/Sex: 63 / M ADM Date: 01/07/24 Loc: .[facility] 255-[address]: Bimal Knott MD Ordering Physician: Sawyer Case MD Date of Service: 01/08/24 Procedure(s): CT abdomen pelvis w IV con Accession Number(s): [id number] cc: Quinton Callahan MD; Sawyer Case MD [...] right superficial femoral vein. There are likely Townsend-Ariel bypass femoral, bilaterally.. OSSEOUS STRUCTURES: Multilevel thoracolumbar [...] by: Theo Stern MD 01/08/2024 12:21 PM [facility] Dictated By: Theo Lagunas MD Signed By: <Electronically signed by Theo Steven MD in OV> 01/08/24 1221 DD/ 1105 TD/TT: 01/08/24 1125 Metal Control Worker: [address] [address] [address] Scan Report Signed Patient: Zan Encinas MR#: [id number] : 1960 Acct:[id number] Age/Sex: 63 / M ADM Date: 01/07/24 Loc: .ICU 255-[address]: Bimal Knott MD Ordering Physician: Sawyer Case MD Date of Service: 01/08/24 Procedure(s): CT abd omen pelvis w IV con Accession Number(s): [id number] cc: Quinton Callahan MD; Sawyer Case MD [...] right superficial femoral vein. There are likely Townsend-Ariel bypass femoral, bilaterally.. OSSEOUS STRUCTURES: Multilevel thoracolumbar [...] by: Theo Stern MD 01/08/2024 12:21 PM [facility] Dictated By: Theo Sawyer MD Signed By: <Electronically signed by Theo Steven MD in OV> 01/08/24 1221 DD/ 1105 TD/TT: 01/08/24 1125 Metal Control Worker: Fibrinogen Reviewed date:01/08/2024 08:33:39 AM Interpretation: Performing Lab:[address] [address] Notes/Report: Fibrinogen 441 259-690 MG/DL Complete Blood Count Auto Di ff Reviewed date:01/08/2024 02:05:08 PM Interpretation: Performing Lab:[address] [address] Notes/Report: White Blood Count 20.0 4.8-10.8 X10*3/uL [...] Reviewed date:01/08/2024 02:05:08 PM Interpretation: Performing Lab:[facility], [address] [place] [phone] Notes/Report: PTT Heparin Drip > 200.0 53-77.9 SEC Results of PTT-HD called to and read back by MARIELA on 01/08/24 at 1155 by FROY. For information regarding the monitoring of heparin therapy, please refer to Pharmacy. Basic Metabolic Panel Reviewed date:01/10/2024 09:47:57 AM Interpretation: Performing Lab:[facility], [address] [place] [address] Notes/Report: Sodium 134 135-145 mmol/L Potassium 4.9 [...] Phosphorus Reviewed date:01/10/2024 09:47:57 AM Interpretation: Performing Lab:[address] [address] Notes/Report: Phosphorus 4.1 2.7-4.5 mg/dL Magnesium Reviewed date:01/10/2024 09:47:57 AM Interpretation: Performing Lab:[address] [address] Notes/Report: Magnesium 1.9 1.6-2.6 mg/dL Complete Blood Count Auto Di ff Reviewed date:01/10/2024 09:47:57 AM Interpretation: Performing Lab:[address] [address] Notes/Report: White Blood Count 21.8 4.8-10.8 X10*3/uL [...] Reviewed date:01/10/2024 09:47:57 AM Interpretation: Performing Lab:[facility], [address] [place] [address] Notes/Report: SLIDE REVIEW VERIFIED ACT LR Reviewed date:01/11/2024 01:49:27 PM Interpretation: Performing Lab:[facility], [address] [place] [address] Notes/Report: 203 [id number] HO.MARUSA 0855 mulvec ACT 203 79-173 Celite s Results are converted to a reference Celite ACT value in seconds. A reference interval is unavailable for ACT. Complete Blood Count Auto Di ff Reviewed date:01/10/2024 09:47:57 AM Interpretation: Performing Lab:[facility], [address] [place] [address] Notes/Report: White Blood Count 16.7 4.8-10.8 X10*3/uL [...] gy Reviewed date:01/10/2024 09:47:57 AM Interpretation: Performing Lab:[address] [address] Notes/Report: Hold Lav - Possible Hematology SEE NOTE Specimen will be held untested for 8 hours. Call Hematology if testing is desired. Prothrombin Time INR Reviewed date:01/10/2024 09:47:57 AM Interpretation: Performing Lab:[facility], [address] [place] [address] Notes/Report: Prothrombin Time 11.5 10.9-12.4 SEC INTERNATIONAL [...] Reviewed date:01/10/2024 09:47:57 AM Interpretation: Performing Lab:[facility], [address] [place] [address] Notes/Report: PTT Heparin Drip 28.1 53-77.9 SEC For information regarding the monitoring of heparin therapy, please refer to Pharmacy. Basic Metabolic Panel Reviewed date:01/10/2024 09:47:57 AM Interpretation: Performing Lab:[facility], [address] [place] [address] Notes/Report: Sodium 136 135-145 mmol/L Potassium 4.5 [...] Reviewed date:01/10/2024 09:47:57 AM Interpretation: Performing Lab:[facility], [address] [place] [address] Notes/Report: Phosphorus 4.0 2.7-4.5 mg/dL Magnesium Reviewed date:01/10/2024 09:47:57 AM Interpretation: Performing Lab:[address] [address] Notes/Report: Magnesium 1.9 1.6-2.6 mg/dL Albumin Level Reviewed date:01/10/2024 09:47:57 AM Interpretation: Performing Lab:[address] [address] Notes/Report: Albumin Level 3.2 3.5-5.0 g/dL SLIDE REVIEW Reviewed date:01/10/2024 09:47:57 AM Interpretation: Performing Lab:[facility], [address] [place] [phone] Notes/Report: SLIDE REVIEW VERIFIED Complete Blood Count Auto Di ff Reviewed date:01/10/2024 09:47:57 AM Interpretation: Performing Lab:[facility], [address] [place] [address] Notes/Report: White Blood Count 10.8 4.8-10.8 X10*3/uL [...] Reviewed date:01/10/2024 09:47:57 AM Interpretation: Performing Lab:[facility], [address] [place] [address] Notes/Report: PTT Heparin Drip 34.2 53-77.9 SEC For information regarding the monitoring of heparin therapy, please refer to Pharmacy. Complete Blood Count Auto Di ff Reviewed date:01/10/2024 09:47:57 AM Interpretation: Performing Lab:[facility], [address] [place] [address] Notes/Report: White Blood Count 8.4 4.8-10.8 X10*3/uL [...] Panel Reviewed date:01/10/2024 09:47:57 AM Interpretation: Performing Lab:[address] [address] Notes/Report: Sodium 135 135-145 mmol/L Potassium 4.5 [...] Phosphorus Reviewed date:01/10/2024 09:47:57 AM Interpretation: Performing Lab:[address] [address] Notes/Report: Phosphorus 3.0 2.7-4.5 mg/dL Magnesium Reviewed date:01/10/2024 09:47:57 AM Interpretation: Performing Lab:[address] [address] Notes/Report: Magnesium 2.2 1.6-2.6 mg/dL PTT Heparin Drip Reviewed date:01/10/2024 09:47:57 AM Interpretation: Performing Lab:[address] [address] Notes/Report: PTT Heparin Drip 55.2 53-77.9 SEC For information regarding the monitoring of heparin therapy, please refer to Pharmacy. Complete Blood Count Auto Di ff Reviewed date:01/10/2024 09:47:57 AM Interpretation: Performing Lab:[address] [place] [address] Notes/Report: White Blood Count 9.2 4.8-10.8 X10*3/uL [...] Reviewed date:01/11/2024 01:49:27 PM Interpretation: Performing Lab:[facility], [address] [place] [address] Notes/Report: Hemoglobin 3.3 14.0-18.0 g/dl Results of HGB called to and read back by JONAS on 01/10/24 at 1959 by BORIS. Hematocrit 9.9 42.0-52.0 % Results of HCT called to and read back by JONAS on 01/10/24 at 2001 by BORIS. Pathologist Review - CBC Reviewed date:01/11/2024 01:49:26 PM Interpretation: Performing Lab:[address] [address] Notes/Report: Pathologist Review - CBC SEE NOTE Normochromic normocytic anemia. - Javi Farias M.D. Pathology Prothrombin Time INR Reviewed date:01/10/2024 09:47:57 AM Interpretation: Performing Lab:[address] [address] Notes/Report: Prothrombin Time 12.1 10.9-12.4 SEC INTERNATIONAL [...] Drip Reviewed date:01/10/2024 09:47:57 AM Interpretation: Performing Lab:[address] [address] Notes/Report: PTT Heparin Drip 44.5 53-77.9 SEC For information regarding the monitoring of heparin therapy, please refer to Pharmacy. Comprehensive Met. Panel Reviewed date:01/11/2024 01:49:27 PM Interpretation: Performing Lab:[address] [address] Notes/Report: Sodium 135 135-145 mmol/L Potassium 4.9 [...] Panel Reviewed date:01/10/2024 09:47:57 AM Interpretation: Performing Lab:[address] [address] Notes/Report: Sodium 136 135-145 mmol/L Potassium 4.1 [...] Acid Reviewed date:01/11/2024 01:49:27 PM Interpretation: Performing Lab:[address] [address] Notes/Report: Lactic Acid 7.8 0.5-2.0 mmol/L Critical value for test(s): LACTA Results called to and read back by:VIKRAM Person calling: KUSF Date:01-10-2024 Time:2121 Phosphorus Reviewed date:01/10/2024 09:47:57 AM Interpretation: Performing Lab:[facility], [address] [place] [address] Notes/Report: Phosphorus 2.8 2.7-4.5 mg/dL Magnesium Reviewed date:01/10/2024 09:47:57 AM Interpretation: Performing Lab:[facility], [address] [place] [address] Notes/Report: Magnesium 2.0 1.6-2.6 mg/dL Albumin Level Reviewed date:01/10/2024 09:47:57 AM Interpretation: Performing Lab:[facility], [address] [place] [address] Notes/Report: Albumin Level 3.5 3.5-5.0 g/dL Lactic Acid-LAB USE ONLY Reviewed date:01/11/2024 01:49:27 PM Interpretation: Performing Lab:[facility], [address] [place] [address] Notes/Report: Lactic Acid-LAB USE ONLY 1.9 0.5-2.0 mmol/L Venous Blood Gases - POC Reviewed date:01/11/2024 01:49:27 PM Interpretation: Performing Lab:[facility], [address] [place] [address] Notes/Report: VBG pH 7.42 7.32-7.43 METER #: [id number] VBG pCO2 25 METER #: [id number] VBG pO2 76 METER #: [id number] 0250C VBG Base Excess -6.7 METER #: [id number] VBG HCO3 16 22-26 mmol/L METER #: [id number] 0250C VBG O2 % Saturation TNP Hold Green Gel Reviewed date:01/11/2024 01:49:27 PM Interpretation: Performing Lab:[facility], [address] [place] [address] Notes/Report: Hold Green Gel See Note Specimen held untested for 24 hours; Call to request Chemistry testing. CT abdomen pelvis w con Reviewed date:01/11/2024 01:49:27 PM Interpretation: Performing Lab: Notes/Report: [address] [address] [address] Scan Report Signed Patient: Zan Encinas MR#: [id number] : 1960 Acct:[id number] Age/Sex: 63 / M ADM Date: 01/07/24 Loc: .ICU 255-[address]: Bimal Knott MD Ordering Physician: Som Vela NP Date of Service: 01/10/24 Procedure(s): CT abdomen pelvis w IV con Accession Number(s): [id number] cc: Quinton Callahan MD; Som Vela NP [...] by: Jarret Ferrara MD 01/10/2024 10:00 PM [facility] Dictated By: Jarret Ferrara MD Signed By: <Electronically signed by Jarret Ferrara MD in OV> 01/10/242199 DD/ 21 TD/TT: 01/10/242021 Metal Control Worker: [address] [address] [address] Scan Report Signed Patient: Zan Encinas MR#: [id number] : 1960 Acct:[id number] Age/Sex: 63 / M ADM Date: 01/07/24 Loc: HO.ICU 255-[address]: Bimal Knott MD Ordering Physician: Som Vela NP Date of Service: 01/10/24 Procedure(s): CT abd omen pelvis w IV con Accession Number(s): [id number] cc: Quinton Callahan MD; Som Vela NP [...] by: Jarret Ferrara MD 01/10/2024 10:00 PM EST JCARLOS Dictated By: Jarret Ferrara MD Signed By: <Electronically signed by Jarret Ferrara MD in OV> 01/10/242199 DD/ 21 TD/TT: 01/10/242021 Metal Control Worker: PTT Heparin Drip Reviewed date:01/11/2024 01:49:27 PM Interpretation: Performing Lab:[facility], [address] [place] [address] Notes/Report: PTT Heparin Drip 80.2 53-77.9 SEC For information regarding the monitoring of heparin therapy, please refer to Pharmacy. PTT Heparin Drip Reviewed date:01/11/2024 01:49:27 PM Interpretation: Performing Lab:[facility], [address] [place] [address] Notes/Report: PTT Heparin Drip 66.0 53-77.9 SEC For information regarding the monitoring of heparin therapy, please refer to Pharmacy. Complete Blood Count Auto Di ff Reviewed date:01/11/2024 01:49:26 PM Interpretation: Performing Lab:[facility], [address] [place] [address] Notes/Report: White Blood Count 17.6 4.8-10.8 X10*3/uL [...] Reviewed date:01/12/2024 07:43:31 AM Interpretation: Performing Lab:[facility], [address] [place] [address] Notes/Report: White Blood Count 12.3 4.8-10.8 X10*3/uL [...] Reviewed date:01/11/2024 01:49:26 PM Interpretation: Performing Lab:[facility], [address] [place] [address] Notes/Report: White Blood Count 18.2 4.8-10.8 X10*3/uL [...] Panel Reviewed date:01/11/2024 01:49:26 PM Interpretation: Performing Lab:[facility], [address] [place] [address] Notes/Report: Sodium 135 135-145 mmol/L Potassium 4.6 [...] Phosphorus Reviewed date:01/11/2024 01:49:26 PM Interpretation: Performing Lab:[facility], [address] [place] [address] Notes/Report: Phosphorus 4.3 2.7-4.5 mg/dL Magnesium Reviewed date:01/11/2024 01:49:26 PM Interpretation: Performing Lab:[address] [address] Notes/Report: Magnesium 2.2 1.6-2.6 mg/dL Albumin Level Reviewed date:01/11/2024 01:49:26 PM Interpretation: Performing Lab:[address] [address] Notes/Report: Albumin Level 3.6 3.5-5.0 g/dL SLIDE REVIEW Reviewed date:01/11/2024 01:49:26 PM Interpretation: Performing Lab:[address] [address] Notes/Report: SLIDE REVIEW VERIFIED Venous Blood Gases - POC Reviewed date:01/11/2024 01:49:26 PM Interpretation: Performing Lab:[facility], [address] [place] [address] Notes/Report: VBG pH 7.49 7.32-7.43 METER #: [id number] additional_comment: Jeovany burgess ctrbb henriquezc VBG pCO2 35 METER #: [id number] additional_comment: Jeovany burgess ctrbb henriquezc VBG pO2 57 METER #: [id number] additional_comment: Jeovany burgess ctrbb henriquezc VBG Base Excess 4.0 METER #: [id number] additional_comment: Cb aditya ctrbb henriquezc VBG HCO3 27 22-26 mmol/L METER #: [id number] additional_comment: Jeovany burgess ctrbb henriquezc VBG O2 % Saturation 92.0 METER #: [id number] additional_comment: Jeovany burgess ctrbb henriquezc Venous Blood Gases - POC Reviewed date:01/11/2024 01:49:26 PM Interpretation: Performing Lab:[address] [address] Notes/Report: VBG pH 7.42 7.32-7.43 METER #: [id number] additional_comment: Jeovany cazares ctrbb henriquezc VBG pCO2 42 METER #: [id number] additional_comment: Jeovany cazares ctrbb henriquezc VBG pO2 35 METER #: [id number] additional_comment: Jeovany cazares ctrbb henriquezc VBG Base Excess 3.7 METER #: [id number] additional_comment: Jeovany cazares ctrbb henriquezc VBG HCO3 28 22-26 mmol/L METER #: [id number] additional_comment: Cb debora ctrbb henriquezc VBG O2 % Saturation 62.0 METER #: [id number] additional_comment: Jeovany cazares ctrbb henriquezc Complete Blood Count Auto Di ff Reviewed date:01/11/2024 01:49:26 PM Interpretation: Performing Lab:[facility], [address] [place] [phone] Notes/Report: White Blood Count 14.9 4.8-10.8 X10*3/uL [...] Reviewed date:01/11/2024 08:19:34 PM Interpretation: Performing Lab:[facility], [address] [place] [phone] Notes/Report: White Blood Count 14.3 4.8-10.8 X10*3/uL [...] REVIEW Reviewed date:01/11/2024 08:19:34 PM Interpretation: Performing Lab:[address] [address] Notes/Report: SLIDE REVIEW VERIFIED Basic Metabolic Panel Reviewed date:01/12/2024 07:43:31 AM Interpretation: Performing Lab:[facility] [address] [address] Notes/Report: Sodium 133 135-145 mmol/L Potassium 4.0 [...] Phosphorus Reviewed date:01/12/2024 07:43:31 AM Interpretation: Performing Lab:[address] [address] Notes/Report: Phosphorus 2.7 2.7-4.5 mg/dL Magnesium Reviewed date:01/12/2024 07:43:31 AM Interpretation: Performing Lab:[address] [address] Notes/Report: Magnesium 2.4 1.6-2.6 mg/dL Complete Blood Count no Diff Reviewed date:01/13/2024 07:58:52 PM Interpretation: Performing Lab:[address] [address] Notes/Report: White Blood Count 11.9 4.8-10.8 X10*3/uL [...] Reviewed date:01/12/2024 07:43:31 AM Interpretation: Performing Lab:[facility], [address] [place] [address] Notes/Report: White Blood Count 11.0 4.8-10.8 X10*3/uL [...] Reviewed date:01/12/2024 07:43:31 AM Interpretation: Performing Lab:[facility], [address] [place] [address] Notes/Report: Sodium 139 135-145 mmol/L Potassium 3.9 [...] Reviewed date:01/12/2024 07:43:31 AM Interpretation: Performing Lab:[facility], [address] [place] [address] Notes/Report: Phosphorus 2.8 2.7-4.5 mg/dL Magnesium Reviewed date:01/12/2024 07:43:31 AM Interpretation: Performing Lab:[facility], [address] [place] [phone] Notes/Report: Magnesium 2.3 1.6-2.6 mg/dL SLIDE REVIEW Reviewed date:01/12/2024 07:43:31 AM Interpretation: Performing Lab:[facility], [address] [place] [phone] Notes/Report: SLIDE REVIEW VERIFIED Venous Blood Gases - POC Reviewed date:01/12/2024 07:43:31 AM Interpretation: Performing Lab:[facility], [address] [place] [address] Notes/Report: VBG pH 7.41 7.32-7.43 METER #: [id number] additional_comment: Jeovany schwartz VBG pCO2 47 METER #: [id number] additional_comment: Jeovany stevenson henseveriano VBG pO2 34 METER #: [id number] additional_comment: Jeovany stevenson henric VBG Base Excess 5.9 METER #: [id number] additional_comment: Jeovany schwartz VBG HCO3 31 22-26 mmol/L METER #: [id number] additional_comment: Jeovany schwartz VBG O2 % Saturation 56.0 METER #: [id number] additional_comment: Jeovany schwartz Complete Blood Count Auto Di ff Reviewed date:01/12/2024 07:43:31 AM Interpretation: Performing Lab:[facility], [address] [place] [phone] Notes/Report: White Blood Count 10.7 4.8-10.8 X10*3/uL [...] Reviewed date:01/13/2024 07:58:52 PM Interpretation: Performing Lab:[facility], [address] [place] [phone] Notes/Report: White Blood Count 11.2 4.8-10.8 X10*3/uL [...] Reviewed date:01/13/2024 07:58:52 PM Interpretation: Performing Lab:[facility], [address] [place] [address] Notes/Report: White Blood Count 12.6 4.8-10.8 X10*3/uL [...] Reviewed date:01/13/2024 07:58:52 PM Interpretation: Performing Lab:[facility], [address] [place] [address] Notes/Report: White Blood Count 11.1 4.8-10.8 X10*3/uL [...] Reviewed date:01/13/2024 07:58:52 PM Interpretation: Performing Lab:[facility], [address] [place] [phone] Notes/Report: Sodium 137 135-145 mmol/L Potassium 3.8 [...] Reviewed date:01/13/2024 07:58:52 PM Interpretation: Performing Lab:[facility], [address] [place] [address] Notes/Report: Phosphorus 3.0 2.7-4.5 mg/dL Magnesium Reviewed date:01/13/2024 07:58:52 PM Interpretation: Performing Lab:[facility], [address] [place] [address] Notes/Report: Magnesium 2.3 1.6-2.6 mg/dL Albumin Level Reviewed date:01/13/2024 07:58:52 PM Interpretation: Performing Lab:[facility], [address] [place] [address] Notes/Report: Albumin Level 3.5 3.5-5.0 g/dL SLIDE REVIEW Reviewed date:01/13/2024 07:58:52 PM Interpretation: Performing Lab:[facility], [address] [place] [phone] Notes/Report: SLIDE REVIEW VERIFIED Venous Blood Gases - POC Reviewed date:01/13/2024 07:58:52 PM Interpretation: Performing Lab:[facility], [address] [place] [address] Notes/Report: VBG pH 7.46 7.32-7.43 METER #: [id number] additional_comment: Jeovany aguilarbb henric VBG pCO2 37 METER #: [id number] additional_comment: Jeovany martinez ctrbb henric VBG pO2 55 METER #: [id number] additional_comment: Jeovany aguilarbb henric VBG Base Excess 3.2 METER #: [id number] additional_comment: Jeovany aguilarbb henric VBG HCO3 27 22-26 mmol/L METER #: [id number] additional_comment: Jeovany martinez ctrbb henric VBG O2 % Saturation 87.0 METER #: [id number] additional_comment: Jeovany aguilarbb henric Complete Blood Count Auto Di ff Reviewed date:01/13/2024 07:58:52 PM Interpretation: Performing Lab:[facility], [address] [place] [phone] Notes/Report: White Blood Count 12.6 4.8-10.8 X10*3/uL [...] Reviewed date:01/15/2024 06:02:02 AM Interpretation: Performing Lab:[facility], [address] [place] [address] Notes/Report: White Blood Count 13.1 4.8-10.8 X10*3/uL [...] Reviewed date:01/15/2024 06:02:02 AM Interpretation: Performing Lab:[facility], [address] [place] [phone] Notes/Report: White Blood Count 12.1 4.8-10.8 X10*3/uL [...] Hematocrit Reviewed date:01/15/2024 06:02:02 AM Interpretation: Performing Lab:[address] [address] Notes/Report: Hemoglobin 7.9 14.0-18.0 g/dl Hematocrit 23.5 42.0-52.0 % Basic Metabolic Panel Reviewed date:01/15/2024 06:02:02 AM Interpretation: Performing Lab:[address] [address] Notes/Report: Sodium 136 135-145 mmol/L Potassium 3.8 [...] Reviewed date:01/15/2024 06:02:02 AM Interpretation: Performing Lab:[facility], [address] [place] [address] Notes/Report: Phosphorus 2.8 2.7-4.5 mg/dL Magnesium Reviewed date:01/15/2024 06:02:02 AM Interpretation: Performing Lab:[facility], [address] [place] [address] Notes/Report: Magnesium 2.2 1.6-2.6 mg/dL Albumin Level Reviewed date:01/15/2024 06:02:02 AM Interpretation: Performing Lab:[facility], [address] [place] [address] Notes/Report: Albumin Level 3.4 3.5-5.0 g/dL SLIDE REVIEW Reviewed date:01/15/2024 06:02:02 AM Interpretation: Performing Lab:[facility], [address] [place] [address] Notes/Report: SLIDE REVIEW VERIFIED Complete Blood Count no Diff Reviewed date:01/16/2024 08:51:12 AM Interpretation: Performing Lab:[address] [address] Notes/Report: White Blood Count 12.7 4.8-10.8 X10*3/uL [...] Reviewed date:01/16/2024 08:51:12 AM Interpretation: Performing Lab:[facility], [address] [place] [address] Notes/Report: White Blood Count 9.9 4.8-10.8 X10*3/uL [...] Panel Reviewed date:01/17/2024 05:05:01 AM Interpretation: Performing Lab:[facility], [address] [place] [address] Notes/Report: Sodium 135 135-145 mmol/L Potassium 4.2 [...] Reviewed date:01/17/2024 05:05:01 AM Interpretation: Performing Lab:[facility], [address] [place] [address] Notes/Report: Magnesium 2.3 1.6-2.6 mg/dL Complete Blood Count Auto Di ff Reviewed date:01/18/2024 08:33:04 PM Interpretation: Performing Lab:[facility], [address] [place] [address] Notes/Report: White Blood Count 12.0 4.8-10.8 X10*3/uL [...] te Reviewed date:01/18/2024 08:33:04 PM Interpretation: Performing Lab:[facility], [address] [place] [address] Notes/Report: Erythrocyte Sedimentation Rate 92 0-15 MM/HR Patients with polycythemia and many hemoglobin abnormalities may have depressed sed rates whereas patients with anemia may have elevated sed rates. Prothrombin Time INR Reviewed date:01/18/2024 08:33:04 PM Interpretation: Performing Lab:[facility], [address] [place] [phone] Notes/Report: Prothrombin Time 13.4 10.9-12.4 SEC INTERNATIONAL [...] Panel Reviewed date:01/18/2024 08:33:04 PM Interpretation: Performing Lab:[facility], [address] [place] [address] Notes/Report: Sodium 134 135-145 mmol/L Potassium 4.2 [...] Acid Reviewed date:01/18/2024 08:33:04 PM Interpretation: Performing Lab:[facility], [address] [place] [address] Notes/Report: Lactic Acid 1.3 0.5-2.0 mmol/L C Reactive Protein Reviewed date:01/18/2024 08:33:04 PM Interpretation: Performing Lab:[facility], [address] [place] [address] Notes/Report: C Reactive Protein 14.10 < or = 0.50 mg/dL Lipase Reviewed date:01/18/2024 08:33:04 PM Interpretation: Performing Lab:[facility], [address] [place] [address] Notes/Report: Lipase 24 8-78 U/L SLIDE REVIEW Reviewed date:01/18/2024 08:33:04 PM Interpretation: Performing Lab:[facility], [address] [place] [address] Notes/Report: SLIDE REVIEW VERIFIED Blood Culture (First) Reviewed date:01/24/2024 07:41:27 AM Interpretation: Performing Lab:[facility], [address] [place] [address] Notes/Report: Blood Culture (First) No growth after 5 days. Blood Culture (Second) Reviewed date:01/24/2024 07:41:27 AM Interpretation: Performing Lab:[facility], [address] [place] [address] Notes/Report: Blood Culture (Second) No growth after 5 days. US arterial duplex LE RT Reviewed date:01/21/2024 07:35:28 AM Interpretation: Performing Lab: Notes/Report: [address] [place] [address] Ultrasound Report Signed with Addenda Patient: Zan Encinas MR#: [id number] : 1960 Acct:[id number] Age/Sex: 63 / M ADM Date: 01/18/24 Loc: .ED Attending Dr: Ordering Physician: Yuriy Dunbar Date of Service: 01/18/24 Procedure(s): US arterial duplex LE RT Accession Number(s): [id number] cc: Quinton Callahan MD; Yuriy Dunbar ADDENDUM ADDENDUM #1 Findings were communicated by telephone with Dr. Gerard by Dr. Zarate at 4 hours. Electronically signed by: Placido Zarate MD 01/18/2024 08:41 PM EST RP Addendum Dictated By: Yuriy Zarate MD Addendum [...] in OV> 01/18/242032 DD/ 150 TD/TT: 01/18/241505 Metal Control Worker: BLANCA [address] [address] Ultrasound Report Signed with Addenda Patient: Zan Encinas MR#: [id number] : 1960 Acct:[id number] Age/Sex: 63 / M ADM Date: 01/18/24 Loc: .ED Attending Dr: Ordering Physician: Yuriy Dunbar Date of Service: 01/18/24 Procedure(s): US arterial duplex LE RT Accession Number(s): [id number] cc: Quinton Callahan MD; Yuriy Dunbar ADDENDUM [...] OV> 01/18/242032 DD/ 1503 TD/TT: 01/18/24 1506 Metal Control Worker: BLANCA XR foot RT min 3V Reviewed date:01/18/2024 08:33:04 PM Interpretation: Performing Lab: Notes/Report: [address] [address] XRay Report Signed Patient: Zan Encinas MR#: [id number] : 1960 Acct:[id number] Age/Sex: 63 / M ADM Date: 01/18/24 Loc: HO.ED Attending Dr: Ordering Physician: Yuriy Dunbar Date of Service: 01/18/24 Procedure(s): XR foot RT min 3V Accession Number(s): [id number] cc: Quinton Callahan MD; Yuriy Dunbar EXAMINATION: [...] by: Kaushal Cohen MD 01/18/2024 04:19 PM [facility] Dictated By: Kaushal Cohen MD Signed By: <Electronically signed by Kaushal Cohen MD in OV> 01/18/24 1619 DD/ 1516 TD/TT: 01/18/24 1534 Metal Control Worker: MICHELA [address] [address] XRay Report Signed Patient: Zan Encinas MR#: [id number] : 1960 Acct:[id number] Age/Sex: 63 / M ADM Date: 01/18/24 Loc: HO.ED Attending Dr: Ordering Physician: Yuriy Dunbar Date of Service: 01/18/24 Procedure(s): XR chito t RT min 3V Accession Number(s): [id number] cc: Quinton Callahan MD; Yuriy Dunbar EXAMINATION: [...] by: Kaushal Cohen MD 01/18/2024 04:19 PM [facility] Dictated By: Kaushal Cohen MD Signed By: <Electronically signed by Kaushal Cohen MD in OV> 01/18/24 1619 DD/ 1516 TD/TT: 01/18/24 1534 Metal Control Worker: MICHELA Complete Blood Count no Diff Reviewed date:02/04/2024 11:35:53 AM Interpretation: Performing Lab:[facility], [address] [place] [address] Notes/Report: White Blood Count 11.5 4.8-10.8 X10*3/uL [...] INR Reviewed date:02/04/2024 11:35:53 AM Interpretation: Performing Lab:[address] [address] Notes/Report: Prothrombin Time 13.0 10.9-12.4 SEC INTERNATIONAL [...] Time Reviewed date:02/04/2024 11:35:53 AM Interpretation: Performing Lab:[address] [address] Notes/Report: Partial Thromboplastin Time 33.9 26.0-36.8 SEC For information regarding the monitoring of direct thrombin inhibitors, please refer to Pharmacy. Basic Metabolic Panel Reviewed date:02/04/2024 11:35:53 AM Interpretation: Performing Lab:[address] [address] Notes/Report: Sodium 138 135-145 mmol/L Potassium 4.4 [...] Reviewed date:02/08/2024 08:35:16 AM Interpretation: Performing Lab:[facility], [address] [place] [phone] Notes/Report: ---- Name: Toney Encinas Age/Sex: 63/M : 1960 Unit#: [id number] Attend Dr: Bimal Knott MD Re02/04/24 Status : ADM IN Location: [facility] 364-1 Disch: ---- SPEC : [id number] RECD : 02/04/24 STATUS: YUSUF REClemente NUM: [id number] FRANTZ: 02/04/24-[address] [facility] [address]: Bimal Knott MD ENTERED: [...] label ed ?right leg? is a right bvysp-lwf-grtr amputation specimen which measures 34.0 cm in [...] No other erosions or ulcers are identified. Referral Specialist sections are submitted labeled as follows: [...] joanie Cuevas Age/Sex: 63/M : 1960 Unit#: [id number] Attend Dr: Bimal Knott MD Re02/04/24 Status : ADM IN Location: [facility] 364-1 Disch: ---- SPEC : [id number] RECD : 02/04/24 STATUS: YUSUF MATHUR NUM: [id number] FRANTZ: 02/04/[address] [facility] [address]: Bimal Knott MD ENTERED: 02/04/24 16 SP TYPE: Surgical OTHR DR: Quinton Callahan MD ORDERED: Gross Micro L5 Copies To: Quinton Callahan MD [address] [facility] [place] [address] Bimal Knott MD [facility] Vascular Services [address] [facility] [address] [place] [address] ---- Signed (signature on file) [place] 02/06/24 1550 ---- END OF REPORT Type and Screen Reviewed date:02/04/2024 11:35:53 AM Interpretation: Performing Lab:[facility], [address] [place] [address] Notes/Report: Blood Type OP Antibody Screen NEGATIVE Complete Blood Count no Diff Reviewed date:02/08/2024 08:35:16 AM Interpretation: Performing Lab:[facility], [address] [place] [address] Notes/Report: White Blood Count 9.4 4.8-10.8 X10*3/uL [...] Reviewed date:02/08/2024 08:35:16 AM Interpretation: Performing Lab:[facility], [address] [place] [address] Notes/Report: White Blood Count 11.2 4.8-10.8 X10*3/uL [...] Panel Reviewed date:02/08/2024 08:35:16 AM Interpretation: Performing Lab:[address] [address] Notes/Report: Sodium 137 135-145 mmol/L Potassium 3.9 [...] REVIEW Reviewed date:02/08/2024 08:35:16 AM Interpretation: Performing Lab:[address] [address] Notes/Report: SLIDE REVIEW VERIFIED Complete Blood Count no Diff Reviewed date:02/08/2024 08:35:16 AM Interpretation: Performing Lab:[address] [place] [address] Notes/Report: White Blood Count 9.3 4.8-10.8 X10*3/uL [...] Panel Reviewed date:02/08/2024 08:35:16 AM Interpretation: Performing Lab:[address] [address] Notes/Report: Sodium 136 135-145 mmol/L Potassium 3.8 [...] Level Reviewed date:02/08/2024 08:35:16 AM Interpretation: Performing Lab:[address] [address] Notes/Report: Albumin Level 2.7 3.5-5.0 g/dL Complete Blood Count no Diff Reviewed date:02/08/2024 08:35:16 AM Interpretation: Performing Lab:[facility], [address] [place] [phone] Notes/Report: White Blood Count 9.0 4.8-10.8 X10*3/uL [...] Gel Reviewed date:02/08/2024 08:35:16 AM Interpretation: Performing Lab:[facility], [address] [place] [address] Notes/Report: Hold Green Gel See Note Specimen held untested for 24 hours; Call to request Chemistry testing. Complete Blood Count Auto Di ff Reviewed date:05/27/2024 08:42:02 AM Interpretation: Performing Lab:[facility], [address] [place] [address] Notes/Report: White Blood Count 10.9 4.8-10.8 X10*3/uL [...] te Reviewed date:05/27/2024 08:42:02 AM Interpretation: Performing Lab:[address] [address] Notes/Report: Erythrocyte Sedimentation Rate 10 0-15 MM/HR Patients with polycythemia and many hemoglobin abnormalities may have depressed sed rates whereas patients with anemia may have elevated sed rates. Comprehensive Met. Panel Reviewed date:05/27/2024 08:42:02 AM Interpretation: Performing Lab:[address] [address] Notes/Report: Sodium 138 135-145 mmol/L Potassium 4.3 [...] Acid Reviewed date:05/27/2024 08:42:02 AM Interpretation: Performing Lab:[facility], [address] [place] [address] Notes/Report: Lactic Acid 1.4 0.5-2.0 mmol/L C Reactive Protein Reviewed date:05/27/2024 08:42:02 AM Interpretation: Performing Lab:[facility], [address] [place] [address] Notes/Report: C Reactive Protein 1.01 < or = 0.50 mg/dL Blood Culture (First) Reviewed date:06/07/2024 04:51:50 AM Interpretation: Performing Lab:[facility], [address] [place] [address] Notes/Report: Blood Culture (First) No growth after 5 days. Blood Culture (Second) Reviewed date:06/07/2024 04:51:50 AM Interpretation: Performing Lab:[facility], [address] [place] [phone] Notes/Report: Blood Culture (Second) No growth after 5 days. XR knee RT 4V Reviewed date:05/27/2024 08:42:02 AM Interpretation: Performing Lab: Notes/Report: [address] [address] XRay Report Signed Patient: Zan Encinas MR#: [id number] : 1960 Acct:[id number] Age/Sex: 64 / M ADM Date: 05/26/24 Loc: HO.ED Attending Dr: Ordering Physician: Gt Cruz Date of Service: 05/26/24 Procedure(s): XR knee RT 4V Accession Number(s): [id number] cc: Gt Cruz; Quinton Callahan MD EXAMINATION: XR KNEE, RIGHT CLINICAL INFORMATION: Right stump erythema/pus discharge COMPARISON: 10/01/2023. TECHNIQUE: Four views of the right knee. FINDINGS: There is mild generalized osteopenia. There has been a vridj-xub-rwls amputation. There are no permeative changes involving [...] 05/26/24 1532 DD/ 1452 TD/TT: 05/26/24 1510 Metal Control Worker: [place] [address] XRay Report Signed Patient: Zan Encinas MR#: [id number] : 1960 Acct:[id number] Age/Sex: 64 / M ADM Date: 05/26/24 Loc: HO.ED Attending Dr: Ordering Physician: Gt Cruz Date of Service: 05/26/24 Procedure(s): XR kne e RT 4V Accession Number(s): [id number] cc: Gt Cruz; Quinton Callahan MD EXAMINATION: XR KNEE, RIGHT CLINICAL INFORMATION: Right stump erythema /pus discharge COMPARISON: 10/01/2023. TECHNIQUE: Four views of the ri ght knee. FINDINGS: There is mild generalized osteopenia. There has been a vuwgd-wgh-jojx amputation. There are no permeative changes involving [...] 05/26/24 1532 DD/ 1452 TD/TT: 05/26/24 1510 Metal Control Worker: Complete Blood Count Auto Di ff Reviewed date:05/27/2024 08:42:02 AM Interpretation: Performing Lab:[facility], [address] [place] [address] Notes/Report: White Blood Count 9.2 4.8-10.8 X10*3/uL [...] Panel Reviewed date:05/27/2024 08:42:02 AM Interpretation: Performing Lab:[address] [address] Notes/Report: Sodium 140 135-145 mmol/L Potassium 3.8 [...] Creatinine Reviewed date:05/27/2024 08:42:02 AM Interpretation: Performing Lab:[address] [address] Notes/Report: Creatinine 0.84 0.5-1.4 mg/dL Creatinine Clr [...] Random Reviewed date:05/28/2024 04:55:44 AM Interpretation: Performing Lab:[facility], [address] [place] [address] Notes/Report: Vancomycin Random 13.2 15-20 mcg/mL MR knee RT wo/w con Reviewed date:05/28/2024 04:55:44 AM Interpretation: Performing Lab: Notes/Report: [address] [place] [address] Magnetic Resonance Report Signed Patient: Zan Encinas MR#: [id number] : 1960 Acct:[id number] Age/Sex: 64 / M ADM Date: 05/26/24 Loc: .S3 376-[address]: Luciano Mari MD Ordering Physician: Keith Menendez MD Date of Service: 05/27/24 Procedure(s): MR knee RT wo/w con Accession Number(s): [id number] cc: Quinton Callahan MD; Keith Menendez MD [...] 05/27/24 1626 DD/ 1527 TD/TT: 05/27/24 1549 Metal Control Worker: [place] [address] Magnetic Resonance Report Signed Patient: Zan Encinas MR#: [id number] : 1960 Acct:[id number] Age/Sex: 64 / M ADM Date: 05/26/24 Loc: .S3 376-[address]: Alfredo Mari MD Ordering Physician: Keith Menendez MD Date of Service: 05/27/24 Procedure(s): kngenevieve e RT wo/w con Accession Number(s): [id number] cc: Quinton Callahan MD; Keith Menendez MD [...] 05/27/24 1626 DD/ 1527 TD/TT: 05/27/24 1549 Metal Control Worker: Berenice Reviewed date:05/28/2024 02:19:09 PM Interpretation: Performing Lab:[facility], [address] [place] [address] Notes/Report: Creatinine 0.81 0.5-1.4 mg/dL Creatinine Clr [...] Random Reviewed date:05/30/2024 07:30:54 PM Interpretation: Performing Lab:[facility], [address] [place] [address] Notes/Report: Vancomycin Random 13.4 15-20 mcg/mL Hold Lav - Possible Hematolo gy Reviewed date:05/30/2024 07:30:54 PM Interpretation: Performing Lab:[facility], [address] [place] [address] Notes/Report: Hold Lav - Possible Hematology SEE NOTE Specimen will be held untested for 8 hours. Call Hematology if testing is desired. Creatinine Reviewed date:05/30/2024 07:30:54 PM Interpretation: Performing Lab:[facility], [address] [place] [address] Notes/Report: Creatinine 0.79 0.5-1.4 mg/dL Creatinine Clr [...] Reviewed date:07/01/2024 10:06:14 AM Interpretation: Performing Lab:[facility], [address] [place] [id number] Notes/Report: White Blood Count 8.9 4.8-10.8 X10*3/uL [...] Reviewed date:07/01/2024 10:06:14 AM Interpretation: Performing Lab:[facility], [address] [place] [phone] Notes/Report: Creatinine 1.10 0.5-1.4 mg/dL Estimated Glomerular Filt Rate > 60 Chronic Kidney Disease: Estimated GFR < 60 mL/min/1.73m2 Severe Kidney Disease: Estimated GFR < 15 mL/min/1.73m2 Vancomycin Trough Reviewed date:07/01/2024 10:06:14 AM Interpretation: Performing Lab:[facility], [address] [place] [phone] Notes/Report: Vancomycin Trough 20.4 10.0-20.0 mcg/mL Complete Blood Count no Diff Reviewed date:10/13/2024 03:48:51 PM Interpretation: Performing Lab:[facility], [address] [place] [address] Notes/Report: White Blood Count 8.2 4.8-10.8 X10*3/uL [...] Panel Reviewed date:10/13/2024 03:48:51 PM Interpretation: Performing Lab:[facility], [address] [place] [address] Notes/Report: Sodium 142 135-145 mmol/L Potassium 4.5 [...] stain Reviewed date:10/21/2024 05:29:45 AM Interpretation: Performing Lab:[facility], [address] [place] [phone] Notes/Report: BONE RIGHT TIBIA BONE RIGHT TIBIA Gram stain Gram stain results: Gram stain No polys Gram stain 4+ red blood cells Gram stain No organisms seen Routine Culture Reviewed date:10/13/2024 03:48:51 PM Interpretation: Performing Lab:[facility], [address] [place] [phone] Notes/Report: RIGHT BKA DEEP CULTURE Routine Culture Report - external Routine Culture 1+ Mixed skin rocio O:STAAUR Staphylococcus aureus Routine Culture Quant Org ID Routine Culture 1+ Clindamycin <=0.25 Erythromycin <=0.25 Levofloxacin 0.25 Oxacillin 0.5 Penicillin-G >=0.5 Tetracycline <=1 Trimethoprim/Sulfamethox azole <=10 Anaerobic Culture Reviewed date:10/21/2024 05:29:45 AM Interpretation: Performing Lab:[facility], [address] [place] [phone] Notes/Report: BONE RIGHT TIBIA BONE RIGHT TIBIA Anaerobic Culture Report Anaerobic Culture No anaerobes isolated. Gram stain Reviewed date:10/13/2024 03:48:51 PM Interpretation: Performing Lab:[facility], [address] [place] [phone] Notes/Report: RIGHT BKA DEEP CULTURE Gram stain Gram stain results: Gram stain 1+ polys Gram stain 4+ red blood cells Gram stain No organisms seen Routine Culture Reviewed date:10/21/2024 05:29:45 AM Interpretation: Performing Lab:[facility], [address] [place] [phone] Notes/Report: Clindamycin <=0.25 Erythromycin <=0.25 Levofloxacin 0.25 Oxacillin 0.5 Penicillin-G >=0.5 Tetracycline <=1 Trimethoprim/Sulfamethox azole <=10 Clindamycin >=8 Erythromycin >=8 Levofloxacin <=0.12 Oxacillin >=4 Penicillin-G >=0.5 Tetracycline >=16 Trimethoprim/Sulfamethox azole 160 Vancomycin 1 Complete Blood Count Auto Di ff Reviewed date:10/21/2024 05:29:45 AM Interpretation: Performing Lab:[address] [address] Notes/Report: White Blood Count 8.1 4.8-10.8 X10*3/uL [...] te Reviewed date:10/21/2024 05:29:45 AM Interpretation: Performing Lab:[facility], [address] [place] [phone] Notes/Report: Erythrocyte Sedimentation Rate 5 0-15 MM/HR Patients with polycythemia and many hemoglobin abnormalities may have depressed sed rates whereas patients with anemia may have elevated sed rates. Comprehensive Met. Panel Reviewed date:10/21/2024 05:29:45 AM Interpretation: Performing Lab:[facility], [address] [place] [phone] Notes/Report: Sodium 139 135-145 mmol/L Potassium 4.3 [...] Protein Reviewed date:10/21/2024 05:29:45 AM Interpretation: Performing Lab:[facility], [address] [place] [phone] Notes/Report: C Reactive Protein 0.52 < or = 0.50 mg/dL Gram stain Reviewed date:10/24/2024 02:48:30 PM Interpretation: Performing Lab:[facility], [address] [place] [phone] Notes/Report: R BKA surgical site Gram stain Gram stain results: Gram stain 3+ polys Gram stain 2+ epithelial cells Gram stain 3+ Gram-negative rods Gram stain 1+ Gram-positive cocci Routine Culture Reviewed date:10/24/2024 02:48:30 PM Interpretation: Performing Lab:[address] [address] Notes/Report: R BKA surgical site O:PSEAER Pseudomonas aeruginosa Routine Culture Quant Org ID Routine Culture 3+ O:CORSPE Corynebacterium species Routine Culture No susc Routine Culture Standard methods for susceptibility testing not established. Routine Culture Quant Org ID Routine Culture 2+ Cefepime 2 Ciprofloxacin 0.12 Gentamicin <=1 Meropenem 0.5 Piperacillin/Tazobactam <=4 Blood Culture (First) Reviewed date:11/07/2024 05:47:41 AM Interpretation: Performing Lab:[address] [address] Notes/Report: Blood Culture (First) No growth after 5 days. Blood Culture (Second) Reviewed date:11/07/2024 05:47:41 AM Interpretation: Performing Lab:[address] [address] Notes/Report: Blood Culture (Second) No growth after 5 days. XR knee RT 4V Reviewed date:10/21/2024 05:29:45 AM Interpretation: Performing Lab: Notes/Report: [address] [address] XRay Report Signed Patient: Zan Encinas MR#: [id number] : 1960 Acct:[id number] Age/Sex: 64 / M ADM Date: 10/20/24 Loc: HO.ED Attending Dr: Ordering Physician: Pooja Tapia Date of Service: 10/20/24 Procedure(s): XR knee RT 4V Accession Number(s): [id number] cc: Quinton Callahan MD; Pooja Tapia EXAMINATION: [...] Alfredo Kumar MD 10/20/2024 01:11 PM EDT RP Dictated By: Alfredo Kumar MD Signed By: <Electronically signed by Alfredo Kumar MD in OV> 10/20/24 1311 DD/ 1156 TD/TT: 10/20/24 1300 Metal Control Worker: [place] [id number] XRay Report Signed Patient: Zan Encinas MR#: [id number] : 1960 Acct:[id number] Age/Sex: 64 / M ADM Date: 10/20/24 Loc: HO.ED Attending Dr: Ordering Physician: Pooja Tapia Date of Service: 10/20/24 Procedure(s): XR kne e RT 4V Accession Number(s): [id number] cc: Quinton Callahan MD; Pooja Tapia EXAMINATION: XR KNEE, RIGHT CLINICAL INFORMATION: BKA, concern for osteo COMPARISON: May 26, 2024 TECHNIQUE: Four views of the [facility] knee. FINDINGS: Redemonstrated are changes related to [...] Alfredo Kumar MD 10/20/2024 01:11 PM EDT RP Dictated By: Alfredo Kumar MD Signed By: <Electronically signed by Alfredo Kumar MD in OV> 10/20/24 1311 DD/ 1156 TD/TT: 10/20/24 1300 Metal Control Worker: Complete Blood Count no Diff Reviewed date:10/24/2024 02:48:30 PM Interpretation: Performing Lab:[facility], [address] [place] [address] Notes/Report: White Blood Count 6.8 4.8-10.8 X10*3/uL [...] Panel Reviewed date:10/24/2024 02:48:30 PM Interpretation: Performing Lab:[address] [address] Notes/Report: Sodium 142 135-145 mmol/L Potassium 4.3 [...] T4 Reviewed date:10/24/2024 02:48:30 PM Interpretation: Performing Lab:[address] [address] Notes/Report: TSH reflex Free T4 1.34 0.32-4.0 uIU/mL Vancomycin Random Reviewed date:10/24/2024 02:48:30 PM Interpretation: Performing Lab:[address] [address] Notes/Report: Vancomycin Random 12.7 15-20 mcg/mL Hold Lav - Possible Hematolo gy Reviewed date:10/24/2024 02:48:30 PM Interpretation: Performing Lab:[address] [address] Notes/Report: Hold Lav - Possible Hematology SEE NOTE Specimen will be held untested for 8 hours. Call Hematology if testing is desired. Creatinine Reviewed date:10/24/2024 02:48:30 PM Interpretation: Performing Lab:[address] [address] Notes/Report: Creatinine 1.09 0.5-1.4 mg/dL Creatinine Clr [...] Random Reviewed date:10/24/2024 02:48:30 PM Interpretation: Performing Lab:[facility], [address] [place] [phone] Notes/Report: Vancomycin Random 12.4 15-20 mcg/mL Hold Lav - Possible Hematolo gy Reviewed date:10/24/2024 02:48:30 PM Interpretation: Performing Lab:[facility], [address] [place] [address] Notes/Report: Hold Lav - Possible Hematology SEE NOTE Specimen will be held untested for 8 hours. Call Hematology if testing is desired. Creatinine Reviewed date:10/24/2024 02:48:30 PM Interpretation: Performing Lab:[facility], [address] [place] [address] Notes/Report: Creatinine 1.14 0.5-1.4 mg/dL Creatinine Clr [...] Random Reviewed date:10/24/2024 02:48:30 PM Interpretation: Performing Lab:[facility], [address] [place] [phone] Notes/Report: Vancomycin Random 18.9 15-20 mcg/mL US renal BI Reviewed date:12/06/2024 06:19:52 AM Interpretation: Performing Lab: Notes/Report: [address] [address] Ultrasound Report Signed Patient: Zan Encinas MR#: [id number] : 1960 Acct:[id number] Age/Sex: 64 / M ADM Date: 12/04/24 Loc: . Attending Dr: Chloe PACHECO Ordering Physician: Chloe Flores Date of Service: 12/04/24 Procedure(s): US renal BI Accession Number(s): [id number] cc: Quinton Callahan MD; Chloe Flores Reason [...] by Pineda Benito MD in OV> 12/05/24 1347 DD/ 1346 TD/TT: 12/05/24 1346 Metal Control Worker: [place] [id number] Ultrasound Report Signed Patient: Zan Encinas MR#: [id number] : 1960 Acct:[id number] Age/Sex: 64 / M ADM Date: 12/04/24 Loc: .US Attending Dr: Chloe MADDENPSACHIN Ordering Physician: Chloe Flores Date of Service: 12/04/24 Procedure(s): US hubert al BI Accession Number(s): [id number] cc: Quinton Callahan MD; Chloe Flores Reason for Exam: N28 .1 - Cyst [...] by Pineda Benito MD in OV> 12/05/24 1347 DD/ 134 TD/TT: 12/05/241345 Metal Control Worker: Reason For Referral Reason Evaluate and Treat Irregular Heart Rate History of A-Fib Diagnosis 1 Irregular heart rate (I49.9) Diagnosis 2 Left bundle branch b lock (I44.7) Diagnosis 3 History of atrial fi brillation (Z86.79) Referral Organization Quinton Callahan III, MD Referring Provider First Name Quinton Referring Provider Last Name [place] Referring Provider Speciality Internal edicine Referred Provider [facility] er, Cardiology Referred Provider Specialty Cardiology General Notes D, 09/22/2024 11:10:39 AM > Faxed referral with progress note, D10/09/2024 10:26:29 AM > patient was seen in the past on 08/06/2023 and has a follow up appointment scheduled for 01/28/25 @ 1:15pm. Spoke with [facility] stated they did not receive the referral and to refax it so the patient is able to be seen sooner than 01/28/25., Blaise, Luz 10/22/2024 02:20:35 PM > Patient is currently Admitted into .Blaise, 11/14/2024 02:25:27 PM > Spoke with Marlena patient has not been contacted or seen sooner. Stated she will be putting in a message to Dr. Ferrer's emergency medical service coordinator to ask if the patient can be [...] Provider Specialty Urology General Notes Jolie Gonzalez [facility] 09/30 03:24:56 PM >I called [...] Specialty Gastroentero logy General Notes Jolie Gonzalez [facility] 09/30 03:23:14 PM >Called Dr [...] ASA 1 tab Oral Active DuoNeb Active Immunizations Vaccine Route Administration Date Status [...] Problem Status W/U Status Risk Notes Problem 342481825 Overweight (E66.3) Active confirmed His body mass index is 29. We discussed diet and nutrition. I recommended aggressive weight loss and sodium restriction. Problem 984268088 Mixed hyperlipidemia (E78.2) Active confirmed A comprehensive laboratory database with a fasting lipid profile will be obtained. He was continued on his currrent meddications. 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 He was counseled about this and made aware of the smoking cessation programs in the area. Problem 86082330 Tobacco dependence (F17.200) Active confirmed I have counseled him about smoking cessation and offered to refer him to smoking cessation programs in the community. He said he would consider this and try to cut down. Problem Left bundle branch block (97634007) Left bundle branch block (I44.7) Active confirmed The computer lab para professional's interpretation of the perfusion test was that the defect in the septum may be due to the bundle branch block. I will discuss this with cardiology. Problem 55479408 Hiatal hernia (K44.9) Active confirmed The symptoms of his esophageal reflux and hiatal hernia well controlled with current medications. No change in his regimen as needed. Problem 148036570 Peripheral arterial disease (I73.9) Active confirmed He is seeing the vascular surgeon eevery 2 weeks. 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 The plan is to fit him for a prosthesis. He denies any ulcers or claudication in the left leg. Problem Hoarseness (15839418) Hoarseness (R49.0) Active confirmed He will be referred to ENT for indirect laryngoscopy. Problem 8007419 Umbilical hernia without obstruction and without gangrene (K42.9) Active confirmed This is asymptomatic and requires no treatment at this time. Problem 556558133 Benign prostatic hyperplasia with lower urinary tract symptoms (N40.1) Active confirmed The tamsulosin was continued today. He will notify me if his symptoms worsen. He has had no retention. He has symptoms of prostatism. Problem 296486622 Acute right-sided low back pain with right-sided sciatica (M54.41) Active confirmed His back pain continues and I have increased the gabapentin. Problem Cardiac arrhythmia (234502770) Irregular heart rate (I49.9) Active confirmed These episodes had night have increased lately. He has had no chest pain. He has had no increase in his chronic dyspnea. Holter monitor has been ordered. He is not anticoagulated. Problem 535541941 Palmer's esophagus determined by endoscopy (K22.70) Active confirmed He is due for an endoscopy and was referred back to his gastroenterolog ist, Dr. Quinton Campos. 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 Problem 42019061444090515 Carpal tunnel syndrome on both sides (G56.03) Active confirmed He has a history of carpal tunnel syndrome treated by Dr. Raphael. He is currently asymptomatic. 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 Vascular has referred him to infectious disease for an opinion. The patient I today discussed the possibility of an wlvhr-cvi-nomv amputation and what it would be like walking. Vital Signs Heart Rate 73 /min 01/06/2025 Temperature 98.6 degrees Fahrenheit 01/06/2025 Respiratory Rate 15 /min 12/02/2024 Oximetry 96 % 12/02/2024 Blood pressure diastolic 85 mm Hg 01/06/2025 Height 73 in 01/06/2025 Blood pressure systolic 141 mm Hg 01/06/2025 Weight 197 lbs 01/06/2025 BMI 25.99 kg/m2 01/06/2025 Encounters Encounter Location Date Provider Diagnosis Quinton Callahan III, MD [address] [place] [address] [place] [address] 01/06/2025 Quinton Callahan Chronic osteomyeliti s of right tibia with draining sinus M86.461 Quinton Callahan III, MD [address] [place] [address] [place] [address] 06/12/2024 Quinton Callahan Peripheral arterial disease I73.9 ; Benign prostatic hyperplasia with lower urinary tract symptoms N40.1 ; Palmer's esophagus determined by endoscopy K22.70 ; Chronic obstructive pulmonary disease, unspecified COPD type J44.9 ; Overweight E66.3 ; Tobacco dependence F17.200 and Mixed hyperlipidemia E78.2 Quinton Callahan III, MD [address] [place] [address] [place] [address] 07/10/2024 Quinton Callahan Peripheral arterial disease I73.9 [...] Tobacco dependence F17.200 Quinton Callahan III, MD [address] [place] [address] [place] [address] 09/09/2024 Quinton Callahan Irregular heart rate I49.9 [...] draining sinus M86.461 Quinton Callahan III, MD [address] [place] [address] [place] [address] 09/30/2024 Quinton Callahan Chronic osteomyeliti s of right tibia with draining sinus M86.461 ; Overweight E66.3 ; Umbilical hernia without obstruction and without gangrene K42.9 ; Peripheral arterial disease I73.9 ; Chronic obstructive pulmonary disease, unspecified COPD type J44.9 ; Splenic vein thrombosis I82.890 ; Palmer's esophagus determined by endoscopy K22.70 and Tobacco dependence F17.200 Quinton Callahan III, MD [address] [place] [address] [place] [address] 10/29/2024 Quinton Callahan Chronic osteomyeliti s of right tibia with draining sinus M86.461 ; Tobacco dependence F17.200 ; Peripheral arterial disease I73.9 ; Palmer's esophagus determined by endoscopy K22.70 ; Chronic obstructive pulmonary disease, unspecified COPD type J44.9 ; Hiatal hernia K44.9 and Mixed hyperlipidemia E78.2 Quinton Callahan III, MD [address] [place] [address] [place] [address] 12/02/2024 Quinton Callahan Chronic osteomyeliti s of right tibia with draining sinus M86.461 ; Chronic obstructive pulmonary disease, unspecified COPD type J44.9 ; Palmer's esophagus determined by endoscopy K22.70 ; Benign prostatic hyperplasia with lower urinary tract symptoms N40.1 ; Splenic vein thrombosis I82.890 ; Hiatal hernia K44.9 ; Tobacco dependence F17.200 and Overweight E66.3 Quinton Callahan III, MD [address] [place] [address] [place] [address] 01/01/2025 Quinton Callahan III, MD [address] [place] [address] [place] [address] 02/12/2024 Quinton Callahan III, MD [address] [place] [address] [place] [address] 03/04/2024 Quinton Callahan III, MD [address] [place] [address] [place] [address] 05/02/2024 Quinton Callahan III, MD [address] [place] [address] [place] [address] 05/02/2024 Quinton Callahan Peripheral arterial disease I73.9 [facility] [address] [place], [place] [id number] 06/02/2024 Quinton Callahan III, MD [address] [place] [address] [place] [address] 07/23/2024 Quinton Callahan III, MD [address] [place] [address] [place] [address] 08/27/2024 Quinton Callahan III, MD [address] [place] [address] [address] [place], [place] [address] 09/04/2024 Quinton Callahan III, MD [address] [place] [address] [place] [address] 12/25/2024 Quinton Callahan III, MD [address] [place] [address] [place] [address] 12/30/2024 Quinton Callahan III, MD [address] [place] [address] [place] [address] 01/01/2025 Quinton Callahan Assessments Encounter Date Diagnosis (ICD Code) Assessment Notes Treat ment Notes Treatment Clinical Notes 01/06/2025 Chronic osteomyeliti s of right tibia with draining sinus (ICD-10 - M86.461) He was seen by vascular surgery just before today's visit. Vascular has referred him to infectious disease for an opinion. The patient I today discussed the possibility of an gpoiq-zgi-ocaa amputation and what it would be like walking. 06/12/2024 Peripheral arterial disease (ICD-10 - I73.9) [...] I today discussed the possibility of an ipwgc-lki-hpka amputation and what it would be like walking. 05/02/2024 Peripheral arterial disease (ICD-10 - I73.9) 06/12/2024 Palmer's esophagus determined by endoscopy (ICD-10 - K22.70) He is due for an endoscopy and was referred back to his wildlife forensic geneticist, Dr. Quinton Campos. 07/10/2024 Benign prostatic hyperplasia [...] endoscopy and was referred back to his wildlife forensic geneticist, Dr. Quinton Campos. 06/12/2024 Chronic obstructive pulmonary disease, unspecified COPD type (ICD-10 - J44.9) He has resumed smoking 5 cigarettes per day. He was counseled about this and made aware of the smoking cessation programs in the area. 07/10/2024 Palmer's esophagus determined by endoscopy (ICD-10 - K22.70) He is due for an endoscopy and was referred back to his wildlife forensic geneticist, Dr. Quinton Campos. 09/09/2024 Palmer's esophagus determined by endoscopy (ICD-10 - K22.70) He is due for an endoscopy and was referred back to his wildlife forensic geneticist, Dr. Quinton Campos. 09/30/2024 Peripheral arterial disease [...] endoscopy and was referred back to his wildlife forensic geneticist, Dr. Quinton Campos. 12/02/2024 Benign prostatic hyperplasia with lower urinary tract symptoms (ICD-10 - N40.1) The tamsulosin was continued today. He will notify me if his symptoms worsen. He has had no retention. He has symptoms of prostatism. 06/12/2024 Overweight (ICD-10 - E66.3) His body [...] have been no further signs of thromboembolism. 06/12/2024 Tobacco dependence (ICD-10 - F17.200) I [...] change in his regimen as needed. 06/12/2024 Mixed hyperlipidemia (ICD-10 - E78.2) A [...] endoscopy and was referred back to his wildlife forensic geneticist, Dr. Quinton Campos. 10/29/2024 Mixed hyperlipidemia (ICD-10 [...] this and try to cut down. 07/10/2024 Umbilical hernia without obstruction and without [...] Name:Quinton Callahan , 12/08/2025 02:30:00 PM, [address] [place] [address] [address]UR[address]O, [place], [address], Insurance Providers Payer Name Payer Address Payer Phone Subscriber Number Group Number Insured Name Patient Relationship to Insured Coverage Start Date Coverage End Date [employer] [address] [facility] [place] [address] [id number] Zan Olivo Self - patient is the insured 4 MEDICARE NGS [address] [place] [phone] [id number] Zan Olivo Self - patient is the [...] right leg Surgical History Surgery Date(Month/Year) Right fzevk-uuo-vuyt amputation 4 arteriogram right lower extremity 05/2019 upper endoscopy, [facility], Dr. Quinton Campos, Palmer's esophagus 2014 upper endoscopy and colonosc opy, [facility], Dr. 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
--- OUTSIDE RECORDS SUMMARY | 2025-01-06 14:39 | XMS_ITS | Data Portability ---
Author Organization [facility], Main Office Address [address] [place] [address] [address] [place] [address] Care Team Providers Care Cnc Technician Name Role Phone [facility] OTHER KEON HEREDIA Primary Care Provider [phone] Assessment Encounter Date Assessment Date Assessment LastModified [...] Organization Details Recorded Time Blood in urine 02156026 Active [address], [address], [place], [address], [employer] [employer] [facility] 4 10:17:42 Benign prostatic hyperplasia 991723351 Active [address], [address], [place], [address], 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 4 10:18:23 Limb ischemia 6628458852766 5 Active [address], [address], [place], [address], [facility] 4 10:19:49 Peripheral arterial disease 704050911 Active [address], [address], [place], [address], [facility] 4 10:21:45 Chronic obstructive pulmonary disease 66510051 Active [address], [address], [place], [address], [facility] 4 10:22:55 Gastroesoph ageal reflux disease 814470713 Active [address], [address], [place], [address], [facility] 4 10:23:11 Smoker 17245433 Active [address], [address], [place], [address], [facility] 4 10:23:08 Essential hypertensio n 99544271 Active [address], [address], [place], [address], [facility] 4 10:25:41 Hyperlipide angela 37950346 Active 2023 Yvonne Belcher [address] [place] [address], [address], [place], [address], [facility] 4 10:49:02 Peripheral vascular disease 444929516 Active 2023 Yvonne Belcher [address] [facility], [address], [place], [address], [facility] 4 10:49:07 Thrombosis of splenic artery 3621067214357 9106 Active 2023 Yvonne Belcher [address] [facility], [address], [place], [address], [facility] 4 10:49:17 Left bundle branch block 99694192 Active 2023 Yvonne Belcher [address] [facility], [address], [place], [address], [facility] 4 10:49:21 Palmer's esophagus 108210304 Active 2023 Yvonne Belcher [address] [facility], [address], [place], [address], [facility] 4 10:50:44 Problem Notes None recorded. [...] Every Day Smoker Iveth Diaz MD [address] [facility], [address], [place], [address], [facility] 02/11/2024 18:13:51 Do You Have An [...] Do You Have A Medical Power Of Ecclesiastical Worker? Yes Information not available 02/11/2024 What [...] (COVID-19) vaccine, UNSPECIFIED 06/25/2020 completed Nikia Montes [facility] 02/11/2024 12:20:14 SARS-COV-2 (COVID-19) vaccine, UNSPECIFIED 07/27/2020 completed Nikia Montes [facility] 02/11/2024 12:20:24 Past Encounters Encounter ID Performer Location Encounter Start Date Encounter Closed Date Diagnosis/Indication Diagnosis SNOMED-CT Code Diagnosis ICD10 Code Diagnosis IMO Codes Diagnosis Note [id number] SAMANTHA BROWNE [address] [address] 02/10/2024 10:12:50 02/11/2024 14:36:04 Limb ischemia 5919858951 9105 I99.8 now s/p right BKA due [...] daily due to bleeding Peripheral arterial insufficiency 7736926843 28220 I73.9 see aboveASA 81 mg dailyfollo wed by vascular Benign pro static hyperplasia 631684113 N40.0 continue flomax 0.8 mg qhsmonitor for outflow issues Gastroesop hageal reflux disease 803198748 K21.9 pantoprazo le 80 mg dailyconsi lia reduction if toleratesm onitor reflux Blood in urine 27751177 R31.9 had inpatientm onitor for clearing Chronic ob structive pulmonary disease 57335975 J44.9 albuterol PRNincruse dailywixel a BIDmonitor resp status Essential hypertension 98844152 I10 assumed as pt is on metoprolol 25 mg daily but no documented h[facility] keep Constipation 04175401 K5 9.00 add colace 100 mg BIDmonitor for improvemen t [id number] Iveth Diaz MD [facility] [address] [address] 02/11/2024 15:43:03 02/12/2024 15:32:16 Limb ischemia 7825092091 9105 I99.8 Will change oxycodone to 10 [...] with surgeon as planned. Peripheral arterial insufficiency 3200210567 31153 I73.89 Z89.511 As above. Benign pro static hyperplasia 140155401 N40.0 No current sxs.Contin ue tamsulosin 0.8 mg qhsMonitor urinary function Gastroesop hageal reflux disease 955716693 K21.9 No current sxs.Contin ue pantoprazo le 80 mg qdMonitor GI sxs. Blood in urine 24684007 R31.0 Had one episode inpt.Now resolved.M onitor for recurrence . Chronic ob structive pulmonary disease 67413083 J43.8 Resp status good at this time.Liv nue incruse ellipta qd, Wixela 500/50 BID, duonebs BID prn and albuterol MDI 2 puffs q 4 hrs prn.Monito r resp status. Essential hypertension 49093686 I10 In good control since here (HTN is on PCP problem list)Liv nue metoprolol 25 mg qdMonitor BP and labs. Constipation 62415056 K5 9.03 Will add miralax 17 gms qd and continue colace 100 mg BIDUse prn meds if needed.Mon itor bowel function. [id number] Nam CONKLIN AT [address] [address] 02/15/2024 10:31:46 02/18/2024 15:29:05 Postoperative wound cellulitis 284312044 L76.82 exam concerning for cellulitis with increased foul smelling discharges tart doxycyclin e 100mg BID x 10 days, probiotic qd x 14 dayscheck CBC w/diff, BMP obtain x-ray R stump r/o osteomonit or for worsening sxs Amputated below knee 299 573354 Z89.519 As above. Limb ischemia 3258005023 9105 I99.8 continue oxycodone to 10 mg q 6 hrs scheduled x 7 days, then 10 mg q 8 hrs scheduled x 7 days then 5 mg q 8 hrs prn.Add oxycodone 10mg q24h prn breakthrou gh paincontin ue APAP 975 mg TID and increase gabapentin to 600 mg TID.Contin ue ASA 81 mg qdF/U with surgeon as planned. [id number] Nam CONKLIN AT [address] [address] 02/19/2024 07:36:20 02/21/2024 12:23:04 Postoperative wound cellulitis 014006003 L76.82 Continue doxycyclin e 100mg BID x 10 days, probiotic qd x 14 dayslabs and x-ray unremarkab lemonitor for resolution Limb ischemia 6586564839 9105 I99.8 continue oxycodone 10 mg q 8 hrs scheduled x 7 days then 5 mg q 8 hrs prn. oxycodone 10mg q24h prn breakthrou gh paincontin ue APAP 975 mg TID and gabapentin to 600 mg qam and afternoon, 900mg qhsContinu e ASA 81 mg qdconsult PMR management of painF/U with surgeon as planned. Amputated below knee 299 975471 Z89.519 As above. [id number] Brandenmkasad Herrera RUBIN AT [address] [address] 02/22/2024 09:19:49 02/25/2024 15:55:50 Postoperative wound cellulitis 069548958 L76.82 Continue doxycyclin e 100mg BID x 10 days, probiotic qd x 14 dayslabs and x-ray unremarkab lemonitor for resolution Limb ischemia 5099425404 9105 I99.8 continue oxycodone 10 mg q 8 hrs scheduled x 7 days then 5 mg q 8 hrs prn. oxycodone 10mg q24h prn breakthrou gh paincontin ue APAP 975 mg TID and gabapentin to 600 mg qam and afternoon, 900mg qhsContinu e ASA 81 mg qdconsult PMR management of painF/U with surgeon as planned. Amputated below knee 299 091720 Z89.519 As above. [id number] Nam DUNCANLEY AT [address] [address] 02/25/2024 07:30:39 02/26/2024 13:58:50 Postoperative wound cellulitis 328652397 L76.82 resolvedmo nitor for recurrence Limb ischemia 1056821852 9105 I99.8 continue oxycodone 10 mg q 8 hrs scheduled x 7 days then 5 mg q 8 hrs prn. oxycodone 10mg BID prn breakthrou gh paincontin ue APAP 975 mg TID, INcrease gabapentin to 900 mg qam and afternoon, 900mg qhsContinu e ASA 81 mg qdconsult PMR management of painF/U with surgeon as planned. Amputated below knee 299 900992 Z89.519 As above. [id number] Nam CONKLIN AT [address] [address] 02/28/2024 08:43:00 02/29/2024 10:22:21 Limb ischemia 8649817350 9105 I99.8 continue oxycodone 10 mg q 8 hrs scheduled x 7 days then 5 mg q 8 hrs prn. oxycodone 10mg BID prn breakthrou gh paincontin ue APAP 975 mg TID, gabapentin to 900 mg TIDContinu e ASA 81 mg qdconsult PMR management of painF/U with surgeon as planned. Amputated below knee 299 246241 Z89.519 As above. [id number] MD RUBIN Enciso AT [address] [address] 03/03/2024 11:24:29 03/27/2024 10:48:50 Limb ischemia 7287840231 9105 I99.8 s/p amputation cleared for discharge with services and ortho f/u in placedisch arged on oxycodone 5 mg q 8 prn pain #23 tablets given at time of dischargep atient will need appointmen t with PCP for f/u discussed with nursing to schedule prior to discharge Amputated below knee 299 507196 Z89.519 As above. Health Concerns Section Related Observation LastModified by Organization Detai ls LastModified Time None Recorded Concern Status LastModified by Organization Details LastModified Time None Recorded Advance Directives Directive Y: Payers Insurance Date Sequence Insurance Name Policy Number Policy Matute Covered Member ID Matute Member ID Guarantor Name 03/27/2024 1 [employer] (MEDICARE REPLACEMENT/ ADVANTAGE - PPO) [id number] Zan Encinas [id number] Zan Encinas Notes Date Note Type Note [...] f/t/h occlusion of bypass now s/p R AIR FILLER-AT bypass w ePTFE w/ patch angioplasties (Ratna 12/01). A[facility]Cooper[facility]Da [facility] [address] [place] [address], [address], [place], [address], [facility] [employer] 02/19/2024 09:56:01 02/22/2024 text/html This is [...] f/t/h occlusion of bypass now s/p R AIR FILLER-AT bypass w ePTFE w/ patch angioplasties (Giles 12/01). [facility]oper[facility]Aaron [facility] [address] [facility], [address], [place], [address], [employer] 02/22/2024 11:16:10 02/25/2024 text/html This is a 63 yo man who is being seen for acute rounding visit Patient doing well todayPain controlled with oxycodone. Gabapentin increased last week at f/u vascular with IMprovement. Reported increased pain over the weekend with 1x dose oxycodone 10mg.Actively participating in therapyself-propelling around unit in w/cPMR consulted Patient seen sitting in room in bed in [facility]. He tells me for the [...] f/t/h occlusion of bypass now s/p R AIR FILLER-AT bypass w ePTFE w/ patch angioplasties (Giles 12/01). [facility] [address] [facility], [address], [place], [address], [employer] 02/25/2024 11:08:05 02/28/2024 text/html This is a 63 yo man who is being seen for acute rounding visit Patient had f/u vascular on 02/25recs to continue with daily dressing changes noted with small open area on medial aspectNo suede brusher or prosthesis yet. The site needs to be completely healed first. Can increase gabapentin 900mg TID and decrease oxycodone.f/u 03/11/24 Patient seen lying in bed with bread packer doing dressing change. He reports improvement in [...] f/t/h occlusion of bypass now s/p R AIR FILLER-AT bypass w ePTFE w/ patch angioplasties (Giles 12/01). [facility]Tremblay[facility]Da [facility] [address] [facility], [address], [place], [address], [employer] 02/28/2024 12:14:07 03/03/2024 text/html Patient is a [...] f/u in place Garrett Fletcher MD [address] [facility], [address], [place], [address], [employer] 03/03/2024 11:33:58
--- OUTSIDE RECORDS SUMMARY | 2025-01-06 14:39 | XMS_ITS | Encounter Summary ---
Author Organization [facility] Address [address] [place] [address] [place] [address] Phone Care Team Providers Care Land Measurer Name Role Phone Quinton Callahan MD Primary Care Provider +1- [phone] Encounter Details Date Type Department Care Team (Late st Contact Info) Description 11/28/2023 Procedure Pass [facility] [address] [place] [address] Social History Tobacco Use Types Packs/Day Years [...] on filedocumented in this encounter Care Teams Land Measurer Relationship Specialty Start Date End Date Quinton Callahan MD [address] [place] [address] [place] [address] PCP - General Medical Oncology 11/23/23 documented as of this encounter Additional Source Comments The information contained in this document represents components of the legal health record. It is not the complete legal health record.[facility]
--- OUTSIDE RECORDS SUMMARY | 2025-01-06 14:39 | XMS_ITS | Clinical Summary ---
Author Organization [facility] Address [address] [place] [address] Phone Care Team Providers Care Underground Truck Operator Name Role Phone Quinton Callahan MD Primary Care Provider +1- [phone] Allergies No known active allergies Medications oxyCODONE-aceta [...] on patient's age to complete this topic IPV VACCINES Aged Out No longer eligi ble based on patient's age to complete this topic MENINGOCOCCAL VACCINES (ACWY) Aged Out No longer eligible based on patient's age to complete this topic MENINGOCOCCAL VACCINES (B) Aged Out N o longer eligible based on patient's age to complete this topic Medical Devices Implanted Type Area Manager Economic Device Identifier Shelf Expiration Date Model / Serial / Lot Graft Vascular 6.0mmx60 70cm Propaten Heparin Carmeda Bioactive Surface Thin Wall Removable Ring Stretch - [id number] Implanted:Qty: 1 on 12/02/2023 by Percy Segundo MD at [facility] STANDARD Right: Vein [employer] [id number] 08/13/2026 [id number] / [id number] / Metal Clip Celd Left Groin 10/2023 Stent Right Femoral Artery Patch Pericardium 2cm 9cm Decellularized Bovine [employer] - [id number] Implanted:Qty: 1 on 12/02/2023 by Percy Segundo MD at [facility] Right: Vein [employer] [id number] 03/24/2025 [id number] / / [id number] Procedures Procedure Name Priority Date/Time Associated Diagnosis Comments BASIC METABOLIC PANEL (BMP) Routine 02/18/2024 8:01 AM EST Aftercare for amputation stump LIPID PANEL Routine 11/28/2023 1:21 AM EDT from Last 3 Months or Most Recently Relevant to Health Maintenance Results * (ABNORMAL) Basic metabolic panel (02/18/2024 8:01 AM EST) SODIUM 137 133 - 146 mmol/L [facility] CHLORIDE 102 96 - 108 mmol/L [facility] POTASSIUM 4.4 3.3 - 5.1 mmol/L [facility] CO2 25 21 - 35 mmol/L [facility] BUN 13 6 - 19 mg/dL [facility] CREATININE 0.70 0.5 - 1.5 mg/dL [facility] GLUCOSE 101(H) 70 - 99 mg/dL [facility] CALCIUM 9.7 8.4 - 10.3 mg/dL [facility] EGFR 102 >59 mL/min/1.7 3m2 [facility] Comment:Estimated glomerular filtration rate calculated using the CKD-EPI refit equation. ANION GAP 14 10 - 20 mmol/L [facility] Blood 02/18/2024 8:01 AM EST 02/18/2024 10:00 AM EST us Garrett Fletcher MD LAB BLOOD BKR ORDERABLES Final R esult [facility] [address] [place] [address] * Lipid panel (11/28/2023 1:21 AM EDT) CHOLESTEROL 125 <200 mg/dL [facility] TRIGLYCERIDES 60 35 - 150 mg/dL [facility] HDL 60 40 - 80 mg/dL [facility] CALCULATED LDL 53 50 - 129 mg/dL [facility] VLDL 12 <31 mg/dL [facility] CARDIAC RISK RATIO 2.1 0.0 - 4.0 [facility] Blood 11/28/2023 1:21 AM EDT 11/28/2023 1:35 AM EDT us Ayla Owens PA-C LAB BLOOD BKR ORDERABLES Final Result [facility] [address] [place] [address] from Last 3 Months or Most Recently Relevant to Health Maintenance Insurance [employer] PPO MEDICARE REPLACEMENT MEDICARE PART A & B [employer] PPO MEDICARE REPLACEMENT MEDICARE PART A & B [employer] PPO MEDICARE REPLACEMENT MEDICARE PART A & B [employer] PPO MEDICARE REPLACEMENT MEDICARE PART A & B [facility] MEDICARE REPLACEMENT MEDICARE PART A & B [facility] MEDICARE REPLACEMENT MEDICARE PART A & B Advance Directives For more information, please contact: [phone] (9AM - 5PM Swati/[facility], Sunday-Sunday) * Full Code (Latest Code Status on File) Date Activated Date Inactivated Comments 11/27/2023 4:16 PM Question Answer Comments Code Status Confirmed With: Patient Care Teams Underground Truck Operator Relationship Specialty Start Date End Date Quinton Callahan MD [address] [place] [address] [place] [address] PCP - General Medical Oncology 11/23/23 Additional Source Comments The information contained in this document represents components of the legal health record. It is not the complete legal health record.[facility]
--- OUTSIDE RECORDS SUMMARY | 2025-01-06 14:39 | XMS_ITS | Encounter Summary ---
Author Organization [facility] Address [address] [place] [address] [place] [address] Phone Care Team Providers Care Cna Pct Name Role Phone Quinton Callahan MD Primary Care Provider +1- [phone] Encounter Details Date Type Department Care Team (Late st Contact Info) Description 11/28/2023 Procedure Pass [facility] [address] [place] [address] Social History Tobacco Use Types Packs/Day Years [...] on filedocumented in this encounter Care Teams Cna Pct Relationship Specialty Start Date End Date Quinton Callahan MD [address] [place] [address] [place] [address] PCP - General Medical Oncology 11/23/23 documented as of this encounter Additional Source Comments The information contained in this document represents components of the legal health record. It is not the complete legal health record.[facility]
--- OUTSIDE RECORDS SUMMARY | 2025-01-06 14:39 | XMS_ITS | Patient Health Record ---
Author Organization [facility] Address [address] [place] [address] Care Team Providers Care Switchboard Manager Name Role Phone Quinton Callahan MD Primary Care Provider Quinton Mao Unavailable [phone] Reason For Referral No Information Medications Medication [...] Problem Screening for malignant neoplasm of colon (750964694) Encounter for screening for malignant neoplasm of colon (Z12.11) Active confirmed Problem Palmer's esophagus (742644648) Palmer's esophagus without dysplasia (K22.70) Active confirmed Problem Gastroesophageal reflux disease without esophagitis (192436508) Gastroesophageal reflux disease without esophagitis (K21.9) Active confirmed Plan Of Treatment Future Test Test Name Order Date UPPER GI ENDOSCOPY 03/19/2013 UPPER GI ENDOSCOPY 06/11/2019 COLONOSCOPY 06/11/2019 Next Appt Details Provider Name:Quinton Valel Campos , 02/04/2025 01:00:00 PM, [address] [place] [address], [address], [place], [address], Insurance Providers Payer Name Payer Address Payer Phone Subscriber Number Group Number Insured Name Patient Relationship to Insured Coverage Start Date Coverage End Date MEDICARE OF [place] [address] [place] [address] [id number] JUAN FRANCISCO HOWELL Self - patient is the insured Medical (General) History Medical History History ICD Code Colonoscopy in 12/2009 neg e xcept for a hyperplastic polyp, diverticulosis, and internal hemmorhoids GERD with a small area of Ba rrett's esophagus--EGD in 12/2009-small HH-bx neg for dysplasia Splenic vein thrombosis in 1999-- had previously been on Coumadin Denies MS,DM,CVA,renal disease EGD 04/2013 with small area o f Palmer's, no dysplasia nor esophagitis; small hiatal hernia COPD PVD with claudication as below Surgical History Surgery Date(Month/Year) 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 Knott 06/18/2019
--- OUTSIDE RECORDS SUMMARY | 2025-01-06 14:39 | XMS_ITS | Encounter Summary ---
Author Organization [facility] Address [address] [place] [address] [place] [address] Phone Care Team Providers Care Station Engineer Main Line Name Role Phone Quinton Callahan MD Primary Care Provider +1- [phone] Encounter Details Date Type Department Care Team (Late st Contact Info) Description 11/28/2023 Procedure Pass [facility] [address] [place] [address] Social History Tobacco Use Types Packs/Day Years [...] on filedocumented in this encounter Care Teams Station Engineer Main Line Relationship Specialty Start Date End Date Quinton Callahan MD [address] [place] [address] [place] [address] PCP - General Medical Oncology 11/23/23 documented as of this encounter Additional Source Comments The information contained in this document represents components of the legal health record. It is not the complete legal health record.[facility]
--- OUTSIDE RECORDS SUMMARY | 2025-01-06 14:39 | XMS_ITS | Encounter Summary ---
Author Organization [facility] Address [address] [place] [address] [place] [address] Phone Care Team Providers Care Waistline Joiner Overlock Name Role Phone Quinton Callahan MD Primary Care Provider +1- [phone] Encounter Details Date Type Department Care Team (Late st Contact Info) Description 11/28/2023 Procedure Pass [facility] [address] [place] [address] Social History Tobacco Use Types Packs/Day Years [...] on filedocumented in this encounter Care Teams Waistline Joiner Overlock Relationship Specialty Start Date End Date Quinton Callahan MD [address] [place] [address] [place] [address] PCP - General Medical Oncology 11/23/23 documented as of this encounter Additional Source Comments The information contained in this document represents components of the legal health record. It is not the complete legal health record.[facility]
== END 2025-01-06 13:55 | disposition home or self-care (01) ==
LOC: HO.HVS 12:55
PROVIDERS: PCP Internal Medicine Medical Oncology; Visit Provider Surgery Vascular Surgery
DX: I73.9 Peripheral vascular disease, unspecified (principal)
CPT/HCPCS: 99024

== ENCOUNTER 2025-01-28 13:33 | Outpatient (AMB) | payer MEDICARE, SELFPAY ==
--- NOTE | 2025-01-28 13:36 | A.OFFVIS_ITS ---
Vital Signs 01/28/25 13:41 Height 6 ft BMI Reason not done Patient refused/unable BP 140/62 H Blood Pressure Location Lt brachial Position Sitting Pulse 62 Pulse Source Pulse Oximeter Intake Visit Reasons: Follow up Intake Note: f/up Head Of Operation And Logistics Required: No Accompanied by: Self / Same As Patient Allergies No Known Allergies Allergy (Verified 01/06/25 13:06) Medication List - Last Reconciled 01/28/25 by Khalif Ferrer MD acetaminophen (Tylenol Extra Strength) 1,000 mg PO Q6H PRN albuterol sulfate 90 mcg/actuation 2 puffs inhalation Q4H PRN aspirin (Luis Low Dose Aspirin) 81 mg PO DAILY atorvastatin 10 mg PO DAILY doxycycline hyclate 100 mg PO BID 30 days gabapentin 600 mg PO BID levofloxacin 500 mg PO DAILY metoprolol succinate ER 25 mg PO DAILY Held on 10/23/24. Instructions: Resume on 11/10/24. Your metoprolol was held because your heart rate was low while in the hospital. Heart rate and blood pressure were well-controlled throughout hospital stay. Continue to hold metoprolol at this time until you follow up with your PCP to consider whether stopping medication or resuming it at a later date. [id number] 107-01-760-300 mcg (Centrum Silver Men) 1 tab PO DAILY pantoprazole 80 mg PO DAILY@0630 tamsulosin 0.8 mg PO DAILY HPI Comments Details: 64 year gentleman status post fem-pop bypass as well as right below-knee amputation. He has a wound on the right stump site which he is saying he gets discharged from from time to time. He had Holter monitoring done which did not show any atrial fibrillation. He is taking baby aspirin at this point. Denying any chest discomfort shortness of breath. He continues to smoke 1 pack per day and we discussed about smoking cessation. Denying any other active complaints currently. [facility] Medical History Peripheral arterial disease Below-knee amputation of right lower extremity Osteomyelitis Krish angina Left bundle branch block Bakers cyst Nicotine dependence, cigarettes, uncomplicated Arthritis BPH (benign prostatic hyperplasia) Elevated cholesterol Complex regional pain syndrome i of right lower limb S/P angiogram of extremity (07/18/23) Atrial fibrillation History of Palmer's esophagus Splenic vein thrombosis History of femoral angiogram GERD (gastroesophageal reflux disease) COPD (chronic obstructive pulmonary disease) Surgical History Hx of BKA History of tonsillectomy Hx of oral surgery Hx of tracheostomy History of esophagogastroduodenoscopy (EGD) H/O colonoscopy Social History Household Members: Family and Children Household Members Other:: Son, son girlfriend, grandbaby Housing: Apartment Housing Other:: 3 stairs to climb Are you a primary ambulatory care coordinator to a significant other at home: No Do you presently have visiting nurse or other home services: Yes Comment: Dr Knott made aware of absent pulse and sensation in right foot Patient Tobacco Use Status: Current everyday Tobacco user Tobacco use type: Cigarette Cigarette Packs Per Day: 1 Cigarettes Per Day: 20.0 Years Smoked: 50 e-Cigarette/Vaping Use: Never Used Second Hand Smoke Exposure: No Substance Use Type: Marijuana Advance Directives Date on File: 01/17/24 service: Yes Review of Systems Const Denies chills, Denies fatigue, Denies fever(s), Denies frequent falls, Reports weakness, Denies weight gain and Denies weight loss ENT Denies dizziness Card Denies chest pain, Denies leg edema, Denies lightheadedness, Denies palpitations, Denies dyspnea and Denies dyspnea on exertion Resp Denies cough, Denies dyspnea and Denies dyspnea on exertion GI Denies hematochezia Musc Denies abnormal gait, Reports muscle weakness, Denies numbness, Denies radiating pain into limb and Denies tingling Neuro Denies abnormal gait, Denies dizziness, Denies frequent falls, Denies numbness, Denies tingling and Reports weakness Endo Denies fatigue and Denies palpitations Physical Exam Vital Signs: Last Vital Signs Pulse 62 01/28/25 13:41 BP 140/62 H 01/28/25 13:41 GENERAL APPEARANCE: in no acute distress, pleasant. NECK: no carotid bruit, no jugular venous distention. SKIN: no suspicious lesions, warm and dry. HEART: no murmurs, regular rate and rhythm. LUNGS: clear to auscultation bilaterally. ABDOMEN: soft, nontender. EXTREMITIES: Right lower extremity amputation. PERIPHERAL PULSES: equal. NEUROLOGIC: No gross deficits, AAO X 3 Assessment & Plan Assessment & Plan (1) Left bundle branch block: Code(s): I44.7 - Left bundle-branch block, unspecified Category: Medical (2) Peripheral arterial disease: Code(s): I73.9 - Peripheral vascular disease, unspecified Category: Medical Plan Pleasant 64 year gentleman who is here for follow-up. He was seen for p erioperative cardiovascular risk assessment before fem-pop bypass. He also had right lower extremity amputation with wound infection/cellulitis. He has done reasonably okay since then. Continues to have some discharge off and on and has been on antibiotics. He is on baby aspirin. I have advised him to start taking Xarelto 2.5 mg twice a day. I am sending a script for him. Denying any chest discomfort or any other complaints currently. We discussed about smoking cessation. He will see us back in few months. Medications: New rivaroxaban 2.5 mg PO BID 60 tabs 4RF I73.9 - Peripheral vascular disease, unspecified Coding Level of Care Code Est Pt Level 4 (43342) Diagnoses Left bundle branch block I44.7 Peripheral arterial disease I73.9
[2025-01-28 13:41] VITALS: BP 140/62; PULSE 62
--- OUTSIDE RECORDS SUMMARY | 2025-01-28 16:07 | XMS_ITS | Encounter Summary ---
Author Organization [facility] Address [address] [place] [address] [place] [address] Phone Care Team Providers Care Field Marketer Name Role Phone Quinton Callahan MD Primary Care Provider +1- [phone] Encounter Details Date Type Department Care Team (Late st Contact Info) Description 12/08/2023 Procedure Pass [facility] EKG [address] [place] [address] Social History Tobacco Use Types Packs/Day Years [...] filedocumented in this encounter Care Teams Field Marketer Relationship Specialty Start Date End Date Quinton Callahan MD [address] [place] [address] [place] [address] PCP - General Medical Oncology 11/23/23 documented as of this encounter Additional Source Comments The information contained in this document represents components of the legal health record. It is not the complete legal health record.[facility]
--- OUTSIDE RECORDS SUMMARY | 2025-01-28 16:07 | XMS_ITS | Encounter Summary ---
Author Organization [facility] Address [address] [place] [address] [place] [address] Phone Care Team Providers Care Resource Development Manager Name Role Phone Quinton Callahan MD Primary Care Provider +1- [phone] Encounter Details Date Type Department Care Team (Late st Contact Info) Description 11/28/2023 Procedure Pass [facility] [address] [place] [address] Social History Tobacco Use Types Packs/Day Years [...] on filedocumented in this encounter Care Teams Resource Development Manager Relationship Specialty Start Date End Date Quinton Callahan MD [address] [place] [address] [place] [address] PCP - General Medical Oncology 11/23/23 documented as of this encounter Additional Source Comments The information contained in this document represents components of the legal health record. It is not the complete legal health record.[facility]
--- OUTSIDE RECORDS SUMMARY | 2025-01-28 16:07 | XMS_ITS | Encounter Summary ---
Author Organization [facility] Address [address] [place] [address] [place] [address] Phone Care Team Providers Care Supervisor Malted Milk Name Role Phone Quinton Callahan MD Primary Care Provider +1- [phone] Encounter Details Date Type Department Care Team (Late st Contact Info) Description 11/28/2023 Procedure Pass [facility] [address] [place] [address] Social History Tobacco Use Types Packs/Day Years [...] filedocumented in this encounter Care Teams Supervisor Malted Milk Relationship Specialty Start Date End Date Quinton Callahan MD [address] [place] [address] [place] [address] PCP - General Medical Oncology 11/23/23 documented as of this encounter Additional Source Comments The information contained in this document represents components of the legal health record. It is not the complete legal health record.[facility]
--- OUTSIDE RECORDS SUMMARY | 2025-01-28 16:07 | XMS_ITS | Encounter Summary ---
Author Organization [facility] Address [address] [place] [address] [place] [address] Phone Care Team Providers Care Delivery Consultant Name Role Phone Quinton Callahan MD Primary Care Provider +1- [phone] Encounter Details Date Type Department Care Team (Late st Contact Info) Description 11/28/2023 Procedure Pass [facility] [address] [place] [address] Social History Tobacco Use Types Packs/Day Years [...] on filedocumented in this encounter Care Teams Delivery Consultant Relationship Specialty Start Date End Date Quinton Callahan MD [address] [place] [address] [place] [address] PCP - General Medical Oncology 11/23/23 documented as of this encounter Additional Source Comments The information contained in this document represents components of the legal health record. It is not the complete legal health record.[facility]
--- OUTSIDE RECORDS SUMMARY | 2025-01-28 16:07 | XMS_ITS | Clinical Summary ---
Author Organization [facility] Address [address] [place] [address] Phone Care Team Providers Care Music Copyist Name Role Phone Quinton Callahan MD Primary Care Provider +1- [phone] Allergies No known active allergies Medications oxyCODONE-aceta [...] this topic Medical Devices Implanted Type Area Jig Bore Tool Maker Device Identifier Shelf Expiration Date Model / Serial / Lot Graft Vascular 6.0mmx60 70cm Propaten Heparin Carmeda Bioactive Surface Thin Wall Removable Ring Stretch - [id number] Implanted:Qty: 1 on 12/02/2023 by Percy Segundo MD at [facility] STANDARD Right: Vein [employer] [id number] 08/13/2026 [id number] / [id number] / Metal Clip Celd Left Groin 10/2023 Stent Right Femoral Artery Patch Pericardium 2cm 9cm Decellularized Bovine [employer] - [id number] Implanted:Qty: 1 on 12/02/2023 by Percy Segundo MD at [facility] Right: Vein [employer] [id number] 03/24/2025 [id number] / / [id number] Procedures Procedure Name Priority Date/Time Associated Diagnosis Comments BASIC METABOLIC PANEL (BMP) Routine 02/18/2024 8:01 AM EST Aftercare for amputation stump LIPID PANEL Routine 11/28/2023 1:21 AM EDT from Last 3 Months or Most Recently Relevant to Health Maintenance Results * (ABNORMAL) Basic metabolic panel (02/18/2024 8:01 AM EST) SODIUM 137 133 - 146 mmol/L [facility] CHLORIDE 102 96 - 108 mmol/L [facility] POTASSIUM 4.4 3.3 - 5.1 mmol/L [facility] CO2 25 21 - 35 mmol/L [facility] BUN 13 6 - 19 mg/dL [facility] CREATININE 0.70 0.5 - 1.5 mg/dL [facility] GLUCOSE 101(H) 70 - 99 mg/dL [facility] CALCIUM 9.7 8.4 - 10.3 mg/dL [facility] EGFR 102 >59 mL/min/1.7 3m2 [facility] Comment:Estimated glomerular filtration rate calculated using the CKD-EPI refit equation. ANION GAP 14 10 - 20 mmol/L [facility] Blood 02/18/2024 8:01 AM EST 02/18/2024 10:00 AM EST us Garrett Fletcher MD LAB BLOOD BKR ORDERABLES Final R esult [facility] [address] [place] [address] * Lipid panel (11/28/2023 1:21 AM EDT) CHOLESTEROL 125 <200 mg/dL [facility] TRIGLYCERIDES 60 35 - 150 mg/dL [facility] HDL 60 40 - 80 mg/dL [facility] CALCULATED LDL 53 50 - 129 mg/dL [facility] VLDL 12 <31 mg/dL [facility] CARDIAC RISK RATIO 2.1 0.0 - 4.0 [facility] Blood 11/28/2023 1:21 AM EDT 11/28/2023 1:35 AM EDT us Ayla Owens PA-C LAB BLOOD BKR ORDERABLES Final Result Performing Organization Address City/State/[facility] Co de Phone Number [facility] [address] [place] [address] from Last 3 Months or Most Recently Relevant to Health Maintenance Insurance [employer] PPO MEDICARE REPLACEMENT MEDICARE PART A & B [facility] MEDICARE REPLACEMENT MEDICARE PART A & B [employer] O MEDICARE REPLACEMENT MEDICARE PART A & B [employer] O MEDICARE REPLACEMENT MEDICARE PART A & B [facility] MEDICARE PART A & B Member Subscriber Plan / Payer (Ef fective 2023-Present) Name:Zan Encinas Member ID:[id number] Relation to Subscriber:Self Name:Zan Encinas Subscriber ID:[id number] Payer ID:[id number] Group ID:Not on file Type:Medicare Address: [employer] [address] [address] [facility] ([place], [place]) MEDICARE REPLACEMENT MEDICARE PART A & B Advance Directives For more information, please contact: [phone] (9AM - 5PM [facility]ati/[facility], Sunday-Sunday) * Full Code (Latest Code Status on File) Date Activated Date Inactivated Comments 11/27/2023 4:16 PM Question Answer Comments Code Status Confirmed With: Patient Care Teams Music Copyist Relationship Specialty Start Date End Date Quinton Callahan MD [address] [place] [address] [place] [address] PCP - General Medical Oncology 11/23/23 Additional Source Comments The information contained in this document represents components of the legal health record. It is not the complete legal health record.[facility]
--- OUTSIDE RECORDS SUMMARY | 2025-01-28 16:07 | XMS_ITS | Encounter Summary ---
Author Organization [facility] Address [address] [place] [address] [place] [address] Phone Care Team Providers Care Courtesy Bus Driver Name Role Phone Quinton Callahan MD Primary Care Provider +1- [phone] Encounter Details Date Type Department Care Team (Late st Contact Info) Description 11/28/2023 Procedure Pass [facility] [address] [place] [address] Social History Tobacco Use Types Packs/Day Years [...] on filedocumented in this encounter Care Teams Courtesy Bus Driver Relationship Specialty Start Date End Date Quinton Callahan MD [address] [place] [address] [place] [address] PCP - General Medical Oncology 11/23/23 documented as of this encounter Additional Source Comments The information contained in this document represents components of the legal health record. It is not the complete legal health record.[facility]
--- OUTSIDE RECORDS SUMMARY | 2025-01-28 16:07 | XMS_ITS | Encounter Summary ---
Author Organization [facility] Address [address] [place] [address] [place] [address] Phone Care Team Providers Care Sampler Tester Name Role Phone Quinton Callahan MD Primary Care Provider +1- [phone] Encounter Details Date Type Department Care Team (Late st Contact Info) Description 12/02/[address] [facility] Periop [address] [place] [address] Social History Tobacco Use Types Packs/Day Years [...] on filedocumented in this encounter Care Teams Sampler Tester Relationship Specialty Start Date End Date Quinton Callahan MD [address] [place] [address] [place] [address] PCP - General Medical Oncology 11/23/23 documented as of this encounter Additional Source Comments The information contained in this document represents components of the legal health record. It is not the complete legal health record.[facility]
== END 2025-01-28 14:01 | disposition home or self-care (01) ==
LOC: HO.HCS 13:33
PROVIDERS: PCP Internal Medicine Medical Oncology; Visit Provider Internal Medicine Cardiovascular Disease
DX: I44.7 Left bundle-branch block, unspecified (principal); I73.9 Peripheral vascular disease, unspecified
CPT/HCPCS: 99214

== ENCOUNTER → 2025-01-28 13:33 | Outpatient (BNVA) | payer MEDICARE, SELFPAY | PROVIDERS: PCP Internal Medicine Medical Oncology; Visit Provider Internal Medicine Cardiovascular Disease | DX: I44.7 Left bundle-branch block, unspecified (principal); I73.9 Peripheral vascular disease, unspecified | CPT/HCPCS: 99212 ==

== ENCOUNTER 2025-02-03 14:06 | Outpatient (AMB) | payer MEDICARE, SELFPAY ==
--- NOTE | 2025-02-03 14:10 | A.OFFVIS_ITS ---
Vital Signs 02/03/25 14:12 Height 6 ft Intake Visit Reasons: 2 week Stump check Intake Note: 2 wk stump check, VNA twice per week. Paint Technician Required: No Accompanied by: Son Allergies No Known Allergies Allergy (Verified 02/03/25 14:18) HPI HPI 2 week Stump check: Details: Very pleasant 64-year-old gentleman presents for follow-up regarding his right BKA. Appears to be doing relatively well. He continues to be on doxycycline and the stump wound appears to be proximally the same. He denies any significant pain. Now for routine follow-up. [facility] Medical History Peripheral arterial disease Below-knee amputation of right lower extremity Osteomyelitis Krish angina Left bundle branch block Bakers cyst Nicotine dependence, cigarettes, uncomplicated Arthritis BPH (benign prostatic hyperplasia) Elevated cholesterol Complex regional pain syndrome i of right lower limb S/P angiogram of extremity (07/18/23) Atrial fibrillation History of Palmer's esophagus Splenic vein thrombosis History of femoral angiogram GERD (gastroesophageal reflux disease) COPD (chronic obstructive pulmonary disease) Surgical History Hx of BKA History of tonsillectomy Hx of oral surgery Hx of tracheostomy History of esophagogastroduodenoscopy (EGD) H/O colonoscopy Social History Household Members: Family and Children Household Members Other:: Son, son girlfriend, grandbaby Housing: Apartment Housing Other:: 3 stairs to climb Are you a primary animal care technician to a significant other at home: No Do you presently have visiting nurse or other home services: Yes Comment: Dr Knott made aware of absent pulse and sensation in right foot Patient Tobacco Use Status: Current everyday Tobacco user Tobacco use type: Cigarette Cigarette Packs Per Day: 1 Cigarettes Per Day: 20.0 Years Smoked: 50 e-Cigarette/Vaping Use: Never Used Second Hand Smoke Exposure: No Substance Use Type: Marijuana Advance Directives Date on File: 01/17/24 service: Yes Review of Systems Const All systems reviewed & are unremarkable except as noted in HPI and below Reports no additional complaints ENT Reports Normal hearing present Card Denies chest pain, Denies chest pain at rest, Denies chest pain with activity and Denies pedal edema Resp Denies cough GI Denies abdominal pain Musc Denies abnormal gait, Denies muscle cramps and Denies radiating pain into limb Skin/Breast Denies skin ulcer and Denies wounds Neuro Reports Normal hearing present and Denies abnormal gait Psych Reports no additional complaints Physical Exam Const General: cooperative, healthy appearing and comfortable Orientation/consciousness: oriented to person, oriented to place and oriented to time HEENT Head: Yes normal to inspection Neck Neck: Yes normal visual inspection Carotids: no bruits Chest Chest palpation & inspection: normal inspection of the chest Resp Effort & Inspection: normal respiratory effort and able to speak in complete sentences Auscultation: clear to auscultation bilaterally, no crackles, no rales, no rhonchi and no wheezes Cardio Rate: regular rate Rhythm: regular rhythm Heart sounds: S1 normal heart sound present and S2 normal heart sound present Bruits: no carotid bruits Peripheral pulses: Peripheral pulses 2+ throughout GI Inspection: Yes normal to inspection Skin Other: Right BKA stump wound overall measures 2.5 x 1 x 0.1 cm. Some fibrinous slough overlying. Wounds: no wounds Hair: normal Neuro General: oriented to person, oriented to place and oriented to time Cranial nerves: Yes CN's II-XII intact bilaterally and Yes Normal hearing present Cognition (Neuro): normal cognition Motor exam (neuro): 5/5 motor strength present throughout Extrem Other: venous exam: No significant superficial varicosities or spider telangiectasias, minimal edema General: No clubbing, No cyanosis and No edema Psych Appearance: grossly normal Mental Status: mental status grossly normal Speech and movement: Normal speech and movement present Assessment & Plan Assessment & Plan (1) Complication of below knee amputation stump: Code(s): T87.9 - Unspecified complications of amputation stump Category: Medical Plan: In short patient has a nonhealing right BKA stump. He will require right stump debridement with skin substitute placement. Risks benefits complications of the procedure were discussed in detail with the patient he understood and consented. We will schedule him as soon as possible. Coding Level of Care Code Est Pt Level 4 (53060) Diagnoses Complication of below knee amputation stump T87.9
== END 2025-02-03 14:56 | disposition home or self-care (01) ==
LOC: HO.HVS 14:07
PROVIDERS: PCP Internal Medicine Medical Oncology; Visit Provider Surgery Vascular Surgery
DX: T87.9 Unspecified complications of amputation stump (principal)
CPT/HCPCS: 99214

== ENCOUNTER → 2025-02-03 14:06 | Outpatient (BNVA) | payer MEDICARE, SELFPAY | PROVIDERS: PCP Internal Medicine Medical Oncology; Visit Provider Surgery Vascular Surgery | DX: T87.9 Unspecified complications of amputation stump (principal); Z89.511 Acquired absence of right leg below knee | CPT/HCPCS: 99212 ==

== ENCOUNTER 2025-02-09 13:10 | Day surgery (SDC) | payer MEDICARE, SELFPAY ==
--- OUTSIDE RECORDS SUMMARY | 2023-08-14 05:30 | XMS_ITS ---
Author Organization [facility] Address [address] [place] [address] Care Team Providers Care Employment Agency Manager Name Role Phone Quinton Callahan MD Primary Care Provider Unavailab Quinton Alvarez [phone] REASON FOR VISIT Patient presents today for EGD, NUGENT'S ESOPHAGUS Encounters Encounter Location Date Provider Diagnosis [facility] [address] [place] [address] 08/14/2023 Quinton Campos Plan Of Treatment Next Appt Details Provider Name:Quinton Campos , 02/04/2025 01:00:00 PM, [address], [address], [place], [address], Progress Notes * SHAUNA HERNANDEZHDOB:1960 (64 yo M)Acc No.[id number]:08/14/2023 Progress Notes Patient: JUAN FRANCISCO TONG Provider: Angeles Campos MD :1960 A ge:63 Y S ex:Male Date:08/14/2023 Address:[address] [place] [address] [id number] Pcp:Quinton Callahan MD Subjective: * Chief Complaints: * P atient presents today for EGD, NUGENT'S ESOPHAGUS Billing Information: * Procedure Codes: * The named appointment provid er may or may not be the originator of this progress note, and it is not deemed complete until electronically signed by the appointment provider. Sign off status: Pending * Provider: Angeles Campos MD Date: 0 08/14/2023 Generated for Tristen bustamante/Jai/eTransmitting on: 1 04/06/2024 09:02 PM EST
--- OUTSIDE RECORDS SUMMARY | 2024-09-30 09:00 | XMS_ITS ---
Author Organization Quinton Callahan III, MD Address [address] [place] [address] [place] [address] Care Team Providers Care Director Of Women'S Services Name Role Phone Dr. Quinton Callahan III Primary Care Provider [phone] Allergies Allergen (clinical drug ingredient) Drug/Non Drug Allergy documented on EMR Reaction Allergy Type Onset Date Status No Known Drug Allergy Unknown Drug Allergy Active Reason For Referral Reason left renal hematoma evaluate and treatment Diagnosis 1 Hematoma of left kid luz, initial encounter (S37.012A) Referral Organization Quinton Callahan III, MD Referring Provider First Name Quinton Referring Provider Last Name London Referring Provider Speciality Internal M edicine Referred Provider Chloe Flores Referred Provider Specialty Urology General Notes Jolie Gonzalez [facility] 09/30 03:24:56 PM >I called Dr Flores office made patient an appt for 12/03/2024 at 2:45pm pt is established with Dr Flores so no records were sent . [facility] appt information was mailed to patient Referral Priority Routine Referral Appointment Date 12/03/2024 Reason evaluate and treatme nt Barretts esophagus barretts Esophagus Due for EGD Diagnosis 1 Palmer's esophagus determined by endoscopy (K22.70) Referral Organization Quinton Callahan III, MD Referring Provider First Name Quinton Referring Provider Last Name London Referring Provider Speciality Internal M edicine Referred Provider Quinton Campos Referred Provider Specialty Gastroentero logy General Notes Jolie Gonzalez [facility] 09/30 03:23:14 PM >Called Dr Campos office pt missed his appt in July due to being in the hospital . Per Dr Callahan rescheduled his appt they scheduled the appt for 02/04/2025 at 1pm patient mailed this appt information . pt has been seen there before so no records needed to be sent Referral Priority Routine Referral Appointment Date 02/04/2025 REASON FOR VISIT Recurrent osteomyelitis, Drainage from stump of right below the knee amputation, Benign prostatic hypertrophy, COPD, Palmer's esophagus, Umbilical hernia, Tobacco dependence Medications Medication SIG (Take, Route, Frequency, Duration) Notes Start Date End Date Status Gabapentin 400 MG 1 capsule Orally fou r times a day 10/31/2023 Active Tamsulosin HCl 0.4 MG 2 capsule Orally O nce a day Active Pantoprazole Sodium 40 MG Take 2 tablets by mouth once daily Active Cephalexin 500 MG TAKE 1 CAPSULE BY MO [facility] TWICE DAILY Oral Active Albuterol Sulfate HFA 108 (90 Base) MCG/ACT INHALE 2 PUFFS BY MOUTH EVERY 4 TO 6 HOURS NEEDED FOR SHORTNESS OF BREATH OR WHEEZING Inhalation Active Metoprolol Succinate ER 25 MG 1 tablet Orally Once a day Active Atorvastatin Calcium 10 MG Take 1 tablet by mouth once daily Active ASA 1 tab Oral Active Breo Ellipta [...] -moderate cigarette smoker (10-19/day) Vital Signs Temperature 98.3 degrees Fahrenheit 10/01/19 25 Blood pressure systolic 132 mm Hg 10/01/19 25 Blood pressure diastolic 81 mm Hg 025 Heart Rate 42 /min 09/30/2024 Height 73 in 09/30/2024 Weight 188 lbs 09/30/2024 BMI 24.8 kg/m2 09/30/2024 Encounters Encounter Location Date Provider Diagnosis Quinton Callahan III, MD [address] [place] [address] [address], [place] [id number] 09/30/2024 Quinton Callahan Chronic osteomyeliti s of right tibia with draining sinus M86.461 ; Overweight E66.3 ; Umbilical hernia without obstruction and without gangrene K42.9 ; Peripheral arterial disease I73.9 ; Chronic obstructive pulmonary disease, unspecified COPD type J44.9 ; Splenic vein thrombosis I82.890 ; Palmer's esophagus determined by endoscopy K22.70 and Tobacco dependence F17.200 Assessments Encounter Date Diagnosis (ICD Code) Assessment Notes Treat ment Notes Treatment Clinical Notes 09/30/2024 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 He is currently on an antibiotic. 09/30/2024 Overweight (ICD-10 - E66.3) His body mass index is 29. We discussed diet and nutrition. I recommended aggressive weight loss and sodium restriction. 09/30/2024 Umbilical hernia without obstruction and without gangrene (ICD-10 - K42.9) This is asymptomatic and requires no treatment at this time. 09/30/2024 Peripheral arterial disease (ICD-10 - I73.9) He is seeing the vascular surgeon eevery 2 weeks. 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 The plan is to fit him for a prosthesis. He denies any ulcers or claudication in the left leg. 09/30/2024 Chronic obstructive pulmonary disease, unspecified COPD type (ICD-10 - J44.9) He has resumed smoking 5 cigarettes per day. He was counseled about this and made aware of the smoking cessation programs in the area. 09/30/2024 Splenic vein thrombosis (ICD-10 - I82.890) There have been no further signs of thromboembolism. 09/30/2024 Palmer's esophagus determined by endoscopy (ICD-10 - K22.70) He is due for an endoscopy and was referred back to his nuclear equipment design engineer, Dr. Quinton Campos. 09/30/2024 Tobacco dependence (ICD-10 - F17.200) I have counseled him about smoking cessation and offered to refer him to smoking cessation programs in the community. He said he would consider this and try to cut down. Plan Of Treatment Medication Medication Name Sig Start Date Stop Date Notes Gabapentin 400 MG 1 capsule Orally fou r times a day 10/31/2023 Tamsulosin HCl 0.4 MG 2 capsule Orally Once a day Pantoprazole Sodium 40 MG Take 2 tablets by mouth once daily Cephalexin 500 MG TAKE 1 CAPSULE BY [facility] TWICE DAILY Oral Albuterol Sulfate HFA 108 (9 0 Base) MCG/ACT INHALE 2 PUFFS BY MOUTH EVERY 4 TO 6 HOURS NEEDED FOR SHORTNESS OF BREATH OR WHEEZING Inhalation Metoprolol Succinate ER 25 MG 1 tablet Orally Once a day Atorvastatin Calcium 10 MG Take 1 tablet by mouth once daily ASA 1 tab Oral Breo Ellipta 200-25 MCG/ACT INHALE 1 PUF F BY MOUTH ONCE DAILY Inhalation Referrals Referral Date Details 09/30/2024 09/30/2024, left hubert al hematoma evaluate and treatment, Chloe Flores 09/30/2024 09/30/2024, evaluate and treatment Barretts esophagus barretts Esophagus Due for EGD, Quinton Campos Next Appt Details Follow Up: early october, Reason: OV no tests Provider Name:Quinton Callahan , 02/05/2025 10:30:00 AM, [address] [place] [address] [address], [place], [phone], Provider Name:Quinton Callahan , 03/24/2025 02:15:00 PM, [address] [place] [address] [address], [place], [phone], Provider Name:Quinton Callahan , 12/08/2025 02:30:00 PM, [address] [place] [address] [address], [place], [phone], Progress Notes * Ana ENCINAShDOB:1960 (64 yo M)Acc No.[id number]:09/30/2024 Progress Notes Patient: Zan TONG Provider: Angeles Callahan MD :1960 A ge:64 Y S ex:Male Date:09/30/2024 Address:[address] [place] [address], [address] [place] [phone] Subjective: * Chief Complaints: * R ecurrent osteomyelitisDrainage from stump of right below the knee amputationBenign prostatic hypertrophyCOPDBarrett's esophagusUmbilical herniaTobacco dependence * HPI: C OVID-19 Screening: He returns for medical management. Sanjana vallejo has developed a more copious discharge of purulent fluid from the 1 inch opening in the suture line of the right below the knee amputation. It is draining continuously. He is seeing his vascular surgeon who put him on cephalexin and says he may need new surgery to clean up the infection in the bone. The pain in the stump is worse. He is rising from sleep 3 times a night to urinate. His breathing is comfortable and his COPD is in remission. He is due for an upper endoscopy for his Palmer's esophagus and was referred back to his nuclear equipment design engineer today. He umbilical hernia is not symptomatic.? He continues to smoke 17 cigarettes a day and is reducing this number. He had a cyst removed from his back by the sushi chef. Questions H ave you had any new onset fever, chills, cough, congestion, sore throat, shortness of breath, muscle aches? N o * ROS: G eneral/Constitutional: pain R ight leg stump. C hills d enies. F atigue a dmits. F ever d enies. E [...] have been noted. G enitourinary: Frequent urination d enies. M usculoskeletal: Muscle aches d enies. P ainful joints d enies. S ciatica d enies. W eakness t hat is generalized. S kin: Itching d enies. R husam d enies. S kin lesion(s)?denies. N eurologic: Difficulty speaking d enies. D izziness d enies.?Headache d enies. L ow back pain d enies. P sychiatric: Depressed mood w hich is mild. * Medical History: * Surgical History: t onsillectomy age 6 tracheotomy due to Krish's angina after dental work 1985upper endoscopy and colonoscopy, [facility], Dr. Quinton Campos 2009upper endoscopy, [facility], Dr. Quinton Campos, Palmer's esophagus 2014arteriogram right lower extremity 05/2019Right lotjt-xva-goje amputation 02-04-2024 * Hospitalization/Major Diagno stic Procedure: D enies Past Hospitalization * Family History: F ather: 73 yrs, Diabetes mellitus, coronary artery disease, myocardial infarction, coma with rhabdomyolysis, diagnosed with DM, CVD. M other: alive 78 yrs, Several skin cancers, healthy and well, adult-onset diabetes, hypertension, diagnosed with DM, HTN, Cancer. S iblings: . P aternal Grand Father: , diagnosed with Cancer. P aternal Grand Mother: , diagnosed with Cancer. paternal Grandfather disease Dx with Lung CA. Paternal grandmother disease Dx with pancreatic CA. He has 6 healthy children and 11 healthy grandchildren. One of his siblings has Nkecqsm-Aixap-Lfhsc disease. 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 He was born in [place], [place]. He came to [place] in 1984. He is with 6 children. He has 11 grandchildren. He is a of [employer]. He trained at [employer] and served in [employer]. * Medications: T akingMetoprolol Succinate ER 25 [...] by mouth once daily Cephalexin 500 MG Capsule TAKE 1 CAPSULE BY MOUTH TWICE DAILY Oral Medication List reviewed and reconciled with the patientTaking Metoprolol Succinate ER 25 MG Tablet Extended [...] 2 tablets by mouth once daily Taking Cephalexin 500 MG Capsule TAKE 1 CAPSULE BY MOUTH TWICE DAILY Oral Medication List reviewed and reconciled with the patient * Allergies: N o Known Drug Allergyno[Allergies Verified] Objective: * Vitals: H t: 73, Wt:188, BMI:24.8, BP:132/81, HR:42, Temp:98.3, Ht-cm: 185.42, Wt-k.28. * P ast Orders: Lab:Complete Blood Count Aut o Diff * [...] X10*3/uL) 0.000 (Ref Range: 0.0-0.012 X10*3/uL) * Lab:Creatinine * Collection Date 06/30/2024 05/29/2024 05/28/2024 Collection Time 11:45 AM 05:09 AM 06:15 AM Order Date 06/30/2024 05/29/2024 05/28/2024 Creatinine 1.10 (Ref Range: 0.5-1.4 mg/dL) 0.79 (Ref Range: 0.5-1.4 mg/dL) 0.81 (Ref Range: 0.5-1.4 mg/dL) Creatinine Clr Calc Pharmacy NR 100.9 98.4 Estimated Glomerular Filt Rate > 60 > 60 > 60 * Examination: G eneral Examination: GENERAL APPEARANCE: p leasant, well nourished, well developed, in no acute distress, calm and relaxed: man. HEAD: a traumatic, normocephalic. EYES: e [...] normal, no s3, or vascular bruits. LUNGS: : diminished breath sounds throughout: no wheezes, rales, rhonchi. BREASTS: no masses palpable bilaterally. ABDOMEN: b owel sounds normal, no ascites, no organomegaly, no mass. RECTAL EXAM: n ot examined. MUSCULOSKELETAL: Right below the knee amputation, Midportion has 1 inch opening draining purulent material. PERIPHERAL PULSES: n ormal. NEUROLOGIC: a lert and oriented, cranial nerves 2-12 grossly intact, deep tendon reflexes 2+ symmetrical, motor strength normal upper and lower extremities, sensory exam intact. PSYCH: a lert, oriented. Assessment: * Assessment: 1. C hronic osteomyelitis of right tibia with draining sinus - M86.461 (Primary) ?Notes :He has been to vascular surgery and he may need more surgery. He is currently on an antibiotic. 2 . O verweight - E66.3 N otes :His body mass index is 29. We discussed diet and nutrition. I recommended aggressive weight loss and sodium restriction. 3 . U mbilical hernia without obstruction and without gangrene - K42.9 ? N otes :This is asymptomatic and requires no treatment at this time. 4 . P eripheral arterial disease - I73.9 N otes :He is seeing the vascular surgeon eevery 2 weeks. 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 The plan is to fit him for a prosthesis. He denies any ulcers or claudication in the left leg. 5 . C hronic obstructive pulmonary disease, unspecified COPD type - J44.9 N otes :He has resumed smoking 5 cigarettes per day. He was counseled about this and made aware of the smoking cessation programs in the area. 6 . S plenic vein thrombosis - I82.890 N otes :There have been no further signs of thromboembolism. 7 . B arrett's esophagus determined by endoscopy - K22.70 N otes :He is due for an endoscopy and was referred back to his nuclear equipment design engineer, Dr. Quinton Campos. 8 . T obacco dependence - F17.200 N otes :I have counseled him about smoking cessation and offered to refer him to smoking cessation programs in the community. He said he would consider this and try to cut down. Plan: * Treatment: 2. B arrett's esophagus determined by endoscopy Referral To:Quinton Campos Gastroenterology Reason:evaluate and treatment Barretts esophagus barretts Esophagus Due for EGD 3. O thers Continue Metoprolol Succinate ER Tablet Extended Release 24 Hour, 25 MG, 1 tablet, Orally, Once a day; C ontinue Atorvastatin Calcium Tablet, 10 MG, Take 1 tablet by mouth once daily; C ontinue ASA, 1 tab, Oral; C ontinue Breo Ellipta Aerosol Powder Breath Activated, 200-25 MCG/ACT, INHALE 1 PUFF BY MOUTH ONCE DAILY, Inhalation; C ontinue Albuterol Sulfate HFA Aerosol Solution, 108 (90 Base) MCG/ACT, INHALE 2 PUFFS BY MOUTH EVERY 4 TO 6 HOURS NEEDED FOR SHORTNESS OF BREATH OR WHEEZING, Inhalation; C ontinue Gabapentin Capsule, 400 MG, 1 capsule, Orally, four times a day; C ontinue Tamsulosin HCl Capsule, 0.4 MG, 2 capsule, Orally, Once a day; C ontinue Pantoprazole Sodium Tablet Delayed Release, 40 MG, Take 2 tablets by mouth once daily. ? Referral To:Chloe Flores [facility] Reason:left renal hematoma evaluate and treatment * Procedure Codes: * Preventive Medicine: Counseling: S moking/Tobacco Use Patient counseled on the dangers of tobacco use and urged to quit. 0 09/30/2024 Patient Lifestyle Goals P atient wants to quit Treatment Goals C ut down by 1 cigarette a week, Set a quit date Barriers S ocial smoker, Stress Self-Management Plan M rashida a plan to cut down number of cigarettes over time and set a date to work towards quitting COPD Care Plan: P atient Lifestyle Goals B e able to be more active with friends and family, Reduce number of ED and hospitalizations, Relieve symptoms and improve quality of life. T reatment Goals Q uit Smoking. B arriers n o barriers. S elf-Managment Goals M rashida a plan for quitting smoking. * Follow Up: genevieve campoverde october (Reason: OV no tests) * Images: * Sign off status: Completed true * Provider: Angeles Callahan MD Date: 0 09/30/2024 Generated for Tristen bustamante/Jai/eTransmitting on: 1 04/06/2024 09:05 PM EST History and Physical Notes * HPI (History of Present Illness) Category Sub-Category Detail Notes COVID-19 Screening Questions Have you had any new onset fever, chills, cough, congestion, sore throat, shortness of breath, muscle aches?: No Examination Category Sub-Category Detail Notes General Examination GENERAL APPEARANCE: pleasant , well nourished, well developed, in no acute distress, calm and relaxed: man HEAD: atraumatic, normocep halic EYES: eomi, perrla, anicte severiano, conjugate EARS: normal NOSE: septum intact NECK/THYROID: no jugular venous di stention, no carotid bruit, thyroid normal HEART: no clicks, gallops, murmurs, or rubs, regular rhythm, S1, S2 normal, no s3, or vascular bruits LUNGS: : diminished breath sounds throughout: no wheezes, rales, rhonchi ABDOMEN: bowel sounds normal, no ascites, no organomegaly, no mass NEUROLOGIC: alert and oriented, cranial nerves 2-12 grossly intact, deep tendon reflexes 2+ symmetrical, motor strength normal upper and lower extremities, sensory exam intact SKIN: no suspicious lesion s, anicteric PERIPHERAL PULSES: normal BREASTS: no masses palpable b ilaterally MUSCULOSKELETAL: Right below the knee amputation, Midportion has 1 inch opening draining purulent material LYMPH NODES: no enlarged lymph no pinky,spleen normal RECTAL EXAM: not examined PSYCH: alert, oriented ORAL CAVITY: normal, unremarkable Consultation Request Notes Referral Date Referring Provider Referred Provider Not es 09/30/2024 Quinton Callahan Amie left renal hem atoma evaluate and treatment 09/30/2024 Quinton Callahan Robert evaluate and treatment Barretts esophagus barretts Esophagus Due for EGD
--- OUTSIDE RECORDS SUMMARY | 2024-10-15 12:00 | XMS_ITS ---
Author Organization Quinton Callahan III, MD Address [address] [place] [address] Care Team Providers Care Auto Roller Name Role Phone Dr. Quinton Callahan III Primary Care Provider REASON FOR VISIT Annual Exam Social History Sex Assigned At : Social History Observation Description Sex Assigned At Male Encounters Encounter Location Date Provider Diagnosis Quinton Callahan III, MD [address] [place] [address] [place] [phone] 10/15/2024 Quinton Callahan Plan Of Treatment Next Appt Details Provider Name:Quinton Callahan , 02/05/2025 10:30:00 AM, [address] [place] [address] [place], [phone], Provider Name:Quinton Callahan , 03/24/2025 02:15:00 PM, [address] [place] [address] [place], [phone], Provider Name:Quinton Callahan , 12/08/2025 02:30:00 PM, [address] [place] [address] [place], [address], Progress Notes * Ana ENCINAShDOB:1960 (64 yo M)Acc No.[id number]:10/15/2024 Progress Notes Patient: Zan TONG Provider: Angeles Callahan MD :1960 A ge:64 Y S ex:Male Date:10/15/2024 Address:[address] [place], [place] [address], [id number] Subjective: * Chief Complaints: * 1 . [...] MD Date: 0 10/15/2024 Generated for Tristen bustamante/Jai/Albertosmitting on: 1 04/06/2024 09:05 PM EST
--- OUTSIDE RECORDS SUMMARY | 2024-10-29 09:30 | XMS_ITS ---
Author Organization Quinton Callahan III, MD Address [address] [place] [address] Care Team Providers Care Mechatronics Technician Name Role Phone Dr. Quinton Callahan [...] Provider Diagnosis Quinton Callahan III, MD [address] [place] [address] [place] [address] 10/29/2024 Quinton Callahan Chronic osteomyeliti s of [...] endoscopy and was referred back to his check totaler, Dr. Quinton Campos. 10/29/2024 Chronic obstructive pulmonary [...] Annual Exam, OV Provider Name:Quinton Callahan , 02/05/2025 10:30:00 AM, [address] [place] [address] [address], [place], [address], Provider Name:Quinton Callahan , 03/24/2025 02:15:00 PM, [address] [place] [address] [address], [place], [address], Provider Name:Quinton Callahan , 12/08/2025 02:30:00 PM, [address] [place] [address] [place], [address], Progress Notes * MARYJuanrheahDOB:1960 (64 yo M)Acc No.[id number]:10/29/2024 Patient: Zan TONG Provider: Angeles Callahan MD :1960 A ge:64 Y S ex:Male Date:10/29/2024 Address:[address] [place] [address], [facility] [address] [id number] Subjective: * Chief Complaints: * R ight [...] after dental work 1985upper endoscopy and colonoscopy, [facility], Dr. Quinton Campos 2009upper endoscopy, [facility], Dr. Quinton Campos, Palmer's esophagus 2014arteriogram right lower extremity 05/2019Right svorr-uel-ectr amputation 02-04-2024 * Hospitalization/Major Diagno stic Procedure: [...] healthy grandchildren. One of his siblings has Nvzfvxd-Xbere-Qeacp disease. 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 He was born in [place], [place]. He came to [place] in 1984. He is with 6 children. He has 11 grandchildren. He is a of [employer]. He trained at [employer] and served in [employer]. * Medications: T akingAtorvastatin Calcium 10 MG [...] endoscopy and was referred back to his check totaler, Dr. Quinton Campos. 5 . C hronic [...] MD Date: 0 10/29/2024 Generated for Tristen bustamante/Jai/Albertosmitting on: 1 04/06/2024 09:03 PM EST History and Physical Notes * [...]
--- OUTSIDE RECORDS SUMMARY | 2024-12-02 10:00 | XMS_ITS ---
Author Organization Quinton Callahan III, MD Address [address] [place] [address] Care Team Providers Care Costume Mistress Name Role Phone Dr. Quinton Callahan III [...] Date Provider Diagnosis Quinton Callahan III, MD [address] [place] [address] [place] [address] 12/02/2024 Quinton Callahan Chronic osteomyeliti s of [...] I today discussed the possibility of an uznaz-hct-evts amputation and what it would be like [...] endoscopy and was referred back to his machine shorthand reporter , Dr. Quinton Campos. 12/02/2024 Benign prostatic [...] Weeks, Reason: OV Provider Name:Quinton Callahan , 02/05/2025 10:30:00 AM, [address] [place] [address] [place], [address], Provider Name:Quinton Callahan , 03/24/2025 02:15:00 PM, [address] [place] [address] [place], [address], Provider Name:Quinton Callahan , 12/08/2025 02:30:00 PM, [address] [place] [address] [place], [address], Progress Notes * Ansley ENCINAS:1960 (64 yo M)Acc No.[id number]:12/02/2024 Progress Notes Patient: Zan TONG Provider: Angeles Callahan MD :1960 A ge:64 Y S ex:Male Date:12/02/2024 Address:[address] [place], [place] [id number] Subjective: * Chief Complaints: * A nnual [...] likely he is going to need an vtbyu-nvw-xmov amputation but we will see what infectious disease service first. He also reports that he was bending forward his wheelchair to sweet pickle maker something on the floor he felt a snap in the right side of his chest. Examination today the costochondral margin of one of the ribs severely tender to palpation. It is likely he disrupted this joint with The unusual stress. He declined the offer of an x-ray. We'll contiinue with current therapy. Also, he is due for colonoscopy with Dr. Quinton Campos at [facility]. This is currently being arranged. PHQ-9 L [...] after dental work 1985upper endoscopy and colonoscopy, [facility], Dr. Quinton Campos 2009upper endoscopy, [facility], Dr. Quinton Campos, Palmer's esophagus 2014arteriogram right lower extremity 05/2019Right gfcnz-pfn-loyt amputation 02-04-2024 * Hospitalization/Major Diagno stic Procedure: [...] healthy grandchildren. One of his siblings has Rcyeufo-Mrtuf-Blaro disease. 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 He was born in [place], [place]. He came to [place] in 1984. He is with 6 children. He has 11 grandchildren. He is a of [employer]. He trained at [employer] and served in [employer]. * Medications: T akingAtorvastatin Calcium 10 MG [...] I today discussed the possibility of an vzwge-ibe-fszh amputation and what it would be like walking. 3 . B arrett's esophagus determined by endoscopy - K22.70 N otes :He is due for an endoscopy and was referred back to his machine shorthand reporter, Dr. Quinton Campos. 4 . B enign [...] Angeles Callahan MD Date: Generated for Tristen bustamante/Jai/eTransmitting on: 04/06/2024 09:01 PM EST History and Physical Notes * [...] had two or more falls in the st year?: No Fall Risk Assessment:: No falls [...]
--- OUTSIDE RECORDS SUMMARY | 2024-12-25 10:58 | XMS_ITS ---
Author Organization Quinton Callahan III, MD Address [address] [place] [address] [place] [address] Care Team Providers Care Vp Treasurer Name Role Phone Dr. Quinton Callahan III Primary Care Provider [phone] REASON FOR VISIT Message Social History Sex Assigned At : Social History Observation Description Sex Assigned At Male Encounters Encounter Location Date Provider Diagnosis Quinton Callahan III, MD [address] [place] [address] [place] [address] 12/25/2024 Quinton Callahan Plan Of Treatment Next Appt Details Provider Name:Quinton Callahan , 02/05/2025 10:30:00 AM, [address] [place] [address] [place], [address], Provider Name:Quinton Callahan , 03/24/2025 02:15:00 PM, [address] [place] [address] [place], [address], Provider Name:Quinton Callahan , 12/08/2025 02:30:00 PM, [address] [place] [address] [place], [address], Progress Notes * Ana ENCINAShDOB:1960 (64 yo M)Acc No.[id number]:12/25/2024 Patient: Ana TONGh :1960 A ge:64 Y S ex:Male Address:[address] [place] [address], [address], [place], [address] * true * Date: Generated for Tristen bustamante/Jai/Henrry on: 04/06/2024 09:01 PM EST
--- OUTSIDE RECORDS SUMMARY | 2024-12-30 11:07 | XMS_ITS ---
Author Organization Quinton Callahan III, MD Address [address] [place] [address] Care Team Providers Care Registration Officer Name Role Phone Dr. Quinton Callahan III Primary Care Provider REASON FOR VISIT Rx Wheelchair Social History Sex Assigned At : Social History Observation Description Sex Assigned At Male Encounters Encounter Location Date Provider Diagnosis Quinton Callahan III, MD [address] [place] [address] [place] [address] 12/30/2024 Quinton Callahan Plan Of Treatment Next Appt Details Provider Name:Quinton Callahan , 02/05/2025 10:30:00 AM, [address] [place] [address] [place], [address], Provider Name:Quinton Callahan , 03/24/2025 02:15:00 PM, [address] [place] [address] [place], [address], Provider Name:Quinton Callahan , 12/08/2025 02:30:00 PM, [address] [place] [address] [place], [address], Progress Notes * Ana ENCINAShDOB:1960 (64 yo M)Acc No.[id number]:12/30/2024 Patient: Ana TONGh :1960 A ge:64 Y S ex:Male Address:[address] [place] [address], [address], [place], [address] * true * Date: Generated for Tristen bustamante/Jai/Henrry on: 04/06/2024 09:00 PM EST
--- OUTSIDE RECORDS SUMMARY | 2025-01-01 06:00 | XMS_ITS ---
Author Organization Quinton Callahan III, MD Address [address] [place] [address] [place] [address] Care Team Providers Care Bakery Manager Name Role Phone Dr. Quinton Callahan III Primary Care Provider REASON FOR VISIT Refused Wound Care Visit Social History Sex Assigned At : Social History Observation Description Sex Assigned At Male Encounters Encounter Location Date Provider Diagnosis Quinton Callahan III, MD [address] [place] [address] [place] [address] 01/01/2025 Quinton Callahan Plan Of Treatment Next Appt Details Provider Name:Quinton Callahan , 02/05/2025 10:30:00 AM, [address] [place] [address] [place], [address], Provider Name:Quinton Callahan , 03/24/2025 02:15:00 PM, [address] [place] [address] [place], [address], Provider Name:Quinton Callahan , 12/08/2025 02:30:00 PM, [address] [place] [address] [place], [address], Progress Notes * MARY JuanrheahDOB:1960 (64 yo M)Acc No.[id number]:01/01/2025 Patient: Ana TONGh :1960 A ge:64 Y S ex:Male Address:[address] [place] [address], [address], [place], [address] * true * Date: Generated for Tristen bustamante/Jai/Henrry on: 04/06/2024 09:04 PM EST
--- OUTSIDE RECORDS SUMMARY | 2025-01-01 08:55 | XMS_ITS ---
Author Organization Quinton Callahan III, MD Address [address] [facility] [place] [address] Care Team Providers Care Residential Program Worker Name Role Phone Dr. Quinton Callahan III Primary Care Provider REASON FOR VISIT Message Social History Sex Assigned At : Social History Observation Description Sex Assigned At Male Encounters Encounter Location Date Provider Diagnosis Quinton Callahan III, MD [address] [place] [address] [place] [address] 01/01/2025 Quinton Callahan Plan Of Treatment Next Appt Details Provider Name:Quinton Callahan , 02/05/2025 10:30:00 AM, [address] [place] [address] [place], [address], Provider Name:Quinton Callahan , 03/24/2025 02:15:00 PM, [address] [place] [address] [place], [address], Provider Name:Quinton Callahan , 12/08/2025 02:30:00 PM, [address] [place] [address] [place], [address], Progress Notes * MARY JuanrheahDOB:1960 (64 yo M)Acc No.[id number]:01/01/2025 Patient: Ana TONGh :1960 A ge:64 Y S ex:Male Address:[address] [place] [address], [address], [place], [address] * * Date:
--- OUTSIDE RECORDS SUMMARY | 2025-01-06 09:30 | XMS_ITS ---
Author Organization Quinton Callahan III, MD Address [address] [facility] [address] Care Team Providers Care Carpet Sewing Machine Operator Name Role Phone Dr. Quinton Callahan III Primary Care Provider [phone] Allergies Allergen (clinical drug ingredient) Drug/Non Drug Allergy documented on EMR Reaction Allergy Type Onset Date Status No Known Drug Allergy Unknown Drug Allergy Active No Known Food Allergy Unknown Drug Allergy Active Reason For Referral Reason several lesion on sc alp evaluate and treat Diagnosis 1 Scalp lesion (L98.9) Referral Organization Quinton Callahan III, MD Referring Provider First Name Quinton Referring Provider Last Name [place] Referring Provider Speciality Internal M edicine Referred Provider JASIEL PLATA Referred Provider Specialty Dermatology General Notes Jolie Gonzalez [facility] 01/08 03:06:12 PM >ref/demo/progress note faxed to [facility] they will call pt next week with appt, Jolie Gonzalez [facility] 01/13/2025 01:36:53 PM >Called Dr Plata office they stated they did not receive referral, so it was refaxed to them at [phone] today., Jolie Gonzalez [facility] 01/21/2025 09:42:37 AM > called Dr Plata office they do have referral and will be calling pt to set up appt Referral Priority Routine REASON FOR VISIT Peripheral arterial disease, Radiation right fbpps-mqj-xjjo amputation, Osteomyelitis right tibia, COPD, Tobacco dependence Medications Medication SIG (Take, Route, [...] many cigarettes a day do you smoke? - How soon after you wake up d o you smoke your first cigarette? Within 5 minutes Are you interested in quitting? Thinking about q uitting Additional Findings: Tobacco user Modera te cigarette smoker (10-19 cigs/day) Vital Signs Temperature 98.6 degrees Fahrenheit 01/07/20 25 Blood pressure systolic 138 mm Hg 01/07/20 25 Blood pressure diastolic 75 mm Hg 025 Heart Rate 73 /min 01/06/2025 Height 73 in 01/06/2025 Weight 197 lbs 01/06/2025 BMI 25.99 kg/m2 01/06/2025 Encounters Encounter Location Date Provider Diagnosis Quinton Callahan III, MD [address] [place] [address] [place] [address] 01/06/2025 Quinton Callahan Chronic osteomyeliti s of right tibia with draining sinus M86.461 ; Tobacco dependence F17.200 ; Overweight E66.3 ; Benign prostatic hyperplasia with lower urinary tract symptoms N40.1 ; Chronic obstructive pulmonary disease, unspecified COPD type J44.9 ; Splenic vein thrombosis I82.890 ; Hiatal hernia K44.9 ; Peripheral arterial disease I73.9 and Mixed hyperlipidemia E78.2 Assessments Encounter Date Diagnosis (ICD Code) Assessment Notes Treat ment Notes Treatment Clinical Notes 01/06/2025 Chronic osteomyeliti s of right tibia with draining sinus (ICD-10 - M86.461) His strength has improved and he feels better. Is now on long-term antibiotics. He will be followed carefully. 01/06/2025 Tobacco dependence (ICD-10 - F17.200) I have counseled him about smoking cessation and offered to refer him to smoking cessation programs in the community. He said he would consider this and try to cut down. 01/06/2025 Overweight (ICD-10 - E66.3) His body mass index is 29. We discussed diet and nutrition. I recommended aggressive weight loss and sodium restriction. 01/06/2025 Benign prostatic hyperplasia with lower urinary tract symptoms (ICD-10 - N40.1) The tamsulosin was continued today. He will notify me if his symptoms worsen. He has had no retention. He has symptoms of prostatism. 01/06/2025 Chronic obstructive pulmonary disease, unspecified COPD type (ICD-10 - J44.9) He has resumed smoking 5 cigarettes per day. He was counseled about this and made aware of the smoking cessation programs in the area. 01/06/2025 Splenic vein thrombosis (ICD-10 - I82.890) There have been no further signs of thromboembolism. 01/06/2025 Hiatal hernia (ICD-1 0 - K44.9) The symptoms of his esophageal reflux and hiatal hernia well controlled with current medications. No change in his regimen as needed. 01/06/2025 Peripheral arterial disease (ICD-10 - I73.9) He is seeing the vascular surgeon rita 2 weeks. 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 The plan is to fit him for a prosthesis. He denies any ulcers or claudication in the left leg. 01/06/2025 Mixed hyperlipidemia (ICD-10 - E78.2) A comprehensive [...] WHEEZING Inhalation ASA 1 tab Oral DuoNeb Referrals Referral Date Details 01/06/2025 01/06/2025, several lesion on scalp evaluate and treat, JASIEL PLATA Next Appt Details Follow Up: 2 Months, Reason: OV no tests Provider Name:Quinton Vazquezne , 02/05/2025 10:30:00 AM, [address] [place] [address] [address], [place], [address], Provider Name:Quinton Vallejo [place] , 03/24/2025 02:15:00 PM, [address] [place] [address] [address], [place], [address], Provider Name:Quinton Vallejo [place] , 12/08/2025 02:30:00 PM, [address] [place] [address] [address], [place], [address], Progress Notes * Ana ENCINAShDOB:1960 (64 yo M)Acc No.[id number]:01/06/2025 Progress Notes Patient: Zan TONG Provider: Angeles Callahan MD :1960 A ge:64 Y S ex:Male Date:01/06/2025 Address:[address] [place] [id number] Subjective: * Chief Complaints: * P eripheral arterial diseaseRadiation right caned-qbp-kjzk amputationOsteomyelitis right tibiaCOPDTobacco dependence * HPI: C OVID-19 Screening: I nfectious disease has put him on chcf.exe cycling for the osteomyelitis. He also has a vascular surgeon yesterday and was told that the osteomyelitis is improving. He has a better appetite and feels stronger. The discharge from the open area of the right stump has diminished. He is tolerating his antibiotic without side effects.He is having no difficulty with breathing as long as he does not exert himself. He is comfortable on room air. He continues to smoke a few cigarettes. Questions H ave you had any new onset fever, chills, cough, congestion, sore throat, shortness of breath, muscle aches? N o * ROS: G eneral/Constitutional: pain R ight leg. C hills d enies. F atigue a [...] after dental work 1986upper endoscopy and colonoscopy, [facility], Dr. Quinton Campos 2009upper endoscopy, [facility], Dr. Quinton Campos, Palmer's esophagus 2014arteriogram right lower extremity 05/2019Right xqwjj-uqz-nhml amputation 02-04-2024 * Hospitalization/Major Diagno stic Procedure: [...] healthy grandchildren. One of his siblings has Rgvoefb-Dxdqz-Odmqv disease. 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 He was born in [place], [place]. He came to [place] in 1984. He is with 6 children. He has 11 grandchildren. He is a of [employer]. He trained at [employer] and served in [employer]. * Medications: T akingDuoNeb ASA 1 tab Oral Albuterol Sulfate HFA 108 (90 Base) MCG/ACT [...] mouth once daily Atorvastatin Calcium 10 MG Tablet Take 1 tablet by mouth once daily Doxycycline Hyclate 100 MG Capsule TAKE 1 CAPSULE BY MOUTH TWICE DAILY Oral Taking DuoNeb Taking ASA 1 tab Oral Taking Albuterol Sulfate HFA 108 (90 Base) [...] 2 tablets by mouth once daily Taking Atorvastatin Calcium 10 MG Tablet Take 1 tablet by mouth once daily Taking Doxycycline Hyclate 100 MG Capsule TAKE 1 CAPSULE BY MOUTH TWICE DAILY Oral DiscontinuedGabapentin 300 MG Capsule Oral Atorvastatin Calcium 10 MG Tablet Oral Breo Ellipta 200-25 MCG/ACT Aerosol Powder Breath Activated INHALE 1 PUFF BY MOUTH ONCE DAILY Inhalation Metoprolol Succinate ER 25 MG Tablet Extended Release 24 Hour 1 tablet Orally Once a day Medication List reviewed and reconciled with the patientDiscontinued Gabapentin 300 MG Capsule Oral Discontinued Atorvastatin Calcium 10 MG Tablet Oral Discontinued Breo Ellipta 200-25 MCG/ACT Aerosol Powder Breath Activated INHALE 1 PUFF BY MOUTH ONCE DAILY Inhalation Discontinued Metoprolol Succinate ER 25 MG Tablet Extended Release 24 Hour 1 tablet Orally Once a day Medication List reviewed and reconciled with the patient * Allergies: N o Known Drug AllergyNo Known Food Allergyno[Allergies Verified] Objective: * Vitals: H t: 73, Wt:197, BMI:25.99, BP:138/75, HR:73, Temp:98.6, Ht-cm: 185.42, Wt-k.36. * P ast Orders: I maging:US renal BI (Order Date - 12/05/2024) (Performed Date - 12/05/2024) L ab:Anaerobic Culture (Order Date - 10/10/2024) (Collection Date & Time - 10/10/2024 10:51 AM) Value Reference Range Anaerobic Culture No anaerobes isolated. - Lab:Complete Blood Count no Diff * Collection [...] X10*3/uL) 0.000 (Ref Range: 0.0-0.012 X10*3/uL) * Lab:Gram stain * Collection Date 10/20/2024 10/10/2024 10/10/2024 Collection Time 02:58 PM 10:51 AM 10:40 AM Order Date 10/20/2024 10/10/2024 10/10/2024 Gram stain 1+ Gram-positive eder ci No organisms seen No organisms seen * Lab:Routine Culture * Collection Date 10/20/2024 [...] NR Ciprofloxacin 0.12 S NR NR * Lab:Basic Metabolic Panel * Collection Date [...] Clr Calc Pharmacy 84.8 69.3 99.6 * Lab:C Reactive Protein * Collection Date [...] 92 H (Ref Range: 0-15 MM/HR) * Lab:Blood Culture (Second) * Collection Date [...] Creatinine Clr Calc Pharmacy 74.5 99.6 101.0 ???Lab:TSH reflex Free T4 (Order Date - 10/21/2024) (Collection Date & Time - 10/21/2024 06:27 AM)?ValueReference Range?TSH reflex Free T41.34 0.32-4.0 - uIU/mL * Imaging:XR knee RT 4V * Performed Date 10/20/2024 05/26/2024 11:56 AM 02:52 PM Order Date 10/20/2024 05/26/2024 * Lab:Vancomycin Random * Collection Date 10/23/2024 10/22/2024 10/21/2024 Collection Time 01:58 PM 01:56 PM 02:01 PM Order Date 10/23/2024 10/22/2024 10/21/2024 Vancomycin Random 18.9 (Ref Range: 15-20 mcg/mL) 12.4 L (Ref Range: 15-20 mcg/mL) 12.7 L (Ref Range: 15-20 mcg/mL) * Lab:Creatinine * Collection Date 10/23/2024 10/22/2024 06/30/2024 Collection Time 07:19 AM 05:47 AM 11:45 AM Order Date 10/23/2024 10/22/2024 06/30/2024 Creatinine 1.14 (Ref Range: 0.5-1.4 mg/dL) 1.09 (Ref Range: 0.5-1.4 mg/dL) 1.10 (Ref Range: 0.5-1.4 mg/dL) Creatinine Clr Calc Pharmacy 69.9 73.1 NR Estimated Glomerular Filt Rate > 60 > 60 > 60 * Lab:Hold Lav - Possible Matt tology * Collection Date 10/23/2024 10/22/2024 05/29/2024 Collection Time 07:19 AM 05:47 AM 05:09 AM Order Date 10/23/2024 10/22/2024 05/29/2024 Hold Lav - Possible Hematology SEE NOTE SEE NOTE SEE NOTE * Examination: G eneral Examination: GENERAL APPEARANCE: [...] overweight. RECTAL EXAM: n ot examined. MUSCULOSKELETAL: L eft leg unremarkable, right below the knee amputation with open area on stomp draining clear liquid. PERIPHERAL PULSES: n ormal. NEUROLOGIC: a lert and oriented, cranial nerves 2-12 grossly intact, deep tendon reflexes 2+ symmetrical, motor strength normal upper and lower extremities, sensory exam intact. PSYCH: a lert, oriented. Assessment: * Assessment: 1. C hronic osteomyelitis of right tibia with draining sinus - M86.461 (Primary) ?Notes :His strength has improved and he feels better. Is now on long-term antibiotics. He will be followed carefully. 2 . T obacco dependence - F17.200 N otes :I have counseled him about smoking cessation and offered to refer him to smoking cessation programs in the community. He said he would consider this and try to cut down. 3 . O verweight - E66.3 N otes :His body mass index is 29. We discussed diet and nutrition. I recommended aggressive weight loss and sodium restriction. 4 . B enign prostatic hyperplasia with lower urinary tract symptoms - N40.1? Notes :The tamsulosin was continued today. He will notify me if his symptoms worsen. He has had no retention. He has symptoms of prostatism. 5 . C hronic obstructive pulmonary disease, [...] in his regimen as needed. 8 . P eripheral arterial disease - I73.9 N otes :He is seeing the vascular surgeon eevery 2 weeks. 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 The plan is to fit him for a prosthesis. He denies any ulcers or claudication in the left leg. 9 . M ixed hyperlipidemia - E78.2 N otes :A comprehensive laboratory database with a fasting lipid profile will be obtained. He was continued on his currrent meddications. Plan: * Treatment: 2. O thers Referral To:JASIEL PLATA Dermatology Reason:several lesion on scalp evaluate and treat * Procedure Codes: * Preventive Medicine: Counseling: C are goal follow-up plan: Counseling for abnormal BMI given Y es Above Normal BMI Follow-up D ietary management education, guidance, and counseling S moking/Tobacco Use Patient counseled on the dangers of tobacco use and urged to quit. 1 03/08/2024 Patient Lifestyle Goals P atient wants to quit Treatment Goals S et a quit date, Cut down by 1 cigarette a week Barriers S tress, Social smoker Self-Management Plan M rashida a plan to cut down number of cigarettes over time and set a date to work towards quitting * Follow Up: 2 Months (Reason: OV no tests) * Images: * Sign off status: Completed true * Provider: Angeles Callahan MD Date: 1 03/08/2024 Generated for Montanai robby/Jai/eTransmitting on: 04/06/2024 09:04 PM EST History and Physical Notes * [...] masses palpable b ilaterally MUSCULOSKELETAL: Left leg unremarkabl e, right below the knee amputation with open area on stomp draining clear liquid LYMPH NODES: no enlarged lymph no pinky,spleen normal RECTAL EXAM: not examined PSYCH: alert, oriented ORAL CAVITY: normal, unremarkable Consultation Request Notes Referral Date Referring Provider Referred Provider Not nicholas 01/06/2025 Quinton Callahan PETER several lesion on scalp evaluate and treat
--- OUTSIDE RECORDS SUMMARY | 2025-01-29 05:58 | XMS_ITS ---
Author Organization Quinton Callahan III, MD Address [address] [place] [address] [place] [address] Care Team Providers Care Batter Mixer Name Role Phone Dr. Quinton Callahan III Primary Care Provider REASON FOR VISIT Message Social History Sex Assigned At : Social History Observation Description Sex Assigned At Male Encounters Encounter Location Date Provider Diagnosis Quinton Callahan III, MD [address] [place] [address] [place] [address] 01/29/2025 Quinton Callahan Plan Of Treatment Next Appt Details Provider Name:Quinton Callahan , 02/05/2025 10:30:00 AM, [address] [place] [address] [place], [address], Provider Name:Quinton Callahan , 03/24/2025 02:15:00 PM, [address] [place] [address] [place], [address], Provider Name:Quinton Callahan , 12/08/2025 02:30:00 PM, [address] [place] [address] [place], [address], Progress Notes * MARY JuanrheahDOB:1960 (64 yo M)Acc No.[id number]:01/29/2025 Patient: Ana TONGh :1960 A ge:64 Y S ex:Male Address:[address] [place] [address], [address], [place], [address] * true * Date: Generated for Tristen bustamante/Jai/Henrry on: 04/06/2024 09:04 PM EST
--- OUTSIDE RECORDS SUMMARY | 2025-02-03 21:01 | XMS_ITS | Encounter Summary ---
Author Organization [facility] Address [address] [place] [address] [place] [address] Phone Care Team Providers Care Field Advisor Name Role Phone Quinton Callahan MD Primary Care Provider +1- [phone] Encounter Details Date Type Department Care Team (Late st Contact Info) Description 12/08/2023 Procedure Pass [facility] EKG [address] [place] [address] Social History Tobacco Use Types Packs/Day Years [...] filedocumented in this encounter Care Teams Field Advisor Relationship Specialty Start Date End Date Quinton Callahan MD [address] [place] [address] [place] [address] PCP - General Medical Oncology 11/23/23 documented as of this encounter Additional Source Comments The information contained in this document represents components of the legal health record. It is not the complete legal health record.[facility]
--- OUTSIDE RECORDS SUMMARY | 2025-02-03 21:02 | XMS_ITS | Encounter Summary ---
Author Organization [facility] Address [address] [place] [address] [place] [address] Phone Care Team Providers Care Government Professor Name Role Phone Quinton Callahan MD Primary Care Provider +1- [phone] Encounter Details Date Type Department Care Team (Late st Contact Info) Description 12/02/[address] [facility] Periop [address] [place] [address] Social History Tobacco Use Types Packs/Day Years [...] on filedocumented in this encounter Care Teams Government Professor Relationship Specialty Start Date End Date Quinton Callahan MD [address] [place] [address] [place] [address] PCP - General Medical Oncology 11/23/23 documented as of this encounter Additional Source Comments The information contained in this document represents components of the legal health record. It is not the complete legal health record.[facility]
--- OUTSIDE RECORDS SUMMARY | 2025-02-03 21:02 | XMS_ITS | Patient Health Record ---
Author Organization Quinton Callahan III, MD Address [address] [place] [address] Care Team Providers Care Cable Rigger Name Role Phone Dr. Quinton Callahan III Primary Care Provider Allergies Allergen (clinical drug ingredient) Drug/Non Drug Allergy documented on EMR Reaction Allergy Type Onset Date Status No Known Drug Allergy Unknown Drug Allergy Active No Known Food Allergy Unknown Drug Allergy Active Results Component Value Reference Range Notes Complete Blood Count no Diff Reviewed date:02/04/2024 11:35:53 AM Interpretation: Performing Lab:[facility], [address] [place] [phone] Notes/Report: White Blood Count 11.5 4.8-10.8 X10*3/uL [...] INR Reviewed date:02/04/2024 11:35:53 AM Interpretation: Performing Lab:[facility], [address] [place] [phone] Notes/Report: Prothrombin Time 13.0 10.9-12.4 SEC INTERNATIONAL [...] Time Reviewed date:02/04/2024 11:35:53 AM Interpretation: Performing Lab:[facility], [address] [place] [phone] Notes/Report: Partial Thromboplastin Time 33.9 26.0-36.8 SEC For information regarding the monitoring of direct thrombin inhibitors, please refer to Pharmacy. Basic Metabolic Panel Reviewed date:02/04/2024 11:35:53 AM Interpretation: Performing Lab:[facility], [address] [place] [phone] Notes/Report: Sodium 138 135-145 mmol/L Potassium 4.4 [...] Pathology Reviewed date:02/08/2024 08:35:16 AM Interpretation: Performing Lab:[facility], [address] [place] [address] Notes/Report: --- Name: Toney Encinas Age/Sex: 63/M : 1960 Unit#: [id number] Attend Dr: Bimal Knott MD Re02/04/24 Status : ADM IN Location: [facility] 364-1 Disch: --- SPEC : [id number] RECD : 02/04/24-5 STATUS: YUSUF MATHUR NUM: [id number] FRANTZ: 02/04/24-[address]: Bimal Knott MD ENTERED: 02/04/24-12 16 SP TYPE: Surgical OTHR DR: Quinton [...] label ed ?right leg? is a right zzzwu-qfk-cnte amputation specimen which measures 34.0 cm in [...] bone is dense, arnold-yellow and arnold-pink. A vascular dissection is performed which reveals focal calcific atherosclerosis and occlusion of the posterior tibial artery with small caliber vessels. The marrow at the margin of resection is fatty, estrada-yellow. No other erosions or ulcers are identified. Movie Critic sections are submitted labeled as follows: A1 and A2 sections f rom the proximal hallux; A3 distal phalangeal bone from the hallux, following decalcification; A4 anterior tibial vessels; A5 posterior tibial vessels; A6 a sample of marro w from the margin of resection. Cassettes A3 A4 and A5 are submitted following decalcification. CEDS CONTINUED ON NEXT PAGE --- Name: Toney Encinas joanie Cuevas Age/Sex: 63/M : 1960 Unit#: [id number] Attend Dr: Bimal Knott MD Re02/04/24 Status : ADM IN Location: [facility] 364-1 Disch: --- SPEC : [id number] RECD : 02/04/24 STATUS: YUSUF MATHUR NUM: [id number] FRANTZ: 02/04/[address] [facility]: Bimal Knott MD ENTERED: 02/04/24- 16 SP TYPE: Surgical OTHR DR: Quinton Callahan MD ORDERED: Gross Micro L5 Copies To: Quinton Callahan MD [address], [address] [place] [address] Bimal Knott MD [facility] Vascular Services [address] [place] [address] --- Signed (signature on file) Val Cris 02/06/24 1550 --- END OF REPORT Type and Screen Reviewed date:02/04/2024 11:35:53 AM Interpretation: Performing Lab:[facility], [address] [place] [phone] Notes/Report: Blood Type OP Antibody Screen NEGATIVE Complete Blood Count no Diff Reviewed date:02/08/2024 08:35:16 AM Interpretation: Performing Lab:[facility], [address] [place] [phone] Notes/Report: White Blood Count 9.4 4.8-10.8 X10*3/uL [...] ff Reviewed date:02/08/2024 08:35:16 AM Interpretation: Performing Lab:[facility], [address] [place] [phone] Notes/Report: White Blood Count 11.2 4.8-10.8 X10*3/uL [...] 0.0-0.2 /100WBC Neutrophils Absolute Auto 8.5 2.0-8.3 x10*3/u L Imm Gran Abs Auto 0.07 0.00-0.03 X10*3/uL Lymphocytes Absolute Auto 1.1 1.2-4.9 X10*3/u L Monocytes Absolute Auto 1.5 0.1-1.2 X10*3/uL Eosinophils [...] 0.0-0.2 /100WBC Neutrophils Absolute Auto 8.5 2.0-8.3 x10*3/u L Imm Gran Abs Auto 0.07 0.00-0.03 X10*3/uL Lymphocytes Absolute Auto 1.1 1.2-4.9 X10*3/u L Monocytes Absolute Auto 1.5 0.1-1.2 X10*3/uL Eosinophils Absolute Auto 0.0 0.0-0.4 X10*3/u L Basophils Absolute Auto 0.0 0.0-0.2 X10*3/uL NRBC Abs Auto 0.000 0.0-0.012 X10*3/uL C ORRECTED REPORT C ORRECTED REPORT Basic Metabolic Panel Reviewed date:02/08/2024 08:35:16 AM Interpretation: Performing Lab:[facility], [address] [place] [phone] Notes/Report: Sodium 137 135-145 mmol/L Potassium 3.9 [...] REVIEW Reviewed date:02/08/2024 08:35:16 AM Interpretation: Performing Lab:[facility], [address] [place] [phone] Notes/Report: SLIDE REVIEW VERIFIED Complete Blood Count no Diff Reviewed date:02/08/2024 08:35:16 AM Interpretation: Performing Lab:[facility], [address] [place] [phone] Notes/Report: White Blood Count 9.3 4.8-10.8 X10*3/uL [...] Panel Reviewed date:02/08/2024 08:35:16 AM Interpretation: Performing Lab:[address] [phone] Notes/Report: Sodium 136 135-145 mmol/L Potassium 3.8 [...] Level Reviewed date:02/08/2024 08:35:16 AM Interpretation: Performing Lab:[facility], [address] [place] [phone] Notes/Report: Albumin Level 2.7 3.5-5.0 g/dL Complete Blood Count no Diff Reviewed date:02/08/2024 08:35:16 AM Interpretation: Performing Lab:[facility], [address] [place] [phone] Notes/Report: White Blood Count 9.0 4.8-10.8 X10*3/uL [...] Gel Reviewed date:02/08/2024 08:35:16 AM Interpretation: Performing Lab:[facility], [address] [place] [phone] Notes/Report: Hold Green Gel See Note Specimen held untested for 24 hours; Call to request Chemistry testing. Complete Blood Count Auto Di ff Reviewed date:05/27/2024 08:42:02 AM Interpretation: Performing Lab:[facility], [address] [place] [phone] Notes/Report: White Blood Count 10.9 4.8-10.8 X10*3/uL [...] 0.00-0.03 X10*3/uL Lymphocytes Absolute Auto 1.8 1.2-4.9 X10*3/u L Monocytes Absolute Auto 1.0 0.1-1.2 X10*3/uL Eosinophils Absolute Auto 0.3 0.0-0.4 X10*3/u L Basophils Absolute Auto 0.1 0.0-0.2 X10*3/uL NRBC Abs Auto 0.000 0.0-0.012 X10*3/uL Erythrocyte Sedimentation Ra te Reviewed date:05/27/2024 08:42:02 AM Interpretation: Performing Lab:[facility], [address] [place] [phone] Notes/Report: Erythrocyte Sedimentation Rate 10 0-15 MM/HR Patients with polycythemia and many hemoglobin abnormalities may have depressed sed rates whereas patients with anemia may have elevated sed rates. Comprehensive Met. Panel Reviewed date:05/27/2024 08:42:02 AM Interpretation: Performing Lab:[address] [address] Notes/Report: Sodium 138 135-145 mmol/L Potassium 4.3 [...] Acid Reviewed date:05/27/2024 08:42:02 AM Interpretation: Performing Lab:[address] [phone] Notes/Report: Lactic Acid 1.4 0.5-2.0 mmol/L C Reactive Protein Reviewed date:05/27/2024 08:42:02 AM Interpretation: Performing Lab:[address] [address] Notes/Report: C Reactive Protein 1.01 < or = 0.50 mg/dL Blood Culture (First) Reviewed date:06/07/2024 04:51:50 AM Interpretation: Performing Lab:[address] [address] Notes/Report: Blood Culture (First) No growth after 5 days. Blood Culture (Second) Reviewed date:06/07/2024 04:51:50 AM Interpretation: Performing Lab:[address] [address] Notes/Report: Blood Culture (Second) No growth after 5 days. XR knee RT 4V Reviewed date:05/27/2024 08:42:02 AM Interpretation: Performing Lab: Notes/Report: [address] [address] XRay Report Signed Patient: Zan Encinas MR#: [id number] : 1960 Acct:[id number] Age/Sex: 64 / M ADM Date: 05/26/24 Loc: .ED Attending Dr: Ordering Physician: Gt Cruz Date of Service: 05/26/24 Procedure(s): XR knee RT 4V Accession Number(s): [id number] cc: Gt Cruz; Quinton Callahan MD EXAMINATION: XR KNEE, RIGHT CLINICAL INFORMATION: Right stump erythema/pus discharge COMPARISON: 10/01/2023. TECHNIQUE: Four views of the right knee. FINDINGS: There is mild generalized osteopenia. There has been a ofsbc-ebd-dkxe amputation. 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 TECHNIQUE: Four views of the ri ght knee. FINDINGS: There is mild generalized osteopenia. There has been a wrdpf-gps-oqps amputation. There are no permeative changes involving [...] 05/26/24 1532 DD/ 1452 TD/TT: 05/26/24 1510 Grinder Machine Knife Setter: Complete Blood Count Auto Di ff Reviewed date:05/27/2024 08:42:02 AM Interpretation: Performing Lab:[facility], [address] [place] [phone] Notes/Report: White Blood Count 9.2 4.8-10.8 X10*3/uL [...] 0.0-0.2 /100WBC Neutrophils Absolute Auto 6.0 2.0-8.3 x10*3/u L Imm Gran Abs Auto 0.04 0.00-0.03 X10*3/uL Lymphocytes Absolute Auto 1.8 1.2-4.9 X10*3/u L Monocytes Absolute Auto 1.0 0.1-1.2 X10*3/uL Eosinophils Absolute Auto 0.3 0.0-0.4 X10*3/u L Basophils Absolute Auto 0.1 0.0-0.2 X10*3/uL NRBC Abs Auto 0.000 0.0-0.012 X10*3/uL Basic Metabolic Panel Reviewed date:05/27/2024 08:42:02 AM Interpretation: Performing Lab:[facility], [address] [place] [phone] Notes/Report: Sodium 140 135-145 mmol/L Potassium 3.8 [...] Creatinine Reviewed date:05/27/2024 08:42:02 AM Interpretation: Performing Lab:[facility], [address] [place] [phone] Notes/Report: Creatinine 0.84 0.5-1.4 mg/dL Creatinine Clr [...] Random Reviewed date:05/28/2024 04:55:44 AM Interpretation: Performing Lab:[facility], [address] [place] [address] Notes/Report: Vancomycin Random 13.2 15-20 mcg/mL MR knee RT wo/w con Reviewed date:05/28/2024 04:55:44 AM Interpretation: Performing Lab: Notes/Report: [facility] [address] [place] [address] Magnetic Resonance Report Signed Patient: Zan Encinas MR#: [id number] : 1960 Acct:[id number] Age/Sex: 64 / M ADM Date: 05/26/24 Loc: [facility] 376-[address]: Luciano Mari MD Ordering Physician: Keith Menendez MD Date of Service: 05/27/24 Procedure(s): MR knee RT wo/w con Accession Number(s): [id number] cc: Quinton Callahan MD; Keith Menendez MD [...] 05/27/24 1626 DD/ 1527 TD/TT: 05/27/24 1549 Grinder Machine Knife Setter: [place] [address] Magnetic Resonance Report Signed Patient: Zan Encinas MR#: [id number] : 1960 Acct:[id number] Age/Sex: 64 / M ADM Date: 05/26/24 Loc: .S3 376-[address]: Alfredo Mari MD Ordering Physician: Keith Menendez MD Date of Service: 05/27/24 Procedure(s): MR kne e RT wo/w con Accession Number(s): [id number] cc: Quinton Callahan MD; Keith Menendez MD [...] 05/27/24 1626 DD/ 1527 TD/TT: 05/27/24 1549 Grinder Machine Knife Setter: Creatinine Reviewed date:05/28/2024 02:19:09 PM Interpretation: Performing Lab:[facility], [address] [place] [phone] Notes/Report: Creatinine 0.81 0.5-1.4 mg/dL Creatinine Clr [...] Random Reviewed date:05/30/2024 07:30:54 PM Interpretation: Performing Lab:[facility], [address] [place] [phone] Notes/Report: Vancomycin Random 13.4 15-20 mcg/mL Hold Lav - Possible Hematolo gy Reviewed date:05/30/2024 07:30:54 PM Interpretation: Performing Lab:[facility], [address] [place] [phone] Notes/Report: Hold Lav - Possible Hematology SEE NOTE Specimen will be held untested for 8 hours. Call Hematology if testing is desired. Creatinine Reviewed date:05/30/2024 07:30:54 PM Interpretation: Performing Lab:[facility], [address] [place] [phone] Notes/Report: Creatinine 0.79 0.5-1.4 mg/dL Creatinine Clr [...] ff Reviewed date:07/01/2024 10:06:14 AM Interpretation: Performing Lab:[facility], [address] [place] [phone] Notes/Report: White Blood Count 8.9 4.8-10.8 X10*3/uL [...] 0.0-0.2 /100WBC Neutrophils Absolute Auto 6.1 2.0-8.3 x10*3/u L Imm Gran Abs Auto 0.04 0.00-0.03 X10*3/uL Lymphocytes Absolute Auto 1.5 1.2-4.9 X10*3/u L Monocytes Absolute Auto 0.8 0.1-1.2 X10*3/uL Eosinophils Absolute Auto 0.3 0.0-0.4 X10*3/u L Basophils Absolute Auto 0.1 0.0-0.2 X10*3/uL NRBC Abs Auto 0.000 0.0-0.012 X10*3/uL Creatinine Reviewed date:07/01/2024 10:06:14 AM Interpretation: Performing Lab:[address] [phone] Notes/Report: Creatinine 1.10 0.5-1.4 mg/dL Estimated Glomerular Filt Rate > 60 Chronic Kidney Disease: Estimated GFR < 60 mL/min/1.73m2 Severe Kidney Disease: Estimated GFR < 15 mL/min/1.73m2 Vancomycin Trough Reviewed date:07/01/2024 10:06:14 AM Interpretation: Performing Lab:[address] [address] Notes/Report: Vancomycin Trough 20.4 10.0-20.0 mcg/mL Complete Blood Count no Diff Reviewed date:10/13/2024 03:48:51 PM Interpretation: Performing Lab:[address] [address] Notes/Report: White Blood Count 8.2 4.8-10.8 X10*3/uL [...] Panel Reviewed date:10/13/2024 03:48:51 PM Interpretation: Performing Lab:[address] [address] Notes/Report: Sodium 142 135-145 mmol/L Potassium 4.5 [...] stain Reviewed date:10/21/2024 05:29:45 AM Interpretation: Performing Lab:[address] [phone] Notes/Report: BONE RIGHT TIBIA BONE RIGHT TIBIA Gram stain Gram stain results: Gram stain No polys Gram stain 4+ red blood cells Gram stain No organisms seen Routine Culture Reviewed date:10/13/2024 03:48:51 PM Interpretation: Performing Lab:[address] [phone] Notes/Report: RIGHT BKA DEEP CULTURE Routine Culture Report - external Routine Culture 1+ Mixed skin rocio O:STAAUR Staphylococcus aureus Routine Culture Quant Org ID Routine Culture 1+ Clindamycin <=0.25 Erythromycin <=0.25 Levofloxacin 0.25 Oxacillin 0.5 Penicillin-G >=0.5 Tetracycline <=1 Trimethoprim/Sulfamethoxa zole <=10 Anaerobic Culture Reviewed date:10/21/2024 05:29:45 AM Interpretation: Performing Lab:[address] [phone] Notes/Report: BONE RIGHT TIBIA BONE RIGHT TIBIA Anaerobic Culture Report Anaerobic Culture No anaerobes isolated. Gram stain Reviewed date:10/13/2024 03:48:51 PM Interpretation: Performing Lab:[facility], [address] [place] [phone] Notes/Report: RIGHT BKA DEEP CULTURE Gram stain Gram stain results: Gram stain 1+ polys Gram stain 4+ red blood cells Gram stain No organisms seen Routine Culture Reviewed date:10/21/2024 05:29:45 AM Interpretation: Performing Lab:[facility], [address] [place] [phone] Notes/Report: Clindamycin <=0.25 Erythromycin <=0.25 Levofloxacin 0.25 Oxacillin 0.5 Penicillin-G >=0.5 Tetracycline <=1 Trimethoprim/Sulfamethoxa zole <=10 Clindamycin >=8 Erythromycin >=8 Levofloxacin <=0.12 Oxacillin >=4 Penicillin-G >=0.5 Tetracycline >=16 Trimethoprim/Sulfamethoxa zole 160 Vancomycin 1 Complete Blood Count Auto Di ff Reviewed date:10/21/2024 05:29:45 AM Interpretation: Performing Lab:[facility], [address] [place] [phone] Notes/Report: White Blood Count 8.1 4.8-10.8 X10*3/uL [...] 0.0-0.2 /100WBC Neutrophils Absolute Auto 5.7 2.0-8.3 x10*3/u L Imm Gran Abs Auto 0.03 0.00-0.03 X10*3/uL Lymphocytes Absolute Auto 1.4 1.2-4.9 X10*3/u L Monocytes Absolute Auto 0.7 0.1-1.2 X10*3/uL Eosinophils Absolute Auto 0.2 0.0-0.4 X10*3/u L Basophils Absolute Auto 0.1 0.0-0.2 X10*3/uL NRBC Abs Auto 0.000 0.0-0.012 X10*3/uL Erythrocyte Sedimentation Ra te Reviewed date:10/21/2024 05:29:45 AM Interpretation: Performing Lab:[facility], [address] [place] [phone] Notes/Report: Erythrocyte Sedimentation Rate 5 0-15 MM/HR Patients with polycythemia and many hemoglobin abnormalities may have depressed sed rates whereas patients with anemia may have elevated sed rates. Comprehensive Met. Panel Reviewed date:10/21/2024 05:29:45 AM Interpretation: Performing Lab:[address] [address] Notes/Report: Sodium 139 135-145 mmol/L Potassium 4.3 [...] Protein Reviewed date:10/21/2024 05:29:45 AM Interpretation: Performing Lab:[address] [address] Notes/Report: C Reactive Protein 0.52 < or = 0.50 mg/dL Gram stain Reviewed date:10/24/2024 02:48:30 PM Interpretation: Performing Lab:[address] [address] Notes/Report: R BKA surgical site Gram stain Gram stain results: Gram stain 3+ polys Gram stain 2+ epithelial cells Gram stain 3+ Gram-negative rods Gram stain 1+ Gram-positive cocci Routine Culture Reviewed date:10/24/2024 02:48:30 PM Interpretation: Performing Lab:[address] [address] Notes/Report: R BKA surgical site O:PSEAER Pseudomonas aeruginosa Routine Culture Quant Org ID Routine Culture 3+ O:CORSPE Corynebacterium species Routine Culture No susc Routine Culture Standard methods for susceptibility testing not established. Routine Culture Quant Org ID Routine Culture 2+ Cefepime 2 Ciprofloxacin 0.12 Gentamicin <=1 Meropenem 0.5 Piperacillin/Tazobactam <=4 Blood Culture (First) Reviewed date:11/07/2024 05:47:41 AM Interpretation: Performing Lab:[facility], [address] [place] [phone] Notes/Report: Blood Culture (First) No growth after 5 days. Blood Culture (Second) Reviewed date:11/07/2024 05:47:41 AM Interpretation: Performing Lab:[facility], [address] [place] [phone] Notes/Report: Blood Culture (Second) No growth after 5 days. XR knee RT 4V Reviewed date:10/21/2024 05:29:45 AM Interpretation: Performing Lab: Notes/Report: [address] [address] XRay Report Signed Patient: Zan Encinas MR#: [id number] : 1960 Acct:[id number] Age/Sex: 64 / M ADM Date: 10/20/24 Loc: HO.ED Attending Dr: Ordering Physician: Pooja Tapia Date of Service: 10/20/24 Procedure(s): XR knee RT 4V Accession Number(s): [id number] cc: Quinton Callahan MD; Pooja Tapia EXAMINATION: [...] 10/20/24 1311 DD/ 1156 TD/TT: 10/20/24 1300 Grinder Machine Knife Setter: [place] [address] XRay Report Signed Patient: Zan Encinas MR#: [id number] : 1960 Acct:[id number] Age/Sex: 64 / M ADM Date: 10/20/24 Loc: .ED Attending Dr: Ordering Physician: Pooja Tapia Date of Service: 10/20/24 Procedure(s): XR kne e RT 4V Accession Number(s): [id number] cc: Quinton Callahan MD; Pooja Tapia EXAMINATION: XR KNEE, RIGHT CLINICAL INFORMATION: BKA, concern for osteo COMPARISON: May 26, 2024 TECHNIQUE: [facility] FINDINGS: Redemonstrated are changes related to [...] of th e dictated fibula appears stable. XR/XR knee RT 4V IMPRESSION: Possible osteomyelit is in the distal end of the remaining right tibia. Increasing diffuse osteopenia could be related to disuse. Electronically ivania d by: Alfredo Kumar MD 10/20/2024 01:11 PM EDT RP Dictated By: Alfredo Kumar MD Signed By: <Electronically signed by Alfredo Kumar MD in OV> 10/20/24 1311 DD/ 1156 TD/TT: 10/20/24 1300 Grinder Machine Knife Setter: Complete Blood Count no Diff Reviewed date:10/24/2024 02:48:30 PM Interpretation: Performing Lab:[facility], [address] [place] [phone] Notes/Report: White Blood Count 6.8 4.8-10.8 X10*3/uL [...] Panel Reviewed date:10/24/2024 02:48:30 PM Interpretation: Performing Lab:[facility], [address] [place] [address] Notes/Report: Sodium 142 135-145 mmol/L Potassium 4.3 [...] T4 Reviewed date:10/24/2024 02:48:30 PM Interpretation: Performing Lab:[facility], [address] [place] [phone] Notes/Report: TSH reflex Free T4 1.34 0.32-4.0 uIU/mL Vancomycin Random Reviewed date:10/24/2024 02:48:30 PM Interpretation: Performing Lab:[facility], [address] [place] [phone] Notes/Report: Vancomycin Random 12.7 15-20 mcg/mL Hold Lav - Possible Hematolo gy Reviewed date:10/24/2024 02:48:30 PM Interpretation: Performing Lab:[facility], [address] [place] [phone] Notes/Report: Hold Lav - Possible Hematology SEE NOTE Specimen will be held untested for 8 hours. Call Hematology if testing is desired. Creatinine Reviewed date:10/24/2024 02:48:30 PM Interpretation: Performing Lab:[facility], [address] [place] [phone] Notes/Report: Creatinine 1.09 0.5-1.4 mg/dL Creatinine Clr [...] Random Reviewed date:10/24/2024 02:48:30 PM Interpretation: Performing Lab:[facility], [address] [place] [phone] Notes/Report: Vancomycin Random 12.4 15-20 mcg/mL Hold Lav - Possible Hematolo gy Reviewed date:10/24/2024 02:48:30 PM Interpretation: Performing Lab:[facility] [address] [address] Notes/Report: Hold Lav - Possible Hematology SEE NOTE Specimen will be held untested for 8 hours. Call Hematology if testing is desired. Creatinine Reviewed date:10/24/2024 02:48:30 PM Interpretation: Performing Lab:[address] [address] Notes/Report: Creatinine 1.14 0.5-1.4 mg/dL Creatinine Clr [...] Random Reviewed date:10/24/2024 02:48:30 PM Interpretation: Performing Lab:[address] [address] Notes/Report: Vancomycin Random 18.9 15-20 mcg/mL US renal BI Reviewed date:12/06/2024 06:19:52 AM Interpretation: Performing Lab: Notes/Report: [address] [address] Ultrasound Report Signed Patient: Zan Encinas MR#: [id number] : 1960 Acct:[id number] Age/Sex: 64 / M ADM Date: 12/04/24 Loc: HO.US Attending Dr: Chloe PACHECO Ordering Physician: Chloe Flores Date of Service: 12/04/24 Procedure(s): US renal BI Accession Number(s): [id number] cc: Quinton Callahan MD; Chloe Flores Reason [...] in OV> 12/05/24 1347 DD/ 1346 TD/TT: 12/05/241345 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 Machine Knife Setter: [place] [address] Ultrasound Report Signed Patient: Zan Encinas MR#: [id number] : 1960 Acct:[id number] Age/Sex: 64 / M ADM Date: 12/04/24 Loc: HO.US Attending Dr: Chloe Flores [facility] Ordering Physician: Chloe Flores Date of Service: 12/04/24 Procedure(s): US hubert Proctor Accession Number(s): [id number] cc: Quinton Callahan MD; Chloe Flores [facility] Reason for Exam: N28 .1 - Cyst [...] 12/05/24 1347 DD/ 1346 TD/TT: 12/05/24 1346 Grinder Machine Knife Setter: Blood Urea Nitrogen Reviewed date:01/06/2025 08:39:26 PM Interpretation: Performing Lab:[facility], [address] [place] [address] Notes/Report: Blood Urea Nitrogen 16 9-16 mg/dL Creatinine Reviewed date:01/06/2025 08:39:26 PM Interpretation: Performing Lab:[facility], [address] [place] [address] Notes/Report: Creatinine 1.00 0.5-1.4 mg/dL Estimated Glomerular Filt Rate > 60 Chronic Kidney Disease: Estimated GFR < 60 mL/min/1.73m2 Severe Kidney Disease: Estimated GFR < 15 mL/min/1.73m2 Prostate Specific Antigen Reviewed date:01/06/2025 08:39:26 PM Interpretation: Performing Lab:[facility], [address] [place] [id number] Notes/Report: Prostate Specific Antigen 1.63 <0.05-4.0 ng/mL PSA methodology: I'mOK Alinity i Chemiluminescent Microparticle Immunoassay (CMIA) Reason For Referral Reason Evaluate and Treat Irregular Heart Rate History of A-Fib Diagnosis 1 Irregular heart rate (I49.9) Diagnosis 2 Left bundle branch b lock (I44.7) Diagnosis 3 History of atrial fi brillation (Z86.79) Referral Organization Quinton Callahan III, MD Referring Provider First Name Quinton Referring Provider Last Name [place] Referring Provider Speciality Internal M edicine Referred Provider [facility] [place] [facility], Cardiology Referred Provider Specialty Cardiology General Notes Lzu Welsh 09/22/2024 11:10:39 AM > Faxed referral with progress noteBlaise Amber 10/09/2024 10:26:29 AM > patient was seen in the past on 08/06/2023 and has a follow up appointment scheduled for 01/28/25 @ 1:15pm. Mukesh with [facility] stated they did not receive the referral and to refax it so the patient is able to be seen sooner than 01/28/25.Blaise Amber 10/22/2024 02:20:35 PM > Patient is currently Admitted into HH., D, Luz 11/14/2024 02:25:27 PM > Spoke with Marlena patient has not been contacted or seen sooner. Stated she will be putting in a message to Dr. Ferrer's medical affairs director to ask if the patient can be [...] Flores Referred Provider Specialty Urology General Notes S Jolie [facility] 09/30 03:24:56 PM >I called Dr Flores [...] Referred Provider Specialty Gastroentero logy General Notes Lisa Jolie [facility] 09/30 03:23:14 PM >Called Dr Campos office pt missed his appt in July due to being in the hospital . Per Dr Callahan rescheduled his appt they scheduled the appt for 02/04/2025 at 1pm patient mailed this appt information . pt has been seen there before so no records needed to be sent Referral Priority Routine Referral Appointment Date 02/04/2025 Reason several lesion on sc alp evaluate and treat Diagnosis 1 Scalp lesion (L98.9) Referral Organization Quinton Callahan III, MD Referring Provider First Name Quinton Referring Provider Last Name Callahan Referring Provider Speciality Internal edicine Referred Provider JASIEL SAGE Referred Provider Specialty Dermatology General Notes S Jolie [facility] 01/08 03:06:12 PM >ref/demo/progress note faxed to [facility] they will call pt next week with appt, Jolie Gonzalez FLOOR HAND 01/13/2025 01:36:53 PM >Called Dr Sage office they stated they did not receive referral, so it was refaxed to them at [phone] today., Jolie Gonzalez FLOOR HAND 01/21/2025 09:42:37 AM > called Dr Sage office they do have referral and will be calling pt to set up appt Referral Priority Routine Medications Medication SIG (Take, Route, Frequency, Duration) [...] Problem Status W/U Status Risk Notes Problem 313809980 Overweight (E66.3) Active confirmed His body mass index is 29. We discussed diet and nutrition. I recommended aggressive weight loss and sodium restriction. Problem 274075135 Mixed hyperlipidemia (E78.2) Active confirmed A comprehensive laboratory database with a fasting lipid profile will be obtained. He was continued on his currrent meddications. 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 He was counseled about this and made aware of the smoking cessation programs in the area. Problem 62860681 Tobacco dependence (F17.200) Active confirmed I have counseled him about smoking cessation and offered to refer him to smoking cessation programs in the community. He said he would consider this and try to cut down. Problem Left bundle branch block (06039010) Left bundle branch block (I44.7) Active confirmed The agency service representative's interpretation of the perfusion test was that the defect in the septum may be due to the bundle branch block. I will discuss this with cardiology. Problem 83913065 Hiatal hernia (K44.9) Active confirmed The symptoms of his esophageal reflux and hiatal hernia well controlled with current medications. No change in his regimen as needed. Problem 187771447 Peripheral arterial disease (I73.9) Active confirmed He is seeing the vascular surgeon rita 2 weeks. 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 The plan is to fit him for a prosthesis. He denies any ulcers or claudication in the left leg. Problem Hoarseness (11870820) Hoarseness (R49.0) Active confirmed He will be referred to ENT for indirect laryngoscopy. Problem 6179034 Umbilical hernia without obstruction and without gangrene (K42.9) Active confirmed This is asymptomatic and requires no treatment at this time. Problem 858911788 Benign prostatic hyperplasia with lower urinary tract symptoms (N40.1) Active confirmed The tamsulosin was continued today. He will notify me if his symptoms worsen. He has had no retention. He has symptoms of prostatism. Problem 069822308 Acute right-sided low back pain with right-sided sciatica (M54.41) Active confirmed His back pain continues and I have increased the gabapentin. Problem Cardiac arrhythmia (991904714) Irregular heart rate (I49.9) Active confirmed These episodes had night have increased lately. He has had no chest pain. He has had no increase in his chronic dyspnea. Holter monitor has been ordered. He is not anticoagulated. Problem 118127176 Palmer's esophagus determined by endoscopy (K22.70) Active confirmed He is due for an endoscopy and was referred back to his gastroenterolog ist, Dr. Quinton Campos. 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 Problem 07097736786716733 Carpal tunnel syndrome on both sides (G56.03) Active confirmed He has a history of carpal tunnel syndrome treated by Dr. Raphael. He is currently asymptomatic. 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 Is now on long-term antibiotics. He will be followed carefully. Vital Signs Heart Rate 73 /min 01/06/2025 Temperature 98.6 degrees Fahrenheit 01/06/2025 Respiratory Rate 15 /min 12/02/2024 Oximetry 96 % 12/02/2024 Blood pressure diastolic 75 mm Hg 01/06/2025 Height 73 in 01/06/2025 Blood pressure systolic 138 mm Hg 01/06/2025 Weight 197 lbs 01/06/2025 BMI 25.99 kg/m2 01/06/2025 Encounters Encounter Location Date Provider Diagnosis Quinton Callahan III, MD [address] [place] [address] [place] [address] 06/12/2024 Quinton Callahan Peripheral arterial disease I73.9 ; Benign prostatic hyperplasia with lower urinary tract symptoms N40.1 ; Palmer's esophagus determined by endoscopy K22.70 ; Chronic obstructive pulmonary disease, unspecified COPD type J44.9 ; Overweight E66.3 ; Tobacco dependence F17.200 and Mixed hyperlipidemia E78.2 Quinton Callahan III, MD [address] [place] [address] [place] [address] 07/10/2024 Quinton Callahan Peripheral arterial disease I73.9 [...] Tobacco dependence F17.200 Quinton Callahan III, MD [address] [place] [address] [place] [address] 09/09/2024 Quinton Callahan Irregular heart rate I49.9 [...] draining sinus M86.461 Quinton Callahan III, MD [address] [place] [address] [place] [address] 09/30/2024 Quinton Callahan Chronic osteomyeliti s of right tibia with draining sinus M86.461 ; Overweight E66.3 ; Umbilical hernia without obstruction and without gangrene K42.9 ; Peripheral arterial disease I73.9 ; Chronic obstructive pulmonary disease, unspecified COPD type J44.9 ; Splenic vein thrombosis I82.890 ; Palmer's esophagus determined by endoscopy K22.70 and Tobacco dependence F17.200 Quinton Callahan III, MD [address] [place] [address] [place] [address] 10/29/2024 Quinton Callahan Chronic osteomyeliti s of right tibia with draining sinus M86.461 ; Tobacco dependence F17.200 ; Peripheral arterial disease I73.9 ; Palmer's esophagus determined by endoscopy K22.70 ; Chronic obstructive pulmonary disease, unspecified COPD type J44.9 ; Hiatal hernia K44.9 and Mixed hyperlipidemia E78.2 Quinton Callahan III, MD [address] [place] [address] [place] [address] 12/02/2024 Quinton Callahan Chronic osteomyeliti s of right tibia with draining sinus M86.461 ; Chronic obstructive pulmonary disease, unspecified COPD type J44.9 ; Palmer's esophagus determined by endoscopy K22.70 ; Benign prostatic hyperplasia with lower urinary tract symptoms N40.1 ; Splenic vein thrombosis I82.890 ; Hiatal hernia K44.9 ; Tobacco dependence F17.200 and Overweight E66.3 Quinton Callahan III, MD [address] [place] [address] 01/06/2025 Quinton Callahan Chronic osteomyeliti s of right tibia with draining sinus M86.461 ; Tobacco dependence F17.200 ; Overweight E66.3 ; Benign prostatic hyperplasia with lower urinary tract symptoms N40.1 ; Chronic obstructive pulmonary disease, unspecified COPD type J44.9 ; Splenic vein thrombosis I82.890 ; Hiatal hernia K44.9 ; Peripheral arterial disease I73.9 and Mixed hyperlipidemia E78.2 Quinton Callahan III, MD [address] [place] [address] [place] [address] 01/01/2025 Quinton Callahan III, MD [address] [place] [address] [place] [address] 02/12/2024 Quinton Callahan III, MD [address] [place] [address] [place] [address] 03/04/2024 Quinton Callahan III, MD [address] [place] [address] [place] [address] 05/02/2024 Quinton Callahan III, MD [address] [place] [address] [place] [address] 05/02/2024 Quinton Callahan Peripheral arterial disease I73.9 [facility] [address] [place] [id number] 06/02/2024 Quinton Callahan III, MD [address] [place] [address] [place] [address] 07/23/2024 Quinton Callahan III, MD [address] [place] [address] [place] [address] 08/27/2024 Quinton Callahan III, MD [address] [place] [address] [place] [address] 09/04/2024 Quinton Callahan III, MD [address] [place] [address] [place] [address] 12/25/2024 Quinton Callahan III, MD [address] [place] [address] [place] [address] 12/30/2024 Quinton Callahan III, MD [address] [place] [address] [address] [place] [address] 01/01/2025 Quinotn Callahan III, MD [address] [place] [address] [address] [place] [address] 01/29/2025 Quinton Callahan Assessments Encounter Date Diagnosis (ICD [...] I today discussed the possibility of an sbujb-ghl-tztz amputation and what it would be like walking. 01/06/2025 Tobacco dependence (ICD-10 - F17.200) I have counseled him about smoking cessation and offered to refer him to smoking cessation programs in the community. He said he would consider this and try to cut down. 01/06/2025 Chronic osteomyeliti s of right tibia with draining sinus (ICD-10 - M86.461) His strength has improved and he feels better. Is now on long-term antibiotics. He will be followed carefully. 05/02/2024 Peripheral arterial disease (ICD-10 - I73.9) 06/12/2024 Palmer's esophagus determined by endoscopy (ICD-10 - K22.70) He is due for an endoscopy and was referred back to his hospice nurse practitioner, Dr. Quinton Campos. 07/10/2024 Benign prostatic hyperplasia [...] endoscopy and was referred back to his hospice nurse practitioner, Dr. Quinton Campos. 01/06/2025 Overweight (ICD-10 - E66.3) His body mass index is 29. We discussed diet and nutrition. I recommended aggressive weight loss and sodium restriction. 06/12/2024 Chronic obstructive pulmonary disease, unspecified COPD type (ICD-10 - J44.9) He has resumed smoking 5 cigarettes per day. He was counseled about this and made aware of the smoking cessation programs in the area. 07/10/2024 Palmer's esophagus determined by endoscopy (ICD-10 - K22.70) He is due for an endoscopy and was referred back to his hospice nurse practitioner, Dr. Quinton Campos. 09/09/2024 Palmer's esophagus determined by endoscopy (ICD-10 - K22.70) He is due for an endoscopy and was referred back to his hospice nurse practitioner, Dr. Quinton Campos. 09/30/2024 Peripheral arterial disease [...] endoscopy and was referred back to his hospice nurse practitioner, Dr. Quinton Campos. 12/02/2024 Benign prostatic hyperplasia with lower urinary tract symptoms (ICD-10 - N40.1) The tamsulosin was continued today. He will notify me if his symptoms worsen. He has had no retention. He has symptoms of prostatism. 01/06/2025 Benign prostatic hyperplasia with lower urinary [...] been no further signs of thromboembolism. 01/06/2025 Chronic obstructive pulmonary disease, unspecified COPD type (ICD-10 - J44.9) He has resumed smoking 5 cigarettes per day. He was counseled about this and made aware of the smoking cessation programs in the area. 06/12/2024 Tobacco dependence (ICD-10 - F17.200) I [...] change in his regimen as needed. 01/06/2025 Splenic vein thrombosis (ICD-10 - I82.890) There have been no further signs of thromboembolism. 06/12/2024 Mixed hyperlipidemia (ICD-10 - E78.2) A [...] endoscopy and was referred back to his hospice nurse practitioner, Dr. Quinton Campos. 10/29/2024 Mixed hyperlipidemia (ICD-10 [...] this and try to cut down. 01/06/2025 Hiatal hernia (ICD-1 0 - K44.9) [...] aggressive weight loss and sodium restriction. 01/06/2025 Peripheral arterial disease (ICD-10 - I73.9) He is seeing the vascular surgeon rita 2 weeks. 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 The plan is to fit him for a prosthesis. He denies any ulcers or claudication in the left leg. 07/10/2024 Tobacco dependence (ICD-10 - F17.200) I [...] was continued on his currrent meddications. 09/09/2024 Mixed hyperlipidemia (ICD-10 - E78.2) A [...] Provider Name:Quinton Callahan , 02/05/2025 10:30:00 AM, [address] [place] [address] [address], [place], [address], Provider Name:Quinton Callahan , 03/24/2025 02:15:00 PM, [address] [place] [address] [address], [place], [address], Provider Name:Quinton Callahan , 12/08/2025 02:30:00 PM, [address] [place] [address] [address], [place], [address], Insurance Providers Payer Name Payer Address Payer Phone Subscriber Number Group Number Insured Name Patient Relationship to Insured Coverage Start Date Coverage End Date [employer] [address] [place] [address] [id number] Zan Olivo Self - patient is the insured 4 MEDICARE NGS [address] [place] [address] [id number] Zan Olivo Self - patient is the [...] right leg Surgical History Surgery Date(Month/Year) Right vqdco-pfe-mdyt amputation 4 arteriogram right lower extremity 05/2019 upper endoscopy, [facility], Dr. Quinton Campos, Palmer's esophagus 2013 upper endoscopy and colonosc opy, [facility], Dr. 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
--- OUTSIDE RECORDS SUMMARY | 2025-02-03 21:03 | XMS_ITS | Encounter Summary ---
Author Organization [facility] Address [address] [place] [address] [place] [address] Phone Care Team Providers Care Exercise Equipment Specialist Name Role Phone Quinton Callahan MD Primary Care Provider +1- [phone] Encounter Details Date Type Department Care Team (Late st Contact Info) Description 11/28/2023 Procedure [facility] [address] [place] [address] Social History Tobacco Use Types Packs/Day Years [...] on filedocumented in this encounter Care Teams Exercise Equipment Specialist Relationship Specialty Start Date End Date Quinton Callahan MD [address] [place] [address] [place] [address] PCP - General Medical Oncology 11/23/23 documented as of this encounter Additional Source Comments The information contained in this document represents components of the legal health record. It is not the complete legal health record.[facility]
--- OUTSIDE RECORDS SUMMARY | 2025-02-03 21:03 | XMS_ITS | Encounter Summary ---
Author Organization [facility] Address [address] [place] [address] [place] [address] Phone Care Team Providers Care Management Trainee Program Stores Name Role Phone Quinton Callahan MD Primary Care Provider +1- [phone] Encounter Details Date Type Department Care Team (Late st Contact Info) Description 11/28/2023 Procedure [facility] [address] [place] [address] Social History Tobacco Use Types Packs/Day Years [...] on filedocumented in this encounter Care Teams Management Trainee Program Stores Relationship Specialty Start Date End Date Quinton Callahan MD [address] [place] [address] [place] [address] PCP - General Medical Oncology 11/23/23 documented as of this encounter Additional Source Comments The information contained in this document represents components of the legal health record. It is not the complete legal health record.[facility]
--- OUTSIDE RECORDS SUMMARY | 2025-02-03 21:03 | XMS_ITS | Encounter Summary ---
Author Organization [facility] Address [address] [place] [address] [place] [address] Phone Care Team Providers Care Online Facilitator Name Role Phone Quinton Callahan MD Primary Care Provider +1- [phone] Encounter Details Date Type Department Care Team (Late st Contact Info) Description 11/28/2023 Procedure [facility] [address] [place] [address] Social History Tobacco Use Types Packs/Day Years [...] on filedocumented in this encounter Care Teams Online Facilitator Relationship Specialty Start Date End Date Quinton Callahan MD [address] [place] [address] [place] [address] PCP - General Medical Oncology 11/23/23 documented as of this encounter Additional Source Comments The information contained in this document represents components of the legal health record. It is not the complete legal health record.[facility]
--- OUTSIDE RECORDS SUMMARY | 2025-02-03 21:03 | XMS_ITS | Encounter Summary ---
Author Organization [facility] Address [address] [place] [address] [place] [address] Phone Care Team Providers Care Digital Imaging Specialist Name Role Phone Quinton Callahan MD Primary Care Provider +1- [phone] Encounter Details Date Type Department Care Team (Late st Contact Info) Description 11/28/2023 Procedure Pass [facility] [address] [place] [address] Social History Tobacco Use Types Packs/Day Years [...] on filedocumented in this encounter Care Teams Digital Imaging Specialist Relationship Specialty Start Date End Date Quinton Callahan MD [address] [place] [address] [place] [address] PCP - General Medical Oncology 11/23/23 documented as of this encounter Additional Source Comments The information contained in this document represents components of the legal health record. It is not the complete legal health record.[facility]
--- OUTSIDE RECORDS SUMMARY | 2025-02-03 21:04 | XMS_ITS | Clinical Summary ---
Author Organization [facility] Address [address] [place] [address] Phone Care Team Providers Care Division Supervisor Name Role Phone Quinton Callahan MD Primary Care Provider +1- [phone] Allergies No known active allergies Medications oxyCODONE-aceta [...] this topic Medical Devices Implanted Type Area Property Economist Device Identifier Shelf Expiration Date Model / Serial / Lot Graft Vascular 6.0mmx60 70cm Propaten Heparin Carmeda Bioactive Surface Thin Wall Removable Ring Stretch - [id number] Implanted:Qty: 1 on 12/02/2023 by Percy Segundo MD at [facility] STANDARD Right: Vein [employer] [id number] 08/13/2026 [id number] / [id number] / Metal Clip Celd Left Groin 10/2023 Stent Right Femoral Artery Patch Pericardium 2cm 9cm Decellularized Bovine [employer] - [id number] Implanted:Qty: 1 on 12/02/2023 by Percy Segundo MD at [facility] Right: Vein [employer] [id number] 03/24/2025 [id number] / / [id number] Procedures Procedure Name Priority Date/Time Associated Diagnosis [...] LAB BLOOD BKR ORDERABLES Final R esult [facility] [address] [place] [address] * Lipid panel (11/28/2023 1:21 AM EDT) CHOLESTEROL 125 <200 mg/dL [facility] TRIGLYCERIDES 60 35 - 150 mg/dL [facility] HDL 60 40 - 80 mg/dL [facility] CALCULATED LDL 53 50 - 129 mg/dL [facility] VLDL 12 <31 mg/dL [facility] CARDIAC RISK RATIO 2.1 0.0 - 4.0 [facility] Blood 11/28/2023 1:21 AM EDT 11/28/2023 1:35 AM EDT us Ayla Owens PA-C LAB BLOOD BKR ORDERABLES Final Result Performing Organization Address City/State/[facility] Co de Phone Number [facility] [address] [place] [address] from Last 3 Months or Most Recently Relevant to Health Maintenance Insurance [employer] PPO MEDICARE REPLACEMENT MEDICARE PART A & B [facility] MEDICARE REPLACEMENT MEDICARE PART A & B [employer] O MEDICARE REPLACEMENT MEDICARE PART A & B [employer] O MEDICARE REPLACEMENT MEDICARE PART A & B [facility] MEDICARE REPLACEMENT MEDICARE PART A & B [facility] MEDICARE REPLACEMENT MEDICARE PART A & B Advance Directives For more information, please contact: [phone] (9AM - 5PM [facility]ati/[facility], Sunday-Sunday) * Full Code (Latest Code Status on File) Date Activated Date Inactivated Comments 11/27/2023 4:16 PM Question Answer Comments Code Status Confirmed With: Patient Care Teams Division Supervisor Relationship Specialty Start Date End Date Quinton Callahan MD [address] [place] [address] [place] [address] PCP - General Medical Oncology 11/23/23 Additional Source Comments The information contained in this document represents components of the legal health record. It is not the complete legal health record.[facility]
--- OUTSIDE RECORDS SUMMARY | 2025-02-03 21:05 | XMS_ITS | Data Portability ---
Author Organization [facility], Main Office Address [address] [place] [address] 204 [address] [place] [address] Care Team Providers Care Clerical Methods Analyst Name Role Phone [facility] OTHER KEON HEREDIA Primary Care Provider [phone] Assessment Encounter Date Assessment Date Assessment LastModified [...] Organization Details Recorded Time Blood in urine 37499966 Active [address], [address], [place], [address], [facility] 4 10:17:42 Benign prostatic hyperplasia 671854060 Active [address], [address], [place], [address], [facility] 4 10:17:40 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 Active [address], [address], [place], [address], [facility] 4 10:18:23 Limb ischemia 5227760327138 5 Active [address], [address], [place], [address], [facility] 4 10:19:49 Peripheral arterial disease 537152720 Active [address], [address], [place], [address], [facility] 4 10:21:45 Chronic obstructive pulmonary disease 37169649 Active [address], [address], [place], [address], [facility] 4 10:22:55 Gastroesoph ageal reflux disease 440600865 Active [address], [address], [place], [address], [facility] 4 10:23:11 Smoker 46242552 Active [address], [address], [place], [address], [facility] 4 10:23:08 Essential hypertensio n 89577651 Active [address], [address], [place], [address], [facility] 4 10:25:41 Hyperlipide angela 32244093 Active 2023 Yvonne Belcher [address] [place] [address], [address], [place], [address], [facility] 4 10:49:02 Peripheral vascular disease 655850583 Active 2023 Yvonne Belcher [address] [facility], [address], [place], [address], [facility] 4 10:49:07 Thrombosis of splenic artery 0842958419197 9106 Active 2023 Yvonne Belcher [address] [facility], [address], [place], [address], [facility] 4 10:49:17 Left bundle branch block 89669348 Active 2023 Yvonne Belcher [address] [facility], [address], [place], [address], [facility] 4 10:49:21 Palmer's esophagus 176998653 Active 2023 Yvonne Belcher [address] [facility], [address], [place], [address], [facility] 4 10:50:44 Problem Notes None recorded. [...] Every Day Smoker Iveth Diaz MD [address] [facility], [address], [place], [address], [facility] 02/11/2024 18:13:51 Do You Have An [...] Do You Have A Medical Power Of Director Of Restaurant Operations? Yes Information not available 02/11/2024 What Was [...] (COVID-19) vaccine, UNSPECIFIED 06/25/2020 completed Nikia Montes [facility] 02/11/2024 12:20:14 SARS-COV-2 (COVID-19) vaccine, UNSPECIFIED 07/27/2020 completed Nikia Montes [facility] 02/11/2024 12:20:24 Past Encounters Encounter ID Performer Location Encounter Start Date Encounter Closed Date Diagnosis/Indication Diagnosis SNOMED-CT Code Diagnosis ICD10 Code Diagnosis IMO Codes Diagnosis Note [id number] SAMANTHA BROWNE [address] [address] 02/10/2024 10:12:50 02/11/2024 14:36:04 Limb ischemia 1603420560 9105 I99.8 now s/p right BKA due [...] daily due to bleeding Peripheral arterial insufficiency 2541931865 01182 I73.9 see aboveASA 81 mg dailyfollo wed by vascular Benign pro static hyperplasia 400881258 N40.0 continue flomax 0.8 mg qhsmonitor for outflow issues Gastroesop hageal reflux disease 518542336 K21.9 pantoprazo le 80 mg dailyconsi lia reduction if toleratesm onitor reflux Blood in urine 12656111 R31.9 had inpatientm onitor for clearing Chronic ob structive pulmonary disease 33593002 J44.9 albuterol PRNincruse dailywixel a BIDmonitor resp status Essential hypertension 15545244 I10 assumed as pt is on metoprolol 25 mg daily but no [facility] Constipation 44671787 K5 9.00 add colace 100 mg BIDmonitor for improvemen t [id number] Iveth Diaz MD [facility] [address] [address] 02/11/2024 15:43:03 02/12/2024 15:32:16 Limb ischemia 1987981281 9105 I99.8 Will change oxycodone to 10 [...] with surgeon as planned. Peripheral arterial insufficiency 6271961963 06472 I73.89 Z89.511 As above. Benign pro static hyperplasia 010850516 N40.0 No current sxs.Contin ue tamsulosin 0.8 mg qhsMonitor urinary function Gastroesop hageal reflux disease 914838541 K21.9 No current sxs.Contin ue pantoprazo le 80 mg qdMonitor GI sxs. Blood in urine 43157443 R31.0 Had one episode inpt.Now resolved.M onitor for recurrence . Chronic ob structive pulmonary disease 43454101 J43.8 Resp status good at this time.Liv nue incruse ellipta qd, Wixela 500/50 BID, duonebs BID prn and albuterol MDI 2 puffs q 4 hrs prn.Monito r resp status. Essential hypertension 84139402 I10 In good control since here (HTN is on PCP problem list)Liv nue metoprolol 25 mg qdMonitor BP and labs. Constipation 99712806 K5 9.03 Will add miralax 17 gms qd and continue colace 100 mg BIDUse prn meds if needed.Mon itor bowel function. [id number] Nam CONKLIN AT [address] [address] 02/15/2024 10:31:46 02/18/2024 15:29:05 Postoperative wound cellulitis 083800762 L76.82 exam concerning for cellulitis with increased foul smelling discharges tart doxycyclin e 100mg BID x 10 days, probiotic qd x 14 dayscheck CBC w/diff, BMP obtain x-ray R stump r/o osteomonit or for worsening sxs Amputated below knee 299 669651 Z89.519 As above. Limb ischemia 7647703876 9105 I99.8 continue oxycodone to 10 mg q 6 hrs scheduled x 7 days, then 10 mg q 8 hrs scheduled x 7 days then 5 mg q 8 hrs prn.Add oxycodone 10mg q24h prn breakthrou gh paincontin ue APAP 975 mg TID and increase gabapentin to 600 mg TID.Contin ue ASA 81 mg qdF/U with surgeon as planned. [id number] Nam CONKLIN AT [address] [address] 02/19/2024 07:36:20 02/21/2024 12:23:04 Postoperative wound cellulitis 232261286 L76.82 Continue doxycyclin e 100mg BID x 10 days, probiotic qd x 14 dayslabs and x-ray unremarkab lemonitor for resolution Limb ischemia 8903320342 9105 I99.8 continue oxycodone 10 mg q 8 hrs scheduled x 7 days then 5 mg q 8 hrs prn. oxycodone 10mg q24h prn breakthrou gh paincontin ue APAP 975 mg TID and gabapentin to 600 mg qam and afternoon, 900mg qhsContinu e ASA 81 mg qdconsult PMR management of painF/U with surgeon as planned. Amputated below knee 299 131509 Z89.519 As above. [id number] Brandenmkasad Herrera RUBIN AT [address] [address] 02/22/2024 09:19:49 02/25/2024 15:55:50 Postoperative wound cellulitis 673562138 L76.82 Continue doxycyclin e 100mg BID x 10 days, probiotic qd x 14 dayslabs and x-ray unremarkab lemonitor for resolution Limb ischemia 2770455252 9105 I99.8 continue oxycodone 10 mg q 8 hrs scheduled x 7 days then 5 mg q 8 hrs prn. oxycodone 10mg q24h prn breakthrou gh paincontin ue APAP 975 mg TID and gabapentin to 600 mg qam and afternoon, 900mg qhsContinu e ASA 81 mg qdconsult PMR management of painF/U with surgeon as planned. Amputated below knee 299 332147 Z89.519 As above. [id number] Nam DUNCANLEY AT [address] [address] 02/25/2024 07:30:39 02/26/2024 13:58:50 Postoperative wound cellulitis 602907379 L76.82 resolvedmo nitor for recurrence Limb ischemia 3825044958 9105 I99.8 continue oxycodone 10 mg q 8 hrs scheduled x 7 days then 5 mg q 8 hrs prn. oxycodone 10mg BID prn breakthrou gh paincontin ue APAP 975 mg TID, INcrease gabapentin to 900 mg qam and afternoon, 900mg qhsContinu e ASA 81 mg qdconsult PMR management of painF/U with surgeon as planned. Amputated below knee 299 690761 Z89.519 As above. [id number] Nam CONKLIN AT [address] [address] 02/28/2024 08:43:00 02/29/2024 10:22:21 Limb ischemia 4799265122 9105 I99.8 continue oxycodone 10 mg q 8 hrs scheduled x 7 days then 5 mg q 8 hrs prn. oxycodone 10mg BID prn breakthrou gh paincontin ue APAP 975 mg TID, gabapentin to 900 mg TIDContinu e ASA 81 mg qdconsult PMR management of painF/U with surgeon as planned. Amputated below knee 299 134414 Z89.519 As above. [id number] MD RUBIN Enciso AT [address] [address] 03/03/2024 11:24:29 03/27/2024 10:48:50 Limb ischemia 8817923613 9105 I99.8 s/p amputation cleared for discharge with services and ortho f/u in placedisch arged on oxycodone 5 mg q 8 prn pain #23 tablets given at time of dischargep atient will need appointmen t with PCP for f/u discussed with nursing to schedule prior to discharge Amputated below knee 299 204263 Z89.519 As above. Health Concerns Section Related Observation LastModified by Organization Detai ls LastModified Time None Recorded Concern Status LastModified by Organization Details LastModified Time None Recorded Advance Directives Directive Y: Payers Insurance Date Sequence Insurance Name Policy Number Policy Matute Covered Member ID Matute Member ID Guarantor Name 03/27/2024 1 [employer] (MEDICARE REPLACEMENT/ ADVANTAGE - PPO) [id number] Zan Encinas [id number] Zan Encinas Notes Date Note Type Note [...] f/t/h occlusion of bypass now s/p R HEALTH UNIT SUPERVISOR-AT bypass w ePTFE w/ patch angioplasties ([place] 12/01). 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 [facility] [address] [facility], [address], [place], [address], [facility] 02/22/2024 11:16:10 02/25/2024 text/html This is a 63 yo man who is being seen for acute rounding visit Patient doing well todayPain controlled with oxycodone. Gabapentin increased last week at f/u vascular with IMprovement. Reported increased pain over the weekend with 1x dose oxycodone 10mg.Actively participating in therapyself-propelling around unit in w/cPMR consulted Patient [facility]. He tells me for the most part [...] f/t/h occlusion of bypass now s/p R HEALTH UNIT SUPERVISOR-AT bypass w ePTFE w/ patch angioplasties ([place] 12/01). [facility] [address] [facility], [address], [place], [address], [facility] 02/25/2024 11:08:05 02/28/2024 text/html This is a 63 yo man who is being seen for acute rounding visit Patient had f/u vascular on 02/25recs to continue with daily dressing changes noted with small open area on medial aspectNo green chain worker or prosthesis yet. The site needs to be completely healed first. Can increase gabapentin 900mg TID and decrease oxycodone.f/u 03/11/24 Patient seen lying in bed with electro winning operator doing dressing change. He reports improvement in [...] f/t/h occlusion of bypass now s/p R HEALTH UNIT SUPERVISOR-AT bypass w ePTFE w/ patch angioplasties ([place] 12/01). [facility] [address] [facility], [address], [place], [address], [facility] 02/28/2024 12:14:07 03/03/2024 text/html Patient is a [...] f/u in place Garrett Fletcher MD [address] [facility], [address], [place], [address], [facility] 03/03/2024 11:33:58
--- OUTSIDE RECORDS SUMMARY | 2025-02-03 21:05 | XMS_ITS | Patient Health Record ---
Author Organization [facility] Address [address] [place] [address] Care Team Providers Care Coach Cleaner Name Role Phone Quinton Callahan MD Primary Care Provider Quinton Mao Unavailable [phone] Reason For Referral No Information Medications Medication SIG (Take, Route, Frequency, Duration) Notes Start Date End Date Status Aspir-81 81m 1 tablet orally 1 po qd Active Spiriva HandiHaler 18 MCG Capsule INHALE ONE CAPSULE BY MOUTH ONCE A DAY Inhalation; Duration: 30 Active Pantoprazole Sodium 40 MG Tablet Delayed Release 2 tablet orally Once a day Active Tamsulosin HCl 0.4 MG Capsule Extended Release 2 tablets Orally Once a day Active Immunizations Vaccine Route Administration Date Status Comme nts Influenza Unknown 06/11/2019 Refused Social History Tobacco Use: Social History Observation Description Date Details (start date - stop date) Former Smoker NA - NA Social History Drugs/Alcohol: Social Info Question Answer Notes Alcohol Screen Did you have a drink containing alcohol in the past year? Yes How often did you have a drink containing alcohol in the past year? 2 to 3 times a week (3 points) How many drinks did you have on a typical day when you were drinking in the past year? 3 or 4 drinks (1 point) How often did you have 6 or more drinks on one occasion in the past year? Monthly (2 points) Points 6 Interpretation Positive Tobacco Use: Social Info Question Answer Notes Tobacco Use/Smoking Patient is a former smoker How long has it been since you last smoked? 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 Caffeine: more than 4 cups per day Section Notes: He does smoke, but does not use any significant amount of alcohol He does smoke, but does not use any significant amount of alcohol Smoker but is trying to quit as of 06/09/2019; no significant alcohol Problems Problem Type SNOMED Code ICD Code Onset Dates Problem Status W/U Status Risk Notes Problem Screening for malignant neoplasm of colon (046338013) Encounter for screening for malignant neoplasm of colon (Z12.11) Active confirmed Problem Palmer's esophagus (451587687) Palmer's esophagus without dysplasia (K22.70) Active confirmed Problem Gastroesophageal reflux disease without esophagitis (970587013) Gastroesophageal reflux disease without esophagitis (K21.9) Active confirmed Plan Of Treatment Future Test Test Name Order Date UPPER GI ENDOSCOPY 03/19/2013 UPPER GI ENDOSCOPY 06/11/2019 COLONOSCOPY 06/11/2019 Next Appt Details Provider Name:Quinton Valle Beth , 02/04/2025 01:00:00 PM, [address] [place] [address], [facility] [address], [place], [address], Insurance Providers Payer Name Payer Address Payer Phone Subscriber Number Group Number Insured Name Patient Relationship to Insured Coverage Start Date Coverage End Date MEDICARE OF [place] [address] [place] [address] [id number] JUAN FRANCISCO HOWELL Self - patient is the insured Medical (General) History Medical History History ICD Code Colonoscopy in 12/2009 neg e xcept for a hyperplastic polyp, diverticulosis, and internal hemmorhoids GERD with a small area of Ba rrett's esophagus--EGD in 12/2009-small HH-bx neg for dysplasia Splenic vein thrombosis in approx 1999-- had previously been on Coumadin Denies IA,DM,CVA,renal disease EGD 04/2013 with small area o f Palmer's, no dysplasia nor esophagitis; small hiatal hernia COPD PVD with claudication as below Surgical History Surgery Date(Month/Year) 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 Knott 06/18/2019
[2025-02-09 13:29] VITALS: BP 135/77; PULSE 81; RESP 17; TEMP 36.4; O2SAT 99; BMI 26.3
[2025-02-09] MEDS: Lactated Ringers 1,000 ML 100 ML IVCONT (13:39)
--- NOTE | 2025-02-09 14:25 | MHC.SHP ---
Pre-Procedural Eval Section A - 24 Hr Update-Section A only Date of Service: 02/09/25 The patient is an INPATIENT: No Changes since office visit: Yes Patient answered all questions The patient has been examined within 24 hours of the surgical procedure. The History & Physical has been completed within 30 days and I have reviewed it.: Yes Section B - Complete if H&P > 30 days Chief Complaint: Peripheral vascular disease, unspecified Allergies: Allergies Allergy/AdvReac Type Severity Reaction Status Date / Time No Known Allergies Allergy Verified 02/03/25 14:18 Plan I have reviewed the history and physical and performed a pertinent physical examination on my patient. No changes have occurred unless specified. Time Spent With Patient Time: Total time managing care of this patient today ____ minutes.
--- NOTE | 2025-02-09 14:30 | HO.ANESPROP2 ---
Documented by User: Gill Shepherd NP 02/04/25 12:02 HPI - Anesthesia Eval Consult details Narrative: 64yo M for Right Foot Stump Debridement and Skin Substitute s/p Right Leg Amputation Below Knee REVISION 09/2024 with GA-LMA 5 s/p amp 01/2024 with GA-LMA 5 s/p fem pop 07/2023 (cardiac optimized prior) Follows [facility] Cardiology for LBBB, risk factor mod. Stable at 01/28/25 office visit. Started on Xarelto for ? afib in the past [facility] Active Problems Active Problems: All Active Problems Complication of below knee amputation stump (Acute) Left bundle branch block (Acute) Palpitations (Acute) Peripheral arterial disease (Acute) Cellulitis of right lower extremity (Acute) Hematuria (Acute) Renal cyst (Acute) Encounter for preoperative pulmonary examination (Acute) Preop cardiovascular exam (Acute) Chronic pain syndrome (Acute) BPH (benign prostatic hyperplasia) (Acute) Past Medical History Medical History Peripheral arterial disease Below-knee amputation of right lower extremity Osteomyelitis Krish angina Left bundle branch block Bakers cyst Nicotine dependence, cigarettes, uncomplicated Arthritis BPH (benign prostatic hyperplasia) Elevated cholesterol Complex regional pain syndrome i of right lower limb S/P angiogram of extremity (07/18/23) Atrial fibrillation History of Palmer's esophagus Splenic vein thrombosis History of femoral angiogram GERD (gastroesophageal reflux disease) COPD (chronic obstructive pulmonary disease) Family History Family history of problems with anesthesia: No Surgical History Surgical History Hx of BKA History of tonsillectomy Hx of oral surgery Hx of tracheostomy History of esophagogastroduodenoscopy (EGD) H/O colonoscopy History of Problems with Anesthesia: No Social History Social History Household Members: Family and Children Household Members Other:: Son, son girlfriend, grandbaby Housing: Apartment Housing Other:: 3 stairs to climb Are you a primary youth care professional to a significant other at home: No Do you presently have visiting nurse or other home services: No Comment: Dr Knott made aware of absent pulse and sensation in right foot Patient Tobacco Use Status: Current everyday Tobacco user Tobacco use type: Cigarette Cigarette Packs Per Day: 1 Cigarettes Per Day: 20.0 Years Smoked: 50 e-Cigarette/Vaping Use: Never Used Second Hand Smoke Exposure: No Use of substances other than those prescribed or required for medical reasons: Yes Substance Use Type: Marijuana Substance Use Frequency: Daily Have you been hit, kicked, punched, or otherwise hurt by someone within the past year? If so, by whom?: No Are you DNR?: No Advance Directives: Yes Advance Directives Information Provided: No Advance Directives on File: Yes Advance Directives Date on File: 01/17/24 service: Yes Meds Allergies Allergy/AdvReac Type Severity Reaction Status Date / Time No Known Allergies Allergy Verified 02/03/25 14:18 Home Medications ?Medication ?Instructions ?Recorded ?Confirmed ?Last Taken ?Type aspirin 81 mg tablet,delayed 81 mg PO DAILY 01/12/20 02/09/25 02/08/25 History release (Luis Low Dose Aspirin) pantoprazole 40 mg tablet,delayed 80 mg PO DAILY@0630 01/12/20 02/09/25 02/09/25 History release tamsulosin 0.4 mg capsule 0.8 mg PO DAILY 01/12/20 02/09/25 02/09/25 History atorvastatin 10 mg tablet 10 mg PO DAILY 05/04/20 02/09/25 02/09/25 History [id number]-ff-[id number] 300 mcg-K 60 1 tab PO DAILY 10/02/23 02/09/25 02/08/25 History mcg-lycop 600 mcg-lutein 300 mcg tablet (Centrum Silver Men) metoprolol succinate 25 mg 25 mg PO DAILY 12/17/23 02/09/25 10/20/24 History tablet,extended release 24 hr Held on 10/23/24. Instructions: Resume on 11/10/24. Your metoprolol was held because your heart rate was low while in the hospital. Heart rate and blood pressure were well-controlled throughout hospital stay. Continue to hold metoprolol at this time until you follow up with your PCP to consider whether stopping medication or resuming it at a later date. albuterol sulfate 90 mcg/actuation 2 puff inhalation Q4H PRN 01/07/24 02/09/25 02/08/25 History aerosol inhaler shortness of breath or wheezing gabapentin 300 mg capsule 600 mg PO BID 05/26/24 02/09/25 02/08/25 History acetaminophen 500 mg tablet 1,000 mg PO Q6H PRN Pain 10/07/24 02/09/25 02/08/25 History (Tylenol Extra Strength) Exam Pertinent Lab Results Pertinent Lab Results: Laboratory Tests 10/21/24 01/06/25 06:27 13:58 WBC 6.8 Hgb 13.9 L Hct 40.9 L Plt Count 211 Sodium 142 Potassium 4.3 Chloride 108 Carbon Dioxide 26 BUN 16 Creatinine 1.00 Narrative Narrative: EKG 10/2024 SB LBBB ECHO 2023 Conclusions: - Normal left ventricular size, thickness, and systolic function. The visually estimated ejection fraction is between 55-60%. - Normal right ventricular cavity size and systolic function. - There is mild dilatation of the ascending aorta measuring 3.40 cm. NM gosia perf SPECT rest & str 07/2023 Impression: 1. Myocardial perfusion imaging study shows fixed distal anterior defect; possible prior infarct. Cannot exclude findings of the left bundle branch block. 2. Gated LVEF 52% during stress and rest. 3. Transient ischemic dilatation not present. Assessment and Plan Assessment Anesthesia Assessment: Chart Reviewed Final Anesthetic Review Family History of Problems with Anesthesia: No History of Problems with Anesthesia: No Documented by User: Madelin Al DO 02/09/25 14:54 [facility] Past Medical History Medical History Peripheral arterial disease Below-knee amputation of right lower extremity Osteomyelitis Krish angina Left bundle branch block Bakers cyst Nicotine dependence, cigarettes, uncomplicated Arthritis BPH (benign prostatic hyperplasia) Elevated cholesterol Complex regional pain syndrome i of right lower limb S/P angiogram of extremity (07/18/23) Atrial fibrillation History of Palmer's esophagus Splenic vein thrombosis History of femoral angiogram GERD (gastroesophageal reflux disease) COPD (chronic obstructive pulmonary disease) Family History Family history of problems with anesthesia: No Surgical History Surgical History Hx of BKA History of tonsillectomy Hx of oral surgery Hx of tracheostomy History of esophagogastroduodenoscopy (EGD) H/O colonoscopy History of Problems with Anesthesia: No Social History Social History Household Members: Family and Children Household Members Other:: Son, son girlfriend, grandbaby Housing: Apartment Housing Other:: 3 stairs to climb Are you a primary youth care professional to a significant other at home: No Do you presently have visiting nurse or other home services: No Comment: Dr Knott made aware of absent pulse and sensation in right foot Patient Tobacco Use Status: Current everyday Tobacco user Tobacco use type: Cigarette Cigarette Packs Per Day: 1 Cigarettes Per Day: 20.0 Years Smoked: 50 e-Cigarette/Vaping Use: Never Used Second Hand Smoke Exposure: No Use of substances other than those prescribed or required for medical reasons: Yes Substance Use Type: Marijuana Substance Use Frequency: Daily Have you been hit, kicked, punched, or otherwise hurt by someone within the past year? If so, by whom?: No Are you DNR?: No Advance Directives: Yes Advance Directives Information Provided: No Advance Directives on File: Yes Advance Directives Date on File: 01/17/24 service: Yes Meds Allergies Allergy/AdvReac Type Severity Reaction Status Date / Time No Known Allergies Allergy Verified 02/03/25 14:18 Home Medications ?Medication ?Instructions ?Recorded ?Confirmed ?Last Taken ?Type aspirin 81 mg tablet,delayed 81 mg PO DAILY 01/12/20 02/09/25 02/08/25 History release (Luis Low Dose Aspirin) pantoprazole 40 mg tablet,delayed 80 mg PO DAILY@0630 01/12/20 02/09/25 02/09/25 History release tamsulosin 0.4 mg capsule 0.8 mg PO DAILY 01/12/20 02/09/25 02/09/25 History atorvastatin 10 mg tablet 10 mg PO DAILY 05/04/20 02/09/25 02/09/25 History [id number]-mo-vvlrn 300 mcg-K 60 1 tab PO DAILY 10/02/23 02/09/25 02/08/25 History mcg-lycop 600 mcg-lutein 300 mcg tablet (Centrum Silver Men) metoprolol succinate 25 mg 25 mg PO DAILY 12/17/23 02/09/25 10/20/24 History tablet,extended release 24 hr Held on 10/23/24. Instructions: Resume on 11/10/24. Your metoprolol was held because your heart rate was low while in the hospital. Heart rate and blood pressure were well-controlled throughout hospital stay. Continue to hold metoprolol at this time until you follow up with your PCP to consider whether stopping medication or resuming it at a later date. albuterol sulfate 90 mcg/actuation 2 puff inhalation Q4H PRN 01/07/24 02/09/25 02/08/25 History aerosol inhaler shortness of breath or wheezing gabapentin 300 mg capsule 600 mg PO BID 05/26/24 02/09/25 02/08/25 History acetaminophen 500 mg tablet 1,000 mg PO Q6H PRN Pain 10/07/24 02/09/25 02/08/25 History (Tylenol Extra Strength) Exam Exam Date and Time: 02/09/25 1430 Height,Weight and Vital Signs: Height 6 ft Weight 87.9 kg Vital Signs Temperature 97.6 F 02/09/25 13:29 Pulse Rate 81 02/09/25 13:29 Respiratory Rate 17 02/09/25 13:29 Blood Pressure 135/77 02/09/25 13:29 Pulse Oximetry 99 02/09/25 13:29 Oxygen Delivery Method Room Air 02/09/25 13:29 Temperature 97.6 F 02/09/25 13:29 Pulse Rate 81 02/09/25 13:29 Respiratory Rate 17 02/09/25 13:29 Blood Pressure 135/77 02/09/25 13:29 Pulse Oximetry 99 02/09/25 13:29 Oxygen Delivery Method Room Air 02/09/25 13:29 Airway Mallampati Class: II TM Dist: >3cm Neck ROM: Full Loose/Missing/Broken Teeth: Yes (edentulous) Heart: S1S2 Lungs: CTAB Assessment and Plan Assessment Anesthesia Assessment: Anesthesia Plan Discussed and Chart Reviewed Final Anesthetic Review Family History of Problems with Anesthesia: No History of Problems with Anesthesia: No NPO: Yes ASA Class: III Final Preanesthetic Review: No Changes in Pt Med Stat, Meds/Allgs Chart Reviewed, Consent Obtained/Reviewed and Anes Risks/Benef Reviewed Patient Risk: Intermediate Procedure Risk: Low Anesthetic Plan Anesthetic Plan: MAC: and Agree w/ Assess. and Plan Disposition: Standard PACU
[2025-02-09 15:24] VITALS: BP 130/67; PULSE 77; RESP 12; TEMP 36.3; O2SAT 95
[2025-02-09 15:29] VITALS: BP 127/73; PULSE 71; RESP 21; O2SAT 95
[2025-02-09 15:40] VITALS: BP 119/71; PULSE 72; RESP 14; TEMP 36.2; O2SAT 97
--- NOTE | 2025-02-09 18:07 | W.PM.OPN ---
Operative Note Operative Note Date of Service: 02/09/25 Narrative: Operative note by [facility] Preoperative diagnosis:1. Nonhealing right BKA stump ulcer 2. Diabetic ulcer Postoperative diagnosis: Same Procedure: Excisional debridement into muscle 2. Application of skin substitute Surgeon:Bimal Knott M.D. Marketing Program Manager: Vinh Anesthesia: Local with sedation by Dr. Al from anesthesia Specimens: None Drains: None Estimated blood loss: Minimal Indications: Very pleasant 64-year-old gentleman prior history of BKA nonhealing stump. Has undergone previous revision. Has a nonhealing residual ulcer. He now presents for debridement and skin substitute placement. The patient has signed the informed consent after reviewing risks, complications, benefits, and alternatives previously discussed with the patient. The patient was given the opportunity to ask any additional questions or voice any concerns. All questions were answered to the patient's satisfaction. Procedure in detail: Patient was brought to the operating room prior to which a time-out was called for patient identification and site verification. Right stump was prepped and draped in standard surgical fashion. Stump was cleaned. There was an ulcer measuring 4 x 2.5 x 0.1 cm. Using a 15 blade and curette this was debrided down into muscle. We did have a good bleeding tissue bed. Once this was debrided and completion it measured 4.3 x 2.6 x 0.3 cm. Once this was done it was thoroughly irrigated clean. Kerecisis skin substitute was placed. There was 3 layers placed in this open area. Subsequently a bolster dressing was sutured into place using a 3-0 nylon suture. Once this was all accomplished sterile dressing including 4 x 4 Kerlix wrap was applied at the end the case sponge instrument counts were correct. Patient tolerated the procedure well. Returned to recovery with stable vitals. This note is constructed using voice recognition software. While every effort has been made to ensure accuracy, data coordinator errors may have been included. Thank you for allowing me to participate in the care of your patient. Yours sincerely, Bimal Knott MD, FACS, R.P.V.I.
== END 2025-02-09 16:57 | disposition home or self-care (01) ==
PROVIDERS: PCP Internal Medicine Medical Oncology; Visit Provider Surgery Vascular Surgery
PROC: (CPT 15271; principal; 2025-02-09 14:20)
DX: T87.89 Other complications of amputation stump (principal); E11.622 Type 2 diabetes mellitus with other skin ulcer; L97.819 Non-pressure chronic ulcer of other part of right lower leg with unspecified severity; Y83.5 Amputation of limb(s) as the cause of abnormal reaction of the patient, or of later complication, without mention of misadventure at the time of the procedure; E11.51 Type 2 diabetes mellitus with diabetic peripheral angiopathy without gangrene; G90.521 Complex regional pain syndrome I of right lower limb; I48.91 Unspecified atrial fibrillation; J44.9 Chronic obstructive pulmonary disease, unspecified; I44.7 Left bundle-branch block, unspecified; E78.00 Pure hypercholesterolemia, unspecified; Z89.511 Acquired absence of right leg below knee; Z79.82 Long term (current) use of aspirin; Z79.899 Other long term (current) drug therapy
CPT/HCPCS: 15271; J0690; J2003; J2250; J2704; J2795; J3010; Q4158

== ENCOUNTER → 2025-02-09 13:10 | Outpatient (BNV) | payer MEDICARE, SELFPAY | PROVIDERS: PCP Internal Medicine Medical Oncology; Visit Provider Surgery Vascular Surgery | DX: T87.89 Other complications of amputation stump (principal) | CPT/HCPCS: 11043 ==